=== PATIENT | male | born 1950 | race Caucasian/White ===

== ENCOUNTER 2018-10-14 09:49 | Outpatient (CLI) | payer OTHER, SELFPAY ==
[2018-10-14 11:57] LABS: INR 1.9 (0.9-1.1); Prothrombin Time 18.8 sec (9.3-11.0)
[2018-10-14 14:15] LABS: Hemoglobin A1C 8.3 % (4.5-6.2)
== END 2018-10-14 10:09 ==
PROVIDERS: PCP Family Medicine; Visit Provider Family Medicine
DX: I48.91 Unspecified atrial fibrillation (principal); E11.9 Type 2 diabetes mellitus without complications
CPT/HCPCS: 36415; 83036; 85610; 87086

== ENCOUNTER 2018-10-14 09:56 | Outpatient (REF) | payer OTHER, SELFPAY | END 2018-10-14 10:16 | LOC: LBN 09:56 | PROVIDERS: PCP Family Medicine; Visit Provider Family Medicine | DX: R30.0 Dysuria (principal) | CPT/HCPCS: 87077; 87086; 87186 ==

== ENCOUNTER 2018-10-20 06:38 | Emergency (ER) | payer OTHER, SELFPAY ==
[2018-10-20] VITALS (19 sets, daily range): BP systolic 101–145; BP diastolic 76–96; PULSE 99–135; RESP 16–18; TEMP 36.6–36.8; O2SAT 93–98
--- NOTE | 2018-10-20 07:16 | DI.CT_ITS ---
SYMPTOMS/DIAGNOSIS: RT LOWER QUAD PAIN, ? APPENDICITIS VS DIVERTICULITIS VS HERNIA CT OF THE ABDOMEN AND PELVIS: Comparison is made with [id number]. The urinary bladder shows marked wall thickening which was not present on the previous exam. There is some adjacent stranding in the surrounding fat. The prostate is enlarged, impressing on the base of the bladder. There is dilatation of the right ureter as well as some urothelial enhancement and periureteral stranding. No obstructing stones are seen. There is mild right hydronephrosis. There is also mild dilatation of the left ureter and mild urothelial enhancement when compared with the previous exam. A nonobstructing stone is again seen at the lower pole of the left kidney. The heart is enlarged. The lung bases are clear. There has been previous surgery at the GE junction and fundus of the stomach. A small to moderate sized hiatal hernia is present. There is a nodular area of enhancement seen in the antrum of the stomach measuring 11 mm in diameter. No bowel dilatation is seen. The appendix appears normal. There is extensive diverticulosis but no evidence of diverticulitis. There is no free air or free fluid. The patient is status post midline hernia repair. There are bilateral fatty containing inguinal hernias. The liver shows mild enlargement and fatty infiltration. Stones vs sludge are noted in the gallbladder. There is no abnormal gallbladder wall distention, wall thickening or biliary dilatation. The pancreas shows mild atrophy. The spleen and adrenals are unremarkable. There is a retroaortic left renal vein. The aorta is normal in diameter and shows calcification. Degenerative disc changes are seen in the spine. Degenerative changes are also seen in both hips. IMPRESSION: Bladder wall thickening and surrounding stranding is suspicious for cystitis. There also appears to be mild dilatation of both ureters, right greater than left with some urothelial enhancement. No obstructing stones are seen.
--- NOTE | 2018-10-20 07:22 | ED.GENADUL_ITS ---
Discharge Plan Disposition Patient Disposition: STILL A PATIENT Condition: Fair Discharge Details Chief Complaint: GenMedical Clinical Impression: Abdominal pain, Urinary tract infection Primary Care Provider: Dominic Restrepo ED Provider: Mesfin Kern Maurepas Meds and New Rx's Prescriptions: New ciprofloxacin HCl 500 mg tablet 500 mg PO BID Qty: 14 RF: 0 Continued cholecalciferol (vitamin D3) 1,000 UNIT capsule 5,000 unit PO DAILY RF: 0 multivitamin [Daily Vitamin] 1 EACH tablet 2 ea PO DAILY RF: 0 cyanocobalamin (vitamin B-12) [Vitamin B-12] 500 MCG tablet 500 mcg PO DAILY RF: 0 calcium carbonate-vitamin D3 [Calcium 600 + D(3)] 1 EACH tablet 2 ea PO DAILY RF: 0 iron 159 MG tablet extended release 159 mg PO DAILY RF: 0 bupropion HCl 150 MG tablet extended release 24 hr 150 mg PO DAILY 30 Days Qty: 30 RF: 3 metformin [Glucophage] 1,000 MG tablet 1,000 mg PO BID Qty: 180 RF: 4 lovastatin 20 MG tablet 20 mg PO DAILY Qty: 90 RF: 3 lisinopril 5 MG tablet 5 mg PO DAILY Qty: 90 RF: 3 diltiazem HCl [Cardizem CD] 240 mg capsule,extended release 24hr 240 mg PO DAILY Qty: 90 RF: 3 terazosin 2 mg capsule 2 mg PO DAILY Qty: 90 RF: 3 warfarin [Coumadin] 5 mg tablet 5 mg PO DIRECTED Qty: 90 RF: 4 ascorbic acid (vitamin C) [Vitamin C] 1,000 MG tablet extended release 1,000 mg PO DAILY RF: 0 omega-3 fatty acids [Fish Oil Concentrate] 1,000 mg Capsule 2,400 mg PO DAILY RF: 0 Discontinued cephalexin 500 mg capsule 500 mg PO QID Qty: 28 RF: 0 Discharge Instructions Additional Instructions: Your cat scan did not show any concerning findings other than you continue to have a urinary tract infection follow up with your primary care provider in a week, and you should have your inr rechecked at that time if you have severe worsening pain or fevers return to the emergency department Medical Decision Making <Gloria Travis DO - Last Filed: 10/20/18 07:34> 67-year-old male with a history of diabetes, atrial fibrillation on Coumadin, hyperlipidemia, hypertension, depression, osteoarthritis who presents with intermittent dull, right lower quadrant abdominal pain for the past 3 days. No other associated symptoms. Is currently taking Bactrim for a UTI per PCP but no relief in symptoms after starting antibiotics. Pulse 103. Afebrile. Patient appears nontoxic and in no acute distress. He has right lower quadrant tenderness but no rebound, guarding. Negative heel jar sign, psoas sign, obturator sign. Differential diagnosis includes acute appendicitis, diverticulitis, pyelonephritis, kidney stone, hernia, bowel obstruction. Will place an IV, bolus IV fluids, labs, urinalysis, CT abdomen and pelvis. Patient is declining pain medication at this time. 0730 -- case endorsed to Dr. Kern to f/u on lab and imaging results. Medical Records Medical records reviewed: Yes I reviewed the patient's medical records. ECG Data Attestation: I personally reviewed and interpreted this ECG (s) as follows: Interpretation: 0727: Rate of 118. Atrial fibrillation. T wave inversion in 1, 2, aVL, appears new compared to previous. No acute ST elevation or depression. QTc 448. QRS 92. HPI <Gloria Travis DO - Last Filed: 10/20/18 07:34> General Mode of arrival: ambulatory . Date/Time Provider Initiated Documentation: 10/20/18 06:38 . Limitations to Documentation: no limitations . Information obtained by: patient . HPI Narrative: Pt is a 67yo M w/ a h/o DM, Afib, BPH, Depression, HTN, HLD, Osteoarthritis who presents with intermittent, dull right lower quadrant abdominal pain for the past 3 days. Patient denies radiation of pain, states the pain is currently 6/10, and denies any aggravating or relieving factors. Patient states he has not taken any medication for pain patient states he had similar pain one year ago and was diagnosed with diverticulitis. He denies any fever, nausea, vomiting, rectal bleeding, chest pain or shortness of breath. Patient was seen by his PCP office recently and diagnosed with UTI for symptoms of dysuria, urgency, frequency and states he has been taking Bactrim but has had no relief of symptoms. Related Data Home Medications Medication Instructions Recorded Confirmed cholecalciferol (vitamin D3) 5,000 unit PO DAILY 02/19/13 10/20/18 calcium carbonate-vitamin D3 2 ea PO DAILY 03/29/14 10/20/18 [Calcium 600 + D(3)] cyanocobalamin (vitamin B-12) 500 mcg PO DAILY 03/29/14 10/20/18 [Vitamin B-12] multivitamin [Daily Vitamin] 2 ea PO DAILY 03/29/14 10/14/18 iron 159 mg PO DAILY 05/29/17 10/20/18 bupropion HCl 150 mg PO DAILY 30 Days #30 tab-cap 07/01/17 10/20/18 metformin [Glucophage] 1,000 mg PO BID #180 tab-cap 07/26/17 10/20/18 lovastatin 20 mg PO DAILY #90 tab-cap 10/25/17 10/20/18 ascorbic acid (vitamin C) [Vitamin 1,000 mg PO DAILY 01/03/18 10/20/18 C] lisinopril 5 mg PO DAILY #90 tab-cap 01/24/18 10/20/18 diltiazem CD 240 mg 240 mg PO DAILY #90 tab-cap 06/25/18 10/20/18 capsule,extended release 24 hr terazosin 2 mg capsule 2 mg PO DAILY #90 tab-cap 08/21/18 10/20/18 warfarin 5 mg tablet 5 mg PO DIRECTED #90 tab-cap 10/15/18 10/20/18 ciprofloxacin HCl 500 mg PO BID #14 tab 10/20/18 omega-3 fatty acids [Fish Oil 2,400 mg PO DAILY 10/20/18 10/20/18 Concentrate] Previous Rx's Medication Instructions Recorded bupropion HCl 150 mg PO DAILY 30 Days #30 tab-cap 07/01/17 metformin [Glucophage] 1,000 mg PO BID #180 tab-cap 07/26/17 lovastatin 20 mg PO DAILY #90 tab-cap 10/25/17 lisinopril 5 mg PO DAILY #90 tab-cap 01/24/18 diltiazem CD 240 mg 240 mg PO DAILY #90 tab-cap 06/25/18 capsule,extended release 24 hr terazosin 2 mg capsule 2 mg PO DAILY #90 tab-cap 08/21/18 warfarin 5 mg tablet 5 mg PO DIRECTED #90 tab-cap 10/15/18 ciprofloxacin HCl 500 mg PO BID #14 tab 10/20/18 Allergies Allergy/AdvReac Type Severity Reaction Status Date / Time No Known Allergies Allergy Unverified 10/14/18 09:16 General Stated Complaint: GenMedical TREVOR: 3 Review of Systems <Gloria Travis DO - Last Filed: 10/20/18 07:34> Review of Systems All systems reviewed & are unremarkable except as noted in HPI and below Constitutional Reports as per HPI, Denies chills and Denies fever(s) Eyes Denies blurry vision ENT Denies dizziness, Denies sore throat and Denies throat swelling Cardiovascular Denies chest pain and Denies dyspnea Respiratory Denies dyspnea Gastrointestinal Reports abdominal pain, Denies diarrhea and Denies vomiting Genitourinary Denies hematuria and Denies dysuria Musculoskeletal Denies back pain and Denies numbness Integumentary/Breasts Denies lesions and Denies rash Neurologic Denies dizziness and Denies numbness Allergic/Immunologic Denies throat swelling PFSH <Gloria Travis DO - Last Filed: 10/20/18 07:34> Medical History Atrial fibrillation BPH (benign prostatic hyperplasia) Chronic anticoagulation DM (diabetes mellitus) Depression Hyperlipidemia Osteoarthritis of both knees Surgical History Cholecystectomy (02/20/18) Ronnell Fundoplication Repair of umbilical hernia Replacement of total knee joint Aviva-en-y surgery Tonsillectomy Vasectomy Family History Mother No problems noted. Father No problems noted. Sister No problems noted. Sister No problems noted. Brother No problems noted. Brother No problems noted. Brother No problems noted. Son No problems noted. Son No problems noted. Son No problems noted. Social History Smoking/Tobacco Use Status: Never alcohol intake: never substance use type: does not use Exam <Gloria Travis DO - Last Filed: 10/20/18 07:34> Const General: cooperative, healthy appearing and no acute distress HENMT Head: normal to inspection Face and sinus: normal facial exam Eyes General: appearance normal, both eyes and all related structures EOM: EOM intact bilaterally Neck Neck: normal visual inspection Lymphatic: no lymphadenopathy noted Chest Chest: normal inspection of the chest and no tenderness Resp Effort & Inspection: normal respiratory effort and able to speak in complete sen tences Auscultation: clear to auscultation bilaterally Cardio Rate: regular rate Rhythm: regular rhythm GI Inspection: normal to inspection Palpation: soft, not firm, not rigid and tender in the RLQ and suprapubicly; obturator sign negative, psoas sign negative and with no rebound tenderness Auscultation: normal bowel sounds Male General Exam: Yes normal external exam Penis: normal penis Scrotum: scrotum normal Testes: normal, no testicular mass, no testicular swelling and no testicular tenderness Skin General skin exam: no rashes or lesions noted Neuro General: alert, awake and oriented x3 Cognition: normal cognition Speech: speech normal Motor: muscle tone normal throughout Sensory Exam: no sensory deficits noted Extrem General: normal to inspection, full ROM, normal capillary refill, no calf tenderness bilaterally and no edema Other: Chronic skin changes bilateral lower extremities, may be venous stasis. Psych Appearance: grossly normal Mental Status: mental status grossly normal Speech and Movement: speech and movement normal Affect: normal affect Course <Gloria Travis DO - Last Filed: 10/20/18 07:34> Vital Signs Temperature 97.9 F 10/20/18 06:48 Pulse 103 H 10/20/18 06:48 Respiratory Rate 18 10/20/18 06:48 Blood Pressure 140/77 10/20/18 06:48 Pulse Oximetry 96 10/20/18 06:48 Temperature 97.9 F 10/20/18 06:48 Temperature Source Temporal Artery Scan 10/20/18 06:48 Pulse 103 H 10/20/18 06:48 Respiratory Rate 18 10/20/18 07:04 Respiratory Effort 10/20/18 07:14 Respiratory Depth Normal 10/20/18 07:04 Respiratory Pattern Normal 10/20/18 07:04 Blood Pressure 140/77 10/20/18 06:48 Blood Pressure Position Sitting 10/20/18 06:48 Pulse Oximetry 96 10/20/18 06:48 Oxygen Delivery Method Room Air 10/20/18 06:48 Oxygen Flow Rate 0 10/20/18 06:48 Pain Level 6 10/20/18 06:48 Sign Out <Gloria Travis DO - Last Filed: 10/20/18 07:34> Sign Out Data: Sign Out Comment: Follow-up on labs and imaging results Last updated by Gloria Travis DO at 10/20/18 07:31 Post-Handoff Eval: pt's blood work shows no acute abnormalities, urine does appera to be still infected. He has been on cephalexin but only has been taking it twice a day. His ct shows evidence of bladder and ureter infection per Dr. Mcclain. PT is afebrile, remains hd stable and no longer has any pain. I am going to stop his cephalexin and start cipro, advised f/u with pcp to have inr checked in a week and f/u on this and return precautions given
[2018-10-20] MEDS: Normal Saline 250 ML IV (07:30)
[2018-10-20 07:32] LABS: Abs Immature Grans 0.03 k/cumm (0.0-0.09); Absolute Basophil Count 0.03 k/cumm (0.0-0.2); Absolute Eosinophil Count 0.13 k/cumm (0.0-0.7); Absolute Lymphocyte Count 0.82 k/cumm (1.2-3.4); Absolute Monocyte Count 1.28 k/cumm (0.11-0.7); Absolute Neutrophil Count 9.25 k/cumm (1.2-6.7); Basophils % 0.3; Eosinophils % 1.1; HCT 39.9 % (40.0-50.0); HGB 13.5 g/dL (13.5-17.5); Immature Grans % 0.3; Lymphocytes % 7.1; Mean Corp. HGB Concentration 33.8 g/dL (32.0-36.0); Mean Corpuscular Hemoglobin 30.8 pg (27.0-33.0); Mean Corpuscular Volume 90.9 fL (80-95); Mean Platelet Volume 9.2 fL (8.0-11.0); Monocytes % 11.1; Neutrophils % 80.1; Platelet Count 258 x1000/uL (130-400); RBC 4.39 m/cumm (4.50-6.00); RBC Distribution Width 14.4 % (11.8-14.1); White Blood Cell Count 11.55 k/cumm (4.4-10.8)
[2018-10-20] MEDS: Normal Saline Flush 10 ML SYR IVP (07:33)
[2018-10-20 07:53] LABS: ALT 49 U/L (12-78); AST 28 U/L (15-37); Albumin 3.5 g/dL (3.4-5.0); Alkaline Phosphatase 71 U/L (46-116); Anion Gap 8.4 mmol/L (3-11); BUN 14 mg/dL (7-18); Bilirubin, Total 0.7 mg/dL (0.2-1.0); CO2 26.6 mmol/L (21.0-32.0); CREATININE 1.21 mg/dL (0.70-1.30); Calcium 9.3 mg/dL (8.5-10.1); Chloride 102 mmol/L (98-107); Estimated GFR 59.64 (mL/min/1.73m2); Glucose 215 mg/dL (70-100); Lipase 72 U/L (73-393); Potassium 4.2 mmol/L (3.5-5.1); Sodium 137 mmol/L (136-145); Total Protein 7.5 g/dL (6.4-8.2)
[2018-10-20 07:59] LABS: Bilirubin Negative (Negative); Blood Moderate (Negative); Clarity Cloudy; Glucose Negative (Negative); Ketones Negative (Negative); Leukocyte Esterase Large (Negative); Nitrite Negative (Negative); Specific Gravity 1.015 (1.005-1.025); Urobilinogen 0.2 EU/dL (Up TO 0.2)
[2018-10-20 08:04] LABS: INR 1.6 (0.9-1.1)
[2018-10-20 08:05] LABS: Bacteria Moderate HPF (Negative); C & S Indicated? Yes; Casts Negative LPF (Negative); Crystals Negative HPF (Negative); Epithelial Cells Rare HPF (Negative); Mucus Moderate (Negative); RBC 20-50 (0-2); WBC >50 HPF (0-5)
[2018-10-20] MEDS: Omnipaque 350 MG/ML 100 ML BTL IJ (08:13)
== END 2018-10-20 09:23 | disposition still patient (30) ==
PROVIDERS: Physician Assistant; Emergency Provider Emergency Medicine; PCP Family Medicine
DX: R10.31 Right lower quadrant pain (principal); N39.0 Urinary tract infection, site not specified; R79.1 Abnormal coagulation profile; T45.515A Adverse effect of anticoagulants, initial encounter; Z79.01 Long term (current) use of anticoagulants; I48.91 Unspecified atrial fibrillation; E11.9 Type 2 diabetes mellitus without complications; Z79.84 Long term (current) use of oral hypoglycemic drugs; I10 Essential (primary) hypertension
CPT/HCPCS: 36415; 80053; 83690; 87077; 93005; 99285; 74177; 81003; 81015; 85025; 85610; 87086; 87186; 93010; 99284; J3490

== ENCOUNTER 2018-11-06 10:45 | Outpatient (CLI) | payer OTHER, SELFPAY ==
[2018-11-06 11:39] LABS: INR 1.6 (0.9-1.1)
== END 2018-11-06 11:05 ==
PROVIDERS: PCP Family Medicine; Visit Provider Family Medicine
DX: I48.91 Unspecified atrial fibrillation (principal); Z79.01 Long term (current) use of anticoagulants
CPT/HCPCS: 36415; 85610

== ENCOUNTER 2018-12-20 09:09 | Outpatient (CLI) | payer OTHER, SELFPAY ==
[2018-12-20 10:25] LABS: INR 2.5 (0.9-1.1); Prothrombin Time 25.6 sec (9.3-11.0)
== END 2018-12-20 09:29 ==
PROVIDERS: PCP Family Medicine; Visit Provider Family Medicine
DX: I48.91 Unspecified atrial fibrillation (principal); Z79.01 Long term (current) use of anticoagulants
CPT/HCPCS: 36415; 85610

== ENCOUNTER 2019-01-05 15:26 | Outpatient (CLI) | payer OTHER, SELFPAY ==
--- NOTE | 2019-01-05 14:50 | DI.RAD_ITS ---
SYMPTOM/DIAGNOSIS: NECK PAIN, M54.2 CERVICAL SPINE: Multiple views were obtained. There is a torticollis to the right. There are very prominent hypertrophic degenerative changes of the vertebral endplates and facet joints throughout the cervical region. There is multi level disc space narrowing throughout the cervical region. Neural foramina are well visualized on the right and appear fairly well maintained. Neural foramina are not well seen on the left due to positioning. No additional significant bony abnormality is seen. CONCLUSION: Severe DJD of the cervical spine as described above.
== END 2019-01-05 15:46 ==
PROVIDERS: PCP Family Medicine; Visit Provider Internal Medicine
DX: M54.2 Cervicalgia (principal); M50.122 Cervical disc disorder at C5-C6 level with radiculopathy; M47.22 Other spondylosis with radiculopathy, cervical region
CPT/HCPCS: 72050

== ENCOUNTER 2019-01-23 01:19 | Outpatient (CLI) | payer OTHER, SELFPAY ==
[2019-01-23 09:20] LABS: INR 2.2 (0.9-1.1); Prothrombin Time 21.8 sec (9.3-11.0)
[2019-01-23 09:28] LABS: Hemoglobin A1C 6.8 % (4.5-6.2)
== END 2019-01-23 01:39 ==
PROVIDERS: PCP Family Medicine; Visit Provider Family Medicine
DX: E11.9 Type 2 diabetes mellitus without complications (principal); I48.91 Unspecified atrial fibrillation; Z79.01 Long term (current) use of anticoagulants
CPT/HCPCS: 36415; 83036; 85610

== ENCOUNTER 2019-04-04 08:16 | Outpatient (CLI) | payer OTHER, SELFPAY ==
[2019-04-04 10:05] LABS: INR 2.1 (0.9-1.1); Prothrombin Time 21.2 sec (9.3-11.0)
== END 2019-04-04 08:36 ==
PROVIDERS: PCP Family Medicine; Visit Provider Family Medicine
DX: I48.91 Unspecified atrial fibrillation (principal); Z79.01 Long term (current) use of anticoagulants
CPT/HCPCS: 36415; 85610

== ENCOUNTER 2019-07-29 12:36 | Outpatient (CLI) | payer OTHER, SELFPAY ==
[2019-07-29 13:48] LABS: Hemoglobin A1C 7.6 % (4.5-6.2)
[2019-07-29 14:06] LABS: INR 2.1 (0.9-1.1); Prothrombin Time 21.1 sec (9.3-11.0)
== END 2019-07-29 12:56 ==
PROVIDERS: PCP Family Medicine; Visit Provider Family Medicine
DX: E11.9 Type 2 diabetes mellitus without complications (principal); I48.91 Unspecified atrial fibrillation
CPT/HCPCS: 36415; 83036; 85610

== ENCOUNTER → 2019-08-18 11:10 | Outpatient (BNVA) | payer OTHER, SELFPAY | PROVIDERS: PCP Family Medicine; Referring Provider Family Medicine; Visit Provider Internal Medicine Cardiovascular Disease | DX: I48.91 Unspecified atrial fibrillation (principal); Z79.01 Long term (current) use of anticoagulants; I10 Essential (primary) hypertension; E11.9 Type 2 diabetes mellitus without complications; Z79.84 Long term (current) use of oral hypoglycemic drugs | CPT/HCPCS: 99204; 99215 ==

== ENCOUNTER 2019-09-17 08:56 | Outpatient (CLI) | payer OTHER, SELFPAY ==
[2019-09-17 10:22] LABS: Prothrombin Time 10.5 sec (9.3-11.0)
== END 2019-09-17 09:16 ==
PROVIDERS: PCP Family Medicine; Visit Provider Family Medicine
DX: I48.91 Unspecified atrial fibrillation (principal); Z79.01 Long term (current) use of anticoagulants
CPT/HCPCS: 36415; 85610

== ENCOUNTER 2019-10-24 01:43 | Outpatient (CLI) | payer OTHER, SELFPAY | END 2019-10-24 02:03 | PROVIDERS: PCP Family Medicine; Visit Provider Family Medicine | DX: R69 Illness, unspecified (principal) | CPT/HCPCS: 36415; 85610 ==

== ENCOUNTER → 2020-01-20 08:51 | Outpatient (BNVA) | payer OTHER, SELFPAY | PROVIDERS: PCP Family Medicine; Referring Provider Family Medicine; Visit Provider Nurse Practitioner Gerontology | DX: R31.0 Gross hematuria (principal); N40.0 Benign prostatic hyperplasia without lower urinary tract symptoms; E11.42 Type 2 diabetes mellitus with diabetic polyneuropathy; I10 Essential (primary) hypertension; Z79.84 Long term (current) use of oral hypoglycemic drugs | CPT/HCPCS: 81003; 99204; 99215 ==

== ENCOUNTER 2020-01-20 09:59 | Outpatient (REF) | payer OTHER, SELFPAY ==
--- NOTE | 2020-01-20 09:30 | PAPNONF_PTH ---
PATIENT: Eugene Rueda LOC: [facility] U#:[id number] AGE/SX: 69/M ROOM: RE01/20/[address]: Jolly Perry DNP : 1950 BED: DIS: 01/20/2020 SPEC #: [id number] RECD: 01/20/20 13:10 STATUS: CORNEL REDaniel #: [id number] TAYLOR: 01/20/20 09:[address]: Jolly Perry DEPT: [facility] Cytology RECD BY: Pablo Monaco ENTERED: 01/20/20 13:12 SP TYPE: ARIC WOODRUFF DR: Dominic Restrepo MD Tissues: 1 - BODY FLUID CYTO(SPUTUM/URINE)UV Procedures: BODY FLUID CYTO(URINE/SPUTUM) Comments: [id number] (Urine Total Volume = 60 ml's) (30 ml's Urine & 30 mls Cytolyte ADDED IN 2 CONTAINERS)
== END 2020-01-20 10:19 ==
LOC: LBN 09:59
PROVIDERS: PCP Family Medicine; Visit Provider Nurse Practitioner Gerontology
DX: R31.0 Gross hematuria (principal); R82.89 Other abnormal findings on cytological and histological examination of urine
CPT/HCPCS: 88104

== ENCOUNTER 2020-02-04 08:38 | Day surgery (SDC) | payer OTHER, SELFPAY ==
[2020-02-04 08:59] VITALS: BP 150/89; PULSE 104; RESP 20; TEMP 36.7; O2SAT 95
[2020-02-04] MEDS: Lactated Ringers 1,000 ML 80 ML IV (09:28)
--- NOTE | 2020-02-04 09:30 | HPE_ITS ---
Date of service: 02/04/20 Time of Service: 09:30 Assessment and Plan Assessment and plan (1) Gross hematuria: Status: Acute Assessment and plan: We will complete his hematuria work-up with a cystoscopy and retrograde pyelogram. If we find any evidence of bladder tumor, we will go ahead and resect the lesion. History of Present Illness History of Present Illness Chief Complaint: Hematuria Narrative: This is a 69-year-old gentleman who has had intermittent episodes of gross painless hematuria. He was started on finasteride with the presumption that the prostate was the most likely source of his bleeding. He has not seen any additional gross hematuria, but he has persistent microscopic hematuria. He does have a history of atrial fibrillation and requires chronic anticoagulation. He has been evaluated with a CT scan of the abdomen and pelvis approximately 1 year ago. No renal masses were identified. There was some mild dilation of the right ureter. He presents now for cystoscopy with bilateral retrograde pyelogram to complete his hematuria work-up. If we identify a bladder tumor, we will resect the lesion and cauterize it as well. Review of Systems Narrative: No fevers or chills No vision change or dysphasia No diabetes or thyroid No shortness of breath, cough or hemoptysis No chest pain or palpitations No nausea, vomiting, hepatitis, ulcers, jaundice, diarrhea or constipation No seizures, strokes or peripheral neuropathy No bleeding disorders or anemia No gout or arthralgia [facility] Family History (Updated 02/02/20 @ 09:18 by Maicol Cosme) Mother Cancer Father Heart disease Sister Cancer Sister No problems noted. Brother No problems noted. Brother No problems noted. Brother No problems noted. Son No problems noted. Son No problems noted. Son No problems noted. Social History (Updated 02/02/20 @ 09:17 by Maicol Cosme) Smoking/Tobacco Use Status: Never Second Hand Exposure: Yes Alcohol Intake: current Alcohol Intake frequency: holidays/special occasions only Drug use: Never Substance use type: does not use Caregiver/Support person: No Household members: other Details: son Housing: apartment Communication Needs: None Do you need help understanding health information?: Never Pets and animals: No Do you think of yourself as: straight/heterosexual Current gender identity: male What is your relationship status?: How often do you talk on the phone with friends or family?: once per week How often do you get together with friends or relatives?: decline to answer How often do you attend baptist or zoroastrian services?: decline to answer Do you belong to any clubs or organized social groups?: no Panel score (0-1 are the most socially isolated patients): 0 What type of physical activity do you participate in: walking Duration: 15-30 minutes/day Frequency: 1-2 times per week Velia/Pentecostal: Sabianism Special velia needs: No Seatbelt use: always Helmet use: No Drive intox or ride w/intox route sales delivery driver: No Do you feel safe at home: Yes Do you feel safe in your relationship?: Yes Meds Home Medications and Allergies Home Medications Medication Instructions Recorded Confirmed Type calcium carbonate-vitamin D3 2 ea PO DAILY 03/29/14 02/04/20 History [Calcium 600 + D(3)] cyanocobalamin (vitamin B-12) 500 mcg PO DAILY 03/29/14 02/02/20 History [Vitamin B-12] multivitamin [Daily Vitamin] 2 ea PO DAILY 03/29/14 02/04/20 History ascorbic acid (vitamin C) [Vitamin 1,000 mg PO DAILY 01/03/18 02/04/20 History C] omega-3 fatty acids [Fish Oil 2,400 mg PO DAILY 10/20/18 02/04/20 History Concentrate] lisinopril 5 mg tablet 5 mg PO DAILY #90 tab-cap 02/26/19 02/04/20 Rx diltiazem HCl 240 mg 240 mg PO DAILY #90 tab-cap 06/24/19 02/04/20 Rx capsule,extended release 24 hr bupropion HCl 150 mg 24 hr tablet, 150 mg PO DAILY 30 Days #30 tab-cap 07/28/19 02/04/20 Rx extended release ferrous sulfate, dried 159 mg (45 159 mg PO DAILY 07/28/19 02/04/20 History mg iron) tablet,extended release metformin 1,000 mg tablet 1,000 mg PO BID #180 tab-cap 07/28/19 02/04/20 Rx terazosin 2 mg capsule 2 mg PO DAILY #90 tab-cap 07/28/19 02/04/20 Rx apixaban 5 mg tablet 5 mg PO BID #60 tab 08/18/19 02/04/20 Rx dapagliflozin 10 mg tablet 10 mg PO DAILY #30 tab 02/11/20 04/30/20 Rx finasteride 5 mg tablet 5 mg PO DAILY #30 tab 12/25/19 02/04/20 Rx lovastatin 20 mg tablet 20 mg PO DAILY #90 tab-cap 01/20/20 02/04/20 Rx adjuvant AS01B (PF)vial 1 of 2 0.5 ml IM DAILY #0.5 ml 01/27/20 02/04/20 Rx Allergies Allergy/AdvReac Type Severity Reaction Status Date / Time No Known Allergies Allergy Verified 02/04/20 08:45 Exam Narrative Exam Narrative: He is in no obvious distress. He is cooperative. His vital signs are documented elsewhere His chest wall motion is normal. He is not short of breath at rest. His lungs are clear Cardiac exam shows an irregular rate and rhythm His abdomen is obese but soft with no masses There is no edema in the lower extremities. He is awake, alert and oriented. Results Last Vital Signs Temp 36.7 C 02/04/20 08:59 Pulse 104 H 02/04/20 08:59 Resp 20 02/04/20 08:59 BP 150/89 H 02/04/20 08:59 Pulse Ox 95 02/04/20 08:59 COVID-19 Screening Traveled to [place] from one of the affected countries or regions?: NO Medical treatment received for symptoms/illness related to travel?: Preop COVID testing completed and negative.
[2020-02-04] MEDS: ceFAZolin 1 GM/50 ML BAG IVPB (10:41)
[2020-02-04] MEDS: Lidocaine 2% Jelly 6 ML SYR (10:51)
--- NOTE | 2020-02-04 11:14 | BLADDER_PTH ---
PATIENT: Eugene Rueda LOC: [facility] U#:[id number] AGE/SX: 69/M ROOM: RE02/04/[address]: Tamir Osuna MD : 1950 BED: DIS: 02/04/2020 SPEC #: [id number] RECD: 02/04/20 12:20 STATUS: TERENCENeela REQ #: [id number] TAYLOR: 02/04/20 11:[address]: Tamir Osuna DEPT: Surgical Specimen RECD BY: Pablo Monaco ENTERED: 02/04/20 12:25 SP TYPE: Bladder OTHR DR: Dominic Restrepo MD Tissues: 1 - BLADDER BIOPSY Procedures: IMMUNOPEROXIDASE STAIN GROSS AND MICRO LEVEL 5 Comments: [id number]
--- NOTE | 2020-02-04 11:21 | W.PM.DSUDISC ---
Discharge Plan Disposition Patient Disposition: HOME Condition: Stable Discharge Details Attending Provider: Tamir Osuna Primary Care Provider: Dominic Restrepo Home Meds and New Rx's Prescriptions: No Action bupropion HCl 150 mg tablet extended release 24 hr 150 mg PO DAILY 30 Days Qty: 30 RF: 11 metformin [Glucophage] 1,000 mg tablet 1,000 mg PO BID Qty: 180 RF: 4 terazosin 2 mg capsule 2 mg PO DAILY Qty: 90 RF: 3 Eliquis 5 mg tablet 5 mg PO BID Qty: 60 RF: 12 Shingrix Adjuvant Component-PF Suspension 0.5 ml IM DAILY Qty: 0.5 RF: 1 finasteride 5 mg tablet 5 mg PO DAILY Qty: 30 RF: 2 multivitamin [Daily Vitamin] 1 EACH tablet 2 ea PO DAILY RF: 0 cyanocobalamin (vitamin B-12) [Vitamin B-12] 500 MCG tablet 500 mcg PO DAILY RF: 0 calcium carbonate-vitamin D3 [Calcium 600 + D(3)] 1 EACH tablet 2 ea PO DAILY RF: 0 lisinopril 5 mg tablet 5 mg PO DAILY Qty: 90 RF: 3 diltiazem HCl [Cardizem CD] 240 mg capsule,extended release 24hr 240 mg PO DAILY Qty: 90 RF: 3 iron 159 mg (45 mg iron) tablet extended release 159 mg PO DAILY RF: 0 Farxiga 10 mg tablet 10 mg PO DAILY Qty: 30 RF: 5 lovastatin 20 mg tablet 20 mg PO DAILY Qty: 90 RF: 3 ascorbic acid (vitamin C) [Vitamin C] 1,000 MG tablet extended release 1,000 mg PO DAILY RF: 0 omega-3 fatty acids [Fish Oil Concentrate] 1,000 mg Capsule 2,400 mg PO DAILY RF: 0 Discharge Instructions Additional Instructions: may remove thornton prior to discharge (if urine remains transparent) f/u 1 to 2 weeks to review pathology results (can be done by phone if pt prefers) No lifting over 10 pounds for 2 to 3 days Hold blood thinners for 48 hours (or until no blood is visible) Activity:: no lifting over 10 ounds for 48 hours Shower/Bathe:: 24 hours Diet:: As Tolerated Discharge Orders Discharge Orders: Discharge Order (Routine); Ordered 02/04/20 Ordered By: Tamir Osuna DS: Diagnosis Discharge Diagnosis (1) Gross hematuria: Status: Acute
--- NOTE | 2020-02-04 11:35 | ROE_ITS ---
Date of service: 02/04/20 Time of Service: 11:35 Operative Note Operative Note DATE OF PROCEDURE: 02/04/20 PRE-OP DIAGNOSIS: Hematuria POST-OP DIAGNOSIS: other Same with bladder tumor (2 to 5 cm) PROCEDURE: Cystoscopy with TURBT (2 to 5 cm) SURGEON: Tamir Osuna ANESTHESIA: MAC ESTIMATED BLOOD LOSS: 100 PATHOLOGY: other (Bladder tumor) COMPLICATIONS: None Patient was transported to: same day Patient's condition: stable Indications: This is a 69-year-old gentleman who has noticed gross painless hematuria intermittently. He had a CT of the abdomen and pelvis about a year ago which showed no renal masses. He presents for cystoscopy to evaluate his lower urinary tract Findings: Papillary tumor on posterior bladder wall (measures approximately 3 to 4 cm) Procedure Description: The patient was brought to the operating room on 02/04/2020. After successful induction of anesthesia with monitored anesthesia care he was placed in the dorsal lithotomy position. His genitalia is prepped and draped sterilely. 2% Xylocaine jelly was instilled into the urethra to act as a local anesthetic. A 22 Sammarinese rigid cystoscope was passed through the urethra into the bladder. The urethra and bladder were inspected with the 30 degree lens. The pendulous bulbous membranous urethra was all appeared normal with no strictures. The prostatic urethra was diffusely enlarged with trilobar hypertrophy. There was a fairly prominent median lobe present which made it difficult to view the ureteral orifice ease. For that reason, retrograde pyelograms were not obtained. The bladder neck was entered and the bladder mucosa was inspected. Posteriorly, there was a 3 to 4 cm papillary lesion consistent with urothelial cell carcinoma. There were numerous diverticuli present throughout the remainder of the bladder. We then removed the cystoscope and passed a 24 Sammarinese resectoscope sheath through the urethra into the bladder. We performed transurethral resection of the visible lesion using bipolar cautery and an Lumiary resectoscope. The base of the resection was cauterized using the coagulation current. All resected tissue was evacuated and sent to pathology for permanent section. At the completion of the procedure, a 16 Sammarinese Romero catheter was passed through the urethra into the bladder. The catheter balloon was inflated with 10 cc of sterile water. The catheter was hooked to gravity drainage. If the urine remains transparent, we will remove the catheter before the patient is discharged today. A belladonna and lindyum suppository was then placed rectally. The patient tolerated this procedure well.
[2020-02-04 12:05] VITALS: BP 126/76; PULSE 90; RESP 16; TEMP 36.5; O2SAT 95
== END 2020-02-04 12:25 | disposition home or self-care (01) ==
PROVIDERS: PCP Family Medicine; Visit Provider Urology
PROC: (CPT 74450; principal; 2020-02-04 10:15)
DX: C67.4 Malignant neoplasm of posterior wall of bladder (principal); N32.3 Diverticulum of bladder; R31.0 Gross hematuria; I48.91 Unspecified atrial fibrillation; Z79.01 Long term (current) use of anticoagulants
CPT/HCPCS: 52235; 88305; NC; 88307; 88361; J0690; J1885; J2001; J2250; J2704

== ENCOUNTER → 2020-02-16 15:31 | Outpatient (BNVA) | payer OTHER, SELFPAY | PROVIDERS: PCP Family Medicine; Referring Provider Family Medicine; Visit Provider Urology | DX: C67.9 Malignant neoplasm of bladder, unspecified (principal); E11.9 Type 2 diabetes mellitus without complications | CPT/HCPCS: 99212; 99441 ==

== ENCOUNTER → 2020-03-22 11:00 | Outpatient (BNVA) | payer OTHER, SELFPAY | PROVIDERS: PCP Family Medicine; Referring Provider Family Medicine; Visit Provider Surgery | DX: Z12.11 Encounter for screening for malignant neoplasm of colon (principal); Z12.12 Encounter for screening for malignant neoplasm of rectum; K63.5 Polyp of colon ==

== ENCOUNTER 2020-03-28 08:23 | Day surgery (SDC) | payer OTHER, SELFPAY ==
--- NOTE | 2020-03-28 06:13 | COLE_ITS ---
Date of service: 03/28/20 Time of Service: 10:04 Colonoscopy Report Date of procedure: 03/28/20 Pre-op diagnosis general: Hx of polyps Post-op diagnosis procedure note: same (Glasgow-diverticulosis, polyps) Procedure: Colonoscopy with polypectomy Surgeon: Fatoumata Henderson Anesthesia proc note operative: other (General/ ASA 3/ Gricel Mcduffie, SHASTA) Estimated blood loss (mL): 5 Pathology: other (ascending polyp, transverse polyp, sigmoid polyp, distal sigmoid polyps x2) Complications: None Disposition: same day Indications: Mr. Rueda is a 69 year old male with a history of Tubular and tubulovillous adenomas in 2011. He is here to discuss a colonoscopy. He denies any changes in bowel habits, melena, hematochezia or family history of colon cancer. His PMHx is significant for a-fib on apixiban, diabetes, hypertension and CARLOS A. He denies any chest pain or history of SD. Prep: Miralax/Dulcolax Procedure Start Time: 10:04 Procedure End Time: 11:30 Retraction Time: 70 minutes Findings: Moderate Glasgow diverticulosis 4 small precancerous polyp 1 sigmoid polyp >1 cm in size. Difficult to remove due to location and patient letting all the air out constantly. NOt sure If I was able to remove all of it. Area Tattoed. Patient will need to come back in 3 months and have a sigmoidos copy to check for residual polyp Procedure Description: After informed consent was obtained the patient was taken to the procedure room and placed in a left decubitous position. Monitors were applied and a time out was done. The patients name, date of , procedure, allergies to medications and metal in their body was reviewed. The patient was then sedated. Once sedated and comfortable a rectal exam was done. External exam was normal. Internal exam revealed a normal sphincter tone and no palpable masses. The prostate not palpated. The scope was then introduced and retro-flexed. No internal hemorrhoids were identified. The scope was then advanced to the cecum without difficulty. The ileocecal valve and appendiceal orifice were identified. The prep was marginal. There was scattered stool throughout. 2 L of NS was used to wash the stool away. The scope was then slowly retracted over 70 minutes back into the rectum. Polyps were removed with cold forceps in the ascending colon, transverse colon, and distal sigmoid colon x2. There was a larger flat polyp in the sigmoid colon at around 30 cm. It was removed with hot snare. It was difficult to remove due to location, size and the fact that the patient would hold his air. Once the polyp was removed the area was tattoed. There might be some residual polyp tissue. After multiple attempts to remove the area was bruised. There was glasgow- diverticulosis noted. It was moderate in the ascending and transverse colon. There was severe diverticulosis noted in the descending and sigmoid colon. The scope was removed and the patient was woken up and taken back to Same day surgery in stable condition. The patient tolerated the procedure well and there were no immediate complica tions. Follow up: I will have the patient come back in 3 months for a flexible sigmoidoscopy to look at that area again and make sure there was no residual polyp.
--- NOTE | 2020-03-28 06:14 | W.PM.DSUDISC ---
Discharge Plan Disposition Patient Disposition: HOME Condition: Stable Discharge Details Reason For Visit: Colonoscopy Attending Provider: Fatoumata Henderson Primary Care Provider: Dominic Restrepo Home Meds and New Rx's Prescriptions: Continued metformin [Glucophage] 1,000 mg tablet 1,000 mg PO BID Qty: 180 RF: 4 terazosin 2 mg capsule 2 mg PO DAILY Qty: 90 RF: 3 Eliquis 5 mg tablet 5 mg PO BID Qty: 60 RF: 12 Shingrix Adjuvant Component-PF Suspension 0.5 ml IM DAILY Qty: 0.5 RF: 1 multivitamin [Daily Vitamin] 1 EACH tablet 2 ea PO DAILY RF: 0 cyanocobalamin (vitamin B-12) [Vitamin B-12] 500 MCG tablet 500 mcg PO DAILY RF: 0 calcium carbonate-vitamin D3 [Calcium 600 + D(3)] 1 EACH tablet 2 ea PO DAILY RF: 0 lisinopril 5 mg tablet 5 mg PO DAILY Qty: 90 RF: 3 diltiazem HCl [Cardizem CD] 240 mg capsule,extended release 24hr 240 mg PO DAILY Qty: 90 RF: 3 iron 159 mg (45 mg iron) tablet extended release 159 mg PO DAILY RF: 0 Farxiga 10 mg tablet 10 mg PO DAILY Qty: 30 RF: 5 lovastatin 20 mg tablet 20 mg PO DAILY Qty: 90 RF: 3 bupropion HCl 150 mg tablet extended release 24 hr 150 mg PO DAILY 30 Days Qty: 30 RF: 11 finasteride 5 mg tablet 5 mg PO DAILY Qty: 30 RF: 2 ascorbic acid (vitamin C) [Vitamin C] 1,000 MG tablet extended release 1,000 mg PO DAILY RF: 0 omega-3 fatty acids [Fish Oil Concentrate] 1,000 mg Capsule 2,400 mg PO DAILY RF: 0 Discontinued bisacodyl [Dulcolax (bisacodyl)] 5 mg tablet,delayed release (DR/EC) 5 mg PO ONCE Qty: 4 RF: 0 polyethylene glycol 3350 17 gram powder in packet 255 g PO DAILY Qty: 15 RF: 0 Discharge Instructions Additional Instructions: Findings: multiple polyps One was fairly large and was hard to remove Follow up: 3 months for a flexible sigmoidoscopy to make sure I was able to remove all of the large polyp Please call if you develop: fevers >101.5 Nausea or Vomiting Abdominal pain that is not transient DAY SURGERY UNIT POST ENDOSCOPY INSTRUCTIONS 1. Because there will be medication in your system for the next 24 hours, you may feel a little sleepy. Your coordination will be affected. Therefore: a. Do not drive or operate dangerous equipment for 24 hours. b. Do not drink alcohol beverages for 24 hours (not even beer). c. Plan to go home and rest for the day. 2. Generally there are no restrictions on your activity after a day or so has gone by, but you may feel a bit fatigued for a few days. 3 After you arrive home you may have a light meal and return to a normal diet as you can tolerate it without feeling sick to your stomach. 4. After surgery, you may feel pain or discomfort. This should be only transient, but if it persists please contact your doctor. 5. If there are any questions regarding the findings of your procedure, please feel free to contact your doctor. 6. If you are unable to contact your doctor with a problem, contact the hospital at [phone]. 7. Continue all your regular medications unless directed otherwise. I understand the above instructions and have no questions. Signature of Patient or Responsible Adult Escort Date/Time Name of Responsible Adult Escort Signature of Nurse Date/Time Activity:: Activity as Tolerated Diet:: High Fiber diet Discharge Orders Discharge Orders: Discharge Order (Routine); Ordered 03/28/20 Ordered By: Fatoumata Henderson
[2020-03-28 08:25] VITALS: BP 148/93; PULSE 116; RESP 22; TEMP 36.2; O2SAT 97
[2020-03-28] MEDS: Lactated Ringers 1,000 ML 80 ML IV (08:55)
--- NOTE | 2020-03-28 10:27 | BOWEL_PTH ---
PATIENT: Eugene Rueda LOC: [facility] U#:[id number] AGE/SX: 69/M ROOM: RE03/28/[address]: Fatoumata Henderson MD : 1950 BED: DIS: 03/28/2020 SPEC #: [id number] RECD: 03/28/20 12:41 STATUS: CORNEL REQ #: [id number] TAYLOR: 03/28/20 10:[address]: Fatoumata Henderson DEPT: Surgical Specimen RECD BY: Bronwyn Aviles ENTERED: 03/28/20 12:42 SP TYPE: Bowel OTHR DR: Dominic Restrepo MD Tissues: 1 - BIOPSY BOWEL 2 - BIOPSY BOWEL 3 - BIOPSY BOWEL 4 - BIOPSY BOWEL Procedures: GROSS AND MICRO LEVEL 4 Comments: [id number]
[2020-03-28] MEDS: Endoscopic Tattoo 5 ML SYR IJ (11:19)
[2020-03-28 12:11] VITALS: BP 153/93; PULSE 97; RESP 16; TEMP 36.1; O2SAT 96
[2020-03-28] MEDS: dilTIAZem CD 120 MG CAPCR 240 MG PO (12:15)
== END 2020-03-28 12:38 | disposition home or self-care (01) ==
LOC: SUR 08:23
PROVIDERS: PCP Family Medicine; Visit Provider Surgery
PROC: 0DJD8ZZ Inspection of Lower Intestinal Tract, Via Natural or Artificial Opening Endoscopic (ICD-10-PCS; CPT 45378; principal; 2020-03-28 09:30)
DX: Z12.11 Encounter for screening for malignant neoplasm of colon (principal); Z86.010 Personal history of colon polyps; D12.2 Benign neoplasm of ascending colon; D12.5 Benign neoplasm of sigmoid colon; K57.30 Diverticulosis of large intestine without perforation or abscess without bleeding; Z79.01 Long term (current) use of anticoagulants; E11.9 Type 2 diabetes mellitus without complications; I10 Essential (primary) hypertension; G47.33 Obstructive sleep apnea (adult) (pediatric); I48.91 Unspecified atrial fibrillation
CPT/HCPCS: 45385; 45380; 45381; 88305; J2704

== ENCOUNTER 2020-03-29 18:09 | Outpatient (REF) | payer OTHER, SELFPAY | END 2020-03-29 18:29 | LOC: LBN 18:09 | PROVIDERS: PCP Family Medicine; Visit Provider Family Medicine | DX: S81.801A Unspecified open wound, right lower leg, initial encounter (principal) | CPT/HCPCS: 87077; 87070; 87186; 87205 ==

== ENCOUNTER → 2020-04-12 09:38 | Outpatient (BNVA) | payer OTHER, SELFPAY | PROVIDERS: PCP Family Medicine; Referring Provider Family Medicine; Visit Provider Surgery | DX: D12.2 Benign neoplasm of ascending colon (principal); D12.5 Benign neoplasm of sigmoid colon; Z48.815 Encounter for surgical aftercare following surgery on the digestive system | CPT/HCPCS: 99213 ==

== ENCOUNTER 2020-04-29 02:21 | Outpatient (CLI) | payer OTHER, SELFPAY ==
[2020-04-29 10:20] LABS: Abs Immature Grans 0.01 k/cumm (0.0-0.09); Absolute Basophil Count 0.01 k/cumm (0.0-0.2); Absolute Eosinophil Count 0.17 k/cumm (0.0-0.7); Absolute Lymphocyte Count 1.13 k/cumm (1.2-3.4); Absolute Monocyte Count 0.81 k/cumm (0.11-0.7); Absolute Neutrophil Count 5.39 k/cumm (1.2-6.7); Basophils % 0.1; Eosinophils % 2.3; HCT 42.4 % (40.0-50.0); HGB 14.1 g/dL (13.5-17.5); Immature Grans % 0.1 %; Mean Corp. HGB Concentration 33.3 g/dL (32.0-36.0); Mean Corpuscular Hemoglobin 29.3 pg (27.0-33.0); Mean Corpuscular Volume 88.1 fL (80-95); Monocytes % 10.8; Neutrophils % 71.7; Platelet Count 240 x1000/uL (130-400); RBC 4.81 m/cumm (4.50-6.00); RBC Distribution Width 14.9 % (11.8-14.1); White Blood Cell Count 7.52 k/cumm (4.4-10.8)
[2020-04-29 10:38] LABS: Hemoglobin A1C 7.7 % (3.8-5.6)
[2020-04-29 11:17] LABS: Anion Gap 12.5 mmol/L (3-11); BUN 18 mg/dL (7-18); CO2 23.5 mmol/L (21.0-32.0); CREATININE 1.04 mg/dL (0.70-1.30); Calcium 8.8 mg/dL (8.5-10.1); Chloride 103 mmol/L (98-107); Glucose 167 mg/dL (74-106); Potassium 4.1 mmol/L (3.5-5.1); Sodium 139 mmol/L (136-145)
== END 2020-04-29 02:41 ==
PROVIDERS: PCP Family Medicine; Visit Provider Surgery
DX: Z01.818 Encounter for other preprocedural examination (principal); K63.5 Polyp of colon; C67.9 Malignant neoplasm of bladder, unspecified; I10 Essential (primary) hypertension; E11.9 Type 2 diabetes mellitus without complications
CPT/HCPCS: 36415; 80048; 86850; 86900; 86901; 99213; 83036; 85025

== ENCOUNTER 2020-05-06 08:00 | Outpatient (CLI) | payer OTHER, SELFPAY ==
[2020-05-08 00:16] LABS: COVID-19 RT-PCR Result NEGATIVE (Negative)
== END 2020-05-06 08:20 ==
PROVIDERS: Urology; PCP Family Medicine; Visit Provider Surgery
DX: Z11.59 Encounter for screening for other viral diseases (principal)
CPT/HCPCS: U0003

== ENCOUNTER 2020-05-09 06:06 | Inpatient (IN) | payer OTHER, SELFPAY ==
[2020-05-09] VITALS (27 sets, daily range): BP systolic 79–152; BP diastolic 51–94; PULSE 84–117; RESP 13–23; TEMP 36.1–37.5; O2SAT 85–100
--- NOTE | 2020-05-09 06:21 | ROE_ITS ---
Date of service: 05/09/20 Time of Service: 14:28 Operative Note Operative Note DATE OF PROCEDURE: 05/09/20 PRE-OP DIAGNOSIS: Dysplastic adenomatous colon polyp POST-OP DIAGNOSIS: same PROCEDURE: 1. Cystoscopy with stent placements 2.Laparoscopic sigmoid colectomy with hand primary anastamosis SURGEON: Fatoumata Henderson ASSISTING SURGEON: Stormy [facility] DIRECTOR: China Tavares ANESTHESIA: GETA (ASA 3/ Carmelo Garcia CRNA), local and other (intrathecal) ESTIMATED BLOOD LOSS: 250 PATHOLOGY: other (portion of sigmoid colon) COMPLICATIONS: Other (Patient was in and out of afib. He was given a dose of diltiazem pre-operative) Patient was transported to: PACU Patient's condition: stable Implants: none Indications: Mr. Rueda is a pleasant 69 year old male who recently underwent a colonoscopy and was found to have 4 polyps. IN the ascending colon there was a serrated adenoma with low grade dysplacia. In the proximal sigmoid colon there was a large tubullovillous adenoma with focal high grade dysplacia which I was unable to remove completely. In the distal sigmoid colon there were 2 tubular adenomas. Discussed path finding with Mr. Rueda and we went over treatment options of repeat colonoscopy with attempt at complete removal vs laparoscopic resection of the area. Patient agreed to proceed with Laparoscopic resection. Risks, benefits and complications have been reviewed. Complications include but are not limited to bleeding, infection, anastamotic leak, injury to adjacent bowel or other organs, inability to do laparoscopicaly and adverse reaction to the medications. Questions were entertained and answered to their satisfaction and they wished to proceed. No guarantees were given or implied. Findings: Abdominal mesh identified. Adhesions noted to the mesh and from the tatooed area of the sigmoid colon to peritoneum Procedure Description: Informed consent was obtained Mr. Rueda was taken to the operating room and placed in a sitting position. When the patient was placed in a sitting position he complained of dizziness. Monitor was applied and he was noted to be in A. fib. The patient had not taken his diltiazem for the last 2 days because he had run out. We gave him a 30 mg dose of p.o. diltiazem. Next anesthesia attempted to place an epidural but due to his arthritis they were having a difficult time. Eventually an intrathecal inje ction was done to help with postoperative pain. Once the intrathecal injection and the patient was placed in a supine position on the operating room table. Monitors were applied. SCDs were applied to his lower extremities. He was then placed under general anesthesia and intubated without difficulty. At this point the patient was placed in stirrups and Dr. Osuna did his cystoscopy to look for recurrent bladder cancer. He then also placed bilateral stents and a thornton catheter. Please see his separate dictation. Once Dr. Osuna was done with his part of the surgery the drapes were removed. The patient's abdomen was clipped of hair and prepped with ChloraPrep. His scrotum penis and perineum were prepped with iodine solution. Next the patient was draped in a sterile surgical fashion. At this point a timeout was done. The patient's name, date of , allergies to medications, DVT prophylaxis, antibiotic prophylaxis, procedure type, and any concerns were reviewed. Fire risk was assessed. The patient was typed and screened prior to surgery and Blood band was on his wrist. Next 1% lidocaine was injected just above the pubic symphysis at the site of his old plastic surgery scar. An incision was made with an 11 blade. Dissection was taken down with cautery through quite a bit of scar tissue down to the fascia. The fascia was then grasped and an attempt was made to place a 12 mm port under direct visualization. Due to his scar tissue I had difficulty trying to get into his abdomen. Lidocaine was injected in the right upper quadrant and a small 5 mm incision was made with an 11 blade. The skin was grasped with penetrating towel clamps on either side of the incision and while pulling up on the skin a 5 mm Visiport was placed under direct visualization without difficulty into the abdomen. The abdomen was then insufflated. The 12 mm port was then placed under direct visualization. A second 5 mm port was placed under direct visualization in the right lower quadrant. 2 more 5 mm ports were placed under direct visualization 1 in the left upper quadrant and one in the left lower quadrant. Next the patient was placed into steep Trendelenburg and rotated to the right. Some adhesions were noted of omentum to the abdominal wall. A mesh was identified at that time. The adhesions were removed using a laparoscopic LigaSure. Once the adhesions were taken down the sigmoid colon was identified and it was followed down until I was able to see the tattoo area. Using a laparoscopic [place] and an a-traumatic grasper the colon was grasped and using the laparoscopic LigaSure the mesentery was transected about 10 cm distal to the tattooed area. The colon was then mobilized along the line of Toldt using the LigaSure. Once it was mobilized the sigmoid colon was transected using a laparoscopic linear stapler. At this point the insufflation was stopped and the 12 mm port was removed. An incision was made along his old panniculectomy scar with a 10 blade. Dissection through the subcutaneous tissue, scar tissue, and fascia was done with cautery. I then placed my finger under the fascia and opened the fascia along the linea alba. The sigmoid colon was then identified and pulled up through this incision. I marked an area about 10 cm proximal to the tattooed area. The colon still felt tethered and I did not feel that it was mobilized enough to be able to perform a anastomosis without any tension. A Chaves was placed and the abdominal wall was retracted and I was then able to transect some more of the mesentery as well as the white line of Toldt using the LigaSure. I was then able to mobilize enough of the descending colon to feel that I would have adequate length and no tension around my anastomosis. Because the bowel resected was above the pelvic rim and I did not have enough length to easily place the circular stapler the decision was made to do a handsewn anastomosis. The colon proximal to the tattooed area was transected with a linear stapler. The specimen was marked with a suture distal. The end to ends of the colon were grasped with [place] and the staple line was cut with scissors. The back wall of both ends of the colon were reapproximated with interrupted 2-0 silk sutures. The mucosa was then sutured with a 2-0 Vicryl running suture creating a good anastomosis. Silk sutures were then used to do a second layer circumferentially around the anastomosis. The bowel was then placed back into the abdomen and the abdomen was irrigated and suctioned. An instrument, needle and sponge count was done at this time and it was correct. The fascia was then closed with a running #1 Vicryl suture. The subcutaneous tissue was reapproximated with interrupted 2-0 Vicryl. The skin was closed with dino. Next the abdomen was re-insufflated and the instruments and camera were placed back into the abdomen. The abdomen was irrigated with 500 cc of fluid and suctioned out. At the end the effluent was clear. There were no signs of active bleeding. The bowel was then grasped to occlude it. A rigid proctoscope was introduced and the bowel was insufflated with air. Fluid was placed into the abdomen and with the insufflation there were no air bubbles identified. The bowel was deflated and the proctoscope was removed. Any leftover fluid in the abdomen was suctioned out. Another sponge, instrument and needle count was done at this time and was correct. At this point free of the ports were removed and the fascia was inspected for any bleeding. No bleeding was identified. The camera was removed and the last port was removed and the abdomen was deflated. The skin was then cleaned and dried and the 4 small port incisions were closed with dino. 2 x 2's and Tegaderms were applied to all 4 small incisions. A Mepilex border dressing was placed over the larger lower abdominal incision. The stents were then removed without difficulty. The Thornton catheter had 200 cc of light pink fluid which was the way it was after his cystoscopy. The urine in the tubing was light yellow. At this point the drapes were removed his perineum scrotum and penis were cleaned and dried and his legs were removed from the stirrups and placed onto the operating room table. He was then woken up and extubated. The patient was taken to PACU in stable condition. The patient tolerated the procedure and there were no immediate complications.
[2020-05-09] MEDS: Celecoxib 200 MG CAP PO (06:46)
[2020-05-09] MEDS: Gabapentin 300 MG CAP 600 MG PO (06:46)
[2020-05-09] MEDS: Acetaminophen 500 MG TAB 1000 MG PO (06:47)
[2020-05-09] MEDS: Lactated Ringers 1,000 ML 80 ML IV ×2 (06:55→14:25)
--- NOTE | 2020-05-09 06:59 | HPE_ITS ---
Date of service: 05/09/20 Time of Service: 07:27 Assessment and Plan Assessment and plan (1) Urothelial carcinoma: Status: Acute Assessment and plan: For cystoscopy and possible TURBT. We will also kelley ce ureteral stents for his colon resection. History of Present Illness History of Present Illness Chief Complaint: Bladder Cancer Narrative: This is a 69-year-old gentleman who had intermittent episodes of gross painless hematuria. He was started on finasteride with the presumption that the prostate was the most likely source of his bleeding. When he had persistent microscopic hematuria, he agreed to a cystoscopy. 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 He was also identified as having a dysplastic colon polyp that was too large to remove during colonoscopy. He will be treated with a laparoscopic colon resection. He presents for surveillance cystoscopy. We will place ureteral stents to help identify the ureters during his colon resection as well. Review of Systems Narrative: No fevers or chills No vision change or dysphasia No thyroid dysfunction No shortness of breath, cough or hemoptysis No chest pain or palpitations No nausea, vomiting, hepatitis, ulcers, jaundice, diarrhea or constipation No seizures, strokes or peripheral neuropathy Bruises easily with chronic anticoagulation No gout PFSH Medical History (Updated 05/09/20 @ 07:05 by Tamir Osuna MD) Anxiety (Inactive 08/10/08) Asbestosis (Inactive 08/10/08) Asthma (Inactive 07/08/12) Atopic conjunctivitis (Inactive 10/22/13) Atrial fibrillation (Resolved) Benign prostatic hyperplasia (Inactive 02/25/13) Bladder cancer (Acute) Carpal tunnel syndrome (Inactive) Chronic anticoagulation Chronic venous stasis (Resolved) Depressive disorder (Inactive 02/25/13) Diabetes mellitus (Inactive 02/25/13) Essential hypertension (Acute 06/24/13) Frequency of micturition (Inactive 01/03/16) Glaucoma (Inactive 10/22/13) B/L Gross hematuria (Inactive) Hyperlipidemia (Inactive 02/25/13) Hypermetropia (Inactive 10/22/13) Hypogonadism (Inactive) Idiopathic peripheral neuropathy (Inactive) Low back pain (Acute 08/10/08) Noncompliance (Resolved) Nuclear senile cataract (Inactive 10/22/13) Obesity (Inactive 08/10/08) Aviva-en-y 02/2014 Obstructive sleep apnea syndrome (Inactive 08/10/08) cpap Olecranon bursitis (Inactive) Osteoarthritis (Inactive 08/10/08) BILATERAL KNEE replacements Peptic reflux disease (Inactive 08/10/08) Peripheral neuralgia (Inactive) Presbyopia (Inactive 10/22/13) Pterygium (Inactive 08/10/08) LEFT EYE Regular astigmatism (Inactive 10/22/13) Sensorineural hearing loss, bilateral (Inactive 09/05/17) Tubular adenoma (Inactive) Tubular and tubulovillous adenoma 2011 --suggested repeat 2017 Umbilical hernia (Resolved 08/18/12) Urgency of urination (Inactive 01/03/16) Urinary tract infection (Inactive) Urothelial carcinoma (Acute) Varicose veins of lower extremity (Inactive 08/10/08) Venous insufficiency (chronic) (peripheral) (Acute) Surgical History Cholecystectomy (02/20/18) 02/02/20: Pt denies. -BR History of transurethral destruction of bladder lesion (Acute) Ronnell Fundoplication Repair of umbilical hernia Laparoscopic Aviva-en-y surgery for weight loss S/P colonoscopy (Acute) Haddad-2011- tubular and tubulovillous polyps Santiago- 2019- sessile serrated with low grade dysplacia, tubullovillous with high grade dysplacia and tubular adenomas Status post abdominoplasty (Inactive 05/23/16) Status post tonsillectomy (Inactive) Status post total knee replacement (Inactive) B/L Vasectomy Family History Mother Cancer Father Heart disease Sister Cancer Sister No problems noted. Brother No problems noted. Brother No problems noted. Brother No problems noted. Son No problems noted. Son No problems noted. Son No problems noted. Social History Smoking/Tobacco Use Status: Never Second Hand Exposure: Yes Alcohol Intake: current Alcohol Intake frequency: holidays/special occasions only Drug use: Never Substance use type: does not use Caregiver/Support person: No Household members: other Details: son Housing: apartment Communication Needs: None Do you need help understanding health information?: Never Pets and animals: No Do you think of yourself as: straight/heterosexual Current gender identity: male What is your relationship status?: How often do you talk on the phone with friends or family?: once per week How often do you get together with friends or relatives?: decline to answer How often do you attend rastafarian or sabianist services?: decline to answer Do you belong to any clubs or organized social groups?: no Panel score (0-1 are the most socially isolated patients): 0 What type of physical activity do you participate in: walking Duration: 15-30 minutes/day Frequency: 1-2 times per week Velia/Samaritan: Restoration Special velia needs: No Seatbelt use: always Helmet use: No Drive intox or ride w/intox dedicated regional driver: No Do you feel safe at home: Yes Do you feel safe in your relationship?: Yes Meds Home Medications and Allergies Home Medications Medication Instructions Recorded Confirmed Type calcium carbonate-vitamin D3 2 ea PO DAILY 03/29/14 05/09/20 History [Calcium 600 + D(3)] cyanocobalamin (vitamin B-12) 500 mcg PO DAILY 03/29/14 05/09/20 History [Vitamin B-12] multivitamin [Daily Vitamin] 2 ea PO DAILY 03/29/14 05/09/20 History Vitamin C 1,000 mg PO DAILY 01/03/18 05/09/20 History omega-3 fatty acids [Fish Oil 2,400 mg PO DAILY 10/20/18 05/09/20 History Concentrate] ferrous sulfate, dried 159 mg (45 159 mg PO DAILY 07/28/19 05/09/20 History mg iron) tablet,extended release metformin 1,000 mg tablet 1,000 mg PO BID #180 tab-cap 07/28/19 05/09/20 Rx terazosin 2 mg capsule 2 mg PO DAILY #90 tab-cap 07/28/19 05/09/20 Rx apixaban 5 mg tablet 5 mg PO BID #60 tab 08/18/19 05/09/20 Rx lovastatin 20 mg tablet 20 mg PO DAILY #90 tab-cap 01/20/20 05/09/20 Rx adjuvant AS01B (PF)vial 1 of 2 0.5 ml IM DAILY #0.5 ml 01/27/20 04/29/20 Rx bupropion HCl 150 mg 24 hr tablet, 150 mg PO DAILY 30 Days #30 tab-cap 02/05/20 05/09/20 Rx extended release dapagliflozin 10 mg tablet 10 mg PO DAILY #30 tab 04/27/20 05/09/20 Rx diltiazem HCl 240 mg 240 mg PO DAILY #90 tab-cap 04/27/20 05/09/20 Rx capsule,extended release 24 hr finasteride 5 mg tablet 5 mg PO DAILY #90 tab 04/27/20 05/09/20 Rx lisinopril 5 mg tablet 5 mg PO DAILY #90 tab-cap 04/27/20 05/09/20 Rx metronidazole 500 mg tablet 500 mg PO ONCE #8 tab 04/29/20 05/09/20 Rx neomycin 500 mg tablet 500 mg PO ONCE #8 tab 04/29/20 05/09/20 Rx ondansetron HCl 8 mg tablet 8 mg PO ONCE #3 tab 04/29/20 05/09/20 Rx Allergies Allergy/AdvReac Type Severity Reaction Status Date / Time No Known Allergies Allergy Verified 05/09/20 06:14 Exam Const General: cooperative, comfortable and no acute distress Neck Neck: supple Resp Effort & Inspection: normal respiratory effort Auscultation: clear to auscultation bilaterally Cardio Rate: regular rate Rhythm: regular rhythm GI Palpation: soft and no masses Neuro General: patient alert Results Last Vital Signs Temp 36.2 C L 05/09/20 06:10 Pulse 98 H 05/09/20 06:10 Resp 19 05/09/20 06:10 BP 144/91 H 05/09/20 06:10 Pulse Ox 97 05/09/20 06:10 COVID-19 Screening Have you,or household,traveled outside [place] in last 14 days?: No Had IN PERSON contact w/suspected or confirmed C-19 person: No
[2020-05-09] MEDS: dilTIAZem 30 MG TAB PO (08:08)
--- NOTE | 2020-05-09 08:53 | RESPIRATORY ---
Addendum entered by Luis Friedman 05/09/20 08:59: CPAP constant pressure: 15 cmH2O confirmed with [facility]. Original Note: Pt came in for DSU today, CPAP checked out by Respiratory. Pt's own machine, [facility]ios [facility] CPAP, No O2 bleed in. Face Mask: Medium DME: [facility]
[2020-05-09] MEDS: AMPICILLIN/SULBACTAM 3 GM in Normal Saline 100 ML IVPB (09:02)
--- NOTE | 2020-05-09 09:40 | W.PM.OP ---
Date of service: 05/09/20 Time of Service: 09:40 Operative Note Operative Note DATE OF PROCEDURE: 05/09/20 PRE-OP DIAGNOSIS: Bladder cancer POST-OP DIAGNOSIS: same PROCEDURE: Cystoscopy, insert bilateral lighted ureteral stents SURGEON: Tamir Osuna CUSTOMER SUPPORT AGENT: China Tavares ANESTHESIA: GETA, local and other (intrathecal catheter) ESTIMATED BLOOD LOSS: 50 PATHOLOGY: none sent Patient was transported to: no change Patient's condition: stable Indications: This is a 69-year-old gentleman who was previously identified as having high-grade noninvasive urothelial cell carcinoma of the bladder. He presents now for surveillance cystoscopy. He is also been found to have a dysplastic colonic polyp which was too large to remove during colonoscopy. He presents for hand-assisted laparoscopic bowel resection. I have been asked to place ureteral stents in preparation for the bowel surgery. Findings: No recurrent tumor Procedure Description: The patient was brought to the operating room on 05/09/2020. After successful induction of general anesthesia and placement of an intrathecal catheter, he was placed in the dorsal lithotomy position. His genitalia is and draped. 2% Xylocaine jelly was instilled into the urethra to act as a local anesthetic. A 22 Nauruan rigid cystoscope was passed through the urethra into the bladder. The urethra and bladder were inspected with the 30 degree lens. The pendulous, bulbous and membranous urethra was all appeared normal with no strictures. The prostatic urethra showed no papillary or nodular lesions. There was no significant median lobe present although there was some lateral lobe enlargement. The remainder the bladder was inspected using both a 30 and a 70 degree lens. There was a scar from his prior resection. The mucosa around the scar was a bit more erythematous than the scar itself, but no papillary or nodular lesions were seen. Both ureteral orifice ease were identified. No blood was seen coming from either side. Each orifice was cannulated with a lighted stent. The stents were advanced until resistance was met. The cystoscope was then removed. The stents were withdrawn until the blue marker on the stent was seen at the urethral meatus. The stents were then taped to the anterior aspect of the patient's thigh. The stents were hooked to a light source. A 16 Nauruan Romero catheter was then passed through the urethra into the bladder. The catheter balloon was inflated with 10 cc of sterile water. The catheter gravity drainage. Based on today's examination, there is no evidence of recurrent tumor. The patient remained in the operating room for his bowel surgery to be completed by our general surgery providers.
[2020-05-09] MEDS: Lidocaine 2% Jelly 6 ML SYR ×2 (10:30→11:06)
[2020-05-09] MEDS: Lidocaine 1% Multi-Dose 50 ML VIAL (11:02)
--- NOTE | 2020-05-09 12:30 | BOWEL_PTH ---
PATIENT: Eugene Rueda LOC: U#:[id number] AGE/SX: 69/M ROOM: 207 RE05/09/[address]: Fatoumata Henderson MD : 1950 BED: A DIS: 05/11/2020 SPEC #: [id number] RECD: 05/09/20 16:54 STATUS: CORNEL REQ #: [id number] TAYLOR: 05/09/20 12:[address]: Tamir Osuna DEPT: Surgical Specimen RECD BY: Bronwyn Aviles ENTERED: 05/09/20 16:55 SP TYPE: Bowel OTHR DR: Dominic Restrepo MD Tissues: 1 - BOWEL RESECTION(OTHER) Procedures: IMMUNOPEROXIDASE STAIN GROSS AND MICRO LEVEL 5 Comments: [id number]
[2020-05-09] MEDS: Insulin REGULAR-Human 100 UNITS/ML UNIT 6 UNITS SC (15:03)
[2020-05-09] MEDS: Insulin Aspart 300 UNITS/3 ML PEN SC (16:48)
[2020-05-09] MEDS: dilTIAZem 25 MG/5 ML VIAL 10 MG IVP (17:10)
[2020-05-09 18:04] LABS: Anion Gap 9.8 mmol/L (3-11); BUN 14 mg/dL (7-18); CO2 22.2 mmol/L (21.0-32.0); CREATININE 1.33 mg/dL (0.70-1.30); Calcium 8.3 mg/dL (8.5-10.1); Chloride 103 mmol/L (98-107); Estimated GFR 53.16 (mL/min/1.73m2); Glucose 306 mg/dL (74-106); Magnesium 1.6 mg/dL (1.8-2.4); Potassium 3.9 mmol/L (3.5-5.1); Sodium 135 mmol/L (136-145)
[2020-05-09] MEDS: Lovastatin 20 MG TAB PO (20:24)
--- NOTE | 2020-05-09 20:37 | MCONE_ITS ---
Date of service: 05/09/20 Time of Service: 16:49 Assessment and Plan Assessment and plan (1) Essential hypertension: Status: Acute Assessment and plan: Cont lisinopril and Diltiazem. Monitor (2) Dysplastic colon polyp: Status: Acute Assessment and plan: s/p partial resection of sigmoid colon. (3) Atrial fibrillation: Status: Acute Assessment and plan: Rapid ventricular rate. On apixiban for AC, Diltiazem for rate control at home AC was held for surgery. He had held his diltiazem for 2 days prior to surgery rather the recommendation by surgeon to hold his Lisinopril. As a consequence his ventricular rate was elevated in the low 100's to 130's. He was given his home dose of oral Diltiazem prior to surgery and subsequently received IV Lopressor and another 30 mg of immediate release Diltiazem. PRN 10 mg IV Diltiazem Q6H for sustained ventricular HR of 110 or greater. Continue home dose of Diltiazem 240mg daily starting in AM K is normal Mg is low; IV and oral replacement initiated. Monitor. (4) Diabetes mellitus: Status: Acute Assessment and plan: On Farxiga and metformin at home; being held. SS insulin. ACHS monitoring. History of Present Illness History of Present Illness Chief Complaint: afib with RVR Narrative: This is a 69 yo male with a PMH of Afib, DM2, HTN, Urothelial carcinoma. He is now s/p partial sigmoid resection for removal of dysplastic colon polyp. Hospitalist consulted for management of Afib, now with RVR. Review of Systems Narrative: Currently drowsy. Inconsistently answers questions. Unobtainable due to (Unable to obtain reliable ROS d/t post-op state of drowsiness/lethargy.) [facility] Medical History Anxiety (Inactive 08/10/08) Asbestosis (Inactive 08/10/08) Asthma (Inactive 07/08/12) Atopic conjunctivitis (Inactive 10/22/13) Atrial fibrillation (Acute) Benign prostatic hyperplasia (Inactive 02/25/13) Bladder cancer (Acute) Carpal tunnel syndrome (Inactive) Chronic anticoagulation Chronic venous stasis (Resolved) Depressive disorder (Inactive 02/25/13) Diabetes mellitus (Acute 02/25/13) Essential hypertension (Acute 06/24/13) Frequency of micturition (Inactive 01/03/16) Glaucoma (Inactive 10/22/13) B/L Gross hematuria (Inactive) Hyperlipidemia (Inactive 02/25/13) Hypermetropia (Inactive 10/22/13) Hypogonadism (Inactive) Idiopathic peripheral neuropathy (Inactive) Low back pain (Acute 08/10/08) Noncompliance (Resolved) Nuclear senile cataract (Inactive 10/22/13) Obesity (Inactive 08/10/08) Aviva-en-y 02/2014 Obstructive sleep apnea syndrome (Inactive 08/10/08) cpap Olecranon bursitis (Inactive) Osteoarthritis (Inactive 08/10/08) BILATERAL KNEE replacements Peptic reflux disease (Inactive 08/10/08) Peripheral neuralgia (Inactive) Presbyopia (Inactive 10/22/13) Pterygium (Inactive 08/10/08) LEFT EYE Regular astigmatism (Inactive 10/22/13) Sensorineural hearing loss, bilateral (Inactive 09/05/17) Tubular adenoma (Inactive) Tubular and tubulovillous adenoma 2011 --suggested repeat 2017 Umbilical hernia (Resolved 08/18/12) Urgency of urination (Inactive 01/03/16) Urinary tract infection (Inactive) Urothelial carcinoma (Acute) Varicose veins of lower extremity (Inactive 08/10/08) Venous insufficiency (chronic) (peripheral) (Acute) Surgical History Cholecystectomy (02/20/18) 02/02/20: Pt denies. -BR History of transurethral destruction of bladder lesion (Acute) Ronnell Fundoplication Repair of umbilical hernia Laparoscopic Aviva-en-y surgery for weight loss S/P colonoscopy (Acute) -2011- tubular and tubulovillous polyps Henderson- 2019- sessile serrated with low grade dysplacia, tubullovillous with high grade dysplacia and tubular adenomas Status post abdominoplasty (Inactive 05/23/16) Status post tonsillectomy (Inactive) Status post total knee replacement (Inactive) B/L Vasectomy Family History Mother Cancer Father Heart disease Sister Cancer Sister No problems noted. Brother No problems noted. Brother No problems noted. Brother No problems noted. Son No problems noted. Son No problems noted. Son No problems noted. Social History Smoking/Tobacco Use Status: Never Second Hand Exposure: Yes Alcohol Intake: current Alcohol Intake frequency: holidays/special occasions only Drug use: Never Substance use type: does not use Caregiver/Support person: No Household members: other Details: son Housing: apartment Communication Needs: None Do you need help understanding health information?: Never Pets and animals: No Do you think of yourself as: straight/heterosexual Current gender identity: male What is your relationship status?: How often do you talk on the phone with friends or family?: once per week How often do you get together with friends or relatives?: decline to answer How often do you attend uatsdin or anglican services?: decline to answer Do you belong to any clubs or organized social groups?: no Panel score (0-1 are the most socially isolated patients): 0 What type of physical activity do you participate in: walking Duration: 15-30 minutes/day Frequency: 1-2 times per week Velia/Jain: Syn[employer] Special velia needs: No Seatbelt use: always Helmet use: No Drive intox or ride w/intox emergency medical technician/driver: No Do you feel safe at home: Yes Do you feel safe in your relationship?: Yes Exam Narrative Exam Narrative: Lying in bed. Mildly restless. Eyes Sclera: sclerae normal Pupils: PERRL Resp Effort & Inspection: normal respiratory effort Auscultation: bronchial breath sounds Cardio Jugular venous pressure: no JVD Rate: tachycardic Rhythm: abnormal rhythm GI Inspection: obesity Palpation: soft Auscultation: normal bowel sounds Skin Lesions: other (lower abd surgical site with bandage in place.) Rashes: no rashes Extrem General: normal to inspection and no pedal edema Results Last Vital Signs Temp 37.5 C 05/09/20 20:32 Pulse 97 H 05/09/20 20:32 Resp 18 05/09/20 20:32 BP 138/88 05/09/20 20:32 Pulse Ox 95 05/09/20 20:32 Labs Result diagrams: 05/09/20 17:49 Labs: Laboratory Results - last 24 hr 05/09/20 05/09/20 17:49 17:49 Sodium 135 L Potassium 3.9 Chloride 103 Carbon Dioxide 22.2 Anion Gap 9.8 BUN 14 Creatinine 1.33 H Estimated GFR/1.73 m2 53.16 Glucose 306 H Calcium 8.3 L Magnesium 1.6 L
[2020-05-09] MEDS: Magnesium Oxide 400 MG TAB PO (21:07)
[2020-05-09] MEDS: MAGNESIUM SULFATE 1 GM/100 ML BAG IVPB (21:08)
[2020-05-10] VITALS (17 sets, daily range): BP systolic 97–147; BP diastolic 63–91; PULSE 88–140; RESP 16–20; TEMP 36.5–37.3; O2SAT 94–98
[2020-05-10] MEDS: Lactated Ringers 1,000 ML 80 ML IV (05:21)
--- NOTE | 2020-05-10 05:38 | PGE_ITS ---
Date of Service Date of service: 05/10/20 Time of Service: 06:05 Assessment and Plan Assessment and plan (1) Dysplastic colon polyp: Status: Acute Assessment and plan: A\\ Mr. Rueda is POD#1 s/p partial sigmoid colectomy for a tubullovillous adenoma with high grade dysplacia. He is doing well. He is tolerating clears. Pain is controlled. P\\ 1. continue with ambulation 2. Advance diet as tolerated to soft, low fiber 3. Pain control with Toradol, tylenol and oxycodon. 4. Remove thornton (2) Diabetes mellitus: Status: Acute Assessment and plan: P\\ Continue on sliding scale until he is eating soft food and then will restart his home medications Qualifiers: Diabetes mellitus complication status: without complication Diabetes mellitus senior care insulin use: with exterminator use Diabetes mellitus type: type 2 Qualified Code(s): E11.9 - Type 2 diabetes mellitus without complications; Z79.4 - long term care social worker (current) use of insulin (3) Atrial fibrillation: Status: Acute Assessment and plan: P\\ Restart his home medications today. Appreciate Hospitalist consult and assistance with treatment of the Afib Qualifiers: Atrial fibrillation type: unspecified Qualified Code(s): I48.91 - Unspecified atrial fibrillation (4) Urothelial carcinoma: Status: Acute Assessment and plan: s/p cystoscopy by Dr. Osuna. No recurrence of his tumor identified (5) Essential hypertension: Status: Acute Assessment and plan: Continue home medications (6) Obstructive sleep apnea syndrome: Status: Acute Assessment and plan: Continue with his Home CPAP at night Subjective Subjective Interval history since last seen: Mr. Rueda is doing well. He didn't sleep much last night. He had a liquid BM at 3am and has been passing a lot of gas. He is hungry. His pain is well controlled. Exam Const General: cooperative, comfortable and no acute distress Orientation: alert and oriented x3 Resp Effort & Inspection: normal respiratory effort Auscultation: clear to auscultation bilaterally Cardio Rate: regular rate Rhythm: regular rhythm Heart Sounds: no gallops, no murmurs and no rubs GI Inspection: distended and incision (dressings intact) Palpation: soft and tender (appropriatly tender to palpation around the incisions) with no rebound tenderness Auscultation: normal bowel sounds Objective Objective Clinical Data: Abnormal lab results 05/09/20 05/09/20 Range/Units 17:49 17:49 Sodium 135 L (136-145) mmol/L Creatinine 1.33 H (0.70-1.30) mg/dL Glucose 306 H (74-106) mg/dL Calcium 8.3 L (8.5-10.1) mg/dL Magnesium 1.6 L (1.8-2.4) mg/dL Vital Signs Temperature 99.1 F 05/10/20 03:09 Temperature Source Tympanic 05/09/20 22:56 Pulse 100 H 05/10/20 04:45 Pulse Rhythm Irregular 05/10/20 04:47 Respiratory Rate 17 05/10/20 04:45 Respiratory Effort Non-Labored 05/10/20 04:47 Respiratory Depth Normal 05/10/20 04:47 Respiratory Pattern Normal 05/10/20 04:47 Blood Pressure 147/91 H 05/10/20 03:09 Pulse Oximetry 98 05/10/20 04:45 Respiratory End-tidal CO2 27 05/09/20 15:27 Oxygen Delivery Method Room Air 05/10/20 04:45 Oxygen Flow Rate 0 05/10/20 04:45 Fraction of Inspired Oxygen (FIO2) 21 05/10/20 00:03 Pain Level 0 05/10/20 03:09 Intake & Output 05/09/20 05/09/20 05/10/20 11:59 23:59 11:59 Intake Total 100 / 2350 2250 / 2350 Output Total 1350 / 1350 800 / 800 Balance 100 / 1000 900 / 1000 -800 / -800 Weight 225 lb 1.471 oz Intake: IV 100 / 2100 2000 / 2100 Oral 250 / 250 Output: Urine 1100 / 1100 800 / 800 Estimated Blood Loss 250 / 250 Other: Urine Color Yellow Light Ligia Urine Appearance Clear Sediment Stool Size Large Stool Characteristics Liquid Brown Emesis Description None Laboratory Results Sodium 135 mmol/L (136-145) L 05/09/20 17:49 Potassium 3.9 mmol/L (3.5-5.1) 05/09/20 17:49 Chloride 103 mmol/L (98-107) 05/09/20 17:49 Carbon Dioxide 22.2 mmol/L (21.0-32.0) 05/09/20 17:49 Anion Gap 9.8 mmol/L (3-11) 05/09/20 17:49 BUN 14 mg/dL (7-18) 05/09/20 17:49 Creatinine 1.33 mg/dL (0.70-1.30) H 05/09/20 17:49 Estimated GFR/1.73 m2 53.16 (mL/min/1.73m2) 05/09/20 17:49 Glucose 306 mg/dL (74-106) H 05/09/20 17:49 Calcium 8.3 mg/dL (8.5-10.1) L 05/09/20 17:49 Magnesium 1.6 mg/dL (1.8-2.4) L 05/09/20 17:49
[2020-05-10] MEDS: Pantoprazole 40 MG VIAL IVP (06:06)
[2020-05-10] MEDS: Normal Saline Flush 10 ML SYR IVP (06:07)
[2020-05-10 06:46] LABS: Abs Immature Grans 0.07 10^3/uL (0.0-0.06); Absolute Basophil Count 0.02 10^3/uL (0.0-0.2); Absolute Lymphocyte Count 0.65 10^3/uL (1.2-3.4); Absolute Monocyte Count 1.38 10^3/uL (0.1-0.8); Basophils % 0.2; HCT 38.4 % (40.0-50.0); HGB 12.7 g/dL (13.5-17.5); Immature Grans % 0.6; Lymphocytes % 5.2; MCH 29.1 pg (27.0-33.0); MCHC 33.1 % (32.0-36.0); MCV 88.1 fL (80-95); MPV 9.2 fL (8.0-11.0); Monocytes % 11.1; Neutrophils % 82.9; Platelet Count 206 10^3/uL (130-400); RBC 4.36 10^6/uL (4.36-5.78); RDW 14.3 % (11.8-14.1); RDW-SD 45.8 fL; WBC 12.44 10^3/uL (4.4-10.8)
[2020-05-10 06:49] LABS: Absolute Neutrophil Count 10.31 10^3/uL (1.2-6.7)
[2020-05-10 07:02] LABS: Anion Gap 11.9 mmol/L (3-11); BUN 18 mg/dL (7-18); CO2 23.1 mmol/L (21.0-32.0); CREATININE 1.32 mg/dL (0.70-1.30); Calcium 8.4 mg/dL (8.5-10.1); Chloride 104 mmol/L (98-107); Estimated GFR 53.62 (mL/min/1.73m2); Glucose 225 mg/dL (74-106); Magnesium 1.9 mg/dL (1.8-2.4); Potassium 3.5 mmol/L (3.5-5.1); Sodium 139 mmol/L (136-145)
[2020-05-10] MEDS: Insulin Aspart 300 UNITS/3 ML PEN SC ×3 (08:28→16:53)
[2020-05-10] MEDS: buPROPion-XL 150 MG TABCR PO (08:28)
[2020-05-10] MEDS: Enoxaparin 40 MG/0.4 ML SYR SC (08:28)
[2020-05-10] MEDS: Pantoprazole 40 MG TABCR PO (08:28)
[2020-05-10] MEDS: Terazosin 2 MG CAP PO (08:28)
[2020-05-10] MEDS: Ferrous Sulfate 325 MG TAB PO (08:29)
[2020-05-10] MEDS: dilTIAZem CD 120 MG CAPCR 240 MG PO (08:29)
[2020-05-10] MEDS: metFORMIN 500 MG TAB 1000 MG PO ×2 (08:29→16:53)
[2020-05-10] MEDS: Finasteride 5 MG TAB PO (08:30)
[2020-05-10] MEDS: Lisinopril 5 MG TAB PO (08:30)
--- NOTE | 2020-05-10 09:55 | INITIAL_ITS ---
- If Service Date Differs Date of service: 05/10/20 Time of Service: 09:55 Care Management Initial Assess REASON FOR HOSPITALIZATION:: s/p colectomy PAST MEDICAL HISTORY/PAST SURGICAL HISTORY:: Medical History. Anxiety (Inactive 08/10/08). Asbestosis (Inactive 08/10/08). Asthma (Inactive 07/08/12). Atopic conjunctivitis (Inactive 10/22/13). Atrial fibrillation (Resolved). Benign prostatic hyperplasia (Inactive 02/25/13). Bladder cancer (Acute). Carpal tunnel syndrome (Inactive). Chronic anticoagulation. Chronic venous stasis (Resolved). Depressive disorder (Inactive 02/25/13). Diabetes mellitus (Inactive 02/25/13). Essential hypertension (Acute 06/24/13). Frequency of micturition (Inactive 01/03/16). Glaucoma (Inactive 10/22/13). B/L. Gross hematuria (Inactive). Hyperlipidemia (Inactive 02/25/13). Hypermetropia (Inactive 10/22/13). Hypogonadism (Inactive). Idiopathic peripheral neuropathy (Inactive). Low back pain (Acute 08/10/08). Noncompliance (Resolved). Nuclear senile cataract (Inactive 10/22/13). Obesity (Inactive 08/10/08). Aviva-en-y 02/2014. Obstructive sleep apnea syndrome (Inactive 08/10/08). cpap. Olecranon bursitis (Inactive). Osteoarthritis (Inactive 08/10/08). BILATERAL KNEE replacements. Peptic reflux disease (Inactive 08/10/08). Peripheral neuralgia (Inactive). Presbyopia (Inactive 10/22/13). Pterygium (Inactive 08/10/08). LEFT EYE. Regular astigmatism (Inactive 10/22/13). Sensorineural hearing loss, bilateral (Inactive 09/05/17). Tubular adenoma (Inactive). Tubular and tubulovillous adenoma 2011. --suggested repeat 2017. Umbilical hernia (Resolved 08/18/12). Urgency of urination (Inactive 01/03/16). Urinary tract infection (Inactive). Urothelial carcinoma (Acute). Varicose veins of lower extremity (Inactive 08/10/08). Venous insufficiency (chronic) (peripheral) (Ac [place]). Surgical History. Cholecystectomy (02/20/18). 02/02/20: Pt denies. -BR. History of transurethral destruction of bladder lesion (Acute). Ronnell Fundoplication. Repair of umbilical hernia. Laparoscopic. Aviva-en-y surgery. for weight loss. S/P colonoscopy (Acute). Haddad-2011- tubular and tubulovillous polyps. Henderson- 2019- sessile serrated with low grade dysplacia, tubullovillous with high grade dysplacia and tubular adenomas. Status post abdominoplasty (Inactive 05/23/16). Status post tonsillectomy (Inactive). Status post total knee replacement (Inactive). B/L. Vasectomy PREVIOUS FUNCTIONAL STATUS/SOCIAL/FAMILY SUPPORTS:: Eugene lives in [place] with his son. 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 He is unsure if he will be going back to work this fall due to Covid 19 possibly keeping schools closed. He is independent at baseline. CURRENT FUNCTIONAL STATUS:: Eugene was sitting up in his chair when CM met with him. He stated that he is feeling well post surgically. His diet was advanced today and he reported that he may be ready for discharge tomorrow, per MD. He stated that he will be happy to return home. CM will continue to follow. ADVANCE DIRECTIVES:: None on file. Has patient been provided with info about the portal/API?: No Did the patient sign up for the portal?: No CODE STATUS:: Full Code INSURANCE COVERAGE / FINANCIAL ISSUES:: BCBS/ MCR Replacement- [facility] CURRENT HOME/COMMUNITY SERVICES/EQUIPMENT:: No current equipment or services in the community. PRIMARY CARE PHYSICIAN:: Dominic Restrepo POTENTIAL DISCHARGE NEEDS:: Evaluations for further needs, follow up appointments. PATIENT/FAMILY EDUCATION NEEDS:: Review discharge instructions regarding activity levels and medications, discussion of self care needs including ask me three. ANTICIPATED BARRIERS TO DISCHARGE:: None identified at this time. TRANSPORTATION:: Via private vehicle by family. PLAN:: Anticipate Eugene will return home with no additional services once medically cleared. His son will drive him home via private vehicle. He will follow up with his PCP and discharge plan of care. CM will continue to follow.
[2020-05-10] MEDS: dilTIAZem 25 MG/5 ML VIAL 10 MG IVP (10:35)
--- NOTE | 2020-05-10 10:44 | PGE_ITS ---
Date of Service Date of service: 05/10/20 Time of Service: 10:44 Assessment and Plan Assessment and plan (1) Essential hypertension: Status: Acute Assessment and plan: STable, Cont lisinopril and Diltiazem. Monitor (2) Dysplastic colon polyp: Status: Acute Assessment and plan: s/p partial resection of sigmoid colon. per surgery (3) Atrial fibrillation: Status: Acute Assessment and plan: Rapid ventricular rate improved now back on diltiazem. still having breakthrough rates in the 130's with ambulation. he has been asymptomatic. On apixiban for anticoagulation which has been on hold, will resume as soon as surgery clears. he is currently on lovenox for DVT prophylaxis. will give 500 cc fluid bolus and 10 mg IV cardizem. continue to monitor. K is low normal, will replete Mg improved after IV and oral replacement initiated. Monitor. Qualifiers: Atrial fibrillation type: unspecified Qualified Code(s): I48.91 - Unspecified atrial fibrillation (4) Diabetes mellitus: Status: Acute Assessment and plan: On Farxiga and metformin at home; being held. SS insulin. ACHS monitoring. Qualifiers: Diabetes mellitus type: type 2 Diabetes mellitus rat exterminator insulin use: with rat exterminator use Diabetes mellitus complication status: without complication Qualified Code(s): E11.9 - Type 2 diabetes mellitus without complications; Z79.4 - ocean transportation intermediary (current) use of insulin Subjective Subjective Patient reports: no new complaints and feels better Exam Eyes Sclera: sclerae normal Pupils: PERRL Resp Effort & Inspection: normal respiratory effort Cardio Jugular venous pressure: no JVD Rate: tachycardic Rhythm: abnormal rhythm GI Inspection: obesity Palpation: soft Auscultation: normal bowel sounds Skin Lesions: other (lower abd surgical site with bandage in place.) Rashes: no rashes Extrem General: normal to inspection and no pedal edema Objective Objective Clinical Data: Abnormal lab results 05/09/20 05/09/20 05/10/20 Range/Units 17:49 17:49 06:30 WBC (4.4-10.8) 10^3/uL Hgb (13.5-17.5) g/dL Hct (40.0-50.0) % RDW (11.8-14.1) % Absolute Neutrophils (1.2-6.7) 10^3/uL Absolute Lymphocytes (1.2-3.4) 10^3/uL Absolute Monocytes (0.1-0.8) 10^3/uL Sodium 135 L (136-145) mmol/L Anion Gap 11.9 H (3-11) mmol/L Creatinine 1.33 H 1.32 H (0.70-1.30) mg/dL Glucose 306 H 225 H D (74-106) mg/dL Calcium 8.3 L 8.4 L (8.5-10.1) mg/dL Magnesium 1.6 L (1.8-2.4) mg/dL 05/10/20 Range/Units 06:30 WBC 12.44 H (4.4-10.8) 10^3/uL Hgb 12.7 L (13.5-17.5) g/dL Hct 38.4 L (40.0-50.0) % RDW 14.3 H (11.8-14.1) % Absolute Neutrophils 10.31 H (1.2-6.7) 10^3/uL Absolute Lymphocytes 0.65 L (1.2-3.4) 10^3/uL Absolute Monocytes 1.38 H (0.1-0.8) 10^3/uL Sodium (136-145) mmol/L Anion Gap (3-11) mmol/L Creatinine (0.70-1.30) mg/dL Glucose (74-106) mg/dL Calcium (8.5-10.1) mg/dL Magnesium (1.8-2.4) mg/dL Vital Signs Temperature 36.9 C 05/10/20 07:16 Temperature Source Tympanic 05/10/20 07:16 Pulse 88 05/10/20 10:41 Pulse Rhythm Irregular 05/10/20 08:37 Respiratory Rate 20 05/10/20 08:34 Respiratory Effort Non-Labored 05/10/20 08:37 Respiratory Depth Normal 05/10/20 08:37 Respiratory Pattern Normal 05/10/20 08:37 Blood Pressure 114/68 05/10/20 10:41 Pulse Oximetry 96 05/10/20 08:22 Respiratory End-tidal CO2 27 05/09/20 15:27 Oxygen Delivery Method Room Air 05/10/20 08:22 Oxygen Flow Rate 0 05/10/20 08:22 Fraction of Inspired Oxygen (FIO2) 21 05/10/20 00:03 Pain Level 1 05/10/20 08:34 Intake & Output 05/09/20 05/09/20 05/10/20 11:59 23:59 11:59 Intake Total 100 / 2350 2250 / 2350 835.333 / 835.333 Output Total 1350 / 1350 1100 / 1100 Balance 100 / 1000 900 / 1000 -264.667 / -264.667 Weight 102.1 kg Intake: IV 100 / 2100 2000 / 2100 105.333 / 105.333 Oral 250 / 250 730 / 730 Output: Urine 1100 / 1100 1100 / 1100 Estimated Blood Loss 250 / 250 Other: Urine Color Yellow Light Ligia Urine Appearance Clear Clear Stool Size Large Stool Characteristics Liquid Brown Emesis Description None Laboratory Results WBC 12.44 10^3/uL (4.4-10.8) H 05/10/20 06:30 RBC 4.36 10^6/uL (4.36-5.78) 05/10/20 06:30 Hgb 12.7 g/dL (13.5-17.5) L 05/10/20 06:30 Hct 38.4 % (40.0-50.0) L 05/10/20 06:30 MCV 88.1 fL (80-95) 05/10/20 06:30 MCH 29.1 pg (27.0-33.0) 05/10/20 06:30 MCHC 33.1 % (32.0-36.0) 05/10/20 06:30 RDW 14.3 % (11.8-14.1) H 05/10/20 06:30 Plt Count 206 10^3/uL (130-400) 05/10/20 06:30 MPV 9.2 fL (8.0-11.0) 05/10/20 06:30 Immature Gran % 0.6 05/10/20 06:30 Neutrophils % 82.9 05/10/20 06:30 Lymphocytes % 5.2 05/10/20 06:30 Monocytes % 11.1 05/10/20 06:30 Eosinophils % 0.0 05/10/20 06:30 Basophils % 0.2 05/10/20 06:30 Absolute Neutrophils 10.31 10^3/uL (1.2-6.7) H 05/10/20 06:30 Absolute Lymphocytes 0.65 10^3/uL (1.2-3.4) L 05/10/20 06:30 Absolute Monocytes 1.38 10^3/uL (0.1-0.8) H 05/10/20 06:30 Absolute Eosinophils 0.00 10^3/uL (0.0-0.7) 05/10/20 06:30 Absolute Basophils 0.02 10^3/uL (0.0-0.2) 05/10/20 06:30 Sodium 139 mmol/L (136-145) 05/10/20 06:30 Potassium 3.5 mmol/L (3.5-5.1) 05/10/20 06:30 Chloride 104 mmol/L (98-107) 05/10/20 06:30 Carbon Dioxide 23.1 mmol/L (21.0-32.0) 05/10/20 06:30 Anion Gap 11.9 mmol/L (3-11) H 05/10/20 06:30 BUN 18 mg/dL (7-18) 05/10/20 06:30 Creatinine 1.32 mg/dL (0.70-1.30) H 05/10/20 06:30 Estimated GFR/1.73 m2 53.62 (mL/min/1.73m2) 05/10/20 06:30 Glucose 225 mg/dL (74-106) H D 05/10/20 06:30 Calcium 8.4 mg/dL (8.5-10.1) L 05/10/20 06:30 Magnesium 1.9 mg/dL (1.8-2.4) 05/10/20 06:30
[2020-05-10] MEDS: Normal Saline 1,000 ML 500 ML IV (10:55)
--- NOTE | 2020-05-10 10:58 | W.INDIABCONS ---
Date of service: 05/10/20 Time of Service: 10:59 Diabetes Inpatient Consult DESCRIPTION/ASSESSMENT: 69 year old male admitted with urothelial cancer s/p sigmoid colectomy with DM2, obesity. Met with Eugene today. He reports taking metformin 1000 mg BID, does not check his blood sugars at home. Food record indicates 2 meals daily, typically eats out for breakfast, then typical home cooked meal at dinner. Diet high in simple carbs. Recent A1C: 7.7%(04/29/20) indicates mildly elevated blood sugars with average blood sugars around 160-180 mg/dl. encouraged Eugene to check is blood sugars at least once daily and provide blood sugar log to next PCP visit. INTERVENTION: Provided education on DM including Hyper/hypoglycemia s/s with action plan for each scenario. Definition and types of CHO with examples, CHO counting, DASH diet materials, DM meal planning and label reading literature. Provided a blood sugar and food record chart and materials to reiterate CHO counting techniques. Reviewed desirable BG levels with patient with food choices and portions for optimal outcomes. Provided contact information for this RD and encouraged to call with any f/u questions r/t to DM self management. CDM from kitchen has been helping to count CHO's and achieve intake of ~65g/CHO per meal period. PLAN: Eugene to follow up with PCP after discharge with blood sugar log Eugene will reduce reliance on simple carbohydrates and follow well balanced meals for optimal glycemic control Eugene will follow up as needed in outpatient setting. Time Spent in Nutritional Counseling and Treatment: 10 min spent face to face
[2020-05-10] MEDS: Potassium Chloride 20 MEQ TABCR PO ×2 (11:33→20:35)
--- NOTE | 2020-05-10 11:42 | PHA.REVIEW ---
Pharmacy Admission Review - Admission Clinical Review (Last Updated 05/10/20 @ 05:48 by Fatoumata Henderson MD) Obstructive sleep apnea syndrome (Acute 08/10/08) Diabetes mellitus (Acute 02/25/13) Atrial fibrillation (Acute) Urothelial carcinoma (Acute) Essential hypertension (Acute 06/24/13) Dysplastic colon polyp (Acute) No Known Allergies Allergy (Verified 05/09/20 06:14) Height 5 ft 9 in Weight 102.1 kg - Renal Dosing Renal Dosing: BUN 18 mg/dL (7-18) 05/10/20 06:30 Creatinine 1.32 mg/dL (0.70-1.30) H 05/10/20 06:30 Medications needing adjustments: Reviewed (CrCl ~61.4 mL/min using adjusted BW, current meds okay) - Anticoagulation Anticoagulation: Hgb 12.7 g/dL (13.5-17.5) L 05/10/20 06:30 Hct 38.4 % (40.0-50.0) L 05/10/20 06:30 Plt Count 206 10^3/uL (130-400) 05/10/20 06:30 Creatinine 1.32 mg/dL (0.70-1.30) H 05/10/20 06:30 DVT Prohphylaxis: N/A Therapeutic Anticoagulation: Reviewed Medications: Apixaban - Opiate Usage Evaluate Pain Scale/Pains Meds: N/A - Relevant Labs Sodium 139 mmol/L (136-145) 05/10/20 06:30 Potassium 3.5 mmol/L (3.5-5.1) 05/10/20 06:30 Chloride 104 mmol/L (98-107) 05/10/20 06:30 Magnesium 1.9 mg/dL (1.8-2.4) 05/10/20 06:30 Electrolytes, C-Reactive P, ESR: Reviewed (WBC 12.44) - DM Control DM Control: Glucose 225 mg/dL (74-106) H D 05/10/20 06:30 Finger Stick Blood Glucose 218 Finger Stick Blood Glucose 218 Finger Stick Blood Glucose 202 Finger Stick Blood Glucose 202 Insulin Dosing: Reviewed (sliding scale aspart ordered, A1C 7.7 from 04/29/2020. Also has metformin and dapagliflozin ordered) - Heart Failure/[place] EF%, FRANCHESCA's, B-Blockers, Diuretics: N/A - BP Control BP Control: Blood Pressure 102/63 Blood Pressure 114/68 Blood Pressure 120/66 Blood Pressure 133/84 Blood Pressure 147/91 If elevated: N/A (HR 102) - Qtc Review If Elevated: N/A (No recent EKG labs) - IV to PO Switch IV Medications: Reviewed (IV ondansetron and diltiazem (has PO order diltiazem too, IV is PRN)) - Home Meds Home Med List reviewed: Reviewed (Separate admin of calcium/vit D from multivitamin and ferrous sulfate. Diltiazem may increase the serum concentration of lovastatin; do not exceed 20 mg lovastatin when used in combintation with diltiazem.) Relevent Home Meds Not ordered & why?: Vitamin B12, calcium carbonate and vitamin D, metronidazole (one time order) multivitamin, neomycin (one time order), fish oil, ascorbic acid - Current meds Current Medication Order Review: Reviewed - Comments Comments/Follow Ups: Monitor HR, WBC, glucose, K+, and Mag (was low but improved after IV and PO replacement). Watch for med changes
--- NOTE | 2020-05-10 14:45 | CHAPLAIN ---
Eugene was sitting up in his chair when I visited. He thanked me for stopping, but was not interested in further conversation.
[2020-05-10] MEDS: Lovastatin 20 MG TAB PO (20:35)
[2020-05-11 03:46] VITALS: BP 117/89; PULSE 102; RESP 18; TEMP 36.7; O2SAT 97
[2020-05-11 06:40] LABS: Abs Immature Grans 0.05 10^3/uL (0.0-0.06); Absolute Basophil Count 0.02 10^3/uL (0.0-0.2); Absolute Eosinophil Count 0.16 10^3/uL (0.0-0.7); Absolute Lymphocyte Count 0.84 10^3/uL (1.2-3.4); Absolute Monocyte Count 0.99 10^3/uL (0.1-0.8); Absolute Neutrophil Count 8.33 10^3/uL (1.2-6.7); Basophils % 0.2; Eosinophils % 1.5; HCT 38.3 % (40.0-50.0); HGB 12.2 g/dL (13.5-17.5); Immature Grans % 0.5; Lymphocytes % 8.1; MCH 29.2 pg (27.0-33.0); MCHC 31.9 % (32.0-36.0); MCV 91.6 fL (80-95); MPV 9.4 fL (8.0-11.0); Monocytes % 9.5; Neutrophils % 80.2; Nucleated RBC 0 %; Platelet Count 186 10^3/uL (130-400); RBC 4.18 10^6/uL (4.36-5.78); RDW 14.7 % (11.8-14.1); RDW-SD 49.4 fL; WBC 10.39 10^3/uL (4.4-10.8)
[2020-05-11 06:41] LABS: Anion Gap 11.5 mmol/L (3-11); BUN 30 mg/dL (7-18); CO2 21.5 mmol/L (21.0-32.0); CREATININE 1.38 mg/dL (0.70-1.30); Calcium 8.4 mg/dL (8.5-10.1); Chloride 105 mmol/L (98-107); Estimated GFR 50.94 (mL/min/1.73m2); Glucose 240 mg/dL (74-106); Potassium 3.4 mmol/L (3.5-5.1); Sodium 138 mmol/L (136-145)
--- NOTE | 2020-05-11 07:13 | W.PM.PROGNOT ---
Date of Service Date of service: 05/11/20 Time of Service: 07:13 Assessment and Plan Assessment and plan (1) Dysplastic colon polyp: Status: Acute Assessment and plan: A// Tolerating low fiber diet. (+) Flatus Mild abdominal pain. Ambulating with nursing staff using 2WW. Encouraged deep breathing and use of the incentive spirometer. P// Possible D/C home later today. Subjective Subjective Interval history since last seen: Sleeping well throughout the night. Reports mild abdominal soreness. Denies any difficulty with urination. (+) Flatus. Exam Const General: cooperative, healthy appearing and comfortable Orientation: alert and oriented x3 Resp Effort & Inspection: normal respiratory effort, no audible wheezes and no cough GI Palpation: soft, no guarding and nontender Auscultation: normal bowel sounds Objective Objective Clinical Data: Abnormal lab results 05/11/20 05/11/20 Range/Units 06:15 06:15 RBC 4.18 L (4.36-5.78) 10^6/uL Hgb 12.2 L (13.5-17.5) g/dL Hct 38.3 L (40.0-50.0) % MCHC 31.9 L (32.0-36.0) % RDW 14.7 H (11.8-14.1) % Absolute Neutrophils 8.33 H (1.2-6.7) 10^3/uL Absolute Lymphocytes 0.84 L (1.2-3.4) 10^3/uL Absolute Monocytes 0.99 H (0.1-0.8) 10^3/uL Potassium 3.4 L (3.5-5.1) mmol/L Anion Gap 11.5 H (3-11) mmol/L BUN 30 H D (7-18) mg/dL Creatinine 1.38 H (0.70-1.30) mg/dL Glucose 240 H (74-106) mg/dL Calcium 8.4 L (8.5-10.1) mg/dL Vital Signs Temperature 36.7 C 05/11/20 03:46 Temperature Source Tympanic 05/11/20 03:46 Pulse 102 H 05/11/20 03:46 Pulse Rhythm Irregular 05/11/20 03:31 Respiratory Rate 18 05/11/20 03:46 Respiratory Effort Non-Labored 05/11/20 03:31 Respiratory Depth Normal 05/11/20 03:31 Respiratory Pattern Normal 05/11/20 03:31 Blood Pressure 117/89 05/11/20 03:46 Pulse Oximetry 97 05/11/20 03:46 Respiratory End-tidal CO2 27 05/09/20 15:27 Oxygen Delivery Method Room Air 05/11/20 03:46 Oxygen Flow Rate 0 05/11/20 03:46 Fraction of Inspired Oxygen (FIO2) 21 05/10/20 00:03 Pain Level 3 05/11/20 03:46 Comment 05/10/20 19:13 Intake & Output 05/10/20 05/11/20 05/11/20 18:59 06:59 18:59 Intake Total 1470 / 1590 120 / 1590 Output Total 400 / 400 Balance 1470 / 1190 -280 / 1190 Intake: IV 500 / 500 Oral 970 / 1090 120 / 1090 Output: Urine 400 / 400 Other: Urine Color Yellow Straw Urine Appearance Clear Clear Stool Size Moderate Stool Characteristics Soft Formed Voiding Methods Toilet Urinal Laboratory Results WBC 10.39 10^3/uL (4.4-10.8) 05/11/20 06:15 RBC 4.18 10^6/uL (4.36-5.78) L 05/11/20 06:15 Hgb 12.2 g/dL (13.5-17.5) L 05/11/20 06:15 Hct 38.3 % (40.0-50.0) L 05/11/20 06:15 MCV 91.6 fL (80-95) D 05/11/20 06:15 MCH 29.2 pg (27.0-33.0) 05/11/20 06:15 MCHC 31.9 % (32.0-36.0) L 05/11/20 06:15 RDW 14.7 % (11.8-14.1) H 05/11/20 06:15 Plt Count 186 10^3/uL (130-400) 05/11/20 06:15 MPV 9.4 fL (8.0-11.0) 05/11/20 06:15 Immature Gran % 0.5 05/11/20 06:15 Neutrophils % 80.2 05/11/20 06:15 Lymphocytes % 8.1 05/11/20 06:15 Monocytes % 9.5 05/11/20 06:15 Eosinophils % 1.5 05/11/20 06:15 Basophils % 0.2 05/11/20 06:15 Absolute Neutrophils 8.33 10^3/uL (1.2-6.7) H 05/11/20 06:15 Absolute Lymphocytes 0.84 10^3/uL (1.2-3.4) L 05/11/20 06:15 Absolute Monocytes 0.99 10^3/uL (0.1-0.8) H 05/11/20 06:15 Absolute Eosinophils 0.16 10^3/uL (0.0-0.7) 05/11/20 06:15 Absolute Basophils 0.02 10^3/uL (0.0-0.2) 05/11/20 06:15 Sodium 138 mmol/L (136-145) 05/11/20 06:15 Potassium 3.4 mmol/L (3.5-5.1) L 05/11/20 06:15 Chloride 105 mmol/L (98-107) 05/11/20 06:15 Carbon Dioxide 21.5 mmol/L (21.0-32.0) 05/11/20 06:15 Anion Gap 11.5 mmol/L (3-11) H 05/11/20 06:15 BUN 30 mg/dL (7-18) H D 05/11/20 06:15 Creatinine 1.38 mg/dL (0.70-1.30) H 05/11/20 06:15 Estimated GFR/1.73 m2 50.94 (mL/min/1.73m2) 05/11/20 06:15 Glucose 240 mg/dL (74-106) H 05/11/20 06:15 Calcium 8.4 mg/dL (8.5-10.1) L 05/11/20 06:15 Magnesium 1.9 mg/dL (1.8-2.4) 05/10/20 06:30
[2020-05-11 07:50] VITALS: BP 117/77; PULSE 75; RESP 20; TEMP 36; O2SAT 97
[2020-05-11 08:20] VITALS: O2SAT 97
[2020-05-11] MEDS: buPROPion-XL 150 MG TABCR PO (08:25)
[2020-05-11] MEDS: Pantoprazole 40 MG TABCR PO (08:25)
[2020-05-11] MEDS: dilTIAZem CD 300 MG CAPCR PO (08:25)
[2020-05-11] MEDS: metFORMIN 500 MG TAB 1000 MG PO ×2 (08:25→17:06)
[2020-05-11] MEDS: Terazosin 2 MG CAP PO (08:25)
[2020-05-11] MEDS: Apixaban 5 MG TAB PO (08:26)
[2020-05-11] MEDS: Lisinopril 5 MG TAB PO (08:26)
[2020-05-11] MEDS: Ferrous Sulfate 325 MG TAB PO (08:26)
[2020-05-11] MEDS: Finasteride 5 MG TAB PO (08:26)
[2020-05-11] MEDS: Insulin Aspart 300 UNITS/3 ML PEN SC ×3 (08:27→17:07)
[2020-05-11 11:28] VITALS: BP 102/62; PULSE 116; RESP 19; TEMP 36; O2SAT 98
[2020-05-11 12:05] VITALS: PULSE 112
--- NOTE | 2020-05-11 13:23 | PGE_ITS ---
Date of Service Date of service: 05/11/20 Time of Service: 13:23 Assessment and Plan Assessment and plan (1) Essential hypertension: Status: Acute Assessment and plan: STable, Cont lisinopril and Diltiazem. Monitor (2) Dysplastic colon polyp: Status: Acute Assessment and plan: s/p partial resection of sigmoid colon. per surgery (3) Atrial fibrillation: Status: Acute Assessment and plan: Rapid ventricular rate improved now back on diltiazem. still having breakthrough rates in the 130's with ambulation. he has been asymptomatic. will increase cardizem dose, continue monitoring and adjust as needed. On apixiban for anticoagulation which has been on hold, will resume as soon as surgery clears. he is currently on lovenox for DVT prophylaxis. K is low normal, will replete Mg improved after IV and oral replacement initiated. Monitor. Qualifiers: Atrial fibrillation type: unspecified Qualified Code(s): I48.91 - Unspecified atrial fibrillation (4) Diabetes mellitus: Status: Acute Assessment and plan: On Farxiga and metformin at home; being held. SS insulin. ACHS monitoring. Qualifiers: Diabetes mellitus complication status: without complication Diabetes mellitus skilled nursing insulin use: with regional intermodal truck driver use Diabetes mellitus type: type 2 Qualified Code(s): E11.9 - Type 2 diabetes mellitus without complications; Z79.4 - termite renewal inspector (current) use of insulin Subjective Subjective Patient reports: no new complaints, feels better, tolerating liquids well, tole rating a regular diet, voiding w/o difficulty and afebrile; denies shortness of breath Exam Eyes Sclera: sclerae normal Pupils: PERRL Resp Effort & Inspection: normal respiratory effort Cardio Jugular venous pressure: no JVD Rate: tachycardic Rhythm: abnormal rhythm GI Inspection: obesity Palpation: soft Auscultation: normal bowel sounds Skin Lesions: other (lower abd surgical site with bandage in place.) Rashes: no rashes Extrem General: normal to inspection and no pedal edema Objective Objective Clinical Data: Abnormal lab results 05/11/20 05/11/20 Range/Units 06:15 06:15 RBC 4.18 L (4.36-5.78) 10^6/uL Hgb 12.2 L (13.5-17.5) g/dL Hct 38.3 L (40.0-50.0) % MCHC 31.9 L (32.0-36.0) % RDW 14.7 H (11.8-14.1) % Absolute Neutrophils 8.33 H (1.2-6.7) 10^3/uL Absolute Lymphocytes 0.84 L (1.2-3.4) 10^3/uL Absolute Monocytes 0.99 H (0.1-0.8) 10^3/uL Potassium 3.4 L (3.5-5.1) mmol/L Anion Gap 11.5 H (3-11) mmol/L BUN 30 H D (7-18) mg/dL Creatinine 1.38 H (0.70-1.30) mg/dL Glucose 240 H (74-106) mg/dL Calcium 8.4 L (8.5-10.1) mg/dL Vital Signs Temperature 36 C L 05/11/20 11:28 Temperature Source Tympanic 05/11/20 11:28 Pulse 112 H 05/11/20 12:05 Pulse Rhythm Irregular 05/11/20 08:20 Respiratory Rate 19 05/11/20 11:28 Respiratory Effort Non-Labored 05/11/20 08:20 Respiratory Depth Normal 05/11/20 08:20 Respiratory Pattern Normal 05/11/20 08:20 Blood Pressure 102/62 05/11/20 11:28 Pulse Oximetry 98 05/11/20 11:28 Respiratory End-tidal CO2 27 05/09/20 15:27 Oxygen Delivery Method Room Air 05/11/20 11:28 Oxygen Flow Rate 0 05/11/20 11:28 Fraction of Inspired Oxygen (FIO2) 21 05/10/20 00:03 Pain Level 0 05/11/20 11:28 Comment 05/10/20 19:13 Intake & Output 05/10/20 05/11/20 05/11/20 23:59 11:59 23:59 Intake Total 860 / 1695.333 240 / 240 Output Total 800 / 800 Balance 860 / 595.333 -800 / -560 240 / -560 Intake: IV 500 / 605.333 Oral 360 / 1090 240 / 240 Output: Urine 800 / 800 Other: Urine Color Yellow Straw Urine Appearance Clear Clear Stool Size Moderate Stool Characteristics Soft Formed Voiding Methods Toilet Urinal Laboratory Results WBC 10.39 10^3/uL (4.4-10.8) 08/05/20 06:15 RBC 4.18 10^6/uL (4.36-5.78) L 05/11/20 06:15 Hgb 12.2 g/dL (13.5-17.5) L 05/11/20 06:15 Hct 38.3 % (40.0-50.0) L 05/11/20 06:15 MCV 91.6 fL (80-95) D 05/11/20 06:15 MCH 29.2 pg (27.0-33.0) 05/11/20 06:15 MCHC 31.9 % (32.0-36.0) L 05/11/20 06:15 RDW 14.7 % (11.8-14.1) H 05/11/20 06:15 Plt Count 186 10^3/uL (130-400) 05/11/20 06:15 MPV 9.4 fL (8.0-11.0) 05/11/20 06:15 Immature Gran % 0.5 05/11/20 06:15 Neutrophils % 80.2 05/11/20 06:15 Lymphocytes % 8.1 05/11/20 06:15 Monocytes % 9.5 05/11/20 06:15 Eosinophils % 1.5 05/11/20 06:15 Basophils % 0.2 05/11/20 06:15 Absolute Neutrophils 8.33 10^3/uL (1.2-6.7) H 05/11/20 06:15 Absolute Lymphocytes 0.84 10^3/uL (1.2-3.4) L 05/11/20 06:15 Absolute Monocytes 0.99 10^3/uL (0.1-0.8) H 05/11/20 06:15 Absolute Eosinophils 0.16 10^3/uL (0.0-0.7) 05/11/20 06:15 Absolute Basophils 0.02 10^3/uL (0.0-0.2) 05/11/20 06:15 Sodium 138 mmol/L (136-145) 05/11/20 06:15 Potassium 3.4 mmol/L (3.5-5.1) L 05/11/20 06:15 Chloride 105 mmol/L (98-107) 08/05/20 06:15 Carbon Dioxide 21.5 mmol/L (21.0-32.0) 05/11/20 06:15 Anion Gap 11.5 mmol/L (3-11) H 05/11/20 06:15 BUN 30 mg/dL (7-18) H D 05/11/20 06:15 Creatinine 1.38 mg/dL (0.70-1.30) H 05/11/20 06:15 Estimated GFR/1.73 m2 50.94 (mL/min/1.73m2) 05/11/20 06:15 Glucose 240 mg/dL (74-106) H 05/11/20 06:15 Calcium 8.4 mg/dL (8.5-10.1) L 05/11/20 06:15 Magnesium 1.9 mg/dL (1.8-2.4) 05/10/20 06:30
[2020-05-11] MEDS: Potassium Chloride 20 MEQ TABCR 40 MEQ PO (15:28)
[2020-05-11 16:13] VITALS: BP 104/71; PULSE 56; RESP 16; TEMP 36.8; O2SAT 93
--- NOTE | 2020-05-11 16:29 | CMPROGNOTE_ITS ---
- If Service Date Differs Date of service: 05/11/20 Time of Service: 16:29 Care Management Progress Note S/O: Eugene was sitting up in his chair when CM met with him. He reported that he met with the provider this morning, but he was still unsure if he would be ready for discharge today. He stated that he was feeling well, and he would be comfortable going home today if that is the recommendation. He would also be agreeable to stay, if so indicated. CM will continue to follow. A: Eugene is a 69 year old male admitted to [facility] on 05/09/20 for Colectomy. P: Anticipate Eugene will return home when medically cleared. He will be driven home by family via private vehicle when ready. He will follow up with his PCP and discharge plan of care. CM will continue to follow and support discharge planning considerations.
--- NOTE | 2020-05-11 16:49 | DSE_ITS ---
Time of Service: 16:49 DS: Diagnosis Discharge Diagnosis (1) Essential hypertension: Status: Acute (2) Dysplastic colon polyp: Status: Acute (3) Atrial fibrillation: Status: Acute (4) Diabetes mellitus: Status: Acute (5) Obstructive sleep apnea syndrome: Status: Acute (6) High grade dysplasia in colonic adenoma: Status: Acute (7) Urothelial carcinoma: Status: Acute Discharge Plan Disposition Patient Disposition: HOME Condition: Good Discharge Details Reason For Visit: S/P COLECTOMY Admit Date/Time: 05/09/20 06:06 Admit Provider: Fatoumata Henderson Attending Provider: Fatoumata Henderson Primary Care Provider: Dominic Restrepo Hospital Course Hospital Course: see adddendum Home Meds and New Rx's Prescriptions: New hydrocodone-acetaminophen [[place]] 5-325 mg tablet 1 tab PO Q6H PRNQty: 7 RF: 0 Continued metformin [Glucophage] 1,000 mg tablet 1,000 mg PO BID Qty: 180 RF: 4 terazosin 2 mg capsule 2 mg PO DAILY Qty: 90 RF: 3 Eliquis 5 mg tablet 5 mg PO BID Qty: 60 RF: 12 Farxiga 10 mg tablet 10 mg PO DAILY Qty: 30 RF: 5 diltiazem HCl [Cardizem CD] 240 mg capsule,extended release 24hr 240 mg PO DAILY Qty: 90 RF: 3 finasteride 5 mg tablet 5 mg PO DAILY Qty: 90 RF: 3 lisinopril 5 mg tablet 5 mg PO DAILY Qty: 90 RF: 3 ondansetron HCl [Zofran] 8 mg tablet 8 mg PO ONCE Qty: 3 RF: 0 multivitamin [Daily Vitamin] 1 EACH tablet 2 ea PO DAILY RF: 0 cyanocobalamin (vitamin B-12) [Vitamin B-12] 500 MCG tablet 500 mcg PO DAILY RF: 0 calcium carbonate-vitamin D3 [Calcium 600 + D(3)] 1 EACH tablet 2 ea PO DAILY RF: 0 iron 159 mg (45 mg iron) tablet extended release 159 mg PO DAILY RF: 0 lovastatin 20 mg tablet 20 mg PO DAILY Qty: 90 RF: 3 bupropion HCl 150 mg tablet extended release 24 hr 150 mg PO DAILY 30 Days Qty: 30 RF: 11 Vitamin C 1,000 MG tablet extended release 1,000 mg PO DAILY RF: 0 omega-3 fatty acids [Fish Oil Concentrate] 1,000 mg Capsule 2,400 mg PO DAILY RF: 0 Discontinued metronidazole 500 mg tablet 500 mg PO ONCE Qty: 8 RF: 0 neomycin 500 mg tablet 500 mg PO ONCE Qty: 8 RF: 0 Shingrix Adjuvant Component-PF Suspension 0.5 ml IM DAILY Qty: 0.5 RF: 1 Discharge Instructions Additional Instructions: Keep an ice bag on the incision. 20 minutes on and 20 minutes off. Ice keeps the swelling down and swelling causes pain. Make sure you wrap the ice pack in a towel and don't apply directly to the skin. -No driving x1 week or of you are taking pain medications. -If you have dino or sutures in place, they will be removed at your clinic appointment in 7-10 days. -Do Not remove any steri tapes (white tapes) that cover the incision. If you have steri-tapes on your incision, do not use antibacterial ointment. -Follow-up with Dr. Henderson Sunday 05/13 11:30am -F/u pedro/ Enrrique in for repeat cystoscopy. -soft diet: No beef/pork raw vegetables x1 -week. Cooked vegetables are fine -no straining to move bowels -pain meds are very constipating: if you do not move your bowels daily take a dose of OTC milk of magnesia -It is ok to shower. No bathe, soaking, swimming or hot tubs -Keep wound clean and dry. Wash incision with soap and water daily. Pat dry, don't rub. -You may find that your appetite is smaller. Eat 3-6 small meals throughout the day. It is important to drink lots of water after surgery, 6-10 glasses a day. -If you were given an incentive spirometry (breathing site supervising technical operator?), continue to do this 10x/hour while awake. -We do want you up walking, at least 5-6 times per day. This is very important to prevent pneumonia and blood clots. You can climb stairs, take them slowly. -No lifting over 5 pounds. This is very important to avoid developing a hernia in your incision. -You may find that you are very tired after surgery- this is normal. -please do not smoke for a minimum of 72 hours after surgery. -Use plain tylenol for pain. 500mg every 4-6hrs as needed. -Rx. [place] for severe pain- try to avoid. This will cause constipation. Gastrointestinal Soft Diet Overview Overview What is a gastrointestinal soft diet? This diet is soft in texture, low in fiber, and easy to digest. The goal is to decrease) in the bowel that may cause and discomfort. This diet is often used after abdominal surgery or as a transitional diet after flares. Meats & Meat Substitutes ? Foods Allowed: Chicken, turkey, fish, tender cuts of beef and pork, ground meats, eggs, creamy nut butters, tofu, skinless hot dogs, sausage patties without whole spices ? Foods to Avoid : Tough, fibrous meats with gristle, meat with casings (hot dogs, sausage, kielbasa), lunch meats with whole spices, shellfish, beans, chunky peanut butter, nuts Fruits and Juices ? Foods Allowed: Fruit juices without pulp, banana, avocado, applesauce, canned peaches and pears, cooked fruit without the skin/seeds ? Foods to Avoid: Juices with pulp, fresh fruit (except banana and avocado), dried fruits, canned fruit cocktail and pineapple, coconut, frozen/thawed berries Vegetables ? Foods Allowed: Well-cooked or canned vegetables, potatoes without skin, tomato sauces, vegetable juice ? Foods to Avoid: Raw vegetables, all corn, all mushrooms, stewed tomatoes, potato skins, stir-fernández vegetables, sauerkraut, pickles, olives, all dried beans, peas, and legumes Cereals and Grains ? Foods Allowed: Low- fiber dry or cooked cereals (less than 2 grams fiber per serving), white rice, pasta, macaroni, or noodles ? Foods to Avoid: Cereals with nuts, berries, dried fruits, whole grain cereals, bran cereals, granola, brown or wild rice, whole grain pasta Breads and Crackers ? Foods Allowed: White/refined breads and rolls, plain bagel, toast, plain crackers, loli crackers ? Foods to Avoid: Whole grain breads- including white whole grain; bread/ rolls with raisins, nuts or seeds, multi-grain crackers Dairy ? Foods Allowed: Milk, cheese, yogurt, milkshakes, pudding, ice cream, cottage cheese, sherbet ; lactose free or low lactose versions if lactose intolerant ? Foods to Avoid: Dairy product mixed with fresh fruit (except banana), berries, nuts or seeds Desserts ? Foods Allowed: Plain cake, pudding, custard, ice cream, sherbet, gelatin, fruit whips ? Foods to Avoid: Any dessert that contains nuts, dried fruits, coconut, or fruits with seeds Herbs and Spices ? Foods Allowed: All ground spices or herbs, salt ? Foods to Avoid: Whole spices such as peppercorns, whole cloves, anise seeds, celery seeds, kartik, marcia seeds, and fresh herbs Snacks/Other Foods ? Foods Allowed: Sugar, honey, jelly, mayonnaise, mustard, soy sauce, oil, butter, margarine, marshmallows, cookies without dried fruits or nuts, snack chips and pretzels using refined flours ? Foods to Avoid: Carbonated beverages, jams or jellies with seeds, popcorn After several weeks, slowly start to reintroduce the ?Foods to Avoid? back into your diet unless your doctor has told you otherwise. Try a small portion of one of these foods each day. If it does not bother you within 24 hours, it can be added to your diet. Continue to add new foods in this way. Some people may continue to have food sensitivities and may need to continue to avoid certain foods. If you cannot tolerate a food, avoid that food for a few weeks before you try it again. Guidelines when eating 1. Avoid any food that you cannot tolerate or that causes gas, bloating, or stomach pain. 2. Make time for your meals. Do not eat while you are in a hurry. Cut your food into small pieces. Chew each bite to a mashed potato consistency. Do not eat when you cannot concentrate on chewing well. 3. Drink at least 6-8 cups of fluid per day Fluids include: water, coffee, tea, juice, milk, popsicles, soups, gelatin, pudding, ice cream, sherbet, and yogurt. In addition, choose caffeine-free beverages more often, especially if you are having diarrhea. 4. A daily multivitamin may be recommended if diet is limited in amounts or variety of foods. Do not take any herbal supplements without first checking with your doctor. Referrals: Tamir Osuna MD [ [facility] STAFF PHYSICIAN] - (follow up in 3 month cysto office or OR. ) Fatoumata Henderson MD [ [facility] STAFF PHYSICIAN] - (Office will call you tomorrow for a follow up on Saturday. If you dont hear from them please call [phone]) Activity:: no lifting over 5#'s Equipment/Supplies:: No Equipment Needed Diet:: soft diet DS: Summary Status at Discharge Functional status at discharge: independent ambulation Overall status at discharge: patient is back to baseline Mental Status: mental status grossly normal Speech and Movement: speech and movement normal Mood: congruent mood Affect: normal affect Exam Psych Mental Status: mental status grossly normal Speech and Movement: speech and movement normal Mood: congruent mood Affect: normal affect DS: Data Vitals/I&O Vitals and I&O: Vital Signs Temperature 36.8 C 05/11/20 16:13 Temperature Source Tympanic 05/11/20 16:13 Pulse 56 L 05/11/20 16:13 Pulse Rhythm Irregular 05/11/20 13:10 Respiratory Rate 16 05/11/20 16:13 Respiratory Effort Non-Labored 05/11/20 13:10 Respiratory Depth Normal 05/11/20 13:10 Respiratory Pattern Normal 05/11/20 13:10 Blood Pressure 104/71 05/11/20 16:13 Pulse Oximetry 93 L 05/11/20 16:13 Respiratory End-tidal CO2 27 05/09/20 15:27 Oxygen Delivery Method Room Air 05/11/20 16:13 Oxygen Flow Rate 0 05/11/20 16:13 Fraction of Inspired Oxygen (FIO2) 21 05/10/20 00:03 Pain Level 0 05/11/20 16:13 Comment 05/10/20 19:13 Intake & Output 05/10/20 05/11/20 05/11/20 23:59 11:59 23:59 Intake Total 860 / 1695.333 240 / 240 Output Total 800 / 800 Balance 860 / 595.333 -800 / -560 240 / -560 Intake: IV 500 / 605.333 Oral 360 / 1090 240 / 240 Output: Urine 800 / 800 Other: Urine Color Yellow Straw Urine Appearance Clear Clear Clear Stool Size Moderate Stool Characteristics Soft Formed Voiding Methods Toilet Urinal Data Completed and Pending Labs on day of discharge: Labs from last 24 hours 05/11/20 05/11/20 06:15 06:15 WBC 10.39 RBC 4.18 L Hgb 12.2 L Hct 38.3 L MCV 91.6 D MCH 29.2 MCHC 31.9 L RDW 14.7 H Plt Count 186 MPV 9.4 Immature Gran % 0.5 Neutrophils % 80.2 Lymphocytes % 8.1 Monocytes % 9.5 Eosinophils % 1.5 Basophils % 0.2 Absolute Neutrophils 8.33 H Absolute Lymphocytes 0.84 L Absolute Monocytes 0.99 H Absolute Eosinophils 0.16 Absolute Basophils 0.02 Sodium 138 Potassium 3.4 L Chloride 105 Carbon Dioxide 21.5 Anion Gap 11.5 H BUN 30 H D Creatinine 1.38 H Estimated GFR/1.73 m2 50.94 Glucose 240 H Calcium 8.4 L PFSH Medical History Anxiety (Inactive 08/10/08) Asbestosis (Inactive 08/10/08) Asthma (Inactive 07/08/12) Atopic conjunctivitis (Inactive 10/22/13) Atrial fibrillation (Acute) Benign prostatic hyperplasia (Inactive 02/25/13) Bladder cancer (Acute) Carpal tunnel syndrome (Inactive) Chronic anticoagulation Chronic venous stasis (Resolved) Depressive disorder (Inactive 02/25/13) Diabetes mellitus (Acute 02/25/13) Essential hypertension (Acute 06/24/13) Frequency of micturition (Inactive 01/03/16) Glaucoma (Inactive 10/22/13) B/L Gross hematuria (Inactive) Hyperlipidemia (Inactive 02/25/13) Hypermetropia (Inactive 10/22/13) Hypogonadism (Inactive) Idiopathic peripheral neuropathy (Inactive) Low back pain (Acute 08/10/08) Noncompliance (Resolved) Nuclear senile cataract (Inactive 10/22/13) Obesity (Inactive 08/10/08) Aviva-en-y 02/2014 Obstructive sleep apnea syndrome (Acute 08/10/08) cpap Olecranon bursitis (Inactive) Osteoarthritis (Inactive 08/10/08) BILATERAL KNEE replacements Peptic reflux disease (Inactive 08/10/08) Peripheral neuralgia (Inactive) Presbyopia (Inactive 10/22/13) Pterygium (Inactive 08/10/08) LEFT EYE Regular astigmatism (Inactive 10/22/13) Sensorineural hearing loss, bilateral (Inactive 09/05/17) Tubular adenoma (Inactive) Tubular and tubulovillous adenoma 2011 --suggested repeat 2017 Umbilical hernia (Resolved 08/18/12) Urgency of urination (Inactive 01/03/16) Urinary tract infection (Inactive) Urothelial carcinoma (Acute) Varicose veins of lower extremity (Inactive 08/10/08) Venous insufficiency (chronic) (peripheral) (Acute) Surgical History Cholecystectomy (02/20/18) 02/02/20: Pt denies. -BR History of transurethral destruction of bladder lesion (Acute) Ronnell Fundoplication Repair of umbilical hernia Laparoscopic Aviva-en-y surgery for weight loss S/P colonoscopy (Acute) -2011- tubular and tubulovillous polyps Henderson- 2019- sessile serrated with low grade dysplacia, tubullovillous with high grade dysplacia and tubular adenomas S/P partial colectomy (Acute ~05/09/20) Status post abdominoplasty (Inactive 05/23/16) Status post tonsillectomy (Inactive) Status post total knee replacement (Inactive) B/L Vasectomy Family History Mother Cancer Father Heart disease Sister Cancer Sister No problems noted. Brother No problems noted. Brother No problems noted. Brother No problems noted. Son No problems noted. Son No problems noted. Son No problems noted. Social History Smoking/Tobacco Use Status: Never Second Hand Exposure: Yes Alcohol Intake: current Alcohol Intake frequency: holidays/special occasions only Drug use: Never Substance use type: does not use Caregiver/Support person: No Household members: other Details: son Housing: apartment Communication Needs: None Do you need help understanding health information?: Never Pets and animals: No Do you think of yourself as: straight/heterosexual Current gender identity: male What is your relationship status?: How often do you talk on the phone with friends or family?: once per week How often do you get together with friends or relatives?: decline to answer How often do you attend yazidism or buddhist services?: decline to answer Do you belong to any clubs or organized social groups?: no Panel score (0-1 are the most socially isolated patients): 0 What type of physical activity do you participate in: walking Duration: 15-30 minutes/day Frequency: 1-2 times per week Velia/Anabaptism: Protestant Special velia needs: No Seatbelt use: always Helmet use: No Drive intox or ride w/intox class a regional drivers: No Do you feel safe at home: Yes Do you feel safe in your relationship?: Yes
--- NOTE | 2020-05-11 17:11 | W.PM.DSUDISC ---
Discharge Plan Disposition Patient Disposition: HOME Condition: Good Discharge Details Reason For Visit: S/P COLECTOMY Admit Date/Time: 05/09/20 06:06 Admit Provider: Fatoumata Henderson Attending Provider: Fatoumata Henderson Primary Care Provider: Dominic Restrepo Hospital Course Hospital Course: see [facility] Home Meds and New Rx's Prescriptions: New hydrocodone-acetaminophen [[place]] 5-325 mg tablet 1 tab PO Q6H PRNQty: 7 RF: 0 Continued metformin [Glucophage] 1,000 mg tablet 1,000 mg PO BID Qty: 180 RF: 4 terazosin 2 mg capsule 2 mg PO DAILY Qty: 90 RF: 3 Eliquis 5 mg tablet 5 mg PO BID Qty: 60 RF: 12 Farxiga 10 mg tablet 10 mg PO DAILY Qty: 30 RF: 5 diltiazem HCl [Cardizem CD] 240 mg capsule,extended release 24hr 240 mg PO DAILY Qty: 90 RF: 3 finasteride 5 mg tablet 5 mg PO DAILY Qty: 90 RF: 3 lisinopril 5 mg tablet 5 mg PO DAILY Qty: 90 RF: 3 ondansetron HCl [Zofran] 8 mg tablet 8 mg PO ONCE Qty: 3 RF: 0 multivitamin [Daily Vitamin] 1 EACH tablet 2 ea PO DAILY RF: 0 cyanocobalamin (vitamin B-12) [Vitamin B-12] 500 MCG tablet 500 mcg PO DAILY RF: 0 calcium carbonate-vitamin D3 [Calcium 600 + D(3)] 1 EACH tablet 2 ea PO DAILY RF: 0 iron 159 mg (45 mg iron) tablet extended release 159 mg PO DAILY RF: 0 lovastatin 20 mg tablet 20 mg PO DAILY Qty: 90 RF: 3 bupropion HCl 150 mg tablet extended release 24 hr 150 mg PO DAILY 30 Days Qty: 30 RF: 11 Vitamin C 1,000 MG tablet extended release 1,000 mg PO DAILY RF: 0 omega-3 fatty acids [Fish Oil Concentrate] 1,000 mg Capsule 2,400 mg PO DAILY RF: 0 Discontinued metronidazole 500 mg tablet 500 mg PO ONCE Qty: 8 RF: 0 neomycin 500 mg tablet 500 mg PO ONCE Qty: 8 RF: 0 Shingrix Adjuvant Component-PF Suspension 0.5 ml IM DAILY Qty: 0.5 RF: 1 Discharge Instructions Additional Instructions: Keep an ice bag on the incision. 20 minutes on and 20 minutes off. Ice keeps the swelling down and swelling causes pain. Make sure you wrap the ice pack in a towel and don't apply directly to the skin. -No driving x1 week or of you are taking pain medications. -If you have dino or sutures in place, they will be removed at your clinic appointment in 7-10 days. -Do Not remove any steri tapes (white tapes) that cover the incision. If you have steri-tapes on your incision, do not use antibacterial ointment. -Follow-up with Dr. Henderson Sunday 05/13 11:30am -F/u w/ Enrrique in 3m for repeat cystoscopy. -soft diet: No beef/pork raw vegetables x1 -week. Cooked vegetables are fine -no straining to move bowels -pain meds are very constipating: if you do not move your bowels daily take a dose of OTC milk of magnesia -It is ok to shower. No bathe, soaking, swimming or hot tubs -Keep wound clean and dry. Wash incision with soap and water daily. Pat dry, don't rub. -You may find that your appetite is smaller. Eat 3-6 small meals throughout the day. It is important to drink lots of water after surgery, 6-10 glasses a day. -If you were given an incentive spirometry (breathing appliance tester?), continue to do this 10x/hour while awake. -We do want you up walking, at least 5-6 times per day. This is very important to prevent pneumonia and blood clots. You can climb stairs, take them slowly. -No lifting over 5 pounds. This is very important to avoid developing a hernia in your incision. -You may find that you are very tired after surgery- this is normal. -please do not smoke for a minimum of 72 hours after surgery. -Use plain tylenol for pain. 500mg every 4-6hrs as needed. -Rx. [place] for severe pain- try to avoid. This will cause constipation. Gastrointestinal Soft Diet Overview Overview What is a gastrointestinal soft diet? This diet is soft in texture, low in fiber, and easy to digest. The goal is to decrease) in the bowel that may cause and discomfort. This diet is often used after abdominal surgery or as a transitional diet after flares. Meats & Meat Substitutes ? Foods Allowed: Chicken, turkey, fish, tender cuts of beef and pork, ground meats, eggs, creamy nut butters, tofu, skinless hot dogs, sausage patties without whole spices ? Foods to Avoid : Tough, fibrous meats with gristle, meat with casings (hot dogs, sausage, kielbasa), lunch meats with whole spices, shellfish, beans, chunky peanut butter, nuts Fruits and Juices ? Foods Allowed: Fruit juices without pulp, banana, avocado, applesauce, canned peaches and pears, cooked fruit without the skin/seeds ? Foods to Avoid: Juices with pulp, fresh fruit (except banana and avocado), dried fruits, canned fruit cocktail and pineapple, coconut, frozen/thawed berries Vegetables ? Foods Allowed: Well-cooked or canned vegetables, potatoes without skin, tomato sauces, vegetable juice ? Foods to Avoid: Raw vegetables, all corn, all mushrooms, stewed tomatoes, potato skins, stir-fernández vegetables, sauerkraut, pickles, olives, all dried beans, peas, and legumes Cereals and Grains ? Foods Allowed: Low- fiber dry or cooked cereals (less than 2 grams fiber per serving), white rice, pasta, macaroni, or noodles ? Foods to Avoid: Cereals with nuts, berries, dried fruits, whole grain cereals, bran cereals, granola, brown or wild rice, whole grain pasta Breads and Crackers ? Foods Allowed: White/refined breads and rolls, plain bagel, toast, plain crackers, loli crackers ? Foods to Avoid: Whole grain breads- including white whole grain; bread/ rolls with raisins, nuts or seeds, multi-grain crackers Dairy ? Foods Allowed: Milk, cheese, yogurt, milkshakes, pudding, ice cream, cottage cheese, sherbet ; lactose free or low lactose versions if lactose intolerant ? Foods to Avoid: Dairy product mixed with fresh fruit (except banana), berries, nuts or seeds Desserts ? Foods Allowed: Plain cake, pudding, custard, ice cream, sherbet, gelatin, fruit whips ? Foods to Avoid: Any dessert that contains nuts, dried fruits, coconut, or fruits with seeds Herbs and Spices ? Foods Allowed: All ground spices or herbs, salt ? Foods to Avoid: Whole spices such as peppercorns, whole cloves, anise seeds, celery seeds, kartik, marcia seeds, and fresh herbs Snacks/Other Foods ? Foods Allowed: Sugar, honey, jelly, mayonnaise, mustard, soy sauce, oil, butter, margarine, marshmallows, cookies without dried fruits or nuts, snack chips and pretzels using refined flours ? Foods to Avoid: Carbonated beverages, jams or jellies with seeds, popcorn After several weeks, slowly start to reintroduce the ?Foods to Avoid? back into your diet unless your doctor has told you otherwise. Try a small portion of one of these foods each day. If it does not bother you within 24 hours, it can be added to your diet. Continue to add new foods in this way. Some people may continue to have food sensitivities and may need to continue to avoid certain foods. If you cannot tolerate a food, avoid that food for a few weeks before you try it again. Guidelines when eating 1. Avoid any food that you cannot tolerate or that causes gas, bloating, or stomach pain. 2. Make time for your meals. Do not eat while you are in a hurry. Cut your food into small pieces. Chew each bite to a mashed potato consistency. Do not eat when you cannot concentrate on chewing well. 3. Drink at least 6-8 cups of fluid per day Fluids include: water, coffee, tea, juice, milk, popsicles, soups, gelatin, pudding, ice cream, sherbet, and yogurt. In addition, choose caffeine-free beverages more often, especially if you are having diarrhea. 4. A daily multivitamin may be recommended if diet is limited in amounts or variety of foods. Do not take any herbal supplements without first checking with your doctor. Stand Alone Forms: Nursing Discharge Form Referrals: Tamir Osuna MD [ [facility] STAFF PHYSICIAN] - (follow up in 3 month cysto office or OR. ) Fatoumata Henderson MD [ [facility] STAFF PHYSICIAN] - (Office will call you tomorrow for a follow up on Saturday. If you dont hear from them please call [phone]) Activity:: no lifting over 5#'s Equipment/Supplies:: No Equipment Needed Diet:: soft diet Discharge Orders Discharge Orders: Discharge Order (Routine); Ordered 05/11/20 Ordered By: Stormy Rodriguez DS: Diagnosis Discharge Diagnosis (1) Essential hypertension: Status: Acute (2) Dysplastic colon polyp: Status: Acute (3) Atrial fibrillation: Status: Acute (4) Diabetes mellitus: Status: Acute (5) Obstructive sleep apnea syndrome: Status: Acute (6) High grade dysplasia in colonic adenoma: Status: Acute (7) Urothelial carcinoma: Status: Acute
== END 2020-05-11 17:55 | disposition home or self-care (01) | DRG 331 ==
LOC: PDS 08:35 → MS 16:11
PROVIDERS: Family Medicine; Urology; Admitting Provider Surgery; PCP Family Medicine; Visit Provider Surgery
PROC: 0TJB8ZZ Inspection of Bladder, Via Natural or Artificial Opening Endoscopic (ICD-10-PCS; CPT 52332; 2020-05-09 07:30)
PROC: 0DTN4ZG Resection of Sigmoid Colon, Percutaneous Endoscopic Approach, Hand-Assisted (ICD-10-PCS; CPT 44204; 2020-05-09 07:30)
DX: C18.7 Malignant neoplasm of sigmoid colon (principal); D12.5 Benign neoplasm of sigmoid colon; Z90.49 Acquired absence of other specified parts of digestive tract; K66.0 Peritoneal adhesions (postprocedural) (postinfection); K57.30 Diverticulosis of large intestine without perforation or abscess without bleeding; Z08 Encounter for follow-up examination after completed treatment for malignant neoplasm; C67.9 Malignant neoplasm of bladder, unspecified; R31.0 Gross hematuria; E87.6 Hypokalemia; E83.42 Hypomagnesemia; Z71.3 Dietary counseling and surveillance; I48.91 Unspecified atrial fibrillation; I10 Essential (primary) hypertension; Z79.01 Long term (current) use of anticoagulants; E11.9 Type 2 diabetes mellitus without complications; Z79.84 Long term (current) use of oral hypoglycemic drugs; G47.33 Obstructive sleep apnea (adult) (pediatric)
CPT/HCPCS: 44204; 52000; 36415; 80048; 99232; 99233; 99238; 99252; J1650; NC; 83735; 85025; 88307; 88361; 99221; J0131; J0295; J1100; J1885; J2001; J2405; J2704; J3010; J3475; J3490

== ENCOUNTER → 2020-05-13 08:08 | Outpatient (BNVA) | payer OTHER, SELFPAY | PROVIDERS: PCP Family Medicine; Referring Provider Family Medicine; Visit Provider Surgery | DX: Z48.815 Encounter for surgical aftercare following surgery on the digestive system (principal); Z90.49 Acquired absence of other specified parts of digestive tract ==

== ENCOUNTER 2020-05-18 10:32 | Outpatient (REF) | payer OTHER, SELFPAY ==
[2020-05-20 12:07] LABS: 2-Hydroxy Ethyl Flurazepam Not Detected ng/mL (Cutoff: 10); 6-monoacetylmorphine Not Detected ng/mL (Cutoff: 25); Alpha-Hydroxy Midazolam Not Detected ng/mL (Cutoff: 10); Alpha-Hydroxy Triazolam Not Detected ng/mL (Cutoff: 10); Alpha-Hydroxyalprazolam Not Detected ng/mL (Cutoff: 10); Alpha-OH-alprazolam Glucuronid Not Detected ng/mL (Cutoff: 50); Alprazolam Not Detected ng/mL (Cutoff: 10); Amphetamines Negative ng/mL (Cutoff: 500); Barbiturates Negative ng/mL (Cutoff: 200); Buprenorphine Not Detected ng/mL (Cutoff: 5); Chlordiazepoxide Not Detected ng/mL (Cutoff: 10); Clobazam Not Detected ng/mL (Cutoff: 10); Clonazepam Not Detected ng/mL (Cutoff: 10); Cocaine Negative ng/mL (Cutoff: 150); Codeine Not Detected ng/mL (Cutoff: 25); Comment Normal; Creatinine, U 54.3 mg/dL; Diazepam Not Detected ng/mL (Cutoff: 10); Dihydrocodeine Not Detected ng/mL (Cutoff: 25); EDDP Not Detected ng/mL (Cutoff: 25); Fentanyl Not Detected ng/mL (Cutoff: 2); Flurazepam Not Detected ng/mL (Cutoff: 10); Hydrocodone Not Detected ng/mL (Cutoff: 25); Hydromorphone Not Detected ng/mL (Cutoff: 25); Hydromorphone-3-beta-glucuroni Not Detected ng/mL (Cutoff: 100); Lorazepam Not Detected ng/mL (Cutoff: 10); Lorazepam Glucuronide Not Detected ng/mL (Cutoff: 50); Meperidine Not Detected ng/mL (Cutoff: 25); Methadone Not Detected ng/mL (Cutoff: 25); Midazolam Not Detected ng/mL (Cutoff: 10); Morphine Not Detected ng/mL (Cutoff: 25); N-Desmethylclobazam Not Detected ng/mL (Cutoff: 200); N-desmethyltapentadol Not Detected ng/mL (Cutoff: 50); Naloxone Not Detected ng/mL (Cutoff: 25); Norbuprenorphine Not Detected ng/mL (Cutoff: 5); Norfentanyl Not Detected ng/mL (Cutoff: 2); Norhydrocodone Not Detected ng/mL (Cutoff: 25); Normeperidine Not Detected ng/mL (Cutoff: 25); Noroxycodone Not Detected ng/mL (Cutoff: 25); Noroxymorphone Not Detected ng/mL (Cutoff: 25); O-desmethyltramadol Not Detected ng/mL (Cutoff: 25); Oxazepam Glucuronide Not Detected ng/mL (Cutoff: 50); Phencyclidine Negative ng/mL (Cutoff: 25); Prazepam Not Detected ng/mL (Cutoff: 10); Propoxyphene Not Detected ng/mL (Cutoff: 25); Specific Gravity 1.009; Tapentadol Not Detected ng/mL (Cutoff: 25); Temazepam Not Detected ng/mL (Cutoff: 10); Temazepam Glucuronide Not Detected ng/mL (Cutoff: 50); Tetrahydrocannabinol Negative ng/mL (Cutoff: 50); Tramadol Not Detected ng/mL (Cutoff: 25); Triazolam Not Detected ng/mL (Cutoff: 10); Zolpidem Phenyl-4-Carboxy acid Not Detected ng/mL (Cutoff: 10); pH 5.2
== END 2020-05-18 10:52 ==
LOC: LBN 10:32
PROVIDERS: PCP Family Medicine; Visit Provider Nurse Practitioner Family
DX: Z79.899 Other long term (current) drug therapy (principal)
CPT/HCPCS: 80307; 80347; 80364

== ENCOUNTER → 2020-05-20 13:11 | Outpatient (BNVA) | payer OTHER, SELFPAY | PROVIDERS: PCP Family Medicine; Referring Provider Family Medicine; Visit Provider Surgery | DX: Z48.815 Encounter for surgical aftercare following surgery on the digestive system (principal); C18.7 Malignant neoplasm of sigmoid colon; Z90.49 Acquired absence of other specified parts of digestive tract; E11.9 Type 2 diabetes mellitus without complications; I10 Essential (primary) hypertension ==

== ENCOUNTER → 2020-08-12 09:52 | Outpatient (BNVA) | payer OTHER, SELFPAY | PROVIDERS: PCP Family Medicine; Referring Provider Family Medicine; Visit Provider Internal Medicine Cardiovascular Disease | DX: I48.20 Chronic atrial fibrillation, unspecified (principal); I10 Essential (primary) hypertension; Z79.01 Long term (current) use of anticoagulants; Z79.899 Other long term (current) drug therapy | CPT/HCPCS: 99214 ==

== ENCOUNTER → 2020-09-16 10:53 | Outpatient (BNVA) | payer OTHER, SELFPAY | PROVIDERS: PCP Family Medicine; Referring Provider Family Medicine; Visit Provider Urology | DX: C68.9 Malignant neoplasm of urinary organ, unspecified (principal); N47.1 Phimosis | CPT/HCPCS: 81003; 99213 ==

== ENCOUNTER 2020-09-16 13:23 | Outpatient (REF) | payer OTHER, SELFPAY ==
--- NOTE | 2020-09-16 11:15 | PAPNONF_PTH ---
PATIENT: Eugene Rueda LOC: [facility] U#:[id number] AGE/SX: 69/M ROOM: RE09/16/[address]: Tamir Osuna MD : [id number] BED: DIS: 09/16/2020 SPEC #: [id number] RECD: 09/16/20 13:29 STATUS: CORNEL REQ #: [id number] TAYLOR: 09/16/20 11:[address]: Tamir Osuna DEPT: [facility] Cytology RECD BY: Bronwyn Aviles ENTERED: 09/16/20 13:29 SP TYPE: ARIC WOODRUFF DR: Dominic Restrepo MD Tissues: 1 - BODY FLUID CYTO(SPUTUM/URINE)[facility] Procedures: BODY FLUID CYTO(URINE/SPUTUM) Comments: [id number] (TOTAL VOLUME = 60 ml's) (30 ml's URINE & 30 ml's CYTOLYT ADDED IN 2 CONTAINERS)
== END 2020-09-16 13:43 ==
LOC: LBN 13:23
PROVIDERS: PCP Family Medicine; Visit Provider Urology
DX: C67.9 Malignant neoplasm of bladder, unspecified (principal)
CPT/HCPCS: 88104

== ENCOUNTER 2020-09-24 18:53 | Emergency (ER) | payer OTHER, SELFPAY ==
[2020-09-24] VITALS (27 sets, daily range): BP systolic 130–160; BP diastolic 72–127; PULSE 99–154; RESP 14–33; TEMP 36.5–37.1; O2SAT 93–98
--- NOTE | 2020-09-24 19:00 | DI.CT_ITS ---
EXAM: CT ABDOMEN PELVIS W CLINICAL HISTORY: Left lower quadrant pain, numerous abdominal surg TECHNIQUE: Imaging Protocol: Axial computed tomography images with coronal and sagittal reformatted images were created and reviewed CONTRAST MATERIAL: Intravenous: Omnipaque 350 Contrast volume:100 mL Oral: No FINDINGS: ABDOMEN: Lung Bases: Normal where visualized. Liver: Normal density. No measurable mass. Hepatomegaly. Portal, Superior Mesenteric, and Splenic Veins: Unremarkable. Gallbladder and Biliary Tract: There is again seen layering debris within the gallbladder. This may represent stones versus sludge. No gallbladder wall thickening or biliary ductal dilatation is prese nt. Pancreas: There is fatty atrophy of the pancreas. No pancreatic mass is identified. No peripancreat ic inflammatory changes are seen. Spleen: Normal. Adrenals: No masses seen. Kidneys: Normal size, contour and axis. There is a stable nonobstructing stone in the lower pole of t he left kidney. No masses seen. Note is again made of a retroaortic left renal vein. Abdominal Aorta: Abdominal portion non-dilated. Moderately severe atherosclerosis. Bowel: No obstruction or bowel wall thickening. Appendix is unremarkable. There is diverticulosis thr oughout the colon but no evidence of acute diverticulitis. There are findings suggestive of prior ga stric bypass surgery. There is a hiatal hernia. The previously noted enhancing nodule in the antrum of the stomach is not visualized on the current examination. There was however a 2nd nodule which a ppears stable. (Series 5, image 272). Peritoneal Cavity: No ascites, collection or mesenteric inflammatory response. Lymph Nodes: Within normal limits. Bones: Degenerative changes are present in the spine. Soft Tissues: Postsurgical changes are seen in the anterior abdominal wall. A fluid density collecti on is seen in the left anterior abdominal superficial to the left anterior abdominal wall musculature . (Series 5, images 502 through 665). It measures 1.2 cm in thickness, 8.8 cm transverse and 8 cm c raniocaudal. There are bilateral fat containing inguinal hernia. PELVIS: Bladder: The previously noted urinary bladder wall thickening has resolved. The urinary bladder is g rossly unremarkable. Reproductive Organs: The prostate gland is enlarged and impinges upon the base of the urinary bladder . Lymph Nodes: Within normal limits. Bones: Degenerative changes are present in the spine. IMPRESSION: 1. Resolution of the previously noted urinary bladder wall thickening. 2. Debris seen layering in the gallbladder. This was present on the prior examination. This may rep resent stones or sludge. Gallbladder ultrasound may be considered for further evaluation. 3. Enhancing nodule previously seen in the gastric antrum is not visualized and may have been removed . Smaller gastric antral polyp is again seen and is stable. Please correlate with patient's surgica l history. 4. Left anterior abdominal wall fluid collection as described above. This may represent a resolving hematoma, seroma or abscess. Please correlate clinically. RADIATION DOSE DELIVERED: 1,320.86mGy.cm Total DLP DATA REPOSITORY: All CT scans at this facility are submitted to the National Radiology Data Registry (NRDR) Dose Index Registry (DIR) with the [employer] (A[employer]). RADIATION OPTIMIZATION: All CT scans at this facility use at least one of these dose optimization te chniques: automated exposure control; mA and/or kV adjustment per patient size (includes targeted exa ms where dose is matched to clinical indication); or iterative reconstruction.
--- NOTE | 2020-09-24 19:16 | ED.GENADUL_ITS ---
Discharge Plan Disposition Patient Disposition: HOME Condition: Good Discharge Details Clinical Impression: Gastroenteritis, Vomiting, Acute UTI Primary Care Provider: Dominic Restrepo ED Provider: Buzz Jara Home Meds and New Rx's Prescriptions: New cephalexin [Keflex] 500 mg capsule 500 mg PO QID 7 Days Qty: 28 RF: 0 Continued metformin [Glucophage] 1,000 mg tablet 1,000 mg PO BID Qty: 180 RF: 4 terazosin 2 mg capsule 2 mg PO DAILY Qty: 90 RF: 3 Eliquis 5 mg tablet 5 mg PO BID Qty: 60 RF: 12 Farxiga 10 mg tablet 10 mg PO DAILY Qty: 30 RF: 5 finasteride 5 mg tablet 5 mg PO DAILY Qty: 90 RF: 3 lisinopril 5 mg tablet 5 mg PO DAILY Qty: 90 RF: 3 multivitamin [Daily Vitamin] 1 EACH tablet 2 ea PO DAILY RF: 0 cyanocobalamin (vitamin B-12) [Vitamin B-12] 500 MCG tablet 500 mcg PO DAILY RF: 0 calcium carbonate-vitamin D3 [Calcium 600 + D(3)] 1 EACH tablet 2 ea PO DAILY RF: 0 iron 159 mg (45 mg iron) tablet extended release 159 mg PO DAILY RF: 0 lovastatin 20 mg tablet 20 mg PO DAILY Qty: 90 RF: 3 bupropion HCl 150 mg tablet extended release 24 hr 150 mg PO DAILY 30 Days Qty: 30 RF: 11 metoprolol succinate 50 mg tablet extended release 24 hr 50 mg PO DAILY Qty: 90 RF: 3 diltiazem HCl [Cardizem CD] 240 mg capsule,extended release 24hr 240 mg PO DAILY Qty: 90 RF: 3 Vitamin C 1,000 MG tablet extended release 1,000 mg PO DAILY RF: 0 omega-3 fatty acids [Fish Oil Concentrate] 1,000 mg Capsule 2,400 mg PO DAILY RF: 0 Discharge Instructions Instructions: Urinary Tract Infection in Men (ED), Gastroenteritis (ED) Additional Instructions: At this time your symptoms has resolved, you have been rehydrated. I suspect that the initial cause of your symptoms was gastroenteritis likely from something that you ate as it came on so quickly after going out to eat. Please continue to drink plenty of fluids, and eat easy foods for the next 24 to 48 hours. Avoiding any fatty greasy or spicy foods. Your CAT scan did not show any signs of obstruction, however your gallbladder does appear to be mildly irritated. Although I do not think that this is the cause of your symptoms today, it does require further evaluation by your surgeon. Please contact their office and follow-up closely. Additionally you do have evidence of a mild urinary tract infection. Please take the antibiotic as directed. If you notice any worsening of your symptoms, or any new symptoms such as vomiting, diarrhea, fever, chills, shortness of breath, chest pain, numbness, weakness, or fainting , please return immediately to the emergency department for reevaluation. Please follow up with your primary care provider as soon as possible for reassessment and reevaluation. As always, it was a pleasure participating in your medical care today. Referrals: Fatoumata Henderson MD [ [facility] STAFF PHYSICIAN] - Dominic Restrepo [Primary Care Provider] - Medical Decision Making <Joao Ahn MD - Last Filed: 09/24/20 19:22> 69-year-old male presents from home stating after eating breakfast this morning, approximately 1 hour later he developed abdominal discomfort in his left lower quadrant, felt he became distended, and has been vomiting with intolerance of p.o. throughout the day. No fever. He arrives to the ED hypertensive with a pulse approximately 120. His abdomen is distended and tympanic and tender in the left lower quadrant. He has a history of Aviva-en-Y gastric bypass, partial colectomy. I am concerned he is at risk for partial or complete small bowel obstruction. IV access established, screening labs obtained, fluids, antiemetics, analgesics initiated. Patient will be referred for CT imaging. As it is change of shift, patient to be signed out to Dr. Jara. Please see his note regarding final impression and disposition. <Buzz Jara DO - Last Filed: 09/24/20 22:53> 69-year-old male signed out to me by my colleague Dr. Joao Ahn. Please refer to his HPI, physical exam assessment and plan. At time of signout we are pending labs and CT imaging results. Patient presented for vomiting mild abdominal pain after going out to eat at a local restaurant. Patient was given Zofran and pain meds for mild left-sided abdominal pain. Laboratory work-up has returned, no significant white count, bandemia, no significant electrolyte abnormalities. Mild anion gap mild elevated BUN suggestive of mild dehydration. Urinalysis does show evidence of mild infection. CT scan per virtual radiology shows no evidence of diverticulitis, obstruction, or ileus. Gallbladder does look mildly atypical/inflamed. Repeat abdominal exam now shows no right upper quadrant tenderness whatsoever. Repeat abdominal exam shows no abdominal tenderness at all on reassessment after treatment. Patient is tolerating p.o. trial well. I did contact Dr. Henderson and briefly discussed the case with her going to the CT scan findings. She would like to follow-up on an outpatient basis with the patient. Currently though there is no evidence of an acute surgical abdomen whatsoever no indication for admission. After tolerating his p.o. trial well, the patient states that he feels well and would like to go home. Patient will be started on Keflex 4 times daily for his mild UTI, no need for pain meds or Zofran at home as his nausea and vomiting and pain is completely resolved. Discussed the importance of surgical follow-up, discussed red flags which to return. At this time no evidence of diverticulitis, obstruction, or other significant life-threatening etiology. Also of note the patient did have in his surgical history cholecystectomy however this is clearly not the case, it is since been removed from his surgical history. I have extensively reviewed the treatment plan and discharge instructions with the patient and their family/son. I have addressed all patient concerns at this time. The patient and family was made aware of what symptoms to monitor for that would warrant a return to the emergency department. Discussed the plan with the patient and family, they demonstrate verbal understanding and agreement with our assessment and plan at this time. FINDINGS: Heart: No no change cardiomegaly. Liver: Hepatosplenomegaly unchanged. Gallbladder appearances are abnormal. There appears to be mild wall thickening and possible hyperemia. There are layering gallstones and debris. Gallbladder and bile ducts: See Liver finding. Pancreas: Normal. No ductal dilation. Spleen: Normal. No splenomegaly. Adrenal glands: Normal. No mass. Kidneys and ureters: Nonobstructing left renal lower pole calculus again noted. There is no significant hydronephrosis or hydroureter. Stomach and bowel: Previously seen surgical change at the GE junction and gastric fundal levels are stable. There is a small sessile nodular density at the gastric antrum series 4, image 28 measuring 9 mm, not significantly changed from previous exam. A previously noted larger soft tissue density focus Gastrojejunostomy again seen. Appendix: No evidence of appendicitis. Intraperitoneal space: Unremarkable. No free air. No significant fluid collection. Vasculature: Severe atherosclerotic change again noted in the vasculature. Lymph nodes: Unremarkable. No enlarged lymph nodes. Urinary bladder: Previously seen bladder wall thickening has resolved. A soft tissue nodule adjacent to the right bladder dome is decreased in size. Reproductive: Prostatic impression at the bladder base remains slightly prominent with mild prostatic enlargement, 5.4 cm transverse. Bones/joints: Unremarkable. No acute fracture. Soft tissues: There is a moderate to large left-sided fat containing inguinal hernia and a moderate right-sided fat containing hernia. Postsurgical change of the lower abdominal wall level is again seen. Other findings: Adjacent is no longer seen, presumably removed. IMPRESSION: 1. Abnormal gallbladder findings. Follow-up sonography and/or radionuclide hepatobiliary imaging may be helpful. 2. Previously seen bladder wall thickening has resolved. 3. Small gastric antral polyp again seen. Larger density appears to have been removed. Thank you for allowing us to participate in the care of your patient. Dictated and Authenticated by: Yenifer Zendejas MD 09/24/2020 9:25 PM Eastern Time ([place] & [place]) HPI <Joao Ahn MD - Last Filed: 09/24/20 19:22> General Mode of arrival: ambulatory . Date/Time Provider Initiated Documentation: 09/24/20 18:53 . Limitations to Documentation: no limitations . Information obtained by: patient . History of Present Illness 69 year old M presents to the emergency department with the chief complaint of Left lower quadrant abdominal pain and vomiting, described as moderate, Quality is described as dull and constant, and is localized to the abdomen. Patient reports no radiation. Patient started experiencing this hour(s) and it has been constant. No relieving factors improve symptom(s), Eating worsens symptoms . Patient notes nausea/vomiting; denies fever/chills. Patient did receive the following treatments prior to arrival, none Related Data Home Medications Medication Instructions Recorded Confirmed calcium carbonate-vitamin D3 2 ea PO DAILY 03/29/14 09/24/20 [Calcium 600 + D(3)] cyanocobalamin (vitamin B-12) 500 mcg PO DAILY 03/29/14 09/24/20 [Vitamin B-12] multivitamin [Daily Vitamin] 2 ea PO DAILY 03/29/14 09/24/20 Vitamin C 1,000 mg PO DAILY 01/03/18 09/24/20 omega-3 fatty acids [Fish Oil 2,400 mg PO DAILY 10/20/18 09/24/20 Concentrate] ferrous sulfate, dried 159 mg (45 159 mg PO DAILY 07/28/19 09/24/20 mg iron) tablet,extended release metformin 1,000 mg tablet 1,000 mg PO BID #180 tab-cap 07/28/19 09/24/20 terazosin 2 mg capsule 2 mg PO DAILY #90 tab-cap 07/28/19 09/24/20 apixaban 5 mg tablet 5 mg PO BID #60 tab 08/18/19 09/24/20 lovastatin 20 mg tablet 20 mg PO DAILY #90 tab-cap 01/20/20 09/24/20 bupropion HCl 150 mg 24 hr tablet, 150 mg PO DAILY 30 Days #30 tab-cap 02/05/20 09/24/20 extended release dapagliflozin 10 mg tablet 10 mg PO DAILY #30 tab 04/27/20 09/24/20 finasteride 5 mg tablet 5 mg PO DAILY #90 tab 04/27/20 09/24/20 lisinopril 5 mg tablet 5 mg PO DAILY #90 tab-cap 04/27/20 09/24/20 metoprolol succinate 50 mg 50 mg PO DAILY #90 tab 07/18/20 09/24/20 tablet,extended release 24 hr diltiazem HCl 240 mg 240 mg PO DAILY #90 tab-cap 07/27/20 09/24/20 capsule,extended release 24 hr cephalexin [Keflex] 500 mg PO QID 7 Days #28 cap 09/24/20 Previous Rx's Medication Instructions Recorded metformin 1,000 mg tablet 1,000 mg PO BID #180 tab-cap 07/28/19 terazosin 2 mg capsule 2 mg PO DAILY #90 tab-cap 07/28/19 apixaban 5 mg tablet 5 mg PO BID #60 tab 08/18/19 lovastatin 20 mg tablet 20 mg PO DAILY #90 tab-cap 01/20/20 bupropion HCl 150 mg 24 hr tablet, 150 mg PO DAILY 30 Days #30 tab-cap 02/05/20 extended release dapagliflozin 10 mg tablet 10 mg PO DAILY #30 tab 04/27/20 finasteride 5 mg tablet 5 mg PO DAILY #90 tab 04/27/20 lisinopril 5 mg tablet 5 mg PO DAILY #90 tab-cap 04/27/20 metoprolol succinate 50 mg 50 mg PO DAILY #90 tab 07/18/20 tablet,extended release 24 hr diltiazem HCl 240 mg 240 mg PO DAILY #90 tab-cap 07/27/20 capsule,extended release 24 hr cephalexin [Keflex] 500 mg PO QID 7 Days #28 cap 09/24/20 Allergies Allergy/AdvReac Type Severity Reaction Status Date / Time No Known Allergies Allergy Verified 09/24/20 19:12 General Stated Complaint: Abd Prob TREVOR: 3 Review of Systems <Joao Ahn MD - Last Filed: 09/24/20 19:22> Narrative: No fever. States he had a formed bowel movement today. Feels distended. 8 systems reviewed and otherwise negative. PFSH <Joao Ahn MD - Last Filed: 09/24/20 19:22> Medical History (Updated 09/24/20 @ 22:36 by Buzz Jara DO) Anxiety (08/10/08) Asbestosis (08/10/08) Asthma (07/08/12) Atopic conjunctivitis (10/22/13) Atrial fibrillation Benign prostatic hyperplasia (02/25/13) Bladder cancer Carpal tunnel syndrome Chronic anticoagulation Chronic venous stasis Depressive disorder (02/25/13) Diabetes mellitus (02/25/13) Essential hypertension (06/24/13) Frequency of micturition (01/03/16) Glaucoma (10/22/13) B/L Gross hematuria High grade dysplasia in colonic adenoma Hyperlipidemia (02/25/13) Hypermetropia (10/22/13) Hypogonadism Idiopathic peripheral neuropathy Low back pain (08/10/08) Noncompliance Nuclear senile cataract (10/22/13) Obesity (08/10/08) Aviva-en-y 02/2014 Obstructive sleep apnea syndrome (08/10/08) cpap Olecranon bursitis Osteoarthritis (08/10/08) BILATERAL KNEE replacements Peptic reflux disease (08/10/08) Peripheral neuralgia Presbyopia (10/22/13) Pterygium (08/10/08) LEFT EYE Regular astigmatism (10/22/13) Sensorineural hearing loss, bilateral (09/05/17) Tubular adenoma Tubular and tubulovillous adenoma 2011 --suggested repeat 2017 Umbilical hernia (08/18/12) Urgency of urination (01/03/16) Urinary tract infection Urothelial carcinoma Varicose veins of lower extremity (08/10/08) Venous insufficiency (chronic) (peripheral) Surgical History (Updated 09/24/20 @ 21:40 by Dedra Pickett) History of transurethral destruction of bladder lesion Ronnell Fundoplication Repair of umbilical hernia Laparoscopic Aviva-en-y surgery for weight loss S/P colonoscopy Haddad-2011- tubular and tubulovillous polyps Henderson- 2019- sessile serrated with low grade dysplacia, tubullovillous with high grade dysplacia and tubular adenomas S/P partial colectomy (~05/09/20) Status post abdominoplasty (05/23/16) Status post tonsillectomy Status post total knee replacement B/L Vasectomy Family History Mother Cancer Father Heart disease Sister Cancer Sister No problems noted. Brother No problems noted. Brother No problems noted. Brother No problems noted. Son No problems noted. Son No problems noted. Son No problems noted. Social History Smoking/Tobacco Use Status: Never Second Hand Exposure: Yes Smoking risk assessment performed?: Yes Alcohol Intake: current Alcohol Intake frequency: holidays/special occasions only Drug use: Never Substance use type: does not use Caregiver/Support person: No Household members: other Details: son Housing: apartment Communication Needs: None Do you need help understanding health information?: Never Pets and animals: No Do you think of yourself as: straight/heterosexual Current gender identity: male What is your relationship status?: How often do you talk on the phone with friends or family?: once per week How often do you get together with friends or relatives?: decline to answer How often do you attend anabaptist or christian services?: decline to answer Do you belong to any clubs or organized social groups?: no Panel score (0-1 are the most socially isolated patients): 0 What type of physical activity do you participate in: walking Duration: 15-30 minutes/day Frequency: 1-2 times per week Velia/Temple: Moravian Special veila needs: No Seatbelt use: always Helmet use: No Drive 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 Pleasant, well groomed, interactive. HEAD: Normocephalic, atraumatic ENT: Mucous membranes moist, oropharynx unremarkable, External ear exam unremarkable EYES: PERRL, EOMI NECK: Full ROM, no GLEN, no menigismus CHEST/RESP: Nontender, clear to auscultation bilateral, no wheeze/rhonchi/rales CARDIOVASCULAR: Distant, regular and tachycardic. 2+ Rad pulse bilateral ABDOMEN: Soft, distended and tympanitic. Mild rebound present EXT: Full ROM, no edema, no rash Neuro: Grossly normal neurologic exam, conversant, interactive. Psych: Speech fluent, thoughts congruent, affect normal Course <Joao Ahn MD - Last Filed: 09/24/20 19:22> Vital Signs Vital signs: Vital Signs Temperature 36.5 C 09/24/20 19:01 Pulse 126 H 09/24/20 19:01 Respiratory Rate 20 09/24/20 19:01 Blood Pressure 153/127 H 09/24/20 19:01 Pulse Oximetry 97 09/24/20 19:01 Temperature 36.5 C 09/24/20 19:01 Temperature Source Skin 09/24/20 19:01 Pulse 126 H 09/24/20 19:01 Respiratory Rate 20 09/24/20 19:01 Blood Pressure 153/127 H 09/24/20 19:01 Blood Pressure Position Sitting 09/24/20 19:01 Pulse Oximetry 97 09/24/20 19:01 Oxygen Delivery Method Room Air 09/24/20 19:01 Oxygen Flow Rate 0 09/24/20 19:01 Pain Level 8 09/24/20 19:01 Sign Out <Joao Ahn MD - Last Filed: 09/24/20 19:22> Sign Out Data: Sign Out Comment: Followup labs/ct Last updated by Joao Ahn MD at 09/24/20 19:34
[2020-09-24 19:56] LABS: Abs Immature Grans 0.04 10^3/uL (0.0-0.06); Absolute Basophil Count 0.03 10^3/uL (0.0-0.2); Absolute Eosinophil Count 0.07 10^3/uL (0.0-0.7); Absolute Lymphocyte Count 0.67 10^3/uL (1.2-3.4); Absolute Monocyte Count 0.82 10^3/uL (0.1-0.8); Basophils % 0.3; Eosinophils % 0.6; HCT 45.6 % (40.0-50.0); HGB 14.8 g/dL (13.5-17.5); Immature Grans % 0.3; Lymphocytes % 5.8; MCH 28.9 pg (27.0-33.0); MCHC 32.5 % (32.0-36.0); MCV 89.1 fL (80-95); MPV 8.8 fL (8.0-11.0); Monocytes % 7.1; Neutrophils % 85.9; Nucleated RBC 0 %; Platelet Count 220 10^3/uL (130-400); RBC 5.12 10^6/uL (4.36-5.78); RDW 14.7 % (11.8-14.1); RDW-SD 48.1 fL
[2020-09-24] MEDS: Ondansetron 4 MG/2 ML VIAL IVP (19:56)
[2020-09-24] MEDS: MORPHine 10 MG/ML VIAL 2 MG IVP (19:56)
[2020-09-24] MEDS: Normal Saline 1,000 ML 1000 ML IV ×2 (19:56→21:46)
[2020-09-24 19:57] LABS: Lactate 1.6 mmol/L (0.6-1.4)
[2020-09-24 20:04] LABS: Bilirubin Negative (Negative); Blood Small (Negative); Clarity Clear (Clear); Glucose 500 mg/dL (Negative); Ketones 15 mg/dL (Negative); Leukocyte Esterase Small (Negative); Nitrite Negative (Negative); Specific Gravity 1.015 (1.005-1.025); Urobilinogen 0.2 EU/dL (Up TO 0.2); pH 5.5 (5-8)
[2020-09-24 20:09] LABS: PTT Activated 33.7 sec (21.0-27.5); Prothrombin Time 10.4 sec (9.3-11.0)
[2020-09-24 20:12] LABS: ALT 25 U/L (16-63); AST 17 U/L (15-37); Absolute Neutrophil Count 9.88 10^3/uL (1.2-6.7); Albumin 4.1 g/dL (3.4-5.0); Alkaline Phosphatase 69 U/L (46-116); Anion Gap 14.4 mmol/L (3-11); BUN 20 mg/dL (7-18); CO2 22.6 mmol/L (21.0-32.0); CREATININE 1.18 mg/dL (0.70-1.30); Calcium 8.9 mg/dL (8.5-10.1); Chloride 101 mmol/L (98-107); Glucose 204 mg/dL (74-106); Lipase 58 U/L (73-393); Sodium 138 mmol/L (136-145); Total Protein 8.1 g/dL (6.4-8.2)
[2020-09-24 20:15] LABS: Bacteria Many HPF (Negative); C & S Indicated? No/Sq. Contamination; Casts Negative LPF (Negative); Crystals Negative HPF (Negative); Epithelial Cells Moderate HPF (Negative); Mucus Negative (Negative)
[2020-09-24] MEDS: Omnipaque 350 MG/ML 100 ML BTL IJ (20:45)
--- NOTE | 2020-09-24 21:25 | DI.VRAD_ITS ---
PROCEDURE INFORMATION: Exam: CT Abdomen And Pelvis With Contrast Exam date and time: 09/24/2020 8:32 PM Age: 69 years old Clinical indication: Abdominal pain; Localized; Left lower quadrant (llq); Prior surgery; Patient HX: Left lower quadrant pain, numerous abdominal surgeries TECHNIQUE: Imaging protocol: Computed tomography of the abdomen and pelvis with intravenous contrast. COMPARISON: CT Abdomen^ROUTINE ABDOMEN PELVIS WITH CONTRAST (Adult) 10/20/2018 8:12 AM FINDINGS: Heart: No no change cardiomegaly. Liver: Hepatosplenomegaly unchanged. Gallbladder appearances are abnormal. There appears to be mild wall thickening and possible hyperemia. There are layering gallstones and debris. Gallbladder and bile ducts: See Liver finding. Pancreas: Normal. No ductal dilation. Spleen: Normal. No splenomegaly. Adrenal glands: Normal. No mass. Kidneys and ureters: Nonobstructing left renal lower pole calculus again noted. There is no significant hydronephrosis or hydroureter. Stomach and bowel: Previously seen surgical change at the GE junction and gastric fundal levels are stable. There is a small sessile nodular density at the gastric antrum series 4, image 28 measuring 9 mm, not significantly changed from previous exam. A previously noted larger soft tissue density focus Gastrojejunostomy again seen. Appendix: No evidence of appendicitis. Intraperitoneal space: Unremarkable. No free air. No significant fluid collection. Vasculature: Severe atherosclerotic change again noted in the vasculature. Lymph nodes: Unremarkable. No enlarged lymph nodes. Urinary bladder: Previously seen bladder wall thickening has resolved. A soft tissue nodule adjacent to the right bladder dome is decreased in size. Reproductive: Prostatic impression at the bladder base remains slightly prominent with mild prostatic enlargement, 5.4 cm transverse. Bones/joints: Unremarkable. No acute fracture. Soft tissues: There is a moderate to large left-sided fat containing inguinal hernia and a moderate right-sided fat containing hernia. Postsurgical change of the lower abdominal wall level is again seen. Other findings: Adjacent is no longer seen, presumably removed. IMPRESSION: 1. Abnormal gallbladder findings. Follow-up sonography and/or radionuclide hepatobiliary imaging may be helpful. 2. Previously seen bladder wall thickening has resolved. 3. Small gastric antral polyp again seen. Larger density appears to have been removed. Dictated and Authenticated by: Yenifer Zendejas MD. Ordering:TONIE Shepherd MD
[2020-09-24 21:40] LABS: Bilirubin Negative (Negative); Blood Trace-intact (Negative); Clarity Clear (Clear); Glucose 500 mg/dL (Negative); Ketones 15 mg/dL (Negative); Leukocyte Esterase Trace (Negative); Nitrite Negative (Negative); Urobilinogen 0.2 EU/dL (Up TO 0.2)
[2020-09-24 21:49] LABS: RBC Negative HPF (0-2)
[2020-09-24 21:50] LABS: Bacteria Many HPF (Negative); C & S Indicated? Yes; Casts Negative LPF (Negative); Crystals Negative HPF (Negative); Epithelial Cells Few HPF (Negative); Mucus Negative (Negative)
--- NOTE | 2020-09-24 22:28 | NUR.NOTE ---
Nursing Note:referal sent to surgery
== END 2020-09-24 23:15 | disposition home or self-care (01) ==
PROVIDERS: Emergency Medicine; Emergency Provider Student in an Organized Health Care Education/Training Program; PCP Family Medicine
DX: N39.0 Urinary tract infection, site not specified (principal); B96.1 Klebsiella pneumoniae [K. pneumoniae] as the cause of diseases classified elsewhere; K52.9 Noninfective gastroenteritis and colitis, unspecified; R11.2 Nausea with vomiting, unspecified; E86.0 Dehydration; E11.9 Type 2 diabetes mellitus without complications; Z79.84 Long term (current) use of oral hypoglycemic drugs; I10 Essential (primary) hypertension
CPT/HCPCS: 36415; 80053; 83690; 87077; 96361; 96374; 96375; 99285; 74177; 81003; 81015; 83605; 85025; 85610; 85730; 87086; 87186; 99284; J2270; J2405; J3490

== ENCOUNTER → 2020-10-14 10:00 | Outpatient (BNVA) | payer OTHER, SELFPAY | PROVIDERS: PCP Family Medicine; Referring Provider Family Medicine; Visit Provider Surgery | DX: R11.2 Nausea with vomiting, unspecified (principal) | CPT/HCPCS: 99213 ==

== ENCOUNTER 2020-11-01 02:04 | Outpatient (CLI) | payer OTHER, SELFPAY ==
--- NOTE | 2020-11-01 07:00 | DI.US_ITS ---
EXAM: US ABDOMEN CLINICAL HISTORY: N/V after eating fatty food x1,F/U CT SCAN,EVALUATE GB FOR CHRONIC INFLAMMA TECHNIQUE: Ultrasound abdomen performed using standard protocol. COMPARISON: CT CT ABDOMEN PELVIS W from 09/24/[address] ABDOMEN PELVIS W from 09/24/2020 FINDINGS: LIVER: Enlarged, 22.1 cm cephalo caudad. Mildly increased echogenicity. No focal liver lesions are seen.. GALLBLADDER: Lumen filled with multiple stones and debris. Irregular gallbladder wall thickening and increased echogenicity. Gallbladder wall measures 6 millimeters in thickness. No pericholecystic f luid identified. GEE'S SIGN: Mild tenderness while scanning over the gallbladder. BILIARY SYSTEM: No intrahepatic or extrahepatic biliary ductal dilation. KIDNEYS: Kidneys are symmetric in size. No evidence of renal calculi. No evidence of hydronephrosis. No renal mass or cyst identified. PANCREAS: Normal where visualized. Body and tail obscured by bowel gas. SPLEEN: Enlarged, measuring 14.9 cm cephalo caudad. ABDOMINAL AORTA AND IVC: Obscured by bowel gas. ASCITES: None seen. IMPRESSION: Cholelithiasis and gallbladder sludge. Marked irregular gallbladder wall thickening. Findings could indicate chronic cholecystitis. No biliary dilatation. DATA REPOSITORY:
== END 2020-11-01 02:24 ==
PROVIDERS: PCP Family Medicine; Visit Provider Surgery
DX: K80.20 Calculus of gallbladder without cholecystitis without obstruction (principal); K82.8 Other specified diseases of gallbladder
CPT/HCPCS: 76700

== ENCOUNTER 2020-11-10 02:02 | Outpatient (CLI) | payer OTHER, SELFPAY ==
[2020-11-11 15:30] LABS: COVID-19 RT-PCR UVMMC Result Negative (Negative)
== END 2020-11-10 02:03 | disposition home or self-care (01) ==
LOC: LBO 02:02
PROVIDERS: PCP Family Medicine; Visit Provider Urology
DX: Z20.822 Contact with and (suspected) exposure to COVID-19 (principal); Z01.818 Encounter for other preprocedural examination
CPT/HCPCS: U0003

== ENCOUNTER 2020-11-14 06:11 | Day surgery (SDC) | payer OTHER, SELFPAY ==
[2020-11-14 06:43] VITALS: BP 142/83; PULSE 100; RESP 20; TEMP 36.4; O2SAT 97
--- NOTE | 2020-11-14 06:56 | HPE_ITS ---
Date of service: 11/14/20 Time of Service: 06:56 Assessment and Plan Assessment and plan (1) Urothelial carcinoma: Status: Acute (2) Phimosis: Status: Acute Assessment and plan: For circumcision and cystoscopy and possible TURBT History of Present Illness History of Present Illness Chief Complaint: 1. Urothelial cell carcinoma of bladder 2. 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 He was treated with transurethral resection alone. He has not had intravesical chemotherapy. He had a surveillance cystoscopy in May which showed no recurrent tumor. He is due for repeat surveillance cystoscopy. He is reluctant to have the procedure done in the office. He would prefer to have anesthesia on board and h ave the procedure done in the operating room. He tells me that he is not having any gross hematuria or dysuria. He does have itching of the penile skin. He is no longer able to retract the foreskin. He is agreeable to a circumcision under the same anesthesia. Review of Systems Narrative: No fevers or chills No vision change or dysphasia No thyroid dysfunction No sputum production or hemoptysis on Eliquis chronically for A Fib (stopped preop). No chest pain Has gall bladder disease and is due for cholecystectomy. No hepatitis, ulcers, jaundice, diarrhea or constipation No seizures, strokes or peripheral neuropathy No bleeding disorders or anemia No gout [facility] Medical History (Updated 11/14/20 @ 07:03 by Tamir Osuna MD) Anxiety (08/10/08) Asbestosis (08/10/08) Asthma (07/08/12) pt. denies this Atopic conjunctivitis (10/22/13) Atrial fibrillation Benign prostatic hyperplasia (02/25/13) Bladder cancer Carpal tunnel syndrome Chronic anticoagulation Chronic venous stasis Depressive disorder (02/25/13) Diabetes mellitus (02/25/13) Essential hypertension (06/24/13) Frequency of micturition (01/03/16) Glaucoma (10/22/13) B/L Gross hematuria High grade dysplasia in colonic adenoma Hyperlipidemia (02/25/13) Hypermetropia (10/22/13) Hypogonadism Idiopathic peripheral neuropathy Low back pain (08/10/08) Noncompliance Nuclear senile cataract (10/22/13) Obesity (08/10/08) Aviva-en-y 02/2014 Obstructive sleep apnea syndrome (08/10/08) cpap Olecranon bursitis Osteoarthritis (08/10/08) BILATERAL KNEE replacements Peptic reflux disease (08/10/08) Peripheral neuralgia Phimosis Presbyopia (10/22/13) Pterygium (08/10/08) LEFT EYE Regular astigmatism (10/22/13) Sensorineural hearing loss, bilateral (09/05/17) Tubular adenoma Tubular and tubulovillous adenoma 2011 --suggested repeat 2017 Umbilical hernia (08/18/12) Urgency of urination (01/03/16) Urinary tract infection Urothelial carcinoma Varicose veins of lower extremity (08/10/08) Venous insufficiency (chronic) (peripheral) Surgical History History of transurethral destruction of bladder lesion Ronnell Fundoplication Repair of umbilical hernia Laparoscopic Aviva-en-y surgery for weight loss S/P colonoscopy Boo-2011- tubular and tubulovillous polyps Santiago- 2019- sessile serrated with low grade dysplacia, tubullovillous with high grade dysplacia and tubular adenomas S/P partial colectomy (~05/09/20) Status post abdominoplasty (05/23/16) Status post tonsillectomy Status post total knee replacement B/L Vasectomy Family History Mother Cancer Father Heart disease Sister Cancer Sister No problems noted. Brother No problems noted. Brother No problems noted. Brother No problems noted. Son No problems noted. Son No problems noted. Son No problems noted. Social History Smoking/Tobacco Use Status: Never Second Hand Exposure: Yes Smoking risk assessment performed?: Yes Alcohol Intake: current Alcohol Intake frequency: holidays/special occasions only Drug use: Never Substance use type: does not use Details: alcohol: unknown Caregiver/Support person: No Household members: other Details: son Housing: apartment Communication Needs: None Do you need help understanding health information?: Never Pets and animals: No Do you think of yourself as: straight/heterosexual Current gender identity: male What is your relationship status?: How often do you talk on the phone with friends or family?: once per week How often do you get together with friends or relatives?: decline to answer How often do you attend caodaism or uatsdin services?: decline to answer Do you belong to any clubs or organized social groups?: no Panel score (0-1 are the most socially isolated patients): 0 What type of physical activity do you participate in: walking Duration: 15-30 minutes/day Frequency: 1-2 times per week Velia/Zoroastrian: Bahai Special velia needs: No Seatbelt use: always Helmet use: No Drive intox or ride w/intox electric pile driver operator: No Do you feel safe at home: Yes Do you feel safe in your relationship?: Yes Meds Home Medications and Allergies Home Medications Medication Instructions Recorded Confirmed Type calcium carbonate-vitamin D3 2 ea PO DAILY 03/29/14 11/14/20 History [Calcium 600 + D(3)] cyanocobalamin (vitamin B-12) 500 mcg PO DAILY 03/29/14 11/14/20 History [Vitamin B-12] multivitamin [Daily Vitamin] 2 ea PO DAILY 03/29/14 11/14/20 History Vitamin C 1,000 mg PO DAILY 01/03/18 11/14/20 History omega-3 fatty acids [Fish Oil 2,400 mg PO DAILY 10/20/18 11/14/20 History Concentrate] ferrous sulfate, dried 159 mg (45 159 mg PO DAILY 07/28/19 11/14/20 History mg iron) tablet,extended release metformin 1,000 mg tablet 1,000 mg PO BID #180 tab-cap 07/28/19 11/14/20 Rx lovastatin 20 mg tablet 20 mg PO DAILY #90 tab-cap 01/20/20 11/14/20 Rx bupropion HCl 150 mg 24 hr tablet, 150 mg PO DAILY 30 Days #30 tab-cap 02/05/20 11/14/20 Rx extended release finasteride 5 mg tablet 5 mg PO DAILY #90 tab 04/27/20 11/14/20 Rx lisinopril 5 mg tablet 5 mg PO DAILY #90 tab-cap 04/27/20 11/14/20 Rx metoprolol succinate 50 mg 50 mg PO DAILY #90 tab 07/18/20 11/14/20 Rx tablet,extended release 24 hr diltiazem HCl 240 mg 240 mg PO DAILY #90 tab-cap 07/27/20 11/14/20 Rx capsule,extended release 24 hr apixaban 5 mg tablet 5 mg PO BID #180 tab 10/06/20 11/14/20 Rx terazosin 2 mg capsule 2 mg PO DAILY #90 tab-cap 10/14/20 11/14/20 Rx dapagliflozin 10 mg tablet 10 mg PO DAILY #90 tab 11/11/20 11/14/20 Rx Allergies Allergy/AdvReac Type Severity Reaction Status Date / Time No Known Allergies Allergy Verified 11/11/20 10:30 Exam Const General: cooperative and no acute distress Neck Neck: supple Resp Effort & Inspection: normal respiratory effort Auscultation: clear to auscultation bilaterally Cardio Rhythm: abnormal rhythm GI Palpation: no masses Penis: phimosis Neuro General: patient alert, patient awake and patient oriented x3 Results Last Vital Signs Temp 36.4 C L 11/14/20 06:43 Pulse 100 H 11/14/20 06:43 Resp 20 11/14/20 06:43 BP 142/83 H 11/14/20 06:43 Pulse Ox 97 11/14/20 06:43 COVID-19 Screening Have you, or household traveled for leisure in last 14 days?: No Had IN PERSON contact w/suspected or confirmed C-19 person: No
[2020-11-14] MEDS: Lactated Ringers 1,000 ML 80 ML IV (07:05)
[2020-11-14] MEDS: ceFAZolin 2 GM/50 ML BAG IVPB (07:34)
[2020-11-14] MEDS: Lidocaine 2% Jelly 6 ML SYR (07:57)
[2020-11-14] MEDS: Bupivacaine 0.5% Pres-Free 30 ML VIAL (07:57)
[2020-11-14] MEDS: Bacitracin 30 GM TUBE (08:31)
--- NOTE | 2020-11-14 08:42 | W.PM.DSUDISC ---
Discharge Plan Disposition Patient Disposition: HOME Condition: Stable Discharge Details Reason For Visit: circumcision Attending Provider: Tamir Osuna Primary Care Provider: Dominic Restrepo Home Meds and New Rx's Prescriptions: New tramadol 50 mg tablet 50 mg PO Q6H PRNQty: 10 RF: 0 No Action metformin [Glucophage] 1,000 mg tablet 1,000 mg PO BID Qty: 180 RF: 4 finasteride 5 mg tablet 5 mg PO DAILY Qty: 90 RF: 3 lisinopril 5 mg tablet 5 mg PO DAILY Qty: 90 RF: 3 multivitamin [Daily Vitamin] 1 EACH tablet 2 ea PO DAILY RF: 0 cyanocobalamin (vitamin B-12) [Vitamin B-12] 500 MCG tablet 500 mcg PO DAILY RF: 0 calcium carbonate-vitamin D3 [Calcium 600 + D(3)] 1 EACH tablet 2 ea PO DAILY RF: 0 iron 159 mg (45 mg iron) tablet extended release 159 mg PO DAILY RF: 0 lovastatin 20 mg tablet 20 mg PO DAILY Qty: 90 RF: 3 bupropion HCl 150 mg tablet extended release 24 hr 150 mg PO DAILY 30 Days Qty: 30 RF: 11 metoprolol succinate 50 mg tablet extended release 24 hr 50 mg PO DAILY Qty: 90 RF: 3 diltiazem HCl [Cardizem CD] 240 mg capsule,extended release 24hr 240 mg PO DAILY Qty: 90 RF: 3 Eliquis 5 mg tablet 5 mg PO BID Qty: 180 RF: 4 terazosin 2 mg capsule 2 mg PO DAILY Qty: 90 RF: 3 Farxiga 10 mg tablet 10 mg PO DAILY Qty: 90 RF: 3 Vitamin C 1,000 MG tablet extended release 1,000 mg PO DAILY RF: 0 omega-3 fatty acids [Fish Oil Concentrate] 1,000 mg Capsule 2,400 mg PO DAILY RF: 0 Discharge Instructions Additional Instructions: may restart Eliquis 11/16/2020 Followup appt with me 2 to 4 weeks for wound check if dressing is still in place tomorrow, may soak in tub to get dressing wet before removing dressing Activity:: Activity as Tolerated Remove Dressings/Wound Care:: 24 hours Shower/Bathe:: 24 hours Diet:: As Tolerated Discharge Orders Discharge Orders: Discharge Order (Routine); Ordered 11/14/20 Ordered By: Tamir Osuna Discharge Data Discharge Comment: pt must void prior to discharge DS: Diagnosis Discharge Diagnosis (1) Urothelial carcinoma: Status: Acute (2) Phimosis: Status: Acute
[2020-11-14 08:44] VITALS: BP 117/68; PULSE 84; RESP 20; TEMP 36.5; O2SAT 92
--- NOTE | 2020-11-14 08:45 | W.PM.OP ---
Date of service: 11/14/20 Time of Service: 08:45 Operative Note Operative Note DATE OF PROCEDURE: 11/14/20 PRE-OP DIAGNOSIS: Phimosis Bladder cancer POST-OP DIAGNOSIS: same PROCEDURE: 1. Circumcision 2. 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 His last occurrence was in January 2020. He was treated with transurethral resection. He has not had any type of intravesical chemotherapy or immunotherapy. He has not had any sign of recurrence either on cystoscopy or cytology. He is due for surveillance cystoscopy. In addition to the bladder cancer, he has noticed an inability to retract the foreskin. On examination, the penile skin is thickened and cracked. 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 He presents for circumcision along with cystoscopy. Findings: 1. densely fibrotic penile skin 2. no recurrent bladder tumor Procedure Description: The patient was brought to the operating room on 11/14/2020. He was given a dose of preoperative IV antibiotics. After successful induction of general anesthesia without intubation, he was placed in the dorsal lithotomy position. His genitalia was prepped and draped. We began our procedure with the circumcision. We performed a penile ring block using half percent Marcaine without epinephrine. We then made a circumferential incision on the outer aspect of the foreskin at approximately the level of the coronal sulcus. As we were unable to retract the foreskin, we then did a dorsal slit to expose the inner aspect of the foreskin. A second circumferential incision was made on the inner aspect of the foreskin approximately 1 to 2 cm below the level of the coronal sulcus. The 2 incisions were connected and the redundant foreskin was removed. Any bleeding points that were encountered were cauterized with the Bovie. Once hemostasis had been obtained, we reapproximated the 2 skin edges using simple interrupted 4-0 chromic sutures. At the completion of the procedure we then performed a dorsal penile nerve block for postoperative pain management. We applied bacitracin ointment and a Vaseline gauze dressing. We then prepared for the cystoscopy. I injected 2% Xylocaine jelly through the urethra into the bladder. We passed the 24 Romanian resectoscope sheath through the urethral meatus into the urethra. We then inspected the urethra and bladder using the 30 degree lens and visual obturator. The pendulous, bulbous and membranous urethra was appeared normal with no strictures. The prostatic urethra showed some lateral lobe enlargement but no papillary lesions. There was a very small mild median lobe of the prostate visible. The bladder neck was then entered and the bladder mucosa was inspected. There was some erythematous tissue directly posteriorly along the path of my scope. I believe the appearance of the mucosa was due to scope trauma. The previous transurethral resection scar was visualized up on the right anterior bladder wall. No papillary or nodular lesions were seen in the bladder. No blood was seen coming from either of the ureteral orifice ease. These findings were confirmed on reinspection of the bladder with a 70 degree lens. Based on today's examination, there is no evidence of tumor recurrence. The bladder was emptied and the resectoscope sheath was removed. The patient tolerated the procedure well. He was taken to the recovery room in stable condition.
[2020-11-14 08:49] VITALS: BP 125/90; PULSE 78; RESP 22; TEMP 36.5; O2SAT 88
[2020-11-14 08:54] VITALS: BP 106/78; PULSE 85; RESP 19; TEMP 36.5; O2SAT 96
[2020-11-14 09:37] VITALS: BP 112/70; PULSE 90; RESP 20; TEMP 36; O2SAT 96
[2020-11-14] MEDS: Phenazopyridine 200 MG TAB PO (10:01)
== END 2020-11-14 11:05 | disposition home or self-care (01) ==
PROVIDERS: PCP Family Medicine; Visit Provider Urology
PROC: 0TBB8ZZ Excision of Bladder, Via Natural or Artificial Opening Endoscopic (ICD-10-PCS; CPT 54161; principal; 2020-11-14 07:30)
PROC: (CPT 54161; 2020-11-14 07:30)
DX: N47.1 Phimosis (principal); Z08 Encounter for follow-up examination after completed treatment for malignant neoplasm; Z85.51 Personal history of malignant neoplasm of bladder
CPT/HCPCS: 54161; 52000; NC; J0690; J1885; J2405

== ENCOUNTER → 2020-11-29 08:01 | Outpatient (BNVA) | payer OTHER, SELFPAY | PROVIDERS: PCP Family Medicine; Referring Provider Family Medicine; Visit Provider Urology | DX: N47.1 Phimosis (principal); C68.9 Malignant neoplasm of urinary organ, unspecified; Z98.890 Other specified postprocedural states | CPT/HCPCS: 99212; 99213 ==

== ENCOUNTER 2020-12-01 01:48 | Outpatient (CLI) | payer OTHER, SELFPAY ==
--- NOTE | 2020-12-01 06:30 | DI.US_ITS ---
APPROVED REPORT EXAM: Comprehensive 2D, Doppler, and color-flow Echocardiogram Patient Location: Out-Patient Binder Folder Operator: Sharita Guadarrama RDCS (AE) Indications: A Fib, Mitral Regurgitation, Pre operative Other Information Study Quality: Adequate Conclusion Normal left ventricular wall thickness and chamber size. Estimated ejection fraction is 55 to 60%. There are no segmental wall motion abnormalities Right ventricular size is borderline. Normal right ventricular systolic function Left atrium is severely dilated. The right atrium is moderately dilated Trileaflet aortic valve with trace regurgitation Thickened mitral leaflets with moderate regurgitation Structurally normal tricuspid valve with moderate regurgitation. Estimated right ventricular systoli c pressure is 42 mmHg, mild pulmonary hypertension The pulmonic valve is structurally normal Wall motion Left Ventricle The left ventricle is normal size. The left ventricular systolic function is normal. The left ventric ular ejection fraction is within the normal range. There is normal left ventricular wall thickness. T here is normal LV segmental wall motion. There is no ventricular septal defect visualized. LVEF is 55 -60%. Right Ventricle Right ventricle is borderline dilated. The right ventricular systolic function is normal. The RVSP is 42.5 mmHg. Atria Left atrium is severely dilated. Right atrium is moderately dilated. The interatrial septum is intact with no evidence for an atrial septal defect. Aortic Valve The aortic valve is normal in structure. Aortic valve is trileaflet. There is no aortic valvular sten osis. Trace aortic regurgitation. Mitral Valve Thickened mitral leaflets No evidence of mitral valve stenosis. Moderate mitral regurgitation. Tricuspid Valve The tricuspid valve is normal in structure. There is no tricuspid valve stenosis. Moderate tricuspid regurgitation. Pulmonic Valve The pulmonary valve is normal in structure. There is no pulmonic valvular stenosis. There is no pulmo fly valvular regurgitation. Great Vessels The aortic root is normal in size. The ascending aorta is normal in size. Aortic arch is not well vis ualized. The IVC collapses <50% with inspiration. Pericardium There is no pericardial effusion. 2D Dimensions IVSD d PLAX 0.91 cm M: 0.6-1.2 LV Vol A2C d MOD 83.2 mL LVPW d PLAX 0.91 cm M: 0.6 - 1.2 LV Vol A4C d MOD 103.1 mL LVID d PLAX 5.12 cm M: 4.2 - 5.8 LA vol/ BSA A2C s A-L 49.9 mL/m2 LVDs 3.65 cm M: 2.5 - 4.0 LA vol/ BSA A4C s A-L 57.5 mL/m2 Ao Root d 2.60 cm M: 3.1 - 3.7 LA Vol/ BSA Biplane s A-L 53.8 mL/m2 RA Area A4C 27.90 cm2 LA Area A4C s MOD 32.91 cm2 RA Vol/ BSA A4C s A-L 40.1 mL/m2 LA Area A2C s MOD 30.50 cm2 Ao Asc Diam d 3.34 cm M: 2.6 - 3.4 LV EF A4C MOD 50.3 % LV EF Teichholz 53.9 % LV EF A2C MOD 50.8 % LVEF (Hargrove's) 51.27 % M: 52 - 72 LV EF Biplane MOD 51.3 % LV Volume 70.30 mL M: 62 - 150 SV 49.06 mL LV Volume Index 33.00 mL/m2 M: 34 - 74 SV Index 23.03 mL/m2 LV Vol Biplane MOD 95.7 mL FS 28.00 % M-Mode TAPSE 2.35 cm (M/F) >1.7 LV Diastology MV E' medial 0.111 (>0.07 m/s) MV E Vmax 1.16 (0.4-1.3 m/s) LV E/e MED 10.40 (<14) MV E/E' medial 10.43 Aortic Valve LVOT Area 2.89 cm2 AoV Area Vmax 2.22 cm2 LVOT Vmax 1.31 m/s AoV Area/ BSA (Vmax) 1.04 cm2/m2 LVOT Mean Jose David. 0.83 m/s RHYS Mean Jose David. 2.13 cm2 LVOT Peak Grad 6.9 mmHg RHYS Mean Jose David. Index 1.00 cm2/m2 LVOT Mean Grad 3.3 mmHg LVOT VTI 0.222 m LVOT Diam s 1.90 cm AoV Vmax 1.71 m/s Velocity Ratio 0.76 AoV Mean Jose David. 1.12 m/s AoV Peak Grad 11.7 mmHg LVOT SV 64.13 mL AoV Mean Grad 5.7 mmHg AoV VTI 0.307 m AoV Area VTI 2.09 cm2 AoV Area/ BSA (VTI) 0.98 cm/m2 Mitral Valve MV DT 197 (160-240 msec) MR Vmax 4.60 m/s MV PHT 57 msec MR VTI 1.227 m MV Area PHT 3.86 cm2 MR Peak Grad 84.5 mmHg MV VTI 0.339 m MR Mean Grad 60.8 mmHg MV VTI Annulus 0.358 m MR PISA Radius 0.56 cm MV Area VTI 2.01 (4.0-6.0 cm2) MR EROA 0.15 cm2 MR Aliasing Velocity 0.35 m/s MR PISA 1.99 cm2 Pulmonary Valve PV Vmax 1.30 (0.5-1.5 m/s) RVOT Peak Gr. 3.43 mmHg PV Peak Grad 6.8 mmHg RVOT Mean Gr. 1.80 mmHg PV Mean Grad 3.2 mmHg RVOT VTI 0.170 m PV VTI 0.204 m RVOT Vmax 0.93 m/s Tricuspid Valve TR Peak Grad 34.4 mmHg TR Vmax 2.94 m/s RA Pressure 8.00 mmHg RVSP (TR) 42.5 mmHg
== END 2020-12-01 01:49 ==
PROVIDERS: PCP Family Medicine; Visit Provider Surgery
DX: I48.91 Unspecified atrial fibrillation (principal); Z01.810 Encounter for preprocedural cardiovascular examination; I08.1 Rheumatic disorders of both mitral and tricuspid valves
CPT/HCPCS: 93306

== ENCOUNTER → 2020-12-06 09:32 | Outpatient (BNVA) | payer OTHER, SELFPAY | PROVIDERS: PCP Family Medicine; Referring Provider Family Medicine; Visit Provider Surgery | DX: K80.10 Calculus of gallbladder with chronic cholecystitis without obstruction (principal); E11.9 Type 2 diabetes mellitus without complications; I10 Essential (primary) hypertension; Z79.01 Long term (current) use of anticoagulants | CPT/HCPCS: 99213; 99214 ==

== ENCOUNTER 2021-01-02 03:31 | Outpatient (CLI) | payer OTHER, SELFPAY ==
[2021-01-02 12:33] LABS: Source Nasal/Nares
[2021-01-02 18:34] LABS: COVID-19 PCR Negative (Negative)
== END 2021-01-02 03:32 | disposition home or self-care (01) ==
LOC: LBO 03:31
PROVIDERS: PCP Family Medicine; Visit Provider Surgery
DX: Z20.822 Contact with and (suspected) exposure to COVID-19 (principal); Z01.818 Encounter for other preprocedural examination
CPT/HCPCS: 87635

== ENCOUNTER 2021-01-04 10:31 | Inpatient (IN) | payer OTHER, SELFPAY ==
[2021-01-04] VITALS (64 sets, daily range): BP systolic 107–148; BP diastolic 48–100; PULSE 73–140; RESP 13–28; TEMP 36–37.3; O2SAT 88–99
--- NOTE | 2021-01-04 06:25 | W.PM.OP ---
Date of service: 01/04/21 Time of Service: 07:30 Operative Note Operative Note DATE OF PROCEDURE: 01/04/21 PRE-OP DIAGNOSIS: chronic cholecystitis PROCEDURE: Open Cholecystectomy SURGEON: Fatoumata Henderson ASSISTING SURGEON: Stormy Rodriguez CHEMICAL EQUIPMENT CONTROLLER: China Tavares ANESTHESIA TYPE: General LMA/ETT (ASA 3/Carmelo Garcia CRNA) Refer to Anesthesia Record ESTIMATED BLOOD LOSS: 700 PATHOLOGY: other (Gallbladder and contents) COMPLICATIONS: None Patient was transported to: PACU Patient's condition: stable Indications: Mr. Rueda is a pleasant 69-year-old gentleman who has been having bouts of right upper quadrant pain. His abdominal ultrasound showed cholelithiasis and thickening of his gallbladder wall consistent with chronic cholecystitis. He has been on a low-fat diet and has not had any more episodes of pain. He underwent an echocardiogram which showed some mild pulmonary hypertension as well as dilated right atrium. No no aortic valve stenosis and his EF was 55 to 60%. The procedure was discussed with him in detail using a pamphlet with pictures. We discussed Covid testing. Risks, benefits, complications were reviewed with the patient in the office. Complications include but are not limited to bleeding, infection, injury to stomach, small bowel and large bowel, injury to the pancreas, injury to the common bile duct necessitating drainage and referral to tertiary center for repair, bile leak, adverse reactions to the medications, complications of intubation including a sore throat or injury to the uvula, [place], stroke and even . Questions were entertained and answered to her satisfaction and she wished to proceed. No guarantees were given or implied. COVID-19 testing explained to the patient. Reason for test reviewed. Quarantine per state requirements reviewed with patient. Patient understands and agrees to testing. Proceed with laparoscopic cholecystectomy possible intraoperative cholangiogram possibly open. Findings: Contracted, thickened and necrotic gallbladder. Procedure Description: After informed consent was obtained the patient was brought to the operating room, placed in a supine position and monitors were applied. SCDs were applied to his lower extremities and he was placed under general anesthesia and intubated without difficulty. His abdomen was clipped of hair and then prepped and draped in a sterile fashion using ChloraPrep. At this point a timeout was done and the patient's name, date of , procedure type, allergies to medications, metal in her body, antibiotic and DVT prophylaxis, and fire risk was assessed. At this point 1 percent Lidocaine was injected above the umbilicus into the dermis and subcutaneous tissue. A 5 mm incision was made with an 11 blade. The fascia was grasped with cockers and opened sharply. A 5 mm port was then placed under direct visualization. The abdomen was insuflated. A 12 mm port was placed in the subxiphoid area under direct visualization. The liver was inspected and looked nodular. The patient's bed was then turned to the left and the head was brought up. The stomach was noted to be adhered to the liver. I started to bluntly try to remove the stomach from the liver edge. I could not see the Gallbladder due to the adhesions. The liver felt stiff as well. At this point I decided to abort the laparoscopic procedure. The insufflation was stopped. The instruments and sponges were counted. A thornton catheter was placed by nursing at this time. 1% local was then injected about 1.5 inches below the ribs on the right. A 15 cm incision was made with a 10 blade. The 12 mm port site incision was incorporated into the incision. Using cautery the subcutaneous fat was transected down to the anterior rectus sheath. The anterior rectus sheath,rectus muscle and posterior rectus sheath was cut with cautery. I then placed my finger into the abdomen through the 12 mm port site and opened the Transversalis fascia and peritoneum. The liver was inspected. The omentum was swept inferiorly. The stomach was then bluntly dissected away from the liver edge until I was able to see the dome of the Gallbladder. The Gallbladder was contracted and thickened. The dome of the Gallbladder was grasped and the gallbladder was then dissected away from the liver bed using blunt and sharp dissection. It was hard to find a plane between the Gallbladder and the liver along the body of the Gallbladder. Some of the liver was dissected with the posterior wall of the Gallbladder. There were necrotic patches noted on the Gallbladder. Purulent fluid was noted coming from the Gallbladder. Black stones were identified and removed. 1 hour was spend dissecting the gallbladder out down to the neck. As I was dissecting the gallbladder I encountered a larger intrahepatic vein. This was clipped to stop it from bleeding. Once the Gallbladder was mobilzed down to the neck I tried to find the cystic duct. There was so much inflammation that I felt it would be dangerous to continue dissecting blindly. The Gallbladder was amputated at the neck. The Gallbladder was removed from the operating field and placed in formalin. There was some more venous bleeding noted from the liver. 7 sheets of Gelfoam were placed onto the liver bed and pressure was held for 10 minutes. The laps were removed and bleeding had stopped. The cystic artery was identified and clipped. I was then able to see the cystic duct. There was some bile coming from it. A 2-0 proline suture was used to close the duct. No more bile was noted. At this point the operating field was dry. a Rao drain was placed through a small incision 1 inch below the incision and placed in the gallbladder fossa. Next the Peritoneum and Transversalis fascia was closed with a running #1 Vicryl stitch. Exparel mixed with 0.25% Bupivocaine was injected into the fascia. Next the Posterior and anterior sheath were closed with another #1 Vicryl, running suture. Exparel and bupivocaine mixture was again injected into the sheath. The subcutaneous tissue was re-approximated with 2-0 Vicryl interrupted sutures. The skin was re-approximated with skin dino. The skin was cleaned and dried. Dressings were applied to all incisions. The Drain was attached to a bulb. Needle and sponge counts were correct at the end of the case. At this point the patient was woken up, extubated and taken back to recovery in stable condition. There were no immediate complications.
--- NOTE | 2021-01-04 06:28 | W.PM.DSUDISC ---
Discharge Plan Disposition Patient Disposition: HOME Condition: Stable Discharge Details Reason For Visit: Chronic cholecystitis Attending Provider: Fatoumata Henderson Primary Care Provider: Dominic Restrepo Home Meds and New Rx's Prescriptions: New oxycodone 5 mg tablet 5 mg PO Q6H PRNQty: 14 RF: 0 Continued finasteride 5 mg tablet 5 mg PO DAILY Qty: 90 RF: 3 lisinopril 5 mg tablet 5 mg PO DAILY Qty: 90 RF: 3 multivitamin [Daily Vitamin] 1 EACH tablet 2 ea PO DAILY RF: 0 cyanocobalamin (vitamin B-12) [Vitamin B-12] 500 MCG tablet 500 mcg PO DAILY RF: 0 calcium carbonate-vitamin D3 [Calcium 600 + D(3)] 1 EACH tablet 2 ea PO DAILY RF: 0 iron 159 mg (45 mg iron) tablet extended release 159 mg PO DAILY RF: 0 lovastatin 20 mg tablet 20 mg PO DAILY Qty: 90 RF: 3 bupropion HCl 150 mg tablet extended release 24 hr 150 mg PO DAILY 30 Days Qty: 30 RF: 11 metoprolol succinate 50 mg tablet extended release 24 hr 50 mg PO DAILY Qty: 90 RF: 3 diltiazem HCl [Cardizem CD] 240 mg capsule,extended release 24hr 240 mg PO DAILY Qty: 90 RF: 3 Eliquis 5 mg tablet 5 mg PO BID Qty: 180 RF: 4 terazosin 2 mg capsule 2 mg PO DAILY Qty: 90 RF: 3 Farxiga 10 mg tablet 10 mg PO DAILY Qty: 90 RF: 3 metformin [Glucophage] 1,000 mg tablet 1,000 mg PO BID Qty: 180 RF: 4 Vitamin C 1,000 MG tablet extended release 1,000 mg PO DAILY RF: 0 omega-3 fatty acids [Fish Oil Concentrate] 1,000 mg Capsule 2,400 mg PO DAILY RF: 0 Discharge Instructions Additional Instructions: Activity at Home after surgery: 1. Make sure you walk outside at least 4 times per day 2. You should be able to climb a flight of stairs 3. No driving while in pain or taking pain medications 4. No strenuous activity or heavy lifting for 2 weeks (laparoscopic surgery) Diet, Nutrition, & wound healin. Avoid alcohol until after you are recovered from your surgery 2. Make sure to eat plenty of lean protein (meat, fish, eggs, cottage cheese, beans) 3. Eat a variety of fruits and vegetables. Eat plenty of high fiber foods to avoid constipation. 4. Drink plenty of liquids to stay hydrated and avoid constipation Pain Medications: 1. Tylenol 650mg every 6 hours as needed 2. If a narcotic has been prescribed take as directed only for breakthrough pain Medications: Please do not start Eliquis until tomorrow morning For Constipation: 1. Take Milk of Magnesia or MiraLax as needed for constipation Other: 1. You may shower daily. Do not scrub the incisions 2. Do not soak the incisions for 1 week 3. You may alternate ice and heat as needed for pain and swelling Wound Care: 1. Keep the incisions clean and dry Please call our office if you develop: 1. Fevers >101.5 2. Nausea or Vomiting 3. Worsening pain 4. Redness and thick discharge from the wounds If after hours please call the Hospital at and ask to speak to the on-call surgeon Referrals: Fatoumata Henderson MD [ [facility] STAFF PHYSICIAN] - 01/13/21 10:00 am Activity:: No lifting >20 lb x 4 weeks Diet:: As Tolerated Discharge Orders Discharge Orders: Discharge Order (Routine); Ordered 01/04/21 Ordered By: Fatoumata Henderson
[2021-01-04] MEDS: Acetaminophen 500 MG TAB 1000 MG PO (07:03)
[2021-01-04] MEDS: Lactated Ringers 1,000 ML 80 ML IV (07:03)
[2021-01-04] MEDS: AMPICILLIN/SULBACTAM 3 GM in Normal Saline 100 ML IVPB ×3 (07:42→19:18)
--- NOTE | 2021-01-04 08:57 | GB_PTH ---
PATIENT: Eugene Rueda LOC: ICU U#:[id number] AGE/SX: 70/M ROOM: ICU.221 RE01/04/[address]: Fatoumata Henderson MD : 1950 BED: A DIS: 01/07/2021 SPEC #: [id number] RECD: 01/04/21 12:49 STATUS: SOUNeela REQ #: [id number] TAYLOR: 01/04/21 08:[address]: Fatoumata Henderson DEPT: Surgical Specimen RECD BY: Bronwyn Aviles ENTERED: 01/04/21 12:50 SP TYPE: GB OTHR DR: Dominic Restrepo MD Tissues: 1 - GALLBLADDER Procedures: GROSS AND MICRO LEVEL 3 Comments: [id number]
[2021-01-04] MEDS: Gelatin SPONGE 12-7 MM PKT 1 EACH TP ×2 (09:38→09:45)
[2021-01-04] MEDS: Lidocaine 1% Multi-Dose 50 ML VIAL (10:11)
[2021-01-04] MEDS: Bupivacaine 0.25% Pres-Free 30 ML VIAL (10:12)
[2021-01-04 11:17] LABS: HCT 35.6 % (40.0-50.0); HGB 11.3 g/dL (13.5-17.5); MCH 29.2 pg (27.0-33.0); MCHC 31.7 % (32.0-36.0); MPV 8.6 fL (8.0-11.0); Platelet Count 231 10^3/uL (130-400); RBC 3.87 10^6/uL (4.36-5.78); RDW 14.5 % (11.8-14.1); RDW-SD 48.6 fL; WBC 9.64 10^3/uL (4.4-10.8)
--- NOTE | 2021-01-04 14:01 | MCONE_ITS ---
Date of service: 01/04/21 Time of Service: 14:02 Assessment and Plan Assessment and plan (1) Chronic cholecystitis with calculus: Status: Acute Assessment and plan: Status post laparoscopic cholecystectomy today. Postoperative management as per surgery including incentive spirometry patient controlled analgesia and IV fluids and antibiotics. Clear liquid diet advance as per surgeons directions. (2) Atrial fibrillation: Status: Acute Assessment and plan: Hold on his Eliquis until tomorrow morning. Patient can now tolerate oral medications and should resume his Toprol-XL and Cardizem C D. He reports having taken them preoperatively today. I will give him an additional dose of Lopressor 12.5 mg p.o. now to try to keep his atrial fibrillation rate under control. I have also written for as needed IV Lopressor should he have a sustained tachycardia of 120 or greater. If we cannot control his atrial fibrillation rate with combination of oral Lopressor and IV Lopressor then we will start him on a Cardizem drip. Qualifiers: Atrial fibrillation type: unspecified Qualified Code(s): I48.91 - Unspecified atrial fibrillation (3) Obstructive sleep apnea syndrome: Status: Acute Assessment and plan: patient did not bring in his CPAP machine in. I will ask RT to apply CPAP tonight. (4) Diabetes mellitus: Status: Acute Assessment and plan: patient has been resumed on his metformin; will order insulin sensitive sliding scale and monitor glucose AC/HS; he has been ordered clear liquid diet w/ advancement as tolerated. The metformin should be on hold u ntil we are sure he is eating adequately. 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 History of Present Illness History of Present Illness Chief Complaint: medical consult for afib Narrative: 70 yr. old male w/ PMH of chronic cholecystitis for past 6 months, DM II, HTN, depression, BPH, tubular adenoma, PUD, atrial fibrillation (chronic an ticoagulation w/ Eliquis stopped 3 day prior to today's surgery), and urothelial carcinoma of bladder. He underwent laparoscopic cholecystectomy today by Dr. Henderson. Intraoperatively and post operatively he has had rapid atrial fibrillation which has responded to BB (esmolol and lopressor). He is admitted to the ICU overnight to monitor for exacerbations of his atrial fibrillation. Preoperatively he had an echocardiogram normal LV function (LVEF 55-60%), NO RWMA, normal RV function but severe LAE, mod. GEORGE, moderate MR, mod. TR and mild PHTN, normal AV. Review of Systems All systems reviewed & are unremarkable except as noted in HPI and below Cardiovascular Cardiovascular: Denies chest pain, Denies dyspnea and Denies dyspnea on exertion Respiratory Respiratory: Denies chest congestion, Denies cough, Denies excessive phlegm production, Denies dyspnea and Denies dyspnea on exertion Gastrointestinal Gastrointestinal: Reports as per HPI [facility] Medical History Anxiety (08/10/08) Asbestosis (08/10/08) Asthma (07/08/12) pt. denies this Atopic conjunctivitis (10/22/13) Atrial fibrillation Benign prostatic hyperplasia (02/25/13) Bladder cancer Carpal tunnel syndrome Chronic anticoagulation Chronic venous stasis Depressive disorder (02/25/13) Diabetes mellitus (02/25/13) Essential hypertension (06/24/13) Frequency of micturition (01/03/16) Glaucoma (10/22/13) B/L Gross hematuria High grade dysplasia in colonic adenoma Hyperlipidemia (02/25/13) Hypermetropia (10/22/13) Hypogonadism Idiopathic peripheral neuropathy Low back pain (08/10/08) Noncompliance Nuclear senile cataract (10/22/13) Obesity (08/10/08) Aviva-en-y 02/2014 Obstructive sleep apnea syndrome (08/10/08) cpap Olecranon bursitis Osteoarthritis (08/10/08) BILATERAL KNEE replacements Peptic reflux disease (08/10/08) Peripheral neuralgia Phimosis Presbyopia (10/22/13) Pterygium (08/10/08) LEFT EYE Regular astigmatism (10/22/13) Sensorineural hearing loss, bilateral (09/05/17) Tubular adenoma Tubular and tubulovillous adenoma 2011 --suggested repeat 2017 Umbilical hernia (08/18/12) Urgency of urination (03/29/16) Urinary tract infection Urothelial carcinoma Varicose veins of lower extremity (08/10/08) Venous insufficiency (chronic) (peripheral) Surgical History History of transurethral destruction of bladder lesion Ronnell Fundoplication Repair of umbilical hernia Laparoscopic Aviva-en-y surgery for weight loss S/P colonoscopy Haddad-2011- tubular and tubulovillous polyps Henderson2019- sessile serrated with low grade dysplacia, tubullovillous with high grade dysplacia and tubular adenomas S/P partial colectomy (~05/09/20) Status post abdominoplasty (05/23/16) Status post tonsillectomy Status post total knee replacement B/L Vasectomy Family History Mother Cancer Father Heart disease Sister Cancer Sister No problems noted. Brother No problems noted. Brother No problems noted. Brother No problems noted. Son No problems noted. Son No problems noted. Son No problems noted. Social History Smoking/Tobacco Use Status: Never Second Hand Exposure: Yes Smoking risk assessment performed?: Yes Alcohol Intake: current Alcohol Intake frequency: holidays/special occasions only Drug use: Never Substance use type: does not use Details: alcohol: unknown Caregiver/Support person: No Household members: other Details: son Housing: apartment Communication Needs: None Do you need help understanding health information?: Never Pets and animals: No Do you think of yourself as: straight/heterosexual Current gender identity: male What is your relationship status?: How often do you talk on the phone with friends or family?: once per week How often do you get together with friends or relatives?: decline to answer How often do you attend baptism or episcopal services?: decline to answer Do you belong to any clubs or organized social groups?: no Panel score (0-1 are the most socially isolated patients): 0 What type of physical activity do you participate in: walking Duration: 15-30 minutes/day Frequency: 1-2 times per week Velia/Caodaism: Church Special velia needs: No Seatbelt use: always Helmet use: No Drive intox or ride w/intox courier driver: No Do you feel safe at home: Yes Do you feel safe in your relationship?: Yes Exam Narrative Exam Narrative: Elderly bearded male lying in bed currently awake having recovered from anesthesia. HEENT is unremarkable Neck is supple no JVD no thyromegaly normal carotid pulses and irregular rhythm Lungs are clear to auscultation anteriorly with diminished breath sounds at the bases Heart is irregularly irregular no appreciable murmur no thrill or heave Abdomen is MONICA drain in place and multiple bandages over his laparoscopy puncture sites; bowel sounds are present Legs w/out edema; normal pedal pulses Results Last Vital Signs Temp 36.3 C L 01/04/21 11:50 Pulse 81 01/04/21 12:02 Resp 15 01/04/21 12:02 BP 123/67 01/04/21 12:02 Pulse Ox 97 01/04/21 12:02 Labs Result diagrams: 01/04/21 11:12 Labs: Laboratory Results - last 24 hr 01/04/21 01/04/21 08:10 11:12 WBC 9.64 RBC 3.87 L Hgb 11.3 L Hct 35.6 L MCV 92.0 MCH 29.2 MCHC 31.7 L RDW 14.5 H Plt Count 231 MPV 8.6 Patient ABO/Rh A Positive Antibody Screen Negative Crossmatch See Detail
[2021-01-04] MEDS: Metoprolol 12.5 MG TAB PO (15:24)
[2021-01-04] MEDS: POTASSIUM CHLORIDE/D5-0.45NACL 1,000 ML 30 MEQ IV ×2 (16:55→17:00)
[2021-01-04] MEDS: Insulin Aspart 300 UNITS/3 ML PEN SC (16:56)
--- NOTE | 2021-01-04 17:13 | PGE_ITS ---
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 Andrade assisting me with the patient Afib Qualifiers: Atrial fibrillation type: unspecified Qualified Code(s): I48.91 - Unspecified atrial fibrillation (5) Essential hypertension: Status: Acute Subjective Subjective Interval history since last seen: Eguene is sitting up in the chair in the ICU. He is doing well. Pain is controlled. He has no N/V. He is tolerating clear liquids Exam Const General: cooperative, comfortable and no acute distress Orientation: alert and oriented x3 HENMT Head: normocephalic and atraumatic GI Inspection: normal to inspection and other (dressing intact) Palpation: soft and tender (appropriately tender around incision) Auscultation: normal bowel sounds Other: Monica drain in place with bloody drainage Abdomen image: 1. Incision 2. MONICA drain Objective Last Vital Signs Temp 96.8 F L 01/04/21 15:59 Pulse 101 H 01/04/21 16:00 Resp 23 01/04/21 16:20 BP 133/87 01/04/21 16:00 Pulse Ox 97 01/04/21 16:20 Laboratory Results - last 24 hr 01/04/21 01/04/21 08:10 11:12 WBC 9.64 RBC 3.87 L Hgb 11.3 L Hct 35.6 L MCV 92.0 MCH 29.2 MCHC 31.7 L RDW 14.5 H Plt Count 231 MPV 8.6 Patient ABO/Rh A Positive Antibody Screen Negative Crossmatch See Detail
[2021-01-04] MEDS: Metoprolol 5 MG/5 ML VIAL IVP ×2 (21:38→23:42)
[2021-01-05] VITALS (109 sets, daily range): BP systolic 91–148; BP diastolic 48–99; PULSE 69–144; RESP 14–31; TEMP 35.9–37; O2SAT 83–98
[2021-01-05] MEDS: AMPICILLIN/SULBACTAM 3 GM in Normal Saline 100 ML IVPB ×4 (02:15→20:37)
[2021-01-05 07:25] LABS: Abs Immature Grans 0.04 10^3/uL (0.0-0.06); Absolute Basophil Count 0.04 10^3/uL (0.0-0.2); Absolute Eosinophil Count 0.11 10^3/uL (0.0-0.7); Basophils % 0.4; HCT 37.6 % (40.0-50.0); HGB 12.3 g/dL (13.5-17.5); Immature Grans % 0.4; Lymphocytes % 5.4; MCH 29.7 pg (27.0-33.0); MCHC 32.7 % (32.0-36.0); MCV 90.8 fL (80-95); Monocytes % 10.7; Neutrophils % 82.1; Nucleated RBC 0 %; Platelet Count 218 10^3/uL (130-400); RBC 4.14 10^6/uL (4.36-5.78); RDW 14.6 % (11.8-14.1); WBC 11.17 10^3/uL (4.4-10.8)
[2021-01-05 07:26] LABS: Absolute Neutrophil Count 9.17 10^3/uL (1.2-6.7)
--- NOTE | 2021-01-05 07:39 | W.PM.PROGNOT ---
Documented by User: KAY Cole 01/05/21 07:49 Date of Service Date of service: 01/05/21 Time of Service: 07:39 Assessment and Plan Assessment and plan (1) Chronic cholecystitis with calculus: Status: Acute Assessment and plan: POD #1 s/p Open Cholecystectomy Per patient reports pain is well controlled. Per nsg report patient denies pain, however HR becomes elevated at times and returns to baseline following pain meds. Progressing post-op diet as tolerated. Thornton in place, good urine output. Will d/c thornton this morning. Per nsg patient is transferring with minimal assist and the thornton is causing significant irritation and discomfort. He had a circumcision [address] Beavers. They will also apply a moisture barrier cream and assist with hygiene care. Encouraged activity OOB throughout the day. Continue use of incentive spirometer. If HR continues to be stable and pain is well managed, will be able to transfer to med/surg later today. 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 Andrade assisting me with the patient Afib Qualifiers: Atrial fibrillation type: unspecified Qualified Code(s): I48.91 - Unspecified atrial fibrillation (5) Essential hypertension: Status: Acute Subjective Subjective Interval history since last seen: Patient denies any pain at this time, stating he was able to sleep last night. Denies any chest pain or SOB. Per nsg, HR elevated in the night which did not improve with Metoprolol, patient was denying pain at the time. However after receiving pain meds, heart rate returned to 80s and he was able to sleep comfortably. Exam Const General: cooperative and comfortable Orientation: alert and oriented x3 Resp Effort & Inspection: normal respiratory effort, no audible wheezes and no cough GI Inspection: non-distended Palpation: soft, no guarding and tender in the RUQ Other: Mepliex dressing in place. No staining noted of dressing. MONICA drain in place minimal amount of sanguineous drainage. Objective Last Vital Signs Temp 36.5 C 01/05/21 04:04 Pulse 106 H 01/05/21 06:00 Resp 19 01/05/21 06:01 BP 130/81 01/05/21 06:00 Pulse Ox 91 L 01/05/21 06:01 Laboratory Results - last 24 hr 01/04/21 01/04/21 01/05/21 08:10 11:12 06:20 WBC 9.64 11.17 H RBC 3.87 L 4.14 L Hgb 11.3 L 12.3 L Hct 35.6 L 37.6 L MCV 92.0 90.8 MCH 29.2 29.7 MCHC 31.7 L 32.7 RDW 14.5 H 14.6 H Plt Count 231 218 MPV 8.6 9.0 Immature Gran % 0.4 Neutrophils % 82.1 Lymphocytes % 5.4 Monocytes % 10.7 Eosinophils % 1.0 Basophils % 0.4 Nucleated RBC % 0 Absolute Neutrophils 9.17 H Absolute Lymphocytes 0.60 L Absolute Monocytes 1.20 H Absolute Eosinophils 0.11 Absolute Basophils 0.04 Patient ABO/Rh A Positive Antibody Screen Negative Crossmatch See Detail Documented by User: Stormy Rodriguez DO 01/05/21 16:39 Assessment and Plan Assessment and plan (1) Chronic cholecystitis with calculus: Status: Acute Assessment and plan: Patient seen and examined and agree with above. Patient was able to urinate. He was up walking around in the unit. His heart rate went up to the 1 teens. He has had a slight dip in his blood pressure with the he is somewhat distended but has good bowel sounds. He has had minimal output from his MONICA that has been serosanguineous. There is no bile from the MONICA. Otherwise he is doing well and continue with walking and ambulation. I did review the case with Dr. Andrade and as well.
[2021-01-05 07:43] LABS: ALT 45 U/L (16-63); AST 47 U/L (15-37); Albumin 2.8 g/dL (3.4-5.0); Alkaline Phosphatase 66 U/L (46-116); Anion Gap 8.9 mmol/L (3-11); BUN 20 mg/dL (7-18); Bilirubin, Total 0.9 mg/dL (0.2-1.0); CO2 26.1 mmol/L (21.0-32.0); CREATININE 1.3 mg/dL (0.70-1.30); Calcium 8.3 mg/dL (8.5-10.1); Chloride 103 mmol/L (98-107); Estimated GFR 54.42 (mL/min/1.73m2); Glucose 220 mg/dL (74-106); Potassium 4.4 mmol/L (3.5-5.1); Sodium 138 mmol/L (136-145); Total Protein 6.7 g/dL (6.4-8.2)
[2021-01-05] MEDS: Insulin Aspart 300 UNITS/3 ML PEN SC ×3 (08:31→16:50)
[2021-01-05] MEDS: Terazosin 2 MG CAP PO (08:32)
[2021-01-05] MEDS: Lisinopril 5 MG TAB PO (08:32)
[2021-01-05] MEDS: Metoprolol CR 50 MG TABCR PO (08:32)
[2021-01-05] MEDS: Finasteride 5 MG TAB PO (08:32)
[2021-01-05] MEDS: buPROPion-XL 150 MG TABCR PO (08:32)
[2021-01-05] MEDS: dilTIAZem CD 120 MG CAPCR 240 MG PO (08:32)
--- NOTE | 2021-01-05 09:35 | PDOC.CMIN ---
- If Service Date Differs Date of service: 01/05/21 Time of Service: 09:35 Care Management Initial Assess REASON FOR HOSPITALIZATION:: Chronic and acute cholecystitis PAST MEDICAL HISTORY/PAST SURGICAL HISTORY:: Medical History. Anxiety (Inactive 08/10/08). Asbestosis (Inactive 08/10/08). Asthma (Inactive 07/08/12). Atopic conjunctivitis (Inactive 10/22/13). Atrial fibrillation (Resolved). Benign prostatic hyperplasia (Inactive 02/25/13). Bladder cancer (Acute). Carpal tunnel syndrome (Inactive). Chronic anticoagulation. Chronic venous stasis (Resolved). Depressive disorder (Inactive 02/25/13). Diabetes mellitus (Inactive 02/25/13). Essential hypertension (Acute 06/24/13). Frequency of micturition (Inactive 01/03/16). Glaucoma (Inactive 10/22/13). B/L. Gross hematuria (Inactive). Hyperlipidemia (Inactive 02/25/13). Hypermetropia (Inactive 10/22/13). Hypogonadism (Inactive). Idiopathic peripheral neuropathy (Inactive). Low back pain (Acute 08/10/08). Noncompliance (Resolved). Nuclear senile cataract (Inactive 10/22/13). Obesity (Inactive 08/10/08). Aviva-en-y 02/2014. Obstructive sleep apnea syndrome (Inactive 08/10/08). cpap. Olecranon bursitis (Inactive). Osteoarthritis (Inactive 08/10/08). BILATERAL KNEE replacements. Peptic reflux disease (Inactive 08/10/08). Peripheral neuralgia (Inactive). Presbyopia (Inactive 10/22/13). Pterygium (Inactive 08/10/08). LEFT EYE. Regular astigmatism (Inactive 10/22/13). Sensorineural hearing loss, bilateral (Inactive 09/05/17). Tubular adenoma (Inactive). Tubular and tubulovillous adenoma 2011. --suggested repeat 2017. Umbilical hernia (Resolved 08/18/12). Urgency of urination (Inactive 01/03/16). Urinary tract infection (Inactive). Urothelial carcinoma (Acute). Varicose veins of lower extremity (Inactive 08/10/08). Venous insufficiency (chronic) (peripheral) (Acute). Surgical History. Cholecystectomy (02/20/18). 4/28/20: Pt denies. -BR. History of transurethral destruction of bladder lesion (Acute). Ronnell Fundoplication. Repair of umbilical hernia. Laparoscopic. Aviva-en-y surgery. for weight loss. S/P colonoscopy (Acute). Haddad-2011- tubular and tubulovillous polyps. Henderson- 2019- sessile serrated with low grade dysplacia, tubullovillous with high grade dysplacia and tubular adenomas. Status post abdominoplasty (Inactive 05/23/16). Status post tonsillectomy (Inactive). Status post total knee replacement (Inactive). B/L. Vasectomy PREVIOUS FUNCTIONAL STATUS/SOCIAL/FAMILY SUPPORTS:: Eugene lives in [place] with his son. 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 He is independent at baseline. CURRENT FUNCTIONAL STATUS:: Eugene remains in the ICU today as MD continues to adjust medications due to poorly controlled A-fib. CM continues to follow. ADVANCE DIRECTIVES:: None on file. Has patient been provided with info about the portal/API?: No Did the patient sign up for the portal?: No CODE STATUS:: Full Code INSURANCE COVERAGE / FINANCIAL ISSUES:: BCBS/ MCR Replacement- [facility] CURRENT HOME/COMMUNITY SERVICES/EQUIPMENT:: No current equipment or services in the community. PRIMARY CARE PHYSICIAN:: Dominic Restrepo POTENTIAL DISCHARGE NEEDS:: Evaluations for further needs, follow up appointments. PATIENT/FAMILY EDUCATION NEEDS:: Review discharge instructions regarding activity levels and medications, discussion of self care needs including Ask Me Three. ANTICIPATED BARRIERS TO DISCHARGE:: None identified at this time. TRANSPORTATION:: Via private vehicle by family. PLAN:: Anticipate Eugene will return home with no additional services once medically cleared. His son will drive him home via private vehicle. He will follow up with his PCP and discharge plan of care. CM will continue to follow.
[2021-01-05] MEDS: Metoprolol CR 25 MG TABCR PO (09:38)
--- NOTE | 2021-01-05 09:54 | PGE_ITS ---
Date of Service Date of service: 01/05/21 Time of Service: 09:54 Assessment and Plan Assessment and plan (1) Chronic cholecystitis with calculus: Status: Acute Assessment and plan: S/P Laparoscopic cholecystectomy POD#1, Postoperative management as per surgery including incentive spirometry patient controlled analgesia and IV fluids and antibiotics. Clear liquid diet advance as per surgeons directions. STEPAN thornton, encourage ambulation (2) Atrial fibrillation: Status: Acute Assessment and plan: Patient's afib while not significantly elevated, nevertheless is not well controlled. I have increased his Toprol XL to 75 mg daily. His Cardizem CD is already at 240 mg daily. I will titrate his Toprol as tolerated and if needed give him additional lopressor through the day to keep his rates below 100 at rest (ideally below 90) and below 120 bpm w/ activity. If he has sustained rates of 130 or higher then I will put him on diltiazem drip or consider use of digoxin. Resume his Eliquis tonight. He had a brief run of VT this morning which was asymptomatic. For now we will just monitor. He has had no ischemic symptoms. if recurrent VT then will cycle troponin levels and check echo. Potassium level is ok at 4.4. I will check his Mg level Qualifiers: Atrial fibrillation type: unspecified Qualified Code(s): I48.91 - Unspecified atrial fibrillation (3) Obstructive sleep apnea syndrome: Status: Acute Assessment and plan: patient did not bring in his CPAP machine in. RT supplying CPAP for patient until his own unit is brought in. 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 with adjustments in Toprol XL as noted above Subjective Subjective Interval history since last seen: Patient denies any dyspnea or chest pain. No flatus nor BM yet. No nausea or vomiting. Some mild to moderate abdominal discomfort. Afib rate is mildly increased in the low 100's. He had his Cardizem CD and his Toprol XL. I am increasing his Toprol XL to 75 mg daily. Nursing is going to get him out of bed and walk him. He will also get his thornton out this a.m. His MONICA drain has only 20 mL output overnight (65 mL yesterday). He should resume his Eliquis tonight if ok w/ surgical service. Exam Narrative Exam Narrative: Obese white male sitting up in the chair watching TV. Alert, oriented x 3 Lungs: clear but w/ some diminished BS at bases (patient was encouraged to use his I.S., he did several inhalations for me w/ over 1500 mL, nearly 2000 mL on the last try) Heart: Irregularly irregular and slightly fast Abdomen: distended, mildly tender; diminished bowel sounds Objective Last Vital Signs Temp 35.9 C L 01/05/21 09:08 Pulse 103 H 01/05/21 09:08 Resp 23 01/05/21 09:08 BP 126/71 01/05/21 09:08 Pulse Ox 97 01/05/21 09:08 Laboratory Results - last 24 hr 01/04/21 01/05/21 01/05/21 11:12 06:20 06:20 WBC 9.64 11.17 H RBC 3.87 L 4.14 L Hgb 11.3 L 12.3 L Hct 35.6 L 37.6 L MCV 92.0 90.8 MCH 29.2 29.7 MCHC 31.7 L 32.7 RDW 14.5 H 14.6 H Plt Count 231 218 MPV 8.6 9.0 Immature Gran % 0.4 Neutrophils % 82.1 Lymphocytes % 5.4 Monocytes % 10.7 Eosinophils % 1.0 Basophils % 0.4 Nucleated RBC % 0 Absolute Neutrophils 9.17 H Absolute Lymphocytes 0.60 L Absolute Monocytes 1.20 H Absolute Eosinophils 0.11 Absolute Basophils 0.04 Sodium 138 Potassium 4.4 Chloride 103 Carbon Dioxide 26.1 Anion Gap 8.9 BUN 20 H Creatinine 1.3 Estimated GFR/1.73 m2 54.42 Glucose 220 H Calcium 8.3 L Total Bilirubin 0.9 AST 47 H ALT 45 Alkaline Phosphatase 66 Total Protein 6.7 Albumin 2.8 L
[2021-01-05 10:25] LABS: Magnesium 1.6 mg/dL (1.8-2.4)
--- NOTE | 2021-01-05 11:13 | PHACLINREV_ITS ---
Pharmacy Admission Review - Admission Clinical Review (Last Reviewed 01/04/21 @ 14:54 by Perez Andrade) Chronic cholecystitis with calculus (Acute) Obstructive sleep apnea syndrome (Acute 08/10/08) Diabetes mellitus (Acute 02/25/13) Atrial fibrillation (Acute) Essential hypertension (Acute 06/24/13) No Known Allergies Allergy (Verified 01/04/21 06:22) Height 5 ft 9 in Weight 103 kg - Comments Comments/Follow Ups: admitted due to perioperative AFib - Renal Dosing Renal Dosing: BUN 20 mg/dL (7-18) H 01/05/21 06:20 Creatinine 1.3 mg/dL (0.70-1.30) 01/05/21 06:20 Medications needing adjustments: Reviewed List of meds needing interventions: eCrCL 61.1 ml/min - meds ok - Anticoagulation Anticoagulation: Hgb 12.3 g/dL (13.5-17.5) L 01/05/21 06:20 Hct 37.6 % (40.0-50.0) L 01/05/21 06:20 Plt Count 218 10^3/uL (130-400) 01/05/21 06:20 Creatinine 1.3 mg/dL (0.70-1.30) 01/05/21 06:20 DVT Prohphylaxis: Reviewed Medications: Enoxaparin Therapeutic Anticoagulation: Intervened (Apixipan to be restarted this evening - will notify MD to place order) - Opiate Usage Evaluate Pain Scale/Pains Meds: Reviewed (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) Scheduled Bowel Reg ordered if on Opiates?: Yes (PRN orders) - Relevant Labs Sodium 138 mmol/L (136-145) 01/05/21 06:20 Potassium 4.4 mmol/L (3.5-5.1) 01/05/21 06:20 Chloride 103 mmol/L (98-107) 01/05/21 06:20 Magnesium 1.6 mg/dL (1.8-2.4) L 01/05/21 06:20 Electrolytes, C-Reactive P, ESR: Intervened (Mag 1.6 -- repletion hasn't been ordered yet, will notify MD) - DM Control DM Control: Glucose 220 mg/dL (74-106) H 01/05/21 06:20 Finger Stick Blood Glucose 224 Finger Stick Blood Glucose 224 Finger Stick Blood Glucose 224 Insulin Dosing: Reviewed (aspart per SS (on multiple ODAs at home)) - Heart Failure/FL EF%, FRANCHESCA's, B-Blockers, Diuretics: Reviewed - BP Control BP Control: Blood Pressure [Left Arm] 122/71 Blood Pressure [Left Arm] 127/78 Blood Pressure 126/71 Blood Pressure 130/81 Blood Pressure 122/71 Blood Pressure 114/72 Blood Pressure 127/78 Blood Pressure 114/72 Blood Pressure 148/92 Blood Pressure 127/78 If elevated: Reviewed - Qtc Review If Elevated: N/A - IV to PO Switch IV Medications: Reviewed - Home Meds Home Med List reviewed: Reviewed Relevent Home Meds Not ordered & why?: Apixiban, calcium, b12, iron, mvi, fish oil, vit C - Current meds Current Medication Order Review: Reviewed - Comments Comments/Follow Ups: HR goal of <90 -- metoprolol increased with PRN ordered, consider dilt gtt vs digoxin if HR >130, will resume apixiban tonight, hold metformin until reusmes regular diet
[2021-01-05] MEDS: Normal Saline Flush 10 ML SYR IV ×2 (12:54→16:52)
--- NOTE | 2021-01-05 13:01 | IN_ITS ---
Date of service: 01/05/21 Time of Service: 13:01 PT Notes Visit Reasons: CHRONIC AND ACUTE CHOLECYSTITIS Physical Therapy Inpatient Initial Evaluation Date: 01/06/2021 Referring Doctor: Perez Andrade MD PT Orders: PT CONSULT: Safety consult for D/C Precautions: Fall. Standard. Activity as tolerated. Patient Profile/Admitting Diagnosis: Eugene is a 70-year-old female with diagnosis of chronic cholecystitis with calculus and is status post open cholecystectomy on postoperative day 1. PMHX: Medical History Anxiety (08/10/08) Asbestosis (08/10/08) Asthma (07/08/12) pt. denies this Atopic conjunctivitis (10/22/13) Atrial fibrillation Benign prostatic hyperplasia (02/25/13) Bladder cancer Carpal tunnel syndrome Chronic anticoagulation Chronic venous stasis Depressive disorder (02/25/13) Diabetes mellitus (02/25/13) Essential hypertension (06/24/13) Frequency of micturition (01/03/16) Glaucoma (10/22/13) B/L Gross hematuria High grade dysplasia in colonic adenoma Hyperlipidemia (02/25/13) Hypermetropia (10/22/13) Hypogonadism Idiopathic peripheral neuropathy Low back pain (08/10/08) Noncompliance Nuclear senile cataract (10/22/13) Obesity (08/10/08) Aviva-en-y 02/2014 Obstructive sleep apnea syndrome (08/10/08) cpap Olecranon bursitis Osteoarthritis (08/10/08) BILATERAL KNEE replacements Peptic reflux disease (08/10/08) Peripheral neuralgia Phimosis Presbyopia (10/22/13) Pterygium (08/10/08) LEFT EYE Regular astigmatism (10/22/13) Sensorineural hearing loss, bilateral (09/05/17) Tubular adenoma Tubular and tubulovillous adenoma 2011 --suggested repeat 2017 Umbilical hernia (08/18/12) Urgency of urination (01/03/16) Urinary tract infection Urothelial carcinoma Varicose veins of lower extremity (08/10/08) Venous insufficiency (chronic) (peripheral) Surgical History History of transurethral destruction of bladder lesion Ronnell Fundoplication Repair of umbilical hernia Laparoscopic Aviva-en-y surgery for weight loss S/P colonoscopy Haddad-2011- tubular and tubulovillous polyps Henderson- 2019- sessile serrated with low grade dysplacia, tubullovillous with high grade dysplacia and tubular adenomas S/P partial colectomy (~05/09/20) Status post abdominoplasty (05/23/16) Status post tonsillectomy Status post total knee replacement B/L Vasectomy Social History/Home Situation: Lives with son in a apartment with 14 steps to enter with rails on both sides. Independent with all aspects of ADL performance prior to surgery. No AD. No falls in the past 12 months. Equipment Owned/DME: None Subjective: Agreeable to PT consult. Pleasant and cooperative. Reports minimal incisional pain during sit to supine and sit to stand movement transition. Objective: General Observation: Supine in bed. Telemetry monitoring in place. Romero catheter in place. PEG DRIVER pump in place. Mepilex Ag over surgical incision. Mental Status: Alert and oriented x4 Pain: 2?3/10 incisional pain, resolves with rest Vital Signs: Oxygen saturation low of 88% and high of 94% on room air during ambulation activity ROM: Right Upper Extremity: Shoulder Flexion WFL. Shoulder abduction WFL. Elbow flexion WFL. Wrist flexion WFL. Opening and closing of hand WFL. Left Upper Extremity: Shoulder Flexion WFL. Shoulder abduction WFL. Elbow flexion WFL. Wrist flexion WFL. Opening and closing of hand WFL. Right Lower Extremity: Hip flexion WFL. Hip abduction WFL. Knee flexion WFL. Ankle dorsiflexion WFL. Ankle plantarflexion WFL. Left Lower Extremity: Hip flexion WFL. Hip abduction WFL. Knee flexion WFL. Ankle dorsiflexion WFL. Ankle plantarflexion WFL. Strength: Right Upper Extremity: Shoulder flexors 5/5. Shoulder abductors 5/5. Elbow flexors 5/5. Elbow extensors 5/5. Customer Assistance Associate strong. Left Upper Extremity: Shoulder flexors 5/5. Shoulder abductors 5/5. Elbow flexors 5/5. Elbow extensors 5/5. Customer Assistance Associate strong. Right Lower Extremity: Hip flexors 4/5. Hip abductors 4/5. Knee flexors 5/5. Knee extensors 4/5. Ankle dorsiflexors 5/5. Ankle plantarflexors 5/5. Left Lower Extremity:Hip flexors 4/5. Hip abductors 4/5. Knee flexors 5/5. Knee extensors 4/5. Ankle dorsiflexors 5/5. Ankle plantarflexors 5/5. Sensation: Intact as to pain and pressure on bilateral lower extremities. Bed Mobility/Transfers: Rolling standby assist Supine to sit standby assist with HOB at 30 degrees Sit to supine standby assist Sit to stand contact-guard assist Stand to sit contact-guard assist Bed to chair contact-guard assist Chair to bed contact-guard assist Gait: Guided patient through level surface ambulation of up to 150 feet using front wheeled walker with WBAT on BLE requiring only contact-guard assist and standby assist of practical nursing instructor Caitlin and ICU nurse Magdalena for line management and overall safety. Roxane decreased due to shortness of breath and lines, gait pattern otherwise unremarkable. Stairs: Good on safe technique with negotiating 18 x 4 inch steps and 12 x 6 inch steps while holding onto bilateral rails with step over step pattern requiring only standby assist of PT and a line management of student nurse Yuki. Increase in shortness of breath noted that resolved with rest, oxygen saturation ranged from 88% through 94% on room air. Balance: Static Sitting: Normal Dynamic Sitting: Normal Static Standing: Good Dynamic Standing: Fair Special Tests: Mobility Limitations Standardized Measure [facility] AM-PAC 6 clicks Basic Mobility Inpatient Short Form: Raw Score: 18 CMS Score: 47% deficit Informed Consent/Education: Patient instructed in purpose of PT consult and plan of care. Assessment: Patient presents with decreased activity tolerance exhibiting shortness of breath with ambulation and stair negotiation activities that resolve with rest. Patient require the use of front wheeled walker for mobility ADL performance to minimize fatigue and postoperative pain. Patient's son will be available 29/04 when patient goes home to recover for any kind of assistance needed. Patient will benefit from home health PT services in order to progress mobility level using least restrictive assistive ambulatory device, assess home safety, identify additional equipment needs, and establish a functional maintenance program that will increase ability of patient to remain at home. Patient presents with clinical signs and symptoms consistent with current/admitting diagnoses that have resulted to mobility limitations, gait instability, generalized weakness, and impairment of motor control as demonstrated by the following impairment level findings: 1. Impaired standing balance 2. Impaired activity tolerance 3. Postoperative incisional pain with movement transitions Impairments are contributing to the following functional limitations: 1. Inability to safely ambulate without assistive device 2. Increase completion time for mobility ADL performance Patient is assessed as a [id number] moderate complexity based on the following: History: 70-year-old male with impairment level findings, functional limitations, and past medical history as indicated above Examination: Demonstrable impairment in strength, balance, and mobility level with underlying impairments and functional limitations as documented above Presentation: Evolving Decision Makin moderate complexity Goals: Goals X1 week 1. Supine-Sit independent 2. Sit-Supine independent 3. Sit-Stand independent 4. Stand-Sit independent 5. Bed-Chair independent 6. Chair-Bed independent 7. Independent gait on level surface without an assistive device for at least 300 feet without report of pain nor dyspnea 8. Independent stair negotiation while holding onto bilateral rails for at least 15 steps without report of pain nor dyspnea 9. Good static and dynamic standing balance/tolerance Plan of Care/Treatment Plan: 1-2x/day, 7 days/week x 1 week. Plan of care has been reviewed with the CRUSHER PLANT OPERATOR providing the service under Physical Therapy direction. Initiate Physical Therapy intervention for strengthening, bed mobility, transfers, gait, stairs, balance training, use of assistive device. DISCHARGE RECOMMENDATIONS: Patient will benefit from home health PT services in order to progress mobility level using least restrictive assistive ambulatory device, assess home safety, identify additional equipment needs, and establish a functional maintenance program that will increase ability of patient to remain at home. We will continue to assess need for an AD. TREATMENT CODE/TIME: 9 six 2 x 25 minutes, 93745 x 12 minutes beginning at 13:01 PM. Thank you for the opportunity to participate in the care of this patient. Kenia Giordano PT, DPT, CLT [facility] [place], [place]
[2021-01-05] MEDS: Normal Saline 500 ML 250 ML IV (19:30)
[2021-01-05] MEDS: Enoxaparin 40 MG/0.4 ML SYR SC (20:37)
[2021-01-05] MEDS: POTASSIUM CHLORIDE/D5-0.45NACL 1,000 ML 80 MEQ IV (20:40)
[2021-01-06] VITALS (51 sets, daily range): BP systolic 96–129; BP diastolic 47–95; PULSE 58–119; RESP 16–35; TEMP 36.2–37.4; O2SAT 91–97
[2021-01-06] MEDS: AMPICILLIN/SULBACTAM 3 GM in Normal Saline 100 ML IVPB ×2 (02:00→09:02)
--- NOTE | 2021-01-06 07:34 | PGE_ITS ---
Date of Service Date of service: 01/06/21 Time of Service: 07:35 Assessment and Plan Assessment and plan (1) Chronic cholecystitis with calculus: Status: Acute Assessment and plan: POD #2 s/p Open Cholecystectomy Pain is currently well controlled. Progressing post-op diet as tolerated. Urinating without difficulty. Encouraged activity OOB throughout the day. Continue use of incentive spirometer. 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 Andrade assisting me with the patient Afib Qualifiers: Atrial fibrillation type: unspecified Qualified Code(s): I48.91 - Unspecified atrial fibrillation (5) Essential hypertension: Status: Acute Subjective Subjective Interval history since last seen: Patient reports that he is doing very well, 1/10PL. He reports that he is passing flatus, No BM. Urinating without difficulty. Exam Const General: cooperative, healthy appearing and comfortable Orientation: alert and oriented x3 Resp Effort & Inspection: normal respiratory effort, no audible wheezes and no cough GI Inspection: normal to inspection and non-distended Palpation: soft, no guarding and tender in the RUQ Objective Last Vital Signs Temp 36.3 C L 01/06/21 04:00 Pulse 78 01/06/21 06:00 Resp 17 01/06/21 06:00 BP 106/61 01/06/21 06:00 Pulse Ox 93 01/06/21 06:00 Laboratory Results - last 24 hr 01/05/21 01/05/21 06:20 06:20 Sodium 138 Potassium 4.4 Chloride 103 Carbon Dioxide 26.1 Anion Gap 8.9 BUN 20 H Creatinine 1.3 Estimated GFR/1.73 m2 54.42 Glucose 220 H Calcium 8.3 L Magnesium 1.6 L Total Bilirubin 0.9 AST 47 H ALT 45 Alkaline Phosphatase 66 Total Protein 6.7 Albumin 2.8 L
[2021-01-06] MEDS: buPROPion-XL 150 MG TABCR PO (08:24)
[2021-01-06] MEDS: dilTIAZem CD 120 MG CAPCR 240 MG PO (08:24)
[2021-01-06] MEDS: Finasteride 5 MG TAB PO (08:24)
[2021-01-06] MEDS: Terazosin 2 MG CAP PO (08:24)
[2021-01-06] MEDS: Insulin Aspart 300 UNITS/3 ML PEN SC ×3 (08:25→17:38)
[2021-01-06] MEDS: Lisinopril 5 MG TAB 2.5 MG PO (08:26)
[2021-01-06] MEDS: Metoprolol CR 50 MG TABCR 75 MG PO (08:26)
--- NOTE | 2021-01-06 09:47 | PT.INTREAT ---
Date of service: 01/06/21 Time of Service: 09:00 PT Notes Visit Reasons: CHRONIC AND ACUTE CHOLECYSTITIS Inpatient Physical Therapy Treatment Note [facility] Date: 01/06/2021 PRECAUTIONS: Fall SUBJECTIVE: Eugene states that he is feeling pretty good today. He is pleasant and agreeable to participating in PT. In the afternoon Eugene reports feeling fatigued. OBJECTIVE: PAIN: No c/o pain BED MOBILITY/TRANSFERS Rolling L/R: Discussed log rolling procedures and benefits. Will review again tomorrow morning. Supine-sit: S Sit-supine: S Sit-stand: S Stand-sit: S Bed-Chair: S Chair-bed: S GAIT Assistive Device: FWW No AD in a.m.; SPC in p.m. Weight bearing: Full Assist: S with FWW SBA without AD in a.m.; SBA with SPC in p.m. Distance: 200' with FWW 200' without AD in a.m.; 300' with SPC in p.m. Deviation: Standing rest x2 due to SOB with use of FWW and without AD in a.m.; multiple standing rests t/o due to SOB in p.m. THEREX: Patient was instructed in a LE and UE strengthening and balance retraining program, completed in a standing position, as per flow sheet. ASSESSMENT: Patient tolerated session well, without complaint. He demonstrates SOB with activity, requiring seated/standing rests for recovery. He was able to tolerate a progression in gait distance with FWW, then SPC, as well as without assistive device support, requiring SBA-S. PLAN: Continue with gait training and global strengthening and conditioning for improved activity tolerance. Review log rolling tomorrow morning. TREATMENT CODE/TIME: Session 1: 40 minutes; 34970 x2, 96450 (09:00) Session 2: 20 minutes; 59345 (14:05)
[2021-01-06] MEDS: MAGNESIUM SULFATE 2 GM/50 ML BAG IVPB (09:54)
--- NOTE | 2021-01-06 11:49 | CMPROGNOTE_ITS ---
Care Management Progress Note S/O: Per MD, MONICA drain remains in place with minimal discharge. He is up and ambulating with staff, utilizing a FWW. He was dozing in his chair when CM attempted to meet him, FRACISCO Nichols reported anticipating that Eugene would discharge tomorrow. CM continues to follow. A: 70 year old male admitted to [facility] 01/04/21 for Afib post surgically P: Anticipate Eugene will return home with no additional services once medically cleared. His son will drive him home via private vehicle. He will follow up with his PCP and discharge plan of care. CM will continue to follow.
--- NOTE | 2021-01-06 12:57 | PGE_ITS ---
Date of Service Date of service: 01/06/21 Time of Service: 12:57 Assessment and Plan Assessment and plan (1) Chronic cholecystitis with calculus: Status: Acute Assessment and plan: S/P Laparoscopic cholecystectomy POD#2 (01/04/2021), Postoperative management as per surgery including incentive spirometry patient controlled analgesia and IV fluids and antibiotics. Now tolerating a regular diet. We will resume his Metformin but continue to monitor blood sugars before meals and at bedtime and cover with sliding scale. Transfer out to the medical/surgical floor with continued telemetry monitoring. (2) Atrial fibrillation: Status: Acute Assessment and plan: Continue Toprol-XL 75 mg daily and Cardizem CD 240 mg daily. Resume Eliquis 5 mg p.o. twice daily beginning tonight. DC enoxaparin. Continue telemetry monitoring. Qualifiers: Atrial fibrillation type: unspecified Qualified Code(s): I48.91 - Unspecified atrial fibrillation (3) Obstructive sleep apnea syndrome: Status: Acute Assessment and plan: Patient still has not had his CPAP brought in. He is refusing to use her CPAP. We will just monitor his oxygen level overnight and supply him with oxygen as needed. (4) Diabetes mellitus: Status: Acute Assessment and plan: Resume his home dose of Metformin. Use sliding scale insulin as needed for coverage of elevated sugars. 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 with adjustments in Toprol XL as noted above Subjective Subjective Interval history since last seen: Patient has no complaints. He denies any chest pain or pressure or shortness of breath. He is passing flatus but no bowel movement yet. No drainage from the MONICA drain overnight. We will get a restart his apixaban this evening and discontinue the enoxaparin. Patient has been working with nursing staff as well as physical therapy ambulating with the use of a walker. Nursing reports that he is gotten up and gone all the way out the hallway and around the [facility] nursing floor. I think once his MONICA drain comes out and he is having bowel movements he will be ready for discharge. Per my discussion with Dr. Henderson patient is ready for transfer to the medical/surgical floor. A. fib rate is well controlled. Continue his current treatment with the increased dose of Toprol-XL 75 mg daily and Cardizem CD 240 mg daily. Lisinopril dose was reduced down to 2.5 mg yesterday to allow enough blood pressure for the increased Toprol dose. He should remain on telemetry on transfer out to the medical/surgical floor. Exam Narrative Exam Narrative: Obese white male sitting up in his chair having finished his lunch taking a brief nap. He awakens easily he is alert and oriented person place time circumstance and no discomfort other than some mild abdominal distention. No nausea or vomiting. He tolerated his diet quite well. Lungs are clear to auscultation anteriorly posteriorly has some diminished breath sounds at the bases. Heart is irregularly irregular but at a controlled rate. Abdomen is distended firm with minimal tenderness to palpation but no guarding. He has bowel sounds throughout all 4 quadrants. Romero catheter has since been removed. Objective Last Vital Signs Temp 37.4 C 01/06/21 08:50 Pulse 70 01/06/21 10:03 Resp 24 01/06/21 10:03 BP 101/47 L 01/06/21 10:03 Pulse Ox 93 01/06/21 08:00
[2021-01-06 13:37] LABS: Anion Gap 9.6 mmol/L (3-11); BUN 35 mg/dL (7-18); CO2 24.4 mmol/L (21.0-32.0); CREATININE 1.7 mg/dL (0.70-1.30); Calcium 8.1 mg/dL (8.5-10.1); Chloride 100 mmol/L (98-107); Estimated GFR 39.93 (mL/min/1.73m2); Glucose 260 mg/dL (74-106); Magnesium 2.3 mg/dL (1.8-2.4); Potassium 3.9 mmol/L (3.5-5.1); Sodium 134 mmol/L (136-145)
[2021-01-06] MEDS: Lovastatin 20 MG TAB PO (20:36)
[2021-01-06] MEDS: Apixaban 5 MG TAB PO (20:36)
[2021-01-07] VITALS (10 sets, daily range): BP systolic 136; BP diastolic 98; PULSE 86–116; RESP 19–26; TEMP 36.1; O2SAT 97
[2021-01-07] MEDS: traMADol 50 MG TAB PO (03:50)
[2021-01-07] MEDS: Normal Saline Flush 10 ML SYR IV (08:38)
[2021-01-07] MEDS: Finasteride 5 MG TAB PO (08:39)
[2021-01-07] MEDS: metFORMIN 500 MG TAB 1000 MG PO (08:39)
[2021-01-07] MEDS: buPROPion-XL 150 MG TABCR PO (08:39)
[2021-01-07] MEDS: Terazosin 2 MG CAP PO (08:40)
[2021-01-07] MEDS: Apixaban 5 MG TAB PO (08:41)
[2021-01-07] MEDS: dilTIAZem CD 120 MG CAPCR 240 MG PO (08:41)
[2021-01-07] MEDS: Insulin Aspart 300 UNITS/3 ML PEN SC ×2 (08:42→12:21)
[2021-01-07] MEDS: Metoprolol CR 50 MG TABCR 75 MG PO (08:43)
[2021-01-07] MEDS: Lisinopril 5 MG TAB 2.5 MG PO (08:43)
--- NOTE | 2021-01-07 08:56 | W.PM.PROGNOT ---
Subjective Subjective Interval history since last seen: HR up to 120 while sitting in a chair, asymptomatic. Just got morning meds. HR 98 right now. Actually in medsurg status. Objective Last Vital Signs Temp 36.1 C L 01/07/21 06:20 Pulse 116 H 01/07/21 06:20 Resp 22 01/07/21 06:20 BP 136/98 H 01/07/21 06:20 Pulse Ox 97 01/07/21 06:20 Laboratory Results - last 24 hr 01/06/21 13:15 Sodium 134 L Potassium 3.9 Chloride 100 Carbon Dioxide 24.4 Anion Gap 9.6 BUN 35 H D Creatinine 1.7 H Estimated GFR/1.73 m2 39.93 Glucose 260 H Calcium 8.1 L Magnesium 2.3
--- NOTE | 2021-01-07 10:58 | PGE_ITS ---
Date of Service Date of service: 01/07/21 Time of Service: 11:00 Assessment and Plan Assessment and plan (1) Chronic cholecystitis with calculus: Status: Acute Assessment and plan: POD #3 s/p open cholecystectomy MONICA with minimal serosanguinous discharge. 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 I will send him home on the new doses. Follow up with Dr. Goel in 7-10 days Qualifiers: Atrial fibrillation type: unspecified Qualified Code(s): I48.91 - Unspecified atrial fibrillation (5) Essential hypertension: Status: Acute Assessment and plan: BP has been stable on increased dose of Metoprolol Subjective Subjective Interval history since last seen: Eugene is doing very well. He is eating without pain or Nausea. He was able to sleep last night His MONICA has had minimal serosanguinous discharge Exam Const General: cooperative, comfortable and no acute distress Orientation: alert and oriented x3 HENMT Head: normocephalic and atraumatic Resp Effort & Inspection: normal respiratory effort Auscultation: clear to auscultation bilaterally Cardio Rate: regular rate Rhythm: regular rhythm Heart Sounds: no gallops, no murmurs and no rubs GI Inspection: incision (c/d/i) Palpation: soft, no hepatosplenomegaly and tender (mild tenderness around the incision) Auscultation: normal bowel sounds Objective Last Vital Signs Temp 97.0 F L 01/07/21 06:20 Pulse 116 H 01/07/21 06:20 Resp 22 01/07/21 06:20 BP 136/98 H 01/07/21 06:20 Pulse Ox 97 01/07/21 06:20 Laboratory Results - last 24 hr 01/06/21 13:15 Sodium 134 L Potassium 3.9 Chloride 100 Carbon Dioxide 24.4 Anion Gap 9.6 BUN 35 H D Creatinine 1.7 H Estimated GFR/1.73 m2 39.93 Glucose 260 H Calcium 8.1 L Magnesium 2.3
--- NOTE | 2021-01-07 11:06 | DSE_ITS ---
Date of service: 01/07/21 Time of Service: 11:06 DS: Diagnosis Discharge Diagnosis (1) Chronic cholecystitis with calculus: Status: Acute (2) Obstructive sleep apnea syndrome: Status: Acute (3) Diabetes mellitus: Status: Acute (4) Atrial fibrillation: Status: Acute (5) Essential hypertension: Status: Acute Discharge Plan Disposition Patient Disposition: HOME Condition: Stable Discharge Details Reason For Visit: CHRONIC AND ACUTE CHOLECYSTITIS Admit Date/Time: 01/04/21 10:31 Admit Provider: Fatoumata Henderson Attending Provider: Fatoumata Henderson Primary Care Provider: Dominic Restrepo Hospital Course Hospital Course: Eugene was admitted on Saturday after undergoing an open cholecystectomy. His Gallbladder was contracted and chronically inflammed. The stomach and duodenum were adhered to the Gallbladder. He has done very well after surgery. His Heart Rate was very labile jumping into the 140's. I consulted Dr. Andrade who adjusted his medications to control his HR a little bit better. I appreciate his assistance. Eugene was advanced to a regular diet by POD#2. His MONICA was putting out sanguinous fluid the first 24 hours and then it became moire serous. HIs Eliquis was restarted after 48 hours. There was no increase in output from the MONICA so the MONICA was removed. Patient will be discharged home today on a regular diabetic diet. Home Meds and New Rx's Prescriptions: New oxycodone 5 mg tablet 5 mg PO Q6H PRNQty: 14 RF: 0 metoprolol succinate 50 mg Tablet Extended Release 24 Hr 75 mg PO DAILY 30 Days Qty: 45 RF: 0 acetaminophen [Tylenol] 325 mg Tablet 650 mg PO Q6H PRN PRNQty: 30 RF: 0 polyethylene glycol 3350 17 gram Powder In Packet 17 g PO DAILY PRN PRN (Reason: Constipation) Qty: 100 RF: 0 Continued finasteride 5 mg tablet 5 mg PO DAILY Qty: 90 RF: 3 lisinopril 5 mg tablet 5 mg PO DAILY Qty: 90 RF: 3 multivitamin [Daily Vitamin] 1 EACH tablet 2 ea PO DAILY RF: 0 cyanocobalamin (vitamin B-12) [Vitamin B-12] 500 MCG tablet 500 mcg PO DAILY RF: 0 calcium carbonate-vitamin D3 [Calcium 600 + D(3)] 1 EACH tablet 2 ea PO DAILY RF: 0 iron 159 mg (45 mg iron) tablet extended release 159 mg PO DAILY RF: 0 lovastatin 20 mg tablet 20 mg PO DAILY Qty: 90 RF: 3 bupropion HCl 150 mg tablet extended release 24 hr 150 mg PO DAILY 30 Days Qty: 30 RF: 11 diltiazem HCl [Cardizem CD] 240 mg capsule,extended release 24hr 240 mg PO DAILY Qty: 90 RF: 3 Eliquis 5 mg tablet 5 mg PO BID Qty: 180 RF: 4 terazosin 2 mg capsule 2 mg PO DAILY Qty: 90 RF: 3 Farxiga 10 mg tablet 10 mg PO DAILY Qty: 90 RF: 3 Vitamin C 1,000 MG tablet extended release 1,000 mg PO DAILY RF: 0 omega-3 fatty acids [Fish Oil Concentrate] 1,000 mg Capsule 2,400 mg PO DAILY RF: 0 Changed metformin [Glucophage] 1,000 mg tablet 1,000 mg PO DAILY Qty: 180 RF: 4 Discontinued metoprolol succinate 50 mg tablet extended release 24 hr 50 mg PO DAILY Qty: 90 RF: 3 Discharge Instructions Additional Instructions: Activity at Home after surgery: 1. Make sure you walk outside at least 4 times per day 2. You should be able to climb a flight of stairs 3. No driving while in pain or taking pain medications 4. No strenuous activity or heavy lifting for 4 weeks Diet, Nutrition, & wound healin. Avoid alcohol until after you are recovered from your surgery 2. Make sure to eat plenty of lean protein (meat, fish, eggs, cottage cheese, beans) 3. Eat a variety of fruits and vegetables. Eat plenty of high fiber foods to avoid constipation. 4. Drink plenty of liquids to stay hydrated and avoid constipation Pain Medications: 1. Tylenol 650mg every 6 hours as needed 2. If a narcotic has been prescribed take as directed only for breakthrough pain For Constipation: 1. Take Milk of Magnesia or MiraLax as needed for constipation Other: 1. You may shower daily. Do not scrub the incisions 2. Do not soak the incisions for 1 week 3. You may alternate ice and heat as needed for pain and swelling Wound Care: 1. Keep the incisions clean and dry Please call our office if you develop: 1. Fevers >101.5 2. Nausea or Vomiting 3. Worsening pain 4. Redness and thick discharge from the wounds If after hours please call the Hospital at and ask to speak to the on-call surgeon Referrals: Fatoumata Henderson MD [ [facility] STAFF PHYSICIAN] - 01/13/21 10:00 am Dominic Restrepo [Primary Care Provider] - (7-10 days Medication change while in hospital) Activity:: no lifting >20 lb x4 week Equipment/Supplies:: No Equipment Needed Diet:: As Tolerated Discharge Orders Discharge Orders: Discharge Order (Routine); Ordered 01/07/21 Ordered By: Fatoumata Henderson DS: Summary Time Spent with Patient providing and/or coordinating discharge services: Greater than 30 minutes Status at Discharge Functional status at discharge: independent ambulation Overall status at discharge: patient is progressing back to baseline Mental Status: mental status grossly normal Speech and Movement: speech and movement normal Mood: congruent mood Affect: normal affect Exam Const General: cooperative, comfortable and no acute distress HENMT Head: normocephalic and atraumatic Resp Effort & Inspection: normal respiratory effort Auscultation: clear to auscultation bilaterally Cardio Rate: regular rate Rhythm: abnormal rhythm Heart Sounds: no gallops, no murmurs and no rubs GI Inspection: incision (c/d/i) Palpation: soft Auscultation: normal bowel sounds Abdomen image: 1. open cholecystectomy incision 2. laparoscopic incision Psych Mental Status: mental status grossly normal Speech and Movement: speech and movement normal Mood: congruent mood Affect: normal affect DS: Data Vitals/I&O Vitals and I&O: Vital Signs Temperature 97.0 F L 01/07/21 06:20 Temperature Source Temporal Artery Scan 01/07/21 06:20 Pulse 116 H 01/07/21 06:20 Pulse Rhythm Irregular 01/07/21 08:00 Pulse 101 H 01/07/21 04:00 Respiratory Rate 22 01/07/21 06:20 Respiratory Effort 01/07/21 08:00 Respiratory Depth Normal 01/07/21 08:00 Respiratory Pattern Normal 01/07/21 08:00 Blood Pressure 136/98 H 01/07/21 06:20 Blood Pressure Mean 100 01/06/21 23:28 Blood Pressure Position Supine 01/06/21 04:00 Pulse Oximetry 97 01/07/21 06:20 Respiratory End-tidal CO2 26 01/04/21 11:25 Oxygen Delivery Method Room Air 01/07/21 06:20 Oxygen Flow Rate 0 01/07/21 06:20 Fraction of Inspired Oxygen (FIO2) 01/06/21 08:36 Pain Level 5 01/07/21 03:50 Comment 01/07/21 06:20 Intake & Output 01/06/21 01/06/21 01/07/21 11:59 23:59 11:59 Intake Total 1430 / 1910 480 / 1910 1927.5 / 1927.5 Output Total 400 / 645 245 / 645 650 / 650 Balance 1030 / 1265 235 / 1265 1277.5 / 1277.5 Weight 227 lb 15.327 oz Intake: IV 1190 / 1190 1927.5 / 1927.5 Oral 240 / 720 480 / 720 Output: Drainage 20 / 20 Left Abdomen 20 / 20 Urine 400 / 625 225 / 625 375 / 375 Stool 275 / 275 Other: Urine Color Light Ligia Yellow Yellow Urine Appearance Clear Clear Clear Urine Odor Strong Normal Normal Comment Voiding to urinal. voiding with urinal mixed with stool Stool Occult Blood Negative Stool Size Moderate Small Stool Characteristics Soft Liquid Brown Dozier Voiding Methods Urinal Urinal Urinal Data Completed and Pending Labs on day of discharge: Labs from last 24 hours 01/06/21 13:15 Sodium 134 L Potassium 3.9 Chloride 100 Carbon Dioxide 24.4 Anion Gap 9.6 BUN 35 H D Creatinine 1.7 H Estimated GFR/1.73 m2 39.93 Glucose 260 H Calcium 8.1 L Magnesium 2.3 PFSH Medical History Anxiety (08/10/08) Asbestosis (08/10/08) Asthma (07/08/12) pt. denies this Atopic conjunctivitis (10/22/13) Atrial fibrillation Benign prostatic hyperplasia (02/25/13) Bladder cancer Carpal tunnel syndrome Chronic anticoagulation Chronic venous stasis Depressive disorder (02/25/13) Diabetes mellitus (02/25/13) Essential hypertension (06/24/13) Frequency of micturition (01/03/16) Glaucoma (10/22/13) B/L Gross hematuria High grade dysplasia in colonic adenoma Hyperlipidemia (02/25/13) Hypermetropia (10/22/13) Hypogonadism Idiopathic peripheral neuropathy Low back pain (08/10/08) Noncompliance Nuclear senile cataract (10/22/13) Obesity (08/10/08) Aviva-en-y 02/2014 Obstructive sleep apnea syndrome (08/10/08) cpap Olecranon bursitis Osteoarthritis (08/10/08) BILATERAL KNEE replacements Peptic reflux disease (08/10/08) Peripheral neuralgia Phimosis Presbyopia (10/22/13) Pterygium (08/10/08) LEFT EYE Regular astigmatism (10/22/13) Sensorineural hearing loss, bilateral (09/05/17) Tubular adenoma Tubular and tubulovillous adenoma 2011 --suggested repeat 2017 Umbilical hernia (08/18/12) Urgency of urination (01/03/16) Urinary tract infection Urothelial carcinoma Varicose veins of lower extremity (08/10/08) Venous insufficiency (chronic) (peripheral) Surgical History History of transurethral destruction of bladder lesion Ronnell Fundoplication Repair of umbilical hernia Laparoscopic Aviva-en-y surgery for weight loss S/P colonoscopy Haddad-2011- tubular and tubulovillous polyps Santiago- 2019- sessile serrated with low grade dysplacia, tubullovillous with high grade dysplacia and tubular adenomas S/P partial colectomy (~05/09/20) Status post abdominoplasty (05/23/16) Status post tonsillectomy Status post total knee replacement B/L Vasectomy Family History Mother Cancer Father Heart disease Sister Cancer Sister No problems noted. Brother No problems noted. Brother No problems noted. Brother No problems noted. Son No problems noted. Son No problems noted. Son No problems noted. Social History Smoking/Tobacco Use Status: Never Second Hand Exposure: Yes Smoking risk assessment performed?: Yes Alcohol Intake: current Alcohol Intake frequency: holidays/special occasions only Drug use: Never Substance use type: does not use Details: alcohol: unknown Caregiver/Support person: No Household members: other Details: son Housing: apartment Communication Needs: None Do you need help understanding health information?: Never Pets and animals: No Do you think of yourself as: straight/heterosexual Current gender identity: male What is your relationship status?: How often do you talk on the phone with friends or family?: once per week How often do you get together with friends or relatives?: decline to answer How often do you attend evangelical or restoration services?: decline to answer Do you belong to any clubs or organized social groups?: no Panel score (0-1 are the most socially isolated patients): 0 What type of physical activity do you participate in: walking Duration: 15-30 minutes/day Frequency: 1-2 times per week Velia/Zoroastrianism: Faith Special velia needs: No Seatbelt use: always Helmet use: No Drive intox or ride w/intox new car driver: No Do you feel safe at home: Yes Do you feel safe in your relationship?: Yes
--- NOTE | 2021-01-07 11:42 | PDOC.CMDIS ---
- If Service Date Differs Date of service: 01/07/21 Time of Service: 11:42 LACE Index Scoring Tool - Questions: Length of Stay (in days): 3 Acuity (Admit via E.D.?): No E.D. Visits: 2 - Answers: Total Score: 5 Risk of Readmission: Low Risk Care Management Discharge Reason for Hospitalization: Chronic and acute cholecystitis Discharge Plan: Eugene is returning home with no new services. He will follow up with his PCP, surgeon, and discharge plan of care as directed. His son is driving him home via private vehicle. Patient/Family Education Needs: Review discharge instructions, including activity level and medications, and discuss Ask Me Three.
--- NOTE | 2021-01-07 11:56 | PT.INTREAT ---
Date of service: 01/07/21 Time of Service: 10:05 PT Notes Visit Reasons: CHRONIC AND ACUTE CHOLECYSTITIS Inpatient Physical Therapy Treatment Note [facility] Date: 01/07/2021 PRECAUTIONS: Fall and Activity as tolerated SUBJECTIVE: Stated he is doing pretty good today. Indicated he had to use urinal and sit on commode when I first arrived to room. After assisting patient with urinal in standing and walking him chair to commode I made nursing staff aware of patient being on commode and returned later for his melton ambulation and exercises. OBJECTIVE: PAIN: Slight discomfort with transfers supine to sit and sit to supine. BED MOBILITY/TRANSFERS Worked on log rolling into and out of bed today. Minimum assist with legs. Stated his son can help him if needed. Sit-stand: SBA Stand-sit: SBA GAIT Assistive Device: SPC Weight bearing: Full Assist: SBA Distance: 3ft chair to commode and 200ft later in the morning THEREX: Able to perform standing hip flexion, hip abduction, heel raises, horizontal shoulder abd/add and shoulder flexion to 90 degrees. ASSESSMENT: Tolerated todays activities well. Does struggle with log rolling technique a bit due to lifting of legs. Past notes indicate that Eugene has required only SBA with bed mobility. PLAN: To be discharge home with son later today. TREATMENT CODE/TIME: KEO ([id number]), 10:05 to 10:15 (ambulation to commode and assist with use of urinal) and 10:50 to 11:05 (ambulation and standing exercises)
--- NOTE | 2021-01-09 08:50 | INDS_ITS ---
Date of service: 01/09/21 Time of Service: 08:50 PT Notes Visit Reasons: CHRONIC AND ACUTE CHOLECYSTITIS Physical Therapy Inpatient Discharge Summary Date: 01/09/2021 Dates of Service: 01/05/2021 through 01/07/2021 This is a clinical summary of care provided on the duration of dates listed above. No charge was made in the completion of this documentation. Referring Doctor: Perez Andrade MD PT Orders: PT CONSULT: Safety consult for D/C Precautions: Fall. Standard. Activity as tolerated. Patient Profile/Admitting Diagnosis: Eugene is a 70-year-old female with diagnosis of chronic cholecystitis with calculus and is status post open cholecystectomy on postoperative day 1. PMHX: Medical History Anxiety (08/10/08) Asbestosis (08/10/08) Asthma (07/08/12) pt. denies this Atopic conjunctivitis (10/22/13) Atrial fibrillation Benign prostatic hyperplasia (02/25/13) Bladder cancer Carpal tunnel syndrome Chronic anticoagulation Chronic venous stasis Depressive disorder (02/25/13) Diabetes mellitus (02/25/13) Essential hypertension (06/24/13) Frequency of micturition (01/03/16) Glaucoma (10/22/13) B/L Gross hematuria High grade dysplasia in colonic adenoma Hyperlipidemia (02/25/13) Hypermetropia (10/22/13) Hypogonadism Idiopathic peripheral neuropathy Low back pain (08/10/08) Noncompliance Nuclear senile cataract (10/22/13) Obesity (08/10/08) Aviva-en-y 02/2014 Obstructive sleep apnea syndrome (08/10/08) cpap Olecranon bursitis Osteoarthritis (08/10/08) BILATERAL KNEE replacements Peptic reflux disease (08/10/08) Peripheral neuralgia Phimosis Presbyopia (10/22/13) Pterygium (08/10/08) LEFT EYE Regular astigmatism (10/22/13) Sensorineural hearing loss, bilateral (09/05/17) Tubular adenoma Tubular and tubulovillous adenoma 2011 --suggested repeat 2017 Umbilical hernia (08/18/12) Urgency of urination (01/03/16) Urinary tract infection Urothelial carcinoma Varicose veins of lower extremity (08/10/08) Venous insufficiency (chronic) (peripheral) Surgical History History of transurethral destruction of bladder lesion Ronnell Fundoplication Repair of umbilical hernia Laparoscopic Aviva-en-y surgery for weight loss S/P colonoscopy Haddad-2011- tubular and tubulovillous polyps Henderson- 2019- sessile serrated with low grade dysplacia, tubullovillous with high grade dysplacia and tubular adenomas S/P partial colectomy (~05/09/20) Status post abdominoplasty (05/23/16) Status post tonsillectomy Status post total knee replacement B/L Vasectomy Social History/Home Situation: Lives with son in a apartment with 14 steps to enter with rails on both sides. Independent with all aspects of ADL performance prior to surgery. No AD. No falls in the past 12 months. Equipment Owned/DME: None Subjective: NT. See most recent PHOTO FINISH PHOTOGRAPHER notes. Dayan Objective: General Observation: NT. See most recent PHOTO FINISH PHOTOGRAPHER notes. Mental Status: NT. See most recent PHOTO FINISH PHOTOGRAPHER notes. Pain: NT. See most recent PHOTO FINISH PHOTOGRAPHER notes. Vital Signs: NT. See most recent PHOTO FINISH PHOTOGRAPHER notes. ROM: Right Upper Extremity: Shoulder Flexion WFL. Shoulder abduction WFL. Elbow flexion WFL. Wrist flexion WFL. Opening and closing of hand WFL. Left Upper Extremity: Shoulder Flexion WFL. Shoulder abduction WFL. Elbow flexion WFL. Wrist flexion WFL. Opening and closing of hand WFL. Right Lower Extremity: Hip flexion WFL. Hip abduction WFL. Knee flexion WFL. Ankle dorsiflexion WFL. Ankle plantarflexion WFL. Left Lower Extremity: Hip flexion WFL. Hip abduction WFL. Knee flexion WFL. Ankle dorsiflexion WFL. Ankle plantarflexion WFL. Strength: Right Upper Extremity: Shoulder flexors 5/5. Shoulder abductors 5/5. Elbow flexors 5/5. Elbow extensors 5/5. [employer] Professor strong. Left Upper Extremity: Shoulder flexors 5/5. Shoulder abductors 5/5. Elbow flexors 5/5. Elbow extensors 5/5. [employer] Professor strong. Right Lower Extremity: Hip flexors 4/5. Hip abductors 4/5. Knee flexors 5/5. Knee extensors 4/5. Ankle dorsiflexors 5/5. Ankle plantarflexors 5/5. Left Lower Extremity:Hip flexors 4/5. Hip abductors 4/5. Knee flexors 5/5. Knee extensors 4/5. Ankle dorsiflexors 5/5. Ankle plantarflexors 5/5. Sensation: Intact as to pain and pressure on bilateral lower extremities. Bed Mobility/Transfers: Rolling minimal assist Supine to sit minimal assist Sit to supine minimal assist Sit to stand supervision Stand to sit supervision Bed to chair supervision Chair to bed supervision Gait: Guided patient through level surface ambulation of up to 200 feet using front wheeled walker with WBAT on BLE requiring only stand by assist. Roxane decreased due to shortness of breath and lines, gait pattern otherwise unremarkable. Stairs: Good on safe technique with negotiating 18 x 4 inch steps and 12 x 6 inch steps while holding onto bilateral rails with step over step pattern requiring only standby assist of PT and a line management of student nurse Yuki. Increase in shortness of breath noted that resolved with rest, oxygen saturation ranged from 88% through 94% on room air. Balance: Static Sitting: Normal Dynamic Sitting: Normal Static Standing: Good Dynamic Standing: Fair Assessment: Patient continues to present with decreased activity tolerance exhibiting shortness of breath with ambulation and stair negotiation activities that resolve with rest. Patient require the use of front wheeled walker for mobility ADL performance to minimize fatigue and postoperative pain. Patient's son will be available 29/04 when patient goes home to recover for any kind of assistance needed. Patient will benefit from home health PT services in order to progress mobility level using least restrictive assistive ambulatory device, assess home safety, identify additional equipment needs, and establish a functional maintenance program that will increase ability of patient to remain at home. Patient continues to present with clinical signs and symptoms consistent with current/admitting diagnoses that have resulted to mobility limitations, gait instability, generalized weakness, and impairment of motor control as demonstrated by the following impairment level findings: 1. Impaired standing balance 2. Impaired activity tolerance 3. Postoperative incisional pain with movement transitions Impairments are continues to contribute to the following functional limitations: 1. Inability to safely ambulate without assistive device 2. Increase completion time for mobility ADL performance Goals: Goals X1 week 1. Supine-Sit independent NOT MET 2. Sit-Supine independent NOT MET 3. Sit-Stand independent NOT MET 4. Stand-Sit independent NOT MET 5. Bed-Chair independent NOT MET 6. Chair-Bed independent NOT MET 7. Independent gait on level surface without an assistive device for at least 300 feet without report of pain nor dyspnea NOT MET 8. Independent stair negotiation while holding onto bilateral rails for at least 15 steps without report of pain nor dyspnea NOT MET 9. Good static and dynamic standing balance/tolerance NOT MET DISCHARGE RECOMMENDATIONS: Patient will benefit from home health PT services in order to progress mobility level using least restrictive assistive ambulatory device, assess home safety, identify additional equipment needs, and establish a functional maintenance program that will increase ability of patient to remain at home. We will continue to assess need for an AD. TREATMENT CODE/TIME: NC Thank you for the opportunity to participate in the care of this patient. Kenia Giordano PT, DPT, CLT [facility] [place], [place]
== END 2021-01-07 14:01 | disposition home or self-care (01) | DRG 416 ==
LOC: ICU 11:31
PROVIDERS: Internal Medicine; Admitting Provider Surgery; PCP Family Medicine; Visit Provider Surgery
PROC: 0FT44ZZ Resection of Gallbladder, Percutaneous Endoscopic Approach (ICD-10-PCS; CPT 47562; principal; 2021-01-04 07:30)
DX: K80.10 Calculus of gallbladder with chronic cholecystitis without obstruction (principal); Z53.31 Laparoscopic surgical procedure converted to open procedure; K66.0 Peritoneal adhesions (postprocedural) (postinfection); I48.91 Unspecified atrial fibrillation; I83.93 Asymptomatic varicose veins of bilateral lower extremities; E11.42 Type 2 diabetes mellitus with diabetic polyneuropathy; Z79.01 Long term (current) use of anticoagulants; E78.5 Hyperlipidemia, unspecified; K21.9 Gastro-esophageal reflux disease without esophagitis; M54.5 Low back pain; F41.9 Anxiety disorder, unspecified; J61 Pneumoconiosis due to asbestos and other mineral fibers; N40.0 Benign prostatic hyperplasia without lower urinary tract symptoms; C67.9 Malignant neoplasm of bladder, unspecified; I87.2 Venous insufficiency (chronic) (peripheral); I10 Essential (primary) hypertension; H40.9 Unspecified glaucoma; G47.33 Obstructive sleep apnea (adult) (pediatric); Z96.653 Presence of artificial knee joint, bilateral; H90.3 Sensorineural hearing loss, bilateral
CPT/HCPCS: 47600; 36415; 80048; 80053; 85027; 86850; 86900; 86901; 86920; 97110; 97162; 97530; 99232; 99233; 99239; 99253; J1650; NC; 83735; 85025; 88304; 94667; 99222; J0295; J2001; J2250; J3490

== ENCOUNTER → 2021-01-13 09:58 | Outpatient (BNVA) | payer OTHER, SELFPAY | PROVIDERS: PCP Family Medicine; Referring Provider Family Medicine; Visit Provider Surgery | DX: Z48.815 Encounter for surgical aftercare following surgery on the digestive system (principal); K81.0 Acute cholecystitis ==

== ENCOUNTER → 2021-01-16 11:59 | Outpatient (BNVA) | payer OTHER, SELFPAY | PROVIDERS: PCP Family Medicine; Referring Provider Family Medicine; Visit Provider Surgery | DX: R69 Illness, unspecified (principal) ==

== ENCOUNTER → 2021-01-17 11:06 | Outpatient (BNVA) | payer OTHER, SELFPAY | PROVIDERS: PCP Family Medicine; Referring Provider Family Medicine; Visit Provider Physical Therapy Assistant | DX: Z48.02 Encounter for removal of sutures (principal); Z90.49 Acquired absence of other specified parts of digestive tract ==

== ENCOUNTER → 2021-01-27 09:27 | Outpatient (BNVA) | payer OTHER, SELFPAY | PROVIDERS: PCP Family Medicine; Referring Provider Family Medicine; Visit Provider Physical Therapy Assistant | DX: Z48.815 Encounter for surgical aftercare following surgery on the digestive system (principal); E11.622 Type 2 diabetes mellitus with other skin ulcer; L97.929 Non-pressure chronic ulcer of unspecified part of left lower leg with unspecified severity; Z90.49 Acquired absence of other specified parts of digestive tract; E11.65 Type 2 diabetes mellitus with hyperglycemia | CPT/HCPCS: 99214 ==

== ENCOUNTER → 2021-02-03 11:04 | Outpatient (BNVA) | payer OTHER, SELFPAY | PROVIDERS: PCP Family Medicine; Referring Provider Family Medicine; Visit Provider Physical Therapy Assistant | DX: S31.109D Unspecified open wound of abdominal wall, unspecified quadrant without penetration into peritoneal cavity, subsequent encounter (principal); X58.XXXD Exposure to other specified factors, subsequent encounter; L97.821 Non-pressure chronic ulcer of other part of left lower leg limited to breakdown of skin; L97.811 Non-pressure chronic ulcer of other part of right lower leg limited to breakdown of skin | CPT/HCPCS: 29580 ==

== ENCOUNTER → 2021-02-10 13:02 | Outpatient (BNVA) | payer OTHER, SELFPAY | PROVIDERS: PCP Family Medicine; Referring Provider Family Medicine; Visit Provider Physical Therapy Assistant | DX: E11.622 Type 2 diabetes mellitus with other skin ulcer (principal); L97.821 Non-pressure chronic ulcer of other part of left lower leg limited to breakdown of skin; L97.811 Non-pressure chronic ulcer of other part of right lower leg limited to breakdown of skin; T81.31XD Disruption of external operation (surgical) wound, not elsewhere classified, subsequent encounter; Z90.49 Acquired absence of other specified parts of digestive tract | CPT/HCPCS: 29580; 97597 ==

== ENCOUNTER → 2021-02-17 09:28 | Outpatient (BNVA) | payer OTHER, SELFPAY | PROVIDERS: PCP Family Medicine; Referring Provider Family Medicine; Visit Provider Physical Therapy Assistant | DX: T81.31XD Disruption of external operation (surgical) wound, not elsewhere classified, subsequent encounter (principal); Z90.49 Acquired absence of other specified parts of digestive tract ==

== ENCOUNTER → 2021-02-23 07:17 | Outpatient (BNVA) | payer OTHER, SELFPAY | PROVIDERS: PCP Family Medicine; Referring Provider Family Medicine; Visit Provider Physical Therapy Assistant | DX: L97.821 Non-pressure chronic ulcer of other part of left lower leg limited to breakdown of skin (principal); L97.811 Non-pressure chronic ulcer of other part of right lower leg limited to breakdown of skin | CPT/HCPCS: 29581 ==

== ENCOUNTER 2021-02-28 03:07 | Outpatient (CLI) | payer OTHER, SELFPAY ==
[2021-02-28 14:32] LABS: Source Nasal/Nares
[2021-02-28 18:38] LABS: COVID-19 PCR Negative (Negative)
== END 2021-02-28 03:08 | disposition home or self-care (01) ==
LOC: LBO 03:07
PROVIDERS: PCP Family Medicine; Visit Provider Urology
DX: Z20.822 Contact with and (suspected) exposure to COVID-19 (principal); Z01.818 Encounter for other preprocedural examination
CPT/HCPCS: 87635

== ENCOUNTER 2021-03-02 07:29 | Day surgery (SDC) | payer OTHER, SELFPAY ==
[2021-03-02 08:00] VITALS: BP 153/85; PULSE 78; RESP 18; TEMP 36.6; O2SAT 97
--- NOTE | 2021-03-02 08:01 | W.PM.HP.N ---
Date of service: 03/02/21 Time of Service: 08:23 Assessment and Plan Assessment and plan (1) Urothelial carcinoma: Status: Acute Assessment and plan: For cystoscopy with possible TURBT History of Present Illness History of Present Illness Chief Complaint: Bladder cancer Narrative: This is a 70-year-old gentleman who has a history of urothelial cell carcinoma of the bladder.? His previous pathology demonstrated high-grade urothelial cell carcinoma with no muscular invasion.? His most recent occurrence was in January 2020. He has not had any recent gross hematuria. If his cystoscopy and cytology today are normal, we plan to switch to a 6 month cystoscopy schedule. Review of Systems Narrative: No fevers or chills No vision change or dysphasia Hx diabetes. No thyroid dysfunction No sputum production or hemoptysis Hx A Fib. No chest pain No nausea, vomiting, hepatitis, ulcers, jaundice No seizures, strokes or peripheral neuropathy Venous stasis ulcers lower extremities. No bleeding disorders or anemia No gout PFSH Medical History Anxiety (08/10/08) Asbestosis (08/10/08) Asthma (07/08/12) pt. denies this Atopic conjunctivitis (10/22/13) Atrial fibrillation Benign prostatic hyperplasia (02/25/13) Bladder cancer Carpal tunnel syndrome Chronic anticoagulation Chronic venous stasis Depressive disorder (02/25/13) Diabetes mellitus (02/25/13) Essential hypertension (06/24/13) Frequency of micturition (01/03/16) Glaucoma (10/22/13) B/L Gross hematuria High grade dysplasia in colonic adenoma Hyperlipidemia (02/25/13) Hypermetropia (10/22/13) Hypogonadism Idiopathic peripheral neuropathy Low back pain (08/10/08) Noncompliance Nuclear senile cataract (10/22/13) Obesity (08/10/08) Aviva-en-y 02/2014 Obstructive sleep apnea syndrome (08/10/08) cpap Olecranon bursitis Osteoarthritis (08/10/08) BILATERAL KNEE replacements Peptic reflux disease (08/10/08) Peripheral neuralgia Phimosis Presbyopia (10/22/13) Pterygium (08/10/08) LEFT EYE Regular astigmatism (10/22/13) Sensorineural hearing loss, bilateral (09/05/17) Tubular adenoma Tubular and tubulovillous adenoma 2011 --suggested repeat 2017 Umbilical hernia (08/18/12) Urgency of urination (01/03/16) Urinary tract infection Urothelial carcinoma Varicose veins of lower extremity (08/10/08) Venous insufficiency (chronic) (peripheral) Surgical History History of transurethral destruction of bladder lesion Ronnell Fundoplication Repair of umbilical hernia Laparoscopic Aviva-en-y surgery for weight loss S/P cholecystectomy (~01/04/21) acute hemorrhagic cholecystitis and xanthogranulomatous inflammation S/P colonoscopy Haddad-2011- tubular and tubulovillous polyps Santiago- 2019- sessile serrated with low grade dysplacia, tubullovillous with high grade dysplacia and tubular adenomas S/P partial colectomy (~05/09/20) Status post abdominoplasty (05/23/16) Status post tonsillectomy Status post total knee replacement B/L Vasectomy Family History Mother Cancer Father Heart disease Sister Cancer Sister No problems noted. Brother No problems noted. Brother No problems noted. Brother No problems noted. Son No problems noted. Son No problems noted. Son No problems noted. Social History Smoking/Tobacco Use Status: Never Second Hand Exposure: Yes Smoking risk assessment performed?: Yes Alcohol Intake: current Alcohol Intake frequency: holidays/special occasions only Drug use: Never Substance use type: does not use Details: alcohol: unknown Caregiver/Support person: No Household members: other Details: son Housing: apartment Communication Needs: None Do you need help understanding health information?: Never Pets and animals: No Do you think of yourself as: straight/heterosexual Current gender identity: male What is your relationship status?: How often do you talk on the phone with friends or family?: once per week How often do you get together with friends or relatives?: decline to answer How often do you attend alevism or restoration services?: decline to answer Do you belong to any clubs or organized social groups?: no Panel score (0-1 are the most socially isolated patients): 0 What type of physical activity do you participate in: walking Duration: 15-30 minutes/day Frequency: 1-2 times per week Velia/Zoroastrian: Advent Special velia needs: No Seatbelt use: always Helmet use: No Drive intox or ride w/intox class b truck driver: No Do you feel safe at home: Yes Do you feel safe in your relationship?: Yes Meds Allergies and Home Medications Allergies Allergy/AdvReac Type Severity Reaction Status Date / Time No Known Allergies Allergy Verified 03/02/21 07:50 Home Medications Medication Instructions Recorded Confirmed Type calcium carbonate-vitamin D3 2 ea PO DAILY 03/29/14 03/02/21 History [Calcium 600 + D(3)] cyanocobalamin (vitamin B-12) 500 mcg PO DAILY 03/29/14 03/02/21 History [Vitamin B-12] multivitamin [Daily Vitamin] 2 ea PO DAILY 03/29/14 03/02/21 History Vitamin C 1,000 mg PO DAILY 01/03/18 03/02/21 History omega-3 fatty acids [Fish Oil 2,400 mg PO DAILY 10/20/18 03/02/21 History Concentrate] ferrous sulfate, dried 159 mg (45 159 mg PO DAILY 07/28/19 03/02/21 History mg iron) tablet,extended release finasteride 5 mg tablet 5 mg PO DAILY #90 tab 04/27/20 03/02/21 Rx lisinopril 5 mg tablet 5 mg PO DAILY #90 tab-cap 04/27/20 03/02/21 Rx diltiazem HCl 240 mg 240 mg PO DAILY #90 tab-cap 07/27/20 03/02/21 Rx capsule,extended release 24 hr apixaban 5 mg tablet 5 mg PO BID #180 tab 10/06/20 03/02/21 Rx terazosin 2 mg capsule 2 mg PO DAILY #90 tab-cap 10/14/20 03/02/21 Rx dapagliflozin 10 mg tablet 10 mg PO DAILY #90 tab 11/11/20 03/02/21 Rx metformin [Glucophage] 1,000 mg PO DAILY #180 tab-cap 01/07/21 03/02/21 Rx metoprolol succinate 100 mg 100 mg PO DAILY #90 tab 01/10/21 03/02/21 Rx tablet,extended release 24 hr semaglutide 3 mg tablet 3 mg PO DAILY #30 tab 01/10/21 03/02/21 Rx lovastatin 20 mg tablet 20 mg PO DAILY #90 tab-cap 01/12/21 03/02/21 Rx nystatin 100,000 unit/gram topical 1 applic TOPICAL BID #30 g 02/03/21 03/02/21 Rx cream bupropion HCl 150 mg 24 hr tablet, 150 mg PO DAILY 30 Days #30 tab-cap 02/28/21 03/02/21 Rx extended release Exam Const General: cooperative and comfortable Neck Neck: supple Resp Effort & Inspection: normal respiratory effort Auscultation: clear to auscultation bilaterally Cardio Rhythm: abnormal rhythm GI Palpation: soft and no masses Neuro General: patient alert, patient awake and patient oriented x3 COVID-19 Screening Have you, or household traveled for leisure in last 14 days?: No Had IN PERSON contact w/suspected or confirmed C-19 person: No
[2021-03-02] MEDS: Sulfameth/Trimeth DS TAB 1 TAB PO (08:07)
--- NOTE | 2021-03-02 08:11 | W.ANESPRE ---
General Info Date of Service Date Performed: 03/02/21 Height: 5 ft 9 in Weight: 102.8 kg Body Mass Index (BMI): 33.5 Surgical Procedure: Operation Date: 03/02/21 08:55 Proposed Procedures Side Surgeon p Transurethral Resection Bladder Tumor POSSIBLE Tamir Osuna MD Meds Allergies and Home Medications Allergies Allergy/AdvReac Type Severity Reaction Status Date / Time No Known Allergies Allergy Verified 03/02/21 07:50 Home Medication Medication Instructions Recorded calcium carbonate-vitamin D3 2 ea PO DAILY 03/29/14 [Calcium 600 + D(3)] cyanocobalamin (vitamin B-12) 500 mcg PO DAILY 03/29/14 [Vitamin B-12] multivitamin [Daily Vitamin] 2 ea PO DAILY 03/29/14 Vitamin C 1,000 mg PO DAILY 01/03/18 omega-3 fatty acids [Fish Oil 2,400 mg PO DAILY 10/20/18 Concentrate] ferrous sulfate, dried 159 mg (45 159 mg PO DAILY 07/28/19 mg iron) tablet,extended release finasteride 5 mg tablet 5 mg PO DAILY #90 tab 04/27/20 lisinopril 5 mg tablet 5 mg PO DAILY #90 tab-cap 04/27/20 diltiazem HCl 240 mg 240 mg PO DAILY #90 tab-cap 07/27/20 capsule,extended release 24 hr apixaban 5 mg tablet 5 mg PO BID #180 tab 10/06/20 terazosin 2 mg capsule 2 mg PO DAILY #90 tab-cap 10/14/20 dapagliflozin 10 mg tablet 10 mg PO DAILY #90 tab 11/11/20 metformin [Glucophage] 1,000 mg PO DAILY #180 tab-cap 01/07/21 metoprolol succinate 100 mg 100 mg PO DAILY #90 tab 01/10/21 tablet,extended release 24 hr semaglutide 3 mg tablet 3 mg PO DAILY #30 tab 01/10/21 lovastatin 20 mg tablet 20 mg PO DAILY #90 tab-cap 01/12/21 nystatin 100,000 unit/gram topical 1 applic TOPICAL BID #30 g 02/03/21 cream bupropion HCl 150 mg 24 hr tablet, 150 mg PO DAILY 30 Days #30 tab-cap 02/28/21 extended release Current Visit Medications: Current Medications Generic Name Dose Route Start Last Admin Trade Name Freq PRN Reason Stop Dose Admin Ringer's Solution 1,000 mls @ 80 mls/hr 03/02/21 06:00 IV 03/31/21 23:59 INFUSION LUIS ALBERTO IV Miscellaneous Supplies 1 each 03/02/21 06:00 Iv Access IV 03/31/21 23:59 DIRECTED LUIS ALBERTO Sodium Chloride 0 ml 03/02/21 06:00 Normal Saline Flush 10 Ml Syr IV 03/31/21 23:59 PRN PRN Sodium Chloride 0 ml 03/02/21 06:00 Normal Saline 10 Ml Vial IJ 03/31/21 23:59 DIRECTED PRN Sterile Water 0 ml 03/02/21 06:00 Water,Injection,Sterile 10 Ml Vial IJ 03/31/21 23:59 DIRECTED PRN Trimethoprim/Sulfamethoxazole 1 tab 03/02/21 06:00 03/02/21 08:07 Sulfameth/Trimeth Ds Tab PO 03/02/21 16:00 1 tab PREOP LUIS ALBERTO Administration PFSH Active Problems Active Problems: Problem Status Onset Code Diabetic leg ulcer E11.622, L97.909 Status post cholecystectomy Z90.49 Phimosis N47.1 Dysplastic colon polyp K63.5 Chronic venous stasis I87.8 High grade dysplasia in colonic adenoma D12.6 Obstructive sleep apnea syndrome 08/10/08 G47.33 Diabetes mellitus 02/25/13 E11.9 Atrial fibrillation Urothelial carcinoma C68.9 Essential hypertension 06/24/13 I10 Low back pain 08/10/08 M54.5 Venous insufficiency (chronic) (peripheral) I87.2 Medical History Medical History Anxiety (08/10/08) Asbestosis (08/10/08) Asthma (07/08/12) pt. denies this Atopic conjunctivitis (10/22/13) Atrial fibrillation Benign prostatic hyperplasia (02/25/13) Bladder cancer Carpal tunnel syndrome Chronic anticoagulation Chronic venous stasis Depressive disorder (02/25/13) Diabetes mellitus (02/25/13) Essential hypertension (06/24/13) Frequency of micturition (01/03/16) Glaucoma (10/22/13) B/L Gross hematuria High grade dysplasia in colonic adenoma Hyperlipidemia (02/25/13) Hypermetropia (10/22/13) Hypogonadism Idiopathic peripheral neuropathy Low back pain (08/10/08) Noncompliance Nuclear senile cataract (10/22/13) Obesity (08/10/08) Aviva-en-y 02/2014 Obstructive sleep apnea syndrome (08/10/08) cpap Olecranon bursitis Osteoarthritis (08/10/08) BILATERAL KNEE replacements Peptic reflux disease (08/10/08) Peripheral neuralgia Phimosis Presbyopia (10/22/13) Pterygium (08/10/08) LEFT EYE Regular astigmatism (10/22/13) Sensorineural hearing loss, bilateral (09/05/17) Tubular adenoma Tubular and tubulovillous adenoma 2011 --suggested repeat 2017 Umbilical hernia (08/18/12) Urgency of urination (01/03/16) Urinary tract infection Urothelial carcinoma Varicose veins of lower extremity (08/10/08) Venous insufficiency (chronic) (peripheral) Surgical History Surgical History History of transurethral destruction of bladder lesion Ronnell Fundoplication Repair of umbilical hernia Laparoscopic Aviva-en-y surgery for weight loss S/P cholecystectomy (~01/04/21) acute hemorrhagic cholecystitis and xanthogranulomatous inflammation S/P colonoscopy Haddad-2011- tubular and tubulovillous polyps Santiago- 2019- sessile serrated with low grade dysplacia, tubullovillous with high grade dysplacia and tubular adenomas S/P partial colectomy (~05/09/20) Status post abdominoplasty (05/23/16) Status post tonsillectomy Status post total knee replacement B/L Vasectomy Tobacco Smoking/Tobacco Use Status: Never Second hand exposure: Yes Alcohol Alcohol Intake: current Alcohol intake frequency: holidays/special occasions only Substance Use Substance use: Never Substance use type: does not use Details: alcohol: unknown Vital Signs and Lab Results Vital Signs Most Recent Vital Signs in EMR: Most Recent Vital Signs Temp Pulse Resp BP Pulse Ox 36.6 C 78 18 153/85 H 97 03/02/21 08:00 03/02/21 08:00 03/02/21 08:00 03/02/21 08:00 03/02/21 08:00 Lab Results Blood Type / Crossmatch: No Data to Display Complete Blood Count: No Data to Display Complete Metabolic Panel: No Data to Display Liver Function Panel: No Data to Display Coagulation Panel: No Data to Display Cardiac Panel: No Data to Display Arterial Blood Gas: No Data to Display Venous Blood Gas: No Data to Display Pancreas Panel: No Data to Display Thyroid Panel: No Data to Display Infectious Disease: Coronavirus (COVID-19)(PCR) Negative (Negative) 02/28/21 10:24 02/28/21 Coronavirus 2019 Source Nasal/nares 02/28/21 10:24 02/28/21 Blood Cultures: No Data to Display Toxicology Panel: No Data to Display Imaging and Studies Imaging and Studies Echocardiogram Summary: Normal left ventricular wall thickness and chamber size. Estimated ejection fraction is 55 to 60%. There are no segmental wall motion abnormalities Right ventricular size is borderline. Normal right ventricular systolic function Left atrium is severely dilated. The right atrium is moderately dilated Trileaflet aortic valve with trace regurgitation Thickened mitral leaflets with moderate regurgitation Structurally normal tricuspid valve with moderate regurgitation. Estimated right ventricular systolic pressure is 42 mmHg, mild pulmonary hypertension The pulmonic valve is structurally normal 12/01/20 Anesthesia Assessment and Plan Anesthesia History Personal History: No History of Anesthesia Complications Family History: No Family History of Anesthesia Complications Exercise Tolerance Exercise Tolerance: Metabolic Equivalents<4 Pertinent Negatives Pertinent Negatives: No Symptoms of GERD Cardiac & Pulmonary Exam Cardiac Exam: Normal S1/S2 Heart Sounds Pulmonary Exam: Clear Bilateral Breath Sounds Airway Exam Known Difficult Airway: No Mallampati Class: 3 Mouth Opening: Normal (> 3cm) Thyromental Distance: Greater than 3 cm Neck Range of Motion: Full ROM Neck Circumference: Normal Teeth Condition: Normal Dentition ASA Classification ASA Score: ASA 3 Emergency Case?: No NPO Status NPO Status: NPO Clears >2 hours, Solids >8 hours Anesthesia Plan Resuscitation Status: Full Code Anesthesia Technique: General Anesthesia Airway Planned: Natural Airway Monitors Used: Standard Monitors
[2021-03-02] MEDS: Lactated Ringers 1,000 ML 80 ML IV (08:15)
[2021-03-02 08:18] VITALS: BMI 33.5
[2021-03-02] MEDS: Lidocaine 2% Jelly 6 ML SYR (08:45)
--- NOTE | 2021-03-02 08:47 | PAPNONF_PTH ---
PATIENT: Eugene Rueda LOC: [facility] U#:[id number] AGE/SX: 70/M ROOM: RE03/02/[address]: Tamir Osuna MD : 1950 BED: DIS: 03/02/2021 SPEC #: [id number] RECD: 03/02/21 12:46 STATUS: CORNEL REDaniel #: [id number] TAYLOR: 03/02/21 08:[address]: Tamir Osuna [facility]PT: [facility] Cytology RECD BY: Bronwyn Aviles ENTERED: 03/02/21 12:47 SP TYPE: ARIC WOODRUFF DR: Dominic Restrepo MD Tissues: 1 - BODY FLUID CYTO(SPUTUM/URINE)[facility] Procedures: BODY FLUID CYTO(URINE/SPUTUM) Comments: [id number] (TOTAL VOLUME = 60 ml's (#1 - 40 ml's URINE & 40 ml's CYTOLYTE ADDED) (#2 - 20 ml's URINE & 20 ml's CYTOLYTE ADDED)
--- NOTE | 2021-03-02 08:54 | W.PM.DSUDISC ---
Discharge Plan Disposition Patient Disposition: HOME Condition: Stable Discharge Details Reason For Visit: cystoscopy Attending Provider: Tamir Osuna Primary Care Provider: Dominic Restrepo Home Meds and New Rx's Prescriptions: No Action finasteride 5 mg tablet 5 mg PO DAILY Qty: 90 RF: 3 lisinopril 5 mg tablet 5 mg PO DAILY Qty: 90 RF: 3 metoprolol succinate 100 mg tablet extended release 24 hr 100 mg PO DAILY Qty: 90 RF: 3 semaglutide 3 mg tablet 3 mg PO DAILY Qty: 30 RF: 2 nystatin 100,000 unit/gram cream 1 applic topical BID Qty: 30 RF: 2 multivitamin [Daily Vitamin] 1 EACH tablet 2 ea PO DAILY RF: 0 cyanocobalamin (vitamin B-12) [Vitamin B-12] 500 MCG tablet 500 mcg PO DAILY RF: 0 calcium carbonate-vitamin D3 [Calcium 600 + D(3)] 1 EACH tablet 2 ea PO DAILY RF: 0 iron 159 mg (45 mg iron) tablet extended release 159 mg PO DAILY RF: 0 diltiazem HCl [Cardizem CD] 240 mg capsule,extended release 24hr 240 mg PO DAILY Qty: 90 RF: 3 Eliquis 5 mg tablet 5 mg PO BID Qty: 180 RF: 4 terazosin 2 mg capsule 2 mg PO DAILY Qty: 90 RF: 3 Farxiga 10 mg tablet 10 mg PO DAILY Qty: 90 RF: 3 lovastatin 20 mg tablet 20 mg PO DAILY Qty: 90 RF: 3 bupropion HCl 150 mg tablet extended release 24 hr 150 mg PO DAILY 30 Days Qty: 30 RF: 1 metformin [Glucophage] 1,000 mg tablet 1,000 mg PO DAILY Qty: 180 RF: 4 Vitamin C 1,000 MG tablet extended release 1,000 mg PO DAILY RF: 0 omega-3 fatty acids [Fish Oil Concentrate] 1,000 mg Capsule 2,400 mg PO DAILY RF: 0 Discharge Instructions Additional Instructions: OK to restart Eliquis Followup for cystoscopy in 6 months (can be either in office or in OR) Activity:: Activity as Tolerated Shower/Bathe:: 24 hours Diet:: As Tolerated Discharge Orders Discharge Orders: Discharge Order (Routine); Ordered 03/02/21 Ordered By: Tamir Osuna DS: Diagnosis Discharge Diagnosis (1) Urothelial carcinoma: Status: Acute
--- NOTE | 2021-03-02 08:58 | W.PM.OP ---
Date of service: 03/02/21 Time of Service: 08:58 Operative Note Operative Note DATE OF PROCEDURE: 03/02/21 PRE-OP DIAGNOSIS: History bladder cancer POST-OP DIAGNOSIS: same PROCEDURE: cystoscopy SURGEON: Tamir Osuna ANESTHESIA TYPE: General:No Airway Refer to Anesthesia Record ESTIMATED BLOOD LOSS: 0 PATHOLOGY: other (cytology) COMPLICATIONS: None Patient was transported to: same day Patient's condition: stable Implants: none Indications: This is a 70-year-old gentleman who has a history of high-grade, noninvasive urothelial cell carcinoma of the bladder. His last occurrence was in 2019. He presents for surveillance cystoscopy. Findings: Large median lobe of the prostate No visible papillary or nodular tumor Procedure Description: He was brought to the operating room on 03/02/2021. After successful induction of general anesthesia, he was placed in the dorsal lithotomy position. His genitalia was prepped and draped. 2% Xylocaine jelly was instilled into the urethra to act as a local anesthetic. A 22 [place] rigid cystoscope was passed through the urethra into the bladder. The urethra and bladder were inspected with a 30 degree lens. The pendulous, bulbous and membranous urethra was all appeared normal with no strictures. The prostatic urethra showed lateral lobe enlargement and a rather large median lobe projecting back into the lumen of the bladder. Once the bladder was reached, the urine was collected and sent to pathology for a cytology exam. The bladder was then inspected with both a 30 and 70 degree lens. No papillary or nodular lesions were seen on the bladder mucosa. No papillary lesions were seen on the prostatic urethral mucosa. Based on today's examination, I find no evidence of tumor recurrence.
[2021-03-02 09:00] VITALS: BP 110/71; PULSE 90; RESP 24; TEMP 36.3; O2SAT 93
--- NOTE | 2021-03-02 09:00 | W.ANESPOSTOP ---
Postoperative Evaluation Date, Time and Location Date Performed: 03/02/21 Time Performed: 09:00 Patient Location: Day Surgery Unit Vital Signs Most Recent Imported Vital Signs: Most Recent Vital Signs Temp Pulse Resp BP Pulse Ox 36.6 C 78 18 153/85 H 97 03/02/21 08:00 03/02/21 08:00 03/02/21 08:00 03/02/21 08:00 03/02/21 08:00 Most Recent Manually Entered Vital Signs: Adult Blood Pressure: 110/71 Heart Rate: 92 Respirations: 24 Oxygen Saturation (%): 92 Temperature (C): 36.3 C Pain Score (0-10 Scale): 0 Pain Score Most Recent Pain Score: Most Recent Pain Score Pain Level 0 03/02/21 08:00 Assessment Mental Status: Awake (Alert & Oriented to Patient Baseline) Airway and Respiratory Function: Patent airway with normal (patient baseline) respiratory exam Cardiovascular Function: Hemodynamically Stable Hydration Status: Adequately Hydrated Nausea & Vomiting: No Nausea or Vomiting Pain: Pt. Denies Any Pain Peripheral Nerve Block: Patient did not receive a nerve block Teaching Patient Teaching: Discussed Safe Use of Pain Medication Given Likely or Known CARLOS A
[2021-03-02 09:01] VITALS: BP 110/71; PULSE 92; RESP 24; TEMPC 36.3; O2SAT 92
[2021-03-02 09:28] VITALS: BP 135/86; PULSE 82; RESP 18; TEMP 36.7; O2SAT 97
[2021-03-02] MEDS: Phenazopyridine 200 MG TAB PO (09:30)
== END 2021-03-02 10:00 | disposition home or self-care (01) ==
PROVIDERS: PCP Family Medicine; Visit Provider Urology
PROC: 0TBB8ZZ Excision of Bladder, Via Natural or Artificial Opening Endoscopic (ICD-10-PCS; CPT 52000; principal; 2021-03-02 08:45)
DX: C67.9 Malignant neoplasm of bladder, unspecified (principal); E11.9 Type 2 diabetes mellitus without complications; Z79.01 Long term (current) use of anticoagulants; E78.5 Hyperlipidemia, unspecified
CPT/HCPCS: 52000; 88104; J2001

== ENCOUNTER → 2021-03-03 09:34 | Outpatient (BNVA) | payer OTHER, SELFPAY | PROVIDERS: PCP Family Medicine; Referring Provider Family Medicine; Visit Provider Physical Therapy Assistant | DX: Z51.89 Encounter for other specified aftercare (principal); L97.821 Non-pressure chronic ulcer of other part of left lower leg limited to breakdown of skin; L97.811 Non-pressure chronic ulcer of other part of right lower leg limited to breakdown of skin; L29.8 Other pruritus | CPT/HCPCS: 29581 ==

== ENCOUNTER → 2021-03-10 08:43 | Outpatient (BNVA) | payer OTHER, SELFPAY | PROVIDERS: PCP Family Medicine; Referring Provider Family Medicine; Visit Provider Physical Therapy Assistant | DX: Z51.89 Encounter for other specified aftercare (principal); L97.821 Non-pressure chronic ulcer of other part of left lower leg limited to breakdown of skin; L97.811 Non-pressure chronic ulcer of other part of right lower leg limited to breakdown of skin; L29.8 Other pruritus | CPT/HCPCS: 29581 ==

== ENCOUNTER → 2021-03-10 15:25 | Outpatient (BNVA) | payer OTHER, SELFPAY | PROVIDERS: PCP Family Medicine; Referring Provider Family Medicine; Visit Provider Urology | DX: C68.9 Malignant neoplasm of urinary organ, unspecified (principal) ==

== ENCOUNTER → 2021-03-17 09:29 | Outpatient (BNVA) | payer OTHER, SELFPAY | PROVIDERS: Referring Provider Family Medicine; Visit Provider Physical Therapy Assistant | DX: L29.8 Other pruritus (principal); Z51.89 Encounter for other specified aftercare | CPT/HCPCS: 99213 ==

== ENCOUNTER 2021-03-22 18:07 | Outpatient (REF) | payer OTHER, SELFPAY ==
[2021-03-22 13:38] LABS: Abs Immature Grans 0.01 10^3/uL (0.0-0.06); Absolute Basophil Count 0.02 10^3/uL (0.0-0.2); Absolute Eosinophil Count 0.18 10^3/uL (0.0-0.7); Absolute Lymphocyte Count 1.03 10^3/uL (1.2-3.4); Absolute Monocyte Count 0.61 10^3/uL (0.1-0.8); Absolute Neutrophil Count 4.27 10^3/uL (1.2-6.7); Basophils % 0.3; Eosinophils % 2.9; HGB 13.3 g/dL (13.5-17.5); Immature Grans % 0.2; Lymphocytes % 16.8; MCH 28.5 pg (27.0-33.0); MCHC 31.7 % (32.0-36.0); MCV 90.1 fL (80-95); MPV 9.4 fL (8.0-11.0); Neutrophils % 69.8; Nucleated RBC 0 %; Platelet Count 238 10^3/uL (130-400); RBC 4.66 10^6/uL (4.36-5.78); RDW 15.7 % (11.8-14.1); RDW-SD 50.8 fL; WBC 6.12 10^3/uL (4.4-10.8)
[2021-03-22 14:10] LABS: ALT 29 U/L (16-63); AST 15 U/L (15-37); Albumin 3.6 g/dL (3.4-5.0); Alkaline Phosphatase 75 U/L (46-116); Anion Gap 13.2 mmol/L (3-11); BUN 27 mg/dL (7-18); Bilirubin, Total 0.7 mg/dL (0.2-1.0); CO2 21.8 mmol/L (21.0-32.0); CREATININE 1.1 mg/dL (0.70-1.30); Calcium 8.9 mg/dL (8.5-10.1); Chloride 107 mmol/L (98-107); Glucose 169 mg/dL (74-106); Potassium 3.7 mmol/L (3.5-5.1); Sodium 142 mmol/L (136-145); Total Protein 6.7 g/dL (6.4-8.2)
== END 2021-03-22 18:08 | disposition home or self-care (01) ==
LOC: NCHCN 18:07
PROVIDERS: Visit Provider Family Medicine
DX: E11.65 Type 2 diabetes mellitus with hyperglycemia (principal); I48.91 Unspecified atrial fibrillation; I87.2 Venous insufficiency (chronic) (peripheral)
CPT/HCPCS: 80053; 85025

== ENCOUNTER 2021-04-07 11:28 | Outpatient (REF) | payer OTHER, SELFPAY ==
[2021-04-07 14:35] LABS: Anion Gap 14.1 mmol/L (3-11); BUN 22 mg/dL (7-18); CO2 22.9 mmol/L (21.0-32.0); CREATININE 1.4 mg/dL (0.70-1.30); Calcium 8.4 mg/dL (8.5-10.1); Chloride 105 mmol/L (98-107); Estimated GFR 49.96 (mL/min/1.73m2); Glucose 179 mg/dL (74-106); Potassium 3.9 mmol/L (3.5-5.1); Sodium 142 mmol/L (136-145)
== END 2021-04-07 11:29 | disposition home or self-care (01) ==
LOC: NCHCN 11:28
PROVIDERS: Visit Provider Family Medicine
DX: I10 Essential (primary) hypertension (principal); E11.9 Type 2 diabetes mellitus without complications; I87.2 Venous insufficiency (chronic) (peripheral)
CPT/HCPCS: 80048

== ENCOUNTER 2021-06-01 07:10 | Emergency (ER) | payer OTHER, SELFPAY ==
[2021-06-01] VITALS (40 sets, daily range): BP systolic 120–172; BP diastolic 79–113; PULSE 80–156; RESP 12–25; TEMP 36.7; O2SAT 84–97
--- NOTE | 2021-06-01 07:15 | RT.EKG_ITS ---
APPROVED REPORT Exam: Resting ECG Reason for Exam: abdominal pain Patient Location: E HR:120 bpm ECG Measurements Heart Rate 120 AXIS AR [id number] P [id number] QRSd 99 QRS -7 QT 344 T 67 QTc 487 Conclusion Atrial fibrillation...V-rate 92-128, irreg A-activity Ventricular tachycardia, unsustained...sequence of 3 or more V complexes Low voltage, extremity and precordial leads...extremity<0.5mV, precordial<1.0mV Physician: Rate 120, atrial fibrillation, no significant ST elevations or depressions. No STEMI.
--- OUTSIDE RECORDS SUMMARY | 2021-06-01 07:16 | XMS_ITS ---
:1950 Author Organization [facility] Address [address] [place] [address] Care Team Providers Name Role Phone Patricia Unavailable Unavailable PROBLEMS Unknown Problems ALLERGIES No Known Allergies ENCOUNTERS Encounter Location Date Diagnosis [facility] [address] [place] [address] 09 Aug, 2 020 [facility] [address] [place] [address] 02 Aug, 2 020 [facility] [address] [place] [address] 26 Jul, 2 020 [facility] [address] [place] [address] 12 Jul, 2 020 [facility] [address] [place] [address] 28 Sep, 2 020 [facility] [address] [place] [address] 21 Sep, 2 020 [facility] [address] [place] [address] 14 Sep, 2 020 [facility] [address] [place] [address] 31 May, 2 020 [facility] [address] [place] [address] 24 May, 2 020 [facility] [address] [place] [address] 10 May, 2 020 [facility] [address] [place] [address] 27 Apr, 2 020 [facility] [address] [place] [address] 15 Apr, 2 020 [facility] [address] [place] [address] 01 Apr, 2 020 IMMUNIZATIONS No Known Immunizations SOCIAL HISTORY Never Assessed REASON FOR REFERRAL FUNCTIONAL STATUS PLAN OF CARE VITAL SIGNS MEDICATIONS Unknown Medications PROCEDURES No Known procedures RESULTS No Results REASON FOR VISIT [facility]-Follow Up, [facility]-Follow Up, [facility]-Follow Up, [facility]-Follow Up, [facility]-FollowUp, [facility]-Follow Up, [facility]-Follow Up, [facility]- Follow Up, [facility]-Follow Up, [facility]-Follow Up, [facility]-Follow Up, [facility]ound [facility]-Follow Up, Wound [facility]-Follow Up, Wound [facility]-NEW Insurance Providers [facility] Member Patient Patient Patient Patient Patient Subscriber Subscriber Subscriber Group Insurance Plan Plan Plan Plan ID Relationship Address Phone Name Date of ID Name Date of No Type Insurance Insurance Insurance Coverage to Subscriber Address Phone Name Dates [facility] [phone] UNITED self MELANIE [id number] [facility] [id number] [facility] [place] MEDICARE COMPLETE [facility] COMPLETE [id number] SELF PAY self MELANIE [id number] [place] [id number] MEDICARE
--- NOTE | 2021-06-01 07:23 | ED.GENADUL_ITS ---
Discharge Plan Disposition Patient Disposition: HOME Condition: Improving Discharge Details Clinical Impression: Ureterolithiasis Primary Care Provider: Unknown,Unknown ED Provider: Gloria Travis Home Meds and New Rx's Prescriptions: New tamsulosin [Flomax] 0.4 mg capsule 0.4 mg PO DAILY Qty: 10 RF: 0 oxycodone 5 mg tablet 5 mg PO Q6H PRN (Reason: pain) Qty: 10 RF: 0 Continued finasteride 5 mg tablet 5 mg PO DAILY Qty: 90 RF: 3 lisinopril 5 mg tablet 5 mg PO DAILY Qty: 90 RF: 3 metoprolol succinate 100 mg tablet extended release 24 hr 100 mg PO DAILY Qty: 90 RF: 3 nystatin 100,000 unit/gram cream 1 applic topical BID Qty: 30 RF: 2 multivitamin [Daily Vitamin] 1 EACH tablet 2 ea PO DAILY RF: 0 cyanocobalamin (vitamin B-12) [Vitamin B-12] 500 MCG tablet 500 mcg PO DAILY RF: 0 calcium carbonate-vitamin D3 [Calcium 600 + D(3)] 1 EACH tablet 2 ea PO DAILY RF: 0 iron 159 mg (45 mg iron) tablet extended release 159 mg PO DAILY RF: 0 diltiazem HCl [Cardizem CD] 240 mg capsule,extended release 24hr 240 mg PO DAILY Qty: 90 RF: 3 terazosin 2 mg capsule 2 mg PO DAILY Qty: 90 RF: 3 Farxiga 10 mg tablet 10 mg PO DAILY Qty: 90 RF: 3 lovastatin 20 mg tablet 20 mg PO DAILY Qty: 90 RF: 3 bupropion HCl 150 mg tablet extended release 24 hr 150 mg PO DAILY 30 Days Qty: 30 RF: 1 Eliquis 5 mg tablet 5 mg PO BID Qty: 180 RF: 0 metformin [Glucophage] 1,000 mg tablet 1,000 mg PO DAILY Qty: 180 RF: 4 triamcinolone acetonide 0.1 % ointment 1 applic TOPICAL DAILY RF: 0 furosemide 20 mg tablet 20 mg PO DAILY RF: 0 Vitamin C 1,000 MG tablet extended release 1,000 mg PO DAILY RF: 0 omega-3 fatty acids [Fish Oil Concentrate] 1,000 mg Capsule 2,400 mg PO DAILY RF: 0 Discharge Instructions Instructions: Kidney Stones (ED), How to Strain Your Urine (ED) Additional Instructions: Drink plenty of fluids and get plenty of rest. Prescriptions for Flomax and oxycodone were sent electronically to your pharmacy. You can alternate Tylenol and ibuprofen as needed and directed for pain. Take the oxycodone for pain not relieved with Tylenol or ibuprofen. Take the Flomax daily as directed. Call Dr. Osuna's office today to schedule a follow-up appointment for reevaluation. Return immediately to the emergency department if you develop any worsening or new concerning symptoms such as fever, worsening pain, inability to urinate or any other concerns. Referrals: Tamir Osuna MD [ [facility] STAFF PHYSICIAN] - Discharge Data Discharge Date/Time-TO BE ENTERED AT DEPARTURE: 06/01/21 11:50 Discharge Physician: Gloria Travis Medical Decision Making <Buzz Jara DO - Last Filed: 06/01/21 21:52> 70-year-old male with a past medical history of atrial fibrillation on apixaban, COPD, diabetes mellitus, high cholesterol, open cholecystectomy in the past few months, Ronnell fundoplication, Aviva-en-Y, previous inguinal surgery repairs, presents today for evaluation of left lower quadrant abdominal pain. Patient states that this morning when he woke up he had notable pain in his left lower quadrant. It was associated with 2 episodes of junky vomiting. He denies previous symptoms like this in the past. He denies any fever or chills. He denies any chest pain or shortness of breath. He denies any new medications. He denies any diarrhea. He denies any blood in his vomitus or diarrhea. He denies any urinary complaints. No other complaints at this time. No other modifying factors. Physical exam demonstrates slightly distended abdomen with notable left lower quadrant tenderness. No guarding or rebound no. Patient's heart rate is elevated in the 140s, but with his vomiting this morning I doubt that he had any of his morning medications that stayed down. Differential at this time includes diverticulitis, intra-abdominal abscess, or other potential surgical pathology. We will get CT scan, gently rehydrate, monitor closely and reassess. Patient will be signed out to my colleague Dr. Gloria Travis for further assessment after labs and imaging. EKG 7: 26 Rate 120, atrial fibrillation, no significant ST elevations or depressions. No STEMI. <Gloria Travis DO - Last Filed: 06/02/21 07:56> 0800 -- Please see Dr. Jara's note for initial presentation, exam, and plan. Case endorsed to follow-up on labs and imaging and final disposition. Patient complaining of nausea. EKG notes a rate of 120, A. fib with QTC of 480, no STEMI. Dose of Zofran ordered. Labs reviewed. WBC 14. Lactate 1.6. Cr 2.0. GFR 33. Glucose 428. Bicarb 24. Anion gap 11. Troponin negative. Lipase within normal limits. We will proceed with CT imaging with reduced amount of contrast. 0930 --CT reviewed and notes a 7 to 8 mm calculus in the left UPJ with moderate hydronephrosis. Patient had no relief of pain with morphine but was given a dose of Dilaudid with complete relief. Will discuss with Dr. Osuna. 1120 --attempted to reach Dr. Osuna but he is unavailable as he is in the operating room til noon. Repeat BMP noted improvement of renal function after IV fluids. Patient remains pain-free and feels good to go home. He was given a dose of Flomax here and oxycodone to go and prescription sent electronically to his pharmacy. Patient placed on Dr. Osuna's list for follow-up. He is advised on increasing fluids and rest. Usual and customary return precautions given prior to discharge. D/w Dr. Osuna after pt discharge and they will f/u with pt in a few days. Will advise him to stop his eliquis if pain still present in preparation for possible stent placement if needed. Medical Records Medical records reviewed: Yes I reviewed the patient's medical records. Imaging Data Radiologic Study: Radiologist's impression: CT ABDOMEN PELVIS W CLINICAL HISTORY: LLQ pain, vomiting. TECHNIQUE: Imaging Protocol: Axial computed tomography images with coronal and sagittal reformatted images were created and reviewed CONTRAST MATERIAL: Intravenous: Omnipaque 75cc Oral: None COMPARISON: CT CT ABDOMEN PELVIS W from 09/24/2020 FINDINGS: VISUALIZED LUNG BASES: No nodules nor pleural effusions evident. ABDOMEN: Again noted is evidence of previous bariatric surgery. Aviva limb is not dilated. There is also no evidence of obstruction at the enteroenterostomy. Here the [place] and excluded stomach is not dilated. LIVER: There are no focal hepatic lesions evident . GALLBLADDER/BILIARY: Gallbladder surgically absent. CBD is not dilated. PANCREAS: No evidence of pancreatic mass nor dilatation of the pancreatic duct. SPLEEN: Spleen is not enlarged. No obvious intrasplenic lesions. ADRENALS: There are no significant adrenal masses. KIDNEYS:No new right kidney findings. , On the left side there is a 7-8 millimeter calculus now evident at the left ureteropelvic junction, previously p resent in the kidney on the September 2020 study. There is dilatation of the collecting system above this level and perinephric streaking around the left kidney. There are no remaining calculi in left kidney. The left ureter below the UPJ is not dilated. No other calculi in the left ureter nor in the urinary bladder.. ABDOMINAL AORTA: Abdominal aorta is calcified but not enlarged. Retroaortic left renal vein is again noted. LYMPH NODES:There is no retroperitineal nor paraaortic adenopathy. ABDOMINAL WALL: There is anterior abdominal wall hernia repair. Previously described thin fluid collection is unchanged. Either related to the mesh orders postoperative seroma. This is in the deep subcutaneous tissues related to the left rectus abdominus. GI: There is no evidence of bowel obstruction, free air, nor abscess. PELVIS: GI: Cecum is mobile. Appendix is above the iliac fossa. Appendix contains a small appendicular lith but there is no evidence of acute appendicitis. sigmoid diverticulosis but no evidence of acute diverticulitis. LYMPH NODES: There is no intrapelvic nor inguinal adenopathy. REPRODUCTIVE: Prostate slightly enlarged. Seminal vesicles unremarkable. URINARY BLADDER: No calculi nor obvious masses evident OSSEOUS: No significant osseous lesions. IMPRESSION: 1. Main acute finding is an obstructing 7-8 millimeter calculus at the left ureteropelvic junction, previously present within the left kidney on the CT scan of September 2020. There is moderate hydronephrosis left kidney and perinephric streaking. No calculi in the opposite-right collecting system nor in the urinary bladder. 2. Sigmoid diverticulosis. No acute diverticulitis. No appendicitis. 3. Evidence of previous bariatric surgery and anterior abdominal hernia repair. Also prior cholecystectomy. No bowel obstruction. No free air. No ascites. No dilatation of the biliary tree. Lab Data Lab results reviewed: Yes I reviewed the patient's lab results. Labs: Laboratory Tests Range/Units 06/01/21 06/01/21 06/01/21 07:25 07:25 07:25 WBC (4.4-10.8) 10^3/uL 14.92 H RBC (4.36-5.78) 10^6/uL 5.05 Hgb (13.5-17.5) g/dL 14.6 Hct (40.0-50.0) % 43.9 MCV (80-95) fL 86.9 MCH (27.0-33.0) pg 28.9 MCHC (32.0-36.0) % 33.3 RDW (11.8-14.1) % 13.3 Plt Count (130-400) 10^3/uL 268 MPV (8.0-11.0) fL 9.8 Immature Gran % 0.6 Neutrophils % 85.6 Lymphocytes % 4.5 Monocytes % 9.0 Eosinophils % 0.1 Basophils % 0.2 Nucleated RBC % % 0 Absolute Neutrophils (1.2-6.7) 10^3/uL 12.77 H Absolute Lymphocytes (1.2-3.4) 10^3/uL 0.67 L Absolute Monocytes (0.1-0.8) 10^3/uL 1.34 H Absolute Eosinophils (0.0-0.7) 10^3/uL 0.01 Absolute Basophils (0.0-0.2) 10^3/uL 0.03 PT (9.3-11.0) sec INR (0.9-1.1) APTT (21.0-27.5) sec VBG Lactate (0.6-1.4) mmol/L 1.6 H Sodium (136-145) mmol/L 133 L Potassium (3.5-5.1) mmol/L 4.0 Chloride (98-107) mmol/L 97 L Carbon Dioxide (21.0-32.0) mmol/L 24.1 Anion Gap (3-11) mmol/L 11.9 H BUN (7-18) mg/dL 27 H Creatinine (0.70-1.30) mg/dL 2.0 H Estimated GFR/1.73 m2 (mL/min/1.73m2) 33.10 Glucose (74-106) mg/dL 428 H Calcium (8.5-10.1) mg/dL 8.5 Total Bilirubin (0.2-1.0) mg/dL 1.8 H AST (15-37) U/L 16 ALT (16-63) U/L 18 Alkaline Phosphatase (46-116) U/L 95 Troponin I (<0.06) ng/mL Total Protein (6.4-8.2) g/dL 7.7 Albumin (3.4-5.0) g/dL 3.3 L Lipase (73-393) U/L 69 Urine Color (Yellow) Urine Clarity (Clear) Urine pH (5-8) Ur Specific [place] (1.005-1.025) Urine Protein (Negative) mg/dL Urine Ketones (Negative) mg/dL Urine Blood (Negative) Urine Nitrite (Negative) Urine Bilirubin (Negative) Urine Urobilinogen (Up TO 0.2) EU/dL Ur Leukocyte Esterase (Negative) Urine RBC (0-2) HPF Urine WBC (0-5) HPF Ur Epithelial Cells (Negative) HPF Urine Crystals (Negative) HPF Urine Bacteria (Negative) HPF Urine Casts (Negative) LPF Urine Mucus (Negative) Ur Culture Indicated? Urine Glucose (Negative) mg/dL COVID-19 Source SARS-CoV-2 (PCR) Range/Units 06/01/21 06/01/21 06/01/21 07:25 07:25 07:27 WBC (4.4-10.8) 10^3/uL RBC (4.36-5.78) 10^6/uL Hgb (13.5-17.5) g/dL Hct (40.0-50.0) % MCV (80-95) fL MCH (27.0-33.0) pg MCHC (32.0-36.0) % RDW (11.8-14.1) % Plt Count (130-400) 10^3/uL MPV (8.0-11.0) fL Immature Gran % Neutrophils % Lymphocytes % Monocytes % Eosinophils % Basophils % Nucleated RBC % % Absolute Neutrophils (1.2-6.7) 10^3/uL Absolute Lymphocytes (1.2-3.4) 10^3/uL Absolute Monocytes (0.1-0.8) 10^3/uL Absolute Eosinophils (0.0-0.7) 10^3/uL Absolute Basophils (0.0-0.2) 10^3/uL PT (9.3-11.0) sec 10.9 INR (0.9-1.1) 1.1 APTT (21.0-27.5) sec 25.6 VBG Lactate (0.6-1.4) mmol/L Sodium (136-145) mmol/L Potassium (3.5-5.1) mmol/L Chloride (98-107) mmol/L Carbon Dioxide (21.0-32.0) mmol/L Anion Gap (3-11) mmol/L BUN (7-18) mg/dL Creatinine (0.70-1.30) mg/dL Estimated GFR/1.73 m2 (mL/min/1.73m2) Glucose (74-106) mg/dL Calcium (8.5-10.1) mg/dL Total Bilirubin (0.2-1.0) mg/dL AST (15-37) U/L ALT (16-63) U/L Alkaline Phosphatase (46-116) U/L Troponin I (<0.06) ng/mL < 0.05 Total Protein (6.4-8.2) g/dL Albumin (3.4-5.0) g/dL Lipase (73-393) U/L Urine Color (Yellow) Urine Clarity (Clear) Urine pH (5-8) Ur Specific [place] (1.005-1.025) Urine Protein (Negative) mg/dL Urine Ketones (Negative) mg/dL Urine Blood (Negative) Urine Nitrite (Negative) Urine Bilirubin (Negative) Urine Urobilinogen (Up TO 0.2) EU/dL Ur Leukocyte Esterase (Negative) Urine RBC (0-2) HPF Urine WBC (0-5) HPF Ur Epithelial Cells (Negative) HPF Urine Crystals (Negative) HPF Urine Bacteria (Negative) HPF Urine Casts (Negative) LPF Urine Mucus (Negative) Ur Culture Indicated? Urine Glucose (Negative) mg/dL COVID-19 Source Cancelled SARS-CoV-2 (PCR) Cancelled Range/Units 06/01/21 06/01/21 06/01/21 07:44 07:50 10:25 WBC (4.4-10.8) 10^3/uL RBC (4.36-5.78) 10^6/uL Hgb (13.5-17.5) g/dL Hct (40.0-50.0) % MCV (80-95) fL MCH (27.0-33.0) pg MCHC (32.0-36.0) % RDW (11.8-14.1) % Plt Count (130-400) 10^3/uL MPV (8.0-11.0) fL Immature Gran % Neutrophils % Lymphocytes % Monocytes % Eosinophils % Basophils % Nucleated RBC % % Absolute Neutrophils (1.2-6.7) 10^3/uL Absolute Lymphocytes (1.2-3.4) 10^3/uL Absolute Monocytes (0.1-0.8) 10^3/uL Absolute Eosinophils (0.0-0.7) 10^3/uL Absolute Basophils (0.0-0.2) 10^3/uL PT (9.3-11.0) sec INR (0.9-1.1) APTT (21.0-27.5) sec VBG Lactate (0.6-1.4) mmol/L Sodium (136-145) mmol/L 133 L Potassium (3.5-5.1) mmol/L 4.4 Chloride (98-107) mmol/L 98 Carbon Dioxide (21.0-32.0) mmol/L 25.8 Anion Gap (3-11) mmol/L 9.2 BUN (7-18) mg/dL 25 H Creatinine (0.70-1.30) mg/dL 1.8 H Estimated GFR/1.73 m2 (mL/min/1.73m2) 37.38 Glucose (74-106) mg/dL 400 H Calcium (8.5-10.1) mg/dL 7.9 L Total Bilirubin (0.2-1.0) mg/dL AST (15-37) U/L ALT (16-63) U/L Alkaline Phosphatase (46-116) U/L Troponin I (<0.06) ng/mL Total Protein (6.4-8.2) g/dL Albumin (3.4-5.0) g/dL Lipase (73-393) U/L Urine Color (Yellow) Yellow Urine Clarity (Clear) Sl Cloudy Urine pH (5-8) 5.5 Ur Specific [place] (1.005-1.025) 1.020 Urine Protein (Negative) mg/dL 100 H Urine Ketones (Negative) mg/dL 15 H Urine Blood (Negative) Small H Urine Nitrite (Negative) Negative Urine Bilirubin (Negative) Negative Urine Urobilinogen (Up TO 0.2) EU/dL 0.2 Ur Leukocyte Esterase (Negative) Negative Urine RBC (0-2) HPF 5-10 H Urine WBC (0-5) HPF 0-2 Ur Epithelial Cells (Negative) HPF Many Urine Crystals (Negative) HPF Negative Urine Bacteria (Negative) HPF Few Urine Casts (Negative) LPF Negative Urine Mucus (Negative) Trace Ur Culture Indicated? No/Sq. Contamination Urine Glucose (Negative) mg/dL >=1000 H COVID-19 Source Nasal/Nares SARS-CoV-2 (PCR) Negative HPI <Buzz Jara DO - Last Filed: 06/01/21 21:52> General Date/Time Provider Initiated Documentation: 06/01/21 07:12 . HPI Narrative: 70-year-old male with a past medical history of atrial fibrillation on apixaban, COPD, diabetes mellitus, high cholesterol, open cholecystectomy in the past few months, Ronnell fundoplication, Aviva-en-Y, previous inguinal surgery repairs, presents today for evaluation of left lower quadrant abdominal pain. Patient states that this morning when he woke up he had notable pain in his left lower quadrant. It was associated with 2 episodes of junky vomiting. He denies previous symptoms like this in the past. He denies any fever or chills. He denies any chest pain or shortness of breath. He denies any new medications. He denies any diarrhea. He denies any blood in his vomitus or diarrhea. He denies any urinary complaints. No other complaints at this time. No other modifying factors. Related Data Home Medications Medication Instructions Recorded Confirmed calcium carbonate-vitamin D3 2 ea PO DAILY 03/29/14 06/01/21 [Calcium 600 + D(3)] cyanocobalamin (vitamin B-12) 500 mcg PO DAILY 03/29/14 06/01/21 [Vitamin B-12] multivitamin [Daily Vitamin] 2 ea PO DAILY 03/29/14 06/01/21 Vitamin C 1,000 mg PO DAILY 01/03/18 06/01/21 omega-3 fatty acids [Fish Oil 2,400 mg PO DAILY 10/20/18 06/01/21 Concentrate] ferrous sulfate, dried 159 mg (45 159 mg PO DAILY 07/28/19 06/01/21 mg iron) tablet,extended release finasteride 5 mg tablet 5 mg PO DAILY #90 tab 04/27/20 06/01/21 lisinopril 5 mg tablet 5 mg PO DAILY #90 tab-cap 04/27/20 06/01/21 diltiazem HCl 240 mg 240 mg PO DAILY #90 tab-cap 07/27/20 06/01/21 capsule,extended release 24 hr terazosin 2 mg capsule 2 mg PO DAILY #90 tab-cap 10/14/20 06/01/21 dapagliflozin 10 mg tablet 10 mg PO DAILY #90 tab 11/11/20 06/01/21 metformin [Glucophage] 1,000 mg PO DAILY #180 tab-cap 01/07/21 06/01/21 metoprolol succinate 100 mg 100 mg PO DAILY #90 tab 01/10/21 06/01/21 tablet,extended release 24 hr lovastatin 20 mg tablet 20 mg PO DAILY #90 tab-cap 01/12/21 06/01/21 nystatin 100,000 unit/gram topical 1 applic TOPICAL BID #30 g 02/03/21 06/01/21 cream bupropion HCl 150 mg 24 hr tablet, 150 mg PO DAILY 30 Days #30 tab-cap 02/28/21 06/01/21 extended release apixaban 5 mg tablet 5 mg PO BID #180 tab 04/11/21 06/01/21 furosemide 20 mg PO DAILY 06/01/21 06/01/21 oxycodone 5 mg PO Q6H PRN #10 tab 06/01/21 tamsulosin [Flomax] 0.4 mg PO DAILY #10 cap 06/01/21 triamcinolone acetonide 1 applic TOPICAL DAILY 06/01/21 06/01/21 Previous Rx's Medication Instructions Recorded finasteride 5 mg tablet 5 mg PO DAILY #90 tab 04/27/20 lisinopril 5 mg tablet 5 mg PO DAILY #90 tab-cap 04/27/20 diltiazem HCl 240 mg 240 mg PO DAILY #90 tab-cap 07/27/20 capsule,extended release 24 hr terazosin 2 mg capsule 2 mg PO DAILY #90 tab-cap 10/14/20 dapagliflozin 10 mg tablet 10 mg PO DAILY #90 tab 11/11/20 metformin [Glucophage] 1,000 mg PO DAILY #180 tab-cap 01/07/21 metoprolol succinate 100 mg 100 mg PO DAILY #90 tab 01/10/21 tablet,extended release 24 hr lovastatin 20 mg tablet 20 mg PO DAILY #90 tab-cap 01/12/21 nystatin 100,000 unit/gram topical 1 applic TOPICAL BID #30 g 02/03/21 cream bupropion HCl 150 mg 24 hr tablet, 150 mg PO DAILY 30 Days #30 tab-cap 02/28/21 extended release apixaban 5 mg tablet 5 mg PO BID #180 tab 04/11/21 oxycodone 5 mg PO Q6H PRN #10 tab 06/01/21 tamsulosin [Flomax] 0.4 mg PO DAILY #10 cap 06/01/21 Allergies Allergy/AdvReac Type Severity Reaction Status Date / Time No Known Allergies Allergy Verified 06/01/21 07:23 General Stated Complaint: Abd Prob TREVOR: 2 Review of Systems <Buzz Jara DO - Last Filed: 06/01/21 21:52> All systems reviewed & are unremarkable except as noted in HPI and below PFSH <Buzz Jara DO - Last Filed: 06/01/21 21:52> Medical History Anxiety (08/10/08) Asbestosis (08/10/08) Asthma (07/08/12) pt. denies this Atopic conjunctivitis (10/22/13) Atrial fibrillation Benign prostatic hyperplasia (02/25/13) Bladder cancer Carpal tunnel syndrome Chronic anticoagulation Chronic venous stasis Depressive disorder (02/25/13) Diabetes mellitus (02/25/13) Essential hypertension (06/24/13) Frequency of micturition (01/03/16) Glaucoma (10/22/13) B/L Gross hematuria High grade dysplasia in colonic adenoma Hyperlipidemia (02/25/13) Hypermetropia (10/22/13) Hypogonadism Idiopathic peripheral neuropathy Low back pain (08/10/08) Noncompliance Nuclear senile cataract (10/22/13) Obesity (08/10/08) Aviva-en-y 02/2014 Obstructive sleep apnea syndrome (08/10/08) cpap Olecranon bursitis Osteoarthritis (08/10/08) BILATERAL KNEE replacements Peptic reflux disease (08/10/08) Peripheral neuralgia Phimosis Presbyopia (10/22/13) Pterygium (08/10/08) LEFT EYE Regular astigmatism (10/22/13) Sensorineural hearing loss, bilateral (09/05/17) Tubular adenoma Tubular and tubulovillous adenoma 2011 --suggested repeat 2017 Umbilical hernia (08/18/12) Urgency of urination (01/03/16) Urinary tract infection Urothelial carcinoma Varicose veins of lower extremity (08/10/08) Venous insufficiency (chronic) (peripheral) Surgical History History of transurethral destruction of bladder lesion Ronnell Fundoplication Repair of umbilical hernia Laparoscopic Aviva-en-y surgery for weight loss S/P cholecystectomy (~01/04/21) acute hemorrhagic cholecystitis and xanthogranulomatous inflammation S/P colonoscopy [place]-2011- tubular and tubulovillous polyps [place]- 2019- sessile serrated with low grade dysplacia, tubullovillous with high grade dysplacia and tubular adenomas S/P partial colectomy (~05/09/20) Status post abdominoplasty (05/23/16) Status post tonsillectomy Status post total knee replacement B/L Vasectomy Family History Mother Cancer Father Heart disease Sister Cancer Sister No problems noted. Brother No problems noted. Brother No problems noted. Brother No problems noted. Son No problems noted. Son No problems noted. Son No problems noted. Social History Smoking/Tobacco Use Status: Never Second Hand Exposure: Yes Smoking risk assessment performed?: Yes Alcohol Intake: current Alcohol Intake frequency: holidays/special occasions only Drug use: Never Substance use type: does not use Caregiver/Support person: No Household members: other Details: son Housing: apartment Communication Needs: None Do you need help understanding health information?: Never Pets and animals: No Do you think of yourself as: straight/heterosexual Current gender identity: male What is your relationship status?: How often do you talk on the phone with friends or family?: once per week How often do you get together with friends or relatives?: decline to answer How often do you attend congregation or rastafari services?: decline to answer Do you belong to any clubs or organized social groups?: no Panel score (0-1 are the most socially isolated patients): 0 What type of physical activity do you participate in: walking Duration: 15-30 minutes/day Frequency: 1-2 times per week Velia/Muslim: Zoroastrian Special velia needs: No Seatbelt use: always Helmet use: No Drive intox or ride w/intox 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 3.ENT: Atraumatic external nose and ears. Moist MM. Neck: Symmetric, trachea midline, No thyromegaly. 4.CVS: +S1/S2, No murmurs or gallops. Peripheral pulses 2+ and equal in all extremities. Brisk capillary refill in all extremities. 5.RESP: Unlabored respiratory effort. Clear to auscultation bilaterally. No wheezes rales or rhonchi 6.GI: Distended, surgical incision sites appear are well-healed. Pain and tenderness noted in the left lower quadrant. No pain in the right upper quadrant or right lower quadrant. No palpable inguinal hernia that I can appreciate at this time 7.MSK: Normocephalic/Atraumatic, Extremities w/o deformity or ttp No cyanosis or clubbing, Normal movement of all extremities 8.Skin: Warm, Dry. No rashes or lesions. 9.Neuro: research hydrologist II-XII grossly intact. Sensation grossly intact, no focal neurologic deficits. 10.Psych: (AAO) x3. Appropriate mood and affect Course <Buzz Jara DO - Last Filed: 06/01/21 21:52> Vital Signs Vital signs: Vital Signs Temperature 36.7 C 06/01/21 07:15 Pulse 136 H 06/01/21 07:15 Respiratory Rate 22 06/01/21 07:15 Blood Pressure 134/94 H 06/01/21 07:15 Pulse Oximetry 97 06/01/21 07:15 Temperature 36.7 C 06/01/21 07:15 Temperature Source Temporal Artery Scan 06/01/21 07:15 Pulse 136 H 06/01/21 07:15 Respiratory Rate 22 06/01/21 07:15 Respiratory Effort Non-Labored 06/01/21 07:20 Blood Pressure 134/94 H 06/01/21 07:15 Blood Pressure Position Supine 06/01/21 07:15 Pulse Oximetry 97 06/01/21 07:15 Oxygen Delivery Method Room Air 06/01/21 07:15 Oxygen Flow Rate 0 06/01/21 07:15 Pain Level 9 06/01/21 07:15 Sign Out <Buzz Jara DO - Last Filed: 06/01/21 21:52> Sign Out Data: Sign Out Comment: Pending labs and imaging and reassessment. Notable left lower quadrant abdominal pain Last updated by Buzz Jara DO at 06/01/21 07:35
[2021-06-01 07:34] LABS: Lactate 1.6 mmol/L (0.6-1.4)
[2021-06-01] MEDS: Normal Saline 1,000 ML 1000 ML IV (07:34)
[2021-06-01] MEDS: MORPHine 4 MG/ML SYR IVP (07:35)
[2021-06-01 07:37] LABS: Abs Immature Grans 0.09 10^3/uL (0.0-0.06); Absolute Basophil Count 0.03 10^3/uL (0.0-0.2); Absolute Eosinophil Count 0.01 10^3/uL (0.0-0.7); Absolute Lymphocyte Count 0.67 10^3/uL (1.2-3.4); Absolute Neutrophil Count 12.77 10^3/uL (1.2-6.7); Basophils % 0.2; Eosinophils % 0.1; HCT 43.9 % (40.0-50.0); HGB 14.6 g/dL (13.5-17.5); Immature Grans % 0.6; Lymphocytes % 4.5; MCH 28.9 pg (27.0-33.0); MCHC 33.3 % (32.0-36.0); MCV 86.9 fL (80-95); MPV 9.8 fL (8.0-11.0); Neutrophils % 85.6; Nucleated RBC 0 %; Platelet Count 268 10^3/uL (130-400); RBC 5.05 10^6/uL (4.36-5.78); RDW 13.3 % (11.8-14.1); RDW-SD 42.3 fL; WBC 14.92 10^3/uL (4.4-10.8)
[2021-06-01 07:40] LABS: Absolute Monocyte Count 1.34 10^3/uL (0.1-0.8)
[2021-06-01 07:46] LABS: Source Nasal/Nares
[2021-06-01 07:52] LABS: ALT 18 U/L (16-63); AST 16 U/L (15-37); Albumin 3.3 g/dL (3.4-5.0); Alkaline Phosphatase 95 U/L (46-116); Anion Gap 11.9 mmol/L (3-11); BUN 27 mg/dL (7-18); Bilirubin, Total 1.8 mg/dL (0.2-1.0); CO2 24.1 mmol/L (21.0-32.0); Calcium 8.5 mg/dL (8.5-10.1); Chloride 97 mmol/L (98-107); Glucose 428 mg/dL (74-106); Lipase 69 U/L (73-393); Sodium 133 mmol/L (136-145); Total Protein 7.7 g/dL (6.4-8.2)
[2021-06-01 07:57] LABS: INR 1.1 (0.9-1.1); PTT Activated 25.6 sec (21.0-27.5); Prothrombin Time 10.9 sec (9.3-11.0)
[2021-06-01 07:59] LABS: Troponin I < 0.05 ng/mL (<0.06)
[2021-06-01 08:04] LABS: Bilirubin Negative (Negative); Blood Small (Negative); Clarity Sl Cloudy (Clear); Glucose >=1000 mg/dL (Negative); Ketones 15 mg/dL (Negative); Leukocyte Esterase Negative (Negative); Nitrite Negative (Negative); Urobilinogen 0.2 EU/dL (Up TO 0.2); pH 5.5 (5-8)
[2021-06-01 08:10] LABS: Bacteria Few HPF (Negative); C & S Indicated? No/Sq. Contamination; Casts Negative LPF (Negative); Crystals Negative HPF (Negative); Epithelial Cells Many HPF (Negative); Mucus Trace (Negative); WBC 0-2 HPF (0-5)
[2021-06-01] MEDS: Ondansetron 4 MG/2 ML VIAL IVP (08:15)
[2021-06-01] MEDS: Omnipaque 350 MG/ML 100 ML BTL 75 ML IV (08:31)
--- NOTE | 2021-06-01 08:33 | DI.CT_ITS ---
Exam(s) CT ABDOMEN PELVIS W EXAM: CT ABDOMEN PELVIS W CLINICAL HISTORY: LLQ pain, vomiting. TECHNIQUE: Imaging Protocol: Axial computed tomography images with coronal and sagittal reformatted images were created and reviewed CONTRAST MATERIAL: Intravenous: Omnipaque 75cc Oral: None COMPARISON: CT CT ABDOMEN PELVIS W from 09/24/2020 FINDINGS: VISUALIZED LUNG BASES: No nodules nor pleural effusions evident. ABDOMEN: Again noted is evidence of previous bariatric surgery. Aviva limb is not dilated. There is also no e vidence of obstruction at the enteroenterostomy. Here the tunica-biloxi and excluded stomach is not dilated . LIVER: There are no focal hepatic lesions evident . GALLBLADDER/BILIARY: Gallbladder surgically absent. CBD is not dilated. PANCREAS: No evidence of pancreatic mass nor dilatation of the pancreatic duct. SPLEEN: Spleen is not enlarged. No obvious intrasplenic lesions. ADRENALS: There are no significant adrenal masses. KIDNEYS:No new right kidney findings. , On the left side there is a 7-8 millimeter calculus now evid ent at the left ureteropelvic junction, previously present in the kidney on the September 2020 study. There is dilatation of the collecting system above this level and perinephric streaking around the l eft kidney. There are no remaining calculi in left kidney. The left ureter below the UPJ is not dil ated. No other calculi in the left ureter nor in the urinary bladder.. ABDOMINAL AORTA: Abdominal aorta is calcified but not enlarged. Retroaortic left renal vein is again noted. LYMPH NODES:There is no retroperitineal nor paraaortic adenopathy. ABDOMINAL WALL: There is anterior abdominal wall hernia repair. Previously described thin fluid mickey ection is unchanged. Either related to the mesh orders postoperative seroma. This is in the deep fallon bcutaneous tissues related to the left rectus abdominus. GI: There is no evidence of bowel obstruction, free air, nor abscess. PELVIS: GI: Cecum is mobile. Appendix is above the iliac fossa. Appendix contains a small appendicular lith but there is no evidence of acute appendicitis. sigmoid diverticulosis but no evidence of acute dive rticulitis. LYMPH NODES: There is no intrapelvic nor inguinal adenopathy. REPRODUCTIVE: Prostate slightly enlarged. Seminal vesicles unremarkable. URINARY BLADDER: No calculi nor obvious masses evident OSSEOUS: No significant osseous lesions. IMPRESSION: 1. Main acute finding is an obstructing 7-8 millimeter calculus at the left ureteropelvic junction, p reviously present within the left kidney on the CT scan of September 2020. There is moderate hydronep hrosis left kidney and perinephric streaking. No calculi in the opposite-right collecting system nor in the urinary bladder. 2. Sigmoid diverticulosis. No acute diverticulitis. No appendicitis. 3. Evidence of previous bariatric surgery and anterior abdominal hernia repair. Also prior cholecyst ectomy. No bowel obstruction. No free air. No ascites. No dilatation of the biliary tree. RADIATION DOSE DELIVERED: 1,109.51mGy.cm Total DLP DATA REPOSITORY: All CT scans at this facility are submitted to the National Radiology Data Registry (NRDR) Dose Index Registry (DIR) with the [employer] (A[employer]). RADIATION OPTIMIZATION: All CT scans at this facility use at least one of these dose optimization te chniques: automated exposure control; mA and/or kV adjustment per patient size (includes targeted exa ms where dose is matched to clinical indication); or iterative reconstruction.
[2021-06-01 08:41] LABS: COVID-19 PCR Negative (Negative)
[2021-06-01] MEDS: Normal Saline 1,000 ML 125 ML IV (08:51)
[2021-06-01] MEDS: HYDROmorphone 2 MG/ML VIAL 1 MG IVP (08:51)
[2021-06-01 10:42] LABS: Anion Gap 9.2 mmol/L (3-11); BUN 25 mg/dL (7-18); CO2 25.8 mmol/L (21.0-32.0); CREATININE 1.8 mg/dL (0.70-1.30); Calcium 7.9 mg/dL (8.5-10.1); Chloride 98 mmol/L (98-107); Estimated GFR 37.38 (mL/min/1.73m2); Glucose 400 mg/dL (74-106); Potassium 4.4 mmol/L (3.5-5.1); Sodium 133 mmol/L (136-145)
[2021-06-01] MEDS: Tamsulosin 0.4 MG CAPCR PO (11:35)
--- NOTE | 2021-06-01 11:36 | NUR.NOTE ---
i faxed a follow up referral to urolgy, nixon Collins Note:
== END 2021-06-01 11:50 | disposition home or self-care (01) ==
PROVIDERS: Student in an Organized Health Care Education/Training Program; Emergency Provider Physician Assistant
DX: N13.2 Hydronephrosis with renal and ureteral calculous obstruction (principal); R10.32 Left lower quadrant pain; R11.2 Nausea with vomiting, unspecified; E11.65 Type 2 diabetes mellitus with hyperglycemia; Z79.84 Long term (current) use of oral hypoglycemic drugs; Z20.822 Contact with and (suspected) exposure to COVID-19; Z03.818 Encounter for observation for suspected exposure to other biological agents ruled out
CPT/HCPCS: 36415; 80048; 80053; 83690; 87635; 93005; 96361; 96374; 96375; 99285; 74177; 81003; 81015; 83605; 84484; 85025; 85610; 85730; 93010; J2270; J2405; J3490

== ENCOUNTER 2021-06-04 07:48 | Emergency (ER) | payer OTHER, SELFPAY ==
[2021-06-04 07:58] VITALS: BP 170/106; PULSE 103; TEMP 36.3; O2SAT 96
--- NOTE | 2021-06-04 08:16 | ED.GENADUL_ITS ---
Discharge Plan Disposition Patient Disposition: HOME Condition: Improving Discharge Details Clinical Impression: Ureterolithiasis, Hyperglycemia, Elevated WBCs, Creatinine elevation Primary Care Provider: Unknown,Unknown ED Provider: Zeina Matson [place] Meds and New Rx's Prescriptions: New ondansetron 4 mg tablet,disintegrating 4 mg PO Q6H PRN (Reason: nausea and vomiting) Qty: 10 RF: 0 oxycodone 5 mg tablet 5 mg PO Q8H PRN (Reason: pain) Qty: 7 RF: 0 Continued finasteride 5 mg tablet 5 mg PO DAILY Qty: 90 RF: 3 lisinopril 5 mg tablet 5 mg PO DAILY Qty: 90 RF: 3 metoprolol succinate 100 mg tablet extended release 24 hr 100 mg PO DAILY Qty: 90 RF: 3 nystatin 100,000 unit/gram cream 1 applic topical BID Qty: 30 RF: 2 multivitamin [Daily Vitamin] 1 EACH tablet 2 ea PO DAILY RF: 0 cyanocobalamin (vitamin B-12) [Vitamin B-12] 500 MCG tablet 500 mcg PO DAILY RF: 0 calcium carbonate-vitamin D3 [Calcium 600 + D(3)] 1 EACH tablet 2 ea PO DAILY RF: 0 iron 159 mg (45 mg iron) tablet extended release 159 mg PO DAILY RF: 0 diltiazem HCl [Cardizem CD] 240 mg capsule,extended release 24hr 240 mg PO DAILY Qty: 90 RF: 3 terazosin 2 mg capsule 2 mg PO DAILY Qty: 90 RF: 3 Farxiga 10 mg tablet 10 mg PO DAILY Qty: 90 RF: 3 lovastatin 20 mg tablet 20 mg PO DAILY Qty: 90 RF: 3 bupropion HCl 150 mg tablet extended release 24 hr 150 mg PO DAILY 30 Days Qty: 30 RF: 1 Eliquis 5 mg tablet 5 mg PO BID Qty: 180 RF: 0 metformin [Glucophage] 1,000 mg tablet 1,000 mg PO DAILY Qty: 180 RF: 4 triamcinolone acetonide 0.1 % ointment 1 applic TOPICAL DAILY RF: 0 furosemide 20 mg tablet 20 mg PO DAILY RF: 0 tamsulosin [Flomax] 0.4 mg capsule 0.4 mg PO DAILY Qty: 10 RF: 0 oxycodone 5 mg tablet 5 mg PO Q6H PRN (Reason: pain) Qty: 10 RF: 0 Vitamin C 1,000 MG tablet extended release 1,000 mg PO DAILY RF: 0 omega-3 fatty acids [Fish Oil Concentrate] 1,000 mg Capsule 2,400 mg PO DAILY RF: 0 Discharge Instructions Instructions: Kidney Stones (ED) Additional Instructions: Please continue to encourage hydration. You may use Zofran as prescribed if you have any recurrence of your nausea or vomiting. Please use the oxycodone as prescribed to help with your discomfort. You may also use Tylenol to help with your pain. Please continue with your other medications as previously prescribed. Please call Dr. Osuna tomorrow to schedule prompt follow-up for reevaluation and continued treatment of your stone. Please continue with your daily Flomax to help with passage of stone. If develop fever/chills, increased pain inability stay hydrated or other new/worsening symptoms please seek care urgently once again. Referrals: Tamir Osuna MD [ [facility] STAFF PHYSICIAN] - Discharge Data Discharge Date/Time-TO BE ENTERED AT DEPARTURE: 06/04/21 11:17 Medical Decision Making Patient is a pleasant 70-year-old male presenting today with chief complaint of sided flank pain. He was seen here 3 days ago for the same. At that time, he was diagnosed with a 7 to 8 mm calculus at the left UPJ with moderate hydronephrosis. Dr. Osuna was consulted and plan was for patient to be DC'd to home with Flomax and pain management. Patient reports that he did recheck to Dr. Osuna's office does not yet have a follow-up time. He did advise the patient to get holding the Eliquis if pain present in preparation for possible stent placement. Patient reports that the pain has remained unchanged. However, this morning he began having some nausea and vomiting similar to when he initially had presented. States that because of the he has not been able to take his pain medications. He has not had his morning medications as of yet. Past medical history is pertinent for atrial fibrillation anticoagulated on Eliquis, COPD, diabetes, anxiety, hypertension, hyperlipidemia, CARLOS A, peptic wrist disease, UTI. On exam, patient appears nontoxic. She is hypertensive at 170/106, tachycardic at 103. Patient has not had his morning medications including metoprolol this morning. No abdomen significant for tenderness on the left side, really far lateral. He states that this is where the pain has been previously. No peritoneal findings. Attempted to reach urology was unsuccessful. Multiple times were made at obtaining IV access was patient all of which were unsuccessful. Patient was given ODT Zofran and p.o. oxycodone. He reports complete resolution of his naus ea and discomfort. Will have him hydrate orally. Labs reviewed. Patient has a white count of 15.7, this is up from 14.93 days ago. His creatinine is 1.7, currently down slightly from 3 days ago. Glucose is elevated at 400, this has been elevated historically this level as well. Awaiting urinalysis. UA shows no leukocyte esterase, negative nitrite. Reevaluated the patient. He reports feeling much improved. Is ready for d/c tto home. He will call Dr. Osuna's office tomorrow to schedule f/u appointment as had previously been planned. Strict return precautions were discussed. Will refill his Oxycodone. He will not drive while taking this medication. All of his quesitons and concerns were addressed, he is in agreement iwth this plan. HPI General Mode of arrival: ambulatory . Date/Time Provider Initiated Documentation: 06/04/21 07:54 . Limitations to Documentation: no limitations . Information obtained by: patient, RN notes reviewed and old records reviewed . History of Present Illness 70 year old M presents to the emergency department with the chief complaint of abdominal pain, described as severe, with intensity rated at 9. Quality is described as aching, and is localized to the abdomen. Patient reports no radiation. Patient started experiencing this day(s) and it has been constant. Medication improves symptom(s), (oxycodone) No exacerbating factors reported . Patient notes loss of appetite and nausea/vomiting; denies chest pain, diaphoresis, fever/chills, rash, shortness of breath and weakness. Patient did receive the following treatments prior to arrival, none Related Data Home Medications Medication Instructions Recorded Confirmed calcium carbonate-vitamin D3 2 ea PO DAILY 03/29/14 06/01/21 [Calcium 600 + D(3)] cyanocobalamin (vitamin B-12) 500 mcg PO DAILY 03/29/14 06/01/21 [Vitamin B-12] multivitamin [Daily Vitamin] 2 ea PO DAILY 03/29/14 06/01/21 Vitamin C 1,000 mg PO DAILY 01/03/18 06/01/21 omega-3 fatty acids [Fish Oil 2,400 mg PO DAILY 10/20/18 06/01/21 Concentrate] ferrous sulfate, dried 159 mg (45 159 mg PO DAILY 07/28/19 06/01/21 mg iron) tablet,extended release finasteride 5 mg tablet 5 mg PO DAILY #90 tab 04/27/20 06/01/21 lisinopril 5 mg tablet 5 mg PO DAILY #90 tab-cap 04/27/20 06/01/21 diltiazem HCl 240 mg 240 mg PO DAILY #90 tab-cap 07/27/20 06/01/21 capsule,extended release 24 hr terazosin 2 mg capsule 2 mg PO DAILY #90 tab-cap 10/14/20 06/01/21 dapagliflozin 10 mg tablet 10 mg PO DAILY #90 tab 11/11/20 06/01/21 metformin [Glucophage] 1,000 mg PO DAILY #180 tab-cap 01/07/21 06/01/21 metoprolol succinate 100 mg 100 mg PO DAILY #90 tab 01/10/21 06/01/21 tablet,extended release 24 hr lovastatin 20 mg tablet 20 mg PO DAILY #90 tab-cap 01/12/21 06/01/21 nystatin 100,000 unit/gram topical 1 applic TOPICAL BID #30 g 02/03/21 06/01/21 cream bupropion HCl 150 mg 24 hr tablet, 150 mg PO DAILY 30 Days #30 tab-cap 02/28/21 06/01/21 extended release apixaban 5 mg tablet 5 mg PO BID #180 tab 04/11/21 06/01/21 furosemide 20 mg PO DAILY 06/01/21 06/01/21 oxycodone 5 mg PO Q6H PRN #10 tab 06/01/21 tamsulosin [Flomax] 0.4 mg PO DAILY #10 cap 06/01/21 triamcinolone acetonide 1 applic TOPICAL DAILY 06/01/21 06/01/21 ondansetron 4 mg PO Q6H PRN #10 tab 06/04/21 oxycodone 5 mg PO Q8H PRN #7 tab 06/04/21 Previous Rx's Medication Instructions Recorded finasteride 5 mg tablet 5 mg PO DAILY #90 tab 04/27/20 lisinopril 5 mg tablet 5 mg PO DAILY #90 tab-cap 04/27/20 diltiazem HCl 240 mg 240 mg PO DAILY #90 tab-cap 07/27/20 capsule,extended release 24 hr terazosin 2 mg capsule 2 mg PO DAILY #90 tab-cap 10/14/20 dapagliflozin 10 mg tablet 10 mg PO DAILY #90 tab 11/11/20 metformin [Glucophage] 1,000 mg PO DAILY #180 tab-cap 01/07/21 metoprolol succinate 100 mg 100 mg PO DAILY #90 tab 01/10/21 tablet,extended release 24 hr lovastatin 20 mg tablet 20 mg PO DAILY #90 tab-cap 01/12/21 nystatin 100,000 unit/gram topical 1 applic TOPICAL BID #30 g 02/03/21 cream bupropion HCl 150 mg 24 hr tablet, 150 mg PO DAILY 30 Days #30 tab-cap 02/28/21 extended release apixaban 5 mg tablet 5 mg PO BID #180 tab 04/11/21 oxycodone 5 mg PO Q6H PRN #10 tab 06/01/21 tamsulosin [Flomax] 0.4 mg PO DAILY #10 cap 06/01/21 ondansetron 4 mg PO Q6H PRN #10 tab 06/04/21 oxycodone 5 mg PO Q8H PRN #7 tab 06/04/21 Allergies Allergy/AdvReac Type Severity Reaction Status Date / Time No Known Allergies Allergy Verified 06/04/21 08:03 General Stated Complaint: Abd Prob TREVOR: 3 Review of Systems Constitutional Constitutional: Reports as per HPI, Denies chills, Denies fatigue, Denies fever(s) and Denies headache(s) ENT Ears, Nose, Mouth, and Throat: Denies headache(s) Cardiovascular Cardiovascular: Reports as per HPI, Denies chest pain and Denies dyspnea Respiratory Respiratory: Reports as per HPI, Denies cough and Denies dyspnea Gastrointestinal Gastrointestinal: Reports as per HPI Genitourinary Genitourinary: Reports as per HPI Musculoskeletal Musculoskeletal: Reports as per HPI Neurologic Neurologic: Denies headache(s) Endocrine Endocrine: Denies fatigue [facility] Medical History Anxiety (08/10/08) Asbestosis (08/10/08) Asthma (07/08/12) pt. denies this Atopic conjunctivitis (10/22/13) Atrial fibrillation Benign prostatic hyperplasia (02/25/13) Bladder cancer Carpal tunnel syndrome Chronic anticoagulation Chronic venous stasis Depressive disorder (02/25/13) Diabetes mellitus (02/25/13) Essential hypertension (06/24/13) Frequency of micturition (01/03/16) Glaucoma (10/22/13) B/L Gross hematuria High grade dysplasia in colonic adenoma Hyperlipidemia (02/25/13) Hypermetropia (10/22/13) Hypogonadism Idiopathic peripheral neuropathy Low back pain (08/10/08) Noncompliance Nuclear senile cataract (10/22/13) Obesity (08/10/08) Aviva-en-y 02/2014 Obstructive sleep apnea syndrome (08/10/08) cpap Olecranon bursitis Osteoarthritis (08/10/08) BILATERAL KNEE replacements Peptic reflux disease (08/10/08) Peripheral neuralgia Phimosis Presbyopia (10/22/13) Pterygium (08/10/08) LEFT EYE Regular astigmatism (10/22/13) Sensorineural hearing loss, bilateral (09/05/17) Tubular adenoma Tubular and tubulovillous adenoma 2011 --suggested repeat 2017 Umbilical hernia (08/18/12) Urgency of urination (01/03/16) Urinary tract infection Urothelial carcinoma Varicose veins of lower extremity (08/10/08) Venous insufficiency (chronic) (peripheral) Surgical History History of transurethral destruction of bladder lesion Ronnell Fundoplication Repair of umbilical hernia Laparoscopic Aviva-en-y surgery for weight loss S/P cholecystectomy (~01/04/21) acute hemorrhagic cholecystitis and xanthogranulomatous inflammation S/P colonoscopy Haddad-2011- tubular and tubulovillous polyps [place]- 2019- sessile serrated with low grade dysplacia, tubullovillous with high grade dysplacia and tubular adenomas S/P partial colectomy (~05/09/20) Status post abdominoplasty (05/23/16) Status post tonsillectomy Status post total knee replacement B/L Vasectomy Family History Mother Cancer Father Heart disease Sister Cancer Sister No problems noted. Brother No problems noted. Brother No problems noted. Brother No problems noted. Son No problems noted. Son No problems noted. Son No problems noted. Social History Smoking/Tobacco Use Status: Never Second Hand Exposure: Yes Smoking risk assessment performed?: Yes Alcohol Intake: current Alcohol Intake frequency: holidays/special occasions only Drug use: Never Substance use type: does not use Caregiver/Support person: No Household members: other Details: son Housing: apartment Communication Needs: None Do you need help understanding health information?: Never Pets and animals: No Do you think of yourself as: straight/heterosexual Current gender identity: male What is your relationship status?: How often do you talk on the phone with friends or family?: once per week How often do you get together with friends or relatives?: decline to answer How often do you attend bahai or hinduism services?: decline to answer Do you belong to any clubs or organized social groups?: no Panel score (0-1 are the most socially isolated patients): 0 What type of physical activity do you participate in: walking Duration: 15-30 minutes/day Frequency: 1-2 times per week Velia/Mormon: Protestant Special velia needs: No Seatbelt use: always Helmet use: No Drive intox or ride w/intox public transit trolley driver: No Do you feel safe at home: Yes Do you feel safe in your relationship?: Yes Exam Const General: cooperative, healthy appearing, uncomfortable, no acute distress and well developed Nutritional Appearance: well nourished and overweight Orientation: alert and awake HENNV Mouth: moist mucous membranes Resp Effort & Inspection: normal respiratory effort and no respiratory distress Auscultation: clear to auscultation bilaterally, no rales, no rhonchi and no wheezes Cardio Rate: regular rate Rhythm: regular rhythm Heart Sounds: S1 normal and S2 normal GI Inspection: normal to inspection, no edema and non-distended Palpation: soft, no hepatosplenomegaly, no guarding, no hernias, no pulsatile masses and tender (left sided around near flank ) with no rebound tenderness Percussion: normal to percussion Auscultation: normal bowel sounds Back/Spine/Pelvis Back: CVA tenderness (left) Skin General skin exam: no rashes or lesions noted Neuro General: patient alert and patient awake Cognition: normal cognition Speech: speech normal Gait: normal gait Psych Appearance: grossly normal and well kempt Mental Status: mental status grossly normal Speech and Movement: speech and movement normal Course Vital Signs Vital signs: Vital Signs Temperature 36.3 C L 06/04/21 07:58 Pulse 103 H 06/04/21 07:58 Blood Pressure 170/106 H 06/04/21 07:58 Pulse Oximetry 96 06/04/21 07:58 Temperature 36.3 C L 06/04/21 07:58 Temperature Source Temporal Artery Scan 06/04/21 07:58 Pulse 103 H 06/04/21 07:58 Respiratory Effort Non-Labored 06/04/21 08:01 Blood Pressure 170/106 H 06/04/21 07:58 Blood Pressure Position Sitting 06/04/21 07:58 Pulse Oximetry 96 06/04/21 07:58 Oxygen Delivery Method Room Air 06/04/21 07:58 Oxygen Flow Rate 0 06/04/21 07:58 Pain Level 9 06/04/21 07:58
[2021-06-04 08:37] LABS: Abs Immature Grans 0.12 10^3/uL (0.0-0.06); Absolute Basophil Count 0.02 10^3/uL (0.0-0.2); Absolute Lymphocyte Count 0.53 10^3/uL (1.2-3.4); Absolute Monocyte Count 1.24 10^3/uL (0.1-0.8); Basophils % 0.1; Eosinophils % 0.3; HCT 42.6 % (40.0-50.0); Immature Grans % 0.8; Lymphocytes % 3.4; MCH 28.9 pg (27.0-33.0); MCHC 32.9 % (32.0-36.0); MCV 87.8 fL (80-95); MPV 10.4 fL (8.0-11.0); Monocytes % 7.9; Neutrophils % 87.5; Nucleated RBC 0 %; RBC 4.85 10^6/uL (4.36-5.78); RDW 13.2 % (11.8-14.1); RDW-SD 42.5 fL; WBC 15.73 10^3/uL (4.4-10.8)
[2021-06-04 08:38] LABS: Absolute Eosinophil Count 0.05 10^3/uL (0.0-0.7); Absolute Neutrophil Count 13.76 10^3/uL (1.2-6.7)
[2021-06-04 08:50] LABS: ALT 23 U/L (16-63); AST 16 U/L (15-37); Albumin 2.7 g/dL (3.4-5.0); Alkaline Phosphatase 148 U/L (46-116); Anion Gap 12.2 mmol/L (3-11); BUN 28 mg/dL (7-18); Bilirubin, Total 1.2 mg/dL (0.2-1.0); CO2 24.8 mmol/L (21.0-32.0); CREATININE 1.7 mg/dL (0.70-1.30); Chloride 95 mmol/L (98-107); Estimated GFR 39.93 (mL/min/1.73m2); Glucose 407 mg/dL (74-106); Potassium 3.9 mmol/L (3.5-5.1); Sodium 132 mmol/L (136-145); Total Protein 7.7 g/dL (6.4-8.2)
[2021-06-04] MEDS: oxyCODONE 5 MG TAB PO (08:54)
[2021-06-04] MEDS: Ondansetron O.D.T. 4 MG TABEF PO (08:54)
[2021-06-04 08:55] LABS: Diff Comment Diff Reviewed; Platelet Count 258 10^3/uL (130-400); RBC Morphology Normal
[2021-06-04 10:08] LABS: Bilirubin Small (Negative); Blood Small (Negative); Clarity Sl Cloudy (Clear); Glucose 500 mg/dL (Negative); Ketones 40 mg/dL (Negative); Leukocyte Esterase Negative (Negative); Nitrite Negative (Negative); pH 5.5 (5-8)
[2021-06-04 10:16] LABS: Bacteria Few HPF (Negative); Casts Negative LPF (Negative); Epithelial Cells Few HPF (Negative); Mucus Trace (Negative); WBC 0-2 HPF (0-5)
[2021-06-04 10:17] LABS: C & S Indicated? Yes; Crystals Rare Amorphous HPF (Negative)
[2021-06-04] MEDS: Docusate Sodium 100 MG CAP PO (10:24)
[2021-06-04 11:10] VITALS: BP 144/89; PULSE 115; RESP 20; TEMP 36.1; O2SAT 97
== END 2021-06-04 11:17 | disposition home or self-care (01) ==
PROVIDERS: Emergency Provider Physician Assistant
DX: N20.1 Calculus of ureter (principal); E11.65 Type 2 diabetes mellitus with hyperglycemia; D72.829 Elevated white blood cell count, unspecified; R79.89 Other specified abnormal findings of blood chemistry
CPT/HCPCS: 36415; 80053; 87077; 99283; 81003; 81015; 85025; 87086

== ENCOUNTER → 2021-06-05 13:59 | Outpatient (BNVA) | payer OTHER, SELFPAY | PROVIDERS: Visit Provider Urology | DX: N20.1 Calculus of ureter (principal); J44.9 Chronic obstructive pulmonary disease, unspecified; C67.9 Malignant neoplasm of bladder, unspecified | CPT/HCPCS: 99213 ==

== ENCOUNTER 2021-06-06 02:18 | Outpatient (CLI) | payer OTHER, SELFPAY ==
[2021-06-06 13:57] LABS: Source Nasal/Nares
[2021-06-06 15:59] LABS: COVID-19 PCR Negative (Negative)
== END 2021-06-06 02:19 | disposition home or self-care (01) ==
LOC: LBO 02:19
PROVIDERS: PCP Internal Medicine; Visit Provider Urology
DX: Z20.822 Contact with and (suspected) exposure to COVID-19 (principal); Z01.818 Encounter for other preprocedural examination
CPT/HCPCS: 87635

== ENCOUNTER 2021-06-08 14:11 | Inpatient (IN) | payer OTHER, SELFPAY ==
--- NOTE | 2021-06-07 14:07 | W.ANESPRE ---
General Info Date of Service Date Performed: 06/08/21 Height: 5 ft 9 in Weight: 97.522 kg Body Mass Index (BMI): 31.7 Surgical Procedure: Operation Date: 06/08/21 07:40 Proposed Procedures Side Surgeon p Cystoscopy, left retrograde pyelogram, left flexible ureteroscopy, holmium laser lithotripsy Left Tamir Osuna MD Meds Allergies and Home Medications Allergies Allergy/AdvReac Type Severity Reaction Status Date / Time No Known Allergies Allergy Verified 06/08/21 06:45 Home Medication Medication Instructions Recorded calcium carbonate-vitamin D3 2 ea PO DAILY 03/29/14 [Calcium 600 + D(3)] cyanocobalamin (vitamin B-12) 500 mcg PO DAILY 03/29/14 [Vitamin B-12] multivitamin [Daily Vitamin] 2 ea PO DAILY 03/29/14 Vitamin C 1,000 mg PO DAILY 01/03/18 omega-3 fatty acids [Fish Oil 2,400 mg PO DAILY 10/20/18 Concentrate] ferrous sulfate, dried 159 mg (45 159 mg PO DAILY 07/28/19 mg iron) tablet,extended release finasteride 5 mg tablet 5 mg PO DAILY #90 tab 04/27/20 lisinopril 5 mg tablet 5 mg PO DAILY #90 tab-cap 04/27/20 diltiazem HCl 240 mg 240 mg PO DAILY #90 tab-cap 07/27/20 capsule,extended release 24 hr terazosin 2 mg capsule 2 mg PO DAILY #90 tab-cap 10/14/20 dapagliflozin 10 mg tablet 10 mg PO DAILY #90 tab 11/11/20 metformin [Glucophage] 1,000 mg PO DAILY #180 tab-cap 01/07/21 metoprolol succinate 100 mg 100 mg PO DAILY #90 tab 01/10/21 tablet,extended release 24 hr lovastatin 20 mg tablet 20 mg PO DAILY #90 tab-cap 01/12/21 nystatin 100,000 unit/gram topical 1 applic TOPICAL BID #30 g 02/03/21 cream bupropion HCl 150 mg 24 hr tablet, 150 mg PO DAILY 30 Days #30 tab-cap 02/28/21 extended release apixaban 5 mg tablet 5 mg PO BID #180 tab 04/11/21 furosemide 20 mg PO DAILY 06/01/21 oxycodone 5 mg PO Q6H PRN #10 tab 06/01/21 tamsulosin [Flomax] 0.4 mg PO DAILY #10 cap 06/01/21 triamcinolone acetonide 1 applic TOPICAL DAILY 06/01/21 ondansetron 4 mg PO Q6H PRN #10 tab 06/04/21 oxycodone 5 mg PO Q8H PRN #7 tab 06/04/21 PFSH Active Problems Active Problems: Problem Status Onset Code Ureterolithiasis N20.1 Hyperglycemia R73.9 Elevated WBCs D72.829 Creatinine elevation R79.89 Diabetic leg ulcer E11.622, L97.909 Status post cholecystectomy Z90.49 Phimosis N47.1 Dysplastic colon polyp K63.5 Chronic venous stasis I87.8 High grade dysplasia in colonic adenoma D12.6 Obstructive sleep apnea syndrome 08/10/08 G47.33 Diabetes mellitus 02/25/13 E11.9 Atrial fibrillation Urothelial carcinoma C68.9 Essential hypertension 06/24/13 I10 Low back pain 08/10/08 M54.5 Venous insufficiency (chronic) (peripheral) I87.2 Medical History Medical History Anxiety (08/10/08) Asbestosis (08/10/08) Asthma (07/08/12) pt. denies this Atopic conjunctivitis (10/22/13) Atrial fibrillation Benign prostatic hyperplasia (02/25/13) Bladder cancer Carpal tunnel syndrome Chronic anticoagulation Chronic venous stasis Depressive disorder (02/25/13) Diabetes mellitus (02/25/13) Essential hypertension (06/24/13) Frequency of micturition (01/03/16) Glaucoma (10/22/13) B/L Gross hematuria High grade dysplasia in colonic adenoma Hyperlipidemia (02/25/13) Hypermetropia (10/22/13) Hypogonadism Idiopathic peripheral neuropathy Low back pain (08/10/08) Noncompliance Nuclear senile cataract (10/22/13) Obesity (08/10/08) Aviva-en-y 02/2014 Obstructive sleep apnea syndrome (08/10/08) cpap Olecranon bursitis Osteoarthritis (08/10/08) BILATERAL KNEE replacements Peptic reflux disease (08/10/08) Peripheral neuralgia Phimosis Presbyopia (10/22/13) Pterygium (08/10/08) LEFT EYE Regular astigmatism (10/22/13) Sensorineural hearing loss, bilateral (09/05/17) Tubular adenoma Tubular and tubulovillous adenoma 2011 --suggested repeat 2017 Umbilical hernia (08/18/12) Urgency of urination (01/03/16) Urinary tract infection Urothelial carcinoma Varicose veins of lower extremity (08/10/08) Venous insufficiency (chronic) (peripheral) Surgical History Surgical History History of transurethral destruction of bladder lesion Ronnell Fundoplication Repair of umbilical hernia Laparoscopic Aviva-en-y surgery for weight loss S/P cholecystectomy (~01/04/21) acute hemorrhagic cholecystitis and xanthogranulomatous inflammation S/P colonoscopy Haddad-2011- tubular and tubulovillous polyps [place]- 2019- sessile serrated with low grade dysplacia, tubullovillous with high grade dysplacia and tubular adenomas S/P partial colectomy (~05/09/20) Status post abdominoplasty (05/23/16) Status post tonsillectomy Status post total knee replacement B/L Vasectomy Tobacco Smoking/Tobacco Use Status: Never Second hand exposure: Yes Alcohol Alcohol Intake: never Substance Use Substance use: Never Substance use type: does not use Vital Signs and Lab Results Vital Signs Most Recent Vital Signs in EMR: Temp Pulse Resp BP Pulse Ox 36.7 C 123 H 18 158/93 H 99 06/08/21 06:37 06/08/21 06:37 06/08/21 06:37 06/08/21 06:37 06/08/21 06:37 Lab Results Blood Type / Crossmatch: No Data to Display Complete Blood Count: White Blood Count 15.73 10^3/uL (4.4-10.8) H 06/04/21 08:20 06/04/21 Red Blood Count 4.85 10^6/uL (4.36-5.78) 06/04/21 08:20 06/04/21 Hemoglobin 14.0 g/dL (13.5-17.5) 06/04/21 08:20 06/04/21 Hematocrit 42.6 % (40.0-50.0) 06/04/21 08:20 06/04/21 Platelet Count 258 10^3/uL (130-400) 06/04/21 08:20 06/04/21 Venous Blood Lactate 1.6 mmol/L (0.6-1.4) H 06/01/21 07:25 06/01/21 Complete Metabolic Panel: Sodium Level 132 mmol/L (136-145) L 06/04/21 08:20 06/04/21 Potassium Level 3.9 mmol/L (3.5-5.1) 06/04/21 08:20 06/04/21 Chloride Level 95 mmol/L (98-107) L 06/04/21 08:20 06/04/21 Carbon Dioxide Level 24.8 mmol/L (21.0-32.0) 06/04/21 08:20 06/04/21 Blood Urea Nitrogen 28 mg/dL (7-18) H 06/04/21 08:20 06/04/21 Creatinine 1.7 mg/dL (0.70-1.30) H 06/04/21 08:20 06/04/21 Estimated GFR/1.73 m2 39.93 (mL/min/1.73m2) 06/04/21 08:20 06/04/21 Calcium Level 9.0 mg/dL (8.5-10.1) 06/04/21 08:06/04/21 Albumin 2.7 g/dL (3.4-5.0) L 06/04/21 08:20 06/04/21 Glucose Level 407 mg/dL (74-106) H 06/04/21 08:20 06/04/21 Liver Function Panel: Alanine Aminotransferase (ALT/SGPT) 23 U/L (16-63) 06/04/21 08:20 06/04/21 Aspartate Amino Transf (AST/SGOT) 16 U/L (15-37) 06/04/21 08:06/04/21 Coagulation Panel: INR International Normalized Ratio 1.1 (0.9-1.1) 06/01/21 07:25 06/01/21 Prothrombin Time 10.9 sec (9.3-11.0) 06/01/21 07:25 06/01/21 Activated Partial Thromboplast Time 25.6 sec (21.0-27.5) 06/01/21 07:25 06/01/21 Cardiac Panel: Troponin I < 0.05 ng/mL (<0.06) 06/01/21 07:25 06/01/21 Arterial Blood Gas: No Data to Display Venous Blood Gas: No Data to Display Pancreas Panel: Lipase 69 U/L (73-393) 06/01/21 07:25 06/01/21 Thyroid Panel: No Data to Display Infectious Disease: Coronavirus (COVID-19)(PCR) Negative (Negative) 06/06/21 10:57 06/06/21 Coronavirus 2019 Source Nasal/Nares 06/06/21 10:57 06/06/21 Blood Cultures: No Data to Display Toxicology Panel: No Data to Display Imaging and Studies Imaging and Studies EKG Summary: 06/01/21: a fib, 92-128. lowvoltage. Echocardiogram Summary: Normal left ventricular wall thickness and chamber size. Estimated ejection fraction is 55 to 60%. There are no segmental wall motion abnormalities Right ventricular size is borderline. Normal right ventricular systolic function Left atrium is severely dilated. The right atrium is moderately dilated Trileaflet aortic valve with trace regurgitation Thickened mitral leaflets with moderate regurgitation Structurally normal tricuspid valve with moderate regurgitation. Estimated right ventricular systolic pressure is 42 mmHg, mild pulmonary hypertension The pulmonic valve is structurally normal 12/01/20 Anesthesia Assessment and Plan Anesthesia History Personal History: No History of Anesthesia Complications Family History: No Family History of Anesthesia Complications Exercise Tolerance Exercise Tolerance: Metabolic Equivalents<4 Cardiac & Pulmonary Exam Cardiac Exam: Normal S1/S2 Heart Sounds Pulmonary Exam: Clear Bilateral Breath Sounds Airway Exam Known Difficult Airway: No Mallampati Class: 4 Mouth Opening: Normal (> 3cm) Thyromental Distance: Less than 3 cm Facial Hair: Full Pang Neck Range of Motion: Full ROM Neck Circumference: Normal Teeth Condition: Normal Dentition ASA Classification ASA Score: ASA 3 Emergency Case?: No NPO Status NPO Status: NPO Clears >2 hours, Solids >8 hours Anesthesia Plan Resuscitation Status: Full Code Anesthesia Technique: General Anesthesia Airway Planned: LMA Monitors Used: Standard Monitors Preoperative Comments:: 70 yo male for ureterolithiasis/left uretal stone. Sig PMHX for COPD, HTN (metoprolol, lisinopril), atrial fib (diltiazem, apixaban), DM, Previous anesthesia: mccullough 2 grade 1, easy mask, and GA no airway in the past. Did need metoprolol for HR control in the past.
[2021-06-08] VITALS (42 sets, daily range): BP systolic 89–174; BP diastolic 33–148; PULSE 88–163; RESP 12–39; TEMP 36.2–37.1; O2SAT 92–99; BMI 31.7
--- NOTE | 2021-06-08 | DI.RAD_ITS ---
Exam(s) XR PORTABLE CHEST AP EXAM: XR PORTABLE CHEST AP CLINICAL HISTORY: Shortness of breath TECHNIQUE: 2D digital imaging was performed. COMPARISON: CT CT ABDOMEN PELVIS W from 06/01/[address] ABDOMEN PELVIS W from 06/01/2021 FINDINGS: LUNGS: Clear where visualized. Left lung base not well evaluated.. No pleural abnormality seen. HEART: Enlarged. MEDIASTINUM: Normal. BONES: Degenerative changes in the spine and both shoulders. IMPRESSION: Limited exam. No acute pulmonary findings. A left basilar infiltrate is not excluded on this singl e view. DATA REPOSITORY: RADIATION DOSE DELIVERED:
--- NOTE | 2021-06-08 06:50 | W.PM.HP.N ---
Date of service: 06/08/21 Time of Service: 06:50 Assessment and Plan Assessment and plan (1) Ureterolithiasis: Status: Acute Assessment and plan: For cystoscopy, retrograde pyelogram, possible ureteroscopy with holmium laser lithotripsy and possible ureteral stent History of Present Illness History of Present Illness Chief Complaint: Left ureteral stone Narrative: This is a 70-year-old gentleman who has a history of urothelial cell carcinoma of the bladder. As part of his initial evaluation, he had a CT urogram. A left lower pole kidney stone was identified. The stone remained asymptomatic until last week when he developed left abdominal pain. He was seen in the emergency room and his CT scan demonstrated migration of the stone to the left proximal ureter. He did not have any signs of sepsis. We asked him to stay off his anticoagulant in case we needed any surgical intervention. Over the weekend, his pain recurred and he presented to the emergency room again. His pain is associated with nausea but no fever or chills. He is not having any gross hematuria. He is on Eliquis for atrial fibrillation but has discontinued the medication for the past 3 days.. Review of Systems Narrative: No fevers or chills No vision change or dysphasia Hx diabetes. No thyroid dysfunction Chronic cough with COPD. No sputum production or hemoptysis Hx atrial fibrillation. No chest pain No hepatitis, ulcers, jaundice No seizures, strokes or peripheral neuropathy No bleeding disorders or anemia No gout PFSH Medical History Anxiety (08/10/08) Asbestosis (08/10/08) Asthma (07/08/12) pt. denies this Atopic conjunctivitis (10/22/13) Atrial fibrillation Benign prostatic hyperplasia (02/25/13) Bladder cancer Carpal tunnel syndrome Chronic anticoagulation Chronic venous stasis Depressive disorder (02/25/13) Diabetes mellitus (02/25/13) Essential hypertension (06/24/13) Frequency of micturition (01/03/16) Glaucoma (10/22/13) B/L Gross hematuria High grade dysplasia in colonic adenoma Hyperlipidemia (02/25/13) Hypermetropia (10/22/13) Hypogonadism Idiopathic peripheral neuropathy Low back pain (08/10/08) Noncompliance Nuclear senile cataract (10/22/13) Obesity (08/10/08) Aviva-en-y 02/2014 Obstructive sleep apnea syndrome (08/10/08) cpap Olecranon bursitis Osteoarthritis (08/10/08) BILATERAL KNEE replacements Peptic reflux disease (08/10/08) Peripheral neuralgia Phimosis Presbyopia (10/22/13) Pterygium (08/10/08) LEFT EYE Regular astigmatism (10/22/13) Sensorineural hearing loss, bilateral (09/05/17) Tubular adenoma Tubular and tubulovillous adenoma 2011 --suggested repeat 2017 Umbilical hernia (08/18/12) Urgency of urination (01/03/16) Urinary tract infection Urothelial carcinoma Varicose veins of lower extremity (08/10/08) Venous insufficiency (chronic) (peripheral) Surgical History History of transurethral destruction of bladder lesion Ronnell Fundoplication Repair of umbilical hernia Laparoscopic Aviva-en-y surgery for weight loss S/P cholecystectomy (~01/04/21) acute hemorrhagic cholecystitis and xanthogranulomatous inflammation S/P colonoscopy Haddad-2011- tubular and tubulovillous polyps [place]- 2019- sessile serrated with low grade dysplacia, tubullovillous with high grade dysplacia and tubular adenomas S/P partial colectomy (~05/09/20) Status post abdominoplasty (05/23/16) Status post tonsillectomy Status post total knee replacement B/L Vasectomy Family History Mother Cancer Father Heart disease Sister Cancer Sister No problems noted. Brother No problems noted. Brother No problems noted. Brother No problems noted. Son No problems noted. Son No problems noted. Son No problems noted. Social History Smoking/Tobacco Use Status: Never Second Hand Exposure: Yes Smoking risk assessment performed?: Yes Alcohol Intake: never Drug use: Never Substance use type: does not use Caregiver/Support person: No Household members: other Details: son Housing: apartment Communication Needs: None Do you need help understanding health information?: Never Pets and animals: No Do you think of yourself as: straight/heterosexual Current gender identity: male What is your relationship status?: How often do you talk on the phone with friends or family?: once per week How often do you get together with friends or relatives?: decline to answer How often do you attend orthodox or oriental orthodox services?: decline to answer Do you belong to any clubs or organized social groups?: no Panel score (0-1 are the most socially isolated patients): 0 What type of physical activity do you participate in: walking Duration: 15-30 minutes/day Frequency: 1-2 times per week Velia/Catholic: Hinduism Special velia needs: No Seatbelt use: always Helmet use: No Drive intox or ride w/intox test car driver: No Do you feel safe at home: Yes Do you feel safe in your relationship?: Yes Meds Allergies and Home Medications Allergies Allergy/AdvReac Type Severity Reaction Status Date / Time No Known Allergies Allergy Verified 06/08/21 06:45 Home Medications Medication Instructions Recorded Confirmed Type calcium carbonate-vitamin D3 2 ea PO DAILY 03/29/14 06/08/21 History [Calcium 600 + D(3)] cyanocobalamin (vitamin B-12) 500 mcg PO DAILY 03/29/14 06/08/21 History [Vitamin B-12] multivitamin [Daily Vitamin] 2 ea PO DAILY 03/29/14 06/08/21 History Vitamin C 1,000 mg PO DAILY 01/03/18 06/08/21 History omega-3 fatty acids [Fish Oil 2,400 mg PO DAILY 10/20/18 06/08/21 History Concentrate] ferrous sulfate, dried 159 mg (45 159 mg PO DAILY 07/28/19 06/08/21 History mg iron) tablet,extended release finasteride 5 mg tablet 5 mg PO DAILY #90 tab 04/27/20 06/08/21 Rx lisinopril 5 mg tablet 5 mg PO DAILY #90 tab-cap 04/27/20 06/08/21 Rx diltiazem HCl 240 mg 240 mg PO DAILY #90 tab-cap 07/27/20 06/08/21 Rx capsule,extended release 24 hr terazosin 2 mg capsule 2 mg PO DAILY #90 tab-cap 10/14/20 06/08/21 Rx dapagliflozin 10 mg tablet 10 mg PO DAILY #90 tab 11/11/20 06/08/21 Rx metformin [Glucophage] 1,000 mg PO DAILY #180 tab-cap 01/07/21 06/08/21 Rx metoprolol succinate 100 mg 100 mg PO DAILY #90 tab 01/10/21 06/08/21 Rx tablet,extended release 24 hr lovastatin 20 mg tablet 20 mg PO DAILY #90 tab-cap 01/12/21 06/08/21 Rx nystatin 100,000 unit/gram topical 1 applic TOPICAL BID #30 g 02/03/21 06/06/21 Rx cream bupropion HCl 150 mg 24 hr tablet, 150 mg PO DAILY 30 Days #30 tab-cap 02/28/21 06/08/21 Rx extended release apixaban 5 mg tablet 5 mg PO BID #180 tab 04/11/21 06/08/21 Rx furosemide 20 mg PO DAILY 06/01/21 06/08/21 History oxycodone 5 mg PO Q6H PRN #10 tab 06/01/21 06/06/21 Rx tamsulosin [Flomax] 0.4 mg PO DAILY #10 cap 06/01/21 06/08/21 Rx triamcinolone acetonide 1 applic TOPICAL DAILY 06/01/21 06/08/21 History ondansetron 4 mg PO Q6H PRN #10 tab 06/04/21 06/08/21 Rx oxycodone 5 mg PO Q8H PRN #7 tab 06/04/21 06/08/21 Rx Exam Const General: cooperative and other (appears uncomfortable) Neck Neck: supple Resp Effort & Inspection: normal respiratory effort Auscultation: clear to auscultation bilaterally Cardio Rate: regular rate Rhythm: regular rhythm GI Palpation: soft and no masses Neuro General: patient alert and patient oriented x3 Results Last Vital Signs Temp 36.7 C 06/08/21 06:37 Pulse 123 H 06/08/21 06:37 Resp 18 06/08/21 06:37 BP 158/93 H 06/08/21 06:37 Pulse Ox 99 06/08/21 06:37
--- NOTE | 2021-06-08 07:00 | DI.RAD_ITS ---
Exam(s) XR RETROGRADE IN OR EXAM: XR RETROGRADE IN OR CLINICAL HISTORY: ureteral stone. TECHNIQUE: Fluoroscopy was provided for the referring physician for guidance with performing a retro grade examination. COMPARISON: No exams were available for comparison FINDINGS: Please see procedure note for details. Fluoro time 98.7 seconds RADIATION DOSE DELIVERED: linda Ventura=30.74 mGy
[2021-06-08] MEDS: Lactated Ringers 1,000 ML 80 ML IV ×2 (07:12→11:15)
[2021-06-08] MEDS: ceFAZolin 2,000 MG in Normal Saline 100 ML 200 MG IVPB (07:38)
[2021-06-08] MEDS: Omnipaque 300 MG/ML 50 ML BTL (09:06)
[2021-06-08] MEDS: Lidocaine 2% Jelly 6 ML SYR (09:09)
--- NOTE | 2021-06-08 09:14 | W.PM.DSUDISC ---
Discharge Plan Disposition Patient Disposition: HOME Condition: Stable Discharge Details Attending Provider: Tamir Osuna Primary Care Provider: Constantine Hill Home Meds and New Rx's Prescriptions: No Action finasteride 5 mg tablet 5 mg PO DAILY Qty: 90 RF: 3 lisinopril 5 mg tablet 5 mg PO DAILY Qty: 90 RF: 3 metoprolol succinate 100 mg tablet extended release 24 hr 100 mg PO DAILY Qty: 90 RF: 3 nystatin 100,000 unit/gram cream 1 applic topical BID Qty: 30 RF: 2 multivitamin [Daily Vitamin] 1 EACH tablet 2 ea PO DAILY RF: 0 cyanocobalamin (vitamin B-12) [Vitamin B-12] 500 MCG tablet 500 mcg PO DAILY RF: 0 calcium carbonate-vitamin D3 [Calcium 600 + D(3)] 1 EACH tablet 2 ea PO DAILY RF: 0 iron 159 mg (45 mg iron) tablet extended release 159 mg PO DAILY RF: 0 diltiazem HCl [Cardizem CD] 240 mg capsule,extended release 24hr 240 mg PO DAILY Qty: 90 RF: 3 terazosin 2 mg capsule 2 mg PO DAILY Qty: 90 RF: 3 Farxiga 10 mg tablet 10 mg PO DAILY Qty: 90 RF: 3 lovastatin 20 mg tablet 20 mg PO DAILY Qty: 90 RF: 3 bupropion HCl 150 mg tablet extended release 24 hr 150 mg PO DAILY 30 Days Qty: 30 RF: 1 Eliquis 5 mg tablet 5 mg PO BID Qty: 180 RF: 0 metformin [Glucophage] 1,000 mg tablet 1,000 mg PO DAILY Qty: 180 RF: 4 triamcinolone acetonide 0.1 % ointment 1 applic TOPICAL DAILY RF: 0 furosemide 20 mg tablet 20 mg PO DAILY RF: 0 tamsulosin [Flomax] 0.4 mg capsule 0.4 mg PO DAILY Qty: 10 RF: 0 oxycodone 5 mg tablet 5 mg PO Q6H PRN (Reason: pain) Qty: 10 RF: 0 Vitamin C 1,000 MG tablet extended release 1,000 mg PO DAILY RF: 0 omega-3 fatty acids [Fish Oil Concentrate] 1,000 mg Capsule 2,400 mg PO DAILY RF: 0 ondansetron 4 mg tablet,disintegrating 4 mg PO Q6H PRN (Reason: nausea and vomiting) Qty: 10 RF: 0 oxycodone 5 mg tablet 5 mg PO Q8H PRN (Reason: pain) Qty: 7 RF: 0 Discharge Instructions Additional Instructions: will need repeat procedure for cystoscopy and stent removal - my office will contact pt but he will also need to see his PCP for better diabetes and a fib control before he can have anesthesia at our facility again may restart Eliquis once no blood is seen in urine Activity:: Activity as Tolerated Shower/Bathe:: 24 hours Diet:: As Tolerated Discharge Orders Discharge Orders: Discharge Order (Routine); Ordered 06/08/21 Ordered By: Tamir Osuna DS: Diagnosis Discharge Diagnosis (1) Ureterolithiasis: Status: Acute
--- NOTE | 2021-06-08 09:22 | W.PM.OP ---
Date of service: 06/08/21 Time of Service: : Operative Note Operative Note DATE OF PROCEDURE: 06/08/21 PRE-OP DIAGNOSIS: Left ureteral stone POST-OP DIAGNOSIS: same PROCEDURE: cystoscopy, left retrograde pyelograme, left ureteroscopy with holmium laser lithotripsy, insert left ureteral stent SURGEON: Tamir Osuna ANESTHESIA TYPE: Local By Surgeon and General LMA/ETT Refer to Anesthesia Record ESTIMATED BLOOD LOSS: 25 PATHOLOGY: none sent Patient was transported to: PACU Patient's condition: stable Implants: 4.8 Japanese ureteral stent 22 to 30 cm in length Indications: This is a 70-year-old gentleman who has a history of urothelial cell carcinoma of the bladder. As part of his initial work-up, he had a CT scan. We found a nonobstructing stone in the lower pole of the left kidney. He presented to the emergency room this past week with left renal colic. His stone had migrated to the left proximal ureter. His symptoms have persisted and he presents now for stone manipulation. Findings: Stone pushed from proximal ureter back into the lower pole and treated Procedure Description: The patient was brought to the operating room on 06/08/2021. He was given preoperative IV antibiotics. After successful induction of general anesthesia, he was placed in the dorsal lithotomy position. His genitalia was prepped and draped. 2% Xylocaine jelly was instilled into the urethra. A 22 Japanese rigid cystoscope was then passed through the urethra into the bladder. The urethra and bladder were inspected with a 30 degree lens. The left ureteral orifice was identified and the orifice was cannulated with a 6 Japanese access catheter. Retrograde pyelogram was obtained by injecting Omnipaque through the access catheter under fluoroscopic guidance. The stone could be seen in the proximal ureter. A Glidewire was then advanced to the access catheter and the catheter was removed. A dual-lumen catheter was advanced over the wire and a second wire was positioned. We chose one of the wires as a working wire and the other as a safety wire. We passed a ureteral access sheath over the working wire and positioned the tip of the sheath in the mid ureter. The flexible ureteroscope was then introduced through the access sheath and advanced up to the proximal ureter. The stone was no longer visible in the proximal ureter but was present in the lower pole calyx. We then were able to treat the stone with a 365 holmium laser fiber. We used a power setting of 0.8 and a rate of 8 to fragment the stone quite well. Visibility became an issue, and I was not certain if all stone fragments had been addressed. We then elected to place a ureteral stent and make arrangements for a return to the operating room to remove the stent and run the flexible ureteroscope back up to ensure all stone fragments had been addressed. We chose a 4.8 Japanese variable length stent and advanced it over the safety wire. In position and the stent, it was advanced too far up the ureter, so I reintroduced first the semirigid ureteroscope then the flexible ureteroscope and was able to grasp the stent and withdraw it back down into the bladder. Positioning of the stent was then confirmed both fluoroscopically and cystoscopically. The bladder was emptied and the cystoscope was withdrawn. The patient tolerated this procedure well and was taken to the recovery room in stable condition.
[2021-06-08] MEDS: Phenazopyridine 200 MG TAB PO (09:46)
--- NOTE | 2021-06-08 10:53 | W.ANESPOSTOP ---
Postoperative Evaluation Date, Time and Location Date Performed: 06/08/21 Time Performed: 10:53 Patient Location: Day Surgery Unit Vital Signs Most Recent Imported Vital Signs: Most Recent Vital Signs Temp Pulse Resp BP Pulse Ox 36.2 C L 98 H 16 141/90 H 95 06/08/21 10:01 06/08/21 10:06/08/21 10:06/08/21 10:01 06/08/21 10:01 Pain Score Most Recent Pain Score: Most Recent Pain Score Pain Level 3 06/08/21 10:01 Assessment Mental Status: Awake (Alert & Oriented to Patient Baseline) Airway and Respiratory Function: Patent airway with normal (patient baseline) respiratory exam Cardiovascular Function: Hemodynamically Stable Hydration Status: Adequately Hydrated Nausea & Vomiting: No Nausea or Vomiting Pain: Pain is tolerable per patient Peripheral Nerve Block: Patient did not receive a nerve block Teaching Patient Teaching: Advised to seek followup for the following concerns (See explanation) (Rate control of Atrial fibrillation, was 120's in OR. Better glucose control as BG was around 373.) Concerns: Other Postoperative Comments:: I recommend against any elective procedures until he has better control of glucose and heart rate.
[2021-06-08] MEDS: Metoprolol 5 MG/5 ML VIAL ×2 (11:16→11:22)
--- NOTE | 2021-06-08 11:36 | PDOC.ANES ---
Date of service: 06/08/21 Time of Service: 11:36 Anesthesia Note Report Anesthesia Note: Pt. was changing in D[facility] Bathroom into normal clothing and asked for help. Upon entering, patient appeared short of breath. He was moved to chair and placed onto monitors. His HR was 160, RR 30's and states he feels cold. He denies any chest pain/pressure or SOB at that time. He was brought back to PACU and an IV was established. He was given 5mg lopresor X2 with HR decrease to 100-118. Pt. states he feels better, feels his breathing is better (although previously denies SOB). He is being warmed despite normothermia. Plan is to give him his usual daily does of ER diltiazem which he did not take of 240mg and a dose of 75 mg metoprolol. If he continues to do well, he will be sent home to see PCP for further optimization. I attempted to contact his son Momo but he did not answer the phone.
[2021-06-08] MEDS: dilTIAZem CD 120 MG CAPCR 240 MG PO (11:37)
--- NOTE | 2021-06-08 12:15 | RT.EKG_ITS ---
APPROVED REPORT Exam: Resting ECG Reason for Exam: Cherelle Azul Pt. is in PACU for 1300 ECG Patient Location: O HR:124 bpm ECG Measurements Heart Rate 124 AXIS CO [id number] P [id number] QRSd 98 QRS 63 QT 336 T 0 QTc 483 Conclusion Atrial fibrillation...? atrial activity Anteroseptal infarct, age indeterminate...Q >35mS, T neg, V1-V2
[2021-06-08] MEDS: fentaNYL 100 MCG/2 ML VIAL IVP (13:12)
[2021-06-08 13:46] LABS: Anion Gap 12.8 mmol/L (3-11); BUN 35 mg/dL (7-18); CO2 23.2 mmol/L (21.0-32.0); Calcium 8.2 mg/dL (8.5-10.1); Chloride 99 mmol/L (98-107); Glucose 319 mg/dL (74-106); Potassium 3.7 mmol/L (3.5-5.1); Sodium 135 mmol/L (136-145); Troponin I < 0.05 ng/mL (<0.06)
--- NOTE | 2021-06-08 14:17 | W.PM.HP.N ---
Date of service: 06/08/21 Time of Service: 13:20 Assessment and Plan Assessment and plan (1) Atrial fibrillation with rapid ventricular response: Status: Acute Assessment and plan: Rates are better with resumption of home meds. Additionally, pain is contributing. Will continue monitoring on tele with prn IV lopressor. If needed, will increase home med doses tomorrow. (2) Acute kidney injury superimposed on chronic kidney disease: Status: Acute Assessment and plan: IVF. hold metformin. (3) Diabetes mellitus: Status: Chronic Assessment and plan: Cover with SSI in the hospital. Would not resume meformin on discharge unless kidney function permits. Qualifiers: Diabetes mellitus type: type 2 Diabetes mellitus correction insulin use: with correction use Diabetes mellitus complication status: without complication Qualified Code(s): E11.9 - Type 2 diabetes mellitus without complications; Z79.4 - skilled nursing (current) use of insulin (4) Essential hypertension: Status: Chronic Assessment and plan: Continue home management (5) Obstructive sleep apnea syndrome: Status: Chronic Assessment and plan: Provide home CPAP (6) DVT prophylaxis: Status: Acute Assessment and plan: TEDS/SCDS. Will defer to urology as to when to resume apixaban (7) Discharge planning issues: Status: Acute Assessment and plan: Full code Anticipate discharge home tomorrow History of Present Illness History of Present Illness Chief Complaint: Afib with RVR, not feeling well post-op Narrative: Mr Rueda is a 70 year old male with PMHx of Afib on apixaban, NIDDM2, HTN, hyperlipidemia, nephrolithiasis, as well as h/o urothelial cell ca of the bladder, who underwent cystoscopy today with left retrograde pyelogram and laser lithotripsy with left ureteral stent insertion for a left ureteral stone by Dr Osuna. During and post-operatively, the patient was found to be in rapid Afib with HRs up to 130s-140s. This persisted despite numerous doses of IV metoprolol. When the patient came to it, he had admitted to not taking his medications for the last couple of days. Hospitalist consult was requested and resulted in observation of the patient overnight for the rapid Afib in addition to the patient not feeling well in general. By the time of my evaluation, the patient's only complaint was that he was having bladder pain. He was not retaining urine and this was relieved with IV fentanyl. Review of Systems All systems reviewed & are unremarkable except as noted in HPI and below [facility] Medical History Anxiety (08/10/08) Asbestosis (08/10/08) Asthma (07/08/12) pt. denies this Atopic conjunctivitis (10/22/13) Atrial fibrillation Benign prostatic hyperplasia (02/25/13) Bladder cancer Carpal tunnel syndrome Chronic anticoagulation Chronic venous stasis Depressive disorder (02/25/13) Diabetes mellitus (02/25/13) Essential hypertension (06/24/13) Frequency of micturition (01/03/16) Glaucoma (10/22/13) B/L Gross hematuria High grade dysplasia in colonic adenoma Hyperlipidemia (02/25/13) Hypermetropia (10/22/13) Hypogonadism Idiopathic peripheral neuropathy Low back pain (08/10/08) Noncompliance Nuclear senile cataract (10/22/13) Obesity (08/10/08) Aviva-en-y 02/2014 Obstructive sleep apnea syndrome (08/10/08) cpap Olecranon bursitis Osteoarthritis (08/10/08) BILATERAL KNEE replacements Peptic reflux disease (08/10/08) Peripheral neuralgia Phimosis Presbyopia (10/22/13) Pterygium (08/10/08) LEFT EYE Regular astigmatism (10/22/13) Sensorineural hearing loss, bilateral (09/05/17) Tubular adenoma Tubular and tubulovillous adenoma 2011 --suggested repeat 2017 Umbilical hernia (08/18/12) Urgency of urination (01/03/16) Urinary tract infection Urothelial carcinoma Varicose veins of lower extremity (08/10/08) Venous insufficiency (chronic) (peripheral) Surgical History History of transurethral destruction of bladder lesion Ronnell Fundoplication Repair of umbilical hernia Laparoscopic Aviva-en-y surgery for weight loss S/P cholecystectomy (~01/04/21) acute hemorrhagic cholecystitis and xanthogranulomatous inflammation S/P colonoscopy Haddad-2011- tubular and tubulovillous polyps Santiago- 2019- sessile serrated with low grade dysplacia, tubullovillous with high grade dysplacia and tubular adenomas S/P partial colectomy (~05/09/20) Status post abdominoplasty (05/23/16) Status post tonsillectomy Status post total knee replacement B/L Vasectomy Family History Mother Cancer Father Heart disease Sister Cancer Sister No problems noted. Brother No problems noted. Brother No problems noted. Brother No problems noted. Son No problems noted. Son No problems noted. Son No problems noted. Social History Smoking/Tobacco Use Status: Never Second Hand Exposure: Yes Smoking risk assessment performed?: Yes Alcohol Intake: never Drug use: Never Substance use type: does not use Caregiver/Support person: No Household members: other Details: son Housing: apartment Communication Needs: None Do you need help understanding health information?: Never Pets and animals: No Do you think of yourself as: straight/heterosexual Current gender identity: male What is your relationship status?: How often do you talk on the phone with friends or family?: once per week How often do you get together with friends or relatives?: decline to answer How often do you attend pentecostalism or bahai services?: decline to answer Do you belong to any clubs or organized social groups?: no Panel score (0-1 are the most socially isolated patients): 0 What type of physical activity do you participate in: walking Duration: 15-30 minutes/day Frequency: 1-2 times per week Velia/Gnosticist: Hindu Special velia needs: No Seatbelt use: always Helmet use: No Drive intox or ride w/intox local intermodal truck driver: No Do you feel safe at home: Yes Do you feel safe in your relationship?: Yes Meds Allergies and Home Medications Allergies Allergy/AdvReac Type Severity Reaction Status Date / Time No Known Allergies Allergy Verified 06/08/21 06:45 Home Medications Medication Instructions Recorded Confirmed Type calcium carbonate-vitamin D3 2 ea PO DAILY 03/29/14 06/08/21 History [Calcium 600 + D(3)] cyanocobalamin (vitamin B-12) 500 mcg PO DAILY 03/29/14 06/08/21 History [Vitamin B-12] multivitamin [Daily Vitamin] 2 ea PO DAILY 03/29/14 06/08/21 History Vitamin C 1,000 mg PO DAILY 01/03/18 06/08/21 History omega-3 fatty acids [Fish Oil 2,400 mg PO DAILY 10/20/18 06/08/21 History Concentrate] ferrous sulfate, dried 159 mg (45 159 mg PO DAILY 07/28/19 06/08/21 History mg iron) tablet,extended release finasteride 5 mg tablet 5 mg PO DAILY #90 tab 04/27/20 06/08/21 Rx lisinopril 5 mg tablet 5 mg PO DAILY #90 tab-cap 04/27/20 06/08/21 Rx diltiazem HCl 240 mg 240 mg PO DAILY #90 tab-cap 07/27/20 06/08/21 Rx capsule,extended release 24 hr terazosin 2 mg capsule 2 mg PO DAILY #90 tab-cap 10/14/20 06/08/21 Rx dapagliflozin 10 mg tablet 10 mg PO DAILY #90 tab 11/11/20 06/08/21 Rx metformin [Glucophage] 1,000 mg PO DAILY #180 tab-cap 01/07/21 06/08/21 Rx metoprolol succinate 100 mg 100 mg PO DAILY #90 tab 01/10/21 06/08/21 Rx tablet,extended release 24 hr lovastatin 20 mg tablet 20 mg PO DAILY #90 tab-cap 01/12/21 06/08/21 Rx nystatin 100,000 unit/gram topical 1 applic TOPICAL BID #30 g 02/03/21 06/06/21 Rx cream bupropion HCl 150 mg 24 hr tablet, 150 mg PO DAILY 30 Days #30 tab-cap 02/28/21 06/08/21 Rx extended release apixaban 5 mg tablet 5 mg PO BID #180 tab 04/11/21 06/08/21 Rx furosemide 20 mg PO DAILY 06/01/21 06/08/21 History tamsulosin [Flomax] 0.4 mg PO DAILY #10 cap 06/01/21 06/08/21 Rx triamcinolone acetonide 1 applic TOPICAL DAILY 06/01/21 06/08/21 History ondansetron 4 mg PO Q6H PRN #10 tab 06/04/21 06/08/21 Rx oxycodone 5 mg capsule 5 mg PO Q6H PRN #12 cap MDD 4 06/08/21 06/08/21 Rx Exam Narrative Exam Narrative: General: Pleasant middle-aged male, A&Ox3, seen in PACU, appeared uncomfortable Neurological: A&Ox3, no focal deficits Psychiatric: Appropriate speech pattern/content Skin: Visible skin intact HEENT: Atraumatic, normocephalic, EOMI, dry MM, no submandibular or cervical lymphadenopathy, no goiter or JVD Cardiovascular: irregularly irregular rhythm, no m/r/g Lungs: CTAB Gastrointestinal: soft, nontender, nondistended Genitourinary: deferred - but importantly, no thornton catheter Extremities: no edema BLE's Results Imaging Additional studies: CXR: Limited exam. No acute pulmonary findings. A left basilar infiltrate is not excluded on this single view. Labs Result diagrams: 06/08/21 13:25 Labs: Laboratory Results - last 24 hr 06/08/21 06/08/21 06/08/21 12:55 12:55 13:25 Sodium Cancelled 135 L Potassium Cancelled 3.7 Chloride Cancelled 99 Carbon Dioxide Cancelled 23.2 Anion Gap Cancelled 12.8 H BUN Cancelled 35 H Creatinine Cancelled 2.0 H Estimated GFR/1.73 m2 Cancelled 33.10 Glucose Cancelled 319 H Calcium Cancelled 8.2 L Troponin I Cancelled < 0.05 Last Vital Signs Temp 36.5 C 06/08/21 13:45 Pulse 115 H 06/08/21 13:45 Resp 24 06/08/21 13:45 BP 106/54 L 06/08/21 13:45 Pulse Ox 95 06/08/21 13:45
[2021-06-08 14:59] LABS: FREE T4 0.79 ng/dL (0.76-1.46); TSH 3.34 uIU/mL (0.36-3.74)
[2021-06-08] MEDS: Insulin Aspart 100 UNITS/ML UNIT SC (15:10)
--- NOTE | 2021-06-08 16:51 | W.PM.PROGNOT ---
Date of Service Date of service: 06/08/21 Time of Service: 16:52 Assessment and Plan Assessment and plan (1) Ureterolithiasis: Status: Acute Assessment and plan: I appreciate the efforts of my anesthesia and hospitalist colleagues. With the stent in place, he certainly could develop clot retention, so I have placed an order for prn bladder scans. I have ordered some Pyridium and oral pain meds if needed. Subjective Subjective Interval history since last seen: While in DSU after surgery, he developed rapid Afib with rates @ 160 and shortness of breath. His rate is better controlled with medical therapy. He will be watched overnight on telemetry. He tells me the preop flank pain has resolved. He has had some lower abdominal discomfort which is suggestive of stent discomfort. Exam Narrative Exam Narrative: He looks very comfortable at this point. Objective Last Vital Signs Temp 36.5 C 06/08/21 16:45 Pulse 117 H 06/08/21 16:45 Resp 24 06/08/21 16:45 BP 99/57 L 06/08/21 16:45 Pulse Ox 95 06/08/21 16:45 Laboratory Results - last 24 hr 06/08/21 06/08/21 06/08/21 12:55 12:55 13:25 Sodium Cancelled 135 L Potassium Cancelled 3.7 Chloride Cancelled 99 Carbon Dioxide Cancelled 23.2 Anion Gap Cancelled 12.8 H BUN Cancelled 35 H Creatinine Cancelled 2.0 H Estimated GFR/1.73 m2 Cancelled 33.10 Glucose Cancelled 319 H Calcium Cancelled 8.2 L Troponin I Cancelled < 0.05 TSH 3.34 Free T4 0.79
[2021-06-08 18:51] LABS: Source Nasal/Nares
[2021-06-08 19:11] LABS: Troponin I < 0.05 ng/mL (<0.06)
--- NOTE | 2021-06-08 19:42 | RESPIRATORY ---
Pt states that he uses a home cpap unit set to cpap of 15, no O2 bleed in. Dme is Vira. Kasia set up in room, pt tolerated the mask well and RN will help him put it on tonight. The only problem we may encounter is the pt has a thick ding and the machine is showing a large leak. Rn is also aware of this.
[2021-06-08 20:49] LABS: COVID-19 PCR Negative (Negative)
[2021-06-08] MEDS: Nystatin CREAM 30 GM TUBE TP (22:10)
[2021-06-08] MEDS: Insulin REGULAR-Human 100 UNITS/ML UNIT 15 UNITS SC (23:24)
[2021-06-09] VITALS (62 sets, daily range): BP systolic 99–115; BP diastolic 51–73; PULSE 70–118; RESP 12–29; TEMP 36.5–37.1; O2SAT 85–98
[2021-06-09 06:54] LABS: Abs Immature Grans 0.19 10^3/uL (0.0-0.06); Absolute Monocyte Count 0.79 10^3/uL (0.1-0.8); Absolute Neutrophil Count 17.37 10^3/uL (1.2-6.7); Basophils % 0.3; Eosinophils % 0.8; HCT 31.3 % (40.0-50.0); HGB 10.3 g/dL (13.5-17.5); Lymphocytes % 3.9; MCH 28.9 pg (27.0-33.0); MCHC 32.9 % (32.0-36.0); MCV 87.7 fL (80-95); MPV 9.5 fL (8.0-11.0); Monocytes % 4.1; Neutrophils % 89.9; Nucleated RBC 0 %; Platelet Count 298 10^3/uL (130-400); RBC 3.57 10^6/uL (4.36-5.78); RDW 13.5 % (11.8-14.1); RDW-SD 43.7 fL; WBC 19.32 10^3/uL (4.4-10.8)
[2021-06-09 07:01] LABS: Absolute Basophil Count 0.06 10^3/uL (0.0-0.2); Absolute Eosinophil Count 0.15 10^3/uL (0.0-0.7); Absolute Lymphocyte Count 0.75 10^3/uL (1.2-3.4)
[2021-06-09 07:17] LABS: Anion Gap 11.2 mmol/L (3-11); BUN 47 mg/dL (7-18); CO2 23.8 mmol/L (21.0-32.0); CREATININE 2.3 mg/dL (0.70-1.30); Calcium 8.1 mg/dL (8.5-10.1); Chloride 99 mmol/L (98-107); Estimated GFR 28.17 (mL/min/1.73m2); Glucose 231 mg/dL (74-106); Potassium 3.2 mmol/L (3.5-5.1); Sodium 134 mmol/L (136-145)
[2021-06-09 07:19] LABS: Magnesium 2.1 mg/dL (1.8-2.4)
--- NOTE | 2021-06-09 07:21 | W.PM.PROGNOT ---
Date of Service Date of service: 06/09/21 Time of Service: 07:22 Assessment and Plan Assessment and plan (1) Ureterolithiasis: Status: Acute Assessment and plan: As long and it is okay with my hospitalist colleagues, I have no objection to him being discharged today. I would normally restart his Eliquis today as well (as long as he is not seeing overly bloody urine or having clots in the urine). My office is already in the process of scheduling his next procedure for cystoscopy and stent removal. I will plan on running the ureteroscope back up to the kidney to ensure that all stone fragments have been cleared. Subjective Subjective Interval history since last seen: His heart rate and blood pressure had been under much better control overnight. He has not been short of breath. He does have some abdominal discomfort but no real pain when voiding. He is not seeing any clots in his urine. Exam Narrative Exam Narrative: He does not appear septic or toxic His abdomen is soft. He has no guarding or rebound tenderness. He does have some left lower abdominal pain on palpation He is awake and alert Objective Last Vital Signs Temp 37.1 C 06/08/21 18:21 Pulse 99 H 06/09/21 00:00 Resp 23 06/09/21 00:00 BP 113/73 06/09/21 00:00 Pulse Ox 96 06/09/21 00:00 Laboratory Results - last 24 hr 06/08/21 06/08/21 06/08/21 12:55 12:55 13:25 WBC RBC Hgb Hct MCV MCH MCHC RDW Plt Count MPV Immature Gran % Neutrophils % Lymphocytes % Monocytes % Eosinophils % Basophils % Nucleated RBC % Absolute Neutrophils Absolute Lymphocytes Absolute Monocytes Absolute Eosinophils Absolute Basophils Sodium Cancelled 135 L Potassium Cancelled 3.7 Chloride Cancelled 99 Carbon Dioxide Cancelled 23.2 Anion Gap Cancelled 12.8 H BUN Cancelled 35 H Creatinine Cancelled 2.0 H Estimated GFR/1.73 m2 Cancelled 33.10 Glucose Cancelled 319 H Calcium Cancelled 8.2 L Magnesium Troponin I Cancelled < 0.05 TSH 3.34 Free T4 0.79 COVID-19 Source SARS-CoV-2 (PCR) 06/08/21 06/08/21 06/09/21 18:30 18:45 06:33 WBC RBC Hgb Hct MCV MCH MCHC RDW Plt Count MPV Immature Gran % Neutrophils % Lymphocytes % Monocytes % Eosinophils % Basophils % Nucleated RBC % Absolute Neutrophils Absolute Lymphocytes Absolute Monocytes Absolute Eosinophils Absolute Basophils Sodium 134 L Potassium 3.2 L Chloride 99 Carbon Dioxide 23.8 Anion Gap 11.2 H BUN 47 H D Creatinine 2.3 H Estimated GFR/1.73 m2 28.17 Glucose 231 H D Calcium 8.1 L Magnesium Troponin I < 0.05 TSH Free T4 COVID-19 Source Nasal/Nares SARS-CoV-2 (PCR) Negative 06/09/21 06/09/21 06:33 06:33 WBC 19.32 H RBC 3.57 L Hgb 10.3 L Hct 31.3 L MCV 87.7 MCH 28.9 MCHC 32.9 RDW 13.5 Plt Count 298 MPV 9.5 Immature Gran % 1.0 Neutrophils % 89.9 Lymphocytes % 3.9 Monocytes % 4.1 Eosinophils % 0.8 Basophils % 0.3 Nucleated RBC % 0 Absolute Neutrophils 17.37 H Absolute Lymphocytes 0.75 L Absolute Monocytes 0.79 Absolute Eosinophils 0.15 Absolute Basophils 0.06 Sodium Potassium Chloride Carbon Dioxide Anion Gap BUN Creatinine Estimated GFR/1.73 m2 Glucose Calcium Magnesium 2.1 Troponin I TSH Free T4 COVID-19 Source SARS-CoV-2 (PCR)
[2021-06-09 08:27] LABS: Procalcitonin 21.3 ng/mL
--- NOTE | 2021-06-09 08:33 | PGE_ITS ---
Date of Service Date of service: 06/09/21 Time of Service: 15:53 Assessment and Plan Assessment and plan (1) UTI (urinary tract infection): Status: Acute Assessment and plan: Associated with instrumentation. Obtain blood cultures. Elevated procalcitonin - trend. Start IV ceftriaxone, continue IVF. Will discuss with urology if repeat imaging and/or procedure are indicated. (2) Atrial fibrillation with rapid ventricular response: Status: Resolved Assessment and plan: Rates are controlled. D/c tele. Continue home therapy. Resume eliquis. (3) Acute kidney injury superimposed on chronic kidney disease: Status: Acute Assessment and plan: Continue IVF. hold metformin. (4) Diabetes mellitus: Status: Chronic Assessment and plan: Cover with SSI in the hospital. Would not resume meformin on discharge unless kidney function permits. Qualifiers: Diabetes mellitus type: type 2 Diabetes mellitus watcher [employer] insulin use: with mcc use Diabetes mellitus complication status: without complication Qualified Code(s): E11.9 - Type 2 diabetes mellitus without complications; Z79.4 - long-term (current) use of insulin (5) Essential hypertension: Status: Chronic Assessment and plan: Continue home management (6) Obstructive sleep apnea syndrome: Status: Chronic Assessment and plan: Provide home CPAP (7) DVT prophylaxis: Status: Acute Assessment and plan: Resume eliquis (8) Discharge planning issues: Status: Acute Assessment and plan: Full code Admit to inpatient status Subjective Subjective Interval history since last seen: Mr Rueda states he is feeling good. Denies dizziness, chest pain, shortness of breath, nausea, pain. HR - 80s - 90s. Wants to go home, but agrees to stay given the bloodwork results. Exam Narrative Exam Narrative: General: Pleasant middle-aged male, A&Ox3 HEENT: EOMI, MMM Cardiovascular: irregularly irregular rhythm, no m/r/g Lungs: CTAB Gastrointestinal: soft, nontender, nondistended Extremities: no edema BLE's Objective Last Vital Signs Temp 37.1 C 06/08/21 18:21 Pulse 99 H 06/09/21 00:00 Resp 23 06/09/21 00:00 BP 113/73 06/09/21 00:00 Pulse Ox 96 06/09/21 00:00 Laboratory Results - last 24 hr 06/08/21 06/08/21 06/08/21 12:55 12:55 13:25 WBC RBC Hgb Hct MCV MCH MCHC RDW Plt Count MPV Immature Gran % Neutrophils % Lymphocytes % Monocytes % Eosinophils % Basophils % Nucleated RBC % Absolute Neutrophils Absolute Lymphocytes Absolute Monocytes Absolute Eosinophils Absolute Basophils Sodium Cancelled 135 L Potassium Cancelled 3.7 Chloride Cancelled 99 Carbon Dioxide Cancelled 23.2 Anion Gap Cancelled 12.8 H BUN Cancelled 35 H Creatinine Cancelled 2.0 H Estimated GFR/1.73 m2 Cancelled 33.10 Glucose Cancelled 319 H Calcium Cancelled 8.2 L Magnesium Troponin I Cancelled < 0.05 Procalcitonin TSH 3.34 Free T4 0.79 COVID-19 Source SARS-CoV-2 (PCR) 06/08/21 06/08/21 06/09/21 18:30 18:45 06:33 WBC RBC Hgb Hct MCV MCH MCHC RDW Plt Count MPV Immature Gran % Neutrophils % Lymphocytes % Monocytes % Eosinophils % Basophils % Nucleated RBC % Absolute Neutrophils Absolute Lymphocytes Absolute Monocytes Absolute Eosinophils Absolute Basophils Sodium 134 L Potassium 3.2 L Chloride 99 Carbon Dioxide 23.8 Anion Gap 11.2 H BUN 47 H D Creatinine 2.3 H Estimated GFR/1.73 m2 28.17 Glucose 231 H D Calcium 8.1 L Magnesium Troponin I < 0.05 Procalcitonin TSH Free T4 COVID-19 Source Nasal/Nares SARS-CoV-2 (PCR) Negative 06/09/21 06/09/21 06/09/21 06:33 06:33 06:33 WBC 19.32 H RBC 3.57 L Hgb 10.3 L Hct 31.3 L MCV 87.7 MCH 28.9 MCHC 32.9 RDW 13.5 Plt Count 298 MPV 9.5 Immature Gran % 1.0 Neutrophils % 89.9 Lymphocytes % 3.9 Monocytes % 4.1 Eosinophils % 0.8 Basophils % 0.3 Nucleated RBC % 0 Absolute Neutrophils 17.37 H Absolute Lymphocytes 0.75 L Absolute Monocytes 0.79 Absolute Eosinophils 0.15 Absolute Basophils 0.06 Sodium Potassium Chloride Carbon Dioxide Anion Gap BUN Creatinine Estimated GFR/1.73 m2 Glucose Calcium Magnesium 2.1 Troponin I Procalcitonin 21.3 TSH Free T4 COVID-19 Source SARS-CoV-2 (PCR)
[2021-06-09] MEDS: Omega-3 Fatty Acids 1000 MG CAP 2000 MG PO (08:38)
[2021-06-09] MEDS: Calcium 600mg/Vit D 200U TAB 2 TAB PO (08:39)
[2021-06-09] MEDS: dilTIAZem CD 120 MG CAPCR 240 MG PO (08:39)
[2021-06-09] MEDS: Terazosin 2 MG CAP PO (08:39)
[2021-06-09] MEDS: Metoprolol CR 100 MG TABCR PO (08:40)
[2021-06-09] MEDS: Ascorbic Acid 500 MG TAB 1000 MG PO (08:40)
[2021-06-09] MEDS: Potassium Chloride 20 MEQ TABCR 40 MEQ PO (08:40)
[2021-06-09] MEDS: Lisinopril 5 MG TAB PO (08:40)
[2021-06-09] MEDS: Tamsulosin 0.4 MG CAPCR PO (08:40)
[2021-06-09] MEDS: Cyanocobalamin 500 MCG TAB PO (08:40)
[2021-06-09] MEDS: buPROPion-XL 150 MG TABCR PO (08:40)
[2021-06-09] MEDS: Multivitamin TAB 2 TAB PO (08:40)
[2021-06-09] MEDS: Insulin Aspart 300 UNITS/3 ML PEN SC ×3 (08:41→17:24)
[2021-06-09] MEDS: Normal Saline Flush 10 ML SYR IVP (08:47)
[2021-06-09] MEDS: Normal Saline 1,000 ML 500 ML IV (09:00)
--- NOTE | 2021-06-09 09:42 | INITIAL_ITS ---
- If Service Date Differs Date of service: 06/09/21 Time of Service: 09:42 Care Management Initial Assess REASON FOR HOSPITALIZATION:: Afib with RVR PAST MEDICAL HISTORY/PAST SURGICAL HISTORY:: Medical History . Anxiety (08/10/08). Asbestosis (08/10/08). Asthma (07/08/12). pt. denies this. Atopic conjunctivitis (10/22/13). Atrial fibrillation. Benign prostatic hyperplasia (02/25/13). Bladder cancer. Carpal tunnel syndrome. Chronic anticoagulation. Chronic venous stasis. Depressive disorder (02/25/13). Diabetes mellitus (02/25/13). Essential hypertension (06/24/13). Frequency of micturition (01/03/16). Glaucoma (10/22/13). B/L. Gross hematuria. High grade dysplasia in colonic adenoma. Hyperlipidemia (02/25/13). Hypermetropia (10/22/13). Hypogonadism. Idiopathic peripheral stevenson ropathy. Low back pain (08/10/08). Noncompliance. Nuclear senile cataract (10/22/13). Obesity (08/10/08). Aviva-en-y 02/2014. Obstructive sleep apnea syndrome (08/10/08). cpap. Olecranon bursitis. Osteoarthritis (08/10/08). BILATERAL KNEE replacements. Peptic reflux disease (08/10/08). Peripheral neuralgia. Phimosis. Presbyopia (10/22/13). Pterygium (08/10/08). LEFT EYE. Regular astigmatism (10/22/13). Sensorineural hearing loss, bilateral (09/05/17). Tubular adenoma. Tubular and tubulovillous adenoma 2011. --suggested repeat 2017. Umbilical hernia (08/18/12). Urgency of urination (01/03/16). Urinary tract infection. Urothelial carcinoma. Varicose veins of lower extremity (08/10/08). Venous insufficiency (chronic) (peripheral). Surgical History . History of transurethral destruction of bladder lesion. Ronnell Fundoplication. Repair of umbilical hernia. Laparoscopic. Aviva-en-y surgery. for weight loss. S/P cholecystectomy (~01/04/21). acute hemorrhagic cholecystitis and xanthogranulomatous inflammation. S/P colonoscopy. -2011- tubular and tubulovillous polyps. [place]- 2019- sessile serrated with low grade dysplacia, tubullovillous with high grade dysplacia and tubular adenomas. S/P partial colectomy (~05/09/20). Status post abdominoplasty (05/23/16). Status post tonsillectomy. Status post total knee replacement. B/L. Vasectomy PREVIOUS FUNCTIONAL STATUS/SOCIAL/FAMILY SUPPORTS:: Eugene lives in an apartment in [place] with his son Momo. Eugene has 5 other children but not all are local; several live in [facility].Eugene is originally from [facility] as well and moved to [place] in the 1969's. Eugene is retired but worked for 30 years for the [employer] and then 10 years for [employer].He is independent at baseline and receives no community services. CURRENT FUNCTIONAL STATUS:: Eugene was sitting up in bed when CM met with him. He was pleasant and cooperative with answering questions. Momo talked about his family and a bit about his work history. He indicated to CM that he hopes to be discharged later today if all of his tests are ok. ADVANCE DIRECTIVES:: On file. Son Momo [facility] Has patient been provided with info about the portal/API?: Yes Did the patient sign up for the portal?: No CODE STATUS:: Full Code INSURANCE COVERAGE / FINANCIAL ISSUES:: BS Commercial medicare replacement CURRENT HOME/COMMUNITY SERVICES/EQUIPMENT:: uses a cane on occasion PRIMARY CARE PHYSICIAN:: [facility] POTENTIAL DISCHARGE NEEDS:: Follow up with PCP and plan of care PATIENT/FAMILY EDUCATION NEEDS:: Review of discharge instructions, follow up plan, medications, activity, Ask Me Three TRANSPORTATION:: via private vehicle with family PLAN:: Eugene will likely be discharged home with no new services. He will follow up with his PCP and plan of care and transport with family. CM will continue to support Eugene and assess for discharge concerns.
[2021-06-09] MEDS: Finasteride 5 MG TAB PO (09:45)
[2021-06-09 11:00] LABS: Bilirubin Negative (Negative); Blood Large (Negative); Clarity Cloudy (Clear); Glucose Negative (Negative); Ketones Trace mg/dL (Negative); Leukocyte Esterase Small (Negative); Nitrite Positive (Negative); Specific Gravity 1.015 (1.005-1.025)
[2021-06-09 11:10] LABS: Bacteria Rare HPF (Negative); Crystals Moderate Amorphous HPF (Negative); Epithelial Cells Few HPF (Negative); Mucus Negative (Negative); RBC >50 HPF (0-2)
[2021-06-09 11:11] LABS: C & S Indicated? Yes; Casts 3-5 Coarse Granular LPF (Negative)
[2021-06-09] MEDS: Normal Saline 1,000 ML 150 ML IV ×2 (11:41→20:24)
[2021-06-09 14:07] LABS: Anion Gap 8.3 mmol/L (3-11); BUN 49 mg/dL (7-18); CO2 24.7 mmol/L (21.0-32.0); CREATININE 2.3 mg/dL (0.70-1.30); Calcium 7.6 mg/dL (8.5-10.1); Chloride 99 mmol/L (98-107); Estimated GFR 28.17 (mL/min/1.73m2); Glucose 311 mg/dL (74-106); Potassium 3.7 mmol/L (3.5-5.1); Sodium 132 mmol/L (136-145)
[2021-06-09] MEDS: cefTRIAXone 1 GM/50 ML BAG IVPB ×2 (14:22→16:16)
[2021-06-09] MEDS: Apixaban 5 MG TAB PO (20:35)
[2021-06-09] MEDS: Lovastatin 20 MG TAB PO (20:35)
[2021-06-09] MEDS: Acetaminophen 325 MG TAB PO (20:40)
[2021-06-09] MEDS: Nystatin CREAM 15 GM TUBE TP (22:04)
--- NOTE | 2021-06-09 23:38 | NUR.NOTE ---
Patient was [facility] He is alert and oriented x3. Patient reported he has has passed stool in over a week, but he adamantly refused bowel medications, stating he does not want to get up and go to the bathroom to pass stool, further state he wants to wait until he gets home to have a bowel movement. Further assessment documented.
[2021-06-10 00:21] VITALS: BP 109/73; PULSE 90; RESP 20; TEMP 36.8; O2SAT 96
[2021-06-10] MEDS: Normal Saline 1,000 ML 150 ML IV ×2 (02:33→09:03)
[2021-06-10 04:12] VITALS: BP 113/79; PULSE 92; RESP 18; TEMP 36.5; O2SAT 96
[2021-06-10 06:59] LABS: Abs Immature Grans 0.13 10^3/uL (0.0-0.06); Absolute Basophil Count 0.03 10^3/uL (0.0-0.2); Absolute Lymphocyte Count 0.59 10^3/uL (1.2-3.4); Absolute Monocyte Count 0.79 10^3/uL (0.1-0.8); Basophils % 0.2; Eosinophils % 1.1; HCT 29.5 % (40.0-50.0); HGB 9.5 g/dL (13.5-17.5); Immature Grans % 0.9; Lymphocytes % 4.2; MCH 28.6 pg (27.0-33.0); MCHC 32.2 % (32.0-36.0); MCV 88.9 fL (80-95); MPV 9.6 fL (8.0-11.0); Monocytes % 5.7; Neutrophils % 87.9; Nucleated RBC 0 %; Platelet Count 277 10^3/uL (130-400); RBC 3.32 10^6/uL (4.36-5.78); RDW 13.6 % (11.8-14.1); RDW-SD 44.6 fL; WBC 13.93 10^3/uL (4.4-10.8)
[2021-06-10 07:01] LABS: Absolute Eosinophil Count 0.15 10^3/uL (0.0-0.7); Absolute Neutrophil Count 12.24 10^3/uL (1.2-6.7)
[2021-06-10 07:16] LABS: Anion Gap 9.8 mmol/L (3-11); BUN 41 mg/dL (7-18); CO2 23.2 mmol/L (21.0-32.0); CREATININE 1.7 mg/dL (0.70-1.30); Calcium 7.4 mg/dL (8.5-10.1); Chloride 102 mmol/L (98-107); Estimated GFR 39.93 (mL/min/1.73m2); Glucose 367 mg/dL (74-106); Magnesium 1.9 mg/dL (1.8-2.4); Sodium 135 mmol/L (136-145)
[2021-06-10 08:09] VITALS: BP 146/93; PULSE 104; RESP 19; TEMP 36.3; O2SAT 97
[2021-06-10] MEDS: Nystatin CREAM 15 GM TUBE TP ×2 (08:11→20:59)
[2021-06-10] MEDS: Triamcinolone 0.1% OINT 15 GM TUBE TP (08:11)
[2021-06-10] MEDS: Insulin Aspart 300 UNITS/3 ML PEN SC ×5 (08:11→17:15)
[2021-06-10] MEDS: Apixaban 5 MG TAB PO ×2 (08:12→21:00)
[2021-06-10] MEDS: Finasteride 5 MG TAB PO (08:12)
[2021-06-10] MEDS: Cyanocobalamin 500 MCG TAB PO (08:12)
[2021-06-10] MEDS: Lisinopril 5 MG TAB PO (08:12)
[2021-06-10] MEDS: dilTIAZem CD 120 MG CAPCR 240 MG PO (08:12)
[2021-06-10] MEDS: Multivitamin TAB 2 TAB PO (08:12)
[2021-06-10] MEDS: buPROPion-XL 150 MG TABCR PO (08:12)
[2021-06-10] MEDS: Omega-3 Fatty Acids 1000 MG CAP 2000 MG PO (08:12)
[2021-06-10] MEDS: Calcium 600mg/Vit D 200U TAB 2 TAB PO (08:12)
[2021-06-10] MEDS: Ascorbic Acid 500 MG TAB 1000 MG PO (08:13)
[2021-06-10] MEDS: Metoprolol CR 100 MG TABCR PO (08:13)
[2021-06-10] MEDS: Tamsulosin 0.4 MG CAPCR PO (08:13)
[2021-06-10] MEDS: Terazosin 2 MG CAP PO (10:36)
[2021-06-10] MEDS: cefTRIAXone 2 GM/50 ML BAG IVPB (13:46)
--- NOTE | 2021-06-10 15:06 | W.PM.PROGNOT ---
Date of Service Date of service: 06/10/21 Time of Service: 15:06 Assessment and Plan Assessment and plan (1) UTI (urinary tract infection): Status: Acute Assessment and plan: associated w/ instrumentation (ureterocystoscopy and stone manipulation and left ureteral stent placement, and Holmium laser lithotripsy) performed 06/10. Dr. Issa indicated to me that she did not get to discuss w/ Dr. Osuna whether or not he wanted repeat imaging. given that the patient had laser lithotripsy and ureteral stent placement, I doubt that he would have residual obstruction. Patient is on day #3 of high dose Rocephin 2 gm daily. I will check his blood culture results tomorrow and if negative, I will discharge him on oral antibiotics w/ follow up w/ Dr. Osuna next week. Qualifiers: Urinary tract infection type: site unspecified Hematuria presence: with hematuria Qualified Code(s): N39.0 - Urinary tract infection, site not specified; R31.9 - Hematuria, unspecified (2) Atrial fibrillation with rapid ventricular response: Status: Resolved Assessment and plan: Rates are controlled. D/c tele. Continue home therapy. (cardizem CD 240 mg and Toprol XL 100 mg daily and apixaban) Resume eliquis. Can dc q4h vitals and prn iv metoprolol (3) Acute kidney injury superimposed on chronic kidney disease: Status: Acute Assessment and plan: dc iv fluids. creatinine now down to `1.7. baseline is 1.3 to 1.4. encourage po intake. avoid NSAIDS and continue to hold metformin (4) Diabetes mellitus: Status: Chronic Assessment and plan: currently on low dose (insulin sensitive sliding scale novolog); blood glucose is running in the 300's since he has been off his metformin. I am going to continue to hold his metformin but put him on NPH and increase his sliding scale to resistant and add CHO coverage of novolog. 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 BP running higher today. I think that he needs his iv fluids discontinued. He is now back on his Toprol XL and Cardizem CD but not on his lisinopril. Now that his creatinine is down below 2.0, I think that he can resume his lisinopril starting in the a.m. I will repeat his BMP just to be sure. (6) Obstructive sleep apnea syndrome: Status: Chronic Assessment and plan: Provide home CPAP (7) DVT prophylaxis: Status: Acute Assessment and plan: Resume eliquis (8) Discharge planning issues: Status: Acute Assessment and plan: Full code Anticipate discharge in the next 24 to 48 hr pending blood culture results. Subjective Subjective Interval history since last seen: Patient continues to improve. He is eating well and drinking well. He is afebrile. His blood cultures are still pending and his urine culture is growing mixed gram positive red (<10,000 CFU) and gram negative rods (<10,000 CFU). He remains on Rocephin 2 gm daily. I think that his iv fluids can be discontinued. However, I want him to remain on iv Rocephin until his blood cultures are negative and I get an identification of the organism so we can switch to oral antibiotics. I think possible discharge tomorrow. He has no pain and denies any clots when urinating. Exam Narrative Exam Narrative: Pleasant, obese white male, sitting up in his chair; alert and oriented Lungs clear; chest barrel chested Abdomen: obese, soft, nontender Heart: irregularly irregular but controlled rate Objective Last Vital Signs Temp 36.3 C L 06/10/21 08:09 Pulse 104 H 06/10/21 08:09 Resp 19 06/10/21 08:09 BP 146/93 H 06/10/21 08:09 Pulse Ox 97 06/10/21 08:09 Laboratory Results - last 24 hr 06/10/21 06/10/21 06/10/21 06:26 06:26 06:26 WBC 13.93 H RBC 3.32 L Hgb 9.5 L Hct 29.5 L MCV 88.9 MCH 28.6 MCHC 32.2 RDW 13.6 Plt Count 277 MPV 9.6 Immature Gran % 0.9 Neutrophils % 87.9 Lymphocytes % 4.2 Monocytes % 5.7 Eosinophils % 1.1 Basophils % 0.2 Nucleated RBC % 0 Absolute Neutrophils 12.24 H Absolute Lymphocytes 0.59 L Absolute Monocytes 0.79 Absolute Eosinophils 0.15 Absolute Basophils 0.03 Sodium 135 L Potassium 4.0 Chloride 102 Carbon Dioxide 23.2 Anion Gap 9.8 BUN 41 H Creatinine 1.7 H Estimated GFR/1.73 m2 39.93 Glucose 367 H Calcium 7.4 L Magnesium 1.9
[2021-06-10] MEDS: Insulin NPH-Human 300 UNITS/3 ML PEN 10 UNIT SC (17:15)
[2021-06-10 17:25] VITALS: BP 141/84; PULSE 81; RESP 22; TEMP 35.9; O2SAT 100
[2021-06-10] MEDS: Lovastatin 20 MG TAB PO (21:00)
[2021-06-10 22:46] VITALS: BP 110/72; PULSE 80; RESP 18; TEMP 36.3; O2SAT 97
[2021-06-11 07:44] LABS: Abs Immature Grans 0.12 10^3/uL (0.0-0.06); Absolute Eosinophil Count 0.13 10^3/uL (0.0-0.7); Absolute Lymphocyte Count 0.92 10^3/uL (1.2-3.4); Basophils % 0.2; HCT 29.5 % (40.0-50.0); HGB 9.4 g/dL (13.5-17.5); Lymphocytes % 7.3; MCH 28.8 pg (27.0-33.0); MCHC 31.9 % (32.0-36.0); MCV 90.5 fL (80-95); MPV 9.5 fL (8.0-11.0); Monocytes % 7.2; Neutrophils % 83.3; Nucleated RBC 0 %; Platelet Count 296 10^3/uL (130-400); RBC 3.26 10^6/uL (4.36-5.78); RDW 13.5 % (11.8-14.1); RDW-SD 45.1 fL; WBC 12.58 10^3/uL (4.4-10.8)
[2021-06-11 07:47] LABS: Absolute Basophil Count 0.03 10^3/uL (0.0-0.2); Absolute Monocyte Count 0.91 10^3/uL (0.1-0.8); Absolute Neutrophil Count 10.48 10^3/uL (1.2-6.7)
[2021-06-11 08:09] LABS: Anion Gap 10.3 mmol/L (3-11); BUN 31 mg/dL (7-18); C-Reactive Protein 9.44 mg/dL (0.0-0.3); CO2 23.7 mmol/L (21.0-32.0); CREATININE 1.3 mg/dL (0.70-1.30); Calcium 7.7 mg/dL (8.5-10.1); Chloride 105 mmol/L (98-107); Estimated GFR 54.42 (mL/min/1.73m2); Glucose 106 mg/dL (74-106); Potassium 3.7 mmol/L (3.5-5.1); Sodium 139 mmol/L (136-145)
[2021-06-11] MEDS: Triamcinolone 0.1% OINT 15 GM TUBE TP (08:17)
[2021-06-11] MEDS: Nystatin CREAM 15 GM TUBE TP (08:17)
[2021-06-11] MEDS: Omega-3 Fatty Acids 1000 MG CAP 2000 MG PO (08:18)
[2021-06-11] MEDS: Multivitamin TAB 2 TAB PO (08:18)
[2021-06-11] MEDS: buPROPion-XL 150 MG TABCR PO (08:18)
[2021-06-11] MEDS: Apixaban 5 MG TAB PO (08:18)
[2021-06-11] MEDS: Finasteride 5 MG TAB PO (08:18)
[2021-06-11] MEDS: Calcium 600mg/Vit D 200U TAB 2 TAB PO (08:18)
[2021-06-11] MEDS: dilTIAZem CD 120 MG CAPCR 240 MG PO (08:18)
[2021-06-11] MEDS: Cyanocobalamin 500 MCG TAB PO (08:18)
[2021-06-11] MEDS: Ascorbic Acid 500 MG TAB 1000 MG PO (08:18)
[2021-06-11] MEDS: Tamsulosin 0.4 MG CAPCR PO (08:18)
[2021-06-11] MEDS: Lisinopril 5 MG TAB PO (08:18)
[2021-06-11] MEDS: Metoprolol CR 100 MG TABCR PO (08:19)
[2021-06-11] MEDS: Terazosin 2 MG CAP PO (08:19)
[2021-06-11] MEDS: Insulin NPH-Human 300 UNITS/3 ML PEN 10 UNIT SC (08:19)
[2021-06-11] MEDS: Insulin Aspart 300 UNITS/3 ML PEN SC ×3 (08:29→12:07)
[2021-06-11 08:49] VITALS: BP 122/78; PULSE 94; RESP 18; TEMP 36.3; O2SAT 98
[2021-06-11] MEDS: Normal Saline Flush 10 ML SYR IVP (14:06)
[2021-06-11] MEDS: cefTRIAXone 2 GM/50 ML BAG IVPB (14:06)
--- NOTE | 2021-06-11 14:26 | PGE_ITS ---
Date of Service Date of service: 06/11/21 Time of Service: 14:26 Assessment and Plan Assessment and plan (1) UTI (urinary tract infection): Status: Acute Assessment and plan: associated w/ instrumentation (ureterocystoscopy and stone manipulation and left ureteral stent placement, and Holmium laser lithotripsy) performed 06/10. Negative blood cultures but positive urine culture for >100,000 CFU of Group B Strep and <10,000 CFU of gram negative rods. I will discharge him on one week of Augmentin and have him follow w/ Dr. Osuna next week. Qualifiers: Urinary tract infection type: site unspecified Hematuria presence: with hematuria Qualified Code(s): N39.0 - Urinary tract infection, site not specified; R31.9 - Hematuria, unspecified (2) Atrial fibrillation with rapid ventricular response: Status: Resolved Assessment and plan: Rates are controlled. cont. home meds of cardizem and toprol xl and apixaban (3) Acute kidney injury superimposed on chronic kidney disease: Status: Resolved Assessment and plan: creatinine down to 1.3 which is his baseline. He can safely resume his metformin upon discharge. will get repeat BMP next week. 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 will repeat BMP next week (6) Obstructive sleep apnea syndrome: Status: Chronic Assessment and plan: Provide home CPAP (7) DVT prophylaxis: Status: Resolved Assessment and plan: Resume eliquis (8) Discharge planning issues: Status: Acute Assessment and plan: Full code discharge today after his Ceftriaxone is completed. Subjective Subjective Interval history since last seen: Patient denies any complaints. He is voiding well w/out dysuria. He would like to return home today. His blood cultures came back no growth. Urine culture grew Grp B Strep >100,000 CFU along w/ <10,000 CFU of GNR. He is doing well on ceftriaxone however an ampicillin based antibiotic would be preferable for Group B Strep. I will discharge him one week of Augmentin and have him follow up w/ Dr. Osuna. Exam Narrative Exam Narrative: Obese white male, alert and oriented x 3, watching TV having finished his lunch. Currently receiving his Rocephin Lungs: clear Heart: irregularly irregular Abdomen: obese, soft, nontender Extremities w/out pitting edema; he has a small superficial skin ulceration over right hermosillo draining small amount of purulent discharge; I instructed him to wash this w/ soap and water and apply bacitracin to this. Objective Last Vital Signs Temp 36.3 C L 06/11/21 08:49 Pulse 94 H 06/11/21 08:49 Resp 18 06/11/21 08:49 BP 122/78 06/11/21 08:49 Pulse Ox 98 06/11/21 08:49 Laboratory Results - last 24 hr 06/11/21 06/11/21 06:12 06:12 WBC 12.58 H RBC 3.26 L Hgb 9.4 L Hct 29.5 L MCV 90.5 MCH 28.8 MCHC 31.9 L RDW 13.5 Plt Count 296 MPV 9.5 Immature Gran % 1.0 Neutrophils % 83.3 Lymphocytes % 7.3 Monocytes % 7.2 Eosinophils % 1.0 Basophils % 0.2 Nucleated RBC % 0 Absolute Neutrophils 10.48 H Absolute Lymphocytes 0.92 L Absolute Monocytes 0.91 H Absolute Eosinophils 0.13 Absolute Basophils 0.03 Sodium 139 Potassium 3.7 Chloride 105 Carbon Dioxide 23.7 Anion Gap 10.3 BUN 31 H D Creatinine 1.3 Estimated GFR/1.73 m2 54.42 Glucose 106 D Calcium 7.7 L C-Reactive Protein 9.44 H
--- NOTE | 2021-06-11 14:39 | DSE_ITS ---
Date of service: 06/11/21 Time of Service: 14:39 DS: Diagnosis Discharge Diagnosis (1) UTI (urinary tract infection): Status: Acute Asessment and Plan: Patient had 4 days of high dose Rocephin 2 gm daily after instrumentation including cystoureteroscopy and ureteral stent placement of his left ureter and Holmium laser lithotripsy of nephrolithiasis which had lodged in the proximal left ureter and was pushed back into the pelvis before lithotripsy. He will go home on another week of Augmentin for Group B Strep urosepsis. This will complete 11 days of therapy. He will see Dr. Osuna next week and further antibiotics can be decided then. He may need suppressive therapy until his stents are removed. (2) Ulcer of hermosillo limited to breakdown of skin: Status: Acute Asessment and Plan: I asked his nurse to remove the Mepilex and wash the wound w/ chlorhexidine and apply Bacitracin and reapply new Mepilex. Patient was told to wash daily w/ soap and water and reapply bacitracin and notify his PCP of any worsening. This apparently was a skin blister that broke and nursing applied a Mepilex, however, it appeared to have some purulent drainage. Patient will be on Augmentin for one week for his UTI which should cover any skin infection (3) Atrial fibrillation with rapid ventricular response: Status: Resolved (4) Acute kidney injury superimposed on chronic kidney disease: Status: Resolved (5) Diabetes mellitus: Status: Chronic (6) Essential hypertension: Status: Chronic (7) Obstructive sleep apnea syndrome: Status: Chronic (8) Discharge planning issues: Status: Resolved Discharge Plan Disposition Condition: Stable Discharge Details Reason For Visit: Rapid AFIB Admit Date/Time: 06/09/21 16:02 Admit Provider: Gisella Issa Attending Provider: Gisella Issa Primary Care Provider: Constantine [facility] Meds and New Rx's Prescriptions: No Action finasteride 5 mg tablet 5 mg PO DAILY Qty: 90 RF: 3 lisinopril 5 mg tablet 5 mg PO DAILY Qty: 90 RF: 3 metoprolol succinate 100 mg tablet extended release 24 hr 100 mg PO DAILY Qty: 90 RF: 3 nystatin 100,000 unit/gram cream 1 applic topical BID Qty: 30 RF: 2 oxycodone 5 mg capsule 5 mg PO Q6H MDD 4 PRN (Reason: pain) Qty: 12 RF: 0 multivitamin [Daily Vitamin] 1 EACH tablet 2 ea PO DAILY RF: 0 cyanocobalamin (vitamin B-12) [Vitamin B-12] 500 MCG tablet 500 mcg PO DAILY RF: 0 calcium carbonate-vitamin D3 [Calcium 600 + D(3)] 1 EACH tablet 2 ea PO DAILY RF: 0 iron 159 mg (45 mg iron) tablet extended release 159 mg PO DAILY RF: 0 diltiazem HCl [Cardizem CD] 240 mg capsule,extended release 24hr 240 mg PO DAILY Qty: 90 RF: 3 terazosin 2 mg capsule 2 mg PO DAILY Qty: 90 RF: 3 Farxiga 10 mg tablet 10 mg PO DAILY Qty: 90 RF: 3 lovastatin 20 mg tablet 20 mg PO DAILY Qty: 90 RF: 3 bupropion HCl 150 mg tablet extended release 24 hr 150 mg PO DAILY 30 Days Qty: 30 RF: 1 Eliquis 5 mg tablet 5 mg PO BID Qty: 180 RF: 0 metformin [Glucophage] 1,000 mg tablet 1,000 mg PO DAILY Qty: 180 RF: 4 triamcinolone acetonide 0.1 % ointment 1 applic TOPICAL DAILY RF: 0 furosemide 20 mg tablet 20 mg PO DAILY RF: 0 tamsulosin [Flomax] 0.4 mg capsule 0.4 mg PO DAILY Qty: 10 RF: 0 Vitamin C 1,000 MG tablet extended release 1,000 mg PO DAILY RF: 0 omega-3 fatty acids [Fish Oil Concentrate] 1,000 mg Capsule 2,400 mg PO DAILY RF: 0 ondansetron 4 mg tablet,disintegrating 4 mg PO Q6H PRN (Reason: nausea and vomiting) Qty: 10 RF: 0 Discharge Instructions Additional Instructions: will need repeat procedure for cystoscopy and stent removal - my office will contact pt but he will also need to see his PCP for better diabetes and a fib control before he can have anesthesia at our facility again. [facility] have an appointment at [facility] on 06/13/21 at 10:55 to discuss your afib and blood glucose control. may restart Eliquis once no blood is seen in urine Stand Alone Forms: [facility] Activity:: Activity as Tolerated Shower/Bathe:: 24 hours Diet:: As Tolerated DS: Summary Time Spent with Patient providing and/or coordinating discharge services: Greater than 30 minutes Status at Discharge Functional status at discharge: independent ambulation Overall status at discharge: patient is back to baseline Mental Status: mental status grossly normal Speech and Movement: speech and movement normal Mood: congruent mood Affect: normal affect Exam Narrative Exam Narrative: Obese white male, alert and oriented x 3, watching TV having finished his lunch. Currently receiving his Rocephin Lungs: clear Heart: irregularly irregular Abdomen: obese, soft, nontender Extremities w/out pitting edema; he has a small superficial skin ulceration over right hermosillo draining small amount of purulent discharge; I instructed him to wash this w/ soap and water and apply bacitracin to this. Psych Mental Status: mental status grossly normal Speech and Movement: speech and movement normal Mood: congruent mood Affect: normal affect DS: Data Vitals/I&O Vitals and I&O: Vital Signs Temperature 36.3 C L 06/11/21 08:49 Temperature Source Tympanic 06/11/21 08:49 Pulse 94 H 06/11/21 08:49 Pulse Rhythm Regular 06/11/21 09:56 Pulse 89 06/09/21 16:01 Respiratory Rate 18 06/11/21 08:49 Respiratory Effort Non-Labored 06/11/21 09:56 Respiratory Depth Normal 06/11/21 09:56 Respiratory Pattern Normal 06/11/21 09:56 Blood Pressure 122/78 06/11/21 08:49 Blood Pressure Mean 75 06/09/21 21:20 Blood Pressure Position Supine 06/08/21 10:37 Pulse Oximetry 98 06/11/21 08:49 Respiratory End-tidal CO2 20 06/08/21 16:30 Oxygen Delivery Method Room Air 06/11/21 08:49 Oxygen Flow Rate 0 06/11/21 08:49 Pain Level 0 06/11/21 08:49 Comment 06/08/21 10:37 Intake & Output 06/10/21 06/11/21 06/11/21 23:59 11:59 23:59 Intake Total 1050 / 3147.5 450 / 1180 730 / 1180 Output Total 300 / 2145 1500 / 1500 Balance 750 / 1002.5 -1050 / -320 730 / -320 Weight 104.19 kg Intake: IV 1050 / 2947.5 Oral 450 / 1180 730 / 1180 Output: Urine 300 / 2145 1500 / 1500 Other: Urine Color Dark Red Brown Urine Appearance Clear Clear Urine Odor Strong Stool Size Moderate Stool Characteristics Soft Foamy Voiding Methods Urinal Urinal Data Completed and Pending Labs on day of discharge: Labs from last 24 hours 06/11/21 06/11/21 06:12 06:12 WBC 12.58 H RBC 3.26 L Hgb 9.4 L Hct 29.5 L MCV 90.5 MCH 28.8 MCHC 31.9 L RDW 13.5 Plt Count 296 MPV 9.5 Immature Gran % 1.0 Neutrophils % 83.3 Lymphocytes % 7.3 Monocytes % 7.2 Eosinophils % 1.0 Basophils % 0.2 Nucleated RBC % 0 Absolute Neutrophils 10.48 H Absolute Lymphocytes 0.92 L Absolute Monocytes 0.91 H Absolute Eosinophils 0.13 Absolute Basophils 0.03 Sodium 139 Potassium 3.7 Chloride 105 Carbon Dioxide 23.7 Anion Gap 10.3 BUN 31 H D Creatinine 1.3 Estimated GFR/1.73 m2 54.42 Glucose 106 D Calcium 7.7 L C-Reactive Protein 9.44 H Preliminary micro results at discharge 06/09/21 17:48 Blood Culture - Preliminary Blood NO GROWTH 24 HOURS 06/09/21 17:40 Blood Culture - Preliminary Blood NO GROWTH 24 HOURS [facility] Medical History Anxiety (08/10/08) Asbestosis (08/10/08) Asthma (07/08/12) pt. denies this Atopic conjunctivitis (10/22/13) Atrial fibrillation Benign prostatic hyperplasia (02/25/13) Bladder cancer Carpal tunnel syndrome Chronic anticoagulation Chronic venous stasis Depressive disorder (02/25/13) Diabetes mellitus (02/25/13) Essential hypertension (06/24/13) Frequency of micturition (01/03/16) Glaucoma (10/22/13) B/L Gross hematuria High grade dysplasia in colonic adenoma Hyperlipidemia (02/25/13) Hypermetropia (10/22/13) Hypogonadism Idiopathic peripheral neuropathy Low back pain (08/10/08) Noncompliance Nuclear senile cataract (10/22/13) Obesity (08/10/08) Aviva-en-y 02/2014 Obstructive sleep apnea syndrome (08/10/08) cpap Olecranon bursitis Osteoarthritis (08/10/08) BILATERAL KNEE replacements Peptic reflux disease (08/10/08) Peripheral neuralgia Phimosis Presbyopia (10/22/13) Pterygium (08/10/08) LEFT EYE Regular astigmatism (10/22/13) Sensorineural hearing loss, bilateral (09/05/17) Tubular adenoma Tubular and tubulovillous adenoma 2011 --suggested repeat 2017 Umbilical hernia (08/18/12) Urgency of urination (01/03/16) Urinary tract infection Urothelial carcinoma Varicose veins of lower extremity (08/10/08) Venous insufficiency (chronic) (peripheral) Surgical History History of transurethral destruction of bladder lesion Ronnell Fundoplication Repair of umbilical hernia Laparoscopic Aviva-en-y surgery for weight loss S/P cholecystectomy (~01/04/21) acute hemorrhagic cholecystitis and xanthogranulomatous inflammation S/P colonoscopy [place]-2011- tubular and tubulovillous polyps [place]- 2019- sessile serrated with low grade dysplacia, tubullovillous with high grade dysplacia and tubular adenomas S/P partial colectomy (~05/09/20) Status post abdominoplasty (05/23/16) Status post tonsillectomy Status post total knee replacement B/L Vasectomy Family History Mother Cancer Father Heart disease Sister Cancer Sister No problems noted. Brother No problems noted. Brother No problems noted. Brother No problems noted. Son No problems noted. Son No problems noted. Son No problems noted. Social History Smoking/Tobacco Use Status: Never Second Hand Exposure: Yes Smoking risk assessment performed?: Yes Alcohol Intake: never Drug use: Never Substance use type: does not use Caregiver/Support person: No Household members: other Details: son Housing: apartment Communication Needs: None Do you need help understanding health information?: Never Pets and animals: No Do you think of yourself as: straight/heterosexual Current gender identity: male What is your relationship status?: How often do you talk on the phone with friends or family?: once per week How often do you get together with friends or relatives?: decline to answer How often do you attend taoism or jew services?: decline to answer Do you belong to any clubs or organized social groups?: no Panel score (0-1 are the most socially isolated patients): 0 What type of physical activity do you participate in: walking Duration: 15-30 minutes/day Frequency: 1-2 times per week Velia/Restoration: Buddhist Special velia needs: No Seatbelt use: always Helmet use: No Drive intox or ride w/intox local truck driver: No Do you feel safe at home: Yes Do you feel safe in your relationship?: Yes
[2021-06-11] MEDS: Bacitracin 1 PACKET (14:52)
--- NOTE | 2021-06-11 15:00 | HOLTER_ITS ---
APPROVED REPORT Conclusion This is a 48-hour Holter monitor ordered for atrial fibrillation Atrial fibrillation was present throughout, with an average heart rate of 101. Minimum was 75, maxim um 145 There were rare ventricular ectopic beats. Some complexes labeled PVCs may have been atrial fibrilla tion with aberrancy There were no pauses greater than 3 seconds No patient symptoms were reported
--- NOTE | 2021-06-11 16:18 | PDOC.CMDIS ---
- If Service Date Differs Date of service: 06/11/21 Time of Service: 16:18 LACE Index Scoring Tool - Questions: Length of Stay (in days): 2 Acuity (Admit via E.D.?): No Comorbidities: Diabetes w/o Complication, Any Tumor E.D. Visits: 3 - Answers: Total Score: 8 Risk of Readmission: Low Risk Care Management Discharge Reason for Hospitalization: Afib with RVR Discharge Plan: Eugene will be discharged home with no new services. He will follow up with his PCP, Urology and plan of care and transport with family. Patient/Family Education Needs: Review of discharge instructions, follow up plan, medications, activity, Ask Me Three
== END 2021-06-11 15:33 | disposition home or self-care (01) | DRG 660 ==
LOC: ICU 06-09 06:03 → MS 06-10 12:35
PROVIDERS: Internal Medicine; Nurse Anesthetist, Certified Registered; Urology; Admitting Provider Internal Medicine; PCP Internal Medicine; Visit Provider Internal Medicine
PROC: 0TF78ZZ Fragmentation in Left Ureter, Via Natural or Artificial Opening Endoscopic (ICD-10-PCS; CPT 52356; principal; 2021-06-08 07:30)
DX: N20.1 Calculus of ureter (principal); N17.9 Acute kidney failure, unspecified; N39.0 Urinary tract infection, site not specified; L97.801 Non-pressure chronic ulcer of other part of unspecified lower leg limited to breakdown of skin; C67.9 Malignant neoplasm of bladder, unspecified; J44.9 Chronic obstructive pulmonary disease, unspecified; I48.91 Unspecified atrial fibrillation; F41.9 Anxiety disorder, unspecified; J61 Pneumoconiosis due to asbestos and other mineral fibers; N40.0 Benign prostatic hyperplasia without lower urinary tract symptoms; Z79.01 Long term (current) use of anticoagulants; F32.9 Major depressive disorder, single episode, unspecified; R35.0 Frequency of micturition; H40.9 Unspecified glaucoma; E78.5 Hyperlipidemia, unspecified; M54.5 Low back pain; Z98.84 Bariatric surgery status; G47.33 Obstructive sleep apnea (adult) (pediatric); Z96.653 Presence of artificial knee joint, bilateral; H90.3 Sensorineural hearing loss, bilateral; I87.2 Venous insufficiency (chronic) (peripheral); R06.02 Shortness of breath; E11.22 Type 2 diabetes mellitus with diabetic chronic kidney disease; E11.42 Type 2 diabetes mellitus with diabetic polyneuropathy; I12.9 Hypertensive chronic kidney disease with stage 1 through stage 4 chronic kidney disease, or unspecified chronic kidney disease; Z79.4 Long term (current) use of insulin; Z91.14 Patient's other noncompliance with medication regimen; Z20.822 Contact with and (suspected) exposure to COVID-19; R31.9 Hematuria, unspecified; B95.1 Streptococcus, group B, as the cause of diseases classified elsewhere; N99.89 Other postprocedural complications and disorders of genitourinary system
CPT/HCPCS: 52356; 36410; 36415; 80048; 84145; 87040; 87635; 99231; 71045; 74420; 81003; 81015; 83735; 84439; 84443; 84484; 85025; 86140; 87086; 93005; 93010; 93225; 94660; 99223; 99232; 99233; 99239; J0690; J0696; J1100; J1815; J2001; J2370; J2405; J3010; J3475; J3490; Q9967

== ENCOUNTER 2021-06-20 17:06 | Outpatient (RCR) | payer OTHER, SELFPAY | END 2021-06-29 14:58 | LOC: RT 17:06 | PROVIDERS: PCP Internal Medicine; Visit Provider Internal Medicine | DX: I48.91 Unspecified atrial fibrillation (principal); I49.3 Ventricular premature depolarization | CPT/HCPCS: 93227; 93226 ==

== ENCOUNTER → 2021-07-13 01:15 | Outpatient (CLI) | payer MEDICARE, SELFPAY ==
--- NOTE | 2021-07-13 09:00 | DI.NM_ITS ---
APPROVED REPORT The resting electrocardiogram showed atrial fibrillation, poor R wave progression Patient exercised on the Luis M protocol and completed a workload of 4.6 METS limited by dyspnea and f atigue Rapid increase in heart rate with exercise. The patient achieved greater than 85% of predicted heart rate for age Electrocardiographically there was no evidence of myocardial ischemia Conclusion Poor exercise tolerance limited by dyspnea and fatigue Electrocardiographically no evidence of myocardial ischemia with exercise Nuclear images were reviewed with Dr. Lopez the radiologist There was no evidence of ischemia or prior infarction Calculated EF was 56%, normal wall motion
== END ==
PROVIDERS: PCP Internal Medicine; Visit Provider Family Medicine
DX: R06.09 Other forms of dyspnea (principal)
CPT/HCPCS: 78452; 93016; 93018; 93017

== ENCOUNTER 2021-07-21 14:20 | Outpatient (CLI) | payer MEDICARE, SELFPAY ==
--- NOTE | 2021-07-21 14:15 | RT.EKG_ITS ---
APPROVED REPORT Exam: Resting ECG Reason for Exam: afib Patient Location: O HR:97 bpm ECG Measurements Heart Rate 97 AXIS [place] [id number] P [id number] QRSd 99 QRS 54 QT 365 T 14 QTc 464 Conclusion Atrial fibrillation...? atrial activity Low voltage, extremity and precordial leads...extremity<0.5mV, precordial<1.0mV Baseline wander in lead(s) V2
== END 2021-07-21 14:21 | disposition home or self-care (01) ==
LOC: DI.CARD 14:21
PROVIDERS: PCP Internal Medicine; Referring Provider Internal Medicine; Visit Provider Internal Medicine Cardiovascular Disease
DX: I48.91 Unspecified atrial fibrillation (principal)
CPT/HCPCS: 93010

== ENCOUNTER → 2021-07-21 14:20 | Outpatient (BNVA) | payer MEDICARE, SELFPAY | PROVIDERS: PCP Internal Medicine; Referring Provider Internal Medicine; Visit Provider Internal Medicine Cardiovascular Disease | DX: I48.21 Permanent atrial fibrillation (principal); I10 Essential (primary) hypertension; Z01.810 Encounter for preprocedural cardiovascular examination; E11.22 Type 2 diabetes mellitus with diabetic chronic kidney disease; N18.9 Chronic kidney disease, unspecified; Z79.01 Long term (current) use of anticoagulants | CPT/HCPCS: 93005; 99214 ==

== ENCOUNTER 2021-08-28 18:05 | Outpatient (REF) | payer MEDICARE, SELFPAY ==
[2021-08-30 15:12] LABS: Fructosamine 287 mcmol/L (200 - 285)
== END 2021-08-28 18:06 | disposition home or self-care (01) ==
LOC: NCHCN 18:05
PROVIDERS: PCP Internal Medicine; Visit Provider Family Medicine
DX: E11.65 Type 2 diabetes mellitus with hyperglycemia (principal)
CPT/HCPCS: 82985

== ENCOUNTER → 2021-09-27 14:03 | Outpatient (BNVA) | payer MEDICARE, SELFPAY | PROVIDERS: PCP Internal Medicine; Referring Provider Internal Medicine; Visit Provider Nurse Practitioner Gerontology | DX: N39.0 Urinary tract infection, site not specified (principal); R31.9 Hematuria, unspecified; R82.998 Other abnormal findings in urine | CPT/HCPCS: 81003; 99213 ==

== ENCOUNTER 2021-09-27 16:07 | Outpatient (REF) | payer MEDICARE, SELFPAY | END 2021-09-27 16:08 | disposition home or self-care (01) | LOC: LBN 16:07 | PROVIDERS: PCP Internal Medicine; Visit Provider Nurse Practitioner Gerontology | DX: N39.0 Urinary tract infection, site not specified (principal) | CPT/HCPCS: 87086 ==

== ENCOUNTER 2021-10-11 09:43 | Outpatient (REF) | payer MEDICARE, SELFPAY ==
[2021-10-11 15:21] LABS: Abs Immature Grans 0.03 10^3/uL (0.0-0.06); Absolute Basophil Count 0.04 10^3/uL (0.0-0.2); Absolute Eosinophil Count 0.39 10^3/uL (0.0-0.7); Absolute Lymphocyte Count 0.97 10^3/uL (1.2-3.4); Absolute Monocyte Count 0.78 10^3/uL (0.1-0.8); Absolute Neutrophil Count 5.33 10^3/uL (1.2-6.7); Basophils % 0.5; Eosinophils % 5.2; HCT 40.3 % (40.0-50.0); HGB 12.2 g/dL (13.5-17.5); Immature Grans % 0.4; Lymphocytes % 12.9; MCH 26.3 pg (27.0-33.0); MCHC 30.3 % (32.0-36.0); MCV 86.9 fL (80-95); MPV 9.9 fL (8.0-11.0); Monocytes % 10.3; Neutrophils % 70.7; Nucleated RBC 0 %; Platelet Count 266 10^3/uL (130-400); RBC 4.64 10^6/uL (4.36-5.78); RDW 15.8 % (11.8-14.1); RDW-SD 50.9 fL; WBC 7.54 10^3/uL (4.4-10.8)
[2021-10-11 16:17] LABS: BUN 30 mg/dL (7-18); CREATININE 1.4 mg/dL (0.70-1.30); Calcium 8.4 mg/dL (8.5-10.1); Chloride 107 mmol/L (98-107); Estimated GFR 49.96 (mL/min/1.73m2); Ferritin 77 ng/mL (26-388); Glucose 127 mg/dL (74-106); Potassium 4.2 mmol/L (3.5-5.1); Sodium 142 mmol/L (136-145)
[2021-10-11 16:40] LABS: Uric Acid 5.9 mg/dL (3.5-7.2)
[2021-10-12 10:15] LABS: Hepatitis C Ab w Rflx HCV PCR Negative (Negative)
[2021-10-12 10:27] LABS: HIV-1/2 Ag & Ab Screen Negative (Negative)
== END 2021-10-11 09:44 | disposition home or self-care (01) ==
LOC: NCHCN 09:43
PROVIDERS: PCP Internal Medicine; Visit Provider Family Medicine
DX: M25.531 Pain in right wrist (principal); E11.65 Type 2 diabetes mellitus with hyperglycemia; D50.9 Iron deficiency anemia, unspecified; Z11.4 Encounter for screening for human immunodeficiency virus [HIV]; Z11.59 Encounter for screening for other viral diseases
CPT/HCPCS: 80048; 86803; 87389; 82728; 84550; 85025

== ENCOUNTER → 2021-10-12 02:24 | Outpatient (CLI) | payer MEDICARE, SELFPAY ==
--- NOTE | 2021-10-12 | DI.RAD_ITS ---
Exam(s) XR WRIST RT COMPLETE EXAM: XR WRIST RT COMPLETE CLINICAL HISTORY: RT WRIST PAIN, M25.531. TECHNIQUE: 2D digital imaging was performed of the right wrist. Three views were obtained. PA, lat eral and oblique views were obtained. COMPARISON: No exams were available for comparison FINDINGS: BONES: No acute fracture is present. No bony destructive lesion is seen. JOINTS: Multi compartment degenerative changes are seen in the wrist. SOFT TISSUE: Atherosclerosis is present. IMPRESSION: Moderate degenerative changes of the right wrist. DATA REPOSITORY: RADIATION DOSE DELIVERED:
== END ==
PROVIDERS: PCP Internal Medicine; Visit Provider Family Medicine
DX: M25.531 Pain in right wrist (principal); M19.031 Primary osteoarthritis, right wrist
CPT/HCPCS: 73110

== ENCOUNTER 2021-12-22 23:03 | Outpatient (REF) | payer MEDICARE, SELFPAY | END 2021-12-22 23:04 | disposition home or self-care (01) | LOC: NCHCN 23:03 | PROVIDERS: PCP Internal Medicine; Visit Provider Family Medicine | DX: R30.0 Dysuria (principal) | CPT/HCPCS: 87086 ==

== ENCOUNTER 2022-01-01 11:02 | Outpatient (REF) | payer MEDICARE, SELFPAY | END 2022-01-01 11:03 | disposition home or self-care (01) | LOC: NCHCN 11:02 | PROVIDERS: PCP Internal Medicine; Visit Provider Family Medicine | DX: N39.0 Urinary tract infection, site not specified (principal) | CPT/HCPCS: 87086 ==

== ENCOUNTER → 2022-01-23 14:19 | Outpatient (BNVA) | payer MEDICARE, SELFPAY | PROVIDERS: PCP Internal Medicine; Referring Provider Internal Medicine; Visit Provider Urology | DX: R30.0 Dysuria (principal); N20.0 Calculus of kidney; C68.9 Malignant neoplasm of urinary organ, unspecified | CPT/HCPCS: 81003; 87088; 99215 ==

== ENCOUNTER 2022-01-23 17:05 | Outpatient (REF) | payer MEDICARE, SELFPAY | END 2022-01-23 17:06 | disposition home or self-care (01) | LOC: LBN 17:05 | PROVIDERS: PCP Internal Medicine; Visit Provider Urology | DX: R30.0 Dysuria (principal); C68.9 Malignant neoplasm of urinary organ, unspecified | CPT/HCPCS: 87086 ==

== ENCOUNTER 2022-02-09 02:13 | Outpatient (CLI) | payer MEDICARE, SELFPAY ==
[2022-02-09 10:22] LABS: Source Nasal/Nares
[2022-02-09 13:14] LABS: COVID-19 PCR Negative (Negative)
== END 2022-02-09 02:14 | disposition home or self-care (01) ==
LOC: LBO 02:13
PROVIDERS: PCP Internal Medicine; Visit Provider Urology
DX: Z20.822 Contact with and (suspected) exposure to COVID-19 (principal); Z01.818 Encounter for other preprocedural examination
CPT/HCPCS: 87635; U0005

== ENCOUNTER 2022-02-12 06:19 | Day surgery (SDC) | payer MEDICARE, SELFPAY ==
[2022-02-12] VITALS (7 sets, daily range): BP systolic 109–119; BP diastolic 50–78; PULSE 71–83; RESP 13–21; TEMP 36–36.3; O2SAT 94–99; BMI 30.2
--- NOTE | 2022-02-12 06:11 | W.ANESPRE ---
General Info Date of Service Date Performed: 02/12/22 Height: 5 ft 9.75 in Weight: 94.801 kg Body Mass Index (BMI): 30.2 Surgical Procedure: Operation Date: 02/12/22 07:40 Proposed Procedure Side Surgeon p Cystoscopy/Laser/Retrograde/Ureteroscopy/Ureteral Stent Removal Left Tamir Osuna MD Meds Allergies and Home Medications Allergies Allergy/AdvReac Type Severity Reaction Status Date / Time No Known Allergies Allergy Verified 02/09/22 13:14 Home Medication Medication Instructions Recorded calcium carbonate 600 mg-vitamin 2 ea PO DAILY 03/29/14 D3 10 mcg (400 unit) tablet (Calcium 600 + D(3)) cyanocobalamin (vitamin B-12) 500 500 mcg PO DAILY 03/29/14 mcg tablet (Vitamin B-12) multivitamin (Daily Vitamin) 2 ea PO DAILY 03/29/14 ascorbic acid (vitamin C) 1,000 mg 1,000 mg PO DAILY 01/03/18 tablet,extended release (Vitamin C ER) omega-3 fatty acids 1,000 mg 2,400 mg PO DAILY 10/20/18 capsule (Fish Oil Concentrate) ferrous sulfate, dried 159 mg (45 159 mg PO DAILY 07/28/19 mg iron) tablet,extended release (iron ER) finasteride 5 mg tablet 5 mg PO DAILY #90 tab 04/27/20 lisinopril 5 mg tablet 5 mg PO DAILY #90 tab-cap 04/27/20 dapagliflozin 10 mg tablet 10 mg PO DAILY #90 tab 11/11/20 (Farxiga) metoprolol succinate 100 mg 100 mg PO DAILY #90 tab 01/10/21 tablet,extended release 24 hr lovastatin 20 mg tablet 20 mg PO DAILY #90 tab-cap 01/12/21 nystatin 100,000 unit/gram topical 1 applic TOPICAL BID #30 g 02/03/21 cream apixaban 5 mg tablet (Eliquis) 5 mg PO BID #180 tab 04/11/21 furosemide 20 mg tablet 20 mg PO DAILY 06/01/21 tamsulosin 0.4 mg capsule (Flomax) 0.4 mg PO DAILY #10 cap 06/01/21 triamcinolone acetonide 0.1 % 1 applic TOPICAL DAILY 06/01/21 topical ointment diltiazem HCl 300 mg capsule,24 300 mg PO DAILY 04/14/22 hr,extended release (Tiadylt ER) insulin glargine 100 unit/mL 10 unit SUBCUT QPM 01/18/22 subcutaneous solution (Lantus U-100 Insulin) semaglutide 7 mg tablet 7 mg PO DAILY 01/18/22 metformin 1,000 mg tablet 1,000 mg PO BID 01/23/22 phenazopyridine 200 mg tablet 200 mg PO TID PRN #20 tab 01/23/22 (Pyridium) fluconazole 200 mg tablet 200 mg PO DAILY #14 tab 01/26/22 (Diflucan) Current Visit Medications: Current Medications Generic Name Dose Route Start Last Admin Trade Name Freq PRN Reason Stop Dose Admin Ringer's Solution 1,000 mls @ 80 mls/hr 02/12/22 06:00 IV 03/11/22 23:59 INFUSION [facility] IV Miscellaneous Supplies 1 each 02/12/22 06:00 Iv Access IV 03/11/22 23:59 DIRECTED LUIS ALBERTO Sodium Chloride 0 ml 02/12/22 06:00 Normal Saline Flush 10 Ml Syr IV 03/11/22 23:59 PRN PRN Sodium Chloride 0 ml 02/12/22 06:00 Normal Saline 10 Ml Vial IJ 03/11/22 23:59 DIRECTED PRN Sterile Water 0 ml 02/12/22 06:00 Water,Injection,Sterile 10 Ml Vial IJ 03/11/22 23:59 DIRECTED PRN PFSH Active Problems Active Problems: Problem Status Onset Code Recurrent nephrolithiasis N20.0 Screening for colon cancer Z12.11 Atrial fibrillation with rapid ventricular response I48.91 Dysplastic colon polyp K63.5 High grade dysplasia in colonic adenoma D12.6 Obstructive sleep apnea syndrome 08/10/08 G47.33 Urothelial carcinoma C68.9 Medical History Medical History (Updated 02/12/22 @ 06:40 by Tamir Osuna MD) Acute kidney injury superimposed on chronic kidney disease Anxiety (08/10/08) Asbestosis (08/10/08) Asthma (07/08/12) pt. denies this Atopic conjunctivitis (10/22/13) Atrial fibrillation Benign prostatic hyperplasia (02/25/13) Bladder cancer Carpal tunnel syndrome Chronic anticoagulation Chronic venous stasis Creatinine elevation Depressive disorder (02/25/13) Diabetes mellitus (02/25/13) Diabetic leg ulcer Elevated WBCs Essential hypertension (06/24/13) Frequency of micturition (01/03/16) Glaucoma (10/22/13) B/L Gross hematuria Hyperglycemia Hyperlipidemia (02/25/13) Hypermetropia (10/22/13) Hypogonadism Idiopathic peripheral neuropathy Low back pain (08/10/08) Noncompliance Nuclear senile cataract (10/22/13) Obesity (08/10/08) Aviva-en-y 02/2014 Olecranon bursitis Osteoarthritis (08/10/08) BILATERAL KNEE replacements Peptic reflux disease (08/10/08) Peripheral neuralgia Phimosis Presbyopia (10/22/13) Pterygium (08/10/08) LEFT EYE Regular astigmatism (10/22/13) Sensorineural hearing loss, bilateral (09/05/17) Tubular adenoma Tubular and tubulovillous adenoma 2011 --suggested repeat 2017 Ulcer of hermosillo limited to breakdown of skin Umbilical hernia (08/18/12) Ureterolithiasis Urgency of urination (01/03/16) Urinary tract infection UTI (urinary tract infection) Varicose veins of lower extremity (08/10/08) Venous insufficiency (chronic) (peripheral) Surgical History Surgical History (Updated 02/12/22 @ 06:35 by Karley Sheppard RN) History of transurethral destruction of bladder lesion Hx of total knee arthroplasty Pt reports he has had a left and right knee repacement. Pt doesnt remember when and thinks he had it done at [facility] [place] Fundoplication Repair of umbilical hernia Laparoscopic Aviva-en-y surgery for weight loss S/P cholecystectomy (~01/04/21) acute hemorrhagic cholecystitis and xanthogranulomatous inflammation S/P colonoscopy Haddad-2011- tubular and tubulovillous polyps Santiago- 2019- sessile serrated with low grade dysplacia, tubullovillous with high grade dysplacia and tubular adenomas S/P partial colectomy (~05/09/20) Status post abdominoplasty (05/23/16) Status post cholecystectomy Status post tonsillectomy Status post total knee replacement B/L Vasectomy Tobacco Smoking/Tobacco Use Status: Never Second hand exposure: Yes Alcohol Alcohol Intake: never Substance Use Substance use: Never Substance use type: does not use Vital Signs and Lab Results Vital Signs Most Recent Vital Signs in EMR: Temp Pulse Resp BP Pulse Ox 36.3 C L 80 16 109/58 L 98 02/12/22 06:40 02/12/22 06:40 02/12/22 06:40 02/12/22 06:40 02/12/22 06:40 Lab Results Blood Type / Crossmatch: No Data to Display Complete Blood Count: No Data to Display Complete Metabolic Panel: No Data to Display Liver Function Panel: No Data to Display Coagulation Panel: No Data to Display Cardiac Panel: No Data to Display Arterial Blood Gas: No Data to Display Venous Blood Gas: No Data to Display Pancreas Panel: No Data to Display Thyroid Panel: No Data to Display Infectious Disease: Coronavirus (COVID-19)(PCR) Negative (Negative) 02/09/22 09:30 02/09/22 Coronavirus 2019 Source Nasal/Nares 02/09/22 09:30 02/09/22 Blood Cultures: No Data to Display Toxicology Panel: No Data to Display Imaging and Studies Imaging and Studies Study information below may be from another EMR and interpreted by another provider. Please see original notes in EMR for more complete details. EKG Summary: 07/21/21: a fib, lowvoltage. Stress Test Summary: 07/2021: LVEF 56%, 4.6 mets. no evidence of ischemia on EKG or images. Echocardiogram Summary: 11/2020: LVEF 55%, no WMA, normal RV fxn. LA severe dilation, RA moderate dilation. moderate MR. moderate TR. mild pHTN - 42 mmhg Anesthesia Assessment and Plan Anesthesia History Personal History: No History of Anesthesia Complications Family History: No Family History of Anesthesia Complications Exercise Tolerance Exercise Tolerance: Metabolic Equivalents>4 (walks up 14 flights of stairs. ) Cardiac & Pulmonary Exam Cardiac Exam: Normal S1/S2 Heart Sounds Pulmonary Exam: Clear Bilateral Breath Sounds Implantable Cardiac Device Does patient have a Pacemaker or an ICD?: No Airway Exam Known Difficult Airway: No Mallampati Class: 4 Mouth Opening: Normal (> 3cm) Thyromental Distance: Less than 3 cm Neck Range of Motion: Full ROM Neck Circumference: Normal Teeth Condition: Normal Dentition ASA Classification ASA Score: ASA 3 Emergency Case?: No NPO Status NPO Status: NPO Clears >2 hours, Solids >8 hours Anesthesia Plan Resuscitation Status: Full Code Anesthesia Technique: General Anesthesia Airway Planned: LMA Monitors Used: Standard Monitors Preoperative Comments:: 71 yo male for stent removal, stone removal. Sig PMHx: COPD, HTN, a fib, DM. Previous Anes: mccullough 2 grade 1, easy mask, LMA 4 i gel, and GA without airway. Last anes was admitted post operatively for poor HR control. potentially due to not taking home medications as prescribed. Poor historian, unclear if it is just [place]. states that he did take his dilt this AM, but unclear as to what else, apixaban has been stopped for ~3 days.
--- NOTE | 2022-02-12 06:34 | W.PM.HP.N ---
Date of service: 02/12/22 Time of Service: 06:34 Assessment and Plan Assessment and plan (1) Recurrent nephrolithiasis: Status: Acute Assessment and plan: For cystoscopy, stent removal, left flexible ureteroscopy with possible holmium laser lithotripsy. Based on his prior urine culture results, we will prophylax him with both antibiotics and an oral dose of diflucan. History of Present Illness History of Present Illness Chief Complaint: Left renal stone Narrative: This is a 71-year-old gentleman who was previously seen with a left ureteral stone.? He had a stent placed but the stone was not completely treated.? Immediately after the procedure, the patient developed atrial fibrillation requiring additional hospitalization.? Because of his cardiac issues and poorly controlled diabetes, he was not felt to be a good surgical candidate at our tertiary care facility until he received cardiac clearance and improved diabetic control. He was then seen by the urology team down at [facility].? He had his stent changed but ureteroscopy was not accomplished because his urine looked quite murky and there was concern for a urinary tract infection.? It looks as if the ureteroscopy was rescheduled for a few weeks later, but was never accomplished.? His current indwelling stent has been present since October. In the meantime, he has seen cardiology and had a normal echocardiogram.? His diabetes is under much better control and his hemoglobin A1c is down to 7.1.? He is interested in having the remainder of his urologic care closer to home. He presents for ureteroscopy and stone manipulation. Review of Systems Narrative: No fevers or chills No vision change or dysphasia Diabetes. No thyroid dysfunction COPD. No hemoptysis Hx Atrial Fibrillation. No chest pain No hepatitis, ulcers, jaundice, diarrhea or constipation No seizures, strokes or peripheral neuropathy Bruises easily - on Eliquis No gout PFSH All Active Problems (Updated 02/12/22 @ 06:40 by Tamir Osuna MD) Obstructive sleep apnea syndrome (Chronic 08/10/08) cpap Dysplastic colon polyp (Acute) Urothelial carcinoma (Acute) 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) Screening for colon cancer (Acute) Recurrent nephrolithiasis (Acute) Medical History (Updated 02/12/22 @ 06:40 by Tamir Osuna MD) Acute kidney injury superimposed on chronic kidney disease Anxiety (08/10/08) Asbestosis (08/10/08) Asthma (07/08/12) pt. denies this Atopic conjunctivitis (10/22/13) Atrial fibrillation Benign prostatic hyperplasia (02/25/13) Bladder cancer Carpal tunnel syndrome Chronic anticoagulation Chronic venous stasis Creatinine elevation Depressive disorder (02/25/13) Diabetes mellitus (02/25/13) Diabetic leg ulcer Elevated WBCs Essential hypertension (06/24/13) Frequency of micturition (01/03/16) Glaucoma (10/22/13) B/L Gross hematuria Hyperglycemia Hyperlipidemia (02/25/13) Hypermetropia (10/22/13) Hypogonadism Idiopathic peripheral neuropathy Low back pain (08/10/08) Noncompliance Nuclear senile cataract (10/22/13) Obesity (08/10/08) Aviva-en-y 02/2014 Olecranon bursitis Osteoarthritis (08/10/08) BILATERAL KNEE replacements Peptic reflux disease (08/10/08) Peripheral neuralgia Phimosis Presbyopia (10/22/13) Pterygium (08/10/08) LEFT EYE Regular astigmatism (10/22/13) Sensorineural hearing loss, bilateral (09/05/17) Tubular adenoma Tubular and tubulovillous adenoma 2011 --suggested repeat 2017 Ulcer of hermosillo limited to breakdown of skin Umbilical hernia (08/18/12) Ureterolithiasis Urgency of urination (01/03/16) Urinary tract infection UTI (urinary tract infection) Varicose veins of lower extremity (08/10/08) Venous insufficiency (chronic) (peripheral) Surgical History (Updated 02/12/22 @ 06:35 by Karley Sheppard RN) History of transurethral destruction of bladder lesion Hx of total knee arthroplasty Pt reports he has had a left and right knee repacement. Pt doesnt remember when and thinks he had it done at [facility] [place] Fundoplication Repair of umbilical hernia Laparoscopic Aviva-en-y surgery for weight loss S/P cholecystectomy (~01/04/21) acute hemorrhagic cholecystitis and xanthogranulomatous inflammation S/P colonoscopy Haddad-2011- tubular and tubulovillous polyps Santiago- 2019- sessile serrated with low grade dysplacia, tubullovillous with high grade dysplacia and tubular adenomas S/P partial colectomy (~05/09/20) Status post abdominoplasty (05/23/16) Status post cholecystectomy Status post tonsillectomy Status post total knee replacement B/L Vasectomy Family History Mother Cancer Father Heart disease Sister Cancer Sister No problems noted. Brother No problems noted. Brother No problems noted. Brother No problems noted. Son No problems noted. Son No problems noted. Son No problems noted. Social History Smoking/Tobacco Use Status: Never Second Hand Exposure: Yes Smoking risk assessment performed?: Yes Alcohol Intake: never Drug use: Never Substance use type: does not use Caregiver/Support person: No Household members: other Details: son Housing: apartment Communication Needs: None Do you need help understanding health information?: Never Pets and animals: No Do you think of yourself as: straight/heterosexual Current gender identity: male What is your relationship status?: How often do you talk on the phone with friends or family?: once per week How often do you get together with friends or relatives?: decline to answer How often do you attend adventism or gnosticism services?: decline to answer Do you belong to any clubs or organized social groups?: no Panel score (0-1 are the most socially isolated patients): 0 What type of physical activity do you participate in: walking Duration: 15-30 minutes/day Frequency: 1-2 times per week Velia/Scientology: Anabaptist Special velia needs: No Seatbelt use: always Helmet use: No Drive intox or ride w/intox port cdl a driver: No Do you feel safe at home: Yes Do you feel safe in your relationship?: Yes Meds Allergies and Home Medications Allergies Allergy/AdvReac Type Severity Reaction Status Date / Time No Known Allergies Allergy Verified 02/09/22 13:14 Home Medications Medication Instructions Recorded Confirmed Type calcium carbonate 600 mg-vitamin 2 ea PO DAILY 03/29/14 02/12/22 History D3 10 mcg (400 unit) tablet (Calcium 600 + D(3)) cyanocobalamin (vitamin B-12) 500 500 mcg PO DAILY 03/29/14 02/12/22 History mcg tablet (Vitamin B-12) multivitamin (Daily Vitamin) 2 ea PO DAILY 03/29/14 02/12/22 History ascorbic acid (vitamin C) 1,000 mg 1,000 mg PO DAILY 01/03/18 02/12/22 History tablet,extended release (Vitamin C ER) omega-3 fatty acids 1,000 mg 2,400 mg PO DAILY 10/20/18 02/12/22 History capsule (Fish Oil Concentrate) ferrous sulfate, dried 159 mg (45 159 mg PO DAILY 07/28/19 02/12/22 History mg iron) tablet,extended release (iron ER) finasteride 5 mg tablet 5 mg PO DAILY #90 tab 04/27/20 02/12/22 Rx lisinopril 5 mg tablet 5 mg PO DAILY #90 tab-cap 04/27/20 02/12/22 Rx dapagliflozin 10 mg tablet 10 mg PO DAILY #90 tab 11/11/20 02/12/22 Rx (Farxiga) metoprolol succinate 100 mg 100 mg PO DAILY #90 tab 01/10/21 02/12/22 Rx tablet,extended release 24 hr lovastatin 20 mg tablet 20 mg PO DAILY #90 tab-cap 01/12/21 02/12/22 Rx nystatin 100,000 unit/gram topical 1 applic TOPICAL BID #30 g 02/03/21 02/12/22 Rx cream apixaban 5 mg tablet (Eliquis) 5 mg PO BID #180 tab 04/11/21 02/12/22 Rx furosemide 20 mg tablet 20 mg PO DAILY 06/01/21 02/12/22 History tamsulosin 0.4 mg capsule (Flomax) 0.4 mg PO DAILY #10 cap 06/01/21 02/12/22 Rx triamcinolone acetonide 0.1 % 1 applic TOPICAL DAILY 06/01/21 02/12/22 History topical ointment diltiazem HCl 300 mg capsule,24 300 mg PO DAILY 01/18/22 02/12/22 History hr,extended release (Tiadylt ER) insulin glargine 100 unit/mL 10 unit SUBCUT QPM 01/18/22 02/12/22 History subcutaneous solution (Lantus U-100 Insulin) semaglutide 7 mg tablet 7 mg PO DAILY 01/18/22 02/12/22 History metformin 1,000 mg tablet 1,000 mg PO BID 04/19/22 05/09/22 History phenazopyridine 200 mg tablet 200 mg PO TID PRN #20 tab 01/23/22 02/12/22 Rx (Pyridium) fluconazole 200 mg tablet 200 mg PO DAILY #14 tab 01/26/22 02/12/22 Rx (Diflucan) Exam Const General: cooperative and comfortable Neck Neck: supple Resp Effort & Inspection: normal respiratory effort Auscultation: clear to auscultation bilaterally Cardio Rate: regular rate Rhythm: regular rhythm GI Palpation: soft and no masses Neuro General: patient alert, patient awake and patient oriented x3 Extrem General: edema (lower extremities)
[2022-02-12] MEDS: Lactated Ringers 1,000 ML 80 ML IV (07:18)
[2022-02-12] MEDS: Fluconazole 100 MG TAB 200 MG PO (07:32)
[2022-02-12] MEDS: ceFAZolin 2 GM/50 ML BAG IVPB (07:43)
[2022-02-12] MEDS: Omnipaque 300 MG/ML 50 ML BTL (08:13)
[2022-02-12] MEDS: Lidocaine 2% Jelly 6 ML SYR (08:13)
--- NOTE | 2022-02-12 08:40 | DI.RAD_ITS ---
Exam(s) XR RETROGRADE IN OR EXAM: XR RETROGRADE IN OR CLINICAL HISTORY: kydney stones. TECHNIQUE: Fluoroscopy was provided for the referring physician for guidance with performing retrogr mike procedure. COMPARISON: No exams were available for comparison FINDINGS: Please see procedure note for details. Fluoro time: 25.9 seconds RADIATION DOSE DELIVERED: linda Ventura= 7.86 mGy
--- NOTE | 2022-02-12 08:41 | W.PM.DSUDISC ---
Discharge Plan Disposition Patient Disposition: HOME Condition: Stable Discharge Details Reason For Visit: left kidney stone Attending Provider: Tamir Osuna Primary Care Provider: Constantine Hill Home Meds and New Rx's Prescriptions: New fluconazole [Diflucan] 200 mg tablet 200 mg PO DAILY Qty: 5 0RF Discontinued phenazopyridine [Pyridium] 200 mg tablet 200 mg PO TID PRN (Reason: pain) Qty: 20 0RF fluconazole [Diflucan] 200 mg tablet 200 mg PO DAILY Qty: 14 0RF No Action finasteride 5 mg tablet 5 mg PO DAILY Qty: 90 3RF lisinopril 5 mg tablet 5 mg PO DAILY Qty: 90 3RF metoprolol succinate 100 mg tablet extended release 24 hr 100 mg PO DAILY Qty: 90 3RF nystatin 100,000 unit/gram cream 1 applic topical BID Qty: 30 2RF metformin 1,000 mg tablet 1,000 mg PO BID 0RF multivitamin [Daily Vitamin] 1 EACH tablet 2 ea PO DAILY 0RF cyanocobalamin (vitamin B-12) [Vitamin B-12] 500 MCG tablet 500 mcg PO DAILY 0RF Label Comments: T REPORTS HE NO LONGER TAKES calcium carbonate-vitamin D3 [Calcium 600 + D(3)] 1 EACH tablet 2 ea PO DAILY 0RF Label Comments: PT REPORTS HE NO LONGER TAKES iron 159 mg (45 mg iron) tablet extended release 159 mg PO DAILY 0RF Label Comments: 07/28/19 65 mg daily. si Rx Instructions: NOT SURE OF DOSE Farxiga 10 mg tablet 10 mg PO DAILY Qty: 90 3RF Label Comments: PT REPORTS HE NO LONGER TAKES lovastatin 20 mg tablet 20 mg PO DAILY Qty: 90 3RF Eliquis 5 mg tablet 5 mg PO BID Qty: 180 0RF diltiazem HCl [Tiadylt ER] 300 mg capsule,extended release 24 hr 300 mg PO DAILY 0RF semaglutide 7 mg tablet 7 mg PO DAILY 0RF Lantus U-100 Insulin 100 unit/mL solution 10 unit subcut QPM 0RF triamcinolone acetonide 0.1 % ointment 1 applic TOPICAL DAILY 0RF Label Comments: APPLY TOPICALLY DIRECTED TO THE SKIN OF THE LOWER LEGS EVERY NIGHT. Pt reports not using this cREAM. furosemide 20 mg tablet 20 mg PO DAILY 0RF Label Comments: Take 1 tablet by mouth every morning Dr. Cuellar- Cardiology tamsulosin [Flomax] 0.4 mg capsule 0.4 mg PO DAILY Qty: 10 0RF Label Comments: PT REPORTS HE DOESNT USE THIS MED. Vitamin C 1,000 MG tablet extended release 1,000 mg PO DAILY 0RF Label Comments: PT REPORTSHE NO LINGER TAKES omega-3 fatty acids [Fish Oil Concentrate] 1,000 mg Capsule 2,400 mg PO DAILY 0RF Discharge Instructions Additional Instructions: resume all home medications (even blood thinners) followup 6 to 8 weeks with renal US no need to strain urine new script for Diflucan sent to pharmacy (5 day course) Activity:: Activity as Tolerated Shower/Bathe:: 24 hours Diet:: As Tolerated Discharge Orders Discharge Orders: Discharge Order (Routine); Ordered 02/12/22 Ordered By: Tamir Osuna DS: Diagnosis Discharge Diagnosis (1) Recurrent nephrolithiasis: Status: Acute
--- NOTE | 2022-02-12 08:47 | W.PM.OP ---
Date of service: 02/12/22 Time of Service: 08:47 Operative Note Operative Note DATE OF PROCEDURE: 02/12/22 PRE-OP DIAGNOSIS: Left renal stone Left ureteral stone PROCEDURE: cystoscopy, remove left ureteral stent, left retrograde pyelogram, left flexible ureteroscopy, holmium laser lithotripsy of left ureteral stone, stone extraction SURGEON: Tamir Osuna ANESTHESIA TYPE: General LMA/ETT Refer to Anesthesia Record ESTIMATED BLOOD LOSS: 5 PATHOLOGY: other (stone for chemical analysis) COMPLICATIONS: None Patient was transported to: PACU Patient's condition: stable Implants: none Indications: This is a 71-year-old man who initially presented with a left ureteral stone. I placed a ureteral stent and bumped the stone back up into the left kidney. I did ureteroscopy but was unable to retrieve the entire stone at the initial procedure. At the time of his initial presentation, he had uncontrolled atrial fibrillation and diabetes that was out of control. Until these issues became better controlled, he was not felt to be a surgical candidate at our facility. He was then referred to the providers at [facility]. He underwent a stent change but never had the completion of his ureteroscopy. In the meantime, his diabetes has been under better control and he has been cleared by our cardiology service. He presents now for ureteroscopy. Findings: Left ureteral stone Procedure Description: The patient was brought to the operating room on 02/12/2022. He was given a dose of preoperative IV antibiotics. He was also given a dose of oral Diflucan. After successful induction of general anesthesia, he was placed in the dorsal lithotomy position. His genitalia was prepped and draped. 2% Xylocaine jelly was instilled into the urethra to act as a local anesthetic. The 22 [employer] [place] rigid cystoscope was passed through the urethra into the bladder. Urethra and bladder were inspected with a 30 degree lens. The pendulous, bulbar and membranous urethra appeared normal with no strictures. The prostatic urethra showed some lateral lobe enlargement but no significant median lobe. A stent could be seen protruding from the left ureteral orifice. The stent was grasped and alligator forceps and brought out to the level of the urethral meatus. A Glidewire was advanced through the lumen of the stent and the stent was removed. A ureteral access catheter was advanced over the wire and the wire was removed. A retrograde pyelogram was then performed and the calyces were outlined. The Glidewire was reintroduced and the access catheter was removed. A dual-lumen catheter was then advanced over the wire and a second wire was positioned. We chose one of the wires as a working wire and the other as a safety wire. The ureteral access catheter was then advanced over the working wire leaving the safety wire in place. The flexible ureteroscope was passed through the ureteral access sheath and the proximal ureter and calyces were each inspected. There was a very small stone particle in one of the lower pole calyces. The stone was treated with a 272 holmium laser fiber. We used a dusting setting of a power of 200 and a rate of 8. We then withdrew the access sheath and flexible ureteroscope down the remainder of the ureter. In the distal ureter, a large stone was identified. The stone was fragmented using the holmium laser fiber with a power setting of 800 and a rate of 8. The stone was then grasped in a 0 tip stone basket and removed. The stone was sent to pathology for chemical analysis. The patient tolerated this procedure well with no complications. He was sent to the recovery room in stable condition.
--- NOTE | 2022-02-12 09:15 | W.ANESPOSTOP ---
Postoperative Evaluation Date, Time and Location Date Performed: 02/12/22 Time Performed: 09:15 Patient Location: PACU Vital Signs Most Recent Imported Vital Signs: Most Recent Vital Signs Temp Pulse Resp BP Pulse Ox 36 C L 72 19 118/53 L 97 02/12/22 09:08 02/12/22 09:08 02/12/22 09:08 02/12/22 09:08 02/12/22 09:08 Pain Score Most Recent Pain Score: Most Recent Pain Score Pain Level 0 02/12/22 09:08 Assessment Mental Status: Awake (Alert & Oriented to Patient Baseline) Airway and Respiratory Function: Patent airway with normal (patient baseline) respiratory exam Cardiovascular Function: Hemodynamically Stable Hydration Status: Adequately Hydrated Nausea & Vomiting: No Nausea or Vomiting Pain: Pain is tolerable per patient Peripheral Nerve Block: Patient did not receive a nerve block
[2022-02-12] MEDS: Phenazopyridine 200 MG TAB PO (09:35)
[2022-02-16 13:01] LABS: Source: Left Kidney
== END 2022-02-12 10:30 | disposition home or self-care (01) ==
LOC: SUR 11:08
PROVIDERS: PCP Internal Medicine; Visit Provider Urology
PROC: (CPT 52353; principal; 2022-02-12 07:30)
DX: N20.0 Calculus of kidney (principal); I10 Essential (primary) hypertension; E11.9 Type 2 diabetes mellitus without complications; G47.33 Obstructive sleep apnea (adult) (pediatric); I48.91 Unspecified atrial fibrillation
CPT/HCPCS: 52353; 74420; 82365; J0690; J1100; J2405; J2704; Q9967

== ENCOUNTER → 2022-02-26 09:59 | Outpatient (BNVA) | payer MEDICARE, SELFPAY | PROVIDERS: PCP Internal Medicine; Referring Provider Internal Medicine; Visit Provider Nurse Practitioner Gerontology | DX: R32 Unspecified urinary incontinence (principal); R30.0 Dysuria | CPT/HCPCS: 51798; 81003; 99214 ==

== ENCOUNTER 2022-02-26 10:51 | Outpatient (REF) | payer MEDICARE, SELFPAY | END 2022-02-26 10:52 | disposition home or self-care (01) | LOC: LBN 10:51 | PROVIDERS: PCP Internal Medicine; Visit Provider Nurse Practitioner Gerontology | DX: R30.0 Dysuria (principal); R39.89 Other symptoms and signs involving the genitourinary system | CPT/HCPCS: 87086 ==

== ENCOUNTER 2022-03-08 12:14 | Outpatient (REF) | payer MEDICARE, SELFPAY | END 2022-03-08 12:15 | disposition home or self-care (01) | LOC: LBN 12:14 | PROVIDERS: PCP Internal Medicine | DX: N20.0 Calculus of kidney (principal) | CPT/HCPCS: 87086 ==

== ENCOUNTER 2022-04-04 15:24 | Outpatient (REF) | payer MEDICARE, SELFPAY | END 2022-04-04 15:25 | disposition home or self-care (01) | LOC: NCHCN 15:24 | PROVIDERS: PCP Internal Medicine; Visit Provider Family Medicine | DX: R32 Unspecified urinary incontinence (principal) | CPT/HCPCS: 87086 ==

== ENCOUNTER → 2022-04-10 09:53 | Outpatient (BNVA) | payer MEDICARE, SELFPAY | PROVIDERS: PCP Internal Medicine; Referring Provider Internal Medicine; Visit Provider Nurse Practitioner Gerontology | DX: R30.0 Dysuria (principal) | CPT/HCPCS: 51798; 81003; 99214 ==

== ENCOUNTER 2022-04-10 11:29 | Outpatient (REF) | payer MEDICARE, SELFPAY | END 2022-04-10 11:30 | disposition home or self-care (01) | LOC: LBN 11:29 | PROVIDERS: PCP Internal Medicine; Visit Provider Nurse Practitioner Gerontology | DX: N39.0 Urinary tract infection, site not specified (principal) | CPT/HCPCS: 87086 ==

== ENCOUNTER → 2022-04-16 02:04 | Outpatient (CLI) | payer MEDICARE, SELFPAY | PROVIDERS: PCP Internal Medicine; Visit Provider Urology ==

== ENCOUNTER 2022-04-16 16:01 | Outpatient (REF) | payer MEDICARE, SELFPAY ==
[2022-04-16 16:38] LABS: Bilirubin Negative (Negative); Blood Moderate (Negative); Clarity Sl Cloudy (Clear); Glucose Negative (Negative); Ketones Negative (Negative); Leukocyte Esterase Moderate (Negative); Nitrite Negative (Negative); Specific Gravity 1.015 (1.005-1.025); Urobilinogen 0.2 EU/dL (Up TO 0.2); pH 5.5 (5-8)
[2022-04-16 16:48] LABS: Bacteria Rare HPF (Negative); C & S Indicated? C&S Done As Ordered; Crystals Negative HPF (Negative); Epithelial Cells Rare HPF (Negative); Mucus Negative (Negative); WBC >50 HPF (0-5)
== END 2022-04-16 16:02 | disposition home or self-care (01) ==
LOC: LBN 16:01
PROVIDERS: PCP Internal Medicine; Referring Provider Family Medicine; Visit Provider Urology
DX: R39.89 Other symptoms and signs involving the genitourinary system (principal)
CPT/HCPCS: 81003; 81015; 87086

== ENCOUNTER → 2022-07-20 09:46 | Outpatient (BNVA) | payer MEDICARE, SELFPAY | PROVIDERS: PCP Internal Medicine; Referring Provider Internal Medicine; Visit Provider Internal Medicine Cardiovascular Disease | DX: I48.91 Unspecified atrial fibrillation (principal); I10 Essential (primary) hypertension | CPT/HCPCS: 99214 ==

== ENCOUNTER 2022-08-31 07:14 | Emergency (ER) | payer MEDICARE, SELFPAY ==
[2022-08-31 07:42] VITALS: BP 156/94; PULSE 129; RESP 20; TEMP 36.8; O2SAT 98
[2022-08-31 07:47] LABS: Bilirubin Negative (Negative); Blood Moderate (Negative); Clarity Cloudy (Clear); Glucose 250 mg/dL (Negative); Ketones Negative (Negative); Leukocyte Esterase Large (Negative); Nitrite Negative (Negative); Urobilinogen 0.2 EU/dL (Up TO 0.2); pH 5.5 (5-8)
[2022-08-31 07:54] LABS: Bacteria Rare HPF (Negative); Crystals Negative HPF (Negative); Epithelial Cells Rare HPF (Negative); Mucus Negative (Negative); RBC Negative HPF (0-2); WBC >50 HPF (0-5)
[2022-08-31 07:55] LABS: C & S Indicated? Yes; Casts 0-2 Hyaline LPF (Negative)
--- NOTE | 2022-08-31 08:01 | W.ED.GENAD ---
Discharge Plan Disposition Patient Disposition: Home Discharge Details Clinical Impression: Dehydration Primary Care Provider: [facility] Provider: Clifton Michael Home Meds and New Rx's Prescriptions: No Action finasteride 5 mg tablet 5 mg PO DAILY Qty: 90 3RF lisinopril 5 mg tablet 5 mg PO DAILY Qty: 90 3RF phenazopyridine [Pyridium] 200 mg tablet 200 mg PO TID PRN (Reason: pain) Qty: 20 0RF Eliquis 5 mg tablet 5 mg PO BID Qty: 180 3RF metoprolol succinate 100 mg tablet extended release 24 hr 100 mg PO DAILY Qty: 90 3RF nystatin 100,000 unit/gram cream 1 applic topical BID Qty: 30 2RF metformin 1,000 mg tablet 1,000 mg PO BID multivitamin [Daily Vitamin] 1 EACH tablet 2 ea PO DAILY cyanocobalamin (vitamin B-12) [Vitamin B-12] 500 MCG tablet 500 mcg PO DAILY Label Comments: T REPORTS HE NO LONGER TAKES calcium carbonate-vitamin D3 [Calcium 600 + D(3)] 1 EACH tablet 2 ea PO DAILY Label Comments: PT REPORTS HE NO LONGER TAKES iron 159 mg (45 mg iron) tablet extended release 159 mg PO DAILY Label Comments: 07/28/19 65 mg daily. si Rx Instructions: NOT SURE OF DOSE Farxiga 10 mg tablet 10 mg PO DAILY Qty: 90 3RF Label Comments: PT REPORTS HE NO LONGER TAKES lovastatin 20 mg tablet 20 mg PO DAILY Qty: 90 3RF diltiazem HCl [Tiadylt ER] 300 mg capsule,extended release 24 hr 300 mg PO DAILY semaglutide 7 mg tablet 7 mg PO DAILY insulin glargine [Lantus U-100 Insulin] 100 unit/mL solution 10 unit subcut QPM triamcinolone acetonide 0.1 % ointment 1 applic TOPICAL DAILY Label Comments: APPLY TOPICALLY DIRECTED TO THE SKIN OF THE LOWER LEGS EVERY NIGHT. Pt reports not using this cREAM. furosemide 20 mg tablet 20 mg PO DAILY Label Comments: Take 1 tablet by mouth every morning Dr. Cuellar- [place] tamsulosin [Flomax] 0.4 mg capsule 0.4 mg PO DAILY Qty: 10 0RF Label Comments: PT REPORTS HE DOESNT USE THIS MED. Vitamin C 1,000 MG tablet extended release 1,000 mg PO DAILY Label Comments: PT REPORTSHE NO LINGER TAKES omega-3 fatty acids [Fish Oil Concentrate] 1,000 mg Capsule 2,400 mg PO DAILY Discharge Instructions Additional Instructions: It is very important that you hydrate yourself better. Please follow-up with your primary care doctor on Saturday for some repeat blood work to make sure that your dehydration is not getting worse. your urine is not infected. You do not have a urinary tract infection, the urine is the same as when you last saw your urologist. Medical Decision Making 71-year-old man with a long standing history of dysuria. Abnormal UA but same as during his last urology visit. Chemistries and CBC within normal limits except for mild elevation of his creatinine. In reviewing his previous creatinines he has had creatinines in the 2.4-2.6. He was given IV fluids here in the emergency department. He was instructed to follow-up with his PCP on Saturday and to keep himself well-hydrated over the weekend. He has chronic atrial fibrillation. Review of his cardiology notes reveals that he is always mildly tachycardic. That his heart rates were in the 120s and 104, without any symptomatology. Sign Out No HPI General Date/Time Provider Initiated Documentation: 08/31/22 08:01. HPI Narrative: 72-year-old gentleman presented to the emergency department with a chief complaint of painful urination. He states that this has been going on for many months now. He states that it lake when he urinates. He is incontinent at night. He has been seen by his urologist for the same problem. The only change in the emergency department today some mild confusion. Patient denies any nausea vomiting. Denies any fevers or chills. No abdominal pain. No flank pain. Related Data Home Medications Medication Instructions Recorded Confirmed calcium carbonate 600 mg-vitamin 2 ea PO DAILY 03/29/14 08/31/22 D3 10 mcg (400 unit) tablet (Calcium 600 + D(3)) cyanocobalamin (vitamin B-12) 500 500 mcg PO DAILY 03/29/14 08/31/22 mcg tablet (Vitamin B-12) multivitamin (Daily Vitamin tablet) 2 ea PO DAILY 03/29/14 08/31/22 ascorbic acid (vitamin C) 1,000 mg 1,000 mg PO DAILY 01/03/18 08/31/22 tablet,extended release (Vitamin C ER) omega-3 fatty acids 1,000 mg 2,400 mg PO DAILY 10/20/18 08/31/22 capsule (Fish Oil Concentrate) ferrous sulfate, dried 159 mg (45 159 mg PO DAILY 07/28/19 08/31/22 mg iron) tablet,extended release (iron ER) finasteride 5 mg tablet 5 mg PO DAILY #90 tabs 04/27/20 08/31/22 lisinopril 5 mg tablet 5 mg PO DAILY #90 tab-caps 04/27/20 08/31/22 dapagliflozin 10 mg tablet 10 mg PO DAILY #90 tabs 11/11/20 08/31/22 (Farxiga) metoprolol succinate 100 mg 100 mg PO DAILY #90 tabs 01/10/21 08/31/22 tablet,extended release 24 hr lovastatin 20 mg tablet 20 mg PO DAILY #90 tab-caps 01/12/21 08/31/22 nystatin 100,000 unit/gram topical 1 applic topical BID inguinal rash 02/03/21 08/31/22 cream #30 grams furosemide 20 mg tablet 20 mg PO DAILY 06/01/21 08/31/22 tamsulosin 0.4 mg capsule (Flomax) 0.4 mg PO DAILY #10 caps 06/01/21 08/31/22 triamcinolone acetonide 0.1 % 1 applic topical DAILY 06/01/21 08/31/22 topical ointment diltiazem HCl 300 mg capsule,24 300 mg PO DAILY 01/18/22 08/31/22 hr,extended release (Tiadylt ER) insulin glargine 100 unit/mL 10 unit subcut QPM 01/18/22 08/31/22 subcutaneous solution (Lantus U-100 Insulin) semaglutide 7 mg tablet 7 mg PO DAILY 01/18/22 08/31/22 metformin 1,000 mg tablet 1,000 mg PO BID 01/23/22 08/31/22 phenazopyridine 200 mg tablet 200 mg PO TID PRN pain #20 tabs 02/26/22 08/31/22 (Pyridium) apixaban 5 mg tablet (Eliquis) 5 mg PO BID #180 tabs 07/20/22 08/31/22 Previous Rx's Medication Instructions Recorded finasteride 5 mg tablet 5 mg PO DAILY #90 tabs 04/27/20 lisinopril 5 mg tablet 5 mg PO DAILY #90 tab-caps 04/27/20 dapagliflozin 10 mg tablet 10 mg PO DAILY #90 tabs 11/11/20 (Farxiga) metoprolol succinate 100 mg 100 mg PO DAILY #90 tabs 01/10/21 tablet,extended release 24 hr lovastatin 20 mg tablet 20 mg PO DAILY #90 tab-caps 01/12/21 nystatin 100,000 unit/gram topical 1 applic topical BID inguinal rash 02/03/21 cream #30 grams tamsulosin 0.4 mg capsule (Flomax) 0.4 mg PO DAILY #10 caps 06/01/21 phenazopyridine 200 mg tablet 200 mg PO TID PRN pain #20 tabs 02/26/22 (Pyridium) apixaban 5 mg tablet (Eliquis) 5 mg PO BID #180 tabs 07/20/22 Allergies Allergy/AdvReac Type Severity Reaction Status Date / Time No Known Allergies Allergy Verified 08/31/22 07:49 General Stated Complaint: Urinary TREVOR: 3 Review of Systems Narrative: Review of systems Constitutional is been negative for fever chills, negative for malaise, negative for fatigue. Eyes: No visual changes, no tearing ENT: No sore throat, no pain in the ears, no hearing change, no rhinorrhea Cardiovascular no chest pain, no shortness of breath with exertion, no palpitations, no lightheadedness Respiratory: No shortness of breath, no cough, GI: No abdominal pain, no diarrhea, no nausea, no vomiting, no dark stools : see hpi MSK: No myalgias, no arthralgias Skin: No rash Neurological: No headaches, no focal weakness, no paresthesias, no dizziness Psych: No anxiety, no depression Endo: No weight gain no weight loss Hematology/lymph: No painful nodes, no easy bleeding, not on blood thinners, not believe that he has held his Eliquis prescription that was prescribed by his improvement spec last month [facility] All Active Problems (Updated 08/31/22 @ 10:48 by Clifton Michael MD) Dehydration (Acute) Obstructive sleep apnea syndrome (Chronic 08/10/08) cpap Dysplastic colon polyp (Acute) Urothelial carcinoma (Acute) 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 denies this Atopic conjunctivitis (10/22/13) Atrial fibrillation Benign prostatic hyperplasia (02/25/13) Bladder cancer Carpal tunnel syndrome Chronic anticoagulation Chronic venous stasis Creatinine elevation Depressive disorder (02/25/13) Diabetes mellitus (02/25/13) Diabetic leg ulcer Elevated WBCs Essential hypertension (06/24/13) Frequency of micturition (01/03/16) Glaucoma (10/22/13) B/L Gross hematuria Hyperglycemia Hyperlipidemia (02/25/13) Hypermetropia (10/22/13) Hypogonadism Idiopathic peripheral neuropathy Low back pain (08/10/08) Noncompliance Nuclear senile cataract (10/22/13) Obesity (08/10/08) Aviva-en-y 02/2014 Olecranon bursitis Osteoarthritis (08/10/08) BILATERAL KNEE replacements Peptic reflux disease (08/10/08) Peripheral neuralgia Phimosis Presbyopia (10/22/13) Pterygium (08/10/08) LEFT EYE Regular astigmatism (10/22/13) Sensorineural hearing loss, bilateral (09/05/17) Tubular adenoma Tubular and tubulovillous adenoma 2011 --suggested repeat 2017 Ulcer of hermosillo limited to breakdown of skin Umbilical hernia (08/18/12) Ureterolithiasis Urgency of urination (01/03/16) Urinary tract infection UTI (urinary tract infection) Varicose veins of lower extremity (08/10/08) Venous insufficiency (chronic) (peripheral) Surgical History History of transurethral destruction of bladder lesion Hx of total knee arthroplasty Pt reports he has had a left and right knee repacement. Pt doesnt remember when and thinks he had it done at [facility] [place] Fundoplication Repair of umbilical hernia Laparoscopic Aviva-en-y surgery for weight loss S/P cholecystectomy (~01/04/21) acute hemorrhagic cholecystitis and xanthogranulomatous inflammation S/P colonoscopy Haddad-2011- tubular and tubulovillous polyps 2019- sessile serrated with low grade dysplacia, tubullovillous with high grade dysplacia and tubular adenomas S/P partial colectomy (~05/09/20) Status post abdominoplasty (05/23/16) Status post cholecystectomy Status post tonsillectomy Status post total knee replacement B/L Vasectomy Family History Mother Cancer Father Heart disease Sister Cancer Sister No problems noted. Brother No problems noted. Brother No problems noted. Brother No problems noted. Son No problems noted. Son No problems noted. Son No problems noted. Social History Smoking/Tobacco Use Status: Never Second Hand Exposure: Yes Smoking risk assessment performed?: Yes Alcohol Intake: never Drug use: Never Substance use type: does not use Caregiver/Support person: No Household members: other Details: son Housing: apartment Communication Needs: None Do you need help understanding health information?: Never Pets and animals: No Do you think of yourself as: straight/heterosexual Current gender identity: male What is your relationship status?: How often do you talk on the phone with friends or family?: once per week How often do you get together with friends or relatives?: decline to answer How often do you attend restorationist or baptist services?: decline to answer Do you belong to any clubs or organized social groups?: no Panel score (0-1 are the most socially isolated patients): 0 What type of physical activity do you participate in: walking Duration: 15-30 minutes/day Frequency: 1-2 times per week Velia/Mandaen: [employer] Special velia needs: No Seatbelt use: always Helmet use: No Drive intox or ride w/intox wrecker driver: No Do you feel safe at home: Yes Do you feel safe in your relationship?: Yes Exam Narrative Exam Narrative: General: A,A Ox3, Calm, no apparent distress, well developed, pleasant and cooperative Head Size/Shape: normocephalic, atraumatic Eyes Pupils: PERRLA Extraocular Mobility: intact and symmetrical Conjunctiva: non-injected, anicteric, no discharge Ears, Nose, Throat Nares: patent bilaterally Oral Cavity: moist Neck: supple Respiratory Respiratory Effort: no dyspnea Auscultation: clear to auscultation bilaterally, normal breath sounds, no wheezing, no rales/crackles Cardiovascular Heart Auscultation: irreg irreg, tachycardicnormal S1, normal S2, no murmurs, no rubs, no gallops, Pulse Quality: +2 equal bilaterally, location(s) radial Abdomen Inspection and Palpation: soft, non-tender, non-distended, no hepatosplenomegaly Musculoskeletal System Joints, Bones, and Muscles: no deformities Extremities: warm and well-perfused, no cyanosis, capillary refill <2 seconds Skin Skin Inspection: no rash, no lesions, no bruising Neurological Motor: normal tone, normal strength, moving all extremities equally Reflexes: deep tendon reflexes 2+ bilaterally, no clonus Psychiatric: good insight, good judgement, normal mood and affect Course Vital Signs Vital signs: Vital Signs Temperature 36.8 C 08/31/22 07:42 Pulse 129 H 08/31/22 07:42 Respiratory Rate 20 08/31/22 07:42 Blood Pressure 156/94 H 08/31/22 07:42 Pulse Oximetry 98 08/31/22 07:42 Temperature 36.8 C 08/31/22 07:42 Temperature Source Temporal Artery Scan 08/31/22 07:42 Pulse 129 H 08/31/22 07:42 Respiratory Rate 20 08/31/22 07:42 Respiratory Effort Non-Labored 08/31/22 07:46 Blood Pressure 156/94 H 08/31/22 07:42 Blood Pressure Position Sitting 08/31/22 07:42 Pulse Oximetry 98 08/31/22 07:42 Oxygen Delivery Method Room Air 08/31/22 07:42 Oxygen Flow Rate 0 08/31/22 07:42 Pain Level 10 08/31/22 07:42 Lab/Test Results Lab/Test Results: 08/31/22 07:38 Urine - Reflex from Ua Urine Culture - Pending Laboratory Tests Range/Units 08/31/22 07:38 Urine Color (Yellow) Yellow Urine Clarity (Clear) Cloudy Urine pH (5-8) 5.5 Ur Specific Calvin (1.005-1.025) 1.020 Urine Protein (Negative) mg/dL 30 H Urine Ketones (Negative) mg/dL Negative Urine Blood (Negative) Moderate H Urine Nitrite (Negative) Negative Urine Bilirubin (Negative) Negative Urine Urobilinogen (Up TO 0.2) EU/dL 0.2 Ur Leukocyte Esterase (Negative) Large H Urine RBC (0-2) HPF Negative Urine WBC (0-5) HPF >50 H Ur Epithelial Cells (Negative) HPF Rare Urine Crystals (Negative) HPF Negative Urine Bacteria (Negative) HPF Rare Urine Casts (Negative) LPF 0-2 Hyaline Urine Mucus (Negative) Negative Ur Culture Indicated? Yes Urine Glucose (Negative) mg/dL 250 H
[2022-08-31 08:30] LABS: Abs Immature Grans 0.04 10^3/uL (0.0-0.06); Absolute Basophil Count 0.02 10^3/uL (0.0-0.2); Absolute Eosinophil Count 0.26 10^3/uL (0.0-0.7); Absolute Lymphocyte Count 0.92 10^3/uL (1.2-3.4); Absolute Monocyte Count 0.69 10^3/uL (0.1-0.8); Absolute Neutrophil Count 5.26 10^3/uL (1.2-6.7); Basophils % 0.3; Eosinophils % 3.6; HCT 31.4 % (40.0-50.0); HGB 10.1 g/dL (13.5-17.5); Immature Grans % 0.6; Lymphocytes % 12.8; MCH 26.6 pg (27.0-33.0); MCHC 32.2 % (32.0-36.0); MCV 83 fL (80-95); MPV 8.8 fL (8.0-11.0); Monocytes % 9.6; Neutrophils % 73.1; Platelet Count 261 10^3/uL (130-400); RBC 3.79 10^6/uL (4.36-5.78); RDW 15.2 % (11.8-14.1); RDW-SD 46.1 fL; WBC 7.19 10^3/uL (4.4-10.8)
[2022-08-31 08:50] LABS: BUN 49 mg/dL (7-18); CREATININE 2.8 mg/dL (0.70-1.30); Calcium 8.5 mg/dL (8.5-10.1); Chloride 99 mmol/L (98-107); Estimated GFR 23.24 (mL/min/1.73m2); Glucose 317 mg/dL (74-106); Potassium 4.2 mmol/L (3.5-5.1); Sodium 131 mmol/L (136-145)
[2022-08-31] MEDS: Normal Saline 1,000 ML 1000 ML IV (09:38)
[2022-08-31 10:54] VITALS: BP 142/106; PULSE 106; RESP 18; TEMP 36.5; O2SAT 98
--- NOTE | 2022-09-10 08:08 | NUR.NOTE ---
Nursing Note: Accessed patient chart to see if antibiotic was given for urine culture, possible UTI.
== END 2022-08-31 10:57 | disposition home or self-care (01) ==
PROVIDERS: Emergency Provider Emergency Medicine; PCP Internal Medicine
DX: E86.0 Dehydration (principal); R79.89 Other specified abnormal findings of blood chemistry; I48.91 Unspecified atrial fibrillation; J45.909 Unspecified asthma, uncomplicated; E11.9 Type 2 diabetes mellitus without complications; Z79.84 Long term (current) use of oral hypoglycemic drugs; Z79.4 Long term (current) use of insulin; Z79.01 Long term (current) use of anticoagulants
CPT/HCPCS: 36415; 80048; 96360; 99284; 81003; 81015; 85025; 87086

== ENCOUNTER 2022-09-04 13:29 | Outpatient (REF) | payer MEDICARE, SELFPAY ==
[2022-09-04 15:05] LABS: Anion Gap 13.6 mmol/L (3-11); BUN 41 mg/dL (7-18); CO2 18.4 mmol/L (21.0-32.0); CREATININE 2.5 mg/dL (0.70-1.30); Calcium 8.4 mg/dL (8.5-10.1); Chloride 100 mmol/L (98-107); Estimated GFR 26.63 (mL/min/1.73m2); Glucose 325 mg/dL (74-106); Potassium 3.9 mmol/L (3.5-5.1); Sodium 132 mmol/L (136-145)
== END 2022-09-04 13:30 | disposition home or self-care (01) ==
LOC: NCHCN 13:29
PROVIDERS: PCP Internal Medicine; Visit Provider Family Medicine
DX: R30.0 Dysuria (principal)
CPT/HCPCS: 80048; 87086

== ENCOUNTER 2022-10-18 11:56 | Outpatient (REF) | payer MEDICARE, SELFPAY ==
[2022-10-18 15:13] LABS: Abs Immature Grans 0.03 10^3/uL (0.0-0.06); Absolute Basophil Count 0.03 10^3/uL (0.0-0.2); Absolute Eosinophil Count 0.17 10^3/uL (0.0-0.7); Absolute Lymphocyte Count 1.13 10^3/uL (1.2-3.4); Absolute Monocyte Count 0.64 10^3/uL (0.1-0.8); Absolute Neutrophil Count 4.43 10^3/uL (1.2-6.7); Basophils % 0.5; Eosinophils % 2.6; HCT 32.6 % (40.0-50.0); Immature Grans % 0.5; Lymphocytes % 17.6; MCH 26.2 pg (27.0-33.0); MCHC 30.7 % (32.0-36.0); MCV 86 fL (80-95); MPV 9.1 fL (8.0-11.0); Neutrophils % 68.8; Platelet Count 306 10^3/uL (130-400); RBC 3.81 10^6/uL (4.36-5.78); RDW-SD 49.6 fL; WBC 6.43 10^3/uL (4.4-10.8)
[2022-10-18 15:35] LABS: Folate 9.5 ng/mL (8.6-20.0); Vitamin B12 419 pg/mL (193-986)
[2022-10-18 16:00] LABS: ALT 19 U/L (16-63); AST 15 U/L (15-37); Albumin 3.1 g/dL (3.4-5.0); Alkaline Phosphatase 104 U/L (46-116); Anion Gap 13.6 mmol/L (3-11); BUN 42 mg/dL (7-18); Bilirubin, Total 0.3 mg/dL (0.2-1.0); CO2 21.4 mmol/L (21.0-32.0); CREATININE 2.3 mg/dL (0.70-1.30); Calcium 8.4 mg/dL (8.5-10.1); Chloride 100 mmol/L (98-107); Estimated GFR 29.43 (mL/min/1.73m2); Glucose 229 mg/dL (74-106); Potassium 4.4 mmol/L (3.5-5.1); Sodium 135 mmol/L (136-145); TSH (W/Ref FT4) 5.42 uIU/mL (0.36-3.74); Total Protein 6.9 g/dL (6.4-8.2)
[2022-10-18 17:46] LABS: FREE T4 0.75 ng/dL (0.76-1.46)
== END 2022-10-18 11:57 | disposition home or self-care (01) ==
LOC: NCHCN 11:56
PROVIDERS: PCP Internal Medicine; Visit Provider Family Medicine
DX: E11.65 Type 2 diabetes mellitus with hyperglycemia (principal); F41.8 Other specified anxiety disorders; I10 Essential (primary) hypertension; I48.91 Unspecified atrial fibrillation; Z79.899 Other long term (current) drug therapy
CPT/HCPCS: 80053; 82607; 82746; 84439; 84443; 85025

== ENCOUNTER 2022-11-06 01:29 | Outpatient (CLI) | payer MEDICARE, SELFPAY ==
--- NOTE | 2022-11-06 12:57 | DI.CT_ITS ---
Exam(s) CT HEAD WO EXAM: CT HEAD WO CLINICAL HISTORY: MEMORY LOSS, R41.3. TECHNIQUE: Imaging Protocol: Axial computed tomography images with coronal and sagittal reformatted images were created and reviewed COMPARISON: No exams were available for comparison FINDINGS: Ventricles and Extra axial spaces: Normal in size and morphology for the patient's age. Hemorrhage: None. Cerebral parenchyma: There is no evidence of an acute territorial infarct. There are subtle areas of decreased attenuation in the white matter likely reflecting small vessel ischemic disease. Midline shift: None. Brainstem/Cerebellum: Normal. Calvarium: Normal. Visualized Paranasal sinuses/Mastoids: Clear. Soft Tissues: Unremarkable. IMPRESSION: No acute intracranial process. RADIATION DOSE DELIVERED: 760.74mGy.cm Total DLP DATA REPOSITORY: All CT scans at this facility are submitted to the National Radiology Data Registry (NRDR) Dose Index Registry (DIR) with the [employer] (ACR). RADIATION OPTIMIZATION: All CT scans at this facility use at least one of these dose optimization te chniques: automated exposure control; mA and/or kV adjustment per patient size (includes targeted exa ms where dose is matched to clinical indication); or iterative reconstruction.
== END 2022-11-06 01:49 ==
LOC: DI 01:29
PROVIDERS: PCP Internal Medicine; Visit Provider Family Medicine
DX: R41.3 Other amnesia (principal); I67.89 Other cerebrovascular disease
CPT/HCPCS: 70450

== ENCOUNTER 2022-12-03 07:57 | Emergency (ER) | payer MEDICARE, SELFPAY ==
[2022-12-03] VITALS (65 sets, daily range): BP systolic 103–212; BP diastolic 78–198; PULSE 87–155; RESP 14–36; TEMP 36.8–37.4; O2SAT 93–100
--- NOTE | 2022-12-03 08:00 | DI.CT_ITS ---
Exam(s) CT BRAIN NECK CTA EXAM: CT BRAIN NECK CTA CLINICAL HISTORY: Concern for large vessel occlusion. TECHNIQUE: Imaging Protocol: Axial CT angiography was performed with multi-slice acquisition and mu lti-planar and/or 3D reconstructions. CONTRAST MATERIAL: Intravenous: Omnipaque 350 contrast volume:85 mL COMPARISON: CT CT HEAD WO from 11/06/2022 FINDINGS: CT Head W/O and W: Ventricles and Extra axial spaces: Normal in size and morphology for the patient's age. Hemorrhage: None. Cerebral parenchyma: No evidence of an acute territorial infarct. 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 There are areas of decreased attenuation in the white matter consistent with s mall vessel ischemic disease. Midline shift: None. Brainstem/Cerebellum: Normal. Calvarium: Normal. Visualized Paranasal sinuses/Mastoids: Clear. Soft Tissues: Unremarkable. Enhancement: Unremarkable. CTA Neck W: Common Carotid: Right: No dissection, occlusion or significant stenosis. Left: No dissection, occlusion or significant stenosis. External Carotid: Right: No occlusion or significant stenosis. Left: No occlusion or significant stenosis. Internal Carotid: Right: No dissection, occlusion or significant stenosis. Mild atherosclerosis at the origin. Left: No dissection, occlusion or significant stenosis. Mild atherosclerosis at the origin. Vertebral Artery: Right: No dissection, occlusion or significant stenosis. Mild atherosclerosis at the origin. Left: No dissection, occlusion or significant stenosis. Lung Apices: Normal. Bones: Within normal limits for the patient's age. Soft Tissues: Normal. Thyroid gland: Unremarkable. CTA Brain W: Internal Carotid Arteries: Atherosclerosis. No aneurysm occlusion or significant stenosis. Anterior Cerebral Arteries: Right: No aneurysm, occlusion or significant stenosis. Left: No aneurysm, occlusion or significant stenosis. Middle Cerebral Arteries: Right: No aneurysm, occlusion or significant stenosis. Left: No aneurysm, occlusion or significant stenosis. Posterior Cerebral Arteries: Right: No aneurysm, occlusion or significant stenosis. Left: No aneurysm, occlusion or significant stenosis. Vertebral Arteries: Right: No aneurysm, occlusion or significant stenosis. Left: No aneurysm, occlusion or significant stenosis. Basilar Artery: No aneurysm, occlusion or significant stenosis. IMPRESSION: 1. No large vessel occlusion or significant stenosis on the CT angiography of the head. 2. No acute intracranial process. If there is concern for an acute infarct, an MRI of the brain shou ld be considered for further evaluation. 3. No occlusion or significant stenosis on the CT angiography of the neck. RADIATION DOSE DELIVERED: 1,295.4mGy.cm Total DLP DATA REPOSITORY: All CT scans at this facility are submitted to the National Radiology Data Registry (NRDR) Dose Index Registry (DIR) with the [employer] (ACR). RADIATION OPTIMIZATION: All CT scans at this facility use at least one of these dose optimization te chniques: automated exposure control; mA and/or kV adjustment per patient size (includes targeted exa ms where dose is matched to clinical indication); or iterative reconstruction.
--- NOTE | 2022-12-03 08:05 | DI.RAD_ITS ---
Exam(s) XR CHEST 1V IN DI DEPT EXAM: XR CHEST 1V IN DI DEPT CLINICAL HISTORY: Acute encephalopathy TECHNIQUE: 2D digital imaging was performed of the chest. One image was obtained. An AP view was ob tained. COMPARISON: CR XR PORTABLE CHEST AP from 06/08/2021 FINDINGS: MEDIASTINUM: Normal. HEART: Cardiomegaly. PULMONARY VASCULATURE: Normal. LUNGS: Clear. PLEURAL SPACE: No pleural effusion or pneumothorax. BONE:Within normal limits for the patient's age. Degenerative changes in the shoulders bilaterally. OTHER FINDINGS:Normal. IMPRESSION: 1. No acute pulmonary findings. 2. Cardiomegaly. DATA REPOSITORY: RADIATION DOSE DELIVERED:
--- NOTE | 2022-12-03 08:07 | W.ED.GENAD ---
Discharge Plan Discharge Details Chief Complaint: CVA/TIA Clinical Impression: Acute encephalopathy, Hypomagnesemia, Elevated brain natriuretic peptide (BNP) level, Normocytic anemia, Current use of terminologist anticoagulation, Acute cerebrovascular accident (CVA) Primary Care Provider: [facility] Provider: Adis Jacome [place] Meds and New Rx's Prescriptions: No Action finasteride 5 mg tablet 5 mg PO DAILY Qty: 90 3RF lisinopril 5 mg tablet 5 mg PO DAILY Qty: 90 3RF phenazopyridine [Pyridium] 200 mg tablet 200 mg PO TID PRN (Reason: pain) Qty: 20 0RF Patient Comments: Medication not on med list from PCP 12/03/22 CT Eliquis 5 mg tablet 5 mg PO BID Qty: 180 3RF metoprolol succinate 100 mg tablet extended release 24 hr 100 mg PO DAILY Qty: 90 3RF nystatin 100,000 unit/gram cream 1 applic topical BID Qty: 30 2RF Patient Comments: Medication not on med list from PCP 12/03/22 CT metformin 1,000 mg tablet 1,000 mg PO BID multivitamin [Daily Vitamin] 1 EACH tablet 2 ea PO DAILY Patient Comments: Medication not on med list from PCP 12/03/22 CT cyanocobalamin (vitamin B-12) [Vitamin B-12] 500 MCG tablet 500 mcg PO DAILY Patient Comments: T REPORTS HE NO LONGER TAKES calcium carbonate-vitamin D3 [Calcium 600 + D(3)] 1 EACH tablet 2 ea PO DAILY Patient Comments: PT REPORTS HE NO LONGER TAKES iron 159 mg (45 mg iron) tablet extended release 159 mg PO DAILY Patient Comments: 07/28/19 65 mg daily. si Rx Instructions: NOT SURE OF DOSE Farxiga 10 mg tablet 10 mg PO DAILY Qty: 90 3RF Patient Comments: PT REPORTS HE NO LONGER TAKES lovastatin 20 mg tablet 20 mg PO DAILY Qty: 90 3RF diltiazem HCl [Tiadylt ER] 300 mg capsule,extended release 24 hr 300 mg PO DAILY semaglutide 7 mg tablet 7 mg PO DAILY Patient Comments: Medication not on med list from PCP 12/03/22 CT insulin glargine [Lantus U-100 Insulin] 100 unit/mL solution 10 unit subcut QPM triamcinolone acetonide 0.1 % ointment 1 applic TOPICAL DAILY Patient Comments: APPLY TOPICALLY DIRECTED TO THE SKIN OF THE LOWER LEGS EVERY NIGHT. Pt reports not using this cREAM. furosemide 20 mg tablet 40 mg PO DAILY Patient Comments: Take 1 tablet by mouth every morning Dr. Cuellar- Cardiology tamsulosin [Flomax] 0.4 mg capsule 0.4 mg PO DAILY Qty: 10 0RF Patient Comments: PT REPORTS HE DOESNT USE THIS MED. Vitamin C 1,000 MG tablet extended release 1,000 mg PO DAILY Patient Comments: PT REPORTS HE NO LINGER TAKES omega-3 fatty acids [Fish Oil Concentrate] 1,000 mg Capsule 2,400 mg PO DAILY Patient Comments: Medication not on med list from PCP 12/03/22 CT levothyroxine 50 mcg tablet 50 mcg PO DAILY Patient Comments: Take 1 tablet by mouth once a day Take on an empty stomach 30 minutes before breakfast or other medications Medical Decision Making This is a normothermic and not tachycardic 71-year-old male anticoagulated on apixaban with profound bilateral weakness and aphasia for the past approximately 13 hours concerning for intracranial hemorrhage. He is outside the window for tPA furthermore is not anticoagulated. No reported fevers to suggest sepsis so we will defer lactate blood cultures and broad-spectrum antibiotics at this point in time. Patient does have a history of urothelial carcinoma and so certainly UTI is on the differential as are brain metastasis. He is not febrile to suggest hyperthyroidism nor is he hypotensive nor hypothermic to suggest hypothyroidism. No reported toxic ingestions however will ethanol, acetaminophen, and salicylate levels given limited information from paramedics. Will obtain ECG and troponin to suggest for myocardial injury. Will assess for any acute electrolyte abnormalities and given hyperglycemia will obtain a venous blood gas to assess for any acidemia to suggest DKA. No tonic-clonic activities to suggest need for EEG. Given tracking with his eyes I have low concern for nonconvulsive status. No nuchal rigidity to suggest meningitis and no fevers to suggest encephalitis and as result I do not feel that the patient requires a lumbar puncture. 8:15 AM I received a call from radiology as the patient's dry CT head had been completed. On my preliminary read there did appear to be bilateral hyperdensities in the putamen concerning for intracranial hemorrhage. Will await formal radiology interpretation however anticipate that patient would likely benefit from for 5 prothrombin complex concentrate given his use of apixaban. 8:28 AM Radiology reported that the patient's CT head was negative for any bleed. We will defer apixaban reversal and send patient back to the radiology department for a CTA head and neck. 9:04 AM I spoke to patient's son Rip who will come up to see him. 9:20 AM Patient's son Rip confirms full code. His number is: [phone]. Patient is not reportedly on home oxygen. His limited bedside echocardiogram was not consistent with acute CHF. Patient was more interactive and tracking across midline with his eyes. He was also able to follow commands with his bilateral upper extremities lifting against gravity and squeezing my hands. He was still completely mute. His CTA head and neck were negative for any acute abnormalities. Will obtain an MRI to assess for any acute ischemic stroke. We will also plan on hospitalizing the patient. His son is concerned about his mobility as there are stairs required to get into his residence. Son reports that this is never happened in the past. Son also reports that the patient had a normal day yesterday with no complaints of abdominal pain fevers or chills. Labs significant for persistent normocytic anemia but no thrombocytopenia nor leukocytosis. His venous blood gas lacks acidemia and lacks hypercarbia. His sodium and potassium are within normal limits. His bicarbonate is slightly low and he has a mild anion gap. He has CKD but no VERONICA. His BUN is elevated but slightly improved compared to prior. He is hyperglycemic with a glucose of 288 mg/dL. Given no acidemia I am not concerned for DKA. He is mildly hypomagnesemic for which he will receive IV repletion. His salicylates & acetaminophen levels are within normal limits. His ethanol is negative. His proBNP is markedly elevated at 7496 pg/mL. There is no prior for comparison. Patient's son is not certain as to whether or not he took his morning medications today. Son confirms full code. Nitrite negative UA not consistent with infection. 10:20 AM I received a call from the patient's PCP who reported that he was noncompliant with medications. He reportedly also has a history of dementia. Patient's oxygen saturation remained normal on room air. Given outpatient use of furosemide will treat with 20 mg IV once now based on lower extremity pitting edema. 10:30 AM Patient at MRI and with a persistently normal oxygen saturation on room air. 11 AM Patient does have 2 areas with restricted diffusion in the right cerebellum and in the left frontal parietal watershed area concerning for acute CVA per rads. Healthy clinical unit coordinator Irena reached out to nursing soakers supervisor to determine whether or not we would have beds in which to hospitalize the patient. Will allow permissive hypertension however the patient's systolic blood pressure was greater than 200 mmHg so will treated with home medications after he passes a nursing bedside swallow test. I ordered half doses of the patient's diltiazem and lisinopril and full dose of his metoprolol. He may be a candidate for clopidogrel however will defer this decision to the hospitalizing team in consultation with neurology. 1 PM I spoke with Dr. Benites from [facility]. He thinks that they may have a bed. I will reach out to neurology at [facility] as our neurologist is reportedly on vacation this week. 2:20 PM [address] spoke with [address] Flores from neurology at [facility] [place]. He agreed that the infarcts appear to be cardioembolic in nature. Given question of adherence with apixaban he is advised against clopidogrel and aspirin loading and advised to continue apixaban. Patient currently following commands with 5 out of 5 lower extremity strength bilaterally. He is alert now verbal and eating a sandwich. He has been accepted by Dr. Benites at [facility]. I updated the patient's son Rip concerning his transfer. HPI General Date/Time Provider Initiated Documentation: 12/03/22 08:01. HPI Narrative: This is a 71-year-old male with a history of urothelial carcinoma atrial fibrillation on apixaban arriving via EMS in the setting of acute encephalopathy. Patient was reportedly last seen normal last night at 9 PM. He was found by his son this morning at approximately 7:20 AM. He was reportedly not speaking and not answering questions. Fingerstick blood glucose was in the 300s. Paramedics reported that the patient was slumped to his side. Unable to obtain any additional history secondary to patient's acute encephalopathy. Related Data Home Medications Medication Instructions Recorded Confirmed calcium carbonate 600 mg-vitamin 2 ea PO DAILY 03/29/14 08/31/22 D3 10 mcg (400 unit) tablet (Calcium 600 + D(3)) cyanocobalamin (vitamin B-12) 500 500 mcg PO DAILY 03/29/14 08/31/22 mcg tablet (Vitamin B-12) multivitamin (Daily Vitamin tablet) 2 ea PO DAILY 03/29/14 08/31/22 ascorbic acid (vitamin C) 1,000 mg 1,000 mg PO DAILY 01/03/18 08/31/22 tablet,extended release (Vitamin C ER) omega-3 fatty acids 1,000 mg 2,400 mg PO DAILY 10/20/18 08/31/22 capsule (Fish Oil Concentrate) ferrous sulfate, dried 159 mg (45 159 mg PO DAILY 07/28/19 08/31/22 mg iron) tablet,extended release (iron ER) finasteride 5 mg tablet 5 mg PO DAILY #90 tabs 04/27/20 12/03/22 lisinopril 5 mg tablet 5 mg PO DAILY #90 tab-caps 04/27/20 12/03/22 dapagliflozin 10 mg tablet 10 mg PO DAILY #90 tabs 11/11/20 08/31/22 (Farxiga) metoprolol succinate 100 mg 100 mg PO DAILY #90 tabs 01/10/21 12/03/22 tablet,extended release 24 hr lovastatin 20 mg tablet 20 mg PO DAILY #90 tab-caps 01/12/21 12/03/22 nystatin 100,000 unit/gram topical 1 applic topical BID inguinal rash 02/03/21 08/31/22 cream #30 grams furosemide 20 mg tablet 40 mg PO DAILY 06/01/21 12/03/22 tamsulosin 0.4 mg capsule (Flomax) 0.4 mg PO DAILY #10 caps 06/01/21 08/31/22 triamcinolone acetonide 0.1 % 1 applic topical DAILY 06/01/21 12/03/22 topical ointment diltiazem HCl 300 mg capsule,24 300 mg PO DAILY 01/18/22 12/03/22 hr,extended release (Tiadylt ER) insulin glargine 100 unit/mL 10 unit subcut QPM 01/18/22 12/03/22 subcutaneous solution (Lantus U-100 Insulin) semaglutide 7 mg tablet 7 mg PO DAILY 01/18/22 08/31/22 metformin 1,000 mg tablet 1,000 mg PO BID 01/23/22 12/03/22 phenazopyridine 200 mg tablet 200 mg PO TID PRN pain #20 tabs 02/26/22 08/31/22 (Pyridium) apixaban 5 mg tablet (Eliquis) 5 mg PO BID #180 tabs 07/20/22 12/03/22 levothyroxine 50 mcg tablet 50 mcg PO DAILY 12/03/22 12/03/22 Previous Rx's Medication Instructions Recorded finasteride 5 mg tablet 5 mg PO DAILY #90 tabs 04/27/20 lisinopril 5 mg tablet 5 mg PO DAILY #90 tab-caps 04/27/20 dapagliflozin 10 mg tablet 10 mg PO DAILY #90 tabs 11/11/20 (Farxiga) metoprolol succinate 100 mg 100 mg PO DAILY #90 tabs 01/10/21 tablet,extended release 24 hr lovastatin 20 mg tablet 20 mg PO DAILY #90 tab-caps 01/12/21 nystatin 100,000 unit/gram topical 1 applic topical BID inguinal rash 02/03/21 cream #30 grams tamsulosin 0.4 mg capsule (Flomax) 0.4 mg PO DAILY #10 caps 06/01/21 phenazopyridine 200 mg tablet 200 mg PO TID PRN pain #20 tabs 02/26/22 (Pyridium) apixaban 5 mg tablet (Eliquis) 5 mg PO BID #180 tabs 07/20/22 Allergies Allergy/AdvReac Type Severity Reaction Status Date / Time No Known Allergies Allergy Verified 12/03/22 10:20 General Stated Complaint: CVA/TIA TREVOR: 2 PFSH All Active Problems (Updated 12/03/22 @ 11:04 by Adis Jacome MD) Acute encephalopathy (Acute) Hypomagnesemia (Acute) Elevated brain natriuretic peptide (BNP) level (Acute) Normocytic anemia (Acute) Current use of mcfp anticoagulation (Acute) Acute cerebrovascular accident (CVA) (Acute) Obstructive sleep apnea syndrome (Chronic 08/10/08) cpap Dysplastic colon polyp (Acute) Urothelial carcinoma (Acute) 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 denies this Atopic conjunctivitis (10/22/13) Atrial fibrillation Benign prostatic hyperplasia (02/25/13) Bladder cancer Carpal tunnel syndrome Chronic anticoagulation Chronic venous stasis Creatinine elevation Depressive disorder (02/25/13) Diabetes mellitus (02/25/13) Diabetic leg ulcer Elevated WBCs Essential hypertension (06/24/13) Frequency of micturition (01/03/16) Glaucoma (10/22/13) B/L Gross hematuria Hyperglycemia Hyperlipidemia (02/25/13) Hypermetropia (10/22/13) Hypogonadism Idiopathic peripheral neuropathy Low back pain (08/10/08) Noncompliance Nuclear senile cataract (10/22/13) Obesity (08/10/08) Aviva-en-y 02/2014 Olecranon bursitis Osteoarthritis (08/10/08) BILATERAL KNEE replacements Peptic reflux disease (08/10/08) Peripheral neuralgia Phimosis Presbyopia (10/22/13) Pterygium (08/10/08) LEFT EYE Regular astigmatism (10/22/13) Sensorineural hearing loss, bilateral (09/05/17) Tubular adenoma Tubular and tubulovillous adenoma 2011 --suggested repeat 2017 Ulcer of hermosillo limited to breakdown of skin Umbilical hernia (08/18/12) Ureterolithiasis Urgency of urination (01/03/16) Urinary tract infection UTI (urinary tract infection) Varicose veins of lower extremity (08/10/08) Venous insufficiency (chronic) (peripheral) Surgical History History of transurethral destruction of bladder lesion Hx of total knee arthroplasty Pt reports he has had a left and right knee repacement. Pt doesnt remember when and thinks he had it done at [facility] [place] Fundoplication Repair of umbilical hernia Laparoscopic Aviva-en-y surgery for weight loss S/P cholecystectomy (~01/04/21) acute hemorrhagic cholecystitis and xanthogranulomatous inflammation S/P colonoscopy Haddad-2011- tubular and tubulovillous polyps Santiago- 2019- sessile serrated with low grade dysplacia, tubullovillous with high grade dysplacia and tubular adenomas S/P partial colectomy (~05/09/20) Status post abdominoplasty (05/23/16) Status post cholecystectomy Status post tonsillectomy Status post total knee replacement B/L Vasectomy Family History Mother Cancer Father Heart disease Sister Cancer Sister No problems noted. Brother No problems noted. Brother No problems noted. Brother No problems noted. Son No problems noted. Son No problems noted. Son No problems noted. Social History Smoking/Tobacco Use Status: Never Second Hand Exposure: Yes Smoking risk assessment performed?: Yes Alcohol Intake: never Drug use: Never Substance use type: does not use Caregiver/Support person: No Household members: other Details: son Housing: apartment Communication Needs: None Do you need help understanding health information?: Never Pets and animals: No Do you think of yourself as: straight/heterosexual Current gender identity: male What is your relationship status?: How often do you talk on the phone with friends or family?: once per week How often do you get together with friends or relatives?: decline to answer How often do you attend episcopal or scientologist services?: decline to answer Do you belong to any clubs or organized social groups?: no Panel score (0-1 are the most socially isolated patients): 0 What type of physical activity do you participate in: walking Duration: 15-30 minutes/day Frequency: 1-2 times per week Velia/Confucianist: Latter-Day Special velia needs: No Seatbelt use: always Helmet use: No Drive intox or ride w/intox tower truck driver: No Do you feel safe at home: Yes Do you feel safe in your relationship?: Yes Exam Narrative Exam Narrative: General: Chronically ill-appearing in no acute distress not verbally responsive but alert with left-sided gaze preference Head: Normocephalic, atraumatic Ear, nose, mouth, throat: Grossly normal inspection. Plate that handling secretions normally. Neck: Trachea midline. Cardiovascular: Well-perfused distal extremities. Bilateral 1+ lower extremity pitting edema. Rapid irregular irregular rate. Back: No obvious sacral decubitus ulcers. Respiratory: Nonlabored respiration. No accessory muscle use. Decreased breath sounds bilateral bases. Saturating well on 4 L Gastrointestinal: Moderately distended abdomen. Soft. No obvious tenderness. Musculoskeletal: Not moving extremities. Varicose veins bilaterally to lower extremities with signs of chronic venous insufficiency to the lower extremities. Skin: Normal for age and race, grossly normal temperature and turgor. No acute rash. Neurologic: GCS 10: E4, V1, M5. No afferent pupillary defect. Difficult to assess NIH stroke scale secondary to the patient's lack of participation. 1 a alert keenly responsive, 0 1B aphasic, +2 1C, performed 0 tasks correctly, +2 Horizontal extraocular eye movements forced left-sided gaze palsy that cannot be overcome, +2 Unable to complete assessment of visual leyva, Unable to assess facial palsy 5 and 6 total of 16 points secondary to no movement bilateral upper and lower extremities. 7 does not understand, 0 8. Sensation no response, +2 9. Aphasia mute, +3 10 dysarthria mute + 11 extinction extinction to 1+ modality +2 Total NIH stroke scale 29 Critical Care Time Critical Care Time Critical Care Time: Yes Total Critical Care Time: 30 Attestation: I completed 30 minutes of critical care time on this patient. POCUS Exam (ED) Limited Cardiac Exam DATE OF EXAM: 12/03/22 TIME OF EXAM: 09:05 PROVIDER THAT PERFORMED THE STUDY: Adis Jacome REASON FOR EXAM: Dyspnea VISUALIZED STRUCTURES: Four Chambers, Left ventricle and LVOT VIEW OBTAINED: Apical 4-Chamber, Parasternal long-axis, Subxiphoid and Other (Lungs) PERTINENT FINDINGS/IMPRESSION: Other Good squeeze, LV less than RV, aortic outflow tract less than 4 cm, no significant pericardial effusion. Exam complete
--- NOTE | 2022-12-03 08:15 | RT.EKG_ITS ---
APPROVED REPORT Exam: Resting ECG Reason for Exam: weakness Patient Location: E HR:106 bpm ECG Measurements Heart Rate [address] [id number] P [id number] QRSd 84 QRS 42 QT 361 T -12 QTc 481 Conclusion Atrial flutter/fibrillation...A-rate 233, multiple Ps Low voltage, extremity and precordial leads...extremity<0.5mV, precordial<1.0mV Consider anteroseptal infarct...Q >30mS, dimin R, V1-V2 Narrow complex rate controlled atrial fibrillation at a rate of 106. Low voltage. Normal axis. QTc within normal limits. No ST segment abnormalities. Compared to prior low voltage is persistent as is atrial fibrillation. Prior dated 2020.
[2022-12-03 08:38] LABS: BE (Venous) -6 mmol/L (-2-3); HCO3 (Venous) 19 mmol/L (23-28); O2 Sat (Venous) 84 %; TCO2 (Venous) 17 mmol/L (24-29); pCO2 (Venous) 31 mmHg (41-51); pH (Venous) 7.39 (7.31-7.41); pO2 (Venous) 51 mmHg
[2022-12-03 08:40] LABS: Abs Immature Grans 0.07 10^3/uL (0.0-0.06); Absolute Basophil Count 0.02 10^3/uL (0.0-0.2); Absolute Eosinophil Count 0.03 10^3/uL (0.0-0.7); Absolute Lymphocyte Count 0.63 10^3/uL (1.2-3.4); Absolute Monocyte Count 0.86 10^3/uL (0.1-0.8); Absolute Neutrophil Count 8.94 10^3/uL (1.2-6.7); Basophils % 0.2; Eosinophils % 0.3; HCT 31.3 % (40.0-50.0); HGB 10.1 g/dL (13.5-17.5); Immature Grans % 0.7; MCHC 32.3 % (32.0-36.0); MCV 84 fL (80-95); MPV 8.9 fL (8.0-11.0); Monocytes % 8.2; Neutrophils % 84.6; Platelet Count 244 10^3/uL (130-400); RBC 3.74 10^6/uL (4.36-5.78); RDW 16.9 % (11.8-14.1); RDW-SD 51.5 fL; WBC 10.55 10^3/uL (4.4-10.8)
[2022-12-03] MEDS: Omnipaque 350 MG/ML 500 ML BTL-Imaging package IJ (08:59)
[2022-12-03 09:03] LABS: ALT 26 U/L (16-63); AST 16 U/L (15-37); Albumin 2.9 g/dL (3.4-5.0); Alkaline Phosphatase 121 U/L (46-116); Anion Gap 11.4 mmol/L (3-11); BUN 37 mg/dL (7-18); CO2 20.6 mmol/L (21.0-32.0); CREATININE 1.9 mg/dL (0.70-1.30); Calcium 8.6 mg/dL (8.5-10.1); Chloride 107 mmol/L (98-107); Estimated GFR 37.02 (mL/min/1.73m2); Glucose 288 mg/dL (74-106); Magnesium 1.7 mg/dL (1.8-2.4); Potassium 4.5 mmol/L (3.5-5.1); Sodium 139 mmol/L (136-145); Total Protein 6.9 g/dL (6.4-8.2); Troponin I < 50 ng/L (<or=60)
[2022-12-03 09:04] LABS: ETHANOL BLOOD < 3.0 mg/dL (<10)
[2022-12-03 09:06] LABS: NT-proBNP 7496 pg/mL (<300)
[2022-12-03 09:08] LABS: Salicylate < 2.8 mg/dL (<2.8)
[2022-12-03 09:09] LABS: Acetaminophen < 2 ug/mL (10-30)
--- NOTE | 2022-12-03 09:15 | DI.MRI_ITS ---
Exam(s) MR BRAIN WO EXAM: MR BRAIN WO CLINICAL HISTORY: Acute encephalopathy TECHNIQUE: Multiplanar multisequence MRI of the brain was performed. COMPARISON: CT CT BRAIN NECK CTA from 12/03/2022 FINDINGS: VENTRICLES AND EXTRA AXIAL SPACES: Normal in size and morphology for the patient's age. MIDLINE SHIFT: None. CEREBRAL PARENCHYMA: There is restricted diffusion seen at the frontal parietal watershed region. Th ere is also an area of restricted diffusion in the right cerebellum which show some decreased signal on the ADC images. No space-occupying lesion identified. HEMORRHAGE: None. BRAINSTEM/CEREBELLUM: Normal. CALVARIUM: Normal. VISUALIZED PARANASAL SINUSES/MASTOIDS:There is a mucous retention cyst or polyp in the left maxillary sinus. KAKE OF CORTEZ: Normal flow void. PITUITARY GLAND: Unremarkable. OTHER FINDINGS: None. IMPRESSION: 1. Area of restricted diffusion seen in the left frontal parietal watershed region. The findings cou ld be seen with an acute infarct. 2. Smaller similar area of restricted diffusion in the right cerebellum. 3. Findings were discussed with Dr. Jacome at 11 a.m. on 12/03/2022. DATA REPOSITORY:
[2022-12-03 09:29] LABS: Bilirubin Negative (Negative); Blood Moderate (Negative); Clarity Cloudy (Clear); Glucose 100 mg/dL (Negative); Ketones Negative (Negative); Leukocyte Esterase Moderate (Negative); Nitrite Negative (Negative); Urobilinogen 0.2 mg/dL (Up to 0.2); pH 5.5 (5-8)
[2022-12-03 09:32] LABS: Source Nasal/Nares
[2022-12-03 09:36] LABS: Bacteria Rare HPF (Negative); C & S Indicated? Yes; Casts Negative LPF (Negative); Crystals Negative HPF (Negative); Epithelial Cells Rare HPF (Negative); Mucus Negative (Negative); RBC 0-2 HPF (0-2); WBC >50 HPF (0-5)
[2022-12-03 09:44] LABS: *AMPHETAMINES SCREEN URINE Negative (Negative); *BARBITURATES SCREEN URINE Negative (Negative); *BENZODIAZEPINES SCREEN URINE Negative (Negative); Cannabinoids THC Negative (Negative); Cocaine Screen,Urine Negative (Negative); METHADONE URINE SCREEN Negative (Negative); OPIATES URINE SCREEN Negative (Negative); Tricyclic Antidepressants Negative (Negative)
[2022-12-03] MEDS: MAGNESIUM SULFATE 2 GM/50 ML BAG IVPB (09:44)
[2022-12-03] MEDS: Furosemide 20 MG/2 ML VIAL IVP (10:47)
[2022-12-03 10:53] LABS: COVID-19 PCR Negative (Negative)
[2022-12-03] MEDS: Metoprolol CR 50 MG TABCR 100 MG PO (11:18)
[2022-12-03] MEDS: dilTIAZem CD 180 MG CAPCR PO (11:23)
[2022-12-03] MEDS: LISINOPRIL 2.5 MG TAB PO (11:24)
[2022-12-03 11:54] LABS: Troponin I < 50 ng/L (<or=60)
== END 2022-12-03 15:21 | disposition short-term general hospital (02) ==
PROVIDERS: Emergency Provider Emergency Medicine; PCP Internal Medicine
DX: I63.9 Cerebral infarction, unspecified (principal); E83.42 Hypomagnesemia; Z85.51 Personal history of malignant neoplasm of bladder; G93.40 Encephalopathy, unspecified; Z91.14 Patient's other noncompliance with medication regimen; Z20.822 Contact with and (suspected) exposure to COVID-19; E87.8 Other disorders of electrolyte and fluid balance, not elsewhere classified; E87.21 Acute metabolic acidosis; N18.9 Chronic kidney disease, unspecified; E11.65 Type 2 diabetes mellitus with hyperglycemia; Z79.01 Long term (current) use of anticoagulants; E11.22 Type 2 diabetes mellitus with diabetic chronic kidney disease; J45.909 Unspecified asthma, uncomplicated; I12.9 Hypertensive chronic kidney disease with stage 1 through stage 4 chronic kidney disease, or unspecified chronic kidney disease; R79.89 Other specified abnormal findings of blood chemistry; R06.89 Other abnormalities of breathing
CPT/HCPCS: 36415; 70496; 70498; 80053; 80307; 82805; 87635; 93005; 93308; 96365; 96366; 96375; 99284; 70551; 71045; 80320; 80329; 81003; 81015; 83735; 83880; 84484; 85025; 87086; 93010; J1941

== ENCOUNTER 2023-02-19 12:06 | Outpatient (REF) | payer MEDICARE, SELFPAY ==
[2023-02-19 15:24] LABS: Abs Immature Grans 0.02 10^3/uL (0.0-0.06); Absolute Basophil Count 0.04 10^3/uL (0.0-0.2); Absolute Eosinophil Count 0.15 10^3/uL (0.0-0.7); Absolute Lymphocyte Count 1.01 10^3/uL (1.2-3.4); Absolute Monocyte Count 0.42 10^3/uL (0.1-0.8); Absolute Neutrophil Count 3.73 10^3/uL (1.2-6.7); Basophils % 0.7; Eosinophils % 2.8; HGB 11.6 g/dL (13.5-17.5); Immature Grans % 0.4; Lymphocytes % 18.8; MCH 28.4 pg (27.0-33.0); MCHC 32.2 % (32.0-36.0); MCV 88 fL (80-95); MPV 9.7 fL (8.0-11.0); Monocytes % 7.8; Neutrophils % 69.5; Platelet Count 248 10^3/uL (130-400); RBC 4.09 10^6/uL (4.36-5.78); RDW 16.5 % (11.8-14.1); RDW-SD 53.4 fL; WBC 5.37 10^3/uL (4.4-10.8)
[2023-02-19 16:22] LABS: ALT 24 U/L (16-63); AST 16 U/L (15-37); Albumin 3.4 g/dL (3.4-5.0); Alkaline Phosphatase 95 U/L (46-116); BUN 36 mg/dL (7-18); Bilirubin, Total 0.5 mg/dL (0.2-1.0); CREATININE 1.6 mg/dL (0.70-1.30); Calcium 9.1 mg/dL (8.5-10.1); Chloride 106 mmol/L (98-107); Estimated GFR 45.21 (mL/min/1.73m2); Glucose 189 mg/dL (74-106); Sodium 140 mmol/L (136-145); Total Protein 7.2 g/dL (6.4-8.2)
== END 2023-02-19 12:07 | disposition home or self-care (01) ==
LOC: NCHCN 12:06
PROVIDERS: PCP Internal Medicine; Visit Provider Family Medicine
DX: E11.65 Type 2 diabetes mellitus with hyperglycemia (principal); I63.9 Cerebral infarction, unspecified; I48.91 Unspecified atrial fibrillation; I87.2 Venous insufficiency (chronic) (peripheral)
CPT/HCPCS: 80053; 85025

== ENCOUNTER → 2023-03-12 13:43 | Outpatient (BNVA) | payer MEDICARE, SELFPAY | PROVIDERS: PCP Internal Medicine; Referring Provider Physical Medicine & Rehabilitation; Visit Provider Psychiatry & Neurology Neurology | DX: I69.320 Aphasia following cerebral infarction (principal); I48.91 Unspecified atrial fibrillation; Z91.148 Patient's other noncompliance with medication regimen for other reason | CPT/HCPCS: 99215 ==

== ENCOUNTER 2023-04-06 09:31 | Emergency (ER) | payer MEDICARE, SELFPAY ==
--- NOTE | 2023-04-06 09:15 | DI.CT_ITS ---
Exam(s) CT HEAD WO EXAM: CT HEAD WO CLINICAL HISTORY: seizure. TECHNIQUE: Imaging Protocol: Axial computed tomography images with coronal and sagittal reformatted images were created and reviewed COMPARISON: CT CT BRAIN NECK CTA from 12/03/2022 FINDINGS: Ventricles and Extra axial spaces: Normal in size and morphology for the patient's age. Hemorrhage: None. Cerebral parenchyma: No acute territorial infarct is seen. There are areas of decreased attenuation in the white matter consistent with small vessel ischemic disease. There is an area of encephalomala jordan involving the left frontal lobe. Midline shift: None. Brainstem/Cerebellum: Normal. Calvarium: Normal. Visualized Paranasal sinuses/Mastoids: There is a mucous retention cyst or polyp in the left maxillar y sinus. Soft Tissues: Unremarkable. IMPRESSION: No acute intracranial process. RADIATION DOSE DELIVERED: 729.42mGy.cm Total DLP DATA REPOSITORY: All CT scans at this facility are submitted to the National Radiology Data Registry (NRDR) Dose Index Registry (DIR) with the [employer] (ACR). RADIATION OPTIMIZATION: All CT scans at this facility use at least one of these dose optimization te chniques: automated exposure control; mA and/or kV adjustment per patient size (includes targeted exa ms where dose is matched to clinical indication); or iterative reconstruction.
--- NOTE | 2023-04-06 09:15 | RT.EKG_ITS ---
APPROVED REPORT Exam: Resting ECG Reason for Exam: seizure vs syncope Patient Location: E HR:82 bpm ECG Measurements Heart Rate 82 AXIS AL [id number] P [id number] QRSd 102 QRS 36 QT 399 T 38 QTc 466 Conclusion Atrial fibrillation...V-rate 65-129, irreg A-activity Low voltage, extremity and precordial leads...extremity<0.5mV, precordial<1.0mV Consider anteroseptal infarct...Q >30mS, dimin R, V1-V2
[2023-04-06 09:31] VITALS: BP 159/88; PULSE 82; RESP 16; O2SAT 95
--- NOTE | 2023-04-06 09:45 | ED.GENADUL_ITS ---
Discharge Plan Disposition Patient Disposition: Home Condition: Stable Discharge Details Clinical Impression: Seizure-like activity Primary Care Provider: [facility] ED Provider: Mesfin Kern Meds and New Rx's Prescriptions: Continued finasteride 5 mg tablet 5 mg PO DAILY Qty: 90 3RF lisinopril 5 mg tablet 5 mg PO DAILY Qty: 90 3RF phenazopyridine [Pyridium] 200 mg tablet 200 mg PO TID PRN (Reason: pain) Qty: 20 0RF Patient Comments: Medication not on med list from PCP 12/03/22 CT Eliquis 5 mg tablet 5 mg PO BID Qty: 180 3RF metoprolol succinate 100 mg tablet extended release 24 hr 100 mg PO DAILY Qty: 90 3RF nystatin 100,000 unit/gram cream 1 applic topical BID Qty: 30 2RF Patient Comments: Medication not on med list from PCP 12/03/22 CT metformin 1,000 mg tablet 1,000 mg PO BID multivitamin [Daily Vitamin] 1 EACH tablet 2 ea PO DAILY Patient Comments: Medication not on med list from PCP 12/03/22 CT cyanocobalamin (vitamin B-12) [Vitamin B-12] 500 MCG tablet 500 mcg PO DAILY Patient Comments: T REPORTS HE NO LONGER TAKES calcium carbonate-vitamin D3 [Calcium 600 + D(3)] 1 EACH tablet 2 ea PO DAILY Patient Comments: PT REPORTS HE NO LONGER TAKES iron 159 mg (45 mg iron) tablet extended release 159 mg PO DAILY Patient Comments: 07/28/19 65 mg daily. si Rx Instructions: NOT SURE OF DOSE Farxiga 10 mg tablet 10 mg PO DAILY Qty: 90 3RF Patient Comments: PT REPORTS HE NO LONGER TAKES lovastatin 20 mg tablet 20 mg PO DAILY Qty: 90 3RF diltiazem HCl [Tiadylt ER] 300 mg capsule,extended release 24 hr 300 mg PO DAILY semaglutide 7 mg tablet 7 mg PO DAILY Patient Comments: Medication not on med list from PCP 12/03/22 CT insulin glargine [Lantus U-100 Insulin] 100 unit/mL solution 10 unit subcut QPM acetaminophen 325 mg capsule 650 mg PO ONCE PRN atorvastatin 40 mg tablet 40 mg PO DAILY ciprofloxacin HCl [Cipro] 250 mg tablet 250 mg PO BID docusate sodium [Colace] 100 mg capsule 100 mg PO DAILY insulin lispro [Humalog KwikPen Insulin] 100 unit/mL insulin pen 1 sliding scale dose subcut USEASDIRECTD senna 8.6 mg capsule 8.6 mg PO DAILY triamcinolone acetonide 0.1 % ointment 1 applic TOPICAL DAILY Patient Comments: APPLY TOPICALLY DIRECTED TO THE SKIN OF THE LOWER LEGS EVERY NIGHT. Pt reports not using this cREAM. furosemide 20 mg tablet 40 mg PO DAILY Patient Comments: Take 1 tablet by mouth every morning Dr. Cuellar- Cardiology tamsulosin [Flomax] 0.4 mg capsule 0.4 mg PO DAILY Qty: 10 0RF Patient Comments: PT REPORTS HE DOESNT USE THIS MED. Vitamin C 1,000 MG tablet extended release 1,000 mg PO DAILY Patient Comments: PT REPORTS HE NO LINGER TAKES omega-3 fatty acids [Fish Oil Concentrate] 1,000 mg Capsule 2,400 mg PO DAILY Patient Comments: Medication not on med list from PCP 12/03/22 CT levothyroxine 50 mcg tablet 50 mcg PO DAILY Patient Comments: Take 1 tablet by mouth once a day Take on an empty stomach 30 minutes before breakfast or other medications Discharge Instructions Instructions: Hypomagnesemia (ED) Additional Instructions: Based on the description it is likely you experienced a seizure your blood work and imaging did not show concerning findings at this time follow up with your primary care provider or neurologist in 1-2 weeks If you feel more ill, have multiple repeated seizures or new symptoms such as chest pain or difficulty breathing return to the emergency department You should not bathe/swim by your self or drive until cleared by either your primary care provider or neurologist Medical Decision Making 72 yo male with hx of afib on apixiban, cva in November of this year that left him with expressive aphasia, comes in after his son told ems he had a seizure like event lasting one minute. EMS states the son who lives with him reported the patient's arms tensed up and pt would not respond. This resolved on it's own and by the time ems arrived he was at his baseline. HE arrives hemodyanamically stable in afib and awake, is able to answer yes and no questions. He knows where he is and time and his name. He denies any chest pain, dyspnea, fevers, chills. He doesn't remember the event from earlier. HE has no facial assymetry, PERRL, eomi, moving all extremities. When asked how he is feeling he says fine. Unclear if this was a seizure though seems possible, will evaluate for triggers with cbc, cmp, ua, cxr and obtain ct of his head though suspicion for etiologies such as intracranial hemorrhage is low. labs and imaging unremarkable for acute findings. has mildly low magnesium, pt still at his baseline, son is at bedside and agrees he is at his baseline. His son Momo states he was with him this morning and the pt was eating a bagel and then his arms tensed up and started shaking the patient's eyes rolled back and food came out of his mouth, lasted about a minute per the son. Seems consistent with seizure. Given reassuring workup and pt is at his baseline do not feel admission or further testing indicated, pt wishes to be d/c'd and feel this is reasonable. They will f/u with his pcp/neurologist, return precautions given Differential Diagnosis Differential Diagnosis: seizure, syncope Medical Records Medical records reviewed: Yes I reviewed the patient's medical records. Imaging Data Radiologic Study: Attestation: I personally reviewed and interpreted this imaging study as follows: Imaging: CT Scan Radiologist's impression: Exam: CT Head Without Contrast Exam date and time: 04/06/2023 9:59 AM Age: 72 years old Clinical indication: Other: Syncope TECHNIQUE: Imaging protocol: Computed tomography of the head without contrast. Radiation optimization: All CT scans at this facility use at least one of these dose optimization techniques: automated exposure control; mA and/or kV adjustment per patient size (includes targeted exams where dose is matched to clinical indication); or iterative reconstruction. COMPARISON: No relevant prior studies are available for comparison. FINDINGS: Brain: No intracranial hemorrhage appreciated. No significant focal mass effect or significant midline shift. Left frontal encephalomalacia. Chronic ischemic changes are noted. Generalized parenchymal volume loss. Cerebral ventricles: No disproportionate ventriculomegaly. Paranasal sinuses: Mucosal retention cyst versus polyp in the left maxillary sinus. Mastoid air cells: No mastoid effusion. Bones/joints: No acute cranial vault fracture seen. Soft tissues: No acute findings. Vasculature: Arterial calcifications. IMPRESSION: 1. No acute intracranial abnormality is appreciated. 2. Nonacute findings as outlined above. Radiologic Study #2: Attestation: I personally reviewed and interpreted this imaging study as follows: Imaging: X-Ray Radiologist's impression: PROCEDURE INFORMATION: Exam: XR Chest Exam date and time: 04/06/2023 10:11 AM Age: 72 years old Clinical indication: Other: Syncope TECHNIQUE: Imaging protocol: Radiologic exam of the chest. Views: 1 view. COMPARISON: CR XR CHEST 1V IN DI D EPT 12/03/2022 8:19 AM FINDINGS: Lungs: No focal consolidation seen. Pleural spaces: No large pleural effusion seen. Heart/Mediastinum: Enlarged cardiac silhouette. Bones/joints: Grossly unremarkable. Gastrointestinal tract: Gas and fluid-filled bowel loops in the abdomen. IMPRESSION: 1. Enlarged cardiac silhouette. 2. Gas and fluid in bowel loops in the abdomen. Lab Data Lab results reviewed: Yes I reviewed the patient's lab results. ECG Data Attestation: I personally reviewed and interpreted this ECG (s) as follows: Prior ECG tracings: available for review Interpretation: afib, rate of 82, qtc 466, no stemi HPI General Mode of arrival: EMS . Date/Time Provider Initiated Documentation: 04/06/23 09:39 . Information obtained by: patient . History of Present Illness 72 year old M presents to the emergency department with the chief complaint of ?seizure, described as mild, Patient started experiencing this hour(s) (1) and it has been now resolved. No relieving factors improve symptom(s), No exacerbating factors reported . Patient notes denies chest pain, fever/chills and shortness of breath. Patient did receive the following treatments prior to arrival, none Related Data Home Medications Medication Instructions Recorded Confirmed calcium carbonate 600 mg-vitamin 2 ea PO DAILY 03/29/14 03/12/23 D3 10 mcg (400 unit) tablet (Calcium 600 + D(3)) cyanocobalamin (vitamin B-12) 500 500 mcg PO DAILY 03/29/14 03/12/23 mcg tablet (Vitamin B-12) multivitamin (Daily Vitamin tablet) 2 ea PO DAILY 03/29/14 03/12/23 ascorbic acid (vitamin C) 1,000 mg 1,000 mg PO DAILY 01/03/18 03/12/23 tablet,extended release (Vitamin C ER) omega-3 fatty acids 1,000 mg 2,400 mg PO DAILY 10/20/18 03/12/23 capsule (Fish Oil Concentrate) ferrous sulfate, dried 159 mg (45 159 mg PO DAILY 07/28/19 03/12/23 mg iron) tablet,extended release (iron ER) finasteride 5 mg tablet 5 mg PO DAILY #90 tabs 04/27/20 03/12/23 lisinopril 5 mg tablet 5 mg PO DAILY #90 tab-caps 04/27/20 03/12/23 dapagliflozin propanediol 10 mg 10 mg PO DAILY #90 tabs 11/11/20 03/12/23 tablet (Farxiga) metoprolol succinate 100 mg 100 mg PO DAILY #90 tabs 01/10/21 03/12/23 tablet,extended release 24 hr lovastatin 20 mg tablet 20 mg PO DAILY #90 tab-caps 01/12/21 03/12/23 nystatin 100,000 unit/gram topical 1 applic topical BID inguinal rash 02/03/21 03/12/23 cream #30 grams furosemide 20 mg tablet 40 mg PO DAILY 06/01/21 03/12/23 tamsulosin 0.4 mg capsule (Flomax) 0.4 mg PO DAILY #10 caps 06/01/21 03/12/23 triamcinolone acetonide 0.1 % 1 applic topical DAILY 06/01/21 03/12/23 topical ointment diltiazem HCl 300 mg capsule,24 300 mg PO DAILY 01/18/22 03/12/23 hr,extended release (Tiadylt ER) insulin glargine 100 unit/mL 10 unit subcut QPM 01/18/22 03/12/23 subcutaneous solution (Lantus U-100 Insulin) semaglutide 7 mg tablet 7 mg PO DAILY 01/18/22 03/12/23 metformin 1,000 mg tablet 1,000 mg PO BID 01/23/22 03/12/23 phenazopyridine 200 mg tablet 200 mg PO TID PRN pain #20 tabs 02/26/22 03/12/23 (Pyridium) apixaban 5 mg tablet (Eliquis) 5 mg PO BID #180 tabs 07/20/22 03/12/23 levothyroxine 50 mcg tablet 50 mcg PO DAILY 12/03/22 03/12/23 acetaminophen 325 mg capsule 650 mg PO ONCE PRN 12/31/22 03/12/23 atorvastatin 40 mg tablet 40 mg PO DAILY 12/31/22 03/12/23 ciprofloxacin HCl 250 mg tablet 250 mg PO BID 12/31/22 03/12/23 (Cipro) docusate sodium 100 mg capsule 100 mg PO DAILY 12/31/22 03/12/23 (Colace) insulin lispro 100 unit/mL 1 sliding scale dose subcut 12/31/22 03/12/23 subcutaneous pen (Humalog KwikPen USEASDIRECTD (U-100) Insulin) sennosides 8.6 mg capsule (senna) 8.6 mg PO DAILY 12/31/22 03/12/23 Previous Rx's Medication Instructions Recorded finasteride 5 mg tablet 5 mg PO DAILY #90 tabs 04/27/20 lisinopril 5 mg tablet 5 mg PO DAILY #90 tab-caps 04/27/20 dapagliflozin propanediol 10 mg 10 mg PO DAILY #90 tabs 11/11/20 tablet (Farxiga) metoprolol succinate 100 mg 100 mg PO DAILY #90 tabs 01/10/21 tablet,extended release 24 hr lovastatin 20 mg tablet 20 mg PO DAILY #90 tab-caps 01/12/21 nystatin 100,000 unit/gram topical 1 applic topical BID inguinal rash 02/03/21 cream #30 grams tamsulosin 0.4 mg capsule (Flomax) 0.4 mg PO DAILY #10 caps 06/01/21 phenazopyridine 200 mg tablet 200 mg PO TID PRN pain #20 tabs 02/26/22 (Pyridium) apixaban 5 mg tablet (Eliquis) 5 mg PO BID #180 tabs 07/20/22 Allergies Allergy/AdvReac Type Severity Reaction Status Date / Time No Known Allergies Allergy Verified 03/12/23 13:46 General Stated Complaint: GenMedical TREVOR: 3 Review of Systems All systems reviewed & are unremarkable except as noted in HPI and below Constitutional Constitutional: Denies chills, Denies fever(s) and Denies weakness Cardiovascular Cardiovascular: Denies chest pain and Denies dyspnea Respiratory Respiratory: Denies cough and Denies dyspnea Gastrointestinal Gastrointestinal: Denies abdominal pain, Denies nausea and Denies vomiting Integumentary/Breasts Skin/Breast: Denies rash Neurologic Neurologic: Denies weakness PFSH All Active Problems (Updated 04/06/23 @ 10:33 by Mesfin Kern MD) Seizure-like activity (Acute) Global aphasia (Acute) Stroke (Chronic) Obstructive sleep apnea syndrome (Chronic 08/10/08) cpap Dysplastic colon polyp (Acute) Urothelial carcinoma (Acute) 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 denies this Atopic conjunctivitis (10/22/13) Atrial fibrillation Benign prostatic hyperplasia (02/25/13) Bladder cancer Carpal tunnel syndrome Chronic anticoagulation Chronic venous stasis Creatinine elevation Dementia Depressive disorder (02/25/13) Diabetes mellitus (02/25/13) Diabetic leg ulcer Elevated WBCs Essential hypertension (06/24/13) Frequency of micturition (01/03/16) Glaucoma (10/22/13) B/L Gross hematuria History of depression Hyperglycemia Hyperlipidemia (02/25/13) Hypermetropia (10/22/13) Hypertension Hypogonadism Idiopathic peripheral neuropathy Iron deficiency Low back pain (08/10/08) Noncompliance Nuclear senile cataract (10/22/13) Obesity (08/10/08) Aviva-en-y 02/2014 Olecranon bursitis CARLOS A on CPAP Osteoarthritis (08/10/08) BILATERAL KNEE replacements Peptic reflux disease (08/10/08) Peripheral neuralgia Peripheral neuropathy Phimosis Presbyopia (10/22/13) Pterygium (08/10/08) LEFT EYE Regular astigmatism (10/22/13) Sensorineural hearing loss, bilateral (09/05/17) Tubular adenoma Tubular and tubulovillous adenoma 2011 --suggested repeat 2017 Type 2 diabetes mellitus Ulcer of hermosillo limited to breakdown of skin Umbilical hernia (08/18/12) Ureterolithiasis Urgency of urination (01/03/16) Urinary tract infection UTI (urinary tract infection) Varicose veins of lower extremity (08/10/08) Venous insufficiency Venous insufficiency (chronic) (peripheral) Surgical History History of transurethral destruction of bladder lesion Hx of total knee arthroplasty Pt reports he has had a left and right knee repacement. Pt doesnt remember when and thinks he had it done at [facility] [place] Fundoplication Repair of umbilical hernia Laparoscopic Aviva-en-y surgery for weight loss S/P cholecystectomy (~01/04/21) acute hemorrhagic cholecystitis and xanthogranulomatous inflammation S/P colonoscopy Haddad-2011- tubular and tubulovillous polyps 2019- sessile serrated with low grade dysplacia, tubullovillous with high grade dysplacia and tubular adenomas S/P partial colectomy (~05/09/20) Status post abdominoplasty (05/23/16) Status post cholecystectomy Status post tonsillectomy Status post total knee replacement B/L Vasectomy Family History Mother Cancer Father Heart disease Sister Cancer Sister No problems noted. Brother No problems noted. Brother No problems noted. Brother No problems noted. Son No problems noted. Son No problems noted. Son No problems noted. Social History Smoking/Tobacco Use Status: Never Second Hand Exposure: Yes Smoking risk assessment performed?: Yes Alcohol Intake: never Drug use: Never Substance use type: does not use Caregiver/Support person: No Household members: other Details: son Housing: apartment Communication Needs: None Education Level: high school Do you need help understanding health information?: Never Pets and animals: No Do you think of yourself as: straight/heterosexual Current gender identity: male What is your relationship status?: How often do you talk on the phone with friends or family?: once per week How often do you get together with friends or relatives?: decline to answer How often do you attend jainism or denominational services?: decline to answer Do you belong to any clubs or organized social groups?: no Panel score (0-1 are the most socially isolated patients): 0 What type of physical activity do you participate in: walking Duration: 15-30 minutes/day Frequency: 1-2 times per week Velia/Baptist: Christianity Special velia needs: No Seatbelt use: always Helmet use: No Drive intox or ride w/intox city route driver: No Do you feel safe at home: Yes Do you feel safe in your relationship?: Yes Exam Const General: no acute distress Orientation: alert HENMT Head: normal to inspection Ears: external ears normal General nose exam: external nose normal Mouth: moist mucous membranes Eyes General: appearance normal, both eyes and all related structures Neck Neck: normal visual inspection Resp Effort & Inspection: normal respiratory effort and able to speak in complete sentences Auscultation: clear to auscultation bilaterally Cardio Jugular venous pressure: no JVD Heart Sounds: no murmurs Skin General skin exam: no rashes or lesions noted Neuro General: patient alert and patient oriented x3 Extrem General: normal to inspection Psych Mental Status: mental status grossly normal Course Vital Signs Vital signs: Vital Signs Pulse 82 04/06/23 09:31 Respiratory Rate 16 04/06/23 09:31 Blood Pressure 159/88 H 04/06/23 09:31 Pulse Oximetry 95 04/06/23 09:31 Pulse 82 04/06/23 09:31 Respiratory Rate 16 04/06/23 09:31 Blood Pressure 159/88 H 04/06/23 09:31 Pulse Oximetry 95 04/06/23 09:31 Oxygen Delivery Method Room Air 04/06/23 09:31 Oxygen Flow Rate 0 04/06/23 09:31
[2023-04-06 09:46] LABS: Abs Immature Grans 0.02 10^3/uL (0.0-0.06); Absolute Basophil Count 0.03 10^3/uL (0.0-0.2); Absolute Eosinophil Count 0.18 10^3/uL (0.0-0.7); Absolute Lymphocyte Count 1.17 10^3/uL (1.2-3.4); Absolute Monocyte Count 0.57 10^3/uL (0.1-0.8); Absolute Neutrophil Count 3.71 10^3/uL (1.2-6.7); Basophils % 0.5; Eosinophils % 3.2; HCT 38.3 % (40.0-50.0); HGB 12.6 g/dL (13.5-17.5); Immature Grans % 0.4; Lymphocytes % 20.6; MCH 28.8 pg (27.0-33.0); MCHC 32.9 % (32.0-36.0); MCV 88 fL (80-95); MPV 9.3 fL (8.0-11.0); Neutrophils % 65.3; Platelet Count 229 10^3/uL (130-400); RBC 4.37 10^6/uL (4.36-5.78); RDW 14.8 % (11.8-14.1); RDW-SD 47.8 fL; WBC 5.68 10^3/uL (4.4-10.8)
[2023-04-06 09:59] LABS: INR 1.1 (0.9-1.1); PTT Activated 36.9 sec (21.5-31.9); Prothrombin Time 11.6 sec (9.3-11.0)
[2023-04-06 10:00] LABS: Bilirubin Negative (Negative); Blood Small (Negative); Clarity Clear (Clear); Glucose Negative (Negative); Ketones Negative (Negative); Leukocyte Esterase Negative (Negative); Nitrite Negative (Negative); Urobilinogen 0.2 mg/dL (Up to 0.2)
[2023-04-06 10:07] LABS: ALT 27 U/L (16-63); AST 18 U/L (15-37); Albumin 3.9 g/dL (3.4-5.0); Alkaline Phosphatase 101 U/L (46-116); Anion Gap 11.2 mmol/L (3-11); BUN 25 mg/dL (7-18); Bilirubin, Total 0.7 mg/dL (0.2-1.0); CO2 25.8 mmol/L (21.0-32.0); CREATININE 1.3 mg/dL (0.70-1.30); Chloride 103 mmol/L (98-107); Estimated GFR 58.01 (mL/min/1.73m2); Glucose 145 mg/dL (74-106); Magnesium 1.5 mg/dL (1.8-2.4); Potassium 3.7 mmol/L (3.5-5.1); Sodium 140 mmol/L (136-145); TSH (W/Ref FT4) 1.98 uIU/mL (0.36-3.74); Total Protein 7.6 g/dL (6.4-8.2); Troponin I < 50 ng/L (<or=60)
[2023-04-06 10:09] LABS: Bacteria Rare HPF (Negative); C & S Indicated? No; Casts Negative LPF (Negative); Crystals Negative HPF (Negative); Epithelial Cells Moderate HPF (Negative); Mucus Moderate (Negative); RBC 0-2 HPF (0-2); WBC 0-2 HPF (0-5)
--- NOTE | 2023-04-06 10:12 | DI.RAD_ITS ---
Exam(s) XR CHEST 1V IN DI DEPT EXAM: XR CHEST 1V IN DI DEPT CLINICAL HISTORY: syncope TECHNIQUE: 2D digital imaging was performed of the chest. One image was obtained. An AP view was ob tained. COMPARISON: CR XR CHEST 1V IN DI DEPT from 12/03/2022 FINDINGS: MEDIASTINUM: Normal. HEART: Cardiomegaly. PULMONARY VASCULATURE: Normal. LUNGS: Clear. PLEURAL SPACE: No pleural effusion or pneumothorax. BONE:Within normal limits for the patient's age. There opacity seen in the upper lobes bilaterally wh ich appears to represent the articulation between the 1st rib and sternum. They are similar compared to prior examinations. OTHER FINDINGS:Normal. IMPRESSION: No acute pulmonary findings. If symptoms persist, a CT scan of the chest may be obtained for further evaluation. DATA REPOSITORY: RADIATION DOSE DELIVERED:
--- NOTE | 2023-04-06 10:16 | DI.VRAD_ITS ---
PROCEDURE INFORMATION: Exam: CT Head Without Contrast Exam date and time: 04/06/2023 9:59 AM Age: 72 years old Clinical indication: Other: Syncope TECHNIQUE: Imaging protocol: Computed tomography of the head without contrast. Radiation optimization: All CT scans at this facility use at least one of these dose optimization techniques: automated exposure control; mA and/or kV adjustment per patient size (includes targeted exams where dose is matched to clinical indication); or iterative reconstruction. COMPARISON: No relevant prior studies are available for comparison. FINDINGS: Brain: No intracranial hemorrhage appreciated. No significant focal mass effect or significant midline shift. Left frontal encephalomalacia. Chronic ischemic changes are noted. Generalized parenchymal volume loss. Cerebral ventricles: No disproportionate ventriculomegaly. Paranasal sinuses: Mucosal retention cyst versus polyp in the left maxillary sinus. Mastoid air cells: No mastoid effusion. Bones/joints: No acute cranial vault fracture seen. Soft tissues: No acute findings. Vasculature: Arterial calcifications. IMPRESSION: 1. No acute intracranial abnormality is appreciated. 2. Nonacute findings as outlined above. Dictated and Authenticated by: Mojgan Tyson MD. Ordering:KAYLYNN Toure MD
--- NOTE | 2023-04-06 10:17 | DI.VRAD_ITS ---
PROCEDURE INFORMATION: Exam: XR Chest Exam date and time: 04/06/2023 10:11 AM Age: 72 years old Clinical indication: Other: Syncope TECHNIQUE: Imaging protocol: Radiologic exam of the chest. Views: 1 view. COMPARISON: CR XR CHEST 1V IN DI DEPT 12/03/2022 8:19 AM FINDINGS: Lungs: No focal consolidation seen. Pleural spaces: No large pleural effusion seen. Heart/Mediastinum: Enlarged cardiac silhouette. Bones/joints: Grossly unremarkable. Gastrointestinal tract: Gas and fluid-filled bowel loops in the abdomen. IMPRESSION: 1. Enlarged cardiac silhouette. 2. Gas and fluid in bowel loops in the abdomen. Dictated and Authenticated by: Mojgan Tyson MD. Ordering:KAYLYNN Toure MD
== END 2023-04-06 10:45 | disposition home or self-care (01) ==
PROVIDERS: Emergency Provider Emergency Medicine; PCP Internal Medicine
DX: R56.9 Unspecified convulsions (principal); R55 Syncope and collapse; I48.91 Unspecified atrial fibrillation; Z79.01 Long term (current) use of anticoagulants; I69.820 Aphasia following other cerebrovascular disease
CPT/HCPCS: 80053; 93005; 99285; 70450; 71045; 81003; 81015; 83735; 84443; 84484; 85025; 85610; 85730; 93010; 99284

== ENCOUNTER 2023-05-02 14:12 | Inpatient (IN) | payer MEDICARE, SELFPAY ==
[2023-05-02] VITALS (37 sets, daily range): BP systolic 136–186; BP diastolic 78–130; PULSE 72–122; RESP 12–25; TEMP 36–37.1; O2SAT 95–99
[2023-05-02] MEDS: Midazolam 10 MG/10 ML 5 MG IVP (14:25)
--- NOTE | 2023-05-02 16:00 | DI.RAD_ITS ---
Exam(s) XR CHEST 2V PA LATERAL TECHNIQUE: 2D digital imaging was performed of the chest. Two images were obtained. PA and lateral views were obtained. COMPARISON: CR,XR XR CHEST 1V IN DI DEPT from 04/06/2023 FINDINGS: MEDIASTINUM: Normal. HEART: Unchanged cardiomegaly. PULMONARY VASCULATURE: Normal. LUNGS: Clear. PLEURAL SPACE: No pleural effusion or pneumothorax. BONE:Within normal limits for the patient's age. There again seen prominence of the articulations be tween the 1st rib and the sternum bilaterally. OTHER FINDINGS:Normal. IMPRESSION: No acute pulmonary findings. DATA REPOSITORY: RADIATION DOSE DELIVERED:
--- NOTE | 2023-05-02 16:00 | DI.CT_ITS ---
Exam(s) CT HEAD WO CLINICAL HISTORY: . TECHNIQUE: Imaging Protocol: Axial computed tomography images with coronal and sagittal reformatted images were created and reviewed COMPARISON: CT CT HEAD WO from 04/06/2023 FINDINGS: Ventricles and Extra axial spaces: Normal in size and morphology for the patient's age. Hemorrhage: None. Cerebral parenchyma: There is an old infarct seen in the watershed area between the left frontal korey etal lobes which appears stable. No acute territorial infarct is seen. Dystrophic calcifications ar e again seen in the basal ganglia bilaterally. Midline shift: None. Brainstem/Cerebellum: Normal. Calvarium: Normal. Visualized Paranasal sinuses/Mastoids: Clear. Soft Tissues: Unremarkable. IMPRESSION: 1. No acute intracranial process. 2. Findings were discussed with Vanessa Hebert at 4:40 p.m. on 05/02/2023. RADIATION DOSE DELIVERED: 722.42mGy.cm Total DLP 722.42mGy.cm Total DLP DATA REPOSITORY: All CT scans at this facility are submitted to the National Radiology Data Registry (NRDR) Dose Index Registry (DIR) with the [employer] ([employer]). RADIATION OPTIMIZATION: All CT scans at this facility use at least one of these dose optimization te chniques: automated exposure control; mA and/or kV adjustment per patient size (includes targeted exa ms where dose is matched to clinical indication); or iterative reconstruction.
[2023-05-02] MEDS: levETIRAcetam 500 MG/5 ML VIAL (17:05)
[2023-05-02] MEDS: Normal Saline 100 ML (17:05)
--- NOTE | 2023-05-02 17:47 | NUR.NOTE ---
Nursing Note: Pt able to stand at the side of the bed and use urinal. RN stood at pt side till retuning safely to bed
[2023-05-02 17:55] LABS: Abs Immature Grans 0.02 10^3/uL (0.0-0.06); Absolute Basophil Count 0.02 10^3/uL (0.0-0.2); Absolute Eosinophil Count 0.12 10^3/uL (0.0-0.7); Absolute Lymphocyte Count 1.02 10^3/uL (1.2-3.4); Absolute Monocyte Count 0.75 10^3/uL (0.1-0.8); Absolute Neutrophil Count 4.85 10^3/uL (1.2-6.7); Basophils % 0.3; Eosinophils % 1.8; HCT 36.4 % (40.0-50.0); Immature Grans % 0.3; MCH 28.5 pg (27.0-33.0); MCV 87 fL (80-95); MPV 8.8 fL (8.0-11.0); Monocytes % 11.1; Neutrophils % 71.5; Platelet Count 248 10^3/uL (130-400); RBC 4.21 10^6/uL (4.36-5.78); RDW 14.4 % (11.8-14.1); RDW-SD 45.3 fL; WBC 6.78 10^3/uL (4.4-10.8)
[2023-05-02 17:58] LABS: ALT 18 U/L (16-63); AST 10 U/L (15-37); Albumin 3.4 g/dL (3.4-5.0); Alkaline Phosphatase 97 U/L (46-116); Anion Gap 10.7 mmol/L (3-11); BUN 31 mg/dL (7-18); Bilirubin, Total 0.7 mg/dL (0.2-1.0); CO2 25.3 mmol/L (21.0-32.0); CREATININE 1.5 mg/dL (0.70-1.30); Calcium 9.1 mg/dL (8.5-10.1); Chloride 106 mmol/L (98-107); Estimated GFR 48.85 (mL/min/1.73m2); Glucose 121 mg/dL (74-106); Magnesium 1.6 mg/dL (1.8-2.4); Potassium 4.1 mmol/L (3.5-5.1); Sodium 142 mmol/L (136-145); TSH (W/Ref FT4) 2.03 uIU/mL (0.36-3.74); Total Protein 7.1 g/dL (6.4-8.2); Troponin I < 50 ng/L (<or=60)
--- NOTE | 2023-05-02 18:15 | RT.EKG_ITS ---
APPROVED REPORT Exam: Resting ECG Reason for Exam: weak Patient Location: E HR:85 bpm ECG Measurements Heart Rate 85 AXIS MN [id number] P [id number] QRSd 98 QRS 26 QT 417 T 15 QTc 498 Conclusion Atrial fibrillation...? atrial activity Low voltage, precordial leads...precordial leads <1.0mV Atrial fibrillation. No significant change from prior. WD
[2023-05-02] MEDS: Normal Saline 1,000 ML 125 ML IV (18:35)
--- NOTE | 2023-05-02 18:46 | ED.GENADUL_ITS ---
Discharge Plan Discharge Details Chief Complaint: Seizure Primary Care Provider: [facility] Provider: Vanessa Hebert [place] Meds and New Rx's Prescriptions: No Action finasteride 5 mg tablet 5 mg PO DAILY Qty: 90 3RF lisinopril 5 mg tablet 5 mg PO DAILY Qty: 90 3RF phenazopyridine [Pyridium] 200 mg tablet 200 mg PO TID PRN (Reason: pain) Qty: 20 0RF Patient Comments: Medication not on med list from PCP 12/03/22 CT Eliquis 5 mg tablet 5 mg PO BID Qty: 180 3RF nystatin 100,000 unit/gram cream 1 applic topical BID Qty: 30 2RF Patient Comments: Medication not on med list from PCP 12/03/22 CT metformin 1,000 mg tablet 1,000 mg PO BID multivitamin [Daily Vitamin] 1 EACH tablet 2 ea PO DAILY Patient Comments: Medication not on med list from PCP 12/03/22 CT cyanocobalamin (vitamin B-12) [Vitamin B-12] 500 MCG tablet 500 mcg PO DAILY Patient Comments: T REPORTS HE NO LONGER TAKES calcium carbonate-vitamin D3 [Calcium 600 + D(3)] 1 EACH tablet 2 ea PO DAILY Patient Comments: PT REPORTS HE NO LONGER TAKES iron 159 mg (45 mg iron) tablet extended release 159 mg PO DAILY Patient Comments: 07/28/19 65 mg daily. si Rx Instructions: NOT SURE OF DOSE Farxiga 10 mg tablet 10 mg PO DAILY Qty: 90 3RF Patient Comments: PT REPORTS HE NO LONGER TAKES lovastatin 20 mg tablet 20 mg PO DAILY Qty: 90 3RF diltiazem HCl [Tiadylt ER] 300 mg capsule,extended release 24 hr 300 mg PO DAILY semaglutide 7 mg tablet 7 mg PO DAILY Patient Comments: Medication not on med list from PCP 12/03/22 CT insulin glargine [Lantus U-100 Insulin] 100 unit/mL solution 10 unit subcut QPM acetaminophen 325 mg capsule 650 mg PO ONCE PRN atorvastatin 40 mg tablet 40 mg PO DAILY ciprofloxacin HCl [Cipro] 250 mg tablet 250 mg PO BID docusate sodium [Colace] 100 mg capsule 100 mg PO DAILY insulin lispro [Humalog KwikPen Insulin] 100 unit/mL insulin pen 1 sliding scale dose subcut USEASDIRECTD senna 8.6 mg capsule 8.6 mg PO DAILY metoprolol tartrate 50 mg tablet 50 mg PO BID diltiazem HCl 60 mg tablet 60 mg PO BID triamcinolone acetonide 0.1 % ointment 1 applic TOPICAL DAILY Patient Comments: APPLY TOPICALLY DIRECTED TO THE SKIN OF THE LOWER LEGS EVERY NIGHT. Pt reports not using this cREAM. furosemide 20 mg tablet 40 mg PO DAILY Patient Comments: Take 1 tablet by mouth every morning Dr. Cuellar- Cardiology tamsulosin [Flomax] 0.4 mg capsule 0.4 mg PO DAILY Qty: 10 0RF Patient Comments: PT REPORTS HE DOESNT USE THIS MED. Vitamin C 1,000 MG tablet extended release 1,000 mg PO DAILY Patient Comments: PT REPORTS HE NO LINGER TAKES omega-3 fatty acids [Fish Oil Concentrate] 1,000 mg Capsule 2,400 mg PO DAILY Patient Comments: Medication not on med list from PCP 12/03/22 CT levothyroxine 50 mcg tablet 50 mcg PO DAILY Patient Comments: Take 1 tablet by mouth once a day Take on an empty stomach 30 minutes before breakfast or other medications Medical Decision Making 72-year-old gentleman presenting with a seizure-like activity at his primary care physician's office, on initial assessment he is having focal seizure, tonic like activity isolated to his upper extremities and face, there does not appear to be any lower extremity involvement, this is reportedly his fourth episode, this episode lasted approximately 1 minute until he received 5 mg of Versed We will order 1 g of Keppra He is postictal after the event, he was placed on oxygen for comfort, given his age and comorbidities will order CT scan, diagnostic labs, talk screen, alcohol, and monitor patient on telemetry with neurology consultation Blood glucose was performed by EMS and within normal limits Patient has baseline aphasia, diagnostic exam was performed with patient and he appears to be at his neurological baseline, he is able to follow all basic commands, there is no visible evidence of trauma, there is no reported history of alcohol use I do not see any benzodiazepines in this patient's history Care Immediate Transition to Denice Anglin Nurse Practitioner [address] scan, diagnostic labs, neurology consultation and likely admission HPI General Date/Time Provider Initiated Documentation: 05/02/23 17:38 . HPI Narrative: This 72-year-old gentleman with history of prior CVA 6 months prior to arrival with global effusion since the events, sleep apnea, colon cancer, atrial fibrillation presents with reports of focal seizure-like activity in his primary care physicians office today, he had reportedly 2 events during his appointment. This is reportedly a routine exam. Reportedly had a similar episode which was isolated to one event approximately 1 month prior to arrival with a CT scan that was reportedly negative. Dr. Nunez is sending the patient after administering 5 mg of rectal diazepam. Patient is at his cognitive baseline in between events per sending physician, no report of new or recent trauma. Related Data Home Medications Medication Instructions Recorded Confirmed calcium carbonate 600 mg-vitamin 2 ea PO DAILY 03/29/14 03/12/23 D3 10 mcg (400 unit) tablet (Calcium 600 + D(3)) cyanocobalamin (vitamin B-12) 500 500 mcg PO DAILY 03/29/14 03/12/23 mcg tablet (Vitamin B-12) multivitamin (Daily Vitamin tablet) 2 ea PO DAILY 03/29/14 03/12/23 ascorbic acid (vitamin C) 1,000 mg 1,000 mg PO DAILY 01/03/18 03/12/23 tablet,extended release (Vitamin C ER) omega-3 fatty acids 1,000 mg 2,400 mg PO DAILY 10/20/18 03/12/23 capsule (Fish Oil Concentrate) ferrous sulfate, dried 159 mg (45 159 mg PO DAILY 07/28/19 03/12/23 mg iron) tablet,extended release (iron ER) finasteride 5 mg tablet 5 mg PO DAILY #90 tabs 04/27/20 03/12/23 lisinopril 5 mg tablet 5 mg PO DAILY #90 tab-caps 04/27/20 03/12/23 dapagliflozin propanediol 10 mg 10 mg PO DAILY #90 tabs 11/11/20 03/12/23 tablet (Farxiga) lovastatin 20 mg tablet 20 mg PO DAILY #90 tab-caps 01/12/21 03/12/23 nystatin 100,000 unit/gram topical 1 applic topical BID inguinal rash 02/03/21 03/12/23 cream #30 grams furosemide 20 mg tablet 40 mg PO DAILY 06/01/21 03/12/23 tamsulosin 0.4 mg capsule (Flomax) 0.4 mg PO DAILY #10 caps 06/01/21 03/12/23 triamcinolone acetonide 0.1 % 1 applic topical DAILY 06/01/21 03/12/23 topical ointment diltiazem HCl 300 mg capsule,24 300 mg PO DAILY 01/18/22 03/12/23 hr,extended release (Tiadylt ER) insulin glargine 100 unit/mL 10 unit subcut QPM 01/18/22 03/12/23 subcutaneous solution (Lantus U-100 Insulin) semaglutide 7 mg tablet 7 mg PO DAILY 01/18/22 03/12/23 metformin 1,000 mg tablet 1,000 mg PO BID 01/23/22 03/12/23 phenazopyridine 200 mg tablet 200 mg PO TID PRN pain #20 tabs 02/26/22 03/12/23 (Pyridium) apixaban 5 mg tablet (Eliquis) 5 mg PO BID #180 tabs 07/20/22 03/12/23 levothyroxine 50 mcg tablet 50 mcg PO DAILY 12/03/22 03/12/23 acetaminophen 325 mg capsule 650 mg PO ONCE PRN 12/31/22 03/12/23 atorvastatin 40 mg tablet 40 mg PO DAILY 12/31/22 03/12/23 ciprofloxacin HCl 250 mg tablet 250 mg PO BID 12/31/22 03/12/23 (Cipro) docusate sodium 100 mg capsule 100 mg PO DAILY 12/31/22 03/12/23 (Colace) insulin lispro 100 unit/mL 1 sliding scale dose subcut 12/31/22 03/12/23 subcutaneous pen (Humalog KwikPen USEASDIRECTD (U-100) Insulin) sennosides 8.6 mg capsule (senna) 8.6 mg PO DAILY 12/31/22 03/12/23 diltiazem HCl 60 mg tablet 60 mg PO BID 04/29/23 metoprolol tartrate 50 mg tablet 50 mg PO BID 04/29/23 Previous Rx's Medication Instructions Recorded finasteride 5 mg tablet 5 mg PO DAILY #90 tabs 04/27/20 lisinopril 5 mg tablet 5 mg PO DAILY #90 tab-caps 04/27/20 dapagliflozin propanediol 10 mg 10 mg PO DAILY #90 tabs 11/11/20 tablet (Farxiga) lovastatin 20 mg tablet 20 mg PO DAILY #90 tab-caps 01/12/21 nystatin 100,000 unit/gram topical 1 applic topical BID inguinal rash 02/03/21 cream #30 grams tamsulosin 0.4 mg capsule (Flomax) 0.4 mg PO DAILY #10 caps 06/01/21 phenazopyridine 200 mg tablet 200 mg PO TID PRN pain #20 tabs 02/26/22 (Pyridium) apixaban 5 mg tablet (Eliquis) 5 mg PO BID #180 tabs 07/20/22 Allergies Allergy/AdvReac Type Severity Reaction Status Date / Time No Known Allergies Allergy Verified 03/12/23 13:46 General Stated Complaint: Seizure TREVOR: 3 PFSH All Active Problems (Updated 04/06/23 @ 10:33 by Mesfin Kern MD) Seizure-like activity (Acute) Global aphasia (Acute) Stroke (Chronic) Obstructive sleep apnea syndrome (Chronic 08/10/08) cpap Dysplastic colon polyp (Acute) Urothelial carcinoma (Acute) 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 denies this Atopic conjunctivitis (10/22/13) Atrial fibrillation Benign prostatic hyperplasia (02/25/13) Bladder cancer Carpal tunnel syndrome Chronic anticoagulation Chronic venous stasis Creatinine elevation Dementia Depressive disorder (02/25/13) Diabetes mellitus (02/25/13) Diabetic leg ulcer Elevated WBCs Essential hypertension (06/24/13) Frequency of micturition (01/03/16) Glaucoma (10/22/13) B/L Gross hematuria History of depression Hyperglycemia Hyperlipidemia (02/25/13) Hypermetropia (10/22/13) Hypertension Hypogonadism Idiopathic peripheral neuropathy Iron deficiency Low back pain (08/10/08) Noncompliance Nuclear senile cataract (10/22/13) Obesity (08/10/08) Aviva-en-y 02/2014 Olecranon bursitis CARLOS A on CPAP Osteoarthritis (08/10/08) BILATERAL KNEE replacements Peptic reflux disease (08/10/08) Peripheral neuralgia Peripheral neuropathy Phimosis Presbyopia (10/22/13) Pterygium (08/10/08) LEFT EYE Regular astigmatism (10/22/13) Sensorineural hearing loss, bilateral (09/05/17) Tubular adenoma Tubular and tubulovillous adenoma 2011 --suggested repeat 2017 Type 2 diabetes mellitus Ulcer of hermosillo limited to breakdown of skin Umbilical hernia (08/18/12) Ureterolithiasis Urgency of urination (01/03/16) Urinary tract infection UTI (urinary tract infection) Varicose veins of lower extremity (08/10/08) Venous insufficiency Venous insufficiency (chronic) (peripheral) Surgical History History of transurethral destruction of bladder lesion Hx of total knee arthroplasty Pt reports he has had a left and right knee repacement. Pt doesnt remember when and thinks he had it done at [facility] [place] Fundoplication Repair of umbilical hernia Laparoscopic Aviva-en-y surgery for weight loss S/P cholecystectomy (~01/04/21) acute hemorrhagic cholecystitis and xanthogranulomatous inflammation S/P colonoscopy Haddad-2011- tubular and tubulovillous polyps [place]- 2019- sessile serrated with low grade dysplacia, tubullovillous with high grade dysplacia and tubular adenomas S/P partial colectomy (~05/09/20) Status post abdominoplasty (05/23/16) Status post cholecystectomy Status post tonsillectomy Status post total knee replacement B/L Vasectomy Family History Mother Cancer Father Heart disease Sister Cancer Sister No problems noted. Brother No problems noted. Brother No problems noted. Brother No problems noted. Son No problems noted. Son No problems noted. Son No problems noted. Social History Smoking/Tobacco Use Status: Never Second Hand Exposure: Yes Smoking risk assessment performed?: Yes Alcohol Intake: never Drug use: Never Substance use type: does not use Caregiver/Support person: No Household members: other Details: son Housing: apartment Communication Needs: None Education Level: high school Do you need help understanding health information?: Never Pets and animals: No Do you think of yourself as: straight/heterosexual Current gender identity: male What is your relationship status?: How often do you talk on the phone with friends or family?: once per week How often do you get together with friends or relatives?: decline to answer How often do you attend confucianist or hinduism services?: decline to answer Do you belong to any clubs or organized social groups?: no Panel score (0-1 are the most socially isolated patients): 0 What type of physical activity do you participate in: walking Duration: 15-30 minutes/day Frequency: 1-2 times per week Velia/Yazidism: Buddhism Special velia needs: No Seatbelt use: always Helmet use: No Drive intox or ride w/intox transit bus driver: No Do you feel safe at home: Yes Do you feel safe in your relationship?: Yes Course Vital Signs Vital signs: Vital Signs Temperature 37.1 C 05/02/23 15:15 Pulse 77 05/02/23 15:15 Respiratory Rate 16 05/02/23 15:15 Blood Pressure 136/96 H 05/02/23 15:15 Pulse Oximetry 98 05/02/23 15:15 Temperature 36.6 C 05/02/23 16:30 Temperature Source Oral 05/02/23 16:30 Pulse 82 05/02/23 16:30 Respiratory Rate 16 05/02/23 16:30 Respiratory Effort Normal 05/02/23 17:26 Blood Pressure 160/97 H 05/02/23 16:30 Pulse Oximetry 98 05/02/23 16:30 Oxygen Delivery Method Room Air 05/02/23 16:30 Oxygen Flow Rate 0 05/02/23 16:30 Lab/Test Results Lab/Test Results: Laboratory Tests Range/Units 05/02/23 05/02/23 15:45 15:45 WBC (4.4-10.8) 10^3/uL 6.78 RBC (4.36-5.78) 10^6/uL 4.21 L Hgb (13.5-17.5) g/dL 12.0 L Hct (40.0-50.0) % 36.4 L MCV (80-95) fL 87 MCH (27.0-33.0) pg 28.5 MCHC (32.0-36.0) % 33.0 RDW (11.8-14.1) % 14.4 H Plt Count (130-400) 10^3/uL 248 MPV (8.0-11.0) fL 8.8 Immature Gran % 0.3 Neutrophils % 71.5 Lymphocytes % 15.0 Monocytes % 11.1 Eosinophils % 1.8 Basophils % 0.3 Nucleated RBC % (0.0-0.3) % 0.0 Absolute Neutrophils (1.2-6.7) 10^3/uL 4.85 Absolute Lymphocytes (1.2-3.4) 10^3/uL 1.02 L Absolute Monocytes (0.1-0.8) 10^3/uL 0.75 Absolute Eosinophils (0.0-0.7) 10^3/uL 0.12 Absolute Basophils (0.0-0.2) 10^3/uL 0.02 Sodium (136-145) mmol/L 142 Potassium (3.5-5.1) mmol/L 4.1 Chloride (98-107) mmol/L 106 Carbon Dioxide (21.0-32.0) mmol/L 25.3 Anion Gap (3-11) mmol/L 10.7 BUN (7-18) mg/dL 31 H Creatinine (0.70-1.30) mg/dL 1.5 H Est GFR (CKD-EPI 2020) (mL/min/1.73m2) 48.85 Glucose (74-106) mg/dL 121 H Calcium (8.5-10.1) mg/dL 9.1 Magnesium (1.8-2.4) mg/dL 1.6 L Total Bilirubin (0.2-1.0) mg/dL 0.7 AST (15-37) U/L 10 L ALT (16-63) U/L 18 Alkaline Phosphatase (46-116) U/L 97 Troponin I (<or=60) ng/L < 50 Total Protein (6.4-8.2) g/dL 7.1 Albumin (3.4-5.0) g/dL 3.4 TSH (0.36-3.74) uIU/mL 2.03
--- NOTE | 2023-05-02 18:56 | W.EDPROG ---
Date of service: 05/02/23 Time of Service: 18:56 Medical Decision Making See previous Paper chart. Pt is a 72 year old male with hx of CVA 4 months ago, was sent here by Dr. Massey with seizure-like activity, he is at baseline with global aphasia. 191: Spoke with Dr. Stuart he agrees to accept patient for new onset Seizure and observation. Pending UA, instructed staff command and control officer to In and out cath, patient did urinate in his depends recently per RN report. Urinalysis shows moderate blood, moderate leukocytes 10-20 RBCs 10-20 WBCs. Culture pending. UDS shows positive for benzodiazepines. Patient did receive these upon arrival. Patient transported up to floor in hemodynamically stable condition. Medical Records Medical records reviewed: Yes I reviewed the patient's medical records. Lab Data Lab results reviewed: Yes I reviewed the patient's lab results. Labs: Laboratory Tests Range/Units 05/02/23 05/02/23 15:45 15:45 WBC (4.4-10.8) 10^3/uL 6.78 RBC (4.36-5.78) 10^6/uL 4.21 L Hgb (13.5-17.5) g/dL 12.0 L Hct (40.0-50.0) % 36.4 L MCV (80-95) fL 87 MCH (27.0-33.0) pg 28.5 MCHC (32.0-36.0) % 33.0 RDW (11.8-14.1) % 14.4 H Plt Count (130-400) 10^3/uL 248 MPV (8.0-11.0) fL 8.8 Immature Gran % 0.3 Neutrophils % 71.5 Lymphocytes % 15.0 Monocytes % 11.1 Eosinophils % 1.8 Basophils % 0.3 Nucleated RBC % (0.0-0.3) % 0.0 Absolute Neutrophils (1.2-6.7) 10^3/uL 4.85 Absolute Lymphocytes (1.2-3.4) 10^3/uL 1.02 L Absolute Monocytes (0.1-0.8) 10^3/uL 0.75 Absolute Eosinophils (0.0-0.7) 10^3/uL 0.12 Absolute Basophils (0.0-0.2) 10^3/uL 0.02 Sodium (136-145) mmol/L 142 Potassium (3.5-5.1) mmol/L 4.1 Chloride (98-107) mmol/L 106 Carbon Dioxide (21.0-32.0) mmol/L 25.3 Anion Gap (3-11) mmol/L 10.7 BUN (7-18) mg/dL 31 H Creatinine (0.70-1.30) mg/dL 1.5 H Est GFR (CKD-EPI 2020) (mL/min/1.73m2) 48.85 Glucose (74-106) mg/dL 121 H Calcium (8.5-10.1) mg/dL 9.1 Magnesium (1.8-2.4) mg/dL 1.6 L Total Bilirubin (0.2-1.0) mg/dL 0.7 AST (15-37) U/L 10 L ALT (16-63) U/L 18 Alkaline Phosphatase (46-116) U/L 97 Troponin I (<or=60) ng/L < 50 Total Protein (6.4-8.2) g/dL 7.1 Albumin (3.4-5.0) g/dL 3.4 TSH (0.36-3.74) uIU/mL 2.03 Discharge Plan Disposition Patient Disposition: Admit to [facility] Condition: Stable Discharge Details Clinical Impression: New onset seizure without head trauma Admit Date/Time: 05/02/23 19:17 Admit Provider: Carmelo Nunn Attending Provider: Carmelo Nunn Primary Care Provider: [facility] ED Provider: Vanessa Hebert
--- NOTE | 2023-05-02 19:14 | W.PM.HP.N ---
Date of service: 05/02/23 Time of Service: 19:14 Assessment and Plan Assessment and plan (1) Seizure: Start date: 05/02/23 Status: Acute Assessment and plan: This is a 72-year-old gentleman who had a CVA several months ago now manifesting focal seizures with Diastat (Valium) given to the patient at the PCP office. He has benefits no further seizures at the hospital and is being observed closely awaiting repeat MRI and echocardiogram with bubble study. He does have chronic atrial fibrillation and is on Eliquis. This treatment is being continued on his hospital stay. We will be allowing permissive hypertension in case he has a new stroke. He is a full code. 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 MRI of the brain. Neurology is in consultation. (3) Atrial fibrillation: Assessment and plan: Patient appears to be regular rhythm most of the time and is on Eliquis. This will be continued with monitoring of blood pressure while treating heart rate control avoiding hypotension with possible acute CVA. Qualifiers: Atrial fibrillation type: unspecified Qualified Code(s): I48.91 - Unspecified atrial fibrillation (4) UTI (urinary tract infection): Start date: 05/02/23 Assessment and plan: Patient does have recurrent urinary problems and urine appeared to have possible UTI with Rocephin initiated and urine culture pending. Follow-up on urine culture and adjust antibiotic therapy accordingly. This could contribute to patient's stress with lowering seizure threshold. Qualifiers: Urinary tract infection type: site unspecified Hematuria presence: with hematuria Qualified Code(s): N39.0 - Urinary tract infection, site not specified; R31.9 - Hematuria, unspecified (5) Type 2 diabetes mellitus: Assessment and plan: Glucometer measurements with short acting insulin coverage while in the hospital. Hold outpatient medical therapy for now (6) Essential hypertension: Assessment and plan: Continue outpatient medical management adjusting to avoid hypotension with possible acute CVA. History of Present Illness History of Present Illness Chief Complaint: Focal seizures in PCP office treated with Valium per Diastat Narrative: This is a 72-year-old male patient who was in his PCPs office when he had seizure-like activity focal to his face and upper extremity without laterality mentioned in ED note. Patient unable to give further history. He had several of these episodes and was treated with Valium per rectum in the PCPs office with mention of patient receiving Versed. He has had no further seizure activity and was brought to the hospital for evaluation with no acute findings prompting lowering of seizure threshold. Patient did have a previous CVA in the last several months. This was in the left middle cerebral artery artery distribution with the patient having global aphasia. He was asleep in the room when I attempted to interview him with the nurse stated he was awake and talking previously though he does have the history of aphasia. He is a full code. Review of Systems Narrative: 13 point review of systems otherwise unobtainable with patient not speaking during exam with history of aphasia. 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 denies this Atopic conjunctivitis (10/22/13) Atrial fibrillation Benign prostatic hyperplasia (02/25/13) Bladder cancer Carpal tunnel syndrome Chronic anticoagulation Chronic venous stasis Creatinine elevation Dementia Depressive disorder (02/25/13) Diabetes mellitus (02/25/13) Diabetic leg ulcer Elevated WBCs Essential hypertension (06/24/13) Frequency of micturition (01/03/16) Glaucoma (10/22/13) B/L Gross hematuria History of depression Hyperglycemia Hyperlipidemia (02/25/13) Hypermetropia (10/22/13) Hypertension Hypogonadism Idiopathic peripheral neuropathy Iron deficiency Low back pain (08/10/08) Noncompliance Nuclear senile cataract (01/16/14) Obesity (08/10/08) Aviva-en-y 02/2014 Olecranon bursitis CARLOS A on CPAP Osteoarthritis (08/10/08) BILATERAL KNEE replacements Peptic reflux disease (08/10/08) Peripheral neuralgia Peripheral neuropathy Phimosis Presbyopia (10/22/13) Pterygium (08/10/08) LEFT EYE Regular astigmatism (10/22/13) Sensorineural hearing loss, bilateral (09/05/17) Tubular adenoma Tubular and tubulovillous adenoma 2011 --suggested repeat 2017 Type 2 diabetes mellitus Ulcer of hermosillo limited to breakdown of skin Umbilical hernia (08/18/12) Ureterolithiasis Urgency of urination (01/03/16) Urinary tract infection UTI (urinary tract infection) Varicose veins of lower extremity (08/10/08) Venous insufficiency Venous insufficiency (chronic) (peripheral) Surgical History History of transurethral destruction of bladder lesion Hx of total knee arthroplasty Pt reports he has had a left and right knee repacement. Pt doesnt remember when and thinks he had it done at [facility] Ronnell Fundoplication Repair of umbilical hernia Laparoscopic Aviva-en-y surgery for weight loss S/P cholecystectomy (~01/04/21) acute hemorrhagic cholecystitis and xanthogranulomatous inflammation S/P colonoscopy [facility]-2011- tubular and tubulovillous polyps [facility]- 2019- sessile serrated with low grade dysplacia, tubullovillous with high grade dysplacia and tubular adenomas S/P partial colectomy (~05/09/20) Status post abdominoplasty (05/23/16) Status post cholecystectomy Status post tonsillectomy Status post total knee replacement B/L Vasectomy Family History Mother Cancer Father Heart disease Sister Cancer Sister No problems noted. Brother No problems noted. Brother No problems noted. Brother No problems noted. Son No problems noted. Son No problems noted. Son No problems noted. Social History Smoking/Tobacco Use Status: Never Second Hand Exposure: Yes Smoking risk assessment performed?: Yes Alcohol Intake: never Drug use: Never Substance use type: does not use Caregiver/Support person: No Household members: other Details: son Housing: house Communication Needs: None Education Level: high school Do you need help understanding health information?: Never Pets and animals: No Do you think of yourself as: straight/heterosexual Current gender identity: male What is your relationship status?: How often do you talk on the phone with friends or family?: once per week How often do you get together with friends or relatives?: decline to answer How often do you attend mandaeism or oriental orthodox services?: decline to answer Do you belong to any clubs or organized social groups?: no Panel score (0-1 are the most socially isolated patients): 0 What type of physical activity do you participate in: walking Duration: 15-30 minutes/day Frequency: 1-2 times per week Velia/Voodoo: Sabianism Special velia needs: No Seatbelt use: always Helmet use: No Drive intox or ride w/intox stock driver: No Do you feel safe at home: Yes Do you feel safe in your relationship?: Yes Meds Allergies and Home Medications Allergies Allergy/AdvReac Type Severity Reaction Status Date / Time No Known Allergies Allergy Verified 03/12/23 13:46 Home Medications Medication Instructions Recorded Confirmed Type calcium carbonate 600 mg-vitamin 2 ea PO DAILY 03/29/14 03/12/23 History D3 10 mcg (400 unit) tablet (Calcium 600 + D(3)) cyanocobalamin (vitamin B-12) 500 500 mcg PO DAILY 03/29/14 03/12/23 History mcg tablet (Vitamin B-12) multivitamin (Daily Vitamin tablet) 2 ea PO DAILY 03/29/14 03/12/23 History ascorbic acid (vitamin C) 1,000 mg 1,000 mg PO DAILY 01/03/18 03/12/23 History tablet,extended release (Vitamin C ER) omega-3 fatty acids 1,000 mg 2,400 mg PO DAILY 10/20/18 03/12/23 History capsule (Fish Oil Concentrate) ferrous sulfate, dried 159 mg (45 159 mg PO DAILY 07/28/19 03/12/23 History mg iron) tablet,extended release (iron ER) finasteride 5 mg tablet 5 mg PO DAILY #90 tabs 04/27/20 03/12/23 Rx lisinopril 5 mg tablet 5 mg PO DAILY #90 tab-caps 04/27/20 03/12/23 Rx dapagliflozin propanediol 10 mg 10 mg PO DAILY #90 tabs 11/11/20 03/12/23 Rx tablet (Farxiga) lovastatin 20 mg tablet 20 mg PO DAILY #90 tab-caps 01/12/21 03/12/23 Rx nystatin 100,000 unit/gram topical 1 applic topical BID inguinal rash 02/03/21 03/12/23 Rx cream #30 grams furosemide 20 mg tablet 40 mg PO DAILY 06/01/21 03/12/23 History tamsulosin 0.4 mg capsule (Flomax) 0.4 mg PO DAILY #10 caps 06/01/21 05/03/23 Rx triamcinolone acetonide 0.1 % 1 applic topical DAILY 06/01/21 03/12/23 History topical ointment diltiazem HCl 300 mg capsule,24 300 mg PO DAILY 01/18/22 03/12/23 History hr,extended release (Tiadylt ER) insulin glargine 100 unit/mL 10 unit subcut QPM 01/18/22 03/12/23 History subcutaneous solution (Lantus U-100 Insulin) semaglutide 7 mg tablet 7 mg PO DAILY 01/18/22 03/12/23 History metformin 1,000 mg tablet 1,000 mg PO BID 01/23/22 03/12/23 History phenazopyridine 200 mg tablet 200 mg PO TID PRN pain #20 tabs 02/26/22 03/12/23 Rx (Pyridium) apixaban 5 mg tablet (Eliquis) 5 mg PO BID #180 tabs 07/20/22 05/03/23 Rx levothyroxine 50 mcg tablet 50 mcg PO DAILY 12/03/22 03/12/23 History acetaminophen 325 mg capsule 650 mg PO ONCE PRN 12/31/22 05/03/23 History atorvastatin 40 mg tablet 40 mg PO DAILY 12/31/22 05/03/23 History ciprofloxacin HCl 250 mg tablet 250 mg PO BID 12/31/22 05/03/23 History (Cipro) docusate sodium 100 mg capsule 100 mg PO DAILY 12/31/22 03/12/23 History (Colace) insulin lispro 100 unit/mL 1 sliding scale dose subcut 12/31/22 05/03/23 History subcutaneous pen (Humalog KwikPen USEASDIRECTD (U-100) Insulin) sennosides 8.6 mg capsule (senna) 8.6 mg PO DAILY 12/31/22 03/12/23 History diltiazem HCl 60 mg tablet 60 mg PO BID 04/29/23 05/03/23 History metoprolol tartrate 50 mg tablet 50 mg PO BID 04/29/23 05/03/23 History Exam Narrative Exam Narrative: General: Patient appears older than stated age, lying in bed with eyes closed which are open easily but not responding verbally. He appears asleep. Not oriented to person place or time during exam. In no acute distress. HEENT: Normocephalic, eyes with pupils equal and react to light symmetrically, extraocular movement intact and sclera anicteric. Oropharynx with dry mucosa. Neck: Supple without JVD. Lungs: Fair aeration with no focalizing rales or rhonchi examining anterior lung leyva. Heart: Irregular rhythm with normal rate, no appreciable murmurs or gallops. Abdomen: Obese contour, soft and nontender to palpation with no palpable hepatosplenomegaly. Genitalia/rectal: Exam deferred. Extremities: Without clubbing, cyanosis or grossly pitting edema with nonpitting edema over lower extremities and osteoarthritic changes of joints. Skin: Pale, warm and dry. Neuro: Cranial nerves II through XII grossly intact. Patient appears to move all extremities well. No tremors. No Babinski's. Psych: Patient is not easily aroused to assess affect and mood but nurse reports normal affect and mood. No abnormal thought processes manifested to nurse. Remote and recent memory not testable. Results Imaging Imaging Studies: Exam(s) CT HEAD WO CLINICAL HISTORY: ? . ? TECHNIQUE:? Imaging Protocol: Axial computed tomography images with coronal and sagittal reformatted images were created and reviewed COMPARISON:? CT CT HEAD WO from 04/06/2023 FINDINGS: Ventricles and Extra axial spaces: Normal in size and morphology for the patient's age. Hemorrhage: None. Cerebral parenchyma: There is an old infarct seen in the watershed area between the left frontal parietal lobes which appears stable.? No acute territorial infarct is seen.? Dystrophic calcifications are again seen in the basal ganglia bilaterally.? Midline shift: None. Brainstem/Cerebellum: Normal. Calvarium: Normal. Visualized Paranasal sinuses/Mastoids: Clear. Soft Tissues: Unremarkable. IMPRESSION: 1. No acute intracranial process. Exam(s) XR CHEST 2V PA ? LATERAL TECHNIQUE:? 2D digital imaging was performed of the chest.? Two images were obtained.? PA and lateral views were obtained. COMPARISON:? CR,XR XR CHEST 1V IN DI DEPT from 04/06/2023 FINDINGS: MEDIASTINUM: Normal.? HEART: Unchanged cardiomegaly.? PULMONARY VASCULATURE: Normal. LUNGS: Clear. ? PLEURAL SPACE: No pleural effusion or pneumothorax. BONE:Within normal limits for the patient's age.? There again seen prominence of the articulations between the 1st rib and the sternum bilaterally. OTHER FINDINGS:Normal.? IMPRESSION: No acute pulmonary findings. Labs 05/03/23 05:50 05/02/23 15:45 Labs: Laboratory Results - last 24 hr 05/02/23 05/02/23 15:45 15:45 WBC 6.78 RBC 4.21 L Hgb 12.0 L Hct 36.4 L MCV 87 MCH 28.5 MCHC 33.0 RDW 14.4 H Plt Count 248 MPV 8.8 Immature Gran % 0.3 Neutrophils % 71.5 Lymphocytes % 15.0 Monocytes % 11.1 Eosinophils % 1.8 Basophils % 0.3 Nucleated RBC % 0.0 Absolute Neutrophils 4.85 Absolute Lymphocytes 1.02 L Absolute Monocytes 0.75 Absolute Eosinophils 0.12 Absolute Basophils 0.02 Sodium 142 Potassium 4.1 Chloride 106 Carbon Dioxide 25.3 Anion Gap 10.7 BUN 31 H Creatinine 1.5 H Est GFR (CKD-EPI 2020) 48.85 Glucose 121 H Calcium 9.1 Magnesium 1.6 L Total Bilirubin 0.7 AST 10 L ALT 18 Alkaline Phosphatase 97 Troponin I < 50 Total Protein 7.1 Albumin 3.4 TSH 2.03 Last Vital Signs Temp 36.6 C 05/02/23 16:30 Pulse 75 05/02/23 17:16 Resp 18 05/02/23 18:50 BP 156/130 H 05/02/23 17:30 Pulse Ox 98 05/02/23 19:00 Time Spent Time spent with Patient: >75 minutes Time was spent: preparing to see the patient(eg.review tests), obtaining and/or reviewing separately otained hiistory, ordering medications,tests, procedures, referring, communicating with other health home care chaplain, indepentently interpreting results and care coordination
[2023-05-02 19:40] LABS: Bilirubin Negative (Negative); Blood Moderate (Negative); Clarity Sl Cloudy (Clear); Glucose Negative (Negative); Ketones Negative (Negative); Leukocyte Esterase Moderate (Negative); Nitrite Negative (Negative); Urobilinogen 0.2 mg/dL (Up to 0.2)
[2023-05-02 19:46] LABS: Bacteria Few HPF (Negative); C & S Indicated? Yes; Casts Negative LPF (Negative); Crystals Negative HPF (Negative); Epithelial Cells Rare HPF (Negative); Mucus Negative (Negative)
[2023-05-02 19:50] LABS: *AMPHETAMINES SCREEN URINE Negative (Negative); *BARBITURATES SCREEN URINE Negative (Negative); *BENZODIAZEPINES SCREEN URINE Positive (Negative); Cannabinoids THC Negative (Negative); Cocaine Screen,Urine Negative (Negative); METHADONE URINE SCREEN Negative (Negative); OPIATES URINE SCREEN Negative (Negative)
[2023-05-02 19:52] LABS: Tricyclic Antidepressants Negative (Negative)
[2023-05-02 20:30] LABS: Troponin I < 50 ng/L (<or=60)
[2023-05-02] MEDS: dilTIAZem 60 MG TAB PO (22:36)
[2023-05-02] MEDS: Apixaban 5 MG TAB PO (22:37)
[2023-05-02] MEDS: Atorvastatin 40 MG TAB PO (22:37)
[2023-05-02] MEDS: Metoprolol 25 MG TAB PO (22:37)
[2023-05-02] MEDS: levETIRAcetam 250 MG TAB 500 MG PO (22:37)
[2023-05-03] VITALS (46 sets, daily range): BP systolic 80–133; BP diastolic 45–99; PULSE 54–123; RESP 14–25; TEMP 35.1–36.5; O2SAT 90–98
[2023-05-03 00:37] LABS: Troponin I < 50 ng/L (<or=60)
[2023-05-03] MEDS: Acetaminophen 325 MG TAB PO (03:11)
[2023-05-03] MEDS: dilTIAZem 60 MG TAB PO (03:12)
[2023-05-03] MEDS: Metoprolol 25 MG TAB PO (03:12)
[2023-05-03] MEDS: Levothyroxine 50 MCG TAB PO (06:30)
[2023-05-03 06:38] LABS: HGB 11.3 g/dL (13.5-17.5); MCH 28.6 pg (27.0-33.0); MCHC 33.2 % (32.0-36.0); MCV 86 fL (80-95); MPV 9.2 fL (8.0-11.0); Platelet Count 236 10^3/uL (130-400); RBC 3.95 10^6/uL (4.36-5.78); RDW 14.2 % (11.8-14.1); RDW-SD 44.9 fL; WBC 6.98 10^3/uL (4.4-10.8)
[2023-05-03 07:19] LABS: ALT 15 U/L (16-63); AST 8 U/L (15-37); Albumin 2.9 g/dL (3.4-5.0); Alkaline Phosphatase 92 U/L (46-116); BUN 24 mg/dL (7-18); Bilirubin, Total 0.8 mg/dL (0.2-1.0); CREATININE 1.3 mg/dL (0.70-1.30); Calcium 8.8 mg/dL (8.5-10.1); Chloride 106 mmol/L (98-107); Estimated GFR 58.01 (mL/min/1.73m2); Glucose 140 mg/dL (74-106); Magnesium 1.4 mg/dL (1.8-2.4); Potassium 3.8 mmol/L (3.5-5.1); Sodium 142 mmol/L (136-145); Total Protein 6.2 g/dL (6.4-8.2)
--- NOTE | 2023-05-03 07:32 | NUR.NOTE ---
RN secures dressing on right AC IV.Nursing Note:
[2023-05-03] MEDS: Apixaban 5 MG TAB PO ×2 (07:50→20:04)
[2023-05-03] MEDS: Ascorbic Acid 500 MG TAB 1000 MG PO (07:51)
[2023-05-03] MEDS: Finasteride 5 MG TAB PO (07:55)
[2023-05-03] MEDS: Lisinopril 10 MG TAB PO (07:57)
[2023-05-03] MEDS: Cyanocobalamin 500 MCG TAB PO (07:58)
[2023-05-03] MEDS: levETIRAcetam 250 MG TAB 500 MG PO ×2 (07:59→20:04)
--- NOTE | 2023-05-03 08:08 | RESPIRATORY ---
Spoke with patient's son to inquire about CARLOS A diagnosis and home unit (in 2019 we had it noted that patient had a [employer]Station through [facility] [place] with a CPAP of 15). Patient's son advised his father hasn't used this in a couple of years and was only prescribed it for [employer] licensing requirements.
--- NOTE | 2023-05-03 08:14 | NUR.NOTE ---
Patient is set up with breakfast tray and patient begins feeding himself. Thus far patient is nonverbal but communicative through nods of his head and use of his hands. RN speaks to Respiratory therapist about contacting patient's son who will answer her questions regarding patient's use or not of CPAP. Respiratory therapist spoke with son who indicated patient is no longer using CPAP at home.Nursing Note:
--- NOTE | 2023-05-03 08:34 | DI.US_ITS ---
APPROVED REPORT EXAM: Comprehensive 2D, Doppler, and color-flow Echocardiogram Patient Location: Out-Patient Net Development Manager: Jomar Smith RDMS, RVT Indications: afib with CVA, bubble study Echo Enhancing Agent Indication: Rule out Shunt Agent(s) / Amount(s) Used: Agitated Saline 20.0 cc Comments: Contrast study was performed with 2 IV injections of 10ccs of agitated normal saline, at re st and with incomplete cough. Patient was unable to cooperate with maneuvers. Other Information Technically limited study due to inability to position patient, patient inability to perform breathii ng techniques. Conclusion Normal left ventricular wall thickness and chamber size. Ejection fraction is borderline at 50 to 55 %. No segmental wall motion abnormalities are noted Moderately dilated right ventricle with normal systolic function Both atria are severely dilated Aortic valve is sclerotic and probably trileaflet with trivial regurgitation Mild mitral annular calcification, mild mitral regurgitation Normal tricuspid valve with moderate regurgitation. Estimated right ventricular systolic pressure is 22 mmHg No intracardiac shunting is identified Patient is in atrial fibrillation throughout the study, rate is controlled Wall motion Left Ventricle The left ventricle is normal size. Left ventricular systolic function is borderline There is normal l eft ventricular wall thickness. There are no segmental wall motion abnormalities Saline bubble contra st intravenous injection is inconclusive due to patient's inability to cooperate with maneuvers. LVEF is50-55%. Right Ventricle Right ventricle is moderately dilated. Right ventricular systolic function is grossly normal. The RVS P is 22.5 mmHg. Atria Left atrium is severely dilated. Right atrium is severely dilated. Saline bubble contrast intravenous injection does not demonstrate intracardiac shunting Aortic Valve Aortic valve is sclerotic Aortic valve is probably trileaflet. There is no aortic valvular stenosis. Trivial aortic regurgitation. Mitral Valve Mild mitral annular calcification. No evidence of mitral valve stenosis. Mild mitral regurgitation. Tricuspid Valve The tricuspid valve is normal in structure. There is no tricuspid valve stenosis. Moderate tricuspid regurgitation. Pulmonic Valve Pulmonic valve is not well visualized. There is no pulmonic valvular stenosis. There is no pulmonic v alvular regurgitation. Great Vessels The aortic root is normal in size. The ascending aorta is normal in size. Aortic arch is not well vis ualized. Due to poor image quality, the IVC could not be assessed. Pericardium Technically limited subcostal imaging. 2D Dimensions IVSD d PLAX 0.82 cm M: 0.6-1.2 LV Vol A2C d MOD 103.8 mL LVPW d PLAX 0.84 cm M: 0.6 - 1.2 LV Vol A4C d MOD 99.6 mL LVID d PLAX 4.74 cm M: 4.2 - 5.8 LA vol/ BSA A2C s A-L 66.6 mL/m2 LVDs 3.65 cm M: 2.5 - 4.0 LA vol/ BSA A4C s A-L 73.3 mL/m2 Ao Root d 2.97 cm M: 3.1 - 3.7 LA Vol/ BSA Biplane s A-L 70.2 mL/m2 Ao Asc Diam d 2.88 cm M: 2.6 - 3.4 LA Area A4C s MOD 35.63 cm2 LV EF Teichholz 44.7 % LA Area A2C s MOD 33.80 cm2 LVEF (Hargrove's) 45.85 % M: 52 - 72 LV EF A4C MOD 50.0 % LV Volume 79.16 mL M: 62 - 150 LV EF A2C MOD 42.4 % LV Volume Index 41.22 mL/m2 M: 34 - 74 LV EF Biplane MOD 45.8 % LV Vol Biplane MOD 104.0 mL SV 47.70 mL FS 22.15 % SV Index 24.88 mL/m2 M-Mode TAPSE 1.74 cm (M/F) >1.7 LV Diastology MV E' medial 0.099 (>0.07 m/s) MV E Vmax 0.87 (0.4-1.3 m/s) LV E/e MED 8.75 (<14) MV E' lateral 0.118 (>0.1 m/s) LV E/e LAT 7.30 (<14) MV E/E' medial 8.79 MV E/E' lateral 7.33 Aortic Valve LVOT Area 3.00 cm2 AoV Area Vmax 2.21 cm2 LVOT Vmax 1.16 m/s AoV Area/ BSA (Vmax) 1.15 cm2/m2 LVOT Mean Jose David. 0.72 m/s RHYS Mean Jose David. 1.95 cm2 LVOT Peak Grad 5.4 mmHg RHYS Mean Jose David. Index 1.02 cm2/m2 LVOT Mean Grad 2.5 mmHg AR DT 3967 msec LVOT VTI 0.199 m AR PHT 1150 msec LVOT Diam s 1.95 cm AoV Vmax 1.57 m/s Velocity Ratio 0.74 AoV Mean Jose David. 1.10 m/s AoV Peak Grad 9.9 mmHg LVOT SV 59.79 mL AoV Mean Grad 5.4 mmHg AoV VTI 0.244 m AoV Area VTI 2.45 cm2 AoV Area/ BSA (VTI) 1.28 cm/m2 Mitral Valve MV DT 223 (160-240 msec) MV PHT 65 msec MV Area PHT 3.41 cm2 Pulmonary Valve PV Vmax 0.90 (0.5-1.5 m/s) RVOT Peak Gr. 1.07 mmHg PV Peak Grad 3.2 mmHg RVOT Mean Gr. 0.50 mmHg PV Mean Grad 1.8 mmHg RVOT VTI 0.086 m PV VTI 0.162 m RVOT Vmax 0.52 m/s Tricuspid Valve TR Peak Grad 19.4 mmHg TR Vmax 2.21 m/s RA Pressure 3.00 mmHg RVSP (TR) 22.5 mmHg
[2023-05-03] MEDS: cefTRIAXone 1 GM/50 ML BAG IVPB (09:02)
--- NOTE | 2023-05-03 09:03 | NUR.NOTE ---
EEG is commenced in room.Nursing Note:
[2023-05-03] MEDS: Tamsulosin 0.4 MG CAPCR PO (09:04)
[2023-05-03] MEDS: Multivitamin TAB 2 TAB PO (09:06)
[2023-05-03] MEDS: Calcium 600mg/Vit D 200U TAB 2 TAB PO (09:08)
--- NOTE | 2023-05-03 09:32 | PDOC.CMIN ---
Date of service: 05/03/23 Time of Service: 09:33 Care Management Initial Assmt Initial Assessment REASON FOR HOSPITALIZATION:: seizure PREVIOUS FUNCTIONAL STATUS/SOCIAL/FAMILY SUPPORTS:: Eugene lives in an apartment in [place] with his son Rip. He does not currently receive any community services but does attend outpatient physical therapy. Rip has recently been approved for [facility] and Rip is going to be his paid caregiver. He needs some assistance with ADLs which Rip provides. CURRENT FUNCTIONAL STATUS:: Eugene was sitting up in a chair when CM met with him. He was smiling and maintained good eye contact. Eugene is aphasic so was unable to answer many questions with words. He was able to nod yes or no appropriately and did tell CM that he lives with his son. CM was able to speak to Rip who provided information about the [facility] and Eugene' ability to perform ADLs. ADVANCE DIRECTIVES:: On file. States he does not want CPR. Carmelo WEI Has patient been provided with info about the portal/API?: Yes Did the patient sign up for the portal?: No CODE STATUS:: DNR INSURANCE COVERAGE / FINANCIAL ISSUES:: [facility] Medicare Replacement CURRENT HOME/COMMUNITY SERVICES/EQUIPMENT:: kim velez PT PRIMARY CARE PHYSICIAN:: [place] POTENTIAL DISCHARGE NEEDS:: follow up with community providers PATIENT/FAMILY EDUCATION NEEDS:: Review of discharge instructions, activity, limitations, follow up plan, discuss Ask Me Three TRANSPORTATION:: via private vehicle with son PLAN:: Anticipate Eugene will discharge home with no new services. He will follow up with with his PCP and neurology and transport with his son. CM will continue to support Eugene and assess for discharge concerns. 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 denies this Atopic conjunctivitis (10/22/13) Atrial fibrillation Benign prostatic hyperplasia (02/25/13) Bladder cancer Carpal tunnel syndrome Chronic anticoagulation Chronic venous stasis Creatinine elevation Dementia Depressive disorder (02/25/13) Diabetes mellitus (02/25/13) Diabetic leg ulcer Elevated WBCs Essential hypertension (06/24/13) Frequency of micturition (01/03/16) Glaucoma (10/22/13) B/L Gross hematuria History of depression Hyperglycemia Hyperlipidemia (02/25/13) Hypermetropia (10/22/13) Hypertension Hypogonadism Idiopathic peripheral neuropathy Iron deficiency Low back pain (08/10/08) Noncompliance Nuclear senile cataract (10/22/13) Obesity (08/10/08) Aviva-en-y 02/2014 Olecranon bursitis CARLOS A on CPAP Osteoarthritis (08/10/08) BILATERAL KNEE replacements Peptic reflux disease (08/10/08) Peripheral neuralgia Peripheral neuropathy Phimosis Presbyopia (10/22/13) Pterygium (08/10/08) LEFT EYE Regular astigmatism (10/22/13) Sensorineural hearing loss, bilateral (09/05/17) Tubular adenoma Tubular and tubulovillous adenoma 2011 --suggested repeat 2017 Type 2 diabetes mellitus Ulcer of [place]mosillo limited to breakdown of skin Umbilical hernia (08/18/12) Ureterolithiasis Urgency of urination (01/03/16) Urinary tract infection UTI (urinary tract infection) Varicose veins of lower extremity (08/10/08) Venous insufficiency Venous insufficiency (chronic) (peripheral) Surgical History History of transurethral destruction of bladder lesion Hx of total knee arthroplasty Pt reports he has had a left and right knee repacement. Pt doesnt remember when and thinks he had it done at [facility] [place] Fundoplication Repair of umbilical hernia Laparoscopic Aviva-en-y surgery for weight loss S/P cholecystectomy (~01/04/21) acute hemorrhagic cholecystitis and xanthogranulomatous inflammation S/P colonoscopy Haddad-2011- tubular and tubulovillous polyps Santiago- 2019- sessile serrated with low grade dysplacia, tubullovillous with high grade dysplacia and tubular adenomas S/P partial colectomy (~05/09/20) Status post abdominoplasty (05/23/16) Status post cholecystectomy Status post tonsillectomy Status post total knee replacement B/L Vasectomy Family History Mother Cancer Father Heart disease Sister Cancer Sister No problems noted. Brother No problems noted. Brother No problems noted. Brother No problems noted. Son No problems noted. Son No problems noted. Son No problems noted. Social History Smoking/Tobacco Use Status: Never Second Hand Exposure: Yes Smoking risk assessment performed?: Yes Alcohol Intake: never Drug use: Never Substance use type: does not use Caregiver/Support person: No Household members: other Details: son Housing: house Communication Needs: None Education Level: high school Do you need help understanding health information?: Never Pets and animals: No Do you think of yourself as: straight/heterosexual Current gender identity: male What is your relationship status?: How often do you talk on the phone with friends or family?: once per week How often do you get together with friends or relatives?: decline to answer How often do you attend confucianist or latter-day services?: decline to answer Do you belong to any clubs or organized social groups?: no Panel score (0-1 are the most socially isolated patients): 0 What type of physical activity do you participate in: walking Duration: 15-30 minutes/day Frequency: 1-2 times per week Velia/Mandaeism: Anglican Special velia needs: No Seatbelt use: always Helmet use: No Drive intox or ride w/intox taxicab driver: No Do you feel safe at home: Yes Do you feel safe in your relationship?: Yes
--- NOTE | 2023-05-03 10:43 | NUR.NOTE ---
Echocardiogram is being performed in room. Patient indicates he is feeling fine.Nursing Note:
[2023-05-03] MEDS: dilTIAZem 30 MG TAB PO ×2 (11:16→22:13)
[2023-05-03] MEDS: Normal Saline Flush 10 ML SYR IVP ×2 (11:17→18:36)
--- NOTE | 2023-05-03 11:50 | DI.MRI_ITS ---
Exam(s) MR BRAIN WO EXAM: MR BRAIN WO CLINICAL HISTORY: CVA focal to face and upper extremities TECHNIQUE: Multiplanar multisequence MRI of the brain was performed. COMPARISON: MR MR BRAIN WO from 12/03/[address] HEAD WO from 05/02/2023 FINDINGS: VENTRICLES AND EXTRA AXIAL SPACES: Normal in size and morphology for the patient's age. MIDLINE SHIFT: None. CEREBRAL PARENCHYMA: No focus of restricted diffusion to suggest acute infarct. No space-occupying le rohit identified. Old infarcts are seen in the left frontal parietal watershed region and the right ce rebellum. There are multiple areas of hyperintense signal on the T2 weighted images in the white mat ter consistent with small vessel ischemic disease. There is mild atrophy of the left hip a campus re lative to the right. HEMORRHAGE: None. BRAINSTEM/CEREBELLUM: Normal. CALVARIUM: Normal. VISUALIZED PARANASAL SINUSES/MASTOIDS:There is a mucous retention cyst or polyp in the left maxillary sinus. [place]: Normal flow void. PITUITARY GLAND: Unremarkable. OTHER FINDINGS: None. IMPRESSION: 1. Old infarcts in the left frontal parietal watershed and the right cerebellum. 2. No evidence of an acute territorial infarct. 3. Findings of small vessel ischemic disease and age-related cerebral atrophy. DATA REPOSITORY:
--- NOTE | 2023-05-03 11:57 | NUR.NOTE ---
RN returns from MRI with patient who tolerates scan very well. Patient set up with lunch tray and starts feeding himself.Nursing Note:
[2023-05-03] MEDS: Insulin Aspart 300 UNITS/3 ML PEN SC ×3 (12:41→22:13)
[2023-05-03] MEDS: Nystatin CREAM 30 GM TUBE TP ×2 (12:47→20:05)
[2023-05-03] MEDS: Triamcinolone 0.1% OINT 15 GM TUBE TP (12:53)
[2023-05-03] MEDS: MAGNESIUM SULFATE 4 GM/100 ML BAG IVPB (13:03)
--- NOTE | 2023-05-03 13:06 | PGE_ITS ---
Date of Service Date of service: 05/03/23 Time of Service: 13:07 Assessment and Plan Assessment and plan (1) Seizure: Start date: 05/02/23 Status: Acute Assessment and plan: This is a 72-year-old gentleman who had a CVA several months ago now manifesting focal seizures with Diastat (Valium) given to the patient at the PCP office. He has had no further seizures since admission. On Keppra; started at time of admission. EEG reading pending. (2) Cerebrovascular accident (CVA) involving left middle cerebral artery ter ritory: Status: Chronic Assessment and plan: Patient has CVA of left middle cerebral artery territory several months ago and does have continued aphasia; both receptive and expressive. MRI shows the old infarcts in the left frontal parietal watershed and the right cerebellum. No evidence of an acute territorial infarct. On Eliquis. (3) Atrial fibrillation: Assessment and plan: Apixiban for anticoagulation. Cont atorvastatin Cont diltiazem for rate control. Echocardiogram: EF of 55%. In afib throughout the study. No wall motion abnormalities. He was unable to cooperate with maneuvers for bubble study. Qualifiers: Atrial fibrillation type: unspecified Qualified Code(s): I48.91 - Unsp ecified atrial fibrillation (4) UTI (urinary tract infection): Start date: 05/02/23 Assessment and plan: Cx growing gram neg chandni. Cont Rocephin. This could contribute to patient's stress with lowering seizure threshold. Qualifiers: Urinary tract infection type: site unspecified Hematuria presence: with hematuria Qualified Code(s): N39.0 - Urinary tract infection, site not specified; R31.9 - Hematuria, unspecified (5) Type 2 diabetes mellitus: Assessment and plan: Glucometer measurements with short acting insulin coverage while in the hospital. Hold outpatient medical therapy for now (6) Essential hypertension: Assessment and plan: Continue outpatient medical management adjusting to avoid hypotension with possible acute CVA. (7) Discharge planning issues: Status: Resolved Assessment and plan: Full Code. Likely will return home. Last speech therapy note in chart is from 04/05. Per speech at his last visit: Will continue to trial treatment activities for further informal assessment and goals setting. Patient provides minimal input with regards to goals at this time aside from speech.? Subjective Subjective Patient reports: afebrile; denies vomiting or shortness of breath Interval history since last seen: Pt remains aphasic. He doesn't nod yes or no when asked questions but is alert and attends to conversation. Exam Narrative Exam Narrative: General: Sitting up in bed. Looks puzzled and/or furrows eye brows when asked questions. HEENT: MMM. Sclera clear. Lungs: Clear. No crackles/wheezes. Nonlabored breathing. Heart: Irregular rhythm with normal rate, no appreciable murmurs Abdomen: Obese, NT, ND, +BS Extremities: BLE with nonpitting edema. osteoarthritic changes of joints. Skin: Pale, warm and dry. No rashes. Neuro: Moves all extremities. Expressive aphasia. Psych: Affect appears anxious/concerned. Gross appearance normal. Speech is aphasic. Objective Last Vital Signs Temp 36.5 C 05/03/23 10:42 Pulse 68 05/03/23 10:42 Resp 19 05/03/23 10:42 BP 88/55 L 05/03/23 10:42 Pulse Ox 95 05/03/23 10:42 Laboratory Results - last 24 hr 05/02/23 05/02/23 05/02/23 15:45 15:45 19:28 WBC 6.78 RBC 4.21 L Hgb 12.0 L Hct 36.4 L MCV 87 MCH 28.5 MCHC 33.0 RDW 14.4 H Plt Count 248 MPV 8.8 Immature Gran % 0.3 Neutrophils % 71.5 Lymphocytes % 15.0 Monocytes % 11.1 Eosinophils % 1.8 Basophils % 0.3 Nucleated RBC % 0.0 Absolute Neutrophils 4.85 Absolute Lymphocytes 1.02 L Absolute Monocytes 0.75 Absolute Eosinophils 0.12 Absolute Basophils 0.02 Sodium 142 Potassium 4.1 Chloride 106 Carbon Dioxide 25.3 Anion Gap 10.7 BUN 31 H Creatinine 1.5 H Est GFR (CKD-EPI 2020) 48.85 Glucose 121 H Calcium 9.1 Magnesium 1.6 L Total Bilirubin 0.7 AST 10 L ALT 18 Alkaline Phosphatase 97 Troponin I < 50 Total Protein 7.1 Albumin 3.4 TSH 2.03 Urine Color Yellow Urine Clarity Sl Cloudy Urine pH 5.0 Ur Specific [place] 1.010 Urine Protein 30 H Urine Ketones Negative Urine Blood Moderate H Urine Nitrite Negative Urine Bilirubin Negative Urine Urobilinogen 0.2 Ur Leukocyte Esterase Moderate H Urine RBC 10-20 H Urine WBC 10-20 H Ur Epithelial Cells Rare Urine Crystals Negative Urine Bacteria Few Urine Casts Negative Urine Mucus Negative Ur Culture Indicated? Yes Urine Glucose Negative Urine Opiates Screen Urine Methadone Screen Ur Barbiturates Screen Ur Tricyclics Screen Ur Amphetamines Screen U Benzodiazepines Scrn Urine Cocaine Screen Ur THC Screen 05/02/23 05/02/23 05/02/23 19:28 19:31 23:30 WBC RBC Hgb Hct MCV MCH MCHC RDW Plt Count MPV Immature Gran % Neutrophils % Lymphocytes % Monocytes % Eosinophils % Basophils % Nucleated RBC % Absolute Neutrophils Absolute Lymphocytes Absolute Monocytes Absolute Eosinophils Absolute Basophils Sodium Potassium Chloride Carbon Dioxide Anion Gap BUN Creatinine Est GFR (CKD-EPI 2020) Glucose Calcium Magnesium Total Bilirubin AST ALT Alkaline Phosphatase Troponin I < 50 Cancelled Total Protein Albumin TSH Urine Color Urine Clarity Urine pH Ur Specific [place] Urine Protein Urine Ketones Urine Blood Urine Nitrite Urine Bilirubin Urine Urobilinogen Ur Leukocyte Esterase Urine RBC Urine WBC Ur Epithelial Cells Urine Crystals Urine Bacteria Urine Casts Urine Mucus Ur Culture Indicated? Urine Glucose Urine Opiates Screen Negative Urine Methadone Screen Negative Ur Barbiturates Screen Negative Ur Tricyclics Screen Negative Ur Amphetamines Screen Negative U Benzodiazepines Scrn Positive A Urine Cocaine Screen Negative Ur THC Screen Negative 05/03/23 05/03/23 05/03/23 00:12 05:50 05:50 WBC 6.98 RBC 3.95 L Hgb 11.3 L Hct 34.0 L MCV 86 MCH 28.6 MCHC 33.2 RDW 14.2 H Plt Count 236 MPV 9.2 Immature Gran % Neutrophils % Lymphocytes % Monocytes % Eosinophils % Basophils % Nucleated RBC % Absolute Neutrophils Absolute Lymphocytes Absolute Monocytes Absolute Eosinophils Absolute Basophils Sodium 142 Potassium 3.8 Chloride 106 Carbon Dioxide 25.0 Anion Gap 11.0 BUN 24 H Creatinine 1.3 Est GFR (CKD-EPI 2020) 58.01 Glucose 140 H Calcium 8.8 Magnesium 1.4 L Total Bilirubin 0.8 AST 8 L ALT 15 L Alkaline Phosphatase 92 Troponin I < 50 Total Protein 6.2 L Albumin 2.9 L TSH Urine Color Urine Clarity Urine pH Ur Specific [place] Urine Protein Urine Ketones Urine Blood Urine Nitrite Urine Bilirubin Urine Urobilinogen Ur Leukocyte Esterase Urine RBC Urine WBC Ur Epithelial Cells Urine Crystals Urine Bacteria Urine Casts Urine Mucus Ur Culture Indicated? Urine Glucose Urine Opiates Screen Urine Methadone Screen Ur Barbiturates Screen Ur Tricyclics Screen Ur Amphetamines Screen U Benzodiazepines Scrn Urine Cocaine Screen Ur THC Screen Time Spent with Patient Time Spent with Patient: 25-34 minutes Time was spent: preparing to see the patient(eg.review tests), obtaining and/or reviewing separately otained hiistory, ordering medications,tests, procedures, referring, communicating with other health residential caregiver, indepentently interpreting results and care coordination
--- NOTE | 2023-05-03 13:24 | NUR.NOTE ---
Patient sleeping after a busy morning of tests that included EEG, echocardiogram and MRI. Physical therapist to return later to work with patient.Nursing Note:
--- NOTE | 2023-05-03 13:25 | NUR.NOTE ---
Patient earlier travelled to MRI via bed and transferred to [facility] via hover mat that patient is resting on now.Nursing Note:
--- NOTE | 2023-05-03 13:36 | NUR.NOTE ---
Telephonic update given to son. Patient is to doing well.Nursing Note:
--- NOTE | 2023-05-03 14:39 | NUR.NOTE ---
Patient now up in chair. it account manager interviews patient.Nursing Note:
--- NOTE | 2023-05-03 16:50 | IN_ITS ---
PT Notes Visit Reasons: Seizure Disorder, Left CVA, CAF Physical Therapy Inpatient Initial Evaluation Date: 05/03/2023 Referring Doctor: Bari Jane MD PT Orders: PT CONSULT: Eval/Treat Precautions: Fall. Standard. Activity as tolerated. Patient Profile/Admitting Diagnosis: Eugene is a 72-year-old male with past medical history significant for CVA 4 months ago who presented to the ED on 05/02/2023 due to seizure-like activity. Patient is admitted for management of seizure, CVA, atrial fibrillation, UTI, type 2 diabetes mellitus and essential hypertension. 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 Acute kidney injury superimposed on chronic kidney disease Anxiety (08/10/08) Asbestosis (08/10/08) Asthma (07/08/12) pt. denies this Atopic conjunctivitis (10/22/13) Atrial fibrillation Benign prostatic hyperplasia (02/25/13) Bladder cancer Carpal tunnel syndrome Chronic anticoagulation Chronic venous stasis Creatinine elevation Dementia Depressive disorder (02/25/13) Diabetes mellitus (02/25/13) Diabetic leg ulcer Elevated WBCs Essential hypertension (06/24/13) Frequency of micturition (01/03/16) Glaucoma (10/22/13) B/L Gross hematuria History of depression Hyperglycemia Hyperlipidemia (02/25/13) Hypermetropia (10/22/13) Hypertension Hypogonadism Idiopathic peripheral neuropathy Iron deficiency Low back pain (08/10/08) Noncompliance Nuclear senile cataract (10/22/13) Obesity (08/10/08) Aviva-en-y? 02/2014 Olecranon bursitis CARLOS A on CPAP Osteoarthritis (08/10/08) BILATERAL KNEE replacements Peptic reflux disease (08/10/08) Peripheral neuralgia Peripheral neuropathy Phimosis Presbyopia (10/22/13) Pterygium (08/10/08) LEFT EYE Regular astigmatism (10/22/13) Sensorineural hearing loss, bilateral (09/05/17) Tubular adenoma Tubular and tubulovillous adenoma 2011 --suggested repeat 2017 Type 2 diabetes mellitus Ulcer of hermosillo limited to breakdown of skin Umbilical hernia (08/18/12) Ureterolithiasis Urgency of urination (01/03/16) Urinary tract infection UTI (urinary tract infection) Varicose veins of lower extremity (08/10/08) Venous insufficiency Venous insufficiency (chronic) (peripheral) Surgical History? History of transurethral destruction of bladder lesion Hx of total knee arthroplasty Pt reports he has had a left and right knee repacement. Pt doesnt remember when and thinks he had it done at [facility] [place] Fundoplication Repair of umbilical hernia [id number] surgery for weight lossS/P cholecystectomy (~01/04/21) acute hemorrhagic cholecystitis and xanthogranulomatous inflammation S/P colonoscopy [facility]-2011- tubular and tubulovillous polyps [facility]- 2019- sessile serrated with low grade dysplacia, tubullovillous with high grade dysplacia and tubular adenomas S/P partial colectomy (~05/09/20) Status post abdominoplasty (05/23/16) Status post cholecystectomy Status post tonsillectomy Status post total knee replacement B/L Vasectomy Social History/Home Situation: Lives with son in a private home. Son does not work and provides needed assistance for father at home. Ambulatory with FWW at home. Equipment Owned/DME: FWW Subjective: Aphasic. Denies chest pain, headache, and lightheadedness throughout session. Objective: General Observation: Seated on bedside chair. Nurse Adis anne done with self- care and grooming for patient. Mental Status: Alert and oriented as to person and place. Able to pay attention, focus, and understand instructions/conversation 75% of the time. Pain: Denies Vital Signs: HR ranged from 108-132 bpm throughout the walk ROM: Right Upper Extremity: Shoulder Flexion WFL. Shoulder abduction WFL. Elbow flexion WFL. Wrist flexion WFL. Functional opening and closing of hand WFL. Left Upper Extremity: Shoulder Flexion WFL. Shoulder abduction WFL. Elbow flexion WFL. Wrist flexion WFL. Functional opening and closing of hand WFL. Right Lower Extremity: Hip flexion lacks the last 25% of AROM. Hip abduction lacks the last 25% of AROM. Knee flexion 10 to 90 degrees. Knee extension -10 degrees. Ankle dorsiflexion unable to follow strength testing instruction but was able to demonstrate needed dorsiflexion during walking. Ankle plantarflexion WFL. Left Lower Extremity: Hip flexion WFL. Hip abduction WFL. Knee flexion WFL. Ankle dorsiflexion Ankle dorsiflexion unable to follow strength testing instruction but was able to demonstrate needed dorsiflexion during walking. Ankle plantarflexion WFL. Strength: Right Upper Extremity: Shoulder flexors 4-/5. Shoulder abductors 4-/5. Elbow flexors 4-/5. Elbow extensors 4-/5. Phytopathology Teacher weaker than R but functional. Left Upper Extremity: Shoulder flexors 4/5. Shoulder abductors 4/5. Elbow flexors 5/5. Elbow extensors 5/5. Phytopathology Teacher strong. Right Lower Extremity: Hip flexors 3-/5. Hip abductors 3-/5. Knee flexors 3-/5. Knee extensors 3-/5. Ankle dorsiflexors 3-/5. Ankle plantarflexors 4-/5. Left Lower Extremity: Hip flexors 4/5. Hip abductors 4/5. Knee flexors 4/5. Knee extensors 4/5. Ankle dorsiflexors 3/5. Ankle plantarflexors 4/5. Bed Mobility/Transfers: Sit to stand stand by assist, cues needed for hand placement Stand to sit stand by assist, cues needed for hand placement Gait: Instructed patient with level surface ambulation of 300 feet requiring stand by assist for IV pole management and wheelchair follow. Roxane decreased. Mild lean on R noted with midstance on R. Denied fatigue and shortness of breath. Balance: Static Sitting: Normal Dynamic Sitting: Normal Static Standing: Fair Dynamic Standing: Fair Special Tests: Mobility Limitations Standardized Measure [facility] AM-PAC 6 clicks Basic Mobility Inpatient Short Form: Raw Score: 23 CMS Score: 11% deficit Informed Consent/Education: Patient was instructed in purpose of PT consult and plan of care. Agreeable to proceed with established PT POC to achieve personal goals. Assessment: R-sided hemiparesis. Aphasic, able to follow single-step commands/understand simple questions 75% of the time. Patient requires the use of FWW and stand by assist of one person for safety. HR ranged from 103-132 bpm throughout the walk but patient did not report any shortness of breath nor fatigue. Unable to follow instructions for B ankle muscle strength testing. Had some moments where he had difficulty following simple commands, unsure of whether there is related hearing impairment/issue. Patient presents with clinical signs and symptoms consistent with current/admitting diagnoses that have resulted to mobility limitations, gait instability, generalized weakness, and overall ADL decline as demonstrated by the following impairment level findings: 1. Decreased strength to R UE/LE major muscle groups 2. Impaired sitting/standing balance 3. Impaired activity tolerance 4. Aphasic Impairments are contributing to the following functional limitations: 1. Difficulty with ambulation without assistive device 2. Increased completion time for mobility ADL performance 3. Increased risk for falls Patient is assessed as a 94553 moderate complexity based on the following: History: 72-year-old male with past medical history as indicated above Examination: Demonstrable impairment in strength, balance, and mobility level with underlying impairments and functional limitations as exhibited above as well as deficit score of 11% utilizing the [facility] Mobility Inpatient Short Form Presentation: Evolving Decision Makin moderate complexity Goals: Goals X1 week 1. Supine-Sit independent 2. Sit-Supine independent 3. Sit-Stand independent 4. Stand-Sit independent with FWW 5. Bed-Chair independent with FWW 6. Chair-Bed independent with FWW 7. Independent gait on level surface with use of FWW for at least 300 feet without report of pain nor dyspnea 8. Independent stair negotiation while holding onto no rails for at least 3 steps without report of pain nor dyspnea 9. Independent with home exercise program 10. Good static and dynamic standing balance/tolerance Plan of Care/Treatment Plan: 1-2x/day, 7 days/week x 1 week. Plan of care has been reviewed with the HVAC JOURNEYMAN providing the service under Physical Therapy direction. Initiate Physical Therapy intervention for pain management as needed, strengthening, bed mobility, transfers, gait, stairs, balance training, and use of assistive device. DISCHARGE RECOMMENDATIONS: [] Home with no services [] [X] Home with services. Patient will benefit from home health PT services in order to progress mobility level using least restrictive assistive ambulatory device, assess home safety, identify additional equipment needs, and establish a functional maintenance program that will increase ability of patient to remain at home. [] Home with outpatient PT [] [] SNF for continued rehabilitation [] [] [facility] [] [] SNF versus LTC based on ability to participate and progress [] TREATMENT CODE/TIME: 40020 x 20 minutes, 71542 x 15 minutes beginning at 14:42 PM. Thank you for the opportunity to participate in the care of this patient. Kenia Giordano PT, DPT, CLT [facility] [place], [place]
[2023-05-03] MEDS: Normal Saline 1,000 ML 250 ML IV (20:02)
[2023-05-03] MEDS: Atorvastatin 40 MG TAB PO (20:04)
[2023-05-03] MEDS: Metoprolol 12.5 MG TAB PO (22:12)
[2023-05-04] VITALS (25 sets, daily range): BP systolic 94–143; BP diastolic 52–86; PULSE 59–112; RESP 16–18; TEMP 35.6–36.5; O2SAT 95–100
[2023-05-04] MEDS: Acetaminophen 325 MG TAB PO (01:43)
[2023-05-04] MEDS: Normal Saline Flush 10 ML SYR IVP (01:44)
[2023-05-04] MEDS: Normal Saline 1,000 ML 100 ML IV (03:34)
[2023-05-04] MEDS: Metoprolol 12.5 MG TAB PO ×3 (05:14→20:48)
[2023-05-04] MEDS: dilTIAZem 30 MG TAB PO ×4 (05:14→20:47)
[2023-05-04] MEDS: Levothyroxine 50 MCG TAB PO (05:14)
[2023-05-04 06:18] LABS: Abs Immature Grans 0.03 10^3/uL (0.0-0.06); Absolute Basophil Count 0.02 10^3/uL (0.0-0.2); Absolute Eosinophil Count 0.16 10^3/uL (0.0-0.7); Absolute Monocyte Count 0.71 10^3/uL (0.1-0.8); Absolute Neutrophil Count 5.03 10^3/uL (1.2-6.7); Basophils % 0.3; Eosinophils % 2.2; HCT 34.3 % (40.0-50.0); Immature Grans % 0.4; Lymphocytes % 16.8; MCH 27.7 pg (27.0-33.0); MCHC 32.1 % (32.0-36.0); MCV 86 fL (80-95); MPV 8.5 fL (8.0-11.0); Monocytes % 9.9; Neutrophils % 70.4; Platelet Count 212 10^3/uL (130-400); RBC 3.97 10^6/uL (4.36-5.78); RDW 14.4 % (11.8-14.1); RDW-SD 45.6 fL; WBC 7.15 10^3/uL (4.4-10.8)
[2023-05-04 06:29] LABS: Magnesium 2.5 mg/dL (1.8-2.4)
[2023-05-04] MEDS: Insulin Aspart 300 UNITS/3 ML PEN SC ×4 (07:28→23:51)
[2023-05-04 07:33] LABS: Lab Add On Test DONE
[2023-05-04] MEDS: levETIRAcetam 250 MG TAB 500 MG PO ×2 (07:41→20:48)
[2023-05-04] MEDS: Apixaban 5 MG TAB PO ×2 (07:41→20:48)
[2023-05-04 07:42] LABS: Anion Gap 12.8 mmol/L (3-11); BUN 32 mg/dL (7-18); CO2 22.2 mmol/L (21.0-32.0); CREATININE 1.6 mg/dL (0.70-1.30); Calcium 8.1 mg/dL (8.5-10.1); Chloride 105 mmol/L (98-107); Estimated GFR 45.21 (mL/min/1.73m2); Glucose 158 mg/dL (74-106); Potassium 3.5 mmol/L (3.5-5.1); Sodium 140 mmol/L (136-145)
[2023-05-04] MEDS: cefTRIAXone 1 GM/50 ML BAG IVPB (07:42)
[2023-05-04] MEDS: Lisinopril 10 MG TAB PO (07:51)
[2023-05-04] MEDS: Tamsulosin 0.4 MG CAPCR PO (07:51)
[2023-05-04] MEDS: Finasteride 5 MG TAB PO (07:54)
[2023-05-04] MEDS: Cyanocobalamin 500 MCG TAB PO (07:54)
[2023-05-04] MEDS: Multivitamin TAB 2 TAB PO (08:37)
[2023-05-04] MEDS: Ascorbic Acid 500 MG TAB 1000 MG PO (08:38)
[2023-05-04] MEDS: Calcium 600mg/Vit D 200U TAB 2 TAB PO (08:38)
[2023-05-04] MEDS: Lactated Ringers 1,000 ML 125 ML IV (08:47)
--- NOTE | 2023-05-04 09:01 | PT.INTREAT ---
Date of service: 05/04/23 Time of Service: 09:15 PT Notes Visit Reasons: Seizure Disorder, Left CVA, CAF Inpatient Physical Therapy Treatment Note [facility] Date: 05/04/2023 PRECAUTIONS: Fall. Standard. Activity as tolerated. SUBJECTIVE: Indicated he was okay with doing standing balance and walking. Did have to go have a bladder scan between balance activities and ambulation. OBJECTIVE: PAIN: No complaints of pain offered. BED MOBILITY/TRANSFERS Sitting up in chair eating breakfast when I arrived. GAIT Assistive Device: FWW, with w/c follow. Weight bearing: Full Assist: CGA Distance: 430ft, no seated rest taken or SOB observed Deviation: mild lean to right, good controlled steps. Does required occasional instruction to push up from chair when going sit to standing and to reach for arms of chair when going stand to sit. Neuromuscular Re-Education ([id number]) Worked on standing balance prior to bladder scan. This included standing with feet together and partial tandem with eyes open x 10 seconds each and eyes closed for 5 seconds each. Also, performed rhythmic stabilization x 5-10 seconds each while in feet together and partial tandem positions. Able to perform each of these exercises without noted LOB, but did tend to reach of walker while performing standing with eyes closed activities by end of 5 seconds. ASSESSMENT: Good effort with standing balance for short durations of time. PLAN: Possibly try stair ambulation tomorrow, if able to tolerate. Continue with PT's plan of care for strengthening, bed mobility, transfers, gait, stairs, balance training, and use of FWW. TREATMENT CODE/TIME: [id number], 9:08 to 9:18 (10 minutes) and [id number] 9:35 to 9:50 (15 minutes)
--- NOTE | 2023-05-04 09:35 | DI.CT_ITS ---
Exam(s) CT RENAL COLIC WO EXAM: CT RENAL COLIC WO CLINICAL HISTORY: UTI, h/o nephrolithiasis. TECHNIQUE: Imaging Protocol: Axial computed tomography images with coronal and sagittal reformatted images were created and reviewed CONTRAST MATERIAL: Intravenous: none Oral: None COMPARISON: Prior CT scan May 2021. FINDINGS: VISUALIZED LUNG BASES: No nodules nor pleural effusions evident. Cardiomegaly. No pericardial effus ion. ABDOMEN: There is evidence of previous surgery in the proximal stomach. Possible prior bariatric surgery. Th ere is abundant food material in this proximal aspect the stomach. The [place] stomach is slightly di lated. What appears to be a pre colic Aviva limb is not dilated and there is no evidence of obstructi on at the enteroenterostomy-distal anastomosis. Also no evidence of small bowel obstruction more dis tally. LIVER: There are no obvious focal hepatic lesions evident of this noninfused study. GALLBLADDER/BILIARY: The gallbladder surgically absent. CBD is not dilated. PANCREAS: No evidence of pancreatic mass nor dilatation of the pancreatic duct. SPLEEN: Spleen is not enlarged. No obvious intrasplenic lesions. Calcified splenic artery. ADRENALS: Unremarkable KIDNEYS:There is inflammatory streaking around the left renal pelvis and along the course of the left ureter. There are no radiopaque calculi in the kidney nor within the dilated left ureter nor in the urinary bladder. Maximum diameter of the left ureter is 1.3 cm which is in the pelvis just distal t o the iliac vessels. Lesser amount of streaking is seen along the opposite-right ureter. Right uret er is also slightly dilated. Urinary bladder wall is diffusely thickened. There are no radiopaque c alculi at the ureterovesical junctions nor within the urinary bladder lumen.. ABDOMINAL AORTA: Calcified but not enlarged. LYMPH NODES: There is no retroperitoneal nor paraaortic adenopathy. ABDOMINAL WALL: There are postsurgical changes in the anterior abdominal wall. There is an elliptica l collection in the left paracentral anterior abdominal wall in the region of prior mesh this collect ion measures approximately 5 cm wide by 1 point 5 cm AP by 8 cm cephalocaudal. Unchanged from prior study. Does not contain gas. May represent seroma or less likely abscess. GI: There is no evidence of bowel obstruction, free air, nor abscess. PELVIS: LYMPH NODES: There is no intrapelvic nor inguinal adenopathy. GI: No evidence of appendicitis.No evidence of sigmoid diverticulitis. URINARY BLADDER: No calculi nor obvious masses evident REPRODUCTIVE: Enlarged prostate gland. The measures 5.8 cm wide. Seminal vesicles unremarkable. OSSEOUS: No significant osseous lesions. No fractures IMPRESSION: 1. Previously present calculus in the upper left ureter is no longer seen. Left ureter is dilated an d there is also mild dilatation of the right ureter. No radiopaque calculi seen on either side. Per i pelvic streaking bilaterally, more so on the left side may be related to infectious. Recommend uri ne testing. There is also significant thickening of the urinary bladder wall more so than previous a nd most probably related to chronic infection but cannot exclude neoplasm. 2. Stable appearance of anterior abdominal wall collection which is associated with prior mesh hernia repair. 3. Evidence of previous bariatric surgery/cholecystectomy and anterior abdominal hernia repair. Abun dant food material in the gastric pouch. No evidence of obstruction of the pre colic Aviva limb nor m ore distal small bowel obstruction. There is no ascites. 4. Enlarged prostate gland. No obturator adenopathy. First read by [facility]. RADIATION DOSE DELIVERED: 1,028.22mGy.cm Total DLP DATA REPOSITORY: All CT scans at this facility are submitted to the National Radiology Data Registry (NRDR) Dose Index Registry (DIR) with the [employer] (ACR). RADIATION OPTIMIZATION: All CT scans at this facility use at least one of these dose optimization te chniques: automated exposure control; mA and/or kV adjustment per patient size (includes targeted exa ms where dose is matched to clinical indication); or iterative reconstruction.
--- NOTE | 2023-05-04 09:36 | NUR.NOTE ---
Patient undergoes renal CT. Patient transported to radiology by RN in wheelchair and returns to ICU in wheelchair. Patient tolerated the procedure well and is stable on his feet.Nursing Note:
--- NOTE | 2023-05-04 09:49 | DI.VRAD_ITS ---
Addendum created by Zoltan Irizarry MD on 05/04/2023 9:59:44 AM EDT: THIS REPORT CONTAINS FINDINGS THAT MAY BE CRITICAL TO PATIENT CARE. The findings were verbally communicated via telephone conference with Gisella Issa at 9:59 AM EDT on 05/04/2023. The findings were acknowledged and understood. Initial report created on 05/04/2023 9:49:09 AM EDT: PROCEDURE INFORMATION: Exam: CT Abdomen And Pelvis Without Contrast Exam date and time: 05/04/2023 9:31 AM Age: 72 years old Clinical indication: Other: UTI, HX nephrolithiasis TECHNIQUE: Imaging protocol: Computed tomography of the abdomen and pelvis without contrast. Radiation optimization: All CT scans at this facility use at least one of these dose optimization techniques: automated exposure control; mA and/or kV adjustment per patient size (includes targeted exams where dose is matched to clinical indication); or iterative reconstruction. COMPARISON: CT ABDOMEN PELVIS W 06/01/2021 8:31 AM FINDINGS: Heart: Cardiomegaly. There is calcification of the mitral valve annulus. Liver: Normal. No mass. Gallbladder and bile ducts: Cholecystectomy. Cholecystectomy Pancreas: Inflammatory changes around the pancreas may be due to motion artifact versus pancreatitis.. Spleen: Normal. No splenomegaly. Adrenal glands: Normal. No mass. Kidneys and ureters: Again noted is dilatation of the left collecting system and left ureter. There are inflammatory changes around the proximal left ureter. The entire left ureter is dilated but no ureteral calculus. There is bladder wall thickness at the insertion of the left UVJ. This could be causing obstruction of the left ureter. Differential includes recent passage of a ureteral calculus. Similar appearance in the right collecting system and right ureter with surrounding inflammatory changes and dilatation. Again no ureteral calculus is identified but there is bladder wall thickness which may be obstructing the right ureter.. Differential includes recent passage of a ureteral calculus. Stomach and bowel: Sutures in the stomach Appendix: No evidence of appendicitis. Intraperitoneal space: Unremarkable. No free air. No significant fluid collection. Vasculature: Unremarkable. No abdominal aortic aneurysm. Lymph nodes: Unremarkable. No enlarged lymph nodes. Urinary bladder: Posterior bladder wall thickening measures 21-22 mm. This is nonspecific and may represent inflammation or infection. Neoplastic process is included in the differential. Reproductive: The prostate is enlarged, greater than 5 cm. Recommend urology consult Bones/joints: Unremarkable. No acute fracture. Soft tissues: 5.3 by 1.7 cm loculated collection may be in the anterior pelvic wall. For example series 2, image 110. It extends from image 98 -119. It measures 8 cm on Series 4, image 62.. It was present on the prior study and is stable.Differential includes abscess, hematoma, seroma. IMPRESSION: 1. Again noted is dilatation of the left collecting system and left ureter. There are inflammatory changes around the proximal left ureter. The entire left ureter is dilated but no ureteral calculus. There is bladder wall thickness at the insertion of the left UVJ. This could be causing obstruction of the left ureter. Differential includes recent passage of a ureteral calculus. 2. Similar appearance in the right collecting system and right ureter with surrounding inflammatory changes and dilatation. Again no ureteral calculus is identified but there is bladder wall thickness which may be obstructing the right ureter.. Differential includes recent passage of a ureteral calculus. 3. Posterior bladder wall thickening measures 21-22 mm. This is nonspecific and may represent inflammation or infection. Neoplastic process is included in the differential. 4. 5.3 by 1.7 cm loculated collection may be in the anterior pelvic wall. For example series 2, image 110. It extends from image 98 -119. It measures 8 cm on Series 4, image 62.. It was present on the prior study and is stable.Differential includes abscess, hematoma, seroma. 5. Inflammatory changes around the pancreas may be due to motion artifact versus pancreatitis.. Dictated and Authenticated by: Zoltan Irizarry MD. Ordering:ROSA Obando MD
--- NOTE | 2023-05-04 10:34 | W.PM.PROGNOT ---
Date of Service Date of service: 05/04/23 Time of Service: 10:34 Assessment and Plan Assessment and plan (1) Seizure: Start date: 05/02/23 Status: Acute Assessment and plan: Continue keppra. Await EEG read. (2) UTI (urinary tract infection): Start date: 05/02/23 Assessment and plan: Present on admission. Urine C&S is growing two different species of E. Coli, sensitivities are pending. Continue empiric Rocephin. Place a thornton catheter and c/s urology for possible ureteral stent placement, if deemed necessary. I am concerned about the worsening Cr from yesterday to today. Agree that this could have triggered the seizure. Qualifiers: Urinary tract infection type: site unspecified Hematuria presence: with hematuria Qualified Code(s): N39.0 - Urinary tract infection, site not specified; R31.9 - Hematuria, unspecified (3) Obstructive uropathy: Status: Acute Assessment and plan: As above Insert thornton catheter. 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 Continue eliquis. (5) Atrial fibrillation: Assessment and plan: Rate controlled. Continue diltiazem and apixaban. Echocardiogram: LVEF 55%, no wall motion abnormalities. Qualifiers: Atrial fibrillation type: unspecified Qualified Code(s): I48.91 - Unspecified atrial fibrillation (6) Type 2 diabetes mellitus: Assessment and plan: Continue SSI. (7) Essential hypertension: Assessment and plan: Continue diltiazem. (8) Discharge planning issues: Status: Acute Assessment and plan: DNR per order placed yesterday. I am not sure if there is a COLST - will investigate. Anticipate discharge home on Saturday, unless urology has surgical plans. Subjective Subjective Interval history since last seen: Ms Rueda denies dizziness, CP, SOB, nausea (he shakes his head no). I had discussed the patient's CT with [facility] radiologist, Dr Wood, who informed me of the B dilated ureters, no evidence of stones but a possible obstruction at the level of B UVJs, but also bladder thickening. I discussed the results of his renal CT with him and that I recommended that we place a thornton catheter to see if it would help with clearing of the UTI as well as his renal function. We also discussed getting a urology consult on Saturday and the possibility of him needing ureteral stents. Exam Narrative Exam Narrative: General: Pleasant elderly male who gives yes/no answers and nodes/shakes his head, appears to be understanding information I present to him. HEENT: EOMI, MMM Heart: irregularly irregular rhythm, no m/r/g Lungs: CTAB Abdomen: soft, nontender, nondistended Extremities: no edema BLEs Objective Last Vital Signs Temp 36.4 C L 05/04/23 07:33 Pulse 66 05/04/23 07:33 Resp 18 05/04/23 07:33 BP 98/66 L 05/04/23 07:33 Pulse Ox 99 05/04/23 07:33 Laboratory Results - last 24 hr 05/02/23 05/04/23 05/04/23 15:45 05:50 05:50 WBC 7.15 RBC 3.97 L Hgb 11.0 L Hct 34.3 L MCV 86 MCH 27.7 MCHC 32.1 RDW 14.4 H Plt Count 212 MPV 8.5 Immature Gran % 0.4 Neutrophils % 70.4 Lymphocytes % 16.8 Monocytes % 9.9 Eosinophils % 2.2 Basophils % 0.3 Nucleated RBC % 0.0 Absolute Neutrophils 5.03 Absolute Lymphocytes 1.20 Absolute Monocytes 0.71 Absolute Eosinophils 0.16 Absolute Basophils 0.02 Sodium 142 Potassium 4.1 Chloride 106 Carbon Dioxide 25.3 Anion Gap 10.7 BUN 31 H Creatinine 1.5 H Est GFR (CKD-EPI 2020) 48.85 Glucose 121 H Calcium 9.1 Magnesium 1.6 L 2.5 H Total Bilirubin 0.7 AST 10 L ALT 18 Alkaline Phosphatase 97 Troponin I < 50 Total Protein 7.1 Albumin 3.4 TSH 2.03 Add-On Test Request 05/04/23 05/04/23 05:50 05:50 WBC RBC Hgb Hct MCV MCH MCHC RDW Plt Count MPV Immature Gran % Neutrophils % Lymphocytes % Monocytes % Eosinophils % Basophils % Nucleated RBC % Absolute Neutrophils Absolute Lymphocytes Absolute Monocytes Absolute Eosinophils Absolute Basophils Sodium 140 Potassium 3.5 Chloride 105 Carbon Dioxide 22.2 Anion Gap 12.8 H BUN 32 H Creatinine 1.6 H Est GFR (CKD-EPI 2020) 45.21 Glucose 158 H Calcium 8.1 L Magnesium Total Bilirubin AST ALT Alkaline Phosphatase Troponin I Total Protein Albumin TSH Add-On Test Request DONE Objective Narrative Objective Narrative: CT renal protocol: 1. ? Again noted is dilatation of the left collecting system and left ureter. There are inflammatory changes around the proximal left ureter. The entire left ureter is dilated but no ureteral calculus. There is bladder wall thickness at the insertion of the left UVJ. This could be causing obstruction of the left ureter. Differential includes recent passage of a ureteral calculus. 2. ? Similar appearance in the right collecting system and right ureter with surrounding inflammatory changes and dilatation. Again no ureteral calculus is identified but there is bladder wall thickness which may be obstructing the right ureter.. Differential includes recent passage of a ureteral calculus. 3. ? Posterior bladder wall thickening measures 21-22 mm. This is nonspecific and may represent inflammation or infection. Neoplastic process is included in the differential. 4. ? 5.3 by 1.7 cm loculated collection may be in the anterior pelvic wall. For example series 2, image 110. It extends from image 98 -119. It measures 8 cm on Series 4, image 62.. It was present on the prior study and is stable.Differential includes abscess, hematoma, seroma. 5. ? Inflammatory changes around the pancreas may be due to motion artifact versus pancreatitis.. Time Spent with Patient Time Spent with Patient: 35-49 minutes Time was spent: preparing to see the patient(eg.review tests), obtaining and/or reviewing separately otained hiistory, ordering medications,tests, procedures, referring, communicating with other health career services coordinator, indepentently interpreting results, counseling the patient and care coordination
[2023-05-04] MEDS: Lidocaine 2% Jelly 11 ML SYR UR (10:41)
[2023-05-04] MEDS: Nystatin CREAM 30 GM TUBE TP (11:10)
[2023-05-04] MEDS: Triamcinolone 0.1% OINT 15 GM TUBE TP (11:21)
--- NOTE | 2023-05-04 13:49 | NUR.NOTE ---
BARREL RIFLER BUTTON gives report to FRACISCO Garcia from Med/Surg and transfers patient in wheelchair together with patient belongings and LR infusing at 125ml/hr. Patient brought to room 214. ICU nurse gives patient insuline pen, nystatin cream and Triamicinolone to charge nurse since Radha went to lunch. IC RN delivers patient's belongings to room 214. Patient is stable and in good spirits sitting up in chair with chair alarm on in Med/Surg room 214. Transfer took place aat 1330.Nursing Note:
--- NOTE | 2023-05-04 18:06 | NUR.NOTE ---
Patient continuously getting OOB. RN attempted to reorient and assess needs. Patient moved closer to RN station and bed alarm on for safety.
[2023-05-04] MEDS: Atorvastatin 40 MG TAB PO (20:48)
[2023-05-05 03:51] VITALS: BP 148/85; PULSE 95; RESP 16; TEMP 36.6; O2SAT 99
[2023-05-05] MEDS: Metoprolol 12.5 MG TAB PO ×3 (04:28→21:13)
[2023-05-05] MEDS: dilTIAZem 30 MG TAB PO ×4 (04:29→21:12)
[2023-05-05] MEDS: Levothyroxine 50 MCG TAB PO (04:29)
[2023-05-05 06:29] VITALS: BP 122/76; PULSE 63; RESP 16; TEMP 36.3; O2SAT 97
[2023-05-05 06:34] LABS: Abs Immature Grans 0.04 10^3/uL (0.0-0.06); Absolute Basophil Count 0.03 10^3/uL (0.0-0.2); Absolute Eosinophil Count 0.27 10^3/uL (0.0-0.7); Absolute Lymphocyte Count 1.11 10^3/uL (1.2-3.4); Absolute Monocyte Count 0.74 10^3/uL (0.1-0.8); Absolute Neutrophil Count 5.78 10^3/uL (1.2-6.7); Basophils % 0.4; Eosinophils % 3.4; HCT 32.8 % (40.0-50.0); HGB 10.6 g/dL (13.5-17.5); Immature Grans % 0.5; Lymphocytes % 13.9; MCH 28.1 pg (27.0-33.0); MCHC 32.3 % (32.0-36.0); MCV 87 fL (80-95); MPV 8.7 fL (8.0-11.0); Monocytes % 9.3; Neutrophils % 72.5; Platelet Count 205 10^3/uL (130-400); RBC 3.77 10^6/uL (4.36-5.78); RDW 14.3 % (11.8-14.1); RDW-SD 45.5 fL; WBC 7.97 10^3/uL (4.4-10.8)
[2023-05-05 06:47] LABS: BUN 24 mg/dL (7-18); CREATININE 1.1 mg/dL (0.70-1.30); Calcium 8.4 mg/dL (8.5-10.1); Chloride 109 mmol/L (98-107); Estimated GFR 70.88 (mL/min/1.73m2); Glucose 163 mg/dL (74-106); Potassium 3.4 mmol/L (3.5-5.1); Sodium 143 mmol/L (136-145)
[2023-05-05] MEDS: cefTRIAXone 1 GM/50 ML BAG IVPB (07:44)
[2023-05-05] MEDS: Lisinopril 10 MG TAB PO (07:45)
[2023-05-05] MEDS: Finasteride 5 MG TAB PO (07:45)
[2023-05-05] MEDS: levETIRAcetam 250 MG TAB 500 MG PO ×2 (07:46→21:12)
[2023-05-05] MEDS: Apixaban 5 MG TAB PO ×2 (07:46→21:12)
[2023-05-05] MEDS: Calcium 600mg/Vit D 200U TAB 2 TAB PO (07:46)
[2023-05-05] MEDS: Ascorbic Acid 500 MG TAB 1000 MG PO (07:46)
[2023-05-05] MEDS: Multivitamin TAB 2 TAB PO (07:47)
[2023-05-05] MEDS: Tamsulosin 0.4 MG CAPCR PO (07:48)
[2023-05-05] MEDS: Cyanocobalamin 500 MCG TAB PO (07:49)
[2023-05-05] MEDS: Normal Saline Flush 10 ML SYR IVP (07:49)
[2023-05-05] MEDS: Insulin Aspart 300 UNITS/3 ML PEN SC ×2 (08:07→16:40)
[2023-05-05] MEDS: Potassium Chloride 20 MEQ TABCR 40 MEQ PO (08:08)
--- NOTE | 2023-05-05 09:12 | PT.INTREAT ---
Date of service: 05/05/23 Time of Service: 08:50 PT Notes Visit Reasons: Seizure Disorder, Left CVA, CAF Inpatient Physical Therapy Treatment Note [facility] Date: 05/05/2023 PRECAUTIONS: Fall, standard, seizures SUBJECTIVE: Stated yes when was asked if he would like to go for a walk. Also, indicated he needed to finish having a bowel movement while having undergarment changed. OBJECTIVE: PAIN: No complaints of pain offered, when asked if having pain. Did note an area of skin irritation in the medial aspect of mid left hermosillo that had small amount of bloody discharge. This was reported to Nurse Rocio and she indicated she had also noticed this this morning as well. Eugene denies noticing any aggressive rubbing or bumping of hermosillo. BED MOBILITY/TRANSFERS Rolling L/R: SBA with rolling to the left Supine-sit: SBA Sit-supine: SBA Sit-stand: SBA, cueing with pushing up from bed/ chair Stand-sit: SBA, cueing with reaching back for chair GAIT Assistive Device: FWW, thornton in place Weight bearing: Full Assist: CGA/ SBA Distance: 100ft + 200ft with w/c follow Deviation: Mild lean to the right, requires occasional verbal cueing to push up from chair and reach back for chair with sit to/ from stand. Did have small bowel movement in undergarment while up walking and was able to finish bowel movement on toilet, once back to room. Assist with toileting from nurse Link. Eugene was able to stand without assist throughout clean up. Neuromuscular Re-education ([id number]). Worked on standing balance performing weight shifts with feet parallel and in partial tandem. Did reach for walker with weight shifting in partial tandem with left foot forward at fifth rep, but very stable with right foot forward. Attempted mini squats with light hand touch on walker, but appeared to feel unsteady with this, grasping walker with right hand. STAIRS: Up/ down 2 6-inch steps and 3 4-inch steps, utilizing 2 handrails and CGA on one. Able to perform both step to and step through gait pattern with going up and step to only with going down stairs. Up in chair with alarm on when I left patient, post session ASSESSMENT: Did well with ambulation on flat surface and stairs today. Good effort with standing balance activities. Did appear mildly fatigued post ambulation and balance tasks. PLAN: Continue with current plan of care, advancing as able to tolerate for improved ADL function. TREATMENT CODE/TIME: [id number] and [id number], 8:50 to 9:20 am (30')
[2023-05-05 11:00] VITALS: BP 119/74; PULSE 74; RESP 22; TEMP 37.1; O2SAT 99
[2023-05-05] MEDS: Acetaminophen 325 MG TAB PO (13:50)
[2023-05-05 14:36] VITALS: BP 113/72; PULSE 103; RESP 16; TEMP 36.8; O2SAT 98
--- NOTE | 2023-05-05 17:14 | PGE_ITS ---
Date of Service Date of service: 05/05/23 Time of Service: 17:15 Assessment and Plan Assessment and plan (1) UTI (urinary tract infection): Start date: 05/02/23 Assessment and plan: Present on admission. Urine C&S is growing two different species of E. Coli, which are pansensitive. Continue Rocephin. Continue thornton catheter. Given obstructive uropathy picture, urology was consulted - consult expected to happen tomorrow. Cr is better. UTI could have triggered the seizure. Qualifiers: Urinary tract infection type: site unspecified Hematuria presence: with hematuria Qualified Code(s): N39.0 - Urinary tract infection, site not specified; R31.9 - Hematuria, unspecified (2) Obstructive uropathy: Status: Acute Assessment and plan: S/p Thornton Cr is better today Await urology consult. (3) Seizure: Start date: 05/02/23 Status: Acute Assessment and plan: Continue keppra. Await EEG read. 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 Continue eliquis. Continue PT (5) Atrial fibrillation: Assessment and plan: Rate controlled. Continue diltiazem and apixaban. Echocardiogram: LVEF 55%, no wall motion abnormalities. Qualifiers: Atrial fibrillation type: unspecified Qualified Code(s): I48.91 - Unspecified atrial fibrillation (6) Type 2 diabetes mellitus: Assessment and plan: Continue SSI. (7) VERONICA (acute kidney injury): Status: Resolved Assessment and plan: Resolved post insertion of thornton catheter. ?urinary retention. (8) Essential hypertension: Assessment and plan: Continue diltiazem. (9) Discharge planning issues: Status: Acute Assessment and plan: DNR. I am not sure if there is a COLST. Anticipate discharge home tomorrow, unless urology has surgical plans. Subjective Subjective Interval history since last seen: Mr Rueda states that he is feeling good. Denies dizziness, CP, SOB, n/v. Enjoying dinner. Did well walking in the hallway with his nurse today. Exam Narrative Exam Narrative: General: Pleasant elderly male who gives yes/no/good answers, and nods/shakes his head, eating dinner in a chair HEENT: EOMI, MMM Heart: irregularly irregular rhythm, no m/r/g Lungs: CTAB Abdomen: soft, nontender, nondistended Extremities: no edema BLEs Objective Last Vital Signs Temp 36.8 C 05/05/23 14:36 Pulse 103 H 05/05/23 14:36 Resp 16 05/05/23 14:36 BP 113/72 05/05/23 14:36 Pulse Ox 98 05/05/23 14:36 Laboratory Results - last 24 hr 05/05/23 05/05/23 06:05 06:05 WBC 7.97 RBC 3.77 L Hgb 10.6 L Hct 32.8 L MCV 87 MCH 28.1 MCHC 32.3 RDW 14.3 H Plt Count 205 MPV 8.7 Immature Gran % 0.5 Neutrophils % 72.5 Lymphocytes % 13.9 Monocytes % 9.3 Eosinophils % 3.4 Basophils % 0.4 Nucleated RBC % 0.0 Absolute Neutrophils 5.78 Absolute Lymphocytes 1.11 L Absolute Monocytes 0.74 Absolute Eosinophils 0.27 Absolute Basophils 0.03 Sodium 143 Potassium 3.4 L Chloride 109 H Carbon Dioxide 24.0 Anion Gap 10.0 BUN 24 H Creatinine 1.1 Est GFR (CKD-EPI 2020) 70.88 Glucose 163 H Calcium 8.4 L Magnesium 2.0 Time Spent with Patient Time Spent with Patient: 25-34 minutes Time was spent: preparing to see the patient(eg.review tests), obtaining and/or reviewing separately otained hiistory, ordering medications,tests, procedures, referring, communicating with other health customer care consultant, indepentently int erpreting results, counseling the patient and care coordination
[2023-05-05 19:18] VITALS: BP 149/97; PULSE 90; RESP 18; TEMP 36.6; O2SAT 99
[2023-05-05] MEDS: Nystatin CREAM 30 GM TUBE TP (21:12)
[2023-05-05] MEDS: Melatonin 3 MG TAB PO (21:12)
[2023-05-05] MEDS: Atorvastatin 40 MG TAB PO (21:12)
--- NOTE | 2023-05-05 21:12 | PDOC.EEG ---
Neurology EEG EEG: [facility] Department of Neurology INPATIENT EEG REPORT Date of Recordin05/03/23 Interpreting Physician: Dr. Charity Nichols Reason for study: Mr. Rueda is a 72 year-old admitted with seizures manifested by facial twitching. Current Medications: Current Medications Acetaminophen (Acetaminophen 325 Mg Tab) 325 - 650 mg PO Q4H PRN PRN Last Admin: 05/05/23 13:50 Dose: 650 mg Al Hydrox/Mg Hydrox/Simethicone (Mylanta Suspension 30 Ml Cup) 30 ml PO Q2H PRN PRN Apixaban (Apixaban 5 Mg Tab) 5 mg PO BID [facility] Last Admin: 05/05/23 07:46 Dose: 5 mg Ascorbic Acid (Ascorbic Acid 500 Mg Tab) 1,000 mg PO DAILY [facility] [place] Last Admin: 05/05/23 07:46 Dose: 1,000 mg Atorvastatin Calcium (Atorvastatin 40 Mg Tab) 40 mg PO QPM [facility] [place] Last Admin: 05/04/23 20:48 Dose: 40 mg Calcium/Vitamin D (Calcium 600mg/Vit D 200u Tab) 2 tab PO DAILY [facility] Last Admin: 05/05/23 07:46 Dose: 2 tab Cyanocobalamin (Cyanocobalamin 500 Mcg Tab) 500 mcg PO DAILY [facility] [place] Last Admin: 05/05/23 07:49 Dose: 500 mcg Dextrose (Glucose Oral Gel 15 Gm/37.5 Gm Tube) 0 gm PO DIRECTED PRN Dextrose/Water (Dextrose 50%-Water 25 Gm/50 Ml Syr) 0 gm IVP DIRECTED PRN Diltiazem HCl (Diltiazem 30 Mg Tab) 30 mg PO Q6H [facility] [place] Last Admin: 05/05/23 16:41 Dose: 30 mg Dimethicone/Zinc Oxide (Kaelyn Protect Cream 142 Gm Tube) 0 gm TP PRN PRN Docusate Sodium (Docusate Sodium 100 Mg Cap) 100 mg PO TID PRN PRN Finasteride (Finasteride 5 Mg Tab) 5 mg PO DAILY [facility] [place] Last Admin: 05/05/23 07:45 Dose: 5 mg Sodium Chloride (Saline 500ml Bag) 500 mls @ 0 mls/hr IV PRN PRN Ceftriaxone Sodium/Dextrose (Rocephin) 1 gm in 50 mls @ 100 mls/hr IVPB Q24H [facility] [place] Last Admin: 07/30/23 07:44 Dose: 100 mls/hr IV Miscellaneous Supplies (Iv Access) 1 each IV DIRECTED [facility] Insulin Aspart (Insulin Aspart 300 Units/3 Ml Pen) 0 - 9 units SC 0800,1200,1700,2200 [facility]; Protocol Last Admin: 05/05/23 16:40 Dose: 2 unit Levetiracetam (Levetiracetam 250 Mg Tab) 500 mg PO BID [facility] [place] Last Admin: 05/05/23 07:46 Dose: 500 mg Levothyroxine Sodium (Levothyroxine 50 Mcg Tab) 50 mcg PO 0600 [facility] [place] Last Admin: 05/05/23 04:29 Dose: 50 mcg Lisinopril (Lisinopril 10 Mg Tab) 10 mg PO DAILY [facility] [place] Last Admin: 05/05/23 07:45 Dose: 10 mg Magnesium Hydroxide (Milk Of Magnesia 30 Ml Cup) 30 ml PO DAILY PRN PRN Melatonin (Melatonin 3 Mg Tab) 3 mg PO HS PRN Metoprolol Tartrate (Metoprolol 12.5 Mg Tab) 12.5 mg PO Q8H [facility] [place] Last Admin: 05/05/23 13:50 Dose: 12.5 mg Multivitamins (Multivitamin Tab) 1 tab PO DAILY [facility] [place] Nystatin (Nystatin Cream 30 Gm Tube) 0 gm TP BID [facility] [place] Last Admin: 05/05/23 08:08 Dose: Not Given Polyethylene Glycol (Polyethylene Glycol 3350 17 Gm Packet) 17 gm PO DAILY PRN PRN PRN Reason: Constipation Sodium Chloride (Normal Saline Flush 10 Ml Syr) 0 ml IVP PRN PRN Last Admin: 05/05/23 07:49 Dose: 20 ml Tamsulosin HCl (Tamsulosin 0.4 Mg Capcr) 0.4 mg PO DAILY [facility] [place] Last Admin: 05/05/23 07:48 Dose: 0.4 mg Triamcinolone Acetonide (Triamcinolone 0.1% Oint 15 Gm Tube) 0 gm TP DAILY [facility] [place] Last Admin: 05/05/23 08:08 Dose: Not Given METHODS: A 21 channel digitized electroencephalogram was performed in the [facility] Med/Surg Floor or ICU. The 10/20 international system of electrode placement was used and bipolar and referential electrode montages were recorded. In addition to EEG the patient was monitored for EKG and lateral/vertical eye movements. Activation procedures of photic stimulation and hyperventilation were performed if applicable. Video was used during activation procedures and during events where applicable. The duration of the recording was 30 minutes. DESCRIPTION OF EEG: The patient was noted to be awake, drowsy, and asleep during the recording. During maximal wakefulness, no definite posterior background rhythm was seen. With eye opening the background activity changed to a low voltage mixture of alpha, beta, and occasional theta range frequencies. Faster frequencies were present in the bilateral anterior head regions. There was a normal anterior-posterior voltage gradient. During drowsiness, there was attenuation of the posterior dominant background rhythm and vertex waves. Stage II sleep was present with symmetrical sleep spindles, K-complexes, and vertex waves. There was continuous polymorphic, moderate-amplitude theta slowing throughout the recording. Activating Procedures: Photic stimulation was performed which produced no posterior driving response. Hyperventilation was not performed. EKG: EKG revealed an irregular rhythm. INTERPRETATION: This EEG is abnormal due to: #1. Moderate generalized polymorphic theta slowing. #2. Irregular EKG. PRIOR EEG: none CLINICAL CORRELATION: The background slowing is suggestive of a moderate diffuse cerebral encephalopathy of broad differential including toxic-metabolic etiology. No focal regions of cerebral dysfunction or epileptiform activity was present. Clinical correlation is advised. Charity Nichols MD
[2023-05-05 23:36] VITALS: BP 117/75; PULSE 66; RESP 18; TEMP 35.9; O2SAT 97
--- NOTE | 2023-05-06 | DI.US_ITS ---
Exam(s) US RENAL EXAM: US RENAL CLINICAL HISTORY: f/u hydronephrosis post insertion of thorntno cathete TECHNIQUE: Ultrasound of both kidneys performed using standard protocol. COMPARISON: Abdominal CT scan of 05/04/2023 FINDINGS: RIGHT KIDNEY: Measures 11.4 cm in length. No cysts evident. Normal cortical thickness and corticomedullary differen tiation .No solid masses No intrarenal calculi nor hydronephrosis. LEFT KIDNEY: Measures 0.5 cm in length. No cysts evident. Normal cortical thickness and corticomedullary differen tiaion. No solids masses. No intrarenal calculi nor hydonephrosis. URINARY BLADDER: Urinary bladder is collapsed around a Thornton catheter. Therefore is difficult to evaluate bladder wal l. What is seen of the bladder wall does appear thickened, consistent with what was evident on the r ecent CT scan. Both ureterovesical jets were not able to be identified. IMPRESSION: 1. No significant focal ultrasound findings in the kidneys no hydronephrosis. 2. The wall of the urinary bladder is thickened but difficult to evaluate because the bladder is col lapsed around an indwelling Thornton catheter. DATA REPOSITORY:
[2023-05-06 03:27] VITALS: BP 137/93; PULSE 105; RESP 18; TEMP 36.4; O2SAT 100
[2023-05-06] MEDS: dilTIAZem 30 MG TAB PO ×3 (03:43→20:46)
[2023-05-06] MEDS: Mylanta Suspension 30 ML CUP PO ×2 (03:44→19:11)
[2023-05-06] MEDS: Levothyroxine 50 MCG TAB PO (05:50)
[2023-05-06] MEDS: Metoprolol 12.5 MG TAB PO ×3 (05:50→20:46)
[2023-05-06 05:51] VITALS: BP 146/86; PULSE 77
[2023-05-06 06:49] LABS: Abs Immature Grans 0.02 10^3/uL (0.0-0.06); Absolute Basophil Count 0.02 10^3/uL (0.0-0.2); Absolute Eosinophil Count 0.21 10^3/uL (0.0-0.7); Absolute Lymphocyte Count 1.34 10^3/uL (1.2-3.4); Absolute Monocyte Count 0.52 10^3/uL (0.1-0.8); Absolute Neutrophil Count 5.11 10^3/uL (1.2-6.7); Basophils % 0.3; Eosinophils % 2.9; HCT 35.3 % (40.0-50.0); HGB 11.4 g/dL (13.5-17.5); Immature Grans % 0.3; Lymphocytes % 18.6; MCH 28.2 pg (27.0-33.0); MCHC 32.3 % (32.0-36.0); MCV 87 fL (80-95); MPV 9.1 fL (8.0-11.0); Monocytes % 7.2; Neutrophils % 70.7; Platelet Count 228 10^3/uL (130-400); RBC 4.04 10^6/uL (4.36-5.78); RDW 14.5 % (11.8-14.1); RDW-SD 46.1 fL; WBC 7.22 10^3/uL (4.4-10.8)
[2023-05-06 07:10] VITALS: BP 136/78; PULSE 79; TEMP 36.6; O2SAT 99
[2023-05-06] MEDS: levETIRAcetam 250 MG TAB 500 MG PO (08:03)
[2023-05-06] MEDS: Finasteride 5 MG TAB PO (08:04)
[2023-05-06] MEDS: Calcium 600mg/Vit D 200U TAB 2 TAB PO (08:04)
[2023-05-06] MEDS: Multivitamin TAB 1 TAB PO (08:04)
[2023-05-06] MEDS: Cyanocobalamin 500 MCG TAB PO (08:04)
[2023-05-06] MEDS: Tamsulosin 0.4 MG CAPCR PO (08:05)
[2023-05-06] MEDS: Lisinopril 10 MG TAB PO (08:05)
[2023-05-06] MEDS: Ascorbic Acid 500 MG TAB 1000 MG PO (08:05)
[2023-05-06] MEDS: Apixaban 5 MG TAB PO ×2 (08:05→19:11)
[2023-05-06] MEDS: cefTRIAXone 1 GM/50 ML BAG IVPB (08:06)
[2023-05-06] MEDS: Normal Saline Flush 10 ML SYR IVP (08:06)
[2023-05-06] MEDS: Insulin Aspart 300 UNITS/3 ML PEN SC ×3 (08:06→20:46)
[2023-05-06] MEDS: Nystatin CREAM 30 GM TUBE TP (08:07)
[2023-05-06] MEDS: Triamcinolone 0.1% OINT 15 GM TUBE TP (08:07)
[2023-05-06 08:22] LABS: Anion Gap 9.7 mmol/L (3-11); BUN 22 mg/dL (7-18); CO2 24.3 mmol/L (21.0-32.0); CREATININE 1.1 mg/dL (0.70-1.30); Calcium 8.5 mg/dL (8.5-10.1); Chloride 108 mmol/L (98-107); Estimated GFR 70.88 (mL/min/1.73m2); Glucose 158 mg/dL (74-106); Magnesium 1.9 mg/dL (1.8-2.4); Potassium 3.7 mmol/L (3.5-5.1); Sodium 142 mmol/L (136-145)
[2023-05-06 11:08] VITALS: BP 146/76; PULSE 70; TEMP 36.3; O2SAT 98
--- NOTE | 2023-05-06 11:39 | PT.INTREAT ---
Date of service: 05/06/23 Time of Service: 09:31 PT Notes Visit Reasons: Seizure Disorder, Left CVA, CAF Inpatient Physical Therapy Treatment Note [facility] Date: 05/06/23 PRECAUTIONS: Fall, standard, activity as tolerated, seizure precautions, Romero in place, IV access right UE, no IV attached. SUBJECTIVE: Patient sitting up in recliner with legs elevated, RANDALL alarm in place, agreeable to therapy. OBJECTIVE: PAIN: none reported BED MOBILITY/TRANSFERS Sit-stand: SBA Stand-sit: SBA Bed-Chair: SBA Chair-bed: SBA GAIT Assistive Device: FWW Weight bearing: Full Assist: SBA, wheelchair follow Distance: 250 feet Deviation: Good step height, good stride length, good eugene, no LOB noted. STAIRS: Patient ascends and descends 21 six inch stairs, CGA with gait belt, bilateral handrails. Indicates that at home he has a full flight of stairs, and bilateral handrails are present. LOB x1 with patient letting go of Right handrail on bottom step and then beginning to tip backwards, requiring min assist to regain balance. Patient states I almost fell. ASSESSMENT: Patient tolerates therapy well, is sitting up in recliner at end of treatment with RANDALL alarm in place and active. PLAN: Continue strengthening per plan of care until patient is medically cleared for discharge. Patient would benefit from continued skilled therapy interventions especially around balance and safety awareness TREATMENT CODE/TIME: 44310 Gait 24 minutes beginning at 9:31
--- NOTE | 2023-05-06 12:20 | NUR.NOTE ---
Nursing Note: son and pt were educated yesterday evening that pt would be npo for this morning for a possible stent placement. pt and son bother verbalized understanding and denied further questions. this morning, son was concerned as to why his father couldnt eat or drink, this rn reminded him that yesterday we talked about possible stent procedure and he needed to remain nothing by mouth until a urologist was able to assess pt.pt is irritable about not being able to eat and drink. charge nurse asked by this rn if he could be provided a clear liquid tray as there is no time as to when the urologists will be able to see the patiet. charge nurse jackie states that dr jimenes wants to keep him npo until urologist consult. pt was educated about this and is very upset that he cant eat or drink.
--- NOTE | 2023-05-06 12:52 | NUR.NOTE ---
Nursing Note: updated son judie on poc and renal us and possible stent placement.
--- NOTE | 2023-05-06 13:42 | W.UROLOGYCON ---
Date of service: 05/06/23 Time of Service: 12:30 Assessment and Plan Assessment and plan (1) Obstructive uropathy: Status: Acute Assessment and plan: While he did not have have a distended bladder on CT scan, he does have findings suggestive of a high-pressure bladder. We can sometimes see this phenomenon with bladder outlet obstruction or we can see it Denovo with a neurogenic bladder. In either event, he has improved with placement of a Romero catheter. Both his lab work and his renal ultrasound show significant improvement. I am going to suggest that we leave his Romero catheter until his infection has cleared. I will discuss with the patient whether he would even consider a treatment such as a transurethral resection of the prostate. If he were to consider such an option, we might be able to render him catheter free. If he is not considering any surgical treatment, we would likely need some type of chronic catheterization. We would prefer CIC but we might be forced to use an indwelling urethral or an indwelling suprapubic tube. History of Present Illness History of Present Illness Chief Complaint: Bilateral hydronephrosis Narrative: This is a 72-year-old gentleman who is known to me from his past history of a left ureteral stone. Initially, we urgently placed a stent and bumped the stone back up into his left kidney. He had uncontrolled diabetes, so he was not felt to be a good surgical candidate at our facility. He was referred to the providers at [facility]. His stent was changed, but the stone was not addressed. By that time, his diabetes was under better control and he met our anesthesia criteria for procedure here at our facility. We did ureteroscopy and treated his stone. His stone was 100% calcium oxalate dihydrate. We have not seen him in the office for over a year. In the interim, he has had a stroke and has expressive aphasia. He is currently hospitalized with an E. coli urinary tract infection. His serum creatinine was increased on admission. A CT scan showed bilateral hydronephrosis and hydroureter with no renal or ureteral stones. His bladder wall was thickened but his bladder was not distended. A Romero catheter was placed and his renal function improved. His urine culture is growing pansensitive E. coli. 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 denies this Atopic conjunctivitis (10/22/13) Atrial fibrillation Benign prostatic hyperplasia (02/25/13) Bladder cancer Carpal tunnel syndrome Chronic anticoagulation Chronic venous stasis Creatinine elevation Dementia Depressive disorder (02/25/13) Diabetes mellitus (02/25/13) Diabetic leg ulcer Elevated WBCs Essential hypertension (06/24/13) Frequency of micturition (01/03/16) Glaucoma (10/22/13) B/L Gross hematuria History of depression Hyperglycemia Hyperlipidemia (02/25/13) Hypermetropia (10/22/13) Hypertension Hypogonadism Idiopathic peripheral neuropathy Iron deficiency Low back pain (08/10/08) Noncompliance Nuclear senile cataract (10/22/13) Obesity (08/10/08) Aviva-en-y 02/2014 Olecranon bursitis CARLOS A on CPAP Osteoarthritis (08/10/08) BILATERAL KNEE replacements Peptic reflux disease (08/10/08) Peripheral neuralgia Peripheral neuropathy Phimosis Presbyopia (10/22/13) Pterygium (08/10/08) LEFT EYE Regular astigmatism (10/22/13) Sensorineural hearing loss, bilateral (09/05/17) Tubular adenoma Tubular and tubulovillous adenoma 2011 --suggested repeat 2017 Type 2 diabetes mellitus Ulcer of hermosillo limited to breakdown of skin Umbilical hernia (08/18/12) Ureterolithiasis Urgency of urination (01/03/16) Urinary tract infection UTI (urinary tract infection) Varicose veins of lower extremity (08/10/08) Venous insufficiency Venous insufficiency (chronic) (peripheral) Surgical History History of transurethral destruction of bladder lesion Hx of total knee arthroplasty Pt reports he has had a left and right knee repacement. Pt doesnt remember when and thinks he had it done at [facility] Ronnell Fundoplication Repair of umbilical hernia Laparoscopic Aviva-en-y surgery for weight loss S/P cholecystectomy (~01/04/21) acute hemorrhagic cholecystitis and xanthogranulomatous inflammation S/P colonoscopy Haddad-2011- tubular and tubulovillous polyps Henderson2019- sessile serrated with low grade dysplacia, tubullovillous with high grade dysplacia and tubular adenomas S/P partial colectomy (~05/09/20) Status post abdominoplasty (05/23/16) Status post cholecystectomy Status post tonsillectomy Status post total knee replacement B/L Vasectomy Family History Mother Cancer Father Heart disease Sister Cancer Sister No problems noted. Brother No problems noted. Brother No problems noted. Brother No problems noted. Son No problems noted. Son No problems noted. Son No problems noted. Social History Smoking/Tobacco Use Status: Never Second Hand Exposure: Yes Smoking risk assessment performed?: Yes Alcohol Intake: never Drug use: Never Substance use type: does not use Caregiver/Support person: No Household members: other Details: son Housing: house Communication Needs: None Education Level: high school Do you need help understanding health information?: Never Pets and animals: No Do you think of yourself as: straight/heterosexual Current gender identity: male What is your relationship status?: How often do you talk on the phone with friends or family?: once per week How often do you get together with friends or relatives?: decline to answer How often do you attend adventism or anabaptism services?: decline to answer Do you belong to any clubs or organized social groups?: no Panel score (0-1 are the most socially isolated patients): 0 What type of physical activity do you participate in: walking Duration: 15-30 minutes/day Frequency: 1-2 times per week Velia/Episcopal: Adventist Special velia needs: No Seatbelt use: always Helmet use: No Drive intox or ride w/intox recycling collections driver: No Do you feel safe at home: Yes Do you feel safe in your relationship?: Yes Exam Narrative Exam Narrative: He appears comfortable. He has expressive aphasia His vital signs are documented elsewhere Romero catheter is in place and is draining clear urine He is awake and alert Results Last Vital Signs Temp 36.3 C L 05/06/23 11:08 Pulse 70 05/06/23 11:08 Resp 18 05/06/23 03:27 BP 146/76 H 05/06/23 11:08 Pulse Ox 98 05/06/23 11:08 Labs 05/06/23 06:20 05/06/23 06:20 Labs: Laboratory Results - last 24 hr 05/06/23 05/06/23 06:20 06:20 WBC 7.22 RBC 4.04 L Hgb 11.4 L Hct 35.3 L MCV 87 MCH 28.2 MCHC 32.3 RDW 14.5 H Plt Count 228 MPV 9.1 Immature Gran % 0.3 Neutrophils % 70.7 Lymphocytes % 18.6 Monocytes % 7.2 Eosinophils % 2.9 Basophils % 0.3 Nucleated RBC % 0.0 Absolute Neutrophils 5.11 Absolute Lymphocytes 1.34 Absolute Monocytes 0.52 Absolute Eosinophils 0.21 Absolute Basophils 0.02 Sodium 142 Potassium 3.7 Chloride 108 H Carbon Dioxide 24.3 Anion Gap 9.7 BUN 22 H Creatinine 1.1 Est GFR (CKD-EPI 2020) 70.88 Glucose 158 H Calcium 8.5 Magnesium 1.9 Imaging Imaging Studies: I reviewed his noncontrast CT scan of the abdomen and pelvis. His ureters are dilated from the pelvis all the way down to the bladder with no obvious obstructing lesions. His bladder is not distended. No catheter is in place. I reviewed the renal US done after his catheter was in place. His hydronephrosis has resolved with bladder drainage.
[2023-05-06 14:49] VITALS: BP 106/67; PULSE 76; TEMP 36.6; O2SAT 97
--- NOTE | 2023-05-06 15:01 | CMPROGNOTE_ITS ---
Care Management Progress Note Progress Note Text Progress Note Text: S/O:Eugene was preparing to ambulate with the BENEFITS TECHNICIAN when CM met with him. When asked how he was doing he clearly stated not good. The BENEFITS TECHNICIAN explained that he was upset because he was not going to be discharged today as planned. Eugene was seen by Dr. Osuna today and additional testing has been ordered. Depending on the results, he may need stent placement which would delay his discharge until tomorrow. Eugene indicated that he was not happy with the plan and was abrupt and firm in his responses to CM. He did however do well with PT and was able to climb 21 stairs. CM will follow. A:Eugene is a 72 year old man admitted on 05/02/23 with a seizure P:Anticipate Eugene will discharge home, possibly with new home health services if a thornton catheter is necessary. He will follow up with with his PCP, Urology and neurology and transport with his son. CM will continue to support Eugene and assess for discharge concerns.
[2023-05-06] MEDS: Acetaminophen 325 MG TAB PO ×2 (16:16→19:11)
--- NOTE | 2023-05-06 16:24 | NUR.NOTE ---
charge nurse sg notified of pt co abd cramping and nausea. also notified of pt frequency and urge to have bm with no bm. f/u requested regarding new orders
--- NOTE | 2023-05-06 16:51 | W.PM.PROGNOT ---
Date of Service Date of service: 05/06/23 Time of Service: 16:51 Assessment and Plan Assessment and plan (1) UTI (urinary tract infection): Start date: 05/02/23 Assessment and plan: Present on admission. Urine C&S is growing two different species of E. Coli, which are pansensitive. Continue Rocephin. Continue thornton catheter. Evaluated by Dr Osuna: no need for cysto/stent since B hydronephroses have resolved. The patient may benefit from TURP in the future. UTI could have triggered the seizure. Qualifiers: Urinary tract infection type: site unspecified Hematuria presence: with hematuria Qualified Code(s): N39.0 - Urinary tract infection, site not specified; R31.9 - Hematuria, unspecified (2) Obstructive uropathy: Status: Acute Assessment and plan: as above We will need to provide either thornton catheter vs intermittent catheterization teaching to son. (3) Seizure: Start date: 05/02/23 Status: Acute Assessment and plan: Continue keppra. EEG w/ encephalopathy rather than focal seizures. Has outpatient follow up with Dr Richards. 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 Continue eliquis. Continue PT (5) Atrial fibrillation: Assessment and plan: Rate controlled. Continue diltiazem and apixaban. Echocardiogram: LVEF 55%, no wall motion abnormalities. Qualifiers: Atrial fibrillation type: unspecified Qualified Code(s): I48.91 - Unspecified atrial fibrillation (6) Type 2 diabetes mellitus: Assessment and plan: Continue SSI. (7) VERONICA (acute kidney injury): Status: Resolved Assessment and plan: Resolved post insertion of thornton catheter. Due to obstructive uropathy/urinary retention. As above - continue thornton catheterization. Intermittent catheterizaton vs thornton on discharge. (8) Essential hypertension: Assessment and plan: Continue diltiazem. (9) Discharge planning issues: Status: Acute Assessment and plan: DNR. I am not sure if there is a COLST. Anticipate discharge home tomorrow. Discussed with Dr Osuna. Subjective Subjective Interval history since last seen: Eugene feels well. Denies dizziness, CP, SOB, n/v. Dr Osuna evaluated the patient and recommended a repeat renal ultrasound to determine whether the patient would benefit from cysto/stent placement. Exam Narrative Exam Narrative: General: Pleasant elderly male who gives yes/no/good answers, and nods/shakes his head, sitting up in a chair HEENT: EOMI, MMM Heart: irregularly irregular rhythm, no m/r/g Lungs: CTAB Abdomen: soft, nontender, nondistended Extremities: no edema BLEs Objective Last Vital Signs Temp 36.6 C 05/06/23 14:49 Pulse 76 05/06/23 14:49 Resp 18 05/06/23 03:27 BP 106/67 05/06/23 14:49 Pulse Ox 97 05/06/23 14:49 Laboratory Results - last 24 hr 05/06/23 05/06/23 06:20 06:20 WBC 7.22 RBC 4.04 L Hgb 11.4 L Hct 35.3 L MCV 87 MCH 28.2 MCHC 32.3 RDW 14.5 H Plt Count 228 MPV 9.1 Immature Gran % 0.3 Neutrophils % 70.7 Lymphocytes % 18.6 Monocytes % 7.2 Eosinophils % 2.9 Basophils % 0.3 Nucleated RBC % 0.0 Absolute Neutrophils 5.11 Absolute Lymphocytes 1.34 Absolute Monocytes 0.52 Absolute Eosinophils 0.21 Absolute Basophils 0.02 Sodium 142 Potassium 3.7 Chloride 108 H Carbon Dioxide 24.3 Anion Gap 9.7 BUN 22 H Creatinine 1.1 Est GFR (CKD-EPI 2020) 70.88 Glucose 158 H Calcium 8.5 Magnesium 1.9 Time Spent with Patient Time Spent with Patient: 25-34 minutes Time was spent: preparing to see the patient(eg.review tests), obtaining and/or reviewing separately otained hiistory, ordering medications,tests, procedures, referring, communicating with other health youth care professional, indepentently interpreting results, counseling the patient and care coordination
[2023-05-06] MEDS: levETIRAcetam 500 MG TAB PO (19:11)
[2023-05-06] MEDS: Atorvastatin 40 MG TAB PO (19:11)
[2023-05-06] MEDS: Melatonin 3 MG TAB PO (20:46)
--- NOTE | 2023-05-06 22:28 | NUR.NOTE ---
Addendum entered by Myles Johnson RN 05/06/23 22:31: pt also refusing to get in bed or be anywhere but recliner Original Note: Nursing Note: pt continually refusing to use call zuniga, and getting up on his own repeatedly. Charge made aware. pt continually found sitting on foot of recliner trying to climb out of bed.
[2023-05-06 22:37] VITALS: BP 122/68; PULSE 74; RESP 18; TEMP 36.7; O2SAT 96
[2023-05-07 02:47] VITALS: BP 130/87; PULSE 96; RESP 18; TEMP 36
[2023-05-07] MEDS: Metoprolol 12.5 MG TAB PO ×2 (05:02→13:41)
[2023-05-07] MEDS: dilTIAZem 30 MG TAB PO ×3 (05:02→16:15)
[2023-05-07] MEDS: Levothyroxine 50 MCG TAB PO (05:02)
--- NOTE | 2023-05-07 07:26 | W.PM.PROGNOT ---
Date of Service Date of service: 05/07/23 Time of Service: 07:26 Assessment and Plan Assessment and plan (1) Obstructive uropathy: Status: Acute Assessment and plan: I attempted to speak to the patient today about our long-term options to keep his bladder pressure low. Our options would include chronic catheterization versus potentially a TURP. The patient seemed to nod off quite a bit as I was speaking with him. Between that and his aphasia, I am nowhere near convinced that he currently understands his options. I will plan on giving his son to call to try to reinforce his options. We certainly have plenty of time to decide as his catheter can safely stay in place for up to a month before it would need to be changed. If/when the patient is ready for discharge, we can do so with his catheter in place. Subjective Subjective Interval history since last seen: Catheter continues to drain freely Exam Narrative Exam Narrative: His vital signs are documented elsewhere in the chart. He remains afebrile His urine is clear in the catheter drainage tubing He is sleepy but arousable. Objective Last Vital Signs Temp 36 C L 05/07/23 02:47 Pulse 96 H 05/07/23 02:47 Resp 18 05/07/23 02:47 BP 130/87 05/07/23 02:47 Pulse Ox 96 05/06/23 22:37 Laboratory Results - last 24 hr 05/06/23 06:20 Sodium 142 Potassium 3.7 Chloride 108 H Carbon Dioxide 24.3 Anion Gap 9.7 BUN 22 H Creatinine 1.1 Est GFR (CKD-EPI 2020) 70.88 Glucose 158 H Calcium 8.5 Magnesium 1.9 Time Spent with Patient Time Spent with Patient: <25 minutes Time was spent: other
[2023-05-07 07:58] VITALS: BP 157/94; PULSE 91; RESP 17; TEMP 36.4; O2SAT 99
[2023-05-07] MEDS: Nystatin CREAM 30 GM TUBE TP (09:14)
[2023-05-07] MEDS: Insulin Aspart 300 UNITS/3 ML PEN SC ×2 (09:15→11:25)
[2023-05-07] MEDS: Triamcinolone 0.1% OINT 15 GM TUBE TP (09:15)
[2023-05-07] MEDS: Normal Saline Flush 10 ML SYR IVP (09:16)
[2023-05-07] MEDS: Ascorbic Acid 500 MG TAB 1000 MG PO (09:26)
[2023-05-07] MEDS: Acetaminophen 325 MG TAB PO (09:27)
[2023-05-07] MEDS: Apixaban 5 MG TAB PO (09:27)
[2023-05-07] MEDS: Lisinopril 10 MG TAB PO (09:27)
[2023-05-07] MEDS: Multivitamin TAB 1 TAB PO (09:27)
[2023-05-07] MEDS: Calcium 600mg/Vit D 200U TAB 2 TAB PO (09:27)
[2023-05-07] MEDS: Finasteride 5 MG TAB PO (09:28)
[2023-05-07] MEDS: Cyanocobalamin 500 MCG TAB PO (09:28)
[2023-05-07] MEDS: cefTRIAXone 1 GM/50 ML BAG IVPB (09:28)
[2023-05-07] MEDS: levETIRAcetam 500 MG TAB PO (09:28)
[2023-05-07] MEDS: Tamsulosin 0.4 MG CAPCR PO (09:28)
[2023-05-07 11:30] VITALS: BP 125/81; PULSE 78; RESP 17; TEMP 36.8; O2SAT 100
--- NOTE | 2023-05-07 11:58 | PT.INTREAT ---
Date of service: 05/07/23 Time of Service: 11:22 PT Notes Visit Reasons: Seizure Disorder, Left CVA, CAF Inpatient Physical Therapy Treatment Note [facility] Date: 05/07/23 PRECAUTIONS: Fall, standard, activity as tolerated, Romero in place, RANDALL alarm in place and active, IV access RUE SUBJECTIVE: Patient agreeable to therapy, sitting in recliner with feet elevated, refuses gait belt. AFTERNOON: Patient sitting up in chair with legs elevated, agreeable to therapy, refuses gait belt. Indicates he expects to go home today, indicates frustration with not knowing when. OBJECTIVE: PAIN: none reported BED MOBILITY/TRANSFERS Sit-stand: SBA Stand-sit: SBA Bed-Chair: SBA Chair-bed: SBA GAIT Assistive Device: FWW Weight bearing: full Assist: SBA Distance: 200 feet AFTERNOON 650 feet. Deviation: Head forward, stooped posture, head tilted to right. VITALS: monitored by nursing via telemetry STAIRS: Patient refuses gait belt a second time at base of the stairs. Ascends and descends 21 six inch stairs with bilateral railings and SBA; no LOB, no SOB. ASSESSMENT: Patient tolerates therapy well, reports he is feeling stronger. AFTERNOON: Patient tolerates therapy well, reports fatigue. PLAN: Continue progression of plan of care until patient is medically cleared for discharge. TREATMENT CODE/TIME: [id number] Gait 15 minutes beginning at 11:22 AFTERNOON: [id number] Gait 12 minutes beginning at 16:25
[2023-05-07 15:22] VITALS: BP 122/69; PULSE 82; RESP 18; TEMP 36.6; O2SAT 99
--- NOTE | 2023-05-07 17:04 | PDOC.CMDIS ---
Date of service: 05/07/23 Time of Service: 17:04 LACE Index Scoring Tool Questions: Length of Stay (in days): 4 - 6 Was the patient admitted via the E.D.?: Yes Comorbidities: Cerebrovascular Disease E.D. Visits: 2 Answers: Total Score: 10 Risk of Readmission: High Risk Care Management Discharge Plan Reason for Hospitalization: seizure Discharge Plan: Eugene will return home today with new orders for DEVAN RN, PT. His thornton catheter will remain upon discharge, and he will follow up with Urology regarding options going forward. His son will drive him home via private vehicle. He will follow up with his PCP, Urology, and his discharge plan of care. Patient/Family Education Needs: Review discharge instructions and limitations, discussion of self care needs including ask me three. Services Needed at Discharge: Home Health Care Services (new [facility] RN, PT)
--- NOTE | 2023-05-07 17:40 | DSE_ITS ---
Date of service: 05/07/23 Time of Service: 17:40 DS: Diagnosis Discharge Diagnosis (1) Obstructive uropathy: Status: Resolved Discharge Plan Disposition Patient Disposition: Home W/Home Health Services Condition: Fair Discharge Details Reason For Visit: Seizure Disorder, Left CVA, CAF Admit Date/Time: 05/02/23 19:17 Admit Provider: Carmelo Nunn Attending Provider: Carmelo Nunn Primary Care Provider: [facility] Hospital Course Hospital Course: This is a 72 year old male patient with past medical history of CVA several months ago, T2D, urinary tract issues, who presented to the [facility] ED with focal seizures, having received diastat at PCP office. He has chronic Afib on Apixaban. 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 He had a MRI of the brain which showed old infarcts in the left frontal parietal watershed and the right cerebellum, no evidence of an acute territorial infarct, and findings of small vessel ischemic disease and age-related cerebral atrophy.?Neurology was consutled, patient will follow up with neurology on an out patient basis. He was started on Keppra for seizure management. In the ED he was also found to have a UTI, with increased serum creatinine. A CT scan showed bilateral hydronephrosis and hydroureter with no renal or ureteral stones.? His bladder wall was thickened but his bladder was not distended. He was on Cipro at home and this was stopped. Ceftriaxone IV was started. Renal ultrasound showed no significant focal findings in the kidneys no hydronephrosis, this was done after a urinary catheter was placed. Urine culture grew E Coli. Renal CT showed the wall of the urinary bladder is thickened but difficult to evaluate because the bladder is collapsed around an indwelling Romero catheter. Urology was consulted recommending indwelling urinary catheter remain in place until infection clears. He will follow up with urology outpatient regarding future options including possible surgery. While hospitalized he was found to have sustained hypertension and his dose of lisinopril was increased to 10 mg daily which shoud be closely monitored on discharge by his PCP. Echo showed EF 50-55% with no segmental WMA. He was evaluated by PT and they recommend he has home health PT to continue strengthening and skilled therapy interventions around balance and safety awareness. He is being discharged with indwelling urinary catheter, he is unable to perform CIC and his family declines assistance with CIC. He was prescribed cefpodoxime for 7 days. Home health services for nursing, PT, SAMPLE CHECKER. Home Meds and New Rx's Prescriptions: New levetiracetam 500 mg Tablet 500 mg PO BID Qty: 60 0RF cefpodoxime 200 mg tablet 200 mg PO BID Qty: 13 0RF Rx Instructions: must administer with a meal/food Continued finasteride 5 mg tablet 5 mg PO DAILY Qty: 90 3RF phenazopyridine [Pyridium] 200 mg tablet 200 mg PO TID PRN (Reason: pain) Qty: 20 0RF Patient Comments: Medication not on med list from PCP 12/03/22 CT Eliquis 5 mg tablet 5 mg PO BID Qty: 180 3RF nystatin 100,000 unit/gram cream 1 applic topical BID Qty: 30 2RF Patient Comments: Medication not on med list from PCP 12/03/22 CT metformin 1,000 mg tablet 1,000 mg PO BID multivitamin [Daily Vitamin] 1 EACH tablet 2 ea PO DAILY Patient Comments: Medication not on med list from PCP 12/03/22 CT cyanocobalamin (vitamin B-12) [Vitamin B-12] 500 MCG tablet 500 mcg PO DAILY Patient Comments: T REPORTS HE NO LONGER TAKES calcium carbonate-vitamin D3 [Calcium 600 + D(3)] 1 EACH tablet 2 ea PO DAILY Patient Comments: PT REPORTS HE NO LONGER TAKES iron 159 mg (45 mg iron) tablet extended release 159 mg PO DAILY Patient Comments: 07/28/19 65 mg daily. si Rx Instructions: NOT SURE OF DOSE Farxiga 10 mg tablet 10 mg PO DAILY Qty: 90 3RF Patient Comments: PT REPORTS HE NO LONGER TAKES lovastatin 20 mg tablet 20 mg PO DAILY Qty: 90 3RF diltiazem HCl [Tiadylt ER] 300 mg capsule,extended release 24 hr 300 mg PO DAILY semaglutide 7 mg tablet 7 mg PO DAILY Patient Comments: Medication not on med list from PCP 12/03/22 CT insulin glargine [Lantus U-100 Insulin] 100 unit/mL solution 10 unit subcut QPM acetaminophen 325 mg capsule 650 mg PO ONCE PRN atorvastatin 40 mg tablet 40 mg PO DAILY docusate sodium [Colace] 100 mg capsule 100 mg PO DAILY insulin lispro [Humalog KwikPen Insulin] 100 unit/mL insulin pen 1 sliding scale dose subcut USEASDIRECTD senna 8.6 mg capsule 8.6 mg PO DAILY metoprolol tartrate 50 mg tablet 50 mg PO BID diltiazem HCl 60 mg tablet 60 mg PO BID triamcinolone acetonide 0.1 % ointment 1 applic TOPICAL DAILY Patient Comments: APPLY TOPICALLY DIRECTED TO THE SKIN OF THE LOWER LEGS EVERY NIGHT. Pt reports not using this cREAM. furosemide 20 mg tablet 40 mg PO DAILY Patient Comments: Take 1 tablet by mouth every morning Dr. Cuellar- Cardiology tamsulosin [Flomax] 0.4 mg capsule 0.4 mg PO DAILY Qty: 10 0RF Patient Comments: PT REPORTS HE DOESNT USE THIS MED. Vitamin C 1,000 MG tablet extended release 1,000 mg PO DAILY Patient Comments: PT REPORTS HE NO LINGER TAKES omega-3 fatty acids [Fish Oil Concentrate] 1,000 mg Capsule 2,400 mg PO DAILY Patient Comments: Medication not on med list from PCP 12/03/22 CT levothyroxine 50 mcg tablet 50 mcg PO DAILY Patient Comments: Take 1 tablet by mouth once a day Take on an empty stomach 30 minutes before breakfast or other medications Changed lisinopril 5 mg tablet 10 mg PO DAILY Qty: 90 3RF Discontinued ciprofloxacin HCl [Cipro] 250 mg tablet 250 mg PO BID Discharge Instructions Instructions: Urinary Tract Infection in Men (GEN), Romero Catheter Placement and Care (GEN) Additional Instructions: Follow up with Dr Osuna. Home health will call you with a date and time for them to come to your home. You are being discharged with the urinary catheter to remain in place. Increase Lisinopril to 10 mg daily Stand Alone Forms: Nursing Discharge Form Referrals: Deacon Reynolds NP [NURSE PRACTITIONER] - 05/21/23 10:45 am (Please follow up HTN, we increased Lisinopril to 10 mg daily.) Tamir Osuna MD [ [facility] STAFF PHYSICIAN] - (Please call the office at [phone] tomorrow to schedule a follow-up appointment.) Activity:: Activity as Tolerated Equipment/Supplies:: No Equipment Needed Diet:: As Tolerated Discharge Orders Discharge Orders: Discharge Order (Routine); Ordered 05/07/23 Ordered By: Jeana Angeles Discharge Data Discharge Date/Time-TO BE ENTERED AT DEPARTURE: 05/07/23 18:41 Discharge Comment: home with son, HH to follow DS: Summary Time Spent with Patient providing and/or coordinating discharge services: Greater than 30 minutes Status at Discharge Functional status at discharge: uses cane/walker Overall status at discharge: patient is progressing back to baseline Mental Status: other (aphasia) Speech and Movement: other Mood: anxious mood and other (aphasia) Affect: labile affect Exam Narrative Exam Narrative: General: Pleasant elderly male who gives yes/no/good answers, and nods/shakes his head, sitting up in a chair HEENT: EOMI, MMM Heart: irregularly irregular rhythm, no m/r/g Lungs: CTAB Abdomen: soft, nontender, nondistended Extremities: no edema BLEs Psych Mental Status: other (aphasia) Speech and Movement: other Mood: anxious mood and other (aphasia) Affect: labile affect DS: Data Vitals/I&O Vitals and I&O: Vital Signs Temperature 36.6 C 05/07/23 15:22 Temperature Source Tympanic 05/07/23 15:22 Pulse 82 05/07/23 15:22 Pulse Rhythm Irregular 05/07/23 15:45 Pulse 123 H 05/03/23 16:00 Respiratory Rate 18 05/07/23 15:22 Respiratory Effort Normal, Non-Labored 05/07/23 15:45 Respiratory Depth Normal 05/07/23 15:45 Respiratory Pattern Normal 05/07/23 15:45 Blood Pressure 122/69 05/07/23 15:22 Blood Pressure Mean 75 05/04/23 12:25 Blood Pressure Position Supine 05/02/23 22:59 Pulse Oximetry 99 05/07/23 15:22 Oxygen Delivery Method Room Air 05/07/23 15:22 Oxygen Flow Rate 0 05/07/23 15:22 Pain Level 0 05/07/23 11:30 Comment RN informed of BP 05/07/23 07:58 Intake & Output 05/06/23 05/07/23 05/07/23 23:59 11:59 23:59 Output Total 250 / 1950 1750 / 1750 Balance -250 / -1900 -1750 / -1750 Output: Urine 250 / 1950 1750 / 1750 Other: Urine Color Straw Pale Yellow Urine Appearance Clear Sediment Urine Odor None Stool Size Small Smear Stool Characteristics Formed Brown Dozier Voiding Methods Indwelling Catheter PFSH All Active Problems (Updated 05/08/23 @ 00:19 by ZAID HECTOR) 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 denies this Atopic conjunctivitis (10/22/13) Atrial fibrillation Benign prostatic hyperplasia (02/25/13) Bladder cancer Carpal tunnel syndrome Chronic anticoagulation Chronic venous stasis Creatinine elevation Dementia Depressive disorder (02/25/13) Diabetes mellitus (02/25/13) Diabetic leg ulcer Elevated WBCs Essential hypertension (06/24/13) Frequency of micturition (01/03/16) Glaucoma (10/22/13) B/L Gross hematuria History of depression Hyperglycemia Hyperlipidemia (02/25/13) Hypermetropia (10/22/13) Hypertension Hypogonadism Idiopathic peripheral neuropathy Iron deficiency Low back pain (08/10/08) Noncompliance Nuclear senile cataract (10/22/13) Obesity (08/10/08) Aviva-en-y 02/2014 Olecranon bursitis CARLOS A on CPAP Osteoarthritis (08/10/08) BILATERAL KNEE replacements Peptic reflux disease (08/10/08) Peripheral neuralgia Peripheral neuropathy Phimosis Presbyopia (10/22/13) Pterygium (08/10/08) LEFT EYE Regular astigmatism (10/22/13) Sensorineural hearing loss, bilateral (09/05/17) Tubular adenoma Tubular and tubulovillous adenoma 2011 --suggested repeat 2017 Type 2 diabetes mellitus Ulcer of hermosillo limited to breakdown of skin Umbilical hernia (08/18/12) Ureterolithiasis Urgency of urination (01/03/16) Urinary tract infection UTI (urinary tract infection) Varicose veins of lower extremity (08/10/08) Venous insufficiency Venous insufficiency (chronic) (peripheral) Surgical History History of transurethral destruction of bladder lesion Hx of total knee arthroplasty Pt reports he has had a left and right knee repacement. Pt doesnt remember when and thinks he had it done at [facility] [place] Fundoplication Repair of umbilical hernia Laparoscopic Aviva-en-y surgery for weight loss S/P cholecystectomy (~01/04/21) acute hemorrhagic cholecystitis and xanthogranulomatous inflammation S/P colonoscopy Haddad-2011- tubular and tubulovillous polyps Henderson2019- sessile serrated with low grade dysplacia, tubullovillous with high grade dysplacia and tubular adenomas S/P partial colectomy (~05/09/20) Status post abdominoplasty (05/23/16) Status post cholecystectomy Status post tonsillectomy Status post total knee replacement B/L Vasectomy Family History Mother Cancer Father Heart disease Sister Cancer Sister No problems noted. Brother No problems noted. Brother No problems noted. Brother No problems noted. Son No problems noted. Son No problems noted. Son No problems noted. Social History Smoking/Tobacco Use Status: Never Second Hand Exposure: Yes Smoking risk assessment performed?: Yes Alcohol Intake: never Drug use: Never Substance use type: does not use Caregiver/Support person: No Household members: other Details: son Housing: house Communication Needs: None Education Level: high school Do you need help understanding health information?: Never Pets and animals: No Do you think of yourself as: straight/heterosexual Current gender identity: male What is your relationship status?: How often do you talk on the phone with friends or family?: once per week How often do you get together with friends or relatives?: decline to answer How often do you attend restoration or tenriism services?: decline to answer Do you belong to any clubs or organized social groups?: no Panel score (0-1 are the most socially isolated patients): 0 What type of physical activity do you participate in: walking Duration: 15-30 minutes/day Frequency: 1-2 times per week Velia/Congregational: Zoroastrianism Special velia needs: No Seatbelt use: always Helmet use: No Drive intox or ride w/intox local tanker truck driver: No Do you feel safe at home: Yes Do you feel safe in your relationship?: Yes Time Spent with Patient Time Spent with Patient: 45-69 minutes Time was spent: preparing to see the patient(eg.review tests), ordering medications,tests, procedures, referring, communicating with other health certified caregiver, indepentently interpreting results and counseling the patient
[2023-05-07] MEDS: Cefpodoxime 200 MG TAB PO (18:19)
--- NOTE | 2023-05-07 20:05 | PDOC.HHF2F_ITS ---
Home Health Referral Home Health Orders Clinical synopsis of why skilled professionals are needed: This is a 72 year old male patient with past medical history of CVA several months ago, T2D, urinary tract issues, who presented to the [facility] ED with focal seizures, having received diastat at PCP office. He has chronic Afib on Apixaban. 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 He had a MRI of the brain which showed old infarcts in the left frontal parietal watershed and the right cerebellum, no evidence of an acute territorial infarct, and findings of small vessel ischemic disease and age-related cerebral atrophy.?Neurology was consutled, patient will follow up with neurology on an out patient basis. He was started on Keppra for seizure management. In the ED he was also found to have a UTI, with increased serum creatinine. A CT scan showed bilateral hydronephrosis and hydroureter with no renal or ureteral stones.? His bladder wall was thickened but his bladder was not distended. He was on Cipro at home and this was stopped. Ceftriaxone IV was started. Renal ultrasound showed no significant focal findings in the kidneys no hydronephrosis, this was done after a urinary catheter was placed. Urine culture grew E Coli. Renal CT showed the wall of the urinary bladder is thickened but difficult to evaluate because the bladder is collapsed around an indwelling Romero catheter. Urology was consulted recommending indwelling urinary catheter remain in place until infection clears. He will follow up with urology outpatient regarding future options including possible surgery. While hospitalized he was found to have sustained hypertension and his dose of lisinopril was increased to 10 mg daily which shoud be closely monitored on discharge by his PCP. Echo showed EF 50-55% with no segmental WMA. He was evaluated by PT and they recommend he has home health PT to continue strengthening and skilled therapy interventions around balance and safety awareness. He is being discharged with indwelling urinary catheter, he is unable to perform CIC and his family declines assistance with CIC. He was prescribed cefpodoxime for 7 days. 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 Medical diagnosis necessitation home health referral: Seizure, UTI, indwelling urinary catheter s/t hydronephrosis. Registered Nurse: Check all that apply Instruct on new or changed medication(s)/assess compliance: Ordered Instruct on, and maintenance of, urinary device: Ordered Assess for exacerbation of medical condition, instruct patient/caregivers on signs and symptoms to report for early detection: Ordered Physical Therapist: Check all that apply Increase strength & endurance for safe mobility at home: Ordered To design/establish home maintenance program: Ordered Fall reduction therapy program for patient with history of frequent falls: Ordered Home safety evaluation and teaching/gait training including stair management (if applicable): Ordered Cardroom Attendant: Assist with community resources: Ordered Assist with regional intermodal truck driver care planning: Ordered Home Bound Status Requires the aid of supportive device (check all that apply): Cane and Wheelchair Patient has a condition such that leaving home is medically contraindicated (Describe): Indwelling urinary catheter, fall risk, unable to ambulate safely without assistance from at lease one person and/or walker/wheelchair. Describe why leaving home would require a considerable and taxing effort: Safety Concerns: describe (weak, fall risk, indwelling urinary catheter) Encounter Date and Reason: I certify that a FTF encounter for this patient was performed on May 07, 2023 and that such encounter was related to the primary reason the patient requires home health services. The encounter was conducted in the following manner: * By me as the certifying physician, GROOMING ASSISTANT, PA or * By an inpatient physician, GROOMING ASSISTANT or PA during an inpatient stay who communicated findings to me, Certification And Authentication I certify that I composed the above information based on my clinical judgment relating to this patient's medical condition and, if applicable, clinical findings communicated to me by the NPP or inpatient physician who performed the FTF encounter. Name of Provider that will be monitoring home health services: Deacon Vizcarra
--- NOTE | 2023-05-08 15:59 | INDS_ITS ---
PT Notes Visit Reasons: Seizure Disorder, Left CVA, CAF Physical Therapy Inpatient Discharge Summary Date: 05/07/2023 Dates of Service: 05/03/2023 through 05/07/2023 This is a clinical summary of care provided for the duration of dates listed above. No charge was made in the completion of this documentation. Referring Doctor:? Bari Jane,? PT Orders: PT CONSULT: Eval/Treat Precautions: Fall. Standard. Activity as tolerated. Patient Profile/Admitting Diagnosis:? Eugene is a 72-year-old male with past medical history significant for CVA 4 months ago who presented to the ED on 05/02/2023 due to seizure-like activity.? Patient is admitted for management of seizure, CVA, atrial fibrillation, UTI, type 2 diabetes mellitus and essential hypertension. 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 Acute kidney injury superimposed on chronic kidney disease Anxiety (08/10/08) Asbestosis (08/10/08) Asthma (07/08/12) pt. denies this Atopic conjunctivitis (10/22/13) Atrial fibrillation Benign prostatic hyperplasia (02/25/13) Bladder cancer Carpal tunnel syndrome Chronic anticoagulation Chronic venous stasis Creatinine elevation Dementia Depressive disorder (02/25/13) Diabetes mellitus (02/25/13) Diabetic leg ulcer Elevated WBCs Essential hypertension (06/24/13) Frequency of micturition (01/03/16) Glaucoma (10/22/13) B/L Gross hematuria History of depression Hyperglycemia Hyperlipidemia (02/25/13) Hypermetropia (10/22/13) Hypertension Hypogonadism Idiopathic peripheral neuropathy Iron deficiency Low back pain (08/10/08) Noncompliance Nuclear senile cataract (10/22/13) Obesity (08/10/08) Aviva-en-y? 02/2014 Olecranon bursitis CARLOS A on CPAP Osteoarthritis (08/10/08) BILATERAL KNEE replacements Peptic reflux disease (08/10/08) Peripheral neuralgia Peripheral neuropathy Phimosis Presbyopia (10/22/13) Pterygium (08/10/08) LEFT EYE Regular astigmatism (10/22/13) Sensorineural hearing loss, bilateral (09/05/17) Tubular adenoma Tubular and tubulovillous adenoma 2011 --suggested repeat 2017 Type 2 diabetes mellitus Ulcer of hermosillo limited to breakdown of skin Umbilical hernia (08/18/12) Ureterolithiasis Urgency of urination (01/03/16) Urinary tract infection UTI (urinary tract infection) Varicose veins of lower extremity (08/10/08) Venous insufficiency Venous insufficiency (chronic) (peripheral) Surgical History? History of transurethral destruction of bladder lesion Hx of total knee arthroplasty Pt reports he has had a left and right knee repacement. Pt doesnt remember when and thinks he had it done at [facility] Fundoplication Repair of umbilical hernia [id number] surgery for weight lossS/P cholecystectomy (~01/04/21) acute hemorrhagic cholecystitis and xanthogranulomatous inflammation S/P colonoscopy Haddad-2011- tubular and tubulovillous polyps Santiago- 2019- sessile serrated with low grade dysplacia, tubullovillous with high grade dysplacia and tubular adenomas S/P partial colectomy (~05/09/20) Status post abdominoplasty (05/23/16) Status post cholecystectomy Status post tonsillectomy Status post total knee replacement B/L Vasectomy Social History/Home Situation: Lives with son in a private home.? Son does not work and provides needed assistance for father at home.? Ambulatory with FWW at home. Equipment Owned/DME: FWW Subjective: NT. See most recent ARCHITECTURE PROFESSOR notes. Objective: General Observation: NT. See most recent ARCHITECTURE PROFESSOR notes. Mental Status: NT. See most recent ARCHITECTURE PROFESSOR notes. Pain: NT. See most recent ARCHITECTURE PROFESSOR notes. Vital Signs: NT. See most recent ARCHITECTURE PROFESSOR notes. ROM: Right Upper Extremity: ? Shoulder Flexion WFL. Shoulder abduction WFL. Elbow flexion WFL. Wrist flexion WFL. Functional opening and closing of hand WFL. Left Upper Extremity:? Shoulder Flexion WFL. Shoulder abduction WFL. Elbow flexion WFL. Wrist flexion WFL. Functional opening and closing of hand WFL. Right Lower Extremity: Hip flexion lacks the last 25% of AROM. Hip abduction lacks the last 25% of AROM. Knee flexion 10 to 90 degrees.? Knee extension -10 degrees.? Ankle dorsiflexion unable to follow strength testing instruction but was able to demonstrate needed dorsiflexion during walking. Ankle plantarflexion WFL. Left Lower Extremity: Hip flexion WFL. Hip abduction WFL. Knee flexion WFL. Ankle dorsiflexion Ankle dorsiflexion unable to follow strength testing instruction but was able to demonstrate needed dorsiflexion during walking. Ankle plantarflexion WFL. Strength: Right Upper Extremity: Shoulder flexors 4-/5. Shoulder abductors 4-/5. Elbow flexors 4-/5. Elbow extensors 4-/5. Lithographic Retoucher Apprentice weaker than R but functional. Left Upper Extremity: Shoulder flexors 4/5. Shoulder abductors 4/5. Elbow flexors 5/5. Elbow extensors 5/5. Lithographic Retoucher Apprentice strong. Right Lower Extremity: Hip flexors 3-/5. Hip abductors 3-/5. Knee flexors 3-/5. Knee extensors 3-/5. Ankle dorsiflexors 3-/5. Ankle plantarflexors 4-/5. Left Lower Extremity: Hip flexors 4/5. Hip abductors 4/5. Knee flexors 4/5. Knee extensors 4/5. Ankle dorsiflexors 3/5. Ankle plantarflexors 4/5. BED MOBILITY/TRANSFERS ? Sit-stand: SBA? Stand-sit: SBA ? Bed-Chair: SBA ? Chair-bed: SBA ? GAIT? Assistive Device: FWW? Weight bearing: full Assist: SBA ? Distance:? 200 feet AFTERNOON 650 feet.? Deviation: Head forward, stooped posture, head tilted to right. ? VITALS:? monitored by nursing via telemetry ? STAIRS: Patient refuses gait belt a second time at base of the stairs. Ascends and descends 21 six inch stairs with bilateral railings and SBA; no LOB, no SOB.? Balance: Static Sitting: Normal Dynamic Sitting: Normal Static Standing: Fair Dynamic Standing: Fair Special Tests: Mobility Limitations Standardized Measure [facility]-PAC 6 clicks Basic Mobility Inpatient Short Form: Raw Score: 24? CMS Score: 0% deficit? ? ? Assessment: Patient demosntrated good functional mobility outcomes as can be seen in the the goals below but continues to require stand by assist for all mobility ADL performance. He will beenfit from PT services to continue mobility ADL progression and balance retraining. Goals: Goals X1 week 1. Supine-Sit independent NOT MET 2. Sit-Supine independent NOT MET 3. Sit-Stand independent NOT MET 4. Stand-Sit independent with FWW NOT MET 5. Bed-Chair independent with FWW NOT MET 6. Chair-Bed independent with FWW NOT MET 7. Independent gait on level surface with use of FWW for at least 300 feet without report of pain nor dyspnea NOT MET 8. Independent stair negotiation while holding onto no rails for at least 3 steps without report of pain nor dyspnea NOT MET 9. Independent with home exercise program NOT MET 10. Good static and dynamic standing balance/tolerance NOT MET DISCHARGE RECOMMENDATIONS: [] ? Home with no services [] [X] ? Home with services.? Patient will benefit from home health PT services in order to progress mobility level using least restrictive assistive ambulatory device, assess home safety, identify additional equipment needs, and establish a functional maintenance program that will increase ability of patient to remain at home. [] ? Home with outpatient PT [] [] ? SNF for continued rehabilitation [] [] ? [facility] [employer] [facility] [] [] ? SNF versus LTC based on ability to participate and progress [] TREATMENT CODE/TIME: SD Thank you for the opportunity to participate in the care of this patient. Kenia Giordano PT, DPT, CLT [facility] [place], [place]
== END 2023-05-07 18:41 | disposition home health service (06) | DRG 101 ==
LOC: ER 19:29 → ICU 22:07 → MS 05-04 17:53
PROVIDERS: Family Medicine; Internal Medicine; Admitting Provider Family Medicine; Emergency Provider Registered Nurse Emergency; PCP Internal Medicine; Visit Provider Family Medicine
DX: N17.9 Acute kidney failure, unspecified (principal); R56.9 Unspecified convulsions; I67.89 Other cerebrovascular disease; N39.0 Urinary tract infection, site not specified; N13.1 Hydronephrosis with ureteral stricture, not elsewhere classified; I48.91 Unspecified atrial fibrillation; E11.9 Type 2 diabetes mellitus without complications; I10 Essential (primary) hypertension; I69.320 Aphasia following cerebral infarction; G47.33 Obstructive sleep apnea (adult) (pediatric); Z79.84 Long term (current) use of oral hypoglycemic drugs; Z79.4 Long term (current) use of insulin; N18.9 Chronic kidney disease, unspecified; F41.9 Anxiety disorder, unspecified; J61 Pneumoconiosis due to asbestos and other mineral fibers; N40.0 Benign prostatic hyperplasia without lower urinary tract symptoms; C67.9 Malignant neoplasm of bladder, unspecified; Z79.01 Long term (current) use of anticoagulants; I87.2 Venous insufficiency (chronic) (peripheral); F03.90 Unspecified dementia, unspecified severity, without behavioral disturbance, psychotic disturbance, mood disturbance, and anxiety; F32.A Depression, unspecified; I12.9 Hypertensive chronic kidney disease with stage 1 through stage 4 chronic kidney disease, or unspecified chronic kidney disease; H40.9 Unspecified glaucoma; R35.0 Frequency of micturition; E78.5 Hyperlipidemia, unspecified; E11.42 Type 2 diabetes mellitus with diabetic polyneuropathy; M54.50 Low back pain, unspecified; Z98.84 Bariatric surgery status; R31.0 Gross hematuria; E61.1 Iron deficiency; Z96.653 Presence of artificial knee joint, bilateral; H90.3 Sensorineural hearing loss, bilateral; B96.20 Unspecified Escherichia coli [E. coli] as the cause of diseases classified elsewhere; Z66 Do not resuscitate; Z87.442 Personal history of urinary calculi
CPT/HCPCS: 36415; 76770; 80048; 80053; 80307; 85027; 87077; 93005; 93306; 95819; 96374; 97110; 97112; 97116; 97162; 97530; 99222; 99231; 99285; 70450; 70551; 71046; 74176; 81003; 81015; 82272; 83735; 84443; 84484; 85025; 87086; 87186; 93010; 99223; 99232; 99233; J0696; J1953; J2250; J3475; J3490

== ENCOUNTER → 2023-05-06 07:47 | Outpatient (BNVA) | payer MEDICARE, SELFPAY | PROVIDERS: PCP Internal Medicine; Referring Provider Internal Medicine; Visit Provider Urology ==

== ENCOUNTER → 2023-05-13 11:26 | Outpatient (BNVA) | payer MEDICARE, SELFPAY | PROVIDERS: PCP Family Medicine; Referring Provider Internal Medicine; Visit Provider Urology | DX: N13.9 Obstructive and reflux uropathy, unspecified (principal); Z79.01 Long term (current) use of anticoagulants | CPT/HCPCS: 99214 ==

== ENCOUNTER → 2023-05-13 12:16 | Outpatient (BNVA) | payer MEDICARE, SELFPAY | PROVIDERS: PCP Family Medicine; Referring Provider Internal Medicine; Visit Provider Psychiatry & Neurology Neurology ==

== ENCOUNTER 2023-05-13 18:42 | Emergency (ER) | payer MEDICARE, SELFPAY ==
[2023-05-13] VITALS (29 sets, daily range): BP systolic 121–177; BP diastolic 66–127; PULSE 68–100; RESP 9–24; TEMP 36.8; O2SAT 96–100
--- NOTE | 2023-05-13 18:56 | ED.GENADUL_ITS ---
Discharge Plan Disposition Patient Disposition: Home Condition: Improving Discharge Details Clinical Impression: Congestive heart failure (CHF), Atrial fibrillation, Diastolic dysfunction Primary Care Provider: David Massey ED Provider: Jaxon Horowitz Meds and New Rx's Prescriptions: Continued finasteride 5 mg tablet 5 mg PO DAILY Qty: 90 3RF phenazopyridine [Pyridium] 200 mg tablet 200 mg PO TID PRN (Reason: pain) Qty: 20 0RF Patient Comments: Medication not on med list from PCP 12/03/22 CT Eliquis 5 mg tablet 5 mg PO BID Qty: 180 3RF nystatin 100,000 unit/gram cream 1 applic topical BID Qty: 30 2RF Patient Comments: Medication not on med list from PCP 12/03/22 CT metformin 1,000 mg tablet 1,000 mg PO BID levetiracetam 500 mg tablet 500 mg PO BID Qty: 180 3RF multivitamin [Daily Vitamin] 1 EACH tablet 2 ea PO DAILY Patient Comments: Medication not on med list from PCP 12/03/22 CT cyanocobalamin (vitamin B-12) [Vitamin B-12] 500 MCG tablet 500 mcg PO DAILY Patient Comments: T REPORTS HE NO LONGER TAKES calcium carbonate-vitamin D3 [Calcium 600 + D(3)] 1 EACH tablet 2 ea PO DAILY Patient Comments: PT REPORTS HE NO LONGER TAKES iron 159 mg (45 mg iron) tablet extended release 159 mg PO DAILY Patient Comments: 07/28/19 65 mg daily. si Rx Instructions: NOT SURE OF DOSE Farxiga 10 mg tablet 10 mg PO DAILY Qty: 90 3RF Patient Comments: PT REPORTS HE NO LONGER TAKES lovastatin 20 mg tablet 20 mg PO DAILY Qty: 90 3RF diltiazem HCl [Tiadylt ER] 300 mg capsule,extended release 24 hr 300 mg PO DAILY semaglutide 7 mg tablet 7 mg PO DAILY Patient Comments: Medication not on med list from PCP 12/03/22 CT insulin glargine [Lantus U-100 Insulin] 100 unit/mL solution 10 unit subcut QPM acetaminophen 325 mg capsule 650 mg PO ONCE PRN atorvastatin 40 mg tablet 40 mg PO DAILY docusate sodium [Colace] 100 mg capsule 100 mg PO DAILY insulin lispro [Humalog KwikPen Insulin] 100 unit/mL insulin pen 1 sliding scale dose subcut USEASDIRECTD senna 8.6 mg capsule 8.6 mg PO DAILY metoprolol tartrate 50 mg tablet 50 mg PO BID diltiazem HCl 60 mg tablet 60 mg PO BID triamcinolone acetonide 0.1 % ointment 1 applic TOPICAL DAILY Patient Comments: APPLY TOPICALLY DIRECTED TO THE SKIN OF THE LOWER LEGS EVERY NIGHT. Pt reports not using this cREAM. furosemide 20 mg tablet 40 mg PO DAILY Patient Comments: Take 1 tablet by mouth every morning Dr. Cuellar- Cardiology tamsulosin [Flomax] 0.4 mg capsule 0.4 mg PO DAILY Qty: 10 0RF Patient Comments: PT REPORTS HE DOESNT USE THIS MED. Vitamin C 1,000 MG tablet extended release 1,000 mg PO DAILY Patient Comments: PT REPORTS HE NO LINGER TAKES omega-3 fatty acids [Fish Oil Concentrate] 1,000 mg Capsule 2,400 mg PO DAILY Patient Comments: Medication not on med list from PCP 12/03/22 CT levothyroxine 50 mcg tablet 50 mcg PO DAILY Patient Comments: Take 1 tablet by mouth once a day Take on an empty stomach 30 minutes before breakfast or other medications lisinopril 5 mg tablet 10 mg PO DAILY Qty: 90 3RF cefpodoxime 200 mg tablet 200 mg PO BID Qty: 13 0RF Rx Instructions: must administer with a meal/food Discharge Instructions Instructions: Heart Failure (ED), A-fib (Atrial Fibrillation) (ED) Discharge Data Discharge Physician: Jaxon Horowitz Medical Decision Making MDM: Summary: Patient history of stroke and acute on chronic renal failure with A-fib and history of CHF WITH complaint of shortness of breath his oxygen saturation is being 96 to 100% on room air. On exam he is got mild rales in the bases. Labs show a mild elevation of the BNP. Bedside echocardiography POCUS shows mild left ventricular dysfunction with A-fib low IVC collapsibility and just mild interstitial infiltrate with B-lines in both bases. Chest x-ray does not show any abnormality. This patient probably has mild congestive heart failure and will be treated with Lasix since oxygen saturation was normal will be discharged home he is does take Lasix at home. D-dimer was mildly elevated but it did suggest to his age. Data Review Analysis All the data on this patient was reviewed by me including laboratory and imaging studies as well as bedside studies performed by me Independent review of Studies Imaging Suspicious for abnormality POCUS lung exam shows mild alveolar infiltrates in the bases of both lungs Lab: Labs show elevation of the BNP, mild elevation of the potassium with elevation of the BUN to creatinine ratio which is chronic. Risk Stratification: Patient with probably diastolic dysfunction and mild diastolic heart failure with good systolic function who comes with mild bilateral interstitial infiltrate by bedside lung sonography. He was given Lasix 40 mg IV and his oxygen level has remained at 90% on room air. He will be discharged back home with his son. Differential Diagnosis: 1. Diastolic heart failure 2. Renal failure 3. Atrial fibrillation 4. 5. Consultants: Shared disposition: Patient states he feels better and wants to go home as expressed in writing and his son will case picker Impression: Medical Records Medical records reviewed: Yes I reviewed the patient's medical records. Lab Data Lab results reviewed: Yes I reviewed the patient's lab results. ECG Data Attestation: I personally reviewed and interpreted this ECG (s) as follows: Prior ECG tracings: available for review Interpretation: Atrial fibrillation heart rate of 78 occasional PVCs no acute ST-T changes HPI General Date/Time Provider Initiated Documentation: 05/13/23 18:52 . HPI Narrative: Patient presents emergency department with son stating that he still feels shortness of breath. Son states that he has been pacing and not sleeping at night the patient is aphasic but understands and the history is being obtained from the son. According to the son he denies any chest pain does report that he had an episode of difficulty breathing which according to his son apparently is improved and he was concerned that he was having a panic attack. Related Data Home Medications Medication Instructions Recorded Confirmed calcium carbonate 600 mg-vitamin 2 ea PO DAILY 03/29/14 05/13/23 D3 10 mcg (400 unit) tablet (Calcium 600 + D(3)) cyanocobalamin (vitamin B-12) 500 500 mcg PO DAILY 03/29/14 05/13/23 mcg tablet (Vitamin B-12) multivitamin (Daily Vitamin tablet) 2 ea PO DAILY 03/29/14 05/13/23 ascorbic acid (vitamin C) 1,000 mg 1,000 mg PO DAILY 01/03/18 05/13/23 tablet,extended release (Vitamin C ER) omega-3 fatty acids 1,000 mg 2,400 mg PO DAILY 10/20/18 05/13/23 capsule (Fish Oil Concentrate) ferrous sulfate, dried 159 mg (45 159 mg PO DAILY 07/28/19 05/13/23 mg iron) tablet,extended release (iron ER) finasteride 5 mg tablet 5 mg PO DAILY #90 tabs 04/27/20 05/13/23 dapagliflozin propanediol 10 mg 10 mg PO DAILY #90 tabs 11/11/20 05/13/23 tablet (Farxiga) lovastatin 20 mg tablet 20 mg PO DAILY #90 tab-caps 01/12/21 05/13/23 nystatin 100,000 unit/gram topical 1 applic topical BID inguinal rash 02/03/21 05/13/23 cream #30 grams furosemide 20 mg tablet 40 mg PO DAILY 06/01/21 05/13/23 tamsulosin 0.4 mg capsule (Flomax) 0.4 mg PO DAILY #10 caps 06/01/21 05/13/23 triamcinolone acetonide 0.1 % 1 applic topical DAILY 06/01/21 05/13/23 topical ointment diltiazem HCl 300 mg capsule,24 300 mg PO DAILY 01/18/22 05/13/23 hr,extended release (Tiadylt ER) insulin glargine 100 unit/mL 10 unit subcut QPM 01/18/22 05/13/23 subcutaneous solution (Lantus U-100 Insulin) semaglutide 7 mg tablet 7 mg PO DAILY 01/18/22 05/13/23 metformin 1,000 mg tablet 1,000 mg PO BID 01/23/22 05/13/23 phenazopyridine 200 mg tablet 200 mg PO TID PRN pain #20 tabs 02/26/22 05/13/23 (Pyridium) apixaban 5 mg tablet (Eliquis) 5 mg PO BID #180 tabs 07/20/22 05/13/23 levothyroxine 50 mcg tablet 50 mcg PO DAILY 12/03/22 05/13/23 acetaminophen 325 mg capsule 650 mg PO ONCE PRN 12/31/22 05/13/23 atorvastatin 40 mg tablet 40 mg PO DAILY 12/31/22 05/13/23 docusate sodium 100 mg capsule 100 mg PO DAILY 12/31/22 05/13/23 (Colace) insulin lispro 100 unit/mL 1 sliding scale dose subcut 12/31/22 05/13/23 subcutaneous pen (Humalog KwikPen USEASDIRECTD (U-100) Insulin) sennosides 8.6 mg capsule (senna) 8.6 mg PO DAILY 12/31/22 05/13/23 diltiazem HCl 60 mg tablet 60 mg PO BID 04/29/23 05/13/23 metoprolol tartrate 50 mg tablet 50 mg PO BID 04/29/23 05/13/23 cefpodoxime 200 mg tablet 200 mg PO BID #13 tabs 05/07/23 05/13/23 lisinopril 5 mg tablet 10 mg PO DAILY #90 tab-caps 05/07/23 05/13/23 levetiracetam 500 mg tablet 500 mg PO BID #180 tabs 05/13/23 05/13/23 Previous Rx's Medication Instructions Recorded finasteride 5 mg tablet 5 mg PO DAILY #90 tabs 04/27/20 dapagliflozin propanediol 10 mg 10 mg PO DAILY #90 tabs 11/11/20 tablet (Farxiga) lovastatin 20 mg tablet 20 mg PO DAILY #90 tab-caps 01/12/21 nystatin 100,000 unit/gram topical 1 applic topical BID inguinal rash 02/03/21 cream #30 grams tamsulosin 0.4 mg capsule (Flomax) 0.4 mg PO DAILY #10 caps 06/01/21 phenazopyridine 200 mg tablet 200 mg PO TID PRN pain #20 tabs 02/26/22 (Pyridium) apixaban 5 mg tablet (Eliquis) 5 mg PO BID #180 tabs 07/20/22 cefpodoxime 200 mg tablet 200 mg PO BID #13 tabs 05/07/23 lisinopril 5 mg tablet 10 mg PO DAILY #90 tab-caps 05/07/23 levetiracetam 500 mg tablet 500 mg PO BID #180 tabs 05/13/23 Allergies Allergy/AdvReac Type Severity Reaction Status Date / Time No Known Allergies Allergy Verified 05/13/23 18:52 General Stated Complaint: SOB TREVOR: 3 Review of Systems Narrative: Review of Systems: Constitutional: No fevers, chills, sweats Eye: No recent visual problems ENT: No ear pain, nasal congestion, sore throat Respiratory: No cough Cardiovascular: No Chest pain, palpitations, syncope Gastrointestinal: No nausea, vomiting, diarrhea Genitourinary: No hematuria Berhane/Lymph: Negative for bruising tendency, swollen lymph glands Endocrine: Negative for excessive thirst, excessive hunger Musculoskeletal: No back pain, neck pain, joint pain, muscle pain, decreased range of motion Integumentary: No rash, pruritus, abrasions Neurologic: Alert & oriented X 4 Psychiatric: No anxiety, depression As per the son who communicates with his father [facility] All Active Problems (Updated 05/13/23 @ 21:31 by Jaxon Horowitz MD) Congestive heart failure (CHF) (Chronic) Atrial fibrillation (Chronic) Diastolic dysfunction (Acute) Partial epilepsy (Acute) 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 denies this Atopic conjunctivitis (10/22/13) Atrial fibrillation Benign prostatic hyperplasia (02/25/13) Bladder cancer Carpal tunnel syndrome Chronic anticoagulation Chronic venous stasis Creatinine elevation Dementia Depressive disorder (02/25/13) Diabetes mellitus (02/25/13) Diabetic leg ulcer Elevated WBCs Essential hypertension (06/24/13) Frequency of micturition (01/03/16) Glaucoma (10/22/13) B/L Gross hematuria History of depression Hyperglycemia Hyperlipidemia (02/25/13) Hypermetropia (10/22/13) Hypertension Hypogonadism Idiopathic peripheral neuropathy Iron deficiency Low back pain (08/10/08) Noncompliance Nuclear senile cataract (10/22/13) Obesity (08/10/08) Aviva-en-y 02/2014 Obstructive uropathy Olecranon bursitis CARLOS A on CPAP Osteoarthritis (08/10/08) BILATERAL KNEE replacements Peptic reflux disease (08/10/08) Peripheral neuralgia Peripheral neuropathy Phimosis Presbyopia (10/22/13) Pterygium (08/10/08) LEFT EYE Regular astigmatism (10/22/13) Sensorineural hearing loss, bilateral (09/05/17) Tubular adenoma Tubular and tubulovillous adenoma 2011 --suggested repeat 2017 Type 2 diabetes mellitus Ulcer of hermosillo limited to breakdown of skin Umbilical hernia (08/18/12) Ureterolithiasis Urgency of urination (01/03/16) Urinary tract infection UTI (urinary tract infection) Varicose veins of lower extremity (08/10/08) Venous insufficiency Venous insufficiency (chronic) (peripheral) Surgical History History of transurethral destruction of bladder lesion Hx of total knee arthroplasty Pt reports he has had a left and right knee repacement. Pt doesnt remember when and thinks he had it done at [facility] [place] Fundoplication Repair of umbilical hernia Laparoscopic Aviva-en-y surgery for weight loss S/P cholecystectomy (~01/04/21) acute hemorrhagic cholecystitis and xanthogranulomatous inflammation S/P colonoscopy [facility]-2011- tubular and tubulovillous polyps [place]- 2019- sessile serrated with low grade dysplacia, tubullovillous with high grade dysplacia and tubular adenomas S/P partial colectomy (~05/09/20) Status post abdominoplasty (05/23/16) Status post cholecystectomy Status post tonsillectomy Status post total knee replacement B/L Vasectomy Family History Mother Cancer Father Heart disease Sister Cancer Sister No problems noted. Brother No problems noted. Brother No problems noted. Brother No problems noted. Son No problems noted. Son No problems noted. Son No problems noted. Social History Smoking/Tobacco Use Status: Never Second Hand Exposure: Yes Smoking risk assessment performed?: Yes Alcohol Intake: never Drug use: Never Substance use type: does not use Caregiver/Support person: No Household members: other Details: son Housing: house Communication Needs: None Education Level: high school Do you need help understanding health information?: Never Pets and animals: No Do you think of yourself as: straight/heterosexual Current gender identity: male What is your relationship status?: How often do you talk on the phone with friends or family?: once per week How often do you get together with friends or relatives?: decline to answer How often do you attend rastafarian or mu-ism services?: decline to answer Do you belong to any clubs or organized social groups?: no Panel score (0-1 are the most socially isolated patients): 0 What type of physical activity do you participate in: walking Duration: 15-30 minutes/day Frequency: 1-2 times per week Velia/Latter Day: Holiness Special velia needs: No Seatbelt use: always Helmet use: No Drive intox or ride w/intox jinriksha driver: No Do you feel safe at home: Yes Do you feel safe in your relationship?: Yes Exam Narrative Exam Narrative: Exam; vitals signs as reported above normal Constitutional; In no acute distress, afebrile General: cooperative, healthy appearing, comfortable and no acute distress HEENT: Head: normal to inspection, no palpable skull fracture and normocephalic atraumatic Eyes: l: appearance normal, both eyes and all related structures Pupils: PERRL : EOM intact bilaterally Direct ophthalmoscopy: normal light reflex, normal conjunctiva, normal visual acuity Neck no JVD, supple non tender Neck: normal visual inspection, full ROM and no lymphadenopathy Chest: normal inspection of the chest Respiratory : normal respiratory effort and able to speak in complete sentences no wheezing no rales Cardio Rate: regular rate Rhythm: regular rhythm normal heart sounds S1 and S2 no murmurs, gallops, or rubs GI : normal to inspection, normal bowel sounds, soft, non tender, non distended, no organomegaly Back/Spine/ no CVA tenderness Thoracic/Lumbar Spine: no tenderness or deformities Skin no rashes or lesions Neuro: patient alert but aphasic expressive but understands everything said to and no meningeal signs, Cranial Nerves: CN's II-XI intact bilaterally, Cognition: normal cognition, Speech: speech normal, Gait: normal gait, Depp te ndon reflexes normal 2+ Extremities, no edema, full range of motion, normal strength Course Vital Signs Vital signs: Vital Signs Pulse 81 05/13/23 18:47 Respiratory Rate 20 05/13/23 18:47 Blood Pressure 121/81 05/13/23 18:47 Pulse Oximetry 96 05/13/23 18:47 Pulse 81 05/13/23 18:47 Respiratory Rate 20 05/13/23 18:47 Blood Pressure 121/81 05/13/23 18:47 Blood Pressure Position Sitting 05/13/23 18:47 Pulse Oximetry 96 05/13/23 18:47 Oxygen Delivery Method Room Air 05/13/23 18:47 Oxygen Flow Rate 0 05/13/23 18:47 POCUS Exam (ED) Limited Cardiac Exam DATE OF EXAM: 05/13/23 TIME OF EXAM: 21:21 PROVIDER THAT PERFORMED THE STUDY: Jaxon Horowitz REASON FOR EXAM: Dyspnea VISUALIZED STRUCTURES: Four Chambers, Left atrium, Left ventricle, LVOT, Right atrium, Right ventricle, Aortic valve, Mitral valve, Interventricular septum and IVC VIEW OBTAINED: Apical 4-Chamber, Parasternal long-axis, Parasternal short-axis and Subxiphoid PERTINENT FINDINGS/IMPRESSION: LV dysfunction and Plethoric IVC DIFFERENTIAL DIAGNOSES: Mild CHF with diastolic dysfunction and normal preserved systolic function Exam complete Limited Thoracic Lung Exam DATE OF EXAM: 05/13/23 TIME OF EXAM: 21:22 PROVIDER THAT PERFORMED THE STUDY: Jaxon Horowitz REASON FOR EXAM: Shortness ofBreath VISUALIZED STRUCTURES: left lateral and right posterior PERTINENT FINDINGS/IMPRESSION: B-lines/left side (in the lung bases) and B- lines/right side (in the ling base) DIFFERENTIAL DIAGNOSES: mild interstitial syndrome Exam complete
--- NOTE | 2023-05-13 19:00 | RT.EKG_ITS ---
APPROVED REPORT Exam: Resting ECG Reason for Exam: dyspnea, palpitations Patient Location: E HR:78 bpm ECG Measurements Heart Rate 78 AXIS NH [id number] P [id number] QRSd 76 QRS 48 QT 422 T 29 QTc 481 Conclusion Atrial fibrillation...V-rate 67- 79, irreg A-activity Anteroseptal infarct, age indeterminate...Q >35mS, T neg, V1-V2
--- NOTE | 2023-05-13 19:00 | DI.RAD_ITS ---
Exam(s) XR PORTABLE CHEST AP EXAM: XR PORTABLE CHEST AP CLINICAL HISTORY: Dyspnea TECHNIQUE: 2D digital imaging was performed. COMPARISON: CR XR CHEST 2V PA LATERAL from 05/02/2023 FINDINGS: Leads are coiled over the chest. LUNGS: Clear. No pleural abnormality seen. HEART: Enlarged, unchanged AORTA: Tortuous. BONES: Unremarkable for age. Soft tissues: Unremarkable. IMPRESSION: No acute findings. DATA REPOSITORY: RADIATION DOSE DELIVERED:
--- NOTE | 2023-05-13 19:34 | DI.VRAD_ITS ---
PROCEDURE INFORMATION: Exam: XR Chest Exam date and time: 05/13/2023 7:24 PM Age: 72 years old Clinical indication: Dyspnea TECHNIQUE: Imaging protocol: Radiologic exam of the chest. Views: 1 view. COMPARISON: CR XR CHEST 2V PA LATERAL 05/02/2023 4:13 PM FINDINGS: Lungs: No consolidation. Pleural spaces: No pleural effusion. No pneumothorax. Heart/Mediastinum: Moderate cardiomegaly. Tortuous aorta Bones/joints: Degenerative changes in the shoulders. IMPRESSION: No acute findings. Dictated and Authenticated by: Marco A Schwarz MD. Ordering:JODY Coates MD
[2023-05-13 19:39] LABS: Abs Immature Grans 0.03 10^3/uL (0.0-0.06); Absolute Basophil Count 0.04 10^3/uL (0.0-0.2); Absolute Eosinophil Count 0.17 10^3/uL (0.0-0.7); Absolute Lymphocyte Count 1.59 10^3/uL (1.2-3.4); Absolute Monocyte Count 0.65 10^3/uL (0.1-0.8); Absolute Neutrophil Count 4.85 10^3/uL (1.2-6.7); Basophils % 0.5; Eosinophils % 2.3; HCT 35.2 % (40.0-50.0); HGB 11.5 g/dL (13.5-17.5); Immature Grans % 0.4; Lymphocytes % 21.7; MCH 28.6 pg (27.0-33.0); MCHC 32.7 % (32.0-36.0); MCV 88 fL (80-95); MPV 9.1 fL (8.0-11.0); Monocytes % 8.9; Neutrophils % 66.2; Platelet Count 278 10^3/uL (130-400); RBC 4.02 10^6/uL (4.36-5.78); RDW 14.6 % (11.8-14.1); RDW-SD 45.9 fL; WBC 7.33 10^3/uL (4.4-10.8)
[2023-05-13 19:56] LABS: Bilirubin Negative (Negative); Blood Trace-intact (Negative); Clarity Clear (Clear); Glucose Negative (Negative); Ketones Negative (Negative); Leukocyte Esterase Negative (Negative); Nitrite Negative (Negative); Urobilinogen 0.2 mg/dL (Up to 0.2); pH 5.5 (5-8)
[2023-05-13 20:05] LABS: ALT 46 U/L (16-63); AST 22 U/L (15-37); Albumin 3.4 g/dL (3.4-5.0); Alkaline Phosphatase 92 U/L (46-116); BUN 42 mg/dL (7-18); Bilirubin, Total 0.5 mg/dL (0.2-1.0); CREATININE 1.6 mg/dL (0.70-1.30); Calcium 9.1 mg/dL (8.5-10.1); Chloride 105 mmol/L (98-107); Estimated GFR 45.21 (mL/min/1.73m2); Glucose 170 mg/dL (74-106); Magnesium 1.8 mg/dL (1.8-2.4); NT-proBNP 2142 pg/mL (<300); Potassium 5.2 mmol/L (3.5-5.1); Sodium 139 mmol/L (136-145); Troponin I < 50 ng/L (<or=60)
[2023-05-13 20:09] LABS: Bacteria Rare HPF (Negative); C & S Indicated? No; Casts 0-2 Hyaline LPF (Negative); Crystals Few Uric Acid HPF (Negative); Epithelial Cells Rare HPF (Negative); Mucus Negative (Negative); Other Cells Rare Transitional (Negative); RBC 0-2 HPF (0-2); WBC 0-2 HPF (0-5)
[2023-05-13 20:11] LABS: D-Dimer 918 ng/mlFEU (<500)
[2023-05-13] MEDS: Furosemide 40 MG/4 ML VIAL IVP (20:55)
== END 2023-05-13 21:48 | disposition home or self-care (01) ==
PROVIDERS: Emergency Provider Emergency Medicine Emergency Medical Services; PCP Family Medicine
DX: I50.9 Heart failure, unspecified (principal); I48.91 Unspecified atrial fibrillation; I51.89 Other ill-defined heart diseases; R06.02 Shortness of breath
CPT/HCPCS: 36415; 76604; 80053; 93005; 93308; 96374; 99285; 71045; 81003; 81015; 83735; 83880; 84484; 85025; 85379; 93010; 99284; J1940

== ENCOUNTER 2023-06-20 12:22 | Emergency (ER) | payer MEDICARE, SELFPAY ==
[2023-06-20] VITALS (12 sets, daily range): BP systolic 136–152; BP diastolic 72–98; PULSE 64–87; RESP 17–25; TEMP 36.7; O2SAT 98–100
--- NOTE | 2023-06-20 12:30 | DI.CT_ITS ---
Exam(s) CT HEAD WO EXAM: CT HEAD WO CLINICAL HISTORY: Seizure like activity this am.. TECHNIQUE: Imaging Protocol: Axial computed tomography images with coronal and sagittal reformatted images were created and reviewed COMPARISON: CT CT HEAD WO from 05/02/2023 FINDINGS: Ventricles and Extra axial spaces: Normal in size and morphology for the patient's age. Hemorrhage: None. Cerebral parenchyma: Old left frontal infarct. No evidence of acute infarct or mass. Midline shift: None. Brainstem/Cerebellum: Normal. Calvarium: Normal. Visualized Paranasal sinuses/Mastoids: Mucous retention cyst left maxillary sinus. Soft Tissues: Unremarkable. IMPRESSION: Large old left frontal infarct. No acute intracranial process. RADIATION DOSE DELIVERED: 758.79mGy.cm Total DLP DATA REPOSITORY: All CT scans at this facility are submitted to the National Radiology Data Registry (NRDR) Dose Index Registry (DIR) with the [employer] (ACR). RADIATION OPTIMIZATION: All CT scans at this facility use at least one of these dose optimization te chniques: automated exposure control; mA and/or kV adjustment per patient size (includes targeted exa ms where dose is matched to clinical indication); or iterative reconstruction.
--- NOTE | 2023-06-20 12:38 | ED.GENADUL_ITS ---
Discharge Plan Disposition Patient Disposition: Home Condition: Stable Discharge Details Clinical Impression: Seizure, UTI (urinary tract infection) Primary Care Provider: David Massey ED Provider: Vanessa Hebert Meds and New Rx's Prescriptions: New cephalexin 500 mg capsule 500 mg PO BID 7 Days Qty: 14 0RF Rx Instructions: Take one capsule by mouth twice daily x 7 days. No Action finasteride 5 mg tablet 5 mg PO DAILY Qty: 90 3RF phenazopyridine [Pyridium] 200 mg tablet 200 mg PO TID PRN (Reason: pain) Qty: 20 0RF Patient Comments: Medication not on med list from PCP 12/03/22 CT Eliquis 5 mg tablet 5 mg PO BID Qty: 180 3RF nystatin 100,000 unit/gram cream 1 applic topical BID Qty: 30 2RF Patient Comments: Medication not on med list from PCP 12/03/22 CT metformin 1,000 mg tablet 1,000 mg PO BID levetiracetam 500 mg tablet 500 mg PO BID Qty: 180 3RF multivitamin [Daily Vitamin] 1 EACH tablet 2 ea PO DAILY Patient Comments: Medication not on med list from PCP 12/03/22 CT cyanocobalamin (vitamin B-12) [Vitamin B-12] 500 MCG tablet 500 mcg PO DAILY Patient Comments: T REPORTS HE NO LONGER TAKES calcium carbonate-vitamin D3 [Calcium 600 + D(3)] 1 EACH tablet 2 ea PO DAILY Patient Comments: PT REPORTS HE NO LONGER TAKES iron 159 mg (45 mg iron) tablet extended release 159 mg PO DAILY Patient Comments: 07/28/19 65 mg daily. si Rx Instructions: NOT SURE OF DOSE Farxiga 10 mg tablet 10 mg PO DAILY Qty: 90 3RF Patient Comments: PT REPORTS HE NO LONGER TAKES lovastatin 20 mg tablet 20 mg PO DAILY Qty: 90 3RF diltiazem HCl [Tiadylt ER] 300 mg capsule,extended release 24 hr 300 mg PO DAILY semaglutide 7 mg tablet 7 mg PO DAILY Patient Comments: Medication not on med list from PCP 12/03/22 CT insulin glargine [Lantus U-100 Insulin] 100 unit/mL solution 10 unit subcut QPM acetaminophen 325 mg capsule 650 mg PO ONCE PRN atorvastatin 40 mg tablet 40 mg PO DAILY docusate sodium [Colace] 100 mg capsule 100 mg PO DAILY insulin lispro [Humalog KwikPen Insulin] 100 unit/mL insulin pen 1 sliding scale dose subcut USEASDIRECTD senna 8.6 mg capsule 8.6 mg PO DAILY metoprolol tartrate 50 mg tablet 50 mg PO BID diltiazem HCl 60 mg tablet 60 mg PO BID triamcinolone acetonide 0.1 % ointment 1 applic TOPICAL DAILY Patient Comments: APPLY TOPICALLY DIRECTED TO THE SKIN OF THE LOWER LEGS EVERY NIGHT. Pt reports not using this cREAM. furosemide 20 mg tablet 40 mg PO DAILY Patient Comments: Take 1 tablet by mouth every morning Dr. Cuellar- Cardiology tamsulosin [Flomax] 0.4 mg capsule 0.4 mg PO DAILY Qty: 10 0RF Patient Comments: PT REPORTS HE DOESNT USE THIS MED. Vitamin C 1,000 MG tablet extended release 1,000 mg PO DAILY Patient Comments: PT REPORTS HE NO LINGER TAKES omega-3 fatty acids [Fish Oil Concentrate] 1,000 mg Capsule 2,400 mg PO DAILY Patient Comments: Medication not on med list from PCP 12/03/22 CT levothyroxine 50 mcg tablet 50 mcg PO DAILY Patient Comments: Take 1 tablet by mouth once a day Take on an empty stomach 30 minutes before breakfast or other medications lisinopril 5 mg tablet 10 mg PO DAILY Qty: 90 3RF cefpodoxime 200 mg tablet 200 mg PO BID Qty: 13 0RF Rx Instructions: must administer with a meal/food Discharge Instructions Instructions: Urinary Tract Infection in Men (ED), Recurrent Seizures in Adults (ED) Additional Instructions: No evidence of acute abnormality on the head CT. I do feel that this is a breakthrough seizure. You were given an extra dose of your Keppra IV today. Your magnesium was also little bit low. Consider taking a multivitamin with magnesium in it for the next few days. Continue to take your Keppra as previously prescribed. It also appears that you may have an early urinary tract infection. Please take the antibiotic twice daily with yogurt or probiotic as prescribed. Follow up with neurologist/primary care provider in 3-5 days. Return to ED sooner if any worsening or concerns. Increase oral fluids. 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 He reports around 10 AM while they were driving he had an upper body seizure involving his upper extremities and facial twitching he reports it lasted about a minute any came back to baseline mentally right away. It another 1 also happened after eating. He did not fall onto the ground or hit his head no recent falls or trauma per the son's report. Patient has no complaints of pain or blurry vision no headache. He does have an indwelling Thornton catheter which was changed out on the . Denies any fever chills nausea vomiting or diarrhea or any other as sociated symptoms. Patient is ambulatory upon arrival with a walker. Work-up ordered including CBC CMP, Keppra level, urinalysis, head CT. On re-evaluation patient has no complaints, he states I want to go home. Keppra 500mg IVPB ordered, informed patient we will change out his thornton and plan to DC him after results. Labs show no leukocytosis hemoglobin 11.3 hematocrit 35.0 which is at patient's baseline, CMP shows BUN of 28 GFR greater than 60, glucose 177 magnesium 1.5 which was replaced with 400 of magnesium p.o. urinalysis shows trace blood small leukocytes culture is pending at this time. Patient given cephalexin for urinary tract infection. No further seizure activity or neurodeficits noted during stay. Given referral for neurology follow-up and PCP follow-up. Patient remained hemodynamically stable throughout the remainder of the stay. Patient was discharged in the care of his son. This text was generated using [employer] dictation system, please disregard any oddities of phrase or misspellings. Medical Records Medical records reviewed: Yes I reviewed the patient's medical records. Imaging Data Radiologic Study: Imaging: CT Scan Radiologist's impression: EXAM: CT HEAD WO CLINICAL HISTORY: Seizure like activity this am.. TECHNIQUE: Imaging Protocol: Axial computed tomography images with coronal and sagittal reformatted images were created and reviewed COMPARISON: CT CT HEAD WO from 05/02/2023 FINDINGS: Ventricles and Extra axial spaces: Normal in size and morphology for the patient's age. Hemorrhage: None. Cerebral parenchyma: Old left frontal infarct. No evidence of acute infarct or mass. Midline shift: None. Brainstem/Cerebellum: Normal. Calvarium: Normal. Visualized Paranasal sinuses/Mastoids: Mucous retention cyst left maxillary sinus. Soft Tissues: Unremarkable. IMPRESSION: Large old left frontal infarct. No acute intracranial process. Lab Data Lab results reviewed: Yes I reviewed the patient's lab results. Labs: 06/20/23 14:29 Urine - Reflex from Ua Urine Culture - Pending Laboratory Tests Range/Units 06/20/23 06/20/23 06/20/23 12:50 12:50 14:29 WBC (4.4-10.8) 10^3/uL 7.56 RBC (4.36-5.78) 10^6/uL 3.88 L Hgb (13.5-17.5) g/dL 11.3 L Hct (40.0-50.0) % 35.0 L MCV (80-95) fL 90 MCH (27.0-33.0) pg 29.1 MCHC (32.0-36.0) % 32.3 RDW (11.8-14.1) % 15.5 H Plt Count (130-400) 10^3/uL 237 MPV (8.0-11.0) fL 9.1 Immature Gran % 0.4 Neutrophils % 73.8 Lymphocytes % 13.8 Monocytes % 9.1 Eosinophils % 2.5 Basophils % 0.4 Nucleated RBC % (0.0-0.3) % 0.0 Absolute Neutrophils (1.2-6.7) 10^3/uL 5.58 Absolute Lymphocytes (1.2-3.4) 10^3/uL 1.04 L Absolute Monocytes (0.1-0.8) 10^3/uL 0.69 Absolute Eosinophils (0.0-0.7) 10^3/uL 0.19 Absolute Basophils (0.0-0.2) 10^3/uL 0.03 Sodium (136-145) mmol/L 139 Potassium (3.5-5.1) mmol/L 3.7 Chloride (98-107) mmol/L 104 Carbon Dioxide (21.0-32.0) mmol/L 22.9 Anion Gap (3-11) mmol/L 12.1 H BUN (7-18) mg/dL 28 H Creatinine (0.70-1.30) mg/dL 1.3 Est GFR (CKD-EPI 2020) (mL/min/1.73m2) 58.01 Glucose (74-106) mg/dL 177 H Calcium (8.5-10.1) mg/dL 8.7 Magnesium (1.8-2.4) mg/dL 1.5 L Total Bilirubin (0.2-1.0) mg/dL 0.4 AST (15-37) U/L 16 ALT (16-63) U/L 22 Alkaline Phosphatase (46-116) U/L 85 Total Protein (6.4-8.2) g/dL 7.2 Albumin (3.4-5.0) g/dL 3.6 TSH (0.36-3.74) uIU/mL 1.05 Urine Color (Yellow) Yellow Urine Clarity (Clear) Clear Urine pH (5-8) 5.0 Ur Specific [place] (1.005-1.025) 1.010 Urine Protein (Negative) mg/dL Negative Urine Ketones (Negative) mg/dL Negative Urine Blood (Negative) Trace-intact H Urine Nitrite (Negative) Negative Urine Bilirubin (Negative) Negative Urine Urobilinogen (Up to 0.2) mg/dL 0.2 Ur Leukocyte Esterase (Negative) Small H Urine RBC (0-2) HPF 0-2 Urine WBC (0-5) HPF 3-5 Ur Epithelial Cells (Negative) HPF Rare Urine Crystals (Negative) HPF Negative Urine Bacteria (Negative) HPF Rare Urine Casts (Negative) LPF Negative Urine Mucus (Negative) Negative Urine Other (Negative) Few Transitional Ur Culture Indicated? Yes Urine Glucose (Negative) mg/dL Negative Ethyl Alcohol (<10) mg/dL < 3.0 HPI General Mode of arrival: ambulatory (Walker) . Date/Time Provider Initiated Documentation: 06/20/23 12:24 . Limitations to Documentation: no limitations . Information obtained by: patient, family (Son), RN notes reviewed and old records reviewed . 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 He reports around 10 AM while they were driving he had an upper body seizure involving his upper extremities and facial twitching he reports it lasted about a minute any came back to baseline mentally right away. It another 1 also happened after eating. He did not fall onto the ground or hit his head no recent falls or trauma per the son's report. Patient has no complaints of pain or blurry vision no headache. He does have an indwelling Thornton catheter which was changed out on the . Denies any fever chills nausea vomiting or diarrhea or any other associated symptoms. Patient is ambulatory upon arrival with a walker. Related Data Home Medications Medication Instructions Recorded Confirmed calcium carbonate 600 mg-vitamin 2 ea PO DAILY 03/29/14 05/14/23 D3 10 mcg (400 unit) tablet (Calcium 600 + D(3)) cyanocobalamin (vitamin B-12) 500 500 mcg PO DAILY 03/29/14 05/14/23 mcg tablet (Vitamin B-12) multivitamin (Daily Vitamin tablet) 2 ea PO DAILY 03/29/14 05/14/23 ascorbic acid (vitamin C) 1,000 mg 1,000 mg PO DAILY 01/03/18 05/14/23 tablet,extended release (Vitamin C ER) omega-3 fatty acids 1,000 mg 2,400 mg PO DAILY 10/20/18 05/14/23 capsule (Fish Oil Concentrate) ferrous sulfate, dried 159 mg (45 159 mg PO DAILY 07/28/19 05/14/23 mg iron) tablet,extended release (iron ER) finasteride 5 mg tablet 5 mg PO DAILY #90 tabs 04/27/20 05/14/23 dapagliflozin propanediol 10 mg 10 mg PO DAILY #90 tabs 11/11/20 05/14/23 tablet (Farxiga) lovastatin 20 mg tablet 20 mg PO DAILY #90 tab-caps 01/12/21 05/14/23 nystatin 100,000 unit/gram topical 1 applic topical BID inguinal rash 02/03/21 05/14/23 cream #30 grams furosemide 20 mg tablet 40 mg PO DAILY 06/01/21 05/14/23 tamsulosin 0.4 mg capsule (Flomax) 0.4 mg PO DAILY #10 caps 06/01/21 05/14/23 triamcinolone acetonide 0.1 % 1 applic topical DAILY 06/01/21 05/14/23 topical ointment diltiazem HCl 300 mg capsule,24 300 mg PO DAILY 01/18/22 05/14/23 hr,extended release (Tiadylt ER) insulin glargine 100 unit/mL 10 unit subcut QPM 01/18/22 05/14/23 subcutaneous solution (Lantus U-100 Insulin) semaglutide 7 mg tablet 7 mg PO DAILY 01/18/22 05/14/23 metformin 1,000 mg tablet 1,000 mg PO BID 01/23/22 05/14/23 phenazopyridine 200 mg tablet 200 mg PO TID PRN pain #20 tabs 02/26/22 05/14/23 (Pyridium) apixaban 5 mg tablet (Eliquis) 5 mg PO BID #180 tabs 07/20/22 05/14/23 levothyroxine 50 mcg tablet 50 mcg PO DAILY 12/03/22 05/14/23 acetaminophen 325 mg capsule 650 mg PO ONCE PRN 12/31/22 05/14/23 atorvastatin 40 mg tablet 40 mg PO DAILY 12/31/22 05/14/23 docusate sodium 100 mg capsule 100 mg PO DAILY 12/31/22 05/14/23 (Colace) insulin lispro 100 unit/mL 1 sliding scale dose subcut 12/31/22 05/14/23 subcutaneous pen (Humalog KwikPen USEASDIRECTD (U-100) Insulin) sennosides 8.6 mg capsule (senna) 8.6 mg PO DAILY 12/31/22 05/14/23 diltiazem HCl 60 mg tablet 60 mg PO BID 04/29/23 05/14/23 metoprolol tartrate 50 mg tablet 50 mg PO BID 04/29/23 05/14/23 cefpodoxime 200 mg tablet 200 mg PO BID #13 tabs 05/07/23 05/14/23 lisinopril 5 mg tablet 10 mg PO DAILY #90 tab-caps 05/07/23 05/14/23 levetiracetam 500 mg tablet 500 mg PO BID #180 tabs 05/13/23 05/13/23 cephalexin 500 mg capsule 500 mg PO BID UTI 7 days #14 caps 06/20/23 Previous Rx's Medication Instructions Recorded finasteride 5 mg tablet 5 mg PO DAILY #90 tabs 04/27/20 dapagliflozin propanediol 10 mg 10 mg PO DAILY #90 tabs 11/11/20 tablet (Farxiga) lovastatin 20 mg tablet 20 mg PO DAILY #90 tab-caps 01/12/21 nystatin 100,000 unit/gram topical 1 applic topical BID inguinal rash 02/03/21 cream #30 grams tamsulosin 0.4 mg capsule (Flomax) 0.4 mg PO DAILY #10 caps 06/01/21 phenazopyridine 200 mg tablet 200 mg PO TID PRN pain #20 tabs 02/26/22 (Pyridium) apixaban 5 mg tablet (Eliquis) 5 mg PO BID #180 tabs 07/20/22 cefpodoxime 200 mg tablet 200 mg PO BID #13 tabs 05/07/23 lisinopril 5 mg tablet 10 mg PO DAILY #90 tab-caps 05/07/23 levetiracetam 500 mg tablet 500 mg PO BID #180 tabs 05/13/23 cephalexin 500 mg capsule 500 mg PO BID UTI 7 days #14 caps 06/20/23 Allergies Allergy/AdvReac Type Severity Reaction Status Date / Time No Known Allergies Allergy Verified 06/20/23 12:29 General Stated Complaint: Seizure TREVOR: 3 Review of Systems All systems reviewed & are unremarkable except as noted in HPI and below Neurologic Neurologic: Reports as per HPI and Reports convulsions (x2 [employer]) PFSH All Active Problems (Updated 06/20/23 @ 14:55 by Vanessa Hebert NP) UTI (urinary tract infection) (Acute) Urinary retention (Acute) Partial epilepsy (Acute) 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 denies this Atopic conjunctivitis (10/22/13) Atrial fibrillation Benign prostatic hyperplasia (02/25/13) Bladder cancer Carpal tunnel syndrome Chronic anticoagulation Chronic venous stasis Creatinine elevation Dementia Depressive disorder (02/25/13) Diabetes mellitus (02/25/13) Diabetic leg ulcer Elevated WBCs Essential hypertension (06/24/13) Frequency of micturition (01/03/16) Glaucoma (10/22/13) B/L Gross hematuria History of depression Hyperglycemia Hyperlipidemia (02/25/13) Hypermetropia (10/22/13) Hypertension Hypogonadism Idiopathic peripheral neuropathy Iron deficiency Low back pain (08/10/08) Noncompliance Nuclear senile cataract (10/22/13) Obesity (08/10/08) Aviva-en-y 02/2014 Obstructive uropathy Olecranon bursitis CARLOS A on CPAP Osteoarthritis (08/10/08) BILATERAL KNEE replacements Peptic reflux disease (08/10/08) Peripheral neuralgia Peripheral neuropathy Phimosis Presbyopia (10/22/13) Pterygium (08/10/08) LEFT EYE Regular astigmatism (10/22/13) Sensorineural hearing loss, bilateral (09/05/17) Tubular adenoma Tubular and tubulovillous adenoma 2011 --suggested repeat 2017 Type 2 diabetes mellitus Ulcer of [place]mosillo limited to breakdown of skin Umbilical hernia (08/18/12) Ureterolithiasis Urgency of urination (01/03/16) Urinary tract infection UTI (urinary tract infection) Varicose veins of lower extremity (08/10/08) Venous insufficiency Venous insufficiency (chronic) (peripheral) Surgical History History of transurethral destruction of bladder lesion Hx of total knee arthroplasty Pt reports he has had a left and right knee repacement. Pt doesnt remember when and thinks he had it done at [facility] Ronnell Fundoplication Repair of umbilical hernia Laparoscopic Aviva-en-y surgery for weight loss S/P cholecystectomy (~01/04/21) acute hemorrhagic cholecystitis and xanthogranulomatous inflammation S/P colonoscopy Haddad-2011- tubular and tubulovillous polyps Santiago- 2019- sessile serrated with low grade dysplacia, tubullovillous with high grade dysplacia and tubular adenomas S/P partial colectomy (~05/09/20) Status post abdominoplasty (05/23/16) Status post cholecystectomy Status post tonsillectomy Status post total knee replacement B/L Vasectomy Family History Mother Cancer Father Heart disease Sister Cancer Sister No problems noted. Brother No problems noted. Brother No problems noted. Brother No problems noted. Son No problems noted. Son No problems noted. Son No problems noted. Social History Smoking/Tobacco Use Status: Never Second Hand Exposure: Yes Smoking risk assessment performed?: Yes Alcohol Intake: never Drug use: Never Substance use type: does not use Caregiver/Support person: No Household members: other Details: son Housing: house Communication Needs: None Education Level: high school Do you need help understanding health information?: Never Pets and animals: No Do you think of yourself as: straight/heterosexual Current gender identity: male What is your relationship status?: How often do you talk on the phone with friends or family?: once per week How often do you get together with friends or relatives?: decline to answer How often do you attend faith or anglican services?: decline to answer Do you belong to any clubs or organized social groups?: no Panel score (0-1 are the most socially isolated patients): 0 What type of physical activity do you participate in: walking Duration: 15-30 minutes/day Frequency: 1-2 times per week Velia/Synagogue: Buddhist Special velia needs: No Seatbelt use: always Helmet use: No Drive intox or ride w/intox locomotive driver: No Do you feel safe at home: Yes Do you feel safe in your relationship?: Yes Exam Narrative Exam Narrative: Constitutional: Alert and oriented x3. Appears stated age. Normal body habitus. Head: Normocephalic, no trauma. Eyes: Pupils PERRL, Red reflex noted, EOM's intact. Eyelids symmetrical without lesions, discharge, or swelling. ENT: Bilateral TM's WNL, External ear normal to inspection, no mastoid TTP, swelling, or erythema, Nasal turbinates WNL, no nasal discharge. Normal dentition, Posterior pharynx WNL, no exudate. Chest: RRR, Normal S1, S2, distal pulses intact. Resp: Lungs clear to auscultation bilaterally, no wheezes, rales, or rhonchi. Abdomen: Soft, non-distended, Normoactive bowel sounds all 4 quads. Musculoskeletal: Normal gait, 5/5 strength to all four extremities. Skin: No suspicious rashes or lesions. Capillary refill less than 2 sec. Neurologic: Cranial nerves II-XII intact. Alert and oriented x 3. Motor: No deficits noted. Sensory: Intact bilaterally all 4 extremities. Reflexes: DTR's intact bilaterally.. Hematologic/Lymphatic: No ecchymosis, no lymphadenopathy. Course Vital Signs Vital signs: Vital Signs Temperature 36.7 C 06/20/23 12:25 Pulse 87 06/20/23 12:25 Respiratory Rate 18 06/20/23 12:25 Blood Pressure 147/96 H 06/20/23 12:25 Pulse Oximetry 99 06/20/23 12:25 Temperature 36.7 C 06/20/23 12:25 Temperature Source Skin 06/20/23 12:25 Pulse 87 06/20/23 12:25 Respiratory Rate 18 06/20/23 12:25 Respiratory Effort Normal 06/20/23 12:29 Blood Pressure 147/96 H 06/20/23 12:25 Blood Pressure Position Sitting 06/20/23 12:25 Pulse Oximetry 99 06/20/23 12:25 Oxygen Delivery Method Room Air 06/20/23 12:25 Oxygen Flow Rate 0 06/20/23 12:25 Pain Level 0 06/20/23 12:25
[2023-06-20 13:01] LABS: Abs Immature Grans 0.03 10^3/uL (0.0-0.06); Absolute Basophil Count 0.03 10^3/uL (0.0-0.2); Absolute Eosinophil Count 0.19 10^3/uL (0.0-0.7); Absolute Lymphocyte Count 1.04 10^3/uL (1.2-3.4); Absolute Monocyte Count 0.69 10^3/uL (0.1-0.8); Absolute Neutrophil Count 5.58 10^3/uL (1.2-6.7); Basophils % 0.4; Eosinophils % 2.5; HGB 11.3 g/dL (13.5-17.5); Immature Grans % 0.4; Lymphocytes % 13.8; MCH 29.1 pg (27.0-33.0); MCHC 32.3 % (32.0-36.0); MCV 90 fL (80-95); MPV 9.1 fL (8.0-11.0); Monocytes % 9.1; Neutrophils % 73.8; Platelet Count 237 10^3/uL (130-400); RBC 3.88 10^6/uL (4.36-5.78); RDW 15.5 % (11.8-14.1); RDW-SD 51.1 fL; WBC 7.56 10^3/uL (4.4-10.8)
[2023-06-20 13:35] LABS: ALT 22 U/L (16-63); AST 16 U/L (15-37); Albumin 3.6 g/dL (3.4-5.0); Alkaline Phosphatase 85 U/L (46-116); Anion Gap 12.1 mmol/L (3-11); BUN 28 mg/dL (7-18); Bilirubin, Total 0.4 mg/dL (0.2-1.0); CO2 22.9 mmol/L (21.0-32.0); CREATININE 1.3 mg/dL (0.70-1.30); Calcium 8.7 mg/dL (8.5-10.1); Chloride 104 mmol/L (98-107); Estimated GFR 58.01 (mL/min/1.73m2); Glucose 177 mg/dL (74-106); Magnesium 1.5 mg/dL (1.8-2.4); Potassium 3.7 mmol/L (3.5-5.1); Sodium 139 mmol/L (136-145); TSH (W/Ref FT4) 1.05 uIU/mL (0.36-3.74); Total Protein 7.2 g/dL (6.4-8.2)
[2023-06-20 13:36] LABS: ETHANOL BLOOD < 3.0 mg/dL (<10)
[2023-06-20] MEDS: levETIRAcetam 500 MG in Normal Saline 100 ML 400 MG IVPB (14:13)
[2023-06-20] MEDS: Magnesium Oxide 400 MG TAB PO (14:13)
[2023-06-20 14:38] LABS: Bilirubin Negative (Negative); Blood Trace-intact (Negative); Clarity Clear (Clear); Glucose Negative (Negative); Ketones Negative (Negative); Leukocyte Esterase Small (Negative); Nitrite Negative (Negative); Urobilinogen 0.2 mg/dL (Up to 0.2)
[2023-06-20 14:49] LABS: Bacteria Rare HPF (Negative); C & S Indicated? Yes; Casts Negative LPF (Negative); Crystals Negative HPF (Negative); Epithelial Cells Rare HPF (Negative); Mucus Negative (Negative); Other Cells Few Transitional (Negative); RBC 0-2 HPF (0-2)
[2023-06-20] MEDS: Cephalexin 500 MG CAP PO (15:10)
[2023-06-22 12:49] LABS: Levetiracetam <2.0 mcg/mL
== END 2023-06-20 15:19 | disposition home or self-care (01) ==
PROVIDERS: Emergency Provider Registered Nurse Emergency; PCP Family Medicine
DX: N39.0 Urinary tract infection, site not specified; G40.909 Epilepsy, unspecified, not intractable, without status epilepticus; Z79.899 Other long term (current) drug therapy; E11.9 Type 2 diabetes mellitus without complications; R33.9 Retention of urine, unspecified; Z86.73 Personal history of transient ischemic attack (TIA), and cerebral infarction without residual deficits; Z79.4 Long term (current) use of insulin
CPT/HCPCS: 36415; 51702; 80053; 87077; 96365; 99285; 70450; 80177; 80320; 81003; 81015; 83735; 84443; 85025; 87086; 87186; 99284; J1953

== ENCOUNTER → 2023-06-25 10:43 | Outpatient (BNVA) | payer MEDICARE, SELFPAY | PROVIDERS: PCP Family Medicine; Referring Provider Family Medicine; Visit Provider Psychiatry & Neurology Neurology ==

== ENCOUNTER → 2023-07-01 14:11 | Outpatient (BNVA) | payer MEDICARE, SELFPAY | PROVIDERS: PCP Family Medicine; Referring Provider Family Medicine; Visit Provider Psychiatry & Neurology Neurology | DX: I69.320 Aphasia following cerebral infarction (principal); Z79.01 Long term (current) use of anticoagulants; G40.109 Localization-related (focal) (partial) symptomatic epilepsy and epileptic syndromes with simple partial seizures, not intractable, without status epilepticus; E11.22 Type 2 diabetes mellitus with diabetic chronic kidney disease; I12.9 Hypertensive chronic kidney disease with stage 1 through stage 4 chronic kidney disease, or unspecified chronic kidney disease; N18.9 Chronic kidney disease, unspecified | CPT/HCPCS: 99214 ==

== ENCOUNTER 2023-07-12 13:11 | Emergency (ER) | payer MEDICARE, SELFPAY ==
[2023-07-12 13:13] VITALS: BP 107/96; PULSE 83; RESP 18; TEMP 36.4; O2SAT 100
--- NOTE | 2023-07-12 13:42 | ED.GENADUL_ITS ---
Discharge Plan Disposition Patient Disposition: Against Medical Advice Discharge Details Clinical Impression: Complication of Romero catheter Primary Care Provider: David Massey ED Provider: Oscar Steve Home Meds and New Rx's Prescriptions: No Action finasteride 5 mg tablet 5 mg PO DAILY Qty: 90 3RF phenazopyridine [Pyridium] 200 mg tablet 200 mg PO TID PRN (Reason: pain) Qty: 20 0RF Patient Comments: Medication not on med list from PCP 12/03/22 CT Eliquis 5 mg tablet 5 mg PO BID Qty: 180 3RF nystatin 100,000 unit/gram cream 1 applic topical BID Qty: 30 2RF Patient Comments: Medication not on med list from PCP 12/03/22 CT metformin 1,000 mg tablet 1,000 mg PO BID levetiracetam 500 mg tablet 500 mg PO BID Qty: 180 3RF multivitamin [Daily Vitamin] 1 EACH tablet 2 ea PO DAILY Patient Comments: Medication not on med list from PCP 12/03/22 CT cyanocobalamin (vitamin B-12) [Vitamin B-12] 500 MCG tablet 500 mcg PO DAILY Patient Comments: T REPORTS HE NO LONGER TAKES calcium carbonate-vitamin D3 [Calcium 600 + D(3)] 1 EACH tablet 2 ea PO DAILY Patient Comments: PT REPORTS HE NO LONGER TAKES iron 159 mg (45 mg iron) tablet extended release 159 mg PO DAILY Patient Comments: 07/28/19 65 mg daily. si Rx Instructions: NOT SURE OF DOSE Farxiga 10 mg tablet 10 mg PO DAILY Qty: 90 3RF Patient Comments: PT REPORTS HE NO LONGER TAKES lovastatin 20 mg tablet 20 mg PO DAILY Qty: 90 3RF diltiazem HCl [Tiadylt ER] 300 mg capsule,extended release 24 hr 300 mg PO DAILY semaglutide 7 mg tablet 7 mg PO DAILY Patient Comments: Medication not on med list from PCP 12/03/22 CT insulin glargine [Lantus U-100 Insulin] 100 unit/mL solution 10 unit subcut QPM acetaminophen 325 mg capsule 650 mg PO ONCE PRN atorvastatin 40 mg tablet 40 mg PO DAILY docusate sodium [Colace] 100 mg capsule 100 mg PO DAILY insulin lispro [Humalog KwikPen Insulin] 100 unit/mL insulin pen 1 sliding scale dose subcut USEASDIRECTD senna 8.6 mg capsule 8.6 mg PO DAILY metoprolol tartrate 50 mg tablet 50 mg PO BID diltiazem HCl 60 mg tablet 60 mg PO BID triamcinolone acetonide 0.1 % ointment 1 applic TOPICAL DAILY Patient Comments: APPLY TOPICALLY DIRECTED TO THE SKIN OF THE LOWER LEGS EVERY NIGHT. Pt reports not using this cREAM. furosemide 20 mg tablet 40 mg PO DAILY Patient Comments: Take 1 tablet by mouth every morning Dr. Cuellar- Cardiology tamsulosin [Flomax] 0.4 mg capsule 0.4 mg PO DAILY Qty: 10 0RF Patient Comments: PT REPORTS HE DOESNT USE THIS MED. Vitamin C 1,000 MG tablet extended release 1,000 mg PO DAILY Patient Comments: PT REPORTS HE NO LINGER TAKES omega-3 fatty acids [Fish Oil Concentrate] 1,000 mg Capsule 2,400 mg PO DAILY Patient Comments: Medication not on med list from PCP 12/03/22 CT levothyroxine 50 mcg tablet 50 mcg PO DAILY Patient Comments: Take 1 tablet by mouth once a day Take on an empty stomach 30 minutes before breakfast or other medications lisinopril 5 mg tablet 10 mg PO DAILY Qty: 90 3RF cefpodoxime 200 mg tablet 200 mg PO BID Qty: 13 0RF Rx Instructions: must administer with a meal/food Discharge Instructions Additional Instructions: You have decided that you did not want any care in the emergency department today and have left AGAINST MEDICAL ADVICE without any further work-up. If you change your mind please return immediately to the emergency department for evaluation otherwise please call and follow-up with the urology office Referrals: [facility] [Provider Group] Medical Decision Making Patient coming into the emergency department for urinary catheter complaints and complication. Triage note states that he has had pain discomfort and some leaking around his catheter. When I went in to see the patient patient was attempting to leave the room. I asked patient how I could help him and he stated that he did not want to be evaluated and wanted to leave. I again reattempted to evaluate patient to address his concerns but he adamantly refused that he did not want any care and that he was just going to leave. Due to this patient signed AMA paperwork but he was informed to return for any change in condition, if he changed his mind, and he was encouraged to follow-up with urology since he stated that is where his catheter was placed due to having urinary retention secondary to a old CVA event. Patient was ambulatory with walker at time of discharge with no acute signs of distress at that time. HPI General Mode of arrival: ambulatory . Date/Time Provider Initiated Documentation: 07/12/23 13:17 . Limitations to Documentation: other (Patient refusing care) . Information obtained by: patient and RN notes reviewed . History of Present I llness 72 year old M presents to the emergency department with the chief complaint of Romero catheter complication, Related Data Home Medications Medication Instructions Recorded Confirmed calcium carbonate 600 mg-vitamin 2 ea PO DAILY 03/29/14 07/01/23 D3 10 mcg (400 unit) tablet (Calcium 600 + D(3)) cyanocobalamin (vitamin B-12) 500 500 mcg PO DAILY 03/29/14 07/01/23 mcg tablet (Vitamin B-12) multivitamin (Daily Vitamin tablet) 2 ea PO DAILY 03/29/14 07/01/23 ascorbic acid (vitamin C) 1,000 mg 1,000 mg PO DAILY 01/03/18 07/01/23 tablet,extended release (Vitamin C ER) omega-3 fatty acids 1,000 mg 2,400 mg PO DAILY 10/20/18 07/01/23 capsule (Fish Oil Concentrate) ferrous sulfate, dried 159 mg (45 159 mg PO DAILY 07/28/19 07/01/23 mg iron) tablet,extended release (iron ER) finasteride 5 mg tablet 5 mg PO DAILY #90 tabs 04/27/20 07/01/23 dapagliflozin propanediol 10 mg 10 mg PO DAILY #90 tabs 11/11/20 07/01/23 tablet (Farxiga) lovastatin 20 mg tablet 20 mg PO DAILY #90 tab-caps 01/12/21 07/01/23 nystatin 100,000 unit/gram topical 1 applic topical BID inguinal rash 02/03/21 07/01/23 cream #30 grams furosemide 20 mg tablet 40 mg PO DAILY 06/01/21 07/01/23 tamsulosin 0.4 mg capsule (Flomax) 0.4 mg PO DAILY #10 caps 06/01/21 07/01/23 triamcinolone acetonide 0.1 % 1 applic topical DAILY 06/01/21 07/01/23 topical ointment diltiazem HCl 300 mg capsule,24 300 mg PO DAILY 01/18/22 07/01/23 hr,extended release (Tiadylt ER) insulin glargine 100 unit/mL 10 unit subcut QPM 01/18/22 07/01/23 subcutaneous solution (Lantus U-100 Insulin) semaglutide 7 mg tablet 7 mg PO DAILY 01/18/22 07/01/23 metformin 1,000 mg tablet 1,000 mg PO BID 01/23/22 07/01/23 phenazopyridine 200 mg tablet 200 mg PO TID PRN pain #20 tabs 02/26/22 07/01/23 (Pyridium) apixaban 5 mg tablet (Eliquis) 5 mg PO BID #180 tabs 07/20/22 07/01/23 levothyroxine 50 mcg tablet 50 mcg PO DAILY 12/03/22 07/01/23 acetaminophen 325 mg capsule 650 mg PO ONCE PRN 12/31/22 07/01/23 atorvastatin 40 mg tablet 40 mg PO DAILY 12/31/22 07/01/23 docusate sodium 100 mg capsule 100 mg PO DAILY 12/31/22 07/01/23 (Colace) insulin lispro 100 unit/mL 1 sliding scale dose subcut 12/31/22 07/01/23 subcutaneous pen (Humalog KwikPen USEASDIRECTD (U-100) Insulin) sennosides 8.6 mg capsule (senna) 8.6 mg PO DAILY 12/31/22 07/01/23 diltiazem HCl 60 mg tablet 60 mg PO BID 04/29/23 07/01/23 metoprolol tartrate 50 mg tablet 50 mg PO BID 04/29/23 07/01/23 cefpodoxime 200 mg tablet 200 mg PO BID #13 tabs 05/07/23 07/01/23 lisinopril 5 mg tablet 10 mg PO DAILY #90 tab-caps 05/07/23 07/01/23 levetiracetam 500 mg tablet 500 mg PO BID #180 tabs 07/01/23 07/01/23 Previous Rx's Medication Instructions Recorded finasteride 5 mg tablet 5 mg PO DAILY #90 tabs 04/27/20 dapagliflozin propanediol 10 mg 10 mg PO DAILY #90 tabs 11/11/20 tablet (Farxiga) lovastatin 20 mg tablet 20 mg PO DAILY #90 tab-caps 01/12/21 nystatin 100,000 unit/gram topical 1 applic topical BID inguinal rash 02/03/21 cream #30 grams tamsulosin 0.4 mg capsule (Flomax) 0.4 mg PO DAILY #10 caps 06/01/21 phenazopyridine 200 mg tablet 200 mg PO TID PRN pain #20 tabs 02/26/22 (Pyridium) apixaban 5 mg tablet (Eliquis) 5 mg PO BID #180 tabs 07/20/22 cefpodoxime 200 mg tablet 200 mg PO BID #13 tabs 05/07/23 lisinopril 5 mg tablet 10 mg PO DAILY #90 tab-caps 05/07/23 levetiracetam 500 mg tablet 500 mg PO BID #180 tabs 07/01/23 Allergies Allergy/AdvReac Type Severity Reaction Status Date / Time No Known Allergies Allergy Verified 07/12/23 13:16 General Stated Complaint: Urinary TREVOR: 3 Review of Systems Narrative: Unable to obtain due to patient refusing care PFSH All Active Problems (Updated 07/12/23 @ 13:45 by Oscar Steve NP) UTI (urinary tract infection) (Acute) Complication of Romero catheter (Acute) Urinary retention (Acute) Partial epilepsy (Acute) 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 denies this Atopic conjunctivitis (10/22/13) Atrial fibrillation Benign prostatic hyperplasia (02/25/13) Bladder cancer Carpal tunnel syndrome Chronic anticoagulation Chronic venous stasis Creatinine elevation Dementia Depressive disorder (02/25/13) Diabetes mellitus (02/25/13) Diabetic leg ulcer Elevated WBCs Essential hypertension (06/24/13) Frequency of micturition (01/03/16) Glaucoma (10/22/13) B/L Gross hematuria History of depression Hyperglycemia Hyperlipidemia (02/25/13) Hypermetropia (10/22/13) Hypertension Hypogonadism Idiopathic peripheral neuropathy Iron deficiency Low back pain (08/10/08) Noncompliance Nuclear senile cataract (10/22/13) Obesity (08/10/08) Aviva-en-y 02/2014 Obstructive uropathy Olecranon bursitis CARLOS A on CPAP Osteoarthritis (08/10/08) BILATERAL KNEE replacements Peptic reflux disease (08/10/08) Peripheral neuralgia Peripheral neuropathy Phimosis Presbyopia (10/22/13) Pterygium (08/10/08) LEFT EYE Regular astigmatism (10/22/13) Sensorineural hearing loss, bilateral (09/05/17) Tubular adenoma Tubular and tubulovillous adenoma 2011 --suggested repeat 2017 Type 2 diabetes mellitus Ulcer of hermosillo limited to breakdown of skin Umbilical hernia (08/18/12) Ureterolithiasis Urgency of urination (01/03/16) Urinary tract infection UTI (urinary tract infection) Varicose veins of lower extremity (08/10/08) Venous insufficiency Venous insufficiency (chronic) (peripheral) Surgical History History of transurethral destruction of bladder lesion Hx of total knee arthroplasty Pt reports he has had a left and right knee repacement. Pt doesnt remember when and thinks he had it done at [facility] [place] Fundoplication Repair of umbilical hernia Laparoscopic Aviva-en-y surgery for weight loss S/P cholecystectomy (~01/04/21) acute hemorrhagic cholecystitis and xanthogranulomatous inflammation S/P colonoscopy [facility]-2011- tubular and tubulovillous polyps [facility]- 2019- sessile serrated with low grade dysplacia, tubullovillous with high grade dysplacia and tubular adenomas S/P partial colectomy (~05/09/20) Status post abdominoplasty (05/23/16) Status post cholecystectomy Status post tonsillectomy Status post total knee replacement B/L Vasectomy Family History Mother Cancer Father Heart disease Sister Cancer Sister No problems noted. Brother No problems noted. Brother No problems noted. Brother No problems noted. Son No problems noted. Son No problems noted. Son No problems noted. Social History Smoking/Tobacco Use Status: Never Second Hand Exposure: Yes Smoking risk assessment performed?: Yes Alcohol Intake: never Drug use: Never Substance use type: does not use Caregiver/Support person: No Household members: other Details: son Housing: house Communication Needs: None Education Level: high school Do you need help understanding health information?: Never Pets and animals: No Do you think of yourself as: straight/heterosexual Current gender identity: male What is your relationship status?: How often do you talk on the phone with friends or family?: once per week How often do you get together with friends or relatives?: decline to answer How often do you attend cheondoism or sabianist services?: decline to answer Do you belong to any clubs or organized social groups?: no Panel score (0-1 are the most socially isolated patients): 0 What type of physical activity do you participate in: walking Duration: 15-30 minutes/day Frequency: 1-2 times per week Velia/Temple: Jewish Special velia needs: No Seatbelt use: always Helmet use: No Drive intox or ride w/intox tow motor driver: No Do you feel safe at home: Yes Do you feel safe in your relationship?: Yes Exam Narrative Exam Narrative: Exam limited to visual exam only given patient's refusal of any care. Const General: cooperative, no acute distress and not ill appearing Orientation: alert and awake HENMT Mouth: moist mucous membranes Resp Effort & Inspection: normal respiratory effort, able to speak in complete sentences and no respiratory distress Neuro General: patient alert, patient awake and moves all extremities Course Vital Signs Vital signs: Vital Signs Temperature 36.4 C L 07/12/23 13:13 Pulse 83 07/12/23 13:13 Respiratory Rate 18 07/12/23 13:13 Blood Pressure 107/96 H 07/12/23 13:13 Pulse Oximetry 100 07/12/23 13:13 Temperature 36.4 C L 07/12/23 13:13 Temperature Source Skin 07/12/23 13:13 Pulse 83 07/12/23 13:13 Respiratory Rate 18 07/12/23 13:13 Blood Pressure 107/96 H 07/12/23 13:13 Blood Pressure Position Sitting 07/12/23 13:13 Pulse Oximetry 100 07/12/23 13:13 Oxygen Delivery Method Room Air 07/12/23 13:13 Oxygen Flow Rate 0 07/12/23 13:13 Pain Level 0 07/12/23 13:13
== END 2023-07-12 13:47 | disposition left against medical advice (07) ==
PROVIDERS: Emergency Provider Nurse Practitioner Family; PCP Family Medicine
DX: T83.198A Other mechanical complication of other urinary devices and implants, initial encounter (principal); Z53.21 Procedure and treatment not carried out due to patient leaving prior to being seen by health care provider
CPT/HCPCS: 99283; 99282

== ENCOUNTER 2023-07-16 15:26 | Outpatient (REF) | payer MEDICARE, SELFPAY | END 2023-07-16 15:27 | disposition home or self-care (01) | LOC: NCHCN 15:26 | PROVIDERS: PCP Family Medicine; Visit Provider Family Medicine | DX: N39.0 Urinary tract infection, site not specified (principal) | CPT/HCPCS: 87086 ==

== ENCOUNTER → 2023-08-21 12:14 | Outpatient (BNVA) | payer MEDICARE, SELFPAY | PROVIDERS: PCP Family Medicine; Referring Provider Family Medicine; Visit Provider Nurse Practitioner Gerontology | DX: N13.9 Obstructive and reflux uropathy, unspecified (principal) | CPT/HCPCS: 51702; 99214 ==

== ENCOUNTER → 2023-11-11 12:36 | Outpatient (BNVA) | payer MEDICARE, SELFPAY | PROVIDERS: PCP Family Medicine; Referring Provider Family Medicine; Visit Provider Psychiatry & Neurology Neurology | DX: I63.9 Cerebral infarction, unspecified (principal); R47.01 Aphasia; G40.109 Localization-related (focal) (partial) symptomatic epilepsy and epileptic syndromes with simple partial seizures, not intractable, without status epilepticus | CPT/HCPCS: 99213 ==

== ENCOUNTER 2023-11-12 15:04 | Outpatient (REF) | payer MEDICARE, SELFPAY ==
--- OUTSIDE RECORDS SUMMARY | 2023-11-12 15:05 | XMS_ITS | Continuity of Care Document ---
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 Name Role Phone Physician, Non-Staff [facility] Primary Care Physici an Unavailable Encounter [facility] Date(s): 12/10/22 - 12/27/[address] [address]- Encounter Diagnosis Atrial fibrillation(Discharge Diagnosis) - 12/10/22 Aphasia following cerebral infarction(Final) - Attention and concentration deficit following cerebral infarction(Final) - Acute kidney failure, unspecified(Final) - Full incontinence of feces(Final) - Urinary tract infection, site not specified(Final) - Ischemic stroke of frontal lobe(Discharge Diagnosis) - 12/10/22 Chronic atrial fibrillation, unspecified(Final) - Weakness(Final) - Other abnormalities of gait and mobility(Final) - assistant terminal manager (current) use of anticoagulants(Final) - 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) - Type 2 diabetes mellitus with hyperglycemia(Final) - Hypertensive chronic kidney disease with stage 1 through stage 4 chronic kidney disease, or unspecified chronic kidney disease(Final) - Chronic kidney disease, stage 3 unspecified(Final) - assistant terminal manager (current) use of insulin(Final) - Hyperlipidemia, unspecified(Final) - Obstructive sleep apnea (adult) (pediatric)(Final) - Iron deficiency anemia, unspecified(Final) - Venous insufficiency (chronic) (peripheral)(Final) - Patient's other noncompliance with medication regimen(Final) - Constipation, unspecified(Final) - Other fatigue(Final) - Mild cognitive impairment of uncertain or unknown etiology(Final) - Other specified urinary incontinence(Final) - 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) - 12/10/22 Benign prostatic hyperplasia with lower urinary tract symptoms(Final) - Discharge Disposition: Home Care with Home Health Attending Physician: Lilia Haney MD Admitting Physician: Lilia Haney MD Allergies, Adverse Reactions, Alerts No Known Allergies Assessment and Plan Extracted from: Title:nursing discharge Author:Loly Aiken RN Date:12/27/22 Nursing Assessment VSS, assessment benign, no changes Psychosocial / Cognitive patient is non-verbal and unable to make needs known, nods head to most questions, does not use call light, flat affect, does not spontaneously engage though did say 2 words to his sons today when they arrived Mobility min assist with FWW/guard on right, able to ambulate to bathroom Pain no c/o pain, no s/s of discomfort Safety patient alarmed, not using call light- in reach at all times Medication needs / Diet pt taking pills in applesauce or pudding- crushed, good appetite at meals, covered with insulin per order Bowel / Bladder continent/incontinent, BM yesterday Education reviewed discharge materials with 2 sons who asked appropriate questions and were very engaged/ verbalized understanding throughout, pt transferred into vehicle independently with stand by assistance, appeared eager to go home and smiling at staff bidding him farewell and good luck, sons will call if they have further questions Extracted from: Title:SOAP Note: Rehab Note Author:Lilia Haney Date:12/26/22 Health Status Allergies: Allergic Reactions (All) No Known Allergies, Allergies (1) Active Severity Reaction No Known Allergies None Documented Medications Current medications: (Selected) Inpatient Medications Ordered !-DuoNeb: 3 mL, NEB, QID RT, PRN: Shortness of Breath or wheezing Cipro: 250 mg = 1 tab(s), Oral, BID Colace: 100 mg = 1 cap(s), Oral, BID, PRN: Constipation Dulcolax Laxative: 10 mg = 1 supp, Per rectum, Daily, PRN: Constipation Humalog (Lispro) Sliding Scale Medium Dose Algorithm: Medium Dose Scale, Subcutaneous, QIDACHS Lantus: 13 unit(s) = 0.13 mL, Subcutaneous, qPM Metoprolol Tartrate: 50 mg = 1 tab(s), Oral, BID MiraLax: 17 gm = 1 packet(s), Oral, Daily, PRN: Constipation acetaminophen: 650 mg = 2 tab(s), Oral, q4hr, PRN: Pain apixaban: 5 mg = 1 tab(s), Oral, BID atorvastatin: 40 mg = 1 tab(s), Oral, Daily bacitracin zinc 500 units/g topical ointment: 1 dragan, TOP, q8hr, PRN: Other (see comment) dilTIAZem: 60 mg = 2 tab(s), Oral, BID ferrous sulfate: 325 mg = 1 tab(s), Oral, Daily glucagon: 1 mg = 1 vial(s), IM, Daily, PRN: Blood Glucose insulin lispro: 4 unit(s) = 0.04 mL, Subcutaneous, TIDAC levothyroxine: 50 mcg = 1 tab(s), Oral, Daily nystatin 100,000 units/g topical cream: 1 dragan, TOP, BID senna: 17.2 mg = 2 tab(s), Oral, HS, PRN: Constipation tamsulosin: 0.4 mg = 1 cap(s), Oral, Daily Documented Medications Documented Calcium 600+D: 2 tab(s), Oral, Daily, 0 Refill(s) Lantus 100 units/mL subcutaneous solution: 10 unit(s), Subcutaneous, Once a day (at bedtime), 10 mL, 0 Refill(s) Charleston-3 1000 mg oral capsule: 1,000 mg = 1 cap(s), Oral, Daily, 0 Refill(s) Vitamin C 1000 mg oral tablet: 1,000 mg = 1 tab(s), Oral, Daily, 30 tab(s), 0 Refill(s) apixaban 5 mg oral tablet: 5 mg = 1 tab(s), Oral, BID, 60 tab(s), 0 Refill(s) cyanocobalamin 500 mcg oral tablet: 500 mcg = 1 tab(s), Oral, Daily, 30 tab(s), 0 Refill(s) dapagliflozin 10 mg oral tablet: 10 mg = 1 tab(s), Oral, Daily, 0 Refill(s) dilTIAZem 300 mg/24 hours oral capsule, extended release: 300 mg = 1 cap(s), Oral, Daily, 30 cap(s), 0 Refill(s) ferrous sulfate (as elemental iron) 45 mg oral tablet, extended release: 45 mg = 1 tab(s), Oral, Daily, 30 tab(s), 0 Refill(s) finasteride 5 mg oral tablet: 5 mg = 1 tab(s), Oral, Daily, 30 tab(s), 0 Refill(s) furosemide 20 mg oral tablet: 40 mg = 2 tab(s), Oral, Daily, 30 tab(s), 0 Refill(s) levothyroxine 50 mcg (0.05 mg) oral tablet: 50 mcg = 1 tab(s), Oral, Daily, 30 tab(s), 0 Refill(s) lisinopril 5 mg oral tablet: 5 mg = 1 tab(s), Oral, Daily, 30 tab(s), 0 Refill(s) lovastatin 20 mg oral tablet: 20 mg = 1 tab(s), Oral, Daily, 30 tab(s), 0 Refill(s) metFORMIN 1000 mg oral tablet: 1,000 mg = 1 tab(s), Oral, BID, 60 tab(s), 0 Refill(s) metoprolol succinate 100 mg oral tablet, extended release: 100 mg = 1 tab(s), Oral, Daily, 30 tab(s), 0 Refill(s) multivitamin: 2 tab(s), Oral, Daily, 0 Refill(s) nystatin 100,000 units/g topical cream: 1 dragan, TOP, BID, 15 gm, 0 Refill(s) semaglutide 7 mg oral tablet: 7 mg = 1 tab(s), Oral, Daily, 0 Refill(s) tamsulosin 0.4 mg oral capsule: 0.4 mg = 1 cap(s), Oral, Daily, 30 cap(s), 0 Refill(s), Medications (20) Active Scheduled: (12) apixaban 5 mg tab [[facility]] 5 mg 1 tab(s), Oral, BID atorvastatin 40 mg Tab [[facility]] 40 mg 1 tab(s), Oral, Daily ciprofloxacin 250 mg Tab [[facility]] 250 mg 1 tab(s), Oral, BID dilTIAZem 30 mg Tab [[facility]] 60 mg 2 tab(s), Oral, BID ferrous sulfate [address] Tab [[facility]] 325 mg 1 tab(s), Oral, Daily insulin glargine 100 units/mL SubQ [[facility]] 13 unit(s) 0.13 mL, Subcutaneous, qPM insulin lispro (HumaLOG) 100 units/mL SubQ PEN [[facility]] 4 unit(s) 0.04 mL, Subcutaneous, TIDAC insulin lispro (HumaLOG) 100 units/mL SubQ PEN [[facility]] Medium Dose Scale, Subcutaneous, QIDACHS levothyroxine 50 mcg (0.05 mg) Tab [[facility]] 50 mcg 1 tab(s), Oral, Daily metoprolol 50 mg Tab [[facility]] 50 mg 1 tab(s), Oral, BID nystatin Top 100,000 units/g Crm [[facility]] 1 dragan, TOP, BID tamsulosin 0.4 mg Oral Cap [[facility]] 0.4 mg 1 cap(s), Oral, Daily Continuous: (0) PRN: (8) acetaminophen 325 mg Tab [[facility]] 650 mg 2 tab(s), Oral, q4hr albuterol-ipratropium Inh Tammy 3 mL [[facility]] 3 mL, NEB, QID RT bacitracin zinc 500 units/g Top Oint UD [[facility]] 1 dragan, TOP, q8hr bisacodyl 10 mg Supp [[facility]] 10 mg 1 supp, Per rectum, Daily docusate sodium 100 mg Cap [[facility]] 100 mg 1 cap(s), Oral, BID glucagon recombinant 1 mg Inj [[facility]] 1 mg 1 vial(s), IM, Daily polyethylene glycol 3350 Oral Pwdr Recon [[facility]] 17 gm 1 packet(s), Oral, Daily senna 8.6 mg Tab [[facility]] 17.2 mg 2 tab(s), Oral, HS . Problem list: All Problems Atrial fibrillation / [id number] / Confirmed BPH (benign prostatic hyperplasia) / [id number] / Confirmed Dementia / [id number] / Confirmed Depression / 68784718 / Confirmed HLD (hyperlipidemia) / 47694457 / Confirmed HTN (hypertension) / 0499562715 / Confirmed Iron deficiency anemia / 268821115 / Confirmed CARLOS A on CPAP / [id number] / Confirmed Peripheral neuropathy / [id number] / Confirmed T2DM (type 2 diabetes mellitus) / 242580714 / Confirmed Ureterolithiasis / 22809769 / Confirmed Venous insufficiency / 532557730 / Confirmed, Active Problems (12) Atrial fibrillation BPH (benign prostatic hyperplasia) Dementia Depression HLD (hyperlipidemia) HTN (hypertension) Iron deficiency anemia CARLOS A on CPAP Peripheral neuropathy T2DM (type 2 diabetes mellitus) Ureterolithiasis Venous insufficiency Impression and Plan #bilateral strokes, embolic: #right cerebellar stroke #left MCA stroke nonverbal, expressive > receptive aphasia, apparent weakness BUE and LE is mild daily 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 #afib apixaban restarted, and on metoprolol and dilt in short acting formulations as pt has been chewing capsules dilt reduced to 60 bid as not been getting doses due to soft BPs <120 #HTN HLD period of permissive HTN has ended BP 110-140 still soft; can restart lisinopril then lasix as needed if BPs start trending up weight 98->91->90 kg (do not believe 98 is accurate); continue to follow daily weights consider restarting lasix if weights start trending up; currently stable 90-91 kg #CKD stage 3 baseline Cr at 1.9 to 2 - Cr at 1.3-1.4 when admitted, now 1.7-1.9, trending back up recheck BMP every few days; next check in am continuing to hold lasix, lisinopril for now given BP 110-130s #DM2 HbA1C at 10, poor control ? noncompliance with medications at home Lantus increased to 13 from 10. Medium ISS with 4 units tid AC. Oral meds metformin semaglutide and dapagliflozin held BGs 130-200, reasonable control Monitor BG qid and adjust program as needed. 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 Extracted from: Title:SOAP Note: Rehab Note Author:Lilia Haney Date:12/24/22 Health Status Allergies: Allergic Reactions (All) No Known Allergies, Allergies (1) Active Severity Reaction No Known Allergies None Documented Medications Current medications: (Selected) Inpatient Medications Ordered !-DuoNeb: 3 mL, NEB, QID RT, PRN: Shortness of Breath or wheezing Cipro: 250 mg = 1 tab(s), Oral, BID Colace: 100 mg = 1 cap(s), Oral, BID, PRN: Constipation Dulcolax Laxative: 10 mg = 1 supp, Per rectum, Daily, PRN: Constipation Humalog (Lispro) Sliding Scale Medium Dose Algorithm: Medium Dose Scale, Subcutaneous, QIDACHS Lantus: 13 unit(s) = 0.13 mL, Subcutaneous, qPM Metoprolol Tartrate: 50 mg = 1 tab(s), Oral, BID MiraLax: 17 gm = 1 packet(s), Oral, Daily, PRN: Constipation acetaminophen: 650 mg = 2 tab(s), Oral, q4hr, PRN: Pain apixaban: 5 mg = 1 tab(s), Oral, BID atorvastatin: 40 mg = 1 tab(s), Oral, Daily bacitracin zinc 500 units/g topical ointment: 1 dragan, TOP, q8hr, PRN: Other (see comment) dilTIAZem: 60 mg = 2 tab(s), Oral, BID ferrous sulfate: 325 mg = 1 tab(s), Oral, Daily glucagon: 1 mg = 1 vial(s), IM, Daily, PRN: Blood Glucose insulin lispro: 4 unit(s) = 0.04 mL, Subcutaneous, TIDAC levothyroxine: 50 mcg = 1 tab(s), Oral, Daily nystatin 100,000 units/g topical cream: 1 dragan, TOP, BID senna: 17.2 mg = 2 tab(s), Oral, HS, PRN: Constipation tamsulosin: 0.4 mg = 1 cap(s), Oral, Daily Documented Medications Documented Calcium 600+D: 2 tab(s), Oral, Daily, 0 Refill(s) Lantus 100 units/mL subcutaneous solution: 10 unit(s), Subcutaneous, Once a day (at bedtime), 10 mL, 0 Refill(s) Charleston-3 1000 mg oral capsule: 1,000 mg = 1 cap(s), Oral, Daily, 0 Refill(s) Vitamin C 1000 mg oral tablet: 1,000 mg = 1 tab(s), Oral, Daily, 30 tab(s), 0 Refill(s) apixaban 5 mg oral tablet: 5 mg = 1 tab(s), Oral, BID, 60 tab(s), 0 Refill(s) cyanocobalamin 500 mcg oral tablet: 500 mcg = 1 tab(s), Oral, Daily, 30 tab(s), 0 Refill(s) dapagliflozin 10 mg oral tablet: 10 mg = 1 tab(s), Oral, Daily, 0 Refill(s) dilTIAZem 300 mg/24 hours oral capsule, extended release: 300 mg = 1 cap(s), Oral, Daily, 30 cap(s), 0 Refill(s) ferrous sulfate (as elemental iron) 45 mg oral tablet, extended release: 45 mg = 1 tab(s), Oral, Daily, 30 tab(s), 0 Refill(s) finasteride 5 mg oral tablet: 5 mg = 1 tab(s), Oral, Daily, 30 tab(s), 0 Refill(s) furosemide 20 mg oral tablet: 40 mg = 2 tab(s), Oral, Daily, 30 tab(s), 0 Refill(s) levothyroxine 50 mcg (0.05 mg) oral tablet: 50 mcg = 1 tab(s), Oral, Daily, 30 tab(s), 0 Refill(s) lisinopril 5 mg oral tablet: 5 mg = 1 tab(s), Oral, Daily, 30 tab(s), 0 Refill(s) lovastatin 20 mg oral tablet: 20 mg = 1 tab(s), Oral, Daily, 30 tab(s), 0 Refill(s) metFORMIN 1000 mg oral tablet: 1,000 mg = 1 tab(s), Oral, BID, 60 tab(s), 0 Refill(s) metoprolol succinate 100 mg oral tablet, extended release: 100 mg = 1 tab(s), Oral, Daily, 30 tab(s), 0 Refill(s) multivitamin: 2 tab(s), Oral, Daily, 0 Refill(s) nystatin 100,000 units/g topical cream: 1 dragan, TOP, BID, 15 gm, 0 Refill(s) semaglutide 7 mg oral tablet: 7 mg = 1 tab(s), Oral, Daily, 0 Refill(s) tamsulosin 0.4 mg oral capsule: 0.4 mg = 1 cap(s), Oral, Daily, 30 cap(s), 0 Refill(s), Medications (20) Active Scheduled: (12) apixaban 5 mg tab [[facility]] 5 mg 1 tab(s), Oral, BID atorvastatin 40 mg Tab [[facility]] 40 mg 1 tab(s), Oral, Daily ciprofloxacin 250 mg Tab [[facility]] 250 mg 1 tab(s), Oral, BID dilTIAZem 30 mg Tab [[facility]] 60 mg 2 tab(s), Oral, BID ferrous sulfate [address] Tab [[facility]] 325 mg 1 tab(s), Oral, Daily insulin glargine 100 units/mL SubQ [[facility]] 13 unit(s) 0.13 mL, Subcutaneous, qPM insulin lispro (HumaLOG) 100 units/mL SubQ PEN [[facility]] 4 unit(s) 0.04 mL, Subcutaneous, TIDAC insulin lispro (HumaLOG) 100 units/mL SubQ PEN [[facility]] Medium Dose Scale, Subcutaneous, QIDACHS levothyroxine 50 mcg (0.05 mg) Tab [[facility]] 50 mcg 1 tab(s), Oral, Daily metoprolol 50 mg Tab [[facility]] 50 mg 1 tab(s), Oral, BID nystatin Top 100,000 units/g Crm [[facility]] 1 dragan, TOP, BID tamsulosin 0.4 mg Oral Cap [[facility]] 0.4 mg 1 cap(s), Oral, Daily Continuous: (0) PRN: (8) acetaminophen 325 mg Tab [[facility]] 650 mg 2 tab(s), Oral, q4hr albuterol-ipratropium Inh Tammy 3 mL [[facility]] 3 mL, NEB, QID RT bacitracin zinc 500 units/g Top Oint UD [[facility]] 1 dragan, TOP, q8hr bisacodyl 10 mg Supp [[facility]] 10 mg 1 supp, Per rectum, Daily docusate sodium 100 mg Cap [[facility]] 100 mg 1 cap(s), Oral, BID glucagon recombinant 1 mg Inj [[facility]] 1 mg 1 vial(s), IM, Daily polyethylene glycol 3350 Oral Pwdr Recon [[facility]] 17 gm 1 packet(s), Oral, Daily senna 8.6 mg Tab [[facility]] 17.2 mg 2 tab(s), Oral, HS . Problem list: All Problems Atrial fibrillation / [id number] / Confirmed BPH (benign prostatic hyperplasia) / 220744281 / Confirmed Dementia / 52904449 / Confirmed Depression / 88719252 / Confirmed HLD (hyperlipidemia) / 77076794 / Confirmed HTN (hypertension) / 1350256448 / Confirmed Iron deficiency anemia / 000044207 / Confirmed CARLOS A on CPAP / 662468329 / Confirmed Peripheral neuropathy / 4280694095 / Confirmed T2DM (type 2 diabetes mellitus) / 633180124 / Confirmed Ureterolithiasis / 89911897 / Confirmed Venous insufficiency / 922595062 / Confirmed, Active Problems (12) Atrial fibrillation BPH (benign prostatic hyperplasia) Dementia Depression HLD (hyperlipidemia) HTN (hypertension) Iron deficiency anemia CARLOS A on CPAP Peripheral neuropathy T2DM (type 2 diabetes mellitus) Ureterolithiasis Venous insufficiency Impression and Plan #bilateral strokes, embolic: #right cerebellar stroke #left MCA stroke nonverbal, expressive > receptive aphasia, apparent weakness BUE and LE is mild daily 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 #afib apixaban restarted, and on metoprolol and dilt in short acting formulations as pt has been chewing capsules dilt reduced to 60 bid as not been getting doses due to soft BPs <120 #HTN HLD period of permissive HTN has ended BP 110-140 still soft; can restart lisinopril then lasix as needed if BPs start trending up weight 98->91->90 kg (do not believe 98 is accurate); continue to follow daily weights consider restarting lasix if weights start trending up; currently stable 90-91 kg #CKD stage 3 baseline Cr at 1.9 to 2 - Cr at 1.3-1.4 when admitted, now 1.7-1.9, trending back up recheck BMP every few days; next check in am continuing to hold lasix, lisinopril for now given BP 110-130s #DM2 HbA1C at 10, poor control ? noncompliance with medications at home Lantus increased to 13 from 10. Medium ISS with 4 units tid AC. Oral meds metformin semaglutide and dapagliflozin held BGs 130-200, reasonable control Monitor BG qid and adjust program as needed. # 1st culture showed dennis f/u urine cultures negative for dennis; grew 1-9k mixed red thornton out 12/13 and bladder scans 100-400cc, but random given pt is typically incontinent #dispo anticipate 2.5 week LOS, home with home health services (lives with supportive son) f/u PCP neuro Code Status: no CPR but ok to intubate if for reversible cause. #Potential or actual clinically significant medication issues addressed per CMS regulations: YES dilt reduced Did the facility complete prescribed/recommended actions in response to the identified potentially clinically significant medication issues by midnight of the next calendar day? YES Extracted from: Title:SOAP Note: Rehab Note Author:Lilia Haney Date:12/20/22 Health Status Allergies: Allergic Reactions (All) No Known Allergies, Allergies (1) Active Severity Reaction No Known Allergies None Documented Medications Current medications: (Selected) Inpatient Medications Ordered !-DuoNeb: 3 mL, NEB, QID RT, PRN: Shortness of Breath or wheezing Colace: 100 mg = 1 cap(s), Oral, BID Dulcolax Laxative: 10 mg = 1 supp, Per rectum, Daily, PRN: Constipation Humalog (Lispro) Sliding Scale Medium Dose Algorithm: Medium Dose Scale, Subcutaneous, QIDACHS Lantus: 13 unit(s) = 0.13 mL, Subcutaneous, qPM Metoprolol Tartrate: 50 mg = 1 tab(s), Oral, BID MiraLax: 17 gm = 1 packet(s), Oral, Daily, PRN: Constipation acetaminophen: 650 mg = 2 tab(s), Oral, q4hr, PRN: Pain apixaban: 5 mg = 1 tab(s), Oral, BID atorvastatin: 40 mg = 1 tab(s), Oral, Daily bacitracin zinc 500 units/g topical ointment: 1 dragan, TOP, q8hr, PRN: Other (see comment) dilTIAZem: 60 mg = 2 tab(s), Oral, q6hr ferrous sulfate: 325 mg = 1 tab(s), Oral, Daily glucagon: 1 mg = 1 vial(s), IM, Daily, PRN: Blood Glucose insulin lispro: 4 unit(s) = 0.04 mL, Subcutaneous, TIDAC levothyroxine: 50 mcg = 1 tab(s), Oral, Daily nystatin 100,000 units/g topical cream: 1 dragan, TOP, BID senna: 17.2 mg = 2 tab(s), Oral, HS tamsulosin: 0.4 mg = 1 cap(s), Oral, Daily Documented Medications Documented Calcium 600+D: 2 tab(s), Oral, Daily, 0 Refill(s) Lantus 100 units/mL subcutaneous solution: 10 unit(s), Subcutaneous, Once a day (at bedtime), 10 mL, 0 Refill(s) Charleston-3 1000 mg oral capsule: 1,000 mg = 1 cap(s), Oral, Daily, 0 Refill(s) Vitamin C 1000 mg oral tablet: 1,000 mg = 1 tab(s), Oral, Daily, 30 tab(s), 0 Refill(s) apixaban 5 mg oral tablet: 5 mg = 1 tab(s), Oral, BID, 60 tab(s), 0 Refill(s) cyanocobalamin 500 mcg oral tablet: 500 mcg = 1 tab(s), Oral, Daily, 30 tab(s), 0 Refill(s) dapagliflozin 10 mg oral tablet: 10 mg = 1 tab(s), Oral, Daily, 0 Refill(s) dilTIAZem 300 mg/24 hours oral capsule, extended release: 300 mg = 1 cap(s), Oral, Daily, 30 cap(s), 0 Refill(s) ferrous sulfate (as elemental iron) 45 mg oral tablet, extended release: 45 mg = 1 tab(s), Oral, Daily, 30 tab(s), 0 Refill(s) finasteride 5 mg oral tablet: 5 mg = 1 tab(s), Oral, Daily, 30 tab(s), 0 Refill(s) furosemide 20 mg oral tablet: 40 mg = 2 tab(s), Oral, Daily, 30 tab(s), 0 Refill(s) levothyroxine 50 mcg (0.05 mg) oral tablet: 50 mcg = 1 tab(s), Oral, Daily, 30 tab(s), 0 Refill(s) lisinopril 5 mg oral tablet: 5 mg = 1 tab(s), Oral, Daily, 30 tab(s), 0 Refill(s) lovastatin 20 mg oral tablet: 20 mg = 1 tab(s), Oral, Daily, 30 tab(s), 0 Refill(s) metFORMIN 1000 mg oral tablet: 1,000 mg = 1 tab(s), Oral, BID, 60 tab(s), 0 Refill(s) metoprolol succinate 100 mg oral tablet, extended release: 100 mg = 1 tab(s), Oral, Daily, 30 tab(s), 0 Refill(s) multivitamin: 2 tab(s), Oral, Daily, 0 Refill(s) nystatin 100,000 units/g topical cream: 1 dragan, TOP, BID, 15 gm, 0 Refill(s) semaglutide 7 mg oral tablet: 7 mg = 1 tab(s), Oral, Daily, 0 Refill(s) tamsulosin 0.4 mg oral capsule: 0.4 mg = 1 cap(s), Oral, Daily, 30 cap(s), 0 Refill(s), Medications (19) Active Scheduled: (13) apixaban 5 mg tab [[facility]] 5 mg 1 tab(s), Oral, BID atorvastatin 40 mg Tab [[facility]] 40 mg 1 tab(s), Oral, Daily dilTIAZem 30 mg Tab [[facility]] 60 mg 2 tab(s), Oral, q6hr docusate sodium 100 mg Cap [[facility]] 100 mg 1 cap(s), Oral, BID ferrous sulfate [address] Tab [[facility]] 325 mg 1 tab(s), Oral, Daily insulin glargine 100 units/mL SubQ [[facility]] 13 unit(s) 0.13 mL, Subcutaneous, qPM insulin lispro (HumaLOG) 100 units/mL SubQ PEN [[facility]] 4 unit(s) 0.04 mL, Subcutaneous, TIDAC insulin lispro (HumaLOG) 100 units/mL SubQ PEN [[facility]] Medium Dose Scale, Subcutaneous, QIDACHS levothyroxine 50 mcg (0.05 mg) Tab [[facility]] 50 mcg 1 tab(s), Oral, Daily metoprolol 50 mg Tab [[facility]] 50 mg 1 tab(s), Oral, BID nystatin Top 100,000 units/g Crm [[facility]] 1 dragan, TOP, BID senna 8.6 mg Tab [[facility]] 17.2 mg 2 tab(s), Oral, HS tamsulosin 0.4 mg Oral Cap [[facility]] 0.4 mg 1 cap(s), Oral, Daily Continuous: (0) PRN: (6) acetaminophen 325 mg Tab [[facility]] 650 mg 2 tab(s), Oral, q4hr albuterol-ipratropium Inh Tammy 3 mL [[facility]] 3 mL, NEB, QID RT bacitracin zinc 500 units/g Top Oint UD [[facility]] 1 dragan, TOP, q8hr bisacodyl 10 mg Supp [[facility]] 10 mg 1 supp, Per rectum, Daily glucagon recombinant 1 mg Inj [[facility]] 1 mg 1 vial(s), IM, Daily polyethylene glycol 3350 Oral Pwdr Recon [[facility]] 17 gm 1 packet(s), Oral, Daily . Problem list: All Problems Atrial fibrillation / [id number] / Confirmed BPH (benign prostatic hyperplasia) / 210332797 / Confirmed Dementia / 71492607 / Confirmed Depression / 10050371 / Confirmed HLD (hyperlipidemia) / 12969054 / Confirmed HTN (hypertension) / 6829719062 / Confirmed Iron deficiency anemia / 223991150 / Confirmed CARLOS A on CPAP / 972076786 / Confirmed Peripheral neuropathy / 4520769372 / Confirmed T2DM (type 2 diabetes mellitus) / 509735956 / Confirmed Ureterolithiasis / 72796400 / Confirmed Venous insufficiency / 959955903 / Confirmed, Active Problems (12) Atrial fibrillation BPH (benign prostatic hyperplasia) Dementia Depression HLD (hyperlipidemia) HTN (hypertension) Iron deficiency anemia CARLOS A on CPAP Peripheral neuropathy T2DM (type 2 diabetes mellitus) Ureterolithiasis Venous insufficiency Impression and Plan #bilateral strokes, embolic: #right cerebellar stroke #left MCA stroke nonverbal, expressive > receptive aphasia, apparent weakness BUE and LE is mild daily 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 #afib apixaban restarted, and on metoprolol and dilt in short acting formulations as pt has been chewing capsules #HTN HLD period of permissive HTN has ended BP 110-140 still soft; can restart lisinopril then lasix as needed if BPs start trending up weight 98->91->90 kg (do not believe 98 is accurate); continue to follow daily weights consider restarting lasix if weights start trending up; currently stable 90-91 kg #CKD stage 3 baseline Cr at 1.9 to 2 - Cr at 1.3-1.4 when admitted, now 1.9, trending back up recheck BMP every few days; next check on Fri continuing to hold lasix, lisinopril for now given BP 110-130s #DM2 HbA1C at 10, poor control ? noncompliance with medications at home Lantus increased to 13 from 10. Medium ISS with 4 units tid AC. Oral meds metformin semaglutide and dapagliflozin held BGs 130-200, reasonable control Monitor BG qid and adjust program as needed. # 1st culture showed dennis f/u urine cultures negative for dennis; grew 1-9k mixed red thornton out 3/ and bladder scans 100-400cc, but random given pt is typically incontinent #dispo anticipate 2.5 week LOS, home with home health services (lives with supportive son) f/u PCP neuro Code Status: no CPR but ok to intubate if for reversible cause. #Potential or actual clinically significant medication issues addressed per CMS regulations: No potentially clinically significant medication issues. Extracted from: Title:SOAP Note: Rehab Note Author:Lilia Haney Date:12/19/22 Health Status Allergies: Allergic Reactions (All) No Known Allergies, Allergies (1) Active Severity Reaction No Known Allergies None Documented Medications Current medications: (Selected) Inpatient Medications Ordered !-DuoNeb: 3 mL, NEB, QID RT, PRN: Shortness of Breath or wheezing Colace: 100 mg = 1 cap(s), Oral, BID Dulcolax Laxative: 10 mg = 1 supp, Per rectum, Daily, PRN: Constipation Humalog (Lispro) Sliding Scale Medium Dose Algorithm: Medium Dose Scale, Subcutaneous, QIDACHS Lantus: 13 unit(s) = 0.13 mL, Subcutaneous, qPM Metoprolol Tartrate: 50 mg = 1 tab(s), Oral, BID MiraLax: 17 gm = 1 packet(s), Oral, Daily, PRN: Constipation acetaminophen: 650 mg = 2 tab(s), Oral, q4hr, PRN: Pain apixaban: 5 mg = 1 tab(s), Oral, BID atorvastatin: 40 mg = 1 tab(s), Oral, Daily bacitracin zinc 500 units/g topical ointment: 1 dragan, TOP, q8hr, PRN: Other (see comment) dilTIAZem: 60 mg = 2 tab(s), Oral, q6hr ferrous sulfate: 325 mg = 1 tab(s), Oral, Daily glucagon: 1 mg = 1 vial(s), IM, Daily, PRN: Blood Glucose insulin lispro: 4 unit(s) = 0.04 mL, Subcutaneous, TIDAC levothyroxine: 50 mcg = 1 tab(s), Oral, Daily nystatin 100,000 units/g topical cream: 1 dragan, TOP, BID senna: 17.2 mg = 2 tab(s), Oral, HS tamsulosin: 0.4 mg = 1 cap(s), Oral, Daily Documented Medications Documented Calcium 600+D: 2 tab(s), Oral, Daily, 0 Refill(s) Lantus 100 units/mL subcutaneous solution: 10 unit(s), Subcutaneous, Once a day (at bedtime), 10 mL, 0 Refill(s) [place]-3 1000 mg oral capsule: 1,000 mg = 1 cap(s), Oral, Daily, 0 Refill(s) Vitamin C 1000 mg oral tablet: 1,000 mg = 1 tab(s), Oral, Daily, 30 tab(s), 0 Refill(s) apixaban 5 mg oral tablet: 5 mg = 1 tab(s), Oral, BID, 60 tab(s), 0 Refill(s) cyanocobalamin 500 mcg oral tablet: 500 mcg = 1 tab(s), Oral, Daily, 30 tab(s), 0 Refill(s) dapagliflozin 10 mg oral tablet: 10 mg = 1 tab(s), Oral, Daily, 0 Refill(s) dilTIAZem 300 mg/24 hours oral capsule, extended release: 300 mg = 1 cap(s), Oral, Daily, 30 cap(s), 0 Refill(s) ferrous sulfate (as elemental iron) 45 mg oral tablet, extended release: 45 mg = 1 tab(s), Oral, Daily, 30 tab(s), 0 Refill(s) finasteride 5 mg oral tablet: 5 mg = 1 tab(s), Oral, Daily, 30 tab(s), 0 Refill(s) furosemide 20 mg oral tablet: 40 mg = 2 tab(s), Oral, Daily, 30 tab(s), 0 Refill(s) levothyroxine 50 mcg (0.05 mg) oral tablet: 50 mcg = 1 tab(s), Oral, Daily, 30 tab(s), 0 Refill(s) lisinopril 5 mg oral tablet: 5 mg = 1 tab(s), Oral, Daily, 30 tab(s), 0 Refill(s) lovastatin 20 mg oral tablet: 20 mg = 1 tab(s), Oral, Daily, 30 tab(s), 0 Refill(s) metFORMIN 1000 mg oral tablet: 1,000 mg = 1 tab(s), Oral, BID, 60 tab(s), 0 Refill(s) metoprolol succinate 100 mg oral tablet, extended release: 100 mg = 1 tab(s), Oral, Daily, 30 tab(s), 0 Refill(s) multivitamin: 2 tab(s), Oral, Daily, 0 Refill(s) nystatin 100,000 units/g topical cream: 1 dragan, TOP, BID, 15 gm, 0 Refill(s) semaglutide 7 mg oral tablet: 7 mg = 1 tab(s), Oral, Daily, 0 Refill(s) tamsulosin 0.4 mg oral capsule: 0.4 mg = 1 cap(s), Oral, Daily, 30 cap(s), 0 Refill(s), Medications (19) Active Scheduled: (13) apixaban 5 mg tab [[facility]] 5 mg 1 tab(s), Oral, BID atorvastatin 40 mg Tab [[facility]] 40 mg 1 tab(s), Oral, Daily dilTIAZem 30 mg Tab [[facility]] 60 mg 2 tab(s), Oral, q6hr docusate sodium 100 mg Cap [[facility]] 100 mg 1 cap(s), Oral, BID ferrous sulfate [address] Tab [[facility]] 325 mg 1 tab(s), Oral, Daily insulin glargine 100 units/mL SubQ [[facility]] 13 unit(s) 0.13 mL, Subcutaneous, qPM insulin lispro (HumaLOG) 100 units/mL SubQ PEN [[facility]] 4 unit(s) 0.04 mL, Subcutaneous, TIDAC insulin lispro (HumaLOG) 100 units/mL SubQ PEN [[facility]] Medium Dose Scale, Subcutaneous, QIDACHS levothyroxine 50 mcg (0.05 mg) Tab [[facility]] 50 mcg 1 tab(s), Oral, Daily metoprolol 50 mg Tab [[facility]] 50 mg 1 tab(s), Oral, BID nystatin Top 100,000 units/g Crm [[facility]] 1 dragan, TOP, BID senna 8.6 mg Tab [[facility]] 17.2 mg 2 tab(s), Oral, HS tamsulosin 0.4 mg Oral Cap [[facility]] 0.4 mg 1 cap(s), Oral, Daily Continuous: (0) PRN: (6) acetaminophen 325 mg Tab [[facility]] 650 mg 2 tab(s), Oral, q4hr albuterol-ipratropium Inh Tammy 3 mL [[facility]] 3 mL, NEB, QID RT bacitracin zinc 500 units/g Top Oint UD [[facility]] 1 dragan, TOP, q8hr bisacodyl 10 mg Supp [[facility]] 10 mg 1 supp, Per rectum, Daily glucagon recombinant 1 mg Inj [[facility]] 1 mg 1 vial(s), IM, Daily polyethylene glycol 3350 Oral Pwdr Recon [[facility]] 17 gm 1 packet(s), Oral, Daily . Problem list: All Problems Atrial fibrillation / [id number] / Confirmed BPH (benign prostatic hyperplasia) / [id number] / Confirmed Dementia / [id number] / Confirmed Depression / 84309742 / Confirmed HLD (hyperlipidemia) / 95283941 / Confirmed HTN (hypertension) / 7999763196 / Confirmed Iron deficiency anemia / 145467654 / Confirmed CARLOS A on CPAP / [id number] / Confirmed Peripheral neuropathy / [id number] / Confirmed T2DM (type 2 diabetes mellitus) / 464370512 / Confirmed Ureterolithiasis / 46115867 / Confirmed Venous insufficiency / 587016388 / Confirmed, Active Problems (12) Atrial fibrillation BPH (benign prostatic hyperplasia) Dementia Depression HLD (hyperlipidemia) HTN (hypertension) Iron deficiency anemia CARLOS A on CPAP Peripheral neuropathy T2DM (type 2 diabetes mellitus) Ureterolithiasis Venous insufficiency Impression and Plan #bilateral strokes, embolic #right cerebellar stroke #left MCA stroke nonverbal, expressive > receptive aphasia, apparent weakness BUE and LE is mild daily 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 #afib apixaban restarted, and on metoprolol and dilt in short acting formulations as pt has been chewing capsules #HTN HLD period of permissive HTN has ended BP 110-140; can restart lisinopril then lasix as needed as BPs start trending up weight 98->91->90 kg (do not believe 98 is accurate); continue to follow daily weights consider restarting lasix if weights start trending up #CKD stage 3 baseline Cr at 1.9 to 2 - Cr at 1.3-1.4 when admitted, now 1.9, trending back up recheck BMP every few days; next check on Sat continuing to hold lasix, lisinopril for now given BP 110-130s #DM2 HbA1C at 10, poor control ? noncompliance with medications at home Lantus increased to 13 from 10. Medium ISS with 4 units tid AC. Oral meds metformin semaglutide and dapagliflozin held BGs 110-200 on admission, 110-190 last 24 hrs Monitor BG qid and adjust program as needed. # 1st culture showed dennis f/u urine cultures negative for dennis; grew 1-9k mixed red thornton out / and bladder scans 100-400cc, but random given pt is typically incontinent #dispo anticipate 2.5 week LOS, home with home health services (lives with supportive son) f/u PCP neuro Code Status: no CPR but ok to intubate if for reversible cause. #Potential or actual clinically significant medication issues addressed per CMS regulations: No potentially clinically significant medication issues. Extracted from: Title:SOAP Note: Rehab Note Author:Lilia Haney Date:12/18/22 Health Status Allergies: Allergic Reactions (All) No Known Allergies, Allergies (1) Active Severity Reaction No Known Allergies None Documented Medications Current medications: (Selected) Inpatient Medications Ordered !-DuoNeb: 3 mL, NEB, QID RT, PRN: Shortness of Breath or wheezing Colace: 100 mg = 1 cap(s), Oral, BID Dulcolax Laxative: 10 mg = 1 supp, Per rectum, Daily, PRN: Constipation Humalog (Lispro) Sliding Scale Medium Dose Algorithm: Medium Dose Scale, Subcutaneous, QIDACHS Lantus: 13 unit(s) = 0.13 mL, Subcutaneous, qPM Metoprolol Tartrate: 50 mg = 1 tab(s), Oral, BID MiraLax: 17 gm = 1 packet(s), Oral, Daily, PRN: Constipation acetaminophen: 650 mg = 2 tab(s), Oral, q4hr, PRN: Pain apixaban: 5 mg = 1 tab(s), Oral, BID atorvastatin: 40 mg = 1 tab(s), Oral, Daily bacitracin zinc 500 units/g topical ointment: 1 dragan, TOP, q8hr, PRN: Other (see comment) dilTIAZem: 60 mg = 2 tab(s), Oral, q6hr ferrous sulfate: 325 mg = 1 tab(s), Oral, Daily glucagon: 1 mg = 1 vial(s), IM, Daily, PRN: Blood Glucose insulin lispro: 4 unit(s) = 0.04 mL, Subcutaneous, TIDAC levothyroxine: 50 mcg = 1 tab(s), Oral, Daily nystatin 100,000 units/g topical cream: 1 dragan, TOP, BID senna: 17.2 mg = 2 tab(s), Oral, HS tamsulosin: 0.4 mg = 1 cap(s), Oral, Daily Documented Medications Documented Calcium 600+D: 2 tab(s), Oral, Daily, 0 Refill(s) Lantus 100 units/mL subcutaneous solution: 10 unit(s), Subcutaneous, Once a day (at bedtime), 10 mL, 0 Refill(s) [place]-3 1000 mg oral capsule: 1,000 mg = 1 cap(s), Oral, Daily, 0 Refill(s) Vitamin C 1000 mg oral tablet: 1,000 mg = 1 tab(s), Oral, Daily, 30 tab(s), 0 Refill(s) apixaban 5 mg oral tablet: 5 mg = 1 tab(s), Oral, BID, 60 tab(s), 0 Refill(s) cyanocobalamin 500 mcg oral tablet: 500 mcg = 1 tab(s), Oral, Daily, 30 tab(s), 0 Refill(s) dapagliflozin 10 mg oral tablet: 10 mg = 1 tab(s), Oral, Daily, 0 Refill(s) dilTIAZem 300 mg/24 hours oral capsule, extended release: 300 mg = 1 cap(s), Oral, Daily, 30 cap(s), 0 Refill(s) ferrous sulfate (as elemental iron) 45 mg oral tablet, extended release: 45 mg = 1 tab(s), Oral, Daily, 30 tab(s), 0 Refill(s) finasteride 5 mg oral tablet: 5 mg = 1 tab(s), Oral, Daily, 30 tab(s), 0 Refill(s) furosemide 20 mg oral tablet: 40 mg = 2 tab(s), Oral, Daily, 30 tab(s), 0 Refill(s) levothyroxine 50 mcg (0.05 mg) oral tablet: 50 mcg = 1 tab(s), Oral, Daily, 30 tab(s), 0 Refill(s) lisinopril 5 mg oral tablet: 5 mg = 1 tab(s), Oral, Daily, 30 tab(s), 0 Refill(s) lovastatin 20 mg oral tablet: 20 mg = 1 tab(s), Oral, Daily, 30 tab(s), 0 Refill(s) metFORMIN 1000 mg oral tablet: 1,000 mg = 1 tab(s), Oral, BID, 60 tab(s), 0 Refill(s) metoprolol succinate 100 mg oral tablet, extended release: 100 mg = 1 tab(s), Oral, Daily, 30 tab(s), 0 Refill(s) multivitamin: 2 tab(s), Oral, Daily, 0 Refill(s) nystatin 100,000 units/g topical cream: 1 dragan, TOP, BID, 15 gm, 0 Refill(s) semaglutide 7 mg oral tablet: 7 mg = 1 tab(s), Oral, Daily, 0 Refill(s) tamsulosin 0.4 mg oral capsule: 0.4 mg = 1 cap(s), Oral, Daily, 30 cap(s), 0 Refill(s), Medications (19) Active Scheduled: (13) apixaban 5 mg tab [[facility]] 5 mg 1 tab(s), Oral, BID atorvastatin 40 mg Tab [[facility]] 40 mg 1 tab(s), Oral, Daily dilTIAZem 30 mg Tab [[facility]] 60 mg 2 tab(s), Oral, q6hr docusate sodium 100 mg Cap [[facility]] 100 mg 1 cap(s), Oral, BID ferrous sulfate [address] Tab [[facility]] 325 mg 1 tab(s), Oral, Daily insulin glargine 100 units/mL SubQ [[facility]] 13 unit(s) 0.13 mL, Subcutaneous, qPM insulin lispro (HumaLOG) 100 units/mL SubQ PEN [[facility]] 4 unit(s) 0.04 mL, Subcutaneous, TIDAC insulin lispro (HumaLOG) 100 units/mL SubQ PEN [[facility]] Medium Dose Scale, Subcutaneous, QIDACHS levothyroxine 50 mcg (0.05 mg) Tab [[facility]] 50 mcg 1 tab(s), Oral, Daily metoprolol 50 mg Tab [[facility]] 50 mg 1 tab(s), Oral, BID nystatin Top 100,000 units/g Crm [[facility]] 1 dragan, TOP, BID senna 8.6 mg Tab [[facility]] 17.2 mg 2 tab(s), Oral, HS tamsulosin 0.4 mg Oral Cap [[facility]] 0.4 mg 1 cap(s), Oral, Daily Continuous: (0) PRN: (6) acetaminophen 325 mg Tab [[facility]] 650 mg 2 tab(s), Oral, q4hr albuterol-ipratropium Inh Tammy 3 mL [[facility]] 3 mL, NEB, QID RT bacitracin zinc 500 units/g Top Oint UD [[facility]] 1 dragan, TOP, q8hr bisacodyl 10 mg Supp [[facility]] 10 mg 1 supp, Per rectum, Daily glucagon recombinant 1 mg Inj [[facility]] 1 mg 1 vial(s), IM, Daily polyethylene glycol 3350 Oral Pwdr Recon [[facility]] 17 gm 1 packet(s), Oral, Daily . Problem list: All Problems Atrial fibrillation / [id number] / Confirmed BPH (benign prostatic hyperplasia) / [id number] / Confirmed Dementia / 12338645 / Confirmed Depression / [id number] / Confirmed HLD (hyperlipidemia) / 69617557 / Confirmed HTN (hypertension) / 4421351062 / Confirmed Iron deficiency anemia / 189768220 / Confirmed CARLOS A on CPAP / [id number] / Confirmed Peripheral neuropathy / [id number] / Confirmed T2DM (type 2 diabetes mellitus) / 525600924 / Confirmed Ureterolithiasis / 59058344 / Confirmed Venous insufficiency / 984421451 / Confirmed, Active Problems (12) Atrial fibrillation BPH (benign prostatic hyperplasia) Dementia Depression HLD (hyperlipidemia) HTN (hypertension) Iron deficiency anemia CARLOS A on CPAP Peripheral neuropathy T2DM (type 2 diabetes mellitus) Ureterolithiasis Venous insufficiency Impression and Plan #bilateral strokes, embolic #right cerebellar stroke #left MCA stroke nonverbal, expressive > receptive aphasia, apparent weakness BUE and LE is mild daily 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 #afib apixaban restarted, and on metoprolol and dilt in short acting formulations as pt has been chewing capsules #HTN HLD period of permissive HTN has ended BP 110-140; can restart lisnopril then lasix as needed as BPs start trendin gup weight 98->91 kg which I do not believe is accurate; continue to follow weights, changed to daily #CKD stage 3 baseline Cr at 1.9 to 2 - Cr at 1.3-1.4 when admitted, now 1.6, trending back up continuing to hold lasix, lisinopril for now given BP 110-130s recheck BMP prn tomorrow #DM2 HbA1C at 10, poor control ? noncompliance with medications at home Lantus increased to 13 from 10. Medium ISS with 4 units tid AC. Oral meds metformin semaglutide and dapagliflozin held BGs 110-200 on admission, 110-190 last 24 hrs Monitor BG qid and adjust program as needed. # 1st culture showed dennis f/u urine cultures negative for dennis; grew 1-9k mixed red thornton out 12/13 and bladder scans 100-400cc, but random given pt is typically incontinent #dispo anticipate 2.5 week LOS, home with home health services (lives with supportive son) f/u PCP neuro Code Status: no CPR but ok to intubate if for reversible cause. #Potential or actual clinically significant medication issues addressed per CMS regulations: No potentially clinically significant medication issues. ADDENDUM 15 min >50% spent on counselling and coordination of care Extracted from: Title:SOAP Note: Rehab Note Author:Lilia Haney Date:12/17/22 Health Status Allergies: Allergic Reactions (All) No Known Allergies, Allergies (1) Active Severity Reaction No Known Allergies None Documented Medications Current medications: (Selected) Inpatient Medications Ordered !-DuoNeb: 3 mL, NEB, QID RT, PRN: Shortness of Breath or wheezing Colace: 100 mg = 1 cap(s), Oral, BID Dulcolax Laxative: 10 mg = 1 supp, Per rectum, Daily, PRN: Constipation Humalog (Lispro) Sliding Scale Medium Dose Algorithm: Medium Dose Scale, Subcutaneous, QIDACHS Lantus: 13 unit(s) = 0.13 mL, Subcutaneous, qPM Metoprolol Tartrate: 50 mg = 1 tab(s), Oral, BID MiraLax: 17 gm = 1 packet(s), Oral, Daily, PRN: Constipation acetaminophen: 650 mg = 2 tab(s), Oral, q4hr, PRN: Pain apixaban: 5 mg = 1 tab(s), Oral, BID atorvastatin: 40 mg = 1 tab(s), Oral, Daily bacitracin zinc 500 units/g topical ointment: 1 dragan, TOP, q8hr, PRN: Other (see comment) dilTIAZem: 60 mg = 2 tab(s), Oral, q6hr ferrous sulfate: 325 mg = 1 tab(s), Oral, Daily glucagon: 1 mg = 1 vial(s), IM, Daily, PRN: Blood Glucose insulin lispro: 4 unit(s) = 0.04 mL, Subcutaneous, TIDAC levothyroxine: 50 mcg = 1 tab(s), Oral, Daily nystatin 100,000 units/g topical cream: 1 dragan, TOP, BID senna: 17.2 mg = 2 tab(s), Oral, HS tamsulosin: 0.4 mg = 1 cap(s), Oral, Daily Documented Medications Documented Calcium 600+D: 2 tab(s), Oral, Daily, 0 Refill(s) Lantus 100 units/mL subcutaneous solution: 10 unit(s), Subcutaneous, Once a day (at bedtime), 10 mL, 0 Refill(s) [place]-3 1000 mg oral capsule: 1,000 mg = 1 cap(s), Oral, Daily, 0 Refill(s) Vitamin C 1000 mg oral tablet: 1,000 mg = 1 tab(s), Oral, Daily, 30 tab(s), 0 Refill(s) apixaban 5 mg oral tablet: 5 mg = 1 tab(s), Oral, BID, 60 tab(s), 0 Refill(s) cyanocobalamin 500 mcg oral tablet: 500 mcg = 1 tab(s), Oral, Daily, 30 tab(s), 0 Refill(s) dapagliflozin 10 mg oral tablet: 10 mg = 1 tab(s), Oral, Daily, 0 Refill(s) dilTIAZem 300 mg/24 hours oral capsule, extended release: 300 mg = 1 cap(s), Oral, Daily, 30 cap(s), 0 Refill(s) ferrous sulfate (as elemental iron) 45 mg oral tablet, extended release: 45 mg = 1 tab(s), Oral, Daily, 30 tab(s), 0 Refill(s) finasteride 5 mg oral tablet: 5 mg = 1 tab(s), Oral, Daily, 30 tab(s), 0 Refill(s) furosemide 20 mg oral tablet: 40 mg = 2 tab(s), Oral, Daily, 30 tab(s), 0 Refill(s) levothyroxine 50 mcg (0.05 mg) oral tablet: 50 mcg = 1 tab(s), Oral, Daily, 30 tab(s), 0 Refill(s) lisinopril 5 mg oral tablet: 5 mg = 1 tab(s), Oral, Daily, 30 tab(s), 0 Refill(s) lovastatin 20 mg oral tablet: 20 mg = 1 tab(s), Oral, Daily, 30 tab(s), 0 Refill(s) metFORMIN 1000 mg oral tablet: 1,000 mg = 1 tab(s), Oral, BID, 60 tab(s), 0 Refill(s) metoprolol succinate 100 mg oral tablet, extended release: 100 mg = 1 tab(s), Oral, Daily, 30 tab(s), 0 Refill(s) multivitamin: 2 tab(s), Oral, Daily, 0 Refill(s) nystatin 100,000 units/g topical cream: 1 dragan, TOP, BID, 15 gm, 0 Refill(s) semaglutide 7 mg oral tablet: 7 mg = 1 tab(s), Oral, Daily, 0 Refill(s) tamsulosin 0.4 mg oral capsule: 0.4 mg = 1 cap(s), Oral, Daily, 30 cap(s), 0 Refill(s), Medications (19) Active Scheduled: (13) apixaban 5 mg tab [[facility]] 5 mg 1 tab(s), Oral, BID atorvastatin 40 mg Tab [[facility]] 40 mg 1 tab(s), Oral, Daily dilTIAZem 30 mg Tab [[facility]] 60 mg 2 tab(s), Oral, q6hr docusate sodium 100 mg Cap [[facility]] 100 mg 1 cap(s), Oral, BID ferrous sulfate [address] Tab [[facility]] 325 mg 1 tab(s), Oral, Daily insulin glargine 100 units/mL SubQ [[facility]] 13 unit(s) 0.13 mL, Subcutaneous, qPM insulin lispro (HumaLOG) 100 units/mL SubQ PEN [[facility]] 4 unit(s) 0.04 mL, Subcutaneous, TIDAC insulin lispro (HumaLOG) 100 units/mL SubQ PEN [[facility]] Medium Dose Scale, Subcutaneous, QIDACHS levothyroxine 50 mcg (0.05 mg) Tab [[facility]] 50 mcg 1 tab(s), Oral, Daily metoprolol 50 mg Tab [[facility]] 50 mg 1 tab(s), Oral, BID nystatin Top 100,000 units/g Crm [[facility]] 1 dragan, TOP, BID senna 8.6 mg Tab [[facility]] 17.2 mg 2 tab(s), Oral, HS tamsulosin 0.4 mg Oral Cap [[facility]] 0.4 mg 1 cap(s), Oral, Daily Continuous: (0) PRN: (6) acetaminophen 325 mg Tab [[facility]] 650 mg 2 tab(s), Oral, q4hr albuterol-ipratropium Inh Tammy 3 mL [[facility]] 3 mL, NEB, QID RT bacitracin zinc 500 units/g Top Oint UD [[facility]] 1 dragan, TOP, q8hr bisacodyl 10 mg Supp [[facility]] 10 mg 1 supp, Per rectum, Daily glucagon recombinant 1 mg Inj [[facility]] 1 mg 1 vial(s), IM, Daily polyethylene glycol 3350 Oral Pwdr Recon [[facility]] 17 gm 1 packet(s), Oral, Daily . Problem list: All Problems Atrial fibrillation / [id number] / Confirmed BPH (benign prostatic hyperplasia) / [id number] / Confirmed Dementia / 30792423 / Confirmed Depression / 64261792 / Confirmed HLD (hyperlipidemia) / 97922621 / Confirmed HTN (hypertension) / 6022474268 / Confirmed Iron deficiency anemia / 764737788 / Confirmed CARLOS A on CPAP / 418106388 / Confirmed Peripheral neuropathy / [id number] / Confirmed T2DM (type 2 diabetes mellitus) / 717638159 / Confirmed Ureterolithiasis / 40324720 / Confirmed Venous insufficiency / 704589252 / Confirmed, Active Problems (12) Atrial fibrillation BPH (benign prostatic hyperplasia) Dementia Depression HLD (hyperlipidemia) HTN (hypertension) Iron deficiency anemia CARLOS A on CPAP Peripheral neuropathy T2DM (type 2 diabetes mellitus) Ureterolithiasis Venous insufficiency Impression and Plan #bilateral strokes, embolic #right cerebellar stroke #left MCA stroke nonverbal, expressive > receptive aphasia, apparent weakness BUE and LE daily 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 #afib apixaban restarted, and on metoprolol and dilt in short acting formulations as pt has been chewing capsules #HTN HLD period of permissive HTN has ended BP 110-130 over weekend, still soft can restart lisnopril then lasix as needed weight 98->91 kg which I do not believe is accurate; continue to follow weights, will change to daily #CKD stage 3 baseline Cr at 1.9 to 2 - Cr at 1.3-1.4 when admitted, now 1.6, trending back up continuing to hold lasix, lisinopril for now given BP 110-130s recheck BMP prn, next on Sat #DM2 HbA1C at 10, poor control ? noncompliance with medications at home Lantus increased to 13 from 10. Medium ISS with 4 units tid AC. Oral meds metformin semaglutide and dapagliflozin held BGs 150-200 on admission, 100-160 last 24 hrs, improved Monitor BG qid and adjust program as needed. # 1st culture showed dennis f/u urine cultures negative for dennis; grew 1-9k mixed red thornton out 3/ and bladder scans 100-400cc, but random given pt is typically incontinent #dispo anticipate 2.5 week LOS, home with home health services (lives with supportive son) f/u PCP neuro Code Status: no CPR but ok to intubate if for reversible cause. #Potential or actual clinically significant medication issues addressed per CMS regulations: No potentially clinically significant medication issues. Extracted from: Title:SOAP Note: Rehab Note Author:Lilia Haney Date:12/14/22 Health Status Allergies: Allergic Reactions (All) No Known Allergies, Allergies (1) Active Severity Reaction No Known Allergies None Documented Medications Current medications: (Selected) Inpatient Medications Ordered !-DuoNeb: 3 mL, NEB, QID RT, PRN: Shortness of Breath or wheezing Colace: 100 mg = 1 cap(s), Oral, BID Dulcolax Laxative: 10 mg = 1 supp, Per rectum, Daily, PRN: Constipation Humalog (Lispro) Sliding Scale Medium Dose Algorithm: Medium Dose Scale, Subcutaneous, QIDACHS Lantus: 13 unit(s) = 0.13 mL, Subcutaneous, qPM Metoprolol Tartrate: 50 mg = 1 tab(s), Oral, BID MiraLax: 17 gm = 1 packet(s), Oral, Daily, PRN: Constipation acetaminophen: 650 mg = 2 tab(s), Oral, q4hr, PRN: Pain apixaban: 5 mg = 1 tab(s), Oral, BID atorvastatin: 40 mg = 1 tab(s), Oral, Daily bacitracin zinc 500 units/g topical ointment: 1 dragan, TOP, q8hr, PRN: Other (see comment) dilTIAZem: 60 mg = 2 tab(s), Oral, q6hr ferrous sulfate: 325 mg = 1 tab(s), Oral, Daily glucagon: 1 mg = 1 vial(s), IM, Daily, PRN: Blood Glucose insulin lispro: 4 unit(s) = 0.04 mL, Subcutaneous, TIDAC levothyroxine: 50 mcg = 1 tab(s), Oral, Daily nystatin 100,000 units/g topical cream: 1 dragan, TOP, BID senna: 17.2 mg = 2 tab(s), Oral, HS tamsulosin: 0.4 mg = 1 cap(s), Oral, Daily Documented Medications Documented Calcium 600+D: 2 tab(s), Oral, Daily, 0 Refill(s) Lantus 100 units/mL subcutaneous solution: 10 unit(s), Subcutaneous, Once a day (at bedtime), 10 mL, 0 Refill(s) [place]-3 1000 mg oral capsule: 1,000 mg = 1 cap(s), Oral, Daily, 0 Refill(s) Vitamin C 1000 mg oral tablet: 1,000 mg = 1 tab(s), Oral, Daily, 30 tab(s), 0 Refill(s) apixaban 5 mg oral tablet: 5 mg = 1 tab(s), Oral, BID, 60 tab(s), 0 Refill(s) cyanocobalamin 500 mcg oral tablet: 500 mcg = 1 tab(s), Oral, Daily, 30 tab(s), 0 Refill(s) dapagliflozin 10 mg oral tablet: 10 mg = 1 tab(s), Oral, Daily, 0 Refill(s) dilTIAZem 300 mg/24 hours oral capsule, extended release: 300 mg = 1 cap(s), Oral, Daily, 30 cap(s), 0 Refill(s) ferrous sulfate (as elemental iron) 45 mg oral tablet, extended release: 45 mg = 1 tab(s), Oral, Daily, 30 tab(s), 0 Refill(s) finasteride 5 mg oral tablet: 5 mg = 1 tab(s), Oral, Daily, 30 tab(s), 0 Refill(s) furosemide 20 mg oral tablet: 40 mg = 2 tab(s), Oral, Daily, 30 tab(s), 0 Refill(s) levothyroxine 50 mcg (0.05 mg) oral tablet: 50 mcg = 1 tab(s), Oral, Daily, 30 tab(s), 0 Refill(s) lisinopril 5 mg oral tablet: 5 mg = 1 tab(s), Oral, Daily, 30 tab(s), 0 Refill(s) lovastatin 20 mg oral tablet: 20 mg = 1 tab(s), Oral, Daily, 30 tab(s), 0 Refill(s) metFORMIN 1000 mg oral tablet: 1,000 mg = 1 tab(s), Oral, BID, 60 tab(s), 0 Refill(s) metoprolol succinate 100 mg oral tablet, extended release: 100 mg = 1 tab(s), Oral, Daily, 30 tab(s), 0 Refill(s) multivitamin: 2 tab(s), Oral, Daily, 0 Refill(s) nystatin 100,000 units/g topical cream: 1 dragan, TOP, BID, 15 gm, 0 Refill(s) semaglutide 7 mg oral tablet: 7 mg = 1 tab(s), Oral, Daily, 0 Refill(s) tamsulosin 0.4 mg oral capsule: 0.4 mg = 1 cap(s), Oral, Daily, 30 cap(s), 0 Refill(s), Medications (19) Active Scheduled: (13) apixaban 5 mg tab [[facility]] 5 mg 1 tab(s), Oral, BID atorvastatin 40 mg Tab [[facility]] 40 mg 1 tab(s), Oral, Daily dilTIAZem 30 mg Tab [[facility]] 60 mg 2 tab(s), Oral, q6hr docusate sodium 100 mg Cap [[facility]] 100 mg 1 cap(s), Oral, BID ferrous sulfate [address] Tab [[facility]] 325 mg 1 tab(s), Oral, Daily insulin glargine 100 units/mL SubQ [[facility]] 13 unit(s) 0.13 mL, Subcutaneous, qPM insulin lispro (HumaLOG) 100 units/mL SubQ PEN [[facility]] 4 unit(s) 0.04 mL, Subcutaneous, TIDAC insulin lispro (HumaLOG) 100 units/mL SubQ PEN [[facility]] Medium Dose Scale, Subcutaneous, QIDACHS levothyroxine 50 mcg (0.05 mg) Tab [[facility]] 50 mcg 1 tab(s), Oral, Daily metoprolol 50 mg Tab [[facility]] 50 mg 1 tab(s), Oral, BID nystatin Top 100,000 units/g Crm [[facility]] 1 dragan, TOP, BID senna 8.6 mg Tab [[facility]] 17.2 mg 2 tab(s), Oral, HS tamsulosin 0.4 mg Oral Cap [[facility]] 0.4 mg 1 cap(s), Oral, Daily Continuous: (0) PRN: (6) acetaminophen 325 mg Tab [[facility]] 650 mg 2 tab(s), Oral, q4hr albuterol-ipratropium Inh Tammy 3 mL [[facility]] 3 mL, NEB, QID RT bacitracin zinc 500 units/g Top Oint UD [[facility]] 1 dragan, TOP, q8hr bisacodyl 10 mg Supp [[facility]] 10 mg 1 supp, Per rectum, Daily glucagon recombinant 1 mg Inj [[facility]] 1 mg 1 vial(s), IM, Daily polyethylene glycol 3350 Oral Pwdr Recon [[facility]] 17 gm 1 packet(s), Oral, Daily . Problem list: All Problems Atrial fibrillation / [id number] / Confirmed BPH (benign prostatic hyperplasia) / [id number] / Confirmed Dementia / 87887945 / Confirmed Depression / 25752461 / Confirmed HLD (hyperlipidemia) / 60017307 / Confirmed HTN (hypertension) / 8203551847 / Confirmed Iron deficiency anemia / 985570140 / Confirmed CARLOS A on CPAP / [id number] / Confirmed Peripheral neuropathy / [id number] / Confirmed T2DM (type 2 diabetes mellitus) / 142518356 / Confirmed Ureterolithiasis / 42103226 / Confirmed Venous insufficiency / 393900425 / Confirmed, Active Problems (12) Atrial fibrillation BPH (benign prostatic hyperplasia) Dementia Depression HLD (hyperlipidemia) HTN (hypertension) Iron deficiency anemia CARLOS A on CPAP Peripheral neuropathy T2DM (type 2 diabetes mellitus) Ureterolithiasis Venous insufficiency Impression and Plan #bilateral strokes, embolic #right cerebellar stroke #left MCA stroke nonverbal, expressive > receptive aphasia, apparent weakness BUE and LE daily 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 #afib apixaban restarted, and on metoprolol and dilt in short acting formulations as pt has been chewing capsules #HTN HLD period of permissive HTN has ended BP 120-150 well controlled currently can restart lisnopril then lasix as needed #CKD stage 3 baseline Cr at 1.9 to 2 - Cr at 1.4 when admitted, now 1.3, improved continuing to hold lasix, lisinopril for now. recheck BMP on Mon #DM2 HbA1C at 10, poor control ? noncompliance with medications at home Lantus increased to 13 from 10. Medium ISS with 4 units tid AC. Oral meds metformin semaglutide and dapagliflozin held BGs 150-200 on admission, 100-160 last 24 hrs, improved Monitor BG qid and adjust program as needed. # #thornton in 1st culture showed dennis f/u urine cultures negative for dennis; grew 1-9k mixed red thornton out 12/13 and PVRs WNL per nursing although non recorded. #dispo anticipate 2.5 week LOS, home with home health services (lives with supportive son) f/u PCP neuro Code Status: no CPR but ok to intubate if for reversible cause. #Potential or actual clinically significant medication issues addressed per CMS regulations: No potentially clinically significant medication issues. ADDENDUM 15 min >50% spent on counselling and coordination of care Extracted from: Title:SOAP Note: Rehab Note Author:Lilia Haney Date:12/12/22 Health Status Allergies: Allergic Reactions (All) No Known Allergies, Allergies (1) Active Severity Reaction No Known Allergies None Documented Medications Current medications: (Selected) Inpatient Medications Ordered !-DuoNeb: 3 mL, NEB, QID RT, PRN: Shortness of Breath or wheezing Colace: 100 mg = 1 cap(s), Oral, BID Dulcolax Laxative: 10 mg = 1 supp, Per rectum, Daily, PRN: Constipation Humalog (Lispro) Sliding Scale Medium Dose Algorithm: Medium Dose Scale, Subcutaneous, QIDACHS Lantus: 13 unit(s) = 0.13 mL, Subcutaneous, qPM Metoprolol Tartrate: 50 mg = 1 tab(s), Oral, BID MiraLax: 17 gm = 1 packet(s), Oral, Daily, PRN: Constipation acetaminophen: 650 mg = 2 tab(s), Oral, q4hr, PRN: Pain apixaban: 5 mg = 1 tab(s), Oral, BID atorvastatin: 40 mg = 1 tab(s), Oral, Daily bacitracin zinc 500 units/g topical ointment: 1 dragan, TOP, q8hr, PRN: Other (see comment) dilTIAZem: 60 mg = 2 tab(s), Oral, q6hr ferrous sulfate: 325 mg = 1 tab(s), Oral, Daily glucagon: 1 mg = 1 vial(s), IM, Daily, PRN: Blood Glucose insulin lispro: 4 unit(s) = 0.04 mL, Subcutaneous, TIDAC levothyroxine: 50 mcg = 1 tab(s), Oral, Daily nystatin 100,000 units/g topical cream: 1 dragan, TOP, BID senna: 17.2 mg = 2 tab(s), Oral, HS tamsulosin: 0.4 mg = 1 cap(s), Oral, Daily Documented Medications Documented Calcium 600+D: 2 tab(s), Oral, Daily, 0 Refill(s) Lantus 100 units/mL subcutaneous solution: 10 unit(s), Subcutaneous, Once a day (at bedtime), 10 mL, 0 Refill(s) [place]-3 1000 mg oral capsule: 1,000 mg = 1 cap(s), Oral, Daily, 0 Refill(s) Vitamin C 1000 mg oral tablet: 1,000 mg = 1 tab(s), Oral, Daily, 30 tab(s), 0 Refill(s) apixaban 5 mg oral tablet: 5 mg = 1 tab(s), Oral, BID, 60 tab(s), 0 Refill(s) cyanocobalamin 500 mcg oral tablet: 500 mcg = 1 tab(s), Oral, Daily, 30 tab(s), 0 Refill(s) dapagliflozin 10 mg oral tablet: 10 mg = 1 tab(s), Oral, Daily, 0 Refill(s) dilTIAZem 300 mg/24 hours oral capsule, extended release: 300 mg = 1 cap(s), Oral, Daily, 30 cap(s), 0 Refill(s) ferrous sulfate (as elemental iron) 45 mg oral tablet, extended release: 45 mg = 1 tab(s), Oral, Daily, 30 tab(s), 0 Refill(s) finasteride 5 mg oral tablet: 5 mg = 1 tab(s), Oral, Daily, 30 tab(s), 0 Refill(s) furosemide 20 mg oral tablet: 40 mg = 2 tab(s), Oral, Daily, 30 tab(s), 0 Refill(s) levothyroxine 50 mcg (0.05 mg) oral tablet: 50 mcg = 1 tab(s), Oral, Daily, 30 tab(s), 0 Refill(s) lisinopril 5 mg oral tablet: 5 mg = 1 tab(s), Oral, Daily, 30 tab(s), 0 Refill(s) lovastatin 20 mg oral tablet: 20 mg = 1 tab(s), Oral, Daily, 30 tab(s), 0 Refill(s) metFORMIN 1000 mg oral tablet: 1,000 mg = 1 tab(s), Oral, BID, 60 tab(s), 0 Refill(s) metoprolol succinate 100 mg oral tablet, extended release: 100 mg = 1 tab(s), Oral, Daily, 30 tab(s), 0 Refill(s) multivitamin: 2 tab(s), Oral, Daily, 0 Refill(s) nystatin 100,000 units/g topical cream: 1 dragan, TOP, BID, 15 gm, 0 Refill(s) semaglutide 7 mg oral tablet: 7 mg = 1 tab(s), Oral, Daily, 0 Refill(s) tamsulosin 0.4 mg oral capsule: 0.4 mg = 1 cap(s), Oral, Daily, 30 cap(s), 0 Refill(s), Medications (19) Active Scheduled: (13) apixaban 5 mg tab [[facility]] 5 mg 1 tab(s), Oral, BID atorvastatin 40 mg Tab [[facility]] 40 mg 1 tab(s), Oral, Daily dilTIAZem 30 mg Tab [[facility]] 60 mg 2 tab(s), Oral, q6hr docusate sodium 100 mg Cap [[facility]] 100 mg 1 cap(s), Oral, BID ferrous sulfate [address] Tab [[facility]] 325 mg 1 tab(s), Oral, Daily insulin glargine 100 units/mL SubQ [[facility]] 13 unit(s) 0.13 mL, Subcutaneous, qPM insulin lispro (HumaLOG) 100 units/mL SubQ PEN [[facility]] 4 unit(s) 0.04 mL, Subcutaneous, TIDAC insulin lispro (HumaLOG) 100 units/mL [facility] Medium Dose Scale, Subcutaneous, QIDACHS levothyroxine 50 mcg (0.05 mg) Tab [[facility]] 50 mcg 1 tab(s), Oral, Daily metoprolol 50 mg Tab [[facility]] 50 mg 1 tab(s), Oral, BID nystatin Top 100,000 units/g Crm [[facility]] 1 dragan, TOP, BID senna 8.6 mg Tab [[facility]] 17.2 mg 2 tab(s), Oral, HS tamsulosin 0.4 mg Oral Cap [[facility]] 0.4 mg 1 cap(s), Oral, Daily Continuous: (0) PRN: (6) acetaminophen 325 mg Tab [[facility]] 650 mg 2 tab(s), Oral, q4hr albuterol-ipratropium Inh Tammy 3 mL [[facility]] 3 mL, NEB, QID RT bacitracin zinc 500 units/g Top Oint UD [[facility]] 1 dragan, TOP, q8hr bisacodyl 10 mg Supp [[facility]] 10 mg 1 supp, Per rectum, Daily glucagon recombinant 1 mg Inj [[facility]] 1 mg 1 vial(s), IM, Daily polyethylene glycol 3350 Oral Pwdr Recon [[facility]] 17 gm 1 packet(s), Oral, Daily . Problem list: All Problems Atrial fibrillation / [id number] / Confirmed BPH (benign prostatic hyperplasia) / [id number] / Confirmed Dementia / 87169334 / Confirmed Depression / 00716031 / Confirmed HLD (hyperlipidemia) / 43818251 / Confirmed HTN (hypertension) / 0293689161 / Confirmed Iron deficiency anemia / 291639042 / Confirmed CARLOS A on CPAP / [id number] / Confirmed Peripheral neuropathy / 5694320138 / Confirmed T2DM (type 2 diabetes mellitus) / 254292487 / Confirmed Ureterolithiasis / 07045866 / Confirmed Venous insufficiency / 681098185 / Confirmed, Active Problems (12) Atrial fibrillation BPH (benign prostatic hyperplasia) Dementia Depression HLD (hyperlipidemia) HTN (hypertension) Iron deficiency anemia CARLOS A on CPAP Peripheral neuropathy T2DM (type 2 diabetes mellitus) Ureterolithiasis Venous insufficiency Impression and Plan #bilateral strokes, embolic #right cerebellar stroke #left MCA stroke nonverbal, expressive > receptive aphasia, apparent weakness BUE and LE daily 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 #afib apixaban restarted, and on metoprolol and dilt in short acting formulations as pt has been chewing capsules #HTN HLD period of permissive HTN has ended BP 120-140 well controlled currently can restart lisnopril then lasix as needed #CKD stage 3 baseline Cr at 1.9 to 2 - today Cr at 1.4, improved continuing to hold lasix, lisinopril for now. recheck BMP on Sat #DM2 HbA1C at 10, poor control ? noncompliance with medications at home Lantus increased to 13 from 10. Medium ISS with 4 units tid AC. Oral meds metformin semaglutide and dapagliflozin held BGs 150-200 on admission, 100-160 last 24 hrs, improved Monitor BG qid and adjust program as needed. # #thornton in 1st culture showed dennis f/u urine cultures negative for dennis; grew 1-9k mixed red Still has thornton. Pulled thornton today 12/12; follow PVRs next few days, cath as needed. #dispo anticipate 3 week LOS, home with home health services (lives with supportive son) f/u PCP neuro Code Status: no CPR but ok to intubate if for reversible cause. #Potential or actual clinically significant medication issues addressed per CMS regulations: No potentially clinically significant medication issues. Extracted from: Title:SOAP Note: Rehab Note Author:Lilia Haney Date:12/11/22 Health Status Allergies: Allergic Reactions (All) No Known Allergies, Allergies (1) Active Severity Reaction No Known Allergies None Documented Medications Current medications: (Selected) Inpatient Medications Ordered !-DuoNeb: 3 mL, NEB, QID RT, PRN: Shortness of Breath or wheezing Colace: 100 mg = 1 cap(s), Oral, BID Dulcolax Laxative: 10 mg = 1 supp, Per rectum, Daily, PRN: Constipation Humalog (Lispro) Sliding Scale Medium Dose Algorithm: Medium Dose Scale, Subcutaneous, QIDACHS Lantus: 13 unit(s) = 0.13 mL, Subcutaneous, qPM Metoprolol Tartrate: 50 mg = 1 tab(s), Oral, BID MiraLax: 17 gm = 1 packet(s), Oral, Daily, PRN: Constipation acetaminophen: 650 mg = 2 tab(s), Oral, q4hr, PRN: Pain apixaban: 5 mg = 1 tab(s), Oral, BID atorvastatin: 40 mg = 1 tab(s), Oral, Daily bacitracin zinc 500 units/g topical ointment: 1 dragan, TOP, q8hr, PRN: Other (see comment) dilTIAZem: 60 mg = 2 tab(s), Oral, q6hr ferrous sulfate: 325 mg = 1 tab(s), Oral, Daily glucagon: 1 mg = 1 vial(s), IM, Daily, PRN: Blood Glucose insulin lispro: 4 unit(s) = 0.04 mL, Subcutaneous, TIDAC levothyroxine: 50 mcg = 1 tab(s), Oral, Daily nystatin 100,000 units/g topical cream: 1 dragan, TOP, BID senna: 17.2 mg = 2 tab(s), Oral, HS tamsulosin: 0.4 mg = 1 cap(s), Oral, Daily Documented Medications Documented Calcium 600+D: 2 tab(s), Oral, Daily, 0 Refill(s) Lantus 100 units/mL subcutaneous solution: 10 unit(s), Subcutaneous, Once a day (at bedtime), 10 mL, 0 Refill(s) [place]-3 1000 mg oral capsule: 1,000 mg = 1 cap(s), Oral, Daily, 0 Refill(s) Vitamin C 1000 mg oral tablet: 1,000 mg = 1 tab(s), Oral, Daily, 30 tab(s), 0 Refill(s) apixaban 5 mg oral tablet: 5 mg = 1 tab(s), Oral, BID, 60 tab(s), 0 Refill(s) cyanocobalamin 500 mcg oral tablet: 500 mcg = 1 tab(s), Oral, Daily, 30 tab(s), 0 Refill(s) dapagliflozin 10 mg oral tablet: 10 mg = 1 tab(s), Oral, Daily, 0 Refill(s) dilTIAZem 300 mg/24 hours oral capsule, extended release: 300 mg = 1 cap(s), Oral, Daily, 30 cap(s), 0 Refill(s) ferrous sulfate (as elemental iron) 45 mg oral tablet, extended release: 45 mg = 1 tab(s), Oral, Daily, 30 tab(s), 0 Refill(s) finasteride 5 mg oral tablet: 5 mg = 1 tab(s), Oral, Daily, 30 tab(s), 0 Refill(s) furosemide 20 mg oral tablet: 40 mg = 2 tab(s), Oral, Daily, 30 tab(s), 0 Refill(s) levothyroxine 50 mcg (0.05 mg) oral tablet: 50 mcg = 1 tab(s), Oral, Daily, 30 tab(s), 0 Refill(s) lisinopril 5 mg oral tablet: 5 mg = 1 tab(s), Oral, Daily, 30 tab(s), 0 Refill(s) lovastatin 20 mg oral tablet: 20 mg = 1 tab(s), Oral, Daily, 30 tab(s), 0 Refill(s) metFORMIN 1000 mg oral tablet: 1,000 mg = 1 tab(s), Oral, BID, 60 tab(s), 0 Refill(s) metoprolol succinate 100 mg oral tablet, extended release: 100 mg = 1 tab(s), Oral, Daily, 30 tab(s), 0 Refill(s) multivitamin: 2 tab(s), Oral, Daily, 0 Refill(s) nystatin 100,000 units/g topical cream: 1 dragan, TOP, BID, 15 gm, 0 Refill(s) semaglutide 7 mg oral tablet: 7 mg = 1 tab(s), Oral, Daily, 0 Refill(s) tamsulosin 0.4 mg oral capsule: 0.4 mg = 1 cap(s), Oral, Daily, 30 cap(s), 0 Refill(s), Medications (19) Active Scheduled: (13) apixaban 5 mg tab [[facility]] 5 mg 1 tab(s), Oral, BID atorvastatin 40 mg Tab [[facility]] 40 mg 1 tab(s), Oral, Daily dilTIAZem 30 mg Tab [[facility]] 60 mg 2 tab(s), Oral, q6hr docusate sodium 100 mg Cap [[facility]] 100 mg 1 cap(s), Oral, BID ferrous sulfate [address] Tab [[facility]] 325 mg 1 tab(s), Oral, Daily insulin glargine 100 units/mL SubQ [[facility]] 13 unit(s) 0.13 mL, Subcutaneous, qPM insulin lispro (HumaLOG) 100 units/mL SubQ PEN [[facility]] 4 unit(s) 0.04 mL, Subcutaneous, TIDAC insulin lispro (HumaLOG) 100 units/mL SubQ PEN [[facility]] Medium Dose Scale, Subcutaneous, QIDACHS levothyroxine 50 mcg (0.05 mg) Tab [[facility]] 50 mcg 1 tab(s), Oral, Daily metoprolol 50 mg Tab [[facility]] 50 mg 1 tab(s), Oral, BID nystatin Top 100,000 units/g Crm [[facility]] 1 dragan, TOP, BID senna 8.6 mg Tab [[facility]] 17.2 mg 2 tab(s), Oral, HS tamsulosin 0.4 mg Oral Cap [[facility]] 0.4 mg 1 cap(s), Oral, Daily Continuous: (0) PRN: (6) acetaminophen 325 mg Tab [[facility]] 650 mg 2 tab(s), Oral, q4hr albuterol-ipratropium Inh Tammy 3 mL [[facility]] 3 mL, NEB, QID RT bacitracin zinc 500 units/g Top Oint UD [[facility]] 1 dragan, TOP, q8hr bisacodyl 10 mg Supp [[facility]] 10 mg 1 supp, Per rectum, Daily glucagon recombinant 1 mg Inj [[facility]] 1 mg 1 vial(s), IM, Daily polyethylene glycol 3350 Oral Pwdr Recon [[facility]] 17 gm 1 packet(s), Oral, Daily . Problem list: All Problems Atrial fibrillation / [id number] / Confirmed BPH (benign prostatic hyperplasia) / 241417687 / Confirmed Dementia / 89913059 / Confirmed Depression / 31089868 / Confirmed HLD (hyperlipidemia) / 43400333 / Confirmed HTN (hypertension) / 6984667537 / Confirmed Iron deficiency anemia / 301655188 / Confirmed CARLOS A on CPAP / [id number] / Confirmed Peripheral neuropathy / [id number] / Confirmed T2DM (type 2 diabetes mellitus) / 818668247 / Confirmed Ureterolithiasis / 27273455 / Confirmed Venous insufficiency / 406189981 / Confirmed, Active Problems (12) Atrial fibrillation BPH (benign prostatic hyperplasia) Dementia Depression HLD (hyperlipidemia) HTN (hypertension) Iron deficiency anemia CARLOS A on CPAP Peripheral neuropathy T2DM (type 2 diabetes mellitus) Ureterolithiasis Venous insufficiency Impression and Plan #bilateral strokes, embolic #right cerebellar stroke #left MCA stroke nonverbal, expressive > receptive aphasia, apparent weakness BUE and LE daily 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 #afib apixaban restarted, and on metoprolol and dilt in short acting formulations as pt has been chewing capsules #HTN HLD period of permissive HTN has ended BP 120-140 well controlled currently can restart lisnopril then lasix as needed #CKD stage 3 baseline Cr at 1.9 to 2 - today Cr at 1.4, improved continuing to hold lasix, lisinopril for now. #DM2 HbA1C at 10, poor control ? noncompliance with medications Lantus increased to 13 from 10. Medium ISS with 4 units tid AC. Oral meds metformin semaglutide and dapagliflozin held BGs 150-200 since admission Monitor BG qid and adjust program as needed. # #thornton in 1st culture showed dennis f/u urine cultures negative for dennis; grew 1-9k mixed red Still has thornton. Will plan to pull thornton tomorrow 3/ follow PVRs next few days, cath as needed. #dispo anticipate 3 week LOS, home with home health services (lives with supportive son) f/u PCP neuro Code Status: no CPR but ok to intubate if for reversible cause. #Potential or actual clinically significant medication issues addressed per CMS regulations: No potentially clinically significant medication issues. Extracted from: Title:General Rehab Admission H&P * stroke Autho r:Lilia Haney MD Date:12/10/22 History of Present Illness Mr Purvis is a 71 yo man with ?cognitive impairment, chronic afib on eliquis, T2DM, HTN HLD, CARLOS A on CPAP, BPH, fe deficiency anemia, CKD, venous insufficiency, who was found at home to be completely aphasic with weakness. Apparently he had some medication noncompliance with apixaban, per son. NIHSS was 29 on admission, although reportedly difficult exam. Transferred to [facility] and NIH was 13. He was out of window for TPA. Apixaban started at home dose 5 bid, atorvastatin started at 40. TTE showed normal EF, mod TR, mild pulmonary HTN. Telemetry showed afib. Permissive HTN during his stay x1 week, so lasix and lisinopril held. HbA1C was>10 suggesting poor control at home, noncompliance. Lantus increased from home 10 to 13, and home meds semaglutide and dapaglifozin held. Also getting ISS and meal associated insulin. Residual deficits include profound aphasia, right inattention, and weakness requiring 2 assist for transfers. He worked with PT OT and ELECTRICAL MACHINIST during his however given residual deficits, it was felt beneficial to transfer to an acute rehabilitation level of care for intensive PT OT and ELECTRICAL MACHINIST with the goal of optimizing function and eventual return home. Review of Systems Unable to obtain ROS: due to clinical condition. Constitutional: Negative. Pain assessment: Self-reports no pain. Eye Ear/Nose/Mouth/Throat: on reg diet, No dysphagia. Respiratory: No shortness of breath, No cough. Cardiovascular: h/o afib, No chest pain, No palpitations. Gastrointestinal: Constipation, No nausea, No vomiting. Genitourinary: +thornton in place, No dysuria, No urinary incontinence. Hematology/Lymphatics: Anemia, h/o Fe def anemia. Endocrine: Hyperglycemia, HbA1C 10. Musculoskeletal: No back pain, No joint pain. Integumentary: No rash, No breakdown, No skin lesion. Neurologic: Abnormal balance, Confusion, Speech problems, Weakness. Psychiatric: No anxiety, No depression. Health Status Allergies: Allergic Reactions (All) No Known Allergies, Allergies (1) Active Severity Reaction No Known Allergies None Documented Medications Current medications: (Selected) Inpatient Medications Ordered !-DuoNeb: 3 mL, NEB, QID RT, PRN: Shortness of Breath or wheezing !-DuoNeb: 3 mL, NEB, QID RT, PRN: Shortness of Breath or wheezing Colace: 100 mg = 1 cap(s), Oral, BID Dextrose 50% injection: 25 gm = 50 mL, IV Push, q15min, PRN: Blood Glucose Dulcolax Laxative: 10 mg = 1 supp, Per rectum, Daily, PRN: Constipation Humalog (Lispro) Sliding Scale Medium Dose Algorithm: Medium Dose Scale, Subcutaneous, QIDACHS Humalog (Lispro) Sliding Scale Medium Dose Algorithm: Medium Dose Scale, Subcutaneous, QIDACHS Lantus: 13 unit(s) = 0.13 mL, Subcutaneous, qPM Lantus: 13 unit(s) = 0.13 mL, Subcutaneous, qPM Metoprolol Tartrate: 50 mg = 1 tab(s), Oral, BID Metoprolol Tartrate: 50 mg = 1 tab(s), Oral, BID MiraLax: 17 gm = 1 packet(s), Oral, Daily, PRN: Constipation acetaminophen: 650 mg = 2 tab(s), Oral, q4hr, PRN: Pain acetaminophen: 650 mg = 20.3 mL, Oral, q4hr, PRN: Pain/Fever apixaban: 5 mg = 1 tab(s), Oral, BID apixaban: 5 mg = 1 tab(s), Oral, BID atorvastatin: 40 mg = 1 tab(s), Oral, Daily atorvastatin: 40 mg = 1 tab(s), Oral, Daily bacitracin zinc 500 units/g topical ointment: 1 dragan, TOP, q8hr, PRN: Other (see comment) dilTIAZem: 60 mg = 2 tab(s), Oral, q6hr dilTIAZem: 60 mg = 2 tab(s), Oral, q6hr ferrous sulfate: 325 mg = 1 tab(s), Oral, Daily ferrous sulfate: 325 mg = 1 tab(s), Oral, Daily glucagon: 1 mg = 1 vial(s), IM, Daily, PRN: Blood Glucose glucagon: 1 mg = 1 vial(s), IM, Daily, PRN: Blood Glucose insulin lispro: 4 unit(s) = 0.04 mL, Subcutaneous, TIDAC insulin lispro: 4 unit(s) = 0.04 mL, Subcutaneous, TIDAC levothyroxine: 50 mcg = 1 tab(s), Oral, Daily levothyroxine: 50 mcg = 1 tab(s), Oral, Daily nystatin 100,000 units/g topical cream: 1 dragan, TOP, BID nystatin 100,000 units/g topical cream: 1 dragan, TOP, BID senna: 17.2 mg = 2 tab(s), Oral, HS tamsulosin: 0.4 mg = 1 cap(s), Oral, Daily tamsulosin: 0.4 mg = 1 cap(s), Oral, Daily Documented Medications Documented Calcium 600+D: 2 tab(s), Oral, Daily, 0 Refill(s) Lantus 100 units/mL subcutaneous solution: 10 unit(s), Subcutaneous, Once a day (at bedtime), 10 mL, 0 Refill(s) [place]-3 1000 mg oral capsule: 1,000 mg = 1 cap(s), Oral, Daily, 0 Refill(s) Vitamin C 1000 mg oral tablet: 1,000 mg = 1 tab(s), Oral, Daily, 30 tab(s), 0 Refill(s) apixaban 5 mg oral tablet: 5 mg = 1 tab(s), Oral, BID, 60 tab(s), 0 Refill(s) cyanocobalamin 500 mcg oral tablet: 500 mcg = 1 tab(s), Oral, Daily, 30 tab(s), 0 Refill(s) dapagliflozin 10 mg oral tablet: 10 mg = 1 tab(s), Oral, Daily, 0 Refill(s) dilTIAZem 300 mg/24 hours oral capsule, extended release: 300 mg = 1 cap(s), Oral, Daily, 30 cap(s), 0 Refill(s) ferrous sulfate (as elemental iron) 45 mg oral tablet, extended release: 45 mg = 1 tab(s), Oral, Daily, 30 tab(s), 0 Refill(s) finasteride 5 mg oral tablet: 5 mg = 1 tab(s), Oral, Daily, 30 tab(s), 0 Refill(s) furosemide 20 mg oral tablet: 40 mg = 2 tab(s), Oral, Daily, 30 tab(s), 0 Refill(s) levothyroxine 50 mcg (0.05 mg) oral tablet: 50 mcg = 1 tab(s), Oral, Daily, 30 tab(s), 0 Refill(s) lisinopril 5 mg oral tablet: 5 mg = 1 tab(s), Oral, Daily, 30 tab(s), 0 Refill(s) lovastatin 20 mg oral tablet: 20 mg = 1 tab(s), Oral, Daily, 30 tab(s), 0 Refill(s) metFORMIN 1000 mg oral tablet: 1,000 mg = 1 tab(s), Oral, BID, 60 tab(s), 0 Refill(s) metoprolol succinate 100 mg oral tablet, extended release: 100 mg = 1 tab(s), Oral, Daily, 30 tab(s), 0 Refill(s) multivitamin: 2 tab(s), Oral, Daily, 0 Refill(s) nystatin 100,000 units/g topical cream: 1 dragan, TOP, BID, 15 gm, 0 Refill(s) semaglutide 7 mg oral tablet: 7 mg = 1 tab(s), Oral, Daily, 0 Refill(s) tamsulosin 0.4 mg oral capsule: 0.4 mg = 1 cap(s), Oral, Daily, 30 cap(s), 0 Refill(s), Medications (32) Active Scheduled: (24) apixaban 5 mg tab [[facility]] 5 mg 1 tab(s), Oral, BID apixaban 5 mg tab [[facility]] 5 mg 1 tab(s), Oral, BID atorvastatin 40 mg Tab [[facility]] 40 mg 1 tab(s), Oral, Daily atorvastatin 40 mg Tab [[facility]] 40 mg 1 tab(s), Oral, Daily dilTIAZem 30 mg Tab [[facility]] 60 mg 2 tab(s), Oral, q6hr dilTIAZem 30 mg Tab [[facility]] 60 mg 2 tab(s), Oral, q6hr docusate sodium 100 mg Cap [[facility]] 100 mg 1 cap(s), Oral, BID ferrous sulfate [address] Tab [[facility]] 325 mg 1 tab(s), Oral, Daily ferrous sulfate [address] Tab [[facility]] 325 mg 1 tab(s), Oral, Daily insulin glargine 100 units/mL SubQ [[facility]] 13 unit(s) 0.13 mL, Subcutaneous, qPM insulin glargine 100 units/mL SubQ [[facility]] 13 unit(s) 0.13 mL, Subcutaneous, qPM insulin lispro (HumaLOG) 100 units/mL SubQ PEN [[facility]] 4 unit(s) 0.04 mL, Subcutaneous, TIDAC insulin lispro (HumaLOG) 100 units/mL [facility] Medium Dose Scale, Subcutaneous, QIDACHS insulin lispro (HumaLOG) 100 units/mL SubQ PEN [[facility]] 4 unit(s) 0.04 mL, Subcutaneous, TIDAC insulin lispro (HumaLOG) 100 units/mL SubQ PEN [[facility]] Medium Dose Scale, Subcutaneous, QIDACHS levothyroxine 50 mcg (0.05 mg) Tab [[facility]] 50 mcg 1 tab(s), Oral, Daily levothyroxine 50 mcg (0.05 mg) Tab [[facility]] 50 mcg 1 tab(s), Oral, Daily metoprolol 50 mg Tab [[facility]] 50 mg 1 tab(s), Oral, BID metoprolol 50 mg Tab [[facility]] 50 mg 1 tab(s), Oral, BID nystatin Top 100,000 units/g Crm [[facility]] 1 dragan, TOP, BID nystatin Top 100,000 units/g Crm [[facility]] 1 dragan, TOP, BID senna 8.6 mg Tab [[facility]] 17.2 mg 2 tab(s), Oral, HS tamsulosin 0.4 mg Oral Cap [[facility]] 0.4 mg 1 cap(s), Oral, Daily tamsulosin 0.4 mg Oral Cap [[facility]] 0.4 mg 1 cap(s), Oral, Daily Continuous: (0) PRN: (8) acetaminophen 325 mg Tab [[facility]] 650 mg 2 tab(s), Oral, q4hr albuterol-ipratropium Inh Tammy 3 mL [[facility]] 3 mL, NEB, QID RT albuterol-ipratropium Inh Tammy 3 mL [[facility]] 3 mL, NEB, QID RT bacitracin zinc 500 units/g Top Oint UD [[facility]] 1 dragan, TOP, q8hr bisacodyl 10 mg Supp [[facility]] 10 mg 1 supp, Per rectum, Daily glucagon recombinant 1 mg Inj [[facility]] 1 mg 1 vial(s), IM, Daily glucagon recombinant 1 mg Inj [[facility]] 1 mg 1 vial(s), IM, Daily polyethylene glycol 3350 Oral Pwdr Recon [[facility]] 17 gm 1 packet(s), Oral, Daily . Medications (32) Active Scheduled: (24) apixaban 5 mg tab [[facility]] 5 mg 1 tab(s), Oral, BID apixaban 5 mg tab [[facility]] 5 mg 1 tab(s), Oral, BID atorvastatin 40 mg Tab [[facility]] 40 mg 1 tab(s), Oral, Daily atorvastatin 40 mg Tab [[facility]] 40 mg 1 tab(s), Oral, Daily dilTIAZem 30 mg Tab [[facility]] 60 mg 2 tab(s), Oral, q6hr dilTIAZem 30 mg Tab [[facility]] 60 mg 2 tab(s), Oral, q6hr docusate sodium 100 mg Cap [[facility]] 100 mg 1 cap(s), Oral, BID ferrous sulfate [address] Tab [[facility]] 325 mg 1 tab(s), Oral, Daily ferrous sulfate [address] Tab [[facility]] 325 mg 1 tab(s), Oral, Daily insulin glargine 100 units/mL SubQ [[facility]] 13 unit(s) 0.13 mL, Subcutaneous, qPM insulin glargine 100 units/mL SubQ [[facility]] 13 unit(s) 0.13 mL, Subcutaneous, qPM insulin lispro (HumaLOG) 100 units/mL SubQ PEN [[facility]] 4 unit(s) 0.04 mL, Subcutaneous, TIDAC insulin lispro (HumaLOG) 100 units/mL SubQ PEN [[facility]] Medium Dose Scale, Subcutaneous, QIDACHS insulin lispro (HumaLOG) 100 units/mL SubQ PEN [[facility]] 4 unit(s) 0.04 mL, Subcutaneous, TIDAC insulin lispro (HumaLOG) 100 units/mL SubQ PEN [[facility]] Medium Dose Scale, Subcutaneous, QIDACHS levothyroxine 50 mcg (0.05 mg) Tab [[facility]] 50 mcg 1 tab(s), Oral, Daily levothyroxine 50 mcg (0.05 mg) Tab [[facility]] 50 mcg 1 tab(s), Oral, Daily metoprolol 50 mg Tab [[facility]] 50 mg 1 tab(s), Oral, BID metoprolol 50 mg Tab [[facility]] 50 mg 1 tab(s), Oral, BID nystatin Top 100,000 units/g Crm [[facility]] 1 dragan, TOP, BID nystatin Top 100,000 units/g Crm [[facility]] 1 dragan, TOP, BID senna 8.6 mg Tab [[facility]] 17.2 mg 2 tab(s), Oral, HS tamsulosin 0.4 mg Oral Cap [[facility]] 0.4 mg 1 cap(s), Oral, Daily tamsulosin 0.4 mg Oral Cap [[facility]] 0.4 mg 1 cap(s), Oral, Daily Continuous: (0) PRN: (8) acetaminophen 325 mg Tab [[facility]] 650 mg 2 tab(s), Oral, q4hr albuterol-ipratropium Inh Tammy 3 mL [[facility]] 3 mL, NEB, QID RT albuterol-ipratropium Inh Tammy 3 mL [[facility]] 3 mL, NEB, QID RT bacitracin zinc 500 units/g Top Oint UD [[facility]] 1 dragan, TOP, q8hr bisacodyl 10 mg Supp [[facility]] 10 mg 1 supp, Per rectum, Daily glucagon recombinant 1 mg Inj [[facility]] 1 mg 1 vial(s), IM, Daily glucagon recombinant 1 mg Inj [[facility]] 1 mg 1 vial(s), IM, Daily polyethylene glycol 3350 Oral Pwdr Recon [[facility]] 17 gm 1 packet(s), Oral, Daily . Problem list: All Problems Atrial fibrillation / [id number] / Confirmed BPH (benign prostatic hyperplasia) / 827560118 / Confirmed Dementia / 56879357 / Confirmed Depression / 53236142 / Confirmed HLD (hyperlipidemia) / 16045752 / Confirmed HTN (hypertension) / 8955130413 / Confirmed Iron deficiency anemia / [id number] / Confirmed CARLOS A on CPAP / 055565607 / Confirmed Peripheral neuropathy / [id number] / Confirmed T2DM (type 2 diabetes mellitus) / 656643072 / Confirmed Ureterolithiasis / 16435021 / Confirmed Venous insufficiency / 442037003 / Confirmed, Active Problems (12) Atrial fibrillation BPH (benign prostatic hyperplasia) Dementia Depression HLD (hyperlipidemia) HTN (hypertension) Iron deficiency anemia CARLOS A on CPAP Peripheral neuropathy T2DM (type 2 diabetes mellitus) Ureterolithiasis Venous insufficiency Physical Examination VS/Measurements Vital Signs 12/10/2022 12:06 EST Temperature Oral 36.7 DegC Peripheral Pulse Rate 69 bpm Respiratory Rate 18 br/min Systolic Blood Pressure 103 mmHg Diastolic Blood Pressure 59 mmHg LOW Mean Arterial Pressure, Cuff 74 mmHg BP Site Left arm BP Method Automatic 12/10/2022 7:48 EST Temperature Oral 36.9 DegC Peripheral Pulse Rate 87 bpm Respiratory Rate 20 br/min Systolic Blood Pressure 121 mmHg Diastolic Blood Pressure 77 mmHg BP Site Left arm SpO2 97 % SpO2 Location Left hand BP Method Automatic 12/10/2022 5:51 EST Temperature Oral 37.1 DegC Peripheral Pulse Rate 97 bpm Respiratory Rate 16 br/min Systolic Blood Pressure 127 mmHg Diastolic Blood Pressure 67 mmHg BP Site Left arm SpO2 95 % BP Method Automatic 12/09/2022 23:43 EST Peripheral Pulse Rate 95 bpm Respiratory Rate 16 br/min Systolic Blood Pressure 121 mmHg Diastolic Blood Pressure 71 mmHg BP Site Left arm SpO2 95 % BP Method Automatic 12/09/2022 21:14 EST Temperature Oral 36.9 DegC Peripheral Pulse Rate 86 bpm Respiratory Rate 16 br/min Systolic Blood Pressure 133 mmHg Diastolic Blood Pressure 82 mmHg Mean Arterial Pressure, Cuff 99 mmHg SpO2 96 % 12/09/2022 18:26 EST Systolic Blood Pressure 145 mmHg HI Diastolic Blood Pressure 80 mmHg Mean Arterial Pressure, Cuff 102 mmHg 12/09/2022 11:50 EST Temperature Temporal Artery 36.5 DegC Peripheral Pulse Rate 63 bpm Respiratory Rate 15 br/min Systolic Blood Pressure 124 mmHg Diastolic Blood Pressure 82 mmHg BP Site Left arm SpO2 97 % BP Method Automatic 12/09/2022 4:00 EST Temperature Temporal Artery 36.6 DegC Peripheral Pulse Rate 69 bpm Respiratory Rate 16 br/min Systolic Blood Pressure 155 mmHg HI Diastolic Blood Pressure 93 mmHg HI BP Site Right arm SpO2 96 % SpO2 Location Right hand BP Method Automatic 12/09/2022 0:19 EST Peripheral Pulse Rate 73 bpm Respiratory Rate 16 br/min Systolic Blood Pressure 131 mmHg Diastolic Blood Pressure 61 mmHg BP Site Left arm SpO2 98 % SpO2 Location Right hand BP Method Automatic , No qualifying data available General: No acute distress, Well developed, Well nourished. Eye: Extraocular movements are intact, Normal conjunctiva. Respiratory: Lungs are clear to auscultation, Respirations are non-labored. Cardiovascular: Normal rate, irreg HR, +afib. Gastrointestinal: Soft, Non-tender, Non-distended, Normal bowel sounds. Integumentary: Intact, No rash. Mental status/ Cognition +exp and rec aphasia nonverbal throughout entire visit nodded yes to all questions during the entire visit 0/5 color 1/4 following simple commands, better with visual cues . Movement/ Coordination appears to have AG strength throughout but unclear given poor ability to follow commands for manual muscle testing. Psychiatric: Cooperative, Appropriate mood & affect. 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 Impairments: Fatigue. Speech/ language: Aphasia. Disabilities: Decreased: Mobility, Ability to transfer self, Ability to ambulate, Ability to dress self, Ability to feed self, Ability to bathe self, Ability to toilet self, Ability to self-care, Communication abilities, Problem-solving abilities, Safety. Limiting factors: Medical complexity. Nursing goals: Nutrition/diet: Maintain optimal caloric intake, Tolerate regular diet. Medication monitor for treatment: Effects, Adverse reactions. Bladder: Continent, Regulated with program. Bowel: Continent, Regulated with program. Skin: Promote wound healing, Prevent breakdown. Pain/Sleep: Regulate sleep cycle, Decrease pain level. Occupational therapy goals: Setup/ supervision, Equipment/DME assessment. Physical therapy goals: Setup/ supervision, Equipment/DME assessment, Home assessment. Speech Therapy goals: Setup/ supervision, Dysphagia assessment, Cognitive assessment, Language assessment. Therapeutic Recreation Goals: Leisure skills assessment, Improve social interaction with peers. Patient/Family Goals: Return to home independent, Return to home with assistance. Potential for improvement to meet goals: Good. Patient/Family Educational Needs: ADL assistance, Bowel/bladder program, Disease process education, Medication education, Safety awareness, Transfers. Estimated length of stay: 4 weeks. Disposition: Home with family. Code Status: no CPR but ok to intubate if for reversible cause. Medical Plan DVT prophylaxis: anti-embolus stockings, on apixaban for afib. Skin: pressure relief, positioning, edema management. Respiratory: pulmonary hygiene incentive spirometry. Cardiovascular: afib - apixaban restarted, and on metoprolol and dilt in short acting formulations as pt has been chewing capsules HTN HLD - can restart lisnopril then lasix as needed after period of permissive HTN has ended CKD stage 3 - baseline Cr at 1.9 to 2. Hold lasix, lsinipril for now. Neuro: embolic strokes, right cerebellar and left frontoparietal - restarted apixaban.. Endocrine: DM2 - HbA1C at 10, poor control ? noncompliance. Lantus increased to 13 from 10. Oral meds metformin semaglutide and dapagliflozin held. Medium ISS with 4 units tid AC. Monitor BG qid and adjust program as needed. Diabetic management: accuchecks, carbohydrate control, insulin, no oral agents. GI: Constipation (laxative, stool softener). : incontinence f/u dennis in urine cultures. Cultures repeated. Still has thornton. Will pull thornton next few days, follow PVRs and cath as needed. Nutrition: regular, diabetic. Fluids/ Electrolytes: encourage po foods and fluids. Pain: managed with acetaminophen. [facility] medication review: Did a complete drug regimen review identify potential clinically significant medication issues? - NO ? no issues found during review . [facility] High-Risk Drug Classes Is patient taking any medications in the following pharmacological classifications: Antipsychotic, Anticoagulant, Antibiotic, Opioid, Antiplatelet, Hypoglycemic (including insulin)? ? ? YES - Anticoagulant, Hypoglycemic (including insulin) Is there an indication noted for all medications in the drug classes noted above? ? ? YES, indication noted . Rehab Impairment Categories Impairment category/ codes table I & II Stroke: 01.3 Bilateral involvement. Post Admission Physician Evaluation: Documentation Reviewed: I have reviewed the Preadmission Screen. Functional status documented at preadmission: I agree with the patient's current functional status as documented in the preadmission screening. Risk for complications: I agree with the risk for clinical complications documented in the preadmission screening. Medical conditions: The patient's medical conditions can be managed in the rehab hospital, The plan of treatment is documented above in the history and physical. Patient participation in therapy: The patient can participate in, and will benefit from an intense therapy program at least 3 hours per day / 5 days per week. Therapies/services include:, Physical therapy, Occupational therapy, Speech language pathology, Rehabilitation Nursing, Case Management, Therapeutic Recreation, Director Voice. Functional Status 12/27/22 History of Fall in Last 3 Months [place] [facility] es Mobility Romero Slightly limited 12/22/22 ADLs Minimal assistance 12/20/22 Bathing ADL Index Requires assistance (1) Dressing ADL Index Requires assistance (1) Toileting ADL Index Requires assistance (1) Transferring Bed or Chair ADL Index Requ ires assistance (1) Continence ADL Index Requires assistance (1) 12/10/22 Recent Travel History No recent travel Family Member Travel History No recent t ravel COVID-19 Screening None Medications acetaminophen 325 mg oral tablet 650 mg = 2 tab(s), Oral, q4hr, PRN PRN Pain, 0 Refill(s) Start Date: 12/26/22 Status: Ordered apixaban 5 mg oral tablet 5 mg = 1 tab(s), Oral, BID, # 60 tab(s), 0 Refill(s) Start Date: 12/03/22 Status: Ordered Atorvastatin 40mg tablet 40 mg = 1 tab(s), Oral, Daily, # 30 tab(s), 0 Refill(s), Pharmacy: [id number], 1 tab(s) Oral Daily, 175, cm, 12/10/22 15:26:00 EST, Height/Length Dosing, 97.9, kg, 12/10/22 15:26:00 EST, WeightDosing Start Date: 12/26/22 Status: Ordered Calcium 600+D 2 tab(s), Oral, Daily, 0 Refill(s) Start Date: 12/03/22 Status: Ordered Cipro 250 mg oral tablet 250 mg = 1 tab(s), Oral, BID, # 2 tab(s), 0 Refill(s), Pharmacy: [id number], 1 tab(s) Oral BID, 175, cm, 12/10/22 15:26:00 EST, Height/Length Dosing, 97.9, kg, 12/10/22 15:26:00 EST, Weight Dosing Start Date: 12/26/22 Status: Ordered Colace 100 mg oral capsule 100 mg = 1 cap(s), Oral, BID, PRN PRN Constipation, 0 Refill(s) Start Date: 12/26/22 Status: Ordered cyanocobalamin 500 mcg oral tablet 500 mcg = 1 tab(s), Oral, Daily, # 30 tab(s), 0 Refill(s) Start Date: 12/03/22 Status: Ordered dilTIAZem 60 mg = 2 tab(s), Tab, Oral, Start date: 12/22/22 20:00:00 EDT, 12/10/22 18:00:00 EST Start Date: 12/22/22 Stop Date: 12/22/22 Status: Completed dilTIAZem 60 mg = 2 tab(s), Tab, Oral, Start date: 12/22/22 13:00:00 EDT, 12/10/22 18:00:00 EST Start Date: 12/22/22 Stop Date: 12/22/22 Status: Completed dilTIAZem 60 mg = 2 tab(s), Tab, Oral, Start date: 12/21/22 13:00:00 EDT, 12/10/22 18:00:00 EST Start Date: 12/21/22 Stop Date: 12/21/22 Status: Completed dilTIAZem 60 mg oral tablet 60 mg = 1 tab(s), Oral, BID, # 60 tab(s), 0 Refill(s), Pharmacy: [id number], 1 tab(s) Oral BID, 175, cm, 12/10/22 15:26:00 EST, Height/Length Dosing, 97.9, kg, 12/10/22 15:26:00 EST, Weight Dosing Start Date: 12/26/22 Status: Ordered ferrous sulfate (as elemental iron) 45 mg oral tablet, extended release 45 mg = 1 tab(s), Oral, Daily, # 30 tab(s), 0 Refill(s) Start Date: 12/03/22 Status: Ordered Humalog (Lispro) Sliding Scale Medium Dose Algorithm Medium Dose Scale, Injection-Insulin, Subcutaneous, Start date: 12/26/22 20:30:00 EDT, 12/10/22 14:45:00 EST Start Date: 12/26/22 Stop Date: 12/26/22 Status: Completed HumaLOG KwikPen 100 units/mL injectable solution See Instructions, 4 units tid and medium ISS as follows: 150-200 2 units, 201- 250 4u, 251-300 6u, 301-350 8u, >351 10u, # 15 mL, 0 Refill(s), Pharmacy: [id number], 4 units tid and medium ISSas follows: 150-200 2 units, 201-250 4u, 251-300 6u, 3... Start Date: 12/26/22 Status: Ordered Lantus 13 unit(s) = 0.13 mL, Subcutaneous, qPM, 0 Refill(s) Start Date: 12/26/22 Status: Ordered levothyroxine 50 mcg (0.05 mg) oral tablet 50 mcg = 1 tab(s), Oral, Daily, # 30 tab(s), 0 Refill(s) Start Date: 12/03/22 Status: Ordered metoprolol tartrate 50 mg oral tablet 50 mg = 1 tab(s), Oral, BID, # 60 tab(s), 0 Refill(s), Pharmacy: [id number], 1 tab(s) Oral BID, 175, cm, 12/10/22 15:26:00 EST, Height/Length Dosing, 97.9, kg, 12/10/22 15:26:00 EST, Weight Dosing Start Date: 12/26/22 Status: Ordered multivitamin 2 tab(s), Oral, Daily, 0 Refill(s) Start Date: 12/03/22 Status: Ordered nystatin 100,000 units/g topical cream 1 dragan, TOP, BID, # 15 gm, 0 Refill(s) Start Date: 12/03/22 Status: Ordered [place]-3 1000 mg oral capsule 1,000 mg = 1 cap(s), Oral, Daily, 0 Refill(s) Start Date: 12/03/22 Status: Ordered senna 8.6 mg oral tablet 17.2 mg = 2 tab(s), Oral, HS, PRN PRN Constipation, 0 Refill(s) Start Date: 12/26/22 Status: Ordered tamsulosin 0.4 mg oral capsule 0.4 mg = 1 cap(s), Oral, Daily, # 30 cap(s), 0 Refill(s) Start Date: 12/03/22 Status: Ordered Vitamin C 1000 mg oral tablet 1,000 mg = 1 tab(s), Oral, Daily, # 30 tab(s), 0 Refill(s) Start Date: 12/03/22 Status: Ordered Mental Status 12/27/22 Sensory Perception Romero Slightly limit ed Level of Consciousness Alert Problem List Condition Confirmation Course Effective Dates Status H ealth Status Informant Atrial fibrillation Confirmed Active BPH (benign prostatic hyperplasia) Confirmed Active Dementia Confirmed Active Depression Confirmed Active HLD (hyperlipidemia) Confirmed Active HTN (hypertension) Confirmed Active Iron deficiency anemia Confirmed Active CARLOS A on CPAP Confirmed Active Peripheral neuropathy Confirmed Active T2DM (type 2 diabetes mellitus) Confirmed Active Ureterolithiasis Confirmed Active Venous insufficiency Confirmed Active Results Laboratory List Name Date Glucose POC1 12/27/22 Blood Glucose Monitoring POC 12/27/22 Glucose POC1 12/27/22 Blood Glucose Monitoring POC 12/27/22 Glucose POC1 12/26/22 Basic Metabolic Panel DH (BMP DH) 3 Urinalysis, Culture if Indicated 12/23/22 Urine Microscopic 12/23/22 Culture Urine DH 12/23/22 Basic Metabolic Panel DH (BMP DH) 3 Basic Metabolic Panel DH (BMP DH) 3 .Hemogram DH (CBC DH) 12/17/22 .Hemogram DH (CBC DH) 12/14/22 .Hemogram DH (CBC DH) 12/11/22 Most recent to oldest [Reference Range]: 1 2 3 Anion Gap DH [5-15 mmol/L] 12 mmol/L (12/25/22 5:35 AM) 12 mmol/L (12/21/22 6:20 AM) 15 mmol/L (12/19/22 5:35 AM) Chloride Lvl DH [98-107 mmol/L] 104 mmol/L (12/25/22 5:35 AM) 105 mmol/L (12/21/22 6:20 AM) 102 mmol/L (12/19/22 5:35 AM) CO2 DH [22-31 mmol/L] 22 mmol/L (12/25/22 5:35 AM) 21 mmol/L *LOW* (12/21/22 6:20 AM) 20 mmol/L *LOW* (12/19/22 5:35 AM) Est GFR DH [>=60 mL/min/1.73 m2] 49 mL/min/1.73 m2 1 *LOW* (12/25/22 5:35 AM) 41 mL/min/1.73 m2 2 *LOW* (12/21/22 6:20 AM) 37 mL/min/1.73 m2 3 *LOW* (12/19/22 5:35 AM) Glucose Lvl DH [65-99 mg/dL] 90 mg/dL (12/25/22 5:35 AM) 102 mg/dL *HI* (12/21/22 6:20 AM) 94 mg/dL (12/19/22 5:35 AM) Potassium Lvl DH [3.5-5.0 mmol/L] 4.5 mmol/L (12/25/22 5:35 AM) 4.4 mmol/L (12/21/22 6:20 AM) 4.4 mmol/L (12/19/22 5:35 AM) Sodium Lvl DH [135-145 mmol/L] 138 mmol/L (12/25/22 5:35 AM) 138 mmol/L (12/21/22 6:20 AM) 137 mmol/L (12/19/22 5:35 AM) Urine Culture Prelim DH [facility] . Preliminary Report [] Verified: 12/25/2022 13:11 EDT Greater than 100,000 cfu/ml Escherichia coli Greater than 100,000 cfu/ml Beta Hemolytic Streptococci, Group B Susceptibility testing not routinely performed for Coagulase Negative Staphylococcus species and other Gram Positive organisms from urine. SUSCEPTIBILITY RESULTS Escherichia coli Antibiotic GISELL mcg/mL GISELL Interp Amikacin Susceptible Ampicillin/Sulbactam Susceptible Aztreonam Susceptible Cefazolin Susceptible Cefepime <=1 Susceptible Ceftazidime <=1 Susceptible Ceftriaxone Susceptible Ertapenem Susceptible Gentamicin Susceptible Levofloxacin Susceptible [f1] Meropenem <=0.25 Susceptible Nitrofurantoin Susceptible Piperacillin/Tazobactam <=4 Susceptible Tetracycline Susceptible Tobramycin Susceptible Trimethoprim/Sulfa Susceptible Result Comments f1: Levofloxacin Levofloxacin and Ciprofloxacin may not adequately treat infections in critically ill patients even when isolates test susceptible in the laboratory. Contact Infectious Disease before using in critically ill patients. Order Comments f1: Urine Culture (Culture Urine DH) Urine Culture ordered as a result of microscopic findings. *NA* (12/23/22 5:42 PM) Urine Culture DH Produced by Clinical Reporting XR . Final Report [] Verified: 12/26/2022 11:31 EDT Greater than 100,000 cfu/ml Escherichia coli Greater than 100,000 cfu/ml Beta Hemolytic Streptococci, Group B Susceptibility testing not routinely performed for Coagulase Negative Staphylococcus species and other Gram Positive organisms from urine. Preliminary Report [] Verified: 12/25/2022 13:11 EDT Greater than 100,000 cfu/ml Escherichia coli Greater than 100,000 cfu/ml Beta Hemolytic Streptococci, Group B Susceptibility testing not routinely performed for Coagulase Negative Staphylococcus species and other Gram Positive organisms from urine. SUSCEPTIBILITY RESULTS Escherichia coli Antibiotic GISELL mcg/mL GISELL Interp Amikacin Susceptible Ampicillin/Sulbactam Susceptible Aztreonam Susceptible Cefazolin Susceptible Cefepime <=1 Susceptible Ceftazidime <=1 Susceptible Ceftriaxone Susceptible Ertapenem Susceptible Gentamicin Susceptible Levofloxacin Susceptible [f1] Meropenem <=0.25 Susceptible Nitrofurantoin Susceptible Piperacillin/Tazobactam <=4 Susceptible Tetracycline Susceptible Tobramycin Susceptible Trimethoprim/Sulfa Susceptible Result Comments f1: Levofloxacin Levofloxacin and Ciprofloxacin may not adequately treat infections in critically ill patients even when isolates test susceptible in the laboratory. Contact Infectious Disease before using in critically ill patients. Order Comments f1: Urine Culture (Culture Urine DH) Urine Culture ordered as a result of microscopic findings. *NA* (12/23/22 5:42 PM) BUN DH [10-20 mg/dL] 43 mg/dL *HI* (12/25/22 5:35 AM) 50 mg/dL *HI* (12/21/22 6:20 AM) 54 mg/dL *HI* (12/19/22 5:35 AM) Calcium Lvl DH [8.5-10.5 mg/dL] 8.9 mg/dL (12/25/22 5:35 AM) 8.7 mg/dL (12/21/22 6:20 AM) 8.6 mg/dL (12/19/22 5:35 AM) Urine Culture? Yes (12/23/22 8:55 PM) Creatinine [0.80-1.50 mg/dL] 1.50 mg/dL (12/25/22 5:35 AM) 1.73 mg/dL *HI* (12/21/22 6:20 AM) 1.90 mg/dL *HI* (12/19/22 5:35 AM) UA Bacteria [None /HPF] Moderate /HPF *ABN* (12/23/22 8:55 PM) UA Bili [Negative] Negative *NA* (12/23/22 8:55 PM) UA Blood [Negative] Moderate *ABN* (12/23/22 8:55 PM) UA Color [Yellow] Light Yellow *NA* (12/23/22 8:55 PM) UA Glucose [Negative mg/dL] Negative mg/dL *NA* (12/23/22 8:55 PM) UA Ketones [Negative] Negative *NA* (12/23/22 8:55 PM) UA Leuk Est [Negative] Moderate *ABN* (12/23/22 8:55 PM) UA Nitrite [Negative] Positive *ABN* (12/23/22 8:55 PM) UA Protein [Negative] 30 *ABN* (12/23/22 8:55 PM) UA RBC [0-3 /HPF] 14 /HPF *HI* (12/23/22 8:55 PM) UA Urobilinogen [0.00-1.99 Eu/dL] 0.20 Eu/dL (12/23/22 8:55 PM) UA WBC [0-3 /HPF] >50 /HPF *HI* (12/23/22 8:55 PM) UA pH [5.0-9.0] 6.0 (12/23/22 8:55 PM) UA Spec Grav [1.002-1.030] 1.020 (12/23/22 8:55 PM) Micro? Yes (12/23/22 8:55 PM) UA Clarity [Clear] Cloudy *ABN* (12/23/22 8:55 PM) Glucose POC [65-99 mg/dL] 114 mg/dL *HI* (12/27/22 12:55 PM) 168 mg/dL *HI* (12/27/22 7:50 AM) 213 mg/dL *HI* (12/26/22 8:54 PM) Hct DH [40.5-48.5 %] 32.2 % *LOW* (12/17/22 5:45 AM) 32.7 % *LOW* (12/14/22 5:25 AM) 33.1 % *LOW* (12/11/22 6:00 AM) Hgb DH [13.7-16.5 g/dL] 10.3 g/dL *LOW* (12/17/22 5:45 AM) 10.3 g/dL *LOW* (12/14/22 5:25 AM) 10.4 g/dL *LOW* (12/11/22 6:00 AM) MCHC DH [32.0-35.7 g/dL] 32.0 g/dL (12/17/22 5:45 AM) 31.5 g/dL *LOW* (12/14/22 5:25 AM) 31.4 g/dL *LOW* (12/11/22 6:00 AM) MCH DH [27.5-32.1 pg] 27.2 pg *LOW* (12/17/22 5:45 AM) 27.1 pg *LOW* (12/14/22 5:25 AM) 26.9 pg *LOW* (12/11/22 6:00 AM) MCV DH [82.9-93.1 fL] 85.2 fL (12/17/22 5:45 AM) 86.1 fL (12/14/22 5:25 AM) 85.5 fL (12/11/22 6:00 AM) MPV DH [7.6-12.9 fL] 8.5 fL (12/17/22 5:45 AM) 8.7 fL (12/14/22 5:25 AM) 8.8 fL (12/11/22 6:00 AM) Platelet DH [145-357 x10(3)/mcL] 381 x10(3)/mcL *HI* (12/17/22 5:45 AM) 334 x10(3)/mcL (12/14/22 5:25 AM) 272 x10(3)/mcL (12/11/22 6:00 AM) RBC DH [4.58-5.54 x10(6)/mcL] 3.78 x10(6)/mcL *LOW* (12/17/22 5:45 AM) 3.80 x10(6)/mcL *LOW* (12/14/22 5:25 AM) 3.87 x10(6)/mcL *LOW* (12/11/22 6:00 AM) RDWCV DH [11.4-13.8 %] 15.8 % *HI* (12/17/22 5:45 AM) 15.9 % *HI* (12/14/22 5:25 AM) 16.3 % *HI* (12/11/22 6:00 AM) RDWSD DH [36.0-45.0 fL] 48.7 fL *HI* (12/17/22 5:45 AM) 50.3 fL *HI* (12/14/22 5:25 AM) 50.6 fL *HI* (12/11/22 6:00 AM) WBC DH [4.0-9.5 x10(3)/mcL] 5.7 x10(3)/mcL (12/17/22 5:45 AM) 7.6 x10(3)/mcL (12/14/22 5:25 AM) 9.1 x10(3)/mcL (12/11/22 6:00 AM) Blood Glucose, Capillary POC [65-99 mg/dL] 114 mg/dL *HI* (12/27/22 12:01 PM) 168 mg/dL *HI* (12/27/22 7:28 AM) 213 mg/dL *HI* (12/26/22 10:44 PM) 1Result Comment: This patient's estimated GFR was calculated using the 2020 CKD- EPI equation. The estimated GFR can vary from the measured GFR by up to 30% in the absence of rapidly changing kidney function. Assessment of the estimated GFR is not appropriate when creatinine concentrations are rapidly changing. For clinical situations in which a more precise estimate of GFR is necessary, consider alternative methods of GFR estimation such as a 24-hour urine creatinine clearance. Assignment of CKD stage 1-5 for patients with an eGFR near the transition point between stages may be based on clinical assessment of muscle mass and symptoms in addition to eGFR. 2Result Comment: This patient's estimated GFR was calculated using the 2020 CKD- EPI equation. The estimated GFR can vary from the measured GFR by up to 30% in the absence of rapidly changing kidney function. Assessment of the estimated GFR is not appropriate when creatinine concentrations are rapidly changing. For clinical situations in which a more precise estimate of GFR is necessary, consider alternative methods of GFR estimation such as a 24-hour urine creatinine clearance. Assignment of CKD stage 1-5 for patients with an eGFR near the transition point between stages may be based on clinical assessment of muscle mass and symptoms in addition to eGFR. 3Result Comment: This patient's estimated GFR was calculated using the 2020 CKD- EPI equation. The estimated GFR can vary from the measured GFR by up to 30% in the absence of rapidly changing kidney function. Assessment of the estimated GFR is not appropriate when creatinine concentrations are rapidly changing. For clinical situations in which a more precise estimate of GFR is necessary, consider alternative methods of GFR estimation such as a 24-hour urine creatinine clearance. Assignment of CKD stage 1-5 for patients with an eGFR near the transition point between stages may be based on clinical assessment of muscle mass and symptoms in addition to eGFR. Vital Signs Most recent to oldest [Reference Range]: 1 2 3 Temperature Oral [35.8-37.3 DegC] 36.4 DegC (12/27/22 8:41 AM) 35.9 DegC (12/26/22 10:00 PM) 36.8 DegC (12/26/22 7:03 AM) Temperature Oral (DegF) 97.52 DegF (12/27/22 8:41 AM) 98.24 DegF (12/26/22 7:03 AM) 97.88 DegF (12/25/22 7:30 AM) Temperature Temporal Artery [36.3-37.8 DegC] 36.6 DegC (12/20/22 8:30 AM) 36.3 DegC (12/19/22 8:00 PM) Temperature Temporal Artery (DegF) 97.88 DegF (12/20/22 8:30 AM) 97.34 DegF (12/19/22 8:00 PM) Apical Heart Rate [60-100 bpm] 76 bpm (12/22/22 8:58 PM) 84 bpm (12/22/22 2:45 PM) 61 bpm (12/21/22 2:08 PM) Peripheral Pulse Rate [60-100 bpm] 88 bpm (12/27/22 8:41 AM) 50 bpm *LOW* (12/26/22 10:00 PM) 98 bpm (12/26/22 7:03 AM) Heart Rate Monitored [60-100 bpm] 78 bpm (12/22/22 8:00 AM) Respiratory Rate [14-20 br/min] 16 br/min (12/27/22 8:41 AM) 18 br/min (12/26/22 10:00 PM) 18 br/min (12/26/22 7:03 AM) Blood Pressure [90-140/60-90 mmHg] 110/65mmHg (12/27/22 8:41 AM) 126/62mmHg (12/26/22 10:00 PM) 116/71mmHg (12/26/22 7:03 AM) Mean Arterial Pressure, Cuff [70-110 mmHg] 100 mmHg (12/25/22 7:30 AM) 102 mmHg (12/24/22 1:00 AM) 99 mmHg (12/20/22 3:00 AM) BP Site Right arm (12/27/22 8:41 AM) Left arm (12/26/22 10:00 PM) Left arm (12/26/22 7:03 AM) FIO2 21 % (12/21/22 9:55 AM) SpO2 [92-100 %] 98 % (12/27/22 8:41 AM) 90 % *LOW* (12/26/22 10:00 PM) 99 % (12/26/22 7:03 AM) SpO2 Location Left hand (12/25/22 7:30 AM) Right hand (12/22/22 8:00 AM) Right hand (12/20/22 8:30 AM) BP Method Automatic (12/26/22 10:00 PM) Automatic (12/25/22 8:00 PM) Automatic (12/25/22 7:30 AM) Height 175 cm (12/24/22 5:57 PM) 175 cm (12/22/22 12:12 PM) 175 cm (12/10/22 3:26 PM) Height/Length Measured (inches) 68.9 in (12/10/22 3:26 PM) Height/Length Estimated 175 cm (12/10/22 3:26 PM) Height/Length Dosing 175 cm (12/10/22 3:26 PM) Weight 90 kg (12/27/22 11:32 AM) 89.5 kg (12/26/22 10:00 AM) 89.4 kg (12/26/22 9:50 AM) Weight Measured (lbs) 215.832 lb (12/10/22 3:26 PM) Weight Estimated 90 kg (12/27/22 11:32 AM) 89.09 kg (12/25/22 8:43 AM) 91 kg (12/20/22 10:09 AM) Weight Dosing 97.9 kg (12/10/22 3:26 PM) BSA Measured 2.1 m2 (12/22/22 12:12 PM) 2.18 m2 (12/10/22 3:26 PM) BSA Estimated 2 m2 (12/10/22 3:26 PM) Body Mass Index Estimated 31.97 kg/m2 (12/10/22 3:26 PM) Body Mass Index 29.55 kg/m2 (12/22/22 12:12 PM) 31.97 kg/m2 (12/10/22 3:26 PM) Social History Social History Type Response Tobacco Never tobacco user T obacco Use:. Sex Hospital Discharge Instructions Patient Education 12/27/2022 10:32:52 Hospitalist Services Upon Discharge (ONUR BRADLEY) (Custom) Services Upon Discharge Patient is being discharged home with these services in place: HOME SERVICES: Home Services Discharge - Arrangements and orders for follow-up care Service Provider: [facility] Contact Phone Number: Service(s) to be Provided: Physical Therapy; Occupational Therapy; Home Health Aide; Speech Therapy; PROPERTY PORTFOLIO OFFICER(Microfiche Camera Operator) Frequency: twice per week Additional Comments: Date of the face to face encounter: 12/26/22 This visit was related to stroke for which the patient needs skilled home health services.?? My clinical findings support the need for skilled: Occupational Therapy- 2x weekly for independence with ADLs Physical Therapy- 2x weekly for strengthening, endurance, balance and functional independence Home Health Aide- 2x weekly for impaired weakness and immobility, ADL independence Speech Therapy-?? 2x weekly for profound aphasia after LMCA stroke The patient is homebound and requires considerable and taxing effort to leave their residence secondary to impaired mobility and ADLs following LMCA stroke To all home service providers, please contact the patient???s Primary Care Provider - Dr. David Massey at [facility] - with all follow up regarding your services. Reviewed and Electronically Signed By: Lilia Haney MD Date: 12/26/22 Follow Up Care 12/10/2022 14:19:28 With:[facility] Address:Unknown When: Unknown Comments:PT/OT/ELECTRICAL MACHINIST/BOARD CERTIFIED ORTHODONTIST /PROPERTY PORTFOLIO OFFICER With:Neurology Address: [facility] When: Unknown Comments:[facility] Neurology - Referral sent/Appt requested - office to call pt w/Appt With:David Massey Address: [facility] When:01/02/2023 14:10:00 Comments:Follow up wit PCPArrive by 1:50pm Discharge summary * Mya Aiken RN: PERFORM, MODIFY Event Display: Discharge Note Authored Date: [id number] Nursing Assessment VSS, assessment benign, no changes Psychosocial / Cognitive patient is non-verbal and unable to make needs known, nods head to most questions, does not use call light, flat affect, does not spontaneously engage though did say 2 words to his sons today when they arrived Mobility min assist with FWW/guard on right, able to ambulate to bathroom Pain no c/o pain, no s/s of discomfort Safety patient alarmed, not using call light- in reach at all times Medication needs / Diet pt taking pills in applesauce or pudding- crushed, good appetite at meals, covered with insulin perorder Bowel / Bladder continent/incontinent, BM yesterday Education reviewed discharge materials with 2 sons who asked appropriate questions and were very engaged/ verbalized understanding throughout, pt transferred into vehicle independently with stand by assistance, appeared eager to go home and smiling at staff bidding him farewell and good luck, sons will call if they have further questions [Electronically Signed on: 12/27/2022 13:59 EDT] Mya Aiken RN RN [Verified on: 12/27/2022 13:59 EDT] Mya Aiken RN RN * Lilia Haney MD: VERIFY, PERFORM, SIGN Event Display: Discharge Summary Authored Date: Patient: MELANIE PURVIS Age: 72 years Sex: Male : 1950 Associated Diagnoses: None Author: Lilia Haney MD History of Present Illness Mr Marybeth is a 71 yo man with MILD cognitive impairment, chronic afib on eliquis, T2DM, HTN HLD, CARLOS A on CPAP, BPH, fe deficiency anemia, CKD, venous insufficiency, who was found at home to be completely aphasic with weakness. Apparently he had some medication noncompliance with apixaban, per son.NIHSS was 29 on admission, although reportedly difficult exam. Transferred to [facility] and NIH was 13. He was out of window for TPA. Apixaban started at home dose 5 bid, atorvastatin started at 40. TTE showed normal EF, mod TR, mild pulmonary HTN. Telemetry showed afib. Permissive HTN during his stay x1 week, so lasix and lisinopril held. HbA1C was>10 suggesting poor control at home, noncompliance. Lantus increased from home 10 to 13, and home meds semaglutide and dapaglifozin held. Also gettingISS and meal associated insulin. Residual deficits include profound aphasia, right inattention, and weakness requiring 2 assist for transfers. He worked with PT OT and ELECTRICAL MACHINIST during his however given residual deficits, it was felt beneficial to transfer to an acute rehabilitation level of care for intensive PT OT and ELECTRICAL MACHINIST with the goal of optimizing function and eventual return home. Histories Past Medical History: Active Dementia (37298268) Atrial fibrillation (40861429) T2DM (type 2 diabetes mellitus) (364294921) HTN (hypertension) (2025068718) CARLOS A on CPAP (935366313) Iron deficiency anemia (688159134) Depression (81313501) BPH (benign prostatic hyperplasia) (838673419) HLD (hyperlipidemia) (02071900) Venous insufficiency (302905261) Ureterolithiasis (87044918) Peripheral neuropathy (5021262521) Procedure history: No active procedure history items have been selected or recorded. Social History Social & Psychosocial History Social History Alcohol Never Employment/School Retired Home/Environment Lives with lives with son. Nutrition/Health Regular Sexual Sexual orientation: Straight or heterosexual. Substance Abuse Never Tobacco Never tobacco user Tobacco Use:. Electronic Cigarette/Vaping Electronic Cigarette Use: Never. Psychosocial History No active psychosocial history has been recorded . Social History Social & Psychosocial History Social History Alcohol Never Employment/School Retired Home/Environment Lives with lives with son. Nutrition/Health Regular Sexual Sexual orientation: Straight or heterosexual. Substance Abuse Never Tobacco Never tobacco user Tobacco Use:. Electronic Cigarette/Vaping Electronic Cigarette Use: Never. Psychosocial History No active psychosocial history has been recorded . Results Review Results review Labs (Last four charted values) WBC 5.7 (DEC 17) 7.6 (DEC 14) 9.1 (DEC 11) Hgb L 10.3 (DEC 17) L 10.3 (DEC 14) L 10.4 (DEC 11) Hct L 32.2 (DEC 17) L 32.7 (DEC 14) L 33.1 (DEC 11) Plt H 381 (DEC 17) 334 (DEC 14) 272 (DEC 11) Na 138 (DEC 25) 138 (DEC 21) 137 (DEC 19) 137 (DEC 17) K 4.5 (DEC 25) 4.4 (DEC 21) 4.4 (DEC 19) 4.6 (DEC 17) CO2 22 (DEC 25) L 21 (DEC 21) L 20 (DEC 19) 22 (DEC 17) Cl 104 (DEC 25) 105 (DEC 21) 102 (DEC 19) 102 (DEC 17) Cr 1.50 (DEC 25) H 1.73 (DEC 21) H 1.90 (DEC 19) H 1.57 (DEC 17) BUN H 43 (DEC 25) H 50 (DEC 21) H 54 (DEC 19) H 45 (DEC 17) Glucose 90 (DEC 25) H 102 (DEC 21) 94 (DEC 19) 97 (DEC 17) Ca 8.9 (DEC 25) 8.7 (DEC 21) 8.6 (DEC 19) 8.9 (DEC 17) Health Status Allergies: Allergic Reactions (All) No Known Allergies, Allergies (1) Active Severity Reaction No Known Allergies None Documented Current medications: Home Medications (19) Active acetaminophen 325 mg oral tablet 650 mg = 2 tab(s), PRN, Oral, q4hr apixaban 5 mg oral tablet 5 mg = 1 tab(s), Oral, BID Atorvastatin 40mg tablet 40 mg = 1 tab(s), Oral, Daily Calcium 600+D 2 tab(s), Oral, Daily Cipro 250 mg oral tablet 250 mg = 1 tab(s), Oral, BID Colace 100 mg oral capsule 100 mg = 1 cap(s), PRN, Oral, BID cyanocobalamin 500 mcg oral tablet 500 mcg = 1 tab(s), Oral, Daily dilTIAZem 60 mg oral tablet 60 mg = 1 tab(s), Oral, BID ferrous sulfate (as elemental iron) 45 mg oral tablet, extended release 45 mg = 1 tab(s), Oral, Daily HumaLOG KwikPen 100 units/mL injectable solution See Instructions Lantus 13 unit(s) = 0.13 mL, Subcutaneous, qPM levothyroxine 50 mcg (0.05 mg) oral tablet 50 mcg = 1 tab(s), Oral, Daily metoprolol tartrate 50 mg oral tablet 50 mg = 1 tab(s), Oral, BID multivitamin 2 tab(s), Oral, Daily nystatin 100,000 units/g topical cream 1 dragan, TOP, BID Charleston-3 1000 mg oral capsule 1,000 mg = 1 cap(s), Oral, Daily senna 8.6 mg oral tablet 17.2 mg = 2 tab(s), PRN, Oral, HS tamsulosin 0.4 mg oral capsule 0.4 mg = 1 cap(s), Oral, Daily Vitamin C 1000 mg oral tablet 1,000 mg = 1 tab(s), Oral, Daily Problem list: All Problems Atrial fibrillation / 54001324 / Confirmed BPH (benign prostatic hyperplasia) / 968378059 / Confirmed Dementia / 07861697 / Confirmed Depression / 68458640 / Confirmed HLD (hyperlipidemia) / 59327881 / Confirmed HTN (hypertension) / 3614524079 / Confirmed Iron deficiency anemia / 114130736 / Confirmed CARLOS A on CPAP / 847230854 / Confirmed Peripheral neuropathy / 2845579717 / Confirmed T2DM (type 2 diabetes mellitus) / 046768458 / Confirmed Ureterolithiasis / 51166942 / Confirmed Venous insufficiency / 129361479 / Confirmed, Active Problems (12) Atrial fibrillation BPH (benign prostatic hyperplasia) Dementia Depression HLD (hyperlipidemia) HTN (hypertension) Iron deficiency anemia CARLOS A on CPAP Peripheral neuropathy T2DM (type 2 diabetes mellitus) Ureterolithiasis Venous insufficiency Health Maintenance Health Maintenance Pending (in the next year) OverDue Influenza Vaccine due 06/08/22 and every 1 year(s) Due Abdominal Aortic Aneursym Screening (if hx of smoking) due 12/26/22 One-time only Adult Wellness Exam due 12/26/22 and every 1 year(s) Annual Wellness Visit (Medicare) due 12/26/22 and every 1 year(s) Colorectal Cancer Screening (Colonoscopy) due 12/26/22 Variable frequency Colorectal Cancer Screening (Fecal DNA) due 12/26/22 and every 3 year(s) Colorectal Cancer Screening (Fecal Immunochemical Test) due 12/26/22 Variable frequency Colorectal Cancer Screening (Occult Blood) due 12/26/22 Variable frequency Colorectal Cancer Screening (Sigmoidoscopy) due 12/26/22 Variable frequency DM - Communication with Managing Provider due 12/26/22 and every 1 year(s) DM - Eye Exam due 12/26/22 and every 1 year(s) DM - Foot Exam due 12/26/22 and every 1 year(s) DM - Microalbumin due 12/26/22 and every 1 year(s) Depression Screening due 12/26/22 and every 1 year(s) Glaucoma Screening due 12/26/22 and every 1 year(s) HIV Screening (if sexually active) due 12/26/22 and every 1 year(s) Hepatitis C Screening due 12/26/22 One-time only Initial Preventative Physical Examination (Medicare) due 12/26/22 One-time only Lipid Disorders Screening due 12/26/22 and every 1 year(s) Prostate Cancer Screening due 12/26/22 Variable frequency STD Counseling (if sexually active) due 12/26/22 and every 1 year(s) Syphilis Screening (if sexually active) due 12/26/22 and every 1 year(s) Tobacco Use Screening due 12/26/22 and every 1 year(s) Due In Future DM - HgbA1c not due until 03/03/23 and every 3 month(s) Alcohol Use Screening not due until 12/03/23 and every 1 year(s) Body Mass Index Check not due until 12/23/23 and every 1 year(s) Satisfied (in the past 1 year) Satisfied Alcohol Use Screening on 12/03/22. Satisfied by ASHELY PARRISH RN Body Mass Index Check on 12/22/22. Satisfied by Amparo Zamarripa DM - HgbA1c on 12/04/22. Satisfied by [employer] Domain User for [id number] Fall Risk Screening on 12/26/22. Satisfied by Svetlana Zuluaga High Blood Pressure Screening on 12/26/22. Satisfied by Svetlana Zuluaga Type 2 Diabetes Mellitus Screening on 12/26/22. Satisfied by Mabel Will Hospital Course #bilateral strokes, embolic: #right cerebellar stroke #left MCA stroke Residual deficits of nonverbal, expressive > receptive aphasia, with apparent weakness BUE and LE that resolved. He worked daily with PT OT ELECTRICAL MACHINIST and by discharge requiring only supervision mobilityand ADLs. Sons have been in for caregiver training. Apixaban restarted for stroke prevention, and statin. #DVT prophylaxis Continued on apixaban for afib. #afib Apixaban restarted, and long-acting metoprolol and diltiazem formulations changed to short acting as pt was chewing capsules. Diltiazem dose reduced to 60 bid due to soft BPs <120 #HTN HLD Following period of permissive HTN, BPs remained soft 110-140 still soft off his home meds lisinopril and lasix. Weight stable 90-91 kg off lasix. #CKD stage 3 Baseline Cr at 1.9 to 2 - Cr at 1.3-1.4 when admitted, up to 1.7-1.9, and at 1.5 by time of discharge. #DM2 HbA1C at 10 on admission, indicating poor control, possibly noncompliance with medications at home.Lantus increased to 13 from 10. Medium ISS with 4 units tid AC. All oral meds (metformin semaglutide and dapagliflozin) held. BGs 100-200, reasonably well controlled. #dispo He is being discharged to home 12/27, with home health services PT OT ELECTRICAL MACHINIST RN ABEL. He lives with supportive son and caregiver training went well. Outpatient f/u is with PCP and neuro. Code Status: no CPR but ok to intubate if for reversible cause. Physical Examination VS/Measurements Vital Signs (last 24 hrs) Last Charted Temp Oral 36.8 DegC (DEC 26 07:03) Heart Rate Peripheral 98 bpm (DEC 26 07:03) Resp Rate 18 br/min (DEC 26 07:) SBP 116 mmHg (DEC 26 07:) DBP 71 mmHg (DEC 26 07:03) Weight 89.5 kg (DEC 26 10:00) Discharge Plan Instructions to patient Discharge medications: Home Medications (19) Active acetaminophen 325 mg oral tablet 650 mg = 2 tab(s), PRN, Oral, q4hr apixaban 5 mg oral tablet 5 mg = 1 tab(s), Oral, BID Atorvastatin 40mg tablet 40 mg = 1 tab(s), Oral, Daily Calcium 600+D 2 tab(s), Oral, Daily Cipro 250 mg oral tablet 250 mg = 1 tab(s), Oral, BID Colace 100 mg oral capsule 100 mg = 1 cap(s), PRN, Oral, BID cyanocobalamin 500 mcg oral tablet 500 mcg = 1 tab(s), Oral, Daily dilTIAZem 60 mg oral tablet 60 mg = 1 tab(s), Oral, BID ferrous sulfate (as elemental iron) 45 mg oral tablet, extended release 45 mg = 1 tab(s), Oral, Daily HumaLOG KwikPen 100 units/mL injectable solution See Instructions Lantus 13 unit(s) = 0.13 mL, Subcutaneous, qPM levothyroxine 50 mcg (0.05 mg) oral tablet 50 mcg = 1 tab(s), Oral, Daily metoprolol tartrate 50 mg oral tablet 50 mg = 1 tab(s), Oral, BID multivitamin 2 tab(s), Oral, Daily nystatin 100,000 units/g topical cream 1 dragan, TOP, BID Charleston-3 1000 mg oral capsule 1,000 mg = 1 cap(s), Oral, Daily senna 8.6 mg oral tablet 17.2 mg = 2 tab(s), PRN, Oral, HS tamsulosin 0.4 mg oral capsule 0.4 mg = 1 cap(s), Oral, Daily Vitamin C 1000 mg oral tablet 1,000 mg = 1 tab(s), Oral, Daily . Discharge disposition: Discharge to home. Post discharge services: occupational therapy, physical therapy, speech-language pathology, nursing, services provided via home health. #Did the facility contact and complete physician prescribed/recommended actions by midnight of the next calendar day each time potential clinically significant medication issues were identified sincethe admission? YES #CMS High-Risk Drug Classes Is patient taking any medications in the following pharmacological classifications: Antipsychotic, Anticoagulant, Antibiotic, Opioid, Antiplatelet, Hypoglycemic (including insulin)? YES?? - Anticoagulant, Antibiotic, Hypoglycemic (including insulin) Is there an indication noted for all medications in the drug classes noted above? YES, indication noted I have personally seen and examined the patient and they are ready for discharge. Discharge Summary Plan Discharge Status: improved. Discharge instructions given: to patient. Discharge disposition: discharge to home (into the care of family member, with home health care, self care). Prescriptions: continue same medications. Discharge Information Discharge Summary Information Admitted 12/10/2022 Discharged 12/27/2022 Diagnosis Principle diagnosis: stroke [Electronically Signed on: 12/26/2022 15:41 EDT] Lilia Haney MD, MD [Verified on: 12/26/2022 15:41 EDT] Lilia Haney MD, MD Discharge instructions * Mya Aiken RN: PERFORM Event Display: Discharge Instructions Authored Date: [id number] MELANIE PURVIS :1950 Age:72 years Sex:Male Visit Date:12/10/2022 Primary Care Physician: Physician, Non-Staff [facility] Discharge Instructions We would like to thank you for allowing us to assist you with your healthcare needs. The following includes patient education materials and information regarding your injury/illness. After you leave the hospital, you may get your health information including your test results, physician notes and discharge information by accessing your Patient Portal. Your Next Steps Instructions From Your Care Team Nursing Discharge Instructions ?? 1) Take medications as prescribed. If you wish to start or stop a medication, contact your primary care physician for advice. 2) Call your doctor or seek medical attention??if you have weakness or numbness of your face or oneof your limbs, difficulty or slurred speech, or change in your vision. It is important to seek medical attention as soon as possible as these symptoms could be related to another stroke. 3) Please do not drive any motorized vehicles at this time. 4) Alternate periods of activity and rest. 5) Do not consume alcoholic beverages until cleared by your neurologist. 6) Continue to monitor your blood sugar 3-4 times per day. Write down your results so that you can review them with your primary care physician at your follow-up appointment. 7) Continue to use your walker as instructed on the rehab unit and have someone with you when you are moving around. ?? Call us at with any questions after discharge. Good luck! Follow Up Appointments Follow Up with??David Massey When:??01/02/2023 02:10 PM EDT Why: Follow up wit PCP Arrive by 1:50pm Where: [facility] Follow Up with??[facility] Why: PT/OT/ELECTRICAL MACHINIST/BOARD CERTIFIED ORTHODONTIST /PROPERTY PORTFOLIO OFFICER Follow Up with??Neurology Why: [facility] Neurology - Referral sent/Appt requested - office to call pt w/Appt Where: [facility] The Following Equipment Has Been Ordered for You Home Equipment, Anticipated - Cane Medications What How Much When Instructions Next Dose New acetaminophen (acetaminophen 325 mg oral tablet) 2 tab(s) Oral Every 4 hours as needed for Pain New atorvastatin (Atorvastatin 40mg tablet) 1 tab(s) Oral Every day Pickup at [facility] New ciprofloxacin (Cipro 250 mg oral tablet) 1 tab(s) Oral 2 times a day Pickup at [facility] New docusate (Colace 100 mg oral capsule) 1 cap Oral 2 times a day as needed for Constipation New insulin lispro (HumaLOG KwikPen 100 units/ mL injectable solution) See instructions 4 units tid and medium ISS as follows: 150-200 2 units, 201-250 4u, 251-300 6u, 301-350 8u, >96642h ?? Pickup at [facility] New senna (senna 8.6 mg oral tablet) 2 tab(s) Oral Bedtime as needed for Constipation Changed dilTIAZem (dilTIAZem 60 mg oral tablet) 1 tab(s) Oral 2 times a day Pickup at [facility] Changed insulin glargine (Lantus) 13 unit(s) Subcutaneous Once a day (in the evening) Changed metoprolol (metoprolol tartrate 50 mg oral tablet) 1 tab(s) Oral 2 times a day Pickup at [facility] Unchanged apixaban (apixaban 5 mg oral tablet) 1 tab(s) Oral 2 times a day Unchanged ascorbic acid (Vitamin C 1000 mg oral tablet) 1 tab(s) Oral Every day Unchanged calcium-vitamin D (Calcium 600+D) 2 tab(s) Oral Every day Unchanged cyanocobalamin (cyanocobalamin 500 mcg oral tablet) 1 tab(s) Oral Every day Unchanged ferrous sulfate (ferrous sulfate (as elemental iron) 45 mg oral tablet, extended release) 1 tab(s) Oral Every day Unchanged levothyroxine (levothyroxine 50 mcg (0.05 mg) oral tablet) 1 tab(s) Oral Every day Unchanged multivitamin 2 tab(s) Oral Every day Unchanged nystatin topical (nystatin 100,000 units/ g topical cream) 1 Application Topical 2 times a day Unchanged omega-3 polyunsaturated fatty acids (Charleston-3 1000 mg oral capsule) 1 cap Oral Every day Unchanged tamsulosin (tamsulosin 0.4 mg oral capsule) 1 cap Oral Every day Pharmacy Information [facility] #93: [address] [place], [place] [id number] [phone] ?? What How Much When Comments Stop Taking dapagliflozin (dapagliflozin 10 mg oral tablet) 1 tab(s) Oral Every day Stop Taking finasteride (finasteride 5 mg oral tablet) 1 tab(s) Oral Every day Stop Taking furosemide (furosemide 20 mg oral tablet) 2 tab(s) Oral Every day Stop Taking lisinopril (lisinopril 5 mg oral tablet) 1 tab(s) Oral Every day Stop Taking lovastatin (lovastatin 20 mg oral tablet) 1 tab(s) Oral Every day Stop Taking metFORMIN (metFORMIN 1000 mg oral tablet) 1 tab(s) Oral 2 times a day Stop Taking semaglutide (semaglutide 7 mg oral tablet) 1 tab(s) Oral Every day Your Summary Your Care Team Admitting Physician - Lilia Haney MD Attending Physician - Lilia Haney MD Primary Care Physician - Physician, Non-Staff [facility] Your Diagnosis Atrial fibrillation 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 Atrial fibrillation BPH (benign prostatic hyperplasia) Dementia Depression HLD (hyperlipidemia) HTN (hypertension) Iron deficiency anemia CARLOS A on CPAP Peripheral neuropathy T2DM (type 2 diabetes mellitus) Ureterolithiasis Venous insufficiency Tests Performed/Pending Basic Metabolic Panel Blood Glucose Monitoring POC BMP DH CBC DH Culture Urine DH Glucose POC1 Urinalysis, Culture if Indicated Urine Microscopic Discharge Vitals Temperature??(Oral) 97.5 ??F (36.4 ??C) Heart Rate??(Peripheral) 88 Respiratory Rate?? 16 Blood Pressure?? 110/65?? Weight?? 198.45 lb (90 kg) Weight??(Estimated) 198.45 lb (90 kg) Allergies No Known Allergies Education Materials ? Services Upon Discharge ? Patient is being discharged home with these services in place: HOME SERVICES: ? Home Services Discharge - Arrangements and orders for follow-up care ? Service Provider :?? [facility] ? Contact Phone Number: ? Service(s) to be Provided: Physical Therapy; Occupational Therapy; Home Health Aide; Speech Therapy; PROPERTY PORTFOLIO OFFICER(Microfiche Camera Operator) ? Frequency: twice per week ? Additional Comments: ? Date of the face to face encounter: 12/26/22 This visit was related to stroke for which the patient needs skilled home health services.?? My clinical findings support the need for skilled: ? Occupational Therapy- 2x weekly for independence with ADLs Physical Therapy- 2x weekly for strengthening, endurance, balance and functional independence Home Health Aide- 2x weekly for impaired weakness and immobility, ADL independence Speech Therapy-?? 2x weekly for profound aphasia after LMCA stroke ? The patient is homebound and requires considerable and taxing effort to leave their residence secondary to impaired mobility and ADLs following LMCA stroke ? To all home service providers, please contact the patient???s Primary Care Provider - Dr. David Massey at [facility] - with all follow up regarding your services. Reviewed and Electronically Signed By: Lilia Haney MD Date: 12/26/22 Patient Name:MELANIE PURVIS I have received this information and my questions have been answered. Patient/Counseling Director Name: Patient/Counseling Director Signature: Relationship to Patient: Witness Name/Signature: Date: Electronically Signed on: 12/27/2022 11:56 EDT Signed by: product design manager Note * Shilpi Bhandari: PERFORM Event Display: Case Management Note Authored Date: [id number] Sent over updated notes to [facility], inquired about social work and they said just make sure it is all in the order and there should be no problem. They plan to start within 24-48 hours of discharge. Patient Education is updated and ready to be signed by Dr. Haney. Orders will be faxed over on day of discharge. * Odalis Barber: PERFORM Event Display: Case Management Note Authored Date: [id number] CM confirmed [facility] referral has been sent. CM confirmed PCP: Dr David Massey at [facility]. * Shilpi Bhandari: PERFORM Event Display: Case Management Note Authored Date: [id number] This technical writer and editor attempted to call [facility] to talk to Xenia Rose directly, once this technical writer and editor got through the system and to a product support sales representative, the product support sales representative reports that [facility] handles this and likely Xenia Rose works for them. He sent me to [employer], got through their system to a product support sales representative and she reports that his current stay is covered through the . This technical writer and editor explained that Xenia is sending request and just called today for updates on the acute bed stay, prior to his acute rehab admission. She was able to redirect this technical writer and editor back to [facility] as they handle the acute hospital stays. This technical writer and editor lost connection. This technical writer and editor has sent in requested clinical to Xenia at the fax #she provides in all of her request. This update is provided via [employer], using the [employer] fax,(see fax hx) and it is complete. This technical writer and editor is not able to reach a Xenia Rose and she is not leaving a call back number. Follow up will likely be needed tomorrow. Nurse Progress note * Marcia Cadena, RN: PERFORM Event Display: Progress Note-Nurse Authored Date: [id number] Physical Assessment: VS stable, pt smiling when this technical writer and editor talked about his d/c on 12/27/22. Skin: scab BLE Psychosocial / Cognitive: _Pt continues to be non-verbal, but smiles when talked to, forgets to usecall light when getting out of bed. Needs constant reminders. Mobility: _Pt using a walker when ambulating to the bathroom. Needs reminder to take his time when walking. Pain: Denies pain, No s/s of distress thus far. Safety: Bed alarm on at all the time.. Does not remember to us call light. Keep dim light on at night. Medication needs / Diet: Pt takes crushed pills in apple source/putting Bowel / Bladder: Incontinent/continent of bladder. Pt has been using the bathroom Working on...: Discharge goals. [Electronically Signed on: 12/27/2022 04:06 EDT] Marcia Cadena RN [Verified on: 12/27/2022 04:06 EDT] Marcia Cadena RN * Ashely Oden: PERFORM Event Display: Progress Note-Nurse Authored Date: Pt has benign assessment. Stable vital signs. Skin is intact. No issues noted. Pt continues to be unable to communicate. Slept well and long this shift. Called one time to be toileted. Continent of urine during the night. Refused one time to be toileted, indicating he did not have to go. Hs dilt given. Fingerstick at hs was 278, requiring 6 units of coverage. No issues to report. [Electronically Signed on: 12/26/2022 05:12 EDT] Ashely Oden [Verified on: 12/26/2022 05:12 EDT] Ashely Oden * Irena Trinh: PERFORM Event Display: Progress Note-Nurse Authored Date: Nursing Assessment Patient OOB, dressed in w/c at bedside during Rounding. VSS, pt denied pain - and appeared comfortable. Assessment unremarkable. Blood sugar stable not requiring any insulin. Patient participating intherapies, no concerns. No skin changes. Psychosocial / Cognitive Pt appears comfortable throughout shift, pt had sons visiting today, they participated in therapy and patient appeared happy during visit. Mobility Min assist with stand and pivot and walking in room, guard on R with FWW Pain none noted, pt appeared comfortable throughout shift. Safety Bed and chair alarms on, pt does not use call light. Non-slip footwear on while OOB bed. Medication needs / Diet Patient chews medications even when they're crushed, took in applesauce today with no issues. Pt eating full meals in DR. Bowel / Bladder Continent all day, toileting q1-2hrs. Education Needs Discharge planning for 12/27 [Electronically Signed on: 12/25/2022 18:21 EDT] Irena Trinh RN [Verified on: 12/25/2022 18:21 EDT] Irena Trinh RN Hospital Summary note * FAB JOHNSON: PERFORM, SIGN, VERIFY, SIGN, SIGN Event Display: Inpatient Patient Summary Authored Date: [address], [place] [address] Patient Information Name: MELANIE PURVIS Age: 72 Years Date of : 1950 [facility]: [id number] Arrival Date/Time: 12/10/2022 15:03:42 Discharge Date/Time: 12/27/2022 13:45:00 Reason For Visit: Stroke Allergies: No Known Allergies Diagnosis: Atrial fibrillation; Embolic stroke involving right cerebellar artery; Ischemic stroke of frontal lobe Comment: Provider Information: Admitting Physician: Lilia Haney MD Attending Physician:Lilia Haney MD Primary Care Provider:Physician, Non-Staff [facility] would like to thank you for allowing us to assist you with your healthcare needs. The following includes patient education materials and information regarding your injury/illness. Our entire staff strives to provide a very good experience for our patients andtheir families. You may receive, by mail, a survey about your experience with us. PLEASE ENSURE YOUFOLLOW-UP PER THE INSTRUCTIONS BELOW! Medication Information: It is important to always keep an active list of medications available so that you can share with other providers and manage your medications appropriately. As an additional courtesy, we are also providing you with your final active medications list that you can keep with you. acetaminophen (acetaminophen 325 mg oral tablet) 2 tab(s) Oral every 4 hours as needed Pain. apixaban (apixaban 5 mg oral tablet) 1 tab(s) Oral 2 times a day. ascorbic acid (Vitamin C 1000 mg oral tablet) 1 tab(s) Oral every day. atorvastatin (Atorvastatin 40mg tablet) 1 tab(s) Oral every day. Refills: 0. calcium-vitamin D (Calcium 600+D) 2 tab(s) Oral every day. ciprofloxacin (Cipro 250 mg oral tablet) 1 tab(s) Oral 2 times a day. Refills: 0. cyanocobalamin (cyanocobalamin 500 mcg oral tablet) 1 tab(s) Oral every day. dilTIAZem (dilTIAZem 60 mg oral tablet) 1 tab(s) Oral 2 times a day. Refills: 0. docusate (Colace 100 mg oral capsule) 1 cap Oral 2 times a day as needed Constipation. ferrous sulfate (ferrous sulfate (as elemental iron) 45 mg oral tablet, extended release) 1 tab(s) Oral every day. insulin glargine (Lantus) 13 unit(s) Subcutaneous once a day (in the evening). insulin lispro (HumaLOG KwikPen 100 units/mL injectable solution) 4 units tid and medium ISS as follows: 150-200 2 units, 201-250 4u, 251-300 6u, 301-350 8u, >351 10u. Refills: 0. levothyroxine (levothyroxine 50 mcg (0.05 mg) oral tablet) 1 tab(s) Oral every day. metoprolol (metoprolol tartrate 50 mg oral tablet) 1 tab(s) Oral 2 times a day. Refills: 0. multivitamin 2 tab(s) Oral every day. nystatin topical (nystatin 100,000 units/g topical cream) 1 Application Topical 2 times a day. omega-3 polyunsaturated fatty acids (Charleston-3 1000 mg oral capsule) 1 cap Oral every day. senna (senna 8.6 mg oral tablet) 2 tab(s) Oral Bedtime as needed Constipation. tamsulosin (tamsulosin 0.4 mg oral capsule) 1 cap Oral every day. Take only the medications listed above. Contact your doctor prior to taking any medications not on this list. MELANIE PURVIS has been given the following list of follow-up instructions, patient education materials, and medication leaflets: Follow-up Instructions: With: Address: When: [facility] Comments: PT/OT/ELECTRICAL MACHINIST/BOARD CERTIFIED ORTHODONTIST /PROPERTY PORTFOLIO OFFICER With: Address: When: Neurology [facility] Comments: [facility] Neurology - Referral sent/Appt requested - office to call pt w/Appt With: Address: When: [facility] 01/02/2023 2:10 PM Comments: Follow up wit PCP Arrive by 1:50pm Patient Education Materials: Hospitalist Services Upon Discharge (ONUR BRADLEY) (Custom) Patient Activity Level: Patient Activity Restrictions: Patient Diet: Comment: Services Upon Discharge Patient is being discharged home with these services in place: HOME SERVICES: Home Services Discharge - Arrangements and orders for follow-up care Service Provider: [facility] Contact Phone Number: Service(s) to be Provided: Physical Therapy; Occupational Therapy; Home Health Aide; Speech Therapy; PROPERTY PORTFOLIO OFFICER(Microfiche Camera Operator) Frequency: twice per week Additional Comments: Date of the face to face encounter: 12/26/22 This visit was related to stroke for which the patient needs skilled home health services.?? My clinical findings support the need for skilled: Occupational Therapy- 2x weekly for independence with ADLs Physical Therapy- 2x weekly for strengthening, endurance, balance and functional independence Home Health Aide- 2x weekly for impaired weakness and immobility, ADL independence Speech Therapy-?? 2x weekly for profound aphasia after LMCA stroke The patient is homebound and requires considerable and taxing effort to leave their residence secondary to impaired mobility and ADLs following LMCA stroke To all home service providers, please contact the patient???s Primary Care Provider - Dr. David Massey at [facility] - with all follow up regarding your services. Reviewed and Electronically Signed By: Lilia Haney MD Date: 12/26/22 Medication Information Materials: To assist you in sharing the care we have provided to you with another provider or health care organization, we have created a 'Transition of Care Summary' inclusive of referral comments, medications, clinical results, follow up appointments etc. You may find and print a copy of your 'Transition ofCare Summary' on your Patient Portal. Your [facility] Patient Portal is located at [email or web address] If you have not yet signed up for a [facility] Patient Portal account you may request access by going to the [facility]'s website at [email or web address] and clicking on the blue oval on the left hand side of the page that says 'Sign Up for [facility] Patient Portal'. Your 'Summary of Care' will be waiting for you once your Portal account is created. I MELANIE PURVIS , have received the following patient education materials/instructions and have verbalized understanding: Date: 12/27/2022 14:09:11 Patient Signature History and physical note * Lilia Haney MD: PERFORM Event Display: History and Physical Authored Date: [id number] Patient: MELANIE PURVIS Age: 71 years Sex: Male : 1950 Associated Diagnoses: None Author: Lilia Haney MD Basic Information Visit type: New patient evaluation. Source of history: Self, records. Chief Complaint bilateral embolic strokes History of Present Illness Mr Purvis is a 71 yo man with ?cognitive impairment, chronic afib on eliquis, T2DM, HTN HLD, CARLOS A on CPAP, BPH, fe deficiency anemia, CKD, venous insufficiency, who was found at home to be completely aphasic with weakness. Apparently he had some medication noncompliance with apixaban, per son. NIHSS was 29 on admission, although reportedly difficult exam. Transferred to [facility] and NIH was 13. He was out of window for TPA. Apixaban started at home dose 5 bid, atorvastatin started at 40. TTE showed normal EF, mod TR, mild pulmonary HTN. Telemetry showed afib. Permissive HTN during his stay x1 week, so lasix and lisinopril held. HbA1C was>10 suggesting poor control at home, noncompliance. Lantus increased from home 10 to 13, and home meds semaglutide and dapaglifozin held. Also getting ISSand meal associated insulin. Residual deficits include profound aphasia, right inattention, and weakness requiring 2 assist for transfers. He worked with PT OT and ELECTRICAL MACHINIST during his however given residual deficits, it was felt beneficial to transfer to an acute rehabilitation level of care for intensive PT OT and ELECTRICAL MACHINIST with the goal of optimizing function and eventual return home. Review of Systems Unable to obtain ROS: due to clinical condition. Constitutional: Negative. Pain assessment: Self-reports no pain. Eye Ear/Nose/Mouth/Throat: on reg diet, No dysphagia. Respiratory: No shortness of breath, No cough. Cardiovascular: h/o afib, No chest pain, No palpitations. Gastrointestinal: Constipation, No nausea, No vomiting. Genitourinary: +thornton in place, No dysuria, No urinary incontinence. Hematology/Lymphatics: Anemia, h/o Fe def anemia. Endocrine: Hyperglycemia, HbA1C 10. Musculoskeletal: No back pain, No joint pain. Integumentary: No rash, No breakdown, No skin lesion. Neurologic: Abnormal balance, Confusion, Speech problems, Weakness. Psychiatric: No anxiety, No depression. Health Status Allergies: Allergic Reactions (All) No Known Allergies, Allergies (1) Active Severity Reaction No Known Allergies None Documented Medications Current medications: (Selected) Inpatient Medications Ordered !-DuoNeb: 3 mL, NEB, QID RT, PRN: Shortness of Breath or wheezing !-DuoNeb: 3 mL, NEB, QID RT, PRN: Shortness of Breath or wheezing Colace: 100 mg = 1 cap(s), Oral, BID Dextrose 50% injection: 25 gm = 50 mL, IV Push, q15min, PRN: Blood Glucose Dulcolax Laxative: 10 mg = 1 supp, Per rectum, Daily, PRN: Constipation Humalog (Lispro) Sliding Scale Medium Dose Algorithm: Medium Dose Scale, Subcutaneous, QIDACHS Humalog (Lispro) Sliding Scale Medium Dose Algorithm: Medium Dose Scale, Subcutaneous, QIDACHS Lantus: 13 unit(s) = 0.13 mL, Subcutaneous, qPM Lantus: 13 unit(s) = 0.13 mL, Subcutaneous, qPM Metoprolol Tartrate: 50 mg = 1 tab(s), Oral, BID Metoprolol Tartrate: 50 mg = 1 tab(s), Oral, BID MiraLax: 17 gm = 1 packet(s), Oral, Daily, PRN: Constipation acetaminophen: 650 mg = 2 tab(s), Oral, q4hr, PRN: Pain acetaminophen: 650 mg = 20.3 mL, Oral, q4hr, PRN: Pain/Fever apixaban: 5 mg = 1 tab(s), Oral, BID apixaban: 5 mg = 1 tab(s), Oral, BID atorvastatin: 40 mg = 1 tab(s), Oral, Daily atorvastatin: 40 mg = 1 tab(s), Oral, Daily bacitracin zinc 500 units/g topical ointment: 1 dragan, TOP, q8hr, PRN: Other (see comment) dilTIAZem: 60 mg = 2 tab(s), Oral, q6hr dilTIAZem: 60 mg = 2 tab(s), Oral, q6hr ferrous sulfate: 325 mg = 1 tab(s), Oral, Daily ferrous sulfate: 325 mg = 1 tab(s), Oral, Daily glucagon: 1 mg = 1 vial(s), IM, Daily, PRN: Blood Glucose glucagon: 1 mg = 1 vial(s), IM, Daily, PRN: Blood Glucose insulin lispro: 4 unit(s) = 0.04 mL, Subcutaneous, TIDAC insulin lispro: 4 unit(s) = 0.04 mL, Subcutaneous, TIDAC levothyroxine: 50 mcg = 1 tab(s), Oral, Daily levothyroxine: 50 mcg = 1 tab(s), Oral, Daily nystatin 100,000 units/g topical cream: 1 dragan, TOP, BID nystatin 100,000 units/g topical cream: 1 dragan, TOP, BID senna: 17.2 mg = 2 tab(s), Oral, HS tamsulosin: 0.4 mg = 1 cap(s), Oral, Daily tamsulosin: 0.4 mg = 1 cap(s), Oral, Daily Documented Medications Documented Calcium 600+D: 2 tab(s), Oral, Daily, 0 Refill(s) Lantus 100 units/mL subcutaneous solution: 10 unit(s), Subcutaneous, Once a day (at bedtime), 10 mL, 0 Refill(s) Charleston-3 1000 mg oral capsule: 1,000 mg = 1 cap(s), Oral, Daily, 0 Refill(s) Vitamin C 1000 mg oral tablet: 1,000 mg = 1 tab(s), Oral, Daily, 30 tab(s), 0 Refill(s) apixaban 5 mg oral tablet: 5 mg = 1 tab(s), Oral, BID, 60 tab(s), 0 Refill(s) cyanocobalamin 500 mcg oral tablet: 500 mcg = 1 tab(s), Oral, Daily, 30 tab(s), 0 Refill(s) dapagliflozin 10 mg oral tablet: 10 mg = 1 tab(s), Oral, Daily, 0 Refill(s) dilTIAZem 300 mg/24 hours oral capsule, extended release: 300 mg = 1 cap(s), Oral, Daily, 30 cap(s), 0 Refill(s) ferrous sulfate (as elemental iron) 45 mg oral tablet, extended release: 45 mg = 1 tab(s), Oral, Daily, 30 tab(s), 0 Refill(s) finasteride 5 mg oral tablet: 5 mg = 1 tab(s), Oral, Daily, 30 tab(s), 0 Refill(s) furosemide 20 mg oral tablet: 40 mg = 2 tab(s), Oral, Daily, 30 tab(s), 0 Refill(s) levothyroxine 50 mcg (0.05 mg) oral tablet: 50 mcg = 1 tab(s), Oral, Daily, 30 tab(s), 0 Refill(s) lisinopril 5 mg oral tablet: 5 mg = 1 tab(s), Oral, Daily, 30 tab(s), 0 Refill(s) lovastatin 20 mg oral tablet: 20 mg = 1 tab(s), Oral, Daily, 30 tab(s), 0 Refill(s) metFORMIN 1000 mg oral tablet: 1,000 mg = 1 tab(s), Oral, BID, 60 tab(s), 0 Refill(s) metoprolol succinate 100 mg oral tablet, extended release: 100 mg = 1 tab(s), Oral, Daily, 30 tab(s), 0 Refill(s) multivitamin: 2 tab(s), Oral, Daily, 0 Refill(s) nystatin 100,000 units/g topical cream: 1 dragan, TOP, BID, 15 gm, 0 Refill(s) semaglutide 7 mg oral tablet: 7 mg = 1 tab(s), Oral, Daily, 0 Refill(s) tamsulosin 0.4 mg oral capsule: 0.4 mg = 1 cap(s), Oral, Daily, 30 cap(s), 0 Refill(s), Medications (32) Active Scheduled: (24) apixaban 5 mg tab [[facility]] 5 mg 1 tab(s), Oral, BID apixaban 5 mg tab [[facility]] 5 mg 1 tab(s), Oral, BID atorvastatin 40 mg Tab [[facility]] 40 mg 1 tab(s), Oral, Daily atorvastatin 40 mg Tab [[facility]] 40 mg 1 tab(s), Oral, Daily dilTIAZem 30 mg Tab [[facility]] 60 mg 2 tab(s), Oral, q6hr dilTIAZem 30 mg Tab [[facility]] 60 mg 2 tab(s), Oral, q6hr docusate sodium 100 mg Cap [[facility]] 100 mg 1 cap(s), Oral, BID ferrous sulfate [address] Tab [[facility]] 325 mg 1 tab(s), Oral, Daily ferrous sulfate [address] Tab [[facility]] 325 mg 1 tab(s), Oral, Daily insulin glargine 100 units/mL SubQ [[facility]] 13 unit(s) 0.13 mL, Subcutaneous, qPM insulin glargine 100 units/mL SubQ [[facility]] 13 unit(s) 0.13 mL, Subcutaneous, qPM insulin lispro (HumaLOG) 100 units/mL SubQ PEN [[facility]] 4 unit(s) 0.04 mL, Subcutaneous, TIDAC insulin lispro (HumaLOG) 100 units/mL SubQ PEN [[facility]] Medium Dose Scale, Subcutaneous, QIDACHS insulin lispro (HumaLOG) 100 units/mL SubQ PEN [[facility]] 4 unit(s) 0.04 mL, Subcutaneous, TIDAC insulin lispro (HumaLOG) 100 units/mL SubQ PEN [[facility]] Medium Dose Scale, Subcutaneous, QIDACHS levothyroxine 50 mcg (0.05 mg) Tab [[facility]] 50 mcg 1 tab(s), Oral, Daily levothyroxine 50 mcg (0.05 mg) Tab [[facility]] 50 mcg 1 tab(s), Oral, Daily metoprolol 50 mg Tab [[facility]] 50 mg 1 tab(s), Oral, BID metoprolol 50 mg Tab [[facility]] 50 mg 1 tab(s), Oral, BID nystatin Top 100,000 units/g Crm [[facility]] 1 dragan, TOP, BID nystatin Top 100,000 units/g Crm [[facility]] 1 dragan, TOP, BID senna 8.6 mg Tab [[facility]] 17.2 mg 2 tab(s), Oral, HS tamsulosin 0.4 mg Oral Cap [[facility]] 0.4 mg 1 cap(s), Oral, Daily tamsulosin 0.4 mg Oral Cap [[facility]] 0.4 mg 1 cap(s), Oral, Daily Continuous: (0) PRN: (8) acetaminophen 325 mg Tab [[facility]] 650 mg 2 tab(s), Oral, q4hr albuterol-ipratropium Inh Tammy 3 mL [[facility]] 3 mL, NEB, QID RT albuterol-ipratropium Inh Tammy 3 mL [[facility]] 3 mL, NEB, QID RT bacitracin zinc 500 units/g Top Oint UD [[facility]] 1 dragan, TOP, q8hr bisacodyl 10 mg Supp [[facility]] 10 mg 1 supp, Per rectum, Daily glucagon recombinant 1 mg Inj [[facility]] 1 mg 1 vial(s), IM, Daily glucagon recombinant 1 mg Inj [[facility]] 1 mg 1 vial(s), IM, Daily polyethylene glycol 3350 Oral Pwdr Recon [[facility]] 17 gm 1 packet(s), Oral, Daily . Medications (32) Active Scheduled: (24) apixaban 5 mg tab [[facility]] 5 mg 1 tab(s), Oral, BID apixaban 5 mg tab [[facility]] 5 mg 1 tab(s), Oral, BID atorvastatin 40 mg Tab [[facility]] 40 mg 1 tab(s), Oral, Daily atorvastatin 40 mg Tab [[facility]] 40 mg 1 tab(s), Oral, Daily dilTIAZem 30 mg Tab [[facility]] 60 mg 2 tab(s), Oral, q6hr dilTIAZem 30 mg Tab [[facility]] 60 mg 2 tab(s), Oral, q6hr docusate sodium 100 mg Cap [[facility]] 100 mg 1 cap(s), Oral, BID ferrous sulfate [address] Tab [[facility]] 325 mg 1 tab(s), Oral, Daily ferrous sulfate [address] Tab [[facility]] 325 mg 1 tab(s), Oral, Daily insulin glargine 100 units/mL SubQ [[facility]] 13 unit(s) 0.13 mL, Subcutaneous, qPM insulin glargine 100 units/mL SubQ [[facility]] 13 unit(s) 0.13 mL, Subcutaneous, qPM insulin lispro (HumaLOG) 100 units/mL [facility]Q [facility]EN [facility] 4 unit(s) 0.04 mL, Subcutaneous, TIDAC insulin lispro (HumaLOG) 100 units/mL SubQ PEN [[facility]] Medium Dose Scale, Subcutaneous, QIDACHS insulin lispro (HumaLOG) 100 units/mL [facility]Q PEN [facility]] 4 unit(s) 0.04 mL, Subcutaneous, TIDAC insulin lispro (HumaLOG) 100 units/mL SubQ PEN [[facility]] Medium Dose Scale, Subcutaneous, QIDACHS levothyroxine 50 mcg (0.05 mg) Tab [[facility]] 50 mcg 1 tab(s), Oral, Daily levothyroxine 50 mcg (0.05 mg) Tab [[facility]] 50 mcg 1 tab(s), Oral, Daily metoprolol 50 mg Tab [[facility]] 50 mg 1 tab(s), Oral, BID metoprolol 50 mg Tab [[facility]] 50 mg 1 tab(s), Oral, BID nystatin Top 100,000 units/g Crm [[facility]] 1 dragan, TOP, BID nystatin Top 100,000 units/g Crm [[facility]] 1 dragan, TOP, BID senna 8.6 mg Tab [[facility]] 17.2 mg 2 tab(s), Oral, HS tamsulosin 0.4 mg Oral Cap [[facility]] 0.4 mg 1 cap(s), Oral, Daily tamsulosin 0.4 mg Oral Cap [[facility]] 0.4 mg 1 cap(s), Oral, Daily Continuous: (0) PRN: (8) acetaminophen 325 mg Tab [[facility]] 650 mg 2 tab(s), Oral, q4hr albuterol-ipratropium Inh Tammy 3 mL [[facility]] 3 mL, NEB, QID RT albuterol-ipratropium Inh Tammy 3 mL [[facility]] 3 mL, NEB, QID RT bacitracin zinc 500 units/g Top Oint UD [[facility]] 1 dragan, TOP, q8hr bisacodyl 10 mg Supp [[facility]] 10 mg 1 supp, Per rectum, Daily glucagon recombinant 1 mg Inj [[facility]] 1 mg 1 vial(s), IM, Daily glucagon recombinant 1 mg Inj [[facility]] 1 mg 1 vial(s), IM, Daily polyethylene glycol 3350 Oral Pwdr Recon [[facility]] 17 gm 1 packet(s), Oral, Daily . Problem list: All Problems Atrial fibrillation / 81955968 / Confirmed BPH (benign prostatic hyperplasia) / 952543852 / Confirmed Dementia / 56800519 / Confirmed Depression / 29986261 / Confirmed HLD (hyperlipidemia) / 85773079 / Confirmed HTN (hypertension) / 6067524258 / Confirmed Iron deficiency anemia / 728895581 / Confirmed CARLOS A on CPAP / 924729642 / Confirmed Peripheral neuropathy / 2459844239 / Confirmed T2DM (type 2 diabetes mellitus) / 129238765 / Confirmed Ureterolithiasis / 50614039 / Confirmed Venous insufficiency / 292495865 / Confirmed, Active Problems (12) Atrial fibrillation BPH (benign prostatic hyperplasia) Dementia Depression HLD (hyperlipidemia) HTN (hypertension) Iron deficiency anemia CARLOS A on CPAP Peripheral neuropathy T2DM (type 2 diabetes mellitus) Ureterolithiasis Venous insufficiency Histories Past Medical History: Active Dementia (19183335) Atrial fibrillation (39825393) T2DM (type 2 diabetes mellitus) (760352759) HTN (hypertension) (1339846616) CARLOS A on CPAP (967001893) Iron deficiency anemia (854014848) Depression (49651847) BPH (benign prostatic hyperplasia) (390357895) HLD (hyperlipidemia) (93650593) Venous insufficiency (170233147) Ureterolithiasis (42106465) Peripheral neuropathy (2240869362) Family History: No family history items have been selected or recorded., unable to obtain from pt due to aphasia and nonverbal Procedure history: No active procedure history items have been selected or recorded. Social History Social & Psychosocial History Social History Alcohol Never Employment/School Retired Home/Environment Lives with lives with son. Nutrition/Health Regular Sexual Sexual orientation: Straight or heterosexual. Substance Abuse Never Tobacco Never tobacco user Tobacco Use:. Electronic Cigarette/Vaping Electronic Cigarette Use: Never. Psychosocial History No active psychosocial history has been recorded . Family/ Social situation: Lives with son who is his caregiver. Unable to obtain further info due toap[place]sia and nonverbal. Physical Examination VS/Measurements Vital Signs 12/10/2022 12:06 EST Temperature Oral 36.7 DegC Peripheral Pulse Rate 69 bpm Respiratory Rate 18 br/min Systolic Blood Pressure 103 mmHg Diastolic Blood Pressure 59 mmHg LOW Mean Arterial Pressure, Cuff 74 mmHg BP Site Left arm BP Method Automatic 12/10/2022 7:48 EST Temperature Oral 36.9 DegC Peripheral Pulse Rate 87 bpm Respiratory Rate 20 br/min Systolic Blood Pressure 121 mmHg Diastolic Blood Pressure 77 mmHg BP Site Left arm SpO2 97 % SpO2 Location Left hand BP Method Automatic 12/10/2022 5:51 EST Temperature Oral 37.1 DegC Peripheral Pulse Rate 97 bpm Respiratory Rate 16 br/min Systolic Blood Pressure 127 mmHg Diastolic Blood Pressure 67 mmHg BP Site Left arm SpO2 95 % BP Method Automatic 12/09/2022 23:43 EST Peripheral Pulse Rate 95 bpm Respiratory Rate 16 br/min Systolic Blood Pressure 121 mmHg Diastolic Blood Pressure 71 mmHg BP Site Left arm SpO2 95 % BP Method Automatic 12/09/2022 21:14 EST Temperature Oral 36.9 DegC Peripheral Pulse Rate 86 bpm Respiratory Rate 16 br/min Systolic Blood Pressure 133 mmHg Diastolic Blood Pressure 82 mmHg Mean Arterial Pressure, Cuff 99 mmHg SpO2 96 % 12/09/2022 18:26 EST Systolic Blood Pressure 145 mmHg HI Diastolic Blood Pressure 80 mmHg Mean Arterial Pressure, Cuff 102 mmHg 12/09/2022 11:50 EST Temperature Temporal Artery 36.5 DegC Peripheral Pulse Rate 63 bpm Respiratory Rate 15 br/min Systolic Blood Pressure 124 mmHg Diastolic Blood Pressure 82 mmHg BP Site Left arm SpO2 97 % BP Method Automatic 12/09/2022 4:00 EST Temperature Temporal Artery 36.6 DegC Peripheral Pulse Rate 69 bpm Respiratory Rate 16 br/min Systolic Blood Pressure 155 mmHg HI Diastolic Blood Pressure 93 mmHg HI BP Site Right arm SpO2 96 % SpO2 Location Right hand BP Method Automatic 12/09/2022 0:19 EST Peripheral Pulse Rate 73 bpm Respiratory Rate 16 br/min Systolic Blood Pressure 131 mmHg Diastolic Blood Pressure 61 mmHg BP Site Left arm SpO2 98 % SpO2 Location Right hand BP Method Automatic , No qualifying data available General: No acute distress, Well developed, Well nourished. Eye: Extraocular movements are intact, Normal conjunctiva. Respiratory: Lungs are clear to auscultation, Respirations are non-labored. Cardiovascular: Normal rate, irreg HR, +afib. Gastrointestinal: Soft, Non-tender, Non-distended, Normal bowel sounds. Integumentary: Intact, No rash. Mental status/ Cognition +exp and rec aphasia nonverbal throughout entire visit nodded yes to all questions during the entire visit 0/5 color 1/4 following simple commands, better with visual cues . Movement/ Coordination appears to have AG strength throughout but unclear given poor ability to follow commands for manualmuscle testing. Psychiatric: Cooperative, Appropriate mood & affect. Review / Management Results review: No qualifying data available , Lab results 12/10/2022 14:51 EST Glucose POC 276 mg/dL HI 12/10/2022 11:19 EST Blood Glucose, Capillary POC 219 mg/dL HI 12/10/2022 11:04 EST Glucose POC 219 mg/dL HI 12/10/2022 7:31 EST Blood Glucose, Capillary POC 163 mg/dL HI 12/10/2022 7:25 EST Glucose POC 163 mg/dL HI 12/09/2022 19:43 EST Blood Glucose, Capillary POC 192 mg/dL HI 12/09/2022 19:37 EST Glucose POC 192 mg/dL HI 12/09/2022 16:47 EST Glucose POC 156 mg/dL ND Blood Glucose, Capillary POC 156 mg/dL ND 12/09/2022 11:01 EST Glucose POC 158 mg/dL ND 12/09/2022 10:59 EST Blood Glucose, Capillary POC 158 mg/dL ND 12/09/2022 6:51 EST Glucose POC 126 mg/dL ND 12/09/2022 6:50 EST Blood Glucose, Capillary POC 126 mg/dL ND . 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 Impairments: Fatigue. Speech/ language: Aphasia. Disabilities: Decreased: Mobility, Ability to transfer self, Ability to ambulate, Ability to dress self, Ability to feed self, Ability to bathe self, Ability to toilet self, Ability to self-care, Communication abilities, Problem- solving abilities, Safety. Limiting factors: Medical complexity. Nursing goals: Nutrition/diet: Maintain optimal caloric intake, Tolerate regular diet. Medication monitor for treatment: Effects, Adverse reactions. Bladder: Continent, Regulated with program. Bowel: Continent, Regulated with program. Skin: Promote wound healing, Prevent breakdown. Pain/Sleep: Regulate sleep cycle, Decrease pain level. Occupational therapy goals: Setup/ supervision, Equipment/DME assessment. Physical therapy goals: Setup/ supervision, Equipment/DME assessment, Home assessment. Speech Therapy goals: Setup/ supervision, Dysphagia assessment, Cognitive assessment, Language assessment. Therapeutic Recreation Goals: Leisure skills assessment, Improve social interaction with peers. Patient/Family Goals: Return to home independent, Return to home with assistance. Potential for improvement to meet goals: Good. Patient/Family Educational Needs: ADL assistance, Bowel/bladder program, Disease process education,Medication education, Safety awareness, Transfers. Estimated length of stay: 4 weeks. Disposition: Home with family. Code Status: no CPR but ok to intubate if for reversible cause. Medical Plan DVT prophylaxis: anti-embolus stockings, on apixaban for afib. Skin: pressure relief, positioning, edema management. Respiratory: pulmonary hygiene incentive spirometry. Cardiovascular: afib - apixaban restarted, and on metoprolol and dilt in short acting formulations as pt has been chewing capsules HTN HLD - can restart lisnopril then lasix as needed after period of permissive HTN has ended CKD stage 3 - baseline Cr at 1.9 to 2. Hold lasix, lsinipril for now. Neuro: embolic strokes, right cerebellar and left frontoparietal - restarted apixaban.. Endocrine: DM2 - HbA1C at 10, poor control ? noncompliance. Lantus increased to 13 from 10. Oral meds metformin semaglutide and dapagliflozin held. Medium ISS with 4 units tid AC. Monitor BG qid and adjust program as needed. Diabetic management: accuchecks, carbohydrate control, insulin, no oral agents. GI: Constipation (laxative, stool softener). : incontinence f/u dennis in urine cultures. Cultures repeated. Still has thornton. Will pull thornton next few days, follow PVRs and cath as needed. Nutrition: regular, diabetic. Fluids/ Electrolytes: encourage po foods and fluids. Pain: managed with acetaminophen. [facility] medication review: Did a complete drug regimen review identify potential clinically significant medication issues? - NO ??? no issues found during review . [facility] High-Risk Drug Classes Is patient taking any medications in the following pharmacological classifications: Antipsychotic, Anticoagulant, Antibiotic, Opioid, Antiplatelet, Hypoglycemic (including insulin)? YES - Anticoagulant, Hypoglycemic (including insulin) Is there an indication noted for all medications in the drug classes noted above? YES, indication noted . Rehab Impairment Categories Impairment category/ codes table I & II Stroke: 01.3 Bilateral involvement. Post Admission Physician Evaluation: Documentation Reviewed: I have reviewed the Preadmission Screen. Functional status documented at preadmission: I agree with the patient's current functional status as documented in the preadmission screening. Risk for complications: I agree with the risk for clinical complications documented in the preadmission screening. Medical conditions: The patient's medical conditions can be managed in the rehab hospital, The planof treatment is documented above in the history and physical. Patient participation in therapy: The patient can participate in, and will benefit from an intense therapy program at least 3 hours per day / 5 days per week. Therapies/services include:, Physical therapy, Occupational therapy, Speech language pathology, Rehabilitation Nursing, Case Management, Therapeutic Recreation, Director Voice. [Electronically Signed on: 12/10/2022 15:45 EST] Lilia Haney MD, MD [Electronically Signed on: 12/11/2022 12:53 EST] Lilia Haney MD, MD [Verified on: 12/10/2022 15:45 EST] Lilia Haney MD, MD Progress note * Lilia Haney MD: PERFORM, SIGN, VERIFY Event Display: Progress Note-Physician Authored Date: Patient: MELANIE PURVIS Age: 72 years Sex: Male : 1950 Associated Diagnoses: None Author: Lilia Haney MD Subjective Sleepy today, laying in bed. Discharge planned for home tomorrow and pt nodded when I mentioned it.CGT yesterday with sons went well. Health Status Allergies: Allergic Reactions (All) No Known Allergies, Allergies (1) Active Severity Reaction No Known Allergies None Documented Medications Current medications: (Selected) Inpatient Medications Ordered !-DuoNeb: 3 mL, NEB, QID RT, PRN: Shortness of Breath or wheezing Cipro: 250 mg = 1 tab(s), Oral, BID Colace: 100 mg = 1 cap(s), Oral, BID, PRN: Constipation Dulcolax Laxative: 10 mg = 1 supp, Per rectum, Daily, PRN: Constipation Humalog (Lispro) Sliding Scale Medium Dose Algorithm: Medium Dose Scale, Subcutaneous, QIDACHS Lantus: 13 unit(s) = 0.13 mL, Subcutaneous, qPM Metoprolol Tartrate: 50 mg = 1 tab(s), Oral, BID MiraLax: 17 gm = 1 packet(s), Oral, Daily, PRN: Constipation acetaminophen: 650 mg = 2 tab(s), Oral, q4hr, PRN: Pain apixaban: 5 mg = 1 tab(s), Oral, BID atorvastatin: 40 mg = 1 tab(s), Oral, Daily bacitracin zinc 500 units/g topical ointment: 1 dragan, TOP, q8hr, PRN: Other (see comment) dilTIAZem: 60 mg = 2 tab(s), Oral, BID ferrous sulfate: 325 mg = 1 tab(s), Oral, Daily glucagon: 1 mg = 1 vial(s), IM, Daily, PRN: Blood Glucose insulin lispro: 4 unit(s) = 0.04 mL, Subcutaneous, TIDAC levothyroxine: 50 mcg = 1 tab(s), Oral, Daily nystatin 100,000 units/g topical cream: 1 dragan, TOP, BID senna: 17.2 mg = 2 tab(s), Oral, HS, PRN: Constipation tamsulosin: 0.4 mg = 1 cap(s), Oral, Daily Documented Medications Documented Calcium 600+D: 2 tab(s), Oral, Daily, 0 Refill(s) Lantus 100 units/mL subcutaneous solution: 10 unit(s), Subcutaneous, Once a day (at bedtime), 10 mL, 0 Refill(s) Charleston-3 1000 mg oral capsule: 1,000 mg = 1 cap(s), Oral, Daily, 0 Refill(s) Vitamin C 1000 mg oral tablet: 1,000 mg = 1 tab(s), Oral, Daily, 30 tab(s), 0 Refill(s) apixaban 5 mg oral tablet: 5 mg = 1 tab(s), Oral, BID, 60 tab(s), 0 Refill(s) cyanocobalamin 500 mcg oral tablet: 500 mcg = 1 tab(s), Oral, Daily, 30 tab(s), 0 Refill(s) dapagliflozin 10 mg oral tablet: 10 mg = 1 tab(s), Oral, Daily, 0 Refill(s) dilTIAZem 300 mg/24 hours oral capsule, extended release: 300 mg = 1 cap(s), Oral, Daily, 30 cap(s), 0 Refill(s) ferrous sulfate (as elemental iron) 45 mg oral tablet, extended release: 45 mg = 1 tab(s), Oral, Daily, 30 tab(s), 0 Refill(s) finasteride 5 mg oral tablet: 5 mg = 1 tab(s), Oral, Daily, 30 tab(s), 0 Refill(s) furosemide 20 mg oral tablet: 40 mg = 2 tab(s), Oral, Daily, 30 tab(s), 0 Refill(s) levothyroxine 50 mcg (0.05 mg) oral tablet: 50 mcg = 1 tab(s), Oral, Daily, 30 tab(s), 0 Refill(s) lisinopril 5 mg oral tablet: 5 mg = 1 tab(s), Oral, Daily, 30 tab(s), 0 Refill(s) lovastatin 20 mg oral tablet: 20 mg = 1 tab(s), Oral, Daily, 30 tab(s), 0 Refill(s) metFORMIN 1000 mg oral tablet: 1,000 mg = 1 tab(s), Oral, BID, 60 tab(s), 0 Refill(s) metoprolol succinate 100 mg oral tablet, extended release: 100 mg = 1 tab(s), Oral, Daily, 30 tab(s), 0 Refill(s) multivitamin: 2 tab(s), Oral, Daily, 0 Refill(s) nystatin 100,000 units/g topical cream: 1 dragan, TOP, BID, 15 gm, 0 Refill(s) semaglutide 7 mg oral tablet: 7 mg = 1 tab(s), Oral, Daily, 0 Refill(s) tamsulosin 0.4 mg oral capsule: 0.4 mg = 1 cap(s), Oral, Daily, 30 cap(s), 0 Refill(s), Medications (20) Active Scheduled: (12) apixaban 5 mg tab [[facility]] 5 mg 1 tab(s), Oral, BID atorvastatin 40 mg Tab [[facility]] 40 mg 1 tab(s), Oral, Daily ciprofloxacin 250 mg Tab [[facility]] 250 mg 1 tab(s), Oral, BID dilTIAZem 30 mg Tab [[facility]] 60 mg 2 tab(s), Oral, BID ferrous sulfate [address] Tab [[facility]] 325 mg 1 tab(s), Oral, Daily insulin glargine 100 units/mL SubQ [[facility]] 13 unit(s) 0.13 mL, Subcutaneous, qPM insulin lispro (HumaLOG) 100 units/mL SubQ PEN [[facility]] 4 unit(s) 0.04 mL, Subcutaneous, TIDAC insulin lispro (HumaLOG) 100 units/mL [facility]Q PEN [facility]] Medium Dose Scale, Subcutaneous, QIDACHS levothyroxine 50 mcg (0.05 mg) Tab [[facility]] 50 mcg 1 tab(s), Oral, Daily metoprolol 50 mg Tab [[facility]] 50 mg 1 tab(s), Oral, BID nystatin Top 100,000 units/g Crm [[facility]] 1 dragan, TOP, BID tamsulosin 0.4 mg Oral Cap [[facility]] 0.4 mg 1 cap(s), Oral, Daily Continuous: (0) PRN: (8) acetaminophen 325 mg Tab [[facility]] 650 mg 2 tab(s), Oral, q4hr albuterol-ipratropium Inh Tammy 3 mL [[facility]] 3 mL, NEB, QID RT bacitracin zinc 500 units/g Top Oint UD [[facility]] 1 dragan, TOP, q8hr bisacodyl 10 mg Supp [[facility]] 10 mg 1 supp, Per rectum, Daily docusate sodium 100 mg Cap [[facility]] 100 mg 1 cap(s), Oral, BID glucagon recombinant 1 mg Inj [[facility]] 1 mg 1 vial(s), IM, Daily polyethylene glycol 3350 Oral Pwdr Recon [[facility]] 17 gm 1 packet(s), Oral, Daily senna 8.6 mg Tab [[facility]] 17.2 mg 2 tab(s), Oral, HS . Problem list: All Problems Atrial fibrillation / 39977281 / Confirmed BPH (benign prostatic hyperplasia) / 786759153 / Confirmed Dementia / 01749818 / Confirmed Depression / 62196266 / Confirmed HLD (hyperlipidemia) / 51697714 / Confirmed HTN (hypertension) / 2130670243 / Confirmed Iron deficiency anemia / 254201256 / Confirmed CARLOS A on CPAP / 116433740 / Confirmed Peripheral neuropathy / 4092662853 / Confirmed T2DM (type 2 diabetes mellitus) / 689694377 / Confirmed Ureterolithiasis / 17057965 / Confirmed Venous insufficiency / 912262522 / Confirmed, Active Problems (12) Atrial fibrillation BPH (benign prostatic hyperplasia) Dementia Depression HLD (hyperlipidemia) HTN (hypertension) Iron deficiency anemia CARLOS A on CPAP Peripheral neuropathy T2DM (type 2 diabetes mellitus) Ureterolithiasis Venous insufficiency Objective VS/Measurements Vital Signs (last 24 hrs) Last Charted Temp Oral 36.8 DegC (DEC 26 07:03) Heart Rate Peripheral 98 bpm (DEC 26 07:03) Resp Rate 18 br/min (DEC 26 07:03) SBP 116 mmHg (DEC 26 07:03) DBP 71 mmHg (DEC 26 07:03) Weight 89.5 kg (DEC 26 10:00) General: awake and alert, non verbal. Eye: Extraocular movements are intact, Normal conjunctiva. Respiratory: Lungs are clear to auscultation, Respirations are non-labored, anterior. Cardiovascular: No edema, irreg HR c/w afib. Gastrointestinal: Soft, Non-tender, Non-distended, Normal bowel sounds. Integumentary: Intact, No rash. Mental status/ Cognition Alert. nonverbal. Movement/ Coordination Psychiatric: Cooperative, Appropriate mood & affect. Results Review Results review Labs (Last four charted values) WBC 5.7 (DEC 17) 7.6 (DEC 14) 9.1 (DEC 11) Hgb L 10.3 (DEC 17) L 10.3 (DEC 14) L 10.4 (DEC 11) Hct L 32.2 (DEC 17) L 32.7 (DEC 14) L 33.1 (DEC 11) Plt H 381 (DEC 17) 334 (DEC 14) 272 (DEC 11) Na 138 (DEC 25) 138 (DEC 21) 137 (DEC 15) 137 (DEC 13) K 4.5 (DEC 25) 4.4 (DEC 21) 4.4 (DEC 15) 4.6 (DEC 17) CO2 22 (DEC 25) L 21 (DEC 21) L 20 (DEC 15) 22 (DEC 13) Cl 104 (DEC 25) 105 (DEC 17) 102 (DEC 15) 102 (DEC 13) Cr 1.50 (DEC 25) H 1.73 (DEC 21) H 1.90 (DEC 15) H 1.57 (DEC 13) BUN H 43 (DEC 25) H 50 (DEC 17) H 54 (DEC 15) H 45 (DEC 13) Glucose 90 (DEC 25) H 102 (DEC 17) 94 (DEC 15) 97 (DEC 13) Ca 8.9 (DEC 25) 8.7 (DEC 21) 8.6 (DEC 19) 8.9 (DEC 17) Lab results 12/26/2022 11:48 EDT Blood Glucose, Capillary POC 113 mg/dL HI 12/26/2022 8:26 EDT Glucose POC 117 mg/dL HI 12/26/2022 7:54 EDT Blood Glucose, Capillary POC 117 mg/dL HI 12/25/2022 20:47 EDT Glucose POC 278 mg/dL HI 12/25/2022 19:54 EDT Blood Glucose, Capillary POC 278 mg/dL HI 12/25/2022 18:20 EDT Glucose POC 104 mg/dL ND 12/25/2022 17:22 EDT Blood Glucose, Capillary POC 104 mg/dL HI 12/25/2022 12:20 EDT Glucose POC 137 mg/dL ND 12/25/2022 11:32 EDT Blood Glucose, Capillary POC 137 mg/dL ND 12/25/2022 8:08 EDT Glucose POC 104 mg/dL ND 12/25/2022 7:23 EDT Blood Glucose, Capillary POC 104 mg/dL ND 12/25/2022 5:35 EDT Creatinine 1.50 mg/dL Glucose Lvl DH 90 mg/dL BUN DH 43 mg/dL HI Est GFR DH 49 mL/min/1.73 m2 LOW Sodium Lvl DH 138 mmol/L Potassium Lvl DH 4.5 mmol/L Chloride Lvl DH 104 mmol/L CO2 DH 22 mmol/L Anion Gap DH 12 mmol/L Calcium Lvl DH 8.9 mg/dL Impression and Plan #bilateral strokes, embolic: #right cerebellar stroke #left MCA stroke nonverbal, expressive > receptive aphasia, apparent weakness BUE and LE is mild daily 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 #afib apixaban restarted, and on metoprolol and dilt in short acting formulations as pt has been chewing capsules dilt reduced to 60 bid as not been getting doses due to soft BPs <120 #HTN HLD period of permissive HTN has ended BP 110-140 still soft; can restart lisinopril then lasix as needed if BPs start trending up weight 98->91->90 kg (do not believe 98 is accurate); continue to follow daily weights consider restarting lasix if weights start trending up; currently stable 90-91 kg #CKD stage 3 baseline Cr at 1.9 to 2 - Cr at 1.3-1.4 when admitted, now 1.7-1.9, trending back up recheck BMP every few days; next check in am continuing to hold lasix, lisinopril for now given BP 110-130s #DM2 HbA1C at 10, poor control ? noncompliance with medications at home Lantus increased to 13 from 10. Medium ISS with 4 units tid AC. Oral meds metformin semaglutide and dapagliflozin held BGs 130-200, reasonable control Monitor BG qid and adjust program as needed. 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 [Electronically Signed on: 12/26/2022 12:17 EDT] Lilia Haney MD, MD [Verified on: 12/26/2022 12:17 EDT] Lilia Haney MD, MD * Lilia Haney MD: PERFORM, SIGN, VERIFY Event Display: Progress Note-Physician Authored Date: Patient: MELANIE PURVIS Age: 72 years Sex: Male : 1950 Associated Diagnoses: None Author: Lilia Haney MD Subjective Sitting up in chair. Did not answer any questions or engage much with me during visit. Over weekend, had signs suggesting UTI so UA checked and positive, started on cipro while awaiting culture. Has had some loose stools per RN Health Status Allergies: Allergic Reactions (All) No Known Allergies, Allergies (1) Active Severity Reaction No Known Allergies None Documented Medications Current medications: (Selected) Inpatient Medications Ordered !-DuoNeb: 3 mL, NEB, QID RT, PRN: Shortness of Breath or wheezing Cipro: 250 mg = 1 tab(s), Oral, BID Colace: 100 mg = 1 cap(s), Oral, BID, PRN: Constipation Dulcolax Laxative: 10 mg = 1 supp, Per rectum, Daily, PRN: Constipation Humalog (Lispro) Sliding Scale Medium Dose Algorithm: Medium Dose Scale, Subcutaneous, QIDACHS Lantus: 13 unit(s) = 0.13 mL, Subcutaneous, qPM Metoprolol Tartrate: 50 mg = 1 tab(s), Oral, BID MiraLax: 17 gm = 1 packet(s), Oral, Daily, PRN: Constipation acetaminophen: 650 mg = 2 tab(s), Oral, q4hr, PRN: Pain apixaban: 5 mg = 1 tab(s), Oral, BID atorvastatin: 40 mg = 1 tab(s), Oral, Daily bacitracin zinc 500 units/g topical ointment: 1 dragan, TOP, q8hr, PRN: Other (see comment) dilTIAZem: 60 mg = 2 tab(s), Oral, BID ferrous sulfate: 325 mg = 1 tab(s), Oral, Daily glucagon: 1 mg = 1 vial(s), IM, Daily, PRN: Blood Glucose insulin lispro: 4 unit(s) = 0.04 mL, Subcutaneous, TIDAC levothyroxine: 50 mcg = 1 tab(s), Oral, Daily nystatin 100,000 units/g topical cream: 1 dragan, TOP, BID senna: 17.2 mg = 2 tab(s), Oral, HS, PRN: Constipation tamsulosin: 0.4 mg = 1 cap(s), Oral, Daily Documented Medications Documented Calcium 600+D: 2 tab(s), Oral, Daily, 0 Refill(s) Lantus 100 units/mL subcutaneous solution: 10 unit(s), Subcutaneous, Once a day (at bedtime), 10 mL, 0 Refill(s) [place]-3 1000 mg oral capsule: 1,000 mg = 1 cap(s), Oral, Daily, 0 Refill(s) Vitamin C 1000 mg oral tablet: 1,000 mg = 1 tab(s), Oral, Daily, 30 tab(s), 0 Refill(s) apixaban 5 mg oral tablet: 5 mg = 1 tab(s), Oral, BID, 60 tab(s), 0 Refill(s) cyanocobalamin 500 mcg oral tablet: 500 mcg = 1 tab(s), Oral, Daily, 30 tab(s), 0 Refill(s) dapagliflozin 10 mg oral tablet: 10 mg = 1 tab(s), Oral, Daily, 0 Refill(s) dilTIAZem 300 mg/24 hours oral capsule, extended release: 300 mg = 1 cap(s), Oral, Daily, 30 cap(s), 0 Refill(s) ferrous sulfate (as elemental iron) 45 mg oral tablet, extended release: 45 mg = 1 tab(s), Oral, Daily, 30 tab(s), 0 Refill(s) finasteride 5 mg oral tablet: 5 mg = 1 tab(s), Oral, Daily, 30 tab(s), 0 Refill(s) furosemide 20 mg oral tablet: 40 mg = 2 tab(s), Oral, Daily, 30 tab(s), 0 Refill(s) levothyroxine 50 mcg (0.05 mg) oral tablet: 50 mcg = 1 tab(s), Oral, Daily, 30 tab(s), 0 Refill(s) lisinopril 5 mg oral tablet: 5 mg = 1 tab(s), Oral, Daily, 30 tab(s), 0 Refill(s) lovastatin 20 mg oral tablet: 20 mg = 1 tab(s), Oral, Daily, 30 tab(s), 0 Refill(s) metFORMIN 1000 mg oral tablet: 1,000 mg = 1 tab(s), Oral, BID, 60 tab(s), 0 Refill(s) metoprolol succinate 100 mg oral tablet, extended release: 100 mg = 1 tab(s), Oral, Daily, 30 tab(s), 0 Refill(s) multivitamin: 2 tab(s), Oral, Daily, 0 Refill(s) nystatin 100,000 units/g topical cream: 1 dragan, TOP, BID, 15 gm, 0 Refill(s) semaglutide 7 mg oral tablet: 7 mg = 1 tab(s), Oral, Daily, 0 Refill(s) tamsulosin 0.4 mg oral capsule: 0.4 mg = 1 cap(s), Oral, Daily, 30 cap(s), 0 Refill(s), Medications (20) Active Scheduled: (12) apixaban 5 mg tab [[facility]] 5 mg 1 tab(s), Oral, BID atorvastatin 40 mg Tab [[facility]] 40 mg 1 tab(s), Oral, Daily ciprofloxacin 250 mg Tab [[facility]] 250 mg 1 tab(s), Oral, BID dilTIAZem 30 mg Tab [[facility]] 60 mg 2 tab(s), Oral, BID ferrous sulfate [address] Tab [[facility]] 325 mg 1 tab(s), Oral, Daily insulin glargine 100 units/mL SubQ [[facility]] 13 unit(s) 0.13 mL, Subcutaneous, qPM insulin lispro (HumaLOG) 100 units/mL SubQ PEN [[facility]] 4 unit(s) 0.04 mL, Subcutaneous, TIDAC insulin lispro (HumaLOG) 100 units/mL SubQ PEN [[facility]] Medium Dose Scale, Subcutaneous, QIDACHS levothyroxine 50 mcg (0.05 mg) Tab [[facility]] 50 mcg 1 tab(s), Oral, Daily metoprolol 50 mg Tab [[facility]] 50 mg 1 tab(s), Oral, BID nystatin Top 100,000 units/g Crm [[facility]] 1 dragan, TOP, BID tamsulosin 0.4 mg Oral Cap [[facility]] 0.4 mg 1 cap(s), Oral, Daily Continuous: (0) PRN: (8) acetaminophen 325 mg Tab [[facility]] 650 mg 2 tab(s), Oral, q4hr albuterol-ipratropium Inh Tammy 3 mL [[facility]] 3 mL, NEB, QID RT bacitracin zinc 500 units/g Top Oint UD [[facility]] 1 dragan, TOP, q8hr bisacodyl 10 mg Supp [[facility]] 10 mg 1 supp, Per rectum, Daily docusate sodium 100 mg Cap [[facility]] 100 mg 1 cap(s), Oral, BID glucagon recombinant 1 mg Inj [[facility]] 1 mg 1 vial(s), IM, Daily polyethylene glycol 3350 Oral Pwdr Recon [[facility]] 17 gm 1 packet(s), Oral, Daily senna 8.6 mg Tab [[facility]] 17.2 mg 2 tab(s), Oral, HS . Problem list: All Problems Atrial fibrillation / [id number] / Confirmed BPH (benign prostatic hyperplasia) / 825441605 / Confirmed Dementia / 50040881 / Confirmed Depression / 68141623 / Confirmed HLD (hyperlipidemia) / 42343664 / Confirmed HTN (hypertension) / 9741384247 / Confirmed Iron deficiency anemia / 323255730 / Confirmed CARLOS A on CPAP / 171710179 / Confirmed Peripheral neuropathy / 3644776044 / Confirmed T2DM (type 2 diabetes mellitus) / 374938522 / Confirmed Ureterolithiasis / 25823208 / Confirmed Venous insufficiency / 319881356 / Confirmed, Active Problems (12) Atrial fibrillation BPH (benign prostatic hyperplasia) Dementia Depression HLD (hyperlipidemia) HTN (hypertension) Iron deficiency anemia CARLOS A on CPAP Peripheral neuropathy T2DM (type 2 diabetes mellitus) Ureterolithiasis Venous insufficiency Objective VS/Measurements Vital Signs (last 24 hrs) Last Charted Temp Oral 36.6 DegC (DEC 24:) Heart Rate Peripheral L 57 bpm (DEC 24:) Resp Rate 18 br/min (DEC 24:) SBP 108 mmHg (DEC 24:) DBP L 56 mmHg (DEC 24:) General: awake and alert, non verbal. Eye: Extraocular movements are intact, Normal conjunctiva. Respiratory: Lungs are clear to auscultation, Respirations are non-labored, anterior. Cardiovascular: No edema, irreg HR c/w afib. Gastrointestinal: Soft, Non-tender, Non-distended, Normal bowel sounds. Integumentary: Intact, No rash. Mental status/ Cognition Alert. nonverbal. limited engagement, did not follow coommands or attempt to answer any questions even with nodding. Movement/ Coordination Psychiatric: Cooperative, Appropriate mood & affect. Results Review Results review Labs (Last four charted values) WBC 5.7 (DEC 17) 7.6 (DEC 14) 9.1 (DEC 11) Hgb L 10.3 (DEC 17) L 10.3 (DEC 14) L 10.4 (DEC 11) Hct L 32.2 (MAR 13) L 32.7 (MAR 10) L 33.1 (DEC 07) Plt H 381 (DEC 13) 334 (DEC 10) 272 (DEC 07) Na 138 (DEC 17) 137 (DEC 15) 137 (DEC 13) 138 (DEC 10) K 4.4 (DEC 17) 4.4 (DEC 15) 4.6 (DEC 13) 4.8 (DEC 10) CO2 L 21 (DEC 17) L 20 (DEC 15) 22 (DEC 17) 22 (DEC 10) Cl 105 (DEC 21) 102 (DEC 15) 102 (DEC 17) 105 (DEC 10) Cr H 1.73 (DEC 17) H 1.90 (DEC 15) H 1.57 (DEC 17) 1.30 (DEC 10) BUN H 50 (DEC 21) H 54 (DEC 15) H 45 (DEC 17) H 38 (DEC 10) Glucose H 102 (DEC 21) 94 (DEC 15) 97 (DEC 13) H 146 (DEC 10) Ca 8.7 (DEC 21) 8.6 (DEC 15) 8.9 (DEC 17) 8.9 (DEC 10) Lab results 12/24/2022 12:02 EDT Blood Glucose, Capillary POC 124 mg/dL ND 12/24/2022 8:24 EDT Glucose POC 137 mg/dL ND 12/24/2022 8:09 EDT Blood Glucose, Capillary POC 137 mg/dL ND 12/23/2022 21:17 EDT Blood Glucose, Capillary POC 197 mg/dL ND 12/23/2022 21:00 EDT Glucose POC 197 mg/dL ND 12/23/2022 20:55 EDT UA Color Light Yellow UA Clarity Cloudy UA Spec Grav 1.020 UA Bili Negative UA pH 6.0 UA Urobilinogen 0.20 Eu/dL UA Blood Moderate UA Glucose Negative mg/dL UA Ketones Negative UA Protein 30 UA Nitrite Positive UA Leuk Est Moderate Urine Culture? Yes Micro? Yes UA WBC >50 /HPF HI UA RBC 14 /HPF HI UA Bacteria Moderate /HPF 12/23/2022 20:11 EDT Blood Glucose, Capillary POC 197 mg/dL ND 12/23/2022 18:10 EDT Glucose POC 114 mg/dL ND 12/23/2022 17:48 EDT Blood Glucose, Capillary POC 114 mg/dL ND 12/23/2022 13:02 EDT Glucose POC 157 mg/dL ND 12/23/2022 12:07 EDT Blood Glucose, Capillary POC 157 mg/dL HI 12/23/2022 8:03 EDT Glucose POC 120 mg/dL ND 12/23/2022 7:06 EDT Blood Glucose, Capillary POC 120 mg/dL ND Impression and Plan #bilateral strokes, embolic: #right cerebellar stroke #left MCA stroke nonverbal, expressive > receptive aphasia, apparent weakness BUE and LE is mild daily 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 #afib apixaban restarted, and on metoprolol and dilt in short acting formulations as pt has been chewing capsules dilt reduced to 60 bid as not been getting doses due to soft BPs <120 #HTN HLD period of permissive HTN has ended BP 110-140 still soft; can restart lisinopril then lasix as needed if BPs start trending up weight 98->91->90 kg (do not believe 98 is accurate); continue to follow daily weights consider restarting lasix if weights start trending up; currently stable 90-91 kg #CKD stage 3 baseline Cr at 1.9 to 2 - Cr at 1.3-1.4 when admitted, now 1.7-1.9, trending back up recheck BMP every few days; next check in am continuing to hold lasix, lisinopril for now given BP 110-130s #DM2 HbA1C at 10, poor control ? noncompliance with medications at home Lantus increased to 13 from 10. Medium ISS with 4 units tid AC. Oral meds metformin semaglutide and dapagliflozin held BGs 130-200, reasonable control Monitor BG qid and adjust program as needed. # 1st culture showed dennis f/u urine cultures negative for dennis; grew 1-9k mixed red thornton out 12/13 and bladder scans 100-400cc, but random given pt is typically incontinent #dispo anticipate 2.5 week LOS, home with home health services (lives with supportive son) f/u PCP neuro Code Status: no CPR but ok to intubate if for reversible cause. #Potential or actual clinically significant medication issues addressed per CMS regulations: YES dilt reduced Did the facility complete prescribed/recommended actions in response to the identified potentially clinically significant medication issues by midnight of the next calendar day? YES [Electronically Signed on: 12/24/2022 12:34 EDT] Lilia Haney MD, MD [Verified on: 12/24/2022 12:34 EDT] Lilia Haney MD, MD * Lilia Haney MD: PERFORM, SIGN, VERIFY Event Display: Progress Note-Physician Authored Date: Patient: MELANIE PURVIS Age: 72 years Sex: Male : 1950 Associated Diagnoses: None Author: Lilia Haney MD Subjective One word spoken yesterday, which is an improvement! Health Status Allergies: Allergic Reactions (All) No Known Allergies, Allergies (1) Active Severity Reaction No Known Allergies None Documented Medications Current medications: (Selected) Inpatient Medications Ordered !-DuoNeb: 3 mL, NEB, QID RT, PRN: Shortness of Breath or wheezing Colace: 100 mg = 1 cap(s), Oral, BID Dulcolax Laxative: 10 mg = 1 supp, Per rectum, Daily, PRN: Constipation Humalog (Lispro) Sliding Scale Medium Dose Algorithm: Medium Dose Scale, Subcutaneous, QIDACHS Lantus: 13 unit(s) = 0.13 mL, Subcutaneous, qPM Metoprolol Tartrate: 50 mg = 1 tab(s), Oral, BID MiraLax: 17 gm = 1 packet(s), Oral, Daily, PRN: Constipation acetaminophen: 650 mg = 2 tab(s), Oral, q4hr, PRN: Pain apixaban: 5 mg = 1 tab(s), Oral, BID atorvastatin: 40 mg = 1 tab(s), Oral, Daily bacitracin zinc 500 units/g topical ointment: 1 dragan, TOP, q8hr, PRN: Other (see comment) dilTIAZem: 60 mg = 2 tab(s), Oral, q6hr ferrous sulfate: 325 mg = 1 tab(s), Oral, Daily glucagon: 1 mg = 1 vial(s), IM, Daily, PRN: Blood Glucose insulin lispro: 4 unit(s) = 0.04 mL, Subcutaneous, TIDAC levothyroxine: 50 mcg = 1 tab(s), Oral, Daily nystatin 100,000 units/g topical cream: 1 dragan, TOP, BID senna: 17.2 mg = 2 tab(s), Oral, HS tamsulosin: 0.4 mg = 1 cap(s), Oral, Daily Documented Medications Documented Calcium 600+D: 2 tab(s), Oral, Daily, 0 Refill(s) Lantus 100 units/mL subcutaneous solution: 10 unit(s), Subcutaneous, Once a day (at bedtime), 10 mL, 0 Refill(s) [place]-3 1000 mg oral capsule: 1,000 mg = 1 cap(s), Oral, Daily, 0 Refill(s) Vitamin C 1000 mg oral tablet: 1,000 mg = 1 tab(s), Oral, Daily, 30 tab(s), 0 Refill(s) apixaban 5 mg oral tablet: 5 mg = 1 tab(s), Oral, BID, 60 tab(s), 0 Refill(s) cyanocobalamin 500 mcg oral tablet: 500 mcg = 1 tab(s), Oral, Daily, 30 tab(s), 0 Refill(s) dapagliflozin 10 mg oral tablet: 10 mg = 1 tab(s), Oral, Daily, 0 Refill(s) dilTIAZem 300 mg/24 hours oral capsule, extended release: 300 mg = 1 cap(s), Oral, Daily, 30 cap(s), 0 Refill(s) ferrous sulfate (as elemental iron) 45 mg oral tablet, extended release: 45 mg = 1 tab(s), Oral, Daily, 30 tab(s), 0 Refill(s) finasteride 5 mg oral tablet: 5 mg = 1 tab(s), Oral, Daily, 30 tab(s), 0 Refill(s) furosemide 20 mg oral tablet: 40 mg = 2 tab(s), Oral, Daily, 30 tab(s), 0 Refill(s) levothyroxine 50 mcg (0.05 mg) oral tablet: 50 mcg = 1 tab(s), Oral, Daily, 30 tab(s), 0 Refill(s) lisinopril 5 mg oral tablet: 5 mg = 1 tab(s), Oral, Daily, 30 tab(s), 0 Refill(s) lovastatin 20 mg oral tablet: 20 mg = 1 tab(s), Oral, Daily, 30 tab(s), 0 Refill(s) metFORMIN 1000 mg oral tablet: 1,000 mg = 1 tab(s), Oral, BID, 60 tab(s), 0 Refill(s) metoprolol succinate 100 mg oral tablet, extended release: 100 mg = 1 tab(s), Oral, Daily, 30 tab(s), 0 Refill(s) multivitamin: 2 tab(s), Oral, Daily, 0 Refill(s) nystatin 100,000 units/g topical cream: 1 dragan, TOP, BID, 15 gm, 0 Refill(s) semaglutide 7 mg oral tablet: 7 mg = 1 tab(s), Oral, Daily, 0 Refill(s) tamsulosin 0.4 mg oral capsule: 0.4 mg = 1 cap(s), Oral, Daily, 30 cap(s), 0 Refill(s), Medications (19) Active Scheduled: (13) apixaban 5 mg tab [[facility]] 5 mg 1 tab(s), Oral, BID atorvastatin 40 mg Tab [[facility]] 40 mg 1 tab(s), Oral, Daily dilTIAZem 30 mg Tab [[facility]] 60 mg 2 tab(s), Oral, q6hr docusate sodium 100 mg Cap [[facility]] 100 mg 1 cap(s), Oral, BID ferrous sulfate [address] Tab [[facility]] 325 mg 1 tab(s), Oral, Daily insulin glargine 100 units/mL SubQ [[facility]] 13 unit(s) 0.13 mL, Subcutaneous, qPM insulin lispro (HumaLOG) 100 units/mL SubQ PEN [[facility]] 4 unit(s) 0.04 mL, Subcutaneous, TIDAC insulin lispro (HumaLOG) 100 units/mL SubQ PEN [[facility]] Medium Dose Scale, Subcutaneous, QIDACHS levothyroxine 50 mcg (0.05 mg) Tab [[facility]] 50 mcg 1 tab(s), Oral, Daily metoprolol 50 mg Tab [[facility]] 50 mg 1 tab(s), Oral, BID nystatin Top 100,000 units/g Crm [[facility]] 1 dragan, TOP, BID senna 8.6 mg Tab [[facility]] 17.2 mg 2 tab(s), Oral, HS tamsulosin 0.4 mg Oral Cap [[facility]] 0.4 mg 1 cap(s), Oral, Daily Continuous: (0) PRN: (6) acetaminophen 325 mg Tab [[facility]] 650 mg 2 tab(s), Oral, q4hr albuterol-ipratropium Inh Tammy 3 mL [[facility]] 3 mL, NEB, QID RT bacitracin zinc 500 units/g Top Oint UD [[facility]] 1 dragan, TOP, q8hr bisacodyl 10 mg Supp [[facility]] 10 mg 1 supp, Per rectum, Daily glucagon recombinant 1 mg Inj [[facility]] 1 mg 1 vial(s), IM, Daily polyethylene glycol 3350 Oral Pwdr Recon [[facility]] 17 gm 1 packet(s), Oral, Daily . Problem list: All Problems Atrial fibrillation / [id number] / Confirmed BPH (benign prostatic hyperplasia) / 912001881 / Confirmed Dementia / 98577191 / Confirmed Depression / 92610155 / Confirmed HLD (hyperlipidemia) / 70068864 / Confirmed HTN (hypertension) / 1961634624 / Confirmed Iron deficiency anemia / 074235073 / Confirmed CARLOS A on CPAP / 825185706 / Confirmed Peripheral neuropathy / 0474275644 / Confirmed T2DM (type 2 diabetes mellitus) / 836494616 / Confirmed Ureterolithiasis / 81570076 / Confirmed Venous insufficiency / 855759715 / Confirmed, Active Problems (12) Atrial fibrillation BPH (benign prostatic hyperplasia) Dementia Depression HLD (hyperlipidemia) HTN (hypertension) Iron deficiency anemia CARLOS A on CPAP Peripheral neuropathy T2DM (type 2 diabetes mellitus) Ureterolithiasis Venous insufficiency Objective VS/Measurements Vital Signs (last 24 hrs) Last Charted Temp Temporal 36.6 DegC (DEC 20 08:30) Heart Rate Peripheral 86 bpm (DEC 20 08:30) Resp Rate 18 br/min (MAR 16 08:30) SBP 129 mmHg (DEC 20 08:30) DBP 77 mmHg (DEC 20 08:30) Weight 91 kg (DEC 20 10:09) General: awake and alert, non verbal. Eye: Extraocular movements are intact, Normal conjunctiva. Respiratory: Lungs are clear to auscultation, Respirations are non-labored, anterior. Cardiovascular: No edema, irreg HR c/w afib. Gastrointestinal: Soft, Non-tender, Non-distended, Normal bowel sounds. Integumentary: Intact, No rash. Mental status/ Cognition Alert. nonverbal. limited engagement, difficulty following commands. Movement/ Coordination Psychiatric: Cooperative, Appropriate mood & affect. Results Review Results review Labs (Last four charted values) WBC 5.7 (DEC 17) 7.6 (DEC 14) 9.1 (DEC 11) Hgb L 10.3 (DEC 17) L 10.3 (DEC 14) L 10.4 (DEC 11) Hct L 32.2 (DEC 17) L 32.7 (DEC 14) L 33.1 (DEC 11) Plt H 381 (DEC 17) 334 (DEC 14) 272 (DEC 11) Na 137 (DEC 19) 137 (DEC 17) 138 (DEC 14) 136 (DEC 11) K 4.4 (DEC 19) 4.6 (DEC 17) 4.8 (DEC 14) 4.4 (DEC 11) CO2 L 20 (DEC 19) 22 (DEC 17) 22 (DEC 14) 22 (DEC 11) Cl 102 (DEC 19) 102 (DEC 17) 105 (DEC 14) 102 (DEC 11) Cr H 1.90 (DEC 19) H 1.57 (DEC 17) 1.30 (DEC 14) 1.39 (DEC 11) BUN H 54 (DEC 19) H 45 (DEC 17) H 38 (DEC 14) H 38 (DEC 11) Glucose 94 (DEC 19) 97 (DEC 17) H 146 (DEC 14) H 143 (DEC 11) Ca 8.6 (DEC 19) 8.9 (DEC 17) 8.9 (DEC 14) 8.6 (DEC 11) Lab results 12/20/2022 8:13 EDT Glucose POC 130 mg/dL ND 12/20/2022 8:06 EDT Blood Glucose, Capillary POC 130 mg/dL ND 2022 20:35 EDT Glucose POC 190 mg/dL HI 2022 17:44 EDT Glucose POC 169 mg/dL HI 2022 17:41 EDT Blood Glucose, Capillary POC 169 mg/dL HI 2022 16:48 EDT Blood Glucose, Capillary POC 169 mg/dL HI 2022 12:45 EDT Glucose POC 132 mg/dL HI 2022 12:03 EDT Blood Glucose, Capillary POC 132 mg/dL HI 2022 8:40 EDT Blood Glucose, Capillary POC 97 mg/dL 2022 7:42 EDT Glucose POC 97 mg/dL 2022 5:35 EDT Creatinine 1.90 mg/dL HI Glucose Lvl DH 94 mg/dL BUN DH 54 mg/dL HI Est GFR DH 37 mL/min/1.73 m2 LOW Sodium Lvl DH 137 mmol/L Potassium Lvl DH 4.4 mmol/L Chloride Lvl DH 102 mmol/L CO2 DH 20 mmol/L LOW Anion Gap DH 15 mmol/L Calcium Lvl DH 8.6 mg/dL Impression and Plan #bilateral strokes, embolic: #right cerebellar stroke #left MCA stroke nonverbal, expressive > receptive aphasia, apparent weakness BUE and LE is mild daily 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 #afib apixaban restarted, and on metoprolol and dilt in short acting formulations as pt has been chewing capsules #HTN HLD period of permissive HTN has ended BP 110-140 still soft; can restart lisinopril then lasix as needed if BPs start trending up weight 98->91->90 kg (do not believe 98 is accurate); continue to follow daily weights consider restarting lasix if weights start trending up; currently stable 90-91 kg #CKD stage 3 baseline Cr at 1.9 to 2 - Cr at 1.3-1.4 when admitted, now 1.9, trending back up recheck BMP every few days; next check on Sat continuing to hold lasix, lisinopril for now given BP 110-130s #DM2 HbA1C at 10, poor control ? noncompliance with medications at home Lantus increased to 13 from 10. Medium ISS with 4 units tid AC. Oral meds metformin semaglutide and dapagliflozin held BGs 130-200, reasonable control Monitor BG qid and adjust program as needed. # 1st culture showed dennis f/u urine cultures negative for dennis; grew 1-9k mixed red thornton out 3 and bladder scans 100-400cc, but random given pt is typically incontinent #dispo anticipate 2.5 week LOS, home with home health services (lives with supportive son) f/u PCP neuro Code Status: no CPR but ok to intubate if for reversible cause. #Potential or actual clinically significant medication issues addressed per CMS regulations: No potentially clinically significant medication issues. [Electronically Signed on: 12/20/2022 11:19 EDT] Lilia Haney MD, MD [Verified on: 12/20/2022 11:19 EDT] Lilia Haney MD, MD Patient Care team information Care Team Personnel Name: Physician, Non-Staff [facility] Position: [facility] No Access Member Role: Primary Care Physician Name: Constantine Hlil Position: [facility] No Access Member Role: Informed Provider Care Team Related Persons Name: DORA PURVIS Address: [place] [phone]
--- OUTSIDE RECORDS SUMMARY | 2023-11-12 15:05 | XMS_ITS | Continuity of Care Document ---
Author Name Unknown Organization [facility] Address Unknown Care Team Providers Care Record Systems Analyst Name Role Phone Constantine Hill Primary Care Physician Unavail able Encounter [facility] Date(s): 12/03/22 - 12/10/22 [facility] [address] [place] [address]- Encounter Diagnosis Cerebellar stroke(Discharge Diagnosis) - 12/03/22 Embolic stroke(Discharge Diagnosis) - 12/03/22 Atrial fibrillation(Discharge Diagnosis) - 12/03/22 Dementia(Discharge Diagnosis) - 12/03/22 Discharge Disposition: Acute Rehab/Inpt Rehab Fac Attending Physician: Kamari Fontana Admitting Physician: Kamari Fontana Allergies, Adverse Reactions, Alerts No Known Allergies Assessment and Plan Extracted from: Title:SOAP Note: Simple * Author:Tiny Gomes MD Date:12/10/22 Health Status Allergies: Allergic Reactions (All) No Known Allergies, Allergies (1) Active Severity Reaction No Known Allergies None Documented Current medications: (Selected) Inpatient Medications Ordered !-DuoNeb: [...] day (at bedtime), 10 mL, 0 Refill(s) Easton-3 1000 mg oral capsule: 1,000 mg = [...] cap(s), Oral, Daily, 30 cap(s), 0 Refill(s) Impression and Plan Assessment/Plan 1. Dementia F03.90 2. Atrial fibrillation I48.91 3. Cerebellar stroke I63.9, Embolic stroke I63.9 71 y/o M with ?dementia/cognitive impairment, chronic Afib on Eliquis, T2DM, HTN, HLD, CARLOS A on CPAP, BPH, iron def anemia, CKD unknown stage, venous insufficiency, and questionable medication compliance at home who presented to [facility] ED and now found to be completely aphasic with variable motor movements from acute right cerebellar and left frontoparietal infarcts. Suspect possibly embolic in origin due to possibly medication nonadherence at home (son confirmed that noncompliance has been an issue at home). Initial NIH score on presentation to [facility] was 29 in ED documentation (though they reported difficult to assess due to patient's aphasia and lack of participation). Patient's NIH score here at [facility] was 13 (accounting for his aphasia making some elements difficult to test). He was out of the window for TPA at outside ED (last known well 9pm evening before). Neurology (Dr. Dominguez) was consulted by phone at [facility] and recommended resuming his apixaban as long as no contraindication given question of compliance with apixaban. Due to lack of beds at [facility] and in [facility] system, patient was transferred to [facility] for further acute inpatient management of acute stroke. Patient has severe receptive and expressive aphasia. The pt needing moderate assist x2 for mobility with a lot of cueing (due to receptive and expressive aphasia). Shows R inattention and lack of safety awareness. Would benefit from rehab given severity of deficits. Working with SW/CM to determine next level of care for rehab. 12/09/2022- BP has increased. Awaiting insurance auth for possible acute rehab approval . # Right cerebellar infarct and Left frontoparietal infarct # Receptive and Expressive Aphasia - Resumed and continued apixaban 5 mg BID - TTE shows normal LVEF, mod TR, dilated atria, mild pulm HTN - Telemetry showing chronic Afib - Apprec Neuro recs. Outpatient FUV 90 days. 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 See their ongoing notes # Afib - Continue Diltiazem and Metoprolol but converted to short acting doses for now as patient is chewing the capsules/tablets - Continue Eliquis 5 mg BID # HTN - Holding furosemide and lisinopril for permissive HTN up to systolic 160 and BP beginnig to creep up but still in the period of permissive HTN and not over 160 systolic so will recheck tomorrow and decide whether to restart lisinopril. # T2DM - BGs elevated significantly on admission, but much better with adjustments below - Hba1c 10% suggesting poor control and noncompliance at home - Increased Lantus to 13 units QPM and introduced 4 units lispro TID with meals and glucoses now running 105-200 with most below 180 but did have glucose 257 yesterday PM so will continue to watch closely. - Medium scale SSI to follow - Holding home semaglutide and dapagliflozin for now while inpatient # CKD stage 3 - Cr 1.9 at [facility] ED, baseline Cr 1.9-2 per PCP records, Cr 1.8 currently. - Hold furosemide and lisinopril for now for permissive HTN # Pos UA # Urinary retention - Unclear he has sx since he is aphasic). No fever or leucocytosis. - Roxy in urine which typically represents colonization in many cases. Repeat UA pending. - cw Flomax # Hx iron def anemia - Continue home iron supp - Hb 10.1 ->9.6 -> 9.5 -- stable - Hb baseline 10 per PCP records Code status: No CPR but ok for short term intubation if condition reversible Medical DPOA: Carmelo (son) [phone] Other contact Dora (son) [phone] Extracted from: Title:Clinical Document Author:ANGELIQUE PARRISH RN Date:12/03/22 Pt's son found pt on floor a t home and thought he had fallen. Son found that pt could not talk or answer questions, seemed to be in a daze, so son called ambulance. Pt was taken to [facility] in [place], [place]. The CT scan was negative for CVA but the MRI showed restricted diffusion so pt's Dx is CVA/TIA. Pt had half doses of his cardiac meds, one run of Mg ICVPB and 20mg of Lasix IVP at [facility]. Pt's PCP told [facility] that pt is non-compliant with his meds. Pt was incontinent of B+B upon arrival. He has expressive aphasia. His PMH is Bladder CA, Afib, VERONICA, CKD, Depression, Asthma, DM, HTN, HLD, Asbestosis and CARLOS A. See MAR, I-view and Adult History for details. Future Appointments Functional Status 12/10/22 History of Fall in Last 3 Months Mathews Y es Mobility Romero Slightly limited 12/09/22 Bathing ADL Index Requires assistance (1) Dressing ADL Index Requires assistance (1) Toileting ADL Index Requires assistance (1) Transferring Bed or Chair ADL Index Requ ires assistance (1) Continence ADL Index Requires assistance (1) ADLs Moderate assistance 12/03/22 Recent Travel History No recent travel Family Member Travel History No recent t ravel COVID-19 Screening None Medications apixaban 5 mg oral tablet 5 mg = 1 tab(s), Oral, BID, # 60 tab(s), 0 Refill(s) Start Date: 12/03/22 Status: Ordered Calcium 600+D 2 tab(s), Oral, Daily, 0 Refill(s) Start Date: 12/03/22 Status: Ordered cyanocobalamin 500 mcg oral tablet 500 mcg = 1 tab(s), Oral, Daily, # 30 tab(s), 0 Refill(s) Start Date: 12/03/22 Status: Ordered dapagliflozin 10 mg oral tablet 10 mg = 1 tab(s), Oral, Daily, 0 Refill(s) Start Date: 12/03/22 Status: Ordered dilTIAZem 300 mg/24 hours oral capsule, extended release 300 mg = 1 cap(s), Oral, Daily, # 30 cap(s), 0 Refill(s) Start Date: 12/03/22 Status: Ordered ferrous sulfate (as elemental iron) 45 mg oral tablet, extended release 45 mg = 1 tab(s), Oral, Daily, # 30 tab(s), 0 Refill(s) Start Date: 12/03/22 Status: Ordered finasteride 5 mg oral tablet 5 mg = 1 tab(s), Oral, Daily, # 30 tab(s), 0 Refill(s) Start Date: 12/03/22 Status: Ordered furosemide 20 mg oral tablet 40 mg = 2 tab(s), Oral, Daily, # 30 tab(s), 0 Refill(s) Start Date: 12/03/22 Status: Ordered Lantus 100 units/mL subcutaneous solution 10 unit(s), Subcutaneous, Once a day (at bedtime), # 10 mL, 0 Refill(s) Start Date: 12/03/22 Status: Ordered levothyroxine 50 mcg (0.05 mg) oral tablet 50 mcg = 1 tab(s), Oral, Daily, # 30 tab(s), 0 Refill(s) Start Date: 12/03/22 Status: Ordered lisinopril 5 mg oral tablet 5 mg = 1 tab(s), Oral, Daily, # 30 tab(s), 0 Refill(s) Start Date: 12/03/22 Status: Ordered lovastatin 20 mg oral tablet 20 mg = 1 tab(s), Oral, Daily, # 30 tab(s), 0 Refill(s) Start Date: 12/03/22 Status: Ordered metFORMIN 1000 mg oral tablet 1,000 mg = 1 tab(s), Oral, BID, # 60 tab(s), 0 Refill(s) Start Date: 12/03/22 Status: Ordered metoprolol succinate 100 mg oral tablet, extended release 100 mg = 1 tab(s), Oral, Daily, # 30 tab(s), 0 Refill(s) Start Date: 12/03/22 Status: Ordered multivitamin 2 tab(s), Oral, Daily, 0 Refill(s) Start Date: 12/03/22 Status: Ordered nystatin 100,000 units/g topical cream 1 dragan, TOP, BID, # 15 gm, 0 Refill(s) Start Date: 12/03/22 Status: Ordered Easton-3 1000 mg oral capsule 1,000 mg = 1 cap(s), Oral, Daily, 0 Refill(s) Start Date: 12/03/22 Status: Ordered semaglutide 7 mg oral tablet 7 mg = 1 tab(s), Oral, Daily, 0 Refill(s) Start Date: 12/03/22 Status: Ordered tamsulosin 0.4 mg oral capsule 0.4 mg = 1 cap(s), Oral, Daily, # 30 cap(s), 0 Refill(s) Start Date: 12/03/22 Status: Ordered Vitamin C 1000 mg oral tablet 1,000 mg = 1 tab(s), Oral, Daily, # 30 tab(s), 0 Refill(s) Start Date: 12/03/22 Status: Ordered Mental Status 12/10/22 Sensory Perception Romero Slightly limit ed Level [...] Results Laboratory List Name Date Glucose POC1 12/10/22 Blood Glucose Monitoring POC 12/10/22 Glucose POC1 12/10/22 Blood Glucose Monitoring POC 12/10/22 Glucose POC1 12/10/22 Blood Glucose Monitoring POC 12/09/22 Urinalysis, Culture if Indicated 12/07/22 Urine Microscopic 12/07/22 Culture Urine DH 12/07/22 SARS CoV-2 DH 12/06/22 .Hemogram DH (CBC DH) 12/05/22 Basic Metabolic Panel DH (BMP DH) 12/05/22 .Hemogram DH (CBC DH) 12/04/22 Basic Metabolic Panel DH (BMP DH) 3 HA1C DH (Hemoglobin A1C DH) 12/04/22 Magnesium DH 12/04/22 Culture Urine DH 12/04/22 Urine Microscopic, Culture if Indicated 12/04/22 Most recent to oldest [Reference Range]: 1 2 3 Anion Gap DH [5-15 mmol/L] 12 mmol/L (12/05/22 5:55 AM) 13 mmol/L (12/04/22 5:15 AM) Chloride Lvl DH [98-107 mmol/L] 109 mmol/L *HI* (12/05/22 5:55 AM) 111 mmol/L *HI* (12/04/22 5:15 AM) CO2 DH [22-31 mmol/L] 20 mmol/L *LOW* (12/05/22 5:55 AM) 19 mmol/L *LOW* (12/04/22 5:15 AM) Est GFR DH [>=60 mL/min/1.73 m2] 38 mL/min/1.73 m2 1 *LOW* (12/05/22 5:55 AM) 42 mL/min/1.73 m2 2 *LOW* (12/04/22 5:15 AM) Glucose Lvl DH [65-99 mg/dL] 115 mg/dL *HI* (12/05/22 5:55 AM) 170 mg/dL *HI* (12/04/22 5:15 AM) Potassium Lvl DH [3.5-5.0 mmol/L] 4.0 mmol/L (12/05/22 5:55 AM) 3.8 mmol/L (12/04/22 5:15 AM) Sodium Lvl DH [135-145 mmol/L] 141 mmol/L (12/05/22 5:55 AM) 143 mmol/L (12/04/22 5:15 AM) Urine Culture Prelim DH Produced by [facility] Reporting XR . Preliminary Report [] Verified: 12/06/2022 08:46 EST Greater than 100,000 cfu/ml Yeast Identification to follow. Order Comments f1: Urine Culture (Culture Urine DH) Urine Culture ordered as a result of microscopic findings. *NA* (12/04/22 1:41 AM) Urine Culture DH Produced by Clinical Reporting XR . Final Report [] Verified: 12/08/2022 12:04 EST Greater than 100,000 cfu/ml Beta Hemolytic Streptococci, Group B Susceptibility testing not routinely performed for Coagulase Negative Staphylococcus species and other Gram Positive organisms from urine. 1,000-9,000 cfu/ml mixed mucosal red Order Comments f1: Urine Culture (Culture Urine DH) Urine Culture ordered as a result of microscopic findings. *NA* (12/07/22 9:35 AM) Produced by Clinical Reporting XR . Final Report [] Verified: 12/06/2022 10:23 EST Greater than 100,000 cfu/ml Roxy glabrata Preliminary Report [] Verified: 12/06/2022 08:46 EST Greater than 100,000 cfu/ml Yeast Identification to follow. Order Comments f1: Urine Culture (Culture Urine DH) Urine Culture ordered as a result of microscopic findings. *NA* (12/04/22 1:41 AM) UA Crystals [None Seen] None Seen (12/04/22 1:30 AM) BUN DH [10-20 mg/dL] 37 mg/dL *HI* (12/05/22 5:55 AM) 35 mg/dL *HI* (12/04/22 5:15 AM) Calcium Lvl DH [8.5-10.5 mg/dL] 8.6 mg/dL (12/05/22 5:55 AM) 8.7 mg/dL (12/04/22 5:15 AM) Magnesium Lvl DH [0.69-1.07 mmol/L] 0.82 mmol/L (12/04/22 5:15 AM) Urine Culture? Yes (12/07/22 10:10 AM) Yes (12/04/22 1:30 AM) UA Casts [None] None (12/04/22 1:30 AM) Creatinine [0.80-1.50 mg/dL] 1.85 mg/dL *HI* (12/05/22 5:55 AM) 1.72 mg/dL *HI* (12/04/22 5:15 AM) UA Bacteria [None /HPF] Many /HPF 3 *ABN* (12/07/22 10:10 AM) Moderate /HPF *ABN* (12/04/22 1:30 AM) UA Bili [Negative] Negative *NA* (12/07/22 10:10 AM) UA Blood [Negative] Large *ABN* (12/07/22 10:10 AM) UA Color [Yellow] Straw *NA* (12/07/22 10:10 AM) UA Glucose [Negative mg/dL] Negative mg/dL *NA* (12/07/22 10:10 AM) UA Ketones [Negative] Negative *NA* (12/07/22 10:10 AM) UA Leuk Est [Negative] Moderate *ABN* (12/07/22 10:10 AM) UA Mucous [None /HPF] Moderate /HPF *ABN* (12/07/22 10:10 AM) None /HPF (12/04/22 1:30 AM) UA Nitrite [Negative] Negative (12/07/22 10:10 AM) UA Protein [Negative] 100 *ABN* (12/07/22 10:10 AM) UA RBC [0-3] 50+ *ABN* (12/07/22 10:10 AM) UA RBC [0-3 /HPF] 10 /HPF *HI* (12/04/22 1:30 AM) UA Renal Epi [0-1 /HPF] 0 /HPF (12/04/22 1:30 AM) UA Sperm Not Present (12/04/22 1:30 AM) UA Urobilinogen [0.00-1.99 Eu/dL] 0.20 Eu/dL (12/07/22 10:10 AM) UA WBC [0-3] 50+ *ABN* (12/07/22 10:10 AM) UA WBC [0-3 /HPF] >100 /HPF *HI* (12/04/22 1:30 AM) UA pH [5.0-9.0] 5.5 (12/07/22 10:10 AM) UA Spec Grav [1.002-1.030] 1.020 (12/07/22 10:10 AM) Micro? Yes (12/07/22 10:10 AM) UA Clarity [Clear] Cloudy *ABN* (12/07/22 10:10 AM) Glucose POC [65-99 mg/dL] 276 mg/dL *HI* (12/10/22 2:51 PM) 219 mg/dL *HI* (12/10/22 11:04 AM) 163 mg/dL *HI* (12/10/22 7:25 AM) UA Squam Epi [0-4 /HPF] 3 /HPF (12/04/22 1:30 AM) UA Amorph [None Seen /HPF] Few Urates /HPF *ABN* (12/04/22 1:30 AM) Hct DH [40.5-48.5 %] 30.3 % *LOW* (12/05/22 5:55 AM) 29.7 % *LOW* (12/04/22 5:15 AM) Hgb DH [13.7-16.5 g/dL] 9.5 g/dL *LOW* (12/05/22 5:55 AM) 9.6 g/dL *LOW* (12/04/22 5:15 AM) MCHC DH [32.0-35.7 g/dL] 31.4 g/dL *LOW* (12/05/22 5:55 AM) 32.3 g/dL (12/04/22 5:15 AM) MCH DH [27.5-32.1 pg] 27.0 pg *LOW* (12/05/22 5:55 AM) 27.3 pg *LOW* (12/04/22 5:15 AM) MCV DH [82.9-93.1 fL] 86.1 fL (12/05/22 5:55 AM) 84.4 fL (12/04/22 5:15 AM) MPV DH [7.6-12.9 fL] 8.8 fL (12/05/22 5:55 AM) 9.0 fL (12/04/22 5:15 AM) Platelet DH [145-357 x10(3)/mcL] 235 x10(3)/mcL (12/05/22 5:55 AM) 249 x10(3)/mcL (12/04/22 5:15 AM) RBC DH [4.58-5.54 x10(6)/mcL] 3.52 x10(6)/mcL *LOW* (12/05/22 5:55 AM) 3.52 x10(6)/mcL *LOW* (12/04/22 5:15 AM) RDWCV DH [11.4-13.8 %] 17.1 % *HI* (12/05/22 5:55 AM) 17.2 % *HI* (12/04/22 5:15 AM) RDWSD DH [36.0-45.0 fL] 53.1 fL *HI* (12/05/22 5:55 AM) 52.6 fL *HI* (12/04/22 5:15 AM) WBC DH [4.0-9.5 x10(3)/mcL] 8.3 x10(3)/mcL (12/05/22 5:55 AM) 9.4 x10(3)/mcL (12/04/22 5:15 AM) Blood Glucose, Capillary POC [65-99 mg/dL] 219 mg/dL *HI* (12/10/22 11:19 AM) 163 mg/dL *HI* (12/10/22 7:31 AM) 192 mg/dL *HI* (12/09/22 7:43 PM) SARS-CoV-2 (COVID-19) RNA DH [Not Detected] Not Detected 4 *NA* (12/06/22 11:24 AM) SARS-CoV-2 (COVID-19) RNA Source DH Nasal 5 *NA* (12/06/22 11:24 AM) Hgb A1c DH [4.3-5.6 %] 10.2 % 6 *HI* (12/04/22 5:15 AM) eAG DH See note mg/dL 7 *NA* (12/04/22 5:15 AM) 1Result Comment: This patient's estimated GFR was [...] symptoms in addition to eGFR. 3Result Comment: Few yeast seen. 4Result Comment: This result should be interpreted in combination with the clinical observations, patient history and epidemiological information in making a final diagnosis. For testing of asymptomatic individuals, assay performance characteristics and clinical utility have not been evaluated. Testing for SARS-CoV-2 (Severe acute respiratory syndrome coronavirus 2, formerly known as 2019 novel coronavirus or 2019-nCoV) to aid in the diagnosis of COVID-19 is performed using the [employer] m SARS-CoV-2 Assay as authorized by the FDA Emergency Use Authorization (EUA). This EUA assay is intended for In-vitro Diagnostic (IVD) use with respiratory specimens such as nasopharyngeal swabs collected from individuals during the acute phase of infection. This assay is performed based on the instructions for use provided by [employer] and additional guidance provided by CDC and FDA. Testing is performed in the [facility] within the Department of Pathology and Laboratory Medicine at [facility], certified under the Clinical Laboratory Improvement Amendments of 1988 (CLIA), 42 U.S.C. 263a, to perform high complexity tests. Assay performance has been verified according to clinical laboratory regulatory requirements for use with specimens collected from individuals suspected of COVID-19. Test results are provided above. A result of Not Detected indicates that the viral RNA target is not present above the limit of detection, but does not preclude SARS-CoV-2 infection. False negative results may occur if a specimen is improperly collected, transported or handled; if amplification inhibitors are present; or if inadequate numbers of viral particles are present in the specimen. When a diagnostic test is negative, the possibility of a false negative result should be considered in the context of a patient's recent exposures and the presence of clinical signs and symptoms consistent with COVID-19. A result of Detected indicates that RNA from SARS-CoV-2 was detected and the patient is infected. As required or requested by public health authorities, positive specimens may be sent for additional testing. Positive and negative predictive values for this test are highly dependent on disease prevalence. A result of Invalid indicates that neither the viral RNA targets nor the internal control target was detected. An invalid result suggests the presence of inhibitors. Recollection and re-testing is recommended in the case of an invalid result. CDC COVID-19 criteria for testing on human specimens and clinical management guidance information are available at the CDC Coronavirus Disease 2019 (COVID-19) webpage under Information for Healthcare Professionals (https://www.cdc.gov/coronavirus/2019-ncov/hcp/index.html) Additional information about this and other EUA tests can be found in provider and patient fact sheets at the following FDA website: https://www.fda.gov/medical-devices/otwlcjvknrj-uxlvtxg-9637-arrpa-52-wtlvftqax- txn-uexmcedqqecleg-dyojdst-devices/qmiih-vfqpgyhwxpa-elsx Test performed at: [facility], [place] [address] 5Result Comment: Test performed at: [facility], [place] [address] 6Result Comment: Reference Range: 4.3 - 5.6% 5.7 - 6.4% - Increased Risk of Developing Diabetes Mellitus >= 6.5% - Consistent with diagnosis of Diabetes Mellitus In the absence of hyperglycemia (i.e. plasma glucose > 200 mg/dL) or classic symptoms of hyperglycemia a repeat measurement of HbA1c should be performed on a separate sample to confirm the diagnosis. Diagnosis and Classification of Diabetes Mellitus, Diabetes Care 2013; 36: Suppl. 1, S67-49 Test performed at: [facility], [place] [address] 7Result Comment: Estimated Average Glucose not appropriate for patients over 70 years of age. eAG equivalents for HbA1c percentages: HbA1c(%) eAG(mg/dL) 6.0 126 6.5 140 7.0 154 7.5 169 8.0 183 8.5 197 9.0 212 9.5 226 10.0 240 Limitations: The eAG calculation has not been validated on women, individuals below 18 years old and above 70 years old, and individuals with hemoglobinopathies. Additional resources are available on the ADA website. Keyon MACHADO, Buddy J, Maynor R, et al. Translating the A1C assay into estimated average glucose values. Diabetes Care 2008:31(8):9988-8992. Test performed at: [facility], [place] [address] Vital Signs Most recent to oldest [Reference Range]: 1 2 3 Temperature Axillary [35.2-36.7 DegC] 36.3 DegC (12/06/22 6:38 AM) 37.1 DegC *HI* (12/05/22 5:03 AM) 36.1 DegC (12/04/22 10:09 PM) Temperature Oral [35.8-37.3 DegC] 36.7 DegC (12/10/22 12:06 PM) 36.9 DegC (12/10/22 7:48 AM) 37.1 DegC (12/10/22 5:51 AM) Temperature Oral (DegF) 98.24 DegF (12/06/22 11:19 AM) 98.42 DegF (12/06/22 7:31 AM) 97.16 DegF (12/05/22 8:49 PM) Temperature Temporal Artery [36.3-37.8 DegC] 36.5 DegC (12/09/22 11:50 AM) 36.6 DegC (12/09/22 4:00 AM) 36.6 DegC (12/08/22 9:30 PM) Temperature Temporal Artery (DegF) 97.88 DegF (12/08/22 1:35 PM) 97.88 DegF (12/06/22 8:25 PM) 99.32 DegF (12/06/22 3:42 PM) Apical Heart Rate [60-100 bpm] 84 bpm (12/03/22 5:06 PM) Peripheral Pulse Rate [60-100 bpm] 69 bpm (12/10/22 12:06 PM) 87 bpm (12/10/22 7:48 AM) 97 bpm (12/10/22 5:51 AM) Respiratory Rate [14-20 br/min] 18 br/min (12/10/22 12:06 PM) 20 br/min (12/10/22 7:48 AM) 16 br/min (12/10/22 5:51 AM) Blood Pressure [90-140/60-90 mmHg] 121/77mmHg (12/10/22 7:48 AM) 127/67mmHg (12/10/22 5:51 AM) Systolic Blood Pressure [90-140 mmHg] 103 mmHg (12/10/22 12:06 PM) Diastolic Blood Pressure [60-90 mmHg] 59 mmHg *LOW* (12/10/22 12:06 PM) Mean Arterial Pressure, Cuff [70-110 mmHg] 74 mmHg (12/10/22 12:06 PM) 99 mmHg (12/09/22 9:14 PM) 102 mmHg (12/09/22 6:26 PM) Mean Arterial Pressure Cuff-Monitor 100 mmHg (12/07/22 4:30 PM) 87 mmHg (12/07/22 11:30 AM) 109 mmHg (12/07/22 8:25 AM) BP Site Left arm (12/10/22 12:06 PM) Left arm (12/10/22 7:48 AM) Left arm (12/10/22 5:51 AM) FIO2 21 % (12/03/22 10:24 PM) SpO2 [92-100 %] 97 % (12/10/22 7:48 AM) 95 % (12/10/22 5:51 AM) 95 % (12/09/22 11:43 PM) SpO2 Location Left hand (12/10/22 7:48 AM) Right hand (12/09/22 4:00 AM) Right hand (12/09/22 12:19 AM) BP Method Automatic (12/10/22 12:06 PM) Automatic (12/10/22 7:48 AM) Automatic (12/10/22 5:51 AM) Height 175.000 cm (12/03/22 5:06 PM) 175.3 cm (12/03/22 5:00 PM) Height/Length Measured (inches) 69 in (12/03/22 5:00 PM) Height/Length Estimated 175.3 cm (12/03/22 5:00 PM) Height/Length Dosing 175 cm (12/03/22 5:06 PM) 175.000 cm (12/03/22 5:06 PM) 175 cm (12/03/22 5:06 PM) Weight 97.900 kg (12/03/22 5:06 PM) 97.9 kg (12/03/22 5:00 PM) Weight Measured (lbs) 215.832 lb (12/03/22 5:00 PM) Weight Estimated 97.9 kg (12/03/22 5:00 PM) Weight Dosing 97.9 kg (12/03/22 5:06 PM) 97.900 kg (12/03/22 5:06 PM) 97.9 kg (12/03/22 5:06 PM) Scale Type Bed (12/03/22 5:00 PM) BSA Measured 2.18 m2 (12/03/22 5:00 PM) BSA Estimated 2 m2 (12/03/22 5:00 PM) Body Mass Index Estimated 31.86 kg/m2 (12/03/22 5:00 PM) Body Mass Index 31.970 kg/m2 (12/03/22 5:06 PM) 31.86 kg/m2 (12/03/22 5:00 PM) Social History Social History Type Response Tobacco Never tobacco user T obacco Use:. 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 Carmelo Barr - who patient lives with Luther - youngest son Discussed referral sent to Acute Rehab. Patient ambulated slowly (related to knee replacement) with cane prior to stroke. Sons report he was mostly independent with ADLs. older worker specialist [facility] is Becky at [phone] Talked about possible referral to [facility] for swing if needed. * Odalis Barber: PERFORM Event Display: Case Management Note Authored Date: [id number] Patient accepted to Acute Rehab if insurance auth can be obtained.15 pages of updated notes faxed to Xenia at [facility] * Odalis Barber: PERFORM Event Display: Case Management Note Authored Date: Call from Xenia at [facility]. CM confirmed patient admitted 12/03. Requested updated notes. 28 pages faxed to [phone] * Odalis Barber: MODIFY, PERFORM Event Display: Case Management Note Authored Date: Report written from chart review, MD report, & family interview. CM met with patient & sons (Carmelo & Dora). 71 y/o M with ?dementia/cognitive impairment, chronic Afib on Eliquis, T2DM, HTN, HLD, CARLOS A on CPAP,BPH, iron def anemia, CKD unknown stage, venous insufficiency, and questionable medication compliance at home who presented to [facility] ED and now found to be completely aphasic with variable motor movements from acute right cerebellar and left frontoparietal infarcts. Suspect possibly embolic in origin due to possibly medication nonadherence at home (outside ED documentation says that PCP called andreported patient was noncompliant with medications with his history of dementia). Initial NIH score on presentation to [facility] was 29 in ED documentation (though they reported difficult to assess due to patient's aphasia and lack of participation). Patient's NIH score currently appears to be 13 (accounting for his aphasia making some elements difficult to test). He was out of the window for TPA at outside ED (last known well 9pm evening before). Neurology (Dr. Dominguez) was consulted by phone at [facility] and recommended resuming his apixaban as long as no contraindication givenquestion of compliance with apixaban. Due to lack of beds at [facility] and in [facility] system, patient was transferred to [facility] for further acute inpatient management of acute stroke. # Right cerebellar infarct and Left frontoparietal infarct # Aphasia - Continue apixaban 5 mg BID - TTE tomorrow - Telemetry overnight - [facility] Neuro consult - Permissive HTN x 1 week - Will try to upload outside images to PACS (CT, CTA, MRI were done at [facility]) - PT/OT/COMPUTER LABORATORY TECHNICIAN # Afib - Continue Diltiazem and Metoprolol at home doses - Eliquis 5 mg BID # HTN - Holding furosemide and lisinopril for permissive HTN # T2DM - Continue home Lantus 10 units QPM, may need to titrate - Check hba1c - SSI to follow - Holding semaglutide and dapagliflozin # ?CKD - Cr 1.9 at [facility] ED, unknown baseline, will need to get records from PCP - Repeat BMP in AM - Hold furosemide and lisinopril for now # Hx iron def anemia - Continue iron supp - Unknown Hb baseline - Repeat in AM Code status: No CPR but ok for short term intubation if condition reversible Medical DPOA: Carmelo (son) [phone] Other contact Dora (son) [phone] Son, Carmelo, provided copy of [place] AD. Copy put in chart. Patient lives with his son, Dora, in 2nd floor apartment. 12 steps up to apartment with left hand rail. Sons report patient had difficulties with stairs prior to stroke. Patient used cane occasionally before stroke. CM spoke with them about possible move to 1st floor apartment in future. Dora reports he gets paid from [email or web address] for some care provided. Dora states patient has foster care case manager thru [employer]. Uses [facility] in [place], [place] for prescriptions. Referral will be sent to [facility] for home services if needed. CM will maintain contact with family to coordinate services. Nurse Progress note * Paulette Sow: PERFORM Event Display: Progress Note-Nurse Authored Date: [id number] Pt is alert but completely non-verbal. Appears to hear well, vision adequate. Pt is able to nod hishead up and down or side to side for the 'yes / no' head rotation. Pt has given no non-verbal ques of pain. VS obtained, continued to be monitored and charted in EMR. Pt tolerates his pills crushed in applesauce. HR audible, noted irregular. Lungs auscultated, noted clear throughout. ABD is soft, non-tender. Pt's last BM was on 12/09/2022. Pt's radial and pedal pulses palpitated, noted equal and wnl. Pt has an IV in his RAC which is noted patent. Pt has an indwelling cath draining clowdy/yellowurine. Pt is incontinent of his bowels. Pt had his son in for most of the afternoon today. All of pt's needs have been met at this time. Call nadai within reach. [Electronically Signed on: 12/10/2022 14:32 EST] Paulette Sow [Verified on: 12/10/2022 14:32 EST] Paulette Sow. * Mabel Seymour, RN: PERFORM Event Display: Progress Note-Nurse Authored Date: [id number] Pt alert but is still non verbal. VSS. Thornton draining clear yellow urine. Pt taking pills crushed in apple sauce as he chewed his pills given whole. Pt nodded yes when asked if he was in pain - PRNTylenol given, see MAR. Bed alarm in place due to high fall risk. Call zuniga in reach. [Electronically Signed on: 12/10/2022 04:30 EST] Mabel Seymour RN [Verified on: 12/10/2022 04:30 EST] Mabel Seymour RN * Mabel Seymour RN: PERFORM Event Display: Progress Note-Nurse Authored Date: [id number] Pt alert but non verbal. Pt appears to be comfortable - no signs of discomfort or distress noted. VSS. Pt taking pills crushed in apple sauce as pt was chewing pills and not swallowing them. Thornton inplace draining clear yellow urine. IV in RAC, flushing well. Pt incontinent of stool - large soft/pasty. Call zuniga in reach. [Electronically Signed on: 12/09/2022 02:26 EST] Mabel Seymour RN [Verified on: 12/09/2022 02:26 EST] Mabel Seymour RN EKG study * Nava Jacobs: PERFORM Event Display: Telemetry Strips Authored Date: * Nava Jacobs: PERFORM Event Display: Telemetry Strips Authored Date: * Nava Jacobs: PERFORM Event Display: Telemetry Strips Authored Date: Neurology Consult note * Dariel Tamayo: MODIFY, PERFORM Event Display: Neurology Consultation Authored Date: MELANIE PURVIS :1950 Age:71 years Sex:Male Visit Date:12/03/2022 Primary Care Physician: Constantine Hill Reason for Consultation Stroke History of Present Illness Mr. Purvis is a??71 y/o M with??reported pmh of cognitive impairment, A. fib on eliquis (? Compliance), type 2 DM, HTN, HLD admitted at [facility] acute care as transfer from [facility] ED for acute stroke. ?? Per chart search as patient is completely aphasic- patient was found down by his son and was not speaking or moving his eyes. Was taken to [facility] ED where??neurological work up with CTH and CT angio of head/neck was unrevealing for intracranial bleed nor any large vessel occlusion. MRI was obtainedand showed restricted diffusion??in mainly??L frontoparietal regions??and a small right cerebellum.He was noted to be in A fib.?? neurology was consulted by phone. Dr. Crenshaw recommended resuming patient's apixaban as long as there is no contraindication as it appears that medication nonadherence may be playing a role.?? Patient was then transferred to [facility] acute care for further stroke care. Patient was out of tPA window. Physical Exam Vitals & Measurements T:??37.4?C ??(Temporal Artery)?? TMIN:??36.2?C ??(Oral)?? TMAX:??37.4?C ??(Temporal Artery)?? HR:??94??(Peripheral)?? RR:??19?? BP:??143/85?? SpO2:??97%?? O2 Therapy:??Room air?? Gen:?Sitting in bed without any acute distress ?? Neurologic Exam: Mental Status:?Mute- has both severe expressive and receptive aphasia Cranial Nerves:?PERRLA?sara. No ptosis, right facial droop noted.??Facial sensation unable to assess due to mentation.?? Motor:?Anti-gravity in B/L UE and LE- noted to have pronator drift in right though. Unable to give??resistance due to mental status. Sensation:?unable to assess due to mentation but did withdraw to painful stimuli in extremities. Gait:?Not done. Assessment/Plan Acute stroke involving left frontoparietal region and very small in right cerebellum, etiology likely embolic with ?non adherence with his meds (per OSH PCP), residual of severe expressive and receptive aphasia, mild right sided weakness, right facial droop and ambulatory dysfunction Diagnostics - MRI brain showed acute infarct (reviewed under PACS) - CTA Head and Neck with and without contrast??done at OSH - TTE shows dilated atria but no WMA or clot - Ziopatch not needed ?? Management - Anti-coagulant- c/t??apixaban -??C/t atorvastatin 40 mg daily - Recommend??some permissive HTN upto 160/90. After a week can do stricter control at 130/80. - C/t with PT/OT/ST - If sudden change in mental status suggest stat CT head to rule out hemorrhagic conversion ?? - Stroke FU appointment at??90 days with myself. ?? Thank you for letting me see the patient. If you have any questions or concerns please feel free tocontact me. ? Dariel Tamayo MD Neurologist Problem List/Past Medical History Ongoing Atrial fibrillation BPH (benign prostatic hyperplasia) Dementia Depression HLD (hyperlipidemia) HTN (hypertension) Iron deficiency anemia CARLOS A on CPAP Peripheral neuropathy T2DM (type 2 diabetes mellitus) Ureterolithiasis Venous insufficiency Historical No qualifying data Medications Inpatient !-DuoNeb, 3 mL, NEB, QID RT, PRN acetaminophen, 650 mg= 20.3 mL, Oral, q4hr, PRN apixaban, 5 mg= 1 tab(s), Oral, BID atorvastatin, 40 mg= 1 tab(s), Oral, Daily Dextrose 50% injection, 25 gm= 50 mL, IV Push, q15min, PRN dilTIAZem, 60 mg= 2 tab(s), Oral, q6hr ferrous sulfate, 325 mg= 1 tab(s), Oral, Daily glucagon, 1 mg= 1 vial(s), IM, Daily, PRN Humalog (Lispro) Sliding Scale Medium Dose Algorithm, Medium Dose Scale, Subcutaneous, QIDACHS insulin lispro, 4 unit(s)= 0.04 mL, Subcutaneous, TIDAC Lantus, 13 unit(s)= 0.13 mL, Subcutaneous, qPM levothyroxine, 50 mcg= 1 tab(s), Oral, Daily Metoprolol Tartrate, 50 mg= 1 tab(s), Oral, BID nystatin 100,000 units/g topical cream, 1 dragan, TOP, BID tamsulosin, 0.4 mg= 1 cap(s), Oral, Daily Home apixaban 5 mg oral tablet, 5 mg= 1 tab(s), Oral, BID Calcium 600+D, 2 tab(s), Oral, Daily cyanocobalamin 500 mcg oral tablet, 500 mcg= 1 tab(s), Oral, Daily dapagliflozin 10 mg oral tablet, 10 mg= 1 tab(s), Oral, Daily dilTIAZem 300 mg/24 hours oral capsule, extended release, 300 mg= 1 cap(s), Oral, Daily ferrous sulfate (as elemental iron) 45 mg oral tablet, extended release, 45 mg= 1 tab(s), Oral, Daily finasteride 5 mg oral tablet, 5 mg= 1 tab(s), Oral, Daily furosemide 20 mg oral tablet, 40 mg= 2 tab(s), Oral, Daily Lantus 100 units/mL subcutaneous solution, 10 unit(s), Subcutaneous, Once a day (at bedtime) levothyroxine 50 mcg (0.05 mg) oral tablet, 50 mcg= 1 tab(s), Oral, Daily lisinopril 5 mg oral tablet, 5 mg= 1 tab(s), Oral, Daily lovastatin 20 mg oral tablet, 20 mg= 1 tab(s), Oral, Daily metFORMIN 1000 mg oral tablet, 1000 mg= 1 tab(s), Oral, BID metoprolol succinate 100 mg oral tablet, extended release, 100 mg= 1 tab(s), Oral, Daily multivitamin, 2 tab(s), Oral, Daily nystatin 100,000 units/g topical cream, 1 dragan, TOP, BID Easton-3 1000 mg oral capsule, 1000 mg= 1 cap(s), Oral, Daily semaglutide 7 mg oral tablet, 7 mg= 1 tab(s), Oral, Daily tamsulosin 0.4 mg oral capsule, 0.4 mg= 1 cap(s), Oral, Daily Vitamin C 1000 mg oral tablet, 1000 mg= 1 tab(s), Oral, Daily Allergies No Known Allergies Social History Alcohol Never Electronic Cigarette/Vaping Electronic Cigarette Use: Never. Employment/School Retired Home/Environment Lives with lives with son. Nutrition/Health Regular Sexual Sexual orientation: Straight or heterosexual. Substance Abuse Never Tobacco Never tobacco user Tobacco Use:. Diagnostic Results MRI Brain, CT Head and CTA Head/Neck ?? TTE: Interpretation Summary?? Technically difficult study.?? The left ventricular size and function are normal with LVEF of 68% by Hargrove's?? biplane and no wall motion abnormalities.?? The right ventricle is moderately dilated with mildly reduced function. PASP 36 mm?? Hg (assuming RA pressure 8 mm Hg).?? The atria are severley dilated.?? There is moderate tricuspid regurgitation.?? Please see the body of report for additional details. ?? [Electronically Signed on: 12/06/2022 16:28 EST] Dariel Tamayo M.D. [Verified on: 12/06/2022 16:28 EST] Dariel Tamayo M.D. Heart * AGA CHAPMAN Brett: PERFORM Event Display: Echocardiogram Authored Date: [id number] * Nava Jacobs.: PERFORM Event Display: Echocardiogram Authored Date: History and physical note * Marizol Kamari JoseMaribell: MODIFY, MODIFY, MODIFY, MODIFY, MODIFY, PERFORM Event Display: History and Physical Authored Date: [id number] MELANIE PURVIS :1950 Age:71 years Sex:Male Primary Care Physician: Constantine Hill History of Present Illness 71 y/o M with ?dementia/cognitive impairment, chronic Afib on Eliquis, T2DM, HTN, HLD, CARLOS A on CPAP,BPH, iron def anemia, CKD unknown stage, venous insufficiency, and questionable medication compliance at home who presented to [facility] ED after being found by his son having fallen and slumped over his walker and was not speaking nor tracking with his eyes. Last known well 9pm last night. Patient was brought to [facility] ED where neurological work up with CTH and CT angio of head/neck was unrevealing forintracranial bleed nor any??large vessel occlusion. MRI was obtained and showed restricted diffusion over R cerebellar and L frontoparietal regions that represented acute infarctions.??Patient initially did not show much response in the [facility] ED. NIH score reportedly 29 (though they noted the lack of participation). He continued to remain aphasic in the ED.??Initially could not follow commands normove any of his arms or legs. Then throughout his ED course, he became more alert and began to follow some commands again. He was able to move his arms and feed himself. He passed a bedside nursing swallow evaluation. He was reported able to move his legs too on command. His gambling monitor in the ED showed persistent afib. ED provider gave patient 1/2 dose metoprolol, 1/2 dose diltiazem, and 1/2 dose lisinopril. neurology was consulted by phone. Dr. Crenshaw recommended resuming patient's apixaban as long as there is no contraindication as it appears that medication nonadherence may be playing a role. Patient lives with his son. Baseline ambulates with a walker. ?? COVID test??was negative. proBNP??7000 but no b-lines on POCUS??however ED provider did also give??IV lasix. ? Due to lack of beds at [facility] and throughout [facility] system, request for transfer was made. Patient isoutside the window for TPA. Patient will transfer here for further stroke care and management. ?? Review of Systems Constitutional:?No??fevers,??No??chills,??No??sweats?? Eye:?No??recent visual problems?? ENT:?No??ear pain,??No??nasal congestion,??No??sore throat?? Respiratory:?No??shortness of breath,??No?cough?? Cardiovascular:??No?Chest??pain?No??palpitations?No??syncope?? Gastrointestinal:?No??nausea,??No??vomiting,??No??diarrhea?? Genitourinary:?No??hematuria Berhane/Lymph:??No??bruising tendency,??No??swollen lymph glands?? Endocrine:?No??excessive thirst,??No??excessive hunger?? Musculoskeletal:No??back pain,??No??neck pain,??No??joint pain,??No??muscle pain,??No??decreased range of motion?? Integumentary:?No??rash,??No??pruritus,??No??abrasions?? Neurologic: Aphasic; alert Psychiatric:?No??anxiety,??No??depression ?? Physical Exam Gen -?NAD?? HENT -?no JVD?? Resp - breath sound??clear bilaterally Card -?irregular??rhythm,??normal rate?? ,??murmur:??none?? Abd -?nontender?,??distended by habitus??,?normoactive?? bowel sounds Ext -?no?lower??extremity?edema??bilaterally Neuro -?alert, aphasic,??no facial asymmetry, would not open mouth on command, blinks his eyes to command, eyes track and EOM seem intact, blinks??when confronted with visual threat in all visual quadrants,??nods accurately to certain questions asked, makes facial expressions that seem appropriate, moving his arms bilaterally spontaneously, able to hold both arms up for 10 secs but right arm seems to have slight drift, unable to keep lower leg off the bed for more than 5 secs but left leg able to keep up longer than right leg, patient showing no signs of withdrawal to pinprick pain in either arms or legs, reflexes 1+ at biceps and brachioradialis, unable to get patellar reflexes, upgoingBabinski on the left, downgoing Babinski on the right Skin - chronic venous stasis changes bilateral lower legs Psych -?cooperative, pleasant?? Assessment/Plan 1.??Dementia??F03.90 2.??Atrial fibrillation??I48.91 3.??Cerebellar stroke??I63.9,??Embolic stroke??I63.9 ? 71 y/o M with ?dementia/cognitive impairment, chronic Afib on Eliquis, T2DM, HTN, HLD, CARLOS A on CPAP, BPH, iron def anemia, CKD unknown stage, venous insufficiency, and questionable medication compliance at home who presented to [facility] ED and now found to be completely aphasic with variable motor movements from acute right cerebellar and left frontoparietal infarcts. Suspect possibly??embolic in origin due to possibly medication nonadherence at home (outside ED documentation says that PCP calledand reported patient was noncompliant with medications with his history of dementia). ?? Initial NIH score on presentation to [facility] was 29??in ED documentation??(though??they reported difficult to assess due to??patient's aphasia and??lack of participation). Patient's NIH score??currentlyappears to be 13 (accounting for his aphasia making some elements difficult to test). He was out ofthe window for TPA at outside ED (last known well 9pm evening before). Neurology (Dr. Dominguez)was consulted by phone at [facility] and recommended resuming his apixaban as long as no contraindicationgiven question of compliance with apixaban. ?? Due to lack of beds at [facility] and in [facility] system, patient was transferred to [facility] for further acute inpatient management of acute stroke. ?? # Right cerebellar infarct and Left frontoparietal infarct # Aphasia - Continue apixaban 5 mg BID - TTE tomorrow - Telemetry overnight - [facility] Neuro consult - Permissive HTN x 1 week - Will try to upload outside images to PACS (CT, CTA, MRI were done at [facility]) - PT/OT/COMPUTER LABORATORY TECHNICIAN ?? # Afib - Continue Diltiazem and Metoprolol at home doses - Eliquis 5 mg BID ?? # HTN - Holding furosemide and lisinopril for permissive HTN ?? # T2DM - Continue home Lantus 10 units QPM, may need to titrate - Check hba1c - SSI to follow - Holding semaglutide and dapagliflozin ?? # ?CKD - Cr 1.9 at [facility] ED, unknown baseline, will need to get records from PCP - Repeat BMP in AM - Hold furosemide and lisinopril for now ?? # Hx iron def??anemia - Continue iron supp - Unknown Hb baseline - Repeat in AM ?? Code status:??No CPR but ok for short term intubation if condition reversible Medical DPOA: Carmelo (son) [phone] Other contact Dora (son) [phone] ?Based on the presentation, clinical findings and plan of care, I certify as the attending physician, that this patient will require an acute inpatient stay of greater than 2 midnights. It is reasonably expected that the patient will be discharged or transferred to a hospital within 96 hours [facility] Problem List/Past Medical History Ongoing Atrial fibrillation BPH (benign prostatic hyperplasia) Dementia Depression HLD (hyperlipidemia) HTN (hypertension) Iron deficiency anemia CARLOS A on CPAP Peripheral neuropathy T2DM (type 2 diabetes mellitus) Ureterolithiasis Venous insufficiency Historical No qualifying data Medications Inpatient apixaban, 5 mg= 1 tab(s), Oral, BID atorvastatin, 40 mg= 1 tab(s), Oral, Daily Dextrose 50% injection, 25 gm= 50 mL, IV Push, q15min, PRN dilTIAZem, 300 mg, Oral, Daily glucagon, 1 mg= 1 vial(s), IM, Daily, PRN Humalog (Lispro) Sliding Scale Low Dose Algorithm, Low Dose SCALE, Subcutaneous, QIDACHS Lantus, 10 unit(s)= 0.1 mL, Subcutaneous, qPM metoprolol, 100 mg= 1 tab(s), Oral, Daily Home apixaban 5 mg oral tablet, 5 mg= 1 tab(s), Oral, BID dapagliflozin 10 mg oral tablet, 10 mg= 1 tab(s), Oral, Daily dilTIAZem 300 mg/24 hours oral capsule, extended release, 300 mg= 1 cap(s), Oral, Daily finasteride 5 mg oral tablet, 5 mg= 1 tab(s), Oral, Daily furosemide 20 mg oral tablet, 40 mg= 2 tab(s), Oral, Daily Lantus 100 units/mL subcutaneous solution, 10 unit(s), Subcutaneous, Once a day (at bedtime) lisinopril 5 mg oral tablet, 5 mg= 1 tab(s), Oral, Daily lovastatin 20 mg oral tablet, 20 mg= 1 tab(s), Oral, Daily metFORMIN 1000 mg oral tablet, 1000 mg= 1 tab(s), Oral, BID metoprolol succinate 100 mg oral tablet, extended release, 100 mg= 1 tab(s), Oral, Daily semaglutide 7 mg oral tablet, 7 mg= 1 tab(s), Oral, Daily Allergies No Known Allergies Lab Results WBC 10.5 Hb 10.1 HCt 31.3 Plt 244 Germán pH 7.39 pCO2 31 Cr 1.9 BUN 37 Ca 8.6 K 4.5 Na 139 Alb 2.9 CO2 20.6 AST 16 ALT 26 Alk Phos 121 Trop I <50 proBNP 7496 UA??>50WBC COVID neg ?? Diagnostic Results CT head report from [facility] says no intracranial bleed. ?? CTA angio head/neck without intracranial occlusion or stenosis. ?? MRI brain showing 2 areas of restricted diffusion in the right cerebellum and left frontal parietal watershed areas. ?? ECG Outside hospital EKG shows Afib [Electronically Signed on: 12/03/2022 17:49 EST] Ip, Kamari S. M.Kian. [Electronically Signed on: 12/03/2022 17:50 EST] Ip, Kamari S. M.D. [Electronically Signed on: 12/04/2022 07:52 EST] Ip, Kamari S. M.D. [Verified on: 12/03/2022 17:49 EST] Ip, Kamari S. M.Kian. Progress note * Tiny Gomes MD: PERFORM, MODIFY, SIGN, VERIFY Event Display: Progress Note-Physician Authored Date: [id number] Patient: MELANIE PURVIS Age: 71 years Sex: Male : 1950 Associated Diagnoses: None Author: Tiny Gomes MD Health Status Allergies: Allergic Reactions (All) No Known Allergies, Allergies (1) Active Severity Reaction No Known Allergies None Documented Current medications: (Selected) Inpatient Medications Ordered !-DuoNeb: [...] day (at bedtime), 10 mL, 0 Refill(s) Easton-3 1000 mg oral capsule: 1,000 mg = [...] cap(s), Oral, Daily, 30 cap(s), 0 Refill(s) Objective VS/Measurements Vital Signs 12/10/2022 15:00 EST Temperature Oral 36.4 DegC Peripheral Pulse Rate 69 bpm Respiratory Rate 18 br/min Systolic Blood Pressure 143 mmHg HI Diastolic Blood Pressure 78 mmHg BP Site Left leg 12/10/2022 12:06 EST Temperature Oral 36.7 DegC [...] SpO2 Location Right hand BP Method Automatic Aphasic, calm in NAD and nodding to to yes/no questions RRR with mild BERONICA CTAB No new focal deficits Impression and Plan Assessment/Plan 1. Dementia F03.90 2. Atrial fibrillation I48.91 3. Cerebellar stroke I63.9, Embolic stroke I63.9 71 y/o M with ?dementia/cognitive impairment, chronic Afib on Eliquis, T2DM, HTN, HLD, CARLOS A on CPAP,BPH, iron def anemia, CKD unknown stage, venous insufficiency, and questionable medication compliance at home who presented to [facility] ED and now found to be completely aphasic with variable motor movements from acute right cerebellar and left frontoparietal infarcts. Suspect possibly embolic in origin due to possibly medication nonadherence at home (son confirmed that noncompliance has been an issue at home). Initial NIH score on presentation to [facility] was 29 in ED documentation (though they reported difficult to assess due to patient's aphasia and lack of participation). Patient's NIH score here at [facility] was13 (accounting for his aphasia making some elements difficult to test). He was out of the window for TPA at outside ED (last known well 9pm evening before). Neurology (Dr. Dominguez) was consultedby phone at [facility] and recommended resuming his apixaban as long as no contraindication given question of compliance with apixaban. Due to lack of beds at [facility] and in [facility] system, patient was transferred to [facility] for further acute inpatient management of acute stroke. Patient has severe receptive and expressive aphasia. The pt needing moderate assist x2 for mobilitywith a lot of cueing (due to receptive and expressive aphasia). Shows R inattention and lack of safety awareness. Would benefit from rehab given severity of deficits. Working with SW/CM to determine next level of care for rehab. 12/09/2022- BP has increased. Awaiting insurance auth for possible acute rehab approval . # Right cerebellar infarct and Left frontoparietal infarct # Receptive and Expressive Aphasia - Resumed and continued apixaban 5 mg BID - TTE shows normal LVEF, mod TR, dilated atria, mild pulm HTN - Telemetry showing chronic Afib - Apprec Neuro recs. Outpatient FUV 90 days. 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 See their ongoing notes # Afib - Continue Diltiazem and Metoprolol but converted to short acting doses for now as patient is chewing the capsules/tablets - Continue Eliquis 5 mg BID # HTN - Holding furosemide and lisinopril for permissive HTN up to systolic 160 and BP beginnig to creep up but still in the period of permissive HTN and not over 160 systolic so will recheck tomorrow and decide whether to restart lisinopril. # T2DM - BGs elevated significantly on admission, but much better with adjustments below - Hba1c 10% suggesting poor control and noncompliance at home - Increased Lantus to 13 units QPM and introduced 4 units lispro TID with meals and glucoses now running 105-200 with most below 180 but did have glucose 257 yesterday PM so will continue to watch closely. - Medium scale SSI to follow - Holding home semaglutide and dapagliflozin for now while inpatient # CKD stage 3 - Cr 1.9 at [facility] ED, baseline Cr 1.9-2 per PCP records, Cr 1.8 currently. - Hold furosemide and lisinopril for now for permissive HTN # Pos UA # Urinary retention - Unclear he has sx since he is aphasic). No fever or leucocytosis. - Roxy in urine which typically represents colonization in many cases. Repeat UA pending. - cw Flomax # Hx iron def anemia - Continue home iron supp - Hb 10.1 ->9.6 -> 9.5 -- stable - Hb baseline 10 per PCP records Code status: No CPR but ok for short term intubation if condition reversible Medical DPOA: Carmelo (son) [phone] Other contact Dora (son) [phone] [Electronically Signed on: 12/10/2022 15:30 EST] Tiny Gomes MD MD [Verified on: 12/10/2022 15:30 EST] Tiny Gomes MD MD * Wally Daniels MD: PERFORM Event Display: Progress Note-Physician Authored Date: [id number] MELANIE PURVIS :1950 Age:71 years Sex:Male Visit Date:12/03/2022 Primary Care Physician: Constantine Hill Subjective Sitting in??bathroom??getting washed up ??in NAD. No overnight events. Aphasic. Not following commands. BP higher this AM.?? Review of Systems No fevers, vomiting or hypoxia. Objective Vitals & Measurements T:??36.5?C ??(Temporal Artery)?? TMIN:??36.5?C ??(Temporal Artery)?? TMAX:??36.6?C ??(Temporal Artery)?? HR:??63??(Peripheral)?? RR:??15?? BP:??124/82?? SpO2:??97%?? O2 Therapy:??Room air?? Physical Exam Gen -?NAD?? HENT -?no JVD?? Resp - breath sound??clear bilaterally??anteriorly Card -?irregular??rhythm,??normal rate?? ,??murmur:??none?? - thornton catheter in place Neuro -?alert, complete expressive and receptive aphasia?? Assessment/Plan 1.??Dementia??F03.90 2.??Atrial fibrillation??I48.91 3.??Cerebellar stroke??I63.9,??Embolic stroke??I63.9 71 y/o M with ?dementia/cognitive impairment, chronic Afib on Eliquis, T2DM, HTN, HLD, CARLOS A on CPAP,BPH, iron def anemia, CKD unknown stage, venous insufficiency, and questionable medication compliance at home who presented to [facility] ED and now found to be completely aphasic with variable motor movements from acute right cerebellar and left frontoparietal infarcts. Suspect possibly??embolic in origin due to possibly medication nonadherence at home (son confirmed that noncompliance has been an issue at home). ?? Initial NIH score on presentation to [facility] was 29??in ED documentation??(though??they reported difficult to assess due to??patient's aphasia and??lack of participation). Patient's NIH score??here at [facility] was??13 (accounting for his aphasia making some elements difficult to test). He was out of the window for TPA at outside ED (last known well 9pm evening before). Neurology (Dr. Dominguez) was consulted by phone at [facility] and recommended resuming his apixaban as long as no contraindication given question of compliance with apixaban. ?? Due to lack of beds at [facility] and in [facility] system, patient was transferred to [facility] for further acute inpatient management of acute stroke. ?? Patient has severe receptive and expressive aphasia. The pt needing moderate assist x2 for mobilitywith a lot of cueing (due to receptive and expressive aphasia). Shows R inattention and lack of safety awareness. Would benefit from rehab given severity of deficits. Working with SW/CM to determine??next level of care for rehab. ?? 12/09/2022- BP has increased. Seemed to be follow me more today. ?? Awaiting insurance auth for possible acute rehab approval as did not hear back on . ?? # Right cerebellar infarct and Left frontoparietal infarct # Receptive and Expressive Aphasia - Resumed and continued apixaban 5 mg BID - TTE shows normal LVEF, mod TR, dilated atria, mild pulm HTN - Telemetry showing chronic Afib - Apprec Neuro recs. Outpatient FUV 90 days. 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 See their ongoing notes ?? # Afib - Continue Diltiazem and Metoprolol but converted to short acting doses for now as patient is chewing the capsules/tablets - Continue Eliquis 5 mg BID ?? # HTN - Holding furosemide and lisinopril for permissive HTN up to systolic 160 and BP beginnig to creep up but still in the period of permissive HTN and not over 160 systolic so?? will recheck tomorrow and decide whether to restart lisinopril. ?? # T2DM - BGs elevated significantly on admission,??but much??better with adjustments below - Hba1c 10% suggesting poor control and noncompliance??at home - Increased Lantus to 13 units QPM and introduced 4 units lispro TID with meals and glucoses now running 105-200 with most below 180 but did have glucose 257 yesterday PM so will continue to watch closely. - Medium scale SSI to follow - Holding home semaglutide and dapagliflozin for now while inpatient ?? # CKD stage 3 - Cr 1.9 at [facility] ED, baseline Cr 1.9-2 per PCP records, Cr??1.8 currently. - Hold furosemide and lisinopril for now for permissive HTN ?? # Pos UA # Urinary retention - Unclear he has sx since he is aphasic). No fever or leucocytosis. - Roxy in urine which typically represents colonization in many cases. Repeat UA still pos . If persistent, then we should pursue US imaging for renal involvement and consider treating. - cw Flomax ?? # Hx iron def??anemia - Continue home??iron supp - Hb 10.1 ->9.6 ->??9.5 -- stable -??Hb baseline 10 per PCP records ? Code status:??No CPR but ok for short term intubation if condition reversible Medical DPOA: Carmelo (son) [phone] Other contact Dora (son) [phone] [Electronically Signed on: 12/09/2022 15:36 EST] Wally Daniels MD, MD [Verified on: 12/09/2022 15:36 EST] Wally Daniels MD, MD * Wally Daniels MD: PERFORM Event Display: Progress Note-Physician Authored Date: [id number] MELANIE PURVIS :1950 Age:71 years Sex:Male Visit Date:12/03/2022 Primary Care Physician: Constantine Hill Subjective Sitting in chair in NAD. No overnight events. Aphasic. Not following commands. Review of Systems No fevers, vomiting or hypoxia. Objective Vitals & Measurements Temperature?36.6 ?(04:44) Systolic Blood Pressure??134? Diastolic Blood Pressure??81? Pulse?76 ?(04:44) SpO2?98 ?(04:44) Respiratory Rate?16 ?(04:44) ?? Physical Exam Gen -?NAD?? HENT -?no JVD?? Resp - breath sound??clear bilaterally??anteriorly Card -?irregular??rhythm,??normal rate?? ,??murmur:??none?? - thornton catheter in place Ext -?trace?lower??extremity?edema??bilaterally Neuro -?alert, complete expressive and receptive aphasia,??some spontaneous movements of upper and lower extremities Skin - chronic venous stasis changes in lower legs, trace edema bilateral legs?? Lab Results Last 24 Hours?? Chemistry ? Event Name?? Event Result?? Date/Time?? Glucose POC 207 mg/dL??High 12/08/22 10:48:00 ? Point of Care ? Event Name?? Event Result?? Date/Time?? Blood Glucose, Capillary POC 207 mg/dL??High 12/08/22 10:47:00 ? Assessment/Plan 1.??Dementia??F03.90 2.??Atrial fibrillation??I48.91 3.??Cerebellar stroke??I63.9,??Embolic stroke??I63.9 ?Neurology Consult 3/2 ?Management - Anti-coagulant- c/t??apixaban -??C/t atorvastatin 40 mg daily - Recommend??some permissive HTN upto 160/90. After a week can do stricter control at 130/80. - C/t with PT/OT/ST - If sudden change in mental status suggest stat CT head to rule out hemorrhagic conversion - Stroke FU appointment at??90 days with myself. ?[2] Assessment/Plan 1.??Dementia??F03.90 ?? 2.??Atrial fibrillation??I48.91 ?? 3.??Cerebellar stroke??I63.9,??Embolic stroke??I63.9 ? 71 y/o M with ?dementia/cognitive impairment, chronic Afib on Eliquis, T2DM, HTN, HLD, CARLOS A on CPAP,BPH, iron def anemia, CKD unknown stage, venous insufficiency, and questionable medication compliance at home who presented to [facility] ED and now found to be completely aphasic with variable motor movements from acute right cerebellar and left frontoparietal infarcts. Suspect possibly??embolic in origin due to possibly medication nonadherence at home (son confirmed that noncompliance has been an issue at home). ?? Initial NIH score on presentation to [facility] was 29??in ED documentation??(though??they reported difficult to assess due to??patient's aphasia and??lack of participation). Patient's NIH score??here at [facility] was??13 (accounting for his aphasia making some elements difficult to test). He was out of the window for TPA at outside ED (last known well 9pm evening before). Neurology (Dr. Dominguez) was consulted by phone at [facility] and recommended resuming his apixaban as long as no contraindication given question of compliance with apixaban. ?? Due to lack of beds at [facility] and in [facility] system, patient was transferred to [facility] for further acute inpatient management of acute stroke. ?? Patient has severe receptive and expressive aphasia. The pt needing moderate assist x2 for mobilitywith a lot of cueing (due to receptive and expressive aphasia). Shows R inattention and lack of safety awareness. Would benefit from rehab given severity of deficits. Working with SW/DEREK to determine??next level of care for rehab. ?? Awaiting insurance auth for possible acute rehab approval as did not hear back on . ?? # Right cerebellar infarct and Left frontoparietal infarct # Receptive and Expressive Aphasia - Resumed and continued apixaban 5 mg BID - TTE shows normal LVEF, mod TR, dilated atria, mild pulm HTN - Telemetry showing chronic Afib - Apprec Neuro recs. Outpatient FUV 90 days. 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 See their ongoing notes ?? # Afib - Continue Diltiazem and Metoprolol but converted to short acting doses for now as patient is chewing the capsules/tablets - Continue Eliquis 5 mg BID ?? # HTN - Holding furosemide and lisinopril for permissive HTN up to systolic 160 and so far BP not too high. ?? # T2DM - BGs elevated significantly on admission,??but much??better with adjustments below - Hba1c 10% suggesting poor control and noncompliance??at home - Increased Lantus to 13 units QPM and introduced 4 units lispro TID with meals and glucoses now running 105-207 with most below 180. - Medium scale SSI to follow - Holding home semaglutide and dapagliflozin for now while inpatient ?? # CKD stage 3 - Cr 1.9 at [facility] ED, baseline Cr 1.9-2 per PCP records, Cr??1.8 currently. - Hold furosemide and lisinopril for now for permissive HTN ?? # Pos UA # Urinary retention - Unclear he has sx since he is aphasic). No fever or leucocytosis. - Roxy in urine which typically represents colonization in many cases. Repeat UA still pos . If persistent, then we should pursue US imaging for renal involvement and consider treating. - cw Flomax ?? # Hx iron def??anemia - Continue home??iron supp - Hb 10.1 ->9.6 ->??9.5 -- stable -??Hb baseline 10 per PCP records ? Code status:??No CPR but ok for short term intubation if condition reversible Medical DPOA: Carmelo (son) [phone] Other contact Dora (son) [phone] [Electronically Signed on: 12/08/2022 14:15 EST] Wally Daniels MD, MD [Verified on: 12/08/2022 14:15 EST] Wally Daniels MD, MD Note * Nava Jacobs: PERFORM Event Display: Admission Data Authored Date: [id number] Patient Care team information Care Team Personnel Name: Constantine Hill [facility] No Access Member Role: Informed Provider Care Team Related Persons Name: DORA PURVIS Address: Home [address] [place], [place] [id number]
--- OUTSIDE RECORDS SUMMARY | 2023-11-12 15:13 | XMS_ITS | Patient Health Record ---
Author Name Unknown [facility] Address [address] [place] [address] Care Team Providers Care Manager Green Name Role Phone EDILBERTO HEARN Primary Care Provider Unavail able Narciso Gomez Unavailable [phone] REASON FOR REFERRAL No Information SOCIAL HISTORY Tobacco Use: Social History Observation Description Date Smoking Status WARNING: Information temporarily unavailable Sex Assigned At : Social History Observation Description Sex Assigned At Unknown SMOKING Question Answer Notes Are you a: nonsmoker PLAN OF TREATMENT No Information Insurance Providers Payer Name Payer Address Payer Phone Subscriber Number Group Number Insured Name Patient Relationship to Insured Coverage Start Date Coverage End Date [employer] COMPLETE [address] [address] [place] [phone] [id number] MELANIE PURVIS Self - patient is the insured [place] [address] MELANIE PURVIS Self - patient is the insured
[2023-11-12 15:33] LABS: Abs Immature Grans 0.03 10^3/uL (0.0-0.06); Absolute Basophil Count 0.03 10^3/uL (0.0-0.2); Absolute Monocyte Count 0.76 10^3/uL (0.1-0.8); Basophils % 0.5; Eosinophils % 3.2; HCT 32.3 % (40.0-50.0); Immature Grans % 0.5; Lymphocytes % 16.1; MCV 84 fL (80-95); MPV 9.8 fL (8.0-11.0); Monocytes % 12.2; Neutrophils % 67.5; Platelet Count 256 10^3/uL (130-400); RBC 3.84 10^6/uL (4.36-5.78); RDW 14.9 % (11.8-14.1); RDW-SD 45.5 fL; WBC 6.22 10^3/uL (4.4-10.8)
[2023-11-12 16:14] LABS: ALT 22 U/L (16-63); AST 12 U/L (15-37); Albumin 3.3 g/dL (3.4-5.0); Alkaline Phosphatase 97 U/L (46-116); Anion Gap 12.4 mmol/L (3-11); BUN 25 mg/dL (7-18); Bilirubin, Total 0.4 mg/dL (0.2-1.0); CO2 20.6 mmol/L (21.0-32.0); CREATININE 1.4 mg/dL (0.70-1.30); Calcium 8.5 mg/dL (8.5-10.1); Chloride 108 mmol/L (98-107); Estimated GFR 53.07 (mL/min/1.73m2); Ferritin 19 ng/mL (26-388); Glucose 180 mg/dL (74-106); NT-proBNP 2337 pg/mL (<300); Potassium 3.6 mmol/L (3.5-5.1); Sodium 141 mmol/L (136-145); Total Protein 6.4 g/dL (6.4-8.2)
[2023-11-12 16:15] LABS: Hemoglobin A1C 7.1 % (<5.7)
== END 2023-11-12 15:05 | disposition home or self-care (01) ==
LOC: NCHCN 15:04
PROVIDERS: PCP Family Medicine; Visit Provider Family Medicine
DX: E11.9 Type 2 diabetes mellitus without complications (principal); R60.0 Localized edema
CPT/HCPCS: 80053; 82728; 83036; 83880; 85025

== ENCOUNTER 2024-01-28 14:37 | Inpatient (IN) | payer MEDICARE, SELFPAY ==
[2024-01-28] VITALS (33 sets, daily range): BP systolic 95–142; BP diastolic 22–110; PULSE 92–150; RESP 0–33; TEMP 37.3–38.2; O2SAT 84–100
--- NOTE | 2024-01-28 14:30 | DI.CT_ITS ---
Exam(s) CT HEAD CERVICAL SPINE WO EXAM: CT HEAD CERVICAL SPINE WO CLINICAL HISTORY: AMS, unwitnessed fall, on Eliquis. TECHNIQUE: Imaging Protocol: Axial computed tomography images with coronal and sagittal reformatted images were created and reviewed COMPARISON: CT CT BRAIN NECK CTA from 12/03/[address] HEAD WO from 04/06/[address] HEAD WO from 05/02/[address] HEAD WO from 06/20/2023 FINDINGS: CT Head: Ventricles and Extra axial spaces: Normal in size and morphology for the patient's age. Hemorrhage: None. Cerebral parenchyma: There are areas of decreased attenuation in the white matter consistent with chr onic microvascular ischemic disease. There is an old left parietal infarct. No acute mass effect is identified. Dystrophic calcifications are again seen in the basal ganglia these appears stable. Midline shift: None. Brainstem/Cerebellum: Normal. Calvarium: Normal. Visualized Paranasal sinuses/Mastoids: There is a mucous retention cyst in the left maxillary sinus. Soft Tissues: Unremarkable. CT Cervical Spine: Bones: No acute fracture or subluxation. There are moderately severe degenerative changes present thr oughout the cervical spine. There is straightening of the normal cervical lordosis. Soft Tissues: Unremarkable. Lung Apices: Clear. IMPRESSION: 1. No acute intracranial process. 2. No acute fracture or subluxation in the cervical spine. RADIATION DOSE DELIVERED: 1,282.54mGy.cm Total DLP DATA REPOSITORY: All CT scans at this facility are submitted to the National Radiology Data Registry (NRDR) Dose Index Registry (DIR) with the [employer] (A[employer]). RADIATION OPTIMIZATION: All CT scans at this facility use at least one of these dose optimization te chniques: automated exposure control; mA and/or kV adjustment per patient size (includes targeted exa ms where dose is matched to clinical indication); or iterative reconstruction.
--- NOTE | 2024-01-28 14:30 | RT.EKG_ITS ---
APPROVED REPORT Exam: Resting ECG Reason for Exam: altered mental status Patient Location: E HR:115 bpm ECG Measurements Heart Rate 115 AXIS NH [id number] P [id number] QRSd 89 QRS 125 QT 373 T 47 QTc 517 Conclusion Rapid atrial fibrillation at a rate of 115 without acute ischemic change.
--- NOTE | 2024-01-28 14:30 | DI.RAD_ITS ---
Exam(s) XR CHEST 2V PA LATERAL EXAM: XR CHEST 2V PA LATERAL CLINICAL HISTORY: fever, ams. TECHNIQUE: 2D digital imaging was performed. COMPARISON: CR XR CHEST 2V PA LATERAL from 05/02/2023 CR,XR XR PORTABLE CHEST AP from 05/13/2023 FINDINGS: 2 views: Cardiomegaly again noted. Asymmetric density in left upper lobe region is again noted and probably is asymmetric costochondral junction. Similar but lesser finding on the opposite-right side. There is some palmar pattern evide nt. No Shayna B lines. No airspace pulmonary edema. IMPRESSION: Cardiomegaly. Pulmonary venous hypertension pattern. No airspace pulmonary edema at this time. No obvious pleural effusions. DATA REPOSITORY: RADIATION DOSE DELIVERED:
--- NOTE | 2024-01-28 14:47 | ED.GENADUL_ITS ---
Discharge Plan Disposition Patient Disposition: Admit to [facility] Condition: Improving Discharge Details Chief Complaint: AMS/LOC Clinical Impression: Sepsis, Altered mental state, Atrial fibrillation with RVR Admit Date/Time: 01/28/24 17:53 Admit Provider: Adis Peña Attending Provider: Adis Peña Primary Care Provider: David Massey ED Provider: Mya Darling General Date/Time Provider Initiated Documentation: 01/28/24 14:41 . HPI Narrative: The patient is a 73-year-old male with a history of atrial fibrillation on Eliquis, urothelial carcinoma with chronic indwelling Romero catheter, CVA with global aphasia who comes to the emergency department for altered mental status. History is obtained from EMS. Reports that the patient's son had just stepped out for smoke and when he returned he and his father on the floor. Reports he was altered. Per EMS the patient was febrile upon their arrival. When asked if his chest was hurting the patient said no. When asked if he felt short of breath the patient said no. When asked if his head was hurting patient said no. Related Data Home Medications Medication Instructions Recorded Confirmed furosemide 20 mg tablet 20 mg PO DAILY 06/01/21 01/28/24 tamsulosin 0.4 mg capsule (Flomax) 0.4 mg PO DAILY #10 caps 06/01/21 01/28/24 insulin glargine 100 unit/mL 10 unit subcut QPM 01/18/22 01/28/24 subcutaneous solution (Lantus U-100 Insulin) metformin 1,000 mg tablet 1,000 mg PO BID 01/23/22 01/28/24 levothyroxine 50 mcg tablet 50 mcg PO DAILY 12/03/22 01/28/24 atorvastatin 40 mg tablet 40 mg PO DAILY 12/31/22 01/28/24 insulin lispro 100 unit/mL 1 sliding scale dose subcut 12/31/22 01/28/24 subcutaneous pen (Humalog KwikPen USEASDIRECTD (U-100) Insulin) metoprolol tartrate 50 mg tablet 50 mg PO BID 04/29/23 01/28/24 apixaban 5 mg tablet (Eliquis) 5 mg PO BID #180 tabs 07/23/23 01/28/24 levetiracetam 500 mg tablet 500 mg PO BID #180 tabs 11/11/23 01/28/24 diltiazem HCl 120 mg 120 mg PO DAILY 01/28/24 01/28/24 capsule,extended release 24 hr lisinopril 5 mg tablet 5 mg PO DAILY 01/28/24 01/28/24 magnesium oxide 400 mg PO DAILY 01/28/24 01/28/24 Previous Rx's Medication Instructions Recorded tamsulosin 0.4 mg capsule (Flomax) 0.4 mg PO DAILY #10 caps 06/01/21 apixaban 5 mg tablet (Eliquis) 5 mg PO BID #180 tabs 07/23/23 levetiracetam 500 mg tablet 500 mg PO BID #180 tabs 11/11/23 Allergies Allergy/AdvReac Type Severity Reaction Status Date / Time No Known Allergies Allergy Verified 01/28/24 14:44 General Stated Complaint: AMS/LOC TREVOR: 3 Review of Systems Narrative: I am unable to obtain a full review of systems secondary to aphasia and altered mental status. Exam Narrative Exam Narrative: The patient is in no acute distress. Patient is following commands. Patient is able to say his name otherwise does not know where he is. Patient is tachycardic and irregularly irregular. Lungs are clear to auscultation. Abdomen is soft with a palpable mass on the left lower quadrant. Patient has normal bowel sounds throughout without abdominal tenderness to palpation. No tenderness is noted to palpation and range of motion testing to bilateral upper and lower extremities. No midline lumbar or thoracic spine tenderness is noted to palpation either. No midline C-spine tenderness is noted to palpation. Patient has abrasion across his forehead. Course Vital Signs Vital signs: Vital Signs Temperature 37.5 C 01/28/24 14:38 Pulse 121 H 01/28/24 14:38 Respiratory Rate 01/28/24 14:38 Blood Pressure 131/59 L 01/28/24 14:38 Pulse Oximetry 97 01/28/24 14:38 Temperature 37.5 C 01/28/24 14:38 Temperature Source Skin 01/28/24 14:38 Pulse 121 H 01/28/24 14:38 Respiratory Rate 22 01/28/24 14:38 Respiratory Effort Normal, Non-Labored 01/28/24 14:43 Blood Pressure 131/59 L 01/28/24 14:38 Blood Pressure Position Supine 01/28/24 14:38 Pulse Oximetry 97 01/28/24 14:38 Oxygen Delivery Method Room Air 01/28/24 14:38 Oxygen Flow Rate 0 01/28/24 14:38 Pain Level 0 01/28/24 14:38 Lab/Test Results Lab/Test Results: 01/28/24 14:46 Blood Blood Culture - Pending 01/28/24 14:46 Blood Blood Culture - Pending Medical Decision Making Septic workup has been started. I have also ordered imaging study of his head and C-spine. He does arrive tachycardic but not febrile on ED temperature check. EKG is done. Shows that the patient is in atrial fibrillation at a rate of 115 with motion artifact change without acute ischemic change. I was able to speak with the patient's son Rip. He tells me that his father is able to answer yes or no questions for the most part and talk some but for the past 2 days he has not been acting himself. Reports that he is able to normally get up and about using his walker but has hardly move over the past 2 days just laying around in bed. Reports that his dad normally does not complain so he does not know what is going on with him apart from what he is seeing himself. He reports that he was unaware he was running a fever. Reports that he was outside for just 5 minutes and when he returned he was facedown on the floor next to his power chair. Reports that his dad is normally someone who takes all of his medications. Reports that catheter that he is on currently has been there for the past 3 weeks and he is actually due for replacement today. Reports that when he found his dad facedown on the floor he helped him up right away and seemed alert. This is when he called 911. His blood work is resulted. He has significant white count elevation today which is new. His lactic acid is elevated as well. I have ordered normal saline. He is febrile in the emergency department now so I ordered IV Tylenol. The patient's chest x-ray is back and that is nondiagnostic. CT head and C- spine showed no acute finding. Urinalysis is concerning for infection however this has been in place ulcer for the past 3 weeks. Nevertheless I started him on IV Rocephin and told the patient to my plan for hospitalization to which she agreed. I subsequently spoke with the hospitalist will be admitting the patient to their service. Imaging Data Radiologic Study: Attestation: I personally reviewed and interpreted this imaging study as follows: Imaging: CT Scan Radiologist's impression: CT head and C-spine showed: 1. No acute intracranial process 2. No acute fracture or subluxation of the cervical spine Radiologic Study #2: Imaging: X-Ray Radiologist's impression: Chest x-ray shows as interpreted by the radiologist: Cardiomegaly. Pulmonary venous hypertension pattern. No airspace pulmonary edema at this time. No obvious pleural effusions. Quality:SDOH Health Related Social Needs: No Data to Display PFSH All Active Problems (Updated 01/28/24 @ 19:04 by Mya Darling DO) Atrial fibrillation with RVR (Acute) Altered mental state (Acute) Sepsis (Acute) Cardiomegaly (Acute) UTI (urinary tract infection) (Acute) Severe sepsis (Acute) Urinary retention (Acute) Partial epilepsy (Acute) 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 (Chronic) Seizure (Acute) New onset seizure without head trauma (Acute) Global aphasia (Acute) Stroke (Chronic) Obstructive sleep apnea syndrome (Chronic 08/10/08) cpap Dysplastic colon polyp (Acute) Urothelial carcinoma (Acute) 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) Screening for colon cancer (Acute) Recurrent nephrolithiasis (Acute) Medical History (Updated 01/28/24 @ 19:04 by Mya Darling DO) Obstructive uropathy Peripheral neuropathy Venous insufficiency History of depression Iron deficiency CARLOS A on CPAP Hypertension Type 2 diabetes mellitus Dementia Ulcer of [place] limited to breakdown of skin Acute kidney injury superimposed on chronic kidney disease Creatinine elevation Elevated WBCs Hyperglycemia Ureterolithiasis Diabetic leg ulcer Phimosis Venous insufficiency (chronic) (peripheral) Bladder cancer Gross hematuria Chronic venous stasis Noncompliance Anxiety (08/10/08) Asbestosis (08/10/08) Asthma (07/08/12) pt. denies this Carpal tunnel syndrome Olecranon bursitis Peripheral neuralgia Atopic conjunctivitis (10/22/13) Benign prostatic hyperplasia (02/25/13) Depressive disorder (02/25/13) Diabetes mellitus (02/25/13) Essential hypertension (06/24/13) Frequency of micturition (01/03/16) Glaucoma (10/22/13) B/L Hyperlipidemia (02/25/13) Hypermetropia (10/22/13) Hypogonadism Idiopathic peripheral neuropathy Low back pain (08/10/08) Nuclear senile cataract (10/22/13) Obesity (08/10/08) Aviva-en-y 02/2014 Osteoarthritis (08/10/08) BILATERAL KNEE replacements Peptic reflux disease (08/10/08) Presbyopia (10/22/13) Pterygium (08/10/08) LEFT EYE Regular astigmatism (10/22/13) Sensorineural hearing loss, bilateral (09/05/17) Tubular adenoma Tubular and tubulovillous adenoma 2011 --suggested repeat 2017 Umbilical hernia (08/18/12) Urgency of urination (01/03/16) Varicose veins of lower extremity (08/10/08) Urinary tract infection Chronic anticoagulation Atrial fibrillation Surgical History Hx of total knee arthroplasty Pt reports he has had a left and right knee repacement. Pt doesnt remember when and thinks he had it done at [facility] Status post cholecystectomy S/P cholecystectomy (~01/04/21) acute hemorrhagic cholecystitis and xanthogranulomatous inflammation S/P partial colectomy (~05/09/20) History of transurethral destruction of bladder lesion S/P colonoscopy Boo-2011- tubular and tubulovillous polyps Santiago- 2019- sessile serrated with low grade dysplacia, tubullovillous with high grade dysplacia and tubular adenomas Status post abdominoplasty (05/23/16) Status post tonsillectomy Status post total knee replacement B/L Vasectomy Aviva-en-y surgery for weight loss Ronnell Fundoplication Repair of umbilical hernia Laparoscopic Family History Mother Cancer Father Heart disease Sister Cancer Sister No problems noted. Brother No problems noted. Brother No problems noted. Brother No problems noted. Son No problems noted. Son No problems noted. Son No problems noted. Social History Smoking/Tobacco Use Status: Never Second Hand Exposure: Yes Smoking risk assessment performed?: Yes Alcohol Intake: never Drug use: Never Substance use type: does not use Caregiver/Support person: No Household members: other Details: son Housing: house Communication Needs: None Education Level: high school Do you need help understanding health information?: Never Pets and animals: No Do you think of yourself as: straight/heterosexual Current gender identity: male What is your relationship status?: How often do you talk on the phone with friends or family?: once per week How often do you get together with friends or relatives?: decline to answer How often do you attend congregational or congregation services?: decline to answer Do you belong to any clubs or organized social groups?: no Panel score (0-1 are the most socially isolated patients): 0 What type of physical activity do you participate in: walking Duration: 15-30 minutes/day Frequency: 1-2 times per week Velia/Mandaeism: Temple Special velia needs: No Seatbelt use: always Helmet use: No Drive intox or ride w/intox shuttle van driver: No Do you feel safe at home: Yes Do you feel safe in your relationship?: Yes
[2024-01-28 15:03] LABS: Abs Immature Grans 0.12 10^3/uL (0.0-0.06); Absolute Lymphocyte Count 0.54 10^3/uL (1.2-3.4); Basophils % 0.3; HGB 10.7 g/dL (13.5-17.5); Immature Grans % 0.6; Lymphocytes % 2.7; MCH 25.8 pg (27.0-33.0); MCHC 31.5 % (32.0-36.0); MCV 82 fL (80-95); MPV 9.2 fL (8.0-11.0); Monocytes % 8.9; Neutrophils % 86.5; Platelet Count 245 10^3/uL (130-400); RBC 4.15 10^6/uL (4.36-5.78); RDW 16.6 % (11.8-14.1); RDW-SD 50.1 fL
[2024-01-28 15:04] LABS: Absolute Basophil Count 0.06 10^3/uL (0.0-0.2); Absolute Monocyte Count 1.77 10^3/uL (0.1-0.8); Absolute Neutrophil Count 17.21 10^3/uL (1.2-6.7)
[2024-01-28 15:10] LABS: Lactate 4.5 mmol/L (0.9-1.7)
[2024-01-28 15:12] LABS: Bilirubin Negative (Negative); Blood Moderate (Negative); Clarity Turbid (Clear); Glucose Negative (Negative); Ketones Negative (Negative); Leukocyte Esterase Large (Negative); Nitrite Negative (Negative); Urobilinogen 0.2 mg/dL (Up to 0.2); pH 6.5 (5-8)
[2024-01-28 15:25] LABS: Diff Comment Diff Reviewed; RBC Morphology Normal
[2024-01-28 15:26] LABS: C & S Indicated? C&S Done As Ordered; WBC >50 HPF (0-5)
[2024-01-28 15:28] LABS: ALT 20 U/L (16-63); AST 22 U/L (15-37); Albumin 3.1 g/dL (3.4-5.0); Alkaline Phosphatase 106 U/L (46-116); Anion Gap 17.8 mmol/L (3-11); BUN 45 mg/dL (7-18); Bilirubin, Total 1.3 mg/dL (0.2-1.0); CO2 19.2 mmol/L (21.0-32.0); CREATININE 2.1 mg/dL (0.70-1.30); Calcium 8.5 mg/dL (8.5-10.1); Chloride 100 mmol/L (98-107); Estimated GFR 32.42 (mL/min/1.73m2); Glucose 185 mg/dL (74-106); Potassium 4.1 mmol/L (3.5-5.1); Sodium 137 mmol/L (136-145); Total Protein 7.1 g/dL (6.4-8.2); Troponin I 57 ng/L (< or =60)
[2024-01-28] MEDS: ACETAMINOPHEN 1,000 MG/100 ML BTL 400 MG IVPB (15:30)
[2024-01-28] MEDS: Lactated Ringers 500 ML 1000 ML IV (15:30)
--- NOTE | 2024-01-28 15:44 | NUR.NOTE ---
Momo latham [phone] Nursing Note:
[2024-01-28 15:49] LABS: COVID-19 PCR Negative (Negative); Influenza A PCR Negative (Negative); Influenza B PCR Negative (Negative); RSV PCR Negative (Negative)
[2024-01-28 15:55] LABS: Source Nasopharynx
[2024-01-28] MEDS: cefTRIAXone 2 GM/50 ML BAG IVPB (16:30)
[2024-01-28] MEDS: CEFEPIME 2 GM in Normal Saline 100 ML IVPB (17:49)
--- NOTE | 2024-01-28 18:05 | W.PM.HP.N ---
Date of service: 01/28/24 Time of Service: 18:05 Assessment and Plan Assessment and plan (1) Severe sepsis: Status: Acute Assessment and plan: Meets criteria for severe urosepsis based on elevated WBC and pulse as well as the lactate. His lactate is improving after the initial bolus. I ordered a second liter, monitor for fluid overload. Fortunately blood pressure has been stable to I think he is appropriate for the floor. - Presumed source is urine given pyuria and indwelling thornton and normal CXR and lack of other source. - blood cultures pending - expanded antibiotic coverage to cefepime, but given this lowers seizure threshhold, when next dose due changed to pip/tazo. (2) UTI (urinary tract infection): Status: Acute Assessment and plan: as above, cultures pending. Change out thornton now. Qualifiers: Urinary tract infection type: site unspecified Hematuria presence: with hematuria Qualified Code(s): N39.0 - Urinary tract infection, site not specified; R31.9 - Hematuria, unspecified (3) Cardiomegaly: Status: Acute Assessment and plan: He has no known history of CHF, but cardiomegaly on CXR with signs of pulmonary congestion. He should have formal echocardiogram in morning. Monitor for fluid overload. (4) Urinary retention: Status: Acute Assessment and plan: Chronic thornton, change out given actue infection. (5) VERONICA (acute kidney injury): Status: Resolved Assessment and plan: Likely prerenal due to acute illness. Follow after hydration. Holding lisinopril and furosemide. (6) Atrial fibrillation with rapid ventricular response: Status: Resolved Assessment and plan: Pulse elevated in setting of acute illness. Will continue outpatient medications diltiazem and metoprolol. On apixaban. I expect the pulse to come down with hydration and treating the infection without additional rate control. Check TSH as on lT4. (7) Obstructive sleep apnea syndrome: Status: Chronic Assessment and plan: home CPAP (8) Chronic venous stasis: Assessment and plan: basic wound care to shins (9) Diabetes mellitus: Assessment and plan: A1c 7.1% in clinic. Holding metformin and oral semaglutide until he is improving. Given basal insulin and sliding scale. Qualifiers: Diabetes mellitus type: type 2 Diabetes mellitus correction insulin use: with termite control service representative use Diabetes mellitus complication status: without complication Qualified Code(s): E11.9 - Type 2 diabetes mellitus without complications; Z79.4 - prison (current) use of insulin (10) Partial epilepsy: Status: Acute Assessment and plan: COntinue low dose Keppra (11) 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: Status: Chronic Assessment and plan: Continue statin and anticoagulation. History of Present Illness Narrative: 73 yo M with history of controlled type 2 DM, atrial fibrillation on apixaban, h/o CVA with global aphasia, dementia, and seizures, CKD 3, and BPH with indwelling thornton catheter who presented after a fall today in the setting of decreasing function over the past 2 days. The patient states he fell but he can give minimal additional history due to his aphasia. Per the son Rip, who lives with him, Mr. Amaya has been less interactive and more tired over the past 2-3 days. He was in bed most of the time rather then walking around like normal. He was not complaining of focal symptoms. The son went outside for a smoke and returned 5 minutes later to find his father on the floor next to his chair acting confused. Review of Systems Narrative: I did a full review of systems with the patient, which was negative. However I suspect he would not report symptoms accurately due to baseline dementia and acute illness. All systems reviewed & are unremarkable except as noted in HPI and below PFSH All Active Problems (Updated 01/28/24 @ 18:44 by Adis Peña) Cardiomegaly (Acute) UTI (urinary tract infection) (Acute) Severe sepsis (Acute) Urinary retention (Acute) Partial epilepsy (Acute) 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 (Chronic) Seizure (Acute) New onset seizure without head trauma (Acute) Global aphasia (Acute) Stroke (Chronic) Obstructive sleep apnea syndrome (Chronic 08/10/08) cpap Dysplastic colon polyp (Acute) Urothelial carcinoma (Acute) 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) Screening for colon cancer (Acute) Recurrent nephrolithiasis (Acute) Medical History (Updated 01/28/24 @ 18:44 by Adis Peña) Obstructive uropathy Peripheral neuropathy Venous insufficiency History of depression Iron deficiency CARLOS A on CPAP Hypertension Type 2 diabetes mellitus Dementia Ulcer of [place] limited to breakdown of skin Acute kidney injury superimposed on chronic kidney disease Creatinine elevation Elevated WBCs Hyperglycemia Ureterolithiasis Diabetic leg ulcer Phimosis Venous insufficiency (chronic) (peripheral) Bladder cancer Gross hematuria Chronic venous stasis Noncompliance Anxiety (08/10/08) Asbestosis (08/10/08) Asthma (07/08/12) pt. denies this Carpal tunnel syndrome Olecranon bursitis Peripheral neuralgia Atopic conjunctivitis (10/22/13) Benign prostatic hyperplasia (02/25/13) Depressive disorder (02/25/13) Diabetes mellitus (02/25/13) Essential hypertension (06/24/13) Frequency of micturition (01/03/16) Glaucoma (10/22/13) B/L Hyperlipidemia (02/25/13) Hypermetropia (10/22/13) Hypogonadism Idiopathic peripheral neuropathy Low back pain (08/10/08) Nuclear senile cataract (10/22/13) Obesity (08/10/08) Aviva-en-y 02/2014 Osteoarthritis (08/10/08) BILATERAL KNEE replacements Peptic reflux disease (08/10/08) Presbyopia (10/22/13) Pterygium (08/10/08) LEFT EYE Regular astigmatism (10/22/13) Sensorineural hearing loss, bilateral (09/05/17) Tubular adenoma Tubular and tubulovillous adenoma 2011 --suggested repeat 2017 Umbilical hernia (08/18/12) Urgency of urination (01/03/16) Varicose veins of lower extremity (08/10/08) Urinary tract infection Chronic anticoagulation Atrial fibrillation Surgical History Hx of total knee arthroplasty Pt reports he has had a left and right knee repacement. Pt doesnt remember when and thinks he had it done at [facility] (formerly [facility]) Status post cholecystectomy S/P cholecystectomy (~01/04/21) acute hemorrhagic cholecystitis and xanthogranulomatous inflammation S/P partial colectomy (~05/09/20) History of transurethral destruction of bladder lesion S/P colonoscopy Haddad-2011- tubular and tubulovillous polyps Santiago- 2019- sessile serrated with low grade dysplacia, tubullovillous with high grade dysplacia and tubular adenomas Status post abdominoplasty (05/23/16) Status post tonsillectomy Status post total knee replacement B/L Vasectomy Aviva-en-y surgery for weight loss Ronnell Fundoplication Repair of umbilical hernia Laparoscopic Family History Mother Cancer Father Heart disease Sister Cancer Sister No problems noted. Brother No problems noted. Brother No problems noted. Brother No problems noted. Son No problems noted. Son No problems noted. Son No problems noted. Social History Smoking/Tobacco Use Status: Never Second Hand Exposure: Yes Smoking risk assessment performed?: Yes Alcohol Intake: never Drug use: Never Substance use type: does not use Caregiver/Support person: No Household members: other Details: son Housing: house Communication Needs: None Education Level: high school Do you need help understanding health information?: Never Pets and animals: No Do you think of yourself as: straight/heterosexual Current gender identity: male What is your relationship status?: How often do you talk on the phone with friends or family?: once per week How often do you get together with friends or relatives?: decline to answer How often do you attend roman catholic or gnosticism services?: decline to answer Do you belong to any clubs or organized social groups?: no Panel score (0-1 are the most socially isolated patients): 0 What type of physical activity do you participate in: walking Duration: 15-30 minutes/day Frequency: 1-2 times per week Velia/Ad[employer]ist: [employer] Special velia needs: No Seatbelt use: always Helmet use: No Drive intox or ride w/intox bus driver school: No Do you feel safe at home: Yes Do you feel safe in your relationship?: Yes Meds Allergies and Home Medications Allergies Allergy/AdvReac Type Severity Reaction Status Date / Time No Known Allergies Allergy Verified 01/28/24 14:44 Home Medications Medication Instructions Recorded Confirmed Type furosemide 20 mg tablet 20 mg PO DAILY 06/01/21 01/28/24 History tamsulosin 0.4 mg capsule (Flomax) 0.4 mg PO DAILY #10 caps 06/01/21 01/28/24 Rx insulin glargine 100 unit/mL 10 unit subcut QPM 01/18/22 01/28/24 History subcutaneous solution (Lantus U-100 Insulin) metformin 1,000 mg tablet 1,000 mg PO BID 01/23/22 01/28/24 History levothyroxine 50 mcg tablet 50 mcg PO DAILY 12/03/22 01/28/24 History atorvastatin 40 mg tablet 40 mg PO DAILY 12/31/22 01/28/24 History insulin lispro 100 unit/mL 1 sliding scale dose subcut 12/31/22 01/28/24 History subcutaneous pen (Humalog KwikPen USEASDIRECTD (U-100) Insulin) metoprolol tartrate 50 mg tablet 50 mg PO BID 04/29/23 01/28/24 History apixaban 5 mg tablet (Eliquis) 5 mg PO BID #180 tabs 07/23/23 01/28/24 Rx levetiracetam 500 mg tablet 500 mg PO BID #180 tabs 11/11/23 01/28/24 Rx diltiazem HCl 120 mg 120 mg PO DAILY 01/28/24 01/28/24 History capsule,extended release 24 hr lisinopril 5 mg tablet 5 mg PO DAILY 01/28/24 01/28/24 History magnesium oxide 400 mg PO DAILY 01/28/24 01/28/24 History Exam Narrative Exam Narrative: GEN: Alert, oriented to self, pleasant and cooperative, but has a difdicult time forming words. Hesistates after starting to speak, then says okay. Gives minimal history with no detail. No acute distress at rest. HEENT: Head atraumatic. Conjunctiva clear, no icterus. PEERL, EOMI. TMs clear sara. no rhinorrhea. MMM, OP benign. Neck is supple with no masses or lymphadenopathy, trachea midline LUNGS: CTAB with normal effort CV: tachycardic and irregularly irregular with no murmurs, gallops, or rubs. ABD: +BS, soft, NT/ND. No masses. EXT: no cyanosis, clubbing, or edema MSK: No joint redness or swelling. No pain with ROM hips/knees. NEURO: CN 2-12 grossly intact. Normal movement of 4 extremities. No tremor. Normal speech and coordination SKIN: No rashes. Lower legs hyperpigmented with superficial ulcerations on shins. Abrasion of forehead. PSYCH: normal mood and affect, though memory clearly impaired. Results Imaging Chest x-ray: report reviewed (Cardiomegaly. Pulmonary venous hypertension pattern. No airspace pulmonary edema at this time. No obvious pleural effusions.) and image reviewed EKG: report reviewed and image reviewed (atrial fibrillation, rate 115, no ischemic changes) Imaging Studies: CT head/cervical spine: 1. No acute intracranial process. 2. No acute fracture or subluxation in the cervical spine. Labs 01/28/24 14:55 01/28/24 14:55 Labs: Laboratory Results - last 24 hr 01/28/24 01/28/24 01/28/24 14:55 14:58 15:00 WBC 19.90 H RBC 4.15 L Hgb 10.7 L Hct 34.0 L MCV 82 MCH 25.8 L MCHC 31.5 L RDW 16.6 H Plt Count 245 MPV 9.2 Immature Gran % 0.6 Neutrophils % 86.5 Lymphocytes % 2.7 Monocytes % 8.9 Eosinophils % 1.0 Basophils % 0.3 Nucleated RBC % 0.0 Absolute Neutrophils 17.21 H Absolute Lymphocytes 0.54 L Absolute Monocytes 1.77 H Absolute Eosinophils 0.20 Absolute Basophils 0.06 RBC Morphology Normal VBG Lactate 4.5 H* Sodium 137 Potassium 4.1 Chloride 100 Carbon Dioxide 19.2 L Anion Gap 17.8 H BUN 45 H Creatinine 2.1 H Est GFR (CKD-EPI 2020) 32.42 Glucose 185 H Calcium 8.5 Total Bilirubin 1.3 H AST 22 ALT 20 Alkaline Phosphatase 106 Troponin I 57 Total Protein 7.1 Albumin 3.1 L Urine Color Yellow Urine Clarity Turbid Urine pH 6.5 Ur Specific [place] 1.020 Urine Protein 100 H Urine Ketones Negative Urine Blood Moderate H Urine Nitrite Negative Urine Bilirubin Negative Urine Urobilinogen 0.2 Ur Leukocyte Esterase Large H Urine RBC Not Applicable Urine WBC >50 H Ur Epithelial Cells Not Applicable Urine Crystals Not Applicable Urine Bacteria Not Applicable Urine Mucus Not Applicable Ur Culture Indicated? C&S Done As Ordered Urine Glucose Negative COVID-19 Source Nasopharynx SARS-CoV-2 (PCR) Negative Influenza Type A (PCR) Negative Influenza Type B (PCR) Negative RSV (PCR) Negative Last Vital Signs Temp 38.2 C H 01/28/24 15:30 Pulse 126 H 01/28/24 16:08 Resp 18 01/28/24 16:10 BP 124/73 01/28/24 16:08 Pulse Ox 96 01/28/24 16:08 Time Spent Time spent with Patient: >75 minutes Time was spent: preparing to see the patient(eg.review tests), obtaining and/or reviewing separately otained hiistory, ordering medications,tests, procedures, referring, communicating with other health janitor caretaker, indepentently interpreting results and care coordination
[2024-01-28 18:18] LABS: Lactate 2.7 mmol/L (0.6-1.4)
--- NOTE | 2024-01-28 18:39 | W.PCEDHO ---
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 BGL 197, 102.1 F enroute. Pt with indwelling catheter. Subjective pt A&Ox0, not answering 01/28/24 14:43 questions, pt awake adn looking around room, allowing EKG and vitals to be taken. Medical / Surgical History (Last Updated 01/28/24 @ 18:13 by Adis Peña) Obstructive uropathy Peripheral neuropathy Venous insufficiency History of depression Iron deficiency CARLOS A on CPAP Hypertension Type 2 diabetes mellitus Dementia Ulcer of [place] limited to breakdown of skin UTI (urinary tract infection) Acute kidney injury superimposed on chronic kidney disease Creatinine elevation Elevated WBCs Hyperglycemia Ureterolithiasis Diabetic leg ulcer Phimosis Venous insufficiency (chronic) (peripheral) Bladder cancer Gross hematuria Chronic venous stasis Noncompliance Anxiety (08/10/08) Asbestosis (08/10/08) Asthma (07/08/12) Carpal tunnel syndrome Olecranon bursitis Peripheral neuralgia Atopic conjunctivitis (10/22/13) Benign prostatic hyperplasia (02/25/13) Depressive disorder (02/25/13) Diabetes mellitus (02/25/13) Essential hypertension (06/24/13) Frequency of micturition (01/03/16) Glaucoma (10/22/13) Hyperlipidemia (02/25/13) Hypermetropia (10/22/13) Hypogonadism Idiopathic peripheral neuropathy Low back pain (08/10/08) Nuclear senile cataract (10/22/13) Obesity (08/10/08) Osteoarthritis (08/10/08) Peptic reflux disease (08/10/08) Presbyopia (10/22/13) Pterygium (08/10/08) Regular astigmatism (10/22/13) Sensorineural hearing loss, bilateral (09/05/17) Tubular adenoma Umbilical hernia (08/18/12) Urgency of urination (01/03/16) Varicose veins of lower extremity (08/10/08) Urinary tract infection Chronic anticoagulation Atrial fibrillation (Last Reviewed 01/28/24 @ 18:12 by Adis Peña) Hx of total knee arthroplasty Status post cholecystectomy S/P cholecystectomy (~01/04/21) S/P partial colectomy (~05/09/20) History of transurethral destruction of bladder lesion S/P colonoscopy Status post abdominoplasty (05/23/16) Status post tonsillectomy Status post total knee replacement Vasectomy Aviva-en-y surgery Ronnell Fundoplication Repair of umbilical hernia Most Recent Vital Signs Temperature 38.2 C H 01/28/24 15:30 Temperature Source Oral 01/28/24 15:30 Pulse 126 H 01/28/24 16:08 Pulse 115 H 01/28/24 15:40 Respiratory Rate 18 01/28/24 16:10 Respiratory Effort Normal 01/28/24 15:04 Blood Pressure 124/73 01/28/24 16:08 Blood Pressure Mean 92 01/28/24 16:08 Blood Pressure Position Supine 01/28/24 15:04 Pulse Oximetry 96 01/28/24 16:08 Oxygen Delivery Method Room Air 01/28/24 15:04 Oxygen Flow Rate 0 01/28/24 15:04 Pain Level 0 01/28/24 15:04 Allergies No Known Allergies Allergy (Verified 01/28/24 14:44) IV IV Catheter Type [Right Peripheral IV Antecubital] IV Catheter Type [Left Forearm Peripheral IV ] IV Catheter Gauge [Right 18 Antecubital] IV Catheter Gauge [Left 20 Forearm] Diet Orders Category Date Time Status Heart Healthy Eating [DIET] Nutrition 01/29/24 Breakfast Ordered Diagnostics 01/28/24 01/28/24 01/28/24 Range/Units 20:41 18:10 15:00 WBC (4.4-10.8) 10^3/uL RBC (4.36-5.78) 10^6/uL Hgb (13.5-17.5) g/dL Hct (40.0-50.0) % MCV (80-95) fL MCH (27.0-33.0) pg MCHC (32.0-36.0) % RDW (11.8-14.1) % Plt Count (130-400) 10^3/uL MPV (8.0-11.0) fL Immature Gran % Neutrophils % Lymphocytes % Monocytes % Eosinophils % Basophils % Nucleated RBC % (0.0-0.3) % Absolute Neutrophils (1.2-6.7) 10^3/uL Absolute Lymphocytes (1.2-3.4) 10^3/uL Absolute Monocytes (0.1-0.8) 10^3/uL Absolute Eosinophils (0.0-0.7) 10^3/uL Absolute Basophils (0.0-0.2) 10^3/uL RBC Morphology VBG Lactate Pending 2.7 H* (0.9-1.7) mmol/L Sodium (136-145) mmol/L Potassium (3.5-5.1) mmol/L Chloride (98-107) mmol/L Carbon Dioxide (21.0-32.0) mmol/L Anion Gap (3-11) mmol/L BUN (7-18) mg/dL Creatinine (0.70-1.30) mg/dL Est GFR (CKD-EPI 2020) (mL/min/1.73m2) Glucose (74-106) mg/dL Calcium (8.5-10.1) mg/dL Total Bilirubin (0.2-1.0) mg/dL AST (15-37) U/L ALT (16-63) U/L Alkaline Phosphatase (46-116) U/L Troponin I (< or =60) ng/L Total Protein (6.4-8.2) g/dL Albumin (3.4-5.0) g/dL Urine Color Yellow (Yellow) Urine Clarity Turbid (Clear) Urine pH 6.5 (5-8) Ur Specific [place] 1.020 (1.005-1.025) Urine Protein 100 H (Neg-Trace) mg/dL Urine Ketones Negative (Negative) mg/dL Urine Blood Moderate H (Negative) Urine Nitrite Negative (Negative) Urine Bilirubin Negative (Negative) Urine Urobilinogen 0.2 (Up to 0.2) mg/dL Ur Leukocyte Esterase Large H (Negative) Urine RBC Not Applicable Urine WBC >50 H (0-5) HPF Ur Epithelial Cells Not Applicable Urine Crystals Not Applicable Urine Bacteria Not Applicable Urine Mucus Not Applicable Ur Culture Indicated? C&S Done As Ordered Urine Glucose Negative (Negative) mg/dL COVID-19 Source SARS-CoV-2 (PCR) (Negative) Influenza Type A (PCR) (Negative) Influenza Type B (PCR) (Negative) RSV (PCR) (Negative) 01/28/24 01/28/24 Range/Units 14:58 14:55 WBC 19.90 H (4.4-10.8) 10^3/uL RBC 4.15 L (4.36-5.78) 10^6/uL Hgb 10.7 L (13.5-17.5) g/dL Hct 34.0 L (40.0-50.0) % MCV 82 (80-95) fL MCH 25.8 L (27.0-33.0) pg MCHC 31.5 L (32.0-36.0) % RDW 16.6 H (11.8-14.1) % Plt Count 245 (130-400) 10^3/uL MPV 9.2 (8.0-11.0) fL Immature Gran % 0.6 Neutrophils % 86.5 Lymphocytes % 2.7 Monocytes % 8.9 Eosinophils % 1.0 Basophils % 0.3 Nucleated RBC % 0.0 (0.0-0.3) % Absolute Neutrophils 17.21 H (1.2-6.7) 10^3/uL Absolute Lymphocytes 0.54 L (1.2-3.4) 10^3/uL Absolute Monocytes 1.77 H (0.1-0.8) 10^3/uL Absolute Eosinophils 0.20 (0.0-0.7) 10^3/uL Absolute Basophils 0.06 (0.0-0.2) 10^3/uL RBC Morphology Normal VBG Lactate 4.5 H* (0.9-1.7) mmol/L Sodium 137 (136-145) mmol/L Potassium 4.1 (3.5-5.1) mmol/L Chloride 100 (98-107) mmol/L Carbon Dioxide 19.2 L (21.0-32.0) mmol/L Anion Gap 17.8 H (3-11) mmol/L BUN 45 H (7-18) mg/dL Creatinine 2.1 H (0.70-1.30) mg/dL Est GFR (CKD-EPI 2020) 32.42 (mL/min/1.73m2) Glucose 185 H (74-106) mg/dL Calcium 8.5 (8.5-10.1) mg/dL Total Bilirubin 1.3 H (0.2-1.0) mg/dL AST 22 (15-37) U/L ALT 20 (16-63) U/L Alkaline Phosphatase 106 (46-116) U/L Troponin I 57 (< or =60) ng/L Total Protein 7.1 (6.4-8.2) g/dL Albumin 3.1 L (3.4-5.0) g/dL Urine Color (Yellow) Urine Clarity (Clear) Urine pH (5-8) Ur Specific [place] (1.005-1.025) Urine Protein (Neg-Trace) mg/dL Urine Ketones (Negative) mg/dL Urine Blood (Negative) Urine Nitrite (Negative) Urine Bilirubin (Negative) Urine Urobilinogen (Up to 0.2) mg/dL Ur Leukocyte Esterase (Negative) Urine RBC Urine WBC (0-5) HPF Ur Epithelial Cells Urine Crystals Urine Bacteria Urine Mucus Ur Culture Indicated? Urine Glucose (Negative) mg/dL COVID-19 Source Nasopharynx SARS-CoV-2 (PCR) Negative (Negative) Influenza Type A (PCR) Negative (Negative) Influenza Type B (PCR) Negative (Negative) RSV (PCR) Negative (Negative) 01/28/24 15:05 Blood Culture - Pending Blood 01/28/24 15:00 Urine Culture - Pending Urine - Cath Not Specified 01/28/24 14:55 Blood Culture - Pending Blood Intake and Output - 24 Hour Total 01/28/24 14:36 thru 01/28/24 18:26 Intake Total 770 Balance 770 Weight 91.354 kg Intake: IV 770 Falls Risk Assessment History of Falls Admit Due to Fall 01/28/24 15:04 Contributing Factors Unstable,Impairments 01/28/24 15:04 Ambulatory Aids Independent 01/28/24 15:04 Tubes/Lines W/no contributing factors 01/28/24 15:04 Gait Evaluation W/any additional score 01/28/24 15:04 Cognition Cognitive impairment 01/28/24 15:04 Fall Total Score 76 01/28/24 15:04 Level of Risk Maximum Risk 01/28/24 15:04 Notes 01/28/24 15:44 Nursing Notes by Irena Rabago son [phone] Nursing Note: Initialized on 01/28/24 15:44 - END OF NOTE v v v v v v v v v Sending and/or Receiving Nurses: Please use comment section below to note any information pertinent to the patient hand-off not included above. Information / Comments: Report received from: Campos Stovall RN All questions answered
[2024-01-28] MEDS: Lactated Ringers 1,000 ML 1000 ML IV (19:17)
[2024-01-28] MEDS: Acetaminophen 325 MG TAB PO (20:32)
[2024-01-28] MEDS: Metoprolol 50 MG TAB PO (20:32)
[2024-01-28] MEDS: Apixaban 5 MG TAB PO (20:33)
[2024-01-28] MEDS: levETIRAcetam 500 MG TAB PO (20:33)
[2024-01-28 21:45] LABS: Lactate 2.2 mmol/L (0.6-1.4)
[2024-01-28] MEDS: MORPHine 2 MG/ML SYR IVP (23:47)
[2024-01-28] MEDS: QUEtiapine 25 MG TAB PO (23:52)
[2024-01-28] MEDS: Insulin Glargine 300 UNITS/3 ML PEN 10 UNITS SC (23:52)
[2024-01-29] VITALS (28 sets, daily range): BP systolic 83–126; BP diastolic 53–110; PULSE 67–113; RESP 18–31; TEMP 37.3–39; O2SAT 91–98
[2024-01-29 06:02] LABS: Absolute Basophil Count 0.03 10^3/uL (0.0-0.2); Absolute Eosinophil Count 0.02 10^3/uL (0.0-0.7); Absolute Lymphocyte Count 0.41 10^3/uL (1.2-3.4); Absolute Monocyte Count 1.24 10^3/uL (0.1-0.8); Basophils % 0.2; Eosinophils % 0.1; HCT 31.4 % (40.0-50.0); HGB 9.7 g/dL (13.5-17.5); Immature Grans % 0.6; Lymphocytes % 2.6; MCH 25.6 pg (27.0-33.0); MCHC 30.9 % (32.0-36.0); MCV 83 fL (80-95); MPV 9.5 fL (8.0-11.0); Monocytes % 7.9; Neutrophils % 88.6; Platelet Count 207 10^3/uL (130-400); RBC 3.79 10^6/uL (4.36-5.78); RDW 16.6 % (11.8-14.1); RDW-SD 50.7 fL
[2024-01-29 06:03] LABS: Absolute Neutrophil Count 13.91 10^3/uL (1.2-6.7)
[2024-01-29] MEDS: PIPERACILLIN/TAZO 2.25 GM in Normal Saline 50 ML IVPB (06:05)
[2024-01-29] MEDS: Levothyroxine 50 MCG TAB PO (06:05)
[2024-01-29 06:26] LABS: ALT 16 U/L (16-63); AST 13 U/L (15-37); Albumin 2.4 g/dL (3.4-5.0); Alkaline Phosphatase 89 U/L (46-116); Anion Gap 11.2 mmol/L (3-11); BUN 44 mg/dL (7-18); Bilirubin, Direct 0.3 mg/dL (0.0-0.2); Bilirubin, Total 0.8 mg/dL (0.2-1.0); CO2 23.8 mmol/L (21.0-32.0); CREATININE 1.9 mg/dL (0.70-1.30); Chloride 105 mmol/L (98-107); Estimated GFR 36.56 (mL/min/1.73m2); Glucose 168 mg/dL (74-106); Potassium 3.9 mmol/L (3.5-5.1); Sodium 140 mmol/L (136-145); TSH (W/Ref FT4) 0.61 uIU/mL (0.36-3.74)
--- NOTE | 2024-01-29 08:18 | PDOC.CMIN ---
Date of service: 01/29/24 Time of Service: 08:18 Care Management Initial Assmt Initial Assessment REASON FOR HOSPITALIZATION:: VERONICA PREVIOUS FUNCTIONAL STATUS/SOCIAL/FAMILY SUPPORTS:: Eugene lives in an apartment in [place] with his son Rip. He has [facility] highest needs and Rip is his paid caregiver through [employer]. Eugene has 2 other sons but is not in regular contact with them. His son Huy is the employer for the [facility] staff but is not otherwise involved in Eugene' care. Eugene can ambulate independently for short distances and can toilet himself. He requires assistance with bathing, dressing and other ADLs which Rip provides. Rip also provides transportation for Eugene. CURRENT FUNCTIONAL STATUS:: Eugene was lying in bed when CM met with him. He has global aphasia so communication was limited. Eugene was able to say yes and no clearly but did not speak in long sentences. CM called Rip for more information and he confirmed that Eugene does not talk much. When CM asked about a diagnosis of dementia, which is noted in the medical record, Rip informed CM that he was unaware of that diagnosis. He did state that Eugene might have some memory issues but that due his speech, it is hard to tell. Rip shared that he plans to have Eugene return home when medically cleared. At this time he feels he is able to meet Eugene' needs. Home health nursing comes about once a week as well. ADVANCE DIRECTIVES:: On file. States he does not want CPR. Carmelo WEI Has patient been provided with info about the portal/API?: Yes Did the patient sign up for the portal?: No CODE STATUS:: Full Code CODE STATUS COMMENT:: Advanced directive says no CPR INSURANCE COVERAGE / FINANCIAL ISSUES:: [facility] Medicare Replacement CURRENT HOME/COMMUNITY SERVICES/EQUIPMENT:: [facility] highest needs. Son Rip is caregiver paid by [employer]. [facility] nursing weekly walker, shower chair, PRIMARY CARE PHYSICIAN:: David Massey POTENTIAL DISCHARGE NEEDS:: follow up with PCP and plan of care PATIENT/FAMILY EDUCATION NEEDS:: Review of discharge instructions, activity, limitations, follow up plan, discuss Ask Me Three TRANSPORTATION:: via private vehicle with son PLAN:: Anticipate Eugene will discharge home with a resumption of services. He will follow up with with his PCP and plan of care as prescribed and transport with his son. CM will continue to support Eugene and assess for discharge concerns. 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 (Chronic) Seizure (Acute) New onset seizure without head trauma (Acute) Global aphasia (Acute) Stroke (Chronic) Obstructive sleep apnea syndrome (Chronic 08/10/08) cpap Dysplastic colon polyp (Acute) Urothelial carcinoma (Acute) 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) Screening for colon cancer (Acute) Recurrent nephrolithiasis (Acute) Medical History (Updated 01/29/24 @ 08:42 by Adis Peña) Obstructive uropathy Peripheral neuropathy Venous insufficiency History of depression Iron deficiency CARLOS A on CPAP Hypertension Type 2 diabetes mellitus Dementia Ulcer of [place]illo limited to breakdown of skin Acute kidney injury superimposed on chronic kidney disease Creatinine elevation Elevated WBCs Hyperglycemia Ureterolithiasis Diabetic leg ulcer Phimosis Venous insufficiency (chronic) (peripheral) Bladder cancer Gross hematuria Chronic venous stasis Noncompliance Anxiety (08/10/08) Asbestosis (08/10/08) Asthma (07/08/12) pt. denies this Carpal tunnel syndrome Olecranon bursitis Peripheral neuralgia Atopic conjunctivitis (10/22/13) Benign prostatic hyperplasia (02/25/13) Depressive disorder (02/25/13) Diabetes mellitus (02/25/13) Essential hypertension (06/24/13) Frequency of micturition (01/03/16) Glaucoma (10/22/13) B/L Hyperlipidemia (02/25/13) Hypermetropia (10/22/13) Hypogonadism Idiopathic peripheral neuropathy Low back pain (08/10/08) Nuclear senile cataract (10/22/13) Obesity (08/10/08) Aviva-en-y 02/2014 Osteoarthritis (08/10/08) BILATERAL KNEE replacements Peptic reflux disease (08/10/08) Presbyopia (10/22/13) Pterygium (08/10/08) LEFT EYE Regular astigmatism (10/22/13) Sensorineural hearing loss, bilateral (09/05/17) Tubular adenoma Tubular and tubulovillous adenoma 2011 --suggested repeat 2017 Umbilical hernia (08/18/12) Urgency of urination (01/03/16) Varicose veins of lower extremity (08/10/08) Urinary tract infection Chronic anticoagulation Atrial fibrillation Surgical History Hx of total knee arthroplasty Pt reports he has had a left and right knee repacement. Pt doesnt remember when and thinks he had it done at [facility] Status post cholecystectomy S/P cholecystectomy (~01/04/21) acute hemorrhagic cholecystitis and xanthogranulomatous inflammation S/P partial colectomy (~05/09/20) History of transurethral destruction of bladder lesion S/P colonoscopy Boo-2011- tubular and tubulovillous polyps Santiago- 2019- sessile serrated with low grade dysplacia, tubullovillous with high grade dysplacia and tubular adenomas Status post abdominoplasty (05/23/16) Status post tonsillectomy Status post total knee replacement B/L Vasectomy Aviva-en-y surgery for weight loss Ronnell Fundoplication Repair of umbilical hernia Laparoscopic Family History Mother Cancer Father Heart disease Sister Cancer Sister No problems noted. Brother No problems noted. Brother No problems noted. Brother No problems noted. Son No problems noted. Son No problems noted. Son No problems noted. Social History Smoking/Tobacco Use Status: Never Second Hand Exposure: Yes Smoking risk assessment performed?: Yes Alcohol Intake: never Drug use: Never Substance use type: does not use Caregiver/Support person: No Household members: other Details: son Housing: house Communication Needs: None Education Level: high school Do you need help understanding health information?: Never Pets and animals: No Do you think of yourself as: straight/heterosexual Current gender identity: male What is your relationship status?: How often do you talk on the phone with friends or family?: once per week How often do you get together with friends or relatives?: decline to answer How often do you attend moravian or hinduism services?: decline to answer Do you belong to any clubs or organized social groups?: no Panel score (0-1 are the most socially isolated patients): 0 What type of physical activity do you participate in: walking Duration: 15-30 minutes/day Frequency: 1-2 times per week Velia/Restorationist: [employer]regation Special velia needs: No Seatbelt use: always Helmet use: No Drive intox or ride w/intox driver material handler: No Do you feel safe at home: Yes Do you feel safe in your relationship?: Yes SDOH(Care Management) Screening Will the Patient Participate in the Screening?: Declined to provide
--- NOTE | 2024-01-29 08:21 | PGE_ITS ---
Date of Service Date of service: 01/29/24 Time of Service: 08:21 Assessment and Plan Assessment and plan (1) Severe sepsis: Status: Acute Assessment and plan: Met criteria on admission for severe urosepsis based on elevated WBC and pulse as well as the lactate. His lactate improved after initial fluids. I - Presumed source is urine given pyuria and indwelling thornton and normal CXR and lack of other source. - blood cultures growing GNR. - ceftriaxone in ED, expanded antibiotic coverage to cefepime, but given this lowers seizure threshhold, changed to pip/tazo Dose increased per pharmacy with improving GFR. (2) UTI (urinary tract infection): Status: Acute Assessment and plan: as above, cultures pending. Thornton changed 01/27. Qualifiers: Urinary tract infection type: site unspecified Hematuria presence: with hematuria Qualified Code(s): N39.0 - Urinary tract infection, site not specified; R31.9 - Hematuria, unspecified (3) Cardiomegaly: Status: Acute Assessment and plan: He has no known history of CHF, looking and back the cardiomegaly on CXR is stable. He is not in CHF clinically. He had an ehco in 05/2023 with normal LVEF. I don't think we need to repeat echo now. (4) Urinary retention: Status: Acute Assessment and plan: Enlarged prostate. Has a chronic thornton, changed out given actue infection. (5) VERONICA (acute kidney injury): Status: Resolved Assessment and plan: On CKD stage 3. Likely prerenal due to acute illness. Improving with hydration. Holding lisinopril and furosemide. (6) Atrial fibrillation with rapid ventricular response: Status: Resolved Assessment and plan: Pulse elevated elevated on presentation, imrpoved. Will continue outpatient med ications diltiazem and metoprolol. On apixaban. I expect the pulse to come down with hydration and treating the infection without additional rate control. TSH normal, but ideal range may be higher given his history and age. (7) Obstructive sleep apnea syndrome: Status: Chronic Assessment and plan: home CPAP (8) Chronic venous stasis: Assessment and plan: basic wound care to shins, wound care consult (9) Diabetes mellitus: Assessment and plan: A1c 7.1% in clinic. Holding metformin and oral semaglutide until he is improving. Given basal insulin and sliding scale. titrate up if sugars stay high. Qualifiers: Diabetes mellitus type: type 2 Diabetes mellitus [facility] insulin use: with [facility] use Diabetes mellitus complication status: without complication Qualified Code(s): E11.9 - Type 2 diabetes mellitus without complications; Z79.4 - long-term (current) use of insulin (10) Partial epilepsy: Status: Acute Assessment and plan: COntinue low dose Keppra (11) 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: Status: Chronic Assessment and plan: Continue statin and anticoagulation. (12) Hyperbilirubinemia: Status: Acute Assessment and plan: normalized this morning Subjective Subjective Patient reports: fever; denies diarrhea, nausea or vomiting Interval history since last seen: 24 hr: Blood culture growing GNR Thornton replaced 01/27 Mr. Rueda feels exhausted. He is eating and drinking. He denies chest pain or shortness of breath, not coughing Exam Narrative Exam Narrative: GEN: Alert, oriented to self, pleasant and cooperative, but has a difdicult time forming words. No acute distress at rest. HEENT: Head with abrasion to forehead. Conjunctiva clear, no icterus. LUNGS: CTAB with normal effort CV: irregularly irregular with no murmurs, gallops, or rubs. ABD: +BS, soft, NT/ND. Firmness in left lower quadrant abdominal wall, not tender. EXT: no cyanosis, clubbing, or edema MSK: No joint redness or swelling. No pain with ROM hips/knees. SKIN: No rashes. Lower legs hyperpigmented with superficial ulcerations on shins, dressed. Abrasion of forehead. PSYCH: normal mood and affect, though memory clearly impaired. Objective Last Vital Signs Temp 38.1 C H 01/29/24 01:00 Pulse 79 01/29/24 07:01 Resp 28 H 01/29/24 07:01 BP 101/59 L 01/29/24 07:01 Pulse Ox 98 01/29/24 07:01 Laboratory Results - last 24 hr 01/28/24 01/28/24 01/28/24 14:55 14:58 15:00 WBC 19.90 H RBC 4.15 L Hgb 10.7 L Hct 34.0 L MCV 82 MCH 25.8 L MCHC 31.5 L RDW 16.6 H Plt Count 245 MPV 9.2 Immature Gran % 0.6 Neutrophils % 86.5 Lymphocytes % 2.7 Monocytes % 8.9 Eosinophils % 1.0 Basophils % 0.3 Nucleated RBC % 0.0 Absolute Neutrophils 17.21 H Absolute Lymphocytes 0.54 L Absolute Monocytes 1.77 H Absolute Eosinophils 0.20 Absolute Basophils 0.06 RBC Morphology Normal VBG Lactate 4.5 H* Sodium 137 Potassium 4.1 Chloride 100 Carbon Dioxide 19.2 L Anion Gap 17.8 H BUN 45 H Creatinine 2.1 H Est GFR (CKD-EPI 2020) 32.42 Glucose 185 H Calcium 8.5 Total Bilirubin 1.3 H Conjugated Bilirubin AST 22 ALT 20 Alkaline Phosphatase 106 Troponin I 57 Total Protein 7.1 Albumin 3.1 L TSH Urine Color Yellow Urine Clarity Turbid Urine pH 6.5 Ur Specific [place] 1.020 Urine Protein 100 H Urine Ketones Negative Urine Blood Moderate H Urine Nitrite Negative Urine Bilirubin Negative Urine Urobilinogen 0.2 Ur Leukocyte Esterase Large H Urine RBC Not Applicable Urine WBC >50 H Ur Epithelial Cells Not Applicable Urine Crystals Not Applicable Urine Bacteria Not Applicable Urine Mucus Not Applicable Ur Culture Indicated? C&S Done As Ordered Urine Glucose Negative COVID-19 Source Nasopharynx SARS-CoV-2 (PCR) Negative Influenza Type A (PCR) Negative Influenza Type B (PCR) Negative RSV (PCR) Negative 01/28/24 01/28/24 01/29/24 18:10 21:30 05:44 WBC 15.70 H RBC 3.79 L Hgb 9.7 L Hct 31.4 L MCV 83 MCH 25.6 L MCHC 30.9 L RDW 16.6 H Plt Count 207 MPV 9.5 Immature Gran % 0.6 Neutrophils % 88.6 Lymphocytes % 2.6 Monocytes % 7.9 Eosinophils % 0.1 Basophils % 0.2 Nucleated RBC % 0.0 Absolute Neutrophils 13.91 H Absolute Lymphocytes 0.41 L Absolute Monocytes 1.24 H Absolute Eosinophils 0.02 Absolute Basophils 0.03 RBC Morphology VBG Lactate 2.7 H* 2.2 H* Sodium 140 Potassium 3.9 Chloride 105 Carbon Dioxide 23.8 Anion Gap 11.2 H BUN 44 H Creatinine 1.9 H Est GFR (CKD-EPI 2020) 36.56 Glucose 168 H Calcium 8.0 L Total Bilirubin 0.8 Conjugated Bilirubin 0.3 H AST 13 L ALT 16 Alkaline Phosphatase 89 Troponin I Total Protein 6.0 L Albumin 2.4 L TSH 0.61 Urine Color Urine Clarity Urine pH Ur Specific [place] Urine Protein Urine Ketones Urine Blood Urine Nitrite Urine Bilirubin Urine Urobilinogen Ur Leukocyte Esterase Urine RBC Urine WBC Ur Epithelial Cells Urine Crystals Urine Bacteria Urine Mucus Ur Culture Indicated? Urine Glucose COVID-19 Source SARS-CoV-2 (PCR) Influenza Type A (PCR) Influenza Type B (PCR) RSV (PCR) Time Spent with Patient Time Spent with Patient: 35-49 minutes Time was spent: preparing to see the patient(eg.review tests), obtaining and/or reviewing separately otained hiistory, ordering medications,tests, procedures, referring, communicating with other health wild animal caretaker, indepentently interpreting results and care coordination
[2024-01-29] MEDS: Apixaban 5 MG TAB PO ×2 (08:26→20:15)
[2024-01-29] MEDS: Magnesium Oxide 400 MG TAB PO (08:27)
[2024-01-29] MEDS: Tamsulosin 0.4 MG CAPCR PO (08:27)
[2024-01-29] MEDS: dilTIAZem CD 120 MG CAPCR PO (08:27)
[2024-01-29] MEDS: Metoprolol 50 MG TAB PO ×2 (08:27→20:15)
[2024-01-29] MEDS: Acetaminophen 325 MG TAB PO ×4 (08:27→21:50)
[2024-01-29] MEDS: levETIRAcetam 500 MG TAB PO ×2 (08:27→20:15)
[2024-01-29] MEDS: Insulin Aspart 300 UNITS/3 ML PEN SC ×3 (08:28→17:02)
[2024-01-29] MEDS: Normal Saline Flush 10 ML SYR (08:28)
[2024-01-29] MEDS: PIPERACILLIN/TAZO 4.5 GM in Normal Saline 100 ML IVPB ×3 (10:08→21:51)
[2024-01-29] MEDS: Miconazole 2% Topical Powder 85 GM BTL (11:20)
--- NOTE | 2024-01-29 12:07 | PDOC.CMIN ---
[facility] All Active Problems (Updated 01/29/24 @ 08:42 by Adis Peña) Hyperbilirubinemia (Acute) Atrial fibrillation with RVR (Acute) Altered mental state (Acute) Sepsis (Acute) Cardiomegaly (Acute) UTI (urinary tract infection) (Acute) Severe sepsis (Acute) Urinary retention (Acute) Partial epilepsy (Acute) 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 (Chronic) Seizure (Acute) New onset seizure without head trauma (Acute) Global aphasia (Acute) Stroke (Chronic) Obstructive sleep apnea syndrome (Chronic 08/10/08) cpap Dysplastic colon polyp (Acute) Urothelial carcinoma (Acute) 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) Screening for colon cancer (Acute) Recurrent nephrolithiasis (Acute) Medical History (Updated 01/29/24 @ 08:42 by Adis Peña) Obstructive uropathy Peripheral neuropathy Venous insufficiency History of depression Iron deficiency CARLOS A on CPAP Hypertension Type 2 diabetes mellitus Dementia Ulcer of [place] limited to breakdown of skin Acute kidney injury superimposed on chronic kidney disease Creatinine elevation Elevated WBCs Hyperglycemia Ureterolithiasis Diabetic leg ulcer Phimosis Venous insufficiency (chronic) (peripheral) Bladder cancer Gross hematuria Chronic venous stasis Noncompliance Anxiety (08/10/08) Asbestosis (08/10/08) Asthma (07/08/12) pt. denies this Carpal tunnel syndrome Olecranon bursitis Peripheral neuralgia Atopic conjunctivitis (10/22/13) Benign prostatic hyperplasia (02/25/13) Depressive disorder (02/25/13) Diabetes mellitus (02/25/13) Essential hypertension (06/24/13) Frequency of micturition (01/03/16) Glaucoma (10/22/13) B/L Hyperlipidemia (02/25/13) Hypermetropia (10/22/13) Hypogonadism Idiopathic peripheral neuropathy Low back pain (08/10/08) Nuclear senile cataract (10/22/13) Obesity (08/10/08) Aviva-en-y 02/2014 Osteoarthritis (08/10/08) BILATERAL KNEE replacements Peptic reflux disease (08/10/08) Presbyopia (10/22/13) Pterygium (08/10/08) LEFT EYE Regular astigmatism (10/22/13) Sensorineural hearing loss, bilateral (09/05/17) Tubular adenoma Tubular and tubulovillous adenoma 2011 --suggested repeat 2017 Umbilical hernia (08/18/12) Urgency of urination (01/03/16) Varicose veins of lower extremity (08/10/08) Urinary tract infection Chronic anticoagulation Atrial fibrillation Surgical History Hx of total knee arthroplasty Pt reports he has had a left and right knee repacement. Pt doesnt remember when and thinks he had it done at [facility] Status post cholecystectomy S/P cholecystectomy (~01/04/21) acute hemorrhagic cholecystitis and xanthogranulomatous inflammation S/P partial colectomy (~05/09/20) History of transurethral destruction of bladder lesion S/P colonoscopy Boo-2011- tubular and tubulovillous polyps Santiago- 2019- sessile serrated with low grade dysplacia, tubullovillous with high grade dysplacia and tubular adenomas Status post abdominoplasty (05/23/16) Status post tonsillectomy Status post total knee replacement B/L Vasectomy Aviva-en-y surgery for weight loss Ronnell Fundoplication Repair of umbilical hernia Laparoscopic Family History Mother Cancer Father Heart disease Sister Cancer Sister No problems noted. Brother No problems noted. Brother No problems noted. Brother No problems noted. Son No problems noted. Son No problems noted. Son No problems noted. Social History Smoking/Tobacco Use Status: Never Second Hand Exposure: Yes Smoking risk assessment performed?: Yes Alcohol Intake: never Drug use: Never Substance use type: does not use Caregiver/Support person: No Household members: other Details: son Housing: house Communication Needs: None Education Level: high school Do you need help understanding health information?: Never Pets and animals: No Do you think of yourself as: straight/heterosexual Current gender identity: male What is your relationship status?: How often do you talk on the phone with friends or family?: once per week How often do you get together with friends or relatives?: decline to answer How often do you attend holiness or jain services?: decline to answer Do you belong to any clubs or organized social groups?: no Panel score (0-1 are the most socially isolated patients): 0 What type of physical activity do you participate in: walking Duration: 15-30 minutes/day Frequency: 1-2 times per week Velia/Zoroastrianism: Islam Special velia needs: No Seatbelt use: always Helmet use: No Drive intox or ride w/intox commercial front load driver: No Do you feel safe at home: Yes Do you feel safe in your relationship?: Yes SDOH(Care Management) Screening Will the Patient Participate in the Screening?: Declined to provide
[2024-01-29] MEDS: MORPHine 2 MG/ML SYR IVP ×2 (18:53→21:10)
[2024-01-29] MEDS: Atorvastatin 40 MG TAB PO (20:15)
[2024-01-29] MEDS: Insulin Glargine 300 UNITS/3 ML PEN 10 UNITS SC (20:16)
[2024-01-29] MEDS: QUEtiapine 25 MG TAB PO (21:51)
[2024-01-29 23:13] LABS: Lab Add On Test DONE
[2024-01-29 23:14] LABS: Magnesium 1.9 mg/dL (1.8-2.4)
[2024-01-30] VITALS (21 sets, daily range): BP systolic 81–150; BP diastolic 52–137; PULSE 60–110; RESP 14–25; TEMP 36.3–37.9; O2SAT 94–98
--- NOTE | 2024-01-30 | DI.US_ITS ---
Exam(s) US RENAL EXAM: US RENAL CLINICAL HISTORY: urosepsis, r/o obstruction, stones TECHNIQUE: Ultrasound of both kidneys performed using standard protocol. COMPARISON: CT CT RENAL COLIC WO from 05/04/2023 FINDINGS: RIGHT KIDNEY: Measures 13.3 cm in length. No cysts evident. Normal cortical thickness and corticomedullary differen tiation .No solid masses No intrarenal calculi nor hydronephrosis. LEFT KIDNEY: Measures 12.7 cm in length. No cysts evident. Normal cortical thickness and corticomedullary differe ntiaion. No solids masses. There is a 4 millimeter hyperechoic focus in the lower pole region of the left kidney is probably a small nonobstructive calculus at this level. URINARY BLADDER: Romero catheter. Empty; therefore not able to be studied Please note that CT scan of April 2023 did reveal abnormal 5th diffuse thickening of the urinary bladd er wall. IMPRESSION: 1. No significant ultrasound findings in the right kidney 2. 4 millimeter hyperechoic focus in the lower pole region of the left kidney noted which may be a n onobstructive calculus.. There are no calculi seen in the left kidney on the CT scan of 05/04/2023. 3. Urinary bladder was not able to be studied as it contains a Romero catheter and this collapsed joni und the Romero catheter. DATA REPOSITORY:
[2024-01-30] MEDS: PIPERACILLIN/TAZO 4.5 GM in Normal Saline 100 ML IVPB ×3 (04:07→19:45)
[2024-01-30] MEDS: MORPHine 2 MG/ML SYR IVP ×2 (06:04→22:47)
[2024-01-30] MEDS: Levothyroxine 50 MCG TAB PO (06:04)
[2024-01-30 06:46] LABS: Abs Immature Grans 0.08 10^3/uL (0.0-0.06); Absolute Basophil Count 0.04 10^3/uL (0.0-0.2); Absolute Lymphocyte Count 0.63 10^3/uL (1.2-3.4); Absolute Monocyte Count 0.89 10^3/uL (0.1-0.8); Basophils % 0.4; Eosinophils % 2.9; HCT 28.1 % (40.0-50.0); Immature Grans % 0.7; Lymphocytes % 5.8; MCH 25.5 pg (27.0-33.0); MCV 82 fL (80-95); MPV 9.5 fL (8.0-11.0); Monocytes % 8.2; Platelet Count 186 10^3/uL (130-400); RBC 3.41 10^6/uL (4.36-5.78); RDW 16.7 % (11.8-14.1); RDW-SD 50.5 fL; WBC 10.87 10^3/uL (4.4-10.8)
[2024-01-30 06:48] LABS: Absolute Eosinophil Count 0.32 10^3/uL (0.0-0.7); Absolute Neutrophil Count 8.91 10^3/uL (1.2-6.7)
[2024-01-30 06:53] LABS: Anion Gap 13.8 mmol/L (3-11); BUN 53 mg/dL (7-18); CO2 20.2 mmol/L (21.0-32.0); CREATININE 2.3 mg/dL (0.70-1.30); Calcium 7.7 mg/dL (8.5-10.1); Chloride 105 mmol/L (98-107); Estimated GFR 29.07 (mL/min/1.73m2); Glucose 138 mg/dL (74-106); Potassium 3.6 mmol/L (3.5-5.1); Sodium 139 mmol/L (136-145)
[2024-01-30 07:00] LABS: HGB 8.7 g/dL (13.5-17.5)
[2024-01-30] MEDS: Lactated Ringers 500 ML 250 ML IV ×2 (07:27→10:58)
[2024-01-30] MEDS: Normal Saline Flush 10 ML SYR IVP ×4 (07:30→22:48)
[2024-01-30] MEDS: Tamsulosin 0.4 MG CAPCR PO (08:21)
[2024-01-30] MEDS: Apixaban 5 MG TAB PO ×2 (08:21→19:45)
[2024-01-30] MEDS: Magnesium Oxide 400 MG TAB PO (08:21)
[2024-01-30] MEDS: levETIRAcetam 500 MG TAB PO ×2 (08:21→19:45)
--- NOTE | 2024-01-30 08:24 | CMPROGNOTE_ITS ---
Date of service: 01/30/24 Time of Service: 08:24 Care Management Progress Note Progress Note Text Progress Note Text: S/O:Eugene was sitting up in bed eating lunch when CM met with him. He was polite but minimally interactive. When questioned he confirmed that he is feeling better and that his lunch tastes good. He has not been out of bed yet and a PT consult has been requested. Per Rip, his son and fire equipment inspector helper, Eugene is independently ambulatory with a walker. CM spoke with Becky from [facility], Eugene' [facility] lead case manager. She voiced some concerns about Rip's ongoing ability to manage Eugene' needs. She shared that Eugene seems to be declining and Rip seems more stressed with his increased care needs. Becky asked if there was any thought about having Eugene go to short term rehab before returning home. CM informed her that a PT evaluation has not been completed yet so it is unknown if he would qualify. Additionally, Eugene would have to agree to go. Since he has been asking to go home since arrival, it is possible he may refuse. CM will follow up after the PT evaluation is completed. A: Eugene is a 73 year old man admitted on 01/28/24 with Sepsis P:Anticipate Eugene will discharge home with a resumption of services. If recommended by PT, he may transfer to a SNF for short term reahb before returning home. Eugene will follow up with with his PCP and plan of care as prescribed and transport with his son. CM will continue to support Eugene and a ssess for discharge concerns. SDOH(Care Management) Screening Will the Patient Participate in the Screening?: Declined to provide
--- NOTE | 2024-01-30 09:56 | W.PM.PROGNOT ---
Date of Service Date of service: 01/30/24 Time of Service: 09:56 Assessment and Plan Assessment and plan (1) Severe sepsis: Status: Acute Assessment and plan: source appears to be urinary, patient with low BP overnight and worsening creatinine to 2.3 and BUN 53, I think that he is still under resuscitated in volume. I gave him LR bolus of 500 mL this morning and his SBP came up from high 80's to low 100's and urine ouput picked up to 35 mL/hr. Will give him another bolus of LR 500 mL; he is eating and therefore should be able to take adequate oral liquids. will monitor but may need further iv fluids overnight need to use judiciously has he has cardiomegaly on his CXR. - blood cultures growing GNR, urine culture growing Klebsiella and one other GNR; Klebsiella is sensitive to Pip/Tazo and cephalosporines. continue his Zosyn (d#2 at renal adjusted doses) (did get Ceftriaxone in the E.D). -will check renal US to rule out stones, obstruction -repeat his blood cultures this morning to see if clearing while on Zosyn Critical care time spent interviewing and examining the patient, reviewing studies, discussing case with patient's nurse and consulting physicians was 40 minutes (2) UTI (urinary tract infection): Status: Acute Assessment and plan: as above, cultures pending. Thornton changed 01/27. Qualifiers: Urinary tract infection type: site unspecified Hematuria presence: with hematuria Qualified Code(s): N39.0 - Urinary tract infection, site not specified; R31.9 - Hematuria, unspecified (3) Cardiomegaly: Status: Acute Assessment and plan: He has no known history of CHF, looking and back the cardiomegaly on CXR is stable. He is not in CHF clinically. He had an ehco in 05/2023 with normal LVEF. I don't think we need to repeat echo now. I agree w/ Dr. Peña on this, however, if not improving w/ iv fluids then may need echo w/ look at IVC to further manage his volume status. (4) Urinary retention: Status: Acute Assessment and plan: Enlarged prostate. Has a chronic thornton, changed out given actue infection. (5) VERONICA (acute kidney injury): Status: Resolved Assessment and plan: On CKD stage 3. Likely prerenal due to acute illness. Improving with hydration. Holding lisinopril and furosemide. continue to hold lisinopril and furosemide. also will put parameters on his metoprolol and diltiazem (6) Atrial fibrillation with rapid ventricular response: Status: Resolved Assessment and plan: continue apixaban; put holding parameter on his metoprolol and diltiazem (7) Obstructive sleep apnea syndrome: Status: Chronic Assessment and plan: home CPAP (8) Chronic venous stasis: Assessment and plan: basic wound care to shins, wound care consult (9) Diabetes mellitus: Assessment and plan: A1c 7.1% in clinic. Holding metformin and oral semaglutide until he is improving. Given basal insulin and sliding scale. titrate up if sugars stay high. Agree w/ above. Qualifiers: Diabetes mellitus type: type 2 Diabetes mellitus halfway insulin use: with intermediate manager use Diabetes mellitus complication status: without complication Qualified Code(s): E11.9 - Type 2 diabetes mellitus without complications; Z79.4 - intermediate card tender (current) use of insulin (10) Partial epilepsy: Status: Acute Assessment and plan: COntinue low dose Keppra (11) 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: Status: Chronic Assessment and plan: Continue statin and anticoagulation. (12) Hyperbilirubinemia: Status: Acute Assessment and plan: normalized this morning Subjective Subjective Interval history since last seen: Patient denies any pain, nausea or vomiting. He also has not had any BM but denies any abdominal or flank pain. Exam Narrative Exam Narrative: Patient is alert, seems to be oriented at least to person, although he really is not conversant. Just answer yes or no to my questions (mostly no to everything I ask him), he follows simple commands, watches TV when I am not talking to him HEENT: no dysarthria, no facial asymmetry Neck: no overt JVD Lungs: clear anteriorly Heart: irregularly irregular, no appreciable murmur or rub; rhythm afib on the monitor at controlled rates of 80's Abdomen: soft, nontender but mildly distended, normal bowel sounds Legs: venous stasis skin changes, ulcerations over both pretibial areas are covered by mepilex dressings, no edema; he has cool feet w/ markedly decreased capillary refill; no palpable pulses (I have asked nursing to perform dopplers on his feet) Objective Last Vital Signs Temp 36.3 C L 01/30/24 07:51 Pulse 74 01/30/24 08:55 Resp 18 01/30/24 08:55 BP 99/58 L 01/30/24 08:55 Pulse Ox 98 01/30/24 08:55 Laboratory Results - last 24 hr 01/29/24 01/30/24 05:44 05:45 WBC 10.87 H RBC 3.41 L Hgb 8.7 L Hct 28.1 L MCV 82 MCH 25.5 L MCHC 31.0 L RDW 16.7 H Plt Count 186 MPV 9.5 Immature Gran % 0.7 Neutrophils % 82.0 Lymphocytes % 5.8 Monocytes % 8.2 Eosinophils % 2.9 Basophils % 0.4 Nucleated RBC % 0.0 Absolute Neutrophils 8.91 H Absolute Lymphocytes 0.63 L Absolute Monocytes 0.89 H Absolute Eosinophils 0.32 Absolute Basophils 0.04 Sodium 139 Potassium 3.6 Chloride 105 Carbon Dioxide 20.2 L Anion Gap 13.8 H BUN 53 H Creatinine 2.3 H Est GFR (CKD-EPI 2020) 29.07 Glucose 138 H Calcium 7.7 L Magnesium 1.9 Add-On Test Request DONE Time Spent with Patient Time Spent with Patient: 35-49 minutes Time was spent: preparing to see the patient(eg.review tests), ordering medications,tests, procedures, referring, communicating with other health healthcare economics manager, indepentently interpreting results, counseling the patient and care coordination
--- NOTE | 2024-01-30 11:44 | PHA.REVIEW2 ---
Pharmacy Admission Review Admission Clinical Review Admission Pharmacy Review: (Updated 01/29/24 @ 08:42 by Adis Peña) Hyperbilirubinemia (Acute) Cardiomegaly (Acute) UTI (urinary tract infection) (Acute) Severe sepsis (Acute) Urinary retention (Acute) Partial epilepsy (Acute) No Known Allergies Allergy (Verified 01/28/24 14:44) Resuscitation Status DNR Height 5 ft 10 in Weight 86 kg Pharmacy Admission Review Renal Dosing Renal Dosing: BUN 53 mg/dL (7-18) H 01/30/24 05:45 Creatinine 2.3 mg/dL (0.70-1.30) H 01/30/24 05:45 Medications needing adjustments: Intervened (CrCl 34 mL/min) List of meds needing interventions: Changed Zosyn from 4g q6h to 4g q8h due to worsened renal function Anticoagulation Anticoagulation: Hgb 8.7 g/dL (13.5-17.5) L 01/30/24 05:45 Hct 28.1 % (40.0-50.0) L 01/30/24 05:45 Plt Count 186 10^3/uL (130-400) 01/30/24 05:45 Creatinine 2.3 mg/dL (0.70-1.30) H 01/30/24 05:45 DVT Prophylaxis: Reviewed Medications: Apixaban (5mg PO BID) Relevant Labs Relevant Labs: Sodium 139 mmol/L (136-145) 01/30/24 05:45 Potassium 3.6 mmol/L (3.5-5.1) 01/30/24 05:45 Chloride 105 mmol/L (98-107) 01/30/24 05:45 Magnesium 1.9 mg/dL (1.8-2.4) 01/29/24 05:44 Electrolytes, C-Reactive P, ESR: Reviewed (Hgb decreased from 9.7 to 8.7) DM Control DM Control: Glucose 138 mg/dL (74-106) H 01/30/24 05:45 Finger Stick Blood Glucose 137 0730 Finger Stick Blood Glucose 137 0730 DM Control: Reviewed Insulin Dosing, Diabetic Medication: Has order for SS insulin and nightly glargine. Home meds of metformin and Rybelsus on hold while inpatient. Cardiac Review Cardiac Review: Troponin I 57 ng/L (< or =60) 01/28/24 14:55 Blood Pressure 101/75 1025 Blood Pressure 99/58 0855 Blood Pressure 98/65 0751 Blood Pressure 97/58 0614 Blood Pressure 97/58 0602 Blood Pressure 85/58 0401 Blood Pressure 84/59 0201 Blood Pressure 89/54 0119 Blood Pressure 81/52 0001 BP, HR, EF%: Reviewed (BP and HR WNL, BP has been low most of the morning) QTc Review QTc: Reviewed (QTc 517 from 01/27) List meds needing interventions: Current medications are okay IV to PO Switch IV Medications: Reviewed (Zosyn) Home Meds Home Med List reviewed: Reviewed Relevent Home Meds Not ordered & why?: Lisinopril (on hold due to VERONICA), furosemide (on hold due to VERONICA), metformin (has SS coverage) and Rybelsus (has SS coverage) Current Meds Current Medication Order Review: Reviewed Pharmacy Antibiotic Review Pharmacy Antibiotic Activity: 48 hour review and C/S review Comments: Patient is on Zosyn 4.5g q8h, day 2 for UTI/bacteremia. WBC decreased from 15.7 to 10.87. Patient did have an elevated temp this morning of 37.6 at 0119. Urine culture growing K. pneumoniae and blood growing gram negative chandni. Repeat blood cultures are pending.
[2024-01-30] MEDS: Senna TAB 1 TAB PO ×2 (12:01→22:47)
[2024-01-30] MEDS: Polyethylene Glycol 3350 17 GM PACKET PO (12:01)
[2024-01-30] MEDS: Insulin Aspart 300 UNITS/3 ML PEN SC ×2 (12:01→16:25)
[2024-01-30] MEDS: dilTIAZem CD 120 MG CAPCR PO (13:29)
--- NOTE | 2024-01-30 13:38 | PT.INNT ---
PT Notes Visit Reasons: Severe Sepsis, UTI Attempted to treat patient at 13:25. Spent 10 minutes in patient room. He answered a few questions, but then refused to participate for screening or getting out of bed. Sitting upright in bed with IV in right arm. Kept bending right elbow to rest head occluding IV. Was able to better support head with pillow in hopes of letting IV complete. Will try again tomorrow.
[2024-01-30] MEDS: Acetaminophen 325 MG TAB PO (15:56)
[2024-01-30] MEDS: Metoprolol 50 MG TAB PO (19:45)
[2024-01-30] MEDS: Atorvastatin 40 MG TAB PO (19:45)
[2024-01-30] MEDS: Insulin Glargine 300 UNITS/3 ML PEN 10 UNITS SC (20:07)
[2024-01-30] MEDS: QUEtiapine 25 MG TAB PO (22:47)
[2024-01-31] VITALS (9 sets, daily range): BP systolic 100–143; BP diastolic 60–82; PULSE 67–93; RESP 14–24; TEMP 36.5–37.6; O2SAT 99–100
[2024-01-31] MEDS: PIPERACILLIN/TAZO 4.5 GM in Normal Saline 100 ML IVPB ×3 (05:03→21:04)
[2024-01-31] MEDS: Normal Saline Flush 10 ML SYR IVP ×3 (05:04→22:14)
[2024-01-31] MEDS: Levothyroxine 50 MCG TAB PO (05:51)
[2024-01-31 06:08] LABS: Abs Immature Grans 0.03 10^3/uL (0.0-0.06); Absolute Basophil Count 0.04 10^3/uL (0.0-0.2); Absolute Eosinophil Count 0.29 10^3/uL (0.0-0.7); Absolute Lymphocyte Count 0.76 10^3/uL (1.2-3.4); Absolute Monocyte Count 0.83 10^3/uL (0.1-0.8); Basophils % 0.5; Eosinophils % 3.4; HCT 28.6 % (40.0-50.0); HGB 9.2 g/dL (13.5-17.5); Immature Grans % 0.3; Lymphocytes % 8.8; MCHC 32.2 % (32.0-36.0); MCV 81 fL (80-95); MPV 9.9 fL (8.0-11.0); Monocytes % 9.6; Neutrophils % 77.4; Platelet Count 199 10^3/uL (130-400); RBC 3.54 10^6/uL (4.36-5.78); RDW 16.6 % (11.8-14.1); RDW-SD 48.8 fL; WBC 8.65 10^3/uL (4.4-10.8)
[2024-01-31 06:37] LABS: ALT 23 U/L (16-63); AST 26 U/L (15-37); Alkaline Phosphatase 95 U/L (46-116); Anion Gap 12.3 mmol/L (3-11); BUN 43 mg/dL (7-18); Bilirubin, Total 0.5 mg/dL (0.2-1.0); CO2 22.7 mmol/L (21.0-32.0); CREATININE 2.2 mg/dL (0.70-1.30); Calcium 7.7 mg/dL (8.5-10.1); Chloride 106 mmol/L (98-107); Estimated GFR 30.66 (mL/min/1.73m2); Glucose 120 mg/dL (74-106); Magnesium 2.2 mg/dL (1.8-2.4); Potassium 3.8 mmol/L (3.5-5.1); Sodium 141 mmol/L (136-145); Total Protein 5.7 g/dL (6.4-8.2)
[2024-01-31] MEDS: levETIRAcetam 500 MG TAB PO ×2 (08:10→20:00)
[2024-01-31] MEDS: Tamsulosin 0.4 MG CAPCR PO (08:10)
[2024-01-31] MEDS: Metoprolol 50 MG TAB PO ×2 (08:10→20:00)
[2024-01-31] MEDS: Magnesium Oxide 400 MG TAB PO (08:11)
[2024-01-31] MEDS: dilTIAZem CD 120 MG CAPCR PO (08:11)
[2024-01-31] MEDS: Apixaban 5 MG TAB PO ×2 (08:11→20:00)
--- NOTE | 2024-01-31 09:02 | PDOC.CMPRO ---
Date of service: 01/31/24 Time of Service: 09:03 Care Management Progress Note Progress Note Text Progress Note Text: S/O:Eugene was sitting up in bed when CM met with him. He was more interactive today and answered questions appropriately. His son Rip came to visit and met with CM. Rip informed CM that he feels Eugene would benefit from short term rehab. CM asked Eugene about it and at first he shook his head no. After some discussion, Eugene did agree to have referrals sent to several SNFs including [facility] and [facility], [facility] and [facility]. Rip asked to include [facility] as well but they have no male beds and do not expect any soon. Eugene had a PT evaluation today and the recommendation is for SNF vs PT. A: Eugene is a 73 year old man admitted on 01/28/24 with Sepsis P:Anticipate Eugene will discharge home with a resumption of services. If recommended by PT, he may transfer to a SNF for short term reahb before returning home. Eugene will follow up with with his PCP and plan of care as prescribed and transport with his son. CM will continue to support Eugene and assess for discharge concerns. SDOH(Care Management) Screening Will the Patient Participate in the Screening?: Declined to provide
--- NOTE | 2024-01-31 12:41 | IN_ITS ---
Date of service: 01/31/24 Time of Service: 12:15 PT Notes Visit Reasons: Severe Sepsis, UTI Date: 01/31/24 Referring Doctor: Perez Andrade PT Orders: PT CONSULT: Extended stay-weakness Precautions: Contact precautions, fall risk Patient Profile/Admitting Diagnosis: 73 y o male admitted with UTI and sepsis, with progressive weakness as a result. He fell at home resulting in ER visit and medical work up, admitted on 01/28/24. Requires PT evaluation to assist with discharge planning. Social History/Home Situation: Per case management records patient lives with son, who is his kiln cleaner, and son reports he uses a walker. Eugene reporting he does not use a walker. Eugene reports he lives in a one story home, with no stairs to enter. He is usually independent with all bed mobility, transfers, and household ambulation. Unable to communicate his usual endurance with ADL's and household tasks. Equipment Owned/DME: RW Subjective: Prefers to stay lying in bed, not interesting in moving but agrees to PT consult. No discomfort reported. Expressive aphasia limits communication. Objective: General Observation: Lying in hospital bed, L anterior hermosillo wound bleeding - nursing notified and presents for dressing. R hermosillo would well covered. He is just finishing lunch, which he is able to do independently. Mental Status: Alert to person, not able to clearly report place - could be due to aphasia. Appears in no distress ROM: Right Upper Extremity: Grossly WFL Left Upper Extremity: Grossly WFL Right Lower Extremity: Grossly WFL Left Lower Extremity: Grossly WFL Strength: Right Upper Extremity: Grossly 4/5 Left Upper Extremity: Grossly 4/5 Right Lower Extremity: Grossly 4+/5 of hip flex, quad, HS, DF Left Lower Extremity: Grossly 4+/5 of hip flex, quad, HS, DF Bed Mobility/Transfers: Mod A x 1 supine 45 deg HOB to EOB STS CG to RW Stand to sit from RW CG Bed to Chair, chair to bed RW CG EOB to supine independent Max A x 2 for repositioning Gait: RW, CG, 30 ft x 2 - patient unable to leave room due to precautions - he p refers not to gown Balance: Static Sitting: Good Dynamic Sitting: Fair Static Standing: Fair with RW and CG Dynamic Standing: Fair with RW and CG Stage 4 Balance Test Time (seconds) Feet together 0 Partial tandem 0 Tandem 0 One foot 0 Special Tests: Mobility Limitations Standardized Measure [facility] AM-PAC 6 clicks Basic Mobility Inpatient Short Form: 61% disability Informed Consent/Education: Patient instructed in purpose of PT consult and plan of care. Treatment: Initial evaluation [id number] Assessment: Patient is a 73 year old male referred to physical therapy services with reason for PT evaluation of functional ability and safety with admitted diagnosis of weakness evolved from UTI and sepsis. Patient presents with with strength, balance, and gait impairments related to acute medical issues, which is declined from his baseline of reported independent ambulation with RW (per son), and inability to get out of bed independently. Patient would be appropriate for discharge home only in the even he has 24/ care able to assist with his bed mobility and supervision with household ambulation, hygiene and self care needs. If this is available, [facility] PT service required to improve safety, and progress toward baseline. His progress over the next few days will be telling to his appropriate discharge decisions, he will be home with [facility] PT and nursing service vs short rehab stay to gain strength and function. She requires skilled PT intervention to maximize safety mobility to allow for safe transition home once medically stable, and attend to below deficits. Impairment level findings: Balance impairment Global weakness Impairments are contributing to the following functional limitations: Requires assist for bed mobility Requires supervision for ambulation with RW Requires CG for transfers Patient is assessed as moderate complexity based on the following: History: Dependent on caregiver All Active Problems (Updated 01/28/24 @ 18:44 by Adis Peña) Cardiomegaly (Acute) UTI (urinary tract infection) (Acute) Severe sepsis (Acute) Urinary retention (Acute) Partial epilepsy (Acute) 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 (Chronic) Seizure (Acute) New onset seizure without head trauma (Acute) Global aphasia (Acute) Stroke (Chronic) Obstructive sleep apnea syndrome (Chronic 08/10/08) cpap Dysplastic colon polyp (Acute) Urothelial carcinoma (Acute) 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) Screening for colon cancer (Acute) Recurrent nephrolithiasis (Acute) Medical History (Updated 01/28/24 @ 18:44 by Adis Peña) Obstructive uropathy Peripheral neuropathy Venous insufficiency History of depression Iron deficiency CARLOS A on CPAP Hypertension Type 2 diabetes mellitus Dementia Ulcer of hermosillo limited to breakdown of skin Acute kidney injury superimposed on chronic kidney disease Creatinine elevation Elevated WBCs Hyperglycemia Ureterolithiasis Diabetic leg ulcer Phimosis Venous insufficiency (chronic) (peripheral) Bladder cancer Gross hematuria Chronic venous stasis Noncompliance Anxiety (08/10/08) Asbestosis (08/10/08) Asthma (07/08/12) pt. denies thisCarpal tunnel syndrome Olecranon bursitis Peripheral neuralgia Atopic conjunctivitis (10/22/13) Benign prostatic hyperplasia (02/25/13) Depressive disorder (02/25/13) Diabetes mellitus (02/25/13) Essential hypertension (06/24/13) Frequency of micturition (01/03/16) Glaucoma (10/22/13) B/L Hyperlipidemia (02/25/13) Hypermetropia (10/22/13) Hypogonadism Idiopathic peripheral neuropathy Low back pain (08/10/08) Nuclear senile cataract (10/22/13) Obesity (08/10/08) Aviva-en-y 02/2014 Osteoarthritis (08/10/08) BILATERAL KNEE replacements Peptic reflux disease (08/10/08) Presbyopia (10/22/13) Pterygium (08/10/08) LEFT EYE Regular astigmatism (10/22/13) Sensorineural hearing loss, bilateral (09/05/17) Tubular adenoma Tubular and tubulovillous adenoma 2011 --suggested repeat 2017 Umbilical hernia (08/18/12) Urgency of urination (01/03/16) Varicose veins of lower extremity (08/10/08) Urinary tract infection Chronic anticoagulation Atrial fibrillation Surgical History Hx of total knee arthroplasty Pt reports he has had a left and right knee repacement. Pt doesnt remember when and thinks he had it done at [facility] Status post cholecystectomy S/P cholecystectomy (~01/04/21) acute hemorrhagic cholecystitis and xanthogranulomatous inflammationS/P partial colectomy (~05/09/20) History of transurethral destruction of bladder lesion S/P colonoscopy Boo-2011- tubular and tubulovillous polyps Santiago- 2019- sessile serrated with low grade dysplacia, tubullovillous with high grade dysplacia and tubular adenomasStatus post abdominoplasty (05/23/16) Status post tonsillectomy Status post total knee replacement B/LVasectomy Aviva-en-y surgery for weight lossNissen Fundoplication Repair of umbilical hernia Laparoscopic Examination: impairment and functional limitations as noted above Presentation: evolving Decision Making: easy Goals: Goals X1 week 1. Supine-Sit : distant supervision 2. Sit-Supine : distant supervision 3. Sit-Stand : supervision RW 4. Stand-Sit : supervision RW 5. Bed-Chair : supervision RW 6. Chair-Bed : supervision RW 7. Gait : 30 ft RW distant supervision, level ground 8. Bed mobility: distant supervision Plan of Care/Treatment Plan: 1-2x/day, 7 days/week x 1 week. Plan of care has been reviewed with the CARTON STAMPER providing the service under Physical Therapy direction. Initiate Physical Therapy intervention for strengthening, bed mobility, transfers, gait, stairs, balance training, use of assistive device. DISCHARGE RECOMMENDATIONS: Home with caregiver with HHPT service vs short stay rehab pending patient progress toward goals. TREATMENT CODE/TIME: 30 min, [id number] Milka Matson, MPT [facility]
--- NOTE | 2024-01-31 13:35 | PGE_ITS ---
Date of Service Date of service: 01/31/24 Time of Service: 13:35 Assessment and Plan Assessment and plan (1) UTI (urinary tract infection): Status: Acute Assessment and plan: Romero changed 01/27, continue abx Qualifiers: Hematuria presence: with hematuria Urinary tract infection type: site unspecified Qualified Code(s): N39.0 - Urinary tract infection, site not specified; R31.9 - Hematuria, unspecified (2) Cardiomegaly: Status: Acute Assessment and plan: Stable (3) VERONICA (acute kidney injury): Status: Resolved Assessment and plan: continue to hold lisinopril and furosemide (4) Atrial fibrillation with rapid ventricular response: Status: Resolved Assessment and plan: continue apixaban, metoprolol and diltiazem (5) Obstructive sleep apnea syndrome: Status: Chronic Assessment and plan: home CPAP (6) Partial epilepsy: Status: Acute Assessment and plan: Continue low dose Keppra (7) 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: Status: Chronic Assessment and plan: Continue statin and anticoagulation. (8) Hyperbilirubinemia: Status: Resolved Assessment and plan: normalized this morning (9) Urinary retention: Status: Resolved (10) Severe sepsis: Status: Resolved Assessment and plan: Discussed with Dr Andrade Subjective Subjective Patient reports: no new complaints, feels better and tolerating a regular diet; denies diarrhea, nausea or vomiting Interval history since last seen: Patient denies any pain, nausea or vomiting. Exam Narrative Exam Narrative: General: Pleasant elderly male patient, sitting up in bed, answering questions, no complaints HEENT: EOMI, MMM Heart: irregularly irregular rhythm, no m/r/g Lungs: CTAB Abdomen: soft, nontender, nondistended Extremities: no edema BLEs Psych Mental Status: other (aphasia) Speech and Movement: other Mood: anxious mood and other (aphasia) Affect: labile affect Objective Last Vital Signs Temp 36.6 C 01/30/24 23:06 Pulse 69 01/31/24 08:16 Resp 24 01/31/24 08:17 BP 129/60 01/31/24 08:16 Pulse Ox 96 01/30/24 20:11 Laboratory Results - last 24 hr 01/31/24 05:45 WBC 8.65 RBC 3.54 L Hgb 9.2 L Hct 28.6 L MCV 81 MCH 26.0 L MCHC 32.2 RDW 16.6 H Plt Count 199 MPV 9.9 Immature Gran % 0.3 Neutrophils % 77.4 Lymphocytes % 8.8 Monocytes % 9.6 Eosinophils % 3.4 Basophils % 0.5 Nucleated RBC % 0.0 Absolute Neutrophils 6.70 Absolute Lymphocytes 0.76 L Absolute Monocytes 0.83 H Absolute Eosinophils 0.29 Absolute Basophils 0.04 Sodium 141 Potassium 3.8 Chloride 106 Carbon Dioxide 22.7 Anion Gap 12.3 H BUN 43 H Creatinine 2.2 H Est GFR (CKD-EPI 2020) 30.66 Glucose 120 H Calcium 7.7 L Magnesium 2.2 Total Bilirubin 0.5 AST 26 ALT 23 Alkaline Phosphatase 95 Total Protein 5.7 L Albumin 2.0 L Time Spent with Patient Time Spent with Patient: 25-34 minutes Time was spent: preparing to see the patient(eg.review tests), ordering medications,tests, procedures, referring, communicating with other health health care sanitary technician, indepentently interpreting results, counseling the patient and care coordination
[2024-01-31] MEDS: Insulin Aspart 300 UNITS/3 ML PEN SC (16:33)
[2024-01-31 18:56] LABS: C Diff PCR Negative (Negative)
[2024-01-31] MEDS: Atorvastatin 40 MG TAB PO (20:00)
[2024-01-31] MEDS: QUEtiapine 25 MG TAB PO (20:00)
[2024-01-31] MEDS: Insulin Glargine 300 UNITS/3 ML PEN 10 UNITS SC (21:04)
[2024-01-31] MEDS: Acetaminophen 325 MG TAB PO (23:56)
[2024-02-01] VITALS: BP 120/94; PULSE 79; RESP 16; TEMP 36.2; O2SAT 97
[2024-02-01] MEDS: PIPERACILLIN/TAZO 4.5 GM in Normal Saline 100 ML IVPB ×3 (05:00→19:41)
[2024-02-01] MEDS: Levothyroxine 50 MCG TAB PO (06:02)
[2024-02-01 06:41] LABS: Abs Immature Grans 0.02 10^3/uL (0.0-0.06); Absolute Basophil Count 0.03 10^3/uL (0.0-0.2); Absolute Eosinophil Count 0.28 10^3/uL (0.0-0.7); Absolute Lymphocyte Count 0.87 10^3/uL (1.2-3.4); Absolute Monocyte Count 0.59 10^3/uL (0.1-0.8); Absolute Neutrophil Count 3.99 10^3/uL (1.2-6.7); Basophils % 0.5; Eosinophils % 4.8; HCT 29.9 % (40.0-50.0); HGB 9.3 g/dL (13.5-17.5); Immature Grans % 0.3; Lymphocytes % 15.1; MCH 25.4 pg (27.0-33.0); MCHC 31.1 % (32.0-36.0); MCV 82 fL (80-95); MPV 9.2 fL (8.0-11.0); Monocytes % 10.2; Neutrophils % 69.1; Platelet Count 203 10^3/uL (130-400); RBC 3.66 10^6/uL (4.36-5.78); RDW 16.8 % (11.8-14.1); RDW-SD 50.2 fL; WBC 5.78 10^3/uL (4.4-10.8)
[2024-02-01 07:13] LABS: Anion Gap 9.7 mmol/L (3-11); BUN 32 mg/dL (7-18); CO2 24.3 mmol/L (21.0-32.0); CREATININE 1.8 mg/dL (0.70-1.30); Calcium 8.1 mg/dL (8.5-10.1); Chloride 108 mmol/L (98-107); Estimated GFR 39.01 (mL/min/1.73m2); Glucose 139 mg/dL (74-106); Magnesium 2.2 mg/dL (1.8-2.4); Potassium 3.7 mmol/L (3.5-5.1); Sodium 142 mmol/L (136-145)
[2024-02-01 07:29] VITALS: BP 146/96; PULSE 71; RESP 16; TEMP 35.7; O2SAT 97
[2024-02-01] MEDS: Tamsulosin 0.4 MG CAPCR PO (08:04)
[2024-02-01] MEDS: Apixaban 5 MG TAB PO ×2 (08:04→19:40)
[2024-02-01] MEDS: Metoprolol 50 MG TAB PO ×2 (08:04→19:41)
[2024-02-01] MEDS: levETIRAcetam 500 MG TAB PO ×2 (08:04→19:40)
[2024-02-01] MEDS: Acetaminophen 325 MG TAB PO ×2 (08:05→18:33)
[2024-02-01] MEDS: dilTIAZem CD 120 MG CAPCR PO (08:05)
[2024-02-01] MEDS: Magnesium Oxide 400 MG TAB PO (08:05)
--- NOTE | 2024-02-01 09:53 | PT.INTREAT ---
PT Notes Visit Reasons: Severe Sepsis, UTI Inpatient Physical Therapy Treatment Note [facility] Date: 02/01/24 SUBJECTIVE: Eugene states that he is feeling much better. He is willing to try to do his PT. OBJECTIVE: []? PAIN: none VITALS: ?closely monitored by nsg. Therapeutic Activities ([id number]): Direct one-on-one instruction in dynamic activities to improve functional performance. ? BED MOBILITY/TRANSFERS? pt sitting up in recliner. ? Sit-stand: min A/ Mod A of 1 ? Stand-sit: CGA ? Provided skilled cues and instruction on performance and technique throughout. ? GAIT? Assistive Device: FWW? Weight bearing: full Assist: CGA ? Distance:?30'x2? Deviation: slow eugene. ? Therapeutic Exercises (10420i4): Direct one-on-one instruction in therapeutic exercises to develop strength, endurance, range of motion and flexibility. ? Exercises ?LAQ, seated marching, hip ADD/ABD x10 each. Cues to stay awake. ? ASSESSMENT:?had difficulties staying awake during ex routine. He reports that he has not been able to get much rest as he is constantly interrupted every time he gets to sleep. Ambulated well without LOB, SOB or fatigue. Still requires quite a bit of assistance to get out of chair. PLAN: will continue to progress his strength and endurance while improving his functional mobility following PT POC. TREATMENT CODE/TIME: 25 min. [id number], [id number]
[2024-02-01 10:47] LABS: Campylobacter PCR Negative (Negative); Salmonella PCR Negative (Negative); Shiga Toxin PCR Negative (Negative); Shigella/Enteroinvasive Ecoli Negative (Negative)
[2024-02-01 11:23] VITALS: BP 123/88; PULSE 100; RESP 16; TEMP 36; O2SAT 94
[2024-02-01] MEDS: Insulin Aspart 300 UNITS/3 ML PEN SC ×2 (11:56→16:33)
[2024-02-01] MEDS: Normal Saline Flush 10 ML SYR IVP ×2 (11:58→19:41)
--- NOTE | 2024-02-01 14:22 | PGE_ITS ---
Date of Service Date of service: 02/01/24 Time of Service: 14:29 Assessment and Plan Assessment and plan (1) UTI (urinary tract infection): Status: Acute Assessment and plan: Romero changed 01/27, continue abx pip judith 4.5 gm IV q8h Qualifiers: Urinary tract infection type: site unspecified Hematuria presence: with hematuria Qualified Code(s): N39.0 - Urinary tract infection, site not specified; R31.9 - Hematuria, unspecified (2) Cardiomegaly: Status: Acute Assessment and plan: Stable (3) VERONICA (acute kidney injury): Status: Resolved Assessment and plan: continue to hold lisinopril and furosemide (4) Atrial fibrillation with rapid ventricular response: Status: Resolved Assessment and plan: continue apixaban, continue metoprolol and diltiazem. Heart rate - 78 AFib, no chest pain, no SOB; continue telemetry (5) Obstructive sleep apnea syndrome: Status: Chronic Assessment and plan: home CPAP (6) Partial epilepsy: Status: Acute Assessment and plan: Continue low dose Keppra (7) 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: Status: Chronic Assessment and plan: Continue statin and anticoagulation. (8) Hyperbilirubinemia: Status: Resolved Assessment and plan: 0.5 (9) Urinary retention: Status: Resolved (10) Severe sepsis: Status: Resolved Assessment and plan: Discussed with Dr Andrade Subjective Subjective Patient reports: no new complaints, tolerating liquids well, tolerating a regular diet and afebrile; denies flatus, diarrhea, nausea, vomiting or shortness of breath Interval history since last seen: Patient is sitting in bed, pleasant, denies complaints. He is to go to SNF sometime next week for strengthening. There are referrals out. Exam Narrative Exam Narrative: General: Pleasant elderly male patient, sitting up in bed, answering questions, no complaints, says yes or no appropriately HEENT: EOMI, MMM Heart: irregularly irregular rhythm, no m/r/g Lungs: CTAB Abdomen: soft, nontender, nondistended Extremities: no edema BLEs Psych Mental Status: other (aphasia) Speech and Movement: other Mood: anxious mood and other (aphasia) Affect: labile affect Objective Last Vital Signs Temp 36 C L 02/01/24 11:23 Pulse 100 H 02/01/24 11:23 Resp 16 04/27/24 11:23 BP 123/88 02/01/24 11:23 Pulse Ox 94 02/01/24 11:23 Laboratory Results - last 24 hr 01/31/24 02/01/24 11:50 06:11 WBC 5.78 RBC 3.66 L Hgb 9.3 L Hct 29.9 L MCV 82 MCH 25.4 L MCHC 31.1 L RDW 16.8 H Plt Count 203 MPV 9.2 Immature Gran % 0.3 Neutrophils % 69.1 Lymphocytes % 15.1 Monocytes % 10.2 Eosinophils % 4.8 Basophils % 0.5 Nucleated RBC % 0.0 Absolute Neutrophils 3.99 Absolute Lymphocytes 0.87 L Absolute Monocytes 0.59 Absolute Eosinophils 0.28 Absolute Basophils 0.03 Sodium 142 Potassium 3.7 Chloride 108 H Carbon Dioxide 24.3 Anion Gap 9.7 BUN 32 H Creatinine 1.8 H Est GFR (CKD-EPI 2020) 39.01 Glucose 139 H Calcium 8.1 L Magnesium 2.2 Stl C.difficile Tox PCR Negative Time Spent with Patient Time Spent with Patient: 35-49 minutes Time was spent: preparing to see the patient(eg.review tests), ordering medications,tests, procedures, referring, communicating with other health care team coordinator scheduler, indepentently interpreting results, counseling the patient and care coordination
[2024-02-01 14:34] VITALS: BP 147/81; PULSE 72; RESP 16; TEMP 36.4; O2SAT 99
[2024-02-01 19:35] VITALS: BP 153/103; PULSE 70; RESP 16; TEMP 37.1; O2SAT 99
[2024-02-01] MEDS: Atorvastatin 40 MG TAB PO (19:40)
[2024-02-01] MEDS: Insulin Glargine 300 UNITS/3 ML PEN 10 UNITS SC (20:35)
[2024-02-01] MEDS: QUEtiapine 25 MG TAB PO (21:04)
[2024-02-01] MEDS: MORPHine 2 MG/ML SYR IVP (21:05)
[2024-02-02] MEDS: MORPHine 2 MG/ML SYR IVP ×3 (00:11→20:26)
[2024-02-02] MEDS: PIPERACILLIN/TAZO 4.5 GM in Normal Saline 100 ML IVPB (04:34)
[2024-02-02] MEDS: Levothyroxine 50 MCG TAB PO (06:27)
[2024-02-02 07:05] LABS: Abs Immature Grans 0.02 10^3/uL (0.0-0.06); Absolute Basophil Count 0.03 10^3/uL (0.0-0.2); Absolute Eosinophil Count 0.34 10^3/uL (0.0-0.7); Absolute Lymphocyte Count 0.99 10^3/uL (1.2-3.4); Absolute Monocyte Count 0.57 10^3/uL (0.1-0.8); Absolute Neutrophil Count 4.08 10^3/uL (1.2-6.7); Basophils % 0.5; Eosinophils % 5.6; HCT 33.5 % (40.0-50.0); HGB 10.3 g/dL (13.5-17.5); Immature Grans % 0.3; Lymphocytes % 16.4; MCH 25.4 pg (27.0-33.0); MCHC 30.7 % (32.0-36.0); MCV 83 fL (80-95); MPV 9.5 fL (8.0-11.0); Monocytes % 9.5; Neutrophils % 67.7; Platelet Count 233 10^3/uL (130-400); RBC 4.06 10^6/uL (4.36-5.78); RDW 16.6 % (11.8-14.1); RDW-SD 50.2 fL; WBC 6.03 10^3/uL (4.4-10.8)
[2024-02-02 07:16] VITALS: BP 142/88; PULSE 80; RESP 16; TEMP 36.7; O2SAT 98
[2024-02-02 07:20] LABS: Anion Gap 9.1 mmol/L (3-11); BUN 28 mg/dL (7-18); CO2 26.9 mmol/L (21.0-32.0); CREATININE 1.8 mg/dL (0.70-1.30); Calcium 8.9 mg/dL (8.5-10.1); Chloride 107 mmol/L (98-107); Estimated GFR 39.01 (mL/min/1.73m2); Glucose 139 mg/dL (74-106); Magnesium 2.2 mg/dL (1.8-2.4); Potassium 4.2 mmol/L (3.5-5.1); Sodium 143 mmol/L (136-145)
[2024-02-02] MEDS: levETIRAcetam 500 MG TAB PO ×2 (08:30→20:14)
[2024-02-02] MEDS: Apixaban 5 MG TAB PO ×2 (08:31→20:13)
[2024-02-02] MEDS: dilTIAZem CD 120 MG CAPCR PO (08:31)
[2024-02-02] MEDS: Tamsulosin 0.4 MG CAPCR PO (08:31)
[2024-02-02] MEDS: Magnesium Oxide 400 MG TAB PO (08:31)
[2024-02-02] MEDS: Metoprolol 50 MG TAB PO ×2 (08:32→20:13)
[2024-02-02] MEDS: Polyethylene Glycol 3350 17 GM PACKET PO (08:33)
--- NOTE | 2024-02-02 09:36 | PT.INTREAT ---
PT Notes Visit Reasons: Severe Sepsis, UTI Inpatient Physical Therapy Treatment [facility] Date: 02/02/24 SUBJECTIVE: Don't leave me here. I don't want to be here any longer. OBJECTIVE: []? VITALS: ?monitored by nsg. Therapeutic Activities ([id number]): Direct one-on-one instruction in dynamic activities to improve functional performance. ? BED MOBILITY/TRANSFERS? Supine-sit: SBA? Sit-stand: CGA? Stand-sit: CGA ? Provided skilled cues and instruction on performance and technique throughout. GAIT? Assistive Device: FWW? Weight bearing:full Assist: CGA/SBA? Distance:? approx 175'? Deviation: slow eugene. Slow to turn corners.?performed sit to stand ex x4 from recliner with pillow under hips, CGA/min A of 1. ? ASSESSMENT:? much improvement with sit to stand transfers requiring less assistance. Was able to ambulate much greater distance this am, although pretty tired when we returned to room. No SOB of LOB PLAN: will continue to work on strength and endurance while progressing his functional mobility as per PT POC TREATMENT CODE/TIME: 20 min. [id number]
[2024-02-02] MEDS: cefTRIAXone 2 GM/50 ML BAG IVPB (10:04)
[2024-02-02] MEDS: Normal Saline Flush 10 ML SYR IVP (10:04)
[2024-02-02] MEDS: Insulin Aspart 300 UNITS/3 ML PEN SC ×2 (11:46→16:49)
[2024-02-02] MEDS: Acetaminophen 325 MG TAB PO ×2 (13:35→16:35)
--- NOTE | 2024-02-02 14:30 | PGE_ITS ---
Date of Service Date of service: 02/02/24 Time of Service: 14:31 Assessment and Plan Assessment and plan (1) UTI (urinary tract infection): Status: Acute Assessment and plan: Romero changed 01/27, was on zosyn, can downstep to ceftriaxone based on cultures. Qualifiers: Hematuria presence: with hematuria Urinary tract infection type: site unspecified Qualified Code(s): N39.0 - Urinary tract infection, site not specified; R31.9 - Hematuria, unspecified (2) Cardiomegaly: Status: Acute Assessment and plan: Stable (3) VERONICA (acute kidney injury): Status: Resolved Assessment and plan: continue to hold lisinopril and furosemide (4) Atrial fibrillation with rapid ventricular response: Status: Resolved Assessment and plan: continue apixaban, continue metoprolol and diltiazem. Heart rate - 78 AFib, no chest pain, no SOB; continue telemetry (5) Obstructive sleep apnea syndrome: Status: Chronic Assessment and plan: home CPAP (6) Partial epilepsy: Status: Acute Assessment and plan: Continue low dose Keppra (7) 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: Status: Chronic Assessment and plan: Continue statin and anticoagulation. (8) Hyperbilirubinemia: Status: Resolved Assessment and plan: 0.5 (9) Urinary retention: Status: Resolved (10) Severe sepsis: Status: Resolved Assessment and plan: stable, repeat blood cultures negative plan now for skilled rehab facility, referrals placed, case management following. Discussed with Dr Andrade Subjective Subjective Patient reports: no new complaints, tolerating liquids well, tolerating a regular diet and afebrile; denies shortness of breath Exam Const General: no acute distress Orientation: alert [facility] Head: normal to inspection Ears: external ears normal General nose exam: external nose normal Mouth: moist mucous membranes Eyes General: appearance normal, both eyes and all related structures Neck Neck: normal visual inspection Resp Effort & Inspection: normal respiratory effort and able to speak in complete sentences Auscultation: clear to auscultation bilaterally Cardio Jugular venous pressure: no JVD Heart Sounds: no murmurs Skin General skin exam: no rashes or lesions noted Neuro General: patient alert and patient oriented x3 Extrem General: normal to inspection Psych Mental Status: mental status grossly normal Objective Last Vital Signs Temp 36.7 C 02/02/24 07:16 Pulse 80 02/02/24 07:16 Resp 16 02/02/24 07:16 BP 142/88 H 02/02/24 07:16 Pulse Ox 98 02/02/24 07:16 Laboratory Results - last 24 hr 01/31/24 02/02/24 11:50 06:35 WBC 6.03 RBC 4.06 L Hgb 10.3 L Hct 33.5 L MCV 83 MCH 25.4 L MCHC 30.7 L RDW 16.6 H Plt Count 233 MPV 9.5 Immature Gran % 0.3 Neutrophils % 67.7 Lymphocytes % 16.4 Monocytes % 9.5 Eosinophils % 5.6 Basophils % 0.5 Nucleated RBC % 0.0 Absolute Neutrophils 4.08 Absolute Lymphocytes 0.99 L Absolute Monocytes 0.57 Absolute Eosinophils 0.34 Absolute Basophils 0.03 Sodium 143 Potassium 4.2 Chloride 107 Carbon Dioxide 26.9 Anion Gap 9.1 BUN 28 H Creatinine 1.8 H Est GFR (CKD-EPI 2020) 39.01 Glucose 139 H Calcium 8.9 Magnesium 2.2 Stool Campylobacter PCR Negative Stool Salmonella PCR Negative Stool Shigella PCR Negative Shiga Toxin (PCR) Negative Time Spent with Patient Time Spent with Patient: 25-34 minutes Time was spent: preparing to see the patient(eg.review tests), obtaining and/or reviewing separately otained hiistory, ordering medications,tests, procedures, indepentently interpreting results and counseling the patient
[2024-02-02 16:30] VITALS: BP 140/82; PULSE 72; RESP 16; TEMP 36.8; O2SAT 99
[2024-02-02 19:31] VITALS: BP 143/93; PULSE 86; RESP 16; TEMP 36.9; O2SAT 97
[2024-02-02] MEDS: Insulin Glargine 300 UNITS/3 ML PEN 10 UNITS SC (20:14)
[2024-02-02] MEDS: Atorvastatin 40 MG TAB PO (20:14)
[2024-02-02] MEDS: QUEtiapine 25 MG TAB PO (20:14)
[2024-02-03 03:28] VITALS: BP 168/104; PULSE 93; RESP 16; TEMP 36.7; O2SAT 98
[2024-02-03 03:56] VITALS: BP 150/104
[2024-02-03] MEDS: dilTIAZem CD 120 MG CAPCR PO (07:50)
[2024-02-03] MEDS: levETIRAcetam 500 MG TAB PO (07:50)
[2024-02-03] MEDS: Metoprolol 50 MG TAB PO (07:50)
[2024-02-03] MEDS: Magnesium Oxide 400 MG TAB PO (07:50)
[2024-02-03] MEDS: Polyethylene Glycol 3350 17 GM PACKET PO (07:50)
[2024-02-03] MEDS: Apixaban 5 MG TAB PO (07:50)
[2024-02-03] MEDS: Tamsulosin 0.4 MG CAPCR PO (07:50)
[2024-02-03] MEDS: Levothyroxine 50 MCG TAB PO (07:53)
[2024-02-03 08:35] VITALS: BP 159/97; PULSE 85; RESP 18; TEMP 36.7; O2SAT 98
--- NOTE | 2024-02-03 08:52 | PDOC.CMPRO ---
Date of service: 02/03/24 Time of Service: 08:52 Care Management Progress Note Progress Note Text Progress Note Text: S/O: Eugene was sitting in a chair with son Rip sitting next to him, when CM met with them. Eugene's primary nurse also joined in on the conversation. Pt and son decline SNF for STR and ask CM to arrange discharge home with Full [facility] Services. Eugene has global aphasia so communication is limited, however he indicates by nodding his head that he is in agreement with this plan. Rip is Eugene's paid caregiver through [employer] and feels that he will be able to manage his care with community supports. A lift assist will be required since Rip has stairs that lead up their apartment. CM will follow. A: Eugene is a 73 year old man admitted on 01/28/24 with Sepsis P:Anticipate Eugene will discharge home with a resumption of services. If recommended by PT, he may transfer to a SNF for short term reahb before returning home. Eugene will follow up with with his PCP and plan of care as prescribed and transport with his son. CM will continue to support Eugene and assess for discharge concerns. SDOH(Care Management) Screening Will the Patient Participate in the Screening?: Declined to provide
--- NOTE | 2024-02-03 09:12 | PT.INTREAT ---
PT Notes Visit Reasons: Severe Sepsis, UTI Date: 02/03/24 PRECAUTIONS: Standard Fall risk SUBJECTIVE: Pt in recliner when approached for therapy this morning, pt agreed to participating with therapy session. pt in bed when approached for therapy this afternoon, agreeable to participating with therapy. OBJECTIVE: ? PAIN: yes, generalized VITALS: monitored by nursing ? Therapeutic Activities [id number]: Direct one-on-one instruction in dynamic activities to improve functional performance. ?? BED MOBILITY/TRANSFERS? Rolling L/R: supervision Supine-sit: ?supervision ? Sit-supine: ? supervision? Sit-stand: ?CGA? Stand-sit: ?SBA? Bed-Chair:? SBA? Chair-bed: SBA Provided skilled cues and instruction on performance and technique throughout. Gait Training [id number]: Direct one-on-one instruction and skilled instruction in: Employing an assistive device Modified weight-bearing status Movement sequencing Turning and movement with proper form Provided verbal cues for equipment management and technique Provided instruction in gait pattern Patient education regarding pacing and breathing techniques to maximize activity tolerance? GAIT? Assistive Device: ?? FWW ? Weight bearing: FWB Assist: ? SBA? Distance:?? 150'?x1 (am), 150' x1 (pm)? Deviation: ? Slow eugene speed, stoop forward posture, low step height, short step length. ? ASSESSMENT:?Pt reports feeling very tired after gait training, refused further engagement and requested to get back in bed post session. pt requested to go to recliner post gait training. pt refused further engagement after gait training. PLAN: Continue with balance training, global strengthening and general conditioning for improved safety, mobility and activity tolerance until pt is ready for DC. TREATMENT CODE/TIME: [id number] 17mins (8:43-9:00am) [id number] 15mins (2:00-2:15pm)
[2024-02-03] MEDS: cefTRIAXone 2 GM/50 ML BAG IVPB (10:53)
[2024-02-03 11:28] VITALS: BP 110/65; PULSE 72; RESP 18; TEMP 37.1; O2SAT 99
[2024-02-03] MEDS: Normal Saline Flush 10 ML SYR IVP (11:45)
[2024-02-03] MEDS: Insulin Aspart 300 UNITS/3 ML PEN SC (11:48)
--- NOTE | 2024-02-03 13:04 | W.PM.DS.N ---
Date of service: 02/03/24 Time of Service: 13:04 DS: Diagnosis Discharge Diagnosis (1) UTI (urinary tract infection): Status: Acute (2) Cardiomegaly: Status: Acute (3) VERONICA (acute kidney injury): Status: Resolved (4) Atrial fibrillation with rapid ventricular response: Status: Resolved (5) Obstructive sleep apnea syndrome: Status: Chronic (6) Partial epilepsy: Status: Acute (7) 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: Status: Chronic (8) Hyperbilirubinemia: Status: Resolved (9) Urinary retention: Status: Resolved (10) Severe sepsis: Status: Resolved Discharge Plan Disposition Patient Disposition: Home W/Home Health Services Condition: Improving Discharge Details Reason For Visit: Severe Sepsis, UTI Admit Date/Time: 01/28/24 17:53 Admit Provider: Adis Peña Attending Provider: dAis Peña Primary Care Provider: David Massey Hospital Course Hospital Course: This is a 73-year-old male patient significant past medical history including but not limited to diabetes mellitus type 2 A-fib on apixaban CVA with global aphasia dementia seizure disorder chronic kidney disease chronic indwelling Romero catheter who presented to the emergency department after a fall. His workup in the emergency department was concerning for urinary tract infection he was started on antibiotics while cultures were pending. 24 hours after antibiotic initiation his Romero catheter was exchanged. He is slowly improved from his symptoms. Urine culture did grow Klebsiella pneumonia which was sensitive to zosyn which he was admitted on and downstepped to ceftriaxone with plan to discharge home on cefpodoxime. He has been eating and drinking and bowels functioning. Physical therapy had been following him and recommendations were for skilled level rehab but family and patient opted to be discharged to home with resumption of home health services to include nursing, PT/OT, medical management trainer. discussed with Dr Andrade Home Meds and New Rx's Prescriptions: New cefpodoxime 200 mg tablet 200 mg PO BID Qty: 14 0RF Rx Instructions: must administer with a meal/food Continued levetiracetam 500 mg tablet 500 mg PO BID Qty: 180 3RF metformin 1,000 mg tablet 1,000 mg PO BID insulin glargine [Lantus U-100 Insulin] 100 unit/mL solution 10 unit subcut QPM atorvastatin 40 mg tablet 40 mg PO DAILY insulin lispro [Humalog KwikPen Insulin] 100 unit/mL insulin pen 1 sliding scale dose subcut USEASDIRECTD metoprolol tartrate 50 mg tablet 50 mg PO BID Eliquis 5 mg tablet 5 mg PO BID Qty: 180 3RF furosemide 20 mg tablet 20 mg PO DAILY Patient Comments: Take 1 tablet by mouth every morning Dr. Cuellar- Cardiology tamsulosin [Flomax] 0.4 mg capsule 0.4 mg PO DAILY Qty: 10 0RF diltiazem HCl 120 mg capsule,extended release 24hr 120 mg PO DAILY magnesium oxide 400 mg magnesium tablet 400 mg PO DAILY Patient Comments: Take 1 tablet by mouth once a day lisinopril 5 mg tablet 5 mg PO DAILY levothyroxine 50 mcg tablet 50 mcg PO DAILY Patient Comments: Take 1 tablet by mouth once a day Take on an empty stomach 30 minutes before breakfast or other medications Discharge Instructions Instructions: Urinary Tract Infection in Men (DC) Stand Alone Forms: Nursing Discharge Form Referrals: David Massey MD [Primary Care Provider] - 02/11/24 10:45 am (1-2 weeks s/p inpt adm for UTI/sepsis ) Activity:: Activity as Tolerated Equipment/Supplies:: No Equipment Needed Diet:: As Tolerated Discharge Orders Discharge Orders: Discharge Order (Routine); Ordered 02/03/24 Ordered By: Leilani Keen Discharge Data Discharge Date/Time-TO BE ENTERED AT DEPARTURE: 02/03/24 15:49 DS: Summary Time Spent with Patient providing and/or coordinating discharge services: Greater than 30 minutes Status at Discharge Functional status at discharge: uses cane/walker Overall status at discharge: patient is progressing back to baseline Mental Status: mental status grossly normal Speech and Movement: speech and movement normal Mood: congruent mood Affect: normal affect Quality:SDOH Health Related Social Needs: No Data to Display Exam Const General: no acute distress Orientation: alert HENMT Head: normal to inspection Ears: external ears normal General nose exam: external nose normal Mouth: moist mucous membranes Eyes General: appearance normal, both eyes and all related structures Neck Neck: normal visual inspection Resp Effort & Inspection: normal respiratory effort and able to speak in complete sentences Auscultation: clear to auscultation bilaterally Cardio Jugular venous pressure: no JVD Heart Sounds: no murmurs Skin General skin exam: no rashes or lesions noted Neuro General: patient alert and patient oriented x3 Extrem General: normal to inspection Psych Mental Status: mental status grossly normal Speech and Movement: speech and movement normal Mood: congruent mood Affect: normal affect DS: Data Vitals/I&O Vitals and I&O: Vital Signs Temperature 37.1 C 02/03/24 11:28 Temperature Source Tympanic 02/03/24 11:28 Pulse 72 02/03/24 11:28 Pulse Rhythm Irregular 02/03/24 07:45 Pulse 81 01/31/24 08:17 Respiratory Rate 18 02/03/24 11:28 Respiratory Effort Normal, Non-Labored 02/03/24 07:45 Respiratory Depth Normal 02/03/24 07:45 Respiratory Pattern Normal 02/03/24 07:45 Blood Pressure 110/65 02/03/24 11:28 Blood Pressure Mean 81 01/31/24 08:16 Blood Pressure Position Supine 01/28/24 15:04 Pulse Oximetry 99 02/03/24 11:28 Oxygen Delivery Method Room Air 02/03/24 11:28 Oxygen Flow Rate 0 02/03/24 11:28 Pain Level 0 02/03/24 11:28 Comment per HOUSE DESIGNER, don't wake pt 02/02/24 03:11 Intake & Output 02/02/24 02/03/24 02/03/24 23:59 11:59 23:59 Intake Total 200 / 770 50 / 50 Output Total 750 / 2850 2099 Balance - / -2079 -2049 / Intake: IV 50 / 50 Oral 200 / 620 Output: Urine 750 / 2850 2099 Other: Urine Color Yellow Yellow Urine Appearance Clear Clear Stool Size Moderate Stool Characteristics Brown Data Completed and Pending Labs on day of discharge: Preliminary micro results at discharge 01/30/24 05:55 Blood Culture - Preliminary Blood NO GROWTH 96 HOURS 01/30/24 05:45 Blood Culture - Preliminary Blood NO GROWTH 96 HOURS PFS All Active Problems (Updated 01/31/24 @ 16:17 by Jeana Angeles NP) Atrial fibrillation with RVR (Acute) Altered mental state (Acute) Sepsis (Acute) Cardiomegaly (Acute) UTI (urinary tract infection) (Acute) Partial epilepsy (Acute) 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 (Chronic) Seizure (Acute) New onset seizure without head trauma (Acute) Global aphasia (Acute) Stroke (Chronic) Obstructive sleep apnea syndrome (Chronic 08/10/08) cpap Dysplastic colon polyp (Acute) Urothelial carcinoma (Acute) 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) Screening for colon cancer (Acute) Recurrent nephrolithiasis (Acute) Medical History (Updated 01/31/24 @ 16:17 by Jeana Angeles NP) Obstructive uropathy Peripheral neuropathy Venous insufficiency History of depression Iron deficiency CARLOS A on CPAP Hypertension Type 2 diabetes mellitus Dementia Ulcer of [place] limited to breakdown of skin Acute kidney injury superimposed on chronic kidney disease Creatinine elevation Elevated WBCs Hyperglycemia Ureterolithiasis Diabetic leg ulcer Phimosis Venous insufficiency (chronic) (peripheral) Bladder cancer Gross hematuria Chronic venous stasis Noncompliance Anxiety (08/10/08) Asbestosis (08/10/08) Asthma (07/08/12) pt. denies this Carpal tunnel syndrome Olecranon bursitis Peripheral neuralgia Atopic conjunctivitis (10/22/13) Benign prostatic hyperplasia (02/25/13) Depressive disorder (02/25/13) Diabetes mellitus (02/25/13) Essential hypertension (06/24/13) Frequency of micturition (01/03/16) Glaucoma (10/22/13) B/L Hyperlipidemia (02/25/13) Hypermetropia (10/22/13) Hypogonadism Idiopathic peripheral neuropathy Low back pain (08/10/08) Nuclear senile cataract (10/22/13) Obesity (08/10/08) Aviva-en-y 02/2014 Osteoarthritis (08/10/08) BILATERAL KNEE replacements Peptic reflux disease (08/10/08) Presbyopia (10/22/13) Pterygium (08/10/08) LEFT EYE Regular astigmatism (10/22/13) Sensorineural hearing loss, bilateral (09/05/17) Tubular adenoma Tubular and tubulovillous adenoma 2011 --suggested repeat 2017 Umbilical hernia (08/18/12) Urgency of urination (01/03/16) Varicose veins of lower extremity (08/10/08) Urinary tract infection Chronic anticoagulation Atrial fibrillation Surgical History Hx of total knee arthroplasty Pt reports he has had a left and right knee repacement. Pt doesnt remember when and thinks he had it done at [facility] Status post cholecystectomy S/P cholecystectomy (~01/04/21) acute hemorrhagic cholecystitis and xanthogranulomatous inflammation S/P partial colectomy (~05/09/20) History of transurethral destruction of bladder lesion S/P colonoscopy Haddad-2011- tubular and tubulovillous polyps Henderson2019- sessile serrated with low grade dysplacia, tubullovillous with high grade dysplacia and tubular adenomas Status post abdominoplasty (05/23/16) Status post tonsillectomy Status post total knee replacement B/L Vasectomy Aviva-en-y surgery for weight loss Ronnell Fundoplication Repair of umbilical hernia Laparoscopic Family History Mother Cancer Father Heart disease Sister Cancer Sister No problems noted. Brother No problems noted. Brother No problems noted. Brother No problems noted. Son No problems noted. Son No problems noted. Son No problems noted. Social History Smoking/Tobacco Use Status: Never Second Hand Exposure: Yes Smoking risk assessment performed?: Yes Alcohol Intake: never Drug use: Never Substance use type: does not use Caregiver/Support person: No Household members: other Details: son Housing: house Communication Needs: None Education Level: high school Do you need help understanding health information?: Never Pets and animals: No Do you think of yourself as: straight/heterosexual Current gender identity: male What is your relationship status?: How often do you talk on the phone with friends or family?: once per week How often do you get together with friends or relatives?: decline to answer How often do you attend hoahaoism or orthodox services?: decline to answer Do you belong to any clubs or organized social groups?: no Panel score (0-1 are the most socially isolated patients): 0 What type of physical activity do you participate in: walking Duration: 15-30 minutes/day Frequency: 1-2 times per week Velia/Muslim: Yarsani Special velia needs: No Seatbelt use: always Helmet use: No Drive intox or ride w/intox national dedicated truck driver: No Do you feel safe at home: Yes Do you feel safe in your relationship?: Yes Time Spent with Patient Time Spent with Patient: 45-69 minutes Time was spent: preparing to see the patient(eg.review tests), obtaining and/or reviewing separately otained hiistory, ordering medications,tests, procedures, indepentently interpreting results and counseling the patient
--- NOTE | 2024-02-03 13:07 | PDOC.CMDIS ---
Date of service: 02/03/24 Time of Service: 13:07 LACE Index Scoring Tool Questions: Length of Stay (in days): 4 - 6 Was the patient admitted via the E.D.?: Yes Comorbidities: Cerebrovascular Disease (CVA) E.D. Visits: 2 Answers: Total Score: 10 Risk of Readmission: High Risk Care Management Discharge Plan Reason for Hospitalization: VERONICA Discharge Plan: Eugene is discharged home with resumption of caregiver support and [facility] RN, homemaking services, add PT/OT. He will transport via private vehicle with son, lift assist is coordinated by . Eugene will follow up with his community providers and his discharge plan of care as instructed. Patient/Family Education Needs: Review discharge instructions, limitations, medications and plan to follow up with community providers. Discuss ask me three and goals of self care. Services Needed at Discharge: Home Health Care Services (Resumption of services) SDOH Health Related Social Needs: No Data to Display
== END 2024-02-03 15:49 | disposition home health service (06) | DRG 872 ==
LOC: ER 16:35 → ICU 18:57 → MS 01-31 09:48
PROVIDERS: Internal Medicine; Nurse Practitioner Family; Admitting Provider Family Medicine; Emergency Provider Emergency Medicine; PCP Family Medicine; Visit Provider Family Medicine
DX: A41.9 Sepsis, unspecified organism (principal); N39.0 Urinary tract infection, site not specified; N17.9 Acute kidney failure, unspecified; G40.109 Localization-related (focal) (partial) symptomatic epilepsy and epileptic syndromes with simple partial seizures, not intractable, without status epilepticus; N13.8 Other obstructive and reflux uropathy; R65.20 Severe sepsis without septic shock; R31.9 Hematuria, unspecified; R33.9 Retention of urine, unspecified; I48.91 Unspecified atrial fibrillation; G47.33 Obstructive sleep apnea (adult) (pediatric); I87.2 Venous insufficiency (chronic) (peripheral); Z79.4 Long term (current) use of insulin; Z79.01 Long term (current) use of anticoagulants; Z79.899 Other long term (current) drug therapy; E80.6 Other disorders of bilirubin metabolism; F03.90 Unspecified dementia, unspecified severity, without behavioral disturbance, psychotic disturbance, mood disturbance, and anxiety; N18.30 Chronic kidney disease, stage 3 unspecified; W19.XXXA Unspecified fall, initial encounter; I69.320 Aphasia following cerebral infarction; E11.42 Type 2 diabetes mellitus with diabetic polyneuropathy; N40.1 Benign prostatic hyperplasia with lower urinary tract symptoms; Z96.653 Presence of artificial knee joint, bilateral; Z85.51 Personal history of malignant neoplasm of bladder; I51.7 Cardiomegaly; B96.1 Klebsiella pneumoniae [K. pneumoniae] as the cause of diseases classified elsewhere
CPT/HCPCS: 00123; 36415; 76770; 80048; 80053; 80076; 87040; 87077; 87493; 87505; 87637; 93005; 96365; 96367; 97110; 97162; 97530; 99285; 70450; 71046; 72125; 81003; 81015; 83605; 83735; 84443; 84484; 85025; 87086; 87186; 93010; 99223; 99231; 99232; 99239; 99291; J0131; J0692; J0696; J1815; J2270; J2543

== ENCOUNTER 2024-04-27 14:43 | Emergency (ER) | payer MEDICARE, SELFPAY ==
--- OUTSIDE RECORDS SUMMARY | 2024-04-27 14:52 | XMS_ITS | Encounter Summary ---
Author Organization [facility] Address [facility] [place] [address] Care Team Providers Care Console Attendant Name Role Phone Davdi Massey MD Primary Care Provider [phone] Encounter Details Date Type Department Care Team (Late st Contact Info) Description 05/23/2022 9:40 AM EDT Anesthesia [place] [address] Yolis Rodriguez MD [facility] [place] [address] Anesthesia Record Procedure Summary Procedure Name Responsible Anesthesiologist Anesthesia Start Time Anesthesia Stop Time ENDOVENOUS ABLATION THERAPY OF INCOMPETENT VEIN, EXTREMITY, FIRST VEIN (WRVU 5.3) (Right: Leg Upper) Events No events on file. Meds * Agents No agents on file. * Blood No blood administrations on file. Lines, Drains, and Airways Type Details Placement Removal Drain/Device Site 05/17/16; 1006; Left ; abdomen; collapsible closed device; 19 yulia 05/17/16 1006 by Krys Barrera RN Drain/Device Site 05/17/16; 1008; Righ t; abdomen; collapsible closed device; 19 yulia 05/17/16 1008 by Krys Barrera RN Incision 10/13/21; 1228; urethral meatus 10/13/21 1228 by Calli Carrera RN Incision 03/09/22; 1417 03/09/22 1417 by Amish Cuevas RN documented in this encounter Social History Tobacco Use Types Packs/Day Years Used Date Smoking Tobacco: Never Smokeless Tobacco: Never Alcohol Use Standard Drinks/Week Comments No 0 (1 standard drink = 0.6 oz pur e alcohol) 4x year Sex and Gender Information Value Date Recorded Sex Assigned at Not on file Gender Identity Not on file Sexual Orientation Not on file documented as of this encounter OR Notes * Anesthesia Preprocedure Evaluation - Gabriel Chatman MD - 05/22/2022 4:58 PM EDT Pre-Anesthesia Evaluation for: Eugene Rueda a 71 y.o. male. Procedure(s): ENDOVENOUS ABLATION THERAPY OF INCOMPETENT VEIN, EXTREMITY, FIRST VEIN (WRVU 5.3) Patient Active Problem List Diagnosis Date Noted ??? Venous insufficiency of both lower extremities 01/10/2022 ??? Venous stasis ulcer 01/10/2022 ??? Preoperative Class II obesity, S/P gastric bypass February 2014 12/01/2013 ??? Decreased hearing, wears hearing aid right ear 11/08/2013 ??? Hyperlipidemia 11/08/2013 ??? Chronic anticoagulation 11/08/2013 ??? History of renal stone ~1980s 11/08/2013 ??? CARLOS A (obstructive sleep apnea) 07/28/2013 ??? Type 2 diabetes mellitus 07/28/2013 ??? GERD (gastroesophageal reflux disease) 07/28/2013 ??? Varicose veins 07/28/2013 ??? Carpal tunnel syndrome 07/28/2013 ??? Asbestosis(501) 07/28/2013 ??? Pterygium 07/28/2013 ??? Fatigue 07/28/2013 ??? Depression 07/28/2013 ??? Hip arthritis 07/10/2013 ??? S/P knee replacement 07/10/2013 ??? HTN (hypertension) 07/10/2013 ??? Atrial fibrillation 07/10/2013 ??? PVD (peripheral vascular disease) 07/10/2013 ??? DM (diabetes mellitus) 07/10/2013 Past Medical History: Diagnosis Date ??? Blood disorder ??? Circulatory disease ??? Diabetes Past Surgical History: Procedure Laterality Date ??? CHOLECYSTECTOMY ??? PRO CYSTOSCOPY, INSERT URETERAL STENT Left 10/13/2021 CYSTO, STENT PLACEMENT (WRVU 2.82) performed by Romario Womack Jr., MD at [facility] ??? PRO CYSTOURETHROSCOPY N/A 03/09/2022 CYSTO, CYSTOURETHROSCOPY, DIAGNOSTIC (WRVU 2.23) performed by Romario Womack Jr., MD at [facility] ??? PRO CYSTOURETHROSCOPY, URETER CATHETER Left 10/13/2021 CYSTO, RETROGRADE, URETEROPYELOGRAPHY (WRVU 2.37) performed by Romario Womack Jr., MD at [facility] ??? PRO EXCISE EXCESS SKIN TISSUE, ABDOMEN N/A 05/17/2016 ABDOMINOPLASTY performed by Adis Membreno MD at [facility] OR ??? PRO LAP GASTRIC BYPASS/KEYSHA-EN-Y 02/08/2014 @LAPAROSCOPIC GASTROPLASTY, performed by Wally Pfeiffer MD at [facility] OR ??? PRO LAP, DIAGNOSTIC ABDOMEN 02/10/2014 LAPAROSCOPY, DIAGNOSTIC, ABDOMEN performed by Wally Pfeiffer MD at [facility] OR ??? PRO REPAIR INCISIONAL HERNIA, REDUCIBLE N/A 05/17/2016 REPAIR INITIAL INCISIONAL OR VENTRAL HERNIA REDUCIBLE [facility] ??? PRO UNLISTED LAPAROSCOPIC PROCEDURE ESOPHAGUS 02/08/2014 LAPAROSCOPIC REVISION OF DELROY FUNDOPLASTY performed by Wally Pfeiffer MD at [facility] OR ??? PRO UPPER GI ENDOSCOPY, BIOPSY 12/11/2013 UPPER GASTROINTESTINAL ENDOSCOPY,WITH BIOPSY SINGLE OR MULTIPLE performed by Wally Pfeiffer MDat [facility] ENDOSCOPY ??? PRO UPPER GI ENDOSCOPY, DIAGNOSTIC 12/25/2013 EGD, UPPER GI ENDOSCOPY performed by Wally Pfeiffer MD at [facility] ENDOSCOPY ??? PRO UPPER GI ENDOSCOPY, DIAGNOSTIC 02/08/2014 ENDOSCOPY, UPPER GI, DIAGNOSTIC, WITH OR WITHOUT SPECIMENS performed by Wally Pfeiffer MD at [facility] OR ??? TONSILLECTOMY ??? TOTAL KNEE ARTHROPLASTY bilateral ??? VASECTOMY Social History Tobacco Use ??? Smoking status: Never Smoker ??? Smokeless tobacco: Never Used Substance Use Topics ??? Alcohol use: No Comment: 4x year Social History Substance and Sexual Activity Drug Use No No Known Allergies Medications: MAR and/or home medications have been reviewed. Physical Exam: Preprocedure Vitals Current as of 05/22/22 1658 No BP, pulse, respiration, SpO2, or temperature recorded. Height: Weight: BMI: IBW: Anesthesia Physical Exam Last Filed Perioperative Cognitive Screening None Anesthesia Plan: ASA 3 general, ID:Eugene Rueda 71 y.o. male presenting for PMH significant for afib (apixaban, metoprolol, diltiazem), HTN (lisinopril), PVD, DMT2 (dapaglifozin, jardiance,metformin, lantus), GERD, depression, asbestosis, CARLOS A. ADR: No Known Allergies Cardiac Hx: ECHO 2013 - LVEF 60%. Left atrium moderately dilated. + MR (mild), + TR (mild) Anesthesia Hx: iGel (4 and 5). 7.0 ETT, G1V (cricoid), MAC4 Plan: GAred SHELL ppx, standard ASA monitors, adequate PIV access Gabriel Chatman MD 05/22/2022 Teletypesetter Monitor Pager #[phone] Informed Consent: Anesthesia Screening documented in this encounter Plan of Treatment Upcoming Encounters Date Type Department Care Team (Late st Contact Info) Description 05/15/2024 10:00 AM EDT [place] [address] Catrachito Mehta MD [facility] [place] [address] documented as of this encounter Visit Diagnoses Not on filedocumented in this encounter Care Teams Console Attendant Relationship Specialty Start Date End Date David Massey MD [address] [place] [address] PCP - General Emergency Medicine 03/31/21 documented as of this encounter
--- OUTSIDE RECORDS SUMMARY | 2024-04-27 14:52 | XMS_ITS | Encounter Summary ---
Author Organization [facility] Address [facility] [place] [address] Care Team Providers Care Attending Anesthesiologist Name Role Phone David Massey MD Primary Care Provider [phone] Reason for Referral * Consultation (Routine) - Authorized Specialty Diagnoses / Procedures Referred By Sonal dawson Referred To Contact Urology Diagnoses Retention of urine, unspecified ? SURGERY FOR URINARY RETENTION Tamir Osuna MD [address] [place] [address] Mesfin Pina MD [facility] [place] [address] Referral ID Status Reason Start Date Expiration Date Visits Requested Visits Authorized [id number] Authorized Consult, Test & Treat PCP Updated and/or Approved 06/12/2023 06/11/2024 6 6 Encounter Details Date Type Department Care Team (Latest Contact Info) Description 06/12/2023 Transcribe Orders eDH Incoming Referrals [phone] Tamir Osuna MD [address] [place], [place] [id number] Retention of urine, unspecified Social History Tobacco Use Types Packs/Day Years Used Date Smoking Tobacco: Never Smokeless Tobacco: Never Alcohol Use Standard Drinks/Week Comments No 0 (1 standard drink = 0.6 oz pur e alcohol) 4x year Sex and Gender Information Value Date Recorded Sex Assigned at Not on file Gender Identity Not on file Sexual Orientation Not on file documented as of this encounter Plan of Treatment Upcoming Encounters Date Type Department Care Team (Late st Contact Info) Description 05/15/2024 10:00 AM EDT [place] [address] Catrachito Mehta MD [facility] [address] UROLOGY [place] [address] Scheduled Referrals Name Type Priority Associated Diagnoses Orde r Schedule Referral to Urology Outpatient Referral Routine Retention of urine, unspecified Ordered: 06/12/2023 documented as of this encounter Visit Diagnoses Diagnosis Retention of urine, unspecified documented in this encounter Care Teams Attending Anesthesiologist Relationship Specialty Start Date End Date David Massey MD [address] [place] [address] PCP - General Emergency Medicine 03/31/21 documented as of this encounter
--- OUTSIDE RECORDS SUMMARY | 2024-04-27 14:52 | XMS_ITS | Encounter Summary ---
Author Organization [facility] Address [facility] [place] [address] Care Team Providers Care Parts Counterperson Name Role Phone David Massey MD Primary Care Provider Encounter Details Date Type Department Care Team (Late st Contact Info) Description 12/03/2022 [place] [address] Constantine Crenshaw MD [facility] [place] [address] Social History Tobacco Use Types Packs/Day Years Used Date Smoking Tobacco: Never Smokeless Tobacco: Never Alcohol Use Standard Drinks/Week Comments No 0 (1 standard drink = 0.6 oz pur e alcohol) 4x year Sex and Gender Information Value Date Recorded Sex Assigned at Not on file Gender Identity Not on file Sexual Orientation Not on file documented as of this encounter Miscellaneous Notes * Telephone Encounter - Constantine Crenshaw MD - 12/03/2022 1:[address] Jacome at [facility] called about this 71 yo M admitted after stroke yesterday. MRI shows small right cerebellar and left frontal infarctions. Has dementia and has AF is supposed to be on apixaban and lives with son. Unclear adherence. Suggested they resume apixaban if not contraindicated. No other assistance requested. documented in this encounter Plan of Treatment Upcoming Encounters Date Type Department Care Team (Late st Contact Info) Description 05/15/2024 10:00 AM EDT [place] [address] Catrachito Mehta MD [facility] [place] [address] documented as of this encounter Visit Diagnoses Not on filedocumented in this encounter Care Teams Parts Counterperson Relationship Specialty Start Date End Date David Massey MD [address] [place] [address] PCP - General Emergency Medicine 03/31/21 documented as of this encounter
--- OUTSIDE RECORDS SUMMARY | 2024-04-27 14:52 | XMS_ITS | Encounter Summary ---
Author Organization [facility] [place] [address] Care Team Providers Care Comb Capper Name Role Phone David Massey MD Primary Care Provider [phone] Encounter Details Date Type Department Care Team (Late st Contact Info) Description 12/26/2022 [place] [phone] Unknown None Social History Tobacco Use Types Packs/Day Years [...] encounter Miscellaneous Notes * Telephone Encounter - Félix Garcia - 12/26/2022 8:51 AM EDT Patient calling in: Caller: Cezar If not PT/Relation to PT: [facility] Best number to reach caller: [phone] Reason for the Call: Checking on status of referral To check on the status oftheir referral: If not, what is the reason for their call: Previous Neurology Information Questions: Has the patient seen another Neurologist: No If yes, when and where: Has the patient had any imaging done: Yes If yes, when and where: 12/03/22 [facility] - CT Head & Spine 12/03/22 [facility] - MR Head documented in this encounter Plan of Treatment Upcoming Encounters Date Type Department Care Team (Late st Contact Info) Description 05/15/2024 10:00 AM EDT [place] [address] Catrachito Mehta MD [facility] [place] [address] documented as of this encounter Visit Diagnoses Not on filedocumented in this encounter Care Teams Comb Capper Relationship Specialty Start Date End Date David Massey MD [address] [place] [address] PCP - General Emergency Medicine 03/31/21 documented as of this encounter
--- OUTSIDE RECORDS SUMMARY | 2024-04-27 14:52 | XMS_ITS | Encounter Summary ---
Author Organization [facility] [place] [address] Care Team Providers Care Cardiology Tech Name Role Phone David Massey MD Primary Care Provider [phone] Encounter Details Date Type Department Care Team (Late Contact Info) Description 04/27/2022 Telephone Pre-[place] [address] Adis Lubin RN Social History Tobacco Use Types Packs/Day Years Used Date Smoking Tobacco: Never Smokeless Tobacco: Never Alcohol Use Standard Drinks/Week Comments No 0 (1 standard drink = 0.6 oz pur e alcohol) 4x year Sex and Gender Information Value Date Recorded Sex Assigned at Not on file Gender Identity Not on file Sexual Orientation Not on file documented as of this encounter Progress Notes * Adis Lubin, RN - 04/27/2022 9:17 AM EDT I contacted the patient to instruct him to hold his pre-op Farxiga and Jardiance x 3 days per [facility] Diabetes Medication Adjustment Guidelines. Patient states understanding of same. documented in this encounter Plan of Treatment Upcoming Encounters Date Type Department Care Team (Late Contact Info) Description 05/15/2024 10:00 AM EDT Office [place] [address] Catrachito Mehta MD [facility] [place] [address] documented as of this encounter Visit Diagnoses Not on filedocumented in this encounter Care Teams Cardiology Tech Relationship Specialty Start Date End Date David Massey MD [address] [place] [address] PCP - General Emergency Medicine 03/31/21 documented as of this encounter
--- OUTSIDE RECORDS SUMMARY | 2024-04-27 14:52 | XMS_ITS | Encounter Summary ---
[place] [address] Care Team Providers Care Grey Goods Marker Name Role Phone David Massey MD Primary Care Provider [phone] Reason for Visit * Auth/Cert Specialty Diagnoses / Procedures Referred By Sonal dawson Referred To Contact Diagnoses venous insufficiency with stasis ulcers Procedures PRO ENDOVENOUS RF, 1ST VEIN ENDOVENOUS ABLATION THERAPY OF INCOMPETENT VEIN, EXTREMITY, FIRST VEIN (WRVU 5.3) Wally López III, MD [address] [place] [address] [facility] Referral ID Status Reason Start Date Expiration Date Visits Re quested Visits Authorized [id number] 1 1 Encounter Details Date Type Department Care Team ([facility] st Contact Info) Description 05/02/2022 Surgery [place] [address] Wally López III, MD [address] [place] [address] Not Performed ENDOVENOUS ABLATION THERAPY OF INCOMPETENT VEIN, EXTREMITY, FIRST VEIN (WRVU 5.3) Social History Tobacco Use Types Packs/Day Years [...] 10:00 AM EDT [place] [address] Catrachito Mehta MD [facility] [place] [place] [address] documented as of this encounter Procedures Procedure Name Priority Date/Time Associated Diagnosis Comments ENDOVENOUS ABLATION THERAPY OF INCOMPETENT VEIN, EXTREMITY, FIRST VEIN Routine 05/02/2022 8:08 AM EDT Venous insufficiency of both lower extremities documented in this encounter Visit Diagnoses Diagnosis Venous insufficiency of both lower extremities documented in this encounter Care Teams Grey Goods Marker Relationship Specialty Start Date End Date David Massey MD [address] [place] [address] PCP - General Emergency Medicine 03/31/21 documented as of this encounter
--- OUTSIDE RECORDS SUMMARY | 2024-04-27 14:52 | XMS_ITS | Encounter Summary ---
Author Organization [facility] [place] [address] Care Team Providers Care Fixture Builder Name Role Phone David Massey MD Primary Care Provider [phone] Encounter Details Date Type Department Care Team (Late Contact Info) Description 05/23/2022 Orders [place] [phone] Aline Pate RN Venous insufficiency of both lower extremities; Venous stasis ulcer with varicose veins, unspecified site, unspecified ulcer stage Social History Tobacco Use Types Packs/Day Years [...] Upcoming Encounters Date Type Department Care Team ([facility] Contact Info) Description 05/15/2024 10:00 AM EDT [place] [address] Catrachito Mehta MD [facility] [place] [address] documented as of this encounter Visit Diagnoses Diagnosis Venous insufficiency of both lower extremities Venous stasis ulcer with varicose veins, unspecified site, unspecified ulcer stage documented in this encounter Care Teams Fixture Builder Relationship Specialty Start Date End Date David Massey MD [address] [place] [address] PCP - General Emergency Medicine 03/31/21 documented as of this encounter
--- OUTSIDE RECORDS SUMMARY | 2024-04-27 14:52 | XMS_ITS | Encounter Summary ---
Author Organization [facility] [place] [address] Care Team Providers Care Research Hydraulic Engineer Name Role Phone David Massey MD Primary Care Provider [phone] Encounter Details Date Type Department Care Team (Late Contact Info) Description 12/03/2022 1:25 PM EST Ancillary Procedure [place] [phone] Constantine Crenshaw MD [facility] [place] [address] Social History Tobacco Use Types Packs/Day Years [...] 10:00 AM EDT Office [place] [phone] Catrachito Mehta MD [facility] [place] [address] documented as of this encounter Procedures Procedure Name Priority Date/Time Associated Diagnosis Comments FILM LIBRARY STORAGE ONLY CT HEAD AND SPINE Routine 12/03/2022 1:17 PM EST documented in this encounter Results * Film Library- Storage Only CT Head And Spine (12/03/2022 1:17 PM EST) Narrative RAD - 12/03/2022 1:17 PM EST This exam is auto-finalizing. It's purpose is for storage only. Constantine Crenshaw MD IMG FILM LIBRARY O RDERABLES Performing Organization Address City/State/[facility] Co de Phone Number [place], [place] documented in this encounter Visit Diagnoses Not on filedocumented in this encounter Care Teams Research Hydraulic Engineer Relationship Specialty Start Date End Date David Massey MD [address] [place] [address] PCP - General Emergency Medicine 03/31/21 documented as of this encounter
--- OUTSIDE RECORDS SUMMARY | 2024-04-27 14:52 | XMS_ITS | Encounter Summary ---
Author Organization [facility] [place] [address] Care Team Providers Care Workers Compensation Claims Analyst Name Role Phone David Massey MD Primary Care Provider [phone] Encounter Details Date Type Department Care Team (Late Contact Info) Description 05/28/2022 Telephone [place] [phone] Claire Stuart Social History Tobacco Use Types Packs/Day Years [...] encounter Miscellaneous Notes * Telephone Encounter - Claire Stuart - 05/28/2022 8:14 AM EDT 06/19 - I spoke with Mr. Rueda, at this time he does not want to proceed with R Great Saphenous Radiofrequency ablation. He will contact our office if and when he chooses to move forward. Case sheet scanned in. 06/06 - LVM for call back to reschedule LVM for call back to reschedule Ablation. documented in this encounter Plan of Treatment Upcoming Encounters Date Type Department Care Team (Late Contact Info) Description 05/15/2024 10:00 AM EDT [place] [address] Catrachito Mehta MD [facility] [place] [address] documented as of this encounter Visit Diagnoses Not on filedocumented in this encounter Care Teams Workers Compensation Claims Analyst Relationship Specialty Start Date End Date David Massey MD [address] [place] [address] PCP - General Emergency Medicine 03/31/21 documented as of this encounter
--- OUTSIDE RECORDS SUMMARY | 2024-04-27 14:52 | XMS_ITS | Encounter Summary ---
Author Organization [facility] [place] [address] Care Team Providers Care Sales Project Engineer Name Role Phone David Massey MD Primary Care Provider [phone] Encounter Details Date Type Department Care Team (Late Contact Info) Description 05/02/2022 Telephone [place] [address] Claire Stuart Social History Tobacco Use Types [...] * Telephone Encounter - Claire Stuart - 05/02/2022 9:48 AM EDT I spoke with Mr. Rueda - unfortunately he could not make it in for Surgery today with Dr. Jacinto to family emergency. We have rescheduled him for 05/23/22. Letter sent. documented in this encounter Plan of Treatment Upcoming Encounters Date Type Department Care Team (Late Contact Info) Description 05/15/2024 10:00 AM EDT Office [place] [address] Catrachito Mehta MD [facility] [place] [address] documented as of this encounter Visit Diagnoses Not on filedocumented in this encounter Care Teams Sales Project Engineer Relationship Specialty Start Date End Date David Massey MD [address] [place] [address] PCP - General Emergency Medicine 03/31/21 documented as of this encounter
--- OUTSIDE RECORDS SUMMARY | 2024-04-27 14:52 | XMS_ITS | Encounter Summary ---
Author [facility] [place] [address] Care Team Providers Care Videographer Name Role Phone David Massey MD Primary Care Provider [phone] Encounter Details Date Type Department Care Team (Late Contact Info) Description 05/23/2022 Telephone [place] [phone] Claire Stuart Social History Tobacco Use Types [...] * Telephone Encounter - Claire Stuart - 05/23/2022 8:14 AM EDT I called Mr. Rueda after receiving notification that he had overslept and would not be coming infor Surgery today with Dr. López. I have asked our RN's to place procedure orders to be for Interventional Radiology to help expeditegetting his Ablation completed - he is aware this will be with alternate Surgeon. documented in this encounter Plan of Treatment Upcoming Encounters Date Type Department Care Team (Late Contact Info) Description 05/15/2024 10:00 AM EDT [place] [address] Catrachito Mehta MD [facility] [place] [address] documented as of this encounter Visit Diagnoses Not on filedocumented in this encounter Care Teams Videographer Relationship Specialty Start Date End Date David Massey MD [address] [place] [address] PCP - General Emergency Medicine 03/31/21 documented as of this encounter
--- OUTSIDE RECORDS SUMMARY | 2024-04-27 14:52 | XMS_ITS | Encounter Summary ---
Author Organization [facility] [place] [address] Care Team Providers Care Urban Anthropologist Name Role Phone David Massey MD Primary Care Provider [phone] Encounter Details Date Type Department Care Team (Late Contact Info) Description 12/03/2022 1:20 PM EST Ancillary Procedure [place] [phone] Constantine Crenshaw MD [facility] [address] Social History Tobacco Use Types Packs/Day Years [...] 10:00 AM EDT [place] [phone] Catrachito Mehta MD [facility] [place] [address] documented as of this encounter Procedures Procedure Name Priority Date/Time Associated Diagnosis Comments FILM LIBRARY STORAGE ONLY MR HEAD Routine 12/03/2022 1:16 PM EST documented in this encounter Results * Film Library- Storage Only MR Head (12/03/2022 1:16 PM EST) Narrative [facility] - 12/03/2022 1:16 PM EST This exam is auto-finalizing. It's purpose is for storage only. Constantine Crenshaw MD IMG FILM LIBRARY O RDERABLES [place], [place] documented in this encounter Visit Diagnoses Not on filedocumented in this encounter Care Teams Urban Anthropologist Relationship Specialty Start Date End Date David Massey MD [address] [place] [address] PCP - General Emergency Medicine 03/31/21 documented as of this encounter
--- OUTSIDE RECORDS SUMMARY | 2024-04-27 14:52 | XMS_ITS | Encounter Summary ---
Author Organization [facility] Address [facility] [place] [address] Care Team Providers Care Rip Sawyer Name Role Phone David Massey MD Primary Care Provider [phone] Encounter Details Date Type Department Care Team (Late Contact Info) Description 08/28/2022 [place] [address] Felecia Carney Social History Tobacco Use Types Packs/Day Years [...] 10:00 AM EDT [place] [address] Catrachito Mehta MD [facility] [place] [address] documented as of this encounter Visit Diagnoses Not on filedocumented in this encounter Care Teams Rip Sawyer Relationship Specialty Start Date End Date David Massey MD [address] [place], [place] [id number] PCP - General Emergency Medicine 03/31/21 documented as of this encounter
--- OUTSIDE RECORDS SUMMARY | 2024-04-27 14:52 | XMS_ITS | Clinical Summary ---
Author Organization [facility] Address [facility] [place] [address] Care Team Providers Care Wagon Driller Name Role Phone David Massey MD Primary Care Provider Allergies No known active allergies Medications Medication Sig Dispensed Refills Start Date End Date Status lovastatin (MEVACOR) 20 mg tablet 04/24/2010 Active terazosin (HYTRIN) 2 mg capsule Take 2 mg by mouth nightly. Active MULTIVIT &MINERALS/FERROUS FUM (MULTI VITAMIN ORAL) Take 1 tablet by mouth 2 times daily. Active DILTiazem (DILACOR XR) 240 mg 24 hr capsule Take 1 capsule by mouth daily. Take the short acting Diltiazem four times daily until you can swallow pills. Once you can swallow pills, you can start retaking this long acting Diltiazem. 02/12/2014 Active CALCIUM CITRATE/VITAMIN D2 (CALCIUM CITRATE WITH D ORAL) Take 2 tablets by mouth 2 times daily. Active lisinopril (PRINIVIL;ZESTRIL) 5 mg Tablet take 1 tablet by mouth once daily 0 02/06/2017 Active metFORMIN (GLUCOPHAGE) 1,000 mg Tablet 0 01/18/2019 Active RESTASIS 0.05 % Dropperette instill 1 drop into both eyes twice a day as directed 0 12/29/2018 Active JARDIANCE 10 mg Tablet 0 03/20/2019 Active apixaban (Eliquis) 5 mg Tablet Take by mouth. 04/11/2021 Active OneTouch Ultra Test Strip USE 1 STRIP TO CHECK GLUCOSE FOUR TIMES DAILY DIRECTED 07/27/2021 Active OneTouch Ultra2 Meter Misc USE DIRECTED FOUR TIMES A DAY 08/24/2021 Active dapagliflozin (Farxiga) 10 mg Tablet Take by mouth. 11/11/2020 Active Lantus Solostar U-100 Insulin pen ADMINISTER 10 UNITS UNDER THE SKIN AT BEDTIME 08/20/2021 Active metoprolol succinate XL (Toprol-XL) 100 mg Tablet Sustained Release 24 hr Take by mouth. 01/10/2021 Active Rybelsus 7 mg Tablet 08/29/2021 Acti ve Active Problems Problem Noted Date Diagnosed Date Venous insufficiency of both lower extremities 0 01/10/2022 Venous stasis ulcer 01/10/2022 Preoperative Class II obesity, S/P gastric bypas s February 2014 12/01/2013 Decreased hearing, wears hearing aid right ear 0 11/08/2013 Hyperlipidemia 11/08/2013 Chronic anticoagulation 11/08/2013 History of renal stone ~1980s 11/08/2013 CARLOS A (obstructive sleep apnea) 07/28/2013 Type 2 diabetes mellitus 07/28/2013 GERD (gastroesophageal reflux disease) 3 Varicose veins 07/28/2013 Carpal tunnel syndrome 07/28/2013 Asbestosis(501) 07/28/2013 Pterygium 07/28/2013 Fatigue 07/28/2013 Depression 07/28/2013 Hip arthritis 07/10/2013 S/P knee replacement 07/10/2013 HTN (hypertension) 07/10/2013 Atrial fibrillation 07/10/2013 PVD (peripheral vascular disease) 07/10/2013 DM (diabetes mellitus) 07/10/2013 Resolved Problems Problem Noted Date Diagnosed Date Resolved Date Ventral hernia without obstr uction or gangrene 03/22/2016 05/04/2017 Abdominal pannus 02/07/2016 05/04/2017 Peripheral neuralgia 07/28/2013 014 Umbilical hernia 07/28/2013 11/08/2013 Immunizations Name Administration Dates Next Due Hepatitis A, Unspecified Formulation 03/18/2006 Hepatitis B Unspecified Formulation 04/17/2006,0 03/18/2006 Pneumococcal Polysaccharide (Pneumovax 23) 02/13 Rabies vaccine, intramuscular 04/17/2006, 006,03/18/2006 TD Adult 02/15/2006,10/07/1996 Yellow Fever Vaccine 03/27/2006 Family History Medical History Relation Comments Breast Cancer Sister Relation Status Comments Sister Social History Tobacco Use Types Packs/Day Years Used Date Smoking Tobacco: Never Smokeless Tobacco: Never Alcohol Use Standard Drinks/Week Comments No 0 (1 standard drink = 0.6 oz pur e alcohol) 4x year Sex and Gender Information Value Date Recorded Sex Assigned at Not on file Gender Identity Not on file Sexual Orientation Not on file Last Filed Vital Signs Vital Sign Reading Time Taken Comments Blood Pressure 116/64 03/09/2022 3:30 PM EDT Pulse 83 03/09/2022 3:30 PM EDT Temperature 37 ??C (98.6 ??F) 03/09/2022 2:47 PM EDT Respiratory Rate 16 03/09/2022 2:47 PM EDT Oxygen Saturation 96% 03/09/2022 3:30 PM EDT Inhaled Oxygen Concentration - - Weight 96.2 kg (212 lb) 03/09/2022 12:14 PM EDT Height 175.3 cm (5' 9) 03/09/2022 12:14 PM EDT Body Mass Index 31.31 03/09/2022 12:14 PM EDT Plan of Treatment Upcoming Encounters Date Type Department Care Team (Late st Contact Info) Description 05/15/2024 10:00 AM EDT [place] [address] Catrachito Mehta MD [facility] [place] [address] Health Maintenance Due Date Last Done Comments CT Colonography 1949 Colonoscopy 1949 Colorectal Cancer Screening 1949 FIT DNA 1949 FIT 1949 Sigmoidoscopy (10 year) with FIT yearly 1949 Sigmoidoscopy 1949 DM Opthalmology Exam 12/20/1959 DM Urine Microalbumin yearly 12/20/1959 Hepatitis C Screening 12/20/1967 Tdap adult 1968 Zoster vaccine (1 of 2) 12/20/1999 Advance Directive 2004 Pneumoccocal Vaccine: 65+ (2 of 2 - PCV) 02/13/2005 02/14/2004 Tetanus vaccine 02/16/2016 02/15/2006, 10/07/1996 DM Hemoglobin A1c 03/09/2016 12/08/2015, 11/03/2013 DM Creatinine yearly 04/22/2018 04/22/2017, 12/08/2015, 02/12/2014, Additional history exists Covid-19 Vaccine (2022-2 4 season) 2023 Influenza (Flu) vaccine (1 o f 1 - Influenza standard series) 06/07/2024 Medical Devices Implanted Type Area Pressure Sealer And Tester Device Identifier Shelf Expiration Date Model / Serial / Lot Mesh,Ventrio, St,Ovl,5.4x7i n ([id number]) - [id number] Implanted:Qty : 1 on 05/17/2016 by Stephanie Butcher MD at [facility] IMPLANTS Abdomen [employer] - [id number] 01/15/2018 [id number] / / [id number] Explanted Type Area Pressure Sealer And Tester Device Identifier Shelf Expiration Date Model / Serial / Lot Stent Ureteral [id number] Dbl Pgtl Soft Ptfe Tria ([id number]) - [id number] Implanted:Qty : 1 on 10/13/2021 by Romario Womack Jr., MD at [facility] Explanted:Qty : 1 on 03/09/2022 by Romario Womack Jr., MD IMPLANTS Left: Ureter MetaStat - Targeting[employer]antra [id number] 04/11/2024 [id number] / / [id number] Procedures Procedure Name Priority Date/Time Associated Diagnosis Comments COMPREHENSIVE METABOLIC PANEL (NON-FASTING) Routine 04/22/2017 11:18 AM EDT Status post bariatric surgery Intestinal malabsorption, unspecified type Essential hypertension Obstructive sleep apnea HEMOGLOBIN A1C Routine 12/08/2015 11:50 AM EST Status post bariatric surgery Intestinal malabsorption, unspecified type [K90.9] Symptomatic abdominal panniculus Obstructive sleep apnea Hyperlipidemia, unspecified hyperlipidemia type [E78.5] Vitamin D deficiency Diabetes mellitus type 2, uncomplicated from Last 3 Months or Most Recently Relevant to Health Maintenance Results * (ABNORMAL) Comprehensive metabolic panel (non-fasting) (04/22/2017 11:18 AM EDT) Glucose Lvl 123 65 - 199 mg/dL [facility] Comment:Diabetes: >=200 mg/d L plus symptoms BUN 23(H) 10 - 20 mg/dL [facility] Creatinine 1.05 0.80 - 1.50 mg/dL [facility] Comment: Please note that the pediatric reference intervals supplied above were not validated at [facility]. Results from pediatric patients should be interpreted in conjunction to the patient's age, height and muscle mass. Sodium 142 135 - 145 mmol/L [facility] Potassium 4.0 3.5 - 5.0 mmol/L [facility] Comment: Please note: ??Patients with WBC >100,000 may have falsely elevated Potassium levels. ??For accurate Potassium quantification in these patients send serum separator tube (gold top) for subsequent determinations. ??Contact the Clinical Chemistry Laboratory if there are any questions. Chloride 101 98 - 107 mmol/L [facility] CO2 25 22 - 31 mmol/L [facility] Anion Gap 16(H) 5 - 15 mmol/L [facility] Calcium 9.3 8.5 - 10.5 mg/dL [facility] Total Protein 7.4 6.1 - 8.0 gm/dL [facility] Albumin 4.3 3.2 - 5.2 gm/dL [facility] AST 13 0 - 39 unit/L [facility] ALT 20 0 - 55 unit/L [facility] Alk Phos 58 40 - 120 unit/L [facility] Total Bilirubin 0.5 0.2 - 1.3 mg/dL [facility] Estimated GFR >60 >=60 [facility] Comment: This estimated GFR (eGFR) value was calculated using the MDRD equation which has been validated on patients between the ages of 18 and 70. The MDRD should not be used to assess kidney function in patients < 18 years of age or in patients with extremes of body mass, or in patients with acute kidney failure. This value should be multiplied by 1.2 for patients. For further information please copy and paste the following links into your internet browser. [email or web address] Blood specimen (specimen) 04/22/2017 11:18 AM EDT 04/22/2017 11:25 AM EDT Narrative Resulting Agency Comment Spec In Lab Narda Allen EXPELLER OPERATOR CHEMISTRY ORDERAB LES [facility] [place] [address] * (ABNORMAL) Hemoglobin A1c (12/08/2015 11:50 AM EST) Hemoglobin A1C 6.9(H) 4.3 - 5.6 % [facility] Comment: Reference Range: 4.3 - 5.6% 5.7 [...] Mellitus, Diabetes Care 2013; 36: Suppl. 1, S67-42 Est Avg Gluc 151 mg/dL [facility] Comment: eAG equivalents for HbA1c percentages: HbA1c(%) ?eAG(mg/dL) 6.0 ?126 6.5 ?140 7.0 ?154 7.5 ?169 8.0 ?183 8.5 ?197 9.0 ?212 9.5 ?226 10.0 ? 240 Limitations: The eAG calculation has not been validated on women, individuals below 18 years old and above 70 years old, and individuals with hemoglobinopathies. Additional resources are available on the ADA website: http://InspireMD.com/[email or web address] Keyon MACHADO, Buddy J, Maynor R, et al. ??Translating the A1C assay into estimated average glucose values. ??Diabetes Care 2008:31(8):4759-5180. Blood specimen (specimen) 12/08/2015 11:50 AM EST 12/08/2015 11:58 AM EST Narrative Resulting Agency Comment Spec In Lab Wally Pfeiffer MD CHEMISTRY ORDERABLE S [facility] [place] [address] from Last 3 Months or Most Recently Relevant to Health Maintenance Advance Directives * Full Code (Latest Code Status on File) Date Activated Date Inactivated Comments 05/17/2016 11:02 AM 05/20/2016 12:06 PM Question Answer Comments Does patient have capacity to make decision: Yes * Full Code Date Activated Date Inactivated Comments 02/08/2014 3:23 PM 02/12/2014 2:50 PM Question Answer Comments Order Status: Initial Order Does patient have decision m aking capacity? Yes, Order is based on Patients wishes. * Full Code Date Activated Date Inactivated Comments 02/08/2014 9:18 AM 02/08/2014 3:23 PM Question Answer Comments Does patient have decision m aking capacity? Yes, order is based on Patient wishes. Care Teams Wagon Driller Relationship Specialty Start Date End Date David Massey MD [address] [place] [id number] PCP - General Emergency Medicine 03/31/21
--- OUTSIDE RECORDS SUMMARY | 2024-04-27 14:52 | XMS_ITS | Encounter Summary ---
[place] [address] Care Team Providers Care Extrusion Line Operator Name Role Phone David Massey MD Primary Care Provider [phone] Reason for Referral * Diagnostic Test (Routine) - Closed Specialty Diagnoses / Procedures Referred By Sonal dawson Referred To Contact Cardiology Diagnoses Cerebrovascular accident (CVA), unspecified mechanism Chronic atrial fibrillation Procedures Mobile Kamari Elam MD [address] [place] [address] [address] [facility] [place] [address] Referral ID Status Reason Start Date Expiration Date V isits Requested Visits Authorized [id number] Closed Specialty Service Requested 12/04/2022 12/04/2023 1 1 Reason for Visit * Diagnostic Test (Routine) - Closed Specialty Diagnoses / Procedures Referred By Sonal dawson Referred To Contact Cardiology Diagnoses Cerebrovascular accident (CVA), unspecified mechanism Chronic atrial fibrillation Procedures Mobile Kamari Elam MD [address] [place] [address] [address] [facility] [place] [address] Referral ID Status Reason Start Date Expiration Date V isits Requested Visits Authorized [id number] Closed Specialty Service Requested 12/04/2022 12/04/2023 1 1 Encounter Details Date Type Department Care Team (Latest Contact Info) Description 12/04/2022 2:30 PM EST - 12/04/2022 11:59 PM EST Hospital Encounter [place] [address] Kamari Fontana MD [address] [place] [address] Cerebrovascular accident (CVA), unspecified mechanism; Chronic atrial fibrillation Discharge Disposition: Home Social History Tobacco Use Types Packs/Day Years Used Date Smoking Tobacco: Never Smokeless Tobacco: Never Alcohol Use Standard Drinks/Week Comments No 0 (1 standard drink = 0.6 oz pur e alcohol) 4x year Sex and Gender Information Value Date Recorded Sex Assigned at Not on file Gender Identity Not on file Sexual Orientation Not on file documented as of this encounter Medications at Time of Discharge Medication Sig Dispensed Refills Start Date End Date apixaban (Eliquis) 5 mg Tablet Take by mouth. 04/11/2021 OneTouch Ultra Test Strip USE 1 STRIP TO CHECK GLUCOSE FOUR TIMES DAILY DIRECTED 07/27/2021 OneTouch Ultra2 Meter Misc USE DIRECTED FOUR TIMES A DAY 08/24/2021 dapagliflozin (Farxiga) 10 mg Tablet Take by mouth. 11/11/2020 Lantus Solostar U-100 Insulin pen ADMINISTER 10 UNITS UNDER THE SKIN AT BEDTIME 08/20/2021 metoprolol succinate XL (Toprol-XL) 100 mg Tablet Sustained Release 24 hr Take by mouth. 01/10/2021 Rybelsus 7 mg Tablet 08/29/2021 metFORMIN (GLUCOPHAGE) 1,000 mg Tablet 0 01/18/2019 RESTASIS 0.05 % Dropperette instill 1 drop into both eyes twice a day as directed 0 12/29/2018 JARDIANCE 10 mg Tablet 0 03/20/2019 lisinopril (PRINIVIL;ZESTRIL) 5 mg Tablet take 1 tablet by mouth once daily 0 02/06/2017 CALCIUM CITRATE/VITAMIN D2 (CALCIUM CITRATE WITH D ORAL) Take 2 tablets by mouth 2 times daily. DILTiazem (DILACOR XR) 240 mg 24 hr capsule Take 1 capsule by mouth daily. Take the short acting Diltiazem four times daily until you can swallow pills. Once you can swallow pills, you can start retaking this long acting Diltiazem. 02/12/2014 MULTIVIT &MINERALS/FERROUS FUM (MULTI VITAMIN ORAL) Take 1 tablet by mouth 2 times daily. terazosin (HYTRIN) 2 mg capsule Take 2 mg by mouth nightly. lovastatin (MEVACOR) 20 mg tablet 04/24/2010 documented as of this encounter Plan of Treatment Upcoming Encounters Date Type Department Care Team (Late st Contact Info) Description 05/15/2024 10:00 AM EDT [place] [phone] Catrachito Mehta MD [facility] [place] [address] documented as of this encounter Procedures Procedure Name Priority Date/Time Associated Diagnosis Comments ECHO COMPLETE Routine 12/04/2022 4:09 PM EST Cerebrovascular accident (CVA), unspecified mechanism Chronic atrial fibrillation documented in this encounter Results * ECHO COMPLETE (12/04/2022 4:09 PM EST) EF 68 HEARTLAB SYSTEM Anatomical Region Laterality Modality Other 12/04/2022 2:41 PM EST Narrative 12/04/2022 4:19 PM EST ? Echocardiogram Report Name: EUGENE PURVIS ? Study Date: 12/04/2022 02:41 PMBP: 133/73 mmHg ?Patient Location: 4A 0000 : 1950 ?Height: 170 cm ? Account: [id number] Age: 71 yrs ?Weight: 96 kg Gender: Male ? BSA: 2.1 m2 Ordering Physician: KAMARI FONTANA Referring Physician: KAMARI FONTANA Performed By: Stormy Santos RDCS Reason For Study: Stroke Exam Location: [facility]. Interpretation Summary Technically difficult study. The left ventricular size and function are normal with LVEF of 68% by Hargrove's biplane and no wall motion abnormalities. The right ventricle is moderately dilated with mildly reduced function. PASP 36 mm Hg (assuming RA pressure 8 mm Hg). The atria are severley dilated. There is moderate tricuspid regurgitation. Please see the body of report for additional details. Procedure Complete-[id number]. Image enhancement Optison was used for left ventricular opacification. Suboptimal quality. Left Ventricle There is no ventricular septal defect. Left ventricle is of normal size. Wall thickness is mildly increased. Left ventricular systolic function is normal. The left ventricular ejection fraction is 68% by Hargrove's biplane. There are no segmental wall motion abnormalities. Right Ventricle Right ventricle is moderately dilated. The right ventricular apex is hypokinetic. Right ventricular systolic function is mildly decreased. Left Atrium The left atrium is severely dilated. There is no evidence for a patent foramen ovale. Right Atrium The right atrium is severely dilated. Aortic Valve The aortic valve is probably trileaflet. There is calcification of the aortic annulus. There is no aortic stenosis. There is no aortic regurgitation. Mitral Valve There is mitral annular calcification. There is mild mitral regurgitation. Tricuspid Valve There is dilatation of the tricuspid annulus. There is moderate tricuspid regurgitation. Pulmonic Valve The pulmonic valve is not well visualized. Great Arteries The aortic root is of normal size. No abnormalities are identified. Ascending aorta is normal in size. Venous Inferior vena cava collapse greater than 50% with respiration. Inferior vena cava is dilated. Pericardium/Pleural The pericardium appears normal. There is no pericardial effusion. Hemodynamics The peak right ventricular systolic pressure is 36 mmHg. The estimated right atrial pressure is 8mmHg. Left ventricular filling pressure is increased. Ejection Fraction ?2D Measurements ? Volumes EF(MOD-bp): 68.2 % ?IVSd: 1.3 cm ? LAV(MOD- bp) Indexed: ?LVIDd: 4.7 cm ?LVIDs: 3.3 cm ?85.7 ml/m2 ?LVPWd: 1.3 cm ?EDV (MOD-bp) Index: 46.5 ? ESV (MOD-bp) Index: 14.8 ?LV mass(C)d: 233.1 grams ? SV(LVOT): 58.8 ml ?LV mass(C)dI: 112.6 grams/m2 ?? LV Stroke Volume: 59.0 ml ?Ao root diam: 3.4 cm ? SI(LVOT): 28.4 ml/m2 ?Ao root diam index: 1.6 ?asc Aorta Diam: 3.2 cm ?LVOT diam: 2.0 cm Doppler TR max cezar: 264.8 cm/sec RVSP(TR): 36.1 mmHg LV V1 VTI: 18.7 cm LVOT max Velocity: 106.2 cm/sec MV E max cezar: 110.0 cm/sec MV A max cezar: 38.9 cm/sec MV E/A: 2.8 MV dec time: 0.11 sec I ?WMSI = 1.00 ? % Normal = 100 ?Segments ??Size X - Cannot ?2 - ?4 - ?1-2 ? small Interpret ?1 - Normal ?? Hypokinetic 3 - Akinetic Dyskinetic ?? 3-5 ? moderate 5 - ? 6-14 ?large Aneurysmal ?15-16 ?? diffuse Procedure Note Hari Cole MD - 12/04/2022 Echocardiogram Report Name: EUGENE PURVIS Study Date: 12/04/2022 02:41 PMBP:133/73 mmHg Patient Location: [address] [place] [address] : 1950 Height: 170 cmAccount: [id number] Age: 71 yrs Weight: 96 kg Gender: Male BSA: 2.1 m2 Ordering Physician: KAMARI FONTANA Referring Physician: KAMARI FONTANA Performed By: Stormy Santos RDCS Reason For Study: Stroke Exam Location: [facility]. Interpretation Summary Technically difficult study. The left ventricular size and function are normal with LVEF of 68% bySimpson's biplane and no wall motion abnormalities. The right ventricle is moderately dilated with mildly reduced function.PASP 36 mm Hg (assuming RA pressure 8 mm Hg). The atria are severley dilated. There is moderate tricuspid regurgitation. Please see the body of report for additional details. Procedure Complete-[id number]. Image enhancement Optison was used for left ventricular opacification. Suboptimal quality. Left Ventricle There is no ventricular septal defect. Left ventricle is of normal size.Wall thickness is mildly increased. Left ventricular systolic function isnormal. The left ventricular ejection fraction is 68% by Hargrove's biplane. There areno segmental wall motion abnormalities. Right Ventricle Right ventricle is moderately dilated. The right ventricular apex ishypokinetic. Right ventricular systolic function is mildly decreased. Left Atrium The left atrium is severely dilated. There is no evidence for a patentforamen ovale. Right Atrium The right atrium is severely dilated. Aortic Valve The aortic valve is probably trileaflet. There is calcification of theaortic annulus. There is no aortic stenosis. There is no aortic regurgitation. Mitral Valve There is mitral annular calcification. There is mild mitralregurgitation. Tricuspid Valve There is dilatation of the tricuspid annulus. There is moderatetricuspid regurgitation. Pulmonic Valve The pulmonic valve is not well visualized. Great Arteries The aortic root is of normal size. No abnormalities are identified.Ascending aorta is normal in size. Venous Inferior vena cava collapse greater than 50% with respiration. Inferiorvena cava is dilated. Pericardium/Pleural The pericardium appears normal. There is no pericardial effusion. Hemodynamics The peak right ventricular systolic pressure is 36 mmHg. The estimatedright atrial pressure is 8mmHg. Left ventricular filling pressure isincreased. Ejection Fraction 2D Measurements Volumes EF(MOD-bp): 68.2 % IVSd: 1.3 cm LAV(MOD-bp)Indexed: LVIDd: 4.7 cm LVIDs: 3.3 cm 85.7 ml/m2 LVPWd: 1.3 cm EDV (MOD-bp)Index: 46.5 ESV (MOD-bp)Index: 14.8 LV mass(C)d: 233.1 grams SV(LVOT): 58.8ml LV mass(C)dI: 112.6 grams/m2 LV Stroke Volume:59.0 ml Ao root diam: 3.4 cm SI(LVOT): 28.4ml/m2 Ao root diam index: 1.6 asc Aorta Diam: 3.2 cm LVOT diam: 2.0 cm Doppler TR max cezar: 264.8 cm/sec RVSP(TR): 36.1 mmHg LV V1 VTI: 18.7 cm LVOT max Velocity: 106.2 cm/sec MV E max cezar: 110.0 cm/sec MV A max cezar: 38.9 cm/sec MV E/A: 2.8 MV dec time: 0.11 sec I WMSI = 1.00 % Normal = 100 SegmentsSize X - Cannot 2 - 4 - 1-2small Interpret 1 - Normal Hypokinetic 3 - Akinetic Dyskinetic 3-5moderate 5 - 6-14large Aneurysmal 15-16diffuse Kamari Fontana MD ECHO ORDERABLES documented in this encounter Visit Diagnoses Diagnosis Cerebrovascular accident (CVA), unspecified mechanism Chronic atrial fibrillation Atrial fibrillation documented in this encounter Care Teams Extrusion Line Operator Relationship Specialty Start Date End Date David Massey MD [address] [place] [address] PCP - General Emergency Medicine 03/31/21 documented as of this encounter
--- OUTSIDE RECORDS SUMMARY | 2024-04-27 14:53 | XMS_ITS | Encounter Summary ---
Author Organization [facility] [place] [address] Care Team Providers Care Marine Architect Name Role Phone Manolo Castro MD Primary Care Provider [phone] Reason for Visit * Reason Comments Follow Up Surgery s/p panni 05/17/2016 Encounter Details Date Type Department Care Team (Late st Contact Info) Description 06/27/2016 9:00 AM EDT Office Visit [place] [address] Karlene Valencia MD [facility] [place] [address] Abdominal pannus Social History Tobacco Use Types Packs/Day Years Used Date Smoking Tobacco: Never Smokeless Tobacco: Never Alcohol Use Standard Drinks/Week Comments No 0 (1 standard drink = 0.6 oz pur e alcohol) 4x year Sex and Gender Information Value Date Recorded Sex Assigned at Not on file Gender Identity Not on file Sexual Orientation Not on file documented as of this encounter Patient Instructions * Patient Instructions* Karlene Valencia MD - 06/27/2016 9:00 AM EDT Plan: 1. Follow up: 10 days with nurse for drain removal. 2. Maintain support garments documented in this encounter Progress Notes * Karlene Valencia MD - 06/27/2016 9:00 AM EDT Plastic Surgery Post Op Note Reason for visit: F/U status post procedure Date of surgery: 05/17/16 Procedure(s): Panniculectomy Complications: None reported Pain: 2/10 HPI: Pt reports drain output on the left has been 46cc two days ago, 72cc yesterday. He has also noticed a malodor. He has been wearing the abdominal binder. He reports he's doing great. Examination: T:98.2 Patient is alert, conversant, comfortable, ambulating Incision: CDI, healing well. Left drain in place. No signs of infection. Drain quality is serosanguinous. No cellulitis or wound dehiscence Umbilical remnant is viable Impression: Eugene Ruead is a 65 y.o. male who was seen today for follow-up after the above procedure. Please see the operative note for details. Healing well to date. We discussed changing the drain sponge more frequently to address the malodor. Plan: 1. Follow up: 10 days with nurse for drain removal. 2. Maintain support garments. I, Genie Frazier, am acting as scribe for Dr. Valencia. All work documented was performed by Dr. Valencia. ???I performed the above scribed service and agree with the accuracy of the note?? KARLENE VALENCIA MD documented in this encounter Plan of Treatment Upcoming Encounters Date Type Department Care Team (Late st Contact Info) Description 05/15/2024 10:00 AM EDT Office [place] [address] Catrachito Mehta MD [facility] [place] [address] documented as of this encounter Visit Diagnoses Diagnosis Abdominal pannus Localized adiposity documented in this encounter Care Teams Marine Architect Relationship Specialty Start Date End Date Manolo Castro MD [address] [place] [address] PCP - General 05/14/12 04/21/17 documented as of this encounter
--- OUTSIDE RECORDS SUMMARY | 2024-04-27 14:53 | XMS_ITS | Encounter Summary ---
[place] [address] Care Team Providers Care Driver Material Handler Name Role Phone Manolo Castro MD Primary Care Provider [phone] Reason for Visit * Reason Comments Follow Up Surgery 05/17/16 drain remova l Encounter Details Date Type Department Care Team (Latest Contact Info) Description 07/09/2016 11:00 AM EDT Clinical [place] [address] Surgery follow-up Social History Tobacco Use Types Packs/Day Years [...] this encounter Patient Instructions * Patient Instructions* Jeana Santiago RN - 07/09/2016 11:00 AM EDT Signs of Infection : A temperature over 100.4 F or 38 C. Redness at the incision line that is beginning to spread away from the incision after the first 48 hours. Yellow pus-like or foul smelling drainage larger than a dime size from the incision or drain sites. Increased pain / discomfort that is not relieved by your pain medicine. For any of these symptoms please call our nurse's line at [phone] M - F 8 - 5 documented in this encounter Progress Notes * Jeana Santiago RN - 07/09/2016 11:00 AM EDT Reason for Visit: Postoperative Evaluation s/p Panniculectomy 05/17/16 pt here for drain removal Subjective: Drain has been less than 20cc for the past 3 days Objective: Drain removed today,it has met criteria for removal Complications: none Assessment: No signs of redness, or excessive swelling Plan: We reviewed post op instructions, including activity limitations, increase protein in the diet, signs of infection and correct phone numbers to call us for concerns. documented in this encounter Plan of Treatment Upcoming Encounters Date Type Department Care Team (Late st Contact Info) Description 05/15/2024 10:00 AM EDT [place] [address] Catrachito Mehta MD [facility] [place] [address] documented as of this encounter Visit Diagnoses Diagnosis Surgery follow-up Follow-up examination, following unspecified surgery documented in this encounter Care Teams Driver Material Handler Relationship Specialty Start Date End Date Manolo Castro MD [address] [place] [address] PCP - General 05/14/12 04/21/17 documented as of this encounter
--- OUTSIDE RECORDS SUMMARY | 2024-04-27 14:53 | XMS_ITS | Encounter Summary ---
Author Organization [facility] [place] [address] Care Team Providers Care Civil Engineering Manager Name Role Phone Manolo Castro MD Primary Care Provider [phone] Reason for Visit * Reason Comments Follow Up Surgery panni and hernia rep air 05/17 Encounter Details Date Type Department Care Team (Late st Contact Info) Description 05/29/2016 11:20 AM EDT Office [place] [address] Terri Mak APRN [facility] [place] [address] Surgery follow-up Social History Tobacco Use Types [...] this encounter Patient Instructions * Patient Instructions* Terri Mak APRN - 05/29/2016 11:20 AM EDT 1. Follow up: [address] Membreno 2. Maintain support garments 3. Limit activities for 6 weeks post-op: no lifting, pushing, pulling more than 5 pounds. No core-engaging activities. 4. Take antibiotics until 24 hours after last drain removed. 5. Last drain to be removed by [facility] when output is less than 30 ml per 24 hours for two days in a row. documented in this encounter Progress Notes * Terri Mak APRN - 05/29/2016 11:20 AM EDT Plastic Surgery Post Op Note Reason for visit: F/U status post procedure Date of surgery: 05/17/16 Procedure(s): Panniculectomy Complications: None reported Pain: 0/10 HPI: Pt reports he has been well. Right drain has been putting out 15cc per day. Left drain does not meet criteria. He finished his antibiotics yesterday. Examination: Patient is alert, conversant, comfortable, ambulating Umbilicus intact. Incision: CDI, healing well. Drains in place with dark output. Right drain removed. No collection, no erythema, no evidence of cellulitis. Impression: Eugene Rueda is a 65 y.o. male who was seen today for follow-up after the above procedure. Please see the operative note for details. He is healing well to date. Plan: 1. Follow up: [address] eMmbreno 2. Maintain support garments 3. Limit activities for 6 weeks post-op: no lifting, pushing, pulling more than 5 pounds. No core-engaging activities. 4. Take antibiotics until 24 hours after last drain removed. 5. Last drain to be removed by [facility] when output is less than 30 ml per 24 hours for two days in a row. Genie Seymour, am acting as scribe for Terri Mak APRN. All work documented was performed by Terri Mak APRN. ???I performed the above scribed service and agree with the accuracy of the note?? TERRI MAK APRN documented in this encounter Plan of Treatment Upcoming Encounters Date Type Department Care Team (Late st Contact Info) Description 05/15/2024 10:00 AM EDT Office [place] [phone] Catrachito Mehta MD [facility] [place] [address] documented as of this encounter Visit Diagnoses Diagnosis Surgery follow-up Follow-up examination, following unspecified surgery documented in this encounter Care Teams Civil Engineering Manager Relationship Specialty Start Date End Date Manolo Castro MD [address] [place] [address] PCP - General 05/14/12 04/21/17 documented as of this encounter
--- OUTSIDE RECORDS SUMMARY | 2024-04-27 14:53 | XMS_ITS | Encounter Summary ---
Author Organization [facility] Address [facility] [place] [address] Care Team Providers Care Ep Tech Name Role Phone Dominic Restrepo MD Primary Care Provider [phone] Encounter Details Date Type Department Care Team (Late st Contact Info) Description 03/25/2019 2:38 PM EDT - 03/25/2019 11:59 PM EDT Hospital Encounter XRay at [address] [place] [address] Amish Han MD [facility] [place] [address] Right knee pain, unspecified chronicity Discharge Disposition: Home Social History Tobacco Use [...] Sig Dispensed Refills Start Date End Date metFORMIN (GLUCOPHAGE) 1,000 mg Tablet 0 01/18/2019 [...] nightly. lovastatin (MEVACOR) 20 mg tablet 04/24/2010 warfarin (COUMADIN) 5 mg tablet Take 1 tablet by mouth daily. Start February 19, 2014 02/12/2014 10/13/2021 documented as of this encounter Plan of Treatment Upcoming Encounters Date Type Department Care Team (Late st Contact Info) Description 05/15/2024 10:00 AM EDT [place] [address] Catrachito Mehta MD [facility] [place] [address] documented as of this encounter Procedures Procedure Name Priority Date/Time Associated Diagnosis Comments XR KNEE STANDING ALIGNMENT AP LAT [place] SKY[place] RIGHT Routine 03/25/2019 3:14 PM EDT Right knee pain, unspecified chronicity documented in this encounter Results * XR Knee Standing Alignment AP Lat [place] Right (03/25/2019 3:14 PM EDT) Anatomical Region Laterality Modality Right Digital Radiogra phy Impressions 03/25/2019 4:24 PM EDT No complication or change involving the knee prostheses. Thank you for letting us participate in the care of this patient. For questions regarding this report, please contact the number below. ? Electronically signed by: MARY JO [facility] ([phone]), at 03/25/2019 4:24 PM Narrative 03/25/2019 4:24 PM EDT EXAMINATION: XR KNEE STANDING ALIGNMENT AP LAT [place] SKYLINE RIGHT CLINICAL HISTORY: RIGHT KNEE PAIN TECHNIQUE: Separate images of the pelvis, knees and feet were acquired in the AP projection with the patient standing. These images were stitched together to form a composite image of the pelvis and legs allowing for evaluation of lower extremity alignment in the weight bearing position. Four additional views were obtained. 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 The prostheses well-positioned without periprosthetic lucency or fracture. There is no change in appearance since the prior study. Standing alignment There is mild medial deviation of the weightbearing axes of both legs. Osteoarthritis of the left hip is evident. Procedure Note Rafael Gaitan MD - 03/25/2019 EXAMINATION: XR KNEE STANDING ALIGNMENT AP LAT [place] SKYLINE RIGHT CLINICAL HISTORY: RIGHT KNEE PAIN TECHNIQUE: Separate images of the pelvis, knees and feet were acquired inthe AP projection with the patient standing. These images were stitched togetherto form a composite image of the pelvis and legs allowing for evaluation oflower extremity alignment in the weight bearing position. Four additional viewswere obtained. 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 The prostheseswell-positioned without periprosthetic lucency or fracture. There is no change inappearance since the prior study. Standing alignment There is mild medial deviation of the weightbearing axes of both legs. Osteoarthritis of the left hip is evident. IMPRESSION No complication or change involving the knee prostheses. Thank you for letting us participate in the care of this patient. Forquestions regarding this report, please contact the number below. Electronically signed by: MARY JO [facility]([phone]), at 03/25/2019 4:24 PM Amish Han MD IMG DX ORDERABLES documented in this encounter Visit Diagnoses Diagnosis Right knee pain, unspecified chronicity documented in this encounter Care Teams Ep Tech Relationship Specialty Start Date End Date Dominic Restrepo MD [address] [facility] [place] [address] PCP - General Family Medicine 04/22/17 03/30/21 documented as of this encounter
--- OUTSIDE RECORDS SUMMARY | 2024-04-27 14:53 | XMS_ITS | Encounter Summary ---
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 The PCP office stated that they would be willing to change it for the patient on a weekly basis asit's much closer to patient than coming here. Powdered Sugar Pulverizer Operator stated that would be fine and our artillery officer would reach out to him to schedule surery once a date was available. documented in this encounter Plan of Treatment Upcoming Encounters Date Type Department Care Team (Late st Contact Info) Description 05/15/2024 10:00 AM EDT Office [place] [address] Catrachito Mehta MD [facility] [place] [address] documented as of this encounter Visit Diagnoses Not on filedocumented in this encounter Care Teams Safety Patrol Officer Relationship Specialty Start Date End Date David Massey MD [address] [place] [address] PCP - General Emergency Medicine 03/31/21 documented as of this encounter
--- OUTSIDE RECORDS SUMMARY | 2024-04-27 14:53 | XMS_ITS | Encounter Summary ---
Author Organization Formerly [facility] Address [facility] [place] [address] Care Team Providers Care Managed Care Specialist Name Role Phone David Massey MD Primary Care Provider [phone] Reason for Visit * Auth/Cert Specialty Diagnoses / Procedures Referred By Sonal dawson Referred To Contact Diagnoses Calculus of ureter stone Procedures PRO CYSTO/URETEROSCOPY W/LITHOTRIPSY INC INDWELLING STENT INSERTION PRO CYSTOSCOPY, REMV CALCULUS, SIMPLE CYSTOURETEROSCOPY,DIAGNOSTIC,W/ LITHOTRIPSY INC. INSERTION OF INDWELLING URETERAL STENT (WRVU 8) CYSTO, REMOVAL OF STENT, FOREIGN BODY OR CALCULUS, SIMPLE (WRVU 2.81) MODIFIER HOLMIUM LASER Referral ID Status Reason Start Date Expiration Date Visits Re quested Visits Authorized [id number] 1 1 Encounter Details Date Type Department Care Team ([facility] Contact Info) Description 10/13/2021 11:10 AM EST - 10/13/2021 1:00 PM EST Surgery [place] [address] Romario Womack Jr., MD [facility] [place] [address] CYSTO, STENT PLACEMENT (WRVU 2.82) Social History Tobacco Use Types Packs/Day Years Used Date Smoking Tobacco: Never Smokeless Tobacco: Never Alcohol Use Standard Drinks/Week Comments No 0 (1 standard drink = 0.6 oz pur e alcohol) 4x year Sex and Gender Information Value Date Recorded Sex Assigned at Not on file Gender Identity Not on file Sexual Orientation Not on file documented as of this encounter Last Filed Vital Signs Vital Sign Reading Time Taken Comments Blood Pressure 134/88 10/13/2021 12:57 PM EST Pulse 106 10/13/2021 12:57 PM EST Temperature 36.9 ??C (98.4 ??F) 10/13/2021 12:[address] Respiratory Rate 17 10/13/2021 12:57 PM EST Oxygen Saturation 98% 10/13/2021 12:57 PM EST Inhaled Oxygen Concentration - - Weight 97.5 kg (215 lb) 10/13/2021 11:15 AM EST Height 177.2 cm (5' 9.75) 10/13/2021 11:[address] Body Mass Index 31.07 10/13/2021 11:15 AM EST documented in this encounter Discharge Instructions * Discharge Instructions* Jose Carter RN - 10/13/2021 11:21 AM EST General Anesthesia Discharge Instructions Go home and rest. You may be sleepy for several hours. Take it easy as sudden position changes may cause nausea and/or dizziness. Use caution on stairs. Do not smoke if you are alone. Follow a light to regular diet as tolerated today. If nausea occurs, start with clear liquids, and progress slowly to a regular diet. Do not drive, operate machinery, drink alcoholic beverages or make any legal decisions after havinggeneral anesthesia. The medications given change your reaction time and alter your judgement. IV site -- slight redness is normal, you can use warm compresses. If tenderness and redness increases or foul drainage occurs, please contact your M.D. Patients who have had endotracheal tubes/LMA (tubes used by the anesthesia staff to ensure a safe airway during your operation) may have a sore throat. This is normal and cold liquids or soothing lozenges will help ease this discomfort. Narcotic pain medications can cause constipation, please ask the surgeons office what they recommend for prevention of this. Some non-pharmaceutical means of constipation prevention include increasing intake of fluids, eating more fruits and vegetables as well as fruit juices. If you are uncomfortable and/or unable to urinate within 8 hours of discharge and it is before 5 pm, call your physician. If it is after 5pm go to the closest emergency room or call the hospital black top spreader machine operator at [phone] and ask for physician integration software engineer covering for your physician. Questions or problems after 5pm or on a weekend: Call the [facility] black top spreader machine operator at and ask for the physician integration software engineer covering for your doctor. At 11:30 am you received 1000 mg of acetaminophen - Your next dose should not be taken before 8 hours have passed. Next dose not before - 7:30 pm You should not take more than a total of 3000 mg of acetaminophen in a 24 hour period. * Patient Instructions* Jose C Skaggs - 10/13/2021 1:05 PM EST Call your doctor for: ??? fevers greater than 101 ??? severe nausea or vomiting ??? increasing pain not controlled by pain medications The number for questions is [phone] before 5 PM weekdays and [phone] after 5 PM and weekends. Activity level: Increased activity may lead to more stent discomfort and more blood in your urine. Your activity level will be determined by your comfort level. Diet: You may resume your regular diet as tolerated. Driving: No driving while still taking opioid pain medications (wait at least 6- 8 hours since last dose). No driving if you are still sore from surgery as it may limit your ability to react quickly if necessary. Shower/Bath: No restrictions. Medications: Please take the antibiotic and antifungal medications as prescribed Stent Discomfort: Most patients experience some degree of discomfort related to their ureteral stent. Symptoms include flank pain (increased during urination), frequency and urgency of urination, burning or pain in the bladder or urethral with urination, pelvic discomfort, and blood in the urine. Your symptoms may be exacerbated by activity. To manage your stent symptoms, try the following: - drink plenty of fluid (~2 liters per day or enough to make urine clear or pale yellow) - take ibuprofen (Motrin, Advil, or generic), up to 600-800mg every 8 hours - take acetaminophen (Tylenol), up to 650mg every 4 hours (regular strength) or 1000mg every 6 hours (extra strength) Follow up Appointments: You will be scheduled for future removal of your kidney stone in 2-3 weeks time. Please call [phone] if you do not hear from the Urologic clinic in the next couple of days about when your procedure will be scheduled. It is important to remember that your ureteral stent cannot stay in place permanently. If it remains in place too long it may become encrusted with stone and require additional surgery to remove it. Please call our office if you do not receive your appointment or if you need to reschedul documented in this encounter Medications at Time of Discharge [...] nightly. lovastatin (MEVACOR) 20 mg tablet 04/24/2010 cephALEXin (Keflex) 500 mg Capsule Take 1 capsule by mouth 3 times daily for 10 days. 30 capsule 10/13/2021 10/23/2021 fluconazole (Diflucan) 100 mg Tablet Take 1 tablet by mouth 2 times daily for 7 days. 14 tablet 10/13/2021 10/20/2021 documented as of this encounter H&P Notes * Jong Skaggswillie D - 10/13/2021 11:58 AM EST Urology H&P ID: Eugene Purvis is a 70 y.o. male with a history of LEFT urolithiasis who is here for LEFT stent exchange. Please see clinic note from 09/12/[address] Mehta for full detail. Patient has equivocal UA from today. Due to concern for active UTI we have discussed LEFT stent exchange with the patient. He will need to return for definitive stone treatment after appropriate treatment of UTI. Today no recent fever, chills, nausea, vomit, chest pain, SOB, dysuria Urine culture: pending UA Today Results for EUGENE PURVIS ( ) as of 10/13/2021 12:02 Ref. Range 10/13/2021 11:04 Color UA Latest Ref Range: Yellow Yellow Appearance UA Latest Ref Range: Clear Turbid (A) Spec [place] UA Latest Ref Range: 1.005 - 1.030 1.013 pH UA Latest Ref Range: 5.0 - 8.0 5.0 Protein UA Latest Ref Range: Negative mg/dL 30 (A) Glucose UA Latest Ref Range: Negative mg/dL 100 (A) Ketones UA Latest Ref Range: Negative mg/dL Negative Bilirubin UA Latest Ref Range: Negative mg/dL Negative Urobilinogen UA Latest Ref Range: Normal mg/dL Normal Blood UA Latest Ref Range: Negative mg/dL Small (A) Leukocytes UA Latest Ref Range: Negative mcL Large (A) Nitrite UA Latest Ref Range: Negative Negative WBC UA Latest Ref Range: 0 - 3 /HPF >100 (H) RBC UA Latest Ref Range: 0 - 3 /HPF 15 (H) Hyaline Cast UA Latest Ref Range: 0 - 2 /LPF 2 Bacteria UA Latest Ref Range: None /HPF Rare (A) Squam Epith UA Latest Ref Range: <=4 /HPF 3 Yeast [place] UA Latest Ref Range: None /HPF Few (A) Culture Reflexed Unknown Yes Anticoagulation: Yes Past Medical History: Diagnosis Date ??? Blood disorder ??? Circulatory disease ??? Diabetes Past Surgical History: Procedure Laterality Date ??? CHOLECYSTECTOMY ??? PRO EXCISE EXCESS SKIN TISSUE, ABDOMEN N/A 05/17/2016 ABDOMINOPLASTY performed by Adis Membreno MD at [facility] OR ??? PRO LAP GASTRIC BYPASS/KEYSHA-EN-Y 02/08/2014 @LAPAROSCOPIC GASTROPLASTY, performed by Wally Pfeiffer MD at [facility] OR ??? PRO LAP, DIAGNOSTIC ABDOMEN 02/10/2014 LAPAROSCOPY, DIAGNOSTIC, ABDOMEN performed by Wally Pfeiffer MD at [facility] OR ??? PRO REPAIR INCISIONAL HERNIA, REDUCIBLE N/A 05/17/2016 REPAIR INITIAL INCISIONAL OR VENTRAL HERNIA REDUCIBLE [facility] ??? PRO UNLISTED LAPAROSCOPIC PROCEDURE ESOPHAGUS 02/08/2014 LAPAROSCOPIC REVISION OF DELROY FUNDOPLASTY performed by Wally Pfeiffer MD at [facility] OR ??? PRO UPPER GI ENDOSCOPY, BIOPSY 12/11/2013 UPPER GASTROINTESTINAL ENDOSCOPY,WITH BIOPSY SINGLE OR MULTIPLE performed by Wally Pfeiffer MDat [facility] ENDOSCOPY ??? PRO UPPER GI ENDOSCOPY, DIAGNOSTIC 12/25/2013 EGD, UPPER GI ENDOSCOPY performed by Wally Pfeiffer MD at [facility] ENDOSCOPY ??? PRO UPPER GI ENDOSCOPY, DIAGNOSTIC 02/08/2014 ENDOSCOPY, UPPER GI, DIAGNOSTIC, WITH OR WITHOUT SPECIMENS performed by Wally Pfeiffer MD at [facility] OR ??? TONSILLECTOMY ??? TOTAL KNEE ARTHROPLASTY bilateral ??? VASECTOMY Patient Vitals for the past 24 hrs: BP Temp Temp src Pulse Resp SpO2 Height Weight 10/13/21 1115 139/77 36.8 ??C (98.2 ??F) Temporal (!) 105 18 97 % 177.2 cm (5' 9.75) 97.5 kg (215 lb) NAD, A&O Regular rate, normal S1, S2, no murmurs, rubs, gallops Unlabored, clear to auscultation bilateral Soft, NTND Well perfused extremities A/P: Eugene Purvis is a 70 y.o. male who presents for the reasons listed above. Procedure and risks have been explained to the patient and all questions were answered. Informed consent has been obtained. Pt is ready for the OR. Jose C Skaggs MD documented in this encounter Miscellaneous Notes * Brief Op Note - Romario Womack Jr., MD - 10/13/2021 12:53 PM EST Brief Operative Note Patient Name: Eugene Purvis : [id number] MR#: [id number] Case Date: 10/13/2021 Surgeon: Surgeon(s) and Role: * Romario Womack Jr., MD - Primary * Jose C Skaggs MD - Resident Preoperative diagnosis: stone Postoperative diagnosis: stone with turbid urine Procedure(s) (LRB): CYSTO, STENT PLACEMENT (WRVU 2.82) (Left) CYSTO, RETROGRADE, URETEROPYELOGRAPHY (WRVU 2.37) (Left) Anesthesia: General Findings: turbid urine identified on cystoscopy. Stent with debris noted. Thus, ureteroscopy not performed and existing stent was removed. 5 ml upper tract urine aspirated and sent for culture and gram stain. Low pressure instillation of 3 ml of contrast performed for retrograde pyelogram to confirm positioning of renal pelvis as well as ureteral length. New 7fr 24 cm stent placed with proximal curl in renal pelvis and distal curl in bladder--effluxing urine briskly Complications: none evident Intake: Intraprocedure Crystalloid Total Intake lactated ringers infusion 900.00 mL Total Intake 900 mL Output Blood Loss 3 mL Total Output 3 mL Net Net Volume 897 mL Transfusion No data found in the last 1 encounters. Output: Estimated Blood Loss: 3ml Drains: 7fr 24cm left ureteral stent Specimens removed during surgery: renal pelvic urine for culture and gram stain; bladder urine for culture Disposition: awakened from anesthesia, extubated and taken to the recovery room in a stable condition, having suffered no apparent untoward event. Condition: doing well without problems Attestation: Case Date: 10/13/2021 I was present and I participated during the entire procedure. (Please see the Surgical Encounter Summary for any Implant and Specimen details pertinent to this patient.) * Op Note - Romario Womack Jr., MD - 10/13/2021 12:28 PM EST Operative Note Patient Name: Eugene Purvis : [id number] MR#: [id number] Case Date: 10/13/2021 Surgeon: Surgeon(s) and Role: * Romario Womack Jr., MD - Primary * Jose C Skaggs MD - Resident Preoperative diagnosis: stone Postoperative diagnosis: stone with turbid urine Procedure(s) (LRB): CYSTO, STENT PLACEMENT (WRVU 2.82) (Left) CYSTO, RETROGRADE, URETEROPYELOGRAPHY (WRVU 2.37) (Left) Anesthesia: General Findings: turbid urine identified on cystoscopy. Stent with debris noted. Thus, ureteroscopy not performed and existing stent was removed. 5 ml upper tract urine aspirated and sent for culture and gram stain. Low pressure instillation of 3 ml of contrast performed for retrograde pyelogram to confirm positioning of renal pelvis as well as ureteral length. New 7fr 24 cm stent placed with proximal curl in renal pelvis and distal curl in bladder--effluxing urine briskly Complications: none evident Intake: Intraprocedure Crystalloid Total Intake lactated ringers infusion 900.00 mL Total Intake 900 mL Output Blood Loss 3 mL Total Output 3 mL Net Net Volume 897 mL Transfusion No data found in the last 1 encounters. Output: Estimated Blood Loss: 3ml Drains: 7fr 24cm left ureteral stent Specimens removed during surgery: renal pelvic urine for culture and gram stain; bladder urine for culture Disposition: awakened from anesthesia, extubated and taken to the recovery room in a stable condition, having suffered no apparent untoward event. Condition: doing well without problems Indication: Known left renal pelvic stone. Concern for active UTI with Ureteral stent in place thatis due for exchange. Procedure: The patient was identified in the pre-operative holding area. Consent was verified. The correct side of the procedure was marked. The patient was taken to the operating room and placed supine on the operating table. General anesthesia was induced. The patient was then moved to the lithotomy position and prepped and draped in the usual sterile fashion. A timeout was performed involving all membersof the OR team confirming the patient's identity and planned procedure. Preoperative antibiotics were administered. A 22 Fr rigid cystoscope was inserted into the bladder. 360 degree cystoscopy revealed diffuse erythema and debris. The existing left ureteral stent was seen with white fluffy debris on it. This was grasped and removed to the meatus. A glide wire was passed through the stent and seen to be in the renal pelvis. Next a Pollack catheter was inserted. The pollack catheter was advanced to the renal pelvis where urine was aspirated and sent for culture. 3 ml of contrast was administered under low pressure to opacify the renal pelvis and ureter, confirming appropriate position and allowing measurement of the ureter at 24cm. A glidewire was inserted via the pollack catheter and noted to be within the renal pelvis on fluoroscopy. The Pollack catheter was then removed and a 7 Fr 24cm double-J stentwas passed over the wire. The proximal coil was visualized on fluoroscopy to be within the renal pelvis, and the distal coil was seen with direct visualization in the bladder. The bladder was emptied. The cystoscope was removed. The patient tolerated the procedure well and was awakened from anesthesia with no adverse events. The patient was taken to the recovery area in stable condition. Dr. Womack, the attending surgeon, was present for the entire procedure. Plan -- await urine culture results and treat accordingly, with planned URS in approximately 2-3 weeks documented in this encounter Plan of Treatment Upcoming Encounters Date Type Department Care Team (Late st Contact Info) Description 05/15/2024 10:00 AM EDT Office [place] [address] Catrachito Mehta MD [facility] [place] [address] [phone] (work) documented as of this encounter Procedures Procedure Name Priority Date/Time Associated Diagnosis Comments XR FLUORO NO RAD <1HR - OR USE Routine 10/13/2021 1:23 PM EST HC URINE CULTURE Routine 10/13/2021 12:4 5 PM EST HC URINE CULTURE Routine 10/13/2021 12:4 4 PM EST Cystourethroscopy, Ureter Catheter ([id number]) 10/13/2021 12:04 PM EST stone Cystoscopy, Insert Ureteral Stent ([id number]) 10/13/2021 12:04 PM EST stone URINALYSIS MICROSCOPIC EXAM STAT 10/13/2021 11:04 AM EST URINALYSIS WITH REFLEX CULTURE STAT 10/13/2021 11:04 AM EST URINE CULTURE STAT 10/13/2021 11:04 AM EST POCT FINGERSTICK GLUCOSE Routine 10/13/2021 documented in this encounter Results * XR Fluoro No Rad <1Hr - OR Use (10/13/2021 1:23 PM EST) Narrative Dicom, Auditing User - 10/13/2021 1:24 PM EST This exam is auto-finalizing. No interpretation was done. Romario Womack Jr., MD IMG FLUORO ORDERAB LES * (ABNORMAL) Urine culture Cystoscopic Urine (10/13/2021 12:45 PM EST) Urine Culture Greater than 50,000 cfu/mL Roxy albicans Greater than 50,000 cfu/mL Roxy glabrata (A) [facility] Gram Stain Many Neutrophils seen Moderate Yeast seen (A) [facility] Organism Roxy albicans(A) [facility] Organism Roxy glabrata(A) [facility] Organism Yeast(A) [facility] Cystoscopic Urine 10/13/2021 12:45 PM EST 10/13/2021 2:02 PM EST Comment:Left renal urine for culture and gram stain Narrative Resulting Agency Comment Spec In Lab Romario Womack Jr., MD MICROBIOLOGY - GEN ERAL ORDERABLES Performing Organization Address City/[facility]/[place] [address] * (ABNORMAL) Urine culture Cystoscopic Urine (10/13/2021 12:44 PM EST) Urine Culture Greater than 50,000 cfu/mL Roxy glabrata 1,000-9,000 cfu/ml Roxy albicans (A) [facility] Organism Roxy glabrata(A) [facility] Organism Roxy albicans(A) [facility] Cystoscopic Urine 10/13/2021 12:44 PM EST 10/13/2021 2:01 PM EST Comment:Cystoscopic bladder urine for culture Narrative Resulting Agency Comment Spec In Lab Romario Woamck Jr., MD MICROBIOLOGY - GEN ERAL ORDERABLES Performing Organization Address [facility] Co de Phone Number [facility] [place] [address] * (ABNORMAL) Urine culture (10/13/2021 11:04 AM EST) Urine Culture 10,000-49,00 0 cfu/ml Roxy glabrata 1,000-9,000 cfu/ml Roxy albicans 1,000-9,000 cfu/ml mixed mucosal red (A) [facility] Organism Roxy glabrata(A) [facility] Organism Roxy albicans(A) [facility] Clean Catch Urine 10/13/2021 11:04 AM EST 10/13/2021 2:26 PM EST Narrative Resulting Agency Comment Spec In Lab Jose C Skaggs MD MICROBIOLOGY - GENERAL ORDERABLES [facility] [place] [address] * (ABNORMAL) Urinalysis Microscopic Exam (10/13/2021 11:04 AM EST) RBC UA 15(H) 0 - 3 /HPF [facility] WBC UA >100(H) 0 - 3 /HPF [facility] Bacteria UA Rare(A) None /HPF [facility] Yeast [place] UA Few(A) None /HPF [facility] Squam Epith UA 3 <=4 /HPF [facility] Hyaline Cast UA 2 0 - 2 /LPF [facility] Clean Catch Urine 10/13/2021 11:04 AM EST 10/13/2021 11:15 AM EST Narrative Resulting Agency Comment Spec In Lab Jose C Skaggs MD URINE ORDERAB LES Performing Organization Address City/State/[facility] Co de Phone Number [facility] [place] [address] * (ABNORMAL) Urinalysis with reflex Culture (10/13/2021 11:04 AM EST) Glucose UA 100(A) Negative mg/dL [facility] Protein UA 30(A) Negative mg/dL [facility] Bilirubin UA Negative Negative mg/dL [facility] Comment: Clinical correlation required for positive Urine Bilirubin results as false positive may occur with some drugs and drug related products. If a false positive is suspected a serum total bilirubin should be considered if clinically indicated. Urobilinogen UA Normal Normal mg/dL [facility] pH UA 5.0 5.0 - 8.0 [facility] Blood UA Small(A) Negative mg/dL [facility] Ketones UA Negative Negative mg/dL [facility] Nitrite UA Negative Negative [facility] Leukocytes UA Large(A) Negative mcL [facility] Appearance UA Turbid(A) Clear [facility] Spec [place] UA 1.013 1.005 - 1.030 [facility] Color UA Yellow Yellow [facility] Culture Reflexed Yes [facility] Clean Catch Urine 10/13/2021 11:04 AM EST 10/13/2021 11:15 AM EST Narrative Resulting Agency Comment Spec In Lab Romario Womack Jr., MD URINE ORDERABLES [facility] [place] [address] * POCT Fingerstick Glucose (10/13/2021) POC Glucose 124 60 - 199 mg/dl Comment:RN notified 10/13/2021 Romario Womack Jr., MD POINT OF CARE TEST ORDERABLES documented in this encounter Visit Diagnoses Not on filedocumented in this encounter Administered Medications Inactive Administered Medications - up to 3 most recent administrations Medication Order MAR Action Action Date Dose Rate Site acetaminophen (Tylenol) tablet 1,000 mg 1,000 mg, Oral, ONCE, 1 dose, On Sat10/13/21 at 1130, Administer with SIP of H2O only., Day of Surgery (Day of Procedure), Routine Given 10/13/2021 11:30 AM EST 1,000 mg iohexoL (Omnipaque) (300 mg/mL) solution ONCE PRN, Starting on Sat10/13/21 at 1112, Until Sat10/13/21 at 1541, Intra-Operative (Intra-Procedure), Routine Given 10/13/2021 11:12 AM EST 50 mLs 19- Surgical Site lactated ringers infusion 1,000 mL, at 100 mL/hr, Intravenous, CONTINUOUS, Starting on Sat10/13/21 at 1130, Until Sat10/13/21 at 1541, Day of Surgery (Day of Procedure) New Bag 10/13/2021 12:48 PM EST New Bag 10/13/2021 11:47 AM EST 1,000 mLs 100 mL/hr lidocaine (Xylocaine) 1% (10 mg/mL) injection 3 mg 3 mg (0.3 mL), Subcutaneous, ONCE PRN, 1 dose, Starting on Sat10/13/21 at 1104, Until Sat10/13/21 at 1541, for discomfort with PIV insertion, Day of Surgery (Day of Procedure), Routine metoprolol tartrate (Lopressor) tablet 50 mg 50 mg, Oral, ONCE, 1 dose, On Sat10/13/21 at 1200, Day of Surgery (Day of Procedure), Routine Given 10/13/2021 11:41 AM EST 50 mg sodium chloride 0.9 % (flush) (BD PosiFlush Normal Saline 0.9) flush 5-20 mL 5-20 mL, Intravenous, EVERY 1 MIN PRN, Starting on Sat10/13/21 at 1104, Until Sat10/13/21 at 1541, flush, Flush pertains to all indwelling lines. Flush per protocol found in the job aid using the link provided on this medication record., Day of Surgery (Day of Procedure), Routine documented in this encounter Active and Recently Administered Medications Times are shown in EST. Scheduled Medication Order 10/11/2021 10/12/2021 10/13/2021 acetaminophen (Tylenol) tablet 1,000 mg (COMPLETED) 1,000 mg, Oral, ONCE, 1 dose, On Sat10/13/21 at 1130, Administer with SIP of H2O only., Day of Surgery (Day of Procedure), Routine 1130 (Given - Provid er: Jose Carter RN) ceFAZolin (Ancef) 2 g in dextrose 5% 100 mL infusion (COMPLETED) 2 g, Intravenous, SENIOR RESEARCH ANALYST TO O.R., 1 dose, On Sat10/13/21 at 0645, Administer over 30 Minutes, Indication for (Active or Suspected): Prophylaxis 1221 (Given - Provid er: Nereyda Pina CRNA) metoprolol tartrate (Lopressor) tablet 50 mg (COMPLETED) 50 mg, Oral, ONCE, 1 dose, On Sat10/13/21 at 1200, Day of Surgery (Day of Procedure), Routine 1141 (Given - Provid er: Jose Carter RN) Continuous Medication Order 10/11/2021 10/12/2021 10/13/2021 lactated ringers infusion 1,000 mL, at 100 mL/hr, Intravenous, CONTINUOUS, Starting on Sat10/13/21 at 1130, Until Sat10/13/21 at 1541, Day of Surgery (Day of Procedure) 1147 (New Bag - Prov ider: Jose Carter RN)1247 (Paused - Provider: Nereyda Pina CRNA - Comment: Switch to gravity)1248 (New Bag - Provider: Nereyda Pina CRNA) PRN Medication Order 10/11/2021 10/12/2021 10/13/2021 iohexoL (Omnipaque) (300 mg/mL) solution (CANCELED) ONCE PRN, Starting on Sat10/13/21 at 1112, Until Sat10/13/21 at 1541, Intra-Operative (Intra-Procedure), Routine 1112 (Given - Provid er: Romario Womack Jr., MD - Comment: dispensed to sterile field for used by surgeon prn) lidocaine (Xylocaine) 1% (10 mg/mL) injection 3 mg 3 mg (0.3 mL), Subcutaneous, ONCE PRN, 1 dose, Starting on Sat10/13/21 at 1104, Until Sat10/13/21 at 1541, for discomfort with PIV insertion, Day of Surgery (Day of Procedure), Routine sodium chloride 0.9 % (flush) (BD PosiFlush Normal Saline 0.9) flush 5-20 mL 5-20 mL, Intravenous, EVERY 1 MIN PRN, Starting on Sat10/13/21 at 1104, Until Sat10/13/21 at 1541, flush, Flush pertains to all indwelling lines. Flush per protocol found in the job aid using the link provided on this medication record., Day of Surgery (Day of Procedure), Routine documented in this encounter Care Teams Managed Care Specialist Relationship Specialty Start Date End Date David Massey MD [address] [place] [address] PCP - General Emergency Medicine 03/31/21 documented as of this encounter
--- OUTSIDE RECORDS SUMMARY | 2024-04-27 14:53 | XMS_ITS | Encounter Summary ---
[facility] [address] Care Team Providers Care Steam Boiler Fireman Name Role Phone David Massey MD Primary Care Provider [phone] Encounter Details Date Type Department Care Team (Late st Contact Info) Description 01/11/2022 Orders Only [place] [address] Julienne Tinoco, RN Venous insufficiency of both lower extremities Social History Tobacco Use Types Packs/Day Years [...] as of this encounter Progress Notes * Julienne Tinoco RN - 01/11/2022 8:50 AM EDT This global technical writer phoned the patient regarding their upcoming vascular surgery/procedure. Informed him that orders have been placed, and scheduling of the date is in process. Also informed that other surgical/procedural staff will call 1-3 days prior to let them know where and when to arrive, if you needto be fasting, what to do with your other medications, and additional pertinent information. Informed to hold the Eliquis for 2 days prior to the vascular surgical/procedural date (once that date has been identified). Patient repeated medication plan back to this global technical writer. documented in this encounter Plan of Treatment Upcoming Encounters Date Type Department Care Team (Late st Contact Info) Description 05/15/2024 10:00 AM EDT Office [place] [address] Catrachito Mehta MD [facility] [place] [address] documented as of this encounter Visit Diagnoses Diagnosis Venous insufficiency of both lower extremities documented in this encounter Care Teams Steam Boiler Fireman Relationship Specialty Start Date End Date David Massey MD [address] [place] [address] PCP - General Emergency Medicine 03/31/21 documented as of this encounter
--- OUTSIDE RECORDS SUMMARY | 2024-04-27 14:53 | XMS_ITS | Encounter Summary ---
Author Organization [facility] Address [facility] [place] [address] Care Team Providers Care Commercial Attache Name Role Phone David Massey MD Primary Care Provider [phone] Reason for Visit * Reason Comments Nephrolithiasis * Consultation (Urgent) - Closed Specialty Diagnoses / Procedures Referred By Sonal dawson Referred To Contact Urology Diagnoses Calculus of ureter 07/14 - GRACY REVIEWIING - STONES Tamir Osuna MD [address] [place] [address] [facility] [place] [address] Referral ID Status Reason Start Date Expiration Date V isits Requested Visits Authorized [id number] Closed Consult, Test & Treat Connection Center PCP Updated and/or Approved 06/30/2021 06/30/2022 6 6 Encounter Details Date Type Department Care Team (Late st Contact Info) Description 09/12/2021 3:40 PM EST Office [place] [address] Catrachito Mehta MD [facility] [place] [address] Ureteral stone Social History Tobacco Use Types Packs/Day Years [...] Sign Reading Time Taken Comments Blood Pressure 153/73 09/12/2021 4:04 PM EST Pulse 93 09/12/2021 4:04 PM EST Temperature - - Respiratory Rate - - Oxygen Saturation - - Inhaled Oxygen Concentration - - Weight - - Height - - Body Mass Index - - documented in this encounter Progress Notes * Catrachito Mehta MD - 09/12/2021 3:40 PM EST UROLOGY NEW PATIENT VISIT CC: left renal stone HPI: 70 yo male referred to here by Dr Osuna for a left sided ureteral stone. He underwent a left ureteroscopy in 06/27 which was partially completed. The stone was pushed back into the kidney and partially fragmented. A 4.8F stent was placed and due to other comorbidies (a.fib, COPD, DM) the decision was made to refer him to here for the 2nd stage ureteroscopy. He does have a history of bladder cancer, but has not had recurrence this year. He denies any hematuria, pain or stent related discomfort. Patient Active Problem List Diagnosis Date Noted ??? Preoperative Class II obesity, S/P gastric [...] 07/10/2013 ??? DM (diabetes mellitus) 07/10/2013 Past Surgical History: Procedure Laterality Date ??? CHOLECYSTECTOMY ??? PRO EXCISE EXCESS SKIN TISSUE, ABDOMEN N/A 05/17/2016 ABDOMINOPLASTY performed by Adis Membreno MD at [facility] OR ??? PRO LAP GASTRIC BYPASS/KEYSHA-EN-Y 02/08/2014 @LAPAROSCOPIC GASTROPLASTY, performed by Wally Pfeiffer MD at [facility] OR ??? PRO LAP, DIAGNOSTIC ABDOMEN 02/10/2014 LAPAROSCOPY, DIAGNOSTIC, ABDOMEN performed by Wally Pfeiffer MD at [facility] OR ??? PRO LAP, ESOPHAGUS, OTHER PROC 02/08/2014 LAPAROSCOPIC REVISION OF DELROY FUNDOPLASTY performed by Wally Pfeiffer MD at [facility] OR ??? PRO REPAIR INCISIONAL HERNIA, REDUCIBLE N/A 05/17/2016 REPAIR INITIAL INCISIONAL OR VENTRAL HERNIA REDUCIBLE [facility] ??? PRO UPPER GI ENDOSCOPY, BIOPSY 12/11/2013 UPPER GASTROINTESTINAL ENDOSCOPY,WITH BIOPSY SINGLE OR MULTIPLE performed by [facility] ??? PRO UPPER GI ENDOSCOPY, DIAGNOSTIC 12/25/2013 EGD, UPPER GI ENDOSCOPY performed by Wally Pfeiffer MD at [facility] END[facility]COPY ??? PRO UPPER GI ENDOSCOPY, DIAGNOSTIC 02/08/2014 ENDOSCOPY, UPPER GI, DIAGNOSTIC, WITH OR WITHOUT SPECIMENS performed by Wally Pfeiffer MD at [facility] OR ??? TONSILLECTOMY ??? TOTAL KNEE ARTHROPLASTY bilateral ??? VASECTOMY Social History Socioeconomic History ??? Marital status: Spouse name: None ??? Number of children: None ??? Years of education: None ??? Highest education level: None Occupational History ??? None Tobacco Use ??? Smoking status: Never Smoker ??? Smokeless tobacco: Never Used Vaping Use ??? Vaping Use: Never used Substance and Sexual Activity ??? Alcohol use: No Comment: 4x year ??? Drug use: No ??? Sexual activity: Never Other Topics Concern ??? Exercise: Patient reported No ??? Abuse or Threat: Physical, Sexual, Verbal No ??? Abuse or Threat: Help requested by patient No Social History Narrative ??? None Social Determinants of Health Financial Resource Strain: Not on file Food Insecurity: Not on file Transportation Needs: Not on file Physical Activity: Not on file Housing Stability: Not on file Family History Problem Relation Age of Onset ??? Breast Cancer Sister ROS: General Health: GENERAL: Denies fevers, sweats, chills, anorexia, denies weight changes. SYSTEM SALES CONSULTANT: Denies loss of consciousness, denies balance difficulty, denies pins/needle sensations. HEENT: Denies headaches and vision changes. RESP: Denies cough or breathing difficulties. CVS: Denies chest pain and RAMIREZ. No claudication. GI: Denies nausea/vomiting/diarrhea/constipation. Normal appetite and bowels. : see hpi MUSCULOSKELETAL: Denies joint or muscle aches. Denies back pain. SKIN: lower extremity diabetic changes. HEME: Denies bleeding tendencies, bruisability. EXAMINATION: Patient Vitals for the past 24 hrs: Pulse BP 09/12/21 1604 93 153/73 GENERAL: alert, oriented, nad. HEENT: Atraumatic, normocephalic. Anicteric sclera. MMM. NECK: Supple with no significant lymphadenopathy. RESPIRATORY: Unlabored respirations with no audible wheezing. CARDIAC: Regular rhythm with no audible MGR. ABDOMEN: Benign without masses. No rebound or guarding. RUQ scar noted. BACK: No CVA tenderness GENITALIA: Scrotum - Color and texture normal; no masses. Testicles and epididymides - No tenderness or masses. Penis - Circumcised with orthotopic meatus; no masses or surface lesions. NEUROLOGIC: Alert and oriented x 3. LABS: urine dipped + for leuk, blood and glucose. Sent for culture. IMAGING: CT abdomen/pelvis reviewed by me, showing a proximal 7-8mm obstructing left ureteral stone. ASSESSMENT/PLAN: #left renal/ureteral stone #history of bladder cancer #moderate comorbidities I explained to him the management options for a left renal/ureteral stone, including conservative management (removal of the stent), or to schedule a repeat left ureteroscopy with laser lithotripsy and a stent exchange. I explained to him the risks of surgery, including bleeding, infection, injury to the kidney/ureter/urethra/bladder. He expressed interest in proceeding with surgery and will scheduled accordingly. documented in this encounter Plan of Treatment Upcoming Encounters Date Type Department Care Team (Late st Contact Info) Description 05/15/2024 10:00 AM EDT [place] [address] Catrachito Mehta MD [facility] [place] [address] documented as of this encounter Visit Diagnoses Diagnosis Ureteral stone Calculus of ureter documented in this encounter Care Teams Commercial Attache Relationship Specialty Start Date End Date David Massey MD [address] [place] [address] PCP - General Emergency Medicine 03/31/21 documented as of this encounter
--- OUTSIDE RECORDS SUMMARY | 2024-04-27 14:53 | XMS_ITS | Encounter Summary ---
Author Organization [facility] [place] [address] Care Team Providers Care Phys Therapist Name Role Phone Dominic Restrepo MD Primary Care Provider [phone] Encounter Details Date Type Department Care Team (Late Contact Info) Description 06/24/2018 Telephone [place] [address] Rosalinda-Ansley Javier Social History Tobacco Use Types Packs/Day Years [...] encounter Miscellaneous Notes * Telephone Encounter - Ansley Tellez - 06/24/2018 1:45 PM EDT LMOM for to see if patient is interested in scheduling a follow-up visit. I asked them to give us acall back to set up an appointment and let them know that I will be mailing them a letter in the mail. documented in this encounter Plan of Treatment Upcoming Encounters Date Type Department Care Team (Late Contact Info) Description 05/15/2024 10:00 AM EDT [place] [phone] Catrachito Mehta MD [facility] [place] [address] documented as of this encounter Visit Diagnoses Not on filedocumented in this encounter Care Teams Phys Therapist Relationship Specialty Start Date End Date Dominic Restrepo MD [address] [place] [address] PCP - General Family Medicine 04/22/17 03/30/21 documented as of this encounter
--- OUTSIDE RECORDS SUMMARY | 2024-04-27 14:53 | XMS_ITS | Encounter Summary ---
Author Organization [facility] [place] [address] Care Team Providers Care Stereotype Caster Name Role Phone David Massey MD Primary Care Provider [phone] Encounter Details Date Type Department Care Team (Late Contact Info) Description 03/31/2021 Orders Only [place] [address] [facility] [place] [place] [address] Leg edema Social History Tobacco Use Types Packs/Day Years [...] AM EDT Office [place] [phone] [facility] [place] [address] documented as of this encounter Visit Diagnoses Diagnosis Leg edema Edema documented in this encounter Care Teams Stereotype Caster Relationship Specialty Start Date End Date David Massey MD [address] [place] [address] PCP - General Emergency Medicine 03/31/21 documented as of this encounter
--- OUTSIDE RECORDS SUMMARY | 2024-04-27 14:53 | XMS_ITS | Encounter Summary ---
Author Organization [facility] [place] [address] Care Team Providers Care Sledger Name Role Phone David Massey MD Primary Care Provider [phone] Reason for Referral * Consultation (Routine) - Closed Specialty Diagnoses / Procedures Referred By Sonal dawson Referred To Contact Vascular Surgery Diagnoses Chronic venous insufficiency David Massey MD [address] [place] [address] [facility] [address] [place] [address] Referral ID Status Reason Start Date Expiration Date V isits Requested Visits Authorized [id number] Closed Consult, Test & Treat PCP Updated and/or Approved 12/05/2021 12/05/2022 12 12 Encounter Details Date Type Department Care Team (Latest Contact Info) Description 12/05/2021 Transcribe [place] [address] David Massey MD [address] [place] [address] Chronic venous insufficiency Social History Tobacco Use Types Packs/Day Years [...] 10:00 AM EDT [place] [address] Catrachito Mehta MD [facility] [place] [place] [address] Scheduled Referrals Name Type Priority Associated Diagnoses Orde r Schedule Referral to Vascular Surgery Outpatient Referral Routine Chronic venous insufficiency Ordered: 12/05/2021 documented as of this encounter Visit Diagnoses Diagnosis Chronic venous insufficiency Unspecified venous (peripheral) insufficiency documented in this encounter Care Teams Sledger Relationship Specialty Start Date End Date David Massey MD [address] [place] [address] PCP - General Emergency Medicine 03/31/21 documented as of this encounter
--- OUTSIDE RECORDS SUMMARY | 2024-04-27 14:53 | XMS_ITS | Encounter Summary ---
[place] [address] Care Team Providers Care Retail Service Lead Merchandiser Name Role Phone David Massey MD Primary Care Provider [phone] Reason for Referral * Consultation (Routine) - Closed Specialty Diagnoses / Procedures Referred By Sonal dawson Referred To Contact Urology Diagnoses Ureterolithiasis Urothelial carcinoma of left distal ureter David Massey MD [address] [place] [address] [facility] [place] [address] Referral ID Status Reason Start Date Expiration Date V isits Requested Visits Authorized [id number] Closed Consult, Test & Treat PCP Updated and/or Approved 01/04/2022 01/04/2023 12 12 Encounter Details Date Type Department Care Team (Latest Contact Info) Description 01/04/2022 Transcribe Orders eDH Incoming Referrals [phone] David Massey MD [address] [place] [address] Ureterolithiasis; Urothelial carcinoma of left distal ureter Social History Tobacco Use Types Packs/Day Years [...] 10:00 AM EDT [place] [address] Catrachito Mehta MD [facility] [place] [address] Scheduled Referrals Name Type Priority Associated Diagnoses Orde r Schedule Referral to Urology Outpatient Referral Routine Ureterolithiasis Urothelial carcinoma of left distal ureter Ordered: 01/04/2022 documented as of this encounter Visit Diagnoses Diagnosis Ureterolithiasis Calculus of ureter 

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
--- OUTSIDE RECORDS SUMMARY | 2024-04-27 14:53 | XMS_ITS | Encounter Summary ---
Author Organization [facility] Address [facility] [place] [address] Care Team Providers Care Industry Consultant Name Role Phone David Massey MD Primary Care Provider [phone] Reason for Visit * Auth/Cert Specialty Diagnoses [...] Expiration Date Visits Re quested Visits Authorized [id number] 1 1 Encounter Details Date Type Department Care Team (Late st Contact Info) Description 10/13/2021 12:04 PM EST Anesthesia Event [place] [address] Onur Walker MD [facility] [address] Naomie Graham APR[place] [address] Anesthesia Record Procedure Summary Procedure Name Responsible Anesthesiologist Anesthesia Start Time Anesthesia Stop Time CYSTO, STENT PLACEMENT (WRVU 2.82) (Left: Bladder) Onur Walker MD 10/13/21 1204 10/13/21 1300 Events Date Time Event Comment 10/13/2021 1144 1204 AN Verify 1204 Start 1206 An Start Data 1208 An Induction 1210 An Intubation 1212 Anesthesia Ready 1255 an stop data 1258 Extubation/LMA Out 1300 Recovery or ICU Handoff Sonya ent care was transferred to the destination unit staff after review of the patient's medical history, current anesthetic/surgical status and plan, according to the Provider Handoff Checklist. 1300 Stop Meds Name Total Midazolam 2 mg fentaNYL 100 mcg IV Lidocaine 60 mg Propofol 200 mg Propofol INF 146.25 mg Ondansetron 4 mg PHENYLephrine 720 mcg meTOPROLOL (LOPRESSOR) injection 2 mg ceFAZolin (Ancef) 2 g in dextrose 5% 100 mL infusion 2 g lactated ringers infusion 900 mL * Agents Name O2 Air N2O [...] 10/13/21 1228 by Calli Carrera RN Incision 02/08/14; 1030; abdomen; laparoscopic punctures [...] (RETIRED) Peripheral IV Line - Single Lumen 10/13/21; 1141; median cubital vein (antecubital fossa), right; esot-cfi-eovmqu catheter system; 20 gauge; distraction, tolerated well, appears comfortable; 10/13/21; 1328 10/13/21 1141 by Jsoe Carter RN 10/13/21 1328 by Aida Edwards RN Supraglottic Mask Ventilation: No t Attempted (0); LMA Type: iGel; LMA Size: 4; Inserted by: Silvana VEGAS; Removal Date: 10/13/21; Removal Time: 1301 10/13/21 1210 by Nereyda Pina CRNA 10/13/21 1301 by Nereyda Pina CRNA documented in this encounter Social History [...] OR Notes * Anesthesia Postprocedure Evaluation - Onur Walker MD - 10/13/2021 1:35 PM EST Department of Anesthesiology Post-procedure Note Patient: Eugene Rueda Procedure Summary Date: 10/13/21 Room / Location: [address] Anesthesia Start: 1204 Anesthesia Stop: 1300 Procedures: CYSTO, STENT PLACEMENT (WRVU 2.82) (Left Bladder) CYSTO, RETROGRADE, URETEROPYELOGRAPHY (WRVU 2.37) (Left Bladder) Diagnosis: (stone) Surgeons: Romario Womack Jr., MD Responsible Provider: Onur Walker MD Anesthesia Type: general ASA Status: 3 All Anesthesia Providers: Anesthesiologist: Onur Walker MD INDUCTION MACHINE OPERATOR: Nereyda Pina CRNA Vitals Value Taken Time BP 107/78 10/13/21 1315 Temp 36.9 ??C (98.4 ??F) 10/13/21 1257 Pulse 77 10/13/21 1315 Resp 16 10/13/21 1315 SpO2 97 % 10/13/21 1315 Pain Level 0 10/13/21 1315 Patient Location: PACU/[facility] Level of Consciousness: Awake and Alert Pain Management: Satisfactory Analgesia PONV: None Cardiovascular Status: Hemodynamically Stable Respiratory Status: Stable Respiratory Status Postoperative Fluid Status: Intravascular EUvolemia Possible Anesthetic Complications: NONE apparent at time of evaluation Final Primary Anesthesia Type: General (The anesthetic type performed was the same as planned.) Comments: Tachycardic throughout most of the case but doing well post-op. I encouraged him to take his long acting metoprolol in the am as scheduled for future procedures. ONUR WALKER MD * Anesthesia Preprocedure Evaluation - Onur Walker MD - 10/09/2021 10:17 AM EST Pre-Anesthesia Evaluation for: Eugene Rueda a 70 y.o. male. Procedure(s): CYSTOURETEROSCOPY,DIAGNOSTIC,W/ LITHOTRIPSY INC. INSERTION OF INDWELLING URETERAL STENT (WRVU 8) CYSTO, REMOVAL OF STENT, FOREIGN BODY OR CALCULUS, SIMPLE (WRVU 2.81) MODIFIER HOLMIUM LASER Patient Active Problem List Diagnosis ??? Preoperative Class II obesity, S/P gastric bypass February 2014 ??? Decreased hearing, wears hearing aid right ear ??? Hyperlipidemia ??? Chronic anticoagulation ??? History of renal stone ~ ??? CARLOS A (obstructive sleep apnea) ??? Type 2 diabetes mellitus ??? GERD (gastroesophageal reflux disease) ??? Varicose veins ??? Carpal tunnel syndrome ??? Asbestosis(501) ??? Pterygium ??? Fatigue ??? Depression ??? Hip arthritis ??? S/P knee replacement ??? HTN (hypertension) ??? Atrial fibrillation ??? PVD (peripheral vascular disease) ??? DM (diabetes mellitus) Past Medical History: Diagnosis Date ??? Blood disorder ??? Circulatory disease ??? Diabetes Past Surgical History: Procedure Laterality Date ??? CHOLECYSTECTOMY ??? PRO EXCISE EXCESS SKIN TISSUE, ABDOMEN N/A 05/17/2016 ABDOMINOPLASTY performed by Adis Membreno MD at [facility] OR ??? PRO LAP GASTRIC BYPASS/KEYSHA-EN-Y 02/08/2014 @LAPAROSCOPIC GASTROPLASTY, performed by Wally Pfeiffer MD at [facility] OR ??? PRO LAP, DIAGNOSTIC ABDOMEN 02/10/2014 LAPAROSCOPY, DIAGNOSTIC, ABDOMEN performed by Wally Pfeiffer MD at [facility] OR ??? PRO LAP, ESOPHAGUS, OTHER PROC 02/08/2014 LAPAROSCOPIC REVISION OF DELROY FUNDOPLASTY performed by Wally Pfeiffer MD at [facility] OR ??? PRO REPAIR INCISIONAL HERNIA, REDUCIBLE N/A 05/17/2016 REPAIR INITIAL INCISIONAL OR VENTRAL HERNIA REDUCIBLE [facility] ??? PRO UPPER GI ENDOSCOPY, BIOPSY 12/11/2013 UPPER GASTROINTESTINAL ENDOSCOPY,WITH BIOPSY SINGLE OR MULTIPLE performed by Wally [facility]feiffer MDat [facility] ENDOSCOPY ??? PRO UPPER GI ENDOSCOPY, DIAGNOSTIC 12/25/2013 EGD, UPPER GI ENDOSCOPY performed by Wally Pfeiffer MD at [facility] ENDOSCOPY ??? PRO UPPER GI ENDOSCOPY, DIAGNOSTIC 02/08/2014 ENDOSCOPY, UPPER GI, DIAGNOSTIC, WITH OR WITHOUT SPECIMENS performed by Wally Pfeiffer MD at [facility] OR ??? TONSILLECTOMY ??? TOTAL KNEE ARTHROPLASTY bilateral ??? VASECTOMY Social History Tobacco Use ??? Smoking status: Never Smoker ??? Smokeless tobacco: Never Used Substance Use Topics ??? Alcohol use: No Comment: 4x year Social History Substance and Sexual Activity Drug Use No No Known Allergies Medications: MAR and/or home medications have been reviewed. Physical Exam: Preprocedure Vitals Current as of 10/09/21 1017 No BP, pulse, respiration, SpO2, or temperature recorded. Height: Weight: BMI: IBW: Airway Assessment: Mallampati: III TM distance: >3 FB Neck ROM: full Hx Mac 4 Gr 1 Cardiovascular Assessment: Rhythm: irregular Rate: abnormal Pulmonary Assessment: pulmonary exam normal Dental Assessment: Comment: No loose Misc Assessment: IV access: Peripheral line Last Filed Perioperative Cognitive Screening None Anesthesia Plan: ASA 3 general, with a(n) intravenous induction 70 yo presents for LEFT cystoureteroscopy lithotripsy Hx of procedure aborted 3 months ago for rapid afib (patient with SOB in recovery and admitted to OSH) Afib on eliquis (metoprolol succinate 100 mg each morning but did not take today, have ordered for him to get metoprolol 50 mg po pre-op) CARLOS A and wears CPAP DM (took 10 units of insulin last night 100s-300s at home) GERD well controlled HTN Patient is at increased risks for cardiopulmonary complications Pending urinalysis currently which the surgeons want to evaluate prior to OR PAT note reviewed Gets SOB with stairs (not new) Denies recent CP worsening SOB or URI Nonsmoker, nondrinker Room air sat 97% during our conversation Risks and benefits of anesthesia discussed All questions answered ONUR WALKER MD Region - Other Informed Consent: Anesthetic plan and risks discussed with patient. Plan discussed with INDUCTION MACHINE OPERATOR. Anesthesia Screening Note: Date and Time of Entry: 10/09/2021 12:10 PM Entered By: Naomie Graham APRN Hx of Anesthesia Problem: Hx Afib, DM, COPD Screening Visit Type: Telephone Call Additional/Outside Records Requested? Requested medical information from outside organization. From Where? PCP notes from [facility] Findings, Assessment and Plan: 70 y.o. male with a left renal stone presenting for pre-anesthesia consultation prior to ureteroscopy with laser lithotripsy and stent exchange with Dr. Womack on 10/13/21. MEDICAL HISTORY: Bladder cancer, Afib on eliquis, HTN, PVD, CARLOS A, DM SURGICAL HISTORY: cholecystectomy, keysha en y, partial colectomy ANESTHETIC HISTORY: Denies any history of anesthesia complications. Patient underwent ureteroscopy at [facility] on 06/08/21. A LMA placed without difficulty (anesthesia records scanned under Media). The stone was fragmented and pushed back into the kidney, a stent was placed with plans for a repeat ureteroscopy to remove the stone. Notes from his urologist indicate he developed SOB and a rapid HR postoperatively. He was admitted to the hospitalist service to get his Afib under control. The patient has little recollection of this admission when asked. He states he has been doing fine since surgery. No fever/chills. The patient was referred to [facility] for the second stage of his procedure due to his comorbidities. Allergies reviewed Labs reviewed Meds reviewed FUNCTIONAL EXERCISE TOLLERANCE: >4METS ECHOCARDIOGRAM: 11/18/13 SUMMARY: 1. Technically difficult study. ??Intravenous echo contrast was administered to enhance endocardial border definition. 2. Left ventricular chamber size, wall thickness, global and segmental systolic function are within normal limits. Ejection fraction is estimated to be 60%. 3. The left atrium is moderately dilated. ??The right atrium is moderately dilated. 4. There is mild (1+/4+) mitral regurgitation present. 5. There is mild (1+/4+) tricuspid regurgitation present. 6. See remainder of report for additional findings. EK07/21/21 Atrial fibrillation, low voltage, extremity and precordial leads..extremity <0.5mV, precordial <1.0mV. Baseline wander in lead V2. Chest Xray 06/08/21 No acute pulmonary findings. A left basilar infiltrate is not excluded on this single view ASSESSMENT/PLAN: Eugene Rueda is a 70 y.o. male scheduled for ureteroscopy with laser lithotripsy with Dr. Womack on 10/13/21. He has a history of Afib and HTN. He takes diltiazem, lisinopril and metoprolol. His PCP ([facility]) manages his Eliquis. His last echocardiogram from 2013 showed mild mitral and tricuspid regurgitation with an EF of 60%. He denies any chest pain, palpitations or orthopnea. He walks half a mile daily without SOB. His records indicate a history of COPD but he denies this. He does not use an inhaler. He has CARLOS A and wears a CPAP nightly. Denies a smoking history. He has a history of DM currently managed with dapagliflozin, jardiance, lantus, metformin and rybelsus. Last Hemoglobin A1C from 03/27 was 8.2. Patient checks his blood sugars and reports they range from 111-160. -Most recent notes from PCP requested. (update PCP notes indicate A1C has improved from 11.8 to 9.0as of 08/28/21) -Patient denies any COPD symptoms and is not on any inhalers. He will bring his CPAP with him on his surgery day. -Last echo from 2013 with EF of 60%. Patient appears to have good exercise tolerance and therefore,would not recommend any additional testing at this time. -Patient scheduled for surgery at the [facility]. Will review anesthesia records from June with [facility] anesthesiology team to determine if this is appropriate. Naomie Graham, SEED EXPERT 10/09/2021 documented in this encounter Plan of Treatment Upcoming Encounters Date Type Department Care Team (Late st Contact Info) Description 05/15/2024 10:00 AM EDT [place] [address] Catrachito Mehta MD [facility] [place] [address] documented as of this encounter Visit Diagnoses Not on filedocumented in this encounter Administered Medications Inactive Administered Medications - up to 3 most recent administrations Medication Order MAR Action Action Date Dose Rate Site ceFAZolin (Ancef) 2 g in dextrose 5% 100 mL infusion 2 g, Intravenous, PROFESSOR OF ENGINEERING TO O.R., 1 dose, On Sat10/13/21 at 0645, Administer over 30 Minutes, Indication for (Active or Suspected): Prophylaxis Given 10/13/2021 12:21 PM EST 2 g fentaNYL (pf) (50 mcg/mL) multi-dose injection Intravenous, PRN, Starting on Sat10/13/21 at 1216, Until Sat10/13/21 at 1301, Anesthesia Intra-op, Routine Given 10/13/2021 12:39 PM EST 25 mcg Given 10/13/2021 12:26 PM EST 25 mcg Given 10/13/2021 12:16 PM EST 50 mcg lactated ringers infusion 1,000 mL, at 100 mL/hr, Intravenous, CONTINUOUS, Starting on Sat10/13/21 at 1130, Until Sat10/13/21 at 1541, Day of Surgery (Day of Procedure) New Bag 10/13/2021 12:48 PM EST New Bag 10/13/2021 11:47 AM EST 1,000 mLs 100 mL/hr lidocaine (pf) (Xylocaine) (20 mg/mL) 2% injection syringe Intravenous, PRN, Starting on Sat10/13/21 at 1208, Until Sat10/13/21 at 1301, Anesthesia Intra-op, Routine Given 10/13/2021 12:08 PM EST 60 mg metoprolol (LOPRESSOR) injection Intravenous, PRN, Starting on Sat10/13/21 at 1216, Until Sat10/13/21 at 1301, Anesthesia Intra-op, Routine Given 10/13/2021 12:20 PM EST 1 mg Given 10/13/2021 12:16 PM EST 1 mg midazolam (pf) (Versed) (1 mg/mL) multi-dose injection Intravenous, PRN, Starting on Sat10/13/21 at 1202, Until Sat10/13/21 at 1301, Anesthesia Intra-op, Routine Given 10/13/2021 12:08 PM EST 1 mg Given 10/13/2021 12:02 PM EST 1 mg ondansetron (pf) (Zofran) (2 mg/mL) injection Intravenous, PRN, Starting on Sat10/13/21 at 1230, Until Sat10/13/21 at 1301, Anesthesia Intra-op, Routine Given 10/13/2021 12:30 PM EST 4 mg PHENYLephrine in NS (PF) (ML-SYNEPHRINE) 0.8 mg/10 mL (80 mcg/mL) multi-dose injection Syrg Intravenous, PRN, Starting on Sat10/13/21 at 1219, Until Sat10/13/21 at 1301, Anesthesia Intra-op, Routine Given 10/13/2021 12:41 PM EST 80 mcg Given 10/13/2021 12:33 PM EST 80 mcg Given 10/13/2021 12:29 PM EST 80 mcg propofoL (Diprivan) (10 mg/mL) infusion Intravenous, CONTINUOUS PRN, Starting on Sat10/13/21 at 1218, Until Sat10/13/21 at 1301, Anesthesia Intra-op, Routine New Bag 10/13/2021 12:18 PM EST 50 mcg/kg/min 29.25 mL/hr propofoL (Diprivan) 10 mg/mL bolus injection (Anesthesia) Intravenous, PRN, Starting on Sat10/13/21 at 1209, Until Sat10/13/21 at 1301, Anesthesia Intra-op Given 10/13/2021 12:09 PM EST 200 mg documented in this encounter Care Teams Industry Consultant Relationship Specialty Start Date End Date David Massey MD [address] [place] [id number] PCP - General Emergency Medicine 03/31/21 documented as of this encounter
--- OUTSIDE RECORDS SUMMARY | 2024-04-27 14:53 | XMS_ITS | Encounter Summary ---
Author Organization [facility] [place] [address] Care Team Providers Care Paint Mixer Machine Name Role Phone Dominic Restrepo MD Primary Care Provider [phone] Reason for Referral * Physical Therapy (Routine) - Specialty Diagnoses / Procedures Referred By Sonal dawson Referred To Contact Diagnoses Status post bilateral knee replacements Marva Pedraza PA [facility] DR [place] [address] Referral ID Status Reason Start Date Expiration Date V isits Requested Visits Authorized [id number] Evaluate and Treat Non PCP 03/25/2019 09/21/2019 1 1 Reason for Visit * Reason Comments Right Knee Pain has bilat TKA DOS - increased pain * Consultation (Routine) - Closed Specialty Diagnoses / Procedures Referred By Sonal dawson Referred To Contact Orthopaedics Diagnoses RIGHT KNEE PAIN Self mail [facility] [address] [place] [address] Referral ID Status Reason Start Date Expiration Date V isits Requested Visits Authorized [id number] Closed Consult, Test & Treat 03/24/2019 03/23/2020 1 1 Encounter Details Date Type Department Care Team ([facility] st Contact Info) Description 03/25/2019 4:30 PM EDT Office [place] [address] Amish Han MD [facility] [place] [address] Status post bilateral knee replacements Social History Tobacco Use Types Packs/Day Years [...] Sign Reading Time Taken Comments Blood Pressure 145/81 03/25/2019 3:51 PM EDT Pulse 106 03/25/2019 3:51 PM EDT Temperature - - Respiratory Rate - - Oxygen Saturation - - Inhaled Oxygen Concentration - - Weight 104.4 kg (230 lb 3.2 oz) 03/25/2019 3:51 PM EDT measured Height 175.3 cm (5' 9) 03/25/2019 3:51 PM EDT m easured Body Mass Index 33.99 03/25/2019 3:51 PM EDT documented in this encounter Progress Notes * Marva Pedraza PA - 03/25/2019 4:30 PM EDT Arthroplasty/Orthopaedic History: Bilateral TKA 12/17/12 (Msyor) HPI: Eugene Rueda is a very pleasant 68 y.o. year-old male and is now several years post bilateral total knee replacement The patient has been doing having right knee pain. Denies any trauma. Hedescribes the pain is global. Has not used anything for pain. He reports a high tolerance to pain. No fevers, chills, nausea, vomiting, or symptoms of infection. Eugene has been ambulating with no assistive device . He is not taking narcotic pain medicine. Anticoagulation status Warfarin (goal INR ~2) for chronically. ROS: Denies: fever, chills, night sweats, nausea, or vomiting BP 145/81 (BP Location (NBP): Right arm, Patient Position: Sitting, BP Cuff Sizes: Large Adult (32-43 cm)) Pulse (!) 106 Ht 175.3 cm (5' 9) Comment: measured Wt 104.4 kg (230 lb 3.2 oz) Comment: measured BMI 33.99 kg/m?? Physical Exam: Well-appearing male in no acute distress. Alert and Oriented x 3 and answers all questions appropriately. The incision is well healed, with no signs of infection. I have made the following determinations: Post Op Right Knee Exam: Knee ROM: Extension:0 Flexion: 130 Alignment: 0-4 degrees Neutral Stability: A/P Translation <5mm. Varus <5mm Valgus <5mm Extension La degrees or less Patella Tracking: Normal Pulses Palpable: Right PT: decreased Right DP:decreased Motor/Sensory: Distal Motor: Normal Distal Sensory: Normal Quadriceps Strength: 3 Post Op Left Knee Exam: Knee ROM: Extension:0 Flexion: 130 Alignment: 0-4 degrees Neutral Stability: A/P Translation <5mm Varus <5mm Valgus <5mm Extension La degrees or less Patella Tracking: Normal Pulses Palpable: Left PT: decreased Left DP:decreased Motor/Sensory: Distal Motor: Normal Distal Sensory: Normal Quadriceps Strength:3 X-RAYS: Multiple radiographic views were obtained at my request and reviewed with the patient. X-rays show a well-placed prosthesis with no evidence of fracture, subsidence, loosening, or periprosthetic complication. Questionnaire Responses: [facility] Surgical Postop Visit 03/25/2019 PROMIS-10 General Health Good PROMIS-10 Quality of Life Good PROMIS-10 Physical Health Good PROMIS-10 Mental Health Good PROMIS-10 Social Activity Good PROMIS-10 Everyday Activities Mostly PROMIS-10 Pain 4 PROMIS-10 Fatigue Moderate PROMIS-10 Social Roles Good PROMIS-10 Anxious or Depressed Sometimes PROMIS PHYSICAL HEALTH SCORE 42.3 PROMIS MENTAL HEALTH SCORE 43.5 KOOS JR Scores 52.47 Gone to ER since knee surgery - Admitted to hospital since recent ortho surgery - Additional surgery on same body part - TKA Grade 3 Satisfaction with Treatment - Choose Same Treatment Again - [facility] Response 03/25/2019 KOOS JR Scores 52.47 [facility] Response 03/25/2019 KOOS JR Scores 52.47 ASSESSMENT/PLAN: Mr. Rueda is a 68 y.o. year old male status post bilateral total knee replacement. Doing well postoperatively. Experincing some global right knee pain though on clinical exam does not seem lax. We discussed that the XR images are reassuring. We would suggest working on PT to strengthen quads. I have given carmina PT referral as well as give him exercises. Continue weightbearing as tolerated and working on range of motion. If Eugene has any changes in health status we recommend he contact our office prior to dental procedures for updated recommendations All questions were answered. Signed: KAY Garcia 03/25/2019 documented in this encounter Plan of Treatment Upcoming Encounters Date Type Department Care Team (Late st Contact Info) Description 05/15/2024 10:00 AM EDT [place] [address] Catrachito Mehta MD [facility] [place] [address] Scheduled Referrals Name Type Priority Associated Diagnoses Orde r Schedule Referral to Physical Therapy Outpatient Referral Routine Status post bilateral knee replacements Ordered: 03/25/2019 documented as of this encounter Visit Diagnoses Diagnosis Status post bilateral knee replacements documented in this encounter Care Teams Paint Mixer Machine Relationship Specialty Start Date End Date Dominic Restrepo MD [address] [place] [address] PCP - General Family Medicine 04/22/17 03/30/21 documented as of this encounter
--- OUTSIDE RECORDS SUMMARY | 2024-04-27 14:53 | XMS_ITS | Encounter Summary ---
[place] [address] Care Team Providers Care Set Up And Lay Out Inspector Name Role Phone David Massey MD Primary Care Provider [phone] Reason for Visit * Consultation (Routine) - Closed Specialty Diagnoses / Procedures Referred By Sonal dawson Referred To Contact Vascular Surgery Diagnoses Chronic venous insufficiency David Massey MD [address] [place] [address] [facility] [place], [place] Vascular Surg [address] [place] [address] Referral ID Status Reason Start Date Expiration Date V isits Requested Visits Authorized [id number] Closed Consult, Test & Treat PCP Updated and/or Approved 12/05/2021 12/05/2022 12 12 Encounter Details Date Type Department Care Team ([facility] st Contact Info) Description 01/10/2022 1:00 PM EDT Office Visit [place] [address] Wally López III, MD [address] [place] [address] [place] [address] Venous insufficiency of both lower extremities; Venous stasis ulcer of calf limited to breakdown of skin with varicose veins, unspecified laterality Social History Tobacco Use Types Packs/Day Years [...] Sign Reading Time Taken Comments Blood Pressure 134/61 01/10/2022 12:59 PM EDT Pulse 83 01/10/2022 12:59 PM EDT Temperature - - Respiratory Rate - - Oxygen Saturation - - Inhaled Oxygen Concentration - - Weight 99.8 kg (220 lb) 01/10/2022 12:59 PM EDT reported Height 175.3 cm (5' 9) 01/10/2022 12:59 PM EDT reported Body Mass Index 32.49 01/10/2022 12:59 PM EDT documented in this encounter Progress Notes * Wally López III, MD - 01/10/2022 1:00 PM EDT Images from the original note were not included. OUTPATIENT VASCULAR SURGERY CONSULTATION Reason for Visit: Bilateral lower extremity venous stasis, venous ulcerations, venous incompetence. History of Present Illness: Eugene Rueda is a 71 y.o. Male seen in consultation at the request of Dr. David Massey regarding bilateral lower extremity stasis dermatitis and ulcers. Bilateral lower extremity venous duplex with incompetence evaluation was performed today and is reviewed below, along with prior imaging studies. Mr. Rueda has had skin changes of the lower leg bilaterally for some time, and describes worsening and burning quality pain right more than left leg for at least months or longer. He has open ulcerations of the lower leg, left more than right, and describes developing serous blisters in the areas of abnormal skin that then ulcerate. He has had Unna boot applications through Dr. Massey's office he reports. He does recall having had Unna boots quite a while ago as well, is not very specific in terms of the time course of skin changes and ulcers. He denies having required hospitalization or high fevers, or recent antibiotic therapy. He has not had dermatology evaluation. He denies lower extremity surgery or trauma, apart from a fracture of the right ankle years ago. He denies foot pain or foot ulcers. He denies significant sensory decrease/peripheral neuropathy. He walks reasonably well, uses a cane but denies recent falls and states his balance is reasonable. He denies claudication symptoms. He is able to walk upstairs, has 14 steps into his apartment. He denies significant chest pain or dyspnea. He denies abdominal pain. He has chronic fibrillation,thus has been on Eliquis anticoagulation for a number of years. He denies bleeding events. Echocardiogram at [facility] [place] was technically difficult, but showed normal LV function, EF 60%, mild mitral and tricuspid regurgitation. He has a history of asbestosis but denies significant or severe dyspnea. He had a gastric bypass in 2013. He has a history of sleep apnea. He has a history of bilateral total knee replacements, a number of years ago, has not had difficulties with those since. He is diabetic, reports his control is up and down. I do not have a recent A1c. He has never smoked. Patient Active Problem List Diagnosis Code ??? Hip arthritis M16.10 ??? S/P knee replacement Z96.659 ??? HTN (hypertension) I10 ??? Atrial fibrillation I48.91 ??? PVD (peripheral vascular disease) I73.9 ??? DM (diabetes mellitus) E11.9 ??? CARLOS A (obstructive sleep apnea) G47.33 ??? Type 2 diabetes mellitus E11.9 ??? GERD (gastroesophageal reflux disease) K21.9 ??? Varicose veins I83.90 ??? Carpal tunnel syndrome G56.00 ??? Asbestosis(501) J61 ??? Pterygium H11.009 ??? Fatigue R53.83 ??? Depression F32.A ??? Decreased hearing, wears hearing aid right ear H91.90 ??? Hyperlipidemia E78.5 ??? Chronic anticoagulation Z79.01 ??? History of renal stone ~1980s Z87.442 ??? Preoperative Class II obesity, S/P gastric bypass February 2014 E66.9 ??? Venous insufficiency of both lower extremities I87.2 ??? Venous stasis ulcer I83.009, L97.909 Current Outpatient Medications: ??? apixaban (Eliquis) 5 mg Tablet, Take by mouth., Disp: , Rfl: ??? OneTouch Ultra Test Strip, USE 1 STRIP TO CHECK GLUCOSE FOUR TIMES DAILY DIRECTED, Disp: , Rfl: ??? OneTouch Ultra2 Meter [facility], USE DIRECTED FOUR TIMES A DAY, Disp: , Rfl: ??? dapagliflozin (Farxiga) 10 mg Tablet, Take by mouth., Disp: , Rfl: ??? Lantus Solostar U-100 Insulin pen, ADMINISTER 10 UNITS UNDER THE SKIN AT BEDTIME, Disp: , Rfl: ??? metoprolol succinate XL (Toprol-XL) 100 mg Tablet Sustained Release 24 hr, Take by mouth., Disp: , Rfl: ??? Rybelsus 7 mg Tablet, , Disp: , Rfl: ??? metFORMIN (GLUCOPHAGE) 1,000 mg Tablet, , Disp: , Rfl: 0 ??? RESTASIS 0.05 % Dropperette, instill 1 drop into both eyes twice a day as directed, Disp: , Rfl: 0 ??? JARDIANCE 10 mg Tablet, , Disp: , Rfl: 0 ??? lisinopril (PRINIVIL;ZESTRIL) 5 mg Tablet, take 1 tablet by mouth once daily, Disp: , Rfl: 0 ??? CALCIUM CITRATE/VITAMIN D2 (CALCIUM CITRATE WITH D ORAL), Take 2 tablets by mouth 2 times daily., Disp: , Rfl: ??? DILTiazem (DILACOR XR) 240 mg 24 hr capsule, Take 1 capsule by mouth daily. Take the short acting Diltiazem four times daily until you can swallow pills. Once you can swallow pills, you can startretaking this long acting Diltiazem., Disp: , Rfl: ? ? MULTIVIT &MINERALS/FERROUS FUM (MULTI VITAMIN ORAL), Take 1 tablet by mouth 2 times daily.,Disp: , Rfl: ??? terazosin (HYTRIN) 2 mg capsule, Take 2 mg by mouth nightly., Disp: , Rfl: ??? lovastatin (MEVACOR) 20 mg tablet, , Disp: , Rfl: No Known Allergies Review of Systems: Constitutional (weight change, fever) - see HPI--status post gastric bypass 2013 Neuro (dizziness, seizures, numbness, tingling) - Denies Eyes (vision) - Denies Ears, nose, throat (hearing) - Denies Cardiovascular (CP) - see HPI Respiratory (SOB) - Denies GI (abd pain, nausea, emesis, blood in stool) - Denies (hematuria, dysuria, frequency) - Denies Muscoloskeletal (extremity pain, weakness) - see HPI Skin (ulcers, rashes) - see HPI Functional Status/Social Hx: , never smoked. Family Hx: No varicose veins or ulcers, no DVT. Family History Problem Relation Age of Onset ??? Breast Cancer Sister Physical Exam: Vitals Flowsheet Row Office Visit from 01/10/2022 in Vascular Surgery at [facility] Weight 99.8 kg (220 lb) [reported] Height 175.3 cm (5' 9) [reported] BSA (Calculated - sq m) 2.2 sq meters BMI (Calculated) 32.48 Heart Rate 83 BP 134/61 Patient Position Sitting General - NAD, pleasant, seen alone Neuro - Alert and Oriented, Motor Sensory grossly intact in both lower extremities Skin -see lower extremity examination below No carotid bruits Cardiac - RRR, no murmurs Lungs - Clear, equal Abd - Soft, NT, ND, No palpable pulsatile masses Extremities - Right lower extremity: There are circumferential skin changes of the distal two thirds of the lower leg, much of the skin is pink and atrophic, other areas are more brown. There are several focal epidermal blisters that are serous of the anterior lower leg, and some small ulcerations in these areas of abnormal skin. I find several varicose veins proximal to this area of skin change. The foot is warm and pulses are palpable, I also confirmed with brisk Doppler signals. Left lower extremity: There are circumferential skin changes of the distal two thirds of the lower leg, much of the skin is pink and atrophic, other areas are more brown. There is an ulceration with adherent eschar of theanterior lower leg, several centimeter in length and perhaps 2 cm width or less. There is no obvious cellulitis. There is minimal serous drainage. I find several varicose veins proximal to this area of skin change. The foot is warm and pulses are palpable, I also confirmed with brisk Doppler signals. Vascular Exam: R L Carotid 2/2 bruit (-) 2/2 bruit (-) Radial 2/2 2/2 Femoral 2/2 2/2 Popliteal DP 2/2 2/2 PT 2/2 2/2 Labs: 2017: BUN 23, creatinine 1.0, hemoglobin 13. Studies: CT scan of the abdomen and pelvis without contrast May 2021, my review of images: There is calcification of the abdominal aorta particularly infrarenal, no AAA. There is mid SMA bulky calcified plaque, no origin distal row calcification. There is no significant/bulky calcificationthroughout the iliac arteries, there is some posterior calcification of the common femoral arteriesbut not significantly stenotic based on calcification alone. There are 2 retroaortic left renal veins, these do not appear compressed. The IVC and iliac veins appear normal without left common iliac venous compression. There are no pelvic varicosities. I do not think there is significant retroperitoneal adenopathy. Right great saphenous vein proximally measures 7 mm, anterior saphenous vein measures 4 mm. Left great saphenous vein measures 8 mm proximally, there is a very small anterior saphenous branch. Bilateral lower extremity venous duplex 01/10/2022: Findings: Segment Right Reflux? Diameter (mm) Depth (mm) Common Femoral Vein Competent Femoral Vein Competent Popliteal Competent GSV, Near SFJ Competent 7.0 27.6 GSV, Proximal Thigh Reflux 5.0 20.3 GSV, Mid Thigh Reflux 4.0 17.6 GSV, Distal Thigh Reflux 3.4 16.4 GSV, Knee Reflux 2.7 19.4 GSV Prox Calf Competent 2.7 12.3 GSV, Mid Calf Competent GSV, Distal Calf Competent SSV Reflux Segment Left Reflux? Diameter (mm) Depth (mm) Common Femoral Vein Competent Femoral Vein Competent Popliteal Reflux GSV, Near SFJ Competent 7.4 32.0 GSV, Proximal Thigh Competent 4.5 13.9 GSV, Mid Thigh Competent 4.1 14.4 GSV, Distal Thigh Competent 4.0 14.6 GSV, Knee Reflux 3.2 23.4 GSV Prox Calf Reflux 2.6 12.5 GSV, Mid Calf Reflux GSV, Distal Calf Reflux SSV Competent Interpretation: RIGHT: Superficial venous valvular incompetence (reflux > 1 second) identified in the lesser saphenous vein in the very distal calf (only), and in the great saphenous vein (GSV) from the upper thigh to the knee. Small varicosities noted along the medial calf. No evidence of deep venous valvular incompetence. No evidence of deep (femoral-popliteal) or superficial venous thrombosis. LEFT: Superficial venous valvular incompetence (reflux > 1 second) identified in the GSV from the kneeto the distal calf. Small varicosities noted in the medial calf. Deep venous valvular incompetence (reflux > 1.5 seconds) identified in the popliteal vein only (mild). No evidence of deep (femoral-popliteal) or superficial venous thrombosis. Comparison: No previous study in our vascular lab database for comparison. Assessment and Plan: Eugene Rueda presents with extensive skin changes of the lower leg bilaterally, described above, that I do think are related to venous stasis dermatitis, but see discussion below. He has been in a boot applications currently, and active ulceration left more than right lower leg. He has not had prior lower extremity venous or arterial procedures. He has palpable pedal pulses and there is Doppler signals bilaterally, does not claudicate althoughambulation is mildly limited. I do not suspect arterial insufficiency as a barrier to healing. Bilateral lower extremity venous duplex was performed. On the right, there was no deep venous incompetence. The great saphenous vein is incompetent and enlarged up to centimeter diameter throughout the thigh. The short saphenous vein is incompetent, but only in the distal lower leg and is small. There are some varicose veins of the medial calf that are noted. On the left, there is popliteal incompetence in the deep veins, but not through the femoral vein thigh. The great saphenous vein is only incompetent below the knee, and small/nonsignificant. There is no short saphenous incompetence on the left. I discussed these findings with him at length. Although we demonstrate only isolated areas of deep and superficial venous incompetence on the left, given the similarity in appearance to the right, I do think this is venous in origin. I discussed the possibility of treating the right great saphenousvein incompetence, as potentially beneficial in terms of obtaining and particularly maintaining ulcer healing. The individual benefit of great saphenous vein treatment on the right is uncertain, but given that is the only site of venous insufficiency in the right leg, may be quite beneficial. On the left, however, there are no current venous procedures that are likely to improve his situation there. That certainly may exchange consultant time and I will periodically reevaluate the left side, particularly if ulcers are recalcitrant. I do recommend Unna boot and various forms of compression therapy. He is not certain that compression stockings are beneficial. I did discuss the option of CircAid or equivalent Velcro type wraps, and I prescribed knee-high devices for both legs today as an option for adjustable compression, to be used once he is out of Unna boots or other wound care. I discussed radiofrequency ablation or open stripping of the right great saphenous vein. Regarding ablation of the great saphenous vein, I reviewed the risks of failure to ablate (2%), DVT (1-2 %), skin burn, nerve injury, and bleeding. Regarding open stripping, I reviewed the risks of bleeding, infection, wound problems, hematoma, nerve injury, and DVT. Vein recurrence or progression of venous disease are possible. After discussion, he does agree to proceed with right great saphenous vein radiofrequency ablation.I will arrange to perform this in the operating room either at [facility] or [facility], where we perform many of our venous procedures. Great saphenous ablation can be done with either moderate to deep sedation or general anesthesia, at his and the anesthesia team's preference. I donote his history of sleep apnea. This is an outpatient procedure and is considered very low risk. Idiscussed the typical recovery, which generally is no more than days although a few patients do have significant pain in the thigh following this procedure. Thank you for the opportunity to participate in the care of this pleasant gentleman. Please contactwith any questions and I will keep you informed of his periprocedural progress. documented in this encounter Plan of Treatment Upcoming Encounters Date Type Department Care Team (Late st Contact Info) Description 05/15/2024 10:00 AM EDT [place] [address] Catrachito Mehta MD [facility] [place] [address] documented as of this encounter Visit Diagnoses Diagnosis Venous insufficiency of both lower extremities Venous stasis ulcer of calf limited to breakdown of skin with varicose veins, unspecified laterality documented in this encounter Care Teams Set Up And Lay Out Inspector Relationship Specialty Start Date End Date David Massey MD [address] [place] [address] PCP - General Emergency Medicine 03/31/21 documented as of this encounter
--- OUTSIDE RECORDS SUMMARY | 2024-04-27 14:53 | XMS_ITS | Encounter Summary ---
Author Organization [facility] [place] [address] Care Team Providers Care Color Paste Mixing Supervisor Name Role Phone David Massey MD Primary Care Provider [phone] Reason for Referral * Diagnostic Test (Routine) - Closed Specialty Diagnoses / Procedures Referred By Sonal dawson Referred To Contact Diagnoses Leg edema Procedures Venous Valvular Incomp, Bilat Legs Yanira Ha APRN [facility] [place] [address] [facility] [address] [place] [id number] Referral ID Status Reason Start Date Expiration Date V isits Requested Visits Authorized [id number] Closed Specialty Service Requested 12/05/2021 12/05/2022 1 1 Encounter Details Date Type Department Care Team (Late st Contact Info) Description 12/05/2021 Orders [place] [address] Yanira Ha APRN [facility] [place] [address] Leg edema Social History Tobacco Use Types [...] 10:00 AM EDT [place] [address] Catrachito Mehta MD [facility] [place] [address] documented as of this encounter Results * Venous Valvular Incomp, Bilat Legs (01/10/2022 9:36 AM EDT) VB Text Report Department: Vascular Surgery Lab Patient: [id number] (EUGENE PURVIS) CPT: 51907 Referring Physician: YANIRA HA, MIGUEL ?? Indications: ??Bilateral lower extremity edema, lower leg skin changes, ? venous insufficiency Patient Positioning: ??Reverse Trendelenburg Findings: Right ?Reflux?Diameter (mm) ??Depth (mm) ?? Common Femoral Vein ??Competent ? Femoral Vein ? Competent ? Popliteal ?Competent ? GSV, Near SFJ ?Competent ?7.0 ?27.6 ?? GSV, Proximal Thigh ??Reflux ? 5.0 ?20.3 ?? GSV, Mid Thigh ? Reflux ? 4.0 ?17.6 ?? GSV, Distal Thigh ?Reflux ? 3.4 ?16.4 ?? GSV, ??Knee ? Reflux ? 2.7 ?19.4 ?? GSV Prox Calf ?Competent ?2.7 ?12.3 ?? GSV, Mid Calf ?Competent ? GSV, Distal Calf ? Competent ? SSV ?Reflux ? Left ? Reflux?Diameter (mm) ??Depth (mm) ?? Common Femoral Vein ??Competent ? Femoral Vein ? Competent ? Popliteal ?Reflux ? GSV, Near SFJ ?Competent ?7.4 ?32.0 ?? GSV, Proximal Thigh ??Competent ?4.5 ?13.9 ?? GSV, Mid Thigh ? Competent ?4.1 ?14.4 ?? GSV, Distal Thigh ?Competent ?4.0 ?14.6 ?? GSV, ??Knee ? Reflux ? 3.2 ?23.4 ?? GSV Prox Calf ?Reflux ? 2.6 ?12.5 ?? GSV, Mid Calf ?Reflux ? GSV, Distal Calf ? Reflux ? SSV ?Competent ? Interpretation: RIGHT: Superficial venous valvular incompetence (reflux > 1 second) identified in the lesser saphenous vein in the very distal calf (only), and in the great saphenous vein (GSV) from the upper thigh to the knee. Small varicosities noted along the medial calf. No evidence of deep venous valvular incompetence. No evidence of deep (femoral-poplitea l) or superficial venous thrombosis. LEFT: Superficial venous valvular incompetence (reflux > 1 second) identified in the GSV from the knee to the distal calf. Small varicosities noted in the medial calf. Deep venous valvular incompetence (reflux > 1.5 seconds) identified in the popliteal vein only (mild). No evidence of deep (femoral-poplitea l) or superficial venous thrombosis. Comparison: ??No previous study in our vascular lab database for comparison. Electronically Signed by: MISTY SAM III, MD on 2022-01-10 12:34:36 PM [facility] VB Text Report End of Report [facility] 01/10/2022 9:36 AM EDT Yanira Ha [employer] OPERATOR VASCULAR ORDERABLE S [facility] documented in this encounter Visit Diagnoses Diagnosis Leg edema Edema documented in this encounter Care Teams Color Paste Mixing Supervisor Relationship Specialty Start Date End Date David Massey MD [address] [place] [address] PCP - General Emergency Medicine 03/31/21 documented as of this encounter
--- OUTSIDE RECORDS SUMMARY | 2024-04-27 14:53 | XMS_ITS | Encounter Summary ---
Author Organization [facility] [place] [address] Care Team Providers Care Celluloid Trimmer Name Role Phone David Massey MD Primary Care Provider [phone] Encounter Details Date Type Department Care Team ([facility] Contact Info) Description 03/08/2022 [place] [address] Paulette Pickard MD [facility] [place] [address] Social History Tobacco Use Types Packs/Day Years [...] encounter Miscellaneous Notes * Telephone Encounter - Paulette Pickard MD - 03/08/2022 8:53 AM EDT Called patient to request urine sample drop. Pt will submit to [facility] today documented in this encounter Plan of Treatment Upcoming Encounters Date Type Department Care Team ([facility] Contact Info) Description 05/15/2024 10:00 AM EDT [place] [address] Catrachito Mehta MD [facility] [place] [address] documented as of this encounter Visit Diagnoses Diagnosis Lower urinary tract symptoms (LUTS) Other symptoms involving urinary system documented in this encounter Care Teams Celluloid Trimmer Relationship Specialty Start Date End Date David Massey MD [address] [place] [id number] PCP - General Emergency Medicine 03/31/21 documented as of this encounter
--- OUTSIDE RECORDS SUMMARY | 2024-04-27 14:53 | XMS_ITS | Encounter Summary ---
Author Organization [facility] [place] [address] Care Team Providers Care Cathead Operator Name Role Phone David Massey MD Primary Care Provider [phone] Encounter Details Date Type Department Care Team (Late Contact Info) Description 06/01/2021 Ancillary Procedure [place] [phone] David Massey MD [address] [place], [place] [id number] Social History Tobacco Use Types Packs/Day Years [...] 10:00 AM EDT [place] [phone] Catrachito Mehta MD [facility] [place] [address] documented as of this encounter Procedures Procedure Name Priority Date/Time Associated Diagnosis Comments FILM LIBRARY STORAGE ONLY CT ABDOMEN AND PELVIS Routine 06/01/2021 12:00 AM EDT documented in this encounter Results * Film Library- Storage Only CT Abdomen & Pelvis (06/01/2021 12:00 AM EDT) Narrative EMA - 06/30/2021 1:47 PM EDT This exam is auto-finalizing. It's purpose is for storage only. David Massey MD IMG FILM LIBRARY ORD ERABLES Performing Organization Address City/State/[facility] Co de Phone Number [place], [place] documented in this encounter Visit Diagnoses Not on filedocumented in this encounter Care Teams Cathead Operator Relationship Specialty Start Date End Date David Massey MD [address] [place] [address] PCP - General Emergency Medicine 03/31/21 documented as of this encounter
--- OUTSIDE RECORDS SUMMARY | 2024-04-27 14:53 | XMS_ITS | Encounter Summary ---
Author Organization [facility] Address [facility] [place] [address] Care Team Providers Care Assistant Professor Of Education Name Role Phone David Massey MD Primary Care Provider [phone] Reason for Visit * Auth/Cert Specialty Diagnoses [...] Expiration Date Visits Re quested Visits Authorized [id number] 1 1 Encounter Details Date Type Department Care Team (Latest Contact Info) Description 10/13/2021 11:05 AM EST - 10/13/2021 1:40 PM [facility] Hospital Encounter [place] [address] Romario Womack Jr., MD [facility] [place] [address] History of renal stone ~1980s Discharge Disposition: Home Social History Tobacco Use [...] Sign Reading Time Taken Comments Blood Pressure 119/84 10/13/2021 1:29 PM EST Pulse 88 10/13/2021 1:29 PM EST Temperature 36.9 ??C (98.4 ??F) 10/13/2021 12:[address] Respiratory Rate 17 10/13/2021 1:29 PM EST Oxygen Saturation 98% 10/13/2021 1:29 PM EST Inhaled Oxygen Concentration - - [...] closest emergency room or call the hospital power switchboard operator at [phone] and ask for physician guest relations receptionist covering for your physician. Questions or problems after 5pm or on a weekend: Call the [facility] power switchboard operator at and ask for the physician guest relations receptionist covering for your doctor. At 11:30 am [...] pain medications The number for questions is [phone] before 5 PM weekdays and [phone] after 5 PM and weekends. Activity level: [...] stone in 2-3 weeks time. Please call [phone] if you do not hear from the [...] Latest Ref Range: Clear Turbid (A) Spec [place] UA Latest Ref Range: 1.005 - 1.030 [...] Latest Ref Range: <=4 /HPF 3 Yeast Garrison UA Latest Ref Range: None /HPF Few (A) Culture Reflexed Unknown Yes Anticoagulation: Yes Past Medical History: Diagnosis Date ??? Blood disorder ??? Circulatory disease ??? Diabetes Past Surgical History: Procedure Laterality Date ??? CHOLECYSTECTOMY ??? PRO EXCISE EXCESS SKIN TISSUE, ABDOMEN N/A 05/17/2016 ABDOMINOPLASTY performed by Adis Membreno MD at [facility] MAIN OR ??? PRO LAP GASTRIC BYPASS/KEYSHA-EN-Y 02/08/2014 @LAPAROSCOPIC GASTROPLASTY, performed by Wally Pfeiffer MD at [facility] OR ??? PRO LAP, DIAGNOSTIC ABDOMEN 02/10/2014 LAPAROSCOPY, DIAGNOSTIC, ABDOMEN performed by Wally Pfeiffer MD at [facility] OR ??? PRO REPAIR INCISIONAL HERNIA, REDUCIBLE N/A 05/17/2016 REPAIR INITIAL INCISIONAL OR VENTRAL HERNIA REDUCIBLE [facility] ??? PRO UNLISTED LAPAROSCOPIC PROCEDURE ESOPHAGUS 02/08/2014 LAPAROSCOPIC REVISION OF DELROY FUNDOPLASTY performed by Wally Pfeiffer MD at [facility] OR ??? PRO UPPER GI ENDOSCOPY, BIOPSY 12/11/2013 UPPER GASTROINTESTINAL ENDOSCOPY,WITH BIOPSY SINGLE OR MULTIPLE performed by Wally Pfeiffer MDat [facility] ENDOSCOPY ??? PRO UPPER GI ENDOSCOPY, DIAGNOSTIC 12/25/2013 EGD, UPPER GI ENDOSCOPY performed by Wally Pfeiffer MD at [facility] ENDOSCOPY ??? PRO UPPER GI ENDOSCOPY, DIAGNOSTIC 02/08/2014 ENDOSCOPY, UPPER GI, DIAGNOSTIC, WITH OR WITHOUT SPECIMENS performed by Wally Pfeiffer MD at [facility] OR ??? TONSILLECTOMY ??? TOTAL KNEE [...] Operative Note Patient Name: Eugene Purvis : [id number] MR#: [id number] Case Date: 10/13/2021 Surgeon: Surgeon(s) and Role: [...] Operative Note Patient Name: Eugene Purvis : [id number] MR#: [id number] Case Date: 10/13/2021 Surgeon: Surgeon(s) and Role: [...] 10:00 AM EDT [place] [address] Catrachito Mehta MD [facility] [place] [address] documented as of this encounter Procedures Procedure Name Priority Date/Time Associated Diagnosis Comments XR FLUORO NO RAD <1HR - OR USE Routine 10/13/2021 1:23 PM EST HC URINE CULTURE Routine 10/13/2021 12:4 5 PM EST HC URINE CULTURE Routine 10/13/2021 12:4 4 PM EST Cystourethroscopy, Ureter Catheter ([id number]) 10/13/2021 12:04 PM EST stone Cystoscopy, Insert Ureteral Stent ([id number]) 10/13/2021 12:04 PM EST stone URINALYSIS MICROSCOPIC [...] Greater than 50,000 cfu/mL Roxy glabrata (A) [facility] Gram Stain Many Neutrophils seen Moderate Yeast seen (A) [facility] Organism Roxy albicans(A) [facility] Organism Roxy glabrata(A) [facility] Organism Yeast(A) [facility] Cystoscopic Urine 10/13/2021 12:45 PM EST 10/13/2021 2:02 PM EST Comment:Left renal urine for culture and gram stain Narrative Resulting Agency Comment Spec In Lab Romario Womack Jr., MD MICROBIOLOGY - GEN [place] [address] * (ABNORMAL) Urine culture Cystoscopic Urine (10/13/2021 12:44 PM EST) Urine Culture Greater than 50,000 cfu/mL Roxy glabrata 1,000-9,000 cfu/ml Roxy albicans (A) [facility] Organism Roxy glabrata(A) [facility] Organism Roxy albicans(A) [facility] Cystoscopic Urine 10/13/2021 12:44 PM EST 10/13/2021 2:01 PM EST Comment:Cystoscopic bladder urine for culture Narrative Resulting Agency Comment Spec In Lab Romario Womack Jr., MD MICROBIOLOGY - GEN ERAL ORDERABLES Performing Organization Address [facility] [place] [address] * (ABNORMAL) Urine culture (10/13/2021 11:04 AM EST) Urine Culture 10,000-49,00 0 cfu/ml Roxy glabrata 1,000-9,000 cfu/ml Roxy albicans 1,000-9,000 cfu/ml mixed mucosal red (A) [facility] Organism Roxy glabrata(A) [facility] Organism Roxy albicans(A) [facility] Clean Catch Urine 10/13/2021 11:04 AM EST 10/13/2021 2:26 PM EST Narrative Resulting Agency Comment Spec In Lab Jose C Skaggs MD MICROBIOLOGY - GENERAL ORDERABLES [facility] [place] [address] * (ABNORMAL) Urinalysis Microscopic Exam (10/13/2021 11:04 AM EST) RBC UA 15(H) 0 - 3 /HPF [facility] WBC UA >100(H) 0 - 3 /HPF [facility] Bacteria UA Rare(A) None /HPF [facility] Yeast Garrison UA Few(A) None /HPF [facility] Squam Epith UA 3 <=4 /HPF [facility] Hyaline Cast UA 2 0 - 2 /LPF [facility] Clean Catch Urine 10/13/2021 11:04 AM EST 10/13/2021 11:15 AM EST Narrative Resulting Agency Comment Spec In Lab Jose C Skaggs MD URINE ORDERAB LES Performing Organization Address City/State/[facility] Co de Phone Number [facility] [address] * (ABNORMAL) Urinalysis with reflex Culture (10/13/2021 11:04 AM EST) Glucose UA 100(A) Negative mg/dL [facility] Protein UA 30(A) Negative mg/dL [facility] Bilirubin UA Negative Negative mg/dL [facility] Comment: Clinical correlation required for positive Urine Bilirubin results as false positive may occur with some drugs and drug related products. If a false positive is suspected a serum total bilirubin should be considered if clinically indicated. Urobilinogen UA Normal Normal mg/dL [facility] pH UA 5.0 5.0 - 8.0 [facility] Blood UA Small(A) Negative mg/dL [facility] Ketones UA Negative Negative mg/dL [facility] Nitrite UA Negative Negative [facility] Leukocytes UA Large(A) Negative mcL [facility] Appearance UA Turbid(A) Clear [facility] Spec [place] UA 1.013 1.005 - 1.030 [facility] Color UA Yellow Yellow [facility] Culture Reflexed Yes [facility] Clean Catch Urine 10/13/2021 11:04 AM EST 10/13/2021 11:15 AM EST Narrative Resulting Agency Comment Spec In Lab Romario Womack Jr., MD URINE ORDERABLES [facility] [address] * POCT Fingerstick Glucose (10/13/2021) POC Glucose 124 60 - 199 mg/dl Comment:RN notified 10/13/2021 Romario Womack Jr., MD POINT OF CARE TEST ORDERABLES documented in this encounter Visit Diagnoses Diagnosis History of renal stone ~1980s Personal history of urinary calculi documented in this encounter Administered Medications Inactive Administered Medications - up to 3 most recent administrations Medication Order MAR Action Action Date Dose Rate Site acetaminophen (Tylenol) tablet 1,000 mg 1,000 mg, Oral, ONCE, 1 dose, On Sat10/13/21 at 1130, Administer with SIP of H2O only., Day of Surgery (Day of Procedure), Routine Given 10/13/2021 11:30 AM EST 1,000 mg lactated ringers infusion 1,000 mL, at [...] 100 mL infusion (COMPLETED) 2 g, Intravenous, [employer] TO O.R., 1 dose, On Sat10/13/21 at 0645, Administer over 30 Minutes, Indication for (Active or Suspected): Prophylaxis 1221 (Given - Provid er: Nereyda Pina, SHASTA) metoprolol tartrate (Lopressor) tablet 50 mg (COMPLETED) [...] Routine documented in this encounter Care Teams Assistant Professor Of Education Relationship Specialty Start Date End Date David Massey MD [address] [place] [address] PCP - General Emergency Medicine 03/31/21 documented as of this encounter
--- OUTSIDE RECORDS SUMMARY | 2024-04-27 14:53 | XMS_ITS | Encounter Summary ---
Author Organization [facility] [place] [address] Care Team Providers Care Skoog Operator Name Role Phone David Massey MD Primary Care Provider Reason for Visit * Auth/Cert Specialty Diagnoses / Procedures Referred By Sonal dawson Referred To Contact Diagnoses Left renal stone LEFT STONE Procedures PRO CYSTO/URETERO/PYELOSCOPY W/LITHOTRIPSY CYSTOURETEROSCOPY, LITHOTRIPSY (WRVU 7.5) MODIFIER HOLMIUM LASER Referral ID Status Reason Start Date Expiration Date Visits Re quested Visits Authorized [id number] 1 1 Encounter Details Date Type Department Care Team (Latest Contact Info) Description 03/09/2022 11:40 AM EDT - 03/09/2022 3:40 PM EDT Hospital Encounter [place] [address] Celia Womack Jr., MD [facility] [place] [address] Nephrolithiasis Discharge Disposition: Home Social History Tobacco Use [...] Mass Index 31.31 03/09/2022 12:14 PM EDT documented in this encounter Discharge Instructions * Discharge Instructions* Kelsie Mccullough RN - 03/09/2022 12:27 PM EDT At 12:30 pm you received 1000 mg of acetaminophen- Your next dose should not be taken before 8 hours have passed. Next dose not before- 8:30 pm You should not take more than a total of 3000 mg of acetaminophen in a 24 hour period. General Anesthesia Discharge Instructions Go home and [...] closest emergency room or call the hospital monomer purification operator at [phone] and ask for physician salesperson men's furnishings covering for your physician. Questions or problems after 5pm or on a weekend: Call the [facility] monomer purification operator at and ask for the physician salesperson men's furnishings covering for your doctor. * Patient Instructions* Paulette Pickard MD - 03/08/2022 11:52 AM EDT Discharge Instructions after Cystoscopy Call your doctor for: Fevers greater than 101.3F Severe nausea or vomiting Increasing pain not controlled by pain medications Inability to urinate The number for questions is [phone] before 5 PM weekdays and [phone] after 5 PM and weekends if questions are urgent/emergent. Activity level: Your activity level will be determined by your comfort level. Diet: You may resume your regular diet as tolerated. Driving: No driving while still taking opioid pain medications (wait at least 6- 8 hours since last dose). No driving if you are still sore from surgery as it may limit your ability to react quickly if necessary. Shower/Bath: No restrictions. Discomfort: Most patients experience some degree of discomfort after surgery. Symptoms include frequency and urgency of urination, burning or pain in the bladder/urethra with urination, pelvic discomfort, and blood in the urine. Your symptoms may be exacerbated by intense activity. To manage your symptoms, try the following: - Drink plenty of fluid (~2 liters per day or enough to make urine clear or pale yellow) - Take acetaminophen (Tylenol), up to 650mg every 4 hours (regular strength) or 1000mg every 6 hours (extra strength) - Take ibuprofen (Motrin, Advil, or generic), up to 600-800mg every 8 hours Follow up Appointments: A follow-up appointment will be scheduled in about 3-4 months with a renal ultrasound before your appointment. Please call [phone] if you do not receive your appointment. No future appointments. documented in this encounter Medications at Time [...] tablet 04/24/2010 documented as of this encounter Progress Notes * Naty Stein RN - 03/09/2022 3:45 PM EDT Discharge instructions and medications reviewed with patient and escort. All questions answered andwritten copy sent home with patient. Pt in stable condition, PIV removed, all belongings returned. Patient ambulated to car for discharge accompanied by [facility] staff member. * Zina Thompson RN - 11/03/2021 3:31 PM EST .[facility] documented in this encounter H&P Notes * Celia Womack Jr., MD - 03/09/2022 1:34 PM EDT Urology H&P Eugene Rueda is a 71 y.o. male with a history of a.fib, COPD, DM, LEFT urolithiasis. He underwent left ureteral stent exchange on 10/13/21 given concern for active UTI with equivocal UA from that same day, showing negative nitrite, 15 RBC, >100 WBC, rare bacteria, few yeast bud, 3 SE. This sample ultimately reflexed to grow 10,000-49,000 cfu/ml Roxy glabrata, 1,000-9,000 cfu/ml Roxy albicans, 1,000-9,000 cfu/ml MMF. His cystoscopic bladder urine grew > 50,000 cfu/mL Roxy glabrata and 1,000- 9,000 cfu/ml Roxy albicans. His left renal urine grew > 50,000 cfu/mL Roxy albicans and >50,000 cfu/mL Roxy glabrata. He was treated with Diflucan 100mg bid x7 days and Keflex 500mg tid [id number]. He presents today for cystoscopy, left ureteroscopy with laser lithotripsy and left ureteral stent exchange. He reports he did have a stone removed. He reports going to the ED ~2 weeks ago, was given pyridium, denies any other medication prescribedat that time. There have been no changes to his history. He denies fevers/chills, chest pain, SOB. PreOp U/A 03/08/22 in process. Anticoagulation: Eliquis Micro: Lab Results Component Value Date URINECULTURE (A) 10/13/2021 Greater than 50,000 cfu/mL Roxy albicans Greater than 50,000 cfu/mL Roxy glabrata URINECULTURE (A) 10/13/2021 Greater than 50,000 cfu/mL Roxy glabrata 1,000-9,000 cfu/ml Roxy albicans URINECULTURE (A) 10/13/2021 10,000-49,000 cfu/ml Roxy glabrata 1,000-9,000 cfu/ml Roxy albicans 1,000-9,000 cfu/ml mixed mucosal red MEDICAL AND SURGICAL HISTORY Past Medical History: Diagnosis Date ??? Blood disorder ??? Circulatory disease ??? Diabetes Past Surgical History: Procedure Laterality Date ??? CHOLECYSTECTOMY ??? PRO CYSTOSCOPY, INSERT URETERAL STENT Left 10/13/2021 CYSTO, STENT PLACEMENT (WRVU 2.82) performed by Celia Womack Jr., MD at [facility] ??? PRO CYSTOURETHROSCOPY, URETER CATHETER Left 10/13/2021 CYSTO, RETROGRADE, URETEROPYELOGRAPHY (WRVU 2.37) performed by Celia Womack Jr., MD at [facility] ??? PRO EXCISE EXCESS SKIN TISSUE, ABDOMEN N/A 05/17/2016 ABDOMINOPLASTY performed by Adis Membreno MD at [facility] OR ??? PRO LAP GASTRIC BYPASS/KEYSHA-EN-Y 02/08/2014 @LAPAROSCOPIC GASTROPLASTY, performed by Wally Pfeiffer MD at [facility] OR ??? PRO LAP, DIAGNOSTIC ABDOMEN 02/10/2014 LAPAROSCOPY, DIAGNOSTIC, ABDOMEN performed by Wally Pfeiffer MD at [facility] OR ??? PRO REPAIR INCISIONAL HERNIA, REDUCIBLE N/A 05/17/2016 REPAIR INITIAL INCISIONAL OR VENTRAL HERNIA REDUCIBLE performed [facility] ??? PRO UNLISTED LAPAROSCOPIC PROCEDURE ESOPHAGUS 02/08/2014 LAPAROSCOPIC REVISION OF DELROY FUNDOPLASTY performed by Wally Pfeiffer MD at [facility] OR ??? PRO UPPER GI ENDOSCOPY, BIOPSY 12/11/2013 UPPER GASTROINTESTINAL ENDOSCOPY,WITH BIOPSY SINGLE OR MULTIPLE performed by Wally Pfeiffer MDat [facility] END[facility]COPY ??? PRO UPPER GI ENDOSCOPY, DIAGNOSTIC 12/25/2013 EGD, UPPER GI ENDOSCOPY performed by Wally Pfeiffer MD at [facility] ENDOSCOPY ??? PRO UPPER GI ENDOSCOPY, DIAGNOSTIC 02/08/2014 ENDOSCOPY, UPPER GI, DIAGNOSTIC, WITH OR WITHOUT SPECIMENS performed by Wally Pfeiffer MD at [facility] OR ??? TONSILLECTOMY ??? TOTAL KNEE ARTHROPLASTY bilateral ??? VASECTOMY ALLERGIES No Known Allergies MEDICATIONS No current facility-administered medications on file prior to encounter. Current Outpatient Medications on File Prior to Encounter Medication Sig Dispense Refill ??? apixaban (Eliquis) 5 mg Tablet Take by mouth. ??? OneTouch Ultra Test Strip USE 1 STRIP TO CHECK GLUCOSE FOUR TIMES DAILY DIRECTED ??? OneTouch Ultra2 Meter Misc USE DIRECTED FOUR TIMES A DAY ??? dapagliflozin (Farxiga) 10 mg Tablet Take by mouth. ??? Lantus Solostar U-100 Insulin pen ADMINISTER 10 UNITS UNDER THE SKIN AT BEDTIME ??? metoprolol succinate XL (Toprol-XL) 100 mg Tablet Sustained Release 24 hr Take by mouth. ??? Rybelsus 7 mg Tablet ??? metFORMIN (GLUCOPHAGE) 1,000 mg Tablet 0 ??? RESTASIS 0.05 % Dropperette instill 1 drop into both eyes twice a day as directed 0 ??? JARDIANCE 10 mg Tablet 0 ??? lisinopril (PRINIVIL;ZESTRIL) 5 mg Tablet take 1 tablet by mouth once daily 0 ??? CALCIUM CITRATE/VITAMIN D2 (CALCIUM CITRATE WITH D ORAL) Take 2 tablets by mouth 2 times daily. ??? DILTiazem (DILACOR XR) 240 mg 24 hr capsule Take 1 capsule by mouth daily. Take the short acting Diltiazem four times daily until you can swallow pills. Once you can swallow pills, you can start retaking this long acting Diltiazem. ? ? MULTIVIT &MINERALS/FERROUS FUM (MULTI VITAMIN ORAL) Take 1 tablet by mouth 2 times daily. ??? terazosin (HYTRIN) 2 mg capsule Take 2 mg by mouth nightly. ??? lovastatin (MEVACOR) 20 mg tablet PHYSICAL EXAM Temp: -- Heart Rate: -- Resp: -- BP: -- SpO2: -- Heart Rate from SpO2: -- GEN: Resting comfortably, conversant, NAD. CHEST: respiratory effort normal CV: Regular rate. Labs: No results for input(s): WBC, HGB, HCT, PLATELET in the last 7068 hours. No results for input(s): NA, K, CL, CO2, BUN, CREATININE in the last 7068 hours. Imaging: Relevant imaging reviewed CT a/p 06/01/21: proximal 7-8mm obstructing left ureteral stone. HU 995. A/P: 71 y.o. male who presents today for above procedures. We offered to cancel surgery and instead perform follow up CT to assess whether any stone remains. He declined, wishes to proceed with cystoscopy, possible ureteroscopy. All risks, benefits, and alternatives have been explained, and questions answered. Proceed with scheduled procedure. - Consent confirmed, all questions answered. - Patient marked -LEFT - Preop abx: Ancef & fluconazole - SQH: N/A - T/S: N/A Paulette Pickard MD 03/08/2022 [id number] staff attestation I was present and I participated during the entire procedure. CELIA WOMACK JR, MD documented in this encounter Miscellaneous Notes * Brief Op Note - Celia Womack Jr., MD - 03/09/2022 2:38 PM EDT Brief Operative Note Patient Name: Eugene Rueda : [id number] MR#: [id number] Case Date: 03/09/2022 Surgeon: Surgeon(s) and Role: * Celia Womack Jr., MD - Primary * Paulette Pickard MD - Resident Preoperative diagnosis: LEFT STONE with indwelling stent Postoperative diagnosis: normal cystoscopy Procedure(s) (LRB): CYSTO, CYSTOURETHROSCOPY, DIAGNOSTIC (WRVU 2.23) (N/A) Anesthesia: General Findings: no retained stent identified. Brisk efflux of urine from left ureteral orifice confirmed,thus with history that he believed he may have had stone removed, no further intervention performed Complications: none evident Intake: Intraprocedure Crystalloid Total None Transfusion No data found in the last 1 encounters. Output: Estimated Blood Loss: <3ml Drains: none Specimens removed during surgery: urine for culture Disposition: awakened from anesthesia, extubated and taken to the recovery room in a stable condition, having suffered no apparent untoward event. Condition: doing well without problems Attestation: Case Date: 03/09/2022 I was present and I participated during the entire procedure. (Please see the Surgical Encounter Summary for any Implant and Specimen details pertinent to this patient.) * Op Note - Celia Womack Jr., MD - 03/09/2022 2:17 PM EDT [facility] [place] Patient Name: Eugene Rueda : [id number] MR#: [id number] Case Date: 03/09/2022 Surgeon: Surgeon(s) and Role: * Cleia Womack Jr., MD - Primary * Paulette Pickard MD - Resident Preoperative diagnosis: LEFT STONE with indwelling stent Postoperative diagnosis: normal cystoscopy Procedure(s) (LRB): CYSTO, CYSTOURETHROSCOPY, DIAGNOSTIC (WRVU 2.23) (N/A) Anesthesia: General Findings: no retained stent identified. Brisk efflux of urine from left ureteral orifice confirmed,thus with history that he believed he may have had stone removed, no further intervention performed Complications: none evident Intake: Intraprocedure Crystalloid Total None Transfusion No data found in the last 1 encounters. Output: Estimated Blood Loss: <3ml Drains: none Specimens removed during surgery: urine for culture Disposition: awakened from anesthesia, extubated and taken to the recovery room in a stable condition, having suffered no apparent untoward event. Condition: doing well without problems (Please see the Surgical Encounter Summary for any Implant and Specimen details pertinent to this patient.) HPI/Surgical Indications: Eugene Rueda is a 71 y.o. male with a history of a.fib, COPD, DM, LEFT urolithiasis. He underwent left ureteral stent exchange on 10/13/21 given concern for active UTI with equivocal UA from that same day, showing negative nitrite, 15 RBC, >100 WBC, rare bacteria, few yeast bud, 3 SE. This sample ultimately reflexed to grow 10,000-49,000 cfu/ml Roxy glabrata, 1,000-9,000 cfu/ml Roxy albicans, 1,000-9,000 cfu/ml MMF. His cystoscopic bladder urine grew > 50,000 cfu/mL Roxy glabrata and 1,000- 9,000 cfu/ml Roxy albicans. His left renal urine grew > 50,000 cfu/mL Roxy albicans and >50,000 cfu/mL Roxy glabrata. He was treated with Diflucan 100mg bid x7 days and Keflex 500mg tid [id number]. ?? He presents today for cystoscopy, left ureteroscopy with laser lithotripsy and left ureteral stent exchange. He reports he did have a stone removed. ?? He report that he believes he had had a stone treated in the interval. We thus offered to cancel surgery and obtain imaging to confirm whether there was any residual stone. He declined, requested we proceed with cystoscopic inspection, possible ureteroscopy. Procedure Description: Eugene Rueda was seen preoperatively. Consent was confirmed/obtained, and he was transported to the operating room. He was positioned supine on the operating room table and anesthesia was introduced. He was carefully placed in the dorsal lithotomy position and prepped and draped in the usual fashion. Diffuse mild urethral narrowing was identified, but readily navigated with cystoscope. The cystoscope was inserted into the bladder. The bladder was inspected, and no focal mucosal abnormalities were noted. A sample of urine was collected for culture. No residual stent could be seen. Fluoroscopy confirmed no left ureteral stent and no evidence of radio-opaque stone. The left ureteral orifice was identified, confirmed, and evaluated. Repeated brisk efflux of urine was confirmed from orifice.Thus no ureteroscopy was performed. Eugene Rueda was awakened and taken to the recovery room in stable condition. Attestation: Case Date: 03/09/2022 I was present and I participated during the entire procedure. CELIA WOMACK JR, MD 03/09/2022 documented in this encounter Plan of Treatment Upcoming Encounters Date Type Department Care Team (Late st Contact Info) Description 05/15/2024 10:00 AM EDT [place] [address] Catrachito Mehta MD [facility] [place] [address] documented as of this encounter Procedures Procedure Name Priority Date/Time Associated Diagnosis Comments XR FLUORO NO RAD <1HR - OR USE Routine 03/09/2022 3:01 PM EDT HC URINE CULTURE Routine 03/09/2022 2:47 PM EDT Cystourethroscopy (77809) 2021 1:57 PM EDT LEFT STONE documented in this encounter Results * XR Fluoro No Rad <1Hr - OR Use (03/09/2022 3:01 PM EDT) Narrative Dicom, Auditing User - 03/09/2022 3:01 PM EDT This exam is auto-finalizing. No interpretation was done. Celia Womack Jr., MD IMG FLUORO ORDERAB LES * (ABNORMAL) Urine culture Cystoscopic Urine (03/09/2022 2:47 PM EDT) Urine Culture 1,000-9,000 cfu/ml Roxy glabrata(A) [facility] Organism Roxy glabrata(A) [facility] Cystoscopic Urine 03/09/2022 2:47 PM EDT 03/09/2022 4:00 PM EDT Narrative Resulting Agency Comment Spec In Lab Celia Womack Jr., MD MICROBIOLOGY - GEN ERAL ORDERABLES [facility] [place] [address] documented in this encounter Visit Diagnoses Diagnosis Nephrolithiasis Calculus of kidney documented in this encounter Administered Medications Inactive Administered Medications - up to 3 most recent administrations Medication Order MAR Action Action Date Dose Rate Site acetaminophen (Tylenol) tablet 1,000 mg 1,000 mg, Oral, ONCE, 1 dose, On Sat03/09/22 at 1215, Administer with SIP of H2O only., Day of Surgery (Day of Procedure), Routine Given 03/09/2022 12:22 PM EDT 1,000 mg documented in this encounter Active and Recently Administered Medications Times are shown in EDT. Scheduled Medication Order 03/07/2022 03/08/2022 03/09/2022 acetaminophen (Tylenol) tablet 1,000 mg (COMPLETED) 1,000 mg, Oral, ONCE, 1 dose, On Sat03/09/22 at 1215, Administer with SIP of H2O only., Day of Surgery (Day of Procedure), Routine 1222 (Given - Provid er: Kelsie Mccullough RN) ceFAZolin (Ancef) 2 g in dextrose 5% 100 mL infusion (COMPLETED) 2 g, Intravenous, COLOR FINISHER TO O.R., 1 dose, On Sat03/09/22 at 1215, Administer over 30 Minutes, Day of Surgery (Day of Procedure), Indication for (Active or Suspected): Prophylaxis 1356 (Given - Provid er: Odalis Montes CRNA) fluconazole (Diflucan) 400 mg in sodium chloride 0.9% 200 mL infusion (COMPLETED) 400 mg, Intravenous, COLOR FINISHER TO O.R., 1 dose, On Sat03/09/22 at 1400, Administer over 120 Minutes, Indication for (Active or Suspected): Prophylaxis, Restricted Antibiotic: Please indicate the most appropriate choice: Pre-approved indication (state the indication in comments field) 1408 (Given - Provid er: Odalis Montes CRNA) Continuous Medication Order 03/07/2022 03/08/2022 03/09/2022 lactated ringers infusion (CANCELED) 1,000 mL, at 100 mL/hr, Intravenous, CONTINUOUS, Starting on Sat03/09/22 at 1215, Until Sat03/09/22 at 1546, Day of Surgery (Day of Procedure) 1356 (New Bag - Prov ider: Odalis Montes CRNA)1451 (Anesthesia Volume Adjustment - Provider: Odalis Montes CRNA) documented in this encounter Care Teams Skoog Operator Relationship Specialty Start Date End Date David Massey MD [address] [place] [address] PCP - General Emergency Medicine 03/31/21 documented as of this encounter
--- OUTSIDE RECORDS SUMMARY | 2024-04-27 14:53 | XMS_ITS | Encounter Summary ---
Author Organization [facility] [place] [address] Care Team Providers Care Enterprise Security Architect Name Role Phone Dominic Restrepo MD Primary Care Provider [phone] Encounter Details Date Type Department Care Team (Late Contact Info) Description 12/25/2017 Orders [place] [phone] Marcial Frost PA [facility] [place] [address] Left shoulder pain, unspecified chronicity Social History Tobacco Use Types Packs/Day Years [...] 10:00 AM EDT [place] [phone] Catrachito Mehta MD [facility] [place] [address] documented as of this encounter Visit Diagnoses Diagnosis Left shoulder pain, unspecified chronicity documented in this encounter Care Teams Enterprise Security Architect Relationship Specialty Start Date End Date Dominic Restrepo MD [address] [place] [address] PCP - General Family Medicine 04/22/17 03/30/21 documented as of this encounter
--- OUTSIDE RECORDS SUMMARY | 2024-04-27 14:53 | XMS_ITS | Encounter Summary ---
Author Organization [facility] Address [facility] [place] [address] Care Team Providers Care Plumbing Instructor Name Role Phone David Massey MD Primary Care Provider [phone] Encounter Details Date Type Department Care Team (Late Contact Info) Description 10/10/2021 [place] [address] Jose C Skaggs MD [facility] [place] [address] Social History Tobacco Use Types Packs/Day Years [...] encounter Miscellaneous Notes * Telephone Encounter - Jose C Skaggs - 10/10/2021 9:30 AM EST Spoke to patient Eugene Rueda. I requested Routine urine sample prior to planned ureteroscopy with Dr. Womack. Patient will give sample at [facility] today. Jose C Skaggs MD documented in this encounter Plan of Treatment Upcoming Encounters Date Type Department Care Team (Late Contact Info) Description 05/15/2024 10:00 AM EDT [place] [address] Catrachito Mehta MD [facility] [place] [place] [address] documented as of this encounter Visit Diagnoses Diagnosis Recurrent nephrolithiasis- Primary Calculus of kidney documented in this encounter Care Teams Plumbing Instructor Relationship Specialty Start Date End Date David Massey MD [address] [place] [address] PCP - General Emergency Medicine 03/31/21 documented as of this encounter
--- OUTSIDE RECORDS SUMMARY | 2024-04-27 14:53 | XMS_ITS | Encounter Summary ---
Author Organization [facility] [place] [address] Care Team Providers Care Snowsport Instructor Name Role Phone David Massey MD Primary Care Provider [phone] Encounter Details Date Type Department Care Team (Late Contact Info) Description 03/20/2022 Telephone Vascular [place] [phone] Claire Stuart Social History Tobacco Use Types [...] * Telephone Encounter - Claire Stuart - 03/20/2022 1:48 PM EDT I was able to reach Eugene today - we have scheduled Surgery with Dr. López to be on 05/02/22. Letter sent. [facility] for call back to schedule Surgery with Dr. López documented in this encounter Plan of Treatment Upcoming Encounters Date Type Department Care Team (Late Contact Info) Description 05/15/2024 10:00 AM EDT Office Visit [place] [phone] Catrachito Mehta MD [facility] [place] [address] documented as of this encounter Visit Diagnoses Not on filedocumented in this encounter Care Teams Snowsport Instructor Relationship Specialty Start Date End Date David Massey MD [address] [place] [address] PCP - General Emergency Medicine 03/31/21 documented as of this encounter
--- OUTSIDE RECORDS SUMMARY | 2024-04-27 14:53 | XMS_ITS | Encounter Summary ---
Author Organization [facility] Address [facility] [place] [address] Care Team Providers Care Apprentice Plumber Name Role Phone Dominic Restrepo MD Primary Care Provider [phone] Encounter Details Date Type Department Care Team (Latest Contact Info) Description 09/29/2017 - 09/29/2017 11:59 PM EST Hospital Encounter [place] [address] [facility] [place] [address] Discharge Disposition: Home Social History Tobacco Use [...] Sig Dispensed Refills Start Date End Date lisinopril (PRINIVIL;ZESTRIL) 5 mg Tablet take 1 [...] daily. Start February 19, 2014 02/12/2014 10/13/2021 metFORMIN (GLUCOPHAGE) 500 mg tablet Take 1,000 mg by mouth 2 times daily (with meals). 03/25/2019 documented as of this encounter Plan of Treatment Upcoming Encounters Date Type Department Care Team (Late st Contact Info) Description 05/15/2024 10:00 AM EDT [place] [address] [facility] [place] [place] [address] documented as of this encounter Procedures Procedure Name Priority Date/Time Associated Diagnosis Comments FILM LIBRARY STORAGE ONLY DX SHOULDER Routine 09/29/2017 12:00 AM EST documented in this encounter Results * Film Library- Storage Only DX Shoulder (09/29/2017 12:00 AM EST) Narrative [facility] - 12/25/2017 11:14 AM EDT This exam is for storage only and is auto-finalizing. Adis Franco MD IMG FILM LIBRARY ORD ERABLES [place], [place] documented in this encounter Visit Diagnoses Not on filedocumented in this encounter Care Teams Apprentice Plumber Relationship Specialty Start Date End Date Dominic Restrepo MD [address] [place] [address] PCP - General Family Medicine 04/22/17 03/30/21 documented as of this encounter
--- OUTSIDE RECORDS SUMMARY | 2024-04-27 14:53 | XMS_ITS | Encounter Summary ---
Author Organization [facility] [place] [address] Care Team Providers Care Therapist Physical Name Role Phone Manolo Castro MD Primary Care Provider [phone] Reason for Referral * Physical Therapy (Routine) - Specialty Diagnoses / Procedures Referred By Sonal dawson Referred To Contact Physical Therapy Diagnoses Acute pain of left knee Marcial Frost [place] [facility] [place] [address] Referral ID Status Reason Start Date Expiration Date V isits Requested Visits Authorized [id number] Evaluate and Treat 07/31/2016 01/27/2017 12 12 Reason for Visit * Reason Comments Aftercare Of Tjr bilateral TKA 3 Encounter Details Date Type Department Care Team (Late st Contact Info) Description 07/31/2016 11:00 AM EDT Office Visit Orthopaedics [facility] [place] [address] Marcial Frost [place] [facility] [place] [address] Acute pain of left knee (Primary Dx) Social History Tobacco Use Types Packs/Day Years [...] Sign Reading Time Taken Comments Blood Pressure 151/76 07/31/2016 9:50 AM EDT Pulse 95 07/31/2016 9:50 AM EDT Temperature - - Respiratory Rate - - Oxygen Saturation - - Inhaled Oxygen Concentration - - Weight 100.7 kg (222 lb) 07/31/2016 9:50 AM EDT fully clothed Height 177.2 cm (5' 9.75) 07/31/2016 9:50 AM ED T in shoes Body Mass Index 32.08 07/31/2016 9:50 AM EDT documented in this encounter Progress Notes * Marcial Frost PA - 07/31/2016 11:00 AM EDT Subjective: Surgical History 1. Bilat. TKA - 2002 Eugene Rueda is a 65 years old male self-referred for evaluation and treatment of left knee pain. The pain began 7 days ago. The pain's location is suprapatellar. Patient describes the symptoms as aching. Symptoms improve with rest, ice. Symptoms worsen with standing. The knee does not have given out or felt unstable. The patient can bend and straighten the knee fully. Patient has bilateral TKA done here at [facility]. He stated that both Surgeons responsible for his care are and he can not remember their names. He stated that until a week ago, everything was going well post his Bilateral TKA. Patient's medications, allergies, past medical, surgical, social and family histories were reviewedand updated as appropriate. ROS: Denies fevers, chills, night sweats, nausea, or vomiting. Objective: General : alert, appears stated age and cooperative Gait: Normal. The patient can bear weight on the injured extremity. Left Lower Extremity Knee Effusion: 0-1+ Ecchymosis: none Knee ROM: 0 to 100 degrees without subpatellar crepitance. Patella: Patella does track normally. Patellar apprehension test: negative Patellar compression test: negative Tenderness: quad tendon insertion Mario's Test: negative with no joint line tenderness Sensation: intact to light touch Pulses: normal DP and PT pulses Right Lower Extremity Knee Effusion: 0-1+ Ecchymosis: none Knee ROM: 0 to 100 degrees without subpatellar crepitance. Patella: Patella does track normally. Patellar apprehension test: negative Patellar compression test: negative Tenderness: quad tendon insertion Mario's Test: negative with no joint line tenderness Sensation: intact to light touch Pulses: normal DP and PT pulses Imaging X-rays: 4 views of the knee demonstrate. Right: There is no joint effusion. Mild prepatellar soft tissue edema is unchanged. Stable position of total knee arthroplasty without periprosthetic fracture or lucency. Multiple smooth ossific structures project over the joint line, and intra-articular loose bodies can't be excluded. No change from prior. ?? Assessment: left knee pain Plan: Questions solicited and answered. Patient voiced understanding to info/instructions given. PT for quad strengthening Voltaren gel Follow up: 2 weeks KAY Banks documented in this encounter Plan of Treatment Upcoming Encounters Date Type Department Care Team (Late st Contact Info) Description 05/15/2024 10:00 AM EDT [place] [address] Catrachito Mehta MD [facility] [place] [address] Scheduled Referrals Name Type Priority Associated Diagnoses Orde r Schedule Referral to Physical Therapy Outpatient Referral Routine Acute pain of left knee Ordered: 07/31/2016 documented as of this encounter Visit Diagnoses Diagnosis Acute pain of left knee- Primary documented in this encounter Care Teams Therapist Physical Relationship Specialty Start Date End Date Manolo Castro MD [address] [place] [address] PCP - General 05/14/12 04/21/17 documented as of this encounter
--- OUTSIDE RECORDS SUMMARY | 2024-04-27 14:53 | XMS_ITS | Encounter Summary ---
Author Organization [facility] Address [facility] [place] [address] Care Team Providers Care Healthcare Manager Name Role Phone Manolo Castro MD Primary Care Provider [phone] Encounter Details Date Type Department Care Team (Latest Contact Info) Description 07/31/2016 9:10 AM EDT - 07/31/2016 11:59 PM EDT Hospital Encounter XRay at [address] [place] [address] Carmelo Perla MD [facility] [place] [address] H/O total knee replacement, bilateral Discharge Disposition: Home Social History Tobacco Use [...] Sig Dispensed Refills Start Date End Date CALCIUM CITRATE/VITAMIN D2 (CALCIUM CITRATE WITH D [...] nightly. lovastatin (MEVACOR) 20 mg tablet 04/24/2010 diclofenac (VOLTAREN) 1 % GelIndications:Acute pain of left knee Apply 2 g topically 4 times daily as needed (One finger tip, rub over the painful area). 100 Tube 1 07/31/2016 04/22/2017 warfarin (COUMADIN) 5 mg tablet Take 1 tablet by mouth daily. Start February 19, 2014 02/12/2014 10/13/2021 venlafaxine (EFFEXOR-XR) 75 mg 24 hr capsule Take 1 capsule by mouth daily. You will be prescribed a short acting Effexor, take this two times daily while you are still crushing pills. Once you can swallow pills, you can begin taking the long acting Effexor again. 02/12/2014 04/22/2017 metFORMIN (GLUCOPHAGE) 500 mg tablet Take 1,000 mg by mouth 2 times daily (with meals). 03/25/2019 documented as of this encounter Plan of Treatment Upcoming Encounters Date Type Department Care Team (Late st Contact Info) Description 05/15/2024 10:00 AM EDT [place] [address] Catrachito Mehta MD [facility] [place] [address] documented as of this encounter Procedures Procedure Name Priority Date/Time Associated Diagnosis Comments XR KNEE AP AND LAT BILAT Routine 07/31/2016 9:32 AM EDT H/O total knee replacement, bilateral documented in this encounter Results * XR Knee AP & Lateral - Bilateral (Generic) (07/31/2016 9:32 AM EDT) Anatomical Region Laterality Modality Knee Bilateral Digital Radiogra phy Impressions 07/31/2016 10:20 AM EDT Stable appearance of bilateral knee arthroplasties. No periprosthetic fracture or complication. Narrative 07/31/2016 10:20 AM EDT EXAMINATION: XR KNEE 1-2 VIEWS BILAT (GENERIC) CLINICAL HISTORY: BILAT TKA TECHNIQUE: AP and lateral views of both knees COMPARISON: 05/07/2014 FINDINGS: Left: There is no knee joint effusion. Stable appearance of total knee arthroplasty with patellar resurfacing. Stable bone-cement and prosthetic interface. No periprosthetic fracture or lucency. No periarticular calcification/mineralization. Right: There is no joint effusion. Mild prepatellar soft tissue edema is unchanged. Stable position of total knee arthroplasty without periprosthetic fracture or lucency. Multiple smooth ossific structures project over the joint line, and intra-articular loose bodies can't be excluded. No change from prior. Procedure Note Belle Butts MD - 07/31/2016 EXAMINATION: XR KNEE 1-2 VIEWS BILAT (GENERIC) CLINICAL HISTORY: BILAT TKA TECHNIQUE: AP and lateral views of both knees COMPARISON: 05/07/2014 FINDINGS: Left: There is no knee joint effusion. Stable appearance of total knee arthroplasty with patellar resurfacing. Stable bone-cement andprosthetic interface. No periprosthetic fracture or lucency. No periarticular calcification/mineralization. Right: There is no joint effusion. Mild prepatellar soft tissue edema is unchanged. Stable position of total knee arthroplasty withoutperiprosthetic fracture or lucency. Multiple smooth ossific structures project over thejoint line, and intra-articular loose bodies can't be excluded. No change fromprior. IMPRESSION Stable appearance of bilateral knee arthroplasties. No periprostheticfracture or complication. Carmelo Perla MD IMG DX ORDERABLES documented in this encounter Visit Diagnoses Diagnosis H/O total knee replacement, bilateral documented in this encounter Care Teams Healthcare Manager Relationship Specialty Start Date End Date Manolo Castro MD [address] [place] [address] PCP - General 05/14/12 04/21/17 documented as of this encounter
--- OUTSIDE RECORDS SUMMARY | 2024-04-27 14:53 | XMS_ITS | Encounter Summary ---
Author Organization [facility] [place] [address] Care Team Providers Care Manager Furniture Name Role Phone Manolo Castro MD Primary Care Provider [phone] Encounter Details Date Type Department Care Team (Late Contact Info) Description 03/18/2017 Telephone [place] [address] Sandie Gibbs Social History Tobacco Use Types Packs/Day Years [...] encounter Miscellaneous Notes * Telephone Encounter - Sandie Gibbs - 03/18/2017 8:56 AM EDT Spoke on the phone with patient to schedule his fuv documented in this encounter Plan of Treatment Upcoming Encounters Date Type Department Care Team (Late Contact Info) Description 05/15/2024 10:00 AM EDT Office [place] [address] Catrachito Mehta MD [facility] [place] [address] documented as of this encounter Visit Diagnoses Not on filedocumented in this encounter Care Teams Manager Furniture Relationship Specialty Start Date End Date Manolo Castro MD [address] [place] [address] PCP - General 05/14/12 04/21/17 documented as of this encounter
--- OUTSIDE RECORDS SUMMARY | 2024-04-27 14:53 | XMS_ITS | Encounter Summary ---
Author Organization [facility]ly [facility] [place] [address] Care Team Providers Care Newspaper Writer Name Role Phone David Massey MD Primary Care Provider [phone] Encounter Details Date Type Department Care Team (Late Contact Info) Description 10/16/2021 [place] [address] Luba Lambert LNA Social History Tobacco Use Types Packs/Day Years [...] encounter Miscellaneous Notes * Telephone Encounter - Luba Lambert LNA - 10/16/2021 1:00 PM EST LVM letting patient know, Per Dr. Pickard, to finish course of flucon. And keflex. documented in this encounter Plan of Treatment Upcoming Encounters Date Type Department Care Team (Late Contact Info) Description 05/15/2024 10:00 AM EDT [place] [address] [facility] [place] [address] documented as of this encounter Visit Diagnoses Not on filedocumented in this encounter Care Teams Newspaper Writer Relationship Specialty Start Date End Date David Massey MD [address] [place] [address] PCP - General Emergency Medicine 03/31/21 documented as of this encounter
--- OUTSIDE RECORDS SUMMARY | 2024-04-27 14:53 | XMS_ITS | Encounter Summary ---
Author Organization [facility] [place] [address] Care Team Providers Care Network Communications Engineer Name Role Phone Dominic Restrepo MD Primary Care Provider [phone] Encounter Details Date Type Department Care Team (Late Contact Info) Description 05/09/2017 Orders Only [place] [address] Narda Allen APRN [facility] [place] [address] Disorder of iron metabolism; Status post bariatric surgery; Intestinal malabsorption, unspecified type; Iron deficiency Social History Tobacco Use Types Packs/Day Years [...] 10:00 AM EDT [place] [address] Catrachito Mehta MD [facility] [place] [address] documented as of this encounter Visit Diagnoses Diagnosis Disorder of iron metabolism Other disorders of iron metabolism Status post bariatric surgery Bariatric surgery status Intestinal malabsorption, unspecified type Iron deficiency Iron deficiency anemia, unspecified documented in this encounter Care Teams Network Communications Engineer Relationship Specialty Start Date End Date Dominic Restrepo MD [address] [place] [address] PCP - General Family Medicine 04/22/17 03/30/21 documented as of this encounter
--- OUTSIDE RECORDS SUMMARY | 2024-04-27 14:53 | XMS_ITS | Encounter Summary ---
[place] [address] Care Team Providers Care Staffing And Scheduling Coordinator Name Role Phone Manolo Castro MD Primary Care Provider [phone] Encounter Details Date Type Department Care Team ([facility] Contact Info) Description 03/28/2017 Telephone [place] [address] Sandie Gibbs Social History Tobacco Use Types [...] * Telephone Encounter - Sandie Gibbs - 03/28/2017 9:22 AM EDT LMOM for Mr. Rueda to see if she is interested in scheduling a follow-up visit with Narda Allen. I asked her to give us a call back to set up an appointment and let her know that I will be mailing her a letter in the mail. documented in this encounter Plan of Treatment Upcoming Encounters Date Type Department Care Team ([facility] Contact Info) Description 05/15/2024 10:00 AM EDT Office [place] [address] Catrachito Mehta MD [facility] [place] [address] documented as of this encounter Visit Diagnoses Not on filedocumented in this encounter Care Teams Staffing And Scheduling Coordinator Relationship Specialty Start Date End Date Manolo Castro MD [address] [place] [address] PCP - General 05/14/12 04/21/17 documented as of this encounter
--- OUTSIDE RECORDS SUMMARY | 2024-04-27 14:53 | XMS_ITS | Encounter Summary ---
Author Organization [facility] Address [facility] [place] [address] Care Team Providers Care Analysis Tester Name Role Phone David Massey MD Primary Care Provider [phone] Reason for Visit * Auth/Cert Specialty Diagnoses / Procedures Referred By Sonal dawson Referred To Contact Diagnoses Left renal stone LEFT STONE Procedures PRO CYSTO/URETERO/PYELOSCOPY W/LITHOTRIPSY CYSTOURETEROSCOPY, LITHOTRIPSY (WRVU 7.5) MODIFIER HOLMIUM LASER Referral ID Status Reason Start Date Expiration Date Visits Re quested Visits Authorized [id number] 1 1 Encounter Details Date Type Department Care Team (Late st Contact Info) Description 03/09/2022 1:18 PM EDT - 03/09/2022 3:38 PM EDT Surgery Outpatient [place] [address] Celia Womack Jr., MD [facility] [place] [address] CYSTO, CYSTOURETHROSCOPY, DIAGNOSTIC (WRVU 1.53) Social History Tobacco Use Types Packs/Day Years [...] closest emergency room or call the hospital gear cutting machine operator at [phone] and ask for physician prison teacher covering for your physician. Questions or problems after 5pm or on a weekend: Call the [facility] gear cutting machine operator at and ask for the physician prison teacher covering for your doctor. * Patient Instructions* Paulette Pickard MD - 03/08/2022 11:52 AM EDT Discharge Instructions after Cystoscopy Call your doctor for: Fevers greater than 101.3F Severe nausea or vomiting Increasing pain not controlled by pain medications Inability to urinate The number for questions is [phone] before 5 PM weekdays and [phone] after 5 PM and weekends if questions [...] renal ultrasound before your appointment. Please call [phone] if you do not receive your appointment. [...] bid x7 days and Keflex 500mg tid [id number]. He presents today for cystoscopy, left ureteroscopy [...] performed by Celia Womack Jr., MD at [facility] ??? PRO CYSTOURETHROSCOPY, URETER CATHETER Left 10/13/2021 CYSTO, RETROGRADE, URETEROPYELOGRAPHY (WRVU 2.37) performed by Celia Womack Jr., MD at [facility] ??? PRO EXCISE EXCESS SKIN TISSUE, ABDOMEN N/A 05/17/2016 ABDOMINOPLASTY performed by Adis Membreno MD at [facility] OR ??? PRO LAP GASTRIC BYPASS/KEYSHA-EN-Y 02/08/2014 @LAPAROSCOPIC GASTROPLASTY, performed by Wally Pfeiffer MD at [facility] OR ??? PRO LAP, DIAGNOSTIC ABDOMEN 02/10/2014 LAPAROSCOPY, DIAGNOSTIC, ABDOMEN performed by Wally Pfeiffer MD at [facility] OR ??? PRO REPAIR INCISIONAL HERNIA, REDUCIBLE N/A 05/17/2016 REPAIR INITIAL INCISIONAL OR VENTRAL HERNIA REDUCIBLE [facility] ??? PRO UNLISTED LAPAROSCOPIC PROCEDURE ESOPHAGUS 02/08/2014 LAPAROSCOPIC REVISION OF DELROY FUNDOPLASTY performed by Wally Pfeiffer MD at [facility] OR ??? PRO UPPER GI ENDOSCOPY, BIOPSY 12/11/2013 UPPER GASTROINTESTINAL ENDOSCOPY,WITH BIOPSY SINGLE OR MULTIPLE performed by Wally Pfeiffer MDat [facility] ENDOSCOPY ??? PRO UPPER GI ENDOSCOPY, DIAGNOSTIC 12/25/2013 EGD, UPPER GI ENDOSCOPY performed by Wally Pfeiffer MD at [facility] ENDOSCOPY ??? PRO UPPER GI ENDOSCOPY, DIAGNOSTIC 02/08/2014 ENDOSCOPY, UPPER GI, DIAGNOSTIC, WITH OR WITHOUT SPECIMENS performed by Wally Pfeiffer MD at [facility] OR ??? TONSILLECTOMY ??? TOTAL KNEE [...] Operative Note Patient Name: Eugene Rueda : [id number] MR#: [id number] Case Date: 03/09/2022 Surgeon: Surgeon(s) and Role: [...] Jr., MD - 03/09/2022 2:17 PM EDT [facility] Operative Note Patient Name: Eugene Rueda : [id number] MR#: [id number] Case Date: 03/09/2022 Surgeon: Surgeon(s) and Role: [...] bid x7 days and Keflex 500mg tid [id number]. ?? He presents today for cystoscopy, left [...] 10:00 AM EDT [place] [address] Catrachito Mehta MD [facility] [place] [address] documented as of this encounter Procedures Procedure Name Priority Date/Time Associated Diagnosis Comments XR FLUORO NO RAD <1HR - OR USE Routine 03/09/2022 3:01 PM EDT HC URINE CULTURE Routine 03/09/2022 2:47 PM EDT Cystourethroscopy (45327) 2021 1:57 PM EDT LEFT STONE documented [...] EDT) Urine Culture 1,000-9,000 cfu/ml Roxy glabrata(A) [facility] Organism Roxy glabrata(A) [facility] Cystoscopic Urine 03/09/2022 2:47 PM EDT 03/09/2022 4:00 PM EDT Narrative Resulting Agency Comment Spec In Lab Celia Womack Jr., MD MICROBIOLOGY - GEN ERAL ORDERABLES [facility] [place] [address] documented in this encounter Visit Diagnoses Not [...] 100 mL infusion (COMPLETED) 2 g, Intravenous, TECHNICAL SALES SUPPORT MANAGER TO O.R., 1 dose, On Sat03/09/22 at 1215, Administer over 30 Minutes, Day of Surgery (Day of Procedure), Indication for (Active or Suspected): Prophylaxis 1356 (Given - Provid er: Odalis Montes CRNA) fluconazole (Diflucan) 400 mg in sodium chloride 0.9% 200 mL infusion (COMPLETED) 400 mg, Intravenous, TECHNICAL SALES SUPPORT MANAGER TO O.R., 1 dose, On Sat03/09/22 at [...] CRNA) documented in this encounter Care Teams Analysis Tester Relationship Specialty Start Date End Date David Massey MD [address] [place] [address] PCP - General Emergency Medicine 03/31/21 documented as of this encounter
--- OUTSIDE RECORDS SUMMARY | 2024-04-27 14:53 | XMS_ITS | Encounter Summary ---
Author Organization [facility] Address [facility] [place] [address] Care Team Providers Care Light Coil Winder Name Role Phone David Massey MD Primary Care Provider [phone] Encounter Details Date Type Department Care Team (Late Contact Info) Description 10/09/2021 11:00 AM EST TH Visit (TeleHealth) [place] [address] Social History Tobacco Use Types Packs/Day Years [...] 10:00 AM EDT Office [place] [address] Catrachito Mehta MD [facility] [address] documented as of this encounter Visit Diagnoses Not on filedocumented in this encounter Care Teams Light Coil Winder Relationship Specialty Start Date End Date David Massey MD [address] [place], [place] [id number] PCP - General Emergency Medicine 03/31/21 documented as of this encounter
--- OUTSIDE RECORDS SUMMARY | 2024-04-27 14:53 | XMS_ITS | Encounter Summary ---
Author Organization [facility] [place] [address] Care Team Providers Care High School Admissions Representative Name Role Phone David Massey MD Primary Care Provider [phone] Reason for Visit * Diagnostic Test (Routine) - Closed Specialty Diagnoses / Procedures Referred By Sonal dawson Referred To Contact Diagnoses Leg edema Procedures Venous Valvular Incomp, Bilat Legs Yanira Ha, PRECINCT COMMANDING OFFICER [facility] [place] [address] [facility] Vascular Lab [address] [address] Referral ID Status Reason Start Date Expiration Date V isits Requested Visits Authorized [id number] Closed Specialty Service Requested 12/05/2021 12/05/2022 1 1 Encounter Details Date Type Department Care Team (Late st Contact Info) Description 01/10/2022 10:00 AM EDT Tech [place] [address] Estef[place]n [place] Leg edema Social History Tobacco Use Types [...] 10:00 AM EDT [place] [address] Catrachito Mehta MD [facility] [place] [address] documented as of this encounter Procedures Procedure Name Priority Date/Time Associated Diagnosis Comments VENOUS VALVULAR INCOMP, BILAT LEGS Routine 01/10/2022 9:36 AM EDT Leg edema documented in this encounter Results * Venous Valvular Incomp, Bilat Legs (01/10/2022 9:36 AM EDT) VB Text Report Department: Vascular Surgery Lab Patient: [id number] (EUGENE PURVIS) CPT: 77535 Referring Physician: YANIRA HA APRN ?? Indications: ??Bilateral lower extremity edema, lower [...] VASCUBASE 01/10/2022 9:36 AM EDT Yanira Ha PRECINCT COMMANDING OFFICER VASCULAR ORDERABLE S VASCUBASE documented in this encounter Visit Diagnoses Diagnosis Leg edema Edema documented in this encounter Care Teams High School Admissions Representative Relationship Specialty Start Date End Date David Massey MD [address] [place] [address] PCP - General Emergency Medicine 03/31/21 documented as of this encounter
--- OUTSIDE RECORDS SUMMARY | 2024-04-27 14:53 | XMS_ITS | Encounter Summary ---
Author Organization [facility] [place] [address] Care Team Providers Care Cytology Laboratory Manager Name Role Phone Dominic Restrepo MD Primary Care Provider [phone] Encounter Details Date Type Department Care Team (Late Contact Info) Description 04/22/2017 Telephone [place] [address] Tracy Joy Social History Tobacco Use Types Packs/Day Years [...] encounter Miscellaneous Notes * Telephone Encounter - Tracy Joy - 04/22/2017 2:55 PM EDT Received notes from [facility] dated 02/06/17, put in 's inbasket documented in this encounter Plan of Treatment Upcoming Encounters Date Type Department Care Team (Late Contact Info) Description 05/15/2024 10:00 AM EDT Office [place] [address] Catrachito Mehta MD [facility] [place] [address] documented as of this encounter Visit Diagnoses Not on filedocumented in this encounter Care Teams Cytology Laboratory Manager Relationship Specialty Start Date End Date Dominic Restrepo MD [address] [place] [address] PCP - General Family Medicine 04/22/17 03/30/21 documented as of this encounter
--- OUTSIDE RECORDS SUMMARY | 2024-04-27 14:53 | XMS_ITS | Encounter Summary ---
Author Organization [facility] Address [facility] [place] [place] [address] Care Team Providers Care Commercial Technician Name Role Phone Dominic Restrepo MD Primary Care Provider [phone] Encounter Details Date Type Department Care Team (Late st Contact Info) Description 04/22/2017 11:00 AM EDT Office [place] [address] Stephanie Butcher MD [facility] [place] [address] Ventral hernia without obstruction or gangrene Social History Tobacco Use Types Packs/Day Years [...] as of this encounter Progress Notes * Stephanie Butcher MD - 04/22/2017 11:00 AM EDT Mr. Rueda was seen in followup as part of his bariatric followup. He complained of some discomfort on the lateral aspect of his previous panniculectomy and hernia repair. No obvious palpable bulges seen on examination. He denied any history of incarceration or strangulation and he feels this is a pulling sensation, particularly with certain movements. I could not feel a reducible hernia on exam. I think he may be having some inflammation around some of the fixation sites of the mesh and I have suggested he try a very cautious low dose course of ibuprofen along with Epsom salt for the next 5-7 days to see if anti-inflammatories may improve this discomfort. If it does, then no further followup is indicated. If, however, it does not or he develops other symptoms, then he will follow up with me for CT for further evaluation. He is agreeable to this plan. Cc: Dr. Adis Restrepo documented in this encounter Plan of Treatment Upcoming Encounters Date Type Department Care Team (Late st Contact Info) Description 05/15/2024 10:00 AM EDT [place] [address] Catrachito Mehta MD [facility] [place] [address] documented as of this encounter Visit Diagnoses Diagnosis Ventral hernia without obstruction or gangrene Ventral hernia, unspecified, without mention of obstruction or gangrene documented in this encounter Care Teams Commercial Technician Relationship Specialty Start Date End Date Dominic Restrepo MD [address] [place] [address] PCP - General Family Medicine 04/22/17 03/30/21 documented as of this encounter
--- OUTSIDE RECORDS SUMMARY | 2024-04-27 14:53 | XMS_ITS | Encounter Summary ---
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 Name Role Phone Dominic Restrepo MD Primary Care Provider [phone] Reason for Visit * Reason Comments Follow-up Bariatric Surgery Pr lexi follow up Encounter Details Date Type Department Care Team (Late Contact Info) Description 04/22/2017 9:30 AM EDT Office [place] [address] Narda Allen, [facility] [place] [address] Disorder of iron metabolism; Status post bariatric surgery; Intestinal malabsorption, unspecified type; Essential hypertension; Obstructive sleep apnea; Vitamin D deficiency Social History Tobacco Use Types Packs/Day [...] Sign Reading Time Taken Comments Blood Pressure 138/75 04/22/2017 9:17 AM EDT Pulse 97 04/22/2017 9:17 AM EDT Temperature - - Respiratory Rate - - Oxygen Saturation 99% 04/22/2017 9:17 AM EDT Inhaled Oxygen Concentration - - Weight 101.2 kg (223 lb 3.2 oz) 04/22/2017 9:17 AM EDT Height 175.3 cm (5' 9) 04/22/2017 9:17 AM EDT Body Mass Index 32.96 04/22/2017 9:17 AM EDT documented in this encounter Patient Instructions * Patient Instructions* Keila Hickman - 04/22/2017 9:30 AM EDT [facility] Admin coordinator Tracy: [phone] Dietitian: [phone] Surgeons/ nurse practitioner: [phone] Nurse line: [phone] Keep up the good work! Testing: Labwork: Today. Go to [facility], which is 1 flight below the General Surgery Clinic. Please note that you will always receive a letter with lab results and recommendations. Please readthis letter carefully and follow recommendations. The letter also contains information regarding your next lab draw. A copy of your labwork and office visit today is sent to your primary lawn care specialist Consider seeing a orthopedic doctor for your knee pain Wear suspenders instead of a belt to help with skin breakdown Next visit: 1 year Routine visits are done at 4.8,12, 18 and 24 months after surgery, and yearly thereafter. Please call [phone] if you do not receive an appointment by 3-4 weeks prior to the expected visit. Medications: 1. Discuss possible diuretic therapy with your PCP 2. Further recommendations pending labwork. Vitamins: The following vitamins are recommended: ??? Multivitamins with minerals twice daily- needs to be an under 50 multivitamin that contains iron. No senior multivitamins. (Or read the serving size if taking a Bariatric specific multivitamin such as procare). Switch to a under age 50 multivitamin and avoid senior multivitamins. ??? Vitamin B12 500 mcg by mouth once daily ??? Calcium citrate 600 mg with Vitamin D 400 units twice daily (600 mg in AM and 600 mg in PM- 2 pills twice a day) (or 1 chewable twice a day) Increase calcium to 2 pills, twice a day. Nutrition recommendations: Work on consuming a high protein breakfast every day. Continue to avoid dairy, rice, and other foods that cause stomach pain and continue to work on eating slowly. Work on increasing fruit and vegetable intake. - Your Daily Goals: ?? 1,000-1,200 calories per day (300 calories per meal, 100 calories per snack, 1-2 snacks per day) ?? 60 grams of protein per day (20 grams per meal) ?? 48-64 oz of non-caloric and hydrating fluids per day (6-8, 8 oz cups) ?? Do not drink with meals- pushes food through more quickly, can cause upset stomach Activity: ??? Aim for 30 minutes of exercise daily, 5 days a week of both cardio and strength training exercises. Continue walking and work on increasing as tolerated. Alcohol: should be used sparingly, no more than one drink per occasion. Alcohol is a source of empty calories and can cause ulcers and vitamin and mineral deficiencies. Alcohol is toxic to the liver and is absorbed more quickly after surgery, it stays in the system longer. Studies have noted that there is an increased risk of alcohol dependence after bariatric surgery. f non-prescribed drugs and treet drugs is unsafe Anti-inflammatory medications such as Advil, Aleve, Excedrin, Ibuprofen should be used sparingly after gastric bypass, since they increase the risk of ulcer. Call us: ??? If you have concerns. ??? If you have unexplained abdominal pain. ??? if you see blood in your stool or vomit blood ??? If you have prolonged vomiting Post Surgery Support Group: Our post surgery support group meets on the first Saturday of every month from 1-2 PM at [facility] no registration required Nutrition and Activity apps- Baritastic, My Fitness Pal, Lose It, My Plate Internet resources: www.BDA www.Cyan www.bariatriceating.TurningArt www.M-Farm.TurningArt/blog [facility] facebook page: [email or web address] Books & Magazines: - Recipes for Life After Weight Loss Surgery by Claudia Mcdonald - Shrink Yourself by Dr Darrel Kaur - Eating Well - Cooking Light documented in this encounter Progress Notes * Narda Allen - 04/22/2017 9:30 AM EDT Reason for visit: follow up S/P laparoscopic takedown of Ronnell fundoplication and conversion to Aviva-en-Y gastric bypass on 02/08/2014 Complications summary: Early reop on 02/10 for intra-abdominal bleed Late none Visits summary: Compliance with scheduled BSP follow-up: poor, no-shows, no response to phone calls, letters requesting follow up Bariatric surgery graduates support group attendance: none Pre-op 11/03/13 Wt (lbs) 257 BMI 38.1 WT visit #2 253 HT:68.8 Post-op Visit date Wt (lbs) BMI %EBW lost Supplement compliance Labwork 03/02/14 221 32.7 35 good - PCP lab: 09/14/14: Hg 12.3 Hct 37.5 TC 170 tg 70 HDL 38 LDL d 123 12/08/15 214 31.7 41.7 Multi w/o iron, ca cit BID, B12 BID D3 2K/day 07/21/15: A1c 6.9 12/07: Hg 13 Hct 38.4 ferritin 72 iron 50 sat 16% B12 1487 Nl CMP PTH 87 D 44 TSH 2.8 04/22/17 223 32.9 33 Multi w/o iron, ca cit 1 tab QD, B12 QD D3 ?5K/day 04/22: Hg 12.7 Hct 39.2 ferritin 27 iron 55 sat 16% B12 1379 Nl CMP PTH 61 D 48 Screening: Date Evaluation Results 02/2017 Primary care 04/04/12 Colonoscopy polyps in descending and sigmoid colon, glasgow diverticulosis, grade II hemorrhoids - DEXA Problem List ??? Preoperative Class II obesity BMI 38.1, S/P gastric bypass ??? Hypertension: off ramipril post surgery, current treatment with low dose lisinopril for renal protection, remains on diltiazem for AF. Also takes hytrin - preop treatment with ramipril ??? Type 2 diabetes mellitus diagnosed ~2008, less than ideally controlled prior to surgery: remains on metformin. Glyburide D/c post surgery. A1c 6.9 on 11/30/16 A. Preop treatment: glyburide, metformin ??? Hyperlipidemia: remains on lovastatin, last check unknown ??? History of GERD, S/P repair of paraesophageal hernia and Ronnell fundoplication: asymptomatic ??? 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 PSG done in 1998: AHI of 22 and a supine index of 75. Oxygen saturation was as low as 88%. B. CPAP study done on 06/30/2008, at a weight of 238 pounds, he had an AHI of 78, minimum saturation of 78% ??? Atrial fibrillation: continues treatment with Diltiazem and Coumadin A. Cardiac ECHO done on 11/18/13: Technically difficult study. Left ventricular chamber size, wall thickness, global and segmental systolic function are within normal limits. Ejection fraction is estimated to be 60%. The left atrium is moderately dilated. The right atrium is moderately dilated. There is mild (1+/4+) mitral regurgitation present. ??? Chronic anticoagulation: remains on warfarin ??? Peripheral vascular disease ??? Musculoskeletal issues: unchanged, has knee pain, stiffen up no current treatment A. Back pain ??? Varicose veins both legs, no DVT history A. Rehab med evaluation on 11/18/13: recommended knee highs. ??? Depression: stable on medication ??? Anemia of chronic disease: stable, ONEIDA by today's lab, no current iron in multivitamin ??? Fatigue ??? Hypogonadism ??? Lactose intolerance ??? Decreased hearing right ear, wears hearing aid ??? Tattoo ??? Diverticulosis ??? Hemorrhoids ??? Asbestosis, asymptomatic ??? History of remote renal stone in 1980s: quiescent ??? History of tubulovillous adenoma colon polyps 04/04/2012: reports that he is due for a repeat colonoscopy, has not been scheduled Past Surgical History Procedure Date ??? Laparoscopic takedown of Ronnell fundoplication and conversion to Aviva en Y gastric bypass (Dr. Pfeiffer) 02/08/2014 ??? Diagnostic laparoscopy, evacuation of intra-abdominal blood 02/10/2014 ??? Laparoscopic paraesophageal hernia repair and Ronnell fundoplication 07/16/2002 ??? Panniculectomy and repair of ventral hernia 13 x [address] mesh (Dr[address] Butcher) 05/18/2016 ??? Laparoscopic umbilical hernia repair with Bard Ventrio ST circular mesh (11.4 cm in diameter) at [facility] 10/15/2012 ??? Vasectomy ??? Right carpal tunnel release ~2007 ??? Septoplasty, Bilateral inferior turbinoplasty, Uvulopalatopharyngoplasty 08/25/1999 ??? Tonsillectomy ~1955 ??? Bilateral total knee arthroplasty 12/16/2002 No Known Allergies Medications 04/25/17 7082 Medication Sig Taking? CALCIUM CITRATE/VITAMIN D2 (CALCIUM CITRATE WITH D ORAL) Take 2 tablets by mouth 2 times daily. Yes warfarin (COUMADIN) 5 mg tablet Take 1 tablet by mouth daily. Start February 19, 2014 Yes DILTiazem (DILACOR XR) 240 mg 24 hr capsule Take 1 capsule by mouth daily. Take the short acting Diltiazem four times daily until you can swallow pills. Once you can swallow pills, you can start retaking this long acting Diltiazem. Yes MULTIVIT &MINERALS/FERROUS FUM (MULTI VITAMIN ORAL) Take 1 tablet by mouth 2 times daily. Yes terazosin (HYTRIN) 2 mg capsule Take 2 mg by mouth nightly. Yes metFORMIN (GLUCOPHAGE) 500 mg tablet Take 1,000 mg by mouth 2 times daily (with meals). Yes lovastatin (MEVACOR) 20 mg tablet Yes lisinopril Take 5 mg by mouth once daily Yes Changes to health/ evaluations/ social history since last visit: as per updated problem list. He underwent a hernia repair and panniculectomy. He doesn't like the shape of his abdomen, wishes that more skin could have been removed during the panniculectomy Subjective. Patient concerns at today's visit: Eugene returns for routine follow up. He has gained 9 pounds since his last visit. He is feeling well overall. Dairy products upset stomach, cause diarrhea He is concerned that he has another hernia, stomach feels rock hard, feels like left hernia, no bulge, lake to right of abdomen He denies NSAID use Bowel regimen: no difficulty, daily BM Review of Systems (negative if left blank): Constitutional: [] fatigue [] pica Neurologic: [] paresthesias [] memory loss CV: [+] treatment for hypertension or taking antihypertensive medication [+] treatment for hyperlipidemia Pulmonary: [] sleep apnea symptoms [+ ] treatment for CARLOS A GI: [] GERD [] dysphagia [] dumping [] abdominal pain [] hernia [] nausea/vomiting [] blood in stool [] chronic diarrhea/ constipation Skin: [] redundant skin or skinfold rashes Heme/Lymph: [] excessive bruising [] blood donor in past year Psychiatric [] mental health concerns Other: Exercise/activity level: as per RD note 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 Objective: General: 66 y.o. year-old male looks well. Heart: irreg irreg Lungs: CTA bilaterally without wheezing Abdomen: soft, non-tender, protuberant per baseline. Abdominal trocar sites/ panniculectomy well-healed. Unable to appreciate hernia Extremities: venous stasis, 1+ edema Vital signs: BP 138/75 (BP Location (NBP): Right arm, Patient Position: Sitting, BP Cuff Sizes: Adult (25-34 cm)) Pulse 97 Ht 175.3 cm (5' 9) Wt (!) 101.2 kg (223 lb 3.2 oz) SpO2 99% BMI 32.96 kg/m2 Results for EUGENE PURVIS ( ) Ref. Range 04/22/2017 11:18 WBC Latest Ref Range: 4.0 - 9.5 x10(3)/mcL 7.0 RBC Latest Ref Range: 4.58 - 5.54 x10(6)/mcL 4.49 (L) Hemoglobin Latest Ref Range: 13.7 - 16.5 gm/dL 12.7 (L) Hematocrit Latest Ref Range: 40.5 - 48.5 % 39.2 (L) MCV Latest Ref Range: 82.9 - 93.1 fL 87.3 MCH Latest Ref Range: 27.5 - 32.1 pg 28.3 MCHC Latest Ref Range: 32.0 - 35.7 gm/dL 32.4 RDWSD Latest Ref Range: 36.0 - 45.0 fL 48.4 (H) RDWCV Latest Ref Range: 11.4 - 13.8 % 15.1 (H) Platelets Latest Ref Range: 145 - 357 x10(3)/mcL 194 MPV Latest Ref Range: 7.6 - 12.9 fL 10.0 nRBC % Auto Latest Units: % 0.0 nRBC Abs Auto Latest Ref Range: 0.000 - 0.000 x10(3)/mcL 0.000 Sodium Latest Ref Range: 135 - 145 mmol/L 142 Potassium Latest Ref Range: 3.5 - 5.0 mmol/L 4.0 Chloride Latest Ref Range: 98 - 107 mmol/L 101 CO2 Latest Ref Range: 22 - 31 mmol/L 25 Anion Gap Latest Ref Range: 5 - 15 mmol/L 16 (H) BUN Latest Ref Range: 10 - 20 mg/dL 23 (H) Creatinine Latest Ref Range: 0.80 - 1.50 mg/dL 1.05 Estimated GFR Latest Ref Range: >=60 >60 Glucose Lvl Latest Ref Range: 65 - 199 mg/dL 123 Calcium Latest Ref Range: 8.5 - 10.5 mg/dL 9.3 Total Protein Latest Ref Range: 6.1 - 8.0 gm/dL 7.4 Albumin Latest Ref Range: 3.2 - 5.2 gm/dL 4.3 Total Bilirubin Latest Ref Range: 0.2 - 1.3 mg/dL 0.5 Alk Phos Latest Ref Range: 40 - 120 unit/L 58 AST Latest Ref Range: 0 - 39 unit/L 13 ALT Latest Ref Range: 0 - 55 unit/L 20 Ferritin Latest Ref Range: 30 - 400 ng/mL 27 (L) Iron Latest Ref Range: 45 - 160 mcg/dL 55 TIBC Latest Ref Range: 250 - 450 mcg/dL 353 Iron Saturation Latest Ref Range: 20 - 50 % 16 (L) Vitamin B-12 Latest Ref Range: 207 - 974 pg/mL 1379 (H) 25-OH Vit D Total Latest Ref Range: 30 - 100 ng/mL 48 PTH Latest Ref Range: 15 - 65 pg/mL 61 Assessment: Stable S/P gastric bypass, with loss of 33% of excess body weight. ONEIDA, currently taking multivitamin without iron Plan: ?? Eugene was congratulated on ongoing healthy lifestyle efforts ?? Evaluation by Dr Butcher today for Eugene concerns regarding possible hernia ?? Next BSP visit: 1 year ?? Next labwork: 3 months check iron screen ?? Additional vitamin and mineral supplement recommendations (*in addition to usual post surgery supplements, as noted below): take a multivitamin with iron BID, increase calcium citrate with D to 600 mg BID, continue current dose of vitamin D3 and B12 daily for the next year ?? dietary/ exercise recommendations per RD ?? Advised to call if develops unexplained abdominal pain, concerns or questions He was provided with a Bariatric Program Summary report which included the above recommendations, as well as information on vitamin and mineral supplementation, fluids, exercise and support group meetings. He has had an opportunity to have all his questions answered and is in agreement with the plan of care. Eugene was advised of lab results via mail. RECOMMENDED BARIATRIC SURGERY PROGRAM POSTOPERATIVE FOLLOW-UP: Follow up: done at 4, 8,12 and 18 and 24 months, and yearly thereafter. High risk patients are evaluated on a more frequent basis. *Supplement recommendations: Multivitamin with minerals twice a day, B12 500 mcg once a day, calcium citrate 600 mg/400 units vitamin D twice a day, iron (ferrous fumarate, polysaccharide iron taken with vitamin C 250 mg once a day) for menstruating females or those with ONEIDA. Labwork: Hemogram, ferritin, iron (transferrin) saturation, iron, folate, Vitamins B1, B12, D (25 hydroxy only), Intact PTH and comprehensive metabolic profile at 4, 12, 18 and 24 months, and yearly.Prealbumin is done at 4 and 12 months and PRN. If labwork is done by the primary lawn care specialist: please send a copy to the Bariatric Surgery Program, General Surgery Clinic, [facility], attention Narda Allen APRN. Questions regarding [facility] Bariatric Surgery Program patients: please call Shayy Allen APRN at [phone] or [phone] beeper [phone]. E-mail: [email or web address] * Keila Hickman - 04/22/2017 9:30 AM EDT Bariatric Surgery Program Nutrition Progress Note Encounter Type: follow up SUBJECTIVE: Topics Discussed/Patient Concerns: ?? He is having trouble with his stomach. His stomach is very hard and it hurts when he eats sometimes and sometimes he regurgitates his food back up. All dairy products, some pasta and white rice cause upset stomach and he tries to avoid these foods. He can tolerate brown rice. The stomach issues have been going on for the last 6-7 months. He thinks he might be eating too quickly which is causing the upset stomach as well. He tries to eat slowly. ?? He believes his weight gain is caused by not exercising enough. His knees have been bothering him. He does not feel anything has changed with his diet. OBJECTIVE: Date of Bariatric Surgery: 02/08/14 Type of Bariatric Surgery: laparoscopic Aviva-en-Y Gastric Bypass Weight History: Date Weight (lbs) %EWL HT BMI Comments 10/02/13 266 Highest Weight 10/02/13 266 68 40.4 Initial program weight 11/03/13 257 68.9 38.1 1st pre-op visit 02/08/14 247 69 34 Surgery 03/02/14 221 35% 32.7 1 month post-op 12/08/15 214# 41.7% 31.6 2 years post-op 04/22/17 223# 33% 32.9 3 years post-op Goal Weight: 170-175#. / body weight loss= 172#. History of obesity since: age 44 Social history: , 3 grown children, 2 stepchildren. Eugene live with one of his sons, Momo(age 36), who is on disability. Close with his 3 siblings, though they live in different states. Biggest support is his son Momo. 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 Vitamin/Mineral Supplements (reported by patient): Supplement Type Brand/Form Dosage/Amount Frequency Comments Multivitamin Complete >50 1 Twice daily Calcium citrate 1 pill daily Vitamin B12 pill 500mcg daily Iron n/a Vitamin D3 Gel tablets ?5,000 IU daily Tracking Intake: none Daily Oral Intake: Breakfast Sometimes eats breakfast 2 scrambed eggs and 1 slice toast- wheat or whole grain or white AM Snack Lunch [place] with tuna or chicken salad or lean hamburger No chips or fries PM Snack Dinner Once in awhile 4-6 oz white fish Last night chicken and corn Sometimes beef Stays away from rice, sometimes has white potato but tries to stay away from carbs HS Snack He hasn't been eating enough fruit or vegetables and wants to increase Protein/ grams per day: 40-60 grams Hydrating fluids- oz/ day: A lot of water, 5-6 12 oz bottles per day, and decaf coffee, lately black, sometimes with splash of cream or splenda Soda: Once in a great while diet soda but not often ETOH: Never Caffeine: Sometimes regular coffee but it upsets his stomach Sweets: None, he is not into sweets Meals per day: 2-3/ day, usually skips breakfast ?? Feels full/satisfied after eating: Very full sometimes, he finds it hard because he will eat, and then his stomach bothers him, and then a few minutes later he feels hungry again ?? Feels hungry []never [x]sometimes []most of the time [] always ?? Drinks with meals: Drinks after he eats, finds it impossible to wait 30 minutes ?? Practices portion control: uses a small plate but feels he might be eating too much ?? Spends at least 20 minutes eating each meal: Trying too, sometimes he eats too quickly ?? Has had dumping syndrome: none, stays away from sweets Foods/Symptoms: ?? In the past month, pt has vomited/regurgitated: Vomited this morning from brown rice he ate lastnight, he didn't feel good and felt queasy last night and then this morning he vomited up watery stuff. But he doesn't vomit often. He used to vomit all of the time but the vomiting stopped 6 months ago. If he eats too fast, sometimes he vomits but he tries not to eat too quickly. Food Allergies/Intolerances: dairy, pasta, white rice Exercise: Walking 1-2 times per day for 10-15 minutes. His knees have been bothering him. ASSESSMENT: Summary of Weight Loss: Patient's percent excess weight loss is 33% which is below the expected post-op bariatric surgery range. Weight up 9# x 1 year, which patient attributes to less activity. Patient is struggling with stomach pain, especially when he eats dairy, pasta, and rice or when he eats too quickly. He has beentrying to avoid these foods and is focusing on eating slower. He is not meeting his protein needs on days he skips breakfast, encouraged him to consume a high protein breakfast every day and avoid skipping meals. He wants to work on increasing his fruit and vegetable intake. He is meeting his fluidneeds. He is compliant with supplements, although recommend he switch to an under age 50 multivitamin and increase his calcium to 2 pills, twice a day. He is active with walking daily, although his activity has decreased due to his knees bothering him. NUTRITION INTERVENTION & MONITORING: ?? Provided support/encouragement and reinforced importance of meeting nutritional goals. ?? Reviewed nutrition and vitamin and mineral supplement recommendations (see patient instructions). ?? Written recommendations provided. Patient agreed with these and verbalized adequate understanding. ?? Evaluation by nurse practitioner today. documented in this encounter Plan of Treatment Upcoming Encounters Date Type Department Care Team (Late st Contact Info) Description 05/15/2024 10:00 AM EDT [place] [address] Catrachito Mehta MD [facility] [place] [address] documented as of this encounter Procedures Procedure Name Priority Date/Time Associated Diagnosis Comments PTH Routine 04/22/2017 11:18 AM EDT Status post bariatric surgery Intestinal malabsorption, unspecified type HEMOGRAM Routine 04/22/2017 11:18 AM EDT Disorder of iron metabolism Status post bariatric surgery Intestinal malabsorption, unspecified type Essential hypertension Obstructive sleep apnea IRON AND TIBC Routine 04/22/2017 11:18 AM EDT Disorder of iron metabolism Status post bariatric surgery Intestinal malabsorption, unspecified type VITAMIN D, 25-HYDROXY Routine 04/22/2017 11:18 AM EDT Status post bariatric surgery Intestinal malabsorption, unspecified type Vitamin D deficiency FERRITIN Routine 04/22/2017 11:18 AM EDT Disorder of iron metabolism Status post bariatric surgery Intestinal malabsorption, unspecified type VITAMIN B12 Routine 04/22/2017 11:18 AM EDT Status post bariatric surgery Intestinal malabsorption, unspecified type COMPREHENSIVE METABOLIC PANEL (NON-FASTING) Routine 04/22/2017 11:18 AM EDT Status post bariatric surgery Intestinal malabsorption, unspecified type Essential hypertension Obstructive sleep apnea documented in this encounter Results * PTH (04/22/2017 11:18 AM EDT) PTH 61 15 - 65 pg/mL [facility] Blood specimen (specimen) 04/22/2017 11:18 AM EDT 04/22/2017 11:25 AM EDT Narrative Resulting Agency Comment Spec In Lab Narda Allen RETARDER OPERATOR CHEMISTRY ORDERAB LES Performing Organization Address City/[facility]/ZIP Co de Phone Number [facility] [place] [address] * (ABNORMAL) Vitamin B12 (04/22/2017 11:18 AM EDT) Vitamin B-12 1,379(H) 207 - 974 pg/mL [facility] Blood specimen (specimen) 04/22/2017 11:18 AM EDT 04/22/2017 11:25 AM EDT Narrative Resulting Agency Comment Spec In Lab Narda Keita Tiffany RETARDER OPERATOR CHEMISTRY ORDERAB LES Performing Organization Address City/[facility]/ZIP Co de Phone Number [facility] [place] [address] * Vitamin D, 25-Hydroxy (04/22/2017 11:18 AM EDT) 25-OH Vit D Total 48 30 - 100 ng/mL [facility] Comment: Deficient <10 ng/mL Insufficient 10 to 29 ng/mL Sufficient 30 to 100 ng/mL Potential Intoxication >100 ng/mL According to the [place] National Osteoporosis Foundation, Vitamin D concentrations >30 ng/mL are sufficient to protect bone health. ??The National Kidney Foundation has similarly stated that patients with Vitamin D concentrations <30ng/mL should be considered to be insufficient or deficient. http://[employer].com/nkf-guidelines http://[employer].TurningArt/nejm-VitD The [employer] Vitamin D Immunoassay detects both 25-OH Vitamin D2 and 25-OH Vitamin D3, but only a total Vitamin D concentration is reported. Blood specimen (specimen) 04/22/2017 11:18 AM EDT 04/22/2017 1:19 PM EDT Narrative Resulting Agency Comment Spec In Lab Narda Cabelloey RETARDER OPERATOR CHEMISTRY ORDERAB LES Performing Organization Address City/[facility]/ZIP Co de Phone Number [facility] [place] [address] * (ABNORMAL) Ferritin (04/22/2017 11:18 AM EDT) [facility] Ferritin 27(L) 30 - 400 ng/mL [facility] Comment: [place] [facility] [place] caution. Reference ranges for females greater than 50 years of age approach values for men, i.e., 30-400 ng/mL. Blood specimen (specimen) 04/22/2017 11:18 AM EDT 04/22/2017 11:25 AM EDT Narrative Resulting Agency Comment Spec In Lab Narda Allen RETARDER OPERATOR CHEMISTRY ORDERAB LES Performing Organization Address [facility]/ZIP Co de Phone Number [facility] [place] [address] * (ABNORMAL) Iron and TIBC (04/22/2017 11:18 AM EDT) [facility] Iron 55 45 - 160 mcg/dL [facility] TIBC 353 250 - 450 mcg/dL [facility] Iron Saturation 16(L) 20 - 50 % [facility] Blood specimen (specimen) 04/22/2017 11:18 AM EDT 04/22/2017 11:25 AM EDT Narrative Resulting Agency Comment Spec In Lab Narda Allen RETARDER OPERATOR CHEMISTRY ORDERAB LES Performing Organization Address City/[facility]/ZIP Co de Phone Number [facility] [place] [address] * (ABNORMAL) Comprehensive metabolic panel (non-fasting) (04/22/2017 11:18 AM EDT) Glucose Lvl 123 65 - 199 mg/dL [facility] Comment:Diabetes: >=200 mg/d L plus symptoms BUN 23(H) 10 - 20 mg/dL [facility] Creatinine 1.05 0.80 - 1.50 mg/dL [facility] Comment: Please note that the pediatric reference intervals supplied above were [place] [facility] [place] Results from pediatric patients should be interpreted in conjunction to the patient's age, height and muscle mass. Sodium 142 135 - 145 mmol/L [facility] Potassium 4.0 3.5 - 5.0 mmol/L [facility] Comment: Please note: ??Patients with WBC >100,000 may have falsely elevated Potassium levels. ??For accurate Potassium quantification in these patients send serum separator tube (gold top) for subsequent determinations. ??Contact the Clinical Chemistry Laboratory if there are any questions. Chloride 101 98 - 107 mmol/L [facility] CO2 25 22 - 31 mmol/L [facility] Anion Gap 16(H) 5 - 15 mmol/L [facility] Calcium 9.3 8.5 - 10.5 mg/dL [facility] Total Protein 7.4 6.1 - 8.0 gm/dL [facility] Albumin 4.3 3.2 - 5.2 gm/dL [facility] AST 13 0 - 39 unit/L [facility] ALT 20 0 - 55 unit/L [facility] Alk Phos 58 40 - 120 unit/L [facility] Total Bilirubin 0.5 0.2 - 1.3 mg/dL [facility] Estimated GFR >60 >=60 [facility] Comment: This estimated GFR (eGFR) value [...] the following links into your internet browser. [email or web address] Blood specimen (specimen) 04/22/2017 11:18 AM EDT 04/22/2017 11:25 AM EDT Narrative Resulting Agency Comment Spec In Lab Narda Allen RETARDER OPERATOR CHEMISTRY ORDERAB LES [facility] [place] [address] * (ABNORMAL) Hemogram (04/22/2017 11:18 AM EDT) WBC 7.0 4.0 - 9.5 x10(3)/[facility] RBC 4.49(L) 4.58 - 5.54 x10(6)/[facility] Hemoglobin 12.7(L) 13.7 - 16.5 gm/dL [facility] Hematocrit 39.2(L) 40.5 - 48.5 % [facility] MCV 87.3 82.9 - 93.1 [facility] MCH 28.3 27.5 - 32.[address] [facility] MCHC 32.4 32.0 - 35.7 gm/dL [facility] Platelets 194 145 - 357 x10(3)/[facility] RDWSD 48.4(H) 36.0 - 45.0 [facility] RDWCV 15.1(H) 11.4 - 13.8 % [facility] MPV 10.0 7.6 - 12.9 [facility] nRBC % Auto 0.0 % [facility] nRBC Abs Auto 0.000 0.000 - 0.000 x10(3)/[facility] Blood specimen (specimen) 04/22/2017 11:18 AM EDT 04/22/2017 11:25 AM EDT Narrative Resulting Agency Comment Spec In Lab Narda Allen RETARDER OPERATOR HEMATOLOGY ORDERA BLES [facility] [place] [address] documented in this encounter Visit Diagnoses Diagnosis Disorder of iron metabolism Other disorders of iron metabolism Status post bariatric surgery Bariatric surgery status Intestinal malabsorption, unspecified type Essential hypertension Unspecified essential hypertension Obstructive sleep apnea Obstructive sleep apnea (adult) (pediatric) Vitamin D deficiency Unspecified vitamin D deficiency documented in this encounter Care Teams 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
--- OUTSIDE RECORDS SUMMARY | 2024-04-27 14:54 | XMS_ITS | Encounter Summary ---
Author Organization [facility] [place] [address] Care Team Providers Care Credit Clerk Name Role Phone Manolo Castro MD Primary Care Provider [phone] Reason for Visit * Auth/Cert Specialty Diagnoses / Procedures Referred By Sonal dawson Referred To Contact Diagnoses Abdominal pannus Ventral hernia without obstruction or gangrene E65 - abdominal pannus K43.90 - Ventral hernia Proposed admit date of 05/17/2016 Panel 1 w/ Dr. Valencia for cpt code 48899 Panel 2 w/ Dr. Ortega for cpt code 67465 Procedures PRO EXCISE EXCESS SKIN TISSUE, ABDOMEN PRO REPAIR INCISIONAL HERNIA, REDUCIBLE PRO MUSCLE-SKIN FLAP, TRUNK ABDOMINOPLASTY Referral ID Status Reason Start Date Expiration Date Visits Re quested Visits Authorized [id number] 1 1 Encounter Details Date Type Department Care Team (Late st Contact Info) Description 05/17/2016 7:30 AM EDT - 05/17/2016 11:28 AM EDT Surgery [place] [address] Karlene Valencia MD [facility] [place] [address] PANNICULECTOMY (WRVU 17.11) Social History Tobacco Use Types Packs/Day Years [...] Sign Reading Time Taken Comments Blood Pressure 144/93 05/20/2016 8:29 AM EDT Pulse 119 05/17/2016 12:00 PM EDT Temperature 36.7 ??C (98.1 ??F) 05/20/2016 8:29 AM ED T Respiratory Rate 16 05/20/2016 8:29 AM EDT Oxygen Saturation 89% 05/20/2016 8:29 AM EDT Inhaled Oxygen Concentration - - Weight 99.8 kg (220 lb) 05/17/2016 6:40 AM EDT Height 175.3 cm (5' 9) 05/17/2016 6:40 AM EDT Body Mass Index 32.49 05/17/2016 6:40 AM EDT documented in this encounter Discharge Summaries * Tarik Schuster MD - 05/20/2016 8:16 AM EDT PLASTIC SURGERY DISCHARGE SUMMARY Diagnosis on admission: abdominal pannus and ventral hernia History: History obtained through patient interview, review of relevant records, and/or discussion with referring provider. Past Medical History Past Medical History Diagnosis Date ??? Blood disorder ??? Circulatory disease ??? Diabetes Past Surgical History Past Surgical History Procedure Laterality Date ??? Cholecystectomy ??? Vasectomy ??? Tonsillectomy ??? Total knee arthroplasty bilateral ??? Pro upper gi endoscopy, biopsy 12/11/2013 UPPER GASTROINTESTINAL ENDOSCOPY,WITH BIOPSY SINGLE OR MULTIPLE performed by [facility]iffer [facility]at [facility] ??? Pro upper gi endoscopy, diagnostic 12/25/2013 EGD, UPPER GI ENDOSCOPY performed by Wally Pfeiffer MD at [facility] ENDOSCOPY ??? Pro lap, esophagus, other proc 02/08/2014 LAPAROSCOPIC REVISION OF DELROY FUNDOPLASTY performed by Wally Pfeiffer MD at [facility] MAIN OR ??? Pro lap gastric bypass/monica-en-y 02/08/2014 @LAPAROSCOPIC GASTROPLASTY, performed by Wally Pfeiffer MD at [facility] MA[facility] OR ??? Pro upper gi endoscopy, diagnostic 02/08/2014 ENDOSCOPY, UPPER GI, DIAGNOSTIC, WITH OR WITHOUT SPECIMENS performed by Wally Pfeiffer MD at [facility] MA[facility] OR ??? Pro lap, diagnostic abdomen 02/10/2014 LAPAROSCOPY, DIAGNOSTIC, ABDOMEN performed by Wally Pfeiffer MD at [facility] OR ??? Pro excise excess skin tissue, abdomen N/A 05/17/2016 ABDOMINOPLASTY performed by Karlene Valencia MD at [facility] OR ??? Pro repair incisional hernia, reducible N/A 05/17/2016 REPAIR INITIAL INCISIONAL OR VENTRAL HERNIA REDUCIBLE performed by Stephanie Ortega MD at [facility] ??? N/A 05/17/2016 MODIFIER PANNICULECTOMY performed by Karlene Valencia MD at [facility] MA[facility] OR Procedures: 05/17/2016 Surgeon(s) and Role: Panel 1: * Karlene Valencia MD - Primary * Tarik Schuster MD Panel 2: * Stephanie Ortega MD - Primary * Ilya Al MD - Resident-Surgeon Vladimir: Procedure(s): ABDOMINOPLASTY MODIFIER PANNICULECTOMY REPAIR INITIAL INCISIONAL OR VENTRAL HERNIA REDUCIBLE MODIFIER MESH,BARD VENTRIO Hospital Course: The patient tolerated the above procedure well and was admitted post-operatively for routine post-operative care. His hospital course was uncomplicated. he was deemed medically stable for discharge home on POD#3. Prior to discharge his pain was controlled on oral pain meds and he was tolerating a regular diet. Patient with flatus and BM prior to discharge. Physical Exam on d/c: Temp: [36.6 ??C (97.9 ??F)-36.9 ??C (98.4 ??F)] Heart Rate: -- Resp: [16-18] BP: (135-149)/(87-96) SpO2: [93 %-96 %] Intake/Output Summary (Last 24 hours) at 05/20/16 0815 Last data filed at 05/20/16 0622 Gross per 24 hour Intake 1110 ml Output 1660 ml Net -550 ml NAD, A/O Nonlabored, symmetric chest movement INCISION: CDI, no evidence of hematoma/seroma/infection, MONICA x2 SS, mild ecchymosis Lab data: Recent Results (from the past 72 hour(s)) POCT Glucose Result Value Ref Range POC Glucose 185 65 - 199 mg/dL POCT Glucose Result Value Ref Range POC Glucose 186 65 - 199 mg/dL POCT Glucose Result Value Ref Range POC Glucose 172 65 - 199 mg/dL POCT Glucose Result Value Ref Range POC Glucose 178 65 - 199 mg/dL POCT Glucose Result Value Ref Range POC Glucose 137 65 - 199 mg/dL POCT Glucose Result Value Ref Range POC Glucose 125 65 - 199 mg/dL POCT Glucose Result Value Ref Range POC Glucose 173 65 - 199 mg/dL POCT Glucose Result Value Ref Range POC Glucose 134 65 - 199 mg/dL POCT Glucose Result Value Ref Range POC Glucose 140 65 - 199 mg/dL POCT Glucose Result Value Ref Range POC Glucose 120 65 - 199 mg/dL POCT Glucose Result Value Ref Range POC Glucose 131 65 - 199 mg/dL Pending lab data: none Medications: Your Medications Notice Some of the medications listed here do not show instructions, such as how often to take the medication. Ask your doctor or nurse how to use these medications. Specifically ask about this and similar medications: lovastatin (MEVACOR) 20 mg tablet New Medications Dose Details acetaminophen 325 mg Tab Commonly known as: TYLENOL Take 2 tablets by mouth every 6 hours. 650 mg Refills: 0 cephalexin 500 mg Cap Commonly known as: KEFLEX Take 1 capsule by mouth 4 times daily for 7 days. 500 mg Quantity: 28 capsule Refills: 0 docusate sodium 100 mg Cap Commonly known as: COLACE Take 1 capsule by mouth 2 times daily for 10 days. 100 mg Refills: 0 oxyCODONE 5 mg Tab Commonly known as: ROXICODONE Take 1 tablet by mouth every 4 hours as needed for Pain. 5 mg Quantity: 30 tablet Refills: 0 Continued medications, unchanged Dose Details CALCIUM CITRATE WITH D ORAL Take 2 tablets by mouth 2 times daily. 2 tablet Refills: 0 cyanocobalamin 500 mcg Tab Take 500 mcg by mouth 2 times daily. 500 mcg Refills: 0 DILTiazem 240 mg Cdcr Commonly known as: DILACOR XR Take 1 capsule by mouth daily. Take the short acting Diltiazem four times daily until you can swallow pills. Once you can swallow pills, you can start retaking this long acting Diltiazem. 240 mg Refills: 0 lovastatin 20 mg Tab Commonly known as: MEVACOR ?nk?wn!?? Refills: 0 metFORMIN 500 mg Tab Commonly known as: GLUCOPHAGE Take 1,000 mg by mouth 2 times daily (with meals). 1000 mg Refills: 0 MULTI VITAMIN ORAL Take 1 tablet by mouth 2 times daily. 1 tablet Refills: 0 terazosin 2 mg Cap Commonly known as: HYTRIN Take 2 mg by mouth nightly. 2 mg Refills: 0 venlafaxine 75 mg Cp24 Commonly known as: EFFEXOR-XR Take 1 capsule by mouth daily. You will be prescribed a short acting Effexor, take this two times daily while you are still crushing pills. Once you can swallow pills, you can begin taking the long acting Effexor again. 75 mg Refills: 0 warfarin 5 mg Tab Commonly known as: COUMADIN Take 1 tablet by mouth daily. Start February 19, 2014 5 mg Refills: 0 STOPPED Medications amoxicillin 500 mg Cap Commonly known as: AMOXIL PATIENT TO CALL PCP TOMORROW TO DISCUSS COUMADIN MANAGEMENT. Allergies: No Known Allergies Discharge Instructions: Patient Instructions PLASTIC SURGERY DISCHARGE INSTRUCTIONS WOUND CARE: OK to shower. Do not submerge in water until cleared by MD. Keep dressing clean dry and intact. Wear abdominal binder when out of bed. You must avoid sunlight exposure to your incision(s). Do not use ointments on the incisions postoperatively unless instructed by MD. MONICA drains to bulb suction. Record MONICA output daily. Must be in semi-fowlers position when ambulating and in bed. ACTIVITIES: Minimize contact to abdomen. No heavy lifting until seen by MD. No driving or operating heavy machinery when on narcotics. DIET: Slowly advance diet as tolerated to a regular healthy diet. CALL MD IF: Increased pain, numbness, tingling, weakness, swelling, bruising, bleeding, or any other concerningsigns/symptoms FOLLOW UP: Future Appointments and Orders Future Appointments Provider Department Dept Phone 05/29/2016 11:20 AM Terri Mak APRN Plastic Surgery [phone] 06/15/2016 9:30 AM [facility] DX ROOM 4 [facility] Xray [phone] Please go to Rug Cutter Area 3T ([place] Location). 06/15/2016 10:30 AM Pablo Handy PA Orthopaedics [phone] 06/19/2016 11:20 AM Stephanie Ortega MD General Surgery [phone] Future Orders Complete By Expires Referral to Home Health - at DISCHARGE [[id number] CPT(R)] As directed Process Instructions: Scheduling Instructions: Comments: DOCUMENTATION FOR VNA SERVICES (INCLUDING THOSE PATIENTS WITH MEDICARE COVERAGE REQUIRING HOME VNA SERVICES AND/OR HOSPICE SERVICES) PATIENT'S LOCATION: [place] Rueda [address] [place] [address] [address] [facility] [address] (home) Cell: Telephone Information: Computer Engineer's Name: self In discussion with the attending physician, it is certified that this patient is under their care and that they, or a Nurse Practitioner,Clinical Nurse specialist or Physician Piece Work Inspector who is working directly with them, had a face to face encounter that meets the physician face to face encounter requirements with this patient on 05/19/2016 The encounter with the patient was in whole, or in part, for the following medical condition, whichis the primary reason for home health care services: Abdominal pannus In discussion with the provider, it is certified that, based on their findings, the following services are medically necessary for home health services. To provide the following care/treatments with the clinical findings supporting the need for services as follows: HOME CARE ORDERS: RN ORDERS:Assess wound or incision, vital signs, cardiopulmonary status, nutrition, hydration, elimination, meds effectiveness and management; reinforce education re health issues HOME HEALTH CARE AGENCY: [facility]. PHONE: [phone] FAX: [phone] Start of care: 24 hours after discharge FOR MEDICARE ONLY: In discussion with the attending physician, it is certified that the clinical findings support thatthis patient is homebound because absences from home require considerable and taxing effort due to:Pt requires monitoring for signs and symptoms of infection, wound and drain management. Pt will also need to a safety evaluation Please note that any additional orders needs or changes will need to be obtained from this patient's PCP: MANOLO CASTRO MD [address] / [place] [address] All VNA agencies which cover the area of patient's residence have been reviewed, either verbally harry writing, and patient/family have chosen the home health care agency noted Questions: Agency name and contact information: [facility] Patient location post discharge: home What services are requested: Registered Nurse Start date: 05/21/2016 Responsible MD post discharge contact info: Dr Valencia and PCP Demond standard [EQ135 Custom] As directed Process Instructions: Scheduling Instructions: Comments: Eugene [place] [address] [place] [address] (home) Telephone Information: Diagnosis: abdominal pannus with Unsteady gait Patient???s: Hgt: 5' 9 Wgt: 220lbs VENDOR: [facility] Ordering: Front wheel walker Deliver to [facility] hospital room #: 321A Questions: Vendor Name/Contact information: [facility] MEDICATIONS: Your Medications Notice Some of the medications listed here do not show instructions, such as how often to take the medication. Ask your doctor or nurse how to use these medications. Specifically ask about this and similar medications: lovastatin (MEVACOR) 20 mg tablet New Medications Dose Details acetaminophen 325 mg Tab Commonly known as: TYLENOL Take 2 tablets by mouth every 6 hours. 650 mg Refills: 0 cephalexin 500 mg Cap Commonly known as: KEFLEX Take 1 capsule by mouth 4 times daily for 7 days. 500 mg Quantity: 28 capsule Refills: 0 docusate sodium 100 mg Cap Commonly known as: COLACE Take 1 capsule by mouth 2 times daily for 10 days. 100 mg Refills: 0 oxyCODONE 5 mg Tab Commonly known as: ROXICODONE Take 1 tablet by mouth every 4 hours as needed for Pain. 5 mg Quantity: 30 tablet Refills: 0 Continued medications, unchanged Dose Details CALCIUM CITRATE WITH D ORAL Take 2 tablets by mouth 2 times daily. 2 tablet Refills: 0 cyanocobalamin 500 mcg Tab Take 500 mcg by mouth 2 times daily. 500 mcg Refills: 0 DILTiazem 240 mg Cdcr Commonly known as: DILACOR XR Take 1 capsule by mouth daily. Take the short acting Diltiazem four times daily until you can swallow pills. Once you can swallow pills, you can start retaking this long acting Diltiazem. 240 mg Refills: 0 lovastatin 20 mg Tab Commonly known as: MEVACOR ?nk?wn!?? Refills: 0 metFORMIN 500 mg Tab Commonly known as: GLUCOPHAGE Take 1,000 mg by mouth 2 times daily (with meals). 1000 mg Refills: 0 MULTI VITAMIN ORAL Take 1 tablet by mouth 2 times daily. 1 tablet Refills: 0 terazosin 2 mg Cap Commonly known as: HYTRIN Take 2 mg by mouth nightly. 2 mg Refills: 0 venlafaxine 75 mg Cp24 Commonly known as: EFFEXOR-XR Take 1 capsule by mouth daily. You will be prescribed a short acting Effexor, take this two times daily while you are still crushing pills. Once you can swallow pills, you can begin taking the long acting Effexor again. 75 mg Refills: 0 warfarin 5 mg Tab Commonly known as: COUMADIN Take 1 tablet by mouth daily. Start February 19, 2014 5 mg Refills: 0 STOPPED Medications amoxicillin 500 mg Cap Commonly known as: AMOXIL COUMADIN MANAGEMENT PER PCP NARCOTICS: You may be given a prescription for a narcotic medication immediately following your surgery. Narcotics are prescribed for short-term use to help treat your pain. Surgical pain requiring narcotics will usually be greatly decreased 2-3 days after surgery & should be mild to absent by 10-14 days. We will only prescribe a narcotic pain reliever for 2 weeks following your surgery. This will be determined by your surgeon. Narcotics do not reduce inflammation and it is inflammation that is usually a major cause of pain after surgery. Narcotics have many side effects such as constipation, lightheadedness, dizziness, sedation, confusion, nausea and vomiting. Driving and the use of alcohol are not recommended while you are using narcotic pain medications. Non-steroidal anti-inflammatories (NSAIDS) such as aspirin, Aleve and ibuprofen (Advil, Motrin) aremedications that reduce pain and inflammation. If you find your pain is not adequately controlled with the prescribed dose of your narcotic pain medication, NSAIDS may be used 48 hours after surgery with your narcotic to help alleviate the pain caused by inflammation. As you progress through your post-operative period, your pain should decrease and the use of narcotic medications should be less necessary. To reduce your chance of side effects, it is recommended that you save your narcotic medication for nighttime use and switch to NSAIDS or Acetaminophen (Tylenol) during the day. Alternative means of pain relief such as rest and relaxation, positioning, as well as decreasing stimulants such as coffee, tea, soft drinks, and nicotine may also help to alleviate pain. If you continue to experience significant pain 4-5 days after your procedure, it may be necessary to be re-evaluated by your physician. PRESCRIPTION RENEWALS: Renewal requests should be called in to our prescription line at [phone]. Narcotic renewals may be requested from 8am-4pm Saturday through Saturday. Due to patient safety, narcotic renewals will not be honored after hours or on weekends. It is best to make your request 2-3 days before you run out of your medication as it will take at least 24 hours for physician approval and nurse follow-up. Note that certain prescriptions, such as Percocet, Oxycodone, Vicodin, & Hydrocodone can not becalled in to a pharmacy and must be picked up by the patient. CONTACT INFORMATION: During office hours: Saturday through Saturday 8 am to 5 pm Call [phone] On weekends or after hours: Call [phone] and ask the horizontal boring mill operator to page the Plastic Surgery Resident behavioral modification assistant. Follow-up plan: Future Appointments and Orders Future Appointments Provider Department Dept Phone 05/29/2016 11:20 AM Terri Mak APRN Plastic Surgery [phone] 06/15/2016 9:30 AM [facility] DX ROOM 4 [facility] X[facility] [phone] Please go to Rug Cutter Area 3T ([place] Location). 06/15/2016 10:30 AM Pablo Handy PA Orthopaedics [phone] 06/19/2016 11:20 AM Stephanie Ortega MD General Surgery [phone] Future Orders Complete By Expires Referral to Home Health - at DISCHARGE [[id number] CPT(R)] As directed Process Instructions: Scheduling Instructions: Comments: DOCUMENTATION FOR VNA SERVICES (INCLUDING THOSE PATIENTS WITH MEDICARE COVERAGE REQUIRING HOME VNA SERVICES AND/OR HOSPICE SERVICES) PATIENT'S LOCATION: [place] Lopez [facility] [address] [address] (home) Cell: Telephone Information: Computer Engineer's Name: self In discussion with the attending physician, it is certified that this patient is under their care and that they, or a Nurse Practitioner,Clinical Nurse specialist or Physician Piece Work Inspector who is working directly with them, had a face to face encounter that meets the physician face to face encounter requirements with this patient on 05/19/2016 The encounter with the patient was in whole, or in part, for the following medical condition, whichis the primary reason for home health care services: Abdominal pannus In discussion with the provider, it is certified that, based on their findings, the following services are medically necessary for home health services. To provide the following care/treatments with the clinical findings supporting the need for services as follows: HOME CARE ORDERS: RN ORDERS:Assess wound or incision, vital signs, cardiopulmonary status, nutrition, hydration, elimination, meds effectiveness and management; reinforce education re health issues HOME HEALTH CARE AGENCY: [facility] PHONE: [phone] FAX: [phone] Start of care: 24 hours after discharge FOR MEDICARE ONLY: In discussion with the attending physician, it is certified that the clinical findings support thatthis patient is homebound because absences from home require considerable and taxing effort due to:Pt requires monitoring for signs and symptoms of infection, wound and drain management. Pt will also need to a safety evaluation Please note that any additional orders needs or changes will need to be obtained from this patient's PCP: MANOLO CASTRO MD [facility] [address] [facility] [address] All [facility] agencies which cover the area of patient's residence have been reviewed, either verbally harry writing, and patient/family have chosen the home health care agency noted Questions: Agency name and contact information: [facility] Patient location post discharge: home What services are requested: Registered Nurse Start date: 05/21/2016 Responsible MD post discharge contact info: Dr Valencia and PCP Demond standard [EQ135 Custom] As directed Process Instructions: Scheduling Instructions: Comments: [place] Rueda [address] [facility] [address] (home) Telephone Information: Diagnosis: abdominal pannus with Unsteady gait Patient???s: Hgt: 5' 9 Wgt: 220lbs VENDOR: [employer] Ordering: Front wheel walker Deliver to pt's hospital room #: 321A Questions: Vendor Name/Contact information: [facility] VNA: Discharge Procedure Orders Referral to Home Health - at DISCHARGE Order Comments: DOCUMENTATION FOR VNA SERVICES (INCLUDING THOSE PATIENTS WITH MEDICARE COVERAGE REQUIRING HOME VNA SERVICES AND/OR HOSPICE SERVICES) PATIENT'S LOCATION: Eugene Rueda [address] [place] [address] [address] [facility] [address] (home) Cell: Telephone Information: Computer Engineer's Name: self In discussion with the attending physician, it is certified that this patient is under their care and that they, or a Nurse Practitioner,Clinical Nurse specialist or Physician Piece Work Inspector who is working directly with them, had a face to face encounter that meets the physician face to face encounter requirements with this patient on 05/19/2016 The encounter with the patient was in whole, or in part, for the following medical condition, whichis the primary reason for home health care services: Abdominal pannus In discussion with the provider, it is certified that, based on their findings, the following services are medically necessary for home health services. To provide the following care/treatments with the clinical findings supporting the need for services as follows: HOME CARE ORDERS: RN ORDERS:Assess wound or incision, vital signs, cardiopulmonary status, nutrition, hydration, elimination, meds effectiveness and management; reinforce education re health issues HOME HEALTH CARE AGENCY: [facility] PHONE: [phone] FAX: [phone] Start of care: 24 hours after discharge FOR MEDICARE ONLY: In discussion with the attending physician, it is certified that the clinical findings support thatthis patient is homebound because absences from home require considerable and taxing effort due to:Pt requires monitoring for signs and symptoms of infection, wound and drain management. Pt will also need to a safety evaluation Please note that any additional orders needs or changes will need to be obtained from this patient's PCP: MANOLO CASTRO MD [address] / [place] [address] All VNA agencies which cover the area of patient's residence have been reviewed, either verbally harry writing, and patient/family have chosen the home health care agency noted Order Specific Question Answer Comments Agency name and contact information [facility] Patient location post discharge home What services are requested Registered Nurse Start date 05/21/2016 Responsible MD post discharge contact info Dr Valencia and PCP General Instructions None documented in this encounter Discharge Instructions * Patient Instructions* Tarki Schuster MD - 05/18/2016 2:40 PM EDT PLASTIC SURGERY DISCHARGE INSTRUCTIONS WOUND CARE: OK to shower. Do not submerge in water until cleared by MD. Keep dressing clean dry and intact. Wear abdominal binder when out of bed. You must avoid sunlight exposure to your incision(s). Do not use ointments on the incisions postoperatively unless instructed by MD. MONICA drains to bulb suction. Record MONICA output daily. Must be in semi-fowlers position when ambulating and in bed. ACTIVITIES: Minimize contact to abdomen. No heavy lifting until seen by MD. No driving or operating heavy machinery when on narcotics. DIET: Slowly advance diet as tolerated to a regular healthy diet. CALL MD IF: Increased pain, numbness, tingling, weakness, swelling, bruising, bleeding, or any other concerningsigns/symptoms FOLLOW UP: Future Appointments and Orders Future Appointments Provider Department Dept Phone 05/29/2016 11:20 AM Terri Mak APRN Plastic Surgery [phone] 06/15/2016 9:30 AM [facility] DX ROOM 4 [facility] Xray [phone] Please go to Rug Cutter Area 3T ([place] Location). 06/15/2016 10:30 AM Pablo Handy PA Orthopaedics [phone] 06/19/2016 11:20 AM Stephanie Ortega MD General Surgery [phone] Future Orders Complete By Expires Referral to Home Health - at DISCHARGE [[id number] CPT(R)] As directed Process Instructions: Scheduling Instructions: Comments: DOCUMENTATION FOR VNA SERVICES (INCLUDING THOSE PATIENTS WITH MEDICARE COVERAGE REQUIRING HOME VNA SERVICES AND/OR HOSPICE SERVICES) PATIENT'S LOCATION: Eugene Ninonigel [address] [place] [address] [address] (home) Cell: Telephone Information: Computer Engineer's Name: self In discussion with the attending physician, it is certified that this patient is under their care and that they, or a Nurse Practitioner,Clinical Nurse specialist or Physician Piece Work Inspector who is working directly with them, had a face to face encounter that meets the physician face to face encounter requirements with this patient on 05/19/2016 The encounter with the patient was in whole, or in part, for the following medical condition, whichis the primary reason for home health care services: Abdominal pannus In discussion with the provider, it is certified that, based on their findings, the following services are medically necessary for home health services. To provide the following care/treatments with the clinical findings supporting the need for services as follows: HOME CARE ORDERS: RN ORDERS:Assess wound or incision, vital signs, cardiopulmonary status, nutrition, hydration, elimination, meds effectiveness and management; reinforce education re health issues HOME HEALTH CARE AGENCY: [facility] PHONE: [phone] FAX: [phone] Start of care: 24 hours after discharge FOR MEDICARE ONLY: In discussion with the attending physician, it is certified that the clinical findings support thatthis patient is homebound because absences from home require considerable and taxing effort due to:Pt requires monitoring for signs and symptoms of infection, wound and drain management. Pt will also need to a safety evaluation Please note that any additional orders needs or changes will need to be obtained from this patient's PCP: MANOLO CASTRO MD [address] / [facility] [address] All A agencies which cover the area of patient's residence have been reviewed, either verbally harry writing, and patient/family have chosen the home health care agency noted Questions: Agency name and contact information: [facility] Patient location post discharge: home What services are requested: Registered Nurse Start date: 05/21/2016 Responsible MD post discharge contact info: Dr Valencia and PCP Demond standard [EQ135 Custom] As directed Process Instructions: Scheduling Instructions: Comments: Eugene Rueda [address] [place] [phone] (home) Telephone Information: Diagnosis: abdominal pannus with Unsteady gait Patient???s: Hgt: 5' 9 Wgt: 220lbs VENDOR: [facility] Ordering: Front wheel walker Deliver to [facility] room #: 321A Questions: Vendor Name/Contact information: [facility] MEDICATIONS: Your Medications Notice Some of the medications listed here do not show instructions, such as how often to take the medication. Ask your doctor or nurse how to use these medications. Specifically ask about this and similar medications: lovastatin (MEVACOR) 20 mg tablet New Medications Dose Details acetaminophen 325 mg Tab Commonly known as: TYLENOL Take 2 tablets by mouth every 6 hours. 650 mg Refills: 0 cephalexin 500 mg Cap Commonly known as: KEFLEX Take 1 capsule by mouth 4 times daily for 7 days. 500 mg Quantity: 28 capsule Refills: 0 docusate sodium 100 mg Cap Commonly known as: COLACE Take 1 capsule by mouth 2 times daily for 10 days. 100 mg Refills: 0 oxyCODONE 5 mg Tab Commonly known as: ROXICODONE Take 1 tablet by mouth every 4 hours as needed for Pain. 5 mg Quantity: 30 tablet Refills: 0 Continued medications, unchanged Dose Details CALCIUM CITRATE WITH D ORAL Take 2 tablets by mouth 2 times daily. 2 tablet Refills: 0 cyanocobalamin 500 mcg Tab Take 500 mcg by mouth 2 times daily. 500 mcg Refills: 0 DILTiazem 240 mg Cdcr Commonly known as: DILACOR XR Take 1 capsule by mouth daily. Take the short acting Diltiazem four times daily until you can swallow pills. Once you can swallow pills, you can start retaking this long acting Diltiazem. 240 mg Refills: 0 lovastatin 20 mg Tab Commonly known as: MEVACOR ?nk?wn!?? Refills: 0 metFORMIN 500 mg Tab Commonly known as: GLUCOPHAGE Take 1,000 mg by mouth 2 times daily (with meals). 1000 mg Refills: 0 MULTI VITAMIN ORAL Take 1 tablet by mouth 2 times daily. 1 tablet Refills: 0 terazosin 2 mg Cap Commonly known as: HYTRIN Take 2 mg by mouth nightly. 2 mg Refills: 0 venlafaxine 75 mg Cp24 Commonly known as: EFFEXOR-XR Take 1 capsule by mouth daily. You will be prescribed a short acting Effexor, take this two times daily while you are still crushing pills. Once you can swallow pills, you can begin taking the long acting Effexor again. 75 mg Refills: 0 warfarin 5 mg Tab Commonly known as: COUMADIN Take 1 tablet by mouth daily. Start February 19, 2014 5 mg Refills: 0 STOPPED Medications amoxicillin 500 mg Cap Commonly known as: AMOXIL COUMADIN MANAGEMENT PER PCP NARCOTICS: You may be given a prescription for a narcotic medication immediately following your surgery. Narcotics are prescribed for short-term use to help treat your pain. Surgical pain requiring narcotics will usually be greatly decreased 2-3 days after surgery & should be mild to absent by 10-14 days. We will only prescribe a narcotic pain reliever for 2 weeks following your surgery. This will be determined by your surgeon. Narcotics do not reduce inflammation and it is inflammation that is usually a major cause of pain after surgery. Narcotics have many side effects such as constipation, lightheadedness, dizziness, sedation, confusion, nausea and vomiting. Driving and the use of alcohol are not recommended while you are using narcotic pain medications. Non-steroidal anti-inflammatories (NSAIDS) such as aspirin, Aleve and ibuprofen (Advil, Motrin) aremedications that reduce pain and inflammation. If you find your pain is not adequately controlled with the prescribed dose of your narcotic pain medication, NSAIDS may be used 48 hours after surgery with your narcotic to help alleviate the pain caused by inflammation. As you progress through your post-operative period, your pain should decrease and the use of narcotic medications should be less necessary. To reduce your chance of side effects, it is recommended that you save your narcotic medication for nighttime use and switch to NSAIDS or Acetaminophen (Tylenol) during the day. Alternative means of pain relief such as rest and relaxation, positioning, as well as decreasing stimulants such as coffee, tea, soft drinks, and nicotine may also help to alleviate pain. If you continue to experience significant pain 4-5 days after your procedure, it may be necessary to be re-evaluated by your physician. PRESCRIPTION RENEWALS: Renewal requests should be called in to our prescription line at [phone]. Narcotic renewals may be requested from 8am-4pm Saturday through Saturday. Due to patient safety, narcotic renewals will not be honored after hours or on weekends. It is best to make your request 2-3 days before you run out of your medication as it will take at least 24 hours for physician approval and nurse follow-up. Note that certain prescriptions, such as Percocet, Oxycodone, Vicodin, & Hydrocodone can not becalled in to a pharmacy and must be picked up by the patient. CONTACT INFORMATION: During office hours: Saturday through Saturday 8 am to 5 pm Call [phone] On weekends or after hours: Call [phone] and ask the horizontal boring mill operator to page the Plastic Surgery Resident behavioral modification assistant. documented in this encounter Medications at Time [...] nightly. lovastatin (MEVACOR) 20 mg tablet 04/24/2010 docusate sodium (COLACE) 100 mg Capsule Take 1 capsule by mouth 2 times daily for 10 days. 05/18/2016 05/28/2016 cephalexin (KEFLEX) 500 mg Capsule Take 1 capsule by mouth 4 times daily for 7 days. 28 capsule 05/18/2016 05/25/2016 acetaminophen (TYLENOL) 325 mg Tablet Take 2 tablets by mouth every 6 hours. 05/18/2016 06/27/2016 oxyCODONE (ROXICODONE) 5 mg Tablet Take 1 tablet by mouth every 4 hours as needed for Pain. 30 tablet 05/18/2016 05/29/2016 cyanocobalamin 500 mcg Tablet Take 500 mcg by mouth 2 times daily. 06/27/2016 warfarin (COUMADIN) 5 mg tablet Take 1 [...] meals). 03/25/2019 documented as of this encounter Progress Notes * Tatianna Pickens RN - 05/20/2016 10:58 AM EDT Patient discharged to home with VNA services. IV removed, site benign. My assessment remains unchanged from my previous assessment. Patient denies chest pain and shortness of breath. Discussed pain management with patient, pain tolerable. Patient medicated prior to discharge. Patient has all belongings. Patient received discharge summary and prescriptions. These were reviewed. All questions answered. Patient encouraged to call with questions or concerns. Patient discharged to home with family. Discharge Summary was faxed, RN called report to VNA. * Ilya Al MD - 05/20/2016 7:45 AM EDT General Surgery Inpatient Progress Note ID: Eugene Rueda is a 65 y.o. male s/p ventral. Now 3 Days Post-Op. 24hr events: ?? RUBY Subjective: no complaints this AM, denies n/v/cp/sob, kept for one more day because of distended abdomen and no BM post surgery. But had a BM last night. O: Last value Range last 24hrs Temperature Temp: 36.8 ??C (98.2 ??F) Temp: [36.6 ??C (97.9 ??F)-36.9 ??C (98.4 ??F)] Heart Rate Heart Rate: 119 Heart Rate: -- Blood Pressure BP: (!) 149/96 BP: (135-149)/(87-96) Respiratory Rate Resp: 18 Resp: [16-18] SpO2 SpO2: 96 % SpO2: [93 %-96 %] Body mass index is 32.49 kg/(m^2). 05/19 0701 - 05/20 0700 In: 1460 [P.O.:1360] Out: 1989 [Urine:1700] Physical Exam: General: NAD, resting comfortably, pleasant, conversant HEENT: PERRL, anicteric sclerae CVS: RRR, elevated BP Pulm: CTAB Abd: soft, nontender, non-distended : Voids Skin: warm, dry Ext: no c/c/e, cap refill <2sec Neuro: CN 2-12 grossly intact, nonfocal,moving all four extremities spontaneously No results for input(s): WBC, HGB, HCT, PLATELET, PT, INR, PTT in the last 72 hours. No results for input(s): NA, K, CL, CO2, BUN, CREATININE, GLUCOSE, CALCIUM, MAGNESIUM, PHOS in the last 72 hours. ASSESSMENT: Eugene Rueda is a 65 y.o. male s/p ventral hernia. Now 3 Days Post-Op PLAN: -Dc planing- possible home today Ilya Al MD * Dianelys Farrell RN - 05/20/2016 6:47 AM EDT 3 [place] Telemetry Note Diagnosis r/t telemetry: Afib Subjective: Denies SOB, CP, N/V Objective: Appears comfortable. BP elevated. HR irreg. Last value Range last 24 hrs Temperature Temp: 36.8 ??C (98.2 ??F) Temp: [36.6 ??C (97.9 ??F)-36.9 ??C (98.4 ??F)] Heart Rate Heart Rate: 119 Heart Rate: -- Blood Pressure BP: (!) 149/96 BP: (135-149)/(85-96) Respiratory Rate Resp: 18 Resp: [16-18] SpO2 SpO2: 96 % SpO2: [93 %-96 %] Assessment: Per telemetry strip: Afib; occasional single m/f PVCs. HR 80-130 Plan: Continue remote cardiac monitoring, assess hemodynamic tolerance of dysrhythmia. * Tarik Schuster MD - 05/19/2016 8:28 AM EDT PLASTIC SURGERY INPATIENT PROGRESS NOTE ID: Eugene Rueda is a 65 y.o. male patient s/p panniculectomy and rectus diastasis repair POD 2. S: No events overnight. No complaints. Pain controlled. Tolerating diet. No nausea/emesis. No flatus. Ambulating. O: Temp: [36.4 ??C (97.5 ??F)-36.8 ??C (98.2 ??F)] Resp: [16-18] BP: (114-139)/(74-85) Intake/Output Summary (Last 24 hours) at 05/19/16 0828 Last data filed at 05/19/16 0550 Gross per 24 hour Intake 2244 ml Output 2110 ml Net 134 ml NAD, A/O Nonlabored, symmetric chest movement INCISION: CDI, no evidence of hematoma/seroma/infection, MONICA x2 to bulb suction and SS Recent Results (from the past 24 hour(s)) POCT Glucose Result Value Ref Range POC Glucose 137 65 - 199 mg/dL POCT Glucose Result Value Ref Range POC Glucose 125 65 - 199 mg/dL POCT Glucose Result Value Ref Range POC Glucose 173 65 - 199 mg/dL POCT Glucose Result Value Ref Range POC Glucose 134 65 - 199 mg/dL A/P: Eugene Rueda is a 65 y.o. male patient s/p panniculectomy and rectus diastasis repair POD2. Doing well post op. On regular diet. No flatus yet. Continue Ancef and lovenox. OOB and ambulation. PT consulted. Continue MONICA drains. Abdominal binder when OOB. Discharge pending return of bowel function. Tarik Schuster MD Plastic Surgery Resident, PGY-7 * Ilya Al MD - 05/19/2016 6:03 AM EDT General Surgery Inpatient Progress Note ID: Eugene Rueda is a 65 y.o. male s/p abdominoplasty. Now 2 Days Post-Op. 24hr events: ?? RUBY Subjective: no complaints this AM, denies n/v/cp/sob O: Last value Range last 24hrs Temperature Temp: 36.5 ??C (97.7 ??F) Temp: [36.4 ??C (97.5 ??F)-36.5 ??C (97.7 ??F)] Heart Rate Heart Rate: 119 Heart Rate: -- Blood Pressure BP: 114/75 BP: (114-130)/(74-78) Respiratory Rate Resp: 16 Resp: [16-18] SpO2 SpO2: 94 % SpO2: [92 %-95 %] Body mass index is 32.49 kg/(m^2). 05/18 0701 - 05/19 0700 In: 2811 [P.O.:0; I.V.:621] Out: 2109 [Urine:1875] Physical Exam: General: NAD, resting comfortably, pleasant, conversant HEENT: PERRL, anicteric sclerae CVS: RRR Pulm: CTAB Abd: soft, ATTP, non-distended Skin: warm, dry Ext: no c/c/e, cap refill <2sec Neuro: CN 2-12 grossly intact, nonfocal,moving all four extremities spontaneously Recent Labs 05/17/16 0556 PT 14.6 INR 1.1 No results for input(s): NA, K, CL, CO2, BUN, CREATININE, GLUCOSE, CALCIUM, MAGNESIUM, PHOS in the last 72 hours. ASSESSMENT: Eugene Rueda is a 65 y.o. male s/p abdominoplasty. Now 2 Days Post-Op PLAN: Pain well controled, tolerating PO, voiding. Stable for home today Ilya Al MD * Ilya Al MD - 05/18/2016 12:56 PM EDT General Surgery Inpatient Progress Note ID: Eugene Rueda is a 65 y.o. male s/p Ventral hernia repair and abdominoplasty. Now 1 Day Post-Op. 24hr events: ?? RUBY Subjective: no complaints this AM, denies n/v/cp/sob O: Last value Range last 24hrs Temperature Temp: 36.5 ??C (97.7 ??F) Temp: [36.3 ??C (97.3 ??F)-36.7 ??C (98.1 ??F)] Heart Rate Heart Rate: 119 Heart Rate: -- Blood Pressure BP: 125/74 BP: (117-142)/(74-100) Respiratory Rate Resp: 16 Resp: [16-20] SpO2 SpO2: 93 % SpO2: [93 %-96 %] Body mass index is 32.49 kg/(m^2). 05/17 0701 - 05/18 0700 In: 1781 [P.O.:120; I.V.:1661] Out: 965 [Urine:775] Physical Exam: General: NAD, resting comfortably, pleasant, conversant HEENT: PERRL, anicteric sclerae CVS: RRR Pulm: CTAB Abd: soft, ATTP, non-distended Skin: warm, dry Ext: no c/c/e, cap refill <2sec Neuro: CN 2-12 grossly intact, nonfocal,moving all four extremities spontaneously Recent Labs 05/17/16 0556 PT 14.6 INR 1.1 No results for input(s): NA, K, CL, CO2, BUN, CREATININE, GLUCOSE, CALCIUM, MAGNESIUM, PHOS in the last 72 hours. ASSESSMENT: Eugene Rueda is a 65 y.o. male s/p ventral repair and abdominoplasty. Now 1 Day Post-Op PLAN: NEURO: Pain well controlled, wound looks good, and patient is doing well. From our stand point, OK to dc patient when cleared by plastic. Ilya Al MD * Milton Vu - 05/18/2016 10:03 AM EDT PLASTIC SURGERY INPATIENT PROGRESS NOTE ID: Eugene Rueda is a 65 y.o. male POD1 s/p abdominoplasty and ventral hernia repair. 24/S: No issues overnight. Patient without c/o. Pain well controlled. Patient taking liquids by mouth but not yet food. O: Temp: [36.3 ??C (97.3 ??F)-37.1 ??C (98.8 ??F)] Heart Rate: [92-122] Resp: [12-20] BP: (117-159)/(74-109) Intake/Output Summary (Last 24 hours) at 05/18/16 1003 Last data filed at 05/18/16 0800 Gross per 24 hour Intake 1848 ml Output 825 ml Net 1023 ml Lab Results Component Value Date NA 143 12/08/2015 K 4.4 12/08/2015 CL 105 12/08/2015 CO2 22 12/08/2015 BUN 18 12/08/2015 CREATININE 1.20 12/08/2015 GLUCOSE 146 12/08/2015 GLUCFASTING 176 (H) 02/09/2014 CALCIUM 8.9 12/08/2015 Lab Results Component Value Date WBC 7.6 12/08/2015 HGB 13.0 (L) 12/08/2015 HCT 38.4 (L) 12/08/2015 MCV 88.3 12/08/2015 PLATELET 199 12/08/2015 Lab Results Component Value Date INR 1.1 05/17/2016 GEN: NAD, A/O x 3 LUNGS: Nonlabored, symmetric chest movement ABD: soft, NT/ND benign EXTREM: no c/c/e INCISION: c/d/i, no evidence of hematoma/seroma/infection A/P: Eugene Rueda is a 65 y.o. male patient POD1 s/p abdominoplasty and ventral hernia repair. - Continue Ancef - Encourage PO food intake - Continue abdominal binder - Pain control - Continue Lovenox for DVT Px Milton Vu MD 05/18/2016 Pager: [phone] * Kenia Sarabia RN - 05/17/2016 1:15 PM EDT Patient [facility] bed from PACU s/p abdominoplasty/paniculectomy. Patient AOx 4, HR irregular, lung sounds clear. Patient denies chest pain and SOB. Hypoactive bowel sounds, lbm 8/10, pt DTV [id number]. Denies numbness and tingling. Dressing to abdomen clean dry and intact. Pain 8/10 at this time, oxycodone controlling pain. Patient educated on pain management. Patient oriented to room, call zuniga to bedside, please see flowsheet for full assessment. Will continue to monitor. 1330: MD Vu paged regarding patient's afib. Requested tele. MD currently in OR. Awaiting tele orders. * Aline Mcclain RN - 05/17/2016 11:04 AM EDT 1032 Pt arrived pacu, monitor attached, vss, no pain, orders recv. Tyshawn thornton prior to sending to room. 1105 Dr [place]ura to bedside, pt states no visitors to see him documented in this encounter H&P Notes * Ilya Al MD - 05/17/2016 7:16 AM EDT [facility] Department of General Surgery Interval History and Physical HPI: Mr Rueda is a 65-year-old gentleman whom I was asked to see in consultation at the request of Dr. Valencia regarding a ventral hernia. He is a gentleman who had a previous Delroy fundoplication, subsequent went on to have revision of his fundoplication, and then a gastric bypass back in 2013. He has had ongoing issues with infections and skin breakdown under his pannus and is here and has sought panniculectomy to manage this. He does have a ventral hernia in the setting of what appears to be a diastasis, and I was asked to see him regarding this hernia to coordinate repair at the same time as his panniculectomy In summary, Eugene Rueda presents today for Ventral hernia repair and panniculectomy . There have been no changes to his history since his last visit on 03/22/2016. Vitals: 05/17/16 0628 BP: 133/83 Pulse: 96 Resp: 18 Temp: 36.4 ??C (97.5 ??F) Gen: INAD CV: RRR Pulm: CTAB Abd: S/NT/ND Ext: No edema A/P: 65 y.o. male who presents today with ventral hernia . Plan for Ventral hernia repair andpanniculectomy . Consent signed and dated and placed in chart Perioperative antibiotic scheduled. Ok to proceed with scheduled operation. Nsehnfannie Al MD 05/17/2016 * Tarik Schuster MD - 05/17/2016 6:42 AM EDT 24 HOUR INTERVAL H&P S: Eugene Rueda's condition unchanged since H&P originally performed Denies any new ED visits, hospitalizations, trauma, or new events. Has been overall doing well. O: Patient Vitals for the past 24 hrs: BP Temp Temp src Pulse Resp SpO2 Height Weight 05/17/16 0640 - - - - - - 175.3 cm (5' 9) 99.8 kg (220 lb) 05/17/16 0628 133/83 36.4 ??C (97.5 ??F) Temporal 96 18 96 % - - NAD Non-labored Reg rate Site marked AP: 65 y.o. male with abdominal pannus and ventral hernia. - After extensive discussion of the risks, benefits, and alteratives of surgical intervention, the patient consented to proceed with surgery. - IV antibiotics ordered - Proceed to OR for: Procedure(s): ABDOMINOPLASTY MODIFIER PANNICULECTOMY FLAP, MYOCUTANEOUS OR FASCIOCUTANEOUS, TRUNK REPAIR INITIAL INCISIONAL OR VENTRAL HERNIA REDUCIBLE MODIFIER MESH,BARD VENTRALEX ST Tarik Dawson. MD [facility] Plastic Surgery Resident, PGY-7 documented in this encounter Miscellaneous Notes * Plan of Care - Dianelys Farrell RN - 05/20/2016 4:24 AM EDT Problem: General Plan of Care Goal: Plan of Care Review 05/20/16 0418 Plan of Care Review Plan of Care Outcome Status ongoing (interventions implemented as appropriate) Progress improving Coping/Psychosocial Response Interventions Plan of Care Reviewed with patient Goal: Individualization and Mutuality 05/17/16 2145 05/18/167 Individualization Individualize the Plan of Care: -- Educated on MONICA drains Patient Specific Preferences -- none Patient Specific Goals -- pain control/maintenance Mutuality/Individual Preferences What anxieties, fears or concerns do you have about your health or care? none -- What questions do you have about your health or care? none -- What information would help us give you more personalized care? none -- OUTCOME EVALUATION NOTE: OUTCOME SUMMARY: Pt slept between care overnight. Elected to sleep in recliner. Denies N/V, SOB, CP. Abdominal incision WDL. Abdominal binder in place - pt tolerating well. MONICA drains x 2 patent and draining sm-mod amt of ss fluid. Pt was given Fleets enema after several other bowel interventions failed. Enema produced moderate BM. Pt reports great relief after BM. Last recorded vital signs: Last value Temperature Temp: 36.7 ??C (98.1 ??F) Heart Rate Heart Rate: 119 Blood Pressure BP: 135/89 Respiratory Rate Resp: 17 SpO2 SpO2: 94 % PLAN MOVING FORWARD: Pain control Mobilize D/C to home today? INDIVIDUALIZED FALL PREVENTION INTERVENTIONS: Patient-specific fall risk factors per assessment: [current deficits]: Recent surgery; medications Fall prevention interventions: Pt educated on personal risks to fall; call zuniga w/in reach at all times Assistance [level of assistance required for transfers and ambulation]: Stand-by assist to ambulate. Repositions self independently. Supervision [direct monitoring required during toileting and ADLs]: Pt requires minimal assist with ADLs. Surveillance [continuous indirect monitoring]: nurse Jeremy knowledge exchange, purposeful rounding. CPG GOAL OUTCOME EVALUATION: Goal: Fall Prevention-Safe Patient Handling 05/19/16 0800 05/19/16 1706 05/19/16 2107 Safety Interventions Safety Precautions/Fall Reduction -- -- commode/urinal/bedpan at bedside;environmental modification;fall reduction program maintained;lighting adjusted for task/safety;low bed;nonskid shoes/slippers when out of bed Musculoskeletal Interventions Activity/Level of Assistance -- up in melton -- Positioning -- -- independent;up in chair Self-Care Promotion -- -- assistance provided to decrease frustration;independence encouraged whileproviding assistance Mathews Fall Risk History of Falling -- -- 0 Secondary Diagnosis -- -- 15 Ambulatory Aids -- -- 0 Intravenous Therapy/Heparin/Saline Lock -- -- 20 Gait/Transferring -- -- 10 Mental Status -- -- 0 Score -- -- 45 Activity and Safety Assistive Device Front wheel walker -- -- OTHER Mathews Fall Risk -- -- High Goal: Infection Control 05/19/162102 Safety Interventions Isolation Precautions standard precautions maintained Infection Prevention rest/sleep promoted;environmental surveillance;bronchial hygiene promoted;blood glucose management Coping/Psychosocial Response Interventions Counseling reassurance provided Goal: Discharge Needs Assessment 05/18/1631605/20/16417 Discharge Needs Assessment Concerns to be Addressed no discharge needs identified -- Concerns Comments None -- Readmission Within the Last 30 Days no previous admission in last 30 days -- Discharge Planning Comments pt D/C to home -- Self-Care Equipment Currently Used at Home none -- Living Environment Transportation Available -- car;family or friend will provide Problem: Perioperative Period (Adult, Obstetrics) Goal: Signs and symptoms of listed potential problems will be absent or manageable (reference (Perioperative Period (Adult, Obstetrics)) CPG) 05/20/16417 Perioperative Period Problems Assessed (Perioperative Period) all Problems Present (Perioperative Period) acute pain Problem: Pain, Acute (Adult, Obstetrics) Goal: Identify Signs and Symptoms and Related Risk Factors Signs and symptoms and related risk factors are identified upon initiation of Human Response Clinical Practice Guideline (CPG) 05/20/16417 Pain, Acute Related Risk Factors (Acute Pain) surgery Goal: Acceptable Pain Control/Comfort Level Patient will demonstrate the desired outcomes. 05/20/16417 Pain, Acute (Adult, Obstetrics) Acceptable Pain Control/Comfort Level making progress toward outcome * Initial Assessments - Jean-Paul Hill, PT - 05/19/2016 11:04 AM EDT Physical Therapy Initial Evaluation [facility] Patient profile: Eugene Rueda is a 65 y.o. male patient of Karlene Chowdary, admitted on 05/17/2016 , abdominoplasty, panniculectomy, abdominal hernia repair with mesh. Post op course uncomplicated. Patient Active Problem List Diagnosis Code ??? Hip arthritis M19.90 ??? S/P knee replacement Z96.659 ??? HTN (hypertension) I10 ??? Atrial fibrillation I48.91 ??? PVD (peripheral vascular disease) I73.9 ??? DM (diabetes mellitus) E11.9 ??? CARLOS A (obstructive sleep apnea) G47.33 ??? Type 2 diabetes mellitus E11.9 ??? GERD (gastroesophageal reflux disease) K21.9 ??? Varicose veins I86.8 ??? Carpal tunnel syndrome G56.00 ??? Asbestosis(501) J61 ??? Pterygium H11.009 ??? Fatigue R53.83 ??? Depression F32.9 ??? Decreased hearing, wears hearing aid right ear H91.90 ??? Hyperlipidemia E78.5 ??? Chronic anticoagulation Z79.01 ??? History of renal stone ~1980s Z87.442 ??? Preoperative Class II obesity, S/P gastric bypass February 2014 E66.9 ??? 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 Ventral hernia without obstruction or gangrene K43.9 Past Surgical History Procedure Laterality Date ??? Cholecystectomy ??? Vasectomy ??? Tonsillectomy ??? Total knee arthroplasty bilateral ??? Pro upper gi endoscopy, biopsy 12/11/2013 UPPER GASTROINTESTINAL ENDOSCOPY,WITH BIOPSY SINGLE OR MULTIPLE performed by [facility]iffer [facility]at [facility] ??? Pro upper gi endoscopy, diagnostic 12/25/2013 EGD, UPPER GI ENDOSCOPY performed by Wally Pfeiffer MD at [facility] ??? Pro lap, esophagus, other proc 02/08/2014 LAPAROSCOPIC REVISION OF DELROY FUNDOPLASTY performed by Wally Pfeiffer MD at [facility] ??? Pro lap gastric bypass/monica-en-y 02/08/2014 @LAPAROSCOPIC GASTROPLASTY, performed by Wally Pfeiffer MD at [facility] ??? Pro upper gi endoscopy, diagnostic 02/08/2014 ENDOSCOPY, UPPER GI, DIAGNOSTIC, WITH OR WITHOUT SPECIMENS performed by Wally Pfeiffer MD at [facility] ??? Pro lap, diagnostic abdomen 02/10/2014 LAPAROSCOPY, DIAGNOSTIC, ABDOMEN performed by Wally Pfeiffer MD at [facility] ??? Pro excise excess skin tissue, abdomen N/A 05/17/2016 ABDOMINOPLASTY performed by Karlene Valencia MD at [facility] ??? Pro repair incisional hernia, reducible N/A 05/17/2016 REPAIR INITIAL INCISIONAL OR VENTRAL HERNIA REDUCIBLE performed by Stephanie Ortega MD at [facility] ??? 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 Stairs: flight Baseline Mobility: independent Equipment at home: none Precautions/Special Considerations: abdominal binder when upright; stoop forward when ambulating with walker Subjective: ready to go home Mental Status/Behavior: wants to go home; appears ill at ease; cooperative for PT Vital Signs: Last value Range last 8 hrs Temperature Temp: 36.8 ??C (98.2 ??F) Temp: [36.5 ??C (97.7 ??F)-36.8 ??C (98.2 ??F)] Heart Rate Heart Rate: 119 Heart Rate: -- Blood Pressure BP: 139/85 BP: (114-139)/(75-85) Respiratory Rate Resp: 16 Resp: [16] SpO2 SpO2: 94 % SpO2: [94 %] HR: very irregular rhythm with HR 100s-140s; pt asymptomatic BP: n/t SpO2: >90% on RA; on CPAP at home Airway clearance: strong cough with airway clearance while exercising; spirometer to 1.5L Pain: does not admit to pain Skin: abdominal incision closed, not dressed, binder on; bilateral MONICA drains: pt learning how to empty bulbs ROM: intentionally limited in trunk extension when upright Strength: no obvious weakness Motor Control: good for in room ADL Bed Mobility: Rolls without assist. Scoots without assist. Semi-supine <-> Sit with minimal lift assist to sit up Tolerates chair position of bed: pt in chair Balance: Sit: stable Stand: stable Dynamic: stable with/without walker Transfers: Sit <-> Stand without assist. Stand - pivot - sit without assist. Requires mechanical lift at this time: no Gait: stable with walker 150ft; negotiated flight stairs using railings with supervision (HR up to 140s post stairs/walking) Informed Consent: the patient agrees to and understands the PT treatment plan and goals. Education: patient has been educated on Bed mobility, Transfers, Stairs, Breathing exercises, Safety , Precautions/protocol, Gait , Activity pacing/Energy conservation and Discharge planning and verbalizes understanding. Patient status, treatment, and mobility recommendations discussed with nursing. Assessment: pt has met mobility d/c criteria; needs a little help to get up from supine roll to R; HR variable but pt asymptomatic; pt minimizes pain Goals: pt has met goals for d/c Plan: d/c home with walker, abdominal binders Discharge Recommendations: based on the current findings noted during this evaluation, patient could benefit from Home with further Skilled Therapy when medically ready for hospital discharge. This recommendation is based on the patient's Current physical impairments and may change based on patient progress during this hospitalization. Consult Recommendations: Occupational Therapy consult Equipment needs: Rolling walkerl abdominal binders Total time spent with patient: 50 minutes Total timed interventions: 0 minutes (initial eval) Pager: [phone] JE[facility] PT 05/19/2016 Physical Therapy Rehabilitation Department * Plan of Care - Aida Malone RN - 05/19/2016 6:21 AM EDT Problem: General Plan of Care Goal: Plan of Care Review Outcome: Ongoing (Interventions Implemented as Appropriate) 05/18/16 0317 05/18/161999 Plan of Care Review Plan of Care Outcome Status ongoing (interventions implemented as appropriate) -- Progress improving -- Coping/Psychosocial Response Interventions Plan of Care Reviewed with -- patient OUTCOME EVALUATION NOTE: OUTCOME SUMMARY: Pt. Had uneventful night. Slept in chair all night. One assist to bathroom, voiding without difficulty. Receiving po Oxycodone for pain with adequate relief. Dressing to lower abdomen d/i. MONICA drains intact, draining serousanginous drainage. Hypoactive bowel sounds. +pulses. Remainson telemetry. No distress noted. Will continue to monitor. PLAN MOVING FORWARD: Mobilize, D/C planning. INDIVIDUALIZED FALL PREVENTION INTERVENTIONS: Patient-specific fall risk factors per assessment: [current deficits]: Recent surgery, Narcotics Assistance [level of assistance required for transfers and ambulation]: Stand-by assist with walker. Supervision [direct monitoring required during toileting and ADLs]: Eyes on, intermittent Surveillance [continuous indirect monitoring]: Purposeful rounding, Masimo, Telemetry. Patient-specific fall prevention interventions for sensory deficits provided, if applicable: [X] N/A CPG GOAL OUTCOME EVALUATION: Goal: Individualization and Mutuality Outcome: Ongoing (Interventions Implemented as Appropriate) 05/17/16214405/18/16316 Individualization Individualize the Plan of Care: -- Educated on MONICA drains Patient Specific Preferences -- none Patient Specific Goals -- pain control/maintenance Mutuality/Individual Preferences What anxieties, fears or concerns do you have about your health or care? none -- What questions do you have about your health or care? none -- What information would help us give you more personalized care? none -- Goal: Fall Prevention-Safe Patient Handling Outcome: Ongoing (Interventions Implemented as Appropriate) 05/17/16182705/18/161999 Safety Interventions Safety Precautions/Fall Reduction -- assistive device;environmental modification;lighting adjusted for task/safety;low bed Musculoskeletal Interventions Activity/Level of Assistance -- up in room;with stand by assist Positioning -- independent Self-Care Promotion adaptive equipment provided;assistance provided to decrease frustration -- Mathews Fall Risk History of Falling -- 0 Secondary Diagnosis -- 15 Ambulatory Aids -- 15 Intravenous Therapy/Heparin/Saline Lock -- 20 Gait/Transferring -- 10 Mental Status -- 0 Score -- 60 Activity and Safety Assistive Device -- Front wheel walker OTHER Mathews Fall Risk -- High Goal: Infection Control Outcome: Ongoing (Interventions Implemented as Appropriate) 05/17/16213805/18/16 0038 05/18/16 0830 Safety Interventions Isolation Precautions -- -- standard precautions maintained Infection Prevention -- rest/sleep promoted;environmental surveillance;hydration promoted;nutritionpromoted -- Coping/Psychosocial Response Interventions Counseling goal setting facilitated;personal strengths integrated;relaxation techniques promoted ---- Goal: Discharge Needs Assessment Outcome: Ongoing (Interventions Implemented as Appropriate) 05/18/16 0317 Discharge Needs Assessment Concerns to be Addressed no discharge needs identified Concerns Comments None Readmission Within the Last 30 Days no previous admission in last 30 days Equipment Needed After Discharge other (see comments) (Drain supplies) Discharge Planning Comments pt D/C to home Self-Care Equipment Currently Used at Home none Living Environment Transportation Available family or friend will provide * Op Note - Stephanie Ortega MD - 05/18/2016 1:49 PM EDT [facility] – [place] Operative Note Patient Name: Eugene Rueda : [id number] MR#: [id number] Case Date: 05/17/2016 Surgeon: Surgeon(s) and Role: Panel 1: * Karlene Valencia MD - Primary * Tarik Schuster MD Panel 2: * Stephanie Ortega MD - Primary * Ilya Al MD - Resident-Surgeon Vladimir Preoperative diagnosis: abdominal pannus Postoperative diagnosis: abdominal pannus Procedure(s): ABDOMINOPLASTY MODIFIER PANNICULECTOMY REPAIR INITIAL INCISIONAL OR VENTRAL HERNIA REDUCIBLE MODIFIER MESH,BARD VENTRIO Anesthesia: General Estimated Blood Loss: * No values recorded between 05/17/2016 8:08 AM and 05/17/2016 10:24 AM * Specimens removed during surgery: None Drains: Drain/Device Site 05/17/16 1006 Left abdomen collapsible closed device (Active) Insertion Site dressing changed;dry crusted drainage 05/18/2016 8:30 AM Drain Device Number 2 05/18/2016 8:30 AM Drainage Characteristics/Odor serosanguineous 05/18/2016 8:30 AM Drainage Amount scant 05/18/2016 8:30 AM Therapy Setting (Negative Pressure Wound Therapy) continuous therapy 05/18/2016 8:30 AM Pressure Setting (Negative Pressure Wound Therapy) other (see comments) 05/18/2016 8:30 AM General Output (mL) 25 05/18/2016 12:00 PM Drain/Device Site 05/17/16 1008 Right abdomen collapsible closed device (Active) Insertion Site dressing changed;dry crusted drainage 05/18/2016 8:30 AM Drain Device Number 1 05/18/2016 8:30 AM Drainage Characteristics/Odor serosanguineous 05/18/2016 8:30 AM Drainage Amount scant 05/18/2016 8:30 AM Therapy Setting (Negative Pressure Wound Therapy) continuous therapy 05/18/2016 8:30 AM Pressure Setting (Negative Pressure Wound Therapy) other (see comments) 05/18/2016 8:30 AM General Output (mL) 15 05/18/2016 12:00 PM Surgical Closure: Primary Closure - closure of ALL tissue levels during the original surgery regardless of wires, wickes, drains, or other devices extruding through the incision Disposition: awakened from anesthesia, extubated and taken to the recovery room in a stable condition, having suffered no apparent untoward event. Condition: doing well without problems (Please see the Surgical Encounter Summary for any Implant and Specimen details pertinent to this patient.) PREOPERATIVE DIAGNOSIS: Recurrent ventral hernia. POSTOPERATIVE DIAGNOSIS: Recurrent ventral hernia. OPERATION: Ventral hernia repair (recurrent), with mesh. SURGEON: Dr. Ortega. CROWN BLOCKER: Shon. Mr. Rueda was seen preoperatively by both me and the Plastic Surgery service. He is undergoing panniculectomy and has a recurrent umbilical hernia that was previously treated with mesh. With the patient already on the table, after exposure by the plastic surgery service, I was called in to assist with closing of the ventral hernia. Team timeout was repeated for my portion of the procedure, which is ventral hernia repair. The hernia appeared above and right at the superior edge of the mesh that was previously placed. This was extended upward due to thin attenuated tissue with several areas of profound weakness. The defect size measured 6.5 x 3 cm The mobilized area in the midline was then elevated and sharp and blunt dissection was used to take down multiple adhesions mostly omentum to the undersurface of the abdominal wall. A 13 x [address] mesh was then placed in the abdominal cavity and tacked circumferentially with 0 Prolene sutures. A SecureStrap tacker was then used to tack through the slit in the mesh, ring to edge circumferentially. The fascia was then oversewn using a #1 PDS suture in a [id number]-type manner. Interrupted full-thickness sutures were brought through the superior layer to the inferior layer, so the anterior layer to the posterior layer, to bring it across the abdominal midline. We then ran the fascia closed with a cut edge being sewn up to the flap of the anterior fascia on the opposite side. The sponge and instrument counts were correct for this portion of the procedure, and the remaining procedure will be dictated by Plastic Surgery, including closure of skin. Attestation: Case Date: 05/17/2016 I was present and I participated during the entire procedure (does not need to include opening and closing). STEPHANIE ORTEGA MD 05/18/2016 * Care Management - Radha Quiñonez MSW - 05/18/2016 10:43 AM EDT Office of Care Management Initial Assessment CONRAD Warner reviewed record and discussed patient with Care Team. Introduced/reviewed role; services accepted. Source of Information: Pt Reason for Hospitalization: s/p abdominoplasty and ventral hernia repair. Past Medical History Diagnosis Date ??? Blood disorder ??? Circulatory disease ??? Diabetes Hospitalizations Within the Past 30 Days: No Anticipated Length Of Stay (If known): TBD Current Decision-Making Capacity: Pt is able to make all his own decisions Advance Care Planning: No and declines paperwork Current Coping/Education/Information Needs: Pt appears to be coping well. Current Functional Ability: mobilize this AM Functional Status Prior to Admission: Independent of all ADL's and IADL's. Drives himself Home Environment: Lives in an apt with his son it is on the 2nd level with approximately 14 stairs to enter. Social & Family Supports/Community Resources: Son Behavioral Health History: Declines Substance Use/Abuse: Declines Other Pertinent/Service Specific Information: n/a Health/Prescription Coverage: yes Primary Insurance: MEDICARE Secondary Insurance: [employer] OOS Prescription Coverage: Insurance as noted [facility]: [phone] Other: n/a Primary Care Provider: MANOLO CASTRO MD [phone] Patient/Caregiver Goals of Treatment: Return home with son to assist Potential Needs for Transition of Care: Yes Rehab/SNF: no Home Health: nurse states in her notes, pt declines help at this time DME: CPAP Dialysis: no Community Resources: no Transportation: son Other: n/a Anticipated Barriers to Discharge/Special Considerations: no Plan: Return home with son to assist at this time. A member of the Care Management team will continue to monitor progress, follow for continuity of care and assist with transition of care planning. CONRAD Warner Pager: [phone] * Plan of Care - Ana Whitlock RN - 05/18/2016 3:52 AM EDT Problem: General Plan of Care Goal: Plan of Care Review Outcome: Ongoing (Interventions Implemented as Appropriate) 05/18/16 0317 Plan of Care Review Plan of Care Outcome Status ongoing (interventions implemented as appropriate) Progress improving Coping/Psychosocial Response Interventions Plan of Care Reviewed with patient OUTCOME EVALUATION NOTE: OUTCOME SUMMARY: Pt received 5mg oxycodone prn pain at 2230 and has not complained of pain since. 2 units of insulingiven at 2230. Ancef ran at 0100. Pt has not been OOB but did urinate during shift. Pt educated on MONICA drains- emptying, purpose and what a functioning drain should look like. MONICA drain 1 had 25cc of sanguineous op- dressing is clean dry and intact. MONICA drain 2 had 35cc sanguineous op- dressing is intact with scant amount of sanguineous drainage on edge- abd pad applied to re-enforce. Transverse abddressing is clean, dry and intact. Umbilical dressing is intact with a scant amount of sanguineous drainage. Pt was quiet and slept for most of the night. Plan is to D/C home with [facility]. Pt progressingtoward discharge goals. Will continue to monitor. Tele Note: S- pt reports no SOB or chest pain O- Pt HR 65-130. Alarm set to 70/120. A- Tele strip shows AFIB frequent/occasional MF PVCs, rare cplts. P- Will continue to monitor pt and tele as ordered. PLAN MOVING FORWARD: Pain control, any needed D/C education PRN INDIVIDUALIZED FALL PREVENTION INTERVENTIONS: Patient-specific fall risk factors per assessment: [current deficits]: Pain medications, IV fluids,SCDs, hasn't been OOB Assistance [level of assistance required for transfers and ambulation]: Pt hasn't been OOB post op plan to mobilize this AM Supervision [direct monitoring required during toileting and ADLs]: Eyes on tolieting Surveillance [continuous indirect monitoring]: masimo and telemetry, 1 hour checks Patient-specific fall prevention interventions for sensory deficits provided, if applicable: No CPG GOAL OUTCOME EVALUATION: Goal: Individualization and Mutuality 05/17/16214405/18/16316 Individualization Individualize the Plan of Care: -- Educated on MONICA drains Patient Specific Preferences -- none Patient Specific Goals -- pain control/maintenance Mutuality/Individual Preferences What anxieties, fears or concerns do you have about your health or care? none -- What questions do you have about your health or care? none -- What information would help us give you more personalized care? none -- Goal: Fall Prevention-Safe Patient Handling Outcome: Ongoing (Interventions Implemented as Appropriate) 05/17/16 1335 05/17/16182705/18/1637 Safety Interventions Safety Precautions/Fall Reduction -- -- assistive device;bed alarm;environmental modification;fall reduction program maintained;lighting adjusted for task/safety;low bed;nonskid shoes/slippers when out of bed;room near unit station Musculoskeletal Interventions Positioning HOB up 30 degrees -- -- Self-Care Promotion -- adaptive equipment provided;assistance provided to decrease frustration -- Mathews Fall Risk History of Falling -- -- 0 Secondary Diagnosis -- -- 15 Ambulatory Aids -- -- 15 Intravenous Therapy/Heparin/Saline Lock -- -- 20 Gait/Transferring -- -- 10 Mental Status -- -- 0 Score -- -- 60 OTHER Mathews Fall Risk -- -- High Goal: Infection Control Outcome: Ongoing (Interventions Implemented as Appropriate) 05/17/16213805/18/1637 Safety Interventions Isolation Precautions -- standard precautions maintained Infection Prevention -- rest/sleep promoted;environmental surveillance;hydration promoted;nutritionpromoted Coping/Psychosocial Response Interventions Counseling goal setting facilitated;personal strengths integrated;relaxation techniques promoted -- Goal: Discharge Needs Assessment Outcome: Ongoing (Interventions Implemented as Appropriate) 08/12/16 0317 Discharge Needs Assessment Concerns to be Addressed no discharge needs identified Concerns Comments None Readmission Within the Last 30 Days no previous admission in last 30 days Equipment Needed After Discharge other (see comments) (Drain supplies) Discharge Planning Comments pt D/C to home Self-Care Equipment Currently Used at Home none Living Environment Transportation Available family or friend will provide Problem: Perioperative Period (Adult, Obstetrics) Goal: Signs and symptoms of listed potential problems will be absent or manageable (reference (Perioperative Period (Adult, Obstetrics)) CPG) 05/18/16 0317 Perioperative Period Problems Assessed (Perioperative Period) acute pain Problems Present (Perioperative Period) acute pain * Plan of Care - Kenia Sarabia RN - 05/17/2016 6:37 PM EDT Problem: General Plan of Care Goal: Plan of Care Review Outcome: Ongoing (Interventions Implemented as Appropriate) 05/17/16133405/17/16 182 Plan of Care Review Plan of Care Outcome Status -- ongoing (interventions implemented as appropriate) Coping/Psychosocial Response Interventions Plan of Care Reviewed with patient -- OUTCOME EVALUATION NOTE: OUTCOME SUMMARY: Patient doing well since arrival from PACU. Patient states pain is tolerable but has sharp pains onoccasions, being controlled by PRN oxycodone. Dressing to abdomen is CDI. JPs putting out small amount of sanguinous drainage. Abdominal binder on. Patient currently in afib, team is aware. HR 90-140. Patient denies chest pain and SOB. Patient voiding adequate amounts of urine, bladder scanned for small amount. VSS. Will continue to monitor. PLAN MOVING FORWARD: Pain management. Mobilization. INDIVIDUALIZED FALL PREVENTION INTERVENTIONS: Patient-specific fall risk factors per assessment: [current deficits]: Pain medication use, unfamiliar environment. Assistance [level of assistance required for transfers and ambulation]: Not OOB yet. Supervision [direct monitoring required during toileting and ADLs]: Hands on. Surveillance [continuous indirect monitoring]: Bed alarm, hourly rounding. Patient-specific fall prevention interventions for sensory deficits provided, if applicable: [X] N/A CPG GOAL OUTCOME EVALUATION: Goal: Fall Prevention-Safe Patient Handling 05/17/16133405/17/16 182 Safety Interventions Safety Precautions/Fall Reduction assistive device;bed alarm;commode/urinal/bedpan at bedside;environmental modification;fall reduction program maintained;low bed -- Musculoskeletal Interventions Positioning HOB up 30 degrees -- Self-Care Promotion -- adaptive equipment provided;assistance provided to decrease frustration Mathews Fall Risk History of Falling 0 -- Secondary Diagnosis 15 -- Ambulatory Aids 15 -- Intravenous Therapy/Heparin/Saline Lock 20 -- Gait/Transferring 10 -- Mental Status 0 -- Score 60 -- OTHER Mathews Fall Risk High -- Goal: Infection Control Outcome: Ongoing (Interventions Implemented as Appropriate) 05/17/16 1335 05/17/16 1828 Safety Interventions Isolation Precautions -- standard precautions maintained Infection Prevention -- environmental surveillance;hydration promoted;nutrition promoted;rest/sleeppromoted Coping/Psychosocial Response Interventions Counseling relaxation techniques promoted -- * Op Note - Karlene Valencia MD - 05/17/2016 10:15 AM EDT [facility] – [place] Operative Note Patient Name: Eugene Rueda : [id number] MR#: [id number] Case Date: 05/17/2016 Surgeon: Surgeon(s) and Role: Panel 1: * Karlene Valencia MD - Primary * Tarik Schuster MD Panel 2: * Stephanie Ortega MD - Primary * Ilya Al MD - Resident-Surgeon Vladimir Preoperative diagnosis: abdominal pannus Postoperative diagnosis: abdominal pannus Procedure(s): ABDOMINOPLASTY MODIFIER PANNICULECTOMY REPAIR INITIAL INCISIONAL OR VENTRAL HERNIA REDUCIBLE MODIFIER MESH,BARD VENTRIO Anesthesia: General Estimated Blood Loss: 25 ml Specimens removed during surgery: abdominal pannus 2 Kg Drains: # 19 Rao x 2 Drain/Device Site 05/17/16 1006 Left abdomen collapsible closed device (Active) Drain/Device Site 05/17/16 1008 Right abdomen collapsible closed device (Active) Surgical Closure: Primary Closure - closure of ALL tissue levels during the original surgery regardless of wires, wickes, drains, or other devices extruding through the incision Disposition: awakened from anesthesia, extubated and taken to the recovery room in a stable condition, having suffered no apparent untoward event. Condition: doing well without problems (Please see the Surgical Encounter Summary for any Implant and Specimen details pertinent to this patient.) HPI/Surgical Indications: 65 year old male with symptomatic abdominal pannus and ventral hernia. Weoffered him panniculectomy with hernia repair by dr Ortega. He agreed with the plan and elected to proceed. Procedure Description: CLARIFICATION NEEDED: 1 SAEID Knight was identified and marked in the upright position in the preoperative holding area. Review of the surgical plan, which was panniculectomy and ventral hernia repair by Dr. Ortega. He understood the potential risks and complications and elected to proceed. The patient was brought to the operating room and placed on the operating room table in the supine position. Anesthetic monitors and SCDs were applied. After induction of general anesthesia, the patient was intubated orally and maintained on general anesthesia throughout the remainder of the case. The abdomen and flanks were prepped and draped in a standard sterile fashion. The operation began by making a low abdominal Pfannenstiel type incision through skin, subcuticular tissue, and fat. Dissection ensued from superficial to deep with electrocautery to the anterior rectus sheath, and then proceeded superiorly. The umbilical remnant was preserved in the midline and the infraumbilical flap was split vertically in the midline. Dissection then ensued to the costal margins and xiphoid process bilaterally. There is a small ventral hernia in laxity along the upper abdominal fascia, associated with previous mesh. We excised the hernia and Dr. Ortega was called to the operating room for repair. The details of the hernia repair will be dictated independently by Dr. Ortega. Upon completion of the hernia repair, we then irrigated the abdomen copiously. Two #19 [place]er Rao drains were inserted, 1 on each side and secured with 2-0 silk suture. The upper abdominal flap was then transposed inferiorly and excess abdominal tissue and pannus was excised, such that a total of 2 kg was removed. Hemostasis was achieved with electrocautery and hemostatic clips. Closure was then performed in a multilayered fashion with 0 Vicryl for Madhu's level repair and an insorb stapling device for deep dermis, and 3-0 Monocryl as a running subcuticular closure of the skin. The umbilical remnant was brought out at the vertical midline at the level of the posterior iliac crest, and inset with 2-0 Vicryl and 4-0 Chromic gut suture. Operative sites were cleansed and dried. Dermabond was applied across the low abdominal incision. Xeroform and Bacitracin was applied into the umbilical remnant. Drains were activated with grenade suction. Over dressings were applied. The drapes were taken down. The patient was weaned from anesthesia and extubated in the operating room. He was transitioned to his OR stretcher and transported to the post anesthesia care unit, where he was reported stable and breathing spontaneously in the semi-Dunn's position. An abdominal binder had also been applied. All sponge, instrument, and needle counts were reported as correct by nursing staff at the end of the case. There were no apparent complications to the procedure. The patient tolerated the procedure well. Infection Bundle used? No Attestation: Case Date: 05/17/2016 I was present and I participated during the entire procedure (does not need to include opening and closing). KARLENE VALENCIA MD 05/17/2016 * Brief Op Note - Karlene Valencia MD - 05/17/2016 10:14 AM EDT Brief Operative Note Patient Name: Eugene Rueda : [id number] MR#: [id number] Case Date: 05/17/2016 Surgeon: Surgeon(s) and Role: Panel 1: * Karlene Valencia MD - Primary * Tarik Schuster MD Panel 2: * Stephanie Ortega MD - Primary * Ilya Al MD - Resident-Surgeon Vladimir Preoperative diagnosis: abdominal pannus Postoperative diagnosis: abdominal pannus Procedure(s): ABDOMINOPLASTY MODIFIER PANNICULECTOMY REPAIR INITIAL INCISIONAL OR VENTRAL HERNIA REDUCIBLE MODIFIER MESH,BARD VENTRIO Anesthesia: General Findings: Abdominal pannus and ventral hernia Complications: None apparent Fluids: 1 liter crystalloid Estimated Blood Loss: 25 ml Drains: # 19 Rao x 2 Disposition: awakened from anesthesia, extubated and taken to the recovery room in a stable condition, having suffered no apparent untoward event. Condition: doing well without problems Infection Bundle used? No Attestation: Case Date: 05/17/2016 I was present and I participated during the entire procedure (does not need to include opening and closing). (Please see the Surgical Encounter Summary for any Implant and Specimen details pertinent to this patient.) documented in this encounter Plan of Treatment Upcoming Encounters Date Type Department Care Team (Late st Contact Info) Description 05/15/2024 10:00 AM EDT [place] [id number] Catrachito Mehta MD [facility] [place] [address] documented as of this encounter Procedures Procedure Name Priority Date/Time Associated Diagnosis Comments TRAVELING PHLEBOTOMIST SCAN 05/21/2016 12:00 AM EDT POCT GLUCOSE Routine 05/20/2016 8:21 AM EDT POCT GLUCOSE Routine 05/19/2016 8:57 PM EDT POCT GLUCOSE Routine 05/19/2016 5:02 PM EDT POCT GLUCOSE Routine 05/19/2016 11:41 AM EDT POCT GLUCOSE Routine 05/19/2016 7:37 AM EDT POCT GLUCOSE Routine 05/18/2016 8:48 PM EDT POCT GLUCOSE Routine 05/18/2016 4:45 PM EDT POCT GLUCOSE Routine 05/18/2016 12:14 PM EDT POCT GLUCOSE Routine 05/18/2016 8:09 AM EDT POCT GLUCOSE Routine 05/17/2016 9:32 PM EDT POCT GLUCOSE Routine 05/17/2016 4:14 PM EDT POCT GLUCOSE Routine 05/17/2016 10:41 AM EDT MODIFIER MESH,BARD VENTRIO 05/17/2016 7:32 AM EDT abdominal pannus REPAIR INITIAL INCISIONAL OR VENTRAL HERNIA REDUCIBLE (WRVU 11.92) 05/17/2016 7:32 AM EDT abdominal pannus MODIFIER PANNICULECTOMY 05/17/2016 7:32 AM EDT abdominal pannus PANNICULECTOMY (WRVU 17.11) 05/17/2016 7:32 AM EDT abdominal pannus POCT GLUCOSE Routine 05/17/2016 6:40 AM EDT REPAIR INITIAL INCISIONAL OR VENTRAL HERNIA REDUCIBLE Routine 05/17/2016 5:58 AM EDT PROTHROMBIN TIME STAT 05/17/2016 5:56 AM EDT Chronic anticoagulation documented in this encounter Results * SCAN DOC: TRAVELING PHLEBOTOMIST (05/21/2016 12:00 AM EDT) Anatomical Region Laterality Modality Other Scanning Provider MEDIA MGR SCAN EXT O RDR/RSLT * POCT Glucose (05/20/2016 8:21 AM EDT) POC Glucose 134 65 - 199 mg/dL [facility] Comment: Supplemental ranges: <140 mg/dL before meals <180 mg/dL all other times of the day Blood specimen (specimen) 05/20/2016 8:21 AM EDT 05/20/2016 8:21 AM EDT Karlene Valencia MD POINT OF CARE TEST O RDERABLES [facility] [place] [address] * POCT Glucose (05/19/2016 8:57 PM EDT) POC Glucose 131 65 - 199 mg/dL [facility] Comment: Supplemental ranges: <140 mg/dL before meals <180 mg/dL all other times of the day Blood specimen (specimen) 05/19/2016 8:57 PM EDT 05/19/2016 8:57 PM EDT Karlene Valencia MD POINT OF CARE TEST O RDERAALYSHA [facility] [place] [address] * POCT Glucose (05/19/2016 5:02 PM EDT) POC Glucose 120 65 - 199 mg/dL [facility] Comment: Supplemental ranges: <140 mg/dL before meals <180 mg/dL all other times of the day Blood specimen (specimen) 05/19/2016 5:02 PM EDT 05/19/2016 5:02 PM EDT Karlene Valencia MD POINT OF CARE TEST O DYLANERAALYSHA Performing Organization Address [facility]/ZIP Co de Phone Number [facility] [place] [address] * POCT Glucose (05/19/2016 11:41 AM EDT) POC Glucose 140 65 - 199 mg/dL [facility] Comment: Supplemental ranges: <140 mg/dL before meals <180 mg/dL all other times of the day Blood specimen (specimen) 05/19/2016 11:41 AM EDT 05/19/2016 11:41 AM EDT Karlene Valencia MD POINT OF CARE TEST O RDERAALYSHA Performing Organization Address City/[facility]/ZIP Co de Phone Number [facility] [place] [address] * POCT Glucose (05/19/2016 7:37 AM EDT) POC Glucose 134 65 - 199 mg/dL [facility] Comment: Supplemental ranges: <140 mg/dL before meals <180 mg/dL all other times of the day Blood specimen (specimen) 05/19/2016 7:37 AM EDT 05/19/2016 7:37 AM EDT Karlene Valencia MD POINT OF CARE TEST O DYLANERAALYSHA Performing Organization Address City/[facility]/ZIP Co de Phone Number [facility] [place] [address] * POCT Glucose (05/18/2016 8:48 PM EDT) POC Glucose 173 65 - 199 mg/dL [facility] Comment: Supplemental ranges: <140 mg/dL before meals <180 mg/dL all other times of the day Blood specimen (specimen) 05/18/2016 8:48 PM EDT 05/18/2016 8:48 PM EDT Karlene Valencia MD POINT OF CARE TEST O DYLANERAALYSHA Performing Organization Address [facility]/ZIP Co de Phone Number [facility] [place] [address] * POCT Glucose (05/18/2016 4:45 PM EDT) POC Glucose 125 65 - 199 mg/dL [facility] Comment: Supplemental ranges: <140 mg/dL before meals <180 mg/dL all other times of the day Blood specimen (specimen) 05/18/2016 4:45 PM EDT 05/18/2016 4:45 PM EDT Karlene Valencia MD POINT OF CARE TEST O RDERAALYSHA [facility] [place] [address] * POCT Glucose (05/18/2016 12:14 PM EDT) POC Glucose 137 65 - 199 mg/dL [facility] Comment: Supplemental ranges: <140 mg/dL before meals <180 mg/dL all other times of the day Blood specimen (specimen) 05/18/2016 12:14 PM EDT 05/18/2016 12:14 PM EDT Karlene Valencia MD POINT OF CARE TEST O SADIA [facility] [place] [address] * POCT Glucose (05/18/2016 8:09 AM EDT) POC Glucose 178 65 - 199 mg/dL [facility] Comment: Supplemental ranges: <140 mg/dL before meals <180 mg/dL all other times of the day Blood specimen (specimen) 05/18/2016 8:09 AM EDT 05/18/2016 8:09 AM EDT Karlene Valencia MD POINT OF CARE TEST O SADIA Performing Organization Address [facility]/ZIP Co de Phone Number [facility] [place] [address] * POCT Glucose (05/17/2016 9:32 PM EDT) POC Glucose 172 65 - 199 mg/dL [facility] Comment: Supplemental ranges: <140 mg/dL before meals <180 mg/dL all other times of the day Blood specimen (specimen) 05/17/2016 9:32 PM EDT 05/17/2016 9:32 PM EDT Karlene Valencia MD POINT OF CARE TEST O SADIA Performing Organization Address City/[facility]/ZIP Co de Phone Number [facility] [place] [address] * POCT Glucose (05/17/2016 4:14 PM EDT) POC Glucose 186 65 - 199 mg/dL [facility] Comment: Supplemental ranges: <140 mg/dL before meals <180 mg/dL all other times of the day Blood specimen (specimen) 05/17/2016 4:14 PM EDT 05/17/2016 4:14 PM EDT Karlene Valencia MD POINT OF CARE TEST O SADIA Performing Organization Address [facility] Co de Phone Number [facility] [place] [address] * POCT Glucose (05/17/2016 10:41 AM EDT) POC Glucose 185 65 - 199 mg/dL [facility] Comment: Supplemental ranges: <140 mg/dL before meals <180 mg/dL all other times of the day Blood specimen (specimen) 05/17/2016 10:41 AM EDT 05/17/2016 10:41 AM EDT Karlene Valencia MD POINT OF CARE TEST O SADIA Performing Organization Address [facility] Co de Phone Number [facility] [place] [address] * POCT Glucose (05/17/2016 6:40 AM EDT) POC Glucose 131 65 - 199 mg/dL [facility] Comment: Supplemental ranges: <140 mg/dL before meals <180 mg/dL all other times of the day Blood specimen (specimen) 05/17/2016 6:40 AM EDT 05/17/2016 6:40 AM EDT Karlene Valencia MD POINT OF CARE TEST O SADIA Performing Organization Address [facility] Co de Phone Number [facility] [place] [address] * Prothrombin Time (05/17/2016 5:56 AM EDT) PT 14.6 12.0 - 15.0 sec [facility] Comment: An INR <2.0 indicates adequate procoagulant activity for hemostasis in most patients without underlying bleeding disorders, though the INR may not adequately reflect hemostatic capacity in patients with liver disease and synthetic impairment. The recommended target INR range for therapeutic anticoagulation is 2.0 ? 3.0 for most applications, though lower and higher ranges may be appropriate depending on clinical circumstances. INR 1.1 0.9 - 1.1 [facility] Blood specimen (specimen) 05/17/2016 5:56 AM EDT 05/17/2016 6:33 AM EDT Narrative Resulting Agency Comment Spec In Lab Karlene Valencia MD HEMATOLOGY ORDERABLE S [facility] [place] [address] documented in this encounter Visit Diagnoses Not on filedocumented in this encounter Administered Medications Inactive Administered Medications - up to 3 most recent administrations Medication Order MAR Action Action Date Dose Rate Site acetaminophen (TYLENOL) tablet 650 mg 650 mg, Oral, EVERY 6 HOURS SCHEDULED, First dose on Diamond 05/17/16 at 1300, Until Discontinued, Maximum dose of acetaminophen is 4000 mg from all sources in 24 hours., Routine Given 05/20/2016 6:20 AM EDT 650 mg Given 05/20/2016 1:16 AM EDT 650 mg Given 05/19/2016 5:03 PM EDT 650 mg bisacodyl (DULCOLAX) suppository 10 mg 10 mg, Rectal, DAILY PRN, Starting on Diamond 05/17/16 at 1250, Until 05/20/16 at 1206, Constipation, Administer if needed per patient's routine or if no bowel movement within 48 hours to achieve: 1) One bowel movement at least every 48 hours, AND 2) Without straining. If multiple bowel medications ordered, consider adding if docusate or milk of magnesia not sufficient., Routine Given 05/19/2016 5:03 PM EDT 10 mg ceFAZolin (ANCEF) 1g in dextrose 5% 50mL 1,000 mg (1 g), Intravenous, EVERY 8 HOURS, First dose on Sat05/18/16 at 0900, Until Discontinued, Administer over 30 Minutes, Indication for (Active or Suspected): Prophylaxis Given 05/20/2016 1:16 AM EDT 1,000 mg 100 mL/ hr Given 05/19/2016 5:03 PM EDT 1,000 mg 100 mL/hr Given 05/19/2016 8:09 AM EDT 1,000 mg 100 mL/hr dextrose 50% injection 25-50 mL 25-50 mL (12.5-25 g), Intravenous, EVERY 1 HOUR PRN, Starting on Sat05/17/16 at 1250, Until 05/20/16 at 1206, Low blood sugar, For BG 50-70: 120 mL Juice or Regular (not diet) soda OR 12.5 gram (25 mL) Dextrose 50% IV OR, if no IV access, 1 mg Glucagon IM. Recheck BG in 30 minutes. May repeat juice, dextrose or glucagon once per episode For BG less than 50: 240 mL Juice or Regular (not diet) soda OR 25 grams (50 mL) Dextrose 50% IV OR, if no IV access, 1 mg Glucagon IM. Recheck BG in 30 minutes. May repeat juice, dextrose, or glucagon once per episode. To avoid extravasation, push Dextrose 50% SLOWLY (3 mL over 1 minute) in a patent, running IV, preferably a central line. For persistent hypoglycemia, consider longer-acting treatment for the duration of the active insulin., Routine DILTiazem (DILACOR XR) XR capsule 240 mg 240 mg, Oral, DAILY, First dose on Sat05/17/16 at 1400, Until Discontinued, DO NOT CRUSH OR OPEN, Routine Given 05/20/2016 8:58 AM EDT 240 mg Given 05/19/2016 8:08 AM EDT 240 mg Given 05/18/2016 8:55 AM EDT 240 mg docusate sodium (COLACE) capsule 100 mg 100 mg, Oral, 2 TIMES DAILY, First dose on Sat05/17/16 at 1315, Until Discontinued, Routine Given 05/20/2016 8:59 AM EDT 100 mg Given 05/19/2016 9:24 PM EDT 100 mg Given 05/19/2016 8:08 AM EDT 100 mg enoxaparin (LOVENOX) injection 40 mg 40 mg, Subcutaneous, DAILY, First dose on Sat05/18/16 at 0900, Until Discontinued, Routine Given 05/20/2016 8:59 AM EDT 40 mg Given 05/19/2016 8:08 AM EDT 40 mg Ri ght Lower Quadrant Given 05/18/2016 8:57 AM EDT 40 mg Ri ght Lower Quadrant glucagon (human recombinant) injection 1 mg 1 mg, Intramuscular, EVERY 1 HOUR PRN, Low blood sugar, Starting on Diamond 05/17/16 at 1250, Until 05/20/16 at 1206, For BG 50-70: 120 mL Juice or Regular (not diet) soda OR 12.5 gram (25 mL) Dextrose 50% IV OR, if no IV access, 1 mg Glucagon IM. Recheck BG in 30 minutes. May repeat juice, dextrose or glucagon once per episode For BG less than 50: 240 mL Juice or Regular (not diet) soda OR 25 grams (50 mL) Dextrose 50% IV OR, if no IV access, 1 mg Glucagon IM. Recheck BG in 30 minutes. May repeat juice, dextrose, or glucagon once per episode. To avoid extravasation, push Dextrose 50% SLOWLY (3 mL over 1 minute) in a patent, running IV, preferably a central line. For persistent hypoglycemia, consider longer-acting treatment for the duration of the active insulin. insulin aspart (NovoLOG) VIAL injection 1-4 Units 1-4 Units, Subcutaneous, 4 TIMES DAILY BEFORE MEALS & NIGHTLY, First dose (after last modification) on Diamond 05/17/16 at 2215, Until Discontinued, CORRECTION BOLUS Sensitive to insulin lean patient or total daily dose of all insulin needed to achieve glycemic control less than 30 units BG 140 - 160 Give 1 unit BG 161 - 200 Give 2 units BG 201 - 240 Give 3 units BG greater than 240, give 4 units and recheck BG in 2 hours. If BG remains greater than 240, repeat 4 units (no more than three times) & call for new basal insulin orders. If less than 240 after two hours, give no insulin and resume prior schedule. Given 05/18/2016 9:41 PM EDT 2 Units Given 05/18/2016 8:16 AM EDT 2 Units Le ft Arm Given 05/17/2016 10:30 PM EDT 2 Units lactobacillus (BACID) tablet 1 tablet 1 tablet, Oral, DAILY, First dose on Diamond 05/17/16 at 1500, Until Discontinued, Routine Given 05/20/2016 8:58 AM EDT 1 tablet Given 05/19/2016 8:08 AM EDT 1 tablet Given 05/18/2016 8:56 AM EDT 1 tablet metFORMIN (GLUCOPHAGE) tablet 1,000 mg 1,000 mg, Oral, 2 TIMES DAILY WITH MEALS, First dose on Diamond 05/17/16 at 1700, Until Discontinued, Routine Given 05/20/2016 8:58 AM EDT 1,000 mg Given 05/19/2016 5:03 PM EDT 1,000 mg Given 05/19/2016 8:08 AM EDT 1,000 mg ondansetron (ZOFRAN) injection 4 mg 4 mg, Intravenous, EVERY 8 HOURS PRN, Starting on Diamond 05/17/16 at 1250, Until 05/20/16 at 1206, Nausea, May repeat times one in 30 minutes if ineffective. If multiple antiemetics are ordered, use ondanstron first, Recovery (Recovery-Hospital Unit) ondansetron (ZOFRAN) tablet 4 mg 4 mg, Oral, EVERY 8 HOURS PRN, Starting on Diamond 05/17/16 at 1250, Until 05/20/16 at 1206, Nausea, Vomiting, If multiple antiemetics are ordered, use ondansetron first. PO Preferred. If patient unable to take PO, may give IV if ordered. May repeat times one in 45 minutes if ineffective., Recovery (Recovery-Hospital Unit), Routine oxyCODONE (ROXICODONE) immediate release tablet 10 mg 10 mg, Oral, EVERY 4 HOURS PRN, Starting on Diamond 05/17/16 at 1250, Until 05/20/16 at 1206, Pain, severe pain 8-10, Routine Given 05/17/2016 5:52 PM EDT 10 mg Given 05/17/2016 1:35 PM EDT 10 mg oxyCODONE (ROXICODONE) immediate release tablet 5 mg 5 mg, Oral, EVERY 4 HOURS PRN, Starting on Diamond 05/17/16 at 1250, Until 05/20/16 at 1206, Pain, moderate pain 4-7, Routine Given 05/19/2016 5:50 AM EDT 5 mg Given 05/19/2016 12:58 AM EDT 5 mg Given 05/18/2016 9:41 PM EDT 5 mg senna (SENOKOT) tablet 8.6 mg 8.6 mg, Oral, 2 TIMES DAILY, First dose on 05/19/16 at 1000, Until Discontinued, Routine Given 05/20/2016 8:59 AM EDT 8.6 mg Given 05/19/2016 9:24 PM EDT 8.6 mg Given 05/19/2016 11:47 AM EDT 8.6 mg sodium chloride 0.9 % flush 5 mL 5 mL, Intravenous, 2 TIMES DAILY, First dose on Diamond 05/17/16 at 1315, Until Discontinued, Recovery (Recovery-Hospital Unit), Routine Given 05/19/2016 9:29 PM EDT 5 mLs Given 05/19/2016 8:09 AM EDT 5 mLs Given 05/18/2016 9:42 PM EDT 5 mLs terazosin (HYTRIN) capsule 2 mg 2 mg, Oral, NIGHTLY, First dose on Diamond 05/17/16 at 2100, Until Discontinued, Routine Given 05/19/2016 9:24 PM EDT 2 mg Given 05/18/2016 9:41 PM EDT 2 mg Given 05/17/2016 9:27 PM EDT 2 mg venlafaxine (EFFEXOR-XR) XR Capsule 75 mg 75 mg, Oral, DAILY, First dose on Diamond 05/17/16 at 1400, Until Discontinued, DO NOT CRUSH OR OPEN, Routine Given 05/20/2016 8:58 AM EDT 75 mg Given 05/19/2016 8:08 AM EDT 75 mg Given 05/18/2016 8:55 AM EDT 75 mg documented in this encounter Active and Recently Administered Medications Times are shown in EDT. Scheduled Medication Order 05/18/2016 05/19/2016 05/20/2016 acetaminophen (TYLENOL) tablet 650 mg 650 mg, Oral, EVERY 6 HOURS SCHEDULED, First dose on Diamond 05/17/16 at 1300, Until Discontinued, Maximum dose of acetaminophen is 4000 mg from all sources in 24 hours., Routine 0121 (Given - Provider: Ana Whitlock RN)0855 (Given - Provider: Shea Dixon RN)1218 (Given - Provider: Shea Dixon RN)1701 (Given - Provider: Shea Dixon RN) 0058 (Given - Provider: Aida Malone RN)0549 (Given - Provider: Aida Malone RN)1147 (Given - Provider: Shea Dixon RN)1703 (Given - Provider: Shea Dixon RN) 0116 (Given - Provider: Dianelys Farrell RN)0620 (Given - Provider: Dianelys Farrell RN) ceFAZolin (ANCEF) 1g in dextrose 5% 50mL (COMPLETED) 1,000 mg (1 g), Intravenous, EVERY 8 HOURS, 2 doses, First dose on Sat05/17/16 at 1600, Last dose on Sat05/18/16 at 0000, Administer over 30 Minutes, *Beta-lactam based antibiotics (eg. Ampicillin, Cefazolin, Aztreonam) should be administered within 4 hours of the preceding intraoperative dose. *Vancomycin, Flouroquinolones, Clindamycin, Gentamicin, and Metronidazole should be administered within 8 hours of the preceding intraoperative dose., Recovery (Recovery-Hospital Unit), Indication for (Active or Suspected): Prophylaxis 0121 (Given - Provider: Ana Whitlock RN) ceFAZolin (ANCEF) 1g in dextrose 5% 50mL 1,000 mg (1 g), Intravenous, EVERY 8 HOURS, First dose on Sat05/18/16 at 0900, Until Discontinued, Administer over 30 Minutes, Indication for (Active or Suspected): Prophylaxis 0949 (Given - Provider: Shea Dixon RN)1655 (Given - Provider: Shea Dixon RN) 0058 (Given - Provider: Aida Malone RN)0809 (Given - Provider: Shea Dixon RN)1703 (Given - Provider: Shea Dixon RN) 0116 (Given - Provider: Dianelys Farrell RN)0900 (Not Given - Provider: Tatianna Pickens RN - Reason: See comment - Comment: IV removed r/t d/c order) DILTiazem (DILACOR XR) XR capsule 240 mg 240 mg, Oral, DAILY, First dose on Sat05/17/16 at 1400, Until Discontinued, DO NOT CRUSH OR OPEN, Routine 0855 (Given - Provider: Shea Dixon RN) 0808 (Given - Provider: Shea Dixon RN) 0858 (Given - Provider: Tatianna Pickens, FRACISCO) docusate sodium (COLACE) capsule 100 mg 100 mg, Oral, 2 TIMES DAILY, First dose on Sat05/17/16 at 1315, Until Discontinued, Routine 0856 (Given - Provider: Shea Dixon RN)2140 (Given - Provider: Aida Malone RN) 08 (Given - Provider: Shea Dixon RN)2123 (Given - Provider: Dianelys Farrell, FRACISCO) 0859 (Given - Provider: Tatianna Pickens, RN) enoxaparin (LOVENOX) injection 40 mg 40 mg, Subcutaneous, DAILY, First dose on Sat05/18/16 at 0900, Until Discontinued, Routine 0857 (Given - Provider: Shea Dixon RN) 0808 (Given - Provider: Shea Dixon RN) 0859 (Given - Provider: Tatianna Pickens, FRACISCO) insulin aspart (NovoLOG) VIAL injection 1-4 Units(Linked Group 1) 1-4 Units, Subcutaneous, 4 TIMES DAILY BEFORE MEALS & NIGHTLY, First dose (after last modification) on Sat05/17/16 at 2215, Until Discontinued, CORRECTION BOLUS Sensitive to insulin lean patient or total daily dose of all insulin needed to achieve glycemic control less than 30 units BG 140 - 160 Give 1 unit BG 161 - 200 Give 2 units BG 201 - 240 Give 3 units BG greater than 240, give 4 units and recheck BG in 2 hours. If BG remains greater than 240, repeat 4 units (no more than three times) & call for new basal insulin orders. If less than 240 after two hours, give no insulin and resume prior schedule. 0816 (Given - Provider: Shea Dixon RN - Comment: bs [phone] (Not Given - Provider: Shea Dixon RN - Reason: Contraindicated - Comment: BS 137, insulin not indicated)1630 (Not Given - Provider: Shea Dixon RN - Reason: Order parameters not met - Comment: BS 125, insulin not indicated)2140 (Given - Provider: Aida Malone RN) 0730 (Not Given - Provider: Shea Dixon RN - Reason: Order parameters not met - Comment: BS 134, insulin not indicated)1130 (Hold - Provider: Shea Dixon RN - Reason: Order parameters not met - Comment: bs 139, insulin not indicated)1630 (Not Given - Provider: Shea Dixon RN - Reason: Order parameters not met - Comment: BS 120, insulin not indicated)2100 (Not Given - Provider: Dianelys Farrell RN - Reason: Order parameters not met) 0730 (Not Given - Provider: Tatianna Pickens RN - Reason: Order parameters not met) lactobacillus (BACID) tablet 1 tablet 1 tablet, Oral, DAILY, First dose on Diamond 05/17/16 at 1500, Until Discontinued, Routine 0856 (Given - Provider: Shea Dixon RN) 0808 (Given - Provider: Shea Dixon RN) 0858 (Given - Provider: Tatianna Pickens RN) metFORMIN (GLUCOPHAGE) tablet 1,000 mg 1,000 mg, Oral, 2 TIMES DAILY WITH MEALS, First dose on Diamond 05/17/16 at 1700, Until Discontinued, Routine 0854 (Given - Provider: Shea Dixon RN)1654 (Given - Provider: Shea Dixon RN) 0808 (Given - Provider: Shea Dixon RN)1703 (Given - Provider: Shea Dixon RN) 0858 (Given - Provider: Tatianna Pickens, FRACISCO) senna (SENOKOT) tablet 8.6 mg 8.6 mg, Oral, 2 TIMES DAILY, First dose on Sat05/19/16 at 1000, Until Discontinued, Routine 1147 (Given - Provider: Shea Dixon RN)2124 (Given - Provider: Dianelys Farrell, FRACISCO) 0859 (Given - Provider: Tatianna Pickens, FRACISCO) sodium chloride 0.9 % flush 5 mL 5 mL, Intravenous, 2 TIMES DAILY, First dose on Diamond 05/17/16 at 1315, Until Discontinued, Recovery (Recovery-Hospital Unit), Routine 0856 (Given - Provider: Shea Dixon RN)2142 (Given - Provider: Aida Malone RN) 0809 (Given - Provider: Shea Dixon RN)2129 (Given - Provider: Dianelys Farrell, FRACISCO) 0900 (Not Given - Provider: Tatianna Pickens RN - Reason: See comment - Comment: IV site removed r/t d/c) terazosin (HYTRIN) capsule 2 mg 2 mg, Oral, NIGHTLY, First dose on Diamond 05/17/16 at 2100, Until Discontinued, Routine 2140 (Given - Provider: Aida Malone, RN) 2123 (Given - Provider: Dianelys Farrell, FRACISCO) venlafaxine (EFFEXOR-XR) XR Capsule 75 mg 75 mg, Oral, DAILY, First dose on Diamond 05/17/16 at 1400, Until Discontinued, DO NOT CRUSH OR OPEN, Routine 0855 (Given - Provider: Shea Dixon RN) 0808 (Given - Provider: Shea Dixon RN) 0858 (Given - Provider: Tatianna Pickens, FRACISCO) PRN Medication Order 05/18/2016 05/19/2016 05/20/2016 bisacodyl (DULCOLAX) suppository 10 mg 10 mg, Rectal, DAILY PRN, Starting on Diamond 05/17/16 at 1250, Until 05/20/16 at 1206, Constipation, Administer if needed per patient's routine or if no bowel movement within 48 hours to achieve: 1) One bowel movement at least every 48 hours, AND 2) Without straining. If multiple bowel medications ordered, consider adding if docusate or milk of magnesia not sufficient., Routine 1703 (Given - Provider: Shea Dixon RN) dextrose 50% injection 25-50 mL(Linked Group 2) 25-50 mL (12.5-25 g), Intravenous, EVERY 1 HOUR PRN, Starting on Diamond 05/17/16 at 1250, Until 05/20/16 at 1206, Low blood sugar, For BG 50-70: 120 mL Juice or Regular (not diet) soda OR 12.5 gram (25 mL) Dextrose 50% IV OR, if no IV access, 1 mg Glucagon IM. Recheck BG in 30 minutes. May repeat juice, dextrose or glucagon once per episode For BG less than 50: 240 mL Juice or Regular (not diet) soda OR 25 grams (50 mL) Dextrose 50% IV OR, if no IV access, 1 mg Glucagon IM. Recheck BG in 30 minutes. May repeat juice, dextrose, or glucagon once per episode. To avoid extravasation, push Dextrose 50% SLOWLY (3 mL over 1 minute) in a patent, running IV, preferably a central line. For persistent hypoglycemia, consider longer-acting treatment for the duration of the active insulin., Routine glucagon (human recombinant) injection 1 mg(Linked Group 2) 1 mg, Intramuscular, EVERY 1 HOUR PRN, Low blood sugar, Starting on Diamond 05/17/16 at 1250, Until 05/20/16 at 1206, For BG 50-70: 120 mL Juice or Regular (not diet) soda OR 12.5 gram (25 mL) Dextrose 50% IV OR, if no IV access, 1 mg Glucagon IM. Recheck BG in 30 minutes. May repeat juice, dextrose or glucagon once per episode For BG less than 50: 240 mL Juice or Regular (not diet) soda OR 25 grams (50 mL) Dextrose 50% IV OR, if no IV access, 1 mg Glucagon IM. Recheck BG in 30 minutes. May repeat juice, dextrose, or glucagon once per episode. To avoid extravasation, push Dextrose 50% SLOWLY (3 mL over 1 minute) in a patent, running IV, preferably a central line. For persistent hypoglycemia, consider longer-acting treatment for the duration of the active insulin. HYDROmorphone (DILAUDID) injection 0.2 mg 0.2 mg, Intravenous, EVERY 2 HOURS PRN, Starting on Diamond 05/17/16 at 1250, Until 05/20/16 at 1206, Pain, pain not relieved by oral oxycodone, Routine lidocaine (XYLOCAINE) 10 mg/mL (1 %) injection 3 mg 3 mg (0.3 mL), Subcutaneous, ONCE PRN, 1 dose, Starting on Diamond 05/17/16 at 1250, Until 05/20/16 at 1206, for discomfort with PIV insertion, Recovery (Recovery-Hospital Unit), Routine ondansetron (ZOFRAN) injection 4 mg(Linked Group 3) 4 mg, Intravenous, EVERY 8 HOURS PRN, Starting on Diamond 05/17/16 at 1250, Until 05/20/16 at 1206, Nausea, May repeat times one in 30 minutes if ineffective. If multiple antiemetics are ordered, use ondanstron first, Recovery (Recovery-Hospital Unit) ondansetron (ZOFRAN) tablet 4 mg(Linked Group 3) 4 mg, Oral, EVERY 8 HOURS PRN, Starting on Diamond 05/17/16 at 1250, Until 05/20/16 at 1206, Nausea, Vomiting, If multiple antiemetics are ordered, use ondansetron first. PO Preferred. If patient unable to take PO, may give IV if ordered. May repeat times one in 45 minutes if ineffective., Recovery (Recovery-Hospital Unit), Routine oxyCODONE (ROXICODONE) immediate release tablet 10 mg 10 mg, Oral, EVERY 4 HOURS PRN, Starting on Diamond 05/17/16 at 1250, Until 05/20/16 at 1206, Pain, severe pain 8-10, Routine oxyCODONE (ROXICODONE) immediate release tablet 5 mg 5 mg, Oral, EVERY 4 HOURS PRN, Starting on Diamond 05/17/16 at 1250, Until 05/20/16 at 1206, Pain, moderate pain 4-7, Routine 0604 (Given - Provider: Ana Whitlock RN)0854 (Given - Provider: Shea Dixon RN)2141 (Given - Provider: Aida Malone, FRACISCO) 0058 (Given - Provider: Aida Malone RN)0550 (Given - Provider: Adia Malone RN) sodium chloride 0.9 % flush 5-20 mL 5-20 mL, Intravenous, EVERY 1 MIN PRN, Starting on Diamond 05/17/16 at 1250, Until 05/20/16 at 1206, flush, Flush pertains to all indwelling lines. Flush per protocol found in the job aid using the link provided on this medication record., Recovery (Recovery-Hospital Unit), Routine Linked Groups Order Group 1: POCT Fingerstick Glucose (CANCELED) Routine, 4 TIMES DAILY BEFORE MEALS & AT BEDTIME, First occurrence on Diamond 05/17/16 at 2200, Until Specified, Consider choosing FOUR TIMES A DAY BEFORE MEALS AND AT BEDTIME as frequency for: Patients who have a good hypoglycemia awareness And insulin aspart (NovoLOG) VIAL injection 1-4 UnitsJump to med 1-4 Units, Subcutaneous, 4 TIMES DAILY BEFORE MEALS & NIGHTLY, First dose (after last modification) on Diamond 05/17/16 at 2215, Until Discontinued, CORRECTION BOLUS Sensitive to insulin lean patient or total daily dose of all insulin needed to achieve glycemic control less than 30 units BG 140 - 160 Give 1 unit BG 161 - 200 Give 2 units BG 201 - 240 Give 3 units BG greater than 240, give 4 units and recheck BG in 2 hours. If BG remains greater than 240, repeat 4 units (no more than three times) & call for new basal insulin orders. If less than 240 after two hours, give no insulin and resume prior schedule. Group 2: dextrose 50% injection 25-50 mLJump to med 25-50 mL (12.5-25 g), Intravenous, EVERY 1 HOUR PRN, Starting on Diamond 05/17/16 at 1250, Until 05/20/16 at 1206, Low blood sugar, For BG 50-70: 120 mL Juice or Regular (not diet) soda OR 12.5 gram (25 mL) Dextrose 50% IV OR, if no IV access, 1 mg Glucagon IM. Recheck BG in 30 minutes. May repeat juice, dextrose or glucagon once per episode For BG less than 50: 240 mL Juice or Regular (not diet) soda OR 25 grams (50 mL) Dextrose 50% IV OR, if no IV access, 1 mg Glucagon IM. Recheck BG in 30 minutes. May repeat juice, dextrose, or glucagon once per episode. To avoid extravasation, push Dextrose 50% SLOWLY (3 mL over 1 minute) in a patent, running IV, preferably a central line. For persistent hypoglycemia, consider longer-acting treatment for the duration of the active insulin., Routine Or glucagon (human recombinant) injection 1 mgJump to med 1 mg, Intramuscular, EVERY 1 HOUR PRN, Low blood sugar, Starting on Diamond 05/17/16 at 1250, Until 05/20/16 at 1206, For BG 50-70: 120 mL Juice or Regular (not diet) soda OR 12.5 gram (25 mL) Dextrose 50% IV OR, if no IV access, 1 mg Glucagon IM. Recheck BG in 30 minutes. May repeat juice, dextrose or glucagon once per episode For BG less than 50: 240 mL Juice or Regular (not diet) soda OR 25 grams (50 mL) Dextrose 50% IV OR, if no IV access, 1 mg Glucagon IM. Recheck BG in 30 minutes. May repeat juice, dextrose, or glucagon once per episode. To avoid extravasation, push Dextrose 50% SLOWLY (3 mL over 1 minute) in a patent, running IV, preferably a central line. For persistent hypoglycemia, consider longer-acting treatment for the duration of the active insulin. Group 3: ondansetron (ZOFRAN) tablet 4 mgJump to med 4 mg, Oral, EVERY 8 HOURS PRN, Starting on Diamond 05/17/16 at 1250, Until 05/20/16 at 1206, Nausea, Vomiting, If multiple antiemetics are ordered, use ondansetron first. PO Preferred. If patient unable to take PO, may give IV if ordered. May repeat times one in 45 minutes if ineffective., Recovery (Recovery-Hospital Unit), Routine Or ondansetron (ZOFRAN) injection 4 mgJump to med 4 mg, Intravenous, EVERY 8 HOURS PRN, Starting on Diamond 05/17/16 at 1250, Until 05/20/16 at 1206, Nausea, May repeat times one in 30 minutes if ineffective. If multiple antiemetics are ordered, use ondanstron first, Recovery (Recovery- Hospital Unit) documented in this encounter Care Teams Credit Clerk Relationship Specialty Start Date End Date Manolo Castro MD [address] [place] [address] PCP - General 05/14/12 04/21/17 documented as of this encounter
--- OUTSIDE RECORDS SUMMARY | 2024-04-27 14:54 | XMS_ITS | Encounter Summary ---
Author Organization [facility] Address [facility] [place] [address] Care Team Providers Care Staff Climate Scientist Name Role Phone Manolo Castro MD Primary Care Provider [phone] Reason for Visit * Reason Onset Date Comments Bumped Appointment 05/10/2016 Encounter Details Date Type Department Care Team (Late st Contact Info) Description 05/10/2016 Telephone [place] [address] Pablo Handy PA [facility] [place] [address] Bumped Appointment Social History Tobacco Use Types Packs/Day Years [...] encounter Miscellaneous Notes * Telephone Encounter - Gunjan Curtis - 05/11/2016 2:22 PM EDT Patient rescheduled * Telephone Encounter - Gunjan Curtis - 05/10/2016 11:00 AM EDT LMOM #1 to call to reschedule guillermoed 06/08 appointment with Pablo. documented in this encounter Plan of Treatment Upcoming Encounters Date Type Department Care Team (Late st Contact Info) Description 05/15/2024 10:00 AM EDT [place] [address] Catrachito Mehta MD [facility] [place] [place] [address] documented as of this encounter Visit Diagnoses Not on filedocumented in this encounter Care Teams Staff Climate Scientist Relationship Specialty Start Date End Date Manolo Castro MD [address] [place] [address] PCP - General 05/14/12 04/21/17 documented as of this encounter
--- OUTSIDE RECORDS SUMMARY | 2024-04-27 14:54 | XMS_ITS | Encounter Summary ---
Author Organization [facility] Address [facility] [place] [address] Care Team Providers Care Rn Navigator Name Role Phone Manolo Castro MD Primary Care Provider [phone] Encounter Details Date Type Department Care Team (Latest Contact Info) Description 05/07/2014 11:54 AM EDT - 05/07/2014 11:59 PM EDT Hospital Encounter XRay at [address] [place] [address] S/P knee replacement, bilateral Social History Tobacco Use Types Packs/Day Years [...] Sig Dispensed Refills Start Date End Date DILTiazem (DILACOR XR) 240 mg 24 hr [...] nightly. lovastatin (MEVACOR) 20 mg tablet 04/24/2010 amoxicillin (AMOXIL) 500 mg capsuleIndications:S/P knee replacement, bilateral,Knee joint replacement by other means Take 4 capsules by mouth once as needed for up to 1 dose. Take by mouth. Take one hour before dental procedure.. 8 capsule 2 05/07/2014 05/20/2016 warfarin (COUMADIN) 5 mg tablet Take 1 [...] the long acting Effexor again. 02/12/2014 04/22/2017 ursodiol (ACTIGALL) 300 mg capsule Take 1 capsule by mouth 2 times daily for 180 days. Start at 2 weeks post op on 02/08 and take until 08/07/14. 180 tablet 1 02/08/2014 08/07/2014 omeprazole (PRILOSEC) 20 mg capsule Take 1 capsule by mouth daily for 90 days. Start at discharge to prevent ulcer. Refill Rx if have heartburn 90 capsule 0 03/13/2014 06/11/2014 cyanocobalamin, vitamin B-12, (VITAMIN B-12) 250 mcg tablet Take 250 mcg by mouth daily. 12/08/2015 ramipril (ALTACE) 10 mg capsule Take 10 mg by mouth daily. 12/08/2015 metFORMIN (GLUCOPHAGE) 500 mg tablet Take 1,000 mg by mouth 2 times daily (with meals). 03/25/2019 documented as of this encounter Plan of Treatment Upcoming Encounters Date Type Department Care Team (Late st Contact Info) Description 05/15/2024 10:00 AM EDT [place] [address] Catrachito Mehta MD [facility] [place] [place] [address] documented as of this encounter Procedures Procedure Name Priority Date/Time Associated Diagnosis Comments XR KNEE AP AND LAT BILAT Routine 05/07/2014 12:06 PM EDT documented in this encounter Results * XR knee bilateral 1 or 2 view (05/07/2014 12:06 PM EDT) Anatomical Region Laterality Modality Knee Bilateral Radiographic Sia ging 05/07/2014 12:0 6 PM EDT Narrative 05/07/2014 3:51 PM EDT Examination KNEE BILATERAL 1 OR 2 VIEWS Clinical History Bilateral TKA DOS 12/16/2002 Comparison AP standing and lateral views of the knees on 05/14/2001 Technique AP standing and lateral views of the knees Findings Unchanged appearance of bilateral total knee arthroplasties. Heterotopic bone formation at the left lateral femoral condyle, and bilateral tibial plateaus are unchanged. However there is slightly increased calcific densities within the joint spacers, right more than left. No fractures, periprosthetic lucency, malalignment, or joint effusion. ?? Impression Unchanged bilateral total knee arthroplasties with no complications. Film and interpretation reviewed by the attending Procedure Note Aleksey Huerta MD - 05/07/2014 Examination KNEE BILATERAL 1 OR 2 VIEWS Clinical History Bilateral TKA DOS 12/16/2002 Comparison AP standing and lateral views of the knees on 05/14/2001 Technique AP standing and lateral views of the knees Findings Unchanged appearance of bilateral total knee arthroplasties. Heterotopicbone formation at the left lateral femoral condyle, and bilateral tibialplateaus are unchanged. However there is slightly increased calcific densitieswithin the joint spacers, right more than left. No fractures, periprostheticlucency, malalignment, or joint effusion. Impression Unchanged bilateral total knee arthroplasties with no complications. Film and interpretation reviewed by the attending Samson Kingsley MD IMG DX ORDERABLES documented in this encounter Visit Diagnoses Diagnosis S/P knee replacement, bilateral documented in this encounter Care Teams Rn Navigator Relationship Specialty Start Date End Date Manolo Castro MD [address] [place] [address] PCP - General 05/14/12 04/21/17 documented as of this encounter
--- OUTSIDE RECORDS SUMMARY | 2024-04-27 14:54 | XMS_ITS | Encounter Summary ---
Author Organization [facility] [place] [address] Care Team Providers Care Ornamental Ironworker Helper Name Role Phone Manolo Castro MD Primary Care Provider [phone] Encounter Details Date Type Department Care Team (Late Contact Info) Description 01/13/2016 Telephone [place] [phone] Kenyatta Mcclrue Social History Tobacco Use Types Packs/Day Years [...] encounter Miscellaneous Notes * Telephone Encounter - Kenyatta Mcclure - 01/13/2016 1:26 PM EDT I returned PTs voicemail to reschedule an appointment with Dr. Membreno but his voicemail was full. documented in this encounter Plan of Treatment Upcoming Encounters Date Type Department Care Team (Late Contact Info) Description 05/15/2024 10:00 AM EDT [place] [phone] Catrachito Mehta MD [facility] [place] [address] documented as of this encounter Visit Diagnoses Not on filedocumented in this encounter Care Teams Ornamental Ironworker Helper Relationship Specialty Start Date End Date Manolo Castro MD [address] [place] [address] PCP - General 05/14/12 04/21/17 documented as of this encounter
--- OUTSIDE RECORDS SUMMARY | 2024-04-27 14:54 | XMS_ITS | Encounter Summary ---
Author Organization [facility] Address [facility] [place] [address] Care Team Providers Care Centrifugal Machine Tender Name Role Phone Manolo Castro MD Primary Care Provider [phone] Reason for Visit * Reason Comments Follow-up S/P SPIKE SURG 02/08/14 Encounter Details Date Type Department Care Team (Late st Contact Info) Description 03/02/2014 3:40 PM EDT Office Visit [place] [address] Wally Pfeiffer MD [facility] [address] Post-operative state (Primary Dx) Discharge Disposition: Home Social History Tobacco Use [...] Sign Reading Time Taken Comments Blood Pressure 139/83 03/02/2014 3:24 PM EDT Pulse 76 03/02/2014 3:24 PM EDT Temperature - - Respiratory Rate - - Oxygen Saturation 100% 03/02/2014 3:24 PM EDT Inhaled Oxygen Concentration - - Weight 100.5 kg (221 lb 9.6 oz) 03/02/2014 3:24 PM EDT Height - - Body Mass Index 32.72 02/08/2014 8:41 PM EDT documented in this encounter Patient Instructions * Patient Instructions* Rowan Deutsch, RD - 03/02/2014 3:27 PM EDT Bariatric Surgery Program First Post-operative Follow up visit Contact information: [facility] Admin coordinator Tracy: [phone] Dietitian: [phone] Surgeons/ nurse practitioner: [phone] Nurse line: [phone] Your excess body weight lost: 35% Next follow up visit: at 4 months post-op Testing: Labwork will be done at your 4 month post op check. If you have labwork done by your doctor before that date, please have it sent to the Bariatric Surgery Program. Post surgery Medications: 1. Medication to prevent ulcer, as prescribed prior to surgery, needs to continue until you are at least 3 months post surgery, or as indicated by your primary care doctor. 2. If you have a gallbladder, continue to take Ursodiol 300 mg twice daily for a total of 6 months after surgery to prevent gallstones from forming, and to shrink any gallstones that may be present. Vitamin and mineral supplementation recommendations: The following vitamins are recommended: Multivitamin with minerals twice daily Vitamin B12 500 mcg by mouth once daily Calcium citrate 600 mg with Vitamin D 400 units twice daily (600 mg in AM and 600 mg in PM- 2 pillstwice a day) Iron with Vitamin C, 50-66 mg once daily (take iron with vitamin C 250 mg to help with absorption) only if you have regular periods, iron deficiency or anemia. Check your blood sugars at least once a day, rotating times, including first thing in the morning, before a meal, 2 hours after a meal, or at bedtime. Nutrition recommendations: - Your Daily Goals: 3 meals per day. Snacks only if physically hungry (limit to 1-2 per day and choose protein or fruit) 60 grams per day (20 grams per meal) 48-64 oz of non-caloric and hydrating fluids per day (6-8, 8 oz cups) Activity: Aim for 30 minutes of exercise daily, 5 days a week of both cardio and strength training exercises. Alcohol: should be used sparingly, no more than one drink per occasion. Alcohol is a source of empty calories and can cause ulcers and vitamin and mineral deficiencies. Studies have noted that there is an increased risk of alcohol dependence after surgery. control for women of child bearing age: is recommended for at least 18-24 months after surgery. Call us: If you have concerns. If you have unexplained abdominal pain. if you see blood in your stool or vomit blood If you have prolonged vomiting Post Surgery Support Group: Our post surgery support group meets on the first Saturday of every month from 1-2 PM at [facility] Internet resources: Www.PerMicro www.QuizFortune Www.Apprenda.Zhaopin Www.ChoosemyAcarix.gov www.DoctorC.Zhaopin Books: - Recipes for Life after Weight Loss Surgery by Claudia Mcdonald (2012) - Shrink Yourself by Dr Darrel Kaur documented in this encounter Progress Notes * Rowan Deutsch RD - 03/02/2014 8:17 AM EDT BSP Nutrition First Post-operative Follow up SUBJECTIVE: Topics Discussed/Patient Concerns: -Has had a cold for past week. Otherwise doing excellent. -Still taking metformin and glyburide. Has not checked BG since surgery. Is supposed to take glyburide twice daily, just taking once at night. Denies s/s hypoglycemia. Does have equipment to check BGat home. -Still using CPAP. OBJECTIVE: Date of Bariatric Surgery: 02/08/14 Type of Bariatric Surgery: laparoscopic Aviva-en-Y Gastric Bypass Weight History: Date Weight (lbs) %EWL HT BMI Comments 10/02/13 266 Highest Weight 10/02/13 266 68 40.4 Initial program weight 11/03/13 257 68.9 38.1 1st pre-op visit 02/08/14 247 69 34 Surgery 03/02/14 221 35% 32.7 1 month post-op 4 months post-op Goal Weight: 170-175#. 1/ body weight loss= 172#. History of obesity since: age 44 Social history: , 3 grown children, 2 stepchildren. Eugene live with one of his sons, Momo(age 36), who is on disability. Close with his 3 siblings, though they live in different states. Biggest support is his son Momo. 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 MEDICATIONS: Taking ulcer prevention medication: yes Taking Ursodiol (if appropriate): yes Vitamin/Mineral Supplements (reported by patient): Supplement Type Brand/Form Dosage/Amount Frequency Comments Multivitamin liquid 1 dose Twice daily Calcium citrate 2 Twice daily Vitamin B12 liquid 1 dose (500mcg) daily Iron n/a Vitamin D3 Daily Oral Intake: Stage III for past few days Breakfast Baby oatmeal- plans to go to regular oatmeal, made w 1% milk (3/4 cup)/egg AM Snack none Lunch Baby turkey sausage (4oz) PM Snack Ensure protein drink - has 1/2 and uses scoop of plain whey protein- does this twice a day Dinner [place] squash soup- added unflavored protein powder/cream soups/shrimp (4-5 pieces) HS Snack none Protein/ estimated grams/day: 60-80grams/day Hydrating fluids/ oz/ day: 50+ oz water, occasionally milk, Soda: none ETOH: none Caffeine: none Meals per day: 3/day Other: ?? Feels full/satisfied after eating: yes ?? Spends at least 20 minutes eating each meal: yes ?? Vomiting/ regurgitation: denies ?? Nausea: denies ?? Constipation/diarrhea: denies Food Allergies/Intolerances: None Exercise: Walking up and down 15 stairs to his apartment. Walking with son daily x 60 minutes ASSESSMENT: Patient s/p laparoscopic Aviva-en-Y Gastric Bypass on 02/08/14 with 35% EWL. Patient is meeting protein and fluid goals. Compliant with all supplements and doing well with physical activity. PLAN: ?? Evaluation by surgeon today ?? Provided support/encouragement and reinforced importance of meeting nutritional goals. ?? Reviewed nutrition and vitamin and mineral supplement recommendations (see patient instructions). ?? Written recommendations provided. Patient agreed with these and verbalized adequate understanding ?? follow up at 4 months post surgery with labwork. documented in this encounter Plan of Treatment Upcoming Encounters Date Type Department Care Team (Late st Contact Info) Description 05/15/2024 10:00 AM EDT [place] [address] Catrachito Mehta MD [facility] [place] [address] documented as of this encounter Visit Diagnoses Diagnosis Post-operative state- Primary Other postprocedural status documented in this encounter Care Teams Centrifugal Machine Tender Relationship Specialty Start Date End Date Manolo Castro MD [address] [place] [address] PCP - General 05/14/12 04/21/17 documented as of this encounter
--- OUTSIDE RECORDS SUMMARY | 2024-04-27 14:54 | XMS_ITS | Encounter Summary ---
Author Organization Formerly [facility]1983 Address [facility] [place] [address] Care Team Providers Care Stock Broker Supervisor Name Role Phone Manolo Castro MD Primary Care Provider [phone] Encounter Details Date Type Department Care Team (Late Contact Info) Description 04/05/2014 Orders [place] [address] Denice Hurley LPN Social History Tobacco Use Types Packs/Day Years [...] 10:00 AM EDT Office [place] [address] Catrachito Mehta MD [facility] [place] [address] documented as of this encounter Visit Diagnoses Not on filedocumented in this encounter Care Teams Stock Broker Supervisor Relationship Specialty Start Date End Date Manolo Castro MD [address] [place] [address] PCP - General 05/14/12 04/21/17 documented as of this encounter
--- OUTSIDE RECORDS SUMMARY | 2024-04-27 14:54 | XMS_ITS | Encounter Summary ---
Author Organization [facility] Address [facility] [place] [address] Care Team Providers Care Environmental Quality Analyst Name Role Phone Manolo Castro MD Primary Care Provider [phone] Reason for Visit * Reason Comments Establish Care * Consultation (Routine) - Closed Specialty Diagnoses / Procedures Referred By Sonal dawson Referred To Contact General Surgery Diagnoses Abdominal panmonicaus Adis Membreno MD [facility] [place] [address] Stephanie Butcher MD [facility] [place] [address] Referral ID Status Reason Start Date Expiration Date V isits Requested Visits Authorized [id number] Closed Consult, Test & Treat 02/07/2016 02/06/2017 1 1 Encounter Details Date Type Department Care Team (Late st Contact Info) Description 03/22/2016 8:00 AM EDT Office Visit [place] [address] Stephanie Butcher MD [facility] [place] [address] Ventral hernia without obstruction or gangrene Social [...] Sign Reading Time Taken Comments Blood Pressure 139/82 03/22/2016 7:47 AM EDT Pulse 80 03/22/2016 7:47 AM EDT Temperature 36.6 ??C (97.9 ??F) 03/22/2016 7:47 AM ED T Respiratory Rate 18 03/22/2016 7:47 AM EDT Oxygen Saturation 99% 03/22/2016 7:47 AM EDT Inhaled Oxygen Concentration - - Weight 100.2 kg (221 lb) 03/22/2016 7:47 AM EDT Height 175.3 cm (5' 9) 03/22/2016 7:47 AM EDT Body Mass Index 32.64 03/22/2016 7:47 AM EDT documented in this encounter Progress Notes * Stephanie Butcher MD - 03/22/2016 10:26 AM EDT COPY: Adis Membreno M.D. Manolo Castro M.D. Patient's record Referring Physician: Adis Membreno M.D. Primary Care Physician: Manolo Castro M.D. Mr Rueda is a 65-year-old gentleman whom I was asked to see in consultation at the request of Dr. Membreno regarding a ventral hernia. He is a gentleman who had a previous Ronnell fundoplication, subsequent went on to have revision [...] repair at the same time as his panniculectomy. Past history includes a blood disorder, diabetes, cholecystectomy, vasectomy, tonsillectomy, and Ronnell revision followed by gastric bypass and diagnostic laparoscopy. He is . Denies tobacco use. No alcohol or drug intake. Review of systems reveals his weight has come down and has stabilized since surgery. His bowel and bladder habit is unchanged. He denies any fevers, chills, night sweats. No chest pain or shortness of breath on exertion. No issues with headaches, weakness, dizziness, or ataxia. On examination, one finds a healthy-appearing gentleman in no apparent distress. He still has a prominent obese abdomen. However, he does have an excessive pannus below. He has what appears to be a diastasis in his supraumbilical region, but I do believe there is a small ventral hernia within this area just above the umbilicus. We went over the risks and benefits of hernia repair and the possibility of mesh use depending on the extent of his herniation at the time of surgery. I think he is a reasonable candidate to do this at the same time as his panniculectomy, and we discussed risks and benefits and informed consent was obtained. We will see him in surgery unless things change. Total duration of our visit was 20 minutes, all spent in [id number] discussion with the patient. documented in this encounter Plan of Treatment Upcoming Encounters Date Type Department Care Team (Late st Contact Info) Description 05/15/2024 10:00 AM EDT Office [place] [address] Catrachito Mehta MD [facility] [place] [address] Scheduled Referrals Name Type Priority Associated Diagnoses Orde r Schedule Referral to General Surgery Outpatient Referral Routine Abdominal pannus Ordered: 02/07/2016 documented as of this encounter Visit Diagnoses Diagnosis Ventral hernia without obstruction or gangrene Ventral hernia, unspecified, without mention of obstruction or gangrene documented in this encounter Care Teams Environmental Quality Analyst Relationship Specialty Start Date End Date Manolo Castro MD [address] [place] [address] PCP - General 05/14/12 04/21/17 documented as of this encounter
--- OUTSIDE RECORDS SUMMARY | 2024-04-27 14:54 | XMS_ITS | Encounter Summary ---
Author Organization [facility] [place] [address] Care Team Providers Care Regulatory Affairs Intern Name Role Phone Manolo Castro MD Primary Care Provider [phone] Reason for Visit * Reason Onset Date Comments Follow-up 07/16/2014 Encounter Details Date Type Department Care Team (Late Contact Info) Description 07/16/2014 Telephone [place] [address] Narda Allen, PLANT FACILITIES TECHNICIAN [facility] [place] [address] Follow-up Social History Tobacco Use Types Packs/Day Years [...] encounter Miscellaneous Notes * Telephone Encounter - Narda Allen - 07/16/2014 3:42 PM EDT S/P revision of afsaneh to gastric bypass on 02/08/14, reop for bleeding 02/10/14 Eugene was contacted via lack of bariatric surgery follow up- he cancelled a April appt and has not rescheduled. Messages left on cell and home phones. documented in this encounter Plan of Treatment Upcoming Encounters Date Type Department Care Team (Late st Contact Info) Description 05/15/2024 10:00 AM EDT Office [place] [address] Catrachito Mehta MD [facility] [place] [address] documented as of this encounter Visit Diagnoses Not on filedocumented in this encounter Care Teams Regulatory Affairs Intern Relationship Specialty Start Date End Date Manolo Castro MD [address] [place] [address] PCP - General 05/14/12 04/21/17 documented as of this encounter
--- OUTSIDE RECORDS SUMMARY | 2024-04-27 14:54 | XMS_ITS | Encounter Summary ---
Author Organization [facility] Address [facility] [place] [address] Care Team Providers Care Piccoloist Name Role Phone Manolo Castro MD Primary Care Provider [phone] Encounter Details Date Type Department Care Team (Late Contact Info) Description 04/26/2014 Orders [place] [address] Rebecca Hamilton PA [facility] [place] [address] S/P knee replacement, bilateral (Primary Dx) Social History Tobacco Use Types [...] 10:00 AM EDT [place] [address] Catrachito Mehta MD [facility] [place] [address] documented as of this encounter Visit Diagnoses Diagnosis S/P knee replacement, bilateral- Primary documented in this encounter Care Teams Piccoloist Relationship Specialty Start Date End Date Manolo Castro MD [address] [place] [address] PCP - General 05/14/12 04/21/17 documented as of this encounter
--- OUTSIDE RECORDS SUMMARY | 2024-04-27 14:54 | XMS_ITS | Encounter Summary ---
Author Organization [facility] [place] [address] Care Team Providers Care Design Agent Name Role Phone Manolo Castro MD Primary Care Provider [phone] Reason for Visit * Reason Onset Date Comments No Show 08/05/2014 Encounter Details Date Type Department Care Team ([facility] Contact Info) Description 08/05/2014 Telephone [place] [address] Narda Allen, HUMAN RESOURCES HR REPRESENTATIVE [facility] [place] [address] No Show Social History Tobacco Use Types Packs/Day Years [...] * Telephone Encounter - Narda Allen - 08/05/2014 10:16 AM EDT Eugene was a no show to today's follow up visit. Message left documented in this encounter Plan of Treatment Upcoming Encounters Date Type Department Care Team (Late Contact Info) Description 05/15/2024 10:00 AM EDT Office [place] [address] Catrachito Mehta MD [facility] [place] [address] documented as of this encounter Visit Diagnoses Not on filedocumented in this encounter Care Teams Design Agent Relationship Specialty Start Date End Date Manolo Castro MD [address] [place] [address] PCP - General 05/14/12 04/21/17 documented as of this encounter
--- OUTSIDE RECORDS SUMMARY | 2024-04-27 14:54 | XMS_ITS | Encounter Summary ---
Author Organization Formerly [facility] Address [facility] [place] [address] Care Team Providers Care Physician General Practice Name Role Phone Manolo Castro MD Primary Care Provider [phone] Reason for Visit * Auth/Cert Specialty Diagnoses / Procedures Referred By Sonal dawson Referred To Contact Diagnoses Abdominal pannus Ventral hernia without obstruction or gangrene E65 - abdominal pannus K43.90 - Ventral hernia Proposed admit date of 05/17/2016 Panel 1 w/ Dr. Valencia for cpt code 26035 Panel 2 w/ Dr. Ortega for cpt code 66775 Procedures PRO EXCISE EXCESS SKIN TISSUE, ABDOMEN PRO REPAIR INCISIONAL HERNIA, REDUCIBLE PRO MUSCLE-SKIN FLAP, TRUNK ABDOMINOPLASTY Referral ID Status Reason Start Date Expiration Date Visits Re quested Visits Authorized [id number] 1 1 Encounter Details Date Type Department Care Team (Latest Contact Info) Description 05/17/2016 5:41 AM EDT - 05/20/2016 10:06 AM EDT Hospital Encounter 3 [place] [address] Karlene Valencia MD [facility] [place] [address] Chronic anticoagulation Discharge Disposition: Home with VNA Social History Tobacco Use Types Packs/Day Years [...] OR MULTIPLE performed by Wally Pfeiffer MDat [facility] ENDOSCOPY ??? Pro upper gi endoscopy, diagnostic 12/25/2013 EGD, UPPER GI ENDOSCOPY performed by Wally Pfeiffer MD at [facility] ENDOSCOPY ??? Pro lap, esophagus, other proc 02/08/2014 LAPAROSCOPIC REVISION OF DELROY FUNDOPLASTY performed by Wally Pfeiffer MD at [facility] OR ??? Pro lap gastric bypass/monica-en-y 02/08/2014 @LAPAROSCOPIC GASTROPLASTY, performed by Wally Pfeiffer MD at [facility] OR ??? Pro upper gi endoscopy, diagnostic 02/08/2014 ENDOSCOPY, UPPER GI, DIAGNOSTIC, WITH OR WITHOUT SPECIMENS performed by Wally Pfeiffer MD at [facility] MAIN OR ??? Pro lap, diagnostic abdomen 02/10/2014 LAPAROSCOPY, DIAGNOSTIC, ABDOMEN performed by Wally Pfeiffer MD at [facility] MAIN OR ??? Pro excise excess skin tissue, abdomen N/A 05/17/2016 ABDOMINOPLASTY performed by Karlene Valencia MD at [facility] MAIN OR ??? Pro repair incisional hernia, reducible N/A 05/17/2016 REPAIR INITIAL INCISIONAL OR VENTRAL HERNIA REDUCIBLE performed by Stephanie Ortega MD at [facility] LOVELY ??? N/A 05/17/2016 MODIFIER PANNICULECTOMY performed by Karlene Valencia MD at [facility] MAIN OR Procedures: 05/17/2016 Surgeon(s) and Role: [...] 11:20 AM Terri Mak APRN Plastic Surgery [phone] 06/15/2016 9:30 AM [facility] DX ROOM 4 [facility] Xray [phone] Please go to Tax Compliance Agent Area 3T ([place] Location). 06/15/2016 10:30 AM Pablo Handy PA Orthopaedics [phone] 06/19/2016 11:20 Stephanie Garces MD General Surgery [phone] Future Orders Complete By Expires Referral to Home Health - at DISCHARGE [TUI5846 CPT(R)] As directed Process Instructions: Scheduling Instructions: Comments: DOCUMENTATION FOR VNA SERVICES (INCLUDING THOSE PATIENTS WITH MEDICARE COVERAGE REQUIRING HOME VNA SERVICES AND/OR HOSPICE SERVICES) PATIENT'S LOCATION: Eugene Rueda [address] [place] [address] [address] [facility] [address] (home) Cell: Telephone Information: Director Plans's Name: self In discussion with the attending physician, it is certified that this patient is under their care and that they, or a Nurse Practitioner,Clinical Nurse specialist or Physician Sample Tester who is working directly with them, had [...] re health issues HOME HEALTH CARE AGENCY: [facility] PHONE: [phone] FAX: [phone] Start of care: 24 hours after discharge [...] MD [address] / [place] [address] All VNA agencies which cover the area [...] directed Process Instructions: Scheduling Instructions: Comments: Eugene Lopez [place] [address] [place] [address] (home) Telephone Information: Diagnosis: abdominal pannus with Unsteady gait Patient???s: Hgt: 5' 9 Wgt: 220lbs VENDOR: [employer] Ordering: Front wheel walker Deliver to [facility] room #: 321A Questions: Vendor Name/Contact [...] called in to our prescription line at [phone]. Narcotic renewals may be requested from 8am-4pm [...] Saturday 8 am to 5 pm Call [phone] On weekends or after hours: Call [phone] and ask the panelboard operator to page the Plastic Surgery Resident education coordinator. Follow-up plan: Future Appointments and Orders Future Appointments Provider Department Dept Phone 05/29/2016 11:20 AM Terri Mak APRN Plastic Surgery [phone] 06/15/2016 9:30 AM [facility] DX ROOM 4 [facility] Xray [phone] Please go to Tax Compliance Agent Area 3T ([place] Location). 06/15/2016 10:30 AM Pablo Handy PA Orthopaedics [phone] 06/19/2016 11:20 AM Stephanie Ortega MD General Surgery [phone] Future Orders Complete By Expires Referral to Home Health - at DISCHARGE [[id number] CPT(R)] As directed Process Instructions: Scheduling Instructions: Comments: DOCUMENTATION FOR VNA SERVICES (INCLUDING THOSE PATIENTS WITH MEDICARE COVERAGE REQUIRING HOME VNA SERVICES AND/OR HOSPICE SERVICES) PATIENT'S LOCATION: Eugene N[place] [facility] [address] (home) Cell: Telephone Information: Director Plans's Name: self In discussion with the attending physician, it is certified that this patient is under their care and that they, or a Nurse Practitioner,Clinical Nurse specialist or Physician Sample Tester who is working directly with them, had [...] re health issues HOME HEALTH CARE AGENCY: [facility] PHONE: [phone] FAX: [phone] Start of care: 24 hours after discharge [...] from this patient's PCP: MANOLO CASTRO MD [place] [address] / [facility] [address] All [facility] agencies which cover the area of patient's residence have been reviewed, either verbally harry writing, and patient/family have chosen the home health care agency noted Questions: Agency name and contact information: [facility] Patient location post discharge: home What services are requested: Registered Nurse Start date: 05/21/2016 Responsible MD post discharge contact info: Dr Valencia and PCP Demond standard [EQ135 Custom] As directed Process Instructions: Scheduling Instructions: Comments: Eugene Rueda [address] [facility] [address] (home) Telephone Information: Diagnosis: abdominal pannus with Unsteady gait Patient???s: Hgt: 5' 9 Wgt: 220lbs VENDOR: [employer] Ordering: Front wheel walker Deliver to pt's hospital room #: 321A Questions: Vendor Name/Contact information: [employer] VNA: Discharge Procedure Orders Referral to Home Health - at DISCHARGE Order Comments: DOCUMENTATION FOR VNA SERVICES (INCLUDING THOSE PATIENTS WITH MEDICARE COVERAGE REQUIRING HOME VNA SERVICES AND/OR HOSPICE SERVICES) PATIENT'S LOCATION: Eugene Rueda [facility] [facility] [address] (home) Cell: Telephone Information: Director Plans's Name: self In discussion with the attending physician, it is certified that this patient is under their care and that they, or a Nurse Practitioner,Clinical Nurse specialist or Physician Sample Tester who is working directly with them, had [...] re health issues HOME HEALTH CARE AGENCY: [facility] PHONE: [phone] FAX: [phone] Start of care: 24 hours after discharge [...] MD [address] / [place] [address] All VNA agencies which cover the area of patient's residence have been reviewed, either verbally harry writing, and patient/family have chosen the home health care agency noted Order Specific Question Answer Comments Agency name and contact information [facility] Patient location post discharge home What services are requested Registered Nurse Start date 05/21/2016 Responsible MD post discharge contact info Dr Valencia and PCP General Instructions None documented in this encounter Discharge Instructions * Patient Instructions* Tarik Schuster MD - 05/18/2016 2:40 PM EDT [...] 11:20 AM Terri Mak APRN Plastic Surgery [phone] 06/15/2016 9:30 AM [facility] DX ROOM 4 [facility] Xray [phone] Please go to Tax Compliance Agent Area 3T ([place] Location). 06/15/2016 10:30 AM Pablo Handy PA Orthopaedics [phone] 06/19/2016 11:20 AM Stephanie Ortega MD General Surgery [phone] Future Orders Complete By Expires Referral to Home Health - at DISCHARGE [[id number] CPT(R)] As directed Process Instructions: Scheduling Instructions: Comments: DOCUMENTATION FOR VNA SERVICES (INCLUDING THOSE PATIENTS WITH MEDICARE COVERAGE REQUIRING HOME VNA SERVICES AND/OR HOSPICE SERVICES) PATIENT'S LOCATION: Eugene Ninonigel [address] [place] [address] (home) Cell: Telephone Information: Director Plans's Name: self In discussion with the attending physician, it is certified that this patient is under their care and that they, or a Nurse Practitioner,Clinical Nurse specialist or Physician Sample Tester who is working directly with them, had [...] re health issues HOME HEALTH CARE AGENCY: [facility]. PHONE: [phone] FAX: [phone] Start of care: 24 hours after discharge [...] PCP: MANOLO CASTRO MD [address] / [facility] [address] All A agencies which cover the area of patient's residence have been reviewed, either verbally harry writing, and patient/family have chosen the home health care agency noted Questions: Agency name and contact information: [facility] Patient location post discharge: home What services are requested: Registered Nurse Start date: 05/21/2016 Responsible MD post discharge contact info: Dr Valencia and PCP Demond standard [EQ135 Custom] As directed Process Instructions: Scheduling Instructions: Comments: Eugene Rueda [address] [place] [place] [address] (home) Telephone Information: Diagnosis: abdominal pannus with Unsteady gait Patient???s: Hgt: 5' 9 Wgt: 220lbs VENDOR: [employer] Ordering: Front wheel walker Deliver to [facility] hospital room #: 321A Questions: Vendor [...] called in to our prescription line at [phone]. Narcotic renewals may be requested from 8am-4pm [...] Saturday 8 am to 5 pm Call [phone] On weekends or after hours: Call [phone] and ask the panelboard operator to page the Plastic Surgery Resident education coordinator. documented in this encounter Medications at Time [...] RN - 05/20/2016 6:47 AM EDT 3 [place] Telemetry Note Diagnosis r/t telemetry: Afib Subjective: [...] 05/19 0700 In: 2811 [P.O.:0; I.V.:621] Out: 0 [Urine:1875] Physical Exam: General: NAD, resting comfortably, [...] DVT Px Milton Vu MD 05/18/2016 Pager: [phone] * Kenia Sarabia RN - 05/17/2016 1:15 PM EDT Patient arrived to [facility] via bed from PACU s/p abdominoplasty/paniculectomy. Patient AOx 4, HR irregular, lung sounds clear. Patient denies chest pain and SOB. Hypoactive bowel sounds, lbm 8/10, pt DTV [id number]. Denies numbness and tingling. Dressing to abdomen [...] Al MD - 05/17/2016 7:16 AM EDT [facility] Department of General Surgery Interval History [...] scheduled. Ok to proceed with scheduled operation. Ilya Al MD 05/17/2016 * Tarik Schuster MD [...] educated on personal risks to fall; call znuiga w/in reach at all times Assistance [level of assistance required for transfers and ambulation]: Stand-by assist to ambulate. Repositions self independently. Supervision [direct monitoring required during toileting and ADLs]: Pt requires minimal assist with ADLs. Surveillance [continuous indirect monitoring]: nurse Jeremy knowledge exchange, purposeful rounding. CPG GOAL OUTCOME EVALUATION: Goal: Fall Prevention-Safe Patient Handling 05/19/16 0800 05/19/16 1706 05/19/16 2103 Safety Interventions Safety Precautions/Fall Reduction -- -- [...] OR MULTIPLE performed by Wally Pfeiffer MDat [facility] ENDOSCOPY ??? Pro upper gi endoscopy, diagnostic 12/25/2013 EGD, UPPER GI ENDOSCOPY performed by Wally Pfeiffer MD at [facility] ENDOSCOPY ??? Pro lap, esophagus, other proc 02/08/2014 LAPAROSCOPIC REVISION OF DELROY FUNDOPLASTY performed by Wally Pfeiffer MD at [facility] MAIN OR ??? Pro lap gastric bypass/monica-en-y 02/08/2014 @LAPAROSCOPIC GASTROPLASTY, performed by Wally Pfeiffer MD at [facility] MAIN OR ??? Pro upper gi endoscopy, diagnostic 02/08/2014 ENDOSCOPY, UPPER GI, DIAGNOSTIC, WITH OR WITHOUT SPECIMENS performed by Wally Pfeiffer MD at [facility] MAIN OR ??? Pro lap, diagnostic abdomen 02/10/2014 LAPAROSCOPY, DIAGNOSTIC, ABDOMEN performed by Wally Pfeiffer MD at [facility] MAIN OR ??? Pro excise excess skin tissue, abdomen N/A 05/17/2016 ABDOMINOPLASTY performed by Karlene Valencia MD at [facility] MAIN OR ??? Pro repair incisional hernia, reducible N/A 05/17/2016 REPAIR INITIAL INCISIONAL OR VENTRAL HERNIA REDUCIBLE performed by Stephanie Ortega MD at [facility] LOVELY ??? N/A 05/17/2016 MODIFIER PANNICULECTOMY performed by Karlene Valencia MD at [facility] MAIN OR Social History: patient , lives [...] timed interventions: 0 minutes (initial eval) Pager: [phone] JEAN-PAUL HILL PT 05/19/2016 Physical Therapy Rehabilitation [...] Ortega MD - 05/18/2016 1:49 PM EDT [facility] Operative Note Patient Name: Eugene Rueda : [id number] MR#: [id number] Case Date: 05/17/2016 Surgeon: Surgeon(s) and Role: [...] repair (recurrent), with mesh. SURGEON: Dr. Ortega. LUMBER CARRIER: Shon. Mr. Rueda was seen preoperatively by both nm and the Plastic Surgery service. He is [...] using a #1 PDS suture in a [id number]-type manner. Interrupted full-thickness sutures were brought through [...] Coverage: yes Primary Insurance: MEDICARE Secondary Insurance: [employer] OOS Prescription Coverage: Insurance as noted [facility]: [phone] Other: n/a Primary Care Provider: MANOLO CASTRO MD [phone] Patient/Caregiver Goals of Treatment: Return home with [...] transition of care planning. CONRAD Warner Pager: [phone] * Plan of Care - Ana Whitlock [...] Assessment Outcome: Ongoing (Interventions Implemented as Appropriate) 05/18/16316 Discharge Needs Assessment Concerns to be Addressed [...] OUTCOME EVALUATION: Goal: Fall Prevention-Safe Patient Handling 05/17/165 05/17/16 182 Safety Interventions Safety Precautions/Fall Reduction assistive [...] Valencia MD - 05/17/2016 10:15 AM EDT [facility] Operative Note Patient Name: Eugene Rueda : [id number] MR#: [id number] Case Date: 05/17/2016 Surgeon: Surgeon(s) and Role: [...] then irrigated the abdomen copiously. Two #19 Mexican Rao drains were inserted, 1 on each [...] Operative Note Patient Name: Eugene Rueda : [id number] MR#: [id number] Case Date: 05/17/2016 Surgeon: Surgeon(s) and Role: [...] 10:00 AM EDT [place] [address] Catrachito Mehta MD [facility] [place] [address] documented as of this encounter Procedures Procedure Name Priority Date/Time Associated Diagnosis Comments DIE EQUIPMENT OPERATOR SCAN 05/21/2016 12:00 AM EDT POCT GLUCOSE [...] in this encounter Results * SCAN DOC: DIE EQUIPMENT OPERATOR (05/21/2016 12:00 AM EDT) Anatomical Region Laterality Modality Other Scanning Provider MEDIA MGR SCAN EXT O RDR/RSLT * POCT Glucose (05/20/2016 8:21 AM EDT) POC Glucose 134 65 - 199 mg/dL [facility] Comment: Supplemental ranges: <140 mg/dL before meals <180 mg/dL all other times of the day Blood specimen (specimen) 05/20/2016 8:21 AM EDT 05/20/2016 8:21 AM EDT Karlene Valencia MD POINT OF CARE TEST O RDERABLES [facility] [place] [address] * POCT Glucose (05/19/2016 8:57 PM EDT) POC Glucose 131 65 - 199 mg/dL [facility] Comment: Supplemental ranges: <140 mg/dL before meals <180 mg/dL all other times of the day Blood specimen (specimen) 05/19/2016 8:57 PM EDT 05/19/2016 8:57 PM EDT Karlene Valencia MD POINT OF CARE TEST O RDERAALYSHA Performing Organization Address City/[facility]/ZIP Co de Phone Number [facility] [place] [address] * POCT Glucose (05/19/2016 5:02 PM EDT) POC Glucose 120 65 - 199 mg/dL [facility] Comment: Supplemental ranges: <140 mg/dL before meals <180 mg/dL all other times of the day Blood specimen (specimen) 05/19/2016 5:02 PM EDT 05/19/2016 5:02 PM EDT Karlene Valencia MD POINT OF CARE TEST O RDERAALYSHA Performing Organization Address [facility]/ZIP Co de Phone Number [facility] [place] [address] * POCT Glucose (05/19/2016 11:41 AM EDT) POC Glucose 140 65 - 199 mg/dL [facility] Comment: Supplemental ranges: <140 mg/dL before meals <180 mg/dL all other times of the day Blood specimen (specimen) 05/19/2016 11:41 AM EDT 05/19/2016 11:41 AM EDT Karlene Valencia MD POINT OF CARE TEST O RDERABLES Performing Organization Address City/[facility]/ZIP Co de Phone Number [facility] [place] [address] * POCT Glucose (05/19/2016 7:37 AM EDT) POC Glucose 134 65 - 199 mg/dL [facility] Comment: Supplemental ranges: <140 mg/dL before meals <180 mg/dL all other times of the day Blood specimen (specimen) 05/19/2016 7:37 AM EDT 05/19/2016 7:37 AM EDT Karlene Valencia MD POINT OF CARE TEST O SADIA [facility] [place] [address] * POCT Glucose (05/18/2016 8:48 PM EDT) POC Glucose 173 65 - 199 mg/dL [facility] Comment: Supplemental ranges: <140 mg/dL before meals <180 mg/dL all other times of the day Blood specimen (specimen) 05/18/2016 8:48 PM EDT 05/18/2016 8:48 PM EDT Karlene Valencia MD POINT OF CARE TEST O SADIA Performing Organization Address [facility]/ZIP Co de Phone Number [facility] [place] [address] * POCT Glucose (05/18/2016 4:45 PM EDT) POC Glucose 125 65 - 199 mg/dL [facility] Comment: Supplemental ranges: <140 mg/dL before meals <180 mg/dL all other times of the day Blood specimen (specimen) 05/18/2016 4:45 PM EDT 05/18/2016 4:45 PM EDT Karlene Valencia MD POINT OF CARE TEST O SADIA [facility] [place] [address] * POCT Glucose (05/18/2016 12:14 PM EDT) POC Glucose 137 65 - 199 mg/dL [facility] Comment: Supplemental ranges: <140 mg/dL before meals <180 mg/dL all other times of the day Blood specimen (specimen) 05/18/2016 12:14 PM EDT 05/18/2016 12:14 PM EDT Karlene Valencia MD POINT OF CARE TEST O SADIA Performing Organization Address [facility]/ZIP Co de Phone Number [facility] [place] [address] * POCT Glucose (05/18/2016 8:09 AM EDT) POC Glucose 178 65 - 199 mg/dL [facility] Comment: Supplemental ranges: <140 mg/dL before meals <180 mg/dL all other times of the day Blood specimen (specimen) 05/18/2016 8:09 AM EDT 05/18/2016 8:09 AM EDT Karlene Valencia MD POINT OF CARE TEST O SADIA Performing Organization Address [facility] Co de Phone Number [facility] [place] [address] * POCT Glucose (05/17/2016 9:32 PM EDT) POC Glucose 172 65 - 199 mg/dL [facility] Comment: Supplemental ranges: <140 mg/dL before meals <180 mg/dL all other times of the day Blood specimen (specimen) 05/17/2016 9:32 PM EDT 05/17/2016 9:32 PM EDT Karlene Valencia MD POINT OF CARE TEST O SADIA Performing Organization Address City/[facility] Co de Phone Number [facility] [place] [address] * POCT Glucose (05/17/2016 4:14 PM EDT) POC Glucose 186 65 - 199 mg/dL [facility] Comment: Supplemental ranges: <140 mg/dL before meals <180 mg/dL all other times of the day Blood specimen (specimen) 05/17/2016 4:14 PM EDT 05/17/2016 4:14 PM EDT Karlene Valencia MD POINT OF CARE TEST O SADIA Performing Organization Address [facility] Co de Phone Number [facility] [place] [address] * POCT Glucose (05/17/2016 10:41 AM EDT) POC Glucose 185 65 - 199 mg/dL [facility] Comment: Supplemental ranges: <140 mg/dL before meals <180 mg/dL all other times of the day Blood specimen (specimen) 05/17/2016 10:41 AM EDT 05/17/2016 10:41 AM EDT Karlene Valencia MD POINT OF CARE TEST O SADIA Performing Organization Address [facility] Co de Phone Number [facility] [place] [address] * POCT Glucose (05/17/2016 6:40 AM EDT) POC Glucose 131 65 - 199 mg/dL [facility] Comment: Supplemental ranges: <140 mg/dL before meals <180 mg/dL all other times of the day Blood specimen (specimen) 05/17/2016 6:40 AM EDT 05/17/2016 6:40 AM EDT Karlene Valencia MD POINT OF CARE TEST Pat MCCULLOUGH Performing Organization Address [facility] Co de Phone Number [facility] [place] [address] * Prothrombin Time (05/17/2016 5:56 AM EDT) PT 14.6 12.0 - 15.0 sec [facility] Comment: An INR <2.0 indicates [...] clinical circumstances. INR 1.1 0.9 - 1.1 [facility] Blood specimen (specimen) 05/17/2016 5:56 AM EDT 05/17/2016 6:33 AM EDT Narrative Resulting Agency Comment Spec In Lab Karlene Valencia MD HEMATOLOGY ORDERABLE S [facility] [place] [address] documented in this encounter Visit Diagnoses Diagnosis Chronic anticoagulation Encounter for long-term (current) use of anticoagulants Abdominal pannus Localized adiposity documented in this encounter Administered Medications Inactive [...] 8 HOURS, 2 doses, First dose on [place] 05/17/16 at 1600, Last dose on Sat05/18/16 at 0000, Administer over 30 Minutes, *Beta-lactam based antibiotics (eg. Ampicillin, Cefazolin, Aztreonam) should be administered within 4 hours of the preceding intraoperative dose. *Vancomycin, Flouroquinolones, Clindamycin, Gentamicin, and Metronidazole should be administered within 8 hours of the preceding intraoperative dose., Recovery (Recovery-Hospital Unit), Indication for (Active or Suspected): Prophylaxis Given 05/18/2016 1:21 AM EDT 1,000 mg 100 mL/ hr Given 05/17/2016 3:19 PM EDT 1,000 mg 100 mL/hr ceFAZolin (ANCEF) 1g in dextrose 5% 50mL [...] 240 mg, Oral, DAILY, First dose on Diamond [...] Starting on Diamond 05/17/16 at 1250, Until [place] 05/20/16 at 1206, For BG 50-70: 120 [...] duration of the active insulin. HYDROmorphone (DILAUDID) syringe 0.2-0.4 mg 0.2-0.4 mg, Intravenous, EVERY 5 MIN PRN, Pain, Starting on Diamond 05/17/16 at 1016, Until [place] 05/17/16 at 1202, For moderate pain (4-6) give: 0.2 mg every 5 minute prn For severe pain (7-10) give: 0.4 mg every 5 minutes prn Maximum dose: 4 mg per hour Hold for respiratory rate less than 10 per minute., PACU Recovery Given 05/17/2016 11:47 AM EDT 0.2 mg Given 05/17/2016 11:35 AM EDT 0.4 mg insulin aspart (NovoLOG) VIAL injection 1-4 Units 1-4 Units, Subcutaneous, 3 TIMES DAILY BEFORE MEALS, First dose on Diamond 05/17/16 at 1130, Until Discontinued, CORRECTION BOLUS Sensitive to insulin [...] no insulin and resume prior schedule. Given 05/17/2016 5:52 PM EDT 2 Units insulin aspart (NovoLOG) VIAL injection 1-4 Units [...] 1 tablet, Oral, DAILY, First dose on [facility] 05/17/16 at 1500, Until Discontinued, Routine Given [...] Given 05/18/2016 9:42 PM EDT 5 mLs sodium chloride 0.9% infusion 100 mL/hr, Intravenous, CONTINUOUS, Starting on Diamond 05/17/16 at 1130, Until Diamond 05/17/16 at 2329, Recovery (Recovery-Hospital Unit) New Bag 05/17/2016 11:22 AM EDT 100 mL/hr 100 m L/hr terazosin (HYTRIN) capsule 2 mg 2 mg, [...] Dixon RN) 0116 (Given - Provider: Dianelys Farrell, FRACISCO)0620 (Given - Provider: Dianelys Farrell RN) ceFAZolin [...] 240 mg, Oral, DAILY, First dose on Diamond 8/11/16 at 1400, Until Discontinued, DO NOT CRUSH OR OPEN, Routine 0855 (Given - Provider: Shea Dixon RN) 0808 (Given - Provider: Shea Dixon RN) 0858 (Given - Provider: Tatianna Pickens, FRACISCO) docusate sodium (COLACE) capsule 100 mg 100 mg, Oral, 2 TIMES DAILY, First dose on Sat05/17/16 at 1315, Until Discontinued, Routine 0856 (Given - Provider: Shea Dixon RN)214 (Given - Provider: Aida Malone RN) 0808 (Given - Provider: Shea Dixon RN)2123 (Given - Provider: Dianelys Farrell RN) 0859 (Given - Provider: Tatianna Pickens, FRACISCO) enoxaparin (LOVENOX) injection 40 mg 40 mg, [...] 0858 (Given - Provider: Tatianna Pickens RN) senna (SENOKOT) tablet 8.6 mg 8.6 mg, Oral, 2 TIMES DAILY, First dose on Sat05/19/16 at 1000, Until Discontinued, Routine 1147 (Given - Provider: Shea Dixon RN)2124 (Given - Provider: Dianelys Farrell, FRACISCO) 0859 (Given - Provider: Tatianna Pickens RN) sodium chloride 0.9 % flush 5 mL 5 mL, Intravenous, 2 TIMES DAILY, First dose on Diamond 05/17/16 at 1315, Until Discontinued, Recovery (Recovery-Hospital Unit), Routine 0856 (Given - Provider: Shea Dixon RN)2142 (Given - Provider: Aida Malone RN) 0809 (Given - Provider: Shea Dixon RN)2128 (Given - Provider: Dianelys Farrell, RN) 0900 (Not Given - Provider: Tatianna Pickens, FRACISCO - Reason: See comment - Comment: IV site removed r/t d/c) terazosin (HYTRIN) capsule 2 mg 2 mg, Oral, NIGHTLY, First dose on Diamond 05/17/16 at 2100, Until Discontinued, Routine 2140 (Given - Provider: Aida Malone RN) 2123 (Given - Provider: Dianelys Farrell, [...] Shea Dixon RN)2141 (Given - Provider: Aida Malnoe RN) 0058 (Given - Provider: Aida Malone RN)0550 (Given - Provider: Aida Malone RN) sodium chloride 0.9 % flush [...] Unit) documented in this encounter Care Teams Physician General Practice Relationship Specialty Start Date End Date Manolo Castro MD [address] [place] [address] PCP - General 05/14/12 04/21/17 documented as of this encounter
--- OUTSIDE RECORDS SUMMARY | 2024-04-27 14:54 | XMS_ITS | Encounter Summary ---
[place] [address] Care Team Providers Care Elocution Teacher Name Role Phone Manolo Castro MD Primary Care Provider [phone] Encounter Details Date Type Department Care Team (Late st Contact Info) Description 02/17/2014 Telephone [place] [address] Rowan Deutsch, [place] [address] Social History Tobacco Use Types Packs/Day Years [...] encounter Miscellaneous Notes * Telephone Encounter - Rowan Deutsch, RD - 02/17/2014 2:04 PM EDT S/P RNY gastric bypass on: 02/08/14 Discharged on PO Day #:4 Issues during hospitalization: large port site hematoma María Elena Eugenebethany Rueda was called via phone for post discharge follow up. Patient reports he feels great, went for 1/2 mile walk already today. Diet: stage: II Fluids: 48+ oz, always carrying a water bottle. Some milk, rarely juice Protein: 60grams/day per patient Eating babyfood- mostly veggies, fruit, turkey baby food. Has 1-2 protein shakes per day, also comoran yogurt, sugar free pudding. Other: Nausea/ vomiting: denies Urination: yellow to dark Bowels: denies Activity level: walking daily Pain level, analgesia requirements: denies Any significant changes to comorbidites/ medications (ex DM, HTN): none Medications: Currently crushing or taking liquid form of medications, as appropriate: MVI, B12, citracal chews- reviewed these are carbonate Taking ulcer prevention medication: yes, takes with unsweetened applesauce Taking Ursodiol (if appropriate): starts 2 weeks post-op VTE prophylaxis: enoxaparin: NA, starts coumadin on 02/19/14 Follow up: PCP appointment: seen 02/15/14 at 3 weeks post op, as scheduled with surgeon and RD: 03/02/14 Required visit to emergency dept or other unplanned visit to a health care facility since surgery? denies Assessment: stable post surgery course Recommendations: Suggest change from calcium carbonate to calcium citrate. Call as needed. documented in this encounter Plan of Treatment Upcoming Encounters Date Type Department Care Team (Late st Contact Info) Description 05/15/2024 10:00 AM EDT Office [place] [address] Catrachito Mehta MD [facility] [place] [address] documented as of this encounter Visit Diagnoses Not on filedocumented in this encounter Care Teams Elocution Teacher Relationship Specialty Start Date End Date Manolo Castro MD [address] [place] [address] PCP - General 05/14/12 04/21/17 documented as of this encounter
--- OUTSIDE RECORDS SUMMARY | 2024-04-27 14:54 | XMS_ITS | Encounter Summary ---
Author Organization [facility] Address [facility] [place] [address] Care Team Providers Care Pasting Machine Offbearer Name Role Phone Manolo Castro MD Primary Care Provider [phone] Reason for Visit * Reason Comments Follow Up Surgery sp bilat tka dos 12/05 11/09 Encounter Details Date Type Department Care Team (Late st Contact Info) Description 05/07/2014 12:40 PM EDT Office [place] [address] Rebecca Hamilton PA [facility] DR ORTHOPAEDIC [place] [address] S/P knee replacement, bilateral; Knee joint replacement by other means Discharge Disposition: Home Social History Tobacco Use [...] Sign Reading Time Taken Comments Blood Pressure 107/58 05/07/2014 12:52 PM EDT Pulse 74 05/07/2014 12:52 PM EDT Temperature - - Respiratory Rate - - Oxygen Saturation - - Inhaled Oxygen Concentration - - Weight 97.1 kg (214 lb) 05/07/2014 12:52 PM EDT pt stated Height 175.3 cm (5' 9) 05/07/2014 12:52 PM EDT pt stated Body Mass Index 31.6 05/07/2014 12:52 PM EDT documented in this encounter Progress Notes * Rebecca Hamilton PA - 05/07/2014 1:16 PM EDT Patient Name: Eugene Rueda : 1950 MR#: [id number] Case Date: 12/16/2002 Surgeon: Dr. Turner/ Dr. Evans Procedure: bilateral total knee replacement HPI: Eugene Rueda is a very pleasant 63 y.o. year-old male who presents for a 11 years follow-up of the above procedure. The patient has been doing very well and his pain is markedly improved over preoperative status. No fevers, chills, nausea, vomiting, or symptoms of infection. Eugene has been ambulating with no assistive device. . Physical Exam: Well-appearing male in no acute distress. Alert and Oriented x 3 and answers all questions appropriately. The incision is well healed, with no signs of infection. I have made the following determinations: Post Op Right Knee Exam: Gait Abnormality: Antalgic Knee ROM: Extension:0 Flexion: 110 Alignment: 0-4 degrees Neutral Stability: A/P Translation <5mm. Varus <5mm Valgus <5mm Extension La degrees or less Patella Tracking: Normal Pulses Palpable: Right PT: Yes Right DP:Yes Motor/Sensory: Distal Motor: Normal Distal Sensory: Normal Quadriceps Strength: 4 Post Op Left Knee Exam: Gait Abnormality: Antalgic Knee ROM: Extension:0 Flexion: 105 Alignment: 0-4 degrees Neutral Stability: A/P Translation <5mm Varus <5mm Valgus <5mm Extension La degrees or less Patella Tracking: Normal Pulses Palpable: Left PT:Yes Left DP:Yes Motor/Sensory: Distal Motor: Normal Distal Sensory: Normal Quadriceps Strength:4 Bilateral LE with brawny appearance and multiple small ulcerations without any drainage. X-RAYS: Multiple radiographic views were obtained at my request and reviewed with the patient. X-rays show a well-placed prosthesis with no evidence of fracture or loosening. ASSESSMENT/PLAN: 11 years post-op and doing well. Continue weightbearing as tolerated and working on range of motion, and we will see him back in 2 years for repeat examination. x-rays will be neededat that time. Patient may return to normal activities as his pain and function allow. We did discuss his small ulcerations on the lower extremities. He has a hx of periperal vascular disease and evidence of venous stasis. We discussed the appropriate precautions surrounding dental prophylaxis. I stressed that he should call the office for a prescription prior to any further dental work for the lifetime of the joint replacement. We also discussed maintaining good foot care and giving prompt attention to any source ofinfection throughout the body including foot ulcers and urinary tract infections. Signed: KAY TAYLOR 05/07/2014 documented in this encounter Plan of Treatment Upcoming Encounters Date Type Department Care Team (Late st Contact Info) Description 05/15/2024 10:00 AM EDT [place] [address] Catrachito Mehta MD [facility] [place] [address] documented as of this encounter Visit Diagnoses Diagnosis S/P knee replacement, bilateral Knee joint replacement by other means documented in this encounter Care Teams Pasting Machine Offbearer Relationship Specialty Start Date End Date Manolo Castro MD [address] [place] [address] PCP - General 05/14/12 04/21/17 documented as of this encounter
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
--- OUTSIDE RECORDS SUMMARY | 2024-04-27 14:54 | XMS_ITS | Encounter Summary ---
Author Organization [facility] [place] [address] Care Team Providers Care Evaluation Manager Name Role Phone Manolo Castro MD Primary Care Provider [phone] Reason for Visit * Reason Onset Date Comments Reminder Appointment 03/27/2016 Encounter Details Date Type Department Care Team (Late Contact Info) Description 03/27/2016 Telephone [place] [address] Pablo Handy PA [facility] [place] [address] Reminder Appointment Social History Tobacco Use Types Packs/Day [...] * Telephone Encounter - Gunjan Curtis - 03/27/2016 1:56 PM EDT LMOM #1 to call to schedule May recall appointment documented in this encounter Plan of Treatment Upcoming Encounters Date Type Department Care Team (Late Contact Info) Description 05/15/2024 10:00 AM EDT [place] [address] Catrachito Mehta MD [facility] [place] [address] documented as of this encounter Visit Diagnoses Not on filedocumented in this encounter Care Teams Evaluation Manager Relationship Specialty Start Date End Date Manolo Castro MD [address] [place] [address] PCP - General 05/14/12 04/21/17 documented as of this encounter
--- OUTSIDE RECORDS SUMMARY | 2024-04-27 14:54 | XMS_ITS | Encounter Summary ---
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 Name Role Phone Manolo Castro MD Primary Care Provider [phone] Reason for Referral * Consultation (Routine) - Specialty Diagnoses / Procedures Referred By Sonal dawson Referred To Contact Plastic Surgery Diagnoses Status post bariatric surgery Intestinal malabsorption, unspecified type Symptomatic abdominal panniculus Narda Allen, MIGUEL [facility] [place] [address] Adis Mmebreno MD [facility] [place] [address] Referral ID Status Reason Start Date Expiration Date V isits Requested Visits Authorized [id number] Consult, Test & Treat 12/08/2015 12/07/2016 1 1 Encounter Details Date Type Department Care Team (Latest Contact Info) Description 12/08/2015 10:30 AM EST Office [place] [address] 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[employer] [facility] [place] [address] Disorder of iron metabolism; Status post bariatric surgery; Intestinal malabsorption, unspecified type [K90.9]; Symptomatic abdominal panniculus; Obstructive sleep apnea; Hyperlipidemia, unspecified hyperlipidemia type [E78.5]; Vitamin D deficiency; Diabetes mellitus type 2, uncomplicated Social History Tobacco Use Types Packs/Day Years [...] Sign Reading Time Taken Comments Blood Pressure 142/80 12/08/2015 11:19 AM EST Pulse 95 12/08/2015 10:15 AM EST Temperature - - Respiratory Rate 18 12/08/2015 10:15 AM EST Oxygen Saturation 99% 12/08/2015 10:15 AM EST Inhaled Oxygen Concentration - - Weight 97.2 kg (214 lb 4.6 oz) 12/08/2015 10:15 AM EST Height 175.3 cm (5' 9.02) 12/08/2015 10:[address] Body Mass Index 31.63 12/08/2015 10:15 AM EST documented in this encounter Patient Instructions * Patient Instructions* Keila Hickman - 12/08/2015 10:58 AM EST [facility] Admin coordinator Tracy: [phone] Dietitian: [phone] Surgeons/ nurse practitioner: [phone] Nurse line: [phone] Your excess body weight lost: 41.7% Keep up the hard work! Testin. Labwork: Today. Go to Care Director Area 3L, which is 1 flight below the General Surgery Clinic. Please note that you will always receive a letter with lab results and recommendations. Please readthis letter carefully and follow recommendations. The letter also contains information regarding your next lab draw. 2. Check on timing of your colonoscopy Next visit: 1 year, sooner if needed Routine visits are done at 4.8,12, 18 and 24 months after surgery, and yearly thereafter. Please call [phone] if you do not receive an appointment by 3-4 weeks prior to the expected visit. Medications: 1. Use antifungal powder to groin area- meds used for jock itch 2. recommendations pending labwork. Referrals: Plastic surgery Vitamins: The following vitamins are recommended: ??? Multivitamins with minerals twice daily- needs to be an under 50 multivitamin that contains iron. (No senior multivitamins. (or once daily if a Bariatric specific multivitamin such as procare). ??? Vitamin B12 500 mcg by mouth once daily, check dosing of B12. ??? Calcium citrate 600 mg with Vitamin D 400 units twice daily (600 mg in AM and 600 mg in PM- 2 pills twice a day) (or 1 chewable twice a day), check dosing on calcium ??? Iron with Vitamin C, 50-66 mg once daily (take iron with vitamin C 250 mg to help with absorption) only if you have regular periods, iron deficiency or anemia. Nutrition recommendations: - Your Daily Goals: ??? 1,000-1,200 calories per day (300 calories per meal, 100 calories per snack, 1-2 snacks per day) Decrease rice and pasta portions to 1/4 cup, increase protein and vegetable intake if still hungry. ??? 60 grams of protein per day (20 grams per meal) Consume protein at breakfast every day, have eggs with your toast. ??? 48-64 oz of non-caloric and hydrating fluids per day (6-8, 8 oz cups) ??? Do not drink with meals- pushes food through more quickly, can cause upset stomach. Wait a full30 minutes to start drinking after meals. Activity: keep up the good work! ??? Aim for 30 minutes of exercise daily, 5 days a week of both cardio and strength training exercises. Alcohol: should be used sparingly, no more than one drink per occasion. Alcohol is a source of empty calories and can cause ulcers and vitamin and mineral deficiencies. Studies have noted that there is an increased risk of alcohol dependence after bariatric surgery. Anti-inflammatory medications such as Advil, Aleve, Excedrin, [...] of every month from 1-2 PM at [facility] [place] [place]- no registration required Back on Track group visits are held the [facility] the [facility]- call Tracy to register [phone] Internet resources: www.MitoProd www.Crowdtap www.Activaero www.Microvisk Technologies (adelfo Hernandez) [email or web address]/[facility] Books & Magazines: - Recipes for Life After Weight Loss Surgery by Claudia Mcdonald - Shrink Yourself by Dr Darrel Kaur - Nutrition Action Health Letter subscribe at [email or web address] - Eating Well - Cooking Light documented in this encounter Progress Notes * Narda Allen - 12/08/2015 10:37 AM EST Reason for visit: follow up S/P laparoscopic [...] CMP PTH 87 D 44 TSH 2.8 Next visit with lab June Screening: Date Evaluation Results 2015 Primary care Next visit in 04/04/12 Colonoscopy polyps in descending and sigmoid colon, glasgow diverticulosis, grade II hemorrhoids - DEXA Problem List ??? Preoperative Class II obesity BMI 38.1, S/P gastric bypass ??? Hypertension treated with ramipril preop: off ramipril post surgery, remains on diltiazem for AF ??? Type 2 diabetes mellitus diagnosed ~2008, less than ideally controlled prior to surgery: remains on metformin. Glyburide D/c post surgery. A1c 6.9 today A. Preop treatment: glyburide, metformin ??? Hyperlipidemia: remains on lovastatin, last check September 2014 ??? History of GERD, S/P repair of paraesophageal hernia and Ronnell fundoplication: asymptomatic A. Barium swallow done on 11/18/13: Small recurrent paraesophageal hernia. The Ronnell wrap is intactModerate amount of gastroesophageal reflux. ??? Obstructive sleep apnea : stopped CPAP post surgery, restarted CPAP after DOT physical done, uses nightly A. PSG done in 1998: AHI of 22 and a supine index of 75. Oxygen saturation was as low as 88%. B. CPAP study done on 06/30/2008, at a weight of 238 pounds, he had an AHI of 78, minimum saturation of 78% ??? Atrial fibrillation treated with Diltiazem and Coumadin A. Cardiac ECHO [...] ??? Peripheral vascular disease ??? Musculoskeletal issues: episodic back spasms A. Back pain ??? Varicose veins both legs, no DVT history A. Rehab med evaluation on 11/18/13: recommended knee highs. ??? Depression: stable on medication ??? Anemia of chronic disease: stable, mild iron deficiency by today's lab, no current iron in multivitamin ??? Fatigue ??? Hypogonadism ??? Lactose intolerance ??? History of elevated TSH and decreased T4 preop: normal with today's check ??? Decreased hearing right ear, wears hearing aid ??? Tattoo ??? Diverticulosis ??? Hemorrhoids ??? Asbestosis, asymptomatic ??? History of remote renal stone in 1980s: quiescent ??? History of tubulovillous adenoma colon polyps 04/04/2012: reports that he is due for a repeat colonoscopy, has not been scheduled Past Surgical History Procedure Date Laparoscopic takedown of Ronnell fundoplication and conversion to Aviva en Y gastric bypass (Dr. Pfeiffer) 02/08/2014 Diagnostic laparoscopy, evacuation of intra-abdominal blood 02/10/2014 ??? Laparoscopic paraesophageal hernia repair and Ronnell fundoplication 07/16/2002 ??? Laparoscopic umbilical hernia repair with Bard Ventrio ST circular mesh (11.4 cm in diameter) at [facility] 10/15/2012 ??? Vasectomy ??? Right carpal tunnel release ~2007 ??? Septoplasty, Bilateral inferior turbinoplasty, Uvulopalatopharyngoplasty 08/25/1999 ??? Tonsillectomy ~1955 ??? 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 He urinates frequently q1 hour to urinate- saw urologist this week- new medication with am seems to help Subjective. Patient concerns at today's visit: he returns for follow up after a long absence, due to the recommendations of his son and primary care physician. He reports that he felt guilty that he ignored our phone calls and letters encouraging him to return for followup He reports occasional: stomach is bothering me - points to umbilical area, pain is dull, 4/6/10 in intensity, lasts until he eats. Pain is non-radiating. He denies heartburn or constipation. He is not interested in testing. His main concern is sagging abdominal skin, which he finds embarrassing. 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 Objective: General: 64 y.o. year-old male looks well, appears upbeat Heart: irreg irreg Lungs: CTA without wheezing Abdomen: soft, non-tender. Abdominal trocar sites well-healed, without evidence of hernia. Redundant skin lower abdomen, with evidence of chronic intertrigo both groins Extremities: no edema Vital signs: Blood pressure 156/88, pulse 95, resp. rate 18, height 175.3 cm (5' 9.02), weight 97.2 kg (214 lb 4.6 oz), SpO2 99 %. Body mass index is 31.63 kg/(m^2). Blood pressure 142/80, taken with manual cuff at end of visit Results for EUGENE PURVIS ( ) Ref. Range 12/08/2015 11:50 WBC Latest Ref Range: 4.0-10.0 x10(3)/mcL 7.6 RBC Latest Ref Range: 4.63-6.08 x10(6)/mcL 4.35 (L) Hemoglobin Latest Ref Range: 13.7-17.5 gm/dL 13.0 (L) Hematocrit Latest Ref Range: 40.0-51.0 % 38.4 (L) MCV Latest Ref Range: 79.0-92.0 fL 88.3 MCH Latest Ref Range: 25.6-32.2 pg 29.9 MCHC Latest Ref Range: 32.0-36.5 gm/dL 33.9 RDWSD Latest Ref Range: 35.0-46.0 fL 47.4 (H) RDWCV Latest Ref Range: 10.9-14.4 % 14.7 (H) Platelets Latest Ref Range: 145-370 x10(3)/mcL 199 MPV Latest Ref Range: 9.0-12.0 fL 9.8 Sodium Latest Ref Range: 135-145 mmol/L 143 Potassium Latest Ref Range: 3.5-5.0 mmol/L 4.4 Chloride Latest Ref Range: 98-107 mmol/L 105 CO2 Latest Ref Range: 22-31 mmol/L 22 Anion Gap Latest Ref Range: 5-15 mmol/L 16 (H) BUN Latest Ref Range: 10-20 mg/dL 18 Creatinine Latest Ref Range: 0.80-1.50 mg/dL 1.20 Estimated GFR Latest Ref Range: >=60 >60 Glucose Lvl Latest Ref Range: 65-199 mg/dL 146 Calcium Latest Ref Range: 8.5-10.5 mg/dL 8.9 Hemoglobin A1C Latest Ref Range: 4.3-5.6 % 6.9 (H) Est Avg Gluc Latest Units: mg/dL 151 Total Protein Latest Ref Range: 6.1-8.0 gm/dL 7.2 Albumin Latest Ref Range: 3.2-5.2 gm/dL 4.3 Total Bilirubin Latest Ref Range: 0.2-1.3 mg/dL 0.3 Bili, Direct Latest Ref Range: 0.0-0.3 mg/dL 0.1 Alk Phos Latest Ref Range: 40-120 unit/L 59 AST Latest Ref Range: 0-39 unit/L 23 ALT Latest Ref Range: 0-55 unit/L 24 Ferritin Latest Ref Range: 30-400 ng/mL 72 Folate Lvl Latest Ref Range: 4.6-34.8 ng/mL 19.4 Iron Latest Ref Range: 45-160 mcg/dL 50 TIBC Latest Ref Range: 250-450 mcg/dL 321 Iron Saturation Latest Ref Range: 20-50 % 16 (L) Vitamin B-12 Latest Ref Range: 207-974 pg/mL 1487 (H) 25-OH Vit D Total Latest Ref Range: 30-100 ng/mL 44 Vit B1 Lvl WB Latest Ref Range: 70-180 nmol/L 143 TSH Latest Ref Range: 0.27-4.20 mcIU/mL 2.80 PTH Latest Ref Range: 15-65 pg/mL 87 (H) Assessment: S/P gastric bypass, with loss of 41.7% of excess body weight. Mild iron deficiency withchronic stable anemia. Mild PTH elevation Plan: ?? Recommend journaling pain episodes, call if interested in further evaluation ?? Advised to discuss the timing of next colonoscopy with his primary care office ?? Next BSP visit: 6 months ?? Next labwork: 6 months CBC, iron screen, PTH, D ?? Additional vitamin and mineral supplement recommendations (*in addition to usual post surgery supplements, as noted below): take multivitamin with iron BID per guidelines, increase vitamin D3 to 2,000 units a day for the next 6 months, decrease B12 to once a day ?? dietary/ exercise recommendations per RD ?? Advised to call if develops unexplained abdominal pain, concerns or questions ?? Constipation strategies discussed. ?? provided with a August 2013 edition of One Year and Beyond bariatric surgery, a resource regarding supplements, diet, recommendations for patients > 1 year post-operatively He was provided with a Bariatric Program [...] If labwork is done by the primary day care center director: please send a copy to the Bariatric Surgery Program, General Surgery Clinic, [facility] [place] [place], attention Narda Allen APRN. Questions regarding [facility] [place] [place] Bariatric Surgery Program patients: please call Shayy Allen APRN at [phone] or [phone] [phone]. E-mail: [email or web address] * Keila Hickman - 12/07/2015 3:36 PM EST BSP Nutrition First Post-operative Follow up SUBJECTIVE: Topics Discussed/Patient Concerns: ?? He feels guilty about not showing up, doesn't know why he has not come in for follow up, he has had a busy schedule ?? Bad pains in his stomach, started 1-2 weeks ago, and every time he eats something, within minutes he is in bathroom, no matter what the food is, very soft stools. ?? Drinks a lot of water with his meals sometimes. ?? Weight has stabilized OBJECTIVE: Date of Bariatric Surgery: 02/08/14 Type of Bariatric Surgery: laparoscopic Aviva-en-Y Gastric Bypass Weight History: Date Weight (lbs) %EWL HT BMI Comments 10/02/13 266 Highest Weight 10/02/13 266 68 40.4 Initial program weight 11/03/13 257 68.9 38.1 1st pre-op visit 02/08/14 247 69 34 Surgery 03/02/14 221 35% 32.7 1 month post-op 12/08/15 214# 41.7% 31.6 2 years post-op Goal Weight: 170-175#. / body weight loss= 172#. History of obesity since: age 44 Social history: , 3 grown children, 2 stepchildren. Eugene live with one of his sons, Momo(age 36), who is on disability. Close with his 3 siblings, though they live in different states. Biggest support is his son Momo. 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 Vitamin/Mineral Supplements (reported by patient): Supplement Type Brand/Form Dosage/Amount Frequency Comments Multivitamin Complete >50 1 Twice daily Calcium citrate Large pill ? dose Twice daily Vitamin B12 pill 500mcg? Twice daily Iron n/a Vitamin D3 Gel tablets 2,000 IU Twice daily Tracking Intake: none Daily Oral Intake: Breakfast 1-2 slices grain bread + decaf coffee w/ splenda or black + water w/ vitamins, sometimes juice Or 2 eggs fei side up AM Snack Lunch Sometimes 3.5 oz white tuna or canned chicken w/ light landaverde, sometimes on grain bread or plain steamed vegetables in olive oil sometimes w/ lunch PM Snack Dinner 1.5 cups steamed veg in olive oil + 4 oz fish + 1-1.5 cups brown rice or wheat pasta w/ oil Sometimes 4 oz hamburger w/ veg, and sometimes brown rice- tolerates well HS Snack Apple and handful of unsalted nuts Protein/ grams per day: 50-65 grams Calories per day: 6585-6960 kcal Hydrating Fluids: 3-5 12 oz bottles water- has to urinate every 15 minutes, wakes up every hour to use the bathroom, drinks less than 12 oz before going to bed, 2-3 cups decaf coffe Soda: none ETOH: none Caffeine: none Sweets: Once in awhile a piece of dark chocolate- once a month- doesn't usually eat chips or crackers, usually snacks on fruit Meals: 3 /day most days ?? Feels full/satisfied after eating: most of the time but sometimes he is always hungry ?? Feels hungry []never [x]sometimes []most of the time [] always ?? Drinks with meals: takes a sip while eating, waits 10-15 minutes after eating to start drinking again ?? Practices portion control: yes ?? Spends at least 20 minutes eating each meal: 15-30 minutes, if he eats too fast he vomits. ?? Has had dumping syndrome: none Foods/Symptoms: ?? In the past month, pt has vomited/regurgitated: a couple times, eating too quickly. Food Allergies/Intolerances: Milk, ice cream, white rice, white bread Exercise: a lot of walking outside and inside, 30-45 minutes, 6 days per week, enjoys walking, useshis cane. ASSESSMENT: Summary of Weight Loss: Patient's percent excess weight loss is 41.7% which is below the expected post- op bariatric surgeryrange. Weight down 7# x 2 years. Patient has not been compliant with follow up. He is meeting protein and fluid needs on most days. Recommend adding protein to breakfast every day, such as having eggs with his toast. Noted patient is eating large portions of rice/carbohydrates at dinner, recommend patient decrease portion to 1/4-1/2 cup and increase portions of protein and vegetables if he is still hungry. Discussed bowel movements right after eating and sometimes feeling hungry soon after a meal could be cause by him drinking water too soon after eating. Recommend waiting a full 30 minutes to begin drinking again after a meal. Patient has been compliant with supplements, recommend switching to an <50 MVI and checking the dosing on the calcium and B12. Reviewed the recommend doses for supplements with pt, he did mention that he thought he knew to be taking an <50 MVI and doesn't know why he has been taking an >50. Patient has a great exercise routine and really enjoys walking. NUTRITION INTERVENTION & MONITORING: ?? Provided support/encouragement and reinforced importance of meeting nutritional goals. ?? Reviewed nutrition and vitamin and mineral supplement recommendations (see patient instructions). ?? Written recommendations provided. Patient agreed with these and verbalized adequate understanding ?? Evaluation by nurse practitioner today ?? Handouts provided: One Year and Beyond (revised 01/2014) documented in this encounter Plan of Treatment Upcoming Encounters Date Type Department Care Team (Late st Contact Info) Description 05/15/2024 10:00 AM EDT [place] [address] Catrachito Mehta MD [facility] [place] [address] Scheduled Referrals Name Type Priority Associated Diagnoses Orde r Schedule Referral to Plastic Surgery Outpatient Referral Routine Status post bariatric surgery Intestinal malabsorption, unspecified type [K90.9] Symptomatic abdominal panniculus Ordered: 12/08/2015 documented as of this encounter Procedures Procedure Name Priority Date/Time Associated Diagnosis Comments PTH Routine 12/08/2015 11:50 AM EST Status post bariatric surgery Intestinal malabsorption, unspecified type [K90.9] Vitamin D deficiency HEMOGRAM Routine 12/08/2015 11:50 AM EST Disorder of iron metabolism Status post bariatric surgery Intestinal malabsorption, unspecified type [K90.9] Obstructive sleep apnea Hyperlipidemia, unspecified hyperlipidemia type [E78.5] VITAMIN B1, WHOLE BLOOD Routine 12/08/2015 11:50 AM EST Status post bariatric surgery Intestinal malabsorption, unspecified type [K90.9] IRON AND TIBC Routine 12/08/2015 11:50 AM EST Disorder of iron metabolism Status post bariatric surgery Intestinal malabsorption, unspecified type [K90.9] Obstructive sleep apnea VITAMIN D, 25-HYDROXY Routine 12/08/2015 11:50 AM EST Status post bariatric surgery Intestinal malabsorption, unspecified type [K90.9] Vitamin D deficiency TSH Routine 12/08/2015 11:50 AM EST Status post bariatric surgery Intestinal malabsorption, unspecified type [K90.9] HEMOGLOBIN A1C Routine 12/08/2015 11:50 AM EST Status post bariatric surgery Intestinal malabsorption, unspecified type [K90.9] Symptomatic abdominal panniculus Obstructive sleep apnea Hyperlipidemia, unspecified hyperlipidemia type [E78.5] Vitamin D deficiency Diabetes mellitus type 2, uncomplicated FOLATE, SERUM Routine 12/08/2015 11:50 AM EST Status post bariatric surgery Intestinal malabsorption, unspecified type [K90.9] FERRITIN Routine 12/08/2015 11:50 AM EST Disorder of iron metabolism Status post bariatric surgery Intestinal malabsorption, unspecified type [K90.9] Obstructive sleep apnea VITAMIN B12 Routine 12/08/2015 11:50 AM EST Status post bariatric surgery Intestinal malabsorption, unspecified type [K90.9] COMPREHENSIVE METABOLIC PANEL (NON-FASTING) Routine 12/08/2015 11:50 AM EST Status post bariatric surgery Intestinal malabsorption, unspecified type [K90.9] Obstructive sleep apnea Hyperlipidemia, unspecified hyperlipidemia type [E78.5] documented in this encounter Results * (ABNORMAL) Hemoglobin A1c (12/08/2015 11:50 AM EST) [facility] Signature Hemoglobin A1C 6.9(H) 4.3 - 5.6 % [facility] Comment: Reference Range: 4.3 - [...] Mellitus, Diabetes Care 2013; 36: Suppl. 1, S67-06 Est Avg Gluc 151 mg/dL [facility] Comment: eAG equivalents for HbA1c percentages: HbA1c(%) ?eAG(mg/dL) 6.0 ?126 6.5 ?140 7.0 ?154 7.5 ?169 8.0 ?183 8.5 ?197 9.0 ?212 9.5 ?226 10.0 ? 240 Limitations: The eAG calculation has not been validated on women, individuals below 18 years old and above 70 years old, and individuals with hemoglobinopathies. Additional resources are available on the ADA website: http://CollegePostings.com/DHMCadacalc Keyon MACHADO, Buddy J, Maynor R, et al. ??Translating the A1C assay into estimated average glucose values. ??Diabetes Care 2008:31(8):8130-9283. Blood specimen (specimen) 12/08/2015 11:50 AM EST 12/08/2015 11:58 AM EST Narrative Resulting Agency Comment Spec In Lab Wally Pfeiffer MD CHEMISTRY ORDERABLE S [facility] [place] [place] [address] * TSH (12/08/2015 11:50 AM EST) TSH 2.80 0.27 - 4.20 mcIU/mL [facility] Blood specimen (specimen) 12/08/2015 11:50 AM EST 12/08/2015 11:58 AM EST Narrative Resulting Agency Comment Spec In Lab Wally Pfeiffer MD CHEMISTRY ORDERABLE S Performing Organization Address City/[facility] Co de Phone Number [facility] [place] [address] * Folate, serum (12/08/2015 11:50 AM EST) Folate Lvl 19.4 4.6 - 34.8 ng/mL [facility] Blood specimen (specimen) 12/08/2015 11:50 AM EST 12/08/2015 11:58 AM EST Narrative Resulting Agency Comment Spec In Lab Wally Pfeiffer MD CHEMISTRY ORDERABLE S Performing Organization Address [facility] Co de Phone Number [facility] [place] [address] * (ABNORMAL) Vitamin B12 (12/08/2015 11:50 AM EST) Vitamin B-12 1,487(H) 207 - 974 pg/mL [facility] Blood specimen (specimen) 12/08/2015 11:50 AM EST 12/08/2015 11:58 AM EST Narrative Resulting Agency Comment Spec In Lab Wally Pfeiffer MD CHEMISTRY ORDERABLE S Performing Organization Address [facility] Co de Phone Number [facility] [place] [address] * Vitamin B1, whole blood (12/08/2015 11:50 AM EST) Vit B1 Lvl WB 143 70 - 180 nmol/L [facility] Comment: Test Performed by: [facility] [address] [address] Flow Manager: Bronwyn Hoyos, Ph.D. Blood specimen (specimen) 12/08/2015 11:50 AM EST 12/08/2015 1:29 PM EST Narrative Resulting Agency Comment Spec In Lab Wally Pfeiffer MD CHEMISTRY ORDERABLE S Performing Organization Address City/[facility]/ZIP Co de Phone Number [facility] [place] [address] * VIT D Total Evaluation (12/08/2015 11:50 AM EST) 25-OH Vit D Total 44 30 - 100 ng/mL [facility] Comment: Deficient <10 ng/mL Insufficient 10 to 29 ng/mL Sufficient 30 to 100 ng/mL Potential Intoxication >100 ng/mL According to the [place] National Osteoporosis Foundation, Vitamin D concentrations >30 ng/mL are sufficient to protect bone health. ??The National Kidney Foundation has similarly stated that patients with Vitamin D concentrations <30ng/mL should be considered to be insufficient or deficient. http://Mobile Automation/DHMCnatlkidneyfoundation http://Mobile Autom[employer]/DHMCVitD The [employer] Vitamin D Immunoassay detects both 25-OH Vitamin D2 and 25-OH Vitamin D3, but only a total Vitamin D concentration is reported. Blood specimen (specimen) 12/08/2015 11:50 AM EST 12/08/2015 11:58 AM EST Narrative Resulting Agency Comment Spec In Lab Wally Pfeiffer MD CHEMISTRY ORDERABLE S Performing Organization Address [facility] Co de Phone Number [facility] [place] [address] * (ABNORMAL) PTH (12/08/2015 11:50 AM EST) PTH 87(H) 15 - 65 pg/mL [facility] Blood specimen (specimen) 12/08/2015 11:50 AM EST 12/08/2015 11:58 AM EST Narrative Resulting Agency Comment Spec In Lab Wally Pfeiffer MD CHEMISTRY ORDERABLE S Performing Organization Address City/[facility]/ZIP Co de Phone Number [facility] [place] [address] * Ferritin (12/08/2015 11:50 AM EST) Ferritin 72 30 - 400 ng/mL [facility] Comment: Pediatric reference ranges not verified at [facility] [place] [place], interpret with caution. Reference ranges for females greater than 50 years of age approach values for men, i.e., 30-400 ng/mL. Blood specimen (specimen) 12/08/2015 11:50 AM EST 12/08/2015 11:58 AM EST Narrative Resulting Agency Comment Spec In Lab Wally Pfeiffer MD CHEMISTRY ORDERABLE S Performing Organization Address [facility] Co de Phone Number [facility] [place] [address] * (ABNORMAL) Iron and TIBC (12/08/2015 11:50 AM EST) [facility] Iron 50 45 - 160 mcg/dL [facility] TIBC 321 250 - 450 mcg/dL [facility] Iron Saturation 16(L) 20 - 50 % [facility] Blood specimen (specimen) 12/08/2015 11:50 AM EST 12/08/2015 11:58 AM EST Narrative Resulting Agency Comment Spec In Lab Wally Pfeiffer MD CHEMISTRY ORDERABLE S Performing Organization Address [facility] Co de Phone Number [facility] [place] [address] * (ABNORMAL) Comprehensive metabolic panel (non-fasting) (12/08/2015 11:50 AM EST) [facility] Glucose Lvl 146 65 - 199 mg/dL [facility] Comment:Diabetes: >=200 mg/d L plus symptoms BUN 18 10 - 20 mg/dL [facility] Creatinine 1.20 0.80 - 1.50 mg/dL [facility] Comment: Please note that the pediatric reference intervals supplied above were not validated at [facility] [place] [place]. Results from pediatric patients should be interpreted in conjunction to the patient's age, height and muscle mass. Sodium 143 135 - 145 mmol/L [facility] Potassium 4.4 3.5 - 5.0 mmol/L [facility] Comment: Please note: ??Patients with WBC >100,000 may have falsely elevated Potassium levels. ??For accurate Potassium quantification in these patients send serum separator tube (gold top) for subsequent determinations. ??Contact the Clinical Chemistry Laboratory if there are any questions. Chloride 105 98 - 107 mmol/L [facility] CO2 22 22 - 31 mmol/L [facility] Anion Gap 16(H) 5 - 15 mmol/L [facility] Calcium 8.9 8.5 - 10.5 mg/dL [facility] Total Protein 7.2 6.1 - 8.0 gm/dL [facility] Albumin 4.3 3.2 - 5.2 gm/dL [facility] AST 23 0 - 39 unit/L [facility] ALT 24 0 - 55 unit/L [facility] Alk Phos 59 40 - 120 unit/L [facility] Total Bilirubin 0.3 0.2 - 1.3 mg/dL [facility] Bili, Direct 0.1 0.0 - 0.3 mg/dL [facility] Estimated GFR >60 >=60 [facility] Comment: This estimated GFR (eGFR) [...] the following links into your internet browser. [email or web address] Evolution/DHnkdep [email or web address] Blood specimen (specimen) 12/08/2015 11:50 AM EST 12/08/2015 11:58 AM EST Narrative Resulting Agency Comment Spec In Lab Wally Pfeiffer MD CHEMISTRY ORDERABLE S Performing Organization Address City/[facility]/ZIP Co de Phone Number [facility] [place] [address] * (ABNORMAL) Hemogram (12/08/2015 11:50 AM EST) WBC 7.6 4.0 - 10.0 x10(3)/[facility] RBC 4.35(L) 4.63 - 6.08 x10(6)/[facility] Hemoglobin 13.0(L) 13.7 - 17.5 gm/dL [facility] Hematocrit 38.4(L) 40.0 - 51.0 % [facility] MCV 88.3 79.0 - 92.0 fL [facility] MCH 29.9 25.6 - 32.2 pg [facility] MCHC 33.9 32.0 - 36.5 gm/dL [facility] Platelets 199 145 - 370 x10(3)/[facility] RDWSD 47.4(H) 35.0 - 46.0 fL [facility] RDWCV 14.7(H) 10.9 - 14.4 % [facility] MPV 9.8 9.0 - 12.0 fL [facility] Blood specimen (specimen) 12/08/2015 11:50 AM EST 12/08/2015 11:58 AM EST Narrative Resulting Agency Comment Spec In Lab Wally Pfeiffer MD HEMATOLOGY ORDERABL ES Performing Organization Address [facility]/ZIP Co de Phone Number [facility] [place] [address] documented in this encounter Visit Diagnoses Diagnosis Disorder of iron metabolism Other disorders of iron metabolism Status post bariatric surgery Bariatric surgery status Intestinal malabsorption, unspecified type [K90.9] Symptomatic abdominal panniculus Localized adiposity Obstructive sleep apnea Obstructive sleep apnea (adult) (pediatric) Hyperlipidemia, unspecified hyperlipidemia type [E78.5] Vitamin D deficiency Unspecified vitamin D deficiency Diabetes mellitus type 2, uncomplicated Type II or unspecified type diabetes mellitus without mention of complication, not stated as uncontrolled documented in this encounter Care Teams Arts And Crafts Teacher Relationship Specialty Start Date End Date Manolo Castro MD [address] [place] [address] PCP - General 05/14/12 04/21/17 documented as of this encounter
--- OUTSIDE RECORDS SUMMARY | 2024-04-27 14:54 | XMS_ITS | Encounter Summary ---
Author Organization [facility] [place] [address] Care Team Providers Care Flux Tube Attendant Name Role Phone Manolo Castro MD Primary Care Provider [phone] Reason for Visit * Reason Onset Date Comments Other 11/11/2015 Encounter Details Date Type Department Care Team ([facility] Contact Info) Description 11/11/2015 Telephone [place] [address] Narda Allen, SCHOOL VOCATIONAL EDUCATOR [facility] [place] [place] [address] Other Social History Tobacco Use Types Packs/Day Years [...] * Telephone Encounter - Narda Allen - 11/11/2015 9:11 AM EST S/P gastric bypass 02/08/14 with total non-adherence to follow up, multiple no- shows, non-response tocalls and letters Eugene called to report terrible problems with my stomach for quite some time. He would like an appt to be scheduled during his vacation. He has an upcoming appt with his PCP Plan: advised Eugene that we are looking forward to seeing him. Appts with BSP RD and me will be scheduled per his request documented in this encounter Plan of Treatment Upcoming Encounters Date Type Department Care Team (Late st Contact Info) Description 05/15/2024 10:00 AM EDT [place] [address] Catrachito Mehta MD [facility] [place] [address] documented as of this encounter Visit Diagnoses Not on filedocumented in this encounter Care Teams Flux Tube Attendant Relationship Specialty Start Date End Date Manolo Castro MD [address] [place] [address] PCP - General 05/14/12 04/21/17 documented as of this encounter
--- OUTSIDE RECORDS SUMMARY | 2024-04-27 14:54 | XMS_ITS | Encounter Summary ---
Author Organization [facility] Address [facility] [place] [address] Care Team Providers Care Hotbed Transfer Operator Name Role Phone Manolo Castro MD Primary Care Provider [phone] Reason for Referral * Consultation (Routine) - Closed Specialty Diagnoses / Procedures Referred By Sonal dawson Referred To Contact General Surgery Diagnoses Abdominal panmonicaus Karlene Membreno MD [facility] [place] [address] Stephanie Butcher MD [facility] [place] [address] Referral ID Status Reason Start Date Expiration Date V isits Requested Visits Authorized [id number] Closed Consult, Test & Treat 02/07/2016 02/06/2017 1 1 Reason for Visit * Reason Comments Advice Only post gastric bypass 2013 * Consultation (Routine) - Specialty Diagnoses / Procedures Referred By Sonal dawson Referred To Contact Plastic Surgery Diagnoses Status post bariatric surgery Intestinal malabsorption, unspecified type Symptomatic abdominal panniculus Narda Allen, HUMAN RESOURCES GENERALIST [facility] [place] [address] Karlene Membreno MD [facility] [place] [address] Referral ID Status Reason Start Date Expiration Date V isits Requested Visits Authorized [id number] Consult, Test & Treat 12/08/2015 12/07/2016 1 1 Encounter Details Date Type Department Care Team (Late st Contact Info) Description 02/07/2016 9:30 AM EDT Office Visit Plastic Surgery at [facility] [place] [address] Karlene Membreno MD [facility] [place] [place] [address] Abdominal pannus Social History Tobacco Use Types [...] Sign Reading Time Taken Comments Blood Pressure - - Pulse - - Temperature - - Respiratory Rate - - Oxygen Saturation - - Inhaled Oxygen Concentration - - Weight 99.5 kg (219 lb 6.4 oz) 02/07/2016 9:36 A M EDT Height 175.3 cm (5' 9.02) 02/07/2016 9:36 AM ED T Body Mass Index 32.38 02/07/2016 9:36 AM EDT documented in this encounter Patient Instructions * Patient Instructions* Chelita-Ene Bethea, Nicole - 02/07/2016 10:11 AM EDT You were given written and verbal preoperative instructions today. To prepare for your upcoming surgery, please review the Pre-Operative Instruction brochure that wasgiven to you. Remember to do the pre op wash, with Hibiclens soap, as instructed. You will need a transit driver. Expect a call from the nurses from the Same Day Dept. the business day before the surgery to instruct you in the time to arrive as well as when to stop eating and drinking. Feel free to call our office @ [phone] if you have any questions or concerns. We monitor the phones from 8-5 Saturday through Saturday.Written and verbal preoperative instructions were given at this visit. Please review the written information prior to your procedure and contact us with any questions.Feel free to call our office at if you have any questions or concerns. We monitor thephones from 8-5 Saturday - Saturday. documented in this encounter Progress Notes * Ene Toribio RMA - 02/07/2016 10:11 AM EDT Pre-Op Teaching for Surgery Surgery: Andreas Written and verbal pre-operative instructions were given and reviewed with patient: Patient was advised to discontinue use of NSAIDS and aspirin products (unless otherwise advised by patient's PCP/Inspector Balance Wheel Motion for cardiac symptoms), fish oil, Vitamin E and herbal supplements for 14 days prior to surgery, to perform the pre-op scrub, and to coordinate a ride home following surgery. Smoking status and medications were further reviewed to rule out/address current use of Nicotine, Coumadin, Plavix, Estrogen or Tamoxifen. Patient needs medical clearance for his coumadin Photos were taken Patient was instructed to call the clinic at with any questions or concerns prior tosurgery. * Karlene Membreno MD - 02/07/2016 9:34 AM EDT Plastic Surgery Consultation Note Karlene Membreno MD PCP: MANOLO CASTRO MD CC: Abdominal pannus HPI: Eugene Rueda is a 65 y.o. male seen in my office today for consideration for abdominal panniculectomy. his PCP is MANOLO CASTRO MD and has requested the consultation. His maximum weight was 269 lbs in 2013. He now weighs 219 lbs. His current weight has been stable for some months. He is comfortable at his current weight. He has lost weight after gastric bypass surgery which was performed in February 2014. He presents today because of increasing difficulty with keeping the fold under his pannus free of rashes and infection, and clean, and odor free. He has tried over the counter powders for this but continues to experience rashes. He is diabetic and reports his most recent HgA1C is 6.8. He is on coumadin for a-fib. Past Medical History Diagnosis Date ??? Blood disorder ??? Circulatory disease ??? Diabetes Past Surgical History Procedure Laterality Date ??? Cholecystectomy ??? Vasectomy ??? Tonsillectomy ??? Total knee arthroplasty bilateral ??? Pro upper gi endoscopy, biopsy 12/11/2013 UPPER GASTROINTESTINAL ENDOSCOPY,WITH BIOPSY SINGLE OR MULTIPLE [facility] ??? Pro upper gi endoscopy, diagnostic 12/25/2013 EGD, UPPER GI ENDOSCOPY performed by Wally Pfeiffer MD at [facility] ??? Pro lap, esophagus, other proc 02/08/2014 LAPAROSCOPIC REVISION OF DELROY FUNDOPLASTY performed by Wally Pfeiffer MD at [facility] ??? Pro lap gastric bypass/monica-en-y 02/08/2014 @LAPAROSCOPIC GASTROPLASTY, performed by Wally Pfeiffer MD at [facility] ??? Pro upper gi endoscopy, diagnostic 02/08/2014 ENDOSCOPY, UPPER GI, DIAGNOSTIC, WITH OR WITHOUT SPECIMENS performed by Wally Pfeiffer MD at [facility] ??? Pro lap, diagnostic abdomen 02/10/2014 LAPAROSCOPY, DIAGNOSTIC, ABDOMEN performed by Wally Pfeiffer MD at [facility] History Social History ??? Marital Status: Spouse Name: N/A Number of Children: N/A ??? Years of Education: N/A Occupational History ??? Not on file. Social History Main Topics ??? Smoking status: Never Smoker ??? Smokeless tobacco: Never Used ??? Alcohol Use: No Comment: 4x year ??? Drug Use: No ??? Sexual Activity: No Other Topics Concern ??? Exercise: Patient Reported No ??? Abuse Or Threat: Physical, Sexual, Verbal No ??? Abuse Or Threat: Help Requested By Patient No Social History Narrative ROS: HEENT, GI, /Renal, Psych, Card, Pulm, Endo, Heme, Immun, Neuro: negative Examination: Ht 175.3 cm (5' 9.02) Wt 99.519 kg (219 lb 6.4 oz) BMI 32.38 kg/m2 Pleasant male in no acute distress, comfortable. He was well oriented and asked appropriate questions throughout the visit. HEENT: MMM, normocephalic, sclera: white, no facial abrasions Neuro: Pupils equal, round, and reactive to light, extra ocular muscles in tact, tongue midline Resp: No stridor, no wheezes, regular rate Extrem: no cyanosis/clubbing/or edema, no rashes Muscuskeletal: gross full ROM x 4 extrem, ambulating, no lesions Abdomen: Grade 2: Panniculus extends to cover the genitalia There is active groin crease intertrigo bilaterally Umbilical remnant appears viable Supraumbilical ventral hernia which extends to umbilical remnant, extends over area of 12 x 20 cm Well healed laparoscopic port incisions No prohibitive scars Impression: Eugene Rueda is a 65 y.o. male is a suitable candidate for panniculectomy which would likely correct his physical symptomatology. We dicussed his ventral hernia, will plan to refer him to Dr. Butcher for repair, possibly to be coordinated with panniculectomy at the same time. He does have co morbitities which will need to be carefully managed, including diabetes and his anticoagulant medication. He understands he will require medical clearance from his PCP. We talked about the scars and risks from panniculectomy. He is aware that infection, delayed wound healing, seroma and numbness are possibilities. He has been provided with the [facility] patient information brochure, as well as their standard informed consent documents on both abdominoplasty, and panniculectomy. He has expressed a desire to proceed with surgical correction. I feel strongly that he will gain significant symptom relief and avoid further intertrigo following surgery. We have obtained photographs today. Insurance Guidelines [ ] Pannus grade 2 or higher [ ] Rashes; prescribed and documented treatment for any rashes that don???t respond to 3 - 6 monthsof treatment. [ ] If the weight has been lost due to gastric bypass, it must be 18 months s/p bariatric surgery [ ] Patient must be at goal weight and stable 6 months Based on this, we will request insurance pre-determination . I will communicate my recommendations to MANOLO CASTRO MD. Surgical Grid: Surgeon: Haseeb Duration: 3-5 hours + 1-2 nights overnight Timeframe: Elective Coordinated with: Dr. Butcher Procedure: Panniculectomy with possible component separation CPT: 04927, 13021-41 Surgical site: Abdomen Side: N/a Anesthesia: General Follow up: 14 days with Terri PAT: Yes, medical clearance from PCP for coumadin management I, Genie Frazier, am acting as scribe for Dr. Membreno. All work documented was performed by Dr. Membreno. ???I performed the above scribed service and agree with the accuracy of the note?? KARLENE MEMBRENO MD documented in this encounter Plan of Treatment Upcoming Encounters Date Type Department Care Team (Late st Contact Info) Description 05/15/2024 10:00 AM EDT [place] [address] Catrachito Mehta MD [facility] [place] [address] Scheduled Referrals Name Type Priority Associated Diagnoses Orde r Schedule Referral to General Surgery Outpatient Referral Routine Abdominal pannus Ordered: 02/07/2016 documented as of this encounter Procedures Procedure Name Priority Date/Time Associated Diagnosis Comments PANNICULECTOMY Routine 02/07/2016 10:10 AM EDT documented in this encounter Visit Diagnoses Diagnosis Abdominal pannus Localized adiposity documented in this encounter Care Teams Hotbed Transfer Operator Relationship Specialty Start Date End Date Manolo Castro MD [address] [place] [address] PCP - General 05/14/12 04/21/17 documented as of this encounter
--- OUTSIDE RECORDS SUMMARY | 2024-04-27 14:54 | XMS_ITS | Encounter Summary ---
Author Organization [facility] Address [facility] [place] [address] Care Team Providers Care Neighborhood Service Center Director Name Role Phone Manolo Castro MD Primary Care Provider [phone] Reason for Visit * Reason Onset Date Comments Reminder Appointment 04/01/2014 Encounter Details Date Type Department Care Team (Late st Contact Info) Description 04/01/2014 Telephone [place] [address] Rebecca Hamilton PA [facility] DR [place] [address] Reminder Appointment Social History Tobacco Use Types [...] encounter Miscellaneous Notes * Telephone Encounter - Darlene Lieberman - 04/05/2014 8:36 AM EDT Appt made. * Telephone Encounter - Kera Uribe - 04/01/2014 2:15 PM EDT Left msg for patient to call and schedule reminder appt documented in this encounter Plan of Treatment Upcoming Encounters Date Type Department Care Team (Late st Contact Info) Description 05/15/2024 10:00 AM EDT [place] [address] Catrachito Mehta MD [facility] [place] [address] documented as of this encounter Visit Diagnoses Not on filedocumented in this encounter Care Teams Neighborhood Service Center Director Relationship Specialty Start Date End Date Manolo Castro MD [address] [place] [address] PCP - General 05/14/12 04/21/17 documented as of this encounter
--- OUTSIDE RECORDS SUMMARY | 2024-04-27 14:55 | XMS_ITS | Encounter Summary ---
Author Organization [facility] [place] [address] Care Team Providers Care Processing Archivist Name Role Phone Manolo Castro MD Primary Care Provider [phone] Encounter Details Date Type Department Care Team (Late Contact Info) Description 02/08/2014 Notes Only [place] [address] Narda Allen, JUVENILE CORRECTIONS OFFICER [facility] [place] [address] Social History Tobacco Use Types Packs/Day Years [...] as of this encounter Progress Notes * Narda Allen - 02/08/2014 3:28 PM EDT Preop Lab done on 02/04/14 at [facility] received: WBC 6.18 Hg 13.4 Hct 41 plt 221. CMP WNL x BUN 27. Cr 1.2 GFR> 60 documented in this encounter Plan of Treatment Upcoming Encounters Date Type Department Care Team (Late Contact Info) Description 05/15/2024 10:00 AM EDT Office [place] [address] Catrachito Mehta MD [facility] [place] [address] documented as of this encounter Visit Diagnoses Not on filedocumented in this encounter Care Teams Processing Archivist Relationship Specialty Start Date End Date Manolo Castro MD [address] [place] [address] PCP - General 05/14/12 04/21/17 documented as of this encounter
--- OUTSIDE RECORDS SUMMARY | 2024-04-27 14:55 | XMS_ITS | Encounter Summary ---
[facility] Organization [facility] [place] [address] Care Team Providers Care Senior Buyer Name Role Phone Manolo Castro MD Primary Care Provider [phone] Encounter Details Date Type Department Care Team (Latest Contact Info) Description 02/08/2014 7:54 AM EDT - 02/12/2014 12:50 PM EDT Hospital Encounter [address] [place] [address] Misty De Guzman MD [facility] [place] [address] Atrial fibrillation Discharge Disposition: Home Social History Tobacco [...] Sign Reading Time Taken Comments Blood Pressure 122/77 02/12/2014 11:47 AM EDT Pulse 83 02/12/2014 7:26 AM EDT Temperature 36.6 ??C (97.9 ??F) 02/12/2014 7:26 AM ED T Respiratory Rate 18 02/12/2014 7:26 AM EDT Oxygen Saturation 99% 02/12/2014 7:26 AM EDT Inhaled Oxygen Concentration - - Weight 112.4 kg (247 lb 12.8 oz) 02/11/2014 3:00 PM EDT Height 175.3 cm (5' 9) 02/08/2014 8:41 PM EDT Body Mass Index 36.59 02/08/2014 8:41 PM EDT documented in this encounter Discharge Instructions * Patient Instructions* Ricky Trotter MD - 02/09/2014 10:56 AM EDT BARIATRIC SURGERY DISCHARGE INFORMATION CONTACT INFORMATION: [phone] Surgeons: Cyndi Lujan Laycock and [place] [phone] Yarn Finisher: [phone] (Saturday through Saturday, 8:00 AM -5:00 PM) Dietitian: [phone] Non-business hours: [phone], ask for general surgeon agriculture consultant FOR EMERGENCIES: CALL 911 (trouble breathing, chest pain, severe abdominal pain or rapid heart beat>120 (30 beats in 15 seconds) CALL FOR ANY OF THE FOLLOWING: Signs and symptoms of infection such as: o Redness or swelling o Drainage or bleeding o Fever over 100.5 F o Increased pain or discomfort at the incision site Persistent vomiting or if you are unable to keep food or fluids down in a 24 hour period. Signs and symptoms of a blood clot: new leg swelling or redness, pain in leg, shortness of breath Any concerns, such as problems with urination, bowels, bleeding, pain or leg swelling BATHING AND WOUND CARE: You may shower at 2 days post-op. Wash incisions with soap, water rinse, pat dry and leave open to air if not draining. Steri-strips may be removed or will fall off in 5 days. Pat dry if they become wet. If you had open gastric bypass and have kellie: Kellie should be removed 10 - 12 days after surgery. This can be done at [facility] or via Primary Care Provider (PCP). Do not soak wound for 2 weeks after laparoscopic surgery and 3 weeks after open surgery. ACTIVITY, LIFTING AND DRIVING: Daily walking is encouraged as tolerated. For laparoscopic surgery: there are no lifting restrictions. ?? For open surgery: no strenuous activity like heavy lifting (above 10 pounds) for 6 weeks. No abdominal exercise (i.e. sit-ups) for 3 months. For all patients: Do not drive for 2 weeks. After [address] when comfortable and not taking narcotic pain medicine. DIET: follow Stage II diet for three weeks. Log intake. Daily goals are: 48-64 ounces of fluids and 60 grams of protein. MEDICATIONS: For 2 WEEKS ONLY: LARGE pills (bigger than the size of a calcium pill) must be crushed, or broken into small pieces. Pills smaller than the size of a Tylenol DO NOT need to be crushed. Not all medications can be crushed. Check with your pharmacist first. BLOOD CLOT PREVENTION: make sure to be active, walking at least 4 times a day. You are NOT being discharged on any blood thinners because of your post- operative bleeding. WE RECOMMEND THAT YOU RESTART YOUR COUMADIN IN ONE WEEK on February 19, 2014. Just start by taking your normal dose and follow up with your PCP to check your INR. ULCER PREVENTION: omeprazole 20 mg daily (or any medication you may currently take for heartburn/reflux) must be taken for 3 MONTHS after surgery: Take this to prevent ulcers, even if you do not haveheartburn. The prescription may be refilled after the 3 month course if you have heartburn or reflux GALLSTONE PREVENTION: (ONLY if you have a gallbladder): Take Ursodiol (Actigall) 300 mg twice a day. START: 2 weeks after surgery, take for 6 months then stop unless otherwise directed. PAIN MEDICATION: Take pain medicine as NEEDED for pain. For mild pain, acetaminophen (Tylenol) is recommended. MEDICATIONS TO AVOID FOR TWO MONTHS AFTER SURGERY: Avoid anti-inflammatory non-steroidal medications, such as Advil, Aleve, etc. Refer to Medicationsthat may increase the risk of bleeding in handbook. If you take aspirin for your heart or to prevent strokes, continue as prescribed. PATIENTS WITH DIABETES: Check blood sugars four times a day, fasting, 2 hours after meals and if unwell. For blood sugar less than 150, do not restart diabetes medications. If you see the diabetes team during your hospital stay, follow their diabetes care recommendations Patients on oral diabetic medication: If blood sugar is over 200 on more than 3 rechecks, call [place] care physician or diabetic specialist for specific recommendations, or as recommended at discharge. For patients on insulin and oral diabetic medications: If blood sugar is consistently under 200, you will not likely need medication. If blood sugar is over 200 on a few rechecks, call your primary care doctor or diabetic specialist for specific recommendations or as recommended at discharge. Follow up with primary care doctor or internal controls specialist in 1-2 weeks. Bring meter to appointments. PATIENTS WITH HIGH BLOOD PRESSURE: Monitor your blood pressure regularly. If you feel dizzy and have been drinking 48-64 ounces of fluid, have your blood pressure checked. If your blood pressure is low, call your primary care provider. Keep a log to bring to your PCP appointments. PATIENTS WHO TAKE DIURETICS (MEDICATION FOR SWELLING WATER PILLS): Check with your surgical team prior to discharge for instructions. In general, this medication can be decreased or stopped after surgery, since it may cause dehydration. Monitor closely for increased swelling after discharge, and call your primary care doctor if swelling increases. PATIENTS ON ANTI-DEPRESSANT OR MENTAL HEALTH MEDICATIONS: Do not stop or decrease your medications unless advised. Ongoing counseling is encouraged. VITAMIN AND MINERAL SUPPLEMENTATION: Vitamin B12 500 mcg pill daily. Complete multivitamin w/ minerals Chewable, one pill twice daily. After 2 weeks may take regular vitamin pills. Calcium Calcium citrate 600 mg with vitamin D 400 units twice a day between meals. Iron with vitamin C Take iron as instructed per Handbook- (only if you have anemia, iron deficiencyor regular menses) FOLLOW-UP CARE: See your PCP 10-14 days after surgery for wound and vital signs check. See your surgeon and dietitian at 3 weeks after surgery See the dietitian and nurse practitioner at 4, 12, 18, and 24 months, then yearly for life. WOMEN OF CHILDBEARING AGE: Fertility may increase with weight loss. Avoid for 18-24 months after surgery. Condoms alone are not acceptable as a form of control. Do not take control pills for the first month after surgery. Future Appointments Date Time Provider Department Center 03/02/2014 3:00 PM Bariatric, Bus Girl [facility] 03/02/2014 3:40 PM Misty De Guzman MD [facility] documented in this encounter Medications at Time [...] nightly. lovastatin (MEVACOR) 20 mg tablet 04/24/2010 acetaminophen (TYLENOL) 650 mg/20.3 mL oral liquid Take 20.3 mLs by mouth every 4 hours. 02/12/2014 05/07/2014 oxyCODONE (ROXICODONE) 5 mg/5 mL solution Take 5-10 mLs by mouth every 4 hours as needed for Pain. 100 mL 0 02/12/2014 05/07/2014 warfarin (COUMADIN) 5 mg tablet Take 1 [...] the long acting Effexor again. 02/12/2014 04/22/2017 DILTiazem (CARDIZEM) 60 mg tablet Take 1 tablet by mouth 4 times daily. 100 tablet 1 02/12/2014 05/07/2014 venlafaxine (EFFEXOR) 37.5 mg tablet Take 1 tablet by mouth 2 times daily. 30 tablet 1 02/12/2014 05/07/2014 ursodiol (ACTIGALL) 300 mg capsule Take 1 [...] Take 250 mcg by mouth daily. 12/08/2015 GLYBURIDE ORAL Take by mouth 2 times daily. 05/07/2014 ramipril (ALTACE) 10 mg capsule Take 10 mg by mouth daily. 12/08/2015 ibuprofen (ADVIL;MOTRIN) 400 mg tablet Take 400 mg by mouth as needed. Rarely takes for back pain 05/07/2014 metFORMIN (GLUCOPHAGE) 500 mg tablet Take 1,000 mg by mouth 2 times daily (with meals). 03/25/2019 documented as of this encounter Progress Notes * Ora Vela RN - 02/12/2014 1:14 PM EDT Patient discharged to home with no services. IV removed, site benign. Pt denies CP or SOB. Discussed pain management with patient. Denies pain. Patient has all belongings and supplies needed. Discharge instructions and prescriptions were given and reviewed. Patient verbalizes understanding. Patientencouraged to call with questions or concerns. Patient left floor independently. * Demi Jung RN - 02/11/2014 7:31 PM EDT Telemetry: Patient being monitored on telemetry. No report of CP, SOB, nausea, indigestion. VSS. Patient on Diltiazem drip at 5 ml hour, also started on po Diltiazem today, at 1800 dose increased to 60 mg po every six hours. Tele strips showing patient to be in afib, HR 75 - 130.with rare pvcs. Nursing continues to monitor patient on telemetry and diltiazem drip. * Melba Elmore RN - 02/11/2014 10:09 AM EDT Care Management/ CRC Pager# [phone]/ Assessment and Initial discharge planning S: I am feeling pretty good today. I had some jello and some apple juice. That is a good thing! My son Momo will be helping me when I am able to go home. O: Met with patient this morning. Notes reviewed. [place] Patient has [employer], National [employer] Blue PPO, and Medicare (part A only) insurance. [facility] Patient is POD# 3 laparoscopic Keysha-en-Y gastric bypass, POD# 1 laparoscopy, evacuation of intra-abdominal blood. At this time patient is on Stage I clear diet, IVF at 40/hr. MONICA drain x1 to bulb suction (placed intra-operatively on 02/10/14). Thornton catheter D/C this morning. Patient OOB ambulating with assistance.Diltiazem 30mg po q6hr.Dilt gtt being weaned. Effexor po BID. Hytrin po qpm. Tylenol po q4hr prn. Oxycodone solution po q4hr prn. 99% on 2liters oxygen via carton forming machine helper this morning. A: Patient progressing post-op. Patient has plan for his son to help him at time of patient's discharge. No VNA service needs identified at this time. P: I will continue in CRC role, following patient's in-hospital course. I am available to assist should discharge needs arise. * Ricky Trotter MD - 02/11/2014 7:13 AM EDT General Surgery Resident Inpatient Progress Note ID: Eugene Rueda is a 63 y.o. male POD 3 s/p keysha-en-y gastric bypass and POD 1 s/p takeback for bleeding 24hr events: To OR yesterday for bleeding - found a large amount of clot under liver and diaphragm but no activesite of bleeding. Rate control much better and Hgb stable. Subjective: Patient is feeling well. Had some pain last night but is well controlled this morning. Denies nausea or lightheadedness. O: Last value Range last 24hrs Temperature Temp: 36.4 ??C (97.5 ??F) Temp: [36.1 ??C (97 ??F)-37.1 ??C (98.8 ??F)] Heart Rate Heart Rate: 78 Heart Rate: [72-100] Blood Pressure BP: 114/72 mmHg BP: (101-122)/(56-75) Respiratory Rate Resp: 18 Resp: [14-24] SpO2 SpO2: 95 % SpO2: [88 %-100 %] 2L GTT: Dilt @ 10 02/10 0701 - 02/11 0700 In: 2647.7 [I.V.:2647.7] Out: 2745 [Urine:2175] 250 since [place] MONICA 70cc Physical Exam: General: NAD, resting comfortably in bedside recliner CVS: irregularly irregular, rate controlled Pulm: CTAB Abd: protuberant, large ecchymosis over abdomen is stable, nontender to palpation, incisions are clean and dry, MONICA with SS fluid Skin: warm, dry Recent Labs Basename 02/11/14 04402/10/14 1550 02/10/14 0733 02/10/14 0240 02/09/14 2100 02/09/14 1705 02/08/14 0834 WBC 10.2* 11.0* 10.9* 10.5* 12.3* -- -- HGB 9.8* 10.0* 9.2* 10.1* 10.9* -- -- HCT 29.3* 30.8* 28.0* 30.8* 33.2* -- -- PLATELET 180 185 166 209 204 -- -- PT -- -- 17.0* 16.4* -- 16.3* 15.0 INR -- -- 1.3* 1.3* -- 1.3* 1.1 PTT -- -- -- 33 -- 31 -- Recent Labs Basename 02/11/1444502/10/14 0733 02/10/14 0240 02/09/14 1705 02/09/14 0437 NA 140 -- 140 139 139 K 4.1 -- 3.9 4.2 4.2 CL 104 -- 103 100 102 CO2 25 -- 26 26 23 BUN 17 -- 26* 30* 18 CREATININE 0.90 -- 1.57* 2.96* 1.13 GLUCOSE 152 -- 142 144 -- CALCIUM 8.0* -- 8.1* 8.7 -- MAGNESIUM -- 0.79 -- -- 0.75 PHOS -- -- -- -- 4.5 NEW IMAGING: ASSESSMENT: Eugene Rueda is a 63 y.o. male 1 Day Post-Op s/p keysha-en-y gastric bypass and takeback for bleeding on POD 2 Hemoglobin is stable and Pain well controlled DC [employer] and start Oxycodone liquid for pain controll Dilt GTT for a fib - restarting PO dilt today and hopefull wean GTT Stage 1 Gastric bypass diet - continue IVF. DC Thornton but closely monitor UOP Replete lytes PRN No lovenox considering bleeding risk - SCDs and encourage ambulation Floor status RICKY SHOEMAKER MD * Mikayla Lincoln RN - 02/11/2014 6:57 AM EDT S: No pain O: Please see tele sheet A: Pt denies chest pain or shortness of breath. Pt tolerating rate and rhythm while on Diltiazem drip 10mg. P: Will continue to monitor on tele. * Tierra Frost RN - 02/10/2014 6:52 PM EDT TELE NOTE S: Pt reporting no dizziness SOB, or chest pain O: Please see tele strips in chart A: Pt tolerating current rate and rhythm P: Continue to monitor on telemetry * Ricky Trotter MD - 02/10/2014 3:54 PM EDT General Surgery Post-Operative Note Eugene Rueda is a 63 y.o. male is s/p takeback for bleeding Patient states that pain is well controlled. He is asking to drink and states he is very thirsty. HR is better controlled. Last value Range last 24hrs Temperature Temp: 36.8 ??C (98.2 ??F) Temp: [36.1 ??C (97 ??F)-37 ??C (98.6 ??F)] Heart Rate Heart Rate: 84 Heart Rate: [72-136] Blood Pressure BP: 115/72 mmHg BP: (93-123)/(56-76) Respiratory Rate Resp: 18 Resp: [14-24] SpO2 SpO2: 93 % SpO2: [87 %-100 %] Intake/Output Summary (Last 24 hours) at 02/10/14 1554 Last data filed at 02/10/14 1411 Gross per 24 hour Intake 6148.8 ml Output 2120 ml Net 4028.8 ml Pertinent Lab Data: Recent Labs Basename 02/10/14 0733 02/10/14 0240 02/09/14 2100 02/09/14 1705 02/09/14 0437 02/08/14 0834 WBC 10.9* 10.5* 12.3* 14.4* 12.8* -- HGB 9.2* 10.1* 10.9* 11.4* 12.7* -- HCT 28.0* 30.8* 33.2* 35.4* 38.6* -- PLATELET 166 209 204 236 249 -- PT 17.0* 16.4* -- 16.3* -- 15.0 INR 1.3* 1.3* -- 1.3* -- 1.1 PTT -- 33 -- 31 -- -- Recent Labs Basename 02/10/14 0702/10/14 0240 02/09/14 1705 02/09/14 0437 NA -- 140 139 139 K -- 3.9 4.2 4.2 CL -- 103 100 102 CO2 -- 26 26 23 BUN -- 26* 30* 18 CREATININE -- 1.57* 2.96* 1.13 GLUCOSE -- 142 144 -- CALCIUM -- 8.1* 8.7 -- MAGNESIUM 0.79 -- -- 0.75 PHOS -- -- -- 4.5 Gen: NAD Cardio: irregularly irregular Pulm: CTAB ABD: soft, ecchymosis is stable, port sites are clean and dry without swelling : thornton in place with clear yellow urine Lines: A/P: -progressing well post-operatively -continue current management * Yennifer Mcneil RN - 02/10/2014 1:29 PM EDT Break coverage. * Meliton Mcpherson RN - 02/10/2014 12:53 PM EDT 1230:Pt admitted to PACU after report from anesthesia provider; monitors on; alarms settings confirmed and appropriate for pt; admission assessment ongoing; see PACU phase I flowsheet. 1252: Pt to 2L NC * Misty De Guzman MD - 02/10/2014 7:32 AM EDT General Surgery Resident Inpatient Progress Note ID: Eugene Rueda is a 63 y.o. male s/p keysha-en-y gastric bypass 24hr events: Eventful 24 hours: Barium swallow done yesterday showing no leaks at the anastomoses. hematoma developed around midline port site, UOP terrible during the day with creatinine almost doubling to 3, a fib became poorly rate controlled and started on a dilt gtt. Given 3L bolus last night, UOP improvedto around 100cc/hr, creatinine down to 1.57, hematoma is large with hemoglobin trend from 12.7 -> 10.9 -> 10.1 Subjective: Patient is without complaints during any events last night. Denies pain at the hematomasite. Denies nausea and is requesting something to drink. No lightheadedness, palpitations or SOB with a fib. O: Last value Range last 24hrs Temperature Temp: 36.5 ??C (97.7 ??F) Temp: [36.5 ??C (97.7 ??F)-37 ??C (98.6 ??F)] Heart Rate Heart Rate: 89 Heart Rate: [72-136] Blood Pressure BP: 97/69 mmHg BP: (90-123)/(60-76) Respiratory Rate Resp: 18 Resp: [16-20] SpO2 SpO2: 96 % SpO2: [87 %-97 %] 2L GTT: Dilt @ 15 02/09 701 - 02/10 0700 In: 4837.8 [P.O.:50; I.V.:4787.8] Out: 835 [Urine:835] 625 since MN Physical Exam: General: NAD, resting comfortably in bed CVS: irregularly irregular, intermittently tachycardic Pulm: CTAB Abd: protuberant, large ecchymosis over abdomen, nontender to palpation, incisions are clean and dry except for midline incision which is oozing some blood Skin: warm, dry Recent Labs Basename 02/10/14 0240 02/09/14 2100 02/09/14 1705 02/09/14 0437 02/08/14 0834 WBC 10.5* 12.3* 14.4* 12.8* -- HGB 10.1* 10.9* 11.4* 12.7* -- HCT 30.8* 33.2* 35.4* 38.6* -- PLATELET 209 204 236 249 -- PT 16.4* -- 16.3* -- 15.0 INR 1.3* -- 1.3* -- 1.1 PTT 33 -- 31 -- -- Recent Labs Basename 02/10/14 0240 02/09/14 1705 02/09/14 0437 NA 140 139 139 K 3.9 4.2 4.2 CL 103 100 102 CO2 26 26 23 BUN 26* 30* 18 CREATININE 1.57* 2.96* 1.13 GLUCOSE 142 144 -- CALCIUM 8.1* 8.7 -- MAGNESIUM -- -- 0.75 PHOS -- -- 4.5 NEW IMAGING: ASSESSMENT: Eugene Rueda is a 63 y.o. male 2 Days Post-Op s/p keysha-en-y gastric bypass Check labs at 8am: Hemogram, INR and Magnesium Pain well controlled Dilt GTT for a fib - cardiology consult as rate still poorly controlled and Dilt is maxed out Continue NPO with IVF. Thornton in place to closely monitor Is/Os Replete lytes PRN No lovenox considering bleeding risk - SCDs and encourage ambulation Floor status RICKY SHOEMAKER MD Attending Note: Pts Hgb continues to decrease at a worrisome rate and has yet to stabilize. My impression is that he has bleeding from his abdominal wall at one of the trocar sites. Initially we thought this was contained within the soft tissues of the abdominal wall but at this point I am worried that there is a significant intraabdominal component as well. I discussed this with Mr Rueda and advise a return to the OR for a diagnostic laparoscopy, evacuate hematoma, and evaluate his gastric bypass anatomy, with possible conversion to an open approach. He seems to understand and wished to proceed. Plan on OR jam. Misty De Guzman MD * Mikayla Lincoln RN - 02/10/2014 6:47 AM EDT S: Im in no pain O: See tele strip A: Pt in no pain and tolerating medications appropriately. Pt tolerating current rate and rhythm. Pt denies N/V, SOB, and chest pain. P: Will continue to monitor on tele. * Mikayla Lincoln RN - 02/10/2014 6:38 AM EDT Pt with abdominal lap site saturated when pt sat up, changed and reinforced. Abdomen with large ecchymotic area but pt denies tenderness or pain. Pt with low UO, pt bolused x2L. Pt 02 dropped to 87, pt put on 2L NC with 02 in high 90s. Pt with uncontrolled tachycardia and afib pushed lopressor which dropped SBP from 117 to 93. Pt started on tele. IV Diltiazem started and titrated up to 15mg/hr with heart rate under 100 with some increases to low 120s. Pt denies chest pain and SOB. * Milka Armstrong RN - 02/09/2014 8:08 PM EDT 2000 decrease in O2 noted, Patient denies shortness of breath, nausea or chest pain, 2 liters NC applied with positive effect. Increase in heart noted. MD Luna updated, see new orders. * Ravin Porter MD - 02/09/2014 7:18 PM EDT Called for pt with bleeding from laparoscopy port site S Per RN Eugene Rueda had BRB from port site on right abdomen soaking 4x4 dressing as well as significant ecchymosis. Pt. Complains of thirst, no other symptoms O VS BP 112/63 Pulse 93 Temp 37 ??C (98.6 ??F) (Oral) Resp 16 Ht 175.3 cm (5' 9) Wt 104.327 kg (230 lb) BMI 33.95 kg/m2 SpO2 96% with O2 RA On exam pt is resting comfortably in bed Abdomen soft and nontender with large areas of ecchymosis inferior to port sites bilaterally. 4x4 dressing on right lateral 5 mm port site with blood staining No palpable fluid or induration Small amount of dark blood with fat droplets expressed from right abdominal port site Labs significant for 1.3 g/dL drop in Hgb and 1.8 mg/dL rise in creatinine today. A 63 y.o. male s/p laparoscopic delroy revision and gastroplasty, s/s concerning for intra-abdominal bleeding. P Bolus 1 liter, follow urine output and HR Urine labs to assess feNa Repeat hemogram in 2 hours Second year house staff and fellow notified of patient status RN asked to page if patient condition worsens. Addendum 2200 Hgb only slightly decreased, UOP improving Bleeding from port site stopped tachycardia persisting Plan: telemetry EKG Check hemoglobin in AM Addendum 0400 Patient started on diltiazem drip for A-fib with persistent tachycardia and poor response to metoprolol IV. Tachycardia resolving, urine output remains good, AM hemoglobin at 0300 slightly decreased since last night. * Kenyatta Sands RN - 02/09/2014 4:33 PM EDT Office of Care Management (OCM) / Clinical Rf Engineer (CRC)/ Initial Assessment Discussed patient with Provider Team and in multidisciplinary discharge-planning rounds. Reviewed record; patient off unit for procedure. Introduced/reviewed CRC role and services accepted. REASON for HOSPITALIZATION:s/p keysha-en-y gastric bypass NPO; [employer]; IVF's;UGI/SBF pending;Lovenox (on Coumadin for AF) PMH Past Medical History Diagnosis Date ??? Blood disorder ??? Circulatory disease ??? 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 PRIMARY CARE PHYSICIAN: MANOLO CASTRO MD [place] [id number] / [facility] [place] [id number] POTENTIAL DISCHARGE NEEDS: none anticipated PATIENT/FAMILY EDUCATION NEEDS:per discharge summary ANTICIPATED BARRIERS TO DISCHARGE:none TRANSPORTATION @ D/C: PLAN: CRC will continue to monitor progress, follow for continuity of care and assist with discharge planning while hospitalized KENYATTA SANDS RN CRC for Melba Elmore RN CRC pager [phone] . * Ricky Trotter MD - 02/09/2014 8:26 AM EDT General Surgery Resident Inpatient Progress Note ID: Eugene Rueda is a 63 y.o. male s/p keysha-en-y gastric bypass 24hr events: ?? Mild nausea post op, resolved with Zofran. Tachy and hypertensive last night, but stable since MN. Subjective: Pain is well controlled and nausea has not returned. No complaints. O: Last value Range last 24hrs Temperature Temp: 36.9 ??C (98.4 ??F) Temp: [36.5 ??C (97.7 ??F)-37.3 ??C (99.1 ??F)] Heart Rate Heart Rate: 76 Heart Rate: [76-119] Blood Pressure BP: 104/70 mmHg BP: (104-148)/(70-105) Respiratory Rate Resp: 16 Resp: [16-18] SpO2 SpO2: 93 % SpO2: [93 %-100 %] 02/08 0701 - 02/09 0700 In: 4667 [I.V.:4667] Out: 3160 [Urine:3030] Physical Exam: General: NAD, resting comfortably in bedside recliner CVS: RRR Pulm: CTAB Abd: protuberant, nontender to palpation, swelling around midline supraumbilical port site, incisions are clean and dry Skin: warm, dry Recent Labs Basename 02/09/14 0437 02/08/14 0834 WBC 12.8* -- HGB 12.7* -- HCT 38.6* -- PLATELET 249 -- PT -- 15.0 INR -- 1.1 PTT -- -- Recent Labs Basename 02/09/14 0437 NA 139 K 4.2 CL 102 CO2 23 BUN 18 CREATININE 1.13 GLUCOSE -- CALCIUM -- MAGNESIUM 0.75 PHOS 4.5 NEW IMAGING: ?? Barium swallow this AM ASSESSMENT: Eugene Rueda is a 63 y.o. male 1 Day Post-Op s/p keysha-en-y gastric bypass Will evaluate anastomoses with barium swallow this AM. If no leak appreciated, will advance to Stage 1 diet. STEPAN thornton this AM. Encourage ambulation. Lovenox BID. RICKY SHOEMAKER MD * Ravin Porter MD - 02/08/2014 9:02 PM EDT Progress Note/Post Op Check Procedure/Intervention: Laparoscopic roue en y gastric bypass Patient location: Med Surgical Floor S: Eugene Rueda is currently resting comfortably with no complaints. Pain well controlled. Mild nausea resolved with medication. Denies vomiting, fevers, chills, chest pain, palpitations, or shortness of breath. O: Post-Op Vitals: Last value Range last 12 hrs Temperature Temp: 36.8 ??C (98.2 ??F) Temp: [36.8 ??C (98.2 ??F)-37.3 ??C (99.1 ??F)] Heart Rate Heart Rate: 86 Heart Rate: [79-102] Blood Pressure BP: 148/96 mmHg BP: (109-148)/(73-96) Respiratory Rate Resp: 16 Resp: [16-18] SpO2 SpO2: 98 % SpO2: [96 %-100 %] 2 NC I/Os: I/O last 1 completed shift: In: 3000 [I.V.:3000] Out: 660 [Urine:530; Other:100; Blood:30] Physical Exam: General: NAD, AAOx3 Cardiovascular: Irregularly irregular, no M/R/G Respiratory: CTAB, no W/R/R GI/Abd: Soft, Nontender, ND : thornton draining clear yellow urine Extrem: no c/c/e Wound: incisions without drainage, no erythema, hematoma, or ecchymosis. Assessment and Recommendations: Progressing well postoperatively Orders verified Continue ordered post-operative care * Claire Bone RN - 02/08/2014 6:15 PM EDT Patient arrived to unit. Oriented to floor. Denies pain and nausea at this time. Using MIDDLE SCHOOL SPANISH TEACHER appropriately, patient very drowsy but easily woken. Lap sites CDI. HR irreg. Will continue to monitor. * Radha Sanchez RN - 02/08/2014 4:49 PM EDT Report to Claire 4w. Pt sleepy, easily arousable. States he is comfortable. Gave chief creative officer with instruction. documented in this encounter H&P Notes * Homero Hernandez MD - 02/08/2014 9:05 AM EDT Patient Name: Eugene Rueda Patient Age: 63 y.o. Birthdate: 1950 Admit date: 02/08/2014 Attending Physician: Misty De Guzman MD No changes since prior office visit. On examination, he appears well and in no distress. Head and neck exam reveals equal, reactive pupils and a supple neck. His chest is clear bilaterally and his heart sounds are normal with no adventitious sounds or murmurs. His abdomen is soft with no masses or t enderness. Extremity and Neuro exams are grossly normal. Eugene Rueda is a 62-year-old gentleman who presents referred for possible bariatric surgery. He is a gentleman that has currently had full participation in the [facility] Bariatric Surgery Program and meets NIH criteria for weight loss surgery. He is also someone that I had performed a laparoscopic paraesophageal hernia repair and Delroy fundoplication upon back in 2001. I have not seen him any time recently. He has done well from that surgery. He underwent a recent barium swallow to evaluate the integrity of that repair and was noted to have a small recurrent paraesophageal hernia. The Dave wrap appeared to be intact, but there also appears to be a small amount of gastroesophageal reflux seen on the barium swallow. Although, the patient would report he has no reflux symptoms. I spent the majority of our 40 minutes today in [id number] conversation regarding various treatment options for obesity with different surgical interventions. He is somewhat unique in that he has surgery on his gastroesophageal junction specifically with the paraesophageal hernia repair and Delroy fundoplication. That will certainly have a role in deciding ultimately which operation we do at the time of surgery. Ideally we could reduce the herniated stomach back into the abdominal cavity, take down the fundoplication that is currently present, and perform a sleeve gastrectomy. I reviewed with him in detail that at times when you go to re-operate in this setting, the initial fundoplication is densely adherent to the esophagus making attempts to completely unwrap the stomach very likely to damage the esophagus or stomach with result in potentially life threatening complications. Therefore ultimately what we would do at the time of surgery would be determined by the findings present at the time of surgery. These could range from a takedown of the initial fundoplication and sleeve gastrectomy to leaving the fundoplication intact and performing either a gastric bypass or a sleeve gastrectomy to the portion of the stomach below that. I went over it with him in detail the risk section of the patient manual for bariatric surgery. Overall he seems to understand and feels comfortable giving me flexibility about what we ultimately perform at the time surgery. We also will do an upper GI endoscopy. He is on Coumadin chronically. We will stop that for five days ahead of time and use a Lovenox bridge. We also will arrange for a upper GI endoscopy, as he has not had one since prior to his paraesophageal hernia repair in 2001. Overall he seems comfortable with that plan. documented in this encounter Procedure Notes * Provider, Scanning - 02/13/2014 12:56 PM EDTAssociated Order(s): SCAN DOC: NETWORK OPERATIONS PROJECT MANAGER documented in this encounter Miscellaneous Notes * Miscellaneous - Provider, Scanning - 02/13/2014 12:56 PM EDT * Miscellaneous - Provider, Scanning - 02/13/2014 12:56 PM EDT * Miscellaneous - Provider, Scanning - 02/13/2014 12:56 PM EDT * Discharge Summary - Ricky Trotter MD - 02/12/2014 9:10 AM EDT TRAUMA & ACUTE CARE SURGERY Inpatient - Discharge Summary Patient Name: Eugene Rueda Patient Age: 63 y.o. : 1950 Attending Physician: Misty De Guzman MD Date of Admission: 02/08/2014 Date of Discharge: 02/12/2014 Diagnosis: obesity Incidental Findings: HPI and Hospital Course: Eugene Rueda is a 63 y.o. male admitted on 02/08/2014 for a Keysha-en-Y gastric bypass surgery. His surgery was uneventful but he developed a large port site hematoma. His hemoglobin continued to trend down and on Post-operative day 2 the patient was taken back to the operating room to explore fora source of bleeding. There was a large amount of blood clot removed from the abdomen but no active site of bleeding was found. After this operation the patient's hemoglobin remained stable and his vital signs returned to normal. Eugene Rueda's pain was adequately controlled, he was maintaining adequate oxygen saturation on room air, and was hemodynamically stable. He was tolerating a diet without abdominal complaints and voiding adequately. WBC and Hgb were stable. He was ambulating. Eugene Rueda was evaluated bythe Surgery Team and deemed medically stable for discharge on February 12, 2014. Updated Allergies/ADRs: No Known Allergies Operations/Major Procedures: Operations: 02/08/2014 Surgeon(s) and Role: * Misty De Guzman MD - Primary * Homero Hernandez MD - Fellow * Ricky Trotter MD - Resident-Lesser Role: Procedure(s): LAPAROSCOPIC REVISION OF DELROY FUNDOPLASTY @LAPAROSCOPIC GASTROPLASTY, ENDOSCOPY, UPPER GI, DIAGNOSTIC, WITH OR WITHOUT SPECIMENS Pending Lab Data at Discharge: None. Condition at Discharge: Stable Important Studies and Lab Data: Labs: Recent Labs Basename 02/12/14 0532 02/11/14 0446 02/10/14 1550 02/10/14 0733 02/10/14 0240 02/09/14 1705 WBC 7.3 10.2* 11.0* 10.9* 10.5* -- HGB 9.5* 9.8* 10.0* 9.2* 10.1* -- HCT 29.3* 29.3* 30.8* 28.0* 30.8* -- PLATELET 200 180 185 166 209 -- PT -- -- -- 17.0* 16.4* 16.3* INR -- -- -- 1.3* 1.3* 1.3* PTT -- -- -- -- 33 31 Recent Labs Basename 02/12/14 0532 02/11/14 0446 02/10/14 0733 02/10/14 0240 02/09/14 1705 NA 140 140 -- 140 139 K 3.5 4.1 -- 3.9 4.2 CL 103 104 -- 103 100 CO2 26 25 -- 26 26 BUN 16 17 -- 26* 30* CREATININE 0.67* 0.90 -- 1.57* 2.96* GLUCOSE 131 152 -- 142 144 CALCIUM 8.2* 8.0* -- 8.1* 8.7 MAGNESIUM -- -- 0.79 -- -- PHOS -- -- -- -- -- Studies: None Discharge Examination: Last value Range last 12 hrs Temperature Temp: 36.6 ??C (97.9 ??F) Temp: [36.6 ??C (97.9 ??F)] Heart Rate Heart Rate: 83 Heart Rate: [65-83] Blood Pressure BP: 122/77 mmHg BP: (122-125)/(77-84) Respiratory Rate Resp: 18 Resp: [18] SpO2 SpO2: 99 % SpO2: [96 %-99 %] I/Os: I/O last 3 completed shifts: In: 2711.5 [P.O.:1500; I.V.:1211.5] Out: 2160 [Urine:2085; Other:75] I/O this shift: In: 240 [P.O.:240] Out: 600 [Urine:600] Physical Exam: NAD, obese, pleasant gentleman Irregularly irregular, rate controlled CTAB Abdomen is protuberant, soft, hematoma is stable, incisions are clean and dry without swelling Extremities are warm and well perfused Discharge to: Home Discharge Conditions/Prognosis: Stable Discharge Medications: The following medications have been prescribed for you. If you notice any adverse reactions to your medications, please contact your primary care physician immediately or go tothe nearest Emergency Department. Your Medications As of 02/12/2014 12:21 PM Notice Some of the medications listed here do not show instructions, such as how often to take the medication. Ask your doctor or nurse how to use these medications. New Medications Dose Details acetaminophen 650 mg/20.3 mL oral liquid Commonly known as: TYLENOL Take 20.3 mLs by mouth every 4 hours. 650 mg Refills: 0 * DILTiazem 60 mg tablet Commonly known as: CARDIZEM Take 1 tablet by mouth 4 times daily. 60 mg Quantity: 100 tablet Refills: 1 oxyCODONE 5 mg/5 mL solution Commonly known as: ROXICODONE Take 5-10 mLs by mouth every 4 hours as needed for Pain. 5-10 mg Quantity: 100 mL Refills: 0 * venlafaxine 37.5 mg tablet Commonly known as: EFFEXOR Take 1 tablet by mouth 2 times daily. 37.5 mg Quantity: 30 tablet Refills: 1 * Notice: This list has 2 medication(s) that are the same as other medications prescribed for you. Read the directions carefully, and ask your doctor or other care provider to review them with you. Continued medications with new dosing Dose Details * DILTiazem 240 mg 24 hr capsule Commonly known as: DILACOR XR Take 1 capsule by mouth daily. Take the short acting Diltiazem four times daily until you can swallow pills. Once you can swallow pills, you can start retaking this long acting Diltiazem. What changed: doctor's instructions 240 mg Refills: 0 * venlafaxine 75 mg 24 hr capsule Commonly known as: EFFEXOR-XR Take 1 capsule by mouth daily. You will be prescribed a short acting Effexor, take this two times daily while you are still crushing pills. Once you can swallow pills, you can begin taking the long acting Effexor again. What changed: doctor's instructions 75 mg Refills: 0 warfarin 5 mg tablet Commonly known as: COUMADIN Take 1 tablet by mouth daily. Start February 19, 2014 What changed: See the new instructions. 5 mg Refills: 0 * Notice: This list has 2 medication(s) that are the same as other medications prescribed for you. Read the directions carefully, and ask your doctor or other care provider to review them with you. Continued medications, unchanged Dose Details GLYBURIDE ORAL Take by mouth 2 times daily. Refills: 0 ibuprofen 400 mg tablet Commonly known as: ADVIL;MOTRIN Take 400 mg by mouth as needed. Rarely takes for back pain 400 mg Refills: 0 lovastatin 20 mg tablet Commonly known as: MEVACOR (Ask your doctor or nurse how to take this medication.) Refills: 0 metFORMIN 500 mg tablet Commonly known as: GLUCOPHAGE Take 1,000 mg by mouth 2 times daily (with meals). 1000 mg Refills: 0 MULTI VITAMIN ORAL Take by mouth daily. Refills: 0 omeprazole 20 mg capsule Commonly known as: PRILOSEC Take 1 capsule by mouth daily for 90 days. Start at discharge to prevent ulcer. Refill Rx if have heartburn Start taking on: 03/13/2014 20 mg Quantity: 90 capsule Refills: 0 ramipril 10 mg capsule Commonly known as: ALTACE Take 10 mg by mouth daily. 10 mg Refills: 0 terazosin 2 mg capsule Commonly known as: HYTRIN Take 2 mg by mouth nightly. 2 mg Refills: 0 ursodiol 300 mg capsule Commonly known as: ACTIGALL Take 1 capsule by mouth 2 times daily for 180 days. Start at 2 weeks post op on 02/08 and take until 08/07/14. 300 mg Quantity: 180 tablet Refills: 1 VITAMIN B-12 250 mcg tablet Take 250 mcg by mouth daily. Generic drug: cyanocobalamin (vitamin B-12) 250 mcg Refills: 0 Follow-up Care & Plans: For questions, orders or appointments related to your continuing care after your discharge, you or your provider should contact the physician that managed that part of your care. Bariatric Surgery - [phone]: Follow-up with Dr. De Guzman PCP: MANOLO CASTRO MD, . Please follow-up with your PCP in 1-2 weeks or sooner as needed. Scheduled Appointments: The following appointments have been scheduled on your behalf: Future Appointments and Orders Future Appointments: Provider: Department: Dept Phone: Center: 03/02/2014 3:00 PM Bus Girl Bariatric General Surgery [phone] [facility] 03/02/2014 3:40 PM Misty De Guzman MD General Surgery [phone] [facility] Outpatient Services/Studies: No discharge procedures on file. Instructions Given to Patient at Discharge: Provider Instructions BARIATRIC SURGERY DISCHARGE INFORMATION CONTACT INFORMATION: [phone] Surgeons: Cyndi Lujan Laycock and [place] [phone] Yarn Finisher: [phone] (Saturday through Saturday, 8:00 AM -5:00 PM) Dietitian: [phone] Non-business hours: [phone], ask for general surgeon agriculture consultant FOR EMERGENCIES: CALL 911 (trouble breathing, chest pain, severe abdominal pain or rapid heart beat>120 (30 beats in 15 seconds) CALL FOR ANY OF THE FOLLOWING: Signs and symptoms of infection such as: o Redness or swelling o Drainage or bleeding o Fever over 100.5 F o Increased pain or discomfort at the incision site Persistent vomiting or if you are unable to keep food or fluids down in a 24 hour period. Signs and symptoms of a blood clot: new leg swelling or redness, pain in leg, shortness of breath Any concerns, such as problems with urination, bowels, bleeding, pain or leg swelling BATHING AND WOUND CARE: You may shower at 2 days post-op. Wash incisions with soap, water rinse, pat dry and leave open to air if not draining. Steri-strips may be removed or will fall off in 5 days. Pat dry if they become wet. If you had open gastric bypass and have kellie: Kellie should be removed 10 - 12 days after surgery. This can be done at [facility] or via Primary Care Provider (PCP). Do not soak wound for 2 weeks after laparoscopic surgery and 3 weeks after open surgery. ACTIVITY, LIFTING AND DRIVING: Daily walking is encouraged as tolerated. For laparoscopic surgery: there are no lifting restrictions. ?? For open surgery: no strenuous activity like heavy lifting (above 10 pounds) for 6 weeks. No abdominal exercise (i.e. sit-ups) for 3 months. For all patients: Do not drive for 2 weeks. After [address] when comfortable and not taking narcotic pain medicine. DIET: follow Stage II diet for three weeks. Log intake. Daily goals are: 48-64 ounces of fluids and 60 grams of protein. MEDICATIONS: For 2 WEEKS ONLY: LARGE pills (bigger than the size of a calcium pill) must be crushed, or broken into small pieces. Pills smaller than the size of a Tylenol DO NOT need to be crushed. Not all medications can be crushed. Check with your pharmacist first. BLOOD CLOT PREVENTION: make sure to be active, walking at least 4 times a day. You are NOT being discharged on any blood thinners because of your post- operative bleeding. WE RECOMMEND THAT YOU RESTART YOUR COUMADIN IN ONE WEEK on February 19, 2014. Just start by taking your normal dose and follow up with your PCP to check your INR. ULCER PREVENTION: omeprazole 20 mg daily (or any medication you may currently take for heartburn/reflux) must be taken for 3 MONTHS after surgery: Take this to prevent ulcers, even if you do not haveheartburn. The prescription may be refilled after the 3 month course if you have heartburn or reflux GALLSTONE PREVENTION: (ONLY if you have a gallbladder): Take Ursodiol (Actigall) 300 mg twice a day. START: 2 weeks after surgery, take for 6 months then stop unless otherwise directed. PAIN MEDICATION: Take pain medicine as NEEDED for pain. For mild pain, acetaminophen (Tylenol) is recommended. MEDICATIONS TO AVOID FOR TWO MONTHS AFTER SURGERY: Avoid anti-inflammatory non-steroidal medications, such as Advil, Aleve, etc. Refer to Medicationsthat may increase the risk of bleeding in handbook. If you take aspirin for your heart or to prevent strokes, continue as prescribed. PATIENTS WITH DIABETES: Check blood sugars four times a day, fasting, 2 hours after meals and if unwell. For blood sugar less than 150, do not restart diabetes medications. If you see the diabetes team during your hospital stay, follow their diabetes care recommendations Patients on oral diabetic medication: If blood sugar is over 200 on more than 3 rechecks, call yourprimary care physician or diabetic specialist for specific recommendations, or as recommended at discharge. For patients on insulin and oral diabetic medications: If blood sugar is consistently under 200, you will not likely need medication. If blood sugar is over 200 on a few rechecks, call your primary care doctor or diabetic specialist for specific recommendations or as recommended at discharge. Follow up with primary care doctor or internal controls specialist in 1-2 weeks. Bring meter to appointments. PATIENTS WITH HIGH BLOOD PRESSURE: Monitor your blood pressure regularly. If you feel dizzy and have been drinking 48-64 ounces of fluid, have your blood pressure checked. If your blood pressure is low, call your primary care provider. Keep a log to bring to your PCP appointments. PATIENTS WHO TAKE DIURETICS (MEDICATION FOR SWELLING WATER PILLS): Check with your surgical team prior to discharge for instructions. In general, this medication can be decreased or stopped after surgery, since it may cause dehydration. Monitor closely for increased swelling after discharge, and call your primary care doctor if swelling increases. PATIENTS ON ANTI-DEPRESSANT OR MENTAL HEALTH MEDICATIONS: Do not stop or decrease your medications unless advised. Ongoing counseling is encouraged. VITAMIN AND MINERAL SUPPLEMENTATION: Vitamin B12 500 mcg pill daily. Complete multivitamin w/ minerals Chewable, one pill twice daily. After 2 weeks may take regular vitamin pills. Calcium Calcium citrate 600 mg with vitamin D 400 units twice a day between meals. Iron with vitamin C Take iron as instructed per Handbook- (only if you have anemia, iron deficiencyor regular menses) FOLLOW-UP CARE: See your PCP 10-14 days after surgery for wound and vital signs check. See your surgeon and dietitian at 3 weeks after surgery See the dietitian and nurse practitioner at 4, 12, 18, and 24 months, then yearly for life. WOMEN OF CHILDBEARING AGE: Fertility may increase with weight loss. Avoid for 18-24 months after surgery. Condoms alone are not acceptable as a form of control. Do not take control pills for the first month after surgery. Future Appointments Date Time Provider Department Center 03/02/2014 3:00 PM Bariatric, Bus Girl [facility] 03/02/2014 3:40 PM Misty De Guzman MD [facility] General Instructions None Future Appointments and Orders Future Appointments: Provider: Department: Dept Phone: Center: 03/02/2014 3:00 PM Bus Girl Bariatric General Surgery [phone] [facility] 03/02/2014 3:40 PM Misty De Guzman MD General Surgery [phone] [facility] Call your doctor if: Please call your doctor immediately or go to an Emergency Department if you notice worsening pain not controlled by pain medications, uncontrolled headache, vision changes, chest pain, difficulty breathing, persistent nausea and vomiting, new redness or swelling in any extremities, new onset weakness or changes in sensation, or for any fevers greater than 101.3 F. Your care was managed by the Bariatric Surgery Team at [facility]. If you have any questions or concerns, please feel free to contact us. Provider Contact Information: General Surgery Clinic: [facility] (after business hours): CC: MANOLO CASTRO MD Signed: 02/12/2014 * Plan of Care - Bari Duckworth RN - 02/12/2014 4:44 AM EDT Problem: Fall/Trauma/Injury Risk (Adult, Obstetrics) Goal: Absence of Trauma/Injury/Falls Patient will demonstrate the desired outcomes. Outcome: Absent and monitoring Patient safety maintained throughout the shift. Call zuniga, water, urinal and remote in reach at alltimes. Wheels locked on chair. Patient using call zuniga appropriately when needing assistance. See Doc flow sheet for full intervention and prevention. Problem: Skin Integrity Impairment, Risk/Actual (Adult, Obstetrics) Goal: Skin Integrity/Wound Healing Patient will demonstrate the desired outcomes. Outcome: Absent and monitoring Abdomen with lap sites with CDI derma dye. Epigastric region with ecchymosis and small area that is hard to palpation. Continue to monitor. Problem: Pain, Acute (Adult, Obstetrics) Goal: Acceptable Pain Control/Comfort Level Patient will demonstrate the desired outcomes. During the shift patient denies pain. He refuses scheduled tylenol. See doc flow sheets for assessments. Continue to monitor. * Plan of Care - Mikayla Lincoln RN - 02/11/2014 5:36 AM EDT Problem: Pain, Acute (Adult, Obstetrics) Goal: Acceptable Pain Control/Comfort Level Patient will demonstrate the desired outcomes. Outcome: Absent and monitoring Please see flowsheet for pain assessment. Pt with Dilaudid [employer]DLE [employer]CHO[employer] SPANISH TEACHER 0.3/15/5 pt understands use, not utilized overnight. Pain tolerable for pt. Will continue to monitor and assess. * Plan of Care - Mikayla Lincoln RN - 02/11/2014 5:32 AM EDT Problem: Fall/Trauma/Injury Risk (Adult, Obstetrics) Goal: Absence of Trauma/Injury/Falls Patient will demonstrate the desired outcomes. Outcome: Absent and monitoring Pt with call zuniga in reach, demonstrates use, non skid socks worn out of bed. Pt up to chair with assistance. Will continue to monitor. Problem: Skin Integrity Impairment, Risk/Actual (Adult, Obstetrics) Goal: Skin Integrity/Wound Healing Patient will demonstrate the desired outcomes. Outcome: Present (see interventions, notes) Pt with multiple abdominal lap sites open to air with no drainage. Pt with MONICA drain, dressing changed, clean dry and intact. Will continue to monitor and assess. * Plan of Care - Tierra Frost RN - 02/10/2014 5:02 PM EDT Problem: General Plan of Care Goal: Plan of Care Review Pt to OR around 0930, pt returned around 1400. Pt. Alert and oriented x3. Vital signs within defined limits. Pt. Reporting 2/10 pain. Pt stating good relief with Dilaudid [employer] SPANISH TEACHER. Pt reporting no nausea,SOB or chest pain. Assessment as documented. Will continue to monitor. * Op Note - Misty De Guzman MD - 02/10/2014 2:56 PM EDT [facility] Operative Note Patient Name: Eugene Rueda : [id number] MR#: [id number] Case Date: 02/10/2014 Surgeon: Surgeon(s) and Role: * Misty De Guzman MD - Primary * Ricky Trotter MD - Resident-Venetian Blind Maker * Homero Hernandez MD - [facility] Preoperative diagnosis: post-op bleeding s/p rnygb Postoperative diagnosis: post-op bleeding s/p rnygb Procedure(s): LAPAROSCOPY, DIAGNOSTIC, ABDOMEN Preoperative diagnosis is intra-abdominal bleeding status post Keysha-en-Y gastric bypass. Postop Diagnosis: Same. Procedure Performed: Diagnostic laparoscopy, evacuation of intra-abdominal blood. Surgeons: Misty De Guzman M.D.; Ricky Shoemaker M.D.; Homero Gonzales M.D. Anesthesia: General endotracheal anesthesia. Complications: None. Indications for Surgery: The patient is a 63-year-old gentleman who underwent a laparoscopic Keysha-en-Y gastric bypass two days earlier on 02/08/2014. On postoperative day one he had a modest drop in his hemoglobin as well what appeared to be an abdominal wall hematoma. He was hemodynamically stable, was observed overnight, and has now progressed to have a slowly drifting down hemoglobin, although again he remains asymptomatic, and has now had some softening of his blood pressure. Following review of his therapeutic options, he has elected to go the operating room for a diagnostic laparoscopy for presumed postoperative bleeding. Findings at the Time of Surgery: We thought this was going to be bleeding from one of the abdominal trocar sites. In reality he had bleeding from raw surface up near the area of his proximal gastric pouch more related to the dissection that had been performed in order to take down his previous Delroy fundoplication rather than any of the staple lines related to the Keysha-en-Y gastric bypass itself. He underwent extensive irrigation as well as clot evacuation. He had very little in the way of any evidence of blood loss from the abdominal wall itself, and this all appeared to be centered up near the area of the proximal gastric pouch, although there was no definitive ongoing bleeding point once we evacuated the clot. Overall he tolerated the procedure well. Details of the Operation: The patient was brought to the operating room, and following uneventful induction of general endotracheal anesthesia his abdomen was prepped and draped in the usual sterile fashion. The 11 trocar, the 12 trocar, and the two left lateral abdominal 5-mm trocars were utilized for intra-abdominal access. Pneumoperitoneum to 15 mmHg pressure was obtained without difficulty. Using the angled 30-degree laparoscope, the initial inspection of the abdomen did not reveal any significant bleeding from the abdominal wall. There was minimal blood down in the pelvis. This was irrigated with the patient in Trendelenburg location. We then looked in the upper abdomen in the region of the previous gastrojejunostomy and dissection of his previous Delroy fundoplication. He indeed did have a fair bit of clot up in this area, and this appeared to be the area that was the source for the intra-abdominal bleeding. Using copious irrigation and suction, a large amount of clot was evacuated from this region. The bleeding source appeared to be centered more towards the area of the dissection and takedown of the previous fundoplication rather than anything related to the staple lines of the gastric bypass. All these were visually inspected. There was no ongoing bleeding from any of the staple lines, either on the bypass stomach or on the proximal gastric pouch or the gastrojejunostomy itself. The small-bowel mesentery of the Keysha limb was also inspected and no evidence of bleeding seen, and the jejunojejunostomy was also well visualized and no evidence of bleeding seen there. Underneath the left lobe of liver there was clot there which was evacuated. The previously mobilized right side of the fundoplication also was visualized, and there was definitely areas of significant clot in this region. Once this had been evacuated, there was no on going further bleeding. We utilized both FloSeal and Tisseel in this location in order to hopefully provide some additional level of hemostasis and prevent any further bleeding. The patient is on Coumadin chronically, but this had been stopped five days prior to surgery, and I do not think this played any significant role in his take back for bleeding. Once we felt confident with the amount of hemostasis we had achieved and clot evacuation, the 11-mm trocar sites were removed under direct visualization. These were closed at the fascial level using the Kalia-Isha trocar closure device and 0 Vicryl suture, and then the 5-mm trocar sites were also removed with hemostasis assured. We also left a Rao drain and brought it out through the left lateral 5-mm trocar site. The end of the drain was placed in the region of the proximal gastric pouch, was placed to grenade suction, and held in place at the skin level using a 2-0 Prolene suture. At this point, the pneumoperitoneum was evacuated. All trocar sites were closed at the skin level using a running subcuticular closure of 4-0 Vicryl followed by Steri-Strips followed by Band-Aids. Overall he tolerated the procedure well and was taken to the recovery room postop in stable condition. * Brief Op Note - Misty De Guzman MD - 02/10/2014 1:57 PM EDT Brief Operative Note Patient Name: Eugene Rueda : [id number] MR#: [id number] Case Date: 02/10/2014 Surgeon: Surgeon(s) and Role: * Misty De Guzman MD - Primary * Ricky Trotter MD - Resident-Venetian Blind Maker * Homero Hernandez MD - Resident-Venetian Blind Maker Preoperative diagnosis: post-op bleeding s/p rnygb Postoperative diagnosis: post-op bleeding s/p rnygb Procedure(s): LAPAROSCOPY, DIAGNOSTIC, ABDOMEN Anesthesia: General Findings:Bleeding from region of proximal stomach pouch though not from any staple lines. It seems related to the dissection needed to expose and takedown the prior fundoplication. Complications: none Estimated Blood Loss: 1000cc Drains: Rao drain in upper abdomen next to proximal gastric pouch. Disposition: pacu Condition: stable (Please see the Surgical Encounter Summary for any Implant and Specimen details pertinent to this patient.) * OR Attestation - Msity De Guzman MD - 02/10/2014 1:55 PM EDT Attestation: Case Date: 02/10/2014 I was the attending for the procedure and was present throughout the operation and supervised the resident MISTY DE GUZMAN MD 02/10/2014 * Brief Op Note - Ricky Trotter MD - 02/10/2014 12:28 PM EDT Brief Operative Note Patient Name: Eugene Rueda : [id number] MR#: [id number] Case Date: 02/10/2014 Surgeon: Surgeon(s) and Role: * Misty De Guzman MD - Primary * Ricky Trotter MD - Resident-Venetian Blind Maker * Homero Hernandez MD - Resident-Venetian Blind Maker Preoperative diagnosis: post-op bleeding s/p rnygb Postoperative diagnosis: post-op bleeding s/p rnygb Procedure(s): LAPAROSCOPY, DIAGNOSTIC, ABDOMEN Anesthesia: General Findings: dense clot under liver and diaphragm, no site of active bleeding Complications: none Fluids: 1300cc Estimated Blood Loss: 500cc Drains: 10 Malay MONICA drain Disposition: awakened from anesthesia, extubated and taken to the recovery room in a stable condition, having suffered no apparent untoward event. Condition: doing well without problems (Please see the Surgical Encounter Summary for any Implant and Specimen details pertinent to this patient.) * Plan of Care - Milka Armstrong RN - 02/09/2014 9:59 AM EDT Problem: General Plan of Care Goal: Plan of Care Review Outcome: Present (see interventions, notes) Reviewed plan of care with patient. Problem: Fall/Trauma/Injury Risk (Adult, Obstetrics) Goal: Identify Signs and Symptoms and Related Risk Factors Signs and symptoms and related risk factors are identified upon initiation of Human Response Clinical Practice Guideline (CPG) Outcome: Present (see interventions, notes) Patient alert and orientated, call zuniga within reach and using appropriately. Masimo active and audible Problem: Skin Integrity Impairment, Risk/Actual (Adult, Obstetrics) Goal: Identify Signs and Symptoms and Related Risk Factors Signs and symptoms and related risk factors are identified upon initiation of Human Response Clinical Practice Guideline (CPG) Outcome: Present (see interventions, notes) Lap sites dry and intact, with old dried drainage noted. No redness or swelling. Mepilex intact. * Plan of Care - Claudia Locke RN - 02/08/2014 10:39 PM EDT Problem: Fall/Trauma/Injury Risk (Adult, Obstetrics) Goal: Identify Signs and Symptoms and Related Risk Factors Signs and symptoms and related risk factors are identified upon initiation of Human Response Clinical Practice Guideline (CPG) Outcome: Absent and monitoring Patient is at risk to fall, call zuniga within reach at all times, see doc flow sheets for further interventions. Problem: Skin Integrity Impairment, Risk/Actual (Adult, Obstetrics) Goal: Identify Signs and Symptoms and Related Risk Factors Signs and symptoms and related risk factors are identified upon initiation of Human Response Clinical Practice Guideline (CPG) Outcome: Absent and monitoring 6 lap sites are intact, right proximal lap sites has moist serosang drainage, but otherwise intact and well approximated. Heels elevated, reminded to reposition, NPO with MIVF running continuously, will continue to monitor and re-assess. * Brief Op Note - Misty De Guzman MD - 02/08/2014 2:51 PM EDT Brief Operative Note Patient Name: Eugene Rueda : [id number] MR#: [id number] Case Date: 02/08/2014 Surgeon: Surgeon(s) and Role: * Misty De Guzman MD - Primary * Homero Hernandez MD - Fellow * Ricky Trotter MD - Resident-Lesser Role Preoperative diagnosis: OBESITY Postoperative diagnosis: Obesity Procedure(s): LAPAROSCOPIC REVISION OF DELROY FUNDOPLASTY @LAPAROSCOPIC GASTROPLASTY, ENDOSCOPY, UPPER GI, DIAGNOSTIC, WITH OR WITHOUT SPECIMENS Anesthesia: General Findings: Dense adhesions in upper abdomen from prior surgery, EGD ok Complications: none Fluids: 2100cc Estimated Blood Loss: 33cc Drains: none Disposition: pacu Condition: stable (Please see the Surgical Encounter Summary for any Implant and Specimen details pertinent to this patient.) * OR Attestation - Misty De Guzman MD - 02/08/2014 2:50 PM EDT Attestation: Case Date: 02/08/2014 I was the attending for the procedure and was present throughout the operation and supervised the resident MISTY DE GUZMAN MD 02/08/2014 * Miscellaneous - Sang Ward - 02/08/2014 11:13 AM EDT * Miscellaneous - Provider, Scanning - 02/08/2014 11:13 AM EDT * Op Note - Mitsy De Guzman MD - 02/08/2014 9:37 AM EDT [facility] Operative Note Patient Name: Eugene Rueda : [id number] MR#: [id number] Case Date: 02/08/2014 Surgeon: Surgeon(s) and Role: * Misty De Guzman MD - Primary * Homero Hernandez MD - Fellow * Ricky Trotter MD - Resident-Lesser Role Preoperative diagnosis: OBESITY Postoperative diagnosis: OBESITY Procedure(s): LAPAROSCOPIC REVISION OF DELROY FUNDOPLASTY @LAPAROSCOPIC GASTROPLASTY, ENDOSCOPY, UPPER GI, DIAGNOSTIC, WITH OR WITHOUT SPECIMENS Date of operation is 02/08/2014. Preoperative Diagnosis: Morbid obesity. Postop Diagnosis: The same. Procedure Performed: Laparoscopic revision of previous Delroy fundoplication, laparoscopic Keysha-en-Y gastric bypass, extensive lysis of adhesions, upper GI endoscopy. Surgeons: Misty De Guzman M.D.; Homero Gonzales M.D.; Ricky Shoemaker M.D. Anesthesia: General endotracheal anesthesia. Complications: None. Indications for Surgery: The patient is a 61-year-old gentleman who previously had undergone a laparoscopic paraesophageal hernia repair and Delroy fundoplication by myself in 2001. More recently he has been engaged with the bariatric surgery program at [facility]. He has multiple weight-related comorbidities, he meets NIH criteria for weight loss surgery, and he has had full participation in the [facility] bariatric surgery program. Following review of his therapeutic options, he has elected to undergo a laparoscopic Keysha-en-Y gastric bypass. Findings at the Time of Surgery: The patient had a great deal of adhesions in the upper abdomen consistent with his previous paraesophageal hernia repair. We elected to leave the right side of the fundoplication in place, as it was densely adherent to the right lateral sidewall of the esophagus and the posterior esophagus as well as the diaphragm closure. We took down the left half of the fundoplication and formed our proximal gastric pouch just below the previous fundoplication. We performed this with a 100-cm Keysha limb. The gastrojejunostomy was evaluated using the saline insufflation test at the conclusion of the procedure, and there was no evidence of leak. Overall he tolerated the procedure well. Details of the Operation: The patient was brought to the operating room and placed in a supine position. Following uneventful induction of general endotracheal anesthesia, an orogastric tube was placed as well as Venodyne stockings and a Thornton catheter. His abdomen was prepped and draped in the usual sterile fashion. The patient had had a previous umbilical hernia repair with mesh. Therefore, we elected to place a Veress needle in the left upper quadrant. The position of the needle was confirmed using the saline drop test, and a pneumoperitoneum to 15 mmHg of pressure was obtained without difficulty. The first trocar was an 11-mm trocar placed 15 cm inferior to the xiphoid just to the left of midline. The area underneath the initial Veress needle insertion was visually inspected, and no evidence of injury was seen, as well as the area underneath the initial trocar site. No evidence was seen. He actually had minimal adhesions from his previous laparoscopic surgeries. We were utilizing a 30-degree angled laparoscope. The next trocar was a 5-mm trocar placed in the left lateral abdomen. The next trocar was a 5-mm trocar placed midway between the left lateral trocar and the umbilicus. The next trocar was a 5-mm trocar placed in the subxiphoid location. Through this an expandable fan retractor was positioned below the left lobe of liver, which was then retracted cephalad. The patient was noted to have adhesions between the undersurface of the left lobe of liver and the previous fundoplication. These were taken down using sharp dissection. The next trocar was a 5-mm trocar placed in the right upper abdomen. The last trocar was a 12-mm trocar placed in the right mid abdomen. Focusing on the upper abdomen, he clearly had a great of adhesions in the region of the gastroesophageal junction related to his previous surgery. Using careful sharp and blunt dissection, we were able to identify the groove of the initial fundoplication. The left half of the fundoplication was dissected off the lateral aspect of the esophagus and return to its normal anatomic location. The right side was densely adherent to the side of the esophagus as well as the diaphragmatic closure. We were able to dissect posteriorly and encircle the esophagus with a Ralston drain. This was held in place using an Endoloop for the repair of the esophageal dissection. We demonstrated there was no evidence of a recurrent hiatal hernia. The diaphragm closure appeared to be intact, and we were able to fully mobilize. We did not take any additional short gastrics now, as that had been done at the initial procedure. At this point, we felt we would perform the gastric bypass just below the remaining wrapped portion of the fundoplication rather than risk injury to that portion of the stomach that was still densely adherent to the right side of the esophagus. With this in mind, we then measured 5 cm down the lesser curvature from the gastroesophageal junction. A plane was developed between the lesser curvature fat and the serosa of stomach, and the posterior gastric space was entered without difficulty. Beginning at this level, the proximal gastric pouch was formed. The nasogastric tube was removed as well as all other items from the esophagus. The [place] 60 blue load was angled horizontally at this level and fired. Subsequent firings of the blue load were then angled up towards the angle of His to create our proximal gastric pouch measuring approximately 30 to 40 mL. Following formation of the pouch, both the bypass stomach staple line as well as the proximal pouch staple line, as well as the remaining aspect of the fundoplication on the right side of the esophagus, all appeared to be pink, viable, and well perfused. We then placed the patient in Trendelenburg. The omentum was placed in the upper abdomen. The transverse colon also was placed in the upper abdomen. We were able to identify the ligament of Treitz, which was then followed distally for 50 cm. A window was developed between the mesentery and the small-bowel serosa, and using an [place] 60 with a white load the jejunum was divided at this level. Additional length on the mesentery was obtained using monopolar cautery. Once we had adequate length, in addition we actually had placed a clip on the proximal side of the jejunum once it had been divided for subsequent orientation. We then measured 100 cm distal on the jejunum, and the jejunojejunostomy was then performed by placing two stay sutures between the proximal divided end and the side of the distal jejunum. Enterotomies were then created and the jejunojejunostomy fashioned using a single firing of the [place] 60 with a white load. That enterotomy was then closed in two layers using a running suture of 2-0 Nurolon. The greater omentum was then split off the midportion of the transverse colon using the Harmonic scalpel. The Keysha limb was brought up to the proximal gastric pouch. It was noted to reach without any significant tension. Four stay sutures were placed between the posterior aspect of the proximal gastric pouch and the Keysha limb. Enterotomies were then formed using monopolar cautery in the gastric pouch and the Keysha limb, and a partial firing of the [place] 60 blue load at 30 mm was formed for the gastrojejunostomy. A 30-Malay bougie was then passed by Anesthesia down the esophagus into the proximal pouch into the efferent limb. With the bougie in place, we then closed the enterotomy in two layers using a running suture of 2-0 Nurolon. Following closure of the enterotomy, the bougie was removed. A bowel clamp was placed on the proximal efferent limb, and an upper GI endoscopy was performed. The upper abdomen was flooded with saline, and with the gastric pouch insufflated there was no evidence of a leak. The pouch was decompressed using the gastroscope. Bowel clamp was removed. Upper abdomen was irrigated. Excellent hemostasis was assured. At this point, the trocars were removed. The 12-mm trocar site was closed at the fascial level using the Kalia-Isha suture closure device and 0 Vicryl suture. All other trocars were removed under direct visualization, and the pneumoperitoneum was evacuated. All trocars were closed at the skin level using a running subcuticular closure of 4-0 Vicryl followed by Steri-Strips followed by Band-Aids. Overall he tolerated the procedure very well and was taken to the recovery room postop in stable condition. documented in this encounter Plan of Treatment Upcoming Encounters Date Type Department Care Team (Late st Contact Info) Description 05/15/2024 10:00 AM EDT [place] [address] Catrachito Mehta MD [facility] [place] [address] documented as of this encounter Procedures Procedure Name Priority Date/Time Associated Diagnosis Comments NETWORK OPERATIONS PROJECT MANAGER SCAN 02/13/2014 12:56 PM EDT POCT GLUCOSE Routine 02/12/2014 12:09 PM EDT POCT GLUCOSE Routine 02/12/2014 7:04 AM EDT DIFFERENTIAL, AUTOMATED Routine 02/12/2014 5:32 AM EDT CBC (WITH DIFF) Routine 02/12/2014 5:32 AM EDT BASIC METABOLIC PANEL (NON-FASTING) Routine 02/12/2014 5:32 AM EDT POCT GLUCOSE Routine 02/12/2014 3:50 AM EDT POCT GLUCOSE Routine 02/11/2014 11:26 PM EDT POCT GLUCOSE Routine 02/11/2014 7:20 PM EDT POCT GLUCOSE Routine 02/11/2014 4:15 PM EDT POCT GLUCOSE Routine 02/11/2014 11:45 AM EDT POCT GLUCOSE Routine 02/11/2014 6:56 AM EDT DIFFERENTIAL, AUTOMATED Routine 02/11/2014 4:46 AM EDT CBC (WITH DIFF) Routine 02/11/2014 4:46 AM EDT BASIC METABOLIC PANEL (NON-FASTING) STAT 02/11/2014 4:46 AM EDT POCT GLUCOSE Routine 02/11/2014 4:35 AM EDT POCT GLUCOSE Routine 02/10/2014 11:29 PM EDT POCT GLUCOSE Routine 02/10/2014 7:58 PM EDT POCT GLUCOSE Routine 02/10/2014 4:06 PM EDT DIFFERENTIAL, AUTOMATED Routine 02/10/2014 3:50 PM EDT CBC (WITH DIFF) Routine 02/10/2014 3:50 PM EDT POCT GLUCOSE Routine 02/10/2014 12:34 PM EDT LAPAROSCOPY, DIAGNOSTIC, ABDOMEN (WRVU 5.14) 02/10/2014 9:35 AM EDT post-op bleeding s/p rnygb LAPAROSCOPY, DIAGNOSTIC Routine 02/10/2014 8:33 AM EDT HEMOGRAM STAT 02/10/2014 7:33 AM EDT PROTHROMBIN TIME STAT 02/10/2014 7:33 AM EDT MAGNESIUM STAT 02/10/2014 7:33 AM EDT POCT GLUCOSE Routine 02/10/2014 7:25 AM EDT POCT GLUCOSE Routine 02/10/2014 4:11 AM EDT DIFFERENTIAL, AUTOMATED Routine 02/10/2014 2:40 AM EDT APTT STAT 02/10/2014 2:40 AM EDT PROTHROMBIN TIME STAT 02/10/2014 2:40 AM EDT CBC (WITH DIFF) Routine 02/10/2014 2:40 AM EDT BASIC METABOLIC PANEL (NON-FASTING) Routine 02/10/2014 2:40 AM EDT POCT GLUCOSE Routine 02/09/2014 11:39 PM EDT EKG 12-LEAD Routine 02/09/2014 10:11 PM EDT Atrial fibrillation POCT GLUCOSE Routine 02/09/2014 10:03 PM EDT HEMOGRAM Routine 02/09/2014 9:00 PM EDT ELECTROLYTES, URINE, RANDOM Routine 02/09/2014 8:50 PM EDT CREATININE, URINE, RANDOM Routine 02/09/2014 8:50 PM EDT POCT GLUCOSE Routine 02/09/2014 7:21 PM EDT DIFFERENTIAL, AUTOMATED Routine 02/09/2014 5:05 PM EDT ABO/RH TYPING STAT 02/09/2014 5:05 PM EDT APTT STAT 02/09/2014 5:05 PM EDT PROTHROMBIN TIME STAT 02/09/2014 5:05 PM EDT CBC (WITH DIFF) Routine 02/09/2014 5:05 PM EDT ANTIBODY SCREEN STAT 02/09/2014 5:05 PM EDT TYPE AND SCREEN ([facility]P/EDGAR) STAT 02/09/2014 5:05 PM EDT BASIC METABOLIC PANEL (NON-FASTING) STAT 02/09/2014 5:05 PM EDT POCT GLUCOSE Routine 02/09/2014 5:05 PM EDT XR FLUORO UPPER GI WITH SMALL BOWEL FOLLOW THRU Routine 02/09/2014 3:50 PM EDT POCT GLUCOSE Routine 02/09/2014 11:56 AM EDT POCT GLUCOSE Routine 02/09/2014 7:19 AM EDT POCT GLUCOSE Routine 02/09/2014 4:53 AM EDT SCAN, PERIPHERAL BLOOD Routine 02/09/2014 4:37 AM EDT DIFFERENTIAL, AUTOMATED Routine 02/09/2014 4:37 AM EDT CREATININE Routine 02/09/2014 4:37 AM EDT CBC (WITH DIFF) Routine 02/09/2014 4:37 AM EDT BUN Routine 02/09/2014 4:37 AM EDT PHOSPHORUS Routine 02/09/2014 4:37 AM EDT MAGNESIUM Routine 02/09/2014 4:37 AM EDT GLUCOSE, FASTING Routine 02/09/2014 4:37 AM EDT ELECTROLYTES PANEL Routine 02/09/2014 4: 37 AM EDT POCT GLUCOSE Routine 02/09/2014 12:26 AM EDT POCT GLUCOSE Routine 02/08/2014 7:01 PM EDT POCT GLUCOSE Routine 02/08/2014 3:23 PM EDT ENDOSCOPY, UPPER GI, DIAGNOSTIC, WITH OR WITHOUT SPECIMENS (WRVU 2.09) 02/08/2014 9:40 AM EDT OBESITY @LAPAROSCOPIC GASTROPLASTY W/ KEYSHA-EN-Y CONSTRUCTION (WRVU 29.4) 02/08/2014 9:40 AM EDT OBESITY LAPAROSCOPIC REVISION OF DELROY FUNDOPLASTY (WRVU 48.75) 02/08/2014 9:40 AM EDT OBESITY POCT GLUCOSE Routine 02/08/2014 9:29 AM EDT PROTHROMBIN TIME Routine 02/08/2014 8:34 AM EDT documented in this encounter Results * SCAN DOC: NETWORK OPERATIONS PROJECT MANAGER (02/13/2014 12:56 PM EDT) Anatomical Region Laterality Modality Other Narrative 02/13/2014 1:14 PM EDT Procedure Note Provider, Scanning - 02/13/2014 12:56 PM EDT Scanning Provider MEDIA MGR SCAN EXT O RDR/RSLT * POCT Glucose (02/12/2014 12:09 PM EDT) POC Glucose 145 60 - 199 mg/dL [facility] Comment: Supplemental ranges: <110 mg/dL before meals <200 mg/dL all other times of the day Blood specimen (specimen) 02/12/2014 12:09 PM EDT 02/12/2014 12:09 PM EDT Misty De Guzman MD POINT OF CARE TEST ORDERABLES [facility]ERICK [facility]LEXIS * POCT Glucose (02/12/2014 7:04 AM EDT) POC Glucose 134 60 - 199 mg/dL [facility] Comment: Supplemental ranges: <110 mg/dL before meals <200 mg/dL all other times of the day Blood specimen (specimen) 02/12/2014 7:04 AM EDT 02/12/2014 7:04 AM EDT Misty De Guzman MD POINT OF CARE TEST ORDERABLES [facility] * (ABNORMAL) Differential, Automated (02/12/2014 5:32 AM EDT) Neutrophils % 70.2 34.0 - 71.0 % CERWALDO AverailENNIUM Neutr Abs (ANC) 5.11 1.50 - 6.30 x10(3)/mc L [facility] AverailENNIUM Lymphocytes % 11.5(L) 19.0 - 53.0 % CERNER MILLENNIUM Lymphocytes Abs 0.8(L) 1.0 - 3.6 x10(3)/mc L CERNER MILLENNIUM Monocytes % 11.2 4.0 - 13.0 % CERNER MILLENNIUM Monocyte Abs 0.8 0.2 - 1.0 x10(3)/mc L CERNER MILLENNIUM Eosinophils % 6.7 0.0 - 7.0 % CERNER MILLENNIUM Eosinophils Abs 0.5 0.0 - 0.5 x10(3)/mc L CERNER MILLENNIUM Basophils % 0.3 0.0 - 2.0 % CERNER MILLENNIUM Basophils Abs 0.0 0.0 - 0.2 x10(3)/mc L CERNER MILLENNIUM Immature Gran % 0.10 0.00 - 0.66 % CERNER MILLENNIUM Comment: Immature granulocytes(IG's)percentage and absolute count will include metamyelocytes, myelocytes, and promyelocytes. Blood smears from CBCs yielding IG's will be scanned manually for concordance. If this scan disagrees with the automated IG or if promyelocytes are noted, a manual differential will be performed. Starr Gran Abs 0.01 0.00 - 0.05 x10(3)/mc L CERNER MILLENNIUM Blood specimen (specimen) 02/12/2014 5:32 AM EDT 02/12/2014 5:58 AM EDT Misty De Guzman MD HEMATOLOGY ORDERABL [facility] * (ABNORMAL) Basic Metabolic Panel (non-fasting) (02/12/2014 5:32 AM EDT) Glucose Lvl 131 60 - 199 mg/dL CERNER MILLENNIUM Comment:Diabetes: >=200 mg/d L plus symptoms BUN 16 10 - 20 mg/dL CERNER MILLENNIUM Creatinine 0.67(L) 0.80 - 1.50 mg/dL CERNER MILLENNIUM Comment: Please note that the pediatric reference intervals supplied above were not validated at [facility]. Results from pediatric patients should be interpreted in conjunction to the patient's age, height and muscle mass. Sodium 140 135 - 145 mmol/L CERNER MILLENNIUM Potassium 3.5 3.5 - 5.0 mmol/L CERNER MILLENNIUM Comment: Please note: ??Patients with WBC >100,000 may have falsely elevated Potassium levels. ??For accurate Potassium quantification in these patients send serum separator tube (gold top) for subsequent determinations. ??Contact the Clinical Chemistry Laboratory if there are any questions. Chloride 103 98 - 107 mmol/L CERNER MILLENNIUM CO2 26 22 - 31 mmol/L CERNER MILLENNIUM Anion Gap 11 5 - 15 mmol/L CERNER MILLENNIUM Calcium 8.2(L) 8.5 - 10.5 mg/dL CERNER MILLENNIUM Estimated GFR >60 >=60 CERNER MILLENNIUM Comment: This estimated GFR (eGFR) value was [...] the following links into your internet browser. http://www.nkdep.nih.gov/lab-evaluation.shtml http://www.kidney.org/professionals/ Blood specimen (specimen) 02/12/2014 5:32 AM EDT 02/12/2014 5:58 AM EDT Narrative Resulting Agency Comment Spec In Lab Misty De Guzman MD CHEMISTRY ORDERABLE S CERWALDO KRAFTIUM * (ABNORMAL) CBC (with Diff) (02/12/2014 5:32 AM EDT) WBC 7.3 4.0 - 10.0 x10(3)/mcL CERNER MILLENNIUM RBC 3.21(L) 4.63 - 6.08 x10(6)/mcL CERNER MILLENNIUM Hemoglobin 9.5(L) 13.7 - 17.5 gm/dL CERNER MILLENNIUM Hematocrit 29.3(L) 40.0 - 51.0 % CERNER MILLENNIUM MCV 91.3 79.0 - 92.0 fL [facility] JEFFREYEN[facility]UM MCH 29.6 25.6 - 32.2 pg [facility] MCHC 32.4 32.0 - 36.5 gm/dL [facility] Platelets 200 145 - 370 x10(3)/mcL [facility] RDWSD 47.9(H) 35.0 - 46.0 fL [facility] RDWCV 14.3 10.9 - 14.4 % [facility] MPV 9.3 9.0 - 12.0 fL [facility] Blood specimen (specimen) 02/12/2014 5:32 AM EDT 02/12/2014 5:58 AM EDT Narrative Resulting Agency Comment Spec In Lab Misty De Guzman MD HEMATOLOGY ORDERABL ES Performing Organization Address [facility] Phone Number [facility] * POCT Glucose (02/12/2014 3:50 AM EDT) POC Glucose 123 60 - 199 mg/dL [facility] Comment: Supplemental ranges: <110 mg/dL before meals <200 mg/dL all other times of the day Blood specimen (specimen) 02/12/2014 3:50 AM EDT 02/12/2014 3:50 AM EDT Misty De Guzman MD POINT OF CARE TEST ORDERABLES Performing Organization Address [facility] Phone Number [facility] * POCT Glucose (02/11/2014 11:26 PM EDT) POC Glucose 178 60 - 199 mg/dL [facility] Comment: Supplemental ranges: <110 mg/dL before meals <200 mg/dL all other times of the day Blood specimen (specimen) 02/11/2014 11:26 PM EDT 02/11/2014 11:26 PM EDT Misty De Guzman MD POINT OF CARE TEST ORDERABLES Performing Organization Address [facility] Phone Number [facility] * POCT Glucose (02/11/2014 7:20 PM EDT) POC Glucose 140 60 - 199 mg/dL [facility] Comment: Supplemental ranges: <110 mg/dL before meals <200 mg/dL all other times of the day Blood specimen (specimen) 02/11/2014 7:20 PM EDT 02/11/2014 7:20 PM EDT Misty De Guzman MD POINT OF CARE TEST ORDERABLES Performing Organization Address City/[facility] Co de Phone Number [facility] * POCT Glucose (02/11/2014 4:15 PM EDT) POC Glucose 149 60 - 199 mg/dL [facility] Comment: Supplemental ranges: <110 mg/dL before meals <200 mg/dL all other times of the day Blood specimen (specimen) 02/11/2014 4:15 PM EDT 02/11/2014 4:15 PM EDT Misty De Guzman MD POINT OF CARE TEST ORDERABLES Performing Organization Address [facility] Co de Phone Number SARTHAKWALDO MURPHY * POCT Glucose (02/11/2014 11:45 AM EDT) POC Glucose 157 60 - 199 mg/dL [facility] Comment: Supplemental ranges: <110 mg/dL before meals <200 mg/dL all other times of the day Blood specimen (specimen) 02/11/2014 11:45 AM EDT 02/11/2014 11:45 AM EDT Misty De Guzman MD POINT OF CARE TEST ORDERABLES Performing Organization Address City/[facility] Co de Phone Number SARTHAKWALDO MURPHY * POCT Glucose (02/11/2014 6:56 AM EDT) POC Glucose 158 60 - 199 mg/dL [facility] Comment: Supplemental ranges: <110 mg/dL before meals <200 mg/dL all other times of the day Blood specimen (specimen) 02/11/2014 6:56 AM EDT 02/11/2014 6:56 AM EDT Misty De Guzman MD POINT OF CARE TEST ORDERABLES CERNER MILLENNIUM * (ABNORMAL) Differential, Automated (02/11/2014 4:46 AM EDT) Neutrophils % 80.0(H) 34.0 - 71.0 % CERNER MILLENNIUM Neutr Abs (ANC) 8.15(H) 1.50 - 6.30 x10(3)/mc L CERNER MILLENNIUM Lymphocytes % 7.6(L) 19.0 - 53.0 % CERNER MILLENNIUM Lymphocytes Abs 0.8(L) 1.0 - 3.6 x10(3)/mc L CERNER MILLENNIUM Monocytes % 9.5 4.0 - 13.0 % CERNER MILLENNIUM Monocyte Abs 1.0 0.2 - 1.0 x10(3)/mc L CERNER MILLENNIUM Eosinophils % 2.6 0.0 - 7.0 % CERNER MILLENNIUM Eosinophils Abs 0.3 0.0 - 0.5 x10(3)/mc L CERNER MILLENNIUM Basophils % 0.2 0.0 - 2.0 % CERNER MILLENNIUM Basophils Abs 0.0 0.0 - 0.2 x10(3)/mc L CERNER MILLENNIUM Immature Gran % 0.10 0.00 - 0.66 % CERNER MILLENNIUM Comment: Immature granulocytes(IG's)percentage and absolute count will include metamyelocytes, myelocytes, and promyelocytes. Blood smears from CBCs yielding IG's will be scanned manually for concordance. If this scan disagrees with the automated IG or if promyelocytes are noted, a manual differential will be performed. Starr Gran Abs 0.01 0.00 - 0.05 x10(3)/mc L CERNER MILLENNIUM Blood specimen (specimen) 02/11/2014 4:46 AM EDT 02/11/2014 5:12 AM EDT Misty De Guzman MD HEMATOLOGY ORDERABL ES Performing Organization Address [facility] de Phone Number CERNER MILLENNIUM * (ABNORMAL) CBC (with Diff) (02/11/2014 4:46 AM EDT) WBC 10.2(H) 4.0 - 10.0 x10(3)/mcL CERNER MILLENNIUM RBC 3.19(L) 4.63 - 6.08 x10(6)/mcL CERNER MILLENNIUM Hemoglobin 9.8(L) 13.7 - 17.5 gm/dL CERNER MILLENNIUM Hematocrit 29.3(L) 40.0 - 51.0 % CERNER MILLENNIUM MCV 91.8 79.0 - 92.0 fL CERNER MILLENNIUM MCH 30.7 25.6 - 32.2 pg CERNER MILLENNIUM MCHC 33.4 32.0 - 36.5 gm/dL CERNER MILLENNIUM Platelets 180 145 - 370 x10(3)/mcL CERNER MILLENNIUM RDWSD 49.1(H) 35.0 - 46.0 fL CERNER MILLENNIUM RDWCV 14.6(H) 10.9 - 14.4 % CERNER MILLENNIUM MPV 9.4 9.0 - 12.0 fL CERNER MILLENNIUM Blood specimen (specimen) 02/11/2014 4:46 AM EDT 02/11/2014 5:12 AM EDT Narrative Resulting Agency Comment Spec In Lab Misty De Guzman MD HEMATOLOGY ORDERABL ES Performing Organization Address [facility]/ZIP Co de Phone Number CERNER MILLENNIUM * (ABNORMAL) Basic Metabolic Panel (non-fasting) (02/11/2014 4:46 AM EDT) Glucose Lvl 152 60 - 199 mg/dL CERNER MILLENNIUM Comment:Diabetes: >=200 mg/d L plus symptoms BUN 17 10 - 20 mg/dL CERNER MILLENNIUM Creatinine 0.90 0.80 - 1.50 mg/dL CERNER MILLENNIUM Comment: Please note that the pediatric reference intervals supplied above were not validated at [facility]. Results from pediatric patients should be interpreted in conjunction to the patient's age, height and muscle mass. Sodium 140 135 - 145 mmol/L CERNER MILLENNIUM Potassium 4.1 3.5 - 5.0 mmol/L CERNER MILLENNIUM Comment: Please note: ??Patients with WBC >100,000 may have falsely elevated Potassium levels. ??For accurate Potassium quantification in these patients send serum separator tube (gold top) for subsequent determinations. ??Contact the Clinical Chemistry Laboratory if there are any questions. Chloride 104 98 - 107 mmol/L CERNER MILLENNIUM CO2 25 22 - 31 mmol/L CERNER MILLENNIUM Anion Gap 11 5 - 15 mmol/L CERNER MILLENNIUM Calcium 8.0(L) 8.5 - 10.5 mg/dL CERNER MILLENNIUM Estimated GFR >60 >=60 CERNER MILLENNIUM Comment: This estimated GFR (eGFR) value was [...] the following links into your internet browser. http://www.nkdep.nih.gov/lab-evaluation.shtml http://www.kidney.org/professionals/ Blood specimen (specimen) 02/11/2014 4:46 AM EDT 02/11/2014 5:12 AM EDT Narrative Resulting Agency Comment Spec In Lab Misty De Guzman MD CHEMISTRY ORDERABLE S DERICK MURPHY * POCT Glucose (02/11/2014 4:35 AM EDT) POC Glucose 151 60 - 199 mg/dL CERNER MILLENNIUM Comment: Supplemental ranges: <110 mg/dL before meals <200 mg/dL all other times of the day Blood specimen (specimen) 02/11/2014 4:35 AM EDT 02/11/2014 4:35 AM EDT Misty De Guzman MD POINT OF CARE TEST ORDERABLES [facility] * POCT Glucose (02/10/2014 11:29 PM EDT) POC Glucose 146 60 - 199 mg/dL [facility] Comment: Supplemental ranges: <110 mg/dL before meals <200 mg/dL all other times of the day Blood specimen (specimen) 02/10/2014 11:29 PM EDT 02/10/2014 11:29 PM EDT Misty De Guzman MD POINT OF CARE TEST ORDERABLES Performing Organization Address [facility] Co de Phone Number [facility] * POCT Glucose (02/10/2014 7:58 PM EDT) POC Glucose 112 60 - 199 mg/dL [facility] Comment: Supplemental ranges: <110 mg/dL before meals <200 mg/dL all other times of the day Blood specimen (specimen) 02/10/2014 7:58 PM EDT 02/10/2014 7:58 PM EDT Misty De Guzman MD POINT OF CARE TEST ORDERABLES Performing Organization Address [facility] de Phone Number [facility] * POCT Glucose (02/10/2014 4:06 PM EDT) POC Glucose 141 60 - 199 mg/dL [facility] Comment: Supplemental ranges: <110 mg/dL before meals <200 mg/dL all other times of the day Blood specimen (specimen) 02/10/2014 4:06 PM EDT 02/10/2014 4:06 PM EDT Misty De Guzman MD POINT OF CARE TEST ORDERABLES Performing Organization Address [facility] Co de Phone Number [facility] * (ABNORMAL) Differential, Automated (02/10/2014 3:50 PM EDT) Neutrophils % 82.5(H) 34.0 - 71.0 % CERNER MILLENNIUM Neutr Abs (ANC) 9.11(H) 1.50 - 6.30 x10(3)/mc L CERNER MILLENNIUM Lymphocytes % 8.9(L) 19.0 - 53.0 % CERNER MILLENNIUM Lymphocytes Abs 1.0 1.0 - 3.6 x10(3)/mc L CERNER MILLENNIUM Monocytes % 7.5 4.0 - 13.0 % CERNER MILLENNIUM Monocyte Abs 0.8 0.2 - 1.0 x10(3)/mc L CERNER MILLENNIUM Eosinophils % 0.7 0.0 - 7.0 % CERNER MILLENNIUM Eosinophils Abs 0.1 0.0 - 0.5 x10(3)/mc L CERNER MILLENNIUM Basophils % 0.1 0.0 - 2.0 % CERNER MILLENNIUM Basophils Abs 0.0 0.0 - 0.2 x10(3)/mc L CERNER MILLENNIUM Immature Gran % 0.30 0.00 - 0.66 % CERNER MILLENNIUM Comment: Immature granulocytes(IG's)percentage and absolute count will include metamyelocytes, myelocytes, and promyelocytes. Blood smears from CBCs yielding IG's will be scanned manually for concordance. If this scan disagrees with the automated IG or if promyelocytes are noted, a manual differential will be performed. Starr Gran Abs 0.03 0.00 - 0.05 x10(3)/mc L CERNER MILLENNIUM Blood specimen (specimen) 02/10/2014 3:50 PM EDT 02/10/2014 3:56 PM EDT Misty De Guzman MD HEMATOLOGY ORDERABL ES CERNER JEFFREYENNIUM * (ABNORMAL) CBC (with Diff) (02/10/2014 3:50 PM EDT) WBC 11.0(H) 4.0 - 10.0 x10(3)/mcL CERNER MILLENNIUM RBC 3.36(L) 4.63 - 6.08 x10(6)/mcL CERNER MILLENNIUM Hemoglobin 10.0(L) 13.7 - 17.5 gm/dL [facility] Hematocrit 30.8(L) 40.0 - 51.0 % [facility] MCV 91.7 79.0 - 92.0 fL [facility] MCH 29.8 25.6 - 32.2 pg [facility] MCHC 32.5 32.0 - 36.5 gm/dL [facility] Platelets 185 145 - 370 x10(3)/mcL [facility] RDWSD 49.1(H) 35.0 - 46.0 fL [facility] RDWCV 14.7(H) 10.9 - 14.4 % [facility] MPV 9.5 9.0 - 12.0 fL [facility] Blood specimen (specimen) 02/10/2014 3:50 PM EDT 02/10/2014 3:56 PM EDT Narrative Resulting Agency Comment Spec In Lab Misty De Guzman MD HEMATOLOGY ORDERABL ES Performing Organization Address [facility] Co de Phone Number [facility] * POCT Glucose (02/10/2014 12:34 PM EDT) POC Glucose 160 60 - 199 mg/dL [facility] Comment: Supplemental ranges: <110 mg/dL before meals <200 mg/dL all other times of the day Blood specimen (specimen) 02/10/2014 12:34 PM EDT 02/10/2014 12:34 PM EDT Misty De Guzman MD POINT OF CARE TEST ORDERABLES Performing Organization Address [facility] Co de Phone Number [facility] * (ABNORMAL) Prothrombin Time (02/10/2014 7:33 AM EDT) PT 17.0(H) 12.0 - 15.0 sec [facility] Comment: [facility] Transfusion Committee Guidelines: INR less than 2.0, PTT less than OR equal to 43.5 seconds, or Fibrinogen greater than or equal to 100 mg/dl indicate adequate procoagulant activity for hemostasis in patients without underlying bleeding disorders. INR 1.3(H) 0.9 - 1.1 CERNER MILLENNIUM Blood specimen (specimen) 02/10/2014 7:33 AM EDT 02/10/2014 7:39 AM EDT Narrative Resulting Agency Comment Spec In Lab Misty De Guzman MD HEMATOLOGY ORDERABL ES Performing Organization Address City/[facility]/ZIP Co de Phone Number CERNER MILLENNIUM * Magnesium (02/10/2014 7:33 AM EDT) Magnesium 0.79 0.69 - 1.07 mmol/L CERNER MILLENNIUM Blood specimen (specimen) 02/10/2014 7:33 AM EDT 02/10/2014 7:39 AM EDT Narrative Resulting Agency Comment Spec In Lab Misty De Guzman MD CHEMISTRY ORDERABLE S Performing Organization Address City/[facility] Co de Phone Number CERNER MILLENNIUM * (ABNORMAL) Hemogram (02/10/2014 7:33 AM EDT) WBC 10.9(H) 4.0 - 10.0 x10(3)/mcL CERNER MILLENNIUM RBC 3.08(L) 4.63 - 6.08 x10(6)/mcL CERNER MILLENNIUM Hemoglobin 9.2(L) 13.7 - 17.5 gm/dL CERNER MILLENNIUM Hematocrit 28.0(L) 40.0 - 51.0 % CERNER MILLENNIUM MCV 90.9 79.0 - 92.0 fL CERNER MILLENNIUM MCH 29.9 25.6 - 32.2 pg CERNER MILLENNIUM MCHC 32.9 32.0 - 36.5 gm/dL CERNER MILLENNIUM Platelets 166 145 - 370 x10(3)/mcL CERNER MILLENNIUM RDWSD 47.6(H) 35.0 - 46.0 fL CERNER MILLENNIUM RDWCV 14.5(H) 10.9 - 14.4 % CERNER MILLENNIUM MPV 9.1 9.0 - 12.0 fL CERNER MILLENNIUM Blood specimen (specimen) 02/10/2014 7:33 AM EDT 02/10/2014 7:39 AM EDT Narrative Resulting Agency Comment Spec In Lab Misty De Guzman MD HEMATOLOGY ORDERABL ES Performing Organization Address [facility] Co de Phone Number DERICK KRAFTIUM * POCT Glucose (02/10/2014 7:25 AM EDT) POC Glucose 131 60 - 199 mg/dL CERNER JEFFREYENNIUM Comment: Supplemental ranges: <110 mg/dL before meals <200 mg/dL all other times of the day Blood specimen (specimen) 02/10/2014 7:25 AM EDT 02/10/2014 7:25 AM EDT Misty De Guzman MD POINT OF CARE TEST ORDERABLES Performing Organization Address [facility] de Phone Number DERICK KRAFTIUM * POCT Glucose (02/10/2014 4:11 AM EDT) POC Glucose 144 60 - 199 mg/dL DERICK MURPHYENNIUM Comment: Supplemental ranges: <110 mg/dL before meals <200 mg/dL all other times of the day Blood specimen (specimen) 02/10/2014 4:11 AM EDT 02/10/2014 4:11 AM EDT Misty De Guzman MD POINT OF CARE TEST ORDERABLES Performing Organization Address [facility] de Phone Number DERICK KRAFTIUM * (ABNORMAL) Differential, Automated (02/10/2014 2:40 AM EDT) Neutrophils % 76.9(H) 34.0 - 71.0 % CERNER MILLENNIUM Neutr Abs (ANC) 8.07(H) 1.50 - 6.30 x10(3)/mc L CERNER MILLENNIUM Lymphocytes % 9.2(L) 19.0 - 53.0 % CERNER MILLENNIUM Lymphocytes Abs 1.0 1.0 - 3.6 x10(3)/mc L CERNER MILLENNIUM Monocytes % 12.2 4.0 - 13.0 % CERNER MILLENNIUM Monocyte Abs 1.3(H) 0.2 - 1.0 x10(3)/mc L CERNER MILLENNIUM Eosinophils % 1.3 0.0 - 7.0 % CERNER MILLENNIUM Eosinophils Abs 0.1 0.0 - 0.5 x10(3)/mc L CERNER MILLENNIUM Basophils % 0.2 0.0 - 2.0 % CERNER MILLENNIUM Basophils Abs 0.0 0.0 - 0.2 x10(3)/mc L CERNER MILLENNIUM Immature Gran % 0.20 0.00 - 0.66 % CERNER MILLENNIUM Comment: Immature granulocytes(IG's)percentage and absolute count will include metamyelocytes, myelocytes, and promyelocytes. Blood smears from CBCs yielding IG's will be scanned manually for concordance. If this scan disagrees with the automated IG or if promyelocytes are noted, a manual differential will be performed. Starr Gran Abs 0.02 0.00 - 0.05 x10(3)/mc L CERNER MILLENNIUM Blood specimen (specimen) 02/10/2014 2:40 AM EDT 02/10/2014 2:55 AM EDT Misty De Guzman MD HEMATOLOGY ORDERABL ES Performing Organization Address [facility] de Phone Number DERICK MURPHY * (ABNORMAL) Prothrombin Time (02/10/2014 2:40 AM EDT) PT 16.4(H) 12.0 - 15.0 sec CERNER MILLENNIUM Comment: [facility] Transfusion Committee Guidelines: INR less than 2.0, PTT less than OR equal to 43.5 seconds, or Fibrinogen greater than or equal to 100 mg/dl indicate adequate procoagulant activity for hemostasis in patients without underlying bleeding disorders. INR 1.3(H) 0.9 - 1.1 CERNER MILLENNIUM Blood specimen (specimen) 02/10/2014 2:40 AM EDT 02/10/2014 2:54 AM EDT Narrative Resulting Agency Comment Spec In Lab Misty De Guzman MD HEMATOLOGY ORDERABL ES Performing Organization Address City/State/[facility] Co de Phone Number CERNER MILLENNIUM * APTT (02/10/2014 2:40 AM EDT) PTT 33 25 - 35 sec CERNER MILLENNIUM Comment: Recommended therapeutic PTT range for full dose unfractionated heparin is 80-114 seconds. Blood specimen (specimen) 02/10/2014 2:40 AM EDT 02/10/2014 2:54 AM EDT Narrative Resulting Agency Comment Spec In Lab Misty De Guzman MD HEMATOLOGY ORDERABL ES Performing Organization Address [facility] de Phone Number DERICK MURPHYENNIUM * (ABNORMAL) CBC (with Diff) (02/10/2014 2:40 AM EDT) WBC 10.5(H) 4.0 - 10.0 x10(3)/mcL CERNER MILLENNIUM RBC 3.44(L) 4.63 - 6.08 x10(6)/mcL CERNER MILLENNIUM Hemoglobin 10.1(L) 13.7 - 17.5 gm/dL CERNER MILLENNIUM Hematocrit 30.8(L) 40.0 - 51.0 % CERNER MILLENNIUM MCV 89.5 79.0 - 92.0 fL CERNER MILLENNIUM MCH 29.4 25.6 - 32.2 pg CERNER MILLENNIUM MCHC 32.8 32.0 - 36.5 gm/dL CERNER MILLENNIUM Platelets 209 145 - 370 x10(3)/mcL CERNER MILLENNIUM RDWSD 48.2(H) 35.0 - 46.0 fL CERNER MILLENNIUM RDWCV 14.7(H) 10.9 - 14.4 % CERNER MILLENNIUM MPV 9.4 9.0 - 12.0 fL CERNER MILLENNIUM Blood specimen (specimen) 02/10/2014 2:40 AM EDT 02/10/2014 2:55 AM EDT Narrative Resulting Agency Comment Spec In Lab Misty De Guzman MD HEMATOLOGY ORDERABL ES Performing Organization Address [facility] Co de Phone Number DEIRCK KRAFTIUM * (ABNORMAL) Basic Metabolic Panel (non-fasting) (02/10/2014 2:40 AM EDT) [facility] Glucose Lvl 142 60 - 199 mg/dL CERNER MILLENNIUM Comment:Diabetes: >=200 mg/d L plus symptoms BUN 26(H) 10 - 20 mg/dL CERNER MILLENNIUM Creatinine 1.57(H) 0.80 - 1.50 mg/dL CERNER MILLENNIUM Comment: result rechecked- u Please note that the pediatric reference intervals supplied above were not validated at [facility]. Results from pediatric patients should be interpreted in conjunction to the patient's age, height and muscle mass. Sodium 140 135 - 145 mmol/L CERNER MILLENNIUM Potassium 3.9 3.5 - 5.0 mmol/L CERNER MILLENNIUM Comment: Please note: ??Patients with WBC >100,000 may have falsely elevated Potassium levels. ??For accurate Potassium quantification in these patients send serum separator tube (gold top) for subsequent determinations. ??Contact the Clinical Chemistry Laboratory if there are any questions. Chloride 103 98 - 107 mmol/L CERNER MILLENNIUM CO2 26 22 - 31 mmol/L CERNER MILLENNIUM Anion Gap 11 5 - 15 mmol/L CERNER MILLENNIUM Calcium 8.1(L) 8.5 - 10.5 mg/dL CERNER MILLENNIUM Estimated GFR 45(L) >=60 CERNER MILLENNIUM Comment: This estimated GFR (eGFR) value was [...] the following links into your internet browser. http://www.nkdep.nih.gov/lab-evaluation.shtml http://www.kidney.org/professionals/ Blood specimen (specimen) 02/10/2014 2:40 AM EDT 02/10/2014 2:54 AM EDT Narrative Resulting Agency Comment Spec In Lab Misty De Guzman MD CHEMISTRY ORDERABLE S [facility] * POCT Glucose (02/09/2014 11:39 PM EDT) POC Glucose 153 60 - 199 mg/dL [facility] Comment: Supplemental ranges: <110 mg/dL before meals <200 mg/dL all other times of the day Blood specimen (specimen) 02/09/2014 11:39 PM EDT 02/09/2014 11:39 PM EDT Misty De Guzman MD POINT OF CARE TEST ORDERABLES Performing Organization Address [facility] de Phone Number [facility] * EKG 12 Lead (02/09/2014 10:11 PM EDT) Ventricular rate 130 BPM MUSE SYSTEM Atrial Rate 86 BPM MUSE SYSTEM QRS Duration 76 ms MUSE SYSTEM Q-T Interval 332 ms MUSE SYSTEM QTC Calculated (Bezet) 488 ms MUSE SYSTEM Calculated R Yoder 47 degrees MUSE SYSTEM Calculated T Yoder 35 degrees MUSE SYSTEM INTERPRETATION Atrial fibrillation with rapid ventricular response Low voltage QRS Abnormal ECG When compared with ECG of 18-NOV-2013 13:19, No significant change was found Confirmed by MD Darío, Andrez ([id number]) on 02/10/2014 11:18:33 PM MUSE SYSTEM 02/09/2014 10:1 1 PM EDT 02/10/2014 11:18 PM EDT Misty De Guzman MD ECG ORDERABLES Performing Organization Address [facility] de Phone Number MUSE SYSTEM * POCT Glucose (02/09/2014 10:03 PM EDT) POC Glucose 115 60 - 199 mg/dL [facility] Comment: Supplemental ranges: <110 mg/dL before meals <200 mg/dL all other times of the day Blood specimen (specimen) 02/09/2014 10:03 PM EDT 02/09/2014 10:03 PM EDT Misty De Guzman MD POINT OF CARE TEST ORDERABLES CERNER MILLENNIUM * (ABNORMAL) Hemogram (02/09/2014 9:00 PM EDT) WBC 12.3(H) 4.0 - 10.0 x10(3)/mcL CERNER MILLENNIUM RBC 3.70(L) 4.63 - 6.08 x10(6)/mcL CERNER MILLENNIUM Hemoglobin 10.9(L) 13.7 - 17.5 gm/dL CERNER MILLENNIUM Hematocrit 33.2(L) 40.0 - 51.0 % CERNER MILLENNIUM MCV 89.7 79.0 - 92.0 fL CERNER MILLENNIUM MCH 29.5 25.6 - 32.2 pg CERNER MILLENNIUM MCHC 32.8 32.0 - 36.5 gm/dL CERNER MILLENNIUM Platelets 204 145 - 370 x10(3)/mcL CERNER MILLENNIUM RDWSD 48.0(H) 35.0 - 46.0 fL CERNER MILLENNIUM RDWCV 14.7(H) 10.9 - 14.4 % CERNER MILLENNIUM MPV 9.3 9.0 - 12.0 fL CERNER MILLENNIUM Blood specimen (specimen) 02/09/2014 9:00 PM EDT 02/09/2014 9:11 PM EDT Narrative Resulting Agency Comment Spec In Lab Misty De Guzman MD HEMATOLOGY ORDERABL ES Performing Organization Address [facility] de Phone Number [email or web address] KRAFTIUM * Creatinine, urine, random (02/09/2014 8:50 PM EDT) U Creatinine 170 mg/dL CERNER MILLENNIUM Urine specimen (specimen) 02/09/2014 8:50 PM EDT 02/09/2014 9:50 PM EDT Narrative Resulting Agency Comment Spec In Lab Misty De Guzman MD URINE ORDERABLES Performing Organization Address [facility] Co de Phone Number CERWALDO MURPHYENNIUM * Electrolytes, urine, random (02/09/2014 8:50 PM EDT) U Sodium 34 mmol/L CERNER MILLENNIUM U Potassium 56 mmol/L CERNER MILLENNIUM U Chloride 22 mmol/L CERNER MILLENNIUM Urine specimen (specimen) 02/09/2014 8:50 PM EDT 02/09/2014 9:50 PM EDT Narrative Resulting Agency Comment Spec In Lab Misty De Guzman MD URINE ORDERABLES CERWALDO MURPHYENNIUM * POCT Glucose (02/09/2014 7:21 PM EDT) [facility] POC Glucose 116 60 - 199 mg/dL CERNER MILLENNIUM Comment: Supplemental ranges: <110 mg/dL before meals <200 mg/dL all other times of the day Blood specimen (specimen) 02/09/2014 7:21 PM EDT 02/09/2014 7:21 PM EDT Misty De Guzman MD POINT OF CARE TEST ORDERABLES CERWALDO MURPHYENNIUM * (ABNORMAL) Differential, Automated (02/09/2014 5:05 PM EDT) Pathologist [facility] Neutrophils % 78.6(H) 34.0 - 71.0 % CERNER MILLENNIUM Neutr Abs (ANC) 11.29(H) 1.50 - 6.30 x10(3)/mc L CERNER MILLENNIUM Lymphocytes % 8.2(L) 19.0 - 53.0 % CERNER MILLENNIUM Lymphocytes Abs 1.2 1.0 - 3.6 x10(3)/mc L CERNER MILLENNIUM Monocytes % 12.7 4.0 - 13.0 % CERNER MILLENNIUM Monocyte Abs 1.8(H) 0.2 - 1.0 x10(3)/mc L CERNER MILLENNIUM Eosinophils % 0.1 0.0 - 7.0 % CERNER MILLENNIUM Eosinophils Abs 0.0 0.0 - 0.5 x10(3)/mc L CERNER MILLENNIUM Basophils % 0.1 0.0 - 2.0 % CERNER MILLENNIUM Basophils Abs 0.0 0.0 - 0.2 x10(3)/mc L CERNER MILLENNIUM Immature Gran % 0.30 0.00 - 0.66 % CERNER MILLENNIUM Comment: Immature granulocytes(IG's)percentage and absolute count will include metamyelocytes, myelocytes, and promyelocytes. Blood smears from CBCs yielding IG's will be scanned manually for concordance. If this scan disagrees with the automated IG or if promyelocytes are noted, a manual differential will be performed. Tsarr Gran Abs 0.04 0.00 - 0.05 x10(3)/mc L CERNER MILLENNIUM Blood specimen (specimen) 02/09/2014 5:05 PM EDT 02/09/2014 5:14 PM EDT Misty De Guzman MD HEMATOLOGY ORDERABL ES Performing Organization Address [facility] Co de Phone Number DERICK KRAFTIUM * Antibody screen (02/09/2014 5:05 PM EDT) Ab Screen Interp Negative CERWALDO KRAFTIUM Expires at [id number] on: [id number] DERICK MURPHYENNIUM Blood specimen (specimen) 02/09/2014 5:05 PM EDT 02/09/2014 5:14 PM EDT Narrative Resulting Agency Comment Spec In Lab Misty De Guzman MD BLOOD BANK LAB ORDNigel ANGUS Performing Organization Address [facility] de Phone Number DERICK MURPHY * ABO/Rh Typing (02/09/2014 5:05 PM EDT) ABORH Type A Pos CERWALDO MURPHYENNIUM Blood specimen (specimen) 02/09/2014 5:05 PM EDT 02/09/2014 5:14 PM EDT Narrative Resulting Agency Comment Spec In Lab Misty De Guzman MD BLOOD BANK LAB ORDNigel GRECO Performing Organization Address [facility] Co de Phone Number DERICK KRAFTIUM * (ABNORMAL) Basic Metabolic Panel (non-fasting) (02/09/2014 5:05 PM EDT) [facility] Glucose Lvl 144 60 - 199 mg/dL CERNER MILLENNIUM Comment:Diabetes: >=200 mg/d L plus symptoms BUN 30(H) 10 - 20 mg/dL CERNER MILLENNIUM Comment:result rechecked- MT F Creatinine 2.96(H) 0.80 - 1.50 mg/dL CERNER MILLENNIUM Comment: result rechecked- MTF Please note that the pediatric reference intervals supplied above were not validated at [facility]. Results from pediatric patients should be interpreted in conjunction to the patient's age, height and muscle mass. Sodium 139 135 - 145 mmol/L CERNER MILLENNIUM Potassium 4.2 3.5 - 5.0 mmol/L CERNER MILLENNIUM Comment: Please note: ??Patients with WBC >100,000 may have falsely elevated Potassium levels. ??For accurate Potassium quantification in these patients send serum separator tube (gold top) for subsequent determinations. ??Contact the Clinical Chemistry Laboratory if there are any questions. Chloride 100 98 - 107 mmol/L CERNER MILLENNIUM CO2 26 22 - 31 mmol/L CERNER MILLENNIUM Anion Gap 13 5 - 15 mmol/L CERNER MILLENNIUM Calcium 8.7 8.5 - 10.5 mg/dL CERNER MILLENNIUM Estimated GFR 22(L) >=60 CERNER MILLENNIUM Comment: This estimated GFR (eGFR) value was [...] the following links into your internet browser. http://www.nkdep.nih.gov/lab-evaluation.shtml http://www.kidney.org/professionals/ Blood specimen (specimen) 02/09/2014 5:05 PM EDT 02/09/2014 5:14 PM EDT Narrative Resulting Agency Comment Spec In Lab Misty De Gumzan MD CHEMISTRY ORDERABLE S CERNER MILLENNIUM * APTT (02/09/2014 5:05 PM EDT) PTT 31 25 - 35 sec CERNER MILLENNIUM Comment: Recommended therapeutic PTT range for full dose unfractionated heparin is 80-114 seconds. Blood specimen (specimen) 02/09/2014 5:05 PM EDT 02/09/2014 5:14 PM EDT Narrative Resulting Agency Comment Spec In Lab Misty De Guzman MD HEMATOLOGY ORDERABL ES Performing Organization Address [facility] Co de Phone Number DERICK KRAFTIUM * (ABNORMAL) Prothrombin Time (02/09/2014 5:05 PM EDT) PT 16.3(H) 12.0 - 15.0 sec CERNER MILLENNIUM Comment: [facility] Transfusion Committee Guidelines: INR less than 2.0, PTT less than OR equal to 43.5 seconds, or Fibrinogen greater than or equal to 100 mg/dl indicate adequate procoagulant activity for hemostasis in patients without underlying bleeding disorders. INR 1.3(H) 0.9 - 1.1 CERNER MILLENNIUM Blood specimen (specimen) 02/09/2014 5:05 PM EDT 02/09/2014 5:14 PM EDT Narrative Resulting Agency Comment Spec In Lab Misty De Guzman MD HEMATOLOGY ORDERABL ES DERICK KRAFTIUM * (ABNORMAL) CBC (with Diff) (02/09/2014 5:05 PM EDT) WBC 14.4(H) 4.0 - 10.0 x10(3)/mcL CERNER MILLENNIUM RBC 3.91(L) 4.63 - 6.08 x10(6)/mcL CERNER MILLENNIUM Hemoglobin 11.4(L) 13.7 - 17.5 gm/dL CERNER MILLENNIUM Hematocrit 35.4(L) 40.0 - 51.0 % CERNER MILLENNIUM MCV 90.5 79.0 - 92.0 fL CERNER MILLENNIUM MCH 29.2 25.6 - 32.2 pg CERNER MILLENNIUM MCHC 32.2 32.0 - 36.5 gm/dL CERNER MILLENNIUM Platelets 236 145 - 370 x10(3)/mcL CERNER MILLENNIUM RDWSD 48.1(H) 35.0 - 46.0 fL CERNER MILLENNIUM RDWCV 14.6(H) 10.9 - 14.4 % CERNER MILLENNIUM MPV 9.7 9.0 - 12.0 fL CERNER MILLENNIUM Blood specimen (specimen) 02/09/2014 5:05 PM EDT 02/09/2014 5:14 PM EDT Narrative Resulting Agency Comment Spec In Lab Misty De Guzman MD HEMATOLOGY ORDERABL ES Performing Organization Address City/[facility]/ZIP Co de Phone Number DERICK MURPHY * POCT Glucose (02/09/2014 5:05 PM EDT) POC Glucose 132 60 - 199 mg/dL DERICK KRAFTIUM Comment: Supplemental ranges: <110 mg/dL before meals <200 mg/dL all other times of the day Blood specimen (specimen) 02/09/2014 5:05 PM EDT 02/09/2014 5:05 PM EDT Misty De Guzman MD POINT OF CARE TEST ORDERABLES Performing Organization Address [facility]/ZIP Co de Phone Number [facility]ICK [facility] * XR Fluoro Upper GI Small Bowel (02/09/2014 3:50 PM EDT) Anatomical Region Laterality Modality N/A Radiographic Sia ging 02/09/2014 3:50 PM EDT Narrative 02/10/2014 12:05 PM EDT Examination UGI W/SMALL BOWEL FOLLOW THROU Clinical History s/p gastric bypass, eval GJ and JJ anastomoses Comparison None Technique Welder Journeyman views of the abdomen. Oral administration of Omnipaque 300 followed by barium. ??Multiple fluoroscopic images as well as overhead views of the abdomen were obtained. ??Total fluoroscopy time: 58 seconds. Findings Fluoroscopic images in LPO and PA projections were obtained under oral administration of Omnipaque 300. ??No evidence of contrast extravasation. Contrast passed from the esophagus into the gastric pouch without any delay. There is a mild impression onto the gastric pouch consistent with the given history of Delroy fundoplication. Contrast passes immediately from the gastric pouch into the jejunal loop. ?? Afterwards barium was administered orally as the higher density of barium allows exclusion of any evidence of a leak with a higher degree of certainty. On the followup KUBs a small amount of retained contrast is present at the distal aspect of the esophagus, which may be located within the distal esophagus or represent contrast penetration into the Delroy wrap. Note is made of moderate dilatation of the proximal small bowel, consistent with the efferent jejunal loop proximal to the anastomosis. The maximal diameter is at least 4.5 cm. On the last set of fluoroscopic images a focal irregular area of contrast is seen, which appears contained, does not distribute and may be intraluminal. However, it appears different than the other bowel loops that show peristalsis. ?? Impression 1. No evidence of leak at the GJ anastomosis. ?? 2. The focal irregular area of retained contrast described above was supposed to be further evaluated at about 5 pm, when the patient was expected to return for an additional abdominal x-ray. While this contrast appears localized and does not distribute, it cannot be determined with certainty if it is intra- or extraluminal. Unfortunately the patient could not return at 5 pm due to interval complications related to an abdominal wall hematoma. ?? 3. Note is made of a moderate dilatation of the efferent Keysha-en-Y limb. Uncertain whether at the end of this exam contrast has passed the level of the JJ anastomosis. The initial findings were discussed with Dr. Smooth Gonzales on 02/09/14 at 4:25 pm. Due to the patient's discomfort in the fluoroscopy suite, the decision was made to follow up with an additional abdominal x-ray at about 5 pm. Unfortunately the patient was unable to return for additional imaging. The final interpretation including the inability to determine with certainty if the irregular focal area of contrast is located intra- or extraluminal were discussed with Dr. Smooth Gonzales on 02/09/14 at 5:15 p.m.. Film and interpretation reviewed by the attending Procedure Note Mireille Reyes MD - 02/10/2014 Examination UGI W/SMALL BOWEL FOLLOW THROU Clinical History s/p gastric bypass, eval GJ and JJ anastomoses Comparison None Technique Welder Journeyman views of the abdomen. Oral administration of Omnipaque 300 followedby barium. Multiple fluoroscopic images as well as overhead views of theabdomen were obtained. Total fluoroscopy time: 58 seconds. Findings Fluoroscopic images in LPO and PA projections were obtained under oral administration of Omnipaque 300. No evidence of contrast extravasation. Contrast passed from the esophagus into the gastric pouch without anydelay. There is a mild impression onto the gastric pouch consistent with thegiven history of Delroy fundoplication. Contrast passes immediately from thegastric pouch into the jejunal loop. Afterwards barium was administered orally as the higher density of barium allows exclusion of any evidence of a leak with a higher degree ofcertainty. On the followup KUBs a small amount of retained contrast is present at the distal aspect of the esophagus, which may be located within the distal esophagus or represent contrast penetration into the Delroy wrap. Note ismade of moderate dilatation of the proximal small bowel, consistent with the efferent jejunal loop proximal to the anastomosis. The maximal diameter isat least 4.5 cm. On the last set of fluoroscopic images a focal irregulararea of contrast is seen, which appears contained, does not distribute and may be intraluminal. However, it appears different than the other bowel loopsthat show peristalsis. Impression 1. No evidence of leak at the GJ anastomosis. 2. The focal irregular area of retained contrast described above wassupposed to be further evaluated at about 5 pm, when the patient was expected toreturn for an additional abdominal x-ray. While this contrast appears localizedand does not distribute, it cannot be determined with certainty if it isintra- or extraluminal. Unfortunately the patient could not return at 5 pm due to interval complications related to an abdominal wall hematoma. 3. Note is made of a moderate dilatation of the efferent Keysha-en-Y limb. Uncertain whether at the end of this exam contrast has passed the level ofthe JJ anastomosis. The initial findings were discussed with Dr. Smooth Gonzales on 02/09/14 at4:25 pm. Due to the patient's discomfort in the fluoroscopy suite, the decisionwas made to follow up with an additional abdominal x-ray at about 5 pm. Unfortunately the patient was unable to return for additional imaging. The final interpretation including the inability to determine with certaintyif the irregular focal area of contrast is located intra- or extraluminal were discussed with Dr. Smooth Gonzales on 02/09/14 at 5:15 p.m.. Film and interpretation reviewed by the attending Homero Gonzales MD IMG FLUORO SANDY GRECO * POCT Glucose (02/09/2014 11:56 AM EDT) POC Glucose 162 60 - 199 mg/dL [facility]ailABRA[facility]USIUM Comment: Supplemental ranges: <110 mg/dL before meals <200 mg/dL all other times of the day Blood specimen (specimen) 02/09/2014 11:56 AM EDT 02/09/2014 11:56 AM EDT Misty De Guzman MD POINT OF CARE TEST ORDERABLES Performing Organization Address [facility] de Phone Number [facility] * POCT Glucose (02/09/2014 7:19 AM EDT) POC Glucose 182 60 - 199 mg/dL [facility] Comment: Supplemental ranges: <110 mg/dL before meals <200 mg/dL all other times of the day Blood specimen (specimen) 02/09/2014 7:19 AM EDT 02/09/2014 7:19 AM EDT Misty De Guzman MD POINT OF CARE TEST ORDERABLES Performing Organization Address [facility] de Phone Number [facility] * POCT Glucose (02/09/2014 4:53 AM EDT) POC Glucose 159 60 - 199 mg/dL [facility] Comment: Supplemental ranges: <110 mg/dL before meals <200 mg/dL all other times of the day Blood specimen (specimen) 02/09/2014 4:53 AM EDT 02/09/2014 4:53 AM EDT Misty De Guzman MD POINT OF CARE TEST ORDERABLES CERNER MILLENNIUM * (ABNORMAL) Differential, Automated (02/09/2014 4:37 AM EDT) Neutrophils % 80.9(H) 34.0 - 71.0 % CERNER MILLENNIUM Neutr Abs (ANC) 10.39(H) 1.50 - 6.30 x10(3)/mc L CERNER MILLENNIUM Lymphocytes % 5.7(L) 19.0 - 53.0 % CERNER MILLENNIUM Lymphocytes Abs 0.7(L) 1.0 - 3.6 x10(3)/mc L CERNER MILLENNIUM Monocytes % 12.9 4.0 - 13.0 % CERNER MILLENNIUM Monocyte Abs 1.7(H) 0.2 - 1.0 x10(3)/mc L CERNER MILLENNIUM Eosinophils % 0.1 0.0 - 7.0 % CERNER MILLENNIUM Eosinophils Abs 0.0 0.0 - 0.5 x10(3)/mc L CERNER MILLENNIUM Basophils % 0.2 0.0 - 2.0 % CERNER MILLENNIUM Basophils Abs 0.0 0.0 - 0.2 x10(3)/mc L CERNER MILLENNIUM Immature Gran % 0.20 0.00 - 0.66 % CERNER MILLENNIUM Comment: Immature granulocytes(IG's)percentage and absolute count will include metamyelocytes, myelocytes, and promyelocytes. Blood smears from CBCs yielding IG's will be scanned manually for concordance. If this scan disagrees with the automated IG or if promyelocytes are noted, a manual differential will be performed. Starr Gran Abs 0.03 0.00 - 0.05 x10(3)/mc L CERNER MILLENNIUM Blood specimen (specimen) 02/09/2014 4:37 AM EDT 02/09/2014 5:07 AM EDT Homero Gonzales MD HEMATOLOGY ORDE ANGUS CERNER MILLENNIUM * Scan, Peripheral Blood (02/09/2014 4:37 AM EDT) Plat Estimate Normal [facility] RBC Morphology Abnormal CERNE R MILLENNIUM Ovalocytes 1-5 /HPF CERNER MILLENNIUM Blood specimen (specimen) 02/09/2014 4:37 AM EDT 02/09/2014 5:07 AM EDT Narrative Resulting Agency Comment Spec In Lab Homero Gonzales MD HEMATOLOGY ORDE RABLES Performing Organization Address City/[facility]/ZIP Co de Phone Number [facility] * Phosphorus (02/09/2014 4:37 AM EDT) Phosphorus 4.5 2.5 - 4.5 mg/dL [facility] Blood specimen (specimen) 02/09/2014 4:37 AM EDT 02/09/2014 5:07 AM EDT Narrative Resulting Agency Comment Spec In Lab Homero Gonzales MD CHEMISTRY ORDER RICCARDO Performing Organization Address City/[facility] Co de Phone Number [facility] * Magnesium (02/09/2014 4:37 AM EDT) Magnesium 0.75 0.69 - 1.07 mmol/L [facility] Blood specimen (specimen) 02/09/2014 4:37 AM EDT 02/09/2014 5:07 AM EDT Narrative Resulting Agency Comment Spec In Lab Homero Gonzales MD CHEMISTRY ORDER RICCARDO Performing Organization Address [facility] Co de Phone Number [facility] * (ABNORMAL) Glucose, fasting (02/09/2014 4:37 AM EDT) Glucose Fasting 176(H) 65 - 99 mg/dL [facility] Comment: ?Fasting* Glucose Interpretive Criteria Normal ?65-99 mg/dL Impaired Fasting glucose ?100-125 mg/dL Consistent with Diabetes Mellitus ? >or= 126 mg/dL *Fasting is defined as no caloric intake for at least 8 hours In the absence of unequivocal hyperglycemia a plasma glucose value of >or= 126 mg/dL should be repeated on a subsequent day. Diagnosis and Classification of Diabetes Mellitus, Position Statement from the [place] [employer]. ??Diabetes Care, Volume 33, Supplement 1, Oct 2009 Blood specimen (specimen) 02/09/2014 4:37 AM EDT 02/09/2014 5:07 AM EDT Narrative Resulting Agency Comment Spec In Lab Homero Gonzales MD CHEMISTRY ORDER RICCARDO Performing Organization Address City/[facility] Co de Phone Number DERICK Endorse * Creatinine (02/09/2014 4:37 AM EDT) [facility] Signature Creatinine 1.13 0.80 - 1.50 mg/dL DERICK MILLELIZABETHIUM Comment: Please note that the pediatric reference intervals supplied above were not validated at [facility]. Results from pediatric patients should be interpreted in conjunction to the patient's age, height and muscle mass. Estimated GFR >60 >=60 [facility]ENTERWALDO [employer] LLCIUM Comment: This estimated GFR (eGFR) value was [...] the following links into your internet browser. http://www.nkdep.nih.gov/lab-evaluation.shtml http://www.kidney.org/professionals/ Blood specimen (specimen) 02/09/2014 4:37 AM EDT 02/09/2014 5:07 AM EDT Narrative Resulting Agency Comment Spec In Lab Homero Gonzales MD CHEMISTRY ORDER RICCARDO Performing Organization Address City/[facility]/ZIP Co de Phone Number DERICK [employer] * BUN (02/09/2014 4:37 AM EDT) BUN 18 10 - 20 mg/dL CERNER MILLENNIUM Blood specimen (specimen) 02/09/2014 4:37 AM EDT 02/09/2014 5:07 AM EDT Narrative Resulting Agency Comment Spec In Lab Homero Gonzales MD CHEMISTRY ORDER RICCARDO Performing Organization Address City/[facility]/ZIP Co de Phone Number CERNER MILLENNIUM * Electrolytes panel (02/09/2014 4:37 AM EDT) Sodium 139 135 - 145 mmol/L CERNER MILLENNIUM Potassium 4.2 3.5 - 5.0 mmol/L CERNER MILLENNIUM Comment: Please note: ??Patients with WBC >100,000 may have falsely elevated Potassium levels. ??For accurate Potassium quantification in these patients send serum separator tube (gold top) for subsequent determinations. ??Contact the Clinical Chemistry Laboratory if there are any questions. Chloride 102 98 - 107 mmol/L CERNER MILLENNIUM CO2 23 22 - 31 mmol/L CERNER MILLENNIUM Anion Gap 14 5 - 15 mmol/L CERNER MILLENNIUM Blood specimen (specimen) 02/09/2014 4:37 AM EDT 02/09/2014 5:07 AM EDT Narrative Resulting Agency Comment Spec In Lab Homero Gonzales MD CHEMISTRY ORDER RICCARDO Performing Organization Address City/[facility]/ZIP Co de Phone Number CERNER JEFFREYENNIUM * (ABNORMAL) CBC (with Diff) (02/09/2014 4:37 AM EDT) WBC 12.8(H) 4.0 - 10.0 x10(3)/mcL CERNER MILLENNIUM RBC 4.31(L) 4.63 - 6.08 x10(6)/mcL CERNER MILLENNIUM Hemoglobin 12.7(L) 13.7 - 17.5 gm/dL CERNER MILLENNIUM Hematocrit 38.6(L) 40.0 - 51.0 % CERNER MILLENNIUM MCV 89.6 79.0 - 92.0 fL CERNER MILLENNIUM MCH 29.5 25.6 - 32.2 pg [facility] MCHC 32.9 32.0 - 36.5 gm/dL [facility]FFREYABRA[facility]ENTRAL [facility]AMPUSIUM Platelets 249 145 - 370 x10(3)/mcL [facility]FFREY[facility]RA[facility]USIUM RDWSD 46.6(H) 35.0 - 46.0 fL [facility] RDWCV 14.2 10.9 - 14.4 % [facility]US[facility]UM MPV 9.9 9.0 - 12.0 fL [facility] Blood specimen (specimen) 02/09/2014 4:37 AM EDT 02/09/2014 5:07 AM EDT Narrative Resulting Agency Comment Spec In Lab Homero Gonzales MD HEMATOLOGY SANDY GRECO Performing Organization Address [facility] Co de Phone Number [facility] * POCT Glucose (02/09/2014 12:26 AM EDT) POC Glucose 165 60 - 199 mg/dL [facility] Comment: Supplemental ranges: <110 mg/dL before meals <200 mg/dL all other times of the day Blood specimen (specimen) 02/09/2014 12:26 AM EDT 02/09/2014 12:26 AM EDT Misty De Guzman MD POINT OF CARE TEST ORDERABLES Performing Organization Address [facility] Co de Phone Number [facility] * POCT Glucose (02/08/2014 7:01 PM EDT) POC Glucose 152 60 - 199 mg/dL [facility] Comment: Supplemental ranges: <110 mg/dL before meals <200 mg/dL all other times of the day Blood specimen (specimen) 02/08/2014 7:01 PM EDT 02/08/2014 7:01 PM EDT Misty De Guzman MD POINT OF CARE TEST ORDERABLES Performing Organization Address [facility] Co de Phone Number [facility] * POCT Glucose (02/08/2014 3:23 PM EDT) POC Glucose 175 60 - 199 mg/dL [facility] MILL[facility]NI[facility] Comment: Supplemental ranges: <110 mg/dL before meals <200 mg/dL all other times of the day Blood specimen (specimen) 02/08/2014 3:23 PM EDT 02/08/2014 3:23 PM EDT Misty De Guzman MD POINT OF CARE TEST ORDERABLES Performing Organization Address [facility] Phone Number [facility] * POCT Glucose (02/08/2014 9:29 AM EDT) POC Glucose 133 60 - 199 mg/dL [facility] MILLENNIUM Comment: Supplemental ranges: <110 mg/dL before meals <200 mg/dL all other times of the day Blood specimen (specimen) 02/08/2014 9:29 AM EDT 02/08/2014 9:29 AM EDT Misty De Guzman MD POINT OF CARE TEST ORDERABLES Performing Organization Address [facility] Phone Number [facility]DO [facility]PHYABRA[facility]USIUM * Prothrombin Time (02/08/2014 8:34 AM EDT) PT 15.0 12.0 - 15.0 sec [facility] MILLENNIUM Comment: [facility] Transfusion Committee Guidelines: INR less than 2.0, PTT less than OR equal to 43.5 seconds, or Fibrinogen greater than or equal to 100 mg/dl indicate adequate procoagulant activity for hemostasis in patients without underlying bleeding disorders. INR 1.1 0.9 - 1.1 [facility] MILLENNIUM Blood specimen (specimen) 02/08/2014 8:34 AM EDT 02/08/2014 8:38 AM EDT Narrative Resulting Agency Comment Spec In Lab Misty De Guzman MD HEMATOLOGY ORDERABL ES Performing Organization Address [facility] Phone Number [facility] JEFFREYKAISER [facility] documented in this encounter Visit Diagnoses Diagnosis Atrial fibrillation documented in this encounter Administered Medications Inactive Administered Medications - up to 3 most recent administrations Medication Order MAR Action Action Date Dose Rate Site barium sulfate (EZPAQUE) oral suspension 150 mL 150 mL, Oral, ONCE, 1 dose, On Sat02/09/14 at 1430, Routine Given 02/09/2014 2:30 PM EDT 150 mLs DILTiazem (CARDIZEM) tablet 30 mg 30 mg, Oral, EVERY 6 HOURS SCHEDULED, First dose on Diamond 02/11/14 at 0745, Until Discontinued, STAT Given 02/11/2014 12:21 PM EDT 30 mg Given 02/11/2014 8:01 AM EDT 30 mg DILTiazem (CARDIZEM) tablet 60 mg 60 mg, Oral, EVERY 6 HOURS SCHEDULED, First dose on Sat02/08/14 at 1800, Until Discontinued, Hold for SBP < 95, Routine Given 02/10/2014 12:23 AM EDT 60 mg Given 02/09/2014 5:23 PM EDT 60 mg Given 02/09/2014 12:42 PM EDT 60 mg DILTiazem (CARDIZEM) tablet 60 mg 60 mg, Oral, EVERY 6 HOURS SCHEDULED, First dose (after last modification) on Diamond 02/11/14 at 1815, Until Discontinued, STAT Given 02/12/2014 11:47 AM EDT 60 mg Given 02/12/2014 6:04 AM EDT 60 mg Given 02/11/2014 11:34 PM EDT 60 mg DILTiazem 100 mg in dextrose 5% 100 mL infusion 0-15 mg/hr (rounded to 0-15 mL/hr), Intravenous, CONTINUOUS, Starting on Sat02/10/14 at 0230, Until Sat02/12/14 at 0659, Infusion: ? ? Titrate to maintain heart rate of <100 ; Call MD for heart less than 60. Initiate infusion at 5 mg/hr and if HR not under 100, increase every 30 minutes by 5 mg/hr to a maximum dose of 15 mg/hr. Can wean to off if rate control improves with PO DILT New Bag 02/12/2014 12:34 AM EDT 5 mg/hr 5 mL/hr Rate/Dose Verify 02/11/2014 7:28 PM EDT 5 mg/hr 5 mL/hr Rate/Dose Change 02/11/2014 7:45 AM EDT 5 mg/hr 5 mL/hr enoxaparin (LOVENOX) injection 40 mg 40 mg, Subcutaneous, ONCE, 1 dose, On Sat02/08/14 at 0945, Day of Surgery (Day of Procedure), Routine Given 02/08/2014 9:45 AM EDT 40 mg Right Lower Quadrant enoxaparin (LOVENOX) injection 40 mg 40 mg, Subcutaneous, EVERY 12 HOURS SCHEDULED (2 times per day), First dose on Sat02/08/14 at 2100, Until Discontinued, Routine Given 02/09/2014 9:29 AM EDT 40 mg Given 02/08/2014 8:39 PM EDT 40 mg HYDROmorphone (DILAUDID) 1 mg/mL [employer] 30 mL Intravenous, [employer] ONLY, Starting on Sat02/08/14 at 1545, Until Diamond 02/11/14 at 0721 Restarted 02/10/2014 1:06 PM EDT New Syringe/Cartridge 02/08/2014 3:34 PM EDT insulin aspart (novoLOG) VIAL injection 1-4 Units 1-4 Units, Subcutaneous, EVERY 4 HOURS SCHEDULED, First dose on Sat02/08/14 at 2000, Until Discontinued, CORRECTION BOLUS Sensitive to insulin [...] no insulin and resume prior schedule. Given 02/12/2014 12:35 PM EDT 1 Units Given 02/11/2014 11:34 PM EDT 2 Units Given 02/11/2014 7:32 PM EDT 1 Units iohexol (OMNIPAQUE) injection 50 mL 50 mL, Oral, ONCE, 1 dose, On Sat02/09/14 at 1430, Routine Given 02/09/2014 2:30 PM EDT 50 mLs lactated ringers 1,000 mL IV bolus Intravenous, ONCE, 1 dose, On Sat02/09/14 at 1715 Given 02/09/2014 5:23 PM EDT lactated ringers 1,000 mL IV bolus at 1,000 mL/hr, Intravenous, ONCE, 1 dose, On Sat02/09/14 at 1930 Given 02/09/2014 8:05 PM EDT 1000 mL/hr lactated ringers infusion 1,000 mL 1,000 mL, at 100 mL/hr, Intravenous, CONTINUOUS, Starting on Sat02/08/14 at 0945, Until Sat02/08/14 at 1700, Day of Surgery (Day of Procedure) New Bag 02/08/2014 9:45 AM EDT 1,000 mLs 100 mL/hr lactated ringers infusion 40 mL/hr, Intravenous, CONTINUOUS, Starting on Sat02/08/14 at 1545, Until Sat02/12/14 at 0658 New Bag 02/12/2014 4:02 AM EDT 40 mL/hr 40 mL/hr New Bag 02/11/2014 5:29 AM EDT 40 mL/hr 40 mL/hr Rate/Dose Change 02/10/2014 3:33 PM EDT 40 mL/hr 40 mL/h r magnesium sulfate 2 g in sterile water 50 mL 2 g, Intravenous, ONCE, 1 dose, On Sat02/10/14 at 0900, Administer over 120 Minutes Given 02/10/2014 8:48 AM EDT 2 g 25 mL/hr metFORMIN (GLUCOPHAGE) tablet 1,000 mg 1,000 mg, Oral, 2 TIMES DAILY WITH MEALS, First dose (after last modification) on Sat02/12/14 at 1045, Until Discontinued, Routine Given 02/12/2014 10:59 AM EDT 1,000 mg metoprolol (LOPRESSOR) injection 2.5 mg 2.5 mg, Intravenous, EVERY 5 MIN PRN, Starting on Sat02/09/14 at 2224, Until Sat02/12/14 at 1450, Elevated Heart Rate, for HR above 110, hold for SBP below 100 Given 02/09/2014 11:10 PM EDT 2.5 mg ondansetron (ZOFRAN) injection 4 mg 4 mg, Intravenous, EVERY 30 MIN PRN, 2 doses, Starting on Sat02/08/14 at 1523, Until Sat02/12/14 at 1450, Nausea, May repeat dose once in 30 minutes if no relief from previous dose., Recovery (Recovery-Hospital Unit) Given 02/08/2014 8:34 PM EDT 4 mg promethazine (PHENERGAN) injection 6.25 mg 6.25 mg, Intravenous, EVERY 6 HOURS PRN, Nausea, Starting on Sat02/08/14 at 1523, Until Sat02/12/14 at 1450, Avoid extravasation Given 02/08/2014 9:56 PM EDT 6.25 mg ramipril (ALTACE) capsule 10 mg 10 mg, Oral, DAILY, First dose on Sat02/09/14 at 0900, Until Discontinued Given 02/09/2014 12:42 PM EDT 10 mg ramipril (ALTACE) capsule 10 mg 10 mg, Oral, DAILY, First dose on Sat02/12/14 at 0900, Until Discontinued Given 02/12/2014 10:56 AM EDT 10 mg sodium chloride 0.9 % flush 5 mL 5 mL, Intravenous, EVERY 12 HOURS, First dose on Sat02/08/14 at 0945, Until Discontinued, Day of Surgery (Day of Procedure), Routine Given by Other 02/08/2014 9:45 AM EDT 5 mLs sodium chloride 0.9 % flush 5 mL 5 mL, Intravenous, 2 TIMES DAILY, First dose on Sat02/08/14 at 2100, Until Discontinued, Routine Given 02/12/2014 8:39 AM EDT 5 mLs Given 02/11/2014 8:18 PM EDT 10 mLs Given 02/11/2014 12:09 PM EDT 5 mLs sodium chloride 0.9% 1,000 mL IV bolus Intravenous, ONCE, 1 dose, On Sat02/10/14 at 0300 Given 02/10/2014 3:05 AM EDT terazosin (HYTRIN) capsule 2 mg 2 mg, Oral, NIGHTLY, First dose on Sat02/09/14 at 2100, Until Discontinued, Routine Given 02/11/2014 8:18 PM EDT 2 mg Given 02/10/2014 9:14 PM EDT 2 mg Given 02/09/2014 10:00 PM EDT 2 mg venlafaxine (EFFEXOR) tablet 37.5 mg 37.5 mg, Oral, 2 TIMES DAILY, First dose (after last modification) on Sat02/09/14 at 2100, Until Discontinued, Routine Given 02/12/2014 8:38 AM EDT 37.5 mg Given 02/11/2014 8:19 PM EDT 37.5 mg Given 02/11/2014 8:00 AM EDT 37.5 mg documented in this encounter Active and Recently Administered Medications Times are shown in EDT. Scheduled Medication Order 02/10/2014 02/11/2014 02/12/2014 acetaminophen (TYLENOL) 650 mg/20.3 mL oral liquid 650 mg 650 mg, Oral, EVERY 4 HOURS, First dose on Diamond 02/11/14 at 0745, Until Discontinued, Maximum dose of acetaminophen is 4,000 mg from all sources in 24 hours., Routine 0745 (Not Given - Provider: Demi Jung RN - Reason: Patient/family refused)1145 (Not Given - Provider: Demi Jung RN - Reason: Patient/family refused)1545 (Not Given - Provider: Demi Jung RN - Reason: Patient/family refused)1931 (Not Given - Provider: Bari Duckworth RN - Reason: Patient/family refused)2332 (Not Given - Provider: Bari Duckworth RN - Reason: Patient/family refused) 0317 (Not Given - Provider: Bari Duckworth RN - Reason: Patient/family refused)0745 (Not Given - Provider: Ora Vela RN - Reason: Patient/family refused)1145 (Not Given - Provider: Ora Vela RN - Reason: Patient/family refused) DILTiazem (CARDIZEM) tablet 30 mg (CANCELED) 30 mg, Oral, EVERY 6 HOURS SCHEDULED, First dose on Diamond 02/11/14 at 0745, Until Discontinued, STAT 0801 (Given - Provider: Demi Jung RN)1221 (Given - Provider: Demi Jung RN) DILTiazem (CARDIZEM) tablet 60 mg (CANCELED) 60 mg, Oral, EVERY 6 HOURS SCHEDULED, First dose on 02/08/14 at 1800, Until Discontinued, Hold for SBP < 95, Routine 0023 (Given - Provider: Mikayla Lincoln RN) DILTiazem (CARDIZEM) tablet 60 mg 60 mg, Oral, EVERY 6 HOURS SCHEDULED, First dose (after last modification) on Diamond 02/11/14 at 1815, Until Discontinued, STAT 1814 (Given - Provider: Demi Jung RN)2334 (Given - Provider: Bari Duckworth RN) 0604 (Given - Provider: Bari Duckworth RN)1147 (Given - Provider: Ora Vela, FRACISCO) insulin aspart (novoLOG) VIAL injection 1-4 Units (CANCELED) 1-4 Units, Subcutaneous, EVERY 4 HOURS SCHEDULED, First dose on Sat02/08/14 at 2000, Until Discontinued, CORRECTION BOLUS Sensitive to insulin [...] give no insulin and resume prior schedule. 0022 (Given - Provider: Mikayla Lincoln RN)0426 (Given - Provider: Mikayla Lincoln RN)0740 (Not Given - Provider: Tierra Frost RN - Reason: Order parameters not met)0931 (MAR Hold - Provider: Admin Adt - Reason: Transfer to a Procedural area)1200 (Automatically Held - Provider: Admin Adt)1233 (MAR Unhold - Provider: Meliton Mcpherson RN)1613 (Given - Provider: Tierra Frost RN)2000 (Not Given - Provider: Mikayla Lincoln RN - Reason: Order parameters not met)2347 (Given - Provider: Mikayla Lincoln RN) 0438 (Given - Provider: Mikayla Lincoln RN)0802 (Given - Provider: Demi Jung RN)1209 (Given - Provider: Demi Jung RN)1624 (Given - Provider: Demi Jung RN)1932 (Given - Provider: Bari Duckworth, RN)2334 (Given - Provider: Bari Duckworth, RN) 0352 (Not Given - Provider: Bari Duckworth, RN - Reason: Order parameters not met)0800 (Not Given - Provider: Ora Vela, FRACISCO - Reason: Order parameters not met)1235 (Given - Provider: Ora Vela, FRACISCO) magnesium sulfate 2 g in sterile water 50 mL (COMPLETED) 2 g, Intravenous, ONCE, 1 dose, On Sat02/10/14 at 0900, Administer over 120 Minutes 0848 (Given - Provider: Tierra Frost RN) metFORMIN (GLUCOPHAGE) tablet 1,000 mg (CANCELED) 1,000 mg, Oral, 2 TIMES DAILY WITH MEALS, First dose (after last modification) on Sat02/12/14 at 1045, Until Discontinued, Routine 1059 (Given - Provider: Ora Vela, FRACISCO) ramipril (ALTACE) capsule 10 mg (CANCELED) 10 mg, Oral, DAILY, First dose on Sat02/12/14 at 0900, Until Discontinued 1056 (Given - Provider: Ora Vela RN) sodium chloride 0.9 % flush 5 mL (CANCELED) 5 mL, Intravenous, 2 TIMES DAILY, First dose on Sat02/08/14 at 2100, Until Discontinued, Routine 0849 (Given - Provider: Tierra Frost RN)0931 (DEC Hold - Provider: Admin Adt - Reason: Transfer to a Procedural area)1401 (DEC Unhold - Provider: Admin Adt)2117 (Given - Provider: Mikayla Lincoln RN) 1209 (Given - Provider: Demi Jung RN)2017 (Given - Provider: Bari Duckworth, FRACISCO) 0839 (Given - Provider: Ora Vela, FRACISCO) sodium chloride 0.9% 1,000 mL IV bolus (COMPLETED) Intravenous, ONCE, 1 dose, On Sat02/10/14 at 0300 0305 (Given - Provider: Mikayla Lincoln, FRACISCO) terazosin (HYTRIN) capsule 2 mg (CANCELED) 2 mg, Oral, NIGHTLY, First dose on Sat02/09/14 at 2100, Until Discontinued, Routine 0931 (DEC Hold - Provider: Admin Adt - Reason: Transfer to a Procedural area)1401 (MAR Unhold - Provider: Admin Adt)2113 (Given - Provider: Mikayla Lincoln, FRACISCO) 2017 (Given - Provider: Bari Duckworth, RN) venlafaxine (EFFEXOR) tablet 37.5 mg 37.5 mg, Oral, 2 TIMES DAILY, First dose (after last modification) on Sat02/09/14 at 2100, Until Discontinued, Routine 0900 (Not Given - Provider: Tierra Frost RN - Reason: NPO)0931 (DEC Hold - Provider: Admin Adt - Reason: Transfer to a Procedural area)1401 (MAR Unhold - Provider: Admin Adt)2114 (Given - Provider: Mikayla Lincoln, FRACISCO) 0800 (Given - Provider: Demi Jung, RN)2019 (Given - Provider: Bari Duckworth, RN) 0838 (Given - Provider: Ora Vela, FRACISCO) Continuous Medication Order 02/10/2014 02/11/2014 02/12/2014 DILTiazem 100 mg in dextrose 5% 100 mL infusion (CANCELED) 0-15 mg/hr (rounded to 0-15 mL/hr), Intravenous, CONTINUOUS, Starting on 02/10/14 at 0230, Until Sat02/12/14 at 0659, Infusion: ? ? Titrate to maintain heart rate of <100 ; Call MD for heart less than 60. Initiate infusion at 5 mg/hr and if HR not under 100, increase every 30 minutes by 5 mg/hr to a maximum dose of 15 mg/hr. Can wean to off if rate control improves with PO DILT 0306 (New Bag - Provider: Mikayla Lincoln RN)0349 (Rate/Dose Change - Provider: Mikayla Lincoln RN)0427 (Rate/Dose Change - Provider: Mikayla Lincoln, FRACISCO)0739 (Rate/Dose Change - Provider: Tierra Frost RN)0931 (MAR Hold - Provider: Admin Adt - Reason: Transfer to a Procedural area)1233 (MAR Unhold - Provider: Meliton Mcpherson, RN)1257 (Rate/Dose Verify - Provider: Meliton Mcpherson, RN)2141 (New Bag - Provider: Mikayla Lincoln RN) 0439 (Rate/Dose Verify - Provider: Mikayla Lincoln RN)0638 (New Bag - Provider: Mary Hou, FRACISCO)0745 (Rate/Dose Change - Provider: Demi Jung, FRACISCO)1928 (Rate/Dose Verify - Provider: Bari Duckworth, RN) 0034 (New Bag - Provider: Bari Duckworth, RN)0633 (Stopped - Provider: Bari Duckworth, RN) HYDROmorphone (DILAUDID) 1 mg/mL [employer] 30 mL (CANCELED) Intravenous, [employer] ONLY, Starting on 02/08/14 at 1545, Until Diamond 02/11/14 at 0721 1306 (Restarted - Provider: Meliton Mcpherson, RN) lactated ringers infusion (CANCELED) 40 mL/hr, Intravenous, CONTINUOUS, Starting on 02/08/14 at 1545, Until Sat02/12/14 at 0658 0150 (New Bag - Provider: Mikayla Lincoln, RN)0931 (MAR Hold - Provider: Admin Adt - Reason: Transfer to a Procedural area)1234 (MAR Unhold - Provider: Meliton Mcpherson, RN)1305 (New Bag - Provider: Meliton Mcpherson, RN)1533 (Rate/Dose Change - Provider: Tierra Frost RN) 0529 (New Bag - Provider: Mikayla Lincoln, RN) 0402 (New Bag - Provider: Bari Duckworth RN) PRN Medication Order 02/10/2014 02/11/2014 02/12/2014 oxyCODONE (ROXICODONE) 5 mg/5 mL solution 5-10 mg 5-10 mg, Oral, EVERY 4 HOURS PRN, Starting on Diamond 02/11/14 at 0720, Until Sat02/12/14 at 1450, Pain, Routine thrombn (Hum Plas)-Fib-Apro-Ca (TISSEEL VHSD) 10 mL topical syringe (CANCELED) ONCE PRN, Starting on 02/10/14 at 1126, Until Sat02/12/14 at 1450, Intra-Operative (Intra-Procedure), Routine 1126 (Given - Provider: Misty De Guzman MD) documented in this encounter Care Teams Senior Buyer Relationship Specialty Start Date End Date Manolo Castro MD [address] [place] [address] PCP - General 05/14/12 04/21/17 documented as of this encounter
--- OUTSIDE RECORDS SUMMARY | 2024-04-27 14:55 | XMS_ITS | Encounter Summary ---
Author Organization [facility] [place] [address] Care Team Providers Care Cable Assembler And Swager Name Role Phone Manolo Castro MD Primary Care Provider [phone] Encounter Details Date Type Department Care Team (Late st Contact Info) Description 02/10/2014 9:44 AM EDT Anesthesia [place] [address] Blaise Almonte MD [facility] [place] [address] Anesthesia Record Procedure Summary Procedure Name Responsible Anesthesiologist Anesthesia Start Time Anesthesia Stop Time LAPAROSCOPY, DIAGNOSTIC, ABDOMEN (WRVU 5.14) (Abdomen) Blaise Almonte MD 02/10/14 0944 02/10/14 1244 Events Date Time Event Comment 02/10/2014 0941 0944 Start 0947 AN Verify 0947 An Start Data 0955 An Induction 0957 An Intubation 0958 Quick Note No OGT as per s urgeon 1007 Anesthesia Ready 1024 Procedure Start 1121 Break/Relief In 1136 Break/Relief Out 1151 Break/Relief In .me 1218 Break/Relief Out 1224 Extubation/LMA Out 1224 an stop data 1243 Quick Note Smooth extubati on awake alert no reports of pain or nausea at this time, cardizem gtt running, report given to harness preparer. 1244 Stop Meds Name Total fentaNYL 150 mcg lidocaine IV 60 mg propofol 180 mg Rocuronium 50 mg PHENYLephrine 320 mcg ondansetron 4 mg Neostigmine 3 mg Glycopyrrolate 0.6 mg succinylcholine 100 mg DILTiazem 100 mg in dextrose 5% 100 mL i nfusion 29.83 mg ceFAZolin 2 g esmolol 10 mg lactated ringers 1,000 mL sodium chloride 0.9% 500 mL * Agents Name O2 Air Sevoflurane (et) Desflurane (et) * Blood No blood administrations on file. Lines, Drains, and Airways Type Details Placement Removal (RETIRED) Peripheral IV Line - Single Lumen 02/08/14; 0932; metacarpal vein (top of hand), left; [id number] catheter system; 18 gauge, 1 in length; Yenifer Abernathy RN; intradermal injection, tolerated well, appears comfortable; 0; metacarpal vein (top of hand), left; 02/12/14; 1200 02/08/14 0932 by Annabella Alonso RN 02/12/14 1200 by Ora Vela RN Incision 02/08/14; 1030; abdo men; laparoscopic punctures (specify) (trocar sites x 6); 06/04/22 (LDA cleanup utility RA#[id number]); 1715 (LDA cleanup utility RA#[id number]) 02/08/14 1030 by Paulette Chawla RN 06/04/22 1715 by Kavitha Mcgee Urethral Catheter 02/09/14; 1800; indwelling single lumen catheter; inserted at this facility; drainage bag to dependent drainage; 02/11/14; 0941 02/09/14 1800 by Mary Hou RN 02/11/14 0941 by Charity Crisostomo LNA Incision 02/10/14; (stab incision); abdomen; 06/04/22 (LDA cleanup utility RA#[id number]); 1715 (LDA cleanup utility RA#[id number]) 02/10/14 0000 by Velma Chilel RN 06/04/22 1715 by Kavitha Mcgee Drain/Device Site 02/10/14; (19 yulia drain); abdomen; 02/12/14 02/10/14 0000 by Velma Chilel RN 02/12/14 0000 by Ora Vela RN (RETIRED) Peripheral IV Line - Single Lumen 02/10/14; 0235; cephalic vein (lateral side of arm), right; swwq-usd-jhphuk catheter system; 22 gauge, 1 in length; intradermal injection, tolerated well, appears comfortable; 02/12/14 02/10/14 0235 by Nereyda Vann RN 02/12/14 0000 by Ora Vela RN ETT Mask Ventilation: Adjunct (2); ETT Type: Cuffed; ETT Size: 7.5 mm; Indirect: Video; Notes: Asleep, Pre-O2, Cricoid Pressure, Stylette; Attempts: 1; Laryngoscopy Grade: 1; ETT Placement Verified By: Auscultation, Capnometry, Visual; Secured at Teeth: 22 cm; Inserted by: Trav; Removal Date: 02/10/14; Removal Time: 1224 02/10/14 1024 by 02/10/14 1224 by Cady Ravi CRNA documented in this encounter Social History [...] OR Notes * Anesthesia Postprocedure Evaluation - Blaise Almonte MD - 02/10/2014 1:15 PM EDT Patient: Eugene Rueda Procedure(s) Performed: Procedure(s): LAPAROSCOPY, DIAGNOSTIC, ABDOMEN Actual Anesthetic: general Patient location: PACU Post-op pain: Adequate analgesia Post-op nausea: no nausea or vomiting Last Vitals: Filed Vitals: 02/10/14 1300 BP: 118/75 Pulse: 92 Temp: Resp: 20 Post-op cardiovascular and respiratory status: is stable Level of consciousness: awake, alert and oriented Complications: no apparent complications and tolerated the procedure well Fluid Status: normal * Anesthesia Preprocedure Evaluation - Blaise Almonte MD - 02/10/2014 8:43 AM EDT Pre-Anesthesia Evaluation for: Eugene Rueda a 63 y.o. male. Procedure(s): LAPAROSCOPY, DIAGNOSTIC, ABDOMEN Patient Active Problem List Diagnosis ??? Obesity ??? Decreased hearing, wears hearing aid right ear ??? Hyperlipidemia ??? Chronic anticoagulation ??? History of renal stone ~ ??? CARLOS A (obstructive sleep apnea) ??? Type 2 diabetes mellitus ??? GERD (gastroesophageal reflux disease) ??? Varicose veins ??? Carpal tunnel syndrome ??? Asbestosis ??? Pterygium ??? Fatigue ??? Depression ??? Hip arthritis ??? S/P knee replacement ??? HTN (hypertension) ??? Atrial fibrillation ??? PVD (peripheral vascular disease) ??? DM (diabetes mellitus) Past Medical History Diagnosis Date ??? Blood disorder ??? Circulatory disease ??? Diabetes Past Surgical History Procedure Date ??? Cholecystectomy ??? Vasectomy ??? Tonsillectomy ??? Total knee arthroplasty bilateral ??? Upper gi endoscopy, biopsy 12/11/2013 UPPER GASTROINTESTINAL ENDOSCOPY,WITH BIOPSY SINGLE OR MULTIPLE performed by Walyl [facility]feiffer MDat [facility] END[facility]COPY ??? Upper gi endoscopy, diagnostic 12/25/2013 EGD, UPPER GI ENDOSCOPY performed by Wally Pfeiffer MD at [facility] ENDOSCOPY ??? Lap, esophagus, other proc 02/08/2014 LAPAROSCOPIC REVISION OF DELROY FUNDOPLASTY performed by Wally Pfeiffer MD at [facility] OR ??? Lap gastric bypass/monica-en-y 02/08/2014 @LAPAROSCOPIC GASTROPLASTY, performed by Wally Pfeiffer MD at [facility] OR ??? Upper gi endoscopy, diagnostic 02/08/2014 ENDOSCOPY, UPPER GI, DIAGNOSTIC, WITH OR WITHOUT SPECIMENS performed by Wally Pfeiffer MD at [facility] MAIN OR History Substance Use Topics ??? Smoking status: Never Smoker ??? Smokeless tobacco: Never Used ??? Alcohol Use: No Comment: 4x year History Drug Use No No Known Allergies Medications: MAR and/or home medications have been reviewed. Physical Exam: There were no vitals filed for this visit. There is no height or weight on file to calculate BMI. Airway Assessment: Mallampati: III TM distance: >3 FB Neck ROM: full Cardiovascular Assessment: Pulmonary Assessment: Dental Assessment: - normal exam Mis Assessment: IV access: Peripheral line Other exam findings: Anesthesia in past without issue. Recent cardiac eval and echo reviewed. Per patient BP and DM under control. Uses CPAP. Anesthesia Plan: ASA 3 general, with a(n) intravenous induction Return to OR for bleeding A fib with rapid ventricular response on diltiazem drip Hgb decrease from 12+ to 9. Specimen active in blood bank. Prerenal azotemia with poor U/O and creatinine bump, improving with fluid bolus Plan GA/ET Std monitors, +/- second IV. Region - Other Informed Consent: Anesthetic plan and risks discussed with patient. Use of blood products discussed with patient whom consented to blood products. Plan discussed with SOFTWARE PROJECT ENGINEER. [employer]. Assessment: documented in this encounter Plan of Treatment Upcoming Encounters Date Type Department Care Team (Late st Contact Info) Description 05/15/2024 10:00 AM EDT [place] [id number] Catrachito Mehta MD [facility] [place] [address] documented as of this encounter Visit Diagnoses Not on filedocumented in this encounter Administered Medications Inactive Administered Medications - up to 3 most recent administrations Medication Order MAR Action Action Date Dose Rate Site ceFAZolin (ANCEF) 1g in dextrose 5% 50mL PRN, Starting on Sat02/10/14 at 1015, Until Sat02/10/14 at 1244, Administer over 30 Minutes, Anesthesia Intra-op Given 02/10/2014 10:15 AM EDT 2 g DILTiazem 100 mg in dextrose 5% 100 mL infusion 100 mg, CONTINUOUS PRN, Starting on Sat02/10/14 at 0945, Until Sat02/10/14 at 1244, Anesthesia Intra-op Rate/Dose Change 02/10/2014 12:04 PM EDT 10 mg/hr 10 mL/hr New Bag 02/10/2014 9:45 AM EDT 10 mg/hr 10 mL/hr esmolol (BREVIBLOC) injection PRN, Starting on Sat02/10/14 at 1228, Until Sat02/10/14 at 1244, Anesthesia Intra-op, Routine Given 02/10/2014 12:28 PM EDT 10 mg fentaNYL 50mcg/mL injection PRN, Starting on Sat02/10/14 at 0955, Until Sat02/10/14 at 1244, Pain, Anesthesia Intra-op, Routine Given 02/10/2014 10:39 AM EDT 50 mcg Given 02/10/2014 10:30 AM EDT 50 mcg Given 02/10/2014 9:55 AM EDT 50 mcg glycopyrrolate (ROBINUL) injection PRN, Starting on Sat02/10/14 at 1202, Until Sat02/10/14 at 1244, Anesthesia Intra-op, Routine Given 02/10/2014 12:02 PM EDT 0.6 mg lactated ringers infusion CONTINUOUS PRN, Starting on Sat02/10/14 at 0949, Until Sat02/10/14 at 1244, Anesthesia Intra-op New Bag 02/10/2014 9:49 AM EDT mL lidocaine (PF) (XYLOCAINE) 100 mg/5 mL (2 %) injection PRN, Starting on Sat02/10/14 at 0955, Until Sat02/10/14 at 1244, Anesthesia Intra-op, Routine Given 02/10/2014 9:55 AM EDT 60 mg neostigmine (PROSTIGMINE) injection PRN, Starting on Sat02/10/14 at 1202, Until Sat02/10/14 at 1244, Anesthesia Intra-op, Routine Given 02/10/2014 12:02 PM EDT 3 mg ondansetron (ZOFRAN) injection PRN, Starting on Sat02/10/14 at 1158, Until Sat02/10/14 at 1244, Nausea, Anesthesia Intra-op, Routine Given 02/10/2014 11:58 AM EDT 4 mg PHENYLephrine HCl in NS (PF) (ML-SYNEPHRINE) 0.8 mg/10 mL (80 mcg/mL) injection Syrg PRN, Starting on Sat02/10/14 at 1013, Until Sat02/10/14 at 1244, Anesthesia Intra-op, Routine Given 02/10/2014 11:35 AM EDT 80 mcg Given 02/10/2014 11:06 AM EDT 80 mcg Given 02/10/2014 10:13 AM EDT 160 mcg propofol (DIPRIVAN) 10 mg/mL bolus injection (Anesthesia) PRN, Starting on Sat02/10/14 at 0955, Until Sat02/10/14 at 1244, Anesthesia Intra-op Given 02/10/2014 9:55 AM EDT 180 mg rocuronium (ZEMURON) injection PRN, Starting on Sat02/10/14 at 1004, Until Sat02/10/14 at 1244, Anesthesia Intra-op, Routine Given 02/10/2014 10:38 AM EDT 20 mg Given 02/10/2014 10:04 AM EDT 30 mg sodium chloride 0.9% infusion CONTINUOUS PRN, Starting on Sat02/10/14 at 0948, Until Sat02/10/14 at 1244, Anesthesia Intra-op New Bag 02/10/2014 9:48 AM EDT mL succinylcholine (ANECTINE) injection PRN, Starting on Sat02/10/14 at 0955, Until Sat02/10/14 at 1244, Anesthesia Intra-op, Routine Given 02/10/2014 9:55 AM EDT 100 mg documented in this encounter Care Teams Cable Assembler And Swager Relationship Specialty Start Date End Date Manolo Castro MD [address] [place] [address] PCP - General 05/14/12 04/21/17 documented as of this encounter
--- OUTSIDE RECORDS SUMMARY | 2024-04-27 14:55 | XMS_ITS | Encounter Summary ---
Author Organization Formerly [facility] [place] [address] Care Team Providers Care Corporate Events Director Name Role Phone Manolo Castro MD Primary Care Provider [phone] Encounter Details Date Type Department Care Team (Late st Contact Info) Description 02/08/2014 10:28 AM EDT - 02/08/2014 3:56 PM EDT Surgery [place] [address] Misty De Guzman MD [facility] [place] [address] LAPAROSCOPIC REVISION OF DELROY FUNDOPLASTY (WRVU 48.75) Social History Tobacco Use Types Packs/Day Years [...] EDT BARIATRIC SURGERY DISCHARGE INFORMATION CONTACT INFORMATION: [phone] Surgeons: Dr. Martinez, Margarette Hanna and [place] [phone] Converter Supervisor: [phone] (Saturday through Saturday, 8:00 AM -5:00 PM) Dietitian: [phone] Non-business hours: [phone], ask for general surgeon information broker FOR EMERGENCIES: CALL 911 (trouble breathing, chest [...] you had open gastric bypass and have dino: [place] should be removed 10 - 12 days after surgery. This can be done at [facility] or via Primary Care Provider [...] 200 on more than 3 rechecks, [facility] or diabetic specialist for specific [...] Follow up with primary care doctor or auto inspection specialist in 1-2 weeks. Bring meter to [...] Provider Department Center 03/02/2014 3:00 PM Bariatric, Research Assistant Member [facility] 03/02/2014 3:40 PM Misty [...] 10:09 AM EDT Care Management/ CRC Pager# [phone]/ Assessment and Initial discharge planning S: I am feeling pretty good today. I had some jello and some apple juice. That is a good thing! My son Momo will be helping me when I am able to go home. O: Met with patient this morning. Notes reviewed. Patient lives in [place]. Patient has Cigna, National OOS Blue PPO, and Medicare (part A only) insurance. No [facility]. Patient is POD# 3 laparoscopic [...] q4hr prn. 99% on 2liters oxygen via deputy sheriff chief this morning. A: Patient progressing post-op. Patient [...] fluid Skin: warm, dry Recent Labs Basename 02/11/1444502/10/14 1550 02/10/14 0733 02/10/14 0240 02/09/14 2100 [...] 33 -- 31 -- Recent Labs Basename 02/11/14 0446 02/10/14 0733 02/10/14 0240 02/09/14 1705 02/09/14 0437 [...] is stable and Pain well controlled DC MANAGER OF CUSTOMER BILLING and start Oxycodone liquid for pain controll [...] 31 -- -- Recent Labs Basename 02/10/14 0733 02/10/14 0240 02/09/14 1705 02/09/14 0437 NA -- [...] %] 2L GTT: Dilt @ 15 02/09 0701 - 02/10 07 In: 4837.8 [P.O.:50; I.V.:4787.8] Out: 835 [Urine:835] [...] Office of Care Management (OCM) / Clinical Bullet Slugs Inspector (CRC)/ Initial Assessment Discussed patient with Provider Team and in multidisciplinary discharge-planning rounds. Reviewed record; patient off unit for procedure. Introduced/reviewed CRC role and services accepted. 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 Blood disorder ??? Circulatory disease ??? 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 PRIMARY CARE PHYSICIAN: MANOLO CASTRO MD [address] / [facility] [address] POTENTIAL DISCHARGE NEEDS: none anticipated PATIENT/FAMILY EDUCATION NEEDS:per discharge summary ANTICIPATED BARRIERS TO DISCHARGE:none TRANSPORTATION @ D/C: PLAN: CRC will continue to monitor progress, follow for continuity of care and assist with discharge planning while hospitalized KENYATTA SANDS RN CRC for Melba Elmore RN CRC pager [phone] . * Ricky Trotter MD - 02/09/2014 [...] 93 % SpO2: [93 %-100 %] 02/08 07 - 02/09 0700 In: 4667 [I.V.:4667] Out: [...] pain and nausea at this time. Using MANAGER OF CUSTOMER BILLING appropriately, patient very drowsy but easily woken. Lap sites CDI. HR irreg. Will continue to monitor. * Radha Sanchez RN - 02/08/2014 4:49 PM EDT Report to Claire 4w. Pt sleepy, easily arousable. States he is comfortable. 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 documented in this encounter H&P [...] has currently had full participation in the [facility] [place] and meets [...] majority of our 40 minutes today in [id number] conversation regarding various treatment options for obesity [...] 02/13/2014 12:56 PM EDTAssociated Order(s): SCAN DOC: CALL WORKER PERSON documented in this encounter Miscellaneous Notes * [...] part of your care. Bariatric Surgery - [phone]: Follow-up with Dr. De Guzman PCP: MANOLO CASTRO MD, . Please follow-up with your PCP in 1-2 weeks or sooner as needed. Scheduled Appointments: The following appointments have been scheduled on your behalf: Future Appointments and Orders Future Appointments: Provider: Department: Dept Phone: Center: 03/02/2014 3:00 PM Research Assistant Member Bariatric General Surgery [phone] [facility] 03/02/2014 3:40 PM Misty De Guzman MD General Surgery [phone] [facility] Outpatient Services/Studies: No discharge procedures on file. Instructions Given to Patient at Discharge: Provider Instructions BARIATRIC SURGERY DISCHARGE INFORMATION CONTACT INFORMATION: [phone] Surgeons: Cyndi Lujan Laycock and [facility] [phone] Converter Supervisor: [phone] (Saturday through Saturday, 8:00 AM -5:00 PM) Dietitian: [phone] Non-business hours: [phone], ask for general surgeon information broker FOR EMERGENCIES: CALL 911 (trouble breathing, chest [...] you had open gastric bypass and have dino: [place] should be removed 10 - 12 days after surgery. This can be done at [facility] or via Primary Care Provider [...] 200 on more than 3 rechecks, [facility] or diabetic specialist for specific [...] Follow up with primary care doctor or auto inspection specialist in 1-2 weeks. Bring meter to [...] Provider Department Center 03/02/2014 3:00 PM Bariatric, Research Assistant Member Le[facility] 03/02/2014 3:40 PM Misty De Guzman MD [facility] General Instructions None Future Appointments and Orders Future Appointments: Provider: Department: Dept Phone: Center: 03/02/2014 3:00 PM Research Assistant Member Bariatric General Surgery [phone] [facility] 03/02/2014 3:40 PM Misty De Guzman MD General Surgery [phone] [facility] Call your doctor if: Please call [...] managed by the Bariatric Surgery Team at [facility]. If you have any questions or concerns, please feel free to contact us. Provider Contact Information: General Surgery Clinic: [facility] (after business hours): CC: MANOLO [...] flowsheet for pain assessment. Pt with Dilaudid MANAGER OF CUSTOMER BILLING 0.3/15/5 pt understands use, not utilized overnight. [...] pain. Pt stating good relief with Dilaudid MANAGER OF CUSTOMER BILLING. Pt reporting no nausea,SOB or chest pain. Assessment as documented. Will continue to monitor. * Op Note - Misty De Guzman MD - 02/10/2014 2:56 PM EDT [facility] Operative Note Patient Name: Eugene Rueda : [id number] MR#: [id number] Case Date: 02/10/2014 Surgeon: Surgeon(s) and Role: * Misty De Guzman MD - Primary * Ricky Trotter MD - Resident-Electronics Test Engineer * Homero Hernandez MD - [facility] Preoperative diagnosis: post-op bleeding s/p rnygb Postoperative [...] Operative Note Patient Name: Eugene Rueda : [id number] MR#: [id number] Case Date: 02/10/2014 Surgeon: Surgeon(s) and Role: * Misty De Guzman MD - Primary * Ricky Trotter MD - Resident-Electronics Test Engineer * Homero Hernandez MD - Resident-Electronics Test Engineer Preoperative diagnosis: post-op bleeding s/p rnygb Postoperative [...] Attestation - Misty De Guzman MD - 02/10/2014 1:55 PM EDT Attestation: Case Date: 02/10/2014 I was the attending for the procedure and was present throughout the operation and supervised the resident MISTY DE GUZMAN MD 02/10/2014 * Brief Op Note - Ricky Trotter MD - 02/10/2014 12:28 PM EDT Brief Operative Note Patient Name: Eugene Rueda : [id number] MR#: [id number] Case Date: 02/10/2014 Surgeon: Surgeon(s) and Role: * Misty De Guzman MD - Primary * Ricky Trotter MD - Resident-Electronics Test Engineer * Homero Hernandez MD - Resident-Electronics Test Engineer Preoperative diagnosis: post-op bleeding s/p rnygb Postoperative diagnosis: post-op bleeding s/p rnygb Procedure(s): LAPAROSCOPY, DIAGNOSTIC, ABDOMEN Anesthesia: General Findings: dense clot under liver and diaphragm, no site of active bleeding Complications: none Fluids: 1300cc Estimated Blood Loss: 500cc Drains: 10 Azeri MONICA drain Disposition: awakened from anesthesia, extubated [...] Operative Note Patient Name: Eugene Rueda : [id number] MR#: [id number] Case Date: 02/08/2014 Surgeon: Surgeon(s) and Role: [...] DE GUZMAN MD 02/08/2014 * Miscellaneous - Provider, Scanning - 02/08/2014 11:13 AM EDT * Miscellaneous - Provider, Scanning - 02/08/2014 11:13 AM EDT * Op Note - Misty De Guzman MD - 02/08/2014 9:37 AM EDT [facility] Operative Note Patient Name: Eugene Rueda : [id number] MR#: [id number] Case Date: 02/08/2014 Surgeon: Surgeon(s) and Role: [...] engaged with the bariatric surgery program at [facility]. He has multiple weight-related comorbidities, he meets NIH criteria for weight loss surgery, and he has had full participation in the [facility] b[place] program. Following review [...] posteriorly and encircle the esophagus with a [place] drain. This was held in place using [...] all other items from the esophagus. The [place] 60 blue load was angled horizontally at [...] and the small-bowel serosa, and using an [place] 60 with a white load the jejunum [...] fashioned using a single firing of the [place] 60 with a white load. That enterotomy [...] limb, and a partial firing of the [place] 60 blue load at 30 mm was formed for the gastrojejunostomy. A 30-Azeri bougie was then passed by Anesthesia down [...] 10:00 AM EDT [place] [address] Catrachito Mehta MD [facility] [place] [address] documented as of this encounter Procedures Procedure Name Priority Date/Time Associated Diagnosis Comments CALL WORKER PERSON SCAN 02/13/2014 12:56 PM EDT POCT GLUCOSE [...] GLUCOSE Routine 02/10/2014 12:34 PM EDT LAPAROSCOPY, DIAGNOSTIC Routine 02/10/2014 8:33 AM EDT [...] 02/09/2014 5:05 PM EDT TYPE AND SCREEN (MC/CGP/EDGAR) STAT 02/09/2014 5:05 PM EDT BASIC METABOLIC [...] in this encounter Results * SCAN DOC: CALL WORKER PERSON (02/13/2014 12:56 PM EDT) Anatomical Region Laterality Modality Other Narrative 02/13/2014 1:14 PM EDT Procedure Note Provider, Scanning - 02/13/2014 12:56 PM EDT Scanning Provider MEDIA MGR SCAN EXT O RDR/RSLT * POCT Glucose (02/12/2014 12:09 PM EDT) POC Glucose 145 60 - 199 mg/dL [facility] Comment: Supplemental ranges: <110 mg/dL before meals <200 mg/dL all other times of the day Blood specimen (specimen) 02/12/2014 12:09 PM EDT 02/12/2014 12:09 PM EDT Misty De Guzman MD POINT OF CARE TEST ORDERABLES Performing Organization Address City/[facility]/ZIP Co de Phone Number [facility] * POCT Glucose (02/12/2014 7:04 AM EDT) POC Glucose 134 60 - 199 mg/dL [facility] Comment: Supplemental ranges: <110 mg/dL before meals <200 mg/dL all other times of the day Blood specimen (specimen) 02/12/2014 7:04 AM EDT 02/12/2014 7:04 AM EDT Misty De Guzman MD POINT OF CARE TEST ORDERABLES [facility] * (ABNORMAL) Differential, Automated (02/12/2014 5:32 AM EDT) Neutrophils % 70.2 34.0 - 71.0 % [facility] Neutr Abs (ANC) 5.11 1.50 - 6.30 x10(3)/mc L [facility] MILL[facility]NI[facility] Lymphocytes % 11.5(L) 19.0 - 53.0 % [...] Misty De Guzman MD HEMATOLOGY ORDERABL ES [facility] * (ABNORMAL) Basic Metabolic Panel (non-fasting) (02/12/2014 5:32 AM EDT) [facility] Glucose Lvl 131 60 - 199 mg/dL [facility] MILLENNI[facility] Comment:Diabetes: >=200 mg/d L plus symptoms BUN 16 10 - 20 mg/dL [facility] MILLENNI[facility] Creatinine 0.67(L) 0.80 - 1.50 mg/dL [facility] MILLENNIUM Comment: Please note that the pediatric reference intervals supplied above were not validated at [facility]. Results from pediatric patients should [...] MD CHEMISTRY ORDERABLE S DERICK MURPHY * (ABNORMAL) CBC (with Diff) (02/12/2014 5:32 AM EDT) WBC 7.3 4.0 - 10.0 x10(3)/mcL [facility] MILLENNIUM RBC 3.21(L) 4.63 - 6.08 x10(6)/mcL [facility] MILLENNI[facility] Hemoglobin 9.5(L) 13.7 - 17.5 gm/dL [facility] Hematocrit 29.3(L) 40.0 - 51.0 % [facility] MILLENNI[facility] MCV 91.3 79.0 - 92.0 fL C[facility] MILLENNIUM MCH 29.6 25.6 - 32.2 pg [facility] MCHC 32.4 32.0 - 36.5 gm/dL [facility] Platelets 200 145 - 370 x10(3)/mcL [facility] RDWSD 47.9(H) 35.0 - 46.0 fL [facility] RDWCV 14.3 10.9 - 14.4 % [facility] MPV 9.3 9.0 - 12.0 fL [facility] Blood specimen (specimen) 02/12/2014 5:32 AM EDT 02/12/2014 5:58 AM EDT Narrative Resulting Agency Comment Spec In Lab Misty De Guzman MD HEMATOLOGY ORDERABL ES Performing Organization Address [facility] Co de Phone Number [facility] * POCT Glucose (02/12/2014 3:50 AM EDT) POC Glucose 123 60 - 199 mg/dL [facility] Comment: Supplemental ranges: <110 mg/dL before meals <200 mg/dL all other times of the day Blood specimen (specimen) 02/12/2014 3:50 AM EDT 02/12/2014 3:50 AM EDT Misty De Guzman MD POINT OF CARE TEST ORDERABLES Performing Organization Address [facility] de Phone Number [facility] * POCT Glucose (02/11/2014 11:26 PM EDT) POC Glucose 178 60 - 199 mg/dL [facility] Comment: Supplemental ranges: <110 mg/dL before meals <200 mg/dL all other times of the day Blood specimen (specimen) 02/11/2014 11:26 PM EDT 02/11/2014 11:26 PM EDT Misty De Guzman MD POINT OF CARE TEST ORDERABLES Performing Organization Address [facility] de Phone Number [facility] * POCT Glucose (02/11/2014 7:20 PM EDT) POC Glucose 140 60 - 199 mg/dL [facility] Comment: Supplemental ranges: <110 mg/dL before meals <200 mg/dL all other times of the day Blood specimen (specimen) 02/11/2014 7:20 PM EDT 02/11/2014 7:20 PM EDT Misty De Guzman MD POINT OF CARE TEST ORDERABLES Performing Organization Address [facility] Co de Phone Number [facility] * POCT Glucose (02/11/2014 4:15 PM EDT) POC Glucose 149 60 - 199 mg/dL [facility] Comment: Supplemental ranges: <110 mg/dL before meals <200 mg/dL all other times of the day Blood specimen (specimen) 02/11/2014 4:15 PM EDT 02/11/2014 4:15 PM EDT Misty De Guzman MD POINT OF CARE TEST ORDERABLES Performing Organization Address [facility] Co de Phone Number [facility] * POCT Glucose (02/11/2014 11:45 AM EDT) POC Glucose 157 60 - 199 mg/dL [facility] Comment: Supplemental ranges: <110 mg/dL before meals <200 mg/dL all other times of the day Blood specimen (specimen) 02/11/2014 11:45 AM EDT 02/11/2014 11:45 AM EDT Misty De Guzman MD POINT OF CARE TEST ORDERABLES Performing Organization Address [facility] Co de Phone Number [facility] * POCT Glucose (02/11/2014 6:56 AM EDT) POC Glucose 158 60 - 199 mg/dL [facility] Comment: Supplemental ranges: <110 mg/dL before meals <200 mg/dL all other times of the day Blood specimen (specimen) 02/11/2014 6:56 AM EDT 02/11/2014 6:56 AM EDT Misty De Guzman MD POINT OF CARE TEST ORDERABLES D[facility] MURPHYENNIUM * (ABNORMAL) Differential, Automated (02/11/2014 4:46 AM [...] DERICK KRAFTIUM * (ABNORMAL) CBC (with Diff) (02/11/2014 4:46 [...] De Guzman MD HEMATOLOGY ORDERABL ES DERICK MURPHY * (ABNORMAL) Basic Metabolic Panel (non-fasting) (02/11/2014 4:46 AM EDT) Glucose Lvl 152 60 - 199 mg/dL [facility] Comment:Diabetes: >=200 mg/d L plus symptoms BUN 17 10 - 20 mg/dL [facility] MILL[facility]NI[facility] Creatinine 0.90 0.80 - 1.50 mg/dL [facility] MILLENNI[facility] Comment: Please note that the pediatric reference intervals supplied above were not validated at [facility]. Results from pediatric patients should [...] MD CHEMISTRY ORDERABLE S Performing Organization Address [facility] Co de Phone Number DERICK KRAFTIUM * POCT Glucose (02/11/2014 4:35 AM EDT) POC Glucose 151 60 - 199 mg/dL [facility] MILL[facility]NI[facility] Comment: Supplemental ranges: <110 mg/dL before meals <200 mg/dL all other times of the day Blood specimen (specimen) 02/11/2014 4:35 AM EDT 02/11/2014 4:35 AM EDT Misty De Guzman MD POINT OF CARE TEST ORDERABLES Performing Organization Address [facility] Co de Phone Number DERICK MURPHYENNIUM * POCT Glucose (02/10/2014 11:29 PM EDT) POC Glucose 146 60 - 199 mg/dL [facility] Comment: Supplemental ranges: <110 mg/dL before meals <200 mg/dL all other times of the day Blood specimen (specimen) 02/10/2014 11:29 PM EDT 02/10/2014 11:29 PM EDT Misty De Guzman MD POINT OF CARE TEST ORDERABLES Performing Organization Address City/[facility] Co de Phone Number [facility] * POCT Glucose (02/10/2014 7:58 PM EDT) POC Glucose 112 60 - 199 mg/dL [facility] Comment: Supplemental ranges: <110 mg/dL before meals <200 mg/dL all other times of the day Blood specimen (specimen) 02/10/2014 7:58 PM EDT 02/10/2014 7:58 PM EDT Misty De Guzman MD POINT OF CARE TEST ORDERABLES Performing Organization Address City/[facility] Co de Phone Number [facility] * POCT Glucose (02/10/2014 4:06 PM EDT) POC Glucose 141 60 - 199 mg/dL [facility] Comment: Supplemental ranges: <110 mg/dL before meals <200 mg/dL all other times of the day Blood specimen (specimen) 02/10/2014 4:06 PM EDT 02/10/2014 4:06 PM EDT Misty De Guzman MD POINT OF CARE TEST ORDERABLES Performing Organization Address [facility] Co de Phone Number [facility] * (ABNORMAL) Differential, Automated (02/10/2014 3:50 PM EDT) Neutrophils % 82.5(H) 34.0 - 71.0 % [facility] Neutr Abs (ANC) 9.11(H) 1.50 - 6.30 [...] De Guzman MD HEMATOLOGY ORDERABL ES [facility] * (ABNORMAL) CBC (with Diff) (02/10/2014 3:50 PM EDT) WBC 11.0(H) 4.0 - 10.0 x10(3)/mcL [facility] MILL[facility]NI[facility] RBC 3.36(L) 4.63 - 6.08 x10(6)/mcL [facility] MILL[facility]NI[facility] Hemoglobin 10.0(L) 13.7 - 17.5 gm/dL [facility] MILLENNI[facility] Hematocrit 30.8(L) 40.0 - 51.0 % CERNER MILLENNIUM MCV 91.7 79.0 - 92.0 fL [facility] MCH 29.8 25.6 - 32.2 pg CERWALDO MURPHYENNIUM MCHC 32.5 32.0 - 36.5 gm/dL [facility] MILLENNIUM Platelets 185 145 - 370 x10(3)/mcL CERWALDO MURPHYENNIUM RDWSD 49.1(H) 35.0 - 46.0 fL DERICK MURPHYENNIUM RDWCV 14.7(H) 10.9 - 14.4 % DERICK MURPHYENNIUM MPV 9.5 9.0 - 12.0 fL [facility] JEFFREYENNIUM Blood specimen (specimen) 02/10/2014 3:50 PM EDT 02/10/2014 3:56 PM EDT Narrative Resulting Agency Comment Spec In Lab Misty De Guzman MD HEMATOLOGY ORDERABL ES Performing Organization Address City/[facility]/ZIP Co de Phone Number [facility] * POCT Glucose (02/10/2014 12:34 PM EDT) POC Glucose 160 60 - 199 mg/dL [facility] Comment: Supplemental ranges: <110 mg/dL before meals <200 mg/dL all other times of the day Blood specimen (specimen) 02/10/2014 12:34 PM EDT 02/10/2014 12:34 PM EDT Misty De Guzman MD POINT OF CARE TEST ORDERABLES [facility] * (ABNORMAL) Prothrombin Time (02/10/2014 7:33 AM EDT) PT 17.0(H) 12.0 - 15.0 sec [facility] Comment: [facility] Transfusion Committee Guidelines: INR less than 2.0, PTT less than OR equal to 43.5 seconds, or Fibrinogen greater than or equal to 100 mg/dl indicate adequate procoagulant activity for hemostasis in patients without underlying bleeding disorders. INR 1.3(H) 0.9 - 1.1 [facility] Blood specimen (specimen) 02/10/2014 7:33 AM EDT 02/10/2014 7:39 AM EDT Narrative Resulting Agency Comment Spec In Lab Misty De Guzman MD HEMATOLOGY ORDERABL ES [facility] * Magnesium (02/10/2014 7:33 AM EDT) Magnesium 0.79 0.69 - 1.07 mmol/L [facility] MILLENNIUM Blood specimen (specimen) 02/10/2014 7:33 AM EDT 02/10/2014 7:39 AM EDT Narrative Resulting Agency Comment Spec In Lab Misty De Guzman MD CHEMISTRY ORDERABLE S Performing Organization Address City/[facility] Co de Phone Number C[facility]ER JEFFREYENNI[facility] * (ABNORMAL) Hemogram (02/10/2014 7:33 AM EDT) [...] MD HEMATOLOGY ORDERABL ES DER[facility] KRAFTIUM * POCT Glucose (02/10/2014 7:25 AM EDT) POC Glucose 131 60 - 199 mg/dL [facility] JEFFREYENNI[facility] Comment: Supplemental ranges: <110 mg/dL before meals <200 mg/dL all other times of the day Blood specimen (specimen) 02/10/2014 7:25 AM EDT 02/10/2014 7:25 AM EDT Misty De Guzman MD POINT OF CARE TEST ORDERABLES Performing Organization Address [facility] Co de Phone Number [facility]ERICK KRAFT[facility] * POCT Glucose (02/10/2014 4:11 AM EDT) POC Glucose 144 60 - 199 mg/dL [facility]ER[facility] KRAFTIUM Comment: Supplemental ranges: <110 mg/dL before meals <200 mg/dL all other times of the day Blood specimen (specimen) 02/10/2014 4:11 AM EDT 02/10/2014 4:11 AM EDT Misty De Guzman MD POINT OF CARE TEST ORDERABLES Performing Organization Address [facility] Co de Phone Number DERICK KRAFTIUM * [...] MD HEMATOLOGY ORDERABL ES Performing Organization Address City/[facility]/ZIP Co de Phone Number DERICK MURPHY * (ABNORMAL) Prothrombin Time (02/10/2014 2:40 AM EDT) PT 16.4(H) 12.0 - 15.0 sec CERNER MILLENNIUM Comment: [facility] Transfusion Committee Guidelines: INR less than [...] MD HEMATOLOGY ORDERABL ES DERICK KRAFTIUM * APTT (02/10/2014 2:40 AM EDT) PTT 33 25 - 35 sec CERNER MILLENNIUM Comment: Recommended therapeutic PTT range for full dose unfractionated heparin is 80-114 seconds. Blood specimen (specimen) 02/10/2014 2:40 AM EDT 02/10/2014 2:54 AM EDT Narrative Resulting Agency Comment Spec In Lab Misty De Guzman MD HEMATOLOGY ORDERABL ES Performing Organization Address [facility] [place]/[facility]/ZIP Co de Phone Number CERWALDO MURPHYENNIUM * (ABNORMAL) CBC (with Diff) (02/10/2014 [...] MD HEMATOLOGY ORDERABL ES Performing Organization Address [facility] [place]/[facility]/ZIP Co de Phone Number DERICK MURPHYENNIUM * (ABNORMAL) Basic Metabolic Panel (non-fasting) (02/10/2014 2:40 AM EDT) Glucose Lvl 142 60 - 199 mg/dL CERNER MILLENNIUM Comment:Diabetes: >=200 mg/d L plus symptoms BUN 26(H) 10 - 20 mg/dL CERNER MILLENNIUM Creatinine 1.57(H) 0.80 - 1.50 mg/dL CERNER MILLENNIUM Comment: result rechecked- llu Please note that the pediatric reference intervals supplied above were not validated [place] [facility] [place] Results from pediatric patients should [...] MD CHEMISTRY ORDERABLE S CERWALDO KRAFTIUM * POCT Glucose (02/09/2014 11:39 PM EDT) POC Glucose 153 60 - 199 mg/dL [facility] Comment: Supplemental ranges: <110 mg/dL before meals <200 mg/dL all other times of the day Blood specimen (specimen) 02/09/2014 11:39 PM EDT 02/09/2014 11:39 PM EDT Misty De Guzman MD POINT OF CARE TEST ORDERABLES Performing Organization Address City/[facility] Co de Phone Number [facility] * EKG 12 Lead (02/09/2014 10:11 PM EDT) Ventricular rate 130 BPM MUSE SYSTEM Atrial Rate 86 BPM MUSE SYSTEM QRS Duration 76 ms MUSE SYSTEM Q-T Interval 332 ms MUSE SYSTEM QTC Calculated (Bezet) 488 ms MUSE SYSTEM Calculated R [place] 47 degrees MUSE SYSTEM Calculated T [place] 35 degrees MUSE SYSTEM INTERPRETATION Atrial fibrillation with rapid ventricular response Low voltage QRS Abnormal ECG When compared with ECG of 18-NOV-2013 13:19, No significant change was found Confirmed by MD Darío, Andrez ([id number]) on 02/10/2014 11:18:33 PM MUSE SYSTEM 02/09/2014 10:1 1 PM EDT 02/10/2014 11:18 PM EDT Misty De Guzman MD ECG ORDERABLES Performing Organization Address [facility] [place]/[facility] de Phone Number MUSE SYSTEM * POCT Glucose (02/09/2014 10:03 PM EDT) Pathologist [facility] [place] POC Glucose 115 60 - 199 mg/dL [facility] Comment: Supplemental ranges: <110 mg/dL before meals <200 mg/dL all other times of the day Blood specimen (specimen) 02/09/2014 10:03 PM EDT 02/09/2014 10:03 PM EDT Misty De Guzman MD POINT OF CARE TEST ORDERABLES Performing Organization Address City/[facility] Co de Phone Number [facility] * (ABNORMAL) Hemogram (02/09/2014 9:00 PM EDT) [...] MD HEMATOLOGY ORDERABL ES Performing Organization Address [facility] [place]/[facility] de Phone Number CERNER JEFFREYENNIUM * Creatinine, urine, random (02/09/2014 8:50 PM EDT) U Creatinine 170 mg/dL CERNER MILLENNIUM Urine specimen (specimen) 02/09/2014 8:50 PM EDT 02/09/2014 9:50 PM EDT Narrative Resulting Agency Comment Spec In Lab Misty De Guzman MD URINE ORDERABLES CERNER MILLENNIUM * Electrolytes, urine, random (02/09/2014 8:50 PM EDT) U Sodium 34 mmol/L CERNER MILLENNIUM U Potassium 56 mmol/L CERNER MILLENNIUM U Chloride 22 mmol/L CERNER MILLENNIUM Urine specimen (specimen) 02/09/2014 8:50 PM EDT 02/09/2014 9:50 PM EDT Narrative Resulting Agency Comment Spec In Lab Misty De Guzman MD URINE ORDERABLES CERWALDO MURPHYENNIUM * POCT Glucose (02/09/2014 7:21 PM EDT) POC Glucose 116 60 - 199 mg/dL CERNER MILLENNIUM Comment: Supplemental ranges: <110 mg/dL before meals <200 mg/dL all other times of the day Blood specimen (specimen) 02/09/2014 7:21 PM EDT 02/09/2014 7:21 PM EDT Misty De Guzman MD POINT OF CARE TEST ORDERABLES Performing Organization Address City/[facility]/ZIP Co de Phone Number CERWALDO MURPHYENNIUM * (ABNORMAL) Differential, Automated (02/09/2014 5:05 PM EDT) Neutrophils % 78.6(H) 34.0 - 71.0 % [...] Gran % 0.30 0.00 - 0.66 % [facility] Comment: Immature granulocytes(IG's)percentage and absolute count will include metamyelocytes, myelocytes, and promyelocytes. Blood smears from CBCs yielding IG's will be scanned manually for concordance. If this scan disagrees with the automated IG or if promyelocytes are noted, a manual differential will be performed. Starr Gran Abs 0.04 0.00 - 0.05 x10(3)/mc L [facility] ABENACOUNT INCLUDES THE [facility] Blood specimen (specimen) 02/09/2014 5:05 PM EDT 02/09/2014 5:14 PM EDT Misty De Guzman MD HEMATOLOGY ORDERABL ES Performing Organization Address [facility] [place]/[facility] Phone Number [facility] * Antibody screen (02/09/2014 5:05 PM EDT) Ab Screen Interp Negative [facility] Expires at [id number] on: [id number] [facility]ITAL[facility] Blood specimen (specimen) 02/09/2014 5:05 PM EDT 02/09/2014 5:14 PM EDT Narrative Resulting Agency Comment Spec In Lab Misty De Guzman MD BLOOD BANK LAB ORDRajeev ALEGRIAPOLY Performing Organization Address [facility] [place]/[facility] Phone Number [facility] * ABO/Rh Typing (02/09/2014 5:05 PM EDT) ABORH Type A Pos DERICK M[facility]PHYBENSON HOSPITALNEO Blood specimen (specimen) 02/09/2014 5:05 PM EDT 02/09/2014 5:14 PM EDT Narrative Resulting Agency Comment Spec In Lab Misty De Guzman MD BLOOD BANK LAB ORDRajeev GRECO Performing Organization Address [facility] [place]/[facility] de Phone Number [facility] * (ABNORMAL) Basic Metabolic Panel (non-fasting) (02/09/2014 5:05 PM EDT) Glucose Lvl 144 60 - 199 mg/dL CERNER MILLENNIUM Comment:Diabetes: >=200 mg/d L plus symptoms BUN 30(H) 10 - 20 mg/dL CERNER MILLENNIUM Comment:result rechecked- MT F Creatinine 2.96(H) 0.80 - 1.50 mg/dL CERNER MILLENNIUM Comment: result rechecked- MTF Please note that the pediatric reference intervals supplied above were not validated [place] [facility] [place]. Results from pediatric patients should [...] MD CHEMISTRY ORDERABLE S CERWALDO KRAFTIUM * APTT (02/09/2014 5:05 PM EDT) PTT 31 25 - 35 sec CERNER MILLENNIUM Comment: Recommended therapeutic PTT range for full dose unfractionated heparin is 80-114 seconds. Blood specimen (specimen) 02/09/2014 5:05 PM EDT 02/09/2014 5:14 PM EDT Narrative Resulting Agency Comment Spec In Lab Misty De Guzman MD HEMATOLOGY ORDERABL ES Performing Organization Address [facility] [place]/[facility] de Phone Number DERICK KRAFTIUM * (ABNORMAL) Prothrombin Time (02/09/2014 5:05 PM EDT) PT 16.3(H) 12.0 - 15.0 sec CERNER MILLENNIUM Comment: [facility] Transfusion Committee Guidelines: INR less than [...] MD HEMATOLOGY ORDERABL ES Performing Organization Address [facility] [place]/[facility] de Phone Number CERWALDO MURPHY * (ABNORMAL) CBC (with Diff) (02/09/2014 5:05 [...] MD HEMATOLOGY ORDERABL ES Performing Organization Address [facility] [place]/[facility]/ZIP Co de Phone Number DERICK MURPHY * POCT Glucose (02/09/2014 5:05 PM EDT) POC Glucose 132 60 - 199 mg/dL DERICK MURPHYENNIUM Comment: Supplemental ranges: <110 mg/dL before meals <200 mg/dL all other times of the day Blood specimen (specimen) 02/09/2014 5:05 PM EDT 02/09/2014 5:05 PM EDT Misty De Guzman MD POINT OF CARE TEST ORDERABLES Performing Organization Address [facility] [place]/[facility] Co [place] Phone Number DERICK KRAFTCOUNT INCLUDES THE [facility] * XR Fluoro Upper GI Small Bowel (02/09/2014 3:50 PM EDT) Anatomical Region Laterality Modality N/A Radiographic Sia ging 02/09/2014 3:50 PM EDT Narrative 02/10/2014 12:05 PM EDT Examination UGI W/SMALL BOWEL FOLLOW THROU Clinical History s/p gastric bypass, eval GJ and JJ anastomoses Comparison None Technique Billet Inspector views of the abdomen. Oral administration of [...] GJ and JJ anastomoses Comparison None Technique Billet Inspector views of the abdomen. Oral administration of [...] by the attending Homero Gonzales MD IMG CAROLIN RIZZORajeev ANGUS * POCT Glucose (02/09/2014 11:56 AM EDT) POC Glucose 162 60 - 199 mg/dL [facility] Comment: Supplemental ranges: <110 mg/dL before meals <200 mg/dL all other times of the day Blood specimen (specimen) 02/09/2014 11:56 AM EDT 02/09/2014 11:56 AM EDT Misty De Guzman MD POINT OF CARE TEST ORDERABLES Performing Organization Address [facility] [place]/[facility] de Phone Number [facility] * POCT Glucose (02/09/2014 7:19 AM EDT) POC Glucose 182 60 - 199 mg/dL [facility] Comment: Supplemental ranges: <110 mg/dL before meals <200 mg/dL all other times of the day Blood specimen (specimen) 02/09/2014 7:19 AM EDT 02/09/2014 7:19 AM EDT Misty De Guzman MD POINT OF CARE TEST ORDERABLES Performing Organization Address [facility] [place]/[facility] de Phone Number [facility] [employer] [facility]NOR[facility] * POCT Glucose (02/09/2014 4:53 AM EDT) POC Glucose 159 60 - 199 mg/dL [facility] Comment: Supplemental ranges: <110 mg/dL before meals <200 mg/dL all other times of the day Blood specimen (specimen) 02/09/2014 4:53 AM EDT 02/09/2014 4:53 AM EDT Misty De Guzman MD POINT OF CARE TEST ORDERABLES Performing Organization Address [facility] [place]/[facility] Co de Phone Number [facility] BI-[employer] TechnologiesENNIUM * (ABNORMAL) Differential, Automated (02/09/2014 4:37 AM [...] 5:07 AM EDT Homero Gonzales MD HEMATOLOGY SANDY GRECO CERNER MILLENNIUM * Scan, Peripheral Blood (02/09/2014 4:37 AM EDT) Plat Estimate Normal CERNER MILLENNIUM RBC Morphology Abnormal CERNE R MILLENNIUM Ovalocytes 1-5 /HPF CERWALDO MURPHYENNIUM Blood specimen (specimen) 02/09/2014 4:37 AM EDT 02/09/2014 5:07 AM EDT Narrative Resulting Agency Comment Spec In Lab Homero Gonzales MD HEMATOLOGY ORDE RAJILES Performing Organization Address [facility] [place]/[facility] Co de Phone Number DERICK KRAFTIUM * Phosphorus (02/09/2014 4:37 AM EDT) Phosphorus 4.5 2.5 - 4.5 mg/dL [facility]ITALIUM Blood specimen (specimen) 02/09/2014 4:37 AM EDT 02/09/2014 5:07 AM EDT Narrative Resulting Agency Comment Spec In Lab Homero Gonzales MD CHEMISTRY ORDER RICCARDO Performing Organization Address [facility] [place]/[facility] Co de Phone Number DERICK KRAFTIUM * Magnesium (02/09/2014 4:37 AM EDT) Magnesium 0.75 0.69 - 1.07 mmol/L DERICK KRAFTIUM Blood specimen (specimen) 02/09/2014 4:37 AM EDT 02/09/2014 5:07 AM EDT Narrative Resulting Agency Comment Spec In Lab Homero Gonzales MD CHEMISTRY ORDER RICCARDO Performing Organization Address [facility] [place]/[facility] Co de Phone Number [facility] ABENAIUM * (ABNORMAL) Glucose, fasting (02/09/2014 4:37 AM EDT) Glucose Fasting 176(H) 65 - 99 mg/dL [facility] ABENAIUM Comment: ?Fasting* Glucose Interpretive Criteria Normal ?65-99 [...] of Diabetes Mellitus, Position Statement from the [place] [employer]. ??Diabetes Care, Volume 33, Supplement 1, Oct 2009 Blood specimen (specimen) 02/09/2014 4:37 AM EDT 02/09/2014 5:07 AM EDT Narrative Resulting Agency Comment Spec In Lab oHmero Gonzales MD CHEMISTRY ORDER RICCARDO Performing Organization Address [facility] [place]/[facility] Co de Phone Number [email or web address] * Creatinine (02/09/2014 4:37 AM EDT) Creatinine 1.13 0.80 - 1.50 mg/dL [facility] General Specific Comment: Please note that the pediatric reference intervals supplied above were not validated [place] [facility] [place] Results from pediatric patients should be interpreted in conjunction to the patient's age, height and muscle mass. Estimated GFR >60 >=60 CERNER Nine StarIUM Comment: This estimated GFR (eGFR) value was [...] MD CHEMISTRY ORDER RICCARDO Performing Organization Address City/[facility]/ZIP Co de Phone Number [email or web address] * BUN (02/09/2014 4:37 AM EDT) BUN 18 10 - 20 mg/dL CERNER MILLENNIUM Blood specimen (specimen) 02/09/2014 4:37 AM EDT 02/09/2014 5:07 AM EDT Narrative Resulting Agency Comment Spec In Lab Homero Gonzales MD CHEMISTRY ORDER RICCARDO Performing Organization Address City/[facility] Co de Phone Number CERNER JEFFREYENNIUM * Electrolytes panel (02/09/2014 4:37 AM EDT) [...] MD CHEMISTRY ORDER RICCARDO Performing Organization Address [facility] [place]/[facility] Co de Phone Number CERNER MILLENNIUM * (ABNORMAL) CBC (with Diff) (02/09/2014 4:37 AM EDT) WBC 12.8(H) 4.0 - 10.0 x10(3)/mcL CERNER MILLENNIUM RBC 4.31(L) 4.63 - 6.08 x10(6)/mcL CERNER MILLENNIUM Hemoglobin 12.7(L) 13.7 - 17.5 gm/dL CERNER MILLENNIUM Hematocrit 38.6(L) 40.0 - 51.0 % CERNER MILLENNIUM MCV 89.6 79.0 - 92.0 fL CERNER MILLENNIUM MCH 29.5 25.6 - 32.2 pg CERNER MILLENNIUM MCHC 32.9 32.0 - 36.5 gm/dL [facility]FFREYBENSON HOSPITALIUM Platelets 249 145 - 370 x10(3)/mcL CERWALDO MILLENNIUM RDWSD 46.6(H) 35.0 - 46.0 fL [facility] JEFFREYENNIUM RDWCV 14.2 10.9 - 14.4 % DERICK MURPHYENNIUM MPV 9.9 9.0 - 12.0 fL [facility]ITAL[facility] Blood specimen (specimen) 02/09/2014 4:37 AM EDT 02/09/2014 5:07 AM EDT Narrative Resulting Agency Comment Spec In Lab Homero Gonzales MD HEMATOLOGY SANDY GRECO [facility] * POCT Glucose (02/09/2014 12:26 AM EDT) POC Glucose 165 60 - 199 mg/dL [facility] Comment: Supplemental ranges: <110 mg/dL before meals <200 mg/dL all other times of the day Blood specimen (specimen) 02/09/2014 12:26 AM EDT 02/09/2014 12:26 AM EDT Misty De Guzman MD POINT OF CARE TEST ORDERABLES Performing Organization Address [facility] [place]/[facility]/ZIP Co de Phone Number [facility] * POCT Glucose (02/08/2014 7:01 PM EDT) POC Glucose 152 60 - 199 mg/dL [facility] Comment: Supplemental ranges: <110 mg/dL before meals <200 mg/dL all other times of the day Blood specimen (specimen) 02/08/2014 7:01 PM EDT 02/08/2014 7:01 PM EDT Misty De Guzman MD POINT OF CARE TEST ORDERABLES Performing Organization Address [facility] [place]/[facility]/ZIP Co de Phone Number [facility] * POCT Glucose (02/08/2014 3:23 PM EDT) POC Glucose 175 60 - 199 mg/dL CERNER MILLENNIUM Comment: Supplemental ranges: <110 mg/dL before meals <200 mg/dL all other times of the day Blood specimen (specimen) 02/08/2014 3:23 PM EDT 02/08/2014 3:23 PM EDT Misty De Guzman MD POINT OF CARE TEST ORDERABLES Performing Organization Address [facility] [place]/[facility] Phone Number DERICK MURPHY * POCT Glucose (02/08/2014 9:29 AM EDT) POC Glucose 133 60 - 199 mg/dL DERICK JEFFREYELIZABETHIUM Comment: Supplemental ranges: <110 mg/dL before meals <200 mg/dL all other times of the day Blood specimen (specimen) 02/08/2014 9:29 AM EDT 02/08/2014 9:29 AM EDT Misty De Guzman MD POINT OF CARE TEST ORDERABLES Performing Organization Address [facility] [place]/[facility] Phone Number DERICK MURPHY * Prothrombin Time (02/08/2014 8:34 AM EDT) PT 15.0 12.0 - 15.0 sec DERICK JEFFREYELIZABETHIUM Comment: [facility] Transfusion Committee Guidelines: INR less than 2.0, PTT less than OR equal to 43.5 seconds, or Fibrinogen greater than or equal to 100 mg/dl indicate adequate procoagulant activity for hemostasis in patients without underlying bleeding disorders. INR 1.1 0.9 - 1.1 DERICK MURPHY Blood specimen (specimen) 02/08/2014 8:34 AM EDT 02/08/2014 8:38 AM EDT Narrative Resulting Agency Comment Spec In Lab Misty De Guzman MD HEMATOLOGY ORDERABL ES Performing Organization Address [facility] [place]/[facility] Phone Number DERICK MURPHY documented in this encounter Visit Diagnoses Not on filedocumented in this encounter Administered Medications Inactive Administered Medications - up to 3 most recent administrations Medication Order MAR Action Action Date Dose Rate Site BUpivacaine (PF) (MARCAINE) 0.25 % (2.5 mg/mL) injection ONCE PRN, Starting on Sat02/08/14 at 1128, Until Sat02/08/14 at 1700, Intra-Operative (Intra-Procedure), Routine Given 02/08/2014 11:28 AM EDT 10 mg 19- Surgical Site documented in this encounter Active and Recently [...] Demi Jung RN)2334 (Given - Provider: Bari Duckworth, RN) 0604 (Given - Provider: Bari Duckworth [...] RN) 0352 (Not Given - Provider: Bari Duckworth RN - Reason: Order parameters not met)0800 (Not Given - Provider: Ora Vela RN - Reason: Order parameters not met)1235 (Given - Provider: Ora Vela RN) magnesium sulfate 2 g in sterile water 50 mL (COMPLETED) 2 g, Intravenous, ONCE, 1 dose, On Sat02/10/14 at 0900, Administer over 120 Minutes 0848 (Given - Provider: Tierra Frost RN) metFORMIN (GLUCOPHAGE) tablet 1,000 mg (CANCELED) 1,000 mg, Oral, 2 TIMES DAILY WITH MEALS, First dose (after last modification) on Sat02/12/14 at 1045, Until Discontinued, Routine 1059 (Given - Provider: Ora Vlea RN) ramipril (ALTACE) capsule 10 mg (CANCELED) 10 [...] RN) 1209 (Given - Provider: Demi Jung RN)2018 (Given - Provider: Bari Duckworth, FRACISCO) 0839 (Given - Provider: Ora Vela RN) sodium chloride 0.9% 1,000 mL IV bolus [...] Procedural area)1401 (DEC Unhold - Provider: Admin Adt)211 (Given - Provider: Mikayla Lincoln, FRACISCO) 0800 [...] (Rate/Dose Change - Provider: Tierra Frost RN)0931 (DEC Hold - Provider: Admin Adt - Reason: Transfer to a Procedural area)1233 (DEC Unhold - Provider: Meliton Mcpherson, RN)1257 (Rate/Dose Verify - Provider: Meliton Mcpherson, RN)2141 (New Bag - Provider: Mikayla Lincoln RN) 0439 (Rate/Dose Verify - Provider: Mikayla Lincoln RN)0638 (New Bag - Provider: Mary Hou RN)0745 (Rate/Dose Change - Provider: Demi Jung, FRACISCO)1928 (Rate/Dose Verify - Provider: Bari Duckworth, RN) 0034 (New Bag - Provider: Bari Duckworth, RN)0633 (Stopped - Provider: Bari Duckworth RN) HYDROmorphone (DILAUDID) 1 mg/mL MANAGER OF CUSTOMER BILLING 30 mL (CANCELED) Intravenous, MANAGER OF CUSTOMER BILLING ONLY, Starting on 02/08/14 at 1545, Until Diamond 02/11/14 at 0721 1306 (Restarted - Provider: Meliton Mcpherson, RN) lactated ringers infusion (CANCELED) 40 mL/hr, Intravenous, CONTINUOUS, Starting on 02/08/14 at 1545, Until Sat02/12/14 at 0658 0150 (New Bag - Provider: Mikayla Lincoln, FRACISCO)0931 (MAR Hold - Provider: Admin Adt - Reason: Transfer to a Procedural area)1234 (MAR Unhold - Provider: Meliton Mcpherson, RN)1305 (New Bag - Provider: Meliton Mcpherson, FRACISCO)1533 (Rate/Dose Change - Provider: Tierra Frost RN) 0529 (New Bag - Provider: Mikayla Lincoln, FRACISCO) 0402 (New Bag - Provider: Bari Duckworth, RN) PRN Medication Order 02/10/2014 02/11/2014 02/12/2014 oxyCODONE (ROXICODONE) 5 mg/5 mL solution 5-10 mg 5-10 mg, Oral, EVERY 4 HOURS PRN, Starting on Diamond 02/11/14 at 0720, Until Sat02/12/14 at 1450, Pain, Routine thrombn (Hum Plas)-Fib-Apro-Ca (TISSEEL VHSD) 10 mL topical syringe (CANCELED) ONCE PRN, Starting on Sat02/10/14 at 1126, Until Sat02/12/14 at 1450, Intra-Operative (Intra-Procedure), Routine 1126 (Given - Provider: Misty De Guzman MD) documented in this encounter Care Teams Corporate Events Director Relationship Specialty Start Date End Date Manolo Castro MD [address] [place] [address] PCP - General 05/14/12 04/21/17 documented as of this encounter
--- OUTSIDE RECORDS SUMMARY | 2024-04-27 14:55 | XMS_ITS | Encounter Summary ---
Author Organization Formerly [facility] [place] [address] Care Team Providers Care Central Office Equipment Installer Name Role Phone Manolo Castro MD Primary Care Provider [phone] Encounter Details Date Type Department Care Team (Late st Contact Info) Description 02/10/2014 9:24 AM EDT - 02/10/2014 11:34 AM EDT Surgery [place] [address] Misty De Guzman MD [facility] [place] [address] LAPAROSCOPY, DIAGNOSTIC, ABDOMEN (WRVU 5.14) Social History Tobacco Use Types Packs/Day Years [...] EDT BARIATRIC SURGERY DISCHARGE INFORMATION CONTACT INFORMATION: [phone] Surgeons: Dr. Martinez, Cyndi, Margarette and Hadley [phone] School Standards Coach: [phone] (Saturday through Saturday, 8:00 AM -5:00 PM) Dietitian: [phone] Non-business hours: [phone], ask for general surgeon medical donation professional FOR EMERGENCIES: CALL 911 (trouble breathing, chest [...] after surgery. This can be done at [facility] or via Primary Care Provider (PCP). Do [...] 200 on more than 3 rechecks, [facility] or diabetic specialist for specific [...] Follow up with primary care doctor or brake specialist in 1-2 weeks. Bring meter to [...] Provider Department Center 03/02/2014 3:00 PM Bariatric, Geophysics Scientist [facility] 03/02/2014 3:40 PM [...] 10:09 AM EDT Care Management/ CRC Pager# [phone]/ Assessment and Initial discharge planning S: I am feeling pretty good today. I had some jello and some apple juice. That is a good thing! My son Momo will be helping me when I am able to go home. O: Met with patient this morning. Notes reviewed. Patient lives in [facility]. Patient has Cigna, National OOS Blue PPO, and Medicare (part A only) insurance. [facility] Patient is POD# 3 laparoscopic Monica-en-Y gastric bypass, POD# 1 laparoscopy, evacuation of [...] q4hr prn. 99% on 2liters oxygen via gaming department head this morning. A: Patient progressing post-op. Patient [...] a 63 y.o. male POD 3 s/p monica-en-y gastric bypass and POD 1 s/p takeback [...] 63 y.o. male 1 Day Post-Op s/p monica-en-y gastric bypass and takeback for bleeding on POD 2 Hemoglobin is stable and Pain well controlled DC BINGO CLERK and start Oxycodone liquid for pain controll [...] Rueda is a 63 y.o. male s/p monica-en-y gastric bypass 24hr events: Eventful 24 hours: [...] Dilt @ 15 02/09 701 - 02/10 07 In: 4837.8 [P.O.:50; I.V.:4787.8] [...] 63 y.o. male 2 Days Post-Op s/p monica-en-y gastric bypass Check labs at 8am: Hemogram, [...] Office of Care Management (OCM) / Clinical Embossograph Operator (CRC)/ Initial Assessment Discussed patient with Provider Team and in multidisciplinary discharge-planning rounds. Reviewed record; patient off unit for procedure. Introduced/reviewed CRC role and services accepted. REASON for HOSPITALIZATION:s/p monica-en-y gastric bypass NPO; BINGO CLERK; IVF's;UGI/SBF pending;Lovenox (on Coumadin for AF) PMH Past Medical History Diagnosis Date ??? Blood disorder ??? Circulatory disease ??? 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 PRIMARY CARE PHYSICIAN: MANOLO CASTRO MD [place] [id number] / [facility] [place] [id number] POTENTIAL DISCHARGE NEEDS: none anticipated PATIENT/FAMILY EDUCATION NEEDS:per discharge summary ANTICIPATED BARRIERS TO DISCHARGE:none TRANSPORTATION @ D/C: PLAN: CRC will continue to monitor progress, follow for continuity of care and assist with discharge planning while hospitalized KENYATTA SANDS RN CRC for Melba Elmore RN CRC pager [phone] . * Ricky Trotter MD - 02/09/2014 8:26 AM EDT General Surgery Resident Inpatient Progress Note ID: Eugene Rueda is a 63 y.o. male s/p monica-en-y gastric bypass 24hr events: ?? Mild nausea [...] [93 %-100 %] 02/08 0701 - 02/09 07 In: 4667 [I.V.:4667] Out: 3160 [Urine:3030] Physical [...] 63 y.o. male 1 Day Post-Op s/p monica-en-y gastric bypass Will evaluate anastomoses with barium [...] pain and nausea at this time. Using BINGO CLERK appropriately, patient very drowsy but easily woken. Lap sites CDI. HR irreg. Will continue to monitor. * Radha Sanchez RN - 02/08/2014 4:49 PM EDT Report to Claire 4w. Pt sleepy, easily arousable. States he is comfortable. Gave bike mechanic with instruction. documented in this encounter H&P [...] has currently had full participation in the [facility] Bariatric Surgery Program and meets NIH criteria [...] majority of our 40 minutes today in [id number] conversation regarding various treatment options for obesity [...] 02/13/2014 12:56 PM EDTAssociated Order(s): SCAN DOC: EXHIBIT DESIGNER documented in this encounter Miscellaneous Notes * [...] y.o. male admitted on 02/08/2014 for a Monica-en-Y gastric bypass surgery. His surgery was uneventful [...] part of your care. Bariatric Surgery - [phone]: Follow-up with Dr. De Guzman PCP: MANOLO CASTRO MD, . Please follow-up with your PCP in 1-2 weeks or sooner as needed. Scheduled Appointments: The following appointments have been scheduled on your behalf: Future Appointments and Orders Future Appointments: Provider: Department: Dept Phone: Center: 03/02/2014 3:00 PM Geophysics Scientist Bariatric General Surgery [phone] [facility] 03/02/2014 3:40 PM Misty De Guzman MD General Surgery [phone] [facility] Outpatient Services/Studies: No discharge procedures on file. Instructions Given to Patient at Discharge: Provider Instructions BARIATRIC SURGERY DISCHARGE INFORMATION CONTACT INFORMATION: [phone] Surgeons: Cyndi Lujan Laycock and Trus [phone] School Standards Coach: [phone] (Saturday through Saturday, 8:00 AM -5:00 PM) Dietitian: [phone] Non-business hours: [phone], ask for general surgeon medical donation professional FOR EMERGENCIES: CALL 911 (trouble breathing, chest [...] after surgery. This can be done at [facility] or via Primary Care Provider (PCP). Do [...] 200 on more than 3 rechecks, call [facility] or diabetic specialist for specific [...] Follow up with primary care doctor or brake specialist in 1-2 weeks. Bring meter to [...] Provider Department Center 03/02/2014 3:00 PM Bariatric, Geophysics Scientist [facility] 03/02/2014 3:40 PM Misty De Guzman MD [facility] General Instructions None Future Appointments and Orders Future Appointments: Provider: Department: Dept Phone: Center: 03/02/2014 3:00 PM Geophysics Scientist Bariatric General Surgery [phone] [facility] 03/02/2014 3:40 PM Misty De Guzman MD General Surgery [phone] [facility] Call your doctor if: Please call [...] managed by the Bariatric Surgery Team at [facility]. If you have any questions or concerns, please feel free to contact us. Provider Contact Information: General Surgery Clinic: [facility] (after business hours): CC: MANOLO CASTRO MD [...] flowsheet for pain assessment. Pt with Dilaudid BINGO CLERK 0.3/15/5 pt understands use, not utilized overnight. [...] pain. Pt stating good relief with Dilaudid BINGO CLERK. Pt reporting no nausea,SOB or chest pain. Assessment as documented. Will continue to monitor. * Op Note - Misty De Guzman MD - 02/10/2014 2:56 PM EDT [facility] Operative Note Patient Name: Eugene Rueda : [id number] MR#: [id number] Case Date: 02/10/2014 Surgeon: Surgeon(s) and Role: * Misty De Guzman MD - Primary * Ricky Trotter MD - Resident-Technical Solutions Director * Homero Hernandez MD - [facility] Preoperative diagnosis: post-op bleeding s/p rnygb Postoperative diagnosis: post-op bleeding s/p rnygb Procedure(s): LAPAROSCOPY, DIAGNOSTIC, ABDOMEN Preoperative diagnosis is intra-abdominal bleeding status post Monica-en-Y gastric bypass. Postop Diagnosis: Same. Procedure Performed: Diagnostic laparoscopy, evacuation of intra-abdominal blood. Surgeons: Misty De Guzman M.D.; Ricky Shoemaker M.D.; Homero Gonzales M.D. Anesthesia: General endotracheal anesthesia. Complications: None. Indications for Surgery: The patient is a 63-year-old gentleman who underwent a laparoscopic Monica-en-Y gastric bypass two days earlier on 02/08/2014. [...] of the staple lines related to the Monica-en-Y gastric bypass itself. He underwent extensive irrigation [...] gastrojejunostomy itself. The small-bowel mesentery of the Monica limb was also inspected and no evidence [...] Operative Note Patient Name: Eugene Rueda : [id number] MR#: [id number] Case Date: 02/10/2014 Surgeon: Surgeon(s) and Role: * Misty De Guzman MD - Primary * Ricky Trotter MD - Resident-Technical Solutions Director * Homero Hernandez MD - Resident-Technical Solutions Director Preoperative diagnosis: post-op bleeding s/p rnygb Postoperative [...] Operative Note Patient Name: Eugene Rueda : [id number] MR#: [id number] Case Date: 02/10/2014 Surgeon: Surgeon(s) and Role: * Misty De Guzman MD - Primary * Ricky Trotter MD - Resident-Technical Solutions Director * Homero Hernandez MD - Resident-Technical Solutions Director Preoperative diagnosis: post-op bleeding s/p rnygb Postoperative diagnosis: post-op bleeding s/p rnygb Procedure(s): LAPAROSCOPY, DIAGNOSTIC, ABDOMEN Anesthesia: General Findings: dense clot under liver and diaphragm, no site of active bleeding Complications: none Fluids: 1300cc Estimated Blood Loss: 500cc Drains: 10 Amharic MONICA drain Disposition: awakened from anesthesia, extubated [...] Operative Note Patient Name: Eugene Rueda : [id number] MR#: [id number] Case Date: 02/08/2014 Surgeon: Surgeon(s) and Role: [...] Guzman MD - 02/08/2014 9:37 AM EDT [facility] Operative Note Patient Name: Eugene Rueda : [id number] MR#: [id number] Case Date: 02/08/2014 Surgeon: Surgeon(s) and Role: [...] Laparoscopic revision of previous Delroy fundoplication, laparoscopic Monica-en-Y gastric bypass, extensive lysis of adhesions, upper GI endoscopy. Surgeons: Misty De Guzman M.D.; Homero Gonzales M.D.; Ricky Shoemaker M.D. Anesthesia: General endotracheal anesthesia. Complications: None. Indications for Surgery: The patient is a 61-year-old gentleman who previously had undergone a laparoscopic paraesophageal hernia repair and Delroy fundoplication by myself in 2001. More recently he has been engaged with the bariatric surgery program at [facility]. He has multiple weight-related comorbidities, he meets NIH criteria for weight loss surgery, and he has had full participation in the [facility] bariatric surgery program. Following review of his therapeutic options, he has elected to undergo a laparoscopic Monica-en-Y gastric bypass. Findings at the Time of [...] fundoplication. We performed this with a 100-cm Monica limb. The gastrojejunostomy was evaluated using the [...] posteriorly and encircle the esophagus with a Fitzwilliam drain. This was held in place using [...] all other items from the esophagus. The [place] 60 blue load was angled horizontally at [...] and the small-bowel serosa, and using an [place] 60 with a white load the jejunum [...] fashioned using a single firing of the [place] 60 with a white load. That enterotomy was then closed in two layers using a running suture of 2-0 Nurolon. The greater omentum was then split off the midportion of the transverse colon using the Harmonic scalpel. The Monica limb was brought up to the proximal gastric pouch. It was noted to reach without any significant tension. Four stay sutures were placed between the posterior aspect of the proximal gastric pouch and the Monica limb. Enterotomies were then formed using monopolar cautery in the gastric pouch and the Monica limb, and a partial firing of the [place] 60 blue load at 30 mm was formed for the gastrojejunostomy. A 30-Amharic bougie was then passed by Anesthesia down [...] 10:00 AM EDT [place] [address] Catrachito Mehta MD [facility] [place] [address] documented as of this encounter Procedures Procedure Name Priority Date/Time Associated Diagnosis Comments EXHIBIT DESIGNER SCAN 02/13/2014 12:56 PM EDT POCT GLUCOSE [...] POCT GLUCOSE Routine 02/08/2014 3:23 PM EDT POCT GLUCOSE Routine 02/08/2014 9:29 AM EDT PROTHROMBIN TIME Routine 02/08/2014 8:34 AM EDT documented in this encounter Results * SCAN DOC: EXHIBIT DESIGNER (02/13/2014 12:56 PM EDT) Anatomical Region Laterality Modality Other Narrative 02/13/2014 1:14 PM EDT Procedure Note Provider, Scanning - 02/13/2014 12:56 PM EDT Scanning Provider MEDIA MGR SCAN EXT O RDR/RSLT * POCT Glucose (02/12/2014 12:09 PM EDT) POC Glucose 145 60 - 199 mg/dL CERNER MILLENNIUM Comment: Supplemental ranges: <110 mg/dL before meals <200 mg/dL all other times of the day Blood specimen (specimen) 02/12/2014 12:09 PM EDT 02/12/2014 12:09 PM EDT Misty De Guzman MD POINT OF CARE TEST ORDERABLES DERICK JEFFREYENNIUM * POCT Glucose (02/12/2014 7:04 AM EDT) POC Glucose 134 60 - 199 mg/dL CERNER MILLENNIUM Comment: Supplemental ranges: <110 mg/dL before meals <200 mg/dL all other times of the day Blood specimen (specimen) 02/12/2014 7:04 AM EDT 02/12/2014 7:04 AM EDT Misty De Guzman MD POINT OF CARE TEST ORDERABLES CERWALOD MURPHYENNIUM * (ABNORMAL) Differential, Automated (02/12/2014 5:32 AM [...] Misty De Guzman MD HEMATOLOGY ORDERABL ES [facility] * (ABNORMAL) Basic Metabolic Panel (non-fasting) (02/12/2014 5:32 AM EDT) Glucose Lvl 131 60 - 199 mg/dL CERNER MILLENNIUM Comment:Diabetes: >=200 mg/d L plus symptoms BUN 16 10 - 20 mg/dL CERNER MILLENNIUM Creatinine 0.67(L) 0.80 - 1.50 mg/dL CERNER MILLENNIUM Comment: Please note that the pediatric reference intervals supplied above were not validated at [facility]. Results from pediatric patients should be interpreted [...] Misty De Guzman MD CHEMISTRY ORDERABLE S [facility] * (ABNORMAL) CBC (with Diff) (02/12/2014 5:32 AM EDT) WBC 7.3 4.0 - 10.0 x10(3)/mcL CERNER MILLENNIUM RBC 3.21(L) 4.63 - 6.08 x10(6)/mcL CERNER MILLENNIUM Hemoglobin 9.5(L) 13.7 - 17.5 gm/dL CERNER MILLENNIUM Hematocrit 29.3(L) 40.0 - 51.0 % CERNER MILLENNIUM MCV 91.3 79.0 - 92.0 fL CERNER MILLENNIUM MCH 29.6 25.6 - 32.2 pg CERNER MILLENNIUM MCHC 32.4 32.0 - 36.5 gm/dL CERNER MILLENNIUM Platelets 200 145 - 370 x10(3)/mcL CERNER MILLENNIUM RDWSD 47.9(H) 35.0 - 46.0 fL CERNER MILLENNIUM RDWCV 14.3 10.9 - 14.4 % [facility] MPV 9.3 9.0 - 12.0 fL [facility] Blood specimen (specimen) 02/12/2014 5:32 AM EDT 02/12/2014 5:58 AM EDT Narrative Resulting Agency Comment Spec In Lab Misty De Guzman MD HEMATOLOGY ORDERABL ES Performing Organization Address [facility] Co de Phone Number [facility] * POCT Glucose (02/12/2014 3:50 AM EDT) POC Glucose 123 60 - 199 mg/dL [facility] Comment: Supplemental ranges: <110 mg/dL before meals <200 mg/dL all other times of the day Blood specimen (specimen) 02/12/2014 3:50 AM EDT 02/12/2014 3:50 AM EDT Misty De Guzman MD POINT OF CARE TEST ORDERABLES Performing Organization Address [facility] de Phone Number [facility] * POCT Glucose (02/11/2014 11:26 PM EDT) POC Glucose 178 60 - 199 mg/dL [facility] Comment: Supplemental ranges: <110 mg/dL before meals <200 mg/dL all other times of the day Blood specimen (specimen) 02/11/2014 11:26 PM EDT 02/11/2014 11:26 PM EDT Misty De Guzman MD POINT OF CARE TEST ORDERABLES Performing Organization Address [facility] de Phone Number [facility] * POCT Glucose (02/11/2014 7:20 PM EDT) POC Glucose 140 60 - 199 mg/dL [facility] Comment: Supplemental ranges: <110 mg/dL before meals <200 mg/dL all other times of the day Blood specimen (specimen) 02/11/2014 7:20 PM EDT 02/11/2014 7:20 PM EDT Misty De Guzman MD POINT OF CARE TEST ORDERABLES Performing Organization Address [facility] Co de Phone Number DERICK MURPHY * POCT Glucose (02/11/2014 4:15 PM EDT) POC Glucose 149 60 - 199 mg/dL DERICK JEFFREYELIZABETHIUM Comment: Supplemental ranges: <110 mg/dL before meals <200 mg/dL all other times of the day Blood specimen (specimen) 02/11/2014 4:15 PM EDT 02/11/2014 4:15 PM EDT Misty De Guzman MD POINT OF CARE TEST ORDERABLES Performing Organization Address [facility] de Phone Number DERICK KRAFTIUM * POCT Glucose (02/11/2014 11:45 AM EDT) POC Glucose 157 60 - 199 mg/dL [facility] Comment: Supplemental ranges: <110 mg/dL before meals <200 mg/dL all other times of the day Blood specimen (specimen) 02/11/2014 11:45 AM EDT 02/11/2014 11:45 AM EDT Misty De Guzman MD POINT OF CARE TEST ORDERABLES Performing Organization Address [facility] Co de Phone Number DERICK KRAFTIUM * POCT Glucose (02/11/2014 6:56 AM EDT) POC Glucose 158 60 - 199 mg/dL DERICK JEFFREYENNIUM Comment: Supplemental ranges: <110 mg/dL before meals <200 mg/dL all other times of the day Blood specimen (specimen) 02/11/2014 6:56 AM EDT 02/11/2014 6:56 AM EDT Misty De Guzman MD POINT OF CARE TEST ORDERABLES Performing Organization Address City/[facility] Co de Phone Number DERICK KRAFTIUM * (ABNORMAL) Differential, Automated (02/11/2014 4:46 AM [...] Misty De Guzman MD HEMATOLOGY ORDERABL ES [facility] * (ABNORMAL) Basic Metabolic Panel (non-fasting) (02/11/2014 4:46 AM EDT) Pathologist [facility] Glucose Lvl 152 60 - 199 mg/dL CERNER MILLENNIUM Comment:Diabetes: >=200 mg/d L plus symptoms BUN 17 10 - 20 mg/dL CERNER MILLENNIUM Creatinine 0.90 0.80 - 1.50 mg/dL CERNER MILLENNIUM Comment: Please note that the pediatric reference intervals supplied above were not validated at [facility]. Results from pediatric patients should be interpreted [...] MD CHEMISTRY ORDERABLE S Performing Organization Address [facility] Co de Phone Number [facility] * POCT Glucose (02/11/2014 4:35 AM EDT) POC Glucose 151 60 - 199 mg/dL [facility] Comment: Supplemental ranges: <110 mg/dL before meals <200 mg/dL all other times of the day Blood specimen (specimen) 02/11/2014 4:35 AM EDT 02/11/2014 4:35 AM EDT Misty De Guzman MD POINT OF CARE TEST ORDERABLES Performing Organization Address [facility] Co de Phone Number [facility] * POCT Glucose (02/10/2014 11:29 PM EDT) POC Glucose 146 60 - 199 mg/dL [facility] Comment: Supplemental ranges: <110 mg/dL before meals <200 mg/dL all other times of the day Blood specimen (specimen) 02/10/2014 11:29 PM EDT 02/10/2014 11:29 PM EDT Misty De Guzman MD POINT OF CARE TEST ORDERABLES Performing Organization Address [facility] Co de Phone Number DERICK KRAFTIUM * POCT Glucose (02/10/2014 7:58 PM EDT) POC Glucose 112 60 - 199 mg/dL DERICK JEFFREYENNIUM Comment: Supplemental ranges: <110 mg/dL before meals <200 mg/dL all other times of the day Blood specimen (specimen) 02/10/2014 7:58 PM EDT 02/10/2014 7:58 PM EDT Misty De Guzman MD POINT OF CARE TEST ORDERABLES Performing Organization Address [facility] de Phone Number SARTHAKWALDO KRAFTIUM * POCT Glucose (02/10/2014 4:06 PM EDT) POC Glucose 141 60 - 199 mg/dL DERICK ABENAIUM Comment: Supplemental ranges: <110 mg/dL before meals <200 mg/dL all other times of the day Blood specimen (specimen) 02/10/2014 4:06 PM EDT 02/10/2014 4:06 PM EDT Misty De Guzman MD POINT OF CARE TEST ORDERABLES Performing Organization Address [facility] de Phone Number DERICK MURPHY * (ABNORMAL) Differential, Automated (02/10/2014 3:50 PM [...] Misty De Guzman MD HEMATOLOGY ORDERABL ES [facility] * (ABNORMAL) CBC (with Diff) (02/10/2014 3:50 PM EDT) WBC 11.0(H) 4.0 - 10.0 x10(3)/mcL CERNER MILLENNIUM RBC 3.36(L) 4.63 - 6.08 x10(6)/mcL CERNER MILLENNIUM Hemoglobin 10.0(L) 13.7 - 17.5 gm/dL CERNER MILLENNIUM Hematocrit 30.8(L) 40.0 - 51.0 % CERNER MILLENNIUM MCV 91.7 79.0 - 92.0 fL CERNER MILLENNIUM MCH 29.8 25.6 - 32.2 pg CERNER MILLENNIUM MCHC 32.5 32.0 - 36.5 gm/dL CERNER MILLENNIUM Platelets 185 145 - 370 x10(3)/mcL CERWALOD MURPHYENNIUM RDWSD 49.1(H) 35.0 - 46.0 fL DERICK MURPHYENNIUM RDWCV 14.7(H) 10.9 - 14.4 % DERICK MURPHYENNIUM MPV 9.5 9.0 - 12.0 fL DERICK MURPHYENNIUM Blood specimen (specimen) 02/10/2014 3:50 PM EDT 02/10/2014 3:56 PM EDT Narrative Resulting Agency Comment Spec In Lab Misty De Guzman MD HEMATOLOGY ORDERABL ES Performing Organization Address [facility] de Phone Number DERICK MURPHY * POCT Glucose (02/10/2014 12:34 PM EDT) POC Glucose 160 60 - 199 mg/dL DERICK MURPHY Comment: Supplemental ranges: <110 mg/dL before meals <200 mg/dL all other times of the day Blood specimen (specimen) 02/10/2014 12:34 PM EDT 02/10/2014 12:34 PM EDT Misty De Guzman MD POINT OF CARE TEST ORDERABLES Performing Organization Address [facility] Phone Number DERICK MURPHY * (ABNORMAL) Prothrombin Time (02/10/2014 7:33 AM EDT) PT 17.0(H) 12.0 - 15.0 sec DERICK MURPHY Comment: [facility] Transfusion Committee Guidelines: INR less than 2.0, PTT less than OR equal to 43.5 seconds, or Fibrinogen greater than or equal to 100 mg/dl indicate adequate procoagulant activity for hemostasis in patients without underlying bleeding disorders. INR 1.3(H) 0.9 - 1.1 DERICK KRAFTIUM Blood specimen (specimen) 02/10/2014 7:33 AM EDT 02/10/2014 7:39 AM EDT Narrative Resulting Agency Comment Spec In Lab Misty De Guzman MD HEMATOLOGY ORDERABL ES Performing Organization Address [facility]/ZIP Co de Phone Number CERWALDO MILLENNIUM * Magnesium (02/10/2014 7:33 AM EDT) Magnesium 0.79 0.69 - 1.07 mmol/L CERNER MILLENNIUM Blood specimen (specimen) 02/10/2014 7:33 AM EDT 02/10/2014 7:39 AM EDT Narrative Resulting Agency Comment Spec In Lab Misty De Guzman MD CHEMISTRY ORDERABLE S Performing Organization Address [facility] Co de Phone Number DERICK MURPHYENNIUM * (ABNORMAL) Hemogram (02/10/2014 7:33 AM EDT) [...] MD HEMATOLOGY ORDERABL ES Performing Organization Address [facility]/ZIP Co de Phone Number DERICK KRAFTIUM * POCT Glucose (02/10/2014 7:25 AM EDT) Pathologist [facility] POC Glucose 131 60 - 199 mg/dL CERNER JEFFREYENNIUM Comment: Supplemental ranges: <110 mg/dL before meals <200 mg/dL all other times of the day Blood specimen (specimen) 02/10/2014 7:25 AM EDT 02/10/2014 7:25 AM EDT Misty De Guzman MD POINT OF CARE TEST ORDERABLES DERICK KRAFTIUM * POCT Glucose (02/10/2014 4:11 AM EDT) Pathologist [facility] POC Glucose 144 60 - 199 mg/dL CERNER JEFFREYENNIUM Comment: Supplemental ranges: <110 mg/dL before meals <200 mg/dL all other times of the day Blood specimen (specimen) 02/10/2014 4:11 AM EDT 02/10/2014 4:11 AM EDT Misty De Guzman MD POINT OF CARE TEST ORDERABLES Performing Organization Address City/State/[facility] Co de Phone Number DERICK KRAFTIUM * (ABNORMAL) Differential, Automated (02/10/2014 2:40 AM EDT) Pathologist [facility] Neutrophils % 76.9(H) 34.0 - 71.0 % [...] MD HEMATOLOGY ORDERABL ES Performing Organization Address [facility] Co de Phone Number CERWALDO Pouring PoundsIUM * (ABNORMAL) Prothrombin Time (02/10/2014 2:40 AM EDT) PT 16.4(H) 12.0 - 15.0 sec CERNER MILLENNIUM Comment: [facility] Transfusion Committee Guidelines: INR less than [...] MD HEMATOLOGY ORDERABL ES Performing Organization Address [facility] Co de Phone Number CERWALDO [employer] * APTT (02/10/2014 2:40 AM EDT) PTT 33 25 - 35 sec CERNER MILLENNIUM Comment: Recommended therapeutic PTT range for full dose unfractionated heparin is 80-114 seconds. Blood specimen (specimen) 02/10/2014 2:40 AM EDT 02/10/2014 2:54 AM EDT Narrative Resulting Agency Comment Spec In Lab Misty De Guzman MD HEMATOLOGY ORDERABL ES Performing Organization Address [facility] de Phone Number CERNER MILLENNIUM * (ABNORMAL) CBC (with Diff) (02/10/2014 2:40 [...] MD HEMATOLOGY ORDERABL ES Performing Organization Address [facility]/ZIP Co de Phone Number CERNER MILLENNIUM * (ABNORMAL) Basic Metabolic Panel (non-fasting) (02/10/2014 2:40 AM EDT) Glucose Lvl 142 60 - 199 mg/dL CERNER MILLENNIUM Comment:Diabetes: >=200 mg/d L plus symptoms BUN 26(H) 10 - 20 mg/dL CERNER MILLENNIUM Creatinine 1.57(H) 0.80 - 1.50 mg/dL CERNER MILLENNIUM Comment: result rechecked- llu Please note that the pediatric reference intervals supplied above were not validated at [facility]. Results from pediatric patients should be interpreted [...] POC Glucose 153 60 - 199 mg/dL CERNER MILLENNIUM Comment: Supplemental ranges: <110 mg/dL before meals <200 mg/dL all other times of the day Blood specimen (specimen) 02/09/2014 11:39 PM EDT 02/09/2014 11:39 PM EDT Misty De Guzman MD POINT OF CARE TEST ORDERABLES Performing Organization Address [facility] Co de Phone Number DERICK MURPHY * EKG 12 Lead (02/09/2014 10:11 PM EDT) Ventricular rate 130 BPM MUSE SYSTEM Atrial Rate 86 BPM MUSE SYSTEM QRS Duration 76 ms MUSE SYSTEM Q-T Interval 332 ms MUSE SYSTEM QTC Calculated (Bezet) 488 ms MUSE SYSTEM Calculated R [place] 47 degrees MUSE SYSTEM Calculated T [place] 35 degrees MUSE SYSTEM INTERPRETATION Atrial fibrillation with rapid ventricular response Low voltage QRS Abnormal ECG When compared with ECG of 18-NOV-2013 13:19, No significant change was found Confirmed by MD Darío, Andrez ([id number]) on 02/10/2014 11:18:33 PM MUSE SYSTEM 02/09/2014 10:1 1 PM EDT 02/10/2014 11:18 PM EDT Misty De Guzman MD ECG ORDERABLES Performing Organization Address [facility] Co de Phone Number MUSE SYSTEM * POCT Glucose (02/09/2014 10:03 PM EDT) POC Glucose 115 60 - 199 mg/dL [facility] Comment: Supplemental ranges: <110 mg/dL before meals <200 mg/dL all other times of the day Blood specimen (specimen) 02/09/2014 10:03 PM EDT 02/09/2014 10:03 PM EDT Misty De Guzman MD POINT OF CARE TEST ORDERABLES Performing Organization Address [facility] Co de Phone Number DERICK MURPHY * (ABNORMAL) Hemogram (02/09/2014 9:00 PM EDT) WBC 12.3(H) 4.0 - 10.0 x10(3)/mcL [facility] RBC 3.70(L) 4.63 - 6.08 x10(6)/mcL CERNER [...] MD HEMATOLOGY ORDERABL ES Performing Organization Address City/[facility]/ZIP Co de Phone Number [facility] JEFFREYENNIUM * Creatinine, urine, random (02/09/2014 8:50 PM EDT) U Creatinine 170 mg/dL CERNER MILLENNIUM Urine specimen (specimen) 02/09/2014 8:50 PM EDT 02/09/2014 9:50 PM EDT Narrative Resulting Agency Comment Spec In Lab Misty De Guzman MD URINE ORDERABLES [facility] JEFFREYENNIUM * Electrolytes, urine, random (02/09/2014 8:50 PM EDT) U Sodium 34 mmol/L CERNER MILLENNIUM U Potassium 56 mmol/L CERNER MILLENNIUM U Chloride 22 mmol/L CERNER MILLENNIUM Urine specimen (specimen) 02/09/2014 8:50 PM EDT 02/09/2014 9:50 PM EDT Narrative Resulting Agency Comment Spec In Lab Misty De Guzman MD URINE ORDERABLES DERICK KRAFTIUM * POCT Glucose (02/09/2014 7:21 PM EDT) POC Glucose 116 60 - 199 mg/dL CERNER MILLENNIUM Comment: Supplemental ranges: <110 mg/dL before meals <200 mg/dL all other times of the day Blood specimen (specimen) 02/09/2014 7:21 PM EDT 02/09/2014 7:21 PM EDT Misty De Guzman MD POINT OF CARE TEST ORDERABLES DERICK KRAFTIUM * (ABNORMAL) Differential, Automated (02/09/2014 5:05 PM EDT) Pathologist [facility] Neutrophils % 78.6(H) 34.0 - 71.0 % [...] Abs 0.04 0.00 - 0.05 x10(3)/mc L [facility] Blood specimen (specimen) 02/09/2014 5:05 PM EDT 02/09/2014 5:14 PM EDT Misty De Guzman MD HEMATOLOGY ORDERABL ES Performing Organization Address [facility] de Phone Number [facility] JEFFREY * Antibody screen (02/09/2014 5:05 PM EDT) Ab Screen Interp Negative [facility] Expires at [id number] on: [id number] [facility] Blood specimen (specimen) 02/09/2014 5:05 PM EDT 02/09/2014 5:14 PM EDT Narrative Resulting Agency Comment Spec In Lab Misty De Guzman MD BLOOD BANK LAB ORDE ANGUS Performing Organization Address [facility] de Phone Number [facility] JEFFREY * ABO/Rh Typing (02/09/2014 5:05 PM EDT) Pathologist [facility] ABORH Type A Pos DERICK MURPHY Blood specimen (specimen) 02/09/2014 5:05 PM EDT 02/09/2014 5:14 PM EDT Narrative Resulting Agency Comment Spec In Lab Misty De Guzman MD BLOOD BANK LAB ORDE ANGUS Performing Organization Address [facility] de Phone Number [facility] * (ABNORMAL) Basic Metabolic Panel (non-fasting) (02/09/2014 5:05 PM EDT) Pathologist [facility] Glucose Lvl 144 60 - 199 mg/dL [facility] Comment:Diabetes: >=200 mg/d L plus symptoms BUN 30(H) 10 - 20 mg/dL [facility] Comment:result rechecked- MT F Creatinine 2.96(H) 0.80 - 1.50 mg/dL CERNER MILLENNIUM Comment: result rechecked- MTF Please note that the pediatric reference intervals supplied above were not validated at [facility]. Results from pediatric patients should be interpreted [...] MD CHEMISTRY ORDERABLE S DERICK MURPHY * APTT (02/09/2014 5:05 PM EDT) PTT 31 25 - 35 sec CERNER MILLENNIUM Comment: Recommended therapeutic PTT range for full dose unfractionated heparin is 80-114 seconds. Blood specimen (specimen) 02/09/2014 5:05 PM EDT 02/09/2014 5:14 PM EDT Narrative Resulting Agency Comment Spec In Lab Misty De Guzman MD HEMATOLOGY ORDERABL ES Performing Organization Address [facility] de Phone Number CERWALDO KRAFTIUM * (ABNORMAL) Prothrombin Time (02/09/2014 5:05 PM EDT) PT 16.3(H) 12.0 - 15.0 sec CERNER MILLENNIUM Comment: [facility] Transfusion Committee Guidelines: INR less than [...] MD HEMATOLOGY ORDERABL ES Performing Organization Address [facility] de Phone Number CERWALDO MURPHYENNIUM * (ABNORMAL) CBC (with Diff) (02/09/2014 5:05 [...] MILLENNIUM MPV 9.7 9.0 - 12.0 fL CERWALDO MURPHYENNIUM Blood specimen (specimen) 02/09/2014 5:05 PM EDT 02/09/2014 5:14 PM EDT Narrative Resulting Agency Comment Spec In Lab Misty De Guzman MD HEMATOLOGY ORDERABL ES Performing Organization Address [facility] Co de Phone Number DERICK MURPHY * POCT Glucose (02/09/2014 5:05 PM EDT) POC Glucose 132 60 - 199 mg/dL CERWALDO MILLENNIUM Comment: Supplemental ranges: <110 mg/dL before meals <200 mg/dL all other times of the day Blood specimen (specimen) 02/09/2014 5:05 PM EDT 02/09/2014 5:05 PM EDT Misty De Guzman MD POINT OF CARE TEST ORDERABLES Performing Organization Address [facility] de Phone Number DERICK MURPHY * XR Fluoro Upper GI Small Bowel (02/09/2014 3:50 PM EDT) Anatomical Region Laterality Modality N/A Radiographic Sia ging 02/09/2014 3:50 PM EDT Narrative 02/10/2014 12:05 PM EDT Examination UGI W/SMALL BOWEL FOLLOW THROU Clinical History s/p gastric bypass, eval GJ and JJ anastomoses Comparison None Technique Rn Progressive Care views of the abdomen. Oral administration of [...] of a moderate dilatation of the efferent Monica-en-Y limb. Uncertain whether at the end of [...] GJ and JJ anastomoses Comparison None Technique Rn Progressive Care views of the abdomen. Oral administration of [...] of a moderate dilatation of the efferent Monica-en-Y limb. Uncertain whether at the end of [...] reviewed by the attending Homero Gonzales MD [facility] CAROLIN GRECO * POCT Glucose (02/09/2014 11:56 AM EDT) POC Glucose 162 60 - 199 mg/dL [facility] Comment: Supplemental ranges: <110 mg/dL before meals <200 mg/dL all other times of the day Blood specimen (specimen) 02/09/2014 11:56 AM EDT 02/09/2014 11:56 AM EDT Misty De Guzman MD POINT OF CARE TEST ORDERABLES Performing Organization Address [facility] de Phone Number [facility] * POCT Glucose (02/09/2014 7:19 AM EDT) POC Glucose 182 60 - 199 mg/dL [facility] Comment: Supplemental ranges: <110 mg/dL before meals <200 mg/dL all other times of the day Blood specimen (specimen) 02/09/2014 7:19 AM EDT 02/09/2014 7:19 AM EDT Misty De Guzman MD POINT OF CARE TEST ORDERABLES Performing Organization Address [facility] de Phone Number [facility] * POCT Glucose (02/09/2014 4:53 AM EDT) POC Glucose 159 60 - 199 mg/dL [facility] Comment: Supplemental ranges: <110 mg/dL before meals <200 mg/dL all other times of the day Blood specimen (specimen) 02/09/2014 4:53 AM EDT 02/09/2014 4:53 AM EDT Misty De Guzman MD POINT OF CARE TEST ORDERABLES Performing Organization Address [facility] de Phone Number [facility] * (ABNORMAL) Differential, Automated (02/09/2014 4:37 AM EDT) Neutrophils % 80.9(H) 34.0 - 71.0 % [facility] Neutr Abs (ANC) 10.39(H) 1.50 - 6.30 [...] EDT Homero Gonzales MD HEMATOLOGY SANDY GRECO DERICK MURPHYENNIUM * Scan, Peripheral Blood (02/09/2014 4:37 AM EDT) Plat Estimate Normal CERNER MILLENNIUM RBC Morphology Abnormal CERNE R MILLENNIUM Ovalocytes 1-5 /HPF CERNER MILLENNIUM Blood specimen (specimen) 02/09/2014 4:37 AM EDT 02/09/2014 5:07 AM EDT Narrative Resulting Agency Comment Spec In Lab Homero Gonzales MD HEMATOLOGY ORDE RABLES [facility] * Phosphorus (02/09/2014 4:37 AM EDT) Phosphorus 4.5 2.5 - 4.5 mg/dL [facility] Blood specimen (specimen) 02/09/2014 4:37 AM EDT 02/09/2014 5:07 AM EDT Narrative Resulting Agency Comment Spec In Lab Homero Gonzales MD CHEMISTRY ORDER RICCARDO Performing Organization Address City/[facility]/ZIP Co de Phone Number [facility] * Magnesium (02/09/2014 4:37 AM EDT) Magnesium 0.75 0.69 - 1.07 mmol/L [facility] Blood specimen (specimen) 02/09/2014 4:37 AM EDT 02/09/2014 5:07 AM EDT Narrative Resulting Agency Comment Spec In Lab Homero Gonzales MD CHEMISTRY ORDER RICCARDO Performing Organization Address [facility] Co de Phone Number [facility] * (ABNORMAL) Glucose, fasting (02/09/2014 4:37 AM EDT) Glucose Fasting 176(H) 65 - 99 mg/dL [facility] Comment: ?Fasting* Glucose Interpretive Criteria Normal ?65-99 [...] of Diabetes Mellitus, Position Statement from the [place] [employer]. ??Diabetes Care, Volume 33, Supplement 1, Oct 2009 Blood specimen (specimen) 02/09/2014 4:37 AM EDT 02/09/2014 5:07 AM EDT Narrative Resulting Agency Comment Spec In Lab Homero Gonzales MD CHEMISTRY ORDER RICCARDO Performing Organization Address City/[facility] Co de Phone Number [facility] * Creatinine (02/09/2014 4:37 AM EDT) Creatinine 1.13 0.80 - 1.50 mg/dL [facility] Comment: Please note that the pediatric reference intervals supplied above were not validated at [facility]. Results from pediatric patients should be interpreted in conjunction to the patient's age, height and muscle mass. Estimated GFR >60 >=60 [facility] Comment: This estimated GFR (eGFR) value [...] MD CHEMISTRY ORDER RICCARDO Performing Organization Address City/[facility]/ZIP Co de Phone Number [facility] * BUN (02/09/2014 4:37 AM EDT) BUN 18 10 - 20 mg/dL [facility] M[facility] Blood specimen (specimen) 02/09/2014 4:37 AM EDT 02/09/2014 5:07 AM EDT Narrative Resulting Agency Comment Spec In Lab Homero Gonzales MD CHEMISTRY ORDER RICCARDO CERNER MILLENNIUM * Electrolytes panel (02/09/2014 4:37 AM EDT) Pathologist [facility] Sodium 139 135 - 145 mmol/L CERNER [...] MD CHEMISTRY ORDER RICCARDO Performing Organization Address [facility] Co de Phone Number CERNER MILLENNIUM * (ABNORMAL) CBC (with Diff) (02/09/2014 4:37 AM EDT) Pathologist [facility] WBC 12.8(H) 4.0 - 10.0 x10(3)/mcL CERNER MILLENNIUM RBC 4.31(L) 4.63 - 6.08 x10(6)/mcL CERNER MILLENNIUM Hemoglobin 12.7(L) 13.7 - 17.5 gm/dL CERNER MILLENNIUM Hematocrit 38.6(L) 40.0 - 51.0 % CERNER MILLENNIUM MCV 89.6 79.0 - 92.0 fL CERNER MILLENNIUM MCH 29.5 25.6 - 32.2 pg CERNER MILLENNIUM MCHC 32.9 32.0 - 36.5 gm/dL CERNER MILLENNIUM Platelets 249 145 - 370 x10(3)/mcL CERNER MILLENNIUM RDWSD 46.6(H) 35.0 - 46.0 fL CERNER MILLENNIUM RDWCV 14.2 10.9 - 14.4 % [facility] MPV 9.9 9.0 - 12.0 fL [facility] Blood specimen (specimen) 02/09/2014 4:37 AM EDT 02/09/2014 5:07 AM EDT Narrative Resulting Agency Comment Spec In Lab Homero Gonzales MD HEMATOLOGY SANDY GRECO Performing Organization Address [facility] Co de Phone Number [facility] * POCT Glucose (02/09/2014 12:26 AM EDT) POC Glucose 165 60 - 199 mg/dL [facility] Comment: Supplemental ranges: <110 mg/dL before meals <200 mg/dL all other times of the day Blood specimen (specimen) 02/09/2014 12:26 AM EDT 02/09/2014 12:26 AM EDT Misty De Guzman MD POINT OF CARE TEST ORDERABLES Performing Organization Address [facility] de Phone Number [facility] * POCT Glucose (02/08/2014 7:01 PM EDT) POC Glucose 152 60 - 199 mg/dL [facility] Comment: Supplemental ranges: <110 mg/dL before meals <200 mg/dL all other times of the day Blood specimen (specimen) 02/08/2014 7:01 PM EDT 02/08/2014 7:01 PM EDT Misty De Guzman MD POINT OF CARE TEST ORDERABLES Performing Organization Address [facility] de Phone Number [facility] * POCT Glucose (02/08/2014 3:23 PM EDT) POC Glucose 175 60 - 199 mg/dL [facility] Comment: Supplemental ranges: <110 mg/dL before meals <200 mg/dL all other times of the day Blood specimen (specimen) 02/08/2014 3:23 PM EDT 02/08/2014 3:23 PM EDT Misty De Guzman MD POINT OF CARE TEST ORDERABLES Performing Organization Address [facility] Phone Number [facility] * POCT Glucose (02/08/2014 9:29 AM EDT) POC Glucose 133 60 - 199 mg/dL [facility] Comment: Supplemental ranges: <110 mg/dL before meals <200 mg/dL all other times of the day Blood specimen (specimen) 02/08/2014 9:29 AM EDT 02/08/2014 9:29 AM EDT Misty De Guzman MD POINT OF CARE TEST ORDERABLES Performing Organization Address [facility] Phone Number [facility] * Prothrombin Time (02/08/2014 8:34 AM EDT) PT 15.0 12.0 - 15.0 sec [facility] Comment: [facility] Transfusion Committee Guidelines: INR less than 2.0, PTT less than OR equal to 43.5 seconds, or Fibrinogen greater than or equal to 100 mg/dl indicate adequate procoagulant activity for hemostasis in patients without underlying bleeding disorders. INR 1.1 0.9 - 1.1 [facility] Blood specimen (specimen) 02/08/2014 8:34 AM EDT 02/08/2014 8:38 AM EDT Narrative Resulting Agency Comment Spec In Lab Misty De Guzman MD HEMATOLOGY ORDERABL ES Performing Organization Address [facility] Phone Number DERICK MUPRHY documented in this encounter Visit Diagnoses Not on filedocumented in this encounter Administered Medications Inactive Administered Medications - up to 3 most recent administrations Medication Order MAR Action Action Date Dose Rate Site thrombn (Hum Plas)-Fib-Apro-Ca (TISSEEL VHSD) 10 mL topical syringe ONCE PRN, Starting on Sat02/10/14 at 1126, Until Sat02/12/14 at 1450, Intra-Operative (Intra-Procedure), Routine Given 02/10/2014 11:26 AM EDT 10 mLs documented in this encounter Active and Recently [...] Duckworth RN) 0604 (Given - Provider: Bari Gucci, RN)1147 (Given - Provider: Ora Vela, FRACISCO) [...] not met)1235 (Given - Provider: Ora Vela, RN) magnesium sulfate 2 g in sterile [...] Admin Adt)2114 (Given - Provider: Mikayla Lincoln, RN) 0800 (Given - Provider: Demi Jung, RN)2019 [...] RN) 0439 (Rate/Dose Verify - Provider: Mikayla Linconl, FRACISCO)0638 (New Bag - Provider: Mary Hou, FRACISCO)0745 (Rate/Dose Change - Provider: Demi Jung, FRACISCO)1928 (Rate/Dose Verify - Provider: Bari Duckworth, RN) 0034 (New Bag - Provider: Bari Duckworth, RN)0633 (Stopped - Provider: Bari Duckworth, RN) HYDROmorphone (DILAUDID) 1 mg/mL BINGO CLERK 30 mL (CANCELED) Intravenous, BINGO CLERK ONLY, Starting on 02/08/14 at 1545, Until [...] MD) documented in this encounter Care Teams Central Office Equipment Installer Relationship Specialty Start Date End Date Manolo Castro MD [address] [place] [id number] PCP - General 05/14/12 04/21/17 documented as of this encounter
--- OUTSIDE RECORDS SUMMARY | 2024-04-27 14:56 | XMS_ITS | Encounter Summary ---
Author Organization [facility] [place] [address] Care Team Providers Care Vice President Quality Name Role Phone Manolo Castro MD Primary Care Provider [phone] Reason for Visit * Reason Comments Patient Education Bariatric Surgery Pr ogram preoperative class Encounter Details Date Type Department Care Team ([facility] Contact Info) Description 01/28/2014 12:30 PM EDT Office [place] [address] Narda Allen, MACHINE RIVETER [facility] [place] [address] Elevated TSH; Morbid obesity; Hypertension; Type 2 diabetes mellitus; Obstructive sleep apnea (adult) (pediatric) Discharge Disposition: Home Social History Tobacco Use [...] this encounter Patient Instructions * Patient Instructions* Narda Allen - 01/27/2014 9:34 PM EDT BARIATRIC SURGERY DISCHARGE INFORMATION CONTACT INFORMATION: [phone] Surgeons: Cyndi Lujan Laycock and [place] [phone] Waiter/Waitress Take Out: [phone] (Saturday through Saturday, 8:00 AM -5:00 PM) Dietitian: [phone] Non-business hours: [phone], ask for general surgeon it communications manager FOR EMERGENCIES: CALL 911 (trouble breathing, chest pain, severe abdominal pain or rapid heart beat>120 (30 beats in 15 seconds) CALL FOR ANY OF THE FOLLOWIN. Signs and symptoms of infection such as: o Redness or swelling o Drainage or bleeding o Fever over 100.5 F o Increased pain or discomfort at the incision site ?? Persistent vomiting or if you are unable to keep food or fluids down in a 24 hour period. ?? Signs and symptoms of a blood clot: new leg swelling or redness, pain in leg, shortness of breath ?? Any concerns, such as problems with urination, bowels, bleeding, pain or leg swelling BATHING AND WOUND CARE: You may shower at 2 days post-op. ?? Wash incisions with soap, water rinse, pat dry and leave open to air if not draining. ?? Steri-strips may be removed or will fall off in 5 days. Pat dry if they become wet. ?? Do not soak wound for 2 weeks after laparoscopic surgery and 3 weeks after open surgery. ACTIVITY, LIFTING AND DRIVING: Daily walking is encouraged as tolerated. ?? For laparoscopic surgery: there are no lifting restrictions. ?? For all patients: Do not drive for 2 weeks. After [address] when comfortable and not takingnarcotic pain medicine. DIET: follow Stage II diet for three weeks. ?? Log intake. Daily goals are: 48-64 ounces of fluids and 60 grams of protein. MEDICATIONS: For 2 WEEKS ONLY: LARGE pills (bigger than the size of a calcium pill) must be crushed, or broken into small pieces. ?? Pills smaller than the size of a Tylenol DO NOT need to be crushed. Not all medications can be crushed. Check with your pharmacist first. BLOOD CLOT PREVENTION: make sure to be active, walking at least 4 times a day. ?? You WILL be discharged on enoxaparin injections. There are special instructions for your coumadin, per the Thrombosis Clinic- please follow the instructions written at discharge. POST PROCEDURE RECOMMENDATIONS: DAY 0 Administer enoxaparin 40 mg SQ at the the induction of anesthesia and continue with enoxaparin 40 mg SQ, twice daily. Resume previous outpatient dose of warfarin 6 to 12 hours after procedureat discretion of attending surgeon based on achievement of satisfactory hemostasis. POD#1: enoxaparin 40 mg SQ, twice daily and warfarin PO at previous outpatient dose Day 2: enoxaparin 40 mg SQ, twice daily and warfarin PO at previous outpatient dose Day 3: enoxaparin 40 mg SQ twice daily and warfarin PO at previous outpatient dose Day 4: Check INR. Once target INR range is achieved (> 2.0) , discontinue enoxaparin and continue maintenance warfarin. If INR remains subtheraputic, maintain schedule for two to three more days and check again. ULCER PREVENTION: omeprazole 20 mg daily (or any medication you may currently take for heartburn/reflux) must be taken for 3 MONTHS after surgery: Take this to prevent ulcers, even if you do not haveheartburn. The prescription may be refilled after the 3 month course if you have heartburn or reflux GALLSTONE PREVENTION: (ONLY if you have a gallbladder): ?? Take Ursodiol (Actigall) 300 mg twice a day. START: 2 weeks after surgery, take for 6 months then stop unless otherwise directed. PAIN MEDICATION: Take pain medicine as NEEDED for pain. ?? For mild pain, acetaminophen (Tylenol) is recommended. MEDICATIONS TO AVOID FOR TWO MONTHS AFTER SURGERY: ?? Avoid anti-inflammatory non-steroidal medications, such as Advil, Aleve, etc. Refer to Medications that may increase the risk of bleeding in handbook. ?? If you take aspirin for your heart or to prevent strokes, continue as prescribed. PATIENTS WITH DIABETES: Check blood sugars four times a day, fasting, 2 hours after meals and if unwell. For blood sugar less than 150, do not restart diabetes medications. ?? Patients on oral diabetic medication: If blood sugar is over 200 on more than 3 rechecks, call your primary care physician or diabetic specialist for specific recommendations, or as recommended atdischarge. ?? Follow up with primary care doctor or drug regulatory affairs specialist in 1-2 weeks. Bring meter to appointments. PATIENTS WITH HIGH BLOOD PRESSURE: Monitor your blood pressure regularly. ?? If you feel dizzy and have been drinking 48-64 ounces of fluid, have your blood pressure checked. ?? If your blood pressure is low, call your primary care provider. Keep a log to bring to your PCP appointments. VITAMIN AND MINERAL SUPPLEMENTATION: Vitamin B12 1000 mcg sublingual (under tongue) twice a week OR 500 mcg pill daily. Complete multivitamin w/ minerals Chewable, one pill daily. After 2 weeks may take regular vitamin pills. Calcium Calcium citrate 600 mg with vitamin D 400 units twice a day between meals. Iron with vitamin C Take iron as instructed per Handbook- (only if you have anemia, iron deficiencyor regular menses) FOLLOW-UP CARE: ?? See your PCP 10-14 days after surgery for wound and vital signs check. ?? See your surgeon and dietitian at 3 weeks after surgery ?? See the dietitian and nurse practitioner at 4, 12, 18, and 24 months, then yearly for life. documented in this encounter Progress Notes * Rowan Deutsch RD - 01/28/2014 11:43 AM EDT Eugene attended a comprehensive two hour pre-operative class today, which included discussion of pre and post operative instructions included in the [facility] B[facility] Education Handbook.One hour of today's group visit was spent in review of dietary and post op vitamin and mineral supplementation. Some of the topics reviewed today included: pre-operative and post-operative dietary recommendations post-op vitamin and mineral supplementation Eugene appeared to have a good understanding of the information presented, and asked appropriate questions. All his questions were answered. * Narda Allen - 01/27/2014 9:27 PM EDT Eugene attended a comprehensive two hour pre-operative class today, which included discussion of pre and post operative instructions included in the [facility] Education Handbook.The one hour nutrition component of the class was taught by the BSP RD. Lab was not done as requested at today's visit for CBC and CMP per ACS guidelines, message left forhim to have done locally OR date: 02/08/14. Takedown of afsaneh fundoplication, conversion to sleeve gastrectomy with Dr Pfeiffer Individualized plan of care: ?? CPAP use during hospital stay ?? Close blood pressure/ glucose/INR monitoring post discharge Recommendations for post discharge VTE prophylaxis (unless change in condition during hospitalization that would contraindicate treatment): per Thrombosis Clinic recommendations POST PROCEDURE RECOMMENDATIONS: DAY 0 Administer enoxaparin 40 mg SQ at the the induction of anesthesia and continue with enoxaparin 40 mg SQ, twice daily. Resume previous outpatient dose of warfarin 6 to 12 hours after procedureat discretion of attending surgeon based on achievement of satisfactory hemostasis. POD#1: enoxaparin 40 mg SQ, twice daily and warfarin PO at previous outpatient dose Day 2: enoxaparin 40 mg SQ, twice daily and warfarin PO at previous outpatient dose Day 3: enoxaparin 40 mg SQ twice daily and warfarin PO at previous outpatient dose Day 4: Check INR. Once target INR range is achieved (> 2.0) , discontinue enoxaparin and continue maintenance warfarin. If INR remains subtheraputic, maintain schedule for two to three more days and check again. Prescriptions faxed to pharmacy: Ursodiol 300 mg BID x 6 months, to start at 2 weeks post-operatively for cholelithiasis prevention Omeprazole (or equivalent) 20 mg once daily x 3 months, to start upon discharge for ulcer prevention OTC Vitamin and mineral supplements required post discharge: ?? Multivitamin with minerals once daily ?? Vitamin B12 500 mcg by mouth once daily ?? Calcium citrate 600 mg with Vitamin D 400 units twice daily Bariatric Surgery Program Pathway and review of status with the requirements of the Bariatric Surgery Program 1. Education: He previously attended a Introduction to the [facility] B[facility] seminar,a two hour meeting that provides a program overview as well as expectations. The [facility] B[facility] Educational seminar requirement (3 seminars with post-testing) has been met. The [facility] Educational Handbook was provided at visit #1. 2. Pre-operative programmatic evaluations have been done, as noted in previous pathway review. 3. Bariatric Surgery Program evaluations with RD and MATERIALS AND PROCESSES MANAGER have taken place, as noted in previous pathway documentation 4. Weight requirements have been achieved and documented. 5. All pre-operative requirements were achieved. 6. Surgical consultation has taken place, and he has been approved to proceed with surgery by surgeon and insurer. Next steps in pathway: ?? During hospitalization for bariatric surgery, a standard bariatric surgery order set is followed. ?? Routine post-operative follow up with labwork is done at months 1,4,12,18 and 24, yearly thereafter, and PRN. High risk patients are followed more frequently. Some of the topics reviewed during group discussion today included: ?? day of surgery and post-op routine care/ locations: Admissions/SDP/PACU///2 [facility] units ?? medications that increase the risk of bleeding including NSAIDS, ASA and Plavix to be avoided per guidelines pre and post-operatively ?? DVT/VTE prevention and signs of DVT/PE. ?? Inpatient management for VTE prevention: venodynes, ambulation, Enoxaparin 40 units BID during inpatient stay. ?? Indications for extended Enoxaparin 10 days post discharge: A. patients with BMI >60 or prior VTE OR B. 2 or more of the following: age >50, BMI >50, male gender, sleep apnea, varicose veins, venous insufficiency, history of oral contraceptive or hormone or post-menopausal hormone replacement use within 30 days of surgery, and recent smoking ?? guidelines for patients on Coumadin per prescribing physician or Anticoagulation Clinic ?? diabetes and hypertension monitoring post-operatively ?? signs and symptoms of infection as well as emergency signs and symptoms ?? common post-operative complaints ?? management of sleep apnea during hospitalization and post operatively. The importance of post-operative follow-up with [facility] Center after weight loss was stressed. ?? recommendations for psychiatric medications: should continue uninterrupted after surgery ?? activity post surgery/ return to work recommendations ?? pre-operative and post-operative dietary recommendations post-op vitamin and mineral supplementation routine [facility]SP post-operative follow-up: 3 weeks. 4, 12,18, 24 months and yearly for LIFE routine Primary Care post-operative follow up: at 10-14 days after surgery to monitor chronic health problems such as diabetes and hypertension, since the requirement for antihypertensive and diabetic medications may decrease or be discontinued A preliminary copy of the discharge instructions was provided, which is also available in the patient handbook. Eugene appeared to have a good understanding of the information presented, and asked appropriate questions. He satisfactorily completed the post-test administered, and achieved a grade of 100%. All his questions were answered. Time spent in individual counseling and coordination of care: 5 minutes Time spent in group counselin minutes documented in this encounter Plan of Treatment Upcoming Encounters Date Type Department Care Team (Late st Contact Info) Description 05/15/2024 10:00 AM EDT [place] [address] Catrachito Mehta MD [facility] [place] [address] documented as of this encounter Visit Diagnoses Diagnosis Elevated TSH Other abnormal blood chemistry Morbid obesity Hypertension Unspecified essential hypertension Type 2 diabetes mellitus Type II or unspecified type diabetes mellitus without mention of complication, not stated as uncontrolled Obstructive sleep apnea (adult) (pediatric) documented in this encounter Care Teams Vice President Quality Relationship Specialty Start Date End Date Manolo Castro MD [address] [place] [address] PCP - General 05/14/12 04/21/17 documented as of this encounter
--- OUTSIDE RECORDS SUMMARY | 2024-04-27 14:56 | XMS_ITS | Encounter Summary ---
Author Organization [facility] Address [facility] [place] [address] Care Team Providers Care Steamtable Worker Name Role Phone Manolo Castro MD Primary Care Provider [phone] Encounter Details Date Type Department Care Team (Latest Contact Info) Description 11/18/2013 2:09 PM EST - 11/18/2013 11:59 PM EST Hospital Encounter Non-Invasive [place] [address] CARDIO, ECHO SIXTY MIN APPT None Luis M Fong MD [facility] [place] [address] Atrial fibrillation Discharge Disposition: Home Social History Tobacco Use Types Packs/Day Years Used Date Smoking Tobacco: Never Smokeless Tobacco: Never Alcohol Use Standard Drinks/Week Comments No 0 (1 standard drink = 0.6 oz pur e alcohol) Sex and Gender Information Value Date Recorded Sex Assigned at Not on file Gender Identity Not on file Sexual Orientation Not on file documented as of this encounter Medications at Time of Discharge Medication Sig Dispensed Refills Start Date End Date terazosin (HYTRIN) 2 mg capsule Take 2 mg by mouth nightly. lovastatin (MEVACOR) 20 mg tablet 04/24/2010 GLYBURIDE ORAL Take by mouth 2 times daily. 05/07/2014 DILTiazem (DILACOR XR) 240 mg 24 hr capsule Take 240 mg by mouth daily. 02/12/2014 ramipril (ALTACE) 10 mg capsule Take 10 mg by mouth daily. 12/08/2015 ibuprofen (ADVIL;MOTRIN) 400 mg tablet Take 400 mg by mouth as needed. Rarely takes for back pain 05/07/2014 metFORMIN (GLUCOPHAGE) 500 mg tablet Take 1,000 mg by mouth 2 times daily (with meals). 03/25/2019 venlafaxine (EFFEXOR-XR) 75 mg 24 hr capsule Take 75 mg by mouth daily. 02/12/2014 warfarin (COUMADIN) 5 mg tablet 04/24/2010 02/12/2014 documented as of this encounter Plan of Treatment Upcoming Encounters Date Type Department Care Team (Late st Contact Info) Description 05/15/2024 10:00 AM EDT [place] [id number] Catrachito Mehta MD [facility] [place] [address] documented as of this encounter Procedures Procedure Name Priority Date/Time Associated Diagnosis Comments ECHOCARDIOGRAM TRANSTHORACIC Routine 11/18/2013 3:14 PM EST Atrial fibrillation documented in this encounter Results * Echocardiogram Transthoracic(Leb) (11/18/2013 3:14 PM EST) EF 60 HEARTLAB SYSTEM Anatomical Region Laterality Modality Other 11/18/2013 Narrative 11/18/2013 3:46 PM EST Procedure: ? Transthoracic Echocardiogram Patient: ? YANIV NAVARRO J ?(Age): 1950(62) Med Rec#: ?[id number] ? Sex: ?M ? Site Loc: ?[facility] [place] ? Ht / Wt: ??175.3(cm)/112.4 Pt. Loc: ? Echo Lab ? BSA: ?2.26 Study Date: ?11/18/2013 ? Pt. Type: Outpatient Tape: ? Referring: Luis M Fong Home Theater Experience Expert: [employer] Professor: Milka Hope Diagnosis: ??Atrial Fibrillation (427.31) CPT Code(s): ??Echo Full (84575), ??Spectral Doppler (04328), ??Color Doppler (31684), ??Definity (10202XX), Indication(s):Rhythm: HR ?BP ?152/74 ?? SUMMARY: 1. Technically difficult study. ??Intravenous echo [...] See remainder of report for additional findings. FINDINGS: Study Quality ?Technically limited Left Ventricle ?Left ventricular chamber size, wall thickness, global and segmental systolic function are within normal limits. Ejection fraction is estimated to be 60%. ?There are no left ventricular segmental wall motion abnormalities. ?Doppler assessment is consistent with normal left sided filling pressure. Left Atrium ?The left atrium is moderately dilated. Right Ventricle ?Right ventricular chamber size, wall thickness, and systolic function are within normal limits. ?The estimated pulmonary artery systolic pressure is 34 mmHg. Right Atrium ?The right atrium is moderately dilated. Aortic Valve ?The aortic valve is tricuspid. ?Mild aortic leaflet calcification is visualized. ?There is no evidence of aortic valve stenosis. ?There is no evidence of aortic regurgitation. Mitral Valve ?The mitral valve appears normal in structure and function. ?There is mild (1+/4+) mitral regurgitation present. Tricuspid Valve ?The tricuspid valve appears normal in structure and function. ?There is mild (1+/4+) tricuspid regurgitation present. Pulmonic Valve ?The pulmonic valve appears normal in structure and function. Pericardium ?The pericardium appears normal and there is no evidence of a pericardial effusion. Aorta ?The aortic root is normal in size. ?The ascending aorta is normal in size. Pulmonary Artery ?The main pulmonary artery appears normal. Venous ?The inferior vena cava is poorly visualized. Misc ?See remainder of report for additional findings. ?Two-dimensional echo, spectral Doppler and color Doppler performed. Wall Motion: Segment Name ?Rest ? Base-Anteroseptal ?? Normal ? Base-Anterior ? Normal ? Base-Anterolateral ??Normal ? Base-Posterolateral Normal ? Base-Inferior ? Normal ? Base-Inferoseptal ?? Normal ? Mid-Anteroseptal ?Normal ? Mid-Anterior ?Normal ? Mid-Anterolateral ?? Normal ? Mid-Posterolateral ??Normal ? Mid-Inferior ?Normal ? Mid-Inferoseptal ?Normal ? [place]-Septal ? Normal ? [place]-Anterior ? Normal ? [place]-Lateral ?Normal ? [place]-Inferior ? Normal ? [place]-Tip ?Normal ? Chambers ?Value ?Units (Range) ? LV EF Est ? 60 ? % (55 to 80) ? IVSd 2D ? 1.4 ?cm ? LVIDd 2D ?4 ?cm ? PWd 2D ?1.4 ?cm ? LVIDs 2D ?2.8 ?cm ? LVFS 2D ? 30 ? % ? LA area ? 32 ? cm2 (<21) ? RA area ? 27 ? cm2 (<18) ? Ao root ? 3 ?cm (2.1 to 3.6) ? Asc Ao ?2.6 ?cm (2 to 3.5) ? Mitral Valve ?Value ?Units (Range) ? E peak ?1 ?m/sec ? E1 ?0.1 ?m/sec ? E/E1 ?10 ? ratio ? Tricuspid/Pulmonic Valves ?Value ?Units (Range) ? TR peak cezar ? 2.7 ?m/sec ? RAP ? 5 ?mmHg ? RVSP/PASP ? 34 ? mmHg ? This report has been electronically signed by: Moris Hargrove MD ? 11/18/2013 15:45:20 Images reviewed and interpretation verified [facility] Cardiac Ultrasound Laboratory Procedure Note Moris Harrgove MD - 11/18/2013 Procedure: Transthoracic Echocardiogram Patient: YANIV LADD(Age): 1950(62) Med Rec#: [id number] Sex: M Site Loc: [facility] [place] Ht / Wt: 175.3(cm)/112.4 Pt. Loc: Echo Lab BSA: 2.26 Study Date: 11/18/2013 Pt. Type: Outpatient Tape: Referring: Luis M Fong Home Theater Experience Expert: [employer] Professor: Milka Hope Diagnosis: Atrial Fibrillation (427.31) CPT Code(s): Echo Full (17298), Spectral Doppler (38270), Color Doppler (19864), Definity (19096AO), Indication(s):Rhythm: HR BP 152/74 SUMMARY: 1. Technically difficult study. Intravenous echo contrast was administered to enhance endocardial border definition. 2. Left ventricular chamber size, wall thickness, global and segmental systolic function are within normal limits. Ejection fraction is estimated to be 60%. 3. The left atrium is moderately dilated. The right atrium is moderately dilated. 4. There is mild (1+/4+) mitral regurgitation present. 5. There is mild (1+/4+) tricuspid regurgitation present. 6. See remainder of report for additional findings. FINDINGS: Study Quality Technically limited Left Ventricle Left ventricular chamber size, wall thickness, global and segmental systolic function are within normal limits. Ejection fraction is estimated to be 60%. There are no left ventricular segmental wall motion abnormalities. Doppler assessment is consistent with normal left sided filling pressure. Left Atrium The left atrium is moderately dilated. Right Ventricle Right ventricular chamber size, wall thickness, and systolic function are within normal limits. The estimated pulmonary artery systolic pressure is 34 mmHg. Right Atrium The right atrium is moderately dilated. Aortic Valve The aortic valve is tricuspid. Mild aortic leaflet calcification is visualized. There is no evidence of aortic valve stenosis. There is no evidence of aortic regurgitation. Mitral Valve The mitral valve appears normal in structure and function. There is mild (1+/4+) mitral regurgitation present. Tricuspid Valve The tricuspid valve appears normal in structure and function. There is mild (1+/4+) tricuspid regurgitation present. Pulmonic Valve The pulmonic valve appears normal in structure and function. Pericardium The pericardium appears normal and there is no evidence of a pericardial effusion. Aorta The aortic root is normal in size. The ascending aorta is normal in size. Pulmonary Artery The main pulmonary artery appears normal. Venous The inferior vena cava is poorly visualized. Misc See remainder of report for additional findings. Two-dimensional echo, spectral Doppler and color Doppler performed. Wall Motion: Segment Name Rest Base-Anteroseptal Normal Base-Anterior Normal Base-Anterolateral Normal Base-Posterolateral Normal Base-Inferior Normal Base-Inferoseptal Normal Mid-Anteroseptal Normal Mid-Anterior Normal Mid-Anterolateral Normal Mid-Posterolateral Normal Mid-Inferior Normal Mid-Inferoseptal Normal [place]-Septal Normal [place]-Anterior Normal [place]-Lateral Normal [place]-Inferior Normal [place]-Tip Normal Chambers Value Units (Range) LV EF Est 60 % (55 to 80) IVSd 2D 1.4 cm LVIDd 2D 4 cm PWd 2D 1.4 cm LVIDs 2D 2.8 cm LVFS 2D 30 % LA area 32 cm2 (<21) RA area 27 cm2 (<18) Ao root 3 cm (2.1 to 3.6) Asc Ao 2.6 cm (2 to 3.5) Mitral Valve Value Units (Range) E peak 1 m/sec E1 0.1 m/sec E/E1 10 ratio Tricuspid/Pulmonic Valves Value Units (Range) TR peak cezar 2.7 m/sec RAP 5 mmHg RVSP/PASP 34 mmHg This report has been electronically signed by: Moris Hargrove MD 11/18/2013 15:45:20 Images reviewed and interpretation verified [facility] Cardiac Ultrasound Laboratory Luis M Fong MD ECHO ORDERABLES documented in this encounter Visit Diagnoses Diagnosis Atrial fibrillation documented in this encounter Administered Medications Inactive Administered Medications - up to 3 most recent administrations Medication Order MAR Action Action Date Dose Rate Site perflutren lipid microspheres (DEFINITY) injection 0.5 mL 0.5 mL, Intravenous, ONCE PRN, 1 dose, Starting on Sat11/18/13 at 1520, Until Sat11/18/13 at 1500, Other, Routine Given 11/18/2013 3:00 PM EST 0.5 mLs documented in this encounter Care Teams Steamtable Worker Relationship Specialty Start Date End Date Manolo Castro MD [address] [place] [address] PCP - General 05/14/12 04/21/17 documented as of this encounter
--- OUTSIDE RECORDS SUMMARY | 2024-04-27 14:56 | XMS_ITS | Encounter Summary ---
Author Organization [facility] Address [facility] [place] [address] Care Team Providers Care Risk Assessment Consultant Name Role Phone Manolo Casrto MD Primary Care Provider [phone] Encounter Details Date Type Department Care Team (Late st Contact Info) Description 12/25/2013 9:36 AM EDT Anesthesia Event [place] [address] Demetrio Gutierrez MD [facility] [place] [address] Anesthesia Record Procedure Summary Procedure Name Responsible Anesthesiologist Anesthesia Start Time Anesthesia Stop Time EGD, UPPER GI ENDOSCOPY (WRVU 2.09) (Trunk) Demetrio Gutierrez MD 12/25/13 0936 12/25/13 0958 Events Date Time Event Comment 12/25/2013 0924 0936 Start 0939 AN Verify 0939 An Start Data 0942 Anesthesia Ready 0949 An Induction 0958 an stop data 0958 Stop Meds Name Total propofol 200 mg lactated ringers infusion 0 mL * Agents Name O2 Auxiliary Flowmeter 1 * Blood No blood administrations on file. Lines, Drains, and Airways Type Details Placement Removal Peripheral IV Line ([place], NICU) - Single Lumen 12/25/13; 0909; 12/25/13; 1058 12/25/13 0909 by Nora Villafuerte RN 12/25/13 1058 by Darlene Lowe RN documented in this encounter Social History [...] OR Notes * Anesthesia Postprocedure Evaluation - Demetrio Gutierrez MD - 12/25/2013 10:19 AM EDT Patient: Eugene Rueda Procedure(s) Performed: Procedure(s): EGD, UPPER GI ENDOSCOPY Actual Anesthetic: general, MAC Patient location: SDP Post-op pain: Adequate analgesia Post-op nausea: no nausea or vomiting Last Vitals: Filed Vitals: 12/25/13 1002 BP: 116/54 Pulse: 79 Temp: Resp: 16 Post-op cardiovascular and respiratory status: is stable Level of consciousness: awake and oriented Complications: no apparent complications and tolerated the procedure well Fluid Status: normal * Anesthesia Preprocedure Evaluation - Demetrio Gutierrez MD - 12/24/2013 8:15 PM EDT Pre-Anesthesia Evaluation for: Eugene Rueda a 63 y.o. male. Procedure(s): EGD, UPPER GI ENDOSCOPY Patient Active Problem List Diagnosis ??? Obesity [...] OR MULTIPLE performed by Wally Pfeiffer MDat [facility] END[facility] History Substance Use Topics ??? Smoking status: Never Smoker ??? Smokeless tobacco: Never Used ??? Alcohol Use: No Comment: 4x year History Drug Use No No Known Allergies Medications: MAR and/or home medications have been reviewed. Physical Exam: There were no vitals filed for this visit. There is no height or weight on file to calculate BMI. Airway Assessment: Mallampati: II TM distance: <3 FB Cardiovascular Assessment: Rhythm: irregular (-) murmur Pulmonary Assessment: breath sounds clear to auscultation Dental Assessment: - normal exam Misc Assessment: IV access: Peripheral line Anesthesia Plan: ASA 3 general and MAC, with a(n) intravenous induction 63 yro s/p afsaneh fundoplication being evaluated for bariatric surgery preesnting for UGI endoscopy. PMHx significant for A. Fib, chronic anticoagulation, AODM, HTN, sleep apnea, PVD and Hx asbestosis. NPO status confirmed-no po intake including no meds this AM. Denies active reflux symptoms. Plan: Deep sedation/[place] Region - Other Informed Consent: Anesthetic plan and risks discussed with patient. Use of blood products discussed with patient whom. Plan discussed with JEWELER APPRENTICE. Misc. Assessment: documented in this encounter Plan of Treatment Upcoming Encounters Date Type Department Care Team (Late st Contact Info) Description 05/15/2024 10:00 AM EDT Office [place] [address] Catrachito Mehta MD [facility] [place] [address] documented as of this encounter Visit Diagnoses Not on filedocumented in this encounter Administered Medications Inactive Administered Medications - up to 3 most recent administrations Medication Order MAR Action Action Date Dose Rate Site lactated ringers infusion 100 mL/hr, Intravenous, CONTINUOUS, Starting on Sat12/25/13 at 0915, Until Sat12/25/13 at 1058, Endoscopy (Intra-Procedure) New Bag 12/25/2013 9:36 AM EDT mL propofol (DIPRIVAN) 10 mg/mL bolus injection (Anesthesia) PRN, Starting on Sat12/25/13 at 0949, Until Sat12/25/13 at 0958, Anesthesia Intra-op Given 12/25/2013 9:49 AM EDT 130 mg Given 12/25/2013 9:48 AM EDT 70 mg documented in this encounter Care Teams Risk Assessment Consultant Relationship Specialty Start Date End Date Manolo Castro MD [address] [place] [address] PCP - General 05/14/12 04/21/17 documented as of this encounter
--- OUTSIDE RECORDS SUMMARY | 2024-04-27 14:56 | XMS_ITS | Encounter Summary ---
Author Organization [facility] Address [facility] [place] [address] Care Team Providers Care Equal Opportunity Assistant Name Role Phone Manolo Castro MD Primary Care Provider [phone] Encounter Details Date Type Department Care Team (Latest Contact Info) Description 05/14/2012 6:57 AM EDT - 05/14/2012 11:59 PM EDT Hospital Encounter XRay at [address] [place] [address] S/P knee replacement Social History Tobacco Use Types Packs/Day Years Used Date Smoking Tobacco: Never Assessed Sex and Gender Information Value Date Recorded Sex Assigned at Not on file Gender Identity Not on file Sexual Orientation Not on file documented as of this encounter Medications at Time of Discharge Medication Sig Dispensed Refills Start Date End Date lovastatin (MEVACOR) 20 mg tablet 04/24/2010 metFORMIN (GLUCOPHAGE) 500 mg tablet Take 1,000 mg by mouth 2 times daily (with meals). 03/25/2019 venlafaxine (EFFEXOR-XR) 75 mg 24 hr capsule Take 75 mg by mouth daily. 02/12/2014 ramipril (ALTACE) 10 mg capsule 04/24/2010 11/18/2013 warfarin (COUMADIN) 5 mg tablet 04/24/2010 02/12/2014 terazosin (HYTRIN) 2 mg capsule 04/24/2010 11/18/2013 DILTiazem (CARDIZEM CD) 240 mg 24 hr capsule 04/24/2010 014 documented as of this encounter Plan of Treatment Upcoming Encounters Date Type Department Care Team (Late st Contact Info) Description 05/15/2024 10:00 AM EDT [place] [address] Catrachito Mehta MD [facility] [place] [place] [address] documented as of this encounter Procedures Procedure Name Priority Date/Time Associated Diagnosis Comments XR KNEE AP AND LAT BILAT Routine 05/14/2012 7:07 AM EDT Knee joint replacement by other means documented in this encounter Results * XR KNEE BILATERAL1 OR 2 VIEW (05/14/2012 7:07 AM EDT) Anatomical Region Laterality Modality Knee Bilateral Radiographic Sia ging 05/14/2012 7:07 AM EDT Narrative 05/14/2012 11:32 AM EDT Examination KNEE BILATERAL 1 OR 2 VIEWS/BILAT Clinical History Reason for exam and clinical history: F/U MONTEZ TKR DOS 12/16/02; Comparison 2 views of the bilateral knees April 24, 2010. Technique 2 views of the bilateral knees. Findings Bilateral cemented total knee arthroplasties are in place. ??These are unchanged in appearance and alignment from prior. ??No periprosthetic fracture or new lucency is identified. Impression Unchanged bilateral total knee arthroplasties. Film and interpretation reviewed by the attending Procedure Note Momo Gallego MD - 05/14/2012 Examination KNEE BILATERAL 1 OR 2 VIEWS/BILAT Clinical History Reason for exam and clinical history: F/U MONTEZ TKR DOS 12/16/02; Comparison 2 views of the bilateral knees April 24, 2010. Technique 2 views of the bilateral knees. Findings Bilateral cemented total knee arthroplasties are in place. These areunchanged in appearance and alignment from prior. No periprosthetic fracture or new lucency is identified. Impression Unchanged bilateral total knee arthroplasties. Film and interpretation reviewed by the attending Meliton Rosen MD IMG DX ORDERABLES documented in this encounter Visit Diagnoses Diagnosis S/P knee replacement Knee joint replacement by other means documented in this encounter Care Teams Equal Opportunity Assistant Relationship Specialty Start Date End Date Manolo Castro MD [address] [place] [address] PCP - General 05/14/12 04/21/17 documented as of this encounter
--- OUTSIDE RECORDS SUMMARY | 2024-04-27 14:56 | XMS_ITS | Encounter Summary ---
Author Organization [facility] Address [facility] [place] [address] Care Team Providers Care Desktop Support Manager Name Role Phone Manolo Castro MD Primary Care Provider [phone] Encounter Details Date Type Department Care Team (Late st Contact Info) Description 12/11/2013 9:30 AM EST - 12/11/2013 10:00 AM EST [place] [address] Misty De Guzman MD [facility] [address] UPPER GASTROINTESTINAL ENDOSCOPY,WITH BIOPSY SINGLE OR MULTIPLE (WRVU 2.39) Social History Tobacco Use Types Packs/Day Years [...] Sign Reading Time Taken Comments Blood Pressure 140/72 12/11/2013 10:20 AM EST Pulse 95 12/11/2013 10:20 AM EST Temperature 37.1 ??C (98.8 ??F) 12/11/2013 8:54 AM ES T Respiratory Rate 16 12/11/2013 10:20 AM EST Oxygen Saturation 94% 12/11/2013 10:20 AM EST Inhaled Oxygen Concentration - - Weight 114.8 kg (253 lb) 12/11/2013 8:54 AM EST Height - - Body Mass Index 38.47 12/01/2013 10:54 AM EST documented in this encounter Discharge Instructions * Discharge Instructions* Darlene Lowe RN - 12/11/2013 10:21 AM EST You may have received medications before and/or during your procedure which effects judgement and reaction time. Do not drive, operate machinery, drink alcoholic beverages or make important decisions for 24 hours. Be careful on stairs as you may be unsteady on your feet. You may eat a regular diet as tolerated. Do not smoke if you are alone. IV site-- slight redness or tenderness is normal. You may use a warm compress. If tenderness and redness increases or foul drainage occurs, please contact your MD/ Please call [phone] before 5pm with problems, questions or concerns. After 5pm call [phone] and ask to speak with the retail chain store area supervisor alteration workroom supervisor. Discharge instructions reviewed with patient who expresses understanding. * Attachments The following attachments cannot be sent through Care Everywhere. * UPPER GI ENDOSCOPY: WHAT TO EXPECT AT HOME (ROMANIAN) documented in this encounter Medications at Time [...] times daily. 30 tablet 1 02/12/2014 05/07/2014 cyanocobalamin, vitamin B-12, (VITAMIN B-12) 250 mcg [...] 04/24/2010 02/12/2014 documented as of this encounter H&P Notes * Misty De Guzman MD - 12/11/2013 9:40 AM EST Patient Name: Eugene Rueda Patient Age: 62 y.o. Birthdate: 1950 Admit date: 12/11/2013 Attending Physician: Misty De Guzman MD Eugene Rueda is a 62-year-old gentleman who presents referred for possible bariatric surgery. He is a gentleman that has currently had full participation in the [facility] and meets NIH criteria for weight loss surgery. He is also someone that I had performed a laparoscopic paraesophageal hernia repair and Ronnell fundoplication upon back in 2001. I have [...] majority of our 40 minutes today in [id number] conversation regarding various treatment options for obesity with different surgical interventions. He is somewhat unique in that he has surgery on his gastroesophageal junction specifically with the paraesophageal hernia repair and Ronnell fundoplication. That will certainly have a role [...] with that plan. documented in this encounter Miscellaneous Notes * Miscellaneous - Provider, Scanning - 12/11/2013 9:19 PM EST * Miscellaneous - Provider, Scanning - 12/11/2013 5:37 PM EST documented in this encounter Plan of Treatment Upcoming Encounters Date Type Department Care Team (Late st Contact Info) Description 05/15/2024 10:00 AM EDT [place] [address] Catrachito Mehta MD [facility] [place] [address] documented as of this encounter Procedures Procedure Name Priority Date/Time Associated Diagnosis Comments SURGICAL PATHOLOGY REPORT Routine 12/11/2013 10:10 AM EST SPECIMEN TO PATHOLOGY Routine 12/11/2013 10:10 AM EST UPPER GASTROINTESTINAL ENDOSCOPY,WITH BIOPSY SINGLE OR MULTIPLE (WRVU 2.39) 12/11/2013 9:44 AM EST REC HIATAL HERNIA- PRE OP UPPER GI ENDOSCOPY Routine 12/11/2013 9: 31 AM EST POCT GLUCOSE Routine 12/11/2013 8:59 AM EST documented in this encounter Results * Surgical Pathology Report (12/11/2013 10:10 AM EST) Surgical Pathology Report ? [facility] ? Provider: ?? MISTY DE GUZMAN ??Pt. Name: ?? BRANDYNICOLASEUGENE Boo ? Acc #: ?[id number] ?Pt. ? Col Date: ?? 12/11/2013 ?/Sex: ?1950,(62 years),Male ? Rec Date: ?? 12/11/2013 ?LOC: ?4T ? SURGICAL PATHOLOGY ? ---Pathologic Diagnosis--- ? A - GE junction: ? - Esophageal squamous and gastric cardia-type mucosa with mild active ? esophagitis. ? - Scattered intraepithelial eosinophils, suggestive of reflux etiology. ? - No intestinal metaplasia is seen. ? CR-0 ? 12/15/13 ? JRP ? 12/15/13 Verified by: ? Dyllan ESCOBAR, Marcel Quesada ? Pathologist ? (Electronic Signature) ? The attending pathologist whose signature appears on this report has ? reviewed all diagnostic slides and has edited the gross and/or ? microscopic portion of the report in rendering the final pathologic ? diagnosis. ? ---Gross Description--- ? A - Labeled/Fixative: GE junction, formalin. ? Quantity/Size: Five, averaging 0.3 cm. ? Tissue Description: Soft, pink tissues. ? Sections/Processin g: (T1) ??sns ? ---Clinical Information--- ? Specimen Submitted: ? A - GE junction ? Clinical History: ? Status post Ronnell ? Clinical Diagnosis: ? Question Abarca's DERICK MURPHY 12/11/2013 10:1 0 AM EST Misty De Guzman MD PATHOLOGY/CYTOLOGY ORDERABLES [facility] * Specimen to Pathology (surgical or derm) (12/11/2013 10:10 AM EST) AP Specimen 12/11/2013 10:1 0 AM EST 12/11/2013 10:10 AM EST Narrative DERICK MURPHY - 12/11/2013 10:10 AM EST Specimen requisition ordered. ??Separate Pathology report to follow Misty De Guzman MD PATHOLOGY/CYTOLOGY ORDERABLES DERICK MURPHY * UPPER GI ENDOSCOPY (12/11/2013 9:31 AM EST) UPPER GI ENDOSCOPY [facility] Endoscopy Patient Name: Eugene Rueda ? Procedure Date: 12/11/2013 9:31 AM ? N: [id number] ? Date of : 1950 ? Age: 62 ? Order #: [id number] ? Procedure: ? Upper GI endoscopy Indications: ? Preoperative assessment for bariatric ? surgery, Assessment following Ronnell ? fundoplication Providers: ? Misty De Guzman MD, Nora ? Noy, RN, Milka Baez, ? Commercial Retoucher Referring MD: ?Manolo Castro MD Medicines: ? Midazolam 5 mg IV, Fentanyl 175 ? micrograms IV Complications: ? No immediate complications. Procedure: ? Pre-Anesthesia Assessment: ? - Prior to the procedure, a History ? and Physical was performed, and ? patient medications and allergies ? were reviewed. The patient is ? competent. The risks and benefits of ? the procedure and the sedation ? options and risks were discussed with ? the patient. All questions were ? answered and informed consent was ? obtained. Patient identification and ? proposed procedure were verified by ? the physician and the nurse in the ? endoscopy suite. Mental Status ? Examination: alert and oriented. ? Airway Examination: normal ? oropharyngeal airway and neck ? mobility. Respiratory Examination: ? clear to auscultation. CV ? Examination: normal. Prophylactic ? Antibiotics: The patient does not ? require prophylactic antibiotics. ? Prior Anticoagulants: The patient has ? taken no previous anticoagulant or ? antiplatelet agents. ASA Grade ? Assessment: II - A patient with mild ? systemic disease. After reviewing the ? risks and benefits, the patient was ? deemed in satisfactory condition to ? undergo the procedure. The anesthesia ? plan was to use moderate sedation / ? analgesia (conscious sedation). ? Immediately prior to administration ? of medications, the patient was ? re-assessed for adequacy to receive ? sedatives. The heart rate, ? respiratory rate, oxygen saturations, ? blood pressure, adequacy of pulmonary ? ventilation, and response to care ? were monitored throughout the ? procedure. The physical status of the ? patient was re-assessed after the ? procedure. ? The procedure, indications, benefits, ? risks and alternatives were explained ? to the patient. Specifically ? discussed were potential ? complications including, but not ? limited to, bleeding, perforation, ? infection, missing a cancer, and ? adverse medication reactions. The ? Endoscope was introduced through the ? mouth, and advanced to the second ? part of duodenum. The patient ? tolerated the procedure well. The ? upper GI endoscopy was technically ? difficult and complex due to presence ? of food. The patient tolerated the ? procedure well. ? Findings: ? There were esophageal mucosal changes suspicious for ? short-segment Abarca's esophagus present in the ? lower third of the esophagus. Mucosa was biopsied ? with a cold forceps for histology in 4 quadrants. ? Verification of patient identification for the ? specimen was done by the physician. Estimated blood ? loss was minimal. ? A large amount of food (residue) was found in the ? cardia. Pt had admitted to a cup of coffee 3 hours ? earlier. ? A large amount of food (residue) was found in the ? gastric antrum. ? An examination of the duodenum was not performed. ? Impression: ?- Esophageal mucosal changes ? suspicious for short-segment ? Abarca's esophagus. Biopsied. ? - A large amount of food (residue) in ? the stomach. ? - A large amount of food (residue) in ? the stomach. ? - It appears he ate solid food this ? morning, or he has significant ? gastric emptying delay. Recommendation: ?- Repeat the upper endoscopy at ? appointment to be scheduled because ? the bowel preparation was poor. I ? could not get into the duodenum and ? could not see the area of the prior ? fundoplication due to large amount of ? solids in the stomach. ? ___ Misty De Guzman MD 12/11/2013 10:19 AM This report has been signed electronically. Number of Addenda: 0 Note Initiated On: 12/11/2013 9:31 AM PROVATION 12/11/2013 9:31 AM EST Manolo Castro MD GENERAL SURGICAL ORD ERABLES Performing Organization Address [facility] de Phone Number PROVATION * POCT Glucose (12/11/2013 8:59 AM EST) POC Glucose 172 60 - 199 mg/dL CERNER MILLENNIUM Comment: Supplemental ranges: <110 mg/dL before meals <200 mg/dL all other times of the day Blood specimen (specimen) 12/11/2013 8:59 AM EST 12/11/2013 8:59 AM EST Misty De Guzman MD POINT OF CARE TEST ORDERABLES Performing Organization Address [facility] de Phone Number [facility] documented in this encounter Visit Diagnoses Not on filedocumented in this encounter Administered Medications Inactive Administered Medications - up to 3 most recent administrations Medication Order MAR Action Action Date Dose Rate Site fentaNYL 50mcg/mL injection ONCE PRN, Starting on Sat12/11/13 at 0946, Until Sat12/11/13 at 1103, Pain, Intra-Operative (Intra-Procedure), Routine Given 12/11/2013 10:03 AM EST 25 mcg Right Arm Given 12/11/2013 9:52 AM EST 50 mcg Ri ght Arm Given 12/11/2013 9:46 AM EST 100 mcg Ri ght Arm midazolam (PF) (VERSED) 1 mg/mL injection ONCE PRN, Starting on Sat12/11/13 at 0946, Until Sat12/11/13 at 1103, Sleep, Intra-Operative (Intra-Procedure), Routine Given 12/11/2013 10:02 AM EST 1 mg Righ t Arm Given 12/11/2013 9:55 AM EST 1 mg Ri ght Arm Given 12/11/2013 9:52 AM EST 1 mg Ri ght Arm documented in this encounter Active and Recently Administered Medications Times are shown in EST. PRN Medication Order 12/09/2013 12/10/2013 12/11/2013 fentaNYL 50mcg/mL injection (CANCELED) ONCE PRN, Starting on Sat12/11/13 at 0946, Until Sat12/11/13 at 1103, Pain, Intra-Operative (Intra-Procedure), Routine 0946 (Given - Provid er: Nora Villafuerte RN)0952 (Given - Provider: Nora Villafuerte RN)1003 (Given - Provider: Nora Villafuerte RN) midazolam (PF) (VERSED) 1 mg/mL injection (CANCELED) ONCE PRN, Starting on Sat12/11/13 at 0946, Until Sat12/11/13 at 1103, Sleep, Intra-Operative (Intra-Procedure), Routine 0946 (Given - Provid er: Nora Villafuerte RN)0952 (Given - Provider: Nora Villafuerte RN)0955 (Given - Provider: Nora Villafuerte RN)1002 (Given - Provider: Nora Villafuerte RN) documented in this encounter Care Teams Desktop Support Manager Relationship Specialty Start Date End Date Manolo Castro MD [address] [place] [address] PCP - General 05/14/12 04/21/17 documented as of this encounter
--- OUTSIDE RECORDS SUMMARY | 2024-04-27 14:56 | XMS_ITS | Encounter Summary ---
Author Organization [facility] [place] [address] Care Team Providers Care Tool Keeper Name Role Phone Manolo Castro MD Primary Care Provider [phone] Encounter Details Date Type Department Care Team (Late Contact Info) Description 12/15/2013 Orders [place] [phone] Narda Allen APRN [facility] [place] [address] Delayed gastric emptying; Morbid obesity; Hypertension; Type 2 diabetes mellitus; GERD (gastroesophageal reflux disease) Social History Tobacco Use Types Packs/Day Years [...] 10:00 AM EDT [place] [phone] Catrachito Mehta MD [facility] [place] [address] documented as of this encounter Results * NM gastric emptying scan (12/23/2013 12:42 PM EDT) Anatomical Region Laterality Modality Other 12/23/2013 12:4 2 PM EDT Narrative 12/23/2013 1:57 PM EDT Examination GASTRIC EMPTYING SCAN Clinical History history of GERD, Ronnell fundoplication with large amount of retained food in stomach by recent ??EGD. Preop ??bariatric surgery Comparison None ?? Technique A standard meal was labeled with 0.5 mCi of technetium-99m sulfur colloid and ingested. Images of the stomach were obtained in the anterior and posterior projections immediately thereafter and one, two and four hours later. Findings Activity fills the stomach in the initial image. Small bowel is visible at one hour. There is minimal activity present in the stomach at four hours. Quantitative Analysis Two hours: 34% remains in the stomach (normal <60%) Four hours: 4% remains in the stomach (normal <10%) Impression Normalgastric emptying. Procedure Note Demetrio Bryan MD - 12/23/2013 Examination GASTRIC EMPTYING SCAN Clinical History history of GERD, Ronnell fundoplication with large amount of retained foodin stomach by recent EGD. Preop bariatric surgery Comparison None Technique A standard meal was labeled with 0.5 mCi of technetium-99m sulfur colloidand ingested. Images of the stomach were obtained in the anterior andposterior projections immediately thereafter and one, two and four hours later. Findings Activity fills the stomach in the initial image. Small bowel is visible atone hour. There is minimal activity present in the stomach at four hours. Quantitative Analysis Two hours: 34% remains in the stomach (normal <60%) Four hours: 4% remains in the stomach (normal <10%) Impression Normalgastric emptying. Wally Pfeiffer MD [facility] ORDERABLES documented in this encounter Visit Diagnoses Diagnosis Delayed gastric emptying Dyspepsia and other specified disorders of function of stomach Morbid obesity Hypertension Unspecified essential hypertension Type 2 diabetes mellitus Type II or unspecified type diabetes mellitus without mention of complication, not stated as uncontrolled GERD (gastroesophageal reflux disease) Esophageal reflux Delayed gastric emptying Dyspepsia and other specified disorders of function of stomach Type 2 diabetes mellitus Type II or unspecified type diabetes mellitus without mention of complication, not stated as uncontrolled GERD (gastroesophageal reflux disease) Esophageal reflux documented in this encounter Care Teams Tool Keeper Relationship Specialty Start Date End Date Manolo Castro MD [address] [place] [address] PCP - General 05/14/12 04/21/17 documented as of this encounter
--- OUTSIDE RECORDS SUMMARY | 2024-04-27 14:56 | XMS_ITS | Encounter Summary ---
Author Organization [facility] [place] [address] Care Team Providers Care Bi Lead Name Role Phone Manolo Castro MD Primary Care Provider [phone] Encounter Details Date Type Department Care Team (Late st Contact Info) Description 07/28/2013 Notes [place] [address] Narda Allen APRN [facility] [place] [address] Social History Tobacco Use Types Packs/Day Years [...] encounter Progress Notes * Narda Allen - 07/29/2013 8:26 AM EDT BARIATRIC SURGERY PROGRAM SURGICAL TEAM CASE REVIEW Eugene Rueda is a 62 y.o. year-old male. His primary care physician is MANOLO CASTRO MD: Staff present at today's meeting: Wally Pfeiffer MD, director. Phong Gonzales MD, Stephanie Butcher MD, Narda Allen APRN, [address] Reason for presentation: age >60 Patient Active Problem List Diagnosis Code ??? Hip arthritis 716.95 ??? S/P knee replacement V43.65 ??? HTN (hypertension) 401.9 ??? High cholesterol 272.0 ??? Atrial fibrillation 427.31 ??? PVD (peripheral vascular disease) 443.9 ??? DM (diabetes mellitus) 250.00 ??? CARLOS A (obstructive sleep apnea) 327.23 ??? Type 2 diabetes mellitus 250.00 ??? GERD (gastroesophageal reflux disease) 530.81 ??? Varicose veins 454.9 ??? Peripheral neuralgia 356.9 ??? Carpal tunnel syndrome 354.0 ??? Asbestosis 501 ??? Pterygium 372.40 ??? Fatigue 780.79 ??? Depression 311 ??? Umbilical hernia 553.1 Past Surgical History Procedure Date ??? Cholecystectomy ??? Vasectomy ??? Tonsillectomy ??? Total knee arthroplasty bilateral Plan of care: approved to proceed with bariatric surgery evaluation documented in this encounter Plan of Treatment Upcoming Encounters Date Type Department Care Team (Late st Contact Info) Description 05/15/2024 10:00 AM EDT [place] [address] Catrachito Mehta MD [facility] [place] [address] documented as of this encounter Visit Diagnoses Not on filedocumented in this encounter Care Teams Bi Lead Relationship Specialty Start Date End Date Manolo Castro MD [address] [place] [address] PCP - General 05/14/12 04/21/17 documented as of this encounter
--- OUTSIDE RECORDS SUMMARY | 2024-04-27 14:56 | XMS_ITS | Encounter Summary ---
Author Organization [facility] [place] [address] Care Team Providers Care Sheetmetal Worker Name Role Phone Manolo Castro MD Primary Care Provider [phone] Encounter Details Date Type Department Care Team (Late Contact Info) Description 06/30/2013 Orders [place] [address] Momo Blount MD [facility] [place] [address] Left hip pain (Primary Dx) Social History Tobacco Use Types [...] 10:00 AM EDT [place] [address] Catrachito Mehta MD [facility] [place] [address] documented as of this encounter Results * XR pelvis AP and hip 2 views of 1 hip (07/10/2013 9:45 AM EDT) Anatomical Region Laterality Modality Pelvis, Hip N/A Radiographic Sia ging 07/10/2013 9:45 AM EDT Narrative 07/10/2013 4:39 PM EDT Examination AP PELVIS AND 2 VIEWS ONE HIP/LEFT Clinical History L HIP Comparison None Technique AP pelvis with AP and lateral views of the left hip. ?? Findings Osteoarthritis of bilateral hips are present, left greater than right, with moderate joint space loss, subchondral sclerosis, and marginal osteophytosis. Minimal enthesophytes are also noted in the left greater trochanter. No acute fracture or dislocation. No aggressive osseous lesion. Vascular phlebolith is seen in the lower left hemipelvis. ??Visualized symphysis pubis is normal. SI joints are symmetrical and sacrum is obscured by overlying bowel gas. Two metallic clips are seen in the groin. ?? Impression Osteoarthritis of bilateral hip joints, left greater than right. Film and interpretation reviewed by the attending Procedure Note Momo Gallego MD - 07/10/2013 Examination AP PELVIS AND 2 VIEWS ONE HIP/LEFT Clinical History L HIP Comparison None Technique AP pelvis with AP and lateral views of the left hip. Findings Osteoarthritis of bilateral hips are present, left greater than right,with moderate joint space loss, subchondral sclerosis, and marginalosteophytosis. Minimal enthesophytes are also noted in the left greater trochanter. Noacute fracture or dislocation. No aggressive osseous lesion. Vascular phlebolithis seen in the lower left hemipelvis. Visualized symphysis pubis is normal.SI joints are symmetrical and sacrum is obscured by overlying bowel gas. Two metallic clips are seen in the groin. Impression Osteoarthritis of bilateral hip joints, left greater than right. Film and interpretation reviewed by the attending Momo Blount MD [facility] ORDERABLES documented in this encounter Visit Diagnoses Diagnosis Left hip pain- Primary Pain in joint, pelvic region and thigh Left hip pain Pain in joint, pelvic region and thigh documented in this encounter Care Teams Sheetmetal Worker Relationship Specialty Start Date End Date Manolo Castro MD [address] [place] [address] PCP - General 05/14/12 04/21/17 documented as of this encounter
--- OUTSIDE RECORDS SUMMARY | 2024-04-27 14:56 | XMS_ITS | Encounter Summary ---
Author Organization [facility] Address [facility] [place] [address] Care Team Providers Care Inspector Metal Can Name Role Phone Manolo Castro MD Primary Care Provider [phone] Encounter Details Date Type Department Care Team (Latest Contact Info) Description 12/23/2013 7:57 AM EDT - 12/23/2013 11:59 PM EDT Hospital Encounter [place] [id number] CLINIC, DR SHADI Pfeiffer, Wally Garcia MD [facility] [place] [address] Delayed gastric emptying; Type 2 diabetes mellitus; GERD (gastroesophageal reflux disease) Discharge Disposition: Home Social History Tobacco Use [...] 10:00 AM EDT [place] [address] Catrachito Mehta MD [facility] [place] [address] documented as of this encounter Procedures Procedure Name Priority Date/Time Associated Diagnosis Comments NM GASTRIC EMPTYING SCAN Routine 12/23/2013 12:42 PM EDT Delayed gastric emptying Type 2 diabetes mellitus GERD (gastroesophageal reflux disease) documented in this encounter Results * NM gastric emptying [...] stomach (normal <10%) Impression Normalgastric emptying. Wally Pfefifer MD [facility] ORDERABLES documented in this encounter Visit Diagnoses Diagnosis Delayed gastric emptying Dyspepsia and other specified disorders of function of stomach Type 2 diabetes mellitus Type II or unspecified type diabetes mellitus without mention of complication, not stated as uncontrolled GERD (gastroesophageal reflux disease) Esophageal reflux documented in this encounter Care Teams Inspector Metal Can Relationship Specialty Start Date End Date Manolo Castro MD [address] [place] [address] PCP - General 05/14/12 04/21/17 documented as of this encounter
--- OUTSIDE RECORDS SUMMARY | 2024-04-27 14:56 | XMS_ITS | Encounter Summary ---
Author Organization Formerly [facility] [place] [address] Care Team Providers Care Reinforcer Name Role Phone Manolo Castro MD Primary Care Provider [phone] Reason for Visit * Reason Comments Obesity Bariatric Surgery Pr lexi preoperative visit #2 Encounter Details Date Type Department Care Team (Latest Contact Info) Description 12/01/2013 11:00 AM EST Office [place] [address] Narda Allen, MIGUEL [facility] [place] [address] Hypertension; Type 2 diabetes mellitus; Obstructive sleep apnea (adult) (pediatric); Chronic anticoagulation Social History Tobacco Use Types Packs/Day Years [...] Sign Reading Time Taken Comments Blood Pressure 134/72 12/01/2013 10:54 AM EST Pulse 111 12/01/2013 10:54 AM EST Temperature 36.5 ??C (97.7 ??F) 12/01/2013 1 0:54 AM EST Respiratory Rate 20 12/01/2013 10:5 4 AM EST Oxygen Saturation 98% 12/01/2013 10: 54 AM EST Inhaled Oxygen Concentration - - Weight 114.8 kg (253 lb 1.6 oz) 014 10:54 AM EST Height 172.7 cm (5' 8) 12/01/2013 10:5 4 AM EST Body Mass Index 38.48 12/01/2013 10:54 AM EST documented in this encounter Patient Instructions * Patient Instructions* Narda Allen T - 11/30/2013 3:51 PM EST BARIATRIC SURGERY PROGRAM SECOND VISIT Contact information: [facility] Admin coordinator Tracy: [phone] Dietitian: [phone] Surgeons/ nurse practitioner: [phone] Nurse line: [phone] 1. Pending information: none BRIDGING PROTOCOL TO BEGIN 5 DAYS PRIOR TO PROCEDURE per wardrobe coordinator Day Treatment -5 Last warfarin dose -4 Enoxaparin 1 mg/kg, SQ injection twice daily -3 Enoxaparin 1 mg/kg, SQ injection twice daily -2 Enoxaparin 1 mg/kg, SQ injection twice daily -1 Enoxaparin 1 mg/kg, SQ injection morning only. This is the last dose of enoxaparin before the procedure and should be administered not less than 24 hours before the procedure Check INR; if >1.5 administer 2.5 mg vitamin K orally Ongoing weight loss is encouraged. There is a no weight gain policy between visits. The surgeon mayopt to delay your surgery if you gain weight between visits. Bring the Educational Handbook to the surgeon's visit. After your surgical consultation, all pertinent information will be faxed to your insurer for approval, which can take a few weeks. Your surgery date and pre-operative class will be scheduled after you are approved by your insurer.We cannot predict your OR date in advance of approval- please do not ask for an estimate. Only the OR planner scheduler can provide you with a date AFTER APPROVAL by your insurer. Some insurers, such as [employer] and [employer], approve quickly so you can likely get the OR date on the day you have a surgeon visit Pre-op Class: Tracy will schedule, pending your OR date. Prepare for the Pre-op Class by doing the followin. Review the program handbook and come to class with a list of questions. 2. Watch the videos on shopping, meal planning and emotional eating on the [facility] website under Bariatric Surgery ([email or web address]). 3. Go to [employer] and review the education materials ([email or web address]). 4. Come prepared to the class to discuss meal planning. 5. Bring your supplements and the medication you will be taking to prevent ulcers after surgery. 6. Come with tips and suggestions that my be helpful to others. Questions for your doctor, specialist or pharmacist: Ask your doctor about medication suggestions if you currently take medications that are larger than the size of a tylenol. Large pills need to be crushed (if permitted by the drug oyster culturist) or taken in liquid form for TWO WEEKS after surgery. Diabetic oral medication often does not need to betaken after surgery) ?? If you take antinflammatory medications or steroid medicationsfor arthritis or asthma, please check with your doctor. These medications will likely need to be held 1 week prior to and at least a few weeks after surgery. documented in this encounter Progress Notes * Rowan Deutsch, RD - 12/01/2013 10:21 AM EST BARIATRIC SURGERY PROGRAM NUTRITION EDUCATION 2nd Pre-Operative Visit Shared Medical Appointment Eugene Rueda attended a 2 hour shared medical appointment today for his second pre-operative visit with the Bariatric Surgery Program dietitian and nurse practitioner. Mr. Rueda is a morbidly obese male who has been referred for nutrition evaluation and diet instruction in anticipation of bariatric surgery. Previous conservative attempts at weight loss through dieting have been unsuccessful over the intermediate manager. Advised patient that bariatric surgery is a weight loss tool not a solution; and ultimately weight loss will be achieved through proper eating and exercise habits. He was given suggestions for how toincorporate dietary and lifestyle changes into his daily schedule. Patient was given a copy of the program handbook at the initial appointment which includes specific information on all nutritional recommendations and guidelines. He was also given contact information for further nutritional questions. Mr. Rueda showed good understanding of the concepts discussed. Nutrition Topics Covered at Today's Appointment: ?? Pre-operative Surgical Diet ?? Purpose of diet ?? Appropriate foods ?? Protein goals ?? Carbohydrate goals ?? Calorie goals ?? Keeping a food log ?? Hydration and Appropriate Beverages ?? Post-Operative Diets (Stages I-IV) ?? Importance of following diet stages ?? Appropriate foods ?? Sample Menus ?? Vitamin/Mineral Supplementation ?? Common Food Intolerances ?? Dumping Syndrome ?? Sugar Alcohols The appointment consisted of 60 minutes of group education and counseling. * TiffanyParas ledezmaureen T - 11/30/2013 3:45 PM EST Reason for visit: Eugene is a 62 y.o. year-old male who presents for review of progress since initial visit, and discussion of risks and benefits of bariatric surgery. Mr. Rueda'kiley bariatric procedure of choice: takedown of Ronnell fundoplication and conversion to sleeve gastrectomy History of present illness: see notes from 11/03/13. BARIATRIC SURGERY PROGRAM PATHWAY Review of progress with the requirements of the Bariatric Surgery Program: 1. Education: He has attended a Introduction to the [facility] Bariatric Surgery Program seminar, a comprehensive two hour meeting that provides a program overview, education on bariatric surgeries offered at [facility], risks and benefits, as well as patient expectations and follow up, in July 2013. [facility] Bariatric Surgery Program Educational seminars viewed: 3, in September 2013. Grades on post-testin-90%. The BSP Educational Handbook is provided at visit #1. 2. Pre-operative programmatic evaluations: PCP evaluation and letter of support to proceed with surgery, BSP labwork and psychological evaluation 3. Bariatric Surgery Program evaluations with RD and APPLICATION MANAGER: 11/03/13 and today. 4. Weight history: 195 pounds on 07/09/2002, 218 pounds on 09/06/05, 246 pounds on 09/06/08, 246 pounds on 08/14/10, 257 pounds on 08/19/13, 255 pounds on 07/10/13. Current weight: 253 pounds, weight at visit #1: 257 pounds HT 68.8 in 5. Gallbladder status: Believed to be intact, per patient, although notes from PCP indicate prior cholecystectomy 6. Insurer specific requirements: Medicare part A, [employer] and [place]- 3 months of supervised counseling 7. BSP Team meeting discussion: Indication: age >60 8. Next steps in pathway: ?? Since all BSP requirements and testing have been completed: surgical consultation has been scheduled with Dr. Pfeiffer ?? Following surgical consultation, if approved to proceed to surgery by surgeon and insurer: an operative date and Pre-operative Education Class, a 2 hour class taught by the Bariatric APPLICATION MANAGER and RD will be scheduled ?? During hospitalization for bariatric surgery, a standard bariatric surgery order set is followed. ?? Routine post-operative follow up with labwork is done at months 1,4,12,18 and 24, yearly thereafter, and PRN. High risk patients are followed more frequently. Problem List ??? Preoperative Class II obesity BMI 38.1 ??? Hypertension treated with ramipril ??? Type 2 diabetes mellitus diagnosed ~2008, less than ideally controlled A. Current treatment: glyburide, metformin B. Monitoring: rare self glucose monitoring, A1c 6.5 in July 2013, increased to 7.9 on 11/03/13 C. Complications: denies ??? Hyperlipidemia treated with lovastatin ??? History of GERD, S/P repair of paraesophageal hernia and Ronnell fundoplication A. Barium swallow done on 11/18/13: Small recurrent paraesophageal hernia. The Ronnell wrap is intactModerate amount of gastroesophageal reflux. ??? Obstructive sleep apnea A. PSG done in 1998: AHI of 22 and a supine index of 75. Oxygen saturation was as low as 88%. B. CPAP study done on 06/30/2008, at a weight of 238 pounds, he had an AHI of 78, minimum saturation of 78% C. Current treatment: using CPAP at 15 cmwp all night. Last [facility] follow up on 09/14/13, compliance data showed 100% usage, AHI 0.3/hr ??? Atrial fibrillation treated with Diltiazem and Coumadin A. Cardiac ECHO done on 11/18/13: Technically difficult study. Left ventricular chamber size, wall thickness, global and segmental systolic function are within normal limits. Ejection fraction is estimated to be 60%. The left atrium is moderately dilated. The right atrium is moderately dilated. There is mild (1+/4+) mitral regurgitation present. ??? Chronic anticoagulation A. S/P evaluation by Thrombosis clinic on 11/18/13, specific periop recommendations made ??? Peripheral vascular disease ??? Musculoskeletal issues: stable, rare Ibuprofen use A. Back pain ??? Varicose veins both legs, no DVT history A. Rehab med evaluation on 11/18/13: recommended knee highs. Stretching exercises reviewed. ??? Depression ??? Fatigue ??? Hypogonadism ??? Elevated TSH and decreased T4 ??? Decreased hearing right ear, wears hearing aid ??? Tattoo ??? Diverticulosis ??? Hemorrhoids ??? Asbestosis, asymptomatic ??? 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 Laparoscopic paraesophageal hernia repair and Ronnell fundoplication 07/16/2002 ??? Laparoscopic umbilical hernia repair with [address] ST circular mesh (11.4 cm in diameter) at [facility] 10/15/2012 ??? Vasectomy ??? Right carpal tunnel release ~2007 ??? Septoplasty, Bilateral inferior turbinoplasty, Uvulopalatopharyngoplasty 08/25/1999 ??? Tonsillectomy ~1955 ??? Bilateral total knee arthroplasty 12/16/2002 Anesthesia history (per patient): denies untoward events- other than developed open sores on right hand after right carpal tunnel repair Recent diagnostic screening/ evaluations since initial visit: (all available- with exception of primary care visit) - Barium swallow done on 11/18/13 - Cardiology evaluation and ECHO done on 11/18/13: cleared to proceed with surgery. - Rehab med evaluation for varicose veins on 11/18/13 - Thrombosis Clinic evaluation on - Follow up with PCP Dr Castro in October regarding TSH elevation: per patient report, no further testing/treatment needed. (Primary care office was contacted for documentation of this visit.) Changes to review of systems/ medications since initial visit: he has purchased as is wearing the support stocking, as recommended by PT. Overall changes to comorbidities are noted in Updated Problemlist. Review of plans for post-operative support after discharge: son Rip, who accompanies him to today'svisit Exam: Blood pressure 134/72, pulse 111, temperature 36.5 ??C (97.7 ??F), temperature source Oral, resp. rate 20, height 172.7 cm (5' 8), weight 114.805 kg (253 lb 1.6 oz), SpO2 98.00%. Discussion of bariatric surgeries performed at [facility], risks and benefits, and the [facility] Bariatric Surgery Program requirements: The risks of immediate and intermediate manager complications as well as the benefits of gastric bypass, sleeve gastrectomy and gastric banding surgeries, as outlined extensively in the Bariatric Surgery Program Handbook, which is a >90 page document, were reviewed. He is aware that all bariatric surgeries are elective procedures. The mechanism by which gastric bypass, sleeve gastrectomy and adjustable gastric banding surgeries lead to weight loss was reviewed. The concept that bariatric surgery is a tool for weight loss and not a cure for obesity was again emphasized. The need for commitment to retirement lifestyle changes, with healthy diet and regular physical activity was stressed to achieve and sustain intermediate manager weight loss. Benefits of bariatric surgery discussed: estimated loss of 50% - 70% of excess body weight with gastric bypass and sleeve gastrectomy, estimated 30-50% with adjustable banding, with patients rarely achieving their ideal body weight, especially patients with BMIs >50. improvement or resolution of weight related comorbidities such as obesity- related hypertension, sleep apnea, NAFLD/ HUYNH, esophageal reflux, pseudotumor cerebri, restrictive lung disease and hyperlipidemia when anticipated weight loss is achieved. diabetes improvement occurs in the majority of patients shortly after gastric bypass and sleeve gastrectomy, often prior to discharge from the hospital, prior to any weight loss patients also generally feel better, with improvement in self-esteem and activity levels. Potential but rare risks of gastric bypass, sleeve gastrectomy and gastric banding discussed: inability to perform the operation <0.02% bleeding and splenic injury with the need for blood transfusion heart and lung complications, including prolonged mechanical ventilation and possible tracheostomy wound infection and seroma, rare in laparoscopic patients DVT with fatal pulmonary emboli. Prophylactic measures used including Enoxaparin, sequential compression devices and early ambulation. rhabdomyolysis nutritional deficiencies, including protein-calorie malnutrition, vitamins B12, B1, D, folate, irondeficiency and anemia. (less likely, but possible with banding) gallstones, significantly decreased by prophylactic treatment with Ursodiol for 6 months post-operatively. peripheral neuropathy transient telogen effluvium patients weighing >350 pounds with increased risks related to radiology equipment weight limits,which may necessitate return to OR for evaluation Risks specific to gastric bypass discussed: anastomotic leakage with the development of peritonitis and abscess, potentially leading to sepsis,renal failure and . anastomotic stricture and ulcer lifetime risk of small bowel obstruction lifetime risk of internal and incisional hernias. Risk of incisional hernia rare in laparoscopic surgery. potential risk for renal calculi, increased with chronic poor hydration and prior history of renal calculi Risks specific to laparoscopic sleeve gastrectomy discussed: leak at the staple line with the development of peritonitis and abscess, potentially leading to sepsis, renal failure and . stricture of gastric remnant with need for dilatation prolonged nausea and vomiting need to convert to gastric bypass because of poor weight loss Risks specific to adjustable gastric banding discussed: (presented for educational purposes only, since banding surgery is not offered at [facility] due to unacceptably high complication rates reported worldwide) Vomiting Stomal obstruction Gastric perforation Gastric prolapse (slippage) Band erosion Pouch/esophageal dilation Esophagitis/ GERD port and tubing complications such as flipped port, port infection, breakage and disconnection of tubing slower and generally less weight loss than gastric bypass need for more frequent follow up Potential secondary effects of bariatric surgeries discussed: weight regain/ poor weight loss influenced by eating behaviors and lack of a regular exercise program. Drinking high calorie liquids, frequent snacking or ingestion of large amounts of soft foods will cause weight gain after surgery. dumping syndrome including lactose intolerance vs. food intolerances sagging skin in any area, such as the face, torso and extremities following weight loss. Body contouring surgery may not be a covered benefit by the individual's insurer, and is associated with scarring, risk of infection etc. He was strongly advised that if unable to accept the possibility of skinredundancy following weight loss, then he should not proceed with bariatric surgery. Bariatric surgery is done for health reasons, not to improve physical appearance. transfer of addictions or symptom substitution behavior. When food is no longer available to secure a sense of comfort and/or relieve stress, some may turn to alcohol or illicit substances, while others may turn to excessive shopping, gambling or other indiscretions. Eugene was advised that bariatric surgery would likely be ineffective for those who: receive a great deal of satisfaction from eating have active eating disorders including binge eating disorder and bulimia are in the midst of serious personal or unstable psychiatric problems Other information discussed: Bariatric Surgery Follow up for LIFE: Gastric bypass and sleeve gastrectomy: months 1,4,12,18 and 24, yearly thereafter. More frequent follow up done as clinically indicated. A visit at 8 months post-op is optional. Adjustable gastric banding: same as gastric bypass, with frequent follow up for the first 2 years recommended to achieve optimal weight loss, then yearly and as needed. Labwork: done at all routine visits except 1 month post op Post-operative support group meetings: held on the first Saturday of every month. All patients are encouraged to attend. Vitamin and mineral supplementation for LIFE: B12 500 mcg sublingual daily, calcium citrate 600 mg with vitamin D 400- 500 mg BID, multivitamins once a day. Iron in the form of ferrous fumarate is taken with vitamin C once a day for menstruatingfemales or those with iron deficiency or anemia. He appeared to have a good understanding of the information presented at today's meeting, and seemsto have reasonable and realistic expectations of bariatric surgery. He previously signed an agreement stating that he is willing to comply with instructions, lifetime vitamin and mineral supplementation and programmatic follow up. Assessment/ Plan: 62 y.o. year old male with Class II obesity with established obesity-related chronic disease. Currently, bariatric surgery is the best treatment available for morbid obesity, providing the only mechanism for reproducible, effective, and sustained weight loss. Mr.. Rueda is interested in a laparoscopic approach to takedown of Ronnell fundoplication and conversion to sleeve gastrectomy surgery, and meets BSP requirements. He is aware that conversion to anopen procedure is possible. His Bariatric Surgery VTE Risk Assessment score, as determined at visit #1 is elevated at 4, which indicates that enoxaparin 40 mg SQ BID is recommended during inpatient stay and post discharge. He is on chronic anticoagulation for atrial fibrillation. He has been evaluated by the Thrombosis Clinicand has specific perioperative recommendations for coumadin and enoxaparin. Mr. Rueda has met the requirements of the [facility] Bariatric Surgery Program, and has an appointmenttoday for surgical consultation. He was encouraged to call with any questions or concerns. Data reviewed: Visit #2 questionnaire Barium swallow Cardiology evaluation Rehab med evaluation Thrombosis clinic evaluation Information reviewed with patient: 1. [facility] Bariatric Surgery Program Educational Handbook, bariatric surgery patient agreement and risks and benefits of gastric bypass, sleeve gastrectomy and adjustable gastric banding surgery reviewed in detail. Pending/ other: - Copy of note from Dr. Castro regarding plan forTSH elevation - Ongoing weight loss encouraged Time spent in counseling: Individual planning and coordination of care: 5 minutes Group counselin minutes Questions regarding [facility] Bariatric Surgery Program patients: please call Shayy Allen APRN at [phone] or [phone] beeper [phone]. documented in this encounter Plan of Treatment Upcoming Encounters Date Type Department Care Team (Late st Contact Info) Description 05/15/2024 10:00 AM EDT Office [place] [address] Catrachito Mehta MD [facility] [address] [place] [address] documented as of this encounter Visit Diagnoses Diagnosis Hypertension Unspecified essential hypertension Type 2 diabetes mellitus Type II or unspecified type diabetes mellitus without mention of complication, not stated as uncontrolled Obstructive sleep apnea (adult) (pediatric) Chronic anticoagulation Encounter for long-term (current) use of anticoagulants documented in this encounter Care Teams Reinforcer Relationship Specialty Start Date End Date Manolo Castro MD [address] [place] [address] PCP - General 05/14/12 04/21/17 documented as of this encounter
--- OUTSIDE RECORDS SUMMARY | 2024-04-27 14:56 | XMS_ITS | Encounter Summary ---
Author Organization [facility] [place] [address] Care Team Providers Care Bogger Operator Name Role Phone Manolo Castro MD Primary Care Provider [phone] Encounter Details Date Type Department Care Team (Late st Contact Info) Description 02/02/2014 Telephone [place] [id number] Milka Barrios, RN Social History Tobacco Use Types Packs/Day [...] encounter Miscellaneous Notes * Telephone Encounter - Milka Barrios, RN - 02/02/2014 11:14 AM EDT Pt is scheduled for surgery with Dr. Pfeiffer on 02/08/14 and is confused about the injections when hestops his coumadin. I called the pt. He has never had to do a lovenox bridge in the past when holding his coumadin. He is taking it for Afib. Plan: Discussed with Dr. Pfeiffer. Pt does not need a bridge pre-op. I explained that they will givehim a prescription at discharge for the ones he need to do after surgery. Pt aware that he needs tohold the coumadin 5 days prior to surgery. We will also order a PT/INR for the morning of surgery. Pt verbalizes his understanding and agrees with the plan. documented in this encounter Plan of Treatment Upcoming Encounters Date Type Department Care Team (Late st Contact Info) Description 05/15/2024 10:00 AM EDT Office [place] [address] Catrachito Mehta MD [facility] [place] [address] documented as of this encounter Visit Diagnoses Not on filedocumented in this encounter Care Teams Bogger Operator Relationship Specialty Start Date End Date Manolo Castro MD [address] [place] [address] PCP - General 05/14/12 04/21/17 documented as of this encounter
--- OUTSIDE RECORDS SUMMARY | 2024-04-27 14:56 | XMS_ITS | Encounter Summary ---
Author Organization Formerly [facility] [place] [address] Care Team Providers Care Line Department Supervisor Name Role Phone Eduardo Reina MD Primary Care Provider [phone] Encounter Details Date Type Department Care Team (Late Contact Info) Description 04/11/2012 Orders [place] [address] Jose C Ledbetter PA [facility] [place] [address] S/P knee replacement (Primary Dx) Social History Tobacco Use Types [...] 10:00 AM EDT [place] [address] Catrachito Mehta MD [facility] [place] [address] documented as of this encounter Visit Diagnoses Diagnosis S/P knee replacement- Primary Knee joint replacement by other means documented in this encounter Care Teams Line Department Supervisor Relationship Specialty Start Date End Date Eduardo Reina MD [address] [place] [address] PCP - General 08/29/10 05/13/12 documented as of this encounter
--- OUTSIDE RECORDS SUMMARY | 2024-04-27 14:56 | XMS_ITS | Clinical Summary ---
Author Organization [facility] Address [address] [place] [address] Care Team Providers Care Prior Authorization Nurse Name Role Phone Dominic Restrepo MD Primary Care Provider [phone] Encounters Date Type Department Care Team Description 01/31/2024 Lab Requisition [facility] Pathology & Laboratory Medicine - [facility] [address] [place] [address] Outr Resulting Lab, Provider from Last 3 Months Social History Tobacco Use Types Packs/Day Years Used Date Smoking Tobacco: Never Assessed Interpersonal Safety Answer Date Record ed Physically Hurt Never 05/08/2020 Verbally Threaten Not on file 05/08/2020 Sex and Gender Information Value Date Recorded Sex Assigned at Not on file Gender Identity Not on file Sexual Orientation Not on file Plan of Treatment Health Maintenance Due Date Last Done Comments RSV Immunization ( o r 60+ Years) (1 - 1-dose 60+ series) 2009 Fall Risk Screening 2014 COVID-19 Vaccine (2022- season) 2023 Hepatitis C Screen Completed 10/11/2021 Procedures Procedure Name Priority Date/Time Associated Diagnosis Comments FECAL BACTERIAL PATHOGENS BY PCR Routine 01/31/2024 11:50 EDT HEPATITIS C AB W REFLEX TO HCV RNA BY PCR Routine 10/11/2021 9:25 EST from Last 3 Months or Most Recently Relevant to Health Maintenance Results * FECAL BACTERIAL PATHOGENS BY PCR (01/31/2024 11:50 EDT) Salmonella PCR Negative Negative 02/01/2024 10:42 EDT [facility] Shigella/Enteroin vasive E. coli Negative Negative 02/01/2024 10:42 EDT [facility] HN LAB CAMPYLOBACTER PCR Negative Negative 02/01/2024 10:42 EDT [facility] Shiga Toxin PCR Negative Negative 10:42 EDT [facility] Feces SPECIMEN FROM RECTUM / Unknown 01/31/2024 11:50 EDT 01/31/2024 22:07 EDT Provider Outr Resulting Lab MICROBIOLOGY - GENERAL ORDERABLES [facility] [address] [place] [address] * HEPATITIS C AB W REFLEX TO HCV RNA BY PCR (10/11/2021 9:25 EST) Hep C Antibody Negative Negative 10/12/2021 10:10 EST [facility] Blood VENOUS BLOOD / Unknown 10/11/2021 9:25 EST 10/11/2021 21:22 EST Provider Outr Resulting Lab CHEMISTRY & BLOOD GAS ORDERABLES [facility] [address] [place] [address] from Last 3 Months or Most Recently Relevant to Health Maintenance Care Teams Prior Authorization Nurse Relationship Specialty Start Date End Date Dominic Restrepo MD [address] [place] [address] PCP - General 01/20/20
--- OUTSIDE RECORDS SUMMARY | 2024-04-27 14:56 | XMS_ITS | Encounter Summary ---
Author Organization [facility] [place] [address] Care Team Providers Care Public Relations Associate Name Role Phone Manolo Castro MD Primary Care Provider [phone] Reason for Referral * Physical Therapy (Routine) - Closed Specialty Diagnoses / Procedures Referred By Sonal dawson Referred To Contact Physical Therapy Diagnoses Varicose veins Flavia Chavez MD [facility] DR HEMATOLOGY/[place] [address] [facility] [place] [address] Referral ID Status Reason Start Date Expiration Date V isits Requested Visits Authorized [id number] Closed Evaluate and Treat 11/18/2013 05/17/2014 1 1 Reason for Visit * Reason Comments Schedule Office Case Encounter Details Date Type Department Care Team (Latest Contact Info) Description 11/18/2013 9:30 AM EST Office Visit Hematology [place] [address] Flavia Chavez MD [facility] HEMATOLOGY/[place] [address] Pre-op exam (Primary Dx); Varicose veins; Morbid obesity; Chronic anticoagulation Discharge Disposition: Home Social History Tobacco Use [...] Sign Reading Time Taken Comments Blood Pressure 128/62 11/18/2013 9:17 AM EST Pulse 85 11/18/2013 9:17 AM EST Temperature 36.9 ??C (98.4 ??F) 11/18/2013 9:17 AM ES T Respiratory Rate 22 11/18/2013 9:17 AM EST Oxygen Saturation 98% 11/18/2013 9:17 AM EST Inhaled Oxygen Concentration - - Weight 113.3 kg (249 lb 12.5 oz) 11/18/2013 9:17 AM EST Height 174 cm (5' 8.5) 11/18/2013 9:17 AM EST Body Mass Index 37.42 11/18/2013 9:17 AM EST documented in this encounter Progress Notes * Flavia Maxwell MD - 11/18/2013 9:20 AM EST [facility] Department of Medicine [place] [address] [facility] THROMBOSIS CONSULTATION DATE OF VISIT 11/18/2013 Patient Eugene Rueda 1950 REFERRING PHYSICIAN NARDA ALLEN APRN PRIMARY CARE PHYSICIAN MANOLO CASTRO MD REASON FOR CONSULTATION Perioperative management of anticoagulation HISTORY OF THE PRESENT ILLNESS Eugene Rueda is a 62 y.o. man with history of atrial fibrillation on chronic anticoagulation, who is seen in consultation at the request of Narda Allen APRN for perioperative management of anticoagulation. The history is obtained from the patient, and I have reviewed extensive medical records provided by the referring physician and located in the electronic medical record to fill in gaps in the patient's recollection of events, treatments and outcomes. Mr. Rueda is planning to have a bariatric surgery in the near future. He has successfully lost 10 lbs within a few weeks by diet change. He has history of chronic atrial fibrillation on warfarin for at least 8 years. He denies any history of stroke, MN. No history of DVT or PE. His INR has been well regulated. He requires once a month INR monitoring. He denies any bleeding complication on warfarin. He underwent multiple surgeries in the past that required an interruption of his anticoagulation. However, he has never used enoxaparin for bridging. He does not know how to self inject, but thinks that he can do it. BARIATRIC SURGERY POST-OPERATIVE THROMBOSIS RISK FACTORS Risk Factor Comment BMI >60 kg/m2 Previous VTE BMI >50 kg/m2 Age >50 Y Documented thrombophilia Venous insuff/varicose veins Y Oral contraceptive/HRT use Current smoker Obstructive sleep apnea Y THROMBOSIS RISK FACTORS ([id number] VASc) Risk Factor Points Comment Congestive heart failure/LV dysfunction 1 Hypertension 1 1 Age >/= 75 2 Diabetes 1 1 Stroke/TIA/TE 2 Vascular disease (MN/PAD/Aortic plaque) 1 Age 65-74 1 Sex = female 1 Total Score Risk Category Score interpretation: Low risk = 0; Intermediate risk = 1; High risk >/= 2 Lip et al., Refining clinical risk stratification for predicting stroke and thromboembolism in atrial fibrillation using a novel risk factor-based approach: The Euro heart survey on atrial fibrillation. Chest 2010;137:263-272. PAST MEDICAL HISTORY Patient Active Problem List Diagnosis Code ??? Hip arthritis 716.95 ??? S/P knee replacement V43.65 ??? HTN (hypertension) 401.9 ??? Atrial fibrillation 427.31 ??? PVD (peripheral vascular disease) 443.9 ??? DM (diabetes mellitus) 250.00 ??? CARLOS A (obstructive sleep apnea) 327.23 ??? Type 2 diabetes mellitus 250.00 ??? GERD (gastroesophageal reflux disease) 530.81 ??? Varicose veins 454.9 ??? Carpal tunnel syndrome 354.0 ??? Asbestosis 501 ??? Pterygium 372.40 ??? Fatigue 780.79 ??? Depression 311 ??? Decreased hearing, wears hearing aid right ear 389.9 ??? Hyperlipidemia 272.4 ??? Chronic anticoagulation V58.61 ??? History of renal stone ~1980s V13.01 OPERATIVE PROCEDURES Hernia repair October 2012 Carpal tunnel surgery Bilateral TKA Ronnell fundoplicatio Vasectomy Tonsillectomy MEDICATIONS Current Outpatient Prescriptions on File Prior to Visit Medication Sig Dispense Refill ??? metFORMIN (GLUCOPHAGE) 500 mg tablet Take 1,000 mg by mouth 2 times daily (with meals). ??? venlafaxine (EFFEXOR-XR) 75 mg 24 hr capsule Take 75 mg by mouth daily. ??? ramipril (ALTACE) 10 mg capsule ??? warfarin (COUMADIN) 5 mg tablet ??? terazosin (HYTRIN) 2 mg capsule ??? lovastatin (MEVACOR) 20 mg tablet ??? DILTiazem (CARDIZEM CD) 240 mg 24 hr capsule ??? ibuprofen (ADVIL;MOTRIN) 400 mg tablet Take 400 mg by mouth as needed. Rarely takes for back pain Current Facility-Administered Medications on File Prior to Visit Medication Dose Route Frequency Provider Last Rate Last Dose ??? [COMPLETED] barium sulfate (EZPAQUE) oral suspension 355 mL 355 mL Oral Once PRN Luther Price MD 355 mL at 11/18/13 0906 ??? [COMPLETED] barium sulfate (POLIBAR PLUS) oral suspension 130 mL 130 mL Oral Once PRN Luther Price MD 130 mL at 11/18/13 0906 ADVERSE DRUG REACTIONS Allergies as of 11/18/2013 ??? 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 No tobacco No alcohol REVIEW OF SYSTEMS Fevers/chills/sweats No Recent infections No Unexplained weight loss No Headache/lightheadedness/syncope No Sinus pain/pressure No Oral sores/lesions/bleeding No Sore throat/dysphagia No Nosebleeds No Cough/SOB/chest pain/heart racing No Nausea/vomiting/dyspepsia No Abdominal pain No Diarrhea/constipation No Urinary pain, burning, incontinence No Hematuria No Penile discharge/bleeding No Skin rashes/ulcers No Back/joint pain/swelling No Leg swelling/pain/redness No Bruising/petechiae/bleeding/melena No Sensory/motor No Polydipsia/polyuria/heat/cold intol No Lumps/bumps/swollen glands No Other Negative except as above PHYSICAL EXAMINATION BP 128/62 Pulse 85 Temp 36.9 ??C (98.4 ??F) (Oral) Resp 22 Ht 174 cm (5' 8.5) Wt 113.3 kg (249 lb 12.5 oz) BMI 37.42 kg/m2 SpO2 98% GENERAL: Well-appearing, articulate white male. HEENT: Oropharynx clear; no mucosal lesions, petechiae, bleeding, thrush or ulcers. NECK: Supple; no cervical, supraclavicular or submental adenopathy. CHEST/LUNGS: Clear to auscultation/percussion. No rales, rhonchi, wheezes. HEART: Irregularly irregular; no murmur, rub, gallop GASTROINTESTINAL: Abdomen soft, non-tender, no hepatosplenomegaly. GENITOURINARY: Exam deferred. EXTREMITIES: No clubbing, cyanosis or edema. No erythema, tenderness or palpable cords. + venous varicosities. + skin discoloration and hemosiderin deposits. Peripheral pulses palpable. MUSCULOSKELETAL: Spine nontender. Full ROM all joints. No acutely inflamed joints. SKIN: No ecchymoses, petechiae, ulcers or rashes. LYMPH: No palpable lymph nodes. NEUROLOGIC: Alert, oriented. Speech clear, coherent. No focal deficits noted. PSYCHIATRIC: Appropriate affect, no apparent distress. LABORATORY STUDIES Ref. Range 11/03/2013 10:21 WBC Latest Range: 4.0-10.0 x10(3)/mcL 8.0 RBC Latest Range: 4.63-6.08 x10(6)/mcL 4.58 (L) Hemoglobin Latest Range: 13.7-17.5 gm/dL 13.2 (L) Hematocrit Latest Range: 40.0-51.0 % 39.1 (L) MCV Latest Range: 79.0-92.0 fL 85.4 MCH Latest Range: 25.6-32.2 pg 28.8 MCHC Latest Range: 32.0-36.5 gm/dL 33.8 RDWSD Latest Range: 35.0-46.0 fL 43.3 RDWCV Latest Range: 10.9-14.4 % 14.0 Platelets Latest Range: 145-370 x10(3)/mcL 199 MPV Latest Range: 9.0-12.0 fL 9.2 Sodium Latest Range: 135-145 mmol/L 139 Potassium Latest Range: 3.5-5.0 mmol/L 3.9 Chloride Latest Range: 98-107 mmol/L 103 CO2 Latest Range: 22-31 mmol/L 23 Anion Gap Latest Range: 5-15 mmol/L 13 BUN Latest Range: 10-20 mg/dL 19 Creatinine Latest Range: 0.80-1.50 mg/dL 0.98 Estimated GFR Latest Range: >=60 >60 Glucose Lvl Latest Range: 60-199 mg/dL 155 Calcium Latest Range: 8.5-10.5 mg/dL 9.5 Hemoglobin A1C Latest Range: <=5.6 % 7.9 (H) Est Avg Gluc No range found 180 Uric Acid Latest Range: 3.5-8.5 mg/dL 6.3 Total Protein Latest Range: 6.4-8.3 gm/dL 6.8 Albumin Latest Range: 3.2-5.2 gm/dL 4.3 Total Bilirubin Latest Range: 0.2-1.3 mg/dL 0.5 Bili, Direct Latest Range: 0.0-0.3 mg/dL 0.1 Alk Phos Latest Range: 40-120 unit/L 51 AST Latest Range: 0-39 unit/L 18 ALT Latest Range: 0-55 unit/L 22 GGT Latest Range: 8-61 unit/L 27 Ferritin Latest Range: 30-400 ng/mL 118 Folate Lvl Latest Range: 4.6-34.8 ng/mL 12.3 Iron Latest Range: 45-160 mcg/dL 67 TIBC Latest Range: 250-450 mcg/dL 311 Iron Saturation Latest Range: 20-50 % 22 Vitamin B-12 Latest Range: 207-974 pg/mL 701 25-OH Vit D Total Latest Range: 30-100 ng/mL 46 Vitamin A Latest Range: 32.5-78.0 mcg/dL 49.8 Free T4 Latest Range: 0.90-1.60 ng/dL 0.72 (L) TSH Latest Range: 0.27-4.20 mcIU/mL 4.30 (H) T Uptake Latest Range: 0.80-1.30 ratio 1.16 PTH Latest Range: 15-65 pg/mL 40 RADIOGRAPHIC STUDIES None IMPRESSION Eugene Rueda is a 62 y.o. man with history of chronic atrial fibrillation on anticoagulation with warfarin who is going to undergo a bariatric surgery in the near future. He is here for perioperative management of his anticoagulation. His [id number] score is 2 for his DM and HTN.The adjust stroke rate/year is about 2.2%. He is considered to be at low risk of thromboembolic event from his atrial fibrillation with [id number] score of 2 during the interruption of warfarin. He has no history of mechanical heart valve nor historyof ischemic stroke or arterial thrombosis. However, he is at high risk of a bariatric surgery associated VTE in the presence of 3 risk factors including age > 50, history of CARLOS A and venous insufficiency. We would recommend to discontinue warfarin 5 days before surgery. He would not need be bridged with enoxaparin preoperatively for his atrial fibrillation. I recommend the use of enoxaparin 40 mg SC BID which is the recommended dose for thrombophylaxis for bariatric surgery postoperatively and transitioned back to warfarin. I referred him to see our physical therapist for compression stocking fitting. I encourage him to wear them during waking hours on daily basis. I think he may benefit from wearing them on daily basis, not only at high risk postoperatively to prevent progression of his venous insufficiency. I recommend to use sequential compression device throughout hospitalization. Early ambulation is encouraged postoperatively. I do not recommend a prophylactic IVC filter placement. The study showed that there is no reductionin VTE in gastric bypass surgery patients who underwent an IVC filter insertion preoperatively. Conversely, there is a higher rate of complications in the patients with IVC filter insertion. (Elsa et al., Yennifer Surg 2010;252:313-318) PLAN/RECOMMENDATIONS BRIDGING PROTOCOL TO BEGIN 5 DAYS PRIOR TO PROCEDURE Day Treatment -6 Last dose of warfarin -5 NO warfarin and NO enoxaparin -4 NO warfarin and NO enoxaparin -3 NO warfarin and NO enoxaparin -2 NO warfarin and NO enoxaparin -1 NO warfarin and NO enoxaparin Check INR; if >1.5 administer 2.5 mg vitamin K orally POST PROCEDURE RECOMMENDATIONS: DAY 0 Administer enoxaparin [...] to three more days and check again. In summary: Bridging as above Compression stocking during waking hours (below the knee, 20-30 mmHg) Sequencial compression device throughout hospitalization Early ambulation postoperatively No prophylactic IVC filter No concurrent NSAIDs due to increased risk for bleeding Eugene Rueda had the opportunity to ask questions and indicated that all his questions were answered to his satisfaction. While I won't schedule a routine follow up, he knows that he can call our office, should he have any questions or concerns. Flavia Maxwell MD Instructor of Medicine, [facility] Addendum: 12/21/2013 I have made some correction of the bridging protocol as outline above. I will mail the new protocolto him and notify the patient. I have discussed the change of my recommendation with his rigging helper Dr. Fong and Narda Allen APRN who agreed with the plan. Flavia Maxwell MD Instructor of Medicine[facility] documented in this encounter Plan of Treatment Upcoming Encounters Date Type Department Care Team (Late st Contact Info) Description 05/15/2024 10:00 AM EDT [place] [address] Catrachito Mehta MD [facility] [place] [address] Scheduled Referrals Name Type Priority Associated Diagnoses Orde r Schedule Referral to Physical Therapy Outpatient Referral Routine Varicose veins Ordered: 11/18/2013 documented as of this encounter Visit Diagnoses Diagnosis Pre-op exam- Primary Preoperative examination, unspecified Varicose veins Asymptomatic varicose veins Morbid obesity Chronic anticoagulation Encounter for long-term (current) use of anticoagulants documented in this encounter Care Teams Public Relations Associate Relationship Specialty Start Date End Date Manolo Castro MD [address] [place] [address] PCP - General 05/14/12 04/21/17 documented as of this encounter
--- OUTSIDE RECORDS SUMMARY | 2024-04-27 14:56 | XMS_ITS | Encounter Summary ---
Author Organization [facility] Address [facility] [place] [address] Care Team Providers Care Search Engine Optimization Specialist Name Role Phone Manolo Castro MD Primary Care Provider [phone] Reason for Visit * Reason Comments Left Hip Pain hip pain Encounter Details Date Type Department Care Team (Late st Contact Info) Description 07/10/2013 10:05 AM EDT [place] [address] Momo Blount MD [facility] [place] [address] Hip arthritis (Primary Dx) Discharge Disposition: Home Social History [...] Sign Reading Time Taken Comments Blood Pressure 131/74 07/10/2013 10:06 AM EDT Pulse 98 07/10/2013 10:06 AM EDT Temperature - - Respiratory Rate - - Oxygen Saturation - - Inhaled Oxygen Concentration - - Weight 115.8 kg (255 lb 4.8 oz) 013 10:06 AM EDT Height 172.7 cm (5' 8) 07/10/2013 10:0 6 AM EDT Body Mass Index 38.82 07/10/2013 10:06 AM EDT documented in this encounter Progress Notes * Jose C Ledbetter PA - 07/10/2013 10:38 AM EDT DATE OF VISIT: 07/10/2013. CHIEF COMPLAINT: Left hip pain. HISTORY OF PRESENT ILLNESS: A 62-year-old male who presents today for evaluation of his left hip. He describes four weeks of symptoms from the posterolateral aspect of his left hip. He denies any injury or new activities to precede the pain. The pain is most pronounced with weightbearing activities, but is present at a low level most of the time. He finds straight walking is fairly well tolerated, but if he turns or pivots, he has increased pain that would make his leg almost feel like it would give out on him. He denies radicular or referred components. No previous difficulty with the hip. No prior injuries. Aside from the hip, he has felt well. He has had 24 hours of stiffness from his right knee which was replaced 10 years ago. He denies fevers, chills, infections. No chest pain or shortness of breath. He intermittently takes NSAIDs, but he has admittedly done no other therapies to improve his symptoms. PHYSICAL EXAMINATION: A 62-year-old male ambulatory without antalgia or assistive devices. Standing alignment shows no obvious deformity. Both lower extremities show stigmata of chronic vascular congestion. Pedal pulses are intact and equal bilaterally. Skin is intact. He is able to straight leg raise on both sides without difficulty or lag. No effusion to either knee. No increased pain or laxity with varus and valgus stress. Range of motion is from 0 to 120. Hip range of motion is well tolerated on the right side without pain or apprehension. On the left side, flexion and external rotation are well tolerated. Internal rotation beyond 10 degrees is provocative. Impingement is provocative. There is no trochanteric tenderness. No focal motor or sensory deficits at the lower extremities. Good strength with resisted hip and knee range of motion. X-RAYS: X-rays taken today reviewed with the patient in the office, two views of the left hip showing abundant osteophyte formation about the acetabulum as well as the femoral head. There is joint space narrowing compared to the right side. No evidence for avascular necrosis or dysplasia. No signs of fracture or dislocation. ASSESSMENT: Left hip osteoarthritis. PLAN: We discussed his symptoms. We reviewed his x-rays and correlated exam findings. My sense is that the degenerative changes in the left hip are likely the source of his symptoms. We discussed the range of treatment options. We discussed potential cortisone injection. He does not feel this is warranted at this point. I did give him a prescription for Celebrex, as he is on Coumadin he cannot tolerate other NSAIDs. We will plan to see him back again in the office as needed for further evaluation. documented in this encounter Plan of Treatment Upcoming Encounters Date Type Department Care Team (Late st Contact Info) Description 05/15/2024 10:00 AM EDT [place] [address] Catrachito Mehta MD [facility] [place] [address] documented as of this encounter Visit Diagnoses Diagnosis Hip arthritis- Primary Unspecified arthropathy, pelvic region and thigh documented in this encounter Care Teams Search Engine Optimization Specialist Relationship Specialty Start Date End Date Manolo Castro MD [address] [place] [address] PCP - General 05/14/12 04/21/17 documented as of this encounter
--- OUTSIDE RECORDS SUMMARY | 2024-04-27 14:56 | XMS_ITS | Encounter Summary ---
Author Organization [facility] Address [facility] [place] [address] Care Team Providers Care Rn Enterostomal Name Role Phone Manolo Castro MD Primary Care Provider Encounter Details Date Type Department Care Team (Late st Contact Info) Description 11/18/2013 1:10 PM EST Office Visit Cardiology at [address] [address] Luis M F[address] [facility] [place] [address] Atrial fibrillation (Primary Dx) Discharge Disposition: Home Social History [...] Sign Reading Time Taken Comments Blood Pressure 112/68 11/18/2013 1:10 PM EST Pulse 94 11/18/2013 1:10 PM EST irregular Temperature - - Respiratory Rate - - Oxygen Saturation 97% 11/18/2013 1:1 0 PM EST at rest, room air Inhaled Oxygen Concentration - - Weight 112.5 kg (248 lb) 11/18/2013 1:1 0 PM EST Height 175.3 cm (5' 9) 11/18/2013 1:10 PM EST Body Mass Index 36.62 11/18/2013 1:10 PM EST documented in this encounter Progress Notes * Luis M Fong MD - 11/18/2013 1:44 PM EST Cardiology Office Note I was asked by this patient's referring doctor to see this patient for their cardiac disease. PCP: MANOLO CASTRO MD The patient is a 62 y.o. year old male with: pre-op bariatric surgery Patient Active Problem List Diagnosis ??? Decreased hearing, wears hearing aid right [...] (peripheral vascular disease) ??? DM (diabetes mellitus) Current Outpatient Prescriptions Medication Sig Dispense Refill ??? GLYBURIDE ORAL Take by mouth 2 times daily. ??? DILTiazem (DILACOR XR) 240 mg 24 hr capsule Take 240 mg by mouth daily. ??? ramipril (ALTACE) 10 mg capsule Take 10 mg by mouth daily. ??? terazosin (HYTRIN) 2 mg capsule Take 2 mg by mouth nightly. ??? metFORMIN (GLUCOPHAGE) 500 mg tablet Take 1,000 mg by mouth 2 times daily (with meals). ??? venlafaxine (EFFEXOR-XR) 75 mg 24 hr capsule Take 75 mg by mouth daily. ??? warfarin (COUMADIN) 5 mg tablet ??? lovastatin (MEVACOR) 20 mg tablet ??? [DISCONTINUED] ramipril (ALTACE) 10 mg capsule ??? [DISCONTINUED] terazosin (HYTRIN) 2 mg capsule ??? ibuprofen (ADVIL;MOTRIN) 400 mg tablet Take 400 mg by mouth as needed. Rarely takes for back pain Current Facility-Administered Medications Medication Dose Route Frequency Provider Last Rate Last Dose ??? [COMPLETED] barium sulfate (EZPAQUE) oral suspension 355 mL 355 mL Oral Once PRN Luther Price MD 355 mL at 11/18/13905 ??? [COMPLETED] barium sulfate (POLIBAR PLUS) oral suspension 130 mL 130 mL Oral Once PRN Luther Price MD 130 mL at 11/18/13905 Review of patient's allergies indicates no known allergies. Cardiac risk factors: Lipid Status-- LDL 108, HDL 31, Trigylcerides 126 and total cholesterol 158 He is being treated with a statin Diabetes yes(x) No() On medications for about 5 years Current smoking yes() no(x) Hypertension yes(x) No() treated and doing well Family history yes(x) No() Father with an MO in his 60's Intercurrent Events: 1) Hospitalizations--abdominal hernia repair 2) Syncope yes() no (x) 3) AICD status yes () no(x) 4) Pacemaker status yes() no(x) 5) Medication changes since last visit N/A 6) Home O2 yes() no (x) Test Results: Recent Results (from the past 72 hour(s)) EKG 12-LEAD Component Value Range Ventricular rate 103 Atrial Rate 131 QRS Duration 86 Q-T Interval 306 QTC Calculated (Bezet) 400 Calculated R Cascade 67 Calculated T Cascade 13 INTERPRETATION Value: Atrial fibrillation with rapid ventricular response Low voltage QRS Abnormal ECG When compared with ECG of 09-JUL-2002 08:57, Atrial fibrillation has replaced Sinus rhythm Vent. rate has increased BY 34 BPM Nonspecific T wave abnormality now evident in Inferior leads Review of Systems - Negative except bilateral knee replacements 11 years ago after he could not walk. Subjective: He is considering Bariatric surgery to treat his obesity issue. He has known about his atrial fibrillation for a number of years and this is uncertain. He thinks it has been present for at least 4 years and has been on coumadin. 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 He [facility] the [facility] [place] the [place]. He walks about 1 mile two days a week. Physically he does not getr any major regular exercise but he can do what he likes without symptoms. He has sleep apnea and is doing well on CPAP. Objective: Neck veins are visible and not distended. The carotid upstrokes are normal without bruits. The chest is clear. Cardiac sounds are notable for atrial fibrillation at a controlled rate. The abdomen is soft and non-tender without organomegaly or mass. There is no edema. The extremities are warm and well perfused. Blood pressure 112/68, pulse 94, height 175.3 cm (5' 9), weight 112.492 kg (248 lb), SpO2 97.00%. Assessment: This gentleman is being considered for bariatric surgery. His vascular risk factors arewell controlled. While is does not get regular physical activity, he is still working and can readily do what he likes without symptoms. Today's EKG confirms atrial fibrillation at a reasonable rate. Plan: Obtain an echocardiogram today. I will call him with the results. If all looks well I think he will do well with the planned surgery. Cc:MANOLO CASTRO MD documented in this encounter Plan of Treatment Upcoming Encounters Date Type Department Care Team (Late st Contact Info) Description 05/15/2024 10:00 AM EDT Office [place] [address] [facility] [place] [address] documented as of this encounter Procedures Procedure Name Priority Date/Time Associated Diagnosis Comments EKG 12-LEAD Routine 11/18/2013 1:19 PM EST Atrial fibrillation documented in this encounter Results * Echocardiogram Transthoracic(Leb) (11/18/2013 3:14 PM EST) EF 60 [place] SYSTEM Anatomical Region Laterality Modality Other 11/18/2013 Narrative 11/18/2013 3:46 PM EST Procedure: ? Transthoracic Echocardiogram Patient: ? YANIV Lopez ?(Age): 1950(62) Med Rec#: ?[id number] ? Sex: ?M ? [place] [place] Ht / Wt: ??175.3(cm)/112.4 Pt. Loc: ? Echo Lab ? BSA: ?2. Study Date: ?11/18/2013 ? Pt. Type: Outpatient Tape: ? Referring: Luis M Fong Motor Vehicle Or Caravan Salesperson: [facility] Food Porter: Milka Hope Diagnosis: ??Atrial Fibrillation (427.31) CPT Code(s): ??Echo Full (91568), ??Spectral Doppler (46875), ??Color Doppler (51218), ??Definity (81419QI), Indication(s):Rhythm: HR ?BP ?152/74 ?? SUMMARY: 1. [...] ? Mid-Inferior ?Normal ? Mid-Inferoseptal ?Normal ? [place]-Septal ? Normal ? [place]-Anterior ? Normal ? [place]-Lateral ?Normal ? [place]-Inferior ? Normal ? [place]-Tip ?Normal ? Chambers ?Value ?Units (Range) ? [...] 11/18/2013 15:45:20 Images reviewed and interpretation verified [facility] Cardiac Ultrasound Laboratory Procedure Note Moris Hargrove MD - 11/18/2013 Procedure: Transthoracic Echocardiogram Patient: YANIV LADD(Age): 1950(62) Med Rec#: [id number] Sex: M [place] [facility] [place] Ht / Wt: 175.3(cm)/112.4 Pt. Loc: Echo Lab BSA: 2.26 Study Date: 11/18/2013 Pt. Type: Outpatient Tape: Referring: Luis M Fong Motor Vehicle Or Caravan Salesperson: [employer] Food Porter: Milka Hope Diagnosis: Atrial Fibrillation (427.31) CPT Code(s): Echo Full (85778), Spectral Doppler (23592), Color Doppler (61340), Definity (51594XQ), Indication(s):Rhythm: HR BP 152/74 SUMMARY: 1. Technically [...] Normal Mid-Posterolateral Normal Mid-Inferior Normal Mid-Inferoseptal Normal [place]-Septal Normal [place]-Anterior Normal [place]-Lateral Normal [place]-Inferior Normal [place]-Tip Normal Chambers Value Units (Range) LV EF [...] 11/18/2013 15:45:20 Images reviewed and interpretation verified [facility] Cardiac Ultrasound Laboratory Luis M Fong MD ECHO ORDERABLES * EKG 12 Lead (11/18/2013 1:19 PM EST) Ventricular rate 103 BPM MUSE SYSTEM Atrial Rate 131 BPM MUSE SYSTEM QRS Duration 86 ms MUSE SYSTEM Q-T Interval 306 ms MUSE SYSTEM QTC Calculated (Bezet) 400 ms MUSE SYSTEM Calculated R Cascade 67 degrees MUSE SYSTEM Calculated T Cascade 13 degrees MUSE SYSTEM INTERPRETATION Atrial fibrillation Low voltage QRS Abnormal ECG When compared with ECG of 09-JUL-2002 08:57, Atrial fibrillation has replaced Sinus rhythm Vent. rate has increased BY ??34 BPM Nonspecific T wave abnormality now evident in Inferior leads I personally reviewed the tracing and edited the fellows interpretation Confirmed by fellow MD Wilbert, Jose Francisco Lucas ([id number]) on 11/19/2013 9:00:46 AM Confirmed by MD Tho, Sj ([id number]) on 11/19/2013 1:43:46 PM MUSE SYSTEM 11/18/2013 1:19 PM EST 11/19/2013 1:43 PM EST Luis M Fong MD ECG ORDERABLES MUSE SYSTEM documented in this encounter Visit Diagnoses Diagnosis Atrial fibrillation- Primary Atrial fibrillation documented in this encounter Care Teams Rn Enterostomal Relationship Specialty Start Date End Date Manolo Castro MD [place] [phone] (Work) PCP - General 05/14/12 04/21/17 documented as of this encounter
--- OUTSIDE RECORDS SUMMARY | 2024-04-27 14:56 | XMS_ITS | Encounter Summary ---
Author Organization [facility] [place] [address] Care Team Providers Care Photographic Process Screen Maker Name Role Phone Manolo Castro MD Primary Care Provider [phone] Reason for Visit * Reason Onset Date Comments Other 12/18/2013 Encounter Details Date Type Department Care Team ([facility] Contact Info) Description 12/18/2013 Telephone [place] [address] Narda Allen, COAGULATOR [facility] [place] [place] [address] Other Social History Tobacco Use Types Packs/Day [...] * Telephone Encounter - Narda Allen - 12/18/2013 8:42 AM EDT Dentist was contacted by both his cell and home phone numbers to advise him that his surgery date will need to be postponed until further testing is done, as well as a final approval in place from his insurer to proceed with bariatric surgery. A message was left to call the bariatric surgery program. documented in this encounter Plan of Treatment Upcoming Encounters Date Type Department Care Team (Late st Contact Info) Description 05/15/2024 10:00 AM EDT [place] [address] [facility] [place] [address] documented as of this encounter Visit Diagnoses Not on filedocumented in this encounter Care Teams Photographic Process Screen Maker Relationship Specialty Start Date End Date Manolo Castro MD [address] [place] [address] PCP - General 05/14/12 04/21/17 documented as of this encounter
--- OUTSIDE RECORDS SUMMARY | 2024-04-27 14:56 | XMS_ITS | Encounter Summary ---
Author Organization Counts Include [facility] [place] [address] Care Team Providers Care Cloth Hand Name Role Phone Manolo Castro MD Primary Care Provider [phone] Encounter Details Date Type Department Care Team (Late st Contact Info) Description 11/18/2013 12:30 PM EST Office Visit Hematology [place] [address] Rashida Marc, PT [facility] PHYSICAL MEDICINE & [place] [address] Manolo Castro MD [address] [place], [place] [id number] Other problems of limbs (Primary Dx) Discharge Disposition: Home Social History [...] as of this encounter Progress Notes * Rashida Marc, PT - 11/18/2013 12:32 PM EST PHYSICAL THERAPY INITIAL EXAMINATION Date of Exam/First treatment: 11/18/2013 Date of Onset 11/18/2013 Referring Provider: Flavia Maxwell MD Diagnosis: Other problems of limbs Medicare Cert Period: 11/18/2013 - 02/15/2014 Total Treatment time: 30 minutes Total Timed Code Treatment: 30 minutes 1 evaluation CURRENT HISTORY: Eugene Rueda is a 62 y.o. male with bariatric surgery in the near future. Will then be at highrisk of DVT. 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 PAIN: none FUNCTIONAL LIMITATIONS: On a difficulty scale with 0 being unable to perform an activity, and 10 being able to perform at a pre injury level At risk for DVT CLINICAL FINDINGS: 1) observation, posture, gait: Wide base of support 2) palpation/inspection Wine glass coloring on both legs to mid calf with healed ulcers 3) strength: normal But sob with walking around hospital 4) ROM/flexibility: full rom 4) LE circumferences (cm) Right Left Mid foot Ankle 22.0 22.0 Calf 39.0 39.0 D Knee Knee +12 Upper thigh A-D Length A-G Length 5'8 248 lbs and wears size 9 CLINICAL EVALUATION AND DIAGNOSIS: pt to benefit form wearing Compression knee high during the day,exercise and drink more water. The patient's rehabilitation potential is good GOALS: Therapy Short Term Goals (2 weeks) 1. Pt understands need for compression garment to decrease risk of post- thrombotic syndrome. 2. Wearing appropriate stockings daily. 3. Decreased pain and swelling Therapy Review Trainer Goals: ongoing 1. maintain reduction in swelling & pain. INITIAL TREATMENT INCLUDED: Evaluation and fitting of garments. Pt to benefit from wearing knee highs 20-30 size L and XL depending on sock. Pt would like to try ordering L from [employer] padded athletic sock. He willdo this on his own and was given information for this. PLAN: Frequency and duration: no follow up needed Treatment: Stretching exercises as needed Reinforcing factors which decrease risk of recurrence Instruction in use and care of garment The plan has been discussed with the patient and he has agreed with it. RASHIDA MARC PT, PT documented in this encounter Plan of Treatment Upcoming Encounters Date Type Department Care Team (Late st Contact Info) Description 05/15/2024 10:00 AM EDT Office [place] [address] Catrachito Mehta MD [facility] [place] [address] documented as of this encounter Visit Diagnoses Diagnosis Other problems of limbs- Primary documented in this encounter Care Teams Cloth Hand Relationship Specialty Start Date End Date Manolo Castro MD [address] [place] [id number] PCP - General 05/14/12 04/21/17 documented as of this encounter
--- OUTSIDE RECORDS SUMMARY | 2024-04-27 14:56 | XMS_ITS | Encounter Summary ---
Author Organization [facility] [place] [address] Care Team Providers Care Electronics Tester Name Role Phone Manolo Castro MD Primary Care Provider [phone] Reason for Visit * Reason Onset Date Comments Follow-up 12/21/2013 Encounter Details Date Type Department Care Team (Late Contact Info) Description 12/21/2013 Telephone [place] [address] Narda Allen, [employer] COORDINATOR [facility] [place] [address] Follow-up Social History Tobacco Use Types Packs/Day [...] * Telephone Encounter - Narda Allen - 12/21/2013 1:58 PM EDT I spoke with Eugene to let him know that his gastric emptying scan date has been moved up to 12/23 so that a repeat EGD can be done on 12/25. The importance of fasting after midnight was highlighted. documented in this encounter Plan of Treatment Upcoming Encounters Date Type Department Care Team (Late st Contact Info) Description 05/15/2024 10:00 AM EDT [place] [address] Catrachito Mehta MD [facility] [place] [address] documented as of this encounter Visit Diagnoses Not on filedocumented in this encounter Care Teams Electronics Tester Relationship Specialty Start Date End Date aMnolo Castro MD [address] [place] [address] PCP - General 05/14/12 04/21/17 documented as of this encounter
--- OUTSIDE RECORDS SUMMARY | 2024-04-27 14:56 | XMS_ITS | Encounter Summary ---
Author Organization [facility] [place] [address] Care Team Providers Care Food Service Agent Name Role Phone Manolo Castro MD Primary Care Provider Encounter Details Date Type Department Care Team (Late st Contact Info) Description 12/01/2013 1:40 PM EST Office [place] [address] Narda Allen APRN [facility] [place] [address] Wally Pfeiffer MD [facility] [place] [address] Obesity (Primary Dx) Discharge Disposition: Home Social History [...] as of this encounter Progress Notes * Wally Pfeiffer MD - 12/01/2013 2:19 PM EST Eugene Rueda is a 62-year-old gentleman who presents referred for possible bariatric surgery. He is a gentleman that has currently had full [place] [facility] [place] and meets NIH criteria [...] majority of our 40 minutes today in [id number] conversation regarding various treatment options for obesity [...] with that plan. documented in this encounter Plan of Treatment Upcoming Encounters Date Type Department Care Team (Late st Contact Info) Description 05/15/2024 10:00 AM EDT [place] [address] Catrachito Mehta MD [facility] [place] [address] documented as of this encounter Visit Diagnoses Diagnosis Obesity- Primary Obesity, unspecified documented in this encounter Care Teams Food Service Agent Relationship Specialty Start Date End Date Manolo Castro MD [address] [place] [address] PCP - General 05/14/12 04/21/17 documented as of this encounter
--- OUTSIDE RECORDS SUMMARY | 2024-04-27 14:56 | XMS_ITS | Encounter Summary ---
Author Organization [facility] [place] [address] Care Team Providers Care Vinyl Top Installer Name Role Phone Manolo Castro MD Primary Care Provider [phone] Encounter Details Date Type Department Care Team (Late st Contact Info) Description 02/08/2014 9:48 AM EDT Anesthesia Event [place] [address] Adis Oliva MD [facility] [place] [address] Anesthesia Record Procedure Summary Procedure Name Responsible Anesthesiologist Anesthesia Start Time Anesthesia Stop Time LAPAROSCOPIC REVISION OF DELROY FUNDOPLASTY (WRVU 48.75) (Abdomen) Adis Oliva MD 02/08/14 0948 02/08/14 1523 Events Date Time Event Comment 02/08/2014 0923 0948 Start 0951 AN Verify 0953 An Start Data 0959 An Induction 1004 An Intubation 1010 Anesthesia Ready 1011 Break/Relief In 1032 Break/Relief Out 1033 an el now Abdominal insuf flation 1040 Quick Note Steep reverse t -gray 1244 Break/Relief In 1315 Break/Relief Out 1409 an el now Slowly advanced 30Fr esophageal dilator/bougie per surgical team, s incidence, tolerated well. 1424 an el now Esophageal boug ie removed s incident as requested by surgical team 1434 an el now Surgical team p erformed esophagogastroscopy 1510 Extubation/LMA Out Extubatio n notes: SV c TV 360-410 RR 14-18. HOB elevated. ETT out c PP s/p deep pharyngeal suctioning. SV resumed, O2 via FM. VSS. Transported to recovery. 1511 an stop data 1522 Stop Arrived to yolie very, Monitors attached, VSS, O2 via FM, ventilating well. Reported SBAR to nurse. BS 170. Meds Name Total Midazolam 2 mg fentaNYL 50 mcg lidocaine IV 40 mg propofol 330 mg Rocuronium 170 mg ondansetron 8 mg Neostigmine 3.5 mg Glycopyrrolate 0.3 mg esmolol 130 mg ceFAZolin (ANCEF) 2g in dextrose 5% 50 m L 4 g propofol INF 391.88 mg metoprolol (LOPRESSOR) injection 4 mg lactated ringers infusion 1,000 mL 0 mL * Agents Name O2 Air Sevoflurane (et) Isoflurane (et) * Blood No blood administrations on file. Lines, Drains, and Airways Type Details Placement Removal (RETIRED) Peripheral IV Line - Single Lumen 02/08/14; 931; metacarpal vein (top of hand), left; hoql-ntt-jigply catheter system; 18 gauge, 1 in length; Yenifer Abernathy RN; intradermal injection, tolerated well, appears comfortable; 0; metacarpal vein (top of hand), left; 02/12/14; 1200 02/08/14 0932 by Annabella Alonso RN 02/12/14 1200 by Ora Vela RN ETT Mask Ventilation: Ea sy (1); ETT Type: Cuffed; ETT Size: 8 mm; Mac Blade: 4; Notes: Asleep, Pre-O2, Cricoid Pressure; Attempts: 2; Laryngoscopy Grade: 3; ETT Placement Verified By: Auscultation, Capnometry, Visual; Secured at Teeth: 22 cm; Removal Date: 02/08/14; Removal Time: 150902/08/14 1004 by Leilani Ahn CRNA 02/08/14 1510 by Leilani Ahn CRNA Urethral Catheter 02/08/14; 1005; indwelling double lumen catheter; 100% silicone; 16; inserted at this facility; 1; 5; 10; none; drainage bag to dependent drainage; thornton inserted by Dr Joel Shoemaker with clear yellow return; 02/09/14; 0815 02/08/14 1005 by Paulette Chawla RN 02/09/14 0815 by Milka Armstrong RN NG/OG Tube 02/08/14; 1010; nasogastric; 16 Fr; mouth; 02/08/14; 1046 02/08/14 1010 by Leilani Ahn, SENIOR PROPERTY ACCOUNTANT 02/08/14 1046 by Leilani Ahn CRNA Incision 02/08/14; 1030; abdo men; laparoscopic punctures (specify) (trocar sites x 6); 06/04/22 (LDA cleanup utility RA#[id number]); 1715 (LDA cleanup utility RA#[id number]) 02/08/14 1030 by Paulette Chawla RN 06/04/22 1715 by Kavitha Mcgee documented in this encounter Social History Tobacco [...] OR Notes * Anesthesia Postprocedure Evaluation - Adis Oliva MD - 02/08/2014 4:32 PM EDT Patient: Eugene Rueda Procedure(s) Performed: Procedure(s): LAPAROSCOPIC REVISION OF DELROY FUNDOPLASTY @LAPAROSCOPIC GASTROPLASTY, ENDOSCOPY, UPPER GI, DIAGNOSTIC, WITH OR WITHOUT SPECIMENS Actual Anesthetic: general Patient location: PACU Post-op pain: Adequate analgesia Post-op nausea: no nausea or vomiting Last Vitals: Filed Vitals: 02/08/14 1615 BP: 132/84 Pulse: 93 Temp: Resp: 16 Post-op cardiovascular and respiratory status: is stable Level of consciousness: awake Complications: no apparent complications and tolerated the procedure well Fluid Status: normal * Anesthesia Preprocedure Evaluation - Adis Oliva MD - 02/08/2014 9:21 AM EDT Pre-Anesthesia Evaluation for: Eugene Rueda a 63 y.o. male. Procedure(s): @LAPAROSCOPY, SURG/GASTRIC RESTRICTIVE PROC, LONGITUDINAL GASTRECTOMY LAPAROSCOPIC REVISION OF DELROY FUNDOPLASTY MODIFIER, HIATAL HERNIA MODIFIER , RECURRENT @LAPAROSCOPIC GASTROPLASTY, Patient Active Problem List Diagnosis ??? Obesity [...] OR MULTIPLE performed by Wally Pfeiffer MDat [facility] ??? Upper gi endoscopy, diagnostic 12/25/2013 EGD, UPPER GI ENDOSCOPY performed by Wally Pfeiffer MD at [facility] History Substance Use Topics ??? Smoking [...] exam Misc Assessment: IV access: Peripheral line Other exam findings: Anesthesia in past without issue. Recent cardiac eval and echo reviewed. Per patient BP and DM under control. Uses CPAP. Anesthesia Plan: ASA 3 general, with a(n) intravenous induction Std monitors, +/- second IV. Region - Other Informed Consent: Anesthetic plan and risks discussed with patient. Use of blood products discussed with patient whom consented to blood products. Plan discussed with SHASTA. [facility]. Assessment: documented in this encounter Miscellaneous Notes * Addendum Note - Kaushal Wu MD - 08/03/2014 9:17 AM EDT documented in this encounter Plan of Treatment Upcoming Encounters Date Type Department Care Team (Late st Contact Info) Description 05/15/2024 10:00 AM EDT [place] [id number] Catrachito Mehta MD [facility] [place] [address] documented as of this encounter Visit Diagnoses Not on filedocumented in this encounter Administered Medications Inactive Administered Medications - up to 3 most recent administrations Medication Order MAR Action Action Date Dose Rate Site ceFAZolin (ANCEF) 2g in dextrose 5% 50 mL 2 g, Intravenous, EVERY 3 HOURS, First dose on Sat02/08/14 at 0945, Until Discontinued, Intra-Operative (Intra-Procedure), Indication for (Active or Suspected): Prophylaxis Given 02/08/2014 2:00 PM EDT 2 g Given 02/08/2014 10:04 AM EDT 2 g esmolol (BREVIBLOC) injection PRN, Starting on Sat02/08/14 at 1000, Until Sat02/08/14 at 1523, Anesthesia Intra-op, Routine Given 02/08/2014 12:15 PM EDT 20 mg Given 02/08/2014 12:05 PM EDT 10 mg Given 02/08/2014 11:37 AM EDT 10 mg fentaNYL 50mcg/mL injection PRN, Starting on Sat02/08/14 at 1500, Until Sat02/08/14 at 1523, Pain, Anesthesia Intra-op, Routine Given 02/08/2014 3:00 PM EDT 50 mcg glycopyrrolate (ROBINUL) injection PRN, Starting on Sat02/08/14 at 1450, Until Sat02/08/14 at 1523, Anesthesia Intra-op, Routine Given 02/08/2014 2:50 PM EDT 0.3 mg lactated ringers infusion 1,000 mL 1,000 mL, at 100 mL/hr, Intravenous, CONTINUOUS, Starting on Sat02/08/14 at 0945, Until Sat02/08/14 at 1700, Day of Surgery (Day of Procedure) New Bag 02/08/2014 2:11 PM EDT mL New Bag 02/08/2014 11:30 AM EDT mL New Bag 02/08/2014 9:48 AM EDT mL lidocaine (PF) (XYLOCAINE) 100 mg/5 mL (2 %) injection PRN, Starting on Sat02/08/14 at 0958, Until Sat02/08/14 at 1523, Anesthesia Intra-op, Routine Given 02/08/2014 9:58 AM EDT 40 mg metoprolol (LOPRESSOR) injection PRN, Starting on Sat02/08/14 at 1253, Until Sat02/08/14 at 1523, High Blood Pressure, Anesthesia Intra-op, Routine Given 02/08/2014 2:44 PM EDT 1 mg Given 02/08/2014 2:00 PM EDT 1 mg Given 02/08/2014 1:06 PM EDT 1 mg midazolam (PF) (VERSED) 1 mg/mL injection PRN, Starting on Sat02/08/14 at 0948, Until Sat02/08/14 at 1523, Sleep, Anesthesia Intra-op, Routine Given 02/08/2014 9:48 AM EDT 2 mg neostigmine (PROSTIGMINE) injection PRN, Starting on Sat02/08/14 at 1450, Until Sat02/08/14 at 1523, Anesthesia Intra-op, Routine Given 02/08/2014 2:50 PM EDT 3.5 mg ondansetron (ZOFRAN) injection PRN, Starting on Sat02/08/14 at 1416, Until Sat02/08/14 at 1523, Nausea, Anesthesia Intra-op, Routine Given 02/08/2014 2:50 PM EDT 4 mg Given 02/08/2014 2:16 PM EDT 4 mg propofol (DIPRIVAN) 10 mg/mL bolus injection (Anesthesia) PRN, Starting on Sat02/08/14 at 0959, Until Sat02/08/14 at 1523, Anesthesia Intra-op Given 02/08/2014 2:09 PM EDT 40 mg Given 02/08/2014 10:57 AM EDT 40 mg Given 02/08/2014 9:59 AM EDT 250 mg propofol (DIPRIVAN) infusion CONTINUOUS PRN, Starting on Sat02/08/14 at 1225, Until Sat02/08/14 at 1523, Anesthesia Intra-op, Routine Rate/Dose Change 02/08/2014 1:30 PM EDT 20 mcg/kg/min 12.5 mL/hr New Bag 02/08/2014 12:25 PM EDT 30 mcg/kg/min 18.8 mL/h r rocuronium (ZEMURON) injection PRN, Starting on Sat02/08/14 at 1000, Until Sat02/08/14 at 1523, Anesthesia Intra-op, Routine Given 02/08/2014 2:34 PM EDT 10 mg Given 02/08/2014 1:55 PM EDT 10 mg Given 02/08/2014 1:30 PM EDT 10 mg documented in this encounter Care Teams Vinyl Top Installer Relationship Specialty Start Date End Date Manolo Castro MD [address] [place] [address] PCP - General 05/14/12 04/21/17 documented as of this encounter
--- OUTSIDE RECORDS SUMMARY | 2024-04-27 14:56 | XMS_ITS | Encounter Summary ---
Author Organization [facility] Address [facility] [place] [address] Care Team Providers Care Supermarket Manager Name Role Phone Manolo Castro MD Primary Care Provider [phone] Encounter Details Date Type Department Care Team (Latest Contact Info) Description 11/18/2013 8:11 AM EST - 11/18/2013 11:59 PM [facility] Hospital Encounter XRay at [address] [place] [address] CLINIC, Wally Che MD [facility] [place] [address] Morbid obesity; Status post Ronnell fundoplication (without gastrostomy tube) procedure Discharge Disposition: Home Social History Tobacco Use [...] 04/24/2010 02/12/2014 documented as of this encounter Miscellaneous Notes * Miscellaneous - Provider, Scanning - 11/26/2013 4:16 AM EST documented in this encounter Plan of Treatment Upcoming Encounters Date Type Department Care Team (Late st Contact Info) Description 05/15/2024 10:00 AM EDT [place] [address] Catrachito Mehta MD [facility] [place] [address] documented as of this encounter Procedures Procedure Name Priority Date/Time Associated Diagnosis Comments XR FLUORO BARIUM SWALLOW (SINGLE CONTRAST) Routine 11/18/2013 9:07 AM EST Morbid obesity Status post Ronnell fundoplication (without gastrostomy tube) procedure documented in this encounter Results * XR Fluoro Barium swallow (11/18/2013 9:07 AM EST) Anatomical Region Laterality Modality N/A Radiographic Sia ging 11/18/2013 9:07 AM EST Narrative 11/18/2013 9:25 AM EST Examination BARIUM SWALLOW Clinical History preop bariatric surgery, s/p paraesophagal hernia repair and Ronnell in 2001. Check integrity of wrap and evaluate for reflux Comparison None. Technique A single contrast barium swallow was performed. ??The patient drank barium and fluoroscopic spot views were obtained in both the upright and recumbent positions. Findings The esophagus is normal in caliber and shows normal peristalsis. ??There is no evidence of esophageal stricture, mass or mucosal thickening. The Ronnell fundoplication is intact. The caliber of the distal esophagus tapers through the Ronnell wrap but there is a small paraesophageal hiatal hernia and a moderate amount of gastroesophageal reflux is noted up into the mid esophagus. The stomach is normal and there is no evidence of gastric outlet obstruction. ?? Impression Small recurrent paraesophageal hernia. ??The Ronnell wrap is intact but there is a moderate amount of gastroesophageal reflux. Procedure Note Luther Price MD - 11/18/2013 Examination BARIUM SWALLOW Clinical History preop bariatric surgery, s/p paraesophagal hernia repair and Ronnell [id number]. Check integrity of wrap and evaluate for reflux Comparison None. Technique A single contrast barium swallow was performed. The patient drank bariumand fluoroscopic spot views were obtained in both the upright and recumbent positions. Findings The esophagus is normal in caliber and shows normal peristalsis. There isno evidence of esophageal stricture, mass or mucosal thickening. The Ronnell fundoplication is intact. The caliber of the distal esophagus tapersthrough the Ronnell wrap but there is a small paraesophageal hiatal hernia and a moderate amount of gastroesophagealreflux is noted up into the mid esophagus. The stomach is normal and there is no evidence of gastric outlet obstruction. Impression Small recurrent paraesophageal hernia. The Ronnell wrap is intact butthere is a moderate amount of gastroesophageal reflux. Wally Pfeiffer MD IMG FLUORO ORDERABL ES documented in this encounter Visit Diagnoses Diagnosis Morbid obesity Status post Ronnell fundoplication (without gastrostomy tube) procedure Follow-up examination, following unspecified surgery documented in this encounter Administered Medications Inactive Administered Medications - up to 3 most recent administrations Medication Order MAR Action Action Date Dose Rate Site barium sulfate (EZPAQUE) oral suspension 355 mL 355 mL, Oral, ONCE PRN, 1 dose, Starting on Sat11/18/13 at 0904, Until Sat11/18/13 at 0906, Per Protocol, Routine Given 11/18/2013 9:06 AM EST 355 mLs barium sulfate (POLIBAR PLUS) oral suspension 130 mL 130 mL, Oral, ONCE PRN, 1 dose, Starting on Sat11/18/13 at 0905, Until Sat11/18/13 at 0906, Per Protocol, Routine Given 11/18/2013 9:06 AM EST 130 mLs documented in this encounter Care Teams Supermarket Manager Relationship Specialty Start Date End Date Manolo Castro MD [address] [place] [address] PCP - General 05/14/12 04/21/17 documented as of this encounter
--- OUTSIDE RECORDS SUMMARY | 2024-04-27 14:56 | XMS_ITS | Encounter Summary ---
Author Organization Formerly [facility] Address [facility] [place] [address] Care Team Providers Care Header Operator Name Role Phone Manolo Castro MD Primary Care Provider [phone] Encounter Details Date Type Department Care Team (Late st Contact Info) Description 07/10/2013 9:28 AM EDT - 07/10/2013 11:59 PM EDT Hospital Encounter XRay at [address] [place] [address] Left hip pain Social History Tobacco Use Types Packs/Day Years [...] Date lovastatin (MEVACOR) 20 mg tablet 04/24/2010 celecoxib (CELEBREX) 200 mg capsule Take 2 capsules by mouth daily. Patient is on coumadin and cannot take other NSAIDs 60 capsule 0 07/10/2013 11/03/2013 metFORMIN (GLUCOPHAGE) 500 mg tablet Take 1,000 mg by mouth 2 times daily (with meals). 03/25/2019 venlafaxine (EFFEXOR-XR) 75 mg 24 hr capsule Take 75 mg by mouth daily. 02/12/2014 ramipril (ALTACE) 10 mg capsule 04/24/2010 11/18/2013 warfarin (COUMADIN) 5 mg tablet 04/24/2010 02/12/2014 terazosin (HYTRIN) 2 mg capsule 04/24/2010 11/18/2013 DILTiazem (CARDIZEM CD) 240 mg 24 hr capsule 04/24/2010 11/18/2013 documented as of this encounter Plan of Treatment Upcoming Encounters Date Type Department Care Team (Late st Contact Info) Description 05/15/2024 10:00 AM EDT [place] [address] Catrachito Mehta MD [facility] [place] [address] documented as of this encounter Procedures Procedure Name Priority Date/Time Associated Diagnosis Comments XR PELVIS AP AND HIP 2 VIEWS OF 1 HIP Routine 07/10/2013 9:45 AM EDT Left hip pain documented in this encounter Results * XR pelvis AP [...] this encounter Visit Diagnoses Diagnosis Left hip pain Pain in joint, pelvic region and thigh documented in this encounter Care Teams Header Operator Relationship Specialty Start Date End Date Manolo Castro MD [address] [place] [address] PCP - General 05/14/12 04/21/17 documented as of this encounter
--- OUTSIDE RECORDS SUMMARY | 2024-04-27 14:56 | XMS_ITS | Encounter Summary ---
Author Organization [facility] Address [facility] [place] [address] Care Team Providers Care Front Desk Associate Name Role Phone Manolo Castro MD Primary Care Provider [phone] Encounter Details Date Type Department Care Team (Late st Contact Info) Description 12/25/2013 9:30 AM EDT - 12/25/2013 10:00 AM EDT [place] [address] Wally Pfeiffer MD [facility] [place] [address] EGD, UPPER GI ENDOSCOPY (WRVU 2.09) Social History Tobacco Use Types Packs/Day Years [...] Sign Reading Time Taken Comments Blood Pressure 116/54 12/25/2013 10:02 AM EDT Pulse 79 12/25/2013 10:02 AM EDT Temperature 37 ??C (98.6 ??F) 12/25/2013 8:59 AM EDT Respiratory Rate 16 12/25/2013 10:02 AM EDT Oxygen Saturation 96% 12/25/2013 10:02 AM EDT Inhaled Oxygen Concentration - - Weight - - Height - - Body Mass Index - - documented in this encounter Discharge Instructions * Discharge Instructions* Darlene Lowe RN - 12/25/2013 10:03 AM EDT You may have received medications before and/or [...] occurs, please contact your MD/ Please call [phone] before 5pm with problems, questions or concerns. After 5pm call [phone] and ask to speak with the event crew technician director of compensation. Discharge instructions reviewed with patient who expresses understanding. * Attachments The following attachments cannot be sent through Care Everywhere. * EGD (UPPER ENDOSCOPY) : POST-OP (CENTRAL AFRICAN) documented in this encounter Medications at Time [...] as of this encounter H&P Notes * Wally Pfeiffer MD - 12/25/2013 9:33 AM EDT Patient Name: Eugene Rueda Patient Age: 63 y.o. Birthdate: 1950 Admit date: 12/25/2013 Attending Physician: Wally Pfeiffer MD Eugene Rueda is a 62-year-old gentleman who presents referred for possible bariatric surgery. He is a gentleman that has currently had full participation in [place] [facility] [place] and meets NIH criteria [...] majority of our 40 minutes today in [id number] conversation regarding various treatment options for obesity [...] Notes * Miscellaneous - Provider, Scanning - 12/25/2013 9:49 PM EDT * Miscellaneous - Provider, Scanning - 12/25/2013 9:47 PM EDT * Miscellaneous - Provider, Scanning - 12/25/2013 3:04 PM EDT documented in this encounter Plan of Treatment Upcoming Encounters Date Type Department Care Team (Late st Contact Info) Description 05/15/2024 10:00 AM EDT [place] [address] Catrachito Mehta MD [facility] [place] [address] documented as of this encounter Procedures Procedure Name Priority Date/Time Associated Diagnosis Comments EGD, UPPER GI ENDOSCOPY (WRVU 2.09) 12/25/2013 9:38 AM EDT post Ronnell question of delayed gastric emptying. UPPER GI ENDOSCOPY Routine 12/25/2013 9: 36 AM EDT documented in this encounter Results * UPPER GI ENDOSCOPY (12/25/2013 9:36 AM EDT) UPPER GI ENDOSCOPY [facility] Endoscopy ___ Patient Name: Eugene Rueda ? Procedure Date: 12/25/2013 9:36 AM ? Date of : 1950 ? Age: 63 ? Order #: [id number] ? ___ Procedure: ? Upper GI endoscopy Indications: ? Preoperative assessment for bariatric ? surgery, Assessment following Ronnell ? fundoplication Providers: ? Wally Pfeiffer MD, Flavia Schneider ? FRACISCO Bueno, Julienne Pabon, ? Debone Processing Supervisor Referring : ?Manolo Castro MD Medicines: ? Sedation Required Anesthesia Staff ? Assistance Complications: ? No immediate complications. ___ Procedure: ? Pre-Anesthesia Assessment: ? - Prior [...] proposed procedure were verified by ? the physician, the nurse and the ? anesthesiologist in the endoscopy ? suite. Mental Status Examination: ? alert and oriented. Airway ? Examination: normal oropharyngeal ? airway and neck mobility. Respiratory ? Examination: clear to auscultation. ? CV Examination: normal. Prophylactic ? Antibiotics: The patient does not ? require prophylactic antibiotics. ? Prior Anticoagulants: The patient has ? taken Coumadin (warfarin), last dose ? was 1 day prior to procedure. ASA ? Grade Assessment: III - A patient ? with severe systemic disease. After ? reviewing the risks and benefits, the ? patient was deemed in satisfactory ? condition to undergo the procedure. ? The anesthesia plan was to use ? monitored anesthesia care (MAC). ? Immediately prior to administration ? of [...] well. The ? upper GI endoscopy was accomplished ? without difficulty. The patient ? tolerated the procedure well. ? Findings: ? LA Grade A (one or more mucosal breaks less than 5 ? mm, not extending between tops of 2 mucosal folds) ? esophagitis with no bleeding was found. ? Evidence of a Ronnell fundoplication was found in the ? gastric fundus. The anastomosis was characterized by ? healthy appearing mucosa. ? The examined duodenum was normal. ? A medium amount of food (residue) was found in the ? gastric fundus. ? Impression: ?- LA Grade A reflux esophagitis. ? - A Ronnell fundoplication was found, ? anastomosis characterized by healthy ? appearing mucosa. ? - Normal examined duodenum. Recommendation: ?- Return to Bariatric clinic as ? previously scheduled. ? Procedure Code(s): ?? --- Professional --- ? 38520, Upper gastrointestinal ? endoscopy including esophagus, ? stomach, and either the duodenum ? and/or jejunum as appropriate; ? diagnostic, with or without ? collection of specimen(s) by brushing ? or washing (separate procedure) Diagnosis Code(s): ?? --- Professional --- ? 530.11, Reflux esophagitis ? V67.09, Follow-up examination, ? following other surgery ? V72.83, Other specified pre-operative ? examination ? --- Technical --- ? 530.11, Reflux esophagitis ? V67.09, Follow-up examination, ? following other surgery ? V72.83, Other specified pre-operative ? examination CPT (R) 2012 [employer]. All Rights Reserved. The codes documented in this report are preliminary and upon feed blender review may be revised to meet current compliance requirements. __ Wally Pfeiffer MD 12/25/2013 10:02 AM This report has been signed electronically. Number of Addenda: 0 Note Initiated On: 12/25/2013 9:36 AM PROVATION 12/25/2013 9:36 AM EDT Manolo Castro MD GENERAL SURGICAL ORD ERABLES PROVATION documented in this encounter Visit Diagnoses Not on filedocumented in this encounter Active and Recently Administered Medications Times are shown in EDT. Continuous Medication Order 12/23/2013 12/24/2013 12/25/2013 lactated ringers infusion (CANCELED) 100 mL/hr, Intravenous, CONTINUOUS, Starting on Sat12/25/13 at 0915, Until Sat12/25/13 at 1058, Endoscopy (Intra-Procedure) 0936 (New Bag - Prov ider: Yousuf Watson) documented in this encounter Care Teams Front Desk Associate Relationship Specialty Start Date End Date Manolo Castro MD [address] [place] [address] PCP - General 05/14/12 04/21/17 documented as of this encounter
--- OUTSIDE RECORDS SUMMARY | 2024-04-27 14:56 | XMS_ITS | Encounter Summary ---
Author Organization [facility] Address [facility] [place] [address] Care Team Providers Care Coremaker Experimental Name Role Phone Manolo Castro MD Primary Care Provider [phone] Encounter Details Date Type Department Care Team (Late Contact Info) Description 02/02/2014 Orders [place] [address] Milka Barrios, RN Social History Tobacco Use [...] 10:00 AM EDT [place] [address] Catrachito Mehta MD [facility] [place] [address] documented as of this encounter Visit Diagnoses Not on filedocumented in this encounter Care Teams Coremaker Experimental Relationship Specialty Start Date End Date Manolo Castro MD [address] [place] [address] PCP - General 05/14/12 04/21/17 documented as of this encounter
--- OUTSIDE RECORDS SUMMARY | 2024-04-27 14:56 | XMS_ITS | Encounter Summary ---
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 . SUBJECTIVE: Mr. Rueda and I are well acquainted. 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 A very active gentleman. He reports back for his usual followup visit concerning his total knees. He really has no problem with them except descending stairs. The left leg feels a little weaker. He denies any specific pain with it, but it was our main observation that he tends to always use his right leg more on the paddle and is probably stronger only because of that. It makes good sense. He has had no accidents or injuries andhad no infections since last seen. He uses no assistive device to get around. He takes no medications specifically for his knees. He did have some dosage changes on his medication. His diabetes is under good control. He has no peripheral neuropathy from his diabetes. OBSERVED: Mr. Rueda reports back to clinic today, I do not have a weight and height on him. We had a little issue this morning, but we were unable to get that, but his weight is stable according to him. His position changes are brisk. His gait is a little bit lumbering, but otherwise smooth. He has no heat, erythema, or effusion in either knee. His knee exam today are comfortable. He has no peripheral edema. He does have <___> the bilateral calves. In testing his strength, he is slightly weaker on the left hip flexor test, but the knee extension tests were equal. The rest of the note is dictated. Knee Exam: Left Prior surgery on this joint: Yes Gait Abnormality: Normal Knee ROM: Extension:0 Flexion: 105 Alignment: 0-4 degrees Neutral Stability: A/P Translation <5mm Varus (lateral stability) <5mm Valgus (medial stability) <5mm Extension La degrees or less Radiographic evidence of joint damage: [0= normal; 1=minimal ; 2= some osteophytes , some narrowing ; 3= moderate osteophytes, significantnarrowing, mild deformity; 4= large osteophytes, marked narrowing, obvious deformity]: bilateral total knee implants stable Patella Tracking: Normal Skin Integrity: Normal Pulses Palpable: Left PT:Yes Left DP:Yes Motor/Sensory: Left Distal Motor:Normal Distal Sensory: Normal Quadriceps Strength:5 I have made the following determinations: Post Op Right Knee Exam: Gait Abnormality: Normal Knee ROM: Extension:0 Flexion: 115 Alignment: 0-4 degrees Neutral Stability: A/P Translation <5mm. Varus (lateral stability)<5mm Valgus (medial stability) <5mm Extension La degrees or less Patella Tracking: Normal Pulses Palpable: Right PT: Yes Right DP:Yes Motor/Sensory: Distal Motor: Normal Distal Sensory: Normal Quadriceps Strength: 5 X-rays: Films today reveal intact Bilateral knee prostheses with nothing to suggest malposition, loosening or infection. Bone stock is of good quality. Assessment: Very satisfactory 9 year post-op visit concerning Mr. Rueda's knee implants. Plan: Total joint precautions were reviewed in some detail including the avoidance of those positions or activities that might affect the implant negatively such as jumping from a heighth and landingwith a crash, hyperflexion of the knees, distance running on hard pavement, water skiing, pogo sticking or use of a trampoline. The patient will always pre-treat with a prophylactic antibiotic prior to any dental cleanings. They will report to the dentist immediately if they have a dental infection or any skin infections to their PCP so as to avoid any chance of hematologic spread of bacteria to their implant(s). The patient was encouraged to stay as active as they are able to depending on their other medical co-morbidities. They realize that the total joint will function better if the musculature around it is strong. We will have him return to clinic in 2 years with new x-rays or sooner if anything new or concerning should arise. He has contact information to reach us prn. He will work on his left quad strength with leg lifts each day as time allow to help him feel more secure decending stairs. documented in this encounter Plan of Treatment Upcoming Encounters Date Type Department Care Team (Late st Contact Info) Description 05/15/2024 10:00 AM EDT Office [place] [address] Catrachito Mehta MD [facility] [place] [address] documented as of this encounter Visit Diagnoses Diagnosis Knee joint replacement by other means- Primary documented in this encounter Care Teams Service Department Manager Relationship Specialty Start Date End Date Manolo Castro MD [address] [address] PCP - General 05/14/12 04/21/17 documented as of this encounter
--- OUTSIDE RECORDS SUMMARY | 2024-04-27 14:56 | XMS_ITS | Encounter Summary ---
Author Organization [facility] Address [place] [address] Care Team Providers Care Spinner Iron Name Role Phone Manolo Castro MD Primary Care Provider [phone] Encounter Details Date Type Department Care Team (Latest Contact Info) Description 12/25/2013 7:43 AM EDT - 12/25/2013 1:38 PM EDT Hospital [place] [address] Wally Pfeiffer MD [facility] [place] [address] Discharge Disposition: Home Social History Tobacco Use [...] occurs, please contact your MD/ Please call [phone] before 5pm with problems, questions or concerns. After 5pm call [phone] and ask to speak with the biology adjunct instructor security consultant. Discharge instructions reviewed with patient who expresses understanding. * Attachments The following attachments cannot be sent through Care Everywhere. * EGD (UPPER ENDOSCOPY) : POST-OP (FAROESE) documented in this encounter Medications at Time [...] has currently had full participation in the [facility] Bariatric Surgery Program and meets [...] majority of our 40 minutes today in [id number] conversation regarding various treatment options for obesity [...] 10:00 AM EDT [place] [address] Catrachito Mehta MD [facility] [place] [address] documented as of this encounter Procedures Procedure Name Priority Date/Time Associated Diagnosis Comments EGD, UPPER GI ENDOSCOPY (WRVU 2.09) 12/25/2013 9:38 AM EDT post Ronnell question of delayed gastric emptying. UPPER GI ENDOSCOPY Routine 12/25/2013 9: 36 AM EDT documented in this encounter Results * UPPER GI ENDOSCOPY (12/25/2013 9:36 AM EDT) UPPER GI ENDOSCOPY [facility] Endoscopy ___ Patient Name: Eugene Rueda ? Procedure Date: 12/25/2013 9:36 AM ? Date of : 1950 ? Age: 63 ? Order #: [id number] ? ___ Procedure: ? Upper GI endoscopy Indications: ? Preoperative assessment for bariatric ? surgery, Assessment following Ronnell ? fundoplication Providers: ? Wally Pfeiffer MD, Flavia Schneider ? FRACISCO Bueno, Julienne Pabon, ? Clerical Methods Analyst Referring : ?Manolo Castro MD Medicines: ? [...] Procedure Code(s): ?? --- Professional --- ? 34910, Upper gastrointestinal ? endoscopy including esophagus, ? [...] Other specified pre-operative ? examination CPT (R) 2011 [employer]. All Rights Reserved. The codes documented in this report are preliminary and upon auditing coder review may be revised to meet current [...] Watson) documented in this encounter Care Teams Spinner Iron Relationship Specialty Start Date End Date Manolo Castro MD [address] [place] [address] PCP - General 05/14/12 04/21/17 documented as of this encounter
--- OUTSIDE RECORDS SUMMARY | 2024-04-27 14:56 | XMS_ITS | Encounter Summary ---
Author Organization [facility] [place] [address] Care Team Providers Care Elevated Guard Name Role Phone Manolo Castro MD Primary Care Provider [phone] Encounter Details Date Type Department Care Team (Late Contact Info) Description 07/08/2013 [place] [address] Momo Blount MD [facility] [place] [address] H/O total knee replacement (Primary Dx) Social History Tobacco [...] 10:00 AM EDT [place] [address] Catrachito Mehta MD [facility] [place] [address] documented as of this encounter Visit Diagnoses Diagnosis H/O total knee replacement- Primary Knee joint replacement by other means documented in this encounter Care Teams Elevated Guard Relationship Specialty Start Date End Date Manolo Castro MD [address] [place] [address] PCP - General 05/14/12 04/21/17 documented as of this encounter
--- OUTSIDE RECORDS SUMMARY | 2024-04-27 14:56 | XMS_ITS | Encounter Summary ---
Author Organization [facility] [place] [address] Care Team Providers Care Detective Homicide Squad Name Role Phone Manolo Castro MD Primary Care Provider [phone] Reason for Visit * Reason Comments Other Encounter Details Date Type Department Care Team ([facility] Contact Info) Description 11/20/2013 Telephone Cardiology at [address] [address] Luis M Fong MD [facility] [place] [address] Social History Tobacco Use Types Packs/Day Years [...] encounter Miscellaneous Notes * Telephone Encounter - Luis M Fong MD - 11/20/2013 1:52 PM EST We reviewed his echocardiogram today with normal LV function. Agree with plan for bariactric surgery per his wishes to proceed. documented in this encounter Plan of Treatment Upcoming Encounters Date Type Department Care Team ([facility] Contact Info) Description 05/15/2024 10:00 AM EDT [place] [address] Catrachito Mehta MD [facility] [place] [place] [address] documented as of this encounter Visit Diagnoses Not on filedocumented in this encounter Care Teams Detective Homicide Squad Relationship Specialty Start Date End Date Manolo Castro MD [address] [place] [address] PCP - General 05/14/12 04/21/17 documented as of this encounter
--- OUTSIDE RECORDS SUMMARY | 2024-04-27 14:56 | XMS_ITS | Encounter Summary ---
Author Organization [facility] Address [facility] [place] [address] Care Team Providers Care Home Care Consultant Name Role Phone Manolo Castro MD Primary Care Provider [phone] Reason for Referral * Consultation (Routine) - Closed Specialty Diagnoses / Procedures Referred By Contac t Referred To Contact Hematology and Oncology Diagnoses Morbid obesity Venous stasis Chronic anticoagulation Narda Allen [facility] [place] [address] Darlene Barrientos MD [facility] HEMATOLOGY/[place] [address] Referral ID Status Reason Start Date Expiration Date V isits Requested Visits Authorized [id number] Closed Assume Subset of Care 11/08/2013 05/07/2014 1 1 * Consultation (Routine) - Closed Specialty Diagnoses / Procedures Referred By Contac t Referred To Contact Cardiology Diagnoses Morbid obesity Hypertension Type 2 diabetes mellitus Obstructive sleep apnea (adult) (pediatric) Hyperlipidemia Chronic anticoagulation Narda Allen [facility] [place] [address] [facility] Card[facility] [address] [place] [phone] Referral ID Status Reason Start Date Expiration Date V isits Requested Visits Authorized [id number] Closed Assume Subset of Care 11/08/2013 05/07/2014 1 1 Reason for Visit * Reason Comments Morbid Obesity Bariatric Surgery Pr lexi preoperative visit #1 Encounter Details Date Type Department Care Team (Latest Contact Info) Description 11/03/2013 9:00 AM EST Office Visit [place] [address] Narda Allen, MIGUEL [facility] [place] [address] Morbid obesity; Hypertension; Type 2 diabetes mellitus; Obstructive sleep apnea (adult) (pediatric); Hyperlipidemia; Venous stasis; Vitamin D deficiency; Screening for iron deficiency anemia; Status post Afsaneh fundoplication (without gastrostomy tube) procedure; Elevated TSH; Chronic anticoagulation Discharge Disposition: Home Social History [...] Sign Reading Time Taken Comments Blood Pressure 139/81 11/03/2013 7:44 AM EST Pulse 87 11/03/2013 7:44 AM EST Temperature - - Respiratory Rate 18 11/03/2013 7:44 AM EST Oxygen Saturation 98% 11/03/2013 7:44 AM EST Inhaled Oxygen Concentration - - Weight 116.8 kg (257 lb 8 oz) 11/03/2013 7:44 AM EST Height 175 cm (5' 8.9) 11/03/2013 7:44 AM EST Body Mass Index 38.14 11/03/2013 7:44 AM EST documented in this encounter Patient Instructions * Patient Instructions* Rowan Deutsch, RD - 11/02/2013 10:18 AM EST BARIATRIC SURGERY PROGRAM FIRST VISIT Contact information: [facility] Admin coordinator Tracy: [phone] Dietitian: [phone] Surgeons/ nurse practitioner: [phone] Nurse line: [phone] Recommendations to do list after today's visit: Medications: ?? Start the following medications: Pending lab results Evaluations/ testing: ?? The following evaluations are needed: 1. ? Upper endoscopy and barium swallow- will discuss with Dr. Pfeiffer 2. labwork 3. Cardiology evaluation to coordinate with next visits Pending information: copy of operative report hernia repair. Bariatric Surgery Program educational information: Read the Bariatric Surgery Program Educational Handbook thoroughly, highlight important areas to remember. Write down any questions that you may have to discuss at next visit. Bring the Handbook to ALL pre-operative visits, including the surgeon visit. Keep the handbook in asafe place for easy retrieval. Your next visits: All visits take place in the General Surgery Clinic, [facility] 4L 2nd visits with dietitian and nurse practitioner ([facility]- Shared Medical Appointment) Surgical consultation Pre-op class: to be determined at a later date Bring the questionnaire to your next visit. Complete within 1 day of the visit. Nutrition: 1) Practice post-op GB diet recommendations prior to surgery to support post-op success and long-term weight loss: Eat 3 meals daily, spaced about 4-6 hours apart. Take your time when eating meals, at least 20-30 minutes per meal. Avoid soda and limit caffeine consumption. Sip 48-64 oz hydrating fluid daily between meals and avoid drinking with meals. Use smaller plates/bowls/utensils for meals and eat smaller portions. Plan meals 1 wk in advance and shop with a list. 2) Start taking a complete multivitamin daily. Make sure it is an under 50 multivitamin with minerals (such as One a Day or Centrum, or generic equivalent). 3) Exercise with the eventual goal of 30 minutes minimum 5 days per week or exercise as recommendedby MD. 4) Practice this Meal Format: Work on increasing veggies. Protein first at all meals! Only eat until full. Breakfast 1st Protein (15-20 grams) 2nd Fruit (1 piece or ?? cup) 3rd Starch (1 serving) Lunch and Dinner 1st Protein (20 grams) 2nd Non-Starchy Vegetables (no limit, no fat) 3rd Starch (1 serving) 4th Fruit (1 piece or ?? cup) 1 serving of starch = 1 slice toast, ?? Puerto Rican muffin, ?? cup cooked potato, rice, or pasta, 1 small vianey or wrap Non starchy vegetables include all those except corn, peas, winter squash, beans, and potatoes Snacks: 1-2 per day if physically hungry - choose a protein or a fruit Surgery date: For patients who have insurers who have a long approval process, your surgery date and pre-operative class will be scheduled after you are approved by your insurer. We cannot predict your OR date in advance of approval. Only the OR technical associate can provide you with a date. Questions for your doctor, specialist or pharmacist: Ask your doctor about medication suggestions if you currently take medications that are larger than the size of a tylenol. Large pills need to be crushed (if permitted by the drug circuit breaker assembler) or taken in liquid form for TWO WEEKS after surgery. Diabetic oral medication often does not need to betaken after surgery) ?? If you take antinflammatory medications or steroid medications for arthritis or asthma, please check with your doctor. These medications will likely need to be held 1 week prior to and at least a few weeks after surgery. documented in this encounter Progress Notes * Narda Allen - 11/02/2013 7:26 PM EST Reason for consultation: Eugene is a 62 y.o. year-old male referred by MANOLO CASTRO MD for consultation for consideration of surgical treatment of obesity. His preferred procedure: sleeve gastrectomy BARIATRIC SURGERY PROGRAM PATHWAY Review of progress with the requirements of the Bariatric Surgery Program: 1. Education: He has attended a Introduction to the [facility] Bariatric Surgery Program seminar, a comprehensive two hour meeting that provides a program overview, education on bariatric surgeries offered at [facility], risks and benefits, as well as patient expectations and follow up, in July 2013. [facility] Bariatric Surgery Program Educational seminars viewed: 3, in September 2013. Grades on post-testin-90%. The BSP Educational Handbook is provided at visit #1. 2. Pre-operative programmatic evaluations: PCP evaluation and letter of support to proceed with surgery, BSP labwork and psychological evaluation 3. Bariatric Surgery Program evaluations with RD and PELT INSPECTOR: today. 4. Weight history: 195 pounds on 07/09/2002, 218 pounds on 09/06/05, 246 pounds on 09/06/08, 246 pounds on 08/14/10, 257 pounds on 08/19/13, 255 pounds on 07/10/13. Current weight: 257 pounds HT 68.8 in 5. Gallbladder status: Believed to be intact, per patient, although notes from PCP indicate prior cholecystectomy 6. Insurer specific requirements: Medicare part A, [place] and [place]- 3 months of supervised counseling 7. BSP Team meeting discussion: Indication: age >60 8. Next steps in pathway: ?? Additional testing/ consultations as determined as needed to be determined at today's visit. ?? If all [facility] requirements and testing have been completed: surgical consultation. ?? Following surgical consultation, if approved to proceed to surgery by the surgeon and insurer: an operating room date and pre-operative class will be scheduled. History of present illness: Eugene reports a history of obesity since the age 44. Factors that he identifies as contributing to his obesity include: overconsumption and inactivity. He denies binge eating, night eating disorder, self-induced vomiting, laxative or diuretic use or excessive exercise to lose weight. Conservative efforts at weight loss have been unsuccessful in the assisted. Refer to nutrition note by [facility] dietitian for weight and dieting history, 24 hour dietary intake and recent dietary changes. Motivating factors for seeking surgery for bariatric surgery: see RD note Patient research in addition to attendance at [facility] Bariatric Surgery Informational meeting and online Educational seminars: see RD note His goals of surgery: improve health Patient's goal weight: 170-175 pounds (realistic by 1 year post-operatively was anticipated if the appropriate post surgery diet and activity recommendations are followed) Functional status: Exercise: As per RD note Is ambulation limited most or all of the time? no Tolerance: he can walk a mile and climb a flight of stairs Karnofsky performance status scale: 80- normal activity with effort ADLs: able to carry on without difficulty- independent Use of assistive devices: none Dyspnea with routine activity: denies Problem List ??? Preoperative Class II obesity [...] GERD, S/P repair of paraesophageal hernia and Afsaneh fundoplication ??? Obstructive sleep apnea A. PSG done [...] Atrial fibrillation treated with Diltiazem and Coumadin ??? Chronic anticoagulation ??? Peripheral vascular disease ??? Musculoskeletal issues: stable, rare Ibuprofen use A. Back pain ??? Varicose veins both legs, no DVT history ??? Depression ??? Fatigue ??? Hypogonadism ??? Elevated TSH and decreased T4 ??? Decreased hearing right ear, wears hearing aid ??? Tattoo ??? Diverticulosis ??? Hemorrhoids ??? Asbestosis, asymptomatic ??? History of remote renal stone in 1980s Past Surgical History Procedure Date ??? Laparoscopic paraesophageal hernia repair and Afsaneh fundoplication 07/16/2002 ??? Laparoscopic umbilical hernia repair with Bard [address] ST circular mesh (11.4 cm in diameter) at [facility] 10/15/2012 ??? Vasectomy ??? Right carpal tunnel release ~2007 ??? Septoplasty, Bilateral inferior turbinoplasty, Uvulopalatopharyngoplasty 08/25/1999 ??? Tonsillectomy ~1955 ??? Bilateral total knee arthroplasty 12/16/2002 Anesthesia history (per patient): denies untoward events- other than developed open sores on right hand after right carpal tunnel repair Lactose/ Food/ Wheat/ Latex allergy/sensitivity: denies Diagnostic screenin. Lab data Results for EUGENE PURVIS ( ) as of 11/08/2013 15:33 Ref. Range 11/03/2013 10:21 WBC Latest Range: [...] Vitamin A Latest Range: 32.5-78.0 mcg/dL 49.8 TSH Latest Range: 0.27-4.20 mcIU/mL 4.30 (H) PTH Latest Range: 15-65 pg/mL 40 Results for EUGENE PURVIS ( ) add ons: Ref. Range 11/03/2013 10:21 Free T4 Latest Range: 0.90-1.60 ng/dL 0.72 (L) T Uptake Latest Range: 0.80-1.30 ratio 1.16 Date WBC Hg/ Hct Plt Iron screen Lytes/CO2 BUN/Cr/GFR Ca Fast glu Insulin HA1C TSH 07/27/13 6.5 Date Vit A B12 25 D PTH folate T chol HDL LDL Trig Uric acid LFTs 07/27/13 158 31 108 126 2. Psychological evaluation done by Michael Hayes [facility] following sessions on 07/30 and 09/07/13:no contraindication to bariatric surgery from a psychological perspective. Screening: Date Evaluation Results 2013 Primary care 04/04/12 Colonoscopy polyps in descending and sigmoid colon, glasgow diverticulosis, grade II hemorrhoids - DEXA Family History: Father: in his 60s of heart failure, normal weight, alcohol issues, estranged from patient Mother: at 50 of gastric cancer, obese Brother(s): 3- oldest brother with recent surgery for colon cancer, age 77, other 2 estranged, all normal weight Sister(s): 2- oldest mastectomy recently age 74, other sister healthy, normal Familial diseases/disorders: Additional family history: [x] All others negative Obesity: Diabetes: Thyroid disease: Premature heart disease: Breast or colon cancer: maternal aunt of breast cancer Bleeding/ clotting disorders: Anesthesia complications: Renal calculi: Social History/ Health-related habits : Residence/ marital status:Eugene is , lives in [place], [place]. His youngest son, who is disabled, lives with him. He has 2 other adult sons and one grandson named Chandana who lives in [place]. Plans for post-operative support: son Support persons viewed information on bariatric surgery: no Education/ Occupation: [employer] school, and some college. 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 Hobbies/Activities: swimming at [employer] over the winter months, fishing, going to beach Alcohol: maybe 1 beer a year He denies history of alcohol abuse. Tobacco: never Recreational drugs/Injection/Inhalant: denies recent or current use Screening for IPV in the past year: negative Osteoporosis risk factors: negative if blank []Advancing age [+]Previous fracture right heel in []Glucocorticoid therapy []Parental history of hip fracture []Current cigarette smoking []Excessive alcohol consumption []Rheumatoid arthritis []Secondary osteoporosis (eg, hypogonadism or premature menopause, malabsorption, chronic liver disease, inflammatory bowel disease) Dental visits: regular Living will/DPOA: plans to do Review of Systems (negative if left blank): Constitutional: [] fatigue EENT [+] wears corrective lens for reading, night vision [+] hearing aide right ear Neurologic: [] paresthesias [] dizziness [] chronic headaches Cardiovascular: [] history of chest pain, squeezing, pressure [] history of NV, previous PCI/ PTCA, cardiac surgery [] VTE, syncope, murmur [-] palpitations- AF asymptomatic Respiratory: [] shortness of breath [] wheezing [] COPD [+] sleep apnea GI: [-] GERD, S/P afsaneh and paraesophageal hernia repair [] dysphagia [] abdominal pain, hernia []nausea/vomiting [+] unable to vomit since Afsaneh [] blood in stool [] chronic diarrhea/ constipation [] previous obesity surgery : [] incontinence [] hematuria [+] history of renal calculi right ~ Musculoskeletal [] myalgia/arthralgias: Extremities: [+] Varicose veins both legs [] edema Skin: [] skinfold rashes Endocrine: [+] DM [] thyroid disease Heme/Lymph: [] excessive bruising [] lymphadenopathy [] transfusion [] blood donor in past year [] iron deficiency history Allergic/ Immun: [] use of steroid/ immunosuppressant for chronic condition [] Latex, food or medication allergies: as per allergy list Psychiatric [+] mild depression, improved with effexor [] anxiety [ ] history of suicide attempt [] symptoms of bipolar disorder [] addictions- gambling, excessive shopping, internet [] History of abuse [] psychiatric hospitalizations Other: [] smoker within 1 year of surgery [] current smoker [+] anticoagulation Bariatric Surgery VTE Risk Assessment Score Patients will be considered to be at high risk if they have one or more of the following: Previous VTE or BMI >/= 60 kg/m2 Or two or more of the followin 1 1 1 Age > 50 BMI >/= 50 kg/m2 Male sex Smoker within 1 year of surgery Obstructive sleep apnea Venous insufficiency/ varicose veins OCP or HRT within 30 days of surgery Total: 4 extended VTE prophylaxis is indicated post bariatric surgery discharge Patients are advised to stop HRT and OCP/ DMPA 1 month prior to surgery and hold for 1 month postop, and use control during this time if appropriate. Physical exam: Blood pressure 139/81, pulse 87, resp. rate 18, height 175 cm (5' 8.9), weight 116.801 kg (257 lb 8 oz), SpO2 98.00%. Neuro and psych: Non-focal, gait normal. Pleasant, conversant, normal affect, cognition and mood. ENT: neck thick, supple with normal ROM, no adenopathy. Neck circumference is 17 inches Crowded posterior oropharynx, S/P UVPP. Tongue deviates to left Lungs: CTA without wheezing. Heart: irreg irreg, no murmur appreciated. Abdomen: protuiberant, soft, non- tender, well healed trocar sites Waist circumference is 53 inches Extremities: venous stasis changes with tele Skin: No areas of skin breakdown. Tattoo right arm of tiger Obesity distribution: central Discussion of treatment of obesity and of the [facility] Bariatric Surgery Program: Mr.. Purvis is aware that other treatments for obesity are available, ie, dietary, behavior modification, weight loss medications, exercise as well as surgical weight loss methods. The risks and benefits of bariatric surgery, including gastric bypass, adjustable gastric banding and sleeve gastrectomy are discussed at every Introduction to the [facility] Bariatric Surgery Program meeting and all Educational Seminars, and will be reviewed in detail at the second pre- operative visit. The importance of incorporating lifestyle activity and regular exercise, such as walking, or swimming, after discussion and approval by his primary long term care phlebotomist, prior to surgery, as well as post-operatively, was stressed. He is aware of our programmatic approach which includes four bariatric surgeons, as well as a dietitian and nurse practitioner. Mandatory requirements include: 1. attendance at a two hour Introduction to the [facility] Bariatric Surgery Program seminar 2. view 3 Bariatric Surgery Educational seminars and complete post testing 3. a no weight gain policy. Ongoing weight loss is encouraged. Insurers may have additional weight loss requirements. 4. a minimum of two pre-operative visits with the dietitian and nurse practitioner 5. surgical consultation 6. Two hour pre-operative class and completion of post-testing 7. any additional requirements mandated by the patient's insurance carrier. Prospective patients are encouraged to thoroughly research bariatric surgery, via the internet, the[facility] website at [email or web address], books, and journals. In addition, information on bariatric surgery is available at the [employer] at [facility]. Assessment/ Plan: 62 y.o. year old male with Class II obesity with BMI of 38.1 with established obesity-related chronic disease including hypertension, type 2 diabetes, obstructive sleep apnea, hyperlipidemia and impairment of well-being. ?? He has had a prior repair of a paraesophageal hernia and Afsaneh fundoplication, which will add complexity to a bariatric procedure. He is interested in a sleeve gastrectomy, and will need a bariumswallow and possibly an upper endoscopy to assess his upper GI anatomy. ?? A preoperative cardiology evaluation has been requested given his cardiac risk factors and chronic atrial fibrillation. A thrombosis clinic evaluation has been requested for perioperative anticoagulation recommendations since has multiple risk factors for VTE and is on chronic anticoagulation therapy. ?? Today's labwork reveals a mildly elevated TSH with decreased T4. Follow up with his primary carephysician is advised. He has had failure to sustain weight loss by medical management and meets the criteria proposed by the NIH Consensus Guidelines for surgical treatment of severe obesity. He is aware that there are non-surgical methods to achieve weight loss. He has been will be given a follow up appointment to discuss the risks and benefits of bariatric surgery after a barium swallow is completed and reviewed. He has had an opportunity to have all his questions answered and is in agreement with the plan of care. He was encouraged to call with any questions or concerns. Data reviewed: PCP notes, lab data, radiology/cardiology reports, psychological evaluation. Information given to patient: 1. [facility] Bariatric Surgery Education Handbook, a 102 page document (revision July 2013) which contains extensive information regarding pre and post- operative care including: a copy of the Patient Agreement, illustrations of GI anatomy and gastric bypass, gastric banding and sleeve gastrectomy surgeries, [facility] Rehab Medicine recommendations and exercises prior to surgery, gastric bypass, gastric banding and sleeve gastrectomy risks and benefits, dietary information including the pre-operative and post-operative diets, DVT prevention guidelines,information on medications that can increase the risk of bleeding, pre-op preparation information, post-operative instructions and contact numbers. Pending: - Follow up with his primary care physician regarding thyroid testing abnormalities. - Barium swallow - Path report colonscopy - Preoperative cardiology/ thrombosis clinic evaluations - CBC and CMP within 3 months of surgery, per ACS accredited bariatric center guidelines - Ongoing weight loss encouraged - 2nd visits with RD and PELT INSPECTOR Questions regarding [facility] Bariatric Surgery Program patients: please call Shayy Allen APRN at [phone] or [phone] beeper [phone]. * Rowan Deutsch RD - 11/02/2013 9:27 AM EST Bariatric Surgery Program Initial Nutrition Assessment SUBJECTIVE -Checks BG every other day, usually before lunch, range ~100mg/dl. Reports most recent A1c at 6.5%. Eugene Purvis is being seen today for a preoperative evaluation in anticipation of weight loss surgery. Preferred procedure: Sleeve Gastrectomy Weight History: Date Weight (lbs) HT BMI Comments 10/02/13 266 Highest Weight 10/02/13 266 68 40.4 Initial program weight 11/03/13 257 68.9 38.1 1st pre-op visit EWL % Surgery 1 month post-op 4 months post-op Goal Weight: 170-175#. 1/3rd body weight loss= 172#. History of obesity since: age 44 Social history: , 3 grown children, 2 stepchildren. Eugene live with one of his sons, Momo(age 36), who is on disability. Close with his 3 siblings, though they live in different states. Biggest support is his son Momo. 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 Motivating Factors for Seeking Weight Loss Surgery: ?? [x] Improved Health ?? [ ] assisted weight loss ?? [x] Improved quality of life ?? [x] Increased activity Research: ?? [ ] Reading (Internet, books, etc.) ?? [x] Talking to people who have had weight loss surgery- aunt, though thinks she had a band. ?? [x] Attending introductory seminar ?? [x] Watching videos Contributing Factors to Obesity: ?? [ ] Hx Binge Eating / Eating disorder ?? [x] Overconsumption ?? [ ] Fast eater ?? [ ] Nighttime eating ?? [ ] Emotional eating ?? [ ] Mindless eating ?? [ ] Choosing high calorie foods ?? [ ] Snacking ?? [ ] Meal skipping ?? [x] Physical Inactivity ?? [ ] Genetics Eating Triggers: ?? [ ] Emotions: ?? [x] Boredom ?? [x] Stress- reports does not stress out like he used to in the past. Has other ways to deal withstress now, such as walking away from stress and thinking about it and then coming back to deal with it. ?? [ ] Fatigue ?? [x] Physical Hunger ?? [ ] Eating on a Schedule ?? [ ] Other: Recent Changes in Dietary/Lifestyle Habits: ?? [x] Smaller portions- able to leave food on his plate now ?? [ ] Eating slower ?? [ ] More fruits, vegetables, and whole grains ?? [ ] Leaner proteins ?? [ ] Lower calorie cooking methods (baking, broiling, grilling, etc.) ?? [ ] Nutrition Counseling with PCP or RD ?? [ ] No longer buying tempting foods from grocery store ?? [x] Cutting out soda ?? [ ] Eating regular meals ?? [ ] Increased physical activity ?? [ ] Other: ?? Date changes implemented: July to September 2013 Exercise: ?? Brisk walking x 20 minutes, 3 days per week. ?? This past weekend went [facility] gym and pool [facility] near his home- may ultimately get a membership. Dieting History: Type of Diet Wt Lost (lbs.) Wt. Regain (lbs.) Dates Duration Comments Atkins 0 0 Early 1989's Can't remember Mclean 10 12 1979's 3 months Health Coaching 9 0 2012 For past 12 months, [facility]- sets goals, food tips History of binging/purging? denies History of diet pills or laxatives? denies Typical Daily Intake: Breakfast Bowl cereal (kashi blueberry medley or strawberry one) w 1% milk/occasionally eggs, rye toast (2 w some smart balance) AM Snack none Lunch Tuna sandwich on rye (made at home) PM Snack none Supper 2 ham and cheese sandwiches on homemade wheat bread/6-8oz fish, brown rice, brussel sprouts HS Snack Apple/candy bar- rare- reeses peanut butter cup Beverages: ?? Hydrating beverages: 64oz water, some milk (1%) ?? Caffeinated beverages: 1-2 cups per day- sometimes has decaf instead. Adds splenda to coffee sometimes ?? Juice/sports drinks: none- v8 vegetable juice only ?? Soda: cut out diet soda ?? ETOH: none Supplements/Vitamins: omega-3 krill oil daily, vitamin D3 2000 IU daily, green tea complex 500mg twice daily, acai 500 mg twice daily, trubiotics daily Food dislikes: liver Food Allergies/Intolerances: ?? [ ] Gluten ?? [ ] Lactose ?? [ ] Other: ?? [x] None Summary Eugene Purvis has been referred for nutrition evaluation and diet instruction in anticipation of bariatric surgery. Previous conservative attempts at weight loss through dieting have been unsuccessful over the terminologist. Patient has made lifestyle changes since attending introductory visit, including cutting out diet soda (carbonation) and eating smaller portions. Patient does need to work onincreasing veggies and adding a MVI, which he is agreeable to. Predicted weight loss with surgery is an estimated 50-70% of excess body weight. Advised pt that bariatric surgery is a tool, not a solution; and ultimately, weight loss will be achieved through proper eating and exercise habits. He showed good understanding of the concepts discussed. NUTRITION DIAGNOSIS: - Obesity related to physical inactivity and over consumption as evidenced by BMI of 38.1. INTERVENTION: 1) Patient to practice post-op GB diet recommendations prior to surgery to support post-op success and long-term weight loss: Eat 3 meals daily, spaced about 4-6 hours apart. Take your time when eating meals, at least 20-30 minutes per meal. Avoid soda and limit caffeine consumption. Sip 48-64 oz hydrating fluid daily between meals and avoid drinking with meals. Use smaller plates/bowls/utensils for meals and eat smaller portions. Plan meals 1 wk in advance and shop with a list. 2) Start/continue taking a complete multivitamin daily. 3) Exercise with the eventual goal of 30 minutes minimum 5 days per week or exercise as recommendedby MD. 4) Practice this Meal Format: Protein first at all meals! Only eat until full. Breakfast 1st Protein (15-20 grams) 2nd Fruit (1 piece or ?? cup) 3rd Starch (1 serving) Lunch and Dinner 1st Protein (20 grams) 2nd Non Starchy Vegetables (no limit, no fat) 3rd Starch (1 serving) 4th Fruit (1 piece or ?? cup) 1 serving of starch = 1 slice toast; ?? [place] muffin; 1 small vianey or wrap; ?? cup cooked potato,corn, peas, winter squash, rice, or pasta Non Starchy vegetables include all those except corn, peas, winter squash, beans, and potatoes. Snacks: 1-2 per day if physically hungry - choose a protein or a fruit. MONITORING and EVALUATION: - Weight will be monitored at each visit - Patient to attend two pre-op educational classes prior to surgery documented in this encounter Plan of Treatment Upcoming Encounters Date Type Department Care Team (Late st Contact Info) Description 05/15/2024 10:00 AM EDT [place] [id number] Catrachito Mehta MD [facility] [place] [address] Scheduled Referrals Name Type Priority Associated Diagnoses Orde r Schedule Referral to Cardiology Outpatient Referral Routine Morbid obesity Hypertension Type 2 diabetes mellitus Obstructive sleep apnea (adult) (pediatric) Hyperlipidemia Chronic anticoagulation Ordered: 11/08/2013 Referral to Hematology and Oncology Outpatient Referral Routine Morbid obesity Venous stasis Chronic anticoagulation Ordered: 11/08/2013 documented as of this encounter Procedures Procedure Name Priority Date/Time Associated Diagnosis Comments PTH Routine 11/03/2013 10:21 AM EST Morbid obesity Hypertension Type 2 diabetes mellitus Obstructive sleep apnea (adult) (pediatric) Hyperlipidemia Venous stasis Vitamin D deficiency Screening for iron deficiency anemia HEMOGRAM Routine 11/03/2013 10:21 AM EST Morbid obesity Hypertension Type 2 diabetes mellitus Obstructive sleep apnea (adult) (pediatric) Hyperlipidemia Venous stasis Vitamin D deficiency Screening for iron deficiency anemia IRON AND TIBC Routine 11/03/2013 10:21 AM EST Morbid obesity Hypertension Type 2 diabetes mellitus Obstructive sleep apnea (adult) (pediatric) Hyperlipidemia Venous stasis Vitamin D deficiency Screening for iron deficiency anemia VITAMIN A Routine 11/03/2013 10:21 AM EST Morbid obesity Hypertension Type 2 diabetes mellitus Obstructive sleep apnea (adult) (pediatric) Hyperlipidemia Venous stasis Vitamin D deficiency Screening for iron deficiency anemia VITAMIN D, 25-HYDROXY Routine 11/03/2013 10:21 AM EST Morbid obesity Hypertension Type 2 diabetes mellitus Obstructive sleep apnea (adult) (pediatric) Hyperlipidemia Venous stasis Vitamin D deficiency Screening for iron deficiency anemia URIC ACID Routine 11/03/2013 10:21 AM EST Morbid obesity Hypertension Type 2 diabetes mellitus Obstructive sleep apnea (adult) (pediatric) Hyperlipidemia Venous stasis Vitamin D deficiency Screening for iron deficiency anemia T UPTAKE Routine 11/03/2013 10:21 AM EST TSH Routine 11/03/2013 10:21 AM EST Morbid obesity Hypertension Type 2 diabetes mellitus Obstructive sleep apnea (adult) (pediatric) Hyperlipidemia Venous stasis Vitamin D deficiency Screening for iron deficiency anemia T4, FREE Routine 11/03/2013 10:21 AM EST HEMOGLOBIN A1C Routine 11/03/2013 10:21 AM EST Morbid obesity Hypertension Type 2 diabetes mellitus Obstructive sleep apnea (adult) (pediatric) Hyperlipidemia Venous stasis Vitamin D deficiency Screening for iron deficiency anemia GAMMA GT Routine 11/03/2013 10:21 AM EST Morbid obesity Hypertension Type 2 diabetes mellitus Obstructive sleep apnea (adult) (pediatric) Hyperlipidemia Venous stasis Vitamin D deficiency Screening for iron deficiency anemia FOLATE, SERUM Routine 11/03/2013 10:21 AM EST Morbid obesity Hypertension Type 2 diabetes mellitus Obstructive sleep apnea (adult) (pediatric) Hyperlipidemia Venous stasis Vitamin D deficiency Screening for iron deficiency anemia FERRITIN Routine 11/03/2013 10:21 AM EST Morbid obesity Hypertension Type 2 diabetes mellitus Obstructive sleep apnea (adult) (pediatric) Hyperlipidemia Venous stasis Vitamin D deficiency Screening for iron deficiency anemia VITAMIN B12 Routine 11/03/2013 10:21 AM EST Morbid obesity Hypertension Type 2 diabetes mellitus Obstructive sleep apnea (adult) (pediatric) Hyperlipidemia Venous stasis Vitamin D deficiency Screening for iron deficiency anemia COMPREHENSIVE METABOLIC PANEL (NON-FASTING) Routine 11/03/2013 10:21 AM EST Morbid obesity Hypertension Type 2 diabetes mellitus Obstructive sleep apnea (adult) (pediatric) Hyperlipidemia Venous stasis Vitamin D deficiency Screening for iron deficiency anemia documented in this encounter Results * XR Fluoro Barium swallow (11/18/2013 9:07 AM EST) Anatomical Region Laterality Modality N/A Radiographic Sia ging 11/18/2013 9:07 AM EST Narrative 11/18/2013 9:25 AM EST Examination BARIUM SWALLOW Clinical History preop bariatric surgery, s/p paraesophagal hernia repair and Afsaneh in 2001. Check integrity of wrap and evaluate for reflux Comparison None. Technique A single contrast barium swallow was performed. ??The patient drank barium and fluoroscopic spot views were obtained in both the upright and recumbent positions. Findings The esophagus is normal in caliber and shows normal peristalsis. ??There is no evidence of esophageal stricture, mass or mucosal thickening. The Afsaneh fundoplication is intact. The caliber of the distal esophagus tapers through the Afsaneh wrap but there is a small paraesophageal hiatal hernia and a moderate amount of gastroesophageal reflux is noted up into the mid esophagus. The stomach is normal and there is no evidence of gastric outlet obstruction. ?? Impression Small recurrent paraesophageal hernia. ??The Afsaneh wrap is intact but there is a moderate amount of gastroesophageal reflux. Procedure Note Luther Price MD - 11/18/2013 Examination BARIUM SWALLOW Clinical History preop bariatric surgery, s/p paraesophagal hernia repair and Afsaneh [id number]. Check integrity of wrap and evaluate for reflux Comparison None. Technique A single contrast barium swallow was performed. The patient drank bariumand fluoroscopic spot views were obtained in both the upright and recumbent positions. Findings The esophagus is normal in caliber and shows normal peristalsis. There isno evidence of esophageal stricture, mass or mucosal thickening. The Afsaneh fundoplication is intact. The caliber of the distal esophagus tapersthrough the Afsaneh wrap but there is a small paraesophageal hiatal hernia and a moderate amount of gastroesophagealreflux is noted up into the mid esophagus. The stomach is normal and there is no evidence of gastric outlet obstruction. Impression Small recurrent paraesophageal hernia. The Afsaneh wrap is intact butthere is a moderate amount of gastroesophageal reflux. Wally Pfeiffer MD IMG FLUORO ORDERABL ES * (ABNORMAL) T4, free (11/03/2013 10:21 AM EST) Free T4 0.72(L) 0.90 - 1.60 ng/dL [facility] Blood specimen (specimen) 11/03/2013 10:21 AM EST 11/03/2013 10:37 AM EST Narrative Resulting Agency Comment Spec In Lab Wally Pfeiffer MD CHEMISTRY ORDERABLE S [facility] * T Uptake (11/03/2013 10:21 AM EST) T Uptake 1.16 0.80 - 1.30 ratio [facility] Comment: Tup assay is directly proportional to Thyroid binding protein concentration, thus FT4 Index = TT4/Tup. Blood specimen (specimen) 11/03/2013 10:21 AM EST 11/03/2013 10:37 AM EST Narrative Resulting Agency Comment Spec In Lab Wally Pfeiffer MD CHEMISTRY ORDERABLE S Performing Organization Address City/[facility] Co de Phone Number CERWALDO KRAFTIUM * Gamma GT (11/03/2013 10:21 AM EST) GGT 27 8 - 61 unit/L [facility]ERNER MILLENNIUM Blood specimen (specimen) 11/03/2013 10:21 AM EST 11/03/2013 10:28 AM EST Narrative Resulting Agency Comment Spec In Lab Wally Pfeiffer MD CHEMISTRY ORDERABLE S Performing Organization Address City/[facility] Co de Phone Number DERICK KRAFTIUM * (ABNORMAL) TSH (11/03/2013 10:21 AM EST) TSH 4.30(H) 0.27 - 4.20 mcIU/mL [facility]ERN[facility] MILLENNIUM Blood specimen (specimen) 11/03/2013 10:21 AM EST 11/03/2013 10:28 AM EST Narrative Resulting Agency Comment Spec In Lab Wally Pfeiffer MD CHEMISTRY ORDERABLE S Performing Organization Address [facility] Co tx Phone Number DERICK KRAFTIUM * Uric acid (11/03/2013 10:21 AM EST) Uric Acid 6.3 3.5 - 8.5 mg/dL [facility]ERN[facility] MILLENNIUM Blood specimen (specimen) 11/03/2013 10:21 AM EST 11/03/2013 10:28 AM EST Narrative Resulting Agency Comment Spec In Lab Wally Pfeiffer MD CHEMISTRY ORDERABLE S Performing Organization Address City/[facility]/ZIP Co de Phone Number [facility] * Folate, serum (11/03/2013 10:21 AM EST) Folate Lvl 12.3 4.6 - 34.8 ng/mL [facility] Blood specimen (specimen) 11/03/2013 10:21 AM EST 11/03/2013 10:28 AM EST Narrative Resulting Agency Comment Spec In Lab Wally Pfeiffer MD CHEMISTRY ORDERABLE S Performing Organization Address City/[facility]/ZIP Co de Phone Number [facility] * Vitamin B12 (11/03/2013 10:21 AM EST) Vitamin B-12 701 207 - 974 pg/mL [facility] Blood specimen (specimen) 11/03/2013 10:21 AM EST 11/03/2013 10:28 AM EST Narrative Resulting Agency Comment Spec In Lab Wally Pfeiffer MD CHEMISTRY ORDERABLE S Performing Organization Address [facility] Co de Phone Number [facility] * VIT D Total Evaluation (11/03/2013 10:21 AM EST) 25-OH Vit D Total 46 30 - 100 ng/mL [facility] Comment: Deficient <10 ng/mL Insufficient 10 to 29 ng/mL Sufficient 30 to 100 ng/mL Potential Intoxication >100 ng/mL According to the [place] National Osteoporosis Foundation, Vitamin D concentrations >30 ng/mL are sufficient to protect bone health. ??The National Kidney Foundation has similarly stated that patients with Vitamin D concentrations <30ng/mL should be considered to be insufficient or deficient. http://www.kidney.org/professionals/KDOQI/guidelines_bone/Guide7.htm http://www.nof.org/professionals/clinical-guidelines The IDS iSYS Vitamin D Immunoassay detects both 25-OH Vitamin D2 and 25-OH Vitamin D3, but only a total Vitamin D concentration is reported. Blood specimen (specimen) 11/03/2013 10:21 AM EST 11/03/2013 10:28 AM EST Narrative Resulting Agency Comment Spec In Lab Wally Pfeiffer MD CHEMISTRY ORDERABLE S Performing Organization Address City/[facility]/ZIP Co de Phone Number [facility] * PTH (11/03/2013 10:21 AM EST) PTH 40 15 - 65 pg/mL [facility] JEFFREYENNIUM Blood specimen (specimen) 11/03/2013 10:21 AM EST 11/03/2013 10:28 AM EST Narrative Resulting Agency Comment Spec In Lab Wally Pfeiffer MD CHEMISTRY ORDERABLE S Performing Organization Address [facility] Co de Phone Number [facility] * Vitamin A (11/03/2013 10:21 AM EST) Vitamin A 49.8 32.5 - 78.0 mcg/dL [facility] Comment: Test Performed by: [facility] [place] [address] Publishing Manager: Bronwyn Seals, Ph.D. Blood specimen (specimen) 11/03/2013 10:21 AM EST 11/03/2013 11:28 AM EST Narrative Resulting Agency Comment Spec In Lab Wally Pfeiffer MD CHEMISTRY ORDERABLE S Performing Organization Address [facility] Co de Phone Number DERICK KRAFTIUM * Ferritin (11/03/2013 10:21 AM EST) Ferritin 118 30 - 400 ng/mL [facility] JEFFREYENNIUM Comment: Pediatric reference ranges not verified at [facility], interpret with caution. Reference ranges for females greater than 50 years of age approach values for men, i.e., 30-400 ng/mL. Blood specimen (specimen) 11/03/2013 10:21 AM EST 11/03/2013 10:28 AM EST Narrative Resulting Agency Comment Spec In Lab Wally Pfeiffer MD CHEMISTRY ORDERABLE S [facility] * Iron and TIBC (11/03/2013 10:21 AM EST) Iron 67 45 - 160 mcg/dL [facility] TIBC 311 250 - 450 mcg/dL [facility] Iron Saturation 22 20 - 50 % SARTHAKN AUSTIN MURPHY Blood specimen (specimen) 11/03/2013 10:21 AM EST 11/03/2013 10:28 AM EST Narrative Resulting Agency Comment Spec In Lab Wally Pfeiffer MD CHEMISTRY ORDERABLE S [facility] * (ABNORMAL) Hemoglobin A1c (11/03/2013 10:21 AM EST) Hemoglobin A1C 7.9(H) <=5.6 % PRIYANKA MURPHY Comment: As of 2013 the methodology for Hemoglobin A1c testing has changed. This change is accompanied by a new interpretive statement and flags. Please review the new interpretive statement and contact Dr. Berkowitz or Dr. Beckham with questions. Reference Range: 4.3 ? 5.6% 5.7 ? 6.4% - Increased Risk of Developing Diabetes Mellitus 6.5% - Consistent with diagnosis of Diabetes Mellitus In the absence of hyperglycemia (i.e. plasma glucose > 200 mg/dL) or classic symptoms of hyperglycemia a repeat measurement of HbA1c should be performed on a separate sample to confirm the diagnosis. Diagnosis and Classification of Diabetes Mellitus, Diabetes Care 2013; 36: Suppl. 1, S67-74 Est Avg Gluc 180 mg/dL [facility] Comment: eAG equivalents for HbA1c percentages: HbA1c(%) ?eAG(mg/dL) 6.0 ?126 6.5 ?140 7.0 ?154 7.5 ?169 8.0 ?183 8.5 ?197 9.0 ?212 9.5 ?226 10.0 ? 240 Limitations: The eAG calculation has not been validated on women, individuals below 18 years old and above 70 years old, and individuals with hemoglobinopathies. Additional resources are available on the ADA website: ??http://professional.diabetes.org/glucosecalculator.aspx Keyon MACHADO, Buddy J, Maynor R, et al. ??Translating the A1C assay into estimated average glucose values. ??Diabetes Care 2008:31(8):7826-8602. Blood specimen (specimen) 11/03/2013 10:21 AM EST 11/03/2013 10:28 AM EST Narrative Resulting Agency Comment Spec In Lab Wally Pfeiffer MD CHEMISTRY ORDERABLE S CERNER MILLENNIUM * Comprehensive metabolic panel (non-fasting) (11/03/2013 10:21 AM EST) [facility] Glucose Lvl 155 60 - 199 mg/dL CERNER MILLENNIUM Comment:Diabetes: >=200 mg/d L plus symptoms BUN 19 10 - 20 mg/dL CERNER MILLENNIUM Creatinine 0.98 0.80 - 1.50 mg/dL CERNER MILLENNIUM Comment: Please note that the pediatric reference intervals supplied above were not validated at [facility]. Results from pediatric patients should be interpreted [...] 5 - 15 mmol/L CERNER MILLENNIUM Calcium 9.5 8.5 - 10.5 mg/dL [facility]ERN[facility] MILLENNIUM Total Protein 6.8 6.4 - 8.3 gm/dL CERNER MILLENNIUM Albumin 4.3 3.2 - 5.2 gm/dL [facility]ERN[facility] MILLENNIUM AST 18 0 - 39 unit/L [facility]ERN[facility] MILLENNIUM ALT 22 0 - 55 unit/L CERNER MILLENNIUM Alk Phos 51 40 - 120 unit/L CERNER MILLENNIUM Total Bilirubin 0.5 0.2 - 1.3 mg/dL CERNER MILLENNIUM Bili, Direct 0.1 0.0 - 0.3 mg/dL CERNER MILLENNIUM Estimated GFR >60 >=60 [...] internet browser. http://www.nkdep.nih.gov/lab-evaluation.shtml http://www.kidney.org/professionals/ Blood specimen (specimen) 11/03/2013 10:21 AM EST 11/03/2013 10:28 AM EST Narrative Resulting Agency Comment Spec In Lab Wally Pfeiffer MD CHEMISTRY ORDERABLE S [facility]NI[facility] * (ABNORMAL) Hemogram (11/03/2013 10:21 AM EST) WBC 8.0 4.0 - 10.0 x10(3)/mcL CERNER MILLENNIUM RBC 4.58(L) 4.63 - 6.08 x10(6)/mcL CERNER MILLENNIUM Hemoglobin 13.2(L) 13.7 - 17.5 gm/dL CERNER MILLENNIUM Hematocrit 39.1(L) 40.0 - 51.0 % CERNER MILLENNIUM MCV 85.4 79.0 - 92.0 fL CERNER MILLENNIUM MCH 28.8 25.6 - 32.2 pg CERNER MILLENNIUM MCHC 33.8 32.0 - 36.5 gm/dL CERNER MILLENNIUM Platelets 199 145 - 370 x10(3)/mcL CERWALDO MURPHYENNIUM RDWSD 43.3 35.0 - 46.0 fL SARTHAKNER MILLENNIUM RDWCV 14.0 10.9 - 14.4 % CERWALDO MURPHYENNIUM MPV 9.2 9.0 - 12.0 fL DERICK MURPHYENNIUM Blood specimen (specimen) 11/03/2013 10:21 AM EST 11/03/2013 10:28 AM EST Narrative Resulting Agency Comment Spec In Lab Wally Pfeiffer MD HEMATOLOGY ORDERABL ES DERICK MURPHY documented in this encounter Visit Diagnoses Diagnosis Morbid obesity Hypertension Unspecified essential hypertension Type 2 diabetes mellitus Type II or unspecified type diabetes mellitus without mention of complication, not stated as uncontrolled Obstructive sleep apnea (adult) (pediatric) Hyperlipidemia Other and unspecified hyperlipidemia Venous stasis Unspecified venous (peripheral) insufficiency Vitamin D deficiency Unspecified vitamin D deficiency Screening for iron deficiency anemia Status post Afsaneh fundoplication (without gastrostomy tube) procedure Follow-up examination, following unspecified surgery Elevated TSH Other abnormal blood chemistry Chronic anticoagulation Encounter for long-term (current) use of anticoagulants Morbid obesity Status post Afsaneh fundoplication (without gastrostomy tube) procedure Follow-up examination, following unspecified surgery documented in this encounter Care Teams Home Care Consultant Relationship Specialty Start Date End Date Manolo Castro MD [address] [place] [address] PCP - General 05/14/12 04/21/17 documented as of this encounter
--- OUTSIDE RECORDS SUMMARY | 2024-04-27 14:56 | XMS_ITS | Encounter Summary ---
[facility] Organization [facility] Address [facility] [place] [address] Care Team Providers Care Pharmacy Specialist Name Role Phone Manolo Castro MD Primary Care Provider [phone] Encounter Details Date Type Department Care Team (Latest Contact Info) Description 12/11/2013 8:07 AM EST - 12/11/2013 11:36 AM EST Hospital [place] [address] Misty De Guzman MD [facility] [place] [address] Discharge Disposition: Home Social History Tobacco Use [...] occurs, please contact your MD/ Please call [phone] before 5pm with problems, questions or concerns. After 5pm call [phone] and ask to speak with the recruiting operations consultant cotton bag clipper. Discharge instructions reviewed with patient who expresses understanding. * Attachments The following attachments cannot be sent through Care Everywhere. * UPPER GI ENDOSCOPY: WHAT TO EXPECT AT HOME (SYRIAN) documented in this encounter Medications at Time [...] 12/11/2013 9:40 AM EST Patient Name: Eugene Purvis Patient Age: 62 y.o. Birthdate: 1950 Admit date: 12/11/2013 Attending Physician: Misty De Guzman MD Eugene Purvis is a 62-year-old gentleman who presents referred for possible bariatric surgery. He is a gentleman that has currently had full participation in the [facility] Bariatric Surgery Program and meets NIH criteria [...] majority of our 40 minutes today in [id number] conversation regarding various treatment options for obesity [...] 9:19 PM EST * Miscellaneous - Provider, Sang - 12/11/2013 5:37 PM EST documented in this encounter Plan of Treatment Upcoming Encounters Date Type Department Care Team (Late st Contact Info) Description 05/15/2024 10:00 AM EDT [place] [address] Catrachito Mehta MD [facility] [place] [address] documented as of this encounter Procedures Procedure [...] 10:10 AM EST) Surgical Pathology Report ? [facility] ? Provider: ?? MISTY DE GUZMAN ??Pt. Name: ?? EUGENE PURVIS ? Acc #: ?[id number] ?Pt. ? Col Date: ?? 12/11/2013 ?/Sex: [...] EST Misty De Guzman MD PATHOLOGY/CYTOLOGY ORDERABLES Performing Organization Address City/State/[facility] Co de Phone Number DERICK MURPHY * Specimen to Pathology (surgical or derm) (12/11/2013 10:10 AM EST) AP Specimen 12/11/2013 10:1 0 AM EST 12/11/2013 10:10 AM EST Narrative DERICK MURPHY - 12/11/2013 10:10 AM EST Specimen requisition ordered. ??Separate Pathology report to follow Misty De Guzman MD PATHOLOGY/CYTOLOGY ORDERABLES DERICK MURPHY * UPPER GI ENDOSCOPY (12/11/2013 9:31 AM EST) UPPER GI ENDOSCOPY [facility] Endoscopy Patient Name: Eugene Purvis ? Procedure Date: 12/11/2013 9:31 AM ? N: [id number] ? Date of : 1950 ? Age: 62 ? Order #: [id number] ? Procedure: ? Upper GI endoscopy Indications: ? Preoperative assessment for bariatric ? surgery, Assessment following Ronnell ? fundoplication Providers: ? Misty De Guzman MD, Nora ? FRACISCO Villafuerte, Milka Baez, ? Supervisory Civil Engineer Referring MD: ?Manolo Castro MD Medicines: ? [...] GENERAL SURGICAL ORD ERABLES Performing Organization Address [facility] Co de Phone Number PROVATION * POCT Glucose (12/11/2013 8:59 AM EST) POC Glucose 172 60 - 199 mg/dL CERNER MILLENNIUM Comment: Supplemental ranges: <110 mg/dL before meals <200 mg/dL all other times of the day Blood specimen (specimen) 12/11/2013 8:59 AM EST 12/11/2013 8:59 AM EST Misty De Guzman MD POINT OF CARE TEST ORDERABLES Performing Organization Address [facility] de Phone Number [facility] documented in this encounter Visit Diagnoses Not on filedocumented in this encounter Active and Recently Administered Medications Times are shown in EST. PRN Medication Order 12/09/2013 12/10/2013 12/11/2013 fentaNYL 50mcg/mL injection (CANCELED) ONCE PRN, Starting on 12/11/13 at 0946, Until Sat12/11/13 at 1103, Pain, [...] RN) documented in this encounter Care Teams Pharmacy Specialist Relationship Specialty Start Date End Date Manolo Castro MD [address] [place] [address] PCP - General 05/14/12 04/21/17 documented as of this encounter
--- OUTSIDE RECORDS SUMMARY | 2024-04-27 14:56 | XMS_ITS | Encounter Summary ---
Author Organization [facility] Address [facility] [address] Care Team Providers Care Personnel Security Assistant Name Role Phone Manolo Castro MD Primary Care Provider [phone] Reason for Visit * Reason Onset Date Comments Follow-up 12/14/2013 Encounter Details Date Type Department Care Team (Late Contact Info) Description 12/14/2013 Telephone [place] [address] Narda Allen, WATER SUPPLY ENGINEER [facility] [place] [address] Follow-up Social History Tobacco Use Types Packs/Day [...] * Telephone Encounter - Narda Allen - 12/14/2013 8:30 AM EDT I called Mr Rueda to follow up on his endoscopy on 12/11, which was aborted due to large amount ofretained food. He reports that he ate 2 pieces of toast at midnight 9 hours prior to the exam, and coffee in the am. Plan: he will be rescheduled for an EGD documented in this encounter Plan of Treatment Upcoming Encounters Date Type Department Care Team (Late st Contact Info) Description 05/15/2024 10:00 AM EDT Office [place] [address] Catrachito Mehta MD [facility] [place] [address] documented as of this encounter Visit Diagnoses Not on filedocumented in this encounter Care Teams Personnel Security Assistant Relationship Specialty Start Date End Date Manolo Castro MD [address] [place] [address] PCP - General 05/14/12 04/21/17 documented as of this encounter
--- OUTSIDE RECORDS SUMMARY | 2024-04-27 14:56 | XMS_ITS | Encounter Summary ---
Author Organization [facility] [place] [address] Care Team Providers Care Psychology Instructor Name Role Phone Manolo Castro MD Primary Care Provider [phone] Reason for Visit * Reason Comments Patient Education Bariatric Surgery Pr ogram preoperative class Encounter Details Date Type Department Care Team ([facility] Contact Info) Description 12/18/2013 10:00 AM EDT Office [place] [address] Narda Allen, BOARD CERTIFIED MUSIC THERAPIST [facility] [place] [address] Obesity (Primary Dx); Atrial fibrillation; Chronic anticoagulation; Esophageal reflux; CARLOS A (obstructive sleep apnea) Discharge Disposition: Home Social History Tobacco Use [...] Instructions * Patient Instructions* Narda Allen - 12/18/2013 10:30 AM EDT Your surgery needs to be postponed- no approval by insurer, further testing needs to be done. Another endoscopy is needed. BARIATRIC SURGERY DISCHARGE INFORMATION CONTACT INFORMATION: [phone] Surgeons: Dr. Martinez, Cyndi, Margarette and Trus [phone] Reservation Clerk: [phone] (Saturday through Saturday, 8:00 AM -5:00 PM) Dietitian: [phone] Non-business hours: [phone], ask for general surgeon boning room worker FOR EMERGENCIES: CALL 911 (trouble breathing, chest [...] after surgery. This can be done at [facility] or via Primary Care Provider (PCP). Do [...] please follow the instructions written at discharge. ULCER PREVENTION: omeprazole 20 mg daily (or any medication you may currently take for heartburn/reflux) must be taken for 3 MONTHS after surgery: Take this to prevent ulcers, even if you do not haveheartburn. GALLSTONE PREVENTION: (ONLY if you have a [...] than 150, do not restart diabetes medications. Patients on oral diabetic medication: If blood sugar is over 200 on more than 3 rechecks, call [facility] or diabetic specialist for specific recommendations, or as recommended at discharge. Follow up with primary care doctor or continuous improvement specialist in 1-2 weeks. Bring meter to [...] Progress Notes * Rowan Deutsch RD - 12/18/2013 8:18 AM EDT Eugene attended a comprehensive two hour pre-operative class today, which included discussion of pre and post operative instructions included in the [facility] Bariatric Surgery Program Education Handbook.One hour of [...] questions were answered. * Narda Allen - 12/17/2013 3:34 PM EDT Eugene attended a comprehensive two hour pre-operative class today, which included discussion of pre and post operative instructions included in the [facility] Bariatric Surgery Program Education Handbook.The one hour nutrition component of the class was taught by the BSP RD. OR date: on hold until completion of testing- gastric emptying scan and EGD. Takedown of afsaneh fundoplication, conversion to sleeve gastrectomy with Dr Pfeiffer Individualized plan of care: ?? CPAP use during hospital stay ?? Close blood pressure/ glucose/INR monitoring post discharge Recommendations for post discharge VTE prophylaxis (unless change in condition during hospitalization that would contraindicate treatment): see Thrombosis Clinic recommendations POST PROCEDURE RECOMMENDATIONS: DAY [...] to three more days and check again. Prescriptions: not provided because OR date unknown, will be faxed at later date when OR date known. Ursodiol 300 mg BID x 6 months, [...] with Vitamin D 400 units twice daily ?? Iron with Vitamin C, 50-66 mg once daily (take iron with vitamin C 550 mg to help with absorption) Bariatric Surgery Program Pathway and review of status with the requirements of the Bariatric Surgery Program 1. Education: He previously attended a Introduction to the [facility] Bariatric Surgery Program seminar,a two hour meeting that provides a program overview as well as expectations. The [facility] Bariatric Surgery Program Educational seminar requirement (3 seminars with post-testing) has been met. The BSP Educational Handbook was provided at visit #1. 2. Pre-operative programmatic evaluations have been done, as noted in previous pathway review. 3. Bariatric Surgery Program evaluations with RD and SOCIAL SCIENCES CHAIR have taken place, as noted in previous [...] of surgery and post-op routine care/ locations: Admissions/SDP/PACU/01/07/ [place] [facility] ?? medications that increase the risk of bleeding including NSAIDS, ASA and Plavix to be avoided per guidelines pre and post-operatively ?? DVT/VTE prevention and signs of DVT/PE. ?? Inpatient management for VTE prevention: venodynes, ambulation, Enoxaparin 40 units BID during inpatient stay. ?? Indications for extended Enoxaparin 10 days post discharge: a. patients with BMI >60 or prior VTE OR b. 2 or more of the following: age >50, BMI >50, male gender, sleep apnea, varicose veins, venous insufficiency, history of oral contraceptive or hormone or post-menopause hormone replacement use within 30 days of [...] 10:00 AM EDT [place] [address] Catrachito Mehta MD [facility] [place] [address] Scheduled Orders Name Type Priority Associated Diagnoses Orde r Schedule UPPER GI ENDOSCOPY Procedures Routine One Ti me for 1 Occurrences starting 12/18/2013 until 12/18/2013 documented as of this encounter Visit Diagnoses Diagnosis Obesity- Primary Obesity, unspecified Atrial fibrillation Chronic anticoagulation Encounter for long-term (current) use of anticoagulants Esophageal reflux CARLOS A (obstructive sleep apnea) Obstructive sleep apnea (adult) (pediatric) documented in this encounter Care Teams Psychology Instructor Relationship Specialty Start Date End Date Manolo Castro MD [address] [place] [address] PCP - General 05/14/12 04/21/17 documented as of this encounter
--- OUTSIDE RECORDS SUMMARY | 2024-04-27 14:57 | XMS_ITS | Encounter Summary ---
Author Organization [facility] Address [address] [place] [address] Care Team Providers Care Carbon Setter Name Role Phone Dominic Restrepo MD Primary Care Provider [phone] Encounter Details Date Type Department Care Team (Late st Contact Info) Description 01/29/2020 Lab Requisition [facility] Pathology & Laboratory Medicine - [address] [address] Unknown, Provider, Social History Tobacco Use Types Packs/Day Years Used Date Smoking Tobacco: Never Assessed Sex and Gender Information Value Date Recorded Sex Assigned at Not on file Gender Identity Not on file Sexual Orientation Not on file documented as of this encounter Plan of Treatment Not on file documented as of this encounter Procedures Procedure Name Priority Date/Time Associated Diagnosis Comments ZZCOVID-19 TEST [facility] PCR Today 01/29/2020 9:47 EDT COVID-19 TESTING Routine 01/29/2020 9:47 EDT documented in this encounter Results * COVID-19 TEST [facility] PCR (01/29/2020 9:47 EDT) Swab ENTIRE NASOPHARYNX / Unknown 01/29/2020 9:47 EDT 01/29/2020 15:26 EDT Provider Unknown MICROBIOLOGY - CANDELARIA AL ORDERABLES [facility] [address] [place] [address] * COVID-19 TESTING (01/29/2020 9:47 EDT) COVID-19 rt-PCR Result Negative Negative 01/30/2020 13:57 EDT [facility] Comment: Negative results do not preclude 2019-nCoV infection and should not be used as the sole basis for treatment or other patient management decisions. Negative results must be combined with clinical observations, patient history, and epidemiological information. This test has not been FDA cleared or approved. This test has been internally validated, but independent review and determination of emergency use authorization ??(EUA) by the FDA is pending. Performed on the [facility] Performing [facility] 01/30/2020 13:57 EDT [facility] Swab ENTIRE NASOPHARYNX / Unknown 01/29/2020 9:47 EDT 01/29/2020 15:26 EDT Provider Unknown MICROBIOLOGY - GENER AL ORDERABLES [facility] [address] [place] [address] documented in this encounter Visit Diagnoses Not on filedocumented in this encounter Care Teams Carbon Setter Relationship Specialty Start Date End Date Dominic Restrepo MD [address] [place] [address] PCP - General 01/20/20 documented as of this encounter
--- OUTSIDE RECORDS SUMMARY | 2024-04-27 14:57 | XMS_ITS | Encounter Summary ---
Author Organization [facility] Address [address] [place] [address] Care Team Providers Care Advertisement Compositor Name Role Phone Unknown, Provider Primary Care Provider [phone] Encounter Details Date Type Department Care Team (Late st Contact Info) Description 11/30/2013 Results Only [facility] [phone] Karlene Bose MD [address] [place] [phone] Social History Tobacco Use Types Packs/Day Years Used Date Smoking Tobacco: Never Assessed Sex and Gender Information Value Date Recorded Sex Assigned at Not on file Gender Identity Not on file Sexual Orientation Not on file documented as of this encounter Plan of Treatment Not on file documented as of this encounter Procedures Procedure Name Priority Date/Time Associated Diagnosis Comments SURGICAL PATHOLOGY Routine 11/30/2013 10 :50 EST documented in this encounter Results * SURGICAL PATHOLOGY (11/30/2013 10:50 EST) Pathology Report: SURGICAL PATHOLOGY REPORT Reports generated via electronic interface contain original data; however they are lacking the format of the original report. Caution should be taken when reading/interpreti ng unformatted reports. Name: ? BRANDYNICOLASKATALINA BooNIS ? Accession #: ? [id number] ? : ? 1950 (Age: 62) ??M ? Collect Date: ? 11/30/2013 ? Location: ? [facility] ? Receive Date: ? 12/01/2013 ? Provider: KARLENE BOSE MD Copy to: ? Final Pathologic Diagnosis: SKIN OF HAND, LEFT DORSUM, EXCISION: - Follicular cyst, infundibular type, with superimposed features of lichen simplex chronicus. ?? Document reviewed and electronically signed by: ZOHRA BOYLE MD Report ??Date: 12/02/2013 14:49 By the signature above, the attending physician certifies that he/she has personally conducted a gross and/or microscopic examination of the described specimens and rendered or confirmed the above diagnosis. Specimen(s) Received: Dorsum left hand Clinical History: Firm flesh-colored 1.0 cm lesion Gross Description: ? Received in formalin labelled with proper patient identification (initials G, D) and left hand is an unoriented elliptical excision of alvarez-medina hairbearing skin (1.8 x 1.0 cm and is excised to a depth of 0.2 cm). There is a central circular alvarez-white granular papule that measures 0.7 x 0.7 x 0.2 cm. The margins are inked. The specimen is serially sectioned and entirely submitted as 1 and 2 central sections and 3 tips, reverse en face. Yuliet Lindsay 12/01/2013 12:18 PM End of Report [facility] 11/30/2013 10:5 0 EST 12/01/2013 10:50 EST Karlene Bose MD PATHOLOGY ORDERABLES [facility] [address] [place] [address] documented in this encounter Visit Diagnoses Not on filedocumented in this encounter Care Teams Advertisement Compositor Relationship Specialty Start Date End Date Unknown, Provider, PCP - General 02/08/10 12/02/13 documented as of this encounter
--- OUTSIDE RECORDS SUMMARY | 2024-04-27 14:57 | XMS_ITS | Encounter Summary ---
Author Organization [facility] Address [address] [place] [address] Care Team Providers Care Gun Fertilizer Name Role Phone Unknown, Provider Primary Care Provider [phone] Encounter Details Date Type Department Care Team (Late st Contact Info) Description 04/04/2012 Results Only [facility] [phone] Laura Galvez, DO [address] [place] [address] Social History Tobacco Use Types Packs/Day Years Used Date Smoking Tobacco: Never Assessed Sex and Gender Information Value Date Recorded Sex Assigned at Not on file Gender Identity Not on file Sexual Orientation Not on file documented as of this encounter Plan of Treatment Not on file documented as of this encounter Procedures Procedure Name Priority Date/Time Associated Diagnosis Comments SURGICAL PATHOLOGY Routine 04/04/2012 0:00 EDT documented in this encounter Results * SURGICAL PATHOLOGY (04/04/2012 0:00 EDT) Pathology Report: SURGICAL PATHOLOGY REPORT Reports generated via electronic interface contain original data; however they are lacking the format of the original report. Caution should be taken when reading/interpreti ng unformatted reports. Name: ? YANIV EUGENE ? Accession #: ? [id number] ? : ? 1950 (Age: 61) ??M ? Collect Date: ? 04/04/2012 ? Location: ? [facility] ? Receive Date: ? 04/04/2012 ? Provider: LAURA GALVEZ DO Copy to: NORIS SINGH MD ? Final Pathologic Diagnosis: A. ?Colon, descending, polyp, biopsies: 1. ?Tubular adenoma. B. ?Colon, sigmoid, polyp, biopsy: 1. ?Tubulovillous adenoma. C. ?Colon, sigmoid, 25 cm, polyps, biopsies: 1. ?Fragments of tubular adenomas. Document reviewed and electronically signed by: YVETTE ABBOTT MD Report ??Date: 04/08/2012 15:18 By the signature above, the attending physician certifies that he/she has personally conducted a gross and/or microscopic examination of the described specimens and rendered or confirmed the above diagnosis. Specimen(s) Received: A. ?Descending colon polyp B. ? Polyp sigmoid colon C. ? Sigmoid polyps 25 cm x2 Clinical History: ? CA screening Gross Description: ? Received in formalin labelled Giacobbe Eugene and polyp descending colon are two pink-alvarez, irregular soft tissues, 0.3 x 0.3 x 0.2 cm and 0.4 x 0.3 x 0.2 cm, submitted in toto as (A). Received in formalin labelled Giacobbe, Eugene and polyp sigmoid colon is a single, 1.2 x 0.8 x 0.7 cm, alvarez-red, polypoid tissue. ??The resection margin is inked black, the specimen is serially sectioned and entirely submitted as (B1) and (B2). Received in formalin labelled Giacobbe, Eugene and sigmoid polyp x2 25 cm are six pink-alvarez, irregular soft tissues ranging from 0.1 x 0.1 x 0.1 cm to 0.4 x 0.2 x 0.2 cm, submitted in toto as (C1) and (C2). ??([facility])/[facility] End of Report [facility] 04/04/2012 04/04/2012 7:5 5 EDT Laura Glavez DO PATHOLOGY ORDERABLES [facility] [address] [place] [address] documented in this encounter Visit Diagnoses Not on filedocumented in this encounter Care Teams Gun Fertilizer Relationship Specialty Start Date End Date Unknown, Provider, PCP - General 02/08/10 12/02/13 documented as of this encounter
--- OUTSIDE RECORDS SUMMARY | 2024-04-27 14:57 | XMS_ITS | Encounter Summary ---
Author Organization [facility] Address [address] [place] [address] Care Team Providers Care Crew Leader Gluing Name Role Phone Dominic Restrepo MD Primary Care Provider [phone] Encounter Details Date Type Department Care Team (Late st Contact Info) Description 01/31/2024 Lab Requisition [facility] Pathology & Laboratory Medicine - [facility] [address] [place] [address] Outr Resulting Lab, Provider Social History Tobacco Use Types Packs/Day Years [...] PATHOGENS BY PCR Routine 01/31/2024 11:50 EDT documented in this encounter Results * FECAL BACTERIAL PATHOGENS BY PCR (01/31/2024 11:50 EDT) Salmonella PCR Negative Negative 02/01/2024 10:42 EDT [facility] Shigella/Enteroin vasive E. coli Negative Negative 02/01/2024 10:42 EDT [facility] HN LAB CAMPYLOBACTER PCR Negative Negative 02/01/2024 10:42 EDT [facility] Shiga Toxin PCR Negative Negative 10:42 EDT [facility] Feces SPECIMEN FROM RECTUM / Unknown 01/31/2024 11:50 EDT 01/31/2024 22:07 EDT Provider Outr Resulting Lab MICROBIOLOGY - GENERAL ORDERABLES [facility] [address] [place], [place] [id number] documented in this encounter Visit Diagnoses Not on filedocumented in this encounter Care Teams Crew Leader Gluing Relationship Specialty Start Date End Date Dominic Restrepo MD [address] [place] [address] PCP - General 01/20/20 documented as of this encounter
--- OUTSIDE RECORDS SUMMARY | 2024-04-27 14:57 | XMS_ITS | Encounter Summary ---
Author Organization [facility] Address [address] [place] [address] Care Team Providers Care Wildlife Science Professor Name Role Phone Unknown, Provider Primary Care Provider Encounter Details Date Type Department Care Team (Late st Contact Info) Description 05/12/2002 Results Only [facility] [place] conversion [address] [place] [address] Adis Jordan MD [address] [place] [id number] Social History Tobacco Use Types Packs/Day Years Used Date Smoking Tobacco: Never Assessed Sex and Gender Information Value Date Recorded Sex Assigned at Not on file Gender Identity Not on file Sexual Orientation Not on file documented as of this encounter Plan of Treatment Not on file documented as of this encounter Procedures Procedure Name Priority Date/Time Associated Diagnosis Comments SURGICAL PATHOLOGY Routine 05/12/2002 0:00 EDT documented in this encounter Results * SURGICAL PATHOLOGY (05/12/2002 0:00 EDT) Pathology Report: SURGICAL PATHOLOGY REPORT Reports generated via electronic interface contain original data; however they are lacking the format of the original report. Caution should be taken when reading/interpreti ng unformatted reports. Name: ? BRANDYNICOLASKATALINA ManningNIS ? Accession #: ? [id number] ? : ? 1950 (Age: 51) ??M ? Collect Date: ? 05/12/2002 ? Location: ? [facility] ? Receive Date: ? 05/12/2002 ? Provider: GUS JORDAN MD Copy to: YURIY JIN MD ? Final Pathologic Diagnosis: ? Esophagus, lower, biopsy:1. ??GE junctional mucosa with mild, chronic inflammation. 2. ??No evidence of dysplasia, intestinal metaplasia, or malignancy. Document reviewed and electronically signed by: CHE FROST MD Report ??Date: 05/14/2002 15:32 By the signature above, the attending physician certifies that he/she has personally conducted a gross and/or microscopic examination of the described specimens and rendered or confirmed the above diagnosis. Specimen(s) Received: ? Lower esophagus bx Clinical History: ? Dysphagia, vomiting Gross Description: ? Received in Hollande's fixative labeled Giacobbe and lower esophagus bx are multiple alvarez-yellow, irregularly shaped soft tissue fragments which measure in aggregate 0.5 x 0.2 x 0.2 cm. ??They are submitted entirely in one cassette. (Dr. Dominguez)/[facility] End of Report [facility] 05/12/2002 05/12/2002 15: 28 EDT Adis Jordan MD PATHOLOGY ORDERABLES [facility] [address] [place] [address] documented in this encounter Visit Diagnoses Not on filedocumented in this encounter Care Teams Wildlife Science Professor Relationship Specialty Start Date End Date Unknown, Provider, PCP - General 02/08/10 12/02/13 documented as of this encounter
--- OUTSIDE RECORDS SUMMARY | 2024-04-27 14:57 | XMS_ITS | Encounter Summary ---
Author Organization [facility] Address [address] [place] [address] Care Team Providers Care Mental Retardation Nurse Name Role Phone Unknown, Provider Primary Care Provider Encounter Details Date Type Department Care Team (Latest Contact Info) Description 11/30/2013 9:33 EST - 11/30/2013 23:59 [facility] Hospital Encounter [address] [address] Unknown, Provider, Discharge Disposition: Home or Self Care Social History Tobacco Use Types Packs/Day Years Used Date Smoking Tobacco: Never Assessed Sex and Gender Information Value Date Recorded Sex Assigned at Not on file Gender Identity Not on file Sexual Orientation Not on file documented as of this encounter Discharge Disposition Disposition Code Departure Means Destination Home or Self [facility] documented in this encounter Plan of Treatment Not on file documented as of this encounter Visit Diagnoses Not on filedocumented in this encounter Care Teams Mental Retardation Nurse Relationship Specialty Start Date End Date Unknown, Provider, PCP - General 02/08/10 12/02/13 documented as of this encounter
--- OUTSIDE RECORDS SUMMARY | 2024-04-27 14:57 | XMS_ITS | Encounter Summary ---
Author Organization [facility] Address [address] [place] [address] Care Team Providers Care Welder Oxyhydrogen Name Role Phone Dominic Restrepo MD Primary Care Provider [phone] Encounter Details Date Type Department Care Team (Late st Contact Info) Description 10/11/2021 Lab Requisition [facility] Pathology & Laboratory Medicine - [address] [address] Outr Resulting Lab, Provider Social History Tobacco [...] Procedure Name Priority Date/Time Associated Diagnosis Comments HEPATITIS C AB W REFLEX TO HCV RNA BY PCR Routine 10/11/2021 9:25 EST documented in this encounter Results * HEPATITIS C AB W REFLEX TO HCV RNA BY PCR (10/11/2021 9:25 EST) Hep C Antibody Negative Negative 10/12/2021 10:10 EST [facility] Blood VENOUS BLOOD / Unknown 10/11/2021 9:25 EST 10/11/2021 21:22 EST Provider Outr Resulting Lab CHEMISTRY & BLOOD GAS ORDERABLES [facility] [address] [place] [address] documented in this encounter Visit Diagnoses Not on filedocumented in this encounter Care Teams Welder Oxyhydrogen Relationship Specialty Start Date End Date Dominic Restrepo MD [address] [place] [address] PCP - General 01/20/20 documented as of this encounter
--- OUTSIDE RECORDS SUMMARY | 2024-04-27 14:57 | XMS_ITS | Encounter Summary ---
Author Organization [facility] Address [address] [place] [address] Care Team Providers Care Education Courses Sales Representative Name Role Phone Dominic Restrepo MD Primary Care Provider [phone] Encounter Details Date Type Department Care Team (Late st Contact Info) Description 11/10/2020 Lab Requisition [facility] Pathology & Laboratory Medicine - [address] [address] Outr Resulting Lab, Provider Social History Tobacco [...] Comments ZZCOVID-19 TEST [facility] PCR Today 11/10/2020 9:19 EST COVID-19 TESTING Routine 11/10/2020 9:19 EST documented in this encounter Results * COVID-19 TEST [facility] PCR (11/10/2020 9:19 EST) Swab ENTIRE NASOPHARYNX / Unknown 11/10/2020 9:19 EST 11/10/2020 18:00 EST Provider Outr Resulting Lab MICROBIOLOGY - GENERAL ORDERABLES [facility] [address] [place] [address] * COVID-19 TESTING (11/10/2020 9:19 EST) COVID-19 rt-PCR Result Negative Negative 11/11/2020 15:24 EST [facility] Comment: This test has not been FDA cleared or approved. This test has been authorized by FDA under an EUA for use by authorized laboratories. This test has been authorized only for detection of nucleic acid from 2019-nCoV, not for any other viruses or pathogens. This test is only authorized for the duration of the declaration that circumstances exist justifying the authorization of emergency use of in vitro diagnostic tests for detection and/or diagnosis of 2019-nCoV under section 564(b)(1) of Act, 21 U.S.C ?? 360bbb-3(b) (1), unless the authorization is terminated or revoked sooner. Negative results do not preclude 2019-nCoV infection and should not be used as the sole basis for treatment or other patient management decisions. Negative results must be combined with clinical observations, patient history, and epidemiological information. This test was developed and its performance characteristics determined by [facility]. It has not been cleared or approved by the US Food and Drug Administration. FDA does not require this test to go through premarket FDA review. This test is used for clinical purposes. It should not be regarded as investigational or for research. This laboratory is certified under the Clinical Laboratory Improvement Amendments (CLIA) as qualified to perform high complexity clinical laboratory testing. This test is based on the [facility] COVID-19 Emergency Use Authorization (EUA) assay, with minor modification as defined by the FDA Performed on the IMNo 7 Flex RT-PCR System. Performing Lab [facility] 11/11/2020 15:24 EST [facility] Swab 11/10/2020 9:19 EST 11/10/2020 18:00 EST Provider Outr Resulting Lab MICROBIOLOGY - GENERAL ORDERABLES [facility] [address] [place] [address] documented in this encounter Visit Diagnoses Not on filedocumented in this encounter Care Teams Education Courses Sales Representative Relationship Specialty Start Date End Date Dominic Restrepo MD [address] [place] [address] PCP - General 01/20/20 documented as of this encounter
--- OUTSIDE RECORDS SUMMARY | 2024-04-27 14:57 | XMS_ITS | Encounter Summary ---
Author Organization [facility] Address [address] [place] [address] Care Team Providers Care Net Coordinator Name Role Phone Dominic Restrepo MD Primary Care Provider [phone] Encounter Details Date Type Department Care Team (Late st Contact Info) Description 05/06/2020 Lab Requisition [facility] Pathology & Laboratory Medicine - [facility] [address] [place] [address] Outr Resulting Lab, Provider Social History Tobacco [...] Procedure Name Priority Date/Time Associated Diagnosis Comments DO NOT ORDER STANDALONE - [facility] COVID TEST Today 05/06/2020 10:29 EDT COVID-19 TESTING Routine 05/06/2020 10:2 9 EDT documented in this encounter Results * DO NOT ORDER STANDALONE - [facility] COVID TEST (05/06/2020 10:29 EDT) COVID-19 rt-PCR Result NEGATIVE Negative 05/07/2020 22:09 EDT [facility] Comment: 2019-novel Coronavirus (2019-nCoV) not detected by the qRT-PCR assay. Consider testing for other respiratory viruses or re-collecting for 2019-nCoV testing. Note: Optimum timing for peak viral levels during infections caused by 2019-nCoV have not been determined. Collection of multiple specimens from the same patient may be necessary to detect the virus. Limitations Positive results are indicative of active infection with SARS-CoV-2 but do not rule out bacterial infection or co-infection with other viruses. The agent detected may not be the definite cause of disease. In addition, detection of viral RNA may not indicate the presence of infectious virus or that SARS-CoV-2 is the causative agent for clinical symptoms. Negative results do not preclude SARS-CoV-2 infection and should not be used as the sole basis for patient management decisions. Negative results must be combined with clinical observations, patient history, and epidemiological information. False negative results may also occur if amplification inhibitors are present in the specimen or if inadequate numbers of organisms are present in the specimen. Optimum specimen types and timing for peak viral levels during infections caused by SARS-CoV-2 have not been fully determined. Collection of multiple specimens (types and time points) from the same patient may be necessary to detect the virus. The test was validated for use with upper respiratory specimens obtained via nasopharyngeal or oropharyngeal swabs in VTM, UTM, M4, M5, M6, saline, and MTM media. The performance of this test has not been established for other specimens. Specimens collected using other FDA recommended Specimen Collection Materials listed in the FDA COVID-19 Diagnostic Technologies communication (December 31, 2019) are processed with the caveat that they were not all validated for use with this test and the result must be interpreted in this context. Furthermore, a false negative results may occur if a specimen is improperly collected, transported or handled. If the virus mutates in the RT-PCR target region, SARS-CoV-2 may not be detected or may be detected less predictably. Inhibitors or other types of interference may produce a false negative result. An interference study evaluating the effect of common cold medications was not performed. This test is not FDA-cleared but its performance characteristics were established by our CLIA-certified, CAP-accredited, high complexity laboratory in accordance with CLIA regulations, [employer] (CAP) guidelines (Dec 24, 2019), and FDA guidance (Dec 05, 2019). This test is only for use under the Food and Drug Administration's Emergency Use Authorization. Swab ENTIRE NASOPHARYNX / Unknown 05/06/2020 10:29 EDT 05/06/2020 15:55 EDT Provider Outr Resulting Lab MICROBIOLOGY - GENERAL ORDERABLES [facility] [place], [place] * COVID-19 TESTING (05/06/2020 10:29 EDT) COVID-19 rt-PCR Result NEGATIVE Negative 05/08/2020 0:11 EDT [facility] Comment: 2019-novel Coronavirus (2019-nCoV) not detected by the qRT-PCR assay. Consider testing for other respiratory viruses or re-collecting for 2019-nCoV testing. Note: Optimum timing for peak viral levels during infections caused by 2019-nCoV have not been determined. Collection of multiple specimens from the same patient may be necessary to detect the virus. Limitations Positive results are indicative of active infection with SARS-CoV-2 but do not rule out bacterial infection or co-infection with other viruses. The agent detected may not be the definite cause of disease. In addition, detection of viral RNA may not indicate the presence of infectious virus or that SARS-CoV-2 is the causative agent for clinical symptoms. Negative results do not preclude SARS-CoV-2 infection and should not be used as the sole basis for patient management decisions. Negative results must be combined with clinical observations, patient history, and epidemiological information. False negative results may also occur if amplification inhibitors are present in the specimen or if inadequate numbers of organisms are present in the specimen. Optimum specimen types and timing for peak viral levels during infections caused by SARS-CoV-2 have not been fully determined. Collection of multiple specimens (types and time points) from the same patient may be necessary to detect the virus. The test was validated for use with upper respiratory specimens obtained via nasopharyngeal or oropharyngeal swabs in VTM, UTM, M4, M5, M6, saline, and MTM media. The performance of this test has not been established for other specimens. Specimens collected using other FDA recommended Specimen Collection Materials listed in the FDA COVID-19 [employer] communication (December 31, 2019) are processed with the caveat that they were not all validated for use with this test and the result must be interpreted in this context. Furthermore, a false negative results may occur if a specimen is improperly collected, transported or handled. If the virus mutates in the RT-PCR target region, SARS-CoV-2 may not be detected or may be detected less predictably. Inhibitors or other types of interference may produce a false negative result. An interference study evaluating the effect of common cold medications was not performed. This test is not FDA-cleared but its performance characteristics were established by our CLIA-certified, CAP-accredited, high complexity laboratory in accordance with CLIA regulations, College [employer] (CAP) guidelines (Dec 24, 2019), and FDA guidance (Dec 05, 2019). This test is only for use under the Food and Drug Administration's Emergency Use Authorization. Performing Lab [facility] 05/08/2020 0:11 EDT [facility] Swab 05/06/2020 10:2 9 EDT 05/06/2020 15:55 EDT Provider Outr Resulting Lab MICROBIOLOGY - GENERAL ORDERABLES [facility] [address] [place] [address] [facility] [place], [place] documented in this encounter Visit Diagnoses Not on filedocumented in this encounter Care Teams Net Coordinator Relationship Specialty Start Date End Date Dominic Restrepo MD [address] [place] [address] PCP - General 01/20/20 documented as of this encounter
--- OUTSIDE RECORDS SUMMARY | 2024-04-27 14:57 | XMS_ITS | Encounter Summary ---
Author Organization [facility] Address [address] [place] [address] Care Team Providers Care Community Health Outreach Worker Name Role Phone Dominic Restrepo MD Primary Care Provider [phone] Encounter Details Date Type Department Care Team (Late st Contact Info) Description 03/28/2020 Lab Requisition [facility] Pathology & Laboratory Medicine - [address] [address] Lewis Henderson MD [address] [place] [address] [place], [place] [id number] Encounter for other general examination Social History Tobacco Use Types Packs/Day Years Used Date Smoking Tobacco: Never Assessed Sex and Gender Information Value Date Recorded Sex Assigned at Not on file Gender Identity Not on file Sexual Orientation Not on file documented as of this encounter Plan of Treatment Not on file documented as of this encounter Procedures Procedure Name Priority Date/Time Associated Diagnosis Comments SURGICAL PATHOLOGY Today 03/28/2020 10 :27 EDT Encounter for other general examination documented in this encounter Results * SURGICAL PATHOLOGY (03/28/2020 10:27 EDT) Final Diagnosis A. COLON, ASCENDING, POLYP, BIOPSY: - Fragments of sessile serrated adenoma with cytologic dysplasia. B. COLON, TRANSVERSE, POLYP, BIOPSY: - Colonic mucosa with prominent lymphoid aggregate. C. 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 D. COLON, DISTAL SIGMOID, POLYPS, BIOPSY: - Fragments of tubular adenoma(s). [facility]2020 [facility] Attestation By the signature below, the attending physician certifies that they have 1) personally conducted a gross and/or microscopic examination of the described specimen(s), and/or personally interpreted the results of laboratory testing of the described specimen(s), and 2) personally rendered or confirmed the above diagnosis. 03/29/2020 13:23 [facility] at 1322 Clinical History H/O colon polyps 03/29/2020 13:23 [facility] Gross Description A. Received in formalin labelled with proper patient identification (initials G, D) and ascending colon polyp are 2 fragments of alvarez soft tissue (0.2 x 0.2 x 0.2 cm and 0.4 x 0.4 x 0.3 cm). The specimen is entirely submitted in A1. B. Received in formalin labelled with proper patient identification (initials G, D) and transverse colon polyp is a single fragment of pink-alvarez soft tissue (0.2 x 0.2 x 0.2 cm). The specimen is entirely submitted in B1. C. Received in formalin labelled with proper patient identification (initials G, D) and sigmoid polyp are 4 fragments of pink-alvarez soft tissue (ranging from 0.2 cm to 0.6 cm in greatest dimension). The specimen is entirely submitted in C1-C2. D. Received in formalin labelled with proper patient identification (initials G, D) and distal sigmoid polyps x2 are 3 fragments of pink-alvarez soft tissue (ranging from 0.2 cm to 0.4 cm in greatest dimension). The specimen is entirely submitted in D1. Vanessa Sam 03/28/2020 16:30 03/29/2020 13:23 [facility] Scanned Images 03/29/2020 13:23 [facility] Tissue ENTIRE SIGMOID COLON / Unknown 03/28/2020 10:27 EDT 03/28/2020 16:06 EDT Tissue specimen (specimen) TRANSVERSE COLON STRUCTURE / Unknown 03/28/2020 10:27 EDT 03/28/2020 16:06 EDT Tissue specimen (specimen) SIGMOID COLON STRUCTURE / Unknown 03/28/2020 10:27 EDT 03/28/2020 16:06 EDT Tissue specimen (specimen) SIGMOID COLON STRUCTURE / Unknown 03/28/2020 10:27 EDT 03/28/2020 16:06 EDT Lewis Henderson MD PATHOLOGY ORDERA [facility] [address] [place] [address] documented in this encounter Visit Diagnoses Diagnosis Encounter for other general examination documented in this encounter Care Teams Community Health Outreach Worker Relationship Specialty Start Date End Date Dominic Restrepo MD [address] [place] [id number] PCP - General 01/20/20 documented as of this encounter
--- OUTSIDE RECORDS SUMMARY | 2024-04-27 14:57 | XMS_ITS | Encounter Summary ---
Author Organization [facility] Address [address] [place] [address] Care Team Providers Care Bead Flipper Name Role Phone Dominic Restrepo MD Primary Care Provider [phone] [phone] Encounter Details Date Type Department Care Team (Late st Contact Info) Description 01/21/2020 Lab Requisition [facility] Pathology & Laboratory Medicine - [address] [address] Jolly Perry, CCNA [address] [place] [address] [place] [address] Encounter for other general examination Social History [...] Procedure Name Priority Date/Time Associated Diagnosis Comments NON POOL SERVICER/FNA CYTOLOGY Today 01/20/2020 9:30 EDT Encounter for other general examination documented in this encounter Results * NON POOL SERVICER/FNA CYTOLOGY (01/20/2020 9:30 EDT) Final Diagnosis URINE, VOIDED, CYTOLOGIC EVALUATION: - Rare atypical urothelial cells present. 01/21/2020 17:[address] [facility] at 1740 Diagnosis Comment Cytologic evaluation reveals rare atypical urothelial cells with nuclear enlargement and superimposed degenerative changes. Acute inflammation and red blood cells are also present. The scant and degenerative nature of these atypical urothelial cells precludes further characterization. Site Safety Coordinator slides of this case were reviewed at the intradepartmental consultation conference. 01/21/2020 17:[address] [facility] Clinical History Gross hematuria 01/21/2020 17:[address] [facility] Attestation By the signature below, the attending physician certifies that they have personally conducted a gross and/or microscopic examination of the described specimens and rendered or confirmed the above diagnosis. 01/21/2020 17:[address] [facility] at 1740 Gross Description 60 ccs of clear yellow fluid (with and additional 60 ccs of Cytolyt added) were received and processed by selective cellular enhancement technique. 01/21/2020 17:[address] [facility] Scanned Images 01/21/2020 17:[address] [facility] Urine VOIDED URINE SPECIMEN / Unknown 01/20/2020 9:30 EDT 01/21/2020 8:10 EDT Jolly Perry NP PATHOLOGY ORDERABLES [facility] [address] [place] [address] documented in this encounter Visit Diagnoses Diagnosis Encounter for other general examination documented in this encounter Care Teams Bead Flipper Relationship Specialty Start Date End Date Dominic Restrepo MD [address] [place] [address] PCP - General 01/20/20 documented as of this encounter
--- OUTSIDE RECORDS SUMMARY | 2024-04-27 14:57 | XMS_ITS | Encounter Summary ---
Author Organization [facility] Address [address] [place] [address] Care Team Providers Care Rail Car Welder Name Role Phone Dominic Restrepo MD Primary Care Provider [phone] [phone] Encounter Details Date Type Department Care Team (Late st Contact Info) Description 05/09/2020 Lab Requisition [facility] Pathology & Laboratory Medicine - [address] [address] Lewis Henderson MD [address] [place] [address] [place], [place] [address] Encounter for other general examination Social History [...] Date/Time Associated Diagnosis Comments SURGICAL PATHOLOGY Today 05/09/2020 12 :30 EDT Encounter for other general examination documented in this encounter Results * SURGICAL PATHOLOGY (05/09/2020 12:30 EDT) Final Diagnosis A. 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 See comment. - AJCC 8th Edition Staging: pTis, pNx. See synoptic report. - Diverticular disease. - Deeper sections x3 examined (A3, A4). 05/13/2020 16:04 [facility] Diagnosis Comment Immunoperoxidase stains were performed on this case to further characterize the lesion. ANTIBODY(CLONE)(BLO CK):RESULT Keratin AE1-AE3 (AE1-AE3, [employer]ocare) (A4): Highlights intramucosal adenocarcinoma. NOTE: One or more of the reagents used in immunoperoxidase testing in this case may not have been cleared or approved by the U.S. Food and Drug Administration (FDA). The FDA has determined that such clearance or approval is not necessary. These tests are used for clinical purposes. They should not be regarded as investigational or for research. These reagents' performance characteristics have been determined by [facility] and/or by the referring laboratory. The positive and negative controls worked appropriately. If immunoperoxidase staining has been performed on alcohol fixed cytology specimens, which has not been fully validated, the assays should be interpreted with caution and correlated with clinical data. This laboratory is certified under the Clinical Laboratory Improvement Amendments of 1988 (CLIA-88) as qualified to perform high complexity clinical laboratory testing. Bull Fiddle Player slides of this case were reviewed at the intradepartmental consultation conference (NF, ). 05/13/2020 16:04 [facility] Attestation There was significant resident/fellow involvement in the diagnostic evaluation of this case. By the signature below, the attending physician certifies that they have personally conducted a gross and/or microscopic examination of the described specimens and rendered or confirmed the above diagnosis. 05/13/2020 16:04 [facility] at 1604 Synoptic COLON AND RECTUM: Resection, Including Transanal Disk Excision of Rectal Neoplasms ??(COLON AND RECTUM: RESECTION - All Specimens) 8th Edition - Protocol posted: 12/03/2018 SPECIMEN ?? Procedure: ?Sigmoidectomy TUMOR ?? Tumor Site: ?Sigmoid colon ?? Histologic Type: ?Adenocarcinoma ?? Histologic Grade: ?Not applicable ?? Tumor Size: ?Cannot be determined: Microscopic foci ?? Tumor Deposits: ?Not identified ?? Tumor Extension: ?Tumor invades lamina propria / muscularis mucosae (intramucosal carcinoma) ?? Macroscopic Tumor Perforation: ?Not identified ?? Lymphovascular Invasion: ?Not identified ?? Perineural Invasion: ?Not identified ?? Tumor Budding: ?Cannot be determined ?? Type of Polyp in Which Invasive Carcinoma Arose: ?Tubulovillous adenoma ?? Treatment Effect: ?No known presurgical therapy MARGINS ?? Margins: ?All margins are uninvolved by invasive carcinoma, high-grade dysplasia, intramucosal adenocarcinoma, and adenoma ? Margins Examined: ?Proximal ? Margins Examined: ?Distal ? Margins Examined: ?Radial or Mesenteric ? Distance of Invasive Carcinoma from Closest Margin: ?2.5 cm ? Closest Margin: ?Radial or Mesenteric LYMPH NODES ?? Regional Lymph Nodes: ?No lymph nodes submitted or found PATHOLOGIC STAGE CLASSIFICATION (pTNM, AJCC 8th Edition) ?? Primary Tumor (pT): ?pTis ?? Regional Lymph Nodes (pN): ?pNX ADDITIONAL FINDINGS ?? Additional Pathologic Findings: ?Diverticulosis 05/13/2020 16:04 [facility] Clinical History Tubulovillous adenoma with high grade dysplasia 05/13/2020 16:04 [facility] Gross Description A. A. Received in formalin labelled with proper patient identification (initials G, D) and sigmoid colon is an oriented segment of sigmoid colon (6.3 cm in length x 4.1 cm in luminal circumference), received closed, and with a moderate amount of attached unremarkable mesentery. There is exophytic and friable tumor in the proximal sigmoid colon (1.1 x 0.7 x 0.3 cm). The serosa at the tumor is unremarkable. Sectioning the tumor shows it remains superficial. The tumor is situated 2.6 cm from the proximal margin, 4.0 cm from the distal margin, and 2.5 cm from the radial/mesenteric margin. A tattoo site is identified. The mucosa immediately adjacent to the lesion appears edematous but otherwise normal with the usual folds. The uninvolved colon mucosa is pink-alvarez with the usual folds and the average wall thickness is 0.5 cm. The serosa is pink-alvarez and smooth. INK BRAND Blue - serosa over the mass Black - radial margin BLOCK BRAND A1-A2- proximal surgical margin A3-A4- lesion to nearest radial and serosal margins A5- Colon immediately adjacent to lesion A6- Colon with diverticulum A7- Uninvolved colon A8- Distal surgical margin 05/13/2020 16:04 EDT [facility] Resident/Fell ow: Wally Herron MD 05/13/2020 16:04 EDT [facility] Performing Lab [facility] 05/13/2020 16:04 EDT [facility] Scanned Images 05/13/2020 16:04 EDT [facility] Tissue ENTIRE SIGMOID COLON / Unknown 05/09/2020 12:30 EDT 05/09/2020 23:38 EDT Lewis Henderson MD PATHOLOGY ORDERA ALYSHA [facility] [address] [place] [address] documented in this encounter Visit Diagnoses Diagnosis Encounter for other general examination documented in this encounter Care Teams Rail Car Welder Relationship Specialty Start Date End Date Dominic Restrepo MD [address] [place] [id number] PCP - General 01/20/20 documented as of this encounter
--- OUTSIDE RECORDS SUMMARY | 2024-04-27 14:57 | XMS_ITS | Encounter Summary ---
Author Organization [facility] Address [address] [place] [address] Care Team Providers Care Medical Office Coordinator Name Role Phone Unknown, Provider Primary Care Provider Encounter Details Date Type Department Care Team (Late st Contact Info) Description 06/01/2013 Results Only [facility] Laboratory Services - [facility] ([facility] [address] [place], [place] [address] Manolo Castro MD [address] [facility] [address] [place], [place] [id number] Social History Tobacco Use Types Packs/Day Years Used Date Smoking Tobacco: Never Assessed Sex and Gender Information Value Date Recorded Sex Assigned at Not on file Gender Identity Not on file Sexual Orientation Not on file documented as of this encounter Plan of Treatment Not on file documented as of this encounter Procedures Procedure Name Priority Date/Time Associated Diagnosis Comments SURGICAL PATHOLOGY Routine 06/01/2013 9:30 EDT documented in this encounter Results * SURGICAL PATHOLOGY (06/01/2013 9:30 EDT) Pathology Report: SURGICAL PATHOLOGY REPORT Reports generated via electronic interface contain original data; however they are lacking the format of the original report. Caution should be taken when reading/interpreting unformatted reports. Name: ? BRANDYNICOLASKATALINA BooNIS ? Accession #: ? [id number] ? : ? 1950 (Age: 62) ??M ? Collect Date: ? 06/01/2013 ? Location: ? [facility] ? Receive Date: ? 06/02/2013 ? Provider: MANOLO CASTRO MD Copy to: ? Final Pathologic Diagnosis: SKIN OF HAND, LEFT, PUNCH BIOPSY: - Irregular epidermal hyperplasia with hyperkeratosis. ??See microscopic and comment. 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 ??(Dr. Boyle)/[facility] Microscopic Description: The stratum corneum is thickened by orthohyperkeratosis with foci of parakeratosis and scale crust. ??The epidermis shows marked irregular hyperplasia with elongate and thickened rete ridges. ??The keratinocytes show mild reactive changes with an accentuated granular layer. ??The dermal papillae are widened by thick bundles of collagen oriented in a vertical array. There is mild chronic inflammation. ??(Dr. Boyle)/[facility] Document reviewed and electronically signed by: ZOHRA BOYLE MD Report ??Date: 06/03/2013 13:29 By the signature above, the attending physician certifies that he/she has personally conducted a gross and/or microscopic examination of the described specimens and rendered or confirmed the above diagnosis. Specimen(s) Received: Punch biopsy of hyperkeratotic lesion L hand, probable verruca Clinical History: Painful lesion dorsum of hand for 1 month Gross Description: ? Received in formalin labelled with proper patient identification (initials G, D) and punch biopsy L hand is a punch biopsy of davila-white granular skin (0.3 cm in diameter and 0.2 cm in thickness). Submitted intact in 1. Yuliet Lindsay 06/02/2013 12:17 PM End of Report [facility] ERA[facility] 06/01/2013 9:30 EDT 06/02/2013 9:30 EDT Manolo Castro MD PATHOLOGY ORDERABLES [facility] [address] [place] [address] documented in this encounter Visit Diagnoses Not on filedocumented in this encounter Care Teams Medical Office Coordinator Relationship Specialty Start Date End Date Unknown, Provider, PCP - General 02/08/10 12/02/13 documented as of this encounter
--- OUTSIDE RECORDS SUMMARY | 2024-04-27 14:57 | XMS_ITS | Encounter Summary ---
Author Organization [facility] Address [address] [place] [address] Care Team Providers Care Magisterial District Judge Name Role Phone Dominic Restrepo MD Primary Care Provider [phone] [phone] Encounter Details Date Type Department Care Team (Late st Contact Info) Description 09/19/2020 Lab Requisition [facility] Pathology & Laboratory Medicine - [facility] [address] [place] [address] Tamir Osuna MD [address] [place] [id number] Encounter for other general examination Social [...] Name Priority Date/Time Associated Diagnosis Comments NON PHOTOGRAPHER APPRENTICE/FNA CYTOLOGY Today 09/16/2020 11:15 EST Encounter for other general examination documented in this encounter Results * NON PHOTOGRAPHER APPRENTICE/FNA CYTOLOGY (09/16/2020 11:15 EST) Final Diagnosis URINE, VOIDED, CYTOLOGIC EVALUATION: - Negative for high grade urothelial carcinoma. - Acute inflammation and bacteria noted. 09/20/2020 9:[address] [facility] Attestation There was significant resident/fellow involvement in the diagnostic evaluation of this case. By the signature below, the attending physician certifies that they have personally conducted a gross and/or microscopic examination of the described specimens and rendered or confirmed the above diagnosis. 09/20/2020 9:11 [facility] at 0911 Clinical History Bladder cancer 09/20/2020 9:11 [facility] Gross Description A. 120ccs of clear yellow fluid, of which 60ccs are composed of fixative, were received and processed by selective cellular enhancement technique. 09/20/2020 9:11 [facility] Resident/Dm w: Shilpi Velazco MD 09/20/2020 9:11 [facility] Performing Lab [facility] 09/20/2020 9:11 [facility] Scanned Images 09/20/2020 9:11 [facility] Urine VOIDED URINE SPECIMEN / Unknown 09/16/2020 11:15 EST 09/19/2020 6:38 EST Tamir Osuna MD PATHOLOGY ORDERAB LES [facility] [address] [place] [address] documented in this encounter Visit Diagnoses Diagnosis Encounter for other general examination documented in this encounter Care Teams Magisterial District Judge Relationship Specialty Start Date End Date Dominic Restrepo MD [address] [place] [address] PCP - General 01/20/20 documented as of this encounter
--- OUTSIDE RECORDS SUMMARY | 2024-04-27 14:57 | XMS_ITS | Encounter Summary ---
Author Organization [facility] Address [address] [place] [address] Care Team Providers Care Supervisor Metal Furniture Assembly Name Role Phone Dominic Restrepo MD Primary Care Provider [phone] [phone] Encounter Details Date Type Department Care Team (Late st Contact Info) Description 01/04/2021 Lab Requisition [facility] Pathology & Laboratory Medicine - [address] [address] Lewis Henderson MD [address] [place] [address] [place], [place] [id number] Encounter for other general examination Social History [...] Date/Time Associated Diagnosis Comments SURGICAL PATHOLOGY Today 01/04/2021 8: 57 EDT Encounter for other general examination documented in this encounter Results * SURGICAL PATHOLOGY (01/04/2021 8:57 EDT) Final Diagnosis A. 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 - Cholelithiasis. 01/09/2021 11:27 EDT [facility] Attestation By the signature below, the attending physician certifies that they have 1) personally conducted a gross and/or microscopic examination of the described specimen(s), and/or personally interpreted the results of laboratory testing of the described specimen(s), and 2) personally rendered or confirmed the above diagnosis. 01/09/2021 11:27 EDT [facility] at 1127 Clinical History Chronic cholecystitis with calculus 01/09/2021 11:27 EDT [facility] Gross Description A. Received in formalin labelled with proper patient identification (initials G, D) and gallbladder + stones is a previously disrupted gallbladder (7.2 x 3.8 x 3.0 cm). A cystic duct lymph node is not identified and the cystic duct is not discernible. The serosa is alvarez-purple and hemorrhagic. The mucosa is ragged, dark purple and hemorrhagic and the wall ranges from 0.6 cm to 1.5 cm in thickness. An aggregate of black multifaceted choleliths (2.6 x 2.4 x 0.7 cm) is present. Three branch service representative sections and the en face cystic duct margin are submitted in A1 and A2. KAY BRIONES(ASCP) 01/05/2021 9:18 01/09/2021 11:27 EDT [facility] Performing Lab [facility] 01/09/2021 11:27 T [facility] Scanned Images 01/09/2021 11:27 T [facility] Tissue ENTIRE GALLBLADDER / Unknown 01/04/2021 8:57 EDT 01/04/2021 15:26 EDT Lewis Henderson MD PATHOLOGY ORDERA ALYSHA [facility] [address] [place] [address] documented in this encounter Visit Diagnoses Diagnosis Encounter for other general examination documented in this encounter Care Teams Supervisor Metal Furniture Assembly Relationship Specialty Start Date End Date Dominic Restrepo MD [address] [place] [address] PCP - General 01/20/20 documented as of this encounter
--- OUTSIDE RECORDS SUMMARY | 2024-04-27 14:57 | XMS_ITS | Encounter Summary ---
Author Organization [facility] Address [address] [place] [address] Care Team Providers Care Wide Piece Goods Inspector Name Role Phone Dominic Restrepo MD Primary Care Provider +1 [phone] Encounter Details Date Type Department Care Team (Late st Contact Info) Description 03/03/2021 Lab Requisition [facility] Pathology & Laboratory Medicine - [facility] [address] [place] [address] Tamir Osuna MD [address] [place] [address] [place] [address] Encounter for other general examination [...] Name Priority Date/Time Associated Diagnosis Comments NON EXCHANGE ENGINEER/FNA CYTOLOGY Today 03/02/2021 8:47 EDT Encounter for other general examination documented in this encounter Results * NON EXCHANGE ENGINEER/FNA CYTOLOGY (03/02/2021 8:47 EDT) Final Diagnosis URINE, CATHETERIZED, CYTOLOGIC EVALUATION: - Negative for high grade urothelial carcinoma. 03/03/2021 14:35 EDT [facility] Attestation By the signature below, the attending physician certifies that they have personally conducted a gross and/or microscopic examination of the described specimens and rendered or confirmed the above diagnosis. 03/03/2021 14:35 EDT [facility] at 1435 Clinical History Bladder cancer 03/03/2021 14:35 EDT [facility] Gross Description A. 60ccs of clear yellow fluid, of which 60ccs are composed of fixative, were received and processed by selective cellular enhancement technique. 03/03/2021 14:35 EDT [facility] Performing Lab [facility] 03/03/2021 14:35 EDT [facility] Scanned Images 03/03/2021 14:35 [facility] Fluid URINE SPECIMEN COLLECTION, CATHETERIZED / Unknown 03/02/2021 8:47 EDT 03/03/2021 7:16 EDT Tamir Osuna MD PATHOLOGY ORDERAB LES Performing Organization Address City/State/[facility] Co de Phone Number [facility] [address] [place] [address] documented in this encounter Visit Diagnoses Diagnosis Encounter for other general examination documented in this encounter Care Teams Wide Piece Goods Inspector Relationship Specialty Start Date End Date Dominic Restrepo MD [address] [place] [id number] PCP - General 01/20/20 documented as of this encounter
--- OUTSIDE RECORDS SUMMARY | 2024-04-27 14:57 | XMS_ITS | Patient Health Record ---
Author Organization [facility] Address [address] [place] [address] Care Team Providers Care Reliner Name Role Phone EDILBERTO HEARN Primary Care Provider Unavail able Narciso Gomez [phone] REASON FOR REFERRAL No Information PLAN OF TREATMENT No Information Insurance Providers Payer Name Payer Address Payer Phone Subscriber Number Group Number Insured Name Patient Relationship to Insured Coverage Start Date Coverage End Date [employer] MEDICARE COMPLETE [address] [address] [place] [address] [id number] MELANIE PURVIS Self - patient is the insured SELF [place] [address] MELANIE PURVIS Self - patient is the insured
--- OUTSIDE RECORDS SUMMARY | 2024-04-27 14:57 | XMS_ITS | Encounter Summary ---
Author Organization [facility] Address [address] [place] [address] Care Team Providers Care Director Utilization Management Name Role Phone Dominic Restrepo MD Primary Care Provider [phone] [phone] Encounter Details Date Type Department Care Team (Late st Contact Info) Description 10/11/2021 Lab Requisition [facility] Pathology & Laboratory Medicine - [facility] [address] [place], [place] [address] Outr Resulting Lab, Provider Social History Tobacco [...] Procedure Name Priority Date/Time Associated Diagnosis Comments HIV 1/2 ANTIGEN AND ANTIBODY, 4TH GENERATION Routine 10/11/2021 9:25 EST documented in this encounter Results * HIV 1/2 ANTIGEN AND ANTIBODY, 4TH GENERATION (10/11/2021 9:25 EST) HIV 1 and 2 Antibody/p24 Antigen, 4th Generation Negative Negative 10/12/2021 10:21 EST [facility] Comment:If acute HIV-1 infec tion is suspected in a high risk patient, submit plasma specimen for HIV-1 RNA quantitation test. Blood VENOUS BLOOD / Unknown 10/11/2021 9:25 EST 10/11/2021 21:22 EST Narrative [facility] - 10/12/2021 10:21 EST Fourth Generation assay performed on the Siemens Centaur XPT. Provider Outr Resulting Lab IMMUNOLOGY A ND SEROLOGY ORDERABLES [facility] [address] [place] [address] documented in this encounter Visit Diagnoses Not on filedocumented in this encounter Care Teams Director Utilization Management Relationship Specialty Start Date End Date Dominic Restrepo MD [address] [place] [address] PCP - General 01/20/20 documented as of this encounter
--- OUTSIDE RECORDS SUMMARY | 2024-04-27 14:57 | XMS_ITS | Encounter Summary ---
Author Organization [facility] Address [address] [place] [address] Care Team Providers Care Cardiac Catheterization Technician Name Role Phone Dominic Restrepo MD Primary Care Provider [phone] Encounter Details Date Type Department Care Team (Late st Contact Info) Description 02/04/2020 Lab Requisition [facility] Pathology & Laboratory Medicine - [address] [address] Tamir Osuna MD [address] [place] [id number] Encounter for other general examination Social [...] Date/Time Associated Diagnosis Comments SURGICAL PATHOLOGY Today 02/04/2020 11 :14 EDT Encounter for other general examination documented in this encounter Results * SURGICAL PATHOLOGY (02/04/2020 11:14 EDT) Final Diagnosis A. BLADDER, TURBT: - High grade papillary urothelial carcinoma, non-invasive. - Features suggestive of inverted growth. - Muscularis propria present. -See comment and synoptic report. 02/10/2020 19:43 EDT [facility] at 1943 Attestation By the signature below, the attending physician certifies that they have 1) personally conducted a gross and/or microscopic examination of the described specimen(s), and/or personally interpreted the results of laboratory testing of the described specimen(s), and 2) personally rendered or confirmed the above diagnosis. 02/10/2020 19:43 [facility] at 1943 Diagnosis Comment A HMWK stain shows no evidence of invasion into the lamina propria. Hot Repairman slides of this case were reviewed at the intradepartmental consultation conference. Immunoperoxidase stains were performed on this case to further characterize the lesion. ANTIBODY(CLONE)(BLO CK):RESULT Keratin 34BE12 (34BE12, [place]derlin) (A2): negative for invasion into lamina propria. NOTE: One or more of the reagents [...] performance characteristics have been determined by [facility] and/or by the referring laboratory. The positive and negative controls worked appropriately. If immunoperoxidase staining has been performed on alcohol fixed cytology specimens, which has not been fully validated, the assays should be interpreted with caution and correlated with clinical data. This laboratory is certified under the Clinical Laboratory Improvement Amendments of 1988 (CLIA-88) as qualified to perform high complexity clinical laboratory testing. 02/10/2020 19:43 [facility] Synoptic URINARY BLADDER: Biopsy and Transurethral Resection of Bladder Tumor (TURBT) ??(Bladder - All Specimens) 8th Edition - Protocol posted: 12/03/2018 SPECIMEN ?? Procedure: ?Transurethral resection of bladder (TURBT) TUMOR ?? Tumor Site: ?Not specified ?? Histologic Type: ?Papillary urothelial carcinoma, noninvasive ?? Histologic Grade: ?High-grade ?? Tumor Extension: ?Noninvasive papillary carcinoma ?? Tumor Configuration: ?Papillary ?? Muscularis Propria Presence: ?Muscularis propria (detrusor muscle) present ?? Lymphovascular Invasion: ?Not identified ADDITIONAL FINDINGS ?? Associated Epithelial Lesions: ?None identified 02/10/2020 19:43 EDT [facility] Clinical History Bladder tumor 02/10/2020 19:43 EDT [facility] Gross Description A. Received in formalin labelled with proper patient identification (initials G, D) and bladder tumor is a 1.6 x 1.4 x 0.5 cm aggregate of medina cauterized, friable tissue fragments. Entirely submitted in A1-A3. 02/05/2020 7:48 02/10/2020 19:43 EDT [facility] Scanned Images 02/10/2020 19:43 EDT [facility] Tissue URINARY BLADDER BIOPSY SPECIMEN / Unknown 02/04/2020 11:14 EDT 02/04/2020 16:17 EDT Tamir Osuna MD PATHOLOGY ORDERAB LES [facility] [address] [place] [address] documented in this encounter Visit Diagnoses Diagnosis Encounter for other general examination documented in this encounter Care Teams Cardiac Catheterization Technician Relationship Specialty Start Date End Date Dominic Restrepo MD [address] [place] [id number] PCP - General 01/20/20 documented as of this encounter
--- OUTSIDE RECORDS SUMMARY | 2024-04-27 14:57 | XMS_ITS | Referral Summary ---
Author Organization [facility] Address [address] [place] [address] Care Team Providers Care Union Contract Representative Name Role Phone Dominci Restrepo MD Primary Care Provider [phone] Encounters Date Type Department Care Team Description 01/31/2024 Lab Requisition [facility] Pathology & Laboratory Medicine - [facility] [address] [place] [address] Outr Resulting Lab, Provider from Last 3 Months Social History Tobacco Use Types Packs/Day Years Used Date Smoking Tobacco: Never Assessed Interpersonal Safety Answer Date Record ed Physically Hurt Never 05/08/2020 Verbally Threaten Not on file 05/08/2020 Sex and Gender Information Value Date Recorded Sex Assigned at Not on file Gender Identity Not on file Sexual Orientation Not on file Plan of Treatment Not on file Procedures Procedure Name Priority Date/Time Associated Diagnosis Comments FECAL BACTERIAL PATHOGENS BY PCR Routine 01/31/2024 11:50 EDT HEPATITIS C AB W REFLEX TO HCV RNA BY PCR Routine 10/11/2021 9:25 EST from Last 3 Months or Most Recently Relevant to Health Maintenance Results * FECAL BACTERIAL PATHOGENS BY PCR (01/31/2024 11:50 EDT) Salmonella PCR Negative Negative 02/01/2024 10:42 EDT [facility] Shigella/Enteroin vasive E. coli Negative Negative 02/01/2024 10:42 EDT [facility] HN LAB CAMPYLOBACTER PCR Negative Negative 02/01/2024 10:42 EDT [facility] Shiga Toxin PCR Negative Negative 10:42 EDT [facility] Feces SPECIMEN FROM RECTUM / Unknown 01/31/2024 11:50 EDT 01/31/2024 22:07 EDT Provider Outr Resulting Lab MICROBIOLOGY - GENERAL ORDERABLES Performing Organization Address City/[facility]/ZIP Co de Phone Number [facility] [address] [place] [address] * HEPATITIS C AB W REFLEX TO HCV RNA BY PCR (10/11/2021 9:25 EST) Hep C Antibody Negative Negative 10/12/2021 10:10 EST [facility] Blood VENOUS BLOOD / Unknown 10/11/2021 9:25 EST 10/11/2021 21:22 EST Provider Outr Resulting Lab CHEMISTRY & BLOOD GAS ORDERABLES Performing Organization Address City/[facility] Co de Phone Number [facility] [address] [place] [address] from Last 3 Months or Most Recently Relevant to Health Maintenance Care Teams Union Contract Representative Relationship Specialty Start Date End Date Dominic Restrepo MD [address] [place] [address] [address] [place], [place] [id number] PCP - General 01/20/20
--- OUTSIDE RECORDS SUMMARY | 2024-04-27 14:57 | XMS_ITS | Encounter Summary ---
Author Organization [facility] Address [address] [place] [address] Care Team Providers Care Diagnostic Medical Sonographer Name Role Phone Unavailable Primary Care Provider Unavailabl e Encounter Details Date Type Department Care Team (Late st Contact Info) Description 02/07/2010 Results Only [facility] Laboratory Services - [facility] ([facility] [address] [place] [id number] Lorraine Burger MD [address] [place] [id number] Social History Tobacco Use Types Packs/Day Years Used Date Smoking Tobacco: Never Assessed Sex and Gender Information Value Date Recorded Sex Assigned at Not on file Gender Identity Not on file Sexual Orientation Not on file documented as of this encounter Plan of Treatment Not on file documented as of this encounter Procedures Procedure Name Priority Date/Time Associated Diagnosis Comments CYTOPATHOLOGY Routine 02/07/2010 0:00 EDT documented in this encounter Results * CYTOPATHOLOGY (02/07/2010 0:00 EDT) Pathology Report: CYTOPATHOLOGY REPORT ? Reports generated via electronic interface contain original data; ? however they are lacking the format of the original report. ? Caution should be taken when reading/interpreti ng unformatted reports. ? Name: ? EUGENE PURVIS ? Accession #: ? [id number] ? : ? 1950 (Age: 59) ??M ?Collect Date: ? 02/07/2010 ? Location: ? [facility] ? Receive Date: ? 02/07/2010 ? Provider: ? LORRAINE LISETH MD ? Copy to: ?BIJAL JIN MD ? CYTOLOGIC DIAGNOSIS: ? Urine, collection method not otherwise specified, cytologic evaluation: ? 1. ?Negative for malignant cells. ? 2. ? Predominantly squamous epithelial cells. ? 3. ? Acute inflammation. ? Document reviewed and electronically signed by: ? Narda Bunch MD ? Report Date: ??02/08/2010 13:46 ? By the signature above, the attending physician certifies that he/she has ? personally conducted a gross and/or microscopic examination of the described ? specimens and rendered or confirmed the above diagnosis. ? Specimen Type: ? Urine, NOS ? Clinical History: ? Urinary urgency ? Gross Description: ? One vial of CytoLyt was received and processed by selective cellular ? enhancement technique. ? End of Report ? BRENDA ERAZO 02/07/2010 02/07/2010 15: 43 EDT Lorraine Burger MD PATHOLOGY ORDERABLES [facility] [address] [place] [address] documented in this encounter Visit Diagnoses Not on filedocumented in this encounter
[2024-04-27 15:00] VITALS: BP 158/92; PULSE 97; RESP 20; TEMP 36.8; O2SAT 97
--- NOTE | 2024-04-27 15:10 | ED.GENADUL_ITS ---
Discharge Plan Disposition Patient Disposition: Home Condition: Improving Discharge Details Clinical Impression: Acute UTI Primary Care Provider: David Massey ED Provider: Bari Lara Home Meds and New Rx's Prescriptions: New cefpodoxime 200 mg tablet 200 mg PO BID 10 Days Qty: 20 0RF Rx Instructions: must administer with a meal/food No Action levetiracetam 500 mg tablet 500 mg PO BID Qty: 180 3RF metformin 1,000 mg tablet 1,000 mg PO BID atorvastatin 40 mg tablet 40 mg PO DAILY metoprolol tartrate 50 mg tablet 50 mg PO BID Eliquis 5 mg tablet 5 mg PO BID Qty: 180 3RF acetaminophen 325 mg tablet 650 mg PO Q4H PRN (DME) pen needle, diabetic [BD Ultra-Fine Claribel Pen Needle] 32 gauge x 5/32 needle See Rx Instructions .Route Rx Instructions: As directed (DME) Dexcom G7 Shut Off Worker Misc See Rx Instructions .Route Rx Instructions: As directed (DME) Dexcom G7 Sensor Device See Rx Instructions .Route Rx Instructions: As directed docusate sodium 100 mg capsule 100 mg PO BID PRN finasteride 5 mg tablet 5 mg PO DAILY lorazepam 0.5 mg tablet 0.5 mg PO QHS PRN nystatin [Nystop] 100,000 unit/gram powder 1 applic topical BID (DME) blood sugar diagnostic Strip See Rx Instructions .Route Rx Instructions: As directed (DME) lancets 33 gauge misc See Rx Instructions .Route Rx Instructions: As directed (DME) OneTouch Ultra Test Strip See Rx Instructions .Route Rx Instructions: As directed phenazopyridine 200 mg tablet 200 mg PO TID PRN Rx Instructions: for painful urination triamcinolone acetonide 0.1 % ointment 1 applic topical DAILY furosemide 20 mg tablet 20 mg PO DAILY Patient Comments: Take 1 tablet by mouth every morning Dr. Cuellar- Cardiology lisinopril 5 mg tablet 5 mg PO DAILY cefpodoxime 200 mg tablet 200 mg PO BID Qty: 14 0RF Rx Instructions: must administer with a meal/food diltiazem HCl 120 mg capsule,extended release 24hr 120 mg PO BID levothyroxine 50 mcg tablet 50 mcg PO DAILY Patient Comments: Take 1 tablet by mouth once a day Take on an empty stomach 30 minutes before breakfast or other medications Discharge Instructions Instructions: Urinary Tract Infection, Adult ED HPI General Date/Time Provider Initiated Documentation: 04/27/24 15:03 . HPI Narrative: 73-year-old male history of prior CVA, dementia, chronic indwelling Romero presents brought in by son for evaluation of UTI. Cloudy urine in bag. Possible fevers at home. Patient has no current complaints Related Data Home Medications ?Medication ?Instructions ?Recorded ?Confirmed furosemide 20 mg tablet 20 mg PO DAILY 06/01/21 04/27/24 metformin 1,000 mg tablet 1,000 mg PO BID 01/23/22 04/27/24 levothyroxine 50 mcg tablet 50 mcg PO DAILY 12/03/22 04/27/24 atorvastatin 40 mg tablet 40 mg PO DAILY 12/31/22 04/27/24 metoprolol tartrate 50 mg tablet 50 mg PO BID 04/29/23 04/27/24 apixaban 5 mg tablet (Eliquis) 5 mg PO BID #180 tabs 07/23/23 04/27/24 levetiracetam 500 mg tablet 500 mg PO BID #180 tabs 11/11/23 04/27/24 lisinopril 5 mg tablet 5 mg PO DAILY 01/28/24 04/27/24 cefpodoxime 200 mg tablet 200 mg PO BID #14 tabs 02/03/24 02/24/24 acetaminophen 325 mg tablet 650 mg PO Q4H PRN 02/21/24 04/27/24 blood sugar diagnostic 02/21/24 04/27/24 blood sugar diagnostic (OneTouch 02/21/24 04/27/24 Ultra Test strips) blood-glucose meter,continuous 02/21/24 04/27/24 (Dexcom G7 Shut Off Worker) blood-glucose sensor (Dexcom G7 02/21/24 04/27/24 Sensor device) docusate sodium 100 mg capsule 100 mg PO BID PRN 02/21/24 04/27/24 finasteride 5 mg tablet 5 mg PO DAILY 02/21/24 04/27/24 lancets 33 gauge 02/21/24 04/27/24 lorazepam 0.5 mg tablet 0.5 mg PO QHS PRN 02/21/24 04/27/24 nystatin 100,000 unit/gram topical 1 applic topical BID 02/21/24 04/27/24 powder (Nystop) pen needle, diabetic 32 gauge x 02/21/24 04/27/24 5/32 (BD Ultra-Fine Claribel Pen Needle) phenazopyridine 200 mg tablet 200 mg PO TID PRN 02/21/24 04/27/24 triamcinolone acetonide 0.1 % 1 applic topical DAILY 02/21/24 04/27/24 topical ointment diltiazem HCl 120 mg 120 mg PO BID 02/24/24 04/27/24 capsule,extended release 24 hr cefpodoxime 200 mg tablet 200 mg PO BID 10 days #20 tabs 04/27/24 Previous Rx's ?Medication ?Instructions ?Recorded apixaban 5 mg tablet (Eliquis) 5 mg PO BID #180 tabs 07/23/23 levetiracetam 500 mg tablet 500 mg PO BID #180 tabs 11/11/23 cefpodoxime 200 mg tablet 200 mg PO BID #14 tabs 02/03/24 cefpodoxime 200 mg tablet 200 mg PO BID 10 days #20 tabs 04/27/24 Allergies Allergy/AdvReac Type Severity Reaction Status Date / Time No Known Allergies Allergy Verified 04/27/24 14:57 General Stated Complaint: AMS/LOC TREVOR: 3 Exam Narrative Exam Narrative: Alert interactive Speaking full sentences Normal heart rate warm well-perfused Moist mucous membranes Nontender abdomen Cloudy urine in Romero bag Course Vital Signs Vital signs: Vital Signs Temperature 36.8 C 04/27/24 15:00 Pulse 97 H 04/27/24 15:00 Respiratory Rate 20 04/27/24 15:00 Blood Pressure 158/92 H 04/27/24 15:00 Pulse Oximetry 97 04/27/24 15:00 Temperature 36.8 C 04/27/24 15:00 Temperature Source Temporal Artery Scan 04/27/24 15:00 Pulse 97 H 04/27/24 15:00 Respiratory Rate 20 04/27/24 15:00 Blood Pressure 158/92 H 04/27/24 15:00 Blood Pressure Position Sitting 04/27/24 15:00 Pulse Oximetry 97 04/27/24 15:00 Oxygen Delivery Method Room Air 04/27/24 15:00 Oxygen Flow Rate 0 04/27/24 15:00 Pain Level 0 04/27/24 15:00 Medical Decision Making 73-year-old male history of CVA, dementia brought in by son for evaluation of UTI, possible fevers at home, cloudy urine in Romero bag, patient alert interactive following commands, evidence of baseline dementia and prior CVA on examination, nontoxic afebrile nontachycardic normotensive not hypoxic. Consider UTI will obtain UA and treat appropriately pending results 15: 58 patient is currently no acute stress evidence of UTI, obtain patient's past microbiology susceptibility, will start cefpodoxime; will change Romero catheter as it is due to be changed within the next couple of days. Patient be discharged home Quality:SDOH Health Related Social Needs: No Data to Display PFSH All Active Problems (Updated 04/27/24 @ 15:59 by Bari Lara MD) Acute UTI (Acute) Atrial fibrillation with RVR (Acute) Altered mental state (Acute) Sepsis (Acute) Seizure (Acute) New onset seizure without head trauma (Acute) Global aphasia (Acute) Stroke (Chronic) Dysplastic colon polyp (Acute) Urothelial carcinoma (Acute) 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) Screening for colon cancer (Acute) Recurrent nephrolithiasis (Acute) Medical History Dystrophia unguium Edema, lower extremity Candidiasis of skin Peripheral venous insufficiency Lower urinary tract obstructive syndrome Weakness of both lower extremities Uses self-applied continuous glucose monitoring device Cognitive decline Cerebral infarction Hyperbilirubinemia Cardiomegaly Partial epilepsy 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 Atrial fibrillation with rapid ventricular response Obstructive sleep apnea syndrome (08/10/08) cpap Obstructive uropathy Peripheral neuropathy Venous insufficiency History of depression Iron deficiency CARLOS A on CPAP Hypertension Type 2 diabetes mellitus Dementia Ulcer of [place] limited to breakdown of skin Acute kidney injury superimposed on chronic kidney disease Creatinine elevation Elevated WBCs Hyperglycemia Ureterolithiasis Diabetic leg ulcer Phimosis Venous insufficiency (chronic) (peripheral) Bladder cancer Gross hematuria Chronic venous stasis Noncompliance Anxiety (08/10/08) Asbestosis (08/10/08) Asthma (07/08/12) pt. denies this Carpal tunnel syndrome Olecranon bursitis Peripheral neuralgia Atopic conjunctivitis (10/22/13) Benign prostatic hyperplasia (02/25/13) Depressive disorder (02/25/13) Diabetes mellitus (02/25/13) Essential hypertension (06/24/13) Frequency of micturition (01/03/16) Glaucoma (10/22/13) B/L Hyperlipidemia (02/25/13) Hypermetropia (10/22/13) Hypogonadism Idiopathic peripheral neuropathy Low back pain (08/10/08) Nuclear senile cataract (10/22/13) Obesity (08/10/08) Aviva-en-y 02/2014 Osteoarthritis (08/10/08) BILATERAL KNEE replacements Peptic reflux disease (08/10/08) Presbyopia (10/22/13) Pterygium (08/10/08) LEFT EYE Regular astigmatism (10/22/13) Sensorineural hearing loss, bilateral (09/05/17) Tubular adenoma Tubular and tubulovillous adenoma 2011 --suggested repeat 2017 Umbilical hernia (08/18/12) Urgency of urination (01/03/16) Varicose veins of lower extremity (08/10/08) Urinary tract infection Chronic anticoagulation Atrial fibrillation Surgical History S/P laparoscopic-assisted sigmoidectomy Hx of total knee arthroplasty Pt reports he has had a left and right knee repacement. Pt doesnt remember when and thinks he had it done at [facility] Status post cholecystectomy S/P cholecystectomy (~01/04/21) acute hemorrhagic cholecystitis and xanthogranulomatous inflammation S/P partial colectomy (~05/09/20) History of transurethral destruction of bladder lesion S/P colonoscopy Boo-2011- tubular and tubulovillous polyps Henderson- 2019- sessile serrated with low grade dysplacia, tubullovillous with high grade dysplacia and tubular adenomas Status post abdominoplasty (05/23/16) Status post tonsillectomy Status post total knee replacement B/L Vasectomy Aviva-en-y surgery for weight loss Ronnell Fundoplication Repair of umbilical hernia Laparoscopic Family History Mother Cancer Father Heart disease Sister Cancer Sister No problems noted. Brother Cancer Brother No problems noted. Brother No problems noted. Son No problems noted. Son No problems noted. Son No problems noted. Social History Smoking/Tobacco Use Status: Never Second Hand Exposure: Yes Smoking risk assessment performed?: Yes Alcohol Intake: never Drug use: Never Substance use type: does not use Caregiver/Support person: No Household members: other Details: son Housing: house Communication Needs: None Education Level: high school Do you need help understanding health information?: Never Pets and animals: No Do you think of yourself as: straight/heterosexual Current gender identity: male What is your relationship status?: How often do you talk on the phone with friends or family?: once per week How often do you get together with friends or relatives?: decline to answer How often do you attend lutheran or scientologist services?: decline to answer Do you belong to any clubs or organized social groups?: no Panel score (0-1 are the most socially isolated patients): 0 What type of physical activity do you participate in: walking Duration: 15-30 minutes/day Frequency: 1-2 times per week Velia/Episcopal: Presybeterian Special velia needs: No Seatbelt use: always Helmet use: No Drive intox or ride w/intox cdl truck driver: No Do you feel safe at home: Yes Do you feel safe in your relationship?: Yes
--- NOTE | 2024-04-27 15:17 | NUR.NOTE ---
Nursing Note: this RN called son son says dad was at [place] [facility] today nurse reports he had a fever of 99.3F was more unsteady on his feet and his urine looked cloudy. This RN reported this information to provider. Son says he will get back to the ED in 10min from now
[2024-04-27 15:42] LABS: Bilirubin Negative (Negative); Blood Large (Negative); Clarity Sl Cloudy (Clear); Glucose Negative (Negative); Ketones Negative (Negative); Leukocyte Esterase Moderate (Negative); Nitrite Positive (Negative); Specific Gravity 1.015 (1.005-1.025); Urobilinogen 0.2 mg/dL (Up to 0.2); pH 5.5 (5-8)
[2024-04-27 15:57] LABS: Bacteria Many HPF (Negative); C & S Indicated? Yes; Casts Negative LPF (Negative); Crystals Negative HPF (Negative); Epithelial Cells Rare HPF (Negative); Mucus Negative (Negative); RBC 20-50 HPF (0-2); WBC >50 HPF (0-5)
[2024-04-27] MEDS: Cefpodoxime 200 MG TAB PO (16:14)
--- NOTE | 2024-04-27 16:17 | NUR.NOTE ---
Nursing Note: per provider this RN removed old thornton cath and place new one using sterile teqnique
--- NOTE | 2024-04-30 09:16 | NUR.NOTE ---
Accessed chart to look fo antibotic. ED JILLNursing Note:
== END 2024-04-27 16:30 | disposition home or self-care (01) ==
PROVIDERS: Emergency Provider Emergency Medicine; PCP Family Medicine
DX: N39.0 Urinary tract infection, site not specified (principal); I48.0 Paroxysmal atrial fibrillation; I10 Essential (primary) hypertension; E11.40 Type 2 diabetes mellitus with diabetic neuropathy, unspecified; G40.909 Epilepsy, unspecified, not intractable, without status epilepticus; Z86.73 Personal history of transient ischemic attack (TIA), and cerebral infarction without residual deficits; F03.90 Unspecified dementia, unspecified severity, without behavioral disturbance, psychotic disturbance, mood disturbance, and anxiety; Z96.0 Presence of urogenital implants
CPT/HCPCS: 87077; 99283; 81003; 81015; 87086; 87186

== ENCOUNTER 2024-06-07 14:06 | Emergency (ER) | payer MEDICARE, SELFPAY ==
[2024-06-07] VITALS (9 sets, daily range): BP systolic 133–148; BP diastolic 61–82; PULSE 96–112; RESP 12; TEMP 36.3–37; O2SAT 93–198
--- NOTE | 2024-06-07 14:49 | ED.GENADUL_ITS ---
Discharge Plan Disposition Patient Disposition: Home Discharge Details Clinical Impression: UTI (urinary tract infection) due to urinary indwelling Romero catheter Primary Care Provider: David Massey ED Provider: Adis Jacome [place] Meds and New Rx's Prescriptions: New ciprofloxacin HCl 500 mg tablet 500 mg PO BID Qty: 20 0RF Continued levetiracetam 500 mg tablet 500 mg PO BID Qty: 180 3RF metformin 1,000 mg tablet 1,000 mg PO BID atorvastatin 40 mg tablet 40 mg PO DAILY metoprolol tartrate 50 mg tablet 50 mg PO BID Eliquis 5 mg tablet 5 mg PO BID Qty: 180 3RF acetaminophen 325 mg tablet 650 mg PO Q4H PRN (DME) pen needle, diabetic [BD Ultra-Fine Claribel Pen Needle] 32 gauge x 5/32 needle See Rx Instructions .Route Rx Instructions: As directed (DME) Dexcom G7 Water Resources Program Director Misc See Rx Instructions .Route Rx Instructions: As directed (DME) Dexcom G7 Sensor Device See Rx Instructions .Route Rx Instructions: As directed docusate sodium 100 mg capsule 100 mg PO BID PRN finasteride 5 mg tablet 5 mg PO DAILY lorazepam 0.5 mg tablet 0.5 mg PO QHS PRN nystatin [Nystop] 100,000 unit/gram powder 1 applic topical BID (DME) blood sugar diagnostic Strip See Rx Instructions .Route Rx Instructions: As directed (DME) lancets 33 gauge misc See Rx Instructions .Route Rx Instructions: As directed (DME) OneTouch Ultra Test Strip See Rx Instructions .Route Rx Instructions: As directed phenazopyridine 200 mg tablet 200 mg PO TID PRN Rx Instructions: for painful urination triamcinolone acetonide 0.1 % ointment 1 applic topical DAILY furosemide 20 mg tablet 20 mg PO DAILY Patient Comments: Take 1 tablet by mouth every morning Dr. Cuellar- Cardiology lisinopril 5 mg tablet 5 mg PO DAILY diltiazem HCl 120 mg capsule,extended release 24hr 120 mg PO BID levothyroxine 50 mcg tablet 50 mcg PO DAILY Patient Comments: Take 1 tablet by mouth once a day Take on an empty stomach 30 minutes before breakfast or other medications Discontinued cefpodoxime 200 mg tablet 200 mg PO BID Qty: 14 0RF Rx Instructions: must administer with a meal/food Discharge Instructions Additional Instructions: You are seen in the emergency department for your leaking catheter. It appears you have a urinary tract infection which you are receiving antibiotics that you should take as directed. As we discussed, please return to the emergency department if you develop fevers chills nausea or vomiting. Discharge Data Discharge Date/Time-TO BE ENTERED AT DEPARTURE: 06/07/24 16:55 HPI General Date/Time Provider Initiated Documentation: 06/07/24 14:08 . HPI Narrative: [facility] This is an overall well-appearing mildly tachycardic but afebrile 73-year-old male with malfunctioning Romero catheter which will be changed out given that he had no acute urinary retention and only 28 cc on bladder scan. No fevers to suggest sepsis. No pain out of proportion to suggest Dragan's gangrene. No nausea no vomiting so not suspicious for any intra-abdominal process. Will send urinalysis to ensure the patient does not have a urinary tract infection. Patient reports that his Romero catheter was placed last week and the niece has close outpatient follow-up urology in 2 days. Bladder scan patient had 28 cc in his bladder. He appears quite well-hydrated and last emptied his Romero bag this morning. He had 200 cc. No signs of paraphimosis. Given no acute urinary retention and do not feel that the patient's clot hematuria despite his use of apixaban. Will defer CBI and hand irrigation as resolved. 4:13 PM Urinalysis showing moderate blood but nitrite negative with large leuk esterase. Microscopy with greater than 50 WBCs. Per chart review patient had been on cefpodoxime last month. His microscopy showed Enterobacter resistant to cef azolin. Sensitivities were as follows: Ceftazidime, ciprofloxacin, gentamicin, imipenem, tobramycin, levofloxacin, trimethoprim/sulfamethoxazole, and piperacillin/tazobactam. It is likely that he was inadequately treated so we will provide him with ciprofloxacin. Will redocument heart rate and discharged with an trial of expectant outpatient management. Repeat heart rate 101. Patient has a history of atrial fibrillation with RVR. He has been tachycardic in the emergency department in the past. He was due to take his diltiazem Chronic conditions affecting the care of the patient: Prior history of CVA HPI This is a 73-year-old male who had a Romero catheter placed last week now with a reported urine leaking from around his catheter for the past approximately 8 hours. Patient denies fevers nausea vomiting. He last changed 8 urinary bag this morning when he emptied approximately 200 cc out overnight. He has appointment several days with urology. He denies dysuria and frequency. He has not taken any recent falls. He denies headache. He arrives with his son. Exam General: Chronically ill-appearing in no acute distress speaking in complete sentences. Head: Normocephalic, atraumatic. Eye: Extraocular eye movements intact. No conjunctival injection. No scleral icterus. Ear, nose, mouth, throat: Grossly normal inspection. Normal voice, handling secretions normally. Neck: Trachea midline. Cardiovascular: Well-perfused distal extremities. Respiratory: Nonlabored respiration. Gastrointestinal: Nondistended abdomen. Soft nontender. No rebound. No guarding. : Uncircumcised penis. Romero catheter in place. No signs of paraphimosis. No testicular tenderness. Urine is draining around a Romero catheter tubing. Musculoskeletal: No edema. Moving all 4 extremities spontaneously. Skin: Normal for age and race, grossly normal temperature and turgor. No acute rash. Neurologic: Alert and appropriate, no apparent acute deficits. Psychiatric: Mood and manner are appropriate. Grooming and personal hygiene are appropriate. Related Data Home Medications ?Medication ?Instructions ?Recorded ?Confirmed furosemide 20 mg tablet 20 mg PO DAILY 06/01/21 06/07/24 metformin 1,000 mg tablet 1,000 mg PO BID 01/23/22 06/07/24 levothyroxine 50 mcg tablet 50 mcg PO DAILY 12/03/22 06/07/24 atorvastatin 40 mg tablet 40 mg PO DAILY 12/31/22 06/07/24 metoprolol tartrate 50 mg tablet 50 mg PO BID 04/29/23 06/07/24 apixaban 5 mg tablet (Eliquis) 5 mg PO BID #180 tabs 07/23/23 06/07/24 levetiracetam 500 mg tablet 500 mg PO BID #180 tabs 11/11/23 06/07/24 lisinopril 5 mg tablet 5 mg PO DAILY 01/28/24 06/07/24 acetaminophen 325 mg tablet 650 mg PO Q4H PRN 02/21/24 06/07/24 blood sugar diagnostic 02/21/24 05/07/24 blood sugar diagnostic (OneTouch 02/21/24 05/07/24 Ultra Test strips) blood-glucose meter,continuous 02/21/24 05/07/24 (Dexcom G7 Water Resources Program Director) blood-glucose sensor (Dexcom G7 02/21/24 05/07/24 Sensor device) docusate sodium 100 mg capsule 100 mg PO BID PRN 02/21/24 06/07/24 finasteride 5 mg tablet 5 mg PO DAILY 02/21/24 06/07/24 lancets 33 gauge 02/21/24 05/07/24 lorazepam 0.5 mg tablet 0.5 mg PO QHS PRN 02/21/24 06/07/24 nystatin 100,000 unit/gram topical 1 applic topical BID 02/21/24 06/07/24 powder (Nystop) pen needle, diabetic 32 gauge x 02/21/24 05/07/24 (BD Ultra-Fine Claribel Pen Needle) phenazopyridine 200 mg tablet 200 mg PO TID PRN 02/21/24 06/07/24 triamcinolone acetonide 0.1 % 1 applic topical DAILY 02/21/24 06/07/24 topical ointment diltiazem HCl 120 mg 120 mg PO BID 02/24/24 06/07/24 capsule,extended release 24 hr ciprofloxacin HCl 500 mg tablet 500 mg PO BID #20 tabs 06/07/24 Previous Rx's ?Medication ?Instructions ?Recorded apixaban 5 mg tablet (Eliquis) 5 mg PO BID #180 tabs 07/23/23 levetiracetam 500 mg tablet 500 mg PO BID #180 tabs 11/11/23 ciprofloxacin HCl 500 mg tablet 500 mg PO BID #20 tabs 06/07/24 Allergies Allergy/AdvReac Type Severity Reaction Status Date / Time No Known Allergies Allergy Verified 06/07/24 14:18 General Stated Complaint: Urinary TREVOR: 4 Course Vital Signs Vital signs: Vital Signs Temperature 37.0 C 06/07/24 14:17 Pulse 102 H 06/07/24 14:17 Respiratory Rate 12 06/07/24 14:17 Blood Pressure 148/61 H 06/07/24 14:17 Pulse Oximetry 93 06/07/24 14:17 Temperature 37.0 C 06/07/24 14:17 Temperature Source Oral 06/07/24 14:17 Pulse 102 H 06/07/24 14:17 Respiratory Rate 12 06/07/24 14:17 Blood Pressure 148/61 H 06/07/24 14:17 Blood Pressure Position Sitting 06/07/24 14:17 Pulse Oximetry 93 06/07/24 14:17 Oxygen Delivery Method Room Air 06/07/24 14:17 Oxygen Flow Rate 0 06/07/24 14:17 Pain Level 0 06/07/24 14:17 Medical Decision Making Quality:SDOH Health Related Social Needs: No Data to Display PFSH All Active Problems (Updated 06/07/24 @ 16:32 by Adis Jacome MD) UTI (urinary tract infection) due to urinary indwelling Romero catheter (Acute) Atrial fibrillation with RVR (Acute) Altered mental state (Acute) Sepsis (Acute) Seizure (Acute) New onset seizure without head trauma (Acute) Global aphasia (Acute) Stroke (Chronic) Dysplastic colon polyp (Acute) Urothelial carcinoma (Acute) 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 denies this Atopic conjunctivitis (10/22/13) Atrial fibrillation Atrial fibrillation with rapid ventricular response Benign prostatic hyperplasia (02/25/13) Bladder cancer Candidiasis of skin Cardiomegaly Carpal tunnel syndrome Cerebral infarction 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 Chronic anticoagulation Chronic venous stasis Cognitive decline Creatinine elevation Dementia Depressive disorder (02/25/13) Diabetes mellitus (02/25/13) Diabetic leg ulcer Dystrophia unguium Edema, lower extremity Elevated WBCs Essential hypertension (06/24/13) Frequency of micturition (01/03/16) Glaucoma (10/22/13) B/L Gross hematuria History of depression Hyperbilirubinemia Hyperglycemia Hyperlipidemia (02/25/13) Hypermetropia (10/22/13) Hypertension Hypogonadism Idiopathic peripheral neuropathy Iron deficiency Low back pain (08/10/08) Lower urinary tract obstructive syndrome Noncompliance Nuclear senile cataract (10/22/13) Obesity (08/10/08) Aviva-en-y 02/2014 Obstructive sleep apnea syndrome (08/10/08) cpap Obstructive uropathy Olecranon bursitis CARLOS A on CPAP Osteoarthritis (08/10/08) BILATERAL KNEE replacements Partial epilepsy Peptic reflux disease (08/10/08) Peripheral neuralgia Peripheral neuropathy Peripheral venous insufficiency Phimosis Presbyopia (10/22/13) Pterygium (08/10/08) LEFT EYE Regular astigmatism (10/22/13) Sensorineural hearing loss, bilateral (09/05/17) Tubular adenoma Tubular and tubulovillous adenoma 2011 --suggested repeat 2017 Type 2 diabetes mellitus Ulcer of hermosillo limited to breakdown of skin Umbilical hernia (08/18/12) Ureterolithiasis Urgency of urination (01/03/16) Urinary tract infection Uses self-applied continuous glucose monitoring device UTI (urinary tract infection) Varicose veins of lower extremity (08/10/08) Venous insufficiency Venous insufficiency (chronic) (peripheral) Weakness of both lower extremities Surgical History History of transurethral destruction of bladder lesion Hx of total knee arthroplasty Pt reports he has had a left and right knee repacement. Pt doesnt remember when and thinks he had it done at [facility] Ronnell Fundoplication Repair of umbilical hernia Laparoscopic Aviva-en-y surgery for weight loss S/P cholecystectomy (~01/04/21) acute hemorrhagic cholecystitis and xanthogranulomatous inflammation S/P colonoscopy Haddad-2011- tubular and tubulovillous polyps [place]- 2019- sessile serrated with low grade dysplacia, tubullovillous with high grade dysplacia and tubular adenomas S/P laparoscopic-assisted sigmoidectomy S/P partial colectomy (~05/09/20) Status post abdominoplasty (05/23/16) Status post cholecystectomy Status post tonsillectomy Status post total knee replacement B/L Vasectomy Family History Mother Cancer Father Heart disease Sister Cancer Sister No problems noted. Brother Cancer Brother No problems noted. Brother No problems noted. Son No problems noted. Son No problems noted. Son No problems noted. Social History Smoking/Tobacco Use Status: Never Second Hand Exposure: Yes Smoking risk assessment performed?: Yes Alcohol Intake: never Drug use: Never Substance use type: does not use Caregiver/Support person: No Household members: other Details: son Housing: house Communication Needs: None Education Level: high school Do you need help understanding health information?: Never Pets and animals: No Do you think of yourself as: straight/heterosexual Current gender identity: male What is your relationship status?: How often do you talk on the phone with friends or family?: once per week How often do you get together with friends or relatives?: decline to answer How often do you attend baptism or evangelical services?: decline to answer Do you belong to any clubs or organized social groups?: no Panel score (0-1 are the most socially isolated patients): 0 What type of physical activity do you participate in: walking Duration: 15-30 minutes/day Frequency: 1-2 times per week Velia/Presybeterian: Mandaen Special velia needs: No Seatbelt use: always Helmet use: No Drive intox or ride w/intox driver trainer: No Do you feel safe at home: Yes Do you feel safe in your relationship?: Yes
[2024-06-07] MEDS: Lidocaine 2% Jelly 11 ML SYR UR (16:00)
[2024-06-07 16:04] LABS: Bilirubin Negative (Negative); Blood Moderate (Negative); Clarity Cloudy (Clear); Glucose Negative (Negative); Ketones Negative (Negative); Leukocyte Esterase Large (Negative); Nitrite Negative (Negative); Urobilinogen 0.2 mg/dL (Up to 0.2)
[2024-06-07 16:11] LABS: C & S Indicated? Yes; WBC >50 HPF (0-5)
[2024-06-07] MEDS: Ciprofloxacin 500 MG TAB PO (16:51)
== END 2024-06-07 16:55 | disposition home or self-care (01) ==
PROVIDERS: Emergency Provider Emergency Medicine; PCP Family Medicine
DX: T83.038A Leakage of other urinary catheter, initial encounter (principal); T83.511A Infection and inflammatory reaction due to indwelling urethral catheter, initial encounter; I48.91 Unspecified atrial fibrillation; E11.40 Type 2 diabetes mellitus with diabetic neuropathy, unspecified; I10 Essential (primary) hypertension; Z86.73 Personal history of transient ischemic attack (TIA), and cerebral infarction without residual deficits; Z79.84 Long term (current) use of oral hypoglycemic drugs; Z79.01 Long term (current) use of anticoagulants
CPT/HCPCS: 99283; 81003; 81015; 87086

== ENCOUNTER → 2024-06-09 08:22 | Outpatient (BNVA) | payer MEDICARE, SELFPAY | PROVIDERS: PCP Family Medicine; Referring Provider Family Medicine; Visit Provider Nurse Practitioner Gerontology | DX: N13.9 Obstructive and reflux uropathy, unspecified (principal); R41.82 Altered mental status, unspecified; R47.01 Aphasia; E11.9 Type 2 diabetes mellitus without complications; I48.91 Unspecified atrial fibrillation; I10 Essential (primary) hypertension | CPT/HCPCS: 99214 ==

== ENCOUNTER 2024-06-09 08:59 | Emergency (ER) | payer MEDICARE, SELFPAY ==
--- NOTE | 2024-06-09 09:00 | DI.RAD_ITS ---
Exam(s) XR PORTABLE CHEST AP EXAM: XR PORTABLE CHEST AP CLINICAL HISTORY: altered mental status TECHNIQUE: 2D digital imaging was performed of the chest. One image was obtained. An AP view was ob tained. COMPARISON: CR XR CHEST 2V PA LATERAL from 05/02/2023 CR,XR XR PORTABLE CHEST AP from 05/13/2023 CR XR CHEST 2V PA LATERAL from 01/28/2024 FINDINGS: MEDIASTINUM: Normal. HEART: Cardiomegaly. PULMONARY VASCULATURE: Normal. LUNGS: Clear. PLEURAL SPACE: No pleural effusion or pneumothorax. BONE:Within normal limits for the patient's age. OTHER FINDINGS:Normal. IMPRESSION: No acute pulmonary findings. DATA REPOSITORY: RADIATION DOSE DELIVERED:
--- NOTE | 2024-06-09 09:00 | DI.CT_ITS ---
Exam(s) CT HEAD WO EXAM: CT HEAD WO CLINICAL HISTORY: altered mental status. TECHNIQUE: Imaging Protocol: Axial computed tomography images with coronal and sagittal reformatted images were created and reviewed COMPARISON: CT CT HEAD CERVICAL SPINE WO from 01/28/2024 FINDINGS: Ventricles and Extra axial spaces: Normal in size and morphology for the patient's age. Hemorrhage: None. Cerebral parenchyma: There is an old left parietal infarct. There are areas of decreased attenuation in the white matter consistent with chronic microvascular ischemic disease. Midline shift: None. Brainstem/Cerebellum: Normal. Calvarium: Normal. Visualized Paranasal sinuses/Mastoids: There is a mucous retention cyst or polyp in the left maxillar y sinus. Soft Tissues: Unremarkable. IMPRESSION: No acute intracranial process. RADIATION DOSE DELIVERED: 889.14mGy.cm Total DLP DATA REPOSITORY: All CT scans at this facility are submitted to the National Radiology Data Registry (NRDR) Dose Index Registry (DIR) with the [employer] (ACR). RADIATION OPTIMIZATION: All CT scans at this facility use at least one of these dose optimization te chniques: automated exposure control; mA and/or kV adjustment per patient size (includes targeted exa ms where dose is matched to clinical indication); or iterative reconstruction.
[2024-06-09 09:10] VITALS: BP 138/72; PULSE 106; RESP 17; TEMP 36.6; O2SAT 99
--- NOTE | 2024-06-09 09:15 | RT.EKG_ITS ---
APPROVED REPORT Exam: Resting ECG Reason for Exam: altered mental status Patient Location: E HR:95 bpm ECG Measurements Heart Rate 95 AXIS NH [id number] P [id number] QRSd 102 QRS 60 QT 405 T 31 QTc 510 Conclusion Atrial fibrillation 95 low voltage no stemi
--- OUTSIDE RECORDS SUMMARY | 2024-06-09 09:18 | XMS_ITS | Encounter Summary ---
Author Organization [facility] Address [facility] [place] [address] Care Team Providers Care Surface Grinding Machine Hand Name Role Phone David Massey MD Primary Care Provider [phone] Reason for Visit * Reason Comments Nephrolithiasis * Consultation (Urgent) - Closed Specialty Diagnoses / Procedures Referred By Sonal dawson Referred To Contact Urology Diagnoses Calculus of ureter 07/14 - [facility] - STONES Tamir Osuna MD [address] [place] [address] [facility] [place] [address] Referral ID Status Reason Start Date Expiration Date V isits Requested Visits Authorized [id number] Closed Consult, Test & Treat Connection Center PCP Updated and/or Approved 06/30/2021 06/30/2022 6 6 Encounter Details Date Type Department Care Team (Late st Contact Info) Description 09/12/2021 3:40 PM EST Office [place] [address] Catrachito Mehta MD [facility] [address] Ureteral stone Social History Tobacco [...] ABDOMINOPLASTY performed by Adis Membreno MD at [facility] OR ??? PRO LAP GASTRIC BYPASS/KEYSHA-EN-Y 02/08/2014 @LAPAROSCOPIC GASTROPLASTY, performed by Wally Pfeiffer MD at [facility] OR ??? PRO LAP, DIAGNOSTIC ABDOMEN 02/10/2014 LAPAROSCOPY, DIAGNOSTIC, ABDOMEN performed by Wally Pfeiffer MD at [facility] OR ??? PRO LAP, ESOPHAGUS, OTHER PROC 02/08/2014 LAPAROSCOPIC REVISION OF DELROY FUNDOPLASTY performed by Wally Pfeiffer MD at [facility] OR ??? PRO REPAIR INCISIONAL HERNIA, REDUCIBLE N/A 05/17/2016 REPAIR INITIAL INCISIONAL OR VENTRAL HERNIA REDUCIBLE [facility] ??? PRO UPPER GI ENDOSCOPY, BIOPSY 12/11/2013 UPPER GASTROINTESTINAL ENDOSCOPY,WITH BIOPSY SINGLE OR MULTIPLE performed by Wally Pfeiffer MDat [facility] ENDOSCOPY ??? PRO UPPER GI ENDOSCOPY, DIAGNOSTIC 12/25/2013 EGD, UPPER GI ENDOSCOPY performed by Wally Pfeiffer MD at [facility] ENDOSCOPY ??? PRO UPPER GI ENDOSCOPY, DIAGNOSTIC 02/08/2014 ENDOSCOPY, UPPER GI, DIAGNOSTIC, WITH OR WITHOUT SPECIMENS performed by Wally Pfeiffer MD at [facility] OR ??? TONSILLECTOMY ??? TOTAL [...] fevers, sweats, chills, anorexia, denies weight changes. VIDEO OPERATOR: Denies loss of consciousness, denies balance difficulty, [...] ureter documented in this encounter Care Teams Surface Grinding Machine Hand Relationship Specialty Start Date End Date David Massey MD [address] [place] [address] PCP - General Emergency Medicine 03/31/21 documented as of this encounter
--- OUTSIDE RECORDS SUMMARY | 2024-06-09 09:18 | XMS_ITS | Encounter Summary ---
[facility] [place] [address] Care Team Providers Care Bagging Machine Operator Name Role Phone David Massey MD Primary Care Provider [phone] Reason for Referral * Diagnostic Test (Routine) - Closed Specialty Diagnoses / Procedures Referred By Sonal dawson Referred To Contact Diagnoses Leg edema Procedures Venous Valvular Incomp, Bilat Legs Yanira Ha APRN [facility] [address] [facility] [address] [place] [id number] Referral ID Status Reason Start Date Expiration Date V isits Requested Visits Authorized [id number] Closed Specialty Service Requested 12/05/2021 12/05/2022 1 1 Encounter Details Date Type Department Care Team (Late st Contact Info) Description 12/05/2021 Orders [place] [address] Yanira Ha APRN [facility] [place] [address] Leg edema Social History Tobacco [...] on file documented as of this encounter Results * Venous Valvular Incomp, Bilat Legs (01/10/2022 9:36 AM EDT) VB Text Report Department: Vascular Surgery Lab Patient: [id number] (EUGENE PURVIS) CPT: 57224 Referring Physician: YANIRA HA APRN ?? Indications: [...] VASCUBASE 01/10/2022 9:36 AM EDT Yanira Ha [facility] VASCULAR ORDERABLE S VASCUBASE documented in this encounter Visit Diagnoses Diagnosis Leg edema Edema documented in this encounter Care Teams Bagging Machine Operator Relationship Specialty Start Date End Date David Massey MD [address] [place] [address] PCP - General Emergency Medicine 03/31/21 documented as of this encounter
--- OUTSIDE RECORDS SUMMARY | 2024-06-09 09:18 | XMS_ITS | Encounter Summary ---
Author Organization [facility] Address [facility] [place] [address] Care Team Providers Care Launch Leader Name Role Phone David Massey MD Primary [...] Expiration Date Visits Re quested Visits Authorized [id number] 1 1 Encounter Details Date Type Department Care Team (Latest Contact Info) Description 10/13/2021 11:05 AM EST - 10/13/2021 1:40 PM [facility] Hospital Encounter Outpatient [place] [address] Romario Womack Jr., MD [facility] [place] [address] History of renal stone ~1980s Discharge Disposition: [...] closest emergency room or call the hospital word processor operator at [phone] and ask for physician operations lieutenant covering for your physician. Questions or problems after 5pm or on a weekend: Call the [facility] word processor operator at and ask for the physician operations lieutenant covering for your doctor. At 11:30 am [...] pain medications The number for questions is [phone] before 5 PM weekdays and [phone] after 5 PM and weekends. Activity level: [...] stone in 2-3 weeks time. Please call [phone] if you do not hear from the [...] as of this encounter H&P Notes * Jose C Skaggs D - 10/13/2021 11:58 AM EST Urology [...] Latest Ref Range: Clear Turbid (A) Spec [place] UA Latest Ref Range: 1.005 - 1.030 [...] Latest Ref Range: <=4 /HPF 3 Yeast [place] UA Latest Ref Range: None /HPF Few (A) Culture Reflexed Unknown Yes Anticoagulation: Yes Past Medical History: Diagnosis Date ??? Blood disorder ??? Circulatory disease ??? Diabetes Past Surgical History: Procedure Laterality Date ??? CHOLECYSTECTOMY ??? PRO EXCISE EXCESS SKIN TISSUE, ABDOMEN N/A 05/17/2016 ABDOMINOPLASTY performed by Adis Membreno MD at [facility] MAIN OR ??? PRO LAP GASTRIC BYPASS/KEYSHA-EN-Y 02/08/2014 @LAPAROSCOPIC GASTROPLASTY, performed by Wally Pfeiffer MD at [facility] OR ??? PRO LAP, DIAGNOSTIC ABDOMEN 02/10/2014 LAPAROSCOPY, DIAGNOSTIC, ABDOMEN performed by Wally Pfeifefr MD at [facility] OR ??? PRO REPAIR INCISIONAL HERNIA, REDUCIBLE N/A 05/17/2016 REPAIR INITIAL INCISIONAL OR VENTRAL HERNIA REDUCIBLE performed [facility] ??? PRO UNLISTED LAPAROSCOPIC PROCEDURE ESOPHAGUS 02/08/2014 LAPAROSCOPIC REVISION OF DELROY FUNDOPLASTY performed by Wally Pfeiffer MD at [facility] OR ??? PRO UPPER GI ENDOSCOPY, BIOPSY 12/11/2013 UPPER GASTROINTESTINAL ENDOSCOPY,WITH BIOPSY SINGLE OR MULTIPLE performed by Wally Pfeiffer MDat [facility] ENDOSCOPY ??? PRO UPPER GI ENDOSCOPY, DIAGNOSTIC 12/25/2013 EGD, UPPER GI ENDOSCOPY performed by Wally Pfeiffer MD at [facility] ENDOSCOPY ??? PRO UPPER GI ENDOSCOPY, DIAGNOSTIC 02/08/2014 ENDOSCOPY, UPPER GI, DIAGNOSTIC, WITH OR WITHOUT SPECIMENS performed by Wally Pfeiffer MD at [facility] MAIN OR ??? TONSILLECTOMY ??? TOTAL KNEE [...] Operative Note Patient Name: Eugene Purvis : [id number] MR#: [id number] Case Date: 10/13/2021 Surgeon: Surgeon(s) and Role: [...] Operative Note Patient Name: Eugene Purvis : [id number] MR#: [id number] Case Date: 10/13/2021 Surgeon: Surgeon(s) and Role: [...] 12:4 4 PM EST Cystourethroscopy, Ureter Catheter ([id number]) 10/13/2021 12:04 PM EST stone Cystoscopy, Insert Ureteral Stent ([id number]) 10/13/2021 12:04 PM EST stone URINALYSIS MICROSCOPIC [...] Greater than 50,000 cfu/mL Roxy glabrata (A) [facility] Gram Stain Many Neutrophils seen Moderate Yeast seen (A) [facility] Organism Roxy albicans(A) [facility] Organism Roxy glabrata(A) [facility] Organism Yeast(A) [facility] Cystoscopic Urine 10/13/2021 12:45 PM EST 10/13/2021 2:02 PM EST Comment:Left renal urine for culture and gram stain Narrative Resulting Agency Comment Spec In Lab Romario Womack Jr., MD MICROBIOLOGY - GEN ERAL ORDERABLES [facility] [place] [address] * (ABNORMAL) Urine culture Cystoscopic Urine (10/13/2021 12:44 PM EST) Urine Culture Greater than 50,000 cfu/mL Roxy glabrata 1,000-9,000 cfu/ml Roxy albicans (A) [facility] Organism Roxy glabrata(A) [facility] Organism Roxy albicans(A) [facility] Cystoscopic Urine 10/13/2021 12:44 PM EST 10/13/2021 2:01 PM EST Comment:Cystoscopic bladder urine for culture Narrative Resulting Agency Comment Spec In Lab Romario Womack Jr., MD MICROBIOLOGY - GEN ERAL ORDERABLES [facility] [place] [address] * (ABNORMAL) Urine culture (10/13/2021 11:04 AM EST) Urine Culture 10,000-49,00 0 cfu/ml Roxy glabrata 1,000-9,000 cfu/ml Roxy albicans 1,000-9,000 cfu/ml mixed mucosal red (A) [facility] Organism Roxy glabrata(A) [facility] Organism Roxy albicans(A) [facility] Clean Catch Urine 10/13/2021 11:04 AM EST 10/13/2021 2:26 PM EST Narrative Resulting Agency Comment Spec In Lab Jose C Skaggs MD MICROBIOLOGY - GENERAL ORDERABLES [facility] [place] [address] * (ABNORMAL) Urinalysis Microscopic Exam (10/13/2021 11:04 AM EST) RBC, Urine 15(H) 0 - 3 /HPF [facility] WBC, Urine >100(H) 0 - 3 /HPF [facility] Bacteria, Urine Rare(A) None /HPF [facility] Budding Yeast, Urine Few(A) None /HPF [facility] Squamous Epithelial Cells Raw Data, Urine 3 <=4 /HPF [facility] Hyaline Casts, Urine 2 0 - 2 /LPF [facility] Clean Catch Urine 10/13/2021 11:04 AM EST 10/13/2021 11:15 AM EST Narrative Resulting Agency Comment Spec In Lab Jose C Skaggs MD URINE ORDERAB LES [facility] [place] [address] * (ABNORMAL) Urinalysis with reflex Culture (10/13/2021 11:04 AM EST) Glucose, Urine Dipstick 100(A) Negative mg/dL [facility] Protein, Urine Dipstick 30(A) Negative mg/dL [facility] Bilirubin, Urine Dipstick Negative Negative mg/dL [facility] Comment: Clinical correlation required for positive Urine Bilirubin results as false positive may occur with some drugs and drug related products. If a false positive is suspected a serum total bilirubin should be considered if clinically indicated. Urobilinogen, Urine Dipstick Normal Normal mg/dL [facility] pH, Urn (dipstick) 5.0 5.0 - 8.0 [facility] Blood, Urine Dipstick Small(A) Negative mg/dL [facility] Ketone, Urine Dipstick Negative Negative mg/dL [facility] Nitrite, Urine Dipstick Negative Negative [facility] Leukocytes, Urine Dipstick Large(A) Negative [facility] Appearance, Urine Dipstick Turbid(A) Clear [facility] Specific [place]ann Urine Automated 1.013 1.005 - 1.030 [facility] Color, Urine Dipstick Yellow Yellow [facility] Reflex to Culture Yes [facility] Clean Catch Urine 10/13/2021 11:04 AM EST 10/13/2021 11:15 AM EST Narrative Resulting Agency Comment Spec In Lab Romario Womack Jr., MD URINE ORDERABLES [facility] [place] [address] * POCT Fingerstick Glucose (10/13/2021) Glucose, POC 124 60 - 199 mg/dl Comment:RN notified 10/13/2021 Romario Womack Jr., MD POINT OF CARE TEST ORDERABLES documented in this encounter Visit Diagnoses Diagnosis History of renal stone ~ Personal history of urinary calculi documented in [...] 100 mL infusion (COMPLETED) 2 g, Intravenous, PIPE CREW FOREMAN TO O.R., 1 dose, On Sat10/13/21 at [...] Routine documented in this encounter Care Teams Launch Leader Relationship Specialty Start Date End Date David Massey MD [address] [place] [address] PCP - General Emergency Medicine 03/31/21 documented as of this encounter
--- OUTSIDE RECORDS SUMMARY | 2024-06-09 09:18 | XMS_ITS | Encounter Summary ---
Author Organization [facility] Address [facility] [place] [address] Care Team Providers Care School Resource Officer Name Role Phone David Massey MD [...] Expiration Date Visits Re quested Visits Authorized [id number] 1 1 Encounter Details Date Type Department Care Team ([facility] Contact Info) Description 10/13/2021 11:10 AM EST - 10/13/2021 1:00 PM EST Surgery [place] [address] Romario Womack Jr., MD [facility] [place] [address] CYSTO, STENT PLACEMENT (WRVU 2.82) Social History [...] this encounter Discharge Instructions * Discharge Instructions* Joes Carter RN - 10/13/2021 11:21 AM EST [...] closest emergency room or call the hospital airline radio operator at [phone] and ask for physician geothermal production manager covering for your physician. Questions or problems after 5pm or on a weekend: Call the [facility] airline radio operator at and ask for the physician geothermal production manager covering for your doctor. At 11:30 am [...] pain medications The number for questions is [phone] before 5 PM weekdays and [phone] after 5 PM and weekends. Activity level: [...] stone in 2-3 weeks time. Please call [phone] if you do not hear from the [...] Latest Ref Range: Clear Turbid (A) Spec [place] UA Latest Ref Range: 1.005 - 1.030 [...] Latest Ref Range: <=4 /HPF 3 Yeast [place] UA Latest Ref Range: None /HPF Few (A) Culture Reflexed Unknown Yes Anticoagulation: Yes Past Medical History: Diagnosis Date ??? Blood disorder ??? Circulatory disease ??? Diabetes Past Surgical History: Procedure Laterality Date ??? CHOLECYSTECTOMY ??? PRO EXCISE EXCESS SKIN TISSUE, ABDOMEN N/A 05/17/2016 ABDOMINOPLASTY performed by Adis Membreno MD at [facility] MAIN OR ??? PRO LAP GASTRIC BYPASS/KEYSHA-EN-Y 02/08/2014 @LAPAROSCOPIC GASTROPLASTY, performed by Wally Pfeiffer MD at [facility] OR ??? PRO LAP, DIAGNOSTIC ABDOMEN 02/10/2014 LAPAROSCOPY, DIAGNOSTIC, ABDOMEN performed by Wally Pfeiffer MD at [facility] OR ??? PRO REPAIR INCISIONAL HERNIA, REDUCIBLE N/A 05/17/2016 REPAIR INITIAL INCISIONAL OR VENTRAL HERNIA REDUCIBLE [facility] ??? PRO UNLISTED LAPAROSCOPIC PROCEDURE ESOPHAGUS 02/08/2014 LAPAROSCOPIC REVISION OF DELROY FUNDOPLASTY performed by Wally Pfeiffer MD at [facility] OR ??? PRO UPPER GI ENDOSCOPY, BIOPSY 12/11/2013 UPPER GASTROINTESTINAL ENDOSCOPY,WITH BIOPSY SINGLE OR MULTIPLE performed by Wally Pfeiffer MDat [facility] ENDOSCOPY ??? PRO UPPER GI ENDOSCOPY, DIAGNOSTIC 12/25/2013 EGD, UPPER GI ENDOSCOPY performed by Wally Pfeiffer MD at [facility] ENDOSCOPY ??? PRO UPPER GI ENDOSCOPY, DIAGNOSTIC 02/08/2014 ENDOSCOPY, UPPER GI, DIAGNOSTIC, WITH OR WITHOUT SPECIMENS performed by Wally Pfeiffer MD at [facility] OR ??? TONSILLECTOMY ??? TOTAL KNEE ARTHROPLASTY [...] PM EST Brief Operative Note Patient Name: Eguene Purvis : [id number] MR#: [id number] Case Date: 10/13/2021 Surgeon: Surgeon(s) and Role: [...] Operative Note Patient Name: Eugene Purvis : [id number] MR#: [id number] Case Date: 10/13/2021 Surgeon: Surgeon(s) and Role: [...] 12:4 4 PM EST Cystourethroscopy, Ureter Catheter ([id number]) 10/13/2021 12:04 PM EST stone Cystoscopy, Insert Ureteral Stent ([id number]) 10/13/2021 12:04 PM EST stone URINALYSIS MICROSCOPIC [...] Greater than 50,000 cfu/mL Roxy glabrata (A) [facility] Gram Stain Many Neutrophils seen Moderate Yeast seen (A) [facility] Organism Roxy albicans(A) [facility] Organism Roxy glabrata(A) [facility] Organism Yeast(A) [facility] Cystoscopic Urine 10/13/2021 12:45 PM EST 10/13/2021 2:02 PM EST Comment:Left renal urine for culture and gram stain Narrative Resulting Agency Comment Spec In Lab Romario Womack Jr., MD MICROBIOLOGY - GEN ERAL ORDERABLES [facility] [place] [address] * (ABNORMAL) Urine culture Cystoscopic Urine (10/13/2021 12:44 PM EST) Urine Culture Greater than 50,000 cfu/mL Roxy glabrata 1,000-9,000 cfu/ml Roxy albicans (A) [facility] Organism Roxy glabrata(A) [facility] Organism Roxy albicans(A) [facility] Cystoscopic Urine 10/13/2021 12:44 PM EST 10/13/2021 2:01 PM EST Comment:Cystoscopic bladder urine for culture Narrative Resulting Agency Comment Spec In Lab Romario Womack Jr., MD MICROBIOLOGY - GEN ERAL ORDERABLES [facility] [place] [address] * (ABNORMAL) Urine culture (10/13/2021 11:04 AM EST) Urine Culture 10,000-49,00 0 cfu/ml Roxy glabrata 1,000-9,000 cfu/ml Roxy albicans 1,000-9,000 cfu/ml mixed mucosal red (A) [facility] Organism Roxy glabrata(A) [facility] Organism Roxy albicans(A) [facility] Clean Catch Urine 10/13/2021 11:04 AM EST 10/13/2021 2:26 PM EST Narrative Resulting Agency Comment Spec In Lab Jose C Skaggs MD MICROBIOLOGY - GENERAL ORDERABLES [facility] [place] [address] * (ABNORMAL) Urinalysis Microscopic Exam (10/13/2021 11:04 AM EST) RBC, Urine 15(H) 0 - 3 /HPF [facility] WBC, Urine >100(H) 0 - 3 /HPF [facility] Bacteria, Urine Rare(A) None /HPF [facility] Budding Yeast, Urine Few(A) None /HPF [facility] Squamous Epithelial Cells Raw Data, Urine 3 <=4 /HPF [facility] Hyaline Casts, Urine 2 0 - 2 /LPF [facility] Clean Catch Urine 10/13/2021 11:04 AM EST 10/13/2021 11:15 AM EST Narrative Resulting Agency Comment Spec In Lab Jose C Skaggs MD URINE ORDERAB LES [facility] [place] [address] * (ABNORMAL) Urinalysis with reflex Culture (10/13/2021 11:04 AM EST) Glucose, Urine Dipstick 100(A) Negative mg/dL [facility] Protein, Urine Dipstick 30(A) Negative mg/dL [facility] Bilirubin, Urine Dipstick Negative Negative mg/dL [facility] Comment: Clinical correlation required for positive Urine Bilirubin results as false positive may occur with some drugs and drug related products. If a false positive is suspected a serum total bilirubin should be considered if clinically indicated. Urobilinogen, Urine Dipstick Normal Normal mg/dL [facility] pH, Urn (dipstick) 5.0 5.0 - 8.0 [facility] Blood, Urine Dipstick Small(A) Negative mg/dL [facility] Ketone, Urine Dipstick Negative Negative mg/dL [facility] Nitrite, Urine Dipstick Negative Negative [facility] Leukocytes, Urine Dipstick Large(A) Negative [facility] Appearance, Urine Dipstick Turbid(A) Clear [facility] Specific [place] Urine Automated 1.013 1.005 - 1.030 [facility] Color, Urine Dipstick Yellow Yellow [facility] Reflex to Culture Yes [facility] Clean Catch Urine 10/13/2021 11:04 AM EST 10/13/2021 11:15 AM EST Narrative Resulting Agency Comment Spec In Lab Romario Womack Jr., MD URINE ORDERABLES [facility] [place] [address] * POCT Fingerstick Glucose (10/13/2021) Glucose, POC [...] 100 mL infusion (COMPLETED) 2 g, Intravenous, MACHINE STEMMER TO O.R., 1 dose, On Sat10/13/21 at [...] Routine documented in this encounter Care Teams School Resource Officer Relationship Specialty Start Date End Date David Massey MD [address] [place] [address] PCP - General Emergency Medicine 03/31/21 documented as of this encounter
--- OUTSIDE RECORDS SUMMARY | 2024-06-09 09:18 | XMS_ITS | Encounter Summary ---
[place] [address] Care Team Providers Care Statistical Assistant Name Role Phone David Massey MD Primary Care Provider [phone] Reason for Referral * Consultation (Routine) - Closed Specialty Diagnoses / Procedures Referred By Sonal dawson Referred To Contact Urology Diagnoses Ureterolithiasis Urothelial carcinoma of left distal ureter David Massey MD [address] [place] [address] [facility] [place] [address] Referral ID Status Reason Start Date Expiration Date V isits Requested Visits Authorized [id number] Closed Consult, Test & Treat PCP Updated and/or Approved 01/04/2022 01/04/2023 12 12 Encounter Details Date Type Department Care Team (Latest Contact Info) Description 01/04/2022 Transcribe Orders eDH Incoming Referrals [phone] David Massey MD [address] [place] [id number] Ureterolithiasis; Urothelial carcinoma of left distal [...] as of this encounter Plan of Treatment Scheduled Referrals Name Type Priority Associated Diagnoses Orde r Schedule Referral to Urology Outpatient Referral Routine Ureterolithiasis Urothelial carcinoma of left distal ureter Ordered: 01/04/2022 documented as of this encounter Visit Diagnoses Diagnosis Ureterolithiasis Calculus of ureter 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
--- OUTSIDE RECORDS SUMMARY | 2024-06-09 09:18 | XMS_ITS | Encounter Summary ---
Author Organization [facility] [place] [address] Care Team Providers Care Inbound Call Center Agent Name Role Phone David Massey MD Primary Care Provider [phone] Reason for Visit * Diagnostic Test (Routine) - Closed Specialty Diagnoses / Procedures Referred By Sonal dawson Referred To Contact Diagnoses Leg edema Procedures Venous Valvular Incomp, Bilat Legs Yanira Ha, [facility] [place] [address] [facility] Vascular [facility] [address] [address] Referral ID Status Reason Start Date Expiration Date V isits Requested Visits Authorized [id number] Closed Specialty Service Requested 12/05/2021 12/05/2022 1 1 Encounter Details Date Type Department Care Team (Late st Contact Info) Description 01/10/2022 10:00 AM EDT Tech [place] [address] Estefany [place] Leg edema Social History Tobacco [...] Text Report Department: Vascular Surgery Lab Patient: [id number] (EUGENE PURVIS) CPT: 95975 Referring Physician: YANIRA HA APRN ?? Indications: [...] Report [facility] 01/10/2022 9:36 AM EDT Yanira Floresman WET END HELPER VASCULAR ORDERABLE S [facility] documented in this encounter Visit Diagnoses Diagnosis Leg edema Edema documented in this encounter Care Teams Inbound Call Center Agent Relationship Specialty Start Date End Date David Massey MD [address] [place] [address] PCP - General Emergency Medicine 03/31/21 documented as of this encounter
--- OUTSIDE RECORDS SUMMARY | 2024-06-09 09:18 | XMS_ITS | Encounter Summary ---
Author Organization [facility] Address [facility] [place] [address] Care Team Providers Care Coal Tram Driver Name Role Phone Dominic Restrepo MD Primary Care Provider [phone] Encounter Details Date Type Department Care Team (Late st Contact Info) Description 03/25/2019 2:38 PM EDT - 03/25/2019 11:59 PM EDT Hospital Encounter XRay at [address] [place] [address] Amish Han MD [facility] [place] [address] Right knee pain, unspecified chronicity Discharge Disposition: [...] XR Knee Standing Alignment AP Lat [place] Right (03/25/2019 3:14 PM EDT) Anatomical Region Laterality Modality Right Digital Radiogra phy Impressions 03/25/2019 4:24 PM EDT No complication or change involving the knee prostheses. Thank you for letting us participate in the care of this patient. For questions regarding this report, please contact the number below. ? Electronically signed by: Rafael Gaitan [facility] ([phone]), at 03/25/2019 4:24 PM Narrative 03/25/2019 4:24 [...] this report, please contact the number below. Amish Han MD IMG DX ORDERABLES documented in this encounter Visit Diagnoses Diagnosis Right knee pain, unspecified chronicity documented in this encounter Care Teams Coal Tram Driver Relationship Specialty Start Date End Date Dominic Restrepo MD [address] [place] [address] PCP - General Family Medicine 04/22/17 03/30/21 documented as of this encounter
--- OUTSIDE RECORDS SUMMARY | 2024-06-09 09:18 | XMS_ITS | Encounter Summary ---
[place] [address] Care Team Providers Care Stave Hewer Name Role Phone Dominic Restrepo MD Primary Care Provider [phone] Encounter Details Date Type Department Care Team (Late st Contact Info) Description 06/24/2018 Telephone [place] [id number] Ansley Hebert Social History Tobacco Use Types Packs/Day Years [...] on filedocumented in this encounter Care Teams Stave Hewer Relationship Specialty Start Date End Date Dominic Restrepo MD [address] [place] [address] PCP - General Family Medicine 04/22/17 03/30/21 documented as of this encounter
--- OUTSIDE RECORDS SUMMARY | 2024-06-09 09:18 | XMS_ITS | Encounter Summary ---
Author Organization [facility] [place] [address] Care Team Providers Care Belt Weaver Name Role Phone David Massey MD Primary Care Provider [phone] Encounter Details Date Type Department Care Team (Late st Contact Info) Description 12/03/2022 1:20 PM EST Ancillary Procedure [place] [address] Constantine Crenshaw MD [facility] [place] [address] Social History Tobacco Use Types Packs/Day Years [...] MR Head (12/03/2022 1:16 PM EST) Narrative [facility] - 12/03/2022 1:16 PM EST This exam is auto-finalizing. It's purpose is for storage only. Constantine Crenshaw MD IMG FILM LIBRARY O RDERABLES [place], [place] documented in this encounter Visit Diagnoses Not on filedocumented in this encounter Care Teams Belt Weaver Relationship Specialty Start Date End Date David Massey MD [address] [place] [address] PCP - General Emergency Medicine 03/31/21 documented as of this encounter
--- OUTSIDE RECORDS SUMMARY | 2024-06-09 09:18 | XMS_ITS | Encounter Summary ---
[place] [address] Care Team Providers Care Operations Expert Name Role Phone David Massey MD Primary Care Provider [phone] Reason for Visit * Consultation (Routine) - Closed Specialty Diagnoses / Procedures Referred By Sonal dawson Referred To Contact Vascular Surgery Diagnoses Chronic venous insufficiency David Massey MD [address] [place] [address] [facility] [place] [address] [address] Referral ID Status Reason Start Date Expiration Date V isits Requested Visits Authorized [id number] Closed Consult, Test & Treat PCP Updated and/or Approved 12/05/2021 12/05/2022 12 12 Encounter Details Date Type Department Care Team ([facility] st Contact Info) Description 01/10/2022 1:00 PM EDT Office [place] [address] Wally López III, MD [address] [place] [address] [place] [address] Venous insufficiency of both lower extremities; Venous [...] years. He denies bleeding events. Echocardiogram at [facility] 2013 was technically difficult, but showed normal [...] Disp: , Rfl: ??? OneTouch Ultra2 Meter [facility], USE DIRECTED FOUR TIMES A DAY, Disp: [...] Visit from 01/10/2022 in Vascular Surgery at [facility] Weight 99.8 kg (220 lb) [reported] Height [...] improve his situation there. That certainly may shredding machine knife changer time and I will periodically reevaluate the [...] this in the operating room either at [facility] or [facility], where we perform many of our venous [...] laterality documented in this encounter Care Teams Operations Expert Relationship Specialty Start Date End Date David Massey MD [address] [place] [address] PCP - General Emergency Medicine 03/31/21 documented as of this encounter
--- OUTSIDE RECORDS SUMMARY | 2024-06-09 09:18 | XMS_ITS | Encounter Summary ---
Author Organization [facility] Address [facility] [place] [address] Care Team Providers Care Superintendent Concrete Mixing Plant Name Role Phone David Massey MD Primary Care Provider [phone] Reason for Visit * Auth/Cert Specialty Diagnoses / Procedures Referred By Sonal dawson Referred To Contact Diagnoses Left renal stone LEFT STONE Procedures PRO CYSTO/URETERO/PYELOSCOPY W/LITHOTRIPSY CYSTOURETEROSCOPY, LITHOTRIPSY (WRVU 7.5) MODIFIER HOLMIUM LASER Referral ID Status Reason Start Date Expiration Date Visits Re quested Visits Authorized [id number] 1 1 Encounter Details Date Type Department Care Team (Latest Contact Info) Description 03/09/2022 11:40 AM EDT - 03/09/2022 3:40 PM EDT Hospital Encounter [place] [address] Celia Womack Jr., MD [facility] [place] [address] Nephrolithiasis Discharge Disposition: Home Social History Tobacco [...] closest emergency room or call the hospital braze operator at [phone] and ask for physician ammunition assembly i laborer covering for your physician. Questions or problems after 5pm or on a weekend: Call the [facility] braze operator at and ask for the physician ammunition assembly i laborer covering for your doctor. * Patient Instructions* Paulette Pickard MD - 03/08/2022 11:52 AM EDT Discharge Instructions after Cystoscopy Call your doctor for: Fevers greater than 101.3F Severe nausea or vomiting Increasing pain not controlled by pain medications Inability to urinate The number for questions is [phone] before 5 PM weekdays and [phone] after 5 PM and weekends if questions [...] renal ultrasound before your appointment. Please call [phone] if you do not receive your appointment. [...] bid x7 days and Keflex 500mg tid k23sset. He presents today for cystoscopy, left ureteroscopy [...] performed by Celia Womack Jr., MD at [facility] ??? PRO CYSTOURETHROSCOPY, URETER CATHETER Left 10/13/2021 CYSTO, RETROGRADE, URETEROPYELOGRAPHY (WRVU 2.37) performed by Celia Womack Jr., MD at [facility] ??? PRO EXCISE EXCESS SKIN TISSUE, ABDOMEN N/A 05/17/2016 ABDOMINOPLASTY performed by Adis Membreno MD at [facility] OR ??? PRO LAP GASTRIC BYPASS/KEYSHA-EN-Y 02/08/2014 @LAPAROSCOPIC GASTROPLASTY, performed by Wally Pfeiffer MD at [facility] OR ??? PRO LAP, DIAGNOSTIC ABDOMEN 02/10/2014 LAPAROSCOPY, DIAGNOSTIC, ABDOMEN performed by Wally Pfeiffer MD at [facility] OR ??? PRO REPAIR INCISIONAL HERNIA, REDUCIBLE N/A 05/17/2016 REPAIR INITIAL INCISIONAL OR VENTRAL HERNIA REDUCIBLE [facility] ??? PRO UNLISTED LAPAROSCOPIC PROCEDURE ESOPHAGUS 02/08/2014 LAPAROSCOPIC REVISION OF DELROY FUNDOPLASTY performed by Wally Pfeiffer MD at [facility] OR ??? PRO UPPER GI ENDOSCOPY, BIOPSY 12/11/2013 UPPER GASTROINTESTINAL ENDOSCOPY,WITH BIOPSY SINGLE OR MULTIPLE performed by Wally Pfeiffer MDat [facility] ??? PRO UPPER GI ENDOSCOPY, DIAGNOSTIC 12/25/2013 EGD, UPPER GI ENDOSCOPY performed by Wally Pfeiffer MD at [facility] ??? PRO UPPER GI ENDOSCOPY, DIAGNOSTIC 02/08/2014 ENDOSCOPY, UPPER GI, DIAGNOSTIC, WITH OR WITHOUT SPECIMENS performed by Wally Pfeiffer MD at [facility] OR ??? TONSILLECTOMY ??? TOTAL [...] Operative Note Patient Name: Eugene Rueda : [id number] MR#: [id number] Case Date: 03/09/2022 Surgeon: Surgeon(s) and Role: [...] Jr., MD - 03/09/2022 2:17 PM EDT [facility] Operative Note Patient Name: Eugene Rueda : [id number] MR#: [id number] Case Date: 03/09/2022 Surgeon: Surgeon(s) and Role: [...] sample ultimately reflexed to grow 10,000-49,000 cfu/ml Royx glabrata, 1,000-9,000 cfu/ml Roxy albicans, 1,000-9,000 cfu/ml MMF. His cystoscopic bladder urine grew > 50,000 cfu/mL Roxy glabrata and 1,000- 9,000 cfu/ml Roxy albicans. His left renal urine grew > 50,000 cfu/mL Roxy albicans and >50,000 cfu/mL Roxy glabrata. He was treated with Diflucan 100mg bid x7 days and Keflex 500mg tid [id number]. ?? He presents today for cystoscopy, left [...] CULTURE Routine 03/09/2022 2:47 PM EDT Cystourethroscopy (80720) 2021 1:57 PM EDT LEFT STONE documented [...] - GEN ERAL ORDERABLES [facility] [place] [address] documented in this encounter Visit Diagnoses Diagnosis [...] Routine 1222 (Given - Provid er: Kelsie P [place], RN) ceFAZolin (Ancef) 2 g in dextrose 5% 100 mL infusion (COMPLETED) 2 g, Intravenous, SUPERVISOR FISH BAIT PROCESSING TO O.R., 1 dose, On Sat03/09/22 at 1215, Administer over 30 Minutes, Day of Surgery (Day of Procedure), Indication for (Active or Suspected): Prophylaxis 1356 (Given - Provid er: Odalis Montes CRNA) fluconazole (Diflucan) 400 mg in sodium chloride 0.9% 200 mL infusion (COMPLETED) 400 mg, Intravenous, SUPERVISOR FISH BAIT PROCESSING TO O.R., 1 dose, On Sat03/09/22 at [...] CRNA) documented in this encounter Care Teams Superintendent Concrete Mixing Plant Relationship Specialty Start Date End Date David Massey MD [address] [place] [address] PCP - General Emergency Medicine 03/31/21 documented as of this encounter
--- OUTSIDE RECORDS SUMMARY | 2024-06-09 09:18 | XMS_ITS | Encounter Summary ---
Author Organization [facility] Address [facility] [place] [address] Care Team Providers Care Physical Chemistry Professor Name Role Phone David Massey MD Primary Care Provider [phone] Reason for Referral * Consultation (Routine) - Closed Specialty Diagnoses / Procedures Referred By Sonal dawson Referred To Contact Urology Diagnoses Retention of urine, unspecified ? SURGERY FOR URINARY RETENTION Tamir Osuna MD [address] [place] [address] Mesfin Pina MD [facility] [place] [address] Referral ID Status Reason Start Date Expiration Date V isits Requested Visits Authorized [id number] Closed Consult, Test & Treat PCP Updated and/or Approved 06/12/2023 06/11/2024 6 6 Encounter Details Date Type Department Care Team (Latest Contact Info) Description 06/12/2023 Transcribe Orders eDH Incoming Referrals [phone] Tamir Osuna MD [address] [place], [place] [id number] Retention of urine, unspecified Social History Tobacco [...] unspecified documented in this encounter Care Teams Physical Chemistry Professor Relationship Specialty Start Date End Date David Massey MD [address] [place] [address] PCP - General Emergency Medicine 03/31/21 documented as of this encounter
--- OUTSIDE RECORDS SUMMARY | 2024-06-09 09:18 | XMS_ITS | Encounter Summary ---
Author Organization [facility] Address [facility] [place] [address] Care Team Providers Care Strategic Intelligence Officer Name Role Phone David Massey MD Primary Care Provider [phone] Encounter Details Date Type Department Care Team (Late st Contact Info) Description 12/03/2022 [place] [address] Constantine Crenshaw MD [facility] [place] [address] Social History Tobacco Use Types Packs/Day Years [...] 12/03/2022 1:[address] Jacome at [facility] called about this 71 yo M admitted [...] on filedocumented in this encounter Care Teams Strategic Intelligence Officer Relationship Specialty Start Date End Date David Massey MD [address] [place] [address] PCP - General Emergency Medicine 03/31/21 documented as of this encounter
--- OUTSIDE RECORDS SUMMARY | 2024-06-09 09:18 | XMS_ITS | Encounter Summary ---
Author Organization [facility] Address [facility] [place] [address] Care Team Providers Care Compensator Name Role Phone David Massey MD Primary Care Provider [phone] Encounter Details Date Type Department Care Team (Late st Contact Info) Description 10/10/2021 [place] [address] Jose C Skaggs MD [facility] [place] [address] Social History Tobacco Use Types Packs/Day Years [...] Dr. Womack. Patient will give sample at [facility] today. Jose C Skaggs MD documented in this encounter Plan of Treatment Not on file documented as of this encounter Visit Diagnoses Diagnosis Recurrent nephrolithiasis- Primary Calculus of kidney documented in this encounter Care Teams Compensator Relationship Specialty Start Date End Date David Massey MD [address] [place] [address] PCP - General Emergency Medicine 03/31/21 documented as of this encounter
--- OUTSIDE RECORDS SUMMARY | 2024-06-09 09:18 | XMS_ITS | Encounter Summary ---
Author Organization [place] [address] Care Team Providers Care Middleware Developer Name Role Phone David Massey MD Primary Care Provider [phone] Encounter Details Date Type Department Care Team ([facility] Contact Info) Description 05/23/2022 Telephone [place] [phone] Claire Stuart Social History Tobacco Use Types [...] on filedocumented in this encounter Care Teams Middleware Developer Relationship Specialty Start Date End Date David Massey MD [address] [place] [address] PCP - General Emergency Medicine 03/31/21 documented as of this encounter
--- OUTSIDE RECORDS SUMMARY | 2024-06-09 09:18 | XMS_ITS | Encounter Summary ---
Author Organization [facility] [place] [address] Care Team Providers Care Hip Hop Dancer Name Role Phone David Massey MD Primary Care Provider [phone] Reason for Referral * Consultation (Routine) - Closed Specialty Diagnoses / Procedures Referred By Sonal dawson Referred To Contact Vascular Surgery Diagnoses Chronic venous insufficiency David Massey MD [address] [place] [address] [facility] [address] [place] [address] Referral ID Status Reason Start Date Expiration Date V isits Requested Visits Authorized [id number] Closed Consult, Test & Treat PCP Updated and/or Approved 12/05/2021 12/05/2022 12 12 Encounter Details Date Type Department Care Team (Latest Contact Info) Description 12/05/2021 Trans[place] [address] David Massey MD [address] [place] [address] Chronic venous insufficiency Social History Tobacco [...] insufficiency documented in this encounter Care Teams Hip Hop Dancer Relationship Specialty Start Date End Date David Massey MD [address] [place] [address] PCP - General Emergency Medicine 03/31/21 documented as of this encounter
--- OUTSIDE RECORDS SUMMARY | 2024-06-09 09:18 | XMS_ITS | Encounter Summary ---
[place] [address] Care Team Providers Care National Accounts Recruiter Name Role Phone David Massey MD Primary Care Provider [phone] Encounter Details Date Type Department Care Team (Late st Contact Info) Description 03/20/2022 Telephone [place] [phone] Claire Stuart Social History Tobacco Use Types [...] López to be on 05/02/22. Letter sent. [facility] for call back to schedule Surgery with Dr. López documented in this encounter Plan of Treatment Not on file documented as of this encounter Visit Diagnoses Not on filedocumented in this encounter Care Teams National Accounts Recruiter Relationship Specialty Start Date End Date David Massey MD [address] [place] [address] PCP - General Emergency Medicine 03/31/21 documented as of this encounter
--- OUTSIDE RECORDS SUMMARY | 2024-06-09 09:18 | XMS_ITS | Encounter Summary ---
[place] [address] Care Team Providers Care Health Communications Specialist Name Role Phone David Massey MD Primary Care Provider [phone] Reason for Referral * Diagnostic Test (Routine) - Closed Specialty Diagnoses / Procedures Referred By Sonal dawson Referred To Contact Cardiology Diagnoses Cerebrovascular accident (CVA), unspecified mechanism Chronic atrial fibrillation Procedures Mobile Kamari Elam MD [address] [place] [address] [facility] [place] [address] Referral ID Status Reason Start Date Expiration Date V isits Requested Visits Authorized [id number] Closed Specialty Service Requested 12/04/2022 12/04/2023 1 1 Reason for Visit * Diagnostic Test (Routine) - Closed Specialty Diagnoses / Procedures Referred By Sonal dawson Referred To Contact Cardiology Diagnoses Cerebrovascular accident (CVA), unspecified mechanism Chronic atrial fibrillation Procedures Mobile Kamari Elam MD [address] [place] [address] [facility] [place] [address] Referral ID Status Reason Start Date Expiration Date V isits Requested Visits Authorized [id number] Closed Specialty Service Requested 12/04/2022 12/04/2023 1 1 Encounter Details Date Type Department Care Team (Latest Contact Info) Description 12/04/2022 2:30 PM EST - 12/04/2022 11:59 PM EST Hospital Encounter [place] [address] Kamari Fontana MD [address] [place] [address] Cerebrovascular accident (CVA), unspecified mechanism; Chronic atrial [...] COMPLETE (12/04/2022 4:09 PM EST) EF 68 HEARTLandis+Gyr SYSTEM Anatomical Region Laterality Modality Other 12/04/2022 2:41 PM EST Narrative 12/04/2022 4:19 PM EST ? Echocardiogram Report Name: EUGENE PURVIS ? Study Date: 12/04/2022 02:41 PMBP: 133/73 mmHg ?Patient Location: 4A 0000 : 1950 ?Height: 170 cm ? Account: [id number] Age: 71 yrs ?Weight: 96 kg Gender: Male ? BSA: 2.1 m2 Ordering Physician: KAMARI FONTANA Referring Physician: KAMARI FONTANA Performed By: Stormy Santos RDCS Reason For Study: Stroke Exam Location: [facility]. Interpretation Summary Technically difficult study. The left [...] body of report for additional details. Procedure Complete-15305. Image enhancement Optison was used for left [...] Cole MD - 12/04/2022 Echocardiogram Report Name: CALLIERajeevEUGENE Study Date: 12/04/2022 02:41 PMBP:133/73 mmHg Patient Location: 0000 : 1950 Height: 170 cmAccount: [id number] Age: 71 yrs Weight: 96 kg Gender: Male BSA: 2.1 m2 Ordering Physician: KAMARI FONTANA Referring Physician: KAMARI FONTANA Performed By: Stormy Santos RDCS Reason For Study: Stroke Exam Location: [facility]. Interpretation Summary Technically difficult study. The left ventricular size and function are normal with LVEF of 68% bySimpson's biplane and no wall motion abnormalities. The right ventricle is moderately dilated with mildly reduced function.PASP 36 mm Hg (assuming RA pressure 8 mm Hg). The atria are severley dilated. There is moderate tricuspid regurgitation. Please see the body of report for additional details. Procedure Complete-[id number]. Image enhancement Optison was used for left [...] fibrillation documented in this encounter Care Teams Health Communications Specialist Relationship Specialty Start Date End Date David Massey MD [address] [place] [address] PCP - General Emergency Medicine 03/31/21 documented as of this encounter
--- OUTSIDE RECORDS SUMMARY | 2024-06-09 09:18 | XMS_ITS | Clinical Summary ---
Author Organization [facility] Address [facility] [place] [address] Care Team Providers Care Physicist Nuclear Name Role Phone David Massey MD Primary Care Provider [phone] Allergies No known active allergies Medications Medication [...] 03/09/2022 12:14 PM EDT Plan of Treatment Health Maintenance Due Date [...] 12/08/2015, 02/12/2014, Additional history exists Covid-19 Vaccine ( - 2022-2 4 season) 2023 Influenza (Flu) vaccine (1 o f 1 - Influenza standard series) 06/07/2024 Medical Devices Implanted Type Area Production Cost Estimator Device Identifier Shelf Expiration Date Model / Serial / Lot Mesh,Ventrio, St,Ovl,5.4x7i n ([id number]) - [id number] Implanted:Qty : 1 on 05/17/2016 by Stephanie Butcher MD at [facility] IMPLANTS Abdomen [employer] - 1825 01/15/2018 [id number] / / [id number] Explanted Type Area Production Cost Estimator Device Identifier Shelf Expiration Date Model / Serial / Lot Stent Ureteral 7phd25ut Dbl Pgtl Soft Ptfe Tria ([id number]) - [id number] Implanted:Qty : 1 on 10/13/2021 by Romario Womack Jr., MD at [facility] Explanted:Qty : 1 on 03/09/2022 by Romario Womack Jr., MD IMPLANTS Left: Ureter Stretchr - Catbird [id number] 04/11/2024 [id number] / / [id number] Procedures Procedure Name Priority Date/Time Associated Diagnosis Comments COMPREHENSIVE METABOLIC PANEL Routine 04/22/2017 11:18 AM EDT Status post [...] panel (non-fasting) (04/22/2017 11:18 AM EDT) Glucose 123 65 - 199 mg/dL [facility] Comment:Diabetes: >=200 mg/d L plus symptoms Blood Urea Nitrogen 23(H) 10 - 20 mg/dL [facility] Creatinine 1.05 0.80 - 1.50 mg/dL [facility] Comment: Please note that the pediatric reference intervals supplied above were not validated at [facility]. Results from pediatric patients should be interpreted in conjunction to the patient's age, height and muscle mass. Sodium 142 135 - 145 mmol/L [facility] Potassium 4.0 3.5 - 5.0 mmol/L [facility] Comment: Please note: ??Patients with WBC >100,000 may have falsely elevated Potassium levels. ??For accurate Potassium quantification in these patients send serum separator tube (gold top) for subsequent determinations. ??Contact the Clinical Chemistry Laboratory if there are any questions. Chloride 101 98 - 107 mmol/L [facility] Carbon Dioxide 25 22 - 31 mmol/L [facility] Anion Gap 16(H) 5 - 15 mmol/L [facility] Calcium 9.3 8.5 - 10.5 mg/dL [facility] Protein, Total 7.4 6.1 - 8.0 gm/dL [facility] Albumin 4.3 3.2 - 5.2 gm/dL [facility] Aspartate Aminotransferase 13 0 - 39 unit/L [facility] Alanine Aminotransferase 20 0 - 55 unit/L [facility] Alkaline Phosphatase 58 40 - 120 unit/L [facility] Bilirubin, Total 0.5 0.2 - 1.3 mg/dL [facility] Est Glomerular Filtration Rate >60 >=60 [facility] Comment: This estimated GFR [...] the following links into your internet browser. [email or web address] Blood specimen (specimen) 04/22/2017 11:18 AM EDT 04/22/2017 11:25 AM EDT Narrative Resulting Agency Comment Spec In Lab aNrda Allen [place] TROOPER CHEMISTRY ORDERAB LES [facility] [place] [address] * (ABNORMAL) Hemoglobin A1c (12/08/2015 11:50 AM EST) Hemoglobin A1c 6.9(H) 4.3 - 5.6 % [facility] Comment: Reference Range: 4.3 - [...] Mellitus, Diabetes Care 2013; 36: Suppl. 1, Z07-56 Estimated Average Glucose 151 mg/dL [facility] Comment: eAG equivalents for HbA1c percentages: HbA1c(%) ?eAG(mg/dL) 6.0 ?126 6.5 ?140 7.0 ?154 7.5 ?169 8.0 ?183 8.5 ?197 9.0 ?212 9.5 ?226 10.0 ? 240 Limitations: The eAG calculation has not been validated on women, individuals below 18 years old and above 70 years old, and individuals with hemoglobinopathies. Additional resources are available on the ADA website: [email or web address] Keyon MACHADO, Buddy J, Maynor R, et al. ??Translating the A1C assay into estimated average glucose values. ??Diabetes Care 2008:31(8):4410-3316. Blood specimen (specimen) 12/08/2015 11:50 AM EST 12/08/2015 11:58 AM EST Narrative Resulting Agency Comment Spec In Lab Wally Pfeiffer MD CHEMISTRY ORDERABLE S [facility] [place] [address] from Last 3 Months or Most Recently [...] is based on Patient wishes. Care Teams Physicist Nuclear Relationship Specialty Start Date End Date David Massey MD [address] [place] [address] PCP - General Emergency Medicine 03/31/21
--- OUTSIDE RECORDS SUMMARY | 2024-06-09 09:18 | XMS_ITS | Encounter Summary ---
Author Organization [facility] [place] [address] Care Team Providers Care Motor Vehicle Compliance Analyst Name Role Phone David Massey MD Primary Care Provider [phone] Encounter Details Date Type Department Care Team (Late Contact Info) Description 04/27/2022 Telephone [place] [phone] Adis Lubin RN Social History Tobacco Use [...] Farxiga and Jardiance x 3 days per [facility] Diabetes Medication Adjustment Guidelines. Patient states understanding of same. documented in this encounter Plan of Treatment Not on file documented as of this encounter Visit Diagnoses Not on filedocumented in this encounter Care Teams Motor Vehicle Compliance Analyst Relationship Specialty Start Date End Date David Massey MD [address] [place] [address] PCP - General Emergency Medicine 03/31/21 documented as of this encounter
--- OUTSIDE RECORDS SUMMARY | 2024-06-09 09:18 | XMS_ITS | Encounter Summary ---
Author Organization [facility] [place] [place] [address] Care Team Providers Care Replanting Machine Crewman Name Role Phone David Massey MD Primary Care Provider [phone] Encounter Details Date Type Department Care Team (Late st Contact Info) Description 12/03/2022 1:25 PM EST Ancillary [place] [address] Constantine Crenshaw MD [facility] [place] [address] Social History Tobacco Use Types Packs/Day Years [...] And Spine (12/03/2022 1:17 PM EST) Narrative [facility] - 12/03/2022 1:17 PM EST This exam is auto-finalizing. It's purpose is for storage only. Constantine Crenshaw MD IMG FILM LIBRARY O RDERABLES Performing Organization Address City/State/[facility] Co de Phone Number [place], [place] documented in this encounter Visit Diagnoses Not on filedocumented in this encounter Care Teams Replanting Machine Crewman Relationship Specialty Start Date End Date David Massey MD [address] [place] [address] PCP - General Emergency Medicine 03/31/21 documented as of this encounter
--- OUTSIDE RECORDS SUMMARY | 2024-06-09 09:18 | XMS_ITS | Encounter Summary ---
Author Organization [facility] [place] [address] Care Team Providers Care College Football Coach Name Role Phone Dominic Restrepo MD Primary Care Provider [phone] Reason for Referral * Physical Therapy (Routine) - Specialty Diagnoses / Procedures Referred By Sonal dawson Referred To Contact Diagnoses Status post bilateral knee replacements Marva Pedraza PA [facility] DR OR[place] [address] Referral ID Status Reason Start Date Expiration Date V isits Requested Visits Authorized [id number] Evaluate and Treat Non PCP 03/25/2019 09/21/2019 1 1 Reason for Visit * Reason Comments Right Knee Pain has bilat TKA DOS - increased pain * Consultation (Routine) - Closed Specialty Diagnoses / Procedures Referred By Sonal dwason Referred To Contact Orthopaedics Diagnoses RIGHT KNEE PAIN Self mail [facility] [address] [place] [address] Referral ID Status Reason Start Date Expiration Date V isits Requested Visits Authorized [id number] Closed Consult, Test & Treat 03/24/2019 03/23/2020 1 1 Encounter Details Date Type Department Care Team ([facility] st Contact Info) Description 03/25/2019 4:30 PM EDT [place] [address] Amish Han MD [facility] [place] [address] Status post bilateral knee replacements Social History [...] subsidence, loosening, or periprosthetic complication. Questionnaire Responses: [facility] Postop Visit 03/25/2019 PROMIS-10 General Health [...] - Choose Same Treatment Again - [facility] Response 03/25/2019 KOOS JR Scores 52.47 Spine [...] documented in this encounter Plan of Treatment Scheduled Referrals Name Type Priority Associated Diagnoses Orde r Schedule Referral to Physical Therapy Outpatient Referral Routine Status post bilateral knee replacements Ordered: 03/25/2019 documented as of this encounter Visit Diagnoses Diagnosis Status post bilateral knee replacements documented in this encounter Care Teams College Football Coach Relationship Specialty Start Date End Date Dominic Restrepo MD [address] [place] [address] PCP - General Family Medicine 04/22/17 03/30/21 documented as of this encounter
--- OUTSIDE RECORDS SUMMARY | 2024-06-09 09:18 | XMS_ITS | Encounter Summary ---
Author Organization [facility] [place] [address] Care Team Providers Care Arc Cutter Name Role Phone David Massey MD Primary Care Provider [phone] Encounter Details Date Type Department Care Team (Late st Contact Info) Description 03/31/2021 Orders [place] [address] Marychuy Ha APRN [facility] [place] [address] Leg edema Social History Tobacco Use Types [...] Edema documented in this encounter Care Teams Arc Cutter Relationship Specialty Start Date End Date David Massey MD [address] [place] [address] PCP - General Emergency Medicine 03/31/21 documented as of this encounter
--- OUTSIDE RECORDS SUMMARY | 2024-06-09 09:18 | XMS_ITS | Encounter Summary ---
Author Organization [facility] [place] [address] Care Team Providers Care Helix Coil Winder Name Role Phone David Massey MD Primary Care Provider [phone] Encounter Details Date Type Department Care Team (Late Contact Info) Description 05/28/2022 Telephone [place] [phone] Claire Stuart Social History Tobacco Use Types [...] on filedocumented in this encounter Care Teams Helix Coil Winder Relationship Specialty Start Date End Date David Massey MD [address] [place] [address] PCP - General Emergency Medicine 03/31/21 documented as of this encounter
--- OUTSIDE RECORDS SUMMARY | 2024-06-09 09:18 | XMS_ITS | Encounter Summary ---
Author Organization [facility] Address [facility] [place] [address] Care Team Providers Care Insurance Verification Clerk Name Role Phone David Massey MD Primary Care Provider [phone] Reason for Visit * Auth/Cert Specialty Diagnoses / Procedures Referred By Sonal dawson Referred To Contact Diagnoses Left renal stone LEFT STONE Procedures PRO CYSTO/URETERO/PYELOSCOPY W/LITHOTRIPSY CYSTOURETEROSCOPY, LITHOTRIPSY (WRVU 7.5) MODIFIER HOLMIUM LASER Referral ID Status Reason Start Date Expiration Date Visits Re quested Visits Authorized [id number] 1 1 Encounter Details Date Type Department Care Team (Late st Contact Info) Description 03/09/2022 1:56 PM EDT Anesthesia Event Outpatient [place] [address] Jt Vazquez MD [facility] [place] [address] Mesfin Walker MD [facility] [place] [address] Anesthesia Record Procedure Summary Procedure Name Responsible [...] 19 yulia 05/17/16 1006 by Krys Barrera, RN Drain/Device Site 05/17/16; 1008; Righ t; [...] IV Line - Single Lumen 03/09/22; 1220; nwke-eto-vjtodz catheter system; Anatomical Landmarks; 22 gauge, 3/4 [...] Procedure Summary Date: 03/09/22 Room / Location: [facility] [address] [place] [address] Anesthesia Start: 1356 Anesthesia Stop: 1451 Procedure: CYSTO, CYSTOURETHROSCOPY, DIAGNOSTIC (WRVU 2.23) (N/A Bladder) Diagnosis: (LEFT STONE) Surgeons: Romario Womack Jr., MD Responsible Provider: Jt Vazquez MD Anesthesia Type: general ASA Status: 3 All Anesthesia Providers: Anesthesiologist: Jt Vazquez MD SALES HUNTER: Odalis Montes CRNA Vitals Value Taken Time BP 104/57 03/09/22 1448 Temp 37 ??C (98.6 ??F) 03/09/22 1447 Pulse 82 03/09/22 1455 Resp 16 03/09/22 1447 SpO2 97 % 03/09/22 1455 Pain Level Vitals shown include unvalidated device data. Patient Location: PACU/[facility] Level of Consciousness: Awake and Alert Pain [...] performed by Romario Womack Jr., MD at [facility] ??? PRO CYSTOURETHROSCOPY, URETER CATHETER Left 10/13/2021 CYSTO, RETROGRADE, URETEROPYELOGRAPHY (WRVU 2.37) performed by Romario Womack Jr., MD at [facility] ??? PRO EXCISE EXCESS SKIN TISSUE, ABDOMEN N/A 05/17/2016 ABDOMINOPLASTY performed by Adis Membreno MD at [facility] OR ??? PRO LAP GASTRIC BYPASS/KEYSHA-EN-Y 02/08/2014 @LAPAROSCOPIC GASTROPLASTY, performed by Wally Pfeiffer MD at [facility] OR ??? PRO LAP, DIAGNOSTIC ABDOMEN 02/10/2014 LAPAROSCOPY, DIAGNOSTIC, ABDOMEN performed by Wally Pfeiffer MD at [facility] OR ??? PRO REPAIR INCISIONAL HERNIA, REDUCIBLE N/A 05/17/2016 REPAIR INITIAL INCISIONAL OR VENTRAL HERNIA REDUCIBLE [facility] ??? PRO UNLISTED LAPAROSCOPIC PROCEDURE ESOPHAGUS 02/08/2014 LAPAROSCOPIC REVISION OF DELROY FUNDOPLASTY performed by Wally Pfeiffer MD at [facility] OR ??? PRO UPPER GI ENDOSCOPY, BIOPSY 12/11/2013 UPPER GASTROINTESTINAL ENDOSCOPY,WITH BIOPSY SINGLE OR MULTIPLE performed by Wally Pfeiffer MDat [facility] ENDOSCOPY ??? PRO UPPER GI ENDOSCOPY, DIAGNOSTIC 12/25/2013 EGD, UPPER GI ENDOSCOPY performed by Wally Pfeiffer MD at [facility] ENDOSCOPY ??? PRO UPPER GI ENDOSCOPY, DIAGNOSTIC 02/08/2014 ENDOSCOPY, UPPER GI, DIAGNOSTIC, WITH OR WITHOUT SPECIMENS performed by Wally Pfeiffer MD at [facility] MAIN OR ??? TONSILLECTOMY ??? TOTAL KNEE [...] 5% 100 mL infusion 2 g, Intravenous, DIRECTOR MARKETING TO O.R., 1 dose, On Sat03/09/22 at [...] 0.9% 200 mL infusion 400 mg, Intravenous, DIRECTOR MARKETING TO O.R., 1 dose, On Sat03/09/22 at [...] mg documented in this encounter Care Teams Insurance Verification Clerk Relationship Specialty Start Date End Date David Massey MD [address] [place] [address] PCP - General Emergency Medicine 03/31/21 documented as of this encounter
--- OUTSIDE RECORDS SUMMARY | 2024-06-09 09:18 | XMS_ITS | Encounter Summary ---
[place] [address] Care Team Providers Care Type Copyist Name Role Phone Dominic Restrepo MD Primary Care Provider [phone] Encounter Details Date Type Department Care Team (Late st Contact Info) Description 04/22/2017 Telephone [place] [phone] Tracy Joy Social History Tobacco Use Types [...] 04/22/2017 2:55 PM EDT Received notes from [facility] dated 02/06/17, put in 's inbasket documented in this encounter Plan of Treatment Not on file documented as of this encounter Visit Diagnoses Not on filedocumented in this encounter Care Teams Type Copyist Relationship Specialty Start Date End Date Dominic Restrepo MD [address] [place] [address] PCP - General Family Medicine 04/22/17 03/30/21 documented as of this encounter
--- OUTSIDE RECORDS SUMMARY | 2024-06-09 09:18 | XMS_ITS | Encounter Summary ---
[place] [address] Care Team Providers Care Feeder Worker Power Unit Operator Name Role Phone David Massey MD Primary Care Provider [phone] Encounter Details Date Type Department Care Team (Late st Contact Info) Description 10/09/2021 11:00 AM EST TH Visit (TeleHealth) [place] [address] Social History Tobacco Use Types Packs/Day Years [...] on filedocumented in this encounter Care Teams Feeder Worker Power Unit Operator Relationship Specialty Start Date End Date David Massey MD [address] [place] [address] PCP - General Emergency Medicine 03/31/21 documented as of this encounter
--- OUTSIDE RECORDS SUMMARY | 2024-06-09 09:18 | XMS_ITS | Encounter Summary ---
Author Organization [facility] [place] [address] Care Team Providers Care Government Program Manager Name Role Phone David Massey MD Primary Care Provider [phone] Reason for Visit * Auth/Cert Specialty Diagnoses [...] Expiration Date Visits Re quested Visits Authorized [id number] 1 1 Encounter Details Date Type Department Care Team (Late st Contact Info) Description 10/13/2021 12:04 PM EST Anesthesia Event Out[place] [address] Onur Walker MD [facility] [place] [address] Naomie Graham [place] [address] Anesthesia Record Procedure Summary Procedure Name Responsible [...] 1141; median cubital vein (antecubital fossa), right; whty-xwg-nrrzjr catheter system; 20 gauge; distraction, tolerated well, appears comfortable; 10/13/21; 1328 10/13/21 1141 by Jose Carter RN 10/13/21 1328 by Aida Edwards [...] Procedure Summary Date: 10/13/21 Room / Location: [address] Anesthesia Start: 1204 Anesthesia Stop: 1300 Procedures: CYSTO, STENT PLACEMENT (WRVU 2.82) (Left Bladder) CYSTO, RETROGRADE, URETEROPYELOGRAPHY (WRVU 2.37) (Left Bladder) Diagnosis: (stone) Surgeons: Romario Womack Jr., MD Responsible Provider: Onur Walker MD Anesthesia Type: general ASA Status: 3 All Anesthesia Providers: Anesthesiologist: Onur Walker MD CORPORATE SAFETY DIRECTOR: Nereyda Pina CRNA Vitals Value Taken Time BP 107/78 10/13/21 1315 Temp 36.9 ??C (98.4 ??F) 10/13/21 1257 Pulse 77 10/13/21 1315 Resp 16 10/13/21 1315 SpO2 97 % 10/13/21 1315 Pain Level 0 10/13/21 1315 Patient Location: PACU/[facility] Level of Consciousness: Awake and [...] ABDOMINOPLASTY performed by Adis Membreno MD at [facility] OR ??? PRO LAP GASTRIC BYPASS/KEYSHA-EN-Y 02/08/2014 @LAPAROSCOPIC GASTROPLASTY, performed by Wally Pfeiffer MD at [facility] OR ??? PRO LAP, DIAGNOSTIC ABDOMEN 02/10/2014 LAPAROSCOPY, DIAGNOSTIC, ABDOMEN performed by Wally Pfeiffer MD at [facility] OR ??? PRO LAP, ESOPHAGUS, OTHER PROC 02/08/2014 LAPAROSCOPIC REVISION OF DELROY FUNDOPLASTY performed by Wally Pfeiffer MD at [facility] OR ??? PRO REPAIR INCISIONAL HERNIA, REDUCIBLE N/A 05/17/2016 REPAIR INITIAL INCISIONAL OR VENTRAL HERNIA REDUCIBLE [facility] ??? PRO UPPER GI ENDOSCOPY, BIOPSY 12/11/2013 UPPER GASTROINTESTINAL ENDOSCOPY,WITH BIOPSY SINGLE OR MULTIPLE performed by Wally Pfeiffer MDat [facility] ENDOSCOPY ??? PRO UPPER GI ENDOSCOPY, DIAGNOSTIC 12/25/2013 EGD, UPPER GI ENDOSCOPY performed by Wally Pfeiffer MD at [facility] ENDOSCOPY ??? PRO UPPER GI ENDOSCOPY, DIAGNOSTIC 02/08/2014 ENDOSCOPY, UPPER GI, DIAGNOSTIC, WITH OR WITHOUT SPECIMENS performed by Wally Pfeiffer MD at [facility] OR ??? TONSILLECTOMY ??? TOTAL [...] risks discussed with patient. Plan discussed with CORPORATE SAFETY DIRECTOR. Anesthesia Screening Note: Date and Time of Entry: 10/09/2021 12:10 PM Entered By: Naomie Graham APRN Hx of Anesthesia Problem: Hx Afib, DM, COPD Screening Visit Type: Telephone Call Additional/Outside Records Requested? Requested medical information from outside organization. From Where? PCP notes from [facility] Findings, Assessment and Plan: 70 y.o. male with a left renal stone presenting for pre-anesthesia consultation prior to ureteroscopy with laser lithotripsy and stent exchange with Dr. Womack on 10/13/21. MEDICAL HISTORY: Bladder cancer, Afib on eliquis, HTN, PVD, CARLOS A, DM SURGICAL HISTORY: cholecystectomy, keysha en y, partial colectomy ANESTHETIC HISTORY: Denies any history of anesthesia complications. Patient underwent ureteroscopy at [facility] on 06/08/21. A LMA placed without difficulty [...] No fever/chills. The patient was referred to [facility] for the second stage of his procedure [...] takes diltiazem, lisinopril and metoprolol. His PCP ([facility]) manages his Eliquis. His last echocardiogram [...] time. -Patient scheduled for surgery at the [facility]. Will review anesthesia records from June with [facility] anesthesiology team to determine if this is appropriate. Naomie Graham, MIGUEL 10/09/2021 documented in this encounter Plan of Treatment Not on file documented as of this encounter Visit Diagnoses Not on filedocumented in this encounter Administered Medications Inactive Administered Medications - up to 3 most recent administrations Medication Order MAR Action Action Date Dose Rate Site ceFAZolin (Ancef) 2 g in dextrose 5% 100 mL infusion 2 g, Intravenous, IT ANALYST TO O.R., 1 dose, On Sat10/13/21 [...] mg documented in this encounter Care Teams Government Program Manager Relationship Specialty Start Date End Date David Massey MD [address] [place] [address] PCP - General Emergency Medicine 03/31/21 documented as of this encounter
--- OUTSIDE RECORDS SUMMARY | 2024-06-09 09:18 | XMS_ITS | Encounter Summary ---
Author Organization [facility] [place] [address] Care Team Providers Care Lace Pinner Name Role Phone David Massey MD Primary Care Provider [phone] Encounter Details Date Type Department Care Team (Late st Contact Info) Description 12/26/2022 Telephone [place] [phone] Unknown None Social History Tobacco Use Types [...] Caller: Cezar If not PT/Relation to PT: [facility] Best number to reach caller: [phone] Reason for the Call: Checking on status of referral To check on the status oftheir referral: If not, what is the reason for their call: Previous Neurology Information Questions: Has the patient seen another Neurologist: No If yes, when and where: Has the patient had any imaging done: Yes If yes, when and where: 12/03/22 [facility] - CT Head & Spine 12/03/22 [facility] - MR Head documented in this encounter Plan of Treatment Not on file documented as of this encounter Visit Diagnoses Not on filedocumented in this encounter Care Teams Lace Pinner Relationship Specialty Start Date End Date David Massey MD [address] [place] [address] PCP - General Emergency Medicine 03/31/21 documented as of this encounter
--- OUTSIDE RECORDS SUMMARY | 2024-06-09 09:18 | XMS_ITS | Encounter Summary ---
[place] [address] Care Team Providers Care Dermatology Nurse Practitioner Name Role Phone David Massey MD Primary Care Provider [phone] Encounter Details Date Type Department Care Team (Late st Contact Info) Description 06/01/2021 Ancillary Procedure [place] [address] David Massey MD [address] [place], [place] [id number] Social History Tobacco Use Types Packs/Day Years [...] & Pelvis (06/01/2021 12:00 AM EDT) Narrative [facility] - 06/30/2021 1:47 PM EDT This exam is auto-finalizing. It's purpose is for storage only. David Massey MD [facility] FILM LIBRARY ORD ERABLES [place], [place] documented in this encounter Visit Diagnoses Not on filedocumented in this encounter Care Teams Dermatology Nurse Practitioner Relationship Specialty Start Date End Date David Massey MD [address] [place] [address] PCP - General Emergency Medicine 03/31/21 documented as of this encounter
--- OUTSIDE RECORDS SUMMARY | 2024-06-09 09:18 | XMS_ITS | Encounter Summary ---
Author Organization [facility] Address [facility] [place] [address] Care Team Providers Care Payroll Specialist Name Role Phone David Massey MD Primary Care Provider [phone] Encounter Details Date Type Department Care Team (Late Contact Info) Description 03/08/2022 [place] [phone] Paulette Pickard MD [facility] [place] [address] Social History Tobacco Use Types Packs/Day Years [...] urine sample drop. Pt will submit to [facility] today documented in this encounter Plan of Treatment Not on file documented as of this encounter Visit Diagnoses Diagnosis Lower urinary tract symptoms (LUTS) Other symptoms involving urinary system documented in this encounter Care Teams Payroll Specialist Relationship Specialty Start Date End Date David Massey MD [address] [place] [address] PCP - General Emergency Medicine 03/31/21 documented as of this encounter
--- OUTSIDE RECORDS SUMMARY | 2024-06-09 09:18 | XMS_ITS | Encounter Summary ---
Author Organization [facility] Address [facility] [place] [address] Care Team Providers Care Road Roller Operator Name Role Phone Dominic Restrepo MD Primary Care Provider [phone] Encounter Details Date Type Department Care Team (Latest Contact Info) Description 09/29/2017 - 09/29/2017 11:59 PM EST Hospital Encounter [place] [address] Adis Franco MD [facility] [place] [address] Discharge Disposition: Home Social History Tobacco Use [...] DX Shoulder (09/29/2017 12:00 AM EST) [facility]25[facility] 11:14 AM EDT This exam is for storage only and is auto-finalizing. Adis Franco MD IMG FILM LIBRARY ORD ERABLES [place], [place] documented in this encounter Visit Diagnoses Not on filedocumented in this encounter Care Teams Road Roller Operator Relationship Specialty Start Date End Date Dominic Restrepo MD [address] [place] [address] PCP - General Family Medicine 04/22/17 03/30/21 documented as of this encounter
--- OUTSIDE RECORDS SUMMARY | 2024-06-09 09:18 | XMS_ITS | Encounter Summary ---
Author Organization [facility] Address [facility] [place] [address] Care Team Providers Care Online Producer Name Role Phone David Massey MD Primary Care Provider Encounter Details Date Type Department Care Team (Late st Contact Info) Description 05/23/2022 9:40 AM EDT Anesthesia Event [place] [address] Yolis Rodriguez MD [facility] DR [place] [address] Anesthesia Record Procedure Summary Procedure Name Responsible [...] performed by Romario Womack Jr., MD at [facility] ??? PRO CYSTOURETHROSCOPY N/A 03/09/2022 CYSTO, CYSTOURETHROSCOPY, DIAGNOSTIC (WRVU 2.23) performed by Romario Womack Jr., MD at [facility] ??? PRO CYSTOURETHROSCOPY, URETER CATHETER Left 10/13/2021 CYSTO, RETROGRADE, URETEROPYELOGRAPHY (WRVU 2.37) performed by Romario Womack Jr., MD at [facility] ??? PRO EXCISE EXCESS SKIN TISSUE, ABDOMEN N/A 05/17/2016 ABDOMINOPLASTY performed by Adis Membreno MD at [facility] OR ??? PRO LAP GASTRIC BYPASS/KEYSHA-EN-Y 02/08/2014 @LAPAROSCOPIC GASTROPLASTY, performed by Wally Pfeiffer MD at [facility] OR ??? PRO LAP, DIAGNOSTIC ABDOMEN 02/10/2014 LAPAROSCOPY, DIAGNOSTIC, ABDOMEN performed by Wally Pfeiffer MD at [facility] OR ??? PRO REPAIR INCISIONAL HERNIA, REDUCIBLE N/A 05/17/2016 REPAIR INITIAL INCISIONAL OR VENTRAL HERNIA REDUCIBLE [facility] ??? PRO UNLISTED LAPAROSCOPIC PROCEDURE ESOPHAGUS 02/08/2014 LAPAROSCOPIC REVISION OF DELROY FUNDOPLASTY performed by Wally Pfeiffer MD at [facility] OR ??? PRO UPPER GI ENDOSCOPY, BIOPSY 12/11/2013 UPPER GASTROINTESTINAL ENDOSCOPY,WITH BIOPSY SINGLE OR MULTIPLE performed by Wally Pfeiffer MDat [facility] ENDOSCOPY ??? PRO UPPER GI ENDOSCOPY, DIAGNOSTIC 12/25/2013 EGD, UPPER GI ENDOSCOPY performed by Wally Pfeiffer MD at [facility] ENDOSCOPY ??? PRO UPPER GI ENDOSCOPY, DIAGNOSTIC 02/08/2014 ENDOSCOPY, UPPER GI, DIAGNOSTIC, WITH OR WITHOUT SPECIMENS performed by Wally Pfeiffer MD at [facility] OR ??? TONSILLECTOMY ??? TOTAL KNEE ARTHROPLASTY [...] adequate PIV access Gabriel Chatman MD 05/22/2022 Flagger Pager #[phone] Informed Consent: Anesthesia Screening documented in this encounter Plan of Treatment Not on file documented as of this encounter Visit Diagnoses Not on filedocumented in this encounter Care Teams Online Producer Relationship Specialty Start Date End Date David Massey MD [address] [place] [address] PCP - General Emergency Medicine 03/31/21 documented as of this encounter
--- OUTSIDE RECORDS SUMMARY | 2024-06-09 09:18 | XMS_ITS | Encounter Summary ---
[place] [address] Care Team Providers Care Childrens Club Attendant Name Role Phone David Massey MD Primary Care Provider Encounter Details Date Type Department Care Team (Late st Contact Info) Description 05/23/2022 Orders [place] [address] Aline Pate, RN Venous insufficiency of both lower extremities; [...] stage documented in this encounter Care Teams Childrens Club Attendant Relationship Specialty Start Date End Date David Massey MD [address] [place] [address] PCP - General Emergency Medicine 03/31/21 documented as of this encounter
--- OUTSIDE RECORDS SUMMARY | 2024-06-09 09:18 | XMS_ITS | Encounter Summary ---
Author Organization [facility] [place] [address] Care Team Providers Care Customer Complaint Clerk Name Role Phone Dominic Restrepo MD Primary Care Provider [phone] Encounter Details Date Type Department Care Team (Late st Contact Info) Description 05/09/2017 Orders [place] [address] Narda Allen APRN [facility] [place] [address] Disorder of iron metabolism; Status post bariatric [...] unspecified documented in this encounter Care Teams Customer Complaint Clerk Relationship Specialty Start Date End Date Dominic Restrepo MD [address] [place], [place] [id number] PCP - General Family Medicine 04/22/17 03/30/21 documented as of this encounter
--- OUTSIDE RECORDS SUMMARY | 2024-06-09 09:18 | XMS_ITS | Encounter Summary ---
[place] [address] Care Team Providers Care Client Advisor Name Role Phone David Massey MD Primary Care Provider [phone] Encounter Details Date Type Department Care Team (Late st Contact Info) Description 08/28/2022 [place] [address] Felecia Carney Social History Tobacco Use Types [...] on filedocumented in this encounter Care Teams Client Advisor Relationship Specialty Start Date End Date David Massey MD [address] [place] [address] PCP - General Emergency Medicine 03/31/21 documented as of this encounter
--- OUTSIDE RECORDS SUMMARY | 2024-06-09 09:18 | XMS_ITS | Encounter Summary ---
[place] [address] Care Team Providers Care Roofer Name Role Phone David Massey MD Primary Care Provider [phone] Encounter Details Date Type Department Care Team (Late st Contact Info) Description 05/02/2022 Telephone Vascular [place] [address] Claire Stuart Social History Tobacco Use Types [...] on filedocumented in this encounter Care Teams Roofer Relationship Specialty Start Date End Date David Massey MD [address] [place] [address] PCP - General Emergency Medicine 03/31/21 documented as of this encounter
--- OUTSIDE RECORDS SUMMARY | 2024-06-09 09:18 | XMS_ITS | Encounter Summary ---
Author Organization [facility] [place] [address] Care Team Providers Care Artillery Meteorological Man Name Role Phone David Massey MD Primary Care Provider [phone] Encounter Details Date Type Department Care Team ([facility] Contact Info) Description 01/17/2022 Telephone [place] [address] Ene Dao RN Social History Tobacco Use [...] Dao RN - 01/17/2022 11:54 AM EDT Packing Supervisor took a phone call from this patient's PCP office asking about the patient's unna boot change. The PCP office stated that they would be willing to change it for the patient on a weekly basis asit's much closer to patient than coming here. Packing Supervisor stated that would be fine and our cellophane worker would reach out to him to schedule surery once a date was available. documented in this encounter Plan of Treatment Not on file documented as of this encounter Visit Diagnoses Not on filedocumented in this encounter Care Teams Artillery Meteorological Man Relationship Specialty Start Date End Date David Massey MD [address] [place] [address] PCP - General Emergency Medicine 03/31/21 documented as of this encounter
--- OUTSIDE RECORDS SUMMARY | 2024-06-09 09:18 | XMS_ITS | Encounter Summary ---
[place] [address] Care Team Providers Care Woodworking Machine Offbearer Name Role Phone David Massey MD Primary Care Provider [phone] Reason for Visit * Auth/Cert Specialty Diagnoses / Procedures Referred By Sonal dawson Referred To Contact Diagnoses venous insufficiency with stasis ulcers Procedures PRO ENDOVENOUS RF, 1ST VEIN ENDOVENOUS ABLATION THERAPY OF INCOMPETENT VEIN, EXTREMITY, FIRST VEIN (WRVU 5.3) Wally López III, MD [address] [place] [id number] RUST Referral ID Status Reason Start Date Expiration Date Visits Re quested Visits Authorized [id number] 1 1 Encounter Details Date Type Department Care Team ([facility] st Contact Info) Description 05/02/2022 Surgery [place] [address] Wally López III, MD [address] [place] [address] Not Performed ENDOVENOUS ABLATION THERAPY OF INCOMPETENT [...] extremities documented in this encounter Care Teams Woodworking Machine Offbearer Relationship Specialty Start Date End Date David Massey MD [address] [place] [address] PCP - General Emergency Medicine 03/31/21 documented as of this encounter
--- OUTSIDE RECORDS SUMMARY | 2024-06-09 09:18 | XMS_ITS | Encounter Summary ---
Author Organization [facility] [place] [address] Care Team Providers Care Flue Dust Laborer Name Role Phone David Massey MD Primary Care Provider [phone] Encounter Details Date Type Department Care Team (Late st Contact Info) Description 01/11/2022 Orders [place] [address] Julienne Tinoco, RN Venous insufficiency of both [...] RN - 01/11/2022 8:50 AM EDT This typewriter mechanic phoned the patient regarding their upcoming vascular [...] Patient repeated medication plan back to this typewriter mechanic. documented in this encounter Plan of Treatment Not on file documented as of this encounter Visit Diagnoses Diagnosis Venous insufficiency of both lower extremities documented in this encounter Care Teams Flue Dust Laborer Relationship Specialty Start Date End Date David Massey MD [address] [place] [address] PCP - General Emergency Medicine 03/31/21 documented as of this encounter
--- OUTSIDE RECORDS SUMMARY | 2024-06-09 09:18 | XMS_ITS | Encounter Summary ---
Author Organization [facility] Address [facility] [place] [address] Care Team Providers Care Reclamation Furnace Operator Name Role Phone Dominic Restrepo MD Primary Care Provider [phone] Encounter Details Date Type Department Care Team (Late st Contact Info) Description 12/25/2017 Orders Only [place] [address] Marcial Frost PA [facility] [place] [address] Left shoulder pain, unspecified chronicity Social History [...] chronicity documented in this encounter Care Teams Reclamation Furnace Operator Relationship Specialty Start Date End Date Dominic Restrepo MD [address] [place], [place] [id number] PCP - General Family Medicine 04/22/17 03/30/21 documented as of this encounter
--- OUTSIDE RECORDS SUMMARY | 2024-06-09 09:18 | XMS_ITS | Encounter Summary ---
Author Organization [facility] Address [facility] [place] [address] Care Team Providers Care Director Of Community Services Name Role Phone Dominic Restrepo MD Primary Care Provider [phone] Encounter Details Date Type Department Care Team (Late st Contact Info) Description 04/22/2017 11:00 AM EDT Office [place] [address] Stephanie Butcher MD [facility] [place] [address] Ventral hernia without obstruction or gangrene Social [...] gangrene documented in this encounter Care Teams Director Of Community Services Relationship Specialty Start Date End Date Dominic Restrepo MD [address] [place] [address] PCP - General Family Medicine 04/22/17 03/30/21 documented as of this encounter
--- OUTSIDE RECORDS SUMMARY | 2024-06-09 09:18 | XMS_ITS | Encounter Summary ---
Author Organization [facility] [place] [address] Care Team Providers Care Shelf Filler Name Role Phone David Massey MD Primary Care Provider [phone] Encounter Details Date Type Department Care Team (Late st Contact Info) Description 10/16/2021 [place] [phone] Luba Lambert LNA Social History Tobacco Use [...] on filedocumented in this encounter Care Teams Shelf Filler Relationship Specialty Start Date End Date David Massey MD [address] [place], [place] [id number] (work) PCP - General Emergency Medicine 03/31/21 documented as of this encounter
--- OUTSIDE RECORDS SUMMARY | 2024-06-09 09:18 | XMS_ITS | Encounter Summary ---
Author Organization [facility] [place] [address] Care Team Providers Care Instrument Maker Apprentice Name Role Phone David Massey MD Primary Care Provider [phone] Reason for Visit * Auth/Cert Specialty Diagnoses / Procedures Referred By Sonal dawson Referred To Contact Diagnoses Left renal stone LEFT STONE Procedures PRO CYSTO/URETERO/PYELOSCOPY W/LITHOTRIPSY CYSTOURETEROSCOPY, LITHOTRIPSY (WRVU 7.5) MODIFIER HOLMIUM LASER Referral ID Status Reason Start Date Expiration Date Visits Re quested Visits Authorized [id number] 1 1 Encounter Details Date Type Department Care Team (Late st Contact Info) Description 03/09/2022 1:18 PM EDT - 03/09/2022 3:38 PM EDT Surgery [place] [address] Celia Womack Jr., MD [facility] [place] [address] CYSTO, CYSTOURETHROSCOPY, DIAGNOSTIC (WRVU 1.53) Social History [...] closest emergency room or call the hospital air gun operator at [phone] and ask for physician traffic control technician covering for your physician. Questions or problems after 5pm or on a weekend: Call the [facility] air gun operator at and ask for the physician traffic control technician covering for your doctor. * Patient Instructions* Paulette Pickard MD - 03/08/2022 11:52 AM EDT Discharge Instructions after Cystoscopy Call your doctor for: Fevers greater than 101.3F Severe nausea or vomiting Increasing pain not controlled by pain medications Inability to urinate The number for questions is [phone] before 5 PM weekdays and [phone] after 5 PM and weekends if questions [...] renal ultrasound before your appointment. Please call [phone] if you do not receive your appointment. [...] bid x7 days and Keflex 500mg tid [id number]. He presents today for cystoscopy, left ureteroscopy [...] performed by Celia Womack Jr., MD at [facility] ??? PRO CYSTOURETHROSCOPY, URETER CATHETER Left 10/13/2021 CYSTO, RETROGRADE, URETEROPYELOGRAPHY (WRVU 2.37) performed by Celia Womack Jr., MD at [facility] ??? PRO EXCISE EXCESS SKIN TISSUE, ABDOMEN N/A 05/17/2016 ABDOMINOPLASTY performed by Adis Membreno MD at [facility] OR ??? PRO LAP GASTRIC BYPASS/KEYSHA-EN-Y 02/08/2014 @LAPAROSCOPIC GASTROPLASTY, performed by Wally Pfeiffer MD at [facility] OR ??? PRO LAP, DIAGNOSTIC ABDOMEN 02/10/2014 LAPAROSCOPY, DIAGNOSTIC, ABDOMEN performed by Wally Pfeiffer MD at [facility] OR ??? PRO REPAIR INCISIONAL HERNIA, REDUCIBLE N/A 05/17/2016 REPAIR INITIAL INCISIONAL OR VENTRAL HERNIA REDUCIBLE [facility] ??? PRO UNLISTED LAPAROSCOPIC PROCEDURE ESOPHAGUS 02/08/2014 LAPAROSCOPIC REVISION OF DELROY FUNDOPLASTY performed by Wally Pfeiffer MD at [facility] OR ??? PRO UPPER GI ENDOSCOPY, BIOPSY 12/11/2013 UPPER GASTROINTESTINAL ENDOSCOPY,WITH BIOPSY SINGLE OR MULTIPLE performed by Wally Pfeiffer MDat [facility] ??? PRO UPPER GI ENDOSCOPY, DIAGNOSTIC 12/25/2013 EGD, UPPER GI ENDOSCOPY performed by Wally Pfeiffer MD at [facility] ??? PRO UPPER GI ENDOSCOPY, [...] Operative Note Patient Name: Eugene Rueda : [id number] MR#: [id number] Case Date: 03/09/2022 Surgeon: Surgeon(s) and Role: [...] Jr., MD - 03/09/2022 2:17 PM EDT [place] Operative Note Patient Name: Eugene Rueda : [id number] MR#: [id number] Case Date: 03/09/2022 Surgeon: Surgeon(s) and Role: [...] bid x7 days and Keflex 500mg tid [id number]. ?? He presents today for cystoscopy, left [...] CULTURE Routine 03/09/2022 2:47 PM EDT Cystourethroscopy (03389) 2021 1:57 PM EDT LEFT STONE documented [...] EDT) Urine Culture 1,000-9,000 cfu/ml Roxy glabrata(A) [facility] Organism Roxy glabrata(A) [facility] Cystoscopic Urine 03/09/2022 2:47 PM EDT 03/09/2022 4:00 PM EDT Narrative Resulting Agency Comment Spec In Lab Celia Womack Jr., MD MICROBIOLOGY - GEN ERAL ORDERABLES [facility] [place] [address] documented in this encounter Visit Diagnoses Not [...] 100 mL infusion (COMPLETED) 2 g, Intravenous, PLANT HEALTH CARE TECHNICIAN TO O.R., 1 dose, On Sat03/09/22 at 1215, Administer over 30 Minutes, Day of Surgery (Day of Procedure), Indication for (Active or Suspected): Prophylaxis 1356 (Given - Provid er: Odalis Montes CRNA) fluconazole (Diflucan) 400 mg in sodium chloride 0.9% 200 mL infusion (COMPLETED) 400 mg, Intravenous, PLANT HEALTH CARE TECHNICIAN TO O.R., 1 dose, On Sat03/09/22 at [...] CRNA) documented in this encounter Care Teams Instrument Maker Apprentice Relationship Specialty Start Date End Date David Massey MD [address] [place] [address] PCP - General Emergency Medicine 03/31/21 documented as of this encounter
--- OUTSIDE RECORDS SUMMARY | 2024-06-09 09:19 | XMS_ITS | Encounter Summary ---
[place] [address] Care Team Providers Care Tube Machine Operator Helper Name Role Phone Manolo Castro MD Primary Care Provider [phone] Reason for Visit * Reason Comments Follow Up Surgery 05/17/16 drain remova l Encounter Details Date Type Department Care Team (Latest Contact Info) Description 07/09/2016 11:00 AM EDT Clinical Support [place] [address] Surgery follow-up Social History Tobacco Use Types [...] symptoms please call our nurse's line at [phone] M - F 8 - 5 documented [...] surgery documented in this encounter Care Teams Tube Machine Operator Helper Relationship Specialty Start Date End Date Manolo Castro MD [address] [address] PCP - General 05/14/12 04/21/17 documented as of this encounter
--- OUTSIDE RECORDS SUMMARY | 2024-06-09 09:19 | XMS_ITS | Encounter Summary ---
[place] [address] Care Team Providers Care Manager Endoscopy Name Role Phone Manolo Castro MD Primary Care Provider [phone] Encounter Details Date Type Department Care Team (Late st Contact Info) Description 04/05/2014 Orders [place] [address] FriendDenice LPN Social History Tobacco Use Types Packs/Day [...] filedocumented in this encounter Care Teams Manager Endoscopy Relationship Specialty Start Date End Date Manolo Castro MD [address] [place] [address] PCP - General 05/14/12 04/21/17 documented as of this encounter
--- OUTSIDE RECORDS SUMMARY | 2024-06-09 09:19 | XMS_ITS | Encounter Summary ---
Author Organization [facility] [place] [address] Care Team Providers Care Core Stacker Name Role Phone Manolo Castro MD Primary Care Provider [phone] Reason for Visit * Reason Onset Date Comments Reminder Appointment 04/01/2014 Encounter Details Date Type Department Care Team (Late st Contact Info) Description 04/01/2014 [place] [address] Rebecca Hamilton PA [facility] [place] [address] Reminder Appointment Social History Tobacco Use Types [...] on filedocumented in this encounter Care Teams Core Stacker Relationship Specialty Start Date End Date Manolo Castro MD [address] [place] [address] PCP - General 05/14/12 04/21/17 documented as of this encounter
--- OUTSIDE RECORDS SUMMARY | 2024-06-09 09:19 | XMS_ITS | Encounter Summary ---
Author Organization [facility] Address [facility] [place] [address] Care Team Providers Care Retail Sales Teammate Name Role Phone Manolo Castro MD Primary Care Provider [phone] Encounter Details Date Type Department Care Team (Latest Contact Info) Description 05/07/2014 11:54 AM EDT - 05/07/2014 11:59 PM EDT Hospital Encounter XRay at [address] [place] [address] S/P knee replacement, bilateral Social History Tobacco [...] bilateral documented in this encounter Care Teams Retail Sales Teammate Relationship Specialty Start Date End Date Manolo Castro MD [address] [place] [address] PCP - General 05/14/12 04/21/17 documented as of this encounter
--- OUTSIDE RECORDS SUMMARY | 2024-06-09 09:19 | XMS_ITS | Encounter Summary ---
Author Organization [facility] Address [facility] [place] [address] Care Team Providers Care Rivet Sticker Name Role Phone Manolo Castro MD Primary Care Provider [phone] Reason for Referral * Consultation (Routine) - Closed Specialty Diagnoses / Procedures Referred By Sonal dawson Referred To Contact General Surgery Diagnoses Abdominal pannus Karlene Membreno MD [facility] [place] [address] Stephanie Butcher MD [facility] [place] [place] [address] Referral ID Status Reason Start Date Expiration Date V isits Requested Visits Authorized [id number] Closed Consult, Test & Treat 02/07/2016 02/06/2017 1 1 Reason for Visit * Reason Comments Advice Only post gastric bypass 2013 * Consultation (Routine) - Specialty Diagnoses / Procedures Referred By Sonal dawson Referred To Contact Plastic Surgery Diagnoses Status post bariatric surgery Intestinal malabsorption, unspecified type Symptomatic abdominal panniculus Narda Allen, TABLEAU ARCHITECT [facility] [place] [address] Karlene Membreno MD [facility] [place] [place] [address] Referral ID Status Reason Start Date Expiration Date V isits Requested Visits Authorized [id number] Consult, Test & Treat 12/08/2015 12/07/2016 1 1 Encounter Details Date Type Department Care Team (Late st Contact Info) Description 02/07/2016 9:30 AM EDT Office Visit Plastic Surgery at [facility] [place] [address] Karlene Membreno MD [facility] [place] [address] Abdominal pannus Social History Tobacco Use Types [...] this encounter Patient Instructions * Patient Instructions* Ene Toribio RMA - 02/07/2016 10:11 AM EDT You were given written and verbal preoperative instructions today. To prepare for your upcoming surgery, please review the Pre-Operative Instruction brochure that wasgiven to you. Remember to do the pre op wash, with Hibiclens soap, as instructed. You will need a star route mail driver. Expect a call from the nurses from the Same Day Dept. the business day before the surgery to instruct you in the time to arrive as well as when to stop eating and drinking. Feel free to call our office @ [phone] if you have any questions or concerns. [...] aspirin products (unless otherwise advised by patient's PCP/Spool Cleaner Hand for cardiac symptoms), fish oil, Vitamin E [...] OR MULTIPLE performed by Wally Pfeiffer MDat [facility] ??? Pro upper gi endoscopy, diagnostic 12/25/2013 EGD, UPPER GI ENDOSCOPY performed by Wally Pfeiffer MD at [facility] ??? Pro lap, esophagus, other proc 02/08/2014 LAPAROSCOPIC REVISION OF DELROY FUNDOPLASTY performed by Wally Pfeiffer MD at [facility] OR ??? Pro lap gastric bypass/monica-en-y 02/08/2014 @LAPAROSCOPIC GASTROPLASTY, performed by Wally Pfeiffer MD at [facility] OR ??? Pro upper gi endoscopy, diagnostic 02/08/2014 ENDOSCOPY, UPPER GI, DIAGNOSTIC, WITH OR WITHOUT SPECIMENS performed by Wally Pfeiffer MD at [facility] OR ??? Pro lap, diagnostic abdomen 02/10/2014 LAPAROSCOPY, DIAGNOSTIC, ABDOMEN performed by Wally Pfeiffer MD at [facility] OR History Social History ??? [...] Procedure: Panniculectomy with possible component separation CPT: 35265, [address]-70 Surgical site: Abdomen Side: N/a Anesthesia: General [...] adiposity documented in this encounter Care Teams Rivet Sticker Relationship Specialty Start Date End Date Manolo Castro MD [address] [place] [address] PCP - General 05/14/12 04/21/17 documented as of this encounter
--- OUTSIDE RECORDS SUMMARY | 2024-06-09 09:19 | XMS_ITS | Encounter Summary ---
Author Organization [facility] Address [facility] [place] [address] Care Team Providers Care Journeyman Powerhouse Operator Name Role Phone Manolo Castro MD Primary Care Provider [phone] Reason for Visit * Auth/Cert Specialty Diagnoses / Procedures Referred By Sonal dawson Referred To Contact Diagnoses Abdominal pannus Ventral hernia without obstruction or gangrene E65 - abdominal pannus K43.90 - Ventral hernia Proposed admit date of 05/17/2016 Panel 1 w/ Dr. Valencia for cpt code 16035 Panel 2 w/ Dr. Ortega for cpt code 00123 Procedures PRO EXCISE EXCESS SKIN TISSUE, ABDOMEN PRO REPAIR INCISIONAL HERNIA, REDUCIBLE PRO MUSCLE-SKIN FLAP, TRUNK ABDOMINOPLASTY Referral ID Status Reason Start Date Expiration Date Visits Re quested Visits Authorized [id number] 1 1 Encounter Details Date Type Department Care Team (Latest Contact Info) Description 05/17/2016 5:41 AM EDT - 05/20/2016 10:06 AM EDT Hospital Encounter 3 [place] [address] Karlene Vlaencia MD [facility] [place] [address] Chronic anticoagulation Discharge Disposition: Home with VNA [...] OR MULTIPLE performed by Wally Pfeiffer MDat [facility] ??? Pro upper gi endoscopy, diagnostic 12/25/2013 EGD, UPPER GI ENDOSCOPY performed by Wally Pfeiffer MD at [facility] ??? Pro lap, esophagus, other proc 02/08/2014 LAPAROSCOPIC REVISION OF DELROY FUNDOPLASTY performed by Wally Pfeiffer MD at [facility] OR ??? Pro lap gastric bypass/monica-en-y 02/08/2014 @LAPAROSCOPIC GASTROPLASTY, performed by Wally Pfeiffer MD at [facility] OR ??? Pro upper gi endoscopy, diagnostic 02/08/2014 ENDOSCOPY, UPPER GI, DIAGNOSTIC, WITH OR WITHOUT SPECIMENS performed by Wally Pfeiffer MD at [facility] MAIN OR ??? Pro lap, diagnostic abdomen 02/10/2014 LAPAROSCOPY, DIAGNOSTIC, ABDOMEN performed by Wally Pfeiffer MD at [facility] OR ??? Pro excise excess skin tissue, abdomen N/A 05/17/2016 ABDOMINOPLASTY performed by Karlene Valencia MD at [facility] OR ??? Pro repair incisional hernia, reducible N/A 05/17/2016 REPAIR INITIAL INCISIONAL OR VENTRAL HERNIA REDUCIBLE performed by Stephanie Ortega MD at [facility] ??? N/A 05/17/2016 MODIFIER PANNICULECTOMY performed by Karlene Valencia MD at [facility] OR Procedures: 05/17/2016 Surgeon(s) and Role: [...] 11:20 AM Terri Mak APRN Plastic Surgery [phone] 06/15/2016 9:30 AM [facility] DX ROOM 4 [facility] Xray [phone] Please go to Traffic Coordinator Area 3T ([place] Location). 06/15/2016 10:30 AM Pablo Handy PA Orthopaedics [phone] 06/19/2016 11:20 Stephanie Garces MD General Surgery [phone] Future Orders Complete By Expires Referral to Home Health - at DISCHARGE [[id number] CPT(R)] As directed Process Instructions: Scheduling Instructions: Comments: DOCUMENTATION FOR VNA SERVICES (INCLUDING THOSE PATIENTS WITH MEDICARE COVERAGE REQUIRING HOME VNA SERVICES AND/OR HOSPICE SERVICES) PATIENT'S LOCATION: Eugene Rueda [address] [place] [address] [address] [facility] [address] (home) Cell: Telephone Information: Payroll Secretary's Name: self In discussion with the attending physician, it is certified that this patient is under their care and that they, or a Nurse Practitioner,Clinical Nurse specialist or Physician Stone Banker who is working directly with them, had [...] re health issues HOME HEALTH CARE AGENCY: [facility] PHONE: [phone] FAX: [phone] Start of care: 24 hours after discharge [...] MD [address] / [place] [address] All VNA agencies which cover the area [...] [place] [address] [place] [address] (home) Telephone Information: Diagnosis: abdominal pannus with Unsteady gait Patient???s: Hgt: 5' 9 Wgt: 220lbs VENDOR: [facility] Ordering: Front wheel walker Deliver to [facility] room #: 321A Questions: Vendor [...] called in to our prescription line at [phone]. Narcotic renewals may be requested from 8am-4pm [...] Saturday 8 am to 5 pm Call [phone] On weekends or after hours: Call [phone] and ask the tilting saw operator to page the Plastic Surgery Resident applications analyst. Follow-up plan: Future Appointments and Orders Future Appointments Provider Department Dept Phone 05/29/2016 11:20 AM Terri Mak APRN Plastic Surgery [phone] 06/15/2016 9:30 AM HEALTH SYSTEM DX ROOM 4 [facility] Xray [phone] Please go to Traffic Coordinator Area 3T ([place] Location). 06/15/2016 10:30 AM Pablo Handy PA Orthopaedics [phone] 06/19/2016 11:20 AM Stephanie Ortega MD General Surgery [phone] Future Orders Complete By Expires Referral to Home Health - at DISCHARGE [[id number] CPT(R)] As directed Process Instructions: Scheduling Instructions: Comments: DOCUMENTATION FOR VNA SERVICES (INCLUDING THOSE PATIENTS WITH MEDICARE COVERAGE REQUIRING HOME VNA SERVICES AND/OR HOSPICE SERVICES) PATIENT'S LOCATION: Eugene [place] [facility] [address] [address] (home) Cell: Telephone Information: Payroll Secretary's Name: self In discussion with the attending physician, it is certified that this patient is under their care and that they, or a Nurse Practitioner,Clinical Nurse specialist or Physician Stone Banker who is working directly with them, had [...] re health issues HOME HEALTH CARE AGENCY: [facility] PHONE: [phone] FAX: [phone] Start of care: 24 hours after discharge [...] from this patient's PCP: MANOLO CASTRO MD [place] [address] / [facility] [address] All [facility] agencies which cover the area of patient's residence have been reviewed, either verbally harry writing, and patient/family have chosen the home health care agency noted Questions: Agency name and contact information: [facility] Patient location post discharge: home What services are requested: Registered Nurse Start date: 05/21/2016 Responsible MD post discharge contact info: Dr Valencia and PCP Demond standard [EQ135 Custom] As directed Process Instructions: Scheduling Instructions: Comments: Eugene Rueda [address] [facility] [address] (home) Telephone Information: Diagnosis: abdominal pannus with Unsteady gait Patient???s: Hgt: 5' 9 Wgt: 220lbs VENDOR: [employer] Ordering: Front wheel walker Deliver to pt's hospital room #: 321A Questions: Vendor Name/Contact information: [facility] VNA: Discharge Procedure Orders Referral to Home Health - at DISCHARGE Order Comments: DOCUMENTATION FOR VNA SERVICES (INCLUDING THOSE PATIENTS WITH MEDICARE COVERAGE REQUIRING HOME VNA SERVICES AND/OR HOSPICE SERVICES) PATIENT'S LOCATION: Eugene Rueda [facility] [address] [facility] [address] (home) Cell: Telephone Information: Payroll Secretary's Name: self In discussion with the attending physician, it is certified that this patient is under their care and that they, or a Nurse Practitioner,Clinical Nurse specialist or Physician Stone Banker who is working directly with them, had [...] re health issues HOME HEALTH CARE AGENCY: [facility] PHONE: [phone] FAX: [phone] Start of care: 24 hours after discharge [...] MD [address] / [place] [address] All VNA agencies which cover the area of patient's residence have been reviewed, either verbally harry writing, and patient/family have chosen the home health care agency noted Order Specific Question Answer Comments Agency name and contact information [facility] Patient location post discharge home What [...] 11:20 AM Terri Mak APRN Plastic Surgery [phone] 06/15/2016 9:30 AM HEALTH SYSTEM DX ROOM 4 [facility] SYSTEM Xray [phone] Please go to Traffic Coordinator Area 3T ([place] Location). 06/15/2016 10:30 AM Pablo Handy PA Orthopaedics [phone] 06/19/2016 11:20 AM Stephanie Ortega MD General Surgery [phone] Future Orders Complete By Expires Referral to Home Health - at DISCHARGE [[id number] CPT(R)] As directed Process Instructions: Scheduling Instructions: Comments: DOCUMENTATION FOR VNA SERVICES (INCLUDING THOSE PATIENTS WITH MEDICARE COVERAGE REQUIRING HOME VNA SERVICES AND/OR HOSPICE SERVICES) PATIENT'S LOCATION: Eugene Ninonigel [address] [place] [address] (home) Cell: Telephone Information: Payroll Secretary's Name: self In discussion with the attending physician, it is certified that this patient is under their care and that they, or a Nurse Practitioner,Clinical Nurse specialist or Physician Stone Banker who is working directly with them, had [...] re health issues HOME HEALTH CARE AGENCY: [facility]. PHONE: [phone] FAX: [phone] Start of care: 24 hours after discharge [...] PCP: MANOLO CASTRO MD [address] / [facility] [address] All A agencies which cover the area of patient's residence have been reviewed, either verbally harry writing, and patient/family have chosen the home health care agency noted Questions: Agency name and contact information: [facility] Patient location post discharge: home What services are requested: Registered Nurse Start date: 05/21/2016 Responsible MD post discharge contact info: Dr Valencia and PCP Demond standard [EQ135 Custom] As directed Process Instructions: Scheduling Instructions: Comments: Eugene Rueda [address] [facility] [place] [address] (home) Telephone Information: Diagnosis: abdominal pannus with Unsteady gait Patient???s: Hgt: 5' 9 Wgt: 220lbs VENDOR: [facility] Ordering: Front wheel walker [facility] Questions: Vendor [...] called in to our prescription line at [phone]. Narcotic renewals may be requested from 8am-4pm [...] Saturday 8 am to 5 pm Call [phone] On weekends or after hours: Call [phone] and ask the tilting saw operator to page the Plastic Surgery Resident applications analyst. documented in this encounter Medications at Time [...] RN - 05/20/2016 6:47 AM EDT 3 [place] Telemetry Note Diagnosis r/t telemetry: Afib Subjective: [...] PO, voiding. Stable for home today Ilya lA MD * Ilya Al MD - 05/18/2016 12:56 PM EDT General Surgery Inpatient Progress Note ID: Eugnee Rueda is a 65 y.o. male s/p [...] DVT Px Milton Vu MD 05/18/2016 Pager: [phone] * Kenia Sarabia RN - 05/17/2016 1:15 PM EDT [facility] via bed from PACU s/p abdominoplasty/paniculectomy. Patient AOx 4, HR irregular, lung sounds clear. Patient denies chest pain and SOB. Hypoactive bowel sounds, lbm 8/10, pt DTV [phone]. Denies numbness and tingling. Dressing to abdomen [...] Al MD - 05/17/2016 7:16 AM EDT [facility] Department of General Surgery Interval History and [...] OR MULTIPLE performed by Wally Pfeiffer MDat [facility] ??? Pro upper gi endoscopy, diagnostic 12/25/2013 EGD, UPPER GI ENDOSCOPY performed by Wally Pfeiffer MD at [facility] ??? Pro lap, esophagus, other proc 02/08/2014 LAPAROSCOPIC REVISION OF DELROY FUNDOPLASTY performed by Wally Pfeiffer MD at [facility] OR ??? Pro lap gastric bypass/monica-en-y 02/08/2014 @LAPAROSCOPIC GASTROPLASTY, performed by Wally Pfeiffer MD at [facility] OR ??? Pro upper gi endoscopy, diagnostic 02/08/2014 ENDOSCOPY, UPPER GI, DIAGNOSTIC, WITH OR WITHOUT SPECIMENS performed by Wally Pfeiffer MD at [facility] OR ??? Pro lap, diagnostic abdomen 02/10/2014 LAPAROSCOPY, DIAGNOSTIC, ABDOMEN performed by Wally Pfeiffer MD at [facility] OR ??? Pro excise excess skin tissue, abdomen N/A 05/17/2016 ABDOMINOPLASTY performed by Karlene Valencia MD at [facility] OR ??? Pro repair incisional hernia, reducible N/A 05/17/2016 REPAIR INITIAL INCISIONAL OR VENTRAL HERNIA REDUCIBLE performed by Stephanie Ortega MD at [facility] ??? N/A 05/17/2016 MODIFIER PANNICULECTOMY performed by Karlene Valencia MD at [facility] OR Social History: patient , lives [...] timed interventions: 0 minutes (initial eval) Pager: [phone] JEAN-PAUL HILL PT 05/19/2016 Physical Therapy Rehabilitation [...] Ortega MD - 05/18/2016 1:[address] [facility] Operative Note Patient Name: Eugene Rueda : [id number] MR#: [id number] Case Date: 05/17/2016 Surgeon: Surgeon(s) and Role: [...] repair (recurrent), with mesh. SURGEON: Dr. Ortega. MICROARRAY SPECIALIST: Shon. Mr. Rueda was seen preoperatively by both [facility] and the Plastic Surgery service. He is [...] using a #1 PDS suture in a frsbd-yivn-whvs-type manner. Interrupted full-thickness sutures were brought through [...] Coverage: yes Primary Insurance: MEDICARE Secondary Insurance: [employer] OOS Prescription Coverage: Insurance as noted Preferred [facility]: [phone] Other: n/a Primary Care Provider: MANOLO CASTRO MD [phone] Patient/Caregiver Goals of Treatment: Return home with [...] transition of care planning. CONRAD Warner Pager: [phone] * Plan of Care - Ana Whitlock [...] Valencia MD - 05/17/2016 10:[address] [facility] Operative Note Patient Name: Eugene Rueda : [id number] MR#: [id number] Case Date: 05/17/2016 Surgeon: Surgeon(s) and Role: [...] mesh. We excised the hernia and Dr. Orteag was called to the operating room for repair. The details of the hernia repair will be dictated independently by Dr. Ortega. Upon completion of the hernia repair, we then irrigated the abdomen copiously. Two #19 Yoruba Rao drains were inserted, 1 on each [...] Operative Note Patient Name: Eugene Rueda : [id number] MR#: [id number] Case Date: 05/17/2016 Surgeon: Surgeon(s) and Role: [...] Procedure Name Priority Date/Time Associated Diagnosis Comments FISH PROCESSOR SCAN 05/21/2016 12:00 AM EDT POCT GLUCOSE [...] in this encounter Results * SCAN DOC: FISH PROCESSOR (05/21/2016 12:00 AM EDT) Anatomical Region Laterality Modality Other Scanning Provider MEDIA MGR SCAN EXT O RDR/RSLT * POCT Glucose (05/20/2016 8:21 AM EDT) Glucose, POC 134 65 - 199 mg/dL [facility] Comment: Supplemental ranges: <140 mg/dL before meals <180 mg/dL all other times of the day Blood specimen (specimen) 05/20/2016 8:21 AM EDT 05/20/2016 8:21 AM EDT Karlene Valencia MD POINT OF CARE TEST O SADIA Performing Organization Address [facility] Co de Phone Number [facility] [place] [place] [address] * POCT Glucose (05/19/2016 8:57 PM EDT) Glucose, POC 131 65 - 199 mg/dL [facility] Comment: Supplemental ranges: <140 mg/dL before meals <180 mg/dL all other times of the day Blood specimen (specimen) 05/19/2016 8:57 PM EDT 05/19/2016 8:57 PM EDT Karlene Valencia MD POINT OF CARE TEST O SADIA [facility] [place] [address] * POCT Glucose (05/19/2016 5:02 PM EDT) Glucose, POC 120 65 - 199 mg/dL [facility] Comment: Supplemental ranges: <140 mg/dL before meals <180 mg/dL all other times of the day Blood specimen (specimen) 05/19/2016 5:02 PM EDT 05/19/2016 5:02 PM EDT Karlene Valencia MD POINT OF CARE TEST O RDERABLES [facility] [place] [address] * POCT Glucose (05/19/2016 11:41 AM EDT) Glucose, POC 140 65 - 199 mg/dL [facility] Comment: Supplemental ranges: <140 mg/dL before meals <180 mg/dL all other times of the day Blood specimen (specimen) 05/19/2016 11:41 AM EDT 05/19/2016 11:41 AM EDT Karlene Valencia MD POINT OF CARE TEST O DYLANERAALYSHA [facility] [place] [address] * POCT Glucose (05/19/2016 7:37 AM EDT) Glucose, POC 134 65 - 199 mg/dL [facility] Comment: Supplemental ranges: <140 mg/dL before meals <180 mg/dL all other times of the day Blood specimen (specimen) 05/19/2016 7:37 AM EDT 05/19/2016 7:37 AM EDT Karlene Valencia MD POINT OF CARE TEST O RDERAALYSHA [facility] [place] [address] * POCT Glucose (05/18/2016 8:48 PM EDT) Glucose, POC 173 65 - 199 mg/dL [facility] Comment: Supplemental ranges: <140 mg/dL before meals <180 mg/dL all other times of the day Blood specimen (specimen) 05/18/2016 8:48 PM EDT 05/18/2016 8:48 PM EDT Karlene Valencia MD POINT OF CARE TEST O RDERAALYSHA [facility] [place] [address] * POCT Glucose (05/18/2016 4:45 PM EDT) Glucose, POC 125 65 - 199 mg/dL [facility] Comment: Supplemental ranges: <140 mg/dL before meals <180 mg/dL all other times of the day Blood specimen (specimen) 05/18/2016 4:45 PM EDT 05/18/2016 4:45 PM EDT Karlene Valencia MD POINT OF CARE TEST O SADIA [facility] [place] [address] * POCT Glucose (05/18/2016 12:14 PM EDT) Glucose, POC 137 65 - 199 mg/dL [facility] Comment: Supplemental ranges: <140 mg/dL before meals <180 mg/dL all other times of the day Blood specimen (specimen) 05/18/2016 12:14 PM EDT 05/18/2016 12:14 PM EDT Karlene Valencia MD POINT OF CARE TEST O RDERAALYSHA [facility] [place] [address] * POCT Glucose (05/18/2016 8:09 AM EDT) Glucose, POC 178 65 - 199 mg/dL [facility] Comment: Supplemental ranges: <140 mg/dL before meals <180 mg/dL all other times of the day Blood specimen (specimen) 05/18/2016 8:09 AM EDT 05/18/2016 8:09 AM EDT Karlene Valencia MD POINT OF CARE TEST O RDERAALYSHA [facility] [place] [address] * POCT Glucose (05/17/2016 9:32 PM EDT) Glucose, POC 172 65 - 199 mg/dL [facility] Comment: Supplemental ranges: <140 mg/dL before meals <180 mg/dL all other times of the day Blood specimen (specimen) 05/17/2016 9:32 PM EDT 05/17/2016 9:32 PM EDT Karlene Valencia MD POINT OF CARE TEST O SADIA Performing Organization Address City/[facility]/ZIP Co de Phone Number [facility] [place] [address] * POCT Glucose (05/17/2016 4:14 PM EDT) Glucose, POC 186 65 - 199 mg/dL [facility] Comment: Supplemental ranges: <140 mg/dL before meals <180 mg/dL all other times of the day Blood specimen (specimen) 05/17/2016 4:14 PM EDT 05/17/2016 4:14 PM EDT Karlene Valencia MD POINT OF CARE TEST O RDERAALYSHA [facility] [place] [address] * POCT Glucose (05/17/2016 10:41 AM EDT) Glucose, POC 185 65 - 199 mg/dL [facility] Comment: Supplemental ranges: <140 mg/dL before meals <180 mg/dL all other times of the day Blood specimen (specimen) 05/17/2016 10:41 AM EDT 05/17/2016 10:41 AM EDT Karlene Valencia MD POINT OF CARE TEST Pat MCCULLOUGH Performing Organization Address [facility] Co de Phone Number [facility] [place] [address] * POCT Glucose (05/17/2016 6:40 AM EDT) Glucose, POC 131 65 - 199 mg/dL [facility] Comment: Supplemental ranges: <140 mg/dL before meals <180 mg/dL all other times of the day Blood specimen (specimen) 05/17/2016 6:40 AM EDT 05/17/2016 6:40 AM EDT Karlene Valencia MD POINT OF CARE TEST Pat MCCULLOUGH Performing Organization Address [facility] de Phone Number [facility] [place] [address] * Prothrombin Time (05/17/2016 5:56 AM EDT) Prothrombin Time 14.6 12.0 - 15.0 sec [facility] Comment: An INR <2.0 indicates adequate procoagulant activity for hemostasis in most patients without underlying bleeding disorders, though the INR may not adequately reflect hemostatic capacity in patients with liver disease and synthetic impairment. The recommended target INR range for therapeutic anticoagulation is 2.0 ? 3.0 for most applications, though lower and higher ranges may be appropriate depending on clinical circumstances. International Normalization Ratio 1.1 0.9 - 1.1 [facility] Blood specimen (specimen) 05/17/2016 5:56 AM EDT 05/17/2016 6:33 AM EDT Narrative Resulting Agency Comment Spec In Lab Karlene Valencia MD HEMATOLOGY ORDERABLE S [facility] [place] [address] documented in this encounter Visit Diagnoses Diagnosis [...] 10 mg, Rectal, DAILY PRN, Starting on Sat05/17/16 at 1250, Until 05/20/16 at 1206, Constipation, [...] PRN, Starting on Sat05/17/16 at 1250, Until Sat05/20/16 at 1206, Low blood sugar, For BG [...] Shea Dixon RN) 0116 (Given - Provider: iDanelys Farrell RN)0900 (Not Given - Provider: Tatianna [...] Shea Dixon RN)2129 (Given - Provider: Dianelys Farrell RN) 0900 (Not Given - Provider: Tatianna Pickens [...] 0858 (Given - Provider: Tatianna Pickens RN) PRN Medication Order 05/18/2016 05/19/2016 05/20/2016 bisacodyl [...] Shea Dixon RN)2141 (Given - Provider: Aida Malone RN) 0058 (Given - Provider: Aida Malone [...] Unit) documented in this encounter Care Teams Journeyman Powerhouse Operator Relationship Specialty Start Date End Date Manolo Castro MD [address] [place] [address] PCP - General 05/14/12 04/21/17 documented as of this encounter
--- OUTSIDE RECORDS SUMMARY | 2024-06-09 09:19 | XMS_ITS | Encounter Summary ---
Author Organization [facility] Address [facility] [place] [address] Care Team Providers Care Paving Plant Operator Name Role Phone Manolo Castro MD Primary Care Provider [phone] Reason for Visit * Reason Comments Follow Up Surgery sp bilat tka dos 12/05 11/09 Encounter Details Date Type Department Care Team (Late st Contact Info) Description 05/07/2014 12:40 PM EDT Office [place] [address] Rebecca Hamilton PA [facility] [place] [address] S/P knee replacement, bilateral; Knee joint replacement [...] Patient Name: Eugene Rueda : 1950 MR#: [id number] Case Date: 12/16/2002 Surgeon: Dr. Turner/ Dr. [...] means documented in this encounter Care Teams Paving Plant Operator Relationship Specialty Start Date End Date Manolo Castro MD [address] [place] [address] PCP - General 05/14/12 04/21/17 documented as of this encounter
--- OUTSIDE RECORDS SUMMARY | 2024-06-09 09:19 | XMS_ITS | Encounter Summary ---
[place] [address] Care Team Providers Care Bonbon Dipper Name Role Phone Manolo Castro MD Primary Care Provider [phone] Encounter Details Date Type Department Care Team (Late Contact Info) Description 03/28/2017 Telephone [place] [id number] Sandie Gibbs Social History Tobacco Use Types [...] on filedocumented in this encounter Care Teams Bonbon Dipper Relationship Specialty Start Date End Date Manolo Castro MD [address] [place] [address] PCP - General 05/14/12 04/21/17 documented as of this encounter
--- OUTSIDE RECORDS SUMMARY | 2024-06-09 09:19 | XMS_ITS | Encounter Summary ---
Author Organization [facility] Address [facility] [place] [address] Care Team Providers Care Core Blower Operator Name Role Phone Manolo [place] MD Primary Care Provider [phone] Encounter Details Date Type Department Care Team (Late st Contact Info) Description 04/26/2014 Orders [place] [address] Rebecca Hamilton PA [facility] [place] [address] S/P knee replacement, bilateral (Primary Dx) Social [...] Primary documented in this encounter Care Teams Core Blower Operator Relationship Specialty Start Date End Date Manolo Castro MD [address] [place], [place] [id number] PCP - General 05/14/12 04/21/17 documented as of this encounter
--- OUTSIDE RECORDS SUMMARY | 2024-06-09 09:19 | XMS_ITS | Encounter Summary ---
Author Organization [facility] Address [facility] [place] [address] Care Team Providers Care Carbon Grinder Name Role Phone Manolo [place] MD Primary Care Provider [phone] Reason for Visit * Reason Comments Follow-up S/P SPIKE SURG 02/08/14 Encounter Details Date Type Department Care Team (Late st Contact Info) Description 03/02/2014 3:40 PM EDT Office [place] [address] Wally Pfeiffer MD [facility] [place] [address] Post-operative state (Primary Dx) Discharge Disposition: Home [...] First Post-operative Follow up visit Contact information: [facility] Admin coordinator Tracy: [phone] Dietitian: [phone] Surgeons/ nurse practitioner: [phone] Nurse line: [phone] Your excess body weight lost: 35% Next [...] of every month from 1-2 PM at [facility] Internet resources: Www.OhLife www.[employer] Www.[employer] Www.ChoosemyTune.gov www.V[employer]Feliz.[employer] Books: - Recipes for Life after Weight [...] Biggest support is his son Momo. multimedia instructional designer hazmat cdl driver for [employer]- works 5pm-10pm. MEDICATIONS: [...] protein- does this twice a day Dinner [place] squash soup- added unflavored protein powder/cream soups/shrimp [...] status documented in this encounter Care Teams Carbon Grinder Relationship Specialty Start Date End Date Manolo Castro MD [address] [place] [address] PCP - General 05/14/12 04/21/17 documented as of this encounter
--- OUTSIDE RECORDS SUMMARY | 2024-06-09 09:19 | XMS_ITS | Encounter Summary ---
[place] [address] Care Team Providers Care Oval Or Circular Glass Cutter Name Role Phone Manolo [place] MD Primary Care Provider [phone] Encounter Details Date Type Department Care Team (Late st Contact Info) Description 03/18/2017 Telephone [place] [id number] Sandie Gibbs Social History Tobacco Use Types [...] on filedocumented in this encounter Care Teams Oval Or Circular Glass Cutter Relationship Specialty Start Date End Date Manolo Castro MD [address] [place], [place] [address] PCP - General 05/14/12 04/21/17 documented as of this encounter
--- OUTSIDE RECORDS SUMMARY | 2024-06-09 09:19 | XMS_ITS | Encounter Summary ---
Author Organization [facility] [place] [address] Care Team Providers Care Aircraft Communicator Name Role Phone Manolo [place] MD Primary Care Provider [phone] Reason for Referral * Physical Therapy (Routine) - Specialty Diagnoses / Procedures Referred By Sonal dawson Referred To Contact Physical Therapy Diagnoses Acute pain of left knee Marcial Frost PA [facility] [place] [address] Referral ID Status Reason Start Date Expiration Date V isits Requested Visits Authorized [id number] Evaluate and Treat 07/31/2016 01/27/2017 12 12 Reason for Visit * Reason Comments Aftercare Of [facility] bilateral TKA 3 Encounter Details Date Type Department Care Team (Late st Contact Info) Description 07/31/2016 11:00 AM EDT Office Visit [place] [address] Marcial Frost PA [facility] [place] [address] Acute pain of left knee (Primary Dx) [...] Patient has bilateral TKA done here at [facility]. He stated that both Surgeons responsible for [...] Primary documented in this encounter Care Teams Aircraft Communicator Relationship Specialty Start Date End Date Manolo Castro MD [address] [place] [address] PCP - General 05/14/12 04/21/17 documented as of this encounter
--- OUTSIDE RECORDS SUMMARY | 2024-06-09 09:19 | XMS_ITS | Encounter Summary ---
Author Organization [facility] [place] [address] Care Team Providers Care Voice Network Administrator Name Role Phone Manolo Castro MD Primary Care Provider [phone] Reason for Visit * Auth/Cert Specialty Diagnoses / Procedures Referred By Sonal dawson Referred To Contact Diagnoses Abdominal pannus Ventral hernia without obstruction or gangrene E65 - abdominal pannus K43.90 - Ventral hernia Proposed admit date of 05/17/2016 Panel 1 w/ Dr. Valencia for cpt code 70494 Panel 2 w/ Dr. Ortega for cpt code 92505 Procedures PRO EXCISE EXCESS SKIN TISSUE, ABDOMEN PRO REPAIR INCISIONAL HERNIA, REDUCIBLE PRO MUSCLE-SKIN FLAP, TRUNK ABDOMINOPLASTY Referral ID Status Reason Start Date Expiration Date Visits Re quested Visits Authorized [id number] 1 1 Encounter Details Date Type Department Care Team (Late st Contact Info) Description 05/17/2016 7:30 AM EDT - 05/17/2016 11:28 AM EDT Surgery [place] [address] Karlene Valencia MD [facility] [place] [address] PANNICULECTOMY (WRVU 17.11) Social History Tobacco Use [...] OR MULTIPLE performed by Wally Pfeiffer MDat [facility] ENDOSCOPY ??? Pro upper gi endoscopy, diagnostic 12/25/2013 EGD, UPPER GI ENDOSCOPY performed by Wally Pfeiffer MD at [facility] ENDOSCOPY ??? Pro lap, esophagus, other proc 02/08/2014 LAPAROSCOPIC REVISION OF DELROY FUNDOPLASTY performed by Wally Pfeiffer MD at [facility] MAIN OR ??? Pro lap gastric bypass/monica-en-y 02/08/2014 @LAPAROSCOPIC GASTROPLASTY, performed by Wally Pfeiffer MD at [facility] MAIN OR ??? Pro upper gi endoscopy, diagnostic 02/08/2014 ENDOSCOPY, UPPER GI, DIAGNOSTIC, WITH OR WITHOUT SPECIMENS performed by Wally Pfeiffer MD at [facility] MAIN OR ??? Pro lap, diagnostic abdomen 02/10/2014 LAPAROSCOPY, DIAGNOSTIC, ABDOMEN performed by Wally Pfeiffer MD at [facility] MAIN OR ??? Pro excise excess skin tissue, abdomen N/A 05/17/2016 ABDOMINOPLASTY performed by Karlene Valencia MD at [facility] MAIN OR ??? Pro repair incisional hernia, reducible N/A 05/17/2016 REPAIR INITIAL INCISIONAL OR VENTRAL HERNIA REDUCIBLE performed by Stephanie Ortega MD at [facility] LOVELY ??? N/A 05/17/2016 MODIFIER PANNICULECTOMY performed by Karlene Valencia MD at [facility] MAIN OR Procedures: 05/17/2016 Surgeon(s) and [...] 11:20 AM Terri Mak APRN Plastic Surgery [phone] 06/15/2016 9:30 AM [facility] DX ROOM 4 [facility] Xray [phone] Please go to Management Development Specialist Area 3T ([place] Location). 06/15/2016 10:30 AM Pablo Handy PA Orthopaedics [phone] 06/19/2016 11:20 AM Stephanie Ortega MD General Surgery [phone] Future Orders Complete By Expires Referral to Home Health - at DISCHARGE [[id number] CPT(R)] As directed Process Instructions: Scheduling Instructions: Comments: DOCUMENTATION FOR VNA SERVICES (INCLUDING THOSE PATIENTS WITH MEDICARE COVERAGE REQUIRING HOME VNA SERVICES AND/OR HOSPICE SERVICES) PATIENT'S LOCATION: Eugene Rueda [address] [place] [address] [address] [facility] [address] (home) Cell: Telephone Information: Radiologist Physician's Name: self In discussion with the attending physician, it is certified that this patient is under their care and that they, or a Nurse Practitioner,Clinical Nurse specialist or Physician Media Theorist And Author Of who is working directly with them, had [...] re health issues HOME HEALTH CARE AGENCY: [facility]. PHONE: [phone] FAX: [phone] Start of care: 24 hours after discharge [...] MD [address] / [place] [address] All VNA agencies which cover the area [...] [place] [address] [place] [address] (home) Telephone Information: Diagnosis: abdominal pannus with Unsteady gait Patient???s: Hgt: 5' 9 Wgt: 220lbs VENDOR: [employer] Ordering: Front wheel walker Deliver to [facility] hospital room #: 321A Questions: Vendor [...] called in to our prescription line at [phone]. Narcotic renewals may be requested from 8am-4pm [...] Saturday 8 am to 5 pm Call [phone] On weekends or after hours: Call [phone] and ask the run boat operator to page the Plastic Surgery Resident occupational therapy teacher. Follow-up plan: Future Appointments and Orders Future Appointments Provider Department Dept Phone 05/29/2016 11:20 AM Terri Mak APRN Plastic Surgery [phone] 06/15/2016 9:30 AM [facility] DX ROOM 4 [facility] Xray [phone] Please go to Management Development Specialist Area 3T ([place] Location). 06/15/2016 10:30 AM Pablo Handy PA Orthopaedics [phone] 06/19/2016 11:20 AM Stephanie Ortega MD General Surgery [phone] Future Orders Complete By Expires Referral to Home Health - at DISCHARGE [[id number] CPT(R)] As directed Process Instructions: Scheduling Instructions: Comments: DOCUMENTATION FOR VNA SERVICES (INCLUDING THOSE PATIENTS WITH MEDICARE COVERAGE REQUIRING HOME VNA SERVICES AND/OR HOSPICE SERVICES) PATIENT'S LOCATION: Eugene Lopez Marybeth [facility] [address] [address] (home) Cell: Telephone Information: Radiologist Physician's Name: self In discussion with the attending physician, it is certified that this patient is under their care and that they, or a Nurse Practitioner,Clinical Nurse specialist or Physician Media Theorist And Author Of who is working directly with them, had [...] re health issues HOME HEALTH CARE AGENCY: [facility] PHONE: [phone] FAX: [phone] Start of care: 24 hours after discharge [...] from this patient's PCP: MANOLO CASTRO MD [facility] [address] / [facility] [address] All [facility] agencies which cover the area of patient's residence have been reviewed, either verbally harry writing, and patient/family have chosen the home health care agency noted Questions: Agency name and contact information: [facility] Patient location post discharge: home What services are requested: Registered Nurse Start date: 05/21/2016 Responsible MD post discharge contact info: Dr Valencia and PCP Demond standard [EQ135 Custom] As directed Process Instructions: Scheduling Instructions: Comments: Eugene Rueda [address] [facility] [address] (home) Telephone Information: Diagnosis: abdominal pannus with Unsteady gait Patient???s: Hgt: 5' 9 Wgt: 220lbs VENDOR: [employer] Ordering: Front wheel walker Deliver to pt's hospital room #: 321A Questions: Vendor Name/Contact information: [facility] VNA: Discharge Procedure Orders Referral to Home Health - at DISCHARGE Order Comments: DOCUMENTATION FOR VNA SERVICES (INCLUDING THOSE PATIENTS WITH MEDICARE COVERAGE REQUIRING HOME VNA SERVICES AND/OR HOSPICE SERVICES) PATIENT'S LOCATION: Eugene Rueda [address] [place] [address] [address] [facility] [address] (home) Cell: Telephone Information: Radiologist Physician's Name: self In discussion with the attending physician, it is certified that this patient is under their care and that they, or a Nurse Practitioner,Clinical Nurse specialist or Physician Media Theorist And Author Of who is working directly with them, had [...] re health issues HOME HEALTH CARE AGENCY: [facility] PHONE: [phone] FAX: [phone] Start of care: 24 hours after discharge [...] MD [address] / [place] [address] All VNA agencies which cover the area of patient's residence have been reviewed, either verbally harry writing, and patient/family have chosen the home health care agency noted Order Specific Question Answer Comments Agency name and contact information [facility] Patient location post discharge home What [...] 11:20 AM Terri Mak APRN Plastic Surgery [phone] 06/15/2016 9:30 AM [facility] DX ROOM 4 [facility] Xray [phone] Please go to Management Development Specialist Area 3T ([place] Location). 06/15/2016 10:30 AM Pablo Handy PA Orthopaedics [phone] 06/19/2016 11:20 AM Stephanie Ortega MD General Surgery [phone] Future Orders Complete By Expires Referral to Home Health - at DISCHARGE [[id number] CPT(R)] As directed Process Instructions: Scheduling Instructions: Comments: DOCUMENTATION FOR VNA SERVICES (INCLUDING THOSE PATIENTS WITH MEDICARE COVERAGE REQUIRING HOME VNA SERVICES AND/OR HOSPICE SERVICES) PATIENT'S LOCATION: Eugene Ninonigel [address] [place] [address] [address] (home) Cell: Telephone Information: Radiologist Physician's Name: self In discussion with the attending physician, it is certified that this patient is under their care and that they, or a Nurse Practitioner,Clinical Nurse specialist or Physician Media Theorist And Author Of who is working directly with them, had [...] re health issues HOME HEALTH CARE AGENCY: [facility] PHONE: [phone] FAX: [phone] Start of care: 24 hours after discharge [...] PCP: MANOLO CASTRO MD [address] / [facility] [address] All A agencies which cover the area of patient's residence have been reviewed, either verbally harry writing, and patient/family have chosen the home health care agency noted Questions: Agency name and contact information: [facility] Patient location post discharge: home What services are requested: Registered Nurse Start date: 05/21/2016 Responsible MD post discharge contact info: Dr Valencia and PCP Demond standard [EQ135 Custom] As directed Process Instructions: Scheduling Instructions: Comments: Eugene Rueda [address] [place] [address] (home) Telephone Information: Diagnosis: abdominal pannus with Unsteady gait Patient???s: Hgt: 5' 9 Wgt: 220lbs VENDOR: [facility] Ordering: Front wheel walker Deliver to [facility] hospital room #: 321A Questions: [...] called in to our prescription line at [phone]. Narcotic renewals may be requested from 8am-4pm [...] Saturday 8 am to 5 pm Call [phone] On weekends or after hours: Call [phone] and ask the run boat operator to page the Plastic Surgery Resident occupational therapy teacher. documented in this encounter Medications at Time [...] RN - 05/20/2016 6:47 AM EDT 3 [place] Telemetry Note Diagnosis r/t telemetry: Afib Subjective: [...] DVT Px Milton Vu MD 05/18/2016 Pager: [phone] * Kenia Sarabia RN - 05/17/2016 1:15 PM EDT Patient arrived [facility] via bed from PACU s/p abdominoplasty/paniculectomy. Patient AOx 4, HR irregular, lung sounds clear. Patient denies chest pain and SOB. Hypoactive bowel sounds, lbm 8/10, pt DTV [phone]. Denies numbness and tingling. Dressing to abdomen [...] Al MD - 05/17/2016 7:16 AM EDT [facility] Department of General Surgery Interval History and [...] OR MULTIPLE performed by Wally Pfeiffer MDat [facility] ENDOSCOPY ??? Pro upper gi endoscopy, diagnostic 12/25/2013 EGD, UPPER GI ENDOSCOPY performed by Wally Pfeiffer MD at [facility] ENDOSCOPY ??? Pro lap, esophagus, other proc 02/08/2014 LAPAROSCOPIC REVISION OF DELROY FUNDOPLASTY performed by Wally Pfeiffer MD at [facility] MAIN OR ??? Pro lap gastric bypass/monica-en-y 02/08/2014 @LAPAROSCOPIC GASTROPLASTY, performed by Wally Pfeiffer MD at [facility] MAIN OR ??? Pro upper gi endoscopy, diagnostic 02/08/2014 ENDOSCOPY, UPPER GI, DIAGNOSTIC, WITH OR WITHOUT SPECIMENS performed by Wally Pfeiffer MD at [facility] MAIN OR ??? Pro lap, diagnostic abdomen 02/10/2014 LAPAROSCOPY, DIAGNOSTIC, ABDOMEN performed by Wally Pfeiffer MD at [facility] MAIN OR ??? Pro excise excess skin tissue, abdomen N/A 05/17/2016 ABDOMINOPLASTY performed by Karlene Valencia MD at [facility] MAIN OR ??? Pro repair incisional hernia, reducible N/A 05/17/2016 REPAIR INITIAL INCISIONAL OR VENTRAL HERNIA REDUCIBLE performed by Stephanie Ortega MD at [facility] LOVELY ??? N/A 05/17/2016 MODIFIER PANNICULECTOMY performed by Karlene Valencia MD at [facility] MAIN OR Social History: patient , [...] timed interventions: 0 minutes (initial eval) Pager: [phone] JEAN-PAUL HILL PT 05/19/2016 Physical Therapy Rehabilitation [...] Ortega MD - 05/18/2016 1:49 PM EDT [facility] Operative Note Patient Name: Eugene Rueda : [id number] MR#: [id number] Case Date: 05/17/2016 Surgeon: Surgeon(s) and Role: [...] repair (recurrent), with mesh. SURGEON: Dr. Ortega. DESIZING PAD OPERATOR: Shon. Mr. Rueda was seen preoperatively by [...] using a #1 PDS suture in a [id number]-type manner. Interrupted full-thickness sutures were brought through [...] Coverage: yes Primary Insurance: MEDICARE Secondary Insurance: [employer] OOS Prescription Coverage: Insurance as noted [facility]: [phone] Other: n/a Primary Care Provider: MANOLO CASTRO MD [phone] Patient/Caregiver Goals of Treatment: Return home with [...] transition of care planning. CONRAD Warner Pager: [phone] * Plan of Care - Ana Whitlock [...] Valencia MD - 05/17/2016 10:15 AM EDT [facility] Operative Note Patient Name: Eugene Rueda : [id number] MR#: [id number] Case Date: 05/17/2016 Surgeon: Surgeon(s) and Role: [...] then irrigated the abdomen copiously. Two #19 Solomon Islander Rao drains were inserted, 1 on each [...] Operative Note Patient Name: Eugene Rueda : [id number] MR#: [id number] Case Date: 05/17/2016 Surgeon: Surgeon(s) and Role: [...] Procedure Name Priority Date/Time Associated Diagnosis Comments SAMPLE COLLECTOR SCAN 05/21/2016 12:00 AM EDT POCT GLUCOSE [...] in this encounter Results * SCAN DOC: SAMPLE COLLECTOR (05/21/2016 12:00 AM EDT) Anatomical Region Laterality Modality Other Scanning Provider MEDIA MGR SCAN EXT O RDR/RSLT * POCT Glucose (05/20/2016 8:21 AM EDT) Glucose, POC 134 65 - 199 mg/dL [facility] Comment: Supplemental ranges: <140 mg/dL before meals <180 mg/dL all other times of the day Blood specimen (specimen) 05/20/2016 8:21 AM EDT 05/20/2016 8:21 AM EDT Karlene Valencia MD POINT OF CARE TEST O SADIA Performing Organization Address [facility] [[email or web address]] Co de Phone Number [facility] [place] [address] * POCT Glucose (05/19/2016 8:57 PM EDT) Glucose, POC 131 65 - 199 mg/dL [facility] Comment: Supplemental ranges: <140 mg/dL before meals <180 mg/dL all other times of the day Blood specimen (specimen) 05/19/2016 8:57 PM EDT 05/19/2016 8:57 PM EDT Karlene Valencia MD POINT OF CARE TEST O SADIA [facility] [place] [address] * POCT Glucose (05/19/2016 5:02 PM EDT) Glucose, POC 120 65 - 199 mg/dL [facility] Comment: Supplemental ranges: <140 mg/dL before meals <180 mg/dL all other times of the day Blood specimen (specimen) 05/19/2016 5:02 PM EDT 05/19/2016 5:02 PM EDT Karlene Valencia MD POINT OF CARE TEST O RDERABLES Performing Organization Address [facility] [[email or web address]] Co de Phone Number [facility] [place] [address] * POCT Glucose (05/19/2016 11:41 AM EDT) Glucose, POC 140 65 - 199 mg/dL [facility] Comment: Supplemental ranges: <140 mg/dL before meals <180 mg/dL all other times of the day Blood specimen (specimen) 05/19/2016 11:41 AM EDT 05/19/2016 11:41 AM EDT Karlene Valencia MD POINT OF CARE TEST O RDERAALYSHA Performing Organization Address [facility] [[email or web address]] Co de Phone Number [facility] [place] [address] * POCT Glucose (05/19/2016 7:37 AM EDT) Glucose, POC 134 65 - 199 mg/dL [facility] Comment: Supplemental ranges: <140 mg/dL before meals <180 mg/dL all other times of the day Blood specimen (specimen) 05/19/2016 7:37 AM EDT 05/19/2016 7:37 AM EDT Karlene Valencia MD POINT OF CARE TEST O RDERABLES [facility] [place] [address] * POCT Glucose (05/18/2016 8:48 PM EDT) Glucose, POC 173 65 - 199 mg/dL [facility] Comment: Supplemental ranges: <140 mg/dL before meals <180 mg/dL all other times of the day Blood specimen (specimen) 05/18/2016 8:48 PM EDT 05/18/2016 8:48 PM EDT Karlene Valencia MD POINT OF CARE TEST O RDERAALYSHA [facility] [place] [address] * POCT Glucose (05/18/2016 4:45 PM EDT) Glucose, POC 125 65 - 199 mg/dL [facility] Comment: Supplemental ranges: <140 mg/dL before meals <180 mg/dL all other times of the day Blood specimen (specimen) 05/18/2016 4:45 PM EDT 05/18/2016 4:45 PM EDT Karlene Valencia MD POINT OF CARE TEST O DYLANERAALYSHA [facility] [place] [address] * POCT Glucose (05/18/2016 12:14 PM EDT) Glucose, POC 137 65 - 199 mg/dL [facility] Comment: Supplemental ranges: <140 mg/dL before meals <180 mg/dL all other times of the day Blood specimen (specimen) 05/18/2016 12:14 PM EDT 05/18/2016 12:14 PM EDT Karlene Valencia MD POINT OF CARE TEST O RDERAALYSHA [facility] [place] [address] * POCT Glucose (05/18/2016 8:09 AM EDT) Glucose, POC 178 65 - 199 mg/dL [facility] Comment: Supplemental ranges: <140 mg/dL before meals <180 mg/dL all other times of the day Blood specimen (specimen) 05/18/2016 8:09 AM EDT 05/18/2016 8:09 AM EDT Karlene Valencia MD POINT OF CARE TEST O RDERABLES [facility] [place] [address] * POCT Glucose (05/17/2016 9:32 PM EDT) Glucose, POC 172 65 - 199 mg/dL [facility] Comment: Supplemental ranges: <140 mg/dL before meals <180 mg/dL all other times of the day Blood specimen (specimen) 05/17/2016 9:32 PM EDT 05/17/2016 9:32 PM EDT Karlene Valencia MD POINT OF CARE TEST O RDERAALYSHA [facility] [place] [address] * POCT Glucose (05/17/2016 4:14 PM EDT) Glucose, POC 186 65 - 199 mg/dL [facility] Comment: Supplemental ranges: <140 mg/dL before meals <180 mg/dL all other times of the day Blood specimen (specimen) 05/17/2016 4:14 PM EDT 05/17/2016 4:14 PM EDT Karlene Valencia MD POINT OF CARE TEST O RDERAALYSHA [facility] [place] [address] * POCT Glucose (05/17/2016 10:41 AM EDT) Glucose, POC 185 65 - 199 mg/dL [facility] Comment: Supplemental ranges: <140 mg/dL before meals <180 mg/dL all other times of the day Blood specimen (specimen) 05/17/2016 10:41 AM EDT 05/17/2016 10:41 AM EDT Karlene Valencia MD POINT OF CARE TEST O SADIA Performing Organization Address [facility] [[email or web address]] Co de Phone Number [facility] [place] [address] * POCT Glucose (05/17/2016 6:40 AM EDT) Glucose, POC 131 65 - 199 mg/dL [facility] Comment: Supplemental ranges: <140 mg/dL before meals <180 mg/dL all other times of the day Blood specimen (specimen) 05/17/2016 6:40 AM EDT 05/17/2016 6:40 AM EDT Karlene Valencia MD POINT OF CARE TEST Pat MCCULLOUGH Performing Organization Address [facility] de Phone Number [facility] [place] [address] * Prothrombin Time (05/17/2016 5:56 AM EDT) Prothrombin Time 14.6 12.0 - 15.0 sec [facility] Comment: An INR <2.0 indicates [...] International Normalization Ratio 1.1 0.9 - 1.1 [facility] Blood specimen (specimen) 05/17/2016 5:56 AM EDT 05/17/2016 6:33 AM EDT Narrative Resulting Agency Comment Spec In Lab Karlene Valencia MD HEMATOLOGY ORDERABLE S [facility] [place] [address] documented in this encounter Visit Diagnoses Not on filedocumented in this encounter Administered Medications Inactive Administered Medications - up to 3 most recent administrations Medication Order MAR Action Action Date Dose Rate Site acetaminophen (TYLENOL) tablet 650 mg 650 mg, Oral, EVERY 6 HOURS SCHEDULED, First dose on Sat05/17/16 at 1300, Until Discontinued, Maximum dose of [...] NIGHTLY, First dose (after last modification) on [facility] 05/17/16 at 2215, Until Discontinued, CORRECTION BOLUS [...] Dianelys Farrell, FRACISCO)0620 (Given - Provider: Dianelys Farrell, FRACISCO) ceFAZolin (ANCEF) 1g in dextrose 5% 50mL [...] RN) 0116 (Given - Provider: Dianelys Farrell, FRACISCO)0900 (Not Given - Provider: Tatianna [place] RN [...] Routine 0856 (Given - Provider: Shea Dixon RN)2141 (Given - Provider: Aida Malone RN) 0808 (Given - Provider: Shea Dixon RN)2124 (Given - Provider: Dianelys Farrell RN) 0859 [...] met - Comment: BS 125, insulin not indicated)2141 (Given - Provider: Aida Malone RN) 0730 [...] Shea Dixon RN)2124 (Given - Provider: Dianelys Farrell RN) 0859 (Given - Provider: Tatianna [place] RN) sodium chloride 0.9 % flush 5 mL 5 mL, Intravenous, 2 TIMES DAILY, First dose on [place] 05/17/16 at 1315, Until Discontinued, Recovery (Recovery-Hospital Unit), Routine 0856 (Given - Provider: Shea Dixon RN)214 (Given - Provider: Aida Malone RN) 0809 (Given - Provider: Shea Dixon RN)212 (Given - Provider: Dianelys Farrell RN) 0900 (Not Given - Provider: Tatianna [place] RN - Reason: See comment - Comment: IV site removed r/t d/c) terazosin (HYTRIN) capsule 2 mg 2 mg, Oral, NIGHTLY, First dose on [place] 05/17/16 at 2100, Until Discontinued, Routine 2141 (Given - Provider: Aida Malone RN) 2123 (Given - Provider: Dianelys Farrell RN) venlafaxine (EFFEXOR-XR) XR Capsule 75 mg 75 mg, Oral, DAILY, First dose on [place] 05/17/16 at 1400, Until Discontinued, DO NOT CRUSH OR OPEN, Routine 0855 (Given - Provider: Shea Dixon, RN) 0808 (Given - Provider: Shea Dixon [...] sufficient., Routine 1703 (Given - Provider: Shea Dixon, FRACISCO) dextrose 50% injection 25-50 mL(Linked Group 2) [...] Starting on [place] 05/17/16 at 1250, Until Sun 8 at 1206, for discomfort with PIV insertion, Recovery (Recovery-Hospital Unit), Routine ondansetron (ZOFRAN) injection 4 mg(Linked Group 3) 4 mg, Intravenous, EVERY 8 HOURS PRN, Starting on [place] 05/17/16 at 1250, Until Sun 8 at 1206, Nausea, May repeat times one in 30 minutes if ineffective. If multiple antiemetics are ordered, use ondanstron first, Recovery (Recovery-Hospital Unit) ondansetron (ZOFRAN) tablet 4 mg(Linked Group 3) 4 mg, Oral, EVERY 8 HOURS PRN, Starting on [place] 05/17/16 at 1250, Until Sun 8 at 1206, Nausea, Vomiting, If multiple antiemetics [...] Oral, EVERY 4 HOURS PRN, Starting on Sat05/17/16 at 1250, Until 05/20/16 at 1206, Pain, moderate pain 4-7, Routine 0604 (Given - Provider: Ana Whitlock, RN)0854 (Given - Provider: Shea Dixon, RN)2141 (Given - Provider: Aida Malone RN) 0058 (Given - Provider: Aida Malone RN)0550 (Given - Provider: Aida Malone RN) sodium chloride 0.9 % flush 5-20 mL 5-20 mL, Intravenous, EVERY 1 MIN PRN, Starting on Sat05/17/16 at 1250, Until 05/20/16 at 1206, flush, [...] Unit) documented in this encounter Care Teams Voice Network Administrator Relationship Specialty Start Date End Date Manolo Castro MD [address] [place] [address] PCP - General 05/14/12 04/21/17 documented as of this encounter
--- OUTSIDE RECORDS SUMMARY | 2024-06-09 09:19 | XMS_ITS | Encounter Summary ---
Author Organization [facility] Address [facility] [place] [address] Care Team Providers Care Funeral Pre Arrangement Counselor Name Role Phone Manolo Castro MD Primary Care Provider [phone] Reason for Visit * Reason Onset Date Comments Bumped Appointment 05/10/2016 Encounter Details Date Type Department Care Team (Late st Contact Info) Description 05/10/2016 Telephone [place] [address] Pablo Handy PA [facility] [place] [address] Bumped Appointment Social History Tobacco Use Types [...] EDT LMOM #1 to call to reschedule guillermoruben 06/08 appointment with Pablo. documented in this encounter Plan of Treatment Not on file documented as of this encounter Visit Diagnoses Not on filedocumented in this encounter Care Teams Funeral Pre Arrangement Counselor Relationship Specialty Start Date End Date Manolo Castro MD [address] [place] [address] PCP - General 05/14/12 04/21/17 documented as of this encounter
--- OUTSIDE RECORDS SUMMARY | 2024-06-09 09:19 | XMS_ITS | Encounter Summary ---
Author Organization [facility] [place] [address] Care Team Providers Care Microbiology Soil Scientist Name Role Phone Dominic Restrepo MD Primary Care Provider [phone] Reason for Visit * Reason Comments Follow-up Bariatric Surgery Pr lexi follow up Encounter Details Date Type Department Care Team (Late Contact Info) Description 04/22/2017 9:30 AM EDT Office [place] [address] Narda Allen, [facility] [place] [address] Disorder of iron metabolism; [...] Keila Hickman - 04/22/2017 9:30 AM EDT [facility] Admin coordinator Tracy: [phone] Dietitian: [phone] Surgeons/ nurse practitioner: [phone] Nurse line: [phone] Keep up the good work! Testing: Labwork: Today. Go to [facility], which is 1 flight below the General Surgery Clinic. Please note that you will always receive a letter with lab results and recommendations. Please readthis letter carefully and follow recommendations. The letter also contains information regarding your next lab draw. A copy of your labwork and office visit today is sent to your primary healthcare translator Consider seeing a orthopedic doctor for your knee pain Wear suspenders instead of a belt to help with skin breakdown Next visit: 1 year Routine visits are done at 4.8,12, 18 and 24 months after surgery, and yearly thereafter. Please call [phone] if you do not receive an appointment [...] of every month from 1-2 PM at [facility]- no registration required Nutrition and Activity apps- Baritastic, My Fitness Pal, Lose It, My Plate Internet resources: www.OrthoFi www.[employer]. 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 Pfeiffer) 02/08/2014 ??? Diagnostic laparoscopy, evacuation of intra-abdominal blood 02/10/2014 ??? Laparoscopic paraesophageal hernia repair and Ronnell fundoplication 07/16/2002 ??? Panniculectomy and repair of ventral hernia 13 x [address] mesh (Dr[address] Butcher) 05/18/2016 ??? Laparoscopic umbilical hernia repair with Bard Ventrio ST circular mesh (11.4 cm in diameter) at [facility] 10/15/2012 ??? Vasectomy ??? Right carpal tunnel release ~2007 ??? Septoplasty, Bilateral inferior turbinoplasty, Uvulopalatopharyngoplasty 08/25/1999 ??? Tonsillectomy ~1955 ??? Bilateral total knee arthroplasty 12/16/2002 No Known Allergies Medications 04/25/17 3787 Medication Sig Taking? 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 Questions regarding [facility] Bariatric Surgery Program patients: please call Shayy Allen APRN at [phone] or [phone] beeper [phone]. E-mail: [email or web address] * Keila Hickman - 04/22/2017 9:30 AM [...] Biggest support is his son Momo. 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 Vitamin/Mineral Supplements (reported by [...] whole grain or white AM Snack Lunch [place] with tuna or chicken salad or lean [...] Intestinal malabsorption, unspecified type COMPREHENSIVE METABOLIC PANEL Routine 04/22/2017 11:18 AM EDT Status post bariatric surgery Intestinal malabsorption, unspecified type Essential hypertension Obstructive sleep apnea documented in this encounter Results * PTH (04/22/2017 11:18 AM EDT) Parathyroid Hormone 61 15 - 65 pg/mL [facility] Blood specimen (specimen) 04/22/2017 11:18 AM EDT 04/22/2017 11:25 AM EDT Narrative Resulting Agency Comment Spec In Lab Narda Cabelloey [facility] ORDERAB LES Performing Organization Address City/[facility]/ZIP Co de Phone Number [facility] [place] [address] * (ABNORMAL) Vitamin B12 (04/22/2017 11:18 AM EDT) Vitamin B12 1,379(H) 207 - 974 pg/mL [facility] Blood specimen (specimen) 04/22/2017 11:18 AM EDT 04/22/2017 11:25 AM EDT Narrative Resulting Agency Comment Spec In Lab Narda Paniaguaigley [employer] [employer]MI[employer] ORDERAB LES Performing Organization Address [facility]/ZIP Co de Phone Number [facility] [place] [address] * Vitamin D, 25-Hydroxy (04/22/2017 11:18 AM EDT) Vitamin D Total 25 OH 48 30 - 100 ng/mL [facility] Comment: Deficient <10 ng/mL Insufficient 10 to 29 ng/mL Sufficient 30 to 100 ng/mL Potential Intoxication >100 ng/mL According to the [place] National Osteoporosis Foundation, Vitamin D concentrations >30 ng/mL are sufficient to protect bone health. ??The National Kidney Foundation has similarly stated that patients with Vitamin D concentrations <30ng/mL should be considered to be insufficient or deficient. http://Abiogenix.Student Designed/nkf-guidelines http://Abiogenix.Student Designed/nejm-VitD The IDS iSYS Vitamin D Immunoassay detects both 25-OH Vitamin D2 and 25-OH Vitamin D3, but only a total Vitamin D concentration is reported. Blood specimen (specimen) 04/22/2017 11:18 AM EDT 04/22/2017 1:19 PM EDT Narrative Resulting Agency Comment Spec In Lab Narda Keita Tiffany [facility] [employer] ORDERAB LES Performing Organization Address City/[facility]/ZIP Co de Phone Number [facility] [place] [address] * (ABNORMAL) Ferritin (04/22/2017 11:18 AM EDT) Ferritin 27(L) 30 - 400 ng/mL [facility] Comment: Pediatric reference ranges not verified at [facility], interpret with caution. Reference ranges for females greater than 50 years of age approach values for men, i.e., 30-400 ng/mL. Blood specimen (specimen) 04/22/2017 11:18 AM EDT 04/22/2017 11:25 AM EDT Narrative Resulting Agency Comment Spec In Lab Narda T Tiffany [employer] [employer] ORDERAB LES Performing Organization Address City/[facility]/ZIP Co de Phone Number [facility] [place] [address] * (ABNORMAL) Iron and TIBC (04/22/2017 11:18 AM EDT) [facility] Iron 55 45 - 160 mcg/dL [facility] TIBC 353 250 - 450 mcg/dL [facility] Iron Saturation 16(L) 20 - 50 % [facility] Blood specimen (specimen) 04/22/2017 11:18 AM EDT 04/22/2017 11:25 AM EDT Narrative Resulting Agency Comment Spec In Lab Nardadorys Paniaguaigley [employer] [employer] ORDERAB LES Performing Organization Address City/[facility]/ZIP Co de Phone Number [facility] [place] [address] * (ABNORMAL) Comprehensive metabolic panel (non-fasting) (04/22/2017 11:18 AM EDT) [facility] Glucose 123 65 - 199 mg/dL [facility] Comment:Diabetes: >=200 mg/d L plus symptoms Blood Urea Nitrogen 23(H) 10 - 20 mg/dL [facility] Creatinine 1.05 0.80 - 1.50 mg/dL [facility] Comment: Please note that the pediatric reference intervals supplied above were not validated at [facility]. Results from pediatric patients should be interpreted in conjunction to the patient's age, height and muscle mass. Sodium 142 135 - 145 mmol/L [facility] Potassium 4.0 3.5 - 5.0 mmol/L [facility] Comment: Please note: ??Patients with WBC >100,000 may have falsely elevated Potassium levels. ??For accurate Potassium quantification in these patients send serum separator tube (gold top) for subsequent determinations. ??Contact the Clinical Chemistry Laboratory if there are any questions. Chloride 101 98 - 107 mmol/L [facility] Carbon Dioxide 25 22 - 31 mmol/L [facility] Anion Gap 16(H) 5 - 15 mmol/L [facility] Calcium 9.3 8.5 - 10.5 mg/dL [facility] Protein, Total 7.4 6.1 - 8.0 gm/dL [facility] Albumin 4.3 3.2 - 5.2 gm/dL [facility] Aspartate Aminotransferase 13 0 - 39 unit/L [facility] Alanine Aminotransferase 20 0 - 55 unit/L [facility] Alkaline Phosphatase 58 40 - 120 unit/L [facility] Bilirubin, Total 0.5 0.2 - 1.3 mg/dL [facility] Est Glomerular Filtration Rate >60 >=60 [facility] Comment: This estimated GFR (eGFR) [...] the following links into your internet browser. http://Abiogenix.Student Designed/DHnkdep [email or web address]://Abiogenix.Student Designed/DHMCnkf Blood specimen (specimen) 04/22/2017 11:18 AM EDT 04/22/2017 11:25 AM EDT Narrative Resulting Agency Comment Spec In Lab Narda T Tiffany [facility] ORDERAB LES Performing Organization Address City/[facility]/ZIP Co de Phone Number [facility] [place] [address] * (ABNORMAL) Hemogram (04/22/2017 11:18 AM EDT) White Blood Cell 7.0 4.0 - 9.5 x10(3)/mc L [facility] Red Blood Cell 4.49(L) 4.58 - 5.54 x10(6)/mc L [facility] Hemoglobin 12.7(L) 13.7 - 16.5 gm/dL [facility] Hematocrit 39.2(L) 40.5 - 48.5 % [facility] Mean Cell Volume 87.3 82.9 - 93.1 fL [facility] Mean Cell Hemoglobin 28.3 27.5 - 32.1 pg [facility] Mean Cell Hemoglobin Concentration 32.4 32.0 - 35.7 gm/dL [facility] Platelet 194 145 - 357 x10(3)/mc L [facility] RDW Standard Deviation 48.4(H) 36.0 - 45.0 fL [facility] RDW coefficient of variation 15.1(H) 11.4 - 13.8 % [facility] Mean Platelet Volume 10.0 7.6 - 12.9 fL [facility] NRBC% auto 0.0 % [facility] NRBC Absolute 0.000 0.000 - 0.000 x10(3)/mc L [facility] Blood specimen (specimen) 04/22/2017 11:18 AM EDT 04/22/2017 11:25 AM EDT Narrative Resulting Agency Comment Spec In Lab Narda Allen APRN HEMATOLOGY ORDERA BLES Performing Organization Address City/[facility]/ZIP Co de Phone Number [facility] [place] [address] documented in this encounter Visit Diagnoses Diagnosis Disorder of iron metabolism Other disorders of iron metabolism Status post bariatric surgery Bariatric surgery status Intestinal malabsorption, unspecified type Essential hypertension Unspecified essential hypertension Obstructive sleep apnea Obstructive sleep apnea (adult) (pediatric) Vitamin D deficiency Unspecified vitamin D deficiency documented in this encounter Care Teams Microbiology Soil Scientist Relationship Specialty Start Date End Date Dominic Restrepo MD [address] [place] [address] PCP - General Family Medicine 04/22/17 03/30/21 documented as of this encounter
--- OUTSIDE RECORDS SUMMARY | 2024-06-09 09:19 | XMS_ITS | Encounter Summary ---
Author Organization [facility] Address [facility] [place] [address] Care Team Providers Care Patient Registration Clerk Name Role Phone Manolo Castro MD Primary Care Provider [phone] Encounter Details Date Type Department Care Team (Latest Contact Info) Description 07/31/2016 9:10 AM EDT - 07/31/2016 11:59 PM EDT Hospital Encounter XRay at [address] [place] [address] Carmelo Perla MD [facility] [place] [address] H/O total knee replacement, bilateral Discharge Disposition: [...] bilateral documented in this encounter Care Teams Patient Registration Clerk Relationship Specialty Start Date End Date Manolo Castro MD [address] [place] [address] PCP - General 05/14/12 04/21/17 documented as of this encounter
--- OUTSIDE RECORDS SUMMARY | 2024-06-09 09:19 | XMS_ITS | Encounter Summary ---
Author Organization [facility] [place] [address] Care Team Providers Care Residential Leasing Agent Name Role Phone Manolo Castro MD Primary Care Provider [phone] Reason for Visit * Reason Onset Date Comments Follow-up 07/16/2014 Encounter Details Date Type Department Care Team (Late Contact Info) Description 07/16/2014 Telephone [place] [address] Narda Allen, CARTON MAKING MACHINE OPERATOR [facility] [place] [address] Follow-up Social History Tobacco Use Types Packs/Day [...] on filedocumented in this encounter Care Teams Residential Leasing Agent Relationship Specialty Start Date End Date Manolo Castro MD [address] [place] [address] PCP - General 05/14/12 04/21/17 documented as of this encounter
--- OUTSIDE RECORDS SUMMARY | 2024-06-09 09:19 | XMS_ITS | Encounter Summary ---
[place] [address] Care Team Providers Care Kennel Helper Name Role Phone Manolo Castro MD Primary Care Provider [phone] Encounter Details Date Type Department Care Team (Late st Contact Info) Description 01/13/2016 Telephone [place] [phone] Kenyatta Mcclure Social History Tobacco Use Types Packs/Day Years [...] on filedocumented in this encounter Care Teams Kennel Helper Relationship Specialty Start Date End Date Manolo Castro MD [address] [place], [place] [id number] PCP - General 05/14/12 04/21/17 documented as of this encounter
--- OUTSIDE RECORDS SUMMARY | 2024-06-09 09:19 | XMS_ITS | Encounter Summary ---
Author Organization [facility] Address [facility] [place] [address] Care Team Providers Care Principal Bioinformatics Specialist Name Role Phone Manolo Castro MD Primary Care Provider [phone] Reason for Visit * Reason Onset Date Comments Reminder Appointment 03/27/2016 Encounter Details Date Type Department Care Team (Late Contact Info) Description 03/27/2016 [place] [id number] Pablo Handy PA [facility] [place] [address] Reminder Appointment Social History Tobacco Use Types [...] LMOM #1 to call to schedule May appointment documented in this encounter Plan of Treatment Not on file documented as of this encounter Visit Diagnoses Not on filedocumented in this encounter Care Teams Principal Bioinformatics Specialist Relationship Specialty Start Date End Date Manolo Castro MD [address] [place] [address] PCP - General 05/14/12 04/21/17 documented as of this encounter
--- OUTSIDE RECORDS SUMMARY | 2024-06-09 09:19 | XMS_ITS | Encounter Summary ---
Author Organization [facility] [place] [address] Care Team Providers Care Stab Setter And Driller Name Role Phone Manolo Castro MD Primary Care Provider [phone] Reason for Referral * Consultation (Routine) - Specialty Diagnoses / Procedures Referred By Sonal dawson Referred To Contact Plastic Surgery Diagnoses Status post bariatric surgery Intestinal malabsorption, unspecified type Symptomatic abdominal panniculus Narda Allen, MIGUEL [facility] [place] [address] Adis Membreno MD [facility] [place] [address] Referral ID Status Reason Start Date Expiration Date V isits Requested Visits Authorized [id number] Consult, Test & Treat 12/08/2015 12/07/2016 1 1 Encounter Details Date Type Department Care Team (Latest Contact Info) Description 12/08/2015 10:30 AM EST Office [place] [address] Narda Allen MORTGAGE LOAN COORDINATOR [facility] [place] [address] Disorder of iron metabolism; Status post bariatric [...] Keila Hickman - 12/08/2015 10:58 AM EST [facility] Admin coordinator Tracy: [phone] Dietitian: [phone] Surgeons/ nurse practitioner: [phone] Nurse line: [phone] Your excess body weight lost: 41.7% Keep up the hard work! Testin. Labwork: Today. Go to Surgical Brace Maker Area 3L, which is 1 flight below [...] after surgery, and yearly thereafter. Please call [phone] if you do not receive an appointment [...] of every month from 1-2 PM at [facility]- no registration required Back on Track group visits [facility]- call Tracy to register [phone] Internet resources: www.FSP Instruments www.Revolver www.goCatch www.Onyx Group (adelfo Hernandez) https://www.Blue Flame Data.com/[facility]SABariatricSurgery Books & Magazines: - Recipes for Life After Weight Loss Surgery by Claudia Mcdonald - Shrink Yourself by Dr Darrel Kaur - Nutrition Action Health Letter subscribe at [email or web address] - Eating Well - Cooking Light documented [...] circular mesh (11.4 cm in diameter) at [facility] 10/15/2012 ??? Vasectomy ??? Right carpal tunnel release ~2007 ??? Septoplasty, Bilateral inferior turbinoplasty, Uvulopalatopharyngoplasty 08/25/1999 ??? Tonsillectomy ~1955 ??? 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 Questions regarding [facility] Bariatric Surgery Program patients: please call Shayy Allen APRN at [phone] or [phone]. E-mail: [email or web address] * Keila Hickman - 12/07/2015 3:36 PM [...] states. Biggest support is his son Momo. 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 Vitamin/Mineral Supplements (reported by patient): [...] per day: 50-65 grams Calories per day: 9753-5840 kcal Hydrating Fluids: 3-5 12 oz bottles [...] malabsorption, unspecified type [K90.9] COMPREHENSIVE METABOLIC PANEL Routine 12/08/2015 11:50 AM EST Status post bariatric surgery Intestinal malabsorption, unspecified type [K90.9] Obstructive sleep apnea Hyperlipidemia, unspecified hyperlipidemia type [E78.5] documented in this encounter Results * (ABNORMAL) Hemoglobin A1c (12/08/2015 11:50 AM EST) [facility] Hemoglobin A1c 6.9(H) 4.3 - 5.6 % [facility] Comment: Reference Range: 4.3 - 5.6% [...] Mellitus, Diabetes Care 2013; 36: Suppl. 1, I49-23 Estimated Average Glucose 151 mg/dL [facility] Comment: eAG equivalents for HbA1c percentages: HbA1c(%) ?eAG(mg/dL) 6.0 ?126 6.5 ?140 7.0 ?154 7.5 ?169 8.0 ?183 8.5 ?197 9.0 ?212 9.5 ?226 10.0 ? 240 Limitations: The eAG calculation has not been validated on women, individuals below 18 years old and above 70 years old, and individuals with hemoglobinopathies. Additional resources are available on the ADA website: http://Pollen.Omnigy/DHMCadacalc Keyon MACHADO, Buddy J, Maynor R, et al. ??Translating the A1C assay into estimated average glucose values. ??Diabetes Care 2008:31(8):1487-9242. Blood specimen (specimen) 12/08/2015 11:50 AM EST 12/08/2015 11:58 AM EST Narrative Resulting Agency Comment Spec In Lab Wally Pfeiffer MD CHEMISTRY ORDERABLE S Performing Organization Address [facility] Co de Phone Number [facility] [place] [address] * TSH (12/08/2015 11:50 AM EST) Thyroid Stimulating Hormone 2.80 0.27 - 4.20 mcIU/mL [facility] Blood specimen (specimen) 12/08/2015 11:50 AM EST 12/08/2015 11:58 AM EST Narrative Resulting Agency Comment Spec In Lab Wally Pfeiffer MD CHEMISTRY ORDERABLE S Performing Organization Address [facility] de Phone Number [facility] [place] [address] * Folate, serum (12/08/2015 11:50 AM EST) Pathologist [facility] Folate 19.4 4.6 - 34.8 ng/mL [facility] Blood specimen (specimen) 12/08/2015 11:50 AM EST 12/08/2015 11:58 AM EST Narrative Resulting Agency Comment Spec In Lab Wally Pfeiffer MD CHEMISTRY ORDERABLE S Performing Organization Address City/[facility]/ZIP Co de Phone Number [facility] [place] [address] * (ABNORMAL) Vitamin B12 (12/08/2015 11:50 AM EST) [facility] Vitamin B12 1,487(H) 207 - 974 pg/mL [facility] Blood specimen (specimen) 12/08/2015 11:50 AM EST 12/08/2015 11:58 AM EST Narrative Resulting Agency Comment Spec In Lab Wally Pfeiffer MD CHEMISTRY ORDERABLE S Performing Organization Address [facility] Co de Phone Number [facility] [place] [address] * Vitamin B1, whole blood (12/08/2015 11:50 AM EST) [facility] Vit B1 Lvl Wb (FEBRUARY) 143 70 - 180 nmol/L [facility] Comment: Test Performed by: [facility] [address], [place] [address] Vending Technician: Bronwyn Hoyos, Ph.D. Blood specimen (specimen) 12/08/2015 11:50 AM EST 12/08/2015 1:29 PM EST Narrative Resulting Agency Comment Spec In Lab Wally Pfeiffer MD LAB SEND OUT ORDERA BLES Performing Organization Address City/[facility] Co de Phone Number [facility] [place] [address] * VIT D Total Evaluation (12/08/2015 11:50 AM EST) [facility] Vitamin D Total 25 OH 44 30 - 100 ng/mL [facility] Comment: Deficient <10 ng/mL Insufficient 10 to 29 ng/mL Sufficient 30 to 100 ng/mL Potential Intoxication >100 ng/mL According to the US National Osteoporosis Foundation, Vitamin D concentrations >30 ng/mL are sufficient to protect bone health. ??The National Kidney Foundation has similarly stated that patients with Vitamin D concentrations <30ng/mL should be considered to be insufficient or deficient. http://Eduson/[facility] TULSAnatlkidneyfoundation http://Eduson/[facility]LAHOMA SURGICAL HOSPITAL – TULSAVitD The IDS iSYS Vitamin D Immunoassay detects both 25-OH Vitamin D2 and 25-OH Vitamin D3, but only a total Vitamin D concentration is reported. Blood specimen (specimen) 12/08/2015 11:50 AM EST 12/08/2015 11:58 AM EST Narrative Resulting Agency Comment Spec In Lab Wally Pfeiffer MD CHEMISTRY ORDERABLE S Performing Organization Address City/[facility]/ZIP Co de Phone Number [facility] [place] [address] * (ABNORMAL) PTH (12/08/2015 11:50 AM EST) Parathyroid Hormone 87(H) 15 - 65 pg/mL [facility] Blood specimen (specimen) 12/08/2015 11:50 AM EST 12/08/2015 11:58 AM EST Narrative Resulting Agency Comment Spec In Lab Wally Pfeiffer MD CHEMISTRY ORDERABLE S Performing Organization Address City/[facility]/ZIP Co de Phone Number [facility] [place] [address] * Ferritin (12/08/2015 11:50 AM EST) Ferritin 72 30 - 400 ng/mL [facility] Comment: Pediatric reference ranges not verified at [facility], interpret with caution. Reference ranges for females greater than 50 years of age approach values for men, i.e., 30-400 ng/mL. Blood specimen (specimen) 12/08/2015 11:50 AM EST 12/08/2015 11:58 AM EST Narrative Resulting Agency Comment Spec In Lab Wally Pfeiffer MD CHEMISTRY ORDERABLE S Performing Organization Address [facility] Co de Phone Number [facility] [place] [address] * (ABNORMAL) Iron and TIBC (12/08/2015 11:50 AM EST) Iron 50 45 - 160 mcg/dL [facility] TIBC 321 250 - 450 mcg/dL [facility] Iron Saturation 16(L) 20 - 50 % [facility] Blood specimen (specimen) 12/08/2015 11:50 AM EST 12/08/2015 11:58 AM EST Narrative Resulting Agency Comment Spec In Lab Wally Pfeiffer MD CHEMISTRY ORDERABLE S Performing Organization Address [facility] de Phone Number [facility] [place] [address] * (ABNORMAL) Comprehensive metabolic panel (non-fasting) (12/08/2015 11:50 AM EST) [facility] Glucose 146 65 - 199 mg/dL [facility] Comment:Diabetes: >=200 mg/d L plus symptoms Blood Urea Nitrogen 18 10 - 20 mg/dL [facility] Creatinine 1.20 0.80 - 1.50 mg/dL [facility] Comment: Please note that the pediatric reference intervals supplied above were not validated at [facility]. Results from pediatric patients should be interpreted in conjunction to the patient's age, height and muscle mass. Sodium 143 135 - 145 mmol/L [facility] Potassium 4.4 3.5 - 5.0 mmol/L [facility] Comment: Please note: ??Patients with WBC >100,000 may have falsely elevated Potassium levels. ??For accurate Potassium quantification in these patients send serum separator tube (gold top) for subsequent determinations. ??Contact the Clinical Chemistry Laboratory if there are any questions. Chloride 105 98 - 107 mmol/L [facility] Carbon Dioxide 22 22 - 31 mmol/L [facility] Anion Gap 16(H) 5 - 15 mmol/L [facility] Calcium 8.9 8.5 - 10.5 mg/dL [facility] Protein, Total 7.2 6.1 - 8.0 gm/dL [facility] Albumin 4.3 3.2 - 5.2 gm/dL [facility] Aspartate Aminotransferase 23 0 - 39 unit/L [facility] Alanine Aminotransferase 24 0 - 55 unit/L [facility] Alkaline Phosphatase 59 40 - 120 unit/L [facility] Bilirubin, Total 0.3 0.2 - 1.3 mg/dL [facility] Bilirubin, Direct 0.1 0.0 - 0.3 mg/dL [facility] Est Glomerular Filtration Rate >60 >=60 [facility] Comment: This estimated GFR [...] the following links into your internet browser. [email or web address]/DHnkdep [email or web address]/DHMCnkf Blood specimen (specimen) 12/08/2015 11:50 AM EST 12/08/2015 11:58 AM EST Narrative Resulting Agency Comment Spec In Lab Wally Pfeiffer MD CHEMISTRY ORDERABLE S [facility] [place] [place] [address] * (ABNORMAL) Hemogram (12/08/2015 11:50 AM EST) White Blood Cell 7.6 4.0 - 10.0 x10(3)/mc L [facility] Red Blood Cell 4.35(L) 4.63 - 6.08 x10(6)/mc L [facility] Hemoglobin 13.0(L) 13.7 - 17.5 gm/dL [facility] Hematocrit 38.4(L) 40.0 - 51.0 % [facility] Mean Cell Volume 88.3 79.0 - 92.0 fL [facility] Mean Cell Hemoglobin 29.9 25.6 - 32.2 pg [facility] Mean Cell Hemoglobin Concentration 33.9 32.0 - 36.5 gm/dL [facility] Platelet 199 145 - 370 x10(3)/mc L [facility] RDW Standard Deviation 47.4(H) 35.0 - 46.0 fL [facility] RDW coefficient of variation 14.7(H) 10.9 - 14.4 % [facility] Mean Platelet Volume 9.8 9.0 - 12.0 fL [facility] Blood specimen (specimen) 12/08/2015 11:50 AM EST 12/08/2015 11:58 AM EST Narrative Resulting Agency Comment Spec In Lab Wally Pfeiffer MD HEMATOLOGY ORDERABL ES Performing Organization Address City/State/[facility] Co de Phone Number [facility] [place] [address] documented in this encounter Visit Diagnoses Diagnosis [...] uncontrolled documented in this encounter Care Teams Stab Setter And Driller Relationship Specialty Start Date End Date Manolo Castro MD [address] [place] [address] PCP - General 05/14/12 04/21/17 documented as of this encounter
--- OUTSIDE RECORDS SUMMARY | 2024-06-09 09:19 | XMS_ITS | Encounter Summary ---
Author Organization [facility] [place] [address] Care Team Providers Care Adjunct Phlebotomy Instructor Name Role Phone Manolo Castro MD Primary Care Provider [phone] Reason for Visit * Reason Onset Date Comments Other 11/11/2015 Encounter Details Date Type Department Care Team ([facility] Contact Info) Description 11/11/2015 Telephone [place] [address] Narda Allen, SUPERVISOR [facility] [place] [address] Other Social History Tobacco Use Types Packs/Day [...] on filedocumented in this encounter Care Teams Adjunct Phlebotomy Instructor Relationship Specialty Start Date End Date Manolo Castro MD [address] [place] [address] PCP - General 05/14/12 04/21/17 documented as of this encounter
--- OUTSIDE RECORDS SUMMARY | 2024-06-09 09:19 | XMS_ITS | Encounter Summary ---
[place] [address] Care Team Providers Care Health Support Specialist Name Role Phone Manolo Castro MD Primary Care Provider [phone] Encounter Details Date Type Department Care Team (Late st Contact Info) Description 02/17/2014 Telephone [place] [address] [address] Deutsch, [place] [address] Social History Tobacco Use Types Packs/Day Years [...] hospitalization: large port site hematoma María Elena Rueda was called via phone for post discharge follow up. Patient reports he feels great, went for 1/2 mile walk already today. Diet: stage: II Fluids: 48+ oz, always carrying a water bottle. Some milk, rarely juice Protein: 60grams/day per patient Eating babyfood- mostly veggies, fruit, turkey baby food. Has 1-2 protein shakes per day, also lao yogurt, sugar free pudding. Other: Nausea/ vomiting: [...] on filedocumented in this encounter Care Teams Health Support Specialist Relationship Specialty Start Date End Date Manolo Castro MD [address] [place] [address] PCP - General 05/14/12 04/21/17 documented as of this encounter
--- OUTSIDE RECORDS SUMMARY | 2024-06-09 09:19 | XMS_ITS | Encounter Summary ---
Author Organization [facility] Address [facility] [place] [address] Care Team Providers Care Commodity Merchant Name Role Phone Manolo Castro MD Primary Care Provider [phone] Reason for Visit * Auth/Cert Specialty Diagnoses / Procedures Referred By Sonal dawson Referred To Contact Diagnoses Abdominal pannus Ventral hernia without obstruction or gangrene E65 - abdominal pannus K43.90 - Ventral hernia Proposed admit date of 05/17/2016 Panel 1 w/ Dr. Membreno for cpt code 94196 Panel 2 w/ Dr. Butcher for cpt code 35937 Procedures PRO EXCISE EXCESS SKIN TISSUE, ABDOMEN PRO REPAIR INCISIONAL HERNIA, REDUCIBLE PRO MUSCLE-SKIN FLAP, TRUNK ABDOMINOPLASTY Referral ID Status Reason Start Date Expiration Date Visits Re quested Visits Authorized [id number] 1 1 Encounter Details Date Type Department Care Team (Late st Contact Info) Description 05/17/2016 7:27 AM EDT Anesthesia [place] [address] Krunal Carter MD [facility] DR [place] [address] Leatha Trevino, CONTINUOUS TOWEL ROLLER [address] [facility] [address] [place] [address] Anesthesia Record Procedure Summary Procedure Name Responsible Anesthesiologist Anesthesia Start Time Anesthesia Stop Time PANNICULECTOMY (VU 17.11) (Abdomen) Krunal Carter MD 05/17/16 0727 [...] closed device; 19 yulia 05/17/16 1008 by Krsy Barrera RN Incision 02/08/14; 1030; abdo men; [...] 0723; metacarpal vein right (top of hand); [id number]-[id number] catheter system; 20 gauge; Campos Blair RN; [...] Carter MD - 05/17/2016 11:05 AM EDT [facility] Department of Anesthesiology Post-procedure Note Patient: Eugene Rueda Procedure Summary Date Anesthesia Start Anesthesia Stop Room / Location 05/17/16 0727 1040 [facility] MA[facility] OR Procedure Diagnosis Surgeon Responsible Provider ABDOMINOPLASTY (N/A Abdomen); MODIFIER PANNICULECTOMY (N/A Abdomen); REPAIR INITIAL INCISIONAL OR VENTRAL HERNIA REDUCIBLE (N/A Abdomen); MODIFIER MESH,BARD VENTRIO (abdominal pannus) Adis Membreno MD; TrusStephanie MD Pouliot, Ryan C, MD All Anesthesia Providers: Anesthesiologist: Krunal Carter MD SWITCHMAN: Polo Fraga CRNA Last (1hr) Vitals: BP 135/84 (05/17/16 1048) Temp 36.4 ??C (97.5 ??F) (05/17/16 1034) Pulse 109 (05/17/16 1048) Resp 14 (05/17/16 1048) SpO2 96 % (05/17/16 1048) Patient Location: PACU/[facility] Level of Consciousness: Awake and Alert Pain [...] OR MULTIPLE performed by Wally Pfeiffer MDat [facility] ENDOSCOPY ??? Pro upper gi endoscopy, diagnostic 12/25/2013 EGD, UPPER GI ENDOSCOPY performed by Wally Pfeiffer MD at [facility] ENDOSCOPY ??? Pro lap, esophagus, other proc 02/08/2014 LAPAROSCOPIC REVISION OF DELROY FUNDOPLASTY performed by Wally Pfeiffer MD at [facility] MAIN OR ??? Pro lap gastric bypass/monica-en-y 02/08/2014 @LAPAROSCOPIC GASTROPLASTY, performed by Wally Pfeiffer MD at [facility] MAIN OR ??? Pro upper gi endoscopy, diagnostic 02/08/2014 ENDOSCOPY, UPPER GI, DIAGNOSTIC, WITH OR WITHOUT SPECIMENS performed by Wally Pfeiffer MD at [facility] MAIN OR ??? Pro lap, diagnostic abdomen 02/10/2014 LAPAROSCOPY, DIAGNOSTIC, ABDOMEN performed by Wally Pfeiffer MD at [facility] MAIN OR Social History Substance Use Topics [...] risks discussed with patient. Plan discussed with SWITCHMAN. PAT Staff Note documented in this encounter [...] at 100 mL/hr, Intravenous, CONTINUOUS, Starting on Diamond 05/17/16 at 0645, Until Diamond 05/17/16 at [...] (PROSTIGMINE) multi-dose injection PRN, Starting on Diamond 8/11/16 at 1018, Until Diamond 05/17/16 at 1058, Anesthesia Intra-op, Routine Given 05/17/2016 10:18 AM EDT 5 mg ondansetron (ZOFRAN) injection PRN, Starting on Diamond 05/17/16 at 1012, Until Diaomnd 05/17/16 at 1058, Nausea, Anesthesia Intra-op, Routine [...] mg documented in this encounter Care Teams Commodity Merchant Relationship Specialty Start Date End Date Manolo Castro MD [address] [place] [address] PCP - General 05/14/12 04/21/17 documented as of this encounter
--- OUTSIDE RECORDS SUMMARY | 2024-06-09 09:19 | XMS_ITS | Encounter Summary ---
Author Organization [facility] Address [facility] [place] [address] Care Team Providers Care Chemical Manager Name Role Phone Manolo Castro MD Primary Care Provider [phone] Reason for Visit * Reason Comments Establish Care * Consultation (Routine) - Closed Specialty Diagnoses / Procedures Referred By Sonal dawson Referred To Contact General Surgery Diagnoses Abdominal panmonicaus Adis Membreno MD [facility] [place] [address] Stephanie Butcher MD [facility] [place] [address] Referral ID Status Reason Start Date Expiration Date V isits Requested Visits Authorized [id number] Closed Consult, Test & Treat 02/07/2016 02/06/2017 1 1 Encounter Details Date Type Department Care Team (Late st Contact Info) Description 03/22/2016 8:00 AM EDT Office [place] [address] Stephanie Butcher MD [facility] [place] [address] Ventral hernia without obstruction or gangrene Social [...] visit was 20 minutes, all spent in [id number] discussion with the patient. documented in this encounter Plan of Treatment Scheduled Referrals Name Type Priority Associated Diagnoses Orde r Schedule Referral to General Surgery Outpatient Referral Routine Abdominal pannus Ordered: 02/07/2016 documented as of this encounter Visit Diagnoses Diagnosis Ventral hernia without obstruction or gangrene Ventral hernia, unspecified, without mention of obstruction or gangrene documented in this encounter Care Teams Chemical Manager Relationship Specialty Start Date End Date Manolo Castro MD [address] [place] [address] PCP - General 05/14/12 04/21/17 documented as of this encounter
--- OUTSIDE RECORDS SUMMARY | 2024-06-09 09:19 | XMS_ITS | Encounter Summary ---
Author Organization [facility] [place] [address] Care Team Providers Care Line Servicer Name Role Phone Manolo Castro MD Primary Care Provider [phone] Reason for Visit * Reason Onset Date Comments No Show 08/05/2014 Encounter Details Date Type Department Care Team ([facility] Contact Info) Description 08/05/2014 Telephone [place] [address] Narda Allen, STEAM PRESS OPERATOR [facility] [place] [address] No Show Social History Tobacco Use Types [...] on filedocumented in this encounter Care Teams Line Servicer Relationship Specialty Start Date End Date Manolo Castro MD [address] [place] [address] PCP - General 05/14/12 04/21/17 documented as of this encounter
--- OUTSIDE RECORDS SUMMARY | 2024-06-09 09:19 | XMS_ITS | Encounter Summary ---
Author Organization [facility] [place] [address] Care Team Providers Care Cartography Professor Name Role Phone Manolo Castro MD Primary Care Provider [phone] Reason for Visit * Reason Comments Follow Up Surgery s/p panni 05/17/2016 Encounter Details Date Type Department Care Team (Late st Contact Info) Description 06/27/2016 9:00 AM EDT Office [place] [address] Karlene Valencia MD [facility] [place] [address] Abdominal pannus Social History Tobacco Use Types [...] dehiscence Umbilical remnant is viable Impression: Eugene Rueda is a 65 y.o. [...] adiposity documented in this encounter Care Teams Cartography Professor Relationship Specialty Start Date End Date Manolo Castro MD [address] [place] [address] PCP - General 05/14/12 04/21/17 documented as of this encounter
--- OUTSIDE RECORDS SUMMARY | 2024-06-09 09:19 | XMS_ITS | Encounter Summary ---
[facility] [place] [address] Care Team Providers Care Spud Grader Name Role Phone Manolo Castro MD Primary Care Provider Reason for Visit * Reason Comments Follow Up Surgery panni and hernia rep air 05/17 Encounter Details Date Type Department Care Team (Late st Contact Info) Description 05/29/2016 11:20 AM EDT Office [place] [address] Terri Barriga APRN [facility] [place] [address] Surgery follow-up Social History Tobacco Use Types [...] encounter Patient Instructions * Patient Instructions* Terri Barriga APRN - 05/29/2016 11:20 AM EDT 1. [...] in this encounter Progress Notes * Terri Barriga APRN - 05/29/2016 11:20 AM EDT Plastic [...] hours for two days in a row. [employer], am acting as scribe for Terri Barriga APRN. All work documented was performed by Terri Barriga APRN. ???I performed the above scribed service and agree with the accuracy of the note?? TERRI BARRIGA APRN documented in this encounter Plan of Treatment Not on file documented as of this encounter Visit Diagnoses Diagnosis Surgery follow-up Follow-up examination, following unspecified surgery documented in this encounter Care Teams Spud Grader Relationship Specialty Start Date End Date Manolo Castro MD [address] [place] [address] PCP - General 05/14/12 04/21/17 documented as of this encounter
--- OUTSIDE RECORDS SUMMARY | 2024-06-09 09:20 | XMS_ITS | Encounter Summary ---
Author Organization [facility] [address] Care Team Providers Care Heel Former Name Role Phone Manolo Castro MD Primary Care Provider [phone] Encounter Details Date Type Department Care Team (Late st Contact Info) Description 02/10/2014 9:24 AM EDT - 02/10/2014 11:34 AM EDT [place] [address] Misty De Guzman MD [facility] [place] [address] LAPAROSCOPY, DIAGNOSTIC, ABDOMEN (WRVU 5.14) Social History [...] EDT BARIATRIC SURGERY DISCHARGE INFORMATION CONTACT INFORMATION: [phone] Surgeons: Dr. Martinez, Cyndi, Margarette and Hadley [phone] Cane Piler: [phone] (Saturday through Saturday, 8:00 AM -5:00 PM) Dietitian: [phone] Non-business hours: [phone], ask for general surgeon inclusion teacher FOR EMERGENCIES: CALL 911 (trouble breathing, chest [...] had open gastric bypass and have kellie: Mumford should be removed 10 - 12 days after surgery. This can be done at [facility] or via Primary Care Provider [...] Follow up with primary care doctor or lean six sigma senior specialist in 1-2 weeks. Bring meter to [...] Provider Department Center 03/02/2014 3:00 PM Bariatric, Federal Aid Coordinator [facility] S[facility] 03/02/2014 3:40 PM [...] 10:09 AM EDT Care Management/ CRC Pager# [phone]/ Assessment and Initial discharge planning S: I am feeling pretty good today. I had some jello and some apple juice. That is a good thing! My son Momo will be helping me when I am able to go home. O: Met with patient this morning. Notes reviewed. Patient lives in [facility]. Patient has Cigna, National OOS Blue PPO, and Medicare (part A only) insurance. [facility] Patient is POD# 3 laparoscopic [...] q4hr prn. 99% on 2liters oxygen via ham facer this morning. A: Patient progressing post-op. Patient [...] is stable and Pain well controlled DC ENROLLMENT PROCESSOR and start Oxycodone liquid for pain controll [...] Office of Care Management (OCM) / Clinical Performance Architect (CRC)/ Initial Assessment Discussed patient with Provider Team and in multidisciplinary discharge-planning rounds. Reviewed record; patient off unit for procedure. Introduced/reviewed CRC role and services accepted. REASON for HOSPITALIZATION:s/p monica-en-y gastric bypass NPO; ENROLLMENT PROCESSOR; IVF's;UGI/SBF pending;Lovenox (on Coumadin for AF) PMH Past Medical History Diagnosis Date ??? Blood disorder ??? Circulatory disease ??? 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 PRIMARY CARE PHYSICIAN: MANOLO CASTRO MD [place] [id number] / [facility] [id number] POTENTIAL DISCHARGE NEEDS: none anticipated PATIENT/FAMILY EDUCATION NEEDS:per discharge summary ANTICIPATED BARRIERS TO DISCHARGE:none TRANSPORTATION @ D/C: PLAN: CRC will continue to monitor progress, follow for continuity of care and assist with discharge planning while hospitalized KENYATTA SANDS RN CRC for Melba Elmore RN CRC pager [phone] . * Ricky Trotter MD - 02/09/2014 8:26 AM EDT General Surgery Resident Inpatient Progress Note ID: Eugeen Rueda is a 63 y.o. male s/p [...] pain and nausea at this time. Using ENROLLMENT PROCESSOR appropriately, patient very drowsy but easily woken. Lap sites CDI. HR irreg. Will continue to monitor. * Radha Sanchez RN - 02/08/2014 4:49 PM EDT Report to Claire 4w. Pt sleepy, easily arousable. States he is comfortable. Gave medical bill processor with instruction. documented in this encounter H&P [...] has currently had full participation in the [facility] Bariatric Surgery Program and meets [...] majority of our 40 minutes today in [id number] conversation regarding various treatment options for obesity [...] 02/13/2014 12:56 PM EDTAssociated Order(s): SCAN DOC: MUSIC CATALOGUER documented in this encounter Miscellaneous Notes * [...] part of your care. Bariatric Surgery - [phone]: Follow-up with Dr. De Guzman PCP: MANOLO CASTRO MD, . Please follow-up with your PCP in 1-2 weeks or sooner as needed. Scheduled Appointments: The following appointments have been scheduled on your behalf: Future Appointments and Orders Future Appointments: Provider: Department: Dept Phone: Center: 03/02/2014 3:00 PM Federal Aid Coordinator Bariatric General Surgery [phone] [facility] 03/02/2014 3:40 PM Misty De Guzman MD General Surgery [phone] [facility] Outpatient Services/Studies: No discharge procedures on file. Instructions Given to Patient at Discharge: Provider Instructions BARIATRIC SURGERY DISCHARGE INFORMATION CONTACT INFORMATION: [phone] Surgeons: Cyndi Lujan Laycock and Trus [phone] Cane Piler: [phone] (Saturday through Saturday, 8:00 AM -5:00 PM) Dietitian: [phone] Non-business hours: [phone], ask for general surgeon inclusion teacher FOR EMERGENCIES: CALL 911 (trouble breathing, chest [...] after surgery. This can be done at [facility] or via Primary Care Provider [...] 200 on more than 3 rechecks, [facility] physician or diabetic specialist [...] Follow up with primary care doctor or lean six sigma senior specialist in 1-2 weeks. Bring meter to [...] Provider Department Center 03/02/2014 3:00 PM Bariatric, Federal Aid Coordinator Le[facility] 03/02/2014 3:40 PM Misty De Guzman MD [facility] General Instructions None Future Appointments and Orders Future Appointments: Provider: Department: Dept Phone: Center: 03/02/2014 3:00 PM Federal Aid Coordinator Bariatric General Surgery [phone] [facility] 03/02/2014 3:40 PM Misty De Guzman MD General Surgery [phone] Call your doctor if: Please call [...] managed by the Bariatric Surgery Team at [facility]. If you have any questions or concerns, please feel free to contact us. Provider Contact Information: General Surgery Clinic: [facility] (after business hours): CC: MANOLO [...] flowsheet for pain assessment. Pt with Dilaudid ENROLLMENT PROCESSOR 0.3/15/5 pt understands use, not utilized overnight. [...] pain. Pt stating good relief with Dilaudid ENROLLMENT PROCESSOR. Pt reporting no nausea,SOB or chest pain. Assessment as documented. Will continue to monitor. * Op Note - Misty De Guzman MD - 02/10/2014 2:56 PM EDT [facility] Operative Note Patient Name: Eugene Rueda : [id number] MR#: [id number] Case Date: 02/10/2014 Surgeon: Surgeon(s) and Role: * Misty De Guzman MD - Primary * Ricky Trotter MD - Resident-Silver Miner * Homero Hernandez MD - [facility] Preoperative diagnosis: post-op bleeding s/p rnygb Postoperative [...] Operative Note Patient Name: Eugene Rueda : [id number] MR#: [id number] Case Date: 02/10/2014 Surgeon: Surgeon(s) and Role: * Misty De Guzman MD - Primary * Ricky Trotter MD - Resident-Silver Miner * Homero Hernandez MD - Resident-Silver Miner Preoperative diagnosis: post-op bleeding s/p rnygb Postoperative [...] Operative Note Patient Name: Eugene Rueda : [id number] MR#: [id number] Case Date: 02/10/2014 Surgeon: Surgeon(s) and Role: * Misty De Guzman MD - Primary * Ricky Trotter MD - Resident-Silver Miner * Homero Hernandez MD - Resident-Silver Miner Preoperative diagnosis: post-op bleeding s/p rnygb Postoperative diagnosis: post-op bleeding s/p rnygb Procedure(s): LAPAROSCOPY, DIAGNOSTIC, ABDOMEN Anesthesia: General Findings: dense clot under liver and diaphragm, no site of active bleeding Complications: none Fluids: 1300cc Estimated Blood Loss: 500cc Drains: 10 Andorran MONICA drain Disposition: awakened from anesthesia, extubated [...] Operative Note Patient Name: Eugene Rueda : [id number] MR#: [id number] Case Date: 02/08/2014 Surgeon: Surgeon(s) and Role: [...] Guzman MD - 02/08/2014 9:37 AM EDT [facility] Operative Note Patient Name: Eugene Rueda : [id number] MR#: [id number] Case Date: 02/08/2014 Surgeon: Surgeon(s) and Role: [...] engaged with the bariatric surgery program at [facility]. He has multiple weight-related comorbidities, he meets NIH criteria for weight loss surgery, and he has had full participation in the [facility] bariatric surgery program. Following review [...] posteriorly and encircle the esophagus with a Brent drain. This was held in place using [...] all other items from the esophagus. The Toronto 60 blue load was angled horizontally at [...] and the small-bowel serosa, and using an [place] 60 with a white load the jejunum [...] fashioned using a single firing of the [place] 60 with a white load. That enterotomy [...] limb, and a partial firing of the Toronto 60 blue load at 30 mm was formed for the gastrojejunostomy. A 30-Andorran bougie was then passed by Anesthesia down [...] Procedure Name Priority Date/Time Associated Diagnosis Comments MUSIC CATALOGUER SCAN 02/13/2014 12:56 PM EDT POCT GLUCOSE Routine 02/12/2014 12:09 PM EDT POCT GLUCOSE Routine 02/12/2014 7:04 AM EDT DIFFERENTIAL, AUTOMATED Routine 02/12/2014 5:32 AM EDT CBC (WITH DIFF) Routine 02/12/2014 5:32 AM EDT BASIC METABOLIC PANEL Routine 02/12/2014 5:32 AM EDT POCT GLUCOSE [...] 02/11/2014 4:46 AM EDT BASIC METABOLIC PANEL STAT 02/11/2014 4:46 AM EDT POCT GLUCOSE [...] 02/10/2014 2:40 AM EDT BASIC METABOLIC PANEL Routine 02/10/2014 2:40 AM EDT POCT GLUCOSE [...] 02/09/2014 5:05 PM EDT BASIC METABOLIC PANEL STAT 02/09/2014 5:05 PM EDT POCT GLUCOSE [...] in this encounter Results * SCAN DOC: MUSIC CATALOGUER (02/13/2014 12:56 PM EDT) Anatomical Region Laterality Modality Other Narrative 02/13/2014 1:14 PM EDT Procedure Note Provider, Scanning - 02/13/2014 12:56 PM EDT Scanning Provider MEDIA MGR SCAN EXT O RDR/RSLT * POCT Glucose (02/12/2014 12:09 PM EDT) [facility] Glucose, POC 145 60 - 199 mg/dL [facility] Comment: Supplemental ranges: <110 mg/dL before meals <200 mg/dL all other times of the day Blood specimen (specimen) 02/12/2014 12:09 PM EDT 02/12/2014 12:09 PM EDT Misty De Guzman MD POINT OF CARE TEST ORDERABLES DERICK KRAFTIUM * POCT Glucose (02/12/2014 7:04 AM EDT) Glucose, POC 134 60 - 199 mg/dL CERNER MILLENNIUM Comment: Supplemental ranges: <110 mg/dL before meals <200 mg/dL all other times of the day Blood specimen (specimen) 02/12/2014 7:04 AM EDT 02/12/2014 7:04 AM EDT Misty De Guzman MD POINT OF CARE TEST ORDERABLES Performing Organization Address City/[facility]/ZIP Co de Phone Number DERICK MURPHYENNIUM * (ABNORMAL) Differential, Automated (02/12/2014 5:32 AM EDT) Neutrophil % 70.2 34.0 - 71.0 % CERNER MILLENNIUM Neutrophil Absolute 5.11 1.50 - 6.30 x10(3)/mc L CERNER MILLENNIUM Lymph % 11.5(L) 19.0 - 53.0 % CERNER MILLENNIUM Lymphocytes Abs 0.8(L) 1.0 - 3.6 x10(3)/mc L CERNER MILLENNIUM Monocyte % 11.2 4.0 - 13.0 % CERNER MILLENNIUM Monocyte Abs 0.8 0.2 - 1.0 x10(3)/mc L CERNER MILLENNIUM Eos % 6.7 0.0 - 7.0 % CERNER MILLENNIUM Eosinophils Abs 0.5 0.0 - 0.5 x10(3)/mc L CERNER MILLENNIUM Basophil % 0.3 0.0 - 2.0 % CERNER MILLENNIUM Baso Absolute 0.0 0.0 - 0.2 x10(3)/mc L CERNER MILLENNIUM Immature Gran % 0.10 0.00 - 0.66 % CERNER MILLENNIUM Comment: Immature granulocytes(IG's)percentage and absolute count will include metamyelocytes, myelocytes, and promyelocytes. Blood smears from CBCs yielding IG's will be scanned manually for concordance. If this scan disagrees with the automated IG or if promyelocytes are noted, a manual differential will be performed. Immature Gran Absolute 0.01 0.00 - 0.05 x10(3)/mc L CERNER MILLENNIUM Blood specimen (specimen) 02/12/2014 5:32 AM EDT 02/12/2014 5:58 AM EDT Misty De Guzman MD HEMATOLOGY ORDERABL ES [facility] * (ABNORMAL) Basic Metabolic Panel (non-fasting) (02/12/2014 5:32 AM EDT) Glucose 131 60 - 199 mg/dL CERNER MILLENNIUM Comment:Diabetes: >=200 mg/d L plus symptoms Blood Urea Nitrogen 16 10 - 20 mg/dL CERNER MILLENNIUM Creatinine 0.67(L) 0.80 - 1.50 mg/dL CERNER MILLENNIUM Comment: Please note that the pediatric reference intervals supplied above were not validated at [facility]. Results from pediatric patients should [...] 103 98 - 107 mmol/L CERNER MILLENNIUM Carbon Dioxide 26 22 - 31 mmol/L CERNER MILLENNIUM Anion Gap 11 5 - 15 mmol/L CERNER MILLENNIUM Calcium 8.2(L) 8.5 - 10.5 mg/dL CERNER MILLENNIUM Est Glomerular Filtration Rate >60 >=60 CERNER MILLENNIUM Comment: This estimated [...] Misty De Guzman MD CHEMISTRY ORDERABLE S CERNER MILLENNIUM * (ABNORMAL) CBC (with Diff) (02/12/2014 5:32 AM EDT) White Blood Cell 7.3 4.0 - 10.0 x10(3)/mc L CERNER MILLENNIUM Red Blood Cell 3.21(L) 4.63 - 6.08 x10(6)/mc L CERNER MILLENNIUM Hemoglobin 9.5(L) 13.7 - 17.5 gm/dL CERNER MILLENNIUM Hematocrit 29.3(L) 40.0 - 51.0 % CERNER MILLENNIUM Mean Cell Volume 91.3 79.0 - 92.0 fL CERNER MILLENNIUM Mean Cell Hemoglobin 29.6 25.6 - 32.2 pg CERNER MILLENNIUM Mean Cell Hemoglobin Concentration 32.4 32.0 - 36.5 gm/dL CERNER MILLENNIUM Platelet 200 145 - 370 x10(3)/mc L CERNER MILLENNIUM RDW Standard Deviation 47.9(H) 35.0 - 46.0 fL CERNER MILLENNIUM RDW coefficient of variation 14.3 10.9 - 14.4 % CERNER MILLENNIUM Mean Platelet Volume 9.3 9.0 - 12.0 fL CERNER MILLENNIUM Blood specimen (specimen) 02/12/2014 5:32 AM EDT 02/12/2014 5:58 AM EDT Narrative Resulting Agency Comment Spec In Lab Misty De Guzman MD HEMATOLOGY ORDERABL ES Performing Organization Address [facility]/ZIP Co de Phone Number [facility] * POCT Glucose (02/12/2014 3:50 AM EDT) Glucose, POC 123 60 - 199 mg/dL [facility] Comment: Supplemental ranges: <110 mg/dL before meals <200 mg/dL all other times of the day Blood specimen (specimen) 02/12/2014 3:50 AM EDT 02/12/2014 3:50 AM EDT Misty De Guzman MD POINT OF CARE TEST ORDERABLES Performing Organization Address [facility] de Phone Number [facility] * POCT Glucose (02/11/2014 11:26 PM EDT) Glucose, POC 178 60 - 199 mg/dL [facility] Comment: Supplemental ranges: <110 mg/dL before meals <200 mg/dL all other times of the day Blood specimen (specimen) 02/11/2014 11:26 PM EDT 02/11/2014 11:26 PM EDT Misty De Guzman MD POINT OF CARE TEST ORDERABLES Performing Organization Address [facility] Co de Phone Number [facility] * POCT Glucose (02/11/2014 7:20 PM EDT) Glucose, POC 140 60 - 199 mg/dL [facility] Comment: Supplemental ranges: <110 mg/dL before meals <200 mg/dL all other times of the day Blood specimen (specimen) 02/11/2014 7:20 PM EDT 02/11/2014 7:20 PM EDT Misty De Guzman MD POINT OF CARE TEST ORDERABLES Performing Organization Address [facility] Co de Phone Number [facility] * POCT Glucose (02/11/2014 4:15 PM EDT) Glucose, POC 149 60 - 199 mg/dL [facility] Comment: Supplemental ranges: <110 mg/dL before meals <200 mg/dL all other times of the day Blood specimen (specimen) 02/11/2014 4:15 PM EDT 02/11/2014 4:15 PM EDT Misty De Guzman MD POINT OF CARE TEST ORDERABLES Performing Organization Address [facility] de Phone Number [facility] * POCT Glucose (02/11/2014 11:45 AM EDT) Glucose, POC 157 60 - 199 mg/dL [facility] Comment: Supplemental ranges: <110 mg/dL before meals <200 mg/dL all other times of the day Blood specimen (specimen) 02/11/2014 11:45 AM EDT 02/11/2014 11:45 AM EDT Misty De Guzman MD POINT OF CARE TEST ORDERABLES Performing Organization Address [facility] Phone Number [facility] * POCT Glucose (02/11/2014 6:56 AM EDT) Glucose, POC 158 60 - 199 mg/dL [facility] Comment: Supplemental ranges: <110 mg/dL before meals <200 mg/dL all other times of the day Blood specimen (specimen) 02/11/2014 6:56 AM EDT 02/11/2014 6:56 AM EDT Misty De Guzman MD POINT OF CARE TEST ORDERABLES Performing Organization Address [facility] de Phone Number [facility] * (ABNORMAL) Differential, Automated (02/11/2014 4:46 AM EDT) Neutrophil % 80.0(H) 34.0 - 71.0 % [facility] Neutrophil Absolute 8.15(H) 1.50 - 6.30 x10(3)/mc L [facility] Lymph % 7.6(L) 19.0 - 53.0 % CERNER MILLENNIUM Lymphocytes Abs 0.8(L) 1.0 - 3.6 x10(3)/mc L CERNER MILLENNIUM Monocyte % 9.5 4.0 - 13.0 % CERNER MILLENNIUM Monocyte Abs 1.0 0.2 - 1.0 x10(3)/mc L CERNER MILLENNIUM Eos % 2.6 0.0 - 7.0 % CERNER MILLENNIUM Eosinophils Abs 0.3 0.0 - 0.5 x10(3)/mc L CERNER MILLENNIUM Basophil % 0.2 0.0 - 2.0 % CERNER MILLENNIUM Baso Absolute 0.0 0.0 - 0.2 x10(3)/mc L CERNER MILLENNIUM Immature Gran % 0.10 0.00 - 0.66 % CERNER MILLENNIUM Comment: Immature granulocytes(IG's)percentage and absolute count will include metamyelocytes, myelocytes, and promyelocytes. Blood smears from CBCs yielding IG's will be scanned manually for concordance. If this scan disagrees with the automated IG or if promyelocytes are noted, a manual differential will be performed. Immature Gran Absolute 0.01 0.00 - 0.05 x10(3)/mc L CERNER MILLENNIUM Blood specimen (specimen) 02/11/2014 4:46 AM EDT 02/11/2014 5:12 AM EDT Misty De Guzman MD HEMATOLOGY ORDERABL ES CERWALDO KRAFTIUM * (ABNORMAL) CBC (with Diff) (02/11/2014 4:46 AM EDT) White Blood Cell 10.2(H) 4.0 - 10.0 x10(3)/mc L CERNER MILLENNIUM Red Blood Cell 3.19(L) 4.63 - 6.08 x10(6)/mc L CERNER MILLENNIUM Hemoglobin 9.8(L) 13.7 - 17.5 gm/dL CERNER MILLENNIUM Hematocrit 29.3(L) 40.0 - 51.0 % CERNER MILLENNIUM Mean Cell Volume 91.8 79.0 - 92.0 fL CERNER MILLENNIUM Mean Cell Hemoglobin 30.7 25.6 - 32.2 pg CERNER MILLENNIUM Mean Cell Hemoglobin Concentration 33.4 32.0 - 36.5 gm/dL CERNER MILLENNIUM Platelet 180 145 - 370 x10(3)/mc L CERNER MILLENNIUM RDW Standard Deviation 49.1(H) 35.0 - 46.0 fL CERNER MILLENNIUM RDW coefficient of variation 14.6(H) 10.9 - 14.4 % CERNER MILLENNIUM Mean Platelet Volume 9.4 9.0 - 12.0 fL CERNER MILLENNIUM Blood specimen (specimen) 02/11/2014 4:46 AM EDT 02/11/2014 5:12 AM EDT Narrative Resulting Agency Comment Spec In Lab Misty De Guzman MD HEMATOLOGY ORDERABL ES CERNER MILLENNIUM * (ABNORMAL) Basic Metabolic Panel (non-fasting) (02/11/2014 4:46 AM EDT) [facility] Glucose 152 60 - 199 mg/dL CERNER MILLENNIUM Comment:Diabetes: >=200 mg/d L plus symptoms Blood Urea Nitrogen 17 10 - 20 mg/dL CERNER MILLENNIUM Creatinine 0.90 0.80 - 1.50 mg/dL CERNER MILLENNIUM Comment: Please note that the pediatric reference intervals supplied above were not validated at [facility]. Results from pediatric patients should [...] 104 98 - 107 mmol/L CERNER MILLENNIUM Carbon Dioxide 25 22 - 31 mmol/L CERNER MILLENNIUM Anion Gap 11 5 - 15 mmol/L CERNER MILLENNIUM Calcium 8.0(L) 8.5 - 10.5 mg/dL CERNER MILLENNIUM Est Glomerular Filtration Rate >60 >=60 [facility] Comment: This estimated GFR (eGFR) value was [...] MD CHEMISTRY ORDERABLE S Performing Organization Address [facility] de Phone Number [facility] * POCT Glucose (02/11/2014 4:35 AM EDT) Glucose, POC 151 60 - 199 mg/dL [facility] Comment: Supplemental ranges: <110 mg/dL before meals <200 mg/dL all other times of the day Blood specimen (specimen) 02/11/2014 4:35 AM EDT 02/11/2014 4:35 AM EDT Misty De Guzman MD POINT OF CARE TEST ORDERABLES Performing Organization Address [facility] de Phone Number [facility] * POCT Glucose (02/10/2014 11:29 PM EDT) Glucose, POC 146 60 - 199 mg/dL [facility] Comment: Supplemental ranges: <110 mg/dL before meals <200 mg/dL all other times of the day Blood specimen (specimen) 02/10/2014 11:29 PM EDT 02/10/2014 11:29 PM EDT Misty De Guzman MD POINT OF CARE TEST ORDERABLES Performing Organization Address [facility]/ZIP Co de Phone Number DERICK MURPHY * POCT Glucose (02/10/2014 7:58 PM EDT) Glucose, POC 112 60 - 199 mg/dL [facility] Comment: Supplemental ranges: <110 mg/dL before meals <200 mg/dL all other times of the day Blood specimen (specimen) 02/10/2014 7:58 PM EDT 02/10/2014 7:58 PM EDT Misty De Guzman MD POINT OF CARE TEST ORDERABLES Performing Organization Address [facility] de Phone Number DERICK MURPHY * POCT Glucose (02/10/2014 4:06 PM EDT) Glucose, POC 141 60 - 199 mg/dL [facility] Comment: Supplemental ranges: <110 mg/dL before meals <200 mg/dL all other times of the day Blood specimen (specimen) 02/10/2014 4:06 PM EDT 02/10/2014 4:06 PM EDT Misty De Guzman MD POINT OF CARE TEST ORDERABLES Performing Organization Address [facility] de Phone Number DERICK MURPHY * (ABNORMAL) Differential, Automated (02/10/2014 3:50 PM EDT) Neutrophil % 82.5(H) 34.0 - 71.0 % [facility] Neutrophil Absolute 9.11(H) 1.50 - 6.30 x10(3)/mc L CERNER MILLENNIUM Lymph % 8.9(L) 19.0 - 53.0 % CERNER MILLENNIUM Lymphocytes Abs 1.0 1.0 - 3.6 x10(3)/mc L CERNER MILLENNIUM Monocyte % 7.5 4.0 - 13.0 % CERNER MILLENNIUM Monocyte Abs 0.8 0.2 - 1.0 x10(3)/mc L CERNER MILLENNIUM Eos % 0.7 0.0 - 7.0 % CERNER MILLENNIUM Eosinophils Abs 0.1 0.0 - 0.5 x10(3)/mc L CERNER MILLENNIUM Basophil % 0.1 0.0 - 2.0 % CERNER MILLENNIUM Baso Absolute 0.0 0.0 - 0.2 x10(3)/mc L CERNER MILLENNIUM Immature Gran % 0.30 0.00 - 0.66 % CERNER MILLENNIUM Comment: Immature granulocytes(IG's)percentage and absolute count will include metamyelocytes, myelocytes, and promyelocytes. Blood smears from CBCs yielding IG's will be scanned manually for concordance. If this scan disagrees with the automated IG or if promyelocytes are noted, a manual differential will be performed. Immature Gran Absolute 0.03 0.00 - 0.05 x10(3)/mc L CERNER MILLENNIUM Blood specimen (specimen) 02/10/2014 3:50 PM EDT 02/10/2014 3:56 PM EDT Misty De Guzman MD HEMATOLOGY ORDERABL ES CERNER MILLENNIUM * (ABNORMAL) CBC (with Diff) (02/10/2014 3:50 PM EDT) White Blood Cell 11.0(H) 4.0 - 10.0 x10(3)/mc L CERNER MILLENNIUM Red Blood Cell 3.36(L) 4.63 - 6.08 x10(6)/mc L CERNER MILLENNIUM Hemoglobin 10.0(L) 13.7 - 17.5 gm/dL CERNER MILLENNIUM Hematocrit 30.8(L) 40.0 - 51.0 % CERNER MILLENNIUM Mean Cell Volume 91.7 79.0 - 92.0 fL CERNER MILLENNIUM Mean Cell Hemoglobin 29.8 25.6 - 32.2 pg CERNER MILLENNIUM Mean Cell Hemoglobin Concentration 32.5 32.0 - 36.5 gm/dL CERNER MILLENNIUM Platelet 185 145 - 370 x10(3)/mc L CERNER MILLENNIUM RDW Standard Deviation 49.1(H) 35.0 - 46.0 fL CERNER MILLENNIUM RDW coefficient of variation 14.7(H) 10.9 - 14.4 % CERNER MILLENNIUM Mean Platelet Volume 9.5 9.0 - 12.0 fL [facility] MILLENNIUM Blood specimen (specimen) 02/10/2014 3:50 PM EDT 02/10/2014 3:56 PM EDT Narrative Resulting Agency Comment Spec In Lab Misty De Guzman MD HEMATOLOGY ORDERABL ES Performing Organization Address [facility] Co de Phone Number [facility]FFRE[facility]ON[facility]ENTER[facility] * POCT Glucose (02/10/2014 12:34 PM EDT) Glucose, POC 160 60 - 199 mg/dL [facility] Comment: Supplemental ranges: <110 mg/dL before meals <200 mg/dL all other times of the day Blood specimen (specimen) 02/10/2014 12:34 PM EDT 02/10/2014 12:34 PM EDT Misty De Guzman MD POINT OF CARE TEST ORDERABLES Performing Organization Address [facility] Phone Number [facility]REYHON[facility]ENTERI[facility] * (ABNORMAL) Prothrombin Time (02/10/2014 7:33 AM EDT) Prothrombin Time 17.0(H) 12.0 - 15.0 sec [facility] JEFFREYENNIUM Comment: [facility] Transfusion Committee Guidelines: INR less than 2.0, PTT less than OR equal to 43.5 seconds, or Fibrinogen greater than or equal to 100 mg/dl indicate adequate procoagulant activity for hemostasis in patients without underlying bleeding disorders. International Normalization Ratio 1.3(H) 0.9 - 1.1 [facility] MILLENNIUM Blood specimen (specimen) 02/10/2014 7:33 AM EDT 02/10/2014 7:39 AM EDT Narrative Resulting Agency Comment Spec In Lab Misty De Guzman MD HEMATOLOGY ORDERABL ES Performing Organization Address [facility] de Phone Number DERICK KRAFTIUM * Magnesium (02/10/2014 7:33 AM EDT) Magnesium 0.79 0.69 - 1.07 mmol/L CERNER MILLENNIUM Blood specimen (specimen) 02/10/2014 7:33 AM EDT 02/10/2014 7:39 AM EDT Narrative Resulting Agency Comment Spec In Lab Misty De Guzman MD CHEMISTRY ORDERABLE S Performing Organization Address [facility] Co de Phone Number CERNER MILLENNIUM * (ABNORMAL) Hemogram (02/10/2014 7:33 AM EDT) White Blood Cell 10.9(H) 4.0 - 10.0 x10(3)/mc L CERNER MILLENNIUM Red Blood Cell 3.08(L) 4.63 - 6.08 x10(6)/mc L CERNER MILLENNIUM Hemoglobin 9.2(L) 13.7 - 17.5 gm/dL CERNER MILLENNIUM Hematocrit 28.0(L) 40.0 - 51.0 % CERNER MILLENNIUM Mean Cell Volume 90.9 79.0 - 92.0 fL CERNER MILLENNIUM Mean Cell Hemoglobin 29.9 25.6 - 32.2 pg CERNER MILLENNIUM Mean Cell Hemoglobin Concentration 32.9 32.0 - 36.5 gm/dL CERNER MILLENNIUM Platelet 166 145 - 370 x10(3)/mc L CERNER MILLENNIUM RDW Standard Deviation 47.6(H) 35.0 - 46.0 fL CERNER MILLENNIUM RDW coefficient of variation 14.5(H) 10.9 - 14.4 % CERNER MILLENNIUM Mean Platelet Volume 9.1 9.0 - 12.0 fL CERNER MILLENNIUM Blood specimen (specimen) 02/10/2014 7:33 AM EDT 02/10/2014 7:39 AM EDT Narrative Resulting Agency Comment Spec In Lab Misty De Guzman MD HEMATOLOGY ORDERABL ES Performing Organization Address [facility]/ZIP Co de Phone Number CERWALDO MILLENNIUM * POCT Glucose (02/10/2014 7:25 AM EDT) Glucose, POC 131 60 - 199 mg/dL CERNER MILLENNIUM Comment: Supplemental ranges: <110 mg/dL before meals <200 mg/dL all other times of the day Blood specimen (specimen) 02/10/2014 7:25 AM EDT 02/10/2014 7:25 AM EDT Misty De Guzman MD POINT OF CARE TEST ORDERABLES DERICK KRAFTIUM * POCT Glucose (02/10/2014 4:11 AM EDT) Glucose, POC 144 60 - 199 mg/dL CERNER MILLENNIUM Comment: Supplemental ranges: <110 mg/dL before meals <200 mg/dL all other times of the day Blood specimen (specimen) 02/10/2014 4:11 AM EDT 02/10/2014 4:11 AM EDT Misty De Guzman MD POINT OF CARE TEST ORDERABLES Performing Organization Address [facility] de Phone Number CERWALDO MURPHYENNIUM * (ABNORMAL) Differential, Automated (02/10/2014 2:40 AM EDT) Neutrophil % 76.9(H) 34.0 - 71.0 % CERNER MILLENNIUM Neutrophil Absolute 8.07(H) 1.50 - 6.30 x10(3)/mc L CERNER MILLENNIUM Lymph % 9.2(L) 19.0 - 53.0 % CERNER MILLENNIUM Lymphocytes Abs 1.0 1.0 - 3.6 x10(3)/mc L CERNER MILLENNIUM Monocyte % 12.2 4.0 - 13.0 % CERNER MILLENNIUM Monocyte Abs 1.3(H) 0.2 - 1.0 x10(3)/mc L CERNER MILLENNIUM Eos % 1.3 0.0 - 7.0 % CERNER MILLENNIUM Eosinophils Abs 0.1 0.0 - 0.5 x10(3)/mc L CERNER MILLENNIUM Basophil % 0.2 0.0 - 2.0 % CERNER MILLENNIUM Baso Absolute 0.0 0.0 - 0.2 x10(3)/mc L CERNER MILLENNIUM Immature Gran % 0.20 0.00 - 0.66 % [facility] NuvilexENNIUM Comment: Immature granulocytes(IG's)percentage and absolute count will include metamyelocytes, myelocytes, and promyelocytes. Blood smears from CBCs yielding IG's will be scanned manually for concordance. If this scan disagrees with the automated IG or if promyelocytes are noted, a manual differential will be performed. Immature Gran Absolute 0.02 0.00 - 0.05 x10(3)/mc L [facility]xHON[facility]HE[facility] S[facility]ENTERIUM Blood specimen (specimen) 02/10/2014 2:40 AM EDT 02/10/2014 2:55 AM EDT Misty De Guzman MD HEMATOLOGY ORDERABL ES Performing Organization Address [facility] de Phone Number [facility] ManagementATRIUM HE[facility] * (ABNORMAL) Prothrombin Time (02/10/2014 2:40 AM EDT) Prothrombin Time 16.4(H) 12.0 - 15.0 sec [facility]xHON[facility]HE[facility]ENTERIUM Comment: [facility] Transfusion Committee Guidelines: INR less than 2.0, PTT less than OR equal to 43.5 seconds, or Fibrinogen greater than or equal to 100 mg/dl indicate adequate procoagulant activity for hemostasis in patients without underlying bleeding disorders. International Normalization Ratio 1.3(H) 0.9 - 1.1 [facility]ilexHONORHEALTH SON[facility] CENTERIUM Blood specimen (specimen) 02/10/2014 2:40 AM EDT 02/10/2014 2:54 AM EDT Narrative Resulting Agency Comment Spec In Lab Misty De Guzman MD HEMATOLOGY ORDERABL ES Performing Organization Address [facility] Co de Phone Number DERICK MURPHY * APTT (02/10/2014 2:40 AM EDT) Partial Thromboplastin Time 33 25 - 35 sec [facility]ok[facility] Health ManagementIUM Comment: Recommended therapeutic PTT range for full dose unfractionated heparin is 80-114 seconds. Blood specimen (specimen) 02/10/2014 2:40 AM EDT 02/10/2014 2:54 AM EDT Narrative Resulting Agency Comment Spec In Lab Misty De Guzman MD HEMATOLOGY ORDERABL ES Performing Organization Address [facility] Co de Phone Number CERNER MILLENNIUM * (ABNORMAL) CBC (with Diff) (02/10/2014 2:40 AM EDT) White Blood Cell 10.5(H) 4.0 - 10.0 x10(3)/mc L CERNER MILLENNIUM Red Blood Cell 3.44(L) 4.63 - 6.08 x10(6)/mc L CERNER MILLENNIUM Hemoglobin 10.1(L) 13.7 - 17.5 gm/dL CERNER MILLENNIUM Hematocrit 30.8(L) 40.0 - 51.0 % CERNER MILLENNIUM Mean Cell Volume 89.5 79.0 - 92.0 fL CERNER MILLENNIUM Mean Cell Hemoglobin 29.4 25.6 - 32.2 pg CERNER MILLENNIUM Mean Cell Hemoglobin Concentration 32.8 32.0 - 36.5 gm/dL CERNER MILLENNIUM Platelet 209 145 - 370 x10(3)/mc L CERNER MILLENNIUM RDW Standard Deviation 48.2(H) 35.0 - 46.0 fL CERNER MILLENNIUM RDW coefficient of variation 14.7(H) 10.9 - 14.4 % CERNER MILLENNIUM Mean Platelet Volume 9.4 9.0 - 12.0 fL CERNER MILLENNIUM Blood specimen (specimen) 02/10/2014 2:40 AM EDT 02/10/2014 2:55 AM EDT Narrative Resulting Agency Comment Spec In Lab Misty De Guzman MD HEMATOLOGY ORDERABL ES Performing Organization Address [facility]/ZIP Co de Phone Number CERNER MILLENNIUM * (ABNORMAL) Basic Metabolic Panel (non-fasting) (02/10/2014 2:40 AM EDT) Glucose 142 60 - 199 mg/dL CERNER MILLENNIUM Comment:Diabetes: >=200 mg/d L plus symptoms Blood Urea Nitrogen 26(H) 10 - 20 mg/dL CERNER MILLENNIUM Creatinine 1.57(H) 0.80 - 1.50 mg/dL CERNER MILLENNIUM Comment: result rechecked- llu Please note that the pediatric reference intervals supplied above were not validated at [facility]. Results from pediatric patients should [...] 103 98 - 107 mmol/L CERNER MILLENNIUM Carbon Dioxide 26 22 - 31 mmol/L CERNER MILLENNIUM Anion Gap 11 5 - 15 mmol/L CERNER MILLENNIUM Calcium 8.1(L) 8.5 - 10.5 mg/dL CERNER MILLENNIUM Est Glomerular Filtration Rate 45(L) >=60 CERNER MILLENNIUM Comment: This estimated [...] ORDERABLE S DERICK MURPHY * POCT Glucose (02/09/2014 11:39 PM EDT) Glucose, POC 153 60 - 199 mg/dL CERNER MILLENNIUM Comment: Supplemental ranges: <110 mg/dL before meals <200 mg/dL all other times of the day Blood specimen (specimen) 02/09/2014 11:39 PM EDT 02/09/2014 11:39 PM EDT Misty De Guzman MD POINT OF CARE TEST ORDERABLES Performing Organization Address [facility] de Phone Number DERICK MURPHY * EKG 12 Lead (02/09/2014 10:11 PM EDT) Ventricular rate 130 BPM MUSE SYSTEM Atrial Rate 86 BPM MUSE SYSTEM QRS Duration 76 ms MUSE SYSTEM Q-T Interval 332 ms MUSE SYSTEM QTC Calculated (Bezet) 488 ms MUSE SYSTEM Calculated R [place] 47 degrees MUSE SYSTEM Calculated T [place] 35 degrees MUSE SYSTEM INTERPRETATION Atrial fibrillation with rapid ventricular response Low voltage QRS Abnormal ECG When compared with ECG of 18-NOV-2013 13:19, No significant change was found Confirmed by MD Darío, Andrez ([id number]) on 02/10/2014 11:18:33 PM MUSE SYSTEM 02/09/2014 10:1 1 PM EDT 02/10/2014 11:18 PM EDT Misty De Guzman MD ECG ORDERABLES Performing Organization Address [facility] de Phone Number MUSE SYSTEM * POCT Glucose (02/09/2014 10:03 PM EDT) Glucose, POC 115 60 - 199 mg/dL [facility] Comment: Supplemental ranges: <110 mg/dL before meals <200 mg/dL all other times of the day Blood specimen (specimen) 02/09/2014 10:03 PM EDT 02/09/2014 10:03 PM EDT Misty De Guzman MD POINT OF CARE TEST ORDERABLES Performing Organization Address [facility] de Phone Number DERICK MURPHY * (ABNORMAL) Hemogram (02/09/2014 9:00 PM EDT) Pathologist [facility] White Blood Cell 12.3(H) 4.0 - 10.0 x10(3)/mc L [facility] Red Blood Cell 3.70(L) 4.63 - 6.08 x10(6)/mc L CERNER MILLENNIUM Hemoglobin 10.9(L) 13.7 - 17.5 gm/dL CERNER MILLENNIUM Hematocrit 33.2(L) 40.0 - 51.0 % CERNER MILLENNIUM Mean Cell Volume 89.7 79.0 - 92.0 fL CERNER MILLENNIUM Mean Cell Hemoglobin 29.5 25.6 - 32.2 pg CERNER MILLENNIUM Mean Cell Hemoglobin Concentration 32.8 32.0 - 36.5 gm/dL CERNER MILLENNIUM Platelet 204 145 - 370 x10(3)/mc L CERNER MILLENNIUM RDW Standard Deviation 48.0(H) 35.0 - 46.0 fL CERNER MILLENNIUM RDW coefficient of variation 14.7(H) 10.9 - 14.4 % CERNER MILLENNIUM Mean Platelet Volume 9.3 9.0 - 12.0 fL CERNER MILLENNIUM Blood specimen (specimen) 02/09/2014 9:00 PM EDT 02/09/2014 9:11 PM EDT Narrative Resulting Agency Comment Spec In Lab Misty De Guzman MD HEMATOLOGY ORDERABL ES CERNER MILLENNIUM * Creatinine, urine, random (02/09/2014 8:50 PM EDT) Creatinine, Urine 170 mg/dL CERNER MILLENNIUM Urine specimen (specimen) 02/09/2014 8:50 PM EDT 02/09/2014 9:50 PM EDT Narrative Resulting Agency Comment Spec In Lab Misty De Guzman MD URINE ORDERABLES CERNER MILLENNIUM * Electrolytes, urine, random (02/09/2014 8:50 PM EDT) Sodium, Urine 34 mmol/L CERNER MILLENNIUM Potassium, Urine 56 mmol/L CERNER MILLENNIUM Chloride, Urine 22 mmol/L CERNER MILLENNIUM Urine specimen (specimen) 02/09/2014 8:50 PM EDT 02/09/2014 9:50 PM EDT Narrative Resulting Agency Comment Spec In Lab Misty De Guzman MD URINE ORDERABLES DERICK KRAFTIUM * POCT Glucose (02/09/2014 7:21 PM EDT) Glucose, POC 116 60 - 199 mg/dL CERNER MILLENNIUM Comment: Supplemental ranges: <110 mg/dL before meals <200 mg/dL all other times of the day Blood specimen (specimen) 02/09/2014 7:21 PM EDT 02/09/2014 7:21 PM EDT Misty De Guzman MD POINT OF CARE TEST ORDERABLES Performing Organization Address [facility] Co de Phone Number DERICK KRAFTIUM * (ABNORMAL) Differential, Automated (02/09/2014 5:05 PM EDT) Neutrophil % 78.6(H) 34.0 - 71.0 % CERNER MILLENNIUM Neutrophil Absolute 11.29(H) 1.50 - 6.30 x10(3)/mc L CERNER MILLENNIUM Lymph % 8.2(L) 19.0 - 53.0 % CERNER MILLENNIUM Lymphocytes Abs 1.2 1.0 - 3.6 x10(3)/mc L CERNER MILLENNIUM Monocyte % 12.7 4.0 - 13.0 % CERNER MILLENNIUM Monocyte Abs 1.8(H) 0.2 - 1.0 x10(3)/mc L CERNER MILLENNIUM Eos % 0.1 0.0 - 7.0 % CERNER MILLENNIUM Eosinophils Abs 0.0 0.0 - 0.5 x10(3)/mc L CERNER MILLENNIUM Basophil % 0.1 0.0 - 2.0 % CERNER MILLENNIUM Baso Absolute 0.0 0.0 - 0.2 x10(3)/mc L CERNER MILLENNIUM Immature Gran % 0.30 0.00 - 0.66 % CERNER MILLENNIUM Comment: Immature granulocytes(IG's)percentage and absolute count will include metamyelocytes, myelocytes, and promyelocytes. Blood smears from CBCs yielding IG's will be scanned manually for concordance. If this scan disagrees with the automated IG or if promyelocytes are noted, a manual differential will be performed. Immature Gran Absolute 0.04 0.00 - 0.05 x10(3)/mc L [facility] Blood specimen (specimen) 02/09/2014 5:05 PM EDT 02/09/2014 5:14 PM EDT Misty De Guzman MD HEMATOLOGY ORDERABL ES Performing Organization Address [facility] Co de Phone Number [facility] * Antibody screen (02/09/2014 5:05 PM EDT) Pathologist [facility] Ab Screen Interp Negative [facility] Expires at [id number] on: [id number] [facility] Blood specimen (specimen) 02/09/2014 5:05 PM EDT 02/09/2014 5:14 PM EDT Narrative Resulting Agency Comment Spec In Lab Misty De Guzman MD BLOOD BANK LAB ORDRajeev GRECO Performing Organization Address [facility] de Phone Number [facility] * ABO/Rh Typing (02/09/2014 5:05 PM EDT) [facility] ABORH Type A Pos [facility] Blood specimen (specimen) 02/09/2014 5:05 PM EDT 02/09/2014 5:14 PM EDT Narrative Resulting Agency Comment Spec In Lab Misty De Guzman MD BLOOD BANK LAB ORDE ANGUS Performing Organization Address [facility] de Phone Number [facility] * (ABNORMAL) Basic Metabolic Panel (non-fasting) (02/09/2014 5:05 PM EDT) [facility] Glucose 144 60 - 199 mg/dL [facility] Comment:Diabetes: >=200 mg/d L plus symptoms Blood Urea Nitrogen 30(H) 10 - 20 mg/dL [facility] Comment:result rechecked- MT F Creatinine 2.96(H) 0.80 - 1.50 mg/dL CERNER MILLENNIUM Comment: result rechecked- MTF Please note that the pediatric reference intervals supplied above were not validated at [facility]. Results from pediatric patients should [...] 100 98 - 107 mmol/L CERNER MILLENNIUM Carbon Dioxide 26 22 - 31 mmol/L CERNER MILLENNIUM Anion Gap 13 5 - 15 mmol/L CERNER MILLENNIUM Calcium 8.7 8.5 - 10.5 mg/dL CERNER MILLENNIUM Est Glomerular Filtration Rate 22(L) >=60 CERNER MILLENNIUM Comment: This estimated [...] MURPHY * APTT (02/09/2014 5:05 PM EDT) [facility] Partial Thromboplastin Time 31 25 - 35 sec CERNER MILLENNIUM Comment: Recommended therapeutic PTT range for full dose unfractionated heparin is 80-114 seconds. Blood specimen (specimen) 02/09/2014 5:05 PM EDT 02/09/2014 5:14 PM EDT Narrative Resulting Agency Comment Spec In Lab Misty De Guzman MD HEMATOLOGY ORDERABL ES Performing Organization Address [facility] Co de Phone Number DERICK MURPHYENNIUM * (ABNORMAL) Prothrombin Time (02/09/2014 5:05 PM EDT) Prothrombin Time 16.3(H) 12.0 - 15.0 sec CERNER MILLENNIUM Comment: [facility] Transfusion Committee Guidelines: INR less than 2.0, PTT less than OR equal to 43.5 seconds, or Fibrinogen greater than or equal to 100 mg/dl indicate adequate procoagulant activity for hemostasis in patients without underlying bleeding disorders. International Normalization Ratio 1.3(H) 0.9 - 1.1 CERNER MILLENNIUM Blood specimen (specimen) 02/09/2014 5:05 PM EDT 02/09/2014 5:14 PM EDT Narrative Resulting Agency Comment Spec In Lab Misty De Guzman MD HEMATOLOGY ORDERABL ES Performing Organization Address [facility]/ZIP Co de Phone Number CERWALDO MURPHYENNIUM * (ABNORMAL) CBC (with Diff) (02/09/2014 5:05 PM EDT) White Blood Cell 14.4(H) 4.0 - 10.0 x10(3)/mc L CERNER MILLENNIUM Red Blood Cell 3.91(L) 4.63 - 6.08 x10(6)/mc L CERNER MILLENNIUM Hemoglobin 11.4(L) 13.7 - 17.5 gm/dL CERNER MILLENNIUM Hematocrit 35.4(L) 40.0 - 51.0 % CERNER MILLENNIUM Mean Cell Volume 90.5 79.0 - 92.0 fL CERNER MILLENNIUM Mean Cell Hemoglobin 29.2 25.6 - 32.2 pg CERNER MILLENNIUM Mean Cell Hemoglobin Concentration 32.2 32.0 - 36.5 gm/dL CERNER MILLENNIUM Platelet 236 145 - 370 x10(3)/mc L CERNER MILLENNIUM RDW Standard Deviation 48.1(H) 35.0 - 46.0 fL CERWALDO MURPHYENNIUM RDW coefficient of variation 14.6(H) 10.9 - 14.4 % CERWALDO MURPHYENNIUM Mean Platelet Volume 9.7 9.0 - 12.0 fL DERICK MURPHYENNIUM Blood specimen (specimen) 02/09/2014 5:05 PM EDT 02/09/2014 5:14 PM EDT Narrative Resulting Agency Comment Spec In Lab Misty De Guzman MD HEMATOLOGY ORDERABL ES Performing Organization Address [facility] Co de Phone Number DERICK MURPHY * POCT Glucose (02/09/2014 5:05 PM EDT) Glucose, POC 132 60 - 199 mg/dL DERICK MURPHY Comment: Supplemental ranges: <110 mg/dL before meals <200 mg/dL all other times of the day Blood specimen (specimen) 02/09/2014 5:05 PM EDT 02/09/2014 5:05 PM EDT Misty De Guzman MD POINT OF CARE TEST ORDERABLES Performing Organization Address [facility] Phone Number DERICK MURPHY * XR Fluoro Upper GI Small Bowel (02/09/2014 3:50 PM EDT) Anatomical Region Laterality Modality N/A Radiographic Sia ging 02/09/2014 3:50 PM EDT Narrative 02/10/2014 12:05 PM EDT Examination UGI W/SMALL BOWEL FOLLOW THROU Clinical History s/p gastric bypass, eval GJ and JJ anastomoses Comparison None Technique Vacuum Filter Operator views of the abdomen. Oral administration of [...] GJ and JJ anastomoses Comparison None Technique Vacuum Filter Operator views of the abdomen. Oral administration of [...] reviewed by the attending Homero Gonzales MD [facility] CAROLIN GRECO * POCT Glucose (02/09/2014 11:56 AM EDT) Glucose, POC 162 60 - 199 mg/dL [facility] Comment: Supplemental ranges: <110 mg/dL before meals <200 mg/dL all other times of the day Blood specimen (specimen) 02/09/2014 11:56 AM EDT 02/09/2014 11:56 AM EDT Misty De Guzman MD POINT OF CARE TEST ORDERABLES Performing Organization Address City/[facility] Co de Phone Number [facility] * POCT Glucose (02/09/2014 7:19 AM EDT) Glucose, POC 182 60 - 199 mg/dL [facility] Comment: Supplemental ranges: <110 mg/dL before meals <200 mg/dL all other times of the day Blood specimen (specimen) 02/09/2014 7:19 AM EDT 02/09/2014 7:19 AM EDT Misty De Guzman MD POINT OF CARE TEST ORDERABLES Performing Organization Address City/[facility] Co de Phone Number [facility] * POCT Glucose (02/09/2014 4:53 AM EDT) Glucose, POC 159 60 - 199 mg/dL [facility] Comment: Supplemental ranges: <110 mg/dL before meals <200 mg/dL all other times of the day Blood specimen (specimen) 02/09/2014 4:53 AM EDT 02/09/2014 4:53 AM EDT Misty De Guzman MD POINT OF CARE TEST ORDERABLES [facility] * (ABNORMAL) Differential, Automated (02/09/2014 4:37 AM EDT) Neutrophil % 80.9(H) 34.0 - 71.0 % CERNER MILLENNIUM Neutrophil Absolute 10.39(H) 1.50 - 6.30 x10(3)/mc L CERNER MILLENNIUM Lymph % 5.7(L) 19.0 - 53.0 % CERNER MILLENNIUM Lymphocytes Abs 0.7(L) 1.0 - 3.6 x10(3)/mc L CERNER MILLENNIUM Monocyte % 12.9 4.0 - 13.0 % CERNER MILLENNIUM Monocyte Abs 1.7(H) 0.2 - 1.0 x10(3)/mc L CERNER MILLENNIUM Eos % 0.1 0.0 - 7.0 % CERNER MILLENNIUM Eosinophils Abs 0.0 0.0 - 0.5 x10(3)/mc L CERNER MILLENNIUM Basophil % 0.2 0.0 - 2.0 % CERNER MILLENNIUM Baso Absolute 0.0 0.0 - 0.2 x10(3)/mc L CERNER MILLENNIUM Immature Gran % 0.20 0.00 - 0.66 % CERNER MILLENNIUM Comment: Immature granulocytes(IG's)percentage and absolute count will include metamyelocytes, myelocytes, and promyelocytes. Blood smears from CBCs yielding IG's will be scanned manually for concordance. If this scan disagrees with the automated IG or if promyelocytes are noted, a manual differential will be performed. Immature Gran Absolute 0.03 0.00 - 0.05 x10(3)/mc L [facility]ER JEFFREYENNIUM Blood specimen (specimen) 02/09/2014 4:37 AM EDT 02/09/2014 5:07 AM EDT Homero Gonzales MD HEMATOLOGY SANDY GRECO DERICK MURPHYENNIUM * Scan, Peripheral Blood (02/09/2014 4:37 AM EDT) Plat estimate Normal CERNER MILLENNIUM RBC Morphology Abnormal CERNE R MILLENNIUM Ovalocytes 1-5 /HPF CERNER MILLENNIUM Blood specimen (specimen) 02/09/2014 4:37 AM EDT 02/09/2014 5:07 AM EDT Narrative Resulting Agency Comment Spec In Lab Homero Gonzales MD HEMATOLOGY SANDY GRECO Performing Organization Address [facility] Co de Phone Number [facility] * Phosphorus (02/09/2014 4:37 AM EDT) Phosphorus 4.5 2.5 - 4.5 mg/dL [facility] Blood specimen (specimen) 02/09/2014 4:37 AM EDT 02/09/2014 5:07 AM EDT Narrative Resulting Agency Comment Spec In Lab Homero Gonzales MD CHEMISTRY ORDER RICCARDO Performing Organization Address [facility] de Phone Number [facility] * Magnesium (02/09/2014 4:37 AM EDT) Magnesium 0.75 0.69 - 1.07 mmol/L [facility] Blood specimen (specimen) 02/09/2014 4:37 AM EDT 02/09/2014 5:07 AM EDT Narrative Resulting Agency Comment Spec In Lab Homero Gonzales MD CHEMISTRY ORDER RICCARDO Performing Organization Address [facility] de Phone Number [facility] * (ABNORMAL) Glucose, fasting (02/09/2014 4:37 AM EDT) Glucose Fasting 176(H) 65 - 99 mg/dL [facility] Comment: ?Fasting* Glucose Interpretive Criteria Normal ?65-99 [...] of Diabetes Mellitus, Position Statement from the [employer]. ??Diabetes Care, Volume 33, Supplement 1, Oct 2009 Blood specimen (specimen) 02/09/2014 4:37 AM EDT 02/09/2014 5:07 AM EDT Narrative Resulting Agency Comment Spec In Lab Homero Gonzales MD CHEMISTRY ORDER RICCARDO Performing Organization Address [facility] Co de Phone Number DERICK MURPHYiovationIUM * Creatinine (02/09/2014 4:37 AM EDT) Creatinine 1.13 0.80 - 1.50 mg/dL [facility]ER [facility]NI[facility] Comment: Please note that the pediatric reference intervals supplied above were not validated at [facility]. Results from pediatric patients should be interpreted in conjunction to the patient's age, height and muscle mass. Est Glomerular Filtration Rate >60 >=60 CERNER MILLENNIUM Comment: This estimated [...] MD CHEMISTRY ORDER RICCARDO Performing Organization Address City/[facility] Co de Phone Number DERICK MURPHYiovationIUM * BUN (02/09/2014 4:37 AM EDT) Blood Urea Nitrogen 18 10 - 20 mg/dL CERNER NuvilexENNIUM Blood specimen (specimen) 02/09/2014 4:37 AM EDT [...] 102 98 - 107 mmol/L CERNER MILLENNIUM Carbon Dioxide 23 22 - 31 mmol/L CERNER MILLENNIUM Anion Gap 14 5 - 15 mmol/L CERNER MILLENNIUM Blood specimen (specimen) 02/09/2014 4:37 AM EDT 02/09/2014 5:07 AM EDT Narrative Resulting Agency Comment Spec In Lab Homero Gonzales MD CHEMISTRY ORDER RICCARDO CERNER MILLENNIUM * (ABNORMAL) CBC (with Diff) (02/09/2014 4:37 AM EDT) White Blood Cell 12.8(H) 4.0 - 10.0 x10(3)/mc L CERNER MILLENNIUM Red Blood Cell 4.31(L) 4.63 - 6.08 x10(6)/mc L CERNER MILLENNIUM Hemoglobin 12.7(L) 13.7 - 17.5 gm/dL CERNER MILLENNIUM Hematocrit 38.6(L) 40.0 - 51.0 % CERNER MILLENNIUM Mean Cell Volume 89.6 79.0 - 92.0 fL CERNER MILLENNIUM Mean Cell Hemoglobin 29.5 25.6 - 32.2 pg CERNER MILLENNIUM Mean Cell Hemoglobin Concentration 32.9 32.0 - 36.5 gm/dL CERNER MILLENNIUM Platelet 249 145 - 370 x10(3)/mc L [facility] RDW Standard Deviation 46.6(H) 35.0 - 46.0 fL [facility] RDW coefficient of variation 14.2 10.9 - 14.4 % [facility] Mean Platelet Volume 9.9 9.0 - 12.0 fL [facility] Blood specimen (specimen) 02/09/2014 4:37 AM EDT 02/09/2014 5:07 AM EDT Narrative Resulting Agency Comment Spec In Lab Homero Gonzales MD HEMATOLOGY SANDY GRECO Performing Organization Address City/[facility]/ZIP Co de Phone Number [facility] * POCT Glucose (02/09/2014 12:26 AM EDT) Glucose, POC 165 60 - 199 mg/dL [facility] Comment: Supplemental ranges: <110 mg/dL before meals <200 mg/dL all other times of the day Blood specimen (specimen) 02/09/2014 12:26 AM EDT 02/09/2014 12:26 AM EDT Misty De Guzman MD POINT OF CARE TEST ORDERABLES Performing Organization Address [facility]/ZIP Co de Phone Number [facility] * POCT Glucose (02/08/2014 7:01 PM EDT) Glucose, POC 152 60 - 199 mg/dL [facility] Comment: Supplemental ranges: <110 mg/dL before meals <200 mg/dL all other times of the day Blood specimen (specimen) 02/08/2014 7:01 PM EDT 02/08/2014 7:01 PM EDT Misty De Guzman MD POINT OF CARE TEST ORDERABLES Performing Organization Address [facility]/ZIP Co de Phone Number [facility] * POCT Glucose (02/08/2014 3:23 PM EDT) Glucose, POC 175 60 - 199 mg/dL CERNER MILLENNIUM Comment: Supplemental ranges: <110 mg/dL before meals <200 mg/dL all other times of the day Blood specimen (specimen) 02/08/2014 3:23 PM EDT 02/08/2014 3:23 PM EDT Misty De Guzman MD POINT OF CARE TEST ORDERABLES Performing Organization Address [facility] Phone Number [facility] * POCT Glucose (02/08/2014 9:29 AM EDT) Glucose, POC 133 60 - 199 mg/dL [facility] NuvilexENNIUM Comment: Supplemental ranges: <110 mg/dL before meals <200 mg/dL all other times of the day Blood specimen (specimen) 02/08/2014 9:29 AM EDT 02/08/2014 9:29 AM EDT Misty De Guzman MD POINT OF CARE TEST ORDERABLES Performing Organization Address [facility] Phone Number DERICK MURPHY * Prothrombin Time (02/08/2014 8:34 AM EDT) Prothrombin Time 15.0 12.0 - 15.0 sec [facility] NuvilexENNIUM Comment: [facility] Transfusion Committee Guidelines: INR less than 2.0, PTT less than OR equal to 43.5 seconds, or Fibrinogen greater than or equal to 100 mg/dl indicate adequate procoagulant activity for hemostasis in patients without underlying bleeding disorders. International Normalization Ratio 1.1 0.9 - 1.1 DERICK MILLENNIUM Blood specimen (specimen) 02/08/2014 8:34 AM EDT 02/08/2014 8:38 AM EDT Narrative Resulting Agency Comment Spec In Lab Misty De Guzman MD HEMATOLOGY ORDERABL ES Performing Organization Address [facility] Phone Number DERICK MURPHY documented in this [...] Discontinued, STAT 1814 (Given - Provider: Demi Jnug RN)2334 (Given - Provider: Bari Duckworth RN) 0604 (Given - Provider: Bari Duckworth RN)1147 (Given - Provider: Ora Vela, RN) insulin aspart (novoLOG) VIAL injection 1-4 Units (CANCELED) 1-4 Units, Subcutaneous, EVERY 4 HOURS SCHEDULED, First dose on 02/08/14 at 2000, Until Discontinued, CORRECTION BOLUS Sensitive [...] Discontinued, Routine 1059 (Given - Provider: Ora Vela RN) ramipril (ALTACE) capsule 10 mg (CANCELED) [...] Jung RN)2017 (Given - Provider: Bari Duckworth, RN) 0839 (Given - Provider: Ora Vela RN) [...] Procedural area)1401 (DEC Unhold - Provider: Admin Adt)2113 (Given - [...] Provider: Admin Adt)211 (Given - Provider: Mikayla Lincoln RN) 0800 (Given - Provider: Demi Jung, [...] Lincoln RN)0427 (Rate/Dose Change - Provider: Mikayla Lincoln RN)0739 (Rate/Dose Change - Provider: Tierra Frost RN)0931 (DEC Hold - Provider: Admin Adt - Reason: Transfer to a Procedural area)1233 (DEC Unhold - Provider: Meliton Mcpherson, FRACISCO)1257 (Rate/Dose Verify - Provider: Meliton Mcpherson, RN)2141 (New Bag - Provider: Mikayla Lincoln RN) 0439 (Rate/Dose Verify - Provider: Mikayla Lincoln RN)0638 (New Bag - Provider: Mary Hou RN)0745 (Rate/Dose Change - Provider: Demi Jung RN)1928 (Rate/Dose Verify - Provider: Bari Duckworth, RN) 0034 (New Bag - Provider: Bari Duckworth RN)0633 (Stopped - Provider: Bari Duckworth RN) HYDROmorphone (DILAUDID) 1 mg/mL 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 PROCESSOR 30 mL (CANCELED) Intravenous, ENROLLMENT PROCESSOR ONLY, Starting on 02/08/14 at 1545, Until Diamond 02/11/14 at 0721 1306 (Restarted - Provider: Meliton Mcpherson, RN) lactated ringers infusion (CANCELED) 40 mL/hr, Intravenous, CONTINUOUS, Starting on 02/08/14 at 1545, Until 02/12/14 at 0658 0150 (New Bag - Provider: Mikayla Lincoln, FRACISCO)0931 (DEC Hold - Provider: Admin Adt - [...] MD) documented in this encounter Care Teams Heel Former Relationship Specialty Start Date End Date Manolo Castro MD [address] [place] [id number] PCP - General 05/14/12 04/21/17 documented as of this encounter
--- OUTSIDE RECORDS SUMMARY | 2024-06-09 09:20 | XMS_ITS | Encounter Summary ---
Author Organization [facility] [place] [address] Care Team Providers Care Saw Handle Assembler Name Role Phone Manolo Castro MD Primary Care Provider [phone] Encounter Details Date Type Department Care Team (Late st Contact Info) Description 02/08/2014 Notes [place] [address] Narda Allen, V[employer]ATER [facility] [place] [address] Social History Tobacco Use Types Packs/Day Years [...] EDT Preop Lab done on 02/04/14 at [facility] received: WBC 6.18 Hg 13.4 Hct 41 plt 221. CMP WNL x BUN 27. Cr 1.2 GFR> 60 documented in this encounter Plan of Treatment Not on file documented as of this encounter Visit Diagnoses Not on filedocumented in this encounter Care Teams Saw Handle Assembler Relationship Specialty Start Date End Date Manolo Castro MD [address] [place] [address] PCP - General 05/14/12 04/21/17 documented as of this encounter
--- OUTSIDE RECORDS SUMMARY | 2024-06-09 09:20 | XMS_ITS | Encounter Summary ---
[facility] Organization [facility] [place] [address] Care Team Providers Care Manager Of Operations Name Role Phone Manolo Castro MD Primary Care Provider [phone] Encounter Details Date Type Department Care Team (Latest Contact Info) Description 02/08/2014 7:54 AM EDT - 02/12/2014 12:50 PM EDT Hospital Encounter [address] [place] [address] Misty De Guzman MD [facility] [place] [address] Atrial fibrillation Discharge Disposition: Home Social History [...] EDT BARIATRIC SURGERY DISCHARGE INFORMATION CONTACT INFORMATION: [phone] Surgeons: Cyndi Lujan Laycock and Hadley [phone] Coordinator Mining Products: [phone] (Saturday through Saturday, 8:00 AM -5:00 PM) Dietitian: [phone] Non-business hours: [phone], ask for general surgeon director television news FOR EMERGENCIES: CALL 911 (trouble breathing, chest [...] had open gastric bypass and have kellie: [place] should be removed 10 - 12 days after surgery. This can be done at [facility] or via Primary Care Provider (PCP). Do [...] 200 on more than 3 rechecks, [facility] or diabetic specialist for [...] Follow up with primary care doctor or ecmo specialist in 1-2 weeks. Bring meter to [...] Provider Department Center 03/02/2014 3:00 PM Bariatric, Combiner Operator Leb Surg [facility] 03/02/2014 3:40 PM [...] 10:09 AM EDT Care Management/ CRC Pager# [phone]/ Assessment and Initial discharge planning S: I am feeling pretty good today. I had some jello and some apple juice. That is a good thing! My son Momo will be helping me when I am able to go home. O: Met with patient this morning. Notes reviewed. [place] Patient has Cigna, National OOS Blue PPO, and Medicare (part A only) insurance. No [facility]. Patient is POD# 3 laparoscopic Keyhsa-en-Y gastric bypass, POD# 1 laparoscopy, evacuation of [...] q4hr prn. 99% on 2liters oxygen via psychiatric arnp this morning. A: Patient progressing post-op. Patient [...] is stable and Pain well controlled DC CALENDER LET OFF OPERATOR and start Oxycodone liquid for pain controll [...] continue to monitor on tele. * Tierra rFost RN - 02/10/2014 6:52 PM EDT TELE [...] Office of Care Management (OCM) / Clinical Hvac Design Engineer (CRC)/ Initial Assessment Discussed patient with Provider Team and in multidisciplinary discharge-planning rounds. Reviewed record; patient off unit for procedure. Introduced/reviewed CRC role and services accepted. REASON for HOSPITALIZATION:s/p keysha-en-y gastric bypass NPO; CALENDER LET OFF OPERATOR; IVF's;UGI/SBF pending;Lovenox (on Coumadin for AF) PMH Past Medical History Diagnosis Date ??? Blood disorder ??? Circulatory disease ??? 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 PRIMARY CARE PHYSICIAN: MANOLO CASTRO MD [place] [id number] / [facility] [id number] POTENTIAL DISCHARGE NEEDS: none anticipated PATIENT/FAMILY EDUCATION NEEDS:per discharge summary ANTICIPATED BARRIERS TO DISCHARGE:none TRANSPORTATION @ D/C: PLAN: CRC will continue to monitor progress, follow for continuity of care and assist with discharge planning while hospitalized KENYATTA SANDS RN CRC for Melba Elmore RN CRC pager [phone] . * Ricky Trotter MD - 02/09/2014 [...] pain and nausea at this time. Using CALENDER LET OFF OPERATOR appropriately, patient very drowsy but easily woken. Lap sites CDI. HR irreg. Will continue to monitor. * Radha Sanchez RN - 02/08/2014 4:49 PM EDT Report to Claire 4w. Pt sleepy, easily arousable. States he is comfortable. Gave hr coordinator with instruction. documented in this encounter H&P [...] has currently had full participation in the [facility] Bariatric Surgery Program and meets [...] majority of our 40 minutes today in [id number] conversation regarding various treatment options for obesity [...] 02/13/2014 12:56 PM EDTAssociated Order(s): SCAN DOC: SURGERY ATTENDANT documented in this encounter Miscellaneous Notes * [...] part of your care. Bariatric Surgery - [phone]: Follow-up with Dr. De Guzman PCP: MANOLO CASTRO MD, . Please follow-up with your PCP in 1-2 weeks or sooner as needed. Scheduled Appointments: The following appointments have been scheduled on your behalf: Future Appointments and Orders Future Appointments: Provider: Department: Dept Phone: Center: 03/02/2014 3:00 PM Combiner Operator Bariatric General Surgery [phone] [facility] 03/02/2014 3:40 PM Misty De Guzman MD General Surgery [phone] [place] Outpatient Services/Studies: No discharge procedures on file. Instructions Given to Patient at Discharge: Provider Instructions BARIATRIC SURGERY DISCHARGE INFORMATION CONTACT INFORMATION: [phone] Surgeons: Cyndi Lujan Laycock and Hadley [phone] Coordinator Mining Products: [phone] (Saturday through Saturday, 8:00 AM -5:00 PM) Dietitian: [phone] Non-business hours: [phone], ask for general surgeon director television news FOR EMERGENCIES: CALL 911 (trouble breathing, chest [...] after surgery. This can be done at [facility] or via Primary Care Provider (PCP). Do [...] Follow up with primary care doctor or ecmo specialist in 1-2 weeks. Bring meter to [...] Provider Department Center 03/02/2014 3:00 PM Bariatric, Combiner Operator Leb Surg [facility] 03/02/2014 3:40 PM Misty De Guzman [facility] General Instructions None Future Appointments and Orders Future Appointments: Provider: Department: Dept Phone: Center: 03/02/2014 3:00 PM Combiner Operator Bariatric General Surgery [phone] [place] 03/02/2014 3:40 PM Misty De Guzman MD General Surgery [phone] [facility] Call your doctor if: Please call [...] managed by the Bariatric Surgery Team at [facility]. If you have any questions or concerns, please feel free to contact us. Provider Contact Information: General Surgery Clinic: [facility] (after business hours): CC: MANOLO CASTRO MD [...] flowsheet for pain assessment. Pt with Dilaudid CALENDER LET OFF OPERATOR 0.3/15/5 pt understands use, not utilized overnight. [...] pain. Pt stating good relief with Dilaudid CALENDER LET OFF OPERATOR. Pt reporting no nausea,SOB or chest pain. Assessment as documented. Will continue to monitor. * Op Note - Misty De Guzman MD - 02/10/2014 2:56 PM EDT [facility] Operative Note Patient Name: Eugene Rueda : [id number] MR#: [id number] Case Date: 02/10/2014 Surgeon: Surgeon(s) and Role: * Misty De Guzman MD - Primary * Ricky Trotter MD - Resident-Sky Line Yarder * Homero Hernandez MD - [facility] Preoperative diagnosis: post-op bleeding s/p rnygb Postoperative [...] Operative Note Patient Name: Eugene Rueda : [id number] MR#: [id number] Case Date: 02/10/2014 Surgeon: Surgeon(s) and Role: * Misty De Guzman MD - Primary * Ricky Trotter MD - Resident-Sky Line Yarder * Homero Hernandez MD - Resident-Sky Line Yarder Preoperative diagnosis: post-op bleeding s/p rnygb Postoperative [...] Operative Note Patient Name: Eugene Rueda : [id number] MR#: [id number] Case Date: 02/10/2014 Surgeon: Surgeon(s) and Role: * Misty De Guzman MD - Primary * Ricky Trotter MD - Resident-Sky Line Yarder * Homero Hernandez MD - Resident-Sky Line Yarder Preoperative diagnosis: post-op bleeding s/p rnygb Postoperative diagnosis: post-op bleeding s/p rnygb Procedure(s): LAPAROSCOPY, DIAGNOSTIC, ABDOMEN Anesthesia: General Findings: dense clot under liver and diaphragm, no site of active bleeding Complications: none Fluids: 1300cc Estimated Blood Loss: 500cc Drains: 10 Slovak MONICA drain Disposition: awakened from anesthesia, extubated [...] Operative Note Patient Name: Eugene Rueda : [id number] MR#: [id number] Case Date: 02/08/2014 Surgeon: Surgeon(s) and Role: [...] Guzman MD - 02/08/2014 9:37 AM EDT [facility] Operative Note Patient Name: Eugene Rueda : [id number] MR#: [id number] Case Date: 02/08/2014 Surgeon: Surgeon(s) and Role: [...] engaged with the bariatric surgery program at [facility]. He has multiple weight-related comorbidities, he meets NIH criteria for weight loss surgery, and he has had full participation in the [facility] bariatric surgery program. Following review of his [...] posteriorly and encircle the esophagus with a [place] drain. This was held in place using [...] all other items from the esophagus. The [place] 60 blue load was angled horizontally at [...] and the small-bowel serosa, and using an [place] 60 with a white load the jejunum [...] fashioned using a single firing of the [place] 60 with a white load. That enterotomy [...] limb, and a partial firing of the [place] 60 blue load at 30 mm was formed for the gastrojejunostomy. A 30-Slovak bougie was then passed by Anesthesia down [...] Procedure Name Priority Date/Time Associated Diagnosis Comments SURGERY ATTENDANT SCAN 02/13/2014 12:56 PM EDT POCT GLUCOSE [...] in this encounter Results * SCAN DOC: SURGERY ATTENDANT (02/13/2014 12:56 PM EDT) Anatomical Region Laterality Modality Other Narrative 02/13/2014 1:14 PM EDT Procedure Note Provider, Scanning - 02/13/2014 12:56 PM EDT Scanning Provider MEDIA MGR SCAN EXT O RDR/RSLT * POCT Glucose (02/12/2014 12:09 PM EDT) Glucose, POC 145 60 - 199 mg/dL [facility] MILL[facility] Comment: Supplemental ranges: <110 mg/dL before meals <200 mg/dL all other times of the day Blood specimen (specimen) 02/12/2014 12:09 PM EDT 02/12/2014 12:09 PM EDT Misty De Guzman MD POINT OF CARE TEST ORDERABLES [facility] * POCT Glucose (02/12/2014 7:04 AM EDT) Glucose, POC 134 60 - 199 mg/dL [facility] Comment: Supplemental ranges: <110 mg/dL before meals <200 mg/dL all other times of the day Blood specimen (specimen) 02/12/2014 7:04 AM EDT 02/12/2014 7:04 AM EDT Misty De Guzman MD POINT OF CARE TEST ORDERABLES DERICK KRAFTIUM * (ABNORMAL) Differential, Automated (02/12/2014 5:32 AM EDT) Neutrophil % 70.2 34.0 - 71.0 % [facility] Neutrophil Absolute 5.11 1.50 - 6.30 [...] EDT 02/12/2014 5:58 AM EDT Misty De Gzuman MD HEMATOLOGY ORDERABL ES [facility] * (ABNORMAL) Basic Metabolic Panel (non-fasting) (02/12/2014 5:32 AM EDT) [facility] Glucose 131 60 - 199 mg/dL CERNER MILLENNIUM Comment:Diabetes: >=200 mg/d L plus symptoms Blood Urea Nitrogen 16 10 - 20 mg/dL [facility]NI[facility] Creatinine 0.67(L) 0.80 - 1.50 mg/dL [facility]ENNI[facility] Comment: Please note that the pediatric reference intervals supplied above were not validated at [facility]. Results from pediatric patients should be interpreted [...] of variation 14.3 10.9 - 14.4 % [facility] Mean Platelet Volume 9.3 9.0 - 12.0 fL [facility] Blood specimen (specimen) 02/12/2014 5:32 AM EDT 02/12/2014 5:58 AM EDT Narrative Resulting Agency Comment Spec In Lab Misty De Guzman MD HEMATOLOGY ORDERABL ES Performing Organization Address [facility] de Phone Number [facility] * POCT Glucose (02/12/2014 3:50 AM EDT) Glucose, POC 123 60 - 199 mg/dL [facility] Comment: Supplemental ranges: <110 mg/dL before meals <200 mg/dL all other times of the day Blood specimen (specimen) 02/12/2014 3:50 AM EDT 02/12/2014 3:50 AM EDT Misty De Guzman MD POINT OF CARE TEST ORDERABLES Performing Organization Address [facility] de Phone Number [facility] * POCT Glucose (02/11/2014 11:26 PM EDT) Glucose, POC 178 60 - 199 mg/dL [facility] Comment: Supplemental ranges: <110 mg/dL before meals <200 mg/dL all other times of the day Blood specimen (specimen) 02/11/2014 11:26 PM EDT 02/11/2014 11:26 PM EDT Misty De Guzman MD POINT OF CARE TEST ORDERABLES Performing Organization Address [facility] de Phone Number [facility] * POCT Glucose (02/11/2014 7:20 PM EDT) Glucose, POC 140 60 - 199 mg/dL [facility] Comment: Supplemental ranges: <110 mg/dL before meals <200 mg/dL all other times of the day Blood specimen (specimen) 02/11/2014 7:20 PM EDT 02/11/2014 7:20 PM EDT Misty De Guzman MD POINT OF CARE TEST ORDERABLES Performing Organization Address City/[facility] Co de Phone Number DERICK KRAFTIUM * POCT Glucose (02/11/2014 4:15 PM EDT) Glucose, POC 149 60 - 199 mg/dL [facility] Comment: Supplemental ranges: <110 mg/dL before meals <200 mg/dL all other times of the day Blood specimen (specimen) 02/11/2014 4:15 PM EDT 02/11/2014 4:15 PM EDT Misty De Guzman MD POINT OF CARE TEST ORDERABLES Performing Organization Address [facility] Phone Number DERICK KRAFTIUM * POCT Glucose (02/11/2014 11:45 AM EDT) Glucose, POC 157 60 - 199 mg/dL [facility] JEFF[facility]EN[facility] Comment: Supplemental ranges: <110 mg/dL before meals <200 mg/dL all other times of the day Blood specimen (specimen) 02/11/2014 11:45 AM EDT 02/11/2014 11:45 AM EDT Misty De Guzman MD POINT OF CARE TEST ORDERABLES Performing Organization Address [facility] de Phone Number DERICK KRAFTIUM * POCT Glucose (02/11/2014 6:56 AM EDT) Glucose, POC 158 60 - 199 mg/dL [facility] MILL[facility] Comment: Supplemental ranges: <110 mg/dL before meals <200 mg/dL all other times of the day Blood specimen (specimen) 02/11/2014 6:56 AM EDT 02/11/2014 6:56 AM EDT Misty De Guzman MD POINT OF CARE TEST ORDERABLES Performing Organization Address City/[facility] Co de Phone Number DERICK MURPHYENNIUM * (ABNORMAL) Differential, Automated (02/11/2014 4:46 AM EDT) Neutrophil % 80.0(H) 34.0 - 71.0 % [facility] Neutrophil Absolute 8.15(H) 1.50 - 6.30 x10(3)/mc L [facility] Lymph % 7.6(L) 19.0 - 53.0 % [...] MD HEMATOLOGY ORDERABL ES [facility]ERW[facility] * (ABNORMAL) CBC (with Diff) (02/11/2014 4:46 [...] Misty De Guzman MD HEMATOLOGY ORDERABL ES [facility] * (ABNORMAL) Basic Metabolic Panel (non-fasting) (02/11/2014 4:46 AM EDT) [facility] Glucose 152 60 - 199 mg/dL [facility] MILLENNI[facility] Comment:Diabetes: >=200 mg/d L plus symptoms Blood Urea Nitrogen 17 10 - 20 mg/dL [facility] Creatinine 0.90 0.80 - 1.50 mg/dL [facility] Comment: Please note that the pediatric reference intervals supplied above were not validated at [facility]. Results from pediatric patients should be interpreted [...] MD CHEMISTRY ORDERABLE S Performing Organization Address [facility] Co de Phone Number [facility] * POCT Glucose (02/11/2014 4:35 AM EDT) Glucose, POC 151 60 - 199 mg/dL [facility] Comment: Supplemental ranges: <110 mg/dL before meals <200 mg/dL all other times of the day Blood specimen (specimen) 02/11/2014 4:35 AM EDT 02/11/2014 4:35 AM EDT Misty De Guzman MD POINT OF CARE TEST ORDERABLES Performing Organization Address [facility] Co de Phone Number [facility] * POCT Glucose (02/10/2014 11:29 PM EDT) Glucose, POC 146 60 - 199 mg/dL [facility] Comment: Supplemental ranges: <110 mg/dL before meals <200 mg/dL all other times of the day Blood specimen (specimen) 02/10/2014 11:29 PM EDT 02/10/2014 11:29 PM EDT Misty De Guzman MD POINT OF CARE TEST ORDERABLES Performing Organization Address [facility] de Phone Number [facility] * POCT Glucose (02/10/2014 7:58 PM EDT) Glucose, POC 112 60 - 199 mg/dL [facility] Comment: Supplemental ranges: <110 mg/dL before meals <200 mg/dL all other times of the day Blood specimen (specimen) 02/10/2014 7:58 PM EDT 02/10/2014 7:58 PM EDT Misty De Guzman MD POINT OF CARE TEST ORDERABLES Performing Organization Address [facility] Phone Number [facility] * POCT Glucose (02/10/2014 4:06 PM EDT) Glucose, POC 141 60 - 199 mg/dL [facility] Comment: Supplemental ranges: <110 mg/dL before meals <200 mg/dL all other times of the day Blood specimen (specimen) 02/10/2014 4:06 PM EDT 02/10/2014 4:06 PM EDT Misty De Guzman MD POINT OF CARE TEST ORDERABLES Performing Organization Address [facility] de Phone Number [facility] * (ABNORMAL) Differential, Automated (02/10/2014 3:50 PM EDT) Neutrophil % 82.5(H) 34.0 - 71.0 % [facility] Neutrophil Absolute 9.11(H) 1.50 - 6.30 x10(3)/mc L [facility] Lymph % 8.9(L) 19.0 - 53.0 % [facility] Lymphocytes Abs 1.0 1.0 - 3.6 x10(3)/mc [...] Hemoglobin Concentration 32.5 32.0 - 36.5 gm/dL [facility] Platelet 185 145 - 370 x10(3)/mc L [facility] RDW Standard Deviation 49.1(H) 35.0 - 46.0 fL [facility] RDW coefficient of variation 14.7(H) 10.9 - 14.4 % [facility] Mean Platelet Volume 9.5 9.0 - 12.0 fL [facility] Blood specimen (specimen) 02/10/2014 3:50 PM EDT 02/10/2014 3:56 PM EDT Narrative Resulting Agency Comment Spec In Lab Misty De Guzman MD HEMATOLOGY ORDERABL ES Performing Organization Address City/[facility]/ZIP Co de Phone Number [facility] * POCT Glucose (02/10/2014 12:34 PM EDT) Glucose, POC 160 60 - 199 mg/dL [facility] Comment: Supplemental ranges: <110 mg/dL before meals <200 mg/dL all other times of the day Blood specimen (specimen) 02/10/2014 12:34 PM EDT 02/10/2014 12:34 PM EDT Misty De Guzman MD POINT OF CARE TEST ORDERABLES Performing Organization Address [facility] Co de Phone Number [facility] * (ABNORMAL) Prothrombin Time (02/10/2014 7:33 AM EDT) Prothrombin Time 17.0(H) 12.0 - 15.0 sec [facility] Comment: [facility] Transfusion Committee Guidelines: INR less than 2.0, PTT less than OR equal to 43.5 seconds, or Fibrinogen greater than or equal to 100 mg/dl indicate adequate procoagulant activity for hemostasis in patients without underlying bleeding disorders. International Normalization Ratio 1.3(H) 0.9 - 1.1 [facility] Blood specimen (specimen) 02/10/2014 7:33 AM EDT [...] De Guzman MD CHEMISTRY ORDERABLE S [facility]FFREYENNI[facility] * (ABNORMAL) Hemogram (02/10/2014 7:33 [...] MD HEMATOLOGY ORDERABL ES Performing Organization Address [facility] Co de Phone Number DERICK KRAFTIUM * POCT Glucose (02/10/2014 7:25 AM EDT) Glucose, POC 131 60 - 199 mg/dL [facility] Comment: Supplemental ranges: <110 mg/dL before meals <200 mg/dL all other times of the day Blood specimen (specimen) 02/10/2014 7:25 AM EDT 02/10/2014 7:25 AM EDT Misty De Guzman MD POINT OF CARE TEST ORDERABLES Performing Organization Address [facility] de Phone Number DERICK KRAFTIUM * POCT Glucose (02/10/2014 4:11 AM EDT) Glucose, POC 144 60 - 199 mg/dL [facility] Comment: Supplemental ranges: <110 mg/dL before meals <200 mg/dL all other times of the day Blood specimen (specimen) 02/10/2014 4:11 AM EDT 02/10/2014 4:11 AM EDT Misty De Guzman MD POINT OF CARE TEST ORDERABLES Performing Organization Address [facility] de Phone Number DERICK MURPHY * (ABNORMAL) Differential, Automated (02/10/2014 2:40 AM EDT) Neutrophil % 76.9(H) 34.0 - 71.0 % [facility] Neutrophil Absolute 8.07(H) 1.50 - 6.30 [...] Absolute 0.02 0.00 - 0.05 x10(3)/mc L [facility] Blood specimen (specimen) 02/10/2014 2:40 AM EDT 02/10/2014 2:55 AM EDT Misty De Guzman MD HEMATOLOGY ORDERABL ES Performing Organization Address [facility] Co de Phone Number DERICK MURPHYWhittlNEO * (ABNORMAL) Prothrombin Time (02/10/2014 2:40 AM EDT) Prothrombin Time 16.4(H) 12.0 - 15.0 sec [facility] Comment: [facility] Transfusion Committee Guidelines: INR less than [...] MD HEMATOLOGY ORDERABL ES Performing Organization Address [facility]/State/ZIP Co de Phone Number CERWALDO MURPHYWhittlIUM * APTT (02/10/2014 2:40 AM EDT) Partial Thromboplastin Time 33 25 - 35 sec [facility] Comment: Recommended therapeutic PTT range for full dose unfractionated heparin is 80-114 seconds. Blood specimen (specimen) 02/10/2014 2:40 AM EDT 02/10/2014 2:54 AM EDT Narrative Resulting Agency Comment Spec In Lab Misty De Guzman MD HEMATOLOGY ORDERABL ES [facility] * (ABNORMAL) CBC (with Diff) (02/10/2014 2:40 AM EDT) Pathologist [facility] White Blood Cell 10.5(H) 4.0 - 10.0 [...] Metabolic Panel (non-fasting) (02/10/2014 2:40 AM EDT) [facility] Glucose 142 60 - 199 mg/dL [facility] MILLENNI[facility] Comment:Diabetes: >=200 mg/d L plus symptoms Blood Urea Nitrogen 26(H) 10 - 20 mg/dL [facility] Creatinine 1.57(H) 0.80 - 1.50 mg/dL [facility] Comment: result rechecked- llu Please note that the pediatric reference intervals supplied above were not validated at [facility]. Results from pediatric patients should be interpreted [...] MD CHEMISTRY ORDERABLE S [facility] MILLENNIUM * POCT Glucose (02/09/2014 11:39 PM EDT) Glucose, POC 153 60 - 199 mg/dL [facility] Comment: Supplemental ranges: <110 mg/dL before meals <200 mg/dL all other times of the day Blood specimen (specimen) 02/09/2014 11:39 PM EDT 02/09/2014 11:39 PM EDT Misty De Guzman MD POINT OF CARE TEST ORDERABLES Performing Organization Address City/[facility] Co de Phone Number [facility] [facility] * EKG 12 Lead (02/09/2014 10:11 PM EDT) Ventricular rate 130 BPM MUSE SYSTEM Atrial Rate 86 BPM MUSE SYSTEM QRS Duration 76 ms MUSE SYSTEM Q-T Interval 332 ms MUSE SYSTEM QTC Calculated (Bezet) 488 ms MUSE SYSTEM Calculated R [place] 47 degrees MUSE SYSTEM Calculated T [place] 35 degrees MUSE SYSTEM INTERPRETATION Atrial fibrillation with rapid ventricular response Low voltage QRS Abnormal ECG When compared with ECG of 18-NOV-2013 13:19, No significant change was found Confirmed by MD Darío, Andrez ([id number]) on 02/10/2014 11:18:33 PM MUSE SYSTEM 02/09/2014 10:1 1 PM EDT 02/10/2014 11:18 PM EDT Misty De Guzman MD ECG ORDERABLES Performing Organization Address City/[facility]/ZIP Co de Phone Number MUSE SYSTEM * POCT Glucose (02/09/2014 10:03 PM EDT) Glucose, POC 115 60 - 199 mg/dL [facility] Comment: Supplemental ranges: <110 mg/dL before meals <200 mg/dL all other times of the day Blood specimen (specimen) 02/09/2014 10:03 PM EDT 02/09/2014 10:03 PM EDT Misty De Guzman MD POINT OF CARE TEST ORDERABLES DERICK KRAFTIUM * (ABNORMAL) Hemogram (02/09/2014 9:00 PM EDT) White Blood Cell 12.3(H) 4.0 - 10.0 x10(3)/mc L CERNER MILLENNIUM Red Blood Cell 3.70(L) 4.63 - 6.08 [...] MD HEMATOLOGY ORDERABL ES Performing Organization Address City/[facility] Co de Phone Number DERICK KRAFTIUM * Creatinine, urine, random (02/09/2014 8:50 PM EDT) Creatinine, Urine 170 mg/dL CERWALDO MURPHYENNIUM Urine specimen (specimen) 02/09/2014 8:50 PM EDT 02/09/2014 9:50 PM EDT Narrative Resulting Agency Comment Spec In Lab Misty De Guzman MD URINE ORDERABLES DERICK KRAFTIUM * Electrolytes, urine, random (02/09/2014 8:50 PM EDT) Sodium, Urine 34 mmol/L CERNER MILLENNIUM Potassium, Urine 56 mmol/L CERNER MILLENNIUM Chloride, Urine 22 mmol/L CERNER MILLENNIUM Urine specimen (specimen) 02/09/2014 8:50 PM EDT 02/09/2014 9:50 PM EDT Narrative Resulting Agency Comment Spec In Lab Misty De Guzman MD URINE ORDERABLES CERNER JEFFREYENNIUM * POCT Glucose (02/09/2014 7:21 PM EDT) Glucose, POC 116 60 - 199 mg/dL CERNER MILLENNIUM Comment: Supplemental ranges: <110 mg/dL before meals <200 mg/dL all other times of the day Blood specimen (specimen) 02/09/2014 7:21 PM EDT 02/09/2014 7:21 PM EDT Misty De Guzman MD POINT OF CARE TEST ORDERABLES Performing Organization Address City/[facility]/ZIP Co de Phone Number CERWALDO MURPHYENNIUM * [...] Absolute 0.04 0.00 - 0.05 x10(3)/mc L CERNER MILLENNIUM Blood specimen (specimen) 02/09/2014 5:05 PM EDT 02/09/2014 5:14 PM EDT Misty De Guzman MD HEMATOLOGY ORDERABL ES Performing Organization Address City/[facility]/ZIP Co de Phone Number CERWALDO MURPHYENNIUM * Antibody screen (02/09/2014 5:05 PM EDT) Ab Screen Interp Negative CERNER JEFFREYENNIUM Expires at [id number] on: [id number] CERNER MILLENNIUM Blood specimen (specimen) 02/09/2014 5:05 PM EDT 02/09/2014 5:14 PM EDT Narrative Resulting Agency Comment Spec In Lab Misty De Guzman MD BLOOD BANK LAB ORDNigel GRECO Performing Organization Address City/[facility]/ZIP Co de Phone Number CERWALDO MURPHYENNIUM * ABO/Rh Typing (02/09/2014 5:05 PM EDT) ABORH Type A Pos CERNER MILLENNIUM Blood specimen (specimen) 02/09/2014 5:05 PM EDT 02/09/2014 5:14 PM EDT Narrative Resulting Agency Comment Spec In Lab Misty De Guzman MD BLOOD BANK LAB ORDNigel GRECO Performing Organization Address City/[facility]/ZIP Co de Phone Number CERWALDO MURPHYENNIUM * (ABNORMAL) Basic Metabolic Panel (non-fasting) (02/09/2014 5:05 PM EDT) [facility] Glucose 144 60 - 199 mg/dL CERNER MILLENNIUM Comment:Diabetes: >=200 mg/d L plus symptoms Blood Urea Nitrogen 30(H) 10 - 20 mg/dL CERNER MILLENNIUM Comment:result rechecked- MT F Creatinine 2.96(H) 0.80 - 1.50 mg/dL CERNER MILLENNIUM Comment: result rechecked- MTF Please note that the pediatric reference intervals supplied above were not validated at [facility]. Results from pediatric patients should be interpreted [...] MD CHEMISTRY ORDERABLE S Performing Organization Address [facility] Co de Phone Number DERICK MURPHYENNIUM * APTT (02/09/2014 5:05 PM EDT) Partial Thromboplastin Time 31 25 - 35 sec CERNER MILLENNIUM Comment: Recommended therapeutic PTT range for full dose unfractionated heparin is 80-114 seconds. Blood specimen (specimen) 02/09/2014 5:05 PM EDT 02/09/2014 5:14 PM EDT Narrative Resulting Agency Comment Spec In Lab Misty De Guzman MD HEMATOLOGY ORDERABL ES Performing Organization Address [facility] de Phone Number DERICK KRAFTIUM * (ABNORMAL) Prothrombin Time (02/09/2014 5:05 PM EDT) Prothrombin Time 16.3(H) 12.0 - 15.0 sec CERWALDO MILLENNIUM Comment: [facility] Transfusion Committee Guidelines: INR less than 2.0, PTT less than OR equal to 43.5 seconds, or Fibrinogen greater than or equal to 100 mg/dl indicate adequate procoagulant activity for hemostasis in patients without underlying bleeding disorders. International Normalization Ratio 1.3(H) 0.9 - 1.1 DERICK MILLENNIUM Blood specimen (specimen) 02/09/2014 5:05 PM EDT 02/09/2014 5:14 PM EDT Narrative Resulting Agency Comment Spec In Lab Misty De Guzman MD HEMATOLOGY ORDERABL ES Performing Organization Address [facility] Co de Phone Number CERWALDO MURPHYENNIUM * [...] Standard Deviation 48.1(H) 35.0 - 46.0 fL CERNER MILLENNIUM RDW coefficient of variation 14.6(H) 10.9 - 14.4 % CERNER MILLENNIUM Mean Platelet Volume 9.7 9.0 - 12.0 fL CERNER MILLENNIUM Blood specimen (specimen) 02/09/2014 5:05 PM EDT 02/09/2014 5:14 PM EDT Narrative Resulting Agency Comment Spec In Lab Misty De Guzman MD HEMATOLOGY ORDERABL ES Performing Organization Address [facility] Co de Phone Number DERICK MURPHY * POCT Glucose (02/09/2014 5:05 PM EDT) [facility] Signature Glucose, POC 132 60 - 199 mg/dL CERWALDO MILLENNIUM Comment: Supplemental ranges: <110 mg/dL before meals <200 mg/dL all other times of the day Blood specimen (specimen) 02/09/2014 5:05 PM EDT 02/09/2014 5:05 PM EDT Misty De Guzman MD POINT OF CARE TEST ORDERABLES Performing Organization Address [facility] de Phone Number DERICK MURPHY * XR Fluoro Upper GI Small Bowel (02/09/2014 3:50 PM EDT) Anatomical Region Laterality Modality N/A Radiographic Sia ging 02/09/2014 3:50 PM EDT Narrative 02/10/2014 12:05 PM EDT Examination UGI W/SMALL BOWEL FOLLOW THROU Clinical History s/p gastric bypass, eval GJ and JJ anastomoses Comparison None Technique Skin Specialist views of the abdomen. Oral administration of [...] pouch consistent with the given history of Dleroy fundoplication. Contrast passes immediately from the gastric [...] GJ and JJ anastomoses Comparison None Technique Skin Specialist views of the abdomen. Oral administration of [...] Glucose, POC 162 60 - 199 mg/dL [facility] Comment: Supplemental ranges: <110 mg/dL before meals <200 mg/dL all other times of the day Blood specimen (specimen) 02/09/2014 11:56 AM EDT 02/09/2014 11:56 AM EDT Misty De Guzman MD POINT OF CARE TEST ORDERABLES [facility] * POCT Glucose (02/09/2014 7:19 AM EDT) Glucose, POC 182 60 - 199 mg/dL [facility] Comment: Supplemental ranges: <110 mg/dL before meals <200 mg/dL all other times of the day Blood specimen (specimen) 02/09/2014 7:19 AM EDT 02/09/2014 7:19 AM EDT Misty De Guzman MD POINT OF CARE TEST ORDERABLES [facility] * POCT Glucose (02/09/2014 4:53 AM EDT) Glucose, POC 159 60 - 199 mg/dL [email or web address].[email or web address] Comment: Supplemental ranges: <110 mg/dL before meals <200 mg/dL all other times of the day Blood specimen (specimen) 02/09/2014 4:53 AM EDT 02/09/2014 4:53 AM EDT Misty De Guzman MD POINT OF CARE TEST ORDERABLES Performing Organization Address City/State/[facility] Co de Phone Number CERNER MILLENNIUM * (ABNORMAL) Differential, Automated (02/09/2014 [...] 5:07 AM EDT Homero Gonzales MD HEMATOLOGY ORDNigel GRECO Performing Organization Address City/[facility]/ZIP Co de Phone Number [facility] * Scan, Peripheral Blood (02/09/2014 4:37 AM EDT) Plat estimate Normal [facility] RBC Morphology Abnormal CERNE R MILLENNIUM Ovalocytes 1-5 /HPF [facility] Blood specimen (specimen) 02/09/2014 4:37 AM EDT 02/09/2014 5:07 AM EDT Narrative Resulting Agency Comment Spec In Lab Homero Gonzales MD HEMATOLOGY ORDE ANGUS Performing Organization Address [facility]/ZIP Co de Phone Number [facility] * Phosphorus (02/09/2014 4:37 AM EDT) Pathologist [facility] Phosphorus 4.5 2.5 - 4.5 mg/dL [facility] Blood specimen (specimen) 02/09/2014 4:37 AM EDT 02/09/2014 5:07 AM EDT Narrative Resulting Agency Comment Spec In Lab Homero Gonzales MD CHEMISTRY ORDER RICCARDO Performing Organization Address [facility] Co de Phone Number [facility] * Magnesium (02/09/2014 4:37 AM EDT) Pathologist [facility] Magnesium 0.75 0.69 - 1.07 mmol/L [facility] Blood specimen (specimen) 02/09/2014 4:37 AM EDT 02/09/2014 5:07 AM EDT Narrative Resulting Agency Comment Spec In Lab Homero Gonzales MD CHEMISTRY ORDER RICCARDO Performing Organization Address [facility] Co de Phone Number [facility] * (ABNORMAL) Glucose, fasting (02/09/2014 4:37 AM EDT) Glucose Fasting 176(H) 65 - 99 mg/dL [facility] Comment: ?Fasting* Glucose Interpretive Criteria Normal ?65-99 [...] of Diabetes Mellitus, Position Statement from the [place] [employer]. ??Diabetes Care, Volume 33, Supplement 1, Oct 2009 Blood specimen (specimen) 02/09/2014 4:37 AM EDT 02/09/2014 5:07 AM EDT Narrative Resulting Agency Comment Spec In Lab Homero Gonzales MD CHEMISTRY ORDER RICCARDO [facility] SmartStudy.comDIGN[facility]ENTERSI-[facility] * Creatinine (02/09/2014 4:37 AM EDT) [facility] Signature Creatinine 1.13 0.80 - 1.50 mg/dL [facility] Comment: Please note that the pediatric reference intervals supplied above were not validated at [facility]. Results from pediatric patients should be interpreted in conjunction to the patient's age, height and muscle mass. Est Glomerular Filtration Rate >60 >=60 [facility] Comment: This estimated GFR (eGFR) value was [...] MD CHEMISTRY ORDER RICCARDO CERNER MILLENNIUM * BUN (02/09/2014 4:37 AM EDT) Blood Urea Nitrogen 18 10 - 20 mg/dL CERNER MILLENNIUM Blood specimen (specimen) 02/09/2014 4:37 AM EDT 02/09/2014 5:07 AM EDT Narrative Resulting Agency Comment Spec In Lab Homero Gonzales MD CHEMISTRY ORDER RICCARDO CERNER MILLENNIUM * Electrolytes panel (02/09/2014 4:37 AM EDT) Pathologist [facility] Sodium 139 135 - 145 mmol/L CERNER [...] Platelet 249 145 - 370 x10(3)/mc L CERNER MILLENNIUM RDW Standard Deviation 46.6(H) 35.0 - 46.0 fL CERNER MILLENNIUM RDW coefficient of variation 14.2 10.9 - 14.4 % CERNER MILLENNIUM Mean Platelet Volume 9.9 9.0 - 12.0 fL [facility] M[facility] Blood specimen (specimen) 02/09/2014 4:37 AM EDT 02/09/2014 5:07 AM EDT Narrative Resulting Agency Comment Spec In Lab Homero Gonzales MD HEMATOLOGY SANDY GRECO [facility] * POCT Glucose (02/09/2014 12:26 AM EDT) Glucose, POC 165 60 - 199 mg/dL [facility] Comment: Supplemental ranges: <110 mg/dL before meals <200 mg/dL all other times of the day Blood specimen (specimen) 02/09/2014 12:26 AM EDT 02/09/2014 12:26 AM EDT Misty De Guzman MD POINT OF CARE TEST ORDERABLES [facility] * POCT Glucose (02/08/2014 7:01 PM EDT) Glucose, POC 152 60 - 199 mg/dL [facility] Comment: Supplemental ranges: <110 mg/dL before meals <200 mg/dL all other times of the day Blood specimen (specimen) 02/08/2014 7:01 PM EDT 02/08/2014 7:01 PM EDT Misty De Guzman MD POINT OF CARE TEST ORDERABLES Performing Organization Address [facility] Co de Phone Number [facility]DIGN[facility] * POCT Glucose (02/08/2014 3:23 PM EDT) Glucose, POC 175 60 - 199 mg/dL [facility] Comment: Supplemental ranges: <110 mg/dL before meals <200 mg/dL all other times of the day Blood specimen (specimen) 02/08/2014 3:23 PM EDT 02/08/2014 3:23 PM EDT Misty De Guzman MD POINT OF CARE TEST ORDERABLES Performing Organization Address [facility] Phone Number [facility] * POCT Glucose (02/08/2014 9:29 AM EDT) Glucose, POC 133 60 - 199 mg/dL [facility] Comment: Supplemental ranges: <110 mg/dL before meals <200 mg/dL all other times of the day Blood specimen (specimen) 02/08/2014 9:29 AM EDT 02/08/2014 9:29 AM EDT Misty De Guzman MD POINT OF CARE TEST ORDERABLES Performing Organization Address [facility] Co de Phone Number [facility] * Prothrombin Time (02/08/2014 8:34 AM EDT) Prothrombin Time 15.0 12.0 - 15.0 sec [facility] Comment: [facility] Transfusion Committee Guidelines: INR less than 2.0, PTT less than OR equal to 43.5 seconds, or Fibrinogen greater than or equal to 100 mg/dl indicate adequate procoagulant activity for hemostasis in patients without underlying bleeding disorders. International Normalization Ratio 1.1 0.9 - 1.1 [employer] [facility] [facility] [facility] MILLENNIUM Blood specimen (specimen) 02/08/2014 8:34 AM EDT 02/08/2014 8:38 AM EDT Narrative Resulting Agency Comment Spec In Lab Misty De Guzman MD HEMATOLOGY ORDERABL ES DERICK MURPHY documented [...] EDT 40 mg HYDROmorphone (DILAUDID) 1 mg/mL CALENDER LET OFF OPERATOR 30 mL Intravenous, CALENDER LET OFF OPERATOR ONLY, Starting on Sat02/08/14 at 1545, Until [...] Oral, EVERY 4 HOURS, First dose on Sat02/11/14 at 0745, Until Discontinued, Maximum dose of [...] EVERY 6 HOURS SCHEDULED, First dose on Sat02/11/14 at 0745, Until Discontinued, STAT 0801 (Given [...] FRACISCO) 2017 (Given - Provider: Bari Duckworth, FRACISCO) venlafaxine (EFFEXOR) tablet 37.5 mg 37.5 mg, [...] Bari Duckworth RN) HYDROmorphone (DILAUDID) 1 mg/mL CALENDER LET OFF OPERATOR 30 mL (CANCELED) Intravenous, CALENDER LET OFF OPERATOR ONLY, Starting on 02/08/14 at 1545, Until [...] MD) documented in this encounter Care Teams Manager Of Operations Relationship Specialty Start Date End Date Manolo Castro MD [address] [place] [address] PCP - General 05/14/12 04/21/17 documented as of this encounter
--- OUTSIDE RECORDS SUMMARY | 2024-06-09 09:20 | XMS_ITS | Encounter Summary ---
Author Organization [facility] [place] [address] Care Team Providers Care Auto Hiker Name Role Phone Manolo Castro MD Primary Care Provider [phone] Encounter Details Date Type Department Care Team (Late st Contact Info) Description 02/10/2014 9:44 AM EDT Anesthesia [place] [address] Blaise Almonte MD [facility] [place] [address] Anesthesia Record Procedure Summary Procedure Name Responsible [...] time, cardizem gtt running, report given to deputy attorney general. 1244 Stop Meds Name Total fentaNYL 150 [...] 0932; metacarpal vein (top of hand), left; lpgz-[id number]-owwxyf catheter system; 18 gauge, 1 in length; [...] cephalic vein (lateral side of arm), right; pfpw-akl-ndvisi catheter system; 22 gauge, 1 in length; [...] OR MULTIPLE performed by Wally Pfeiffer MDat [facility] END[facility]COPY ??? Upper gi endoscopy, diagnostic 12/25/2013 EGD, UPPER GI ENDOSCOPY performed by Wally Pfeiffer MD at [facility] ??? Lap, esophagus, other proc 02/08/2014 LAPAROSCOPIC REVISION OF DELROY FUNDOPLASTY performed by Wally Pfeiffer MD at [facility] OR ??? Lap gastric bypass/monica-en-y 02/08/2014 @LAPAROSCOPIC GASTROPLASTY, performed by Wally Pfeiffer MD at [facility] OR ??? Upper gi endoscopy, diagnostic 02/08/2014 ENDOSCOPY, UPPER GI, DIAGNOSTIC, WITH OR WITHOUT SPECIMENS performed by Wally Pfeiffer MD at [facility] MAIN OR History Substance Use Topics ??? [...] Pulmonary Assessment: Dental Assessment: - normal exam [facility] Assessment: IV access: Peripheral line Other exam [...] consented to blood products. Plan discussed with PRACTICE SPECIALIST. [facility]. Assessment: documented in this encounter Plan of [...] mg documented in this encounter Care Teams Auto Hiker Relationship Specialty Start Date End Date Manolo Castro MD [address] [place] [address] PCP - General 05/14/12 04/21/17 documented as of this encounter
--- OUTSIDE RECORDS SUMMARY | 2024-06-09 09:21 | XMS_ITS | Encounter Summary ---
[place] [address] Care Team Providers Care Manager University Name Role Phone Manolo Castro MD Primary Care Provider [phone] Encounter Details Date Type Department Care Team (Late st Contact Info) Description 02/02/2014 Orders [place] [address] Milka Barrios, RN Social History Tobacco Use [...] filedocumented in this encounter Care Teams Manager University Relationship Specialty Start Date End Date Manolo Castro MD [address] [place] [address] PCP - General 05/14/12 04/21/17 documented as of this encounter
--- OUTSIDE RECORDS SUMMARY | 2024-06-09 09:21 | XMS_ITS | Encounter Summary ---
Author Organization [facility] Address [facility] [place] [address] Care Team Providers Care Optical Goods Worker Name Role Phone Manolo Castro MD Primary Care Provider [phone] Encounter Details Date Type Department Care Team (Latest Contact Info) Description 12/23/2013 7:57 AM EDT - 12/23/2013 11:59 PM EDT Hospital Encounter [place] [id number] CLINIC, DR SHADI Pfeiffer, Wally Garcia MD [facility] [place] [address] Delayed gastric emptying; Type 2 diabetes mellitus; [...] <10%) Impression Normalgastric emptying. Wally Pfeiffer MD [facility] [place] ORDERABLES documented in this encounter Visit Diagnoses Diagnosis Delayed gastric emptying Dyspepsia and other specified disorders of function of stomach Type 2 diabetes mellitus Type II or unspecified type diabetes mellitus without mention of complication, not stated as uncontrolled GERD (gastroesophageal reflux disease) Esophageal reflux documented in this encounter Care Teams Optical Goods Worker Relationship Specialty Start Date End Date Manolo Castro MD [address] [place] [address] PCP - General 05/14/12 04/21/17 documented as of this encounter
--- OUTSIDE RECORDS SUMMARY | 2024-06-09 09:21 | XMS_ITS | Encounter Summary ---
Author Organization [facility] Address [facility] [place] [address] Care Team Providers Care Part Time Receptionist Name Role Phone Manolo Castro MD Primary Care Provider [phone] Reason for Visit * Reason Comments Other Encounter Details Date Type Department Care Team ([facility] Contact Info) Description 11/20/2013 Telephone Cardiology at [address] [address] Luis M Fong MD [facility] [address] Social History Tobacco Use Types Packs/Day Years [...] on filedocumented in this encounter Care Teams Part Time Receptionist Relationship Specialty Start Date End Date Manolo Castro MD [address] [place] [address] PCP - General 05/14/12 04/21/17 documented as of this encounter
--- OUTSIDE RECORDS SUMMARY | 2024-06-09 09:21 | XMS_ITS | Encounter Summary ---
Author Organization [facility] [place] [address] Care Team Providers Care Metal Control Coordinator Name Role Phone Manolo Castro MD Primary Care Provider [phone] Encounter Details Date Type Department Care Team (Late st Contact Info) Description 12/01/2013 1:40 PM EST Office [place] [address] Narda Allen APRN [facility] [place] [address] Wally Pfeiffer MD [facility] [place] [address] Obesity (Primary Dx) Discharge Disposition: Home Social [...] has currently had full participation in the [facility] and meets NIH criteria [...] majority of our 40 minutes today in [id number] conversation regarding various treatment options for obesity [...] unspecified documented in this encounter Care Teams Metal Control Coordinator Relationship Specialty Start Date End Date Manolo Castro MD [address] [place] [address] PCP - General 05/14/12 04/21/17 documented as of this encounter
--- OUTSIDE RECORDS SUMMARY | 2024-06-09 09:21 | XMS_ITS | Encounter Summary ---
Author Organization [facility] Address [facility] [place] [address] Care Team Providers Care Vice President Of Development Name Role Phone Manolo Castro MD Primary Care Provider [phone] Encounter Details Date Type Department Care Team (Late st Contact Info) Description 06/30/2013 Orders [place] [address] Momo Blount MD [facility] [place] [address] Left hip pain (Primary Dx) Social History [...] thigh documented in this encounter Care Teams Vice President Of Development Relationship Specialty Start Date End Date Manolo Castro MD [address] [place] [address] PCP - General 05/14/12 04/21/17 documented as of this encounter
--- OUTSIDE RECORDS SUMMARY | 2024-06-09 09:21 | XMS_ITS | Encounter Summary ---
Author Organization [facility] Address [facility] [place] [address] Care Team Providers Care Mechanical Service Specialist Name Role Phone Manolo Castro MD Primary Care Provider [phone] Encounter Details Date Type Department Care Team (Latest Contact Info) Description 11/18/2013 2:09 PM EST - 11/18/2013 11:59 PM EST Hospital Encounter Non[place] [address] CARDIO, ECHO SIXTY MIN APPT None Luis M Fong MD [facility] [place] [address] Atrial fibrillation Discharge Disposition: Home Social History [...] Transthoracic(Leb) (11/18/2013 3:14 PM EST) EF 60 HEARTMail'Inside SYSTEM Anatomical Region Laterality Modality Other 11/18/2013 Narrative 11/18/2013 3:46 PM EST Procedure: ? Transthoracic Echocardiogram Patient: ? YANIV Lopez ?(Age): 1950(62) Med Rec#: ?[id number] ? Sex: ?M ? Site Loc: ?[facility] ? Ht / Wt: ??175.3(cm)/112.4 Pt. Loc: ? Echo Lab ? BSA: ?2.26 Study Date: ?11/18/2013 ? Pt. Type: Outpatient Tape: ? Referring: Luis M Fong Twine Winder: [employer] Ice Cream Machine Operator: Milka Hope Diagnosis: ??Atrial Fibrillation (427.31) CPT Code(s): ??Echo Full (17587), ??Spectral Doppler (99113), ??Color Doppler (88005), ??Definity (36491LS), Indication(s):Rhythm: HR ?BP ?152/74 ?? SUMMARY: 1. [...] ? Mid-Inferior ?Normal ? Mid-Inferoseptal ?Normal ? [place]-Septal ? Normal ? [place]-Anterior ? Normal ? [place]-Lateral ?Normal ? [place]-Inferior ? Normal ? [place]-Tip ?Normal ? Chambers ?Value ?Units (Range) ? [...] 11/18/2013 15:45:20 Images reviewed and interpretation verified [facility] Procedure Note Moris Hargrove MD - 11/18/2013 Procedure: Transthoracic Echocardiogram Patient: YANIV LADD(Age): 1950(62) Med Rec#: [id number] Sex: M Site Loc: [facility] Ht / Wt: 175.3(cm)/112.4 Pt. Loc: Echo Lab BSA: 2.26 Study Date: 11/18/2013 Pt. Type: Outpatient Tape: Referring: Luis M Fong Twine Winder: TONY Ice Cream Machine Operator: Milka Hope Diagnosis: Atrial Fibrillation (427.31) CPT Code(s): Echo Full (18734), Spectral Doppler (36892), Color Doppler (78184), Definity (02595SQ), Indication(s):Rhythm: HR BP 152/74 SUMMARY: 1. Technically [...] Normal Mid-Posterolateral Normal Mid-Inferior Normal Mid-Inferoseptal Normal [place]-Septal Normal [place]-Anterior Normal [place]-Lateral Normal [place]-Inferior Normal [place]-Tip Normal Chambers Value Units (Range) LV EF [...] 11/18/2013 15:45:20 Images reviewed and interpretation verified [facility] Luis M Fong MD [...] mLs documented in this encounter Care Teams Mechanical Service Specialist Relationship Specialty Start Date End Date Manolo Castro MD [address] [place] [address] PCP - General 05/14/12 04/21/17 documented as of this encounter
--- OUTSIDE RECORDS SUMMARY | 2024-06-09 09:21 | XMS_ITS | Encounter Summary ---
Author Organization [facility] Address [address] [place] [address] Care Team Providers Care Director Of Compliance Name Role Phone Dominic Restrepo MD Primary Care Provider [phone] Encounter Details Date Type Department Care Team (Late st Contact Info) Description 10/11/2021 Lab Requisition [facility] Pathology & Laboratory Medicine - [address] [address] Outr Resulting Lab, Provider Social History Tobacco [...] C Antibody Negative Negative 10/12/2021 10:10 EST [facility] Blood VENOUS BLOOD / Unknown 10/11/2021 9:25 EST 10/11/2021 21:22 EST Provider Outr Resulting Lab CHEMISTRY & BLOOD GAS ORDERABLES [facility] [address] [place] [address] documented in this encounter Visit Diagnoses Not on filedocumented in this encounter Care Teams Director Of Compliance Relationship Specialty Start Date End Date Dominic Restrepo MD [address] [place] [address] PCP - General 01/20/20 documented as of this encounter
--- OUTSIDE RECORDS SUMMARY | 2024-06-09 09:21 | XMS_ITS | Encounter Summary ---
Author Organization [facility] Address [facility] [place] [address] Care Team Providers Care Screen Printing Stencil Preparer Name Role Phone Manolo Castro MD Primary Care Provider [phone] Encounter Details Date Type Department Care Team (Latest Contact Info) Description 05/14/2012 6:57 AM EDT - 05/14/2012 11:59 PM EDT Hospital Encounter XRay at [address] [place] [address] S/P knee replacement Social History Tobacco Use [...] means documented in this encounter Care Teams Screen Printing Stencil Preparer Relationship Specialty Start Date End Date Manolo Castro MD [address] [place] [id number] PCP - General 05/14/12 04/21/17 documented as of this encounter
--- OUTSIDE RECORDS SUMMARY | 2024-06-09 09:21 | XMS_ITS | Referral Summary ---
Author Organization [facility] Address [address] [place] [address] Care Team Providers Care Test Puller Name Role Phone Dominic Restrepo MD Primary Care Provider [phone] Social History Tobacco Use Types Packs/Day Years [...] Recently Relevant to Health Maintenance Results * HEPATITIS C AB W REFLEX TO HCV RNA BY PCR (10/11/2021 9:25 EST) Hep C Antibody Negative Negative 10/12/2021 10:10 EST [facility] Blood VENOUS BLOOD / Unknown 10/11/2021 9:25 EST 10/11/2021 21:22 EST Provider Outr Resulting Lab CHEMISTRY & BLOOD GAS ORDERABLES [facility] [address] [place] [address] from Last 3 Months or Most Recently Relevant to Health Maintenance Care Teams Test Puller Relationship Specialty Start Date End Date Dominic Restrepo MD [address] [place] [address] PCP - General 01/20/20
--- OUTSIDE RECORDS SUMMARY | 2024-06-09 09:21 | XMS_ITS | Encounter Summary ---
Author Organization [facility] Address [facility] [place] [address] Care Team Providers Care Mulcher Operator Name Role Phone Manolo Castro MD Primary Care Provider [phone] Encounter Details Date Type Department Care Team (Late st Contact Info) Description 12/11/2013 9:30 AM EST - 12/11/2013 10:00 AM EST [place] [address] Misty De Guzman MD [facility] [place] [address] UPPER GASTROINTESTINAL ENDOSCOPY,WITH BIOPSY SINGLE OR MULTIPLE [...] occurs, please contact your MD/ Please call [phone] before 5pm with problems, questions or concerns. After 5pm call [phone] and ask to speak with the glazing superintendent financial services education consultant. Discharge instructions reviewed with patient who expresses understanding. * Attachments The following attachments cannot be sent through Care Everywhere. * UPPER GI ENDOSCOPY: WHAT TO EXPECT AT HOME (KYRGYZ) documented in this encounter Medications at Time [...] currently had full participation in the [facility] Bariatric Surgery Program and meets NIH criteria [...] majority of our 40 minutes today in [id number] conversation regarding various treatment options for obesity [...] Surgical Pathology Report (12/11/2013 10:10 AM EST) Final Diagnosis ? [facility] ? Provider: ?? MISTY DE GUZMAN ??Pt. Name: ?? EUGENE PURVIS ? Acc #: ?[id number] ?Pt. ? Col Date: ?? 12/11/2013 ?/Sex: [...] Ronnell ? Clinical Diagnosis: ? Question Abarca's 12/15/2013 10:06 AM EDT [facility] GI Biopsy 12/11/2013 10:1 0 AM EST 12/11/2013 10:10 AM EST Misty De Guzman MD PATHOLOGY/CYTOLOGY ORDERABLES Performing Organization Address City/State/[facility] Co de Phone Number DERICK MILLENNIUM [facility] [place] [address] * Specimen to Pathology (surgical or derm) (12/11/2013 10:10 AM EST) AP Specimen 12/11/2013 10:1 0 AM EST 12/11/2013 10:10 AM EST Narrative DERICK MURPHY - 12/11/2013 10:10 AM EST Specimen requisition ordered. ??Separate Pathology report to follow Misty De Guzman MD PATHOLOGY/CYTOLOGY ORDERABLES DERICK MURPHY * UPPER GI ENDOSCOPY (12/11/2013 9:31 AM EST) UPPER GI ENDOSCOPY [facility] Endoscopy Patient Name: Eugene Purvis ? Procedure Date: 12/11/2013 9:31 AM ? N: [id number] ? Date of : 1950 ? Age: 62 ? Order #: [id number] ? Procedure: ? Upper GI endoscopy Indications: ? Preoperative assessment for bariatric ? surgery, Assessment following Ronnell ? fundoplication Providers: ? Misty De uGzman MD, Nora ? Noy, RN, Milka Baez, ? Circus Trainer Referring MD: ?Manolo Castro MD Medicines: ? [...] GENERAL SURGICAL ORD ERABLES Performing Organization Address City/[facility] Co de Phone Number [facility] * POCT Glucose (12/11/2013 8:59 AM EST) Glucose, POC 172 60 - 199 mg/dL [facility] Comment: Supplemental ranges: <110 mg/dL before meals <200 mg/dL all other times of the day Blood specimen (specimen) 12/11/2013 8:59 AM EST 12/11/2013 8:59 AM EST Misty De Guzman MD POINT OF CARE TEST ORDERABLES Performing Organization Address [facility] [address] [facility] de Phone Number [facility] documented in this encounter Visit Diagnoses Not [...] er: Nora Villafuerte RN)0952 (Given - Provider: oNra Villafuerte RN)1003 (Given - Provider: Nora Villafuerte RN) midazolam (PF) (VERSED) 1 mg/mL injection (CANCELED) ONCE PRN, Starting on Sat12/11/13 at 0946, Until Sat12/11/13 at 1103, Sleep, Intra-Operative (Intra-Procedure), Routine 0946 (Given - Provid er: Nora Villafuerte RN)0952 (Given - Provider: Nora Villafuerte RN)0955 (Given - Provider: Nora Villafuerte RN)1002 (Given - Provider: Nora Villafuerte RN) documented in this encounter Care Teams Mulcher Operator Relationship Specialty Start Date End Date Manolo Castro MD [address] [place] [address] PCP - General 05/14/12 04/21/17 documented as of this encounter
--- OUTSIDE RECORDS SUMMARY | 2024-06-09 09:21 | XMS_ITS | Encounter Summary ---
Author Organization [facility] Address [facility] [place] [address] Care Team Providers Care Crane Crew Supervisor Name Role Phone Manolo Castro MD Primary Care Provider [phone] Reason for Referral * Consultation (Routine) - Closed Specialty Diagnoses / Procedures Referred By Sonal dawson Referred To Contact Hematology and Oncology Diagnoses Morbid obesity Venous stasis Chronic anticoagulation Narda Allne UNDERGROUND ELECTRICIAN [facility] [place] [address] Darlene Barrientos MD [facility] HEMATOLOGY [place] [address] Referral ID Status Reason Start Date Expiration Date V isits Requested Visits Authorized [id number] Closed Assume Subset of Care 11/08/2013 05/07/2014 1 1 * Consultation (Routine) - Closed Specialty Diagnoses / Procedures Referred By Contac t Referred To Contact Cardiology Diagnoses Morbid obesity Hypertension Type 2 diabetes mellitus Obstructive sleep apnea (adult) (pediatric) Hyperlipidemia Chronic anticoagulation Narda Allen [facility] [place] [address] [facility] Cardiology [address] [place] [id number] Referral ID Status Reason Start Date Expiration Date V isits Requested Visits Authorized [id number] Closed Assume Subset of Care 11/08/2013 05/07/2014 1 1 Reason for Visit * Reason Comments Morbid Obesity Bariatric Surgery Pr lexi preoperative visit #1 Encounter Details Date Type Department Care Team (Latest Contact Info) Description 11/03/2013 9:00 AM EST Office [place] [address] Narda Allen UNDERGROUND ELECTRICIAN [facility] [place] [address] Morbid obesity; Hypertension; Type 2 diabetes mellitus; [...] BARIATRIC SURGERY PROGRAM FIRST VISIT Contact information: [facility] Admin coordinator Tracy: [phone] Dietitian: [phone] Surgeons/ nurse practitioner: [phone] Nurse line: [phone] Recommendations to do list after today's visit: [...] take place in the General Surgery Clinic, Petroleum Refinery Laborer Area 4L 2nd visits with dietitian and nurse practitioner ([facility]- Shared Medical Appointment) Surgical consultation Pre-op class: [...] of starch = 1 slice toast, ?? Vincentian muffin, ?? cup cooked potato, rice, or [...] in advance of approval. Only the OR organ fixer can provide you with a date. Questions for your doctor, specialist or pharmacist: Ask your doctor about medication suggestions if you currently take medications that are larger than the size of a tylenol. Large pills need to be crushed (if permitted by the drug radial arm saw operator) or taken in liquid form for TWO [...] He has attended a Introduction to the [facility] Bariatric Surgery Program seminar, a comprehensive two hour meeting that provides a program overview, education on bariatric surgeries offered at [facility], risks and benefits, as well as patient expectations and follow up, in July 2013. [facility] Bariatric Surgery Program Educational seminars viewed: 3, in September 2013. Grades on post-testin-90%. The BSP Educational Handbook is provided at visit #1. 2. Pre-operative programmatic evaluations: PCP evaluation and letter of support to proceed with surgery, BSP labwork and psychological evaluation 3. Bariatric Surgery Program evaluations with RD and DIPLOMATIC INTERPRETER: today. 4. Weight history: 195 pounds on 07/09/2002, 218 pounds on 09/06/05, 246 pounds on 09/06/08, 246 pounds on 08/14/10, 257 pounds on 08/19/13, 255 pounds on 07/10/13. Current weight: 257 pounds HT 68.8 in 5. Gallbladder status: Believed to be intact, per patient, although notes from PCP indicate prior cholecystectomy 6. Insurer specific requirements: Medicare part A, CIGN and [employer]- 3 months of supervised counseling 7. BSP Team meeting discussion: Indication: age >60 8. Next steps in pathway: ?? Additional testing/ consultations as determined as needed to be determined at today's visit. ?? If all [facility] requirements and testing have been completed: [...] weight loss have been unsuccessful in the functional consultant. Refer to nutrition note by [facility] dietitian for weight and dieting history, 24 hour dietary intake and recent dietary changes. Motivating factors for seeking surgery for bariatric surgery: see RD note Patient research in addition to attendance at [facility] Bariatric Surgery Informational meeting and online Educational [...] circular mesh (11.4 cm in diameter) at [facility] 10/15/2012 ??? Vasectomy ??? Right carpal tunnel [...] 2. Psychological evaluation done by Michael Hayes [facility] following sessions on 07/30 and 09/07/13:no contraindication [...] Residence/ marital status:Eugene is , lives in [place], [place]. His youngest son, who is disabled, lives with him. He has 2 other adult sons and one grandson named Chandana who lives in [place]. Plans for post-operative support: son Support persons viewed information on bariatric surgery: no Education/ Occupation: HS school, and some college. 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 Hobbies/Activities: swimming at [employer] over the winter months, fishing, going to [...] chest pain, squeezing, pressure [] history of [place], previous PCI/ PTCA, cardiac surgery [] VTE, [...] of treatment of obesity and of the [facility] Bariatric Surgery Program: Mr.. Purvis is aware that other treatments for obesity are available, ie, dietary, behavior modification, weight loss medications, exercise as well as surgical weight loss methods. The risks and benefits of bariatric surgery, including gastric bypass, adjustable gastric banding and sleeve gastrectomy are discussed at every Introduction to the [facility] Bariatric Surgery Program meeting and all Educational Seminars, and will be reviewed in detail at the second pre- operative visit. The importance of incorporating lifestyle activity and regular exercise, such as walking, or swimming, after discussion and approval by his primary home care chaplain, prior to surgery, as well as post-operatively, was stressed. He is aware of our programmatic approach which includes four bariatric surgeons, as well as a dietitian and nurse practitioner. Mandatory requirements include: 1. attendance at a two hour Introduction to the [facility] Bariatric Surgery Program seminar 2. view 3 [...] thoroughly research bariatric surgery, via the internet, the[facility] website at [email or web address], books, and journals. In addition, information on bariatric surgery is available at the [employer] [facility] at [facility]. Assessment/ Plan: 62 y.o. year old male [...] psychological evaluation. Information given to patient: 1. [facility] Bariatric Surgery Education Handbook, a 102 page document (revision July 2013) which contains extensive information regarding pre and post- operative care including: a copy of the Patient Agreement, illustrations of GI anatomy and gastric bypass, gastric banding and sleeve gastrectomy surgeries, [facility] Rehab Medicine recommendations and exercises prior to [...] encouraged - 2nd visits with RD and DIPLOMATIC INTERPRETER Questions regarding [facility] Bariatric Surgery Program patients: please call Shayy Allen APRN at [phone] or [phone] beeper [phone][address] * Rowan Deutsch RD - 11/02/2013 9:27 AM EST Bariatric Surgery Program Initial Nutrition Assessment SUBJECTIVE -Checks BG every other day, usually before lunch, range ~100mg/dl. Reports most recent A1c at 6.5%. Eugene Jessica Purvis is being seen today for a [...] states. Biggest support is his son Momo. maritime officer driver helper for [employer]- works 5pm-10pm. Motivating Factors for Seeking Weight Loss Surgery: ?? [x] Improved Health ?? [ ] functional consultant weight loss ?? [x] Improved quality of [...] weekend went to gym and pool at [facility] near his home- may ultimately get a membership. Dieting History: Type of Diet Wt Lost (lbs.) Wt. Regain (lbs.) Dates Duration Comments Atkins 0 0 Early 1989's Can't remember [place] 10 12 1979's 3 months Health Coaching 9 0 2012 For past 12 months, currently following Via [facility] nurse that calls once a month- sets [...] ] Other: ?? [x] None Summary Eugene Ninosachinigel has been referred for nutrition evaluation and diet instruction in anticipation of bariatric surgery. Previous conservative attempts at weight loss through dieting have been unsuccessful over the functional consultant. Patient has made lifestyle changes since attending [...] of starch = 1 slice toast; ?? Vincentian muffin; 1 small vianey or wrap; ?? [...] for iron deficiency anemia COMPREHENSIVE METABOLIC PANEL Routine 11/03/2013 10:21 AM EST Morbid obesity [...] surgery, s/p paraesophagal hernia repair and Afsaneh [id number]. Check integrity of wrap and evaluate for [...] Free T4 0.72(L) 0.90 - 1.60 ng/dL CERNER [employer] HoldingsENNIUM Blood specimen (specimen) 11/03/2013 10:21 AM EST 11/03/2013 10:37 AM EST Narrative Resulting Agency Comment Spec In Lab Wally Pfeiffer MD CHEMISTRY ORDERABLE S Performing Organization Address [facility] Co de Phone Number Nugg-itIUM * T Uptake (11/03/2013 10:21 AM EST) T Uptake 1.16 0.80 - 1.30 ratio CERNER MILLENNIUM Comment: Tup assay is directly proportional to Thyroid binding protein concentration, thus FT4 Index = TT4/Tup. Blood specimen (specimen) 11/03/2013 10:21 AM EST 11/03/2013 10:37 AM EST Narrative Resulting Agency Comment Spec In Lab Wally Pfeiffer MD CHEMISTRY ORDERABLE S Performing Organization Address City/[facility]/ZIP Co de Phone Number Nugg-itIUM * Gamma GT (11/03/2013 10:21 AM EST) Gamma Glutamyl Transferase 27 8 - 61 unit/L CERWALDO MILLENNIUM Blood specimen (specimen) 11/03/2013 10:21 AM EST 11/03/2013 10:28 AM EST Narrative Resulting Agency Comment Spec In Lab Wally Pfeiffer MD CHEMISTRY ORDERABLE S Performing Organization Address City/[facility]/ZIP Co de Phone Number DERICK KRAFTIUM * (ABNORMAL) TSH (11/03/2013 10:21 AM EST) Thyroid Stimulating Hormone 4.30(H) 0.27 - 4.20 mcIU/mL DERICK KRAFTIUM Blood specimen (specimen) 11/03/2013 10:21 AM EST 11/03/2013 10:28 AM EST Narrative Resulting Agency Comment Spec In Lab Wally Pfeiffer MD CHEMISTRY ORDERABLE S Performing Organization Address [facility] de Phone Number DERICK KRAFTIUM * Uric acid (11/03/2013 10:21 AM EST) Uric Acid 6.3 3.5 - 8.5 mg/dL DERICK KRAFTIUM Blood specimen (specimen) 11/03/2013 10:21 AM EST 11/03/2013 10:28 AM EST Narrative Resulting Agency Comment Spec In Lab Wally Pfeiffer MD CHEMISTRY ORDERABLE S Performing Organization Address City/[facility] Co de Phone Number DERICK KRAFTIUM * Folate, serum (11/03/2013 10:21 AM EST) Folate 12.3 4.6 - 34.8 ng/mL DERICK KRAFTIUM Blood specimen (specimen) 11/03/2013 10:21 AM EST 11/03/2013 10:28 AM EST Narrative Resulting Agency Comment Spec In Lab Wally Pfeiffer MD CHEMISTRY ORDERABLE S Performing Organization Address City/[facility] Co de Phone Number DERICK KRAFTIUM * Vitamin B12 (11/03/2013 10:21 AM EST) Vitamin B12 701 207 - 974 pg/mL [facility] Blood specimen (specimen) 11/03/2013 10:21 AM EST 11/03/2013 10:28 AM EST Narrative Resulting Agency Comment Spec In Lab Wally Pfeiffer MD CHEMISTRY ORDERABLE S Performing Organization Address [facility]/State/ZIP Co de Phone Number [facility] * VIT D Total Evaluation (11/03/2013 10:21 AM EST) Vitamin D Total 25 OH 46 30 - 100 ng/mL [facility] Comment: Deficient <10 ng/mL Insufficient 10 to [...] MD CHEMISTRY ORDERABLE S Performing Organization Address [facility]/ZIP Co de Phone Number [facility] * PTH (11/03/2013 10:21 AM EST) Parathyroid Hormone 40 15 - 65 pg/mL [facility] Blood specimen (specimen) 11/03/2013 10:21 AM EST 11/03/2013 10:28 AM EST Narrative Resulting Agency Comment Spec In Lab Wally Pfeiffer MD CHEMISTRY ORDERABLE S Performing Organization Address [facility]/State/ZIP Co de Phone Number CERNER JEFFREYENNIUM * Vitamin A (11/03/2013 10:21 AM EST) Vitamin A (FEBRUARY) 49.8 32.5 - 78.0 mcg/dL CERNER MILLENNIUM Comment: Test Performed by: [place] [address] Waitstaff Captain: Bronwyn Seals, Ph.D. Blood specimen (specimen) 11/03/2013 10:21 AM EST 11/03/2013 11:28 AM EST Narrative Resulting Agency Comment Spec In Lab Wally Pfeiffer MD LAB SEND OUT ORDERA BLES Performing Organization Address [facility] Co de Phone Number CERWALDO MURPHYENNIUM * Ferritin (11/03/2013 10:21 AM EST) Ferritin 118 30 - 400 ng/mL CERNER MILLENNIUM Comment: Pediatric reference ranges not verified at [facility], interpret with caution. Reference ranges for females greater than 50 years of age approach values for men, i.e., 30-400 ng/mL. Blood specimen (specimen) 11/03/2013 10:21 AM EST 11/03/2013 10:28 AM EST Narrative Resulting Agency Comment Spec In Lab Wally Pfeiffer MD CHEMISTRY ORDERABLE S Performing Organization Address [facility]/ZIP Co de Phone Number CERWALDO MURPHYENNIUM * Iron and TIBC (11/03/2013 10:21 AM EST) Iron 67 45 - 160 mcg/dL CERNER MILLENNIUM TIBC 311 250 - 450 mcg/dL CERNER MILLENNIUM Iron Saturation 22 20 - 50 % CERN ER MILLENNIUM Blood specimen (specimen) 11/03/2013 10:21 AM EST 11/03/2013 10:28 AM EST Narrative Resulting Agency Comment Spec In Lab Wally Pfeiffer MD CHEMISTRY ORDERABLE S CERNER MILLENNIUM * (ABNORMAL) Hemoglobin A1c (11/03/2013 10:21 AM EST) [facility] Signature Hemoglobin A1c 7.9(H) <=5.6 % PRIYANKA Dipak [facility] Comment: As of 2013 the methodology for [...] Mellitus, Diabetes Care 2013; 36: Suppl. 1, S67-32 Estimated Average Glucose 180 mg/dL DERICK [facility] Comment: eAG equivalents for HbA1c percentages: [...] into estimated average glucose values. ??Diabetes Care 2008:31(8):0824-0575. Blood specimen (specimen) 11/03/2013 10:21 AM EST 11/03/2013 10:28 AM EST Narrative Resulting Agency Comment Spec In Lab Wally Pfeiffer MD CHEMISTRY ORDERABLE S [facility] * Comprehensive metabolic panel (non-fasting) (11/03/2013 10:21 AM EST) Glucose 155 60 - 199 mg/dL CERNER MILLENNIUM Comment:Diabetes: >=200 mg/d L plus symptoms Blood Urea Nitrogen 19 10 - 20 mg/dL CERNER MILLENNIUM [...] 9.5 8.5 - 10.5 mg/dL CERNER MILLENNIUM Protein, Total 6.8 6.4 - 8.3 gm/dL CERNER MILLENNIUM Albumin 4.3 3.2 - 5.2 gm/dL CERNER MILLENNIUM Aspartate Aminotransferase 18 0 - 39 unit/L CERNER MILLENNIUM Alanine Aminotransferase 22 0 - 55 unit/L CERNER MILLENNIUM Alkaline Phosphatase 51 40 - 120 unit/L CERNER MILLENNIUM Bilirubin, Total 0.5 0.2 - 1.3 mg/dL CERNER MILLENNIUM Bilirubin, Direct 0.1 0.0 - 0.3 mg/dL CERNER MILLENNIUM Est Glomerular Filtration Rate [...] Lab Wally Pfeiffer MD CHEMISTRY ORDERABLE S CERWALDO MURPHYENNIUM * (ABNORMAL) Hemogram (11/03/2013 10:21 AM EST) White Blood Cell 8.0 4.0 - 10.0 x10(3)/mc L CERNER MILLENNIUM Red Blood Cell 4.58(L) 4.63 - 6.08 x10(6)/mc L CERNER MILLENNIUM Hemoglobin 13.2(L) 13.7 - 17.5 gm/dL CERNER MILLENNIUM Hematocrit 39.1(L) 40.0 - 51.0 % CERNER MILLENNIUM Mean Cell Volume 85.4 79.0 - 92.0 fL CERNER MILLENNIUM Mean Cell Hemoglobin 28.8 25.6 - 32.2 pg CERNER MILLENNIUM Mean Cell Hemoglobin Concentration 33.8 32.0 - 36.5 gm/dL CERNER MILLENNIUM Platelet 199 145 - 370 x10(3)/mc L CERNER MILLENNIUM RDW Standard Deviation 43.3 35.0 - 46.0 fL CERNER MILLENNIUM RDW coefficient of variation 14.0 10.9 - 14.4 % CERNER MILLENNIUM Mean Platelet Volume 9.2 9.0 - 12.0 fL CERNER MILLENNIUM Blood specimen (specimen) 11/03/2013 10:21 [...] surgery documented in this encounter Care Teams Crane Crew Supervisor Relationship Specialty Start Date End Date Manolo Castro MD [address] [place] [id number] PCP - General 05/14/12 04/21/17 documented as of this encounter
--- OUTSIDE RECORDS SUMMARY | 2024-06-09 09:21 | XMS_ITS | Encounter Summary ---
Author Organization [facility] Address [facility] [place] [address] Care Team Providers Care Templer Head Name Role Phone Manolo Castro MD Primary Care Provider [phone] Encounter Details Date Type Department Care Team (Late st Contact Info) Description 11/18/2013 1:10 PM EST Office Visit Cardiology at [address] [phone] Luis M Fong MD 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 He takes the [employer] [facility] to the [place]. He walks about 1 mile two [...] ? YANIV Lopez ?(Age): 1950(62) Med Rec#: ?[id number] ? Sex: ?M ? Site Loc: [facility] ? Ht / Wt: ??175.3(cm)/112.4 Pt. Loc: ? Echo Lab ? BSA: ?2.26 Study Date: ?11/18/2013 ? Pt. Type: Outpatient Tape: ? Referring: Luis M Fong Supply Analyst: [employer] Advisor: Milka Hope Diagnosis: ??Atrial Fibrillation (427.31) CPT Code(s): ??Echo Full (03200), ??Spectral Doppler (88758), ??Color Doppler (29477), ??Definity (25992ZW), Indication(s):Rhythm: HR ?BP ?152/74 ?? SUMMARY: 1. [...] ? Mid-Inferior ?Normal ? Mid-Inferoseptal ?Normal ? [place]-Septal ? Normal ? [place]-Anterior ? Normal ? [place]-Lateral ?Normal ? [place]-Inferior ? Normal ? [place]-Tip ?Normal ? Chambers ?Value ?Units (Range) ? [...] 11/18/2013 15:45:20 Images reviewed and interpretation verified [facility] Cardiac Ultrasound Laboratory Procedure Note Moris Hargrove MD - 11/18/2013 Procedure: Transthoracic Echocardiogram Patient: YANIV LADD(Age): 1950(62) Med Rec#: [id number] Sex: M Site Loc: [facility] Ht / Wt: 175.3(cm)/112.4 Pt. Loc: Echo Lab BSA: 2.26 Study Date: 11/18/2013 Pt. Type: Outpatient Tape: Referring: Luis M Fong Supply Analyst: [employer] Advisor: Milka Hope Diagnosis: Atrial Fibrillation (427.31) CPT Code(s): Echo Full (01504), Spectral Doppler (91239), Color Doppler (50123), Definity ([id number]), Indication(s):Rhythm: HR BP 152/74 SUMMARY: 1. Technically [...] Normal Mid-Posterolateral Normal Mid-Inferior Normal Mid-Inferoseptal Normal [place]-Septal Normal [place]-Anterior Normal [place]-Lateral Normal [place]-Inferior Normal [place]-Tip Normal Chambers Value Units (Range) LV EF [...] 11/18/2013 15:45:20 Images reviewed and interpretation verified [facility] Cardiac Ultrasound Laboratory Luis M Fong MD ECHO ORDERABLES * EKG 12 Lead (11/18/2013 1:19 PM EST) Ventricular rate 103 BPM MUSE SYSTEM Atrial Rate 131 BPM MUSE SYSTEM QRS Duration 86 ms MUSE SYSTEM Q-T Interval 306 ms MUSE SYSTEM QTC Calculated (Bezet) 400 ms MUSE SYSTEM Calculated R [place] 67 degrees MUSE SYSTEM Calculated T [place] 13 degrees MUSE SYSTEM INTERPRETATION Atrial fibrillation Low voltage QRS Abnormal ECG When compared with ECG of 09-JUL-2002 08:57, Atrial fibrillation has replaced Sinus rhythm Vent. rate has increased BY ??34 BPM Nonspecific T wave abnormality now evident in Inferior leads I personally reviewed the tracing and edited the fellows interpretation Confirmed by fellow MD Wilbert, Jose Francisco Lucas ([id number]) on 11/19/2013 9:00:46 AM Confirmed by MD Tho, Sj ([id number]) on 11/19/2013 1:43:46 PM MUSE SYSTEM 11/18/2013 1:19 PM EST 11/19/2013 1:43 PM EST Luis M Fong MD ECG ORDERABLES MUSE SYSTEM documented in this encounter Visit Diagnoses Diagnosis Atrial fibrillation- Primary Atrial fibrillation documented in this encounter Care Teams Templer Head Relationship Specialty Start Date End Date Manolo Castro MD [address] [place] [address] PCP - General 05/14/12 04/21/17 documented as of this encounter
--- OUTSIDE RECORDS SUMMARY | 2024-06-09 09:21 | XMS_ITS | Encounter Summary ---
Author Organization [facility] [place] [address] Care Team Providers Care Laundry Machine Operator Name Role Phone Manolo Castro MD Primary Care Provider [phone] Reason for Visit * Reason Comments Obesity Bariatric Surgery Pr lexi preoperative visit #2 Encounter Details Date Type Department Care Team (Latest Contact Info) Description 12/01/2013 11:00 AM EST Office Visit [place] [address] Narda Allen, [facility] [place] [address] Hypertension; Type 2 diabetes mellitus; Obstructive sleep [...] SURGERY PROGRAM SECOND VISIT Contact information: [facility] Admin coordinator Tracy: [phone] Dietitian: [phone] Surgeons/ nurse practitioner: [phone] Nurse line: [phone] 1. Pending information: none BRIDGING PROTOCOL TO BEGIN 5 DAYS PRIOR TO PROCEDURE per custom home installer Day Treatment -5 Last warfarin dose -4 [...] ask for an estimate. Only the OR stamps or coins salesperson can provide you with a date AFTER APPROVAL by your insurer. Some insurers, such as [employer] and [employer], approve quickly so you can likely get the OR date on the day you have a surgeon visit Pre-op Class: Tracy will schedule, pending your OR date. Prepare for the Pre-op Class by doing the followin. Review the program handbook and come to class with a list of questions. 2. Watch the videos on shopping, meal planning and emotional eating on the [facility] website under Bariatric Surgery ([email or web address]). 3. Go to [employer] practice solutions and review the education materials ([email or web address]). 4. Come prepared to the class to [...] be crushed (if permitted by the drug rate clerk passenger) or taken in liquid form for TWO [...] through dieting have been unsuccessful over the hazardous waste material technician. Advised patient that bariatric surgery is a [...] He has attended a Introduction to the [facility] Bariatric Surgery Program seminar, a comprehensive two hour meeting that provides a program overview, education on bariatric surgeries offered at [facility], risks and benefits, as well as patient expectations and follow up, in July 2013. [facility] Bariatric Surgery Program Educational seminars viewed: 3, in September 2013. Grades on post-testin-90%. The [facility] Educational Handbook is provided at visit #1. 2. Pre-operative programmatic evaluations: PCP evaluation and letter of support to proceed with surgery, [facility] labwork and psychological evaluation 3. Bariatric Surgery Program evaluations with RD and HAZARDOUS MATERIALS WASTE TECHNICIAN: 11/03/13 and today. 4. Weight history: 195 [...] specific requirements: Medicare part A, [employer] and [place]- 3 months of supervised counseling 7. [facility] [...] 2 hour class taught by the Bariatric HAZARDOUS MATERIALS WASTE TECHNICIAN and RD will be scheduled ?? During [...] circular mesh (11.4 cm in diameter) at [facility] 10/15/2012 ??? Vasectomy ??? Right carpal [...] 98.00%. Discussion of bariatric surgeries performed at [facility], risks and benefits, and the [facility] Bariatric Surgery Program requirements: The risks of immediate and long-term complications as well as the benefits of [...] again emphasized. The need for commitment to hazardous waste material technician lifestyle changes, with healthy diet and regular physical activity was stressed to achieve and sustain hazardous waste material technician weight loss. Benefits of bariatric surgery discussed: [...] since banding surgery is not offered at [facility] due to unacceptably high complication rates reported [...] Rueda has met the requirements of the [facility] Bariatric Surgery Program, and has an appointmenttoday for surgical consultation. He was encouraged to call with any questions or concerns. Data reviewed: Visit #2 questionnaire Barium swallow Cardiology evaluation Rehab med evaluation Thrombosis clinic evaluation Information reviewed with patient: 1. [facility] Bariatric Surgery Program Educational Handbook, bariatric surgery patient agreement and risks and benefits of gastric bypass, sleeve gastrectomy and adjustable gastric banding surgery reviewed in detail. Pending/ other: - Copy of note from Dr. Castro regarding plan forTSH elevation - Ongoing weight loss encouraged Time spent in counseling: Individual planning and coordination of care: 5 minutes Group counselin minutes Questions regarding [facility] Bariatric Surgery Program patients: please call Shayy Allen APRN at [phone] or [phone] beeper [phone]. documented in this encounter Plan of Treatment Not on file documented as of this encounter Visit Diagnoses Diagnosis Hypertension Unspecified essential hypertension Type 2 diabetes mellitus Type II or unspecified type diabetes mellitus without mention of complication, not stated as uncontrolled Obstructive sleep apnea (adult) (pediatric) Chronic anticoagulation Encounter for long-term (current) use of anticoagulants documented in this encounter Care Teams Laundry Machine Operator Relationship Specialty Start Date End Date Manolo Castro MD [address] [place] [address] PCP - General 05/14/12 04/21/17 documented as of this encounter
--- OUTSIDE RECORDS SUMMARY | 2024-06-09 09:21 | XMS_ITS | Encounter Summary ---
Author Organization [facility] [place] [address] Care Team Providers Care Backup Administrator Name Role Phone Manolo Castro MD Primary Care Provider [phone] Encounter Details Date Type Department Care Team (Late st Contact Info) Description 02/08/2014 10:28 AM EDT - 02/08/2014 3:56 PM EDT Surgery [place] [address] Misty De Guzman MD [facility] [place] [address] LAPAROSCOPIC REVISION OF DELROY FUNDOPLASTY (WRVU 48.75) [...] EDT BARIATRIC SURGERY DISCHARGE INFORMATION CONTACT INFORMATION: [phone] Surgeons: Dr. Mratinez, Margarette Hanna and [place] [phone] Site Monitor: [phone] (Saturday through Saturday, 8:00 AM -5:00 PM) Dietitian: [phone] Non-business hours: [phone], ask for general surgeon distribution center assistant FOR EMERGENCIES: CALL 911 (trouble breathing, chest [...] had open gastric bypass and have kellie: [place] should be removed 10 - 12 days after surgery. This can be done at [facility] or via Primary Care [...] 200 on more than 3 rechecks, [facility] or diabetic specialist for specific [...] Follow up with primary care doctor or guest specialist in 1-2 weeks. Bring meter to [...] Provider Department Center 03/02/2014 3:00 PM Bariatric, Chain Carrier Tor Surg [facility] 03/02/2014 3:40 PM Mitsy De Guzman MD Leb Surg [facility] [...] 10:09 AM EDT Care Management/ CRC Pager# [phone]/ Assessment and Initial discharge planning S: I [...] insurance. [facility] Patient is POD# 3 [...] q4hr prn. 99% on 2liters oxygen via bessemer regulator this morning. A: Patient progressing post-op. Patient [...] is stable and Pain well controlled DC OIL AND GAS EXPLORATION TECHNICIAN and start Oxycodone liquid for pain controll [...] 3:54 PM EDT General Surgery Post-Operative Note uEgene Rueda is a 63 y.o. male is [...] Office of Care Management (OCM) / Clinical Special Education Itinerant Teacher (CRC)/ Initial Assessment Discussed patient with Provider Team and in multidisciplinary discharge-planning rounds. Reviewed record; patient off unit for procedure. Introduced/reviewed CRC role and services accepted. 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 Blood disorder ??? Circulatory disease ??? 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 PRIMARY CARE PHYSICIAN: MANOLO CASTRO MD [address] / [facility] [address] POTENTIAL DISCHARGE NEEDS: none anticipated PATIENT/FAMILY EDUCATION NEEDS:per discharge summary ANTICIPATED BARRIERS TO DISCHARGE:none TRANSPORTATION @ D/C: PLAN: CRC will continue to monitor progress, follow for continuity of care and assist with discharge planning while hospitalized KENYATTA SANDS RN CRC for Melba Elmore RN CRC pager [phone] . * Ricky Trotter MD - 02/09/2014 [...] pain and nausea at this time. Using OIL AND GAS EXPLORATION TECHNICIAN appropriately, patient very drowsy but easily woken. Lap sites CDI. HR irreg. Will continue to monitor. * Radha Sanchez RN - 02/08/2014 4:49 PM EDT Report to Claire 4w. Pt sleepy, easily arousable. States he is comfortable. 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 documented in this encounter H&P [...] full participation in the [facility] Bariatric Surgery Program and [...] majority of our 40 minutes today in [id number] conversation regarding various treatment options for obesity [...] 02/13/2014 12:56 PM EDTAssociated Order(s): SCAN DOC: SPRING TIER documented in this encounter Miscellaneous Notes * [...] part of your care. Bariatric Surgery - [phone]: Follow-up with Dr. De Guzman PCP: MANOLO CASTRO MD, . Please follow-up with your PCP in 1-2 weeks or sooner as needed. Scheduled Appointments: The following appointments have been scheduled on your behalf: Future Appointments and Orders Future Appointments: Provider: Department: Dept Phone: Center: 03/02/2014 3:00 PM Chain Carrier Bariatric General Surgery [phone] [facility] 03/02/2014 3:40 PM Misty De Guzman MD General Surgery [phone] [facility] Outpatient Services/Studies: No discharge procedures on file. Instructions Given to Patient at Discharge: Provider Instructions BARIATRIC SURGERY DISCHARGE INFORMATION CONTACT INFORMATION: [phone] Surgeons: Cyndi Lujan Laycock and [facility] [phone] Site Monitor: [phone] (Saturday through Saturday, 8:00 AM -5:00 PM) Dietitian: [phone] Non-business hours: [phone], ask for general surgeon distribution center assistant FOR EMERGENCIES: CALL 911 (trouble breathing, chest [...] after surgery. This can be done at [facility] or via Primary Care [...] 200 on more than 3 rechecks, call [facility] physician or diabetic specialist for [...] Follow up with primary care doctor or guest specialist in 1-2 weeks. Bring meter to [...] Provider Department Center 03/02/2014 3:00 PM Bariatric, Chain Carrier Leb Surg [facility] 03/02/2014 3:40 PM Misty De Guzman MD Leb Surg [facility] General Instructions None Future Appointments and Orders Future Appointments: Provider: Department: Dept Phone: Center: 03/02/2014 3:00 PM Chain Carrier Bariatric General Surgery [phone] [facility] 03/02/2014 3:40 PM Misty De Guzman MD General Surgery [phone] [facility] Call your doctor if: Please [...] managed by the Bariatric Surgery Team at [facility]. If you have any questions or concerns, please feel free to contact us. Provider Contact Information: General Surgery Clinic: [facility] (after business hours): CC: [...] flowsheet for pain assessment. Pt with Dilaudid OIL AND GAS EXPLORATION TECHNICIAN 0.3/15/5 pt understands use, not utilized overnight. [...] pain. Pt stating good relief with Dilaudid OIL AND GAS EXPLORATION TECHNICIAN. Pt reporting no nausea,SOB or chest pain. Assessment as documented. Will continue to monitor. * Op Note - Misty De Guzman MD - 02/10/2014 2:56 PM EDT [facility] Operative Note Patient Name: Eugene Rueda : [id number] MR#: [id number] Case Date: 02/10/2014 Surgeon: Surgeon(s) and Role: * Misty De Guzman MD - Primary * Ricky Trotter MD - Resident-Customer Operations Intern * Homero Hernandez MD - [facility] Preoperative diagnosis: post-op bleeding s/p rnygb Postoperative [...] Operative Note Patient Name: Eugene Rueda : [id number] MR#: [id number] Case Date: 02/10/2014 Surgeon: Surgeon(s) and Role: * Misty De Guzman MD - Primary * Ricky Trotter MD - Resident-Customer Operations Intern * Homero Hernandez MD - Resident-Customer Operations Intern Preoperative diagnosis: post-op bleeding s/p rnygb Postoperative [...] MD 02/10/2014 * Brief Op Note - Rikcy Trotter MD - 02/10/2014 12:28 PM EDT Brief Operative Note Patient Name: Eugene Rueda : [id number] MR#: [id number] Case Date: 02/10/2014 Surgeon: Surgeon(s) and Role: * Misty De Guzman MD - Primary * Ricky Trotter MD - Resident-Customer Operations Intern * Homero Hernandez MD - Resident-Customer Operations Intern Preoperative diagnosis: post-op bleeding s/p rnygb Postoperative diagnosis: post-op bleeding s/p rnygb Procedure(s): LAPAROSCOPY, DIAGNOSTIC, ABDOMEN Anesthesia: General Findings: dense clot under liver and diaphragm, no site of active bleeding Complications: none Fluids: 1300cc Estimated Blood Loss: 500cc Drains: 10 Czech MONICA drain Disposition: awakened from anesthesia, extubated [...] Operative Note Patient Name: Eugene Rueda : [id number] MR#: [id number] Case Date: 02/08/2014 Surgeon: Surgeon(s) and Role: [...] Guzman MD - 02/08/2014 9:37 AM EDT [facility] Operative Note Patient Name: Eugene Rueda : [id number] MR#: [id number] Case Date: 02/08/2014 Surgeon: Surgeon(s) and Role: [...] engaged with the bariatric surgery program at [facility]. He has multiple weight-related comorbidities, he meets NIH criteria for weight loss surgery, and he has had full participation in the [facility] bariatric surgery program. Following [...] posteriorly and encircle the esophagus with a Aguilar drain. This was held in place using [...] all other items from the esophagus. The [place] 60 blue load was angled horizontally at [...] and the small-bowel serosa, and using an [place] 60 with a white load the jejunum [...] fashioned using a single firing of the [place] 60 with a white load. That enterotomy [...] limb, and a partial firing of the [place] 60 blue load at 30 mm was formed for the gastrojejunostomy. A 30-Czech bougie was then passed by Anesthesia down [...] Procedure Name Priority Date/Time Associated Diagnosis Comments SPRING TIER SCAN 02/13/2014 12:56 PM EDT POCT GLUCOSE [...] 02/09/2014 5:05 PM EDT TYPE AND SCREEN ([facility]GAR) STAT 02/09/2014 5:05 PM EDT BASIC METABOLIC [...] in this encounter Results * SCAN DOC: SPRING TIER (02/13/2014 12:56 PM EDT) Anatomical Region Laterality Modality Other Narrative 02/13/2014 1:14 PM EDT Procedure Note Provider, Scanning - 02/13/2014 12:56 PM EDT Scanning Provider MEDIA MGR SCAN EXT O RDR/RSLT * POCT Glucose (02/12/2014 12:09 PM EDT) Glucose, POC 145 60 - 199 mg/dL CERNER MILLENNIUM Comment: Supplemental ranges: <110 mg/dL before meals <200 mg/dL all other times of the day Blood specimen (specimen) 02/12/2014 12:09 PM EDT 02/12/2014 12:09 PM EDT Misty De Guzman MD POINT OF CARE TEST ORDERABLES DERICK KRAFTIUM * POCT Glucose (02/12/2014 7:04 AM EDT) Glucose, POC 134 60 - 199 mg/dL [facility] Comment: Supplemental ranges: <110 mg/dL before meals <200 mg/dL all other times of the day Blood specimen (specimen) 02/12/2014 7:04 AM EDT 02/12/2014 7:04 AM EDT Misty De Guzman MD POINT OF CARE TEST ORDERABLES DERICK KRAFTIUM * (ABNORMAL) Differential, Automated (02/12/2014 5:32 AM EDT) Neutrophil % 70.2 34.0 - 71.0 % BANNERNER MILLENNIUM Neutrophil Absolute 5.11 1.50 - 6.30 [...] Misty De Guzman MD HEMATOLOGY ORDERABL ES [facility] * (ABNORMAL) Basic Metabolic Panel (non-fasting) (02/12/2014 5:32 AM EDT) [facility] Glucose 131 60 - 199 mg/dL CERNER MILLENNIUM Comment:Diabetes: >=200 mg/d L plus symptoms Blood Urea Nitrogen 16 10 - 20 mg/dL CERNER MILLENNIUM Creatinine 0.67(L) 0.80 - 1.50 mg/dL CERNER MILLENNIUM Comment: Please note that the pediatric reference intervals supplied above were not validated at [facility]. Results from pediatric patients [...] Platelet Volume 9.3 9.0 - 12.0 fL [facility] Blood specimen (specimen) 02/12/2014 5:32 AM EDT 02/12/2014 5:58 AM EDT Narrative Resulting Agency Comment Spec In Lab Misty De Guzman MD HEMATOLOGY ORDERABL ES Performing Organization Address [facility] Phone Number [facility] * POCT Glucose (02/12/2014 3:50 AM EDT) Glucose, POC 123 60 - 199 mg/dL [facility] Comment: Supplemental ranges: <110 mg/dL before meals <200 mg/dL all other times of the day Blood specimen (specimen) 02/12/2014 3:50 AM EDT 02/12/2014 3:50 AM EDT Misty De Guzman MD POINT OF CARE TEST ORDERABLES Performing Organization Address [facility] Phone Number [facility] * POCT Glucose (02/11/2014 11:26 PM EDT) Glucose, POC 178 60 - 199 mg/dL [facility] Comment: Supplemental ranges: <110 mg/dL before meals <200 mg/dL all other times of the day Blood specimen (specimen) 02/11/2014 11:26 PM EDT 02/11/2014 11:26 PM EDT Misty De Guzman MD POINT OF CARE TEST ORDERABLES Performing Organization Address [facility] Phone Number [facility] * POCT Glucose (02/11/2014 7:20 PM EDT) Glucose, POC 140 60 - 199 mg/dL [facility] Comment: Supplemental ranges: <110 mg/dL before meals <200 mg/dL all other times of the day Blood specimen (specimen) 02/11/2014 7:20 PM EDT 02/11/2014 7:20 PM EDT Misty De Guzman MD POINT OF CARE TEST ORDERABLES Performing Organization Address [facility] Co de Phone Number [facility] * POCT Glucose (02/11/2014 4:15 PM EDT) Glucose, POC 149 60 - 199 mg/dL [facility] Comment: Supplemental ranges: <110 mg/dL before meals <200 mg/dL all other times of the day Blood specimen (specimen) 02/11/2014 4:15 PM EDT 02/11/2014 4:15 PM EDT Misty De Guzman MD POINT OF CARE TEST ORDERABLES Performing Organization Address [facility] Phone Number [facility] * POCT Glucose (02/11/2014 11:45 AM EDT) Glucose, POC 157 60 - 199 mg/dL [facility] Comment: Supplemental ranges: <110 mg/dL before meals <200 mg/dL all other times of the day Blood specimen (specimen) 02/11/2014 11:45 AM EDT 02/11/2014 11:45 AM EDT Misty De Guzman MD POINT OF CARE TEST ORDERABLES Performing Organization Address [facility] de Phone Number [facility] * POCT Glucose (02/11/2014 6:56 AM EDT) Glucose, POC 158 60 - 199 mg/dL [facility] Comment: Supplemental ranges: <110 mg/dL before meals <200 mg/dL all other times of the day Blood specimen (specimen) 02/11/2014 6:56 AM EDT 02/11/2014 6:56 AM EDT Misty De Guzman MD POINT OF CARE TEST ORDERABLES Performing Organization Address [facility] Co de Phone Number [facility] * (ABNORMAL) Differential, Automated (02/11/2014 4:46 AM [...] Metabolic Panel (non-fasting) (02/11/2014 4:46 AM EDT) [facility] Glucose 152 60 - 199 mg/dL CERNER MILLENNIUM Comment:Diabetes: >=200 mg/d L plus symptoms Blood Urea Nitrogen 17 10 - 20 mg/dL CERNER MILLENNIUM Creatinine 0.90 0.80 - 1.50 mg/dL CERNER MILLENNIUM Comment: Please note that the pediatric reference intervals supplied above were not validated at [facility]. Results from pediatric patients [...] MD CHEMISTRY ORDERABLE S Performing Organization Address City/[facility] Co de Phone Number [facility] * POCT Glucose (02/11/2014 4:35 AM EDT) Glucose, POC 151 60 - 199 mg/dL [facility] Comment: Supplemental ranges: <110 mg/dL before meals <200 mg/dL all other times of the day Blood specimen (specimen) 02/11/2014 4:35 AM EDT 02/11/2014 4:35 AM EDT Misty De Guzman MD POINT OF CARE TEST ORDERABLES Performing Organization Address [facility] Co de Phone Number [facility] * POCT Glucose (02/10/2014 11:29 PM EDT) Glucose, POC 146 60 - 199 mg/dL [facility] Comment: Supplemental ranges: <110 mg/dL before meals <200 mg/dL all other times of the day Blood specimen (specimen) 02/10/2014 11:29 PM EDT 02/10/2014 11:29 PM EDT Misty De Guzman MD POINT OF CARE TEST ORDERABLES Performing Organization Address [facility] de Phone Number [facility] * POCT Glucose (02/10/2014 7:58 PM EDT) Glucose, POC 112 60 - 199 mg/dL [facility] Comment: Supplemental ranges: <110 mg/dL before meals <200 mg/dL all other times of the day Blood specimen (specimen) 02/10/2014 7:58 PM EDT 02/10/2014 7:58 PM EDT Misty De Guzman MD POINT OF CARE TEST ORDERABLES Performing Organization Address [facility] Phone Number SARTHAKWALDO KRAFTIUM * POCT Glucose (02/10/2014 4:06 PM EDT) Glucose, POC 141 60 - 199 mg/dL [facility] Comment: Supplemental ranges: <110 mg/dL before meals <200 mg/dL all other times of the day Blood specimen (specimen) 02/10/2014 4:06 PM EDT 02/10/2014 4:06 PM EDT Misty De Guzman MD POINT OF CARE TEST ORDERABLES Performing Organization Address [facility] de Phone Number BANNERWALDO KRAFTIUM * (ABNORMAL) Differential, Automated (02/10/2014 3:50 PM EDT) Neutrophil % 82.5(H) 34.0 - 71.0 % [facility] MILL[facility]UM Neutrophil Absolute 9.11(H) 1.50 - 6.30 x10(3)/mc [...] Misty De Guzman MD HEMATOLOGY ORDERABL ES [facility] A[facility] * (ABNORMAL) CBC (with Diff) (02/10/2014 3:50 [...] Platelet 185 145 - 370 x10(3)/mc L CERWALDO MURPHYENNIUM RDW Standard Deviation 49.1(H) 35.0 - 46.0 fL CERWALDO MURPHYENNIUM RDW coefficient of variation 14.7(H) 10.9 - 14.4 % DERICK MURPHYENNIUM Mean Platelet Volume 9.5 9.0 - 12.0 fL DERICK MURPHYENNIUM Blood specimen (specimen) 02/10/2014 3:50 PM EDT 02/10/2014 3:56 PM EDT Narrative Resulting Agency Comment Spec In Lab Misty De Guzman MD HEMATOLOGY ORDERABL ES DERICK MURPHY * POCT Glucose (02/10/2014 12:34 PM EDT) Glucose, POC 160 60 - 199 mg/dL [facility] Comment: Supplemental ranges: <110 mg/dL before meals <200 mg/dL all other times of the day Blood specimen (specimen) 02/10/2014 12:34 PM EDT 02/10/2014 12:34 PM EDT Misty De Guzman MD POINT OF CARE TEST ORDERABLES Performing Organization Address [facility]/ZIP Co de Phone Number [facility] * (ABNORMAL) Prothrombin Time (02/10/2014 7:33 AM EDT) Prothrombin Time 17.0(H) 12.0 - 15.0 sec DERICK KRAFTIUM Comment: [facility] Transfusion Committee Guidelines: INR less than 2.0, PTT less than OR equal to 43.5 seconds, or Fibrinogen greater than or equal to 100 mg/dl indicate adequate procoagulant activity for hemostasis in patients without underlying bleeding disorders. International Normalization Ratio 1.3(H) 0.9 - 1.1 DERICK MURPHYENNIUM Blood specimen (specimen) 02/10/2014 7:33 AM EDT 02/10/2014 7:39 AM EDT Narrative Resulting Agency Comment Spec In Lab Misty De Guzman MD HEMATOLOGY ORDERABL ES Performing Organization Address [facility] de Phone Number CERNER MILLENNIUM * Magnesium (02/10/2014 7:33 AM EDT) Magnesium 0.79 0.69 - 1.07 mmol/L CERNER MILLENNIUM Blood specimen (specimen) 02/10/2014 7:33 AM EDT 02/10/2014 7:39 AM EDT Narrative Resulting Agency Comment Spec In Lab Misty De Guzman MD CHEMISTRY ORDERABLE S Performing Organization Address [facility] de Phone Number CERNER MILLENNIUM * (ABNORMAL) [...] HEMATOLOGY ORDERABL ES Performing Organization Address [facility] Co de Phone Number CERNER MILLENNIUM * POCT Glucose (02/10/2014 7:25 AM EDT) Glucose, POC 131 60 - 199 mg/dL BANNERWAL[facility] KRAFTIUM Comment: Supplemental ranges: <110 mg/dL before meals <200 mg/dL all other times of the day Blood specimen (specimen) 02/10/2014 7:25 AM EDT 02/10/2014 7:25 AM EDT Misty De Guzman MD POINT OF CARE TEST ORDERABLES Performing Organization Address [facility] Co de Phone Number DERICK MURPHY * POCT Glucose (02/10/2014 4:11 AM EDT) Glucose, POC 144 60 - 199 mg/dL [facility] Comment: Supplemental ranges: <110 mg/dL before meals <200 mg/dL all other times of the day Blood specimen (specimen) 02/10/2014 4:11 AM EDT 02/10/2014 4:11 AM EDT Misty De Guzman MD POINT OF CARE TEST ORDERABLES Performing Organization Address [facility] Co de Phone Number DERICK MURPHY * (ABNORMAL) Differential, Automated (02/10/2014 2:40 AM EDT) Neutrophil % 76.9(H) 34.0 - 71.0 % [facility] Neutrophil Absolute 8.07(H) 1.50 - 6.30 x10(3)/mc [...] HEMATOLOGY ORDERABL ES Performing Organization Address [facility] de Phone Number DERICK MURPHY * (ABNORMAL) Prothrombin Time (02/10/2014 2:40 AM EDT) Prothrombin Time 16.4(H) 12.0 - 15.0 sec CERNER MILLENNIUM Comment: [facility] Transfusion Committee Guidelines: INR less than [...] HEMATOLOGY ORDERABL ES Performing Organization Address [facility] Co de Phone Number DERICK KRAFTIUM * APTT (02/10/2014 2:40 AM EDT) Partial [...] were not validated at [facility]. Results from pediatric patients [...] De Guzman MD CHEMISTRY ORDERABLE S CERNER ABENAIUM * POCT Glucose (02/09/2014 11:39 PM EDT) Glucose, POC 153 60 - 199 mg/dL [facility] Comment: Supplemental ranges: <110 mg/dL before meals <200 mg/dL all other times of the day Blood specimen (specimen) 02/09/2014 11:39 PM EDT 02/09/2014 11:39 PM EDT Misty De Guzman MD POINT OF CARE TEST ORDERABLES Performing Organization Address [facility] de Phone Number [facility] * EKG 12 Lead (02/09/2014 10:11 PM EDT) Ventricular rate 130 BPM MUSE SYSTEM Atrial Rate 86 BPM MUSE SYSTEM QRS Duration 76 ms MUSE SYSTEM Q-T Interval 332 ms MUSE SYSTEM QTC Calculated (Bezet) 488 ms MUSE SYSTEM Calculated R [place] 47 degrees MUSE SYSTEM Calculated T [place] 35 degrees MUSE SYSTEM INTERPRETATION Atrial fibrillation with rapid ventricular response Low voltage QRS Abnormal ECG When compared with ECG of 18-NOV-2013 13:19, No significant change was found Confirmed by MD Darío, Andrez ([id number]) on 02/10/2014 11:18:33 PM MUSE SYSTEM 02/09/2014 10:1 1 PM EDT 02/10/2014 11:18 PM EDT Misty De Guzman MD ECG ORDERABLES Performing Organization Address [facility] de Phone Number MUSE SYSTEM * POCT Glucose (02/09/2014 10:03 PM EDT) Glucose, POC 115 60 - 199 mg/dL [facility] Comment: Supplemental ranges: <110 mg/dL before meals <200 mg/dL all other times of the day Blood specimen (specimen) 02/09/2014 10:03 PM EDT 02/09/2014 10:03 PM EDT Misty De Guzman MD POINT OF CARE TEST ORDERABLES Performing Organization Address [facility] Co de Phone Number [facility] * (ABNORMAL) Hemogram (02/09/2014 9:00 PM EDT) [...] HEMATOLOGY ORDERABL ES Performing Organization Address [facility] de Phone Number CERNER MILLENNIUM * Creatinine, urine, random (02/09/2014 8:50 PM EDT) Creatinine, Urine 170 mg/dL CERNER MILLENNIUM Urine specimen (specimen) 02/09/2014 8:50 PM EDT 02/09/2014 9:50 PM EDT Narrative Resulting Agency Comment Spec In Lab Misty De Guzman MD URINE ORDERABLES [facility] MILLENNIUM * Electrolytes, urine, random (02/09/2014 8:50 PM EDT) Sodium, Urine 34 mmol/L CERNER MILLENNIUM Potassium, Urine 56 mmol/L CERNER MILLENNIUM Chloride, Urine 22 mmol/L CERNER MILLENNIUM Urine specimen (specimen) 02/09/2014 8:50 PM EDT 02/09/2014 9:50 PM EDT Narrative Resulting Agency Comment Spec In Lab Misty De Guzman MD URINE ORDERABLES Performing Organization Address City/[facility]/ZIP Co de Phone Number CERNER JEFFREYENNIUM * POCT Glucose (02/09/2014 7:21 PM EDT) Glucose, POC 116 60 - 199 mg/dL CERNER MILLENNIUM Comment: Supplemental ranges: <110 mg/dL before meals <200 mg/dL all other times of the day Blood specimen (specimen) 02/09/2014 7:21 PM EDT 02/09/2014 7:21 PM EDT Misty De Guzman MD POINT OF CARE TEST ORDERABLES Performing Organization Address City/[facility] Co de Phone Number CERWALDO MURPHYENNIUM [...] HEMATOLOGY ORDERABL ES Performing Organization Address [facility] Co de Phone Number DERICK KRAFTIUM * Antibody screen (02/09/2014 5:05 PM EDT) Ab Screen Interp Negative BANNERWALDO KRAFTIUM Expires at [id number] on: [id number] [facility] JEFFRE[facility]OUTHE[facility]ENTERIUM Blood specimen (specimen) 02/09/2014 5:05 PM EDT 02/09/2014 5:14 PM EDT Narrative Resulting Agency Comment Spec In Lab Misty De Guzman MD BLOOD BANK LAB ORDE ANGUS Performing Organization Address [facility] de Phone Number [facility] JEFFREY * ABO/Rh Typing (02/09/2014 5:05 PM EDT) ABORH Type A Pos CERWALDO MURPH[facility]OUTHEAST [facility]ENTERIUM Blood specimen (specimen) 02/09/2014 5:05 PM EDT 02/09/2014 5:14 PM EDT Narrative Resulting Agency Comment Spec In Lab Misty De Guzman MD BLOOD BANK LAB ORDE RAJIPOLY Performing Organization Address [facility]/ZIP Co de Phone Number [facility] * (ABNORMAL) Basic Metabolic Panel (non-fasting) (02/09/2014 5:05 PM EDT) Glucose 144 60 - 199 mg/dL CERNER MILLENNIUM Comment:Diabetes: >=200 mg/d L plus symptoms Blood Urea Nitrogen 30(H) 10 - 20 mg/dL CERNER MILLENNIUM Comment:result rechecked- MT F Creatinine 2.96(H) 0.80 - 1.50 mg/dL CERNER MILLENNIUM Comment: result rechecked- MTF Please note that the pediatric reference intervals supplied above were not validated at [facility]. Results from pediatric patients [...] MILLENNIUM * APTT (02/09/2014 5:05 PM EDT) Partial Thromboplastin Time 31 25 - 35 sec CERNER MILLENNIUM Comment: Recommended therapeutic PTT range for full dose unfractionated heparin is 80-114 seconds. Blood specimen (specimen) 02/09/2014 5:05 PM EDT 02/09/2014 5:14 PM EDT Narrative Resulting Agency Comment Spec In Lab Misty De Guzman MD HEMATOLOGY ORDERABL ES Performing Organization Address [facility] de Phone Number CERWALDO MURPHYENNIUM * (ABNORMAL) Prothrombin Time (02/09/2014 5:05 PM EDT) Prothrombin Time 16.3(H) 12.0 - 15.0 sec CERNER MILLENNIUM Comment: [facility] Transfusion Committee Guidelines: INR less than [...] HEMATOLOGY ORDERABL ES Performing Organization Address [facility] Co de Phone Number CERWALDO KRAFTIUM * (ABNORMAL) CBC (with Diff) (02/09/2014 [...] HEMATOLOGY ORDERABL ES Performing Organization Address [facility] Co de Phone Number DERICK MURPHY * POCT Glucose (02/09/2014 5:05 PM EDT) [facility] Signature Glucose, POC 132 60 - 199 mg/dL DERICK MURPHYENNIUM Comment: Supplemental ranges: <110 mg/dL before meals <200 mg/dL all other times of the day Blood specimen (specimen) 02/09/2014 5:05 PM EDT 02/09/2014 5:05 PM EDT Misty De Guzman MD POINT OF CARE TEST ORDERABLES Performing Organization Address [facility] Co de Phone Number DERICK MURPHY * XR Fluoro Upper GI Small Bowel (02/09/2014 3:50 PM EDT) Anatomical Region Laterality Modality N/A Radiographic Sia ging 02/09/2014 3:50 PM EDT Narrative 02/10/2014 12:05 PM EDT Examination UGI W/SMALL BOWEL FOLLOW THROU Clinical History s/p gastric bypass, eval GJ and JJ anastomoses Comparison None Technique Purchase Price Analyst views of the abdomen. Oral administration of [...] GJ and JJ anastomoses Comparison None Technique Purchase Price Analyst views of the abdomen. Oral administration of [...] Glucose, POC 162 60 - 199 mg/dL [facility]ared[facility] Comment: Supplemental ranges: <110 mg/dL before meals <200 mg/dL all other times of the day Blood specimen (specimen) 02/09/2014 11:56 AM EDT 02/09/2014 11:56 AM EDT Misty De Guzman MD POINT OF CARE TEST ORDERABLES Performing Organization Address [facility] Co de Phone Number [facility] * POCT Glucose (02/09/2014 7:19 AM EDT) Glucose, POC 182 60 - 199 mg/dL [facility] Comment: Supplemental ranges: <110 mg/dL before meals <200 mg/dL all other times of the day Blood specimen (specimen) 02/09/2014 7:19 AM EDT 02/09/2014 7:19 AM EDT Misty De Guzman MD POINT OF CARE TEST ORDERABLES Performing Organization Address [facility] Co de Phone Number [facility] * POCT Glucose (02/09/2014 4:53 AM EDT) Glucose, POC 159 60 - 199 mg/dL [facility] Comment: Supplemental ranges: <110 mg/dL before meals [...] Homero Gonzales MD HEMATOLOGY SANDY GRECO CERNER JEFFREYENNIUM * Scan, Peripheral Blood (02/09/2014 4:37 AM EDT) Plat estimate Normal [facility] RBC Morphology Abnormal CERNE R MILLENNIUM Ovalocytes 1-5 /HPF [facility] Blood specimen (specimen) 02/09/2014 4:37 AM EDT 02/09/2014 5:07 AM EDT Narrative Resulting Agency Comment Spec In Lab Homero Gonzales MD HEMATOLOGY ORDE RABLES [facility] * Phosphorus (02/09/2014 4:37 AM EDT) Phosphorus 4.5 2.5 - 4.5 mg/dL [facility] Blood specimen (specimen) 02/09/2014 4:37 AM EDT 02/09/2014 5:07 AM EDT Narrative Resulting Agency Comment Spec In Lab Homero Gonzales MD CHEMISTRY ORDER RICCARDO Performing Organization Address City/[facility] Co de Phone Number [facility] * Magnesium (02/09/2014 4:37 AM EDT) Pathologist [facility] Magnesium 0.75 0.69 - 1.07 mmol/L [facility] Blood specimen (specimen) 02/09/2014 4:37 AM EDT 02/09/2014 5:07 AM EDT Narrative Resulting Agency Comment Spec In Lab Homero Gonzales MD CHEMISTRY ORDER RICCARDO Performing Organization Address [facility]/ZIP Co de Phone Number [facility] * (ABNORMAL) Glucose, fasting (02/09/2014 4:37 AM EDT) Glucose Fasting 176(H) 65 - 99 mg/dL [facility] Comment: ?Fasting* Glucose Interpretive Criteria Normal ?65-99 [...] of Diabetes Mellitus, Position Statement from the [place] [employer]. ??Diabetes Care, Volume 33, Supplement 1, Oct 2009 Blood specimen (specimen) 02/09/2014 4:37 AM EDT 02/09/2014 5:07 AM EDT Narrative Resulting Agency Comment Spec In Lab Homero Gonzales MD CHEMISTRY ORDER RICCARDO Performing Organization Address [facility] Co de Phone Number [employer] * Creatinine (02/09/2014 4:37 AM EDT) [facility] Creatinine 1.13 0.80 - 1.50 mg/dL CERWALDO [facility]ared[facility] Comment: Please note that the pediatric reference intervals supplied above were not validated at [facility]. Results from pediatric patients should be interpreted in conjunction to the patient's age, height and muscle mass. Est Glomerular Filtration Rate >60 >=60 [facility] Comment: This estimated GFR (eGFR) value was [...] MD CHEMISTRY ORDER RICCARDO Performing Organization Address City/[facility] Co de Phone Number [employer] MILLENNIUM * BUN (02/09/2014 4:37 AM EDT) Blood Urea Nitrogen 18 10 - 20 mg/dL CERNER MILLENNIUM Blood specimen (specimen) 02/09/2014 4:37 AM EDT 02/09/2014 5:07 AM EDT Narrative Resulting Agency Comment Spec In Lab Homero Gonzales MD CHEMISTRY ORDER RICCARDO Performing Organization Address [facility] Co de Phone Number CERWALDO MURPHYENNIUM * Electrolytes panel (02/09/2014 4:37 AM EDT) [...] MD CHEMISTRY ORDER RICCARDO Performing Organization Address City/[facility]/ZIP Co de Phone Number CERWALDO MURPHYENNIUM * (ABNORMAL) CBC (with Diff) (02/09/2014 4:37 AM EDT) White Blood Cell 12.8(H) 4.0 - 10.0 x10(3)/mc L CERNER MILLENNIUM Red Blood Cell 4.31(L) 4.63 - 6.08 x10(6)/mc L CERNER MILLENNIUM Hemoglobin 12.7(L) 13.7 - 17.5 gm/dL CERNER MILLENNIUM Hematocrit 38.6(L) 40.0 - 51.0 % [facility] MILLSOUTHEAST [facility]ENTERIUM Mean Cell Volume 89.6 79.0 - 92.0 fL [facility] MILLSOUTHEAST ARI[facility]ENTERIUM Mean Cell Hemoglobin 29.5 25.6 - 32.2 pg [facility]WVUMEDICINE [facility] Mean Cell Hemoglobin Concentration 32.9 32.0 - 36.5 gm/dL [facility] MILLENNIUM Platelet 249 145 - 370 x10(3)/mc L [facility] MILLENNIUM RDW Standard Deviation 46.6(H) 35.0 - 46.0 fL [facility] MILLENNIUM RDW coefficient of variation 14.2 10.9 - 14.4 % [facility] MILLSOUTHEAST ARI[facility]ENTERIUM Mean Platelet Volume 9.9 9.0 - 12.0 fL [facility] Blood specimen (specimen) 02/09/2014 4:37 AM EDT 02/09/2014 5:07 AM EDT Narrative Resulting Agency Comment Spec In Lab Homero Gonzales MD HEMATOLOGY SANDY GRECO Performing Organization Address [facility] Co de Phone Number [facility] * POCT Glucose (02/09/2014 12:26 AM EDT) Glucose, POC 165 60 - 199 mg/dL [facility] Comment: Supplemental ranges: <110 mg/dL before meals <200 mg/dL all other times of the day Blood specimen (specimen) 02/09/2014 12:26 AM EDT 02/09/2014 12:26 AM EDT Misty De Guzman MD POINT OF CARE TEST ORDERABLES Performing Organization Address City/[facility] Co de Phone Number [facility] * POCT Glucose (02/08/2014 7:01 PM EDT) Glucose, POC 152 60 - 199 mg/dL [facility] Comment: Supplemental ranges: <110 mg/dL before meals <200 mg/dL all other times of the day Blood specimen (specimen) 02/08/2014 7:01 PM EDT 02/08/2014 7:01 PM EDT Misty De Guzman MD POINT OF CARE TEST ORDERABLES Performing Organization Address [facility] de Phone Number [facility] * POCT Glucose (02/08/2014 3:23 PM EDT) Glucose, POC 175 60 - 199 mg/dL [facility] Comment: Supplemental ranges: <110 mg/dL before meals <200 mg/dL all other times of the day Blood specimen (specimen) 02/08/2014 3:23 PM EDT 02/08/2014 3:23 PM EDT Misty De Guzman MD POINT OF CARE TEST ORDERABLES Performing Organization Address [facility] de Phone Number [facility] * POCT Glucose (02/08/2014 9:29 AM EDT) Glucose, POC 133 60 - 199 mg/dL [facility] Comment: Supplemental ranges: <110 mg/dL before meals <200 mg/dL all other times of the day Blood specimen (specimen) 02/08/2014 9:29 AM EDT 02/08/2014 9:29 AM EDT Misty De Guzman MD POINT OF CARE TEST ORDERABLES Performing Organization Address [facility] de Phone Number [facility] * Prothrombin Time (02/08/2014 8:34 AM EDT) Prothrombin Time 15.0 12.0 - 15.0 sec [facility] Comment: [facility] Transfusion Committee Guidelines: INR less than 2.0, PTT less than OR equal to 43.5 seconds, or Fibrinogen greater than or equal to 100 mg/dl indicate adequate procoagulant activity for hemostasis in patients without underlying bleeding disorders. International Normalization Ratio 1.1 0.9 - 1.1 [facility] Blood specimen (specimen) 02/08/2014 8:34 AM EDT [...] (2.5 mg/mL) injection ONCE PRN, Starting on 02/08/14 at 1128, Until 02/08/14 at 1700, Intra-Operative (Intra-Procedure), Routine Given 02/08/2014 [...] Demi Jung RN)1932 (Given - Provider: Bari Dukcworth RN)2334 (Given - Provider: Bari Duckworth RN) 0352 (Not Given - Provider: Bari [...] Procedural area)1401 (MAR Unhold - Provider: Admin Adt)2118 (Given - Provider: Mikayla Lincoln RN) 1209 (Given - Provider: Demi Jung RN)2018 (Given - Provider: Bari Duckworth RN) 0839 (Given - Provider: Ora Vela [...] Admin Adt)2113 (Given - Provider: Mikayla Lincoln, RN) 2017 (Given - Provider: Bari Duckworth, RN) venlafaxine (EFFEXOR) tablet 37.5 mg 37.5 mg, Oral, 2 TIMES DAILY, First dose (after last modification) on Sat02/09/14 at 2100, Until Discontinued, Routine 0900 (Not Given - Provider: Tierra Frost, RN - Reason: NPO)0931 (DEC Hold - Provider: Admin Adt - Reason: Transfer to a Procedural area)1401 (DEC Unhold - Provider: Admin Adt)2113 (Given - Provider: Mikayla Lincoln RN) 08 (Given - Provider: Demi Jung RN)2018 (Given - Provider: Bari Duckworth, RN) 0838 [...] RN) 0439 (Rate/Dose Verify - Provider: Mikayla Lincoln, FRACISCO)0638 (New Bag - Provider: Mary Hou, RN)0745 (Rate/Dose Change - Provider: Demi Jung, RN)1928 (Rate/Dose Verify - Provider: Bari Duckworth, RN) 0034 (New Bag - Provider: Bari Duckworth, RN)0633 (Stopped - Provider: Bari Duckworth, RN) HYDROmorphone (DILAUDID) 1 mg/mL OIL AND GAS EXPLORATION TECHNICIAN 30 mL (CANCELED) Intravenous, OIL AND GAS EXPLORATION TECHNICIAN ONLY, Starting on Sat02/08/14 at 1545, Until Diamond 02/11/14 at 0721 1306 (Restarted - Provider: Meliton Mcpherson, RN) lactated ringers infusion (CANCELED) 40 mL/hr, Intravenous, CONTINUOUS, Starting on Sat02/08/14 at 1545, Until Sat02/12/14 at 0658 0150 (New Bag - Provider: Mikayla Lincoln RN)0931 (MAR Hold - Provider: Admin Adt - Reason: Transfer to a Procedural area)1234 (MAR Unhold - Provider: Meliton Mcpherson, FRACISCO)1305 (New Bag - Provider: Meliton Mcpherson, FRACISCO)1533 (Rate/Dose Change - Provider: Tierra Frost, FRACISCO) 0529 (New Bag - Provider: Mikayla Lincoln, FRACISCO) 0402 (New Bag - Provider: Bari Duckworth, RN) PRN Medication Order 02/10/2014 02/11/2014 02/12/2014 oxyCODONE (ROXICODONE) 5 mg/5 mL solution 5-10 mg 5-10 mg, Oral, EVERY 4 HOURS PRN, Starting on Diamond 02/11/14 at 0720, Until Sat02/12/14 at 1450, Pain, Routine thrombn (Hum Plas)-Fib-Apro-Ca (TISSEEL VHIA) 10 mL topical syringe (CANCELED) ONCE PRN, Starting on Sat02/10/14 at 1126, Until Sat02/12/14 at 1450, Intra-Operative (Intra-Procedure), Routine 1126 (Given - Provider: Misty De Guzman MD) documented in this encounter Care Teams Backup Administrator Relationship Specialty Start Date End Date Manolo Castro MD [address] [place] [id number] PCP - General 05/14/12 04/21/17 documented as of this encounter
--- OUTSIDE RECORDS SUMMARY | 2024-06-09 09:21 | XMS_ITS | Encounter Summary ---
Author Organization [facility] [place] [address] Care Team Providers Care Environmental Specialist Name Role Phone Manolo Castro MD Primary Care Provider [phone] Reason for Visit * Reason Onset Date Comments Follow-up 12/21/2013 Encounter Details Date Type Department Care Team (Late Contact Info) Description 12/21/2013 Telephone [place] [address] Narda Allen, CIRCULATING PROCESS INSPECTOR [facility] [place] [address] Follow-up Social History Tobacco Use Types Packs/Day [...] on filedocumented in this encounter Care Teams Environmental Specialist Relationship Specialty Start Date End Date Manolo Castro MD [address] [place] [address] PCP - General 05/14/12 04/21/17 documented as of this encounter
--- OUTSIDE RECORDS SUMMARY | 2024-06-09 09:21 | XMS_ITS | Encounter Summary ---
Author Organization [facility] Address [facility] [place] [address] Care Team Providers Care Supervisor Shipping Name Role Phone Manolo Castro MD Primary Care Provider [phone] Encounter Details Date Type Department Care Team (Late st Contact Info) Description 05/14/2012 7:30 AM EDT Office [place] [address] Radha Sanders APRN [facility] [place] [address] Knee joint replacement by other means (Primary [...] are well acquainted. 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 A very [...] Primary documented in this encounter Care Teams Supervisor Shipping Relationship Specialty Start Date End Date Mnaolo Castro MD [address] [place] [address] PCP - General 05/14/12 04/21/17 documented as of this encounter
--- OUTSIDE RECORDS SUMMARY | 2024-06-09 09:21 | XMS_ITS | Encounter Summary ---
Author Organization [facility] [place] [address] Care Team Providers Care Senior Relationship Manager Name Role Phone Manolo Castro MD Primary Care Provider [phone] Encounter Details Date Type Department Care Team (Late st Contact Info) Description 12/15/2013 Orders Only [place] [address] Narda Allen, [facility] [place] [address] Delayed gastric emptying; Morbid obesity; Hypertension; Type [...] <10%) Impression Normalgastric emptying. Wally Pfeiffer MD IMG NM ORDERABLES documented in this [...] reflux documented in this encounter Care Teams Senior Relationship Manager Relationship Specialty Start Date End Date Manolo Castro MD [address] [place] [address] PCP - General 05/14/12 04/21/17 documented as of this encounter
--- OUTSIDE RECORDS SUMMARY | 2024-06-09 09:21 | XMS_ITS | Encounter Summary ---
Author Organization [facility] Address [facility] [place] [address] Care Team Providers Care Preschool Substitute Teacher Name Role Phone Manolo Castro MD Primary Care Provider [phone] Encounter Details Date Type Department Care Team (Late st Contact Info) Description 12/25/2013 9:36 AM EDT Anesthesia Event [place] [address] Demetrio Gutierrez MD [facility] [place] [address] Anesthesia Record Procedure Summary Procedure Name Responsible [...] Type Details Placement Removal Peripheral IV Line ([place], NICU) - Single Lumen 12/25/13; 0909; 12/25/13; [...] performed by Wally Pfeiffer MDat [facility] END[facility] History Substance Use Topics ??? Smoking [...] discussed with patient whom. Plan discussed with BISCUIT FACTORY WORKER. Misc. Assessment: documented in this encounter Plan [...] mg documented in this encounter Care Teams Preschool Substitute Teacher Relationship Specialty Start Date End Date Manolo Castro MD [address] [place] [address] PCP - General 05/14/12 04/21/17 documented as of this encounter
--- OUTSIDE RECORDS SUMMARY | 2024-06-09 09:21 | XMS_ITS | Encounter Summary ---
Author Organization [facility] Address [facility] [place] [address] Care Team Providers Care Compressor Stations Superintendent Name Role Phone Eduardo Reina MD Primary Care Provider [phone] Encounter Details Date Type Department Care Team (Late st Contact Info) Description 04/11/2012 [place] [address] Jose C Ledbetter, PA [facility] [place] [address] S/P knee replacement (Primary Dx) Social History [...] means documented in this encounter Care Teams Compressor Stations Superintendent Relationship Specialty Start Date End Date Eduardo Reina MD [address] [place], [place] [address] PCP - General 08/29/10 05/13/12 documented as of this encounter
--- OUTSIDE RECORDS SUMMARY | 2024-06-09 09:21 | XMS_ITS | Clinical Summary ---
Author Organization [facility] Address [address] [place] [address] Care Team Providers Care Cartographic Designer Name Role Phone Dominic Restrepo MD Primary Care Provider [phone] Social History Tobacco Use Types Packs/Day Years [...] 2009 Fall Risk Screening 2014 COVID-19 Vaccine ( season) 2023 Hepatitis C Screen Completed 10/11/2021 Procedures Procedure Name Priority Date/Time Associated Diagnosis Comments HEPATITIS C AB W REFLEX TO HCV RNA BY PCR Routine 10/11/2021 9:25 EST from Last 3 Months or Most Recently Relevant to Health Maintenance Results * HEPATITIS C AB W REFLEX TO HCV RNA BY PCR (10/11/2021 9:25 EST) Hep C Antibody Negative Negative 10/12/2021 10:10 EST [facility] Blood VENOUS BLOOD / Unknown 10/11/2021 9:25 EST 10/11/2021 21:22 EST Provider Outr Resulting Lab CHEMISTRY & BLOOD GAS ORDERABLES [facility] [address] [place] [address] from Last 3 Months or Most Recently Relevant to Health Maintenance Care Teams Cartographic Designer Relationship Specialty Start Date End Date Dominic Restrepo MD [address] [place] [address] PCP - General 01/20/20
--- OUTSIDE RECORDS SUMMARY | 2024-06-09 09:21 | XMS_ITS | Encounter Summary ---
Author Organization [facility] Address [facility] [place] [address] Care Team Providers Care Promotional Representative Name Role Phone Manolo Castro MD Primary Care Provider [phone] Encounter Details Date Type Department Care Team (Latest Contact Info) Description 12/25/2013 7:43 AM EDT - 12/25/2013 1:38 PM EDT Hospital En[place] [address] Wally Pfeiffer MD [facility] [place] [address] Discharge Disposition: Home Social History Tobacco Use [...] occurs, please contact your MD/ Please call [phone] before 5pm with problems, questions or concerns. After 5pm call [phone] and ask to speak with the gel coater transportation worker. Discharge instructions reviewed with patient who expresses understanding. * Attachments The following attachments cannot be sent through Care Everywhere. * EGD (UPPER ENDOSCOPY) : POST-OP (TURKISH) documented in this encounter Medications at Time [...] has currently had full participation in the [facility] Bariatric Surgery Program [...] majority of our 40 minutes today in [id number] conversation regarding various treatment options for obesity [...] UPPER GI ENDOSCOPY (12/25/2013 9:36 AM EDT) Pathologist [facility] UPPER GI ENDOSCOPY [facility] Endoscopy ___ Patient Name: Eugene Rueda ? Procedure Date: 12/25/2013 9:36 AM ? Date of : 1950 ? Age: 63 ? Order #: [id number] ? ___ Procedure: ? Upper GI endoscopy Indications: ? Preoperative assessment for bariatric ? surgery, Assessment following Ronnell ? fundoplication Providers: ? Wally Pfeiffer MD, Flavia Schneider ? FRACISCO Bueno, Julienne Pabon, ? Tile Helper Referring : ?Manolo Castro MD Medicines: ? [...] Procedure Code(s): ?? --- Professional --- ? 09618, Upper gastrointestinal ? endoscopy including esophagus, ? [...] specified pre-operative ? examination CPT (R) 2012 [employer]. All Rights Reserved. The codes documented in this report are preliminary and upon physician representative review may be revised to meet current [...] Watson) documented in this encounter Care Teams Promotional Representative Relationship Specialty Start Date End Date Manolo Castro MD [address] [place] [address] PCP - General 05/14/12 04/21/17 documented as of this encounter
--- OUTSIDE RECORDS SUMMARY | 2024-06-09 09:21 | XMS_ITS | Encounter Summary ---
[place] [address] Care Team Providers Care Electroplating Worker Name Role Phone Manolo Castro MD Primary Care Provider [phone] Encounter Details Date Type Department Care Team (Late st Contact Info) Description 02/08/2014 9:48 AM EDT Anesthesia Event [place] [address] Adis Oliva MD [facility] [place] [address] Anesthesia Record Procedure Summary Procedure Name Responsible [...] Transported to recovery. 1511 an stop data 152 Stop Arrived to yolie very, Monitors attached, [...] 931; metacarpal vein (top of hand), left; nghp-nuy-tlixge catheter system; 18 gauge, 1 in length; Yenifer Abernathy RN; intradermal injection, tolerated well, appears comfortable; 0; metacarpal vein (top of hand), left; 02/12/14; 1200 02/08/14 0932 by Annabella Alonso, RN 02/12/14 1200 by Ora Vela, RN ETT Mask Ventilation: Ea sy (1); [...] 02/08/14; 1046 02/08/14 1010 by Leilani Ahn, FIRE POT OPERATOR 02/08/14 1046 by Leilani Ahn CRNA Incision [...] by Wally Pfeiffer MDat [facility] ??? Upper gi endoscopy, diagnostic 12/25/2013 EGD, UPPER GI ENDOSCOPY performed by Wally Pfeiffer MD at [facility] ENDOSCOPY History Substance Use Topics ??? Smoking [...] to blood products. Plan discussed with SH[facility]. [facility]. Assessment: documented in this encounter Miscellaneous Notes [...] propofol (DIPRIVAN) infusion CONTINUOUS PRN, Starting on 5/5/14 at 1225, Until Sat02/08/14 at 1523, Anesthesia [...] mg documented in this encounter Care Teams Electroplating Worker Relationship Specialty Start Date End Date Manolo Castro MD [address] [place] [address] PCP - General 05/14/12 04/21/17 documented as of this encounter
--- OUTSIDE RECORDS SUMMARY | 2024-06-09 09:21 | XMS_ITS | Encounter Summary ---
Author Organization [facility] [place] [address] Care Team Providers Care Foreign Exchange Services Manager Name Role Phone Manolo Castro MD Primary Care Provider [phone] Encounter Details Date Type Department Care Team (Late st Contact Info) Description 11/18/2013 12:30 PM EST Office Visit Hematology [place] [address] Rashida Marc, PT [facility] PHYSICAL MEDICINE & [place] [address] Manolo Castro MD [address] [place], [place] [id number] Other problems of limbs (Primary Dx) Discharge [...] daily. 3. Decreased pain and swelling Therapy Street Flusher Driver Goals: ongoing 1. maintain reduction in swelling & pain. INITIAL TREATMENT INCLUDED: Evaluation and fitting of garments. Pt to benefit from wearing knee highs 20-30 size L and XL depending on sock. Pt would like to try ordering L from [employer] padded athletic sock. He willdo this on [...] Primary documented in this encounter Care Teams Foreign Exchange Services Manager Relationship Specialty Start Date End Date Manolo Castro MD [address] [place] [address] PCP - General 05/14/12 04/21/17 documented as of this encounter
--- OUTSIDE RECORDS SUMMARY | 2024-06-09 09:21 | XMS_ITS | Encounter Summary ---
Author Organization [facility] [place] [address] Care Team Providers Care Aircraft Cleaner Name Role Phone Manolo Castro MD Primary Care Provider [phone] Encounter Details Date Type Department Care Team (Late st Contact Info) Description 07/08/2013 Orders [place] [address] Momo Blount MD [facility] [place] [address] H/O total knee replacement (Primary Dx) Social [...] means documented in this encounter Care Teams Aircraft Cleaner Relationship Specialty Start Date End Date Manolo Castro MD [address] [place], [place] [id number] PCP - General 05/14/12 04/21/17 documented as of this encounter
--- OUTSIDE RECORDS SUMMARY | 2024-06-09 09:21 | XMS_ITS | Encounter Summary ---
Author Organization [facility] Address [facility] [place] [address] Care Team Providers Care Piston Maker Name Role Phone Manolo Castro MD Primary Care Provider [phone] Encounter Details Date Type Department Care Team (Late st Contact Info) Description 07/10/2013 9:28 AM EDT - 07/10/2013 11:59 PM EDT Hospital Encounter XRay at [address] [place] [address] Left hip pain Social History Tobacco Use [...] thigh documented in this encounter Care Teams Piston Maker Relationship Specialty Start Date End Date Manolo Castro MD [address] [place] [address] PCP - General 05/14/12 04/21/17 documented as of this encounter
--- OUTSIDE RECORDS SUMMARY | 2024-06-09 09:21 | XMS_ITS | Encounter Summary ---
Author Organization [facility] [place] [address] Care Team Providers Care Shallot Packer Name Role Phone Manolo Castro MD Primary Care Provider [phone] Reason for Visit * Reason Comments Patient Education Bariatric Surgery Pr ogram preoperative class Encounter Details Date Type Department Care Team ([facility] Contact Info) Description 01/28/2014 12:30 PM EDT Office [place] [address] Narda Allen, SHIPPING AND RECEIVING COORDINATOR [facility] [place] [address] Elevated TSH; Morbid obesity; Hypertension; Type 2 [...] EDT BARIATRIC SURGERY DISCHARGE INFORMATION CONTACT INFORMATION: [phone] Surgeons: Cyndi Lujan Laycock and Hadley [phone] Ota: [phone] (Saturday through Saturday, 8:00 AM -5:00 PM) Dietitian: [phone] Non-business hours: [phone], ask for general surgeon summer sessions director FOR EMERGENCIES: CALL 911 (trouble breathing, chest [...] Follow up with primary care doctor or deployment specialist in 1-2 weeks. Bring meter to [...] and post operative instructions included in the [facility] Bariatric Surgery Program Education Handbook.One hour of [...] and post operative instructions included in the [facility] Bariatric Surgery Program Education Handbook.The one hour [...] He previously attended a Introduction to the [facility] Bariatric Surgery Program seminar,a two hour meeting that provides a program overview as well as expectations. The [facility] Bariatric Surgery Program Educational seminar requirement (3 seminars with post-testing) has been met. The BSP Educational Handbook was provided at visit #1. 2. Pre-operative programmatic evaluations have been done, as noted in previous pathway review. 3. Bariatric Surgery Program evaluations with RD and ORTHODONTIC ASSISTANT have taken place, as noted in previous [...] surgery and post-op routine care/ locations: Admissions/SDP/PACU///2 [place] units ?? medications that increase the risk [...] (pediatric) documented in this encounter Care Teams Shallot Packer Relationship Specialty Start Date End Date Manolo Castro MD [address] [place] [address] PCP - General 05/14/12 04/21/17 documented as of this encounter
--- OUTSIDE RECORDS SUMMARY | 2024-06-09 09:21 | XMS_ITS | Encounter Summary ---
Author Organization [facility] [place] [address] Care Team Providers Care Service Secretary Name Role Phone Manolo Castro MD Primary Care Provider Reason for Visit * Reason Onset Date Comments Other 12/18/2013 Encounter Details Date Type Department Care Team ([facility] Contact Info) Description 12/18/2013 Telephone [place] [address] Narda Allen, ENGINEERING FACULTY [facility] [place] [address] Other Social History Tobacco Use Types Packs/Day [...] on filedocumented in this encounter Care Teams Service Secretary Relationship Specialty Start Date End Date Manolo Castro MD [address] [place] [address] PCP - General 05/14/12 04/21/17 documented as of this encounter
--- OUTSIDE RECORDS SUMMARY | 2024-06-09 09:21 | XMS_ITS | Encounter Summary ---
Author Organization [facility] Address [facility] [place] [address] Care Team Providers Care Fund Manager Name Role Phone Manolo Castro MD Primary Care Provider [phone] Encounter Details Date Type Department Care Team (Latest Contact Info) Description 12/11/2013 8:07 AM EST - 12/11/2013 11:36 AM EST Hospital Encounter [place] [address] Misty De Guzman MD [facility] [place] [address] Discharge Disposition: Home Social History Tobacco Use [...] occurs, please contact your MD/ Please call [phone] before 5pm with problems, questions or concerns. After 5pm call [phone] and ask to speak with the video game maker furniture lumber production worker. Discharge instructions reviewed with patient who expresses understanding. * Attachments The following attachments cannot be sent through Care Everywhere. * UPPER GI ENDOSCOPY: WHAT TO EXPECT AT HOME (SRI LANKAN) documented in this encounter Medications at Time [...] currently had full participation in the [facility] Bariatric Surgery Program and meets NIH criteria [...] majority of our 40 minutes today in [id number] conversation regarding various treatment options for obesity [...] (12/11/2013 10:10 AM EST) Final Diagnosis ? [facility] ? Provider: ?? MISTY DE GUZMAN ??Pt. Name: ?? EUGENE PURVIS ? Acc #: ?[id number] ?Pt. ? Col Date: ?? 12/11/2013 ?/Sex: [...] post Ronnell ? Clinical Diagnosis: ? Question Abarac's 12/15/2013 10:06 AM EDT [facility] GI Biopsy 12/11/2013 10:1 0 AM EST 12/11/2013 10:10 AM EST Misty De Guzman MD PATHOLOGY/CYTOLOGY ORDERABLES Performing Organization Address City/State/[facility] Co de Phone Number [facility] [place] [address] * Specimen to Pathology (surgical or derm) (12/11/2013 10:10 AM EST) AP Specimen 12/11/2013 10:1 0 AM EST 12/11/2013 10:10 AM EST Narrative DERICK MURPHY - 12/11/2013 10:10 AM EST Specimen requisition ordered. ??Separate Pathology report to follow Misty De Guzman MD PATHOLOGY/CYTOLOGY ORDERABLES [facility]ERICK MURPHY * UPPER GI ENDOSCOPY (12/11/2013 9:31 AM EST) UPPER GI ENDOSCOPY [facility] Patient Name: Eugene Purvis ? Procedure Date: 12/11/2013 9:31 AM ? [facility]: [id number] ? Date of : 1950 ? Age: 62 ? Order #: [id number] ? Procedure: ? Upper GI endoscopy Indications: ? Preoperative assessment for bariatric ? surgery, Assessment following Ronnell ? fundoplication Providers: ? Misty De Guzman MD, Nora ? Noy, RN, Milka Baez, ? Safety Trainer Referring MD: ?Manolo Castro MD Medicines: [...] Castro MD GENERAL SURGICAL ORD ERABLES PROVATION * POCT Glucose (12/11/2013 8:59 AM EST) Glucose, POC 172 60 - 199 mg/dL CERNER MILLENNIUM Comment: Supplemental ranges: <110 mg/dL before meals <200 mg/dL all other times of the day Blood specimen (specimen) 12/11/2013 8:59 AM EST 12/11/2013 8:59 AM EST Misty De Guzman MD POINT OF CARE TEST ORDERABLES Performing Organization Address City/[facility] Co de Phone Number [facility] documented in this encounter Visit Diagnoses Not [...] RN) documented in this encounter Care Teams Fund Manager Relationship Specialty Start Date End Date Manolo Castro MD [address] [place] [address] PCP - General 05/14/12 04/21/17 documented as of this encounter
--- OUTSIDE RECORDS SUMMARY | 2024-06-09 09:21 | XMS_ITS | Encounter Summary ---
Author Organization [facility] Address [facility] [place] [address] Care Team Providers Care Outpatient Facility Physical Therapist Name Role Phone Manolo Castro MD Primary Care Provider Reason for Visit * Reason Comments Left Hip Pain hip pain Encounter Details Date Type Department Care Team (Late st Contact Info) Description 07/10/2013 10:05 AM EDT Office [place] [address] Momo Blount MD [facility] [place] [address] Hip arthritis (Primary Dx) Discharge Disposition: Home [...] thigh documented in this encounter Care Teams Outpatient Facility Physical Therapist Relationship Specialty Start Date End Date Manolo Castro MD [address] [place] [address] PCP - General 05/14/12 04/21/17 documented as of this encounter
--- OUTSIDE RECORDS SUMMARY | 2024-06-09 09:21 | XMS_ITS | Encounter Summary ---
Author Organization [facility] Address [facility] [place] [address] Care Team Providers Care Staking Engineer Name Role Phone Manolo Castro MD Primary Care Provider [phone] Encounter Details Date Type Department Care Team (Late st Contact Info) Description 12/25/2013 9:30 AM EDT - 12/25/2013 10:00 AM EDT Surgery [place] [address] Wally Pfeiffer MD [facility] [place] [address] EGD, UPPER GI ENDOSCOPY (WRVU 2.09) Social [...] occurs, please contact your MD/ Please call [phone] before 5pm with problems, questions or concerns. After 5pm call [phone] and ask to speak with the prevention specialist extrusion die corrector. Discharge instructions reviewed with patient who expresses understanding. * Attachments The following attachments cannot be sent through Care Everywhere. * EGD (UPPER ENDOSCOPY) : POST-OP (SENEGALESE) documented in this encounter Medications at Time [...] has currently had full participation in the [facility] Bariatric Surgery Program and meets NIH criteria [...] majority of our 40 minutes today in [id number] conversation regarding various treatment options for obesity [...] (12/25/2013 9:36 AM EDT) UPPER GI ENDOSCOPY [facility] Endoscopy ___ Patient Name: Eugene Rueda ? Procedure Date: 12/25/2013 9:36 AM ? Date of : 1950 ? Age: 63 ? Order #: [id number] ? ___ Procedure: ? Upper GI endoscopy Indications: ? Preoperative assessment for bariatric ? surgery, Assessment following Ronnell ? fundoplication Providers: ? Wally Pfeiffer MD, Flavia Schneider ? FRACISCO Bueno, Julienne Pabon, ? Dbas Referring MD: ?Manolo Castro MD Medicines: ? Sedation Required [...] Procedure Code(s): ?? --- Professional --- ? 95126, Upper gastrointestinal ? endoscopy including esophagus, ? [...] specified pre-operative ? examination CPT (R) 2012 [employer]. All Rights Reserved. The codes documented in this report are preliminary and upon ophthalmic medical technician review may be revised to meet current [...] Watson) documented in this encounter Care Teams Staking Engineer Relationship Specialty Start Date End Date Manolo Castro MD [address] [place] [address] PCP - General 05/14/12 04/21/17 documented as of this encounter
--- OUTSIDE RECORDS SUMMARY | 2024-06-09 09:21 | XMS_ITS | Encounter Summary ---
Author Organization [facility] [place] [address] Care Team Providers Care Nurses' Registry Director Name Role Phone Manolo Castro MD Primary Care Provider [phone] Reason for Visit * Reason Comments Patient Education Bariatric Surgery Pr ogram preoperative class Encounter Details Date Type Department Care Team ([facility] [address] Contact Info) Description 12/18/2013 10:00 AM EDT Office [place] [address] Narda Allen, DIRECTOR OF PATIENT SAFETY [facility] [address] Obesity (Primary Dx); Atrial fibrillation; Chronic anticoagulation; [...] needed. BARIATRIC SURGERY DISCHARGE INFORMATION CONTACT INFORMATION: [phone] Surgeons: Dr. Martinez, Cyndi, Margarette and Trus [phone] Reheat Furnace Operator: [phone] (Saturday through Saturday, 8:00 AM -5:00 PM) Dietitian: [phone] Non-business hours: [phone], ask for general surgeon loader semiconductor dies FOR EMERGENCIES: CALL 911 (trouble breathing, chest [...] had open gastric bypass and have dino: Cassandra should be removed 10 - 12 days after surgery. This can be done at [facility] or via Primary Care Provider (PCP). Do [...] 200 on more than 3 rechecks, [facility] or diabetic specialist for specific recommendations, or as recommended at discharge. Follow up with primary care doctor or permit specialist in 1-2 weeks. Bring meter to [...] and post operative instructions included in the [facility] Bariat[facility] Surgery [facility] Education Handbook.One hour of [...] and post operative instructions included in the [facility] Bariat[facility] Surgery [facility] Education Handbook.The one hour [...] He previously attended a Introduction to the [facility] Bariat[facility] Surgery Program seminar,a two hour meeting that provides a program overview as well as expectations. The [facility] Bariatric Surgery Program Educational seminar requirement (3 seminars with post-testing) has been met. The BSP Educational Handbook was provided at visit #1. 2. Pre-operative programmatic evaluations have been done, as noted in previous pathway review. 3. Bariatric Surgery Program evaluations with RD and MARINE EQUIPMENT ENGINEER have taken place, as noted in previous [...] surgery and post-op routine care/ locations: Admissions/SDP/PACU/01/07/ [place] units ?? medications that increase the risk [...] in this encounter Plan of Treatment Scheduled Orders Name Type Priority Associated Diagnoses [...] (pediatric) documented in this encounter Care Teams Nurses' Registry Director Relationship Specialty Start Date End Date Manolo Castro MD [address] [place] [address] PCP - General 05/14/12 04/21/17 documented as of this encounter
--- OUTSIDE RECORDS SUMMARY | 2024-06-09 09:21 | XMS_ITS | Encounter Summary ---
Author Organization [facility] Address [facility] [place] [address] Care Team Providers Care Performance Test Architect Name Role Phone Manolo Castro MD Primary Care Provider [phone] Reason for Referral * Physical Therapy (Routine) - Closed Specialty Diagnoses / Procedures Referred By Sonal dawson Referred To Contact Physical Therapy Diagnoses Varicose veins Flavia Chavez MD [facility] [address] [place] [address] [facility] [place] [address] Referral ID Status Reason Start Date Expiration Date V isits Requested Visits Authorized [id number] Closed Evaluate and Treat 11/18/2013 05/17/2014 1 1 Reason for Visit * Reason Comments Schedule Office Case Encounter Details Date Type Department Care Team (Latest Contact Info) Description 11/18/2013 9:30 AM EST Office Visit [place] [address] Flavia Chavez MD [facility] [address] [place] [address] Pre-op exam (Primary Dx); Varicose [...] 9:20 AM EST [facility] Department of Medicine [place] [address] [facility] THROMBOSIS CONSULTATION DATE OF VISIT 11/18/2013 Patient Eugene Rueda 1950 REFERRING PHYSICIAN PARESH ALLEN APRN PRIMARY CARE PHYSICIAN MANOLO CASTRO MD REASON FOR CONSULTATION Perioperative management of anticoagulation HISTORY OF THE PRESENT ILLNESS Eugene Rueda is a 62 y.o. man with history of atrial fibrillation on chronic anticoagulation, who is seen in consultation at the request of Paresh Allen APRN for perioperative management of anticoagulation. [...] years. He denies any history of stroke, RI. No history of DVT or PE. 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 His [id number] score is 2 for his DM and HTN.The adjust stroke rate/year is about 2.2%. He is considered to be at low risk of thromboembolic event from his atrial fibrillation with [id number] score of 2 during the interruption of [...] the change of my recommendation with his precision lens generator Dr. Fong and Paresh Allen APRN who agreed with the plan. [...] anticoagulants documented in this encounter Care Teams Performance Test Architect Relationship Specialty Start Date End Date Manolo Castro MD [address] [place] [address] PCP - General 05/14/12 04/21/17 documented as of this encounter
--- OUTSIDE RECORDS SUMMARY | 2024-06-09 09:21 | XMS_ITS | Encounter Summary ---
[facility] [place] [address] Care Team Providers Care Frog Shaker Name Role Phone Manolo Castro MD Primary Care Provider [phone] Encounter Details Date Type Department Care Team (Latest Contact Info) Description 11/18/2013 8:11 AM EST - 11/18/2013 11:59 PM [facility] Hospital Encounter XRay at [address] [place] [address] CLINIC, Wally Che MD [facility] [place] [address] Morbid obesity; Status post Ronnell fundoplication (without [...] surgery, s/p paraesophagal hernia repair and Ronnell [id number]. Check integrity of wrap and evaluate for [...] on Sat11/18/13 at 0904, Until Sat11/18/13 at 09, Per Protocol, Routine Given 11/18/2013 9:06 AM EST 355 mLs barium sulfate (POLIBAR PLUS) oral suspension 130 mL 130 mL, Oral, ONCE PRN, 1 dose, Starting on Sat11/18/13 at 0905, Until Sat11/18/13 at 09, Per Protocol, Routine Given 11/18/2013 9:06 AM EST 130 mLs documented in this encounter Care Teams Frog Shaker Relationship Specialty Start Date End Date Manolo Castro MD [address] [place] [address] PCP - General 05/14/12 04/21/17 documented as of this encounter
--- OUTSIDE RECORDS SUMMARY | 2024-06-09 09:21 | XMS_ITS | Encounter Summary ---
Author Organization [facility] Address [address] [place] [address] Care Team Providers Care Closer On Name Role Phone Dominic Restrepo MD Primary Care Provider [phone] Encounter Details Date Type Department Care Team (Late st Contact Info) Description 01/31/2024 Lab Requisition [facility] Pathology & Laboratory Medicine - [address] [address] Outr Resulting Lab, Provider Social History Tobacco [...] Salmonella PCR Negative Negative 02/01/2024 10:42 EDT [facility] Shigella/Enteroin vasive E. coli Negative Negative 02/01/2024 10:42 EDT [facility] HN LAB CAMPYLOBACTER PCR Negative Negative 02/01/2024 10:42 EDT [facility] Shiga Toxin PCR Negative Negative 10:42 EDT [facility] Feces SPECIMEN FROM RECTUM / Unknown 01/31/2024 11:50 EDT 01/31/2024 22:07 EDT Provider Outr Resulting Lab MICROBIOLOGY - GENERAL ORDERABLES [facility] [address] [place], [place] [address] documented in this encounter Visit Diagnoses Not on filedocumented in this encounter Care Teams Closer On Relationship Specialty Start Date End Date Dominic Restrepo MD [address] [place] [address] PCP - General 01/20/20 documented as of this encounter
--- OUTSIDE RECORDS SUMMARY | 2024-06-09 09:21 | XMS_ITS | Encounter Summary ---
Author Organization [facility] [place] [address] Care Team Providers Care Stevedore Hold Name Role Phone Manolo Castro MD Primary Care Provider [phone] Encounter Details Date Type Department Care Team (Late st Contact Info) Description 07/28/2013 Notes [place] [address] Narda Allen APRN [facility] [place] [address] Social History Tobacco Use Types Packs/Day Years [...] BARIATRIC SURGERY PROGRAM SURGICAL TEAM CASE REVIEW Eugeen Rueda is a 62 y.o. year-old male. [...] on filedocumented in this encounter Care Teams Stevedore Hold Relationship Specialty Start Date End Date Manolo Castro MD [address] [place] [address] PCP - General 05/14/12 04/21/17 documented as of this encounter
--- OUTSIDE RECORDS SUMMARY | 2024-06-09 09:21 | XMS_ITS | Encounter Summary ---
Author Organization [facility] [place] [address] Care Team Providers Care Microbiology Supervisor Name Role Phone Manolo Castro MD Primary Care Provider [phone] Encounter Details Date Type Department Care Team (Late st Contact Info) Description 02/02/2014 Telephone [place] [id number] Milka Barrios, RN Social History Tobacco Use [...] on filedocumented in this encounter Care Teams Microbiology Supervisor Relationship Specialty Start Date End Date Manolo Castro MD [address] [place] [address] PCP - General 05/14/12 04/21/17 documented as of this encounter
--- OUTSIDE RECORDS SUMMARY | 2024-06-09 09:21 | XMS_ITS | Encounter Summary ---
Author Organization [facility] Address [facility] [place] [address] Care Team Providers Care Retention Manager Name Role Phone Manolo Castro MD Primary Care Provider [phone] Reason for Visit * Reason Onset Date Comments Follow-up 12/14/2013 Encounter Details Date Type Department Care Team (Late Contact Info) Description 12/14/2013 Telephone [place] [address] Narda Allen, DIATHERMY EQUIPMENT REPAIRER [facility] [place] [address] Follow-up Social History Tobacco Use Types Packs/Day [...] on filedocumented in this encounter Care Teams Retention Manager Relationship Specialty Start Date End Date Manolo Castro MD [address] [place] [address] PCP - General 05/14/12 04/21/17 documented as of this encounter
--- OUTSIDE RECORDS SUMMARY | 2024-06-09 09:22 | XMS_ITS | Encounter Summary ---
Author Organization [facility] Address [address] [place] [address] Care Team Providers Care University Professor Name Role Phone Dominic Restrepo MD Primary Care Provider [phone] Encounter Details Date Type Department Care Team (Late st Contact Info) Description 01/21/2020 Lab Requisition [facility] Pathology & Laboratory Medicine - [address] [address] Jolly Perry, CONSTRUCTION INSPECTOR [address] [place] [address] [place] [address] Encounter for other general examination [...] Name Priority Date/Time Associated Diagnosis Comments NON ANIMAL TRAINER SUPERVISOR/FNA CYTOLOGY Today 01/20/2020 9:30 EDT Encounter for other general examination documented in this encounter Results * NON ANIMAL TRAINER SUPERVISOR/FNA CYTOLOGY (01/20/2020 9:30 EDT) Final Diagnosis URINE, VOIDED, CYTOLOGIC EVALUATION: - Rare atypical urothelial cells present. 01/21/2020 17:40 EDT [facility] at 1740 Diagnosis Comment Cytologic evaluation reveals rare atypical urothelial cells with nuclear enlargement and superimposed degenerative changes. Acute inflammation and red blood cells are also present. The scant and degenerative nature of these atypical urothelial cells precludes further characterization. Wheel Borer slides of this case were reviewed at the intradepartmental consultation conference. 01/21/2020 17:40 EDT [facility] Clinical History Gross hematuria 01/21/2020 17:40 T [facility] Attestation By the signature below, the attending physician certifies that they have personally conducted a gross and/or microscopic examination of the described specimens and rendered or confirmed the above diagnosis. 01/21/2020 17:40 EDT [facility] at 1740 Gross Description 60 ccs of clear yellow fluid (with and additional 60 ccs of Cytolyt added) were received and processed by selective cellular enhancement technique. 01/21/2020 17:40 T [facility] Scanned Images 01/21/2020 17:40 T [facility] Urine VOIDED URINE SPECIMEN / Unknown 01/20/2020 9:30 EDT 01/21/2020 8:10 EDT Jolly Perry NP PATHOLOGY ORDERABLES [facility] [address] [place] [address] documented in this encounter Visit Diagnoses Diagnosis Encounter for other general examination documented in this encounter Care Teams University Professor Relationship Specialty Start Date End Date Dominic Restrepo MD [address] [place] [address] PCP - General 01/20/20 documented as of this encounter
--- OUTSIDE RECORDS SUMMARY | 2024-06-09 09:22 | XMS_ITS | Encounter Summary ---
Author Organization [facility] Address [address] [place] [address] Care Team Providers Care Employee Communications Manager Name Role Phone Unknown, Provider Primary Care Provider [phone] Encounter Details Date Type Department Care Team (Late st Contact Info) Description 06/01/2013 Results Only [facility] Laboratory Services - [facility] [address] [place], [place] [address] Manolo Castro MD [address] [facility] [address] [place], [place] [address] Social History Tobacco Use Types Packs/Day Years [...] taken when reading/interpreting unformatted reports. Name: ? BRANDYNICOLASEUGENE Boo ? Accession #: ? [id number] ? : ? 1950 (Age: 62) ??M ? Collect Date: ? 06/01/2013 ? Location: ? [facility] ? Receive Date: ? 06/02/2013 ? Provider: MANOLO CASTRO MD Copy to: ? Final Pathologic Diagnosis: SKIN OF HAND, LEFT, PUNCH BIOPSY: - Irregular epidermal hyperplasia with hyperkeratosis. ??See microscopic and comment. 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 ??(Dr. Boyle)/[facility] Microscopic Description: The stratum corneum is thickened by orthohyperkeratosis with foci of parakeratosis and scale crust. ??The epidermis shows marked irregular hyperplasia with elongate and thickened rete ridges. ??The keratinocytes show mild reactive changes with an accentuated granular layer. ??The dermal papillae are widened by thick bundles of collagen oriented in a vertical array. There is mild chronic inflammation. ??(Dr. Boyle)/[facility] Document reviewed and electronically signed by: ZOHRA [...] MD PATHOLOGY ORDERABLES [facility] [address] [place] [address] documented in this encounter Visit Diagnoses Not on filedocumented in this encounter Care Teams Employee Communications Manager Relationship Specialty Start Date End Date Unknown, Provider, PCP - General 02/08/10 12/02/13 documented as of this encounter
--- OUTSIDE RECORDS SUMMARY | 2024-06-09 09:22 | XMS_ITS | Encounter Summary ---
Author Organization [facility] Address [address] [place] [address] Care Team Providers Care Photographic Equipment Mechanic Name Role Phone Dominic Restrepo MD Primary Care Provider [phone] Encounter Details Date Type Department Care Team (Late st Contact Info) Description 03/28/2020 Lab Requisition [facility] Pathology & Laboratory Medicine - [address] [address] Lewis Henderson MD [address] [place] [address] [place], [place] [address] Encounter for other general examination Social History [...] - Fragments of tubular adenoma(s). [facility]2020 [facility]2 Attestation By the signature below, the attending physician certifies that they have 1) personally conducted a gross and/or microscopic examination of the described specimen(s), and/or personally interpreted the results of laboratory testing of the described specimen(s), and 2) personally rendered or confirmed the above diagnosis. 03/29/2020 13:23 [facility] at 1322 Clinical History H/O colon polyps 03/29/2020 13:23 [facility] Gross Description A. Received [...] D1. Vanessa Sam 03/28/2020 16:30 03/29/2020 13:23 [facility] Scanned Images 03/29/2020 13:23 [facility] Tissue ENTIRE SIGMOID COLON / Unknown 03/28/2020 10:27 EDT 03/28/2020 16:06 EDT Tissue specimen (specimen) TRANSVERSE COLON STRUCTURE / Unknown 03/28/2020 10:27 EDT 03/28/2020 16:06 EDT Tissue specimen (specimen) SIGMOID COLON STRUCTURE / Unknown 03/28/2020 10:27 EDT 03/28/2020 16:06 EDT Tissue specimen (specimen) SIGMOID COLON STRUCTURE / Unknown 03/28/2020 10:27 EDT 03/28/2020 16:06 EDT Lewis Henderson MD PATHOLOGY ORDERA BLES [facility] [address] [place] [address] documented in this encounter Visit Diagnoses Diagnosis Encounter for other general examination documented in this encounter Care Teams Photographic Equipment Mechanic Relationship Specialty Start Date End Date Dominic Restrepo MD [address] [place] [address] PCP - General 01/20/20 documented as of this encounter
--- OUTSIDE RECORDS SUMMARY | 2024-06-09 09:22 | XMS_ITS | Encounter Summary ---
Author Organization [facility] Address [address] [place] [address] Care Team Providers Care Medical Or Surgical Instrument Maker Name Role Phone Dominic Restrepo MD Primary Care Provider [phone] Encounter Details Date Type Department Care Team (Late st Contact Info) Description 01/29/2020 Lab Requisition [facility] Pathology & Laboratory Medicine - [address] [address] Unknown, Provider, Social History Tobacco Use Types [...] Provider Unknown MICROBIOLOGY - CANDELARIA AL ORDERABLES [facility] [address] [place] [address] * COVID-19 TESTING (01/29/2020 9:47 EDT) COVID-19 rt-PCR Result Negative Negative 01/30/2020 13:57 EDT [facility] Comment: Negative results do [...] the FDA is pending. Performed on the menuvox Fast Performing Lab [facility] 01/30/2020 13:57 EDT [facility] Swab ENTIRE NASOPHARYNX / Unknown 01/29/2020 9:47 EDT 01/29/2020 15:26 EDT Provider Unknown MICROBIOLOGY - GENER AL ORDERABLES [facility] [address] [place] [address] documented in this encounter Visit Diagnoses Not on filedocumented in this encounter Care Teams Medical Or Surgical Instrument Maker Relationship Specialty Start Date End Date Dominic Restrepo MD [address] [place] [address] PCP - General 01/20/20 documented as of this encounter
--- OUTSIDE RECORDS SUMMARY | 2024-06-09 09:22 | XMS_ITS | Encounter Summary ---
Author Organization [facility] Address [address] [place] [address] Care Team Providers Care Per Diem Physical Therapist Name Role Phone Dominic Restrepo MD Primary Care Provider [phone] Encounter Details Date Type Department Care Team (Late st Contact Info) Description 10/11/2021 Lab Requisition [facility] Pathology & Laboratory Medicine - [facility] [address] [place], [place] [address] Outr Resulting Lab, Provider Social History Tobacco [...] 4th Generation Negative Negative 10/12/2021 10:21 EST [facility] Comment:If acute HIV-1 infec tion is suspected in a high risk patient, submit plasma specimen for HIV-1 RNA quantitation test. Blood VENOUS BLOOD / Unknown 10/11/2021 9:25 EST 10/11/2021 21:22 EST Narrative [facility] - 10/12/2021 10:21 EST Fourth Generation assay performed on the Siemens Centaur XPT. Provider Outr Resulting Lab IMMUNOLOGY A ND SEROLOGY ORDERABLES [facility] [address] [place] [address] documented in this encounter Visit Diagnoses Not on filedocumented in this encounter Care Teams Per Diem Physical Therapist Relationship Specialty Start Date End Date Dominic Restrepo MD [address] [facility] [place] [address] PCP - General 01/20/20 documented as of this encounter
--- OUTSIDE RECORDS SUMMARY | 2024-06-09 09:22 | XMS_ITS | Encounter Summary ---
Author Organization [facility] Address [address] [place] [address] Care Team Providers Care Licensed Social Worker Name Role Phone Dominic Restrepo MD Primary Care Provider [phone] Encounter Details Date Type Department Care Team (Late st Contact Info) Description 03/03/2021 Lab Requisition [facility] Pathology & Laboratory Medicine - [facility] [address] [place] [address] Tamir Osuna MD [address] [place] [address] [place] [address] Encounter for other general examination [...] Name Priority Date/Time Associated Diagnosis Comments NON PHARMACEUTICAL SPECIALTY REPRESENTATIVE/FNA CYTOLOGY Today 03/02/2021 8:47 EDT Encounter for other general examination documented in this encounter Results * NON PHARMACEUTICAL SPECIALTY REPRESENTATIVE/FNA CYTOLOGY (03/02/2021 8:47 EDT) Final Diagnosis URINE, CATHETERIZED, CYTOLOGIC EVALUATION: - Negative for high grade urothelial carcinoma. 03/03/2021 14:35 EDT [facility] Attestation By the signature below, the attending physician certifies that they have personally conducted a gross and/or microscopic examination of the described specimens and rendered or confirmed the above diagnosis. 03/03/2021 14:35 EDT [facility] at 1435 Clinical History Bladder cancer 03/03/2021 14:35 EDT [facility] Gross Description A. 60ccs of clear yellow fluid, of which 60ccs are composed of fixative, were received and processed by selective cellular enhancement technique. 03/03/2021 14:35 EDT [facility] Performing Lab [facility] 03/03/2021 14:35 EDT [facility] Scanned Images 03/03/2021 14:35 [facility] Fluid URINE SPECIMEN COLLECTION, CATHETERIZED / Unknown 03/02/2021 8:47 EDT 03/03/2021 7:16 EDT Tamir Osuna MD PATHOLOGY ORDERAB LES Performing Organization Address City/State/[facility] Co de Phone Number [facility] [address] [place] [address] documented in this encounter Visit Diagnoses Diagnosis Encounter for other general examination documented in this encounter Care Teams Licensed Social Worker Relationship Specialty Start Date End Date Dominic Restrepo MD [address] [place] [address] PCP - General 01/20/20 documented as of this encounter
--- OUTSIDE RECORDS SUMMARY | 2024-06-09 09:22 | XMS_ITS | Patient Health Record ---
Author Organization [facility] Address [address] [place] [address] Care Team Providers Care Clinical Registered Nurse Name Role Phone EDILBERTO HEARN Primary Care Provider Unavail able Narciso Gomez [phone] REASON FOR REFERRAL No Information PLAN OF TREATMENT No Information Insurance Providers Payer Name Payer Address Payer Phone Subscriber Number Group Number Insured Name Patient Relationship to Insured Coverage Start Date Coverage End Date [employer] MEDICARE COMPLETE [address] [address] [place] [phone] [id number] MELANIE PURVIS Self - patient is the insured [place] [address] MELANIE PURVIS Self - patient is the insured
--- OUTSIDE RECORDS SUMMARY | 2024-06-09 09:22 | XMS_ITS | Encounter Summary ---
Author Organization [facility] Address [address] [place] [address] Care Team Providers Care Diploma Maker Name Role Phone Dominic Restrepo MD Primary Care Provider [phone] Encounter Details Date Type Department Care Team (Late st Contact Info) Description 05/06/2020 Lab Requisition [facility] Pathology & Laboratory Medicine - [facility] [address] [place] [address] Outr Resulting Lab, Provider Social History Tobacco [...] in accordance with CLIA regulations, [employer] (CAP) guidelines (Dec 24, 2019), and FDA guidance (Dec 05, 2019). This test is only for use under the Food and Drug Administration's Emergency Use Authorization. Swab ENTIRE NASOPHARYNX / Unknown 05/06/2020 10:29 EDT 05/06/2020 15:55 EDT Provider Outr Resulting Lab MICROBIOLOGY - GENERAL ORDERABLES [facility] [place] * COVID-19 TESTING (05/06/2020 10:29 EDT) COVID-19 rt-PCR Result NEGATIVE Negative 05/08/2020 0:11 EDT [facility] Comment: 2019-novel Coronavirus (2019-nCoV) not detected [...] in accordance with CLIA regulations, [employer] (CAP) guidelines (Dec 24, 2019), and FDA guidance (Dec 05, 2019). This test is only for use under the Food and Drug Administration's Emergency Use Authorization. Performing Lab [facility] 05/08/2020 0:11 EDT [facility] Swab 05/06/2020 10:2 9 EDT 05/06/2020 15:55 EDT Provider Outr Resulting Lab MICROBIOLOGY - GENERAL ORDERABLES [facility] [address] [place] [address] [facility] [place], [place] documented in this encounter Visit Diagnoses Not on filedocumented in this encounter Care Teams Diploma Maker Relationship Specialty Start Date End Date Dominic Restrepo MD [address] [place] [address] PCP - General 01/20/20 documented as of this encounter
--- OUTSIDE RECORDS SUMMARY | 2024-06-09 09:22 | XMS_ITS | Encounter Summary ---
Author Organization [facility] Address [address] [place] [address] Care Team Providers Care Accountant Manager Name Role Phone Unknown, Provider Primary Care Provider [phone] Encounter Details Date Type Department Care Team (Late st Contact Info) Description 04/04/2012 Results Only [facility] [phone] Laura Galvez, DO [address] [place] [address] Social History Tobacco Use Types [...] when reading/interpreti ng unformatted reports. Name: ? SANACHAVOEUGENE Boo ? Accession #: ? [id number] ? : ? 1950 (Age: 61) ??M [...] in toto as (C1) and (C2). ??(Yrn [place])/[facility] End of Report [facility] 04/04/2012 04/04/2012 7:5 5 EDT Laura Galvez DO PATHOLOGY ORDERABLES [facility] [address] [place] [address] documented in this encounter Visit Diagnoses Not on filedocumented in this encounter Care Teams Accountant Manager Relationship Specialty Start Date End Date Unknown, Provider, PCP - General 02/08/10 12/02/13 documented as of this encounter
--- OUTSIDE RECORDS SUMMARY | 2024-06-09 09:22 | XMS_ITS | Encounter Summary ---
Author Organization [facility] Address [address] [place] [address] Care Team Providers Care Barrel Lathe Operator Name Role Phone Dominic Restrepo MD Primary Care Provider [phone] Encounter Details Date Type Department Care Team (Late st Contact Info) Description 11/10/2020 Lab Requisition [facility] Pathology & Laboratory Medicine - [address] [address] Outr Resulting Lab, Provider Social History Tobacco [...] Outr Resulting Lab MICROBIOLOGY - GENERAL ORDERABLES [facility] [address] [place] [address] * COVID-19 TESTING (11/10/2020 9:19 EST) COVID-19 rt-PCR Result Negative Negative 11/11/2020 15:24 EST [facility] Comment: This test has not [...] developed and its performance characteristics determined by [facility]. It has not been cleared or approved [...] testing. This test is based on the [facility] COVID-19 Emergency Use Authorization (EUA) assay, with minor modification as defined by the FDA Performed on the Coreworkso 7 Flex RT-PCR System. Performing Lab [facility] 11/11/2020 15:24 EST [facility] Swab 11/10/2020 9:19 EST 11/10/2020 18:00 EST Provider Outr Resulting Lab MICROBIOLOGY - GENERAL ORDERABLES [facility] [address] [place] [address] documented in this encounter Visit Diagnoses Not on filedocumented in this encounter Care Teams Barrel Lathe Operator Relationship Specialty Start Date End Date Dominic Restrepo MD [address] [place] [address] PCP - General 01/20/20 documented as of this encounter
--- OUTSIDE RECORDS SUMMARY | 2024-06-09 09:22 | XMS_ITS | Encounter Summary ---
Author Organization [facility] Address [address] [place] [address] Care Team Providers Care Vessel Engineer Name Role Phone Dominic Restrepo MD Primary Care Provider [phone] Encounter Details Date Type Department Care Team (Late st Contact Info) Description 05/09/2020 Lab Requisition [facility] Pathology & Laboratory Medicine - [address] [address] Lewis Henderson MD [address] [place] [address] [place], [place] [address] Encounter for other general examination Social History [...] sections x3 examined (A3, A4). 05/13/2020 16:04 [facility] Diagnosis Comment Immunoperoxidase stains were [...] performance characteristics have been determined by [facility] and/or by the referring laboratory. The [...] to perform high complexity clinical laboratory testing. Insole Channeler slides of this case were reviewed at the intradepartmental consultation conference (NF, ). 05/13/2020 16:04 [facility] Attestation There was significant resident/fellow involvement in the diagnostic evaluation of this case. By the signature below, the attending physician certifies that they have personally conducted a gross and/or microscopic examination of the described specimens and rendered or confirmed the above diagnosis. 05/13/2020 16:04 [facility] at 1604 Synoptic COLON AND [...] ?? 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 A. Received [...] A8- Distal surgical margin 05/13/2020 16:04 EDT [facility] Resident/Fell ow: Wally Herron MD 05/13/2020 16:04 EDT [facility] Performing Lab [facility] 05/13/2020 16:04 EDT [facility] Scanned Images 05/13/2020 16:04 EDT [facility] Tissue ENTIRE SIGMOID COLON / Unknown 05/09/2020 12:30 EDT 05/09/2020 23:38 EDT Lewis Henderson MD PATHOLOGY ORDERA ALYSHA [facility] [address] [place] [address] documented in this encounter Visit Diagnoses Diagnosis Encounter for other general examination documented in this encounter Care Teams Vessel Engineer Relationship Specialty Start Date End Date Dominic Restrepo MD [address] [place] [id number] PCP - General 01/20/20 documented as of this encounter
--- OUTSIDE RECORDS SUMMARY | 2024-06-09 09:22 | XMS_ITS | Encounter Summary ---
Author Organization [facility] Address [address] [place] [address] Care Team Providers Care Garment Sorter Name Role Phone Unknown, Provider Primary Care Provider Encounter Details Date Type Department Care Team (Latest Contact Info) Description 11/30/2013 9:33 EST - 11/30/2013 23:59 [facility] Hospital Encounter [address] [address] Unknown, Provider, Discharge Disposition: Home or Self [...] on filedocumented in this encounter Care Teams Garment Sorter Relationship Specialty Start Date End Date Unknown, Provider, PCP - General 02/08/10 12/02/13 documented as of this encounter
--- OUTSIDE RECORDS SUMMARY | 2024-06-09 09:22 | XMS_ITS | Encounter Summary ---
Author Organization [facility] Address [address] [place] [address] Care Team Providers Care Hvac Instructor Name Role Phone Dominic Restrepo MD Primary Care Provider [phone] Encounter Details Date Type Department Care Team (Late st Contact Info) Description 02/04/2020 Lab Requisition [facility] Pathology & Laboratory Medicine - [address] [address] Tamir Osuna MD [address] [place] [phone] Encounter for other general examination Social [...] comment and synoptic report. 02/10/2020 19:43 EDT [facility] at 1943 Attestation By the signature below, the attending physician certifies that they have 1) personally conducted a gross and/or microscopic examination of the described specimen(s), and/or personally interpreted the results of laboratory testing of the described specimen(s), and 2) personally rendered or confirmed the above diagnosis. 02/10/2020 19:43 [facility] at 1943 Diagnosis Comment A HMWK stain shows no evidence of invasion into the lamina propria. Supervisor Cap And Hat Production slides of this case were reviewed at the intradepartmental consultation conference. Immunoperoxidase stains were performed on this case to further characterize the lesion. ANTIBODY(CLONE)(BLO CK):RESULT Keratin [id number] (34BE12, Drayton) (A2): negative for invasion into lamina propria. [...] performance characteristics have been determined by [facility] and/or by the referring laboratory. [...] high complexity clinical laboratory testing. 02/10/2020 19:43 [facility] Synoptic URINARY BLADDER: Biopsy and [...] Epithelial Lesions: ?None identified 02/10/2020 19:43 EDT [facility] Clinical History Bladder tumor 02/10/2020 19:43 EDT [facility] Gross Description A. Received in formalin labelled with proper patient identification (initials G, D) and bladder tumor is a 1.6 x 1.4 x 0.5 cm aggregate of mednia cauterized, friable tissue fragments. Entirely submitted in A1-A3. 02/05/2020 7:48 02/10/2020 19:43 EDT [facility] Scanned Images 02/10/2020 19:43 EDT [facility] Tissue URINARY BLADDER BIOPSY SPECIMEN / Unknown 02/04/2020 11:14 EDT 02/04/2020 16:17 EDT Tamir Osuna MD PATHOLOGY ORDERAB LES [facility] [address] [place] [address] documented in this encounter Visit Diagnoses Diagnosis Encounter for other general examination documented in this encounter Care Teams Hvac Instructor Relationship Specialty Start Date End Date Dominic Restrepo MD [address] [place] [id number] PCP - General 01/20/20 documented as of this encounter
--- OUTSIDE RECORDS SUMMARY | 2024-06-09 09:22 | XMS_ITS | Encounter Summary ---
Author Organization [facility] Address [address] [place] [address] Care Team Providers Care Salad Maker Name Role Phone Unknown, Provider Primary Care Provider Encounter Details Date Type Department Care Team (Late st Contact Info) Description 05/12/2002 Results Only [facility] [address] [place] [address] Adis Jordan MD [address] [place] [phone] Social History Tobacco Use Types Packs/Day Years [...] when reading/interpreti ng unformatted reports. Name: ? TRUNGSACHIKATALINA ManningNIS ? Accession #: ? [id number] ? : ? 1950 (Age: 51) ??M [...] are submitted entirely in one cassette. (Dr. Dominguez)/[facility] End of Report [facility] 05/12/2002 05/12/2002 15: 28 EDT Adis Jordan MD PATHOLOGY ORDERABLES [facility] [address] [place] [address] documented in this encounter Visit Diagnoses Not on filedocumented in this encounter Care Teams Salad Maker Relationship Specialty Start Date End Date Unknown, Provider, PCP - General 02/08/10 12/02/13 documented as of this encounter
--- OUTSIDE RECORDS SUMMARY | 2024-06-09 09:22 | XMS_ITS | Encounter Summary ---
Author Organization [facility] Address [address] [place] [address] Care Team Providers Care Project Manager Retail Name Role Phone Dominic Restrepo MD Primary Care Provider [phone] Encounter Details Date Type Department Care Team (Late st Contact Info) Description 09/19/2020 Lab Requisition [facility] Pathology & Laboratory Medicine - [address] [address] Tamir Osuna MD [address] [place] [phone] Encounter for other general examination Social [...] Name Priority Date/Time Associated Diagnosis Comments NON SHADE BANDER/FNA CYTOLOGY Today 09/16/2020 11:15 EST Encounter for other general examination documented in this encounter Results * NON SHADE BANDER/FNA CYTOLOGY (09/16/2020 11:15 EST) Final Diagnosis URINE, VOIDED, CYTOLOGIC EVALUATION: - Negative for high grade urothelial carcinoma. - Acute inflammation and bacteria noted. 09/20/2020 9:11 EST [facility] Attestation There was significant resident/fellow involvement in the diagnostic evaluation of this case. By the signature below, the attending physician certifies that they have personally conducted a gross and/or microscopic examination of the described specimens and rendered or confirmed the above diagnosis. 09/20/2020 9:11 [facility] at 0911 Clinical History Bladder cancer 09/20/2020 9:11 [facility] Gross Description A. 120ccs of clear yellow fluid, of which 60ccs are composed of fixative, were received and processed by selective cellular enhancement technique. 09/20/2020 9:11 [facility] Resident/Dm w: Shilpi Velazco MD 09/20/2020 9:11 [facility] Performing Lab [facility] 09/20/2020 9:11 [facility] Scanned Images 09/20/2020 9:11 [facility] Urine VOIDED URINE SPECIMEN / Unknown 09/16/2020 11:15 EST 09/19/2020 6:38 EST Tamir Osuna MD PATHOLOGY ORDERAB LES [facility] [address] [place] [address] documented in this encounter Visit Diagnoses Diagnosis Encounter for other general examination documented in this encounter Care Teams Project Manager Retail Relationship Specialty Start Date End Date Dominic Restrepo MD [address] [place] [address] PCP - General 01/20/20 documented as of this encounter
--- OUTSIDE RECORDS SUMMARY | 2024-06-09 09:22 | XMS_ITS | Encounter Summary ---
Author Organization [facility] Address [address] [place] [address] Care Team Providers Care Foundry Finisher Name Role Phone Unknown, Provider Primary Care Provider [phone] Encounter Details Date Type Department Care Team (Late st Contact Info) Description 11/30/2013 Results Only [facility] [phone] Karlene Bose MD [address] [phone] Social History Tobacco Use Types Packs/Day Years [...] when reading/interpreti ng unformatted reports. Name: ? BRANDYNICOLASEUGENE Boo ? Accession #: ? [id number] ? : ? 1950 (Age: 62) ??M [...] Bose MD PATHOLOGY ORDERABLES [facility] [address] [place] [address] documented in this encounter Visit Diagnoses Not on filedocumented in this encounter Care Teams Foundry Finisher Relationship Specialty Start Date End Date Unknown, Provider, PCP - General 02/08/10 12/02/13 documented as of this encounter
--- OUTSIDE RECORDS SUMMARY | 2024-06-09 09:22 | XMS_ITS | Encounter Summary ---
Author Organization [facility] Address [address] [place] [address] Care Team Providers Care Secondary Teacher Name Role Phone Dominic Restrepo MD Primary Care Provider [phone] Encounter Details Date Type Department Care Team (Late st Contact Info) Description 01/04/2021 Lab Requisition [facility] Pathology & Laboratory Medicine - [address] [address] Lewis Henderson MD [address] [place] [address] [place], [place] [phone] Encounter for other general examination Social History [...] xanthogranulomatous inflammation. - Cholelithiasis. 01/09/2021 11:[address] [facility] Attestation By the signature below, the attending physician certifies that they have 1) personally conducted a gross and/or microscopic examination of the described specimen(s), and/or personally interpreted the results of laboratory testing of the described specimen(s), and 2) personally rendered or confirmed the above diagnosis. 01/09/2021 11:[address] [facility] at 1127 Clinical History Chronic cholecystitis with calculus 01/09/2021 11:[address] [facility] Gross Description A. Received in [...] 2.4 x 0.7 cm) is present. Three hr representative sections and the en face cystic duct margin are submitted in A1 and A2. KAY BRIONES(ASCP) 01/05/2021 9:18 01/09/2021 11:[address] [facility] Performing Lab [facility] 01/09/2021 11:[address] [facility] Scanned Images 01/09/2021 11:[address] [facility] Tissue ENTIRE GALLBLADDER / Unknown 01/04/2021 8:57 EDT 01/04/2021 15:26 EDT Lewis Henderson MD PATHOLOGY ORDERA ALYSHA [facility] [address] [place] [address] documented in this encounter Visit Diagnoses Diagnosis Encounter for other general examination documented in this encounter Care Teams Secondary Teacher Relationship Specialty Start Date End Date Dominic Restrepo MD [address] [place] [address] PCP - General 01/20/20 documented as of this encounter
--- OUTSIDE RECORDS SUMMARY | 2024-06-09 09:22 | XMS_ITS | Encounter Summary ---
Author Organization [facility] Address [address] [place] [address] Care Team Providers Care Survey Cad Technician Name Role Phone Unavailable Primary Care Provider Unavailabl e Encounter Details Date Type Department Care Team (Late st Contact Info) Description 02/07/2010 Results Only [facility] Services - [facility] [address] [place] [phone] Lorraine Burger MD [address] [place] [id number] Social History Tobacco Use Types Packs/Day Years [...] ? EUGENE PURVIS ? Accession #: ? [id number] ? : ? 1950 (Age: 59) ??M [...] MD PATHOLOGY ORDERABLES [facility] [address] [place] [address] documented in this encounter Visit Diagnoses Not on filedocumented in this encounter
--- NOTE | 2024-06-09 09:23 | ED.GENADUL_ITS ---
Discharge Plan Disposition Patient Disposition: Home Discharge Details Clinical Impression: Altered mental state Primary Care Provider: David Massey ED Provider: Brittany Corrales Home Meds and New Rx's Prescriptions: No Action levetiracetam 500 mg tablet 500 mg PO BID Qty: 180 3RF metformin 1,000 mg tablet 1,000 mg PO BID atorvastatin 40 mg tablet 40 mg PO DAILY metoprolol tartrate 50 mg tablet 50 mg PO BID Eliquis 5 mg tablet 5 mg PO BID Qty: 180 3RF acetaminophen 325 mg tablet 650 mg PO Q4H PRN (DME) pen needle, diabetic [BD Ultra-Fine Claribel Pen Needle] 32 gauge x 5/32 needle See Rx Instructions .Route Rx Instructions: As directed (DME) Dexcom G7 Incinerator Plant General Supervisor Misc See Rx Instructions .Route Rx Instructions: As directed (DME) Dexcom G7 Sensor Device See Rx Instructions .Route Rx Instructions: As directed docusate sodium 100 mg capsule 100 mg PO BID PRN finasteride 5 mg tablet 5 mg PO DAILY lorazepam 0.5 mg tablet 0.5 mg PO QHS PRN nystatin [Nystop] 100,000 unit/gram powder 1 applic topical BID (DME) blood sugar diagnostic Strip See Rx Instructions .Route Rx Instructions: As directed (DME) lancets 33 gauge misc See Rx Instructions .Route Rx Instructions: As directed (DME) OneTouch Ultra Test Strip See Rx Instructions .Route Rx Instructions: As directed phenazopyridine 200 mg tablet 200 mg PO TID PRN Rx Instructions: for painful urination triamcinolone acetonide 0.1 % ointment 1 applic topical DAILY furosemide 20 mg tablet 20 mg PO DAILY Patient Comments: Take 1 tablet by mouth every morning Dr. Cuellar- Cardiology lisinopril 5 mg tablet 5 mg PO DAILY diltiazem HCl 120 mg capsule,extended release 24hr 120 mg PO BID levothyroxine 50 mcg tablet 50 mcg PO DAILY Patient Comments: Take 1 tablet by mouth once a day Take on an empty stomach 30 minutes before breakfast or other medications ciprofloxacin HCl 500 mg tablet 500 mg PO BID Qty: 20 0RF Discharge Instructions Additional Instructions: * WORK UP IS UNREMARKABLE FOR ANY ACUTE FINDINGS * PLEASE FOLLOW BACK UP WITH UROLOGY FOR FURTHER MANAGEMENT OF CATHETER * MANUFACTURING MANAGER WILL FOLLOW UP WITH YOU REGARDING HOME SERVICES Discharge Data Discharge Date/Time-TO BE ENTERED AT DEPARTURE: 06/09/24 12:18 Discharge Physician: Brittany Corrales [facility] General Date/Time Provider Initiated Documentation: 06/09/24 09:14 . Limitations to Documentation: altered mental status . Information obtained by: family and RN/MD . HPI Narrative: 73-year-old gentleman with past medical history including CVA, aphasia, seizure disorder, chronic anticoagulation presents for evaluation of altered mental status . Patient was sent down from urology clinic to the emergency department for further evaluation. He presented to clinic today for a scheduled appointment that had been rescheduled from August. The patient is unable to provide any history. Per urology clinic, the patient's son kept saying that he was complaining of pain down there and that he just was not himself. The patient was recently seen in the emergency department and treated for a possible urinary tract infection because he has a chronic indwelling Thornton catheter. The son dropped him off in the emergency department and had to be called back to provide assistance with patient care. He states that he is not his normal self but is unable to say why he he feels this way. He states he is different every day, he has no normal. The son states that today he was complaining of pain in his genital area. But otherwise he has not noted any trauma fever chills, change in appetite. Related Data Home Medications ?Medication ?Instructions ?Recorded ?Confirmed furosemide 20 mg tablet 20 mg PO DAILY 06/01/21 06/09/24 metformin 1,000 mg tablet 1,000 mg PO BID 01/23/22 06/09/24 levothyroxine 50 mcg tablet 50 mcg PO DAILY 12/03/22 06/09/24 atorvastatin 40 mg tablet 40 mg PO DAILY 12/31/22 06/09/24 metoprolol tartrate 50 mg tablet 50 mg PO BID 04/29/23 06/09/24 apixaban 5 mg tablet (Eliquis) 5 mg PO BID #180 tabs 07/23/23 06/09/24 levetiracetam 500 mg tablet 500 mg PO BID #180 tabs 11/11/23 06/09/24 lisinopril 5 mg tablet 5 mg PO DAILY 01/28/24 06/09/24 acetaminophen 325 mg tablet 650 mg PO Q4H PRN 02/21/24 06/09/24 blood sugar diagnostic 02/21/24 06/09/24 blood sugar diagnostic (OneTouch 02/21/24 06/09/24 Ultra Test strips) blood-glucose meter,continuous 02/21/24 06/09/24 (Dexcom G7 Incinerator Plant General Supervisor) blood-glucose sensor (Dexcom G7 02/21/24 06/09/24 Sensor device) docusate sodium 100 mg capsule 100 mg PO BID PRN 02/21/24 06/09/24 finasteride 5 mg tablet 5 mg PO DAILY 02/21/24 06/09/24 lancets 33 gauge 02/21/24 06/09/24 lorazepam 0.5 mg tablet 0.5 mg PO QHS PRN 02/21/24 06/09/24 nystatin 100,000 unit/gram topical 1 applic topical BID 02/21/24 06/09/24 powder (Nystop) pen needle, diabetic 32 gauge x 02/21/24 06/09/24 (BD Ultra-Fine Claribel Pen Needle) phenazopyridine 200 mg tablet 200 mg PO TID PRN 02/21/24 06/09/24 triamcinolone acetonide 0.1 % 1 applic topical DAILY 02/21/24 06/09/24 topical ointment diltiazem HCl 120 mg 120 mg PO BID 02/24/24 06/09/24 capsule,extended release 24 hr ciprofloxacin HCl 500 mg tablet 500 mg PO BID #20 tabs 06/07/24 06/09/24 Previous Rx's ?Medication ?Instructions ?Recorded apixaban 5 mg tablet (Eliquis) 5 mg PO BID #180 tabs 07/23/23 levetiracetam 500 mg tablet 500 mg PO BID #180 tabs 11/11/23 ciprofloxacin HCl 500 mg tablet 500 mg PO BID #20 tabs 06/07/24 Allergies Allergy/AdvReac Type Severity Reaction Status Date / Time No Known Allergies Allergy Verified 06/09/24 09:23 General Stated Complaint: AMS/LOC TREVOR: 3 Exam Narrative Exam Narrative: Review of Systems: All systems reviewed & are unremarkable except as noted in HPI and below Well-developed, no acute distress will only say i want to go home NCAT RRR Unlabored respiratory effort, CTAB Nondistended abdomen thornton catheter in place Extremities w/o edema No rashes or lesions. able to state name, date, follow simple commands. perseverates on going home. redirectable. no unilateral weakness appreciated Course Vital Signs Vital signs: Vital Signs Temperature 36.6 C 06/09/24 09:10 Pulse 106 H 06/09/24 09:10 Respiratory Rate 17 06/09/24 09:10 Blood Pressure 138/72 06/09/24 09:10 Pulse Oximetry 99 06/09/24 09:10 Temperature 36.6 C 06/09/24 09:10 Temperature Source Temporal Artery Scan 06/09/24 09:10 Pulse 106 H 06/09/24 09:10 Respiratory Rate 17 06/09/24 09:10 Blood Pressure 138/72 06/09/24 09:10 Blood Pressure Position Sitting 06/09/24 09:10 Pulse Oximetry 99 06/09/24 09:10 Oxygen Delivery Method Room Air 06/09/24 09:10 Oxygen Flow Rate 0 06/09/24 09:10 Pain Level 0 06/09/24 09:10 Medical Decision Making Emergent evaluation of possible altered mental status. The history is very limited and difficult to obtain from the patient and the son. The son seems aggravated about being here in after request to stay with the patient in the emergency department. I do feel his presence is helpful to redirect the patient, keep him calm and get the appropriate testing completed. Although he is not providing me much information to go on when he states he is just not himself. There does not appear to be any sign of trauma, so I doubt this as an etiology. Vital signs are stable, no SIRS criteria, doubt infectious etiology. The patient does have a chronic indwelling Thornton catheter was recently evaluated for this in the emergency department. His cultures have resulted today. There is mixed red present which is likely biofilm. The patient is not displaying any focal neurologic deficit, so the lower suspicion for an acute intracranial process but given his history of CVA, I will get a head CT to evaluate this. Will get lab work to evaluate for metabolic cephalopathy or electrolyte derangement. I reviewed the medical record and per the most recent palliative care note 1 month ago, there seemed to be some discussion regarding private home care or nursing facility placement. Documentation indicates that the son is burning out as a caregiver and needs more help will involve care management and this to determine the current standing of these issues. I have reviewed the lab work. There is mild leukocytosis, but no fever or other signs concerning for possible infectious etiology. Anemia is stable at his baseline. There is some mild hypokalemia that was repleted orally. He has some slight worsening of his baseline renal disease. Though no significant uremia to suggest an encephalopathy. Urinalysis was repeated today. Some mild white blood cells, but otherwise no significant signs of infection based on the culture that resulted today. Alcohol and drug screening are negative. And imaging is unremarkable for any acute etiology. The patient has been pleasant, cooperative and not showing any signs of significant mental status change. I did discuss the case with care management and they will follow-up to ensure that the processes are in place as needed for the son. At this time I see no indication for hospitalization or continued emergent workup and the patient is discharged with his son in good condition. Quality:SDOH Health Related Social Needs: No Data to Display PFSH All Active Problems (Updated 06/09/24 @ 11:39 by Brittany Corrales MD) UTI (urinary tract infection) due to urinary indwelling Thornton catheter (Acute) Atrial fibrillation with RVR (Acute) Altered mental state (Acute) Sepsis (Acute) Seizure (Acute) New onset seizure without head trauma (Acute) Global aphasia (Acute) Stroke (Chronic) Dysplastic colon polyp (Acute) Urothelial carcinoma (Acute) 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) Screening for colon cancer (Acute) Recurrent nephrolithiasis (Acute) Medical History UTI (urinary tract infection) Dystrophia unguium Edema, lower extremity Candidiasis of skin Peripheral venous insufficiency Lower urinary tract obstructive syndrome Weakness of both lower extremities Uses self-applied continuous glucose monitoring device Cognitive decline Cerebral infarction Hyperbilirubinemia Cardiomegaly Partial epilepsy 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 Atrial fibrillation with rapid ventricular response Obstructive sleep apnea syndrome (08/10/08) cpap Obstructive uropathy Peripheral neuropathy Venous insufficiency History of depression Iron deficiency CARLOS A on CPAP Hypertension Type 2 diabetes mellitus Dementia Ulcer of [place] limited to breakdown of skin Acute kidney injury superimposed on chronic kidney disease Creatinine elevation Elevated WBCs Hyperglycemia Ureterolithiasis Diabetic leg ulcer Phimosis Venous insufficiency (chronic) (peripheral) Bladder cancer Gross hematuria Chronic venous stasis Noncompliance Anxiety (08/10/08) Asbestosis (08/10/08) Asthma (07/08/12) pt. denies this Carpal tunnel syndrome Olecranon bursitis Peripheral neuralgia Atopic conjunctivitis (10/22/13) Benign prostatic hyperplasia (02/25/13) Depressive disorder (02/25/13) Diabetes mellitus (02/25/13) Essential hypertension (06/24/13) Frequency of micturition (01/03/16) Glaucoma (10/22/13) B/L Hyperlipidemia (02/25/13) Hypermetropia (10/22/13) Hypogonadism Idiopathic peripheral neuropathy Low back pain (08/10/08) Nuclear senile cataract (10/22/13) Obesity (08/10/08) Aviva-en-y 02/2014 Osteoarthritis (08/10/08) BILATERAL KNEE replacements Peptic reflux disease (08/10/08) Presbyopia (10/22/13) Pterygium (08/10/08) LEFT EYE Regular astigmatism (10/22/13) Sensorineural hearing loss, bilateral (09/05/17) Tubular adenoma Tubular and tubulovillous adenoma 2011 --suggested repeat 2017 Umbilical hernia (08/18/12) Urgency of urination (01/03/16) Varicose veins of lower extremity (08/10/08) Urinary tract infection Chronic anticoagulation Atrial fibrillation Surgical History S/P laparoscopic-assisted sigmoidectomy Hx of total knee arthroplasty Pt reports he has had a left and right knee repacement. Pt doesnt remember when and thinks he had it done at [facility] Status post cholecystectomy S/P cholecystectomy (~01/04/21) acute hemorrhagic cholecystitis and xanthogranulomatous inflammation S/P partial colectomy (~05/09/20) History of transurethral destruction of bladder lesion S/P colonoscopy Haddad-2011- tubular and tubulovillous polyps Santiago- 2019- sessile serrated with low grade dysplacia, tubullovillous with high grade dysplacia and tubular adenomas Status post abdominoplasty (05/23/16) Status post tonsillectomy Status post total knee replacement B/L Vasectomy Aviva-en-y surgery for weight loss Ronnell Fundoplication Repair of umbilical hernia Laparoscopic Family History Mother Cancer Father Heart disease Sister Cancer Sister No problems noted. Brother Cancer Brother No problems noted. Brother No problems noted. Son No problems noted. Son No problems noted. Son No problems noted. Social History Smoking/Tobacco Use Status: Never Second Hand Exposure: Yes Smoking risk assessment performed?: Yes Alcohol Intake: never Drug use: Never Substance use type: does not use Caregiver/Support person: No Household members: other Details: son Housing: house Communication Needs: None Education Level: high school Do you need help understanding health information?: Never Pets and animals: No Do you think of yourself as: straight/heterosexual Current gender identity: male What is your relationship status?: How often do you talk on the phone with friends or family?: once per week How often do you get together with friends or relatives?: decline to answer How often do you attend religion or yarsanism services?: decline to answer Do you belong to any clubs or organized social groups?: no Panel score (0-1 are the most socially isolated patients): 0 What type of physical activity do you participate in: walking Duration: 15-30 minutes/day Frequency: 1-2 times per week Velia/Hoahaoism: Islam Special velia needs: No Seatbelt use: always Helmet use: No Drive intox or ride w/intox motor driver: No Do you feel safe at home: Yes Do you feel safe in your relationship?: Yes
[2024-06-09 09:25] VITALS: BP 138/72; PULSE 106; RESP 17; TEMP 36.6; O2SAT 99
[2024-06-09 09:49] LABS: Abs Immature Grans 0.08 10^3/uL (0.0-0.06); Absolute Basophil Count 0.03 10^3/uL (0.0-0.2); Absolute Lymphocyte Count 0.63 10^3/uL (1.2-3.4); Basophils % 0.3 %; Eosinophils % 0.9 %; HCT 33.9 % (40.0-50.0); HGB 10.5 g/dL (13.5-17.5); Immature Grans % 0.7 %; Lymphocytes % 5.4 %; MCH 25.9 pg (27.0-33.0); MCV 84 fL (80-95); MPV 8.6 fL (8.0-11.0); Monocytes % 5.8 %; Neutrophils % 86.9 %; Platelet Count 263 10^3/uL (130-400); RBC 4.05 10^6/uL (4.36-5.78); RDW 15.4 % (11.8-14.1); WBC 11.65 10^3/uL (4.4-10.8)
[2024-06-09 09:55] LABS: Bilirubin Negative (Negative); Blood Moderate (Negative); Clarity Sl Cloudy (Clear); Glucose Negative (Negative); Ketones Negative (Negative); Leukocyte Esterase Small (Negative); Nitrite Negative (Negative); Specific Gravity 1.025 (1.005-1.025); Urobilinogen 0.2 mg/dL (Up to 0.2)
[2024-06-09 09:59] LABS: Absolute Monocyte Count 0.68 10^3/uL (0.1-0.8); Absolute Neutrophil Count 10.12 10^3/uL (1.2-6.7)
[2024-06-09 10:05] LABS: Epithelial Cells Rare HPF (Negative); WBC 20-50 HPF (0-5)
[2024-06-09 10:06] LABS: Bacteria Few HPF (Negative); C & S Indicated? Yes; Crystals Few Amorphous HPF (Negative); Mucus Negative (Negative); Other Cells Rare Renal (Negative)
[2024-06-09 10:08] LABS: *AMPHETAMINES SCREEN URINE Negative (Negative); *BARBITURATES SCREEN URINE Negative (Negative); *BENZODIAZEPINES SCREEN URINE Negative (Negative); Cannabinoids THC Negative (Negative); Cocaine Screen,Urine Negative (Negative); METHADONE URINE SCREEN Negative (Negative); OPIATES URINE SCREEN Negative (Negative); Tricyclic Antidepressants Negative (Negative)
[2024-06-09 10:19] LABS: ALT 21 U/L (16-63); AST 17 U/L (15-37); Alkaline Phosphatase 97 U/L (46-116); Anion Gap 12.5 mmol/L (3-11); BUN 48 mg/dL (7-18); CO2 22.5 mmol/L (21.0-32.0); CREATININE 2.2 mg/dL (0.70-1.30); Calcium 8.7 mg/dL (8.5-10.1); Chloride 103 mmol/L (98-107); Estimated GFR 30.66 (mL/min/1.73m2); Glucose 152 mg/dL (74-106); Magnesium 1.8 mg/dL (1.8-2.4); Potassium 3.3 mmol/L (3.5-5.1); Sodium 138 mmol/L (136-145); TSH (W/Ref FT4) 3.05 uIU/mL (0.36-3.74); Total Protein 7.4 g/dL (6.4-8.2); Troponin I < 50 ng/L (< or =60)
[2024-06-09 10:20] LABS: ETHANOL BLOOD < 3.0 mg/dL (<10)
[2024-06-09] MEDS: Potassium Chloride Liquid 20 MEQ PKT 40 MEQ PO (10:56)
[2024-06-09 10:58] LABS: Troponin I < 50 ng/L (< or =60)
== END 2024-06-09 12:18 | disposition home or self-care (01) ==
PROVIDERS: Emergency Provider Emergency Medicine; PCP Family Medicine
DX: R41.82 Altered mental status, unspecified (principal); I48.91 Unspecified atrial fibrillation; I10 Essential (primary) hypertension; Z86.73 Personal history of transient ischemic attack (TIA), and cerebral infarction without residual deficits; Z79.01 Long term (current) use of anticoagulants; Z96.0 Presence of urogenital implants
CPT/HCPCS: 36415; 80053; 80307; 82962; 93005; 99285; 70450; 71045; 80177; 80320; 81003; 81015; 83735; 84443; 84484; 85025; 87086; 93010; 99284

== ENCOUNTER 2024-08-05 20:52 | Emergency (ER) | payer MEDICARE, SELFPAY ==
[2024-08-05 20:56] VITALS: BP 193/116; PULSE 119; RESP 20; O2SAT 98
[2024-08-05 21:02] VITALS: BP 193/116; PULSE 119; RESP 20; O2SAT 98
--- NOTE | 2024-08-05 21:14 | W.ED.GENAD ---
Discharge Plan Disposition Patient Disposition: Home Condition: Stable Discharge Details Clinical Impression: Thornton catheter problem Primary Care Provider: David Massey ED Provider: Buzz Craig Home Meds and New Rx's Prescriptions: Continued levetiracetam 500 mg tablet 500 mg PO BID Qty: 180 3RF metformin 1,000 mg tablet 1,000 mg PO BID polyethylene glycol 3350 [Miralax] 17 gram/dose powder 17 g PO DAILY PRN atorvastatin 40 mg tablet 40 mg PO DAILY metoprolol tartrate 50 mg tablet 50 mg PO BID (DME) pen needle, diabetic [BD Ultra-Fine Claribel Pen Needle] 32 gauge x 5/32 needle See Rx Instructions .Route Rx Instructions: As directed (DME) Dexcom G7 Tax Compliance Manager Misc See Rx Instructions .Route Rx Instructions: As directed (DME) Dexcom G7 Sensor Device See Rx Instructions .Route Rx Instructions: As directed nystatin [Nystop] 100,000 unit/gram powder 1 applic topical BID (DME) blood sugar diagnostic Strip See Rx Instructions .Route Rx Instructions: As directed (DME) lancets 33 gauge misc See Rx Instructions .Route Rx Instructions: As directed (DME) OneTouch Ultra Test Strip See Rx Instructions .Route Rx Instructions: As directed Eliquis 5 mg tablet 5 mg PO BID Qty: 180 3RF furosemide 20 mg tablet 20 mg PO DAILY Patient Comments: Take 1 tablet by mouth every morning Dr. Cuellar- Cardiology lisinopril 5 mg tablet 5 mg PO DAILY diltiazem HCl 120 mg capsule,extended release 24hr 120 mg PO BID levothyroxine 50 mcg tablet 50 mcg PO DAILY Patient Comments: Take 1 tablet by mouth once a day Take on an empty stomach 30 minutes before breakfast or other medications Discharge Instructions Instructions: How to Care for Your Thornton Catheter Additional Instructions: You were seen in the emergency department for your father's Thornton catheter problem, I do plan to have 1 changed out by home health tomorrow, we replaced it, he is acting himself and is nontoxic vitals and no fever, please return for any emergent concerns including acute behavioral changes, fever, signs of UTI or urinary retention. Referrals: David Massey MD [Primary Care Provider] - Discharge Data Discharge Date/Time-TO BE ENTERED AT DEPARTURE: 08/05/24 22:33 HPI General Date/Time Provider Initiated Documentation: 08/05/24 21:14. HPI Narrative: 73 year-old male presents to ED today by POV/ambulating with his son with a chief complaint of pulled out his thornton catheter- has had intermittent catheters for a long time due to UTI/urinary retention- was due for a thornton change by HomeHealth tomorrow. Quality described as no complaint, denies abdominal tenderness, per son he is acting his baseline which is chronic Alzheimer's, denies fevers, no radiation to chest pain, shortness of breath, flank pain, poor appetite, fever. Severity is described as 0/10. Palliating factors include nothing specific. Provoking factors include nothing specific. Patient is anticoagulated. Related Data Home Medications ?Medication ?Instructions ?Recorded ?Confirmed furosemide 20 mg tablet 20 mg PO DAILY 06/01/21 08/05/24 metformin 1,000 mg tablet 1,000 mg PO BID 01/23/22 08/05/24 levothyroxine 50 mcg tablet 50 mcg PO DAILY 12/03/22 08/05/24 atorvastatin 40 mg tablet 40 mg PO DAILY 12/31/22 08/05/24 metoprolol tartrate 50 mg tablet 50 mg PO BID 04/29/23 08/05/24 levetiracetam 500 mg tablet 500 mg PO BID #180 tabs 11/11/23 08/05/24 lisinopril 5 mg tablet 5 mg PO DAILY 01/28/24 08/05/24 blood sugar diagnostic 02/21/24 08/05/24 blood sugar diagnostic (OneTouch 02/21/24 08/05/24 Ultra Test strips) blood-glucose meter,continuous 02/21/24 08/05/24 (Dexcom G7 Tax Compliance Manager) blood-glucose sensor (Dexcom G7 02/21/24 08/05/24 Sensor device) lancets 33 gauge 02/21/24 08/05/24 nystatin 100,000 unit/gram topical 1 applic topical BID 02/21/24 08/05/24 powder (Nystop) pen needle, diabetic 32 gauge x 02/21/24 08/05/2432 (BD Ultra-Fine Claribel Pen Needle) diltiazem HCl 120 mg 120 mg PO BID 02/24/24 08/05/24 capsule,extended release 24 hr polyethylene glycol 3350 17 17 g PO DAILY PRN 06/25/24 08/05/24 gram/dose oral powder (Miralax) apixaban 5 mg tablet (Eliquis) 5 mg PO BID #180 tabs 07/28/24 08/05/24 Previous Rx's ?Medication ?Instructions ?Recorded levetiracetam 500 mg tablet 500 mg PO BID #180 tabs 11/11/23 apixaban 5 mg tablet (Eliquis) 5 mg PO BID #180 tabs 07/28/24 Allergies Allergy/AdvReac Type Severity Reaction Status Date / Time No Known Allergies Allergy Verified 08/05/24 21:01 General Stated Complaint: Urinary TREVOR: 3 Review of Systems All systems reviewed & are unremarkable except as noted in HPI and below Exam Narrative Exam Narrative: GENERAL APPEARANCE: Well-nourished, non-toxic, awake and alert, atraumatic, no acute distress. SKIN: Warm, pink, dry, intact, without rashes/lesions/ulcerations. HEAD: Normocephalic, atraumatic, normal hair distribution for gender/age. EYES: Normal conjunctiva, no exudates on lids/lashes. ENT: Nares patent, no circumoral cyanosis, no facial swelling NECK: Supple, trachea midline, painless cervical ROM. LUNGS/CHEST: Lungs CTA bilaterally, non-labored respirations, normal A/P diameter, symmetrical expansion, no chest wall deformity HEART (CV/PV): Regular rate and rhythm without murmur, no peripheral edema, no JVD. ABDOMEN: Soft, non-distended, no guarding, no tenderness, no CVA tenderness to percussion bilaterally. MSK: Normal ROM, no swelling/deformity to bilateral UEs or LEs, moving all extremities without weakness, no cyanosis, spine midline without tenderness, normal curvature. NEURO: Mental Status AAOx4 - alert to person, place, time, events No facial droop, no forehead involvement. Motor: No focal weakness - strength 5/5 in bilateral UEs and LEs, proximal and distal, symmetric. Sensory: sensation intact to light touch globally. Gait normal: patient ambulated without ataxia into ED room. PSYCH: euthymic, cooperative, pleasant, appropriate speech Course Vital Signs Vital signs: Vital Signs Pulse 119 H 08/05/24 20:56 Respiratory Rate 20 08/05/24 20:56 Blood Pressure 193/116 H 08/05/24 20:56 Pulse Oximetry 98 08/05/24 20:56 Pulse 119 H 08/05/24 21:02 Respiratory Rate 20 08/05/24 21:02 Respiratory Effort Normal 08/05/24 21:02 Blood Pressure 193/116 H 08/05/24 21:02 Blood Pressure Position Sitting 08/05/24 21:02 Pulse Oximetry 98 08/05/24 21:02 Oxygen Delivery Method Room Air 08/05/24 21:02 Oxygen Flow Rate 0 08/05/24 20:56 Medical Decision Making This dictation utilizes [id number] dictation software and may contain unedited grammatical errors. 73 year-old male presents to ED today by POV/ambulating with his son with a chief complaint of pulled out his thornton catheter- has had intermittent catheters for a long time due to UTI/urinary retention- was due for a thornton change by HomeHealth tomorrow. Quality described as no complaint, denies abdominal tenderness, per son he is acting his baseline which is chronic Alzheimer's, denies fevers, no radiation to chest pain, shortness of breath, flank pain, poor appetite, fever. Severity is described as 0/10. Palliating factors include nothing specific. Provoking factors include nothing specific. Patients' medical history: UTI, urinary retention, obstructive uropathy. Family and social history: Lives at home with son. Pertinent exam findings / vital signs include no abdominal tenderness, no CVA tenderness bilaterally to percussion, triage vitals are not with the patient was observed on monitor at, pulse 88, BP 150/90, patient in no acute distress with no complaints. Differential / pathologies of concern include Thornton catheter problem, urinary retention, UTI less likely as he is just finished antibiotics for UTI. Diagnostic studies of: -None. Interventions of: -Replaced thornton cath. ED Course/Assessment/Plan: 73-year-old male with Alzheimer's ripped out his Thornton catheter, he was due for home health change of the catheter tomorrow, per the son he is acting himself, he has no tenderness in the abdomen, no flank tenderness percussion he is afebrile, I personally observed him normotensive with a heart rate of 88, and he is nontoxic-appearing, I stressed strict return criteria for any emergent concerns or further urinary problems. This patient and son verbalized understanding of the plan. Findings not consistent with toxic presentation, renal stones, pyelonephritis. Disposition of Thornton catheter problem. Patient verbalized understanding of the plan and return to ED criteria and engaged in shared decision making. Medical Records Medical records reviewed: Yes I reviewed the patient's medical records. Quality:SDOH Health Related Social Needs: No Data to Display PFSH All Active Problems (Updated 08/05/24 @ 22:10 by KAY Yepez) Thornton catheter problem (Acute) ACP (advance care planning) (Acute) Caregiver stress (Acute) Financial difficulties (Acute) Need for home health care (Acute) Impaired instrumental activities of daily living (Acute) Deficit in activities of daily living (ADL) (Acute) Frequent UTI (Acute) Palliative care patient (Acute) UTI (urinary tract infection) due to urinary indwelling Thornton catheter (Acute) Atrial fibrillation with RVR (Acute) Altered mental state (Acute) Sepsis (Acute) Seizure (Acute) New onset seizure without head trauma (Acute) Global aphasia (Acute) Stroke (Chronic) Dysplastic colon polyp (Acute) Urothelial carcinoma (Acute) 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) Screening for colon cancer (Acute) Recurrent nephrolithiasis (Acute) Medical History UTI (urinary tract infection) Dystrophia unguium Edema, lower extremity Candidiasis of skin Peripheral venous insufficiency Lower urinary tract obstructive syndrome Weakness of both lower extremities Uses self-applied continuous glucose monitoring device Cognitive decline Cerebral infarction Hyperbilirubinemia Cardiomegaly Partial epilepsy 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 Atrial fibrillation with rapid ventricular response Obstructive sleep apnea syndrome (08/10/08) cpap Obstructive uropathy Peripheral neuropathy Venous insufficiency History of depression Iron deficiency CARLOS A on CPAP Hypertension Type 2 diabetes mellitus Dementia Ulcer of [place]mos[place] limited to breakdown of skin Acute kidney injury superimposed on chronic kidney disease Creatinine elevation Elevated WBCs Hyperglycemia Ureterolithiasis Diabetic leg ulcer Phimosis Venous insufficiency (chronic) (peripheral) Bladder cancer Gross hematuria Chronic venous stasis Noncompliance Anxiety (08/10/08) Asbestosis (08/10/08) Asthma (07/08/12) pt. denies this Carpal tunnel syndrome Olecranon bursitis Peripheral neuralgia Atopic conjunctivitis (10/22/13) Benign prostatic hyperplasia (02/25/13) Depressive disorder (02/25/13) Diabetes mellitus (02/25/13) Essential hypertension (06/24/13) Frequency of micturition (01/03/16) Glaucoma (10/22/13) B/L Hyperlipidemia (02/25/13) Hypermetropia (10/22/13) Hypogonadism Idiopathic peripheral neuropathy Low back pain (08/10/08) Nuclear senile cataract (10/22/13) Obesity (08/10/08) Aviva-en-y 02/2014 Osteoarthritis (08/10/08) BILATERAL KNEE replacements Peptic reflux disease (08/10/08) Presbyopia (10/22/13) Pterygium (08/10/08) LEFT EYE Regular astigmatism (10/22/13) Sensorineural hearing loss, bilateral (09/05/17) Tubular adenoma Tubular and tubulovillous adenoma 2011 --suggested repeat 2017 Umbilical hernia (08/18/12) Urgency of urination (01/03/16) Varicose veins of lower extremity (08/10/08) Urinary tract infection Chronic anticoagulation Atrial fibrillation Surgical History S/P laparoscopic-assisted sigmoidectomy Hx of total knee arthroplasty Pt reports he has had a left and right knee repacement. Pt doesnt remember when and thinks he had it done at [facility] Status post cholecystectomy S/P cholecystectomy (~01/04/21) acute hemorrhagic cholecystitis and xanthogranulomatous inflammation S/P partial colectomy (~05/09/20) History of transurethral destruction of bladder lesion S/P colonoscopy Haddad-2011- tubular and tubulovillous polyps Santiago- 2019- sessile serrated with low grade dysplacia, tubullovillous with high grade dysplacia and tubular adenomas Status post abdominoplasty (05/23/16) Status post tonsillectomy Status post total knee replacement B/L Vasectomy Aviva-en-y surgery for weight loss Ronnell Fundoplication Repair of umbilical hernia Laparoscopic Family History Mother Cancer Father Heart disease Sister Cancer Sister No problems noted. Brother Cancer Brother No problems noted. Brother No problems noted. Son No problems noted. Son No problems noted. Son No problems noted. Social History Smoking/Tobacco Use Status: Never Second Hand Exposure: Yes Smoking risk assessment performed?: Yes Alcohol Intake: never Drug use: Never Substance use type: does not use Caregiver/Support person: No Household members: other Details: son Housing: house Communication Needs: None Education Level: high school Do you need help understanding health information?: Never Pets and animals: No Do you think of yourself as: straight/heterosexual Current gender identity: male What is your relationship status?: How often do you talk on the phone with friends or family?: once per week How often do you get together with friends or relatives?: decline to answer How often do you attend confucianist or amish services?: decline to answer Do you belong to any clubs or organized social groups?: no Panel score (0-1 are the most socially isolated patients): 0 What type of physical activity do you participate in: walking Duration: 15-30 minutes/day Frequency: 1-2 times per week Vleia/Christianity: Shinto Special velia needs: No Seatbelt use: always Helmet use: No Drive intox or ride w/intox special client bus driver: No Do you feel safe at home: Yes Do you feel safe in your relationship?: Yes
--- OUTSIDE RECORDS SUMMARY | 2024-08-05 21:24 | XMS_ITS | Encounter Summary ---
[facility] [place] [address] Care Team Providers Care Vascular Ultrasound Technician Name Role Phone David Massey MD Primary Care Provider [phone] Encounter Details Date Type Department Care Team (Late Contact Info) Description 05/28/2022 Telephone [place] [id number] Claire Stuart Social History Tobacco Use Types [...] on filedocumented in this encounter Care Teams Vascular Ultrasound Technician Relationship Specialty Start Date End Date David Massey MD [address] [place] [address] PCP - General Emergency Medicine 03/31/21 documented as of this encounter
--- OUTSIDE RECORDS SUMMARY | 2024-08-05 21:24 | XMS_ITS | Encounter Summary ---
[place] [address] Care Team Providers Care Auto Apprentice Mechanic Name Role Phone David Massey MD Primary Care Provider [phone] Encounter Details Date Type Department Care Team (Late st Contact Info) Description 05/23/2022 Orders Only [place] [address] Aline Pate, RN Venous insufficiency of both [...] stage documented in this encounter Care Teams Auto Apprentice Mechanic Relationship Specialty Start Date End Date David Massey MD [address] [place] [address] PCP - General Emergency Medicine 03/31/21 documented as of this encounter
--- OUTSIDE RECORDS SUMMARY | 2024-08-05 21:24 | XMS_ITS | Encounter Summary ---
[facility] [place] [address] Care Team Providers Care Supervisor Assembly Name Role Phone David Massey MD Primary Care Provider [phone] Encounter Details Date Type Department Care Team (Late st Contact Info) Description 12/26/2022 [place] [id number] Unknown None Social History Tobacco Use Types [...] Caller: Cezar If not PT/Relation to PT: [facility] Best number to reach caller: [phone] Reason for the Call: Checking on status of referral To check on the status oftheir referral: If not, what is the reason for their call: Previous Neurology Information Questions: Has the patient seen another Neurologist: No If yes, when and where: Has the patient had any imaging done: Yes If yes, when and where: 12/03/22 [facility] - CT Head & Spine 12/03/22 [facility] - MR Head documented in this encounter Plan of Treatment Not on file documented as of this encounter Visit Diagnoses Not on filedocumented in this encounter Care Teams Supervisor Assembly Relationship Specialty Start Date End Date David Massey MD [address] [place] [address] PCP - General Emergency Medicine 03/31/21 documented as of this encounter
--- OUTSIDE RECORDS SUMMARY | 2024-08-05 21:24 | XMS_ITS | Encounter Summary ---
Author Organization [facility] Address [facility] [place] [address] Care Team Providers Care Merchandise Shopper Name Role Phone David Massey MD Primary Care Provider [phone] Encounter Details Date Type Department Care Team (Late st Contact Info) Description 12/03/2022 1:20 PM EST Ancillary Procedure Radiology Library at [facility] [place] [address] Constantine Crenshaw MD [facility] [place] [address] Social History Tobacco Use Types Packs/Day Years [...] MR Head (12/03/2022 1:16 PM EST) Narrative [facility] - 12/03/2022 1:16 PM EST This exam is auto-finalizing. It's purpose is for storage only. Constantine Crenshaw MD IMG FILM LIBRARY O RDERABLES [place], [place] documented in this encounter Visit Diagnoses Not on filedocumented in this encounter Care Teams Merchandise Shopper Relationship Specialty Start Date End Date David Massey MD [address] [place] [address] PCP - General Emergency Medicine 03/31/21 documented as of this encounter
--- OUTSIDE RECORDS SUMMARY | 2024-08-05 21:24 | XMS_ITS | Encounter Summary ---
Author Organization [facility] Address [facility] [place] [address] Care Team Providers Care Student Assistant Name Role Phone David Massey MD Primary Care Provider [phone] Encounter Details Date Type Department Care Team (Late st Contact Info) Description 12/03/2022 [place] [address] Constantine Crenshaw MD [facility] [place] [address] Social History Tobacco Use Types Packs/Day Years [...] 12/03/2022 1:[address] Jacome at [facility] called about this 71 [...] on filedocumented in this encounter Care Teams Student Assistant Relationship Specialty Start Date End Date David Massey MD [address] [place] [address] PCP - General Emergency Medicine 03/31/21 documented as of this encounter
--- OUTSIDE RECORDS SUMMARY | 2024-08-05 21:24 | XMS_ITS | Encounter Summary ---
[place] [address] Care Team Providers Care Automatic Glove Former Name Role Phone David Massey MD Primary Care Provider [phone] Reason for Referral * Diagnostic Test (Routine) - Closed Specialty Diagnoses / Procedures Referred By Sonal dawson Referred To Contact Cardiology Diagnoses Cerebrovascular accident (CVA), unspecified mechanism Chronic atrial fibrillation Procedures Mobile Kamari Elam MD [address] [place] [id number] [facility] [address] Referral ID Status Reason Start Date Expiration Date V isits Requested Visits Authorized [id number] Closed Specialty Service Requested 12/04/2022 12/04/2023 1 1 Reason for Visit * Diagnostic Test (Routine) - Closed Specialty Diagnoses / Procedures Referred By Sonal dawson Referred To Contact Cardiology Diagnoses Cerebrovascular accident (CVA), unspecified mechanism Chronic atrial fibrillation Procedures Mobile Kamari Ealm MD [address] [place] [phone] [facility] [address] Referral ID Status Reason Start Date Expiration Date V isits Requested Visits Authorized [id number] Closed Specialty Service Requested 12/04/2022 12/04/2023 1 1 Encounter Details Date Type Department Care Team (Latest Contact Info) Description 12/04/2022 2:30 PM EST - 12/04/2022 11:59 PM EST Hospital Encounter Mobile [place] [address] Kamari Fontana MD [address] [place] [id number] Cerebrovascular accident (CVA), unspecified mechanism; Chronic atrial [...] COMPLETE (12/04/2022 4:09 PM EST) EF 68 [employer] Audio SYSTEM Anatomical Region Laterality Modality Other 12/04/2022 2:41 PM EST Narrative 12/04/2022 4:19 PM EST ? Echocardiogram Report Name: EUGENE PURVIS ? Study Date: 12/04/2022 02:41 PMBP: 133/73 mmHg ?Patient Location: 4A 0000 : 1950 ?Height: 170 cm ? Account: [id number] Age: 71 yrs ?Weight: 96 kg Gender: Male ? BSA: 2.1 m2 Ordering Physician: KAMARI FONTANA Referring Physician: KAMARI FONTANA Performed By: Stormy Santos RDCS Reason For Study: Stroke Exam Location: [facility]. Interpretation Summary Technically difficult study. The [...] body of report for additional details. Procedure Complete-[id number]. Image enhancement Optison was used for left [...] Location: 0000 : 1950 Height: 170 cmAccount: [id number] Age: 71 yrs Weight: 96 kg Gender: Male BSA: 2.1 m2 Ordering Physician: KAMARI FONTANA Referring Physician: KAMARI FONTANA Performed By: Stormy Santos RDCS Reason For Study: Stroke Exam Location: [facility]. Interpretation Summary Technically difficult study. The [...] body of report for additional details. Procedure Complete-[id number]. Image enhancement Optison was used for left [...] fibrillation documented in this encounter Care Teams Automatic Glove Former Relationship Specialty Start Date End Date David Massey MD [address] [place] [phone] PCP - General Emergency Medicine 03/31/21 documented as of this encounter
--- OUTSIDE RECORDS SUMMARY | 2024-08-05 21:24 | XMS_ITS | Encounter Summary ---
[place] [address] Care Team Providers Care Senior Technical Analyst Name Role Phone David Massey MD Primary Care Provider [phone] Encounter Details Date Type Department Care Team (Late st Contact Info) Description 08/28/2022 [place] [address] Felecia Carney Social History Tobacco Use Types [...] on filedocumented in this encounter Care Teams Senior Technical Analyst Relationship Specialty Start Date End Date David Massey MD [address] [place] [address] PCP - General Emergency Medicine 03/31/21 documented as of this encounter
--- OUTSIDE RECORDS SUMMARY | 2024-08-05 21:24 | XMS_ITS | Clinical Summary ---
Author Organization Formerly [facility] Address [facility] [place] [address] Care Team Providers Care Fleet Coordinator Name Role Phone David Massey MD Primary Care Provider [phone] Allergies No known active allergies Medications Medication [...] Due Hepatitis A, Unspecified Formulation 03/18/2006 Hepatitis B, Unspecified Formulation 04/17/2006, 03/18/2006 Pneumococcal 23-Valent Polys accharide (Pneumovax 23) 02/14/2004 Rabies vaccine, intramuscular 04/17/2006, 006,03/18/2006 Td Adult (not absorbed) 02/15/2006,10/07/1996 Yellow Fever Vaccine 03/27/2006 Family History [...] Microalbumin yearly 12/20/1959 Hepatitis C Screening 12/20/1967 Zoster vaccine (1 of 2) 12/20/1999 Advance Directive 2004 Pneumoccocal Vaccine: 65+ (2 of 2 - PCV) 02/13/2005 02/14/2004 Tetanus/Diphtheria/Pertussis Vaccines (1 - Tdap) 02/16/2006 02/15/2006, 10/07/1996 DM Hemoglobin A1c 03/09/2016 12/08/2015, 11/03/2013 DM Creatinine yearly 04/22/2018 04/22/2017, 12/08/2015, 02/12/2014, Additional history exists Covid-19 Vaccine ( - 2022-2 4 season) 2024 Influenza (Flu) vaccine (1 o f 1 - Influenza standard series) 06/07/2024 Medical Devices Implanted Type Area Machine Stonecutter Device Identifier Shelf Expiration Date Model / Serial / Lot Mesh,Ventrio, St,Ovl,5.4x7i n ([id number]) - [id number] Implanted:Qty : 1 on 05/17/2016 by Stephanie Butcher MD at [facility] IMPLANTS Abdomen [employer] - 1825 01/15/2018 [id number] / / [id number] Explanted Type Area Machine Stonecutter Device Identifier Shelf Expiration Date Model / Serial / Lot Stent Ureteral [id number] Dbl Pgtl Soft Ptfe Tria ([id number]) - [id number] Implanted:Qty : 1 on 10/13/2021 by Romario Womack Jr., MD at [facility] Explanted:Qty : 1 on 03/09/2022 by Romario Womack Jr., MD IMPLANTS Left: Ureter Seeonic - Good Deal [id number] 04/11/2024 [id number] / / [id number] Procedures Procedure Name Priority Date/Time Associated Diagnosis [...] metabolic panel (non-fasting) (04/22/2017 11:18 AM EDT) [facility] Signature Glucose 123 65 - 199 mg/dL [facility] Comment:Diabetes: >=200 mg/d L plus symptoms Blood Urea Nitrogen 23(H) 10 - 20 mg/dL [facility] Creatinine 1.05 0.80 - 1.50 mg/dL [facility] Comment: Please note that the pediatric reference intervals supplied above were [place] [facility] [place] Results from pediatric patients should be interpreted in conjunction to the patient's age, height and muscle mass. Sodium 142 135 - 145 mmol/L [facility] Potassium 4.0 3.5 - 5.0 mmol/L [facility] Comment: Please note: ??Patients with WBC >100,000 may have falsely elevated Potassium levels. ??For accurate Potassium quantification in these patients send serum separator tube (gold top) for subsequent determinations. ??Contact the Clinical Chemistry Laboratory if there are any questions. Chloride 101 98 - 107 mmol/L [facility] Carbon Dioxide 25 22 - 31 mmol/L [facility] Anion Gap 16(H) 5 - 15 mmol/L [facility] Calcium 9.3 8.5 - 10.5 mg/dL [facility] Protein, Total 7.4 6.1 - 8.0 gm/dL [facility] Albumin 4.3 3.2 - 5.2 gm/dL [facility] Aspartate Aminotransferase 13 0 - 39 unit/L [facility] Alanine Aminotransferase 20 0 - 55 unit/L [facility] Alkaline Phosphatase 58 40 - 120 unit/L [facility] Bilirubin, Total 0.5 0.2 - 1.3 mg/dL [facility] Est Glomerular Filtration Rate >60 >=60 [facility] Comment: [...] the following links into your internet browser. [email or web address] Blood specimen (specimen) 04/22/2017 11:18 AM EDT 04/22/2017 11:25 AM EDT Narrative Resulting Agency Comment Spec In Lab Narda T Tiffany TOOL SPECIALIST CHEMISTRY ORDERAB LES [facility] [place] [address] * (ABNORMAL) Hemoglobin A1c (12/08/2015 11:50 AM EST) Hemoglobin A1c 6.9(H) 4.3 - 5.6 % [facility] Comment: Reference Range: 4.3 [...] Mellitus, Diabetes Care 2013; 36: Suppl. 1, P97-58 Estimated Average Glucose 151 mg/dL [facility] Comment: eAG equivalents for HbA1c percentages: HbA1c(%) ?eAG(mg/dL) 6.0 ?126 6.5 ?140 7.0 ?154 7.5 ?169 8.0 ?183 8.5 ?197 9.0 ?212 9.5 ?226 10.0 ? 240 Limitations: The eAG calculation has not been validated on women, individuals below 18 years old and above 70 years old, and individuals with hemoglobinopathies. Additional resources are available on the ADA website: [email or web address].[email or web address] Keyon MACHADO, Buddy J, Maynor R, et al. ??Translating the A1C assay into estimated average glucose values. ??Diabetes Care 2008:31(8):3210-0990. Blood specimen (specimen) 12/08/2015 11:50 AM EST 12/08/2015 11:58 AM EST Narrative Resulting Agency Comment Spec In Lab Wally Pfeiffer MD CHEMISTRY ORDERABLE S [facility] [place] [address] from Last 3 Months or Most Recently [...] is based on Patient wishes. Care Teams Fleet Coordinator Relationship Specialty Start Date End Date David Massey MD [address] [place] [address] PCP - General Emergency Medicine 03/31/21
--- OUTSIDE RECORDS SUMMARY | 2024-08-05 21:24 | XMS_ITS | Encounter Summary ---
Author Organization [facility] Address [facility] [place] [address] Care Team Providers Care African History Professor Name Role Phone David Massey MD Primary Care Provider [phone] Encounter Details Date Type Department Care Team (Late st Contact Info) Description 12/03/2022 1:25 PM EST Ancillary Procedure Radiology Library at [facility] [place] [address] Constantine Crenshaw MD [facility] [place] [address] Social History Tobacco Use Types Packs/Day Years [...] And Spine (12/03/2022 1:17 PM EST) Narrative [facility] - 12/03/2022 1:17 PM EST This exam is auto-finalizing. It's purpose is for storage only. Constantine Crenshaw MD IMG FILM LIBRARY O RDERABLES [place], [place] documented in this encounter Visit Diagnoses Not on filedocumented in this encounter Care Teams African History Professor Relationship Specialty Start Date End Date David Massey MD [address] [place] [address] PCP - General Emergency Medicine 03/31/21 documented as of this encounter
--- OUTSIDE RECORDS SUMMARY | 2024-08-05 21:24 | XMS_ITS | Encounter Summary ---
Author Organization [facility] Address [facility] [address] Care Team Providers Care Sub Prior Name Role Phone David Massey MD Primary Care Provider [phone] Reason for Referral * Consultation (Routine) - Closed Specialty Diagnoses / Procedures Referred By Sonal dawson Referred To Contact Urology Diagnoses Retention of urine, unspecified ? SURGERY FOR URINARY RETENTION Tamir Osuna MD [address] [place] [address] Mesfin Pina MD [facility] [place] [address] Referral ID Status Reason Start Date Expiration Date V isits Requested Visits Authorized [id number] Closed Consult, Test & Treat PCP Updated and/or Approved 06/12/2023 06/11/2024 6 6 Encounter Details Date Type Department Care Team (Latest Contact Info) Description 06/12/2023 Transcribe Orders eDH Incoming Referrals [phone] Tamir Osuna MD [address] [place], [place] [id number] Retention of urine, unspecified Social History Tobacco [...] unspecified documented in this encounter Care Teams Sub Prior Relationship Specialty Start Date End Date David Massey MD [address] [place] [address] PCP - General Emergency Medicine 03/31/21 documented as of this encounter
--- OUTSIDE RECORDS SUMMARY | 2024-08-05 21:25 | XMS_ITS | Encounter Summary ---
Author Organization [facility] Address [facility] [place] [address] Care Team Providers Care Siding Installer Name Role Phone David Massey MD Primary Care Provider [phone] Encounter Details Date Type Department Care Team (Late st Contact Info) Description 10/10/2021 [place] [address] Jose C Skaggs MD [facility] [place] [address] Social History Tobacco Use Types Packs/Day Years [...] Dr. Womack. Patient will give sample at [facility] today. Jose C Skaggs MD documented in this encounter Plan of Treatment Not on file documented as of this encounter Visit Diagnoses Diagnosis Recurrent nephrolithiasis- Primary Calculus of kidney documented in this encounter Care Teams Siding Installer Relationship Specialty Start Date End Date David Massey MD [address] [place] [address] PCP - General Emergency Medicine 03/31/21 documented as of this encounter
--- OUTSIDE RECORDS SUMMARY | 2024-08-05 21:25 | XMS_ITS | Encounter Summary ---
Author Organization [facility] [place] [address] Care Team Providers Care Bladder Trimmer Name Role Phone David Massey MD Primary Care Provider [phone] Encounter Details Date Type Department Care Team (Late st Contact Info) Description 01/11/2022 Orders [place] [address] Julienne Tinoco, RN Venous insufficiency of both [...] RN - 01/11/2022 8:50 AM EDT This development writer phoned the patient regarding their upcoming [...] Patient repeated medication plan back to this development writer. documented in this encounter Plan of Treatment Not on file documented as of this encounter Visit Diagnoses Diagnosis Venous insufficiency of both lower extremities documented in this encounter Care Teams Bladder Trimmer Relationship Specialty Start Date End Date David Massey MD [address] [place] [address] PCP - General Emergency Medicine 03/31/21 documented as of this encounter
--- OUTSIDE RECORDS SUMMARY | 2024-08-05 21:25 | XMS_ITS | Encounter Summary ---
[place] [address] Care Team Providers Care Internet Security Specialist Name Role Phone David Massey MD Primary Care Provider [phone] Reason for Visit * Consultation (Routine) - Closed Specialty Diagnoses / Procedures Referred By Sonal dawson Referred To Contact Vascular Surgery Diagnoses Chronic venous insufficiency David Massey MD [address] [place] [address] [facility] [place] [address] [place] [address] Referral ID Status Reason Start Date Expiration Date V isits Requested Visits Authorized [id number] Closed Consult, Test & Treat PCP Updated and/or Approved 12/05/2021 12/05/2022 12 12 Encounter Details Date Type Department Care Team ([facility] st Contact Info) Description 01/10/2022 1:00 PM EDT Office Visit [place] [address] Wally López III, MD [address] [place] [address] [place] [address] Venous insufficiency of both lower extremities; Venous [...] years. He denies bleeding events. Echocardiogram at [facility] 2013 was technically difficult, but showed normal [...] Disp: , Rfl: ??? OneTouch Ultra2 Meter [facility], USE DIRECTED FOUR TIMES A DAY, Disp: [...] Visit from 01/10/2022 in Vascular Surgery at [facility] Weight 99.8 kg (220 lb) [reported] Height [...] improve his situation there. That certainly may international exchange coordinator time and I will periodically reevaluate the [...] this in the operating room either at [facility] or [facility], where we perform many of [...] laterality documented in this encounter Care Teams Internet Security Specialist Relationship Specialty Start Date End Date David Massey MD [address] [place] [address] PCP - General Emergency Medicine 03/31/21 documented as of this encounter
--- OUTSIDE RECORDS SUMMARY | 2024-08-05 21:25 | XMS_ITS | Encounter Summary ---
Author Organization [facility] Address [facility] [place] [address] Care Team Providers Care Piano Teacher Name Role Phone David Massey MD Primary Care Provider [phone] Encounter Details Date Type Department Care Team (Late Contact Info) Description 03/08/2022 [place] [address] Paulette Pickard MD [facility] [address] Social History Tobacco Use Types Packs/Day Years [...] urine sample drop. Pt will submit to [facility] today documented in this encounter Plan of Treatment Not on file documented as of this encounter Visit Diagnoses Diagnosis Lower urinary tract symptoms (LUTS) Other symptoms involving urinary system documented in this encounter Care Teams Piano Teacher Relationship Specialty Start Date End Date David Massey MD [address] [place] [address] PCP - General Emergency Medicine 03/31/21 documented as of this encounter
--- OUTSIDE RECORDS SUMMARY | 2024-08-05 21:25 | XMS_ITS | Encounter Summary ---
Author Organization [facility] Address [facility] [place] [address] Care Team Providers Care Access Rep Name Role Phone David Massey MD Primary Care Provider [phone] Reason for Visit * Auth/Cert Specialty Diagnoses / Procedures Referred By Sonal dawson Referred To Contact Diagnoses Left renal stone LEFT STONE Procedures PRO CYSTO/URETERO/PYELOSCOPY W/LITHOTRIPSY CYSTOURETEROSCOPY, LITHOTRIPSY (WRVU 7.5) MODIFIER HOLMIUM LASER Referral ID Status Reason Start Date Expiration Date Visits Re quested Visits Authorized [id number] 1 1 Encounter Details Date Type Department Care Team (Late st Contact Info) Description 03/09/2022 1:56 PM EDT Anesthesia Event [place] [address] Jt Vazquez MD [facility] [place] [address] Mesfin Walker MD [facility] [place] [address] Anesthesia Record Procedure Summary Procedure Name Responsible [...] IV Line - Single Lumen 03/09/22; 1220; qubd-liu-[id number] catheter system; Anatomical Landmarks; 22 gauge, 3/4 [...] Procedure Summary Date: 03/09/22 Room / Location: [facility] [place] [address] [place] [address] Anesthesia Start: 1356 Anesthesia Stop: 1451 Procedure: CYSTO, CYSTOURETHROSCOPY, DIAGNOSTIC (WRVU 2.23) (N/A Bladder) Diagnosis: (LEFT STONE) Surgeons: Romario Womack Jr., MD Responsible Provider: Jt Vazquez MD Anesthesia Type: general ASA Status: 3 All Anesthesia Providers: Anesthesiologist: Jt Vazquze MD REPAIRER VENEER SHEET: Odalis Montes CRNA Vitals Value Taken Time BP 104/57 03/09/22 1448 Temp 37 ??C (98.6 ??F) 03/09/22 1447 Pulse 82 03/09/22 1455 Resp 16 03/09/22 1447 SpO2 97 % 03/09/22 1455 Pain Level Vitals shown include unvalidated device data. Patient Location: PACU/[facility] Level of Consciousness: Awake and [...] 11/09/2021 1:50 PM EST Pre-Anesthesia Evaluation for: Eugnee Rueda a 70 y.o. male. Procedure(s): CYSTOURETEROSCOPY, [...] performed by Romario Womack Jr., MD at [facility] ??? PRO CYSTOURETHROSCOPY, URETER CATHETER Left 10/13/2021 CYSTO, RETROGRADE, URETEROPYELOGRAPHY (WRVU 2.37) performed by Romario Womack Jr., MD at [facility] ??? PRO EXCISE EXCESS SKIN TISSUE, ABDOMEN N/A 05/17/2016 ABDOMINOPLASTY performed by Adis Membreno MD at [facility] OR ??? PRO LAP GASTRIC BYPASS/KEYSHA-EN-Y 02/08/2014 @LAPAROSCOPIC GASTROPLASTY, performed by Wally Pfeiffer MD at [facility] OR ??? PRO LAP, DIAGNOSTIC ABDOMEN 02/10/2014 LAPAROSCOPY, DIAGNOSTIC, ABDOMEN performed by Wally Pfeiffer MD at [facility] OR ??? PRO REPAIR INCISIONAL HERNIA, REDUCIBLE N/A 05/17/2016 REPAIR INITIAL INCISIONAL OR VENTRAL HERNIA REDUCIBLE [facility] ??? PRO UNLISTED LAPAROSCOPIC PROCEDURE ESOPHAGUS 02/08/2014 LAPAROSCOPIC REVISION OF DELROY FUNDOPLASTY performed by Wally Pfeiffer MD at [facility] OR ??? PRO UPPER GI [...] SPECIMENS performed by Wally Pfeiffer MD at [facility] OR ??? TONSILLECTOMY ??? TOTAL [...] 5% 100 mL infusion 2 g, Intravenous, SUMMER SESSIONS DIRECTOR TO O.R., 1 dose, On Sat03/09/22 at [...] 0.9% 200 mL infusion 400 mg, Intravenous, SUMMER SESSIONS DIRECTOR TO O.R., 1 dose, On Sat03/09/22 at [...] mg documented in this encounter Care Teams Access Rep Relationship Specialty Start Date End Date David Massey MD [address] [place] [address] PCP - General Emergency Medicine 03/31/21 documented as of this encounter
--- OUTSIDE RECORDS SUMMARY | 2024-08-05 21:25 | XMS_ITS | Encounter Summary ---
Author Organization [facility] [place] [address] Care Team Providers Care Artist Model Name Role Phone Manolo Castro MD Primary Care Provider [phone] Reason for Referral * Physical Therapy (Routine) - Specialty Diagnoses / Procedures Referred By Sonal dawson Referred To Contact Physical Therapy Diagnoses Acute pain of left knee Marcial Frost PA [facility] [place] [address] Referral ID Status Reason Start Date Expiration Date V isits Requested Visits Authorized [id number] Evaluate and Treat 07/31/2016 01/27/2017 12 12 Reason for Visit * Reason Comments Aftercare Of Tjr bilateral TKA 3 Encounter Details Date Type Department Care Team (Late st Contact Info) Description 07/31/2016 11:00 AM EDT Office [place] [address] Marcial Frost PA [facility] [place] [address] Acute pain of left knee (Primary Dx) [...] Patient has bilateral TKA done here at [facility]. He stated that both Surgeons responsible for [...] Primary documented in this encounter Care Teams Artist Model Relationship Specialty Start Date End Date Manolo Castro MD [address] [place] [address] PCP - General 05/14/12 04/21/17 documented as of this encounter
--- OUTSIDE RECORDS SUMMARY | 2024-08-05 21:25 | XMS_ITS | Encounter Summary ---
[facility] [place] [address] Care Team Providers Care Cardiopulmonary Supervisor Name Role Phone Dominic Restrepo MD Primary Care Provider [phone] Encounter Details Date Type Department Care Team (Late st Contact Info) Description 05/09/2017 Orders [place] [address] Narda Allen APRN [facility] [place] [address] Disorder of iron metabolism; Status post bariatric [...] unspecified documented in this encounter Care Teams Cardiopulmonary Supervisor Relationship Specialty Start Date End Date Dominic Restrepo MD [address] [place], [place] [id number] PCP - General Family Medicine 04/22/17 03/30/21 documented as of this encounter
--- OUTSIDE RECORDS SUMMARY | 2024-08-05 21:25 | XMS_ITS | Encounter Summary ---
Author Organization [facility] [place] [address] Care Team Providers Care Rail Bonder Name Role Phone David Massey MD Primary Care Provider [phone] Encounter Details Date Type Department Care Team (Late st Contact Info) Description 06/01/2021 Ancillary Procedure Radiology Library [place] [address] David Massey MD [address] [place], [place] [id number] Social History Tobacco Use Types Packs/Day Years [...] & Pelvis (06/01/2021 12:00 AM EDT) Narrative [facility] - 06/30/2021 1:47 PM EDT This exam is auto-finalizing. It's purpose is for storage only. David Massey MD [facility] FILM LIBRARY ORD ERABLES Performing Organization Address City/State/[facility] Co de Phone Number [place], [place] documented in this encounter Visit Diagnoses Not on filedocumented in this encounter Care Teams Rail Bonder Relationship Specialty Start Date End Date David Massey MD [address] [place] [address] PCP - General Emergency Medicine 03/31/21 documented as of this encounter
--- OUTSIDE RECORDS SUMMARY | 2024-08-05 21:25 | XMS_ITS | Encounter Summary ---
Author Organization [facility] [place] [address] Care Team Providers Care Auto Mechanic Name Role Phone David Massey MD Primary Care Provider [phone] Reason for Visit * Auth/Cert Specialty Diagnoses [...] Expiration Date Visits Re quested Visits Authorized [id number] 1 1 Encounter Details Date Type Department Care Team (Late st Contact Info) Description 10/13/2021 12:04 PM EST Anesthesia Event [place] [address] Onur Walker MD [facility] [address] [place] [address] Naomie Graham [place] [address] Anesthesia Record Procedure Summary Procedure Name Responsible [...] 1141; median cubital vein (antecubital fossa), right; [id number] catheter system; 20 gauge; distraction, tolerated well, [...] Summary Date: 10/13/21 Room / Location: [address] Anesthesia Start: 1204 Anesthesia Stop: 1300 Procedures: CYSTO, STENT PLACEMENT (WRVU 2.82) (Left Bladder) CYSTO, RETROGRADE, URETEROPYELOGRAPHY (WRVU 2.37) (Left Bladder) Diagnosis: (stone) Surgeons: Romario Womack Jr., MD Responsible Provider: Onur Walker MD Anesthesia Type: general ASA Status: 3 All Anesthesia Providers: Anesthesiologist: Onur Walker MD HOME AND SCHOOL VISITOR: Nereyda Pina CRNA Vitals Value Taken Time BP 107/78 10/13/21 1315 Temp 36.9 ??C (98.4 ??F) 10/13/21 1257 Pulse 77 10/13/21 1315 Resp 16 10/13/21 1315 SpO2 97 % 10/13/21 1315 Pain Level 0 10/13/21 1315 Patient Location: PACU/[facility] Level of Consciousness: Awake and Alert [...] ABDOMINOPLASTY performed by Adis Membreno MD at [facility] OR ??? PRO LAP GASTRIC BYPASS/KEYSHA-EN-Y 02/08/2014 @LAPAROSCOPIC GASTROPLASTY, performed by Wally Pfeiffer MD at [facility] OR ??? PRO LAP, DIAGNOSTIC ABDOMEN 02/10/2014 LAPAROSCOPY, DIAGNOSTIC, ABDOMEN performed by Wally Pfeiffer MD at [facility] OR ??? PRO LAP, ESOPHAGUS, OTHER PROC 02/08/2014 LAPAROSCOPIC REVISION OF DELROY FUNDOPLASTY performed by Wally Pfeiffer MD at [facility] OR ??? PRO REPAIR INCISIONAL HERNIA, REDUCIBLE N/A 05/17/2016 REPAIR INITIAL INCISIONAL OR VENTRAL HERNIA REDUCIBLE [facility] ??? PRO UPPER GI ENDOSCOPY, BIOPSY 12/11/2013 UPPER GASTROINTESTINAL ENDOSCOPY,WITH BIOPSY SINGLE OR MULTIPLE performed by Wally Pfeiffer MDat [facility] ENDOSCOPY ??? PRO UPPER GI ENDOSCOPY, DIAGNOSTIC 12/25/2013 EGD, UPPER GI ENDOSCOPY performed by Wally Pfeiffer MD at [facility] ENDOSCOPY ??? PRO UPPER GI ENDOSCOPY, DIAGNOSTIC 02/08/2014 ENDOSCOPY, UPPER GI, DIAGNOSTIC, WITH OR WITHOUT SPECIMENS performed by Wally Pfeiffer MD at [facility] OR ??? TONSILLECTOMY ??? TOTAL [...] risks discussed with patient. Plan discussed with HOME AND SCHOOL VISITOR. Anesthesia Screening Note: Date and Time of Entry: 10/09/2021 12:10 PM Entered By: Naomie Graham APRN Hx of Anesthesia Problem: Hx Afib, DM, COPD Screening Visit Type: Telephone Call Additional/Outside Records Requested? Requested medical information from outside organization. From Where? PCP notes from [facility] Findings, Assessment and Plan: 70 [...] of anesthesia complications. Patient underwent ureteroscopy at [facility] on 06/08/21. A LMA placed without [...] No fever/chills. The patient was referred to [facility] for the second stage of his procedure [...] takes diltiazem, lisinopril and metoprolol. His PCP ([facility]) manages his Eliquis. His last [...] time. -Patient scheduled for surgery at [facility]. Will review anesthesia records from June with [...] 5% 100 mL infusion 2 g, Intravenous, ACID PUMPER TO O.R., 1 dose, On Sat10/13/21 at [...] documented in this encounter Care Teams Auto Mechanic Relationship Specialty Start Date End Date David Massey MD [address] [place] [address] PCP - General Emergency Medicine 03/31/21 documented as of this encounter
--- OUTSIDE RECORDS SUMMARY | 2024-08-05 21:25 | XMS_ITS | Encounter Summary ---
Author Organization [place] [address] Care Team Providers Care Bone Worker Name Role Phone Dominic Restrepo MD Primary Care Provider [phone] Encounter Details Date Type Department Care Team (Late st Contact Info) Description 06/24/2018 Telephone [place] [phone] Ansley Hebert Social History Tobacco Use Types [...] on filedocumented in this encounter Care Teams Bone Worker Relationship Specialty Start Date End Date Dominic Restrepo MD [address] [place] [address] PCP - General Family Medicine 04/22/17 03/30/21 documented as of this encounter
--- OUTSIDE RECORDS SUMMARY | 2024-08-05 21:25 | XMS_ITS | Encounter Summary ---
Author Organization [facility] [place] [address] Care Team Providers Care Senior Sharepoint Developer Name Role Phone Manolo Castro MD Primary Care Provider [phone] Reason for Visit * Reason Comments Follow Up Surgery panni and hernia rep air 05/17 Encounter Details Date Type Department Care Team (Late st Contact Info) Description 05/29/2016 11:20 AM EDT Office [place] [address] Terri Barriga APRN [facility] [place] [address] Surgery follow-up Social History Tobacco Use Types [...] surgery documented in this encounter Care Teams Senior Sharepoint Developer Relationship Specialty Start Date End Date Manolo Castro MD [address] [place] [address] PCP - General 05/14/12 04/21/17 documented as of this encounter
--- OUTSIDE RECORDS SUMMARY | 2024-08-05 21:25 | XMS_ITS | Encounter Summary ---
[place] [address] Care Team Providers Care Disability Insurance Claim Examiner Name Role Phone Manolo Castro MD Primary Care Provider [phone] Encounter Details Date Type Department Care Team (Late st Contact Info) Description 03/18/2017 Telephone [place] [phone] Sandie Gibbs Social History Tobacco Use Types [...] on filedocumented in this encounter Care Teams Disability Insurance Claim Examiner Relationship Specialty Start Date End Date Manolo Castro MD [address] [place], [place] [address] PCP - General 05/14/12 04/21/17 documented as of this encounter
--- OUTSIDE RECORDS SUMMARY | 2024-08-05 21:25 | XMS_ITS | Encounter Summary ---
Author Organization [facility] [place] [address] Care Team Providers Care News Camera Operator Name Role Phone David Massey MD Primary Care Provider [phone] Reason for Visit * Diagnostic Test (Routine) - Closed Specialty Diagnoses / Procedures Referred By Sonal dawson Referred To Contact Diagnoses Leg edema Procedures Venous Valvular Incomp, Bilat Legs Yanira Ha, [facility] [place] [address] [facility] Vascular [facility] [address], [place] [address] Referral ID Status Reason Start Date Expiration Date V isits Requested Visits Authorized [id number] Closed Specialty Service Requested 12/05/2021 12/05/2022 1 1 Encounter Details Date Type Department Care Team (Late st Contact Info) Description 01/10/2022 10:00 AM EDT Tech Visit [place] [address] Estefany Wallis [place] Leg edema [...] Text Report Department: Vascular Surgery Lab Patient: [id number] (EUGENE PURVIS) CPT: 79040 Referring Physician: YANIRA HA APRN ?? Indications: [...] VASCUBASE 01/10/2022 9:36 AM EDT Yanira Floresman FAMILY SERVICES ASSISTANT VASCULAR ORDERABLE S VASCUBASE documented in this encounter Visit Diagnoses Diagnosis Leg edema Edema documented in this encounter Care Teams News Camera Operator Relationship Specialty Start Date End Date David Massey MD [address] [place] [address] PCP - General Emergency Medicine 03/31/21 documented as of this encounter
--- OUTSIDE RECORDS SUMMARY | 2024-08-05 21:25 | XMS_ITS | Encounter Summary ---
Author Organization [facility] Address [facility] [place] [address] Care Team Providers Care Adjunct Lecturer Name Role Phone Dominic Restrepo MD Primary Care Provider [phone] Encounter Details Date Type Department Care Team (Late st Contact Info) Description 12/25/2017 Orders [place] [address] Marcial Frost PA [facility] [place] [address] Left shoulder pain, unspecified chronicity Social History [...] chronicity documented in this encounter Care Teams Adjunct Lecturer Relationship Specialty Start Date End Date Dominic Restrepo MD [address] [place], [place] [id number] PCP - General Family Medicine 04/22/17 03/30/21 documented as of this encounter
--- OUTSIDE RECORDS SUMMARY | 2024-08-05 21:25 | XMS_ITS | Encounter Summary ---
Author Organization [facility] [place] [address] Care Team Providers Care Commercial Development Manager Name Role Phone David Massey MD Primary Care Provider [phone] Encounter Details Date Type Department Care Team (Late st Contact Info) Description 03/31/2021 Orders [place] [address] Marychuy Ha APRN [facility] [place] [address] Leg edema Social History Tobacco Use Types [...] Edema documented in this encounter Care Teams Commercial Development Manager Relationship Specialty Start Date End Date David Massey MD [address] [place] [address] PCP - General Emergency Medicine 03/31/21 documented as of this encounter
--- OUTSIDE RECORDS SUMMARY | 2024-08-05 21:25 | XMS_ITS | Encounter Summary ---
Author [facility] [place] [address] Care Team Providers Care Doctor Osteopathic Name Role Phone David Massey MD Primary Care Provider [phone] Encounter Details Date Type Department Care Team (Late Contact Info) Description 04/27/2022 Telephone Pre[place] [address] Adis Lubin RN Social History Tobacco Use [...] Farxiga and Jardiance x 3 days per [facility] Diabetes Medication Adjustment Guidelines. Patient states understanding of same. documented in this encounter Plan of Treatment Not on file documented as of this encounter Visit Diagnoses Not on filedocumented in this encounter Care Teams Doctor Osteopathic Relationship Specialty Start Date End Date David Massey MD [address] [place] [address] PCP - General Emergency Medicine 03/31/21 documented as of this encounter
--- OUTSIDE RECORDS SUMMARY | 2024-08-05 21:25 | XMS_ITS | Encounter Summary ---
Author Organization [facility] [place] [address] Care Team Providers Care Typewriter Assembly And Parts Inspector Name Role Phone Dominic Restrepo MD Primary Care Provider [phone] Reason for Referral * Physical Therapy (Routine) - Specialty Diagnoses / Procedures Referred By Sonal dawson Referred To Contact Diagnoses Status post bilateral knee replacements Marva Pedraza PA [facility] [place] [address] Referral ID Status Reason Start Date Expiration Date V isits Requested Visits Authorized [id number] Evaluate and Treat Non PCP 03/25/2019 09/21/2019 1 1 Reason for Visit * Reason Comments Right Knee Pain has bilat TKA DOS - increased pain * Consultation (Routine) - Closed Specialty Diagnoses / Procedures Referred By Sonal dawson Referred To Contact Orthopaedics Diagnoses RIGHT KNEE PAIN Self mail [facility] [address] [place] [address] Referral ID Status Reason Start Date Expiration Date V isits Requested Visits Authorized [id number] Closed Consult, Test & Treat 03/24/2019 03/23/2020 1 1 Encounter Details Date Type Department Care Team ([facility] st Contact Info) Description 03/25/2019 4:30 PM EDT Office [place] [address] Amish Han MD [facility] [place] [address] Status post bilateral knee replacements Social History [...] subsidence, loosening, or periprosthetic complication. Questionnaire Responses: [facility] Surgical Postop Visit 03/25/2019 PROMIS-10 General Health [...] - Choose Same Treatment Again - Orthopeadics [facility] Response 03/25/2019 KOOS JR Scores 52.47 Spine [...] replacements documented in this encounter Care Teams Typewriter Assembly And Parts Inspector Relationship Specialty Start Date End Date Dominic Restrepo MD [address] [place] [address] PCP - General Family Medicine 04/22/17 03/30/21 documented as of this encounter
--- OUTSIDE RECORDS SUMMARY | 2024-08-05 21:25 | XMS_ITS | Encounter Summary ---
Author Organization [facility] Address [facility] [place] [address] Care Team Providers Care Commercial Announcer Name Role Phone David Massey MD Primary Care Provider [phone] Reason for Visit * Reason Comments Nephrolithiasis * Consultation (Urgent) - Closed Specialty Diagnoses / Procedures Referred By Sonal dawson Referred To Contact Urology Diagnoses Calculus of ureter 07/14 - [facility] Tamir Osuna MD [address] [place] [address] [facility] [place] [address] Referral ID Status Reason Start Date Expiration Date V isits Requested Visits Authorized [id number] Closed Consult, Test & Treat [facility] PCP Updated and/or Approved 06/30/2021 06/30/2022 6 6 Encounter Details Date Type Department Care Team (Late st Contact Info) Description 09/12/2021 3:40 PM EST [place] [address] Catrachito Mehta MD [facility] [place] [address] Ureteral stone Social History Tobacco [...] ABDOMINOPLASTY performed by Adis Membreno MD at [facility] OR ??? PRO LAP GASTRIC BYPASS/KEYSHA-EN-Y 02/08/2014 @LAPAROSCOPIC GASTROPLASTY, performed by Wally Pfeiffer MD at [facility] OR ??? PRO LAP, DIAGNOSTIC ABDOMEN 02/10/2014 LAPAROSCOPY, DIAGNOSTIC, ABDOMEN performed by Wally Pfeiffer MD at [facility] OR ??? PRO LAP, ESOPHAGUS, OTHER PROC 02/08/2014 LAPAROSCOPIC REVISION OF DELROY FUNDOPLASTY performed by Wally Pfeiffer MD at [facility] OR ??? PRO REPAIR INCISIONAL HERNIA, REDUCIBLE N/A 05/17/2016 REPAIR INITIAL INCISIONAL OR VENTRAL HERNIA REDUCIBLE [facility] ??? PRO UPPER GI ENDOSCOPY, BIOPSY 12/11/2013 UPPER GASTROINTESTINAL ENDOSCOPY,WITH BIOPSY SINGLE OR MULTIPLE performed by Wally [facility]iffer MDat [facility] ??? PRO UPPER GI ENDOSCOPY, DIAGNOSTIC 12/25/2013 EGD, UPPER GI ENDOSCOPY performed by Wally Pfeiffer MD at [facility] ENDOSCOPY ??? PRO UPPER GI ENDOSCOPY, DIAGNOSTIC 02/08/2014 ENDOSCOPY, UPPER GI, DIAGNOSTIC, WITH OR WITHOUT SPECIMENS performed by Wally Pfeiffer MD at [facility] OR ??? TONSILLECTOMY ??? TOTAL [...] fevers, sweats, chills, anorexia, denies weight changes. CASING MATERIAL WEIGHER: Denies loss of consciousness, denies balance difficulty, [...] documented in this encounter Care Teams Commercial Announcer Relationship Specialty Start Date End Date David Massey MD [address] [place] [address] PCP - General Emergency Medicine 03/31/21 documented as of this encounter
--- OUTSIDE RECORDS SUMMARY | 2024-08-05 21:25 | XMS_ITS | Encounter Summary ---
Author Organization [facility]ian [facility] [address] Care Team Providers Care Rigger Helper Name Role Phone Dominic Restrepo MD Primary Care Provider [phone] Reason for Visit * Reason Comments Follow-up Bariatric Surgery Pr lexi follow up Encounter Details Date Type Department Care Team (Late Contact Info) Description 04/22/2017 9:30 AM EDT Office [place] [address] Narda Allen, [facility] [place] [address] Disorder of iron metabolism; [...] Keila Hickman - 04/22/2017 9:30 AM EDT [facility] Admin coordinator Tracy: [phone] Dietitian: [phone] Surgeons/ nurse practitioner: [phone] Nurse line: [phone] Keep up the good work! Testing: Labwork: Today. Go to [facility], which is 1 flight below the General Surgery Clinic. Please note that you will always receive a letter with lab results and recommendations. Please readthis letter carefully and follow recommendations. The letter also contains information regarding your next lab draw. A copy of your labwork and office visit today is sent to your primary hospice spiritual care coordinator Consider seeing a orthopedic doctor for your knee pain Wear suspenders instead of a belt to help with skin breakdown Next visit: 1 year Routine visits are done at 4.8,12, 18 and 24 months after surgery, and yearly thereafter. Please call [phone] if you do not receive an appointment [...] every month from 1-2 PM at [facility]- no registration required Nutrition and Activity apps- Baritastic, My Fitness Pal, Lose It, My Plate Internet resources: www.NanoSight www.PeopleGoal www.bariatriceating.WorkVoices www.Relaborate.WorkVoices/blog [facility] facebook page: https://www.facebook.com/[facility] TULSABariatricSurgery Books & Magazines: - Recipes [...] circular mesh (11.4 cm in diameter) at [facility] 10/15/2012 ??? Vasectomy ??? Right carpal tunnel release ~2007 ??? Septoplasty, Bilateral inferior turbinoplasty, Uvulopalatopharyngoplasty 08/25/1999 ??? Tonsillectomy ~1955 ??? Bilateral total knee arthroplasty 12/16/2002 No Known Allergies Medications 04/25/17 0759 Medication Sig Taking? 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 Questions regarding [facility] Bariatric Surgery Program patients: please call Shayy Allen APRN at [phone] or [phone]. E-mail: * Keila Hickman - 04/22/2017 9:30 AM [...] Biggest support is his son Momo. 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 Vitamin/Mineral Supplements (reported by [...] whole grain or white AM Snack Lunch [place] with tuna or chicken salad or lean [...] Parathyroid Hormone 61 15 - 65 pg/mL [facility] Blood specimen (specimen) 04/22/2017 11:18 AM EDT 04/22/2017 11:25 AM EDT Narrative Resulting Agency Comment Spec In Lab Narda Cabelloey ICU MANAGER CHEMISTRY ORDERAB LES Performing Organization Address City/[facility]/ZIP Co de Phone Number [facility] [place] [address] * (ABNORMAL) Vitamin B12 (04/22/2017 11:18 AM EDT) Vitamin B12 1,379(H) 207 - 974 pg/mL [facility] Blood specimen (specimen) 04/22/2017 11:18 AM EDT 04/22/2017 11:25 AM EDT Narrative Resulting Agency Comment Spec In Lab Narda Paniaguaigley ICU MANAGER CHEMISTRY ORDERAB LES Performing Organization Address [facility]/ZIP Co de Phone Number [facility] [place] [address] * Vitamin D, 25-Hydroxy (04/22/2017 11:18 AM EDT) Vitamin D Total 25 OH 48 30 - 100 ng/mL [facility] Comment: Deficient <10 ng/mL Insufficient 10 to 29 ng/mL Sufficient 30 to 100 ng/mL Potential Intoxication >100 ng/mL According to the US National Osteoporosis Foundation, Vitamin D concentrations >30 ng/mL are sufficient to protect bone health. ??The National Kidney Foundation has similarly stated that patients with Vitamin D concentrations <30ng/mL should be considered to be insufficient or deficient. http://Venture Incite.WorkVoices/nkf-guidelines http://[employer].WorkVoices/nejm-VitD The IDS iSYS Vitamin D Immunoassay detects both 25-OH Vitamin D2 and 25-OH Vitamin D3, but only a total Vitamin D concentration is reported. Blood specimen (specimen) 04/22/2017 11:18 AM EDT 04/22/2017 1:19 PM EDT Narrative Resulting Agency Comment Spec In Lab Narda Keita Tiffany ICU MANAGER CHEMISTRY ORDERAB LES Performing Organization Address City/[facility]/ZIP Co de Phone Number [facility] [place] [address] * (ABNORMAL) Ferritin (04/22/2017 11:18 AM EDT) Ferritin 27(L) 30 - 400 ng/mL [facility] Comment: Pediatric reference ranges not verified at [facility], interpret with caution. Reference ranges for females greater than 50 years of age approach values for men, i.e., 30-400 ng/mL. Blood specimen (specimen) 04/22/2017 11:18 AM EDT 04/22/2017 11:25 AM EDT Narrative Resulting Agency Comment Spec In Lab Narda T Tiffany ICU MANAGER CHEMISTRY ORDERAB LES Performing Organization Address City/[facility]/ZIP Co de Phone Number [facility] [place] [address] * (ABNORMAL) Iron and TIBC (04/22/2017 11:18 AM EDT) [facility] Iron 55 45 - 160 mcg/dL [facility] TIBC 353 250 - 450 mcg/dL [facility] Iron Saturation 16(L) 20 - 50 % [facility] Blood specimen (specimen) 04/22/2017 11:18 AM EDT 04/22/2017 11:25 AM EDT Narrative Resulting Agency Comment Spec In Lab Nardadorys Paniaguaigley ICU MANAGER CHEMISTRY ORDERAB LES Performing Organization Address City/[facility]/ZIP Co de Phone Number [facility] [place] [address] * (ABNORMAL) Comprehensive metabolic panel (non-fasting) (04/22/2017 11:18 AM EDT) [facility] Glucose 123 65 - 199 mg/dL [facility] Comment:Diabetes: >=200 mg/d L plus symptoms Blood Urea Nitrogen 23(H) 10 - 20 mg/dL [facility] Creatinine 1.05 0.80 - 1.50 mg/dL [facility] Comment: Please note that the pediatric reference intervals supplied above were not validated at [facility]. Results from pediatric patients should be interpreted in conjunction to the patient's age, height and muscle mass. Sodium 142 135 - 145 mmol/L [facility] Potassium 4.0 3.5 - 5.0 mmol/L [facility] Comment: Please note: ??Patients with WBC >100,000 may have falsely elevated Potassium levels. ??For accurate Potassium quantification in these patients send serum separator tube (gold top) for subsequent determinations. ??Contact the Clinical Chemistry Laboratory if there are any questions. Chloride 101 98 - 107 mmol/L [facility] Carbon Dioxide 25 22 - 31 mmol/L [facility] Anion Gap 16(H) 5 - 15 mmol/L [facility] Calcium 9.3 8.5 - 10.5 mg/dL [facility] Protein, Total 7.4 6.1 - 8.0 gm/dL [facility] Albumin 4.3 3.2 - 5.2 gm/dL [facility] Aspartate Aminotransferase 13 0 - 39 unit/L [facility] Alanine Aminotransferase 20 0 - 55 unit/L [facility] Alkaline Phosphatase 58 40 - 120 unit/L [facility] Bilirubin, Total 0.5 0.2 - 1.3 mg/dL [facility] Est Glomerular Filtration Rate >60 >=60 [facility] Comment: This estimated GFR (eGFR) [...] the following links into your internet browser. http://[employer].WorkVoices/DHnkdep http://[employer].WorkVoices/DHMCnkf Blood specimen (specimen) 04/22/2017 11:18 AM EDT 04/22/2017 11:25 AM EDT Narrative Resulting Agency Comment Spec In Lab Narda T Tiffany ICU MANAGER CHEMISTRY ORDERAB LES Performing Organization Address City/[facility]/ZIP Co de Phone Number [facility] [place] [address] * (ABNORMAL) Hemogram (04/22/2017 11:18 AM EDT) White Blood Cell 7.0 4.0 - 9.5 x10(3)/mc L [facility] Red Blood Cell 4.49(L) 4.58 - 5.54 x10(6)/mc L [facility] Hemoglobin 12.7(L) 13.7 - 16.5 gm/dL [facility] Hematocrit 39.2(L) 40.5 - 48.5 % [facility] Mean Cell Volume 87.3 82.9 - 93.1 fL [facility] Mean Cell Hemoglobin 28.3 27.5 - 32.1 pg [facility] Mean Cell Hemoglobin Concentration 32.4 32.0 - 35.7 gm/dL [facility] Platelet 194 145 - 357 x10(3)/mc L [facility] RDW Standard Deviation 48.4(H) 36.0 - 45.0 fL [facility] RDW coefficient of variation 15.1(H) 11.4 - 13.8 % [facility] Mean Platelet Volume 10.0 7.6 - 12.9 fL [facility] NRBC% auto 0.0 % [facility] NRBC Absolute 0.000 0.000 - 0.000 x10(3)/mc L [facility] Blood specimen (specimen) 04/22/2017 11:18 AM EDT 04/22/2017 11:25 AM EDT Narrative Resulting Agency Comment Spec In Lab Narda Allen APRN HEMATOLOGY ORDERA BLES Performing Organization Address City/[facility]/ZIP Co de Phone Number [facility] [place] [address] documented in this encounter Visit Diagnoses Diagnosis Disorder of iron metabolism Other disorders of iron metabolism Status post bariatric surgery Bariatric surgery status Intestinal malabsorption, unspecified type Essential hypertension Unspecified essential hypertension Obstructive sleep apnea Obstructive sleep apnea (adult) (pediatric) Vitamin D deficiency Unspecified vitamin D deficiency documented in this encounter Care Teams Rigger Helper Relationship Specialty Start Date End Date Dominic Restrepo MD [address] [place] [address] PCP - General Family Medicine 04/22/17 03/30/21 documented as of this encounter
--- OUTSIDE RECORDS SUMMARY | 2024-08-05 21:25 | XMS_ITS | Encounter Summary ---
Author Organization [facility] [place] [address] Care Team Providers Care Ethics Instructor Name Role Phone David Massey MD Primary Care Provider [phone] Encounter Details Date Type Department Care Team ([facility] Contact Info) Description 01/17/2022 Telephone [place] [id number] Ene Dao RN Social History Tobacco Use [...] Dao RN - 01/17/2022 11:54 AM EDT Insurance Coordinator took a phone call from this patient's PCP office asking about the patient's unna boot change. The PCP office stated that they would be willing to change it for the patient on a weekly basis asit's much closer to patient than coming here. Insurance Coordinator stated that would be fine and our chemical process operator would reach out to him to schedule surery once a date was available. documented in this encounter Plan of Treatment Not on file documented as of this encounter Visit Diagnoses Not on filedocumented in this encounter Care Teams Ethics Instructor Relationship Specialty Start Date End Date David Massey MD [address] [place] [address] PCP - General Emergency Medicine 03/31/21 documented as of this encounter
--- OUTSIDE RECORDS SUMMARY | 2024-08-05 21:25 | XMS_ITS | Encounter Summary ---
[place] [address] Care Team Providers Care Bicycle Inspector Name Role Phone David Massey MD Primary Care Provider [phone] Encounter Details Date Type Department Care Team (Late st Contact Info) Description 10/09/2021 11:00 AM EST TH Visit (TeleHealth) [place] [address] Social History Tobacco Use Types Packs/Day Years [...] on filedocumented in this encounter Care Teams Bicycle Inspector Relationship Specialty Start Date End Date David Massey MD [address] [place] [address] PCP - General Emergency Medicine 03/31/21 documented as of this encounter
--- OUTSIDE RECORDS SUMMARY | 2024-08-05 21:25 | XMS_ITS | Encounter Summary ---
Author Organization [facility] Address [facility] [place] [address] Care Team Providers Care Staff Physician Name Role Phone David Massey MD Primary Care Provider [phone] Reason for Visit * Auth/Cert Specialty Diagnoses [...] Expiration Date Visits Re quested Visits Authorized [id number] 1 1 Encounter Details Date Type Department Care Team (Latest Contact Info) Description 10/13/2021 11:05 AM EST - 10/13/2021 1:40 PM [facility] Hospital Encounter [place] [address] Romario Womack Jr., MD [facility] [place] [address] History of renal stone ~1980s Discharge Disposition: [...] closest emergency room or call the hospital rubber extrusion machine operator at [phone] and ask for physician maori liaison adviser covering for your physician. Questions or problems after 5pm or on a weekend: Call the [facility] rubber extrusion machine operator at and ask for the physician maori liaison adviser covering for your doctor. At 11:30 am [...] pain medications The number for questions is [phone] before 5 PM weekdays and [phone] after 5 PM and weekends. Activity level: [...] stone in 2-3 weeks time. Please call [phone] if you do not hear from the [...] Latest Ref Range: Clear Turbid (A) Spec [place] UA Latest Ref Range: 1.005 - 1.030 [...] Latest Ref Range: <=4 /HPF 3 Yeast [place] UA Latest Ref Range: None /HPF Few (A) Culture Reflexed Unknown Yes Anticoagulation: Yes Past Medical History: Diagnosis Date ??? Blood disorder ??? Circulatory disease ??? Diabetes Past Surgical History: Procedure Laterality Date ??? CHOLECYSTECTOMY ??? PRO EXCISE EXCESS SKIN TISSUE, ABDOMEN N/A 05/17/2016 ABDOMINOPLASTY performed by Adis Membreno MD at [facility] MAIN OR ??? PRO LAP GASTRIC BYPASS/KEYSHA-EN-Y 02/08/2014 @LAPAROSCOPIC GASTROPLASTY, performed by Wally Pfeiffer MD at [facility] OR ??? PRO LAP, DIAGNOSTIC ABDOMEN 02/10/2014 LAPAROSCOPY, DIAGNOSTIC, ABDOMEN performed by Wally Pfeiffer MD at [facility] OR ??? PRO REPAIR INCISIONAL HERNIA, REDUCIBLE N/A 05/17/2016 REPAIR INITIAL INCISIONAL OR VENTRAL HERNIA REDUCIBLE [facility] ??? PRO UNLISTED LAPAROSCOPIC PROCEDURE ESOPHAGUS 02/08/2014 LAPAROSCOPIC REVISION OF DELROY FUNDOPLASTY performed by Wally Pfeiffer MD at [facility] OR ??? PRO UPPER GI ENDOSCOPY, BIOPSY 12/11/2013 UPPER GASTROINTESTINAL ENDOSCOPY,WITH BIOPSY SINGLE OR MULTIPLE performed by W[facility]iffer MDat [facility] ENDOSCOPY ??? PRO UPPER GI ENDOSCOPY, DIAGNOSTIC 12/25/2013 EGD, UPPER GI ENDOSCOPY performed by Wally Pfeiffer MD at [facility] ENDOSCOPY ??? PRO UPPER GI ENDOSCOPY, DIAGNOSTIC 02/08/2014 ENDOSCOPY, UPPER GI, DIAGNOSTIC, WITH OR WITHOUT SPECIMENS performed by Wally Pfeiffer MD at [facility] MA[facility] OR ??? TONSILLECTOMY ??? TOTAL KNEE [...] Operative Note Patient Name: Eugene Purvis : [id number] MR#: [id number] Case Date: 10/13/2021 Surgeon: Surgeon(s) and Role: [...] Operative Note Patient Name: Eugene Purvis : [id number] MR#: [id number] Case Date: 10/13/2021 Surgeon: Surgeon(s) and Role: * Romario Womack Jr., MD - Primary * Joes C Skaggs MD - Resident Preoperative diagnosis: [...] 12:4 4 PM EST Cystourethroscopy, Ureter Catheter ([id number]) 10/13/2021 12:04 PM EST stone Cystoscopy, Insert Ureteral Stent ([id number]) 10/13/2021 12:04 PM EST stone URINALYSIS MICROSCOPIC [...] Greater than 50,000 cfu/mL Roxy glabrata (A) [facility] Gram Stain Many Neutrophils seen Moderate Yeast seen (A) [facility] Organism Roxy albicans(A) [facility] Organism Roxy glabrata(A) [facility] Organism Yeast(A) [facility] Cystoscopic Urine 10/13/2021 12:45 PM EST 10/13/2021 2:02 PM EST Comment:Left renal urine for culture and gram stain Narrative Resulting Agency Comment Spec In Lab Romario Womack Jr., MD MICROBIOLOGY - GEN ERAL ORDERABLES [facility] [place] [address] * (ABNORMAL) Urine culture Cystoscopic Urine (10/13/2021 12:44 PM EST) Urine Culture Greater than 50,000 cfu/mL Roxy glabrata 1,000-9,000 cfu/ml Roxy albicans (A) [facility] Organism Roxy glabrata(A) [facility] Organism Roxy albicans(A) [facility] Cystoscopic Urine 10/13/2021 12:44 PM EST 10/13/2021 2:01 PM EST Comment:Cystoscopic bladder urine for culture Narrative Resulting Agency Comment Spec In Lab Romario Womack Jr., MD MICROBIOLOGY - GEN ERAL ORDERABLES [facility] [place] [address] * (ABNORMAL) Urine culture (10/13/2021 11:04 AM EST) Urine Culture 10,000-49,00 0 cfu/ml Roxy glabrata 1,000-9,000 cfu/ml Roxy albicans 1,000-9,000 cfu/ml mixed mucosal red (A) [facility] Organism Roxy glabrata(A) [facility] Organism Roxy albicans(A) [facility] Clean Catch Urine 10/13/2021 11:04 AM EST 10/13/2021 2:26 PM EST Narrative Resulting Agency Comment Spec In Lab Jose C Skaggs MD MICROBIOLOGY - GENERAL ORDERABLES [facility] [place] [address] * (ABNORMAL) Urinalysis Microscopic Exam (10/13/2021 11:04 AM EST) RBC, Urine 15(H) 0 - 3 /HPF [facility] WBC, Urine >100(H) 0 - 3 /HPF [facility] Bacteria, Urine Rare(A) None /HPF [facility] Budding Yeast, Urine Few(A) None /HPF [facility] Squamous Epithelial Cells Raw Data, Urine 3 <=4 /HPF [facility] Hyaline Casts, Urine 2 0 - 2 /LPF [facility] Clean Catch Urine 10/13/2021 11:04 AM EST 10/13/2021 11:15 AM EST Narrative Resulting Agency Comment Spec In Lab Jose C Skaggs MD URINE ORDERAB LES [facility] [place] [address] * (ABNORMAL) Urinalysis with reflex Culture (10/13/2021 11:04 AM EST) Glucose, Urine Dipstick 100(A) Negative mg/dL [facility] Protein, Urine Dipstick 30(A) Negative mg/dL [facility] Bilirubin, Urine Dipstick Negative Negative mg/dL [facility] Comment: Clinical correlation required for positive Urine Bilirubin results as false positive may occur with some drugs and drug related products. If a false positive is suspected a serum total bilirubin should be considered if clinically indicated. Urobilinogen, Urine Dipstick Normal Normal mg/dL [facility] pH, Urn (dipstick) 5.0 5.0 - 8.0 [facility] Blood, Urine Dipstick Small(A) Negative mg/dL [facility] Ketone, Urine Dipstick Negative Negative mg/dL [facility] Nitrite, Urine Dipstick Negative Negative [facility] Leukocytes, Urine Dipstick Large(A) Negative [facility] Appearance, Urine Dipstick Turbid(A) Clear [facility] Specific [place] Urine Automated 1.013 1.005 - 1.030 [facility] Color, Urine Dipstick Yellow Yellow [facility] Reflex to Culture Yes [facility] Clean Catch Urine 10/13/2021 11:04 AM EST 10/13/2021 11:15 AM EST Narrative Resulting Agency Comment Spec In Lab Romario Womack Jr., MD URINE ORDERABLES [facility] [place] [address] * POCT Fingerstick Glucose (10/13/2021) Glucose, POC [...] 100 mL infusion (COMPLETED) 2 g, Intravenous, DUKEY RIDER TO O.R., 1 dose, On Sat10/13/21 at [...] Routine documented in this encounter Care Teams Staff Physician Relationship Specialty Start Date End Date David Massey MD [address] [place] [address] PCP - General Emergency Medicine 03/31/21 documented as of this encounter
--- OUTSIDE RECORDS SUMMARY | 2024-08-05 21:25 | XMS_ITS | Encounter Summary ---
Author Organization [facility] Address [facility] [place] [address] Care Team Providers Care Tableau Administrator Name Role Phone Dominic Restrepo MD Primary Care Provider [phone] Encounter Details Date Type Department Care Team (Late st Contact Info) Description 04/22/2017 11:00 AM EDT Office [place] [address] Stephanie Butcher MD [facility] [place] [address] Ventral hernia without obstruction or gangrene Social [...] gangrene documented in this encounter Care Teams Tableau Administrator Relationship Specialty Start Date End Date Dominic Restrepo MD [address] [place] [address] PCP - General Family Medicine 04/22/17 03/30/21 documented as of this encounter
--- OUTSIDE RECORDS SUMMARY | 2024-08-05 21:25 | XMS_ITS | Encounter Summary ---
Author Organization [facility] Address [facility] [place] [address] Care Team Providers Care Breeder Hen Service Technician Name Role Phone Dominic Restrepo MD Primary Care Provider [phone] Encounter Details Date Type Department Care Team (Late st Contact Info) Description 03/25/2019 2:38 PM EDT - 03/25/2019 11:59 PM EDT Hospital Encounter XRay at [address] [place] [address] Amish Han MD [facility] [place] [address] Right knee pain, unspecified chronicity Discharge Disposition: [...] XR Knee Standing Alignment AP Lat [place] Right (03/25/2019 3:14 PM EDT) Anatomical Region Laterality Modality Right Digital Radiogra phy Impressions 03/25/2019 4:24 PM EDT No complication or change involving the knee prostheses. Thank you for letting us participate in the care of this patient. For questions regarding this report, please contact the number below. ? Electronically signed by: Rafael Gaitan [facility] ([phone]), at 03/25/2019 4:24 PM Narrative 03/25/2019 4:24 [...] chronicity documented in this encounter Care Teams Breeder Hen Service Technician Relationship Specialty Start Date End Date Dominic Restrepo MD [address] [place] [address] PCP - General Family Medicine 04/22/17 03/30/21 documented as of this encounter
--- OUTSIDE RECORDS SUMMARY | 2024-08-05 21:25 | XMS_ITS | Encounter Summary ---
[place] [address] Care Team Providers Care Hand Binder Cutter Name Role Phone David Massey MD Primary Care Provider [phone] Reason for Visit * Auth/Cert Specialty Diagnoses / Procedures Referred By Sonal dawson Referred To Contact Diagnoses venous insufficiency with stasis ulcers Procedures PRO ENDOVENOUS RF, 1ST VEIN ENDOVENOUS ABLATION THERAPY OF INCOMPETENT VEIN, EXTREMITY, FIRST VEIN (WRVU 5.3) Wally López III, MD [address] [place] [address] [facility] Referral ID Status Reason Start Date Expiration Date Visits Re quested Visits Authorized [id number] 1 1 Encounter Details Date Type Department Care Team ([facility] st Contact Info) Description 05/02/2022 Surgery [place] [address] Wally López III, MD [address] [place] [address] Not Performed ENDOVENOUS ABLATION THERAPY OF INCOMPETENT [...] extremities documented in this encounter Care Teams Hand Binder Cutter Relationship Specialty Start Date End Date David Massey MD [address] [place] [address] PCP - General Emergency Medicine 03/31/21 documented as of this encounter
--- OUTSIDE RECORDS SUMMARY | 2024-08-05 21:25 | XMS_ITS | Encounter Summary ---
Author Organization [facility] Address [facility] [place] [address] Care Team Providers Care Construction Engineer Name Role Phone David Massey MD Primary Care Provider [phone] Reason for Visit * Auth/Cert Specialty Diagnoses / Procedures Referred By Sonal dawson Referred To Contact Diagnoses Left renal stone LEFT STONE Procedures PRO CYSTO/URETERO/PYELOSCOPY W/LITHOTRIPSY CYSTOURETEROSCOPY, LITHOTRIPSY (WRVU 7.5) MODIFIER HOLMIUM LASER Referral ID Status Reason Start Date Expiration Date Visits Re quested Visits Authorized [id number] 1 1 Encounter Details Date Type Department Care Team (Latest Contact Info) Description 03/09/2022 11:40 AM EDT - 03/09/2022 3:40 PM EDT Hospital Encounter [place] [address] Celia Womack Jr., MD [facility] [place] [address] Nephrolithiasis Discharge Disposition: Home Social History Tobacco [...] closest emergency room or call the hospital automatic pad making machine operator at [phone] and ask for physician merchandising execution manager covering for your physician. Questions or problems after 5pm or on a weekend: Call the [facility] automatic pad making machine operator at and ask for the physician merchandising execution manager covering for your doctor. * Patient Instructions* Paulette Pickard MD - 03/08/2022 11:52 AM EDT Discharge Instructions after Cystoscopy Call your doctor for: Fevers greater than 101.3F Severe nausea or vomiting Increasing pain not controlled by pain medications Inability to urinate The number for questions is [phone] before 5 PM weekdays and [phone] after 5 PM and weekends if questions [...] renal ultrasound before your appointment. Please call [phone] if you do not receive your appointment. [...] bid x7 days and Keflex 500mg tid [id number]. He presents today for cystoscopy, left ureteroscopy [...] by Celia Womack Jr., MD at [facility] ??? PRO CYSTOURETHROSCOPY, URETER CATHETER Left 10/13/2021 CYSTO, RETROGRADE, URETEROPYELOGRAPHY (WRVU 2.37) performed by Celia Womack Jr., MD at [facility] ??? PRO EXCISE EXCESS SKIN TISSUE, [...] MULTIPLE performed by Wally Pfeiffer MDat [facility] ENDOSCOPY ??? PRO UPPER GI ENDOSCOPY, DIAGNOSTIC 12/25/2013 EGD, UPPER GI ENDOSCOPY performed by Wally Pfeiffer MD at [facility] ENDOSCOPY ??? PRO UPPER GI [...] Operative Note Patient Name: Eugene Rueda : [id number] MR#: [id number] Case Date: 03/09/2022 Surgeon: Surgeon(s) and Role: [...] Jr., MD - 03/09/2022 2:17 PM EDT [facility] Oper[place] Note Patient Name: Eugene Rueda : [id number] MR#: [id number] Case Date: 03/09/2022 Surgeon: Surgeon(s) and Role: [...] bid x7 days and Keflex 500mg tid [id number]. ?? He presents today for cystoscopy, left [...] CULTURE Routine 03/09/2022 2:47 PM EDT Cystourethroscopy ([id number]) 2021 1:57 PM EDT LEFT STONE documented [...] EDT) Urine Culture 1,000-9,000 cfu/ml Roxy glabrata(A) [facility] Organism Roxy glabrata(A) [facility] Cystoscopic Urine 03/09/2022 2:47 PM EDT 03/09/2022 4:00 PM EDT Narrative Resulting Agency Comment Spec In Lab Celia Womack Jr., MD MICROBIOLOGY - GEN ERAL ORDERABLES [facility] [place] [address] documented in this encounter Visit Diagnoses Diagnosis [...] 1222 (Given - Provid er: Kelsie P Izard, RN) ceFAZolin (Ancef) 2 g in dextrose 5% 100 mL infusion (COMPLETED) 2 g, Intravenous, AUTOMOBILE CONTRACT CLERK TO O.R., 1 dose, On Sat03/09/22 at 1215, Administer over 30 Minutes, Day of Surgery (Day of Procedure), Indication for (Active or Suspected): Prophylaxis 1356 (Given - Provid er: Odalis Montes CRNA) fluconazole (Diflucan) 400 mg in sodium chloride 0.9% 200 mL infusion (COMPLETED) 400 mg, Intravenous, AUTOMOBILE CONTRACT CLERK TO O.R., 1 dose, On Sat03/09/22 at [...] CRNA) documented in this encounter Care Teams Construction Engineer Relationship Specialty Start Date End Date David Massey MD [address] [place] [address] PCP - General Emergency Medicine 03/31/21 documented as of this encounter
--- OUTSIDE RECORDS SUMMARY | 2024-08-05 21:25 | XMS_ITS | Encounter Summary ---
Author Organization [facility] [address] Care Team Providers Care Dermatologist And Dermatopathologist Name Role Phone David Massey MD Primary Care Provider [phone] Reason for Referral * Consultation (Routine) - Closed Specialty Diagnoses / Procedures Referred By Sonal dawson Referred To Contact Vascular Surgery Diagnoses Chronic venous insufficiency David Massey MD [address] [place] [address] [facility] Vascular Surg [address] [place] [address] Referral ID Status Reason Start Date Expiration Date V isits Requested Visits Authorized [id number] Closed Consult, Test & Treat PCP Updated and/or Approved 12/05/2021 12/05/2022 12 12 Encounter Details Date Type Department Care Team (Latest Contact Info) Description 12/05/2021 Transcribe [place] [address] David Massey MD [address] [place] [address] Chronic venous insufficiency Social History Tobacco [...] insufficiency documented in this encounter Care Teams Dermatologist And Dermatopathologist Relationship Specialty Start Date End Date David Massey MD [address] [place] [address] PCP - General Emergency Medicine 03/31/21 documented as of this encounter
--- OUTSIDE RECORDS SUMMARY | 2024-08-05 21:25 | XMS_ITS | Encounter Summary ---
Author Organization [facility] [place] [address] Care Team Providers Care Immigration Case Manager Name Role Phone David Massey MD Primary Care Provider [phone] Reason for Visit * Auth/Cert Specialty Diagnoses / Procedures Referred By Sonal dawson Referred To Contact Diagnoses Left renal stone LEFT STONE Procedures PRO CYSTO/URETERO/PYELOSCOPY W/LITHOTRIPSY CYSTOURETEROSCOPY, LITHOTRIPSY (WRVU 7.5) MODIFIER HOLMIUM LASER Referral ID Status Reason Start Date Expiration Date Visits Re quested Visits Authorized [id number] 1 1 Encounter Details Date Type Department Care Team (Late st Contact Info) Description 03/09/2022 1:18 PM EDT - 03/09/2022 3:38 PM EDT Surgery Outpatient [place] [address] Celia Womack Jr., MD [facility] [place] [address] CYSTO, CYSTOURETHROSCOPY, DIAGNOSTIC (WRVU 1.53) Social History [...] closest emergency room or call the hospital light oil operator at [phone] and ask for physician industrial methods consultant covering for your physician. Questions or problems after 5pm or on a weekend: Call the [facility] light oil operator at and ask for the physician industrial methods consultant covering for your doctor. * Patient Instructions* Paulette Pickard MD - 03/08/2022 11:52 AM EDT Discharge Instructions after Cystoscopy Call your doctor for: Fevers greater than 101.3F Severe nausea or vomiting Increasing pain not controlled by pain medications Inability to urinate The number for questions is [phone] before 5 PM weekdays and [phone] after 5 PM and weekends if questions [...] renal ultrasound before your appointment. Please call [phone] if you do not receive your appointment. [...] bid x7 days and Keflex 500mg tid [id number]. He presents today for cystoscopy, left ureteroscopy [...] performed by Celia Womack Jr., MD at [facility] ??? PRO CYSTOURETHROSCOPY, URETER CATHETER Left 10/13/2021 CYSTO, RETROGRADE, URETEROPYELOGRAPHY (WRVU 2.37) performed by Celia Womack Jr., MD at [facility] ??? PRO EXCISE EXCESS SKIN [...] [facility] PRO UNLISTED LAPAROSCOPIC PROCEDURE ESOPHAGUS 02/08/2014 LAPAROSCOPIC REVISION OF DELROY FUNDOPLASTY performed by Wally Pfeiffer MD at [facility] OR ??? PRO UPPER GI ENDOSCOPY, BIOPSY 12/11/2013 UPPER GASTROINTESTINAL ENDOSCOPY,WITH BIOPSY SINGLE OR MULTIPLE performed by Wally Pfeiffer MDat [facility] ENDOSCOPY ??? PRO UPPER GI ENDOSCOPY, DIAGNOSTIC 12/25/2013 EGD, UPPER GI ENDOSCOPY performed by Wally Pfeiffer MD at [facility] ENDOSCOPY ??? PRO UPPER GI ENDOSCOPY, [...] Operative Note Patient Name: Eugene Rueda : [id number] MR#: [id number] Case Date: 03/09/2022 Surgeon: Surgeon(s) and Role: [...] Jr., MD - 03/09/2022 2:17 PM EDT [facility] Operative Note Patient Name: Eugene Rueda : [id number] MR#: [id number] Case Date: 03/09/2022 Surgeon: Surgeon(s) and Role: [...] bid x7 days and Keflex 500mg tid [id number]. ?? He presents today for cystoscopy, left [...] CULTURE Routine 03/09/2022 2:47 PM EDT Cystourethroscopy ([id number]) 2021 1:57 PM EDT LEFT STONE documented [...] EDT) Urine Culture 1,000-9,000 cfu/ml Roxy glabrata(A) [facility] Organism Roxy glabrata(A) [facility] Cystoscopic Urine 03/09/2022 2:47 PM EDT 03/09/2022 4:00 PM EDT Narrative Resulting Agency Comment Spec In Lab Celia Womack Jr., MD MICROBIOLOGY - GEN ERAL ORDERABLES [facility] [place] [address] documented in this encounter Visit Diagnoses Not [...] 100 mL infusion (COMPLETED) 2 g, Intravenous, ANALYTICS DIRECTOR TO O.R., 1 dose, On Sat03/09/22 at 1215, Administer over 30 Minutes, Day of Surgery (Day of Procedure), Indication for (Active or Suspected): Prophylaxis 1356 (Given - Provid er: Odalis Montes CRNA) fluconazole (Diflucan) 400 mg in sodium chloride 0.9% 200 mL infusion (COMPLETED) 400 mg, Intravenous, ANALYTICS DIRECTOR TO O.R., 1 dose, On Sat03/09/22 [...] CRNA) documented in this encounter Care Teams Immigration Case Manager Relationship Specialty Start Date End Date David Massey MD [address] [place] [address] PCP - General Emergency Medicine 03/31/21 documented as of this encounter
--- OUTSIDE RECORDS SUMMARY | 2024-08-05 21:25 | XMS_ITS | Encounter Summary ---
Author Organization [facility] Address [facility] [place] [address] Care Team Providers Care Palletizer Name Role Phone David Massey MD Primary Care Provider [phone] Reason for Visit * Auth/Cert Specialty Diagnoses [...] Expiration Date Visits Re quested Visits Authorized [id number] 1 1 Encounter Details Date Type Department Care Team ([facility] Contact Info) Description 10/13/2021 11:10 AM EST - 10/13/2021 1:00 PM EST Surgery Outpatient [place] [address] Romario Womack Jr., MD [facility] [place] [address] CYSTO, STENT PLACEMENT (WRVU 2.82) Social History [...] closest emergency room or call the hospital electrical logging operator at [phone] and ask for physician television agent covering for your physician. Questions or problems after 5pm or on a weekend: Call the [facility] electrical logging operator at and ask for the physician television agent covering for your doctor. At 11:30 am [...] pain medications The number for questions is [phone] before 5 PM weekdays and [phone] after 5 PM and weekends. Activity level: [...] stone in 2-3 weeks time. Please call [phone] if you do not hear from the [...] Latest Ref Range: Clear Turbid (A) Spec [place] UA Latest Ref Range: 1.005 - 1.030 [...] Latest Ref Range: <=4 /HPF 3 Yeast [place] UA Latest Ref Range: None /HPF Few (A) Culture Reflexed Unknown Yes Anticoagulation: Yes Past Medical History: Diagnosis Date ??? Blood disorder ??? Circulatory disease ??? Diabetes Past Surgical History: Procedure Laterality Date ??? CHOLECYSTECTOMY ??? PRO EXCISE EXCESS SKIN TISSUE, ABDOMEN N/A 05/17/2016 ABDOMINOPLASTY performed by Adis Membreno MD at [facility] MA[facility] OR ??? PRO LAP GASTRIC [...] [facility]?? PRO UNLISTED LAPAROSCOPIC PROCEDURE ESOPHAGUS 02/08/2014 LAPAROSCOPIC REVISION OF DELROY FUNDOPLASTY performed by Wally Pfeiffer MD at [facility] OR ??? PRO UPPER GI ENDOSCOPY, BIOPSY 12/11/2013 UPPER GASTROINTESTINAL ENDOSCOPY,WITH BIOPSY SINGLE OR MULTIPLE performed by Wally Pfeiffer MDat [facility] ENDOSCOPY ??? PRO UPPER GI ENDOSCOPY, DIAGNOSTIC 12/25/2013 EGD, UPPER GI ENDOSCOPY performed by Wally Pfeiffer MD at [facility] ENDOSCOPY ??? PRO UPPER GI ENDOSCOPY, [...] Operative Note Patient Name: Eugene Purvis : [id number] MR#: [id number] Case Date: 10/13/2021 Surgeon: Surgeon(s) and Role: [...] Operative Note Patient Name: Eugene Purvis : [id number] MR#: [id number] Case Date: 10/13/2021 Surgeon: Surgeon(s) and Role: [...] 12:4 4 PM EST Cystourethroscopy, Ureter Catheter ([id number]) 10/13/2021 12:04 PM EST stone Cystoscopy, Insert Ureteral Stent ([id number]) 10/13/2021 12:04 PM EST stone URINALYSIS MICROSCOPIC [...] Greater than 50,000 cfu/mL Roxy glabrata (A) [facility] Gram Stain Many Neutrophils seen Moderate Yeast seen (A) [facility] Organism Roxy albicans(A) [facility] Organism Roxy glabrata(A) [facility] Organism Yeast(A) [facility] Cystoscopic Urine 10/13/2021 12:45 PM EST 10/13/2021 2:02 PM EST Comment:Left renal urine for culture and gram stain Narrative Resulting Agency Comment Spec In Lab Romario Womack Jr., MD MICROBIOLOGY - GEN ERAL ORDERABLES [facility] [place] [address] * (ABNORMAL) Urine culture Cystoscopic Urine (10/13/2021 12:44 PM EST) Urine Culture Greater than 50,000 cfu/mL Roxy glabrata 1,000-9,000 cfu/ml Roxy albicans (A) [facility] Organism Roxy glabrata(A) [facility] Organism Roxy albicans(A) [facility] Cystoscopic Urine 10/13/2021 12:44 PM EST 10/13/2021 2:01 PM EST Comment:Cystoscopic bladder urine for culture Narrative Resulting Agency Comment Spec In Lab Romario Womack Jr., MD MICROBIOLOGY - GEN ERAL ORDERABLES [facility] [place] [address] * (ABNORMAL) Urine culture (10/13/2021 11:04 AM EST) Urine Culture 10,000-49,00 0 cfu/ml Roxy glabrata 1,000-9,000 cfu/ml Roxy albicans 1,000-9,000 cfu/ml mixed mucosal red (A) [facility] Organism Roxy glabrata(A) [facility] Organism Roxy albicans(A) [facility] Clean Catch Urine 10/13/2021 11:04 AM EST 10/13/2021 2:26 PM EST Narrative Resulting Agency Comment Spec In Lab Jose C Skaggs MD MICROBIOLOGY - GENERAL ORDERABLES [facility] [place] [address] * (ABNORMAL) Urinalysis Microscopic Exam (10/13/2021 11:04 AM EST) RBC, Urine 15(H) 0 - 3 /HPF [facility] WBC, Urine >100(H) 0 - 3 /HPF [facility] Bacteria, Urine Rare(A) None /HPF [facility] Budding Yeast, Urine Few(A) None /HPF [facility] Squamous Epithelial Cells Raw Data, Urine 3 <=4 /HPF [facility] Hyaline Casts, Urine 2 0 - 2 /LPF [facility] Clean Catch Urine 10/13/2021 11:04 AM EST 10/13/2021 11:15 AM EST Narrative Resulting Agency Comment Spec In Lab Jose C Skaggs MD URINE ORDERAB LES [facility] [place] [address] * (ABNORMAL) Urinalysis with reflex Culture (10/13/2021 11:04 AM EST) Glucose, Urine Dipstick 100(A) Negative mg/dL [facility] Protein, Urine Dipstick 30(A) Negative mg/dL [facility] Bilirubin, Urine Dipstick Negative Negative mg/dL [facility] Comment: Clinical correlation required for positive Urine Bilirubin results as false positive may occur with some drugs and drug related products. If a false positive is suspected a serum total bilirubin should be considered if clinically indicated. Urobilinogen, Urine Dipstick Normal Normal mg/dL [facility] pH, Urn (dipstick) 5.0 5.0 - 8.0 [facility] Blood, Urine Dipstick Small(A) Negative mg/dL [facility] Ketone, Urine Dipstick Negative Negative mg/dL [facility] Nitrite, Urine Dipstick Negative Negative [facility] Leukocytes, Urine Dipstick Large(A) Negative [facility] Appearance, Urine Dipstick Turbid(A) Clear [facility] Specific [place] Urine Automated 1.013 1.005 - 1.030 [facility] Color, Urine Dipstick Yellow Yellow [facility] Reflex to Culture Yes [facility] Clean Catch Urine 10/13/2021 11:04 AM EST 10/13/2021 11:15 AM EST Narrative Resulting Agency Comment Spec In Lab Romario Womack Jr., MD URINE ORDERABLES [facility] [place] [address] * POCT Fingerstick Glucose (10/13/2021) Glucose, POC [...] 100 mL infusion (COMPLETED) 2 g, Intravenous, AVIONICS MANAGER TO O.R., 1 dose, On Sat10/13/21 at [...] Routine documented in this encounter Care Teams Palletizer Relationship Specialty Start Date End Date David Massey MD [address] [place] [address] PCP - General Emergency Medicine 03/31/21 documented as of this encounter
--- OUTSIDE RECORDS SUMMARY | 2024-08-05 21:25 | XMS_ITS | Encounter Summary ---
Author Organization [facility] [place] [address] Care Team Providers Care Group Underwriter Name Role Phone David Massey MD Primary Care Provider Encounter Details Date Type Department Care Team (Late st Contact Info) Description 10/16/2021 [place] [phone] Luba Lambert LNA Social History Tobacco Use [...] on filedocumented in this encounter Care Teams Group Underwriter Relationship Specialty Start Date End Date David Massey MD [address] [place], [place] [id number] (work) PCP - General Emergency Medicine 03/31/21 documented as of this encounter
--- OUTSIDE RECORDS SUMMARY | 2024-08-05 21:25 | XMS_ITS | Encounter Summary ---
[place] [address] Care Team Providers Care Slps Name Role Phone Dominic Restrepo MD Primary Care Provider [phone] Encounter Details Date Type Department Care Team (Late st Contact Info) Description 04/22/2017 Telephone [place] [phone] Tracy Joy Social History Tobacco Use Types [...] 04/22/2017 2:55 PM EDT Received notes from [facility] dated 02/06/17, put in 's inbasket documented in this encounter Plan of Treatment Not on file documented as of this encounter Visit Diagnoses Not on filedocumented in this encounter Care Teams Slps Relationship Specialty Start Date End Date Dominic Restrepo MD [address] [place] [address] PCP - General Family Medicine 04/22/17 03/30/21 documented as of this encounter
--- OUTSIDE RECORDS SUMMARY | 2024-08-05 21:25 | XMS_ITS | Encounter Summary ---
[place] [address] Care Team Providers Care International Nurse Name Role Phone Manolo Castro MD Primary Care Provider [phone] Encounter Details Date Type Department Care Team (Late Contact Info) Description 03/28/2017 Telephone [place] [phone] Sandie Gibbs Social History Tobacco Use Types [...] on filedocumented in this encounter Care Teams International Nurse Relationship Specialty Start Date End Date Manolo Castro MD [address] [place] [address] PCP - General 05/14/12 04/21/17 documented as of this encounter
--- OUTSIDE RECORDS SUMMARY | 2024-08-05 21:25 | XMS_ITS | Encounter Summary ---
Author Organization [facility] [place] [address] Care Team Providers Care Customer Service Specialist Name Role Phone David Massey MD Primary Care Provider [phone] Encounter Details Date Type Department Care Team ([facility] Contact Info) Description 05/23/2022 Telephone [place] [phone] Claire Stuart Social History Tobacco Use Types [...] on filedocumented in this encounter Care Teams Customer Service Specialist Relationship Specialty Start Date End Date David Massey MD [address] [place] [address] PCP - General Emergency Medicine 03/31/21 documented as of this encounter
--- OUTSIDE RECORDS SUMMARY | 2024-08-05 21:25 | XMS_ITS | Encounter Summary ---
[place] [address] Care Team Providers Care Directional Drill Operator Name Role Phone David Massey MD Primary Care Provider [phone] Reason for Referral * Consultation (Routine) - Closed Specialty Diagnoses / Procedures Referred By Sonal dawson Referred To Contact Urology Diagnoses Ureterolithiasis Urothelial carcinoma of left distal ureter David Massey MD [address] [place] [address] [facility] [place] [address] Referral ID Status Reason Start Date Expiration Date V isits Requested Visits Authorized [id number] Closed Consult, Test & Treat PCP Updated and/or Approved 01/04/2022 01/04/2023 12 12 Encounter Details Date Type Department Care Team (Latest Contact Info) Description 01/04/2022 Transcribe Orders eDH Incoming Referrals [phone] David Massey MD [address] [place] [address] Ureterolithiasis; Urothelial carcinoma of left distal [...] ureter documented in this encounter Care Teams Directional Drill Operator Relationship Specialty Start Date End Date David Massey MD [address] [place] [address] PCP - General Emergency Medicine 03/31/21 documented as of this encounter
--- OUTSIDE RECORDS SUMMARY | 2024-08-05 21:25 | XMS_ITS | Encounter Summary ---
[place] [address] Care Team Providers Care Construction Executive Name Role Phone Manolo Castro MD Primary Care Provider [phone] Reason for Visit * Reason Comments Follow Up Surgery 05/17/16 drain remova l Encounter Details Date Type Department Care Team (Latest Contact Info) Description 07/09/2016 11:00 AM EDT Clinical [place] [address] Surgery follow-up Social History Tobacco Use Types [...] symptoms please call our nurse's line at [phone] M - F 8 - 5 documented [...] surgery documented in this encounter Care Teams Construction Executive Relationship Specialty Start Date End Date Manolo Castro MD [address] [address] PCP - General 05/14/12 04/21/17 documented as of this encounter
--- OUTSIDE RECORDS SUMMARY | 2024-08-05 21:25 | XMS_ITS | Encounter Summary ---
Author Organization [facility] [place] [address] Care Team Providers Care Publicity Director Name Role Phone Manolo Castro MD Primary Care Provider [phone] Reason for Visit * Reason Comments Follow Up Surgery s/p panni 05/17/2016 Encounter Details Date Type Department Care Team (Late st Contact Info) Description 06/27/2016 9:00 AM EDT Office [place] [address] Karlene Valencia MD [facility] [place] [address] Abdominal pannus Social History Tobacco Use Types [...] adiposity documented in this encounter Care Teams Publicity Director Relationship Specialty Start Date End Date Manolo Castro MD [address] [place] [address] PCP - General 05/14/12 04/21/17 documented as of this encounter
--- OUTSIDE RECORDS SUMMARY | 2024-08-05 21:25 | XMS_ITS | Encounter Summary ---
Author [facility] [place] [address] Care Team Providers Care Systems Tester Name Role Phone David Massey MD Primary Care Provider [phone] Reason for Referral * Diagnostic Test (Routine) - Closed Specialty Diagnoses / Procedures Referred By Sonal dawson Referred To Contact Diagnoses Leg edema Procedures Venous Valvular Incomp, Bilat Legs Yanira Ha APRN [facility] [place] [address] [facility] [address] [place] [id number] Referral ID Status Reason Start Date Expiration Date V isits Requested Visits Authorized [id number] Closed Specialty Service Requested 12/05/2021 12/05/2022 1 1 Encounter Details Date Type Department Care Team (Late st Contact Info) Description 12/05/2021 Orders [place] [address] Yanira Ha APRN [facility] [place] [address] Leg edema Social History Tobacco [...] Text Report Department: Vascular Surgery Lab Patient: [id number] (EUGENE PURVIS) CPT: 69858 Referring Physician: YANIRA HA APRN ?? Indications: [...] VASCUBASE 01/10/2022 9:36 AM EDT Yanira Ha SUPERVISOR OF GUIDANCE AND TESTING VASCULAR ORDERABLE S VASCUBASE documented in this encounter Visit Diagnoses Diagnosis Leg edema Edema documented in this encounter Care Teams Systems Tester Relationship Specialty Start Date End Date David Massey MD [address] [place] [address] PCP - General Emergency Medicine 03/31/21 documented as of this encounter
--- OUTSIDE RECORDS SUMMARY | 2024-08-05 21:25 | XMS_ITS | Encounter Summary ---
Author Organization [facility] Address [facility] [place] [address] Care Team Providers Care Biology Professor Name Role Phone Manolo Castro MD Primary Care Provider [phone] Encounter Details Date Type Department Care Team (Latest Contact Info) Description 07/31/2016 9:10 AM EDT - 07/31/2016 11:59 PM EDT Hospital Encounter XRay at [address] [place] [address] Carmelo Perla MD [facility] [place] [address] H/O total knee replacement, bilateral Discharge Disposition: [...] bilateral documented in this encounter Care Teams Biology Professor Relationship Specialty Start Date End Date Manolo Castro MD [address] [place] [address] PCP - General 05/14/12 04/21/17 documented as of this encounter
--- OUTSIDE RECORDS SUMMARY | 2024-08-05 21:25 | XMS_ITS | Encounter Summary ---
[place] [address] Care Team Providers Care Creping Machine Operator Name Role Phone David Massey MD Primary Care Provider [phone] Encounter Details Date Type Department Care Team (Late st Contact Info) Description 05/02/2022 Telephone [place] [id number] Claire Stuart Social History Tobacco Use Types [...] on filedocumented in this encounter Care Teams Creping Machine Operator Relationship Specialty Start Date End Date David Massey MD [address] [place] [address] PCP - General Emergency Medicine 03/31/21 documented as of this encounter
--- OUTSIDE RECORDS SUMMARY | 2024-08-05 21:25 | XMS_ITS | Encounter Summary ---
Author Organization [facility] Address [facility] [place] [address] Care Team Providers Care Motion Picture Director Name Role Phone David Massey MD Primary Care Provider [phone] Encounter Details Date Type Department Care Team (Late st Contact Info) Description 05/23/2022 9:40 AM EDT Anesthesia Event [place] [address] Yolis Rodriguez MD [facility] [place] [address] Anesthesia Record Procedure Summary Procedure Name Responsible [...] performed by Romario Womack Jr., MD at [facility] ??? PRO CYSTOURETHROSCOPY N/A 03/09/2022 CYSTO, CYSTOURETHROSCOPY, DIAGNOSTIC (WRVU 2.23) performed by Romario Womack Jr., MD at [facility] ??? PRO CYSTOURETHROSCOPY, URETER CATHETER Left 10/13/2021 CYSTO, RETROGRADE, URETEROPYELOGRAPHY (WRVU 2.37) performed by Romario Womack Jr., MD at [facility] ??? PRO EXCISE EXCESS SKIN TISSUE, ABDOMEN N/A 05/17/2016 ABDOMINOPLASTY performed by Adis Membreno MD at [facility] OR ??? PRO LAP GASTRIC BYPASS/KEYSHA-EN-Y 02/08/2014 @LAPAROSCOPIC GASTROPLASTY, performed by Wally Pfeiffer MD at [facility] OR ??? PRO LAP, DIAGNOSTIC ABDOMEN 02/10/2014 LAPAROSCOPY, DIAGNOSTIC, ABDOMEN performed by Wally Pfeiffer MD at [facility] OR ??? PRO REPAIR INCISIONAL HERNIA, REDUCIBLE N/A 05/17/2016 REPAIR INITIAL INCISIONAL OR VENTRAL HERNIA REDUCIBLE [facility] ??? PRO UNLISTED LAPAROSCOPIC PROCEDURE ESOPHAGUS 02/08/2014 LAPAROSCOPIC REVISION OF DELROY FUNDOPLASTY performed by Wally Pfeiffer MD at [facility] OR ??? PRO UPPER GI ENDOSCOPY, BIOPSY 12/11/2013 UPPER GASTROINTESTINAL ENDOSCOPY,WITH BIOPSY SINGLE OR MULTIPLE performed by Wally Pfeiffer MDat [facility] ??? PRO UPPER GI ENDOSCOPY, DIAGNOSTIC 12/25/2013 EGD, UPPER GI ENDOSCOPY performed by Wally Pfeiffer MD at [facility] ??? PRO UPPER GI ENDOSCOPY, DIAGNOSTIC 02/08/2014 ENDOSCOPY, UPPER GI, DIAGNOSTIC, WITH OR WITHOUT SPECIMENS performed by Wally Pfeiffer MD at [facility] OR ??? TONSILLECTOMY ??? TOTAL [...] adequate PIV access Gabriel Chatman MD 05/22/2022 Ceramic Chemist Pager #[phone] Informed Consent: Anesthesia Screening documented in this encounter Plan of Treatment Not on file documented as of this encounter Visit Diagnoses Not on filedocumented in this encounter Care Teams Motion Picture Director Relationship Specialty Start Date End Date David Massey MD [address] [place] [address] PCP - General Emergency Medicine 03/31/21 documented as of this encounter
--- OUTSIDE RECORDS SUMMARY | 2024-08-05 21:25 | XMS_ITS | Encounter Summary ---
Author Organization [facility] Address [facility] [place] [address] Care Team Providers Care Catheter Builder Name Role Phone Dominic Restrepo MD Primary Care Provider [phone] Encounter Details Date Type Department Care Team (Latest Contact Info) Description 09/29/2017 - 09/29/2017 11:59 PM EST Hospital Encounter Radiology Library at [facility] [place] [address] Adis Franco MD [facility] [place] [address] Discharge Disposition: Home Social History Tobacco Use [...] DX Shoulder (09/29/2017 12:00 AM EST) Narrative EMA - 12/25/2017 11:14 AM EDT This exam is for storage only and is auto-finalizing. Adis Franco MD IMG FILM LIBRARY ORD ERABLES Performing Organization Address City/State/[facility] Co de Phone Number [place], [place] documented in this encounter Visit Diagnoses Not on filedocumented in this encounter Care Teams Catheter Builder Relationship Specialty Start Date End Date Dominic Restrepo MD [address] [place] [address] PCP - General Family Medicine 04/22/17 03/30/21 documented as of this encounter
--- OUTSIDE RECORDS SUMMARY | 2024-08-05 21:25 | XMS_ITS | Encounter Summary ---
[place] [address] Care Team Providers Care Furniture Sprayer Name Role Phone David Massey MD Primary Care Provider [phone] Encounter Details Date Type Department Care Team (Late st Contact Info) Description 03/20/2022 Telephone [place] [phone] Claire Stuart Social History Tobacco Use Types [...] López to be on 05/02/22. Letter sent. [facility] for call back to schedule Surgery with Dr. López documented in this encounter Plan of Treatment Not on file documented as of this encounter Visit Diagnoses Not on filedocumented in this encounter Care Teams Furniture Sprayer Relationship Specialty Start Date End Date David Massey MD [address] [place] [address] PCP - General Emergency Medicine 03/31/21 documented as of this encounter
--- OUTSIDE RECORDS SUMMARY | 2024-08-05 21:26 | XMS_ITS | Encounter Summary ---
Author Organization [facility] Address [facility] [place] [address] Care Team Providers Care Electorate Officer Name Role Phone Manolo Castro MD Primary Care Provider [phone] Reason for Visit * Auth/Cert Specialty Diagnoses / Procedures Referred By Sonal dawson Referred To Contact Diagnoses Abdominal pannus Ventral hernia without obstruction or gangrene E65 - abdominal pannus K43.90 - Ventral hernia Proposed admit date of 05/17/2016 Panel 1 w/ Dr. Valencia for cpt code 93340 Panel 2 w/ Dr. Ortega for cpt code 91445 Procedures PRO EXCISE EXCESS SKIN TISSUE, ABDOMEN PRO REPAIR INCISIONAL HERNIA, REDUCIBLE PRO MUSCLE-SKIN FLAP, TRUNK ABDOMINOPLASTY Referral ID Status Reason Start Date Expiration Date Visits Re quested Visits Authorized [id number] 1 1 Encounter Details Date Type Department Care Team (Latest Contact Info) Description 05/17/2016 5:41 AM EDT - 05/20/2016 10:06 AM EDT Hospital Encounter 3 [place] [address] Karlene Valencia MD [facility] [address] Chronic anticoagulation Discharge Disposition: Home with VNA [...] MULTIPLE performed by Wally Pfeiffer MDat [facility] ENDOSCOPY ??? Pro upper gi endoscopy, diagnostic 12/25/2013 EGD, UPPER GI ENDOSCOPY performed by Wally Pfeiffer MD at [facility] ENDOSCOPY ??? Pro lap, esophagus, other proc 02/08/2014 LAPAROSCOPIC REVISION OF DELROY FUNDOPLASTY performed by Wally Pfeiffer MD at [facility] OR ??? Pro lap gastric bypass/monica-en-y 02/08/2014 @LAPAROSCOPIC GASTROPLASTY, performed by Wally Pfeiffer MD at [facility] OR ??? Pro upper gi endoscopy, diagnostic 02/08/2014 ENDOSCOPY, UPPER GI, DIAGNOSTIC, WITH OR WITHOUT SPECIMENS performed by Wally Pfeiffer MD at [facility] MAIN OR ??? Pro lap, diagnostic abdomen 02/10/2014 LAPAROSCOPY, DIAGNOSTIC, ABDOMEN performed by Wally Pfeiffer MD at [facility] MAIN OR ??? Pro excise excess skin tissue, abdomen N/A 05/17/2016 ABDOMINOPLASTY performed by Karlene Valencai MD at [facility] MAIN OR ??? Pro repair incisional hernia, reducible N/A 05/17/2016 REPAIR INITIAL INCISIONAL OR VENTRAL HERNIA REDUCIBLE performed by Stephanie Ortega MD at [facility] LOVELY ??? N/A 05/17/2016 MODIFIER PANNICULECTOMY performed by Karlene Valencia MD at [facility] MAIN OR Procedures: 05/17/2016 Surgeon(s) and [...] 11:20 AM Terri Mak APRN Plastic Surgery [phone] 06/15/2016 9:[address] [facility] DX ROOM 4 [facility] Xray [phone] to [address] Judge Area 3T ([place] Location). 06/15/2016 10:30 AM Pablo Handy PA Orthopaedics [phone] 06/19/2016 11:20 Stephanie Garces MD General Surgery [phone] Future Orders Complete By Expires Referral to Home Health - at DISCHARGE [UOG8160 CPT(R)] As directed Process Instructions: Scheduling Instructions: Comments: DOCUMENTATION FOR VNA SERVICES (INCLUDING THOSE PATIENTS WITH MEDICARE COVERAGE REQUIRING HOME VNA SERVICES AND/OR HOSPICE SERVICES) PATIENT'S LOCATION: Eugene Rueda [address] [place] [address] [address] [facility] [address] (home) Cell: Telephone Information: Server Programmer's Name: self In discussion with the attending physician, it is certified that this patient is under their care and that they, or a Nurse Practitioner,Clinical Nurse specialist or Physician Wash Driller who is working directly with them, had [...] re health issues HOME HEALTH CARE AGENCY: [facility] PHONE: [phone] FAX: [phone] Start of care: 24 hours after discharge [...] MD [address] / [place] [address] All VNA agencies which cover the area of patient's residence have been reviewed, either verbally harry writing, and patient/family have chosen the home health care agency noted Questions: Agency name and contact information: Zan FISHER Patient location post discharge: home What services are requested: Registered Nurse Start date: 05/21/2016 Responsible MD post discharge contact info: Dr Valencia and PCP Demodn standard [EQ135 Custom] As directed Process Instructions: Scheduling Instructions: Comments: Eugene Lopez [place] [address] [place] [address] (home) Telephone Information: Diagnosis: abdominal pannus with Unsteady gait Patient???s: Hgt: 5' 9 Wgt: 220lbs VENDOR: [facility] Ordering: Front wheel walker [facility] Questions: Vendor Name/Contact [...] called in to our prescription line at [phone]. Narcotic renewals may be requested from 8am-4pm [...] Saturday 8 am to 5 pm Call [phone] On weekends or after hours: Call [phone] and ask the paper cutter operator to page the Plastic Surgery Resident sales and production manager. Follow-up plan: Future Appointments and Orders Future Appointments Provider Department Dept Phone 05/29/2016 11:20 AM Terri Mak APRN Plastic Surgery [phone] 06/15/2016 9:[address] [facility] DX ROOM 4 [facility] Xray [phone] to [address] Judge Area 3T ([place] Location). 06/15/2016 10:30 AM Pablo Handy PA Orthopaedics [phone] 06/19/2016 11:20 AM Stephanie Ortega MD General Surgery [phone] Future Orders Complete By Expires Referral to Home Health - at DISCHARGE [[id number] CPT(R)] As directed Process Instructions: Scheduling Instructions: Comments: DOCUMENTATION FOR VNA SERVICES (INCLUDING THOSE PATIENTS WITH MEDICARE COVERAGE REQUIRING HOME VNA SERVICES AND/OR HOSPICE SERVICES) PATIENT'S LOCATION: Eugene Ninos[place]igel [facility] [address] (home) Cell: Telephone Information: Server Programmer's Name: self In discussion with the attending physician, it is certified that this patient is under their care and that they, or a Nurse Practitioner,Clinical Nurse specialist or Physician Wash Driller who is working directly with them, had [...] re health issues HOME HEALTH CARE AGENCY: [facility] PHONE: [phone] FAX: [phone] Start of care: 24 hours after discharge [...] from this patient's PCP: MANOLO CASTRO MD [place] [address] / [facility] [address] All [facility] agencies which cover the area of patient's residence have been reviewed, either verbally harry writing, and patient/family have chosen the home health care agency noted Questions: Agency name and contact information: [facility] Patient location post discharge: home What services are requested: Registered Nurse Start date: 05/21/2016 Responsible MD post discharge contact info: Dr Valencia and PCP Demond standard [EQ135 Custom] As directed Process Instructions: Scheduling Instructions: Comments: Eugene Rueda [address] [facility] [address] (home) Telephone Information: Diagnosis: abdominal pannus with Unsteady gait Patient???s: Hgt: 5' 9 Wgt: 220lbs VENDOR: [employer] Ordering: Front wheel walker Deliver to pt's hospital room #: 321A Questions: Vendor Name/Contact information: [facility] VNA: Discharge Procedure Orders Referral to Home Health - at DISCHARGE Order Comments: DOCUMENTATION FOR VNA SERVICES (INCLUDING THOSE PATIENTS WITH MEDICARE COVERAGE REQUIRING HOME VNA SERVICES AND/OR HOSPICE SERVICES) PATIENT'S LOCATION: Eugene Rueda [facility] [address] [facility] [address] (home) Cell: Telephone Information: Server Programmer's Name: self In discussion with the attending physician, it is certified that this patient is under their care and that they, or a Nurse Practitioner,Clinical Nurse specialist or Physician Wash Driller who is working directly with them, had [...] re health issues HOME HEALTH CARE AGENCY: [facility] PHONE: [phone] FAX: [phone] Start of care: 24 hours after discharge [...] MD [address] / [place] [address] All VNA agencies which cover the area of patient's residence have been reviewed, either verbally harry writing, and patient/family have chosen the home health care agency noted Order Specific Question Answer Comments Agency name and contact information [facility] Patient location post discharge home What [...] 11:20 AM Terri Mak APRN Plastic Surgery [phone] 06/15/2016 9:[address] [facility] DX ROOM 4 [facility] Xray [phone] to [address] Judge Area 3T ([place] Location). 06/15/2016 10:30 AM Pablo Handy PA Orthopaedics [phone] 06/19/2016 11:20 AM Stephanie Ortega MD General Surgery [phone] Future Orders Complete By Expires Referral to Home Health - at DISCHARGE [[id number] CPT(R)] As directed Process Instructions: Scheduling Instructions: Comments: DOCUMENTATION FOR VNA SERVICES (INCLUDING THOSE PATIENTS WITH MEDICARE COVERAGE REQUIRING HOME VNA SERVICES AND/OR HOSPICE SERVICES) PATIENT'S LOCATION: Eugene Ninonigel [address] [place] [address] (home) Cell: Telephone Information: Server Programmer's Name: self In discussion with the attending physician, it is certified that this patient is under their care and that they, or a Nurse Practitioner,Clinical Nurse specialist or Physician Wash Driller who is working directly with them, had [...] re health issues HOME HEALTH CARE AGENCY: [facility]. PHONE: [phone] FAX: [phone] Start of care: 24 hours after discharge [...] PCP: MANOLO CASTRO MD [address] / [facility] [address] All A agencies which cover the area of patient's residence have been reviewed, either verbally harry writing, and patient/family have chosen the home health care agency noted Questions: Agency name and contact information: [facility] Patient location post discharge: home What services are requested: Registered Nurse Start date: 05/21/2016 Responsible MD post discharge contact info: Dr Valencia and PCP Demond standard [EQ135 Custom] As directed Process Instructions: Scheduling Instructions: Comments: Eugene Rueda [address] [place] [address] (home) Telephone Information: Diagnosis: abdominal pannus with Unsteady gait Patient???s: Hgt: 5' 9 Wgt: 220lbs VENDOR: [facility] Ordering: Front wheel walker Deliver to [facility] hospital room #: 321A Questions: Vendor [...] called in to our prescription line at [phone]. Narcotic renewals may be requested from 8am-4pm [...] Saturday 8 am to 5 pm Call [phone] On weekends or after hours: Call [phone] and ask the paper cutter operator to page the Plastic Surgery Resident sales and production manager. documented in this encounter Medications at Time [...] RN - 05/20/2016 6:47 AM EDT 3 [place] Telemetry Note Diagnosis r/t telemetry: Afib Subjective: [...] DVT Px Milton Vu MD 05/18/2016 Pager: [phone] * Kenia Sarabia RN - 05/17/2016 1:15 PM EDT Patient [facility] via bed from PACU s/p abdominoplasty/paniculectomy. Patient AOx 4, HR irregular, lung sounds clear. Patient denies chest pain and SOB. Hypoactive bowel sounds, lbm 8/10, pt DTV [phone]. Denies numbness and tingling. Dressing to abdomen [...] Al MD - 05/17/2016 7:16 AM EDT [facility] Department of General Surgery Interval History and [...] MULTIPLE performed by Wally Pfeiffer MDat [facility] ENDOSCOPY ??? Pro upper gi endoscopy, diagnostic 12/25/2013 EGD, UPPER GI ENDOSCOPY performed by Wally Pfeiffer MD at [facility] ENDOSCOPY ??? Pro lap, esophagus, other proc 02/08/2014 LAPAROSCOPIC REVISION OF DELROY FUNDOPLASTY performed by Wally Pfeiffer MD at [facility] MAIN OR ??? Pro lap gastric bypass/monica-en-y 02/08/2014 @LAPAROSCOPIC GASTROPLASTY, performed by Wally Pfeiffer MD at [facility] MAIN OR ??? Pro upper gi endoscopy, diagnostic 02/08/2014 ENDOSCOPY, UPPER GI, DIAGNOSTIC, WITH OR WITHOUT SPECIMENS performed by Wally Pfeiffer MD at [facility] MAIN OR ??? Pro lap, diagnostic abdomen 02/10/2014 LAPAROSCOPY, DIAGNOSTIC, ABDOMEN performed by Wally Pfeiffer MD at [facility] MAIN OR ??? Pro excise excess skin tissue, abdomen N/A 05/17/2016 ABDOMINOPLASTY performed by Karlene Valencia MD at [facility] MAIN OR ??? Pro repair incisional hernia, reducible N/A 05/17/2016 REPAIR INITIAL INCISIONAL OR VENTRAL HERNIA REDUCIBLE performed by Stephanie Ortega MD at [facility] LOVELY ??? N/A 05/17/2016 MODIFIER PANNICULECTOMY performed by Karlene Valencia MD at [facility] MAIN OR Social History: patient , [...] timed interventions: 0 minutes (initial eval) Pager: [phone] JEAN-PAUL HILL PT 05/19/2016 Physical Therapy Rehabilitation [...] Ortega MD - 05/18/2016 1:49 PM EDT [facility] Operative Note Patient Name: Eugene Rueda : [id number] MR#: [id number] Case Date: 05/17/2016 Surgeon: Surgeon(s) and Role: [...] repair (recurrent), with mesh. SURGEON: Dr. Ortega. DINKEY ENGINEER: Shon. Mr. Rueda was seen preoperatively by both az and the Plastic Surgery service. He is [...] using a #1 PDS suture in a iqhnz-[id number]-ytoc-type manner. Interrupted full-thickness sutures were brought through [...] Coverage: yes Primary Insurance: MEDICARE Secondary Insurance: [employer] OOS Prescription Coverage: Insurance as noted [facility]erred [facility]acy: [phone] Other: n/a Primary Care Provider: MANOLO CASTRO MD [phone] Patient/Caregiver Goals of Treatment: Return home with [...] transition of care planning. CONRAD Warner Pager: [phone] * Plan of Care - Ana Whitlock [...] Valencia MD - 05/17/2016 10:15 AM EDT [facility] Operative Note Patient Name: Eugene Rueda : [id number] MR#: [id number] Case Date: 05/17/2016 Surgeon: Surgeon(s) and Role: [...] then irrigated the abdomen copiously. Two #19 [place]ut Rao drains were inserted, 1 on each [...] Operative Note Patient Name: Eugene Rueda : [id number] MR#: [id number] Case Date: 05/17/2016 Surgeon: Surgeon(s) and Role: [...] Procedure Name Priority Date/Time Associated Diagnosis Comments SUBSTANCE ABUSE PREVENTION COORDINATOR SCAN 05/21/2016 12:00 AM EDT POCT GLUCOSE [...] in this encounter Results * SCAN DOC: SUBSTANCE ABUSE PREVENTION COORDINATOR (05/21/2016 12:00 AM EDT) Anatomical Region Laterality Modality Other Scanning Provider MEDIA MGR SCAN EXT O RDR/RSLT * POCT Glucose (05/20/2016 8:21 AM EDT) Glucose, POC 134 65 - 199 mg/dL [facility] Comment: Supplemental ranges: <140 mg/dL before meals <180 mg/dL all other times of the day Blood specimen (specimen) 05/20/2016 8:21 AM EDT 05/20/2016 8:21 AM EDT Karlene Valencia MD POINT OF CARE TEST O SADIA Performing Organization Address [facility] Co de Phone Number [facility] [place] [address] * POCT Glucose (05/19/2016 8:57 PM EDT) Glucose, POC 131 65 - 199 mg/dL [facility] Comment: Supplemental ranges: <140 mg/dL before meals <180 mg/dL all other times of the day Blood specimen (specimen) 05/19/2016 8:57 PM EDT 05/19/2016 8:57 PM EDT Karlene Valencia MD POINT OF CARE TEST O SADIA [facility] [place] [address] * POCT Glucose (05/19/2016 5:02 PM EDT) Glucose, POC 120 65 - 199 mg/dL [facility] Comment: Supplemental ranges: <140 mg/dL before meals <180 mg/dL all other times of the day Blood specimen (specimen) 05/19/2016 5:02 PM EDT 05/19/2016 5:02 PM EDT Karlene Valencia MD POINT OF CARE TEST O RDERABLES [facility] [place] [address] * POCT Glucose (05/19/2016 11:41 AM EDT) Glucose, POC 140 65 - 199 mg/dL [facility] Comment: Supplemental ranges: <140 mg/dL before meals <180 mg/dL all other times of the day Blood specimen (specimen) 05/19/2016 11:41 AM EDT 05/19/2016 11:41 AM EDT Karlene Valencia MD POINT OF CARE TEST O DYLANERAALYSHA [facility] [place] [address] * POCT Glucose (05/19/2016 7:37 AM EDT) Glucose, POC 134 65 - 199 mg/dL [facility] Comment: Supplemental ranges: <140 mg/dL before meals <180 mg/dL all other times of the day Blood specimen (specimen) 05/19/2016 7:37 AM EDT 05/19/2016 7:37 AM EDT Karlene Valencia MD POINT OF CARE TEST O RDERAALYSHA [facility] [place] [address] * POCT Glucose (05/18/2016 8:48 PM EDT) Glucose, POC 173 65 - 199 mg/dL [facility] Comment: Supplemental ranges: <140 mg/dL before meals <180 mg/dL all other times of the day Blood specimen (specimen) 05/18/2016 8:48 PM EDT 05/18/2016 8:48 PM EDT Karlene Valencia MD POINT OF CARE TEST O RDERAALYSHA [facility] [place] [address] * POCT Glucose (05/18/2016 4:45 PM EDT) Glucose, POC 125 65 - 199 mg/dL [facility] Comment: Supplemental ranges: <140 mg/dL before meals <180 mg/dL all other times of the day Blood specimen (specimen) 05/18/2016 4:45 PM EDT 05/18/2016 4:45 PM EDT Karlene Valencia MD POINT OF CARE TEST O SADIA [facility] [place] [address] * POCT Glucose (05/18/2016 12:14 PM EDT) Glucose, POC 137 65 - 199 mg/dL [facility] Comment: Supplemental ranges: <140 mg/dL before meals <180 mg/dL all other times of the day Blood specimen (specimen) 05/18/2016 12:14 PM EDT 05/18/2016 12:14 PM EDT Karlene Valencia MD POINT OF CARE TEST O RDERAALYSHA [facility] [place] [address] * POCT Glucose (05/18/2016 8:09 AM EDT) Glucose, POC 178 65 - 199 mg/dL [facility] Comment: Supplemental ranges: <140 mg/dL before meals <180 mg/dL all other times of the day Blood specimen (specimen) 05/18/2016 8:09 AM EDT 05/18/2016 8:09 AM EDT Karlene Valencia MD POINT OF CARE TEST O RDERAALYSHA [facility] [place] [address] * POCT Glucose (05/17/2016 9:32 PM EDT) Glucose, POC 172 65 - 199 mg/dL [facility] Comment: Supplemental ranges: <140 mg/dL before meals <180 mg/dL all other times of the day Blood specimen (specimen) 05/17/2016 9:32 PM EDT 05/17/2016 9:32 PM EDT Karlene Valencia MD POINT OF CARE TEST O SADIA Performing Organization Address City/[facility]/ZIP Co de Phone Number [facility] [place] [address] * POCT Glucose (05/17/2016 4:14 PM EDT) Glucose, POC 186 65 - 199 mg/dL [facility] Comment: Supplemental ranges: <140 mg/dL before meals <180 mg/dL all other times of the day Blood specimen (specimen) 05/17/2016 4:14 PM EDT 05/17/2016 4:14 PM EDT Karlene Valencia MD POINT OF CARE TEST O RDERAALYSHA [facility] [place] [address] * POCT Glucose (05/17/2016 10:41 AM EDT) Glucose, POC 185 65 - 199 mg/dL [facility] Comment: Supplemental ranges: <140 mg/dL before meals <180 mg/dL all other times of the day Blood specimen (specimen) 05/17/2016 10:41 AM EDT 05/17/2016 10:41 AM EDT Karlene Valencia MD POINT OF CARE TEST Pat MCCULLOUGH Performing Organization Address [facility] Co de Phone Number [facility] [place] [address] * POCT Glucose (05/17/2016 6:40 AM EDT) Glucose, POC 131 65 - 199 mg/dL [facility] Comment: Supplemental ranges: <140 mg/dL before meals <180 mg/dL all other times of the day Blood specimen (specimen) 05/17/2016 6:40 AM EDT 05/17/2016 6:40 AM EDT Karlene Valencia MD POINT OF CARE TEST Pat MCCULLOUGH Performing Organization Address [facility] de Phone Number [facility] [place] [address] * Prothrombin Time (05/17/2016 5:56 AM EDT) Prothrombin Time 14.6 12.0 - 15.0 sec [facility] Comment: An INR <2.0 [...] International Normalization Ratio 1.1 0.9 - 1.1 [facility] Blood specimen (specimen) 05/17/2016 5:56 AM EDT 05/17/2016 6:33 AM EDT Narrative Resulting Agency Comment Spec In Lab Karlene Valencia MD HEMATOLOGY ORDERABLE S [facility] [place] [address] documented in this encounter Visit Diagnoses Diagnosis [...] Shea Dixon RN) [phone] (Given - Provider: Tatianan Pickens RN) PRN Medication Order 05/18/2016 05/19/2016 [...] Unit) documented in this encounter Care Teams Electorate Officer Relationship Specialty Start Date End Date Manolo Castro MD [address] [place] [address] PCP - General 05/14/12 04/21/17 documented as of this encounter
--- OUTSIDE RECORDS SUMMARY | 2024-08-05 21:26 | XMS_ITS | Encounter Summary ---
Author Organization [facility] Address [facility] [place] [address] Care Team Providers Care Roving Tester Laboratory Name Role Phone Manolo Castro MD Primary Care Provider Encounter Details Date Type Department Care Team (Latest Contact Info) Description 05/07/2014 11:54 AM EDT - 05/07/2014 11:59 PM EDT Hospital Encounter XRay at [address] [place] [address] S/P knee replacement, bilateral Social History Tobacco [...] bilateral documented in this encounter Care Teams Roving Tester Laboratory Relationship Specialty Start Date End Date Manolo Castro MD [address] [place] [address] PCP - General 05/14/12 04/21/17 documented as of this encounter
--- OUTSIDE RECORDS SUMMARY | 2024-08-05 21:26 | XMS_ITS | Encounter Summary ---
Author Organization [facility] [place] [address] Care Team Providers Care Flamer After Lasting Name Role Phone Manolo Castro MD Primary Care Provider [phone] Reason for Visit * Reason Onset Date Comments Other 11/11/2015 Encounter Details Date Type Department Care Team ([facility] Contact Info) Description 11/11/2015 Telephone [place] [address] Narda Allen, DRAFTING INSTRUCTOR [facility] [place] [place] [address] Other Social History Tobacco Use Types Packs/Day [...] on filedocumented in this encounter Care Teams Flamer After Lasting Relationship Specialty Start Date End Date Manolo Castro MD [address] [place] [address] PCP - General 05/14/12 04/21/17 documented as of this encounter
--- OUTSIDE RECORDS SUMMARY | 2024-08-05 21:26 | XMS_ITS | Encounter Summary ---
[place] [address] Care Team Providers Care Drafter Detail Name Role Phone Manolo Castro MD Primary Care Provider [phone] Encounter Details Date Type Department Care Team (Late st Contact Info) Description 04/05/2014 Orders [place] [address] FriendDenice LPN Social History Tobacco Use Types [...] on filedocumented in this encounter Care Teams Drafter Detail Relationship Specialty Start Date End Date Manolo Castro MD [address] [place] [address] PCP - General 05/14/12 04/21/17 documented as of this encounter
--- OUTSIDE RECORDS SUMMARY | 2024-08-05 21:26 | XMS_ITS | Encounter Summary ---
Author Organization [facility] Address [facility] [place] [address] Care Team Providers Care Adhesive Bonding Machine Operator Name Role Phone Manolo Castro MD Primary Care Provider [phone] Reason for Visit * Reason Comments Follow Up Surgery sp bilat tka dos 12/05 11/09 Encounter Details Date Type Department Care Team (Late st Contact Info) Description 05/07/2014 12:40 PM EDT Office [place] [address] Rebecca Hamilton PA [facility] [place] [address] S/P knee replacement, bilateral; Knee joint replacement [...] Patient Name: Eugene Rueda : 1950 MR#: [id number] Case Date: 12/16/2002 Surgeon: Dr. Turner/ Dr. [...] means documented in this encounter Care Teams Adhesive Bonding Machine Operator Relationship Specialty Start Date End Date Manolo Castro MD [address] [place] [address] PCP - General 05/14/12 04/21/17 documented as of this encounter
--- OUTSIDE RECORDS SUMMARY | 2024-08-05 21:26 | XMS_ITS | Encounter Summary ---
Author Organization [facility] Address [facility] [place] [address] Care Team Providers Care Acid Painter Name Role Phone Manolo Castro MD Primary Care Provider [phone] Reason for Visit * Reason Onset Date Comments Reminder Appointment 03/27/2016 Encounter Details Date Type Department Care Team (Late Contact Info) Description 03/27/2016 [place] [id number] Pablo Handy PA [facility] [place] [address] Reminder Appointment Social History Tobacco Use Types [...] on filedocumented in this encounter Care Teams Acid Painter Relationship Specialty Start Date End Date Manolo Castro MD [address] [place] [address] PCP - General 05/14/12 04/21/17 documented as of this encounter
--- OUTSIDE RECORDS SUMMARY | 2024-08-05 21:26 | XMS_ITS | Encounter Summary ---
Author Organization [facility] Address [facility] [place] [address] Care Team Providers Care Inspector Coated Fabrics Name Role Phone Manolo Castro MD Primary Care Provider [phone] Reason for Referral * Consultation (Routine) - Closed Specialty Diagnoses / Procedures Referred By Sonal dawson Referred To Contact General Surgery Diagnoses Abdominal pannus Karlene Membreno MD [facility] [place] [address] Stephanie Butcher MD [facility] [place] [address] Referral ID Status Reason Start Date Expiration Date V isits Requested Visits Authorized [id number] Closed Consult, Test & Treat 02/07/2016 02/06/2017 1 1 Reason for Visit * Reason Comments Advice Only post gastric bypass 2013 * Consultation (Routine) - Specialty Diagnoses / Procedures Referred By Sonal dawson Referred To Contact Plastic Surgery Diagnoses Status post bariatric surgery Intestinal malabsorption, unspecified type Symptomatic abdominal panniculus Narda Allen, THREAD WINDER [facility] [place] [address] Karlene Membreno MD [facility] [place] [address] Referral ID Status Reason Start Date Expiration Date V isits Requested Visits Authorized [id number] Consult, Test & Treat 12/08/2015 12/07/2016 1 1 Encounter Details Date Type Department Care Team (Late st Contact Info) Description 02/07/2016 9:30 AM EDT Office Visit Plastic Surgery at [facility] [place] [address] Karlene Membreno MD [facility] [place] [address] Abdominal pannus Social History Tobacco Use Types [...] this encounter Patient Instructions * Patient Instructions* Een Toribio RMA - 02/07/2016 10:11 AM EDT You were given written and verbal preoperative instructions today. To prepare for your upcoming surgery, please review the Pre-Operative Instruction brochure that wasgiven to you. Remember to do the pre op wash, with Hibiclens soap, as instructed. You will need a regional dedicated truck driver. Expect a call from the nurses from the Same Day Dept. the business day before the surgery to instruct you in the time to arrive as well as when to stop eating and drinking. Feel free to call our office @ [phone] if you have any questions or concerns. [...] aspirin products (unless otherwise advised by patient's PCP/Optical Instrument Inspector for cardiac symptoms), fish oil, Vitamin E [...] MULTIPLE performed by Wally Pfeiffer MDat [facility] ENDOSCOPY ??? Pro upper gi endoscopy, diagnostic 12/25/2013 EGD, UPPER GI ENDOSCOPY performed by Wally Pfeiffer MD at [facility] ENDOSCOPY ??? Pro lap, esophagus, other proc 02/08/2014 LAPAROSCOPIC REVISION OF DELROY FUNDOPLASTY performed by Wally Pfeiffer MD at [facility] MAIN OR ??? Pro lap gastric bypass/monica-en-y 02/08/2014 @LAPAROSCOPIC GASTROPLASTY, performed by Wally Pfeiffer MD at [facility] MAIN OR ??? Pro upper gi endoscopy, diagnostic 02/08/2014 ENDOSCOPY, UPPER GI, DIAGNOSTIC, WITH OR WITHOUT SPECIMENS performed by Wally Pfeiffer MD at [facility] MAIN OR ??? Pro lap, diagnostic abdomen 02/10/2014 LAPAROSCOPY, DIAGNOSTIC, ABDOMEN performed by Wally Pfeiffer MD at [facility] MAIN OR History Social History ??? [...] Procedure: Panniculectomy with possible component separation CPT: 39012, 27576-83 Surgical site: Abdomen Side: N/a Anesthesia: General [...] adiposity documented in this encounter Care Teams Inspector Coated Fabrics Relationship Specialty Start Date End Date Manolo Castro MD [address] [place] [address] PCP - General 05/14/12 04/21/17 documented as of this encounter
--- OUTSIDE RECORDS SUMMARY | 2024-08-05 21:26 | XMS_ITS | Encounter Summary ---
Author Organization [facility] Address [facility] [place] [address] Care Team Providers Care Bottom Steep Tender Name Role Phone Manolo Castro MD Primary Care Provider [phone] Encounter Details Date Type Department Care Team (Late st Contact Info) Description 04/26/2014 Orders [place] [address] Rebecca Hamilton PA [facility] [place] [address] S/P knee replacement, bilateral (Primary Dx) Social [...] Primary documented in this encounter Care Teams Bottom Steep Tender Relationship Specialty Start Date End Date Manolo Castro MD [address] [place], [place] [id number] PCP - General 05/14/12 04/21/17 documented as of this encounter
--- OUTSIDE RECORDS SUMMARY | 2024-08-05 21:26 | XMS_ITS | Encounter Summary ---
Author Organization [facility] Address [facility] [place] [address] Care Team Providers Care Marking Devices Assembler Name Role Phone Manolo Castro MD Primary Care Provider [phone] Reason for Visit * Reason Comments Establish Care * Consultation (Routine) - Closed Specialty Diagnoses / Procedures Referred By Sonal dawson Referred To Contact General Surgery Diagnoses Abdominal panmonicaus Adis Membreno MD [facility] [place] [address] Stephanie Butcher MD [facility] [place] [address] Referral ID Status Reason Start Date Expiration Date V isits Requested Visits Authorized [id number] Closed Consult, Test & Treat 02/07/2016 02/06/2017 1 1 Encounter Details Date Type Department Care Team (Late st Contact Info) Description 03/22/2016 8:00 AM EDT Office [place] [address] Stephanie Butcher MD [facility] [place] [address] Ventral hernia without obstruction or [...] visit was 20 minutes, all spent in side-oc-znbw discussion with the patient. documented in this encounter Plan of Treatment Scheduled Referrals Name Type Priority Associated Diagnoses Orde r Schedule Referral to General Surgery Outpatient Referral Routine Abdominal pannus Ordered: 02/07/2016 documented as of this encounter Visit Diagnoses Diagnosis Ventral hernia without obstruction or gangrene Ventral hernia, unspecified, without mention of obstruction or gangrene documented in this encounter Care Teams Marking Devices Assembler Relationship Specialty Start Date End Date Manolo Castro MD [address] [place] [address] PCP - General 05/14/12 04/21/17 documented as of this encounter
--- OUTSIDE RECORDS SUMMARY | 2024-08-05 21:26 | XMS_ITS | Encounter Summary ---
Author Organization Replaced By [facility] Address [facility] [place] [address] Care Team Providers Care Color Card Maker Name Role Phone Manolo Castro MD Primary Care Provider [phone] Reason for Visit * Reason Onset Date Comments Bumped Appointment 05/10/2016 Encounter Details Date Type Department Care Team (Late st Contact Info) Description 05/10/2016 [place] [address] Pablo Handy PA [facility] [place] [address] Bumped Appointment Social History Tobacco Use Types [...] on filedocumented in this encounter Care Teams Color Card Maker Relationship Specialty Start Date End Date Manolo Castro MD [address] [place] [address] PCP - General 05/14/12 04/21/17 documented as of this encounter
--- OUTSIDE RECORDS SUMMARY | 2024-08-05 21:26 | XMS_ITS | Encounter Summary ---
Author Organization [facility] Address [facility] [place] [address] Care Team Providers Care Meeting Manager Name Role Phone Manolo Castro MD Primary Care Provider [phone] Reason for Visit * Auth/Cert Specialty Diagnoses / Procedures Referred By Sonal dawson Referred To Contact Diagnoses Abdominal pannus Ventral hernia without obstruction or gangrene E65 - abdominal pannus K43.90 - Ventral hernia Proposed admit date of 05/17/2016 Panel 1 w/ Dr. Membreno for cpt code 08796 Panel 2 w/ Dr. Butcher for cpt code 37712 Procedures PRO EXCISE EXCESS SKIN TISSUE, ABDOMEN PRO REPAIR INCISIONAL HERNIA, REDUCIBLE PRO MUSCLE-SKIN FLAP, TRUNK ABDOMINOPLASTY Referral ID Status Reason Start Date Expiration Date Visits Re quested Visits Authorized [id number] 1 1 Encounter Details Date Type Department Care Team (Late st Contact Info) Description 05/17/2016 7:27 AM EDT Anesthesia Event [place] [address] Krunla Carter MD [facility] [place] [address] Leatha Trevino, CYLINDER HANDLER [address] [facility] [address] [place] [address] Anesthesia Record Procedure Summary Procedure Name Responsible [...] 0723; metacarpal vein right (top of hand); prqd-jer-[id number] catheter system; 20 gauge; Campos Blair RN; [...] Carter MD - 05/17/2016 11:05 AM EDT [facility] Department of Anesthesiology Post-procedure Note Patient: Eugene Rueda Procedure Summary Date Anesthesia Start Anesthesia Stop Room / Location 05/17/16 0727 1040 [facility] OR [facility] MAIN OR Procedure Diagnosis Surgeon Responsible Provider ABDOMINOPLASTY (N/A Abdomen); MODIFIER PANNICULECTOMY (N/A Abdomen); REPAIR INITIAL INCISIONAL OR VENTRAL HERNIA REDUCIBLE (N/A Abdomen); MODIFIER MESH,BARD VENTRIO (abdominal pannus) Adis Membreno MD; TrusStephanie MD Pouliot, Ryan C, MD All Anesthesia Providers: Anesthesiologist: Krunal Carter MD DIRECTOR OF SERVICES: Polo Fraga CRNA Last (1hr) Vitals: BP 135/84 (05/17/16 1048) Temp 36.4 ??C (97.5 ??F) (05/17/16 1034) Pulse 109 (05/17/16 1048) Resp 14 (05/17/16 1048) SpO2 96 % (05/17/16 1048) Patient Location: PACU[facility] Level of Consciousness: Awake and Alert [...] OR MULTIPLE performed by Wally Pfeiffer MDat [facility] ENDOSCOPY ??? Pro upper gi endoscopy, diagnostic 12/25/2013 EGD, UPPER GI ENDOSCOPY performed by Wally Pfeiffer MD at [facility] ENDOSCOPY ??? Pro lap, esophagus, other proc 02/08/2014 LAPAROSCOPIC REVISION OF DELROY FUNDOPLASTY performed by Wally Pfeiffer MD at [facility] MAIN OR ??? Pro lap gastric bypass/monica-en-y 02/08/2014 @LAPAROSCOPIC GASTROPLASTY, performed by Wally Pfeiffer MD at [facility] MAIN OR ??? Pro upper gi endoscopy, diagnostic 02/08/2014 ENDOSCOPY, UPPER GI, DIAGNOSTIC, WITH OR WITHOUT SPECIMENS performed by Wally Pefiffer MD at [facility] MAIN OR ??? Pro lap, diagnostic abdomen 02/10/2014 LAPAROSCOPY, DIAGNOSTIC, ABDOMEN performed by Wally Pfeiffer MD at [facility] MAIN OR Social History Substance Use Topics [...] risks discussed with patient. Plan discussed with DIRECTOR OF SERVICES. PAT Staff Note documented in this encounter [...] mg documented in this encounter Care Teams Meeting Manager Relationship Specialty Start Date End Date Manolo Castro MD [address] [place] [address] PCP - General 05/14/12 04/21/17 documented as of this encounter
--- OUTSIDE RECORDS SUMMARY | 2024-08-05 21:26 | XMS_ITS | Encounter Summary ---
[place] [address] Care Team Providers Care Distribution Systems Serviceperson Name Role Phone Manolo Castro MD Primary Care Provider [phone] Encounter Details Date Type Department Care Team (Late st Contact Info) Description 02/17/2014 Telephone [place] [address] [address], [place] [address] Social History Tobacco Use Types Packs/Day Years [...] Has 1-2 protein shakes per day, also divehi yogurt, sugar free pudding. Other: Nausea/ vomiting: [...] on filedocumented in this encounter Care Teams Distribution Systems Serviceperson Relationship Specialty Start Date End Date Manolo Castro MD [address] [place] [address] PCP - General 05/14/12 04/21/17 documented as of this encounter
--- OUTSIDE RECORDS SUMMARY | 2024-08-05 21:26 | XMS_ITS | Encounter Summary ---
Author Organization [facility] Address [facility] [place] [address] Care Team Providers Care Dock Superintendent Name Role Phone Manolo Castro MD Primary Care Provider [phone] Reason for Visit * Reason Onset Date Comments Reminder Appointment 04/01/2014 Encounter Details Date Type Department Care Team (Late st Contact Info) Description 04/01/2014 [place] [address] Rebecca Hamilton PA [facility] [place] [address] Reminder Appointment Social History Tobacco Use Types [...] on filedocumented in this encounter Care Teams Dock Superintendent Relationship Specialty Start Date End Date Manolo Castro MD [address] [place] [address] PCP - General 05/14/12 04/21/17 documented as of this encounter
--- OUTSIDE RECORDS SUMMARY | 2024-08-05 21:26 | XMS_ITS | Encounter Summary ---
Author Organization [facility] [place] [address] Care Team Providers Care Discharge Rn Name Role Phone Manolo Castro MD Primary Care Provider Reason for Visit * Reason Onset Date Comments Follow-up 07/16/2014 Encounter Details Date Type Department Care Team (Late Contact Info) Description 07/16/2014 Telephone [place] [address] Narda Allen, WATCH [facility] [place] [address] Follow-up Social History Tobacco Use Types Packs/Day [...] on filedocumented in this encounter Care Teams Discharge Rn Relationship Specialty Start Date End Date Manolo Castro MD [address] [place] [address] PCP - General 05/14/12 04/21/17 documented as of this encounter
--- OUTSIDE RECORDS SUMMARY | 2024-08-05 21:26 | XMS_ITS | Encounter Summary ---
Author Organization [facility] [place] [address] Care Team Providers Care General Matcher Name Role Phone Manolo Castro MD Primary Care Provider [phone] Reason for Visit * Auth/Cert Specialty Diagnoses / Procedures Referred By Sonal dawson Referred To Contact Diagnoses Abdominal pannus Ventral hernia without obstruction or gangrene E65 - abdominal pannus K43.90 - Ventral hernia Proposed admit date of 05/17/2016 Panel 1 w/ Dr. Valencia for cpt code 33229 Panel 2 w/ Dr. Ortega for cpt code 45104 Procedures PRO EXCISE EXCESS SKIN TISSUE, ABDOMEN PRO REPAIR INCISIONAL HERNIA, REDUCIBLE PRO MUSCLE-SKIN FLAP, TRUNK ABDOMINOPLASTY Referral ID Status Reason Start Date Expiration Date Visits Re quested Visits Authorized [id number] 1 1 Encounter Details Date Type Department Care Team (Late st Contact Info) Description 05/17/2016 7:30 AM EDT - 05/17/2016 11:28 AM EDT Surgery [place] [address] Karlene Valencia MD [facility] [address] PANNICULECTOMY (WRVU 17.11) Social History Tobacco Use [...] OR MULTIPLE performed by Wally Pfeiffer MDat [facility] ENDOSCOPY ??? Pro upper gi endoscopy, diagnostic 12/25/2013 EGD, UPPER GI ENDOSCOPY performed by Wally Pfeiffer MD at [facility] ENDOSCOPY ??? Pro lap, esophagus, other proc 02/08/2014 LAPAROSCOPIC REVISION OF DELROY FUNDOPLASTY performed by Wally Pfeiffer MD at [facility] MAIN OR ??? Pro lap gastric bypass/monica-en-y 02/08/2014 @LAPAROSCOPIC GASTROPLASTY, performed by Wally Pfeiffer MD at [facility] MAIN OR ??? Pro upper gi endoscopy, diagnostic 02/08/2014 ENDOSCOPY, UPPER GI, DIAGNOSTIC, WITH OR WITHOUT SPECIMENS performed by Wally Pfeiffer MD at [facility] MAIN OR ??? Pro lap, diagnostic abdomen 02/10/2014 LAPAROSCOPY, DIAGNOSTIC, ABDOMEN performed by Wally Pfeiffer MD at [facility] MAIN OR ??? Pro excise excess skin tissue, abdomen N/A 05/17/2016 ABDOMINOPLASTY performed by Karlene Valencia MD at [facility] MAIN OR ??? Pro repair incisional hernia, reducible N/A 05/17/2016 REPAIR INITIAL INCISIONAL OR VENTRAL HERNIA REDUCIBLE performed by Stephanie Ortega MD at [facility] LOVELY ??? N/A 05/17/2016 MODIFIER PANNICULECTOMY performed by Karlene Valencia MD at [facility] MAIN OR Procedures: 05/17/2016 Surgeon(s) [...] 11:20 AM Terri Mak APRN Plastic Surgery [phone] 06/15/2016 9:30 AM [facility] DX ROOM 4 [facility] Xray [phone] Please go to Environmental Advisor Area 3T ([place] Location). 06/15/2016 10:30 AM Pablo Handy PA Orthopaedics [phone] 06/19/2016 11:20 AM Stephanie Ortega MD General Surgery [phone] Future Orders Complete By Expires Referral to Home Health - at DISCHARGE [[id number] CPT(R)] As directed Process Instructions: Scheduling Instructions: Comments: DOCUMENTATION FOR VNA SERVICES (INCLUDING THOSE PATIENTS WITH MEDICARE COVERAGE REQUIRING HOME VNA SERVICES AND/OR HOSPICE SERVICES) PATIENT'S LOCATION: Eugene Rueda [address] [place] [address] [address] [facility] [address] (home) Cell: Telephone Information: Strategy Execution Consultant's Name: self In discussion with the attending physician, it is certified that this patient is under their care and that they, or a Nurse Practitioner,Clinical Nurse specialist or Physician Spread Cutter who is working directly with them, had [...] re health issues HOME HEALTH CARE AGENCY: [facility]. PHONE: [phone] FAX: [phone] Start of care: 24 hours after discharge [...] MD [address] / [place] [address] All VNA agencies which cover the area [...] [employer] [address] [place] [address] (home) Telephone Information: Diagnosis: abdominal pannus with Unsteady gait Patient???s: Hgt: 5' 9 Wgt: 220lbs VENDOR: [employer] Ordering: Front wheel walker Deliver to [facility] hospital room #: 321A Questions: Vendor Name/Contact [...] called in to our prescription line at [phone]. Narcotic renewals may be requested from 8am-4pm [...] Saturday 8 am to 5 pm Call [phone] On weekends or after hours: Call [phone] and ask the flat lock operator to page the Plastic Surgery Resident financial institution vice president. Follow-up plan: Future Appointments and Orders Future Appointments Provider Department Dept Phone 05/29/2016 11:20 AM Terri Mak APRN Plastic Surgery [phone] 06/15/2016 9:30 AM [facility] DX ROOM 4 [facility] Xray [phone] Please go to Environmental Advisor Area 3T ([place] Location). 06/15/2016 10:30 AM Pablo Handy PA Orthopaedics [phone] 06/19/2016 11:20 AM Stephanie Ortega MD General Surgery [phone] Future Orders Complete By Expires Referral to Home Health - at DISCHARGE [[id number] CPT(R)] As directed Process Instructions: Scheduling Instructions: Comments: DOCUMENTATION FOR VNA SERVICES (INCLUDING THOSE PATIENTS WITH MEDICARE COVERAGE REQUIRING HOME VNA SERVICES AND/OR HOSPICE SERVICES) PATIENT'S LOCATION: Eugene Lopez Marybeth [facility] [address] [address] (home) Cell: Telephone Information: Strategy Execution Consultant's Name: self In discussion with the attending physician, it is certified that this patient is under their care and that they, or a Nurse Practitioner,Clinical Nurse specialist or Physician Spread Cutter who is working directly with them, had [...] re health issues HOME HEALTH CARE AGENCY: [facility] PHONE: [phone] FAX: [phone] Start of care: 24 hours after discharge [...] from this patient's PCP: MANOLO CASTRO MD [facility] [address] / [facility] [address] All [facility] agencies which cover the area of patient's residence have been reviewed, either verbally harry writing, and patient/family have chosen the home health care agency noted Questions: Agency name and contact information: [facility] Patient location post discharge: home What services are requested: Registered Nurse Start date: 05/21/2016 Responsible MD post discharge contact info: Dr Valencia and PCP Demond standard [EQ135 Custom] As directed Process Instructions: Scheduling Instructions: Comments: Eugene Rueda [address] [facility] [address] (home) Telephone Information: Diagnosis: abdominal pannus with Unsteady gait Patient???s: Hgt: 5' 9 Wgt: 220lbs VENDOR: [employer] Ordering: Front wheel walker Deliver to pt's hospital room #: 321A Questions: Vendor Name/Contact information: [facility] VNA: Discharge Procedure Orders Referral to Home Health - at DISCHARGE Order Comments: DOCUMENTATION FOR VNA SERVICES (INCLUDING THOSE PATIENTS WITH MEDICARE COVERAGE REQUIRING HOME VNA SERVICES AND/OR HOSPICE SERVICES) PATIENT'S LOCATION: Eugene Rueda [address] [place] [address] [address] [facility] [address] (home) Cell: Telephone Information: Strategy Execution Consultant's Name: self In discussion with the attending physician, it is certified that this patient is under their care and that they, or a Nurse Practitioner,Clinical Nurse specialist or Physician Spread Cutter who is working directly with them, had [...] re health issues HOME HEALTH CARE AGENCY: [facility] PHONE: [phone] FAX: [phone] Start of care: 24 hours after discharge [...] MD [address] / [place] [address] All VNA agencies which cover the area of patient's residence have been reviewed, either verbally harry writing, and patient/family have chosen the home health care agency noted Order Specific Question Answer Comments Agency name and contact information [facility] Patient location post discharge home What [...] 11:20 AM Terri Mak APRN Plastic Surgery [phone] 06/15/2016 9:30 AM [facility] DX ROOM 4 [facility] Xray [phone] Please go to Environmental Advisor Area 3T ([place] Location). 06/15/2016 10:30 AM Pablo Handy PA Orthopaedics [phone] 06/19/2016 11:20 AM Stephanie Ortega MD General Surgery [phone] Future Orders Complete By Expires Referral to Home Health - at DISCHARGE [[id number] CPT(R)] As directed Process Instructions: Scheduling Instructions: Comments: DOCUMENTATION FOR VNA SERVICES (INCLUDING THOSE PATIENTS WITH MEDICARE COVERAGE REQUIRING HOME VNA SERVICES AND/OR HOSPICE SERVICES) PATIENT'S LOCATION: Eugene Ninonigel [address] [place] [address] [address] (home) Cell: Telephone Information: Strategy Execution Consultant's Name: self In discussion with the attending physician, it is certified that this patient is under their care and that they, or a Nurse Practitioner,Clinical Nurse specialist or Physician Spread Cutter who is working directly with them, had [...] re health issues HOME HEALTH CARE AGENCY: [facility] PHONE: [phone] FAX: [phone] Start of care: 24 hours after discharge [...] PCP: MANOLO CASTRO MD [address] / [facility] [address] All A agencies which cover the area of patient's residence have been reviewed, either verbally harry writing, and patient/family have chosen the home health care agency noted Questions: Agency name and contact information: [facility] Patient location post discharge: home What services are requested: Registered Nurse Start date: 05/21/2016 Responsible MD post discharge contact info: Dr Valencia and PCP Demond standard [EQ135 Custom] As directed Process Instructions: Scheduling Instructions: Comments: Eugene Rueda [address] [place] [address] (home) Telephone Information: Diagnosis: abdominal pannus with Unsteady gait Patient???s: Hgt: 5' 9 Wgt: 220lbs VENDOR: [facility] Ordering: Front wheel walker Deliver to [facility] hospital room #: 321A Questions: Vendor [...] called in to our prescription line at [phone]. Narcotic renewals may be requested from 8am-4pm [...] Saturday 8 am to 5 pm Call [phone] On weekends or after hours: Call [phone] and ask the flat lock operator to page the Plastic Surgery Resident financial institution vice president. documented in this encounter Medications at Time [...] RN - 05/20/2016 6:47 AM EDT 3 [facility] Telemetry Note Diagnosis r/t telemetry: Afib Subjective: [...] DVT Px Milton Vu MD 05/18/2016 Pager: [phone] * Kenia Sarabia RN - 05/17/2016 1:15 PM EDT [facility] from PACU s/p abdominoplasty/paniculectomy. Patient AOx 4, HR irregular, lung sounds clear. Patient denies chest pain and SOB. Hypoactive bowel sounds, lbm 8/10, pt DTV [id number]. Denies numbness and tingling. Dressing to abdomen [...] MD - 05/17/2016 7:16 AM EDT [facility] Department of General Surgery Interval [...] Patient Handling 05/19/16 0800 05/19/16 1706 05/19/16 2102 Safety Interventions Safety Precautions/Fall Reduction -- -- [...] OR MULTIPLE performed by Wally Pfeiffer MDat [facility] ENDOSCOPY ??? Pro upper gi endoscopy, diagnostic 12/25/2013 EGD, UPPER GI ENDOSCOPY performed by Wally Pfeiffer MD at [facility] ENDOSCOPY ??? Pro lap, esophagus, other proc 02/08/2014 LAPAROSCOPIC REVISION OF DELROY FUNDOPLASTY performed by Wally Pfeiffer MD at [facility] MAIN OR ??? Pro lap gastric bypass/monica-en-y 02/08/2014 @LAPAROSCOPIC GASTROPLASTY, performed by Wally Pfeiffer MD at [facility] MAIN OR ??? Pro upper gi endoscopy, diagnostic 02/08/2014 ENDOSCOPY, UPPER GI, DIAGNOSTIC, WITH OR WITHOUT SPECIMENS performed by Wally Pfeiffer MD at [facility] MAIN OR ??? Pro lap, diagnostic abdomen 02/10/2014 LAPAROSCOPY, DIAGNOSTIC, ABDOMEN performed by Wally Pfeiffer MD at [facility] MAIN OR ??? Pro excise excess skin tissue, abdomen N/A 05/17/2016 ABDOMINOPLASTY performed by Karlene Valencia MD at [facility] MAIN OR ??? Pro repair incisional hernia, reducible N/A 05/17/2016 REPAIR INITIAL INCISIONAL OR VENTRAL HERNIA REDUCIBLE performed by Stephanie Ortega MD at [facility] LOVELY ??? N/A 05/17/2016 MODIFIER PANNICULECTOMY performed by Karlene Valencia MD at [facility] MAIN OR Social History: patient [...] timed interventions: 0 minutes (initial eval) Pager: [phone] JEAN-PAUL HILL PT 05/19/2016 Physical Therapy Rehabilitation [...] Ortega MD - 05/18/2016 1:49 PM EDT [facility] Operative Note Patient Name: Eugene Rueda : [id number] MR#: [id number] Case Date: 05/17/2016 Surgeon: Surgeon(s) and Role: [...] repair (recurrent), with mesh. SURGEON: Dr. Ortega. HORSE BUYER: Shon. Mr. Rueda was seen preoperatively by [...] using a #1 PDS suture in a avgtv-kelz-fnfw-type manner. Interrupted full-thickness sutures were brought through [...] Coverage: yes Primary Insurance: MEDICARE Secondary Insurance: Prepair OOS Prescription Coverage: Insurance as noted [facility]: [phone] Other: n/a Primary Care Provider: MANOLO CASTRO MD [phone] Patient/Caregiver Goals of Treatment: Return home with [...] transition of care planning. CONRAD Warner Pager: [phone] * Plan of Care - Ana Whitlock [...] adaptive equipment provided;assistance provided to decrease frustration Matehws Fall Risk History of Falling 0 -- [...] Valencia MD - 05/17/2016 10:15 AM EDT [facility] Operative Note Patient Name: Eugene Rueda : [id number] MR#: [id number] Case Date: 05/17/2016 Surgeon: Surgeon(s) and Role: [...] then irrigated the abdomen copiously. Two #19 Eritrean Rao drains were inserted, 1 on each [...] Operative Note Patient Name: Eugene Rueda : [id number] MR#: [id number] Case Date: 05/17/2016 Surgeon: Surgeon(s) and Role: [...] Procedure Name Priority Date/Time Associated Diagnosis Comments CUT ORDER HAND SCAN 05/21/2016 12:00 AM EDT POCT GLUCOSE [...] in this encounter Results * SCAN DOC: CUT ORDER HAND (05/21/2016 12:00 AM EDT) Anatomical Region Laterality Modality Other Scanning Provider MEDIA MGR SCAN EXT O RDR/RSLT * POCT Glucose (05/20/2016 8:21 AM EDT) Glucose, POC 134 65 - 199 mg/dL [facility] Comment: Supplemental ranges: <140 mg/dL before meals <180 mg/dL all other times of the day Blood specimen (specimen) 05/20/2016 8:21 AM EDT 05/20/2016 8:21 AM EDT Karlene Valencia MD POINT OF CARE TEST O SADIA Performing Organization Address [facility] Co de Phone Number [facility] [place] [address] * POCT Glucose (05/19/2016 8:57 PM EDT) Glucose, POC 131 65 - 199 mg/dL [facility] Comment: Supplemental ranges: <140 mg/dL before meals <180 mg/dL all other times of the day Blood specimen (specimen) 05/19/2016 8:57 PM EDT 05/19/2016 8:57 PM EDT Karlene Valencia MD POINT OF CARE TEST O SADIA [facility] [place] [address] * POCT Glucose (05/19/2016 5:02 PM EDT) Glucose, POC 120 65 - 199 mg/dL [facility] Comment: Supplemental ranges: <140 mg/dL before meals <180 mg/dL all other times of the day Blood specimen (specimen) 05/19/2016 5:02 PM EDT 05/19/2016 5:02 PM EDT Karlene Valencia MD POINT OF CARE TEST O RDERABLES Performing Organization Address [facility] Co de Phone Number [facility] [place] [address] * POCT Glucose (05/19/2016 11:41 AM EDT) Glucose, POC 140 65 - 199 mg/dL [facility] Comment: Supplemental ranges: <140 mg/dL before meals <180 mg/dL all other times of the day Blood specimen (specimen) 05/19/2016 11:41 AM EDT 05/19/2016 11:41 AM EDT Karlene Valencia MD POINT OF CARE TEST O RDERAALYSHA Performing Organization Address [facility] Co de Phone Number [facility] [place] [address] * POCT Glucose (05/19/2016 7:37 AM EDT) Glucose, POC 134 65 - 199 mg/dL [facility] Comment: Supplemental ranges: <140 mg/dL before meals <180 mg/dL all other times of the day Blood specimen (specimen) 05/19/2016 7:37 AM EDT 05/19/2016 7:37 AM EDT Karlene Valencia MD POINT OF CARE TEST O RDERABLES [facility] [place] [address] * POCT Glucose (05/18/2016 8:48 PM EDT) Glucose, POC 173 65 - 199 mg/dL [facility] Comment: Supplemental ranges: <140 mg/dL before meals <180 mg/dL all other times of the day Blood specimen (specimen) 05/18/2016 8:48 PM EDT 05/18/2016 8:48 PM EDT Karlene Valencia MD POINT OF CARE TEST O RDERAALYSHA [facility] [place] [address] * POCT Glucose (05/18/2016 4:45 PM EDT) Glucose, POC 125 65 - 199 mg/dL [facility] Comment: Supplemental ranges: <140 mg/dL before meals <180 mg/dL all other times of the day Blood specimen (specimen) 05/18/2016 4:45 PM EDT 05/18/2016 4:45 PM EDT Karlene Valencia MD POINT OF CARE TEST O DYLANERAALYSHA [facility] [place] [address] * POCT Glucose (05/18/2016 12:14 PM EDT) Glucose, POC 137 65 - 199 mg/dL [facility] Comment: Supplemental ranges: <140 mg/dL before meals <180 mg/dL all other times of the day Blood specimen (specimen) 05/18/2016 12:14 PM EDT 05/18/2016 12:14 PM EDT Karlene Valencia MD POINT OF CARE TEST O RDERAALYSHA [facility] [place] [address] * POCT Glucose (05/18/2016 8:09 AM EDT) Glucose, POC 178 65 - 199 mg/dL [facility] Comment: Supplemental ranges: <140 mg/dL before meals <180 mg/dL all other times of the day Blood specimen (specimen) 05/18/2016 8:09 AM EDT 05/18/2016 8:09 AM EDT Karlene Valencia MD POINT OF CARE TEST O RDERABLES [facility] [place] [address] * POCT Glucose (05/17/2016 9:32 PM EDT) Glucose, POC 172 65 - 199 mg/dL [facility] Comment: Supplemental ranges: <140 mg/dL before meals <180 mg/dL all other times of the day Blood specimen (specimen) 05/17/2016 9:32 PM EDT 05/17/2016 9:32 PM EDT Karlene Valencia MD POINT OF CARE TEST O RDERAALYSHA [facility] [place] [address] * POCT Glucose (05/17/2016 4:14 PM EDT) Glucose, POC 186 65 - 199 mg/dL [facility] Comment: Supplemental ranges: <140 mg/dL before meals <180 mg/dL all other times of the day Blood specimen (specimen) 05/17/2016 4:14 PM EDT 05/17/2016 4:14 PM EDT Karlene Valencia MD POINT OF CARE TEST O RDERAALYSHA [facility] [place] [address] * POCT Glucose (05/17/2016 10:41 AM EDT) Glucose, POC 185 65 - 199 mg/dL [facility] Comment: Supplemental ranges: <140 mg/dL before meals <180 mg/dL all other times of the day Blood specimen (specimen) 05/17/2016 10:41 AM EDT 05/17/2016 10:41 AM EDT Karlene Valencia MD POINT OF CARE TEST O SADIA Performing Organization Address [facility] Co de Phone Number [facility] [place] [address] * POCT Glucose (05/17/2016 6:40 AM EDT) Glucose, POC 131 65 - 199 mg/dL [facility] Comment: Supplemental ranges: <140 mg/dL before meals <180 mg/dL all other times of the day Blood specimen (specimen) 05/17/2016 6:40 AM EDT 05/17/2016 6:40 AM EDT Karlene Valencia MD POINT OF CARE TEST Pat MCCULLOUGH Performing Organization Address [facility] de Phone Number [facility] [place] [address] * Prothrombin Time (05/17/2016 5:56 AM EDT) Prothrombin Time 14.6 12.0 - 15.0 sec [facility] Comment: An INR <2.0 [...] International Normalization Ratio 1.1 0.9 - 1.1 [facility] Blood specimen (specimen) 05/17/2016 5:56 AM EDT 05/17/2016 6:33 AM EDT Narrative Resulting Agency Comment Spec In Lab Karlene Valencia MD HEMATOLOGY ORDERABLE S [facility] [place] [address] documented in this encounter Visit Diagnoses Not [...] NIGHTLY, First dose (after last modification) on [facility] 05/17/16 at 2215, Until Discontinued, CORRECTION BOLUS [...] NIGHTLY, First dose (after last modification) on [facility] 05/17/16 at 2215, Until Discontinued, CORRECTION BOLUS [...] Unit) documented in this encounter Care Teams General Matcher Relationship Specialty Start Date End Date Manolo Castro MD [address] [place] [address] PCP - General 05/14/12 04/21/17 documented as of this encounter
--- OUTSIDE RECORDS SUMMARY | 2024-08-05 21:26 | XMS_ITS | Encounter Summary ---
Author Organization [facility] [place] [address] Care Team Providers Care Civil Structural Designer Name Role Phone Manolo Castro MD Primary Care Provider [phone] Reason for Visit * Reason Comments Follow-up S/P SPIKE SURG 02/08/14 Encounter Details Date Type Department Care Team (Late st Contact Info) Description 03/02/2014 3:40 PM EDT Office [place] [address] Wally Pfeiffer MD [facility] [place] [address] Post-operative state (Primary Dx) Discharge Disposition: Home [...] First Post-operative Follow up visit Contact information: [facility] Admin coordinator Tracy: [phone] Dietitian: [phone] Surgeons/ nurse practitioner: [phone] Nurse line: [phone] Your excess body weight lost: 35% Next [...] of every month from 1-[address] [facility] Internet resources: Www.DocuSign www.[employer] Www.baseclick.Tagged Www.ChoosemyFab'entech.gov www.EthicsGame.Tagged Books: - Recipes for Life after Weight [...] states. Biggest support is his son Momo. 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 MEDICATIONS: [...] protein- does this twice a day Dinner [place] squash soup- added unflavored protein powder/cream soups/shrimp [...] status documented in this encounter Care Teams Civil Structural Designer Relationship Specialty Start Date End Date Manolo Castro MD [address] [place] [address] PCP - General 05/14/12 04/21/17 documented as of this encounter
--- OUTSIDE RECORDS SUMMARY | 2024-08-05 21:26 | XMS_ITS | Encounter Summary ---
[place] [address] Care Team Providers Care Guest Services Director Name Role Phone Manolo Castro MD Primary Care Provider [phone] Encounter Details Date Type Department Care Team (Late st Contact Info) Description 01/13/2016 Telephone [place] [id number] Kenyatta Mcclure Social History Tobacco Use Types [...] on filedocumented in this encounter Care Teams Guest Services Director Relationship Specialty Start Date End Date Manolo Castro MD [address] [place], [place] [id number] PCP - General 05/14/12 04/21/17 documented as of this encounter
--- OUTSIDE RECORDS SUMMARY | 2024-08-05 21:26 | XMS_ITS | Encounter Summary ---
Author Organization [facility] Address [facility] [place] [address] Care Team Providers Care Layout Worker Name Role Phone Manolo Castro MD Primary Care Provider [phone] Reason for Referral * Consultation (Routine) - Specialty Diagnoses / Procedures Referred By Sonal dawson Referred To Contact Plastic Surgery Diagnoses Status post bariatric surgery Intestinal malabsorption, unspecified type Symptomatic abdominal panniculus Narda Allen, MIGUEL [facility] [place] [address] Adis Membreno MD [facility] [place] [address] Referral ID Status Reason Start Date Expiration Date V isits Requested Visits Authorized [id number] Consult, Test & Treat 12/08/2015 12/07/2016 1 1 Encounter Details Date Type Department Care Team (Latest Contact Info) Description 12/08/2015 10:30 AM EST Office [place] [address] Narda Allen MULTIPLE [employer]IL WINDER [facility] [place] [address] Disorder of iron metabolism; Status post bariatric [...] [facility] Admin coordinator Tracy: [phone] Dietitian: [phone] Surgeons/ nurse practitioner: [phone] Nurse line: [phone] Your excess body weight lost: 41.7% Keep up the hard work! Testin. Labwork: Today. Go to [facility] [employer] [facility] [employer] Area 3L, which is 1 flight below [...] after surgery, and yearly thereafter. Please call [phone] if you do not receive an appointment [...] every month from 1-2 PM at [facility]- no registration required Back on Track group visits are held the Saturday of the [facility]- call Tracy to register [phone] Internet resources: www.[employer] www.Cobrain www.J[employer] www.Plain Vanilla (adelfo Hernandez) [email or web address]/[facility] CITYBariatricSurgery Books & Magazines: - Recipes for Life After Weight Loss Surgery by Claudia Mcdonald - Shrink Yourself by Dr Darrel Kaur - Nutrition Action Health Letter subscribe at [email or web address] - Eating Well - Cooking Light documented [...] Surgical History Procedure Date Laparoscopic takedown of Ronnlel fundoplication and conversion to Aviva en Y gastric bypass (Dr. Pfeiffer) 02/08/2014 Diagnostic laparoscopy, evacuation of intra-abdominal blood 02/10/2014 ??? Laparoscopic paraesophageal hernia repair and Ronnell fundoplication 07/16/2002 ??? Laparoscopic umbilical hernia repair with Bard Ventrio ST circular mesh (11.4 cm in diameter) at [facility] 10/15/2012 ??? Vasectomy ??? Right carpal tunnel release ~2007 ??? Septoplasty, Bilateral inferior turbinoplasty, Uvulopalatopharyngoplasty 08/25/1999 ??? Tonsillectomy ~1955 ??? 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 He urinates [...] level: as per RD note Employment/social: 2 partner jobs/ single Health-related habits: Tobacco: none Alcohol: [...] If labwork is done by the primary neonatal critical care nurse: please send a copy to the Bariatric Surgery Program, General Surgery Clinic, [facility], attention Narda Allen APRN. Questions regarding [facility] Bariatric Surgery Program patients: please call Shayy Allen APRN at [phone] or [phone] beeper [phone]. E-mail: [email or web address] * Keila Hickman - 12/07/2015 3:36 PM [...] Biggest support is his son Momo. 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 Vitamin/Mineral Supplements (reported by patient): [...] per day: 50-65 grams Calories per day: 8662-6540 kcal Hydrating Fluids: 3-5 12 oz bottles [...] (ABNORMAL) Hemoglobin A1c (12/08/2015 11:50 AM EST) [facility] Hemoglobin A1c 6.9(H) 4.3 - 5.6 % [facility] Comment: Reference Range: 4.3 - [...] Mellitus, Diabetes Care 2013; 36: Suppl. 1, O51-03 Estimated Average Glucose 151 mg/dL [facility] Comment: eAG [...] resources are available on the ADA website: http://Buy buy tea.V[employer]s/DHMCadacalc Keyon MACHADO, Buddy J, Maynor R, et al. ??Translating the A1C assay into estimated average glucose values. ??Diabetes Care 2008:31(8):7334-9106. Blood specimen (specimen) 12/08/2015 11:50 AM EST 12/08/2015 11:58 AM EST Narrative Resulting Agency Comment Spec In Lab Wally Pfeiffer MD CHEMISTRY ORDERABLE S Performing Organization Address [facility] Co de Phone Number [facility] [place] [address] * TSH (12/08/2015 11:50 AM EST) Thyroid Stimulating Hormone 2.80 0.27 - 4.20 mcIU/mL [facility] Blood specimen (specimen) 12/08/2015 11:50 AM EST 12/08/2015 11:58 AM EST Narrative Resulting Agency Comment Spec In Lab Wally Pfeiffer MD CHEMISTRY ORDERABLE S Performing Organization Address [facility] de Phone Number [facility] [place] [address] * Folate, serum (12/08/2015 11:50 AM EST) Pathologist [facility] Folate 19.4 4.6 - 34.8 ng/mL [facility] Blood specimen (specimen) 12/08/2015 11:50 AM EST 12/08/2015 11:58 AM EST Narrative Resulting Agency Comment Spec In Lab Wally Pfeiffer MD CHEMISTRY ORDERABLE S Performing Organization Address City/[facility]/ZIP Co de Phone Number [facility] [place] [address] * (ABNORMAL) Vitamin B12 (12/08/2015 11:50 AM EST) [facility] Vitamin B12 1,487(H) 207 - 974 pg/mL [facility] Blood specimen (specimen) 12/08/2015 11:50 AM EST 12/08/2015 11:58 AM EST Narrative Resulting Agency Comment Spec In Lab Wally Pfeiffer MD CHEMISTRY ORDERABLE S Performing Organization Address [facility] Co de Phone Number [facility] [place] [address] * Vitamin B1, whole blood (12/08/2015 11:50 AM EST) [facility] Vit B1 Lvl Wb (FEBRUARY) 143 70 - 180 nmol/L [facility] Comment: Test Performed by: [facility] [address], [place] [address] Senior Business Analyst: Bronwyn Hoyos, Ph.D. Blood specimen (specimen) 12/08/2015 11:50 AM EST 12/08/2015 1:29 PM EST Narrative Resulting Agency Comment Spec In Lab Wally Pfeiffer MD LAB SEND OUT ORDERA BLES Performing Organization Address City/[facility] Co de Phone Number [facility] [place] [address] * VIT D Total Evaluation (12/08/2015 11:50 AM EST) [facility] Vitamin D Total 25 OH 44 30 - 100 ng/mL [facility] Comment: Deficient <10 ng/mL Insufficient 10 to 29 ng/mL Sufficient 30 to 100 ng/mL Potential Intoxication >100 ng/mL According to the [place] National Osteoporosis Foundation, Vitamin D concentrations >30 ng/mL are sufficient to protect bone health. ??The National Kidney Foundation has similarly stated that patients with Vitamin D concentrations <30ng/mL should be considered to be insufficient or deficient. http://Room n House/[facility] CITYnatlkidneyfoundation http://Room n House/[facility] OKLAH[facility] CITYVitD The IDS iSYS Vitamin D Immunoassay detects both 25-OH Vitamin D2 and 25-OH Vitamin D3, but only a total Vitamin D concentration is reported. Blood specimen (specimen) 12/08/2015 11:50 AM EST 12/08/2015 11:58 AM EST Narrative Resulting Agency Comment Spec In Lab Wally Pfeiffer MD CHEMISTRY ORDERABLE S Performing Organization Address City/[facility]/ZIP Co de Phone Number [facility] [place] [address] * (ABNORMAL) PTH (12/08/2015 11:50 AM EST) Parathyroid Hormone 87(H) 15 - 65 pg/mL [facility] Blood specimen (specimen) 12/08/2015 11:50 AM EST 12/08/2015 11:58 AM EST Narrative Resulting Agency Comment Spec In Lab Wally Pfeiffer MD CHEMISTRY ORDERABLE S Performing Organization Address City/[facility]/ZIP Co de Phone Number [facility] [place] [address] * Ferritin (12/08/2015 11:50 AM EST) Ferritin 72 30 - 400 ng/mL [facility] Comment: Pediatric reference ranges not verified at [facility], interpret with caution. Reference ranges for females greater than 50 years of age approach values for men, i.e., 30-400 ng/mL. Blood specimen (specimen) 12/08/2015 11:50 AM EST 12/08/2015 11:58 AM EST Narrative Resulting Agency Comment Spec In Lab Wally Pfeiffer MD CHEMISTRY ORDERABLE S Performing Organization Address [facility] Co de Phone Number [facility] [place] [address] * (ABNORMAL) Iron and TIBC (12/08/2015 11:50 AM EST) Iron 50 45 - 160 mcg/dL [facility] TIBC 321 250 - 450 mcg/dL [facility] Iron Saturation 16(L) 20 - 50 % [facility] Blood specimen (specimen) 12/08/2015 11:50 AM EST 12/08/2015 11:58 AM EST Narrative Resulting Agency Comment Spec In Lab Wally Pfeiffer MD CHEMISTRY ORDERABLE S Performing Organization Address [facility] de Phone Number [facility] [place] [address] * (ABNORMAL) Comprehensive metabolic panel (non-fasting) (12/08/2015 11:50 AM EST) [facility] Glucose 146 65 - 199 mg/dL [facility] Comment:Diabetes: >=200 mg/d L plus symptoms Blood Urea Nitrogen 18 10 - 20 mg/dL [facility] Creatinine 1.20 0.80 - 1.50 mg/dL [facility] Comment: Please note that the pediatric reference intervals supplied above were not validated at [facility]. Results from pediatric patients should be interpreted in conjunction to the patient's age, height and muscle mass. Sodium 143 135 - 145 mmol/L [facility] Potassium 4.4 3.5 - 5.0 mmol/L [facility] Comment: Please note: ??Patients with WBC >100,000 may have falsely elevated Potassium levels. ??For accurate Potassium quantification in these patients send serum separator tube (gold top) for subsequent determinations. ??Contact the Clinical Chemistry Laboratory if there are any questions. Chloride 105 98 - 107 mmol/L [facility] Carbon Dioxide 22 22 - 31 mmol/L [facility] Anion Gap 16(H) 5 - 15 mmol/L [facility] Calcium 8.9 8.5 - 10.5 mg/dL [facility] Protein, Total 7.2 6.1 - 8.0 gm/dL [facility] Albumin 4.3 3.2 - 5.2 gm/dL [facility] Aspartate Aminotransferase 23 0 - 39 unit/L [facility] Alanine Aminotransferase 24 0 - 55 unit/L [facility] Alkaline Phosphatase 59 40 - 120 unit/L [facility] Bilirubin, Total 0.3 0.2 - 1.3 mg/dL [facility] Bilirubin, Direct 0.1 0.0 - 0.3 mg/dL [facility] Est Glomerular Filtration Rate >60 >=60 [facility] Comment: This estimated [...] the following links into your internet browser. http://Room n House/DHnkdep http://Room n House/DHMCnkf Blood specimen (specimen) 12/08/2015 11:50 AM EST 12/08/2015 11:58 AM EST Narrative Resulting Agency Comment Spec In Lab Wally Pfeiffer MD CHEMISTRY ORDERABLE S [facility] [place] [address] * (ABNORMAL) Hemogram (12/08/2015 11:50 AM EST) White Blood Cell 7.6 4.0 - 10.0 x10(3)/mc L [facility] Red Blood Cell 4.35(L) 4.63 - 6.08 x10(6)/mc L [facility] Hemoglobin 13.0(L) 13.7 - 17.5 gm/dL [facility] Hematocrit 38.4(L) 40.0 - 51.0 % [facility] Mean Cell Volume 88.3 79.0 - 92.0 fL [facility] Mean Cell Hemoglobin 29.9 25.6 - 32.2 pg [facility] Mean Cell Hemoglobin Concentration 33.9 32.0 - 36.5 gm/dL [facility] Platelet 199 145 - 370 x10(3)/mc L [facility] RDW Standard Deviation 47.4(H) 35.0 - 46.0 fL [facility] RDW coefficient of variation 14.7(H) 10.9 - 14.4 % [facility] Mean Platelet Volume 9.8 9.0 - 12.0 fL [facility] Blood specimen (specimen) 12/08/2015 11:50 AM EST 12/08/2015 11:58 AM EST Narrative Resulting Agency Comment Spec In Lab Wally Pfeiffer MD HEMATOLOGY ORDERABL ES Performing Organization Address City/State/[facility] Co de Phone Number [facility] [place] [address] documented in this encounter Visit Diagnoses Diagnosis [...] uncontrolled documented in this encounter Care Teams Layout Worker Relationship Specialty Start Date End Date Manolo Castro MD [address] [place] [address] PCP - General 05/14/12 04/21/17 documented as of this encounter
--- OUTSIDE RECORDS SUMMARY | 2024-08-05 21:26 | XMS_ITS | Encounter Summary ---
Author Organization [facility] [place] [address] Care Team Providers Care Hotel Or Motel Manager Name Role Phone Manolo Castro MD Primary Care Provider [phone] Reason for Visit * Reason Onset Date Comments No Show 08/05/2014 Encounter Details Date Type Department Care Team ([facility] Contact Info) Description 08/05/2014 Telephone [place] [address] Narda Allen, [employer]ORY WORKER [facility] [place] [address] No Show Social History Tobacco Use Types [...] on filedocumented in this encounter Care Teams Hotel Or Motel Manager Relationship Specialty Start Date End Date Manolo Castro MD [address] [place] [address] PCP - General 05/14/12 04/21/17 documented as of this encounter
--- OUTSIDE RECORDS SUMMARY | 2024-08-05 21:27 | XMS_ITS | Encounter Summary ---
Author Organization [facility] [place] [address] Care Team Providers Care Cycle Consultant Name Role Phone Manolo Castro MD Primary Care Provider [phone] Encounter Details Date Type Department Care Team (Latest Contact Info) Description 02/08/2014 7:54 AM EDT - 02/12/2014 12:50 PM EDT Hospital Encounter [address] [place] [address] Misty De Guzman MD [facility] [place] [address] Atrial fibrillation Discharge Disposition: Home Social History [...] EDT BARIATRIC SURGERY DISCHARGE INFORMATION CONTACT INFORMATION: [phone] Surgeons: Cyndi Lujan Laycock and Hadley [phone] Artist Woodblock: [phone] (Saturday through Saturday, 8:00 AM -5:00 PM) Dietitian: [phone] Non-business hours: [phone], ask for general surgeon restrictive preparation operator FOR EMERGENCIES: CALL 911 (trouble breathing, chest [...] had open gastric bypass and have kellie: Powell should be removed 10 - 12 days after surgery. This can be done at [facility] or via Primary Care Provider (PCP). Do [...] 200 on more than 3 rechecks, [facility] or diabetic [...] Follow up with primary care doctor or marketing development specialist in 1-2 weeks. Bring meter to [...] Provider Department Center 03/02/2014 3:00 PM Bariatric, Rocket Engine Mechanic [facility] 03/02/2014 3:40 PM [...] 10:09 AM EDT Care Management/ CRC Pager# [phone]/ Assessment and Initial discharge planning S: I am feeling pretty good today. I had some jello and some apple juice. That is a good thing! My son Momo will be helping me when I am able to go home. O: Met with patient this morning. Notes reviewed. [place] [facility] [facility]. Patient has Cigna, National OOS Blue PPO, and Medicare (part A only) insurance. [facility] Patient is POD# 3 laparoscopic Keysha-en-Y gastric [...] q4hr prn. 99% on 2liters oxygen via castings drafter this morning. A: Patient progressing post-op. Patient [...] is stable and Pain well controlled DC WINDOW AND SIDING CRAFTSMAN and start Oxycodone liquid for pain controll [...] Office of Care Management (OCM) / Clinical Bush And Vine Fruit Crop Farmer (CRC)/ Initial Assessment Discussed patient with Provider Team and in multidisciplinary discharge-planning rounds. Reviewed record; patient off unit for procedure. Introduced/reviewed CRC role and services accepted. REASON for HOSPITALIZATION:s/p keysha-en-y gastric bypass NPO; WINDOW AND SIDING CRAFTSMAN; IVF's;UGI/SBF pending;Lovenox (on Coumadin for AF) PMH Past Medical History Diagnosis Date ??? Blood disorder ??? Circulatory disease ??? 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 PRIMARY CARE PHYSICIAN: MANOLO CASTRO MD [place] [address] / [facility] [address] POTENTIAL DISCHARGE NEEDS: none anticipated PATIENT/FAMILY EDUCATION NEEDS:per discharge summary ANTICIPATED BARRIERS TO DISCHARGE:none TRANSPORTATION @ D/C: PLAN: CRC will continue to monitor progress, follow for continuity of care and assist with discharge planning while hospitalized KENYATTA SANDS RN CRC for Melba Elmore RN CRC pager [phone] . * Ricky Trotter MD - 02/09/2014 [...] pain and nausea at this time. Using WINDOW AND SIDING CRAFTSMAN appropriately, patient very drowsy but easily woken. Lap sites CDI. HR irreg. Will continue to monitor. * Radha Sanchez RN - 02/08/2014 4:49 PM EDT Report to Claire 4w. Pt sleepy, easily arousable. States he is comfortable. Gave prepper with instruction. documented in this encounter H&P [...] currently had full participation in the [facility] Bariatric Surgery Program and meets NIH criteria [...] majority of our 40 minutes today in [id number] conversation regarding various treatment options for obesity [...] 02/13/2014 12:56 PM EDTAssociated Order(s): SCAN DOC: CLEARING TUB WORKER documented in this encounter Miscellaneous Notes * [...] part of your care. Bariatric Surgery - [phone]: Follow-up with Dr. De Guzman PCP: MANOLO CASTRO MD, . Please follow-up with your PCP in 1-2 weeks or sooner as needed. Scheduled Appointments: The following appointments have been scheduled on your behalf: Future Appointments and Orders Future Appointments: Provider: Department: Dept Phone: Center: 03/02/2014 3:00 PM Rocket Engine Mechanic Bariatric General Surgery [phone] [facility] 03/02/2014 3:40 PM Misty De Guzman MD General Surgery [phone] [facility] Outpatient Services/Studies: No discharge procedures on file. Instructions Given to Patient at Discharge: Provider Instructions BARIATRIC SURGERY DISCHARGE INFORMATION CONTACT INFORMATION: [phone] Surgeons: Cyndi Lujan Laycock and Hadley [phone] Artist Woodblock: [phone] (Saturday through Saturday, 8:00 AM -5:00 PM) Dietitian: [phone] Non-business hours: [phone], ask for general surgeon restrictive preparation operator FOR EMERGENCIES: CALL 911 (trouble breathing, chest [...] after surgery. This can be done at [facility] or via Primary Care Provider (PCP). Do [...] Follow up with primary care doctor or marketing development specialist in 1-2 weeks. Bring meter to [...] Provider Department Center 03/02/2014 3:00 PM Bariatric, Rocket Engine Mechanic [facility] 03/02/2014 3:40 PM Mist[facility] De Guzman [facility] General Instructions None Future Appointments and Orders Future Appointments: Provider: Department: Dept Phone: Center: 03/02/2014 3:00 PM Rocket Engine Mechanic Bariatric General Surgery [phone] [facility] 03/02/2014 3:40 PM Misty De Guzman MD General Surgery [phone] [facility] Call your doctor if: Please call [...] managed by the Bariatric Surgery Team at [facility]. If you have any questions or concerns, please feel free to contact us. Provider Contact Information: General Surgery Clinic: [facility] (after business hours): CC: MANOLO CASTRO MD [...] flowsheet for pain assessment. Pt with Dilaudid WINDOW AND SIDING CRAFTSMAN 0.3/15/5 pt understands use, not utilized overnight. [...] pain. Pt stating good relief with Dilaudid WINDOW AND SIDING CRAFTSMAN. Pt reporting no nausea,SOB or chest pain. Assessment as documented. Will continue to monitor. * Op Note - Misty De Guzman MD - 02/10/2014 2:[address] [facility] Operative Note Patient Name: Eugene Rueda : [id number] MR#: [id number] Case Date: 02/10/2014 Surgeon: Surgeon(s) and Role: * Misty De Guzman MD - Primary * Ricky Trotter MD - Resident-Clinical Psychologist * Homero Hernandez MD - [facility] Preoperative diagnosis: post-op bleeding s/p rnygb [...] Operative Note Patient Name: Eugene Rueda : [id number] MR#: [id number] Case Date: 02/10/2014 Surgeon: Surgeon(s) and Role: * Misty De Guzman MD - Primary * Ricky Trotter MD - Resident-Clinical Psychologist * Homero Hernandez MD - Resident-Clinical Psychologist Preoperative diagnosis: post-op bleeding s/p rnygb Postoperative [...] Operative Note Patient Name: Eugene Rueda : [id number] MR#: [id number] Case Date: 02/10/2014 Surgeon: Surgeon(s) and Role: * Misty De Guzman MD - Primary * Ricky Trotter MD - Resident-Clinical Psychologist * Homero Hernandez MD - Resident-Clinical Psychologist Preoperative diagnosis: post-op bleeding s/p rnygb Postoperative diagnosis: post-op bleeding s/p rnygb Procedure(s): LAPAROSCOPY, DIAGNOSTIC, ABDOMEN Anesthesia: General Findings: dense clot under liver and diaphragm, no site of active bleeding Complications: none Fluids: 1300cc Estimated Blood Loss: 500cc Drains: 10 Ghanaian MONICA drain Disposition: awakened from anesthesia, extubated [...] Operative Note Patient Name: Eugene Rueda : [id number] MR#: [id number] Case Date: 02/08/2014 Surgeon: Surgeon(s) and Role: * Misty De Guzman MD - Primary * oHmero Hernandez MD - Fellow * Ricky Trotter [...] Guzman MD - 02/08/2014 9:[address] [facility] Operative Note Patient Name: Eugene Rueda : [id number] MR#: [id number] Case Date: 02/08/2014 Surgeon: Surgeon(s) and Role: [...] engaged with the bariatric surgery program at [facility]. He has multiple weight-related comorbidities, he meets NIH criteria for weight loss surgery, and he has had full participation in the [facility] bariatric surgery program. Following review of his [...] posteriorly and encircle the esophagus with a [place] drain. This was held in place using [...] all other items from the esophagus. The Henning 60 blue load was angled horizontally at [...] and the small-bowel serosa, and using an Henning 60 with a white load the jejunum [...] fashioned using a single firing of the Henning 60 with a white load. That enterotomy [...] limb, and a partial firing of the Henning 60 blue load at 30 mm was formed for the gastrojejunostomy. A 30-Ghanaian bougie was then passed by Anesthesia down [...] Procedure Name Priority Date/Time Associated Diagnosis Comments CLEARING TUB WORKER SCAN 02/13/2014 12:56 PM EDT POCT GLUCOSE [...] in this encounter Results * SCAN DOC: CLEARING TUB WORKER (02/13/2014 12:56 PM EDT) Anatomical Region Laterality Modality Other Narrative 02/13/2014 1:14 PM EDT Procedure Note Provider, Scanning - 02/13/2014 12:56 PM EDT Scanning Provider MEDIA MGR SCAN EXT O RDR/RSLT * POCT Glucose (02/12/2014 12:09 PM EDT) Glucose, POC 145 60 - 199 mg/dL [facility] MILLENNIUM Comment: Supplemental ranges: <110 mg/dL before meals <200 mg/dL all other times of the day Blood specimen (specimen) 02/12/2014 12:09 PM EDT 02/12/2014 12:09 PM EDT Misty De Guzman MD POINT OF CARE TEST ORDERABLES [facility] KRAFTIUM * POCT Glucose (02/12/2014 7:04 AM EDT) Glucose, POC 134 60 - 199 mg/dL [facility] Comment: Supplemental ranges: <110 mg/dL before meals <200 mg/dL all other times of the day Blood specimen (specimen) 02/12/2014 7:04 AM EDT 02/12/2014 7:04 AM EDT Misty De Guzman MD POINT OF CARE TEST ORDERABLES DERICK KRAFTIUM * (ABNORMAL) Differential, Automated (02/12/2014 5:32 AM EDT) Neutrophil % 70.2 34.0 - 71.0 % [facility] PH[facility]ENIXNER MILLENNIUM Neutrophil Absolute 5.11 1.50 - 6.30 [...] De Guzman MD HEMATOLOGY ORDERABL ES [facility] * (ABNORMAL) Basic Metabolic Panel (non-fasting) (02/12/2014 5:32 AM EDT) [facility] Glucose 131 60 - 199 mg/dL CERNER MILLENNIUM Comment:Diabetes: >=200 mg/d L plus symptoms Blood Urea Nitrogen 16 10 - 20 mg/dL CERNER MILLENNIUM Creatinine 0.67(L) 0.80 - 1.50 mg/dL CERNER MILLENNIUM Comment: Please note that the pediatric reference intervals supplied above were not validated at [facility]. Results from pediatric patients should be interpreted [...] of variation 14.3 10.9 - 14.4 % [facility] Mean Platelet Volume 9.3 9.0 - 12.0 fL [facility] Blood specimen (specimen) 02/12/2014 5:32 AM EDT 02/12/2014 5:58 AM EDT Narrative Resulting Agency Comment Spec In Lab Misty De Guzman MD HEMATOLOGY ORDERABL ES Performing Organization Address [facility] de Phone Number [facility] * POCT Glucose (02/12/2014 3:50 AM EDT) Glucose, POC 123 60 - 199 mg/dL [facility] Comment: Supplemental ranges: <110 mg/dL before meals <200 mg/dL all other times of the day Blood specimen (specimen) 02/12/2014 3:50 AM EDT 02/12/2014 3:50 AM EDT Misty De Guzman MD POINT OF CARE TEST ORDERABLES Performing Organization Address [facility] de Phone Number [facility] * POCT Glucose (02/11/2014 11:26 PM EDT) Glucose, POC 178 60 - 199 mg/dL [facility] Comment: Supplemental ranges: <110 mg/dL before meals <200 mg/dL all other times of the day Blood specimen (specimen) 02/11/2014 11:26 PM EDT 02/11/2014 11:26 PM EDT Misty De Guzman MD POINT OF CARE TEST ORDERABLES Performing Organization Address [facility] de Phone Number [facility] * POCT Glucose (02/11/2014 7:20 PM EDT) Glucose, POC 140 60 - 199 mg/dL [facility] Comment: Supplemental ranges: <110 mg/dL before meals <200 mg/dL all other times of the day Blood specimen (specimen) 02/11/2014 7:20 PM EDT 02/11/2014 7:20 PM EDT Misty De Guzman MD POINT OF CARE TEST ORDERABLES Performing Organization Address City/[facility] Co de Phone Number DERICK KRAFTIUM * POCT Glucose (02/11/2014 4:15 PM EDT) Glucose, POC 149 60 - 199 mg/dL [facility]FFREYENNI[facility] Comment: Supplemental ranges: <110 mg/dL before meals <200 mg/dL all other times of the day Blood specimen (specimen) 02/11/2014 4:15 PM EDT 02/11/2014 4:15 PM EDT Misty De Guzman MD POINT OF CARE TEST ORDERABLES Performing Organization Address [facility] Phone Number DREICK KRAFTIUM * POCT Glucose (02/11/2014 11:45 AM EDT) Glucose, POC 157 60 - 199 mg/dL [facility] JEFFREYENNIUM Comment: Supplemental ranges: <110 mg/dL before meals <200 mg/dL all other times of the day Blood specimen (specimen) 02/11/2014 11:45 AM EDT 02/11/2014 11:45 AM EDT Misty De Guzman MD POINT OF CARE TEST ORDERABLES Performing Organization Address [facility] de Phone Number DERICK KRAFTIUM * POCT Glucose (02/11/2014 6:56 AM EDT) Glucose, POC 158 60 - 199 mg/dL [facility] MILLENNIUM Comment: Supplemental ranges: <110 mg/dL before meals <200 mg/dL all other times of the day Blood specimen (specimen) 02/11/2014 6:56 AM EDT 02/11/2014 6:56 AM EDT Misty De Guzman MD POINT OF CARE TEST ORDERABLES Performing Organization Address City/[facility] Co de Phone Number DERICK [...] De Guzman MD HEMATOLOGY ORDERABL ES CER[facility]NER MILLENNIUM * (ABNORMAL) Basic Metabolic Panel (non-fasting) (02/11/2014 4:46 AM EDT) [facility] Glucose 152 60 - 199 mg/dL CERNER MILLENNIUM Comment:Diabetes: >=200 mg/d L plus symptoms Blood Urea Nitrogen 17 10 - 20 mg/dL CERNER MILLENNIUM Creatinine 0.90 0.80 - 1.50 mg/dL CERNER MILLENNIUM Comment: Please note that the pediatric reference intervals supplied above were not validated at [facility]. Results from pediatric patients should be interpreted [...] MD CHEMISTRY ORDERABLE S Performing Organization Address [facility] Co de Phone Number [facility] * POCT Glucose (02/11/2014 4:35 AM EDT) Glucose, POC 151 60 - 199 mg/dL [facility] Comment: Supplemental ranges: <110 mg/dL before meals <200 mg/dL all other times of the day Blood specimen (specimen) 02/11/2014 4:35 AM EDT 02/11/2014 4:35 AM EDT Misty De Guzman MD POINT OF CARE TEST ORDERABLES Performing Organization Address [facility] Co de Phone Number [facility] * POCT Glucose (02/10/2014 11:29 PM EDT) Glucose, POC 146 60 - 199 mg/dL [facility] Comment: Supplemental ranges: <110 mg/dL before meals <200 mg/dL all other times of the day Blood specimen (specimen) 02/10/2014 11:29 PM EDT 02/10/2014 11:29 PM EDT Misty De Guzman MD POINT OF CARE TEST ORDERABLES Performing Organization Address [facility] de Phone Number [facility]FF[facility]YCAR[facility]DELET [facility] * POCT Glucose (02/10/2014 7:58 PM EDT) Glucose, POC 112 60 - 199 mg/dL [facility] Comment: Supplemental ranges: <110 mg/dL before meals <200 mg/dL all other times of the day Blood specimen (specimen) 02/10/2014 7:58 PM EDT 02/10/2014 7:58 PM EDT Misty De Guzman MD POINT OF CARE TEST ORDERABLES Performing Organization Address [facility] Phone Number [facility]DO [facility] * POCT Glucose (02/10/2014 4:06 PM EDT) Glucose, POC 141 60 - 199 mg/dL [facility] Comment: Supplemental ranges: <110 mg/dL before meals <200 mg/dL all other times of the day Blood specimen (specimen) 02/10/2014 4:06 PM EDT 02/10/2014 4:06 PM EDT Misty De Guzman MD POINT OF CARE TEST ORDERABLES Performing Organization Address [facility] de Phone Number [facility] JEFFREYCARONDELET [facility] * (ABNORMAL) Differential, Automated (02/10/2014 3:50 PM EDT) Neutrophil % 82.5(H) 34.0 - 71.0 % [facility] Neutrophil Absolute 9.11(H) 1.50 - 6.30 x10(3)/mc L [facility] Lymph % 8.9(L) 19.0 - 53.0 % [facility] Lymphocytes Abs 1.0 1.0 - 3.6 x10(3)/mc [...] Concentration 32.5 32.0 - 36.5 gm/dL [facility]NER MILLENNIUM Platelet 185 145 - 370 x10(3)/mc L [facility]ER[facility]NER MILLENNIUM RDW Standard Deviation 49.1(H) 35.0 - 46.0 fL CERBANNER MILLENNIUM RDW coefficient of variation 14.7(H) 10.9 - 14.4 % CERB[facility]NER MILLENNIUM Mean Platelet Volume 9.5 9.0 - 12.0 fL [facility] MILLENNI[facility] Blood specimen (specimen) 02/10/2014 3:50 PM EDT 02/10/2014 3:56 PM EDT Narrative Resulting Agency Comment Spec In Lab Misty De Guzman MD HEMATOLOGY ORDERABL ES Performing Organization Address City/[facility]/ZIP Co de Phone Number [facility] * POCT Glucose (02/10/2014 12:34 PM EDT) Glucose, POC 160 60 - 199 mg/dL [facility] Comment: Supplemental ranges: <110 mg/dL before meals <200 mg/dL all other times of the day Blood specimen (specimen) 02/10/2014 12:34 PM EDT 02/10/2014 12:34 PM EDT Misty De Guzman MD POINT OF CARE TEST ORDERABLES Performing Organization Address [facility] Co de Phone Number [facility] * (ABNORMAL) Prothrombin Time (02/10/2014 7:33 AM EDT) Prothrombin Time 17.0(H) 12.0 - 15.0 sec [facility] Comment: [facility] Transfusion Committee Guidelines: INR less than 2.0, PTT less than OR equal to 43.5 seconds, or Fibrinogen greater than or equal to 100 mg/dl indicate adequate procoagulant activity for hemostasis in patients without underlying bleeding disorders. International Normalization Ratio 1.3(H) 0.9 - 1.1 [facility] JEFFREYENNIUM Blood specimen (specimen) 02/10/2014 7:33 AM [...] MD HEMATOLOGY ORDERABL ES Performing Organization Address [facility] Co de Phone Number DERICK KRAFTIUM * POCT Glucose (02/10/2014 7:25 AM EDT) Glucose, POC 131 60 - 199 mg/dL [facility]FFRE[facility] Comment: Supplemental ranges: <110 mg/dL before meals <200 mg/dL all other times of the day Blood specimen (specimen) 02/10/2014 7:25 AM EDT 02/10/2014 7:25 AM EDT Misty De Guzman MD POINT OF CARE TEST ORDERABLES Performing Organization Address [facility] de Phone Number DERICK KRAFTIUM * POCT Glucose (02/10/2014 4:11 AM EDT) Glucose, POC 144 60 - 199 mg/dL [facility] Comment: Supplemental ranges: <110 mg/dL before meals <200 mg/dL all other times of the day Blood specimen (specimen) 02/10/2014 4:11 AM EDT 02/10/2014 4:11 AM EDT Misty De Guzman MD POINT OF CARE TEST ORDERABLES Performing Organization Address [facility] de Phone Number DERICK MURPHY * (ABNORMAL) Differential, Automated (02/10/2014 2:40 AM EDT) Neutrophil % 76.9(H) 34.0 - 71.0 % [facility] MILLENNIUM Neutrophil Absolute 8.07(H) 1.50 - 6.30 [...] MD HEMATOLOGY ORDERABL ES Performing Organization Address [facility] Co de Phone Number DERICK MURPHYStarForce TechnologiesNEO * (ABNORMAL) Prothrombin Time (02/10/2014 2:40 AM EDT) Prothrombin Time 16.4(H) 12.0 - 15.0 sec CERNER MILLENNIUM Comment: [facility] Transfusion Committee Guidelines: INR less than 2.0, PTT less than OR equal to 43.5 seconds, or Fibrinogen greater than or equal to 100 mg/dl indicate adequate procoagulant activity for hemostasis in patients without underlying bleeding disorders. International Normalization Ratio 1.3(H) 0.9 - 1.1 CERNER MILLENNIUM Blood specimen (specimen) 02/10/2014 2:40 AM EDT 02/10/2014 2:54 AM EDT Narrative Resulting Agency Comment Spec In Lab Misyt De Guzman MD HEMATOLOGY ORDERABL ES Performing Organization Address [facility]/State/ZIP Co de Phone Number CERWALDO MURPHYStarForce TechnologiesIUM * APTT (02/10/2014 2:40 AM EDT) Partial [...] (with Diff) (02/10/2014 2:40 AM EDT) Pathologist [facility] White Blood Cell 10.5(H) 4.0 - 10.0 [...] Metabolic Panel (non-fasting) (02/10/2014 2:40 AM EDT) [facility] Glucose 142 60 - 199 mg/dL CERNER MILLENNIUM Comment:Diabetes: >=200 mg/d L plus symptoms Blood Urea Nitrogen 26(H) 10 - 20 mg/dL CERNER MILLENNIUM Creatinine 1.57(H) 0.80 - 1.50 mg/dL CERNER MILLENNIUM Comment: result rechecked- llu Please note that the pediatric reference intervals supplied above were not validated at [facility]. Results from pediatric patients should be interpreted [...] 153 60 - 199 mg/dL [facility] Comment: Supplemental ranges: <110 mg/dL before meals <200 mg/dL all other times of the day Blood specimen (specimen) 02/09/2014 11:39 PM EDT 02/09/2014 11:39 PM EDT Misty De Guzman MD POINT OF CARE TEST ORDERABLES Performing Organization Address City/[facility] Co de Phone Number [facility] * EKG 12 Lead (02/09/2014 10:11 PM EDT) Ventricular rate 130 BPM MUSE SYSTEM Atrial Rate 86 BPM MUSE SYSTEM QRS Duration 76 ms MUSE SYSTEM Q-T Interval 332 ms MUSE SYSTEM QTC Calculated (Bezet) 488 ms MUSE SYSTEM Calculated R [place] 47 degrees MUSE SYSTEM Calculated T [place] 35 degrees MUSE SYSTEM INTERPRETATION Atrial fibrillation with rapid ventricular response Low voltage QRS Abnormal ECG When compared with ECG of 18-NOV-2013 13:19, No significant change was found Confirmed by MD Darío, Andrez ([id number]) on 02/10/2014 11:18:33 PM MUSE SYSTEM 02/09/2014 10:1 1 PM EDT 02/10/2014 11:18 PM EDT Misty De Guzman MD ECG ORDERABLES Performing Organization Address City/[facility]/ZIP Co de Phone Number MUSE SYSTEM * POCT Glucose (02/09/2014 10:03 PM EDT) Glucose, POC 115 60 - 199 mg/dL [facility] Comment: Supplemental ranges: <110 mg/dL before meals [...] MD HEMATOLOGY ORDERABL ES Performing Organization Address City/[facility] Co de Phone Number DERICK [...] OF CARE TEST ORDERABLES Performing Organization Address City/[facility]/ZIP Co de Phone Number CERWALDO MURPHYENNIUM [...] MD HEMATOLOGY ORDERABL ES Performing Organization Address City/[facility]/ZIP Co de Phone Number CERWALDO MURPHYENNIUM * Antibody screen (02/09/2014 5:05 PM EDT) Ab Screen Interp Negative CERNER JEFFREYENNIUM Expires at [id number] on: [id number] CERNER MILLENNIUM Blood specimen (specimen) 02/09/2014 5:05 PM EDT 02/09/2014 5:14 PM EDT Narrative Resulting Agency Comment Spec In Lab Misty De Guzman MD BLOOD BANK LAB ORDNigel GRECO Performing Organization Address City/[facility]/ZIP Co de Phone Number CERWALDO MURPHYENNIUM * ABO/Rh Typing (02/09/2014 5:05 PM EDT) ABORH Type A Pos CERNER MILLENNIUM Blood specimen (specimen) 02/09/2014 5:05 PM EDT 02/09/2014 5:14 PM EDT Narrative Resulting Agency Comment Spec In Lab Misty De Guzman MD BLOOD BANK LAB ORDNigel GRECO Performing Organization Address City/[facility]/ZIP Co de Phone Number CERWALDO MURPHYENNIUM * (ABNORMAL) Basic Metabolic Panel (non-fasting) (02/09/2014 5:05 PM EDT) [facility] Glucose 144 60 - 199 mg/dL CERNER MILLENNIUM Comment:Diabetes: >=200 mg/d L plus symptoms Blood Urea Nitrogen 30(H) 10 - 20 mg/dL CERNER MILLENNIUM Comment:result rechecked- MT F Creatinine 2.96(H) 0.80 - 1.50 mg/dL CERNER MILLENNIUM Comment: result rechecked- MTF Please note that the pediatric reference intervals supplied above were not validated at [facility]. Results from pediatric patients should be interpreted [...] MD CHEMISTRY ORDERABLE S Performing Organization Address [facility] Co de Phone Number DERICK [...] MD HEMATOLOGY ORDERABL ES Performing Organization Address [facility] de Phone Number DERICK KRAFTIUM * (ABNORMAL) Prothrombin Time (02/09/2014 5:05 PM EDT) Prothrombin Time 16.3(H) 12.0 - 15.0 sec CERWALDO MILLENNIUM Comment: [facility] Transfusion Committee Guidelines: INR less than 2.0, [...] MD HEMATOLOGY ORDERABL ES Performing Organization Address [facility] Co de Phone Number CERWALDO [...] MD HEMATOLOGY ORDERABL ES Performing Organization Address [facility] Co de Phone Number DERICK MURPHY * POCT Glucose (02/09/2014 5:05 PM EDT) [facility] Signature Glucose, POC 132 60 - 199 mg/dL CERWALDO MILLENNIUM Comment: Supplemental ranges: <110 mg/dL before meals <200 mg/dL all other times of the day Blood specimen (specimen) 02/09/2014 5:05 PM EDT 02/09/2014 5:05 PM EDT Misty De Guzman MD POINT OF CARE TEST ORDERABLES Performing Organization Address [facility] de Phone Number DERICK MURPHY * XR Fluoro Upper GI Small Bowel (02/09/2014 3:50 PM EDT) Anatomical Region Laterality Modality N/A Radiographic Sia ging 02/09/2014 3:50 PM EDT Narrative 02/10/2014 12:05 PM EDT Examination UGI W/SMALL BOWEL FOLLOW THROU Clinical History s/p gastric bypass, eval GJ and JJ anastomoses Comparison None Technique Child Care Associate views of the abdomen. Oral administration of [...] GJ and JJ anastomoses Comparison None Technique Child Care Associate views of the abdomen. Oral administration of [...] Glucose, POC 162 60 - 199 mg/dL [facility] YesWeAdIUM Comment: Supplemental ranges: <110 mg/dL before meals <200 mg/dL all other times of the day Blood specimen (specimen) 02/09/2014 11:56 AM EDT 02/09/2014 11:56 AM EDT Misty De Guzman MD POINT OF CARE TEST ORDERABLES [facility] [employer] Identity SoftwareCARONDELET ST. JOSEPH'S HOSPITALIUM * POCT Glucose (02/09/2014 7:19 AM EDT) Glucose, POC 182 60 - 199 mg/dL [facility] [employer] Comment: Supplemental ranges: <110 mg/dL before meals <200 mg/dL all other times of the day Blood specimen (specimen) 02/09/2014 7:19 AM EDT 02/09/2014 7:19 AM EDT Misty De Guzman MD POINT OF CARE TEST ORDERABLES [facility] [employer] Identity SoftwareCARONDELET ST. JOSEPH'[facility] HOSPITALIUM * POCT Glucose (02/09/2014 4:53 AM EDT) Glucose, POC 159 60 - 199 mg/dL [facility] [employer] SoftwareENNIUM Comment: Supplemental ranges: <110 mg/dL before meals <200 mg/dL all other times of the day Blood specimen (specimen) 02/09/2014 4:53 AM EDT 02/09/2014 4:53 AM EDT Misty De Guzman MD POINT OF CARE TEST ORDERABLES Performing Organization Address City/State/[facility] Co de Phone Number CERNER [...] MD HEMATOLOGY ORDNigel GRECO Performing Organization Address City/[facility]/ZIP Co de Phone Number [facility] JEFFREYCARONDELET ST. JOSEPH'S HOSPITALIUM * Scan, Peripheral Blood (02/09/2014 4:37 AM EDT) Plat estimate Normal [facility] RBC Morphology Abnormal CERNE R MILLENNIUM Ovalocytes 1-5 /HPF [facility] Blood specimen (specimen) 02/09/2014 4:37 AM EDT 02/09/2014 5:07 AM EDT Narrative Resulting Agency Comment Spec In Lab Homero Gonzales MD HEMATOLOGY ORDE ANGUS Performing Organization Address [facility]/ZIP Co de Phone Number [facility] * Phosphorus (02/09/2014 4:37 AM EDT) Pathologist [facility] Phosphorus 4.5 2.5 - 4.5 mg/dL [facility] Blood specimen (specimen) 02/09/2014 4:37 AM EDT 02/09/2014 5:07 AM EDT Narrative Resulting Agency Comment Spec In Lab Homero Gonzales MD CHEMISTRY ORDER RICACRDO Performing Organization Address [facility] Co de Phone Number [facility] * Magnesium (02/09/2014 4:37 AM EDT) Pathologist [facility] Magnesium 0.75 0.69 - 1.07 mmol/L [facility] Blood specimen (specimen) 02/09/2014 4:37 AM EDT 02/09/2014 5:07 AM EDT Narrative Resulting Agency Comment Spec In Lab Homero Gonzales MD CHEMISTRY ORDER RICCARDO Performing Organization Address [facility] Co de Phone Number [facility] * (ABNORMAL) Glucose, fasting (02/09/2014 4:37 AM EDT) Glucose Fasting 176(H) 65 - 99 mg/dL [facility] Comment: ?Fasting* Glucose Interpretive Criteria Normal [...] of Diabetes Mellitus, Position Statement from the [place] [employer]. ??Diabetes Care, Volume 33, Supplement 1, Oct 2009 Blood specimen (specimen) 02/09/2014 4:37 AM EDT 02/09/2014 5:07 AM EDT Narrative Resulting Agency Comment Spec In Lab Homero Gonzales MD CHEMISTRY ORDER RICCARDO [facility] [employer] Identity SoftwareCARONDELET ST. JOSEPH'S HOSPITALPresidium Learning * Creatinine (02/09/2014 4:37 AM EDT) [facility] Signature Creatinine 1.13 0.80 - 1.50 mg/dL [facility] [employer] [facility] SoftwareCOMM[facility] Comment: Please note that the pediatric reference intervals supplied above were not validated at [facility]. Results from pediatric patients should be interpreted in conjunction to the patient's age, height and muscle mass. Est Glomerular Filtration Rate >60 >=60 [facility] YesWeAdFORMERLY [facility] Comment: This estimated GFR (eGFR) value was [...] Electrolytes panel (02/09/2014 4:37 AM EDT) Pathologist [facility] Sodium 139 135 - 145 mmol/L CERNER [...] Volume 9.9 9.0 - 12.0 fL CERBANNER MILLENNIUM Blood specimen (specimen) 02/09/2014 4:37 AM EDT 02/09/2014 5:07 AM EDT Narrative Resulting Agency Comment Spec In Lab Homero Gonzales MD HEMATOLOGY SANDY GRECO [facility] * POCT Glucose (02/09/2014 12:26 AM EDT) Glucose, POC 165 60 - 199 mg/dL [facility] Comment: Supplemental ranges: <110 mg/dL before meals <200 mg/dL all other times of the day Blood specimen (specimen) 02/09/2014 12:26 AM EDT 02/09/2014 12:26 AM EDT Misty De Guzman MD POINT OF CARE TEST ORDERABLES [facility] * POCT Glucose (02/08/2014 7:01 PM EDT) Glucose, POC 152 60 - 199 mg/dL [facility] Comment: Supplemental ranges: <110 mg/dL before meals <200 mg/dL all other times of the day Blood specimen (specimen) 02/08/2014 7:01 PM EDT 02/08/2014 7:01 PM EDT Misty De Guzman MD POINT OF CARE TEST ORDERABLES Performing Organization Address [facility] Co de Phone Number [facility] JEFFREYCARONDELET ST. JOSEPH'S HOSPITALIUM * POCT Glucose (02/08/2014 3:23 PM EDT) Glucose, POC 175 60 - 199 mg/dL [facility] Comment: Supplemental ranges: <110 mg/dL before meals <200 mg/dL all other times of the day Blood specimen (specimen) 02/08/2014 3:23 PM EDT 02/08/2014 3:23 PM EDT Misty De Guzman MD POINT OF CARE TEST ORDERABLES Performing Organization Address [facility] Phone Number [facility] * POCT Glucose (02/08/2014 9:29 AM EDT) Glucose, POC 133 60 - 199 mg/dL [facility] Comment: Supplemental ranges: <110 mg/dL before meals <200 mg/dL all other times of the day Blood specimen (specimen) 02/08/2014 9:29 AM EDT 02/08/2014 9:29 AM EDT Misty De Guzman MD POINT OF CARE TEST ORDERABLES Performing Organization Address [facility] Co de Phone Number [facility]YCOMM[facility] * Prothrombin Time (02/08/2014 8:34 AM EDT) Prothrombin Time 15.0 12.0 - 15.0 sec [facility] Comment: [facility] Transfusion Committee Guidelines: INR less than 2.0, PTT less than OR equal to 43.5 seconds, or Fibrinogen greater than or equal to 100 mg/dl indicate adequate procoagulant activity for hemostasis in patients without underlying bleeding disorders. International Normalization Ratio 1.1 0.9 - 1.1 [facility] PHOENIXWALDO MILLENNIUM Blood specimen (specimen) 02/08/2014 8:34 AM [...] EDT 40 mg HYDROmorphone (DILAUDID) 1 mg/mL WINDOW AND SIDING CRAFTSMAN 30 mL Intravenous, WINDOW AND SIDING CRAFTSMAN ONLY, Starting on Sat02/08/14 at 1545, Until [...] Provider: Demi Jung RN)2017 (Given - Provider: aBri Duckworth, FRACISCO) 0839 (Given - Provider: Ora [...] Bari Duckworth RN) HYDROmorphone (DILAUDID) 1 mg/mL WINDOW AND SIDING CRAFTSMAN 30 mL (CANCELED) Intravenous, WINDOW AND SIDING CRAFTSMAN ONLY, Starting on 02/08/14 at 1545, Until [...] MD) documented in this encounter Care Teams Cycle Consultant Relationship Specialty Start Date End Date Manolo Castro MD [address] [place] [address] PCP - General 05/14/12 04/21/17 documented as of this encounter
--- OUTSIDE RECORDS SUMMARY | 2024-08-05 21:27 | XMS_ITS | Encounter Summary ---
Author Organization [facility] [place] [address] Care Team Providers Care Core Drier Name Role Phone Manolo Castro MD Primary Care Provider [phone] Encounter Details Date Type Department Care Team (Late st Contact Info) Description 02/08/2014 Notes [place] [address] Narda Allen, DRY CELL ASSEMBLY SUPERVISOR [facility] [place] [address] Social History Tobacco Use Types Packs/Day Years [...] EDT Preop Lab done on 02/04/14 at [facility] received: WBC 6.18 Hg 13.4 Hct 41 plt 221. CMP WNL x BUN 27. Cr 1.2 GFR> 60 documented in this encounter Plan of Treatment Not on file documented as of this encounter Visit Diagnoses Not on filedocumented in this encounter Care Teams Core Drier Relationship Specialty Start Date End Date Manolo Castro MD [address] [place] [address] PCP - General 05/14/12 04/21/17 documented as of this encounter
--- OUTSIDE RECORDS SUMMARY | 2024-08-05 21:27 | XMS_ITS | Encounter Summary ---
Author Organization [facility] [place] [address] Care Team Providers Care Hand Lens Polisher Name Role Phone Manolo Castro MD Primary Care Provider [phone] Reason for Visit * Reason Comments Patient Education Bariatric Surgery Pr ogram preoperative class Encounter Details Date Type Department Care Team ([facility] Contact Info) Description 01/28/2014 12:30 PM EDT Office [place] [address] Narda Allen, J2EE DEVELOPER [facility] [place] [address] Elevated TSH; Morbid obesity; Hypertension; Type 2 [...] EDT BARIATRIC SURGERY DISCHARGE INFORMATION CONTACT INFORMATION: [phone] Surgeons: Cyndi Lujan Laycock and [place] [phone] Roll Off Driver: [phone] (Saturday through Saturday, 8:00 AM -5:00 PM) Dietitian: [phone] Non-business hours: [phone], ask for general surgeon planning division superintendent FOR EMERGENCIES: CALL 911 (trouble breathing, chest [...] Follow up with primary care doctor or operation specialist in 1-2 weeks. Bring meter to [...] and post operative instructions included in the [facility] Bariatric Surgery Program Education Handbook.One hour of [...] and post operative instructions included in the [facility] Bariatric Surgery Program Education Handbook.The one hour [...] He previously attended a Introduction to the [facility] Bariatric Surgery Program seminar,a two hour meeting that provides a program overview as well as expectations. The [facility] Bariatric Surgery Program Educational seminar requirement (3 seminars with post-testing) has been met. The [facility]SP Educational Handbook was provided at visit #1. 2. Pre-operative programmatic evaluations have been done, as noted in previous pathway review. 3. Bariatric Surgery Program evaluations with RD and COMMERCIAL HORTICULTURE INSTRUCTOR have taken place, as noted in previous [...] surgery and post-op routine care/ locations: Admissions/SDP/PACU///2 [place] units ?? medications that increase the risk [...] (pediatric) documented in this encounter Care Teams Hand Lens Polisher Relationship Specialty Start Date End Date Manolo Castro MD [address] [place] [address] PCP - General 05/14/12 04/21/17 documented as of this encounter
--- OUTSIDE RECORDS SUMMARY | 2024-08-05 21:27 | XMS_ITS | Encounter Summary ---
Author Organization [facility] [place] [place] [address] Care Team Providers Care Job Developer Name Role Phone Manolo Castro MD Primary Care Provider [phone] Encounter Details Date Type Department Care Team (Late st Contact Info) Description 02/08/2014 10:28 AM EDT - 02/08/2014 3:56 PM EDT Surgery [place] [address] Misty De Guzman MD [facility] [place] [address] LAPAROSCOPIC REVISION OF DELROY FUNDOPLASTY (WRVU 48.75) [...] EDT BARIATRIC SURGERY DISCHARGE INFORMATION CONTACT INFORMATION: [phone] Surgeons: Dr. Martinez, Margarette Hanna and [place] [phone] Shoulder Boner: [phone] (Saturday through Saturday, 8:00 AM -5:00 PM) Dietitian: [phone] Non-business hours: [phone], ask for general surgeon operations research manager FOR EMERGENCIES: CALL [phone] (trouble breathing, [...] after surgery. This can be done at [facility] or via Primary Care Provider (PCP). Do [...] 200 on more than 3 rechecks, [facility] or [facility] specialist for [...] Follow up with primary care doctor or acute care clinical nurse specialist in 1-2 weeks. Bring meter to [...] Provider Department Center 03/02/2014 3:00 PM Bariatric, Charge Account Identification Clerk Tor Surg [facility] 03/02/2014 3:40 PM [...] 10:09 AM EDT Care Management/ CRC Pager# [phone]/ Assessment and Initial discharge planning S: I [...] insurance. [facility] Patient is POD# 3 laparoscopic Keysha-en-Y gastric [...] q4hr prn. 99% on 2liters oxygen via process description writer this morning. A: Patient progressing post-op. Patient [...] is stable and Pain well controlled DC COMPLIANCE AND CONTROL ANALYST and start Oxycodone liquid for pain controll [...] Office of Care Management (OCM) / Clinical Engagement Quality Consultant (CRC)/ Initial Assessment Discussed patient with Provider Team and in multidisciplinary discharge-planning rounds. Reviewed record; patient off unit for procedure. Introduced/reviewed CRC role and services accepted. REASON for HOSPITALIZATION:s/p keysha-en-y gastric bypass NPO; COMPLIANCE AND CONTROL ANALYST; IVF's;UGI/SBF pending;Lovenox (on Coumadin for AF) PMH Past Medical History Diagnosis Date ??? Blood disorder ??? Circulatory disease ??? 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 PRIMARY CARE PHYSICIAN: MANOLO CASTRO MD [address] / [facility] [address] POTENTIAL DISCHARGE NEEDS: none anticipated PATIENT/FAMILY EDUCATION NEEDS:per discharge summary ANTICIPATED BARRIERS TO DISCHARGE:none TRANSPORTATION @ D/C: PLAN: CRC will continue to monitor progress, follow for continuity of care and assist with discharge planning while hospitalized KENYATTA SANDS RN CRC for Melba Elmore RN CRC pager [phone] . * Ricky Trotter MD - 02/09/2014 [...] pain and nausea at this time. Using COMPLIANCE AND CONTROL ANALYST appropriately, patient very drowsy but easily woken. Lap sites CDI. HR irreg. Will continue to monitor. * Radha Sanchez RN - 02/08/2014 4:49 PM EDT Report to Claire 4w. Pt sleepy, easily arousable. States he is comfortable. Gave radiation control specialist with instruction. documented in this encounter H&P [...] currently had full participation in the [facility] Bariatric Surgery Program and meets NIH criteria [...] majority of our 40 minutes today in [id number] conversation regarding various treatment options for obesity [...] 02/13/2014 12:56 PM EDTAssociated Order(s): SCAN DOC: CHAR HOUSE SUPERVISOR documented in this encounter Miscellaneous Notes * [...] part of your care. Bariatric Surgery - [phone]: Follow-up with Dr. De Guzman PCP: MANOLO CASTRO MD, . Please follow-up with your PCP in 1-2 weeks or sooner as needed. Scheduled Appointments: The following appointments have been scheduled on your behalf: Future Appointments and Orders Future Appointments: Provider: Department: Dept Phone: Center: 03/02/2014 3:00 PM Charge Account Identification Clerk Bariatric General Surgery [phone] [facility] 03/02/2014 3:40 PM Misty De Guzman MD General Surgery [phone] [facility] Outpatient Services/Studies: No discharge procedures on file. Instructions Given to Patient at Discharge: Provider Instructions BARIATRIC SURGERY DISCHARGE INFORMATION CONTACT INFORMATION: [phone] Surgeons: Cyndi Lujan Laycock and [facility] [phone] Shoulder Boner: [phone] (Saturday through Saturday, 8:00 AM -5:00 PM) Dietitian: [phone] Non-business hours: [phone], ask for general surgeon operations research manager FOR EMERGENCIES: CALL 911 (trouble breathing, [...] had open gastric bypass and have kellie: [place] should be removed 10 - 12 days after surgery. This can be done at [facility] or via Primary Care Provider (PCP). Do [...] 200 on more than 3 rechecks, [facility] or diabetic specialist for [...] Follow up with primary care doctor or acute care clinical nurse specialist in 1-2 weeks. Bring meter to [...] Provider Department Center 03/02/2014 3:00 PM Bariatric, Charge Account Identification Clerk Leb [facility]urg [facility] 03/02/2014 3:40 PM Misty De Guzman MD [facility] General Instructions None Future Appointments and Orders Future Appointments: Provider: Department: Dept Phone: Center: 03/02/2014 3:00 PM Charge Account Identification Clerk Bariatric General Surgery [phone] [facility] 03/02/2014 3:40 PM Misty De Guzman MD General Surgery [phone] [facility] Call your doctor if: Please [...] managed by the Bariatric Surgery Team at [facility]. If you have any questions or concerns, please feel free to contact us. Provider Contact Information: General Surgery Clinic: [facility] (after business hours): CC: MANOLO CASTRO MD [...] flowsheet for pain assessment. Pt with Dilaudid COMPLIANCE AND CONTROL ANALYST 0.3/15/5 pt understands use, not utilized overnight. [...] pain. Pt stating good relief with Dilaudid COMPLIANCE AND CONTROL ANALYST. Pt reporting no nausea,SOB or chest pain. Assessment as documented. Will continue to monitor. * Op Note - Misty De Guzman MD - 02/10/2014 2:56 PM EDT [facility] Operative Note Patient Name: Eugene Rueda : [id number] MR#: [id number] Case Date: 02/10/2014 Surgeon: Surgeon(s) and Role: * Misty De Guzman MD - Primary * Ricky Trotter MD - Resident-Shade Cloth Finisher * Homero Hernandez MD - [facility] Preoperative diagnosis: post-op bleeding s/p rnygb [...] Operative Note Patient Name: Eugene Rueda : [id number] MR#: [id number] Case Date: 02/10/2014 Surgeon: Surgeon(s) and Role: * Misty De Guzman MD - Primary * Ricky Trotter MD - Resident-Shade Cloth Finisher * Homero Hernandez MD - Resident-Shade Cloth Finisher Preoperative diagnosis: post-op bleeding s/p rnygb Postoperative [...] Operative Note Patient Name: Eugene Rueda : [id number] MR#: [id number] Case Date: 02/10/2014 Surgeon: Surgeon(s) and Role: * Misty De Guzman MD - Primary * Ricky Trotter MD - Resident-Shade Cloth Finisher * Homero Hernandez MD - Resident-Shade Cloth Finisher Preoperative diagnosis: post-op bleeding s/p rnygb Postoperative diagnosis: post-op bleeding s/p rnygb Procedure(s): LAPAROSCOPY, DIAGNOSTIC, ABDOMEN Anesthesia: General Findings: dense clot under liver and diaphragm, no site of active bleeding Complications: none Fluids: 1300cc Estimated Blood Loss: 500cc Drains: 10 Tunisian MONICA drain Disposition: awakened from anesthesia, extubated [...] Operative Note Patient Name: Eugene Rueda : [id number] MR#: [id number] Case Date: 02/08/2014 Surgeon: Surgeon(s) and Role: [...] Guzman MD - 02/08/2014 9:37 AM EDT [facility] Operative Note Patient Name: Eugene Rueda : [id number] MR#: [id number] Case Date: 02/08/2014 Surgeon: Surgeon(s) and Role: [...] engaged with the bariatric surgery program at [facility]. He has multiple weight-related comorbidities, he meets NIH criteria for weight loss surgery, and he has had full participation in the [facility] bariatric surgery program. Following review of his [...] posteriorly and encircle the esophagus with a [place] drain. This was held in place using [...] all other items from the esophagus. The Bertrand 60 blue load was angled horizontally at [...] and the small-bowel serosa, and using an Bertrand 60 with a white load the jejunum [...] fashioned using a single firing of the Bertrand 60 with a white load. That enterotomy [...] limb, and a partial firing of the Bertrand 60 blue load at 30 mm was formed for the gastrojejunostomy. A 30-Tunisian bougie was then passed by Anesthesia down [...] Procedure Name Priority Date/Time Associated Diagnosis Comments CHAR HOUSE SUPERVISOR SCAN 02/13/2014 12:56 PM EDT POCT GLUCOSE [...] in this encounter Results * SCAN DOC: CHAR HOUSE SUPERVISOR (02/13/2014 12:56 PM EDT) Anatomical Region Laterality [...] Glucose, POC 134 60 - 199 mg/dL [facility] Comment: Supplemental ranges: <110 mg/dL before meals <200 mg/dL all other times of the day Blood specimen (specimen) 02/12/2014 7:04 AM EDT 02/12/2014 7:04 AM EDT Misty De Guzman MD POINT OF CARE TEST ORDERABLES DERICK KRAFTIUM * (ABNORMAL) Differential, Automated (02/12/2014 5:32 AM EDT) Neutrophil % 70.2 34.0 - 71.0 % [facility] Neutrophil Absolute 5.11 1.50 - 6.30 [...] Misty De Guzman MD [facility]ATOLOGY ORDERABL ES [facility] * (ABNORMAL) Basic Metabolic Panel (non-fasting) (02/12/2014 5:32 AM EDT) [facility] Glucose 131 60 - 199 mg/dL CERNER MILLENNIUM Comment:Diabetes: >=200 mg/d L plus symptoms Blood Urea Nitrogen 16 10 - 20 mg/dL CERNER MILLENNIUM Creatinine 0.67(L) 0.80 - 1.50 mg/dL CERNER MILLENNIUM Comment: Please note that the pediatric reference intervals supplied above were not validated at [facility]. Results from pediatric patients should be interpreted [...] Platelet Volume 9.3 9.0 - 12.0 fL [facility] Blood specimen (specimen) 02/12/2014 5:32 AM EDT 02/12/2014 5:58 AM EDT Narrative Resulting Agency Comment Spec In Lab Misty De Guzman MD HEMATOLOGY ORDERABL ES Performing Organization Address [facility] Phone Number [facility] * POCT Glucose (02/12/2014 3:50 AM EDT) Glucose, POC 123 60 - 199 mg/dL [facility] Comment: Supplemental ranges: <110 mg/dL before meals <200 mg/dL all other times of the day Blood specimen (specimen) 02/12/2014 3:50 AM EDT 02/12/2014 3:50 AM EDT Misty De Guzman MD POINT OF CARE TEST ORDERABLES Performing Organization Address [facility] Phone Number [facility] * POCT Glucose (02/11/2014 11:26 PM EDT) Glucose, POC 178 60 - 199 mg/dL [facility] Comment: Supplemental ranges: <110 mg/dL before meals <200 mg/dL all other times of the day Blood specimen (specimen) 02/11/2014 11:26 PM EDT 02/11/2014 11:26 PM EDT Misty De Guzman MD POINT OF CARE TEST ORDERABLES Performing Organization Address [facility] Phone Number [facility] * POCT Glucose (02/11/2014 7:20 PM EDT) Glucose, POC 140 60 - 199 mg/dL [facility] Comment: Supplemental ranges: <110 mg/dL before meals <200 mg/dL all other times of the day Blood specimen (specimen) 02/11/2014 7:20 PM EDT 02/11/2014 7:20 PM EDT Misty De Guzman MD POINT OF CARE TEST ORDERABLES Performing Organization Address [facility] Co de Phone Number [facility] * POCT Glucose (02/11/2014 4:15 PM EDT) Glucose, POC 149 60 - 199 mg/dL [facility] Comment: Supplemental ranges: <110 mg/dL before meals <200 mg/dL all other times of the day Blood specimen (specimen) 02/11/2014 4:15 PM EDT 02/11/2014 4:15 PM EDT Misty De Guzman MD POINT OF CARE TEST ORDERABLES Performing Organization Address [facility] Phone Number [facility] * POCT Glucose (02/11/2014 11:45 AM EDT) Glucose, POC 157 60 - 199 mg/dL [facility] Comment: Supplemental ranges: <110 mg/dL before meals <200 mg/dL all other times of the day Blood specimen (specimen) 02/11/2014 11:45 AM EDT 02/11/2014 11:45 AM EDT Misty De Guzman MD POINT OF CARE TEST ORDERABLES Performing Organization Address [facility] de Phone Number [facility]PHYAB[facility] * POCT Glucose (02/11/2014 6:56 AM EDT) Glucose, POC 158 60 - 199 mg/dL [facility] Comment: Supplemental ranges: <110 mg/dL before meals <200 mg/dL all other times of the day Blood specimen (specimen) 02/11/2014 6:56 AM EDT 02/11/2014 6:56 AM EDT Misty De Guzman MD POINT OF CARE TEST ORDERABLES Performing Organization Address [facility] Co de Phone Number [facility] * (ABNORMAL) Differential, Automated (02/11/2014 4:46 AM [...] Metabolic Panel (non-fasting) (02/11/2014 4:46 AM EDT) [facility] Glucose 152 60 - 199 mg/dL CERNER MILLENNIUM Comment:Diabetes: >=200 mg/d L plus symptoms Blood Urea Nitrogen 17 10 - 20 mg/dL CERN[facility] MILLENNIUM Creatinine 0.90 0.80 - 1.50 mg/dL CERNER MILLENNIUM Comment: Please note that the pediatric reference intervals supplied above were not validated at [facility]. Results from pediatric patients should be interpreted [...] MD CHEMISTRY ORDERABLE S Performing Organization Address City/[facility] Co de Phone Number [facility] * POCT Glucose (02/11/2014 4:35 AM EDT) Glucose, POC 151 60 - 199 mg/dL [facility] Comment: Supplemental ranges: <110 mg/dL before meals <200 mg/dL all other times of the day Blood specimen (specimen) 02/11/2014 4:35 AM EDT 02/11/2014 4:35 AM EDT Misty De Guzman MD POINT OF CARE TEST ORDERABLES Performing Organization Address [facility] Co de Phone Number [facility] * POCT Glucose (02/10/2014 11:29 PM EDT) Glucose, POC 146 60 - 199 mg/dL [facility] Comment: Supplemental ranges: <110 mg/dL before meals <200 mg/dL all other times of the day Blood specimen (specimen) 02/10/2014 11:29 PM EDT 02/10/2014 11:29 PM EDT Misty De Guzman MD POINT OF CARE TEST ORDERABLES Performing Organization Address [facility] de Phone Number [facility] * POCT Glucose (02/10/2014 7:58 PM EDT) Glucose, POC 112 60 - 199 mg/dL [facility] Comment: Supplemental ranges: <110 mg/dL before meals <200 mg/dL all other times of the day Blood specimen (specimen) 02/10/2014 7:58 PM EDT 02/10/2014 7:58 PM EDT Misty De Guzman MD POINT OF CARE TEST ORDERABLES Performing Organization Address [facility] Phone Number [facility]WALDO KRAFTI[facility] * POCT Glucose (02/10/2014 4:06 PM EDT) Glucose, POC 141 60 - 199 mg/dL [facility] Comment: Supplemental ranges: <110 mg/dL before meals <200 mg/dL all other times of the day Blood specimen (specimen) 02/10/2014 4:06 PM EDT 02/10/2014 4:06 PM EDT Misty De Guzman MD POINT OF CARE TEST ORDERABLES Performing Organization Address [facility] de Phone Number [facility] * (ABNORMAL) Differential, Automated (02/10/2014 3:50 PM EDT) Neutrophil % 82.5(H) 34.0 - 71.0 % [facility] MILLENNIUM Neutrophil Absolute 9.11(H) 1.50 - 6.30 [...] Misty De Guzman MD HEMATOLOGY ORDERABL ES [facility] * (ABNORMAL) CBC (with Diff) (02/10/2014 [...] Glucose, POC 160 60 - 199 mg/dL [facility]PHYAB[facility] Comment: Supplemental ranges: <110 mg/dL before meals <200 mg/dL all other times of the day Blood specimen (specimen) 02/10/2014 12:34 PM EDT 02/10/2014 12:34 PM EDT Misty De Guzman MD POINT OF CARE TEST ORDERABLES Performing Organization Address [facility]/ZIP Co de Phone Number [facility] * (ABNORMAL) Prothrombin Time (02/10/2014 7:33 AM EDT) Prothrombin Time 17.0(H) 12.0 - 15.0 sec DERICK KRAFTIUM Comment: [facility] Transfusion Committee Guidelines: INR less than 2.0, [...] MD HEMATOLOGY ORDERABL ES Performing Organization Address [facility] de Phone Number CERNER MILLENNIUM * Magnesium (02/10/2014 7:33 AM EDT) Magnesium 0.79 0.69 - 1.07 mmol/L CERNER MILLENNIUM Blood specimen (specimen) 02/10/2014 7:33 AM EDT 02/10/2014 7:39 AM EDT Narrative Resulting Agency Comment Spec In Lab Misty De Guzman MD CHEMISTRY ORDERABLE S Performing Organization Address [facility] de Phone Number CERNER MILLENNIUM * (ABNORMAL) [...] MD HEMATOLOGY ORDERABL ES Performing Organization Address [facility] Co de Phone Number CERNER MILLENNIUM * POCT Glucose (02/10/2014 7:25 AM EDT) Glucose, POC 131 60 - 199 mg/dL [facility] Comment: Supplemental ranges: <110 mg/dL before meals <200 mg/dL all other times of the day Blood specimen (specimen) 02/10/2014 7:25 AM EDT 02/10/2014 7:25 AM EDT Misty De Guzman MD POINT OF CARE TEST ORDERABLES Performing Organization Address [facility] Co de Phone Number DERICK MURPHY * POCT Glucose (02/10/2014 4:11 AM EDT) Glucose, POC 144 60 - 199 mg/dL [facility] Comment: Supplemental ranges: <110 mg/dL before meals <200 mg/dL all other times of the day Blood specimen (specimen) 02/10/2014 4:11 AM EDT 02/10/2014 4:11 AM EDT Misty De Guzman MD POINT OF CARE TEST ORDERABLES Performing Organization Address [facility] Co de Phone Number DERICK MURPHY * (ABNORMAL) Differential, Automated (02/10/2014 2:40 AM EDT) Neutrophil % 76.9(H) 34.0 - 71.0 % [facility] Neutrophil Absolute 8.07(H) 1.50 - 6.30 [...] MD HEMATOLOGY ORDERABL ES Performing Organization Address [facility] de Phone Number DERICK MURPHY * (ABNORMAL) Prothrombin Time (02/10/2014 2:40 AM EDT) Prothrombin Time 16.4(H) 12.0 - 15.0 sec CERNER MILLENNIUM Comment: [facility] Transfusion Committee Guidelines: INR less than 2.0, [...] MD HEMATOLOGY ORDERABL ES Performing Organization Address [facility] Co de Phone Number [...] above were not validated at [facility]. Results from pediatric patients should be interpreted [...] Glucose, POC 153 60 - 199 mg/dL [facility] Comment: Supplemental ranges: <110 mg/dL before meals <200 mg/dL all other times of the day Blood specimen (specimen) 02/09/2014 11:39 PM EDT 02/09/2014 11:39 PM EDT Misty De Guzman MD POINT OF CARE TEST ORDERABLES Performing Organization Address [facility] de Phone Number [facility] * EKG 12 Lead (02/09/2014 10:11 PM EDT) Ventricular rate 130 BPM MUSE SYSTEM Atrial Rate 86 BPM MUSE SYSTEM QRS Duration 76 ms MUSE SYSTEM Q-T Interval 332 ms MUSE SYSTEM QTC Calculated (Bezet) 488 ms MUSE SYSTEM Calculated R [place] 47 degrees MUSE SYSTEM Calculated T [place] 35 degrees MUSE SYSTEM INTERPRETATION Atrial fibrillation with rapid ventricular response Low voltage QRS Abnormal ECG When compared with ECG of 18-NOV-2013 13:19, No significant change was found Confirmed by MD Darío, Andrez ([id number]) on 02/10/2014 11:18:33 PM MUSE SYSTEM 02/09/2014 10:1 1 PM EDT 02/10/2014 11:18 PM EDT Misty De Guzman MD ECG ORDERABLES Performing Organization Address [facility] de Phone Number MUSE SYSTEM * POCT Glucose (02/09/2014 10:03 PM EDT) Glucose, POC 115 60 - 199 mg/dL [facility] Comment: Supplemental ranges: <110 mg/dL before meals <200 mg/dL all other times of the day Blood specimen (specimen) 02/09/2014 10:03 PM EDT 02/09/2014 10:03 PM EDT Misty De Guzman MD POINT OF CARE TEST ORDERABLES Performing Organization Address [facility] Co de Phone Number [facility] * (ABNORMAL) Hemogram (02/09/2014 9:00 PM EDT) [...] MD HEMATOLOGY ORDERABL ES Performing Organization Address [facility] de Phone Number CERNER MILLENNIUM * Creatinine, urine, random (02/09/2014 8:50 PM EDT) Creatinine, Urine 170 mg/dL CERNER MILLENNIUM Urine specimen (specimen) 02/09/2014 8:50 PM EDT 02/09/2014 9:50 PM EDT Narrative Resulting Agency Comment Spec In Lab Misty De Guzman MD URINE ORDERABLES [facility] MILL[facility] * Electrolytes, urine, random (02/09/2014 8:50 PM EDT) Sodium, Urine 34 mmol/L CERNER MILLENNIUM Potassium, Urine 56 mmol/L CERNER MILLENNIUM Chloride, Urine 22 mmol/L CERNER MILLENNIUM Urine specimen (specimen) 02/09/2014 8:50 PM EDT 02/09/2014 9:50 PM EDT Narrative Resulting Agency Comment Spec In Lab Misty De Guzman MD URINE ORDERABLES Performing Organization Address City/[facility]/ZIP Co de Phone Number [facility]ER JE[facility]RE[facility] * POCT Glucose (02/09/2014 7:21 PM EDT) Glucose, POC 116 60 - 199 mg/dL CERNER MILLENNIUM Comment: Supplemental ranges: <110 mg/dL before meals <200 mg/dL all other times of the day Blood specimen (specimen) 02/09/2014 7:21 PM EDT 02/09/2014 7:21 PM EDT Misty De Guzman MD POINT OF CARE TEST ORDERABLES Performing Organization Address City/[facility] Co de Phone Number [...] MD HEMATOLOGY ORDERABL ES Performing Organization Address [facility] Co de Phone Number DERICK KRAFTIUM * Antibody screen (02/09/2014 5:05 PM EDT) Ab Screen Interp Negative [facility] Expires at [id number] on: [id number] [facility] Blood specimen (specimen) 02/09/2014 5:05 PM EDT 02/09/2014 5:14 PM EDT Narrative Resulting Agency Comment Spec In Lab Misty De Guzman MD BLOOD BANK LAB ORDE ANGUS Performing Organization Address [facility] de Phone Number [facility] JEFFREY * ABO/Rh Typing (02/09/2014 5:05 PM EDT) ABORH Type A Pos CERWALDO MURPHYABRAZO [facility] Blood specimen (specimen) 02/09/2014 5:05 PM EDT 02/09/2014 5:14 PM EDT Narrative Resulting Agency Comment Spec In Lab Misty De Guzman MD BLOOD BANK LAB ORDE RAJIPOLY Performing Organization Address [facility]/ZIP Co de Phone Number [facility] * (ABNORMAL) Basic Metabolic Panel (non-fasting) (02/09/2014 [...] above were not validated at [facility]. Results from pediatric patients should be interpreted [...] MD HEMATOLOGY ORDERABL ES Performing Organization Address [facility] de Phone Number CERWALDO MURPHYENNIUM * (ABNORMAL) Prothrombin Time (02/09/2014 5:05 PM EDT) Prothrombin Time 16.3(H) 12.0 - 15.0 sec CERNER MILLENNIUM Comment: [facility] Transfusion Committee Guidelines: INR less than 2.0, [...] MD HEMATOLOGY ORDERABL ES Performing Organization Address [facility] Co de Phone Number [...] MD HEMATOLOGY ORDERABL ES Performing Organization Address [facility] Co de Phone Number DERICK MURPHY * POCT Glucose (02/09/2014 5:05 PM EDT) [facility] Signature Glucose, POC 132 60 - 199 mg/dL DERICK MURPHYENNIUM Comment: Supplemental ranges: <110 mg/dL before meals <200 mg/dL all other times of the day Blood specimen (specimen) 02/09/2014 5:05 PM EDT 02/09/2014 5:05 PM EDT Misty De Guzman MD POINT OF CARE TEST ORDERABLES Performing Organization Address [facility] Co de Phone Number DERICK MURPHY * XR Fluoro Upper GI Small Bowel (02/09/2014 3:50 PM EDT) Anatomical Region Laterality Modality N/A Radiographic Sia ging 02/09/2014 3:50 PM EDT Narrative 02/10/2014 12:05 PM EDT Examination UGI W/SMALL BOWEL FOLLOW THROU Clinical History s/p gastric bypass, eval GJ and JJ anastomoses Comparison None Technique Model Maker Fiberglass views of the abdomen. Oral administration of [...] GJ and JJ anastomoses Comparison None Techn[employer] Model [employer] Fiberglass views of the abdomen. Oral administration of [...] Glucose, POC 162 60 - 199 mg/dL [facility]Along[facility] Comment: Supplemental ranges: <110 mg/dL before meals <200 mg/dL all other times of the day Blood specimen (specimen) 02/09/2014 11:56 AM EDT 02/09/2014 11:56 AM EDT Misty De Guzman MD POINT OF CARE TEST ORDERABLES Performing Organization Address [facility] Co de Phone Number [facility] * POCT Glucose (02/09/2014 7:19 AM EDT) Glucose, POC 182 60 - 199 mg/dL [facility] Comment: Supplemental ranges: <110 mg/dL before meals <200 mg/dL all other times of the day Blood specimen (specimen) 02/09/2014 7:19 AM EDT 02/09/2014 7:19 AM EDT Misty De Guzman MD POINT OF CARE TEST ORDERABLES Performing Organization Address [facility] Co de Phone Number [facility] * POCT Glucose (02/09/2014 4:53 AM EDT) Glucose, POC 159 60 - 199 mg/dL [facility] Comment: Supplemental ranges: <110 mg/dL before meals [...] (02/09/2014 4:37 AM EDT) Plat estimate Normal [facility] RBC Morphology Abnormal CERNE R MILLENNIUM Ovalocytes 1-5 /HPF [facility] Blood specimen (specimen) 02/09/2014 4:37 AM EDT 02/09/2014 5:07 AM EDT Narrative Resulting Agency Comment Spec In Lab Homero Gonzales MD HEMATOLOGY ORDE RABLES [facility] * Phosphorus (02/09/2014 4:37 AM EDT) Phosphorus 4.5 2.5 - 4.5 mg/dL [facility] Blood specimen (specimen) 02/09/2014 4:37 AM EDT 02/09/2014 5:07 AM EDT Narrative Resulting Agency Comment Spec In Lab Homero Gonzales MD CHEMISTRY ORDER RICCARDO Performing Organization Address City/[facility] Co de Phone Number [facility] * Magnesium (02/09/2014 4:37 AM EDT) Pathologist [facility] Magnesium 0.75 0.69 - 1.07 mmol/L [facility] Blood specimen (specimen) 02/09/2014 4:37 AM EDT 02/09/2014 5:07 AM EDT Narrative Resulting Agency Comment Spec In Lab Homero Gonzales MD CHEMISTRY ORDER RICCARDO Performing Organization Address [facility]/ZIP Co de Phone Number [facility] * (ABNORMAL) Glucose, fasting (02/09/2014 4:37 AM EDT) Glucose Fasting 176(H) 65 - 99 mg/dL [facility] Comment: ?Fasting* Glucose Interpretive Criteria Normal ?65-99 [...] of Diabetes Mellitus, Position Statement from the [employer] Diabetes Association. ??Diabetes Care, Volume 33, Supplement 1, Oct 2009 Blood specimen (specimen) 02/09/2014 4:37 AM EDT 02/09/2014 5:07 AM EDT Narrative Resulting Agency Comment Spec In Lab Homero Gonzales MD CHEMISTRY ORDER RICCARDO Performing Organization Address [facility] Co de Phone Number [employer] * Creatinine (02/09/2014 4:37 AM EDT) [facility] Creatinine 1.13 0.80 - 1.50 mg/dL CERWALDO [facility] Comment: Please note that the pediatric reference intervals supplied above were not validated at [facility]. Results from pediatric patients should be interpreted in conjunction to the patient's age, height and muscle mass. Est Glomerular Filtration Rate >60 >=60 [facility] Comment: This estimated GFR (eGFR) value was [...] MD CHEMISTRY ORDER RICCARDO Performing Organization Address City/[facility] Co de Phone Number [employer] MILLENNIUM * BUN (02/09/2014 4:37 AM EDT) Blood Urea Nitrogen 18 10 - 20 mg/dL CERNER MILLENNIUM Blood specimen (specimen) 02/09/2014 4:37 AM EDT 02/09/2014 5:07 AM EDT Narrative Resulting Agency Comment Spec In Lab Homero Gonzales MD CHEMISTRY ORDER RICCARDO Performing Organization Address [facility] Co de Phone Number [...] MD CHEMISTRY ORDER RICCARDO Performing Organization Address City/[facility]/ZIP Co de Phone Number CERWALDO MURPHYENNIUM * (ABNORMAL) CBC (with Diff) (02/09/2014 4:37 AM EDT) White Blood Cell 12.8(H) 4.0 - 10.0 x10(3)/mc L CERNER MILLENNIUM Red Blood Cell 4.31(L) 4.63 - 6.08 x10(6)/mc L CERNER MILLENNIUM Hemoglobin 12.7(L) 13.7 - 17.5 gm/dL CERNER MILLENNIUM Hematocrit 38.6(L) 40.0 - 51.0 % [facility] MILLABRAZO [facility] Mean Cell Volume 89.6 79.0 - 92.0 fL [facility] MILLABRAZO [facility] Mean Cell Hemoglobin 29.5 25.6 - 32.2 pg [facility] Mean Cell Hemoglobin Concentration 32.9 32.0 - 36.5 gm/dL [facility] MILLENNIUM Platelet 249 145 - 370 x10(3)/mc L [facility] MILLENNIUM RDW Standard Deviation 46.6(H) 35.0 - 46.0 fL [facility] MILLENNIUM RDW coefficient of variation 14.2 10.9 - 14.4 % [facility] MILLABRAZO [facility] Mean Platelet Volume 9.9 9.0 - 12.0 fL [facility] Blood specimen (specimen) 02/09/2014 4:37 AM EDT 02/09/2014 5:07 AM EDT Narrative Resulting Agency Comment Spec In Lab Homero Gonzales MD HEMATOLOGY SANDY GRECO Performing Organization Address [facility] Co de Phone Number [facility] * POCT Glucose (02/09/2014 12:26 AM EDT) Glucose, POC 165 60 - 199 mg/dL [facility] Comment: Supplemental ranges: <110 mg/dL before meals <200 mg/dL all other times of the day Blood specimen (specimen) 02/09/2014 12:26 AM EDT 02/09/2014 12:26 AM EDT Misty De Guzman MD POINT OF CARE TEST ORDERABLES Performing Organization Address City/[facility] Co de Phone Number [facility] * POCT Glucose (02/08/2014 7:01 PM EDT) Glucose, POC 152 60 - 199 mg/dL [facility] Comment: Supplemental ranges: <110 mg/dL before meals <200 mg/dL all other times of the day Blood specimen (specimen) 02/08/2014 7:01 PM EDT 02/08/2014 7:01 PM EDT Misty De Guzman MD POINT OF CARE TEST ORDERABLES Performing Organization Address [facility] de Phone Number [facility] * POCT Glucose (02/08/2014 3:23 PM EDT) Glucose, POC 175 60 - 199 mg/dL [facility] Comment: Supplemental ranges: <110 mg/dL before meals <200 mg/dL all other times of the day Blood specimen (specimen) 02/08/2014 3:23 PM EDT 02/08/2014 3:23 PM EDT Misty De Guzman MD POINT OF CARE TEST ORDERABLES Performing Organization Address [facility] de Phone Number [facility] * POCT Glucose (02/08/2014 9:29 AM EDT) Glucose, POC 133 60 - 199 mg/dL [facility] Comment: Supplemental ranges: <110 mg/dL before meals <200 mg/dL all other times of the day Blood specimen (specimen) 02/08/2014 9:29 AM EDT 02/08/2014 9:29 AM EDT Misty De Guzman MD POINT OF CARE TEST ORDERABLES Performing Organization Address [facility] de Phone Number [facility] * Prothrombin Time (02/08/2014 8:34 AM EDT) Prothrombin Time 15.0 12.0 - 15.0 sec [facility] Comment: [facility] Transfusion Committee Guidelines: INR less than 2.0, PTT less than OR equal to 43.5 seconds, or Fibrinogen greater than or equal to 100 mg/dl indicate adequate procoagulant activity for hemostasis in patients without underlying bleeding disorders. International Normalization Ratio 1.1 0.9 - 1.1 [facility] Blood specimen (specimen) 02/08/2014 8:34 AM EDT [...] Demi Jung RN)1932 (Given - Provider: Bari Duckworth RN)2334 (Given - Provider: Bari Duckworth RN) [...] Bari Duckworth, RN) HYDROmorphone (DILAUDID) 1 mg/mL COMPLIANCE AND CONTROL ANALYST 30 mL (CANCELED) Intravenous, COMPLIANCE AND CONTROL ANALYST ONLY, Starting on Sat02/08/14 at 1545, Until [...] FRACISCO)1305 (New Bag - Provider: Meliton Mcpherson, RFACISCO)1533 (Rate/Dose Change - Provider: Tierra Frost, FRACISCO) 0529 (New Bag - Provider: Mikayla Lincoln, FRACISCO) 0402 (New Bag - Provider: Bari Duckworth, RN) PRN Medication Order 02/10/2014 02/11/2014 02/12/2014 oxyCODONE (ROXICODONE) 5 mg/5 mL solution 5-10 mg 5-10 mg, Oral, EVERY 4 HOURS PRN, Starting on Diamond 02/11/14 at 0720, Until Sat02/12/14 at 1450, Pain, Routine thrombn (Hum Plas)-Fib-Apro-Ca (TISSEEL VHAK) 10 mL topical syringe (CANCELED) ONCE PRN, Starting on Sat02/10/14 at 1126, Until Sat02/12/14 at 1450, Intra-Operative (Intra-Procedure), Routine 1126 (Given - Provider: Misty De Guzman MD) documented in this encounter Care Teams Job Developer Relationship Specialty Start Date End Date Manolo Castro MD [address] [place] [id number] PCP - General 05/14/12 04/21/17 documented as of this encounter
--- OUTSIDE RECORDS SUMMARY | 2024-08-05 21:27 | XMS_ITS | Encounter Summary ---
Author Organization [facility] [place] [address] Care Team Providers Care Account Resolution Analyst Name Role Phone Manolo Castro MD Primary Care Provider [phone] Encounter Details Date Type Department Care Team (Late st Contact Info) Description 02/10/2014 9:44 AM EDT Anesthesia Event [place] [address] Blaise Almonte MD [facility] [address] [place] [address] Anesthesia Record Procedure Summary Procedure Name Responsible [...] time, cardizem gtt running, report given to international sales representative. 1244 Stop Meds Name Total fentaNYL 150 [...] 0932; metacarpal vein (top of hand), left; gioa-qic-mcxbdy catheter system; 18 gauge, 1 in length; [...] cephalic vein (lateral side of arm), right; zytb-ewd-rlsobk catheter system; 22 gauge, 1 in length; [...] OR MULTIPLE performed by Wally Pfeiffer MDat [facility] ENDOSCOPY ??? Upper gi endoscopy, diagnostic 12/25/2013 EGD, UPPER GI ENDOSCOPY performed by Wally Pfeiffer MD at [facility] ENDOS[facility] ??? Lap, esophagus, other proc 02/08/2014 LAPAROSCOPIC REVISION OF DELROY FUNDOPLASTY performed by Wally Pfeiffer MD at [facility] OR ??? Lap gastric bypass/monica-en-y 02/08/2014 @LAPAROSCOPIC GASTROPLASTY, performed by Wally Pfefifer MD at [facility] OR ??? Upper gi endoscopy, diagnostic 02/08/2014 ENDOSCOPY, UPPER GI, DIAGNOSTIC, WITH OR WITHOUT SPECIMENS performed by Wally Pfeiffer MD at [facility] MAIN OR History Substance Use Topics [...] Pulmonary Assessment: Dental Assessment: - normal exam [facility] Assessment: IV access: Peripheral line Other exam [...] consented to blood products. Plan discussed with DEICER INSPECTOR PNEUMATIC. [facility]. Assessment: documented in this encounter Plan of [...] mg documented in this encounter Care Teams Account Resolution Analyst Relationship Specialty Start Date End Date Manolo Castro MD [address] [place] [address] PCP - General 05/14/12 04/21/17 documented as of this encounter
--- OUTSIDE RECORDS SUMMARY | 2024-08-05 21:27 | XMS_ITS | Encounter Summary ---
[place] [address] Care Team Providers Care Industrial Safety And Health Manager Name Role Phone Manolo Castro MD Primary Care Provider [phone] Encounter Details Date Type Department Care Team (Late st Contact Info) Description 02/08/2014 9:48 AM EDT Anesthesia Event [place] [address] Adis Oliva MD [facility] [place] [address] Anesthesia Record Procedure Summary Procedure Name Responsible [...] 931; metacarpal vein (top of hand), left; pybt-ayz-buroby catheter system; 18 gauge, 1 in length; [...] 02/08/14; 1046 02/08/14 1010 by Leilani Ahn, COMMERCIAL ROOFING ESTIMATOR 02/08/14 1046 by Leilani Ahn CRNA Incision [...] OR MULTIPLE performed by Wally Pfeiffer MDat [facility] ENDOSCOPY ??? Upper gi endoscopy, diagnostic 12/25/2013 EGD, UPPER GI ENDOSCOPY performed by Wally Pfeiffer MD at [facility] END[facility] History Substance Use Topics ??? Smoking [...] to blood products. Plan discussed with SH[place]A. [facility] Assessment: documented in this encounter Miscellaneous Notes [...] mg documented in this encounter Care Teams Industrial Safety And Health Manager Relationship Specialty Start Date End Date Manolo Castro MD [address] [place] [address] PCP - General 05/14/12 04/21/17 documented as of this encounter
--- OUTSIDE RECORDS SUMMARY | 2024-08-05 21:27 | XMS_ITS | Encounter Summary ---
Author Organization [facility] [place] [address] Care Team Providers Care Wildlife Officer Name Role Phone Manolo Castro MD Primary Care Provider [phone] Encounter Details Date Type Department Care Team (Late st Contact Info) Description 02/10/2014 9:24 AM EDT - 02/10/2014 11:34 AM EDT Surgery [place] [address] Misty De Guzman MD [facility] [place] [address] LAPAROSCOPY, DIAGNOSTIC, ABDOMEN (WRVU 5.14) Social History [...] EDT BARIATRIC SURGERY DISCHARGE INFORMATION CONTACT INFORMATION: [phone] Surgeons: Dr. Martinez, Cyndi, Margarette and Hadley [phone] Glue Maker Bone: [phone] (Saturday through Saturday, 8:00 AM -5:00 PM) Dietitian: [phone] Non-business hours: [phone], ask for general surgeon three dimensional map modeler FOR EMERGENCIES: CALL 911 (trouble breathing, chest [...] had open gastric bypass and have kellie: [place] should be removed 10 - 12 days after surgery. This can be done at [facility] or via Primary Care Provider (PCP). Do [...] 200 on more than 3 rechecks, call [facility] physician or diabetic specialist for specific [...] Follow up with primary care doctor or adolescent specialist in 1-2 weeks. Bring meter to [...] Provider Department Center 03/02/2014 3:00 PM Bariatric, Spiral Winding Machine Helper Tor Surg [facility] 03/02/2014 3:40 PM [...] 10:09 AM EDT Care Management/ CRC Pager# [phone]/ Assessment and Initial discharge planning S: I am feeling pretty good today. I had some jello and some apple juice. That is a good thing! My son Momo will be helping me when I am able to go home. O: Met with patient this morning. Notes reviewed. Patient lives in [facility]. Patient has Cigna, National OOS Blue PPO, and Medicare (part A only) insurance. [facility] Patient is POD# 3 laparoscopic Monica-en-Y gastric [...] q4hr prn. 99% on 2liters oxygen via reed worker this morning. A: Patient progressing post-op. Patient [...] is stable and Pain well controlled DC THREAD TWISTER and start Oxycodone liquid for pain controll [...] 63 y.o. male 2 Days Post-Op s/p moniac-en-y gastric bypass Check labs at 8am: Hemogram, [...] Office of Care Management (OCM) / Clinical Warehouse Selector (CRC)/ Initial Assessment Discussed patient with Provider Team and in multidisciplinary discharge-planning rounds. Reviewed record; patient off unit for procedure. Introduced/reviewed CRC role and services accepted. REASON for HOSPITALIZATION:s/p monica-en-y gastric bypass NPO; THREAD TWISTER; IVF's;UGI/SBF pending;Lovenox (on Coumadin for AF) PMH Past Medical History Diagnosis Date ??? Blood disorder ??? Circulatory disease ??? 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 PRIMARY CARE PHYSICIAN: MANOLO CASTRO MD [place] [phone] / [facility] [phone] POTENTIAL DISCHARGE NEEDS: none anticipated PATIENT/FAMILY EDUCATION NEEDS:per discharge summary ANTICIPATED BARRIERS TO DISCHARGE:none TRANSPORTATION @ D/C: PLAN: CRC will continue to monitor progress, follow for continuity of care and assist with discharge planning while hospitalized KENYATTA SANDS RN CRC for Melba Elmore RN CRC pager [phone] . * Ricky Trotter MD - 02/09/2014 [...] pain and nausea at this time. Using THREAD TWISTER appropriately, patient very drowsy but easily woken. Lap sites CDI. HR irreg. Will continue to monitor. * Radha Sanchez RN - 02/08/2014 4:49 PM EDT Report to Claire 4w. Pt sleepy, easily arousable. States he is comfortable. Gave special procedures nurse with instruction. documented in this encounter H&P [...] currently had full participation in the [facility] Bariatric Surgery Program and meets NIH criteria [...] majority of our 40 minutes today in [id number] conversation regarding various treatment options for obesity [...] 02/13/2014 12:56 PM EDTAssociated Order(s): SCAN DOC: REAL ESTATE AGENCY LICENSEE documented in this encounter Miscellaneous Notes * [...] part of your care. Bariatric Surgery - [phone]: Follow-up with Dr. De Guzman PCP: MANOLO CASTRO MD, . Please follow-up with your PCP in 1-2 weeks or sooner as needed. Scheduled Appointments: The following appointments have been scheduled on your behalf: Future Appointments and Orders Future Appointments: Provider: Department: Dept Phone: Center: 03/02/2014 3:00 PM Spiral Winding Machine Helper Bariatric General Surgery [phone] [facility] 03/02/2014 3:40 PM Misty De Guzman MD General Surgery [phone] [facility] Outpatient Services/Studies: No discharge procedures on file. Instructions Given to Patient at Discharge: Provider Instructions BARIATRIC SURGERY DISCHARGE INFORMATION CONTACT INFORMATION: [phone] Surgeons: Cyndi Lujan Laycock and Trus [phone] Glue Maker Bone: [phone] (Saturday through Saturday, 8:00 AM -5:00 PM) Dietitian: [phone] Non-business hours: [phone], ask for general surgeon three dimensional map modeler FOR EMERGENCIES: CALL 911 (trouble breathing, chest [...] after surgery. This can be done at [facility] or via Primary Care Provider (PCP). Do [...] 200 on more than 3 rechecks, call [facility] physician or diabetic specialist for [...] Follow up with primary care doctor or adolescent specialist in 1-2 weeks. Bring meter to [...] Provider Department Center 03/02/2014 3:00 PM Bariatric, Spiral Winding Machine Helper Le[facility] 03/02/2014 3:40 PM Misty De Guzman MD [facility] General Instructions None Future Appointments and Orders Future Appointments: Provider: Department: Dept Phone: Center: 03/02/2014 3:00 PM Spiral Winding Machine Helper Bariatric General Surgery [phone] [facility] 03/02/2014 3:40 PM Misty De Guzman MD General Surgery [phone] [facility] Call your doctor if: Please call [...] managed by the Bariatric Surgery Team at [facility]. If you have any questions or concerns, please feel free to contact us. Provider Contact Information: General Surgery Clinic: [facility] (after business hours): CC: MANOLO CASTRO MD [...] flowsheet for pain assessment. Pt with Dilaudid THREAD TWISTER 0.3/15/5 pt understands use, not utilized overnight. [...] pain. Pt stating good relief with Dilaudid THREAD TWISTER. Pt reporting no nausea,SOB or chest pain. Assessment as documented. Will continue to monitor. * Op Note - Misty De Guzman MD - 02/10/2014 2:56 PM EDT [facility] Operative Note Patient Name: Eugene Rueda : [id number] MR#: [id number] Case Date: 02/10/2014 Surgeon: Surgeon(s) and Role: * Misty De Guzman MD - Primary * Ricky Trotter MD - Resident-Campus Dean * Homero Hernandez MD - [facility] Preoperative diagnosis: post-op bleeding s/p rnygb Postoperative [...] Operative Note Patient Name: Eugene Rueda : [id number] MR#: [id number] Case Date: 02/10/2014 Surgeon: Surgeon(s) and Role: * Misty De Gumzan MD - Primary * Ricky Trotter MD - Resident-Campus Dean * Homero Hernandez MD - Resident-Campus Dean Preoperative diagnosis: post-op bleeding s/p rnygb Postoperative [...] Operative Note Patient Name: Eugene Rueda : [id number] MR#: [id number] Case Date: 02/10/2014 Surgeon: Surgeon(s) and Role: * Misty De Guzman MD - Primary * Ricky Trotter MD - Resident-Campus Dean * Homero Hernandez MD - Resident-Campus Dean Preoperative diagnosis: post-op bleeding s/p rnygb Postoperative diagnosis: post-op bleeding s/p rnygb Procedure(s): LAPAROSCOPY, DIAGNOSTIC, ABDOMEN Anesthesia: General Findings: dense clot under liver and diaphragm, no site of active bleeding Complications: none Fluids: 1300cc Estimated Blood Loss: 500cc Drains: 10 Hungarian MONICA drain Disposition: awakened from anesthesia, extubated [...] Operative Note Patient Name: Eugene Rueda : [id number] MR#: [id number] Case Date: 02/08/2014 Surgeon: Surgeon(s) and Role: [...] Guzman MD - 02/08/2014 9:37 AM EDT [facility] Operative Note Patient Name: Eugene Rueda : [id number] MR#: [id number] Case Date: 02/08/2014 Surgeon: Surgeon(s) and Role: [...] engaged with the bariatric surgery program at [facility]. He has multiple weight-related comorbidities, he meets NIH criteria for weight loss surgery, and he has had full participation in the [facility] bariatric surgery program. Following review of his [...] posteriorly and encircle the esophagus with a [place] drain. This was held in place using [...] all other items from the esophagus. The Novelty 60 blue load was angled horizontally at [...] and the small-bowel serosa, and using an Novelty 60 with a white load the jejunum [...] fashioned using a single firing of the Novelty 60 with a white load. That enterotomy [...] limb, and a partial firing of the Novelty 60 blue load at 30 mm was formed for the gastrojejunostomy. A 30-Hungarian bougie was then passed by Anesthesia down [...] Procedure Name Priority Date/Time Associated Diagnosis Comments REAL ESTATE AGENCY LICENSEE SCAN 02/13/2014 12:56 PM EDT POCT GLUCOSE [...] in this encounter Results * SCAN DOC: REAL ESTATE AGENCY LICENSEE (02/13/2014 12:56 PM EDT) Anatomical Region Laterality Modality Other Narrative 02/13/2014 1:14 PM EDT Procedure Note Provider, Scanning - 02/13/2014 12:56 PM EDT Scanning Provider MEDIA MGR SCAN EXT O RDR/RSLT * POCT Glucose (02/12/2014 12:09 PM EDT) [facility] Glucose, POC 145 60 - 199 mg/dL [facility] Comment: Supplemental ranges: <110 mg/dL [...] OF CARE TEST ORDERABLES Performing Organization Address City/[facility]/ZIP Co de Phone Number DERICK MURPHYENNIUM [...] De Guzman MD HEMATOLOGY ORDERABL ES CERNER ClothiaIUM * (ABNORMAL) Basic Metabolic Panel (non-fasting) (02/12/2014 5:32 AM EDT) Glucose 131 60 - 199 mg/dL CERNER MILLENNIUM Comment:Diabetes: >=200 mg/d L plus symptoms Blood Urea Nitrogen 16 10 - 20 mg/dL CERNER MILLENNIUM Creatinine 0.67(L) 0.80 - 1.50 mg/dL CERNER MILLENNIUM Comment: Please note that the pediatric reference intervals supplied above were not validated at [facility]. Results from pediatric patients should be interpreted [...] ORDERABL ES Performing Organization Address [facility]/ZIP Co de Phone Number [facility] * POCT Glucose (02/12/2014 3:50 AM EDT) Glucose, POC 123 60 - 199 mg/dL [facility] Comment: Supplemental ranges: <110 mg/dL before meals <200 mg/dL all other times of the day Blood specimen (specimen) 02/12/2014 3:50 AM EDT 02/12/2014 3:50 AM EDT Misty De Guzman MD POINT OF CARE TEST ORDERABLES Performing Organization Address [facility] de Phone Number [facility] * POCT Glucose (02/11/2014 11:26 PM EDT) Glucose, POC 178 60 - 199 mg/dL [facility] Comment: Supplemental ranges: <110 mg/dL before meals <200 mg/dL all other times of the day Blood specimen (specimen) 02/11/2014 11:26 PM EDT 02/11/2014 11:26 PM EDT Misty De Guzman MD POINT OF CARE TEST ORDERABLES Performing Organization Address [facility] Co de Phone Number [facility] * POCT Glucose (02/11/2014 7:20 PM EDT) Glucose, POC 140 60 - 199 mg/dL [facility] Comment: Supplemental ranges: <110 mg/dL before meals <200 mg/dL all other times of the day Blood specimen (specimen) 02/11/2014 7:20 PM EDT 02/11/2014 7:20 PM EDT Misty De Guzman MD POINT OF CARE TEST ORDERABLES Performing Organization Address [facility] Co de Phone Number [facility] * POCT Glucose (02/11/2014 4:15 PM EDT) Glucose, POC 149 60 - 199 mg/dL [facility] Comment: Supplemental ranges: <110 mg/dL before meals <200 mg/dL all other times of the day Blood specimen (specimen) 02/11/2014 4:15 PM EDT 02/11/2014 4:15 PM EDT Misty De Guzman MD POINT OF CARE TEST ORDERABLES Performing Organization Address [facility] de Phone Number [facility] * POCT Glucose (02/11/2014 11:45 AM EDT) Glucose, POC 157 60 - 199 mg/dL [facility] Comment: Supplemental ranges: <110 mg/dL before meals <200 mg/dL all other times of the day Blood specimen (specimen) 02/11/2014 11:45 AM EDT 02/11/2014 11:45 AM EDT Misty De Guzman MD POINT OF CARE TEST ORDERABLES Performing Organization Address [facility] Phone Number [facility] * POCT Glucose (02/11/2014 6:56 AM EDT) Glucose, POC 158 60 - 199 mg/dL [facility] Comment: Supplemental ranges: <110 mg/dL before meals <200 mg/dL all other times of the day Blood specimen (specimen) 02/11/2014 6:56 AM EDT 02/11/2014 6:56 AM EDT Misty De Guzman MD POINT OF CARE TEST ORDERABLES Performing Organization Address [facility] de Phone Number [facility] * (ABNORMAL) Differential, Automated (02/11/2014 4:46 AM EDT) Neutrophil % 80.0(H) 34.0 - 71.0 % [facility] Neutrophil Absolute 8.15(H) 1.50 - 6.30 x10(3)/mc L [facility] MILL[facility]ENTER[facility] Lymph % 7.6(L) 19.0 - [...] Metabolic Panel (non-fasting) (02/11/2014 4:46 AM EDT) [facility] Glucose 152 60 - 199 mg/dL CERNER MILLENNIUM Comment:Diabetes: >=200 mg/d L plus symptoms Blood Urea Nitrogen 17 10 - 20 mg/dL CERNER MILLENNIUM Creatinine 0.90 0.80 - 1.50 mg/dL CERNER MILLENNIUM Comment: Please note that the pediatric reference intervals supplied above were not validated at [facility]. Results from pediatric patients should be interpreted [...] MILLENNIUM Est Glomerular Filtration Rate >60 >=[address] [facility] Comment: This estimated GFR (eGFR) value was [...] ORDERABLE S Performing Organization Address [facility] de Phone Number [facility] * POCT Glucose (02/11/2014 4:35 AM EDT) Glucose, POC 151 60 - 199 mg/dL [facility] Comment: Supplemental ranges: <110 mg/dL before meals <200 mg/dL all other times of the day Blood specimen (specimen) 02/11/2014 4:35 AM EDT 02/11/2014 4:35 AM EDT Misty De Guzman MD POINT OF CARE TEST ORDERABLES Performing Organization Address [facility] de Phone Number [facility] * POCT Glucose (02/10/2014 11:29 PM EDT) Glucose, POC 146 60 - 199 mg/dL [facility] Comment: Supplemental ranges: <110 mg/dL before meals <200 mg/dL all other times of the day Blood specimen (specimen) 02/10/2014 11:29 PM EDT 02/10/2014 11:29 PM EDT Misty De Guzman MD POINT OF CARE TEST ORDERABLES Performing Organization Address [facility]/ZIP Co de Phone Number DERICK MURPHY * POCT Glucose (02/10/2014 7:58 PM EDT) Glucose, POC 112 60 - 199 mg/dL [facility] Comment: Supplemental ranges: <110 mg/dL before meals <200 mg/dL all other times of the day Blood specimen (specimen) 02/10/2014 7:58 PM EDT 02/10/2014 7:58 PM EDT Misty De Guzman MD POINT OF CARE TEST ORDERABLES Performing Organization Address [facility] de Phone Number DERICK MURPHY * POCT Glucose (02/10/2014 4:06 PM EDT) Glucose, POC 141 60 - 199 mg/dL [facility] Comment: Supplemental ranges: <110 mg/dL before meals <200 mg/dL all other times of the day Blood specimen (specimen) 02/10/2014 4:06 PM EDT 02/10/2014 4:06 PM EDT Misty De Guzman MD POINT OF CARE TEST ORDERABLES Performing Organization Address [facility] de Phone Number DERICK MURPHY * (ABNORMAL) Differential, Automated (02/10/2014 3:50 PM EDT) Neutrophil % 82.5(H) 34.0 - 71.0 % [facility] Neutrophil Absolute 9.11(H) 1.50 - 6.30 x10(3)/mc [...] Platelet Volume 9.5 9.0 - 12.0 fL [facility] MILLENNIUM Blood specimen (specimen) 02/10/2014 3:50 PM EDT 02/10/2014 3:56 PM EDT Narrative Resulting Agency Comment Spec In Lab Misty De Guzman MD HEMATOLOGY ORDERABL ES Performing Organization Address [facility] Co de Phone Number [facility] * POCT Glucose (02/10/2014 12:34 PM EDT) Glucose, POC 160 60 - 199 mg/dL [facility] Comment: Supplemental ranges: <110 mg/dL before meals <200 mg/dL all other times of the day Blood specimen (specimen) 02/10/2014 12:34 PM EDT 02/10/2014 12:34 PM EDT Misty De Guzman MD POINT OF CARE TEST ORDERABLES Performing Organization Address [facility] Phone Number [facility] * (ABNORMAL) Prothrombin Time (02/10/2014 7:33 AM EDT) Prothrombin Time 17.0(H) 12.0 - 15.0 sec [facility] JEFFREYENNIUM Comment: [facility] Transfusion Committee Guidelines: INR less than 2.0, PTT less than OR equal to 43.5 seconds, or Fibrinogen greater than or equal to 100 mg/dl indicate adequate procoagulant activity for hemostasis in patients without underlying bleeding disorders. International Normalization Ratio 1.3(H) 0.9 - 1.1 [facility] MILLENNIUM Blood specimen (specimen) 02/10/2014 7:33 AM EDT 02/10/2014 7:39 AM EDT Narrative Resulting Agency Comment Spec In Lab Misty De Guzman MD HEMATOLOGY ORDERABL ES Performing Organization Address [facility] de Phone Number DERICK KRAFTIUM * Magnesium (02/10/2014 7:33 AM EDT) Magnesium 0.79 0.69 - 1.07 mmol/L CERNER MILLENNIUM Blood specimen (specimen) 02/10/2014 7:33 AM EDT 02/10/2014 7:39 AM EDT Narrative Resulting Agency Comment Spec In Lab Misty De Guzman MD CHEMISTRY ORDERABLE S Performing Organization Address [facility] Co de Phone Number [...] ORDERABL ES Performing Organization Address [facility]/ZIP Co de Phone Number CERWALDO MILLENNIUM [...] TEST ORDERABLES Performing Organization Address [facility] de Phone Number CERWALDO [...] Gran % 0.20 0.00 - 0.66 % [facility] 3DVistaENNIUM Comment: Immature granulocytes(IG's)percentage and absolute count will include metamyelocytes, myelocytes, and promyelocytes. Blood smears from CBCs yielding IG's will be scanned manually for concordance. If this scan disagrees with the automated IG or if promyelocytes are noted, a manual differential will be performed. Immature Gran Absolute 0.02 0.00 - 0.05 x10(3)/mc L [facility] 3[facility]ista[facility] Blood specimen (specimen) 02/10/2014 2:40 AM EDT 02/10/2014 2:55 AM EDT Misty De Guzman MD HEMATOLOGY ORDERABL ES Performing Organization Address [facility] de Phone Number [facility] * (ABNORMAL) Prothrombin Time (02/10/2014 2:40 AM EDT) Prothrombin Time 16.4(H) 12.0 - 15.0 sec [facility] 3DVistaTUCS[facility] Comment: [facility] Transfusion Committee Guidelines: INR less than 2.0, PTT less than OR equal to 43.5 seconds, or Fibrinogen greater than or equal to 100 mg/dl indicate adequate procoagulant activity for hemostasis in patients without underlying bleeding disorders. International Normalization Ratio 1.3(H) 0.9 - 1.1 [facility] 3DVistaTUCSON MED[facility] CENTERIUM Blood specimen (specimen) 02/10/2014 2:40 AM EDT 02/10/2014 2:54 AM EDT Narrative Resulting Agency Comment Spec In Lab Misty De Guzman MD HEMATOLOGY ORDERABL ES Performing Organization Address [facility] Co de Phone Number DERICK MURPHY * APTT (02/10/2014 2:40 AM EDT) Partial Thromboplastin Time 33 25 - 35 sec [facility] ClothiaIUM Comment: Recommended therapeutic PTT range for full dose unfractionated heparin is 80-114 seconds. Blood specimen (specimen) 02/10/2014 2:40 AM EDT 02/10/2014 2:54 AM EDT Narrative Resulting Agency Comment Spec In Lab Misty De Guzman MD HEMATOLOGY ORDERABL ES Performing Organization Address [facility] Co de Phone Number [...] ORDERABL ES Performing Organization Address [facility]/ZIP Co de Phone Number CERNER MILLENNIUM [...] intervals supplied above were not validated at [facility]. Results from pediatric patients should be interpreted [...] TEST ORDERABLES Performing Organization Address [facility] de Phone Number DERICK MURPHY * EKG 12 Lead (02/09/2014 10:11 PM EDT) Ventricular rate 130 BPM MUSE SYSTEM Atrial Rate 86 BPM MUSE SYSTEM QRS Duration 76 ms MUSE SYSTEM Q-T Interval 332 ms MUSE SYSTEM QTC Calculated (Bezet) 488 ms MUSE SYSTEM Calculated R [place] 47 degrees MUSE SYSTEM Calculated T [place] 35 degrees MUSE SYSTEM INTERPRETATION Atrial fibrillation with rapid ventricular response Low voltage QRS Abnormal ECG When compared with ECG of 18-NOV-2013 13:19, No significant change was found Confirmed by MD Darío, Andrez ([id number]) on 02/10/2014 11:18:33 PM MUSE SYSTEM 02/09/2014 10:1 1 PM EDT 02/10/2014 11:18 PM EDT Misty De Guzman MD ECG ORDERABLES Performing Organization Address [facility] de Phone Number MUSE SYSTEM * POCT Glucose (02/09/2014 10:03 PM EDT) Glucose, POC 115 60 - 199 mg/dL [facility] Comment: Supplemental ranges: <110 mg/dL before meals <200 mg/dL all other times of the day Blood specimen (specimen) 02/09/2014 10:03 PM EDT 02/09/2014 10:03 PM EDT Misty De Guzman MD POINT OF CARE TEST ORDERABLES Performing Organization Address [facility] de Phone Number DERICK MURPHY * (ABNORMAL) Hemogram (02/09/2014 9:00 PM EDT) Pathologist [facility] White Blood Cell 12.3(H) 4.0 - 10.0 x10(3)/mc L [facility] Red Blood Cell 3.70(L) 4.63 - [...] TEST ORDERABLES Performing Organization Address [facility] Co de Phone Number [...] Absolute 0.04 0.00 - 0.05 x10(3)/mc L [facility] Blood specimen (specimen) 02/09/2014 5:05 PM EDT 02/09/2014 5:14 PM EDT Misty De Guzman MD HEMATOLOGY ORDERABL ES Performing Organization Address [facility] Co de Phone Number [facility] * Antibody screen (02/09/2014 5:05 PM EDT) Pathologist [facility] Ab Screen Interp Negative [facility] Expires at [id number] on: [id number] [facility] Blood specimen (specimen) 02/09/2014 5:05 PM EDT 02/09/2014 5:14 PM EDT Narrative Resulting Agency Comment Spec In Lab Misty De Guzman MD BLOOD BANK LAB ORDRajeev GRECO Performing Organization Address [facility] de Phone Number [facility] * ABO/Rh Typing (02/09/2014 5:05 PM EDT) [facility] ABORH Type A Pos [facility] Blood specimen (specimen) 02/09/2014 5:05 PM EDT 02/09/2014 5:14 PM EDT Narrative Resulting Agency Comment Spec In Lab Misty De Guzman MD BLOOD BANK LAB ORDE ANGUS Performing Organization Address [facility] de Phone Number [facility] * (ABNORMAL) Basic Metabolic Panel (non-fasting) (02/09/2014 5:05 PM EDT) [facility] Glucose 144 60 - 199 mg/dL [facility] Comment:Diabetes: >=200 mg/d L plus symptoms Blood Urea Nitrogen 30(H) 10 - 20 mg/dL [facility] Comment:result rechecked- MT F Creatinine 2.96(H) 0.80 - 1.50 mg/dL [facility] Comment: result rechecked- MTF Please note that the pediatric reference intervals supplied above were not validated at [facility]. Results from pediatric patients should be interpreted [...] MURPHY * APTT (02/09/2014 5:05 PM EDT) [facility] Partial Thromboplastin Time 31 25 - 35 sec [facility] Comment: Recommended therapeutic PTT range for full dose unfractionated heparin is 80-114 seconds. Blood specimen (specimen) 02/09/2014 5:05 PM EDT 02/09/2014 5:14 PM EDT Narrative Resulting Agency Comment Spec In Lab Misty De Guzman MD HEMATOLOGY ORDERABL ES Performing Organization Address [facility] Co de Phone Number DERICK MURPHYENNIUM * (ABNORMAL) Prothrombin Time (02/09/2014 5:05 PM EDT) Prothrombin Time 16.3(H) 12.0 - 15.0 sec [facility]NI[facility] Comment: [facility] Transfusion Committee Guidelines: INR less than [...] ORDERABL ES Performing Organization Address [facility]/ZIP Co de Phone Number CERWALDO MURPHYENNIUM [...] ORDERABL ES Performing Organization Address [facility] Co de Phone Number [...] TEST ORDERABLES Performing Organization Address [facility] Phone Number DERICK MURPHY * XR Fluoro Upper GI Small Bowel (02/09/2014 3:50 PM EDT) Anatomical Region Laterality Modality N/A Radiographic Sia ging 02/09/2014 3:50 PM EDT Narrative 02/10/2014 12:05 PM EDT Examination UGI W/SMALL BOWEL FOLLOW THROU Clinical History s/p gastric bypass, eval GJ and JJ anastomoses Comparison None Technique Respiratory Care Instructor views of the abdomen. Oral administration of [...] GJ and JJ anastomoses Comparison None Technique Respiratory Care Instructor views of the abdomen. Oral administration of [...] reviewed by the attending Homero Gonzales MD [facility] CAROLIN GRECO * POCT Glucose (02/09/2014 11:56 AM EDT) Glucose, POC 162 60 - 199 mg/dL [facility] Comment: Supplemental ranges: <110 mg/dL before meals <200 mg/dL all other times of the day Blood specimen (specimen) 02/09/2014 11:56 AM EDT 02/09/2014 11:56 AM EDT Misty De Guzman MD POINT OF CARE TEST ORDERABLES Performing Organization Address City/[facility] Co de Phone Number [facility] * POCT Glucose (02/09/2014 7:19 AM EDT) Glucose, POC 182 60 - 199 mg/dL [facility] Comment: Supplemental ranges: <110 mg/dL before meals <200 mg/dL all other times of the day Blood specimen (specimen) 02/09/2014 7:19 AM EDT 02/09/2014 7:19 AM EDT Misty De Guzman MD POINT OF CARE TEST ORDERABLES Performing Organization Address City/[facility] Co de Phone Number [facility] * POCT Glucose (02/09/2014 4:53 AM EDT) Glucose, POC 159 60 - 199 mg/dL [facility] Comment: Supplemental ranges: <110 mg/dL before meals <200 mg/dL all other times of the day Blood specimen (specimen) 02/09/2014 4:53 AM EDT 02/09/2014 4:53 AM EDT Misty De Guzman MD POINT OF CARE TEST ORDERABLES [facility] * (ABNORMAL) Differential, Automated (02/09/2014 4:37 AM [...] SANDY GRECO Performing Organization Address [facility] Co de Phone Number [facility] * Phosphorus (02/09/2014 4:37 AM EDT) Phosphorus 4.5 2.5 - 4.5 mg/dL [facility] Blood specimen (specimen) 02/09/2014 4:37 AM EDT 02/09/2014 5:07 AM EDT Narrative Resulting Agency Comment Spec In Lab Homero Gonzales MD CHEMISTRY ORDER RICCARDO Performing Organization Address [facility] de Phone Number [facility] * Magnesium (02/09/2014 4:37 AM EDT) Magnesium 0.75 0.69 - 1.07 mmol/L [facility] Blood specimen (specimen) 02/09/2014 4:37 AM EDT 02/09/2014 5:07 AM EDT Narrative Resulting Agency Comment Spec In Lab Homero Gonzales MD CHEMISTRY ORDER RICCARDO Performing Organization Address [facility] de Phone Number [facility] * (ABNORMAL) Glucose, fasting (02/09/2014 4:37 AM EDT) Glucose Fasting 176(H) 65 - 99 mg/dL [facility] Comment: ?Fasting* Glucose Interpretive Criteria [...] of Diabetes Mellitus, Position Statement from the [place] [employer]. ??Diabetes Care, Volume 33, Supplement 1, Oct 2009 Blood specimen (specimen) 02/09/2014 4:37 AM EDT 02/09/2014 5:07 AM EDT Narrative Resulting Agency Comment Spec In Lab Homero Gonzales MD CHEMISTRY ORDER RICCARDO Performing Organization Address [facility] Co de Phone Number DERICK MURPHYCombat StrokeIUM * Creatinine (02/09/2014 4:37 AM EDT) Creatinine 1.13 0.80 - 1.50 mg/dL [facility] Comment: Please note that the pediatric reference intervals supplied above were not validated at [facility]. Results from pediatric patients should be interpreted [...] MD CHEMISTRY ORDER RICCARDO Performing Organization Address City/[facility] Co de Phone Number DERICK MURPHYCombat StrokeIUM * BUN (02/09/2014 4:37 AM EDT) Blood Urea Nitrogen 18 10 - 20 mg/dL [facility] Blood specimen (specimen) 02/09/2014 4:37 AM EDT [...] Platelet 249 145 - 370 x10(3)/mc L [facility] RDW Standard Deviation 46.6(H) 35.0 - 46.0 fL [facility] RDW coefficient of variation 14.2 10.9 - 14.4 % [facility] Mean Platelet Volume 9.9 9.0 - 12.[address] f[address] [facility] Blood specimen (specimen) 02/09/2014 4:37 AM EDT 02/09/2014 5:07 AM EDT Narrative Resulting Agency Comment Spec In Lab Homero Gonzales MD HEMATOLOGY SANDY GRECO Performing Organization Address City/[facility]/ZIP Co de Phone Number [facility] * POCT Glucose (02/09/2014 12:26 AM EDT) Glucose, POC 165 60 - 199 mg/dL [facility] Comment: Supplemental ranges: <110 mg/dL before meals <200 mg/dL all other times of the day Blood specimen (specimen) 02/09/2014 12:26 AM EDT 02/09/2014 12:26 AM EDT Misty De Guzman MD POINT OF CARE TEST ORDERABLES Performing Organization Address [facility]/ZIP Co de Phone Number [facility] * POCT Glucose (02/08/2014 7:01 PM EDT) Glucose, POC 152 60 - 199 mg/dL [facility] Comment: Supplemental ranges: <110 mg/dL before meals <200 mg/dL all other times of the day Blood specimen (specimen) 02/08/2014 7:01 PM EDT 02/08/2014 7:01 PM EDT Misty De Guzman MD POINT OF CARE TEST ORDERABLES Performing Organization Address [facility]/ZIP Co de Phone Number [facility] * POCT Glucose (02/08/2014 3:23 PM EDT) Glucose, POC 175 60 - 199 mg/dL [facility] Comment: Supplemental ranges: <110 mg/dL before meals <200 mg/dL all other times of the day Blood specimen (specimen) 02/08/2014 3:23 PM EDT 02/08/2014 3:23 PM EDT Misty De Guzman MD POINT OF CARE TEST ORDERABLES Performing Organization Address [facility] Phone Number [facility]PHY[facility]CSON MED[facility] CENTERNE[facility] * POCT Glucose (02/08/2014 9:29 AM EDT) Glucose, POC 133 60 - 199 mg/dL [facility] 3[facility]ista[facility]NIUM Comment: Supplemental ranges: <110 mg/dL before meals <200 mg/dL all other times of the day Blood specimen (specimen) 02/08/2014 9:29 AM EDT 02/08/2014 9:29 AM EDT Misty De Guzman MD POINT OF CARE TEST ORDERABLES Performing Organization Address [facility] Phone Number DERICK MURPHY * Prothrombin Time (02/08/2014 8:34 AM EDT) Prothrombin Time 15.0 12.0 - 15.0 sec [facility] 3[facility]ista[facility]NIUM Comment: [facility] Transfusion Committee Guidelines: INR less than [...] ORDERABL ES Performing Organization Address [facility] Phone Number DERICK MURPHY documented in [...] Bari Duckworth RN) HYDROmorphone (DILAUDID) 1 mg/mL THREAD TWISTER 30 mL (CANCELED) Intravenous, THREAD TWISTER ONLY, Starting on 02/08/14 at 1545, Until [...] MD) documented in this encounter Care Teams Wildlife Officer Relationship Specialty Start Date End Date Manolo Castro MD [address] [place] [id number] PCP - General 05/14/12 04/21/17 documented as of this encounter
--- OUTSIDE RECORDS SUMMARY | 2024-08-05 21:27 | XMS_ITS | Encounter Summary ---
Author Organization [facility] [place] [address] Care Team Providers Care Sales Marketing Director Name Role Phone Manolo Castro MD Primary Care Provider Encounter Details Date Type Department Care Team (Late st Contact Info) Description 02/02/2014 Telephone [place] [id number] Milka Barrios, RN Social History Tobacco Use [...] filedocumented in this encounter Care Teams Sales Marketing Director Relationship Specialty Start Date End Date Manolo Castro MD [address] [place] [address] PCP - General 05/14/12 04/21/17 documented as of this encounter
--- OUTSIDE RECORDS SUMMARY | 2024-08-05 21:27 | XMS_ITS | Encounter Summary ---
Author Organization [facility] Address [facility] [place] [address] Care Team Providers Care Fire Extinguisher Charger Name Role Phone Manolo Castro MD Primary Care Provider [phone] Encounter Details Date Type Department Care Team (Late st Contact Info) Description 12/25/2013 9:30 AM EDT - 12/25/2013 10:00 AM EDT Surgery [place] [address] Wally Pfeiffer MD [facility] [address] EGD, UPPER GI ENDOSCOPY (WRVU 2.09) Social [...] occurs, please contact your MD/ Please call [phone] before 5pm with problems, questions or concerns. After 5pm call [phone] and ask to speak with the retail merchandising manager concrete block layer. Discharge instructions reviewed with patient who expresses understanding. * Attachments The following attachments cannot be sent through Care Everywhere. * EGD (UPPER ENDOSCOPY) : POST-OP (KYRGYZ) documented in this encounter Medications at [...] has currently had full participation in the [facility] Bariatric Surgery Program [...] majority of our 40 minutes today in [id number] conversation regarding various treatment options for obesity [...] (12/25/2013 9:36 AM EDT) UPPER GI ENDOSCOPY [facility] Endoscopy ___ Patient Name: Eugene Rueda ? Procedure Date: 12/25/2013 9:36 AM ? Date of : 1950 ? Age: 63 ? Order #: [id number] ? ___ Procedure: ? Upper GI endoscopy Indications: ? Preoperative assessment for bariatric ? surgery, Assessment following Ronnell ? fundoplication Providers: ? Wally Pfeiffer MD, Flavia Schneider ? FRACISCO Bueno, Julienne Pabon, ? Etl Software Engineer Referring MD: ?Manolo Castro MD Medicines: [...] Procedure Code(s): ?? --- Professional --- ? 43613, Upper gastrointestinal ? endoscopy including esophagus, ? [...] in this report are preliminary and upon oversize load pilot escort review may be revised to meet current [...] Watson) documented in this encounter Care Teams Fire Extinguisher Charger Relationship Specialty Start Date End Date Manolo Castro MD [address] [place] [address] PCP - General 05/14/12 04/21/17 documented as of this encounter
--- OUTSIDE RECORDS SUMMARY | 2024-08-05 21:27 | XMS_ITS | Encounter Summary ---
[place] [address] Care Team Providers Care Community Service Patrol Officer Name Role Phone Manolo Castro MD Primary Care Provider [phone] Encounter Details Date Type Department Care Team (Late st Contact Info) Description 02/02/2014 Orders [place] [address] Milka Barrios, RN Social History Tobacco Use [...] on filedocumented in this encounter Care Teams Community Service Patrol Officer Relationship Specialty Start Date End Date Manolo Castro MD [address] [place] [address] PCP - General 05/14/12 04/21/17 documented as of this encounter
--- OUTSIDE RECORDS SUMMARY | 2024-08-05 21:28 | XMS_ITS | Encounter Summary ---
Author Organization [facility] Address [facility] [place] [address] Care Team Providers Care Relay Technician Name Role Phone Eduardo Reina MD Primary Care Provider [phone] Encounter Details Date Type Department Care Team (Late st Contact Info) Description 04/11/2012 Orders [place] [address] Jose C Ledbetter, PA [facility]THOPA[facility] [place] [address] S/P knee replacement (Primary Dx) Social History [...] means documented in this encounter Care Teams Relay Technician Relationship Specialty Start Date End Date Eduardo Reina MD [address] [place], [place] [address] PCP - General 08/29/10 05/13/12 documented as of this encounter
--- OUTSIDE RECORDS SUMMARY | 2024-08-05 21:28 | XMS_ITS | Encounter Summary ---
Author Organization [facility] Address [facility] [place] [address] Care Team Providers Care Candle Wicker Name Role Phone Manolo Castro MD Primary Care Provider [phone] Encounter Details Date Type Department Care Team (Latest Contact Info) Description 12/11/2013 8:07 AM EST - 12/11/2013 11:36 AM EST Hospital Encounter [place] [address] Misty De Guzman MD [facility] [place] [address] Discharge Disposition: Home Social History Tobacco Use [...] occurs, please contact your MD/ Please call [phone] before 5pm with problems, questions or concerns. After 5pm call [phone] and ask to speak with the implementation coordinator educational technologist. Discharge instructions reviewed with patient who expresses understanding. * Attachments The following attachments cannot be sent through Care Everywhere. * UPPER GI ENDOSCOPY: WHAT TO EXPECT AT HOME (MACEDONIAN) documented in this encounter Medications at Time [...] has currently had full participation in the [facility] Bariatric Surgery Program and meets NIH criteria [...] majority of our 40 minutes today in [id number] conversation regarding various treatment options for obesity [...] (12/11/2013 10:10 AM EST) Final Diagnosis ? [facility] ? Provider: ?? MISTY DE GUZMAN ??Pt. Name: ?? EUGENE PURVIS ? Acc #: ?[id number] ?Pt. ? Col Date: ?? 12/11/2013 ?/Sex: [...] ? Question Abarca's 12/15/2013 10:06 AM EDT [facility] GI Biopsy 12/11/2013 10:1 0 AM EST 12/11/2013 10:10 AM EST Misty De Guzman MD PATHOLOGY/CYTOLOGY ORDERABLES Performing Organization Address City/State/[facility] Co de Phone Number [facility] [place] [address] * Specimen to Pathology (surgical or derm) (12/11/2013 10:10 AM EST) AP Specimen 12/11/2013 10:1 0 AM EST 12/11/2013 10:10 AM EST Narrative DERICK MURPHY - 12/11/2013 10:10 AM EST Specimen requisition ordered. ??Separate Pathology report to follow Misty De Guzman MD PATHOLOGY/CYTOLOGY ORDERABLES DERICK MURPHY * UPPER GI ENDOSCOPY (12/11/2013 9:31 AM EST) UPPER GI ENDOSCOPY [facility] Endoscopy Patient Name: Eugene Purvis ? Procedure Date: 12/11/2013 9:31 AM ? [facility]: [id number] ? Date of : 1950 ? Age: 62 ? Order #: [id number] ? Procedure: ? Upper GI endoscopy Indications: ? Preoperative assessment for bariatric ? surgery, Assessment following Ronnell ? fundoplication Providers: ? Misty De Guzman MD, Nora ? Noy, RN, Milka Baez, ? Duplicating Machine Mechanic Referring MD: ?Manolo Castro MD Medicines: ? [...] OF CARE TEST ORDERABLES Performing Organization Address City/[facility] Co de Phone Number [facility] documented in this encounter Visit Diagnoses [...] RN) documented in this encounter Care Teams Candle Wicker Relationship Specialty Start Date End Date Manolo Castro MD [address] [place] [address] PCP - General 05/14/12 04/21/17 documented as of this encounter
--- OUTSIDE RECORDS SUMMARY | 2024-08-05 21:28 | XMS_ITS | Encounter Summary ---
Author Organization [facility] [place] [address] Care Team Providers Care Tax Associate Attorney Name Role Phone Manloo Castro MD Primary Care Provider [phone] Reason for Visit * Reason Comments Patient Education Bariatric Surgery Pr ogram preoperative class Encounter Details Date Type Department Care Team ([facility] Contact Info) Description 12/18/2013 10:00 AM EDT Office [place] [address] Narda Allen, GRADUATE FELLOW [facility] [place] [address] Obesity (Primary Dx); Atrial fibrillation; Chronic anticoagulation; [...] needed. BARIATRIC SURGERY DISCHARGE INFORMATION CONTACT INFORMATION: [phone] Surgeons: Dr. Martinez, Cyndi, Margarette and Trus [phone] Radio Communication Coordinator: [phone] (Saturday through Saturday, 8:00 AM -5:00 PM) Dietitian: [phone] Non-business hours: [phone], ask for general surgeon electron tube assembler FOR EMERGENCIES: CALL 911 (trouble breathing, chest [...] had open gastric bypass and have dino: [place] should be removed 10 - 12 days after surgery. This can be done at [facility] or via Primary Care [...] 200 on more than 3 rechecks, call yourunc healthry care physician or diabetic specialist for specific recommendations, or as recommended at discharge. Follow up with primary care doctor or event marketing specialist in 1-2 weeks. Bring meter to [...] and post operative instructions included in the [facility] Bariatric Surgery Program Education [...] and post operative instructions included in the [facility] Bariatric Surgery Program Education [...] He previously attended a Introduction to the [facility] Bariatric Surgery Program seminar,a two hour meeting that provides a program overview as well as expectations. The [facility] Bariatric Surgery Program Educational seminar requirement (3 seminars with post-testing) has been met. The [facility] Educational Handbook was provided at visit #1. 2. Pre-operative programmatic evaluations have been done, as noted in previous pathway review. 3. Bariatric Surgery Program evaluations with RD and OVERNIGHT STOCKER have taken place, as noted in previous [...] surgery and post-op routine care/ locations: Admissions/SDP/PACU/01/07/ [facility] ?? medications that increase the risk [...] (pediatric) documented in this encounter Care Teams Tax Associate Attorney Relationship Specialty Start Date End Date Manolo Castro MD [address] [place] [address] PCP - General 05/14/12 04/21/17 documented as of this encounter
--- OUTSIDE RECORDS SUMMARY | 2024-08-05 21:28 | XMS_ITS | Encounter Summary ---
Author Organization [facility] Address [facility] [place] [address] Care Team Providers Care Electronic Security Technician Name Role Phone Manolo Castro MD Primary Care Provider [phone] Encounter Details Date Type Department Care Team (Latest Contact Info) Description 11/18/2013 8:11 AM EST - 11/18/2013 11:59 PM [facility] Hospital Encounter XRay at [address] [place] [address] CLINIC, Wally Che MD [facility] [place] [address] Morbid obesity; Status post Ronnell fundoplication (without [...] surgery, s/p paraesophagal hernia repair and Ronnell [id number]. Check integrity of wrap and evaluate for [...] mLs documented in this encounter Care Teams Electronic Security Technician Relationship Specialty Start Date End Date Manolo Castro MD [address] [place] [address] PCP - General 05/14/12 04/21/17 documented as of this encounter
--- OUTSIDE RECORDS SUMMARY | 2024-08-05 21:28 | XMS_ITS | Encounter Summary ---
[facility] Organization [facility] [place] [address] Care Team Providers Care Practice Managers Name Role Phone Manolo Castro MD Primary Care Provider Encounter Details Date Type Department Care Team (Late st Contact Info) Description 12/15/2013 Orders [place] [address] Narda Allen, [facility] [place] [address] Delayed gastric emptying; Morbid obesity; Hypertension; Type [...] reflux documented in this encounter Care Teams Practice Managers Relationship Specialty Start Date End Date Manolo Castro MD [address] [place] [address] PCP - General 05/14/12 04/21/17 documented as of this encounter
--- OUTSIDE RECORDS SUMMARY | 2024-08-05 21:28 | XMS_ITS | Encounter Summary ---
Author Organization [facility] Address [address] [place] [address] Care Team Providers Care Racing Manager Name Role Phone Dominic Restrepo MD Primary Care Provider [phone] Encounter Details Date Type Department Care Team (Late st Contact Info) Description 10/11/2021 Lab Requisition [facility] Pathology & Laboratory Medicine - [address] [address] Outr Resulting Lab, Provider Social History Tobacco [...] C Antibody Negative Negative 10/12/2021 10:10 EST [facility] Blood VENOUS BLOOD / Unknown 10/11/2021 9:25 EST 10/11/2021 21:22 EST Provider Outr Resulting Lab CHEMISTRY & BLOOD GAS ORDERABLES [facility] [address] [place] [address] documented in this encounter Visit Diagnoses Not on filedocumented in this encounter Care Teams Racing Manager Relationship Specialty Start Date End Date Dominic Restrepo MD [address] [place] [address] PCP - General 01/20/20 documented as of this encounter
--- OUTSIDE RECORDS SUMMARY | 2024-08-05 21:28 | XMS_ITS | Encounter Summary ---
Author Organization [facility] [place] [address] Care Team Providers Care Bargain Table Clerk Name Role Phone Manolo Castro MD Primary Care Provider Reason for Visit * Reason Comments Obesity Bariatric Surgery Pr lexi preoperative visit #2 Encounter Details Date Type Department Care Team (Latest Contact Info) Description 12/01/2013 11:00 AM EST Office Visit [place] [address] Narda Allen, [facility] [place] [address] Hypertension; Type 2 diabetes mellitus; Obstructive sleep [...] BARIATRIC SURGERY PROGRAM SECOND VISIT Contact information: [facility] Admin coordinator Tracy: [phone] Dietitian: [phone] Surgeons/ nurse practitioner: [phone] Nurse line: [phone] 1. Pending information: none BRIDGING PROTOCOL TO BEGIN 5 DAYS PRIOR TO PROCEDURE per personal support worker Day Treatment -5 Last warfarin dose -4 [...] ask for an estimate. Only the OR equipment scheduler can provide you with a date AFTER APPROVAL by your insurer. Some insurers, such as [employer] and [employer], approve quickly so you can likely get the OR date on the day you have a surgeon visit Pre-op Class: Tracy will schedule, pending your OR date. Prepare for the Pre-op Class by doing the followin. Review the program handbook and come to class with a list of questions. 2. Watch the videos on shopping, meal planning and emotional eating on the [facility] website under Bariatric Surgery ([email or web address].org/goto/chadd). 3. Go to [employer] and review the education materials ([email or web address]). 4. Come prepared to the class to [...] be crushed (if permitted by the drug inspector aligning) or taken in liquid form for TWO [...] through dieting have been unsuccessful over the penitentiary. Advised patient that bariatric surgery is a [...] He has attended a Introduction to the [facility] Bariatric [facility] seminar, a comprehensive two hour meeting that provides a program overview, education on bariatric surgeries offered at [facility], risks and benefits, as well as patient expectations and follow up, in July 2013. [facility] Educational seminars viewed: 3, in September 2013. Grades on post-testin-90%. The [facility] Educational Handbook is provided at visit #1. 2. Pre-operative programmatic evaluations: PCP evaluation and letter of support to proceed with surgery, [facility] labwork and psychological evaluation 3. Bariatric Surgery Program evaluations with RD and WET PAN MIXER: 11/03/13 and today. 4. Weight history: 195 [...] specific requirements: Medicare part A, [employer] and [place]- 3 months of supervised counseling 7. [facility]SP [...] 2 hour class taught by the Bariatric WET PAN MIXER and RD will be scheduled ?? During [...] circular mesh (11.4 cm in diameter) at [facility] 10/15/2012 ??? Vasectomy ??? Right carpal [...] 98.00%. Discussion of bariatric surgeries performed at [facility], risks and benefits, and the [facility] requirements: The risks of immediate and penitentiary complications as well as the benefits of [...] again emphasized. 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 Benefits of bariatric surgery discussed: [...] since banding surgery is not offered at [facility] due to unacceptably high complication rates reported [...] Rueda has met the requirements of the [facility] Bariat[facility] Program, and has an appointmenttoday for surgical consultation. He was encouraged to call with any questions or concerns. Data reviewed: Visit #2 questionnaire Barium swallow Cardiology evaluation Rehab med evaluation Thrombosis clinic evaluation Information reviewed with patient: 1. [facility] Bariat[facility] Educational Handbook, bariatric surgery patient agreement and risks and benefits of gastric bypass, sleeve gastrectomy and adjustable gastric banding surgery reviewed in detail. Pending/ other: - Copy of note from Dr. Castro regarding plan forTSH elevation - Ongoing weight loss encouraged Time spent in counseling: Individual planning and coordination of care: 5 minutes Group counselin minutes Questions regarding [facility] Bariat[facility] patients: please call Shayy Allen APRN at [phone] or [phone] beeper [phone]. documented in this encounter Plan of Treatment Not on file documented as of this encounter Visit Diagnoses Diagnosis Hypertension Unspecified essential hypertension Type 2 diabetes mellitus Type II or unspecified type diabetes mellitus without mention of complication, not stated as uncontrolled Obstructive sleep apnea (adult) (pediatric) Chronic anticoagulation Encounter for long-term (current) use of anticoagulants documented in this encounter Care Teams Bargain Table Clerk Relationship Specialty Start Date End Date Manolo Castro MD [address] [place] [address] PCP - General 05/14/12 04/21/17 documented as of this encounter
--- OUTSIDE RECORDS SUMMARY | 2024-08-05 21:28 | XMS_ITS | Encounter Summary ---
Author Organization [facility] Address [address] [place] [address] Care Team Providers Care Window Trimmer Name Role Phone Dominic Restrepo MD Primary Care Provider [phone] Encounter Details Date Type Department Care Team (Late st Contact Info) Description 01/31/2024 Lab Requisition [facility] Pathology & Laboratory Medicine - [address] [address] Outr Resulting Lab, Provider Social History Tobacco [...] Salmonella PCR Negative Negative 02/01/2024 10:42 EDT [facility] Shigella/Enteroin vasive E. coli Negative Negative 02/01/2024 10:42 EDT [facility] HN LAB CAMPYLOBACTER PCR Negative Negative 02/01/2024 10:42 EDT [facility] Shiga Toxin PCR Negative Negative 10:42 EDT [facility] Feces SPECIMEN FROM RECTUM / Unknown 01/31/2024 11:50 EDT 01/31/2024 22:07 EDT Provider Outr Resulting Lab MICROBIOLOGY - GENERAL ORDERABLES [facility] [address] [place], [place] [address] documented in this encounter Visit Diagnoses Not on filedocumented in this encounter Care Teams Window Trimmer Relationship Specialty Start Date End Date Dominic Restrepo MD [address] [place] [address] PCP - General 01/20/20 documented as of this encounter
--- OUTSIDE RECORDS SUMMARY | 2024-08-05 21:28 | XMS_ITS | Encounter Summary ---
Author Organization [facility] [place] [address] Care Team Providers Care Chief Cook Name Role Phone Manolo Castro MD Primary Care Provider [phone] Reason for Visit * Reason Onset Date Comments Follow-up 12/21/2013 Encounter Details Date Type Department Care Team (Late Contact Info) Description 12/21/2013 Telephone [place] [address] Narda Allen, BEAN PICKER [facility] [place] [address] Follow-up Social History Tobacco Use Types Packs/Day [...] on filedocumented in this encounter Care Teams Chief Cook Relationship Specialty Start Date End Date Manolo Castro MD [address] [place] [address] PCP - General 05/14/12 04/21/17 documented as of this encounter
--- OUTSIDE RECORDS SUMMARY | 2024-08-05 21:28 | XMS_ITS | Encounter Summary ---
Author Organization [facility] Address [address] [place] [address] Care Team Providers Care Livestock Showman Name Role Phone Dominic Restrepo MD Primary Care Provider [phone] Encounter Details Date Type Department Care Team (Late st Contact Info) Description 01/29/2020 Lab Requisition [facility] Pathology & Laboratory Medicine - [address] [address] Unknown, Provider, Social History Tobacco Use Types [...] Provider Unknown MICROBIOLOGY - CANDELARIA AL ORDERABLES [facility] [address] [place] [address] * COVID-19 TESTING (01/29/2020 9:47 EDT) COVID-19 rt-PCR Result Negative Negative 01/30/2020 13:[address] [facility] Comment: Negative results do [...] the FDA is pending. Performed on the [employer]da Fast Performing Lab [facility] 01/30/2020 13:[address] [facility] Swab ENTIRE NASOPHARYNX / Unknown 01/29/2020 9:47 EDT 01/29/2020 15:26 EDT Provider Unknown MICROBIOLOGY - GENER AL ORDERABLES [facility] [address] [place] [address] documented in this encounter Visit Diagnoses Not on filedocumented in this encounter Care Teams Livestock Showman Relationship Specialty Start Date End Date Dominic Restrepo MD [address] [place] [address] PCP - General 01/20/20 documented as of this encounter
--- OUTSIDE RECORDS SUMMARY | 2024-08-05 21:28 | XMS_ITS | Encounter Summary ---
Author Organization [facility] [place] [address] Care Team Providers Care Lawyer Name Role Phone Manolo Castro MD Primary Care Provider [phone] Reason for Visit * Reason Onset Date Comments Other 12/18/2013 Encounter Details Date Type Department Care Team ([facility] Contact Info) Description 12/18/2013 Telephone [place] [address] Narda Allen, TITLE PROCESSOR [facility] [place] [address] Other Social History Tobacco Use Types Packs/Day [...] on filedocumented in this encounter Care Teams Lawyer Relationship Specialty Start Date End Date Manolo Castro MD [address] [place] [address] PCP - General 05/14/12 04/21/17 documented as of this encounter
--- OUTSIDE RECORDS SUMMARY | 2024-08-05 21:28 | XMS_ITS | Encounter Summary ---
Author Organization [facility] Address [facility] [place] [address] Care Team Providers Care Bone Char Kiln Tender Name Role Phone Manolo Castro MD Primary Care Provider [phone] Encounter Details Date Type Department Care Team (Late st Contact Info) Description 07/10/2013 9:28 AM EDT - 07/10/2013 11:59 PM EDT Hospital Encounter XRay at [address] [place] [address] Left hip pain Social History Tobacco Use [...] thigh documented in this encounter Care Teams Bone Char Kiln Tender Relationship Specialty Start Date End Date Manolo Castro MD [address] [place] [address] PCP - General 05/14/12 04/21/17 documented as of this encounter
--- OUTSIDE RECORDS SUMMARY | 2024-08-05 21:28 | XMS_ITS | Encounter Summary ---
Author Organization [facility] Address [address] [place] [address] Care Team Providers Care Electric Refrigerator Servicer Name Role Phone Dominic Restrepo MD Primary Care Provider [phone] Encounter Details Date Type Department Care Team (Late st Contact Info) Description 05/09/2020 Lab Requisition [facility] Pathology & Laboratory Medicine - [address] [address] Lewis Henderson MD [address] [place] [address] [place], [place] [address] Encounter for other general examination Social History [...] sections x3 examined (A3, A4). 05/13/2020 16:04 [facility] Diagnosis Comment Immunoperoxidase stains [...] to perform high complexity clinical laboratory testing. Charge Machine Operator slides of this case were reviewed at the intradepartmental consultation conference (NF, ). 05/13/2020 16:04 [facility] Attestation There was significant resident/fellow involvement in the diagnostic evaluation of this case. By the signature below, the attending physician certifies that they have personally conducted a gross and/or microscopic examination of the described specimens and rendered or confirmed the above diagnosis. 05/13/2020 16:04 [facility] at [address] COLON [...] ?? 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 A. [...] A8- Distal surgical margin 05/13/2020 16:[address] [facility] Resident/Fell ow: Wally Herron MD 05/13/2020 16:[address] [facility] Performing Lab [facility] 05/13/2020 16:[address] [facility] Scanned Images 05/13/2020 16:[address] [facility] Tissue ENTIRE SIGMOID COLON / Unknown 05/09/2020 12:30 EDT 05/09/2020 23:38 EDT Lewis Henderson MD PATHOLOGY ORDERA ALYSHA [facility] [address] [place] [address] documented in this encounter Visit Diagnoses Diagnosis Encounter for other general examination documented in this encounter Care Teams Electric Refrigerator Servicer Relationship Specialty Start Date End Date Dominic Restrepo MD [address] [place] [address] PCP - General 01/20/20 documented as of this encounter
--- OUTSIDE RECORDS SUMMARY | 2024-08-05 21:28 | XMS_ITS | Encounter Summary ---
Author Organization [facility] Address [facility] [place] [address] Care Team Providers Care Turbine Measurements Engineer Name Role Phone Manolo Castro MD Primary Care Provider [phone] Reason for Visit * Reason Comments Left Hip Pain hip pain Encounter Details Date Type Department Care Team (Late st Contact Info) Description 07/10/2013 10:05 AM EDT Office Visit [place] [address] Momo Blount MD [facility] [place] [address] Hip arthritis (Primary Dx) Discharge Disposition: Home [...] thigh documented in this encounter Care Teams Turbine Measurements Engineer Relationship Specialty Start Date End Date Manolo Castro MD [address] [place] [address] PCP - General 05/14/12 04/21/17 documented as of this encounter
--- OUTSIDE RECORDS SUMMARY | 2024-08-05 21:28 | XMS_ITS | Encounter Summary ---
Author Organization [facility] Address [facility] [place] [address] Care Team Providers Care Tableau Analyst Name Role Phone Manolo Castro MD Primary Care Provider [phone] Reason for Visit * Reason Onset Date Comments Follow-up 12/14/2013 Encounter Details Date Type Department Care Team (Late Contact Info) Description 12/14/2013 Telephone [place] [address] Narda Allen, DIAMOND WHEEL EDGER [facility] [place] [address] Follow-up Social History Tobacco Use Types Packs/Day [...] on filedocumented in this encounter Care Teams Tableau Analyst Relationship Specialty Start Date End Date Manolo Castro MD [address] [place] [address] PCP - General 05/14/12 04/21/17 documented as of this encounter
--- OUTSIDE RECORDS SUMMARY | 2024-08-05 21:28 | XMS_ITS | Encounter Summary ---
Author Organization [facility] Address [facility] [place] [address] Care Team Providers Care Jewelry Mechanic Name Role Phone Manolo Castro MD Primary Care Provider [phone] Encounter Details Date Type Department Care Team (Latest Contact Info) Description 12/25/2013 7:43 AM EDT - 12/25/2013 1:38 PM EDT Hospital Encounter [place] [address] Wally Pfeiffer MD [facility] [place] [address] Discharge Disposition: Home Social History Tobacco Use [...] occurs, please contact your MD/ Please call [phone] before 5pm with problems, questions or concerns. After 5pm call [phone] and ask to speak with the wool hat finisher building construction foreman. Discharge instructions reviewed with patient who expresses understanding. * Attachments The following attachments cannot be sent through Care Everywhere. * EGD (UPPER ENDOSCOPY) : POST-OP (BRITISH) documented in this encounter Medications at Time [...] has currently had full participation in the [facility] and meets NIH criteria [...] majority of our 40 minutes today in [id number] conversation regarding various treatment options for obesity [...] GI ENDOSCOPY (12/25/2013 9:36 AM EDT) Pathologist [facility] UPPER GI ENDOSCOPY [facility] ___ Patient Name: Eugene Rueda ? Procedure Date: 12/25/2013 9:36 AM ? Date of : 1950 ? Age: 63 ? Order #: [id number] ? ___ Procedure: ? Upper GI endoscopy Indications: ? Preoperative assessment for bariatric ? surgery, Assessment following [place] ? fundoplication Providers: ? Wally Pfeiffer MD, Flavia Schneider ? FRACISCO Bueno, Julienne Pabon, ? Oracle Architect Referring : ?Manolo Castro MD Medicines: ? [...] Procedure Code(s): ?? --- Professional --- ? [address], Upper gastrointestinal ? endoscopy including esophagus, ? [...] specified pre-operative ? examination CPT (R) 2012 [employer]. All Rights Reserved. The codes documented in this report are preliminary and upon supervisor paste plant review may be revised to meet current [...] Watson) documented in this encounter Care Teams Jewelry Mechanic Relationship Specialty Start Date End Date Manolo Castro MD [address] [place] [address] PCP - General 05/14/12 04/21/17 documented as of this encounter
--- OUTSIDE RECORDS SUMMARY | 2024-08-05 21:28 | XMS_ITS | Clinical Summary ---
Author Organization [facility] Address [address] [place] [address] Care Team Providers Care Rope Making Machine Operator Name Role Phone Dominic Restrepo MD Primary Care Provider [phone] Social History Tobacco Use Types Packs/Day Years [...] C Antibody Negative Negative 10/12/2021 10:10 EST [facility] Blood VENOUS BLOOD / Unknown 10/11/2021 9:25 EST 10/11/2021 21:22 EST Provider Outr Resulting Lab CHEMISTRY & BLOOD GAS ORDERABLES [facility] [address] [place] [address] from Last 3 Months or Most Recently Relevant to Health Maintenance Care Teams Rope Making Machine Operator Relationship Specialty Start Date End Date Dominic Restrepo MD [address] [place] [address] PCP - General 01/20/20
--- OUTSIDE RECORDS SUMMARY | 2024-08-05 21:28 | XMS_ITS | Encounter Summary ---
Author Organization [facility] [place] [address] Care Team Providers Care Screen Printing Paster Name Role Phone Manolo Castro MD Primary Care Provider [phone] Encounter Details Date Type Department Care Team (Late st Contact Info) Description 12/01/2013 1:40 PM EST Office [place] [address] Narda Allen APRN [facility] [place] [address] Wally Pfeiffer MD [facility] [place] [address] Obesity (Primary Dx) Discharge Disposition: Home Social [...] has currently had full participation in the [facility] B[facility] and meets NIH criteria [...] majority of our 40 minutes today in [id number] conversation regarding various treatment options for obesity [...] unspecified documented in this encounter Care Teams Screen Printing Paster Relationship Specialty Start Date End Date Manolo Castro MD [address] [place] [address] PCP - General 05/14/12 04/21/17 documented as of this encounter
--- OUTSIDE RECORDS SUMMARY | 2024-08-05 21:28 | XMS_ITS | Encounter Summary ---
Author Organization [facility] Address [address] [place] [address] Care Team Providers Care Electrical Foreman Name Role Phone Dominic Restrepo MD Primary Care Provider [phone] Encounter Details Date Type Department Care Team (Late st Contact Info) Description 03/03/2021 Lab Requisition [facility] Pathology & Laboratory Medicine - [facility] [address] [place] [address] Tamir Osuna MD [address] [place] [address] [place] [address] Encounter for other general examination [...] Name Priority Date/Time Associated Diagnosis Comments NON STARTER MECHANIC/FNA CYTOLOGY Today 03/02/2021 8:47 EDT Encounter for other general examination documented in this encounter Results * NON STARTER MECHANIC/FNA CYTOLOGY (03/02/2021 8:47 EDT) Final Diagnosis URINE, CATHETERIZED, CYTOLOGIC EVALUATION: - Negative for high grade urothelial carcinoma. 03/03/2021 14:35 EDT [facility] Attestation By the signature below, the attending physician certifies that they have personally conducted a gross and/or microscopic examination of the described specimens and rendered or confirmed the above diagnosis. 03/03/2021 14:35 EDT [facility] at 1435 Clinical History Bladder cancer 03/03/2021 14:35 EDT [facility] Gross Description A. 60ccs of clear yellow fluid, of which 60ccs are composed of fixative, were received and processed by selective cellular enhancement technique. 03/03/2021 14:35 EDT [facility] Performing Lab [facility] 03/03/2021 14:35 EDT [facility] Scanned Images 03/03/2021 14:35 [facility] Fluid URINE SPECIMEN COLLECTION, CATHETERIZED / Unknown 03/02/2021 8:47 EDT 03/03/2021 7:16 EDT Tamir Osuna MD PATHOLOGY ORDERAB LES Performing Organization Address City/State/[facility] Co de Phone Number [facility] [address] [place] [address] documented in this encounter Visit Diagnoses Diagnosis Encounter for other general examination documented in this encounter Care Teams Electrical Foreman Relationship Specialty Start Date End Date Dominic Restrepo MD [address] [place] [address] PCP - General 01/20/20 documented as of this encounter
--- OUTSIDE RECORDS SUMMARY | 2024-08-05 21:28 | XMS_ITS | Encounter Summary ---
Author Organization [facility] Address [facility] [place] [address] Care Team Providers Care Certified Juvenile Probation Officer Name Role Phone Manool Castro MD Primary Care Provider Encounter Details Date Type Department Care Team (Late st Contact Info) Description 12/25/2013 9:36 AM EDT Anesthesia [place] [address] Demetrio Gutierrez MD [facility] [place] [address] Anesthesia Record Procedure Summary Procedure Name Responsible [...] Type Details Placement Removal Peripheral IV Line ([place], NICU) - Single Lumen 12/25/13; 0909; 12/25/13; [...] OR MULTIPLE performed by Wally Pfeiffer MDat [facility] History Substance Use Topics ??? [...] discussed with patient whom. Plan discussed with SUPERVISOR METAL HANGING. Misc. Assessment: documented in this encounter Plan [...] mg documented in this encounter Care Teams Certified Juvenile Probation Officer Relationship Specialty Start Date End Date Manolo Castro MD [address] [place] [address] PCP - General 05/14/12 04/21/17 documented as of this encounter
--- OUTSIDE RECORDS SUMMARY | 2024-08-05 21:28 | XMS_ITS | Encounter Summary ---
Author Organization [facility] Address [address] [place] [address] Care Team Providers Care Health And Wellness Sales Consultant Name Role Phone Dominic Restrepo MD Primary Care Provider [phone] Encounter Details Date Type Department Care Team (Late st Contact Info) Description 09/19/2020 Lab Requisition [facility] Pathology & Laboratory Medicine - [address] [address] Tamir Osuna MD [address] [place] [address] Encounter for other general examination Social [...] Name Priority Date/Time Associated Diagnosis Comments NON FIRE POT OPERATOR/FNA CYTOLOGY Today 09/16/2020 11:15 EST Encounter for other general examination documented in this encounter Results * NON FIRE POT OPERATOR/FNA CYTOLOGY (09/16/2020 11:15 EST) Final Diagnosis URINE, VOIDED, CYTOLOGIC EVALUATION: - Negative for high grade urothelial carcinoma. - Acute inflammation and bacteria noted. 09/20/2020 9:11 EST [facility] Attestation There was significant resident/fellow involvement in the diagnostic evaluation of this case. By the signature below, the attending physician certifies that they have personally conducted a gross and/or microscopic examination of the described specimens and rendered or confirmed the above diagnosis. 09/20/2020 9:11 [facility] at 0911 Clinical History Bladder cancer 09/20/2020 9:11 [facility] Gross Description A. 120ccs of clear yellow fluid, of which 60ccs are composed of fixative, were received and processed by selective cellular enhancement technique. 09/20/2020 9:11 [facility] Resident/Dm w: Shilpi Velazco MD 09/20/2020 9:11 [facility] Performing Lab [facility] 09/20/2020 9:11 [facility] Scanned Images 09/20/2020 9:11 [facility] Urine VOIDED URINE SPECIMEN / Unknown 09/16/2020 11:15 EST 09/19/2020 6:38 EST Tamir Osuna MD PATHOLOGY ORDERAB LES [facility] [address] [place] [address] documented in this encounter Visit Diagnoses Diagnosis Encounter for other general examination documented in this encounter Care Teams Health And Wellness Sales Consultant Relationship Specialty Start Date End Date Dominic Restrepo MD [address] [facility] [place] [address] PCP - General 01/20/20 documented as of this encounter
--- OUTSIDE RECORDS SUMMARY | 2024-08-05 21:28 | XMS_ITS | Encounter Summary ---
Author Organization [facility] Address [address] [place] [address] Care Team Providers Care Knitting Inspector Name Role Phone Dominic Restrepo MD Primary Care Provider [phone] Encounter Details Date Type Department Care Team (Late st Contact Info) Description 03/28/2020 Lab Requisition [facility] Pathology & Laboratory Medicine - [address] [address] Lewis Henderson MD [address] [place] [address] [place], [place] [address] Encounter for other general examination Social History [...] - Fragments of tubular adenoma(s). [facility]2 Attestation By the signature below, the attending physician certifies that they have 1) personally conducted a gross and/or microscopic examination of the described specimen(s), and/or personally interpreted the results of laboratory testing of the described specimen(s), and 2) personally rendered or confirmed the above diagnosis. 03/29/2020 13:23 [facility] at 1322 Clinical History H/O colon polyps 03/29/2020 13:23 [facility] Gross Description A. Received [...] D1. Vanessa Sam 03/28/2020 16:30 03/29/2020 13:23 [facility] Scanned Images 03/29/2020 13:23 [facility] Tissue ENTIRE SIGMOID COLON / Unknown 03/28/2020 10:27 EDT 03/28/2020 16:06 EDT Tissue specimen (specimen) TRANSVERSE COLON STRUCTURE / Unknown 03/28/2020 10:27 EDT 03/28/2020 16:06 EDT Tissue specimen (specimen) SIGMOID COLON STRUCTURE / Unknown 03/28/2020 10:27 EDT 03/28/2020 16:06 EDT Tissue specimen (specimen) SIGMOID COLON STRUCTURE / Unknown 03/28/2020 10:27 EDT 03/28/2020 16:06 EDT Lewis Henderson MD PATHOLOGY ORDERA [facility] [address] [place] [address] documented in this encounter Visit Diagnoses Diagnosis Encounter for other general examination documented in this encounter Care Teams Knitting Inspector Relationship Specialty Start Date End Date Dominic Restrepo MD [address] [place] [address] PCP - General 01/20/20 documented as of this encounter
--- OUTSIDE RECORDS SUMMARY | 2024-08-05 21:28 | XMS_ITS | Encounter Summary ---
Author Organization [facility] Address [address] [place] [address] Care Team Providers Care Pallet Repairer Name Role Phone Dominic Restrepo MD Primary Care Provider [phone] Encounter Details Date Type Department Care Team (Late st Contact Info) Description 10/11/2021 Lab Requisition [facility] Pathology & Laboratory Medicine - [facility] [address] [place], [place] [address] Outr Resulting Lab, Provider Social History Tobacco [...] 4th Generation Negative Negative 10/12/2021 10:21 EST [facility] Comment:If acute HIV-1 infec tion is suspected in a high risk patient, submit plasma specimen for HIV-1 RNA quantitation test. Blood VENOUS BLOOD / Unknown 10/11/2021 9:25 EST 10/11/2021 21:22 EST Narrative [facility] - 10/12/2021 10:21 EST Fourth Generation assay performed on the Siemens Centaur XPT. Provider Outr Resulting Lab IMMUNOLOGY A ND SEROLOGY ORDERABLES [facility] [address] [place] [address] documented in this encounter Visit Diagnoses Not on filedocumented in this encounter Care Teams Pallet Repairer Relationship Specialty Start Date End Date Dominic Restrepo MD [address] [place] [address] PCP - General 01/20/20 documented as of this encounter
--- OUTSIDE RECORDS SUMMARY | 2024-08-05 21:28 | XMS_ITS | Encounter Summary ---
Author Organization [facility] Address [address] [place] [address] Care Team Providers Care Cloth Finishing Range Back Tender Name Role Phone Dominic Restrepo MD Primary Care Provider [phone] [phone] Encounter Details Date Type Department Care Team (Late st Contact Info) Description 05/06/2020 Lab Requisition [facility] Pathology & Laboratory Medicine - [facility] [address] [place] [address] Outr Resulting Lab, Provider Social History Tobacco [...] in accordance with CLIA regulations, College of [employer]ologists (CAP) guidelines (Dec 24, 2019), and FDA guidance (Dec 05, 2019). This test is only for use under the Food and Drug Administration's Emergency Use Authorization. Swab ENTIRE NASOPHARYNX / Unknown 05/06/2020 10:29 EDT 05/06/2020 15:55 EDT Provider Outr Resulting Lab MICROBIOLOGY - GENERAL ORDERABLES [facility] [place], [place] * COVID-19 TESTING (05/06/2020 10:29 EDT) COVID-19 rt-PCR Result NEGATIVE Negative 05/08/2020 0:11 EDT [facility] Comment: 2019-novel Coronavirus (2019-nCoV) not [...] in accordance with CLIA regulations, College of [employer] Pathologists (CAP) guidelines (Dec 24, 2019), and FDA guidance (Dec 05, 2019). This test is only for use under the Food and Drug Administration's Emergency Use Authorization. Performing Lab [facility] 05/08/2020 0:11 EDT [facility] Swab 05/06/2020 10:2 9 EDT 05/06/2020 15:55 EDT Provider Outr Resulting Lab MICROBIOLOGY - GENERAL ORDERABLES [facility] [address] [place] [address] [facility] [place], [place] documented in this encounter Visit Diagnoses Not on filedocumented in this encounter Care Teams Cloth Finishing Range Back Tender Relationship Specialty Start Date End Date Dominic Restrepo MD [address] [place] [address] PCP - General 01/20/20 documented as of this encounter
--- OUTSIDE RECORDS SUMMARY | 2024-08-05 21:28 | XMS_ITS | Encounter Summary ---
Author Organization [facility] Address [facility] [place] [address] Care Team Providers Care Vice President Of Compliance Name Role Phone Manolo Castro MD Primary Care Provider [phone] Reason for Referral * Physical Therapy (Routine) - Closed Specialty Diagnoses / Procedures Referred By Sonal dawson Referred To Contact Physical Therapy Diagnoses Varicose veins Flavia Chavez MD [facility] HEMATOLOGY [place] [address] [facility] [place] [address] Referral ID Status Reason Start Date Expiration Date V isits Requested Visits Authorized [id number] Closed Evaluate and Treat 11/18/2013 05/17/2014 1 1 Reason for Visit * Reason Comments Schedule Office Case Encounter Details Date Type Department Care Team (Latest Contact Info) Description 11/18/2013 9:30 AM EST Office Visit Hematology [place] [phone] Flavia Chavez MD [facility] HEMATOLOGY AND ONCOLOGY [place], [place] [id number] Pre-op exam (Primary Dx); Varicose veins; Morbid [...] Maxwell MD - 11/18/2013 9:20 AM EST [facility] Department of Medicine [place] [address] [facility] THROMBOSIS CONSULTATION DATE [...] years. He denies any history of stroke, TN. No history of DVT or PE. 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 His [id number] score is 2 for his DM and HTN.The adjust stroke rate/year is about 2.2%. He is considered to be at low risk of thromboembolic event from his atrial fibrillation with [id number] score of 2 during the interruption of [...] the change of my recommendation with his underground truck operator Dr. Fong and Paresh Allen APRN who [...] anticoagulants documented in this encounter Care Teams Vice President Of Compliance Relationship Specialty Start Date End Date Manolo Castro MD [address] [place] [address] PCP - General 05/14/12 04/21/17 documented as of this encounter
--- OUTSIDE RECORDS SUMMARY | 2024-08-05 21:28 | XMS_ITS | Encounter Summary ---
Author Organization [facility] Address [address] [place] [address] Care Team Providers Care Gusset Folder Name Role Phone Dominic Restrepo MD Primary Care Provider [phone] Encounter Details Date Type Department Care Team (Late st Contact Info) Description 11/10/2020 Lab Requisition [facility] Pathology & Laboratory Medicine - [address] [address] Outr Resulting Lab, Provider Social History Tobacco [...] Outr Resulting Lab MICROBIOLOGY - GENERAL ORDERABLES [facility] [address] [place] [address] * COVID-19 TESTING (11/10/2020 9:19 EST) COVID-19 rt-PCR Result Negative Negative 11/11/2020 15:24 EST [facility] Comment: This test has not [...] developed and its performance characteristics determined by [facility]. It has not been cleared or [...] This test is based on the [facility] COVID-19 Emergency Use Authorization (EUA) assay, with minor modification as defined by the FDA Performed on the InterStelNeto 7 Flex RT-PCR System. Performing Lab [facility] 11/11/2020 15:24 EST [facility] Swab 11/10/2020 9:19 EST 11/10/2020 18:00 EST Provider Outr Resulting Lab MICROBIOLOGY - GENERAL ORDERABLES [facility] [address] [place] [address] documented in this encounter Visit Diagnoses Not on filedocumented in this encounter Care Teams Gusset Folder Relationship Specialty Start Date End Date Dominic Restrepo MD [address] [place] [address] PCP - General 01/20/20 documented as of this encounter
--- OUTSIDE RECORDS SUMMARY | 2024-08-05 21:28 | XMS_ITS | Referral Summary ---
Author Organization [facility] Address [address] [place] [address] Care Team Providers Care Culinary Artist Name Role Phone Dominic Restrepo MD Primary Care Provider [phone] Social History Tobacco Use Types Packs/Day Years [...] C Antibody Negative Negative 10/12/2021 10:10 EST [facility] Blood VENOUS BLOOD / Unknown 10/11/2021 9:25 EST 10/11/2021 21:22 EST Provider Outr Resulting Lab CHEMISTRY & BLOOD GAS ORDERABLES [facility] [address] [place] [address] from Last 3 Months or Most Recently Relevant to Health Maintenance Care Teams Culinary Artist Relationship Specialty Start Date End Date Dominic Restrepo MD [address] [place] [address] PCP - General 01/20/20
--- OUTSIDE RECORDS SUMMARY | 2024-08-05 21:28 | XMS_ITS | Encounter Summary ---
Author Organization [facility] Address [facility] [place] [address] Care Team Providers Care Data Entry Technician Name Role Phone Manolo Castro MD Primary Care Provider [phone] Reason for Visit * Reason Comments Other Encounter Details Date Type Department Care Team ([facility] Contact Info) Description 11/20/2013 Telephone Cardiology at [address] [address] Luis M Fong MD [facility] [place] [address] Social History Tobacco Use Types Packs/Day Years [...] on filedocumented in this encounter Care Teams Data Entry Technician Relationship Specialty Start Date End Date Manolo Castro MD [address] [place] [address] PCP - General 05/14/12 04/21/17 documented as of this encounter
--- OUTSIDE RECORDS SUMMARY | 2024-08-05 21:28 | XMS_ITS | Encounter Summary ---
Author Organization [facility] Address [address] [place] [address] Care Team Providers Care Marine Services Technician Name Role Phone Dominic Restrepo MD Primary Care Provider [phone] Encounter Details Date Type Department Care Team (Late st Contact Info) Description 01/04/2021 Lab Requisition [facility] Pathology & Laboratory Medicine - [address] [address] Lewis Henderson MD [address] [place] [address] [place], [place] [address] Encounter for other general examination Social History [...] xanthogranulomatous inflammation. - Cholelithiasis. 01/09/2021 11:27 EDT [facility] Attestation By the signature below, the attending physician certifies that they have 1) personally conducted a gross and/or microscopic examination of the described specimen(s), and/or personally interpreted the results of laboratory testing of the described specimen(s), and 2) personally rendered or confirmed the above diagnosis. 01/09/2021 11:27 EDT [facility] at 1127 Clinical History Chronic cholecystitis with calculus 01/09/2021 11:27 EDT [facility] Gross Description A. Received in [...] 2.4 x 0.7 cm) is present. Three apprenticeship training representative sections and the en face cystic duct margin are submitted in A1 and A2. KAY BRIONES(ASCP) 01/05/2021 9:18 01/09/2021 11:27 EDT [facility] Performing Lab [facility] 01/09/2021 11:27 T [facility] Scanned Images 01/09/2021 11:27 T [facility] Tissue ENTIRE GALLBLADDER / Unknown 01/04/2021 8:57 EDT 01/04/2021 15:26 EDT Lewis Henderson MD PATHOLOGY ORDERA ALYSHA [facility] [address] [place] [address] documented in this encounter Visit Diagnoses Diagnosis Encounter for other general examination documented in this encounter Care Teams Marine Services Technician Relationship Specialty Start Date End Date Dominic Restrepo MD [address] [place] [address] PCP - General 01/20/20 documented as of this encounter
--- OUTSIDE RECORDS SUMMARY | 2024-08-05 21:28 | XMS_ITS | Encounter Summary ---
Author Organization [facility] Address [facility] [place] [address] Care Team Providers Care Ladies Locker Room Attendant Name Role Phone Manolo Castro MD Primary Care Provider [phone] Encounter Details Date Type Department Care Team (Latest Contact Info) Description 11/18/2013 2:09 PM EST - 11/18/2013 11:59 PM EST Hospital Encounter Non-[place] [address] CARDIO, ECHO SIXTY MIN APPT None Luis M Fong MD [facility] [place] [address] Atrial fibrillation Discharge Disposition: Home Social History [...] Transthoracic(Leb) (11/18/2013 3:14 PM EST) EF 60 [employer] SYSTEM Anatomical Region Laterality Modality Other 11/18/2013 Narrative 11/18/2013 3:46 PM EST Procedure: ? Transthoracic Echocardiogram Patient: ? YANIV Lopez ?(Age): 1950(62) Med Rec#: ?[id number] ? Sex: ?M ? Site Loc: ?[facility] ? Ht / Wt: ??175.3(cm)/112.4 Pt. Loc: ? Echo Lab ? BSA: ?2.26 Study Date: ?11/18/2013 ? Pt. Type: Outpatient Tape: ? Referring: Luis M Fong Aircraft Powertrain Repairer: [employer] Clinical Mental Health Counselor: Milka Hope Diagnosis: ??Atrial Fibrillation (427.31) CPT Code(s): ??Echo Full (35659), ??Spectral Doppler (58709), ??Color Doppler (85384), ??Definity (11038SK), Indication(s):Rhythm: HR ?BP ?152/74 ?? SUMMARY: 1. [...] ? Mid-Inferior ?Normal ? Mid-Inferoseptal ?Normal ? [place]-Septal ? Normal ? [place]-Anterior ? Normal ? [place]-Lateral ?Normal ? [place]-Inferior ? Normal ? [place]-Tip ?Normal ? Chambers ?Value ?Units (Range) ? [...] 11/18/2013 15:45:20 Images reviewed and interpretation verified [facility] Ultrasound [facility] Procedure Note Moris Hargrove MD - 11/18/2013 Procedure: Transthoracic Echocardiogram Patient: YANIV LADD(Age): 1950(62) Med Rec#: [id number] Sex: M Site Loc: [facility] Ht / Wt: 175.3(cm)/112.4 Pt. Loc: Echo Lab BSA: 2.26 Study Date: 11/18/2013 Pt. Type: Outpatient Tape: Referring: Luis M Fong Aircraft Powertrain Repairer: TONY Clinical Mental Health Counselor: Milka Hope Diagnosis: Atrial Fibrillation (427.31) CPT Code(s): Echo Full (85867), Spectral Doppler (09322), Color Doppler (84347), Definity (08653MA), Indication(s):Rhythm: HR BP 152/74 SUMMARY: 1. Technically [...] Normal Mid-Posterolateral Normal Mid-Inferior Normal Mid-Inferoseptal Normal [place]-Septal Normal [place]-Anterior Normal [place]-Lateral Normal [place]-Inferior Normal [place]-Tip Normal Chambers Value Units (Range) LV EF [...] 11/18/2013 15:45:20 Images reviewed and interpretation verified [facility] Luis M Fong MD [...] mLs documented in this encounter Care Teams Ladies Locker Room Attendant Relationship Specialty Start Date End Date Manolo Castro MD [address] [place] [address] PCP - General 05/14/12 04/21/17 documented as of this encounter
--- OUTSIDE RECORDS SUMMARY | 2024-08-05 21:28 | XMS_ITS | Encounter Summary ---
Author Organization Formerly [facility] Address [facility] [place] [place] [address] Care Team Providers Care A/C Technician Name Role Phone Manolo Castro MD Primary Care Provider [phone] Encounter Details Date Type Department Care Team (Late st Contact Info) Description 12/11/2013 9:30 AM EST - 12/11/2013 10:00 AM EST [place] [address] Misty De Guzman MD [facility] [place] [address] UPPER GASTROINTESTINAL ENDOSCOPY,WITH BIOPSY SINGLE OR MULTIPLE [...] occurs, please contact your MD/ Please call [phone] before 5pm with problems, questions or concerns. After 5pm call [phone] and ask to speak with the business segment manager disaster recovery consultant. Discharge instructions reviewed with patient who expresses understanding. * Attachments The following attachments cannot be sent through Care Everywhere. * UPPER GI ENDOSCOPY: WHAT TO EXPECT AT HOME (STATELESS) documented in this encounter Medications at Time [...] has currently had full participation in the [facility] Bariatric Surgery Program and [...] majority of our 40 minutes today in [id number] conversation regarding various treatment options for obesity [...] (12/11/2013 10:10 AM EST) Final Diagnosis ? [facility] ? Provider: ?? MISTY DE GUZMAN ??Pt. Name: ?? EUGENE PURVIS ? Acc #: ?[id number] ?Pt. ? Col Date: ?? 12/11/2013 ?/Sex: [...] ? Question Abarca's 12/15/2013 10:06 AM EDT [facility] GI Biopsy 12/11/2013 10:1 0 AM EST 12/11/2013 10:10 AM EST Misty De Guzman MD PATHOLOGY/CYTOLOGY ORDERABLES Performing Organization Address City/State/[facility] Co de Phone Number DERICK MILLENNIUM [facility] [place] [address] * Specimen to Pathology (surgical or derm) (12/11/2013 10:10 AM EST) AP Specimen 12/11/2013 10:1 0 AM EST 12/11/2013 10:10 AM EST Narrative DERICK MURPHY - 12/11/2013 10:10 AM EST Specimen requisition ordered. ??Separate Pathology report to follow Misty De Guzman MD PATHOLOGY/CYTOLOGY ORDERABLES DERICK MURPHY * UPPER GI ENDOSCOPY (12/11/2013 9:31 AM EST) UPPER GI ENDOSCOPY [facility] Endoscopy Patient Name: Eugene Purvis ? Procedure Date: 12/11/2013 9:31 AM ? N: [id number] ? Date of : 1950 ? Age: 62 ? Order #: [id number] ? Procedure: ? Upper GI endoscopy Indications: ? Preoperative assessment for bariatric ? surgery, Assessment following Ronnell ? fundoplication Providers: ? Misty De Guzman MD, Nora ? Noy, RN, Milka Baez, ? Reeling Machine Operator Referring MD: ?Manolo Castro MD Medicines: ? [...] GENERAL SURGICAL ORD ERABLES Performing Organization Address City/[facility] Co de Phone Number [facility] * POCT Glucose (12/11/2013 8:59 AM EST) Glucose, POC 172 60 - 199 mg/dL [facility] Comment: Supplemental ranges: <110 mg/dL before meals <200 mg/dL all other times of the day Blood specimen (specimen) 12/11/2013 8:59 AM EST 12/11/2013 8:59 AM EST Misty De Guzman MD POINT OF CARE TEST ORDERABLES Performing Organization Address [facility] de Phone Number [facility] documented in this encounter Visit Diagnoses Not [...] RN) documented in this encounter Care Teams A/C Technician Relationship Specialty Start Date End Date Manolo Castro MD [address] [place] [id number] PCP - General 05/14/12 04/21/17 documented as of this encounter
--- OUTSIDE RECORDS SUMMARY | 2024-08-05 21:28 | XMS_ITS | Encounter Summary ---
Author Organization [facility] Address [facility] [place] [address] Care Team Providers Care Transaction Coordinator Name Role Phone Manolo Castro MD Primary Care Provider [phone] Encounter Details Date Type Department Care Team (Late st Contact Info) Description 06/30/2013 Orders Only [place] [address] Momo Blount MD [facility] [place] [address] Left hip pain (Primary Dx) Social History [...] thigh documented in this encounter Care Teams Transaction Coordinator Relationship Specialty Start Date End Date Manolo Castro MD [address] [place] [address] PCP - General 05/14/12 04/21/17 documented as of this encounter
--- OUTSIDE RECORDS SUMMARY | 2024-08-05 21:28 | XMS_ITS | Encounter Summary ---
Author Organization [facility] Address [address] [place] [address] Care Team Providers Care Assistant Producer Name Role Phone Dominic Restrepo MD Primary Care Provider [phone] Encounter Details Date Type Department Care Team (Late st Contact Info) Description 02/04/2020 Lab Requisition [facility] - [address] [address] Tamir Osuna MD [address] [place] [phone] Encounter for other general examination Social [...] comment and synoptic report. 02/10/2020 19:43 EDT [facility] at 1943 Attestation By the signature below, the attending physician certifies that they have 1) personally conducted a gross and/or microscopic examination of the described specimen(s), and/or personally interpreted the results of laboratory testing of the described specimen(s), and 2) personally rendered or confirmed the above diagnosis. 02/10/2020 19:43 [facility] at 1943 Diagnosis Comment A HMWK stain shows no evidence of invasion into the lamina propria. Song Plugger slides of this case were reviewed at the intradepartmental consultation conference. Immunoperoxidase stains were performed on this case to further characterize the lesion. ANTIBODY(CLONE)(BLO CK):RESULT Keratin 34BE12 (34BE12, Kenel) (A2): negative for invasion into lamina propria. [...] performance characteristics have been determined by [facility] and/or by the referring laboratory. [...] high complexity clinical laboratory testing. 02/10/2020 19:43 [facility] Synoptic URINARY BLADDER: Biopsy [...] Epithelial Lesions: ?None identified 02/10/2020 19:43 EDT [facility] Clinical History Bladder tumor 02/10/2020 19:43 EDT [facility] Gross Description A. Received in formalin labelled with proper patient identification (initials G, D) and bladder tumor is a 1.6 x 1.4 x 0.5 cm aggregate of medina cauterized, friable tissue fragments. Entirely submitted in A1-A3. 02/05/2020 7:48 02/10/2020 19:43 EDT [facility] Scanned Images 02/10/2020 19:43 EDT [facility] Tissue URINARY BLADDER BIOPSY SPECIMEN / Unknown 02/04/2020 11:14 EDT 02/04/2020 16:17 EDT Tamir Osuna MD PATHOLOGY ORDERAB LES [facility] [address] [place] [address] documented in this encounter Visit Diagnoses Diagnosis Encounter for other general examination documented in this encounter Care Teams Assistant Producer Relationship Specialty Start Date End Date Dominic Restrepo MD [address] [place] [address] PCP - General 01/20/20 documented as of this encounter
--- OUTSIDE RECORDS SUMMARY | 2024-08-05 21:28 | XMS_ITS | Encounter Summary ---
Author Organization [facility] Address [facility] [place] [address] Care Team Providers Care Workday Senior Associate Name Role Phone Maonlo Castro MD Primary Care Provider [phone] Encounter Details Date Type Department Care Team (Latest Contact Info) Description 05/14/2012 6:57 AM EDT - 05/14/2012 11:59 PM EDT Hospital Encounter XRay at [address] [place] [address] S/P knee replacement Social History Tobacco Use [...] means documented in this encounter Care Teams Workday Senior Associate Relationship Specialty Start Date End Date Manolo Castro MD [address] [place] [address] PCP - General 05/14/12 04/21/17 documented as of this encounter
--- OUTSIDE RECORDS SUMMARY | 2024-08-05 21:28 | XMS_ITS | Encounter Summary ---
Author Organization [facility] Address [facility] [place] [address] Care Team Providers Care Reed Fixer Name Role Phone Manolo Castro MD Primary Care Provider [phone] Encounter Details Date Type Department Care Team (Late st Contact Info) Description 05/14/2012 7:30 AM EDT Office [place] [address] Radha Sanders APRN [facility] [address] [place] [address] Knee joint replacement by other means (Primary [...] are well acquainted. 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 A very [...] Primary documented in this encounter Care Teams Reed Fixer Relationship Specialty Start Date End Date Manolo Castro MD [address] [place] [address] PCP - General 05/14/12 04/21/17 documented as of this encounter
--- OUTSIDE RECORDS SUMMARY | 2024-08-05 21:28 | XMS_ITS | Encounter Summary ---
Author Organization Formerly [facility] [place] [address] Care Team Providers Care Extension Work Instructor Name Role Phone Manolo Castro MD Primary Care Provider [phone] Encounter Details Date Type Department Care Team (Late st Contact Info) Description 07/28/2013 Notes [place] [address] Narda Allen APRN [facility] [place] [address] Social History Tobacco Use Types Packs/Day Years [...] on filedocumented in this encounter Care Teams Extension Work Instructor Relationship Specialty Start Date End Date Manolo Castro MD [address] [place] [address] PCP - General 05/14/12 04/21/17 documented as of this encounter
--- OUTSIDE RECORDS SUMMARY | 2024-08-05 21:28 | XMS_ITS | Encounter Summary ---
Author Organization [facility] Address [facility] [place] [address] Care Team Providers Care Boatbuilder Apprentice Wood Name Role Phone Manolo Castro MD Primary Care Provider [phone] Reason for Referral * Consultation (Routine) - Closed Specialty Diagnoses / Procedures Referred By Sonal dawson Referred To Contact Hematology and Oncology Diagnoses Morbid obesity Venous stasis Chronic anticoagulation Narda Allen [facility] [place] [address] Darlene Barrientos MD [facility] [place] [address] Referral ID Status Reason Start Date Expiration Date V isits Requested Visits Authorized [id number] Closed Assume Subset of Care 11/08/2013 05/07/2014 1 1 * Consultation (Routine) - Closed Specialty Diagnoses / Procedures Referred By Contac t Referred To Contact Cardiology Diagnoses Morbid obesity Hypertension Type 2 diabetes mellitus Obstructive sleep apnea (adult) (pediatric) Hyperlipidemia Chronic anticoagulation Narda Allen [facility] [place] [address] [facility] [address] [place] [phone] Referral ID Status Reason Start Date Expiration Date V isits Requested Visits Authorized [id number] Closed Assume Subset of Care 11/08/2013 05/07/2014 1 1 Reason for Visit * Reason Comments Morbid Obesity Bariatric Surgery Pr lexi preoperative visit #1 Encounter Details Date Type Department Care Team (Latest Contact Info) Description 11/03/2013 9:00 AM EST Office [place] [address] Narda Allen [facility] [address] Morbid obesity; Hypertension; Type 2 diabetes mellitus; [...] BARIATRIC SURGERY PROGRAM FIRST VISIT Contact information: [facility] Admin coordinator Tracy: [phone] Dietitian: [phone] Surgeons/ nurse practitioner: [phone] Nurse line: [phone] Recommendations to do list after today's visit: [...] take place in the General Surgery Clinic, Services Delivery Driver Area 4L 2nd visits with dietitian and nurse practitioner ([facility]- Shared Medical Appointment) Surgical consultation Pre-op class: [...] of starch = 1 slice toast, ?? Montenegrin muffin, ?? cup cooked potato, rice, or [...] in advance of approval. Only the OR surgical scheduler can provide you with a date. Questions for your doctor, specialist or pharmacist: Ask your doctor about medication suggestions if you currently take medications that are larger than the size of a tylenol. Large pills need to be crushed (if permitted by the drug client customer manager) or taken in liquid form for TWO [...] He has attended a Introduction to the [facility] Bariatric Surgery Program seminar, a comprehensive two hour meeting that provides a program overview, education on bariatric surgeries offered at [facility], risks and benefits, as well as patient expectations and follow up, in July 2013. [facility] Bariatric Surgery Program Educational seminars viewed: 3, in September 2013. Grades on post-testin-90%. The BSP Educational Handbook is provided at visit #1. 2. Pre-operative programmatic evaluations: PCP evaluation and letter of support to proceed with surgery, BSP labwork and psychological evaluation 3. Bariatric Surgery Program evaluations with RD and FORMS ANALYST: today. 4. Weight history: 195 pounds on 07/09/2002, 218 pounds on 09/06/05, 246 pounds on 09/06/08, 246 pounds on 08/14/10, 257 pounds on 08/19/13, 255 pounds on 07/10/13. Current weight: 257 pounds HT 68.8 in 5. Gallbladder status: Believed to be intact, per patient, although notes from PCP indicate prior cholecystectomy 6. Insurer specific requirements: Medicare part A, [place] and [place]- 3 months of supervised counseling 7. BSP Team meeting discussion: Indication: age >60 8. Next steps in pathway: ?? Additional testing/ consultations as determined as needed to be determined at today's visit. ?? If all [facility] requirements and testing have been completed: surgical [...] weight loss have been unsuccessful in the mcc. Refer to nutrition note by [facility] dietitian for weight and dieting history, 24 hour dietary intake and recent dietary changes. Motivating factors for seeking surgery for bariatric surgery: see RD note Patient research in addition to attendance at [facility] Bariatric Surgery Informational meeting and online Educational [...] circular mesh (11.4 cm in diameter) at [facility] 10/15/2012 ??? Vasectomy ??? Right carpal tunnel [...] 2. Psychological evaluation done by Michael Hayes [facility] following sessions on 07/30 and 09/07/13:no [...] Residence/ marital status:Eugene is , lives in [place], [place]. His youngest son, who is disabled, lives with him. He has 2 other adult sons and one grandson named Chandana who lives in [place]. Plans for post-operative support: son Support persons viewed information on bariatric surgery: no Education/ Occupation: HS school, and some college. 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 Hobbies/Activities: swimming at [place] over the winter months, fishing, going to [...] of treatment of obesity and of the [facility] Bariatric Surgery Program: Mr.. Purvis is aware that other treatments for obesity are available, ie, dietary, behavior modification, weight loss medications, exercise as well as surgical weight loss methods. The risks and benefits of bariatric surgery, including gastric bypass, adjustable gastric banding and sleeve gastrectomy are discussed at every Introduction to the [facility] Bariatric Surgery Program meeting and all Educational Seminars, and will be reviewed in detail at the second pre- operative visit. The importance of incorporating lifestyle activity and regular exercise, such as walking, or swimming, after discussion and approval by his primary animal care attendant, prior to surgery, as well as post-operatively, was stressed. He is aware of our programmatic approach which includes four bariatric surgeons, as well as a dietitian and nurse practitioner. Mandatory requirements include: 1. attendance at a two hour Introduction to the [facility] Bariatric Surgery Program seminar 2. view 3 [...] thoroughly research bariatric surgery, via the internet, the[facility] website at [email or web address], books, and journals. In addition, information on bariatric surgery is available at the [employer] Library at [facility]. Assessment/ Plan: 62 y.o. year old male [...] psychological evaluation. Information given to patient: 1. [facility] Bariatric Surgery Education Handbook, a 102 page document (revision July 2013) which contains extensive information regarding pre and post- operative care including: a copy of the Patient Agreement, illustrations of GI anatomy and gastric bypass, gastric banding and sleeve gastrectomy surgeries, [facility] Rehab Medicine recommendations and exercises prior to [...] encouraged - 2nd visits with RD and FORMS ANALYST Questions regarding [facility] Bariatric Surgery Program patients: please call Shayy Allen APRN at [phone] or [phone] beeper [phone][address] * Rowan Deutsch RD - 11/02/2013 9:27 [...] states. Biggest support is his son Momo. 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 Motivating Factors for Seeking Weight Loss Surgery: ?? [x] Improved Health ?? [ ] corporate services manager weight loss ?? [x] Improved quality of [...] weekend went to gym and pool at [facility] near his home- may ultimately get a membership. Dieting History: Type of Diet Wt Lost (lbs.) Wt. Regain (lbs.) Dates Duration Comments Atkins 0 0 Early 1989's Can't remember [place] 10 12 1979's 3 months Health Coaching 9 0 2012 For past 12 months, currently following [facility] nurse that calls once a month- sets [...] through dieting have been unsuccessful over the corporate services manager. Patient has made lifestyle changes since attending [...] of starch = 1 slice toast; ?? Montenegrin muffin; 1 small vianey or wrap; ?? [...] surgery, s/p paraesophagal hernia repair and Afsaneh [id number]. Check integrity of wrap and evaluate for [...] T4 0.72(L) 0.90 - 1.60 ng/dL CERNER Proclivity SystemsENNIUM Blood specimen (specimen) 11/03/2013 10:21 AM EST 11/03/2013 10:37 AM EST Narrative Resulting Agency Comment Spec In Lab Wally Pfeiffer MD CHEMISTRY ORDERABLE S Performing Organization Address [facility] Co de Phone Number Life With LindaIUM * T Uptake (11/03/2013 10:21 AM EST) T Uptake 1.16 0.80 - 1.30 ratio CERNER MILLENNIUM Comment: Tup assay is directly proportional to Thyroid binding protein concentration, thus FT4 Index = TT4/Tup. Blood specimen (specimen) 11/03/2013 10:21 AM EST 11/03/2013 10:37 AM EST Narrative Resulting Agency Comment Spec In Lab Wally Pfeiffer MD CHEMISTRY ORDERABLE S Performing Organization Address City/[facility]/ZIP Co de Phone Number [facility] LindaIUM * Gamma GT (11/03/2013 10:21 AM EST) Gamma Glutamyl Transferase 27 8 - 61 unit/L CERWALDO MILLENNIUM Blood specimen (specimen) 11/03/2013 10:21 AM EST 11/03/2013 10:28 AM EST Narrative Resulting Agency Comment Spec In Lab Wally Pfeiffer MD CHEMISTRY ORDERABLE S Performing Organization Address City/[facility]/ZIP Co de Phone Number DERICK KRAFTIUM * (ABNORMAL) TSH (11/03/2013 10:21 AM EST) Thyroid Stimulating Hormone 4.30(H) 0.27 - 4.20 mcIU/mL DERICK KRAFTIUM Blood specimen (specimen) 11/03/2013 10:21 AM EST 11/03/2013 10:28 AM EST Narrative Resulting Agency Comment Spec In Lab Wally Pfeiffer MD CHEMISTRY ORDERABLE S Performing Organization Address [facility] de Phone Number DERICK KRAFTIUM * Uric acid (11/03/2013 10:21 AM EST) Uric Acid 6.3 3.5 - 8.5 mg/dL DERICK KRAFTIUM Blood specimen (specimen) 11/03/2013 10:21 AM EST 11/03/2013 10:28 AM EST Narrative Resulting Agency Comment Spec In Lab Wally Pfeiffer MD CHEMISTRY ORDERABLE S Performing Organization Address City/[facility] Co de Phone Number DERICK KRAFTIUM * Folate, serum (11/03/2013 10:21 AM EST) Folate 12.3 4.6 - 34.8 ng/mL DERICK KRAFTIUM Blood specimen (specimen) 11/03/2013 10:21 AM EST 11/03/2013 10:28 AM EST Narrative Resulting Agency Comment Spec In Lab Wally Pfeiffer MD CHEMISTRY ORDERABLE S Performing Organization Address City/[facility] Co de Phone Number DERICK KRAFTIUM * Vitamin B12 (11/03/2013 10:21 AM EST) Vitamin B12 701 207 - 974 pg/mL [facility] Blood specimen (specimen) 11/03/2013 10:21 AM EST 11/03/2013 10:28 AM EST Narrative Resulting Agency Comment Spec In Lab Wally Pfeiffer MD CHEMISTRY ORDERABLE S Performing Organization Address [facility]/State/ZIP Co de Phone Number [facility] * VIT D Total Evaluation (11/03/2013 10:21 AM EST) Vitamin D Total 25 OH 46 30 - 100 ng/mL [facility] Comment: Deficient <10 ng/mL Insufficient 10 to [...] MD CHEMISTRY ORDERABLE S Performing Organization Address [facility]/ZIP Co de Phone Number [facility] * PTH (11/03/2013 10:21 AM EST) Parathyroid Hormone 40 15 - 65 pg/mL [facility] Blood specimen (specimen) 11/03/2013 10:21 AM EST 11/03/2013 10:28 AM EST Narrative Resulting Agency Comment Spec In Lab Wally Pfeiffer MD CHEMISTRY ORDERABLE S Performing Organization Address [facility]/State/ZIP Co de Phone Number CERNER JEFFREYENNIUM * Vitamin A (11/03/2013 10:21 AM EST) Vitamin A (FEBRUARY) 49.8 32.5 - 78.0 mcg/dL CERNER MILLENNIUM Comment: Test Performed by: [place] [address] Citrus Fruit Packer: Bronwyn Seals, Ph.D. Blood specimen (specimen) 11/03/2013 10:21 AM EST 11/03/2013 11:28 AM EST Narrative Resulting Agency Comment Spec In Lab Wally Pfeiffer MD LAB SEND OUT ORDERA BLES Performing Organization Address [facility] Co de Phone Number CERWALDO MURPHYENNIUM * Ferritin (11/03/2013 10:21 AM EST) Ferritin 118 30 - 400 ng/mL CERNER MILLENNIUM Comment: Pediatric reference ranges not verified at [facility], interpret with caution. Reference ranges for females greater than 50 years of age approach values for men, i.e., 30-400 ng/mL. Blood specimen (specimen) 11/03/2013 10:21 AM EST 11/03/2013 10:28 AM EST Narrative Resulting Agency Comment Spec In Lab Wally Pfeiffer MD CHEMISTRY ORDERABLE S Performing Organization Address [facility]/ZIP Co de Phone Number CERWALDO MURPHYENNIUM * [...] (ABNORMAL) Hemoglobin A1c (11/03/2013 10:21 AM EST) [facility] Signature Hemoglobin A1c 7.9(H) <=5.6 % PRIYANKA Dipak [facility] Comment: As of 2013 the methodology for [...] Mellitus, Diabetes Care 2013; 36: Suppl. 1, S67-36 Estimated Average Glucose 180 mg/dL DERICK [facility] Comment: eAG equivalents for HbA1c percentages: [...] into estimated average glucose values. ??Diabetes Care 2008:31(8):0796-3770. Blood specimen (specimen) 11/03/2013 10:21 AM EST 11/03/2013 10:28 AM EST Narrative Resulting Agency Comment Spec In Lab Wally Pfeiffer MD CHEMISTRY ORDERABLE S [facility] * Comprehensive metabolic panel (non-fasting) (11/03/2013 10:21 AM EST) Glucose 155 60 - 199 mg/dL CERNER MILLENNIUM Comment:Diabetes: >=200 mg/d L plus symptoms Blood Urea Nitrogen 19 10 - 20 mg/dL CERNER MILLENNIUM Creatinine 0.98 0.80 - 1.50 mg/dL CERNER MILLENNIUM Comment: Please note that the pediatric reference intervals supplied above were not validated at [facility]. Results from pediatric patients should be interpreted [...] surgery documented in this encounter Care Teams Boatbuilder Apprentice Wood Relationship Specialty Start Date End Date Manolo Castro MD [address] [place] [id number] PCP - General 05/14/12 04/21/17 documented as of this encounter
--- OUTSIDE RECORDS SUMMARY | 2024-08-05 21:28 | XMS_ITS | Encounter Summary ---
Author Organization [facility] [place] [address] Care Team Providers Care Cashier Credit Name Role Phone Manolo Castro MD Primary Care Provider [phone] Encounter Details Date Type Department Care Team (Late st Contact Info) Description 11/18/2013 12:30 PM EST Office Visit Hematology [place] [address] Rashida Marc, PT [facility] PHYSICAL MEDICINE & [place] [address] Manolo Castro MD [address] [place], [place] [id number] Other problems of limbs (Primary Dx) Discharge [...] daily. 3. Decreased pain and swelling Therapy Correction Goals: ongoing 1. maintain reduction in swelling & pain. INITIAL TREATMENT INCLUDED: Evaluation and fitting of garments. Pt to benefit from wearing knee highs 20-30 size L and XL depending on sock. Pt would like to try ordering L from [employer] padded athletic sock. He willdo this on [...] Primary documented in this encounter Care Teams Cashier Credit Relationship Specialty Start Date End Date Manolo Castro MD [address] [place] [address] PCP - General 05/14/12 04/21/17 documented as of this encounter
--- OUTSIDE RECORDS SUMMARY | 2024-08-05 21:28 | XMS_ITS | Encounter Summary ---
Author Organization [facility] Address [facility] [place] [address] Care Team Providers Care Office Services Associate Name Role Phone Manolo Castro MD Primary Care Provider [phone] Encounter Details Date Type Department Care Team (Latest Contact Info) Description 12/23/2013 7:57 AM EDT - 12/23/2013 11:59 PM EDT Hospital En[place] [id number] CLINIC, DR SHADI Pfeiffer, Wally Garcia MD [facility] [place] [address] Delayed gastric emptying; Type 2 diabetes mellitus; [...] <10%) Impression Normalgastric emptying. Wally Pfeiffer MD [facility] [place] ORDER[place]LES documented in this encounter Visit Diagnoses Diagnosis Delayed gastric emptying Dyspepsia and other specified disorders of function of stomach Type 2 diabetes mellitus Type II or unspecified type diabetes mellitus without mention of complication, not stated as uncontrolled GERD (gastroesophageal reflux disease) Esophageal reflux documented in this encounter Care Teams Office Services Associate Relationship Specialty Start Date End Date Manolo Castro MD [address] [place] [address] PCP - General 05/14/12 04/21/17 documented as of this encounter
--- OUTSIDE RECORDS SUMMARY | 2024-08-05 21:28 | XMS_ITS | Encounter Summary ---
Author Organization [facility] Address [facility] [place] [address] Care Team Providers Care Director East Coast Sales Name Role Phone Manolo Castro MD Primary Care Provider [phone] Encounter Details Date Type Department Care Team (Late st Contact Info) Description 11/18/2013 1:10 PM EST Office Visit Cardiology at [address] [address] Luis M Fong MD [facility] 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 He takes the [employer] [facility] [place]. He walks about 1 mile two [...] ? YANIV Lopez ?(Age): 1950(62) Med Rec#: ?[id number] ? Sex: ?M ? [place] [place] Ht / Wt: ??175.3(cm)/112.4 Pt. Loc: ? Echo Lab ? BSA: ?2.26 Study Date: ?11/18/2013 ? Pt. Type: Outpatient Tape: ? Referring: Luis M Fong Accounts Payable Clerk: [employer] Cargo Checker: Milka Hope Diagnosis: ??Atrial Fibrillation (427.31) CPT Code(s): ??Echo Full (93184), ??Spectral Doppler (75081), ??Color Doppler (47660), ??Definity (22626HG), Indication(s):Rhythm: HR ?BP ?152/74 ?? SUMMARY: 1. [...] ? Mid-Inferior ?Normal ? Mid-Inferoseptal ?Normal ? Blue Eye-Septal ? Normal ? Blue Eye-Anterior ? Normal ? Blue Eye-Lateral ?Normal ? Blue Eye-Inferior ? Normal ? Blue Eye-Tip ?Normal ? Chambers ?Value ?Units (Range) ? [...] 11/18/2013 15:45:20 Images reviewed and interpretation verified [facility] Cardiac Ultrasound Laboratory Procedure Note Moris Hargrove MD - 11/18/2013 Procedure: Transthoracic Echocardiogram Patient: YNAIV LADD(Age): 1950(62) Med Rec#: [id number] Sex: M [place] [facility] Ht / Wt: 175.3(cm)/112.4 Pt. Loc: Echo Lab BSA: 2.26 Study Date: 11/18/2013 Pt. Type: Outpatient Tape: Referring: Luis M Fong Accounts Payable Clerk: [employer] Cargo Checker: Milka Hope Diagnosis: Atrial Fibrillation (427.31) CPT Code(s): Echo Full (63467), Spectral Doppler (38141), Color Doppler (32067), Definity (18328KQ), Indication(s):Rhythm: HR BP 152/74 SUMMARY: 1. Technically [...] Normal Mid-Posterolateral Normal Mid-Inferior Normal Mid-Inferoseptal Normal Blue Eye-Septal Normal Blue Eye-Anterior Normal Blue Eye-Lateral Normal Blue Eye-Inferior Normal Blue Eye-Tip Normal Chambers Value Units (Range) LV EF [...] Tricuspid/Pulmonic Valves Value Units (Range) TR peak czear 2.7 m/sec RAP 5 mmHg RVSP/PASP 34 mmHg This report has been electronically signed by: Moris Hargrove MD 11/18/2013 15:45:20 Images reviewed and interpretation verified [facility] Cardiac Ultrasound Laboratory Luis M Fong MD ECHO ORDERABLES * EKG 12 Lead (11/18/2013 1:19 PM EST) Ventricular rate 103 BPM MUSE SYSTEM Atrial Rate 131 BPM MUSE SYSTEM QRS Duration 86 ms MUSE SYSTEM Q-T Interval 306 ms MUSE SYSTEM QTC Calculated (Bezet) 400 ms MUSE SYSTEM Calculated R [place] 67 degrees MUSE SYSTEM Calculated T [place] 13 degrees MUSE SYSTEM INTERPRETATION Atrial fibrillation Low voltage QRS Abnormal ECG When compared with ECG of 09-JUL-2002 08:57, Atrial fibrillation has replaced Sinus rhythm Vent. rate has increased BY ??34 BPM Nonspecific T wave abnormality now evident in Inferior leads I personally reviewed the tracing and edited the fellows interpretation Confirmed by fellow MD Wilbert, Jose Francisco Lucas ([id number]) on 11/19/2013 9:00:46 AM Confirmed by MD Tho, Sj ([id number]) on 11/19/2013 1:43:46 PM MUSE SYSTEM 11/18/2013 1:19 PM EST 11/19/2013 1:43 PM EST Luis M Fong MD ECG ORDERABLES MUSE SYSTEM documented in this encounter Visit Diagnoses Diagnosis Atrial fibrillation- Primary Atrial fibrillation documented in this encounter Care Teams Director East Coast Sales Relationship Specialty Start Date End Date Manolo Castro MD [address] [place] [address] PCP - General 05/14/12 04/21/17 documented as of this encounter
--- OUTSIDE RECORDS SUMMARY | 2024-08-05 21:28 | XMS_ITS | Encounter Summary ---
Author Organization [facility] Address [facility] [place] [address] Care Team Providers Care Administrative Nursing Supervisor Name Role Phone Manolo Castro MD Primary Care Provider [phone] Encounter Details Date Type Department Care Team (Late st Contact Info) Description 07/08/2013 Orders [place] [address] Momo Blount MD [facility] [place] [address] H/O total knee replacement (Primary Dx) Social [...] means documented in this encounter Care Teams Administrative Nursing Supervisor Relationship Specialty Start Date End Date Manolo Castro MD [address] [place], [place] [id number] PCP - General 05/14/12 04/21/17 documented as of this encounter
--- OUTSIDE RECORDS SUMMARY | 2024-08-05 21:29 | XMS_ITS | Encounter Summary ---
Author Organization [facility] Address [address] [place] [address] Care Team Providers Care Combat Systems Engineer Name Role Phone Unknown, Provider Primary Care Provider Encounter Details Date Type Department Care Team (Late st Contact Info) Description 06/01/2013 Results Only [facility] Laboratory Services - [facility] ([facility] [place] [address], [place] [phone] Manolo Castro MD [address] [facility] [address] [place], [place] [id number] Social History Tobacco Use Types Packs/Day Years [...] ? BRANDYNICOLASEUGENE Boo ? Accession #: ? [id number] ? : ? 1950 (Age: 62) ??M ? Collect Date: ? 06/01/2013 ? Location: ? [facility] ? Receive Date: ? 06/02/2013 ? Provider: MANOLO CASTRO MD Copy to: ? Final Pathologic Diagnosis: SKIN OF HAND, LEFT, PUNCH BIOPSY: - Irregular epidermal hyperplasia with hyperkeratosis. ??See microscopic and comment. 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 ??(Dr. Boyle)/formerly [facility] Microscopic Description: The stratum corneum is thickened by orthohyperkeratosis with foci of parakeratosis and scale crust. ??The epidermis shows marked irregular hyperplasia with elongate and thickened rete ridges. ??The keratinocytes show mild reactive changes with an accentuated granular layer. ??The dermal papillae are widened by thick bundles of collagen oriented in a vertical array. There is mild chronic inflammation. ??(Dr. Boyle)/formerly [facility] Document reviewed and electronically signed by: ZOHRA [...] MD PATHOLOGY ORDERABLES [facility] [address] [place] [address] documented in this encounter Visit Diagnoses Not on filedocumented in this encounter Care Teams Combat Systems Engineer Relationship Specialty Start Date End Date Unknown, Provider, PCP - General 02/08/10 12/02/13 documented as of this encounter
--- OUTSIDE RECORDS SUMMARY | 2024-08-05 21:29 | XMS_ITS | Encounter Summary ---
Author Organization [facility] Address [address] [place] [address] Care Team Providers Care Utility Pipe Layer Name Role Phone Unknown, Provider Primary Care Provider [phone] Encounter Details Date Type Department Care Team (Late st Contact Info) Description 04/04/2012 Results Only [facility] [phone] Laura Galvez, DO [address] [place] [address] Social History Tobacco Use Types [...] ? SANACHAVOEUGENE Boo ? Accession #: ? [id number] ? : ? 1950 (Age: 61) ??M [...] in toto as (C1) and (C2). ??(Yrn Ambrose)/[facility] End of Report [facility] 04/04/2012 04/04/2012 7:5 5 EDT Laura Galvez DO PATHOLOGY ORDERABLES [facility] [address] [place] [address] documented in this encounter Visit Diagnoses Not on filedocumented in this encounter Care Teams Utility Pipe Layer Relationship Specialty Start Date End Date Unknown, Provider, PCP - General 02/08/10 12/02/13 documented as of this encounter
--- OUTSIDE RECORDS SUMMARY | 2024-08-05 21:29 | XMS_ITS | Encounter Summary ---
Author Organization [facility] Address [address] [place] [address] Care Team Providers Care Production Underwriter Name Role Phone Unavailable Primary Care Provider Unavailabl e Encounter Details Date Type Department Care Team (Late st Contact Info) Description 02/07/2010 Results Only [facility] Laboratory Services - [facility] ([facility] [place]) [address] [place] [id number] Lorraine Burger MD [address] [place] [id number] Social History Tobacco Use Types Packs/Day Years [...] ? EUGENE PURVIS ? Accession #: ? [id number] ? : ? 1950 (Age: 59) ??M [...] MD PATHOLOGY ORDERABLES [facility] [address] [place] [address] documented in this encounter Visit Diagnoses Not on filedocumented in this encounter
--- OUTSIDE RECORDS SUMMARY | 2024-08-05 21:29 | XMS_ITS | Encounter Summary ---
Author Organization [facility] Address [address] [place] [address] Care Team Providers Care Beet Flumer Name Role Phone Unknown, Provider Primary Care Provider Encounter Details Date Type Department Care Team (Late st Contact Info) Description 05/12/2002 Results Only [facility] conversion [address] [place] [address] Adis Jordan MD [address] [place] [phone] Social History Tobacco Use Types Packs/Day Years [...] ? TRUNGSACHIKATALINA ManningNIS ? Accession #: ? [id number] ? : ? 1950 (Age: 51) ??M [...] are submitted entirely in one cassette. (Dr. Dominguez)/[facility] End of Report [facility] 05/12/2002 05/12/2002 15: 28 EDT Adis Jordan MD PATHOLOGY ORDERABLES [facility] [address] [place] [address] documented in this encounter Visit Diagnoses Not on filedocumented in this encounter Care Teams Beet Flumer Relationship Specialty Start Date End Date Unknown, Provider, PCP - General 02/08/10 12/02/13 documented as of this encounter
--- OUTSIDE RECORDS SUMMARY | 2024-08-05 21:29 | XMS_ITS | Encounter Summary ---
Author Organization [facility] Address [address] [place] [address] Care Team Providers Care Maternity Nurse Name Role Phone Unknown, Provider Primary Care Provider [phone] Encounter Details Date Type Department Care Team (Latest Contact Info) Description 11/30/2013 9:33 EST - 11/30/2013 23:59 [facility] Hospital Encounter [address] [address] Unknown, Provider, Discharge Disposition: Home or Self Care Social History Tobacco Use Types Packs/Day Years Used Date Smoking Tobacco: Never Assessed Sex and Gender Information Value Date Recorded Sex Assigned at Not on file Gender Identity Not on file Sexual Orientation Not on file documented as of this encounter Discharge Disposition Disposition Code Departure Means Destination Home or Self Custodial documented in this encounter Plan of Treatment Not on file documented as of this encounter Visit Diagnoses Not on filedocumented in this encounter Care Teams Maternity Nurse Relationship Specialty Start Date End Date Unknown, Provider, PCP - General 02/08/10 12/02/13 documented as of this encounter
--- OUTSIDE RECORDS SUMMARY | 2024-08-05 21:29 | XMS_ITS | Patient Health Record ---
Author Organization [facility] Address [address] [place] [address] Care Team Providers Care Water Service Dispatcher Name Role Phone EDILBERTO HEARN Primary Care Provider Unavail able Narciso Gomez [phone] REASON FOR REFERRAL No Information PLAN OF TREATMENT No Information Insurance Providers Payer Name Payer Address Payer Phone Subscriber Number Group Number Insured Name Patient Relationship to Insured Coverage Start Date Coverage End Date [employer] MEDICARE COMPLETE [address] [address] [place] [phone] [id number] MELANIE PURVIS Self - patient is the insured [place] [address] MELANIE PURVIS Self - patient is the insured
--- OUTSIDE RECORDS SUMMARY | 2024-08-05 21:29 | XMS_ITS | Encounter Summary ---
Author Organization [facility] Address [address] [place] [address] Care Team Providers Care Furs Salesperson Name Role Phone Unknown, Provider Primary Care Provider [phone] Encounter Details Date Type Department Care Team (Late st Contact Info) Description 11/30/2013 Results Only [facility] [phone] Karlene Bose MD [address] [place] [phone] Social History Tobacco Use Types Packs/Day Years [...] ? BRANDYNICOLASEUGENE Boo ? Accession #: ? [id number] ? : ? 1950 (Age: 62) ??M [...] Bose MD PATHOLOGY ORDERABLES [facility] [address] [place] [address] documented in this encounter Visit Diagnoses Not on filedocumented in this encounter Care Teams Furs Salesperson Relationship Specialty Start Date End Date Unknown, Provider, PCP - General 02/08/10 12/02/13 documented as of this encounter
--- OUTSIDE RECORDS SUMMARY | 2024-08-05 21:29 | XMS_ITS | Encounter Summary ---
Author Organization [facility] Address [address] [place] [address] Care Team Providers Care Poultry Farm Laborer Name Role Phone Dominic Restrepo MD Primary Care Provider [phone] Encounter Details Date Type Department Care Team (Late st Contact Info) Description 01/21/2020 Lab Requisition [facility] Pathology & Laboratory Medicine - [address] [address] Jolly Perry, HR ADMINISTRATOR [address] [place] [address] [place] [address] Encounter for other general examination [...] Name Priority Date/Time Associated Diagnosis Comments NON PATCH SETTER/FNA CYTOLOGY Today 01/20/2020 9:30 EDT Encounter for other general examination documented in this encounter Results * NON PATCH SETTER/FNA CYTOLOGY (01/20/2020 9:30 EDT) Final Diagnosis URINE, VOIDED, CYTOLOGIC EVALUATION: - Rare atypical urothelial cells present. 01/21/2020 17:40 EDT [facility] at 1740 Diagnosis Comment Cytologic evaluation reveals rare atypical urothelial cells with nuclear enlargement and superimposed degenerative changes. Acute inflammation and red blood cells are also present. The scant and degenerative nature of these atypical urothelial cells precludes further characterization. Associate Marketing Manager slides of this case were reviewed at the intradepartmental consultation conference. 01/21/2020 17:40 EDT [facility] Clinical History Gross hematuria 01/21/2020 17:40 T [facility] Attestation By the signature below, the attending physician certifies that they have personally conducted a gross and/or microscopic examination of the described specimens and rendered or confirmed the above diagnosis. 01/21/2020 17:40 EDT [facility] at 1740 Gross Description 60 ccs of clear yellow fluid (with and additional 60 ccs of Cytolyt added) were received and processed by selective cellular enhancement technique. 01/21/2020 17:40 T [facility] Scanned Images 01/21/2020 17:40 T [facility] Urine VOIDED URINE SPECIMEN / Unknown 01/20/2020 9:30 EDT 01/21/2020 8:10 EDT Jolly Perry NP PATHOLOGY ORDERABLES [facility] [address] [place] [address] documented in this encounter Visit Diagnoses Diagnosis Encounter for other general examination documented in this encounter Care Teams Poultry Farm Laborer Relationship Specialty Start Date End Date Dominic Restrepo MD [address] [place] [address] PCP - General 01/20/20 documented as of this encounter
[2024-08-05] MEDS: Lidocaine 2% Jelly 6 ML SYR (22:20)
== END 2024-08-05 22:33 | disposition home or self-care (01) ==
PROVIDERS: Emergency Provider Physician Assistant; PCP Family Medicine
DX: T83.028A Displacement of other urinary catheter, initial encounter (principal); I10 Essential (primary) hypertension; E11.9 Type 2 diabetes mellitus without complications; I48.91 Unspecified atrial fibrillation; G30.9 Alzheimer's disease, unspecified; F02.80 Dementia in other diseases classified elsewhere, unspecified severity, without behavioral disturbance, psychotic disturbance, mood disturbance, and anxiety; Z79.01 Long term (current) use of anticoagulants; Z79.84 Long term (current) use of oral hypoglycemic drugs; Z86.73 Personal history of transient ischemic attack (TIA), and cerebral infarction without residual deficits
CPT/HCPCS: 99283

== ENCOUNTER 2024-10-20 14:06 | Outpatient (REF) | payer MEDICARE, SELFPAY ==
[2024-10-20 13:55] LABS: Bilirubin Negative (Negative); Blood Small (Negative); Clarity Cloudy (Clear); Glucose Negative (Negative); Ketones Negative (Negative); Leukocyte Esterase Moderate (Negative); Nitrite Negative (Negative); Urobilinogen 0.2 mg/dL (Up to 0.2); pH 5.5 (5-8)
[2024-10-20 14:04] LABS: Bacteria Few HPF (Negative); C & S Indicated? Yes; Casts Negative LPF (Negative); Crystals Negative HPF (Negative); Epithelial Cells Few HPF (Negative); Mucus Negative (Negative)
== END 2024-10-20 14:07 | disposition home or self-care (01) ==
LOC: LBN 14:06
PROVIDERS: PCP Family Medicine; Visit Provider Family Medicine
DX: N39.0 Urinary tract infection, site not specified (principal); R82.89 Other abnormal findings on cytological and histological examination of urine
CPT/HCPCS: 87077; 81003; 81015; 87086; 87186

== ENCOUNTER 2024-11-25 15:01 | Outpatient (REF) | payer MEDICARE, SELFPAY ==
[2024-11-25 20:50] LABS: Abs Immature Grans 0.02 10^3/uL (0.0-0.06); Absolute Basophil Count 0.05 10^3/uL (0.0-0.2); Absolute Eosinophil Count 0.17 10^3/uL (0.0-0.7); Absolute Lymphocyte Count 1.16 10^3/uL (1.2-3.4); Absolute Monocyte Count 0.63 10^3/uL (0.1-0.8); Absolute Neutrophil Count 5.55 10^3/uL (1.2-6.7); Basophils % 0.7 %; Eosinophils % 2.2 %; HCT 35.6 % (40.0-50.0); HGB 11.1 g/dL (13.5-17.5); Immature Grans % 0.3 %; Lymphocytes % 15.3 %; MCH 25.9 pg (27.0-33.0); MCHC 31.2 % (32.0-36.0); MCV 83 fL (80-95); MPV 9.2 fL (8.0-11.0); Monocytes % 8.3 %; Neutrophils % 73.2 %; Platelet Count 262 10^3/uL (130-400); RBC 4.28 10^6/uL (4.36-5.78); RDW 15.9 % (11.8-14.1); RDW-SD 48.9 fL; WBC 7.58 10^3/uL (4.4-10.8)
[2024-11-25 21:00] LABS: ALT 21 U/L (16-63); AST 14 U/L (15-37); Albumin 3.4 g/dL (3.4-5.0); Alkaline Phosphatase 100 U/L (46-116); BUN 29 mg/dL (7-18); Bilirubin, Total 0.47 mg/dL (0.2-1.0); CREATININE 1.6 mg/dL (0.70-1.30); Calcium 8.7 mg/dL (8.5-10.1); Chloride 105 mmol/L (98-107); Estimated GFR 44.93 (mL/min/1.73m2); Glucose 157 mg/dL (74-106); Sodium 140 mmol/L (136-145); Total Protein 6.4 g/dL (6.4-8.2)
[2024-11-25 21:04] LABS: COMMENT (LAB VIEW ONLY) 29.83 mg/dL
[2024-11-25 21:13] LABS: Microalb ug/mg Crea 332.2 ug/mg Cr
== END 2024-11-25 15:02 | disposition home or self-care (01) ==
LOC: NCHCN 15:01
PROVIDERS: PCP Family Medicine; Visit Provider Family Medicine
DX: I10 Essential (primary) hypertension (principal); E11.9 Type 2 diabetes mellitus without complications
CPT/HCPCS: 80053; 82043; 82570; 85025

== ENCOUNTER 2025-03-08 21:02 | Emergency (ER) | payer MEDICARE, SELFPAY ==
[2025-03-08] VITALS (14 sets, daily range): BP systolic 143; BP diastolic 83; PULSE 68–98; RESP 14–23; O2SAT 95–100
--- NOTE | 2025-03-08 21:00 | RT.EKG_ITS ---
APPROVED REPORT Exam: Resting ECG Reason for Exam: SOB Patient Location: E HR:68 bpm ECG Measurements Heart Rate 68 AXIS OK [id number] P [id number] QRSd 103 QRS 56 QT 471 T 38 QTc 501 Conclusion Atrial fibrillation...? atrial activity Low voltage, extremity and precordial leads...extremity<0.5mV, precordial<1.0mV Consider anteroseptal infarct...Q >30mS, dimin R, V1-V2 Prolonged QT interval...QTc >500mS I have reviewed and interpreted ECG and agree with software generated interpretation.
--- NOTE | 2025-03-08 21:41 | ED.GENADUL_ITS ---
Discharge Plan Discharge Details Chief Complaint: SOB Primary Care Provider: David Massey ED Provider: Yuliet White Home Meds and New Rx's Prescriptions: No Action metformin 1,000 mg tablet 1,000 mg PO BID polyethylene glycol 3350 [Miralax] 17 gram/dose powder 17 g PO DAILY PRN atorvastatin 40 mg tablet 40 mg PO DAILY metoprolol tartrate 50 mg tablet 50 mg PO BID (DME) pen needle, diabetic [BD Ultra-Fine Claribel Pen Needle] 32 gauge x 5/32 needle See Rx Instructions .Route Rx Instructions: As directed (DME) Dexcom G7 It Risk And Assurance Senior Manager Misc See Rx Instructions .Route Rx Instructions: As directed (DME) Dexcom G7 Sensor Device See Rx Instructions .Route Rx Instructions: As directed nystatin [Nystop] 100,000 unit/gram powder 1 applic topical BID (DME) blood sugar diagnostic Strip See Rx Instructions .Route Rx Instructions: As directed (DME) lancets 33 gauge misc See Rx Instructions .Route Rx Instructions: As directed (DME) OneTouch Ultra Test Strip See Rx Instructions .Route Rx Instructions: As directed Eliquis 5 mg tablet 5 mg PO BID Qty: 180 3RF levetiracetam 500 mg tablet 500 mg PO BID Qty: 180 3RF furosemide 20 mg tablet 20 mg PO DAILY Patient Comments: Take 1 tablet by mouth every morning Dr. Cuellar- Cardiology lisinopril 5 mg tablet 5 mg PO DAILY diltiazem HCl 120 mg capsule,extended release 24hr 120 mg PO BID levothyroxine 50 mcg tablet 50 mcg PO DAILY Patient Comments: Take 1 tablet by mouth once a day Take on an empty stomach 30 minutes before breakfast or other medications HPI General Date/Time Provider Initiated Documentation: 03/08/25 21:16 . HPI Narrative: Eugene is a 74-year-old male who presented to the emergency department today accompanied by his son for evaluation of an episode of shortness of breath. Eugene has a history of CVA and sundowning, arrived to the emergency department unable to provide history. Son was able to provide details. Son reports episode at 1900 hours lasting an hour in which Eugene reported that he had difficulty breathing but denied any other accompanying symptoms such as chest pain. Son Rip reports that this looked like he was having a panic attack, said that he did not have any difficulty breathing or increased work of breathing observed during this episode. No chest pain, dizziness, gait disturbances, perspiration, recent signs of illness Irhinorrhea, pharyngitis, or cough), change in appetite/hydration, bowel and bladder function. History of atrial fibrillation, on Eliquis. No history of IA, COPD, or lung disease. Never smoked, no alcohol use. Limited mobility, uses walker, no change in respiratory effort during ambulation. Urinary catheter due to voiding issues, possibly prostate- related. No known malignancies, urine normal. Stroke 2 years ago. Related Data Home Medications ?Medication ?Instructions ?Recorded ?Confirmed furosemide 20 mg tablet 20 mg PO DAILY 06/01/21 12/15/24 metformin 1,000 mg tablet 1,000 mg PO BID 01/23/22 12/15/24 levothyroxine 50 mcg tablet 50 mcg PO DAILY 12/03/22 12/15/24 atorvastatin 40 mg tablet 40 mg PO DAILY 12/31/22 12/15/24 metoprolol tartrate 50 mg tablet 50 mg PO BID 04/29/23 12/15/24 lisinopril 5 mg tablet 5 mg PO DAILY 01/28/24 12/15/24 blood sugar diagnostic 02/21/24 12/15/24 blood sugar diagnostic (OneTouch 02/21/24 12/15/24 Ultra Test strips) blood-glucose sensor (Dexcom G7 02/21/24 12/15/24 Sensor device) blood-glucose,house painting instructor,cont 02/21/24 12/15/24 (Dexcom G7 It Risk And Assurance Senior Manager) lancets 33 gauge 02/21/24 12/15/24 nystatin 100,000 unit/gram topical 1 applic topical BID 02/21/24 12/15/24 powder (Nystop) pen needle, diabetic 32 gauge x 02/21/24 12/15/24/32 (BD Ultra-Fine Claribel Pen Needle) diltiazem HCl 120 mg 120 mg PO BID 02/24/24 12/15/24 capsule,extended release 24 hr polyethylene glycol 3350 17 17 g PO DAILY PRN 06/25/24 12/15/24 gram/dose oral powder (Miralax) apixaban 5 mg tablet (Eliquis) 5 mg PO BID #180 tabs 07/28/24 12/15/24 levetiracetam 500 mg tablet 500 mg PO BID #180 tabs 11/17/24 12/15/24 Previous Rx's ?Medication ?Instructions ?Recorded apixaban 5 mg tablet (Eliquis) 5 mg PO BID #180 tabs 07/28/24 levetiracetam 500 mg tablet 500 mg PO BID #180 tabs 11/17/24 Allergies Allergy/AdvReac Type Severity Reaction Status Date / Time No Known Allergies Allergy Verified 08/05/24 21:01 General Stated Complaint: SOB TREVOR: 3 Exam Narrative Exam Narrative: General Appearance: Alert, appears confused but is easily redirected by son. Vital signs: Within normal limits, no tachycardia, tachypnea, or hypoxia. Respiratory: Easy work of breathing, lung sounds clear bilaterally. Cardiovascular: Normal heart sounds, irregularly irregular rhythm. Gastrointestinal: Abdomen soft, nondistended, nontender to palpation. Skin: Warm and dry, no rash. Neurological: Moving all extremities equally Psychiatric: Normal. Course Vital Signs Vital signs: Vital Signs Pulse 74 03/08/25 21:08 Respiratory Rate 18 03/08/25 21:08 Blood Pressure 143/83 H 03/08/25 21:08 Pulse Oximetry 95 03/08/25 21:08 Pulse 74 03/08/25 21:08 Respiratory Rate 18 03/08/25 21:08 Blood Pressure 143/83 H 03/08/25 21:08 Pulse Oximetry 95 03/08/25 21:08 Oxygen Delivery Method Room Air 03/08/25 21:08 Oxygen Flow Rate 0 03/08/25 21:08 Medical Decision Making Initial Assessment: 74-year-old male with subjective shortness of breath, episode started at 1900 hours, lasted an hour. No chest pain, dizziness, or sweating. History of atrial fibrillation, on Eliquis. No recent respiratory infections or changes in baseline health. No history of lung disease. ED Course: - Chest x-ray - EKG shows A-fib, rate 68, no changes consistent with acute ischemia. - Blood work for cardiac markers DDx includes but not limited to: ACS, cardiac arrhythmia/palpitations, anxiety/panic attack, electrolyte imbalance, pneumonia, esophageal spasm. As patient is anticoagulated without accompanying chest pain or vital sign abnormalities, PE unlikely Final Assessment: Shortness of breath episode with no associated chest pain, dizziness, or sweating. History of atrial fibrillation managed with Eliquis. Diagnostic tests including chest x-ray, EKG, and blood work for cardiac markers ordered. Handoff report given to Dr. Jara, pending blood work and radiologist interpretation of chest x-ray MDM Components Evaluation: - Number of Differential Diagnoses or Management Options: Dyspnea - Amount and Complexity of Data Reviewed: Chest x-ray, EKG, blood work for cardiac markers - Risk of Complication and Morbidity or Mortality: Moderate due to history of atrial fibrillation and potential cardiac issues. Patient consented to the use of MARLENE Quality:SDOH Health Related Social Needs: No Data to Display PFSH All Active Problems ACP (advance care planning) (Acute) Caregiver stress (Acute) Financial difficulties (Acute) Need for home health care (Acute) Impaired instrumental activities of daily living (Acute) Deficit in activities of daily living (ADL) (Acute) Frequent UTI (Acute) Palliative care patient (Acute) UTI (urinary tract infection) due to urinary indwelling Romero catheter (Acute) Atrial fibrillation with RVR (Acute) Altered mental state (Acute) Sepsis (Acute) Seizure (Acute) New onset seizure without head trauma (Acute) Global aphasia (Acute) Stroke (Chronic) Dysplastic colon polyp (Acute) Urothelial carcinoma (Acute) 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) Screening for colon cancer (Acute) Recurrent nephrolithiasis (Acute) Medical History UTI (urinary tract infection) Dystrophia unguium Edema, lower extremity Candidiasis of skin Peripheral venous insufficiency Lower urinary tract obstructive syndrome Weakness of both lower extremities Uses self-applied continuous glucose monitoring device Cognitive decline Cerebral infarction Hyperbilirubinemia Cardiomegaly Partial epilepsy 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 Atrial fibrillation with rapid ventricular response Obstructive sleep apnea syndrome (08/10/08) cpap Obstructive uropathy Peripheral neuropathy Venous insufficiency History of depression Iron deficiency CARLOS A on CPAP Hypertension Type 2 diabetes mellitus Dementia Ulcer of hermosillo limited to breakdown of skin Acute kidney injury superimposed on chronic kidney disease Creatinine elevation Elevated WBCs Hyperglycemia Ureterolithiasis Diabetic leg ulcer Phimosis Venous insufficiency (chronic) (peripheral) Bladder cancer Gross hematuria Chronic venous stasis Noncompliance Anxiety (08/10/08) Asbestosis (08/10/08) Asthma (07/08/12) pt. denies this Carpal tunnel syndrome Olecranon bursitis Peripheral neuralgia Atopic conjunctivitis (10/22/13) Benign prostatic hyperplasia (02/25/13) Depressive disorder (02/25/13) Diabetes mellitus (02/25/13) Essential hypertension (06/24/13) Frequency of micturition (01/03/16) Glaucoma (10/22/13) B/L Hyperlipidemia (02/25/13) Hypermetropia (10/22/13) Hypogonadism Idiopathic peripheral neuropathy Low back pain (08/10/08) Nuclear senile cataract (10/22/13) Obesity (08/10/08) Aviva-en-y 02/2014 Osteoarthritis (08/10/08) BILATERAL KNEE replacements Peptic reflux disease (08/10/08) Presbyopia (10/22/13) Pterygium (08/10/08) LEFT EYE Regular astigmatism (10/22/13) Sensorineural hearing loss, bilateral (09/05/17) Tubular adenoma Tubular and tubulovillous adenoma 2011 --suggested repeat 2017 Umbilical hernia (08/18/12) Urgency of urination (01/03/16) Varicose veins of lower extremity (08/10/08) Urinary tract infection Chronic anticoagulation Atrial fibrillation Surgical History S/P laparoscopic-assisted sigmoidectomy Hx of total knee arthroplasty Pt reports he has had a left and right knee repacement. Pt doesnt remember when and thinks he had it done at [facility] Status post cholecystectomy S/P cholecystectomy (~01/04/21) acute hemorrhagic cholecystitis and xanthogranulomatous inflammation S/P partial colectomy (~05/09/20) History of transurethral destruction of bladder lesion S/P colonoscopy Haddad-2011- tubular and tubulovillous polyps Santiago- 2019- sessile serrated with low grade dysplacia, tubullovillous with high grade dysplacia and tubular adenomas Status post abdominoplasty (05/23/16) Status post tonsillectomy Status post total knee replacement B/L Vasectomy Aviva-en-y surgery for weight loss Ronnell Fundoplication Repair of umbilical hernia Laparoscopic Family History Mother Cancer Father Heart disease Sister Cancer Sister No problems noted. Brother Cancer Brother No problems noted. Brother No problems noted. Son No problems noted. Son No problems noted. Son No problems noted. Social History Smoking/Tobacco Use Status: Never Second Hand Exposure: Yes Smoking risk assessment performed?: Yes Alcohol Intake: never Drug use: Never Substance use type: does not use Caregiver/Support person: No Household members: other Details: son Housing: house Communication Needs: None Education Level: high school Do you need help understanding health information?: Never Pets and animals: No Do you think of yourself as: straight/heterosexual Current gender identity: male What is your relationship status?: How often do you talk on the phone with friends or family?: once per week How often do you get together with friends or relatives?: decline to answer How often do you attend denominational or yarsani services?: decline to answer Do you belong to any clubs or organized social groups?: no Panel score (0-1 are the most socially isolated patients): 0 What type of physical activity do you participate in: walking Duration: 15-30 minutes/day Frequency: 1-2 times per week Velia/Yazidi: Gnosticist Special velia needs: No Seatbelt use: always Helmet use: No Drive intox or ride w/intox trackless trolley driver: No Do you feel safe at home: Yes Do you feel safe in your relationship?: Yes
--- NOTE | 2025-03-08 22:15 | DI.RAD_ITS ---
Exam(s) XR CHEST 2V PA LATERAL EXAM: XR CHEST 2V PA LATERAL CLINICAL HISTORY: SOB. TECHNIQUE: 2D digital imaging was performed. COMPARISON: CR XR CHEST 2V PA LATERAL from 01/28/2024 CR XR PORTABLE CHEST AP from 06/09/2024 FINDINGS: 2 views: Cardiomegaly again noted. Mediastinum not widened. There is a significant nodular infiltrate in the left upper lobe now evident, measuring approximately 3 by 3 cm. Also increased markings in the right upper lobe more so than previous. No pulmonary mars ma. No pleural effusions. Wedge compression fracture lower thoracic vertebra is now evident. This was not evident on the lateral view January 2024. IMPRESSION: Cardiomegaly. No pulmonary edema. 3 cm infiltrate versus mass in left upper lobe, more prominent than on 06/09/2024. Follow-up CT scan to rule out neoplasm recommended. There is a 30 percent compression fracture of a lower thoracic vertebral which was not evident on pl ain films of January 2024. DATA REPOSITORY: RADIATION DOSE DELIVERED:
[2025-03-08 22:49] LABS: Bilirubin Negative (Negative); Blood Small (Negative); Clarity Sl Cloudy (Clear); Glucose Negative (Negative); Ketones Negative (Negative); Leukocyte Esterase Small (Negative); Nitrite Negative (Negative); Specific Gravity 1.015 (1.005-1.025); Urobilinogen 0.2 mg/dL (Up to 0.2)
[2025-03-08 22:55] LABS: Bacteria Many HPF (Negative); Crystals Negative HPF (Negative); Epithelial Cells Rare HPF (Negative); Mucus Moderate (Negative); WBC >50 HPF (0-5)
[2025-03-08 22:56] LABS: C & S Indicated? Yes; Casts Negative LPF (Negative)
[2025-03-08 23:36] LABS: Abs Immature Grans 0.02 10^3/uL (0.0-0.06); Absolute Basophil Count 0.03 10^3/uL (0.0-0.2); Absolute Eosinophil Count 0.17 10^3/uL (0.0-0.7); Absolute Lymphocyte Count 1.76 10^3/uL (1.2-3.4); Absolute Monocyte Count 0.88 10^3/uL (0.1-0.8); Basophils % 0.4 %; Eosinophils % 2.2 %; HCT 40.9 % (40.0-50.0); HGB 12.9 g/dL (13.5-17.5); Immature Grans % 0.3 %; Lymphocytes % 22.7 %; MCHC 31.5 % (32.0-36.0); MCV 82 fL (80-95); MPV 9.4 fL (8.0-11.0); Monocytes % 11.3 %; Neutrophils % 63.1 %; Platelet Count 233 10^3/uL (130-400); RBC 4.97 10^6/uL (4.36-5.78); RDW 16.1 % (11.8-14.1); RDW-SD 48.1 fL; WBC 7.76 10^3/uL (4.4-10.8)
[2025-03-08 23:56] LABS: ALT 22 U/L (16-63); AST 25 U/L (15-37); Albumin 4.1 g/dL (3.4-5.0); Alkaline Phosphatase 131 U/L (46-116); Anion Gap 14.1 mmol/L (3-11); BUN 45 mg/dL (7-18); Bilirubin, Total 0.7 mg/dL (0.2-1.0); CO2 22.9 mmol/L (21.0-32.0); CREATININE 1.6 mg/dL (0.70-1.30); Calcium 9.2 mg/dL (8.5-10.1); Chloride 100 mmol/L (98-107); Estimated GFR 44.65 (mL/min/1.73m2); Glucose 171 mg/dL (74-106); Magnesium 2.1 mg/dL (1.8-2.4); NT-proBNP 1869 pg/mL (<300); Potassium 4.6 mmol/L (3.5-5.1); Sodium 137 mmol/L (136-145); Total Protein 8.3 g/dL (6.4-8.2); Troponin I 16 ng/L (<or=76)
[2025-03-09] VITALS: PULSE 86; RESP 18
--- NOTE | 2025-03-09 00:14 | ED.PROG_ITS ---
Date of service: 03/09/25 Time of Service: 00:15 Medical Decision Making Patient was signed out to me by Yuliet. Please refer to her physical exam, HPI, and assessment and plan. At time of signout we are awaiting for chest x- ray results. Laboratory workup had returned and patient shows no white count or bandemia, he has remained hemodynamically stable while here with no hypoxemia. Hemoglobin is stable, electrolytes stable, renal function stable, proBNP at patient's baseline, troponins are normal, EKG shows no evidence of STEMI. Urinalysis shows WBCs, however the patient does have a chronic indwelling Romero catheter. Patient has no nitrites, and only small leuk esterase. Urine will be sent for culture. We were still awaiting x-ray results at time of signout. Shortly after signout, nursing staff informed me that family wanted to discuss leaving. I went and evaluated the patient who demonstrated good hemodynamic stability, no hypoxemia. Patient was demanding to leave. Son was at bedside and was requesting to go home as well. I discussed that we are still waiting the x-ray results, but son was content to have those results called in, and wanted to leave with his father. Understanding this, patient was discharged home. At 1:24 AM chest x-ray results have returned and show evidence of bilateral airspace opacities within the upper lung, concerning for infection versus neoplasm. However I did contact the radiologist, and she had not been able to review the prior x-rays. Upon review of the prior x-rays she does feel that these are relatively unchanged, with potential slight increase in the right, but still the persistent presence of the lesion on the left. As the patient has no hypoxemia, no elevated white count, no tachycardia, no fever, no bandemia or left shift, I do not feel that the symptoms would represent pneumonia. Concern is for potential neoplasm. After results came back and I did contact the son and discussed these findings with him. Her recommendation is for outpatient CT imaging for further lesion differentiation. The patient is DNR/DNI, and son stated that he would review potential options with the patient's primary care provider Dr. Massey. Patient was discharged home. Discussed red flags for which to return. I have extensively reviewed the treatment plan and discharge instructions with the patient and their family. I have addressed all patient concerns at this time. The patient and family was made aware of what symptoms to monitor for that would warrant a return to the emergency department. Discussed the plan with the patient and family, they demonstrate verbal understanding and agreement with our assessment and plan at this time. The documentation in this chart was dictated using kooaba dictation software. Please excuse any dictation errors. FINDINGS: Lungs: A rounded radiopacity is projected over the left upper lung. There is a pulmonary nodule within the right mid upper lung. Pleural spaces: No pleural effusion. No pneumothorax. Heart/Mediastinum: The cardiac silhouette is markedly enlarged, as before. Bones/joints: Unremarkable. IMPRESSION: Bilateral airspace opacities within the upper lungs. Differential considerations include multifocal infection and neoplasm. If further characterization is warranted, CT of the chest could be used. Thank you for allowing us to participate in the care of your patient. Dictated and Authenticated by: Mildred Thakur MD 03/09/2025 12:41 AM Eastern Time ([place] & [place]) Quality:SDOH Health Related Social Needs: No Data to Display Discharge Plan Disposition Patient Disposition: Home Condition: Good Discharge Details Clinical Impression: Encounter for medical assessment, Breath shortness Primary Care Provider: David Massey ED Provider: Buzz Jara Home Meds and New Rx's Prescriptions: No Action metformin 1,000 mg tablet 1,000 mg PO BID polyethylene glycol 3350 [Miralax] 17 gram/dose powder 17 g PO DAILY PRN atorvastatin 40 mg tablet 40 mg PO DAILY metoprolol tartrate 50 mg tablet 50 mg PO BID (DME) pen needle, diabetic [BD Ultra-Fine Claribel Pen Needle] 32 gauge x 5/32 needle See Rx Instructions .Route Rx Instructions: As directed (DME) Dexcom G7 Clean Up Helper Banquet Misc See Rx Instructions .Route Rx Instructions: As directed (DME) Dexcom G7 Sensor Device See Rx Instructions .Route Rx Instructions: As directed nystatin [Nystop] 100,000 unit/gram powder 1 applic topical BID (DME) blood sugar diagnostic Strip See Rx Instructions .Route Rx Instructions: As directed (DME) lancets 33 gauge misc See Rx Instructions .Route Rx Instructions: As directed (DME) OneTouch Ultra Test Strip See Rx Instructions .Route Rx Instructions: As directed Eliquis 5 mg tablet 5 mg PO BID Qty: 180 3RF levetiracetam 500 mg tablet 500 mg PO BID Qty: 180 3RF furosemide 20 mg tablet 20 mg PO DAILY Patient Comments: Take 1 tablet by mouth every morning Dr. Cuellar- Cardiology lisinopril 5 mg tablet 5 mg PO DAILY diltiazem HCl 120 mg capsule,extended release 24hr 120 mg PO BID levothyroxine 50 mcg tablet 50 mcg PO DAILY Patient Comments: Take 1 tablet by mouth once a day Take on an empty stomach 30 minutes before breakfast or other medications Discharge Instructions Instructions: Shortness of breath Additional Instructions: At this time your workup has returned reassuring. Your vital signs have remained stable, and there is no evidence of significant acute pathology in your lungs. If the radiologist sees anything different on the chest x-ray, we will contact you and let you know. If you notice any worsening of your symptoms, or any new symptoms such as vomiting, diarrhea, fever, chills, shortness of breath, chest pain, numbness, weakness, or fainting , please return immediately to the emergency department for reevaluation. Please follow up with your primary care provider as soon as possible for reassessment and reevaluation. As always, it was a pleasure participating in your medical care today. Referrals: David Massey MD [Primary Care Provider] -
--- NOTE | 2025-03-09 00:41 | DI.[facility]_ITS ---
PROCEDURE INFORMATION: Exam: XR Chest Exam date and time: 03/08/2025 11:09 PM Age: 74 years old Clinical indication: Shortness of breath; SOB TECHNIQUE: Imaging protocol: Radiologic exam of the chest. Views: 2 views. COMPARISON: CR XR PORTABLE CHEST AP 06/09/2024 10:14 AM FINDINGS: Lungs: A rounded radiopacity is projected over the left upper lung. There is a pulmonary nodule within the right mid upper lung. Pleural spaces: No pleural effusion. No pneumothorax. Heart/Mediastinum: The cardiac silhouette is markedly enlarged, as before. Bones/joints: Unremarkable. IMPRESSION: Bilateral airspace opacities within the upper lungs. Differential considerations include multifocal infection and neoplasm. If further characterization is warranted, CT of the chest could be used. Dictated and Authenticated by: Mildred Thakur MD. Orderin Jeramie Horvath MD
--- NOTE | 2025-03-11 09:17 | NUR.NOTE ---
Accessed Pt chart to see if Pt was prescribed any antibiotics. She was not.
--- NOTE | 2025-03-11 16:54 | W.ED.FU ---
Date of service: 03/11/25 Time of Service: 16:54 Follow Up Plan: Urine culture received that shows Enterobacter aerogen positive. It is sensitive to ciprofloxacin and levofloxacin. Patient does have a indwelling catheter I do recommend levofloxacin at this time. Call made to the phone number on file, no answer left voicemail. Will send prescription for levofloxacin sent to the pharmacy on file. A callback was received from the patient's son very quickly, I did relay the culture results to him he reports that the patient is doing well. I did inform him that a prescription for levofloxacin 750 mg once daily for 7 days was sent to the pharmacy on file he verbalizes understanding.
== END 2025-03-09 00:21 | disposition home or self-care (01) ==
PROVIDERS: Nurse Practitioner Family; Emergency Provider Student in an Organized Health Care Education/Training Program; PCP Family Medicine
DX: R06.02 Shortness of breath (principal); R91.1 Solitary pulmonary nodule; Z86.79 Personal history of other diseases of the circulatory system
CPT/HCPCS: 99284 ×2; 36415; 00123; 80053; 87077; 93005; 71046; 81003; 81015; 83735; 83880; 84484; 85025; 87086; 87186; 93010

== ENCOUNTER 2025-04-23 17:51 | Outpatient (REF) | payer MEDICARE, SELFPAY | END 2025-04-23 17:52 | disposition home or self-care (01) | LOC: NCHCN 17:51 | PROVIDERS: PCP Family Medicine; Visit Provider Family Medicine | DX: Z11.2 Encounter for screening for other bacterial diseases (principal); Z87.440 Personal history of urinary (tract) infections; R82.89 Other abnormal findings on cytological and histological examination of urine | CPT/HCPCS: 87077; 87086; 87186 ==

== ENCOUNTER 2025-04-24 22:31 | Emergency (ER) | payer MEDICARE, SELFPAY ==
[2025-04-24] VITALS (10 sets, daily range): BP systolic 133–167; BP diastolic 81–118; PULSE 0–114; RESP 15–35; O2SAT 95–100
--- NOTE | 2025-04-24 22:30 | RT.EKG_ITS ---
APPROVED REPORT Exam: Resting ECG Reason for Exam: trauma Patient Location: E HR:99 bpm ECG Measurements Heart Rate 99 AXIS UT 101 P 84 QRSd 113 QRS 55 QT 394 T 11 QTc 505 Conclusion afib Incomplete right bundle branch block...QRSd >112, terminal axis(90,270) no ST segment or T wave abnormalities to suggest occlusive GA
--- NOTE | 2025-04-24 22:30 | DI.CT_ITS ---
Exam(s) CT HEAD CERVICAL SPINE WO EXAM: CT HEAD CERVICAL SPINE WO CLINICAL HISTORY: trauma. TECHNIQUE: Imaging Protocol: Axial computed tomography images with coronal and sagittal reformatted images were created and reviewed COMPARISON: CT CT HEAD WO from 05/02/[address] HEAD CERVICAL SPINE WO from 01/28/[address] HEAD WO from 06/09/2024 FINDINGS: CT Head: Ventricles and Extra axial spaces: Normal in size and morphology for the patient's age. Hemorrhage: None. Cerebral parenchyma: There is an area of encephalomalacia involving the left frontal parietal lobe. There is old lacunar infarct seen on the left adjacent to the ventricles. There are areas of decreased attenuation in the white matter consistent with chronic microvascular ischemic disease. Midline shift: None. Brainstem/Cerebellum: Normal. Calvarium: Normal. Visualized Paranasal sinuses/Mastoids: There is a mucous retention cyst in the left maxillary sinus. Soft Tissues: Unremarkable. CT Cervical Spine: Bones: No acute fracture or subluxation. Age-appropriate degenerative changes are present. There is mild anterolisthesis of C2 on C3 and C3 on C4. Soft Tissues: Unremarkable. Lung Apices: Clear. IMPRESSION: 1. No acute intracranial process. 2. No acute fracture or subluxation in the cervical spine. 3. The preliminary [facility] report was reviewed. RADIATION DOSE DELIVERED: 1,292.96mGy.cm Total DLP DATA REPOSITORY: All CT scans at this facility are submitted to the National Radiology Data Registry (NRDR) Dose Index Registry (DIR) with the [employer] (ACR). RADIATION OPTIMIZATION: All CT scans at this facility use at least one of these dose optimization techniques: automated exposure control; mA and/or kV adjustment per patient size (includes targeted exams where dose is matched to clinical indication); or iterative reconstruction.
--- NOTE | 2025-04-24 22:30 | DI.CT_ITS ---
Exam(s) CT CHEST/ABD/PEL W EXAM: CT CHEST/ABD/PEL W CLINICAL HISTORY: trauma TECHNIQUE: Imaging Protocol: Axial computed tomography images with coronal and sagittal reformatted images were created and reviewed. Lung Computer Aided Detection (CAD) was utilized. CONTRAST MATERIAL: Intravenous: Omnipaque 350 contrast volume:75 mL Oral: No COMPARISON: CT CT ABDOMEN PELVIS W from 06/01/[address] RENAL COLIC WO from 05/04/2023 CR XR CHEST 2V PA LATERAL from 01/28/2024 CR XR PORTABLE CHEST AP from 06/09/2024 CR,XR XR CHEST 2V PA LATERAL from 03/08/2025 FINDINGS: CHEST: Tracheobronchial tree: Patent where visualized. No evidence of bronchiectasis. Pulmonary parenchyma: No consolidation or dominant measurable mass. No architectural distortion. There is dependent atelectasis present. Visualized thyroid gland: Unremarkable. Mediastinum and Maryuri: No dominant adenopathy or fluid collection. The esophagus is unremarkable. There is a small hiatal hernia. Pleura: No effusion or pneumothorax. Heart: The heart is enlarged. Coronary artery calcification is present. No pericardial effusion. Pulmonary arteries: Due to the timing of the bolus, there is suboptimal opacification of the pulmonary arteries. Aorta: Thoracic aorta non-dilated. Atherosclerotic calcification is present. Lymph nodes: Within normal limits. Soft tissues: Mild gynecomastia is present. Bones:Within normal limits for the patient's age. No displaced rib fractures are identified. Thoracic and lumbar spine: Age-appropriate degenerative changes are present. There is a stable T11 compression fracture deformity. No new compression fracture deformities are seen. ABDOMEN: Liver: Normal density. No measurable mass. Portal, Superior Mesenteric, and Splenic Veins: Unremarkable. Gallbladder and Biliary Tract: Status post cholecystectomy. No significant biliary ductal dilatation is present. Pancreas: Normal density, no abnormal calcifications or inflammatory process. Spleen: Normal. Adrenals: No masses seen. Kidneys: Normal size, contour and axis. No radiodense stones or obstructive uropathy. No masses seen. Note is made of a retroaortic left renal vein. Abdominal Aorta: Abdominal portion non-dilated. Atherosclerotic calcification is present. Bowel: There is diverticulosis of the colon without evidence of acute diverticulitis. There is no evidence of bowel wall thickening or bowel obstruction. There has been prior gastric surgery. Appendix is unremarkable. Peritoneal Cavity: No ascites, collection or mesenteric inflammatory response. No free air. Lymph Nodes: Within normal limits. Bones: Within normal limits for the patient's age. Soft Tissues: There are bilateral large fat containing inguinal hernias. PELVIS: Bladder: There is a Romero catheter within the urinary bladder. The bladder is incompletely distended limiting evaluation. There is thickening of the wall of the urinary bladder. This may be due to underdistention. Cystitis cannot be excluded. Reproductive Organs: The prostate gland is enlarged. Lymph Nodes: Within normal limits. Bones: Within normal limits. IMPRESSION: 1. There is no acute pulmonary process. 2. Stable T11 compression fracture deformity. 3. No acute fracture is identified. 4. No acute abdominal or pelvic process is seen. 5. Incidental findings in the abdomen, pelvis and chest as described above. 6. The preliminary [facility] report was reviewed. RADIATION DOSE DELIVERED: 1,255.26mGy.cm Total DLP DATA REPOSITORY: All CT scans at this facility are submitted to the National Radiology Data Registry (NRDR) Dose Index Registry (DIR) with the [employer] (ACR). RADIATION OPTIMIZATION: All CT scans at this facility use at least one of these dose optimization techniques: automated exposure control; mA and/or kV adjustment per patient size (includes targeted exams where dose is matched to clinical indication); or iterative reconstruction.
[2025-04-24 22:44] LABS: BE (Venous) -7 mmol/L (-2-3); HCO3 (Venous) 19 mmol/L (23-28); O2 Sat (Venous) 57 %; TCO2 (Venous) 17 mmol/L (24-29); pCO2 (Venous) 33 mmHg (41-51); pO2 (Venous) 32 mmHg
--- NOTE | 2025-04-24 22:45 | DI.RAD_ITS ---
Exam(s) XR SHOULDER LT COMPLETE 2+V EXAM: XR SHOULDER LT COMPLETE 2+V CLINICAL HISTORY: fall down stairs, echymosis posterior shoulder. TECHNIQUE: 2D digital imaging was performed of the left shoulder. Three images were obtained. AP and Y views were obtained. COMPARISON: CR LEFT SHOULDER COMPLETE from 02/19/2018 FINDINGS: This is a limited trauma series of the left shoulder. BONES: No acute fracture is present. No bony destructive lesion is seen. JOINTS: No dislocation present. There are degenerative changes seen at the acromioclavicular and glenohumeral joints. SOFT TISSUE: Normal. IMPRESSION: 1. Limited left shoulder trauma series. 2. There is no acute fracture or dislocation. 3. Degenerative changes seen in the shoulder. 4. The preliminary [facility] report was reviewed. DATA REPOSITORY: RADIATION DOSE DELIVERED:
[2025-04-24 22:50] LABS: Abs Immature Grans 0.07 10^3/uL (0.0-0.06); HCT 38.3 % (40.0-50.0); HGB 12.1 g/dL (13.5-17.5); Immature Grans % 0.6 %; MCH 26.3 pg (27.0-33.0); MCHC 31.6 % (32.0-36.0); MCV 83 fL (80-95); MPV 9.6 fL (8.0-11.0); Platelet Count 256 10^3/uL (130-400); RBC 4.60 10^6/uL (4.36-5.78); RDW 15.4 % (11.8-14.1); RDW-SD 46.7 fL; WBC 10.90 10^3/uL (4.4-10.8)
[2025-04-24 23:03] LABS: INR 1.1 (0.9-1.1); PTT Activated 31.2 sec (20.6-30.2); Prothrombin Time 10.6 sec (9.1-11.1)
[2025-04-24] MEDS: Normal Saline - Diluent 50 ML VIAL IJ (23:13)
[2025-04-24] MEDS: Omnipaque 350 MG/ML 100 ML BTL IJ (23:13)
[2025-04-24 23:14] LABS: ALT 21 U/L (16-63); AST 14 U/L (15-37); Albumin 3.5 g/dL (3.4-5.0); Alkaline Phosphatase 109 U/L (46-116); Anion Gap 17.5 mmol/L (3-11); BUN 41 mg/dL (7-18); Bilirubin, Total 0.6 mg/dL (0.2-1.0); CO2 18.5 mmol/L (21.0-32.0); Calcium 8.9 mg/dL (8.5-10.1); Chloride 104 mmol/L (98-107); Estimated GFR 41.52 (mL/min/1.73m2); Glucose 215 mg/dL (74-106); Lipase 27 U/L (<78); Magnesium 1.8 mg/dL (1.8-2.4); Potassium 4.0 mmol/L (3.5-5.1); Sodium 140 mmol/L (136-145); TSH (W/Ref FT4) 5.64 uIU/mL (0.36-3.74); Total Protein 7.2 g/dL (6.4-8.2)
[2025-04-24] MEDS: Normal Saline 1,000 ML 1000 ML IV (23:36)
[2025-04-24] MEDS: fentaNYL 100 MCG/2 ML VIAL (23:37)
[2025-04-24] MEDS: Midazolam 10 MG/2 ML VIAL NS (23:37)
--- NOTE | 2025-04-24 23:37 | DI.[facility]_ITS ---
PROCEDURE INFORMATION: Exam: XR Left Shoulder Exam date and time: 04/24/2025 11:25 PM Age: 74 years old Clinical indication: Other: Trauma; Additional info: *trauma patient, limited views TECHNIQUE: Imaging protocol: Radiologic exam of the left shoulder. Views: 2 or more views. COMPARISON: CT CHEST/ABD/PEL W 04/24/2025 11:08 PM FINDINGS: Bones/joints: Osteoarthritic changes with joint space narrowing and inferior osteophyte formation at the glenohumeral joint. No acute fracture. No acute malalignment. Soft tissues: Normal. IMPRESSION: No acute bony abnormality. Dictated and Authenticated by: Carmelo Singh MD. Orderin Binh Jarquin MD
--- NOTE | 2025-04-24 23:45 | DI.[facility]_ITS ---
PROCEDURE INFORMATION: Exam: CT Head Without Contrast Exam date and time: 04/24/2025 11:06 PM Age: 74 years old Clinical indication: Other: Trauma TECHNIQUE: Imaging protocol: Computed tomography of the head without contrast. Radiation optimization: All CT scans at this facility use at least one of these dose optimization techniques: automated exposure control; mA and/or kV adjustment per patient size (includes targeted exams where dose is matched to clinical indication); or iterative reconstruction. COMPARISON: CT HEAD WO 06/09/2024 10:36 AM FINDINGS: Brain: Prominence of cerebral sulci reflects cerebral atrophy. A few poorly marginated hypodensities seen scattered throughout the deep and periventricular white matter of both cerebral hemispheres are consistent with underlying microvascular ischemic changes with a superimposed zone of cystic encephalomalacia/volume loss again seen involving the left frontal and frontal opercular regions consistent with chronic ischemic insult. Brainstem and cerebellum are unremarkable and there is no evidence of acute transcortical infarction or recent intracranial hemorrhage. Cerebral ventricles: Stable in configuration with no midline shift or hydrocephalus. Paranasal sinuses: Retention cyst is seen along the anterolateral margin of the left maxillary sinus with other paranasal sinuses grossly clear throughout. Mastoid air cells: Grossly clear bilaterally. Probable cerumen seen in the external auditory canals bilaterally. Bones: Bony calvarium and skull base are intact and no acute fractures are detected. Soft tissues: Suspected scalp ecchymosis/edema seen in the lateral left frontoparietal region with no subjacent fracture detected. IMPRESSION: Diffuse atrophy and multifocal chronic ischemic changes with no evidence of acute transcortical infarction, recent intracranial hemorrhage or hydrocephalus. No acute intracranial process is detected. PROCEDURE INFORMATION: Exam: CT Cervical Spine Without Contrast Exam date and time: 04/24/2025 11:06 PM Age: 74 years old Clinical indication: Other: Trauma TECHNIQUE: Imaging protocol: Computed tomography of the cervical spine without contrast. Radiation optimization: All CT scans at this facility use at least one of these dose optimization techniques: automated exposure control; mA and/or kV adjustment per patient size (includes targeted exams where dose is matched to clinical indication); or iterative reconstruction. COMPARISON: CT HEAD CERVICAL SPINE WO 01/28/2024 3:54 PM FINDINGS: Bones: There is arthrosis involving the anterior atlantodental interval with loss of joint space and marginal osteophyte formation and the odontoid process is grossly intact. There are mild anterolistheses of C2 upon C3 and C3 upon C4 and there is gross preservation of vertebral body height throughout cervical levels with no vertebral body fractures or other significant subluxations detected. Changes of facet arthropathy are seen bilaterally throughout cervical levels with suspected ankylosis evident bilaterally at the C3-C4 level and no acute fractures detected involving the posterior elements of the cervical spine. Discs/Spinal canal/Neural foramina: Loss of disc space height with posterior osteocartilaginous ridging is most significant at C2-C3, C4-C5 and C5-C6 resulting in canal stenoses and suspected mass-effect upon the ventral cord which could be better evaluated with MRI. Uncovertebral and facet changes produce bilateral foraminal distortions/narrowings throughout cervical levels. Lungs: No pneumothorax or consolidation detected at the lung apices. Soft tissues: Unremarkable. IMPRESSION: Chronic cervical spondylosis with central canal and foraminal narrowing as above. No acute cervical fractures are detected. Dictated and Authenticated by: Bryson Mcgregor MD. Orderin Antoni Correa MD
--- NOTE | 2025-04-24 23:54 | DI.[facility]_ITS ---
PROCEDURE INFORMATION: Exam: CT Chest With Contrast; Diagnostic Exam date and time: 04/24/2025 11:08 PM Age: 74 years old Clinical indication: Other: Trauma TECHNIQUE: Imaging protocol: Diagnostic computed tomography of the chest with contrast. Radiation optimization: All CT scans at this facility use at least one of these dose optimization techniques: automated exposure control; mA and/or kV adjustment per patient size (includes targeted exams where dose is matched to clinical indication); or iterative reconstruction. Contrast material: OMNIPAQUE 350; Contrast volume: 75 ml; Contrast route: INTRAVENOUS (IV); COMPARISON: CR XR CHEST 2V PA LATERAL 03/08/2025 11:09 PM FINDINGS: Lungs: Unremarkable. No consolidation. No masses. Pleural spaces: Unremarkable. No pneumothorax. No pleural effusion. Heart: Mild cardiomegaly. Coronary arteries: Coronary artery calcifications. Lymph nodes: Unremarkable. No enlarged lymph nodes. Vasculature: Aorta demonstrates mild atherosclerotic calcification. No aortic aneurysm or dissection. Bones/joints: Unremarkable. No acute fracture. Soft tissues: Unremarkable. IMPRESSION: No acute findings. PROCEDURE INFORMATION: Exam: CT Abdomen And Pelvis With Contrast Exam date and time: 04/24/2025 11:08 PM Age: 74 years old Clinical indication: Other: Trauma TECHNIQUE: Imaging protocol: Computed tomography of the abdomen and pelvis with contrast. Radiation optimization: All CT scans at this facility use at least one of these dose optimization techniques: automated exposure control; mA and/or kV adjustment per patient size (includes targeted exams where dose is matched to clinical indication); or iterative reconstruction. Contrast material: OMNIPAQUE 350; Contrast volume: 75 ml; Contrast route: INTRAVENOUS (IV); COMPARISON: CT RENAL COLIC WO 05/04/2023 9:31 AM FINDINGS: Liver: Normal. No mass. Gallbladder and biliary ducts: Gallbladder surgically absent. Pancreas: Normal. No ductal dilation. Spleen: Normal. No splenomegaly. Adrenal glands: Normal. No mass. Kidneys and ureters: Normal. No hydronephrosis. Stomach and bowel: Previous gastric stapling and bypass. Colonic diverticula present. No evidence of acute diverticulitis at this time. No evidence of intestinal perforation or obstruction. Appendix: No evidence of appendicitis. Intraperitoneal space: Unremarkable. No free air. No significant fluid collection. Vasculature: Aorta demonstrates mild atherosclerotic calcification. No abdominal aortic aneurysm. Lymph nodes: Unremarkable. No enlarged lymph nodes. Urinary bladder: Bladder decompressed by a Romero catheter, but otherwise unremarkable. Small amount of intraluminal air consistent with instrumentation. Reproductive: Hypertrophy of the prostate. Bones/joints: Anterior compression fracture T11 which appears nonacute. No acute fracture. No acute malalignment. Soft tissues: Unremarkable. IMPRESSION: No acute findings. Dictated and Authenticated by: Carmelo Singh MD. Orderin Antoni Correa MD
[2025-04-24 23:57] LABS: Glucose Negative (Negative)
[2025-04-25] VITALS (37 sets, daily range): BP systolic 127–177; BP diastolic 73–154; PULSE 71–143; RESP 11–26; TEMP 35; O2SAT 92–100
--- NOTE | 2025-04-25 00:02 | W.ED.GENAD ---
Discharge Plan Disposition Patient Disposition: Home Condition: Stable Discharge Details Clinical Impression: Head injury, Anticoagulated, Agitated, Dementia, Acute cystitis, Multiple skin tears, Hypothyroid, A-fib Primary Care Provider: David Massey ED Provider: Milka Purcell Home Meds and New Rx's Prescriptions: New cefpodoxime 200 mg tablet 200 mg PO Q12H 14 Days Qty: 28 0RF Rx Instructions: must administer with a meal/food Continued metformin 1,000 mg tablet 1,000 mg PO BID polyethylene glycol 3350 [Miralax] 17 gram/dose powder 17 g PO DAILY PRN atorvastatin 40 mg tablet 40 mg PO DAILY metoprolol tartrate 50 mg tablet 50 mg PO BID (DME) pen needle, diabetic [BD Ultra-Fine Claribel Pen Needle] 32 gauge x 5/32 needle See Rx Instructions .Route Rx Instructions: As directed (DME) Dexcom G7 Asphalt Paving Supervisor Misc See Rx Instructions .Route Rx Instructions: As directed (DME) Dexcom G7 Sensor Device See Rx Instructions .Route Rx Instructions: As directed nystatin [Nystop] 100,000 unit/gram powder 1 applic topical BID (DME) blood sugar diagnostic Strip See Rx Instructions .Route Rx Instructions: As directed (DME) lancets 33 gauge misc See Rx Instructions .Route Rx Instructions: As directed (DME) OneTouch Ultra Test Strip See Rx Instructions .Route Rx Instructions: As directed Eliquis 5 mg tablet 5 mg PO BID Qty: 180 3RF levetiracetam 500 mg tablet 500 mg PO BID Qty: 180 3RF furosemide 20 mg tablet 20 mg PO DAILY Patient Comments: Take 1 tablet by mouth every morning Dr. Cuellar- Cardiology lisinopril 5 mg tablet 5 mg PO DAILY diltiazem HCl 120 mg capsule,extended release 24hr 120 mg PO BID levothyroxine 50 mcg tablet 50 mcg PO DAILY Patient Comments: Take 1 tablet by mouth once a day Take on an empty stomach 30 minutes before breakfast or other medications Discharge Instructions Instructions: Head injury in adults, Urinary Tract Infection, Adult ED, General Trauma, Adult ED Additional Instructions: CT scans did not show any injuries. Tylenol over the counter for pain; follow the directions on the bottle. Antibiotic twice a day for the next 14 days for urinary tract infection. Call your primary care doctor in the morning to schedule an appointment for within the next 72 hours to followup on your visit here. At that visit please discuss your fall, your urinary tract infection, and your T4 (thyroid level) which was slightly low today. Return to the emergency department for new or worsening symptoms including headache, vomiting, numbness, weakness, fever, or not acting like his usual self. HPI General Mode of arrival: EMS. Date/Time Provider Initiated Documentation: 04/24/25 22:34. Limitations to Documentation: altered mental status. Information obtained by: patient, family and EMS. HPI Narrative: 74yo M with hx of dementia, DM, prior CVA, presenting via EMS after a fall. Per EMS family heard several thumps and then found patient at the bottom of a flight of stairs. Unsure from how high up he fell. Seemed more confused than baseline after the fall and they called EMS. Was awake and alert when family got to him. Per EMS was somewhat agitated in route. Minimally medical history available on arrival; son is reportedly coming to the ED. Patient denies any pain on arrival, is able to state that he has diabetes but not sure of any other medical conditions or what medications he takes. Does not recall what happened. Denies any headache, nausea, numbness, or weakness. Focused primarily on whether his dog is safe. Related Data Home Medications ?Medication ?Instructions ?Recorded ?Confirmed furosemide 20 mg tablet 20 mg PO DAILY 06/01/21 04/24/25 metformin 1,000 mg tablet 1,000 mg PO BID 01/23/22 04/24/25 levothyroxine 50 mcg tablet 50 mcg PO DAILY 12/03/22 04/24/25 atorvastatin 40 mg tablet 40 mg PO DAILY 12/31/22 04/24/25 metoprolol tartrate 50 mg tablet 50 mg PO BID 04/29/23 04/24/25 lisinopril 5 mg tablet 5 mg PO DAILY 01/28/24 04/24/25 blood sugar diagnostic 02/21/24 04/24/25 blood sugar diagnostic (OneTouch 02/21/24 04/24/25 Ultra Test strips) blood-glucose sensor (Dexcom G7 02/21/24 04/24/25 Sensor device) blood-glucose,bill hiker,cont 02/21/24 04/24/25 (Dexcom G7 Asphalt Paving Supervisor) lancets 33 gauge 02/21/24 04/24/25 nystatin 100,000 unit/gram topical 1 applic topical BID 02/21/24 04/24/25 powder (Nystop) pen needle, diabetic 32 gauge x 02/21/24 04/24/25 (BD Ultra-Fine Claribel Pen Needle) diltiazem HCl 120 mg 120 mg PO BID 02/24/24 04/24/25 capsule,extended release 24 hr polyethylene glycol 3350 17 17 g PO DAILY PRN 06/25/24 04/24/25 gram/dose oral powder (Miralax) apixaban 5 mg tablet (Eliquis) 5 mg PO BID #180 tabs 07/28/24 04/24/25 levetiracetam 500 mg tablet 500 mg PO BID #180 tabs 11/17/24 04/24/25 cefpodoxime 200 mg tablet 200 mg PO Q12H 14 days #28 tabs 04/25/25 Previous Rx's ?Medication ?Instructions ?Recorded apixaban 5 mg tablet (Eliquis) 5 mg PO BID #180 tabs 07/28/24 levetiracetam 500 mg tablet 500 mg PO BID #180 tabs 11/17/24 cefpodoxime 200 mg tablet 200 mg PO Q12H 14 days #28 tabs 04/25/25 Allergies Allergy/AdvReac Type Severity Reaction Status Date / Time No Known Allergies Allergy Verified 08/05/24 21:01 General TREVOR: 3 Exam Narrative Exam Narrative: GENERAL: Alert. SKIN: Warm and well perfused. HEAD: Echymosis to left occiput, L & R forehead. Facial bones without deformities or tenderness. EYES: PERRL. No scleral icterus or conjunctival injection. Extraocular muscles intact without nystagmus or diplopia. No proptosis or enophthalmos. EARS: Normal appearing pinnae. NOSE: No discharge, tenderness, laxity. No nasal septal hematoma. MOUTH: No malocclusion or trismus. Moist mucus membranes without blood. NECK: Trachea midline. No discolorations or edema. CV: Irregular. Normal s1 and s2. No murmurs, rubs, or gallops. PV: Radial pulses 2+ bilaterally and symmetric. Dorsalis pedis pulses 2+ bilaterally and symmetric. 2+ capillary refill. No extremity edema. CHEST: No abrasions or ecchymosis. Chest symmetric with respirations. No chest wall tenderness. No crepitus. No step offs. Lungs are clear to auscultation bilaterally. ABDOMEN: No ecchymosis or abrasions. Soft, nondistended, nontender. BACK: Ecchymosis left paraspinal area thoroic region, not over midline. Spine without bony tenderness, no step offs. PELVIC: Pelvis stable, nontender to lateral compression. Erythema left iliac crest. : Normal external genitalia without blood at meatus. No ecchymosis or edema. Thornton in place. MSK: No gross. Tolerates full range of motion of extremities without tenderness. No scaphid tenderness. Echymosis to left posterior shoulder. Skin tears/abrasions: R elbow, R wrist, dorsum R hand, bilateral knees, R hermosillo, L lateral ankle, multiple does bilaterally NEURO: Alert. GCS 14 (E4 V4 M6). PERRL.? EOMI.? Fluent speech, no dysarthria. Motor- 5/5 strength symmetric bilateral upper and lower extremities including shoulder abductors/adductors, elbow flexors/extensors, wrist flexors/extensors, finger abductors/adductors, hipflexors/extensors, knee flexors/extensors, ankle dorsiflexors and planter flexors. Sensation- ?Intact to light touch and symmetric multiple dermatomes including upper and lower extremities Coordination- Non participatory in exam Reflexes- 2/4 achilles & patellar, no clonus Gait/station: ?Deferred CRANIAL NERVES: II: Pupils equal and reactive, III, IV, : EOM intact, no gaze preference or deviation, no nystagmus. V: normal sensation in V1, V2, and V3 segments bilaterally VII: no asymmetry, no nasolabial fold flattening VIII: normal hearing to speech IX, X: normal palatal elevation, no uvular deviation XI: Deferred XII: midline tongue protrusion Course Lab/Test Results Lab/Test Results: Laboratory Tests Range/Units 04/24/25 04/24/25 22:38 23:48 WBC (4.4-10.8) 10^3/uL 10.90 H RBC (4.36-5.78) 10^6/uL 4.60 Hgb (13.5-17.5) g/dL 12.1 L Hct (40.0-50.0) % 38.3 L MCV (80-95) fL 83 MCH (27.0-33.0) pg 26.3 L MCHC (32.0-36.0) % 31.6 L RDW (11.8-14.1) % 15.4 H Plt Count (130-400) 10^3/uL 256 MPV (8.0-11.0) fL 9.6 Immature Gran % % 0.6 Neutrophils % % 81.0 Lymphocytes % % 8.6 Monocytes % % 8.7 Eosinophils % % 0.8 Basophils % % 0.3 Nucleated RBC % (0.0-0.3) % 0.0 Absolute Neutrophils (1.2-6.7) 10^3/uL 8.83 H Absolute Lymphocytes (1.2-3.4) 10^3/uL 0.94 L Absolute Monocytes (0.1-0.8) 10^3/uL 0.95 H Absolute Eosinophils (0.0-0.7) 10^3/uL 0.09 Absolute Basophils (0.0-0.2) 10^3/uL 0.03 PT (9.1-11.1) sec 10.6 INR (0.9-1.1) 1.1 APTT (20.6-30.2) sec 31.2 H VBG pH (7.31-7.41) 7.36 VBG pCO2 (41-51) mmHg 33 L VBG pO2 mmHg 32 VBG HCO3 (23-28) mmol/L 19 L VBG Total CO2 (24-29) mmol/L 17 L VBG O2 Saturation % 57 VBG Base Excess (-2-3) mmol/L -7 L VBG Lactate (<or=2.0) mmol/L 4.2 H* Sodium (136-145) mmol/L 140 Potassium (3.5-5.1) mmol/L 4.0 Chloride (98-107) mmol/L 104 Carbon Dioxide (21.0-32.0) mmol/L 18.5 L Anion Gap (3-11) mmol/L 17.5 H BUN (7-18) mg/dL 41 H Creatinine (0.70-1.30) mg/dL 1.7 H Est GFR (CKD-EPI 2020) (mL/min/1.73m2) 41.52 Glucose (74-106) mg/dL 215 H Calcium (8.5-10.1) mg/dL 8.9 Magnesium (1.8-2.4) mg/dL 1.8 Total Bilirubin (0.2-1.0) mg/dL 0.6 AST (15-37) U/L 14 L ALT (16-63) U/L 21 Alkaline Phosphatase (46-116) U/L 109 Total Protein (6.4-8.2) g/dL 7.2 Albumin (3.4-5.0) g/dL 3.5 Lipase (<78) U/L 27 TSH (0.36-3.74) uIU/mL 5.64 H Free T4 (0.76-1.46) ng/dL 0.73 L Urine Color (Yellow) Yellow Urine Clarity (Clear) Cloudy Urine pH (5-8) 5.5 Ur Specific Lovilia (1.005-1.025) <= 1.005 Urine Protein (Neg-Trace) mg/dL Trace Urine Ketones (Negative) mg/dL Negative Urine Blood (Negative) Trace-intact H Urine Nitrite (Negative) Positive H Urine Bilirubin (Negative) Negative Urine Urobilinogen (Up to 0.2) mg/dL 0.2 Ur Leukocyte Esterase (Negative) Small H Urine Glucose (Negative) mg/dL Negative Ethyl Alcohol (<10) mg/dL < 3.0 ABO/Rh A Positive Antibody Screen NEGATIVE Medical Decision Making 74yo M with hx of dementia, HTN, hypothyroid, DM, prior CVA, afib on eliquis, presenting via EMS after a fall. Per EMS family heard several thumps and then found patient at the bottom of a flight of stairs. Agitated for EMS en route. Minimal medical history available on arrival, majority of history from son after he presented to the ED. Initial eval and resus: -Tachycardiac to 100's on arrival, vital signs otherwise reassuring. Afib on the monitor. Non-focal neurologic exam. Mild agitation and perseverating on exam, unknown baseline. Scattered echymosis including to back, forehead and occiput as well as multiple skin tears as described above. No midline cervical tenderness, ranging neck freely. Given hx CVA and in afib, high likelihood that he is on blood thinners. -EKG afib, no ST segment or T wave abnormalities to suggest occlusive MN -Given 10mg IV Versed to facilitate CT with good effect. HR decreased to 80's after Versed. C-collar placed once patient calm (low suspicion for c-spine injury and held off collar until sedated due to agitation/likelihood of furthering any injury while attempting to place collar). -Transported emergently to CT accompanied by MD and respiratory. No large bleed present on my initial view while in scanner. Did grimace when moved from stretcher to CT table; given 25mcg IV fentanyl for pain. ED course: -Son to bedside and provides additional hx; pt with seizure disorder on antiepileptics, has known afib, is on eliquis. Is confused at baseline and often somewhat paranoid. Confirmed DNR/DNI -Labs reviewed as below, CBC with Hg 12.1 (baseline on record review), CMP with Cr of 1.7 (also baseline) and elevated gap at 17.5, Mg normal, lipase normal, TSH elevated with slightly low T4, coags reassuring, VBG with slight metabolic acidosis with respiratory compensation and lactate elevated at 4.2. 1L IVFB ordered and will repeat lactate. UA not suggestive of traumatic injury but likely UTI. Will give ceftriaxone here, change thornton. [facility] records reviewed, pt most recently grew enterobacter aerogenes on 03/08/25. -CTs independently reviewed; no large ICH, displaced cervical fracture, pneumothorax, or intraabdominal free fluids on my view; radiology reads below with no acute findings. -Repeat lactate improved to 2.1, VBG with bicarb and pCO2 trending towards normal On reassessment patient is calm and well appearing with normal vital signs and non-focal neurologic exam. Ambulates steadily with walker. Continues to deny pain or any other complaints. Son at bedside reports he is back to baseline. Suspect lactate on arrival was 2/t agitation. Low suspicion for sepsis, afebrile and though tachycardiac to 110's on arrival HR improved after initial dose of versed, now in the 80's. No indication for hospital admission at this time, appropriate for discharge home on oral antibiotics with strict return precautions. Discharged home; discharge instructions and return precuations were reviewed with patient and son who verbalized understanding. All questions were answered and they are in agreement with the plan. Imaging Data Radiologic Study: Imaging: X-Ray and CT Scan Radiologist's impression: CT head: IMPRESSION Diffuse atrophy and multifocal chronic ischemic changes with no evidence of acute transcortical infarction, recent intracranial hemorrhage or hydrocephalus. No acute intracranial process is detected. CT c-spine:IMPRESSION: Chronic cervical spondylosis with central canal and foraminal narrowing as above. No acute cervical fractures are detected. CT chest: IMPRESSION: No acute findings. CT abd/pelvis: IMPRESSION: No acute findings. XR left shoulder: IMPRESSION: No acute bony abnormality. Lab Data Lab results reviewed: Yes I reviewed the patient's lab results. Labs: 04/24/25 23:48 Urine - Reflex from Ua Urine Culture - Pending Laboratory Tests Range/Units 04/24/25 04/24/25 04/25/25 22:38 23:48 00:58 WBC (4.4-10.8) 10^3/uL 10.90 H RBC (4.36-5.78) 10^6/uL 4.60 Hgb (13.5-17.5) g/dL 12.1 L Hct (40.0-50.0) % 38.3 L MCV (80-95) fL 83 MCH (27.0-33.0) pg 26.3 L MCHC (32.0-36.0) % 31.6 L RDW (11.8-14.1) % 15.4 H Plt Count (130-400) 10^3/uL 256 MPV (8.0-11.0) fL 9.6 Immature Gran % % 0.6 Neutrophils % % 81.0 Lymphocytes % % 8.6 Monocytes % % 8.7 Eosinophils % % 0.8 Basophils % % 0.3 Nucleated RBC % (0.0-0.3) % 0.0 Absolute Neutrophils (1.2-6.7) 10^3/uL 8.83 H Absolute Lymphocytes (1.2-3.4) 10^3/uL 0.94 L Absolute Monocytes (0.1-0.8) 10^3/uL 0.95 H Absolute Eosinophils (0.0-0.7) 10^3/uL 0.09 Absolute Basophils (0.0-0.2) 10^3/uL 0.03 PT (9.1-11.1) sec 10.6 INR (0.9-1.1) 1.1 APTT (20.6-30.2) sec 31.2 H VBG pH (7.31-7.41) 7.36 7.31 VBG pCO2 (41-51) mmHg 33 L 41 VBG pO2 mmHg 32 35 VBG HCO3 (23-28) mmol/L 19 L 20 L VBG Total CO2 (24-29) mmol/L 17 L 19 L VBG O2 Saturation % 57 59 VBG Base Excess (-2-3) mmol/L -7 L -6 L VBG Lactate (<or=2.0) mmol/L 4.2 H* 2.1 Sodium (136-145) mmol/L 140 Potassium (3.5-5.1) mmol/L 4.0 Chloride (98-107) mmol/L 104 Carbon Dioxide (21.0-32.0) mmol/L 18.5 L Anion Gap (3-11) mmol/L 17.5 H BUN (7-18) mg/dL 41 H Creatinine (0.70-1.30) mg/dL 1.7 H Est GFR (CKD-EPI 2020) (mL/min/1.73m2) 41.52 Glucose (74-106) mg/dL 215 H Calcium (8.5-10.1) mg/dL 8.9 Magnesium (1.8-2.4) mg/dL 1.8 Total Bilirubin (0.2-1.0) mg/dL 0.6 AST (15-37) U/L 14 L ALT (16-63) U/L 21 Alkaline Phosphatase (46-116) U/L 109 Total Protein (6.4-8.2) g/dL 7.2 Albumin (3.4-5.0) g/dL 3.5 Lipase (<78) U/L 27 TSH (0.36-3.74) uIU/mL 5.64 H Free T4 (0.76-1.46) ng/dL 0.73 L Urine Color (Yellow) Yellow Urine Clarity (Clear) Cloudy Urine pH (5-8) 5.5 Ur Specific Lovilia (1.005-1.025) <= 1.005 Urine Protein (Neg-Trace) mg/dL Trace Urine Ketones (Negative) mg/dL Negative Urine Blood (Negative) Trace-intact H Urine Nitrite (Negative) Positive H Urine Bilirubin (Negative) Negative Urine Urobilinogen (Up to 0.2) mg/dL 0.2 Ur Leukocyte Esterase (Negative) Small H Urine RBC (0-2) HPF 0-2 Urine WBC (0-5) HPF 20-50 H Ur Epithelial Cells (Negative) HPF Negative Urine Crystals (Negative) HPF Few Amorphous Urine Bacteria (Negative) HPF Moderate Urine Casts (Negative) LPF Negative Urine Mucus (Negative) Trace Ur Culture Indicated? Yes Urine Glucose (Negative) mg/dL Negative Urine Opiates Screen (Negative) Negative Urine Methadone Screen (Negative) Negative Ur Barbiturates Screen (Negative) Negative Ur Tricyclics Screen (Negative) Negative Ur Amphetamines Screen (Negative) Negative U Benzodiazepines Scrn (Negative) Positive A Urine Cocaine Screen (Negative) Negative Ur THC Screen (Negative) Negative Ethyl Alcohol (<10) mg/dL < 3.0 ABO/Rh A Positive Antibody Screen NEGATIVE Critical Care Time Critical Care Time Critical Care Time: Yes Total Critical Care Time: 32 Attestation: Due to a high probability of clinically significant, life threatening deterioration, the patient required my highest level of preparedness to intervene emergently and I personally spent this critical care time directly and personally managing the patient. This critical care time included obtaining a history; examining the patient; pulse oximetry; ordering and review of studies; arranging urgent treatment with development of a management plan; evaluation of patient's response to treatment; frequent reassessment; and, discussions with other providers. This critical care time was performed to assess and manage the high probability of imminent, life-threatening deterioration that could result in multi-organ failure. It was exclusive of separately billable procedures and treating other patients [facility] All Active Problems (Updated 04/25/25 @ 02:41 by Milka Purcell MD) A-fib (Chronic) Hypothyroid (Chronic) Multiple skin tears (Acute) Acute cystitis (Acute) Dementia (Chronic) Agitated (Acute) Anticoagulated (Acute) Head injury (Acute) ACP (advance care planning) (Acute) Caregiver stress (Acute) Financial difficulties (Acute) Need for home health care (Acute) Impaired instrumental activities of daily living (Acute) Deficit in activities of daily living (ADL) (Acute) Frequent UTI (Acute) Palliative care patient (Acute) UTI (urinary tract infection) due to urinary indwelling Thornton catheter (Acute) Atrial fibrillation with RVR (Acute) Altered mental state (Acute) Sepsis (Acute) Seizure (Acute) New onset seizure without head trauma (Acute) Global aphasia (Acute) Stroke (Chronic) Dysplastic colon polyp (Acute) Urothelial carcinoma (Acute) 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) Screening for colon cancer (Acute) Recurrent nephrolithiasis (Acute) Medical History UTI (urinary tract infection) Dystrophia unguium Edema, lower extremity Candidiasis of skin Peripheral venous insufficiency Lower urinary tract obstructive syndrome Weakness of both lower extremities Uses self-applied continuous glucose monitoring device Cognitive decline Cerebral infarction Hyperbilirubinemia Cardiomegaly Partial epilepsy 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 Atrial fibrillation with rapid ventricular response Obstructive sleep apnea syndrome (08/10/08) cpap Obstructive uropathy Peripheral neuropathy Venous insufficiency History of depression Iron deficiency CARLOS A on CPAP Hypertension Type 2 diabetes mellitus Dementia Ulcer of hermosillo limited to breakdown of skin Acute kidney injury superimposed on chronic kidney disease Creatinine elevation Elevated WBCs Hyperglycemia Ureterolithiasis Diabetic leg ulcer Phimosis Venous insufficiency (chronic) (peripheral) Bladder cancer Gross hematuria Chronic venous stasis Noncompliance Anxiety (08/10/08) Asbestosis (08/10/08) Asthma (07/08/12) pt. denies this Carpal tunnel syndrome Olecranon bursitis Peripheral neuralgia Atopic conjunctivitis (10/22/13) Benign prostatic hyperplasia (02/25/13) Depressive disorder (02/25/13) Diabetes mellitus (02/25/13) Essential hypertension (06/24/13) Frequency of micturition (01/03/16) Glaucoma (10/22/13) B/L Hyperlipidemia (02/25/13) Hypermetropia (10/22/13) Hypogonadism Idiopathic peripheral neuropathy Low back pain (08/10/08) Nuclear senile cataract (10/22/13) Obesity (08/10/08) Aviva-en-y 02/2014 Osteoarthritis (08/10/08) BILATERAL KNEE replacements Peptic reflux disease (08/10/08) Presbyopia (10/22/13) Pterygium (08/10/08) LEFT EYE Regular astigmatism (10/22/13) Sensorineural hearing loss, bilateral (09/05/17) Tubular adenoma Tubular and tubulovillous adenoma 2011 --suggested repeat 2017 Umbilical hernia (08/18/12) Urgency of urination (01/03/16) Varicose veins of lower extremity (08/10/08) Urinary tract infection Chronic anticoagulation Atrial fibrillation Surgical History S/P laparoscopic-assisted sigmoidectomy Hx of total knee arthroplasty Pt reports he has had a left and right knee repacement. Pt doesnt remember when and thinks he had it done at [facility] Status post cholecystectomy S/P cholecystectomy (~01/04/21) acute hemorrhagic cholecystitis and xanthogranulomatous inflammation S/P partial colectomy (~05/09/20) History of transurethral destruction of bladder lesion S/P colonoscopy Haddad-2011- tubular and tubulovillous polyps Santiago2019- sessile serrated with low grade dysplacia, tubullovillous with high grade dysplacia and tubular adenomas Status post abdominoplasty (05/23/16) Status post tonsillectomy Status post total knee replacement B/L Vasectomy Aviva-en-y surgery for weight loss Ronnell Fundoplication Repair of umbilical hernia Laparoscopic Family History Mother Cancer Father Heart disease Sister Cancer Sister No problems noted. Brother Cancer Brother No problems noted. Brother No problems noted. Son No problems noted. Son No problems noted. Son No problems noted. Social History Smoking/Tobacco Use Status: Never Second Hand Exposure: Yes Smoking risk assessment performed?: Yes Alcohol Intake: never Drug use: Never Substance use type: does not use Caregiver/Support person: No Household members: other Details: son Housing: house Communication Needs: None Education Level: high school Do you need help understanding health information?: Never Pets and animals: No Do you think of yourself as: straight/heterosexual Current gender identity: male What is your relationship status?: How often do you talk on the phone with friends or family?: once per week How often do you get together with friends or relatives?: decline to answer How often do you attend denominational or rastafari services?: decline to answer Do you belong to any clubs or organized social groups?: no Panel score (0-1 are the most socially isolated patients): 0 What type of physical activity do you participate in: walking Duration: 15-30 minutes/day Frequency: 1-2 times per week Velia/Jainism: Moravian Special velia needs: No Seatbelt use: always Helmet use: No Drive intox or ride w/intox auto transport driver: No Do you feel safe at home: Yes Do you feel safe in your relationship?: Yes
[2025-04-25 00:11] LABS: Cannabinoids THC Negative (Negative); METHADONE URINE SCREEN Negative (Negative)
[2025-04-25 00:14] LABS: C & S Indicated? Yes; RBC 0-2 HPF (0-2); WBC 20-50 HPF (0-5)
[2025-04-25] MEDS: ACETAMINOPHEN 1,000 MG/100 ML BAG 400 MG IVPB (00:24)
[2025-04-25] MEDS: cefTRIAXone 1 GM/50 ML BAG IVPB (00:25)
--- NOTE | 2025-04-25 00:44 | RESPIRATORY ---
RT responded to Trauma called. RT stayed with patient for airway management along MD, RNs, and staffs until pt. arrived from CT scan. Pt. maintained good vital signs and etCO2 throughout with spontaneous ventilation. MD notified before RT left. Pt. remained on 2l/min NC bleed in on etCO2 canula.
[2025-04-25 01:00] LABS: BE (Venous) -6 mmol/L (-2-3); HCO3 (Venous) 20 mmol/L (23-28); O2 Sat (Venous) 59 %; TCO2 (Venous) 19 mmol/L (24-29); pCO2 (Venous) 41 mmHg (41-51); pO2 (Venous) 35 mmHg
--- NOTE | 2025-04-25 09:06 | NUR.NOTE ---
Chart accessesed when patients son called to confirm which pharmacy medications were sent toNursing Note:
--- NOTE | 2025-04-27 08:49 | NUR.NOTE ---
Accessed Pt chart to document the antibiotics pt was prescribed on the Specimen Report. Report was put on the clipboard in the Doc Box
--- NOTE | 2025-04-27 09:00 | W.ED.FU ---
Date of service: 04/25/25 Follow Up Plan: I patient evaluated in the emergency department on April 25 after a fall. I reviewed the urine culture results. Patient discharged on appropriate antibiotic therapy.
--- NOTE | 2025-04-28 13:32 | NUR.NOTE ---
Access chart to print the demographic sheet and to get the discharge diagnosis for [facility] billing requisition. Nursing Note:
== END 2025-04-25 03:54 | disposition home or self-care (01) ==
PROVIDERS: Emergency Medicine; Emergency Provider Student in an Organized Health Care Education/Training Program; PCP Family Medicine
DX: S09.8XXA Other specified injuries of head, initial encounter (principal); S51.811A Laceration without foreign body of right forearm, initial encounter; S61.411A Laceration without foreign body of right hand, initial encounter; S80.212A Abrasion, left knee, initial encounter; S80.211A Abrasion, right knee, initial encounter; S80.811A Abrasion, right lower leg, initial encounter; I48.91 Unspecified atrial fibrillation; N30.00 Acute cystitis without hematuria; F03.90 Unspecified dementia, unspecified severity, without behavioral disturbance, psychotic disturbance, mood disturbance, and anxiety; R45.1 Restlessness and agitation; E03.9 Hypothyroidism, unspecified; Z79.01 Long term (current) use of anticoagulants; W10.8XXA Fall (on) (from) other stairs and steps, initial encounter
CPT/HCPCS: 96375; 51702; 36416; 82962; 99291; 74177; 80053; 80307; 82805; 83690; 86850; 86900; 86901; 87077; 93005; 96361; 96365; 70450; 71260; 72125; 73030; 80177; 80320; 81003; 81015; 83605; 83735; 84439; 84443; 85025; 85610; 85730; 87086; 87186; 93010; J0131; J0696; J2250; J3010; J3490

== ENCOUNTER 2025-05-04 08:35 | Emergency (ER) | payer MEDICARE, MEDICAID, SELFPAY ==
[2025-05-04] VITALS (38 sets, daily range): BP systolic 149–189; BP diastolic 76–115; PULSE 68–104; RESP 0–31; TEMP 36.7; O2SAT 97–100
[2025-05-04 09:19] LABS: Abs Immature Grans 0.01 10^3/uL (0.0-0.06); HCT 33.9 % (40.0-50.0); HGB 10.6 g/dL (13.5-17.5); Immature Grans % 0.2 %; MCH 26.4 pg (27.0-33.0); MCHC 31.3 % (32.0-36.0); MCV 85 fL (80-95); MPV 8.7 fL (8.0-11.0); Platelet Count 264 10^3/uL (130-400); RBC 4.01 10^6/uL (4.36-5.78); RDW 15.8 % (11.8-14.1); RDW-SD 48.4 fL; WBC 6.57 10^3/uL (4.4-10.8)
[2025-05-04 09:54] LABS: ALT 17 U/L (16-63); AST 11 U/L (15-37); Albumin 3.1 g/dL (3.4-5.0); Alkaline Phosphatase 106 U/L (46-116); Anion Gap 9.3 mmol/L (3-11); BUN 32 mg/dL (7-18); Bilirubin, Total 1.0 mg/dL (0.2-1.0); CO2 27.7 mmol/L (21.0-32.0); Calcium 9.1 mg/dL (8.5-10.1); Chloride 102 mmol/L (98-107); Estimated GFR 41.52 (mL/min/1.73m2); Glucose 162 mg/dL (74-106); Potassium 3.9 mmol/L (3.5-5.1); Sodium 139 mmol/L (136-145); Total Protein 7.2 g/dL (6.4-8.2)
--- NOTE | 2025-05-04 10:15 | RT.EKG_ITS ---
APPROVED REPORT Exam: Resting ECG Reason for Exam: tachycardic episode Patient Location: E HR:90 bpm ECG Measurements Heart Rate 90 AXIS GA [id number] P [id number] QRSd 93 QRS 48 QT 402 T 17 QTc 491 Conclusion Atrial fibrillation, rate 90 No interval abnormalities No STEMI No significant changes from priors
[2025-05-04] MEDS: Normal Saline - Diluent 50 ML VIAL IJ ×2 (10:34→10:35)
[2025-05-04] MEDS: Omnipaque 350 MG/ML 50 ML BTL 25 ML IJ (10:36)
[2025-05-04] MEDS: Omnipaque 350 MG/ML 100 ML BTL IJ (10:37)
--- NOTE | 2025-05-04 10:43 | DI.CT_ITS ---
Exam(s) CT ABD AORTA CTA W RUNOFF EXAM: CT ABD AORTA CTA W RUNOFF CLINICAL HISTORY: lower leg lesions; ?PAD. TECHNIQUE: Imaging Protocol: Axial computed tomography images with coronal and sagittal reformatted images were created and reviewed CONTRAST MATERIAL: Intravenous: Omnipaque 350 Contrast volume:100 ml Oral: None COMPARISON: No exams were available for comparison FINDINGS: LOWER EXTREMITIES VASCULAR: There is cardiomegaly. There is peripheral calcification but without prominent plaque with in the abdominal aorta. The abdominal aorta exhibits upper normal size. Similar findings in the common iliac arteries. There is no significant stenosis at the aortic bifurcation nor within the common and external iliac arteries nor at their junctions. There is also no significant aneurysmal dilatation of the internal iliac arteries. Both common femoral arteries exhibits some mural calcification but otherwise patent. There is multilevel mild disease throughout the SFA arteries in both thighs. There is no high-grade stenosis evident within these vessels, even within Gilson's canals. The SFA arteries are continuous with the bilateral popliteal arteries. There is suboptimal visualization of the in tire popliteal arteries because of the bilateral knee prostheses. Do not appear to be obvious popliteal artery aneurysms but there is some atherosclerotic involvement of the bilateral popl iteal arteries evident. There is three-vessel runoff in the calves with mild multifocal disease in these vessels. The dominant runoff vessel in both calves is the posterior tibial artery LOWER EXTREMITY SOFT TISSUES: There is fatty atrophy of the most lateral of the hamstring muscles in the posterior left thigh, this being the left biceps femoris. Probably related to prior remote tearing of this structure. There is an abnormal fluid collection on the anterolateral aspect of the right calf approximately the mid calf level which measures 6.5 cm AP by 3 cm wide by 4.5 cm craniocaudal. There is no gas in this collection.. ABDOMEN There is no ascites. LIVER: There are no focal hepatic lesions nor dilatation of intrahepatic ducts. GALLBLADDER/BILIARY: Appears to be surgically absent. CBD is not dilated. PANCREAS: No evidence of pancreatic mass nor dilatation of the pancreatic duct. SPLEEN: Spleen is not enlarged. There are no intrasplenic lesions. ADRENALS: There are no significant adrenal masses. KIDNEYS: Both kidneys appear somewhat atrophic.. ABDOMINAL AORTA: See above LYMPH NODES: There is no retroperitoneal nor para-aortic adenopathy. No obvious mesenteric masses. ABDOMINAL WALL: No evidence of significant anterior abdominal wall hernia. GI: There is no evidence of bowel obstruction, free air, nor abscess. PELVIS: LYMPH NODES: There is no intrapelvic nor inguinal adenopathy. GI: No evidence of appendicitis.No evidence of sigmoid diverticulitis. URINARY BLADDER: Bladder is collapsed around a Romero catheter. Cannot exclude bladder neoplasm. REPRODUCTIVE: Prostate mildly enlarged. Seminal vesicles unremarkable. OSSEOUS: Bilateral knee prostheses. No significant osseous lesions. Wedge compression fracture of T11 noted IMPRESSION: 1. Evaluation of the popliteal arteries is limited due to bilateral knee prostheses. 2. No significant stenosis in the inflow vessels of the lower extremities. There is some plaque evident in the distal SFA arteries but without critical stenosis. There is also three-vessel runoff in both calves with mild-moderate disease in these runoff vessels. The dominant runoff vessel in each calf is the posterior tibial artery. 3. There is an abnormal fluid collection in the lateral aspect of the mid right calf with measurements as above. Either represents hematoma or abscess. 4. Incidentally noted is fatty atrophy of of biceps femora wrists muscle of the hamstring group in the posterior aspect of the left thigh. This is the most lateral the 3 muscles comprising this group of hamstring muscles. Urinary bladder is collapsed around the Romero catheter. Therefore cannot evaluate for neoplasm in the urinary bladder. Findings discussed by phone with ER provider following completion of this study 05/04/2025 RADIATION DOSE DELIVERED: Total DLP DATA REPOSITORY: All CT scans at this facility are submitted to the National Radiology Data Registry (NRDR) Dose Index Registry (DIR) with the [employer] ([employer]). RADIATION OPTIMIZATION: All CT scans at this facility use at least one of these dose optimization techniques: automated exposure control; mA and/or kV adjustment per patient size (includes targeted exams where dose is matched to clinical indication); or iterative reconstruction.
--- NOTE | 2025-05-04 10:51 | W.ED.GENAD ---
Discharge Plan Disposition Patient Disposition: Home Condition: Stable Discharge Details Clinical Impression: Hematoma of right lower leg, Ulcer of left lower extremity Primary Care Provider: David Massey ED Provider: Buzz Craig Home Meds and New Rx's Prescriptions: Continued metformin 1,000 mg tablet 1,000 mg PO BID polyethylene glycol 3350 [Miralax] 17 gram/dose powder 17 g PO DAILY PRN atorvastatin 40 mg tablet 40 mg PO DAILY metoprolol tartrate 50 mg tablet 50 mg PO BID (DME) pen needle, diabetic [BD Ultra-Fine Claribel Pen Needle] 32 gauge x 5/32 needle See Rx Instructions .Route Rx Instructions: As directed (DME) Dexcom G7 Glue Size Machine Operator Misc See Rx Instructions .Route Rx Instructions: As directed (DME) Dexcom G7 Sensor Device See Rx Instructions .Route Rx Instructions: As directed nystatin [Nystop] 100,000 unit/gram powder 1 applic topical BID (DME) blood sugar diagnostic Strip See Rx Instructions .Route Rx Instructions: As directed (DME) lancets 33 gauge misc See Rx Instructions .Route Rx Instructions: As directed (DME) OneTouch Ultra Test Strip See Rx Instructions .Route Rx Instructions: As directed Eliquis 5 mg tablet 5 mg PO BID Qty: 180 3RF levetiracetam 500 mg tablet 500 mg PO BID Qty: 180 3RF furosemide 20 mg tablet 20 mg PO DAILY Patient Comments: Take 1 tablet by mouth every morning Dr. Cuellar- Cardiology lisinopril 5 mg tablet 5 mg PO DAILY diltiazem HCl 120 mg capsule,extended release 24hr 120 mg PO BID levothyroxine 50 mcg tablet 50 mcg PO DAILY Patient Comments: Take 1 tablet by mouth once a day Take on an empty stomach 30 minutes before breakfast or other medications cefpodoxime 200 mg tablet 200 mg PO Q12H 14 Days Qty: 28 0RF Rx Instructions: must administer with a meal/food Discharge Instructions Instructions: Kay Negro, Wound Care ED Additional Instructions: You were seen in the emergency department for your father's multiple leg ulcers, his left medial hermosillo wound was irrigated, please direct home health visiting nurses to irrigate and change the dressing, Dr. Frost also instructed you on how to change the dressing as well, Dr. Frost evaluated the swelling to his right leg this is likely a hematoma or collection of blood like a bruise under the skin, they will follow-up with you with an office visit for this, the small ulcers of his toes appear to be ischemic likely in the setting of peripheral artery disease, please seek a primary care referral to vascular surgery. Please return to the emergency department for any severe increase in swelling, red streaking up the legs, fever, nausea, altered mental status or any other emergent concerns Referrals: David Massey MD [Primary Care Provider, Medicine] Discharge Data Discharge Date/Time-TO BE ENTERED AT DEPARTURE: 05/04/25 14:34 HPI General Date/Time Provider Initiated Documentation: 05/04/25 08:54. HPI Narrative: 74 year-old male presents to ED today by EMS with a chief complaint of chronic leg wounds- expanding to R hermosillo, and some discharge at the L medial distal hermosillo with onset chronically. Patient has dementia- presents with his son, seen by HomeHealth RN this morning. Quality described as unreliable historian but not in overt pain, no radiation to fevers, alteration from baseline per son, patient denies abdominal pain and chest pain. Severity is described as unable to quantify. Palliating factors include dressing changes to various leg sores. Provoking factors include nothing specific. Patient not anticoagulated. Related Data Home Medications ?Medication ?Instructions ?Recorded ?Confirmed furosemide 20 mg tablet 20 mg PO DAILY 06/01/21 05/04/25 metformin 1,000 mg tablet 1,000 mg PO BID 01/23/22 05/04/25 levothyroxine 50 mcg tablet 50 mcg PO DAILY 12/03/22 05/04/25 atorvastatin 40 mg tablet 40 mg PO DAILY 12/31/22 05/04/25 metoprolol tartrate 50 mg tablet 50 mg PO BID 04/29/23 05/04/25 lisinopril 5 mg tablet 5 mg PO DAILY 01/28/24 05/04/25 blood sugar diagnostic 02/21/24 05/04/25 blood sugar diagnostic (OneTouch 02/21/24 05/04/25 Ultra Test strips) blood-glucose sensor (Dexcom G7 02/21/24 05/04/25 Sensor device) blood-glucose,home theatre technician,cont 02/21/24 05/04/25 (Dexcom G7 Glue Size Machine Operator) lancets 33 gauge 02/21/24 05/04/25 nystatin 100,000 unit/gram topical 1 applic topical BID 02/21/24 05/04/25 powder (Nystop) pen needle, diabetic 32 gauge x 02/21/24 05/04/25 5/32 (BD Ultra-Fine Claribel Pen Needle) diltiazem HCl 120 mg 120 mg PO BID 02/24/24 05/04/25 capsule,extended release 24 hr polyethylene glycol 3350 17 17 g PO DAILY PRN 06/25/24 05/04/25 gram/dose oral powder (Miralax) apixaban 5 mg tablet (Eliquis) 5 mg PO BID #180 tabs 07/28/24 05/04/25 levetiracetam 500 mg tablet 500 mg PO BID #180 tabs 11/17/24 05/04/25 cefpodoxime 200 mg tablet 200 mg PO Q12H 14 days #28 tabs 04/25/25 05/04/25 Previous Rx's ?Medication ?Instructions ?Recorded apixaban 5 mg tablet (Eliquis) 5 mg PO BID #180 tabs 07/28/24 levetiracetam 500 mg tablet 500 mg PO BID #180 tabs 11/17/24 cefpodoxime 200 mg tablet 200 mg PO Q12H 14 days #28 tabs 04/25/25 Allergies Allergy/AdvReac Type Severity Reaction Status Date / Time No Known Allergies Allergy Verified 05/04/25 08:55 General Stated Complaint: RashLesion TREVOR: 3 Review of Systems All systems reviewed & are unremarkable except as noted in HPI and below Exam Narrative Exam Narrative: GENERAL APPEARANCE: Well-nourished, non-toxic, awake and alert, atraumatic, no acute distress. SKIN: Warm, pink, dry, several ischemic appearing early ulcerations on his toes, most prominent one on his R big toe, poor pedal pulses bilaterally, large flucutant swelling to lateral R hermosillo/calf 10x5cm, smaller but deep chronic ulceration to medial L hermosillo just above ankle 3x3cm HEAD: Normocephalic, atraumatic, normal hair distribution for gender/age. EYES: Normal conjunctiva, no exudates on lids/lashes. ENT: Nares patent, no circumoral cyanosis, no facial swelling NECK: Supple, trachea midline, painless cervical ROM. LUNGS/CHEST: Lungs CTA bilaterally- no rhonchi/rales/wheezes diffusely, non-labored respirations, normal A/P diameter, symmetrical expansion, no chest wall deformity HEART (CV/PV): Irregular rate and rhythm without murmur, no peripheral edema, no JVD. ABDOMEN: Soft, non-distended, no guarding, no tenderness. MSK: Normal ROM, no swelling/deformity to bilateral UEs or LEs, moving all extremities without weakness, no cyanosis, spine midline without tenderness, normal curvature. NEURO: Mental Status - at his baseline No facial droop, no forehead involvement. Motor: No focal weakness - strength 5/5 in bilateral UEs and LEs, proximal and distal, symmetric. Sensory: sensation intact to light touch globally. Gait normal: patient ambulated without ataxia into ED room. PSYCH: euthymic, cooperative, pleasant, appropriate speech Course Vital Signs Vital signs: Vital Signs Temperature 36.7 C 05/04/25 08:46 Pulse 86 05/04/25 08:46 Respiratory Rate 16 05/04/25 08:46 Blood Pressure 161/115 H 05/04/25 08:46 Pulse Oximetry 100 05/04/25 08:46 Temperature 36.7 C 05/04/25 08:46 Temperature Source Oral 05/04/25 08:46 Pulse 80 05/04/25 10:30 Pulse 86 05/04/25 10:30 Respiratory Rate 23 05/04/25 10:40 Blood Pressure 176/76 H 05/04/25 10:01 Blood Pressure Mean 110 05/04/25 10:01 Pulse Oximetry 97 05/04/25 10:30 Oxygen Delivery Method Room Air 05/04/25 08:46 Oxygen Flow Rate 0 05/04/25 08:46 Pain Level 0 05/04/25 08:46 Lab/Test Results Lab/Test Results: Laboratory Tests Range/Units 05/04/25 09:15 WBC (4.4-10.8) 10^3/uL 6.57 RBC (4.36-5.78) 10^6/uL 4.01 L Hgb (13.5-17.5) g/dL 10.6 L Hct (40.0-50.0) % 33.9 L MCV (80-95) fL 85 MCH (27.0-33.0) pg 26.4 L MCHC (32.0-36.0) % 31.3 L RDW (11.8-14.1) % 15.8 H Plt Count (130-400) 10^3/uL 264 MPV (8.0-11.0) fL 8.7 Immature Gran % % 0.2 Neutrophils % % 72.4 Lymphocytes % % 14.3 Monocytes % % 9.9 Eosinophils % % 2.7 Basophils % % 0.5 Nucleated RBC % (0.0-0.3) % 0.0 Absolute Neutrophils (1.2-6.7) 10^3/uL 4.76 Absolute Lymphocytes (1.2-3.4) 10^3/uL 0.94 L Absolute Monocytes (0.1-0.8) 10^3/uL 0.65 Absolute Eosinophils (0.0-0.7) 10^3/uL 0.18 Absolute Basophils (0.0-0.2) 10^3/uL 0.03 VBG Lactate (<or=2.0) mmol/L 1.2 Sodium (136-145) mmol/L 139 Potassium (3.5-5.1) mmol/L 3.9 Chloride (98-107) mmol/L 102 Carbon Dioxide (21.0-32.0) mmol/L 27.7 Anion Gap (3-11) mmol/L 9.3 BUN (7-18) mg/dL 32 H Creatinine (0.70-1.30) mg/dL 1.7 H Est GFR (CKD-EPI 2020) (mL/min/1.73m2) 41.52 Glucose (74-106) mg/dL 162 H Calcium (8.5-10.1) mg/dL 9.1 Total Bilirubin (0.2-1.0) mg/dL 1.0 AST (15-37) U/L 11 L ALT (16-63) U/L 17 Alkaline Phosphatase (46-116) U/L 106 Total Protein (6.4-8.2) g/dL 7.2 Albumin (3.4-5.0) g/dL 3.1 L Medical Decision Making This dictation utilizes [id number] dictation software and may contain unedited grammatical errors. 74 year-old male presents to ED today by EMS with a chief complaint of chronic leg wounds- expanding to R hermosillo, and some discharge at the L medial distal hermosillo with onset chronically. Patient has dementia- presents with his son, seen by HomeHealth RN Saturday. Quality described as unreliable historian but not in overt pain, no radiation to fevers, alteration from baseline per son, patient denies abdominal pain and chest pain. Severity is described as unable to quantify. Palliating factors include dressing changes to various leg sores. Provoking factors include nothing specific. Patients' medical history: Atrial fibrillation, peripheral vascular disease, history of cerebral infarction, hypertension, T2DM, diabetic leg ulcers, status post TKA bilaterally, seizure. Family and social history: Lives at home with his son, gets home health multiple times per week, eats normal diet. Pertinent exam findings / vital signs include several ischemic appearing early ulcerations on his toes, most prominent one on his R big toe, poor pedal pulses bilaterally, large flucutant swelling to lateral R hermosillo/calf 10x5cm, smaller but deep chronic ulceration to medial L hermosillo just above ankle 3x3cm, baseline cardiopulmonary status, neuro baseline. Differential / pathologies of concern include PAD, hematoma, cellulitis, abscess, chronic venous ulcers, diabetic foot wounds. Diagnostic studies of: -CBC, lactate, CMP, CTA aorta with runoffs to evaluate the lower extremity and vascular status. - CBC shows no leukocytosis, no left shift-does have anemia of 10.6-but has been this low in the past - Lactate is negative - CMP without actionable abnormality with baseline VERONICA creatinine 1.7 - EKG shows atrial fibrillation which is chronic for the patient at 90 bpm with no signs of STEMI, no changes from priors, no diffuse ST depressions or T wave abnormalities - CTA of the aorta and runoff show fluid collection in the right calf-6.5 x 3 x 4.5, no gas possible hematoma versus abscess, also on my read they can see the wound the left medial hermosillo is much smaller, he has 3 level runoff and bilateral feet but has multilevel stenosis Interventions of: - Consulted with Dr. Frost of general surgery, he feels that the fluid collections are likely hematomas as he has had these in the past, he has many chronic comorbidities that would make simple ED incision and drainage not amenable-no reason to admit the patient and he is going to follow-up with general surgery in office next week- Dr. Frost demonstrated irrigation of ulcer to L hermosillo, and directed that Home Health be instructed to do the same. ED Course/Assessment/Plan: 74-year-old male presents with some chronic leg wounds, has some ischemic appearing ulceration most focal in the right great toe which warranted CTA of the aorta and runoff to evaluate for critical PAD, he also has a large fluid collection in the right lateral calf as well as left medial hermosillo chronic wound initially formed from a hematoma that opened up. Dr. Frost of surgery evaluated the patient here in the ED, feels that the right fluid collection is a hematoma, would be better served by surgical drainage. Counseled the son on wound care, provided instructions for home health to perform irrigation and wound care, strict return criteria for any red streaking up the leg, fever, nausea, weakness, signs of severe worsening infection. Findings not consistent with abscess, sepsis, ischemic limb. Disposition of ulcer of left lower extremity, hematoma right lower leg. Patient verbalized understanding of the plan and return to ED criteria and engaged in shared decision making. Medical Records Medical records reviewed: Yes I reviewed the patient's medical records. Imaging Data Radiologic Study: Attestation: I personally reviewed and interpreted this imaging study as follows: Imaging: CT Scan Radiologist's impression: EXAM: CT ABD AORTA CTA W RUNOFF CLINICAL HISTORY: lower leg lesions; ?PAD. TECHNIQUE: Imaging Protocol: Axial computed tomography images with coronal and sagittal reformatted images were created and reviewed CONTRAST MATERIAL: Intravenous: Omnipaque 350 Contrast volume:100 ml Oral: None COMPARISON: No exams were available for comparison FINDINGS: LOWER EXTREMITIES VASCULAR: There is cardiomegaly. There is peripheral calcification but without prominent plaque with in the abdominal aorta. The abdominal aorta exhibits upper normal size. Similar findings in the common iliac arteries. There is no significant stenosis at the aortic bifurcation nor within the common and external iliac arteries nor at their junctions. There is also no significant aneurysmal dilatation of the internal iliac arteries. Both common femoral arteries exhibits some mural calcification but otherwise patent. There is multilevel mild disease throughout the SFA arteries in both thighs. There is no high-grade stenosis evident within these vessels, even within Gilson's canals. The SFA arteries are continuous with the bilateral popliteal arteries. There is suboptimal visualization of the in tire popliteal arteries because of the bilateral knee prostheses. Do not appear to be obvious popliteal artery aneurysms but there is some atherosclerotic involvement of the bilateral popliteal arteries evident. There is three-vessel runoff in the calves with mild multifocal disease in these vessels. The dominant runoff vessel in both calves is the posterior tibial artery LOWER EXTREMITY SOFT TISSUES: There is fatty atrophy of the most lateral of the hamstring muscles in the posterior left thigh, this being the left biceps femoris. Probably related to prior remote tearing of this structure. There is an abnormal fluid collection on the anterolateral aspect of the right calf approximately the mid calf level which measures 6.5 cm AP by 3 cm wide by 4.5 cm craniocaudal. There is no gas in this collection.. ABDOMEN There is no ascites. LIVER: There are no focal hepatic lesions nor dilatation of intrahepatic ducts. GALLBLADDER/BILIARY: Appears to be surgically absent. CBD is not dilated. PANCREAS: No evidence of pancreatic mass nor dilatation of the pancreatic duct. SPLEEN: Spleen is not enlarged. There are no intrasplenic lesions. ADRENALS: There are no significant adrenal masses. KIDNEYS: Both kidneys appear somewhat atrophic.. ABDOMINAL AORTA: See above LYMPH NODES: There is no retroperitoneal nor para-aortic adenopathy. No obvious mesenteric masses. ABDOMINAL WALL: No evidence of significant anterior abdominal wall hernia. GI: There is no evidence of bowel obstruction, free air, nor abscess. PELVIS: LYMPH NODES: There is no intrapelvic nor inguinal adenopathy. GI: No evidence of appendicitis.No evidence of sigmoid diverticulitis. URINARY BLADDER: Bladder is collapsed around a Romero catheter. Cannot exclude bladder neoplasm. REPRODUCTIVE: Prostate mildly enlarged. Seminal vesicles unremarkable. OSSEOUS: Bilateral knee prostheses. No significant osseous lesions. Wedge compression fracture of T11 noted IMPRESSION: 1. Evaluation of the popliteal arteries is limited due to bilateral knee prostheses. 2. No significant stenosis in the inflow vessels of the lower extremities. There is some plaque evident in the distal SFA arteries but without critical stenosis. There is also three-vessel runoff in both calves with mild-moderate disease in these runoff vessels. The dominant runoff vessel in each calf is the posterior tibial artery. 3. There is an abnormal fluid collection in the lateral aspect of the mid right calf with measurements as above. Either represents hematoma or abscess. 4. Incidentally noted is fatty atrophy of of biceps femora wrists muscle of the hamstring group in the posterior aspect of the left thigh. This is the most lateral the 3 muscles comprising this group of hamstring muscles. Urinary bladder is collapsed around the Romero catheter. Therefore cannot evaluate for neoplasm in the urinary bladder. Findings discussed by phone with ER provider following completion of this study 05/04/2025 Lab Data Lab results reviewed: Yes I reviewed the patient's lab results. Labs: Laboratory Tests Range/Units 05/04/25 09:15 WBC (4.4-10.8) 10^3/uL 6.57 RBC (4.36-5.78) 10^6/uL 4.01 L Hgb (13.5-17.5) g/dL 10.6 L Hct (40.0-50.0) % 33.9 L MCV (80-95) fL 85 MCH (27.0-33.0) pg 26.4 L MCHC (32.0-36.0) % 31.3 L RDW (11.8-14.1) % 15.8 H Plt Count (130-400) 10^3/uL 264 MPV (8.0-11.0) fL 8.7 Immature Gran % % 0.2 Neutrophils % % 72.4 Lymphocytes % % 14.3 Monocytes % % 9.9 Eosinophils % % 2.7 Basophils % % 0.5 Nucleated RBC % (0.0-0.3) % 0.0 Absolute Neutrophils (1.2-6.7) 10^3/uL 4.76 Absolute Lymphocytes (1.2-3.4) 10^3/uL 0.94 L Absolute Monocytes (0.1-0.8) 10^3/uL 0.65 Absolute Eosinophils (0.0-0.7) 10^3/uL 0.18 Absolute Basophils (0.0-0.2) 10^3/uL 0.03 VBG Lactate (<or=2.0) mmol/L 1.2 Sodium (136-145) mmol/L 139 Potassium (3.5-5.1) mmol/L 3.9 Chloride (98-107) mmol/L 102 Carbon Dioxide (21.0-32.0) mmol/L 27.7 Anion Gap (3-11) mmol/L 9.3 BUN (7-18) mg/dL 32 H Creatinine (0.70-1.30) mg/dL 1.7 H Est GFR (CKD-EPI 2020) (mL/min/1.73m2) 41.52 Glucose (74-106) mg/dL 162 H Calcium (8.5-10.1) mg/dL 9.1 Total Bilirubin (0.2-1.0) mg/dL 1.0 AST (15-37) U/L 11 L ALT (16-63) U/L 17 Alkaline Phosphatase (46-116) U/L 106 Total Protein (6.4-8.2) g/dL 7.2 Albumin (3.4-5.0) g/dL 3.1 L PFSH All Active Problems (Updated 05/04/25 @ 14:14 by KAY Yepez) Ulcer of left lower extremity (Acute) Hematoma of right lower leg (Acute) A-fib (Chronic) Hypothyroid (Chronic) Multiple skin tears (Acute) Acute cystitis (Acute) Dementia (Chronic) Agitated (Acute) Anticoagulated (Acute) Head injury (Acute) ACP (advance care planning) (Acute) Caregiver stress (Acute) Financial difficulties (Acute) Need for home health care (Acute) Impaired instrumental activities of daily living (Acute) Deficit in activities of daily living (ADL) (Acute) Frequent UTI (Acute) Palliative care patient (Acute) UTI (urinary tract infection) due to urinary indwelling Romero catheter (Acute) Atrial fibrillation with RVR (Acute) Altered mental state (Acute) Sepsis (Acute) Seizure (Acute) New onset seizure without head trauma (Acute) Global aphasia (Acute) Stroke (Chronic) Dysplastic colon polyp (Acute) Urothelial carcinoma (Acute) 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) Screening for colon cancer (Acute) Recurrent nephrolithiasis (Acute) Medical History UTI (urinary tract infection) Dystrophia unguium Edema, lower extremity Candidiasis of skin Peripheral venous insufficiency Lower urinary tract obstructive syndrome Weakness of both lower extremities Uses self-applied continuous glucose monitoring device Cognitive decline Cerebral infarction Hyperbilirubinemia Cardiomegaly Partial epilepsy 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 Atrial fibrillation with rapid ventricular response Obstructive sleep apnea syndrome (08/10/08) cpap Obstructive uropathy Peripheral neuropathy Venous insufficiency History of depression Iron deficiency CARLOS A on CPAP Hypertension Type 2 diabetes mellitus Dementia Ulcer of hermosillo limited to breakdown of skin Acute kidney injury superimposed on chronic kidney disease Creatinine elevation Elevated WBCs Hyperglycemia Ureterolithiasis Diabetic leg ulcer Phimosis Venous insufficiency (chronic) (peripheral) Bladder cancer Gross hematuria Chronic venous stasis Noncompliance Anxiety (08/10/08) Asbestosis (08/10/08) Asthma (10/02/12) pt. denies this Carpal tunnel syndrome Olecranon bursitis Peripheral neuralgia Atopic conjunctivitis (10/22/13) Benign prostatic hyperplasia (02/25/13) Depressive disorder (02/25/13) Diabetes mellitus (02/25/13) Essential hypertension (06/24/13) Frequency of micturition (01/03/16) Glaucoma (10/22/13) B/L Hyperlipidemia (02/25/13) Hypermetropia (10/22/13) Hypogonadism Idiopathic peripheral neuropathy Low back pain (08/10/08) Nuclear senile cataract (10/22/13) Obesity (08/10/08) Aviva-en-y 02/2014 Osteoarthritis (08/10/08) BILATERAL KNEE replacements Peptic reflux disease (08/10/08) Presbyopia (10/22/13) Pterygium (08/10/08) LEFT EYE Regular astigmatism (10/22/13) Sensorineural hearing loss, bilateral (09/05/17) Tubular adenoma Tubular and tubulovillous adenoma 2011 --suggested repeat 2017 Umbilical hernia (08/18/12) Urgency of urination (01/03/16) Varicose veins of lower extremity (08/10/08) Urinary tract infection Chronic anticoagulation Atrial fibrillation Surgical History S/P laparoscopic-assisted sigmoidectomy Hx of total knee arthroplasty Pt reports he has had a left and right knee repacement. Pt doesnt remember when and thinks he had it done at [facility] Status post cholecystectomy S/P cholecystectomy (~01/04/21) acute hemorrhagic cholecystitis and xanthogranulomatous inflammation S/P partial colectomy (~05/09/20) History of transurethral destruction of bladder lesion S/P colonoscopy Haddad-2011- tubular and tubulovillous polyps Santiago- 2019- sessile serrated with low grade dysplacia, tubullovillous with high grade dysplacia and tubular adenomas Status post abdominoplasty (05/23/16) Status post tonsillectomy Status post total knee replacement B/L Vasectomy Aviva-en-y surgery for weight loss Ronnell Fundoplication Repair of umbilical hernia Laparoscopic Family History Mother Cancer Father Heart disease Sister Cancer Sister No problems noted. Brother Cancer Brother No problems noted. Brother No problems noted. Son No problems noted. Son No problems noted. Son No problems noted. Social History Smoking/Tobacco Use Status: Never Second Hand Exposure: Yes Smoking risk assessment performed?: Yes Alcohol Intake: never Drug use: Never Substance use type: does not use Caregiver/Support person: No Household members: other Details: son Housing: house Communication Needs: None Education Level: high school Do you need help understanding health information?: Never Pets and animals: No Do you think of yourself as: straight/heterosexual Current gender identity: male What is your relationship status?: How often do you talk on the phone with friends or family?: once per week How often do you get together with friends or relatives?: decline to answer How often do you attend amish or mu-ism services?: decline to answer Do you belong to any clubs or organized social groups?: no Panel score (0-1 are the most socially isolated patients): 0 What type of physical activity do you participate in: walking Duration: 15-30 minutes/day Frequency: 1-2 times per week Velia/Baptism: Quaker Special velia needs: No Seatbelt use: always Helmet use: No Drive intox or ride w/intox roll off driver: No Do you feel safe at home: Yes Do you feel safe in your relationship?: Yes
--- NOTE | 2025-05-04 14:34 | W.SURGCON ---
Date of service: 05/04/25 Time of Service: 14:34 Assessment and Plan Assessment and plan (1) Hematoma of right lower leg: Status: Acute Assessment and plan: Based on the history and exam, I really think that this is a hematoma in the right lower extremity secondary to a fall on therapeutic anticoagulation. At this point, I do not think there is any benefit to draining it. The skin looks like it is perfused, and I do not think it is at all compromised. And without any real compelling source of infection, I think adding more wounds to his legs would only complicate these issues. I talked with him and his family for a while about the other wounds, especially the open wound on the left lower extremity. They already have visiting nurses coming twice a week. I would consider this inadequately treated prior to today. Again, I debrided it back to clean healthy tissue. And I used some sterile wound packing and reviewed with the son how to change the packing. At the very least, this should be done by the visiting nurses, but I did explain that the more frequent this is changed, the better the wound will do. Obviously, this is a tough situation since Eugene is quite debilitated from his other comorbidities, and it seems like resources available to them to help care for these wounds are quite limited. I explained to them very clearly that I think he would benefit from a more advanced level of care, but Eugene is quite adamant about getting home. Certainly, we are more than happy to see them in the office in the coming days or weeks if that is helpful for wound care. History of Present Illness History of Present Illness Chief Complaint: Swollen right leg Narrative: Eugene is 74 years old. His son brought him to the emergency department today when he noticed swelling on the anterior lateral aspect of the right leg. He is not certain how long it has been there. Eugene offers no specific complaints about it. Family suspects it was related to a fall that occurred approximately 10 days ago. They tell me that Eugene had an unwitnessed fall down several steps. Although he did have CT scans of his head and torso performed at that encounter, they did not extend down to the extremities. Today, Eugene has a normal white blood cell count although it is worth noting that he is taking cefpodoxime for a complicated urinary tract infection. He is afebrile. He does have swelling over the anterior lateral aspect of the right lower extremity. He underwent CT angiogram today of both lower extremities. Although there is three-vessel runoff into the feet, there is note of moderate vascular disease in those distributions. There is also note made of a fluid collection in the anterior lateral aspect of the right lower extremity that is congruent with the physical exam. Review of Systems Constitutional Constitutional: Denies fever(s) and Reports frequent falls Eyes Eyes: Reports system reviewed and no additional complaints, except as documented ENT Ears, Nose, Mouth, and Throat: Reports system reviewed and no additional complaints, except as documented Musculoskeletal Comments: Skin is pale, and hairless below the knee, with some chronic features of peripheral vascular disease. There are no palpable pulses in the feet. There are multiple superficial wounds on bilateral toes and feet. The right lower extremity has nontender fluctuant area over the anterior lateral aspect. It appears consistent with some resolving ecchymosis. There is no erythema. It is not tender. Incidentally, after removing all of his bandages, there is an open wound on the left lower extremity medial to the tibia just above the medial malleolus. It is filled with old hematoma. I debrided all of this clean. The wound itself is about 2-1/2 cm x 3 cm x 3 cm deep. There are no signs of infection. Neurologic Neurologic: Reports frequent falls PFSH All Active Problems (Updated 05/04/25 @ 14:14 by KAY Yepez) Ulcer of left lower extremity (Acute) Hematoma of right lower leg (Acute) A-fib (Chronic) Hypothyroid (Chronic) Multiple skin tears (Acute) Acute cystitis (Acute) Dementia (Chronic) Agitated (Acute) Anticoagulated (Acute) Head injury (Acute) ACP (advance care planning) (Acute) Caregiver stress (Acute) Financial difficulties (Acute) Need for home health care (Acute) Impaired instrumental activities of daily living (Acute) Deficit in activities of daily living (ADL) (Acute) Frequent UTI (Acute) Palliative care patient (Acute) UTI (urinary tract infection) due to urinary indwelling Romero catheter (Acute) Atrial fibrillation with RVR (Acute) Altered mental state (Acute) Sepsis (Acute) Seizure (Acute) New onset seizure without head trauma (Acute) Global aphasia (Acute) Stroke (Chronic) Dysplastic colon polyp (Acute) Urothelial carcinoma (Acute) 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) Screening for colon cancer (Acute) Recurrent nephrolithiasis (Acute) Medical History UTI (urinary tract infection) Dystrophia unguium Edema, lower extremity Candidiasis of skin Peripheral venous insufficiency Lower urinary tract obstructive syndrome Weakness of both lower extremities Uses self-applied continuous glucose monitoring device Cognitive decline Cerebral infarction Hyperbilirubinemia Cardiomegaly Partial epilepsy 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 Atrial fibrillation with rapid ventricular response Obstructive sleep apnea syndrome (08/10/08) cpap Obstructive uropathy Peripheral neuropathy Venous insufficiency History of depression Iron deficiency CARLOS A on CPAP Hypertension Type 2 diabetes mellitus Dementia Ulcer of [place] limited to breakdown of skin Acute kidney injury superimposed on chronic kidney disease Creatinine elevation Elevated WBCs Hyperglycemia Ureterolithiasis Diabetic leg ulcer Phimosis Venous insufficiency (chronic) (peripheral) Bladder cancer Gross hematuria Chronic venous stasis Noncompliance Anxiety (08/10/08) Asbestosis (08/10/08) Asthma (07/08/12) pt. denies this Carpal tunnel syndrome Olecranon bursitis Peripheral neuralgia Atopic conjunctivitis (10/22/13) Benign prostatic hyperplasia (02/25/13) Depressive disorder (02/25/13) Diabetes mellitus (02/25/13) Essential hypertension (06/24/13) Frequency of micturition (01/03/16) Glaucoma (10/22/13) B/L Hyperlipidemia (02/25/13) Hypermetropia (10/22/13) Hypogonadism Idiopathic peripheral neuropathy Low back pain (08/10/08) Nuclear senile cataract (10/22/13) Obesity (08/10/08) Aviva-en-y 02/2014 Osteoarthritis (08/10/08) BILATERAL KNEE replacements Peptic reflux disease (08/10/08) Presbyopia (10/22/13) Pterygium (08/10/08) LEFT EYE Regular astigmatism (10/22/13) Sensorineural hearing loss, bilateral (09/05/17) Tubular adenoma Tubular and tubulovillous adenoma 2011 --suggested repeat 2017 Umbilical hernia (08/18/12) Urgency of urination (01/03/16) Varicose veins of lower extremity (08/10/08) Urinary tract infection Chronic anticoagulation Atrial fibrillation Surgical History S/P laparoscopic-assisted sigmoidectomy Hx of total knee arthroplasty Pt reports he has had a left and right knee repacement. Pt doesnt remember when and thinks he had it done at [facility] Status post cholecystectomy S/P cholecystectomy (~01/04/21) acute hemorrhagic cholecystitis and xanthogranulomatous inflammation S/P partial colectomy (~05/09/20) History of transurethral destruction of bladder lesion S/P colonoscopy Haddad-2011- tubular and tubulovillous polyps Henderson2019- sessile serrated with low grade dysplacia, tubullovillous with high grade dysplacia and tubular adenomas Status post abdominoplasty (05/23/16) Status post tonsillectomy Status post total knee replacement B/L Vasectomy Aviva-en-y surgery for weight loss Ronnell Fundoplication Repair of umbilical hernia Laparoscopic Family History Mother Cancer Father Heart disease Sister Cancer Sister No problems noted. Brother Cancer Brother No problems noted. Brother No problems noted. Son No problems noted. Son No problems noted. Son No problems noted. Social History Smoking/Tobacco Use Status: Never Second Hand Exposure: Yes Smoking risk assessment performed?: Yes Alcohol Intake: never Drug use: Never Substance use type: does not use Caregiver/Support person: No Household members: other Details: son Housing: house Communication Needs: None Education Level: high school Do you need help understanding health information?: Never Pets and animals: No Do you think of yourself as: straight/heterosexual Current gender identity: male What is your relationship status?: How often do you talk on the phone with friends or family?: once per week How often do you get together with friends or relatives?: decline to answer How often do you attend latter-day or pentecostal services?: decline to answer Do you belong to any clubs or organized social groups?: no Panel score (0-1 are the most socially isolated patients): 0 What type of physical activity do you participate in: walking Duration: 15-30 minutes/day Frequency: 1-2 times per week Velia/Rastafari: Latter-Day Special velia needs: No Seatbelt use: always Helmet use: No Drive intox or ride w/intox racing driver: No Do you feel safe at home: Yes Do you feel safe in your relationship?: Yes Results Last Vital Signs Temp 98.0 F 05/04/25 08:46 Pulse 76 05/04/25 13:40 Resp 30 H 05/04/25 13:50 BP 176/76 H 05/04/25 10:01 Pulse Ox 99 05/04/25 13:40 Labs 05/04/25 09:15 05/04/25 09:15 Labs: Laboratory Results - last 24 hr 05/04/25 09:15 WBC 6.57 RBC 4.01 L Hgb 10.6 L Hct 33.9 L MCV 85 MCH 26.4 L MCHC 31.3 L RDW 15.8 H Plt Count 264 MPV 8.7 Immature Gran % 0.2 Neutrophils % 72.4 Lymphocytes % 14.3 Monocytes % 9.9 Eosinophils % 2.7 Basophils % 0.5 Nucleated RBC % 0.0 Absolute Neutrophils 4.76 Absolute Lymphocytes 0.94 L Absolute Monocytes 0.65 Absolute Eosinophils 0.18 Absolute Basophils 0.03 VBG Lactate 1.2 Sodium 139 Potassium 3.9 Chloride 102 Carbon Dioxide 27.7 Anion Gap 9.3 BUN 32 H Creatinine 1.7 H Est GFR (CKD-EPI 2020) 41.52 Glucose 162 H Calcium 9.1 Total Bilirubin 1.0 AST 11 L ALT 17 Alkaline Phosphatase 106 Total Protein 7.2 Albumin 3.[address] scan report/results: report reviewed and image reviewed
== END 2025-05-04 14:34 | disposition home or self-care (01) ==
PROVIDERS: Emergency Provider Physician Assistant; PCP Family Medicine
DX: S80.11XA Contusion of right lower leg, initial encounter (principal); L97.829 Non-pressure chronic ulcer of other part of left lower leg with unspecified severity; L97.519 Non-pressure chronic ulcer of other part of right foot with unspecified severity; X58.XXXA Exposure to other specified factors, initial encounter
CPT/HCPCS: 99284; 99285; 75635; 80053; 93005; 83605; 85025; 93010; J3490; Q9967

== ENCOUNTER 2025-05-17 16:30 | Outpatient (REF) | payer MEDICARE, MEDICAID, SELFPAY ==
[2025-05-17 17:38] LABS: Glucose Negative (Negative)
[2025-05-17 17:44] LABS: C & S Indicated? Yes; RBC >50 HPF (0-2); WBC >50 HPF (0-5)
== END 2025-05-17 16:31 | disposition home or self-care (01) ==
LOC: NCHCN 16:30
PROVIDERS: PCP Family Medicine; Visit Provider Family Medicine
DX: N39.0 Urinary tract infection, site not specified (principal)
CPT/HCPCS: 87077; 81003; 81015; 87086; 87186

== ENCOUNTER → 2025-05-19 10:59 | Outpatient (BNVA) | payer MEDICARE, MEDICAID, SELFPAY | PROVIDERS: PCP Family Medicine; Referring Provider Family Medicine; Visit Provider Physical Therapy Assistant | DX: S80.11XD Contusion of right lower leg, subsequent encounter (principal); L97.929 Non-pressure chronic ulcer of unspecified part of left lower leg with unspecified severity; W19.XXXD Unspecified fall, subsequent encounter | CPT/HCPCS: 97607 ==

== ENCOUNTER → 2025-05-24 07:55 | Outpatient (BNVA) | payer MEDICARE, MEDICAID, SELFPAY | PROVIDERS: PCP Family Medicine; Referring Provider Family Medicine; Visit Provider Student in an Organized Health Care Education/Training Program | DX: S80.11XD Contusion of right lower leg, subsequent encounter (principal); X58.XXXD Exposure to other specified factors, subsequent encounter | CPT/HCPCS: 97607 ==

== ENCOUNTER → 2025-05-27 07:54 | Outpatient (BNVA) | payer MEDICARE, MEDICAID, SELFPAY | PROVIDERS: PCP Family Medicine; Referring Provider Family Medicine; Visit Provider Physical Therapy Assistant | DX: S80.11XD Contusion of right lower leg, subsequent encounter (principal); X58.XXXD Exposure to other specified factors, subsequent encounter | CPT/HCPCS: 97607 ==

== ENCOUNTER → 2025-05-31 08:00 | Outpatient (BNVA) | payer MEDICARE, MEDICAID, SELFPAY | PROVIDERS: PCP Family Medicine; Referring Provider Family Medicine; Visit Provider Surgery | DX: Z51.89 Encounter for other specified aftercare (principal) | CPT/HCPCS: NC OV ==

== ENCOUNTER → 2025-06-03 11:23 | Outpatient (BNVA) | payer MEDICARE, MEDICAID, SELFPAY | PROVIDERS: PCP Family Medicine; Referring Provider Family Medicine; Visit Provider Physical Therapy Assistant | DX: S81.802D Unspecified open wound, left lower leg, subsequent encounter (principal); X58.XXXD Exposure to other specified factors, subsequent encounter | CPT/HCPCS: 99213 ==

== ENCOUNTER 2025-06-26 10:10 | Outpatient (REF) | payer MEDICARE, MEDICAID, SELFPAY | END 2025-06-26 10:11 | disposition home or self-care (01) | LOC: NCHCN 10:10 | PROVIDERS: PCP Family Medicine; Visit Provider Family Medicine | DX: R05.9 Cough, unspecified (principal) | CPT/HCPCS: 87070; 87205 ==

== ENCOUNTER 2025-08-08 11:52 | Emergency (ER) | payer MEDICARE, MEDICAID, SELFPAY ==
[2025-08-08 12:02] VITALS: BP 170/85; PULSE 95; RESP 12; TEMP 36.7; O2SAT 95
--- NOTE | 2025-08-08 12:13 | W.ED.GENAD ---
Discharge Plan Disposition Patient Disposition: Home Condition: Stable Discharge Details Clinical Impression: Thornton catheter status Primary Care Provider: David Massey ED Provider: Buzz Craig Home Meds and New Rx's Prescriptions: Continued metformin 1,000 mg tablet 1,000 mg PO BID polyethylene glycol 3350 [Miralax] 17 gram/dose powder 17 g PO DAILY PRN atorvastatin 40 mg tablet 40 mg PO DAILY metoprolol tartrate 50 mg tablet 50 mg PO BID (DME) pen needle, diabetic [BD Ultra-Fine Claribel Pen Needle] 32 gauge x /32 needle See Rx Instructions .Route Rx Instructions: As directed (DME) Dexcom G7 Ceramics Instructor Misc See Rx Instructions .Route Rx Instructions: As directed (DME) Dexcom G7 Sensor Device See Rx Instructions .Route Rx Instructions: As directed nystatin [Nystop] 100,000 unit/gram powder 1 applic topical BID (DME) blood sugar diagnostic Strip See Rx Instructions .Route Rx Instructions: As directed (DME) lancets 33 gauge misc See Rx Instructions .Route Rx Instructions: As directed (DME) OneTouch Ultra Test Strip See Rx Instructions .Route Rx Instructions: As directed levetiracetam 500 mg tablet 500 mg PO BID Qty: 180 3RF acetaminophen 500 mg capsule 500 mg PO Q6H PRN Rybelsus 14 mg tablet 14 mg PO DAILY Eliquis 5 mg tablet 5 mg PO BID Qty: 180 3RF furosemide 20 mg tablet 20 mg PO DAILY Patient Comments: Take 1 tablet by mouth every morning Dr. Cuellar- Cardiology lisinopril 5 mg tablet 5 mg PO DAILY diltiazem HCl 120 mg capsule,extended release 24hr 120 mg PO BID lorazepam 0.5 mg tablet 0.5 mg PO DAILY levothyroxine 50 mcg tablet 50 mcg PO DAILY Patient Comments: Take 1 tablet by mouth once a day Take on an empty stomach 30 minutes before breakfast or other medications Discharge Instructions Additional Instructions: You were seen in the emergency department for your father's Thornton catheter problem, he had voided through his urethra and we BladderScan him and he voided the remainder after that. It is possible he may not need chronic Thornton catheter in place anymore and I have informed the urology office of this they are happy to follow-up with you please return for any signs of urinary retention, extreme lower abdominal pain, lack of any wet diapers or any other emergent concerns. Referrals: David Massey MD [Primary Care Provider, Medicine] Tamir Osuna MD [ [facility] STAFF PHYSICIAN, Urology] Discharge Data Discharge Date/Time-TO BE ENTERED AT DEPARTURE: 08/08/25 13:26 HPI General Date/Time Provider Initiated Documentation: 08/08/25 12:13. HPI Narrative: 74 year-old male presents to ED today by POV/ambulating with his son with a chief complaint of HomeHealth catheter change problem- HomeHealth visited to change his chronic thornton catheter, but they stated blood came out and he had pain when attempt to insert new cath was made- they referred here. Patient has advanced Alzheimer's. Quality described as unable to qualify, no radiation to abdominal distention, fever, physical complaint at this time. Severity is described as unable to quantify. Palliating factors include nothing specific attempted. Provoking factors include nothing specific. Events leading up to the incident/Associated Symptoms: Patient has been seen by urology here at [facility] in the past as well as [place]rology [place] [facility] [place] Patient is anticoagulated on apixaban. Related Data Home Medications Medication Instructions Recorded Confirmed furosemide 20 mg tablet 20 mg PO DAILY 06/01/21 08/08/25 metformin 1,000 mg tablet 1,000 mg PO BID 01/23/22 08/08/25 levothyroxine 50 mcg tablet 50 mcg PO DAILY 12/03/22 08/08/25 atorvastatin 40 mg tablet 40 mg PO DAILY 12/31/22 08/08/25 metoprolol tartrate 50 mg tablet 50 mg PO BID 04/29/23 08/08/25 lisinopril 5 mg tablet 5 mg PO DAILY 01/28/24 08/08/25 blood sugar diagnostic 02/21/24 08/08/25 blood sugar diagnostic (OneTouch 02/21/24 08/08/25 Ultra Test strips) blood-glucose sensor (Dexcom G7 02/21/24 08/08/25 Sensor device) blood-glucose,tank truck engine mechanic,cont 02/21/24 08/08/25 (Dexcom G7 Ceramics Instructor) lancets 33 gauge 02/21/24 08/08/25 nystatin 100,000 unit/gram topical 1 applic topical BID 02/21/24 08/08/25 powder (Nystop) pen needle, diabetic 32 gauge x 02/21/24 08/08/2532 (BD Ultra-Fine Claribel Pen Needle) diltiazem HCl 120 mg 120 mg PO BID 02/24/24 08/08/25 capsule,extended release 24 hr polyethylene glycol 3350 17 17 g PO DAILY PRN 06/25/24 08/08/25 gram/dose oral powder (Miralax) levetiracetam 500 mg tablet 500 mg PO BID #180 tabs 11/17/24 08/08/25 acetaminophen 500 mg capsule 500 mg PO Q6H PRN 05/11/25 08/08/25 semaglutide 14 mg tablet (Rybelsus) 14 mg PO DAILY 05/11/25 08/08/25 apixaban 5 mg tablet (Eliquis) 5 mg PO BID #180 tabs 06/29/25 08/08/25 lorazepam 0.5 mg tablet 0.5 mg PO DAILY 08/08/25 08/08/25 Previous Rx's Medication Instructions Recorded levetiracetam 500 mg tablet 500 mg PO BID #180 tabs 11/17/24 apixaban 5 mg tablet (Eliquis) 5 mg PO BID #180 tabs 06/29/25 Allergies Allergy/AdvReac Type Severity Reaction Status Date / Time No Known Allergies Allergy Verified 08/08/25 12:06 General Stated Complaint: Urinary TREVOR: 3 Review of Systems All systems reviewed & are unremarkable except as noted in HPI and below Exam Narrative Exam Narrative: GENERAL APPEARANCE: Well-nourished, non-toxic, awake and alert, atraumatic, no acute distress. SKIN: Warm, pink, dry, chronic changes of CVI to feet, no lesions or drainage HEAD: Normocephalic, atraumatic, normal hair distribution for gender/age. EYES: Normal conjunctiva, no exudates on lids/lashes. ENT: Nares patent, no circumoral cyanosis, no facial swelling NECK: Supple, trachea midline, painless cervical ROM. LUNGS/CHEST: Non-labored respirations, normal A/P diameter, symmetrical expansion, no chest wall deformity HEART (CV/PV): No peripheral edema, no JVD. ABDOMEN: Soft, non-distended, no guarding, no tenderness, mild suprapubic distention, normal external genitalia with light yellow/clear urine in underwear. MSK: Normal ROM, no swelling/deformity to bilateral UEs or LEs, moving all extremities without weakness, no cyanosis, spine midline without tenderness, normal curvature. NEURO: Mental Status - at his baseline, global aphasia, denies compalints No facial droop, no forehead involvement. Motor: No focal weakness - strength 5/5 in bilateral UEs and LEs, proximal and distal, symmetric. Sensory: sensation intact to light touch globally. Gait normal: patient ambulated without ataxia into ED room with walker at his baseline PSYCH: flat affect, cooperative, appropriate speech Course Vital Signs Vital signs: Vital Signs Temperature 36.7 C 08/08/25 12:02 Pulse 95 H 08/08/25 12:02 Respiratory Rate 12 08/08/25 12:02 Blood Pressure 170/85 H 08/08/25 12:02 Pulse Oximetry 95 08/08/25 12:02 Temperature 36.7 C 08/08/25 12:02 Temperature Source Oral 08/08/25 12:02 Pulse 95 H 08/08/25 12:02 Respiratory Rate 12 08/08/25 12:02 Blood Pressure 170/85 H 08/08/25 12:02 Blood Pressure Position Sitting 08/08/25 12:02 Pulse Oximetry 95 08/08/25 12:02 Oxygen Delivery Method Room Air 08/08/25 12:02 Oxygen Flow Rate 0 08/08/25 12:02 Medical Decision Making This dictation utilizes [id number] dictation software and may contain unedited grammatical errors. 74 year-old male presents to ED today by POV/ambulating with his son with a chief complaint of HomeHealth catheter change problem- HomeHealth visited to change his chronic thornton catheter, but they stated blood came out and he had pain when attempt to insert new cath was made- they referred here. Patient has advanced Alzheimer's. Quality described as unable to qualify, no radiation to abdominal distention, fever, physical complaint at this time. Severity is described as unable to quantify. Palliating factors include nothing specific attempted. Provoking factors include nothing specific. Events leading up to the incident/Associated Symptoms: Patient has been seen by urology here at [facility] in the past as well as urology [place] [facility] [place]. Patients' medical history: History of UTIs, venous insufficiency, advanced cognitive decline and CVA, partial epilepsy, venous insufficiency, bladder cancer, BPH, diabetes mellitus, status post transurethral destruction of bladder lesion, global aphasia, atrial fibrillation. Family and social history: Lives at home with his son, has adequate home health services. Pertinent exam findings / vital signs include upon inspection patient has no blood in his underwear and he had voided clear/light yellow urine from his urethra, no catheter in place, we did a bladder scan showing 159 mL, upon recheck he had voided this also through his urethra. Differential / pathologies of concern include Thornton catheter problem, possible successful trial of voiding through urethra. Diagnostic studies of: - None. Interventions of: - Patient voided multiple times without the assistance of a catheter here, there was no red or pinkish tinge to the urine and it was clear/light yellow, I discussed this with Jolly mata PA-C of urology office, she can follow-up with the patient in office I placed them on the follow-up list. ED Course/Assessment/Plan: 74-year-old male with history of BPH and chronic Thornton catheter since at least June presents for some blood upon home health changing his catheter today, he has voided through his urethra and had 159 mL in his bladder upon bladder scan and followed by further voiding from urethra I do not suspect any acute urinary retention, we discussed this with the son/chronograph operator, he will trial use of depends, she will call the urology office if he has not heard from them about follow-up. Findings not consistent with acute urinary retention, febrile illness, abdominal distention. Disposition of Thornton catheter status. Patient verbalized understanding of the plan and return to ED criteria and engaged in shared decision making. Medical Records Medical records reviewed: Yes I reviewed the patient's medical records. [facility] All Active Problems (Updated 08/08/25 @ 13:20 by KAY Yepez) Thornton catheter status (Acute) Lesion of lung (Acute) Hematoma of right lower extremity (Acute ~04/28/25) ACP (advance care planning) (Acute) Caregiver stress (Acute) Financial difficulties (Acute) Need for home health care (Acute) Impaired instrumental activities of daily living (Acute) Deficit in activities of daily living (ADL) (Acute) Frequent UTI (Acute) Palliative care patient (Acute) UTI (urinary tract infection) due to urinary indwelling Thornton catheter (Acute) Atrial fibrillation with RVR (Acute) Altered mental state (Acute) Sepsis (Acute) Seizure (Acute) New onset seizure without head trauma (Acute) Global aphasia (Acute) Stroke (Chronic) Dysplastic colon polyp (Acute) Urothelial carcinoma (Acute) 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) Screening for colon cancer (Acute) Recurrent nephrolithiasis (Acute) Medical History UTI (urinary tract infection) Dystrophia unguium Edema, lower extremity Candidiasis of skin Peripheral venous insufficiency Lower urinary tract obstructive syndrome Weakness of both lower extremities Uses self-applied continuous glucose monitoring device Cognitive decline Cerebral infarction Hyperbilirubinemia Cardiomegaly Partial epilepsy 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 Atrial fibrillation with rapid ventricular response Obstructive sleep apnea syndrome (08/10/08) cpap Obstructive uropathy Peripheral neuropathy Venous insufficiency History of depression Iron deficiency CARLOS A on CPAP Hypertension Type 2 diabetes mellitus Dementia Ulcer of [place] limited to breakdown of skin Acute kidney injury superimposed on chronic kidney disease Creatinine elevation Elevated WBCs Hyperglycemia Ureterolithiasis Diabetic leg ulcer Phimosis Venous insufficiency (chronic) (peripheral) Bladder cancer Gross hematuria Chronic venous stasis Noncompliance Anxiety (08/10/08) Asbestosis (08/10/08) Asthma (07/08/12) pt. denies this Carpal tunnel syndrome Olecranon bursitis Peripheral neuralgia Atopic conjunctivitis (10/22/13) Benign prostatic hyperplasia (02/25/13) Depressive disorder (02/25/13) Diabetes mellitus (02/25/13) Essential hypertension (06/24/13) Frequency of micturition (01/03/16) Glaucoma (10/22/13) B/L Hyperlipidemia (02/25/13) Hypermetropia (10/22/13) Hypogonadism Idiopathic peripheral neuropathy Low back pain (08/10/08) Nuclear senile cataract (10/22/13) Obesity (08/10/08) Aviva-en-y 02/2014 Osteoarthritis (08/10/08) BILATERAL KNEE replacements Peptic reflux disease (08/10/08) Presbyopia (10/22/13) Pterygium (08/10/08) LEFT EYE Regular astigmatism (10/22/13) Sensorineural hearing loss, bilateral (09/05/17) Tubular adenoma Tubular and tubulovillous adenoma 2011 --suggested repeat 2017 Umbilical hernia (08/18/12) Urgency of urination (01/03/16) Varicose veins of lower extremity (08/10/08) Urinary tract infection Chronic anticoagulation Atrial fibrillation Surgical History S/P laparoscopic-assisted sigmoidectomy Hx of total knee arthroplasty Pt reports he has had a left and right knee repacement. Pt doesnt remember when and thinks he had it done at [facility] Status post cholecystectomy S/P cholecystectomy (~01/04/21) acute hemorrhagic cholecystitis and xanthogranulomatous inflammation S/P partial colectomy (~05/09/20) History of transurethral destruction of bladder lesion S/P colonoscopy Haddad-2011- tubular and tubulovillous polyps Santiago- 2019- sessile serrated with low grade dysplacia, tubullovillous with high grade dysplacia and tubular adenomas Status post abdominoplasty (05/23/16) Status post tonsillectomy Status post total knee replacement B/L Vasectomy Aviva-en-y surgery for weight loss Ronnell Fundoplication Repair of umbilical hernia Laparoscopic Family History Mother Cancer Father Heart disease Sister Cancer Sister No problems noted. Brother Cancer Brother No problems noted. Brother No problems noted. Son No problems noted. Son No problems noted. Son No problems noted. Social History Smoking/Tobacco Use Status: Never Second Hand Exposure: Yes Smoking risk assessment performed?: Yes Alcohol Intake: never Drug use: Never Substance use type: does not use Caregiver/Support person: No Household members: other Details: son Housing: house Communication Needs: None Education Level: high school Do you need help understanding health information?: Never Pets and animals: No Do you think of yourself as: straight/heterosexual Current gender identity: male What is your relationship status?: How often do you talk on the phone with friends or family?: once per week How often do you get together with friends or relatives?: decline to answer How often do you attend scientology or pentecostalism services?: decline to answer Do you belong to any clubs or organized social groups?: no Panel score (0-1 are the most socially isolated patients): 0 What type of physical activity do you participate in: walking Duration: 15-30 minutes/day Frequency: 1-2 times per week Velia/Jehovah'S Witness: Tenriism Special velia needs: No Seatbelt use: always Helmet use: No Drive intox or ride w/intox transport truck driver: No Do you feel safe at home: Yes Do you feel safe in your relationship?: Yes
== END 2025-08-08 13:26 | disposition home or self-care (01) ==
PROVIDERS: Emergency Provider Physician Assistant; PCP Family Medicine
DX: T83.098A Other mechanical complication of other urinary catheter, initial encounter (principal)
CPT/HCPCS: 99283; 99282; 51798

== ENCOUNTER → 2025-08-18 14:29 | Outpatient (BNVA) | payer MEDICARE, MEDICAID, SELFPAY | PROVIDERS: PCP Family Medicine; Referring Provider Family Medicine; Visit Provider Nurse Practitioner Gerontology | DX: N13.9 Obstructive and reflux uropathy, unspecified (principal); E11.59 Type 2 diabetes mellitus with other circulatory complications; I10 Essential (primary) hypertension; E11.22 Type 2 diabetes mellitus with diabetic chronic kidney disease; N18.9 Chronic kidney disease, unspecified; R39.9 Unspecified symptoms and signs involving the genitourinary system | CPT/HCPCS: 99214; 51798 ==

== ENCOUNTER → 2025-09-16 01:00 | Outpatient (CLI) | payer MEDICARE, MEDICAID, SELFPAY ==
--- NOTE | 2025-09-16 09:30 | DI.US_ITS ---
Exam(s) US RENAL EXAM: US RENAL CLINICAL HISTORY: hydronephrosis hx,OBSTRUCTIVE UROPATHY,BENIGN PROSTATIC HYPERPLASIA. TECHNIQUE: Dozier scale imaging and color doppler were used. COMPARISON: CT CT CHEST/ABD/PEL W from 04/24/2025 FINDINGS: Right kidney: 10.9cm Echogenicity: Normal Hydronephrosis: No Cyst or mass: No Nephrolithiasis: No Left kidney: 9.2cm Echogenicity: Normal Hydronephrosis: No Cyst or mass: No Nephrolithiasis: No Bladder:Normal not well distended. No visible focal mass or stone. Prevoid vol:43 cc Postvoid vol: Not performed Prostate is enlarged with a volume of 50 cc IMPRESSION: No evidence of hydronephrosis. Enlarged prostate. The bladder is not well distended and is not well evaluated. DATA REPOSITORY:
== END ==
LOC: DI 01:00
PROVIDERS: PCP Family Medicine; Visit Provider Nurse Practitioner Gerontology
DX: N13.9 Obstructive and reflux uropathy, unspecified (principal); N40.0 Benign prostatic hyperplasia without lower urinary tract symptoms
CPT/HCPCS: 76770